=== PATIENT | male | born 1960 | race Caucasian/White ===

== ENCOUNTER 2023-01-29 10:30 | Outpatient (OUT) | payer MEDICARE, MEDICAID, SELFPAY ==
--- NOTE | 2023-01-29 10:48 | US_ITS ---
The [address] [address] Patient Name: ERIC CRAIG MRN: [id number] date: 1960 Sex: M Assigned Patient Location: US Current Patient Location: US Accession/Order Number: [id number] Exam Date: 01/29/2023 10:55 Report Date: 01/29/2023 11:50 At the request of: JEREMY MAGALLANES Procedure: US right upper quadrant EXAM: US right upper quadrant HISTORY: Right Upper Quadrant Pain R10.11 COMPARISON: None. TECHNIQUE: Real-time Limited abdomen ultrasound. Findings: Evaluation of the pancreas is limited due to overlying bowel gas. The visualized portions are heterogeneous. The hepatic parenchyma is coarsened and echogenic. No focal intrahepatic mass. The main portal vein is patent and demonstrates hepatopedal flow. The gallbladder is partially distended. No gallstones. No gallbladder wall thickening or pericholecystic fluid. 0.3 x 0.2 x 0.2 cm nonshadowing echogenic focus involving the anterior wall of the fundus. No biliary ductal dilatation. The common bile duct measures 0.6 cm. The right kidney measures 11.5 cm. Good corticomedullary differentiation. No renal stones or collecting system dilatation. IMPRESSION: 1. Coarsened and echogenic hepatic parenchymal echotexture as can be seen with diffuse hepatocellular disease such as fatty infiltration. 2. Probable gallbladder polyp. Electronically authenticated by: SLICK MEYERS Date: 01/29/2023 11:50
[2023-01-29 10:53] LABS: Basophils Percent Auto 0.2 % (0.2-2.0); Eosinophils Percent Auto 0.1 % (0.9-7.0); Hematocrit 48.8 % (42.0-54.0); Hemoglobin 16.8 g/dL (14.0-18.0); Immature Granulocytes Abs Auto 0.07 10^3/uL (0.00-0.03); Immature Granulocytes Pct Auto 0.4 % (0.0-0.5); Lymphocytes Absolute Auto 1.8 10^3/uL (1.2-3.8); Mean Corpuscular HGB Conc 34.4 g/dL (29.9-35.2); Mean Corpuscular Hemoglobin 29.6 pg (25.9-34.0); Mean Corpuscular Volume 85.9 fL (80.0-94.0); Monocytes Percent Auto 5.3 % (1.7-12.0); Platelet Count 309 10^3/uL (150-450); Red Blood Count 5.68 10^6/uL (4.70-6.10); Red Cell Distribution Width 12.9 % (11.0-15.0); White Blood Count 17.8 10^3/uL (4.0-11.0)
[2023-01-29 10:53] LABS: Bilirubin Urine NEGATIVE (NEGATIVE); Blood Urine TRACE-I (NEGATIVE); Clarity Urine CLEAR (CLEAR); Color Urine LT. YELLOW (YELLOW); Glucose Urine UA >=1000 mg/dL (NEGATIVE); Ketones Urine NEGATIVE (NEGATIVE); Leukocyte Esterase Urine NEGATIVE (NEGATIVE); Nitrite Urine NEGATIVE (NEGATIVE); Protein Urine NEGATIVE (NEG/TRACE); Specific Gravity Urine 1.025 (1.005-1.025); Urobilinogen Urine 0.2 EU/dL (0.2-1.0); pH Urine 5.5 (5.0-9.0)
[2023-01-29 11:21] LABS: Alanine Aminotransferase 46 U/L (16-63); Albumin Globulin Ratio 1.1; Alkaline Phosphatase 119 U/L (46-116); Anion Gap 12.7; Aspartate Amino Transferase 13 U/L (15-37); BUN Creatinine Ratio 23.3; Bilirubin Total 0.3 mg/dL (0.2-1.0); Calcium 9.4 mg/dL (8.5-10.1); Carbon Dioxide 27.7 mmol/L (21.0-32.0); Chloride 101 mmol/L (98-107); Estimated GFR (African America >60 (>=60); Estimated GFR (Non-African Ame >60 (>=60); Globulin 3.7 g/dL; Glucose 232 mg/dL (74-106); Potassium 4.4 mmol/L (3.5-5.1); Sodium 137 mmol/L (136-145); Total Protein 7.7 g/dL (6.4-8.2)
== END 2023-01-29 10:31 ==
PROVIDERS: PCP Family Medicine; Visit Provider Family Medicine
DX: R10.11 Right upper quadrant pain (principal)
CPT/HCPCS: 36415; 76705; 80053; 81003; 83690; 85025

== ENCOUNTER 2023-03-04 07:23 | Outpatient (OUT) | payer MEDICARE, MEDICAID, SELFPAY ==
[2023-03-04 08:30] LABS: Basophils Absolute Auto 0.1 10^3/uL (0.0-0.1); Eosinophils Absolute Auto 0.4 10^3/uL (0.0-0.7); Eosinophils Percent Auto 5.7 % (0.9-7.0); Hematocrit 49.2 % (42.0-54.0); Hemoglobin 16.9 g/dL (14.0-18.0); Immature Granulocytes Abs Auto 0.02 10^3/uL (0.00-0.03); Immature Granulocytes Pct Auto 0.3 % (0.0-0.5); Lymphocytes Absolute Auto 2.4 10^3/uL (1.2-3.8); Lymphocytes Percent Auto 30.6 % (20.5-60.0); Mean Corpuscular HGB Conc 34.3 g/dL (29.9-35.2); Mean Corpuscular Hemoglobin 30.1 pg (25.9-34.0); Mean Corpuscular Volume 87.7 fL (80.0-94.0); Mean Platelet Volume 9.1 fL (9.5-13.5); Monocytes Absolute Auto 0.8 10^3/uL (0.3-0.8); Monocytes Percent Auto 10.8 % (1.7-12.0); Neutrophils Percent Auto 51.6 % (43.0-75.0); Platelet Count 322 10^3/uL (150-450); Red Blood Count 5.61 10^6/uL (4.70-6.10); White Blood Count 7.8 10^3/uL (4.0-11.0)
== END 2023-03-04 07:24 | disposition home or self-care (01) ==
LOC: LAB 07:25
PROVIDERS: PCP Family Medicine; Visit Provider Family Medicine
DX: D72.828 Other elevated white blood cell count (principal)
CPT/HCPCS: 36415; 85025

== ENCOUNTER 2023-04-25 19:48 | Emergency (ER) | payer MEDICARE, MEDICAID, SELFPAY ==
[2023-04-25 20:04] VITALS: BP 177/83; PULSE 95; RESP 16; TEMP 38.4; O2SAT 95
--- NOTE | 2023-04-25 20:10 | XR_ITS ---
The [address] [address] Patient Name: ERIC CRAIG MRN: [id number] date: 1960 Sex: M Assigned Patient Location: ER Current Patient Location: ED.MAIN Accession/Order Number: [id number] Exam Date: 04/25/2023 20:51 Report Date: 04/25/2023 21:16 At the request of: KARLEE WOODARD Procedure: XR shoulder RT min 2V EXAM: XR shoulder RT min 2V HISTORY: Injury COMPARISON: None. TECHNIQUE: 3 views of the right shoulder are performed. FINDINGS: There is no acute fracture or dislocation. There is joint space narrowing at the glenohumeral and acromioclavicular joints. The visualized right lung is clear. XR/XR shoulder RT min 2V IMPRESSION: Degenerative changes. No acute bony abnormality. Electronically authenticated by: JACINTO GARCIA Date: 04/25/2023 21:16
--- NOTE | 2023-04-25 20:43 | ED.GENADUL1 ---
HPI - General Adult General Stated complaint: Upper Extremity Pain Time Seen by Provider: 04/25/23 20:00 Source: patient and family Mode of arrival: walk-in Limitations: no limitations History of Present Illness HPI narrative: patient with chronic right shoulder pain - for which he saw Dr Jesus in [place] and was told he had a rotator cuff injury - now presents with pain in the right shoulder that worsened 2 weeks ago after he used the right arm to start a pull start lawnmower and suddenly experienced moderate to severe pain as he aggressively and forcefully pulled. No relief with Tylenol #3. He cannot take aspirin products due to GI bleeding and cannot take ibuprofen or naproxen due to allergy which caused rash. He is scheduled to see Dr Owen in 6 days but the pain is steady, moderate to severe. Wrose with any attempts at right shoulder ROM. Localized to the anterior right shoulder. Non-radiating. No associated symptoms although he does has a bad left shoulder too . Related Data Previous Rx's Medication Instructions Recorded hydrocodone 5 mg-acetaminophen 325 1 tab PO Q6H PRN pain #14 tabs 04/25/23 mg tablet Allergies Allergy/AdvReac Type Severity Reaction Status Date / Time ibuprofen [From Motrin] AdvReac Mild Verified 04/25/23 20:10 [facility] Social History Smoking status: Current every day smoker Exam Narrative Exam Narrative: Nurses notes and vital signs reviewed and patient is not hypoxic. afebrile General: Uncomfortable. Skin: Warm, dry, no pallor noted. No rash. Head: Normocephalic, atraumatic. Cardiovascular: normal peripheral perfusion. Respiratory: No accessory muscle use or respiratory distress. Chest Wall: no tenderness Back: No midline thoracic or lumbar vertebral tenderness. No right scapular or trapezius tenderness Musculoskeletal: focal tenderness to the anterior right shoulder with increased pain with both active and passive ROM in all modalities. Right shoulder joint is not swollen, warm, erythematous. No right clavicular tenderness and little to no tenderness in the superior or lateral aspects of the right shoulder. Distal right UE with normal ROM, no distal soft tissue or bony tenderness, no upper extremity edema/swelling Neurological: A&O x4. No cranial nerve dysfunction observed. No truncal ataxia. Moves all extremities. Sensation intact. Psychiatric: Cooperative and interactive. Normal mood and affect. Constitutional Vital Signs, click to edit/add: Last Vital Signs Temp 101.2 F H 04/25/23 20:04 Pulse 95 H 04/25/23 20:04 Resp 16 04/25/23 20:04 BP 177/83 H 04/25/23 20:04 Pulse Ox 95 04/25/23 20:04 O2 Del Method Room Air 04/25/23 20:04 Course Vital Signs Vital signs: Vital Signs Temperature 101.2 F H 04/25/23 20:04 Pulse Rate 95 H 04/25/23 20:04 Respiratory Rate 16 04/25/23 20:04 Blood Pressure 177/83 H 04/25/23 20:04 Pulse Oximetry 95 04/25/23 20:04 Oxygen Delivery Method Room Air 04/25/23 20:04 Temperature 101.2 F H 04/25/23 20:04 Pulse Rate 95 H 04/25/23 20:04 Respiratory Rate 16 04/25/23 20:04 Blood Pressure 177/83 H 04/25/23 20:04 Pulse Oximetry 95 04/25/23 20:04 Oxygen Delivery Method Room Air 04/25/23 20:04 Medical Decision Making MDM Narrative Medical decision making narrative: patient given IM Dilaudid and sent for x-rays of the right shoulder. No fracture or dislocation noted. ED nurse applied a sling tot he patient's right UE and he was neurovascularly intact distally afterward. He has a fever - denies any cough, cold symptoms. No cough, abdominal pain, GI or complaints. The right shoulder joint has no erythema, warmth or swelling and the mechanism of using the right arm to start a pull mower is consistent with right rotator cuff injury. I do not think he has a septic joint. He refuses Covid swab or swab for any other pathogen. We discussed the use of tylenol tonight for the fever until he gets the [place] filled. He was prescribed [place] to take at home for the pain and I encouraged him to see Dr Jesus for follow up. I also encouraged him to come back to the ER if his pain worsens rather than improves and if the fever persists. Imaging Data xr shoulder: My impression: no fracture or dislocation. Radiologist's impression: Patient Name: ERIC CRAIG MRN: [id number] date: 1960 Sex: M Assigned Patient Location: ER Current Patient Location: ED.MAIN Accession/Order Number: [id number] Exam Date: 04/25/2023 20:51 Report Date: 04/25/2023 21:16 At the request of: KARLEE WOODARD Procedure: XR shoulder RT min 2V EXAM: XR shoulder RT min 2V HISTORY: Injury COMPARISON: None. TECHNIQUE: 3 views of the right shoulder are performed. FINDINGS: There is no acute fracture or dislocation. There is joint space narrowing at the glenohumeral and acromioclavicular joints. The visualized right lung is clear. IMPRESSION: Degenerative changes. No acute bony abnormality. Electronically authenticated by: JACINTO GARCIA Date: 04/25/2023 21:16 Discharge Plan Discharge Clinical Impression: Rotator cuff arthropathy of right shoulder, Acute pain of right shoulder, Fever Patient Disposition: Home, Self-Care Time of Disposition Decision: 21:10 Prescriptions / Home Meds: New hydrocodone-acetaminophen 5-325 mg tablet 1 tab PO Q6H PRN (Reason: pain) Qty: 14 0RF Instructions: Rotator Cuff Injury (ED), Shoulder Pain (ED), Fever in Adults (ED) Stand Alone Forms: Portal Instructions Referrals: Dakota Govea MD [Physician] - 1 week
[2023-04-25] MEDS: HYDROMORPHONE HCL 1 MG/ML CARTRIDGE IM (21:09)
[2023-04-25 21:16] VITALS: PULSE 88; RESP 16; TEMP 37.6; O2SAT 95
== END 2023-04-25 21:35 | disposition home or self-care (01) ==
PROVIDERS: Emergency Provider Emergency Medicine; PCP Family Medicine
DX: M12.811 Other specific arthropathies, not elsewhere classified, right shoulder (principal); M25.511 Pain in right shoulder; R50.9 Fever, unspecified; F17.210 Nicotine dependence, cigarettes, uncomplicated
CPT/HCPCS: 73030; 96372; 99284; J1170

== ENCOUNTER 2023-07-02 11:08 | Outpatient (OUT) | payer MEDICARE, MEDICAID, SELFPAY ==
--- NOTE | 2023-07-02 11:18 | ECG_ITS ---
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
[2023-07-02 11:49] LABS: Basophils Absolute Auto 0.1 10^3/uL (0.0-0.1); Basophils Percent Auto 0.8 % (0.2-2.0); Eosinophils Absolute Auto 0.2 10^3/uL (0.0-0.7); Eosinophils Percent Auto 2.7 % (0.9-7.0); Hematocrit 49.2 % (42.0-54.0); Hemoglobin 16.6 g/dL (14.0-18.0); Immature Granulocytes Abs Auto 0.02 10^3/uL (0.00-0.03); Immature Granulocytes Pct Auto 0.3 % (0.0-0.5); Lymphocytes Absolute Auto 2.8 10^3/uL (1.2-3.8); Lymphocytes Percent Auto 37.7 % (20.5-60.0); Mean Corpuscular HGB Conc 33.7 g/dL (29.9-35.2); Mean Corpuscular Hemoglobin 29.6 pg (25.9-34.0); Mean Corpuscular Volume 87.9 fL (80.0-94.0); Mean Platelet Volume 8.7 fL (9.5-13.5); Monocytes Absolute Auto 0.7 10^3/uL (0.3-0.8); Monocytes Percent Auto 9.7 % (1.7-12.0); Neutrophils Absolute Auto 3.7 10^3/uL (1.4-6.5); Neutrophils Percent Auto 48.8 % (43.0-75.0); Platelet Count 308 10^3/uL (150-450); Red Cell Distribution Width 12.7 % (11.0-15.0); White Blood Count 7.5 10^3/uL (4.0-11.0)
[2023-07-02 12:10] LABS: Estimated Average Glucose 263 mg/dL; Glycohemoglobin A1C 10.8 % (4.5-6.2)
[2023-07-02 12:11] LABS: Alanine Aminotransferase 42 U/L (16-63); Albumin Globulin Ratio 1.1; Albumin Level 3.8 g/dL (3.4-5.0); Alkaline Phosphatase 113 U/L (46-116); Anion Gap 7.3; Aspartate Amino Transferase 14 U/L (15-37); BUN Creatinine Ratio 15.4; Bilirubin Total 0.5 mg/dL (0.2-1.0); Calcium 9.1 mg/dL (8.5-10.1); Chloride 100 mmol/L (98-107); Chol HDL Ratio 4.1; Cholesterol 218 mg/dL (<=200); Estimated GFR (African America >60 (>=60); Estimated GFR (Non-African Ame >60 (>=60); Globulin 3.4 g/dL; Glucose 185 mg/dL (74-106); HDL Cholesterol 53 mg/dL (40-60); Magnesium 2.2 mg/dL (1.8-2.4); Potassium 4.3 mmol/L (3.5-5.1); Sodium 134 mmol/L (136-145); Total Protein 7.2 g/dL (6.4-8.2); Triglycerides 204 mg/dL (<=150); VLDL CHOLESTEROL 40.8 mg/dL
[2023-07-02 12:40] LABS: Erythrocyte Sedimentation Rate 22 mm/hr (<=20)
== END 2023-07-02 11:09 | disposition home or self-care (01) ==
LOC: LAB 11:10
PROVIDERS: PCP Family Medicine; Visit Provider Family Medicine
DX: E11.65 Type 2 diabetes mellitus with hyperglycemia (principal); R25.2 Cramp and spasm; R07.9 Chest pain, unspecified
CPT/HCPCS: 36415; 80053; 80061; 83036; 83735; 85025; 85652; 93005

== ENCOUNTER 2023-08-23 21:48 | Emergency (ER) | payer MEDICARE, MEDICAID, SELFPAY ==
[2023-08-23] VITALS (17 sets, daily range): BP systolic 132–185; BP diastolic 75–98; PULSE 74–84; RESP 10–24; TEMP 37.7; O2SAT 93–98; BMI 31.4
--- OUTSIDE RECORDS SUMMARY | 2023-08-23 21:56 | XMS_ITS | CCD ---
Author Name Unknown Address [address] [place] [address] Organization [facility] Care Team Providers Care Hematologist Oncologist Name Role Phone Kesha Trujillo Unavailable Harriet Mo Unavailable Hannah Magallanes Unavailable SONA, DR HANNAH Jovel Admitting Unavailable MAGALLANES, DR HANNAH Jovel Attending Unavailable MAGALLANES, DR HANNAH Jovel Primary Care Unavailable MAGALLANES, DR HANNAH Jovel Consulting Unavailable TAVERASRUBI Consulting Unavailable OLEXA, KESHA Admitting Unavailable OLEXA, KESHA Attending Unavailable MAGALLANES, DR HANNAH Jovel Primary Care Unavailable TAUNTON, DR BARBIE Goldberg Consulting Unavailable OLEXA, KESHA Consulting Unavailable OLEXA, KESHA Admitting Unavailable OLEXA, KESHA Attending Unavailable MAGALLANES, DR HANNAH Jovel Primary Care Unavailable MAGALLANES, DR HANNAH Jovel Referring Unavailable ZIEBER, DR YEISON Drummond Consulting Unavailable OLEXA, KESHA Consulting Unavailable BALL, DR VILLALOBOS Admitting Unavailable BALL, DR VILLALOBOS Attending Unavailable MAGALLANES, DR HANNAH Jovel Primary Care Unavailable BALL, DR VILLALOBOS Consulting Unavailable ZIEBER, DR YEISON Drummond Consulting Unavailable MAGALLANES, DR HANANH Jovel Admitting Unavailable MAGALLANES, DR HANNAH Jovel Attending Unavailable MAGALLANES, DR HANNAH Jovel Primary Care Unavailable OLEXA, KESHA Admitting Unavailable OLEXA, KESHA Attending Unavailable MAGALLANES, DR HANNAH Jovel Primary Care Unavailable MAGALLANES, DR HANNAH Jovel Primary Care Unavailable HAY ., DR DESIR Admitting Unavailable VANCE ., DR DESIR Attending Unavailable HAY ., DR DESIR Consulting Unavailable SONA, DR HANNAH Jovel Primary Care Unavailable BREE, DR CARLOS Drummond Admitting Unavailable BREE, DR CARLOS Drummond Attending Unavailable BREE, DR CARLOS Drummond Consulting Unavailable MILLIE, JOHN Consulting Unavailable HANNAH MAGALLANES Primary Care Physician [phone] Edin, Barbie Tellez Referring Unavailable Pocos, Barbie Tellez Attending Unavailable Pocos, Barbie Tellez Admitting Unavailable POCOS, BARBIE Tellez Attending Unavailable Allergies Allergy Classification Reported Allergen(s) Allergy Type Date of Onset Reaction(s) Facility (20 sources) Ibuprofen Drug Allergy hives [facility] Other (20 sources) olodaterol / tiotropium Drug Allergy shortness of breath [facility] Other (20 sources) CT Scan dye Propensity to adverse reactions [facility] Other (2 sources) Ibuprofen Drug Allergy 08-19-18 80 [facility] Repository (2 sources) Iodine (And Iodine Containting Drugs) Drug allergy (disorder) 09-07-19 16 [facility] Repository (1 source) NSAIDs Drug allergy (disorder) [facility] Repository (20 sources) fentaNYL Drug Allergy Unknown [facility] Other (3 sources) Ibuprofen Drug Allergy 01-15-20 15 Unknown [facility] Other (20 sources) Ofloxacin Drug Allergy Unknown [facility] Other (3 sources) zafirlukast Drug Allergy 01-15-20 15 Unknown [facility] Other (20 sources) Zafirlukast *ANTIASTHMATIC AND BRONCHODILATOR AGEN Propensity to adverse reactions Unknown [facility] Other (20 sources) Ibuprofen & Diet Manage Prod *ANALGESICS - ANTI-IN Propensity to adverse reactions Unknown [facility] Other (3 sources) Allergies Reconciled Propensity to adverse reactions Unknown [facility] Other (20 sources) Iodinated contrast media (substance) Drug allergy Unknown [facility] Other (3 sources) patient allergy list reviewed by nurse or physicia Propensity to adverse reactions 10-05-19 16 Comment:Done [facility] Other Medications Current Medications Medication Drug Class(es) Dates Sig (Normalized) Sig (Original) Acetaminophen / Codeine (20 sources) Opioid Agonist Start: 04-24-2023 take 1 tablet by mouth every six hours as needed Acetaminophen-Cod eine #3 300-30 MG 1 tablet as needed Orally every 6 hrs for 30 days Apr, Active Start: 04-24-2023 take 1 tablet by desirae th every six hours Acetaminophen-Codeine #3 300-30 MG 1 tablet as needed Orally every 6 hrs for 30 days Apr, Active Start: 03-25-2023 take 1 tablet by desirae th every six hours Acetaminophen-Codeine #3 300-30 MG 1 tablet as needed Orally every 6 hrs for 30 days Mar, Active Start: 02-22-2023 take 1 tablet by desirae th every six hours Acetaminophen-Codeine #3 300-30 MG 1 tablet as needed Orally every 6 hrs for 30 days Feb, Active Start: 02-20-2023 take 1 tablet by desirae th every six hours Acetaminophen-Codeine #3 300-30 MG 1 tablet as needed Orally every 6 hrs for 30 days Feb, Active Start: 01-17-2023 take 1 tablet by desirae th every six hours Acetaminophen-Codeine #3 300-30 MG 1 tablet as needed Orally every 6 hrs for 30 days Jan, Active Start: 12-24-2022 take 1 tablet by desirae th every six hours Acetaminophen-Codeine #3 300-30 MG 1 tablet as needed Orally every 6 hrs for 30 days December, Active Start: 11-27-2022 take 1 tablet by desirae th every six hours Acetaminophen-Codeine #3 300-30 MG 1 tablet as needed Orally every 6 hrs for 30 days Nov, Active Start: 10-31-2022 Acetaminophen- Codeine #4 300-60 MG 2 Orally bid prn for 30 days Oct, Active Start: 10-03-2022 Acetaminophen- Codeine #4 300-60 MG 2 Orally bid prn for 30 days Sep, Active take 1 tablet by desirae th every six hours Acetaminophen-Codeine #4 300-60 MG 1 tablet as needed Orally every 6 hrs Active acetaminophen 325 mg / HYDROcodone bitartrate 10 mg oral tablet (18 sources) Opioid Agonist Start: 08-13-2023 take 1 tablet by mouth every six hours HYDROcodone-Acetaminophen 10-325 MG 1 tablet as needed Orally every 6 hrs for 7 days Jul, Active Start: 07-23-2023 take 1 tablet by desirae th every six hours HYDROcodone-Acetaminophen 10-325 MG 1 tablet as needed Orally every 6 hrs for 30 days Jul, Active Start: 07-23-2023 take 1 tablet by desirae th every six hours HYDROcodone-Acetaminophen 10-325 MG 1 tablet as needed Orally every 6 hrs for 30 days Jul, Active Start: 07-23-2023 take 1 tablet by desirae th every six hours HYDROcodone-Acetaminophen 10-325 MG 1 tablet as needed Orally every 6 hrs for 30 days Jul, Active Start: 06-20-2023 take 1 tablet by desirae th every six hours HYDROcodone-Acetaminophen 10-325 MG 1 tablet as needed Orally every 6 hrs for 30 days Jun, Active Start: 06-18-2023 take 1 tablet by desirae th every six hours HYDROcodone-Acetaminophen 10-325 MG 1 tablet as needed Orally every 6 hrs for 7 days May, Active Start: 06-10-2023 take 1 tablet by desirae th every six hours HYDROcodone-Acetaminophen 10-325 MG 1 tablet as needed Orally every 6 hrs for 7 days May, Active Start: 06-03-2023 take 1 tablet by desirae th every six hours HYDROcodone-Acetaminophen 10-325 MG 1 tablet as needed Orally every 6 hrs for 7 days May, Active Start: 05-28-2023 take 1 tablet by desirae th every six hours HYDROcodone-Acetaminophen 10-325 MG 1 tablet as needed Orally every 6 hrs for 7 days May, Active Start: 2023 take 1 tablet by desirae th every six hours HYDROcodone-Acetaminophen 10-325 MG 1 tablet as needed Orally every 6 hrs for 7 days May, Active [id number] actuat albuterol 0.09 mg/actuat metered dose inhaler (10 sources) beta2-Adrenergic Agonist Start: 06-25-2023 take 2 puff(s) by inhalation every four hours as needed Albuterol Sulfate HFA 108 (90 Base) MCG/ACT 2 puff Inhalation every 4 hrs prn Jun, Active Start: 06-25-2023 take 2 puff(s) by in halation every four hours as needed Albuterol Sulfate HFA 108 (90 Base) MCG/ACT 2 puff Inhalation every 4 hrs prn Jun, Active Start: 06-25-2023 take 2 puff(s) by in halation every four hours as needed Albuterol Sulfate HFA 108 (90 Base) MCG/ACT 2 puff Inhalation every 4 hrs prn Jun, Active amoxicillin 875 mg / clavulanate 125 mg oral tablet (6 sources) Penicillin-class Antibacterial Start: 10-31-2022 take 1 tablet by mouth every twelve hours Amoxicillin-Pot Clavulanate 875-125 MG 1 tablet Orally every 12 hrs for 10 day(s) Oct, Active atorvastatin 20 mg oral tablet (9 sources) HMG-CoA Reductase Inhibitor take 1 tablet by mouth every twenty-four hours Atorvastatin Calcium 20 MG 1 tablet Orally Once a day for 30 days Active azithromycin 250 mg oral tablet (20 sources) Macrolide Antimicrobial Start: 05-28-2023 Azithromycin 250 MG as directed Orally 2 tabs po today, then 1 tab daily x 4 more days for 5 May, Active Start: 04-30-2023 Azithromycin 2 50 MG as directed Orally 2 tabs po today, then 1 tab daily x 4 more days for 5 Apr, Active Start: 05-26-2021 Azithromycin 2 50 MG as directed Orally 2 tabs po today, then 1 tab daily x 4 more days for 5 Nov, Active DULoxetine 60 mg delayed release oral capsule (8 sources) Serotonin and Norepinephrine Reuptake Inhibitor Start: 02-20-2023 take 1 capsule by mouth every twenty-four hours Cymbalta 60 MG 1 capsule Orally Once a day for 30 days Feb, Active glipiZIDE 5 mg / metFORMIN hydrochloride 500 mg oral tablet (9 sources) Biguanide, Sulfonylurea take 2 tablets by mouth twice daily glipiZIDE-met FORMIN HCl 5-500 MG 2 tab Orally bid Active take 1 tablet by mouth twice cynthia ly glipiZIDE-metFORMIN HCl 5-500 MG 1 tablet with a meal Orally bid for 30 days Active methylPREDNISolone 4 mg oral tablet (12 sources) Corticosteroid Start: 05-28-2023 methylPREDNISo lone 4 MG as directed Orally for 6 days May, Active Start: 05-26-2021 Medrol (Boris) 4 MG as directed Orally for daily dose take half with breakfast half with dinner for 6 days May, Not-Taking predniSONE 10 mg oral tablet (14 sources) Start: 04-30-2023 predniSONE 10 MG 4 tabs po daily x 2 days, 3 tabs daily x 2 days, 2 tabs daily x 2 days, 1 tab daily x 2 days Orally Once a day for 8 12 Apr, 2023 Active Start: 11-23-2022 take 2 tablets by mo [facility] every twenty-four hours predniSONE 20 MG 2 tablets Orally Once a day for 5 days Nov, Active predniSONE 20 MG TAKE 3 TABLETS BY MOUTH DAILY X 3 DAYS, 2 TABLETS DAILY X 3 DAYS, 1 TABLET DAILY X 3 DAYS for 9 Active Completed/Discontinued Medications Medication Drug Class(es) Dates Sig (Normalized) Sig (Original) dextromethorphan hydrobromide 30 mg / pyrilamine maleate 30 mg oral tablet (5 sources) Uncompetitive Y-ivfdiu-R-aspartate Receptor Antagonist, Sigma-1 Agonist Start: 05-26-2021 take 1 tablet by mouth every eight hours [place] DMT 30-30 MG 1 tablet Orally every 8 hours for 7 days May, Not-Taking triamcinolone acetonide 40 mg/ml injectable suspension (20 sources) Corticosteroid Start: 12-12-2021 Kenalog-40 Nov, 40 mg Start: 12-12-2021 Kenalog -40 mg Nov, 40 mg Problems Active Problems Problem Classification Problem Date Documented Da te Episodic/Chronic Abdominal pain (20 sources) Right upper quadrant pain; Translations: [Right upper quadrant pain] Onset: 9 Episodic Acute bronchitis (9 sources) Acute bronchitis; Translations: [Acute bronchitis due to other specified organisms] Onset: 8 Episodic Anxiety disorders (3 sources) Anxiety disorder; Translations: [Other specified anxiety disorders] Onset: 9 Chronic Asthma (20 sources) Mild intermittent asthma; Translations: [Mild intermittent asthma, uncomplicated] Onset: 5 Chronic Biliary tract disease (20 sources) Chronic cholecystitis due to gallbladder calculus with obstruction; Translations: [Calculus of gallbladder with chronic cholecystitis with obstruction] Onset: 6 Episodic Chronic obstructive pulmonary disease and bronchiectasis (20 sources) Chronic obstructive lung disease; Translations: [Chronic obstructive pulmonary disease, unspecified] Onset: 9 Chronic Chronic obstructive pulmonary disease and bronchiectasis (12 sources) Bronchitis, not specified as acute or chronic; Translations: [Bronchitis] Onset: 1 Resolved: 1 Episodic Diabetes mellitus with complications (20 sources) Hyperglycemia due to type 2 diabetes mellitus; Translations: [Type 2 diabetes mellitus with hyperglycemia] Onset: 9 Chronic Diabetes mellitus without complication (4 sources) Type 2 diabetes mellitus without complications; Translations: [Type 2 diabetes mellitus without complication] Onset: 7 Chronic Diseases of white blood cells (20 sources) Leukocytosis; Translations: [Other elevated white blood cell count] Chronic Disorders of teeth and jaw (3 sources) Jaw pain; Translations: [Jaw pain] Episodic Esophageal disorders (20 sources) Gastroesophageal reflux disease without esophagitis; Translations: [Gastro-esophageal reflux disease without esophagitis] Chronic Gastrointestinal hemorrhage (20 sources) Rectal hemorrhage; Translations: [Hemorrhage of anus and rectum] Onset: 6 Episodic Genitourinary symptoms and ill-defined conditions (3 sources) Blood in urine; Translations: [Hematuria, unspecified] Episodic Malaise and fatigue (3 sources) Fatigue; Translations: [Other fatigue] Episodic Nonspecific chest pain (8 sources) Chest pain, unspecified; Translations: [Chest pain] Onset: 6 Episodic Osteoarthritis (20 sources) Osteoarthritis of joint of left shoulder region; Translations: [Primary osteoarthritis, left shoulder] Onset: 2 Resolved: 2 Chronic Other connective tissue disease (20 sources) Supraspinatus tear; Translations: [Unspecified rotator cuff tear or rupture of left shoulder, not specified as traumatic] Episodic Other connective tissue disease (20 sources) Full thickness rotator cuff tear; Translations: [Complete rotator cuff tear or rupture of left shoulder, not specified as traumatic] Episodic Other connective tissue disease (3 sources) Neuralgia; Translations: [Neuralgia and neuritis, unspecified] Episodic Other connective tissue disease (1 source) Cramp and spasm Episodic Other connective tissue disease (1 source) Unspecified disorder of synovium and tendon, right shoulder Episodic Other diseases of bladder and urethra (3 sources) Disorder of bladder; Translations: [Other specified disorders of bladder] Chronic Other gastrointestinal disorders (1 source) Other fecal abnormalities Episodic Other gastrointestinal disorders (3 sources) Abnormal feces; Translations: [Other fecal abnormalities] Episodic Other gastrointestinal disorders (20 sources) Dysphagia; Translations: [Dysphagia, unspecified] Episodic Other liver diseases (20 sources) High enzyme level in serum; Translations: [Abnormal levels of other serum enzymes] Episodic Other lower respiratory disease (20 sources) Dyspnea; Translations: [Shortness of breath] Episodic Other nervous system disorders (4 sources) Other chronic pain; Translations: [OTHER CHRONIC PAIN] Onset: 2 Chronic Other nervous system disorders (20 sources) Chronic pain; Translations: [Other chronic pain] Chronic Other non-traumatic joint disorders (20 sources) Derangement of left shoulder joint; Translations: [Other specific joint derangements of left shoulder, not elsewhere classified] Chronic Other non-traumatic joint disorders (4 sources) Other specific joint derangements of left shoulder, not elsewhere classified; Translations: [OTH SPEC JOINT DERANG LT SHLDR NEC] Onset: 2 Chronic Other non-traumatic joint disorders (8 sources) Pain in left shoulder; Translations: [PAIN IN LEFT SHOULDER] Onset: 2 Resolved: 2 Episodic Other non-traumatic joint disorders (9 sources) Pain in right shoulder Episodic Other nutritional; endocrine; and metabolic disorders (20 sources) Body mass index 40+ - severely obese; Translations: [Body mass index (BMI) 45.0-49.9, adult] Chronic Other nutritional; endocrine; and metabolic disorders (3 sources) Obese class I; Translations: [Body mass index (BMI) 32.0-32.9, adult] Chronic Other nutritional; endocrine; and metabolic disorders (3 sources) Obesity; Translations: [Obesity, unspecified] Onset: 8 Chronic Other upper respiratory disease (20 sources) Chronic rhinitis; Translations: [Chronic rhinitis] Chronic Other upper respiratory disease (3 sources) Seasonal allergic rhinitis; Translations: [Other seasonal allergic rhinitis] Chronic Otitis media and related conditions (3 sources) Otitis media; Translations: [Otitis media, unspecified, unspecified ear] Episodic Residual codes; unclassified (20 sources) H/O: asbestos exposure; Translations: [Contact with and (suspected) exposure to asbestos] Onset: 5 Episodic Spondylosis; intervertebral disc disorders; other back problems (20 sources) Degeneration of lumbar intervertebral disc; Translations: [Other intervertebral disc degeneration, lumbar region] Onset: 6 Chronic Sprains and strains (2 sources) Superior glenoid labrum lesion of right shoulder, subsequent encounter Episodic Substance-related disorders (20 sources) Smoker; Translations: [Nicotine dependence, unspecified, uncomplicated] Onset: 2 Resolved: 2 Chronic Past or Other Problems Problem Classification Problem Date Documented Da te Episodic/Chronic Blindness and vision defects (4 sources) Other visual disturbances; Translations: [OTHER VISUAL DISTURBANCES] Onset: 12-28-2021 Episodic Calculus of urinary tract (1 source) Personal history of urinary calculi; Translations: [PERSONAL HISTORY OF URINARY CALCULI] Onset: 06-11-2022 Episodic Deficiency and other anemia (3 sources) Iron deficiency anemia; Translations: [Iron deficiency anemia, unspecified] Onset: 09-17-2016 Episodic Diabetes mellitus without complication (3 sources) Hyperglycemia; Translations: [Hyperglycemia, unspecified] Onset: 01-08-2017 Episodic Lymphadenitis (3 sources) Acute lymphadenitis; Translations: [Acute lymphadenitis, unspecified] Onset: 08-29-2017 Episodic Nonmalignant breast conditions (3 sources) Pain of breast; Translations: [Mastodynia] Onset: 10-05-2015 Episodic Other aftercare (1 source) 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; Translations: [OTH SUPERINTENDENT [employer]ARD [employer]ILL CURRENT DRUG THERAPY] Onset: 12-29-2021 Episodic Other connective tissue disease (1 source) Unspecified rotator cuff tear or rupture of left shoulder, not specified as traumatic Onset: 02-06-2022 Resolved: 02-06-2022 Episodic Other connective tissue disease (1 source) Complete rotator cuff tear or rupture of left shoulder, not specified as traumatic Onset: 12-12-2021 Resolved: 12-12-2021 Episodic Other connective tissue disease (1 source) Unspecified disorder of synovium and tendon, left shoulder Onset: 12-12-2021 Resolved: 12-12-2021 Episodic Other ear and sense organ disorders (3 sources) Impacted cerumen; Translations: [Impacted cerumen] Onset: 03-13-2018 Episodic Pneumonia (except that caused by tuberculosis or sexually transmitted disease) (3 sources) Pneumonia; Translations: [Pneumonia, unspecified organism] Onset: 07-28-2015 Episodic Spondylosis; intervertebral disc disorders; other back problems (4 sources) Radiculopathy, lumbar region; Translations: [Dorsalgia, unspecified] Onset: 06-11-2022 Episodic Syncope (3 sources) Syncope and collapse; Translations: [Syncope and collapse] Onset: 09-21-2016 Episodic Results Test Name Value Interpretation Reference Range Facility [facility] 07-02-2023 Magnesium [Mass/Vol] 2.7575313 mg/dL Normal 1.8-2.4 mg/dL [facility] Other Magnesium see note [facility] Other MRI Shoulder w/o Contrast Ilya holt 05-31-2023 MRI Shoulder w/o Contrast Right Exam Date/Time: 05/30/2023 14:25 EDT Reason for Exam: [id number] Report IMPRESSION: Full-thickness rotator cuff tearing involving entire infraspinatus, and portion of supraspinatus as discussed. EXAMINATION: MRI Shoulder w/o Contrast Right HISTORY: Right shoulder pain. Injury starting a leaf blower. TECHNIQUE: Routine non-contrast MRI of the shoulder , right side COMPARISON: None RESULT: Overall limitations from motion. Best possible images submitted. Repeat sequences performed. Within these limits: Rotator Cuff Tendons: Full-thickness rotator cuff tearing involving entire infraspinatus, and the more posterior/junctional fibers of supraspinatus, with medial retraction of torn fibers to near the acromion, with underlying tendinosis. The more anterior fibers of supraspinatus appear grossly intact within limits of motion. Mild tendinosis involving subscapularis, without distinct tear. Teres minor appears intact. Areas of reactive cystic change at the insertions. Long Head Biceps Tendon: Appears intact with appropriate location. Muscle: Diffuse edema signal involving infraspinatus. Small amount of edema involving supraspinatus. No distinct associated volume loss. Labrum: Areas of fraying and/or tearing. Bones and Marrow: No evidence of fracture or bone marrow replacing process. Glenohumeral Joint: Osteophytes without distinct measurable full-thickness chondral defect within limits of motion. Small joint effusion. Acromioclavicular Joint: Moderate to severe degenerative changes with subchondral cystic change, undersurface osteophytes. Other: Fluid extending into the subacromial subdeltoid bursa. Report Ordering Provider: Barbie Jesus FINAL REPORT Dictated: 05/31/2023 11:50 am Ian Singh MD Signed (Electronic Signature): 05/31/2023 11:50 am Signed by: Ian Singh MD Transcribed by: TAMARA Technologist: STELLA Technical Comments None Normal [facility] Consent for Treatmenton 05-19 Consent for Treatment [id number] 0TIFF Normal [facility] RAD - MRI Screening Formon 1 RAD - MRI Screening Form [id number] TIFF Normal [facility] Physician Orderon 05-09-2023 Physician Order [id number]. 00CD:127 Normal [facility] XR CHEST 2 Von 11-24-2022 XR CHEST 2 V EXAM: CHEST 2 VIEWS HISTORY: Bronchitis TECHNIQUE: PA and lateral views chest. COMPARISON: 11/21/2019 FINDINGS: The lungs are clear. There is no focal lung consolidation, pleural effusion or pneumothorax. Pulmonary vasculature is within normal limits. The cardiomediastinal silhouette is normal. IMPRESSION: 1. Lungs clear without consolidation or effusion. Recommend followup imaging if symptoms worsen or persist. Electronically authenticated by: RUBI TAVERAS Date: 2022-11-24 17:17 Normal [facility] CT LUNG CANCER SCREENINGon 09-20-2021 CT LUNG CANCER SCREENING EXAMINATION: CT LUNG CANCER SCREENING HISTORY: Tobacco dependence caused by cigarettes COMPARISON: CT chest 05/19/2020 TECHNIQUE: Axial, Coronal, and Sagittal images were created without the administration of IV contrast material. Dose reduction techniques were achieved by using automated exposure control and/or adjustment of mA and/or kV according to patient size and/or use of iterative reconstruction technique. FINDINGS: LUNGS: No visible pulmonary disease. PLEURA: No mass, effusion, or pneumothorax. VASCULATURE: No abnormality. ROMÁN: No mass or pathologic adenopathy. MEDIASTINUM: No mass or pathologic adenopathy. CARDIAC: No enlargement, pericardial thickening, or significant calcification. AORTA: No aneurysm or dissection. CHEST WALL: No mass or axillary adenopathy BONES: No bone lesion or fracture. LIMITED ABDOMEN: No suspicious findings. Limited images of the upper abdomen. OTHER: Negative. IMPRESSION: 1. Lung-RADS Category 1 Negative. No nodules and definitely benign nodules. Continue annual screening with LDCT in 12 months. Electronically authenticated by: YEISON NAVAS Date: 2022-07-20 07:18 Normal [facility] CBC AUTO DIFFon 06-07-2022 BASO # 0.1 103/ul Normal 0.0-0.1 [facility] Comment on above: Performed By: #### C BC #### [facility] [address] [address] [address] Eran Chacon Basophils/100 WBC (Bld) 0.6 % Normal 0.2-2.0 [facility] Comment on above: Performed By: #### C BC #### [facility] [address] [address] [address] Eran Chacon EO # 0.3 103/ul Normal 0.0-0.7 [facility] Comment on above: Performed By: #### C BC #### [facility] [address] [address] [address] Eran Chacon Eosinophils/100 WBC (Bld) 3.3 % Normal 0.9-7.0 [facility] Comment on above: Performed By: #### C BC #### [facility] [address] [address] [address] Eran Chacon Erythrocyte distribution width (RBC) [Ratio] 12.9 % Normal 11.0-15.0 [facility] Comment on above: Performed By: #### C BC #### [facility] Laboratory [address] [address] [address] Eran Chacon Hematocrit (Bld) [Volume fraction] 47.7 % Normal 42.0-54.0 [facility] Comment on above: Performed By: #### C BC #### [facility] [address] [address] [address] Eran Chacon Hemoglobin (Bld) [Mass/Vol] 15.9 g/dL Normal 14.0-18.0 [facility] Comment on above: Performed By: #### C BC #### [facility] [address] [place] [address] Dr. Eran Chacon IG # 0.02 10e3/ul Normal 0.00-0.03 [facility] Comment on above: Performed By: #### C BC #### [facility] [address] [place] [address] Dr. Eran Chacon IG % 0.2 % Normal 0.0-0.5 [facility] Comment on above: Performed By: #### C BC #### [facility] [address] [place] [address] Dr. Eran Chacon LYMPH # 3.4 103/ul Normal 1.2-3.8 [facility] Comment on above: Performed By: #### C BC #### [facility] [address] [place] [address] Dr. Eran Chacon Lymphocytes/100 WBC (Bld) 34.5 % Normal 20.5-60.0 [facility] Comment on above: Performed By: #### C BC #### [facility] [address] [place] [address] Dr. Eran Chacon MANUAL DIFF REQ NO Normal [facility] Comment on above: Performed By: #### C BC #### [facility] [address] [place] [address] Dr. Eran Chacon MCH (RBC) [Entitic mass] 29.6 pg Normal 25.9-34.0 [facility] Comment on above: Performed By: #### C BC #### [facility] [address] [place] [address] Dr. Eran Chacon MCHC (RBC) [Mass/Vol] 33.3 g/dL Normal 29.9-35.2 [facility] Comment on above: Performed By: #### C BC #### [facility] [address] [place] [address] Dr. Eran Chacon MCV (RBC) [Entitic vol] 88.8 fL Normal 80.0-94.0 [facility] Comment on above: Performed By: #### C BC #### [facility] [address] [place], [place] [id number] Dr. Eran Chacon MONO # 0.9 103/ul Critically high 0.3-0.8 [facility] Comment on above: Performed By: #### C BC #### [facility] [address] [place] [address] Dr. Eran Chacon Monocytes/100 WBC (Bld) 9.3 % Normal 1.7-12.0 [facility] Comment on above: Performed By: #### C BC #### [facility] [address] [place] [address] Dr. Eran Chacon NEUT # 5.2 103/ul Normal 1.4-6.5 [facility] Comment on above: Performed By: #### C BC #### [facility] [address] [place] [address] Dr. Eran Chacon Neutrophils/100 WBC (Bld) 52.1 % Normal 43.0-75.0 [facility] Comment on above: Performed By: #### C BC #### [facility] [address] [place] [address] Dr. Eran Chacon Platelet mean volume (Bld) [Entitic vol] 8.8 fL Critically low 9.5-13.5 [facility] Comment on above: Performed By: #### C BC #### [facility] [address] [place] [address] Dr. Eran Chacon PLT 287 103/ul Normal 150-450 [facility] Comment on above: Performed By: #### C BC #### [facility] [address] [place] [address] Dr. Eran Chacon RBC 5.37 106/ul Normal 4.70-6.10 [facility] Comment on above: Performed By: #### C BC #### [facility] [address] [place] [address] Dr. Eran Chacon WBC 9.9 103/ul Normal 4.0-11.0 [facility] Comment on above: Performed By: #### C BC #### [facility] [address] [place] [address] Dr. Eran Chacon ER URINE PROFILEon 2 Bilirubin Ql (U) Negative Normal NEGATIVE [facility] Comment on above: Performed By: #### Med SHER UMICRO #### [facility] [address] [place] [address] Dr. Eran Chacon Clarity (U) CLEAR Normal CLEAR [facility] Comment on above: Performed By: #### Med SHER UMICRO #### [facility] [address] [address] [address] Eran Chacon Color (U) YELLOW Normal YELLOW [facility] Comment on above: Performed By: #### Med SHER UMICRO #### [facility] [address] [place] [address] Dr. Eran GATES A micrscopic examination will be performed if indicated. Normal [facility] Comment on above: Performed By: #### Med SHER UMICRO #### [facility] [address] [place] [address] Dr. Eran Chacon Glucose Ql (U) 500 mg/dl Abnormal NEGATIVE [facility] Comment on above: Performed By: #### Med SHER UMICRO #### [facility] [address] [place] [address] Dr. Eran Chacon Hemoglobin Ql (U) TRACE-INTACT Abnormal NEGATIVE [facility] Comment on above: Performed By: #### Med SHER UMICRO #### [facility] [address] [place] [address] Dr. Eran Chacon Ketones Ql (U) Negative Normal NEGATIVE [facility] Comment on above: Performed By: #### Med SHER UMICRO #### [facility] [address] [place] [address] Dr. Eran Chacon LEUKOCYTES Negative Normal NEGATIVE [facility] Comment on above: Performed By: #### Med SHER UMICRO #### [facility] [address] [place] [address] Dr. Eran Chacon Nitrite Ql (U) Negative Normal NEGATIVE [facility] Comment on above: Performed By: #### Med SHER UMICRO #### [facility] [address] [address] [address] Eran Chacon pH (U) 6.0 [pH] Normal 5-9 [facility] Comment on above: Performed By: #### HANNA BATES #### [facility] [address] [place] [address] Dr. Eran Chacon SPEC GRAVITY 1.025 Normal 1.005-<=1.025 [facility] Comment on above: Performed By: #### HANNA BATES #### [facility] [address] [place] [address] Dr. Eran Chacon UA PROTEIN Negative Normal NEGATIVE/ TRACE [facility] Comment on above: Performed By: #### HANNA BATES #### [facility] [address] [place] [address] Dr. Eran Chacon UR MICRO IND INDICATED Normal [facility] Comment on above: Performed By: #### HANNA BATES #### [facility] [address] [place] [address] Dr. Eran Chacon Urobilinogen Qn (U) 0.2 {Aureliano'U}/dL Normal 0.2 - 1.0 [facility] Comment on above: Performed By: #### HANNA BATES #### [facility] [address] [place] [address] Dr. Eran Chacon PROF 14(COMP METB)on 022 Albumin [Mass/Vol] 4.0 g/dL Normal 3.4-5.0 [facility] Comment on above: Performed By: #### C MP #### [facility] [address] [place] [address] Dr. Eran Chacon Albumin/Globulin [Mass ratio] 1.2 {ratio} Normal [facility] Comment on above: Performed By: #### C MP #### [facility] [address] [place] [address] Dr. Eran Chacon ALP [Catalytic activity/Vol] 104 U/L Normal 46-116 [facility] Comment on above: Performed By: #### C MP #### [facility] [address] [address] [address] Eran Chacon ALT [Catalytic activity/Vol] 28 U/L Normal 16-63 [facility] Comment on above: Performed By: #### C MP #### [facility] [address] [place] [address] Dr. Eran Chacon Anion gap [Moles/Vol] 7.2 mmol/L Normal [facility] Comment on above: Performed By: #### C MP #### [facility] [address] [address] [address] Eran Chacon AST [Catalytic activity/Vol] 14 U/L Critically low 15-37 [facility] Comment on above: Performed By: #### C MP #### [facility] [address] [place] [address] Dr. Eran Chacon Bilirubin [Mass/Vol] 0.4 mg/dL Normal 0.2-1.0 [facility] Comment on above: Performed By: #### C MP #### [facility] [address] [place] [address] Dr. Eran Chacon Calcium [Mass/Vol] 9.0 mg/dL Normal 8.5-10.1 [facility] Comment on above: Performed By: #### C MP #### [facility] [address] [place] [address] Dr. Eran Chacon Chloride [Moles/Vol] 103 mmol/L Normal 98-107 [facility] Comment on above: Performed By: #### C MP #### [facility] [address] [address] [address] Eran Chacon CO2 [Moles/Vol] 30.0 mmol/L Normal 21.0-32.0 [facility] Comment on above: Performed By: #### C MP #### [facility] [address] [place] [address] Dr. Eran Chacon Creatinine [Mass/Vol] 0.85 mg/dL Normal 0.70-1.30 [facility] Comment on above: Performed By: #### C MP #### [facility] [address] [place] [address] Dr. Eran Chacon EGFR-AF IRISH >60 Normal >=60 [facility] Comment on above: Performed By: #### C MP #### [facility] [address] [address] [address] Eran Chacon EGFR-NON AF IRISH >60 Normal >=60 [facility] Comment on above: Performed By: #### C MP #### [facility] [address] [address] [address] Eran Chacon Globulin (S) [Mass/Vol] 3.3 g/dL Normal [facility] Comment on above: Performed By: #### C MP #### [facility] [address] [address] [address] Eran Chacon Glucose [Mass/Vol] 165 mg/dL Critically high 74-106 [facility] Comment on above: Performed By: #### C MP #### [facility] [address] [place] [address] Dr. Eran Chacon Potassium [Moles/Vol] 4.2 mmol/L Normal 3.5-5.1 [facility] Comment on above: Performed By: #### C MP #### [facility] [address] [place] [address] Dr. Eran Chacon Protein [Mass/Vol] 7.3 g/dL Normal 6.4-8.2 [facility] Comment on above: Performed By: #### C MP #### [facility] [address] [place] [address] Dr. Eran Chacon Sodium [Moles/Vol] 136 mmol/L Normal 136-145 [facility] Comment on above: Performed By: #### C MP #### [facility] [address] [address] [address] Eran Chacon Urea nitrogen [Mass/Vol] 10.0 mg/dL Normal 7.0-18.0 [facility] Comment on above: Performed By: #### C MP #### [facility] [address] [place] [address] Dr. Eran Chacon Urea nitrogen/Creatini ne [Mass ratio] 11.8 mg/mg Normal [facility] Comment on above: Performed By: #### C MP #### [facility] [address] [place] [address] Dr. Eran Chacon URINE MICROSCOPIC ONLYon BACTERIA NONE SEEN Normal NONE SEEN [facility] Comment on above: Performed By: #### E RUR, UMICRO #### [facility] [address] [place] [address] Dr. Eran Chacon Bacteria identified Cx Nom (U) NOT INDICATED Normal [facility] Comment on above: Performed By: #### E RUR, UMICRO #### [facility] [address] [place] [address] Dr. Eran Chacon CAST NONE SEEN Normal NONE SEEN [facility] Comment on above: Performed By: #### E RUR, UMICRO #### [facility] [address] [place] [address] Dr. Eran Chacon Crystals LM Nom (Urine sed) NONE SEEN Normal NONE SEEN [facility] Comment on above: Performed By: #### E RUHoda, UMICRO #### [facility] [address] [place] [address] Dr. Eran Chacon Epithelial cells LM Ql (Urine sed) RARE Normal NONE SEEN /RARE [facility] Comment on above: Performed By: #### E NIKKY UMICRO #### [facility] [address] [place] [address] Dr. Eran Chacon MUCOUS NONE SEEN Normal NONE SEEN [facility] Comment on above: Performed By: #### Med SHER UMICRO #### [facility] [address] [place] [address] Dr. Eran Chacon RBC 0-2 Normal 0-2 [facility] Comment on above: Performed By: #### Med SHER UMICRO #### [facility] [address] [place] [address] Dr. Eran Chacon WBC 2-5 Abnormal NONE SEEN [facility] Comment on above: Performed By: #### Med SHER UMICRO #### [facility] [address] [place] [address] Dr. Eran Chacon MRI SHOULDER LT WO CONon MRI SHOULDER LT WO CON EXAMINATION: MRI SHOULDER LT WO CON HISTORY: Derangement of left shoulder joint ; chronic left shoulder pain COMPARISON: No relevant comparison available. TECHNIQUE: A variety of imaging planes and parameters were utilized for visualization of suspected pathology. Imaging was performed without contrast. FINDINGS: ROTATOR CUFF REGION CUFF TENDONS: Thickening and increased T2 signal of the supraspinatus tendon. No appreciable disruption or retraction. CUFF MUSCLES: Normal appearing muscles. DELTOID: Normal. No significant atrophy or tear. LONG BICEPS TENDON: Normal. No abnormal signal, attrition, or tear. LABRUM/BICEPS ANCHOR SUPERIOR: Normal. No visible labral tear or biceps anchor pathology. ANTERIOR/INFERIOR: Normal. No visible tear or attrition. POSTERIOR: Normal. No posterior labrum abnormality. CAPSULE Normal. No visible capsular laxity or thickening. AC JOINT REGION AC JOINT: Marked osteoarthropathy with moderate to severe narrowing of the underlying coracoacromial arch. AC LIGAMENTS: Normal acromioclavicular ligament. CC LIGAMENTS: Normal coracoclavicular ligaments. ACROMION: Normal horizontal (Type I) configuration. SUBACROMIAL BURSA: Small effusion. HYALINE CARTILAGE: Normal. No visible cartilage narrowing or focal defect. OTHER BONES: 1.3 cm subchondral cysts within the posterior lateral aspect the humeral head. OTHER OBSERVATIONS: Negative. No other significant findings or glenohumeral effusion. IMPRESSION: 1. Suspect partial tear of the supraspinatus tendon. Given the fluid within the subacromial bursa, there may be a focal full-thickness tear. 2. Marked degenerative changes of acromioclavicular joint impinging upon the superior rotator cuff. 3. Prominent 1.3 cm subchondral cyst within the posterior lateral aspect of the humeral head deep to the rotator cuff attachment. Electronically authenticated by: YEISON NAVAS Date: 2022-02-02 17:09 Normal [facility] XR shoulder LT min 2V*on XR shoulder LT min 2V* [facility] [place] [address] [place] [id number] XRay Report Signed Patient: Eric Carig MR#: [id number] 232 : 1960 Acct:[id number] Age/Sex: 61 / M ADM Date: 01/25/22 Loc: [facility] Room: Type: [facility] Attending Dr: Kesha Trujillo MD Ordering Provider: Kesha Trujillo MD Date of Service: 01/25/22 XR/XR shoulder LT min 2V*: Internal derangement of left shoulder Copies to: Kesha Trujillo MD LEFT SHOULDER - 4 views CLINICAL HISTORY: Chronic left shoulder pain. History of fall 2 days ago. COMPARISON: 12/12/2021 AP, Y, axillary and Grashey views were obtained. There is osteopenia. There is no acute fracture or dislocation. There is mild hypertrophic degenerative change at the acromioclavicular joint and minor at the inferior glenohumeral joint. There is also sclerosis at the greater tuberosity. There are no significant soft tissue abnormalities. XR/XR shoulder LT min 2V* IMPRESSION: OSTEOPENIA AND MILD DEGENERATIVE CHANGES. NO ACUTE BONY INJURY. Impression dictated by: Otilia Nunez M.D.01/25/2022 11:41 AM Dictation Location: [address] [address] Transcribed By: [facility] 01/25/22 1141 Dictated By: Otilia Nunez MD 01/25/22 1139 Signed By: 01/25/22 1141 [facility] Vital Signs Date Time Vital Sign Value Performing Clinician Facility 08-13-2023 10:30-0500 Body height 175.26 cm Hannah Magallanes Other [facility] Other 08-13-2023 10:30-0500 Body mass index (BMI) [Ratio] 33.9 kg/m2 Hannah Magallanes Other [facility] Other 08-13-2023 10:30-0500 Body weight 104.15 kg Hannah Magallanes Other [facility] Other 08-13-2023 10:30-0500 Diastolic blood pressure 78 mm[Hg] Hannah Magallanes Other [facility] Other 08-13-2023 10:30-0500 Systolic blood pressure 124 mm[Hg] Hannah Magallanes Other [facility] Other 06-25-2023 08:45-0500 Body height 175.26 cm Hannah Magallanes Other [facility] Other 06-25-2023 08:45-0500 Body mass index (BMI) [Ratio] 33.37 kg/m2 Hannah Magallanes Other [facility] Other 06-25-2023 08:45-0500 Body temperature 96.5 [degF] Hannah Magallanes Other [facility] Other 06-25-2023 08:45-0500 Body weight 102.51 kg Hannah Magallanes Other [facility] Other 06-25-2023 08:45-0500 Diastolic blood pressure 85 mm[Hg] Hannah Magallanes Other [facility] Other 06-25-2023 08:45-0500 Systolic blood pressure 149 mm[Hg] Hannah Magallanes Other [facility] Other 05-28-2023 10:45-0400 Body height 175.26 cm Hannah Magallanes Other [facility] Other 05-28-2023 10:45-0400 Body mass index (BMI) [Ratio] 33.52 kg/m2 Hannah Magallanes Other [facility] Other 05-28-2023 10:45-0400 Body weight 102.97 kg Hannah Magallanes Other [facility] Other 05-28-2023 10:45-0400 Diastolic blood pressure 82 mm[Hg] Hannah Magallanes Other [facility] Other 05-28-2023 10:45-0400 Systolic blood pressure 147 mm[Hg] Hannah Magallanes Other [facility] Other 2023 08:45-0400 Body height 175.26 cm Hannah Magallanes Other [facility] Other 2023 08:45-0400 Body mass index (BMI) [Ratio] 33.52 kg/m2 Hannah Magallanes Other [facility] Other 2023 08:45-0400 Body weight 102.97 kg Hannah Magallanes Other [facility] Other 2023 08:45-0400 Diastolic blood pressure 85 mm[Hg] Hannah Magallanes Other [facility] Other 2023 08:45-0400 Systolic blood pressure 156 mm[Hg] Hannah Magallanes Other [facility] Other 04-30-2023 09:45-0400 Body height 175.26 cm Hannah Magallanes Other [facility] Other 04-30-2023 09:45-0400 Body mass index (BMI) [Ratio] 34.32 kg/m2 Hannah Magallanes Other [facility] Other 04-30-2023 09:45-0400 Body temperature 96.2 [degF] Hannah Magallanes Other [facility] Other 04-30-2023 09:45-0400 Body weight 105.42 kg Hannah Magallanes Other [facility] Other 04-30-2023 09:45-0400 Diastolic blood pressure 78 mm[Hg] Hannah Magallanes Other [facility] Other 04-30-2023 09:45-0400 Respiratory rate 16 /min Hannah Magallanes Other [facility] Other 04-30-2023 09:45-0400 Systolic blood pressure 146 mm[Hg] Hannah Magallanes Other [facility] Other 02-20-2023 09:15-0400 Body height 175.26 cm Hannah Magallanes Other [facility] Other 02-20-2023 09:15-0400 Body mass index (BMI) [Ratio] 33.46 kg/m2 Hannah Magallanes Other [facility] Other 02-20-2023 09:15-0400 Body weight 102.79 kg Hannah Magallanes Other [facility] Other 02-20-2023 09:15-0400 Diastolic blood pressure 77 mm[Hg] Hannah Magallanes Other [facility] Other 02-20-2023 09:15-0400 Systolic blood pressure 131 mm[Hg] Hannah Magallanes Other [facility] Other 01-17-2023 08:45-0400 Body height 175.26 cm Hannah Magallanes Other [facility] Other 01-17-2023 08:45-0400 Body mass index (BMI) [Ratio] 33.37 kg/m2 Hannah Magallanes Other [facility] Other 01-17-2023 08:45-0400 Body weight 102.51 kg Hannah Magallanes Other [facility] Other 01-17-2023 08:45-0400 Diastolic blood pressure 79 mm[Hg] Hannah Magallanes Other [facility] Other 01-17-2023 08:45-0400 Systolic blood pressure 128 mm[Hg] Hannah Magallanes Other [facility] Other 11-23-2022 09:30-0400 Body height 175.26 cm Hannah Magallanes Other [facility] Other 11-23-2022 09:30-0400 Body mass index (BMI) [Ratio] 33.96 kg/m2 Hannah Magallanes Other [facility] Other 11-23-2022 09:30-0400 Body weight 104.33 kg Hannah Magallanes Other [facility] Other 11-23-2022 09:30-0400 Diastolic blood pressure 72 mm[Hg] Hannah Magallanes Other [facility] Other 11-23-2022 09:30-0400 Systolic blood pressure 122 mm[Hg] Hannah Magallanes Other [facility] Other 09-04-2022 11:30-0500 Body height 175.26 cm Hannah Magallanes Other [facility] Other 09-04-2022 11:30-0500 Body mass index (BMI) [Ratio] 33.52 kg/m2 Hannah Magallanes Other [facility] Other 09-04-2022 11:30-0500 Body weight 102.97 kg Hannah Magallanes Other [facility] Other 09-04-2022 11:30-0500 Diastolic blood pressure 80 mm[Hg] Hannah Magallanes Other [facility] Other 09-04-2022 11:30-0500 SaO2% (BldA) [Mass fraction] 95 % Hannah Magallanes Other [facility] Other 09-04-2022 11:30-0500 Systolic blood pressure 122 mm[Hg] Hannah Magallanes Other [facility] Other 02-06-2022 12:45-0400 Body height 175.26 cm Kesha Olexa Other [facility] Other 02-06-2022 12:45-0400 Body mass index (BMI) [Ratio] 31.01 kg/m2 Kesha Olexa Other [facility] Other 02-06-2022 12:45-0400 Body weight 95.26 kg Kesah Olexa Other [facility] Other 05-26-2021 13:15-0400 Body height 175.26 cm Harriet Ginty Other [facility] Other 05-26-2021 13:15-0400 Body mass index (BMI) [Ratio] 31.01 kg/m2 Harriet Ginty Other [facility] Other 05-26-2021 13:15-0400 Body temperature 98.3 [degF] Harriet Ginty Other [facility] Other 05-26-2021 13:15-0400 Body weight 95.26 kg Harriet Ginty Other [facility] Other 05-26-2021 13:15-0400 SaO2% (BldA) [Mass fraction] 96 % Harriet Ginty Other [facility] Other Encounters Encounter Date Encounter Type Care Provider Facility Start: 08-20-2023 End: 08-20-2023 ambulatory Hannah Magallanes Other [facility] Other Start: 08-20-2023 Telephone encounter Hannah Magallanes [facility] Start: 08-13-2023 End: 08-13-2023 ambulatory Hannah Magallanes Other [facility] Other Start: 08-13-2023 Office outpatient vi sit 25 minutes Hannah Magallanes [facility] Start: 08-13-2023 Telephone encounter Hannah Magallanes [facility] Start: 08-06-2023 End: 08-06-2023 ambulatory Hannah Magallanes Other [facility] Other Start: 08-06-2023 Telephone encounter Hannah Magallanes [facility] Start: 07-29-2023 End: 07-29-2023 ambulatory BARBIE Tellez POCOS Not Available Start: 07-22-2023 End: 07-22-2023 ambulatory Hannah Magallanes Other [facility] Other Start: 07-22-2023 Telephone encounter Hannah Magallanes [facility] Start: 07-19-2023 End: 07-19-2023 ambulatory Hannah Magallanes Other [facility] Other Start: 07-19-2023 Telephone encounter Hannah Magallanes [facility] Start: 07-18-2023 End: 07-18-2023 ambulatory Hannah Magallanes Other [facility] Other Start: 07-18-2023 Telephone encounter Hannah Magallanes [facility] Start: 07-02-2023 End: 07-02-2023 ambulatory Hannah Magallanes Other [facility] Other Start: 07-02-2023 Office outpatient vi sit 15 minutes Hannah Sona [facility] Start: 07-02-2023 Telephone encounter Hannah Magallanes [facility] Start: 06-25-2023 End: 06-25-2023 ambulatory Hannah Sona Other [facility] Other Start: 06-25-2023 Office outpatient vi sit 15 minutes Hannah Sona [facility] [facility] Start: 06-21-2023 End: 06-21-2023 ambulatory Hannah Sona Other [facility] [employer] Other Start: 06-21-2023 Encounter by [employer] hoda owen Hannahyeyo Magallanes [facility] Start: 06-20-2023 End: 06-20-2023 ambulatory Hannah Sona Other [facility] Other Start: 06-20-2023 Telephone encounter Hannah Sona [facility] Start: 06-17-2023 End: 06-17-2023 ambulatory Hannah Sona Other [facility] [employer] Other Start: 06-17-2023 Telephone encounter Hannah Sona [facility] Start: 06-10-2023 End: 06-10-2023 ambulatory Hannah Sona Other [facility] [employer] Other Start: 06-10-2023 Telephone encounter Hannah Sona [facility] Start: 06-03-2023 End: 06-03-2023 ambulatory Hannah Sona Other [facility] Other Start: 06-03-2023 Telephone encounter Hannah Sona [facility] Start: 05-30-2023 End: 05-31-2023 ambulatory Barbie Jesus [place] Start: 05-30-2023 End: 05-30-2023 Patient encounter procedure Barbie Jesus [facility] Start: 05-28-2023 End: 05-28-2023 ambulatory Hannah Magallanes Other [facility] [employer] Other Start: 05-28-2023 Office outpatient vi sit 15 minutes Hannah Magallanes [facility] Start: 2023 End: 2023 ambulatory Hannah Magallanes Other [facility] [employer] Other Start: 2023 Office outpatient vi sit 15 minutes Hannah Magallanes [facility] Start: 05-16-2023 End: 05-16-2023 ambulatory Hannah Magallanes Other [facility] [employer] Other Start: 05-16-2023 Telephone encounter Hannah Magallanes [facility] Start: 04-30-2023 End: 04-30-2023 ambulatory Hannah Magallanes Other [facility] [employer] Other Start: 04-30-2023 Office outpatient vi sit 15 minutes Hannah Magallanes [facility] Start: 04-26-2023 End: 04-26-2023 ambulatory Hannah Magallanes Other [facility] [employer] Other Start: 04-26-2023 Telephone encounter Hannah Magallanes [facility] Start: 04-23-2023 End: 04-23-2023 ambulatory Hannah Magallanes Other [facility] [employer] Other Start: 04-23-2023 Telephone encounter Hannah Magallanes [facility] Start: 03-25-2023 End: 03-25-2023 ambulatory Hannah Magallanes Other [facility] [employer] Other Start: 03-25-2023 Telephone encounter Hannah Magallanes [facility] Start: 03-06-2023 End: 03-06-2023 ambulatory Hannah Magallanes Other [facility] Other Start: 03-06-2023 Telephone encounter Hannah Magallanes [facility] Start: 02-20-2023 End: 02-20-2023 ambulatory Hannah Magallanes Other [facility] [employer] Other Start: 02-20-2023 Office outpatient vi sit 25 minutes Hannah Magallanes [facility] Start: 02-05-2023 End: 02-05-2023 ambulatory Hannah Sona Other [facility] Other Start: 02-05-2023 Telephone encounter Hannah Magallanes [facility] Start: 01-21-2023 End: 01-21-2023 ambulatory Hannah Magallanes Other [facility] Other Start: 01-21-2023 Telephone encounter Hannah Magallanes [employer] [facility] Start: 01-17-2023 End: 01-17-2023 ambulatory Hannah Magallanes Other [facility] Other Start: 01-17-2023 Office outpatient vi sit 15 minutes Hannah Magallanes [facility] Start: 12-24-2022 End: 12-24-2022 ambulatory Hannah Sona Other [facility] Other Start: 12-24-2022 Telephone encounter Hannah Sona [facility] Start: 12-03-2022 End: 12-03-2022 ambulatory Hannah Sona Other [facility] Other Start: 12-03-2022 Telephone encounter Hannah Magallanes [facility] Start: 11-27-2022 End: 11-27-2022 ambulatory Hannah Magallanes Other [facility] Other Start: 11-27-2022 Telephone encounter Hannah Magallanes [facility] Start: 11-26-2022 End: 11-26-2022 ambulatory Hannah Magallanes Other [facility] Other Start: 11-26-2022 Telephone encounter Hannah Magallanes [facility] Start: 11-24-2022 End: 11-25-[address] HANNAH MAGALLANES Facility:[facility] Start: 11-23-2022 End: 11-23-2022 ambulatory Hannah Magallanes Other [facility] Other Start: 11-23-2022 Office outpatient vi sit 15 minutes Hannah Magallanes [facility] Start: 11-05-2022 End: 11-05-2022 ambulatory Hannah Magallanes Other [facility] [employer] Other Start: 11-05-2022 Telephone encounter Hannah Magallanes [facility] Start: 10-03-2022 End: 10-03-2022 ambulatory Hannah Magallanes Other [facility] Other Start: 10-03-2022 Telephone encounter Hannah Magallanes [facility] Start: 09-04-2022 End: 09-04-2022 ambulatory Hannah Magallanes Other [facility] Other Start: 09-04-2022 Office outpatient vi sit 25 minutes Hannah Magallanes [facility] Start: 07-26-[address] HANNAH MAGALLANES Facil ity:[facility] Start: 07-19-2022 End: 07-20-[address] WILFREDO ENGLE Facility:[facility] Start: 06-07-2022 End: 06-07-[address] HANNAH MAGALLANES Facility:[facility] Start: 03-15-2022 ambulatory KESHA TRUJILLO Facility:[facility] Start: 02-06-2022 End: 02-06-2022 ambulatory Kesha Trujillo Other [facility] [employer] Other Start: 02-06-2022 Office outpatient vi sit 25 minutes Kesha Trujillo [facility] Start: 02-02-2022 End: 02-03-2022 ambulatory KESHA TRUJILLO Facility:[facility] Start: 12-28-2021 End: 12-28-[address] HANNAH MAGALLANES Facility:[facility] Start: 12-12-2021 End: 12-13-2021 ambulatory KESHA TRUJILLO [facility] Other Start: 12-12-2021 Office outpatient ne w 30 minutes Kesha Trujillo [facility] Start: 05-26-2021 Office outpatient vi sit 15 minutes Harriet Mo [facility] Procedures Date Procedure Procedure Detail Performing Clinician Start: 12-18-2018 Laboratory test resu lt abnormal Hannah Magallanes Other Start: 05-12-2018 Removal of suture Milagro Magallanes Other Start: 01-08-2017 Screening for malign ant neoplasm of prostate Hannah Magallanes Other Screening for malign ant neoplasm of colon Hannah Magallanes Other Screening for malign ant neoplasm of prostate Hannah Magallanes Other Immunizations Immunization Date Immunization Notes Care Provider Fa cility 05-17-2017 influenza virus vaccine, split virus (incl. purified surface antigen) Hannah Magallanes Other [facility] [employer] Other 06-28-2016 tetanus and diphther ia toxoids, adsorbed, preservative free, for adult use (5 Lf of tetanus toxoid and 2 Lf of diphtheria toxoid) Hannah Magallanes Other [facility] [employer] Other 05-25-2015 tetanus and diphther ia toxoids, adsorbed, preservative free, for adult use (5 Lf of tetanus toxoid and 2 Lf of diphtheria toxoid) Hannah Magallanes Other [facility] [employer] Other Payers Date Payer Category Payer Unknown [id number] 2.16.84 [id number] 1960 Unknown [id number] 2.16.84 [id number] 1960 Unknown [id number] 2.16.84 [id number] 1960 Unknown [id number] 2.16.84 [id number] 1960 Unknown [id number] 2.16.84 [id number] 1960 Unknown [id number] 2.16.84 [id number] 1960 Unknown [id number] 2.16.84 [id number] 1960 Unknown [id number] 2.16.84 [id number] 1960 Unknown [id number] 2.16.8 [id number] 1960 Unknown [id number] 1959 Medicaid [id number] 2. [id number] 1959 Medicare [id number] 2.1 [id number] Social History Date Type Detail Facility Sex Assigned At [facility] Tobacco smoking status No Smoking Status Entered [facility] Medical Equipment Procedure Code Equipment Code Equipment Original Text Equi pment Identifier Dates Accu-Chek FastClix Lancet - Clinical Notes 05-26-2021 to 08-13-2023 Note Date & Type Note Facility 08-13-2023 Evaluation note Encounter Date Diagnosis Assessment Notes Jul, Type 2 diabetes mellitus with hyperglycemia , without long-term current use of insulin (ICD-10 - E11.65) [facility] Other [id number] Evaluation note* Encounter Date Diagnosis Assessment Notes Treatment Notes Treatment Clinical Notes Jul, Rotator cuff dysfunction, right (ICD-10 - M67.911) Discussed that Dr. Jesus will manage his pain meds 2 weeks postoperatively. Pt is allergic to NSAIDS. EKG from June is attached. Eric is cleared for surgery next week. Jul, Type 2 diabetes mellitus with hyperglycemia, without long-term current use of insulin (ICD-10 - E11.65) Improved overall. Continue present med and dose. Jul, Disc degeneration, lumbar (ICD-10 - M51.36) Previously controlled on T3s. Neurology was treating him with regular injections as well. Plan is to return to T3s after shoulder pain has improved post-operatively. [facility] Other 12-04-2023 Evaluation note* Encounter Date Diagnosis Assessment Notes Treatment Notes Treatment Clinical Notes Jul, Type 2 diabetes mellitus with hyperglycemia, without long-term current use of insulin (ICD-10 - E11.65) [facility] Other 12-01-2023 Evaluation note* Encounter Date Diagnosis Assessment Notes Treatment Notes Treatment Clinical Notes Jul, Type 2 diabetes mellitus with hyperglycemia, without long-term current use of insulin (ICD-10 - E11.65) [facility] Other 11-30-2023 Evaluation note* Encounter Date Diagnosis Assessment Notes Treatment Notes Treatment Clinical Notes Jun, Labral tear of shoulder, right, subsequent encounter (ICD-10 - S43.431D) [facility] Other 11-14-2023 Evaluation note* Encounter Date Diagnosis Assessment Notes Treatment Notes Treatment Clinical Notes Jun, Muscle cramps (ICD-10 - R25.2) Agrees to labs and further w/u to r/o cardiac or inflammatory causes. Jun, Type 2 diabetes mellitus with hyperglycemia, without long-term current use of insulin (ICD-10 - E11.65) Healthy diet and exercise encouraged. Weight loss helps to reduce blood sugars and A1C. Wear supportive shoes, avoid open toed shoes. Check feet daily. Jun, Left-sided chest pain (ICD-10 - R07.9) r/o cardiac cause [facility] Other 11-07-2023 Evaluation note* Encounter Date Diagnosis Assessment Notes Treatment Notes Treatment Clinical Notes Jun, COPD with exacerbation (ICD-10 - J44.1) Patient has cough with wheezing. Agrees to antibiotics and steroids finish prescribed amount. Jun, Labral tear of shoulder, right, subsequent encounter (ICD-10 - S43.431D) Scheduled for surgery with [facility] in August. Will refill medication as requested. Reviewed [place]AR[place] report. Patient understands this is a controlled substance. Every effort will be made after surgery to decrease dose and possibly discontinue medication. [facility] Other 11-02-2023 Evaluation note* Encounter Date Diagnosis Assessment Notes Treatment Notes Treatment Clinical Notes Jun, Acute pain of right shoulder (ICD-10 - M25.511) [facility] Other 10-30-2023 Evaluation note* Encounter Date Diagnosis Assessment Notes Treatment Notes Treatment Clinical Notes May, Acute pain of right shoulder (ICD-10 - M25.511) [facility] Other 10-23-2023 Evaluation note* Encounter Date Diagnosis Assessment Notes Treatment Notes Treatment Clinical Notes May, Acute pain of right shoulder (ICD-10 - M25.511) [facility] Other 10-16-2023 Evaluation note* Encounter Date Diagnosis Assessment Notes Treatment Notes Treatment Clinical Notes May, Acute pain of right shoulder (ICD-10 - M25.511) [facility] Other 10-10-2023 Evaluation note* Encounter Date Diagnosis Assessment Notes Treatment Notes Treatment Clinical Notes May, Acute pain of right shoulder (ICD-10 - M25.511) MRI and surgery planning pending. Pt understands this is a controlled substance and to call in 1 week w update on treatment plan. May, Bronchitis (ICD-10 - J40) Finish antibiotic, rest, hydrate Steroids for wheezing. [facility] Other 10-04-2023 Evaluation note* Encounter Date Diagnosis Assessment Notes Treatment Notes Treatment Clinical Notes May, Acute pain of right shoulder (ICD-10 - M25.511) Reviewed OARRS and discussed short term plan of increase in pain medication. He is due for a refill of the T3s presently. Stop them, replace w norco. Pt understands weekly prescription and will need to d/c after anticipated surgery. [facility] Other 09-12-2023 Evaluation note* Encounter Date Diagnosis Assessment Notes Treatment Notes Treatment Clinical Notes Apr, Moderate persistent asthmatic bronchitis with acute exacerbation (ICD-10 - J45.41) Bronchitis suspected due to wheezes, chest tightness, cough and/or impaired air movement. Medication prescribed. Avoid extreme heat and cold as this may exacerbate inflammation of airways. If wheezing, chest tightness and/or SOB occurs, go to ER. If fevers persist or worsening symptoms occur, contact PCP immediately. Apr, Other chronic pain (ICD-10 - G89.29) Apr, Pain in right shoulder (ICD-10 - M25.511) Pt states I can share notes w Dr. Jesus from our office and the ER visit on 04/26 [facility] Other 07-05-2023 Evaluation note* Encounter Date Diagnosis Assessment Notes Treatment Notes Treatment Clinical Notes Feb, Epigastric abdominal pain (ICD-10 - R10.13) Referral Dr. Martinez Feb, Other elevated white blood cell (WBC) count (ICD-10 - D72.828) Recheck WBC/CBC in March or Feb, Disc degeneration, lumbar (ICD-10 - M51.36) Pt agrees to start cymbalta. He sees neurology for injections. They did not have any rx recommendations at his last appt which was recently. Notes R LE numbness related to back pain. Reviewed OARRS report. States he will continue his T3s, but hopefully have better effects from the cymbalta and will need less prn pain med. [facility] Other 06-01-2023 Evaluation note* Encounter Date Diagnosis Assessment Notes Treatment Notes Treatment Clinical Notes Jan, RUQ pain (ICD-10 - R10.11) Discussed differential. continues to decline c-scope. start w labs and GBUS. Jan, Other chronic pain (ICD-10 - G89.29) Jan, Pain in right shoulder (ICD-10 - M25.511) Pt requests referral to Dr. Jesus - he hopes for intrarticular injections. Jan, Pain in left shoulder (ICD-10 - M25.512) as above. [facility] Other 04-17-2023 Evaluation note* Encounter Date Diagnosis Assessment Notes Treatment Notes Treatment Clinical Notes Nov, Bronchitis (ICD-10 - J40) [facility] Other 04-11-2023 Evaluation note* Encounter Date Diagnosis Assessment Notes Treatment Notes Treatment Clinical Notes Nov, Disc degeneration, lumbar (ICD-10 - M51.36) Nov, Lumbar radicular pain (ICD-10 - M54.16) [facility] Other 04-07-2023 Evaluation note* Encounter Date Diagnosis Assessment Notes Treatment Notes Treatment Clinical Notes Nov, Bronchitis (ICD-10 - J40) Bronchitis: Care Instructions material was printed Pt is acutely sick with acute complicated bronchitis Recommend: Antibiotics: Azithromycin 50 mg po daily for 5 days Cough: Benzonatate Bronchodilator: Albuterol with prednisone taper expectorent: Mucinex Nov, Smoker unmotivated to quit (ICD-10 - F17.200) Nov, Current smoker (ICD-10 - F17.200) Pt is strongly advised to quit smoking. Pt verbalizes understanding and agreement. [facility] Other 02-15-2023 Evaluation note* Encounter Date Diagnosis Assessment Notes Treatment Notes Treatment Clinical Notes Sep, Lumbar radicular pain (ICD-10 - M54.16) [facility] Other 01-17-2023 Evaluation note* Encounter Date Diagnosis Assessment Notes Treatment Notes Treatment Clinical Notes Aug, Bronchitis (ICD-10 - J40) Bronchitis: Care Instructions material was printed Pt is acutely sick with acute complicated bronchitis Recommend: Antibiotics with prednisone taper expectorent: Mucinex Aug, Lumbar radicular pain (ICD-10 - M54.16) Pain/controlled substance contract discussed with patient today. Patient is appropriate for chronic prescribing of controlled substances for management of [ ]. Made patient aware that drug testing is possible at any time. It is necessary for patient to be free of substance abuse. Patient verbalizes understanding of no tolerance policy in regards to sharing medication, abusing medication, hoarding medication, legality involving impaired driving of a motor vehicle, and strict follow-up policy. Patient also verbalizes understanding that OARRS report will be run every time a controlled substances prescribed. Patient signed both contracts and these can be found in the patient document portion of the EMR. Aug, Positive colorectal cancer screening using Cologuard test (ICD-10 - R19.5) Lengthy discussion that there is no alternative to colonoscopy. Assured of the safety of the test itself. Patient chose to see Dr. Martinez. He will continue considering this and I instructed him to call their office when he is ready for the test to be completed I also gave him a copy of the Cologuard results that go through all the percentage chances because he had a lot of questions about the likelihood of cancer that is outlined on the test result page. [facility] Other 10-20-2022 NoteIndication: Calculus in kidney. Comparison: 11/29/2020 exam. Procedure: Axial images were made from the diaphragms through the symphysis pubis. No oral or IV contrast was given. Dose reduction techniques were achieved by using automated exposure control and/or adjustment of mA and/or kV according to patient size and/or use of iterative reconstruction technique. Findings: Liver/Biliary System: No liver masses. No intra or extrahepatic biliary dilatation. No gallstones or cholecystitis. Pancreas/Spleen: No pancreatic lesions are seen. No evidence of pancreatitis. Pancreatic duct is not dilated. No splenomegaly. Kidneys/Adrenals: No renal or ureteral stones are seen. No hydronephrosis or hydroureter. Stable 1 cm right renal cyst. No adrenal nodules. Aorta/Vessels: No evidence of aortic aneurysm. Evaluation of vessels is limited due to lack of IV contrast. Bowel/Fluid/Nodes: No bowel dilatation. No bowel wall thickening. Colonic diverticulosis with no evidence of diverticulitis. Normal appendix. No ascites or fluid collections. No adenopathy. Lung bases: Clear. Other findings: No aggressive osseous lesions are seen. Pelvis: No pelvic masses or adenopathy. No free fluid seen in the pelvis. No bladder stones. Stable couple of bladder diverticula. Prostate and seminal vesicles grossly unremarkable. Other Findings: No aggressive osseous lesions are seen. Impression: 1. No evidence of acute abdominal or pelvic process. 2. No renal, ureteral or bladder stones. No hydronephrosis or hydroureter bilaterally. 3. Colonic diverticulosis with no evidence of diverticulitis. Stable couple of bladder diverticula. Stable 1 cm right renal cyst. Electronically authenticated by: JOHN PINTO Date: 2022-06-07 20:07[facility]06-21-2022 Evaluation note* Encounter Date Diagnosis Assessment Notes Treatment Notes Treatment Clinical Notes Jan, Primary osteoarthritis of left shoulder (ICD-10 - M19.012) Jan, Acute pain of left shoulder (ICD-10 - M25.512) Jan, Tear of left supraspinatus tendon (ICD-10 - M75.102) MRI reviewed with patient as rotator cuff tear. We will plan on arthroscopic rotator cuff repair. The patient has stated that they do not want to live in this condition any longer and would like to proceed with surgery. I feel that this is a reasonable option at this point and we may be able to improve function and decrease pain. We have discussed the process and procedure in detail including not eating or drinking 8 hrs prior to surgery, the need for general anesthesia and associated respiratory, cardiac, and patient position complications (such as nerve traction and compression). The benefit of regional block anesthesia and complications of arm numbness and neck pain. We discussed that pain and stifffness can be expected after surgery for months. The complications of infection, hardware pullout, cuff repair failure, snf pain and stiffness are well known problems that can require repeat surgeries. Patient is fully aware that this shoulder may never be the same. We discussed that our team will do everything we can to help achieve the best outcome. Jan, Current smoker (ICD-10 - F17.200) Stressed to patient the importance of smoking cessation to decrease potential surgical complications including failure of repair, infection and wound healing delays. [facility] Other 04-26-2022 NotePROCEDURE: XR SHOULDER LT 2V or > COMPARISON: None. HISTORY: Pain of left shoulder joint FINDINGS: BONES:No acute fracture or dislocation. 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 No visible soft tissue swelling. EFFUSION:None visible. OTHER: Negative. IMPRESSION: Mild osteoarthritis Electronically authenticated by: BARBIE MEMBRENO Date: 2021-12-12 [facility]:25[facility] Encounter Date Diagnosis Assessment Notes Treatment Notes Treatment Clinical Notes Nov, Primary osteoarthritis of left shoulder (ICD-10 - M19.012) Discussed with patient he also has some arthritis. We discussed the importance of maintaining shoulder motion and demonstrated motion exercise in flexion, internal and external rotation. We discussed the use of non-steroidal anti-inflammatory medication. Discussed limiting strenuous use of the shoulder which will aggravate symptoms. Discussed that occasional intra-articular cortisone injection may be helpful. Discussed surgical treatment options including arthroscopy and arthroplasty replacement options. Nov, Complete tear of left rotator cuff, unspecified whether traumatic (ICD-10 - M75.122) This appears to be pain secondary to rotator cuff tear. We discussed and demonstrated gentle motion exercise and rotator cuff strengthening exercise. Discussed the use of non-steroidal anti-inflammatory medication. At this point the patient will try to live with the condition, understanding a rotator cuff tear can worsen and enlarge with time A 1/1cc marcaine / kenalog cortisone injection was performed into the subacromial space under sterile technique. Patient tolerated the injection well with no adverse reaction. Nov, Tendinopathy of left shoulder (ICD-10 - M67.912) Nov, Acute pain of left shoulder (ICD-10 - M25.512) [facility] Other 10-08-2021 Evaluation note* Encounter Date Diagnosis Assessment Notes Treatment Notes Treatment Clinical Notes May, Bronchitis (ICD-10 - J40) Discussed dx with patient in detail.Advised patient to take medications as prescribed, finish entire course, reviewed side effects of steroid, take with food and plenty of water. Supportive care as directed, push fluids and rest, may use tylenol as needed for fever/discomfort, cool mist humidifier. May use capron as needed for cough. Advised patient that [place] contains antihistamine and cough suppressant and to be cautious using other OTC cold medications. Patient to follow up with PCP if symptoms do not improve. Immediate eval if SOB, difficulty breathing, chest pain, dizziness, or other concerning symptoms. 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 Surgical History carpal tunnel release 2017 Surgical History tonsillectomy Hospitalization History 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 Hospitalization History pneumonia [facility] Other Hospital Discharge instructions No data available for this section [facility] No data available for this section [facility] Summary Purpose Family History No Family History Records FoundNo Family History Records Found No data available for this section No Family History Records FoundNo Family History Records Found Advance Directives No Advanced Directives Records FoundNo Advanced Directives Records FoundNo Advanced Directives Records FoundNo Advanced Directives Records Found Reason for Referral Reason *FU 02/27 Epigastr ic pain, gall bladder polyp. Agrees to treatment, except colonoscopy. Last OV and today, labs and US scanned into chart. thanks Diagnosis 1 Epigastric abdominal pain (R10.13) Referral Organization [facility] Referring Provider First Name Hannah Referring Provider Last Name Sona Referring Provider Specialty [facility] Referred Organization [facility] Referred Provider Sai Martinez Referred Address ,[place], [place],[address] Referred Provider Specialty Surgery Referral Priority Routine General Notes Es Camilo 11:38:02 AM >received today, attachments made, notes locked, referral faxed Reason 01/28/23 Access Or tho - B shoulder pain L>R - hopes for injections. Diagnosis 1 Pain in right should er (M25.511) Referral Organization [facility] Referring Provider First Name Hannah Referring Provider Last Name Sona Referring Provider Specialty [facility] Referred Organization [facility] Referred Provider Barbie Jesus Referred Address ,[place], [place],[address] Referred Provider Specialty Orthopaedic Surgery Referral Priority Routine Referral Appointment Date 2023-01-28 General Notes Es Camilo 03:00:30 PM >received today, notes note locked, will fax when done Es Camilo 01/21/2023 10:35:11 AM >sent TE to have notes locked Es Camilo 01/22/2023 09:35:27 AM >notes locked, and faxed Es Camilo 01/29/2023 10:49:42 AM >faxed first attempt letter Es Camilo 02/05/2023 10:30:41 AM >faxed second attempt letter Es Camilo 02/12/2023 11:00:18 AM >faxed third attempt letter Es Camilo 02/13/2023 12:11:31 PM >received fax with appt date, faxed first letter for notes Es Camilo 02/15/2023 04:23:26 PM >notes received, and sent for review. closing out referral Reason [facility] - B shoulder pain L>R - hopes for injections. Diagnosis 1 Pain in right should er (M25.511) Referral Organization [facility] Referring Provider First Name Hannah Referring Provider Last Name Magallanes Referring Provider Specialty [facility] Referred Organization [facility] Referred Provider Barbie Jesus Referred Address ,[place], [place],[address] Referred Provider Specialty Orthopaedic Surgery Referral Priority Routine General Notes Es Camilo 03:00:30 PM >received today, notes note locked, will fax when done Es Camilo 01/21/2023 10:35:11 AM >sent TE to have notes locked Additional Source Comments REASON FOR VISIT (unrecogniz ed section and content) MRI Results Left Shoulder#14 BLACK DODGE TRUCK COUGH, SOB, HX OF COPDLeft Shoulder PainLab Results Discussionprescription refillprescriptionPossible BronchitiscxrrefillREFILLREFILLTirednessNo InformationmessageTirednessmedication discussion - test resultslabsrefillrefillMedication ChangeSinuses-Coldrefillrefillbilateral shoulder painLeft EarrefillRefillRefillRe-Send to Med ShoppeNew Refill Requesthead coldlabschest muscle painrefillNo InformationNo Informationrefillsurgery - pain management planpreop clearencemedication (unrecognized sect ion and content) No Status Records FoundNo Status Records FoundNo Status Records FoundNo Status Records Found INFORMATION SOURCE (unrecogn ized section and content) DATE CREATED AUTHOR 02/10/2022 [facility] DATE CREATED AUTHOR AUTHOR'S ORGANIZ ATION 12/04/2022 [facility] DATE CREATED AUTHOR AUTHOR'S ORGANIZ ATION 06/01/2023 [facility] DATE CREATED AUTHOR AUTHOR'S ORGANIZ ATION 07/30/2023 [facility] Patient Care team informmatilde n (unrecognized section and content) Personnel Name: HANNAH MAGALLANES MD Address: Address: [address] [place] [address] FOR RECORDS PERTAINING TO PATIENTS WHO ARE OR HAVE BEEN ENROLLED IN A CHEMICAL DEPENDENCY/SUBSTANCEABUSE PROGRAM, SOME INFORMATION MAY BE OMITTED. This clinical summary was aggregated from multiple sources. Caution should be exercised in using it in the provision of clinical care. This summary normalizes information from multiple sources, and as a consequence, information in this document may materially change the coding, format and clinical context of patient data. In addition, data may be omitted in some cases. CLINICAL DECISIONS SHOULD BE BASED ON THE PRIMARY CLINICAL RECORDS. [facility] [employer] provides no warranty or guarantee of the accuracy or completeness of information in this document.
--- NOTE | 2023-08-23 22:07 | ECG_ITS ---
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
--- NOTE | 2023-08-23 22:07 | ED.EXTPRO1 ---
HPI - Extremity Problem General Chief complaint: Extremity Problem, Nontraumatic Stated complaint: shoulder surgery yesterday [facility], severe pain, feve Time Seen by Provider: 08/23/23 22:03 Source: patient Mode of arrival: walk-in Limitations: no limitations History of Present Illness HPI Narrative: 63-year-old male presents for pain in the right shoulder. Yesterday morning he had right rotator cuff surgery. He had a nerve block but wore off about 3:00 AM and now his pain is severe despite taking Percocet. No injury. No numbness or weakness in his fingers. The pain is continuous. Related Data Home Medications Medication Instructions Recorded Confirmed atorvastatin 20 mg tablet mg 08/23/23 glipizide 5 mg-metformin 500 mg tab 08/23/23 tablet oxycodone-acetaminophen 5 mg-325 tab 08/23/23 mg tablet Previous Rx's Medication Instructions Recorded hydrocodone 5 mg-acetaminophen 325 1 tab PO Q6H PRN pain #14 tabs 04/25/23 mg tablet Allergies Allergy/AdvReac Type Severity Reaction Status Date / Time ibuprofen [From Motrin] AdvReac Mild Verified 08/23/23 21:57 IV dye Allergy Uncoded 08/23/23 21:57 Review of Systems ROS Narrative A ten point review of systems is negative except as noted above. PFSH PFSH Social History Smoking status: Current every day smoker Exam Narrative Exam Narrative: Nurses note and vital signs reviewed and patient is not hypoxic. General: The patient appears well and in no apparent distress. Patient is resting comfortably on cart. Skin: Warm, diaphoretic, no pallor noted. There is no rash noted. Head: Normocephalic, atraumatic Eye: Normal conjunctiva, no drainage Ears, Nose, Mouth, and Throat: oral mucosa is moist. Nares patent. Cardiovascular: Regular Rate and Rhythm Respiratory: Patient is in no distress, no accessory muscle use, lungs are clear to auscultation, no wheezing, rales or rhonchi Back: non-tender GI: nontender Musculoskeletal: right arm is in post surgical swelling. Capillary refill is brisk in his fingerrs which have good range of motion Neurological: A&O, normal speech Psychiatric: Cooperative Constitutional Vital Signs, click to edit/add: Last Vital Signs Temp 99.8 F 08/23/23 21:52 Pulse 72 08/24/23 02:30 Resp 13 08/24/23 02:30 BP 145/87 H 08/24/23 02:30 Pulse Ox 93 L 08/24/23 02:20 Course Vital Signs Vital signs: Vital Signs Temperature 99.8 F 08/23/23 21:52 Pulse Rate 82 08/23/23 21:52 Respiratory Rate 18 08/23/23 21:52 Blood Pressure 182/98 H 08/23/23 21:52 Pulse Oximetry 97 08/23/23 21:52 Temperature 99.8 F 08/23/23 21:52 Pulse Rate 72 08/24/23 02:30 Respiratory Rate 13 08/24/23 02:30 Blood Pressure 145/87 H 08/24/23 02:30 Pulse Oximetry 93 L 08/24/23 02:20 MDM - Extremity (Nontraumatic) MDM Narrative Medical decision making narrative: The patient has been given several doses of IV pain medication. I have spoken to Dr. Kuhn, hospitalist at [facility]. He is willing to accept the patient but they do not have any beds available and the patient will be held here until morning when a bed is likely to be available. Differential Diagnosis Differential diagnosis: Likely other (postoperative pain) Discharge Plan Discharge Chief Complaint: Extremity Problem, Nontraumatic Clinical Impression: Postoperative pain, acute, shoulder Patient Disposition: [facility] Time of Disposition Decision: 02:36 Discharge location: [facility] Condition: Good Mode of Transportation: EMS
[2023-08-23] MEDS: MORPHINE SULFATE 4 MG/ML VIAL IV (22:17)
[2023-08-23] MEDS: HYDROMORPHONE HCL 1 MG/ML CARTRIDGE IV (22:55)
[2023-08-24] VITALS (53 sets, daily range): BP systolic 127–161; BP diastolic 70–90; PULSE 63–91; RESP 10–26; TEMP 36.6; O2SAT 91–97
[2023-08-24] MEDS: HYDROMORPHONE HCL 1 MG/ML CARTRIDGE IV ×2 (00:34→02:14)
[2023-08-24] MEDS: HYDROMORPHONE HCL 0.5 MG/0.5 ML SYRINGE IV ×3 (04:11→08:36)
[2023-08-24] MEDS: HYDROMORPHONE HCL 1 MG/ML CARTRIDGE 2 MG IV (10:32)
[2023-08-24] MEDS: GABAPENTIN 300 MG CAPSULE PO (10:32)
== END 2023-08-24 10:59 | disposition home or self-care (01) ==
PROVIDERS: Emergency Provider Emergency Medicine Emergency Medical Services; PCP Family Medicine
DX: G89.18 Other acute postprocedural pain (principal); M25.511 Pain in right shoulder; Z79.899 Other long term (current) drug therapy; F17.210 Nicotine dependence, cigarettes, uncomplicated
CPT/HCPCS: 93005; 96374; 96375; 96376; 99284; J1170; J2270

== ENCOUNTER 2023-08-30 22:23 | Emergency (ER) | payer MEDICARE, MEDICAID, SELFPAY ==
--- OUTSIDE RECORDS SUMMARY | 2023-08-30 22:32 | XMS_ITS | CCD ---
Author Name Unknown Address [address] [place] [address] Organization [facility] Care Team Providers Care Hoop Maker Helper Machine Name Role Phone Kesha Trujillo Unavailable Harriet Mo Unavailable Hannah Magallanes Unavailable SONA, DR HANNAH Jovel Admitting Unavailable MAGALLANES, DR HANNAH Jovel Attending Unavailable MAGALLANES, DR HANNAH Jovel Primary Care Unavailable MAGALLANES, DR HANNAH Jovel Consulting Unavailable TAVERASRUBI Consulting Unavailable OLEXA, KESHA Admitting Unavailable OLEXA, KESHA Attending Unavailable MAGALLANES, DR HANNAH Jovel Primary Care Unavailable OMER, DR BARBIE Goldberg Consulting Unavailable OLEXA, KESHA [...] DR YEISON Drummond Consulting Unavailable MAGALLANES, DR HANNAH Jovel Admitting Unavailable MAGALLANES, DR [...] Consulting Unavailable HANNAH MAGALLANES Primary Care Physician [phone] Edin, Barbie Tellez Referring Unavailable Pocos, Barbie Tellez Attending Unavailable Pocos, Barbie Tellez Admitting Unavailable POCOS, BARBIE Tellez Attending Unavailable Allergies Allergy Classification Reported Allergen(s) Allergy Type Date of Onset Reaction(s) Facility (20 sources) Ibuprofen Drug Allergy hives [employer] [facility] [employer] Other (20 sources) olodaterol / tiotropium Drug Allergy shortness of breath [facility] [employer] Other (20 sources) CT Scan dye Propensity to adverse reactions [facility] [employer] Other (2 sources) Ibuprofen Drug Allergy 08-19-18 80 [facility] Repository (2 sources) Iodine (And Iodine Containting Drugs) Drug allergy (disorder) 09-07-19 16 [facility] Repository (1 source) NSAIDs Drug allergy (disorder) [facility] Repository (20 sources) fentaNYL Drug Allergy Unknown [facility] [employer] Other (3 sources) Ibuprofen Drug Allergy 01-15-20 15 Unknown [employer] Other (20 sources) Ofloxacin Drug Allergy Unknown [employer] Other (3 sources) zafirlukast Drug Allergy 01-15-20 15 Unknown [employer] Other (20 sources) Zafirlukast *ANTIASTHMATIC AND BRONCHODILATOR AGEN Propensity to adverse reactions Unknown [employer] Other (20 sources) Ibuprofen & Diet Manage Prod *ANALGESICS - ANTI-IN Propensity to adverse reactions Unknown [employer] Other (3 sources) Allergies Reconciled Propensity to adverse reactions Unknown [employer] Other (20 sources) Iodinated contrast media (substance) Drug allergy Unknown [employer] Other (3 sources) patient allergy list reviewed by nurse or physicia Propensity to adverse reactions 10-05-19 16 Comment:Done [employer] Other Medications Current Medications Medication Drug Class(es) [...] 6 hrs for 7 days May, Active [id number] actuat albuterol 0.09 mg/actuat metered dose [...] Start: 11-23-2022 take 2 tablets by mo [facility] every twenty-four hours predniSONE 20 MG 2 [...] 30 mg oral tablet (5 sources) Uncompetitive F-bszxel-M-aspartate Receptor Antagonist, Sigma-1 Agonist Start: 05-26-2021 take 1 tablet by mouth every eight hours [place] DMT 30-30 MG 1 tablet Orally every [...] 10-05-2015 [employer] Other aftercare (1 source) Other exterminator helper (current) drug therapy; Translations: [OTH JAIL CURRENT DRUG THERAPY] Onset: 12-29-2021 [employer] Other [...] Reference Range Facility Yajaira 07-02-2023 Magnesium [Mass/Vol] 2.3763049 mg/dL Normal 1.8-2.4 mg/dL [employer] Other Magnesium see note [employer] Other MRI Shoulder w/o Contrast Ilya holt 05-31-2023 MRI Shoulder w/o Contrast Right Exam Date/Time: 05/30/2023 14:25 EDT Reason for Exam: S46.890G Report IMPRESSION: Full-thickness rotator cuff tearing involving [...] TAMARA Technologist: STELLA Technical Comments None Normal [facility] Consent for Treatmenton 05-19 Consent for Treatment [id number] 0TIFF Normal [facility] RAD - MRI Screening Formon 1 RAD - MRI Screening Form [id number] TIFF Normal [facility] Physician Orderon 05-09-2023 Physician Order [id number]. 00CD:127 Normal [facility] XR CHEST 2 Von 11-24-2022 XR [...] by: RUBI TAVERAS Date: 2022-11-24 17:17 Normal [facility] CT LUNG CANCER SCREENINGon 09-20-2021 CT LUNG [...] YEISON NAVAS Date: 2022-07-20 07:18 Normal [facility] CBC AUTO DIFFon 06-07-2022 BASO # 0.1 103/ul Normal 0.0-0.1 [facility] Comment on above: Performed By: #### C BC #### [facility] [address] [address] [address] Eran Chacon Basophils/100 WBC (Bld) 0.6 % Normal 0.2-2.0 [facility] Comment on above: Performed By: #### C BC #### [facility] [address] [address] [address] Eran Chacon EO # 0.3 103/ul Normal 0.0-0.7 [facility] Comment on above: Performed By: #### C BC #### [facility] [address] [address] [address] Eran Chacon Eosinophils/100 WBC (Bld) 3.3 % Normal 0.9-7.0 [facility] Comment on above: Performed By: #### C BC #### [facility] [address] [address] [address] Eran Chacon Erythrocyte distribution width (RBC) [Ratio] 12.9 % Normal 11.0-15.0 [facility] Comment on above: Performed By: #### C BC #### [facility] [address] [address] [address] Eran Chacon Hematocrit (Bld) [Volume fraction] 47.7 % Normal 42.0-54.0 [facility] Comment on above: Performed By: #### C BC #### [facility] [address] [address] [address] Eran Chacon Hemoglobin (Bld) [Mass/Vol] 15.9 g/dL Normal 14.0-18.0 [facility] Comment on above: Performed By: #### C BC #### [facility] [address] [place] [address] Dr. Eran Chacon IG # 0.02 10e3/ul Normal 0.00-0.03 [facility] Comment on above: Performed By: #### C BC #### [facility] [address] [place] [address] Dr. Eran Chacon IG % 0.2 % Normal 0.0-0.5 [facility] Comment on above: Performed By: #### C BC #### [facility] [address] [place] [address] Dr. Eran Chacon LYMPH # 3.4 103/ul Normal 1.2-3.8 [facility] Comment on above: Performed By: #### C BC #### [facility] [address] [place] [address] Dr. Eran Chacon Lymphocytes/100 WBC (Bld) 34.5 % Normal 20.5-60.0 [facility] Comment on above: Performed By: #### C BC #### [facility] [address] [place] [address] Dr. Eran Chacon MANUAL DIFF REQ NO Normal [facility] Comment on above: Performed By: #### C BC #### [facility] [address] [place] [address] Dr. Eran Chacon MCH (RBC) [Entitic mass] 29.6 pg Normal 25.9-34.0 [facility] Comment on above: Performed By: #### C BC #### [facility] [address] [place] [address] Dr. Eran Chacon MCHC (RBC) [Mass/Vol] 33.3 g/dL Normal 29.9-35.2 [facility] Comment on above: Performed By: #### C BC #### [facility] [address] [place] [address] Dr. Eran Chacon MCV (RBC) [Entitic vol] 88.8 fL Normal 80.0-94.0 [facility] Comment on above: Performed By: #### C BC #### [facility] [address] [place], [place] [address] Dr. Eran Chacon MONO # 0.9 103/ul Critically high 0.3-0.8 [facility] Comment on above: Performed By: #### C BC #### [facility] [address] [place] [address] Dr. Eran Chacon Monocytes/100 WBC (Bld) 9.3 % Normal 1.7-12.0 [facility] Comment on above: Performed By: #### C BC #### [facility] [address] [place] [address] Dr. Eran Chacon NEUT # 5.2 103/ul Normal 1.4-6.5 [facility] Comment on above: Performed By: #### C BC #### [facility] [address] [place] [address] Dr. Eran Chacon Neutrophils/100 WBC (Bld) 52.1 % Normal 43.0-75.0 [facility] Comment on above: Performed By: #### C BC #### [facility] [address] [place] [address] Dr. Eran Chacon Platelet mean volume (Bld) [Entitic vol] 8.8 fL Critically low 9.5-13.5 [facility] Comment on above: Performed By: #### C BC #### [facility] [address] [place] [address] Dr. Eran Chacon PLT 287 103/ul Normal 150-450 [facility] Comment on above: Performed By: #### C BC #### [facility] [address] [place] [address] Dr. Eran Chacon RBC 5.37 106/ul Normal 4.70-6.10 [facility] Comment on above: Performed By: #### C BC #### [facility] [address] [place] [address] Dr. Eran Chacon WBC 9.9 103/ul Normal 4.0-11.0 [facility] Comment on above: Performed By: #### C BC #### [facility] [address] [place] [address] Dr. Eran Chacon ER URINE PROFILEon 2 Bilirubin Ql (U) Negative Normal NEGATIVE [facility] Comment on above: Performed By: #### Med SHER UMICRO #### [facility] [address] [place] [address] Dr. Eran Chacon Clarity (U) CLEAR Normal CLEAR [facility] Comment on above: Performed By: #### Med SHER UMICRO #### [facility] [address] [address] [address] Eran Chacon Color (U) YELLOW Normal YELLOW [facility] Comment on above: Performed By: #### Med SHER UMICRO #### [facility] [address] [place] [address] Dr. Eran GATES A micrscopic examination will be performed if indicated. Normal [facility] Comment on above: Performed By: #### Med SHER UMICRO #### [facility] [address] [place] [address] Dr. Erna Chacon Glucose Ql (U) 500 mg/dl Abnormal NEGATIVE [facility] Comment on above: Performed By: #### Med SHER UMICRO #### [facility] [address] [place] [address] Dr. Eran Chacon Hemoglobin Ql (U) TRACE-INTACT Abnormal NEGATIVE [facility] Comment on above: Performed By: #### Med SHER UMICRO #### [facility] [address] [place] [address] Dr. Eran Chacon Ketones Ql (U) Negative Normal NEGATIVE [facility] Comment on above: Performed By: #### Med SHER UMICRO #### [facility] [address] [place] [address] Dr. Eran Chacon LEUKOCYTES Negative Normal NEGATIVE [facility] Comment on above: Performed By: #### Med SHER UMICRO #### [facility] [address] [place] [address] Dr. Eran Chacon Nitrite Ql (U) Negative Normal NEGATIVE [facility] Comment on above: Performed By: #### Med SHER UMICRO #### [facility] [address] [address] [address] Eran Chacon pH (U) 6.0 [pH] Normal 5-9 [facility] Comment on above: Performed By: #### HANNA BATES #### [facility] [address] [place] [address] Dr. Eran Chacon SPEC GRAVITY 1.025 Normal 1.005-<=1.025 [facility] Comment on above: Performed By: #### HANNA BATES #### [facility] [address] [place] [address] Dr. Eran Chacon UA PROTEIN Negative Normal NEGATIVE/ TRACE [facility] Comment on above: Performed By: #### HANNA BATES #### [facility] [address] [place] [address] Dr. Eran Chacon UR MICRO IND INDICATED Normal [facility] Comment on above: Performed By: #### HANNA BATES #### [facility] [address] [place] [address] Dr. Eran Chacon Urobilinogen Qn (U) 0.2 {Aureliano'U}/dL Normal 0.2 - 1.0 [facility] Comment on above: Performed By: #### HANNA BATES #### [facility] [address] [place] [address] Dr. Eran Chacon PROF 14(COMP METB)on 022 Albumin [Mass/Vol] 4.0 g/dL Normal 3.4-5.0 [facility] Comment on above: Performed By: #### C MP #### [facility] [address] [place] [address] Dr. Eran Chacon Albumin/Globulin [Mass ratio] 1.2 {ratio} Normal [facility] Comment on above: Performed By: #### C MP #### [facility] [address] [place] [address] Dr. Eran Chacon ALP [Catalytic activity/Vol] 104 U/L Normal 46-116 [facility] Comment on above: Performed By: #### C MP #### [facility] [address] [address] [address] Eran Chacon ALT [Catalytic activity/Vol] 28 U/L Normal 16-63 [facility] Comment on above: Performed By: #### C MP #### [facility] [address] [place] [address] Dr. Eran Chacon Anion gap [Moles/Vol] 7.2 mmol/L Normal [facility] Comment on above: Performed By: #### C MP #### [facility] [address] [address] [address] Eran Chacon AST [Catalytic activity/Vol] 14 U/L Critically low 15-37 [facility] Comment on above: Performed By: #### C MP #### [facility] [address] [place] [address] Dr. Eran Chacon Bilirubin [Mass/Vol] 0.4 mg/dL Normal 0.2-1.0 [facility] Comment on above: Performed By: #### C MP #### [facility] [address] [place] [address] Dr. Eran Chacon Calcium [Mass/Vol] 9.0 mg/dL Normal 8.5-10.1 [facility] Comment on above: Performed By: #### C MP #### [facility] [address] [place] [address] Dr. Eran Chacon Chloride [Moles/Vol] 103 mmol/L Normal 98-107 [facility] Comment on above: Performed By: #### C MP #### [facility] [address] [address] [address] Eran Chacon CO2 [Moles/Vol] 30.0 mmol/L Normal 21.0-32.0 [facility] Comment on above: Performed By: #### C MP #### [facility] [address] [place] [address] Dr. Eran Chacon Creatinine [Mass/Vol] 0.85 mg/dL Normal 0.70-1.30 [facility] Comment on above: Performed By: #### C MP #### [facility] [address] [place] [address] Dr. Eran Chacon EGFR-AF ITALIAN >60 Normal >=60 [facility] Comment on above: Performed By: #### C MP #### [facility] [address] [address] [address] Eran Chacon EGFR-NON AF ITALIAN >60 Normal >=60 [facility] Comment on above: Performed By: #### C MP #### [facility] [address] [address] [address] Eran Chacon Globulin (S) [Mass/Vol] 3.3 g/dL Normal [facility] Comment on above: Performed By: #### C MP #### [facility] [address] [address] [address] Eran Chacon Glucose [Mass/Vol] 165 mg/dL Critically high 74-106 [facility] Comment on above: Performed By: #### C MP #### [facility] [address] [place] [address] Dr. Eran Chacon Potassium [Moles/Vol] 4.2 mmol/L Normal 3.5-5.1 [facility] Comment on above: Performed By: #### C MP #### [facility] [address] [place] [address] Dr. Eran Chacon Protein [Mass/Vol] 7.3 g/dL Normal 6.4-8.2 [facility] Comment on above: Performed By: #### C MP #### [facility] [address] [place] [address] Dr. Eran Chacon Sodium [Moles/Vol] 136 mmol/L Normal 136-145 [facility] Comment on above: Performed By: #### C MP #### [facility] [address] [address] [address] Eran Chacon Urea nitrogen [Mass/Vol] 10.0 mg/dL Normal 7.0-18.0 [facility] Comment on above: Performed By: #### C MP #### [facility] [address] [place] [address] Dr. Eran Chacon Urea nitrogen/Creatini ne [Mass ratio] 11.8 mg/mg Normal [facility] Comment on above: Performed By: #### C MP #### [facility] [address] [place] [address] Dr. Eran Chacon URINE MICROSCOPIC ONLYon BACTERIA NONE SEEN Normal NONE SEEN [facility] Comment on above: Performed By: #### E RUR, UMICRO #### [facility] [address] [place] [address] Dr. Eran Chacon Bacteria identified Cx Nom (U) NOT INDICATED Normal [facility] Comment on above: Performed By: #### E RUR, UMICRO #### [facility] [address] [place] [address] Dr. Eran Chacon CAST NONE SEEN Normal NONE SEEN [facility] Comment on above: Performed By: #### E RUR, UMICRO #### [facility] [address] [place] [address] Dr. Eran Chacon Crystals LM Nom (Urine sed) NONE SEEN Normal NONE SEEN [facility] Comment on above: Performed By: #### E RUHoda, UMICRO #### [facility] [address] [place] [address] Dr. Eran Chacon Epithelial cells LM Ql (Urine sed) RARE Normal NONE SEEN /RARE [facility] Comment on above: Performed By: #### E NIKKY UMICRO #### [facility] [address] [place] [address] Dr. Eran Chacon MUCOUS NONE SEEN Normal NONE SEEN [facility] Comment on above: Performed By: #### Med SHER UMICRO #### [facility] [address] [place] [address] Dr. Eran Chacon RBC 0-2 Normal 0-2 [facility] Comment on above: Performed By: #### Med SHER UMICRO #### [facility] [address] [place] [address] Dr. Eran Chacon WBC 2-5 Abnormal NONE SEEN [facility] Comment on above: Performed By: #### Med SHER UMICRO #### [facility] [address] [place] [address] Dr. Eran Chacon MRI SHOULDER LT WO [...] YEISON NAVAS Date: 2022-02-02 17:09 Normal [facility] XR shoulder LT min 2V*on XR shoulder LT min 2V* [facility] [place] [address] [place] [id number] XRay Report Signed Patient: Eric Craig MR#: [id number] : 1960 Acct:[id number] Age/Sex: 61 / M ADM Date: 01/25/22 Loc: [facility] Room: Type: [facility] Attending Dr: Kesha Trujillo MD Ordering [...] Otilia Nunez M.D.01/25/2022 11:41 AM Dictation Location: [address] [address] Transcribed By: [facility] 01/25/22 1141 Dictated By: Otilia Nunez MD 01/25/22 1139 Signed By: 01/25/22 1141 [facility] Vital Signs Date Time Vital Sign Value Performing Clinician Facility 08-13-2023 10:30-0500 Body height 175.26 cm Hannah Magallanes Other [employer] Other 08-13-2023 10:30-0500 Body mass index (BMI) [Ratio] 33.9 kg/m2 Hannah Magallanes Other [employer] Other 08-13-2023 10:30-0500 Body weight 104.15 kg Hannah Magallanes Other [employer] Other 08-13-2023 10:30-0500 Diastolic blood pressure 78 mm[Hg] Hannah Magallanes Other [employer] Other 08-13-2023 10:30-0500 Systolic blood pressure 124 mm[Hg] Hannah Magallanes Other [employer] Other 06-25-2023 08:45-0500 Body height 175.26 cm Hannah Magallanes Other [employer] Other 06-25-2023 08:45-0500 Body mass index (BMI) [Ratio] 33.37 kg/m2 Hannah Magallanes Other [employer] Other 06-25-2023 08:45-0500 Body temperature 96.5 [degF] Hannah Magallanes Other [employer] Other 06-25-2023 08:45-0500 Body weight 102.51 kg Hannah Magallanes Other [employer] Other 06-25-2023 08:45-0500 Diastolic blood pressure 85 mm[Hg] Hannah Magallanes Other [employer] Other 06-25-2023 08:45-0500 Systolic blood pressure 149 mm[Hg] Hannah Magallanes Other [employer] Other 05-28-2023 10:45-0400 Body height 175.26 cm Hannah Magallanes Other [employer] Other 05-28-2023 10:45-0400 Body mass index (BMI) [Ratio] 33.52 kg/m2 Hannah Magallanes Other [employer] Other 05-28-2023 10:45-0400 Body weight 102.97 kg Hannah Magallanes Other [employer] Other 05-28-2023 10:45-0400 Diastolic blood pressure 82 mm[Hg] Hannah Magallanes Other [employer] Other 05-28-2023 10:45-0400 Systolic blood pressure 147 mm[Hg] Hannah Magallanes Other [employer] Other 2023 08:45-0400 Body height 175.26 cm Hannah Magallanes Other [employer] Other 2023 08:45-0400 Body mass index (BMI) [Ratio] 33.52 kg/m2 Hannah Magallanes Other [employer] Other 2023 08:45-0400 Body weight 102.97 kg Hannah Magallanes Other [employer] Other 2023 08:45-0400 Diastolic blood pressure 85 mm[Hg] Hannah Magallanes Other [employer] Other 2023 08:45-0400 Systolic blood pressure 156 mm[Hg] Hannah Magallanes Other [employer] Other 04-30-2023 09:45-0400 Body height 175.26 cm Hannah Magallanes Other [employer] Other 04-30-2023 09:45-0400 Body mass index (BMI) [Ratio] 34.32 kg/m2 Hannah Magallanes Other [employer] Other 04-30-2023 09:45-0400 Body temperature 96.2 [degF] Hannah Magallanes Other [employer] Other 04-30-2023 09:45-0400 Body weight 105.42 kg Hannah Magallanes Other [employer] Other 04-30-2023 09:45-0400 Diastolic blood pressure 78 mm[Hg] Hannah Magallanes Other [employer] Other 04-30-2023 09:45-0400 Respiratory rate 16 /min Hannah Magallanes Other [employer] Other 04-30-2023 09:45-0400 Systolic blood pressure 146 mm[Hg] Hannah Magallanes Other [employer] Other 02-20-2023 09:15-0400 Body height 175.26 cm Hannah Magallanes Other [employer] Other 02-20-2023 09:15-0400 Body mass index (BMI) [Ratio] 33.46 kg/m2 Hannah Magallanes Other [employer] Other 02-20-2023 09:15-0400 Body weight 102.79 kg Hannah Magallanes Other [employer] Other 02-20-2023 09:15-0400 Diastolic blood pressure 77 mm[Hg] Hannah Magallanes Other [employer] Other 02-20-2023 09:15-0400 Systolic blood pressure 131 mm[Hg] Hannah Magallanes Other [employer] Other 01-17-2023 08:45-0400 Body height 175.26 cm Hannah Magallanes Other [employer] Other 01-17-2023 08:45-0400 Body mass index (BMI) [Ratio] 33.37 kg/m2 Hannah Magallanes Other [employer] Other 01-17-2023 08:45-0400 Body weight 102.51 kg Hannah Magallanes Other [employer] Other 01-17-2023 08:45-0400 Diastolic blood pressure 79 mm[Hg] Hannah Magallanes Other [employer] Other 01-17-2023 08:45-0400 Systolic blood pressure 128 mm[Hg] Hannah Magallanes Other [employer] Other 11-23-2022 09:30-0400 Body height 175.26 cm Hannah Magallanes Other [employer] Other 11-23-2022 09:30-0400 Body mass index (BMI) [Ratio] 33.96 kg/m2 Hannah Magallanes Other [employer] Other 11-23-2022 09:30-0400 Body weight 104.33 kg Hannah Magallanes Other [employer] Other 11-23-2022 09:30-0400 Diastolic blood pressure 72 mm[Hg] Hannah Magallanes Other [employer] Other 11-23-2022 09:30-0400 Systolic blood pressure 122 mm[Hg] Hannah Magallanes Other [employer] Other 09-04-2022 11:30-0500 Body height 175.26 cm Hannah Magallanes Other [employer] Other 09-04-2022 11:30-0500 Body mass index (BMI) [Ratio] 33.52 kg/m2 Hannah Magallanes Other [employer] Other 09-04-2022 11:30-0500 Body weight 102.97 kg Hannah Magallanes Other [employer] Other 09-04-2022 11:30-0500 Diastolic blood pressure 80 mm[Hg] Hannah Magallanes Other [employer] Other 09-04-2022 11:30-0500 SaO2% (BldA) [Mass fraction] 95 % Hannah Magallanes Other [employer] Other 09-04-2022 11:30-0500 Systolic blood pressure 122 mm[Hg] Hannah Magallanes Other [employer] Other 02-06-2022 12:45-0400 Body height 175.26 cm Kesha Olexa Other [employer] Other 02-06-2022 12:45-0400 Body mass index (BMI) [Ratio] 31.01 kg/m2 Kesha Olexa Other [employer] Other 02-06-2022 12:45-0400 Body weight 95.26 kg Kesha Olexa Other [employer] Other 05-26-2021 13:15-0400 Body height 175.26 cm Harriet Ginty Other [employer] Other 05-26-2021 13:15-0400 Body mass index (BMI) [Ratio] 31.01 kg/m2 Harriet Ginty Other [employer] Other 05-26-2021 13:15-0400 Body temperature 98.3 [degF] Harriet Ginty Other [employer] Other 05-26-2021 13:15-0400 Body weight 95.26 kg Harriet Ginty Other [employer] Other 05-26-2021 13:15-0400 SaO2% (BldA) [Mass fraction] 96 % Harriet Ginty Other [employer] Other Encounters Encounter Date Encounter Type Care Provider Facility Start: 08-20-2023 End: 08-20-2023 ambulatory Hannah Magallanes Other [employer] Other Start: 08-20-2023 Telephone encounter Hannah Magallanes [facility] Start: 08-13-2023 End: 08-13-2023 ambulatory Hannah Magallanes Other [employer] Other Start: 08-13-2023 Office outpatient vi sit 25 minutes Hannah Magallanes [facility] Start: 08-13-2023 Telephone encounter Hannah Magallanes [facility] Start: 08-06-2023 End: 08-06-2023 ambulatory Hannah Magallanes Other [employer] Other Start: 08-06-2023 Telephone encounter Hannah Magallanes [facility] Start: 07-29-2023 End: 07-29-2023 ambulatory BARBIE Tellez POCOS Not Available Start: 07-22-2023 End: 07-22-2023 ambulatory Hannah Magallanes Other [employer] Other Start: 07-22-2023 Telephone encounter Hannah Magallanes [facility] Start: 07-19-2023 End: 07-19-2023 ambulatory Hannah Magallanes Other [employer] Other Start: 07-19-2023 Telephone encounter Hannah Magallanes [facility] Start: 07-18-2023 End: 07-18-2023 ambulatory Hannah Magallanes Other [employer] Other Start: 07-18-2023 Telephone encounter Hannah Magallanes [facility] Start: 07-02-2023 End: 07-02-2023 ambulatory Hannah Magallanes Other [employer] Other Start: 07-02-2023 Office outpatient vi sit 15 minutes Hannah Sona [facility] Start: 07-02-2023 Telephone encounter Hannah Magallanes [facility] Start: 06-25-2023 End: 06-25-2023 ambulatory Hannah Sona Other [employer] Other Start: 06-25-2023 Office outpatient vi sit 15 minutes Hannah Sona [facility] Start: 06-21-2023 End: 06-21-2023 ambulatory Hannah Sona Other [employer] Other Start: 06-21-2023 Encounter by [employer] hoda owen Hannahyeyo Magallanes [facility] Start: 06-20-2023 End: 06-20-2023 ambulatory Hannah Sona Other [employer] Other Start: 06-20-2023 Telephone encounter Hannah Sona [facility] Start: 06-17-2023 End: 06-17-2023 ambulatory Hannah Sona Other [employer] Other Start: 06-17-2023 Telephone encounter Hannah Sona [facility] Start: 06-10-2023 End: 06-10-2023 ambulatory Hannah Sona Other [employer] Other Start: 06-10-2023 Telephone encounter Hannah Sona [facility] Start: 06-03-2023 End: 06-03-2023 ambulatory Hannah Sona Other [employer] Other Start: 06-03-2023 Telephone encounter Hannah Sona [facility] Start: 05-30-2023 End: 05-31-2023 ambulatory Barbie Jesus [facility] Start: 05-30-2023 End: 05-30-2023 Patient encounter procedure Barbie Jesus [facility] Start: 05-28-2023 End: 05-28-2023 ambulatory Hannah Magallanes Other [employer] Other Start: 05-28-2023 Office outpatient vi sit 15 minutes Hannah Magallanes [facility] Start: 2023 End: 2023 ambulatory Hannah Magallanes Other [employer] Other Start: 2023 Office outpatient vi sit 15 minutes Hannah Magallanes [facility] Start: 05-16-2023 End: 05-16-2023 ambulatory Hannah Magallanes Other [employer] Other Start: 05-16-2023 Telephone encounter Hannah Magallanes [facility] Start: 04-30-2023 End: 04-30-2023 ambulatory Hannah Magallanes Other [employer] Other Start: 04-30-2023 Office outpatient vi sit 15 minutes Hannah Magallanes [facility] Start: 04-26-2023 End: 04-26-2023 ambulatory Hannah Magallanes Other [employer] Other Start: 04-26-2023 Telephone encounter Hannah Magallanes [facility] Start: 04-23-2023 End: 04-23-2023 ambulatory Hannah Magallanes Other [employer] Other Start: 04-23-2023 Telephone encounter Hannah Magallanes [facility] Start: 03-25-2023 End: 03-25-2023 ambulatory Hannah Magallanes Other [employer] Other Start: 03-25-2023 Telephone encounter Hannah Magallanes [facility] Start: 03-06-2023 End: 03-06-2023 ambulatory Hannah Magallanes Other [employer] Other Start: 03-06-2023 Telephone encounter Hannah Magallanes [facility] Start: 02-20-2023 End: 02-20-2023 ambulatory Hannah Magallanes Other [employer] Other Start: 02-20-2023 Office outpatient vi sit 25 minutes Hannah Magallanes [facility] Start: 02-05-2023 End: 02-05-2023 ambulatory Hannah Sona Other [employer] Other Start: 02-05-2023 Telephone encounter Hannah Magallanes [facility] Start: 01-21-2023 End: 01-21-2023 ambulatory Hannah Magallanes Other [employer] Other Start: 01-21-2023 Telephone encounter Hannah Magallanes [employer] Start: 01-17-2023 End: 01-17-2023 ambulatory Hannah Magallanes Other [employer] Other Start: 01-17-2023 Office outpatient vi sit 15 minutes Hannah Magallanes [facility] Start: 12-24-2022 End: 12-24-2022 ambulatory Hannah Sona Other [employer] Other Start: 12-24-2022 Telephone encounter Hannah Sona [facility] Start: 12-03-2022 End: 12-03-2022 ambulatory Hannah Sona Other [employer] Other Start: 12-03-2022 Telephone encounter Hannah Magallanes [facility] Start: 11-27-2022 End: 11-27-2022 ambulatory Hannah Magallanes Other [employer] Other Start: 11-27-2022 Telephone encounter Hannah Magallanes [facility] Start: 11-26-2022 End: 11-26-2022 ambulatory Hannah Magallanes Other [employer] Other Start: 11-26-2022 Telephone encounter Hannah Magallanes [facility] Start: 11-24-2022 End: 11-25-[address] HANNAH MAGALLANES Facility:[facility] Start: 11-23-2022 End: 11-23-2022 ambulatory Hannah Magallanes Other [employer] Other Start: 11-23-2022 Office outpatient vi sit 15 minutes Hannah Magallanes [facility] Start: 11-05-2022 End: 11-05-2022 ambulatory Hannah Magallanes Other [employer] Other Start: 11-05-2022 Telephone encounter Hannah Magallanes [facility] Start: 10-03-2022 End: 10-03-2022 ambulatory Hannah Magallanes Other [employer] Other Start: 10-03-2022 Telephone encounter Hannah Magallanes [facility] Start: 09-04-2022 End: 09-04-2022 ambulatory Hannah Magallanes Other [employer] Other Start: 09-04-2022 Office outpatient vi sit 25 minutes Hannah Magallanes [facility] Start: 07-26-[address] HANNAH MAGALLANES Facil ity:[facility] Start: 07-19-2022 End: 07-20-[address] WILFREDO ENGLE Facility:[facility] Start: 06-07-2022 End: 06-07-[address] HANNAH MAGALLANES Facility:[facility] Start: 03-15-2022 ambulatory KESHA TRUJILLO Facility:[facility] Start: 02-06-2022 End: 02-06-2022 ambulatory Kesha Trujillo Other [employer] Other Start: 02-06-2022 Office outpatient vi sit 25 minutes Kesha Trujillo [facility] Start: 02-02-2022 End: 02-03-2022 ambulatory KESHA TRUJILLO Facility:[facility] Start: 12-28-2021 End: 12-28-[address] HANNAH MAGALLANES Facility:[facility] Start: 12-12-2021 End: 12-13-2021 ambulatory KESHA TRUJILLO [email or web address] Other Start: 12-12-2021 Office outpatient ne w 30 minutes Kseha Trujillo [facility] Start: 05-26-2021 Office outpatient vi sit 15 [...] (incl. purified surface antigen) Hannah Magallanes Other [employer] Other 06-28-2016 tetanus and diphther ia toxoids, adsorbed, preservative free, for adult use (5 Lf of tetanus toxoid and 2 Lf of diphtheria toxoid) Hannah Magallanes Other [employer] Other 05-25-2015 tetanus and diphther ia toxoids, adsorbed, preservative free, for adult use (5 Lf of tetanus toxoid and 2 Lf of diphtheria toxoid) Hannah Magallanes Other [employer] Other Payers Date Payer Category Payer Unknown [id number] 2.16.84 [id number] 1960 Unknown [id number] 2.16.84 [id number] 1960 Unknown [id number] 2.16.84 [id number] 1960 Unknown [id number] 2.16.84 [id number] 1960 Unknown [id number] 2.16.84 [id number] 1960 Unknown [id number] 2.16.84 [id number] 1960 Unknown [id number] 2.16.84 [id number] 1960 Unknown [id number] 2.16.84 [id number] 1960 Unknown [id number] 2.16.8 [id number] 1960 Unknown [id number] 1959 Medicaid [id number] 2. [id number] 1959 Medicare [id number] 2.1 [id number] Social History Date Type Detail Facility Sex Assigned At [facility] Tobacco smoking status No Smoking Status Entered [facility] Medical Equipment Procedure Code Equipment Code Equipment Original Text Equi pment Identifier Dates Accu-Chek [employer] Lancet - Clinical Notes 05-26-2021 to 08-13-2023 Note Date & Type Note Facility 08-13-2023 Evaluation note Encounter Date Diagnosis Assessment Notes Jul, Type 2 diabetes mellitus with hyperglycemia , without long-term current use of insulin (ICD-10 - E11.65) [employer] Other [id number] Evaluation note* Encounter Date Diagnosis Assessment Notes [...] T3s after shoulder pain has improved post-operatively. [employer] Other 12-04-2023 Evaluation note* Encounter Date Diagnosis Assessment Notes Treatment Notes Treatment Clinical Notes Jul, Type 2 diabetes mellitus with hyperglycemia, without long-term current use of insulin (ICD-10 - E11.65) [employer] Other 12-01-2023 Evaluation note* Encounter Date Diagnosis Assessment Notes Treatment Notes Treatment Clinical Notes Jul, Type 2 diabetes mellitus with hyperglycemia, without long-term current use of insulin (ICD-10 - E11.65) [employer] Other 11-30-2023 Evaluation note* Encounter Date Diagnosis Assessment Notes Treatment Notes Treatment Clinical Notes Jun, Labral tear of shoulder, right, subsequent encounter (ICD-10 - S43.431D) [employer] Other 11-14-2023 Evaluation note* Encounter Date Diagnosis [...] pain (ICD-10 - R07.9) r/o cardiac cause [employer] Other 11-07-2023 Evaluation note* Encounter Date Diagnosis [...] to decrease dose and possibly discontinue medication. [employer] Other 11-02-2023 Evaluation note* Encounter Date Diagnosis Assessment Notes Treatment Notes Treatment Clinical Notes Jun, Acute pain of right shoulder (ICD-10 - M25.511) [employer] Other 10-30-2023 Evaluation note* Encounter Date Diagnosis Assessment Notes Treatment Notes Treatment Clinical Notes May, Acute pain of right shoulder (ICD-10 - M25.511) [employer] Other 10-23-2023 Evaluation note* Encounter Date Diagnosis Assessment Notes Treatment Notes Treatment Clinical Notes May, Acute pain of right shoulder (ICD-10 - M25.511) [employer] Other 10-16-2023 Evaluation note* Encounter Date Diagnosis Assessment Notes Treatment Notes Treatment Clinical Notes May, Acute pain of right shoulder (ICD-10 - M25.511) [employer] Other 10-10-2023 Evaluation note* Encounter Date Diagnosis Assessment Notes Treatment Notes Treatment Clinical Notes May, Acute pain of right shoulder (ICD-10 - M25.511) MRI and surgery planning pending. Pt understands this is a controlled substance and to call in 1 week w update on treatment plan. May, Bronchitis (ICD-10 - J40) Finish antibiotic, rest, hydrate Steroids for wheezing. [employer] Other 10-04-2023 Evaluation note* Encounter Date Diagnosis Assessment Notes Treatment Notes Treatment Clinical Notes May, Acute pain of right shoulder (ICD-10 - M25.511) Reviewed [place] and discussed short term plan of increase in pain medication. He is due for a refill of the T3s presently. Stop them, replace w norco. Pt understands weekly prescription and will need to d/c after anticipated surgery. [employer] Other 09-12-2023 Evaluation note* Encounter Date Diagnosis [...] office and the ER visit on 04/26 [employer] Other 07-05-2023 Evaluation note* Encounter Date Diagnosis [...] and will need less prn pain med. [employer] Other 06-01-2023 Evaluation note* Encounter Date Diagnosis [...] left shoulder (ICD-10 - M25.512) as above. [employer] Other 04-17-2023 Evaluation note* Encounter Date Diagnosis Assessment Notes Treatment Notes Treatment Clinical Notes Nov, Bronchitis (ICD-10 - J40) [employer] Other 04-11-2023 Evaluation note* Encounter Date Diagnosis Assessment Notes Treatment Notes Treatment Clinical Notes Nov, Disc degeneration, lumbar (ICD-10 - M51.36) Nov, Lumbar radicular pain (ICD-10 - M54.16) [employer] Other 04-07-2023 Evaluation note* Encounter Date Diagnosis [...] quit smoking. Pt verbalizes understanding and agreement. [employer] Other 02-15-2023 Evaluation note* Encounter Date Diagnosis Assessment Notes Treatment Notes Treatment Clinical Notes Sep, Lumbar radicular pain (ICD-10 - M54.16) [employer] Other 01-17-2023 Evaluation note* Encounter Date Diagnosis [...] is outlined on the test result page. [employer] Other 10-20-2022 NoteIndication: Calculus in kidney. 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 [employer] Other 04-26-2022 NotePROCEDURE: XR SHOULDER LT 2V or > COMPARISON: None. HISTORY: Pain of left shoulder joint FINDINGS: BONES:No acute fracture or dislocation. 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 No visible soft tissue swelling. EFFUSION:None visible. OTHER: Negative. IMPRESSION: Mild osteoarthritis Electronically authenticated by: BARBIE MEMBRENO Date: [facility]-12 [facility] Encounter Date Diagnosis Assessment Notes [...] pain of left shoulder (ICD-10 - M25.512) [employer] Other 10-08-2021 Evaluation note* Encounter Date Diagnosis [...] as needed for cough. Advised patient that [place] contains antihistamine and cough suppressant and to be cautious using other OTC cold medications. Patient to follow up with PCP if symptoms do not improve. Immediate eval if SOB, difficulty breathing, chest pain, dizziness, or other concerning symptoms. 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 Surgical History carpal tunnel release 2017 Surgical History tonsillectomy Hospitalization History 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 Hospitalization History pneumonia [employer] Other Hospital Discharge instructions No data available for this section [facility] No data available for this section [facility] Summary Purpose Family History No Family [...] 1 Epigastric abdominal pain (R10.13) Referral Organization [facility] Referring Provider First Name Hannah Referring Provider Last Name Sona Referring Provider Specialty [facility] Referred Organization [facility] Referred Provider Sai Martinez Referred Address ,[place], [place],[address] Referred Provider Specialty Surgery Referral Priority Routine General Notes Es Camilo 11:38:02 AM >received today, attachments made, notes locked, referral faxed Reason 01/28/23 Access Or tho - B shoulder pain L>R - hopes for injections. Diagnosis 1 Pain in right should er (M25.511) Referral Organization [facility] Referring Provider First Name Hannah Referring Provider Last Name Sona Referring Provider Specialty [facility] Referred Organization [facility] Referred Provider Barbie Jesus Referred Address ,[place], [place],[address] Referred Provider Specialty Orthopaedic Surgery Referral Priority [...] in right should er (M25.511) Referral Organization [facility] Referring Provider First Name Hannah Referring Provider Last Name Magallanes Referring Provider Specialty Family [facility] Referred Organization [facility] Referred Provider Barbie Jesus Referred Address ,[place], [place],[address] Referred Provider Specialty Orthopaedic Surgery Referral Priority [...] section and content) DATE CREATED AUTHOR 02/10/2022 [facility] DATE CREATED AUTHOR AUTHOR'S ORGANIZ ATION 12/04/2022 [facility] DATE CREATED AUTHOR AUTHOR'S ORGANIZ ATION 06/01/2023 [facility] DATE CREATED AUTHOR AUTHOR'S ORGANIZ ATION 07/30/2023 [facility] Patient Care team informmatilde n (unrecognized section and content) Personnel Name: HANNAH MAGALLANES MD Address: Address: [address] [place] [address] FOR RECORDS PERTAINING TO PATIENTS WHO ARE [...] BE BASED ON THE PRIMARY CLINICAL RECORDS. [facility] [employer] provides no warranty or guarantee of the accuracy or completeness of information in this document.
[2023-08-30 22:39] VITALS: BP 163/95; PULSE 86; RESP 16; TEMP 36.8; O2SAT 94; BMI 31.6
--- NOTE | 2023-08-30 23:18 | ED_ITS ---
HPI - Extremity Injury (Upper) General Chief Complaint: Extremity Injury, Upper Stated Complaint: Post Surgical Complications Time Seen by Provider: 08/30/23 23:11 Source: patient Mode of arrival: walk-in Limitations: no limitations History of Present Illness HPI narrative: surgery right shoulder one week ago. States he was prescribed vicodin for the pain. States Vicodin is not working and he was prescribed Percocet for pain. States pharmacy would not feel Percoet prescription because his had picked up the Vicodin prescription. States the Vicodin is not controlling his pain. No fever. No drainage from the shoulder incision. Pain is not worsening but is not getting better. 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 Related Data Home Medications Medication Instructions Recorded Confirmed glipizide 5 mg-metformin 500 mg 1 tab PO DAILY 08/23/23 08/30/23 tablet oxycodone-acetaminophen 5 mg-325 tab 08/23/23 mg tablet Previous Rx's Medication Instructions Recorded hydrocodone 5 mg-acetaminophen 325 1 tab PO Q6H PRN pain #14 tabs 04/25/23 mg tablet Allergies Allergy/AdvReac Type Severity Reaction Status Date / Time ibuprofen [From Motrin] AdvReac Mild Verified 08/30/23 22:39 IV dye Allergy Uncoded 08/30/23 22:39 Review of Systems ROS Status of ROS 10 or more systems reviewed and unremark able except as noted in h istory and below PFSH PFSH Social History Smoking status: Current every day smoker Exam Constitutional Vital Signs, click to edit/add: Last Vital Signs Temp 98.2 F 08/30/23 22:39 Pulse 86 08/30/23 22:39 Resp 16 08/30/23 22:39 BP 139/80 08/31/23 00:45 Pulse Ox 92 L 08/31/23 00:50 Common normals: no apparent distress (mild distress with movement of the right shoulder. Describes sharp pain), average body habitus and oriented x3 Eye Common normals: EOMs intact bilaterally and conjunctivae normal Respiratory Common normals: normal respiratory effort, no retractions and no use of accessory muscles GI Common normals: Normal to inspection, nondistended, normoactive bowel sounds present and soft to palpation Extremity Other: incision right shoulder is clean. has resolving. ecchymosis right chest wall at right apex. limited ROM right shoulder Neuro Common normals: oriented x3, CN's II-XII intact bilaterally and moves all extremities Psych Appearance: grossly normal Course Vital Signs Vital signs: Vital Signs Temperature 98.2 F 08/30/23 22:39 Pulse Rate 86 08/30/23 22:39 Respiratory Rate 16 08/30/23 22:39 Blood Pressure 163/95 H 08/30/23 22:39 Pulse Oximetry 94 L 08/30/23 22:39 Temperature 98.2 F 08/30/23 22:39 Pulse Rate 86 08/30/23 22:39 Respiratory Rate 16 08/30/23 22:39 Blood Pressure 139/80 08/31/23 00:45 Pulse Oximetry 92 L 08/31/23 00:50 MDM - Extremity Injury (Upper) MDM Narrative Medical decision making narrative: patient presents with post op right shoulder pain. inspection of the shoulder without evidence of infection. Pain treated in the department and decreased to 5-6/10. Patient discharged home with a prescription for neurontin and provided 4 percocet pills to take tonight Discharge Plan Discharge Chief Complaint: Extremity Injury, Upper Clinical Impression: Postoperative pain, acute, shoulder Patient Disposition: Home, Self-Care Prescriptions / Home Meds: No Action hydrocodone-acetaminophen 5-325 mg tablet 1 tab PO Q6H PRN (Reason: pain) Qty: 14 0RF oxycodone-acetaminophen 5-325 mg tablet glipizide-metformin 5-500 mg tablet 1 tab PO DAILY Instructions: Pain Management After Surgery (DC) Stand Alone Forms: Portal Instructions Referrals: Hannah Gallo MD [Primary Care Provider] - 1 week
[2023-08-30 23:38] VITALS: BP 128/83; O2SAT 96
[2023-08-30] MEDS: METHYLPREDNISOLONE SOD SUCC PF 125 MG/2 ML VIAL IVP (23:38)
[2023-08-30] MEDS: HYDROMORPHONE HCL 1 MG/ML CARTRIDGE 0.5 MG IVP (23:38)
[2023-08-30 23:40] VITALS: O2SAT 95
[2023-08-30 23:50] VITALS: O2SAT 95
[2023-08-30] MEDS: GABAPENTIN 400 MG CAPSULE 800 MG PO (23:55)
[2023-08-31] VITALS (9 sets, daily range): BP systolic 139–151; BP diastolic 80–86; PULSE 81; O2SAT 91–94
[2023-08-31] MEDS: OXYCODONE HCL/ACETAMINOPHEN 5MG/325MG 4 TAB PO (01:14)
== END 2023-08-31 01:21 | disposition home or self-care (01) ==
PROVIDERS: Emergency Provider Internal Medicine; PCP Family Medicine
DX: G89.18 Other acute postprocedural pain (principal); M25.511 Pain in right shoulder; F17.210 Nicotine dependence, cigarettes, uncomplicated
CPT/HCPCS: 96374; 96375; 99284; J1170; J2930

== ENCOUNTER 2023-09-08 19:16 | Inpatient (IN) | payer MEDICARE, MEDICAID, SELFPAY ==
[2023-09-08] VITALS (21 sets, daily range): BP systolic 127–178; BP diastolic 70–105; PULSE 94–109; RESP 17–31; TEMP 37.7–38.6; O2SAT 90–95; BMI 31.6; BMI 32.3
--- NOTE | 2023-09-08 19:21 | ECG_ITS ---
[facility] Test Date: 2023-09-08 Pat Name: ERIC CRAIG Department: Room: Gender: Male [employer]: : [id number] Requested By: JEREMY MAGALLANES Order Number: [id number] Reading MD: WILFREDO ENGLE Measurements Intervals [place] Rate: 104 P: 73 MD: 176 QRS: 83 QRSD: 102 T: 90 QT: 328 QTc: 388 Interpretive Statements 1120 Sinus tachycardia [address] depression, can't exclude inferolateral ischemia 9140 abnormal rhythm ECG Electronically Signed On 09-10-2023 6:47:58 EST by WILFREDO ENGLE
--- OUTSIDE RECORDS SUMMARY | 2023-09-08 19:24 | XMS_ITS | CCD ---
Author Name Unknown Address [address] [place] [address] Organization [facility] Care Team Providers Care Warehouse Receiving Supervisor Name Role Phone Kesha Trujillo Unavailable Harriet Mo Unavailable Hannah Magallanes Unavailable SONA, DR HANNAH Jovel Admitting Unavailable MAGALLANES, DR HANNAH Jovel Attending Unavailable MAGALLANES, DR HANNAH Jovel Primary Care Unavailable MAGALLANES, DR HANNAH Jovel Consulting Unavailable TAVERAS, RUBI Consulting Unavailable OLEXA, KESHA Admitting Unavailable OLEXA, KESHA Attending Unavailable MAGALLANES, DR HANNAH Jovel Primary Care Unavailable CLARKS [place]OVE, DR BARBIE Goldberg Consulting Unavailable OLEXA, KESHA Consulting Unavailable OLEXA, KESHA Admitting Unavailable OLEXA, KESHA Attending Unavailable MAGALLANES, DR HANNAH Jovel Primary Care Unavailable MAGALLANES, DR HANNAH Jovel Referring Unavailable ZIEBLORI, DR YEISON Drummond Consulting Unavailable OLEXA, KESHA [...] Consulting Unavailable HANNAH MAGALLANES Primary Care Physician [phone] Edin, Barbie Tellez Referring Unavailable Pocos, Barbie Tellez Attending Unavailable Pocos, Barbie Tellez Admitting Unavailable POCOS, BARBIE Tellez Attending Unavailable POCOS, BARBIE Tellez Referring Unavailable POCOS, BARBIE Tellez Attending Unavailable Allergies Allergy Classification Reported Allergen(s) Allergy Type Date of Onset Reaction(s) Facility (20 sources) [facility] ([facility] sources) olodaterol / tiotropium Drug Allergy shortness of breath [facility] [employer] Other (20 sources) CT Scan dye Propensity to adverse reactions [facility] [employer] Other (2 sources) Ibuprofen Drug Allergy 08-19-18 80 [facility] Repository (2 sources) Iodine (And Iodine Containting Drugs) Drug allergy (disorder) 09-07-19 16 [facility] Repository (1 source) NSAIDs Drug allergy (disorder) [facility] Repository (20 sources) fentaNYL Drug Allergy Unknown [facility] [employer] Other (3 sources) Ibuprofen Drug Allergy 01-15-20 15 Unknown [facility] Other (20 sources) Ofloxacin Drug Allergy Unknown [facility] Other (3 sources) zafirlukast Drug Allergy 01-15-20 15 Unknown [facility] Other (20 sources) Zafirlukast *ANTIASTHMATIC AND BRONCHODILATOR AGEN Propensity to adverse reactions Unknown [facility] Other (20 sources) Ibuprofen & Diet Manage Prod *ANALGESICS - ANTI-IN Propensity to adverse reactions Unknown [facility] Other (3 sources) Allergies Reconciled Propensity to adverse reactions Unknown [facility] Other (20 sources) Iodinated contrast media (substance) Drug allergy Unknown [facility] Other (3 sources) patient allergy list reviewed by nurse or physicia Propensity to adverse reactions 10-05-19 16 Comment:Done [employer] [facility] Other Medications Current Medications Medication Drug Class(es) Dates Sig (Normalized) Sig (Original) acetaminophen 300 mg / codeine phosphate 30 mg oral tablet (20 sources) Opioid Agonist Start: 09-06-2023 take 1 tablet by mouth every six hours Acetaminophen-Cod eine 300-30 MG 1 tablet as needed Orally every 6 hrs for 30 days Aug, Active Start: 04-24-2023 take 1 tablet by desirae th every six hours as needed Acetaminophen-Codeine #3 300-30 MG 1 tablet as [...] / HYDROcodone bitartrate 10 mg oral tablet (19 sources) Opioid Agonist Start: 08-13-2023 take 1 tablet by mouth every six hours Start: 07-23-2023 take 1 tablet by desirae [...] 6 hrs for 7 days May, Active [id number] actuat albuterol 0.09 mg/actuat metered dose inhaler (11 sources) beta2-Adrenergic Agonist Start: 06-25-2023 take 2 puff(s) by inhalation every four hours as needed Start: 06-25-2023 take 2 puff(s) by in [...] Oct, Active atorvastatin 20 mg oral tablet (10 sources) HMG-CoA Reductase Inhibitor take 1 tablet by mouth every twenty-four hours azithromycin 250 mg oral tablet (20 sources) [...] / metFORMIN hydrochloride 500 mg oral tablet (10 sources) Biguanide, Sulfonylurea take 2 tablets by mouth twice daily take 1 tablet by mouth twice cynthia [...] Active Start: 11-23-2022 take 2 tablets by [facility] every twenty-four hours predniSONE 20 MG 2 [...] 30 mg oral tablet (5 sources) Uncompetitive C-zpobnc-C-aspartate Receptor Antagonist, Sigma-1 Agonist Start: 05-26-2021 take 1 tablet by mouth every eight hours [place] DMT 30-30 MG 1 tablet Orally every [...] disc degeneration, lumbar region] Onset: 6 Chronic Spondylosis; intervertebral disc disorders; other back problems (5 sources) Radiculopathy, lumbar region; Translations: [Dorsalgia, unspecified] Onset: 2 Episodic Sprains and strains (2 sources) Superior glenoid [...] 10-05-2015 Episodic Other aftercare (1 source) Other residential (current) drug therapy; Translations: [OTH CRITICAL CARE CNS CURRENT DRUG THERAPY] Onset: 12-29-2021 Episodic Other [...] Translations: [Pneumonia, unspecified organism] Onset: 07-28-2015 Episodic Syncope (3 sources) Syncope and collapse; Translations: [Syncope and collapse] Onset: 09-21-2016 Episodic Results Test Name Value Interpretation Reference Range Facility [facility] 07-02-2023 Magnesium [Mass/Vol] 2.0619267 mg/dL Normal 1.8-2.4 mg/dL [facility] Other Magnesium see note [facility] Other MRI Shoulder w/o Contrast Ilya holt 05-31-2023 MRI Shoulder w/o Contrast Right Exam Date/Time: 05/30/2023 14:25 EDT Reason for Exam: [id number] Report IMPRESSION: Full-thickness rotator cuff tearing involving [...] Jesus FINAL REPORT Dictated: 05/31/2023 11:50 am Francisco Ian JACOB Signed (Electronic Signature): 05/31/2023 11:50 am Signed by: Ian Singh MD Transcribed by: TAMARA Technologist: STELLA Technical Comments None Normal [facility] Consent for Treatmenton 05-19 Consent for Treatment [id number] 0TIFF Normal [facility] RAD - MRI Screening Formon 1 RAD - MRI Screening Form [id number]#[id number] TIFF Normal [facility] Physician Orderon 05-09-2023 Physician Order [id number]. 00CD:127 Normal [facility] XR CHEST 2 Von 11-24-2022 XR [...] TAVERAS Date: 2022-11-24 17:17 Normal [facility] CT LUNG CANCER SCREENINGon 1 09-20-2021 CT LUNG CANCER SCREENING EXAMINATION: CT [...] YEISON NAVAS Date: 2022-07-20 07:18 Normal [facility] CBC AUTO DIFFon 06-07-2022 BASO # 0.1 103/ul Normal 0.0-0.1 [facility] Comment on above: Performed By: #### C BC #### [facility] [address] [address] [address] Eran Chacon Basophils/100 WBC (Bld) 0.6 % Normal 0.2-2.0 [facility] Comment on above: Performed By: #### C BC #### [facility] [address] [place] [address] Dr. Eran Chacon EO # 0.3 103/ul Normal 0.0-0.7 [facility] Comment on above: Performed By: #### C BC #### [facility] [address] [address] [address] Eran Chacon Eosinophils/100 WBC (Bld) 3.3 % Normal 0.9-7.0 [facility] Comment on above: Performed By: #### C BC #### [facility] [address] [place] [address] Dr. Eran Chacon Erythrocyte distribution width (RBC) [Ratio] 12.9 % Normal 11.0-15.0 [facility] Comment on above: Performed By: #### C BC #### [facility] [address] [place] [address] Dr. Eran Chacon Hematocrit (Bld) [Volume fraction] 47.7 % Normal 42.0-54.0 [facility] Comment on above: Performed By: #### C BC #### [facility] [address] [place] [address] Dr. Eran Chacon Hemoglobin (Bld) [Mass/Vol] 15.9 g/dL Normal 14.0-18.0 [facility] Comment on above: Performed By: #### C BC #### [facility] [address] [place] [address] Dr. Eran Chacon IG # 0.02 10e3/ul Normal 0.00-0.03 [facility] Comment on above: Performed By: #### C BC #### [facility] [address] [place] [address] Dr. Eran Chacon IG % 0.2 % Normal 0.0-0.5 [facility] Comment on above: Performed By: #### C BC #### [facility] [address] [place] [address] Dr. Eran Chacon LYMPH # 3.4 103/ul Normal 1.2-3.8 [facility] Comment on above: Performed By: #### C BC #### [facility] [address] [place] [address] Dr. Eran Chacon Lymphocytes/100 WBC (Bld) 34.5 % Normal 20.5-60.0 [facility] Comment on above: Performed By: #### C BC #### [facility] [address] [place] [address] Dr. Eran Chacon MANUAL DIFF REQ NO Normal [facility] Comment on above: Performed By: #### C BC #### [facility] [address] [place] [address] Dr. Eran Chacon MCH (RBC) [Entitic mass] 29.6 pg Normal 25.9-34.0 [facility] Comment on above: Performed By: #### C BC #### [facility] [address] [place] [address] Dr. Eran Chacon MCHC (RBC) [Mass/Vol] 33.3 g/dL Normal 29.9-35.2 [facility] Comment on above: Performed By: #### C BC #### [facility] [address] [place] [address] Dr. Eran Chacon MCV (RBC) [Entitic vol] 88.8 fL Normal 80.0-94.0 [facility] Comment on above: Performed By: #### C BC #### [facility] [address] [place] [address] Dr. Eran Chacon MONO # 0.9 103/ul Critically high 0.3-0.8 [facility] Comment on above: Performed By: #### C BC #### [facility] [address] [place] [address] Dr. Eran Chacon Monocytes/100 WBC (Bld) 9.3 % Normal 1.7-12.0 [facility] Comment on above: Performed By: #### C BC #### [facility] [address] [address] [address] Eran Chacon NEUT # 5.2 103/ul Normal 1.4-6.5 [facility] Comment on above: Performed By: #### C BC #### [facility] [address] [place] [address] Dr. Eran Chacon Neutrophils/100 WBC (Bld) 52.1 % Normal 43.0-75.0 [facility] Comment on above: Performed By: #### C BC #### [facility] [address] [place] [address] Dr. Eran Chacon Platelet mean volume (Bld) [Entitic vol] 8.8 fL Critically low 9.5-13.5 [facility] Comment on above: Performed By: #### C BC #### [facility] [address] [place] [address] Dr. Eran Chacon PLT 287 103/ul Normal 150-450 [facility] Comment on above: Performed By: #### C BC #### [facility] [address] [place] [address] Dr. Eran Chacon RBC 5.37 106/ul Normal 4.70-6.10 [facility] Comment on above: Performed By: #### C BC #### [facility] [address] [place] [address] Dr. Eran Chacon WBC 9.9 103/ul Normal 4.0-11.0 [facility] Comment on above: Performed By: #### C BC #### [facility] [address] [place] [address] Dr. Eran Chacon ER URINE PROFILEon 2 Bilirubin Ql (U) Negative Normal NEGATIVE [facility] Comment on above: Performed By: #### Med SHER UMICRO #### [facility] [address] [place] [address] Dr. Eran Chacon Clarity (U) CLEAR Normal CLEAR [facility] Comment on above: Performed By: #### Med SHER UMICRO #### [facility] [address] [place] [address] Dr. Eran Chacon Color (U) YELLOW Normal YELLOW [facility] Comment on above: Performed By: #### Med SHER UMICRO #### [facility] [address] [place] [address] Dr. Eran GATES A micrscopic examination will be performed if indicated. Normal [facility] Comment on above: Performed By: #### Med SHER UMICRO #### [facility] [address] [place] [address] Dr. Eran Chacon Glucose Ql (U) 500 mg/dl Abnormal NEGATIVE [facility] Comment on above: Performed By: #### Med SHER UMICRO #### [facility] [address] [place] [address] Dr. Eran Chacon Hemoglobin Ql (U) TRACE-INTACT Abnormal NEGATIVE [facility] Comment on above: Performed By: #### Med SHER UMICRO #### [facility] [address] [place] [address] Dr. Eran Chacon Ketones Ql (U) Negative Normal NEGATIVE [facility] Comment on above: Performed By: #### Med SHER UMICRO #### [facility] [address] [place] [address] Dr. Eran Chacon LEUKOCYTES Negative Normal NEGATIVE [facility] Comment on above: Performed By: #### Med SHER UMICRO #### [facility] [address] [place] [address] Dr. Eran Chacon Nitrite Ql (U) Negative Normal NEGATIVE [facility] Comment on above: Performed By: #### Med SHER UMICRO #### [facility] [address] [place] [address] Dr. Eran Chacon pH (U) 6.0 [pH] Normal 5-9 [facility] Comment on above: Performed By: #### BISHNU BATESRO #### [facility] [address] [place] [address] Dr. Eran Chacon SPEC GRAVITY 1.025 Normal 1.005-<=1.025 [facility] Comment on above: Performed By: #### ERMELINDA BATESICRO #### [facility] [address] [place] [address] Dr. Eran Chacon UA PROTEIN Negative Normal NEGATIVE/ TRACE [facility] Comment on above: Performed By: #### ERMELINDA BATESICRO #### [facility] [address] [place] [address] Dr. Eran Chacon UR MICRO IND INDICATED Normal [facility] Comment on above: Performed By: #### BISHNU BATESRO #### [facility] [address] [place] [address] Dr. Eran Chacon Urobilinogen Qn (U) 0.2 {Aureliano'U}/dL Normal 0.2 - 1.0 [facility] Comment on above: Performed By: #### Med SHER UMICRO #### [facility] [address] [place] [address] Dr. Eran Chacon PROF 14(COMP METB)on 022 Albumin [Mass/Vol] 4.0 g/dL Normal 3.4-5.0 [facility] Comment on above: Performed By: #### C MP #### [facility] [address] [place] [address] Dr. Eran Chacon Albumin/Globulin [Mass ratio] 1.2 {ratio} Normal [facility] Comment on above: Performed By: #### C MP #### [facility] [address] [place] [address] Dr. Eran Chacon ALP [Catalytic activity/Vol] 104 U/L Normal 46-116 [facility] Comment on above: Performed By: #### C MP #### [facility] [address] [place] [address] Dr. Eran Chacon ALT [Catalytic activity/Vol] 28 U/L Normal 16-63 [facility] Comment on above: Performed By: #### C MP #### [facility] [address] [place] [address] Dr. Eran Chacon Anion gap [Moles/Vol] 7.2 mmol/L Normal [facility] Comment on above: Performed By: #### C MP #### [facility] [address] [address] [address] Eran Chacon AST [Catalytic activity/Vol] 14 U/L Critically low 15-37 [facility] Comment on above: Performed By: #### C MP #### [facility] [address] [address] [address] Eran Chacon Bilirubin [Mass/Vol] 0.4 mg/dL Normal 0.2-1.0 [facility] Comment on above: Performed By: #### C MP #### [facility] [address] [place] [address] Dr. Eran Chacon Calcium [Mass/Vol] 9.0 mg/dL Normal 8.5-10.1 [facility] Comment on above: Performed By: #### C MP #### [facility] [address] [place] [address] Dr. Eran Chacon Chloride [Moles/Vol] 103 mmol/L Normal 98-107 [facility] Comment on above: Performed By: #### C MP #### [facility] [address] [place] [address] Dr. Eran Chacon CO2 [Moles/Vol] 30.0 mmol/L Normal 21.0-32.0 [facility] Comment on above: Performed By: #### C MP #### [facility] [address] [place] [address] Dr. Eran Chacon Creatinine [Mass/Vol] 0.85 mg/dL Normal 0.70-1.30 [facility] Comment on above: Performed By: #### C MP #### [facility] [address] [place] [address] Dr. Eran Chacon EGFR-AF CENTRAL AFRICAN >60 Normal >=60 [facility] Comment on above: Performed By: #### C MP #### [facility] [address] [address] [address] Eran Chacon EGFR-NON AF CENTRAL AFRICAN >60 Normal >=60 [facility] Comment on above: Performed By: #### C MP #### [facility] [address] [address] [address] Eran Chacon Globulin (S) [Mass/Vol] 3.3 g/dL Normal [facility] Comment on above: Performed By: #### C MP #### [facility] [address] [address] [address] Eran Chacon Glucose [Mass/Vol] 165 mg/dL Critically high 74-106 [facility] Comment on above: Performed By: #### C MP #### [facility] [address] [address] [address] Eran Chacon Potassium [Moles/Vol] 4.2 mmol/L Normal 3.5-5.1 [facility] Comment on above: Performed By: #### C MP #### [facility] [address] [address] [address] Eran Chacon Protein [Mass/Vol] 7.3 g/dL Normal 6.4-8.2 [facility] Comment on above: Performed By: #### C MP #### [facility] [address] [address] [address] Eran Chacon Sodium [Moles/Vol] 136 mmol/L Normal 136-145 [facility] Comment on above: Performed By: #### C MP #### [facility] [address] [address] [address] Eran Chacon Urea nitrogen [Mass/Vol] 10.0 mg/dL Normal 7.0-18.0 [facility] Comment on above: Performed By: #### C MP #### [facility] [address] [address] [address] Eran Chacon Urea nitrogen/Creatini ne [Mass ratio] 11.8 mg/mg Normal [facility] Comment on above: Performed By: #### C MP #### [facility] [address] [place] [address] Dr. Eran Chacon URINE MICROSCOPIC ONLYon BACTERIA NONE SEEN Normal NONE SEEN [facility] Comment on above: Performed By: #### Med SHER UMICRO #### [facility] [address] [place] [address] Dr. Eran Chacon Bacteria identified Cx Nom (U) NOT INDICATED Normal [facility] Comment on above: Performed By: #### Med SHER UMICRO #### [facility] [address] [place] [address] Dr. Eran Chacon CAST NONE SEEN Normal NONE SEEN [facility] Comment on above: Performed By: #### Med SHER UMICRO #### [facility] [address] [place] [address] Dr. Eran Chacon Crystals LM Nom (Urine sed) NONE SEEN Normal NONE SEEN [facility] Comment on above: Performed By: #### Med SHER UMICRO #### [facility] [address] [place] [address] Dr. Eran Chacon Epithelial cells LM Ql (Urine sed) RARE Normal NONE SEEN /RARE [facility] Comment on above: Performed By: #### Med SHER UMICRO #### [facility] [address] [place] [address] Dr. Eran Chacon MUCOUS NONE SEEN Normal NONE SEEN [facility] Comment on above: Performed By: #### Med SHER UMICRO #### [facility] [address] [place] [address] Dr. Eran Chacon RBC 0-2 Normal 0-2 [facility] Comment on above: Performed By: #### Med SHER UMICRO #### [facility] [address] [place] [address] Dr. Eran Chacon WBC 2-5 Abnormal NONE SEEN [facility] Comment on above: Performed By: #### Med SHER UMICRO #### [facility] [address] [place] [address] Dr. Eran Chacon MRI SHOULDER LT WO [...] YEISON NAVAS Date: 2022-02-02 17:09 Normal [facility] XR shoulder LT min 2V*on XR shoulder LT min 2V* [facility] [employer] [address] [place] [address] XRay Report Signed Patient: Eric Craig MR#: [id number] : [id number] Acct:[id number] Age/Sex: 61 / M ADM Date: 01/25/22 Loc: [facility] Room: Type: [facility] CLI Attending Dr: Kesha Trujillo MD Ordering Provider: [...] Otilia Nunez M.D.01/25/2022 11:41 AM Dictation Location: [place] [address] Transcribed By: [facility] 01/25/22 1141 Dictated By: Otilia Nunez MD 01/25/22 1139 Signed By: 01/25/22 1141 [facility] Vital Signs Date Time Vital Sign Value Performing Clinician Facility 08-13-2023 10:30-0500 Body height 175.26 cm Hannah Magallanes Other [facility] Other 08-13-2023 10:30-0500 Body mass index (BMI) [Ratio] 33.9 kg/m2 Hannah Magallanes Other [facility] [facility] [employer] Other 08-13-2023 10:30-0500 Body weight 104.15 kg Hannah Magallanes Other [facility] [facility] Other 08-13-2023 10:30-0500 Diastolic blood pressure 78 mm[Hg] Hannah Magallanes Other [facility] [facility] Other 08-13-2023 10:30-0500 Systolic blood pressure 124 mm[Hg] Hannah Magallanes Other [facility] [facility] Other 06-25-2023 08:45-0500 Body height 175.26 cm Hannah Magallanes Other [facility] [facility] Other 06-25-2023 08:45-0500 Body mass index (BMI) [Ratio] 33.37 kg/m2 Hannah Magallanes Other [facility] [facility] Other 06-25-2023 08:45-0500 Body temperature 96.5 [degF] Hannah Magallanes Other [facility] [facility] Other 06-25-2023 08:45-0500 Body weight 102.51 kg Hannah Magallanes Other [employer] Other 06-25-2023 08:45-0500 Diastolic blood pressure 85 mm[Hg] Hannah Magallanes Other [employer] Other 06-25-2023 08:45-0500 Systolic blood pressure 149 mm[Hg] Hannah Magallanes Other [employer] Other 05-28-2023 10:45-0400 Body height 175.26 cm Hannah Magallanes Other [employer] Other 05-28-2023 10:45-0400 Body mass index (BMI) [Ratio] 33.52 kg/m2 Hannah Magallanes Other [employer] Other 05-28-2023 10:45-0400 Body weight 102.97 kg Hannah Magallanes Other [employer] Other 05-28-2023 10:45-0400 Diastolic blood pressure 82 mm[Hg] Hannah Magallanes Other [employer] Other 10-10-2023 10:45-0400 Systolic blood pressure 147 mm[Hg] Hannah Magallanes Other [employer] Other 2023 08:45-0400 Body height 175.26 cm Hannah Magallanes Other [employer] Other 2023 08:45-0400 Body mass index (BMI) [Ratio] 33.52 kg/m2 Hannah Magallanes Other [employer] Other 2023 08:45-0400 Body weight 102.97 kg Hannah Magallanes Other [employer] Other 2023 08:45-0400 Diastolic blood pressure 85 mm[Hg] Hannah Magallanes Other [employer] Other 2023 08:45-0400 Systolic blood pressure 156 mm[Hg] Hannah Magallanes Other [employer] Other 04-30-2023 09:45-0400 Body height 175.26 cm Hannah Magallanes Other [employer] Other 04-30-2023 09:45-0400 Body mass index (BMI) [Ratio] 34.32 kg/m2 Hannah Magallanes Other [employer] Other 04-30-2023 09:45-0400 Body temperature 96.2 [degF] Hannah Magallanes Other [employer] Other 04-30-2023 09:45-0400 Body weight 105.42 kg Hannah Magallanes Other [employer] Other 04-30-2023 09:45-0400 Diastolic blood pressure 78 mm[Hg] Hannah Magallanes Other [employer] Other 04-30-2023 09:45-0400 Respiratory rate 16 /min Hannah Magallanes Other [employer] Other 04-30-2023 09:45-0400 Systolic blood pressure 146 mm[Hg] Hannah Magallanes Other [employer] Other 02-20-2023 09:15-0400 Body height 175.26 cm Hannah Magallanes Other [employer] Other 02-20-2023 09:15-0400 Body mass index (BMI) [Ratio] 33.46 kg/m2 Hannah Magallanes Other [employer] Other 02-20-2023 09:15-0400 Body weight 102.79 kg Hannah Magallanes Other [employer] Other 02-20-2023 09:15-0400 Diastolic blood pressure 77 mm[Hg] Hannah Magallanes Other [employer] Other 02-20-2023 09:15-0400 Systolic blood pressure 131 mm[Hg] Hannah Magallanes Other [employer] Other 01-17-2023 08:45-0400 Body height 175.26 cm Hannah Magallanes Other [employer] Other 01-17-2023 08:45-0400 Body mass index (BMI) [Ratio] 33.37 kg/m2 Hannah Magallanes Other [employer] Other 01-17-2023 08:45-0400 Body weight 102.51 kg Hannah Magallanes Other [employer] Other 01-17-2023 08:45-0400 Diastolic blood pressure 79 mm[Hg] Hannah Magallanes Other [employer] Other 01-17-2023 08:45-0400 Systolic blood pressure 128 mm[Hg] Hannah Magallanes Other [employer] Other 11-23-2022 09:30-0400 Body height 175.26 cm Hannah Magallanes Other [employer] Other 11-23-2022 09:30-0400 Body mass index (BMI) [Ratio] 33.96 kg/m2 Hannah Magallanes Other [employer] Other 11-23-2022 09:30-0400 Body weight 104.33 kg Hannah Magallanes Other [employer] Other 11-23-2022 09:30-0400 Diastolic blood pressure 72 mm[Hg] Hannah Magallanes Other [employer] Other 11-23-2022 09:30-0400 Systolic blood pressure 122 mm[Hg] Hannah Magallanes Other [employer] Other 09-04-2022 11:30-0500 Body height 175.26 cm Hannah Magallanes Other [employer] Other 09-04-2022 11:30-0500 Body mass index (BMI) [Ratio] 33.52 kg/m2 Hannah Magallanes Other [employer] Other 09-04-2022 11:30-0500 Body weight 102.97 kg Hannah Magallanes Other [employer] Other 09-04-2022 11:30-0500 Diastolic blood pressure 80 mm[Hg] Hannah Magallanes Other [employer] Other 09-04-2022 11:30-0500 SaO2% (BldA) [Mass fraction] 95 % Hannah Sona Other [employer] Other 09-04-2022 11:30-0500 Systolic blood pressure 122 mm[Hg] Hannah Sona Other [employer] Other 02-06-2022 12:45-0400 Body height 175.26 cm Kesha Olexa Other [employer] Other 02-06-2022 12:45-0400 Body mass index (BMI) [Ratio] 31.01 kg/m2 Kesha Olexa Other [employer] Other 02-06-2022 12:45-0400 Body weight 95.26 kg Kesha Olexa Other [employer] Other 05-26-2021 13:15-0400 Body height 175.26 cm Harriet Ginty Other [employer] Other 05-26-2021 13:15-0400 Body mass index (BMI) [Ratio] 31.01 kg/m2 Harriet Ginty Other [employer] Other 05-26-2021 13:15-0400 Body temperature 98.3 [degF] Harriet Ginty Other [employer] Other 05-26-2021 13:15-0400 Body weight 95.26 kg Harriet Ginty Other [employer] Other 05-26-2021 13:15-0400 SaO2% (BldA) [Mass fraction] 96 % Harriet Ginty Other [employer] Other Encounters Encounter Date Encounter Type Care Provider Facility Start: 09-06-2023 End: 09-06-2023 ambulatory Hannah Magallanes Other [employer] Other Start: 09-06-2023 Telephone encounter Hannah Magallanes [facility] Start: 09-02-2023 End: 09-02-2023 ambulatory JIN POCOS Not Available Start: 08-20-2023 End: 08-20-2023 ambulatory Hannah Magallanes Other [employer] Other Start: 08-20-2023 Telephone encounter Hannah Magallanes [facility] Start: 08-13-2023 End: 08-13-2023 ambulatory Hannah Magallanes Other [employer] Other Start: 08-13-2023 Office outpatient vi sit 25 minutes Hannah Magallanes [facility] Start: 08-13-2023 Telephone encounter Hannah Magallanes [facility] Start: 08-06-2023 End: 08-06-2023 ambulatory Hannah Magallanes Other [employer] Other Start: 08-06-2023 Telephone encounter Hannah Magallanes [facility] Start: 07-29-2023 End: 07-29-2023 ambulatory JIN POCOS Not Available Start: 07-22-2023 End: 07-22-2023 ambulatory Hannah Magallanes Other [employer] Other Start: 07-22-2023 Telephone encounter Hannah Magallanes [facility] Start: 07-19-2023 End: 07-19-2023 ambulatory Hannah Magallanes Other [employer] Other Start: 07-19-2023 Telephone encounter Hannah Magallanes [facility] Start: 07-18-2023 End: 07-18-2023 ambulatory Hannah Magallanes Other [employer] Other Start: 07-18-2023 Telephone encounter Hannah Magallanes [facility] Start: 07-02-2023 End: 07-02-2023 ambulatory Hannah Magallanes Other [employer] Other Start: 07-02-2023 Office outpatient vi sit 15 minutes Hannah Magallanes [facility] Start: 07-02-2023 Telephone encounter Hannah Magallanes [facility] Start: 06-25-2023 End: 06-25-2023 ambulatory Hannah Magallanes Other [employer] Other Start: 06-25-2023 Office outpatient vi sit 15 minutes Hannah Magallanes [facility] Start: 06-21-2023 End: 06-21-2023 ambulatory Hannah Magallanes Other [employer] Other Start: 06-21-2023 Encounter by edmond r brayden Hannah Magallanes [facility] Start: 06-20-2023 End: 06-20-2023 ambulatory Hannah Magallanes Other [employer] Other Start: 06-20-2023 Telephone encounter Hannah Magallanes [facility] Start: 06-17-2023 End: 06-17-2023 ambulatory Hannah Magallanes Other [employer] Other Start: 06-17-2023 Telephone encounter Hannah Magallanes [facility] Start: 06-10-2023 End: 06-10-2023 ambulatory Hannah Magallanes Other [employer] Other Start: 06-10-2023 Telephone encounter Hannah Magallanes [facility] Start: 06-03-2023 End: 06-03-2023 ambulatory Hannah Magallanes Other [employer] Other Start: 06-03-2023 Telephone encounter Hannah Magallanes [facility] Start: 05-30-2023 End: 05-31-2023 ambulatory Barbie Tellez Pocos Facility[place] Start: 05-30-2023 End: 05-30-2023 Patient encounter procedure Barbie Jesus [facility] Start: 05-28-2023 End: 05-28-2023 ambulatory Hannah Magallanes Other [employer] Other Start: 05-28-2023 Office outpatient vi sit 15 minutes Hannah Magallanes [facility] Start: 2023 End: 2023 ambulatory Hannah Magallanes Other [employer] Other Start: 2023 Office outpatient vi sit 15 minutes Hannah Magallanes [facility] Start: 05-16-2023 End: 05-16-2023 ambulatory Hannah Magallanes Other [employer] Other Start: 05-16-2023 Telephone encounter Hannah Magallaens [facility] Start: 04-30-2023 End: 04-30-2023 ambulatory Hannah Magallanes Other [employer] Other Start: 04-30-2023 Office outpatient vi sit 15 minutes Hannah Magallanes [facility] Start: 04-26-2023 End: 04-26-2023 ambulatory Hannah Magallanes Other [employer] Other Start: 04-26-2023 Telephone encounter Hannah Magallanes [facility] Start: 04-23-2023 End: 04-23-2023 ambulatory Hannah Magallanes Other [employer] Other Start: 04-23-2023 Telephone encounter Hannah Sona [facility] Start: 03-25-2023 End: 03-25-2023 ambulatory Hannah Magallanes Other [employer] Other Start: 03-25-2023 Telephone encounter Hannah Magallanes [facility] Start: 03-06-2023 End: 03-06-2023 ambulatory Hannah Magallanes Other [employer] Other Start: 03-06-2023 Telephone encounter Hannah Magallanes [facility] Start: 02-20-2023 End: 02-20-2023 ambulatory Hannah Magallanes Other [employer] Other Start: 02-20-2023 Office outpatient vi sit 25 minutes Hannah Magallanes [facility] Start: 02-05-2023 End: 02-05-2023 ambulatory Hannah Magallanes Other [employer] Other Start: 02-05-2023 Telephone encounter Hannah Magallanes [facility] Start: 01-21-2023 End: 01-21-2023 ambulatory Hannah Magallanes Other [employer] Other Start: 01-21-2023 Telephone encounter Hannah Magallanes [employer] [facility] Start: 01-17-2023 End: 01-17-2023 ambulatory Hannah Magallanes Other [employer] Other Start: 01-17-2023 Office outpatient vi sit 15 minutes Hannah Magallanes [facility] Start: 12-24-2022 End: 12-24-2022 ambulatory Hannah Magallanes Other [employer] Other Start: 12-24-2022 Telephone encounter Hannah Magallanes [facility] Start: 12-03-2022 End: 12-03-2022 ambulatory Hannah Magallanes Other [employer] Other Start: 12-03-2022 Telephone encounter Hannah Magallanes [facility] Start: 11-27-2022 End: 11-27-2022 ambulatory Hannah Magallanes Other [employer] Other Start: 11-27-2022 Telephone encounter Hannah Magallanes [facility] Start: 11-26-2022 End: 11-26-2022 ambulatory Hannah Magallanes Other [employer] Other Start: 11-26-2022 Telephone encounter Hannah Magallanes [facility] Start: 11-24-2022 End: 11-25-[address] HANNAH MAGALLANES Facility:[facility] Start: 11-23-2022 End: 11-23-2022 ambulatory Hannah Magallanes Other [employer] Other Start: 11-23-2022 Office outpatient vi sit 15 minutes Hannah Magallanes [facility] Start: 11-05-2022 End: 11-05-2022 ambulatory Hannah Magallanes Other [employer] Other Start: 11-05-2022 Telephone encounter Hannah Magallanes [facility] Start: 10-03-2022 End: 10-03-2022 ambulatory Hannah Magallanes Other [employer] Other Start: 10-03-2022 Telephone encounter Hannah Magallanes [facility] Start: 09-04-2022 End: 09-04-2022 ambulatory Hannah Magallanes Other [employer] Other Start: 09-04-2022 Office outpatient vi sit 25 minutes Hannah Magallanes [facility] Start: 07-26-[address] HANNAH MAGALLANES Facil ity:[facility] Start: 07-19-2022 End: 07-20-[address] WILFREDO ENGLE Facility:[facility] Start: 06-07-2022 End: 06-07-[address] HANNAH MAGALLANES Facility:[facility] Start: 03-15-2022 ambulatory KESHA TRUJILLO Facility:[facility] Start: 02-06-2022 End: 02-06-2022 ambulatory Kesha Trujillo Other [employer] Other Start: 02-06-2022 Office outpatient vi sit 25 minutes Kesha Olemartin [facility] Start: 02-02-2022 End: 02-03-2022 ambulatory KESHA OLEXA Facility:[facility] Start: 12-28-2021 End: 12-28-[address] HANNAH MAGALLANES Facility:[facility] Start: 12-12-2021 End: 12-13-2021 ambulatory KESHA TRUJILLO [employer] Other Start: 12-12-2021 Office outpatient ne w 30 minutes Kesha Trujillo [facility] [place] Start: 05-26-2021 Office outpatient vi sit 15 minutes Harriet Ginty [facility] Procedures Date Procedure [...] Immunization Date Immunization Notes Care Provider Fa cili 05-17-2017 influenza virus vaccine, split virus (incl. purified surface antigen) Hannah Magallanes Other [employer] Other 06-28-2016 tetanus and diphther ia toxoids, adsorbed, preservative free, for adult use (5 Lf of tetanus toxoid and 2 Lf of diphtheria toxoid) Hannah Magallanes Other [employer] Other 05-25-2015 tetanus and diphther ia toxoids, adsorbed, preservative free, for adult use (5 Lf of tetanus toxoid and 2 Lf of diphtheria toxoid) Hannah Magallanes Other [employer] Other Payers Date Payer Category Payer Unknown [id number] 2.16.84 [id number] 1960 Unknown [id number] 2.16.84 [id number] 1960 Unknown [id number] 2.16.84 [id number] 1960 Unknown [id number] 2.16.84 [id number] 1960 Unknown [id number] 2.16.84 [id number] 1960 Unknown [id number] 2.16.84 [id number] 1960 Unknown [id number] 2.16.84 [id number] 1960 Unknown [id number] 2.16.84 [id number] 1960 Unknown [id number] 2.16.8 [id number] 1960 Unknown [id number] 2.16.84 [id number] 1960 Unknown [id number] 2.16.84 [id number] 1960 Unknown [id number] 2.16.840 .[id number] 1959 Medicaid [id number] 2. [id number] 1959 Medicare [id number] 2.1 [id number] Social History Date Type Detail Facility Sex Assigned At [facility] Tobacco smoking status No Smoking Status Entered [facility] Medical Equipment Procedure Code Equipment Code Equipment Original Text Equi pment Identifier Dates Accu-Chek [employer] Lancet - Clinical Notes 05-26-2021 to 09-06-2023 Note Date & Type Note Facility 09-06-2023 Evaluation note Encounter Date Diagnosis Assessment Notes Aug, Lumbar radicular pain (ICD-10 - M54.16) [employer] Other 12-26-2023 Evaluation note* Encounter Date Diagnosis Assessment Notes Treatment Notes Treatment Clinical Notes Jul, Type 2 diabetes mellitus with hyperglycemia, without long-term current use of insulin (ICD-10 - E11.65) [employer] Other 12-26-2023 Evaluation note* Encounter Date Diagnosis Assessment Notes [...] T3s after shoulder pain has improved post-operatively. [employer] Other 12-04-2023 Evaluation note* Encounter Date Diagnosis Assessment Notes Treatment Notes Treatment Clinical Notes Jul, Type 2 diabetes mellitus with hyperglycemia, without long-term current use of insulin (ICD-10 - E11.65) [employer] Other 12-01-2023 Evaluation note* Encounter Date Diagnosis Assessment Notes Treatment Notes Treatment Clinical Notes Jul, Type 2 diabetes mellitus with hyperglycemia, without long-term current use of insulin (ICD-10 - E11.65) [employer] Other 11-30-2023 Evaluation note* Encounter Date Diagnosis Assessment Notes Treatment Notes Treatment Clinical Notes Jun, Labral tear of shoulder, right, subsequent encounter (ICD-10 - S43.431D) [employer] Other 11-14-2023 Evaluation note* Encounter Date Diagnosis [...] pain (ICD-10 - R07.9) r/o cardiac cause [employer] Other 11-07-2023 Evaluation note* Encounter Date Diagnosis [...] to decrease dose and possibly discontinue medication. [employer] Other 11-02-2023 Evaluation note* Encounter Date Diagnosis Assessment Notes Treatment Notes Treatment Clinical Notes Jun, Acute pain of right shoulder (ICD-10 - M25.511) [employer] Other 10-30-2023 Evaluation note* Encounter Date Diagnosis Assessment Notes Treatment Notes Treatment Clinical Notes May, Acute pain of right shoulder (ICD-10 - M25.511) [employer] Other 10-23-2023 Evaluation note* Encounter Date Diagnosis Assessment Notes Treatment Notes Treatment Clinical Notes May, Acute pain of right shoulder (ICD-10 - M25.511) [employer] Other 10-16-2023 Evaluation note* Encounter Date Diagnosis Assessment Notes Treatment Notes Treatment Clinical Notes May, Acute pain of right shoulder (ICD-10 - M25.511) [employer] Other 10-10-2023 Evaluation note* Encounter Date Diagnosis Assessment Notes Treatment Notes Treatment Clinical Notes May, Acute pain of right shoulder (ICD-10 - M25.511) MRI and surgery planning pending. Pt understands this is a controlled substance and to call in 1 week w update on treatment plan. May, Bronchitis (ICD-10 - J40) Finish antibiotic, rest, hydrate Steroids for wheezing. [employer] Other 10-04-2023 Evaluation note* Encounter Date Diagnosis Assessment Notes Treatment Notes Treatment Clinical Notes May, Acute pain of right shoulder (ICD-10 - M25.511) Reviewed [facility] and discussed short term plan of increase in pain medication. He is due for a refill of the T3s presently. Stop them, replace w norco. Pt understands weekly prescription and will need to d/c after anticipated surgery. [employer] Other 09-12-2023 Evaluation note* Encounter Date Diagnosis [...] office and the ER visit on 04/26 [employer] Other 07-05-2023 Evaluation note* Encounter Date Diagnosis [...] and will need less prn pain med. [employer] Other 06-01-2023 Evaluation note* Encounter Date Diagnosis Assessment Notes Treatment Notes Treatment Clinical Notes Jan, RUQ pain (ICD-10 - R10.11) Discussed differential. continues to decline c-scope. start w labs and GBUS. Jan, Other chronic pain (ICD-10 - G89.29) Jan, Pain in right shoulder (ICD-10 - M25.511) Pt requests referral to Dr. Edin parsons for intrarticular injections. Jan, Pain in left shoulder (ICD-10 - M25.512) as above. [employer] Other 04-17-2023 Evaluation note* Encounter Date Diagnosis Assessment Notes Treatment Notes Treatment Clinical Notes Nov, Bronchitis (ICD-10 - J40) [employer] Other 04-11-2023 Evaluation note* Encounter Date Diagnosis Assessment Notes Treatment Notes Treatment Clinical Notes Nov, Disc degeneration, lumbar (ICD-10 - M51.36) Nov, Lumbar radicular pain (ICD-10 - M54.16) [employer] Other 04-07-2023 Evaluation note* Encounter Date Diagnosis [...] quit smoking. Pt verbalizes understanding and agreement. [employer] Other 02-15-2023 Evaluation note* Encounter Date Diagnosis Assessment Notes Treatment Notes Treatment Clinical Notes Sep, Lumbar radicular pain (ICD-10 - M54.16) [employer] Other 01-17-2023 Evaluation note* Encounter Date Diagnosis [...] is outlined on the test result page. [employer] Other 10-20-2022 NoteIndication: Calculus in kidney. Comparison: [...] by: JOHN PINTO Date: 2022-06-07 20:07[facility]06-21-2022 Evaluation note* Encounter Date Diagnosis Assessment [...] of infection, hardware pullout, cuff repair failure, residential pain and stiffness are well known problems [...] of repair, infection and wound healing delays. [employer] Other 04-26-2022 NotePROCEDURE: XR SHOULDER LT 2V or > COMPARISON: None. HISTORY: Pain of left shoulder joint FINDINGS: BONES:No acute fracture or dislocation. 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 No visible soft tissue swelling. EFFUSION:None visible. OTHER: Negative. IMPRESSION: Mild osteoarthritis Electronically authenticated by: BARBIE MEMBRENO Date: 2021-12-12 15:[address] [place], [place] [id number] Evaluation note* Encounter Date Diagnosis Assessment Notes [...] pain of left shoulder (ICD-10 - M25.512) [employer] Other 10-08-2021 Evaluation note* Encounter Date Diagnosis [...] as needed for cough. Advised patient that [place] contains antihistamine and cough suppressant and to be cautious using other OTC cold medications. Patient to follow up with PCP if symptoms do not improve. Immediate eval if SOB, difficulty breathing, chest pain, dizziness, or other concerning symptoms. 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 Surgical History carpal tunnel release 2016 Surgical History tonsillectomy Hospitalization History 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 Hospitalization History pneumonia [facility] [employer] Other Hospital Discharge instructions No data available for this section [facility] No data available for this section [facility] Summary Purpose Family History No Family [...] 1 Epigastric abdominal pain (R10.13) Referral Organization [facility] [employer] Referring Provider First Name Hannah Referring Provider Last Name Sona Referring Provider Specialty Family [facility] cine Referred Organization [facility] Referred Provider Sai Martinez Referred Address ,[place], [place],[address] Referred Provider Specialty Surgery Referral Priority Routine General Notes Es Camilo 11:38:02 AM >received today, attachments made, notes locked, referral faxed Reason 01/28/23 Access Or tho - B shoulder pain L>R - hopes for injections. Diagnosis 1 Pain in right should er (M25.511) Referral Organization [facility] [employer] Referring Provider First Name Hannah Referring Provider Last Name Sona Referring Provider Specialty [facility] Referred Organization [facility] Referred Provider Barbie Jesus Referred Address ,[place], [place],[address] Referred Provider Specialty Orthopaedic Surgery Referral Priority [...] in right should er (M25.511) [facility] Referring Provider First Name Hannah Referring Provider Last Name Sona Referring Provider Specialty [facility] Referred Organization [facility] Referred Provider Barbie Jesus Referred Address ,[place], [place],[address] Referred Provider Specialty Orthopaedic Surgery Referral Priority [...] painrefillNo InformationNo Informationrefillsurgery - pain management planpreop clearencemedicationrefill (unrecognized sect ion and content) No Status Records FoundNo Status Records FoundNo Status Records FoundNo Status Records Found INFORMATION SOURCE (unrecogn ized section and content) DATE CREATED AUTHOR 02/10/2022 [facility] DATE CREATED AUTHOR AUTHOR'S ORGANIZ ATION 12/04/2022 [facility] DATE CREATED AUTHOR AUTHOR'S ORGANIZ ATION 06/01/2023 Sargent Gagan [facility] DATE CREATED AUTHOR AUTHOR'S ORGANIZ ATION 09/02/2023 [facility] EPIC Patient Care team informatio n (unrecognized section and content) Personnel Name: HANNAH MAGALLANES MD Address: Address: [address] [place] [address] FOR RECORDS PERTAINING TO PATIENTS WHO ARE [...] BE BASED ON THE PRIMARY CLINICAL RECORDS. [facility]. provides no warranty or guarantee of the accuracy or completeness of information in this document.
--- NOTE | 2023-09-08 19:27 | XR_ITS ---
The [address] [address] Patient Name: ERIC CRAIG MRN: [id number] date: 1960 Sex: M Assigned Patient Location: ER Current Patient Location: ED.MAIN Accession/Order Number: [id number] Exam Date: 09/08/2023 19:42 Report Date: 09/08/2023 20:25 At the request of: UMAIR COOPER Procedure: XR chest 1V EXAM: XR chest 1V HISTORY: short of breath COMPARISON: None. TECHNIQUE: Single view of the chest FINDINGS: [Size normal. No focal consolidation, pleural effusion, pulmonary congestion or pneumothorax. XR/XR chest 1V IMPRESSION: No acute findings. Electronically authenticated by: GRACIA STEEL Date: 09/08/2023 20:25
[2023-09-08 19:34] LABS: Basophils Percent Auto 0.4 % (0.2-2.0); Hematocrit 44.5 % (42.0-54.0); Hemoglobin 14.7 g/dL (14.0-18.0); Immature Granulocytes Abs Auto 0.03 10^3/uL (0.00-0.03); Immature Granulocytes Pct Auto 0.3 % (0.0-0.5); Lymphocytes Absolute Auto 0.9 10^3/uL (1.2-3.8); Lymphocytes Percent Auto 8.9 % (20.5-60.0); Mean Corpuscular Hemoglobin 29.3 pg (25.9-34.0); Mean Corpuscular Volume 88.6 fL (80.0-94.0); Mean Platelet Volume 8.7 fL (9.5-13.5); Monocytes Absolute Auto 1.5 10^3/uL (0.3-0.8); Monocytes Percent Auto 15.1 % (1.7-12.0); Neutrophils Absolute Auto 7.2 10^3/uL (1.4-6.5); Neutrophils Percent Auto 75.3 % (43.0-75.0); Platelet Count 306 10^3/uL (150-450); Red Blood Count 5.02 10^6/uL (4.70-6.10); Red Cell Distribution Width 13.2 % (11.0-15.0); White Blood Count 9.6 10^3/uL (4.0-11.0)
--- NOTE | 2023-09-08 19:34 | ED.SOB1 ---
HPI - SOB/Dyspnea General Chief Complaint: Shortness of Breath/Dyspnea Stated Complaint: Shortness of Breath Time Seen by Provider: 09/08/23 19:21 Source: patient Mode of arrival: ambulance Limitations: no limitations History of Present Illness HPI Narrative: patient daily smoker. States he has not smoked in 3 days. Presents with fever and shortness of breath. State he had chest pain earlier today. He is nauseated. cough is dry. No abdominal pain or diarrhea. Related Data Home Medications Medication Instructions Recorded Confirmed glipizide 5 mg-metformin 500 mg 1 tab PO DAILY 08/23/23 09/08/23 tablet atorvastatin 20 mg tablet 20 mg PO DAILY 09/08/23 09/08/23 docusate sodium 100 mg capsule 100 mg PO BID 09/08/23 09/08/23 lancets (Accu-Chek Fastclix Lancet 09/08/23 09/08/23 Drum) tizanidine 4 mg tablet 2 mg PO DAILY 09/08/23 09/08/23 Allergies Allergy/AdvReac Type Severity Reaction Status Date / Time ibuprofen [From Motrin] AdvReac Mild Verified 09/08/23 19:17 IV dye Allergy Uncoded 09/08/23 19:17 Review of Systems ROS Status of ROS 10 or more systems reviewed and unremarkable except as noted in history and below [facility] PFS Social History Smoking status: Current every day smoker Exam Constitutional Vital Signs, click to edit/add: Last Vital Signs Temp 99.8 F 09/08/23 20:42 Pulse 104 H 09/08/23 21:00 Resp 27 H 09/08/23 21:00 BP 155/82 H 09/08/23 21:00 Pulse Ox 93 L 09/08/23 21:00 O2 Del Method Nasal Cannula 09/08/23 19:59 O2 Flow Rate 2 09/08/23 19:59 Common normals: no apparent distress, average body habitus, oriented x3, no limitations, healthy appearing, alert and well nourished [facility] Common normals: normocephalic and head/scalp atraumatic Eye Common normals: PERRL, EOMs intact bilaterally and conjunctivae normal Chest Common normals: inspection of chest normal and palpation of chest normal Respiratory Common normals: normal respiratory effort Effort & inspection: symmetric chest movement, labored (mild) and audible wheezes Cardio Common normals: S1 normal heart sound and S2 normal heart sound Rate: tachycardic GI Common normals: Normal to inspection, nondistended, normoactive bowel sounds present, soft to palpation and non-tender Extremity Common normals: normal to inspection and full ROM Neuro Common normals: oriented x3, CN's II-XII intact bilaterally, moves all extremities and no focal motor deficits Psych Appearance: grossly normal Course Vital Signs Vital signs: Vital Signs Temperature 100.4 F 09/08/23 19:17 Pulse Rate 109 H 09/08/23 19:17 Respiratory Rate 22 09/08/23 19:17 Blood Pressure 164/84 H 09/08/23 19:17 Pulse Oximetry 92 L 09/08/23 19:17 Oxygen Delivery Method Room Air 09/08/23 19:17 Temperature 99.8 F 09/08/23 20:42 Pulse Rate 104 H 09/08/23 21:00 Respiratory Rate 27 H 09/08/23 21:00 Blood Pressure 155/82 H 09/08/23 21:00 Pulse Oximetry 93 L 09/08/23 21:00 Oxygen Delivery Method Nasal Cannula 09/08/23 19:59 Oxygen Delivery Flow Rate 2 09/08/23 19:59 MDM - SOB/Dyspnea MDM Narrative Medical decision making narrative: history of COPD. presents with low grade fever and dyspnea. Exam with diffuse mild exp wheeze. Patient received Duoneb enroute via Squad. RA pulse ox 91% on arrival and patient in mild distress. Patient treated with solumedrol and another duoneb. cxray clear. Cardiac enzymes neg. WBC normal. RBS 180s. swab postive for influenza. Patient re examined and still has diffuse mild wheeze. Discussed with the hospitalist and will plan obs admission Lab Data Labs: Lab Results 09/08/23 09/08/23 Range/Units 19:18 19:19 WBC 9.6 (4.0-11.0) 10^3/uL RBC 5.02 (4.70-6.10) 10^6/uL Hgb 14.7 (14.0-18.0) g/dL Hct 44.5 (42.0-54.0) % MCV 88.6 (80.0-94.0) fL MCH 29.3 (25.9-34.0) pg MCHC 33.0 (29.9-35.2) g/dL RDW 13.2 (11.0-15.0) % Plt Count 306 (150-450) 10^3/uL MPV 8.7 L (9.5-13.5) fL Neut % (Auto) 75.3 H (43.0-75.0) % Lymph % (Auto) 8.9 L (20.5-60.0) % [place] % (Auto) 15.1 H (1.7-12.0) % Eos % (Auto) 0.0 L (0.9-7.0) % Baso % (Auto) 0.4 (0.2-2.0) % Neut # (Auto) 7.2 H (1.4-6.5) 10^3/uL Lymph # (Auto) 0.9 L (1.2-3.8) 10^3/uL [place] # (Auto) 1.5 H (0.3-0.8) 10^3/uL Eos # (Auto) 0.0 (0.0-0.7) 10^3/uL Baso # (Auto) 0.0 (0.0-0.1) 10^3/uL Abs Immat Gran (auto) 0.03 (0.00-0.03) 10^3/uL Imm/Tot Granulo (auto) 0.3 (0.0-0.5) % Sodium 136 (136-145) mmol/L Potassium 3.7 (3.5-5.1) mmol/L Chloride 98 (98-107) mmol/L Carbon Dioxide 29.3 (21.0-32.0) mmol/L Anion Gap 12.4 BUN 13.0 (7.0-18.0) mg/dL Creatinine 1.04 (0.70-1.30) mg/dL Est GFR ( Amer) >60 (>=60) Est GFR (Non-Af Amer) >60 (>=60) BUN/Creatinine Ratio 12.5 Glucose 181 H (74-106) mg/dL Calcium 8.8 (8.5-10.1) mg/dL Troponin I High Sens 6.8 (4.0-76.1) pg/mL Adenovirus (PCR) Not detected (NOT DETECTE) C. pneumoniae DNA (PCR) Not detected (NOT DETECTE) Coronavirus Type OC43 Not detected (NOT DETECTE) Coronavirus Type HKU1 Not detected (NOT DETECTE) Coronavirus Type 229E Not detected (NOT DETECTE) Coronavirus Type NL63 Not detected (NOT DETECTE) Human Metapneumovir PCR Not detected (NOT DETECTE) Influenza A (H3) PCR Detected M. pneumoniae (PCR) Not detected (NOT DETECTE) Parainfluenza PCR Not detected (NOT DETECTE) Parainfluenza 2 (PCR) Not detected (NOT DETECTE) Parainfluenza 3 (PCR) Not detected (NOT DETECTE) Parainfluenza 4 (PCR) Not detected (NOT DETECTE) RSV (RT-PCR) Not detected (NOT DETECTE) Entero/Rhino (PCR) Not detected (NOT DETECTE) SARS-CoV-2 (PCR) Not detected (NOT DETECTE) Bordetella pertussis (PCR) Not detected (NOT DETECTE) B parapertussis DNA PCR Not detected (NOT DETECTE) Influenza Type B (PCR) Not detected (NOT DETECTE) Imaging Data Chest x-ray: Radiologist's impression: ITS Impressions Chest X-Ray 09/08/23 19:27 IMPRESSION: No acute findings. Electronically authenticated by: RGACIA STEEL Date: 09/08/2023 20:25 Discharge Plan Discharge Chief Complaint: Shortness of Breath/Dyspnea Clinical Impression: Acute bronchospasm, Acute exacerbation of chronic obstructive pulmonary disease (COPD), Influenza Prescriptions / Home Meds: No Action atorvastatin 20 mg tablet 20 mg PO DAILY docusate sodium 100 mg capsule 100 mg PO BID tizanidine 4 mg tablet 2 mg PO DAILY (DME) lancets [Accu-Chek Fastclix Lancet Drum] Misc MISCELLANEOUS glipizide-metformin 5-500 mg tablet 1 tab PO DAILY Referrals: Hannah Gallo MD [Primary Care Provider] - 1 week
[2023-09-08] MEDS: METHYLPREDNISOLONE SOD SUCC PF 125 MG/2 ML VIAL IVP (19:35)
[2023-09-08 19:49] LABS: Adenovirus NOT DETECTED (NOT DETECTE); Bordetella parapertussis NOT DETECTED (NOT DETECTE); Coronavirus 229E NOT DETECTED (NOT DETECTE); Coronavirus HKU1 NOT DETECTED (NOT DETECTE); Coronavirus NL63 NOT DETECTED (NOT DETECTE); Coronavirus OC43 NOT DETECTED (NOT DETECTE); Human Metapneumovirus NOT DETECTED (NOT DETECTE); Human Rhinovirus/Enterovirus NOT DETECTED (NOT DETECTE); Influenza B NOT DETECTED (NOT DETECTE); Mycoplasma pneumoniae NOT DETECTED (NOT DETECTE); Parainfluenza Virus 1 NOT DETECTED (NOT DETECTE); Parainfluenza Virus 2 NOT DETECTED (NOT DETECTE); Parainfluenza Virus 3 NOT DETECTED (NOT DETECTE); Parainfluenza Virus 4 NOT DETECTED (NOT DETECTE); Respiratory Syncytial Virus NOT DETECTED (NOT DETECTE); SARS-CoV-2 NOT DETECTED (NOT DETECTE)
[2023-09-08 19:49] LABS: Anion Gap 12.4; BUN Creatinine Ratio 12.5; Calcium 8.8 mg/dL (8.5-10.1); Carbon Dioxide 29.3 mmol/L (21.0-32.0); Chloride 98 mmol/L (98-107); Estimated GFR (African America >60 (>=60); Estimated GFR (Non-African Ame >60 (>=60); Glucose 181 mg/dL (74-106); Potassium 3.7 mmol/L (3.5-5.1); Sodium 136 mmol/L (136-145); Troponin I High Sensitivity 6.8 pg/mL (4.0-76.1)
[2023-09-08] MEDS: ONDANSETRON PF 4 MG/2 ML VIAL IV (19:51)
[2023-09-08] MEDS: IPRATROPIUM/ALBUTEROL SULFATE 3 ML AMPUL.NEB IH ×2 (19:59→23:17)
[2023-09-08 20:43] LABS: Influenza A\\H3 DETECTED
--- OUTSIDE RECORDS SUMMARY | 2023-09-08 22:01 | XMS_ITS | CCD ---
Author Name Unknown Address [address] [place] [address] Organization [facility] Care Team Providers Care Respiratory Care Faculty Name Role Phone Kesha Trujillo Unavailable Harriet Mo Unavailable Hannah Magallanes Unavailable SONA, DR HANNAH Jovel Admitting Unavailable MAGALLANES, DR HANNAH Jovel Attending Unavailable MAGALLANES, DR HANNAH Jovel Primary Care Unavailable MAGALLANES, DR HANNAH Jovel Consulting Unavailable TAVERAS, RUBI Consulting Unavailable OLEXA, KESHA Admitting Unavailable OLEXA, KESHA Attending Unavailable MAGALLANES, DR HANNAH Jovel Primary Care Unavailable [place], DR BARBIE Goldberg Consulting Unavailable OLEXA, KESHA Consulting Unavailable OLEXA, KESHA Admitting Unavailable OLEXA, KESHA Attending Unavailable MAGALLANES, DR HANNAH Jvoel Primary Care Unavailable MAGALLANES, DR HANNAH Jovel [...] Consulting Unavailable HANNAH MAGALLANES Primary Care Physician [phone] [place], Barbie Tellez Referring Unavailable Pocos, Barbie Tellez Attending Unavailable Pocos, Barbie Tellez Admitting Unavailable POCOS, BARBIE Tellez Attending Unavailable POCOS, BARBIE Tellez Referring Unavailable POCOS, BARBIE Tellez Attending Unavailable Allergies Allergy Classification Reported Allergen(s) Allergy Type Date of Onset Reaction(s) Facility (20 sources) [facility] olodaterol / tiotropium Drug Allergy shortness of breath [facility] Other (20 sources) CT Scan dye Propensity to adverse reactions [facility] Other (2 sources) Ibuprofen Drug Allergy 08-19-18 80 [facility] Repository (2 sources) Iodine (And Iodine Containting Drugs) Drug allergy (disorder) 09-07-19 16 [facility] Repository (1 source) NSAIDs Drug allergy (disorder) [facility] Repository (20 sources) fentaNYL Drug Allergy Unknown [facility] Other (3 sources) Ibuprofen Drug Allergy 01-15-20 15 Unknown [facility] Other (20 sources) Ofloxacin Drug Allergy Unknown [facility] Other (3 sources) zafirlukast Drug Allergy 01-15-20 15 Unknown [facility] Other (20 sources) Zafirlukast *ANTIASTHMATIC AND BRONCHODILATOR AGEN Propensity to adverse reactions Unknown [facility] Other (20 sources) Ibuprofen & Diet Manage Prod *ANALGESICS - ANTI-IN Propensity to adverse reactions Unknown [facility] Other (3 sources) Allergies Reconciled Propensity to adverse reactions Unknown [facility] Other (20 sources) Iodinated contrast media (substance) Drug allergy Unknown [facility] Other (3 sources) patient allergy list reviewed by nurse or physicia Propensity to adverse reactions 10-05-19 16 Comment:Done [facility] Other Medications Current Medications Medication Drug Class(es) [...] 6 hrs for 7 days May, Active [id number] actuat albuterol 0.09 mg/actuat metered dose [...] Active Start: 11-23-2022 take 2 tablets by [facility] every twenty-four hours predniSONE 20 MG 2 [...] 30 mg oral tablet (5 sources) Uncompetitive Z-dhtgvc-Q-aspartate Receptor Antagonist, Sigma-1 Agonist Start: 05-26-2021 take 1 tablet by mouth every eight hours [place] DMT 30-30 MG 1 tablet Orally every [...] 10-05-2015 [facility] Other aftercare (1 source) Other fpc (current) drug therapy; Translations: [OTH HEALTHCARE SCIENCE SPECIALIST CURRENT DRUG THERAPY] Onset: 12-29-2021 [facility] Other [...] Reference Range Facility [facility] 07-02-2023 Magnesium [Mass/Vol] 2.2750984 mg/dL Normal 1.8-2.4 mg/dL [facility] Other Magnesium see note [facility] Other MRI Shoulder w/o Contrast Ilya holt 05-31-2023 MRI Shoulder w/o Contrast Right Exam Date/Time: 05/30/2023 14:25 EDT Reason for Exam: S46.653I Report IMPRESSION: Full-thickness rotator cuff tearing involving [...] TAMARA Technologist: STELLA Technical Comments None Normal [facility] Consent for Treatmenton 05-19 Consent for Treatment [id number]#1.[address] [facility] RAD - MRI Screening Formon 1 RAD - MRI Screening Form [id number]#1.[address] [facility] Physician Orderon 05-09-2023 Physician Order [id number]#1. 00CD:[address] [facility] XR CHEST 2 Von 11-24-2022 XR [...] by: RUBI TAVERAS Date: 2022-11-24 17:[address] [facility] CT LUNG CANCER SCREENINGon 1 09-20-2021 [...] YEISON NAVAS Date: 2022-07-20 07:18 Normal [facility] CBC AUTO DIFFon 06-07-2022 BASO # 0.1 103/ul Normal 0.0-0.[address] [facility] Comment on above: Performed By: #### C BC #### [facility] [address] [address] [address] Eran Chacon Basophils/100 WBC (Bld) 0.6 % Normal 0.2-2.[address] [facility] Comment on above: Performed By: #### C BC #### [facility] [address] [place] [address] Dr. Eran Chacon EO # 0.3 103/ul Normal 0.0-0.[address] [facility] Comment on above: Performed By: #### C BC #### [facility] [address] [address] [address] Eran Chacon Eosinophils/100 WBC (Bld) 3.3 % Normal 0.9-7.[address] [facility] Comment on above: Performed By: #### C BC #### [facility] [address] [place] [address] Dr. Eran Chacon Erythrocyte distribution width (RBC) [Ratio] 12.9 % Normal 11.0-15.[address] [facility] Comment on above: Performed By: #### C BC #### [facility] [address] [place] [address] Dr. Eran Chacon Hematocrit (Bld) [Volume fraction] 47.7 % Normal 42.0-54.[address] [facility] Comment on above: Performed By: #### C BC #### [facility] [address] [place] [address] Dr. Eran Chacon Hemoglobin (Bld) [Mass/Vol] 15.9 g/dL Normal 14.0-18.[address] [facility] Comment on above: Performed By: #### C BC #### [facility] [address] [place] [address] Dr. Eran Chacon IG # 0.02 10e3/ul Normal 0.00-0.[address] [facility] Comment on above: Performed By: #### C BC #### [facility] [address] [place] [address] Dr. Eran Chacon IG % 0.2 % Normal 0.0-0.[address] [facility] Comment on above: Performed By: #### C BC #### [facility] [address] [place] [address] Dr. Eran Chacon LYMPH # 3.4 103/ul Normal 1.2-3.[address] [facility] Comment on above: Performed By: #### C BC #### [facility] [address] [place] [address] Dr. Eran Chacon Lymphocytes/100 WBC (Bld) 34.5 % Normal 20.5-60.[address] [facility] Comment on above: Performed By: #### C BC #### [facility] [address] [place] [address] Dr. Eran Chacon MANUAL DIFF REQ NO Normal [facility] Comment on above: Performed By: #### C BC #### [facility] [address] [place] [address] Dr. Eran Chacon MCH (RBC) [Entitic mass] 29.6 pg Normal 25.9-34.[address] [facility] Comment on above: Performed By: #### C BC #### [facility] [address] [place] [address] Dr. Eran Chacon MCHC (RBC) [Mass/Vol] 33.3 g/dL Normal 29.9-35.[address] [facility] Comment on above: Performed By: #### C BC #### [facility] [address] [place] [address] Dr. Eran Chacon MCV (RBC) [Entitic vol] 88.8 fL Normal 80.0-94.[address] [facility] Comment on above: Performed By: #### C BC #### [facility] [address] [place] [address] Dr. Eran Chacon MONO # 0.9 103/ul Critically high 0.3-0.8 [facility] Comment on above: Performed By: #### C BC #### [facility] [address] [place] [address] Dr. Eran Chacon Monocytes/100 WBC (Bld) 9.3 % Normal 1.7-12.[address] [facility] Comment on above: Performed By: #### C BC #### [facility] [address] [address] [address] Eran Chacon NEUT # 5.2 103/ul Normal 1.4-6.[address] [facility] Comment on above: Performed By: #### C BC #### [facility] [address] [place] [address] Dr. Eran Chacon Neutrophils/100 WBC (Bld) 52.1 % Normal 43.0-75.[address] [facility] Comment on above: Performed By: #### C BC #### [facility] [address] [place] [address] Dr. Eran Chacon Platelet mean volume (Bld) [Entitic vol] 8.8 fL Critically low 9.5-13.[address] [facility] Comment on above: Performed By: #### C BC #### [facility] [address] [place] [address] Dr. Eran Chacon PLT 287 103/ul Normal 150-450 [facility] Comment on above: Performed By: #### C BC #### [facility] [address] [place] [address] Dr. Eran Chacon RBC 5.37 106/ul Normal 4.70-6.10 [facility] Comment on above: Performed By: #### C BC #### [facility] [address] [place] [address] Dr. Eran Chacon WBC 9.9 103/ul Normal 4.0-11.0 [facility] Comment on above: Performed By: #### C BC #### [facility] [address] [place] [address] Dr. Eran Chacon ER URINE PROFILEon 2 Bilirubin Ql (U) Negative Normal NEGATIVE [facility] Comment on above: Performed By: #### Med SHER UMICRO #### [facility] [address] [place] [address] Dr. Eran Chacon Clarity (U) CLEAR Normal CLEAR [facility] Comment on above: Performed By: #### Med SHER UMICRO #### [facility] [address] [place] [address] Dr. Eran Chacon Color (U) YELLOW Normal YELLOW [facility] Comment on above: Performed By: #### Med SHER UMICRO #### [facility] [address] [place] [address] Dr. Eran GATES A micrscopic examination will be performed if indicated. Normal [facility] Comment on above: Performed By: #### Med SHER UMICRO #### [facility] [address] [place] [address] Dr. Eran Chacon Glucose Ql (U) 500 mg/dl Abnormal NEGATIVE [facility] Comment on above: Performed By: #### Med SHER UMICRO #### [facility] [address] [place] [address] Dr. Eran Chacon Hemoglobin Ql (U) TRACE-INTACT Abnormal NEGATIVE [facility] [place] [facility] Comment on above: Performed By: #### Med SHER UMICRO #### [facility] [address] [place] [address] Dr. Eran Chacon Ketones Ql (U) Negative Normal NEGATIVE [facility] Comment on above: Performed By: #### Med SHER UMICRO #### [facility] [address] [place] [address] Dr. Eran Chacon LEUKOCYTES Negative Normal NEGATIVE [facility] Comment on above: Performed By: #### Med SHER UMICRO #### [facility] [address] [place] [address] Dr. Eran Chacon Nitrite Ql (U) Negative Normal NEGATIVE [facility] Comment on above: Performed By: #### Med SHER UMICRO #### [facility] [address] [place] [address] Dr. Eran Chacon pH (U) 6.0 [pH] Normal 5-9 [facility] Comment on above: Performed By: #### BISHNU BATESRO #### [facility] [address] [place] [address] Dr. Eran Chacon SPEC GRAVITY 1.025 Normal 1.005-<=1.025 [facility] Comment on above: Performed By: #### ERMELINDA BATESICRO #### [facility] [address] [place] [address] Dr. Eran Chacon UA PROTEIN Negative Normal NEGATIVE/ TRACE [facility] Comment on above: Performed By: #### ERMELINDA BATESICRO #### [facility] [address] [place] [address] Dr. Eran Chacon UR MICRO IND INDICATED Normal [facility] Comment on above: Performed By: #### BISHNU BATESRO #### [facility] [address] [place] [address] Dr. Eran Chacon Urobilinogen Qn (U) 0.2 {Aureliano'U}/dL Normal 0.2 - 1.[address] [facility] Comment on above: Performed By: #### Med SHER UMICRO #### [facility] [address] [place] [address] Dr. Eran Chacon PROF 14(COMP METB)on 022 Albumin [Mass/Vol] 4.0 g/dL Normal 3.4-5.[address] [facility] Comment on above: Performed By: #### C MP #### [facility] [address] [place] [address] Dr. Eran Chacon Albumin/Globulin [Mass ratio] 1.2 {ratio} Normal [facility] Comment on above: Performed By: #### C MP #### [facility] [address] [place] [address] Dr. Eran Chacon ALP [Catalytic activity/Vol] 104 U/L Normal 46-116 [facility] Comment on above: Performed By: #### C MP #### [facility] [address] [place] [address] Dr. Eran Chacon ALT [Catalytic activity/Vol] 28 U/L Normal 16-63 [facility] Comment on above: Performed By: #### C MP #### [facility] [address] [place] [address] Dr. Eran Chacon Anion gap [Moles/Vol] 7.2 mmol/L Normal [facility] Comment on above: Performed By: #### C MP #### [facility] [address] [address] [address] Eran Chacon AST [Catalytic activity/Vol] 14 U/L Critically low 15-[address] [facility] Comment on above: Performed By: #### C MP #### [facility] [address] [address] [address] Eran Chacon Bilirubin [Mass/Vol] 0.4 mg/dL Normal 0.2-1.[address] [facility] Comment on above: Performed By: #### C MP #### [facility] [address] [place] [address] Dr. Eran Chacon Calcium [Mass/Vol] 9.0 mg/dL Normal 8.5-10.[address] [facility] Comment on above: Performed By: #### C MP #### [facility] [address] [place] [address] Dr. Eran Chacon Chloride [Moles/Vol] 103 mmol/L Normal 98-107 [facility] Comment on above: Performed By: #### C MP #### [facility] [address] [place] [address] Dr. Eran Chacon CO2 [Moles/Vol] 30.0 mmol/L Normal 21.0-32.0 [facility] Comment on above: Performed By: #### C MP #### [facility] [address] [place] [address] Dr. Eran Chacon Creatinine [Mass/Vol] 0.85 mg/dL Normal 0.70-1.30 [facility] Comment on above: Performed By: #### C MP #### [facility] [address] [place] [address] Dr. Eran Chacon EGFR-AF BELARUSIAN >60 Normal >=60 [facility] Comment on above: Performed By: #### C MP #### [facility] [address] [address] [address] Eran Chacon EGFR-NON AF BELARUSIAN >60 Normal >=60 [facility] Comment on above: Performed By: #### C MP #### [facility] [address] [address] [address] Eran Chacon Globulin (S) [Mass/Vol] 3.3 g/dL Normal [facility] Comment on above: Performed By: #### C MP #### [facility] [address] [address] [address] Eran Chacon Glucose [Mass/Vol] 165 mg/dL Critically high 74-[address] [facility] Comment on above: Performed By: #### C MP #### [facility] [address] [address] [address] Eran Chacon Potassium [Moles/Vol] 4.2 mmol/L Normal 3.5-5.1 [facility] Comment on above: Performed By: #### C MP #### [facility] [address] [address] [address] Eran Chacon Protein [Mass/Vol] 7.3 g/dL Normal 6.4-8.2 [facility] Comment on above: Performed By: #### C MP #### [facility] [address] [address] [address] Eran Chacon Sodium [Moles/Vol] 136 mmol/L Normal 136-145 [facility] Comment on above: Performed By: #### C MP #### [facility] [address] [address] [address] Eran Chacon Urea nitrogen [Mass/Vol] 10.0 mg/dL Normal 7.0-18.0 [facility] Comment on above: Performed By: #### C MP #### [facility] [address] [address] [address] Eran Chacon Urea nitrogen/Creatini ne [Mass ratio] 11.8 mg/mg Normal [facility] Comment on above: Performed By: #### C MP #### [facility] [address] [place] [address] Dr. Eran Chacon URINE MICROSCOPIC ONLYon BACTERIA NONE SEEN Normal NONE SEEN [facility] Comment on above: Performed By: #### Med SHER UMICRO #### [facility] [address] [place] [address] Dr. Eran Chacon Bacteria identified Cx Nom (U) NOT INDICATED Normal [facility] Comment on above: Performed By: #### Med SHER UMICRO #### [facility] [address] [place] [address] Dr. Eran Chacon CAST NONE SEEN Normal NONE SEEN [facility] Comment on above: Performed By: #### Med SHER UMICRO #### [facility] [address] [place] [address] Dr. Eran Chacon Crystals LM Nom (Urine sed) NONE SEEN Normal NONE SEEN [facility] Comment on above: Performed By: #### Med SHER UMICRO #### [facility] [address] [place] [address] Dr. Eran Chacon Epithelial cells LM Ql (Urine sed) RARE Normal NONE SEEN /RARE [facility] Comment on above: Performed By: #### Med SHER UMICRO #### [facility] [address] [place] [address] Dr. Eran Chacon MUCOUS NONE SEEN Normal NONE SEEN [facility] Comment on above: Performed By: #### Med SHER UMICRO #### [facility] [address] [place] [address] Dr. Eran Chacon RBC 0-2 Normal 0-2 [facility] Comment on above: Performed By: #### Med SHER UMICRO #### [facility] [address] [place] [address] Dr. Eran Chacon WBC 2-5 Abnormal NONE SEEN [facility] Comment on above: Performed By: #### Med SHER UMICRO #### [facility] [address] [place] [address] Dr. Eran Chacon MRI SHOULDER LT WO [...] YEISON NAVAS Date: 2022-02-02 17:09 Normal [facility] XR shoulder LT min 2V*on XR shoulder LT min 2V* [facility] [place] [address] [place] [address] XRay Report Signed Patient: Eric Craig MR#: [id number] : 1960 Acct:[id number] Age/Sex: 61 / M ADM Date: 01/25/22 Loc: [facility] Room: Type: [facility] CLI Attending Dr: Kesha Trujillo MD [...] Otilia Nunez M.D.01/25/2022 11:41 AM Dictation Location: [address] [place] [address] Transcribed By: [facility] 01/25/22 1141 Dictated By: Otilia Nunez MD 01/25/22 1139 Signed By: 01/25/22 1141 [facility] Vital Signs Date Time Vital Sign Value Performing Clinician Facility 08-13-2023 10:30-0500 Body height 175.26 cm Hannah Magallanes Other [facility] Other 08-13-2023 10:30-0500 Body mass index (BMI) [Ratio] 33.9 kg/m2 Hannah Magallanes Other [facility] Other 08-13-2023 10:30-0500 Body weight 104.15 kg Hannah Magallanes Other [facility] Other 08-13-2023 10:30-0500 Diastolic blood pressure 78 mm[Hg] Hannah Magallanes Other [facility] Other 08-13-2023 10:30-0500 Systolic blood pressure 124 mm[Hg] Hannah Magallanes Other [facility] Other 06-25-2023 08:45-0500 Body height 175.26 cm Hannah Magallanes Other [facility] Other 06-25-2023 08:45-0500 Body mass index (BMI) [Ratio] 33.37 kg/m2 Hannah Magallanes Other [facility] Other 06-25-2023 08:45-0500 Body temperature 96.5 [degF] Hannah Magallanes Other [facility] Other 06-25-2023 08:45-0500 Body weight 102.51 kg Hannah Magallanes Other [facility] Other 06-25-2023 08:45-0500 Diastolic blood pressure 85 mm[Hg] Hannah Magallanes Other [facility] Other 06-25-2023 08:45-0500 Systolic blood pressure 149 mm[Hg] Hannah Magallanes Other [facility] Other 05-28-2023 10:45-0400 Body height 175.26 cm Hannah Magallanes Other [facility] Other 05-28-2023 10:45-0400 Body mass index (BMI) [Ratio] 33.52 kg/m2 Hannah Magallanes Other [facility] Other 05-28-2023 10:45-0400 Body weight 102.97 kg Hannah Magallanes Other [facility] Other 05-28-2023 10:45-0400 Diastolic blood pressure 82 mm[Hg] Hannah Magallanes Other [facility] Other 10-10-2023 10:45-0400 Systolic blood pressure 147 mm[Hg] Hannah Magallanes Other [facility] Other 2023 08:45-0400 Body height 175.26 cm Hannah Magallanes Other [facility] Other 2023 08:45-0400 Body mass index (BMI) [Ratio] 33.52 kg/m2 Hannah Magallanes Other [facility] Other 2023 08:45-0400 Body weight 102.97 kg Hannah Magallanes Other [facility] Other 2023 08:45-0400 Diastolic blood pressure 85 mm[Hg] Hannah Magallanes Other [facility] Other 2023 08:45-0400 Systolic blood pressure 156 mm[Hg] Hannah Magallanes Other [facility] Other 04-30-2023 09:45-0400 Body height 175.26 cm Hannah Magallanes Other [facility] Other 04-30-2023 09:45-0400 Body mass index (BMI) [Ratio] 34.32 kg/m2 Hannah Magallanes Other [facility] Other 04-30-2023 09:45-0400 Body temperature 96.2 [degF] Hannah Magallanes Other [facility] Other 04-30-2023 09:45-0400 Body weight 105.42 kg Hannah Magallanes Other [facility] Other 04-30-2023 09:45-0400 Diastolic blood pressure 78 mm[Hg] Hannah Magallanes Other [facility] Other 04-30-2023 09:45-0400 Respiratory rate 16 /min Hannah Magallanes Other [facility] Other 04-30-2023 09:45-0400 Systolic blood pressure 146 mm[Hg] Hannah Magallanes Other [facility] Other 02-20-2023 09:15-0400 Body height 175.26 cm Hannah Magallanes Other [facility] Other 02-20-2023 09:15-0400 Body mass index (BMI) [Ratio] 33.46 kg/m2 Hannah Magallanes Other [facility] Other 02-20-2023 09:15-0400 Body weight 102.79 kg Hannah Magallanes Other [facility] Other 02-20-2023 09:15-0400 Diastolic blood pressure 77 mm[Hg] Hannah Magallanes Other [facility] Other 02-20-2023 09:15-0400 Systolic blood pressure 131 mm[Hg] Hannah Magallanes Other [facility] Other 01-17-2023 08:45-0400 Body height 175.26 cm Hannah Magallanes Other [facility] Other 01-17-2023 08:45-0400 Body mass index (BMI) [Ratio] 33.37 kg/m2 Hannah Magallanes Other [facility] Other 01-17-2023 08:45-0400 Body weight 102.51 kg Hannah Magallanes Other [facility] Other 01-17-2023 08:45-0400 Diastolic blood pressure 79 mm[Hg] Hannah Maagllanes Other [facility] Other 01-17-2023 08:45-0400 Systolic blood pressure 128 mm[Hg] Hannah Magallanes Other [facility] Other 11-23-2022 09:30-0400 Body height 175.26 cm Hannah Magallanes Other [facility] Other 11-23-2022 09:30-0400 Body mass index (BMI) [Ratio] 33.96 kg/m2 Hannah Magallanes Other [facility] Other 11-23-2022 09:30-0400 Body weight 104.33 kg Hannah Magallanes Other [facility] Other 11-23-2022 09:30-0400 Diastolic blood pressure 72 mm[Hg] Hannah Magallanes Other [facility] Other 11-23-2022 09:30-0400 Systolic blood pressure 122 mm[Hg] Hannah Magallanes Other [facility] Other 09-04-2022 11:30-0500 Body height 175.26 cm Hannah Magallanes Other [facility] Other 09-04-2022 11:30-0500 Body mass index (BMI) [Ratio] 33.52 kg/m2 Hannah Magallanes Other [facility] Other 09-04-2022 11:30-0500 Body weight 102.97 kg Hannah Magallanes Other [facility] Other 09-04-2022 11:30-0500 Diastolic blood pressure 80 mm[Hg] Hannah Magallanes Other [facility] Other 09-04-2022 11:30-0500 SaO2% (BldA) [Mass fraction] 95 % Hannah Sona Other [facility] Other 09-04-2022 11:30-0500 Systolic blood pressure 122 mm[Hg] Hannah Sona Other [facility] Other 02-06-2022 12:45-0400 Body height 175.26 cm Kesha Olexa Other [facility] Other 02-06-2022 12:45-0400 Body mass index (BMI) [Ratio] 31.01 kg/m2 Kesha Olexa Other [facility] Other 02-06-2022 12:45-0400 Body weight 95.26 kg Kesha Olexa Other [facility] Other 05-26-2021 13:15-0400 Body height 175.26 cm Harriet Ginty Other [facility] Other 05-26-2021 13:15-0400 Body mass index (BMI) [Ratio] 31.01 kg/m2 Harriet Ginty Other [facility] Other 05-26-2021 13:15-0400 Body temperature 98.3 [degF] Harriet Ginty Other [facility] Other 05-26-2021 13:15-0400 Body weight 95.26 kg Harriet Ginty Other [facility] Other 05-26-2021 13:15-0400 SaO2% (BldA) [Mass fraction] 96 % Harriet Ginty Other [facility] Other Encounters Encounter Date Encounter Type Care Provider Facility Start: 09-06-2023 End: 09-06-2023 ambulatory Hannah Magallanes Other [facility] Other Start: 09-06-2023 Telephone encounter Hannah Magallanes [facility] Start: 09-02-2023 End: 09-02-2023 ambulatory JIN POCOS Not Available Start: 08-20-2023 End: 08-20-2023 ambulatory Hannah Magallanes Other [facility] Other Start: 08-20-2023 Telephone encounter Hannah Magallanes [facility] Start: 08-13-2023 End: 08-13-2023 ambulatory Hannah Magallanes Other [facility] Other Start: 08-13-2023 Office outpatient vi sit 25 minutes Hannah Magallanes [facility] Start: 08-13-2023 Telephone encounter Hannah Magallanes [facility] Start: 08-06-2023 End: 08-06-2023 ambulatory Hannah Magallanes Other [facility] Other Start: 08-06-2023 Telephone encounter Hannah Magallanes [facility] Start: 07-29-2023 End: 07-29-2023 ambulatory JIN POCOS Not Available Start: 07-22-2023 End: 07-22-2023 ambulatory Hannah Magallanes Other [facility] Other Start: 07-22-2023 Telephone encounter Hannah Magallanes [facility] Start: 07-19-2023 End: 07-19-2023 ambulatory Hannah Magallanes Other [facility] Other Start: 07-19-2023 Telephone encounter Hannah Magallanes [facility] Start: 07-18-2023 End: 07-18-2023 ambulatory Hannah Magallanes Other [facility] Other Start: 07-18-2023 Telephone encounter Hannah Magallanes [facility] Start: 07-02-2023 End: 07-02-2023 ambulatory Hannah Magallanes Other [facility] Other Start: 07-02-2023 Office outpatient vi sit 15 minutes Hannah Magallanes [facility] Start: 07-02-2023 Telephone encounter Hannah Magallanes [facility] Start: 06-25-2023 End: 06-25-2023 ambulatory Hannah Magallanes Other [facility] Other Start: 06-25-2023 Office outpatient vi sit 15 minutes Hannah Magallanes [facility] Start: 06-21-2023 End: 06-21-2023 ambulatory Hannah Magallanes Other [facility] Other Start: 06-21-2023 Encounter by edmond r brayden Hannah Magallanes [facility] Start: 06-20-2023 End: 06-20-2023 ambulatory Hannah Magallanes Other [facility] Other Start: 06-20-2023 Telephone encounter Hannah Magallanes [facility] Start: 06-17-2023 End: 06-17-2023 ambulatory Hannah Magallanes Other [facility] Other Start: 06-17-2023 Telephone encounter Hannah Magallanes [facility] Start: 06-10-2023 End: 06-10-2023 ambulatory Hannah Magallanes Other [facility] Other Start: 06-10-2023 Telephone encounter Hannah Magallanes [facility] Start: 06-03-2023 End: 06-03-2023 ambulatory Hannah Magallanes Other [facility] Other Start: 06-03-2023 Telephone encounter Hannah Magallanes [facility] Start: 05-30-2023 End: 05-31-2023 ambulatory Barbie Tellez [facility] Facility:[facility] Start: 05-30-2023 End: 05-30-2023 Patient encounter procedure Barbie Jesus [facility] Start: 05-28-2023 End: 05-28-2023 ambulatory Hannah Magallanes Other [facility] Other Start: 05-28-2023 Office outpatient vi sit 15 minutes Hannah Magallanes [facility] Start: 2023 End: 2023 ambulatory Hannah Magallanes Other [facility] Other Start: 2023 Office outpatient vi sit 15 minutes Hannah Magallanes [facility] Start: 05-16-2023 End: 05-16-2023 ambulatory Hannah Magallanes Other [facility] Other Start: 05-16-2023 Telephone encounter Hannah Magallanes [facility] Start: 04-30-2023 End: 04-30-2023 ambulatory Hannah Magallanes Other [facility] Other Start: 04-30-2023 Office outpatient vi sit 15 minutes Hannah Magallanes [facility] Start: 04-26-2023 End: 04-26-2023 ambulatory Hannah Magallanes Other [facility] Other Start: 04-26-2023 Telephone encounter Hannah Magallanes [facility] Start: 04-23-2023 End: 04-23-2023 ambulatory Hannah Magallanes Other [facility] Other Start: 04-23-2023 Telephone encounter Hannah Sona [facility] Start: 03-25-2023 End: 03-25-2023 ambulatory Hannah Magallanes Other [facility] Other Start: 03-25-2023 Telephone encounter Hannah Magallanes [facility] Start: 03-06-2023 End: 03-06-2023 ambulatory Hannah Magallanes Other [facility] Other Start: 03-06-2023 Telephone encounter Hannah Magallanes [facility] Start: 02-20-2023 End: 02-20-2023 ambulatory Hannah Magallanes Other [facility] Other Start: 02-20-2023 Office outpatient vi sit 25 minutes Hannah Magallanes [facility] Start: 02-05-2023 End: 02-05-2023 ambulatory Hannah Magallanes Other [facility] Other Start: 02-05-2023 Telephone encounter Hannah Magallanes [facility] Start: 01-21-2023 End: 01-21-2023 ambulatory Hannah Magallanes Other [facility] Other Start: 01-21-2023 Telephone encounter Hannah Magallanes [employer] Start: 01-17-2023 End: 01-17-2023 ambulatory Hannah Magallanes Other [facility] Other Start: 01-17-2023 Office outpatient vi sit 15 minutes Hannah Magallanes [facility] Start: 12-24-2022 End: 12-24-2022 ambulatory Hannah Magallanes Other [facility] Other Start: 12-24-2022 Telephone encounter Hannah Magallanes [facility] Start: 12-03-2022 End: 12-03-2022 ambulatory Hannah Magallanes Other [facility] Other Start: 12-03-2022 Telephone encounter Hannah Magallanes [facility] Start: 11-27-2022 End: 11-27-2022 ambulatory Hannah Magallanes Other [facility] Other Start: 11-27-2022 Telephone encounter Hannah Magallanes [facility] Start: 11-26-2022 End: 11-26-2022 ambulatory Hannah Magallanes Other [facility] Other Start: 11-26-2022 Telephone encounter Hannah Magallanes [facility] Start: 11-24-2022 End: 11-25-[address] HANNAH MAGALLANES Facility:[facility] Start: 11-23-2022 End: 11-23-2022 ambulatory Hannah Magallanes Other [facility] Other Start: 11-23-2022 Office outpatient vi sit 15 minutes Hannah Magallanes [facility] Start: 11-05-2022 End: 11-05-2022 ambulatory Hannah Magallanes Other [facility] Other Start: 11-05-2022 Telephone encounter Hannah Magallanes [facility] Start: 10-03-2022 End: 10-03-2022 ambulatory Hannah Magallanes Other [facility] Other Start: 10-03-2022 Telephone encounter Hannah Magallanes [facility] Start: 09-04-2022 End: 09-04-2022 ambulatory Hannah Magallanes Other [facility] Other Start: 09-04-2022 Office outpatient vi sit 25 minutes Hannah Magallanes [facility] Start: 07-26-[address] HANNAH MAGALLANES Facil ity:[facility] Start: 07-19-2022 End: 07-20-[address] WILFREDO ENGLE Facility:[facility] Start: 06-07-2022 End: 06-07-[address] HANNAH MAGALLANES Facility:[facility] Start: 03-15-2022 ambulatory KESHA TRUJILLO Facility:[facility] Start: 02-06-2022 End: 02-06-2022 ambulatory Kesha Trujillo Other [facility] Other Start: 02-06-2022 Office outpatient vi sit 25 minutes Kesha Olemartin [facility] Start: 02-02-2022 End: 02-03-2022 ambulatory KESHA OLEXA Facility:[facility] Start: 12-28-2021 End: 12-28-[address] HANNAH MAGALLANES Facility:[facility] Start: 12-12-2021 End: 12-13-2021 ambulatory KESHA TRUJILLO [employer] Other Start: 12-12-2021 Office outpatient ne w 30 minutes Kesha Trujillo [facility] Start: 05-26-2021 Office outpatient vi sit 15 [...] (incl. purified surface antigen) Hannah Magallanes Other [facility] Other 06-28-2016 tetanus and diphther ia toxoids, adsorbed, preservative free, for adult use (5 Lf of tetanus toxoid and 2 Lf of diphtheria toxoid) Hannah Magallanes Other [facility] Other 05-25-2015 tetanus and diphther ia toxoids, adsorbed, preservative free, for adult use (5 Lf of tetanus toxoid and 2 Lf of diphtheria toxoid) Hannah Magallanes Other [facility] Other Payers Date Payer Category Payer Unknown [id number] 2.16.84 [id number] 1960 Unknown [id number] 2.16.84 [id number] 1960 Unknown [id number] 2.16.84 [id number] 1960 Unknown [id number] 2.16.84 [id number] 1960 Unknown [id number] 2.16.84 [id number] 1960 Unknown [id number] 2.16.84 [id number] 1960 Unknown [id number] 2.16.84 [id number] 1960 Unknown [id number] 2.16.84 [id number] 1960 Unknown [id number] 2.16.8 [id number] 1960 Unknown [id number] 2.16.84 [id number] 1960 Unknown [id number] 2.16.84 [id number] 1960 Unknown [id number] 2.16.840 .[id number] 1959 Medicaid [id number] 2. [id number] 1959 Medicare [id number] 2.1 [id number] Social History Date Type Detail Facility Sex Assigned At [facility] Tobacco smoking status No Smoking Status Entered [facility] Medical Equipment Procedure Code Equipment Code Equipment Original Text Equi pment Identifier Dates Accu-Chek FastClix Lancet - Clinical Notes 05-26-2021 to 09-06-2023 Note Date & Type Note Facility 09-06-2023 Evaluation note Encounter Date Diagnosis Assessment Notes Aug, Lumbar radicular pain (ICD-10 - M54.16) [facility] Other 12-26-2023 Evaluation note* Encounter Date Diagnosis Assessment Notes Treatment Notes Treatment Clinical Notes Jul, Type 2 diabetes mellitus with hyperglycemia, without long-term current use of insulin (ICD-10 - E11.65) [facility] Other 12-26-2023 Evaluation note* Encounter Date Diagnosis [...] T3s after shoulder pain has improved post-operatively. [facility] Other 12-04-2023 Evaluation note* Encounter Date Diagnosis Assessment Notes Treatment Notes Treatment Clinical Notes Jul, Type 2 diabetes mellitus with hyperglycemia, without long-term current use of insulin (ICD-10 - E11.65) [facility] Other 12-01-2023 Evaluation note* Encounter Date Diagnosis Assessment Notes Treatment Notes Treatment Clinical Notes Jul, Type 2 diabetes mellitus with hyperglycemia, without long-term current use of insulin (ICD-10 - E11.65) [facility] Other 11-30-2023 Evaluation note* Encounter Date Diagnosis Assessment Notes Treatment Notes Treatment Clinical Notes Jun, Labral tear of shoulder, right, subsequent encounter (ICD-10 - S43.431D) [facility] Other 11-14-2023 Evaluation note* Encounter Date Diagnosis [...] pain (ICD-10 - R07.9) r/o cardiac cause [facility] Other 11-07-2023 Evaluation note* Encounter Date Diagnosis [...] to decrease dose and possibly discontinue medication. [facility] Other 11-02-2023 Evaluation note* Encounter Date Diagnosis Assessment Notes Treatment Notes Treatment Clinical Notes Jun, Acute pain of right shoulder (ICD-10 - M25.511) [facility] Other 10-30-2023 Evaluation note* Encounter Date Diagnosis Assessment Notes Treatment Notes Treatment Clinical Notes May, Acute pain of right shoulder (ICD-10 - M25.511) [facility] Other 10-23-2023 Evaluation note* Encounter Date Diagnosis Assessment Notes Treatment Notes Treatment Clinical Notes May, Acute pain of right shoulder (ICD-10 - M25.511) [facility] Other 10-16-2023 Evaluation note* Encounter Date Diagnosis Assessment Notes Treatment Notes Treatment Clinical Notes May, Acute pain of right shoulder (ICD-10 - M25.511) [facility] Other 10-10-2023 Evaluation note* Encounter Date Diagnosis Assessment Notes Treatment Notes Treatment Clinical Notes May, Acute pain of right shoulder (ICD-10 - M25.511) MRI and surgery planning pending. Pt understands this is a controlled substance and to call in 1 week w update on treatment plan. May, Bronchitis (ICD-10 - J40) Finish antibiotic, rest, hydrate Steroids for wheezing. [facility] Other 10-04-2023 Evaluation note* Encounter Date Diagnosis Assessment Notes Treatment Notes Treatment Clinical Notes May, Acute pain of right shoulder (ICD-10 - M25.511) Reviewed [place]AR[place] and discussed short term plan of increase in pain medication. He is due for a refill of the T3s presently. Stop them, replace w norco. Pt understands weekly prescription and will need to d/c after anticipated surgery. [facility] Other 09-12-2023 Evaluation note* Encounter Date Diagnosis [...] office and the ER visit on 04/26 [facility] Other 07-05-2023 Evaluation note* Encounter Date Diagnosis [...] and will need less prn pain med. [facility] Other 06-01-2023 Evaluation note* Encounter Date Diagnosis [...] left shoulder (ICD-10 - M25.512) as above. [facility] Other 04-17-2023 Evaluation note* Encounter Date Diagnosis Assessment Notes Treatment Notes Treatment Clinical Notes Nov, Bronchitis (ICD-10 - J40) [facility] Other 04-11-2023 Evaluation note* Encounter Date Diagnosis Assessment Notes Treatment Notes Treatment Clinical Notes Nov, Disc degeneration, lumbar (ICD-10 - M51.36) Nov, Lumbar radicular pain (ICD-10 - M54.16) [facility] Other 04-07-2023 Evaluation note* Encounter Date Diagnosis [...] quit smoking. Pt verbalizes understanding and agreement. [facility] Other 02-15-2023 Evaluation note* Encounter Date Diagnosis Assessment Notes Treatment Notes Treatment Clinical Notes Sep, Lumbar radicular pain (ICD-10 - M54.16) [facility] Other 01-17-2023 Evaluation note* Encounter Date Diagnosis [...] is outlined on the test result page. [facility] Other 10-20-2022 NoteIndication: Calculus in kidney. Comparison: [...] Electronically authenticated by: JOHN PINTO Date: 2022-06-07 20:07[facility]06-21-2022 Evaluation note* Encounter Date Diagnosis Assessment [...] of infection, hardware pullout, cuff repair failure, fpc pain and stiffness are well known problems [...] of repair, infection and wound healing delays. [facility] Other 04-26-2022 NotePROCEDURE: XR SHOULDER LT 2V or > COMPARISON: None. HISTORY: Pain of left shoulder joint FINDINGS: BONES:No acute fracture or dislocation. 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 No visible soft tissue swelling. EFFUSION:None visible. OTHER: Negative. IMPRESSION: Mild osteoarthritis Electronically authenticated by: BARBIE MEMBRENO Date: 2021-12-12 15:[address] [place], [place] [id number] Evaluation note* Encounter Date Diagnosis Assessment Notes [...] pain of left shoulder (ICD-10 - M25.512) [facility] Other 10-08-2021 Evaluation note* Encounter Date Diagnosis [...] as needed for cough. Advised patient that [place] contains antihistamine and cough suppressant and to be cautious using other OTC cold medications. Patient to follow up with PCP if symptoms do not improve. Immediate eval if SOB, difficulty breathing, chest pain, dizziness, or other concerning symptoms. 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 Surgical History carpal tunnel release 2016 Surgical History tonsillectomy Hospitalization History 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 Hospitalization History [facility] Other Hospital Discharge instructions No data available for this section [facility] No data available for this section [facility] Summary Purpose Family History No Family [...] 1 Epigastric abdominal pain (R10.13) Referral Organization [facility] [employer] [facility] Referring Provider First Name Hannah Referring Provider Last Name Sona Referring Provider Specialty Family [facility] cine Referred Organization [facility] Referred Provider Sai Martinez Referred Address ,[place], [place],[address] Referred Provider Specialty Surgery Referral Priority Routine General Notes Es Camilo 11:38:02 AM >received today, attachments made, notes locked, referral faxed Reason 01/28/23 Access Or tho - B shoulder pain L>R - hopes for injections. Diagnosis 1 Pain in right should er (M25.511) Referral Organization [facility] [employer] [facility] Referring Provider First Name Hannah Referring Provider Last Name Sona Referring Provider Specialty [facility] Referred Organization [facility] Referred Provider Barbie Jesus Referred Address ,[place], [place],[address] Referred Provider Specialty Orthopaedic Surgery Referral Priority [...] in right should er (M25.511) Referral Organization [facility]mar Referring Provider First Name Hannah Referring Provider Last Name Sona Referring Provider Specialty [facility] Referred Organization [facility] Referred Provider Barbie Jesus Referred Address ,[place], [place],[address] Referred Provider Specialty Orthopaedic Surgery Referral Priority [...] section and content) DATE CREATED AUTHOR 02/10/2022 [facility] DATE CREATED AUTHOR AUTHOR'S ORGANIZ ATION 12/04/2022 [facility] DATE CREATED AUTHOR AUTHOR'S ORGANIZ ATION 06/01/2023 [facility] DATE CREATED AUTHOR AUTHOR'S ORGANIZ ATION 09/02/2023 [facility] EPIC Patient Care team informatio n (unrecognized section and content) Personnel Name: HANNAH MAGALLANES MD Address: Address: [address] [place] [address] FOR RECORDS PERTAINING TO PATIENTS WHO ARE [...] BE BASED ON THE PRIMARY CLINICAL RECORDS. [facility] [employer] [facility]. provides no warranty or guarantee of the accuracy or completeness of information in this document.
[2023-09-08 22:34] LABS: Glucometer 231 mg/dL (74-106)
[2023-09-08] MEDS: AZITHROMYCIN 500 MG in 0.9 % SODIUM CHLORIDE 250 ML 250 MG IV (22:46)
[2023-09-08] MEDS: ACETAMINOPHEN 325 MG TABLET 650 MG PO (22:47)
[2023-09-08] MEDS: OSELTAMIVIR PHOSPHATE 75 MG CAPSULE PO (22:47)
[2023-09-08] MEDS: INSULIN ASPART 300 UNIT/3 ML PEN SUBQ (22:48)
[2023-09-08] MEDS: 0.9 % SODIUM CHLORIDE 1,000 ML 75 ML IV (22:48)
[2023-09-09] VITALS (24 sets, daily range): BP systolic 136–145; BP diastolic 65–79; PULSE 84–112; RESP 18–20; TEMP 36.4–37.1; O2SAT 91–95
[2023-09-09] MEDS: IPRATROPIUM/ALBUTEROL SULFATE 3 ML AMPUL.NEB IH ×5 (03:57→18:58)
[2023-09-09 04:35] LABS: Hematocrit 42.5 % (42.0-54.0); Mean Corpuscular HGB Conc 32.9 g/dL (29.9-35.2); Mean Corpuscular Volume 88.2 fL (80.0-94.0); Mean Platelet Volume 8.8 fL (9.5-13.5); Platelet Count 284 10^3/uL (150-450); Red Blood Count 4.82 10^6/uL (4.70-6.10); Red Cell Distribution Width 13.1 % (11.0-15.0); White Blood Count 7.6 10^3/uL (4.0-11.0)
[2023-09-09 04:54] LABS: Alanine Aminotransferase 35 U/L (16-63); Albumin Globulin Ratio 0.9; Albumin Level 3.1 g/dL (3.4-5.0); Alkaline Phosphatase 85 U/L (46-116); Anion Gap 13.4; Aspartate Amino Transferase 20 U/L (15-37); BUN Creatinine Ratio 13.3; Bilirubin Total 0.2 mg/dL (0.2-1.0); Calcium 8.5 mg/dL (8.5-10.1); Chloride 101 mmol/L (98-107); Estimated GFR (African America >60 (>=60); Estimated GFR (Non-African Ame >60 (>=60); Globulin 3.5 g/dL; Glucose 264 mg/dL (74-106); Potassium 4.4 mmol/L (3.5-5.1); Sodium 136 mmol/L (136-145); Total Protein 6.6 g/dL (6.4-8.2)
[2023-09-09 05:14] LABS: Lymphocytes Absolute Manual 0.15 10^3/uL (1.20-3.80); Segmented Neut Absolute Manual 6.84 10^3/uL (1.4-6.5)
[2023-09-09 05:15] LABS: Band Neutrophils Absolute 0.2 10^3/uL (0.0-0.3); Eosinophils Absolute Manual 0.07 10^3/uL (0.00-0.70); Monocytes Absolute Manual 0.38 10^3/uL (0.30-0.80)
[2023-09-09] MEDS: METHYLPREDNISOLONE SOD SUCC PF 125 MG/2 ML VIAL 60 MG IVP ×3 (05:38→21:04)
[2023-09-09] MEDS: INSULIN ASPART 300 UNIT/3 ML PEN SUBQ ×4 (07:22→21:06)
[2023-09-09] MEDS: TIZANIDINE HCL 4 MG TABLET 2 MG PO (08:25)
[2023-09-09] MEDS: ATORVASTATIN CALCIUM 20 MG TABLET PO ×2 (08:25→21:04)
[2023-09-09] MEDS: OSELTAMIVIR PHOSPHATE 75 MG CAPSULE PO ×2 (08:25→21:05)
[2023-09-09] MEDS: GLIPIZIDE 5 MG TABLET PO (09:55)
--- NOTE | 2023-09-09 10:02 | CM.NOTE ---
Rounds made with Dr. Otoole, pt continues with cough and wheezing. Will attempt to wean oxygen today, no discharge.
--- NOTE | 2023-09-09 10:32 | P.HP_ITS ---
H&P: HPI History of Present Illness Chief complaint: Shortness of Breath Narrative: 63 y/o male to ER with SOB. C/o SOB and cough for several days. Severe fatigue and no energy. Low grade temp at home. AGUILAR and body aches. Cough and SOB worsened and to ER. Temp 100.4 in ER. SpO2 91% on room air and placed on oxygen for comfort. WBC and chest x-ray normal. Positive for influenza A. Severe wheezing and decreased BS on exam and admitted. Started tamiflu for influenza. Started solu-medrol and DuoNeb for COPD. Slightly better this am but continued fatigue and SOB. Review of Systems ROS Constitutional Reports: fever, chills and fatigue Cardiovascular Denies: chest pain, palpitations or edema Respiratory Reports: shortness of breath, cough and wheezing Gastrointestinal Denies: abdominal pain, nausea, vomiting or diarrhea Genitourinary Denies: painful urination [facility] Medical History (Updated 09/09/23 @ 08:54 by Neville Vick MD) Lumbar degenerative disc disease ?M51.36 - Other intervertebral disc degeneration, lumbar region (ICD-10) Influenza ?J11.1 - Influenza due to unidentified influenza virus with other respiratory manifestations (ICD-10) Acute bronchospasm ?J98.01 - Acute bronchospasm (ICD-10) Postoperative pain, acute, shoulder ?G89.18 - Other acute postprocedural pain (ICD-10) ?M25.519 - Pain in unspecified shoulder (ICD-10) Fever ?R50.9 - Fever, unspecified (ICD-10) Acute pain of right shoulder ?M25.511 - Pain in right shoulder (ICD-10) Rotator cuff arthropathy of right shoulder ?M12.811 - Other specific arthropathies, not elsewhere classified, right shoulder (ICD-10) Diabetes ?E11.9 - Type 2 diabetes mellitus without complications (ICD-10) COPD (chronic obstructive pulmonary disease) ?J44.9 - Chronic obstructive pulmonary disease, unspecified (ICD-10) Surgical History (Updated 09/09/23 @ 00:25 by Debra Weston) S/P right rotator cuff repair ?Z98.890 - Other specified postprocedural states (ICD-10) Social History (Updated 09/09/23 @ 00:26 by Debra Weston) Within the past year, how often did you have a drink containing alcohol: never Score interpretation: A score less than 4 is consistent with normal alcohol consumption. 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 Little interest or pleasure in doing things: not at all Feeling down, depressed, or hopeless: not at all Feel stressed/tense/nervous/anxious/difficulty sleeping: not at all Do you think of yourself as: straight/heterosexual Gender Identity: male Meds Home Medications and Allergies Home Medications Medication Instructions Recorded Confirmed Type glipizide 5 mg-metformin 500 mg 1 tab PO DAILY 08/23/23 09/08/23 History tablet atorvastatin 20 mg tablet 20 mg PO DAILY 09/08/23 09/08/23 History lancets (Accu-Chek Fastclix Lancet 09/08/23 09/08/23 History Drum) Allergies Allergy/AdvReac Type Severity Reaction Status Date / Time ibuprofen [From Motrin] AdvReac Mild Verified 09/08/23 19:17 IV dye Allergy Uncoded 09/08/23 19:17 Exam Constitutional Vital Signs, click to edit/add: Last Vital Signs Temp 97.5 F L 09/09/23 05:43 Pulse 98 H 09/09/23 09:51 Resp 20 09/09/23 05:43 BP 145/79 H 09/09/23 05:43 Pulse Ox 94 L 09/09/23 09:35 O2 Del Method Room Air 09/09/23 09:35 O2 Flow Rate 2 09/09/23 07:05 Documenting provider has reviewed patient's vital signs: yes Common normals: no apparent distress, oriented x3 and alert HENMT Common normals: normocephalic Eye Common normals: PERRL and EOMs intact bilaterally Respiratory Auscultation: wheezes and diminished lung sounds Cardio Common normals: regular rate, regular rhythm, no gallops, no murmurs and no rub GI Common normals: Normal to inspection, nondistended, normoactive bowel sounds present and non-tender Extremity Common normals: no pedal edema Results Labs Labs: Short CBC 09/08/23 09/09/23 Range/Units 19:18 04:01 WBC 9.6 7.6 (4.0-11.0) 10^3/uL Hgb 14.7 14.0 (14.0-18.0) g/dL Hct 44.5 42.5 (42.0-54.0) % Plt Count 306 284 (150-450) 10^3/uL BMP 09/08/23 09/09/23 19:18 04:01 Sodium 136 136 Potassium 3.7 4.4 Chloride 98 101 Carbon Dioxide 29.3 26.0 BUN 13.0 12.0 Creatinine 1.04 0.90 Glucose 181 H 264 H Calcium 8.8 8.5 Liver Function 09/09/23 Range/Units 04:01 Total Bilirubin 0.2 (0.2-1.0) mg/dL AST 20 (15-37) U/L ALT 35 (16-63) U/L Alkaline Phosphatase 85 (46-116) U/L Albumin 3.1 L (3.4-5.0) g/dL Pulse Oximetry Attestation: I have reviewed the pertinent pulse oximetry results. Imaging Chest x-ray: Attestation: I have reviewed the pertinent imaging results. Assessment and Plan Assessment and Plan (1) Influenza A: (2) Acute exacerbation of chronic obstructive pulmonary disease (COPD): (3) Type 2 diabetes mellitus with hyperglycemia: (4) Tobacco user: Plan Decreased BS and wheezing and continue steroids and breathing treatments. Add levaquin for possible bacterial infection. Continue tamiflu for influenza. Normal SpO2 on room air and monitor. Add PEP and increase ambulation. Resume home medication. Plan at least a 2 midnight stay for inpatient medically necessary services.
[2023-09-09] MEDS: LEVOFLOXACIN IN DEXTROSE 5 % 750 MG/150 ML IV.SOLN 100 MG IV (10:50)
[2023-09-09 11:20] LABS: Glucometer 278 mg/dL (74-106)
[2023-09-09] MEDS: ACETAMINOPHEN 300 MG/ 30 MG CODEINE TABLET 1 TAB PO (11:40)
--- NOTE | 2023-09-09 13:50 | CM.NOTE ---
Important Message From [employer] discussed with pt, pt verbalizes understanding and signs paper. Original given to pt and copy placed on pt's chart.
[2023-09-09 16:17] LABS: Glucometer 224 mg/dL (74-106)
[2023-09-09] MEDS: ACETAMINOPHEN 300 MG/ 30 MG CODEINE TABLET 2 TAB PO (18:49)
[2023-09-09 21:02] LABS: Glucometer 209 mg/dL (74-106)
[2023-09-09] MEDS: DOCUSATE SODIUM 100 MG CAPSULE PO (21:04)
[2023-09-10] VITALS (10 sets, daily range): BP systolic 132; BP diastolic 85; PULSE 74–87; RESP 18; TEMP 36.5; O2SAT 87–94
[2023-09-10] MEDS: METHYLPREDNISOLONE SOD SUCC PF 125 MG/2 ML VIAL 60 MG IVP (04:25)
[2023-09-10] MEDS: IPRATROPIUM/ALBUTEROL SULFATE 3 ML AMPUL.NEB IH ×2 (05:21→10:51)
--- NOTE | 2023-09-10 05:21 | RESP.RT ---
placed pt on 2L nasal cannula
[2023-09-10 05:29] LABS: Basophils Percent Auto 0.1 % (0.2-2.0); Hematocrit 42.6 % (42.0-54.0); Hemoglobin 14.2 g/dL (14.0-18.0); Immature Granulocytes Abs Auto 0.05 10^3/uL (0.00-0.03); Immature Granulocytes Pct Auto 0.4 % (0.0-0.5); Lymphocytes Absolute Auto 0.9 10^3/uL (1.2-3.8); Lymphocytes Percent Auto 7.6 % (20.5-60.0); Mean Corpuscular HGB Conc 33.3 g/dL (29.9-35.2); Mean Corpuscular Hemoglobin 29.2 pg (25.9-34.0); Mean Corpuscular Volume 87.7 fL (80.0-94.0); Mean Platelet Volume 9.1 fL (9.5-13.5); Monocytes Absolute Auto 0.9 10^3/uL (0.3-0.8); Monocytes Percent Auto 7.3 % (1.7-12.0); Neutrophils Percent Auto 84.6 % (43.0-75.0); Platelet Count 325 10^3/uL (150-450); Red Blood Count 4.86 10^6/uL (4.70-6.10); Red Cell Distribution Width 13.2 % (11.0-15.0); White Blood Count 11.8 10^3/uL (4.0-11.0)
[2023-09-10 05:56] LABS: Alanine Aminotransferase 34 U/L (16-63); Albumin Globulin Ratio 0.9; Albumin Level 3.1 g/dL (3.4-5.0); Alkaline Phosphatase 81 U/L (46-116); Anion Gap 11.1; Aspartate Amino Transferase 20 U/L (15-37); BUN Creatinine Ratio 18.3; Bilirubin Total 0.3 mg/dL (0.2-1.0); Calcium 8.8 mg/dL (8.5-10.1); Chloride 100 mmol/L (98-107); Estimated GFR (African America >60 (>=60); Estimated GFR (Non-African Ame >60 (>=60); Globulin 3.6 g/dL; Glucose 220 mg/dL (74-106); Potassium 4.1 mmol/L (3.5-5.1); Sodium 134 mmol/L (136-145); Total Protein 6.7 g/dL (6.4-8.2)
[2023-09-10] MEDS: ONDANSETRON 4 MG RAPDIS TABLET PO (07:42)
[2023-09-10] MEDS: LEVOFLOXACIN IN DEXTROSE 5 % 750 MG/150 ML IV.SOLN 100 MG IV (08:16)
[2023-09-10] MEDS: GLIPIZIDE 5 MG TABLET PO (08:48)
[2023-09-10] MEDS: OSELTAMIVIR PHOSPHATE 75 MG CAPSULE PO (08:48)
[2023-09-10] MEDS: METFORMIN HCL 500 MG TABLET PO (08:48)
[2023-09-10] MEDS: TIZANIDINE HCL 4 MG TABLET 2 MG PO (08:48)
[2023-09-10] MEDS: ACETAMINOPHEN 300 MG/ 30 MG CODEINE TABLET 2 TAB PO (08:49)
[2023-09-10 10:57] LABS: Glucometer 233 mg/dL (74-106)
--- NOTE | 2023-09-10 11:25 | CM.NOTE ---
Rounds made with amarilys Martínez to discharge to home this afternoon. Spoke with RN about weaning off oxygen.
--- NOTE | 2023-09-10 11:35 | PM.DS1 ---
DS: Providers Provider Date of admission: 09/09/23 10:28 Primary care physician: Hannah Gallo MD DS: Diagnosis Discharge Diagnosis (1) Influenza A: (2) Acute exacerbation of chronic obstructive pulmonary disease (COPD): (3) Type 2 diabetes mellitus with hyperglycemia: (4) Tobacco user: DS: Summary Hospital Course Hospital Course: Reason for admission: See H&P for details. 63 y/o male to ER with SOB. C/o SOB and cough for several days. Severe fatigue and no energy. Low grade temp at home. AGUILAR and body aches. Cough and SOB worsened and to ER. Temp 100.4 in ER. SpO2 91% on room air and placed on oxygen for comfort. WBC and chest x-ray normal. Positive for influenza A. Severe wheezing and decreased BS on exam and admitted. Hospital course: Started tamiflu for influenza. Started solu-medrol and DuoNeb for COPD. Added levaquin for possible bacterial infection. Resumed home medication. Slow to improve. Maintained normal SpO2 on room air during the day but desaturated during sleep and resumed oxygen. SOB and fatigue improved. Afebrile. Maintained normal SpO2 on room air. Discharged home in stable condition. Will take tamiflu for 4 days and levaquin x 7 days. Take prednisone tapered over 12 days. Resume home medication as directed. Follow up with PCP in 1-2 weeks. Time Spent with Patient Time attestation: Total time spent providing and/or coordinating discharge services: Exam Constitutional Vital Signs, click to edit/add: Last Vital Signs Temp 97.7 F 09/10/23 05:22 Pulse 74 09/10/23 10:52 Resp 18 09/10/23 05:36 BP 132/85 09/10/23 05:22 Pulse Ox 94 L 09/10/23 10:52 O2 Del Method Room Air 09/10/23 10:52 O2 Flow Rate 2 09/10/23 05:36 Documenting provider has reviewed patient's vital signs: yes Common normals: no apparent distress, oriented x3 and alert HENMT Common normals: normocephalic Eye Common normals: PERRL and EOMs intact bilaterally Respiratory Common normals: normal respiratory effort and clear to auscultation bilaterally Cardio Common normals: regular rate, regular rhythm, no gallops, no murmurs and no rub GI Common normals: Normal to inspection, nondistended, normoactive bowel sounds present and non-tender Extremity Common normals: no pedal edema DS: Data Data Completed and Pending Labs on day of discharge: Labs from last 24 hours 09/10/23 09/10/23 09/09/23 10:56 04:38 21:00 WBC 11.8 H RBC 4.86 Hgb 14.2 Hct 42.6 MCV 87.7 MCH 29.2 MCHC 33.3 RDW 13.2 Plt Count 325 MPV 9.1 L Neut % (Auto) 84.6 H Lymph % (Auto) 7.6 L [place] % (Auto) 7.3 Eos % (Auto) 0.0 L Baso % (Auto) 0.1 L Neut # (Auto) 10.0 H Lymph # (Auto) 0.9 L [place] # (Auto) 0.9 H Eos # (Auto) 0.0 Baso # (Auto) 0.0 Abs Immat Gran (auto) 0.05 H Imm/Tot Granulo (auto) 0.4 Sodium 134 L Potassium 4.1 Chloride 100 Carbon Dioxide 27.0 Anion Gap 11.1 BUN 15.0 Creatinine 0.82 Est GFR ( Amer) >60 Est GFR (Non-Af Amer) >60 BUN/Creatinine Ratio 18.3 Glucose 220 H Calcium 8.8 Total Bilirubin 0.3 AST 20 ALT 34 Alkaline Phosphatase 81 Total Protein 6.7 Albumin 3.1 L Globulin 3.6 Albumin/Globulin Ratio 0.9 POC Glucose 233 H 209 H 09/09/23 16:16 WBC RBC Hgb Hct MCV MCH MCHC RDW Plt Count MPV Neut % (Auto) Lymph % (Auto) [place] % (Auto) Eos % (Auto) Baso % (Auto) Neut # (Auto) Lymph # (Auto) [place] # (Auto) Eos # (Auto) Baso # (Auto) Abs Immat Gran (auto) Imm/Tot Granulo (auto) Sodium Potassium Chloride Carbon Dioxide Anion Gap BUN Creatinine Est GFR ( Amer) Est GFR (Non-Af Amer) BUN/Creatinine Ratio Glucose Calcium Total Bilirubin AST ALT Alkaline Phosphatase Total Protein Albumin Globulin Albumin/Globulin Ratio POC Glucose 224 H Discharge Plan Discharge Disposition: Home, Self-Care Discharge Medications: New oseltamivir 75 mg Capsule 75 mg PO BID 4 Days Qty: 8 0RF Protocol: Tamiflu (1-12 yrs) Condition: Weight < 15kg Dose/Route: 30 mg Instruction: PO Condition: Weight 15-23 kg Dose/Route: 45 mg Instruction: PO Condition: Weight 24-40 kg Dose/Route: 60 mg Instruction: PO Condition: Weight > 41 kg Dose/Route: 75 mg Instruction: PO prednisone 10 mg tablets,dose pack 10 mg PO DAILY Qty: 39 0RF Rx Instructions: 6 PO daily x 3 days, then 4 PO daily x 3 days, then 2 PO daily x 3 days, then 1 PO daily x 3 days levofloxacin 750 mg tablet 750 mg PO DAILY 7 Days Qty: 7 0RF Continued atorvastatin 20 mg tablet 20 mg PO DAILY (DME) lancets [Accu-Chek Fastclix Lancet Drum] Misc MISCELLANEOUS glipizide-metformin 5-500 mg tablet 1 tab PO DAILY Activity: resume usual activities as tolerated Diet: advance to your usual diet Patient Instructions: Influenza (DC) Forms: Portal Instructions Follow Up Appointments: @ 1:30pm with Dr. Gallo [phone]
--- NOTE | 2023-09-11 10:01 | CM.DCFOLLOWU ---
Person spoke with:patient How are you feeling? well How is your pain? no pain Did you understand your discharge instructions? yes Do you have any questions about your discharge instructions? no Were you given any prescriptions at discharge? yes Were you able to get your prescriptions filled? 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 yes Do you have any questions about your follow up appointment and do you plan to keep your follow up appointment? no questions, follow up on 09/13 with PCP Is there anything else that you would like to discuss? no Questions/Comments/Concerns/Other: N/A
== END 2023-09-10 13:21 | disposition home or self-care (01) | DRG 194 ==
LOC: ER 21:21 → MS 22:00
PROVIDERS: Nurse Practitioner Acute Care; Admitting Provider Family Medicine; Emergency Provider Internal Medicine; PCP Family Medicine; Visit Provider Family Medicine
DX: J10.1 Influenza due to other identified influenza virus with other respiratory manifestations (principal); J44.1 Chronic obstructive pulmonary disease with (acute) exacerbation; E11.65 Type 2 diabetes mellitus with hyperglycemia; F17.210 Nicotine dependence, cigarettes, uncomplicated; M51.36 Other intervertebral disc degeneration, lumbar region; Z79.84 Long term (current) use of oral hypoglycemic drugs; Z79.899 Other long term (current) drug therapy; J98.01 Acute bronchospasm
CPT/HCPCS: 0202U; 36415; 71045; 80048; 80053; 82948; 84484; 85007; 85025; 85027; 87040; 93005; 94640; 94667; 94668; 94761; 96361; 96365; 96366; 96367; 96375; 96376; 99285; 99406; G0378; J0456; J2405; J2930; Q0162

== ENCOUNTER 2023-12-05 09:44 | Outpatient (OUT) | payer MEDICARE, MEDICAID, SELFPAY ==
[2023-12-05 10:07] LABS: Basophils Absolute Auto 0.1 10^3/uL (0.0-0.1); Basophils Percent Auto 0.9 % (0.2-2.0); Eosinophils Absolute Auto 0.2 10^3/uL (0.0-0.7); Eosinophils Percent Auto 2.7 % (0.9-7.0); Hematocrit 48.9 % (42.0-54.0); Immature Granulocytes Abs Auto 0.03 10^3/uL (0.00-0.03); Immature Granulocytes Pct Auto 0.4 % (0.0-0.5); Lymphocytes Absolute Auto 2.4 10^3/uL (1.2-3.8); Lymphocytes Percent Auto 31.2 % (20.5-60.0); Mean Corpuscular HGB Conc 32.7 g/dL (29.9-35.2); Mean Corpuscular Hemoglobin 28.5 pg (25.9-34.0); Mean Platelet Volume 8.6 fL (9.5-13.5); Monocytes Absolute Auto 0.7 10^3/uL (0.3-0.8); Monocytes Percent Auto 9.5 % (1.7-12.0); Neutrophils Absolute Auto 4.2 10^3/uL (1.4-6.5); Neutrophils Percent Auto 55.3 % (43.0-75.0); Platelet Count 330 10^3/uL (150-450); Red Blood Count 5.62 10^6/uL (4.70-6.10); Red Cell Distribution Width 13.1 % (11.0-15.0); White Blood Count 7.7 10^3/uL (4.0-11.0)
[2023-12-05 11:06] LABS: Erythrocyte Sedimentation Rate 17 mm/hr (<=20)
[2023-12-05 11:33] LABS: Anion Gap 13.8; BUN Creatinine Ratio 12.9; Calcium 9.7 mg/dL (8.5-10.1); Carbon Dioxide 27.6 mmol/L (21.0-32.0); Chloride 102 mmol/L (98-107); Estimated GFR (African America >60 (>=60); Estimated GFR (Non-African Ame >60 (>=60); Glucose 156 mg/dL (74-106); Potassium 4.4 mmol/L (3.5-5.1); Sodium 139 mmol/L (136-145)
[2023-12-05 11:56] LABS: Estimated Average Glucose 171 mg/dL; Glycohemoglobin A1C 7.6 % (4.5-6.2)
== END 2023-12-05 09:45 | disposition home or self-care (01) ==
LOC: LAB 09:45
PROVIDERS: PCP Family Medicine; Visit Provider Family Medicine
DX: M25.50 Pain in unspecified joint (principal); E11.9 Type 2 diabetes mellitus without complications; M54.50 Low back pain, unspecified
CPT/HCPCS: 36415; 80048; 83036; 85025; 85652

== ENCOUNTER 2023-12-26 07:26 | Outpatient (OUT) | payer MEDICARE, MEDICAID, SELFPAY ==
--- OUTSIDE RECORDS SUMMARY | 2023-12-26 07:29 | XMS_ITS | CCD ---
Author Organization [facility] Care Team Providers Care Deli Worker Name Role Phone Ronnie Kesha Unavailable Chepe Harriet Unavailable Hannah Magallanes Unavailable SONA, DR HANNAH Jovel Admitting Unavailable MAGALLANES, DR HANNAH Jovel Attending Unavailable MAGALLANES, DR HANNAH Jovel Primary Care Unavailable MAGALLANES, DR HANNAH Jovel Consulting Unavailable TAVERAS, WINANDIE Consulting Unavailable OLEXA, KESHA Admitting Unavailable OLEXA, KESHA Attending Unavailable MAGALLANES, DR HANNAH Jovel Primary Care Unavailable TEMI, DR BARBIE Goldberg Consulting Unavailable OLEXA, KESHA [...] Unavailable VANCE ., DR DESIR Attending Unavailable VANCE ., DR DESIR Consulting Unavailable SONA, DR HANNAH Jovel Primary Care Unavailable BREE, DR CARLOS Drummond Admitting Unavailable BREE, DR CARLOS Drummond Attending Unavailable BREE, DR CARLOS Drummond Consulting Unavailable MILLIE, JOHN Consulting Unavailable HANNAH MAGALLANES Primary Care Physician Edin, Barbie Tellez Referring Unavailable Pocdoron, Barbie Tellez Attending Unavailable Pocdoron, Barbie Tellez Admitting Unavailable Hannah Magallanes MD Primary Care Provider [phone] POCBARBIE SAL Attending Unavailable POCDORON, HI Referring Unavailable BARBIE TAPIA Attending Unavailable BARBIE TAPIA Attending Unavailable Allergies Allergy Classification Reported Allergen(s) Allergy Type Date of Onset Reaction(s) Facility (20 sources) Ibuprofen Drug Allergy [facility] [employer] Other (20 sources) olodaterol / tiotropium Drug Allergy shortness of breath [facility] [employer] Other (20 sources) CT Scan dye Propensity to adverse reactions [facility] [employer] Other (4 sources) Ibuprofen Drug Allergy 08-19-[address] [facility] Repository (2 sources) Iodine (And Iodine Containting Drugs) Drug allergy (disorder) 09-07-19 16 [facility] Repository (1 source) NSAIDs Drug allergy (disorder) [facility] Rep[facility] (20 sources) fentaNYL Drug Allergy 12-05-19 24 Unknown, [facility] (4 sources) Ibuprofen Drug Allergy 01-15-20 15 [facility] (20 sources) Ofloxacin Drug Allergy 12-05-19 24 Unknown, [facility] (3 sources) zafirlukast Drug Allergy 01-15-[address] [facility] [employer] Other (20 sources) Zafirlukast *ANTIASTHMATIC AND BRONCHODILATOR AGEN Propensity to adverse reactions Unknown [facility] [employer] Other (20 sources) Ibuprofen & Diet Manage Prod *ANALGESICS - ANTI-IN Propensity to adverse reactions Unknown [facility] [employer] Other (3 sources) Allergies Reconciled Propensity to adverse reactions Unknown [facility] [employer] Other (20 sources) Iodinated contrast media (substance) Drug allergy 06-03-[address] [facility] [employer] Other (3 sources) patient allergy list reviewed by nurse or physicia Propensity to adverse reactions 10-05-19 16 Comment:Done [facility] [employer] Other (2 sources) olodaterol Drug Allergy 12-05-19 24 shortness of breath [facility] (2 sources) tiotropium Drug Allergy 12-05-19 24 shortness of breath [facility] (2 sources) Iodinated Contrast Media Allergy to substance 12-05-19 [facility] (2 sources) Ibuprofen & Diet Manage Prod * Allergy to substance 12-04-19 [facility] (2 sources) Zafirlukast *ANTIASTHMATIC AND Allergy to substance 12-04-19 [facility] Medications Current Medications Medication Drug Class(es) Dates Sig (Normalized) Sig (Original) acetaminophen 300 mg / codeine phosphate 30 mg oral tablet (20 sources) Opioid Agonist Start: 12-05-2023 End: 12-06-2023 take 1 tablet by mouth every eight hours Acetaminophen-Cod eine Active 1 TAB PO Every 8 hours 90 December 06, 2023 1:56pm Start: 10-08-2023 End: 12-05-2023 take 1 tablet by mouth every six hours as needed Acetaminophen-Codeine Discontinued 1 TAB PO Every 6 hours 120 October 09, 2023 9:50am November 04, 2023 4:38pm [employer] tablet as needed Orally every 6 hrs; Note: Source Status: Taking; Qty: 120 Tablet; Provider: Sona Jovel Start: 09-10-2023 take 1 tablet by desirae th every six hours Acetaminophen-Codeine 300-30 MG 1 tablet as needed Orally every 6 hrs for 30 days Aug, Active Start: 09-06-2023 take 1 tablet by desirae th every six hours Acetaminophen-Codeine 300-30 MG 1 tablet as needed Orally [...] as needed Orally every 6 hrs Active [id number] actuat albuterol 0.09 mg/actuat metered dose inhaler (17 sources) beta2-Adrenergic Agonist Start: 06-25-2023 take 2 puff(s) by inhalation every four hours albuterol HFA 90 mcg/act inhaler Inhale 2 puffs every 4 (four) hours if needed 0 06/25/2023 Active Start: 06-25-2023 take 2 puff(s) by in halation every four hours as needed Albuterol Sulfate HFA 108 (90 Base) MCG/ACT 2 puff Inhalation every 4 hrs prn Aug, Active Start: 06-25-2023 take 2 puff(s) by [...] 12 hrs for 10 day(s) Oct, Active azithromycin 250 mg oral tablet (20 sources) Macrolide Antimicrobial Start: 09-19-2023 Azithromycin 250 MG as directed Orally 2 tabs po today, then 1 tab daily x 4 more days for 5 Sep, Active Start: 05-28-2023 Azithromycin 2 50 MG as directed Orally [...] a day for 30 days Feb, Active gabapentin 800 mg oral tablet (1 source) Anti-epileptic Agent Start: 08-31-2023 gabapentin (Neurontin) 800 MG tablet glipiZIDE 5 mg / metFORMIN hydrochloride 500 mg oral tablet (16 sources) Biguanide, Sulfonylurea Start: 12-04-2023 take 2 tablets by mouth twice daily Glipizide-Metfo rmin Active TAB PO December 04, 2023 12:00am [employer] tab Orally bid; Note: Source Status: Start; Refills: 1; Qty: 360 Tablet; Provider: Sona Young ( ) Start: 07-19-2023 take 2 tablets by mo [facility] in the morning glipiZIDE-metFORMIN (Metaglip) 5-500 MG tablet Take 2 tablets by mouth in the morning and 2 tablets before bedtime. 0 07/19/2023 Active take 2 tablets by mo [facility] twice daily glipiZIDE-metFORMIN HCl 5-500 MG 2 tab Orally bid for 90 days Active take 1 tablet by desirae twice daily glipiZIDE-metFORMIN HCl 5-500 MG 1 tablet with a meal Orally bid for 30 days Active predniSONE 10 mg oral tablet (14 sources) Start: 04-30-2023 predniSONE 10 MG 4 tabs po daily x 2 days, 3 tabs daily x 2 days, 2 tabs daily x 2 days, 1 tab daily x 2 days Orally Once a day for 8 Apr, Active Start: 11-23-[address] [facility] every twenty-four hours predniSONE 20 MG 2 tablets Orally Once a day for 5 days Nov, Active predniSONE 20 MG TAKE 3 TABLETS BY MOUTH DAILY X 3 DAYS, 2 TABLETS DAILY X 3 DAYS, 1 TABLET DAILY X 3 DAYS for 9 Active tiZANidine 4 mg oral tablet (1 source) Central alpha-2 Adrenergic Agonist Start: 04-23-2023 take 1 tablet by mouth at bedtime as needed tiZANidine (Zanaflex) 4 MG tablet TAKE 1/2-1 TABLET BY MOUTH AT BEDTIME NEEDED FOR SPAMS 0 04/23/2023 Active Completed/Discontinued Medications Medication Drug Class(es) Dates Sig (Normalized) Sig (Original) acetaminophen 325 mg / HYDROcodone bitartrate 10 mg oral tablet (20 sources) Opioid Agonist Start: 12-04-2023 End: 12-05-2023 take 1 tablet by mouth every six hours as needed Start: 08-13-2023 take 1 tablet by desirae every six hours Start: 07-23-2023 take 1 tablet by desirae every six hours HYDROcodone-Acetaminophen 10-325 MG 1 tablet as needed Orally every 6 hrs for 30 days Jul, Active Start: 07-23-2023 take 1 tablet by desirae every six hours HYDROcodone-Acetaminophen 10-325 MG 1 tablet as needed Orally every 6 hrs for 30 days Jul, Active Start: 07-23-2023 take 1 tablet by desirae every six hours HYDROcodone-Acetaminophen 10-325 MG 1 [...] for 7 days May, Active Start: 2023 HYDROcodone-ac etaminophen ([place]) 10-325 MG tablet Start: 2023 take 1 tablet by desirae th every six hours HYDROcodone-Acetaminophen 10-325 MG 1 tablet as needed Orally every 6 hrs for 7 days May, Active atorvastatin 20 mg oral tablet (18 sources) HMG-CoA Reductase Inhibitor Start: 10-23-2023 End: 12-17-2023 take 1 tablet by mouth once daily Atorvastatin Discontinued 0 .ROUTE .COMPLEX 90 October 23, 2023 3:27pm December 17, 2023 9:20am TAKE 1 TABLET BY MOUTH EVERY DAY FOR 30 DAYS Start: 10-23-2023 End: 10-23-2023 take 20 mg by mouth once daily Atorvastatin Discontinu ed 20 MG PO Daily October 23, 2023 1:00am October 23, 2023 3:27pm Start: 07-26-2023 atorvastatin ( Lipitor) 20 MG tablet dextromethorphan hydrobromide 30 mg / pyrilamine maleate 30 mg oral tablet (5 sources) Uncompetitive O-fedajk-E-aspartate Receptor Antagonist, Sigma-1 Agonist Start: 05-26-2021 take 1 tablet by mouth every eight hours [place] DMT 30-30 MG 1 tablet Orally every 8 hours for 7 days May, Not-Taking Methylprednisolone (14 sources) Corticosteroid Start: 12-06-2023 End: 12-17-2023 Methylprednisolone Discontinued 0 PO per package directions December 06, 2023 12:00am December 17, 2023 9:20am PO PER PKG DIR for 6 days Start: 09-19-2023 methylPREDNISo lone 4 MG as directed Orally for 6 days Sep, Active Start: 05-28-2023 methylPREDNISo lone 4 MG as directed Orally for 6 days May, Active Start: 05-26-2021 Medrol (Boris) 4 MG as directed Orally for daily dose take half with breakfast half with dinner for 6 days May, Not-Taking triamcinolone acetonide 40 mg/ml injectable suspension (20 sources) Corticosteroid Start: 12-12-2021 Kenalog-40 Nov, 40 mg Start: 12-12-2021 Kenalog -40 mg Nov, 40 mg Problems Active Problems Problem Classification Problem Date Documented Da te Episodic/Chronic Acute bronchitis (9 sources) Acute bronchitis; Translations: [Acute bronchitis due to other specified organisms] Onset: 8 Episodic Anxiety disorders (3 sources) Anxiety disorder; Translations: [Other specified anxiety disorders] Onset: 9 Chronic Asthma (20 sources) Mild intermittent asthma; Translations: [Mild intermittent asthma, uncomplicated] Onset: 5 Chronic Chronic obstructive pulmonary disease and bronchiectasis (20 [...] Onset: 9 Chronic Diabetes mellitus without complication (8 sources) Type 2 diabetes mellitus without complications; Translations: [Type 2 diabetes mellitus without complication] Onset: 7 12-05-2023 Chronic Diseases of white blood cells (20 [...] derangements of left shoulder, not elsewhere classified] Onset: 3 03-25-2023 Chronic Other non-traumatic joint disorders (4 sources) Other specific joint derangements of left shoulder, not elsewhere classified; Translations: [OTH SPEC JOINT DERANG LT SHLDR NEC] Onset: 2 Chronic Other non-traumatic joint disorders (1 source) Rotator cuff arthropathy of left shoulder; Translations: [Other specific arthropathies, not elsewhere classified, left shoulder] Onset: 3 01-28-2023 Chronic Other non-traumatic joint disorders (8 sources) Pain in left shoulder; Translations: [PAIN IN LEFT SHOULDER] Onset: 2 Resolved: 2 Episodic Other non-traumatic joint disorders (9 sources) Pain in right shoulder Episodic Other non-traumatic joint disorders (2 sources) Joint pain; Translations: [Pain in unspecified joint] 12-05-2023 Episodic Other non-traumatic joint disorders (2 sources) Pain in unspecified joint; Translations: [Pain in joint, site unspecified] 12-05-2023 Episodic Other non-traumatic joint disorders (1 source) Hip pain; Translations: [Pain in right hip] 12-17-2023 Episodic Other non-traumatic joint disorders (1 source) Pain in right hip; Translations: [Pain in joint, pelvic region and thigh] 12-17-2023 Episodic Other nutritional; endocrine; and metabolic disorders [...] Spondylosis; intervertebral disc disorders; other back problems (10 sources) Radiculopathy, lumbar region; Translations: [Dorsalgia, unspecified] [...] pain; Translations: [Right upper quadrant pain] Onset: 12-18-2018 Episodic Biliary tract disease (20 sources) Chronic cholecystitis due to gallbladder calculus with obstruction; Translations: [Calculus of gallbladder with chronic cholecystitis with obstruction] Onset: 06-18-2016 03-27-2023 Episodic Blindness and vision defects (4 sources) Other [...] 10-05-2015 Episodic Other aftercare (1 source) Other monkey trainer (current) drug therapy; Translations: [OTH CUSTODIAL CURRENT DRUG THERAPY] Onset: 12-29-2021 Episodic Other [...] shoulder Onset: 12-12-2021 Resolved: 12-12-2021 Episodic Other connective tissue disease (1 source) Rotator cuff impingement syndrome; Translations: [Impingement syndrome of right shoulder] Onset: 01-28-2023 01-28-2023 Episodic Other connective tissue disease (1 source) Partial thickness rotator cuff tear; Translations: [Incomplete rotator cuff tear or rupture of left shoulder, not specified as traumatic] Onset: 03-25-2023 03-25-2023 Episodic Other ear and sense organ disorders (3 sources) Impacted cerumen; Translations: [Impacted cerumen] Onset: 03-13-2018 Episodic Other gastrointestinal disorders (1 source) Stool DNA-based colorectal cancer screening positive; Translations: [Other fecal abnormalities] Onset: 03-27-2023 03-27-2023 Episodic Other gastrointestinal disorders (1 source) Esophageal dysphagia; Translations: [Other dysphagia] Onset: 03-27-2023 03-27-2023 Episodic Pneumonia (except that caused by tuberculosis or sexually transmitted disease) (3 sources) Pneumonia; Translations: [Pneumonia, unspecified organism] Onset: 07-28-2015 Episodic Syncope (3 sources) Syncope and collapse; Translations: [Syncope and collapse] Onset: 09-21-2016 Episodic Results Test Name Value Interpretation Reference Range Facility Basophils Auto (Bld) [#/Vol] on 12-05-2023 Basophils (Bld) [#/Vol] 0.1 10 3/uL 0.0-0.1 [facility] Basophils/100 WBC Auto (Bld) on 12-05-2023 Basophils/100 WBC (Bld) 0.9 % 0.2-2.0 [facility] Eosinophils/100 WBC Auto (Bl d)on 12-05-2023 Eosinophils/100 WBC (Bld) 2.7 % 0.9-7.0 [facility] Erythrocyte distribution wid th Auto (RBC) [Ratio]on 12-05-2023 Erythrocyte distribution width (RBC) [Ratio] 13.1 % 11.0-15.0 [facility] Estimated glomerular filtrat ion rate (GFR) non- Americanon 12-05-2023 GFR/1.73 sq M.predicted among non-blacks MDRD (S/P/Bld) [Vol rate/Area] mL/min/{1.73_m2} >=60 [facility] Glucose mean value [Mass/vol ume] in Blood Estimated from glycated hemoglobinon 12-05-2023 Average glucose Estimated from glycated hemoglobin (Bld) [Mass/Vol] 171 mg/dL [facility] Hematocrit Auto (Bld) [Volum e fraction]on 12-05-2023 Hematocrit (Bld) [Volume fraction] 48.9 % 42.0-54.0 [facility] Hemoglobin [Mass/volume] in Bloodon 12-05-2023 Hemoglobin (Bld) [Mass/Vol] 16.0 g/dL 14.0-18.0 [facility] Laboratory - Chemistry and C hemistry - challengeon 12-05-2023 Calcium [Mass/Vol] 9.7 mg/dL 8.5-10.1 [facility] Chloride [Moles/Vol] 102 mmol/L 98-107 [facility] CO2 [Moles/Vol] 27.6 mmol/L 21.0-32.0 [facility] Creatinine [Mass/Vol] 1.01 mg/dL 0.70-1.30 [facility] GFR/1.73 sq M.predicted MDRD (S/P/Bld) [Vol rate/Area] mL/min/{1.73_m2} >=60 [facility] Glucose [Mass/Vol] 156 mg/dL 74-106 [facility] Potassium [Moles/Vol] 4.4 mmol/L 3.5-5.1 [facility] Sodium [Moles/Vol] 139 mmol/L 136-145 [facility] Urea nitrogen [Mass/Vol] 13.0 mg/dL 7.0-18.0 [facility] Urea nitrogen/Creatinine [Mass ratio] 12.9 mg/mg [facility] Laboratory - Hematology and Cell countson 12-05-2023 ESR (Bld) [Velocity] 17 mm/h <=20 [facility] HbA1c (Bld) [Mass fraction] 7.6 % 4.5-6.2 [facility] Comment on above: ADA RECOMMENDED LIMI T 4.0 - 6.0ADA THERAPEUTIC TARGET < 7.0ACTION SUGGESTED> 7.0 Immature granulocytes/100 WBC (Bld) 0.4 % 0.0-0.5 [facility] Leukocytes [#/volume] correc jean claude for nucleated erythrocytes in Blood by Automated counon 12-05-2023 WBC corrected for nucl RBC Auto (Bld) [#/Vol] 7.7 10 3/uL 4.0-11.0 [facility] Lymphocytes Auto (Bld) [#/Vo l]on 12-05-2023 Lymphocytes (Bld) [#/Vol] 2.4 10 3/uL 1.2-3.8 [facility] Lymphocytes/100 WBC Auto (Bl d)on 12-05-2023 Lymphocytes/100 WBC (Bld) 31.2 % 20.5-60.0 [facility] MCH Auto (RBC) [Entitic mass ]on 12-05-2023 MCH (RBC) [Entitic mass] 28.5 pg 25.9-34.0 [facility] MCHC Auto (RBC) [Mass/Vol]on 12-05-2023 MCHC (RBC) [Mass/Vol] 32.7 g/dL 29.9-35.2 [facility] MCV Auto (RBC) [Entitic vol] on 12-05-2023 MCV (RBC) [Entitic vol] 87.0 fL 80.0-94.0 [facility] Monocytes Auto (Bld) [#/Vol] on 12-05-2023 Monocytes (Bld) [#/Vol] 0.7 10 3/uL 0.3-0.8 [facility] Monocytes/100 WBC Auto (Bld) on 12-05-2023 Monocytes/100 WBC (Bld) 9.5 % 1.7-12.0 [facility] Neutrophils Auto (Bld) [#/Vo l]on 12-05-2023 Neutrophils (Bld) [#/Vol] 4.2 10 3/uL 1.4-6.5 [facility] Neutrophils/100 WBC Auto (Bl d)on 12-05-2023 Neutrophils/100 WBC (Bld) 55.3 % 43.0-75.0 [facility] No Panel Informationon 12-04 Eosinophils # (Auto) 0.2 10 3/uL 0.0-0.7 [facility] Immature Granulocyte # (Auto) 0.03 10 3/uL 0.00-0.03 [facility] Platelet mean volume Auto (B ld) [Entitic vol]on 12-05-2023 Platelet mean volume (Bld) [Entitic vol] 8.6 fL 9.5-13.5 [facility] Platelets Auto (Bld) [#/Vol] on 12-05-2023 Platelets (Bld) [#/Vol] 330 10 3/uL 150-450 [facility] RBC Auto (Bld) [#/Vol]on RBC (Bld) [#/Vol] 5.62 10 6/uL 4.70-6.10 [facility] Serum or plasma anion gap de terminationon 12-05-2023 Anion gap [Moles/Vol] 13.8 mmol/L [facility] Magnesiumon 07-02-2023 Magnesium [Mass/Vol] 2.8523789 mg/dL Normal 1.8-2.4 mg/dL [employer] Other Magnesium see note [employer] Other MRI Shoulder w/o Contrast [facility] 05-31-2023 MRI Shoulder w/o Contrast Right Exam Date/Time: 05/30/2023 14:25 EDT Reason for Exam: [id number] Report IMPRESSION: Full-thickness rotator cuff tearing involving [...] subacromial subdeltoid bursa. Report Ordering Provider: Barbie Tapia FINAL REPORT Dictated: 05/31/2023 11:50 am Ian Singh MD Signed (Electronic Signature): 05/31/2023 11:50 am Signed by: Ian Singh MD Transcribed by: TAMARA Technologist: STELLA Technical Comments None [facility] Consent for Treatmenton 05-19 Consent for Treatment [id number] .00TIFF [facility] RAD - MRI Screening Formon 1 RAD - MRI Screening Form [id number]. 00TIFF [facility] Physician Orderon 05-09-2023 Physician Order [id number]# 1.00CD:127 [facility] XR CHEST 2 Von 11-24-2022 XR [...] by: RUBI TAVERAS Date: 2022-11-24 17:17 Normal [facility] CT LUNG CANCER SCREENINGon 1 09-20-2021 [...] mass, effusion, or pneumothorax. VASCULATURE: No abnormality. RMOÁN: No mass or pathologic adenopathy. MEDIASTINUM: No [...] YEISON NAVAS Date: 2022-07-20 07:18 Normal [facility] CBC AUTO DIFFon 06-07-2022 BASO # 0.1 103/ul Normal 0.0-0.1 [facility] Comment on above: Performed By: #### C BC #### [facility] [address] [place] [address] Dr. Eran Chacon Basophils/100 WBC (Bld) 0.6 % Normal 0.2-2.0 [facility] Comment on above: Performed By: #### C BC #### [facility] [address] [address] [address] Eran Chacon EO # 0.3 103/ul Normal 0.0-0.7 [facility] Comment on above: Performed By: #### C BC #### [facility] [address] [place] [address] Dr. Eran Chacon Eosinophils/100 WBC (Bld) 3.3 % Normal 0.9-7.0 [facility] Comment on above: Performed By: #### C BC #### [facility] [address] [place] [address] Dr. Eran Chacon Erythrocyte distribution width (RBC) [Ratio] 12.9 % Normal 11.0-15.0 [facility] Comment on above: Performed By: #### C BC #### [facility] [address] [place] [address] Dr. Eran Chacon Hematocrit (Bld) [Volume fraction] 47.7 % Normal 42.0-54.0 [facility] Comment on above: Performed By: #### C BC #### [facility] [address] [place] [address] Dr. Eran Chacon Hemoglobin (Bld) [Mass/Vol] 15.9 g/dL Normal 14.0-18.0 [facility] Comment on above: Performed By: #### C BC #### [facility] [address] [place] [address] Dr. Eran Chacon IG # 0.02 10e3/ul Normal 0.00-0.03 [facility] Comment on above: Performed By: #### C BC #### [facility] [address] [place] [address] Dr. Eran Chacon IG % 0.2 % Normal 0.0-0.5 [facility] Comment on above: Performed By: #### C BC #### [facility] [address] [place] [address] Dr. Eran Chacon LYMPH # 3.4 103/ul Normal 1.2-3.8 [facility] Comment on above: Performed By: #### C BC #### [facility] [address] [place] [address] Dr. Eran Chacon Lymphocytes/100 WBC (Bld) 34.5 % Normal 20.5-60.0 [facility] Comment on above: Performed By: #### C BC #### [facility] [address] [place] [address] Dr. Eran Chacon MANUAL DIFF REQ NO Normal [facility] Comment on above: Performed By: #### C BC #### [facility] [address] [address] [address] Eran Chacon MCH (RBC) [Entitic mass] 29.6 pg Normal 25.9-34.0 [facility] Comment on above: Performed By: #### C BC #### [facility] [address] [address] [address] Eran Chacon MCHC (RBC) [Mass/Vol] 33.3 g/dL Normal 29.9-35.2 [facility] Comment on above: Performed By: #### C BC #### [facility] [address] [address] [address] Eran Chacon MCV (RBC) [Entitic vol] 88.8 fL Normal 80.0-94.0 [facility] Comment on above: Performed By: #### C BC #### [facility] [address] [place] [address] Dr. Eran Chacon MONO # 0.9 103/ul Critically high 0.3-0.8 [facility] Comment on above: Performed By: #### C BC #### [facility] [address] [address] [address] Eran Chacon Monocytes/100 WBC (Bld) 9.3 % Normal 1.7-12.0 [facility] Comment on above: Performed By: #### C BC #### [facility] [address] [place] [address] Dr. Eran Chacon NEUT # 5.2 103/ul Normal 1.4-6.5 [facility] Comment on above: Performed By: #### C BC #### [facility] [address] [place] [address] Dr. Eran Chacon Neutrophils/100 WBC (Bld) 52.1 % Normal 43.0-75.0 [facility] Comment on above: Performed By: #### C BC #### [facility] [address] [place] [address] Dr. Eran Chacon Platelet mean volume (Bld) [Entitic vol] 8.8 fL Critically low 9.5-13.5 [facility] Comment on above: Performed By: #### C BC #### [facility] [address] [place] [address] Dr. Eran Chacon PLT 287 103/ul Normal 150-450 [facility] Comment on above: Performed By: #### C BC #### [facility] [address] [place] [address] Dr. Eran Chacon RBC 5.37 106/ul Normal 4.70-6.10 [facility] Comment on above: Performed By: #### C BC #### [facility] [address] [place] [address] Dr. Eran Chacon WBC 9.9 103/ul Normal 4.0-11.0 [facility] Comment on above: Performed By: #### C BC #### [facility] [address] [place] [address] Dr. Eran Chacon ER URINE PROFILEon 2 Bilirubin Ql (U) Negative Normal NEGATIVE [facility] Comment on above: Performed By: #### BISHNU BATESRO #### [facility] [address] [place] [address] Dr. Eran Chacon Clarity (U) CLEAR Normal CLEAR [facility] Comment on above: Performed By: #### BISHNU BATESRO #### [facility] [address] [place] [address] Dr. Eran Chacon Color (U) YELLOW Normal YELLOW [facility] Comment on above: Performed By: #### BISHNU BATESRO #### [facility] [address] [place] [address] Dr. Eran GATES A micrscopic examination will be performed if indicated. Normal [facility] Comment on above: Performed By: #### BISHNU BATESRO #### [facility] [address] [place] [address] Dr. Eran Chacon Glucose Ql (U) 500 mg/dl Abnormal NEGATIVE [facility] Comment on above: Performed By: #### BISHNU BATESRO #### [facility] [address] [place] [address] Dr. Eran Chacon Hemoglobin Ql (U) TRACE-INTACT Abnormal NEGATIVE [facility] Comment on above: Performed By: #### Med SHER UMICRO #### [facility] [address] [place] [address] Dr. Eran Chacon Ketones Ql (U) Negative Normal NEGATIVE [facility] Comment on above: Performed By: #### Med SHER UMICRO #### [facility] [address] [place] [address] Dr. Eran Chacon LEUKOCYTES Negative Normal NEGATIVE [facility] Comment on above: Performed By: #### Med SHER UMICRO #### [facility] [address] [place] [address] Dr. Eran Chacon Nitrite Ql (U) Negative Normal NEGATIVE [facility] Comment on above: Performed By: #### Med SHER UMICRO #### [facility] [address] [place] [address] Dr. Eran Chacon pH (U) 6.0 [pH] Normal 5-9 [facility] Comment on above: Performed By: #### Med SHER UMICRO #### [facility] [address] [place] [address] Dr. Eran Chacon SPEC GRAVITY 1.025 Normal 1.005-<=1.025 [facility] Comment on above: Performed By: #### Med SHER UMICRO #### [facility] [address] [place] [address] Dr. Eran Chacon UA PROTEIN Negative Normal NEGATIVE/ TRACE [facility] Comment on above: Performed By: #### Med SHER UMICRO #### [facility] [address] [place] [address] Dr. Eran Chacon UR MICRO IND INDICATED Normal [facility] Comment on above: Performed By: #### Med SHER UMICRO #### [facility] [address] [place] [address] Dr. Eran Chacon Urobilinogen Qn (U) 0.2 {Aureliano'U}/dL Normal 0.2 - 1. 0 [facility] Comment on above: Performed By: #### E HANNA SHER #### [facility] [address] [place] [address] Dr. Eran Chacon PROF 14(COMP METB)on 06-07- 022 Albumin [Mass/Vol] 4.0 g/dL Normal 3.4-5.0 [facility] Comment on above: Performed By: #### C MP #### [facility] [address] [place] [address] Dr. Eran Chacon Albumin/Globulin [Mass ratio] 1.2 {ratio} Normal [facility] Comment on above: Performed By: #### C MP #### [facility] [address] [place] [address] Dr. Eran Chacon ALP [Catalytic activity/Vol] 104 U/L Normal 46-116 [facility] Comment on above: Performed By: #### C MP #### [facility] [address] [place] [address] Dr. Eran Chacon ALT [Catalytic activity/Vol] 28 U/L Normal 16-63 [facility] Comment on above: Performed By: #### C MP #### [facility] [address] [place] [address] Dr. Eran Chacon Anion gap [Moles/Vol] 7.2 mmol/L Normal [facility] Comment on above: Performed By: #### C MP #### [facility] [address] [place] [address] Dr. Eran Chacon AST [Catalytic activity/Vol] 14 U/L Critically low 15-37 [facility] Comment on above: Performed By: #### C MP #### [facility] [address] [place] [address] Dr. Eran Chacon Bilirubin [Mass/Vol] 0.4 mg/dL Normal 0.2-1.0 [facility] Comment on above: Performed By: #### C MP #### [facility] [address] [place] [address] Dr. Eran Chacon Calcium [Mass/Vol] 9.0 mg/dL Normal 8.5-10.1 [facility] Comment on above: Performed By: #### C MP #### [facility] [address] [address] [address] Eran Chacon Chloride [Moles/Vol] 103 mmol/L Normal 98-107 [facility] Comment on above: Performed By: #### C MP #### [facility] [address] [address] [address] Eran Chacon CO2 [Moles/Vol] 30.0 mmol/L Normal 21.0-32.0 [facility] Comment on above: Performed By: #### C MP #### [facility] [address] [address] [address] Eran Chacon Creatinine [Mass/Vol] 0.85 mg/dL Normal 0.70-1.30 [facility] Comment on above: Performed By: #### C MP #### [facility] [address] [place] [address] Dr. Eran Chacon EGFR-AF WALLISIAN >60 Normal >=60 [facility] Comment on above: Performed By: #### C MP #### [facility] [address] [place] [address] Dr. Eran Chacon EGFR-NON AF WALLISIAN >60 Normal >=60 [facility] Comment on above: Performed By: #### C MP #### [facility] [address] [address] [address] Eran Chacon Globulin (S) [Mass/Vol] 3.3 g/dL Normal [facility] Comment on above: Performed By: #### C MP #### [facility] [address] [address] [address] Eran Chacon Glucose [Mass/Vol] 165 mg/dL Critically high 74-106 [facility] Comment on above: Performed By: #### C MP #### [facility] [address] [address] [address] Eran Chacon Potassium [Moles/Vol] 4.2 mmol/L Normal 3.5-5.1 [facility] Comment on above: Performed By: #### C MP #### [facility] [address] [place] [address] Dr. Eran Chacon Protein [Mass/Vol] 7.3 g/dL Normal 6.4-8.2 [facility] Comment on above: Performed By: #### C MP #### [facility] [address] [place] [address] Dr. Eran Chacon Sodium [Moles/Vol] 136 mmol/L Normal 136-145 [facility] Comment on above: Performed By: #### C MP #### [facility] [address] [place] [address] Dr. Eran Chacon Urea nitrogen [Mass/Vol] 10.0 mg/dL Normal 7.0-18.0 [facility] Comment on above: Performed By: #### C MP #### [facility] [address] [place] [address] Dr. Eran Chacon Urea nitrogen/Creatinine [Mass ratio] 11.8 mg/mg Normal [facility] Comment on above: Performed By: #### C MP #### [facility] [address] [place] [address] Dr. Eran Chacon URINE MICROSCOPIC ONLYon BACTERIA NONE SEEN Normal NONE SEEN [facility] Comment on above: Performed By: #### BISHNU BATESRO #### [facility] [address] [place] [address] Dr. Eran Chacon Bacteria identified Cx Nom (U) NOT INDICATED Normal [facility] Comment on above: Performed By: #### Med SHER UMICRO #### [facility] [address] [place] [address] Dr. Eran Chacon CAST NONE SEEN Normal NONE SEEN [facility] Comment on above: Performed By: #### Med SHER UMICRO #### [facility] [address] [place] [address] Dr. Eran Chacon Crystals LM Nom (Urine sed) NONE SEEN Normal NONE SEEN [facility] Comment on above: Performed By: #### Med SHER UMICRO #### [facility] [address] [place] [address] Dr. Eran Chacon Epithelial cells LM Ql (Urine sed) RARE Normal NONE SEEN /RARE [facility] Comment on above: Performed By: #### E RUR, UMICRO #### [facility] [address] [address] [address] Eran Chacon MUCOUS NONE SEEN Normal NONE SEEN [facility] Comment on above: Performed By: #### E RUR, UMICRO #### [facility] [address] [address] [address] Eran Chacon RBC 0-2 Normal 0-2 [facility] Comment on above: Performed By: #### E RUR, UMICRO #### [facility] [address] [address] [address] Eran Chacon WBC 2-5 Abnormal NONE SEEN [facility] Comment on above: Performed By: #### E RUR, UMICRO #### [facility] [address] [address] [address] Eran Chacon MRI SHOULDER LT WO [...] by: YEISON NAVAS Date: 2022-02-02 17:09 Normal [facility] XR shoulder LT min 2V*on XR shoulder LT min 2V* [facility] [place] [address] [place] [address] XRay Report Signed Patient: Nicholas Ziegler MR#: [id number] : 1960 Acct:[id number] Age/Sex: 61 / M ADM Date: 01/25/22 [place] [facility] [place]: Type: [facility] Attending Dr: Kesha Trujillo MD Ordering Provider: [...] Otilia Nunez M.D.01/25/2022 11:41 AM Dictation Location: [place] [address] Transcribed By: [facility] 01/25/22 1141 Dictated By: Otilia Nunez MD 01/25/22 1139 Signed By: 01/25/22 1141 Normal [facility] Vital Signs Date Time Vital Sign Value Performing Clinician Facility 12-17-2023 08:54-0400 Body height 175.26 cm [facility] 12-17-2023 08:54-0400 Body mass index (BMI) [Ratio] 35.2 kg/m2 [facility] 12-17-2023 08:54-0400 Body weight 108.4 kg [facility] 12-17-2023 08:54-0400 Diastolic blood pressure 76 mm[Hg] [facility] 12-17-2023 08:54-0400 Heart rate 76 /min [facility] 12-17-2023 08:54-0400 Systolic blood pressure 154 mm[Hg] [facility] 12-05-2023 08:52-0400 Body height 175.26 cm [facility] 12-05-2023 08:52-0400 Body mass index (BMI) [Ratio] 35 kg/m2 [facility] 12-05-2023 08:52-0400 Body weight 107.67 kg [facility] 12-05-2023 08:52-0400 Diastolic blood pressure 78 mm[Hg] [facility] 12-05-2023 08:52-0400 Heart rate 69 /min [facility] 12-05-2023 08:52-0400 Systolic blood pressure 147 mm[Hg] [facility] 09-13-2023 13:30-0500 Body height 175.26 cm Hannah Magallanes Other [facility] 09-13-2023 13:30-0500 Body mass index (BMI) [Ratio] 33.22 kg/m2 Hannah Magallanes Other [facility] Other 09-13-2023 13:30-0500 Body temperature 98.4 [degF] Hannah Magallanes Other [facility] Other 09-13-2023 13:30-0500 Body weight 102.06 kg Hannah Magallanes Other [facility] Other 09-13-2023 13:30-0500 Body weight 102.05 kg [facility] 09-13-2023 13:30-0500 Diastolic blood pressure 80 mm[Hg] Hannah Magallanes Other [facility] 09-13-2023 13:30-0500 SaO2% (BldA) [Mass fraction] 93 % Hannah Magallanes Other [facility] [employer] Other 09-13-2023 13:30-0500 Systolic blood pressure 118 mm[Hg] Hannah Magallanes Other [facility] 08-13-2023 10:30-0500 Body height 175.26 cm Hannah Magallanes Other [employer] [facility] Other 08-13-2023 10:30-0500 Body mass index (BMI) [Ratio] 33.9 kg/m2 Hannah Magallanes Other [facility] Other 08-13-2023 10:30-0500 Body weight 104.15 kg Hannah Magallanes Other [employer] [facility] Other 08-13-2023 10:30-0500 Diastolic blood pressure 78 mm[Hg] Hannah Magallanes Other [employer] [facility] Other 08-13-2023 10:30-0500 Systolic blood pressure 124 mm[Hg] Hannah Magallanes Other [employer] Other 06-25-2023 08:45-0500 Body height 175.26 cm Hannah Magallanes Other [employer] [facility] Other 06-25-2023 08:45-0500 Body mass index (BMI) [Ratio] 33.37 kg/m2 Hannah Magallanes Other [employer] [facility] Other 06-25-2023 08:45-0500 Body temperature 96.5 [degF] Hannah Magallanes Other [employer] [facility] [facility] Other 06-25-2023 08:45-0500 Body weight 102.51 kg Hannah Magallanes Other [employer] [facility] Other 06-25-2023 08:45-0500 Diastolic blood pressure 85 mm[Hg] Hannah Magallanes Other [employer] [facility] Other 06-25-2023 08:45-0500 Systolic blood pressure 149 mm[Hg] Hannah Magallanes Other [employer] [facility] Other 05-28-2023 10:45-0400 Body height 175.26 cm Hannah Magallanes Other [employer] [facility] Other 05-28-2023 10:45-0400 Body mass index (BMI) [Ratio] 33.52 kg/m2 Hannah Magallanes Other [facility] Other 05-28-2023 10:45-0400 Body weight 102.97 kg Hannah Magallanes Other [employer] [facility] Other 05-28-2023 10:45-0400 Diastolic blood pressure 82 mm[Hg] Hannah Magallanes Other [employer] Other 05-28-2023 10:45-0400 Systolic blood pressure 147 mm[Hg] Hannah Magallanes Other [employer] [facility] Other 2023 08:45-0400 Body height 175.26 cm Hannah Magallanes Other [employer] [facility] Other 2023 08:45-0400 Body mass index (BMI) [Ratio] 33.52 kg/m2 Hannah Magallanes Other [employer] Other 2023 08:45-0400 Body weight 102.97 kg Hannah Magallanes Other [employer] Other 2023 08:45-0400 Diastolic blood pressure 85 mm[Hg] Hannah Magallanes Other [employer] Other 2023 08:45-0400 Systolic blood pressure 156 mm[Hg] Hannah Magallanes Other [employer] [facility] Other 04-30-2023 09:45-0400 Body height 175.26 cm Hannah Magallanes Other [employer] [facility] Other 04-30-2023 09:45-0400 Body mass index (BMI) [Ratio] 34.32 kg/m2 Hannah Magallanes Other [employer] [facility] [facility] Other 04-30-2023 09:45-0400 Body temperature 96.2 [degF] Hannah Magallanes Other [employer] Other 04-30-2023 09:45-0400 Body weight 105.42 kg Hannah Magallanes Other [employer] Other 04-30-2023 09:45-0400 Diastolic blood pressure 78 mm[Hg] Hannah Magallanes Other [employer] Other 04-30-2023 09:45-0400 Respiratory rate 16 /min Hannah Magallanes Other [employer] [facility] Other 04-30-2023 09:45-0400 Systolic blood pressure 146 mm[Hg] Hannah Magallanes Other [employer] Other 02-20-2023 09:15-0400 Body height 175.26 cm Hannah Magallanes Other [employer] [facility] Other 02-20-2023 09:15-0400 Body mass index (BMI) [Ratio] 33.46 kg/m2 Hannah Magallanes Other [employer] [facility] Other 02-20-2023 09:15-0400 Body weight 102.79 kg Hannah Magallanes Other [employer] [facility] Other 02-20-2023 09:15-0400 Diastolic blood pressure 77 mm[Hg] Hannah Magallanes Other [employer] [facility] Other 02-20-2023 09:15-0400 Systolic blood pressure 131 mm[Hg] Hannah Magallanes Other [employer] [facility] Other 01-17-2023 08:45-0400 Body height 175.26 cm Hannah Magallanes Other [employer] [facility] Other 01-17-2023 08:45-0400 Body mass index (BMI) [Ratio] 33.37 kg/m2 Hannah Magallanes Other [employer] [facility] Other 01-17-2023 08:45-0400 Body weight 102.51 kg Hannah Magallanes Other [employer] [facility] Other 01-17-2023 08:45-0400 Diastolic blood pressure 79 mm[Hg] Hannah Magallanes Other [employer] Other 01-17-2023 08:45-0400 Systolic blood pressure 128 mm[Hg] Hannah Magallanes Other [employer] [facility] Other 11-23-2022 09:30-0400 Body height 175.26 cm Hannah Magallanes Other [employer] Other 11-23-2022 09:30-0400 Body mass index (BMI) [Ratio] 33.96 kg/m2 Hannah Magallanes Other [employer] Other 11-23-2022 09:30-0400 Body weight 104.33 kg Hannah Magallanes Other [employer] Other 11-23-2022 09:30-0400 Diastolic blood pressure 72 mm[Hg] Hannah Magallanes Other [employer] [facility] Other 11-23-2022 09:30-0400 Systolic blood pressure 122 mm[Hg] Hannah Magallanes Other [employer] [facility] [facility] Other 09-04-2022 11:30-0500 Body height 175.26 cm Hannah Magallanes Other [employer] [facility] Other 09-04-2022 11:30-0500 Body mass index (BMI) [Ratio] 33.52 kg/m2 Hannah Magallanes Other [employer] [facility] Other 09-04-2022 11:30-0500 Body weight 102.97 kg Hannah Magallanes Other [employer] [facility] Other 09-04-2022 11:30-0500 Diastolic blood pressure 80 mm[Hg] Hannah Magallanes Other [facility] Other 09-04-2022 11:30-0500 SaO2% (BldA) [Mass fraction] 95 % Hannah Magallanes Other [employer] [facility] Other 09-04-2022 11:30-0500 Systolic blood pressure 122 mm[Hg] Hannah Magallanes Other [facility] Other 02-06-2022 12:45-0400 Body height 175.26 cm Kesha Olexa Other [employer] [facility] Other 02-06-2022 12:45-0400 Body mass index (BMI) [Ratio] 31.01 kg/m2 Kesha Olexa Other [employer] [facility] [facility] Other 02-06-2022 12:45-0400 Body weight 95.26 kg Kesha Olexa Other [facility] Other 05-26-2021 13:15-0400 Body height 175.26 cm Harriet Ginty Other [employer] [facility] Other 05-26-2021 13:15-0400 Body mass index (BMI) [Ratio] 31.01 kg/m2 Harriet Ginty Other [facility] Other 05-26-2021 13:15-0400 Body temperature 98.3 [degF] Harriet Ginty Other [facility] Other 05-26-2021 13:15-0400 Body weight 95.26 kg Harriet Ginty Other [facility] Other 05-26-2021 13:15-0400 SaO2% (BldA) [Mass fraction] 96 % Harriet Ginty Other [employer] [facility] [facility] Other Encounters Encounter Date Encounter Type Care Provider Facility Start: 12-17-2023 End: 12-17-2023 ambulatory [facility] Work Phone: Start: 12-17-2023 End: 12-17-2023 Patient encounter procedure [facility] Work Phone: Start: 12-05-2023 End: 12-05-2023 ambulatory [facility] Work Phone: Start: 12-05-2023 End: 12-05-2023 Patient encounter procedure [facility] Work Phone: Start: 10-23-2023 Non-patient / Non-visit [facility] Work Phone: Start: 10-08-2023 Non-patient / Non-visit [facility] Work Phone: Start: 10-07-2023 End: 10-07-2023 ambulatory BARBIE Tellez [facility] Not Available Start: 09-18-2023 End: 09-18-2023 ambulatory Hannah Magallanes Other [facility] Other Start: 09-18-2023 Telephone encounter Hannah Sona [facility] Start: 09-13-2023 End: 09-13-2023 ambulatory Hannah Sona Other [facility] Other Start: 09-13-2023 Office outpatient vi sit 15 minutes Hannah Magallanes [facility] Start: 09-13-2023 End: 09-13-2023 Patient encounter procedure [facility]- Start: 09-11-2023 Telephone encounter Argentina coleman PT Work Phone: [facility] Comment on above: re: PT Eval (He call ed noting he had just gotten out of the hospital and is feeling weak and needs to cx PT Eval on 09/13. I recommended rs but he said based on how he feels, he'll call back on 09/13 to verify status and rs if possible.); fu (Tried to contact to check status and there was no answer; requested a call back reinier.); fu x2 (Tried to contact but had to lm; requested call back to rs & check status.); Call Back (He called back noting still not feeling good enough to start PT. He does have fu w/ [facility] 10/07; hopefully he'll be able to start-up prior.); FU x3 (Tried to contact to check status and if we'd be able to rs Eval but had to lm. Requested call back reinier.) Start: 09-10-2023 End: 09-10-2023 ambulatory Hannah Magallanes Other [facility] Other Start: 09-10-2023 Telephone encounter Hannah Magallanes [facility] Start: 09-06-2023 End: 09-06-2023 ambulatory Hannah Magallanes Other [facility] Other Start: 09-06-2023 Telephone encounter Hannah Magallanes [facility] Start: 09-02-2023 End: 09-02-2023 ambulatory HI [facility] Not Available Start: 08-20-2023 End: 08-20-2023 ambulatory Hannah Magallanes Other [facility] Other Start: 08-20-2023 Telephone encounter Hannah Magallanes [facility] Start: 08-13-2023 End: 08-13-2023 ambulatory Hannah Magallanes Other [facility] Other Start: 08-13-2023 Office outpatient vi sit 25 minutes Hannah Magallanes [facility] Start: 08-13-2023 Telephone encounter Hannah Magallanes [facility] Start: 08-06-2023 End: 08-06-2023 ambulatory Hannah Magallanes Other [facility] Other Start: 08-06-2023 Telephone encounter Hannah Magallanes [facility] Start: 07-29-2023 End: 07-29-2023 ambulatory HI [facility] Not Available Start: 07-22-2023 End: 07-22-2023 ambulatory Hannah Magallanes Other [facility] Other Start: 07-22-2023 Telephone encounter Hannah Magallanes [facility] Start: 07-19-2023 End: 07-19-2023 ambulatory Hannah Magallanes Other [facility] Other Start: 07-19-2023 Telephone encounter Hannah Magallanes [facility] Start: 07-18-2023 End: 07-18-2023 ambulatory Hannah Magallanes Other [facility] Other Start: 07-18-2023 Telephone encounter Hannah Magallanes [facility] Start: 07-02-2023 End: 07-02-2023 ambulatory Hannah Magallanes Other [facility] Other Start: 07-02-2023 Office outpatient vi sit 15 minutes Hannah Magallanes [facility] Start: 07-02-2023 Telephone encounter Hannah Magallanes [facility] Start: 06-25-2023 End: 06-25-2023 ambulatory Hannah Magallanes Other [facility] Other Start: 06-25-2023 Office outpatient vi sit 15 minutes Hannah Magallanes [facility] Start: 06-21-2023 End: 06-21-2023 ambulatory Hannah Magallanes Other [facility] Other Start: 06-21-2023 Encounter by compute r link Hannah Magallanes [facility] Start: 06-20-2023 End: 06-20-2023 ambulatory Hannah Magallanes Other [facility] Other Start: 06-20-2023 Telephone encounter Hannah Magallanes [facility] Start: 06-17-2023 End: 06-17-2023 ambulatory Hannah Magallanes Other [facility] Other Start: 06-17-2023 Telephone encounter Hannah Magallanes [facility] Start: 06-10-2023 End: 06-10-2023 ambulatory Hannah Magallanes Other [employer] Other Start: 06-10-2023 Telephone encounter Hannah Magallanes [facility] Start: 06-03-2023 End: 06-03-2023 ambulatory Hannah Sona Other [employer] Other Start: 06-03-2023 Telephone encounter Hannah Sona [facility] Start: 05-30-2023 End: 05-31-2023 ambulatory Hi Pocos Facility:[facility] Start: 05-30-2023 End: 05-30-2023 Patient encounter procedure Barbie Tellez Pocos [facility] Start: 05-28-2023 End: 05-28-2023 ambulatory Hannah Magallanes Other [employer] Other Start: 05-28-2023 Office outpatient vi sit 15 minutes Hannah Magallanes [facility] Start: 2023 End: 2023 ambulatory Hannah Sona Other [employer] Other Start: 2023 Office outpatient vi sit 15 minutes Hannah Sona [facility] Start: 05-16-2023 End: 05-16-2023 ambulatory Hannah Soan Other [employer] Other Start: 05-16-2023 Telephone encounter Hannah Sona [facility] Start: 04-30-2023 End: 04-30-2023 ambulatory Hannah Sona Other [employer] Other Start: 04-30-2023 Office outpatient vi sit 15 minutes Hannah Sona [facility] Start: 04-26-2023 End: 04-26-2023 ambulatory Hannah Sona Other [employer] Other Start: 04-26-2023 Telephone encounter Hannah Sona [facility] Start: 04-23-2023 End: 04-23-2023 ambulatory Hannah Sona Other [employer] Other Start: 04-23-2023 Telephone encounter Hannah Sona [facility] Start: 03-25-2023 End: 03-25-2023 ambulatory Hannah Sona Other [employer] Other Start: 03-25-2023 Telephone encounter Hannah Sona [facility] Start: 03-06-2023 End: 03-06-2023 ambulatory Hannah Magallanes Other [employer] Other Start: 03-06-2023 Telephone encounter Hannah Sona [facility] Start: 02-20-2023 End: 02-20-2023 ambulatory Hannah Magallanes Other [employer] Other Start: 02-20-2023 Office outpatient vi sit 25 minutes Hannah Sona [facility] Start: 02-05-2023 End: 02-05-2023 ambulatory Hannah Sona Other [employer] Other Start: 02-05-2023 Telephone encounter Hannah Sona [facility] Start: 01-21-2023 End: 01-21-2023 ambulatory Hannah Magallanes Other [employer] Other Start: 01-21-2023 Telephone encounter Hannah Sona [facility] Start: 01-17-2023 End: 01-17-2023 ambulatory Hannah Magallanes Other [employer] Other Start: 01-17-2023 Office outpatient vi sit 15 minutes Hannah Sona [facility] Start: 12-24-2022 End: 12-24-2022 ambulatory Hannah Magallanes Other [employer] Other Start: 12-24-2022 Telephone encounter Hannah Sona [facility] Start: 12-03-2022 End: 12-03-2022 ambulatory Hannah Sona Other [employer] Other Start: 12-03-2022 Telephone encounter Hannah Sona [facility] Start: 11-27-2022 End: 11-27-2022 ambulatory Hannah Magallanes Other [employer] Other Start: 11-27-2022 Telephone encounter Hannah Magallanes [facility] Start: 11-26-2022 End: 11-26-2022 ambulatory Hannah Magallanes Other [employer] Other Start: 11-26-2022 Telephone encounter Hannah Magallanes [facility] Start: 11-24-2022 End: 11-25-[address] HANNAH MAGALLANES Facility:[facility] Start: 11-23-2022 End: 11-23-2022 ambulatory Hannah Magallanes Other [employer] Other Start: 11-23-2022 Office outpatient vi sit 15 minutes Hannah Magallanes [facility] Start: 11-05-2022 End: 11-05-2022 ambulatory Hannah Magallanes Other [employer] Other Start: 11-05-2022 Telephone encounter Hannah Magallanes [facility] Start: 10-03-2022 End: 10-03-2022 ambulatory Hannah Magallanes Other [employer] Other Start: 10-03-2022 Telephone encounter Hannah Magallanes [facility] Start: 09-04-2022 End: 09-04-2022 ambulatory Hannah Magallanes Other [employer] Other Start: 09-04-2022 Office outpatient vi sit 25 minutes Hannah Magallanes [facility] Start: 07-26-[address] HANNAH MAGALLANES Facil ity:[facility] Start: 07-19-2022 End: 07-20-[address] WILFREDO ENGLE Facility:[facility] Start: 06-07-2022 End: 06-07-[address] HANNAH MAGALLANES Facility:[facility] Start: 03-15-2022 ambulatory KESHA TRUJILLO Facility:[facility] Start: 02-06-2022 End: 02-06-2022 ambulatory Kesha Trujillo Other [employer] Other Start: 02-06-2022 Office outpatient vi sit 25 minutes Kesha Trujillo [facility] Start: 02-02-2022 End: 02-03-2022 ambulatory KESHA TRUJILLO Facility:[facility] Start: 12-28-2021 End: 12-28-[address] HANNAH MAGALLANES Facility:[facility] Start: 12-12-2021 End: 12-13-[address] [facility] Other Start: 12-12-2021 Office outpatient ne w 30 minutes Kesha Trujillo [facility] Start: 05-26-2021 Office outpatient vi sit 15 [...] ant neoplasm of prostate Hannah Magallanes Other Plan of Treatment Date Care Activity Detail Author Start: 10-07-2023 End: 10-07-2023 Patient encounter procedure 10/07/2023 8:00 AM EST Office Visit [facility] [address] [place] [address] Barbie Tapia DO [address] [place] [address] [facility] XR Pelvis and Hip - bilateral Views [facility] Immunizations Immunization Date Immunization Notes Care Provider Fa cility 06-02-2018 Influenza, injectabl e, Madin Kyleigh Canine Kidney, preservative free, quadrivalent Argentina Clinton PT Work Phone: [facility] 05-17-2017 influenza virus vaccine, split virus (incl. purified surface antigen) Hannah Magallanes Other [employer] Other 05-17-2017 influenza virus vaccine, unspecified formulation [facility] 05-16-2017 influenza, injectabl e, quadrivalent, preservative free Argentina Clinton PT Work Phone: [facility] 06-28-2016 influenza, injectabl e, quadrivalent, preservative free Argentinacurtis Clinton PT Work Phone: [facility] 06-28-2016 tetanus and diphther ia toxoids, adsorbed, preservative free, for adult use (5 Lf of tetanus toxoid and 2 Lf of diphtheria toxoid) Hannah Magallanes Other [facility] 05-25-2015 influenza, seasonal, injectable, preservative free Argentina Clinton PT Work Phone: [facility] 05-25-2015 tetanus and diphther ia toxoids, adsorbed, preservative free, for adult use (5 Lf of tetanus toxoid and 2 Lf of diphtheria toxoid) Hannah Magallanes Other [facility] 06-15-1999 pneumococcal conjuga te vaccine, 7 valent Argentina Clinton PT Work Phone: [facility] Payers Date Payer Category Payer Medicaid MEDICAID [facility] [id number] 2021-Present [phone] [address] [place] [address] Medicaid [id number] 2013 Medicare MEDICARE MEDICAR E PART B [id number] 2013-Present [address] [address] [place] [address] Medicare [id number] 1960 Unknown [id number] 1960 Unknown [id number] [id number] 1960 Unknown [id number] [id number] 1960 Unknown [id number] [id number] 1960 Unknown [id number] [id number] 1960 Unknown [id number] [id number] 1960 Unknown [id number] [id number] 1960 Unknown [id number] [id number] 1960 Unknown [id number] [id number] 1960 Unknown [id number] 2.16.840.1.874136.3.579.2.1259 1960 Unknown [id number] 2.16.840.1.876069.3.579.2.1259 1960 Unknown [id number] [id number] 1960 Unknown [id number] [id number] 1959 Medicaid [id number] [id number] 1959 Medicare [id number] Self-pay Self Pay [id number] Social History Date Type Detail Facility Start: 09-02-2023 Sex Assigned At [facility] Tobacco smoking status No Smokin g Status Entered [facility] Start: 03-27-2023 Tobacco smoking status MIIS Smokes tobacco daily [facility] Work Phone: History of tobacco use [facility]igarette [facility] Start: 03-27-2023 End: 09-02-2023 Cigarettes smoked current (pack per day) - Reported 0.5 [facility] Start: 03-27-2023 Tobacco use and exposure Smokeless tobacco non-user [facility] Start: 09-02-2023 Alcohol intake Lifetime non-drinker (finding) [facility] Start: 03-27-2023 Alcohol Comment Caffine- Soda [facility] Start: 1960 Sex Assigned At Male [facility] Start: 08-21-2023 Gender identity Identifies as male gender (finding) [facility] Start: 08-21-2023 Sexual orientation Heterosexual (finding) [facility] Start: 02-06-2017 Tobacco smoking status NHIS Ex-smoker (finding) [facility] Medical Equipment Procedure Code Equipment Code Equipment Original Text Equi pment Identifier Dates Accu-Chek [employer]ix Lancet - Clinical Notes 05-26-2021 to 10-02-2023 Telephone Encounter - Maris Tavera - 10/02/2023 1:35 PM [facility] 1:35 PM EST Note Date & Type Note Facility 10-02-2023 Telephone encounter Note Form atting of this note might be different from the original. No attempts to hear back; closing referral. [facility] 10-02-2023 Miscellaneous Notes Formattin g of this note might be different from the original. No attempts to hear back; closing referral. documented in this encounter [facility] 09-13-2023 Evaluation note Encounter Date Diagnosis Assessment Notes Aug, Chronic obstructive pulmonary disease, unspecified (ICD-10 - J44.9) Finish antibiotics and prednisone as prescribed. Denies pulmonary referral at this time. Hasn't smoked since 09/08 and declines chantix or patches. Aug, Current smoker (ICD-10 - F17.200) [employer] Other 01-23-2024 Evaluation note* Encounter Date Diagnosis Assessment Notes Treatment Notes Treatment Clinical Notes Aug, Lumbar radicular pain (ICD-10 - M54.16) [employer] [facility] Other 01-19-2024 Evaluation note* Encounter Date Diagnosis Assessment Notes Treatment Notes Treatment Clinical Notes Aug, Lumbar radicular pain (ICD-10 - M54.16) [employer] Other 12-26-2023 Evaluation note* Encounter Date Diagnosis Assessment Notes Treatment Notes Treatment Clinical Notes Jul, Type 2 diabetes mellitus with hyperglycemia, without long-term current use of insulin (ICD-10 - E11.65) [employer] [facility] Other 12-26-2023 Evaluation note* Encounter Date Diagnosis Assessment Notes Treatment Notes Treatment Clinical Notes Jul, Rotator cuff dysfunction, right (ICD-10 - M67.911) Discussed that Dr. Tapia will manage his pain meds 2 weeks postoperatively. Pt is allergic to NSAIDS. EKG from June is attached. Nicholas is cleared for surgery next week. Jul, Type 2 diabetes mellitus with hyperglycemia, without long-term current use of insulin (ICD-10 - E11.65) Improved overall. Continue present med and dose. Jul, Disc degeneration, lumbar (ICD-10 - M51.36) Previously controlled on T3s. Neurology was treating him with regular injections as well. Plan is to return to T3s after shoulder pain has improved post-operatively. [employer] [facility] Other 12-04-2023 Evaluation note* Encounter Date Diagnosis Assessment Notes Treatment Notes Treatment Clinical Notes Jul, Type 2 diabetes mellitus with hyperglycemia, without long-term current use of insulin (ICD-10 - E11.65) [employer] Other 12-01-2023 Evaluation note* Encounter Date Diagnosis Assessment Notes Treatment Notes Treatment Clinical Notes Jul, Type 2 diabetes mellitus with hyperglycemia, without long-term current use of insulin (ICD-10 - E11.65) [employer] Other 11-30-2023 Evaluation note* Encounter Date Diagnosis Assessment Notes Treatment Notes Treatment Clinical Notes Jun, Labral tear of shoulder, right, subsequent encounter (ICD-10 - S43.431D) [employer] [facility] Other 11-14-2023 Evaluation note* Encounter Date Diagnosis [...] pain (ICD-10 - R07.9) r/o cardiac cause [employer] Other 11-07-2023 Evaluation note* Encounter Date Diagnosis [...] to decrease dose and possibly discontinue medication. [employer] [facility] Other 11-02-2023 Evaluation note* Encounter Date Diagnosis Assessment Notes Treatment Notes Treatment Clinical Notes Jun, Acute pain of right shoulder (ICD-10 - M25.511) [employer] Other 10-30-2023 Evaluation note* Encounter Date Diagnosis Assessment Notes Treatment Notes Treatment Clinical Notes May, Acute pain of right shoulder (ICD-10 - M25.511) [employer] Other 10-23-2023 Evaluation note* Encounter Date Diagnosis Assessment Notes Treatment Notes Treatment Clinical Notes May, Acute pain of right shoulder (ICD-10 - M25.511) [employer] Other 10-16-2023 Evaluation note* Encounter Date Diagnosis Assessment Notes Treatment Notes Treatment Clinical Notes May, Acute pain of right shoulder (ICD-10 - M25.511) [employer] [facility] Other 10-10-2023 Evaluation note* Encounter Date Diagnosis Assessment Notes Treatment Notes Treatment Clinical Notes May, Acute pain of right shoulder (ICD-10 - M25.511) MRI and surgery planning pending. Pt understands this is a controlled substance and to call in 1 week w update on treatment plan. May, Bronchitis (ICD-10 - J40) Finish antibiotic, rest, hydrate Steroids for wheezing. [employer] [facility] Other 10-04-2023 Evaluation note* Encounter Date Diagnosis Assessment Notes Treatment Notes Treatment Clinical Notes May, Acute pain of right shoulder (ICD-10 - M25.511) Reviewed [place] and discussed short term plan of increase in pain medication. He is due for a refill of the T3s presently. Stop them, replace w norco. Pt understands weekly prescription and will need to d/c after anticipated surgery. [employer] Other 09-12-2023 Evaluation note* Encounter Date Diagnosis [...] states I can share notes w Dr. Tapia from our office and the ER visit on 04/26 [employer] Other 07-05-2023 Evaluation note* Encounter Date Diagnosis Assessment Notes Treatment Notes Treatment Clinical Notes Feb, Epigastric abdominal pain (ICD-10 - R10.13) Referral Dr. aMrtinez Feb, Other elevated white blood cell (WBC) [...] and will need less prn pain med. [employer] [facility] Other 06-01-2023 Evaluation note* Encounter Date Diagnosis Assessment Notes Treatment Notes Treatment Clinical Notes Jan, RUQ pain (ICD-10 - R10.11) Discussed differential. continues to decline c-scope. start w labs and GBUS. Jan, Other chronic pain (ICD-10 - G89.29) Jan, Pain in right shoulder (ICD-10 - M25.511) Pt requests referral to Dr. Tapia - milly hopes for intrarticular injections. Jan, Pain in left shoulder (ICD-10 - M25.512) as above. [employer] Other 04-17-2023 Evaluation note* Encounter Date Diagnosis Assessment Notes Treatment Notes Treatment Clinical Notes Nov, Bronchitis (ICD-10 - J40) [employer] Other 04-11-2023 Evaluation note* Encounter Date Diagnosis Assessment Notes Treatment Notes Treatment Clinical Notes Nov, Disc degeneration, lumbar (ICD-10 - M51.36) Nov, Lumbar radicular pain (ICD-10 - M54.16) [employer] [facility] Other 04-07-2023 Evaluation note* Encounter Date Diagnosis [...] quit smoking. Pt verbalizes understanding and agreement. [employer] Other 02-15-2023 Evaluation note* Encounter Date Diagnosis Assessment Notes Treatment Notes Treatment Clinical Notes Sep, Lumbar radicular pain (ICD-10 - M54.16) [employer] Other 01-17-2023 Evaluation note* Encounter Date Diagnosis [...] is outlined on the test result page. [employer] Other 10-20-2022 NoteIndication: Calculus in kidney. Comparison: [...] Electronically authenticated by: JOHN PINTO Date: 2022-06-07 20:07[facility]06-21-2022 Evaluation note* Encounter Date Diagnosis Assessment Notes [...] of infection, hardware pullout, cuff repair failure, halfway pain and stiffness are well known problems [...] of repair, infection and wound healing delays. [employer] Other 04-26-2022 NotePROCEDURE: XR SHOULDER LT 2V or > COMPARISON: None. HISTORY: Pain of left shoulder joint FINDINGS: BONES:No acute fracture or dislocation. 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 No visible soft tissue swelling. EFFUSION:None visible. OTHER: Negative. IMPRESSION: Mild osteoarthritis Electronically authenticated by: BARBIE MEMBRENO Date: 2021-12-12 15:[address] [place], [place] [id number] Evaluation note* Encounter Date Diagnosis Assessment Notes [...] pain of left shoulder (ICD-10 - M25.512) [facility] [employer] Other 10-08-2021 Evaluation note* Encounter Date Diagnosis [...] as needed for cough. Advised patient that [place] contains antihistamine and cough suppressant and to be cautious using other OTC cold medications. Patient to follow up with PCP if symptoms do not improve. Immediate eval if SOB, difficulty breathing, chest pain, dizziness, or other concerning symptoms. Patient verbalizes understanding and is agreeable to treatment plan [facility] [employer] Other Evaluation + Plan note No data available for this section [facility] noteNo [facility] [employer] Other Evaluation note* Diagnosis Onset Date Resolution Status Arthralgia acute Lumbar pain acute Type II diabetes mellitus ac cole [facility] Work Phone: Evaluation note* Diagnosis Onset Date Resolution Status Arthralgia acute Lumbar pain acute Type II diabetes mellitus ac cole Bilateral hip pain acute [facility] Work Phone: History general Narrative - Reported* Type Description Date Medical History Asthma Medical History skin cancer-lip Surgical History Left lung biopsy 1977 Surgical History L4 and L5 disc fusion 1984 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 [employer] Other Hospital Discharge instructions No data available for this section [facility] No data available for this section [facility] Summary Purpose Family History Relationship Condition Age at Onset Recorded Date/T alayna father Unknown Malignant neoplasm Unknown Not Specified Unknown Advance Directives Advance Directive Response Recorded Date/ Time Advance Directives No January 25 9:53am Reason for Referral Reason *FU 02/27 Epigastr ic pain, gall bladder polyp. Agrees to treatment, except colonoscopy. Last OV and today, labs and US scanned into chart. thanks Diagnosis 1 Epigastric abdominal pain (R10.13) Referral Organization [facility] Referring Provider First Name Hannah Referring Provider Last Name Sona Referring Provider Specialty [facility] [employer] [facility] Referred Organization [facility] Referred Provider Sai Martinez Referred Address ,[place], [place],[address] Referred Provider Specialty Surgery Referral Priority Routine General Notes Es Camilo 11:38:02 AM >received today, attachments made, notes locked, referral faxed Reason 01/28/23 Access Or tho - B shoulder pain L>R - hopes for injections. Diagnosis 1 Pain in right should er (M25.511) Referral Organization [facility] Referring Provider First Name Hannah Referring Provider Last Name Sona Referring Provider [facility] [employer] Referred Organization [facility] Referred Provider Barbie Tapia Referred Address ,[place], [place],[address] Referred Provider Specialty Orthopaedic Surgery Referral Priority [...] in right should er (M25.511) Referral Organization [facility] Referring Provider First Name Hannah Referring Provider Last Name Sona Referring Provider Specialty [facility] Referred Organization [facility] Referred Provider Barbie Tapia Referred Address ,[place], [place],[address] Referred Provider Specialty Orthopaedic Surgery Referral Priority Routine General Notes Es Camilo 03:00:30 PM >received today, notes note locked, will fax when done Es Camilo 01/21/2023 10:35:11 AM >sent TE to have notes locked Chief Complaint and Reason for Visit Chief Complaint Tbh Amb Documentation Amb Documentation JOINTS HURTING Reason for Visit Arthralgia Lumbar pain Type II diabetes mellitus Chief Complaint Amb Documentation Amb Documentation JOINTS HURTING go over labs Reason for Visit Arthralgia Lumbar pain Type II diabetes mellitus Bilateral hip pain Additional Source Comments REASON FOR VISIT (unrecogniz ed section and content) Reason Onset Date Comments re: PT Eval 09/11/2023 He called noting he had just gotten out of the hospital and is feeling weak and needs to cx PT Eval on 09/13. I recommended rs but he said based on how he feels, he'll call back on 09/13 to verify status and rs if possible. fu 09/16/2023 Tried to contact to check status and there was no answer; requested a call back reinier. fu x2 09/18/2023 Tried to contact but had to lm; requested call back to rs & check status. Call Back 09/19/2023 He called back n oting still not feeling good enough to start PT. He does have fu w/ [facility] 10/07; hopefully he'll be able to start-up prior. FU x3 09/26/2023 Tried to contact to check status and if we'd be able to rs Eval but had to lm. Requested call back reinier. (unrecognized sect ion and content) No Status Records FoundNo Status Records FoundNo Status Records FoundNo Status Records Found INFORMATION SOURCE (unrecogn ized section and content) DATE CREATED AUTHOR 02/10/2022 [facility] DATE CREATED AUTHOR AUTHOR'S ORGANIZ ATION 12/04/2022 [facility] DATE CREATED AUTHOR AUTHOR'S ORGANIZ ATION 06/01/2023 [facility] DATE CREATED AUTHOR AUTHOR'S ORGANIZ ATION 10/07/2023 [facility] EPIC Patient Care team informatio n (unrecognized section and content) Team Status: Active Member Role Status Dates Hannah Magallanes MD Primary Care Provider Active Team Status: Active Member Role Status Dates Hannah Magallanes MD Primary Care Provider Active Start: October 08, 2023 STEPHANY Davies Attending Provider Active Start : October 08, 2023 Team Status: Active Member Role Status Gloria Magallanes MD Primary Care Provider Active Start: October 23, 2023 STEPHANY Davies Attending Provider Active Start : October 23, 2023 Team Status: Inactive Member Role Status Gloria Magallanes MD Primary Care Provide r, Attending Provider Active Start: December 05, 2023 End: December 05, 2023 Team Status: Inactive Member Role Status Gloria Magallanes MD Primary Care Provide r, Attending Provider Active Start: December 17, 2023 End: December 17, 2023 Deli Worker Relationship Specialty Start Date End Date Hannah Magallanes MD [address] [place] [address] PCP - General Family Medicine 01/23/23 Team Status: Active Member Role Status Gloria Magallanes MD Primary Care Provider Active Team Status: Inactive Member Role Status Gloria Magallanes MD Attending Provider Active St art: September 13, 2023 End: September 13, 2023 Team Status: Active Member Role Status Gloria Magallanes MD Primary Care Provider Active Start: October 08, 2023 STEPHANY Davies Attending Provider Active Start : October 08, 2023 Team Status: Active Member Role Status Gloria Magallanes MD Primary Care Provider Active Start: October 23, 2023 STEPHANY Davies Attending Provider Active Start : October 23, 2023 Team Status: Inactive Member Role Status Gloria Magallanes MD Primary Care Provide r, Attending Provider Active Start: December 05, 2023 End: December 05, 2023 Team Status: Inactive Member Role Status Gloria Magallanes MD Primary Care Provide r, Attending Provider Active Start: December 17, 2023 End: December 17, 2023 Goals (unrecognized section and content) Goals may be documented in a n alternate section FOR RECORDS PERTAINING TO PATIENTS WHO ARE [...] BE BASED ON THE PRIMARY CLINICAL RECORDS. [facility] provides no warranty or guarantee of the accuracy or completeness of information in this document.
--- NOTE | 2023-12-26 08:09 | PM.CN ---
Consult Note: HPI Data of Consult Patient: new to practice Consult date: 12/26/23 Requesting Physician: Janneth Villalta NP Primary Care Provider: Hannah Gallo MD Consult Narrative Reason for consult: establish Narrative: Nicholas Ziegler a pleasant 63 year old male with an extensive history of chronic low back pain post lumbar surgery in 1984, patient reports disc removal and possible fusion. Patient also has a significant history of bilateral hip and groin pain. Patient rating low back and bilateral hip pain 8/10 stabbing pressure stinging, increasing to 10/10 with twisting pushing pulling standing too long transitioning walking activity stairs, pain improved slightly when lying in recliner. Patient has failed to benefit from tylenol, allergy to NSAIDs, failed oxycodone-acetaminophen 5-325mgs, hydrocodone-acetaminophen 10mgs, tylenol #3 1-2 tabs TID, gabapentin unknown dosage. Patient recently on prednisone for sinus issues without improvement in pain. Patient has failed to benefit from PT and HEP greater than 6 weeks, increases his pain. No recent imaging. Previously a patient at [facility] receiving epidurals q2 months for 7 years per patient, last MAGAN 07/11 with benefit. cc:: CC: Janneth Villalta NP Review of Systems ROS Status of ROS 10 or more systems reviewed and unremarkable except as noted in history and below Musculoskeletal Reports: back pain and joint pain [facility] Medical History (Updated 12/26/23 @ 08:16 by Janneth Villalta NP) Tobacco user ?Z72.0 - Tobacco use (ICD-10) Type 2 diabetes mellitus with hyperglycemia ?E11.65 - Type 2 diabetes mellitus with hyperglycemia (ICD-10) Acute exacerbation of chronic obstructive pulmonary disease (COPD) ?J44.1 - Chronic obstructive pulmonary disease with (acute) exacerbation (ICD-10) Lumbar degenerative disc disease ?M51.36 - Other intervertebral disc degeneration, lumbar region (ICD-10) Influenza ?J11.1 - Influenza due to unidentified influenza virus with other respiratory manifestations (ICD-10) Acute bronchospasm ?J98.01 - Acute bronchospasm (ICD-10) Postoperative pain, acute, shoulder ?G89.18 - Other acute postprocedural pain (ICD-10) ?M25.519 - Pain in unspecified shoulder (ICD-10) Fever ?R50.9 - Fever, unspecified (ICD-10) Acute pain of right shoulder ?M25.511 - Pain in right shoulder (ICD-10) Rotator cuff arthropathy of right shoulder ?M12.811 - Other specific arthropathies, not elsewhere classified, right shoulder (ICD-10) Diabetes ?E11.9 - Type 2 diabetes mellitus without complications (ICD-10) COPD (chronic obstructive pulmonary disease) ?J44.9 - Chronic obstructive pulmonary disease, unspecified (ICD-10) Surgical History S/P right rotator cuff repair ?Z98.890 - Other specified postprocedural states (ICD-10) Social History Within the past year, how often did you have a drink containing alcohol: never Score interpretation: A score less than 4 is consistent with normal alcohol consumption. 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 Little interest or pleasure in doing things: not at all Feeling down, depressed, or hopeless: not at all Feel stressed/tense/nervous/anxious/difficulty sleeping: not at all Do you think of yourself as: straight/heterosexual Gender Identity: male Meds Home Medications and Allergies Home Medications ?Medication ?Instructions ?Recorded ?Confirmed ?Type glipizide 5 mg-metformin 500 mg 1 tab PO DAILY 08/23/23 09/08/23 History tablet atorvastatin 20 mg tablet 20 mg PO DAILY 09/08/23 09/08/23 History lancets (Accu-Chek Fastclix Lancet 09/08/23 09/08/23 History Drum) levofloxacin 750 mg tablet 750 mg PO DAILY 7 days #7 tabs 09/10/23 Rx oseltamivir 75 mg capsule 75 mg PO BID 4 days #8 caps 09/10/23 Rx prednisone 10 mg tablets in a dose 10 mg PO DAILY #39 ea 09/10/23 Rx pack Allergies Allergy/AdvReac Type Severity Reaction Status Date / Time ibuprofen [From Motrin] AdvReac Mild Verified 09/08/23 19:17 IV dye Allergy Uncoded 09/08/23 19:17 Exam Constitutional Documenting provider has reviewed patient's vital signs: yes Common normals: no apparent distress, oriented x3, healthy appearing, alert and well nourished General appearance: cooperative HENMT Common normals: normocephalic, hearing grossly normal bilaterally and moist oral mucous membranes Head and scalp: normocephalic Eye Common normals: PERRL Pupil: PERRL Neck & C-Spine Common normals: full ROM General: normal visual inspection Chest Common normals: inspection of chest normal Respiratory Common normals: normal respiratory effort, no retractions and no use of accessory muscles Back & Pelvis Lumbar spine/lower back: ROM limited, pain with ROM, lumbar spinal tenderness and straight leg raise negative bilaterally Sacroiliac joints: SI joint(s) abnormal Other: bilateral positive hailee(patricks), gaenslens, thigh thrust, compression test right greater than left Extremity Common normals: normal to inspection and full ROM Right lower extremity: hip joint Left lower extremity: hip joint Other: significant increase in hip/groin pain with internal and external rotation of bilateral hips, right greater than left Neuro Common normals: oriented x3, CN's II-XII intact bilaterally, moves all extremities, no focal motor deficits, no sensory deficits noted and deep tendon reflexes 2+ bilaterally Sensorium/orientation: alert Motor exam: strength 5/5 throughout and no movement abnormalities noted Psych Common normals: mental status grossly normal, thought process normal, cooperative, affect normal, speech normal and activity/motor behavior normal Speech: normal speech Thought process: normal thought process Results Additional Findings Additional findings: If on a controlled substance or opioids, I have checked an [place] report on this patient and there are no aberrancies noted in the prescribing history.??If on a controlled substance or opioid a drug screen was completed and reviewed within the last year, and if there has not been a drug screen completed we ordered one today to monitor higher risk, state monitored pain medication use. As part of providing excellent, safe, comprehensive care, the following was completed at our patient's visit: 1. A medication reconciliation and review to ensure accurate knowledge of current/active medications, including asking our patients to inform us about any brar-ugi-mhoxcud medications or herbal remedies/nutritional supplements/alternative remedies. 2. A review to specifically ensure our patients have had annual screening for screening for depression, screening for tobacco use, and screening for unhealthy alcohol use. For concerning screenings had a discussion with the patient, provided patient education, and recommended follow-up with primary care provider when appropriate. If patient noted with a risk of falling, they received education on strength, gait, and balance training to prevent future risk of falling. Assessment and Plan Assessment and Plan (1) Failed back syndrome: (2) Lumbar stenosis with neurogenic claudication: (3) Bilateral hip pain: (4) Sacroiliitis: (5) Chronic prescription opiate use: Assessment and Plan: unfortunately has failed numerous conservative medications, at this time still not finding significant benefit from current medication. consider butrans in the future (6) Chronic pain syndrome: Plan lumbar xray with flexion and extension lumbar MRI without contrast to evaluate lumbar stenosis, post surgical changes, source of persistent severe chronic low back pain to evaluate for interventional therapies vs surgical referral update bilateral hip xray, likely moderate to severe OA based on physical exam continue HEP as tolerated f/u after completion of imaging
== END 2023-12-26 07:27 | disposition home or self-care (01) ==
LOC: PM 07:27
PROVIDERS: PCP Family Medicine; Visit Provider Nurse Practitioner
DX: M47.816 Spondylosis without myelopathy or radiculopathy, lumbar region (principal); M25.551 Pain in right hip; M25.552 Pain in left hip; M46.1 Sacroiliitis, not elsewhere classified; Z79.891 Long term (current) use of opiate analgesic; G89.4 Chronic pain syndrome
CPT/HCPCS: G0463

== ENCOUNTER 2024-01-01 07:18 | Outpatient (OUT) | payer MEDICARE, MEDICAID, SELFPAY ==
--- NOTE | 2024-01-01 | XR_ITS ---
[address] [address] Patient Name: ERIC CRAIG MRN: [id number] date: 1960 Sex: M Assigned Patient Location: MRI Current Patient Location: MRI Accession/Order Number: [id number] Exam Date: 01/01/2024 08:35 Report Date: 01/01/2024 08:56 At the request of: INNA SUMNER Procedure: XR hip ZEV EXAMINATION: XR hip ZEV HISTORY: Sacroiliitis, Failed Back Syndrome, Bilateral Hip Pain COMPARISON: No relevant comparison available. FINDINGS: RIGHT FINDINGS: BONES: No acute fracture or dislocation. Mild degenerative changes with marginal osteophyte relation of the acetabulum. SOFT TISSUES: Negative. No visible soft tissue swelling. OTHER: Negative. LEFT FINDINGS: BONES: No acute fracture or dislocation. Mild degenerative changes with marginal osteophyte relation of the acetabulum. SOFT TISSUES: Negative. No visible soft tissue swelling. OTHER: Negative. XR/XR hip ZEV IMPRESSION: RIGHT CONCLUSION: Mild osteoarthritis LEFT CONCLUSION: Mild osteoarthritis Electronically authenticated by: BARBIE MEMBRENO Date: 01/01/2024 08:56
--- NOTE | 2024-01-01 | XR_ITS ---
[facility] [place] [id number] Patient Name: ERIC CRAIG MRN: [id number] date: 1960 Sex: M Assigned Patient Location: MRI Current Patient Location: MRI Accession/Order Number: [id number] Exam Date: 01/01/2024 08:35 Report Date: 01/01/2024 08:57 At the request of: INNA SUMNER Procedure: XR lumbar spine 6V w bending EXAMINATION: XR lumbar spine 6V w bending HISTORY: Sacroiliitis, Failed Back Syndrome, Bilateral Hip Pain COMPARISON: No relevant comparison available. FINDINGS: BONES: Neutral projection is normal alignment with no acute fracture or spondylolisthesis. Minimal degenerative spondylosis. Moderate to severe facet osteoarthropathy most significant L4-L5 DISC SPACES: Multilevel disc space narrowing most significant L4-5 PARASPINOUS: Negative. No paraspinous abnormality is seen. OTHER: No transient spondylolisthesis with flexion or extension XR/XR lumbar spine 6V w bending IMPRESSION: Mild to moderate degenerative changes No dynamic instability Electronically authenticated by: BARBIE MEMBRENO Date: 01/01/2024 08:57
--- OUTSIDE RECORDS SUMMARY | 2024-01-01 07:20 | XMS_ITS | CCD ---
Author Organization [facility] Care Team Providers Care Cook Mayonnaise Name Role Phone Ronnie Kesha Unavailable Chepe [...] Consulting Unavailable HANNAH MAGALLANES Primary Care Physician [phone] Edin, Barbie Tellez Referring Unavailable Pocdoron, Barbie Tellez Attending Unavailable Pocdoron, Barbie Tellez Admitting Unavailable Hannah Magallanes MD Primary Care Provider POCBARBIE SAL Attending Unavailable POCDORON, HI Referring Unavailable BARBIE TAPIA Attending Unavailable BARBIE TAPIA Attending Unavailable Allergies Allergy Classification Reported Allergen(s) Allergy Type Date of Onset Reaction(s) Facility (20 sources) Ibuprofen Drug Allergy [facility] Other (20 sources) olodaterol / tiotropium Drug Allergy shortness of breath [facility] Other (20 sources) CT Scan dye Propensity to adverse reactions [facility] Other (4 sources) Ibuprofen Drug Allergy 08-19-18 80 [facility] Repository (2 sources) Iodine (And Iodine Containting Drugs) Drug allergy (disorder) 09-07-19 16 [facility] Repository (1 source) NSAIDs Drug allergy (disorder) [facility] Repository (20 sources) fentaNYL Drug Allergy 12-05-19 24 Unknown, [facility] (4 sources) Ibuprofen Drug Allergy 01-15-20 15 [facility] ([facility] sources) Ofloxacin Drug Allergy 12-05-19 24 Unknown, [facility] (3 sources) zafirlukast Drug Allergy 01-15-20 15 Unknown [facility] Other (20 sources) Zafirlukast *ANTIASTHMATIC AND BRONCHODILATOR AGEN Propensity to adverse reactions Unknown [facility] Other (20 sources) Ibuprofen & Diet Manage Prod *ANALGESICS - ANTI-IN Propensity to adverse reactions Unknown [facility] Other (3 sources) Allergies Reconciled Propensity to adverse reactions Unknown [facility] Other (20 sources) Iodinated contrast media (substance) Drug allergy 06-03-20 19 Rash [facility] Other (3 sources) patient allergy list reviewed by nurse or physicia Propensity to adverse reactions 10-05-19 16 Comment:Done [facility] Other (2 sources) olodaterol Drug Allergy 12-05-19 24 shortness of breath [place] (2 sources) tiotropium Drug Allergy 12-05-19 24 shortness of breath [place] (2 sources) Iodinated Contrast Media Allergy to substance 12-05-19 [facility] (2 sources) Ibuprofen & Diet Manage Prod * Allergy to substance 12-04-19 [facility] (2 sources) Zafirlukast *ANTIASTHMATIC AND Allergy to substance 12-04-19 [facility] Medications Current Medications Medication Drug Class(es) Dates [...] as needed Orally every 6 hrs Active [id number] 200 actuat albuterol 0.09 mg/actuat metered dose [...] Start: 07-19-2023 take 2 tablets by mo [facility] in the morning glipiZIDE-metFORMIN (Metaglip) 5-500 MG tablet Take 2 tablets by mouth in the morning and 2 tablets before bedtime. 0 07/19/2023 Active take 2 tablets by mo [facility] twice daily glipiZIDE-metFORMIN HCl 5-500 MG 2 [...] Active Start: 11-23-2022 take 2 tablets by [facility] every twenty-four hours predniSONE 20 [...] days May, Active Start: 2023 HYDROcodone-ac etaminophen ([place]) 10-325 MG tablet Start: 2023 take 1 [...] 30 mg oral tablet (5 sources) Uncompetitive W-ypaiei-Y-aspartate Receptor Antagonist, Sigma-1 Agonist Start: 05-26-2021 take 1 tablet by mouth every eight hours [place] DMT 30-30 MG 1 tablet Orally every [...] 10-05-2015 Episodic Other aftercare (1 source) Other [facility] (current) drug therapy; Translations: [OTH MANAGER GAME CURRENT DRUG THERAPY] Onset: 12-29-2021 Episodic Other [...] Basophils (Bld) [#/Vol] 0.1 10 3/uL 0.0-0.1 [place] Basophils/100 WBC Auto (Bld) on 12-05-2023 Basophils/100 WBC (Bld) 0.9 % 0.2-2.0 [place] Eosinophils/100 WBC Auto (Bl d)on 12-05-2023 Eosinophils/100 WBC (Bld) 2.7 % 0.9-7.0 [place] Erythrocyte distribution wid th Auto (RBC) [Ratio]on 12-05-2023 Erythrocyte distribution width (RBC) [Ratio] 13.1 % 11.0-15.0 [place] Estimated glomerular filtrat ion rate (GFR) non- Americanon 12-05-2023 GFR/1.73 sq M.predicted among non-blacks MDRD (S/P/Bld) [Vol rate/Area] mL/min/{1.73_m2} >=60 [place] Glucose mean value [Mass/vol ume] in Blood Estimated from glycated hemoglobinon 12-05-2023 Average glucose Estimated from glycated hemoglobin (Bld) [Mass/Vol] 171 mg/dL [place] Hematocrit Auto (Bld) [Volum e fraction]on 12-05-2023 Hematocrit (Bld) [Volume fraction] 48.9 % 42.0-54.0 [place] Hemoglobin [Mass/volume] in Bloodon 12-05-2023 Hemoglobin (Bld) [Mass/Vol] 16.0 g/dL 14.0-18.0 [place] Laboratory - Chemistry and C hemistry - challengeon 12-05-2023 Calcium [Mass/Vol] 9.7 mg/dL 8.5-10.1 [facility] Chloride [Moles/Vol] 102 mmol/L 98-107 [place] CO2 [Moles/Vol] 27.6 mmol/L 21.0-32.0 [facility] Creatinine [Mass/Vol] 1.01 mg/dL 0.70-1.30 [place] GFR/1.73 sq M.predicted MDRD (S/P/Bld) [Vol rate/Area] mL/min/{1.73_m2} >=60 [place] Glucose [Mass/Vol] 156 mg/dL 74-106 [facility] Potassium [Moles/Vol] 4.4 mmol/L 3.5-5.1 [place] Sodium [Moles/Vol] 139 mmol/L 136-145 [facility] Urea nitrogen [Mass/Vol] 13.0 mg/dL 7.0-18.0 [place] Urea nitrogen/Creatinine [Mass ratio] 12.9 mg/mg [place] [facility] - Hematology and Cell countson 12-05-2023 ESR (Bld) [Velocity] 17 mm/h <=20 [place] HbA1c (Bld) [Mass fraction] 7.6 % 4.5-6.2 [place] Comment on above: ADA RECOMMENDED LIMI T 4.0 - 6.0ADA THERAPEUTIC TARGET < 7.0ACTION SUGGESTED> 7.0 Immature granulocytes/100 WBC (Bld) 0.4 % 0.0-0.5 [place] Leukocytes [#/volume] correc jean claude for nucleated erythrocytes in Blood by Automated counon 12-05-2023 WBC corrected for nucl RBC Auto (Bld) [#/Vol] 7.7 10 3/uL 4.0-11.0 [place] Lymphocytes Auto (Bld) [#/Vo l]on 12-05-2023 Lymphocytes (Bld) [#/Vol] 2.4 10 3/uL 1.2-3.8 [place] Lymphocytes/100 WBC Auto (Bl d)on 12-05-2023 Lymphocytes/100 WBC (Bld) 31.2 % 20.5-60.0 [place] MCH Auto (RBC) [Entitic mass ]on 12-05-2023 MCH (RBC) [Entitic mass] 28.5 pg 25.9-34.0 [place] MCHC Auto (RBC) [Mass/Vol]on 12-05-2023 MCHC (RBC) [Mass/Vol] 32.7 g/dL 29.9-35.2 [place] MCV Auto (RBC) [Entitic vol] on 12-05-2023 MCV (RBC) [Entitic vol] 87.0 fL 80.0-94.0 [place] Monocytes Auto (Bld) [#/Vol] on 12-05-2023 Monocytes (Bld) [#/Vol] 0.7 10 3/uL 0.3-0.8 [place] Monocytes/100 WBC Auto (Bld) on 12-05-2023 Monocytes/100 WBC (Bld) 9.5 % 1.7-12.0 [place] Neutrophils Auto (Bld) [#/Vo l]on 12-05-2023 Neutrophils (Bld) [#/Vol] 4.2 10 3/uL 1.4-6.5 [place] Neutrophils/100 WBC Auto (Bl d)on 12-05-2023 Neutrophils/100 WBC (Bld) 55.3 % 43.0-75.0 [place] No Panel Informationon 12-04 Eosinophils # (Auto) 0.2 10 3/uL 0.0-0.7 [place] Immature Granulocyte # (Auto) 0.03 10 3/uL 0.00-0.03 [place] Platelet mean volume Auto (B ld) [Entitic vol]on 12-05-2023 Platelet mean volume (Bld) [Entitic vol] 8.6 fL 9.5-13.5 [place] Platelets Auto (Bld) [#/Vol] on 12-05-2023 Platelets (Bld) [#/Vol] 330 10 3/uL 150-450 [place] RBC Auto (Bld) [#/Vol]on RBC (Bld) [#/Vol] 5.62 10 6/uL 4.70-6.10 [facility] Serum or plasma anion gap de terminationon 12-05-2023 Anion gap [Moles/Vol] 13.8 mmol/L [place] Magnesiumon 07-02-2023 Magnesium [Mass/Vol] 2.8249097 mg/dL Normal 1.8-2.4 mg/dL [facility] Other Magnesium see note [facility] Other MRI Shoulder w/o Contrast [facility] 05-31-2023 MRI Shoulder w/o Contrast Right Exam [...] TAMARA Technologist: STELLA Technical Comments None Normal [facility] Consent for Treatmenton 05-19 Consent for Treatment [id number] .00TIFF Normal [facility] RAD - MRI Screening Formon 1 RAD - MRI Screening Form [id number]#1. 00TIFF Normal [facility] Physician Orderon 05-09-2023 Physician Order [id number]# 1.00CD:127 Normal [facility] XR CHEST 2 Von 11-24-2022 XR [...] RUBI TAVERAS Date: 2022-11-24 17:17 Normal [facility] CT LUNG CANCER SCREENINGon 1 09-20-2021 [...] YEISON NAVAS Date: 2022-07-20 07:18 Normal [facility] CBC AUTO DIFFon 06-07-2022 BASO # 0.1 103/ul Normal 0.0-0.1 Comment on above: Performed By: #### C BC #### [facility] [address] [place] [address] Dr. Eran Chacon Basophils/100 WBC (Bld) 0.6 % Normal 0.2-2.0 Comment on above: Performed By: #### C BC #### [facility] [address] [address] [address] Eran Chacon EO # 0.3 103/ul Normal 0.0-0.7 Comment on above: Performed By: #### C BC #### [facility] [address] [place] [address] Dr. Eran Chacon Eosinophils/100 WBC (Bld) 3.3 % Normal 0.9-7.0 Comment on above: Performed By: #### C BC #### [facility] [address] [place] [address] Dr. Eran Chacon Erythrocyte distribution width (RBC) [Ratio] 12.9 % Normal 11.0-15.0 Comment on above: Performed By: #### C BC #### [facility] [address] [place] [address] Dr. Eran Chacon Hematocrit (Bld) [Volume fraction] 47.7 % Normal 42.0-54.0 Comment on above: Performed By: #### C BC #### [facility] [address] [place] [address] Dr. Eran Chacon Hemoglobin (Bld) [Mass/Vol] 15.9 g/dL Normal 14.0-18.0 Comment on above: Performed By: #### C BC #### [facility] [address] [place] [address] Dr. Eran Chacon IG # 0.02 10e3/ul Normal 0.00-0.03 Comment on above: Performed By: #### C BC #### [facility] [address] [place] [address] Dr. Eran Chacon IG % 0.2 % Normal 0.0-0.5 Comment on above: Performed By: #### C BC #### [facility] [address] [place] [address] Dr. Eran Chacon LYMPH # 3.4 103/ul Normal 1.2-3.8 Comment on above: Performed By: #### C BC #### [facility] [address] [place] [address] Dr. Eran Chacon Lymphocytes/100 WBC (Bld) 34.5 % Normal 20.5-60.0 Comment on above: Performed By: #### C BC #### [facility] [address] [place] [address] Dr. Eran Chacon MANUAL DIFF REQ NO Normal [facility] Comment on above: Performed By: #### C BC #### [facility] [address] [address] [address] Eran Chacon MCH (RBC) [Entitic mass] 29.6 pg Normal 25.9-34.0 Comment on above: Performed By: #### C BC #### [facility] [address] [address] [address] Eran Chacon MCHC (RBC) [Mass/Vol] 33.3 g/dL Normal 29.9-35.2 Comment on above: Performed By: #### C BC #### [facility] [address] [address] [address] Eran Chacon MCV (RBC) [Entitic vol] 88.8 fL Normal 80.0-94.0 Comment on above: Performed By: #### C BC #### [facility] [address] [place] [address] Dr. Eran Chacon MONO # 0.9 103/ul Critically high 0.3-0.8 [facility] Comment on above: Performed By: #### C BC #### [facility] [address] [address] [address] Eran Chacon Monocytes/100 WBC (Bld) 9.3 % Normal 1.7-12.0 Comment on above: Performed By: #### C BC #### [facility] [address] [place] [address] Dr. Eran Chacon NEUT # 5.2 103/ul Normal 1.4-6.5 [facility] Comment on above: Performed By: #### C BC #### [facility] [address] [place] [address] Dr. Eran Chacon Neutrophils/100 WBC (Bld) 52.1 % Normal 43.0-75.0 [facility] Comment on above: Performed By: #### C BC #### [facility] [address] [place] [address] Dr. Eran Chacon Platelet mean volume (Bld) [Entitic vol] 8.8 fL Critically low 9.5-13.5 [facility] Comment on above: Performed By: #### C BC #### [facility] [address] [place] [address] Dr. Eran Chacon PLT 287 103/ul Normal 150-450 Comment on above: Performed By: #### C BC #### [facility] [address] [place] [address] Dr. Eran Chacon RBC 5.37 106/ul Normal 4.70-6.10 [facility] Comment on above: Performed By: #### C BC #### [facility] [address] [place] [address] Dr. Eran Chacon WBC 9.9 103/ul Normal 4.0-11.0 Comment on above: Performed By: #### C BC #### [facility] [address] [place] [address] Dr. Eran Chacon ER URINE PROFILEon 2 Bilirubin Ql (U) Negative Normal NEGATIVE [facility] Comment on above: Performed By: #### BISHNU BATESRO #### [facility] [address] [place] [address] Dr. Eran Chacon Clarity (U) CLEAR Normal CLEAR Comment on above: Performed By: #### BISHNU BATESRO #### [facility] [address] [place] [address] Dr. Eran Chacon Color (U) YELLOW Normal YELLOW [facility] Comment on above: Performed By: #### BISHNU BATESRO #### [facility] [address] [place] [address] Dr. Eran GATES A micrscopic examination will be performed if indicated. Normal [facility] Comment on above: Performed By: #### BISHNU BATESRO #### [facility] [address] [place] [address] Dr. Eran Chacon Glucose Ql (U) 500 mg/dl Abnormal NEGATIVE [facility] Comment on above: Performed By: #### BISHNU BATESRO #### [facility] [address] [place] [address] Dr. Eran Chacon Hemoglobin Ql (U) TRACE-INTACT Abnormal NEGATIVE [facility] Comment on above: Performed By: #### Med SHER UMICRO #### [facility] [address] [place] [address] Dr. Eran Chacon Ketones Ql (U) Negative Normal NEGATIVE [facility] Comment on above: Performed By: #### Med SHER UMICRO #### [facility] [address] [place] [address] Dr. Eran Chacon LEUKOCYTES Negative Normal NEGATIVE Comment on above: Performed By: #### Med SHER UMICRO #### [facility] [address] [place] [address] Dr. Eran Chacon Nitrite Ql (U) Negative Normal NEGATIVE [facility] Comment on above: Performed By: #### Med SHER UMICRO #### [facility] [address] [place] [address] Dr. Eran Chacon pH (U) 6.0 [pH] Normal 5-9 Comment on above: Performed By: #### Med SHER UMICRO #### [facility] [address] [place] [address] Dr. Eran Chacon SPEC GRAVITY 1.025 Normal 1.005-<=1.025 [facility] Comment on above: Performed By: #### Med SHER UMICRO #### [facility] [address] [place] [address] Dr. Eran Chacon UA PROTEIN Negative Normal NEGATIVE/ TRACE [facility] Comment on above: Performed By: #### Med SHER UMICRO #### [facility] [address] [place] [address] Dr. Eran Chacon UR MICRO IND INDICATED Normal Comment on above: Performed By: #### Med SHER UMICRO #### [facility] [address] [place] [address] Dr. Eran Chacon Urobilinogen Qn (U) 0.2 {Aureliano'U}/dL Normal 0.2 - 1. 0 Comment on above: Performed By: #### E HANNA SHER #### [facility] [address] [place] [address] Dr. Eran Chacon PROF 14(COMP METB)on 06-07- 022 Albumin [Mass/Vol] 4.0 g/dL Normal 3.4-5.0 [facility] Comment on above: Performed By: #### C MP #### [facility] [address] [place] [address] Dr. Eran Chacon Albumin/Globulin [Mass ratio] 1.2 {ratio} Normal Comment on above: Performed By: #### C MP #### [facility] [address] [place] [address] Dr. Eran Chacon ALP [Catalytic activity/Vol] 104 U/L Normal 46-116 Comment on above: Performed By: #### C MP #### [facility] [address] [place] [address] Dr. Eran Chacon ALT [Catalytic activity/Vol] 28 U/L Normal 16-63 Comment on above: Performed By: #### C MP #### [facility] [address] [place] [address] Dr. Eran Chacon Anion gap [Moles/Vol] 7.2 mmol/L Normal Comment on above: Performed By: #### C MP #### [facility] [address] [place] [address] Dr. Eran Chacon AST [Catalytic activity/Vol] 14 U/L Critically low 15-37 [facility] Comment on above: Performed By: #### C MP #### [facility] [address] [place] [address] Dr. Eran Chacon Bilirubin [Mass/Vol] 0.4 mg/dL Normal 0.2-1.0 Comment on above: Performed By: #### C MP #### [facility] [address] [place] [address] Dr. Eran Chacon Calcium [Mass/Vol] 9.0 mg/dL Normal 8.5-10.1 [facility] Comment on above: Performed By: #### C MP #### [facility] [address] [address] [address] Eran Chacon Chloride [Moles/Vol] 103 mmol/L Normal 98-107 Comment on above: Performed By: #### C MP #### [facility] [address] [address] [address] Eran Chacon CO2 [Moles/Vol] 30.0 mmol/L Normal 21.0-32.[address] [facility] Comment on above: Performed By: #### C MP #### [facility] [address] [address] [address] Eran Chacon Creatinine [Mass/Vol] 0.85 mg/dL Normal 0.70-1.30 Comment on above: Performed By: #### C MP #### [facility] [address] [place] [address] Dr. Eran Chacon EGFR-AF FIJIAN >60 Normal >=[address] [facility] Comment on above: Performed By: #### C MP #### [facility] [address] [place] [address] Dr. Eran Chacon EGFR-NON AF FIJIAN >60 Normal >=60 Comment on above: Performed By: #### C MP #### [facility] [address] [address] [address] Eran Chacon Globulin (S) [Mass/Vol] 3.3 g/dL Normal Comment on above: Performed By: #### C MP #### [facility] [address] [address] [address] Eran Chacon Glucose [Mass/Vol] 165 mg/dL Critically high 74-106 T [facility] Comment on above: Performed By: #### C MP #### [facility] [address] [address] [address] Eran Chacon Potassium [Moles/Vol] 4.2 mmol/L Normal 3.5-5.1 Comment on above: Performed By: #### C MP #### [facility] [address] [place] [address] Dr. Eran Chacon Protein [Mass/Vol] 7.3 g/dL Normal 6.4-8.2 [facility] Comment on above: Performed By: #### C MP #### [facility] [address] [place] [address] Dr. Eran Chacon Sodium [Moles/Vol] 136 mmol/L Normal 136-145 [facility] Comment on above: Performed By: #### C MP #### [facility] [address] [place] [address] Dr. Eran Chacon Urea nitrogen [Mass/Vol] 10.0 mg/dL Normal 7.0-18.0 [facility] Comment on above: Performed By: #### C MP #### [facility] [address] [place] [address] Dr. Eran Chacon Urea nitrogen/Creatinine [Mass ratio] 11.8 mg/mg Normal Comment on above: Performed By: #### C MP #### [facility] [address] [place] [address] Dr. Eran Chacon URINE MICROSCOPIC ONLYon BACTERIA NONE SEEN Normal NONE SEEN Comment on above: Performed By: #### BISHNU BATESRO #### [facility] [address] [place] [address] Dr. Eran Chacon Bacteria identified Cx Nom (U) NOT INDICATED Normal [facility] Comment on above: Performed By: #### Med SHER UMICRO #### [facility] [address] [place] [address] Dr. Eran Chacon CAST NONE SEEN Normal NONE SEEN [facility] Comment on above: Performed By: #### Med SHER UMICRO #### [facility] [address] [place] [address] Dr. Eran Chacon Crystals LM Nom (Urine sed) NONE SEEN Normal NONE SEEN Comment on above: Performed By: #### Med SHER UMICRO #### [facility] [address] [place] [address] Dr. Eran Chacon Epithelial cells LM Ql (Urine sed) RARE Normal NONE SEEN /RARE [facility] Comment on above: Performed By: #### E RUR, UMICRO #### [facility] [address] [address] [address] Eran Chacon MUCOUS NONE SEEN Normal NONE SEEN [facility] Comment on above: Performed By: #### E RUR, UMICRO #### [facility] [address] [address] [address] Eran Chacon RBC 0-2 Normal 0-2 [facility] Comment on above: Performed By: #### E RUR, UMICRO #### [facility] [address] [address] [address] Eran Chacon WBC 2-5 Abnormal NONE SEEN [facility] Comment on above: Performed By: #### E RUR, UMICRO #### [facility] [address] [address] [address] Eran Chacon MRI SHOULDER LT WO [...] by: YEISON NAVAS Date: 2022-02-02 17:09 Normal XR shoulder LT min 2V*on XR shoulder LT min 2V* [facility] [place] [address] [place] [address] XRay Report Signed Patient: Nicholas Ziegler MR#: [id number] : [id number] Acct:[id number] Age/Sex: 61 / M ADM Date: 01/25/22 [place] [facility] Type: [facility] Attending Dr: Kesha Trujillo MD Ordering Provider: [...] Otilia Nunez M.D.01/25/2022 11:41 AM Dictation Location: [place] [address] Transcribed By: [facility] 01/25/22 1141 Dictated By: Otilia Nunez MD 01/25/22 1139 Signed By: 01/25/22 1141 Normal [place] Vital Signs Date Time Vital Sign Value Performing Clinician Facility 12-17-2023 08:54-0400 Body height 175.26 cm [facility] 12-17-2023 08:54-0400 Body mass index (BMI) [Ratio] 35.2 kg/m2 [place] 12-17-2023 08:54-0400 Body weight 108.4 kg [facility] 12-17-2023 08:54-0400 Diastolic blood pressure 76 mm[Hg] [place] 12-17-2023 08:54-0400 Heart rate 76 /min [facility] 12-17-2023 08:54-0400 Systolic blood pressure 154 mm[Hg] [place] 12-05-2023 08:52-0400 Body height 175.26 cm [facility] 12-05-2023 08:52-0400 Body mass index (BMI) [Ratio] 35 kg/m2 [place] 12-05-2023 08:52-0400 Body weight 107.67 kg [facility] 12-05-2023 08:52-0400 Diastolic blood pressure 78 mm[Hg] [place] 12-05-2023 08:52-0400 Heart rate 69 /min [facility] 12-05-2023 08:52-0400 Systolic blood pressure 147 mm[Hg] [place] 09-13-2023 13:30-0500 Body height 175.26 cm Hannah Magallanes Other [place] 09-13-2023 13:30-0500 Body mass index (BMI) [Ratio] 33.22 kg/m2 Hannah Magallanes Other [facility] Other 09-13-2023 13:30-0500 Body temperature 98.4 [degF] Hannah Magallanes Other [facility] Other 09-13-2023 13:30-0500 Body weight 102.06 kg Hannah Magallanes Other [facility] Other 09-13-2023 13:30-0500 Body weight 102.05 kg [facility] 09-13-2023 13:30-0500 Diastolic blood pressure 80 mm[Hg] Hannah Magallanes Other [place] 09-13-2023 13:30-0500 SaO2% (BldA) [Mass fraction] 93 % Hannah Magallanes Other [facility] Other 09-13-2023 13:30-0500 Systolic blood pressure 118 mm[Hg] Hannah Magallanes Other [place] 08-13-2023 10:30-0500 Body height 175.26 cm Hannah Magallanes Other [facility] Other 08-13-2023 10:30-0500 Body mass index (BMI) [Ratio] 33.9 kg/m2 Hannah Magallanes Other [facility] Other 08-13-2023 10:30-0500 Body weight 104.15 kg Hannah Magallanes Other [facility] Other 08-13-2023 10:30-0500 Diastolic blood pressure 78 mm[Hg] Hannah Magallanes Other [facility] Other 08-13-2023 10:30-0500 Systolic blood pressure 124 mm[Hg] Hannah Magallanes Other [facility] Other 06-25-2023 08:45-0500 Body height 175.26 cm Hannah Magallanes Other [facility] Other 06-25-2023 08:45-0500 Body mass index (BMI) [Ratio] 33.37 kg/m2 Hannah Magallanes Other [facility] Other 06-25-2023 08:45-0500 Body temperature 96.5 [degF] Hannah Magallanes Other [facility] Other 06-25-2023 08:45-0500 Body weight 102.51 kg Hannah Magallanes Other [facility] Other 06-25-2023 08:45-0500 Diastolic blood pressure 85 mm[Hg] Hannah Magallanes Other [facility] Other 06-25-2023 08:45-0500 Systolic blood pressure 149 mm[Hg] Hannah Magallanes Other [facility] Other 05-28-2023 10:45-0400 Body height 175.26 cm Hannah Magallanes Other [facility] Other 05-28-2023 10:45-0400 Body mass index (BMI) [Ratio] 33.52 kg/m2 Hannah Magallanes Other [facility] Other 05-28-2023 10:45-0400 Body weight 102.97 kg Hannah Magallanes Other [facility] Other 05-28-2023 10:45-0400 Diastolic blood pressure 82 mm[Hg] Hannah Magallanes Other [facility] Other 05-28-2023 10:45-0400 Systolic blood pressure 147 mm[Hg] Hannah Magallanes Other [facility] Other 2023 08:45-0400 Body height 175.26 cm Hannah Magallanes Other [facility] Other 2023 08:45-0400 Body mass index (BMI) [Ratio] 33.52 kg/m2 Hannah Magallanes Other [facility] Other 2023 08:45-0400 Body weight 102.97 kg Hannah Magallanes Other [facility] Other 2023 08:45-0400 Diastolic blood pressure 85 mm[Hg] Hannah Magallanes Other [facility] Other 2023 08:45-0400 Systolic blood pressure 156 mm[Hg] Hannah Magallanes Other [facility] Other 04-30-2023 09:45-0400 Body height 175.26 cm Hannah Magallanes Other [facility] Other 04-30-2023 09:45-0400 Body mass index (BMI) [Ratio] 34.32 kg/m2 Hannah Magallanes Other [facility] Other 04-30-2023 09:45-0400 Body temperature 96.2 [degF] Hannah Magallanes Other [facility] Other 04-30-2023 09:45-0400 Body weight 105.42 kg Hannah Magallanes Other [facility] Other 04-30-2023 09:45-0400 Diastolic blood pressure 78 mm[Hg] Hannah Magallanes Other [facility] Other 04-30-2023 09:45-0400 Respiratory rate 16 /min Hannah Magallanes Other [facility] Other 04-30-2023 09:45-0400 Systolic blood pressure 146 mm[Hg] Hannah Magallanes Other [facility] Other 02-20-2023 09:15-0400 Body height 175.26 cm Hannah Magallanes Other [facility] Other 02-20-2023 09:15-0400 Body mass index (BMI) [Ratio] 33.46 kg/m2 Hannah Magallanes Other [facility] Other 02-20-2023 09:15-0400 Body weight 102.79 kg Hannah Magallanes Other [facility] Other 02-20-2023 09:15-0400 Diastolic blood pressure 77 mm[Hg] Hannah Magallanes Other [facility] Other 02-20-2023 09:15-0400 Systolic blood pressure 131 mm[Hg] Hannah Magallanes Other [facility] Other 01-17-2023 08:45-0400 Body height 175.26 cm Hannah Magallanes Other [facility] Other 01-17-2023 08:45-0400 Body mass index (BMI) [Ratio] 33.37 kg/m2 Hannah Magallanes Other [facility] Other 01-17-2023 08:45-0400 Body weight 102.51 kg Hannah Magallanes Other [facility] Other 01-17-2023 08:45-0400 Diastolic blood pressure 79 mm[Hg] Hannah Magallanes Other [facility] Other 01-17-2023 08:45-0400 Systolic blood pressure 128 mm[Hg] Hannah Magallanes Other [facility] Other 11-23-2022 09:30-0400 Body height 175.26 cm Hannah Magallanes Other [facility] Other 11-23-2022 09:30-0400 Body mass index (BMI) [Ratio] 33.96 kg/m2 Hannah Magallanes Other [facility] Other 11-23-2022 09:30-0400 Body weight 104.33 kg Hannah Magallanes Other [facility] Other 11-23-2022 09:30-0400 Diastolic blood pressure 72 mm[Hg] Hannah Magallanes Other [facility] Other 11-23-2022 09:30-0400 Systolic blood pressure 122 mm[Hg] Hannah Magallanes Other [facility] Other 09-04-2022 11:30-0500 Body height 175.26 cm Hannah Magallanes Other [facility] Other 09-04-2022 11:30-0500 Body mass index (BMI) [Ratio] 33.52 kg/m2 Hannah Magallanes Other [facility] Other 09-04-2022 11:30-0500 Body weight 102.97 kg Hannah Magallanes Other [facility] Other 09-04-2022 11:30-0500 Diastolic blood pressure 80 mm[Hg] Hannah Magallanes Other [facility] Other 09-04-2022 11:30-0500 SaO2% (BldA) [Mass fraction] 95 % Hannah Magallanes Other [facility] Other 09-04-2022 11:30-0500 Systolic blood pressure 122 mm[Hg] Hannah Magallanes Other [facility] Other 02-06-2022 12:45-0400 Body height 175.26 cm Kesha Olexa Other [facility] Other 02-06-2022 12:45-0400 Body mass index (BMI) [Ratio] 31.01 kg/m2 Kesha Olexa Other [facility] Other 02-06-2022 12:45-0400 Body weight 95.26 kg Kesha Olexa Other [facility] Other 05-26-2021 13:15-0400 Body height 175.26 cm Harriet Ginty Other [facility] Other 05-26-2021 13:15-0400 Body mass index (BMI) [Ratio] 31.01 kg/m2 Harriet Ginty Other [facility] Other 05-26-2021 13:15-0400 Body temperature 98.3 [degF] Harriet Ginty Other [facility] Other 05-26-2021 13:15-0400 Body weight 95.26 kg Harriet Ginty Other [facility] Other 05-26-2021 13:15-0400 SaO2% (BldA) [Mass fraction] 96 % Harriet Ginty Other [facility] Other Encounters Encounter Date Encounter Type Care Provider Facility Start: 12-17-2023 End: 12-17-2023 ambulatory [facility] Work Phone: Start: 12-17-2023 End: 12-17-2023 Patient encounter procedure [facility] Work Phone: Start: 12-05-2023 End: 12-05-2023 ambulatory [facility] Work Phone: Start: 12-05-2023 End: 12-05-2023 Patient encounter procedure [facility] Work Phone: Start: 10-23-2023 Non-patient / Non-visit [facility] Work Phone: Start: 10-08-2023 Non-patient / Non-visit [facility] Work Phone: Start: 10-07-2023 End: 10-07-2023 ambulatory BARBIE Tellez POCOS Not Available Start: 09-18-2023 End: 09-18-2023 ambulatory Hannah Magallanes Other [facility] Other Start: 09-18-2023 Telephone encounter Hannah Sona [facility] Start: 09-13-2023 End: 09-13-2023 ambulatory Hannah Sona Other [facility] Other Start: 09-13-2023 Office outpatient vi sit 15 minutes Hannah Magallanes [facility] Start: 09-13-2023 End: 09-13-2023 Patient encounter procedure [facility] Start: 09-11-2023 Telephone encounter Argentina coleman [...] 09-10-2023 End: 09-10-2023 ambulatory Hannah Magallanes Other [facility] Other Start: 09-10-2023 Telephone encounter Hannah Magallanes [facility] Start: 09-06-2023 End: 09-06-2023 ambulatory Hannah Magallanes Other [facility] Other Start: 09-06-2023 Telephone encounter Hannah Magallanes [facility] Start: 09-02-2023 End: 09-02-2023 ambulatory HI POCOS Not Available Start: 08-20-2023 End: 08-20-2023 ambulatory Hannah Magallanes Other [facility] Other Start: 08-20-2023 Telephone encounter Hannah Magallanes [facility] Start: 08-13-2023 End: 08-13-2023 ambulatory Hannah Magallanes Other [facility] Other Start: 08-13-2023 Office outpatient vi sit 25 minutes Hannah Magallanes [facility] Start: 08-13-2023 Telephone encounter Hannah Magallanes [facility] Start: 08-06-2023 End: 08-06-2023 ambulatory Hannah Magallanes Other [facility] Other Start: 08-06-2023 Telephone encounter Hannah Magallanes [facility] Start: 07-29-2023 End: 07-29-2023 ambulatory HI POCOS Not Available Start: 07-22-2023 End: 07-22-2023 ambulatory Hannah Magallanes Other [facility] Other Start: 07-22-2023 Telephone encounter Hannah Magallanes [facility] Start: 07-19-2023 End: 07-19-2023 ambulatory Hannah Magallanes Other [facility] Other Start: 07-19-2023 Telephone encounter Hannah Magallanes [facility] Start: 07-18-2023 End: 07-18-2023 ambulatory Hannah Magallanes Other [facility] Other Start: 07-18-2023 Telephone encounter Hannah Magallanes [facility] Start: 07-02-2023 End: 07-02-2023 ambulatory Hannah Magallanes Other [facility] Other Start: 07-02-2023 Office outpatient vi sit 15 minutes Hannah Magallanes [facility] Start: 07-02-2023 Telephone encounter Hannah Magallanes [facility] Start: 06-25-2023 End: 06-25-2023 ambulatory Hannah Magallanes Other [facility] Other Start: 06-25-2023 Office outpatient vi sit 15 minutes Hannah Magallanes [facility] Start: 06-21-2023 End: 06-21-2023 ambulatory Hannah Magallanes Other [facility] Other Start: 06-21-2023 Encounter by compute r link Hannah Magallanes [facility] Start: 06-20-2023 End: 06-20-2023 ambulatory Hannah Magallanes Other [facility] Other Start: 06-20-2023 Telephone encounter Hannah Magallanes [facility] Start: 06-17-2023 End: 06-17-2023 ambulatory Hannah Magallanes Other [facility] Other Start: 06-17-2023 Telephone encounter Hannah Magallanes [facility] Start: 06-10-2023 End: 06-10-2023 ambulatory Hannah Magallanes Other [facility] Other Start: 06-10-2023 Telephone encounter Hannah Magallanes [facility] Start: 06-03-2023 End: 06-03-2023 ambulatory Hannah Sona Other [facility] Other Start: 06-03-2023 Telephone encounter Hannah Sona [facility] Start: 05-30-2023 End: 05-31-2023 ambulatory Hi Pocos [facility] Start: 05-30-2023 End: 05-30-2023 Patient encounter procedure Barbie Tellez Pocos [facility] Start: 05-28-2023 End: 05-28-2023 ambulatory Hannah Magallanes Other [facility] Other Start: 05-28-2023 Office outpatient vi sit 15 minutes Hannah Magallanes [facility] Start: 2023 End: 2023 ambulatory Hannah Sona Other [facility] Other Start: 2023 Office outpatient vi sit 15 minutes Hannah Sona [facility] Start: 05-16-2023 End: 05-16-2023 ambulatory Hannah Sona Other [facility] Other Start: 05-16-2023 Telephone encounter Hannah Sona [facility] Start: 04-30-2023 End: 04-30-2023 ambulatory Hannah Sona Other [facility] Other Start: 04-30-2023 Office outpatient vi sit 15 minutes Hannah Sona [facility] Start: 04-26-2023 End: 04-26-2023 ambulatory Hannah Sona Other [facility] Other Start: 04-26-2023 Telephone encounter Hannah Sona [facility] Start: 04-23-2023 End: 04-23-2023 ambulatory Hannah Sona Other [facility] Other Start: 04-23-2023 Telephone encounter Hannah Sona [facility] Start: 03-25-2023 End: 03-25-2023 ambulatory Hannah Sona Other [facility] Other Start: 03-25-2023 Telephone encounter Hannah Sona [facility] Start: 03-06-2023 End: 03-06-2023 ambulatory Hannah Magallanes Other [facility] Other Start: 03-06-2023 Telephone encounter Hannah Sona [facility] Start: 02-20-2023 End: 02-20-2023 ambulatory Hannah Magallanes Other [facility] Other Start: 02-20-2023 Office outpatient vi sit 25 minutes Hannah Sona [facility] Start: 02-05-2023 End: 02-05-2023 ambulatory Hannah Sona Other [facility] Other Start: 02-05-2023 Telephone encounter Hannah Sona [facility] Start: 01-21-2023 End: 01-21-2023 ambulatory Hannah Magallanes Other [facility] Other Start: 01-21-2023 Telephone encounter Hannah Sona [facility] [employer] Start: 01-17-2023 End: 01-17-2023 ambulatory Hannah Magallanes Other [facility] Other Start: 01-17-2023 Office outpatient vi sit 15 minutes Hannah Sona [facility] Start: 12-24-2022 End: 12-24-2022 ambulatory Hannah Magallanes Other [facility] Other Start: 12-24-2022 Telephone encounter Hannah Sona [facility] Start: 12-03-2022 End: 12-03-2022 ambulatory Hannah Sona Other [facility] Other Start: 12-03-2022 Telephone encounter Hannah Sona [facility] Start: 11-27-2022 End: 11-27-2022 ambulatory Hannah Magallanes Other [facility] Other Start: 11-27-2022 Telephone encounter Hannah Magallanes [facility] Start: 11-26-2022 End: 11-26-2022 ambulatory Hannah Magallanes Other [facility] Other Start: 11-26-2022 Telephone encounter Hannah Magallanes [facility] Start: 11-24-2022 End: 11-25-[address] HANNAH MAGALLANES Facility:[facility] Start: 11-23-2022 End: 11-23-2022 ambulatory Hannah Magallanes Other [facility] Other Start: 11-23-2022 Office outpatient vi sit 15 minutes Hannah Magallanes [facility] Start: 11-05-2022 End: 11-05-2022 ambulatory Hannah Magallanes Other [facility] Other Start: 11-05-2022 Telephone encounter Hannah Magallanes [facility] Start: 10-03-2022 End: 10-03-2022 ambulatory Hannah Magallanes Other [facility] Other Start: 10-03-2022 Telephone encounter Hannah Magallanes [facility] Start: 09-04-2022 End: 09-04-2022 ambulatory Hannah Magallanes Other [facility] Other Start: 09-04-2022 Office outpatient vi sit 25 minutes Hannah Magallanes [facility] Start: 07-26-[address] HANNAH MAGALLANES Facil ity:[facility] Start: 07-19-2022 End: 07-20-[address] WILFREDO ENGLE Facility:[facility] Start: 06-07-2022 End: 06-07-[address] HANNAH MAGALLANES Facility:[facility] Start: 03-15-2022 ambulatory KESHA TRUJILLO Facility:[facility] Start: 02-06-2022 End: 02-06-2022 ambulatory Kesha Trujillo Other [facility] Other Start: 02-06-2022 Office outpatient vi sit 25 minutes Kesha Trujillo [facility] Start: 02-02-2022 End: 02-03-2022 ambulatory KESHA TRUJILLO Facility:[facility] Start: 12-28-2021 End: 12-28-[address] HANNAH MAGALLANES Facility:[facility] Start: 12-12-2021 End: 12-13-2021 ambulatory KESHA TRUJILLO [facility] Other Start: 12-12-2021 Office outpatient ne w 30 minutes Kesha Trujillo [facility] [place] Start: 05-26-2021 Office outpatient vi sit 15 [...] [facility] [address] [address] Barbie Tapia DO [address] [place] [address] [facility] XR Pelvis and Hip - bilateral Views [facility] Immunizations Immunization Date Immunization Notes Care Provider Fa cility 06-02-2018 Influenza, injectabl e, Madin Kyleigh Canine Kidney, preservative free, quadrivalent Argentina Clinton PT Work Phone: [facility] 05-17-2017 influenza virus vaccine, split virus (incl. purified surface antigen) Hannah Magallanes Other [facility] Other 05-17-2017 influenza virus vaccine, unspecified formulation [place] 05-16-2017 influenza, injectabl e, quadrivalent, preservative free Argentina Clinton PT Work Phone: [facility] 06-28-2016 influenza, injectabl e, quadrivalent, preservative free Argentinacurtis Clinton PT Work Phone: [facility] 06-28-2016 tetanus and diphther ia toxoids, adsorbed, preservative free, for adult use (5 Lf of tetanus toxoid and 2 Lf of diphtheria toxoid) Hannah Magallanes Other [place] 05-25-2015 influenza, seasonal, injectable, preservative free Argentina Clinton PT Work Phone: [facility] 05-25-2015 tetanus and diphther ia toxoids, adsorbed, preservative free, for adult use (5 Lf of tetanus toxoid and 2 Lf of diphtheria toxoid) Hannah Magallanes Other [place] 06-15-1999 pneumococcal conjuga te vaccine, 7 valent Argentina Clinton PT Work Phone: [facility] Payers Date Payer Category Payer Medicaid MEDICAID [facility] [id number] 2021-Present [phone] [address] [place] [address] Medicaid [id number] 2013 Medicare MEDICARE MEDICAR E PART B [id number] 2013-Present [address] [address] [place] [address] Medicare [id number] 1960 Unknown [id number] 1960 Unknown [id number] 1960 Unknown [id number] 1960 Unknown [id number] [id number] 1960 Unknown [id number] [id number] 1960 Unknown [id number] [id number] 1960 Unknown [id number] [id number] 1960 Unknown [id number] [id number] 1960 Unknown [id number] [id number] 1960 Unknown [id number] [id number] 1960 Unknown [id number] [id number] 1960 Unknown [id number] [id number] 1960 Unknown [id number] 1959 Medicaid [id number] 1959 Medicare [id number] Self-pay Self Pay [id number] Social History Date Type Detail Facility Start: 09-02-2023 Sex Assigned At [facility] Tobacco smoking status No Smokin g Status Entered [facility] Start: 03-27-2023 Tobacco smoking status WIIS Smokes tobacco daily [facility] Work Phone: History of tobacco use [facility]igarette [facility] Start: 03-27-2023 End: 09-02-2023 Cigarettes smoked current (pack per day) - Reported 0.5 [facility] Start: 03-27-2023 Tobacco use and exposure Smokeless tobacco non-user [facility] Start: 09-02-2023 Alcohol intake Lifetime non-drinker (finding) [facility] Start: 03-27-2023 Alcohol Comment Caffine- Soda [facility] Start: 1960 Sex Assigned At Male [facility] Start: 08-21-2023 Gender identity Identifies as male gender (finding) [facility] Start: 08-21-2023 Sexual orientation Heterosexual (finding) [facility] Start: 02-06-2017 Tobacco smoking status NHIS Ex-smoker (finding) [facility] Procedure Code Equipment Code Equipment Original Text Equi pment Identifier Dates Accu-Chek FastClix Lancet - Clinical Notes 05-26-2021 to 10-02-2023 Telephone Encounter - Maris Tavera - 10/02/2023 1:35 PM [facility] 1[facility]35 PM EST Note Date & Type Note Facility 10-02-2023 Telephone encounter Note Form atting of this note might be different from the original. No attempts to hear back; closing referral. [facility] 10-02-2023 Miscellaneous Notes Formattin g of this note might be different from the original. No attempts to hear back; closing referral. documented in this encounter [facility] 09-13-2023 Evaluation note Encounter Date Diagnosis Assessment Notes Aug, Chronic obstructive pulmonary disease, unspecified (ICD-10 - J44.9) Finish antibiotics and prednisone as prescribed. Denies pulmonary referral at this time. Hasn't smoked since 09/08 and declines chantix or patches. Aug, Current smoker (ICD-10 - F17.200) [facility] Other 01-23-2024 Evaluation note* Encounter Date Diagnosis Assessment Notes Treatment Notes Treatment Clinical Notes Aug, Lumbar radicular pain (ICD-10 - M54.16) [facility] Other 01-19-2024 Evaluation note* Encounter Date Diagnosis Assessment Notes Treatment Notes Treatment Clinical Notes Aug, Lumbar radicular pain (ICD-10 - M54.16) [facility] Other 12-26-2023 Evaluation note* Encounter Date Diagnosis Assessment Notes Treatment Notes Treatment Clinical Notes Jul, Type 2 diabetes mellitus with hyperglycemia, without long-term current use of insulin (ICD-10 - E11.65) [facility] Other 12-26-2023 Evaluation note* Encounter Date Diagnosis [...] T3s after shoulder pain has improved post-operatively. [facility] Other 12-04-2023 Evaluation note* Encounter Date Diagnosis Assessment Notes Treatment Notes Treatment Clinical Notes Jul, Type 2 diabetes mellitus with hyperglycemia, without long-term current use of insulin (ICD-10 - E11.65) [facility] Other 12-01-2023 Evaluation note* Encounter Date Diagnosis Assessment Notes Treatment Notes Treatment Clinical Notes Jul, Type 2 diabetes mellitus with hyperglycemia, without long-term current use of insulin (ICD-10 - E11.65) [facility] Other 11-30-2023 Evaluation note* Encounter Date Diagnosis Assessment Notes Treatment Notes Treatment Clinical Notes Jun, Labral tear of shoulder, right, subsequent encounter (ICD-10 - S43.431D) [facility] Other 11-14-2023 Evaluation note* Encounter Date Diagnosis [...] pain (ICD-10 - R07.9) r/o cardiac cause [facility] Other 11-07-2023 Evaluation note* Encounter Date Diagnosis [...] to decrease dose and possibly discontinue medication. [facility] Other 11-02-2023 Evaluation note* Encounter Date Diagnosis Assessment Notes Treatment Notes Treatment Clinical Notes Jun, Acute pain of right shoulder (ICD-10 - M25.511) [facility] Other 10-30-2023 Evaluation note* Encounter Date Diagnosis Assessment Notes Treatment Notes Treatment Clinical Notes May, Acute pain of right shoulder (ICD-10 - M25.511) [facility] Other 10-23-2023 Evaluation note* Encounter Date Diagnosis Assessment Notes Treatment Notes Treatment Clinical Notes May, Acute pain of right shoulder (ICD-10 - M25.511) [facility] Other 10-16-2023 Evaluation note* Encounter Date Diagnosis Assessment Notes Treatment Notes Treatment Clinical Notes May, Acute pain of right shoulder (ICD-10 - M25.511) [facility] Other 10-10-2023 Evaluation note* Encounter Date Diagnosis Assessment Notes Treatment Notes Treatment Clinical Notes May, Acute pain of right shoulder (ICD-10 - M25.511) MRI and surgery planning pending. Pt understands this is a controlled substance and to call in 1 week w update on treatment plan. May, Bronchitis (ICD-10 - J40) Finish antibiotic, rest, hydrate Steroids for wheezing. [facility] Other 10-04-2023 Evaluation note* Encounter Date Diagnosis Assessment Notes Treatment Notes Treatment Clinical Notes May, Acute pain of right shoulder (ICD-10 - M25.511) Reviewed [place] and discussed short term plan of increase in pain medication. He is due for a refill of the T3s presently. Stop them, replace w norco. Pt understands weekly prescription and will need to d/c after anticipated surgery. [facility] Other 09-12-2023 Evaluation note* Encounter Date Diagnosis [...] office and the ER visit on 04/26 [facility] Other 07-05-2023 Evaluation note* Encounter Date Diagnosis [...] and will need less prn pain med. [facility] Other 06-01-2023 Evaluation note* Encounter Date Diagnosis [...] left shoulder (ICD-10 - M25.512) as above. [facility] Other 04-17-2023 Evaluation note* Encounter Date Diagnosis Assessment Notes Treatment Notes Treatment Clinical Notes Nov, Bronchitis (ICD-10 - J40) [facility] Other 04-11-2023 Evaluation note* Encounter Date Diagnosis Assessment Notes Treatment Notes Treatment Clinical Notes Nov, Disc degeneration, lumbar (ICD-10 - M51.36) Nov, Lumbar radicular pain (ICD-10 - M54.16) [facility] Other 04-07-2023 Evaluation note* Encounter Date Diagnosis [...] quit smoking. Pt verbalizes understanding and agreement. [facility] Other 02-15-2023 Evaluation note* Encounter Date Diagnosis Assessment Notes Treatment Notes Treatment Clinical Notes Sep, Lumbar radicular pain (ICD-10 - M54.16) [facility] Other 01-17-2023 Evaluation note* Encounter Date Diagnosis [...] is outlined on the test result page. [facility] Other 10-20-2022 NoteIndication: Calculus in kidney. Comparison: [...] Electronically authenticated by: JOHN PINTO Date: 2022-06-07 20:0706-21-2022 Evaluation note* Encounter Date Diagnosis Assessment Notes [...] of infection, hardware pullout, cuff repair failure, chcf pain and stiffness are well known problems [...] of repair, infection and wound healing delays. [facility] Other 04-26-2022 NotePROCEDURE: XR SHOULDER LT 2V or > COMPARISON: None. HISTORY: Pain of left shoulder joint FINDINGS: BONES:No acute fracture or dislocation. 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 No visible soft tissue swelling. EFFUSION:None visible. OTHER: Negative. IMPRESSION: Mild osteoarthritis Electronically authenticated by: BARBIE MEMBRENO Date: 2021-12-12 15:[address] [place], [place] 0404304-26-2022 Evaluation note* Encounter Date Diagnosis Assessment Notes [...] pain of left shoulder (ICD-10 - M25.512) [facility] Other 10-08-2021 Evaluation note* Encounter Date Diagnosis [...] as needed for cough. Advised patient that [place] contains antihistamine and cough suppressant and to be cautious using other OTC cold medications. Patient to follow up with PCP if symptoms do not improve. Immediate eval if SOB, difficulty breathing, chest pain, dizziness, or other concerning symptoms. Patient verbalizes understanding and is agreeable to treatment plan [facility] Other Evaluation + Plan note No data available for this section [facility] Other Evaluation note* Diagnosis Onset Date Resolution Status Arthralgia acute Lumbar pain acute Type II diabetes mellitus ac morongo [facility] Work Phone: Evaluation note* Diagnosis Onset Date Resolution Status Arthralgia acute Lumbar pain acute Type II diabetes mellitus ac morongo Bilateral hip pain acute [facility] Work Phone: History general Narrative - Reported* Type Description Date Medical History Asthma Medical History skin cancer-lip Surgical History Left lung biopsy 1977 Surgical History L4 and L5 disc fusion 1984 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 Surgical History carpal tunnel release 2016 Surgical History tonsillectomy Hospitalization History 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 Hospitalization History pneumonia [facility] Other Hospital Discharge instructions No data available for this section [facility] No data available for this section [facility] Summary Purpose Family History Relationship Condition Age [...] 1 Epigastric abdominal pain (R10.13) Referral Organization [facility] Referring Provider First Name Hannah Referring Provider Last Name Sona Referring Provider Specialty [facility] Referred Organization [facility] Referred Provider Sai Martinez Referred Address ,[place], [place],[address] Referred Provider Specialty Surgery Referral Priority Routine General Notes Es Camilo 11:38:02 AM >received today, attachments made, notes locked, referral faxed Reason 01/28/23 Access Or tho - B shoulder pain L>R - hopes for injections. Diagnosis 1 Pain in right should er (M25.511) Referral Organization [facility] Referring Provider First Name Hannah Referring Provider Last Name Sona Referring Provider [facility] Referred Organization [facility] Referred Provider Barbie Tapia Referred Address ,[place], [place],[address] Referred Provider Specialty Orthopaedic Surgery Referral Priority [...] in right should er (M25.511) Referral Organization [facility] Referring Provider First Name Hannah Referring Provider Last Name Sona Referring Provider Specialty [facility] Referred Organization [facility] Referred Provider Barbie Tapia Referred Address ,[place], [place],[address] Referred Provider Specialty Orthopaedic Surgery Referral Priority [...] section and content) DATE CREATED AUTHOR 02/10/2022 [facility] DATE CREATED AUTHOR AUTHOR'S ORGANIZ ATION 12/04/2022 [facility] DATE CREATED AUTHOR AUTHOR'S ORGANIZ ATION 06/01/2023 [facility] DATE CREATED AUTHOR AUTHOR'S ORGANIZ ATION 10/07/2023 [facility] EPIC Patient Care team informatio [...] December 17, 2023 End: December 17, 2023 [employer] Relationship Specialty Start Date End Date Hannah Magallanes MD [address] [place] [address] PCP - General Family Medicine 01/23/23 Team [...] BE BASED ON THE PRIMARY CLINICAL RECORDS. [facility]. provides no warranty or guarantee of the accuracy or completeness of information in this document.
--- NOTE | 2024-01-01 07:25 | MR_ITS ---
[place] [id number] Patient Name: ERIC CRAIG MRN: [id number] date: 1960 Sex: M Assigned Patient Location: MRI Current Patient Location: MRI Accession/Order Number: [id number] Exam Date: 01/01/2024 07:49 Report Date: 01/01/2024 08:54 At the request of: INNA SUMNER Procedure: MR lumbar spine wo con EXAMINATION: MR lumbar spine wo con HISTORY: Sacroiliitis, Failed Back Syndrome, Bilateral Hip Pain COMPARISON: No relevant comparison available. TECHNIQUE: A variety of imaging planes and parameters were utilized for visualization of suspected pathology. FINDINGS: For the purposes of numbering, sagittal T2 image # 9 extends from the T11 vertebral body superiorly to the S2-S3 level inferiorly. PARASPINAL AREA: Normal with no visible mass. BONES: Normal alignment with no acute fracture or spondylolisthesis. No bone edema. CORD/CAUDA EQUINA: Normal caliber, contour, and signal intensity. DISC LEVELS: 12-L1: No significant disc/facet abnormality, spinal stenosis, or foraminal stenosis. L1-L2: No significant disc/facet abnormality, spinal stenosis, or foraminal stenosis. L2-L3: No significant disc/facet abnormality, spinal stenosis, or foraminal stenosis. L3-L4: No significant disc/facet abnormality, spinal stenosis, or foraminal stenosis. L4-L5: Moderate disc space narrowing and disc desiccation with endplate sclerosis. Mild diffuse disc/osteophyte complex. Left L4 hemilaminotomy. Moderate bilateral facet osteoarthropathy. No central canal stenosis. Mild bilateral foraminal stenosis. L5-S1: Disc space narrowing. No disc bulge or herniation. No central or foraminal stenosis MR/MR lumbar spine wo con IMPRESSION: Degenerative changes at L4-L5 resulting in mild bilateral foraminal stenosis Electronically authenticated by: BARBIE MEMBRENO Date: 01/01/2024 08:54
== END 2024-01-01 07:19 | disposition home or self-care (01) ==
LOC: MRI 07:18
PROVIDERS: PCP Family Medicine; Visit Provider Nurse Practitioner
DX: M46.1 Sacroiliitis, not elsewhere classified (principal); M25.551 Pain in right hip; M25.552 Pain in left hip; M48.062 Spinal stenosis, lumbar region with neurogenic claudication; M51.36 Other intervertebral disc degeneration, lumbar region; M16.0 Bilateral primary osteoarthritis of hip
CPT/HCPCS: 72114; 72148; 73522

== ENCOUNTER 2024-01-02 07:47 | Outpatient (OUT) | payer MEDICARE, MEDICAID, SELFPAY ==
--- NOTE | 2024-01-02 07:51 | P.CN_ITS ---
Consult Note: HPI Data of Consult Patient: known to practice within the last 3 years Consult date: 12/26/23 Requesting Physician: Janneth Villalta NP Primary Care Provider: Hannah Gallo MD Consult Narrative Reason for consult: establish Narrative: Nichoals Ziegler a pleasant 63 year old male with an extensive history of chronic low back pain post lumbar surgery in 1984, left l4 hemilaminectomy according to MRI. Patient also has a significant history of bilateral hip and groin pain. Patient rating low back and bilateral hip pain 8/10 stabbing pressure stinging, increasing to 10/10 with twisting pushing pulling standing too long transitioning walking activity stairs, pain improved slightly when lying in recliner. Patient has failed to benefit from tylenol, allergy to NSAIDs, failed oxycodone-acetaminophen 5-325mgs, hydrocodone-acetaminophen 10mgs, tylenol #3 1- 2 tabs TID, gabapentin unknown dosage. Patient recently on prednisone for sinus issues without improvement in pain. Patient has failed to benefit from PT and HEP greater than 6 weeks, increases his pain. Previously a patient at [facility] receiving epidurals q2 months for 7 years per patient, last MAGAN 07/11 with benefit. Recently completed updated xrays and MRI of lumbar spine, results below. cc:: CC: Janneth Villalta NP Review of Systems ROS Status of ROS 10 or more systems reviewed and unremark able except as noted in history and below Musculoskeletal Reports: back pain, extremity pain and joint pain [facility] Medical History (Updated 01/02/24 @ 08:26 by Janneth Villalta NP) Tobacco user ?Z72.0 - Tobacco use (ICD-10) Type 2 diabetes mellitus with hyperglycemia ?E11.65 - Type 2 diabetes mellitus with hyperglycemia (ICD-10) Acute exacerbation of chronic obstructive pulmonary disease (COPD) ?J44.1 - Chronic obstructive pulmonary disease with (acute) exacerbation (ICD-10) Lumbar degenerative disc disease ?M51.36 - Other intervertebral disc degeneration, lumbar region (ICD-10) Influenza ?J11.1 - Influenza due to unidentified influenza virus with other respiratory manifestations (ICD-10) Acute bronchospasm ?J98.01 - Acute bronchospasm (ICD-10) Postoperative pain, acute, shoulder ?G89.18 - Other acute postprocedural pain (ICD-10) ?M25.519 - Pain in unspecified shoulder (ICD-10) Fever ?R50.9 - Fever, unspecified (ICD-10) Acute pain of right shoulder ?M25.511 - Pain in right shoulder (ICD-10) Rotator cuff arthropathy of right shoulder ?M12.811 - Other specific arthropathies, not elsewhere classified, right shoulder (ICD-10) Diabetes ?E11.9 - Type 2 diabetes mellitus without complications (ICD-10) COPD (chronic obstructive pulmonary disease) ?J44.9 - Chronic obstructive pulmonary disease, unspecified (ICD-10) Surgical History S/P right rotator cuff repair ?Z98.890 - Other specified postprocedural states (ICD-10) Social History Within the past year, how often did you have a drink containing alcohol: never Score interpretation: A score less than 4 is consistent with normal alcohol consumption. 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 Little interest or pleasure in doing things: not at all Feeling down, depressed, or hopeless: not at all Feel stressed/tense/nervous/anxious/difficulty sleeping: not at all Do you think of yourself as: straight/heterosexual Gender Identity: male Meds Home Medications and Allergies Home Medications ?Medication ?Instructions ?Recorded ?Confirmed ?Type glipizide 5 mg-metformin 500 mg 1 tab PO DAILY 08/23/23 09/08/23 History tablet atorvastatin 20 mg tablet 20 mg PO DAILY 09/08/23 09/08/23 History lancets (Accu-Chek Fastclix Lancet 09/08/23 09/08/23 History Drum) acetaminophen 300 mg-codeine 30 mg tab 12/26/23 History tablet Allergies Allergy/AdvReac Type Severity Reaction Status Date / Time fentanyl Allergy Intermediate Hives Verified 12/26/23 16:20 ofloxacin Allergy Intermediate HIVES Verified 12/26/23 16:20 olodaterol Allergy Intermediate SHORTNESS Verified 12/26/23 16:20 [From Stiolto Respimat] OF BREATH tiotropium Allergy Intermediate SHORTNESS Verified 12/26/23 16:20 [From Stiolto Respimat] OF BREATH zafirlukast Allergy Intermediate Hives Verified 12/26/23 16:20 ibuprofen [From Motrin] AdvReac Mild Verified 09/08/23 19:17 IV dye Allergy Uncoded 09/08/23 19:17 Exam Constitutional Documenting provider has reviewed patient's vital signs: yes Common normals: no apparent distress, oriented x3, healthy appearing, alert and well nourished General appearance: cooperative HENMT Common normals: normocephalic, hearing grossly normal bilaterally and moist oral mucous membranes Head and scalp: normocephalic Eye Common normals: PERRL Pupil: PERRL Neck & C-Spine Common normals: full ROM General: normal visual inspection Chest Common normals: inspection of chest normal Respiratory Common normals: normal respiratory effort, no retractions and no use of accessory muscles Back & Pelvis Lumbar spine/lower back: ROM limited, pain with ROM, lumbar spinal tenderness and straight leg raise negative bilaterally Sacroiliac joints: SI joint(s) abnormal Other: bilateral positive hailee(patricks), gaenslens, thigh thrust, compression test right greater than left decreased sensation bilateral L4-5 pattern, strength 4/5 in BLE Extremity Common normals: normal to inspection and full ROM Right lower extremity: hip joint Left lower extremity: hip joint Other: significant increase in hip/groin pain with internal and external rotation of bilateral hips, right greater than left Neuro Common normals: oriented x3, CN's II-XII intact bilaterally, moves all extr emities, no focal motor deficits, no sensory deficits noted and deep tendon reflexes 2+ bilaterally Sensorium/orientation: alert Gait (neuro): antalgic Motor exam: no movement abnormalities noted and strength abnormal Psych Common normals: mental status grossly normal, thought process normal, cooperative, affect normal, speech normal and activity/motor behavior normal Speech: normal speech Thought process: normal thought process Results Imaging Lumbar MRI: Attestation: I have reviewed the pertinent imaging results. Radiologist's impression: 12-L1: No significant disc/facet abnormality, spinal stenosis, or foraminal stenosis. L1-L2: No significant disc/facet abnormality, spinal stenosis, or foraminal stenosis. L2-L3: No significant disc/facet abnormality, spinal stenosis, or foraminal stenosis. L3-L4: No significant disc/facet abnormality, spinal stenosis, or foraminal stenosis. L4-L5: Moderate disc space narrowing and disc desiccation with endplate sclerosis. Mild diffuse disc/osteophyte complex. Left L4 hemilaminotomy. Moderate bilateral facet osteoarthropathy. No central canal stenosis. Mild bilateral foraminal stenosis. L5-S1: Disc space narrowing. No disc bulge or herniation. No central or foraminal stenosis bilateral hip xray: Attestation: I have reviewed the pertinent imaging results. Radiologist's impression: Mild OA bilateral hips Lumbar Xray: Attestation: I have reviewed the pertinent imaging results. Radiologist's impression: BONES: Neutral projection is normal alignment with no acute fracture or spondylolisthesis. Minimal degenerative spondylosis. Moderate to severe facet osteoarthropathy most significant L4-L5 DISC SPACES: Multilevel disc space narrowing most significant L4-5 PARASPINOUS: Negative. No paraspinous abnormality is seen. OTHER: No transient spondylolisthesis with flexion or extension Additional Findings Additional findings: If on a controlled substance or opioids, I have checked an [place] report on this patient and there are no aberrancies noted in the prescribing history.??If on a controlled substance or opioid a drug screen was completed and reviewed within the last year, and if there has not been a drug screen completed we ordered one today to monitor higher risk, state monitored pain medication use. As part of providing excellent, safe, comprehensive care, the following was completed at our patient's visit: 1. A medication reconciliation and review to ensure accurate knowledge of current/active medications, including asking our patients to inform us about any [id number] medications or herbal remedies/nutritional supplements/alternative remedies. 2. A review to specifically ensure our patients have had annual screening for screening for depression, screening for tobacco use, and screening for unhealthy alcohol use. For concerning screenings had a discussion with the patient, provided patient education, and recommended follow-up with primary care provider when appropriate. If patient noted with a risk of falling, they received education on strength, gait, and balance training to prevent future risk of falling. Assessment and Plan Assessment and Plan (1) Lumbar stenosis with neurogenic claudication: (2) Sacroiliitis: (3) Bilateral primary osteoarthritis of hip: (4) Failed back syndrome: (5) Bilateral hip pain: (6) Chronic prescription opiate use: Assessment and Plan: functional goals: care for self, care for brother, complete housework and take care of the yard, improve pain I feel these medications are improving the patient's quality of life and allow them to tolerate activities of daily living as well as participate in recreational activity.? The patient does not report intolerable side effects. The patient is NOT opioid naive and non-pharmacologic and non-opioid treatment has failed to significantly relieve the patient's pain and improve functionality. The patient has a diagnosis that is related to a somatic or visceral pain etiology. ? ?? I reviewed with the patient the potential risks and side effects with the use of? opioid medications including but not limited to respiratory depression,? sedation, and even . I verified the patient has access to naloxone should? these effects occur. I advised the patient to avoid the use of any other? sedation substances including alcohol, THC, and benzodiazepines while? taking opioid medications due to the risk of compounding side effects and? detrimental outcomes. 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 drug screen, and opioid start talking forms. The patient was advised to let? their family know they had Naloxone in case they would need to administer? the medication.? ?? A drug screen was completed within the last year, and no aberrancies were noted regarding their use of controlled substances. The patient understands they are subject to the terms and conditions of the pain contract that they have signed. ? ?? I have checked an [place]AR[place] report on this patient today and there are no aberrancies noted in the prescribing history.? (7) Chronic pain syndrome: Plan xrays of bilateral hips, lumbar spine, and lumbar MRI reviewed with patient bilateral L4-5 TFESI under fluoroscopy, risks vs benefits reviewed, for failed back syndrome/lumbar stenosis with neurogenic claudication, failed to benefit from greater than 6 weeks of PT/HEP, based on physical exam, patient complaints of pain, and MRI findings bilateral SIJ injection under fluoroscopy, risks vs benefits reviewed, based on physical exam and pain pattern with worsening of pain and functional ability since decreasing and stopping tylenol #3 with PCP, patient found most benefit from 2 tylenol #3 TID PRN. Risks vs benefits discussed. side effects reviewed. Will prescribed tylenol #3 1-2 tabs TID PRN 30 day supply, plan to wean after injection therapy narcan discussed and prescribed continues to have upper axial low back pain and bilateral hip pain, will assess at f/u chronic right shoulder pain now post shoulder surgery f/u 2 weeks after injections
--- OUTSIDE RECORDS SUMMARY | 2024-01-02 08:08 | XMS_ITS | CCD ---
Author Organization [facility] Care Team Providers Care Glass Glazier Name Role Phone Ronnie Kesha Unavailable Chepe [...] Unavailable MAGALLANES, DR HANNAH Jovel Admitting Unavailable MAGALALNES, DR HANNAH Jovel Attending Unavailable MAGALLANES, DR [...] Unavailable Hannah Magallanes MD Primary Care Provider [phone] POCBARBIE SAL Attending Unavailable POCDORON, [place] Referring Unavailable BARBIE TAPIA Attending Unavailable BARBIE TAPIA Attending Unavailable Allergies Allergy Classification Reported Allergen(s) Allergy Type Date of Onset Reaction(s) Facility (20 sources) Ibuprofen Drug Allergy [facility] Other (20 sources) olodaterol / tiotropium Drug Allergy shortness of breath [facility] Other (20 sources) CT Scan dye Propensity to adverse reactions [facility] Other (4 sources) Ibuprofen Drug Allergy 08-19-18 80 [facility] (2 sources) Iodine (And Iodine Containting Drugs) Drug allergy (disorder) 09-07-19 16 [facility] (1 source) NSAIDs Drug allergy (disorder) [facility] (20 sources) fentaNYL Drug Allergy 12-05-19 24 Unknown, [facility] (4 sources) Ibuprofen Drug Allergy 01-15-20 15 [facility] (20 sources) Ofloxacin Drug Allergy 12-05-19 24 Unknown, [facility] (3 sources) zafirlukast Drug Allergy 01-15-20 15 Unknown [facility] Other (20 sources) Zafirlukast *ANTIASTHMATIC AND BRONCHODILATOR AGEN Propensity to adverse reactions Unknown [facility] Other (20 sources) Ibuprofen & Diet Manage Prod *ANALGESICS - ANTI-IN Propensity to adverse reactions Unknown [facility] Other (3 sources) Allergies Reconciled Propensity to adverse reactions Unknown [facility] Other (20 sources) Iodinated contrast media (substance) Drug allergy 06-03-20 19 Rash [facility] Other (3 sources) patient allergy list reviewed by nurse or physicia Propensity to adverse reactions 10-05-19 16 Comment:Done [facility] Other (2 sources) olodaterol Drug Allergy 12-05-19 24 shortness of breath [facility] (2 sources) tiotropium Drug Allergy 12-05-19 24 shortness of breath [facility] (2 sources) Iodinated Contrast Media Allergy to substance 12-05-19 [facility] (2 sources) Ibuprofen & Diet Manage Prod * Allergy to substance 12-04-19 [facility] (2 sources) Zafirlukast *ANTIASTHMATIC AND Allergy to substance 12-04-19 [facility] Medications Current Medications Medication Drug Class(es) Dates [...] as needed Orally every 6 hrs Active [id number] actuat albuterol 0.09 mg/actuat metered dose [...] Start: 07-19-2023 take 2 tablets by mo [facility] in the morning glipiZIDE-metFORMIN (Metaglip) 5-500 MG tablet Take 2 tablets by mouth in the morning and 2 tablets before bedtime. 0 07/19/2023 Active take 2 tablets by mo [facility] twice daily glipiZIDE-metFORMIN HCl [...] Active Start: 11-23-2022 take 2 tablets by [facility] every twenty-four hours predniSONE [...] days May, Active Start: 2023 HYDROcodone-ac etaminophen ([place]) 10-325 MG tablet Start: 2023 take 1 [...] 30 mg oral tablet (5 sources) Uncompetitive G-vcrdfr-I-aspartate Receptor Antagonist, Sigma-1 Agonist Start: 05-26-2021 take 1 tablet by mouth every eight hours Norlina DMT 30-30 MG 1 tablet Orally every [...] 10-05-2015 Episodic Other aftercare (1 source) Other [facility] (current) drug therapy; Translations: [OTH SHRUB GROWER CURRENT DRUG THERAPY] Onset: 12-29-2021 Episodic Other [...] Basophils (Bld) [#/Vol] 0.1 10 3/uL 0.0-0.1 [facility] Basophils/100 WBC Auto (Bld) on 12-05-2023 Basophils/100 WBC (Bld) 0.9 % 0.2-2.0 [facility] Eosinophils/100 WBC Auto (Bl d)on 12-05-2023 Eosinophils/100 WBC (Bld) 2.7 % 0.9-7.0 [facility] Erythrocyte distribution wid th Auto (RBC) [Ratio]on 12-05-2023 Erythrocyte distribution width (RBC) [Ratio] 13.1 % 11.0-15.0 [facility] Estimated glomerular filtrat ion rate (GFR) non- Americanon 12-05-2023 GFR/1.73 sq M.predicted among non-blacks MDRD (S/P/Bld) [Vol rate/Area] mL/min/{1.73_m2} >=60 [facility] Glucose mean value [Mass/vol ume] in Blood Estimated from glycated hemoglobinon 12-05-2023 Average glucose Estimated from glycated hemoglobin (Bld) [Mass/Vol] 171 mg/dL [facility] Hematocrit Auto (Bld) [Volum e fraction]on 12-05-2023 Hematocrit (Bld) [Volume fraction] 48.9 % 42.0-54.0 [facility] Hemoglobin [Mass/volume] in Bloodon 12-05-2023 Hemoglobin (Bld) [Mass/Vol] 16.0 g/dL 14.0-18.0 [facility] Laboratory - Chemistry and C hemistry - challengeon 12-05-2023 Calcium [Mass/Vol] 9.7 mg/dL 8.5-10.1 [facility] Chloride [Moles/Vol] 102 mmol/L 98-107 [facility] CO2 [Moles/Vol] 27.6 mmol/L 21.0-32.0 [facility] Creatinine [Mass/Vol] 1.01 mg/dL 0.70-1.30 [facility] GFR/1.73 sq M.predicted MDRD (S/P/Bld) [Vol rate/Area] mL/min/{1.73_m2} >=60 [facility] Glucose [Mass/Vol] 156 mg/dL 74-106 [facility] Potassium [Moles/Vol] 4.4 mmol/L 3.5-5.1 [facility] Sodium [Moles/Vol] 139 mmol/L 136-145 [facility] Urea nitrogen [Mass/Vol] 13.0 mg/dL 7.0-18.0 [facility] Urea nitrogen/Creatinine [Mass ratio] 12.9 mg/mg [facility] Laboratory - Hematology and Cell countson 12-05-2023 ESR (Bld) [Velocity] 17 mm/h <=20 [facility] HbA1c (Bld) [Mass fraction] 7.6 % 4.5-6.2 [facility] Comment on above: ADA RECOMMENDED LIMI T 4.0 - 6.0ADA THERAPEUTIC TARGET < 7.0ACTION SUGGESTED> 7.0 Immature granulocytes/100 WBC (Bld) 0.4 % 0.0-0.5 [facility] Leukocytes [#/volume] correc jean claude for nucleated erythrocytes in Blood by Automated counon 12-05-2023 WBC corrected for nucl RBC Auto (Bld) [#/Vol] 7.7 10 3/uL 4.0-11.0 [facility] Lymphocytes Auto (Bld) [#/Vo l]on 12-05-2023 Lymphocytes (Bld) [#/Vol] 2.4 10 3/uL 1.2-3.8 [facility] Lymphocytes/100 WBC Auto (Bl d)on 12-05-2023 Lymphocytes/100 WBC (Bld) 31.2 % 20.5-60.0 [facility] MCH Auto (RBC) [Entitic mass ]on 12-05-2023 MCH (RBC) [Entitic mass] 28.5 pg 25.9-34.0 [facility] MCHC Auto (RBC) [Mass/Vol]on 12-05-2023 MCHC (RBC) [Mass/Vol] 32.7 g/dL 29.9-35.2 [facility] MCV Auto (RBC) [Entitic vol] on 12-05-2023 MCV (RBC) [Entitic vol] 87.0 fL 80.0-94.0 [facility] Monocytes Auto (Bld) [#/Vol] on 12-05-2023 Monocytes (Bld) [#/Vol] 0.7 10 3/uL 0.3-0.8 [facility] Monocytes/100 WBC Auto (Bld) on 12-05-2023 Monocytes/100 WBC (Bld) 9.5 % 1.7-12.0 [facility] Neutrophils Auto (Bld) [#/Vo l]on 12-05-2023 Neutrophils (Bld) [#/Vol] 4.2 10 3/uL 1.4-6.5 [facility] Neutrophils/100 WBC Auto (Bl d)on 12-05-2023 Neutrophils/100 WBC (Bld) 55.3 % 43.0-75.0 [facility] No Panel Informationon 12-04 Eosinophils # (Auto) 0.2 10 3/uL 0.0-0.7 [facility] Immature Granulocyte # (Auto) 0.03 10 3/uL 0.00-0.03 [facility] Platelet mean volume Auto (B ld) [Entitic vol]on 12-05-2023 Platelet mean volume (Bld) [Entitic vol] 8.6 fL 9.5-13.5 [facility] Platelets Auto (Bld) [#/Vol] on 12-05-2023 Platelets (Bld) [#/Vol] 330 10 3/uL 150-450 [facility] RBC Auto (Bld) [#/Vol]on RBC (Bld) [#/Vol] 5.62 10 6/uL 4.70-6.10 [facility] Serum or plasma anion gap de terminationon 12-05-2023 Anion gap [Moles/Vol] 13.8 mmol/L [facility] Magnesiumon 07-02-2023 Magnesium [Mass/Vol] 2.3062390 mg/dL Normal 1.8-2.4 mg/dL [employer] [facility] Other Magnesium see note [employer] [facility] Other MRI Shoulder w/o Contrast [facility] 05-31-2023 MRI Shoulder w/o Contrast Right [...] TAMARA Technologist: STELLA Technical Comments None Normal [facility] Consent for Treatmenton 05-19 Consent for Treatment [id number] .00TIFF Normal [facility] RAD - MRI Screening Formon 1 RAD - MRI Screening Form [id number]. 00TIFF Normal [facility] Physician Orderon 05-09-2023 Physician Order [id number]# 1.00CD:127 Normal [facility] XR CHEST 2 Von 11-24-2022 XR [...] RUBI TAVERAS Date: 2022-11-24 17:17 Normal [facility] CT LUNG CANCER SCREENINGon 1 09-20-2021 CT [...] YEISON NAVAS Date: 2022-07-20 07:18 Normal [facility] CBC AUTO DIFFon 06-07-2022 BASO # 0.1 103/ul Normal 0.0-0.1 [facility] Comment on above: Performed By: #### C BC #### [facility] [address] [place] [address] Dr. Eran Chacon Basophils/100 WBC (Bld) 0.6 % Normal 0.2-2.0 [facility] Comment on above: Performed By: #### C BC #### [facility] [address] [address] [address] Eran Chacon EO # 0.3 103/ul Normal 0.0-0.7 [facility] Comment on above: Performed By: #### C BC #### [facility] [address] [place] [address] Dr. Eran Chacon Eosinophils/100 WBC (Bld) 3.3 % Normal 0.9-7.0 [facility] Comment on above: Performed By: #### C BC #### [facility] [address] [place] [address] Dr. Eran Chacon Erythrocyte distribution width (RBC) [Ratio] 12.9 % Normal 11.0-15.0 [facility] Comment on above: Performed By: #### C BC #### [facility] [address] [place] [address] Dr. Eran Chacon Hematocrit (Bld) [Volume fraction] 47.7 % Normal 42.0-54.0 [facility] Comment on above: Performed By: #### C BC #### [facility] [address] [place] [address] Dr. Eran Chacon Hemoglobin (Bld) [Mass/Vol] 15.9 g/dL Normal 14.0-18.0 [facility] Comment on above: Performed By: #### C BC #### [facility] [address] [place] [address] Dr. Eran Chacon IG # 0.02 10e3/ul Normal 0.00-0.03 [facility] Comment on above: Performed By: #### C BC #### [facility] [address] [place] [address] Dr. Eran Chacon IG % 0.2 % Normal 0.0-0.5 [facility] Comment on above: Performed By: #### C BC #### [facility] [address] [place] [address] Dr. Eran Chacon LYMPH # 3.4 103/ul Normal 1.2-3.8 [facility] Comment on above: Performed By: #### C BC #### [facility] [address] [place] [address] Dr. Eran Chacon Lymphocytes/100 WBC (Bld) 34.5 % Normal 20.5-60.0 [facility] Comment on above: Performed By: #### C BC #### [facility] [address] [place] [address] Dr. Eran Chacon MANUAL DIFF REQ NO Normal [facility] Comment on above: Performed By: #### C BC #### [facility] [address] [address] [address] Eran Chacon MCH (RBC) [Entitic mass] 29.6 pg Normal 25.9-34.0 [facility] Comment on above: Performed By: #### C BC #### [facility] [address] [address] [address] Eran Chacon MCHC (RBC) [Mass/Vol] 33.3 g/dL Normal 29.9-35.2 [facility] Comment on above: Performed By: #### C BC #### [facility] [address] [address] [address] Eran Chacon MCV (RBC) [Entitic vol] 88.8 fL Normal 80.0-94.0 [facility] Comment on above: Performed By: #### C BC #### [facility] [address] [place] [address] Dr. Eran Chacon MONO # 0.9 103/ul Critically high 0.3-0.8 [facility] Comment on above: Performed By: #### C BC #### [facility] [address] [address] [address] Eran Chacon Monocytes/100 WBC (Bld) 9.3 % Normal 1.7-12.0 [facility] Comment on above: Performed By: #### C BC #### [facility] [address] [place] [address] Dr. Eran Chacon NEUT # 5.2 103/ul Normal 1.4-6.5 [facility] Comment on above: Performed By: #### C BC #### [facility] [address] [place] [address] Dr. Eran Chacon Neutrophils/100 WBC (Bld) 52.1 % Normal 43.0-75.0 [facility] Comment on above: Performed By: #### C BC #### [facility] [address] [place] [address] Dr. Eran Chacon Platelet mean volume (Bld) [Entitic vol] 8.8 fL Critically low 9.5-13.5 [facility] Comment on above: Performed By: #### C BC #### [facility] [address] [place] [address] Dr. Eran Chacon PLT 287 103/ul Normal 150-450 [facility] Comment on above: Performed By: #### C BC #### [facility] [address] [place] [address] Dr. Eran Chacon RBC 5.37 106/ul Normal 4.70-6.10 [facility] Comment on above: Performed By: #### C BC #### [facility] [address] [place] [address] Dr. Eran Chacon WBC 9.9 103/ul Normal 4.0-11.0 [facility] Comment on above: Performed By: #### C BC #### [facility] [address] [place] [address] Dr. Eran Chacon ER URINE PROFILEon 2 Bilirubin Ql (U) Negative Normal NEGATIVE [facility] Comment on above: Performed By: #### BISHNU BATESRO #### [facility] [address] [place] [address] Dr. Eran Chacon Clarity (U) CLEAR Normal CLEAR [facility] Comment on above: Performed By: #### BISHNU BATESRO #### [facility] [address] [place] [address] Dr. Eran Chacon Color (U) YELLOW Normal YELLOW [facility] Comment on above: Performed By: #### BISHNU BATESRO #### [facility] [address] [place] [address] Dr. Eran GATES A micrscopic examination will be performed if indicated. Normal [facility] Comment on above: Performed By: #### BISHNU BATESRO #### [facility] [address] [place] [address] Dr. Eran Chacon Glucose Ql (U) 500 mg/dl Abnormal NEGATIVE [facility] Comment on above: Performed By: #### BISHNU BATESRO #### [facility] [address] [place] [address] Dr. Eran Chacon Hemoglobin Ql (U) TRACE-INTACT Abnormal NEGATIVE [facility] Comment on above: Performed By: #### Med SHER UMICRO #### [facility] [address] [place] [address] Dr. Eran Chacon Ketones Ql (U) Negative Normal NEGATIVE [facility] Comment on above: Performed By: #### Med SHER UMICRO #### [facility] [address] [place] [address] Dr. Eran Chacon LEUKOCYTES Negative Normal NEGATIVE [facility] Comment on above: Performed By: #### Med SHER UMICRO #### [facility] [address] [place] [address] Dr. Eran Chacon Nitrite Ql (U) Negative Normal NEGATIVE [facility] Comment on above: Performed By: #### Med SHER UMICRO #### [facility] [address] [place] [address] Dr. Eran Chacon pH (U) 6.0 [pH] Normal 5-9 [facility] Comment on above: Performed By: #### Med SHER UMICRO #### [facility] [address] [place] [address] Dr. Eran Chaocn SPEC GRAVITY 1.025 Normal 1.005-<=1.025 [facility] Comment on above: Performed By: #### Med SHER UMICRO #### [facility] [address] [place] [address] Dr. Eran Chcaon UA PROTEIN Negative Normal NEGATIVE/ TRACE [facility] Comment on above: Performed By: #### Med SHER UMICRO #### [facility] [address] [place] [address] Dr. Eran Chacon UR MICRO IND INDICATED Normal [facility] Comment on above: Performed By: #### Med SHER UMICRO #### [facility] [address] [place] [address] Dr. Eran Chacon Urobilinogen Qn (U) 0.2 {Aureliano'U}/dL Normal 0.2 - 1. 0 [facility] Comment on above: Performed By: #### E HANNA SHER #### [facility] [address] [place] [address] Dr. Eran Chacon PROF 14(COMP METB)on 06-07- 022 Albumin [Mass/Vol] 4.0 g/dL Normal 3.4-5.0 [facility] Comment on above: Performed By: #### C MP #### [facility] [address] [place] [address] Dr. Eran Chacon Albumin/Globulin [Mass ratio] 1.2 {ratio} Normal [facility] Comment on above: Performed By: #### C MP #### [facility] [address] [place] [address] Dr. Eran Chacon ALP [Catalytic activity/Vol] 104 U/L Normal 46-116 [facility] Comment on above: Performed By: #### C MP #### [facility] [address] [place] [address] Dr. Eran Chacon ALT [Catalytic activity/Vol] 28 U/L Normal 16-63 [facility] Comment on above: Performed By: #### C MP #### [facility] [address] [place] [address] Dr. Eran Chacon Anion gap [Moles/Vol] 7.2 mmol/L Normal [facility] Comment on above: Performed By: #### C MP #### [facility] [address] [place] [address] Dr. Eran Chacon AST [Catalytic activity/Vol] 14 U/L Critically low 15-37 [facility] Comment on above: Performed By: #### C MP #### [facility] [address] [place] [address] Dr. Eran Chacon Bilirubin [Mass/Vol] 0.4 mg/dL Normal 0.2-1.0 [facility] Comment on above: Performed By: #### C MP #### [facility] [address] [place] [address] Dr. Eran Chacon Calcium [Mass/Vol] 9.0 mg/dL Normal 8.5-10.1 [facility] Comment on above: Performed By: #### C MP #### [facility] [address] [address] [address] Eran Chacon Chloride [Moles/Vol] 103 mmol/L Normal 98-107 [facility] Comment on above: Performed By: #### C MP #### [facility] [address] [address] [address] Eran Chacon CO2 [Moles/Vol] 30.0 mmol/L Normal 21.0-32.0 [facility] Comment on above: Performed By: #### C MP #### [facility] [address] [address] [address] Eran Chacon Creatinine [Mass/Vol] 0.85 mg/dL Normal 0.70-1.30 [facility] Comment on above: Performed By: #### C MP #### [facility] [address] [place] [address] Dr. Eran Chacon EGFR-AF PUERTO RICAN >60 Normal >=60 [facility] Comment on above: Performed By: #### C MP #### [facility] [address] [place] [address] Dr. Eran Chacon EGFR-NON AF PUERTO RICAN >60 Normal >=60 [facility] Comment on above: Performed By: #### C MP #### [facility] [address] [address] [address] Eran Chacon Globulin (S) [Mass/Vol] 3.3 g/dL Normal [facility] Comment on above: Performed By: #### C MP #### [facility] [address] [address] [address] Eran Chacon Glucose [Mass/Vol] 165 mg/dL Critically high 74-106 [facility] Comment on above: Performed By: #### C MP #### [facility] [address] [address] [address] Eran Chacon Potassium [Moles/Vol] 4.2 mmol/L Normal 3.5-5.1 [facility] Comment on above: Performed By: #### C MP #### [facility] [address] [place] [address] Dr. Eran Chacon Protein [Mass/Vol] 7.3 g/dL Normal 6.4-8.2 [facility] Comment on above: Performed By: #### C MP #### [facility] [address] [place] [address] Dr. Eran Chacon Sodium [Moles/Vol] 136 mmol/L Normal 136-145 [facility] Comment on above: Performed By: #### C MP #### [facility] [address] [place] [address] Dr. Eran Chacon Urea nitrogen [Mass/Vol] 10.0 mg/dL Normal 7.0-18.0 [facility] Comment on above: Performed By: #### C MP #### [facility] [address] [place] [address] Dr. Eran Chacon Urea nitrogen/Creatinine [Mass ratio] 11.8 mg/mg Normal [facility] Comment on above: Performed By: #### C MP #### [facility] [address] [place] [address] Dr. Eran Chacon URINE MICROSCOPIC ONLYon BACTERIA NONE SEEN Normal NONE SEEN [facility] Comment on above: Performed By: #### BISHNU BATESRO #### [facility] [address] [place] [address] Dr. Eran Chacon Bacteria identified Cx Nom (U) NOT INDICATED Normal [facility] Comment on above: Performed By: #### Med SHER UMICRO #### [facility] [address] [place] [address] Dr. Eran Chacon CAST NONE SEEN Normal NONE SEEN [facility] Comment on above: Performed By: #### Med SHER UMICRO #### [facility] [address] [place] [address] Dr. Eran Chacon Crystals LM Nom (Urine sed) NONE SEEN Normal NONE SEEN [facility] Comment on above: Performed By: #### Med SHER UMICRO #### [facility] [address] [place] [address] Dr. Eran Chacon Epithelial cells LM Ql (Urine sed) RARE Normal NONE SEEN /RARE [facility] Comment on above: Performed By: #### E RUR, UMICRO #### [facility] [address] [address] [address] Eran Chacon MUCOUS NONE SEEN Normal NONE SEEN [facility] Comment on above: Performed By: #### E RUR, UMICRO #### [facility] [address] [address] [address] Eran Chacon RBC 0-2 Normal 0-2 [facility] Comment on above: Performed By: #### E RUR, UMICRO #### [facility] [address] [address] [address] Eran Chacon WBC 2-5 Abnormal NONE SEEN [facility] Comment on above: Performed By: #### E RUR, UMICRO #### [facility] [address] [address] [address] Eran Chacon MRI SHOULDER LT WO [...] by: YEISON NAVAS Date: 2022-02-02 17:09 Normal [facility] XR shoulder LT min 2V*on XR shoulder LT min 2V* [facility] [place] [address] [place] [address] XRay Report Signed Patient: Nicholas Ziegler MR#: [id number] : 1960 Acct:[id number] Age/Sex: 61 / M ADM Date: 01/25/22 Loc: [facility] Room: Type: [facility] Attending Dr: Kesha Trujillo MD Ordering Provider: [...] Otilia Nunez M.D.01/25/2022 11:41 AM Dictation Location: [place] [address] Transcribed By: [facility] 01/25/22 1141 Dictated By: Otilia Nunez MD 01/25/22 1139 Signed By: 01/25/22 1141 Normal [facility] Vital Signs Date Time Vital Sign Value Performing Clinician Facility 12-17-2023 08:54-0400 Body height 175.26 cm [facility] 12-17-2023 08:54-0400 Body mass index (BMI) [Ratio] 35.2 kg/m2 [facility] 12-17-2023 08:54-0400 Body weight 108.4 kg [facility] 12-17-2023 08:54-0400 Diastolic blood pressure 76 mm[Hg] [facility] 12-17-2023 08:54-0400 Heart rate 76 /min [facility] 12-17-2023 08:54-0400 Systolic blood pressure 154 mm[Hg] [facility] 12-05-2023 08:52-0400 Body height 175.26 cm [facility] 12-05-2023 08:52-0400 Body mass index (BMI) [Ratio] 35 kg/m2 [facility] 12-05-2023 08:52-0400 Body weight 107.67 kg [facility] 12-05-2023 08:52-0400 Diastolic blood pressure 78 mm[Hg] [facility] 12-05-2023 08:52-0400 Heart rate 69 /min [facility] 12-05-2023 08:52-0400 Systolic blood pressure 147 mm[Hg] [facility] 09-13-2023 13:30-0500 Body height 175.26 cm Hannah Magallanes Other [facility] 09-13-2023 13:30-0500 Body mass index (BMI) [Ratio] 33.22 kg/m2 Hannah Magallanes Other [facility] Other 09-13-2023 13:30-0500 Body temperature 98.4 [degF] Hannah Magallanes Other [facility] Other 09-13-2023 13:30-0500 Body weight 102.06 kg Hannah Magallanes Other [facility] Other 09-13-2023 13:30-0500 Body weight 102.05 kg [facility] 09-13-2023 13:30-0500 Diastolic blood pressure 80 mm[Hg] Hannah Magallanes Other [facility] 09-13-2023 13:30-0500 SaO2% (BldA) [Mass fraction] 93 % Hannah Magallanes Other [facility] [employer] Other 09-13-2023 13:30-0500 Systolic blood pressure 118 mm[Hg] Hannah Magallanes Other [facility] 08-13-2023 10:30-0500 Body height 175.26 cm Hannah Magallanes Other [facility] Other 08-13-2023 10:30-0500 Body mass index (BMI) [Ratio] 33.9 kg/m2 Hannah Magallanes Other [facility] Other 08-13-2023 10:30-0500 Body weight 104.15 kg Hannah Magallanes Other [facility] Other 08-13-2023 10:30-0500 Diastolic blood pressure 78 mm[Hg] Hannah Magallanes Other [facility] Other 08-13-2023 10:30-0500 Systolic blood pressure 124 mm[Hg] Hannah Magallanes Other [facility] Other 06-25-2023 08:45-0500 Body height 175.26 cm Hannah Magallanes Other [facility] Other 06-25-2023 08:45-0500 Body mass index (BMI) [Ratio] 33.37 kg/m2 Hannah Magallanes Other [facility] Other 06-25-2023 08:45-0500 Body temperature 96.5 [degF] Hannah Magallanes Other [facility] Other 06-25-2023 08:45-0500 Body weight 102.51 kg Hannah Magallanes Other [facility] Other 06-25-2023 08:45-0500 Diastolic blood pressure 85 mm[Hg] Hannah Magallanes Other [facility] Other 06-25-2023 08:45-0500 Systolic blood pressure 149 mm[Hg] Hannah Magallanes Other [facility] Other 05-28-2023 10:45-0400 Body height 175.26 cm Hannah Magallanes Other [facility] Other 05-28-2023 10:45-0400 Body mass index (BMI) [Ratio] 33.52 kg/m2 Hannah Magallanes Other [facility] Other 05-28-2023 10:45-0400 Body weight 102.97 kg Hannah Magallanes Other [facility] Other 05-28-2023 10:45-0400 Diastolic blood pressure 82 mm[Hg] Hannah Magallanes Other [facility] Other 05-28-2023 10:45-0400 Systolic blood pressure 147 mm[Hg] Hannah Magallanes Other [facility] Other 2023 08:45-0400 Body height 175.26 cm Hannah Magallanes Other [facility] Other 2023 08:45-0400 Body mass index (BMI) [Ratio] 33.52 kg/m2 Hannah Magallanes Other [facility] Other 2023 08:45-0400 Body weight 102.97 kg Hannah Magallanes Other [facility] Other 2023 08:45-0400 Diastolic blood pressure 85 mm[Hg] Hannah Magallanes Other [facility] Other 2023 08:45-0400 Systolic blood pressure 156 mm[Hg] Hannah Magallanes Other [facility] Other 04-30-2023 09:45-0400 Body height 175.26 cm Hannah Magallanes Other [facility] Other 04-30-2023 09:45-0400 Body mass index (BMI) [Ratio] 34.32 kg/m2 Hannah Magallanes Other [facility] Other 04-30-2023 09:45-0400 Body temperature 96.2 [degF] Hannah Magallanes Other [facility] Other 04-30-2023 09:45-0400 Body weight 105.42 kg Hannah Magallanes Other [facility] Other 04-30-2023 09:45-0400 Diastolic blood pressure 78 mm[Hg] Hannah Magallanes Other [facility] Other 04-30-2023 09:45-0400 Respiratory rate 16 /min Hannah Magallanes Other [facility] Other 04-30-2023 09:45-0400 Systolic blood pressure 146 mm[Hg] Hannah Magallanes Other [facility] Other 02-20-2023 09:15-0400 Body height 175.26 cm Hannah Magallanes Other [facility] Other 02-20-2023 09:15-0400 Body mass index (BMI) [Ratio] 33.46 kg/m2 Hannah Magallanes Other [facility] Other 02-20-2023 09:15-0400 Body weight 102.79 kg Hannah Magallanes Other [facility] Other 02-20-2023 09:15-0400 Diastolic blood pressure 77 mm[Hg] Hannah Magallanes Other [facility] Other 02-20-2023 09:15-0400 Systolic blood pressure 131 mm[Hg] Hannah Magallanes Other [facility] Other 01-17-2023 08:45-0400 Body height 175.26 cm Hannah Magallanes Other [facility] Other 01-17-2023 08:45-0400 Body mass index (BMI) [Ratio] 33.37 kg/m2 Hannah Magallanes Other [facility] Other 01-17-2023 08:45-0400 Body weight 102.51 kg Hannah Magallanes Other [facility] Other 01-17-2023 08:45-0400 Diastolic blood pressure 79 mm[Hg] Hannah Magallanes Other [facility] Other 01-17-2023 08:45-0400 Systolic blood pressure 128 mm[Hg] Hannah Magallanes Other [facility] Other 11-23-2022 09:30-0400 Body height 175.26 cm Hannah Magallanes Other [facility] Other 11-23-2022 09:30-0400 Body mass index (BMI) [Ratio] 33.96 kg/m2 Hannah Magallanes Other [facility] Other 11-23-2022 09:30-0400 Body weight 104.33 kg Hannah Magallanes Other [facility] Other 11-23-2022 09:30-0400 Diastolic blood pressure 72 mm[Hg] Hannah Magallanes Other [facility] Other 11-23-2022 09:30-0400 Systolic blood pressure 122 mm[Hg] Hannah Magallanes Other [facility] Other 09-04-2022 11:30-0500 Body height 175.26 cm Hannah Magallanes Other [facility] Other 09-04-2022 11:30-0500 Body mass index (BMI) [Ratio] 33.52 kg/m2 Hannah Magallanes Other [facility] Other 09-04-2022 11:30-0500 Body weight 102.97 kg Hannah Magallanes Other [facility] Other 09-04-2022 11:30-0500 Diastolic blood pressure 80 mm[Hg] Hannah Magallanes Other [facility] Other 09-04-2022 11:30-0500 SaO2% (BldA) [Mass fraction] 95 % Hannah Magallanes Other [facility] Other 09-04-2022 11:30-0500 Systolic blood pressure 122 mm[Hg] Hannah Magallanes Other [facility] Other 02-06-2022 12:45-0400 Body height 175.26 cm Kesha Olexa Other [facility] Other 02-06-2022 12:45-0400 Body mass index (BMI) [Ratio] 31.01 kg/m2 Kesha Olexa Other [facility] Other 02-06-2022 12:45-0400 Body weight 95.26 kg Kesha Olexa Other [facility] Other 05-26-2021 13:15-0400 Body height 175.26 cm Harriet Ginty Other [facility] Other 05-26-2021 13:15-0400 Body mass index (BMI) [Ratio] 31.01 kg/m2 Harriet Ginty Other [facility] Other 05-26-2021 13:15-0400 Body temperature 98.3 [degF] Harriet Ginty Other [facility] Other 05-26-2021 13:15-0400 Body weight 95.26 kg Harriet Ginty Other [facility] Other 05-26-2021 13:15-0400 SaO2% (BldA) [Mass fraction] 96 % Harriet Ginty Other [facility] Other Encounters Encounter Date Encounter Type Care Provider Facility Start: 12-17-2023 End: 12-17-2023 ambulatory [facility] Work Phone: Start: 12-17-2023 End: 12-17-2023 Patient encounter procedure [facility] Work Phone: Start: 12-05-2023 End: 12-05-2023 ambulatory [facility] Work Phone: Start: 12-05-2023 End: 12-05-2023 Patient encounter procedure [facility] Work Phone: Start: 10-23-2023 Non-patient / Non-visit [facility] Work Phone: Start: 10-08-2023 Non-patient / Non-visit [facility] Work Phone: Start: 10-07-2023 End: 10-07-2023 ambulatory BARBIE Tellez POCOS Not Available Start: 09-18-2023 End: 09-18-2023 ambulatory Hannah Magallanes Other [facility] Other Start: 09-18-2023 Telephone encounter Hannah Sona [facility] Start: 09-13-2023 End: 09-13-2023 ambulatory Hannah Sona Other [facility] Other Start: 09-13-2023 Office outpatient vi sit 15 minutes Hannah Magallanes [facility] Start: 09-13-2023 End: 09-13-2023 Patient encounter procedure [facility]- Start: 09-11-2023 Telephone encounter Argentina coleman PT [...] 09-10-2023 End: 09-10-2023 ambulatory Hannah Magallanes Other [facility] Other Start: 09-10-2023 Telephone encounter Hannah Magallanes [facility] Start: 09-06-2023 End: 09-06-2023 ambulatory Hannah Magallanes Other [facility] Other Start: 09-06-2023 Telephone encounter Hannah Magallanes [facility] Start: 09-02-2023 End: 09-02-2023 ambulatory HI POCOS Not Available Start: 08-20-2023 End: 08-20-2023 ambulatory Hannah Magallanes Other [facility] Other Start: 08-20-2023 Telephone encounter Hannah Magallanes [facility] Start: 08-13-2023 End: 08-13-2023 ambulatory Hannah Magallanes Other [facility] Other Start: 08-13-2023 Office outpatient vi sit 25 minutes Hannah Magallanes [facility] Start: 08-13-2023 Telephone encounter Hannah Magallanes [facility] Start: 08-06-2023 End: 08-06-2023 ambulatory Hannah Magallanes Other [facility] Other Start: 08-06-2023 Telephone encounter Hannah Magallanes [facility] Start: 07-29-2023 End: 07-29-2023 ambulatory HI POCOS Not Available Start: 07-22-2023 End: 07-22-2023 ambulatory Hannah Magallanes Other [facility] Other Start: 07-22-2023 Telephone encounter Hannah Magallanes [facility] Start: 07-19-2023 End: 07-19-2023 ambulatory Hannah Magallanes Other [facility] Other Start: 07-19-2023 Telephone encounter Hannah Magallanes [facility] Start: 07-18-2023 End: 07-18-2023 ambulatory Hannah Magallanes Other [facility] Other Start: 07-18-2023 Telephone encounter Hannah Magallanes [facility] Start: 07-02-2023 End: 07-02-2023 ambulatory Hannah Magallanes Other [facility] Other Start: 07-02-2023 Office outpatient vi sit 15 minutes Hannah Magallanes [facility] Start: 07-02-2023 Telephone encounter Hannah Magallanes [facility] Start: 06-25-2023 End: 06-25-2023 ambulatory Hannah Magallanes Other [facility] Other Start: 06-25-2023 Office outpatient vi sit 15 minutes Hannah Magallanes [facility] Start: 06-21-2023 End: 06-21-2023 ambulatory Hannah Magallanes Other [facility] Other Start: 06-21-2023 Encounter by compute r link Hannah Magallanes [facility] Start: 06-20-2023 End: 06-20-2023 ambulatory Hannah Magallanes Other [facility] Other Start: 06-20-2023 Telephone encounter Hannah Magallanes [facility] Start: 06-17-2023 End: 06-17-2023 ambulatory Hannah Magallanes Other [facility] Other Start: 06-17-2023 Telephone encounter Hannah Magallanes [facility] Start: 06-10-2023 End: 06-10-2023 ambulatory Hannah Magallanes Other [facility] Other Start: 06-10-2023 Telephone encounter Hannah Magallanes [facility] Start: 06-03-2023 End: 06-03-2023 ambulatory Hannah Sona Other [facility] Other Start: 06-03-2023 Telephone encounter Hannah Sona [facility] Start: 05-30-2023 End: 05-31-2023 ambulatory Hi Pocos Facility:[facility] Start: 05-30-2023 End: 05-30-2023 Patient encounter procedure Barbie Tellez Poc[facility] Start: 05-28-2023 End: 05-28-2023 ambulatory Hannah Magallanes Other [facility] Other Start: 05-28-2023 Office outpatient vi sit 15 minutes Hannah Magallanes [facility] Start: 2023 End: 2023 ambulatory Hannah Sona Other [facility] Other Start: 2023 Office outpatient vi sit 15 minutes Hannah Sona [facility] Start: 05-16-2023 End: 05-16-2023 ambulatory Hannah Sona Other [facility] Other Start: 05-16-2023 Telephone encounter Hannah Sona [facility] Start: 04-30-2023 End: 04-30-2023 ambulatory Hannah Sona Other [facility] Other Start: 04-30-2023 Office outpatient vi sit 15 minutes Hannah Sona [facility] Start: 04-26-2023 End: 04-26-2023 ambulatory Hannah Sona Other [facility] Other Start: 04-26-2023 Telephone encounter Hannah Sona [facility] Start: 04-23-2023 End: 04-23-2023 ambulatory Hannah Sona Other [facility] Other Start: 04-23-2023 Telephone encounter Hannah Sona [facility] Start: 03-25-2023 End: 03-25-2023 ambulatory Hannah Sona Other [facility] Other Start: 03-25-2023 Telephone encounter Hannah Sona [facility] Start: 03-06-2023 End: 03-06-2023 ambulatory Hannah Magallanes Other [facility] Other Start: 03-06-2023 Telephone encounter Hannah Sona [facility] Start: 02-20-2023 End: 02-20-2023 ambulatory Hannah Magallanes Other [facility] Other Start: 02-20-2023 Office outpatient vi sit 25 minutes Hannah Sona [facility] Start: 02-05-2023 End: 02-05-2023 ambulatory Hannah Sona Other [facility] Other Start: 02-05-2023 Telephone encounter Hannah Sona [facility] Start: 01-21-2023 End: 01-21-2023 ambulatory Hannah Magallanes Other [facility] Other Start: 01-21-2023 Telephone encounter Hannah Sona [employer] Start: 01-17-2023 End: 01-17-2023 ambulatory Hannah Magallanes Other [facility] Other Start: 01-17-2023 Office outpatient vi sit 15 minutes Hannah Sona [facility] Start: 12-24-2022 End: 12-24-2022 ambulatory Hannah Magallanes Other [facility] Other Start: 12-24-2022 Telephone encounter Hannah Sona [facility] Start: 12-03-2022 End: 12-03-2022 ambulatory Hannah Sona Other [facility] Other Start: 12-03-2022 Telephone encounter Hannah Sona [facility] Start: 11-27-2022 End: 11-27-2022 ambulatory Hannah Magallanes Other [facility] Other Start: 11-27-2022 Telephone encounter Hannah Magallanes [facility] Start: 11-26-2022 End: 11-26-2022 ambulatory Hannah Magallanes Other [facility] Other Start: 11-26-2022 Telephone encounter Hannah Magallanes [facility] Start: 11-24-2022 End: 11-25-[address] HANNAH MAGALLANES Facility:[facility] Start: 11-23-2022 End: 11-23-2022 ambulatory Hannah Magallanes Other [facility] Other Start: 11-23-2022 Office outpatient vi sit 15 minutes Hannah Magallanes [facility] Start: 11-05-2022 End: 11-05-2022 ambulatory Hannah Magallanes Other [facility] Other Start: 11-05-2022 Telephone encounter Hannah Magallanes [facility] Start: 10-03-2022 End: 10-03-2022 ambulatory aHnnah Magallanes Other [facility] Other Start: 10-03-2022 Telephone encounter Hannah Magallanes [facility] Start: 09-04-2022 End: 09-04-2022 ambulatory Hannah Magallanes Other [facility] Other Start: 09-04-2022 Office outpatient vi sit 25 minutes Hannah Magallanes [facility] Start: 07-26-[address] HANNAH MAGALLANES Facil ity:[facility] Start: 07-19-2022 End: 07-20-[address] WILFREDO ENGLE Facility:[facility] Start: 06-07-2022 End: 06-07-[address] HANNAH MAGALLANES Facility:[facility] Start: 03-15-2022 ambulatory KESHA TRUJILLO Facility:[facility] Start: 02-06-2022 End: 02-06-2022 ambulatory Kesha Trujillo Other [facility] Other Start: 02-06-2022 Office outpatient vi sit 25 minutes Kesha Trujillo [facility] Start: 02-02-2022 End: 02-03-2022 ambulatory KESHA TRUJILLO Facility:[facility] Start: 12-28-2021 End: 12-28-[address] HANNAH MAGALLANES Facility:[facility] Start: 12-12-2021 End: 12-13-2021 ambulatory KESHA TRUJILLO [facility] Other Start: 12-12-2021 Office outpatient ne w 30 minutes Kesha Trujillo [facility] [place] Start: 05-26-2021 Office outpatient vi sit 15 [...] [facility] [address] [address] Barbie Tapia DO [address] [place] [address] [facility] XR Pelvis and Hip - bilateral Views [facility] Immunizations Immunization Date Immunization Notes Care Provider Fa cility 06-02-2018 Influenza, injectabl e, Madin Kyleigh Canine Kidney, preservative free, quadrivalent Argentina Clinton PT Work Phone: [facility] 05-17-2017 influenza virus vaccine, split virus (incl. purified surface antigen) Hannah Magallanes Other [facility] [employer] Other 05-17-2017 influenza virus vaccine, unspecified formulation [facility] 05-16-2017 influenza, injectabl e, quadrivalent, preservative free Argentina Clinton PT Work Phone: [facility] 06-28-2016 influenza, injectabl e, quadrivalent, preservative free Argentinacurtis Clinton PT Work Phone: [facility] 06-28-2016 tetanus and diphther ia toxoids, adsorbed, preservative free, for adult use (5 Lf of tetanus toxoid and 2 Lf of diphtheria toxoid) Hannah Magallanes Other [facility] 05-25-2015 influenza, seasonal, injectable, preservative free Argentina Clinton PT Work Phone: [facility] 05-25-2015 tetanus and diphther ia toxoids, adsorbed, preservative free, for adult use (5 Lf of tetanus toxoid and 2 Lf of diphtheria toxoid) Hannah Magallanes Other [facility] 06-15-1999 pneumococcal conjuga te vaccine, 7 valent Argentina Clinton PT Work Phone: [facility] Payers Date Payer Category Payer Medicaid MEDICAID [facility] [id number] 2021-Present [phone] [address] [place] [address] Medicaid [id number] 2013 Medicare MEDICARE MEDICAR E PART B [id number] 2013-Present [address] [address] [place] [address] Medicare [id number] 1960 Unknown [id number] 1960 Unknown [id number] [id number] 1960 Unknown [id number] [id number] 1960 Unknown [id number] 2.16.840.1.238973.3.579.2.593 1960 Unknown [id number] 2.16.840.1.129458.3.579.2.593 1960 Unknown [id number] 2.16.840.1.691842.3.579.2.593 1960 Unknown [id number] 2.16.840.1.314909.3.579.2.593 1960 Unknown [id number] 2.16.840.1.252059.3.579.2.593 1960 Unknown [id number] 2.16.840.1.039496.3.579.2.727 1960 Unknown [id number] 2.16.840.1.258040.3.579.2.1259 1960 Unknown [id number] 2.16.840.1.468550.3.579.2.1259 1960 Unknown [id number] 2.16.840.1.827227.3.579.2.1259 1960 Unknown [id number] 2.16.840.1.544578.3.579.2.1259 1959 Medicaid [id number] [id number] 1959 Medicare [id number] Self-pay Self Pay [id number] Social History Date Type Detail Facility Start: 09-02-2023 Sex Assigned At [facility] Tobacco smoking status No Smokin g Status Entered [facility] Start: 03-27-2023 Tobacco smoking status ILIS Smokes tobacco daily [facility] Work Phone: History of tobacco use [facility] Start: 03-27-2023 End: 09-02-2023 Cigarettes smoked current (pack per day) - Reported 0.5 [facility] Start: 03-27-2023 Tobacco use and exposure Smokeless tobacco non-user [facility] Start: 09-02-2023 Alcohol intake Lifetime non-drinker (finding) [facility] Start: 03-27-2023 Alcohol Comment Caffine- Soda [facility] Start: 1960 Sex Assigned At Male [facility] Start: 08-21-2023 Gender identity Identifies as male gender (finding) [facility] Start: 08-21-2023 Sexual orientation Heterosexual (finding) [facility] Start: 02-06-2017 Tobacco smoking status NHIS Ex-smoker (finding) [facility] Medical Equipment Procedure Code Equipment Code Equipment Original Text Equi pment Identifier Dates Accu-Chek [employer]ix Lancet - Clinical Notes 05-26-2021 to 10-02-2023 Telephone Encounter - Maris Tavera - 10/02/2023 1:35 PM [facility] 1[facility]35 PM EST Note Date & Type Note Facility 10-02-2023 Telephone encounter Note Form atting of this note might be different from the original. No attempts to hear back; closing referral. [facility] 10-02-2023 Miscellaneous Notes Formattin g of this note might be different from the original. No attempts to hear back; closing referral. documented in this encounter [facility] 09-13-2023 Evaluation note Encounter Date Diagnosis Assessment Notes Aug, Chronic obstructive pulmonary disease, unspecified (ICD-10 - J44.9) Finish antibiotics and prednisone as prescribed. Denies pulmonary referral at this time. Hasn't smoked since 09/08 and declines chantix or patches. Aug, Current smoker (ICD-10 - F17.200) [facility] Other 01-23-2024 Evaluation note* Encounter Date Diagnosis Assessment Notes Treatment Notes Treatment Clinical Notes Aug, Lumbar radicular pain (ICD-10 - M54.16) [facility] Other 01-19-2024 Evaluation note* Encounter Date Diagnosis Assessment Notes Treatment Notes Treatment Clinical Notes Aug, Lumbar radicular pain (ICD-10 - M54.16) [facility] Other 12-26-2023 Evaluation note* Encounter Date Diagnosis Assessment Notes Treatment Notes Treatment Clinical Notes Jul, Type 2 diabetes mellitus with hyperglycemia, without long-term current use of insulin (ICD-10 - E11.65) [facility] Other 12-26-2023 Evaluation note* Encounter Date Diagnosis [...] T3s after shoulder pain has improved post-operatively. [facility] Other 12-04-2023 Evaluation note* Encounter Date Diagnosis Assessment Notes Treatment Notes Treatment Clinical Notes Jul, Type 2 diabetes mellitus with hyperglycemia, without long-term current use of insulin (ICD-10 - E11.65) [facility] Other 12-01-2023 Evaluation note* Encounter Date Diagnosis Assessment Notes Treatment Notes Treatment Clinical Notes Jul, Type 2 diabetes mellitus with hyperglycemia, without long-term current use of insulin (ICD-10 - E11.65) [facility] Other 11-30-2023 Evaluation note* Encounter Date Diagnosis Assessment Notes Treatment Notes Treatment Clinical Notes Jun, Labral tear of shoulder, right, subsequent encounter (ICD-10 - S43.431D) [facility] Other 11-14-2023 Evaluation note* Encounter Date Diagnosis [...] pain (ICD-10 - R07.9) r/o cardiac cause [facility] Other 11-07-2023 Evaluation note* Encounter Date Diagnosis [...] to decrease dose and possibly discontinue medication. [facility] Other 11-02-2023 Evaluation note* Encounter Date Diagnosis Assessment Notes Treatment Notes Treatment Clinical Notes Jun, Acute pain of right shoulder (ICD-10 - M25.511) [facility] Other 10-30-2023 Evaluation note* Encounter Date Diagnosis Assessment Notes Treatment Notes Treatment Clinical Notes May, Acute pain of right shoulder (ICD-10 - M25.511) [facility] Other 10-23-2023 Evaluation note* Encounter Date Diagnosis Assessment Notes Treatment Notes Treatment Clinical Notes May, Acute pain of right shoulder (ICD-10 - M25.511) [facility] Other 10-16-2023 Evaluation note* Encounter Date Diagnosis Assessment Notes Treatment Notes Treatment Clinical Notes May, Acute pain of right shoulder (ICD-10 - M25.511) [facility] Other 10-10-2023 Evaluation note* Encounter Date Diagnosis Assessment Notes Treatment Notes Treatment Clinical Notes May, Acute pain of right shoulder (ICD-10 - M25.511) MRI and surgery planning pending. Pt understands this is a controlled substance and to call in 1 week w update on treatment plan. May, Bronchitis (ICD-10 - J40) Finish antibiotic, rest, hydrate Steroids for wheezing. [facility] Other 10-04-2023 Evaluation note* Encounter Date Diagnosis Assessment Notes Treatment Notes Treatment Clinical Notes May, Acute pain of right shoulder (ICD-10 - M25.511) Reviewed [facility] and discussed short term plan of increase in pain medication. He is due for a refill of the T3s presently. Stop them, replace w norco. Pt understands weekly prescription and will need to d/c after anticipated surgery. [facility] Other 09-12-2023 Evaluation note* Encounter Date Diagnosis [...] office and the ER visit on 04/26 [facility] Other 07-05-2023 Evaluation note* Encounter Date Diagnosis [...] and will need less prn pain med. [facility] Other 06-01-2023 Evaluation note* Encounter Date Diagnosis [...] left shoulder (ICD-10 - M25.512) as above. [facility] Other 04-17-2023 Evaluation note* Encounter Date Diagnosis Assessment Notes Treatment Notes Treatment Clinical Notes Nov, Bronchitis (ICD-10 - J40) [facility] Other 04-11-2023 Evaluation note* Encounter Date Diagnosis Assessment Notes Treatment Notes Treatment Clinical Notes Nov, Disc degeneration, lumbar (ICD-10 - M51.36) Nov, Lumbar radicular pain (ICD-10 - M54.16) [facility] Other 04-07-2023 Evaluation note* Encounter Date Diagnosis [...] quit smoking. Pt verbalizes understanding and agreement. [facility] Other 02-15-2023 Evaluation note* Encounter Date Diagnosis Assessment Notes Treatment Notes Treatment Clinical Notes Sep, Lumbar radicular pain (ICD-10 - M54.16) [facility] Other 01-17-2023 Evaluation note* Encounter Date Diagnosis [...] is outlined on the test result page. [facility] Other 10-20-2022 NoteIndication: Calculus in kidney. Comparison: [...] Electronically authenticated by: JOHN PINTO Date: 2022-06-07 20:07[facility]06-21-2022 Evaluation note* Encounter Date Diagnosis Assessment Notes [...] of infection, hardware pullout, cuff repair failure, penitentiary pain and stiffness are well known problems [...] of repair, infection and wound healing delays. [facility] Other 04-26-2022 NotePROCEDURE: XR SHOULDER LT 2V or > COMPARISON: None. HISTORY: Pain of left shoulder joint FINDINGS: BONES:No acute fracture or dislocation. 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 No visible soft tissue swelling. EFFUSION:None visible. OTHER: Negative. IMPRESSION: Mild osteoarthritis Electronically authenticated by: BARBIE MEMBRENO Date: 2021-12-12 15:[address] [place], [place] [id number] Evaluation note* Encounter Date Diagnosis Assessment Notes [...] pain of left shoulder (ICD-10 - M25.512) [facility] Other 10-08-2021 Evaluation note* Encounter Date Diagnosis [...] as needed for cough. Advised patient that Norlina contains antihistamine and cough suppressant and to be cautious using other OTC cold medications. Patient to follow up with PCP if symptoms do not improve. Immediate eval if SOB, difficulty breathing, chest pain, dizziness, or other concerning symptoms. Patient verbalizes understanding and is agreeable to treatment plan [facility] Other Evaluation + Plan note No data available for this section [facility] noteNo InformationN[facility] Other Evaluation note* Diagnosis Onset Date Resolution Status Arthralgia acute Lumbar pain acute Type II diabetes mellitus ac comanche [facility] Work Phone: Evaluation note* Diagnosis Onset Date Resolution Status Arthralgia acute Lumbar pain acute Type II diabetes mellitus ac [place] Bilateral hip pain acute [facility] Work Phone: History general Narrative - Reported* Type Description Date Medical History Asthma Medical History skin cancer-lip Surgical History Left lung biopsy 1977 Surgical History L4 and L5 disc fusion 1984 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 Surgical History carpal tunnel release 2016 Surgical History tonsillectomy Hospitalization History 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 Hospitalization History pneumonia [facility] Other Hospital Discharge instructions No data available for this section [facility] No data available for this section [facility] Summary Purpose Family History Relationship Condition Age [...] 1 Epigastric abdominal pain (R10.13) Referral Organization [facility] Referring Provider First Name Hannah Referring Provider Last Name Sona Referring Provider Specialty [facility] [employer] Referred Organization [facility] Referred Provider Sai Martinez Referred Address ,[place], [place],[address] Referred Provider Specialty Surgery Referral Priority Routine General Notes Es Camilo 11:38:02 AM >received today, attachments made, notes locked, referral faxed Reason 01/28/23 Access Or tho - B shoulder pain L>R - hopes for injections. Diagnosis 1 Pain in right should er (M25.511) Referral Organization [facility] Referring Provider First Name Hannah Referring Provider Last Name Sona Referring Provider [facility] [employer] Referred Organization [facility] Referred Provider Barbie Tapia Referred Address ,[place], [place],[address] Referred Provider Specialty Orthopaedic Surgery Referral Priority [...] in right should er (M25.511) Referral Organization [facility] Referring Provider First Name Hannah Referring Provider Last Name Sona Referring Provider Specialty [facility] Referred Organization [facility] Referred Provider Barbie Tapia Referred Address ,[place], [place],[address] Referred Provider Specialty Orthopaedic Surgery Referral Priority [...] section and content) DATE CREATED AUTHOR 02/10/2022 [facility] DATE CREATED AUTHOR AUTHOR'S ORGANIZ ATION 12/04/2022 [facility] DATE CREATED AUTHOR AUTHOR'S ORGANIZ ATION 06/01/2023 [facility] DATE CREATED AUTHOR AUTHOR'S ORGANIZ ATION 10/07/2023 [facility] Patient Care team [...] Team Status: Inactive Member Role Status Gloria aMgallanes MD Primary Care Provide r, Attending Provider Active Start: December 05, 2023 End: December 05, 2023 Team Status: Inactive Member Role Status Gloria Magallanes MD Primary Care Provide r, Attending Provider Active Start: December 17, 2023 End: December 17, 2023 Glass Glazier Relationship Specialty Start Date End Date Hannah Magallanes MD [address] [place] [address] PCP - General Family Medicine 01/23/23 Team [...] BE BASED ON THE PRIMARY CLINICAL RECORDS. [facility]. provides no warranty or guarantee of the accuracy or completeness of information in this document.
== END 2024-01-02 07:48 | disposition home or self-care (01) ==
PROVIDERS: PCP Family Medicine; Visit Provider Nurse Practitioner
DX: M48.062 Spinal stenosis, lumbar region with neurogenic claudication (principal); M46.1 Sacroiliitis, not elsewhere classified; M16.0 Bilateral primary osteoarthritis of hip; M96.1 Postlaminectomy syndrome, not elsewhere classified; M25.551 Pain in right hip; M25.552 Pain in left hip; Z79.891 Long term (current) use of opiate analgesic; G89.4 Chronic pain syndrome
CPT/HCPCS: G0463

== ENCOUNTER 2024-01-20 08:23 | Day surgery (SDC) | payer MEDICARE, MEDICAID, SELFPAY ==
[2024-01-20 08:59] VITALS: BP 133/88; PULSE 76; TEMP 36.1; O2SAT 96
[2024-01-20 08:59] LABS: Glucometer 183 mg/dL (74-106)
[2024-01-20] MEDS: 0.9 % SODIUM CHLORIDE 10 ML SYRINGE - SALINE FLUSH INJ (09:30)
[2024-01-20] MEDS: BUPIVACAINE HCL 0.25% PF 25 MG/10 ML VIAL INJ (09:30)
[2024-01-20] MEDS: TRIAMCINOLONE ACETONIDE 40 MG/ML VIAL INJ (09:31)
[2024-01-20] MEDS: IOHEXOL 240 MG/ML - 10 ML VIAL INJ (09:31)
[2024-01-20] MEDS: LIDOCAINE HCL 2% PF 100 MG/5 ML VIAL INJ (09:32)
--- NOTE | 2024-01-20 09:33 | W.PM.PROCNOT ---
Date of procedure: 01/20/24 Pre-op diagnosis: Lumbar stenosis with neurogenic claudication Post-op diagnosis: same as pre-op Procedure: Procedure: Bilateral L4-5 transforaminal epidural steroid injection Medications: Bupivacaine 0.25% 2cc, lidocaine 2% 1cc, kenalog 80mg The patient was seen and examined in the preoperative holding area.? Informed consent was obtained and placed on the chart.? Patient was brought to the medical procedure unit and placed in the prone position where a timeout was completed verifying the correct patient, procedure site, position, and planned special equipment using sterile aseptic technique.? Under direct fluoroscopic visualization a 25-gauge Quincke tipped spinal needle was advanced at level left L4-5 to the designated neural foramen.? There was no evidence of vascular or adverse uptake. The above-mentioned injectate was then placed in a 1.5 mL aliquot preceded by negative aspiration.? The needle was removed. The same procedure, at the same level, was completed on the opposite side. ? Patient was taken to the postprocedural recovery area and monitored for an appropriate length of time before found suitable for discharge in the accompaniment of a responsible adult. Anesthesia: Local Surgeon: Zacarias iPke Pathology: none sent Condition: stable Disposition: no change
[2024-01-20 09:34] VITALS: BP 130/60; BP 132/56; PULSE 69; PULSE 72; O2SAT 100
== END 2024-01-20 09:37 | disposition home or self-care (01) ==
LOC: SURGOUT 08:24
PROVIDERS: PCP Family Medicine; Visit Provider Anesthesiology
DX: M48.062 Spinal stenosis, lumbar region with neurogenic claudication (principal); Z79.84 Long term (current) use of oral hypoglycemic drugs
CPT/HCPCS: 36415; 64483; 82948; Q9966

== ENCOUNTER 2024-02-03 07:42 | Day surgery (SDC) | payer MEDICARE, MEDICAID, SELFPAY ==
--- OUTSIDE RECORDS SUMMARY | 2024-02-03 07:52 | XMS_ITS | CCD ---
Author Organization 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 Name Role Phone Kesha Trujillo Unavailable Chepe Harriet Unavailable Hannah Magallanes Unavailable SONA, DR HANNAH Jovel Admitting Unavailable MAGALLANES, DR HANNAH Jovel Attending Unavailable MAGALLANES, DR HANNAH Jovel Primary Care Unavailable MAGALLANES, DR HANNAH Jovel Consulting Unavailable TAVERAS, RUBI Consulting Unavailable OLEXA, KESHA Admitting Unavailable OLEXA, KESHA Attending Unavailable MAGALLANES, DR HANNAH Jovel Primary Care Unavailable ELMER, DR BARBIE Goldberg Consulting Unavailable OLEXA, KESHA [...] MAGALLANES, DR HANNAH Jovel Primary Care Unavailable VANCE ., DR DESIR Admitting Unavailable VANCE ., DR DESIR Attending Unavailable HAY ., DR DESIR Consulting Unavailable MAGALLANES, DR HANNAH Jovel Primary Care Unavailable BREE, DR CARLOS Drummond Admitting Unavailable BREE, DR CARLOS Drummond Attending Unavailable BREE, DR CARLOS Drummond Consulting Unavailable MILLIE, YOVANNYSATimothy Consulting Unavailable HANNAH MAGALLANES Primary Care Physician Barbie Jesus Referring Unavailable Pocdoron, Barbie Tellez Attending Unavailable Pocdoron, Barbie Tellez Admitting Unavailable Hannah Magallanes MD Primary Care Provider [phone] POCDORON, BARBIE Tellez Attending Unavailable POCOSBARBIE Referring Unavailable POCOS, BARBIE Tellez Attending Unavailable POCOS, BARBIE Tellez Attending Unavailable Shahzad JACOB, Zacarias Miranda Attending Unavailable Allergies Allergy Classification Reported Allergen(s) Allergy Type Date of Onset Reaction(s) Facility (20 sources) Ibuprofen Drug Allergy [facility] [employer] Other (20 sources) olodaterol / tiotropium Drug Allergy shortness of breath [facility] [employer] Other (20 sources) CT Scan dye Propensity to adverse reactions [facility] [employer] Other (4 sources) Ibuprofen Drug Allergy 08-19-18 80 [facility] Repository (2 sources) Iodine (And Iodine Containting Drugs) Drug allergy (disorder) 09-07-19 16 [facility] Repository (1 source) NSAIDs Drug allergy (disorder) [facility] Repository (20 sources) fentaNYL Drug Allergy 12-05-19 24 Unknown, [facility] (4 sources) Ibuprofen Drug Allergy 01-15-20 15 [facility] (20 sources) Ofloxacin Drug Allergy 12-05-19 24 Unknown, [facility] (3 sources) zafirlukast Drug Allergy 01-15-20 15 Unknown [facility] [employer] Other (20 sources) Zafirlukast *ANTIASTHMATIC AND BRONCHODILATOR AGEN Propensity to adverse reactions Unknown [facility] [employer] Other (20 sources) Ibuprofen & Diet Manage Prod *ANALGESICS - ANTI-IN Propensity to adverse reactions Unknown [facility] [employer] Other (3 sources) Allergies Reconciled Propensity to adverse reactions Unknown [facility] [employer] Other (20 sources) Iodinated contrast media (substance) Drug allergy 06-03-20 19 Rash [facility] [employer] Other (3 sources) patient allergy list reviewed by nurse or physicia Propensity to adverse reactions 10-05-19 16 Comment:Done [place] [employer] Other (2 sources) olodaterol Drug Allergy 12-05-19 24 shortness of breath [facility] (2 sources) tiotropium Drug Allergy 12-05-19 24 shortness of breath [facility] (2 sources) Iodinated Contrast Media Allergy to substance 12-05-19 [facility] (2 sources) Ibuprofen & Diet Manage Prod * Allergy to substance 12-04-19 [facility] (2 sources) Zafirlukast *ANTIASTHMATIC AND Allergy to substance 12-04-19 [facility] Medications Current Medications Medication Drug Class(es) [...] as needed Orally every 6 hrs Active [id number] 200 actuat albuterol 0.09 mg/actuat metered dose [...] Start: 07-19-2023 take 2 tablets by mo [facility] in the morning glipiZIDE-metFORMIN (Metaglip) 5-500 MG tablet Take 2 tablets by mouth in the morning and 2 tablets before bedtime. 0 07/19/2023 Active take 2 tablets by mo [facility] twice daily glipiZIDE-metFORMIN HCl 5-500 MG [...] Active Start: 11-23-2022 take 2 tablets by [facility] every twenty-four hours predniSONE 20 MG 2 [...] days May, Active Start: 2023 HYDROcodone-ac etaminophen ([place]) 10-325 MG tablet Start: 2023 take 1 [...] 30 mg oral tablet (5 sources) Uncompetitive J-oyiell-L-aspartate Receptor Antagonist, Sigma-1 Agonist Start: 05-26-2021 take 1 tablet by mouth every eight hours [place] DMT 30-30 MG 1 tablet Orally every [...] 10-05-2015 Episodic Other aftercare (1 source) Other shelter (current) drug therapy; Translations: [OTH HALFWAY CURRENT DRUG THERAPY] Onset: 12-29-2021 Episodic Other [...] Basophils (Bld) [#/Vol] 0.1 10 3/uL 0.0-0.1 [facility] Basophils/100 WBC Auto (Bld) on 12-05-2023 Basophils/100 WBC (Bld) 0.9 % 0.2-2.0 [facility] Eosinophils/100 WBC Auto (Bl d)on 12-05-2023 Eosinophils/100 WBC (Bld) 2.7 % 0.9-7.0 [facility] Erythrocyte distribution wid th Auto (RBC) [Ratio]on 12-05-2023 Erythrocyte distribution width (RBC) [Ratio] 13.1 % 11.0-15.0 [facility] Estimated glomerular filtrat ion rate (GFR) non- Americanon 12-05-2023 GFR/1.73 sq M.predicted among non-blacks MDRD (S/P/Bld) [Vol rate/Area] mL/min/{1.73_m2} >=60 [facility] Glucose mean value [Mass/vol ume] in Blood Estimated from glycated hemoglobinon 12-05-2023 Average glucose Estimated from glycated hemoglobin (Bld) [Mass/Vol] 171 mg/dL [facility] Hematocrit Auto (Bld) [Volum e fraction]on 12-05-2023 Hematocrit (Bld) [Volume fraction] 48.9 % 42.0-54.0 [facility] Hemoglobin [Mass/volume] in Bloodon 12-05-2023 Hemoglobin (Bld) [Mass/Vol] 16.0 g/dL 14.0-18.0 [facility] Laboratory - Chemistry and C hemistry - challengeon 12-05-2023 Calcium [Mass/Vol] 9.7 mg/dL 8.5-10.[address] [facility] Chloride [Moles/Vol] 102 mmol/L 98-107 [facility] CO2 [Moles/Vol] 27.6 mmol/L 21.0-32.0 [facility] Creatinine [Mass/Vol] 1.01 mg/dL 0.70-1.30 [facility] GFR/1.73 sq M.predicted MDRD (S/P/Bld) [Vol rate/Area] mL/min/{1.73_m2} >=60 [facility] Glucose [Mass/Vol] 156 mg/dL 74-[address] [facility] Potassium [Moles/Vol] 4.4 mmol/L 3.5-5.1 [facility] Sodium [Moles/Vol] 139 mmol/L 136-[address] [facility] Urea nitrogen [Mass/Vol] 13.0 mg/dL 7.0-18.0 [facility] Urea nitrogen/Creatinine [Mass ratio] 12.9 mg/mg [facility] Laboratory - Hematology and Cell countson 12-05-2023 ESR (Bld) [Velocity] 17 mm/h <=20 [facility] HbA1c (Bld) [Mass fraction] 7.6 % 4.5-6.2 [facility] Comment on above: ADA RECOMMENDED LIMI T 4.0 - 6.0ADA THERAPEUTIC TARGET < 7.0ACTION SUGGESTED> 7.0 Immature granulocytes/100 WBC (Bld) 0.4 % 0.0-0.5 [facility] Leukocytes [#/volume] correc jeanc laude for nucleated erythrocytes in Blood by Automated counon 12-05-2023 WBC corrected for nucl RBC Auto (Bld) [#/Vol] 7.7 10 3/uL 4.0-11.0 [facility] Lymphocytes Auto (Bld) [#/Vo l]on 12-05-2023 Lymphocytes (Bld) [#/Vol] 2.4 10 3/uL 1.2-3.8 [facility] Lymphocytes/100 WBC Auto (Bl d)on 12-05-2023 Lymphocytes/100 WBC (Bld) 31.2 % 20.5-60.0 [facility] MCH Auto (RBC) [Entitic mass ]on 12-05-2023 MCH (RBC) [Entitic mass] 28.5 pg 25.9-34.0 [facility] MCHC Auto (RBC) [Mass/Vol]on 12-05-2023 MCHC (RBC) [Mass/Vol] 32.7 g/dL 29.9-35.2 [facility] MCV Auto (RBC) [Entitic vol] on 12-05-2023 MCV (RBC) [Entitic vol] 87.0 fL 80.0-94.0 [facility] Monocytes Auto (Bld) [#/Vol] on 12-05-2023 Monocytes (Bld) [#/Vol] 0.7 10 3/uL 0.3-0.8 [facility] Monocytes/100 WBC Auto (Bld) on 12-05-2023 Monocytes/100 WBC (Bld) 9.5 % 1.7-12.0 [facility] Neutrophils Auto (Bld) [#/Vo l]on 12-05-2023 Neutrophils (Bld) [#/Vol] 4.2 10 3/uL 1.4-6.5 [facility] Neutrophils/100 WBC Auto (Bl d)on 12-05-2023 Neutrophils/100 WBC (Bld) 55.3 % 43.0-75.0 [facility] No Panel Informationon 12-04 Eosinophils # (Auto) 0.2 10 3/uL 0.0-0.7 [facility] Immature Granulocyte # (Auto) 0.03 10 3/uL 0.00-0.03 [facility] Platelet mean volume Auto (B ld) [Entitic vol]on 12-05-2023 Platelet mean volume (Bld) [Entitic vol] 8.6 fL 9.5-13.5 [facility] Platelets Auto (Bld) [#/Vol] on 12-05-2023 Platelets (Bld) [#/Vol] 330 10 3/uL 150-450 [facility] RBC Auto (Bld) [#/Vol]on RBC (Bld) [#/Vol] 5.62 10 6/uL 4.70-6.10 [facility] Serum or plasma anion gap de terminationon 12-05-2023 Anion gap [Moles/Vol] 13.8 mmol/L [facility] Magnesiumon 07-02-2023 Magnesium [Mass/Vol] 2.8175576 mg/dL Normal 1.8-2.4 mg/dL [facility] Other Magnesium see note [facility] Other MRI Shoulder w/o Contrast [facility] 05-31-2023 MRI Shoulder w/o Contrast Right [...] TAMARA Technologist: STELLA Technical Comments None Normal [facility] Consent for Treatmenton 05-19 Consent for Treatment [id number] .00TIFF Normal [facility] RAD - MRI Screening Formon 1 RAD - MRI Screening Form [id number]. 00TIFF Normal [facility] Physician Orderon 05-09-2023 Physician Order [id number]# 1.00CD:127 Normal [facility] XR CHEST 2 Von 11-24-2022 XR [...] RUBI TAVERAS Date: 2022-11-24 17:17 Normal [facility] CT LUNG CANCER SCREENINGon 1 09-20-2021 [...] YEISON NAVAS Date: 2022-07-20 07:18 Normal [facility] CBC AUTO DIFFon 06-07-2022 BASO # 0.1 103/ul Normal 0.0-0.[address] [facility] Comment on above: Performed By: #### C BC #### [facility] [address] [place] [address] Dr. Eran Chacon Basophils/100 WBC (Bld) 0.6 % Normal 0.2-2.[address] [facility] Comment on above: Performed By: #### C BC #### [facility] [address] [address] [address] Eran Chacon EO # 0.3 103/ul Normal 0.0-0.[address] [facility] Comment on above: Performed By: #### C BC #### [facility] [address] [place] [address] Dr. Eran Chacon Eosinophils/100 WBC (Bld) 3.3 % Normal 0.9-7.[address] [facility] Comment on above: Performed By: #### C BC #### [facility] [address] [place] [address] Dr. Eran Chacon Erythrocyte distribution width (RBC) [Ratio] 12.9 % Normal 11.0-15.[address] [facility] Comment on above: Performed By: #### C BC #### [facility] [address] [place] [address] Dr. Eran Chacon Hematocrit (Bld) [Volume fraction] 47.7 % Normal 42.0-54.[address] [facility] Comment on above: Performed By: #### C BC #### [facility] [address] [place] [address] Dr. Eran Chacon Hemoglobin (Bld) [Mass/Vol] 15.9 g/dL Normal 14.0-18.[address] [facility] Comment on above: Performed By: #### C BC #### [facility] [address] [place] [address] Dr. Eran Chacon IG # 0.02 10e3/ul Normal 0.00-0.[address] [facility] Comment on above: Performed By: #### C BC #### [facility] [address] [place] [address] Dr. Eran Chacon IG % 0.2 % Normal 0.0-0.[address] [facility] Comment on above: Performed By: #### C BC #### [facility] [address] [place] [address] Dr. Eran Chacon LYMPH # 3.4 103/ul Normal 1.2-3.[address] [facility] Comment on above: Performed By: #### C BC #### [facility] [address] [place] [address] Dr. Eran Chacon Lymphocytes/100 WBC (Bld) 34.5 % Normal 20.5-60.[address] [facility] Comment on above: Performed By: #### C BC #### [facility] [address] [place] [address] Dr. Eran Chacon MANUAL DIFF REQ NO Normal [facility] Comment on above: Performed By: #### C BC #### [facility] [address] [address] [address] Eran Chacon MCH (RBC) [Entitic mass] 29.6 pg Normal 25.9-34.[address] [facility] Comment on above: Performed By: #### C BC #### [facility] [address] [address] [address] Eran Chacon MCHC (RBC) [Mass/Vol] 33.3 g/dL Normal 29.9-35.[address] [facility] Comment on above: Performed By: #### C BC #### [facility] [address] [address] [address] Eran Chacon MCV (RBC) [Entitic vol] 88.8 fL Normal 80.0-94.[address] [facility] Comment on above: Performed By: #### C BC #### [facility] [address] [place] [address] Dr. Eran Chacon MONO # 0.9 103/ul Critically high 0.3-0.8 [facility] Comment on above: Performed By: #### C BC #### [facility] [address] [address] [address] Eran Chacon Monocytes/100 WBC (Bld) 9.3 % Normal 1.7-12.[address] [facility] Comment on above: Performed By: #### C BC #### [facility] [address] [place] [address] Dr. Eran Chacon NEUT # 5.2 103/ul Normal 1.4-6.5 [facility] Comment on above: Performed By: #### C BC #### [facility] [address] [place] [address] Dr. Eran Chacon Neutrophils/100 WBC (Bld) 52.1 % Normal 43.0-75.0 [facility] Comment on above: Performed By: #### C BC #### [facility] [address] [place] [address] Dr. Eran Chacon Platelet mean volume (Bld) [Entitic vol] 8.8 fL Critically low 9.5-13.5 [facility] Comment on above: Performed By: #### C BC #### [facility] [address] [place] [address] Dr. Eran Chacon PLT 287 103/ul Normal 150-[address] [facility] Comment on above: Performed By: #### C BC #### [facility] [address] [place] [address] Dr. Eran Chacon RBC 5.37 106/ul Normal 4.70-6.10 [facility] Comment on above: Performed By: #### C BC #### [facility] [address] [place] [address] Dr. Eran Chacon WBC 9.9 103/ul Normal 4.0-11.[address] [facility] Comment on above: Performed By: #### C BC #### [facility] [address] [place] [address] Dr. Eran Chacon ER URINE PROFILEon 2 Bilirubin Ql (U) Negative Normal NEGATIVE [facility] Comment on above: Performed By: #### BISHNU BATESRO #### [facility] [address] [place] [address] Dr. Eran Chacon Clarity (U) CLEAR Normal CLEAR [facility] Comment on above: Performed By: #### BISHNU BATESRO #### [facility] [address] [place] [address] Dr. Eran Chacon Color (U) YELLOW Normal YELLOW [facility] Comment on above: Performed By: #### BISHNU BATESRO #### [facility] [address] [place] [address] Dr. Eran GATES A micrscopic examination will be performed if indicated. Normal [facility] Comment on above: Performed By: #### BISHNU BATESRO #### [facility] [address] [place] [address] Dr. Eran Chacon Glucose Ql (U) 500 mg/dl Abnormal NEGATIVE [facility] Comment on above: Performed By: #### BISHNU BATESRO #### [facility] [address] [place] [address] Dr. Eran Chacon Hemoglobin Ql (U) TRACE-INTACT Abnormal NEGATIVE [facility] Comment on above: Performed By: #### Med SHER UMICRO #### [facility] [address] [place] [address] Dr. Eran Chacon Ketones Ql (U) Negative Normal NEGATIVE [facility] Comment on above: Performed By: #### Med SHER UMICRO #### [facility] [address] [place] [address] Dr. Eran Chacon LEUKOCYTES Negative Normal NEGATIVE [facility] Comment on above: Performed By: #### Med SHER UMICRO #### [facility] [address] [place] [address] Dr. Eran Chacon Nitrite Ql (U) Negative Normal NEGATIVE [facility] Comment on above: Performed By: #### Med HSER UMICRO #### [facility] [address] [place] [address] Dr. Eran Chacon pH (U) 6.0 [pH] Normal 5-[address] [facility] Comment on above: Performed By: #### Med SHER UMICRO #### [facility] [address] [place] [address] Dr. Eran Chacon SPEC GRAVITY 1.025 Normal 1.005-<=1.025 [facility] Comment on above: Performed By: #### Med SHER UMICRO #### [facility] [address] [place] [address] Dr. Eran Chacon UA PROTEIN Negative Normal NEGATIVE/ TRACE [facility] Comment on above: Performed By: #### Med SHER UMICRO #### [facility] [address] [place] [address] Dr. Eran Chacon UR MICRO IND INDICATED Normal [facility] Comment on above: Performed By: #### Med SHER UMICRO #### [facility] [address] [place] [address] Dr. Eran Chacon Urobilinogen Qn (U) 0.2 {Aureliano'U}/dL Normal 0.2 - 1. [address] [facility] Comment on above: Performed By: #### E HANNA SHER #### [facility] [address] [place] [address] Dr. Eran Chacon PROF 14(COMP METB)on 06-07- 022 Albumin [Mass/Vol] 4.0 g/dL Normal 3.4-5.0 [facility] Comment on above: Performed By: #### C MP #### [facility] [address] [place] [address] Dr. Eran Chacon Albumin/Globulin [Mass ratio] 1.2 {ratio} Normal [facility] Comment on above: Performed By: #### C MP #### [facility] [address] [place] [address] Dr. Eran Chacon ALP [Catalytic activity/Vol] 104 U/L Normal 46-[address] [facility] Comment on above: Performed By: #### C MP #### [facility] [address] [place] [address] Dr. Eran Chacon ALT [Catalytic activity/Vol] 28 U/L Normal 16-[address] [facility] Comment on above: Performed By: #### C MP #### [facility] [address] [place] [address] Dr. Eran Chacon Anion gap [Moles/Vol] 7.2 mmol/L Normal [facility] Comment on above: Performed By: #### C MP #### [facility] [address] [place] [address] Dr. Eran Chacon AST [Catalytic activity/Vol] 14 U/L Critically low 15-37 [facility] Comment on above: Performed By: #### C MP #### [facility] [address] [place] [address] Dr. Eran Chacon Bilirubin [Mass/Vol] 0.4 mg/dL Normal 0.2-1.[address] [facility] Comment on above: Performed By: #### C MP #### [facility] [address] [place] [address] Dr. Eran Chacon Calcium [Mass/Vol] 9.0 mg/dL Normal 8.5-10.1 [facility] Comment on above: Performed By: #### C MP #### [facility] [address] [address] [address] Eran Chacon Chloride [Moles/Vol] 103 mmol/L Normal 98-[address] [facility] Comment on above: Performed By: #### C MP #### [facility] [address] [address] [address] Eran Chacon CO2 [Moles/Vol] 30.0 mmol/L Normal 21.0-32.0 [facility] Comment on above: Performed By: #### C MP #### [facility] [address] [address] [address] Eran Chacon Creatinine [Mass/Vol] 0.85 mg/dL Normal 0.70-1.[address] [facility] Comment on above: Performed By: #### C MP #### [facility] [address] [place] [address] Dr. Eran Chacon EGFR-AF LIBYAN >60 Normal >=60 [facility] Comment on above: Performed By: #### C MP #### [facility] [address] [place] [address] Dr. Eran Chacon EGFR-NON AF LIBYAN >60 Normal >=[address] [facility] Comment on above: Performed By: #### C MP #### [facility] [address] [address] [address] Eran Chacon Globulin (S) [Mass/Vol] 3.3 g/dL Normal [facility] Comment on above: Performed By: #### C MP #### [facility] [address] [address] [address] Eran Chacon Glucose [Mass/Vol] 165 mg/dL Critically high 74-106 [facility] Comment on above: Performed By: #### C MP #### [facility] [address] [address] [address] Eran Chacon Potassium [Moles/Vol] 4.2 mmol/L Normal 3.5-5.[address] [facility] Comment on above: Performed By: #### C MP #### [facility] [address] [place] [address] Dr. Eran Chacon Protein [Mass/Vol] 7.3 g/dL Normal 6.4-8.2 [facility] Comment on above: Performed By: #### C MP #### [facility] [address] [place] [address] Dr. Eran Chacon Sodium [Moles/Vol] 136 mmol/L Normal 136-145 [facility] Comment on above: Performed By: #### C MP #### [facility] [address] [place] [address] Dr. Eran Chacon Urea nitrogen [Mass/Vol] 10.0 mg/dL Normal 7.0-18.0 [facility] Comment on above: Performed By: #### C MP #### [facility] [address] [place] [address] Dr. Eran Chacon Urea nitrogen/Creatinine [Mass ratio] 11.8 mg/mg Normal [facility] Comment on above: Performed By: #### C MP #### [facility] [address] [place] [address] Dr. Eran Chacon URINE MICROSCOPIC ONLYon BACTERIA NONE SEEN Normal NONE SEEN [facility] Comment on above: Performed By: #### BISHNU BATESRO #### [facility] [facility] [address] [place] [address] Dr. Eran Chacon Bacteria identified Cx Nom (U) NOT INDICATED Normal [facility] Comment on above: Performed By: #### Med SHER UMICRO #### [facility] [address] [place] [address] Dr. Eran Chacon CAST NONE SEEN Normal NONE SEEN [facility] Comment on above: Performed By: #### Med SHER UMICRO #### [facility] [address] [place] [address] Dr. Eran Chacon Crystals LM Nom (Urine sed) NONE SEEN Normal NONE SEEN [facility] Comment on above: Performed By: #### Med SHER UMICRO #### [facility] [address] [place] [address] Dr. Eran Chacon Epithelial cells LM Ql (Urine sed) RARE Normal NONE SEEN /RARE [facility] Comment on above: Performed By: #### E RUR, UMICRO #### [facility] [address] [address] [address] Eran Chacon MUCOUS NONE SEEN Normal NONE SEEN [facility] Comment on above: Performed By: #### E RUR, UMICRO #### [facility] [address] [address] [address] Eran Chacon RBC 0-2 Normal 0-2 [facility] Comment on above: Performed By: #### E RUR, UMICRO #### [facility] [address] [address] [address] Eran Chacon WBC 2-5 Abnormal NONE SEEN [facility] Comment on above: Performed By: #### E RUR, UMICRO #### [facility] [address] [address] [address] Eran Chacon MRI SHOULDER LT WO [...] by: YEISON NAVAS Date: 2022-02-02 17:[address] [facility] XR shoulder LT min 2V*on XR shoulder LT min 2V* [facility] [address] [place] [address] XRay Report Signed Patient: Nicholas Ziegler MR#: [id number] : 1960 Acct:[id number] Age/Sex: 61 / M ADM Date: 01/25/22 Loc: [facility] Room: Type: [facility] Attending Dr: Kesha Trujillo MD Ordering Provider: [...] Otilia Nunez M.D.01/25/2022 11:41 AM Dictation Location: [place] [address] Transcribed By: [facility] 01/25/22 1141 Dictated By: Otilia Nunez MD 01/25/22 1139 Signed By: 01/25/22 1141 Normal [facility] Vital Signs Date Time Vital Sign Value Performing Clinician Facility 12-17-2023 08:54-0400 Body height 175.26 cm [facility] 12-17-2023 08:54-0400 Body mass index (BMI) [Ratio] 35.2 kg/m2 [facility] 12-17-2023 08:54-0400 Body weight 108.4 kg [facility] 12-17-2023 08:54-0400 Diastolic blood pressure 76 mm[Hg] [facility] 12-17-2023 08:54-0400 Heart rate 76 /min [facility] 12-17-2023 08:54-0400 Systolic blood pressure 154 mm[Hg] [facility] 12-05-2023 08:52-0400 Body height 175.26 cm [facility] 12-05-2023 08:52-0400 Body mass index (BMI) [Ratio] 35 kg/m2 [facility] 12-05-2023 08:52-0400 Body weight 107.67 kg [facility] 12-05-2023 08:52-0400 Diastolic blood pressure 78 mm[Hg] [facility] 12-05-2023 08:52-0400 Heart rate 69 /min [facility] 12-05-2023 08:52-0400 Systolic blood pressure 147 mm[Hg] [facility] 09-13-2023 13:30-0500 Body height 175.26 cm Hannah Magallanes Other [facility] 09-13-2023 13:30-0500 Body mass index (BMI) [Ratio] 33.22 kg/m2 Hannah Magallanes Other [facility] Other 09-13-2023 13:30-0500 Body temperature 98.4 [degF] Hannah Magallanes Other [facility] Other 09-13-2023 13:30-0500 Body weight 102.06 kg Hannah Magallanes Other [facility] Other 09-13-2023 13:30-0500 Body weight 102.05 kg [facility] 09-13-2023 13:30-0500 Diastolic blood pressure 80 mm[Hg] Hannah Magallanes Other [facility] 09-13-2023 13:30-0500 SaO2% (BldA) [Mass fraction] 93 % Hannah Magallanes Other [facility] Other 09-13-2023 13:30-0500 Systolic blood pressure 118 mm[Hg] Hannah Magallanes Other [facility] 08-13-2023 10:30-0500 Body height 175.26 cm Hannah Magallanes Other [facility] Other 08-13-2023 10:30-0500 Body mass index (BMI) [Ratio] 33.9 kg/m2 Hannah Magallanes Other [facility] Other 08-13-2023 10:30-0500 Body weight 104.15 kg Hannah Magallanes Other [facility] Other 08-13-2023 10:30-0500 Diastolic blood pressure 78 mm[Hg] Hannah Magallanes Other [facility] Other 08-13-2023 10:30-0500 Systolic blood pressure 124 mm[Hg] Hannah Magallanes Other [facility] Other 06-25-2023 08:45-0500 Body height 175.26 cm Hannah Magallanes Other [facility] Other 06-25-2023 08:45-0500 Body mass index (BMI) [Ratio] 33.37 kg/m2 Hannah Magallanes Other [facility] Other 06-25-2023 08:45-0500 Body temperature 96.5 [degF] Hannah Magallanes Other [facility] Other 06-25-2023 08:45-0500 Body weight 102.51 kg Hannah Magallanes Other [facility] Other 06-25-2023 08:45-0500 Diastolic blood pressure 85 mm[Hg] Hannah Magallanes Other [facility] Other 06-25-2023 08:45-0500 Systolic blood pressure 149 mm[Hg] Hannah Magallanes Other [facility] Other 05-28-2023 10:45-0400 Body height 175.26 cm Hannah Magallanes Other [facility] Other 05-28-2023 10:45-0400 Body mass index (BMI) [Ratio] 33.52 kg/m2 Hannah Magallanes Other [facility] Other 05-28-2023 10:45-0400 Body weight 102.97 kg Hannah Magallanes Other [facility] Other 05-28-2023 10:45-0400 Diastolic blood pressure 82 mm[Hg] Hannah Magallanes Other [facility] Other 05-28-2023 10:45-0400 Systolic blood pressure 147 mm[Hg] Hannah Magallanes Other [facility] Other 2023 08:45-0400 Body height 175.26 cm Hannah Magallanes Other [facility] Other 2023 08:45-0400 Body mass index (BMI) [Ratio] 33.52 kg/m2 Hannah Magallanes Other [facility] Other 2023 08:45-0400 Body weight 102.97 kg Hannah Magallanes Other [facility] Other 2023 08:45-0400 Diastolic blood pressure 85 mm[Hg] Hannah Magallanes Other [facility] Other 2023 08:45-0400 Systolic blood pressure 156 mm[Hg] Hannah Magalalnes Other [facility] Other 04-30-2023 09:45-0400 Body height 175.26 cm Hannah Magallanes Other [facility] Other 04-30-2023 09:45-0400 Body mass index (BMI) [Ratio] 34.32 kg/m2 Hannah Magallanes Other [facility] Other 04-30-2023 09:45-0400 Body temperature 96.2 [degF] Hannah Magallanes Other [facility] Other 04-30-2023 09:45-0400 Body weight 105.42 kg Hannah Magallanes Other [facility] Other 04-30-2023 09:45-0400 Diastolic blood pressure 78 mm[Hg] Hannah Magallanes Other [facility] Other 04-30-2023 09:45-0400 Respiratory rate 16 /min Hannah Magallanes Other [facility] Other 04-30-2023 09:45-0400 Systolic blood pressure 146 mm[Hg] Hannah Magallanes Other [facility] Other 02-20-2023 09:15-0400 Body height 175.26 cm Hannah Magallanes Other [facility] Other 02-20-2023 09:15-0400 Body mass index (BMI) [Ratio] 33.46 kg/m2 Hannah Magallanes Other [facility] Other 02-20-2023 09:15-0400 Body weight 102.79 kg Hannah Magallanes Other [facility] Other 02-20-2023 09:15-0400 Diastolic blood pressure 77 mm[Hg] Hannah Magallanes Other [facility] Other 02-20-2023 09:15-0400 Systolic blood pressure 131 mm[Hg] Hannah Magallanes Other [facility] Other 01-17-2023 08:45-0400 Body height 175.26 cm Hananh Magallanes Other [facility] Other 01-17-2023 08:45-0400 Body mass index (BMI) [Ratio] 33.37 kg/m2 Hannah Magallanes Other [facility] Other 01-17-2023 08:45-0400 Body weight 102.51 kg Hannah Magallanes Other [facility] Other 01-17-2023 08:45-0400 Diastolic blood pressure 79 mm[Hg] Hannah Magallanes Other [facility] Other 01-17-2023 08:45-0400 Systolic blood pressure 128 mm[Hg] Hannah Magallanes Other [facility] Other 11-23-2022 09:30-0400 Body height 175.26 cm Hannah Magallanes Other [facility] Other 11-23-2022 09:30-0400 Body mass index (BMI) [Ratio] 33.96 kg/m2 Hannah Magallanes Other [facility] Other 11-23-2022 09:30-0400 Body weight 104.33 kg Hannah Magallanes Other [facility] Other 11-23-2022 09:30-0400 Diastolic blood pressure 72 mm[Hg] Hannah Magallanes Other [facility] Other 11-23-2022 09:30-0400 Systolic blood pressure 122 mm[Hg] Hannah Magallanes Other [facility] Other 09-04-2022 11:30-0500 Body height 175.26 cm Hannah Magallanes Other [facility] Other 09-04-2022 11:30-0500 Body mass index (BMI) [Ratio] 33.52 kg/m2 Hannah Magallanes Other [facility] Other 09-04-2022 11:30-0500 Body weight 102.97 kg Hannah Magallanes Other [facility] Other 09-04-2022 11:30-0500 Diastolic blood pressure 80 mm[Hg] Hannah Magallanes Other [facility] Other 09-04-2022 11:30-0500 SaO2% (BldA) [Mass fraction] 95 % Hannah Magallanes Other [facility] Other 09-04-2022 11:30-0500 Systolic blood pressure 122 mm[Hg] Hannah Magallanes Other [facility] Other 02-06-2022 12:45-0400 Body height 175.26 cm Kesha Olexa Other [facility] Other 02-06-2022 12:45-0400 Body mass index (BMI) [Ratio] 31.01 kg/m2 Kesha Olexa Other [facility] Other 02-06-2022 12:45-0400 Body weight 95.26 kg Kesha Olexa Other [facility] Other 05-26-2021 13:15-0400 Body height 175.26 cm Harriet Ginty Other [facility] Other 05-26-2021 13:15-0400 Body mass index (BMI) [Ratio] 31.01 kg/m2 Harriet Ginty Other [facility] Other 05-26-2021 13:15-0400 Body temperature 98.3 [degF] Harriet Ginty Other [facility] Other 05-26-2021 13:15-0400 Body weight 95.26 kg Harriet Ginty Other [facility] Other 05-26-2021 13:15-0400 SaO2% (BldA) [Mass fraction] 96 % Harriet Ginty Other [facility] Other Encounters Encounter Date Encounter Type Care Provider Facility Start: 01-20-2024 End: 01-20-2024 ambulatory Zacarias Pike MD Facility:[facility] Start: 12-17-2023 End: 12-17-2023 ambulatory [facility] Work Phone: Start: 12-17-2023 End: 12-17-2023 Patient encounter procedure [facility] Work Phone: Start: 12-05-2023 End: 12-05-2023 ambulatory [facility] Work Phone: Start: 12-05-2023 End: 12-05-2023 Patient encounter procedure [facility] Work Phone: Start: 10-23-2023 Non-patient / Non-visit [facility] Work Phone: Start: 10-08-2023 Non-patient / Non-visit [facility] Work Phone: Start: 10-07-2023 End: 10-07-2023 ambulatory BARBIE CHILDERSOS Not Available Start: 09-18-2023 End: 09-18-2023 ambulatory Hannah Magallanes Other [facility] Other Start: 09-18-2023 Telephone encounter Hannah Sona [facility] Start: 09-13-2023 End: 09-13-2023 ambulatory Hannah Magallanes Other [facility] Other Start: 09-13-2023 Office outpatient vi sit 15 minutes Hannah Magallanes [facility] Start: 09-13-2023 End: 09-13-2023 Patient encounter procedure [facility]- Start: 09-11-2023 Telephone encounter Argentina coleman PT [...] 09-10-2023 End: 09-10-2023 ambulatory Hannah Magallanes Other [facility] Other Start: 09-10-2023 Telephone encounter Hannah Magallanes [facility] Start: 09-06-2023 End: 09-06-2023 ambulatory Hannah Magallanes Other [facility] Other Start: 09-06-2023 Telephone encounter Hannah Magallanes [facility] Start: 09-02-2023 End: 09-02-2023 ambulatory HI POCOS Not Available Start: 08-20-2023 End: 08-20-2023 ambulatory Hannah Sona Other [facility] Other Start: 08-20-2023 Telephone encounter Hannah Magallanes [facility] Start: 08-13-2023 End: 08-13-2023 ambulatory Hannah Magallanes Other [facility] Other Start: 08-13-2023 Office outpatient vi sit 25 minutes Hannah Magallanes [facility] Start: 08-13-2023 Telephone encounter Hannah Magallanes [facility] Start: 08-06-2023 End: 08-06-2023 ambulatory Hannah Magallanes Other [facility] Other Start: 08-06-2023 Telephone encounter Hannah Magallanes [facility] Start: 07-29-2023 End: 07-29-2023 ambulatory HI POCOS Not Available Start: 07-22-2023 End: 07-22-2023 ambulatory Hannah Magallanes Other [facility] Other Start: 07-22-2023 Telephone encounter Hannah Magallanes [facility] Start: 07-19-2023 End: 07-19-2023 ambulatory Hannah Magallanes Other [facility] Other Start: 07-19-2023 Telephone encounter Hannah Magallanes [facility] Start: 07-18-2023 End: 07-18-2023 ambulatory Hannah Magallanes Other [facility] Other Start: 07-18-2023 Telephone encounter Hannah Magallanes [facility] Start: 07-02-2023 End: 07-02-2023 ambulatory Hannah Magallanes Other [facility] Other Start: 07-02-2023 Office outpatient vi sit 15 minutes Hannah Magallanes [facility] Start: 07-02-2023 Telephone encounter Hannah Magallanes [facility] Start: 06-25-2023 End: 06-25-2023 ambulatory Hannah Magallanes Other [facility] Other Start: 06-25-2023 Office outpatient vi sit 15 minutes Hannah Magallanes [facility] Start: 06-21-2023 End: 06-21-2023 ambulatory Hannah Magallanes Other [facility] Other Start: 06-21-2023 Encounter by compute r link Hannah Magallanes [facility] Start: 06-20-2023 End: 06-20-2023 ambulatory Hannah Magallanes Other [facility] Other Start: 06-20-2023 Telephone encounter Hannah Magallanes [facility] Start: 06-17-2023 End: 06-17-2023 ambulatory Hannah Magallanes Other [facility] Other Start: 06-17-2023 Telephone encounter Hannah Magallanes [facility] Start: 06-10-2023 End: 06-10-2023 ambulatory Hannah Magallanes Other [facility] Other Start: 06-10-2023 Telephone encounter Hannah Magallanes [facility] Start: 06-03-2023 End: 06-03-2023 ambulatory Hannah Sona Other [facility] Other Start: 06-03-2023 Telephone encounter Hannah Magallanes [facility] Start: 05-30-2023 End: 05-31-2023 ambulatory Hi Pocos Facility:[facility] Start: 05-30-2023 End: 05-30-2023 Patient encounter procedure Hi Pocos [facility] Start: 05-28-2023 End: 05-28-2023 ambulatory Hannah Magallanes Other [facility] Other Start: 05-28-2023 Office outpatient vi sit 15 minutes Hannah Sona [facility] Start: 2023 End: 2023 ambulatory Hannah Sona Other [facility] Other Start: 2023 Office outpatient vi sit 15 minutes Hannah Sona [facility] Start: 05-16-2023 End: 05-16-2023 ambulatory Hannah Sona Other [facility] Other Start: 05-16-2023 Telephone encounter Hannah Magallanes [facility] Start: 04-30-2023 End: 04-30-2023 ambulatory Hannah Sona Other [facility] Other Start: 04-30-2023 Office outpatient vi sit 15 minutes Hannah Sona [facility] Start: 04-26-2023 End: 04-26-2023 ambulatory Hannah Sona Other [facility] Other Start: 04-26-2023 Telephone encounter Hannah Magallanes [facility] Start: 04-23-2023 End: 04-23-2023 ambulatory Hannah Magallanes Other [facility] Other Start: 04-23-2023 Telephone encounter Hannah Magallanes [facility] Start: 03-25-2023 End: 03-25-2023 ambulatory Hannah Sona Other [facility] Other Start: 03-25-2023 Telephone encounter Hannah Magallanes [facility] Start: 03-06-2023 End: 03-06-2023 ambulatory Hannah Sona Other [facility] Other Start: 03-06-2023 Telephone encounter Hannah Magallanes [facility] Start: 02-20-2023 End: 02-20-2023 ambulatory Hannah Sona Other [facility] Other Start: 02-20-2023 Office outpatient vi sit 25 minutes Hannah Sona [facility] Start: 02-05-2023 End: 02-05-2023 ambulatory Hannah Sona Other [facility] Other Start: 02-05-2023 Telephone encounter Hannah Magallanes [facility] Start: 01-21-2023 End: 01-21-2023 ambulatory Hannah Sona Other [facility] Other Start: 01-21-2023 Telephone encounter Hannah Sona [facility] [employer] Start: 01-17-2023 End: 01-17-2023 ambulatory Hannah Sona Other [facility] Other Start: 01-17-2023 Office outpatient vi sit 15 minutes Hannah Sona [facility] Start: 12-24-2022 End: 12-24-2022 ambulatory Hannah Sona Other [facility] Other Start: 12-24-2022 Telephone encounter Hannah Magallanes [facility] Start: 12-03-2022 End: 12-03-2022 ambulatory Hannah Sona Other [facility] Other Start: 12-03-2022 Telephone encounter Hannah Magallanes [facility] Start: 11-27-2022 End: 11-27-2022 ambulatory Hannah Magallanes Other [facility] Other Start: 11-27-2022 Telephone encounter Hannah Sona [facility] Start: 11-26-2022 End: 11-26-2022 ambulatory Hannah Magallanes Other [facility] Other Start: 11-26-2022 Telephone encounter Hannah Sona [facility] Start: 11-24-2022 End: 11-25-[address] HANNAH MAGALLANES Facility:[facility] Start: 11-23-2022 End: 11-23-2022 ambulatory Hannah Magallanes Other [facility] Other Start: 11-23-2022 Office outpatient vi sit 15 minutes Hannah Magallanes [facility] Start: 11-05-2022 End: 11-05-2022 ambulatory Hannah Magallanes Other [facility] Other Start: 11-05-2022 Telephone encounter Hannah Sona [facility] Start: 10-03-2022 End: 10-03-2022 ambulatory Hannah Sona Other [facility] Other Start: 10-03-2022 Telephone encounter Hannah Magallanes [facility] Start: 09-04-2022 End: 09-04-2022 ambulatory Hannah Magallanes Other [facility] Other Start: 09-04-2022 Office outpatient vi sit 25 minutes Hannah Magallanes [facility] Start: 07-26-[address] HANNAH MAGALLANES [facility] ity:[facility] Start: 07-19-2022 End: 07-20-[address] WILFREDO ENGLE Facility:[facility] Start: 06-07-2022 End: 06-07-[address] HANNAH MAGALLANES Facility:[facility] Start: 03-15-2022 ambulatory KESHA TRUJILLO Facility:[facility] Start: 02-06-2022 End: 02-06-2022 ambulatory Kesha Sharmamartin Other [facility] Other Start: 02-06-2022 Office outpatient vi sit 25 minutes Kesha Trujillo [facility] Start: 02-02-2022 End: 02-03-2022 ambulatory KESHA TRUJILLO Facility:[facility] Start: 12-28-2021 End: 12-28-[address] HANNAH MAGALLANES Facility:[facility] Start: 12-12-2021 End: 12-13-2021 ambulatory KESHA TRUJILLO [facility] Other Start: 12-12-2021 Office outpatient ne w 30 minutes Kesha Trujillo [facility] Start: 05-26-2021 Office outpatient vi [...] [facility] [address] [place] [address] PocBarbie cortes DO [address] [place] [address] [facility] XR Pelvis and Hip - bilateral Views [facility] Immunizations Immunization Date Immunization Notes Care Provider Fa cili 06-02-2018 Influenza, injectabl e, Madin Kyleigh Canine Kidney, preservative free, quadrivalent Argentina Clinton PT Work Phone: [facility] 05-17-2017 influenza virus vaccine, split virus (incl. purified surface antigen) Hannah Magallanes Other [facility] Other 05-17-2017 influenza virus vaccine, unspecified formulation [facility] 05-16-2017 influenza, injectabl e, quadrivalent, preservative free Argentina Clinton PT Work Phone: [facility] 06-28-2016 influenza, injectabl e, quadrivalent, preservative free Argentina Clinton PT Work Phone: [facility] 06-28-2016 tetanus and diphther ia toxoids, adsorbed, preservative free, for adult use (5 Lf of tetanus toxoid and 2 Lf of diphtheria toxoid) Hannah Magallanes Other [facility] 05-25-2015 influenza, seasonal, injectable, preservative free Argentina Clinton PT Work Phone: [facility] 05-25-2015 tetanus and diphther ia toxoids, adsorbed, preservative free, for adult use (5 Lf of tetanus toxoid and 2 Lf of diphtheria toxoid) Hannah Magallanes Other [facility] 06-15-1999 pneumococcal conjuga te vaccine, 7 valent Argentina Clinton PT Work Phone: [facility] Payers Date Payer Category Payer Medicaid [id number] 2013 Medicare [id number] 1960 Unknown [id number] 2.16.84 [id number] 1960 Unknown [id number] 2.16.84 0.1.829180.3.579.2.593 1960 Unknown [id number] 2.16.84 0.1.742482.3.579.2.593 1960 Unknown [id number] 2.16.84 0.1.789737.3.579.2.593 1960 Unknown [id number] 2.16.84 0.1.428951.3.579.2.593 1960 Unknown [id number] 2.16.84 0.1.478933.3.579.2.593 1960 Unknown [id number] 2.16.84 0.1.057593.3.579.2.593 1960 Unknown [id number] 2.16.84 0.1.973922.3.579.2.593 1960 Unknown [id number] 2.16.8 40.1.322396.3.579.2.727 1960 Unknown [id number] 2.16.84 0.1.273141.3.579.2.1259 1960 Unknown [id number] 2.16.84 0.1.053164.3.579.2.1259 1960 Unknown [id number] 2.16.84 0.1.539333.3.579.2.1259 1960 Unknown [id number] 2.16.840 .1.806450.3.579.2.1259 1960 Unknown [id number] 2.16. [id number] 1959 Medicaid [id number] 2. [id number] 1959 Medicare [id number] 2.1 [id number] Self-pay Self Pay [id number] Social History Date Type Detail Facility Start: 09-02-2023 Sex Assigned At [facility] Tobacco smoking status No Smokin g Status Entered [facility] Start: 03-27-2023 Tobacco smoking status NCIS Smokes tobacco daily [facility] Work Phone: History of tobacco use Cigarette Smoker [facility] Start: 03-27-2023 End: 09-02-2023 Cigarettes smoked current (pack per day) - Reported 0.5 [facility] Start: 03-27-2023 Tobacco use and exposure Smokeless tobacco non-user [facility] Start: 09-02-2023 Alcohol intake Lifetime non-drinker (finding) [facility] Start: 03-27-2023 Alcohol Comment Caffine- Soda [facility] Start: 1960 Sex Assigned At Male [facility] Start: 08-21-2023 Gender identity Identifies as male gender (finding) [facility] Start: 08-21-2023 Sexual orientation Heterosexual (finding) [facility] Start: 02-06-2017 Tobacco smoking status NHIS Ex-smoker (finding) [facility] Medical Equipment Procedure Code Equipment Code Equipment Original Text Equi pment Identifier Dates Accu-Chek Fast[employer]ix Lancet - Clinical Notes 05-26-2021 to 10-02-2023 Telephone Encounter - Maris Tavera - 10/02/2023 1:35 PM ESTTelephone Encounter - Maris Tavera - 10/02/2023 1:35 PM EST Note Date & Type Note Facility 10-02-2023 Telephone encounter Note Form atting of this note might be different from the original. No attempts to hear back; closing referral. [facility] 10-02-2023 Miscellaneous Notes Formattin g of this note might be different from the original. No attempts to hear back; closing referral. documented in this encounter [facility] 09-13-2023 Evaluation note Encounter Date Diagnosis Assessment Notes Aug, Chronic obstructive pulmonary disease, unspecified (ICD-10 - J44.9) Finish antibiotics and prednisone as prescribed. Denies pulmonary referral at this time. Hasn't smoked since 09/08 and declines chantix or patches. Aug, Current smoker (ICD-10 - F17.200) [facility] Other 01-23-2024 Evaluation note* Encounter Date Diagnosis Assessment Notes Treatment Notes Treatment Clinical Notes Aug, Lumbar radicular pain (ICD-10 - M54.16) [facility] Other 01-19-2024 Evaluation note* Encounter Date Diagnosis Assessment Notes Treatment Notes Treatment Clinical Notes Aug, Lumbar radicular pain (ICD-10 - M54.16) [facility] Other 12-26-2023 Evaluation note* Encounter Date Diagnosis Assessment Notes Treatment Notes Treatment Clinical Notes Jul, Type 2 diabetes mellitus with hyperglycemia, without long-term current use of insulin (ICD-10 - E11.65) [facility] Other 12-26-2023 Evaluation note* Encounter Date Diagnosis [...] T3s after shoulder pain has improved post-operatively. [facility] Other 12-04-2023 Evaluation note* Encounter Date Diagnosis Assessment Notes Treatment Notes Treatment Clinical Notes Jul, Type 2 diabetes mellitus with hyperglycemia, without long-term current use of insulin (ICD-10 - E11.65) [facility] Other 12-01-2023 Evaluation note* Encounter Date Diagnosis Assessment Notes Treatment Notes Treatment Clinical Notes Jul, Type 2 diabetes mellitus with hyperglycemia, without long-term current use of insulin (ICD-10 - E11.65) [facility] Other 11-30-2023 Evaluation note* Encounter Date Diagnosis Assessment Notes Treatment Notes Treatment Clinical Notes Jun, Labral tear of shoulder, right, subsequent encounter (ICD-10 - S43.431D) [facility] Other 11-14-2023 Evaluation note* Encounter Date Diagnosis [...] pain (ICD-10 - R07.9) r/o cardiac cause [facility] Other 11-07-2023 Evaluation note* Encounter Date Diagnosis [...] to decrease dose and possibly discontinue medication. [facility] Other 11-02-2023 Evaluation note* Encounter Date Diagnosis Assessment Notes Treatment Notes Treatment Clinical Notes Jun, Acute pain of right shoulder (ICD-10 - M25.511) [facility] Other 10-30-2023 Evaluation note* Encounter Date Diagnosis Assessment Notes Treatment Notes Treatment Clinical Notes May, Acute pain of right shoulder (ICD-10 - M25.511) [facility] Other 10-23-2023 Evaluation note* Encounter Date Diagnosis Assessment Notes Treatment Notes Treatment Clinical Notes May, Acute pain of right shoulder (ICD-10 - M25.511) [facility] Other 10-16-2023 Evaluation note* Encounter Date Diagnosis Assessment Notes Treatment Notes Treatment Clinical Notes May, Acute pain of right shoulder (ICD-10 - M25.511) [facility] Other 10-10-2023 Evaluation note* Encounter Date Diagnosis Assessment Notes Treatment Notes Treatment Clinical Notes May, Acute pain of right shoulder (ICD-10 - M25.511) MRI and surgery planning pending. Pt understands this is a controlled substance and to call in 1 week w update on treatment plan. May, Bronchitis (ICD-10 - J40) Finish antibiotic, rest, hydrate Steroids for wheezing. [facility] Other 10-04-2023 Evaluation note* Encounter Date Diagnosis Assessment Notes Treatment Notes Treatment Clinical Notes May, Acute pain of right shoulder (ICD-10 - M25.511) Reviewed [place] and discussed short term plan of increase in pain medication. He is due for a refill of the T3s presently. Stop them, replace w norco. Pt understands weekly prescription and will need to d/c after anticipated surgery. [facility] Other 09-12-2023 Evaluation note* Encounter Date Diagnosis [...] office and the ER visit on 04/26 [facility] Other 07-05-2023 Evaluation note* Encounter Date Diagnosis [...] and will need less prn pain med. [facility] Other 06-01-2023 Evaluation note* Encounter Date Diagnosis Assessment Notes Treatment Notes Treatment Clinical Notes Jan, RUQ pain (ICD-10 - R10.11) Discussed differential. continues to decline c-scope. start w labs and GBUS. Jan, Other chronic pain (ICD-10 - G89.29) Jan, Pain in right shoulder (ICD-10 - M25.511) Pt requests referral to Dr. Jesus - [facility] for intrarticular injections. Jan, Pain in left shoulder (ICD-10 - M25.512) as above. [facility] Other 04-17-2023 Evaluation note* Encounter Date Diagnosis Assessment Notes Treatment Notes Treatment Clinical Notes Nov, Bronchitis (ICD-10 - J40) [facility] Other 04-11-2023 Evaluation note* Encounter Date Diagnosis Assessment Notes Treatment Notes Treatment Clinical Notes Nov, Disc degeneration, lumbar (ICD-10 - M51.36) Nov, Lumbar radicular pain (ICD-10 - M54.16) [facility] Other 04-07-2023 Evaluation note* Encounter Date Diagnosis [...] quit smoking. Pt verbalizes understanding and agreement. [facility] Other 02-15-2023 Evaluation note* Encounter Date Diagnosis Assessment Notes Treatment Notes Treatment Clinical Notes Sep, Lumbar radicular pain (ICD-10 - M54.16) [facility] Other 01-17-2023 Evaluation note* Encounter Date Diagnosis [...] is outlined on the test result page. [facility] Other 10-20-2022 NoteIndication: Calculus in kidney. Comparison: [...] Electronically authenticated by: JOHN PINTO Date: 2022-06-07 20:07[facility]06-21-2022 Evaluation note* Encounter Date Diagnosis [...] of infection, hardware pullout, cuff repair failure, shelter pain and stiffness are well known problems [...] of repair, infection and wound healing delays. [facility] Other 04-26-2022 NotePROCEDURE: XR SHOULDER LT 2V or > COMPARISON: None. HISTORY: Pain of left shoulder joint FINDINGS: BONES:No acute fracture or dislocation. 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 No visible soft tissue swelling. EFFUSION:None visible. OTHER: Negative. IMPRESSION: Mild osteoarthritis Electronically authenticated by: BARBIE MEMBRENO Date: 2021-12-12 15:[address] [place], [place] [address]852004-26-2022 Evaluation note* Encounter Date Diagnosis Assessment Notes [...] pain of left shoulder (ICD-10 - M25.512) [facility] Other 10-08-2021 Evaluation note* Encounter Date Diagnosis [...] as needed for cough. Advised patient that [place] contains antihistamine and cough suppressant and to be cautious using other OTC cold medications. Patient to follow up with PCP if symptoms do not improve. Immediate eval if SOB, difficulty breathing, chest pain, dizziness, or other concerning symptoms. Patient verbalizes understanding and is agreeable to treatment plan [facility] [employer] Other Evaluation + Plan note No data available for this section [facility] noteNo InformationNortGeising[facility] Other Evaluation note* Diagnosis Onset Date Resolution Status Arthralgia acute Lumbar pain acute Type II diabetes mellitus ac [place] [facility] Work Phone: Evaluation note* Diagnosis Onset Date Resolution Status Arthralgia acute Lumbar pain acute Type II diabetes mellitus ac [place] Bilateral hip pain acute [facility] Work Phone: History general Narrative - Reported* Type Description Date Medical History Asthma Medical History skin cancer-lip Surgical History Left lung biopsy 1977 Surgical History L4 and L5 disc fusion 1984 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 Surgical History carpal tunnel release 2016 Surgical History tonsillectomy Hospitalization History 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 Hospitalization History pneumonia [facility] Other Hospital Discharge instructions No data available for this section [facility] No data available for this section [facility] Summary Purpose Family History No Family History Records Found Relationship Condition Age at Onset Recorded Date/T alayna father Unknown Malignant neoplasm Unknown Not Specified Unknown Advance Directives No Advanced Directives Records Found Advance Directive Response Recorded Date/ Time Advance Directives No January 25 9:53am Reason for Referral Reason *FU 02/27 Epigastr ic pain, gall bladder polyp. Agrees to treatment, except colonoscopy. Last OV and today, labs and US scanned into chart. thanks Diagnosis 1 Epigastric abdominal pain (R10.13) Referral Organization [facility] Recognia omar Referring Provider First Name Hannah Referring Provider Last Name Sona Referring Provider Specialty [facility] Referred Organization [facility] Referred Provider Sai Martinez Referred Address ,[place], [place],[address] Referred Provider Specialty Surgery Referral Priority Routine General Notes Es Camilo 11:38:02 AM >received today, attachments made, notes locked, referral faxed Reason 01/28/23 Access Or tho - B shoulder pain L>R - hopes for injections. Diagnosis 1 Pain in right should er (M25.511) Referral Organization [facility]ogn[facility] omar Referring Provider First Name Hannah Referring Provider Last Name Sona Referring Provider [facility] Referred Organization [facility] Referred Provider Barbie Jesus Referred Address ,[place], [place],[address] Referred Provider Specialty Orthopaedic Surgery Referral Priority [...] in right should er (M25.511) Referral Organization [facility] Recogn[facility] omar Referring Provider First Name Hannah Referring Provider Last Name Sona Referring Provider Specialty [facility] Referred Organization [facility] Referred Provider Barbie Jesus Referred Address ,[place], [place],[address] Referred Provider Specialty Orthopaedic Surgery Referral Priority [...] section and content) DATE CREATED AUTHOR 02/10/2022 [facility] DATE CREATED AUTHOR AUTHOR'S ORGANIZ ATION 12/04/2022 [facility] DATE CREATED AUTHOR AUTHOR'S ORGANIZ ATION 06/01/2023 [facility] DATE CREATED AUTHOR AUTHOR'S ORGANIZ ATION 10/07/2023 [facility] EPIC DATE CREATED AUTHOR AUTHOR'S ALEIDA PALMA 01/28/2024 [facility] Patient Care team informatio n (unrecognized section and content) Team Status: Active Member Role Status Dates Hannah Magallanes MD Primary Care Provider Active Team Status: Active Member Role Status Dates Hannah Magallanes MD Primary Care Provider Active Start: October 08, 2023 STEPHANY Davies Attending Provider Active Start : October 08, 2023 Team Status: Active Member Role Status Dates Hannah Magallanes MD Primary Care Provider Active Start: October 23, 2023 STEPHANY Davies Attending Provider Active Start : October 23, 2023 Team Status: Inactive Member Role Status Dates Hannah Magallanes MD Primary Care Provide r, Attending Provider Active Start: December 05, 2023 End: December 05, 2023 Team Status: Inactive Member Role Status Dates Hannah Magallanes MD Primary Care Provide r, Attending Provider Active Start: December 17, 2023 End: December 17, 2023 [employer] Relationship Specialty Start Date End Date Hannah Magallanes MD [address] [place] [address] PCP - General Family Medicine 01/23/23 Team Status: Inactive Member Role Status Dates Hannah Magallanes MD Attending Provider Active St art: September 13, 2023 End: September 13, 2023 Goals (unrecognized section and content) Goals [...] BE BASED ON THE PRIMARY CLINICAL RECORDS. [employer] provides no warranty or guarantee of the accuracy or completeness of information in this document.
[2024-02-03 08:32] VITALS: BP 129/79; PULSE 57; TEMP 37.3; O2SAT 95
[2024-02-03 08:33] LABS: Glucometer 172 mg/dL (74-106)
[2024-02-03] MEDS: BUPIVACAINE HCL 0.25% PF 25 MG/10 ML VIAL 5 ML INJ (09:14)
[2024-02-03] MEDS: LIDOCAINE HCL 2% 400 MG/20 ML MDV 15 ML INJ (09:15)
[2024-02-03] MEDS: TRIAMCINOLONE ACETONIDE 40 MG/ML VIAL INJ (09:15)
[2024-02-03] MEDS: IOHEXOL 240 MG/ML - 10 ML VIAL INJ (09:15)
--- NOTE | 2024-02-03 09:16 | W.PM.PROCNOT ---
Date of procedure: 02/03/24 Pre-op diagnosis: Pain due to bilateral sacroiliitis Post-op diagnosis: same as pre-op Procedure: Procedure: Bilateral sacroiliac joint injection Medications: Bupivacaine 0.25% 3cc, kenalog 40mg x2 After informed consent was obtained, the patient was brought to the medical procedure unit and placed in the prone position, when a timeout was completed verifying correct patient, procedure, site, positioning, implant, and/or special equipment.? The skin overlying the area was prepped and draped in standard sterile fashion using alcohol.? A 25-gauge needle was inserted towards the left sacroiliac joint under direct fluoroscopic imaging.? Needle tip was advanced until the joint was encountered.? We instilled a total of 2 mL of solution.? The same procedure was then completed on the right side.? Postoperatively needles were removed.? The patient tolerated the procedure well without complication.? The patient reported reduction in pain symptoms postoperatively. Anesthesia: Local Surgeon: Zacarias Pike Pathology: none sent Condition: stable Disposition: no change
[2024-02-03 09:17] VITALS: BP 146/82; BP 148/75; PULSE 60; O2SAT 97
== END 2024-02-03 09:20 | disposition home or self-care (01) ==
PROVIDERS: PCP Family Medicine; Visit Provider Anesthesiology
DX: M46.1 Sacroiliitis, not elsewhere classified (principal); Z79.84 Long term (current) use of oral hypoglycemic drugs
CPT/HCPCS: 27096; 36415; 82948; J0665; J3301; Q9966

== ENCOUNTER 2024-02-13 07:41 | Outpatient (OUT) | payer MEDICARE, MEDICAID, SELFPAY ==
--- OUTSIDE RECORDS SUMMARY | 2024-02-13 07:45 | XMS_ITS | CCD ---
Author Organization [facility]ini[facility] Care Team Providers Care Range Operator Name Role Phone Kesha Trujillo Unavailable Chepe Harriet Unavailable Hannah Magallanes Unavailable SONA, DR HANNAH Jovel Admitting Unavailable MAGALLANES, DR HANNAH Jovel Attending Unavailable MAGALLANES, DR HANNAH Jovel Primary Care Unavailable MAGALLANES, DR HANNAH Jovel Consulting Unavailable TAVERAS, RUBI Consulting Unavailable OLEXA, KESHA Admitting Unavailable OLEXA, KESHA Attending Unavailable MAGALLANES, DR HANNAH Jovel Primary Care Unavailable WILLET, DR BARBIE Goldberg Consulting Unavailable OLEXA, KESHA [...] BREE, DR CARLOS Drummond Consulting Unavailable MILLIE, HOSSAM Consulting Unavailable HANNAH MAGALLANES Primary Care Physician [phone] Edin, Barbie Tellez Referring Unavailable Pocos, Barbie Tellez Attending Unavailable Pocdoron, Barbie Tellez Admitting Unavailable Hannah Magallanes MD Primary Care Provider [phone] POCDORON, BARBIE Tellez Attending Unavailable POCOSBARBIE Referring Unavailable POCOS, BARBIE Tellez Attending Unavailable POCOS, BARBIE Tellez Attending Unavailable Gieshaitis , Zacarias Miranda Attending Unavailable Gieshaitis , Zacarias Miranda Attending Unavailable Allergies Allergy Classification Reported Allergen(s) Allergy Type Date of Onset Reaction(s) Facility (20 sources) Ibuprofen Drug Allergy [facility] [employer] Other (20 sources) olodaterol / tiotropium Drug Allergy shortness of breath [facility] [employer] Other (20 sources) CT Scan dye Propensity to adverse reactions [facility] [employer] Other (4 sources) Ibuprofen Drug Allergy 08-19-18 80 [facility] (2 sources) Iodine (And Iodine Containting Drugs) Drug allergy (disorder) 09-07-19 16 [facility] (1 source) NSAIDs Drug allergy (disorder) [facility] (20 sources) fentaNYL Drug Allergy 12-05-19 24 Unknown, [facility] (4 sources) Ibuprofen Drug Allergy 01-15-20 15 [facility] (20 sources) Ofloxacin Drug Allergy 12-05-19 24 Unknown, [facility] (3 sources) zafirlukast Drug Allergy 01-15-20 15 Unknown [facility] [employer] Other (20 sources) Zafirlukast *ANTIASTHMATIC AND BRONCHODILATOR AGEN Propensity to adverse reactions Unknown [facility] [employer] Other (20 sources) Ibuprofen & Diet Manage Prod *ANALGESICS - ANTI-IN Propensity to adverse reactions Unknown [facility] [employer] Other (3 sources) Allergies Reconciled Propensity to adverse reactions Unknown [facility] Other (20 sources) Iodinated contrast media (substance) Drug allergy 06-03-20 19 Rash [facility] Other (3 sources) patient allergy list reviewed by nurse or physicia Propensity to adverse reactions 10-05-19 16 Comment:Done [facility] Other (2 sources) olodaterol Drug Allergy 12-05-19 24 shortness of breath [facility] (2 sources) tiotropium Drug Allergy 12-05-19 shortness of breath [facility] (2 sources) Iodinated Contrast Media Allergy to substance 12-05-19 [facility] (2 sources) Ibuprofen & Diet Manage Prod * Allergy to substance 12-04-19 [facility] (2 sources) Zafirlukast *ANTIASTHMATIC AND Allergy to substance 12-04-19 [facility] Medications Current Medications Medication Drug Class(es) [...] as needed Orally every 6 hrs Active [id number] 200 actuat albuterol 0.09 mg/actuat metered dose [...] ) Start: 07-19-2023 take 2 tablets by [facility] in the morning glipiZIDE-metFORMIN (Metaglip) 5-500 MG tablet Take 2 tablets by mouth in the morning and 2 tablets before bedtime. 0 07/19/2023 Active take 2 tablets by mo [facility] twice daily glipiZIDE-metFORMIN HCl 5-500 MG 2 tab Orally bid for 90 days Active take 1 tablet by desirae th twice daily glipiZIDE-metFORMIN HCl 5-500 MG 1 [...] Start: 11-23-2022 take 2 tablets by mo [facility] every twenty-four hours predniSONE 20 [...] days May, Active Start: 2023 HYDROcodone-ac etaminophen ([place]) 10-325 MG tablet Start: 2023 take 1 [...] 30 mg oral tablet (5 sources) Uncompetitive K-fmsraq-U-aspartate Receptor Antagonist, Sigma-1 Agonist Start: 05-26-2021 take 1 tablet by mouth every eight hours Oxford DMT 30-30 MG 1 tablet Orally every [...] 10-05-2015 Episodic Other aftercare (1 source) 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; Translations: [OTH 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 ANALYST CURRENT DRUG THERAPY] Onset: 12-29-2021 Episodic Other [...] Basophils (Bld) [#/Vol] 0.1 10 3/uL 0.0-0.1 [facility] Basophils/100 WBC Auto (Bld) on 12-05-2023 Basophils/100 WBC (Bld) 0.9 % 0.2-2.0 [facility] Eosinophils/100 WBC Auto (Bl d)on 12-05-2023 Eosinophils/100 WBC (Bld) 2.7 % 0.9-7.0 [facility] Erythrocyte distribution wid th Auto (RBC) [Ratio]on 12-05-2023 Erythrocyte distribution width (RBC) [Ratio] 13.1 % 11.0-15.0 [facility] Estimated glomerular filtrat ion rate (GFR) non- Americanon 12-05-2023 GFR/1.73 sq M.predicted among non-blacks MDRD (S/P/Bld) [Vol rate/Area] mL/min/{1.73_m2} >=60 [facility] Glucose mean value [Mass/vol ume] in Blood Estimated from glycated hemoglobinon 12-05-2023 Average glucose Estimated from glycated hemoglobin (Bld) [Mass/Vol] 171 mg/dL [facility] Hematocrit Auto (Bld) [Volum e fraction]on 12-05-2023 Hematocrit (Bld) [Volume fraction] 48.9 % 42.0-54.0 [facility] Hemoglobin [Mass/volume] in Bloodon 12-05-2023 Hemoglobin (Bld) [Mass/Vol] 16.0 g/dL 14.0-18.0 [facility] Laboratory - Chemistry and C hemistry - challengeon 12-05-2023 Calcium [Mass/Vol] 9.7 mg/dL 8.5-10.1 [facility] Chloride [Moles/Vol] 102 mmol/L 98-107 [facility] CO2 [Moles/Vol] 27.6 mmol/L 21.0-32.0 [facility] Creatinine [Mass/Vol] 1.01 mg/dL 0.70-1.30 [facility] GFR/1.73 sq M.predicted MDRD (S/P/Bld) [Vol rate/Area] mL/min/{1.73_m2} >=60 [facility] Glucose [Mass/Vol] 156 mg/dL 74-106 [facility] Potassium [Moles/Vol] 4.4 mmol/L 3.5-5.1 [facility] Sodium [Moles/Vol] 139 mmol/L 136-145 [facility] Urea nitrogen [Mass/Vol] 13.0 mg/dL 7.0-18.0 [facility] Urea nitrogen/Creatinine [Mass ratio] 12.9 mg/mg [facility] Laboratory - Hematology and Cell countson 12-05-2023 ESR (Bld) [Velocity] 17 mm/h <=20 [facility] HbA1c (Bld) [Mass fraction] 7.6 % 4.5-6.2 [facility] Comment on above: ADA RECOMMENDED LIMI T 4.0 - 6.0ADA THERAPEUTIC TARGET < 7.0ACTION SUGGESTED> 7.0 Immature granulocytes/100 WBC (Bld) 0.4 % 0.0-0.5 [facility] Leukocytes [#/volume] correc jean claude for nucleated erythrocytes in Blood by Automated counon 12-05-2023 WBC corrected for nucl RBC Auto (Bld) [#/Vol] 7.7 10 3/uL 4.0-11.0 [facility] Lymphocytes Auto (Bld) [#/Vo l]on 12-05-2023 Lymphocytes (Bld) [#/Vol] 2.4 10 3/uL 1.2-3.8 [facility] Lymphocytes/100 WBC Auto (Bl d)on 12-05-2023 Lymphocytes/100 WBC (Bld) 31.2 % 20.5-60.0 [facility] MCH Auto (RBC) [Entitic mass ]on 12-05-2023 MCH (RBC) [Entitic mass] 28.5 pg 25.9-34.0 [facility] MCHC Auto (RBC) [Mass/Vol]on 12-05-2023 MCHC (RBC) [Mass/Vol] 32.7 g/dL 29.9-35.2 [facility] MCV Auto (RBC) [Entitic vol] on 12-05-2023 MCV (RBC) [Entitic vol] 87.0 fL 80.0-94.0 [facility] Monocytes Auto (Bld) [#/Vol] on 12-05-2023 Monocytes (Bld) [#/Vol] 0.7 10 3/uL 0.3-0.8 [facility] Monocytes/100 WBC Auto (Bld) on 12-05-2023 Monocytes/100 WBC (Bld) 9.5 % 1.7-12.0 [facility] Neutrophils Auto (Bld) [#/Vo l]on 12-05-2023 Neutrophils (Bld) [#/Vol] 4.2 10 3/uL 1.4-6.5 [facility] Neutrophils/100 WBC Auto (Bl d)on 12-05-2023 Neutrophils/100 WBC (Bld) 55.3 % 43.0-75.0 [facility] No Panel Informationon 12-04 Eosinophils # (Auto) 0.2 10 3/uL 0.0-0.7 [facility] Immature Granulocyte # (Auto) 0.03 10 3/uL 0.00-0.03 [facility] Platelet mean volume Auto (B ld) [Entitic vol]on 12-05-2023 Platelet mean volume (Bld) [Entitic vol] 8.6 fL 9.5-13.5 [facility] Platelets Auto (Bld) [#/Vol] on 12-05-2023 Platelets (Bld) [#/Vol] 330 10 3/uL 150-450 [facility] RBC Auto (Bld) [#/Vol]on RBC (Bld) [#/Vol] 5.62 10 6/uL 4.70-6.10 [facility] Serum or plasma anion gap de terminationon 12-05-2023 Anion gap [Moles/Vol] 13.8 mmol/L [facility] Magnesiumon 07-02-2023 Magnesium [Mass/Vol] 2.2869542 mg/dL Normal 1.8-2.4 mg/dL [facility] Other Magnesium see note [facility] Other MRI Shoulder w/o Contrast Ilya [facility] 05-31-2023 MRI Shoulder w/o Contrast Right Exam Date/Time: 05/30/2023 14:25 EDT Reason for Exam: [id number] Report IMPRESSION: Full-thickness rotator cuff tearing involving [...] TAMARA Technologist: STELLA Technical Comments None Normal [facility] Consent for Treatmenton 05-19 Consent for Treatment [id number]#1 .00TIFF Normal [facility] RAD - MRI Screening Formon 1 RAD - MRI Screening Form [id number]#1. 00TIFF Normal [facility] Physician Orderon 05-09-2023 Physician Order [id number]# 1.00CD:127 Normal [facility] XR CHEST 2 Von 11-24-2022 [...] RUBI TAVERAS Date: 2022-11-24 17:17 [address] [facility] [address] LUNG CANCER SCREENINGon 1 09-20-2021 [...] YEISON NAVAS Date: 2022-07-20 07:18 Normal [facility] CBC AUTO DIFFon 06-07-2022 BASO # 0.1 103/ul Normal 0.0-0.1 [facility] Comment on above: Performed By: #### C BC #### [facility] [address] [place] [address] Dr. Eran Chacon Basophils/100 WBC (Bld) 0.6 % Normal 0.2-2.0 [facility] Comment on above: Performed By: #### C BC #### [facility] [address] [place] [address] Dr. Eran Chacon EO # 0.3 103/ul Normal 0.0-0.7 [facility] Comment on above: Performed By: #### C BC #### [facility] [address] [place] [address] Dr. Eran Chacon Eosinophils/100 WBC (Bld) 3.3 % Normal 0.9-7.0 [facility] Comment on above: Performed By: #### C BC #### [facility] [address] [place] [address] Dr. Eran Chacon Erythrocyte distribution width (RBC) [Ratio] 12.9 % Normal 11.0-15.0 [facility] Comment on above: Performed By: #### C BC #### [facility] [address] [place] [address] Dr. Eran Chacon Hematocrit (Bld) [Volume fraction] 47.7 % Normal 42.0-54.0 [facility] Comment on above: Performed By: #### C BC #### [facility] [address] [place] [address] Dr. Eran Chacon Hemoglobin (Bld) [Mass/Vol] 15.9 g/dL Normal 14.0-18.0 [facility] Comment on above: Performed By: #### C BC #### [facility] [address] [place] [address] Dr. Eran Chacon IG # 0.02 10e3/ul Normal 0.00-0.03 [facility] Comment on above: Performed By: #### C BC #### [facility] [address] [place] [address] Dr. Eran Chacon IG % 0.2 % Normal 0.0-0.5 [facility] Comment on above: Performed By: #### C BC #### [facility] [address] [place] [address] Dr. Eran Chacon LYMPH # 3.4 103/ul Normal 1.2-3.8 [facility] Comment on above: Performed By: #### C BC #### [facility] [address] [place] [address] Dr. Eran Chacon Lymphocytes/100 WBC (Bld) 34.5 % Normal 20.5-60.0 [facility] Comment on above: Performed By: #### C BC #### [facility] [address] [place] [address] Dr. Eran Chacon MANUAL DIFF REQ NO Normal [facility] Comment on above: Performed By: #### C BC #### [facility] [address] [place] [address] Dr. Eran Chacon MCH (RBC) [Entitic mass] 29.6 pg Normal 25.9-34.0 [facility] Comment on above: Performed By: #### C BC #### [facility] [address] [place] [address] Dr. Eran Chacon MCHC (RBC) [Mass/Vol] 33.3 g/dL Normal 29.9-35.2 [facility] Comment on above: Performed By: #### C BC #### [facility] [address] [place] [address] Dr. Eran Chacon MCV (RBC) [Entitic vol] 88.8 fL Normal 80.0-94.0 [facility] Comment on above: Performed By: #### C BC #### [facility] [address] [place] [address] Dr. Eran Chacon MONO # 0.9 103/ul Critically high 0.3-0.8 [facility] Comment on above: Performed By: #### C BC #### [facility] [address] [place] [address] Dr. Eran Chacon Monocytes/100 WBC (Bld) 9.3 % Normal 1.7-12.0 [facility] Comment on above: Performed By: #### C BC #### [facility] [address] [place] [address] Dr. Eran Chacon NEUT # 5.2 103/ul Normal 1.4-6.5 [facility] Comment on above: Performed By: #### C BC #### [facility] [address] [place] [address] Dr. Eran Chacon Neutrophils/100 WBC (Bld) 52.1 % Normal 43.0-75.0 [facility] Comment on above: Performed By: #### C BC #### [facility] [address] [place] [address] Dr. Eran Chacon Platelet mean volume (Bld) [Entitic vol] 8.8 fL Critically low 9.5-13.5 [facility] Comment on above: Performed By: #### C BC #### [facility] [address] [place] [address] Dr. Eran Chacon PLT 287 103/ul Normal 150-450 [facility] Comment on above: Performed By: #### C BC #### [facility] [address] [place] [address] Dr. Eran Chacon RBC 5.37 106/ul Normal 4.70-6.10 [facility] Comment on above: Performed By: #### C BC #### [facility] [address] [place] [address] Dr. Eran Chacon WBC 9.9 103/ul Normal 4.0-11.0 [facility] Comment on above: Performed By: #### C BC #### [facility] [address] [place] [address] Dr. Eran Chacon ER URINE PROFILEon 2 Bilirubin Ql (U) Negative Normal NEGATIVE [facility] Comment on above: Performed By: #### Med SHER UMICRO #### [facility] [address] [place] [address] Dr. Eran Chacon Clarity (U) CLEAR Normal CLEAR [facility] Comment on above: Performed By: #### Med SHER UMICRO #### [facility] [address] [place] [address] Dr. Eran Chacon Color (U) YELLOW Normal YELLOW [facility] Comment on above: Performed By: #### Med SHER UMICRO #### [facility] [address] [place] [address] Dr. Eran Chacon ERUAHD A micrscopic examination will be performed if indicated. Normal [facility] Comment on above: Performed By: #### ERMELINDA BATESICRO #### [facility] [address] [place] [address] Dr. Eran Chacon Glucose Ql (U) 500 mg/dl Abnormal NEGATIVE [facility] Comment on above: Performed By: #### BISHNU BATESRO #### [facility] [address] [place] [address] Dr. Eran Chacon Hemoglobin Ql (U) TRACE-INTACT Abnormal NEGATIVE [facility] Comment on above: Performed By: #### HANNA BATES #### [facility] [address] [place] [address] Dr. Eran Chacon Ketones Ql (U) Negative Normal NEGATIVE [facility] Comment on above: Performed By: #### BISHNU BATESRO #### [facility] [address] [place] [address] Dr. Eran Chacon LEUKOCYTES Negative Normal NEGATIVE [facility] Comment on above: Performed By: #### HANNA BATES #### [facility] [address] [place] [address] Dr. Eran Chacon Nitrite Ql (U) Negative Normal NEGATIVE [facility] Comment on above: Performed By: #### BISHNU BATESRO #### [facility] [address] [place] [address] Dr. Eran Chacon pH (U) 6.0 [pH] Normal 5-9 [facility] Comment on above: Performed By: #### HANNA BATES #### [facility] [address] [place] [address] Dr. Eran Chacon SPEC GRAVITY 1.025 Normal 1.005-<=1.025 [facility] Comment on above: Performed By: #### BISHNU BATESRO #### [facility] [address] [place] [address] Dr. Eran Chacon UA PROTEIN Negative Normal NEGATIVE/ TRACE [facility] Comment on above: Performed By: #### BISHNU BATESRO #### [facility] [address] [place] [address] Dr. Eran Chacon UR MICRO IND INDICATED Normal [facility] Comment on above: Performed By: #### HANNA BATES #### [facility] [address] [place] [address] Dr. Eran Chacon Urobilinogen Qn (U) 0.2 {Aureliano'U}/dL Normal 0.2 - 1. 0 [facility] Comment on above: Performed By: #### E HANNA SHER #### [facility] [address] [place] [address] Dr. Eran Chacon PROF 14(COMP METB)on 022 Albumin [Mass/Vol] 4.0 g/dL Normal 3.4-5.0 [facility] Comment on above: Performed By: #### C MP #### [facility] [address] [place] [address] Dr. Eran Chacon Albumin/Globulin [Mass ratio] 1.2 {ratio} Normal [facility] Comment on above: Performed By: #### C MP #### [facility] [address] [place] [address] Dr. Eran Chacon ALP [Catalytic activity/Vol] 104 U/L Normal 46-116 [facility] Comment on above: Performed By: #### C MP #### [facility] [address] [place] [address] Dr. Eran Chacon ALT [Catalytic activity/Vol] 28 U/L Normal 16-63 [facility] Comment on above: Performed By: #### C MP #### [facility] [address] [place] [address] Dr. Eran Chacon Anion gap [Moles/Vol] 7.2 mmol/L Normal [facility] Comment on above: Performed By: #### C MP #### [facility] [address] [place] [address] Dr. Eran Chacon AST [Catalytic activity/Vol] 14 U/L Critically low 15-37 [facility] Comment on above: Performed By: #### C MP #### [facility] [address] [place] [address] Dr. Erna Chacon Bilirubin [Mass/Vol] 0.4 mg/dL Normal 0.2-1.0 [facility] Comment on above: Performed By: #### C MP #### [facility] [address] [place] [address] Dr. Eran Chacon Calcium [Mass/Vol] 9.0 mg/dL Normal 8.5-10.1 [facility] Comment on above: Performed By: #### C MP #### [facility] [address] [place] [address] Dr. Eran Chacon Chloride [Moles/Vol] 103 mmol/L Normal 98-107 [facility] Comment on above: Performed By: #### C MP #### [facility] [address] [place] [address] Dr. Eran Chacon CO2 [Moles/Vol] 30.0 mmol/L Normal 21.0-32.0 [facility] Comment on above: Performed By: #### C MP #### [facility] [address] [place] [address] Dr. Eran Chacon Creatinine [Mass/Vol] 0.85 mg/dL Normal 0.70-1.30 [facility] Comment on above: Performed By: #### C MP #### [facility] [address] [place] [address] Dr. Eran Chacon EGFR-AF SALVADOREAN >60 Normal >=60 [facility] Comment on above: Performed By: #### C MP #### [facility] [address] [place] [address] Dr. Eran Chacon EGFR-NON AF SALVADOREAN >60 Normal >=60 [facility] Comment on above: Performed By: #### C MP #### [facility] [address] [place] [address] Dr. Eran Chacon Globulin (S) [Mass/Vol] 3.3 g/dL Normal [facility] Comment on above: Performed By: #### C MP #### [facility] [address] [place] [address] Dr. Eran Chacon Glucose [Mass/Vol] 165 mg/dL Critically high 74-106 [facility] Comment on above: Performed By: #### C MP #### [facility] [address] [place] [address] Dr. Eran Chacon Potassium [Moles/Vol] 4.2 mmol/L Normal 3.5-5.1 [facility] Comment on above: Performed By: #### C MP #### [facility] [address] [address] [address] Eran Chacon Protein [Mass/Vol] 7.3 g/dL Normal 6.4-8.2 [facility] Comment on above: Performed By: #### C MP #### [facility] [address] [address] [address] Eran Chacon Sodium [Moles/Vol] 136 mmol/L Normal 136-145 [facility] Comment on above: Performed By: #### C MP #### [facility] [address] [place] [address] Dr. Eran Chacon Urea nitrogen [Mass/Vol] 10.0 mg/dL Normal 7.0-18.0 [facility] Comment on above: Performed By: #### C MP #### [facility] [address] [place] [address] Dr. Eran Chacon Urea nitrogen/Creatinine [Mass ratio] 11.8 mg/mg Normal [facility] Comment on above: Performed By: #### C MP #### [facility] [address] [place] [address] Dr. Eran Chacon URINE MICROSCOPIC ONLYon BACTERIA NONE SEEN Normal NONE SEEN [facility] Comment on above: Performed By: #### Med SHER UMICRO #### [facility] [address] [place] [address] Dr. Eran Chacon Bacteria identified Cx Nom (U) NOT INDICATED Normal [facility] Comment on above: Performed By: #### Med SHER UMICRO #### [facility] [address] [place] [address] Dr. Eran Chacon CAST NONE SEEN Normal NONE SEEN [facility] Comment on above: Performed By: #### Med SHER UMICRO #### [facility] [address] [place] [address] Dr. Eran Chacon Crystals LM Nom (Urine sed) NONE SEEN Normal NONE SEEN [facility] Comment on above: Performed By: #### Med SHER UMICRO #### [facility] [address] [place] [address] Dr. Eran Chacon Epithelial cells LM Ql (Urine sed) RARE Normal NONE SEEN /RARE [facility] Comment on above: Performed By: #### BISHNU BATESRO #### [facility] [address] [place] [address] Dr. Eran Chacon MUCOUS NONE SEEN Normal NONE SEEN [facility] Comment on above: Performed By: #### Med SHER UMKATHERINRO #### [facility] [address] [place] [address] Dr. Eran Chacon RBC 0-2 Normal 0-2 [facility] Comment on above: Performed By: #### BISHNU BATESRO #### [facility] [address] [place] [address] Dr. Eran Chacon WBC 2-5 Abnormal NONE SEEN [facility] Comment on above: Performed By: #### BISHNU BATESRO #### [facility] [address] [place] [address] Dr. Eran Chacon MRI SHOULDER LT WO [...] YEISON NAVAS Date: 2022-02-02 17:09 Normal [facility] XR shoulder LT min 2V*on XR shoulder LT min 2V* [facility] [place] [address] [place] [address] XRay Report Signed Patient: Nicholas Ziegler MR#: [id number] : 1960 Acct:[id number] Age/Sex: 61 / M ADM Date: 01/25/22 [place] [facility] [place]: Type: [facility] Attending Dr: Kesha Trujillo MD Ordering Provider: [...] Otilia Nunez M.D.01/25/2022 11:41 AM Dictation Location: [place] [address] Transcribed By: NATALIE 01/25/22 1141 Dictated By: Otilia Nunez MD 01/25/22 1139 Signed By: 01/25/22 1141 Normal [facility] Vital Signs Date Time Vital Sign Value Performing Clinician Facility 12-17-2023 08:54-0400 Body height 175.26 cm [facility] 12-17-2023 08:54-0400 Body mass index (BMI) [Ratio] 35.2 kg/m2 [facility] 12-17-2023 08:54-0400 Body weight 108.4 kg [facility] 12-17-2023 08:54-0400 Diastolic blood pressure 76 mm[Hg] [facility] 12-17-2023 08:54-0400 Heart rate 76 /min [facility] 12-17-2023 08:54-0400 Systolic blood pressure 154 mm[Hg] [facility] 12-05-2023 08:52-0400 Body height 175.26 cm [facility] 12-05-2023 08:52-0400 Body mass index (BMI) [Ratio] 35 kg/m2 [facility] 12-05-2023 08:52-0400 Body weight 107.67 kg [facility] 12-05-2023 08:52-0400 Diastolic blood pressure 78 mm[Hg] [facility] 12-05-2023 08:52-0400 Heart rate 69 /min [facility] 12-05-2023 08:52-0400 Systolic blood pressure 147 mm[Hg] [facility] 09-13-2023 13:30-0500 Body height 175.26 cm Hannah Magallanes Other [facility] 09-13-2023 13:30-0500 Body mass index (BMI) [Ratio] 33.22 kg/m2 Hannah Magallanes Other [facility] Other 09-13-2023 13:30-0500 Body temperature 98.4 [degF] Hannah Magallanes Other [facility] Other 09-13-2023 13:30-0500 Body weight 102.06 kg Hannah Magallanes Other [facility] [employer] Other 09-13-2023 13:30-0500 Body weight 102.05 kg [facility] 09-13-2023 13:30-0500 Diastolic blood pressure 80 mm[Hg] Hannah Magallanes Other [facility] 09-13-2023 13:30-0500 SaO2% (BldA) [Mass fraction] 93 % Hannah Magallanes Other [facility] [employer] Other 09-13-2023 13:30-0500 Systolic blood pressure 118 mm[Hg] Hannah Magallanes Other [facility] 08-13-2023 10:30-0500 Body height 175.26 cm Hannah Magallanes Other [facility] Other 08-13-2023 10:30-0500 Body mass index (BMI) [Ratio] 33.9 kg/m2 Hannah Magallanes Other [facility] Other 08-13-2023 10:30-0500 Body weight 104.15 kg Hannah Magallanes Other [facility] Other 08-13-2023 10:30-0500 Diastolic blood pressure 78 mm[Hg] Hannah Magallanes Other [facility] Other 08-13-2023 10:30-0500 Systolic blood pressure 124 mm[Hg] Hannah Magallanes Other [facility] Other 06-25-2023 08:45-0500 Body height 175.26 cm Hannah Magallanes Other [facility] Other 06-25-2023 08:45-0500 Body mass index (BMI) [Ratio] 33.37 kg/m2 Hannah Magallanes Other [facility] Other 06-25-2023 08:45-0500 Body temperature 96.5 [degF] Hannah Magallanes Other [facility] Other 06-25-2023 08:45-0500 Body weight 102.51 kg Hannah Magallanes Other [facility] Other 06-25-2023 08:45-0500 Diastolic blood pressure 85 mm[Hg] Hannah Magallanes Other [facility] Other 06-25-2023 08:45-0500 Systolic blood pressure 149 mm[Hg] Hannah Magallanes Other [facility] Other 05-28-2023 10:45-0400 Body height 175.26 cm Hannah Magallanes Other [facility] Other 05-28-2023 10:45-0400 Body mass index (BMI) [Ratio] 33.52 kg/m2 Hannah Magallanes Other [facility] Other 05-28-2023 10:45-0400 Body weight 102.97 kg Hannah Magallanes Other [facility] Other 05-28-2023 10:45-0400 Diastolic blood pressure 82 mm[Hg] Hannah Magallanes Other [facility] Other 05-28-2023 10:45-0400 Systolic blood pressure 147 mm[Hg] Hannah Magallanes Other [facility] Other 2023 08:45-0400 Body height 175.26 cm Hannah Magallanes Other [facility] Other 2023 08:45-0400 Body mass index (BMI) [Ratio] 33.52 kg/m2 Hannah Magallanes Other [facility] Other 2023 08:45-0400 Body weight 102.97 kg Hannah Magallanes Other [facility] Other 2023 08:45-0400 Diastolic blood pressure 85 mm[Hg] Hannah Magallanes Other [facility] Other 2023 08:45-0400 Systolic blood pressure 156 mm[Hg] Hannha Magallanes Other [facility] Other 04-30-2023 09:45-0400 Body height 175.26 cm Hannah Magallanes Other [facility] Other 04-30-2023 09:45-0400 Body mass index (BMI) [Ratio] 34.32 kg/m2 Hannah Magallanes Other [facility] Other 04-30-2023 09:45-0400 Body temperature 96.2 [degF] Hannah Magallanes Other [facility] Other 04-30-2023 09:45-0400 Body weight 105.42 kg Hannah Magallanes Other [facility] Other 04-30-2023 09:45-0400 Diastolic blood pressure 78 mm[Hg] Hannah Magallanes Other [facility] Other 04-30-2023 09:45-0400 Respiratory rate 16 /min Hannah Magallanes Other [facility] Other 04-30-2023 09:45-0400 Systolic blood pressure 146 mm[Hg] Hannah Magallanes Other [facility] Other 02-20-2023 09:15-0400 Body height 175.26 cm Hannah Magallanes Other [facility] Other 02-20-2023 09:15-0400 Body mass index (BMI) [Ratio] 33.46 kg/m2 Hannah Magallanes Other [facility] Other 02-20-2023 09:15-0400 Body weight 102.79 kg Hannah Magallanes Other [facility] Other 02-20-2023 09:15-0400 Diastolic blood pressure 77 mm[Hg] Hannah Magallanes Other [facility] Other 02-20-2023 09:15-0400 Systolic blood pressure 131 mm[Hg] Hannah Magallanes Other [facility] Other 01-17-2023 08:45-0400 Body height 175.26 cm Hannah Magallanes Other [facility] Other 01-17-2023 08:45-0400 Body mass index (BMI) [Ratio] 33.37 kg/m2 Hannah Magallanes Other [facility] Other 01-17-2023 08:45-0400 Body weight 102.51 kg Hannah Magallanes Other [facility] Other 01-17-2023 08:45-0400 Diastolic blood pressure 79 mm[Hg] Hannah Magallanes Other [facility] Other 01-17-2023 08:45-0400 Systolic blood pressure 128 mm[Hg] Hannah Magallanes Other [facility] Other 11-23-2022 09:30-0400 Body height 175.26 cm Hannah Magallanes Other [facility] Other 11-23-2022 09:30-0400 Body mass index (BMI) [Ratio] 33.96 kg/m2 Hannah Magallanes Other [facility] Other 11-23-2022 09:30-0400 Body weight 104.33 kg Hannah Magallanes Other [facility] Other 11-23-2022 09:30-0400 Diastolic blood pressure 72 mm[Hg] Hannah Magallanes Other [facility] Other 11-23-2022 09:30-0400 Systolic blood pressure 122 mm[Hg] Hannah Magallanes Other [facility] Other 09-04-2022 11:30-0500 Body height 175.26 cm Hannah Magallanes Other [facility] Other 09-04-2022 11:30-0500 Body mass index (BMI) [Ratio] 33.52 kg/m2 Hannah Magallanes Other [facility] Other 09-04-2022 11:30-0500 Body weight 102.97 kg Hannah Magallanes Other [facility] Other 09-04-2022 11:30-0500 Diastolic blood pressure 80 mm[Hg] Hannah Magallanes Other [facility] Other 09-04-2022 11:30-0500 SaO2% (BldA) [Mass fraction] 95 % Hannah Magallanes Other [facility] Other 09-04-2022 11:30-0500 Systolic blood pressure 122 mm[Hg] Hannah Magallanes Other [facility] Other 02-06-2022 12:45-0400 Body height 175.26 cm Kesha Olexa Other [facility] Other 02-06-2022 12:45-0400 Body mass index (BMI) [Ratio] 31.01 kg/m2 Kesha Olexa Other [facility] Other 02-06-2022 12:45-0400 Body weight 95.26 kg Kesha Olexa Other [facility] Other 05-26-2021 13:15-0400 Body height 175.26 cm Harriet Ginty Other [facility] Other 05-26-2021 13:15-0400 Body mass index (BMI) [Ratio] 31.01 kg/m2 Harriet Ginty Other [facility] Other 05-26-2021 13:15-0400 Body temperature 98.3 [degF] Harriet Ginty Other [facility] Other 05-26-2021 13:15-0400 Body weight 95.26 kg Harriet Ginty Other [facility] Other 05-26-2021 13:15-0400 SaO2% (BldA) [Mass fraction] 96 % Harriet Ginty Other [facility] Other Encounters Encounter Date Encounter Type Care Provider Facility Start: 02-03-2024 End: 02-03-2024 ambulatory Zacarias Pike MD Facility: [facility] Start: 01-20-2024 End: 01-20-2024 ambulatory Zacarias Pike MD Facility:[facility] Start: 12-17-2023 End: 12-17-2023 ambulatory [facility] Work Phone: Start: 12-17-2023 End: 12-17-2023 Patient encounter procedure [facility] Work Phone: Start: 12-05-2023 End: 12-05-2023 ambulatory [facility] Work Phone: Start: 12-05-2023 End: 12-05-2023 Patient encounter procedure [facility] Work Phone: Start: 10-23-2023 Non-patient / Non-visit [facility] Work Phone: Start: 10-08-2023 Non-patient / Non-visit [facility] Work Phone: Start: 10-07-2023 End: 10-07-2023 ambulatory BARBIE TAPIA Not Available Start: 09-18-2023 End: 09-18-2023 ambulatory Hannah Magallanes Other [facility] Other Start: 09-18-2023 Telephone encounter Hannah Magallanes [facility] Start: 09-13-2023 End: 09-13-2023 ambulatory Hannah Magallanes Other [facility] Other Start: 09-13-2023 Office outpatient vi sit 15 minutes Hannah Magallanes [facility] Start: 09-13-2023 End: 09-13-2023 Patient encounter procedure [facility]- Start: 09-11-2023 Telephone encounter Argentina coleman PT Work Phone: [facility] Comment on above: re: PT Balta (He call ed noting he had just [...] 09-10-2023 End: 09-10-2023 ambulatory Hannah Magallanes Other [facility] Other Start: 09-10-2023 Telephone encounter Hannah Magallanes [facility] Start: 09-06-2023 End: 09-06-2023 ambulatory Hannah Magallanes Other [facility] Other Start: 09-06-2023 Telephone encounter Hannah Magallanes [facility] Start: 09-02-2023 End: 09-02-2023 ambulatory HI POCOS Not Available Start: 08-20-2023 End: 08-20-2023 ambulatory Hannah Sona Other [facility] Other Start: 08-20-2023 Telephone encounter Hannah Sona [facility] Start: 08-13-2023 End: 08-13-2023 ambulatory Hannha Sona Other [facility] Other Start: 08-13-2023 Office outpatient vi sit 25 minutes Hannah Magallanes [facility] Start: 08-13-2023 Telephone encounter Hannah Sona [facility] Start: 08-06-2023 End: 08-06-2023 ambulatory Hannah Magallanes Other [facility] Other Start: 08-06-2023 Telephone encounter Hannah Sona [facility] Start: 07-29-2023 End: 07-29-2023 ambulatory HI POCOS Not Available Start: 07-22-2023 End: 07-22-2023 ambulatory Hannah Magallanes Other [facility] Other Start: 07-22-2023 Telephone encounter Hannah Sona [facility] Start: 07-19-2023 End: 07-19-2023 ambulatory Hannah Sona Other [facility] Other Start: 07-19-2023 Telephone encounter Hannah Sona [facility] Start: 07-18-2023 End: 07-18-2023 ambulatory Hannah Sona Other [facility] Other Start: 07-18-2023 Telephone encounter Hannah Sona [facility] Start: 07-02-2023 End: 07-02-2023 ambulatory Hannah Sona Other [facility] Other Start: 07-02-2023 Office outpatient vi sit 15 minutes Hannah Sona [facility] Start: 07-02-2023 Telephone encounter Hannah Magallanes [facility] Start: 06-25-2023 End: 06-25-2023 ambulatory Hannah Sona Other [facility] Other Start: 06-25-2023 Office outpatient vi sit 15 minutes Hannah Sona [facility] Start: 06-21-2023 End: 06-21-2023 ambulatory Hannah Sona Other [facility] Other Start: 06-21-2023 Encounter by edmond owen Hannah Sona [facility] Start: 06-20-2023 End: 06-20-2023 ambulatory Hannah Sona Other [facility] Other Start: 06-20-2023 Telephone encounter Hannah Magallanes [facility] Start: 06-17-2023 End: 06-17-2023 ambulatory Hannah Sona Other [facility] Other Start: 06-17-2023 Telephone encounter Hannah Magallanes [facility] Start: 06-10-2023 End: 06-10-2023 ambulatory Hannah Magallanes Other [facility] Other Start: 06-10-2023 Telephone encounter Hannah Magallanes [facility] Start: 06-03-2023 End: 06-03-2023 ambulatory Hannah Magallanes Other [facility] Other Start: 06-03-2023 Telephone encounter Hannah Magallanes [facility] Start: 05-30-2023 End: 05-31-2023 ambulatory Hi Pocos Facility:[facility] Start: 05-30-2023 End: 05-30-2023 Patient encounter procedure Hi Pocos [facility] Start: 05-28-2023 End: 05-28-2023 ambulatory Hannah Magallanes Other [facility] Other Start: 05-28-2023 Office outpatient vi sit 15 minutes Hannah Magallanes [facility] Start: 2023 End: 2023 ambulatory Hannah Magallanes Other [facility] Other Start: 2023 Office outpatient vi sit 15 minutes Hannah Magallanes [facility] Start: 05-16-2023 End: 05-16-2023 ambulatory Hannah Magallanes Other [facility] Other Start: 05-16-2023 Telephone encounter Hannah Magallanes [facility] Start: 04-30-2023 End: 04-30-2023 ambulatory Hannah Magallanes Other [facility] Other Start: 04-30-2023 Office outpatient vi sit 15 minutes Hannah Magallanes [facility] Start: 04-26-2023 End: 04-26-2023 ambulatory Hannah Magallanes Other [facility] Other Start: 04-26-2023 Telephone encounter Hannah Sona [facility] Start: 04-23-2023 End: 04-23-2023 ambulatory Hannah Sona Other [facility] Other Start: 04-23-2023 Telephone encounter Hannah Magallanes [facility] Start: 03-25-2023 End: 03-25-2023 ambulatory Hannah Magallanes Other [facility] Other Start: 03-25-2023 Telephone encounter Hannah Magallanes [facility] Start: 03-06-2023 End: 03-06-2023 ambulatory Hannah Sona Other [facility] Other Start: 03-06-2023 Telephone encounter Hannah Magallanes [facility] Start: 02-20-2023 End: 02-20-2023 ambulatory Hannah Sona Other [facility] Other Start: 02-20-2023 Office outpatient vi sit 25 minutes Hannah Sona [facility] Start: 02-05-2023 End: 02-05-2023 ambulatory Hannah Sona Other [facility] Other Start: 02-05-2023 Telephone encounter Hannah Magallanes [facility] Start: 01-21-2023 End: 01-21-2023 ambulatory Hannah Magallanes Other [facility] Other Start: 01-21-2023 Telephone encounter Hannah Sona [facility] Start: 01-17-2023 End: 01-17-2023 ambulatory Hannah Magallanes Other [facility] Other Start: 01-17-2023 Office outpatient vi sit 15 minutes Hannah Sona [facility] Start: 12-24-2022 End: 12-24-2022 ambulatory Hannah Magallanes Other [facility] Other Start: 12-24-2022 Telephone encounter Hannah Magallanes [facility] Start: 12-03-2022 End: 12-03-2022 ambulatory Hannah Magallanes Other [facility] Other Start: 12-03-2022 Telephone encounter Hannah Magallanes [facility] Start: 11-27-2022 End: 11-27-2022 ambulatory Hannah Magallanes Other [facility] Other Start: 11-27-2022 Telephone encounter Hannah Magallanes [facility] Start: 11-26-2022 End: 11-26-2022 ambulatory Hannah Magallanes Other [facility] Other Start: 11-26-2022 Telephone encounter Hannah Magallanes [facility] Start: 11-24-2022 End: 11-25-[address] HANNAH MAGALLANES Facility:[facility] Start: 11-23-2022 End: 11-23-2022 ambulatory Hannah Magallanes Other [facility] Other Start: 11-23-2022 Office outpatient vi sit 15 minutes Hannah Magallanes [facility] Start: 11-05-2022 End: 11-05-2022 ambulatory Hannah Magallanes Other [facility] Other Start: 11-05-2022 Telephone encounter Hannah Magallanes [facility] Start: 10-03-2022 End: 10-03-2022 ambulatory Hannah Magallanes Other [facility] Other Start: 10-03-2022 Telephone encounter Hannah Magallanes [facility] Start: 09-04-2022 End: 09-04-2022 ambulatory Hannah Magallanes Other [facility] Other Start: 09-04-2022 Office outpatient vi sit 25 minutes Hannah Magallanes [facility] Start: 07-26-[address] HANNAH MAGALLANES Facil ity:[facility] Start: 07-19-2022 End: 07-20-[address] WILFREDO ENGLE Facility:[facility] Start: 06-07-2022 End: 06-07-[address] HANNAH MAGALLANES Facility:[facility] Start: 03-15-2022 ambulatory KESHA TRUJILLO Facility:[facility] Start: 02-06-2022 End: 02-06-2022 ambulatory Kesha Sharmamartin Other [facility] [employer] Other Start: 02-06-2022 Office outpatient vi sit 25 minutes Kesha Ronnie [facility] Start: 02-02-2022 End: 02-03-2022 ambulatory KESHA RONNIE Facility:[facility] Start: 12-28-2021 End: 12-28-[address] HANNAH MAGALLANES Facility:[facility] Start: 12-12-2021 End: 12-13-2021 ambulatory KESHA RONNIE [facility] [employer] Other Start: 12-12-2021 Office outpatient ne w 30 minutes Kesha Trujillo [facility] [place] Start: 05-26-2021 Office outpatient vi sit 15 [...] [facility] [address] [place] [address] Barbie Tapia DO [address] [place] [address] [facility] Pelvis and Hip - bilateral Views [facility] Immunizations Immunization Date Immunization Notes Care Provider Fa cility 06-02-2018 Influenza, injectabl e, Madin [place] Canine Kidney, preservative free, quadrivalent Argentina Clinton PT Work Phone: [facility] 05-17-2017 influenza virus vaccine, split virus (incl. purified surface antigen) Hannah Magallanes Other [facility] Other 05-17-2017 influenza virus vaccine, unspecified formulation [facility] 05-16-2017 influenza, injectabl e, quadrivalent, preservative free Argentina Clinton PT Work Phone: [facility] 06-28-2016 influenza, injectabl e, quadrivalent, preservative free Argentina Clinton PT Work Phone: [facility] 06-28-2016 tetanus and diphther ia toxoids, adsorbed, preservative free, for adult use (5 Lf of tetanus toxoid and 2 Lf of diphtheria toxoid) Hannah Magallanes Other [facility] 05-25-2015 influenza, seasonal, injectable, preservative free Argentina Clinton PT Work Phone: [facility] 05-25-2015 tetanus and diphther ia toxoids, adsorbed, preservative free, for adult use (5 Lf of tetanus toxoid and 2 Lf of diphtheria toxoid) Hannah Magallanes Other [facility] 06-15-1999 pneumococcal conjuga te vaccine, 7 valent Argentina Clinton PT Work Phone: [facility] Payers Date Payer Category Payer Medicaid [id number] 2013 Medicare [id number] 1960 Unknown [id number] 2.16.84 [id number] 1960 Unknown [id number] 2.16.84 0.1.496697.3.579.2.593 1960 Unknown [id number] 2.16.84 0.1.965647.3.579.2.593 1960 Unknown [id number] 2.16.84 0.1.636878.3.579.2.593 1960 Unknown [id number] 2.16.84 0.1.379724.3.579.2.593 1960 Unknown [id number] 2.16.84 0.1.280180.3.579.2.593 1960 Unknown [id number] 2.16.84 0.1.484301.3.579.2.593 1960 Unknown [id number] 2.16.84 0.1.999093.3.579.2.593 1960 Unknown [id number] 2.16.8 40.1.679394.3.579.2.727 1960 Unknown [id number] 2.16.84 0.1.605733.3.579.2.1259 1960 Unknown [id number] 2.16.84 0.1.538566.3.579.2.1259 1960 Unknown [id number] 2.16.84 0.1.616397.3.579.2.1259 1960 Unknown [id number] 2.16.840 .1.858458.3.579.2.1259 1960 Unknown [id number] 2.16. [id number] 1960 Unknown [id number] 2.16. [id number] 1959 Medicaid [id number] 2. [id number] 1959 Medicare [id number] 2.1 [id number] Self-pay Self Pay [id number] Social History Date Type Detail Facility Start: 09-02-2023 Sex Assigned At [facility] Tobacco smoking status No Smokin g Status Entered [facility] Start: 03-27-2023 Tobacco smoking status NHIS Smokes tobacco daily [facility] Work Phone: History of tobacco use Cigarette Smoker N [facility] Start: 03-27-2023 End: 09-02-2023 Cigarettes smoked current (pack per day) - Reported 0.5 [facility] Start: 03-27-2023 Tobacco use and exposure Smokeless tobacco non-user [facility] Start: 09-02-2023 Alcohol intake Lifetime non-drinker (finding) [facility] Start: 03-27-2023 Alcohol Comment Caffine- Soda [facility] Start: 1960 Sex Assigned At Male [facility] Start: 08-21-2023 Gender identity Identifies as male gender (finding) [facility] Start: 08-21-2023 Sexual orientation Heterosexual (finding) [facility] Start: 02-06-2017 Tobacco smoking status NHIS Ex-smoker (finding) [facility] Medical Equipment Procedure Code Equipment Code Equipment Original Text Equi pment Identifier Dates Accu-Chek FastClix Lancet - Clinical Notes 05-26-2021 to 10-02-2023 Telephone Encounter - Maris Tavera - 10/02/2023 1:35 PM ESTTelephone Encounter - [place] Liang - 10/02/2023 1:35 PM EST Note Date & Type Note Facility 10-02-2023 Telephone encounter Note Form atting of this note might be different from the original. No attempts to hear back; closing referral. [facility] 10-02-2023 Miscellaneous Notes Formattin g of this note might be different from the original. No attempts to hear back; closing referral. documented in this encounter [facility] 09-13-2023 Evaluation note Encounter Date Diagnosis Assessment Notes Aug, Chronic obstructive pulmonary disease, unspecified (ICD-10 - J44.9) Finish antibiotics and prednisone as prescribed. Denies pulmonary referral at this time. Hasn't smoked since 09/08 and declines chantix or patches. Aug, Current smoker (ICD-10 - F17.200) [facility] Other 01-23-2024 Evaluation note* Encounter Date Diagnosis Assessment Notes Treatment Notes Treatment Clinical Notes Aug, Lumbar radicular pain (ICD-10 - M54.16) [facility] Other 01-19-2024 Evaluation note* Encounter Date Diagnosis Assessment Notes Treatment Notes Treatment Clinical Notes Aug, Lumbar radicular pain (ICD-10 - M54.16) [facility] Other 12-26-2023 Evaluation note* Encounter Date Diagnosis Assessment Notes Treatment Notes Treatment Clinical Notes Jul, Type 2 diabetes mellitus with hyperglycemia, without long-term current use of insulin (ICD-10 - E11.65) [facility] Other 12-26-2023 Evaluation note* Encounter Date Diagnosis [...] T3s after shoulder pain has improved post-operatively. [facility] Other 12-04-2023 Evaluation note* Encounter Date Diagnosis Assessment Notes Treatment Notes Treatment Clinical Notes Jul, Type 2 diabetes mellitus with hyperglycemia, without long-term current use of insulin (ICD-10 - E11.65) [facility] Other 12-01-2023 Evaluation note* Encounter Date Diagnosis Assessment Notes Treatment Notes Treatment Clinical Notes Jul, Type 2 diabetes mellitus with hyperglycemia, without long-term current use of insulin (ICD-10 - E11.65) [facility] Other 11-30-2023 Evaluation note* Encounter Date Diagnosis Assessment Notes Treatment Notes Treatment Clinical Notes Jun, Labral tear of shoulder, right, subsequent encounter (ICD-10 - S43.431D) [facility] Other 11-14-2023 Evaluation note* Encounter Date Diagnosis [...] pain (ICD-10 - R07.9) r/o cardiac cause [facility] Other 11-07-2023 Evaluation note* Encounter Date Diagnosis [...] to decrease dose and possibly discontinue medication. [facility] Other 11-02-2023 Evaluation note* Encounter Date Diagnosis Assessment Notes Treatment Notes Treatment Clinical Notes Jun, Acute pain of right shoulder (ICD-10 - M25.511) [facility] Other 10-30-2023 Evaluation note* Encounter Date Diagnosis Assessment Notes Treatment Notes Treatment Clinical Notes May, Acute pain of right shoulder (ICD-10 - M25.511) [facility] Other 10-23-2023 Evaluation note* Encounter Date Diagnosis Assessment Notes Treatment Notes Treatment Clinical Notes May, Acute pain of right shoulder (ICD-10 - M25.511) [facility] Other 10-16-2023 Evaluation note* Encounter Date Diagnosis Assessment Notes Treatment Notes Treatment Clinical Notes May, Acute pain of right shoulder (ICD-10 - M25.511) [facility] Other 10-10-2023 Evaluation note* Encounter Date Diagnosis Assessment Notes Treatment Notes Treatment Clinical Notes May, Acute pain of right shoulder (ICD-10 - M25.511) MRI and surgery planning pending. Pt understands this is a controlled substance and to call in 1 week w update on treatment plan. May, Bronchitis (ICD-10 - J40) Finish antibiotic, rest, hydrate Steroids for wheezing. [facility] Other 10-04-2023 Evaluation note* Encounter Date Diagnosis Assessment Notes Treatment Notes Treatment Clinical Notes May, Acute pain of right shoulder (ICD-10 - M25.511) Reviewed [place] and discussed short term plan of increase in pain medication. He is due for a refill of the T3s presently. Stop them, replace w norco. Pt understands weekly prescription and will need to d/c after anticipated surgery. [facility] Other 09-12-2023 Evaluation note* Encounter Date Diagnosis [...] office and the ER visit on 04/26 [facility] Other 07-05-2023 Evaluation note* Encounter Date Diagnosis Assessment Notes Treatment Notes Treatment Clinical Notes Feb, Epigastric abdominal pain (ICD-10 - R10.13) Referral Dr. Maritnez Feb, Other elevated white blood cell (WBC) [...] and will need less prn pain med. [facility] Other 06-01-2023 Evaluation note* Encounter Date Diagnosis [...] left shoulder (ICD-10 - M25.512) as above. [facility] Other 04-17-2023 Evaluation note* Encounter Date Diagnosis Assessment Notes Treatment Notes Treatment Clinical Notes Nov, Bronchitis (ICD-10 - J40) [facility] Other 04-11-2023 Evaluation note* Encounter Date Diagnosis Assessment Notes Treatment Notes Treatment Clinical Notes Nov, Disc degeneration, lumbar (ICD-10 - M51.36) Nov, Lumbar radicular pain (ICD-10 - M54.16) [employer] Other 04-07-2023 Evaluation note* Encounter Date Diagnosis [...] quit smoking. Pt verbalizes understanding and agreement. [facility] Other 02-15-2023 Evaluation note* Encounter Date Diagnosis Assessment Notes Treatment Notes Treatment Clinical Notes Sep, Lumbar radicular pain (ICD-10 - M54.16) [facility] Other 01-17-2023 Evaluation note* Encounter Date Diagnosis [...] is outlined on the test result page. [employer] Other 10-20-2022 NoteIndication: Calculus in kidney. 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 [employer] Other 04-26-2022 NotePROCEDURE: XR SHOULDER LT 2V or > COMPARISON: None. HISTORY: Pain of left shoulder joint FINDINGS: BONES:No acute fracture or dislocation. 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 No visible soft tissue swelling. EFFUSION:None visible. OTHER: Negative. IMPRESSION: Mild osteoarthritis Electronically authenticated by: BARBIE MEMBRENO Date: 2021-12-12 15:25[facility] Encounter Date Diagnosis Assessment [...] worsen and enlarge with time A 1/1cc riaz / felicitas cortisone injection was performed into the subacromial space under sterile technique. Patient tolerated the injection well with no adverse reaction. Nov, Tendinopathy of left shoulder (ICD-10 - M67.912) Nov, Acute pain of left shoulder (ICD-10 - M25.512) [facility] [employer] Other 10-08-2021 Evaluation note* Encounter Date Diagnosis [...] as needed for cough. Advised patient that [place] contains antihistamine and cough suppressant and to be cautious using other OTC cold medications. Patient to follow up with PCP if symptoms do not improve. Immediate eval if SOB, difficulty breathing, chest pain, dizziness, or other concerning symptoms. Patient verbalizes understanding and is agreeable to treatment plan [facility] [employer] Other Evaluation + Plan note No data available for this section [facility] noteNo InformationNortHelen [facility]. 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 Surgical History carpal tunnel release 2016 Surgical History tonsillectomy Hospitalization History 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 Hospitalization History pneumonia [facility] [employer] Other Hospital Discharge instructions No data available for this section [facility] No data available for this section [facility] Summary Purpose Family History No Family [...] 1 Epigastric abdominal pain (R10.13) Referral Organization [facility] [employer] Referring Provider First Name Hannah Referring Provider Last Name Sona Referring Provider Specialty [facility] [employer] Referred Organization [facility] Referred Provider Sai Martinez Referred Address ,[place], [place],[address] Referred Provider Specialty Surgery Referral Priority Routine General Notes Es Camilo 11:38:02 AM >received today, attachments made, notes locked, referral faxed Reason 01/28/23 Access Or tho - B shoulder pain L>R - hopes for injections. Diagnosis 1 Pain in right should er (M25.511) Referral Organization [facility] omar Referring Provider First Name Hannah Referring Provider Last Name Sona Referring Provider Specialty [facility] [employer] Referred Organization [facility] Referred Provider Barbie Tapia Referred Address ,[place], [place],[address] Referred Provider Specialty Orthopaedic Surgery Referral Priority [...] in right should er (M25.511) Referral Organization [facility] Referring Provider First Name Hannah Referring Provider Last Name Sona Referring Provider Specialty [facility] [employer] Referred Organization [facility] Referred Provider Barbie Tapia Referred Address ,[place], [place],[address] Referred Provider Specialty Orthopaedic Surgery Referral Priority Routine General Notes Razafaithjaved Es 03:00:30 PM >received today, notes note locked, will fax when done Razafaithjaved Es 01/21/2023 10:35:11 AM >sent TE to have [...] content) DATE CREATED AUTHOR 02/10/2022 [facility] DATE CREATED AUTHOR AUTHOR'S ORGANIZ ATION 12/04/2022 [facility] DATE CREATED AUTHOR AUTHOR'S ORGANIZ ATION 06/01/2023 [facility] DATE CREATED AUTHOR AUTHOR'S ORGANIZ ATION 10/07/2023 [facility] DATE CREATED AUTHOR AUTHOR'S ORGANIZ ATION 02/09/2024 [facility] Patient Care team informatio n (unrecognized [...] December 17, 2023 End: 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 [facility] [employer] [facility]. provides no warranty or guarantee of the accuracy or completeness of information in this document.
--- NOTE | 2024-02-13 07:55 | PM.CN ---
Consult Note: HPI Data of Consult Patient: known to practice within the last 3 years Consult date: 12/26/23 Requesting Physician: Janneth Villalta NP Primary Care Provider: Hannah Gallo MD Consult Narrative Reason for consult: f/u Narrative: Nicholas Ziegler a pleasant 63 year old male with an extensive history of chronic low back pain post lumbar surgery in 1984, left l4 hemilaminectomy according to MRI. Patient also has a significant history of bilateral hip and groin pain. Patient rating low back and bilateral hip pain 5/10 sharp ache, increasing to 10/10 with twisting pushing pulling standing too long transitioning walking activity stairs, pain improved slightly when lying in recliner. Patient has failed to benefit from tylenol, allergy to NSAIDs, failed oxycodone-acetaminophen 5-325mgs, hydrocodone-acetaminophen 10mgs, tylenol #3 1-2 tabs TID, gabapentin unknown dosage. . Patient has failed to benefit from PT and HEP greater than 6 weeks, increases his pain. Previously a patient at [facility] receiving epidurals q2 months for 7 years per patient, last MAGAN 07/11 with benefit. Recently completed updated xrays and MRI of lumbar spine, results below. Patient most recently underwent bilateral L4-5 TFESI and bilateral SIJ with >80% improvement in neurogenic claudication symptoms, no improvement from bilateral SIJ injection per pt. Continues to have moderate to severe axial low back pain. cc:: CC: Janneth Villalta NP Review of Systems ROS Status of ROS 10 or more systems reviewed and unremarkable except as noted in history and below Musculoskeletal Reports: back pain and joint pain PFSH PFSH Medical History (Updated 02/13/24 @ 08:04 by Janneth Villalta NP) Tobacco user ?Z72.0 - Tobacco use (ICD-10) Type 2 diabetes mellitus with hyperglycemia ?E11.65 - Type 2 diabetes mellitus with hyperglycemia (ICD-10) Acute exacerbation of chronic obstructive pulmonary disease (COPD) ?J44.1 - Chronic obstructive pulmonary disease with (acute) exacerbation (ICD-10) Lumbar degenerative disc disease ?M51.36 - Other intervertebral disc degeneration, lumbar region (ICD-10) Influenza ?J11.1 - Influenza due to unidentified influenza virus with other respiratory manifestations (ICD-10) Acute bronchospasm ?J98.01 - Acute bronchospasm (ICD-10) Postoperative pain, acute, shoulder ?G89.18 - Other acute postprocedural pain (ICD-10) ?M25.519 - Pain in unspecified shoulder (ICD-10) Fever ?R50.9 - Fever, unspecified (ICD-10) Acute pain of right shoulder ?M25.511 - Pain in right shoulder (ICD-10) Rotator cuff arthropathy of right shoulder ?M12.811 - Other specific arthropathies, not elsewhere classified, right shoulder (ICD-10) Diabetes ?E11.9 - Type 2 diabetes mellitus without complications (ICD-10) COPD (chronic obstructive pulmonary disease) ?J44.9 - Chronic obstructive pulmonary disease, unspecified (ICD-10) Surgical History S/P right rotator cuff repair ?Z98.890 - Other specified postprocedural states (ICD-10) Social History Within the past year, how often did you have a drink containing alcohol: never Score interpretation: A score less than 4 is consistent with normal alcohol consumption. 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 Little interest or pleasure in doing things: not at all Feeling down, depressed, or hopeless: not at all Feel stressed/tense/nervous/anxious/difficulty sleeping: not at all Do you think of yourself as: straight/heterosexual Gender Identity: male Meds Home Medications and Allergies Home Medications ?Medication ?Instructions ?Recorded ?Confirmed ?Type glipizide 5 mg-metformin 500 mg 1 tab PO DAILY 08/23/23 02/03/24 History tablet lancets (Accu-Chek Fastclix Lancet 09/08/23 09/08/23 History Drum) acetaminophen 300 mg-codeine 30 mg 2 tab PO TID PRN pain #180 tabs 01/02/24 02/03/24 Rx tablet naloxone 4 mg/actuation nasal 4 mg intranasal Q3M PRN opioid 01/02/24 02/03/24 Rx spray (Narcan) overdose #2 ea Allergies Allergy/AdvReac Type Severity Reaction Status Date / Time fentanyl Allergy Intermediate Hives Verified 01/20/24 09:05 ofloxacin Allergy Intermediate HIVES Verified 01/20/24 09:05 olodaterol Allergy Intermediate SHORTNESS Verified 01/20/24 09:05 [From Stiolto Respimat] OF BREATH tiotropium Allergy Intermediate SHORTNESS Verified 01/20/24 09:05 [From Stiolto Respimat] OF BREATH zafirlukast Allergy Intermediate Hives Verified 01/20/24 09:05 ibuprofen [From Motrin] AdvReac Mild Verified 01/20/24 09:05 IV dye Allergy Uncoded 01/20/24 09:05 Exam Constitutional Documenting provider has reviewed patient's vital signs: yes Common normals: no apparent distress, oriented x3, healthy appearing, alert and well nourished General appearance: cooperative HENMT Common normals: normocephalic, hearing grossly normal bilaterally and moist oral mucous membranes Head and scalp: normocephalic Eye Common normals: PERRL Pupil: PERRL Neck & C-Spine Common normals: full ROM General: normal visual inspection Chest Common normals: inspection of chest normal Respiratory Common normals: normal respiratory effort, no retractions and no use of accessory muscles Back & Pelvis Lumbar spine/lower back: ROM limited, pain with ROM, lumbar spinal tenderness and straight leg raise negative bilaterally Sacroiliac joints: SI joint(s) abnormal Other: right positive hailee(patricks), gaenslens, thigh thrust, compression test sensation in bilateral LE intact, strength 5/5 improved from prior positive facet loading Extremity Common normals: normal to inspection and full ROM Right lower extremity: hip joint Left lower extremity: hip joint Other: significant increase in hip/groin pain with internal and external rotation of bilateral hips, right greater than left Neuro Common normals: oriented x3, CN's II-XII intact bilaterally, moves all extremities, no focal motor deficits, no sensory deficits noted and deep tendon reflexes 2+ bilaterally Sensorium/orientation: alert Gait (neuro): antalgic Motor exam: strength 5/5 throughout and no movement abnormalities noted Psych Common normals: mental status grossly normal, thought process normal, cooperative, affect normal, speech normal and activity/motor behavior normal Speech: normal speech Thought process: normal thought process Results Imaging Lumbar MRI: Attestation: I have reviewed the pertinent imaging results. Radiologist's impression: 12-L1: No significant disc/facet abnormality, spinal stenosis, or foraminal stenosis. L1-L2: No significant disc/facet abnormality, spinal stenosis, or foraminal stenosis. L2-L3: No significant disc/facet abnormality, spinal stenosis, or foraminal stenosis. L3-L4: No significant disc/facet abnormality, spinal stenosis, or foraminal stenosis. L4-L5: Moderate disc space narrowing and disc desiccation with endplate sclerosis. Mild diffuse disc/osteophyte complex. Left L4 hemilaminotomy. Moderate bilateral facet osteoarthropathy. No central canal stenosis. Mild bilateral foraminal stenosis. L5-S1: Disc space narrowing. No disc bulge or herniation. No central or foraminal stenosis bilateral hip xray: Attestation: I have reviewed the pertinent imaging results. Radiologist's impression: Mild OA bilateral hips Lumbar Xray: Attestation: I have reviewed the pertinent imaging results. Radiologist's impression: BONES: Neutral projection is normal alignment with no acute fracture or spondylolisthesis. Minimal degenerative spondylosis. Moderate to severe facet osteoarthropathy most significant L4-L5 DISC SPACES: Multilevel disc space narrowing most significant L4-5 PARASPINOUS: Negative. No paraspinous abnormality is seen. OTHER: No transient spondylolisthesis with flexion or extension Additional Findings Additional findings: If on a controlled substance or opioids, I have checked an [place]AR[place] report on this patient and there are no aberrancies noted in the prescribing history.??If on a controlled substance or opioid a drug screen was completed and reviewed within the last year, and if there has not been a drug screen completed we ordered one today to monitor higher risk, state monitored pain medication use. As part of providing excellent, safe, comprehensive care, the following was completed at our patient's visit: 1. A medication reconciliation and review to ensure accurate knowledge of current/active medications, including asking our patients to inform us about any [id number] medications or herbal remedies/nutritional supplements/alternative remedies. 2. A review to specifically ensure our patients have had annual screening for screening for depression, screening for tobacco use, and screening for unhealthy alcohol use. For concerning screenings had a discussion with the patient, provided patient education, and recommended follow-up with primary care provider when appropriate. If patient noted with a risk of falling, they received education on strength, gait, and balance training to prevent future risk of falling. Assessment and Plan Assessment and Plan (1) Lumbar spondylosis: (2) Lumbar stenosis with neurogenic claudication: (3) Sacroiliitis: (4) Bilateral primary osteoarthritis of hip: (5) Failed back syndrome: (6) Bilateral hip pain: (7) Chronic prescription opiate use: Assessment and Plan: functional goals: care for self, care for brother, complete housework and take care of the yard, improve pain I feel these medications are improving the patient's quality of life and allow them to tolerate activities of daily living as well as participate in recreational activity.? The patient does not report intolerable side effects. The patient is NOT opioid naive and non-pharmacologic and non-opioid treatment has failed to significantly relieve the patient's pain and improve functionality. The patient has a diagnosis that is related to a somatic or visceral pain etiology. ? ?? I reviewed with the patient the potential risks and side effects with the use of? opioid medications including but not limited to respiratory depression,? sedation, and even . I verified the patient has access to naloxone should? these effects occur. I advised the patient to avoid the use of any other? sedation substances including alcohol, THC, and benzodiazepines while? taking opioid medications due to the risk of compounding side effects and? detrimental outcomes. I reviewed the DENTAL TECHNICIAN METAL, pain treatment agreement, urine? drug screen, and opioid start talking forms. The patient was advised to let? their family know they had Naloxone in case they would need to administer? the medication.? ?? A drug screen was completed within the last year, and no aberrancies were noted regarding their use of controlled substances. The patient understands they are subject to the terms and conditions of the pain contract that they have signed. ? ?? I have checked an OARRS report on this patient today and there are no aberrancies noted in the prescribing history.? (8) Chronic pain syndrome: Plan bilateral L4-5 L5-S1 facet medial branch block x2 working towards thermal RFA, to be completed under fluoroscopy, risks vs benefits reviewed continue tylenol #3 1-2 tabs TID PRN 30 day supply, plan to wean after injection therapy narcan discussed and prescribed last visit encouraged to utilize tizanidine from PCP more often for myofascial pain f/u after each injection
== END 2024-02-13 07:42 | disposition home or self-care (01) ==
LOC: PM 07:42
PROVIDERS: PCP Family Medicine; Visit Provider Nurse Practitioner
DX: M47.816 Spondylosis without myelopathy or radiculopathy, lumbar region (principal); M48.062 Spinal stenosis, lumbar region with neurogenic claudication; M46.1 Sacroiliitis, not elsewhere classified; M16.0 Bilateral primary osteoarthritis of hip; M96.1 Postlaminectomy syndrome, not elsewhere classified; M25.552 Pain in left hip; M25.551 Pain in right hip; Z79.899 Other long term (current) drug therapy
CPT/HCPCS: G0463

== ENCOUNTER 2024-02-24 08:25 | Day surgery (SDC) | payer MEDICARE, MEDICAID, SELFPAY ==
[2024-02-24 08:36] VITALS: BP 137/77; PULSE 65; TEMP 36.2; O2SAT 96
--- OUTSIDE RECORDS SUMMARY | 2024-02-24 08:37 | XMS_ITS ---
Patient Summarization (C-CDA 2.1 CCD) Created on: February 24, 2024 Nicholas Ziegler : 1960 Sex: Male Author Organization Sample organization Care Team Providers Care Film Reader Name Role Phone Kesha Trujillo Unavailable Harriet Mo Unavailable Hannah Magallanes Unavailable SONA, DR HANNAH Jovel Admitting Unavailable MAGALLANES, DR HANNAH Jovel Attending Unavailable MAGALLANES, DR HANNAH Jovel Primary Care Unavailable MAGALLANES, DR HANNAH Jovel Consulting Unavailable TAVERASRUBI Consulting Unavailable OLEXA, KESHA Admitting Unavailable OLEXA, KESHA Attending Unavailable MAGALLANES, DR HANNAH Jovel Primary Care Unavailable J[place], DR BARBIE Goldberg Consulting Unavailable OLEXA, KESHA Consulting Unavailable OLEXA, KESHA Admitting Unavailable OLEXA, KESHA Attending Unavailable MAGALLANES, DR HANNAH Jovel Primary Care Unavailable MAGALLANES, DR HANNAH Jovel Referring Unavailable ZIEBLORI, DR YEISON Drummond Consulting Unavailable OLEXA, KESHA Consulting Unavailable BALL, DR VILLALOBOS Admitting Unavailable BALL, DR VILLALOBOS Attending Unavailable MAGALLANES, DR HANNAH Jovel Primary Care Unavailable BALL, DR IVLLALOBOS Consulting Unavailable ZIEBER, DR YEISON Drummond Consulting [...] BREE, DR CARLOS Drummond Consulting Unavailable MILLIE, HOSSATimothy Consulting Unavailable HANNAH MAGALLANES Primary Care Physician [phone] Barbie Jesus Referring Unavailable Pocdoron, Barbie Tellez Attending Unavailable PocBarbie cortes Admitting Unavailable Hannah Magallanes MD Primary Care Provider POCDORON, BARBIE Tellez Attending Unavailable POCDORON, BARBIE Tellez Referring Unavailable POCDORON, BARBIE Tellez Attending Unavailable POCOS, BARBIE Tellez Attending Unavailable Shahzad JACOB, Zacarias Miranda Attending Unavailable Shahzad JACOB, Zacarias Miranda Attending Unavailable Allergies Allergy Classification Reported Allergen(s) Allergy Type Date of Onset Reaction(s) Facility (20 sources) Ibuprofen Drug Allergy [facility] [employer] Other (20 sources) olodaterol / tiotropium Drug Allergy shortness of breath [facility] [employer] Other (20 sources) CT Scan dye Propensity to adverse reactions [facility] [employer] Other (4 sources) Ibuprofen Drug Allergy 08-19-18 80 [facility] Repository (2 sources) Iodine (And Iodine Containting Drugs) Drug allergy (disorder) 09-07-19 16 [facility] Repository (1 source) NSAIDs Drug allergy (disorder) [facility] Repository (20 sources) fentaNYL Drug Allergy 12-05-19 24 Unknown, [facility] (4 sources) Ibuprofen Drug Allergy 01-15-20 15 [facility] (20 sources) Ofloxacin Drug Allergy 12-05-19 24 Unknown, [facility] (3 sources) zafirlukast Drug Allergy 01-15-20 15 Unknown [facility] [employer] Other (20 sources) Zafirlukast *ANTIASTHMATIC AND BRONCHODILATOR AGEN Propensity to adverse reactions Unknown [facility] [employer] Other (20 sources) Ibuprofen & Diet Manage Prod *ANALGESICS - ANTI-IN Propensity to adverse reactions Unknown [facility] [employer] Other (3 sources) Allergies Reconciled Propensity to adverse reactions Unknown [facility] Other (20 sources) Iodinated contrast media (substance) Drug allergy 06-03-20 19 Rash [facility] [employer] Other (3 sources) patient allergy list reviewed by nurse or physicia Propensity to adverse reactions 10-05-19 16 Comment:Done [facility] Other (2 sources) olodaterol Drug Allergy 12-05-19 24 shortness of breath [facility] (2 sources) tiotropium Drug Allergy 12-05-19 24 shortness of breath [facility] (2 sources) Iodinated Contrast Media Allergy to substance 12-05-19 [facility] (2 sources) Ibuprofen & Diet Manage Prod * Allergy to substance 12-04-19 [facility] (2 sources) Zafirlukast *ANTIASTHMATIC AND Allergy to substance 12-04-19 [facility] Encounters Encounter Date Encounter Type Care Provider Facility Start: 02-03-2024 End: 02-03-2024 ambulatory Zacarias Pike MD Facility:[facility] Start: 01-20-2024 End: 01-20-2024 ambulatory Zacarias Pike MD Facility:[facility] Start: 12-17-2023 End: 12-17-2023 ambulatory [facility] Work Phone: Start: 12-17-2023 End: 12-17-2023 Patient encounter procedure [facility] Physician [facility] Work Phone: Start: 12-05-2023 End: 12-05-2023 ambulatory [facility] Work Phone: Start: 12-05-2023 End: 12-05-2023 Patient encounter procedure [facility] Work Phone: Start: 10-23-2023 Non-patient / Non-visit [facility] Work Phone: Start: 10-08-2023 Non-patient / Non-visit [facility] Physician [facility] Work Phone: Start: 10-07-2023 End: 10-07-2023 ambulatory BARBIE CHILDERSOS Not Available Start: 09-18-2023 End: 09-18-2023 ambulatory Hannah Magallanes Other [facility] Other Start: 09-18-2023 Telephone encounter Hannah Magallanes [facility] Start: 09-13-2023 End: 09-13-2023 ambulatory Hannah Magallanes Other [facility] Other Start: 09-13-2023 Office outpatient vi sit 15 minutes Hannah Magallanes [facility] Start: 09-13-2023 End: 09-13-2023 Patient encounter procedure [facility]- Start: 09-11-2023 Telephone encounter Argentina coleman PT [...] 09-10-2023 End: 09-10-2023 ambulatory Hannah Magallanes Other [facility] Other Start: 09-10-2023 Telephone encounter Hannah Magallanes [facility] Start: 09-06-2023 End: 09-06-2023 ambulatory Hannah Magallanes Other [facility] Other Start: 09-06-2023 Telephone encounter Hannah Magallanes [facility] Start: 09-02-2023 End: 09-02-2023 ambulatory BARBIE Tellez POCOS Not Available Start: 08-20-2023 End: 08-20-2023 ambulatory Hannah Magallanes Other [facility] Other Start: 08-20-2023 Telephone encounter Hannah Magallanes [facility] Start: 08-13-2023 End: 08-13-2023 ambulatory Hannah Magallanes Other [facility] Other Start: 08-13-2023 Office outpatient vi sit 25 minutes Hannah Magallanes [facility] Start: 08-13-2023 Telephone encounter Hannah Magallanes [facility] Start: 08-06-2023 End: 08-06-2023 ambulatory Hannah Sona Other [facility] Other Start: 08-06-2023 Telephone encounter Hannah Magallanes [facility] Start: 07-29-2023 End: 07-29-2023 ambulatory BARBIE Tellez POCOS Not Available Start: 07-22-2023 End: 07-22-2023 ambulatory Hannah Sona Other [facility] Other Start: 07-22-2023 Telephone encounter Hannah Sona [facility] Start: 07-19-2023 End: 07-19-2023 ambulatory Hannah Sona Other [facility] Other Start: 07-19-2023 Telephone encounter Hannah Magallanes [facility] Start: 07-18-2023 End: 07-18-2023 ambulatory Hannah Sona Other [facility] Other Start: 07-18-2023 Telephone encounter Hannah Magallanes [facility] Start: 07-02-2023 End: 07-02-2023 ambulatory Hannah Sona Other [facility] Other Start: 07-02-2023 Office outpatient vi sit 15 minutes Hannah Magallanes [facility] Start: 07-02-2023 Telephone encounter Hannah Magallanes [facility] Start: 06-25-2023 End: 06-25-2023 ambulatory Hannah Magallanes Other [facility] Other Start: 06-25-2023 Office outpatient vi sit 15 minutes Hannah Magallanes [facility] Start: 06-21-2023 End: 06-21-2023 ambulatory Hannah Magallanes Other [facility] Other Start: 06-21-2023 Encounter by edmond owen Hannah Sona [facility] Start: 06-20-2023 End: 06-20-2023 ambulatory Hannah Magallanes Other [facility] Other Start: 06-20-2023 Telephone encounter Hannah Magallanes [facility] Start: 06-17-2023 End: 06-17-2023 ambulatory Hannah Magallanes Other [facility] Other Start: 06-17-2023 Telephone encounter Hannah Magallanes [facility] Start: 06-10-2023 End: 06-10-2023 ambulatory Hannah Magallanes Other [facility] Other Start: 06-10-2023 Telephone encounter Hannah Sona [facility] Start: 06-03-2023 End: 06-03-2023 ambulatory Hannah Magallanes Other [facility] Other Start: 06-03-2023 Telephone encounter Hannah Magallanes [facility] Start: 05-30-2023 End: 05-31-2023 ambulatory Hi Pocos Facility[place] Start: 05-30-2023 End: 05-30-2023 Patient encounter procedure Barbie Jesus [facility] Start: 05-28-2023 End: 05-28-2023 ambulatory Hannah Magallanes Other [facility] Other Start: 05-28-2023 Office outpatient vi sit 15 minutes Hannah Sona [facility] Start: 2023 End: 2023 ambulatory Hannah Mgaallanes Other [facility] Other Start: 2023 Office outpatient vi sit 15 minutes Hannah Sona [facility] Start: 05-16-2023 End: 05-16-2023 ambulatory Hannah Magallanes Other [facility] Other Start: 05-16-2023 Telephone encounter Hannah Magallanes [facility] Start: 04-30-2023 End: 04-30-2023 ambulatory Hannah Magallanes Other [facility] Other Start: 04-30-2023 Office outpatient vi sit 15 minutes Hannah Magallanes [facility] Start: 04-26-2023 End: 04-26-2023 ambulatory Hannah Sona Other [facility] Other Start: 04-26-2023 Telephone encounter Hannah Magallanes [facility] Start: 04-23-2023 End: 04-23-2023 ambulatory Hannah Sona Other [facility] Other Start: 04-23-2023 Telephone encounter Hannah Magallanes [facility] Start: 03-25-2023 End: 03-25-2023 ambulatory Hannah Magallanes Other [facility] Other Start: 03-25-2023 Telephone encounter Hannah Magallanes [facility] Start: 03-06-2023 End: 03-06-2023 ambulatory Hannah Magallanes Other [facility] Other Start: 03-06-2023 Telephone encounter Hannah Magallanes [facility] Start: 02-20-2023 End: 02-20-2023 ambulatory Hannah Magallanes Other [facility] Other Start: 02-20-2023 Office outpatient vi sit 25 minutes Hannah Magallanes [facility] Start: 02-05-2023 End: 02-05-2023 ambulatory Hannah Magallanes Other [facility] Other Start: 02-05-2023 Telephone encounter Hannah Magallanes [facility] Start: 01-21-2023 End: 01-21-2023 ambulatory Hannah Magallanes Other [facility] Other Start: 01-21-2023 Telephone encounter Hannah Magallanes [employer] Start: 01-17-2023 End: 01-17-2023 ambulatory Hannah Magallanes Other [facility] Other Start: 01-17-2023 Office outpatient vi sit 15 minutes Hannah Magallanes [facility] Start: 12-24-2022 End: 12-24-2022 ambulatory Hannah Magallanes Other [facility] Other Start: 12-24-2022 Telephone encounter Hannah Magallanes [facility] Start: 12-03-2022 End: 12-03-2022 ambulatory Hannah Magallanes Other [facility] Other Start: 12-03-2022 Telephone encounter Hannah Magallanes [facility] Start: 11-27-2022 End: 11-27-2022 ambulatory Hannah Magallanes Other [facility] Other Start: 11-27-2022 Telephone encounter Hannah Magallnaes [facility] Start: 11-26-2022 End: 11-26-2022 ambulatory Hannah Magallanes Other [facility] Other Start: 11-26-2022 Telephone encounter Hannah Magallanes [facility] Start: 11-24-2022 End: 11-25-[address] HANNAH MAGALLANES Facility:[facility] Start: 11-23-2022 End: 11-23-2022 ambulatory Hannah Magallanes Other [facility] Other Start: 11-23-2022 Office outpatient vi sit 15 minutes Hannah Magallanes [facility] Start: 11-05-2022 End: 11-05-2022 ambulatory Hannah Magallanes Other [facility] Other Start: 11-05-2022 Telephone encounter Hannah Magallanes [facility] Start: 10-03-2022 End: 10-03-2022 ambulatory Hannah Magallanes Other [facility] Other Start: 10-03-2022 Telephone encounter Hannah Magallanes [facility] Start: 09-04-2022 End: 09-04-2022 ambulatory Hannah Magallanes Other [facility] Other Start: 09-04-2022 Office outpatient vi sit 25 minutes Hannah Magallanes [facility] Start: 07-26-[address] HANNAH MAGALLANES Facil ity:[facility] Start: 07-19-2022 End: 07-20-[address] WILFREDO ENGLE Facility:[facility] Start: 06-07-2022 End: 06-07-[address] HANNAH MAGALLANES Facility:[facility] Start: 03-15-2022 ambulatory KESHA TRUJILLO Facility:[facility] Start: 02-06-2022 End: 02-06-2022 ambulatory Kesha Trujillo Other [facility] Other Start: 02-06-2022 Office outpatient vi sit 25 minutes Kesha Trujillo [facility] Start: 02-02-2022 End: 02-03-2022 ambulatory KESHA TRUJILLO Facility:[facility] Start: 12-28-2021 End: 12-28-[address] HANNAH MAGALLANES Facility:[facility] Start: 12-12-2021 End: 12-13-2021 ambulatory KESHA TRUJILLO [facility] Other Start: 12-12-2021 Office outpatient ne w 30 minutes Kesha Olexa [facility] Start: 05-26-2021 Office outpatient vi sit 15 minutes Harriet Mo [facility] Medical Equipment Procedure Code Equipment Code Equipment Original Text Equi pment Identifier Dates Accu-Chek FastClix Lancet - Immunizations Immunization Date Immunization Notes Care Provider Fa [facility] 06-02-2018 Influenza, injectabl e, Madin Middleton Canine Kidney, preservative free, quadrivalent Argentina Clinton PT Work Phone: [facility] 05-17-2017 influenza virus vaccine, split virus (incl. purified surface antigen) Hannah Magallanes Other [facility] Other 05-17-2017 influenza virus vaccine, unspecified formulation [facility] 05-16-2017 influenza, injectabl e, quadrivalent, preservative free Argentinacurtis Clinton PT Work Phone: [facility] 06-28-2016 influenza, injectabl e, quadrivalent, preservative free Argentina Clinton PT Work Phone: [facility] 06-28-2016 tetanus and diphther ia toxoids, adsorbed, preservative free, for adult use (5 Lf of tetanus toxoid and 2 Lf of diphtheria toxoid) Hannah Magallanes Other [facility] 05-25-2015 influenza, seasonal, injectable, preservative free Argentina Clinton PT Work Phone: [facility] 05-25-2015 tetanus and diphther ia toxoids, adsorbed, preservative free, for adult use (5 Lf of tetanus toxoid and 2 Lf of diphtheria toxoid) Hannah Magallanes Other [facility] 06-15-1999 pneumococcal conjuga te vaccine, 7 valent Argentina Clinton PT Work Phone: [facility] Medications Current Medications Medication Drug [...] as needed Orally every 6 hrs Active [id number] 200 actuat albuterol 0.09 mg/actuat metered dose [...] tab daily x 4 more days for Nov, Active DULoxetine 60 mg delayed release [...] Start: 07-19-2023 take 2 tablets by mo ut in the morning glipiZIDE-metFORMIN (Metaglip) 5-500 MG tablet Take 2 tablets by mouth in the morning and 2 tablets before bedtime. 0 07/19/2023 Active take 2 tablets by mo uth twice daily glipiZIDE-metFORMIN HCl 5-500 MG 2 [...] Start: 11-23-2022 take 2 tablets by mo uth every twenty-four hours predniSONE 20 MG 2 [...] Start: 08-13-2023 take 1 tablet by desirae th every six hours Start: 07-23-2023 take 1 [...] days May, Active Start: 2023 HYDROcodone-ac etaminophen (Barnhart) 10-325 MG tablet Start: 2023 take 1 [...] 30 mg oral tablet (5 sources) Uncompetitive V-ehnbft-F-aspartate Receptor Antagonist, Sigma-1 Agonist Start: 05-26-2021 take 1 tablet by mouth every eight hours [place] DMT 30-30 MG 1 tablet Orally every [...] 12-12-2021 Kenalog -40 mg Nov, 40 mg Payers Date Payer Category Payer Medicaid [id number] 2013 Medicare [id number] 1960 Unknown [id number] 2.16.84 0.1.607557.3.579.2.593 1960 Unknown [id number] 2.16.84 0.1.090464.3.579.2.593 1960 Unknown [id number] 2.16.84 0.1.708784.3.579.2.593 1960 Unknown [id number] 2.16.84 0.1.148792.3.579.2.593 1960 Unknown [id number] 2.16.84 0.1.984305.3.579.2.593 1960 Unknown [id number] 2.16.84 0.1.626630.3.579.2.593 1960 Unknown [id number] 2.16.84 0.1.039132.3.579.2.593 1960 Unknown [id number] 2.16.84 0.1.091541.3.579.2.593 1960 Unknown [id number] 2.16.8 40.1.487769.3.579.2.727 1960 Unknown [id number] 2.16.84 0.1.840358.3.579.2.1259 1960 Unknown [id number] 2.16.84 0.1.817565.3.579.2.1259 1960 Unknown [id number] 2.16.84 0.1.312811.3.579.2.1259 1960 Unknown [id number] 2.16.840 .1.853425.3.579.2.1259 1960 Unknown [id number] 2.16. 840.1.663294.3.579.2.196 1960 Unknown [id number] 2.16. 840.1.719807.3.579.2.196 1959 Medicaid [id number] 2. 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; Translations: [OTH [facility] CURRENT DRUG THERAPY] Onset: 12-29-2021 Episodic Other [...] Translations: [Syncope and collapse] Onset: 09-21-2016 Episodic Procedures Date Procedure Procedure Detail Performing Clinician Start: 12-18-2018 Laboratory test resu lt abnormal Hannahyeyo Magallanes Other Start: 05-12-2018 Removal of suture Milagro maikel Sona Other Start: 01-08-2017 Screening for malign ant neoplasm of prostate Hannah Magallanes Other Screening for malign ant neoplasm of colon Hannah Magallanes Other Screening for malign ant neoplasm of prostate Hannah Magallanes Other Results Test Name Value Interpretation Reference Range Facility Basophils Auto (Bld) [#/Vol] on 12-05-2023 Basophils (Bld) [#/Vol] 0.1 10 3/uL 0.0-0.1 [facility] Basophils/100 WBC Auto (Bld) on 12-05-2023 Basophils/100 [...] challengeon 12-05-2023 Calcium [Mass/Vol] 9.7 mg/dL 8.5-10.1 [facility] Chloride [Moles/Vol] 102 mmol/L 98-107 [facility] CO2 [Moles/Vol] 27.6 mmol/L 21.0-32.0 [facility] Creatinine [Mass/Vol] 1.01 mg/dL 0.70-1.30 [facility] GFR/1.73 sq M.predicted MDRD (S/P/Bld) [Vol rate/Area] mL/min/{1.73_m2} >=60 [facility] Glucose [Mass/Vol] 156 mg/dL 74-106 [facility] Potassium [Moles/Vol] 4.4 mmol/L 3.5-5.1 [facility] Sodium [Moles/Vol] 139 mmol/L 136-145 [facility] Urea nitrogen [Mass/Vol] 13.0 mg/dL 7.0-18.0 [...] RBC (Bld) [#/Vol] 5.62 10 6/uL 4.70-6.10 [facility] Serum or plasma anion gap de terminationon 12-05-2023 Anion gap [Moles/Vol] 13.8 mmol/L [facility] Magnesiumon 07-02-2023 Magnesium [Mass/Vol] 2.2532119 mg/dL Normal 1.8-2.4 mg/dL [facility] Other Magnesium see note [facility] Other MRI Shoulder w/o Contrast Ri jonathon 05-31-2023 MRI Shoulder w/o Contrast Right Exam Date/Time: 05/30/2023 14:25 EDT Reason for Exam: [id number] Report IMPRESSION: Full-thickness rotator cuff tearing involving [...] TAMARA Technologist: STELLA Technical Comments None Normal [facility] Consent for Treatmenton 05-19 Consent for Treatment [id number] .00TIFF Normal [facility] RAD - MRI Screening Formon 1 RAD - MRI Screening Form [id number]. 00TIFF Normal [facility] Physician Orderon 05-09-2023 Physician Order [id number]# 1.00CD:127 Normal [facility] XR CHEST 2 Von 11-24-2022 XR CHEST [...] by: RUBI TAVERAS Date: 2022-11-24 17:[address] [facility] [address] LUNG CANCER SCREENINGon 1 09-20-2021 CT [...] by: YEISON NAVAS Date: 2022-07-20 07:18 Normal [facility] CBC AUTO DIFFon 06-07-2022 BASO # 0.1 103/ul Normal 0.0-0.1 [facility] Comment on above: Performed By: #### C BC #### [facility] [address] [address] [address] Eran Chacon Basophils/100 WBC (Bld) 0.6 % Normal 0.2-2.0 [facility] Comment on above: Performed By: #### C BC #### [facility] [address] [place] [address] Dr. Eran Chacon EO # 0.3 103/ul Normal 0.0-0.7 [facility] Comment on above: Performed By: #### C BC #### [facility] [address] [place] [address] Dr. Eran Chacon Eosinophils/100 WBC (Bld) 3.3 % Normal 0.9-7.0 [facility] Comment on above: Performed By: #### C BC #### [facility] [address] [place] [address] Dr. Eran Chacon Erythrocyte distribution width (RBC) [Ratio] 12.9 % Normal 11.0-15.0 [facility] Comment on above: Performed By: #### C BC #### [facility] [address] [place] [address] Dr. Eran Chacon Hematocrit (Bld) [Volume fraction] 47.7 % Normal 42.0-54.0 [facility] Comment on above: Performed By: #### C BC #### [facility] [address] [place] [address] Dr. Eran Chacon Hemoglobin (Bld) [Mass/Vol] 15.9 g/dL Normal 14.0-18.0 [facility] Comment on above: Performed By: #### C BC #### [facility] [address] [place] [address] Dr. Eran Chacon IG # 0.02 10e3/ul Normal 0.00-0.03 [facility] Comment on above: Performed By: #### C BC #### [facility] [address] [place] [address] Dr. Eran Chacon IG % 0.2 % Normal 0.0-0.5 [facility] Comment on above: Performed By: #### C BC #### [facility] [address] [place] [address] Dr. Eran Chacon LYMPH # 3.4 103/ul Normal 1.2-3.8 [facility] Comment on above: Performed By: #### C BC #### [facility] [address] [place] [address] Dr. Eran Chacon Lymphocytes/100 WBC (Bld) 34.5 % Normal 20.5-60.0 [facility] Comment on above: Performed By: #### C BC #### [facility] [address] [place] [address] Dr. Eran Chacon MANUAL DIFF REQ NO Normal [facility] Comment on above: Performed By: #### C BC #### [facility] [address] [place] [address] Dr. Eran Chacon MCH (RBC) [Entitic mass] 29.6 pg Normal 25.9-34.0 [facility] Comment on above: Performed By: #### C BC #### [facility] [address] [place] [address] Dr. Eran Chacon MCHC (RBC) [Mass/Vol] 33.3 g/dL Normal 29.9-35.2 [facility] Comment on above: Performed By: #### C BC #### [facility] Laboratory [address] [place] [address] Dr. Eran Chacon MCV (RBC) [Entitic vol] 88.8 fL Normal 80.0-94.0 [facility] Comment on above: Performed By: #### C BC #### [facility] [address] [place] [address] Dr. Eran hCacon MONO # 0.9 103/ul Critically high 0.3-0.8 [facility] Comment on above: Performed By: #### C BC #### [facility] [address] [place] [address] Dr. Eran Chacon Monocytes/100 WBC (Bld) 9.3 % Normal 1.7-12.0 [facility] Comment on above: Performed By: #### C BC #### [facility] [address] [place] [address] Dr. Eran Chacon NEUT # 5.2 103/ul Normal 1.4-6.5 [facility] Comment on above: Performed By: #### C BC #### [facility] [address] [place] [address] Dr. Eran Chacon Neutrophils/100 WBC (Bld) 52.1 % Normal 43.0-75.0 [facility] Comment on above: Performed By: #### C BC #### [facility] [address] [place] [address] Dr. Eran Chacon Platelet mean volume (Bld) [Entitic vol] 8.8 fL Critically low 9.5-13.5 [facility] Comment on above: Performed By: #### C BC #### [facility] [address] [place] [address] Dr. Eran Chacon PLT 287 103/ul Normal 150-450 [facility] Comment on above: Performed By: #### C BC #### [facility] [address] [place] [address] Dr. Eran Chacon RBC 5.37 106/ul Normal 4.70-6.10 [facility] Comment on above: Performed By: #### C BC #### [facility] [address] [place] [address] Dr. Eran Chacon WBC 9.9 103/ul Normal 4.0-11.0 [facility] Comment on above: Performed By: #### C BC #### [facility] [address] [place] [address] Dr. Eran Chacon ER URINE PROFILEon 2 Bilirubin Ql (U) Negative Normal NEGATIVE [facility] Comment on above: Performed By: #### ERMELINDA BATESICRO #### [facility] [address] [place] [address] Dr. Eran Chacon Clarity (U) CLEAR Normal CLEAR [facility] Comment on above: Performed By: #### Med SHER UMICRO #### [facility] [address] [place] [address] Dr. Eran Chacon Color (U) YELLOW Normal YELLOW [facility] Comment on above: Performed By: #### BISHNU BATESRO #### [facility] [address] [place] [address] Dr. Eran GATES A micrscopic examination will be performed if indicated. Normal [facility] Comment on above: Performed By: #### Med SHER UMICRO #### [facility] [address] [place] [address] Dr. Eran Chacon Glucose Ql (U) 500 mg/dl Abnormal NEGATIVE [facility] Comment on above: Performed By: #### Med SHER UMICRO #### [facility] [address] [address] [address] Eran Chacon Hemoglobin Ql (U) TRACE-INTACT Abnormal NEGATIVE [facility] Comment on above: Performed By: #### Med SHER UMICRO #### [facility] [address] [place] [address] Dr. Eran Chacon Ketones Ql (U) Negative Normal NEGATIVE [facility] Comment on above: Performed By: #### Med SHER UMICRO #### [facility] [address] [place] [address] Dr. Eran Chacon LEUKOCYTES Negative Normal NEGATIVE [facility] Comment on above: Performed By: #### Med SHER UMICRO #### [facility] [address] [place] [address] Dr. Eran Chacon Nitrite Ql (U) Negative Normal NEGATIVE [facility] Comment on above: Performed By: #### Med SHER UMICRO #### [facility] [address] [place] [address] Dr. Eran Chacon pH (U) 6.0 [pH] Normal 5-9 [facility] Comment on above: Performed By: #### Med SHER UMICRO #### [facility] [address] [place] [address] Dr. Eran Chacon SPEC GRAVITY 1.025 Normal 1.005-<=1.025 [facility] Comment on above: Performed By: #### Med SHER UMICRO #### [facility] [address] [place] [address] Dr. Eran Chacon UA PROTEIN Negative Normal NEGATIVE/ TRACE [facility] Comment on above: Performed By: #### HANNA BATES #### [facility] [address] [place] [address] Dr. Eran Chacon UR MICRO IND INDICATED Normal [facility] Comment on above: Performed By: #### BISHNU BATESRO #### [facility] [address] [place] [address] Dr. Eran Chacon Urobilinogen Qn (U) 0.2 {Aureliano'U}/dL Normal 0.2 - 1. 0 [facility] Comment on above: Performed By: #### HANNA BATES #### [facility] [address] [place] [address] Dr. Eran Chacon PROF 14(COMP METB)on 022 Albumin [Mass/Vol] 4.0 g/dL Normal 3.4-5.0 [facility] Comment on above: Performed By: #### C MP #### [facility] [address] [place] [address] Dr. Eran Chacon Albumin/Globulin [Mass ratio] 1.2 {ratio} Normal [facility] Comment on above: Performed By: #### C MP #### [facility] [address] [place] [address] Dr. Eran Chacon ALP [Catalytic activity/Vol] 104 U/L Normal 46-116 [facility] Comment on above: Performed By: #### C MP #### [facility] [address] [place] [address] Dr. Eran Chacon ALT [Catalytic activity/Vol] 28 U/L Normal 16-63 [facility] Comment on above: Performed By: #### C MP #### [facility] [address] [place] [address] Dr. Eran Chacon Anion gap [Moles/Vol] 7.2 mmol/L Normal [facility] Comment on above: Performed By: #### C MP #### [facility] [address] [place] [address] Dr. Eran Chacon AST [Catalytic activity/Vol] 14 U/L Critically low 15-37 [facility] Comment on above: Performed By: #### C MP #### [facility] [address] [address] [address] Eran Chacon Bilirubin [Mass/Vol] 0.4 mg/dL Normal 0.2-1.0 [facility] Comment on above: Performed By: #### C MP #### [facility] [address] [address] [address] Eran Chacon Calcium [Mass/Vol] 9.0 mg/dL Normal 8.5-10.1 [facility] Comment on above: Performed By: #### C MP #### [facility] [address] [address] [address] Eran Chacon Chloride [Moles/Vol] 103 mmol/L Normal 98-107 [facility] Comment on above: Performed By: #### C MP #### [facility] [address] [place] [address] Dr. Eran Chacon CO2 [Moles/Vol] 30.0 mmol/L Normal 21.0-32.0 [facility] Comment on above: Performed By: #### C MP #### [facility] [address] [place] [address] Dr. Eran Chacon Creatinine [Mass/Vol] 0.85 mg/dL Normal 0.70-1.30 [facility] Comment on above: Performed By: #### C MP #### [facility] [address] [place] [address] Dr. Eran Chacon EGFR-AF INDIAN >60 Normal >=60 [facility] Comment on above: Performed By: #### C MP #### [facility] [address] [place] [address] Dr. Eran Chacon EGFR-NON AF INDIAN >60 Normal >=60 [facility] Comment on above: Performed By: #### C MP #### [facility] [address] [place] [address] Dr. Eran Chacon Globulin (S) [Mass/Vol] 3.3 g/dL Normal [facility] Comment on above: Performed By: #### C MP #### [facility] [address] [place] [address] Dr. Eran Chacon Glucose [Mass/Vol] 165 mg/dL Critically high 74-106 [facility] Comment on above: Performed By: #### C MP #### [facility] [address] [address] [address] Eran Chacon Potassium [Moles/Vol] 4.2 mmol/L Normal 3.5-5.1 [facility] Comment on above: Performed By: #### C MP #### [facility] [address] [address] [address] Eran Chacon Protein [Mass/Vol] 7.3 g/dL Normal 6.4-8.2 [facility] Comment on above: Performed By: #### C MP #### [facility] [address] [place] [address] Dr. Eran Chacon Sodium [Moles/Vol] 136 mmol/L Normal 136-145 [facility] Comment on above: Performed By: #### C MP #### [facility] [address] [place] [address] Dr. Eran Chacon Urea nitrogen [Mass/Vol] 10.0 mg/dL Normal 7.0-18.0 [facility] Comment on above: Performed By: #### C MP #### [facility] [address] [place] [address] Dr. Eran Chacon Urea nitrogen/Creatinine [Mass ratio] 11.8 mg/mg Normal [facility] Comment on above: Performed By: #### C MP #### [facility] [address] [place] [address] Dr. Eran Chacon URINE MICROSCOPIC ONLYon BACTERIA NONE SEEN Normal NONE SEEN [facility] Comment on above: Performed By: #### HANNA BATES #### [facility] [address] [place] [address] Dr. Eran Chacon Bacteria identified Cx Nom (U) NOT INDICATED Normal [facility] Comment on above: Performed By: #### BISHNU BATESRO #### [facility] [address] [place] [address] Dr. Eran Chacon CAST NONE SEEN Normal NONE SEEN [facility] Comment on above: Performed By: #### E RUR, UMICRO #### [facility] [address] [address] [address] Eran Chacon Crystals LM Nom (Urine sed) NONE SEEN Normal NONE SEEN [facility] Comment on above: Performed By: #### E RUR, UMICRO #### [facility] [address] [place] [address] Dr. Eran Chacon Epithelial cells LM Ql (Urine sed) RARE Normal NONE SEEN /RARE [facility] Comment on above: Performed By: #### E RUR, UMICRO #### [facility] [address] [place] [address] Dr. Eran Chacon MUCOUS NONE SEEN Normal NONE SEEN [facility] Comment on above: Performed By: #### E RUR, UMICRO #### [facility] [address] [place] [address] Dr. Eran Chacon RBC 0-2 Normal 0-2 [facility] Comment on above: Performed By: #### E RUR, UMICRO #### [facility] [address] [place] [address] Dr. Eran Chacon WBC 2-5 Abnormal NONE SEEN [facility] Comment on above: Performed By: #### E RUR, UMICRO #### [facility] [address] [place] [address] Dr. Eran Chacon MRI SHOULDER LT WO [...] by: YEISON NAVAS Date: 2022-02-02 17:09 Normal [facility] XR shoulder LT min 2V*on XR shoulder LT min 2V* [facility] [place] [address] [place] [address] XRay Report Signed Patient: Nicholas Ziegler MR#: [id number] : 1960 Acct:[id number] Age/Sex: 61 / M ADM Date: 01/25/22 Loc: [facility] Room: Type: [facility] Attending Dr: Kesha Trujillo MD Ordering [...] Otilia Nunez M.D.01/25/2022 11:41 AM Dictation Location: [place] [address] Transcribed By: [facility] 01/25/22 1141 Dictated By: Otilia Nunez MD 01/25/22 1139 Signed By: 01/25/22 1141 Normal [facility] Social History Date Type Detail Facility Start: 09-02-2023 Sex Assigned At [facility] Start: 09-02-2023 Alcohol intake Lifetime non-drinker (finding) [facility] Start: 08-21-2023 Gender identity Identifies as male gender (finding) [facility] Start: 08-21-2023 Sexual orientation Heterosexual (finding) [facility] Start: 03-27-2023 Tobacco smoking status COIS Smokes tobacco daily [facility] Work Phone: Start: 03-27-2023 End: 09-02-2023 Cigarettes smoked current (pack per day) - Reported 0.5 [facility] Start: 03-27-2023 Tobacco use and exposure Smokeless tobacco non-user [facility] Start: 03-27-2023 Alcohol Comment Caffine- Soda [facility] Start: 02-06-2017 Tobacco smoking status NHIS Ex-smoker (finding) [facility] Start: 1960 Sex Assigned At Male [facility] Tobacco smoking status No Smokin g Status Entered [facility] History of tobacco use Cigarette Smoker [facility] Vital Signs Date Time Vital Sign Value Performing Clinician Facility 12-17-2023 08:54-0400 Body height 175.26 cm [facility] 12-17-2023 08:54-0400 Body mass index (BMI) [Ratio] 35.2 kg/m2 [facility] 12-17-2023 08:54-0400 Body weight 108.4 kg [facility] 12-17-2023 08:54-0400 Diastolic blood pressure 76 mm[Hg] [facility] 12-17-2023 08:54-0400 Heart rate 76 /min [facility] 12-17-2023 08:54-0400 Systolic blood pressure 154 mm[Hg] [facility] 12-05-2023 08:52-0400 Body height 175.26 cm [facility] 12-05-2023 08:52-0400 Body mass index (BMI) [Ratio] 35 kg/m2 [facility] 12-05-2023 08:52-0400 Body weight 107.67 kg [facility] 12-05-2023 08:52-0400 Diastolic blood pressure 78 mm[Hg] [facility] 12-05-2023 08:52-0400 Heart rate 69 /min [facility] 12-05-2023 08:52-0400 Systolic blood pressure 147 mm[Hg] [facility] 09-13-2023 13:30-0500 Body height 175.26 cm Hannah Magallanes Other [facility] 09-13-2023 13:30-0500 Body mass index (BMI) [Ratio] 33.22 kg/m2 Hannah Magallanes Other [facility] [employer] Other 09-13-2023 13:30-0500 Body temperature 98.4 [degF] Hannah Magallanes Other [facility] [employer] Other 09-13-2023 13:30-0500 Body weight 102.06 kg Hannah Magallanes Other [facility] [employer] Other 09-13-2023 13:30-0500 Body weight 102.05 kg [facility] 09-13-2023 13:30-0500 Diastolic blood pressure 80 mm[Hg] Hannah Magallanes Other [facility] 09-13-2023 13:30-0500 SaO2% (BldA) [Mass fraction] 93 % Hannah Magallanes Other [employer] [facility] [employer] Other 09-13-2023 13:30-0500 Systolic blood pressure 118 mm[Hg] Hannah Magallanes Other [facility] 08-13-2023 10:30-0500 Body height 175.26 cm Hannah Magallanes Other [facility] Other 08-13-2023 10:30-0500 Body mass index (BMI) [Ratio] 33.9 kg/m2 Hannah Magallanes Other [facility] Other 08-13-2023 10:30-0500 Body weight 104.15 kg Hannah Magallanes Other [facility] Other 08-13-2023 10:30-0500 Diastolic blood pressure 78 mm[Hg] Hannah Magallanes Other [facility] Other 08-13-2023 10:30-0500 Systolic blood pressure 124 mm[Hg] Hannah Magallanes Other [facility] Other 06-25-2023 08:45-0500 Body height 175.26 cm Hannah Magallanes Other [facility] Other 06-25-2023 08:45-0500 Body mass index (BMI) [Ratio] 33.37 kg/m2 Hannah Magallanes Other [facility] Other 06-25-2023 08:45-0500 Body temperature 96.5 [degF] Hannah Magallanes Other [facility] Other 06-25-2023 08:45-0500 Body weight 102.51 kg Hannah Magallanes Other [facility] Other 06-25-2023 08:45-0500 Diastolic blood pressure 85 mm[Hg] Hannah Magallanes Other [facility] Other 06-25-2023 08:45-0500 Systolic blood pressure 149 mm[Hg] Hannah Magallanes Other [facility] Other 05-28-2023 10:45-0400 Body height 175.26 cm Hannah Magallanes Other [facility] Other 05-28-2023 10:45-0400 Body mass index (BMI) [Ratio] 33.52 kg/m2 Hannah Magallanes Other [facility] Other 05-28-2023 10:45-0400 Body weight 102.97 kg Hannah Magallanes Other [facility] Other 05-28-2023 10:45-0400 Diastolic blood pressure 82 mm[Hg] Hannah Magallanes Other [facility] Other 05-28-2023 10:45-0400 Systolic blood pressure 147 mm[Hg] Hannah Magallanes Other [facility] Other 2023 08:45-0400 Body height 175.26 cm Hannah Magallanes Other [facility] Other 2023 08:45-0400 Body mass index (BMI) [Ratio] 33.52 kg/m2 Hannah Magallanes Other [facility] Other 2023 08:45-0400 Body weight 102.97 kg Hannah Magallanes Other [facility] Other 2023 08:45-0400 Diastolic blood pressure 85 mm[Hg] Hannah Magallanes Other [facility] Other 2023 08:45-0400 Systolic blood pressure 156 mm[Hg] Hannah Magallanes Other [facility] Other 04-30-2023 09:45-0400 Body height 175.26 cm Hannah Magallanes Other [facility] Other 04-30-2023 09:45-0400 Body mass index (BMI) [Ratio] 34.32 kg/m2 Hannah Magallanes Other [facility] Other 04-30-2023 09:45-0400 Body temperature 96.2 [degF] Hannah Magallanes Other [facility] Other 04-30-2023 09:45-0400 Body weight 105.42 kg Hannah Magallanes Other [facility] Other 04-30-2023 09:45-0400 Diastolic blood pressure 78 mm[Hg] Hannah Magallanes Other [facility] Other 04-30-2023 09:45-0400 Respiratory rate 16 /min Hannah Magallanes Other [facility] Other 04-30-2023 09:45-0400 Systolic blood pressure 146 mm[Hg] Hannah Magallanes Other [facility] Other 02-20-2023 09:15-0400 Body height 175.26 cm Hannah Magallanes Other [facility] Other 02-20-2023 09:15-0400 Body mass index (BMI) [Ratio] 33.46 kg/m2 Hannah Magallanes Other [facility] Other 02-20-2023 09:15-0400 Body weight 102.79 kg Hannah Magallanes Other [facility] Other 02-20-2023 09:15-0400 Diastolic blood pressure 77 mm[Hg] Hannah Magallanes Other [facility] Other 02-20-2023 09:15-0400 Systolic blood pressure 131 mm[Hg] Hannah Magallanes Other [facility] Other 01-17-2023 08:45-0400 Body height 175.26 cm Hannah Magallanes Other [facility] Other 01-17-2023 08:45-0400 Body mass index (BMI) [Ratio] 33.37 kg/m2 Hannah Magallanes Other [facility] Other 01-17-2023 08:45-0400 Body weight 102.51 kg Hannah Magallanes Other [facility] Other 01-17-2023 08:45-0400 Diastolic blood pressure 79 mm[Hg] Hannah Magallanes Other [facility] Other 01-17-2023 08:45-0400 Systolic blood pressure 128 mm[Hg] Hannah Magallanes Other [facility] Other 11-23-2022 09:30-0400 Body height 175.26 cm Hannah Magallanes Other [facility] Other 11-23-2022 09:30-0400 Body mass index (BMI) [Ratio] 33.96 kg/m2 Hannah Magallanes Other [facility] Other 11-23-2022 09:30-0400 Body weight 104.33 kg Hannah Magallanes Other [facility] Other 11-23-2022 09:30-0400 Diastolic blood pressure 72 mm[Hg] Hannah Magallanes Other [facility] Other 11-23-2022 09:30-0400 Systolic blood pressure 122 mm[Hg] Hannah Magallanes Other [facility] Other 09-04-2022 11:30-0500 Body height 175.26 cm Hannah Magallanes Other [facility] Other 09-04-2022 11:30-0500 Body mass index (BMI) [Ratio] 33.52 kg/m2 Hannah Magallanes Other [facility] Other 09-04-2022 11:30-0500 Body weight 102.97 kg Hannah Magallanes Other [facility] Other 09-04-2022 11:30-0500 Diastolic blood pressure 80 mm[Hg] Hannah Magallanes Other [facility] Other 09-04-2022 11:30-0500 SaO2% (BldA) [Mass fraction] 95 % Hannah Magallanes Other [facility] Other 09-04-2022 11:30-0500 Systolic blood pressure 122 mm[Hg] Hannah Magallanes Other [facility] Other 02-06-2022 12:45-0400 Body height 175.26 cm Kesha Olexa Other [facility] Other 02-06-2022 12:45-0400 Body mass index (BMI) [Ratio] 31.01 kg/m2 Kesha Olexa Other [facility] Other 02-06-2022 12:45-0400 Body weight 95.26 kg Kesha Olexa Other [facility] Other 05-26-2021 13:15-0400 Body height 175.26 cm Harriet Mo Other [facility] Other 05-26-2021 13:15-0400 Body mass index (BMI) [Ratio] 31.01 kg/m2 Harriet Mo Other [facility] Other 05-26-2021 13:15-0400 Body temperature 98.3 [degF] Harriet Mo Other [facility] Other 05-26-2021 13:15-0400 Body weight 95.26 kg Harriet Mo Other [facility] Other 05-26-2021 13:15-0400 SaO2% (BldA) [Mass fraction] 96 % Harriet Mo Other [facility] Other Clinical Notes 05-26-2021 to 10-02-2023 Telephone Encounter - Maris Tavera - 10/02/2023 1:35 PM ESTTelephone Encounter - Maris Tavera - 10/02/2023 1:35 PM EST Note Date & Type Note Facility 10-02-2023 Telephone encounter Note Form atting of this note might be different from the original. No attempts to hear back; closing referral. [facility] 10-02-2023 Miscellaneous Notes Formattin g of this note might be different from the original. No attempts to hear back; closing referral. documented in this encounter [facility] 09-13-2023 Evaluation note Encounter Date Diagnosis Assessment Notes Aug, Chronic obstructive pulmonary disease, unspecified (ICD-10 - J44.9) Finish antibiotics and prednisone as prescribed. Denies pulmonary referral at this time. Hasn't smoked since 09/08 and declines chantix or patches. Aug, Current smoker (ICD-10 - F17.200) [facility] Other 01-23-2024 Evaluation note* Encounter Date Diagnosis Assessment Notes Treatment Notes Treatment Clinical Notes Aug, Lumbar radicular pain (ICD-10 - M54.16) [facility] Other 01-19-2024 Evaluation note* Encounter Date Diagnosis Assessment Notes Treatment Notes Treatment Clinical Notes Aug, Lumbar radicular pain (ICD-10 - M54.16) [facility] Other 12-26-2023 Evaluation note* Encounter Date Diagnosis Assessment Notes Treatment Notes Treatment Clinical Notes Jul, Type 2 diabetes mellitus with hyperglycemia, without long-term current use of insulin (ICD-10 - E11.65) [facility] Other 12-26-2023 Evaluation note* Encounter Date Diagnosis [...] T3s after shoulder pain has improved post-operatively. [facility] Other 12-04-2023 Evaluation note* Encounter Date Diagnosis Assessment Notes Treatment Notes Treatment Clinical Notes Jul, Type 2 diabetes mellitus with hyperglycemia, without long-term current use of insulin (ICD-10 - E11.65) [facility] Other 12-01-2023 Evaluation note* Encounter Date Diagnosis Assessment Notes Treatment Notes Treatment Clinical Notes Jul, Type 2 diabetes mellitus with hyperglycemia, without long-term current use of insulin (ICD-10 - E11.65) [facility] Other 11-30-2023 Evaluation note* Encounter Date Diagnosis Assessment Notes Treatment Notes Treatment Clinical Notes Jun, Labral tear of shoulder, right, subsequent encounter (ICD-10 - S43.431D) [facility] Other 11-14-2023 Evaluation note* Encounter Date Diagnosis [...] pain (ICD-10 - R07.9) r/o cardiac cause [facility] Other 11-07-2023 Evaluation note* Encounter Date Diagnosis [...] to decrease dose and possibly discontinue medication. [facility] Other 11-02-2023 Evaluation note* Encounter Date Diagnosis Assessment Notes Treatment Notes Treatment Clinical Notes Jun, Acute pain of right shoulder (ICD-10 - M25.511) [facility] Other 10-30-2023 Evaluation note* Encounter Date Diagnosis Assessment Notes Treatment Notes Treatment Clinical Notes May, Acute pain of right shoulder (ICD-10 - M25.511) [facility] Other 10-23-2023 Evaluation note* Encounter Date Diagnosis Assessment Notes Treatment Notes Treatment Clinical Notes May, Acute pain of right shoulder (ICD-10 - M25.511) [facility] Other 10-16-2023 Evaluation note* Encounter Date Diagnosis Assessment Notes Treatment Notes Treatment Clinical Notes May, Acute pain of right shoulder (ICD-10 - M25.511) [facility] Other 10-10-2023 Evaluation note* Encounter Date Diagnosis Assessment Notes Treatment Notes Treatment Clinical Notes May, Acute pain of right shoulder (ICD-10 - M25.511) MRI and surgery planning pending. Pt understands this is a controlled substance and to call in 1 week w update on treatment plan. May, Bronchitis (ICD-10 - J40) Finish antibiotic, rest, hydrate Steroids for wheezing. [facility] Other 10-04-2023 Evaluation note* Encounter Date Diagnosis Assessment Notes Treatment Notes Treatment Clinical Notes May, Acute pain of right shoulder (ICD-10 - M25.511) Reviewed [place] and discussed short term plan of increase in pain medication. He is due for a refill of the T3s presently. Stop them, replace w norco. Pt understands weekly prescription and will need to d/c after anticipated surgery. [facility] Other 09-12-2023 Evaluation note* Encounter Date Diagnosis [...] office and the ER visit on 04/26 [facility] Other 07-05-2023 Evaluation note* Encounter Date Diagnosis [...] and will need less prn pain med. [facility] Other 06-01-2023 Evaluation note* Encounter Date Diagnosis [...] left shoulder (ICD-10 - M25.512) as above. [facility] Other 04-17-2023 Evaluation note* Encounter Date Diagnosis Assessment Notes Treatment Notes Treatment Clinical Notes Nov, Bronchitis (ICD-10 - J40) [facility] Other 04-11-2023 Evaluation note* Encounter Date Diagnosis Assessment Notes Treatment Notes Treatment Clinical Notes Nov, Disc degeneration, lumbar (ICD-10 - M51.36) Nov, Lumbar radicular pain (ICD-10 - M54.16) [facility] Other 04-07-2023 Evaluation note* Encounter Date Diagnosis [...] quit smoking. Pt verbalizes understanding and agreement. [facility] Other 02-15-2023 Evaluation note* Encounter Date Diagnosis Assessment Notes Treatment Notes Treatment Clinical Notes Sep, Lumbar radicular pain (ICD-10 - M54.16) [facility] Other 01-17-2023 Evaluation note* Encounter Date Diagnosis [...] is outlined on the test result page. [facility] Other 10-20-2022 NoteIndication: Calculus in kidney. 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 [facility] Other 04-26-2022 NotePROCEDURE: XR SHOULDER LT 2V or > COMPARISON: None. HISTORY: Pain of left shoulder joint FINDINGS: BONES:No acute fracture or dislocation. 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 No visible soft tissue swelling. EFFUSION:None visible. OTHER: Negative. IMPRESSION: Mild osteoarthritis Electronically authenticated by: BARBIE MEMBRENO Date: 2021-12-12 15:[facility] Encounter Date Diagnosis Assessment [...] pain of left shoulder (ICD-10 - M25.512) [facility] [employer] Other 10-08-2021 Evaluation note* Encounter Date Diagnosis [...] as needed for cough. Advised patient that [place] contains antihistamine and cough suppressant and to be cautious using other OTC cold medications. Patient to follow up with PCP if symptoms do not improve. Immediate eval if SOB, difficulty breathing, chest pain, dizziness, or other concerning symptoms. Patient verbalizes understanding and is agreeable to treatment plan [facility] [employer] Other Evaluation + Plan note No data available for this section [facility] noteNo InformationNortLanc[facility] [employer] Other Evaluation note* Diagnosis Onset Date Resolution Status Arthralgia acute Lumbar pain acute Type II diabetes mellitus ac [facility] Work Phone: Evaluation note* Diagnosis Onset Date Resolution Status Arthralgia acute Lumbar pain acute Type II diabetes mellitus ac [place] Bilateral hip pain acute [facility] Work Phone: History general Narrative - Reported* Type Description Date Medical History Asthma Medical History skin cancer-lip Surgical History Left lung biopsy 1977 Surgical History L4 and L5 disc fusion 1984 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 Surgical History carpal tunnel release 2016 Surgical History tonsillectomy Hospitalization History 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 Hospitalization History pneumonia [facility] [employer] Other Hospital Discharge instructions No data available for this section [facility] No data available for this section [facility] Summary Purpose Family History No Family History [...] 1 Epigastric abdominal pain (R10.13) Referral Organization [facility] [employer] [facility] Referring Provider First Name Hannah Referring Provider Last Name Sona Referring Provider Specialty [facility] [employer] Referred Organization [facility] Referred Provider Sai Martinez Referred Address ,[place], [place],[address] Referred Provider Specialty Surgery Referral Priority Routine General Notes Es Camilo 11:38:02 AM >received today, attachments made, notes locked, referral faxed Reason 01/28/23 [facility] - B shoulder pain L>R - hopes for injections. Diagnosis 1 Pain in right should er (M25.511) Referral Organization [facility] [employer] [facility] Referring Provider First Name Hannah Referring Provider Last Name Sona Referring Provider Specialty [facility] [employer] Referred Organization [facility] Referred Provider Barbie Jesus Referred Address ,[place], [place],[address] Referred Provider Specialty Orthopaedic Surgery Referral Priority [...] appt date, faxed first letter for notes Abel Camiloya 02/15/2023 04:23:26 PM >notes received, and sent for review. closing out referral Reason [facility] - B shoulder pain L>R - hopes for injections. Diagnosis 1 Pain in right should er (M25.511) Referral Organization [facility] Referring Provider First Name Hannah Referring Provider Last Name Sona Referring Provider Specialty [facility] Referred Organization [facility] Referred Provider Barbie Jesus Referred Address ,[place], [place],[address] Referred Provider Specialty Orthopaedic Surgery Referral Priority Routine General Notes Es Camilo 03:00:30 PM >received today, notes note locked, will fax when done Leslee Es 01/21/2023 10:35:11 AM >sent TE to [...] section and content) DATE CREATED AUTHOR 02/10/2022 [facility] DATE CREATED AUTHOR AUTHOR'S ORGANIZ ATION 12/04/2022 [facility] DATE CREATED AUTHOR AUTHOR'S ORGANIZ ATION 06/01/2023 [facility] DATE CREATED AUTHOR AUTHOR'S ORGANIZ ATION 10/07/2023 [facility] DATE CREATED AUTHOR AUTHOR'S ORGANIZ ATION 02/09/2024 [facility] Patient Care team informatio n (unrecognized [...] December 17, 2023 End: December 17, 2023 Film Reader Relationship Specialty Start Date End Date Hannah Magallanes MD [address] [place] [address] PCP - General Family Medicine 01/23/23 Team [...] BE BASED ON THE PRIMARY CLINICAL RECORDS. [facility] provides no warranty or guarantee of the accuracy or completeness of information in this document.
[2024-02-24 08:40] LABS: Glucometer 227 mg/dL (74-106)
[2024-02-24 09:07] VITALS: BP 142/90; BP 142/92; PULSE 71; PULSE 75; O2SAT 95; O2SAT 97
[2024-02-24] MEDS: LIDOCAINE HCL 2% 400 MG/20 ML MDV 15 ML INJ (09:08)
[2024-02-24] MEDS: BUPIVACAINE HCL 0.25% PF 25 MG/10 ML VIAL INJ (09:08)
--- NOTE | 2024-02-24 09:10 | W.PM.PROCNOT ---
Date of procedure: 02/24/24 Pre-op diagnosis: Pain due to lumbar spondylosis without myelopathy Post-op diagnosis: same as pre-op Procedure: Procedure: Bilateral L4-5, L5-S1 medial branch block Medications: Bupivacaine 0.25% 6cc The patient was seen and examined in the preoperative holding area.? An informed consent was obtained and placed on the chart.? The patient was brought to the medical procedure unit and placed in the prone position.? A timeout was completed verifying correct patient, procedure site, positioning, plan, and special equipment.? Using aseptic technique, the needle was placed at left L4. Under direct fluoroscopic visualization a Quincke-tipped spinal needle was advanced to the junction of the superior articulating process with the transverse process at the designated medial branch segment.? Preceded by negative aspiration, the above-mentioned injectate was placed in 1 mL aliquots.? The procedure was repeated at left L5, S1.? The needle was removed and insertion site was covered. The same procedure, at the same levels, was completed on the right side. The patient was taken to the postprocedural recovery area and monitored for an appropriate length of time before found suitable for discharge in the company of a responsible adult. Anesthesia: Local Surgeon: Zacarias Pike Pathology: none sent Condition: stable Disposition: no change
== END 2024-02-24 09:13 | disposition home or self-care (01) ==
LOC: SURGOUT 08:26
PROVIDERS: PCP Family Medicine; Visit Provider Anesthesiology
DX: M47.816 Spondylosis without myelopathy or radiculopathy, lumbar region (principal); Z79.84 Long term (current) use of oral hypoglycemic drugs
CPT/HCPCS: 36415; 64493; 64494; 82948; J0665

== ENCOUNTER 2024-02-24 19:48 | Emergency (ER) | payer MEDICARE, MEDICAID, SELFPAY ==
--- OUTSIDE RECORDS SUMMARY | 2024-02-24 20:02 | XMS_ITS | CCD ---
Author Organization [facility] Care Team Providers Care Inspector Rubber Stamp Die Name Role Phone Kesha Trujillo Unavailable Chepe Harriet Unavailable Hannah Magallanes Unavailable SONA, DR HANNAH Jovel Admitting Unavailable MAGALLANES, DR HANNAH Jovel Attending Unavailable MAGALLANES, DR HANNAH Jovel Primary Care Unavailable MAGALLANES, DR HANNAH Jovel Consulting Unavailable TAVERAS, RUBI Consulting Unavailable OLEXA, KESHA Admitting Unavailable OLEXA, KESHA Attending Unavailable MAGALLANES, DR HANNAH Jovel Primary Care Unavailable VAN BUREN, DR BARBIE Goldberg Consulting Unavailable OLEXA, KESHA [...] Care Physician Edin, Barbie Tellez Referring Unavailable Pocos, Barbie Tellez Attending Unavailable Pocdoron, Barbie Tellez Admitting Unavailable Hannah Magallanes MD Primary Care Provider POCDORON, BARBIE Tellez Attending Unavailable POCOSBARBIE Referring Unavailable POCOS, BARBIE Tellez Attending Unavailable POCOS, BARBIE Tellez Attending Unavailable Gieshaitis , Zacarias Miranda Attending Unavailable Gieshaitis , Zacarias Miranda Attending Unavailable Allergies Allergy Classification Reported Allergen(s) Allergy Type Date of Onset Reaction(s) Facility (20 sources) Ibuprofen Drug Allergy [facility] [place] Other (20 sources) olodaterol / tiotropium Drug Allergy shortness of breath [facility] [place] Other (20 sources) CT Scan dye Propensity to adverse reactions [facility] [place] Other (4 sources) Ibuprofen Drug Allergy 08-19-18 80 [facility] Repository (2 sources) Iodine (And Iodine Containting Drugs) Drug allergy (disorder) 09-07-19 16 [facility] Repository (1 source) NSAIDs Drug allergy (disorder) [facility] Repository (20 sources) fentaNYL Drug Allergy 12-05-19 24 Unknown, [facility] (4 sources) Ibuprofen Drug Allergy 01-15-20 15 [facility] (20 sources) Ofloxacin Drug Allergy 12-05-19 24 Unknown, [facility] (3 sources) zafirlukast Drug Allergy 01-15-[address] [facility] [place] Other (20 sources) Zafirlukast *ANTIASTHMATIC AND BRONCHODILATOR AGEN Propensity to adverse reactions Unknown [facility] [place] Other (20 sources) Ibuprofen & Diet Manage Prod *ANALGESICS - ANTI-IN Propensity to adverse reactions Unknown [facility] [facility] [place] Other (3 sources) Allergies Reconciled Propensity to adverse reactions Unknown [employer] Other (20 sources) Iodinated contrast media (substance) Drug allergy 06-03-20 19 Rash [employer] Other (3 sources) patient allergy list reviewed by nurse or physicia Propensity to adverse reactions 10-05-19 16 Comment:Done [employer] Other (2 sources) olodaterol Drug Allergy 12-05-19 24 shortness of breath [facility] (2 sources) tiotropium Drug Allergy 12-05-19 shortness of breath [facility] (2 sources) Iodinated Contrast Media Allergy to substance 12-05-19 [facility] (2 sources) Ibuprofen & Diet Manage Prod * Allergy to substance 12-04-19 [facility] (2 sources) Zafirlukast *ANTIASTHMATIC AND Allergy to substance 12-04-19 [facility] Medications Current Medications Medication Drug Class(es) [...] as needed Orally every 6 hrs Active [id number] 200 actuat albuterol 0.09 mg/actuat metered dose [...] ) Start: 07-19-2023 take [address] [facility] in the morning glipiZIDE-metFORMIN (Metaglip) 5-500 MG tablet Take 2 tablets by mouth in the morning and 2 tablets before bedtime. 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; Translations: [OTH BRAKE ADJUSTER CURRENT DRUG THERAPY] Onset: 12-29-2021 Episodic Other [...] Basophils (Bld) [#/Vol] 0.1 10 3/uL 0.0-0.1 [facility] Basophils/100 WBC Auto (Bld) on 12-05-2023 Basophils/100 WBC (Bld) 0.9 % 0.2-2.0 [facility] Eosinophils/100 WBC Auto (Bl d)on 12-05-2023 Eosinophils/100 WBC (Bld) 2.7 % 0.9-7.0 [facility] Erythrocyte distribution wid th Auto (RBC) [Ratio]on 12-05-2023 Erythrocyte distribution width (RBC) [Ratio] 13.1 % 11.0-15.0 [facility] Estimated glomerular filtrat ion rate (GFR) non- Americanon 12-05-2023 GFR/1.73 sq M.predicted among non-blacks MDRD (S/P/Bld) [Vol rate/Area] mL/min/{1.73_m2} >=60 [facility] Glucose mean value [Mass/vol ume] in Blood Estimated from glycated hemoglobinon 12-05-2023 Average glucose Estimated from glycated hemoglobin (Bld) [Mass/Vol] 171 mg/dL [facility] Hematocrit Auto (Bld) [Volum e fraction]on 12-05-2023 Hematocrit (Bld) [Volume fraction] 48.9 % 42.0-54.0 [facility] Hemoglobin [Mass/volume] in Bloodon 12-05-2023 Hemoglobin (Bld) [Mass/Vol] 16.0 g/dL 14.0-18.0 [facility] Laboratory - Chemistry and C hemistry - challengeon 12-05-2023 Calcium [Mass/Vol] 9.7 mg/dL 8.5-10.1 [facility] Chloride [Moles/Vol] 102 mmol/L 98-107 [facility] CO2 [Moles/Vol] 27.6 mmol/L 21.0-32.0 [facility] Creatinine [Mass/Vol] 1.01 mg/dL 0.70-1.30 [facility] GFR/1.73 sq M.predicted MDRD (S/P/Bld) [Vol rate/Area] mL/min/{1.73_m2} >=60 [facility] Glucose [Mass/Vol] 156 mg/dL 74-106 [facility] Potassium [Moles/Vol] 4.4 mmol/L 3.5-5.1 [facility] Sodium [Moles/Vol] 139 mmol/L 136-145 [facility] Urea nitrogen [Mass/Vol] 13.0 mg/dL 7.0-18.0 [facility] Urea nitrogen/Creatinine [Mass ratio] 12.9 mg/mg [facility] Laboratory - Hematology and Cell countson 12-05-2023 ESR (Bld) [Velocity] 17 mm/h <=20 [facility] HbA1c (Bld) [Mass fraction] 7.6 % 4.5-6.2 [facility] Comment on above: ADA RECOMMENDED LIMI T 4.0 - 6.0ADA THERAPEUTIC TARGET < 7.0ACTION SUGGESTED> 7.0 Immature granulocytes/100 WBC (Bld) 0.4 % 0.0-0.5 [facility] Leukocytes [#/volume] correc jean claude for nucleated erythrocytes in Blood by Automated counon 12-05-2023 WBC corrected for nucl RBC Auto (Bld) [#/Vol] 7.7 10 3/uL 4.0-11.0 [facility] Lymphocytes Auto (Bld) [#/Vo l]on 12-05-2023 Lymphocytes (Bld) [#/Vol] 2.4 10 3/uL 1.2-3.8 [facility] Lymphocytes/100 WBC Auto (Bl d)on 12-05-2023 Lymphocytes/100 WBC (Bld) 31.2 % 20.5-60.0 [facility] MCH Auto (RBC) [Entitic mass ]on 12-05-2023 MCH (RBC) [Entitic mass] 28.5 pg 25.9-34.0 [facility] MCHC Auto (RBC) [Mass/Vol]on 12-05-2023 MCHC (RBC) [Mass/Vol] 32.7 g/dL 29.9-35.2 [facility] MCV Auto (RBC) [Entitic vol] on 12-05-2023 MCV (RBC) [Entitic vol] 87.0 fL 80.0-94.0 [facility] Monocytes Auto (Bld) [#/Vol] on 12-05-2023 Monocytes (Bld) [#/Vol] 0.7 10 3/uL 0.3-0.8 [facility] Monocytes/100 WBC Auto (Bld) on 12-05-2023 Monocytes/100 WBC (Bld) 9.5 % 1.7-12.0 [facility] Neutrophils Auto (Bld) [#/Vo l]on 12-05-2023 Neutrophils (Bld) [#/Vol] 4.2 10 3/uL 1.4-6.5 [facility] Neutrophils/100 WBC Auto (Bl d)on 12-05-2023 Neutrophils/100 WBC (Bld) 55.3 % 43.0-75.0 [facility] No Panel Informationon 12-04 Eosinophils # (Auto) 0.2 10 3/uL 0.0-0.7 [facility] Immature Granulocyte # (Auto) 0.03 10 3/uL 0.00-0.03 [facility] Platelet mean volume Auto (B ld) [Entitic vol]on 12-05-2023 Platelet mean volume (Bld) [Entitic vol] 8.6 fL 9.5-13.5 [facility] Platelets Auto (Bld) [#/Vol] on 12-05-2023 Platelets (Bld) [#/Vol] 330 10 3/uL 150-450 [facility] RBC Auto (Bld) [#/Vol]on RBC (Bld) [#/Vol] 5.62 10 6/uL 4.70-6.10 [facility] Serum or plasma anion gap de terminationon 12-05-2023 Anion gap [Moles/Vol] 13.8 mmol/L [facility] Magnesiumon 07-02-2023 Magnesium [Mass/Vol] 2.4615731 mg/dL Normal 1.8-2.4 mg/dL [employer] Other Magnesium see note [employer] Other MRI Shoulder w/o Contrast [facility] 05-31-2023 MRI Shoulder w/o Contrast Right Exam Date/Time: 05/30/2023 14:25 EDT Reason for Exam: [id number] Report IMPRESSION: Full-thickness rotator cuff tearing involving [...] TAMARA Technologist: STELLA Technical Comments None Normal [facility] Consent for Treatmenton 05-19 Consent for Treatment [id number] .00TIFF Normal [facility] RAD - MRI Screening Formon 1 RAD - MRI Screening Form [id number]. 00TIFF Normal [facility] Physician Orderon 05-09-2023 Physician Order [id number]# 1.00CD:127 Normal [facility] XR CHEST 2 Von 11-24-2022 XR [...] RUBI TAVERAS Date: 2022-11-24 17:17 Normal [facility] CT LUNG CANCER SCREENINGon 1 09-20-2021 [...] YEISON NAVAS Date: 2022-07-20 07:18 Normal [facility] CBC AUTO DIFFon 06-07-2022 BASO # 0.1 103/ul Normal 0.0-0.1 [facility] Comment on above: Performed By: #### C BC #### [facility] [address] [place] [address] Dr. Eran Chacon Basophils/100 WBC (Bld) 0.6 % Normal 0.2-2.0 [facility] Comment on above: Performed By: #### C BC #### [facility] [address] [place] [address] Dr. Eran Chacon EO # 0.3 103/ul Normal 0.0-0.7 [facility] Comment on above: Performed By: #### C BC #### [facility] [address] [place] [address] Dr. Eran Chacon Eosinophils/100 WBC (Bld) 3.3 % Normal 0.9-7.0 [facility] Comment on above: Performed By: #### C BC #### [facility] [address] [place] [address] Dr. Eran Chacon Erythrocyte distribution width (RBC) [Ratio] 12.9 % Normal 11.0-15.0 [facility] Comment on above: Performed By: #### C BC #### [facility] [address] [place] [address] Dr. Eran Chacon Hematocrit (Bld) [Volume fraction] 47.7 % Normal 42.0-54.0 [facility] Comment on above: Performed By: #### C BC #### [facility] [address] [place] [address] Dr. Eran Chacon Hemoglobin (Bld) [Mass/Vol] 15.9 g/dL Normal 14.0-18.0 [facility] Comment on above: Performed By: #### C BC #### [facility] [address] [place] [address] Dr. Eran Chacon IG # 0.02 10e3/ul Normal 0.00-0.03 [facility] Comment on above: Performed By: #### C BC #### [facility] [address] [place] [address] Dr. Eran Chacon IG % 0.2 % Normal 0.0-0.5 [facility] Comment on above: Performed By: #### C BC #### [facility] [address] [place] [address] Dr. Eran Chacon LYMPH # 3.4 103/ul Normal 1.2-3.8 [facility] Comment on above: Performed By: #### C BC #### [facility] [address] [place] [address] Dr. Eran Chacon Lymphocytes/100 WBC (Bld) 34.5 % Normal 20.5-60.0 [facility] Comment on above: Performed By: #### C BC #### [facility] [address] [place] [address] Dr. Eran Chacon MANUAL DIFF REQ NO Normal [facility] Comment on above: Performed By: #### C BC #### [facility] [address] [place] [address] Dr. Eran Chacon MCH (RBC) [Entitic mass] 29.6 pg Normal 25.9-34.0 [facility] Comment on above: Performed By: #### C BC #### [facility] [address] [place] [address] Dr. Eran Chacon MCHC (RBC) [Mass/Vol] 33.3 g/dL Normal 29.9-35.2 [facility] Comment on above: Performed By: #### C BC #### [facility] [address] [place] [address] Dr. Eran Chacon MCV (RBC) [Entitic vol] 88.8 fL Normal 80.0-94.0 [facility] Comment on above: Performed By: #### C BC #### [facility] [address] [place] [address] Dr. Eran Chacon MONO # 0.9 103/ul Critically high 0.3-0.8 [facility] Comment on above: Performed By: #### C BC #### [facility] [address] [place] [address] Dr. Eran Chacon Monocytes/100 WBC (Bld) 9.3 % Normal 1.7-12.0 [facility] Comment on above: Performed By: #### C BC #### [facility] [address] [place] [address] Dr. Eran Chacon NEUT # 5.2 103/ul Normal 1.4-6.5 [facility] Comment on above: Performed By: #### C BC #### [facility] [address] [place] [address] Dr. Eran Chacon Neutrophils/100 WBC (Bld) 52.1 % Normal 43.0-75.0 [facility] Comment on above: Performed By: #### C BC #### [facility] [address] [place] [address] Dr. Eran Chacon Platelet mean volume (Bld) [Entitic vol] 8.8 fL Critically low 9.5-13.5 [facility] Comment on above: Performed By: #### C BC #### [facility] [address] [place] [address] Dr. Eran Chacon PLT 287 103/ul Normal 150-450 [facility] Comment on above: Performed By: #### C BC #### [facility] [address] [place] [address] Dr. Eran Chacon RBC 5.37 106/ul Normal 4.70-6.10 [facility] Comment on above: Performed By: #### C BC #### [facility] [address] [place] [address] Dr. Eran Chacon WBC 9.9 103/ul Normal 4.0-11.0 [facility] Comment on above: Performed By: #### C BC #### [facility] [address] [place] [address] Dr. Eran Chacon ER URINE PROFILEon 2 Bilirubin Ql (U) Negative Normal NEGATIVE [facility] Comment on above: Performed By: #### Med SHER UMICRO #### [facility] [address] [place] [address] Dr. Eran Chacon Clarity (U) CLEAR Normal CLEAR [facility] Comment on above: Performed By: #### Med SHER UMICRO #### [facility] [address] [place] [address] Dr. Eran Chacon Color (U) YELLOW Normal YELLOW [facility] Comment on above: Performed By: #### Med SHER UMICRO #### [facility] [address] [place] [address] Dr. Eran Chacon ERUAHD A micrscopic examination will be performed if indicated. Normal [facility] Comment on above: Performed By: #### ERMELINDA BATESICRO #### [facility] [address] [place] [address] Dr. Eran Chacon Glucose Ql (U) 500 mg/dl Abnormal NEGATIVE The [facility] Comment on above: Performed By: #### BISHNU BATESRO #### [facility] [address] [place] [address] Dr. Eran Chacon Hemoglobin Ql (U) TRACE-INTACT Abnormal NEGATIVE [facility] Comment on above: Performed By: #### HANNA BATES #### [facility] [address] [place] [address] Dr. Eran Chacon Ketones Ql (U) Negative Normal NEGATIVE [facility] Comment on above: Performed By: #### BISHNU BATESRO #### [facility] [address] [place] [address] Dr. Eran Chacon LEUKOCYTES Negative Normal NEGATIVE [facility] Comment on above: Performed By: #### HANNA BATES #### [facility] [address] [place] [address] Dr. Eran Chacon Nitrite Ql (U) Negative Normal NEGATIVE [facility] Comment on above: Performed By: #### BISHNU BATESRO #### [facility] [address] [place] [address] Dr. Eran Chacon pH (U) 6.0 [pH] Normal 5-9 [facility] Comment on above: Performed By: #### HANNA BATES #### [facility] [address] [place] [address] Dr. Eran Chacon SPEC GRAVITY 1.025 Normal 1.005-<=1.025 [facility] Comment on above: Performed By: #### BISHNU BATESRO #### [facility] [address] [place] [address] Dr. Eran Chacon UA PROTEIN Negative Normal NEGATIVE/ TRACE [facility] Comment on above: Performed By: #### BISHNU BATESRO #### [facility] [address] [place] [address] Dr. Eran Chacon UR MICRO IND INDICATED Normal [facility] Comment on above: Performed By: #### HANNA BATES #### [facility] [address] [place] [address] Dr. Eran Chacon Urobilinogen Qn (U) 0.2 {Aureliano'U}/dL Normal 0.2 - 1. 0 [facility] Comment on above: Performed By: #### E HANNA SHER #### [facility] [address] [place] [address] Dr. Eran Chacon PROF 14(COMP METB)on 022 Albumin [Mass/Vol] 4.0 g/dL Normal 3.4-5.0 [facility] Comment on above: Performed By: #### C MP #### [facility] [address] [place] [address] Dr. Eran Chacon Albumin/Globulin [Mass ratio] 1.2 {ratio} Normal [facility] Comment on above: Performed By: #### C MP #### [facility] [address] [place] [address] Dr. Eran Chaocn ALP [Catalytic activity/Vol] 104 U/L Normal 46-116 [facility] Comment on above: Performed By: #### C MP #### [facility] [address] [place] [address] Dr. Eran Chacon ALT [Catalytic activity/Vol] 28 U/L Normal 16-63 [facility] Comment on above: Performed By: #### C MP #### [facility] [address] [place] [address] Dr. Eran Chacon Anion gap [Moles/Vol] 7.2 mmol/L Normal [facility] Comment on above: Performed By: #### C MP #### [facility] [address] [place] [address] Dr. Eran Chacon AST [Catalytic activity/Vol] 14 U/L Critically low 15-37 [facility] Comment on above: Performed By: #### C MP #### [facility] [address] [place] [address] Dr. Eran Chacon Bilirubin [Mass/Vol] 0.4 mg/dL Normal 0.2-1.0 [facility] Comment on above: Performed By: #### C MP #### [facility] [address] [place] [address] Dr. Eran Chacon Calcium [Mass/Vol] 9.0 mg/dL Normal 8.5-10.1 [facility] Comment on above: Performed By: #### C MP #### [facility] [address] [place] [address] Dr. Eran Chacon Chloride [Moles/Vol] 103 mmol/L Normal 98-107 [facility] Comment on above: Performed By: #### C MP #### [facility] [address] [place] [address] Dr. Eran Chacon CO2 [Moles/Vol] 30.0 mmol/L Normal 21.0-32.0 [facility] Comment on above: Performed By: #### C MP #### [facility] [address] [place] [address] Dr. Eran Chacon Creatinine [Mass/Vol] 0.85 mg/dL Normal 0.70-1.30 [facility] Comment on above: Performed By: #### C MP #### [facility] [address] [place] [address] Dr. Eran Chacon EGFR-AF [place]LANDER >60 Normal >=60 [facility] Comment on above: Performed By: #### C MP #### [facility] [address] [place] [address] Dr. Eran Chacon EGFR-NON AF [place]ER >60 Normal >=60 [facility] Comment on above: Performed By: #### C MP #### [facility] [address] [place] [address] Dr. Eran Chacon Globulin (S) [Mass/Vol] 3.3 g/dL Normal [facility] Comment on above: Performed By: #### C MP #### [facility] [address] [place] [address] Dr. Eran Chacon Glucose [Mass/Vol] 165 mg/dL Critically high 74-106 [facility] Comment on above: Performed By: #### C MP #### [facility] [address] [place] [address] Dr. Eran Chacon Potassium [Moles/Vol] 4.2 mmol/L Normal 3.5-5.1 [facility] Comment on above: Performed By: #### C MP #### [facility] [address] [address] [address] Eran Chacon Protein [Mass/Vol] 7.3 g/dL Normal 6.4-8.2 [facility] Comment on above: Performed By: #### C MP #### [facility] [address] [address] [address] Eran Chacon Sodium [Moles/Vol] 136 mmol/L Normal 136-145 [facility] Comment on above: Performed By: #### C MP #### [facility] [address] [place] [address] Dr. Eran Chacon Urea nitrogen [Mass/Vol] 10.0 mg/dL Normal 7.0-18.0 [facility] Comment on above: Performed By: #### C MP #### [facility] [address] [place] [address] Dr. Eran Chacon Urea nitrogen/Creatinine [Mass ratio] 11.8 mg/mg Normal [facility] Comment on above: Performed By: #### C MP #### [facility] [address] [place] [address] Dr. Eran Chacon URINE MICROSCOPIC ONLYon BACTERIA NONE SEEN Normal NONE SEEN [facility] Comment on above: Performed By: #### Med SHER UMICRO #### [facility] [address] [place] [address] Dr. Eran Chacon Bacteria identified Cx Nom (U) NOT INDICATED Normal [facility] Comment on above: Performed By: #### Med SHER UMICRO #### [facility] [address] [place] [address] Dr. Eran Chacon CAST NONE SEEN Normal NONE SEEN [facility] Comment on above: Performed By: #### Med SHER UMICRO #### [facility] [address] [place] [address] Dr. Eran Chacon Crystals LM Nom (Urine sed) NONE SEEN Normal NONE SEEN [facility] Comment on above: Performed By: #### Med SHER UMICRO #### [facility] [address] [place] [address] Dr. Eran Chacon Epithelial cells LM Ql (Urine sed) RARE Normal NONE SEEN /RARE [facility] Comment on above: Performed By: #### BISHNU BATESRO #### [facility] [address] [place] [address] Dr. Eran Chacon MUCOUS NONE SEEN Normal NONE SEEN [facility] Comment on above: Performed By: #### Med SHER UMKATHERINRO #### [facility] [address] [place] [address] Dr. Eran Chacon RBC 0-2 Normal 0-2 [facility] Comment on above: Performed By: #### BISHNU BATESRO #### [facility] [address] [place] [address] Dr. Eran Chacon WBC 2-5 Abnormal NONE SEEN [facility] Comment on above: Performed By: #### BISHNU BATESRO #### [facility] [address] [place] [address] Dr. Eran Chacon MRI SHOULDER LT WO [...] YEISON NAVAS Date: 2022-02-02 17:09 Normal [facility] XR shoulder LT min 2V*on XR shoulder LT min 2V* [facility] Main [place] [address] [place] [address] XRay Report Signed Patient: Nicholas Ziegler MR#: [id number] : 1960 Acct:[id number] Age/Sex: 61 / M ADM Date: 01/25/22 Loc: [facility] Room: Type: [facility] Attending Dr: Kesha Trujillo MD Ordering Provider: [...] Otilia Nunez M.D.01/25/2022 11:41 AM Dictation Location: [place] [address] Transcribed By: NATALIE 01/25/22 1141 Dictated By: Otilia Nunez MD 01/25/22 1139 Signed By: 01/25/22 1141 Normal [facility] Vital Signs Date Time Vital Sign Value Performing Clinician Facility 12-17-2023 08:54-0400 Body height 175.26 cm [facility] 12-17-2023 08:54-0400 Body mass index (BMI) [Ratio] 35.2 kg/m2 [facility] 12-17-2023 08:54-0400 Body weight 108.4 kg [facility] 12-17-2023 08:54-0400 Diastolic blood pressure 76 mm[Hg] [facility] 12-17-2023 08:54-0400 Heart rate 76 /min [facility] 12-17-2023 08:54-0400 Systolic blood pressure 154 mm[Hg] [facility] 12-05-2023 08:52-0400 Body height 175.26 cm [facility] 12-05-2023 08:52-0400 Body mass index (BMI) [Ratio] 35 kg/m2 [facility] 12-05-2023 08:52-0400 Body weight 107.67 kg [facility] 12-05-2023 08:52-0400 Diastolic blood pressure 78 mm[Hg] [facility] 12-05-2023 08:52-0400 Heart rate 69 /min [facility] 12-05-2023 08:52-0400 Systolic blood pressure 147 mm[Hg] [facility] 09-13-2023 13:30-0500 Body height 175.26 cm Hannah Magallanes Other [facility] 09-13-2023 13:30-0500 Body mass index (BMI) [Ratio] 33.22 kg/m2 Hannah Magallanes Other [facility] Other 09-13-2023 13:30-0500 Body temperature 98.4 [degF] Hannah Magallanes Other [facility] Other 09-13-2023 13:30-0500 Body weight 102.06 kg Hannah Magallanes Other [facility] Other 09-13-2023 13:30-0500 Body weight 102.05 kg [facility] 09-13-2023 13:30-0500 Diastolic blood pressure 80 mm[Hg] Hannah Magallanes Other [facility] 09-13-2023 13:30-0500 SaO2% (BldA) [Mass fraction] 93 % Hannah Magallanes Other [facility] Other 09-13-2023 13:30-0500 Systolic blood pressure 118 mm[Hg] Hannah Magallanes Other [facility] 08-13-2023 10:30-0500 Body height 175.26 cm Hannah Magallanes Other [facility] Other 08-13-2023 10:30-0500 Body mass index (BMI) [Ratio] 33.9 kg/m2 Hannah Magallanes Other [facility] Other 08-13-2023 10:30-0500 Body weight 104.15 kg Hannah Magallanes Other [facility] Other 08-13-2023 10:30-0500 Diastolic blood pressure 78 mm[Hg] Hannah Magallanes Other [facility] Other 08-13-2023 10:30-0500 Systolic blood pressure 124 mm[Hg] Hannah Magallanes Other [facility] Other 06-25-2023 08:45-0500 Body height 175.26 cm Hannah Magallanes Other [facility] Other 06-25-2023 08:45-0500 Body mass index (BMI) [Ratio] 33.37 kg/m2 Hannah Magallanes Other [facility] Other 06-25-2023 08:45-0500 Body temperature 96.5 [degF] Hannah Magallanes Other [facility] Other 06-25-2023 08:45-0500 Body weight 102.51 kg Hannah Magallanes Other [facility] Other 06-25-2023 08:45-0500 Diastolic blood pressure 85 mm[Hg] Hannah Magallanes Other [facility] Other 06-25-2023 08:45-0500 Systolic blood pressure 149 mm[Hg] Hannah Magallanes Other [facility] Other 05-28-2023 10:45-0400 Body height 175.26 cm Hannah Magallanes Other [facility] Other 05-28-2023 10:45-0400 Body mass index (BMI) [Ratio] 33.52 kg/m2 Hannah Magallanes Other [facility] Other 05-28-2023 10:45-0400 Body weight 102.97 kg Hannah Magallanes Other [facility] Other 05-28-2023 10:45-0400 Diastolic blood pressure 82 mm[Hg] Hannah Magallanes Other [facility] Other 05-28-2023 10:45-0400 Systolic blood pressure 147 mm[Hg] Hannah Magallanes Other [facility] Other 2023 08:45-0400 Body height 175.26 cm Hannah Magallanes Other [facility] [employer] Other 2023 08:45-0400 Body mass index (BMI) [Ratio] 33.52 kg/m2 Hannah Magallanes Other [facility] Other 2023 08:45-0400 Body weight 102.97 kg Hannah Magallanes Other [facility] Other 2023 08:45-0400 Diastolic blood pressure 85 mm[Hg] Hannah Magallanes Other [facility] Other 2023 08:45-0400 Systolic blood pressure 156 mm[Hg] Hannah Magallanes Other [facility] Other 04-30-2023 09:45-0400 Body height 175.26 cm Hannah Magallanes Other [facility] Other 04-30-2023 09:45-0400 Body mass index (BMI) [Ratio] 34.32 kg/m2 Hannah Magallanes Other [facility] Other 04-30-2023 09:45-0400 Body temperature 96.2 [degF] Hannah Magallanes Other [facility] Other 04-30-2023 09:45-0400 Body weight 105.42 kg Hannah Magallanes Other [facility] Other 04-30-2023 09:45-0400 Diastolic blood pressure 78 mm[Hg] Hannah Magallanes Other [facility] Other 04-30-2023 09:45-0400 Respiratory rate 16 /min Hannah Magallanes Other [facility] Other 04-30-2023 09:45-0400 Systolic blood pressure 146 mm[Hg] Hannah Magallanes Other [facility] Other 02-20-2023 09:15-0400 Body height 175.26 cm Hannah Magallanes Other [facility] Other 02-20-2023 09:15-0400 Body mass index (BMI) [Ratio] 33.46 kg/m2 Hannah Magallanes Other [facility] Other 02-20-2023 09:15-0400 Body weight 102.79 kg Hannah Magallanes Other [facility] Other 02-20-2023 09:15-0400 Diastolic blood pressure 77 mm[Hg] Hannah Magallanes Other [facility] Other 02-20-2023 09:15-0400 Systolic blood pressure 131 mm[Hg] Hannah Magallanes Other [facility] Other 01-17-2023 08:45-0400 Body height 175.26 cm Hannah Magallanes Other [facility] Other 01-17-2023 08:45-0400 Body mass index (BMI) [Ratio] 33.37 kg/m2 Hannah Magallanes Other [facility] Other 01-17-2023 08:45-0400 Body weight 102.51 kg Hannah Magallanes Other [facility] Other 01-17-2023 08:45-0400 Diastolic blood pressure 79 mm[Hg] Hannah Magallanes Other [facility] Other 01-17-2023 08:45-0400 Systolic blood pressure 128 mm[Hg] Hannah Magallanes Other [facility] Other 11-23-2022 09:30-0400 Body height 175.26 cm Hannah Magallanes Other [facility] Other 11-23-2022 09:30-0400 Body mass index (BMI) [Ratio] 33.96 kg/m2 Hannah Magallanes Other [facility] Other 11-23-2022 09:30-0400 Body weight 104.33 kg Hannah Magallanes Other [facility] Other 11-23-2022 09:30-0400 Diastolic blood pressure 72 mm[Hg] Hannah Magallanes Other [facility] Other 11-23-2022 09:30-0400 Systolic blood pressure 122 mm[Hg] Hannah Magallanes Other [facility] Other 09-04-2022 11:30-0500 Body height 175.26 cm Hannah Magallanes Other [facility] Other 09-04-2022 11:30-0500 Body mass index (BMI) [Ratio] 33.52 kg/m2 Hannah Magallanes Other [facility] Other 09-04-2022 11:30-0500 Body weight 102.97 kg Hannah Magallanes Other [facility] Other 09-04-2022 11:30-0500 Diastolic blood pressure 80 mm[Hg] Hannah Magallanes Other [facility] Other 09-04-2022 11:30-0500 SaO2% (BldA) [Mass fraction] 95 % Hannah Magallanes Other [facility] Other 09-04-2022 11:30-0500 Systolic blood pressure 122 mm[Hg] Hannah Magallanes Other [facility] Other 02-06-2022 12:45-0400 Body height 175.26 cm Kesha Olexa Other [facility] Other 02-06-2022 12:45-0400 Body mass index (BMI) [Ratio] 31.01 kg/m2 Kesha Olexa Other [facility] Other 02-06-2022 12:45-0400 Body weight 95.26 kg Kesha Olexa Other [facility] Other 05-26-2021 13:15-0400 Body height 175.26 cm Harriet Ginty Other [facility] Other 05-26-2021 13:15-0400 Body mass index (BMI) [Ratio] 31.01 kg/m2 Harriet Ginty Other [facility] Other 05-26-2021 13:15-0400 Body temperature 98.3 [degF] Harriet Ginty Other [facility] Other 05-26-2021 13:15-0400 Body weight 95.26 kg Harriet Ginty Other [facility] Other 05-26-2021 13:15-0400 SaO2% (BldA) [Mass fraction] 96 % Harriet Ginty Other [facility] Other Encounters Encounter Date Encounter Type Care Provider Facility Start: 02-03-2024 End: 02-03-2024 ambulatory Zacarias Pike MD Facility: [facility] Start: 01-20-2024 End: 01-20-2024 ambulatory Zacarias Pike MD Facility:[facility] Start: 12-17-2023 End: 12-17-2023 ambulatory [facility] Work Phone: Start: 12-17-2023 End: 12-17-2023 Patient encounter procedure [facility] Work Phone: Start: 12-05-2023 End: 12-05-2023 ambulatory [facility] Work Phone: Start: 12-05-2023 End: 12-05-2023 Patient encounter procedure [facility] Work Phone: Start: 10-23-2023 Non-patient / Non-visit [facility] Work Phone: Start: 10-08-2023 Non-patient / Non-visit [facility] Work Phone: Start: 10-07-2023 End: 10-07-2023 ambulatory BARBIE TAPIA Not Available Start: 09-18-2023 End: 09-18-2023 ambulatory Hannah Magallanes Other [facility] Other Start: 09-18-2023 Telephone encounter Hannah Magallanes [facility] Start: 09-13-2023 End: 09-13-2023 ambulatory Hannah Magallanes Other [employer] Other Start: 09-13-2023 Office outpatient vi sit 15 minutes Hannah Magallanes [facility] Start: 09-13-2023 End: 09-13-2023 Patient encounter procedure [facility]- Start: 09-11-2023 Telephone encounter [place] [...] 09-10-2023 End: 09-10-2023 ambulatory Hannah Magallanes Other [facility] Other Start: 09-10-2023 Telephone encounter Hannah Magallanes [facility] Start: 09-06-2023 End: 09-06-2023 ambulatory Hannah Magallanes Other [facility] Other Start: 09-06-2023 Telephone encounter Hannah Magallanes [facility] Start: 09-02-2023 End: 09-02-2023 ambulatory HI POCOS Not Available Start: 08-20-2023 End: 08-20-2023 ambulatory Hannah Sona Other [facility] Other Start: 08-20-2023 Telephone encounter Hannah Sona [facility] Start: 08-13-2023 End: 08-13-2023 ambulatory Hannah Sona Other [facility] Other Start: 08-13-2023 Office outpatient vi sit 25 minutes Hannah Magallanes [facility] Start: 08-13-2023 Telephone encounter Hannah Sona [facility] Start: 08-06-2023 End: 08-06-2023 ambulatory Hannah Magallanes Other [facility] Other Start: 08-06-2023 Telephone encounter Hannah Sona [facility] Start: 07-29-2023 End: 07-29-2023 ambulatory HI POCOS Not Available Start: 07-22-2023 End: 07-22-2023 ambulatory Hannah Magallanes Other [facility] Other Start: 07-22-2023 Telephone encounter Hannah Sona [facility] Start: 07-19-2023 End: 07-19-2023 ambulatory Hannah Sona Other [facility] Other Start: 07-19-2023 Telephone encounter Hannah Sona [facility] Start: 07-18-2023 End: 07-18-2023 ambulatory Hannah Sona Other [facility] Other Start: 07-18-2023 Telephone encounter Hannah Sona [facility] Start: 07-02-2023 End: 07-02-2023 ambulatory Hannah Sona Other [facility] Other Start: 07-02-2023 Office outpatient vi sit 15 minutes Hannah Sona [facility] Start: 07-02-2023 Telephone encounter Hannah Magallanes [facility] Start: 06-25-2023 End: 06-25-2023 ambulatory aHnnah Sona Other [facility] Other Start: 06-25-2023 Office outpatient vi sit 15 minutes Hannah Sona [facility] Start: 06-21-2023 End: 06-21-2023 ambulatory Hannah Sona Other [facility] Other Start: 06-21-2023 Encounter by edmond owen Hannah Sona [facility] Start: 06-20-2023 End: 06-20-2023 ambulatory Hannah Sona Other [facility] Other Start: 06-20-2023 Telephone encounter Hannah Magallanes [facility] Start: 06-17-2023 End: 06-17-2023 ambulatory Hnanah Sona Other [employer] [facility] Other Start: 06-17-2023 Telephone encounter Hannah Magallanes [facility] Start: 06-10-2023 End: 06-10-2023 ambulatory Hannah Magallanes Other [facility] Other Start: 06-10-2023 Telephone encounter Hannah Magallanes [facility] Start: 06-03-2023 End: 06-03-2023 ambulatory Hannah Magallanes Other [facility] Other Start: 06-03-2023 Telephone encounter Hannah Magallanes [facility] Start: 05-30-2023 End: 05-31-2023 ambulatory Hi Pocos Facility:[facility] Start: 05-30-2023 End: 05-30-2023 Patient encounter procedure Hi Pocos [facility] Start: 05-28-2023 End: 05-28-2023 ambulatory Hannah Magallanes Other [employer] Other Start: 05-28-2023 Office outpatient vi sit 15 minutes Hannah Magallanes [facility] Start: 2023 End: 2023 ambulatory Hannah Magallanes Other [facility] [employer] Other Start: 2023 Office outpatient vi sit 15 minutes Hannah Magallanes [facility] Start: 05-16-2023 End: 05-16-2023 ambulatory Hannah Magallanes Other [facility] Other Start: 05-16-2023 Telephone encounter Hannah Magallanes [facility] Start: 04-30-2023 End: 04-30-2023 ambulatory Hannah Magallanes Other [facility] Other Start: 04-30-2023 Office outpatient vi sit 15 minutes Hannah Magallanes [facility] Start: 04-26-2023 End: 04-26-2023 ambulatory Hannah Magallanes Other [facility] Other Start: 04-26-2023 Telephone encounter Hannah Sona [facility] Start: 04-23-2023 End: 04-23-2023 ambulatory Hannah Sona Other [facility] Other Start: 04-23-2023 Telephone encounter Hannah Magallanes [facility] Start: 03-25-2023 End: 03-25-2023 ambulatory Hannah Magallanes Other [facility] Other Start: 03-25-2023 Telephone encounter Hannah Magallanes [facility] Start: 03-06-2023 End: 03-06-2023 ambulatory Hannah Sona Other [facility] Other Start: 03-06-2023 Telephone encounter Hannah Magallanes [facility] Start: 02-20-2023 End: 02-20-2023 ambulatory Hannah Sona Other [facility] Other Start: 02-20-2023 Office outpatient vi sit 25 minutes Hannah Sona [facility] Start: 02-05-2023 End: 02-05-2023 ambulatory Hannah Sona Other [facility] Other Start: 02-05-2023 Telephone encounter Hannah Magallanes [facility] Start: 01-21-2023 End: 01-21-2023 ambulatory Hannah Magallanes Other [facility] Other Start: 01-21-2023 Telephone encounter Hannah Sona [facility] [employer] Start: 01-17-2023 End: 01-17-2023 ambulatory Hannah Magallanes Other [facility] Other Start: 01-17-2023 Office outpatient vi sit 15 minutes Hannah Sona [facility] Start: 12-24-2022 End: 12-24-2022 ambulatory Hannah Magallaens Other [facility] Other Start: 12-24-2022 Telephone encounter Hannah Magallanes [facility] Start: 12-03-2022 End: 12-03-2022 ambulatory Hannah Magallanes Other [facility] Other Start: 12-03-2022 Telephone encounter Hannah Magallanes [facility] Start: 11-27-2022 End: 11-27-2022 ambulatory Hannah Magallanes Other [facility] Other Start: 11-27-2022 Telephone encounter Hannah Magallanes [facility] Start: 11-26-2022 End: 11-26-2022 ambulatory Hannah Magallanes Other [facility] Other Start: 11-26-2022 Telephone encounter Hannah Magallanes [facility] Start: 11-24-2022 End: 11-25-[address] HANNAH MAGALLANES Facility:[facility] Start: 11-23-2022 End: 11-23-2022 ambulatory Hannah Magallanes Other [facility] Other Start: 11-23-2022 Office outpatient vi sit 15 minutes Hannah Magallanes [facility] Start: 11-05-2022 End: 11-05-2022 ambulatory Hannah Magallanes Other [facility] Other Start: 11-05-2022 Telephone encounter Hannah Magallanes [facility] Start: 10-03-2022 End: 10-03-2022 ambulatory Hannah Magallanes Other [facility] Other Start: 10-03-2022 Telephone encounter Hannha Magallanes [facility] Start: 09-04-2022 End: 09-04-2022 ambulatory Hannah Magallanes Other [facility] Other Start: 09-04-2022 Office outpatient vi sit 25 minutes Hannah Magallanes [facility] Start: 07-26-[address] HANNAH MAGALLANES Facil ity:[facility] Start: 07-19-2022 End: 07-20-[address] WILFREDO ENGLE Facility:[facility] Start: 06-07-2022 End: 06-07-[address] HANNAH MAGALLANES Facility:[facility] Start: 03-15-2022 ambulatory KESHA TRUJILLO Facility:[facility] Start: 02-06-2022 End: 02-06-2022 ambulatory Kesha Sharmamartin Other [facility] Other Start: 02-06-2022 Office outpatient vi sit 25 minutes Kesha Ronnie [facility] Start: 02-02-2022 End: 02-03-2022 ambulatory KESHA RONNIE Facility:[facility] Start: 12-28-2021 End: 12-28-[address] HANNAH MAGALLANES Facility:[facility] Start: 12-12-2021 End: 12-13-2021 ambulatory KESHA RONNIE [facility] Other Start: 12-12-2021 Office outpatient ne w 30 minutes Kesha Trujillo [facility] Start: 05-26-2021 Office outpatient vi [...] [facility] [address] [address] Barbie Tapia DO [address] [place] [address] [facility] XR Pelvis and Hip - bilateral Views [facility] Immunizations Immunization Date Immunization Notes Care Provider Fa cility 06-02-2018 Influenza, injectabl e, Madin Kyleigh Canine Kidney, preservative free, quadrivalent Argentina Clinton PT Work Phone: [facility] 05-17-2017 influenza virus vaccine, split virus (incl. purified surface antigen) Hannah Magallanes Other [employer] Other 05-17-2017 influenza virus vaccine, unspecified formulation [facility] 05-16-2017 influenza, injectabl e, quadrivalent, preservative free Argentina Clinton PT Work Phone: [facility] 06-28-2016 influenza, injectabl e, quadrivalent, preservative free Argentina Clinton PT Work Phone: [facility] 06-28-2016 tetanus and diphther ia toxoids, adsorbed, preservative free, for adult use (5 Lf of tetanus toxoid and 2 Lf of diphtheria toxoid) Hannah Magallanes Other [facility] 05-25-2015 influenza, seasonal, injectable, preservative free Argentina Clinton PT Work Phone: [facility] 05-25-2015 tetanus and diphther ia toxoids, adsorbed, preservative free, for adult use (5 Lf of tetanus toxoid and 2 Lf of diphtheria toxoid) Hannah Magallanes Other [facility] 06-15-1999 pneumococcal conjuga te vaccine, 7 valent Argentina Clinton PT Work Phone: [facility] Healthcare Payers Date Payer Category Payer Medicaid [id number] 2013 Medicare [id number] 1960 Unknown [id number] 2.16.84 0.1.896281.3.579.2.593 1960 Unknown [id number] 2.16.84 0.1.899410.3.579.2.593 1960 Unknown [id number] 2.16.84 0.1.742869.3.579.2.593 1960 Unknown [id number] 2.16.84 0.1.406946.3.579.2.593 1960 Unknown [id number] 2.16.84 0.1.906879.3.579.2.593 1960 Unknown [id number] 2.16.84 0.1.807951.3.579.2.593 1960 Unknown [id number] 2.16.84 0.1.771595.3.579.2.593 1960 Unknown [id number] 2.16.84 0.1.087375.3.579.2.593 1960 Unknown [id number] 2.16.8 40.1.023023.3.579.2.727 1960 Unknown [id number] 2.16.84 0.1.949472.3.579.2.1259 1960 Unknown [id number] 2.16.84 0.1.396509.3.579.2.1259 1960 Unknown [id number] 2.16.84 0.1.243062.3.579.2.1259 1960 Unknown [id number] 2.16.840 .1.286529.3.579.2.1259 1960 Unknown [id number] 2.16. 840.1.516772.3.579.2.196 1960 Unknown [id number] 2.16. 840.1.718709.3.579.2.196 1959 Medicaid [id number] 2. [id number] 1959 Medicare [id number] 2.1 [id number] Self-pay Self Pay [id number] Social History Date Type Detail Facility Start: 09-02-2023 Sex Assigned At [facility] Tobacco smoking status No Smokin g Status Entered [facility] Start: 03-27-2023 Tobacco smoking status NHIS Smokes tobacco daily [facility] Work Phone: History of tobacco use Cigarette Smoker N [facility] Start: 03-27-2023 End: 09-02-2023 Cigarettes smoked [...] Healthcare Start: 08-21-2023 Sexual orientation Heterosexual (finding) [facility] Start: 02-06-2017 Tobacco smoking status NHIS Ex-smoker (finding) [facility] Medical Equipment Procedure Code Equipment Code Equipment Original Text Equi pment Identifier Dates Accu-Chek Fast[employer]ix Lancet - Clinical Notes 05-26-2021 to 10-02-2023 Telephone Encounter - Maris Tavera - 10/02/2023 1:35 PM ESTTelephone Encounter - [place] Liang - 10/02/2023 1:35 PM EST Note Date & Type Note Facility 10-02-2023 Telephone encounter Note Form atting of this note might be different from the original. No attempts to hear back; closing referral. [facility] 10-02-2023 Miscellaneous Notes Formattin g of this note might be different from the original. No attempts to hear back; closing referral. documented in this encounter [facility] 09-13-2023 Evaluation note Encounter Date Diagnosis Assessment Notes Aug, Chronic obstructive pulmonary disease, unspecified (ICD-10 - J44.9) Finish antibiotics and prednisone as prescribed. Denies pulmonary referral at this time. Hasn't smoked since 09/08 and declines chantix or patches. Aug, Current smoker (ICD-10 - F17.200) [facility] Other 01-23-2024 Evaluation note* Encounter Date Diagnosis Assessment Notes Treatment Notes Treatment Clinical Notes Aug, Lumbar radicular pain (ICD-10 - M54.16) [facility] Other 01-19-2024 Evaluation note* Encounter Date Diagnosis Assessment Notes Treatment Notes Treatment Clinical Notes Aug, Lumbar radicular pain (ICD-10 - M54.16) [facility] Other 12-26-2023 Evaluation note* Encounter Date Diagnosis Assessment Notes Treatment Notes Treatment Clinical Notes Jul, Type 2 diabetes mellitus with hyperglycemia, without long-term current use of insulin (ICD-10 - E11.65) [facility] Other 12-26-2023 Evaluation note* Encounter Date Diagnosis [...] T3s after shoulder pain has improved post-operatively. [facility] Other 12-04-2023 Evaluation note* Encounter Date Diagnosis Assessment Notes Treatment Notes Treatment Clinical Notes Jul, Type 2 diabetes mellitus with hyperglycemia, without long-term current use of insulin (ICD-10 - E11.65) [facility] Other 12-01-2023 Evaluation note* Encounter Date Diagnosis Assessment Notes Treatment Notes Treatment Clinical Notes Jul, Type 2 diabetes mellitus with hyperglycemia, without long-term current use of insulin (ICD-10 - E11.65) [facility] Other 11-30-2023 Evaluation note* Encounter Date Diagnosis Assessment Notes Treatment Notes Treatment Clinical Notes Jun, Labral tear of shoulder, right, subsequent encounter (ICD-10 - S43.431D) [facility] Other 11-14-2023 Evaluation note* Encounter Date Diagnosis [...] pain (ICD-10 - R07.9) r/o cardiac cause [facility] Other 11-07-2023 Evaluation note* Encounter Date Diagnosis [...] to decrease dose and possibly discontinue medication. [facility] Other 11-02-2023 Evaluation note* Encounter Date Diagnosis Assessment Notes Treatment Notes Treatment Clinical Notes Jun, Acute pain of right shoulder (ICD-10 - M25.511) [facility] Other 10-30-2023 Evaluation note* Encounter Date Diagnosis Assessment Notes Treatment Notes Treatment Clinical Notes May, Acute pain of right shoulder (ICD-10 - M25.511) [facility] Other 10-23-2023 Evaluation note* Encounter Date Diagnosis Assessment Notes Treatment Notes Treatment Clinical Notes May, Acute pain of right shoulder (ICD-10 - M25.511) [facility] Other 10-16-2023 Evaluation note* Encounter Date Diagnosis Assessment Notes Treatment Notes Treatment Clinical Notes May, Acute pain of right shoulder (ICD-10 - M25.511) [employer] Other 10-10-2023 Evaluation note* Encounter Date Diagnosis Assessment Notes Treatment Notes Treatment Clinical Notes May, Acute pain of right shoulder (ICD-10 - M25.511) MRI and surgery planning pending. Pt understands this is a controlled substance and to call in 1 week w update on treatment plan. May, Bronchitis (ICD-10 - J40) Finish antibiotic, rest, hydrate Steroids for wheezing. [employer] Other 10-04-2023 Evaluation note* Encounter Date Diagnosis Assessment Notes Treatment Notes Treatment Clinical Notes May, Acute pain of right shoulder (ICD-10 - M25.511) Reviewed OARRS and discussed short term plan of increase in pain medication. He is due for a refill of the T3s presently. Stop them, replace w norco. Pt understands weekly prescription and will need to d/c after anticipated surgery. [employer] Other 09-12-2023 Evaluation note* Encounter Date Diagnosis [...] office and the ER visit on 04/26 [employer] Other 07-05-2023 Evaluation note* Encounter Date Diagnosis [...] and will need less prn pain med. [employer] Other 06-01-2023 Evaluation note* Encounter Date Diagnosis [...] left shoulder (ICD-10 - M25.512) as above. [employer] Other 04-17-2023 Evaluation note* Encounter Date Diagnosis Assessment Notes Treatment Notes Treatment Clinical Notes Nov, Bronchitis (ICD-10 - J40) [employer] Other 04-11-2023 Evaluation note* Encounter Date Diagnosis Assessment Notes Treatment Notes Treatment Clinical Notes Nov, Disc degeneration, lumbar (ICD-10 - M51.36) Nov, Lumbar radicular pain (ICD-10 - M54.16) [employer] Other 04-07-2023 Evaluation note* Encounter Date Diagnosis [...] quit smoking. Pt verbalizes understanding and agreement. [employer] Other 02-15-2023 Evaluation note* Encounter Date Diagnosis Assessment Notes Treatment Notes Treatment Clinical Notes Sep, Lumbar radicular pain (ICD-10 - M54.16) [employer] Other 01-17-2023 Evaluation note* Encounter Date Diagnosis [...] is outlined on the test result page. [employer] Other 10-20-2022 NoteIndication: Calculus in kidney. Comparison: [...] Electronically authenticated by: JOHN PINTO Date: 2022-06-07 20:07[facility]06-21-2022 Evaluation note* Encounter Date Diagnosis Assessment [...] of repair, infection and wound healing delays. [employer] Other 04-26-2022 NotePROCEDURE: XR SHOULDER LT 2V or > COMPARISON: None. HISTORY: Pain of left shoulder joint FINDINGS: BONES:No acute fracture or dislocation. 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 No visible soft tissue swelling. EFFUSION:None visible. OTHER: Negative. IMPRESSION: Mild osteoarthritis Electronically authenticated by: BARBIE MEMBRENO Date: 2021-12-12 [facility] Encounter Date Diagnosis Assessment Notes [...] pain of left shoulder (ICD-10 - M25.512) [facility] Other 10-08-2021 Evaluation note* Encounter Date Diagnosis [...] as needed for cough. Advised patient that [place] contains antihistamine and cough suppressant and to be cautious using other OTC cold medications. Patient to follow up with PCP if symptoms do not improve. Immediate eval if SOB, difficulty breathing, chest pain, dizziness, or other concerning symptoms. Patient verbalizes understanding and is agreeable to treatment plan [facility] Other Evaluation + Plan note No data available for this section [facility] Other Evaluation note* Diagnosis Onset Date Resolution Status Arthralgia acute Lumbar pain acute Type II diabetes mellitus ac [facility] Work Phone: Evaluation note* Diagnosis Onset Date Resolution Status Arthralgia acute Lumbar pain acute Type II diabetes mellitus ac [place] Bilateral hip pain acute [facility] Work Phone: History general Narrative - Reported* Type Description Date Medical History Asthma Medical History skin cancer-lip Surgical History Left lung biopsy 1977 Surgical History L4 and L5 disc fusion 1984 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 Other Hospital Discharge instructions No data available for this section [facility] No data available for [...] pain (R10.13) Referral Organization [facility] omar Referring Provider First Name Hannah Referring Provider Last Name Sona Referring Provider Specialty [facility] [employer] Referred Organization [facility] Referred Provider Sai Martinez Referred Address ,[place], [place],[address] Referred Provider Specialty Surgery Referral Priority Routine General Notes Es Camilo 11:38:02 AM >received today, attachments made, notes locked, referral faxed Reason 01/28/23 Access Or tho - B shoulder pain L>R - hopes for injections. Diagnosis 1 Pain in right should er (M25.511) Referral Organization [facility] omar Referring Provider First Name Hannah Referring Provider Last Name Sona Referring Provider Specialty [facility] [employer] Referred Organization [facility] Referred Provider Barbie Tapia Referred Address ,[place], [place],[address] Referred Provider Specialty Orthopaedic Surgery Referral Priority [...] in right should er (M25.511) Referral Organization [facility] Referring Provider First Name Hannah Referring Provider Last Name Sona Referring Provider Specialty [facility]ine Referred Organization [facility] Referred Provider Barbie Tapia Referred Address ,[place], [place],[address] Referred Provider Specialty Orthopaedic Surgery Referral Priority [...] AUTHOR 02/10/2022 [facility] DATE CREATED AUTHOR AUTHOR'S ORGANIZ ATION 12/04/2022 [facility] DATE CREATED AUTHOR AUTHOR'S ORGANIZ ATION 06/01/2023 [facility] DATE CREATED AUTHOR AUTHOR'S ORGANIZ ATION 10/07/2023 [facility] DATE CREATED AUTHOR AUTHOR'S ORGANIZ ATION 02/09/2024 [facility] Patient Care team informatio n (unrecognized [...] December 17, 2023 End: December 17, 2023 [employer] Relationship Specialty Start Date End Date Hannah Magallanes MD [address] [place] [address] PCP - General Family Medicine 01/23/23 Team [...] BE BASED ON THE PRIMARY CLINICAL RECORDS. [facility] [employer] [facility] provides no warranty or guarantee of the accuracy or completeness of information in this document.
[2024-02-24 20:05] VITALS: BP 164/100; PULSE 72; TEMP 36.9; O2SAT 96; BMI 31.4
== END 2024-02-24 21:12 | disposition left against medical advice (07) ==
LOC: ER 20:01
PROVIDERS: Emergency Provider Internal Medicine; PCP Family Medicine
DX: Z53.21 Procedure and treatment not carried out due to patient leaving prior to being seen by health care provider (principal)

== ENCOUNTER 2024-02-26 09:03 | Outpatient (OUT) | payer MEDICARE, MEDICAID, SELFPAY ==
--- NOTE | 2024-02-26 09:29 | P.CN_ITS ---
Consult Note: HPI Data of Consult Patient: known to practice within the last 3 years Consult date: 12/26/23 Requesting Physician: Janneth Villalta NP Primary Care Provider: Hannah Gallo MD Consult Narrative Reason for consult: f/u Narrative: Nicholas Ziegler a pleasant 63 year old male with an extensive history of chronic low back pain post lumbar surgery in 1984, left l4 hemilaminectomy according to MRI. Patient also has a significant history of bilateral hip and groin pain. Patient rating low back and bilateral hip pain 5/10 sharp ache, increasing to 10/10 with twisting pushing pulling standing too long transitioning walking activity stairs, pain improved slightly when lying in recliner. Patient has failed to benefit from tylenol, allergy to NSAIDs, failed oxycodone- acetaminophen 5-325mgs, hydrocodone-acetaminophen 10mgs, tylenol #3 1-2 tabs TID, gabapentin unknown dosage. . Patient has failed to benefit from PT and HEP greater than 6 weeks, increases his pain. Previously a patient at [facility] receiving epidurals q2 months for 7 years per patient, last MAGAN 07/11 with benefit. Most recently underwent bilateral L4-5 L5-S1 facet medial branch block with significant functional improvement and pain relief immediately following and hours after. Pt reports left jaw pain and swollen glands in neck since injection, pt went to the ER but left due to a wait time of 2+ hours. denies SOB, nausea, headaches, fevers, chills, chest pain, indigestion. Is arranging for f/u appointment with PCP. cc:: CC: Janneth Villalta NP Review of Systems ROS Status of ROS 10 or more systems reviewed and unremark able except as noted in history and below Musculoskeletal Reports: back pain PFSH PFS Medical History (Updated 02/13/24 @ 08:04 by Janneth Villalta NP) Tobacco user ?Z72.0 - Tobacco use (ICD-10) Type 2 diabetes mellitus with hyperglycemia ?E11.65 - Type 2 diabetes mellitus with hyperglycemia (ICD-10) Acute exacerbation of chronic obstructive pulmonary disease (COPD) ?J44.1 - Chronic obstructive pulmonary disease with (acute) exacerbation (ICD-10) Lumbar degenerative disc disease ?M51.36 - Other intervertebral disc degeneration, lumbar region (ICD-10) Influenza ?J11.1 - Influenza due to unidentified influenza virus with other respiratory manifestations (ICD-10) Acute bronchospasm ?J98.01 - Acute bronchospasm (ICD-10) Postoperative pain, acute, shoulder ?G89.18 - Other acute postprocedural pain (ICD-10) ?M25.519 - Pain in unspecified shoulder (ICD-10) Fever ?R50.9 - Fever, unspecified (ICD-10) Acute pain of right shoulder ?M25.511 - Pain in right shoulder (ICD-10) Rotator cuff arthropathy of right shoulder ?M12.811 - Other specific arthropathies, not elsewhere classified, right shoulder (ICD-10) Diabetes ?E11.9 - Type 2 diabetes mellitus without complications (ICD-10) COPD (chronic obstructive pulmonary disease) ?J44.9 - Chronic obstructive pulmonary disease, unspecified (ICD-10) Surgical History S/P right rotator cuff repair ?Z98.890 - Other specified postprocedural states (ICD-10) Social History Within the past year, how often did you have a drink containing alcohol: never Score interpretation: A score less than 4 is consistent with normal alcohol consumption. 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 Little interest or pleasure in doing things: not at all Feeling down, depressed, or hopeless: not at all Feel stressed/tense/nervous/anxious/difficulty sleeping: not at all Do you think of yourself as: straight/heterosexual Gender Identity: male Meds Home Medications and Allergies Home Medications ?Medication ?Instructions ?Recorded ?Confirmed ?Type glipizide 5 mg-metformin 500 mg 1 tab PO DAILY 08/23/23 02/24/24 History tablet lancets (Accu-Chek Fastclix Lancet 09/08/23 09/08/23 History Drum) acetaminophen 300 mg-codeine 30 mg 2 tab PO TID PRN pain #180 tabs 01/02/24 02/24/24 Rx tablet naloxone 4 mg/actuation nasal 4 mg intranasal Q3M PRN opioid 01/02/24 02/24/24 Rx spray (Narcan) overdose #2 ea tizanidine 4 mg capsule 4 mg PO BID PRN muscle spasticity 02/24/24 02/24/24 History Allergies Allergy/AdvReac Type Severity Reaction Status Date / Time fentanyl Allergy Intermediate Hives Verified 02/24/24 08:43 ofloxacin Allergy Intermediate HIVES Verified 02/24/24 08:43 olodaterol Allergy Intermediate SHORTNESS Verified 02/24/24 08:43 [From Stiolto Respimat] OF BREATH tiotropium Allergy Intermediate SHORTNESS Verified 02/24/24 08:43 [From Stiolto Respimat] OF BREATH zafirlukast Allergy Intermediate Hives Verified 02/24/24 08:43 ibuprofen [From Motrin] AdvReac Mild Hives Verified 02/24/24 08:43 Exam Constitutional Documenting provider has reviewed patient's vital signs: yes Common normals: no apparent distress, oriented x3, healthy appearing, alert and well nourished General appearance: cooperative HENCT Common normals: normocephalic, hearing grossly normal bilaterally and moist oral mucous membranes Head and scalp: normocephalic Eye Common normals: PERRL Pupil: PERRL Neck & C-Spine Common normals: full ROM General: normal visual inspection Chest Common normals: inspection of chest normal Respiratory Common normals: normal respiratory effort, no retractions and no use of accessory muscles Back & Pelvis Lumbar spine/lower back: ROM limited, pain with ROM, lumbar spinal tenderness and straight leg raise negative bilaterally Sacroiliac joints: SI joint(s) abnormal Other: right positive hailee(patricks), gaenslens, thigh thrust, compression test sensation in bilateral LE intact, strength 5/5 improved from prior positive facet loading Extremity Common normals: normal to inspection and full ROM Right lower extremity: hip joint Left lower extremity: hip joint Other: significant increase in hip/groin pain with internal and external rotation of bilateral hips, right greater than left Neuro Common normals: oriented x3, CN's II-XII intact bilaterally, moves all extremities, no focal motor deficits, no sensory deficits noted and deep tendon reflexes 2+ bilaterally Sensorium/orientation: alert Gait (neuro): antalgic Motor exam: strength 5/5 throughout and no movement abnormalities noted Psych Common normals: mental status grossly normal, thought process normal, cooperative, affect normal, speech normal and activity/motor behavior normal Speech: normal speech Thought process: normal thought process Results Additional Findings Additional findings: If on a controlled substance or opioids, I have checked an OARRS report on this patient and there are no aberrancies noted in the prescribing history.??If on a controlled substance or opioid a drug screen was completed and reviewed within the last year, and if there has not been a drug screen completed we ordered one today to monitor higher risk, state monitored pain medication use. As part of providing excellent, safe, comprehensive care, the following was completed at our patient's visit: 1. A medication reconciliation and review to ensure accurate knowledge of current/active medications, including asking our patients to inform us about any adqn-wsp-xbiognu medications or herbal remedies/nutritional supple ments/alternative remedies. 2. A review to specifically ensure our patients have had annual screening for screening for depression, screening for tobacco use, and screening for unhealthy alcohol use. For concerning screenings had a discussion with the patient, provided patient education, and recommended follow-up with primary care provider when appropriate. If patient noted with a risk of falling, they received education on strength, gait, and balance training to prevent future risk of falling. Assessment and Plan Assessment and Plan (1) Lumbar spondylosis: (2) Lumbar stenosis with neurogenic claudication: (3) Sacroiliitis: (4) Bilateral primary osteoarthritis of hip: (5) Failed back syndrome: (6) Bilateral hip pain: (7) Chronic prescription opiate use: Assessment and Plan: functional goals: care for self, care for brother, complete housework and take care of the yard, improve pain I feel these medications are improving the patient's quality of life and allow them to tolerate activities of daily living as well as participate in recreational activity.? The patient does not report intolerable side effects. The patient is NOT opioid naive and non-pharmacologic and non-opioid treatment has failed to significantly relieve the patient's pain and improve functionality. The patient has a diagnosis that is related to a somatic or visceral pain etiology. ? ?? I reviewed with the patient the potential risks and side effects with the use of? opioid medications including but not limited to respiratory depression,? sedation, and even . I verified the patient has access to naloxone should? these effects occur. I advised the patient to avoid the use of any other? sedation substances including alcohol, THC, and benzodiazepines while? taking opioid medications due to the risk of compounding side effects and? detrimental outcomes. 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 drug screen, and opioid start talking forms. The patient was advised to let? their family know they had Naloxone in case they would need to administer? the medication.? ?? A drug screen was completed within the last year, and no aberrancies were noted regarding their use of controlled substances. The patient understands they are subject to the terms and conditions of the pain contract that they have signed. ? ?? I have checked an OARRS report on this patient today and there are no aberrancies noted in the prescribing history.? (8) Chronic pain syndrome: Plan bilateral L4-5 L5-S1 facet medial branch block x2 working towards thermal RFA, to be completed under fluoroscopy, risks vs benefits reviewed continue tylenol #3 1-2 tabs TID PRN 30 day supply, plan to wean after injection therapy narcan discussed and prescribed last visit encouraged to utilize tizanidine from PCP more often for myofascial pain f/u with PCP regarding jaw pain f/u after each injection
== END 2024-02-26 09:04 ==
LOC: PM 09:03
PROVIDERS: PCP Family Medicine; Visit Provider Nurse Practitioner
DX: M47.816 Spondylosis without myelopathy or radiculopathy, lumbar region (principal); M48.062 Spinal stenosis, lumbar region with neurogenic claudication; M46.1 Sacroiliitis, not elsewhere classified; M16.0 Bilateral primary osteoarthritis of hip; M96.1 Postlaminectomy syndrome, not elsewhere classified; M25.551 Pain in right hip; M25.552 Pain in left hip; Z79.891 Long term (current) use of opiate analgesic
CPT/HCPCS: G0463

== ENCOUNTER 2024-02-27 21:12 | Emergency (ER) | payer MEDICARE, MEDICAID, SELFPAY ==
[2024-02-27 21:18] VITALS: BP 178/96; PULSE 68; TEMP 37.2; O2SAT 97; BMI 31.4
--- NOTE | 2024-02-27 21:33 | PC.NURSE ---
PT STATES WEARS DENTURES AND HAS BEEN HAVING PAIN TO LEFT LOWER GUMS. PT STATES PAIN RADIATES DOWN LEFT SIDE OF NECK AND FEEL A SWOLLEN GLAND WITH PAIN INCREASING WITH SWALLOWING
--- NOTE | 2024-02-27 22:17 | CT_ITS ---
[address] [address] Patient Name: ERIC CRAIG MRN: [id number] date: 1960 Sex: M Assigned Patient Location: ER Current Patient Location: Accession/Order Number: [id number] Exam Date: 02/27/2024 23:30 Report Date: 02/28/2024 00:17 At the request of: UMAIR COOPER Procedure: CT soft tissue neck w con EXAMINATION: CT Soft Tissue Neck with IV Contrast TECHNIQUE: Axial CT imaging of the neck was performed following the intravenous injection of contrast material according to the standard protocol. Sagittal and coronal 2-D reformats were made from source images. CONTRAST: The amount and type of contrast are recorded int he medical record. QPP DOCUMENTATION: At least one of the following dose reduction techniques was utilized: Iterative reconstruction, and/or Automatic Exposure Control, and/or mA/kV adjustment based on body size. INDICATION: . left submandibular pain COMPARISON: None FINDINGS: Pharynx/Larynx: The nasopharynx, oropharynx, hypopharynx, and larynx are symmetric and without evidence of mass. The visualized trachea and visualized esophagus are unremarkable. No retropharyngeal fluid collections. Normal appearance of the epiglottis. Oral Cavity: The patient is edentulous. No tongue or floor the mouth lesions are identified. Lymph Nodes: No pathologically enlarged cervical lymph nodes. Vascular: The vascular structures of the neck are unremarkable. Thyroid: The thyroid gland is unremarkable. Parotid and Submandibular Glands: The submandibular glands are unremarkable. The left parotid gland is largely fatty replaced. Osseous Structures: Unremarkable. Orbits and Paranasal Sinuses: The visualized orbits and paranasal sinuses are unremarkable. Intracranial: The visualized intracranial structures are unremarkable. Lung Apices: The visualized lung apices are clear. CT/CT soft tissue neck w con IMPRESSION: 1. No suspicious masses, fluid collections, or adenopathy. 2. Fatty replacement of the left parotid gland. Electronically authenticated by: SLICK BROWN Date: 02/28/2024 00:17
--- NOTE | 2024-02-27 22:18 | ED_ITS ---
HPI - Dental/Oral General Chief complaint: Dental/Oral Stated complaint: JAW PAIN Time Seen by Provider: 02/27/24 21:22 Source: patient Mode of arrival: walk-in Limitations: no limitations History of Present Illness HPI Narrative: presents complaining of pain left angle of the mandible for about 5 days. States pain radiating into his ear and also down his neck. No sore throat or dental pain( he wears dentures). no facial swelling or fever. No problem swallowing Related Data Home Medications ?Medication ?Instructions ?Recorded ?Confirmed glipizide 5 mg-metformin 500 mg 1 tab PO DAILY 08/23/23 02/24/24 tablet lancets (Accu-Chek Fastclix Lancet 09/08/23 09/08/23 Drum) tizanidine 4 mg capsule 4 mg PO BID PRN muscle spasticity 02/24/24 02/24/24 Previous Rx's ?Medication ?Instructions ?Recorded acetaminophen 300 mg-codeine 30 mg 2 tab PO TID PRN pain #180 tabs 01/02/24 tablet naloxone 4 mg/actuation nasal 4 mg intranasal Q3M PRN opioid 01/02/24 spray (Narcan) overdose #2 ea Allergies Allergy/AdvReac Type Severity Reaction Status Date / Time fentanyl Allergy Intermediate Hives Verified 02/24/24 08:43 ofloxacin Allergy Intermediate HIVES Verified 02/24/24 08:43 olodaterol Allergy Intermediate SHORTNESS Verified 02/24/24 08:43 [From Stiolto Respimat] OF BREATH tiotropium Allergy Intermediate SHORTNESS Verified 02/24/24 08:43 [From Stiolto Respimat] OF BREATH zafirlukast Allergy Intermediate Hives Verified 02/24/24 08:43 ibuprofen [From Motrin] AdvReac Mild Hives Verified 02/24/24 08:43 Review of Systems ROS Status of ROS 10 or more systems reviewed and unremark able except as noted in history and below [facility] Medical History (Updated 02/28/24 @ 02:19 by Arnoldo Somers MD) Tobacco user ?Z72.0 - Tobacco use (ICD-10) Type 2 diabetes mellitus with hyperglycemia ?E11.65 - Type 2 diabetes mellitus with hyperglycemia (ICD-10) Acute exacerbation of chronic obstructive pulmonary disease (COPD) ?J44.1 - Chronic obstructive pulmonary disease with (acute) exacerbation (ICD-10) Lumbar degenerative disc disease ?M51.36 - Other intervertebral disc degeneration, lumbar region (ICD-10) Influenza ?J11.1 - Influenza due to unidentified influenza virus with other respiratory manifestations (ICD-10) Acute bronchospasm ?J98.01 - Acute bronchospasm (ICD-10) Postoperative pain, acute, shoulder ?G89.18 - Other acute postprocedural pain (ICD-10) ?M25.519 - Pain in unspecified shoulder (ICD-10) Fever ?R50.9 - Fever, unspecified (ICD-10) Acute pain of right shoulder ?M25.511 - Pain in right shoulder (ICD-10) Rotator cuff arthropathy of right shoulder ?M12.811 - Other specific arthropathies, not elsewhere classified, right shoulder (ICD-10) Diabetes ?E11.9 - Type 2 diabetes mellitus without complications (ICD-10) COPD (chronic obstructive pulmonary disease) ?J44.9 - Chronic obstructive pulmonary disease, unspecified (ICD-10) Surgical History S/P right rotator cuff repair ?Z98.890 - Other specified postprocedural states (ICD-10) Social History Within the past year, how often did you have a drink containing alcohol: never Score interpretation: A score less than 4 is consistent with normal alcohol consumption. 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 Little interest or pleasure in doing things: not at all Feeling down, depressed, or hopeless: not at all Feel stressed/tense/nervous/anxious/difficulty sleeping: not at all Do you think of yourself as: straight/heterosexual Gender Identity: male Exam Constitutional Vital Signs, click to edit/add: Last Vital Signs Temp 99.0 F 02/27/24 21:18 Pulse 68 02/27/24 21:18 Resp 16 02/27/24 21:18 BP 178/96 H 02/27/24 21:18 Pulse Ox 97 02/27/24 21:18 O2 Del Method Room Air 02/27/24 21:18 Common normals: no apparent distress, average body habitus, oriented x3, no limitations, healthy appearing, alert and well nourished HENMT Common normals: normocephalic and head/scalp atraumatic Other: left TM view partially obstructed by wax but limited view of TM appears normal oral pharynx normal. No obvious gingival swelling Eye Common normals: EOMs intact bilaterally and conjunctivae normal Neck & C-Spine Other: no definite enlarged nodes left anterior chain or posterior chain Respiratory Common normals: normal respiratory effort, no retractions, no use of accessory muscles and clear to auscultation bilaterally Cardio Common normals: regular rate, regular rhythm, S1 normal heart sound and S2 normal heart sound Extremity Common normals: normal to inspection and full ROM Neuro Common normals: oriented x3, CN's II-XII intact bilaterally, moves all extremities and no focal motor deficits Psych Appearance: grossly normal Course Vital Signs Vital signs: Vital Signs Temperature 99.0 F 02/27/24 21:18 Pulse Rate 68 02/27/24 21:18 Respiratory Rate 16 02/27/24 21:18 Blood Pressure 178/96 H 02/27/24 21:18 Pulse Oximetry 97 02/27/24 21:18 Oxygen Delivery Method Room Air 02/27/24 21:18 Temperature 99.0 F 02/27/24 21:18 Pulse Rate 68 02/27/24 21:18 Respiratory Rate 16 02/27/24 21:18 Blood Pressure 178/96 H 02/27/24 21:18 Pulse Oximetry 97 02/27/24 21:18 Oxygen Delivery Method Room Air 02/27/24 21:18 MDM - Dental/Oral MDM Narrative Medical decision making narrative: patient presents complaining of fullness sensation left neck and pain of his mandible that he felt was radiating into his ear and down his neck. oral cavity clear. CT soft tissue neck without any acute findings. Patient treated symptomatically with solumedrol and magnesium and is now feeling better. The fullness sensation has also decreased. Discharged to follow up with his doctor. Provided a prescription of prednisone and aug and advised to monitor his BS Lab Data Labs: Lab Results 02/27/24 Range/Units 22:30 WBC 9.3 (4.0-11.0) 10^3/uL RBC 5.32 (4.70-6.10) 10^6/uL Hgb 15.5 (14.0-18.0) g/dL Hct 47.1 (42.0-54.0) % MCV 88.5 (80.0-94.0) fL MCH 29.1 (25.9-34.0) pg MCHC 32.9 (29.9-35.2) g/dL RDW 13.5 (11.0-15.0) % Plt Count 288 (150-450) 10^3/uL MPV 8.8 L (9.5-13.5) fL Neut % (Auto) 59.2 (43.0-75.0) % Lymph % (Auto) 25.5 (20.5-60.0) % [place] % (Auto) 12.0 (1.7-12.0) % Eos % (Auto) 2.5 (0.9-7.0) % Baso % (Auto) 0.5 (0.2-2.0) % Neut # (Auto) 5.5 (1.4-6.5) 10^3/uL Lymph # (Auto) 2.4 (1.2-3.8) 10^3/uL [place] # (Auto) 1.1 H (0.3-0.8) 10^3/uL Eos # (Auto) 0.2 (0.0-0.7) 10^3/uL Baso # (Auto) 0.1 (0.0-0.1) 10^3/uL Abs Immat Gran (auto) 0.03 (0.00-0.03) 10^3/uL Imm/Tot Granulo (auto) 0.3 (0.0-0.5) % Sodium 130 L (136-145) mmol/L Potassium 4.4 (3.5-5.1) mmol/L Chloride 98 (98-107) mmol/L Carbon Dioxide 28.1 (21.0-32.0) mmol/L Anion Gap 8.3 BUN 21.0 H (7.0-18.0) mg/dL Creatinine 0.86 (0.70-1.30) mg/dL Est GFR ( Amer) >60 (>=60) Est GFR (Non-Af Amer) >60 (>=60) BUN/Creatinine Ratio 24.4 Glucose 237 H (74-106) mg/dL Lactate 1.3 (0.4-2.0) mmol/L Calcium 8.9 (8.5-10.1) mg/dL Imaging Data Chest x-ray: Radiologist's impression: ITS Impressions Soft Tissue Neck CT 02/27/24 22:17 IMPRESSION: 1. No suspicious masses, fluid collections, or adenopathy. 2. Fatty replacement of the left parotid gland. Electronically authenticated by: SLICK BROWN Date: 02/28/2024 00:17 Discharge Plan Discharge Stand Alone Forms: Portal Instructions Chief Complaint: Dental/Oral Clinical Impression: Jaw pain, non-TMJ Patient Disposition: Home, Self-Care Prescriptions / Home Meds: No Action (DME) lancets [Accu-Chek Fastclix Lancet Drum] Misc MISCELLANEOUS acetaminophen-codeine 300-30 mg tablet 2 tab PO TID PRN (Reason: pain) Qty: 180 0RF naloxone [Narcan] 4 mg/actuation spray,non-aerosol 4 mg intranasal Q3M PRN (Reason: opioid overdose) Qty: 2 0RF Rx Instructions: spray 1 dose into ONE nostril; alternate nostrils w each dose until help arrives glipizide-metformin 5-500 mg tablet 1 tab PO DAILY tizanidine 4 mg capsule 4 mg PO BID PRN (Reason: muscle spasticity) Print Language: Tongan Instructions: Atypical Facial Pain (ED) Additional Instructions: follow up with your doctor early next week Referrals: Hannah Gallo MD [Primary Care Provider] - 1 week
[2024-02-27 22:54] LABS: Basophils Absolute Auto 0.1 10^3/uL (0.0-0.1); Basophils Percent Auto 0.5 % (0.2-2.0); Eosinophils Absolute Auto 0.2 10^3/uL (0.0-0.7); Eosinophils Percent Auto 2.5 % (0.9-7.0); Hematocrit 47.1 % (42.0-54.0); Hemoglobin 15.5 g/dL (14.0-18.0); Immature Granulocytes Abs Auto 0.03 10^3/uL (0.00-0.03); Immature Granulocytes Pct Auto 0.3 % (0.0-0.5); Lymphocytes Absolute Auto 2.4 10^3/uL (1.2-3.8); Lymphocytes Percent Auto 25.5 % (20.5-60.0); Mean Corpuscular HGB Conc 32.9 g/dL (29.9-35.2); Mean Corpuscular Hemoglobin 29.1 pg (25.9-34.0); Mean Corpuscular Volume 88.5 fL (80.0-94.0); Mean Platelet Volume 8.8 fL (9.5-13.5); Monocytes Absolute Auto 1.1 10^3/uL (0.3-0.8); Neutrophils Absolute Auto 5.5 10^3/uL (1.4-6.5); Neutrophils Percent Auto 59.2 % (43.0-75.0); Platelet Count 288 10^3/uL (150-450); Red Blood Count 5.32 10^6/uL (4.70-6.10); Red Cell Distribution Width 13.5 % (11.0-15.0); White Blood Count 9.3 10^3/uL (4.0-11.0)
[2024-02-27 23:06] LABS: Anion Gap 8.3; BUN Creatinine Ratio 24.4; Calcium 8.9 mg/dL (8.5-10.1); Carbon Dioxide 28.1 mmol/L (21.0-32.0); Chloride 98 mmol/L (98-107); Estimated GFR (African America >60 (>=60); Estimated GFR (Non-African Ame >60 (>=60); Glucose 237 mg/dL (74-106); Potassium 4.4 mmol/L (3.5-5.1); Sodium 130 mmol/L (136-145)
[2024-02-27 23:15] LABS: Lactate/Lactic Acid 1.3 mmol/L (0.4-2.0)
[2024-02-27] MEDS: DIAZEPAM 10 MG/2 ML SYRINGE 5 MG IV (23:23)
[2024-02-28] MEDS: METHYLPREDNISOLONE SOD SUCC PF 125 MG/2 ML VIAL IVP (00:59)
[2024-02-28] MEDS: MAGNESIUM SULFATE IN WATER 2 GM/50 ML PREMIX IV (00:59)
[2024-02-28] MEDS: AMOXICILLIN/POTASSIUM CLAV 1 TAB TABLET PO (02:24)
== END 2024-02-28 02:30 | disposition home or self-care (01) ==
PROVIDERS: Emergency Provider Internal Medicine; PCP Family Medicine
DX: R68.84 Jaw pain (principal); F17.200 Nicotine dependence, unspecified, uncomplicated
CPT/HCPCS: 36415; 70491; 80048; 83605; 85025; 96365; 96375; 99284; J2919; J3360; J3475; Q9967

== ENCOUNTER 2024-03-16 08:50 | Day surgery (SDC) | payer MEDICARE, MEDICAID, SELFPAY ==
--- OUTSIDE RECORDS SUMMARY | 2024-03-16 08:54 | XMS_ITS | CCD ---
Author Organization [facility] Care Team Providers Care Jewel Waxer Name Role Phone Ronnie Kesha Unavailable Chepe Harriet Unavailable Hannah Magallanes Unavailable SONA, DR HANNAH Jovel Admitting Unavailable MAGALLANES, DR HANNAH Jovel Attending Unavailable MAGALLANES, DR HANNAH Jovel Primary Care Unavailable MAGALLANES, DR HANNAH Jovel Consulting Unavailable TAVERASRUBI Consulting Unavailable OLEXA, KESHA Admitting Unavailable OLEXA, KESHA Attending Unavailable MAGALLANES, DR HANNAH Jovel Primary Care Unavailable WEST, DR BARBIE Goldberg Consulting Unavailable OLEXA, KESHA [...] Care Physician Edin, Barbie Tellez Referring Unavailable Pocsophia, Barbie Tellez Attending Unavailable Pocsophia, Barbie Tellez Admitting Unavailable Hannah Magallanes MD Primary Care Provider POCOS, BARBIE Tellez Attending Unavailable POCOS, BARBIE Tellez Referring Unavailable POCOS, JIN Attending Unavailable BARBIE TAPIA Attending Unavailable Gieshaitis , Zacarias Miranda Attending Unavailable Gieshaitis , Zacarias Miranda Attending Unavailable Gifrantz JACOB, Zacarias Miranda Attending Unavailable Allergies Allergy Classification Reported Allergen(s) Allergy Type Date of Onset Reaction(s) Facility (20 sources) Ibuprofen Drug Allergy [facility] Other (20 sources) olodaterol / tiotropium Drug Allergy shortness of breath [place] [facility] Other (20 sources) CT Scan dye Propensity to adverse reactions [facility] Other (5 sources) Ibuprofen Drug Allergy 08-19-18 80 [facility] Repository (2 sources) Iodine (And Iodine Containting Drugs) Drug allergy (disorder) 09-07-19 16 [facility] Repository (1 source) NSAIDs Drug allergy (disorder) [facility] Repository (20 sources) fentaNYL Drug Allergy 12-05-19 24 Unknown, [facility] (4 sources) Ibuprofen Drug Allergy 01-15-20 15 [facility] (20 sources) Ofloxacin Drug Allergy 12-05-19 24 Unknown, [facility] (3 sources) zafirlukast Drug Allergy 01-15-20 15 Unknown [facility] [employer] Other (20 sources) Zafirlukast *ANTIASTHMATIC AND BRONCHODILATOR AGEN Propensity to adverse reactions Unknown [facility] Other (20 sources) Ibuprofen & Diet Manage Prod *ANALGESICS - ANTI-IN Propensity to adverse reactions Unknown [facility] Other (3 sources) Allergies Reconciled Propensity to adverse reactions Unknown [facility] Other (20 sources) Iodinated contrast media (substance) Drug allergy 06-03-20 19 Rash [facility] Other (3 sources) patient allergy list reviewed by nurse or physicia Propensity to adverse reactions 10-05-19 16 Comment:Done [facility] Other (3 sources) olodaterol Drug Allergy 12-05-19 shortness of breath [facility] (3 sources) tiotropium Drug Allergy 12-05-19 shortness of breath [facility] (3 sources) Iodinated Contrast Media Allergy to substance 12-05-19 [facility] (3 sources) Ibuprofen & Diet Manage Prod * Allergy to substance 12-04-19 [facility] (3 sources) Zafirlukast *ANTIASTHMATIC AND Allergy to substance 12-04-19 [facility] Medications Current Medications Medication Drug Class(es) Dates [...] as needed Orally every 6 hrs Active [id number] 200 actuat albuterol 0.09 mg/actuat metered dose [...] 12 hrs for 10 day(s) Oct, Active DULoxetine 60 mg delayed release oral capsule (10 sources) Serotonin and Norepinephrine Reuptake Inhibitor Start: 02-19-2024 take 1 capsule by mouth once daily Duloxetine Active 0 .ROUTE .COMPLEX 90 February 19, 2024 8:39am TAKE 1 CAPSULE BY MOUTH EVERY DAY FOR 90 DAYS Start: 02-19-2024 End: 02-19-2024 take 60 mg by mouth once daily Duloxetine Discontinued 60 MG PO Daily February 19, 2024 12:00am February 19, 2024 8:39am Start: 02-20-2023 take 1 capsule by mo ut every twenty-four hours Cymbalta 60 MG 1 capsule Orally Once a day for 30 days Feb, Active gabapentin 800 mg oral tablet (1 source) Anti-epileptic Agent Start: 08-31-2023 gabapentin (Neurontin) 800 MG tablet glipiZIDE 5 mg / metFORMIN hydrochloride 500 mg oral tablet (17 sources) Biguanide, Sulfonylurea Start: 12-04-2023 take 2 tablets by mouth twice daily Glipizide-Metform in Active TAB PO December 04, 2023 12:00am [employer] tab Orally bid; Note: Source Status: Start; Refills: 1; Qty: 360 Tablet; Provider: Sona Young ( ) Start: 07-19-2023 take 2 tablets by mo uth in the morning glipiZIDE-metFORMIN (Metaglip) 5-500 MG [...] meal Orally bid for 30 days Active Nicotine (Nicoderm Cq) 14 mg/24 hr patch 24 hour (1 source) Start: 03-03-2024 apply 1 dose transdermal route once daily, then apply 1 dose transdermal route every twenty-four hours Nicotine (Nicoderm Cq) 14 mg/24 hr patch 24 hour Active 1 PATCH TRANSDERML Daily March 03, 2024 12:00am predniSONE 10 mg oral tablet (14 sources) Start: 04-30-2023 predniSONE 10 MG 4 tabs po daily x 2 days, 3 tabs daily x 2 days, 2 tabs daily x 2 days, 1 tab daily x 2 days Orally Once a day for 8 Apr, Active Start: 11-23-2022 take 2 tablets by mo [facility] every twenty-four hours predniSONE [...] days May, Active Start: 2023 HYDROcodone-ac etaminophen ([place]) 10-325 MG tablet Start: 2023 take 1 tablet by desirae th every six hours HYDROcodone-Acetaminophen 10-325 MG 1 tablet as needed Orally every 6 hrs for 7 days May, Active atorvastatin 20 mg oral tablet (20 sources) HMG-CoA Reductase Inhibitor Start: 10-23-2023 End: [...] 07-26-2023 atorvastatin ( Lipitor) 20 MG tablet Azithromycin (20 sources) Macrolide Antimicrobial Start: 12-20-2023 End: 03-03-2024 Azithromycin Discontinued 0 PO .COMPLEX December 20, 2023 12:00am March 03, 2024 12:09pm For 250 mg dose pack: take 500 mg today (day 1), then 250 mg for 4 days (days 2-5) PO Start: 09-19-2023 Azithromycin 2 50 MG as directed Orally [...] 4 more days for 5 Nov, Active dextromethorphan hydrobromide 30 mg / pyrilamine maleate 30 mg oral tablet (5 sources) Uncompetitive C-hgskfx-L-aspartate Receptor Antagonist, Sigma-1 Agonist Start: 05-26-2021 take 1 tablet by mouth every eight hours [place] DMT 30-30 MG 1 tablet Orally every 8 hours for 7 days May, Not-Taking Methylprednisolone (15 sources) Corticosteroid Start: 12-06-2023 End: 12-17-2023 Methylprednisolone [...] Onset: 9 Chronic Diabetes mellitus without complication (10 sources) Type 2 diabetes mellitus without complications; [...] right shoulder Episodic Other non-traumatic joint disorders (3 sources) Joint pain; Translations: [Pain in unspecified joint] 12-05-2023 Episodic Other non-traumatic joint disorders (3 sources) Pain in unspecified joint; Translations: [Pain in joint, site unspecified] 12-05-2023 Episodic Other non-traumatic joint disorders (2 sources) Hip pain; Translations: [Pain in right hip] 12-17-2023 Episodic Other non-traumatic joint disorders (2 sources) Pain in right hip; Translations: [Pain in [...] Spondylosis; intervertebral disc disorders; other back problems (13 sources) Radiculopathy, lumbar region; Translations: [Dorsalgia, unspecified] [...] Other [facility] (current) drug therapy; Translations: [OTH WARP BLEACHING VAT TENDER CURRENT DRUG THERAPY] Onset: 12-29-2021 Episodic Other [...] Range Facility Basophils Auto (Bld) [#/Vol] on 02-27-2024 Basophils (Bld) [#/Vol] 0.1 10 3/uL 0.0-0.1 [facility] Basophils/100 WBC Auto (Bld) on 02-27-2024 Basophils/100 WBC (Bld) 0.5 % 0.2-2.0 [facility] Eosinophils/100 WBC Auto (Bl d)on 02-27-2024 Eosinophils/100 WBC (Bld) 2.5 % 0.9-7.0 [facility] Erythrocyte distribution wid th Auto (RBC) [Ratio]on 02-27-2024 Erythrocyte distribution width (RBC) [Ratio] 13.5 % 11.0-15.0 [facility] Estimated glomerular filtrat ion rate (GFR) non- Americanon 02-27-2024 GFR/1.73 sq M.predicted among non-blacks MDRD (S/P/Bld) [Vol rate/Area] mL/min/{1.73_m2} >=60 [facility] Hematocrit Auto (Bld) [Volum e fraction]on 02-27-2024 Hematocrit (Bld) [Volume fraction] 47.1 % 42.0-54.0 [facility] Hemoglobin [Mass/volume] in Bloodon 02-27-2024 Hemoglobin (Bld) [Mass/Vol] 15.5 g/dL 14.0-18.0 [facility] Laboratory - Chemistry and C hemistry - challengeon 02-27-2024 Calcium [Mass/Vol] 8.9 mg/dL 8.5-10.1 [facility] Chloride [Moles/Vol] 98 mmol/L 98-107 [facility] CO2 [Moles/Vol] 28.1 mmol/L 21.0-32.0 [facility] Creatinine [Mass/Vol] 0.86 mg/dL 0.70-1.30 [facility] GFR/1.73 sq M.predicted MDRD (S/P/Bld) [Vol rate/Area] mL/min/{1.73_m2} >=60 [facility] Glucose [Mass/Vol] 237 mg/dL High 74-106 [facility] Lactate [Moles/Vol] 1.3 mmol/L 0.4-2.0 [facility] Potassium [Moles/Vol] 4.4 mmol/L 3.5-5.1 [facility] Sodium [Moles/Vol] 130 mmol/L Low 136-145 [facility] Urea nitrogen [Mass/Vol] 21.0 mg/dL High 7.0-18.0 [facility] Urea nitrogen/Creatinine [Mass ratio] 24.4 mg/mg [facility] Laboratory - Hematology and Cell countson 02-27-2024 Immature granulocytes/100 WBC (Bld) 0.3 % 0.0-0.5 [facility] Leukocytes [#/volume] correc jean claude for nucleated erythrocytes in Blood by Automated counon 02-27-2024 WBC corrected for nucl RBC Auto (Bld) [#/Vol] 9.3 10 3/uL 4.0-11.0 [facility] Lymphocytes Auto (Bld) [#/Vo l]on 02-27-2024 Lymphocytes (Bld) [#/Vol] 2.4 10 3/uL 1.2-3.8 [facility] Lymphocytes/100 WBC Auto (Bl d)on 02-27-2024 Lymphocytes/100 WBC (Bld) 25.5 % 20.5-60.0 [facility] MCH Auto (RBC) [Entitic mass ]on 02-27-2024 MCH (RBC) [Entitic mass] 29.1 pg 25.9-34.0 [facility] MCHC Auto (RBC) [Mass/Vol]on 02-27-2024 MCHC (RBC) [Mass/Vol] 32.9 g/dL 29.9-35.2 [facility] MCV Auto (RBC) [Entitic vol] on 02-27-2024 MCV (RBC) [Entitic vol] 88.5 fL 80.0-94.0 [facility] Monocytes Auto (Bld) [#/Vol] on 02-27-2024 Monocytes (Bld) [#/Vol] 1.1 10 3/uL High 0.3-0.8 [facility] Monocytes/100 WBC Auto (Bld) on 02-27-2024 Monocytes/100 WBC (Bld) 12.0 % 1.7-12.0 [facility] Neutrophils Auto (Bld) [#/Vo l]on 02-27-2024 Neutrophils (Bld) [#/Vol] 5.5 10 3/uL 1.4-6.5 [facility] Neutrophils/100 WBC Auto (Bl d)on 02-27-2024 Neutrophils/100 WBC (Bld) 59.2 % 43.0-75.0 [facility] No Panel Informationon 02-26 Eosinophils # (Auto) 0.2 10 3/uL 0.0-0.7 [facility] Immature Granulocyte # (Auto) 0.03 10 3/uL 0.00-0.03 [facility] Platelet mean volume Auto (B ld) [Entitic vol]on 02-27-2024 Platelet mean volume (Bld) [Entitic vol] 8.8 fL Low 9.5-13.5 [facility] Platelets Auto (Bld) [#/Vol] on 02-27-2024 Platelets (Bld) [#/Vol] 288 10 3/uL 150-450 [facility] RBC Auto (Bld) [#/Vol]on RBC (Bld) [#/Vol] 5.32 10 6/uL 4.70-6.10 [facility] Serum or plasma anion gap de terminationon 02-27-2024 Anion gap [Moles/Vol] 8.3 mmol/L [facility] Basophils Auto (Bld) [#/Vol] on 12-05-2023 Basophils (Bld) [#/Vol] 0.1 10 3/uL 0.0-0.1 [facility] Basophils/100 WBC Auto (Bld) on 12-05-2023 Basophils/100 WBC (Bld) 0.9 % 0.2-2.0 [facility] Eosinophils/100 WBC Auto (Bl d)on 12-05-2023 Eosinophils/100 WBC (Bld) 2.7 % 0.9-7.0 [facility] Erythrocyte distribution wid th Auto (RBC) [Ratio]on 12-05-2023 Erythrocyte distribution width (RBC) [Ratio] 13.1 % 11.0-15.0 [facility] Estimated glomerular filtrat ion rate (GFR) non- Americanon 12-05-2023 GFR/1.73 sq M.predicted among non-blacks MDRD (S/P/Bld) [Vol rate/Area] mL/min/{1.73_m2} >=60 [facility] Glucose mean value [Mass/vol ume] in Blood Estimated from glycated hemoglobinon 12-05-2023 Average glucose Estimated from glycated hemoglobin (Bld) [Mass/Vol] 171 mg/dL [facility] Hematocrit Auto (Bld) [Volum e fraction]on 12-05-2023 Hematocrit (Bld) [Volume fraction] 48.9 % 42.0-54.0 [facility] Hemoglobin [Mass/volume] in Bloodon 12-05-2023 Hemoglobin (Bld) [Mass/Vol] 16.0 g/dL 14.0-18.0 [facility] Laboratory - Chemistry and C hemistry - challengeon 12-05-2023 Calcium [Mass/Vol] 9.7 mg/dL 8.5-10.1 [facility] Chloride [Moles/Vol] 102 mmol/L 98-107 [facility] CO2 [Moles/Vol] 27.6 mmol/L 21.0-32.0 [facility] Creatinine [Mass/Vol] 1.01 mg/dL 0.70-1.30 [facility] GFR/1.73 sq M.predicted MDRD (S/P/Bld) [Vol rate/Area] mL/min/{1.73_m2} >=60 [facility] Glucose [Mass/Vol] 156 mg/dL High 74-106 [facility] Potassium [Moles/Vol] 4.4 mmol/L 3.5-5.1 [facility] Sodium [Moles/Vol] 139 mmol/L 136-145 [facility] Urea nitrogen [Mass/Vol] 13.0 mg/dL 7.0-18.0 [facility] Urea nitrogen/Creatinine [Mass ratio] 12.9 mg/mg [facility] Laboratory - Hematology and Cell countson 12-05-2023 ESR (Bld) [Velocity] 17 mm/h <=20 [facility] HbA1c (Bld) [Mass fraction] 7.6 % High 4.5-6.2 [facility] Comment on above: ADA RECOMMENDED LIMI T 4.0 - 6.0ADA THERAPEUTIC TARGET < 7.0ACTION SUGGESTED> 7.0 Immature granulocytes/100 WBC (Bld) 0.4 % 0.0-0.5 [facility] Leukocytes [#/volume] correc jean claude for nucleated erythrocytes in Blood by Automated counon 12-05-2023 WBC corrected for nucl RBC Auto (Bld) [#/Vol] 7.7 10 3/uL 4.0-11.0 [facility] Lymphocytes Auto (Bld) [#/Vo l]on 12-05-2023 Lymphocytes (Bld) [#/Vol] 2.4 10 3/uL 1.2-3.8 [facility] Lymphocytes/100 WBC Auto (Bl d)on 12-05-2023 Lymphocytes/100 WBC (Bld) 31.2 % 20.5-60.0 [facility] MCH Auto (RBC) [Entitic mass ]on 12-05-2023 MCH (RBC) [Entitic mass] 28.5 pg 25.9-34.0 [facility] MCHC Auto (RBC) [Mass/Vol]on 12-05-2023 MCHC (RBC) [Mass/Vol] 32.7 g/dL 29.9-35.2 [facility] MCV Auto (RBC) [Entitic vol] on 12-05-2023 MCV (RBC) [Entitic vol] 87.0 fL 80.0-94.0 [facility] Monocytes Auto (Bld) [#/Vol] on 12-05-2023 Monocytes (Bld) [#/Vol] 0.7 10 3/uL 0.3-0.8 [facility] Monocytes/100 WBC Auto (Bld) on 12-05-2023 Monocytes/100 WBC (Bld) 9.5 % 1.7-12.0 [facility] Neutrophils Auto (Bld) [#/Vo l]on 12-05-2023 Neutrophils (Bld) [#/Vol] 4.2 10 3/uL 1.4-6.5 [facility] Neutrophils/100 WBC Auto (Bl d)on 12-05-2023 Neutrophils/100 WBC (Bld) 55.3 % 43.0-75.0 [facility] No Panel Informationon 12-04 Eosinophils # (Auto) 0.2 10 3/uL 0.0-0.7 [facility] Immature Granulocyte # (Auto) 0.03 10 3/uL 0.00-0.03 [facility] Platelet mean volume Auto (B ld) [Entitic vol]on 12-05-2023 Platelet mean volume (Bld) [Entitic vol] 8.6 fL Low 9.5-13.5 [facility] Platelets Auto (Bld) [#/Vol] on 12-05-2023 Platelets (Bld) [#/Vol] 330 10 3/uL 150-450 [facility] RBC Auto (Bld) [#/Vol]on RBC (Bld) [#/Vol] 5.62 10 6/uL 4.70-6.10 [facility] Serum or plasma anion gap de terminationon 12-05-2023 Anion gap [Moles/Vol] 13.8 mmol/L [facility] Magnesiumon 07-02-2023 Magnesium [Mass/Vol] 2.0300697 mg/dL Normal 1.8-2.4 mg/dL [facility] Other Magnesium see note [facility] Other MRI Shoulder w/o Contrast Ri jonathon 05-31-2023 MRI Shoulder w/o Contrast Right Exam Date/Time: 05/30/2023 14:25 EDT Reason for Exam: [id number] Report IMPRESSION: Full-thickness rotator cuff tearing involving [...] TAMARA Technologist: STELLA Technical Comments None Normal [facility] Consent for Treatmenton 05-19 Consent for Treatment [id number] .[id number] Normal [facility] RAD - MRI Screening Formon 1 RAD - MRI Screening Form [id number]. 00TIFF Normal [facility] Physician Orderon 05-09-2023 Physician Order [id number] 1.00CD:127 Normal [facility] XR CHEST 2 Von 11-24-2022 XR [...] by: RUBI TAVERAS Date: 2022-11-24 17:17 Normal [facility] CT LUNG CANCER SCREENINGon 1 [...] by: YEISON NAVAS Date: 2022-07-20 07:18 Normal [facility] CBC AUTO DIFFon 06-07-2022 BASO # 0.1 103/ul Normal 0.0-0.1 [facility] Comment on above: Performed By: #### C BC #### [facility] [address] [address] [address] Eran Chacon Basophils/100 WBC (Bld) 0.6 % Normal 0.2-2.0 [facility] Comment on above: Performed By: #### C BC #### [facility] [address] [place] [address] Dr. Eran Chacon EO # 0.3 103/ul Normal 0.0-0.7 [facility] Comment on above: Performed By: #### C BC #### [facility] [address] [place] [address] Dr. Eran Chacon Eosinophils/100 WBC (Bld) 3.3 % Normal 0.9-7.0 [facility] Comment on above: Performed By: #### C BC #### [facility] [address] [place] [address] Dr. Eran Chacon Erythrocyte distribution width (RBC) [Ratio] 12.9 % Normal 11.0-15.0 [facility] Comment on above: Performed By: #### C BC #### [facility] [address] [place] [address] Dr. Eran Chacon Hematocrit (Bld) [Volume fraction] 47.7 % Normal 42.0-54.0 [facility] Comment on above: Performed By: #### C BC #### [facility] [address] [place] [address] Dr. Eran Chacon Hemoglobin (Bld) [Mass/Vol] 15.9 g/dL Normal 14.0-18.0 [facility] Comment on above: Performed By: #### C BC #### [facility] [address] [place] [address] Dr. Eran Chacon IG # 0.02 10e3/ul Normal 0.00-0.03 [facility] Comment on above: Performed By: #### C BC #### [facility] [address] [place] [address] Dr. Eran Chacon IG % 0.2 % Normal 0.0-0.5 [facility] Comment on above: Performed By: #### C BC #### [facility] [address] [place] [address] Dr. Eran Chacon LYMPH # 3.4 103/ul Normal 1.2-3.8 [facility] Comment on above: Performed By: #### C BC #### [facility] [address] [place] [address] Dr. Eran Chacon Lymphocytes/100 WBC (Bld) 34.5 % Normal 20.5-60.0 [facility] Comment on above: Performed By: #### C BC #### [facility] [address] [place] [address] Dr. Eran Chacon MANUAL DIFF REQ NO Normal [facility] Comment on above: Performed By: #### C BC #### [facility] [address] [place] [address] Dr. Eran Chacon MCH (RBC) [Entitic mass] 29.6 pg Normal 25.9-34.0 [facility] Comment on above: Performed By: #### C BC #### [facility] [address] [place] [address] Dr. Eran Chacon MCHC (RBC) [Mass/Vol] 33.3 g/dL Normal 29.9-35.2 [facility] Comment on above: Performed By: #### C BC #### [facility] [address] [place] [address] Dr. Eran Chacon MCV (RBC) [Entitic vol] 88.8 fL Normal 80.0-94.0 [facility] Comment on above: Performed By: #### C BC #### [facility] [address] [place] [address] Dr. Eran Chacon MONO # 0.9 103/ul Critically high 0.3-0.8 [facility] Comment on above: Performed By: #### C BC #### [facility] [address] [place] [address] Dr. Eran Chacon Monocytes/100 WBC (Bld) 9.3 % Normal 1.7-12.0 [facility] Comment on above: Performed By: #### C BC #### [facility] [address] [place] [address] Dr. Eran Chacon NEUT # 5.2 103/ul Normal 1.4-6.5 [facility] Comment on above: Performed By: #### C BC #### [facility] [address] [place] [address] Dr. Eran Chacon Neutrophils/100 WBC (Bld) 52.1 % Normal 43.0-75.0 [facility] Comment on above: Performed By: #### C BC #### [facility] [address] [place] [address] Dr. Eran Chacon Platelet mean volume (Bld) [Entitic vol] 8.8 fL Critically low 9.5-13.5 [facility] Comment on above: Performed By: #### C BC #### [facility] [address] [place] [address] Dr. Eran Chacon PLT 287 103/ul Normal 150-450 [facility] Comment on above: Performed By: #### C BC #### [facility] [address] [place] [address] Dr. Eran Chacon RBC 5.37 106/ul Normal 4.70-6.10 [facility] Comment on above: Performed By: #### C BC #### [facility] [address] [place] [address] Dr. Eran Chacon WBC 9.9 103/ul Normal 4.0-11.0 [facility] Comment on above: Performed By: #### C BC #### [facility] [address] [place] [address] Dr. Eran Chacon ER URINE PROFILEon 2 Bilirubin Ql (U) Negative Normal NEGATIVE [facility] Comment on above: Performed By: #### BISHNU BATESRO #### [facility] [address] [place] [address] Dr. Eran Chacon Clarity (U) CLEAR Normal CLEAR [facility] Comment on above: Performed By: #### BISHNU BATESRO #### [facility] [address] [place] [address] Dr. Eran Chacon Color (U) YELLOW Normal YELLOW [facility] Comment on above: Performed By: #### BISHNU BATESRO #### [facility] [address] [place] [address] Dr. Eran GATES A micrscopic examination will be performed if indicated. Normal [facility] Comment on above: Performed By: #### HANNA BATES #### [facility] [address] [place] [address] Dr. Eran Chacon Glucose Ql (U) 500 mg/dl Abnormal NEGATIVE [facility] Comment on above: Performed By: #### BISHNU BATESRO #### [facility] [address] [address] [address] Eran Chacon Hemoglobin Ql (U) TRACE-INTACT Abnormal NEGATIVE [facility] Comment on above: Performed By: #### BISHNU BATESRO #### [facility] [address] [place] [address] Dr. Eran Chacon Ketones Ql (U) Negative Normal NEGATIVE [facility] Comment on above: Performed By: #### BISHNU BATESRO #### [facility] [address] [place] [address] Dr. Eran Chacon LEUKOCYTES Negative Normal NEGATIVE [facility] Comment on above: Performed By: #### BISHNU BATESRO #### [facility] [address] [place] [address] Dr. Eran Chacon Nitrite Ql (U) Negative Normal NEGATIVE [facility] Comment on above: Performed By: #### BISHNU BATESRO #### [facility] [address] [place] [address] Dr. Eran Chacon pH (U) 6.0 [pH] Normal 5-9 [facility] Comment on above: Performed By: #### BISHNU BATESRO #### [facility] [address] [place] [address] Dr. Eran Chacon SPEC GRAVITY 1.025 Normal 1.005-<=1.025 [facility] Comment on above: Performed By: #### BISHNU BATESRO #### [facility] [address] [place] [address] Dr. Eran Chacon UA PROTEIN Negative Normal NEGATIVE/ TRACE [facility] Comment on above: Performed By: #### HANNA BATES #### [facility] [address] [place] [address] Dr. Eran Chacon UR MICRO IND INDICATED Normal [facility] Comment on above: Performed By: #### E BISHNU SHERRO #### [facility] [address] [place] [address] Dr. Eran Chacon Urobilinogen Qn (U) 0.2 {Aureliano'U}/dL Normal 0.2 - 1. 0 [facility] Comment on above: Performed By: #### BISHNU BATESRO #### [facility] [address] [place] [address] Dr. Eran Chacon PROF 14(COMP METB)on 022 Albumin [Mass/Vol] 4.0 g/dL Normal 3.4-5.0 [facility] Comment on above: Performed By: #### C MP #### [facility] [address] [place] [address] Dr. Eran Chacon Albumin/Globulin [Mass ratio] 1.2 {ratio} Normal [facility] Comment on above: Performed By: #### C MP #### [facility] [address] [place] [address] Dr. Eran Chacon ALP [Catalytic activity/Vol] 104 U/L Normal 46-116 [facility] Comment on above: Performed By: #### C MP #### [facility] [address] [place] [address] Dr. Eran Chacon ALT [Catalytic activity/Vol] 28 U/L Normal 16-63 [facility] Comment on above: Performed By: #### C MP #### [facility] [address] [place] [address] Dr. Eran Chacon Anion gap [Moles/Vol] 7.2 mmol/L Normal [facility] Comment on above: Performed By: #### C MP #### [facility] [address] [place] [address] Dr. Eran Chacon AST [Catalytic activity/Vol] 14 U/L Critically low 15-37 [facility] Comment on above: Performed By: #### C MP #### [facility] [address] [address] [address] Eran Chacon Bilirubin [Mass/Vol] 0.4 mg/dL Normal 0.2-1.0 [facility] Comment on above: Performed By: #### C MP #### [facility] [address] [address] [address] Eran Chacon Calcium [Mass/Vol] 9.0 mg/dL Normal 8.5-10.1 [facility] Comment on above: Performed By: #### C MP #### [facility] [address] [address] [address] Eran Chacon Chloride [Moles/Vol] 103 mmol/L Normal 98-107 [facility] Comment on above: Performed By: #### C MP #### [facility] [address] [address] [address] Eran Chacon CO2 [Moles/Vol] 30.0 mmol/L Normal 21.0-32.0 [facility] Comment on above: Performed By: #### C MP #### [facility] [address] [address] [address] Eran Chacon Creatinine [Mass/Vol] 0.85 mg/dL Normal 0.70-1.30 [facility] Comment on above: Performed By: #### C MP #### [facility] [address] [address] [address] Eran Chacon EGFR-AF GUINEAN >60 Normal >=60 [facility] Comment on above: Performed By: #### C MP #### [facility] [address] [address] [address] Eran Chacon EGFR-NON AF GUINEAN >60 Normal >=60 [facility] Comment on above: Performed By: #### C MP #### [facility] [address] [place] [address] Dr. Eran Chacon Globulin (S) [Mass/Vol] 3.3 g/dL Normal [facility] Comment on above: Performed By: #### C MP #### [facility] [address] [address] [address] Eran Chacon Glucose [Mass/Vol] 165 mg/dL Critically high 74-106 [facility] Comment on above: Performed By: #### C MP #### [facility] [address] [address] [address] Eran Chacon Potassium [Moles/Vol] 4.2 mmol/L Normal 3.5-5.1 [facility] Comment on above: Performed By: #### C MP #### [facility] [address] [place] [address] Dr. Eran Chacon Protein [Mass/Vol] 7.3 g/dL Normal 6.4-8.2 [facility] Comment on above: Performed By: #### C MP #### [facility] [address] [place] [address] Dr. Eran Chacon Sodium [Moles/Vol] 136 mmol/L Normal 136-145 [facility] Comment on above: Performed By: #### C MP #### [facility] [address] [place] [address] Dr. Eran Chacon Urea nitrogen [Mass/Vol] 10.0 mg/dL Normal 7.0-18.0 [facility] Comment on above: Performed By: #### C MP #### [facility] [address] [place] [address] Dr. Eran Chacon Urea nitrogen/Creatinine [Mass ratio] 11.8 mg/mg Normal [facility] Comment on above: Performed By: #### C MP #### [facility] [address] [place] [address] Dr. Eran Chacon URINE MICROSCOPIC ONLYon BACTERIA NONE SEEN Normal NONE SEEN [facility] Comment on above: Performed By: #### HANNA BATES #### [facility] [address] [place] [address] Dr. Eran Chacon Bacteria identified Cx Nom (U) NOT INDICATED Normal [facility] Comment on above: Performed By: #### HANNA BATES #### [facility] [address] [place] [address] Dr. Eran Chacon CAST NONE SEEN Normal NONE SEEN [facility] Comment on above: Performed By: #### E RUR, UMICRO #### [facility] [address] [place] [address] Dr. Eran Chacon Crystals LM Nom (Urine sed) NONE SEEN Normal NONE SEEN [facility] Comment on above: Performed By: #### E RUR, UMICRO #### [facility] [address] [place] [address] Dr. Eran Chacon Epithelial cells LM Ql (Urine sed) RARE Normal NONE SEEN /RARE [facility] Comment on above: Performed By: #### E RUR, UMICRO #### [facility] [address] [place] [address] Dr. Eran Chacon MUCOUS NONE SEEN Normal NONE SEEN [facility] Comment on above: Performed By: #### E RUR, UMICRO #### [facility] [address] [place] [address] Dr. Eran Chacon RBC 0-2 Normal 0-2 [facility] Comment on above: Performed By: #### E IGNACIOR, UMICRO #### [facility] [address] [place] [address] Dr. Eran Chacon WBC 2-5 Abnormal NONE SEEN [facility] Comment on above: Performed By: #### E RUR, UMICRO #### [facility] [address] [place] [address] Dr. Eran Chacon MRI SHOULDER LT WO [...] by: YEISON NAVAS Date: 2022-02-02 17:09 Normal [facility] XR shoulder LT min 2V*on XR shoulder LT min 2V* [facility] [place] [address] [place] [address] XRay Report Signed Patient: Nicholas Ziegler MR#: [id number] : 1960 Acct:[id number] Age/Sex: 61 / M ADM Date: 01/25/22 Loc: [facility] Room: Type: [facility] Attending Dr: Kesha Trujillo MD Ordering [...] Otilia Nunez M.D.01/25/2022 11:41 AM Dictation Location: [place] [address] Transcribed By: [facility] 01/25/22 1141 Dictated By: Otilia Nunez MD 01/25/22 1139 Signed By: 01/25/22 1141 Normal [facility] Vital Signs Date Time Vital Sign Value Performing Clinician Facility 03-03-2024 11:54-0400 Body height 175.[address] [facility] 03-03-2024 11:54-0400 Body mass index (BMI) [Ratio] 34.7 kg/m2 [facility] 03-03-2024 11:54-0400 Body weight 106.[address] [facility] 03-03-2024 11:54-0400 Diastolic blood pressure 81 mm[Hg] [facility] 03-03-2024 11:54-0400 Heart rate 69 /min [facility] 03-03-2024 11:54-0400 Systolic blood pressure 129 mm[Hg] [facility] 12-17-2023 08:54-0400 Body height 175.[address] [facility] 12-17-2023 08:54-0400 Body mass index (BMI) [Ratio] 35.2 kg/m2 [facility] 12-17-2023 08:54-0400 Body weight 108.[address] [facility] 12-17-2023 08:54-0400 Diastolic blood pressure 76 mm[Hg] [facility] 12-17-2023 08:54-0400 Heart rate 76 /min [facility] 12-17-2023 08:54-0400 Systolic blood pressure 154 mm[Hg] [facility] 12-05-2023 08:52-0400 Body height 175.[address] [facility] 12-05-2023 08:52-0400 Body mass index (BMI) [Ratio] 35 kg/m2 [facility] 12-05-2023 08:52-0400 Body weight 107.[address] [facility] 12-05-2023 08:52-0400 Diastolic blood pressure 78 mm[Hg] [facility] 12-05-2023 08:52-0400 Heart rate 69 /min [facility] 12-05-2023 08:52-0400 Systolic blood pressure 147 mm[Hg] [facility] 09-13-2023 13:30-0500 Body height 175.26 cm Hannah Magallanes Other [facility] 09-13-2023 13:30-0500 Body mass index (BMI) [Ratio] 33.22 kg/m2 Hannah Magallanes Other [facility] [employer] Other 09-13-2023 13:30-0500 Body temperature 98.4 [degF] Hannah Magallanes Other [employer] Other 09-13-2023 13:30-0500 Body weight 102.06 kg Hannah Magallanes Other [employer] Other 09-13-2023 13:30-0500 Body weight 102.[address] [facility] 09-13-2023 13:30-0500 Diastolic blood pressure 80 mm[Hg] Hannah Magallanes Other [facility] 09-13-2023 13:30-0500 SaO2% (BldA) [Mass fraction] 93 % Hannah Magallanes Other [employer] Other 09-13-2023 13:30-0500 Systolic blood pressure 118 mm[Hg] Hannah Magallanes Other [facility] 08-13-2023 10:30-0500 Body height 175.26 cm Hannah Magallanes Other [employer] Other 08-13-2023 10:30-0500 Body mass index (BMI) [Ratio] 33.9 kg/m2 Hannah Magallanes Other [facility] Other 08-13-2023 10:30-0500 Body weight 104.15 kg Hannah Magallanes Other [facility] Other 08-13-2023 10:30-0500 Diastolic blood pressure 78 mm[Hg] Hannah Magallanes Other [employer] Other 08-13-2023 10:30-0500 Systolic blood pressure 124 mm[Hg] Hannah Magallanes Other [facility] Other 06-25-2023 08:45-0500 Body height 175.26 cm Hannah Magallanes Other [employer] Other 06-25-2023 08:45-0500 Body mass index (BMI) [Ratio] 33.37 kg/m2 Hannah Magallanes Other [employer] Other 06-25-2023 08:45-0500 Body temperature 96.5 [degF] Hannah Magallanes Other [employer] Other 06-25-2023 08:45-0500 Body weight 102.51 kg Hannah Magallanes Other [employer] Other 06-25-2023 08:45-0500 Diastolic blood pressure 85 mm[Hg] Hannah Magallanes Other [employer] Other 06-25-2023 08:45-0500 Systolic blood pressure 149 mm[Hg] Hannah Magallanes Other [employer] Other 05-28-2023 10:45-0400 Body height 175.26 cm Hannah Magallanes Other [employer] Other 05-28-2023 10:45-0400 Body mass index (BMI) [Ratio] 33.52 kg/m2 Hannah Magallanes Other [employer] Other 05-28-2023 10:45-0400 Body weight 102.97 kg Hannah Magallanes Other [employer] Other 05-28-2023 10:45-0400 Diastolic blood pressure 82 mm[Hg] Hananh Magallanes Other [employer] Other 05-28-2023 10:45-0400 Systolic blood pressure 147 mm[Hg] Hannah Magallanes Other [employer] Other 2023 08:45-0400 Body height 175.26 cm Hannah Magallanes Other [employer] Other 2023 08:45-0400 Body mass index (BMI) [Ratio] 33.52 kg/m2 Hannah Magallanes Other [employer] Other 2023 08:45-0400 Body weight 102.97 kg Hannah Magallanes Other [employer] Other 2023 08:45-0400 Diastolic blood pressure 85 mm[Hg] Hannah Magallanes Other [employer] Other 2023 08:45-0400 Systolic blood pressure 156 mm[Hg] Hannah Magallanes Other [employer] Other 04-30-2023 09:45-0400 Body height 175.26 cm Hannah Magallanes Other [employer] Other 04-30-2023 09:45-0400 Body mass index (BMI) [Ratio] 34.32 kg/m2 Hannah Magallanes Other [facility] Other 04-30-2023 09:45-0400 Body temperature 96.2 [degF] Hannah Magallanes Other [facility] Other 04-30-2023 09:45-0400 Body weight 105.42 kg Hannah Magallanes Other [facility] Other 04-30-2023 09:45-0400 Diastolic blood pressure 78 mm[Hg] Hannah Magallanes Other [facility] Other 04-30-2023 09:45-0400 Respiratory rate 16 /min Hannah Magallanes Other [facility] Other 04-30-2023 09:45-0400 Systolic blood pressure 146 mm[Hg] Hannah Magallanes Other [facility] Other 02-20-2023 09:15-0400 Body height 175.26 cm Hannah Magallanes Other [facility] Other 02-20-2023 09:15-0400 Body mass index (BMI) [Ratio] 33.46 kg/m2 Hannah Magallanes Other [facility] Other 02-20-2023 09:15-0400 Body weight 102.79 kg Hannah Magallanes Other [facility] Other 02-20-2023 09:15-0400 Diastolic blood pressure 77 mm[Hg] Hannah Magallanes Other [facility] Other 02-20-2023 09:15-0400 Systolic blood pressure 131 mm[Hg] Hannah Magallanes Other [facility] Other 01-17-2023 08:45-0400 Body height 175.26 cm Hannah Magallanes Other [facility] Other 01-17-2023 08:45-0400 Body mass index (BMI) [Ratio] 33.37 kg/m2 Hannah Magallanes Other [facility] Other 01-17-2023 08:45-0400 Body weight 102.51 kg Hannah Magallanes Other [facility] Other 01-17-2023 08:45-0400 Diastolic blood pressure 79 mm[Hg] Hannah Magallanes Other [facility] Other 01-17-2023 08:45-0400 Systolic blood pressure 128 mm[Hg] Hannah Magallanes Other [facility] Other 11-23-2022 09:30-0400 Body height 175.26 cm Hannah Magallanes Other [facility] Other 11-23-2022 09:30-0400 Body mass index (BMI) [Ratio] 33.96 kg/m2 Hannah Magallanes Other [facility] Other 11-23-2022 09:30-0400 Body weight 104.33 kg Hannah Magallanes Other [facility] Other 11-23-2022 09:30-0400 Diastolic blood pressure 72 mm[Hg] Hannah Magallanes Other [facility] Other 11-23-2022 09:30-0400 Systolic blood pressure 122 mm[Hg] Hannah Magallanes Other [facility] Other 09-04-2022 11:30-0500 Body height 175.26 cm Hannah Magallanes Other [facility] Other 09-04-2022 11:30-0500 Body mass index (BMI) [Ratio] 33.52 kg/m2 Hannah Magallanes Other [facility] Other 09-04-2022 11:30-0500 Body weight 102.97 kg Hannah Magallanes Other [facility] Other 09-04-2022 11:30-0500 Diastolic blood pressure 80 mm[Hg] Hannah Magallanes Other [facility] Other 09-04-2022 11:30-0500 SaO2% (BldA) [Mass fraction] 95 % Hannah Magallanes Other [facility] Other 09-04-2022 11:30-0500 Systolic blood pressure 122 mm[Hg] Hannah Magallanes Other [facility] Other 02-06-2022 12:45-0400 Body height 175.26 cm Kesha Olexa Other [facility] Other 02-06-2022 12:45-0400 Body mass index (BMI) [Ratio] 31.01 kg/m2 Kesha Olexa Other [facility] Other 02-06-2022 12:45-0400 Body weight 95.26 kg Kesha Olexa Other [facility] Other 05-26-2021 13:15-0400 Body height 175.26 cm Harriet Ginty Other [facility] Other 05-26-2021 13:15-0400 Body mass index (BMI) [Ratio] 31.01 kg/m2 Harriet Ginty Other [facility] Other 05-26-2021 13:15-0400 Body temperature 98.3 [degF] Harriet Chepe Other [facility] Other 05-26-2021 13:15-0400 Body weight 95.26 kg Harriet Elizabethnty Other [facility] Other 05-26-2021 13:15-0400 SaO2% (BldA) [Mass fraction] 96 % Harriet Elizabethnty Other [facility] Other Encounters Encounter Date Encounter Type Care Provider Facility Start: 03-03-2024 End: 03-03-2024 ambulatory [facility] Work Phone: Start: 03-03-2024 End: 03-03-2024 Patient encounter procedure [facility] Work Phone: Start: 02-27-2024 Non-patient / Non-visit [facility] [employer] Work Phone: Start: 02-24-2024 End: 02-24-2024 ambulatory Zacarias Pike MD Facility: [facility] Start: 02-03-2024 End: 02-03-2024 ambulatory Zacarias Pike MD Facility:[facility] Start: 01-20-2024 End: 01-20-2024 ambulatory Zacarias Pike MD Facility:[facility] Start: 12-17-2023 End: 12-17-2023 ambulatory [facility] Work Phone: Start: 12-17-2023 End: 12-17-2023 Patient encounter procedure [facility] Physician [facility] Work Phone: Start: 12-05-2023 End: 12-05-2023 ambulatory [facility] Work Phone: Start: 12-05-2023 End: 12-05-2023 Patient encounter procedure [facility] Physician [facility] Work Phone: Start: 10-23-2023 Non-patient / Non-visit [facility] Physician [facility] Work Phone: Start: 10-08-2023 Non-patient / Non-visit [facility] Physician [facility] Work Phone: Start: 10-07-2023 End: 10-07-2023 ambulatory JIN POCOS Not Available Start: 09-18-2023 End: 09-18-2023 ambulatory Hannah Magallanes Other [facility] Other Start: 09-18-2023 Telephone encounter Hannah Magallanes [facility] Start: 09-13-2023 End: 09-13-2023 ambulatory Hannah Magallanes Other [facility] Other Start: 09-13-2023 Office outpatient vi sit 15 minutes Hannah Sona [facility] Start: 09-13-2023 End: 09-13-2023 Patient encounter procedure [facility] Physician [facility] Start: 09-11-2023 Telephone encounter Argentina coleman [...] reinier.) Start: 09-10-2023 End: 09-10-2023 ambulatory Hannah Sona Other [facility] Other Start: 09-10-2023 Telephone encounter Hannah Magallanes [facility] Start: 09-06-2023 End: 09-06-2023 ambulatory Hannah Sona Other [facility] Other Start: 09-06-2023 Telephone encounter Hannah Magallanes [facility] Start: 09-02-2023 End: 09-02-2023 ambulatory JIN POCOS Not Available Start: 08-20-2023 End: 08-20-2023 ambulatory Hannah Sona Other [facility] Other Start: 08-20-2023 Telephone encounter Hannah Magallanes [facility] Start: 08-13-2023 End: 08-13-2023 ambulatory Hannah Sona Other [facility] Other Start: 08-13-2023 Office outpatient vi sit 25 minutes Hannah Sona [facility] Start: 08-13-2023 Telephone encounter Hannah Magallanes [facility] Start: 08-06-2023 End: 08-06-2023 ambulatory Hannah Magallanes Other [facility] Other Start: 08-06-2023 Telephone encounter Hannah Magallanes [facility] Start: 07-29-2023 End: 07-29-2023 ambulatory JIN POCOS Not Available Start: 07-22-2023 End: 07-22-2023 ambulatory Hannah Magallanes Other [facility] Other Start: 07-22-2023 Telephone encounter Hannah Magallanes [facility] Start: 07-19-2023 End: 07-19-2023 ambulatory Hannah Magallanes Other [facility] Other Start: 07-19-2023 Telephone encounter Hannah Magallanes [facility] Start: 07-18-2023 End: 07-18-2023 ambulatory Hannah Magallanes Other [facility] Other Start: 07-18-2023 Telephone encounter Hannah Magallanes [facility] Start: 07-02-2023 End: 07-02-2023 ambulatory Hannah Magallanes Other [facility] Other Start: 07-02-2023 Office outpatient vi sit 15 minutes Hannah Magallanes [facility] Start: 07-02-2023 Telephone encounter Hannah Magallanes [facility] Start: 06-25-2023 End: 06-25-2023 ambulatory Hannah Magallanes Other [facility] Other Start: 06-25-2023 Office outpatient vi sit 15 minutes Hannah Magallanes [facility] Start: 06-21-2023 End: 06-21-2023 ambulatory Hannah Magallanes Other [facility] Other Start: 06-21-2023 Encounter by compute r link Hannah Magallanes [facility] Start: 06-20-2023 End: 06-20-2023 ambulatory Hannah Magallanes Other [facility] Other Start: 06-20-2023 Telephone encounter Hannah Magallanes [facility] Start: 06-17-2023 End: 06-17-2023 ambulatory Hannah Magallanes Other [facility] Other Start: 06-17-2023 Telephone encounter Hannah Magallanes [facility] Start: 06-10-2023 End: 06-10-2023 ambulatory Hannah Magallanes Other [facility] Other Start: 06-10-2023 Telephone encounter Hannah Magallanes [facility] Start: 06-03-2023 End: 06-03-2023 ambulatory Hannah Sona Other [facility] Other Start: 06-03-2023 Telephone encounter Hannah Magallanes [facility] Start: 05-30-2023 End: 05-31-2023 ambulatory Barbie Tellez [place] [facility] Start: 05-30-2023 End: 05-30-2023 Patient encounter procedure Barbie Tellez Pocos [facility] Start: 05-28-2023 End: 05-28-2023 ambulatory Hannah Magallanes Other [facility] Other Start: 05-28-2023 Office outpatient vi sit 15 minutes Hannah Magallanes [facility] Start: 2023 End: 2023 ambulatory Hannah Magallanes Other [facility] Other Start: 2023 Office outpatient vi sit 15 minutes Hannah Magallanes [facility] Start: 05-16-2023 End: 05-16-2023 ambulatory Hannah Magallanes Other [facility] Other Start: 05-16-2023 Telephone encounter Hannah Sona [facility] Start: 04-30-2023 End: 04-30-2023 ambulatory Hannah Magallanes Other [facility] Other Start: 04-30-2023 Office outpatient vi sit 15 minutes Hannah Magallanes [facility] Start: 04-26-2023 End: 04-26-2023 ambulatory Hannah Magallanes Other [facility] Other Start: 04-26-2023 Telephone encounter Hannah Magallanes [facility] Start: 04-23-2023 End: 04-23-2023 ambulatory Hannah Magallanes Other [facility] Other Start: 04-23-2023 Telephone encounter Hannah Sona [facility] Start: 03-25-2023 End: 03-25-2023 ambulatory Hannah Magallanes Other [facility] Other Start: 03-25-2023 Telephone encounter Hannah Sona [facility] Start: 03-06-2023 End: 03-06-2023 ambulatory Hannah Sona Other [facility] Other Start: 03-06-2023 Telephone encounter Hannah Sona [facility] Start: 02-20-2023 End: 02-20-2023 ambulatory Hannah Sona Other [facility] Other Start: 02-20-2023 Office outpatient vi sit 25 minutes Hannah Magallanes [facility] Start: 02-05-2023 End: 02-05-2023 ambulatory Hannah Sona Other [facility] Other Start: 02-05-2023 Telephone encounter Hannah Sona [facility] Start: 01-21-2023 End: 01-21-2023 ambulatory Hannah Sona Other [facility] Other Start: 01-21-2023 Telephone encounter Hannah Sona [employer] Start: 01-17-2023 End: 01-17-2023 ambulatory Hannah Sona Other [facility] Other Start: 01-17-2023 Office outpatient vi sit 15 minutes Hannah Magallanes [facility] Start: 12-24-2022 End: 12-24-2022 ambulatory Hannah Sona Other [facility] Other Start: 12-24-2022 Telephone encounter Hannah Sona [facility] Start: 12-03-2022 End: 12-03-2022 ambulatory Hannah Magallanes Other [facility] Other Start: 12-03-2022 Telephone encounter Hannah Sona [facility] Start: 11-27-2022 End: 11-27-2022 ambulatory Hannah Magallanes Other [facility] Other Start: 11-27-2022 Telephone encounter Hannah Magallanes [facility] Start: 11-26-2022 End: 11-26-2022 ambulatory Hannah Magallanes Other [facility] Other Start: 11-26-2022 Telephone encounter Hannah Magallanes [facility] Start: 11-24-2022 End: 11-25-[address] HANNAH MAGALLANES Facility:[facility] Start: 11-23-2022 End: 11-23-2022 ambulatory Hannah Magallanes Other [facility] Other Start: 11-23-2022 Office outpatient vi sit 15 minutes Hannah Magallanes [facility] Start: 11-05-2022 End: 11-05-2022 ambulatory Hannah Magallanes Other [facility] Other Start: 11-05-2022 Telephone encounter Hannah Magallanes [facility] Start: 10-03-2022 End: 10-03-2022 ambulatory Hannah Magallanes Other [facility] Other Start: 10-03-2022 Telephone encounter Hannah Magallanes [facility] Start: 09-04-2022 End: 09-04-2022 ambulatory Hannah Magallanes Other [facility] Other Start: 09-04-2022 Office outpatient vi sit 25 minutes Hannah Magallanes [facility] Start: 07-26-[address] HANNAH MAGALLANES Facil ity:[facility] Start: 07-19-2022 End: 07-20-[address] WILFREDO ENGLE Facility:[facility] Start: 06-07-2022 End: 06-07-[address] HANANH MAGALLANES Facility:[facility] Start: 03-15-2022 ambulatory KESHA TRUJILLO Facility:[facility] 1 Start: 02-06-2022 End: 02-06-2022 ambulatory Kesha Trujillo Other [facility] Other Start: 02-06-2022 Office outpatient vi sit 25 minutes Kesha Trujillo [facility] Start: 02-02-2022 End: 02-03-2022 ambulatory KESHA TRUJILLO Facility:[facility] Start: 12-28-2021 End: 12-28-[address] HANNAH MAGALLANES Facility:[facility] Start: 12-12-2021 End: 12-13-2021 ambulatory KESHA TRUJILLO [facility] Other Start: 12-12-2021 Office outpatient ne w 30 minutes Kesha Trujillo [facility] Start: 05-26-2021 Office outpatient vi sit 15 minutes Harriet Gintcristiano [facility] Procedures Date Procedure [...] [facility] [address] [place] [address] Barbie Tapia DO [address] [address] [facility] XR Pelvis and Hip - bilateral [facility] Immunizations Immunization Date Immunization Notes Care Provider Fa merlene 06-02-2018 Influenza, injectabl e, Madin Man Canine Kidney, preservative free, quadrivalent Argentina Clinton PT Work Phone: [facility] 05-17-2017 influenza virus vaccine, split virus (incl. purified surface antigen) Hannah Magallanes Other [facility] Other 05-17-2017 influenza virus vaccine, unspecified formulation [facility] 05-16-2017 influenza, injectabl e, quadrivalent, preservative free Argentina Clinton PT Work Phone: [facility] 06-28-2016 influenza, injectabl e, quadrivalent, preservative free Argentinacurtis Clinton PT Work Phone: [facility] 06-28-2016 tetanus and diphther ia toxoids, adsorbed, preservative free, for adult use (5 Lf of tetanus toxoid and 2 Lf of diphtheria toxoid) Hannah Magallanes Other [facility] 05-25-2015 influenza, seasonal, injectable, preservative free Argentina Clinton PT Work Phone: [facility] 05-25-2015 tetanus and diphther ia toxoids, adsorbed, preservative free, for adult use (5 Lf of tetanus toxoid and 2 Lf of diphtheria toxoid) Hannah Magallanes Other [facility] 06-15-1999 pneumococcal conjuga te vaccine, 7 valent Argentina Clinton PT Work Phone: [facility] Payers Date Payer Category Payer Medicaid [id number] 2013 Medicare [id number] 1960 Unknown [id number] 2.16.84 0.1.861988.3.579.2.593 1960 Unknown [id number] 2.16.84 0.1.304731.3.579.2.593 1960 Unknown [id number] 2.16.84 0.1.285972.3.579.2.593 1960 Unknown [id number] 2.16.84 0.1.176439.3.579.2.593 1960 Unknown [id number] 2.16.84 0.1.938575.3.579.2.593 1960 Unknown [id number] 2.16.84 0.1.116829.3.579.2.593 1960 Unknown [id number] 2.16.84 0.1.084346.3.579.2.593 1960 Unknown [id number] 2.16.84 0.1.297938.3.579.2.593 1960 Unknown [id number] 2.16.8 40.1.943259.3.579.2.727 1960 Unknown [id number] 2.16.84 0.1.469614.3.579.2.1259 1960 Unknown [id number] 2.16.84 0.1.093925.3.579.2.1259 1960 Unknown [id number] 2.16.84 0.1.370421.3.579.2.1259 1960 Unknown [id number] 2.16.840 .1.491082.3.579.2.1259 1960 Unknown [id number] 2.16. 840.1.947903.3.579.2.196 1960 Unknown [id number] 2.16. 840.1.824599.3.579.2.196 1960 Unknown [id number] 2.16. 840.1.049837.3.579.2.196 1959 Medicaid [id number] 2. [id number] 1959 Medicare [id number] 2.1 [id number] Self-pay Self Pay [id number] Social History Date Type Detail Facility Start: 09-02-2023 Sex Assigned At [facility] Tobacco smoking status No Smokin g Status Entered [facility] Start: 03-27-2023 Tobacco smoking status MDIS Smokes tobacco daily [facility] Work Phone: History of tobacco use [facility]igarette Smoker [facility] Start: 03-27-2023 End: 09-02-2023 Cigarettes smoked current (pack per day) - Reported 0.5 [facility] Start: 03-27-2023 Tobacco use and exposure Smokeless tobacco non-user [facility] Start: 09-02-2023 Alcohol intake Lifetime non-drinker (finding) [facility] Start: 03-27-2023 Alcohol Comment Caffine- Soda [facility] Start: 1960 Sex Assigned At Male [facility] Start: 08-21-2023 Gender identity Identifies as male gender (finding) [facility] Start: 08-21-2023 Sexual orientation Heterosexual (finding) [facility] Start: 02-06-2017 Tobacco smoking status NHIS Ex-smoker (finding) [facility] Medical Equipment Procedure Code Equipment Code Equipment Original Text Equi pment Identifier Dates Accu-Chek FastClix Lancet - Clinical Notes 05-26-2021 to 10-02-2023 Telephone Encounter - Maris Tavera - 10/02/2023 1:35 PM ESTTelephone Encounter - Fabiola Hospitalker - 10/02/2023 1:35 PM EST Note Date & Type Note Facility 10-02-2023 Telephone encounter Note Form atting of this note might be different from the original. No attempts to hear back; closing referral. [facility] 10-02-2023 Miscellaneous Notes Formattin g of this note might be different from the original. No attempts to hear back; closing referral. documented in this encounter [facility] 09-13-2023 Evaluation note Encounter Date Diagnosis Assessment Notes Aug, Chronic obstructive pulmonary disease, unspecified (ICD-10 - J44.9) Finish antibiotics and prednisone as prescribed. Denies pulmonary referral at this time. Hasn't smoked since 09/08 and declines chantix or patches. Aug, Current smoker (ICD-10 - F17.200) [facility] Other 01-23-2024 Evaluation note* Encounter Date Diagnosis Assessment Notes Treatment Notes Treatment Clinical Notes Aug, Lumbar radicular pain (ICD-10 - M54.16) [facility] Other 01-19-2024 Evaluation note* Encounter Date Diagnosis Assessment Notes Treatment Notes Treatment Clinical Notes Aug, Lumbar radicular pain (ICD-10 - M54.16) [facility] Other 12-26-2023 Evaluation note* Encounter Date Diagnosis Assessment Notes Treatment Notes Treatment Clinical Notes Jul, Type 2 diabetes mellitus with hyperglycemia, without long-term current use of insulin (ICD-10 - E11.65) [facility] Other 12-26-2023 Evaluation note* Encounter Date Diagnosis [...] T3s after shoulder pain has improved post-operatively. [facility] Other 12-04-2023 Evaluation note* Encounter Date Diagnosis Assessment Notes Treatment Notes Treatment Clinical Notes Jul, Type 2 diabetes mellitus with hyperglycemia, without long-term current use of insulin (ICD-10 - E11.65) [facility] Other 12-01-2023 Evaluation note* Encounter Date Diagnosis Assessment Notes Treatment Notes Treatment Clinical Notes Jul, Type 2 diabetes mellitus with hyperglycemia, without long-term current use of insulin (ICD-10 - E11.65) [facility] Other 11-30-2023 Evaluation note* Encounter Date Diagnosis Assessment Notes Treatment Notes Treatment Clinical Notes Jun, Labral tear of shoulder, right, subsequent encounter (ICD-10 - S43.431D) [facility] Other 11-14-2023 Evaluation note* Encounter Date Diagnosis [...] pain (ICD-10 - R07.9) r/o cardiac cause [facility] Other 11-07-2023 Evaluation note* Encounter Date Diagnosis [...] to decrease dose and possibly discontinue medication. [facility] Other 11-02-2023 Evaluation note* Encounter Date Diagnosis Assessment Notes Treatment Notes Treatment Clinical Notes Jun, Acute pain of right shoulder (ICD-10 - M25.511) [facility] Other 10-30-2023 Evaluation note* Encounter Date Diagnosis Assessment Notes Treatment Notes Treatment Clinical Notes May, Acute pain of right shoulder (ICD-10 - M25.511) [facility] Other 10-23-2023 Evaluation note* Encounter Date Diagnosis Assessment Notes Treatment Notes Treatment Clinical Notes May, Acute pain of right shoulder (ICD-10 - M25.511) [facility] Other 10-16-2023 Evaluation note* Encounter Date Diagnosis Assessment Notes Treatment Notes Treatment Clinical Notes May, Acute pain of right shoulder (ICD-10 - M25.511) [facility] Other 10-10-2023 Evaluation note* Encounter Date Diagnosis Assessment Notes Treatment Notes Treatment Clinical Notes May, Acute pain of right shoulder (ICD-10 - M25.511) MRI and surgery planning pending. Pt understands this is a controlled substance and to call in 1 week w update on treatment plan. May, Bronchitis (ICD-10 - J40) Finish antibiotic, rest, hydrate Steroids for wheezing. [facility] Other 10-04-2023 Evaluation note* Encounter Date Diagnosis Assessment Notes Treatment Notes Treatment Clinical Notes May, Acute pain of right shoulder (ICD-10 - M25.511) Reviewed OAR[place] and discussed short term plan of increase in pain medication. He is due for a refill of the T3s presently. Stop them, replace w norco. Pt understands weekly prescription and will need to d/c after anticipated surgery. [facility] Other 09-12-2023 Evaluation note* Encounter Date Diagnosis [...] office and the ER visit on 04/26 [facility] Other 07-05-2023 Evaluation note* Encounter Date Diagnosis [...] and will need less prn pain med. [facility] Other 06-01-2023 Evaluation note* Encounter Date Diagnosis [...] left shoulder (ICD-10 - M25.512) as above. [facility] Other 04-17-2023 Evaluation note* Encounter Date Diagnosis Assessment Notes Treatment Notes Treatment Clinical Notes Nov, Bronchitis (ICD-10 - J40) [facility] Other 04-11-2023 Evaluation note* Encounter Date Diagnosis Assessment Notes Treatment Notes Treatment Clinical Notes Nov, Disc degeneration, lumbar (ICD-10 - M51.36) Nov, Lumbar radicular pain (ICD-10 - M54.16) [facility] Other 04-07-2023 Evaluation note* Encounter Date Diagnosis [...] quit smoking. Pt verbalizes understanding and agreement. [facility] Other 02-15-2023 Evaluation note* Encounter Date Diagnosis Assessment Notes Treatment Notes Treatment Clinical Notes Sep, Lumbar radicular pain (ICD-10 - M54.16) [facility] Other 01-17-2023 Evaluation note* Encounter Date Diagnosis [...] is outlined on the test result page. [facility] Other 10-20-2022 NoteIndication: Calculus in kidney. Comparison: [...] Electronically authenticated by: JOHN PINTO Date: 2022-06-07 20:07[facility]06-21-2022 Evaluation note* Encounter Date Diagnosis [...] of repair, infection and wound healing delays. [facility] Other 04-26-2022 NotePROCEDURE: XR SHOULDER LT 2V or > COMPARISON: None. HISTORY: Pain of left shoulder joint FINDINGS: BONES:No acute fracture or dislocation. 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 No visible soft tissue swelling. EFFUSION:None visible. OTHER: Negative. IMPRESSION: Mild osteoarthritis Electronically authenticated by: BARBIE MEMBRENO Date: 2021-12-12 15:[address] [place], [place] [id number] Evaluation note* Encounter Date Diagnosis Assessment Notes [...] pain of left shoulder (ICD-10 - M25.512) [facility] [employer] Other 10-08-2021 Evaluation note* Encounter Date Diagnosis [...] as needed for cough. Advised patient that [place] contains antihistamine and cough suppressant and to be cautious using other OTC cold medications. Patient to follow up with PCP if symptoms do not improve. Immediate eval if SOB, difficulty breathing, chest pain, dizziness, or other concerning symptoms. Patient verbalizes understanding and is agreeable to treatment plan [facility] [employer] Other Evaluation + Plan note No data available for this section [facility] noteNo InformationNortWell[facility] [employer] Other Evaluation note* Diagnosis Onset Date Resolution Status Arthralgia acute Lumbar pain acute Type II diabetes mellitus ac [facility] Work Phone: Evaluation note* Diagnosis Onset Date Resolution Status Arthralgia acute Lumbar pain acute Type II diabetes mellitus ac [place] Bilateral hip pain [facility] Work Phone: Evaluation note* Diagnosis Onset Date Resolution Status Arthralgia acute Lumbar pain acute Type II diabetes mellitus ac [place] Bilateral hip pain acute Lumbar pain acute [facility] Work Phone: History general Narrative - Reported* Type Description Date Medical History Asthma Medical History skin cancer-lip Surgical History Left lung biopsy 1977 Surgical History L4 and L5 disc fusion 1984 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 Surgical History carpal tunnel release 2016 Surgical History tonsillectomy Hospitalization History 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 Hospitalization History pneumonia [facility] [employer] Other Hospital Discharge instructions No data available for this section [facility] No data available for this section [facility] Summary Purpose Family History No Family History Records Found Relationship Condition Age at Onset Recorded Date/T alayna father Unknown Malignant neoplasm Unknown Not Specified Unknown Relationship Condition Age at Onset Recorded Date/T alayna father Unknown Malignant neoplasm Unknown mother Unknown Advance Directives No Advanced Directives Records Found Advance Directive Response Recorded Date/ Time Advance Directives No January 25 9:53am Reason for Referral Reason *FU 02/27 Epigastr ic pain, gall bladder polyp. Agrees to treatment, except colonoscopy. Last OV and today, labs and US scanned into chart. thanks Diagnosis 1 Epigastric abdominal pain (R10.13) Referral Organization [facility] Referring Provider First Name Hannah Referring Provider Last Name Sona Referring Provider Specialty [facility] Referred Organization [facility] Referred Provider Sai Martinez Referred Address ,[place], [place],[address] Referred Provider Specialty Surgery Referral Priority Routine General Notes Es Camilo 11:38:02 AM >received today, attachments made, notes locked, referral faxed Reason 01/28/23 Access Or tho - B shoulder pain L>R - hopes for injections. Diagnosis 1 Pain in right should er (M25.511) Referral Organization [facility] Referring Provider First Name Hannah Referring Provider Last Name Sona Referring Provider Specialty [facility] Referred Organization [facility] Referred Provider Barbie Tapia Referred Address ,[place], [place],[address] Referred Provider Specialty Orthopaedic Surgery Referral Priority [...] in right should er (M25.511) Referral Organization [facility] Referring Provider First Name Hannah Referring Provider Last Name Sona Referring Provider Specialty [facility] cine Referred Organization [facility] Referred Provider Barbie Tapai Referred Address ,[place], [place],[address] Referred Provider Specialty Orthopaedic Surgery Referral Priority [...] Type II diabetes mellitus Bilateral hip pain Chief Complaint JOINTS HURTING go over labs Jaw pain Reason for Visit Arthralgia Lumbar pain Type II diabetes mellitus Bilateral hip pain Lumbar pain Additional Source Comments REASON FOR VISIT [...] section and content) DATE CREATED AUTHOR 02/10/2022 [facility] DATE CREATED AUTHOR AUTHOR'S ORGANIZ ATION 12/04/2022 [facility] DATE CREATED AUTHOR AUTHOR'S ORGANIZ ATION 06/01/[address] [facility] DATE CREATED AUTHOR AUTHOR'S ORGANIZ ATION 10/07/2023 [facility] DATE CREATED AUTHOR AUTHOR'S ORGANIZ ATION 03/07/2024 [facility] Patient Care team informatio n (unrecognized section and content) Team Status: Active Member Role Status Dates Hannah Magallanes MD Primary Care Provider Active Team Status: Inactive Member Role Status Dates Hannah Magallanes MD Primary Care Provide r, Attending Provider Active Start: December 05, 2023 End: December 05, 2023 Team Status: Inactive Member Role Status Dates Hannah Magallanes MD Primary Care Provide r, Attending Provider Active Start: December 17, 2023 End: December 17, 2023 Team Status: Active Member Role Status Dates Hannah Magallanes MD Primary Care Provider Active Start: February 27, 2024 Arnoldo Somers MD Attending Provider Active St art: February 27, 2024 Team Status: Inactive Member Role Status Dates Hannah Magallanes MD Primary Care Provide r, Attending Provider Active Start: March 03, 2024 End: March 03, 2024 Team Status: Active Member Role Status Dates Hannah Magallanes MD Primary Care Provider Active Start: October 08, 2023 STEPHANY Davies Attending Provider Active Start : October 08, 2023 Team Status: Active Member Role Status Dates Hannah Magallanes MD Primary Care Provider Active Start: October 23, 2023 STEPHANY Davies Attending Provider Active Start : October 23, 2023 Jewel Waxer Relationship Specialty Start Date End Date Hannah Magallanes MD [address] [place] [address] PCP - General Family Medicine 01/23/23 Team [...] BE BASED ON THE PRIMARY CLINICAL RECORDS. [facility]. provides no warranty or guarantee of the accuracy or completeness of information in this document.
[2024-03-16 09:29] VITALS: BP 129/78; PULSE 79; TEMP 36.2; O2SAT 96
[2024-03-16 09:44] LABS: Glucometer 219 mg/dL (74-106)
[2024-03-16 10:28] VITALS: BP 135/81; PULSE 70; O2SAT 97
[2024-03-16] MEDS: LIDOCAINE HCL 2% 400 MG/20 ML MDV INJ (10:30)
[2024-03-16] MEDS: BUPIVACAINE HCL 0.25% PF 25 MG/10 ML VIAL 6 ML INJ (10:30)
[2024-03-16 10:31] VITALS: BP 140/90; PULSE 69; O2SAT 96
--- NOTE | 2024-03-16 10:33 | W.PM.PROCNOT ---
Date of procedure: 03/16/24 Pre-op diagnosis: Pain due to lumbar spondylosis without myelopathy Post-op diagnosis: same as pre-op Procedure: Procedure: Bilateral L4-5, l5-S1 medial branch block Medications: Bupivacaine 0.25% 6cc The patient was seen and examined in the preoperative holding area.? An informed consent was obtained and placed on the chart.? The patient was brought to the medical procedure unit and placed in the prone position.? A timeout was completed verifying correct patient, procedure site, positioning, plan, and special equipment.? Using aseptic technique, the needle was placed at left L4. Under direct fluoroscopic visualization a Quincke-tipped spinal needle was advanced to the junction of the superior articulating process with the transverse process at the designated medial branch segment.? Preceded by negative aspiration, the above-mentioned injectate was placed in 1 mL aliquots.? The procedure was repeated at left L5, S1.? The needle was removed and insertion site was covered. The same procedure, at the same levels, was completed on the right side. The patient was taken to the postprocedural recovery area and monitored for an appropriate length of time before found suitable for discharge in the company of a responsible adult. Anesthesia: Local Surgeon: Zacarias Pike Pathology: none sent Condition: stable Disposition: no change
== END 2024-03-16 10:38 | disposition home or self-care (01) ==
PROVIDERS: PCP Family Medicine; Visit Provider Anesthesiology
DX: M47.816 Spondylosis without myelopathy or radiculopathy, lumbar region (principal); Z79.84 Long term (current) use of oral hypoglycemic drugs
CPT/HCPCS: 36415; 64493; 64494; 82948; J0665

== ENCOUNTER 2024-03-21 07:54 | Outpatient (OUT) | payer MEDICARE, SELFPAY ==
--- NOTE | 2024-03-21 07:55 | CT_ITS ---
[address] [address] Patient Name: ERIC CRAIG MRN: [id number] date: 1960 Sex: M Assigned Patient Location: CT Current Patient Location: Accession/Order Number: [id number] Exam Date: 03/21/2024 08:06 Report Date: 03/23/2024 13:59 At the request of: JEREMY MAGALLANES Procedure: CT chest wo con EXAMINATION: CT chest wo con HISTORY: Chronic obstructive pulmonary disease , epigastric pain, abnormality of esophagus; feels like food is getting stuck in epigastric region COMPARISON: CT abdomen pelvis 06/07/2022 TECHNIQUE: Axial, Coronal, and Sagittal images were created without the administration of IV contrast material. Dose reduction techniques were achieved by using automated exposure control and/or adjustment of mA and/or kV according to patient size and/or use of iterative reconstruction technique. FINDINGS: LUNGS: No visible pulmonary disease. PLEURA: No mass, effusion, or pneumothorax. VASCULATURE: No abnormality. ROMÁN: No mass or pathologic adenopathy. MEDIASTINUM: No mass or pathologic adenopathy. CARDIAC: No enlargement, pericardial thickening, or pericardial effusion. Coronary Artery calcifications: AORTA: No aneurysm or dissection. CHEST WALL: No mass or axillary adenopathy BONES: No bone lesion or fracture. LIMITED ABDOMEN: Air-filled esophagus which may be secondary to gastroesophageal reflux. No appreciable wall thickening to suggest inflammatory changes. Heterogeneous irregular density of the liver; new since prior studies.. Limited images of the upper abdomen. OTHER: Negative. CT/CT chest wo con IMPRESSION: 1. Possible gastroesophageal reflux. Otherwise no acute or specific findings to account for patient's symptoms. 2. Heterogeneous density of the liver which is new since prior studies. Nonspecific but may represent mixed fatty infiltration. If there is clinical concern or abnormal lab values consider CT abdomen with IV contrast utilizing the multiphase liver protocol. Electronically authenticated by: YEISON NAVAS Date: 03/23/2024 13:59
--- OUTSIDE RECORDS SUMMARY | 2024-03-21 07:56 | XMS_ITS | CCD ---
Author Organization [facility] Care Team Providers Care Study Lead Name Role Phone Ronnie Kesha Unavailable Chepe [...] Consulting Unavailable MILLIE, HOSSATimothy Consulting Unavailable HANNAH MAGALALNES Primary Care Physician Edin, Barbie Tellez Referring [...] Reaction(s) Facility (20 sources) Ibuprofen Drug Allergy [facility] Other (20 sources) olodaterol / tiotropium Drug Allergy shortness of breath Keymar Bonanza Other (20 sources) CT Scan dye Propensity to adverse reactions [facility] Other (6 sources) Ibuprofen Drug Allergy 08-19-18 80 [facility] Repository (2 sources) Iodine (And Iodine Containting Drugs) Drug allergy (disorder) 09-07-19 16 [facility] Repository (1 source) NSAIDs Drug allergy (disorder) [facility] (20 sources) fentaNYL Drug Allergy 12-05-19 24 Unknown, [facility] (4 sources) Ibuprofen Drug Allergy 01-15-20 15 [facility] (20 sources) Ofloxacin Drug Allergy 12-05-19 24 Unknown, [facility] (3 sources) zafirlukast Drug Allergy 01-15-20 15 Unknown [facility] Other (20 sources) Zafirlukast *ANTIASTHMATIC AND BRONCHODILATOR AGEN Propensity to adverse reactions Unknown [facility] Other (20 sources) Ibuprofen & Diet Manage Prod *ANALGESICS - ANTI-IN Propensity to adverse reactions Unknown [facility] Other (3 sources) Allergies Reconciled Propensity to adverse reactions Unknown [facility] Other (20 sources) Iodinated contrast media (substance) Drug allergy 06-03-20 19 Rash [facility] Other (3 sources) patient allergy list reviewed by nurse or physicia Propensity to adverse reactions 10-05-19 16 Comment:Done [facility] Other (4 sources) olodaterol Drug Allergy 12-05-19 24 shortness of breath [facility] (4 sources) tiotropium Drug Allergy 12-05-19 shortness of breath [facility] (4 sources) Iodinated Contrast Media Allergy to substance 12-05-19 [facility] (4 sources) Ibuprofen & Diet Manage Prod * Allergy to substance 12-04-19 [facility] (4 sources) Zafirlukast *ANTIASTHMATIC AND Allergy to substance 12-04-19 [facility] Medications Current Medications Medication Drug Class(es) [...] as needed Orally every 6 hrs Active [id number] 200 actuat albuterol 0.09 mg/actuat metered dose [...] 12 hrs for 10 day(s) Oct, Active gabapentin 800 mg oral tablet (1 source) Anti-epileptic Agent Start: 08-31-2023 gabapentin (Neurontin) 800 MG tablet glipiZIDE 5 mg / metFORMIN hydrochloride 500 mg oral tablet (18 sources) Biguanide, Sulfonylurea Start: 12-04-2023 take 2 tablets by mouth twice daily Glipizide-Metformin Active TAB PO December 04, 2023 12:00am [employer] tab Orally bid; Note: Source Status: Start; Refills: 1; Qty: 360 Tablet; Provider: Sona Young ( ) Start: 07-19-2023 take 2 tablets by mo [facility] in the morning glipiZIDE-metFORMIN (Metaglip) 5-500 MG tablet Take 2 tablets by mouth in the morning and 2 tablets before bedtime. 0 07/19/2023 Active take 2 tablets by mo [facility] twice daily glipiZIDE-metFORMIN HCl 5-500 MG 2 tab Orally bid for 90 days Active [facility] glipiZIDE-metFORMIN HCl 5-500 MG 1 [...] days May, Active Start: 2023 HYDROcodone-ac etaminophen ([place]) 10-325 MG tablet Start: 2023 take 1 [...] 30 mg oral tablet (5 sources) Uncompetitive R-tannjf-A-aspartate Receptor Antagonist, Sigma-1 Agonist Start: 05-26-2021 take 1 tablet by mouth every eight hours [place] DMT 30-30 MG 1 tablet Orally every 8 hours for 7 days May, Not-Taking DULoxetine 60 mg delayed release oral capsule (12 sources) Serotonin and Norepinephrine Reuptake Inhibitor Start: 02-19-2024 End: 03-18-2024 take 1 capsule by mouth once daily Duloxetine Discontinued 0 .ROUTE .COMPLEX February 19, 2024 8:39am March 18, 2024 9:00am TAKE 1 CAPSULE BY MOUTH EVERY DAY FOR 90 DAYS Start: 02-19-2024 End: 02-19-2024 take 60 mg by mouth once daily Duloxetine Discontinued 60 MG PO Daily February 19, 2024 12:00am February 19, 2024 8:39am Start: 02-20-2023 take 1 capsule by mo uth every twenty-four hours Cymbalta 60 MG 1 capsule Orally Once a day for 30 days Feb, Active Methylprednisolone (16 sources) Corticosteroid Start: 12-06-2023 End: 12-17-2023 Methylprednisolone Discontin ued 0 PO per package directions December 06, [...] with dinner for 6 days May, Not-Taking Nicotine (Nicoderm Cq) 14 mg/24 hr patch 24 hour (2 sources) Start: 03-03-2024 End: 03-18-2024 apply 1 dose transdermal route once daily, then apply 1 dose transdermal route every twenty-four hours Nicotine (Nicoderm Cq) 14 mg/24 hr patch 24 hour Discontinued 1 PATCH TRANSDERML Daily March 03, 2024 12:00am March 18, 2024 9:00am Start: 03-03-2024 apply 1 dose transde rmal route once daily, then apply 1 dose transdermal route every twenty-four hours Nicotine (Nicoderm Cq) 14 mg/24 hr patch 24 hour Active 1 PATCH TRANSDERML Daily March 03, 2024 12:00am triamcinolone acetonide 40 mg/ml injectable suspension (20 [...] Onset: 9 Chronic Diabetes mellitus without complication (11 sources) Type 2 diabetes mellitus without complications; Translations: [Type 2 diabetes mellitus without complication] Onset: 7 12-05-2023 Chronic Diseases of mouth; excluding dental (2 sources) Abscess of submandibular region; Translations: [Cellulitis and abscess of mouth] 03-04-2024 Episodic Diseases of white blood cells (20 sources) Leukocytosis; Translations: [Other elevated white blood cell count] Chronic Disorders of teeth and jaw (3 sources) Jaw pain; Translations: [Jaw pain] Episodic Esophageal disorders (20 sources) Gastroesophageal reflux disease without esophagitis; Translations: [Gastro-esophageal reflux disease without esophagitis] Chronic Esophageal disorders (2 sources) Disorder of esophagus; Translations: [Disease of esophagus, unspecified] 03-18-2024 Episodic Gastrointestinal hemorrhage (20 sources) Rectal hemorrhage; Translations: [...] right shoulder Episodic Other non-traumatic joint disorders (4 sources) Joint pain; Translations: [Pain in unspecified joint] 12-05-2023 Episodic Other non-traumatic joint disorders (3 sources) Pain in unspecified joint; Translations: [Pain in joint, site unspecified] 12-05-2023 Episodic Other non-traumatic joint disorders (3 sources) Hip pain; Translations: [Pain in right [...] Translations: [Obesity, unspecified] Onset: 8 Chronic Other skin disorders (1 source) Mass of submandibular region; Translations: [Localized swelling, mass and lump, head] 03-18-2024 Episodic Other skin disorders (1 source) Localized swelling, mass and lump, head; Translations: [Swelling, mass, or lump in head and neck] 03-18-2024 Episodic Other upper respiratory disease (20 sources) Chronic [...] Spondylosis; intervertebral disc disorders; other back problems (14 sources) Radiculopathy, lumbar region; Translations: [Dorsalgia, unspecified] [...] control representative (current) drug therapy; Translations: [OTH INTERMEDIATE CURRENT DRUG THERAPY] Onset: 12-29-2021 Episodic Other [...] (Bld) [#/Vol] 0.1 10 3/uL 0.0-0.1 [facility] Basophils/100 WBC Auto (Bld) on 02-27-2024 Basophils/100 WBC (Bld) 0.5 % 0.2-2.0 [facility] Eosinophils/100 WBC Auto (Bl d)on 02-27-2024 Eosinophils/100 WBC (Bld) 2.5 % 0.9-7.0 [facility] Erythrocyte distribution wid th Auto (RBC) [Ratio]on 02-27-2024 Erythrocyte distribution width (RBC) [Ratio] 13.5 % 11.0-15.0 [facility] Estimated glomerular filtrat ion rate (GFR) non- Americanon 02-27-2024 GFR/1.73 sq M.predicted among non-blacks MDRD (S/P/Bld) [Vol rate/Area] mL/min/{1.73_m2} >=60 [facility] Hematocrit Auto (Bld) [Volum e fraction]on 02-27-2024 Hematocrit (Bld) [Volume fraction] 47.1 % 42.0-54.0 [facility] Hemoglobin [Mass/volume] in Bloodon 02-27-2024 Hemoglobin (Bld) [Mass/Vol] 15.5 g/dL 14.0-18.0 [facility] Laboratory - Chemistry and C hemistry - challengeon 02-27-2024 Calcium [Mass/Vol] 8.9 mg/dL 8.5-10.1 [facility] Chloride [Moles/Vol] 98 mmol/L 98-107 [facility] CO2 [Moles/Vol] 28.1 mmol/L 21.0-32.0 [facility] Creatinine [Mass/Vol] 0.86 mg/dL 0.70-1.30 [facility] GFR/1.73 sq M.predicted MDRD (S/P/Bld) [Vol rate/Area] mL/min/{1.73_m2} >=60 [facility] Glucose [Mass/Vol] 237 mg/dL High 74-106 [facility] Lactate [Moles/Vol] 1.3 mmol/L 0.4-2.0 [facility] Potassium [Moles/Vol] 4.4 mmol/L 3.5-5.1 [facility] Sodium [Moles/Vol] 130 mmol/L Low 136-145 [facility] Urea nitrogen [Mass/Vol] 21.0 mg/dL High 7.0-18.0 [facility] Urea nitrogen/Creatinine [Mass ratio] 24.4 mg/mg [facility] Laboratory - Hematology and Cell countson 02-27-2024 Immature granulocytes/100 WBC (Bld) 0.3 % 0.0-0.5 [facility] Leukocytes [#/volume] correc jean claude for nucleated erythrocytes in Blood by Automated counon 02-27-2024 WBC corrected for nucl RBC Auto (Bld) [#/Vol] 9.3 10 3/uL 4.0-11.0 [facility] Lymphocytes Auto (Bld) [#/Vo l]on 02-27-2024 Lymphocytes (Bld) [#/Vol] 2.4 10 3/uL 1.2-3.8 [facility] Lymphocytes/100 WBC Auto (Bl d)on 02-27-2024 Lymphocytes/100 WBC (Bld) 25.5 % 20.5-60.0 [facility] MCH Auto (RBC) [Entitic mass ]on 02-27-2024 MCH (RBC) [Entitic mass] 29.1 pg 25.9-34.0 [facility] MCHC Auto (RBC) [Mass/Vol]on 02-27-2024 MCHC (RBC) [Mass/Vol] 32.9 g/dL 29.9-35.2 [facility] MCV Auto (RBC) [Entitic vol] on 02-27-2024 MCV (RBC) [Entitic vol] 88.5 fL 80.0-94.0 [facility] Monocytes Auto (Bld) [#/Vol] on 02-27-2024 Monocytes (Bld) [#/Vol] 1.1 10 3/uL High 0.3-0.8 [facility] Monocytes/100 WBC Auto (Bld) on 02-27-2024 Monocytes/100 WBC (Bld) 12.0 % 1.7-12.0 [facility] Neutrophils Auto (Bld) [#/Vo l]on 02-27-2024 Neutrophils (Bld) [#/Vol] 5.5 10 3/uL 1.4-6.5 [facility] Neutrophils/100 WBC Auto (Bl d)on 02-27-2024 Neutrophils/100 WBC (Bld) 59.2 % 43.0-75.0 [facility] No Panel Informationon 02-26 Eosinophils # (Auto) 0.2 10 3/uL 0.0-0.7 [facility] Immature Granulocyte # (Auto) 0.03 10 3/uL 0.00-0.03 [facility] Platelet mean volume Auto (B ld) [Entitic vol]on 02-27-2024 Platelet mean volume (Bld) [Entitic vol] 8.8 fL Low 9.5-13.5 [facility] Platelets Auto (Bld) [#/Vol] on 02-27-2024 Platelets (Bld) [#/Vol] 288 10 3/uL 150-450 [facility] RBC Auto (Bld) [#/Vol]on RBC (Bld) [#/Vol] 5.32 10 6/uL 4.70-6.10 [facility] Serum or plasma anion gap de terminationon 02-27-2024 Anion gap [Moles/Vol] 8.3 mmol/L [facility] Basophils Auto (Bld) [#/Vol] on 12-05-2023 Basophils (Bld) [#/Vol] 0.1 10 3/uL 0.0-0.1 [facility] Basophils/100 WBC Auto (Bld) on 12-05-2023 Basophils/100 WBC (Bld) 0.9 % 0.2-2.0 [facility] Eosinophils/100 WBC Auto (Bl d)on 12-05-2023 Eosinophils/100 WBC (Bld) 2.7 % 0.9-7.0 [facility] Erythrocyte distribution wid th Auto (RBC) [Ratio]on 12-05-2023 Erythrocyte distribution width (RBC) [Ratio] 13.1 % 11.0-15.0 [facility] Estimated glomerular filtrat ion rate (GFR) non- Americanon 12-05-2023 GFR/1.73 sq M.predicted among non-blacks MDRD (S/P/Bld) [Vol rate/Area] mL/min/{1.73_m2} >=60 [facility] Glucose mean value [Mass/vol ume] in Blood Estimated from glycated hemoglobinon 12-05-2023 Average glucose Estimated from glycated hemoglobin (Bld) [Mass/Vol] 171 mg/dL [facility] Hematocrit Auto (Bld) [Volum e fraction]on 12-05-2023 Hematocrit (Bld) [Volume fraction] 48.9 % 42.0-54.0 [facility] Hemoglobin [Mass/volume] in Bloodon 12-05-2023 Hemoglobin (Bld) [Mass/Vol] 16.0 g/dL 14.0-18.0 [facility] Laboratory - Chemistry and C hemistry - challengeon 12-05-2023 Calcium [Mass/Vol] 9.7 mg/dL 8.5-10.1 [facility] Chloride [Moles/Vol] 102 mmol/L 98-107 [facility] CO2 [Moles/Vol] 27.6 mmol/L 21.0-32.0 [facility] Creatinine [Mass/Vol] 1.01 mg/dL 0.70-1.30 [facility] GFR/1.73 sq M.predicted MDRD (S/P/Bld) [Vol rate/Area] mL/min/{1.73_m2} >=60 [facility] Glucose [Mass/Vol] 156 mg/dL High 74-106 [facility] Potassium [Moles/Vol] 4.4 mmol/L 3.5-5.1 [facility] Sodium [Moles/Vol] 139 mmol/L 136-145 [facility] Urea nitrogen [Mass/Vol] 13.0 mg/dL 7.0-18.0 [facility] Urea nitrogen/Creatinine [Mass ratio] 12.9 mg/mg [facility] Laboratory - Hematology and Cell countson 12-05-2023 ESR (Bld) [Velocity] 17 mm/h <=20 [facility] HbA1c (Bld) [Mass fraction] 7.6 % High 4.5-6.2 [facility] Comment on above: ADA RECOMMENDED LIMI T 4.0 - 6.0ADA THERAPEUTIC TARGET < 7.0ACTION SUGGESTED> 7.0 Immature granulocytes/100 WBC (Bld) 0.4 % 0.0-0.5 [facility] Leukocytes [#/volume] correc jean claude for nucleated erythrocytes in Blood by Automated counon 12-05-2023 WBC corrected for nucl RBC Auto (Bld) [#/Vol] 7.7 10 3/uL 4.0-11.0 [facility] Lymphocytes Auto (Bld) [#/Vo l]on 12-05-2023 Lymphocytes (Bld) [#/Vol] 2.4 10 3/uL 1.2-3.8 [facility] Lymphocytes/100 WBC Auto (Bl d)on 12-05-2023 Lymphocytes/100 WBC (Bld) 31.2 % 20.5-60.0 [facility] MCH Auto (RBC) [Entitic mass ]on 12-05-2023 MCH (RBC) [Entitic mass] 28.5 pg 25.9-34.0 [facility] MCHC Auto (RBC) [Mass/Vol]on 12-05-2023 MCHC (RBC) [Mass/Vol] 32.7 g/dL 29.9-35.2 [facility] MCV Auto (RBC) [Entitic vol] on 12-05-2023 MCV (RBC) [Entitic vol] 87.0 fL 80.0-94.0 [facility] Monocytes Auto (Bld) [#/Vol] on 12-05-2023 Monocytes (Bld) [#/Vol] 0.7 10 3/uL 0.3-0.8 [facility] Monocytes/100 WBC Auto (Bld) on 12-05-2023 Monocytes/100 WBC (Bld) 9.5 % 1.7-12.0 [facility] Neutrophils Auto (Bld) [#/Vo l]on 12-05-2023 Neutrophils (Bld) [#/Vol] 4.2 10 3/uL 1.4-6.5 [facility] Neutrophils/100 WBC Auto (Bl d)on 12-05-2023 Neutrophils/100 WBC (Bld) 55.3 % 43.0-75.0 [facility] No Panel Informationon 12-04 Eosinophils # (Auto) 0.2 10 3/uL 0.0-0.7 [facility] Immature Granulocyte # (Auto) 0.03 10 3/uL 0.00-0.03 [facility] Platelet mean volume Auto (B ld) [Entitic vol]on 12-05-2023 Platelet mean volume (Bld) [Entitic vol] 8.6 fL Low 9.5-13.5 [facility] Platelets Auto (Bld) [#/Vol] on 12-05-2023 Platelets (Bld) [#/Vol] 330 10 3/uL 150-450 [facility] RBC Auto (Bld) [#/Vol]on RBC (Bld) [#/Vol] 5.62 10 6/uL 4.70-6.10 [facility] Serum or plasma anion gap de terminationon 12-05-2023 Anion gap [Moles/Vol] 13.8 mmol/L [facility] Magnesiumon 07-02-2023 Magnesium [Mass/Vol] 2.3022821 mg/dL Normal 1.8-2.4 mg/dL [facility] Other Magnesium see note [facility] Other [facility] w/o Contrast Right Exam [...] TAMARA Technologist: STELLA Technical Comments None Normal [facility] Consent for Treatmenton 05-19 Consent for Treatment [id number] .[id number] Normal [facility] RAD - MRI Screening Formon 1 RAD - MRI Screening Form [id number]. 00TIFF Normal [facility] Physician Orderon 05-09-2023 Physician Order [id number]# 1.00CD:127 Normal [facility] XR CHEST 2 Von 11-24-2022 XR [...] by: RUBI TAVERAS Date: 2022-11-24 17:[address] [facility] CT LUNG CANCER SCREENINGon 1 [...] YEISON NAVAS Date: 2022-07-20 07:18 Normal [facility] CBC AUTO DIFFon 06-07-2022 BASO # 0.1 103/ul Normal 0.0-0.[address] [facility] Comment on above: Performed By: #### C BC #### [facility] [address] [address] [address] Eran Chacon Basophils/100 WBC (Bld) 0.6 % Normal 0.2-2.[address] [facility] Comment on above: Performed By: #### C BC #### [facility] [address] [address] [address] Eran Chacon EO # 0.3 103/ul Normal 0.0-0.7 [facility] Comment on above: Performed By: #### C BC #### [facility] [address] [address] [address] Eran Chacon Eosinophils/100 WBC (Bld) 3.3 % Normal 0.9-7.0 [facility] Comment on above: Performed By: #### C BC #### [facility] [address] [address] [address] Eran Chacon Erythrocyte distribution width (RBC) [Ratio] 12.9 % Normal 11.0-15.[address] [facility] Comment on above: Performed By: #### C BC #### [facility] [address] [address] [address] Eran Chacon Hematocrit (Bld) [Volume fraction] 47.7 % Normal 42.0-54.[address] [facility] Comment on above: Performed By: #### C BC #### [facility] [address] [place] [address] Dr. Eran Chacon Hemoglobin (Bld) [Mass/Vol] 15.9 g/dL Normal 14.0-18.[address] [facility] Comment on above: Performed By: #### C BC #### [facility] [address] [place] [address] Dr. rEan Chacon IG # 0.02 10e3/ul Normal 0.00-0.[address] [facility] Comment on above: Performed By: #### C BC #### [facility] [address] [place] [address] Dr. Eran Chacon IG % 0.2 % Normal 0.0-0.[address] [facility] Comment on above: Performed By: #### C BC #### [facility] [address] [place] [address] Dr. Eran Chacon LYMPH # 3.4 103/ul Normal 1.2-3.8 [facility] Comment on above: Performed By: #### C BC #### [facility] [address] [place] [address] Dr. Eran Chacon Lymphocytes/100 WBC (Bld) 34.5 % Normal 20.5-60.[address] [facility] Comment on above: Performed By: #### C BC #### [facility] [address] [place] [address] Dr. Eran Chacon MANUAL DIFF REQ NO Normal [facility] Comment on above: Performed By: #### C BC #### [facility] [address] [place] [address] Dr. Eran Chacon MCH (RBC) [Entitic mass] 29.6 pg Normal 25.9-34.0 [facility] Comment on above: Performed By: #### C BC #### [facility] [address] [place] [address] Dr. Eran Chacon MCHC (RBC) [Mass/Vol] 33.3 g/dL Normal 29.9-35.2 [facility] Comment on above: Performed By: #### C BC #### [facility] [address] [address] [address] Eran Chacon MCV (RBC) [Entitic vol] 88.8 fL Normal 80.0-94.[address] [facility] Comment on above: Performed By: #### C BC #### [facility] [address] [address] [address] Eran Chacon MONO # 0.9 103/ul Critically high 0.3-0.[address] [facility] Comment on above: Performed By: #### C BC #### [facility] [address] [address] [address] Eran Chacon Monocytes/100 WBC (Bld) 9.3 % Normal 1.7-12.[address] [facility] Comment on above: Performed By: #### C BC #### [facility] [address] [address] [address] Eran Chacon NEUT # 5.2 103/ul Normal 1.4-6.[address] [facility] Comment on above: Performed By: #### C BC #### [facility] [address] [place] [address] Dr. Eran Chacon Neutrophils/100 WBC (Bld) 52.1 % Normal 43.0-75.[address] [facility] Comment on above: Performed By: #### C BC #### [facility] [address] [place] [address] Dr. Eran Chacon Platelet mean volume (Bld) [Entitic vol] 8.8 fL Critically low 9.5-13.[address] [facility] Comment on above: Performed By: #### C BC #### [facility] [address] [place] [address] Dr. Eran Chacon PLT 287 103/ul Normal 150-450 [facility] Comment on above: Performed By: #### C BC #### [facility] [address] [address] [address] Eran Chacon RBC 5.37 106/ul Normal 4.70-6.10 [facility] Comment on above: Performed By: #### C BC #### [facility] [address] [address] [address] Eran Chacon WBC 9.9 103/ul Normal 4.0-11.[address] [facility] Comment on above: Performed By: #### C BC #### [facility] [address] [place] [address] Dr. Eran SANDOVAL URINE PROFILEon 2 Bilirubin Ql (U) Negative Normal NEGATIVE [facility] Comment on above: Performed By: #### John SHER UMICRO #### [facility] [address] [place] [address] Dr. Eran Chacon Clarity (U) CLEAR Normal CLEAR [facility] Comment on above: Performed By: #### John SHER UMICRO #### [facility] [address] [place] [address] Dr. Eran Chacon Color (U) YELLOW Normal YELLOW [facility] Comment on above: Performed By: #### John SHER UMICRO #### [facility] [address] [place] [address] Dr. Eran GATES A micrscopic examination will be performed if indicated. Normal [facility] Comment on above: Performed By: #### John SHER UMICRO #### [facility] [address] [place] [address] Dr. Eran Chacon Glucose Ql (U) 500 mg/dl Abnormal NEGATIVE [facility] Comment on above: Performed By: #### John SHER UMICRO #### [facility] [address] [place] [address] Dr. rEan Chacon Hemoglobin Ql (U) TRACE-INTACT Abnormal NEGATIVE [facility] Comment on above: Performed By: #### John SHER UMICRO #### [facility] [address] [place] [address] Dr. Eran Chacon Ketones Ql (U) Negative Normal NEGATIVE [facility] Comment on above: Performed By: #### John SHER UMICRO #### [facility] [address] [place] [address] Dr. Eran Chacon LEUKOCYTES Negative Normal NEGATIVE [facility] Comment on above: Performed By: #### E RUR, UMICRO #### [facility] [address] [place] [address] Dr. Eran Chacon Nitrite Ql (U) Negative Normal NEGATIVE [facility] Comment on above: Performed By: #### John SHER, UMICRO #### [facility] [address] [place] [address] Dr. Eran Chacon pH (U) 6.0 [pH] Normal 5-[address] [facility] Comment on above: Performed By: #### John SHER, UMICRO #### [facility] [address] [place] [address] Dr. Eran Chacon SPEC GRAVITY 1.025 Normal 1.005-<=1.025 [facility] Comment on above: Performed By: #### John SHER, UMICRO #### [facility] [address] [place] [address] Dr. Eran Chacon UA PROTEIN Negative Normal NEGATIVE/ TRACE [facility] Comment on above: Performed By: #### John SHER UMICRO #### [facility] [address] [place] [address] Dr. Eran Chacon UR MICRO IND INDICATED Normal [facility] Comment on above: Performed By: #### John SHER UMICRO #### [facility] [address] [place] [address] Dr. Eran Chacon Urobilinogen Qn (U) 0.2 {Aureliano'U}/dL Normal 0.2 - 1. [address] [facility] Comment on above: Performed By: #### John SHER, UMICRO #### [facility] Laboratory [address] [place] [address] Dr. Eran Chacon PROF 14(COMP METB)on 022 Albumin [Mass/Vol] 4.0 g/dL Normal 3.4-5.0 [facility] Comment on above: Performed By: #### C MP #### [facility] [address] [place] [address] Dr. Eran Chacon Albumin/Globulin [Mass ratio] 1.2 {ratio} Normal [facility] Comment on above: Performed By: #### C MP #### [facility] [address] [address] [address] Eran Chacon ALP [Catalytic activity/Vol] 104 U/L Normal 46-[address] [facility] Comment on above: Performed By: #### C MP #### [facility] [address] [address] [address] Eran Chacon ALT [Catalytic activity/Vol] 28 U/L Normal 16-63 [facility] Comment on above: Performed By: #### C MP #### [facility] [address] [address] [address] Eran Chacon Anion gap [Moles/Vol] 7.2 mmol/L Normal [facility] Comment on above: Performed By: #### C MP #### [facility] [address] [address] [address] Erna Chacon AST [Catalytic activity/Vol] 14 U/L Critically low 15-[address] [facility] Comment on above: Performed By: #### C MP #### [facility] [address] [address] [address] Eran Chacon Bilirubin [Mass/Vol] 0.4 mg/dL Normal 0.2-1.[address] [facility] Comment on above: Performed By: #### C MP #### [facility] [address] [address] [address] Eran Chacon Calcium [Mass/Vol] 9.0 mg/dL Normal 8.5-10.1 [facility] Comment on above: Performed By: #### C MP #### [facility] [address] [address] [address] Eran Chacon Chloride [Moles/Vol] 103 mmol/L Normal 98-[address] [facility] Comment on above: Performed By: #### C MP #### [facility] [address] [address] [address] Eran Chacon CO2 [Moles/Vol] 30.0 mmol/L Normal 21.0-32.0 [facility] Comment on above: Performed By: #### C MP #### [facility] [address] [address] [address] Eran Chacon Creatinine [Mass/Vol] 0.85 mg/dL Normal 0.70-1.[address] [facility] Comment on above: Performed By: #### C MP #### [facility] [address] [address] [address] Eran Chacon EGFR-AF PAKISTANI >60 Normal >=60 [facility] Comment on above: Performed By: #### C MP #### [facility] [address] [address] [address] Eran Chacon EGFR-NON AF PAKISTANI >60 Normal >=[address] [facility] Comment on above: Performed By: #### C MP #### [facility] [address] [place] [address] Dr. Eran Chacon Globulin (S) [Mass/Vol] 3.3 g/dL Normal [facility] Comment on above: Performed By: #### C MP #### [facility] [address] [address] [address] Eran Chacon Glucose [Mass/Vol] 165 mg/dL Critically high 74-106 [facility] Comment on above: Performed By: #### C MP #### [facility] [address] [place] [address] Dr. Eran Chacon Potassium [Moles/Vol] 4.2 mmol/L Normal 3.5-5.[address] [facility] Comment on above: Performed By: #### C MP #### [facility] [address] [place] [address] Dr. Eran Chacon Protein [Mass/Vol] 7.3 g/dL Normal 6.4-8.[address] [facility] Comment on above: Performed By: #### C MP #### [facility] [address] [place] [address] Dr. Eran Chacon Sodium [Moles/Vol] 136 mmol/L Normal 136-145 [facility] Comment on above: Performed By: #### C MP #### [facility] [address] [place] [address] Dr. Eran Chacon Urea nitrogen [Mass/Vol] 10.0 mg/dL Normal 7.0-18.[address] [facility] Comment on above: Performed By: #### C MP #### [facility] [address] [place] [address] Dr. Eran Chacon Urea nitrogen/Creatinine [Mass ratio] 11.8 mg/mg Normal [facility] Comment on above: Performed By: #### C MP #### [facility] [address] [place] [address] Dr. Eran Chacon URINE MICROSCOPIC ONLYon BACTERIA NONE SEEN Normal NONE SEEN [facility] Comment on above: Performed By: #### John SHER UMICRO #### [facility] [address] [place] [address] Dr. Eran Chacon Bacteria identified Cx Nom (U) NOT INDICATED Normal [facility] Comment on above: Performed By: #### John SHER UMICRO #### [facility] [address] [place] [address] Dr. Eran Chacon CAST NONE SEEN Normal NONE SEEN [facility] Comment on above: Performed By: #### E RUHoda UMICRO #### [facility] [address] [place] [address] Dr. Eran Chacon Crystals LM Nom (Urine sed) NONE SEEN Normal NONE SEEN [facility] Comment on above: Performed By: #### John SHER UMICRO #### [facility] [address] [place] [address] Dr. Eran Chacon Epithelial cells LM Ql (Urine sed) RARE Normal NONE SEEN /RARE [facility] Comment on above: Performed By: #### E RUR, UMICRO #### [facility] [address] [place] [address] Dr. Eran Chacon MUCOUS NONE SEEN Normal NONE SEEN [facility] Comment on above: Performed By: #### E RUR, UMICRO #### [facility] [address] [place] [address] Dr. Eran Chacon RBC 0-2 Normal 0-2 [facility] Comment on above: Performed By: #### John RUR, UMICRO #### [facility] [address] [address] [address] Eran Chacon WBC 2-5 Abnormal NONE SEEN [facility] Comment on above: Performed By: #### HANNA BATES #### [facility] [address] [place], [place] [address] Dr. Eran Chacon MRI SHOULDER LT WO [...] YEISON NAVAS Date: 2022-02-02 17:09 Normal [facility] XR shoulder LT min 2V*on XR shoulder LT min 2V* [facility] [place] [address] XRay Report Signed Patient: Nicholas Ziegler MR#: [id number] : [id number] Acct:[id number] Age/Sex: 61 / M ADM Date: 01/25/22 [place] [facility]: Type: [facility] Attending Dr: Kesha Trujillo MD Ordering [...] Otilia Nunez M.D.01/25/2022 11:41 AM Dictation Location: [place] [address] Transcribed By: [facility] 01/25/22 1141 Dictated By: Otilia Nunez MD 01/25/22 1139 Signed By: 01/25/22 1141 Normal [facility] Vital Signs Date Time Vital Sign Value Performing Clinician Facility 03-18-2024 08:46-0400 Body height 175.26 cm [facility] 03-18-2024 08:46-0400 Body mass index (BMI) [Ratio] 34.4 kg/m2 [facility] 03-18-2024 08:46-0400 Body weight 105.68 kg [facility] 03-18-2024 08:46-0400 Diastolic blood pressure 80 mm[Hg] [facility] 03-18-2024 08:46-0400 Heart rate 72 /min [facility] 03-18-2024 08:46-0400 Systolic blood pressure 130 mm[Hg] [facility] 03-03-2024 11:54-0400 Body height 175.26 cm [facility] 03-03-2024 11:54-0400 Body mass index (BMI) [Ratio] 34.7 kg/m2 [facility] 03-03-2024 11:54-0400 Body weight 106.59 kg [facility] 03-03-2024 11:54-0400 Diastolic blood pressure 81 mm[Hg] [facility] 03-03-2024 11:54-0400 Heart rate 69 /min [facility] 03-03-2024 11:54-0400 Systolic blood pressure 129 mm[Hg] [facility] 12-17-2023 08:54-0400 Body height 175.26 cm [facility] 12-17-2023 08:54-0400 Body mass index (BMI) [Ratio] 35.2 kg/m2 [facility] 12-17-2023 08:54-0400 Body weight 108.4 kg [facility] 12-17-2023 08:54-0400 Diastolic blood pressure 76 mm[Hg] [facility] 12-17-2023 08:54-0400 Heart rate 76 /min [facility] 12-17-2023 08:54-0400 Systolic blood pressure 154 mm[Hg] [facility] 12-05-2023 08:52-0400 Body height 175.26 cm [facility] 12-05-2023 08:52-0400 Body mass index (BMI) [Ratio] 35 kg/m2 [facility] 12-05-2023 08:52-0400 Body weight 107.67 kg [facility] 12-05-2023 08:52-0400 Diastolic blood pressure 78 mm[Hg] [facility] 12-05-2023 08:52-0400 Heart rate 69 /min [facility] 12-05-2023 08:52-0400 Systolic blood pressure 147 mm[Hg] [facility] 09-13-2023 13:30-0500 Body height 175.26 cm Hannah Magallanes Other [facility] 09-13-2023 13:30-0500 Body mass index (BMI) [Ratio] 33.22 kg/m2 Hannah Magallanes Other [facility] Other 09-13-2023 13:30-0500 Body temperature 98.4 [degF] Hannah Magallanes Other [facility] Other 09-13-2023 13:30-0500 Body weight 102.06 kg Hannah Magallanes Other [facility] Other 09-13-2023 13:30-0500 Body weight 102.05 kg [facility] 09-13-2023 13:30-0500 Diastolic blood pressure 80 mm[Hg] Hannah Magallanes Other [facility] 09-13-2023 13:30-0500 SaO2% (BldA) [Mass fraction] 93 % Hannah Magallanes Other [facility] Other 09-13-2023 13:30-0500 Systolic blood pressure 118 mm[Hg] Hannah Magallanes Other [facility] 08-13-2023 10:30-0500 Body height 175.26 cm Hannah Magallanes Other [facility] Other 08-13-2023 10:30-0500 Body mass index (BMI) [Ratio] 33.9 kg/m2 Hannah Magallanes Other [facility] Other 08-13-2023 10:30-0500 Body weight 104.15 kg Hannah Magallanes Other [facility] Other 08-13-2023 10:30-0500 Diastolic blood pressure 78 mm[Hg] Hannah Magallanes Other [facility] Other 08-13-2023 10:30-0500 Systolic blood pressure 124 mm[Hg] Hannah Magallanes Other [facility] Other 06-25-2023 08:45-0500 Body height 175.26 cm Hannah Magallanes Other [facility] Other 06-25-2023 08:45-0500 Body mass index (BMI) [Ratio] 33.37 kg/m2 Hannah Magallanes Other [facility] Other 06-25-2023 08:45-0500 Body temperature 96.5 [degF] Hannah Magallanes Other [facility] Other 06-25-2023 08:45-0500 Body weight 102.51 kg Hannah Magallanes Other [facility] Other 06-25-2023 08:45-0500 Diastolic blood pressure 85 mm[Hg] Hannah Magallanes Other [facility] Other 06-25-2023 08:45-0500 Systolic blood pressure 149 mm[Hg] Hannah Magallanes Other [facility] Other 05-28-2023 10:45-0400 Body height 175.26 cm Hannah Magallanes Other [facility] Other 05-28-2023 10:45-0400 Body mass index (BMI) [Ratio] 33.52 kg/m2 Hannah Magallanes Other [facility] Other 05-28-2023 10:45-0400 Body weight 102.97 kg Hannah Magallanes Other [facility] Other 05-28-2023 10:45-0400 Diastolic blood pressure 82 mm[Hg] Hannah Magallanes Other [facility] Other 05-28-2023 10:45-0400 Systolic blood pressure 147 mm[Hg] Hannah Magallanes Other [facility] Other 2023 08:45-0400 Body height 175.26 cm Hannah Magallanes Other [facility] Other 2023 08:45-0400 Body mass index (BMI) [Ratio] 33.52 kg/m2 Hannah Magallanes Other [facility] Other 2023 08:45-0400 Body weight 102.97 kg Hannah Magallanes Other [facility] Other 2023 08:45-0400 Diastolic blood pressure 85 mm[Hg] Hannah Magallanes Other [facility] Other 2023 08:45-0400 Systolic blood pressure 156 mm[Hg] Hannah Magallanes Other [facility] Other 04-30-2023 09:45-0400 Body height 175.26 cm Hannah Magallanes Other [facility] Other 04-30-2023 09:45-0400 Body mass index (BMI) [Ratio] 34.32 kg/m2 Hannah Magallanes Other [facility] Other 04-30-2023 09:45-0400 Body temperature 96.2 [degF] Hannah Magallanes Other [facility] Other 04-30-2023 09:45-0400 Body weight 105.42 kg Hannah Magallanes Other [facility] Other 04-30-2023 09:45-0400 Diastolic blood pressure 78 mm[Hg] Hannah Magallanes Other [facility] Other 04-30-2023 09:45-0400 Respiratory rate 16 /min Hannah Magallanes Other [facility] Other 04-30-2023 09:45-0400 Systolic blood pressure 146 mm[Hg] Hannah Magallanes Other [facility] Other 02-20-2023 09:15-0400 Body height 175.26 cm Hannah Magallanes Other [facility] Other 02-20-2023 09:15-0400 Body mass index (BMI) [Ratio] 33.46 kg/m2 Hannah Magallanes Other [facility] Other 02-20-2023 09:15-0400 Body weight 102.79 kg Hannah Magallanes Other [facility] Other 02-20-2023 09:15-0400 Diastolic blood pressure 77 mm[Hg] Hannah Magallanes Other [facility] Other 02-20-2023 09:15-0400 Systolic blood pressure 131 mm[Hg] Hannah Magallanes Other [facility] Other 01-17-2023 08:45-0400 Body height 175.26 cm Hannah Magallanes Other [facility] Other 01-17-2023 08:45-0400 Body mass index (BMI) [Ratio] 33.37 kg/m2 Hannah Magallanes Other [facility] Other 01-17-2023 08:45-0400 Body weight 102.51 kg Hannah Magallanes Other [facility] Other 01-17-2023 08:45-0400 Diastolic blood pressure 79 mm[Hg] Hannah Magallanes Other [facility] Other 01-17-2023 08:45-0400 Systolic blood pressure 128 mm[Hg] Hannah Magallanes Other [facility] Other 11-23-2022 09:30-0400 Body height 175.26 cm Hannah Magallanes Other [facility] Other 11-23-2022 09:30-0400 Body mass index (BMI) [Ratio] 33.96 kg/m2 Hannah Magallanes Other [facility] Other 11-23-2022 09:30-0400 Body weight 104.33 kg Hannah Magallanes Other [facility] Other 11-23-2022 09:30-0400 Diastolic blood pressure 72 mm[Hg] Hannah Magallanes Other [facility] Other 11-23-2022 09:30-0400 Systolic blood pressure 122 mm[Hg] Hannah Magallanes Other [facility] Other 09-04-2022 11:30-0500 Body height 175.26 cm Hannah Magallanes Other [facility] Other 09-04-2022 11:30-0500 Body mass index (BMI) [Ratio] 33.52 kg/m2 Hannah Magallanes Other [facility] Other 09-04-2022 11:30-0500 Body weight 102.97 kg Hannah Magallanes Other [facility] Other 09-04-2022 11:30-0500 Diastolic blood pressure 80 mm[Hg] Hannah Magallanes Other [facility] Other 09-04-2022 11:30-0500 SaO2% (BldA) [Mass fraction] 95 % Hannah Magallanes Other [facility] Other 09-04-2022 11:30-0500 Systolic blood pressure 122 mm[Hg] Hannah Magallanes Other [facility] Other 02-06-2022 12:45-0400 Body height 175.26 cm Kesha Olexa Other [facility] Other 02-06-2022 12:45-0400 Body mass index (BMI) [Ratio] 31.01 kg/m2 Kesha Olexa Other [facility] Other 02-06-2022 12:45-0400 Body weight 95.26 kg Kesha Olexa Other [facility] Other 05-26-2021 13:15-0400 Body height 175.26 cm Harriet Ginty Other [facility] Other 05-26-2021 13:15-0400 Body mass index (BMI) [Ratio] 31.01 kg/m2 Harriet Ginty Other [facility] Other 05-26-2021 13:15-0400 Body temperature 98.3 [degF] Harriet Ginty Other [facility] Other 05-26-2021 13:15-0400 Body weight 95.26 kg Harriet Ginty Other [facility] Other 05-26-2021 13:150400 SaO2% (BldA) [Mass fraction] 96 % Harriet Mo Other [facility] Other Encounters Encounter Date Encounter Type Care Provider Facility Start: 03-18-2024 End: 03-18-2024 ambulatory [facility] Work Phone: Start: 03-18-2024 End: 03-18-2024 Patient encounter procedure [facility] Work Phone: Start: 03-03-2024 End: 03-03-2024 ambulatory [facility] Work Phone: Start: 03-03-2024 End: 03-03-2024 Patient encounter procedure [facility] Work Phone: Start: 02-27-2024 Non-patient / Non-visit [facility] [employer] Work Phone: Start: 02-24-2024 End: 02-24-2024 ambulatory Zac[facility]ike MD [facility]: [facility] Start: 02-03-2024 End: 02-03-2024 ambulatory Zacarias Pike MD Facility: [facility] Start: 01-20-2024 End: 01-20-2024 ambulatory Zacarias Pike MD Facility: [facility] Start: 12-17-2023 End: 12-17-2023 ambulatory [facility] Work Phone: Start: 12-17-2023 End: 12-17-2023 Patient encounter procedure [facility] Work Phone: Start: 12-05-2023 End: 12-05-2023 ambulatory [facility] Work Phone: Start: 12-05-2023 End: 12-05-2023 Patient encounter procedure [facility] Work Phone: Start: 10-23-2023 Non-patient / Non-visit [facility] Work Phone: Start: 10-08-2023 Non-patient / Non-visit [facility] Work Phone: Start: 10-07-2023 End: 10-07-2023 ambulatory BARBIE Tellez POCOS Not Available Start: 09-18-2023 End: 09-18-2023 ambulatory Hannah Sona Other [facility] Other Start: 09-18-2023 Telephone encounter Hannah Sona [facility] Start: 09-13-2023 End: 09-13-2023 ambulatory Hannah Magallanes Other [facility] Other Start: 09-13-2023 Office outpatient vi sit 15 minutes Hannah Magallanes [facility] Start: 09-13-2023 End: 09-13-2023 Patient encounter procedure [facility] Start: 09-11-2023 Telephone encounter Argentina coleman [...] 09-10-2023 End: 09-10-2023 ambulatory Hannah Magallanes Other [facility] Other Start: 09-10-2023 Telephone encounter Hannah Magallanes [facility] Start: 09-06-2023 End: 09-06-2023 ambulatory Hannah Magallanes Other [facility] Other Start: 09-06-2023 Telephone encounter Hannah Magallanes [facility] Start: 09-02-2023 End: 09-02-2023 ambulatory JIN POCOS Not Available Start: 08-20-2023 End: 08-20-2023 ambulatory Hannah Magallanes Other [facility] Other Start: 08-20-2023 Telephone encounter Hannah Magallanes [facility] Start: 08-13-2023 End: 08-13-2023 ambulatory Hannah Magallanes Other [facility] Other Start: 08-13-2023 Office outpatient vi sit 25 minutes Hannah Magallanes [facility] Start: 08-13-2023 Telephone encounter Hannah Magallanes [facility] Start: 08-06-2023 End: 08-06-2023 ambulatory Hannah Magallanes Other [facility] Other Start: 08-06-2023 Telephone encounter Hannah Magallanes [facility] Start: 07-29-2023 End: 07-29-2023 ambulatory JIN POCOS Not Available Start: 07-22-2023 End: 07-22-2023 ambulatory Hannah Magallanes Other [facility] Other Start: 07-22-2023 Telephone encounter Hannah Magallanes [facility] Start: 07-19-2023 End: 07-19-2023 ambulatory Hannah Magallanes Other [facility] Other Start: 07-19-2023 Telephone encounter Hannah Magallanes [facility] Start: 07-18-2023 End: 07-18-2023 ambulatory Hannah Magallanes Other [facility] Other Start: 07-18-2023 Telephone encounter Hannah Magallanes [facility] Start: 07-02-2023 End: 07-02-2023 ambulatory Hannah Magallanes Other [facility] Other Start: 07-02-2023 Office outpatient vi sit 15 minutes Hannah Magallanes [facility] Start: 07-02-2023 Telephone encounter Hannah Magallanes [facility] Start: 06-25-2023 End: 06-25-2023 ambulatory Hannah Magallanes Other [facility] Other Start: 06-25-2023 Office outpatient vi sit 15 minutes Hannah Magallanes [facility] Start: 06-21-2023 End: 06-21-2023 ambulatory Hannah Magallanes Other [facility] Other Start: 06-21-2023 Encounter by edmond owen Hannah Magallanes [facility] Start: 06-20-2023 End: 06-20-2023 ambulatory Hannah Magallanes Other [facility] Other Start: 06-20-2023 Telephone encounter Hannah Magallanes [facility] Start: 06-17-2023 End: 06-17-2023 ambulatory Hannah Magallanes Other [facility] Other Start: 06-17-2023 Telephone encounter Hannah Magallanes [facility] Start: 06-10-2023 End: 06-10-2023 ambulatory Hannah Magallanes Other [facility] Other Start: 06-10-2023 Telephone encounter Hannah Magallanes [facility] Start: 06-03-2023 End: 06-03-2023 ambulatory Hannah Magallanes Other [facility] Other Start: 06-03-2023 Telephone encounter Hannah Magallanes [facility] Start: 05-30-2023 End: 05-31-2023 ambulatory Barbie Tellez Pocos Facility:[facility] Start: 05-30-2023 End: 05-30-2023 Patient encounter procedure Barbie Tellez [facility] Start: 05-28-2023 End: 05-28-2023 ambulatory Hannah Magallanes Other [facility] Other Start: 05-28-2023 Office outpatient vi sit 15 minutes Hannah Magallanes [facility] Start: 2023 End: 2023 ambulatory Hannah Magallanes Other [facility] Other Start: 2023 Office outpatient vi sit 15 minutes Hannah Magallanes [facility] Start: 05-16-2023 End: 05-16-2023 ambulatory Hannah Magallanes Other [facility] Other Start: 05-16-2023 Telephone encounter Hannah Magallanes [facility] Start: 04-30-2023 End: 04-30-2023 ambulatory Hannah Sona Other [facility] Other Start: 04-30-2023 Office outpatient vi sit 15 minutes Hannah Magallanes [facility] Start: 04-26-2023 End: 04-26-2023 ambulatory Hannah Sona Other [facility] Other Start: 04-26-2023 Telephone encounter Hannah Magallanes [facility] Start: 04-23-2023 End: 04-23-2023 ambulatory Hannah Magallanes Other [facility] Other Start: 04-23-2023 Telephone encounter Hannah Sona [facility] Start: 03-25-2023 End: 03-25-2023 ambulatory Hannah Magallanes Other [facility] Other Start: 03-25-2023 Telephone encounter Hannah Magallanes [facility] Start: 03-06-2023 End: 03-06-2023 ambulatory Hannah Sona Other [facility] Other Start: 03-06-2023 Telephone encounter Hannah Sona [facility] Start: 02-20-2023 End: 02-20-2023 ambulatory Hannah Sona Other [facility] Other Start: 02-20-2023 Office outpatient vi sit 25 minutes Hannah Magallanes [facility] Start: 02-05-2023 End: 02-05-2023 ambulatory Hannah Sona Other [facility] Other Start: 02-05-2023 Telephone encounter Hannah Sona [facility] Start: 01-21-2023 End: 01-21-2023 ambulatory Hannah Sona Other [facility] Other Start: 01-21-2023 Telephone encounter Hannahyeyo Magallanes [facility] Start: 01-17-2023 End: 01-17-2023 ambulatory Hannah Sona Other [facility] Other Start: 01-17-2023 Office outpatient vi sit 15 minutes Hannah Sona [facility] Start: 12-24-2022 End: 12-24-2022 ambulatory Hannah Sona Other [facility] Other Start: 12-24-2022 Telephone encounter Hannah Sona [facility] Start: 12-03-2022 End: 12-03-2022 ambulatory Hannah Sona Other [facility] Other Start: 12-03-2022 Telephone encounter Hannah Sona [facility] Start: 11-27-2022 End: 11-27-2022 ambulatory Hannah Sona Other [facility] Other Start: 11-27-2022 Telephone encounter Hannah Sona [facility] Start: 11-26-2022 End: 11-26-2022 ambulatory Hannah Magallanes Other [facility] Other Start: 11-26-2022 Telephone encounter Hannah Magallanes [facility] Start: 11-24-2022 End: 11-25-[address] HANNAH MAGALLANES Facility:[facility] Start: 11-23-2022 End: 11-23-2022 ambulatory Hannah Magallanes Other [facility] Other Start: 11-23-2022 Office outpatient vi sit 15 minutes Hannah Magallanes [facility] Start: 11-05-2022 End: 11-05-2022 ambulatory Hannah Magallanes Other [facility] Other Start: 11-05-2022 Telephone encounter Hannah Magallanes [facility] Start: 10-03-2022 End: 10-03-2022 ambulatory Hannah Magallanes Other [facility] Other Start: 10-03-2022 Telephone encounter Hannah Magallanes [facility] Start: 09-04-2022 End: 09-04-2022 ambulatory Hannah Magallanes Other [facility] Other Start: 09-04-2022 Office outpatient vi sit 25 minutes Hannah Magallanes [facility] Start: 07-26-[address] HANNAH MAGALLANES Facil ity:H1 Start: 07-19-2022 End: 07-20-[address] WILFREDO ENGLE Facility:H1 Start: 06-07-2022 End: 06-07-[address] HANNAH MAGALLANES Facility:H1 Start: 03-15-2022 ambulatory KESHA TRUJILLO Facility:H 1 Start: 02-06-2022 End: 02-06-2022 ambulatory Kesha Trujillo Other [facility] Other Start: 02-06-2022 Office outpatient vi sit 25 minutes Kesha Ronnie [facility] Start: 02-02-2022 End: 02-03-2022 ambulatory KESHA OLEXA Facility:H1 Start: 12-28-2021 End: 12-28-[address] HANNAH MAGALLANES Facility:H1 Start: 12-12-2021 End: 12-13-2021 ambulatory KESHA RONNIE Keymar Bonanza Other Start: 12-12-2021 Office outpatient ne w 30 minutes Kesha Trujillo [facility] Start: 05-26-2021 Office outpatient vi sit 15 minutes Harriet Mo [facility] Procedures Date Procedure Procedure Detail Performing Clinician Start: 12-18-2018 Laboratory test resu lt abnormal Hananh Magallanes Other Start: 05-12-2018 Removal of suture Milagro Magallanes Other Start: 01-08-2017 Screening for malign ant neoplasm of prostate Hannah Magallanes Other Screening for malign ant neoplasm of colon Hannah Magallanes Other Screening for malign ant neoplasm of prostate Hannah Magallanes Other Plan of Treatment Date Care Activity Detail Author Start: 03-18-2024 Patient referral [facility] Work Phone: Start: 10-07-2023 End: 10-07-2023 Patient encounter procedure 10/07/2023 8:00 AM EST Office Visit [facility] [address] [place] [address] Barbie Tapia DO [address] [place] [address] [facility] [address] Chest WO contrast [facility] Patient referral [facility] Work Phone: XR Pelvis and Hip - bilateral Views [facility] Immunizations Immunization Date Immunization Notes Care Provider Fa merlenety 06-02-2018 Influenza, injectabl e, [place] Canine Kidney, preservative free, quadrivalent Argentina Oz PT Work Phone: [facility] 05-17-2017 influenza virus vaccine, split virus (incl. purified surface antigen) Hannah Magallanes Other [facility] Other 05-17-2017 influenza virus vaccine, unspecified formulation [facility] 05-16-2017 influenza, injectabl e, quadrivalent, preservative free Argentina Clinton PT Work Phone: [facility] 06-28-2016 influenza, injectabl e, quadrivalent, preservative free Argentina Clinton PT Work Phone: [facility] 06-28-2016 tetanus and diphther ia toxoids, adsorbed, preservative free, for adult use (5 Lf of tetanus toxoid and 2 Lf of diphtheria toxoid) Hannah Magallanes Other [facility] 05-25-2015 influenza, seasonal, injectable, preservative free Argentina Clinton PT Work Phone: [facility] 05-25-2015 tetanus and diphther ia toxoids, adsorbed, preservative free, for adult use (5 Lf of tetanus toxoid and 2 Lf of diphtheria toxoid) Hannah Magallanes Other [facility] 06-15-1999 pneumococcal conjuga te vaccine, 7 valent Argentina Clinton PT Work Phone: [facility] Payers Date Payer Category Payer Medicaid [id number] 2013 Medicare [id number] 1960 Unknown [id number] 2.16.84 0.1.035260.3.579.2.593 1960 Unknown [id number] 2.16.84 0.1.772646.3.579.2.593 1960 Unknown [id number] 2.16.84 0.1.549392.3.579.2.593 1960 Unknown [id number] 2.16.84 0.1.739893.3.579.2.593 1960 Unknown [id number] 2.16.84 0.1.076022.3.579.2.593 1960 Unknown [id number] 2.16.84 0.1.015857.3.579.2.593 1960 Unknown [id number] 2.16.84 0.1.163051.3.579.2.593 1960 Unknown [id number] 2.16.84 0.1.071750.3.579.2.593 1960 Unknown [id number] 2.16.8 40.1.707425.3.579.2.727 1960 Unknown [id number] 2.16.84 0.1.718907.3.579.2.1259 1960 Unknown [id number] 2.16.84 0.1.325544.3.579.2.1259 1960 Unknown [id number] 2.16.84 0.1.763844.3.579.2.1259 1960 Unknown [id number] 2.16.840 .1.997111.3.579.2.1259 1960 Unknown [id number] 2.16. 840.1.435513.3.579.2.196 1960 Unknown [id number] 2.16. 840.1.715116.3.579.2.196 1960 Unknown [id number] 2.16. 840.1.051978.3.579.2.196 1959 Medicaid [id number] 2. 16.840.1.539354.19 1959 Medicare [id number] 2.1 [id number] Self-pay Self Pay [id number] Social History Date Type Detail Facility Start: 09-02-2023 Sex Assigned At [facility] Tobacco smoking status No Smokin g Status Entered [facility] Start: 03-27-2023 Tobacco smoking status NHIS Smokes tobacco daily [facility] Work Phone: History of tobacco use [facility]igarette [facility] Start: 03-27-2023 End: 09-02-2023 Cigarettes smoked current (pack per day) - Reported 0.5 [facility] Start: 03-27-2023 Tobacco use and exposure Smokeless tobacco non-user [facility] Start: 09-02-2023 Alcohol intake Lifetime non-drinker (finding) [facility] Start: 03-27-2023 Alcohol Comment Caffine- Soda [facility] Start: 1960 Sex Assigned At Male [facility] Start: 08-21-2023 Gender identity Identifies as male gender (finding) [facility] Start: 08-21-2023 Sexual orientation Heterosexual (finding) [facility] Start: 02-06-2017 Tobacco smoking status NMIS Ex-smoker (finding) [facility] Medical Equipment Procedure Code Equipment Code Equipment Original Text Equi pment Identifier Dates Accu-Chek FastClix Lancet - Clinical Notes 05-26-2021 to 10-02-2023 Telephone Encounter - [facility] - 10/02/2023 1:35 PM ESTTelephone Encounter - [facility] - 10/02/2023 1:35 PM EST Note Date & Type Note Facility 10-02-2023 Telephone encounter Note Form atting of this note might be different from the original. No attempts to hear back; closing referral. [facility] 10-02-2023 Miscellaneous Notes Formattin g of this note might be different from the original. No attempts to hear back; closing referral. documented in this encounter [facility] 09-13-2023 Evaluation note Encounter Date Diagnosis Assessment Notes Aug, Chronic obstructive pulmonary disease, unspecified (ICD-10 - J44.9) Finish antibiotics and prednisone as prescribed. Denies pulmonary referral at this time. Hasn't smoked since 09/08 and declines chantix or patches. Aug, Current smoker (ICD-10 - F17.200) [facility] Other 01-23-2024 Evaluation note* Encounter Date Diagnosis Assessment Notes Treatment Notes Treatment Clinical Notes Aug, Lumbar radicular pain (ICD-10 - M54.16) [facility] Other 01-19-2024 Evaluation note* Encounter Date Diagnosis Assessment Notes Treatment Notes Treatment Clinical Notes Aug, Lumbar radicular pain (ICD-10 - M54.16) [facility] Other 12-26-2023 Evaluation note* Encounter Date Diagnosis Assessment Notes Treatment Notes Treatment Clinical Notes Jul, Type 2 diabetes mellitus with hyperglycemia, without long-term current use of insulin (ICD-10 - E11.65) [facility] Other 12-26-2023 Evaluation note* Encounter Date Diagnosis [...] T3s after shoulder pain has improved post-operatively. [facility] Other 12-04-2023 Evaluation note* Encounter Date Diagnosis Assessment Notes Treatment Notes Treatment Clinical Notes Jul, Type 2 diabetes mellitus with hyperglycemia, without long-term current use of insulin (ICD-10 - E11.65) [facility] Other 12-01-2023 Evaluation note* Encounter Date Diagnosis Assessment Notes Treatment Notes Treatment Clinical Notes Jul, Type 2 diabetes mellitus with hyperglycemia, without long-term current use of insulin (ICD-10 - E11.65) [facility] Other 11-30-2023 Evaluation note* Encounter Date Diagnosis Assessment Notes Treatment Notes Treatment Clinical Notes Jun, Labral tear of shoulder, right, subsequent encounter (ICD-10 - S43.431D) [facility] Other 11-14-2023 Evaluation note* Encounter Date Diagnosis [...] pain (ICD-10 - R07.9) r/o cardiac cause [facility] Other 11-07-2023 Evaluation note* Encounter Date Diagnosis [...] to decrease dose and possibly discontinue medication. [facility] Other 11-02-2023 Evaluation note* Encounter Date Diagnosis Assessment Notes Treatment Notes Treatment Clinical Notes Jun, Acute pain of right shoulder (ICD-10 - M25.511) [facility] Other 10-30-2023 Evaluation note* Encounter Date Diagnosis Assessment Notes Treatment Notes Treatment Clinical Notes May, Acute pain of right shoulder (ICD-10 - M25.511) [facility] Other 10-23-2023 Evaluation note* Encounter Date Diagnosis Assessment Notes Treatment Notes Treatment Clinical Notes May, Acute pain of right shoulder (ICD-10 - M25.511) [facility] Other 10-16-2023 Evaluation note* Encounter Date Diagnosis Assessment Notes Treatment Notes Treatment Clinical Notes May, Acute pain of right shoulder (ICD-10 - M25.511) [facility] Other 10-10-2023 Evaluation note* Encounter Date Diagnosis Assessment Notes Treatment Notes Treatment Clinical Notes May, Acute pain of right shoulder (ICD-10 - M25.511) MRI and surgery planning pending. Pt understands this is a controlled substance and to call in 1 week w update on treatment plan. May, Bronchitis (ICD-10 - J40) Finish antibiotic, rest, hydrate Steroids for wheezing. [facility] Other 10-04-2023 Evaluation note* Encounter Date Diagnosis Assessment Notes Treatment Notes Treatment Clinical Notes May, Acute pain of right shoulder (ICD-10 - M25.511) Reviewed [place] and discussed short term plan of increase in pain medication. He is due for a refill of the T3s presently. Stop them, replace w norco. Pt understands weekly prescription and will need to d/c after anticipated surgery. [facility] Other 09-12-2023 Evaluation note* Encounter Date Diagnosis [...] office and the ER visit on 04/26 [facility] Other 07-05-2023 Evaluation note* Encounter Date Diagnosis [...] and will need less prn pain med. [facility] Other 06-01-2023 Evaluation note* Encounter Date Diagnosis [...] left shoulder (ICD-10 - M25.512) as above. [facility] Other 04-17-2023 Evaluation note* Encounter Date Diagnosis Assessment Notes Treatment Notes Treatment Clinical Notes Nov, Bronchitis (ICD-10 - J40) [facility] Other 04-11-2023 Evaluation note* Encounter Date Diagnosis Assessment Notes Treatment Notes Treatment Clinical Notes Nov, Disc degeneration, lumbar (ICD-10 - M51.36) Nov, Lumbar radicular pain (ICD-10 - M54.16) [facility] Other 04-07-2023 Evaluation note* Encounter Date Diagnosis [...] quit smoking. Pt verbalizes understanding and agreement. [facility] Other 02-15-2023 Evaluation note* Encounter Date Diagnosis Assessment Notes Treatment Notes Treatment Clinical Notes Sep, Lumbar radicular pain (ICD-10 - M54.16) [facility] Other 01-17-2023 Evaluation note* Encounter Date Diagnosis [...] is outlined on the test result page. [facility] Other 10-20-2022 NoteIndication: Calculus in kidney. Comparison: [...] JOHN PINTO Date: 2022-06-07 20:07[facility]06-21[facility]20[facility] Evaluation note* Encounter Date Diagnosis [...] of infection, hardware pullout, cuff repair failure, skilled nursing pain and stiffness are well known problems [...] of repair, infection and wound healing delays. [facility] Other 04-26-2022 NotePROCEDURE: XR SHOULDER LT 2V or > COMPARISON: None. HISTORY: Pain of left shoulder joint FINDINGS: BONES:No acute fracture or dislocation. 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 No visible soft tissue swelling. EFFUSION:None visible. OTHER: Negative. IMPRESSION: Mild osteoarthritis Electronically authenticated by: BARBIE MEMBRENO Date: 2021-12-12 15:[address] [place], [place] [id number] Evaluation note* Encounter Date Diagnosis Assessment Notes [...] the injection well with no adverse reaction. 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 Advised patient that [place] contains antihistamine and cough suppressant and to be cautious using other OTC cold medications. Patient to follow up with PCP if symptoms do not improve. Immediate eval if SOB, difficulty breathing, chest pain, dizziness, or other concerning symptoms. Patient verbalizes understanding and is agreeable to treatment plan Keymar Bonanza Other Evaluation + Plan note No data available for this section [facility] noteNo InformationNortSCI-[facility] Other Evaluation note* Diagnosis Onset Date Resolution Status Arthralgia acute Lumbar pain acute Type II diabetes mellitus ac [facility] Work Phone: Evaluation note* Diagnosis Onset Date Resolution Status Arthralgia acute Lumbar pain acute Type II diabetes mellitus ac [place] Bilateral hip pain acute [facility] Work Phone: Evaluation note* Diagnosis Onset Date Resolution Status Arthralgia acute Lumbar pain acute Type II diabetes mellitus ac [place] Bilateral hip pain acute Lumbar pain acute [facility] Work Phone: Evaluation note* Diagnosis Onset Date Resolution Status Submandibular abscess acute Chronic obstructive pulmonary disease, unspecified acute Esophageal abnormality acute Mass of left submandibular region acute [facility] Work Phone: History general Narrative - Reported* Type Description Date Medical History Asthma Medical History skin cancer-lip Surgical History Left lung biopsy 1977 Surgical History L4 and L5 disc fusion 1984 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 Surgical History carpal tunnel release 2017 Surgical History tonsillectomy Hospitalization History 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 Hospitalization History pneumonia [employer] [facility] Other Hospital Discharge instructions No data available for this section [facility] Dis[facility] instructionsAmbulatory Orders* Referral to ENT Time Frame: 03/18/24, Location: None [facility] Work Phone: Progress note No data available for this section [facility] Summary Purpose Family History Relationship Condition Age at Onset Recorded Date/T alayna father Unknown Malignant neoplasm Unknown Not Specified Unknown Relationship Condition Age at Onset Recorded Date/T alayna father Unknown Malignant neoplasm Unknown mother Unknown Advance Directives Advance Directive Response Recorded Date/ Time Advance Directives No January 25 9:53am Reason for Referral Reason *FU 02/27 Epigastr ic pain, gall bladder polyp. Agrees to treatment, except colonoscopy. Last OV and today, labs and US scanned into chart. thanks Diagnosis 1 Epigastric abdominal pain (R10.13) Referral Organization [facility] [employer] Referring Provider First Name Hannah Referring Provider Last Name Sona Referring Provider Specialty [facility] [employer] Referred Organization [facility] Referred Provider Sai Martinez Referred Address ,[place], [place],[address] Referred Provider Specialty Surgery Referral Priority Routine General Notes Es Camilo 11:38:02 AM >received today, attachments made, notes locked, referral faxed Reason 01/28/23 Access Or tho - B shoulder pain L>R - hopes for injections. Diagnosis 1 Pain in right should er (M25.511) Referral Organization [facility] [employer] Referring Provider First Name Hannah Referring Provider Last Name Sona Referring Provider Specialty [facility] [employer] Referred Organization [facility] Referred Provider Barbie Tapia Referred Address ,[place], [place],[address] Referred Provider Specialty Orthopaedic Surgery Referral Priority [...] in right should er (M25.511) Referral Organization [facility] Lisha nelson Referring Provider First Name Hannah Referring Provider Last Name Sona Referring Provider Specialty [facility] Referred Organization [facility] Referred Provider Barbie Tapia Referred Address ,[place], [place],[address] Referred Provider Specialty Orthopaedic Surgery Referral Priority [...] diabetes mellitus Bilateral hip pain Lumbar pain Chief Complaint Jaw pain lip issues Reason for Visit Submandibular absces s Chronic obstructive pulmonary disease, unspecified Esophageal abnormality Mass of left submandibular region Additional Source Comments REASON FOR VISIT (unrecogniz [...] section and content) DATE CREATED AUTHOR 02/10/2022 [facility] DATE CREATED AUTHOR AUTHOR'S ORGANIZ ATION 12/04/2022 [facility] DATE CREATED AUTHOR AUTHOR'S ORGANIZ ATION 06/01/2023 [facility] DATE CREATED AUTHOR AUTHOR'S ORGANIZ ATION 10/07/2023 [facility] DATE CREATED AUTHOR AUTHOR'S ORGANIZ ATION 03/07/2024 [facility] Patient Care team informatio n (unrecognized [...] 2024 End: March 03, 2024 Team Status: Inactive Member Role Status Dates Hannah Magallanes MD Primary Care Provide r, Attending Provider Active Start: March 18, 2024 End: March 18, 2024 Team Status: Active Member Role Status [...] Provider Active Start : October 23, 2023 Study Lead Relationship Specialty Start Date End Date Hannah Magallanes MD [address] [place] [id number] PCP - General Family Medicine 01/23/23 Team Status: Inactive Member Role Status Dates Hannah Magallanes MD Attending Provider Active St art: September 13, 2023 End: September 13, 2023 Team Status: Inactive Member Role Status Dates Hannah Magallanes MD Primary Care Provide r, Attending Provider Active Start: March 18, 2024 End: March 18, 2024 Goals (unrecognized section and content) Goals may [...] BE BASED ON THE PRIMARY CLINICAL RECORDS. [employer] [facility]. provides no warranty or guarantee of the accuracy or completeness of information in this document.
== END 2024-03-21 07:55 | disposition home or self-care (01) ==
LOC: CT 07:54
PROVIDERS: PCP Family Medicine; Visit Provider Family Medicine
DX: J44.9 Chronic obstructive pulmonary disease, unspecified (principal); K22.9 Disease of esophagus, unspecified
CPT/HCPCS: 71250

== ENCOUNTER 2024-04-01 07:58 | Outpatient (OUT) | payer MEDICARE, SELFPAY ==
--- OUTSIDE RECORDS SUMMARY | 2024-04-01 08:08 | XMS_ITS | CCD ---
Author Organization [facility] Care Team Providers Care Veterinary Medicine Scientist Name Role Phone Ronnie Kesha Unavailable Chepe [...] Consulting Unavailable HANNAH MAGALLANES Primary Care Physician [phone] Edin, Barbie Tellez Referring Unavailable Pocsophia, Barbie Tellez Attending Unavailable Pocsophia, Barbie Tellez Admitting Unavailable Hananh Magallanes MD Primary Care Provider POCOS, BARBIE Tellez Attending Unavailable POCOS, BARBIE Tellez Referring Unavailable POCOS, HI Attending Unavailable BARBIE TAPIA Attending Unavailable Giedraitis , Zacarias Miranda Attending Unavailable Giedraitis , Zacarias Miranda Attending Unavailable Giedraitis , Zacarias Miranda Attending Unavailable Giedraitis , Zacarias Miranda Attending Unavailable Allergies Allergy Classification Reported Allergen(s) Allergy Type Date of Onset Reaction(s) Facility (20 sources) Ibuprofen Drug Allergy [facility] Any.DO Other (20 sources) olodaterol / tiotropium Drug Allergy shortness of breath Any.DO Other (20 sources) CT Scan dye Propensity to adverse reactions [facility] Any.DO Other (6 sources) Ibuprofen Drug Allergy 08-19-18 80 [facility] Repository (2 sources) Iodine (And Iodine Containting Drugs) Drug allergy (disorder) 09-07-19 16 [facility] Repository (1 source) NSAIDs Drug allergy (disorder) [facility] Repository (20 sources) fentaNYL Drug Allergy 12-05-19 24 Unknown, [facility] (4 sources) Ibuprofen Drug Allergy 01-15-20 15 [facility] (20 sources) Ofloxacin Drug Allergy 12-05-19 24 Unknown, [facility] (3 sources) zafirlukast Drug Allergy 01-15-20 15 Unknown Any.DO Other (20 sources) Zafirlukast *ANTIASTHMATIC AND BRONCHODILATOR AGEN Propensity to adverse reactions Unknown Any.DO Other (20 sources) Ibuprofen & Diet Manage Prod *ANALGESICS - ANTI-IN Propensity to adverse reactions Unknown Any.DO Other (3 sources) Allergies Reconciled Propensity to adverse reactions Unknown Any.DO Other (20 sources) Iodinated contrast media (substance) Drug allergy 06-03-20 19 Rash Any.DO Other (3 sources) patient allergy list reviewed by nurse or physicia Propensity to adverse reactions 10-05-19 16 Comment:Done Any.DO Other (4 sources) olodaterol Drug Allergy 12-05-19 24 shortness of breath [facility] (4 sources) tiotropium Drug Allergy 12-05-19 24 shortness of breath [facility] (4 sources) Iodinated Contrast Media Allergy to substance 12-05-19 [facility] (4 sources) Ibuprofen & Diet Manage Prod * Allergy to substance 12-04-19 [facility] (4 sources) Zafirlukast *ANTIASTHMATIC AND Allergy to substance 12-04-19 [facility] Medications Current Medications Medication Drug Class(es) Dates [...] Start: 11-27-2022 take 1 tablet by desirae every six hours Acetaminophen-Codeine #3 300-30 MG 1 tablet as needed Orally every 6 hrs for 30 days Nov, Active Start: 10-31-2022 Acetaminophen- Codeine #4 300-60 MG 2 Orally bid prn for 30 days Oct, Active Start: 10-03-2022 Acetaminophen- Codeine #4 300-60 MG 2 Orally bid prn for 30 days Sep, Active take 1 tablet by desirae every six hours Acetaminophen-Codeine #4 300-60 MG 1 tablet as needed Orally every 6 hrs Active [id number] actuat albuterol 0.09 mg/actuat metered dose [...] Start: 07-19-2023 take 2 tablets by mo [facility] in the morning glipiZIDE-metFORMIN (Metaglip) 5-500 MG tablet Take 2 tablets by mouth in the morning and 2 tablets before bedtime. 0 07/19/2023 Active take 2 tablets by mo [facility] twice daily glipiZIDE-metFORMIN HCl 5-500 MG 2 tab Orally bid for 90 days [facility] glipiZIDE-metFORMIN HCl 5-500 MG 1 [...] Start: 11-23-2022 take 2 tablets by mo [facility] every twenty-four hours predniSONE 20 [...] days May, Active Start: 2023 HYDROcodone-ac etaminophen (Manteo) 10-325 MG tablet Start: 2023 take 1 [...] 30 mg oral tablet (5 sources) Uncompetitive E-zaibhm-A-aspartate Receptor Antagonist, Sigma-1 Agonist Start: 05-26-2021 take 1 tablet by mouth every eight hours [place] DMT 30-30 MG 1 tablet Orally every [...] 10-05-2015 Episodic Other aftercare (1 source) Other half-way (current) drug therapy; Translations: [OTH FIBER OPTIC SPLICER CURRENT DRUG THERAPY] Onset: 12-29-2021 Episodic Other [...] Basophils (Bld) [#/Vol] 0.1 10 3/uL 0.0-0.1 [facility] Basophils/100 WBC Auto (Bld) on 02-27-2024 Basophils/100 WBC (Bld) 0.5 % 0.2-2.0 [facility] Eosinophils/100 WBC Auto (Bl d)on 02-27-2024 Eosinophils/100 WBC (Bld) 2.5 % 0.9-7.0 [facility] Erythrocyte distribution wid th Auto (RBC) [Ratio]on 02-27-2024 Erythrocyte distribution width (RBC) [Ratio] 13.5 % 11.0-15.0 [facility] Estimated glomerular filtrat ion rate (GFR) non- Americanon 02-27-2024 GFR/1.73 sq M.predicted among non-blacks MDRD (S/P/Bld) [Vol rate/Area] mL/min/{1.73_m2} >=60 [facility] Hematocrit Auto (Bld) [Volum e fraction]on 02-27-2024 Hematocrit (Bld) [Volume fraction] 47.1 % 42.0-54.0 [facility] Hemoglobin [Mass/volume] in Bloodon 02-27-2024 Hemoglobin (Bld) [Mass/Vol] 15.5 g/dL 14.0-18.0 [facility] Laboratory - Chemistry and C hemistry - challengeon 02-27-2024 Calcium [Mass/Vol] 8.9 mg/dL 8.5-10.1 [facility] Chloride [Moles/Vol] 98 mmol/L 98-107 [facility] CO2 [Moles/Vol] 28.1 mmol/L 21.0-32.0 [facility] Creatinine [Mass/Vol] 0.86 mg/dL 0.70-1.30 [facility] GFR/1.73 sq M.predicted MDRD (S/P/Bld) [Vol rate/Area] mL/min/{1.73_m2} >=60 [facility] Glucose [Mass/Vol] 237 mg/dL High 74-106 [facility] Lactate [Moles/Vol] 1.3 mmol/L 0.4-2.0 [facility] Potassium [Moles/Vol] 4.4 mmol/L 3.5-5.1 [facility] Sodium [Moles/Vol] 130 mmol/L Low 136-145 [facility] Urea nitrogen [Mass/Vol] 21.0 mg/dL High 7.0-18.0 [facility] Urea nitrogen/Creatinine [Mass ratio] 24.4 mg/mg [facility] - Hematology and Cell countson 02-27-2024 Immature granulocytes/100 WBC (Bld) 0.3 % 0.0-0.5 [facility] Leukocytes [#/volume] correc jean claude for nucleated erythrocytes in Blood by Automated counon 02-27-2024 WBC corrected for nucl RBC Auto (Bld) [#/Vol] 9.3 10 3/uL 4.0-11.0 [facility] Lymphocytes Auto (Bld) [#/Vo l]on 02-27-2024 Lymphocytes (Bld) [#/Vol] 2.4 10 3/uL 1.2-3.8 [facility] Lymphocytes/100 WBC Auto (Bl d)on 02-27-2024 Lymphocytes/100 WBC (Bld) 25.5 % 20.5-60.0 [facility] MCH Auto (RBC) [Entitic mass ]on 02-27-2024 MCH (RBC) [Entitic mass] 29.1 pg 25.9-34.0 [facility] MCHC Auto (RBC) [Mass/Vol]on 02-27-2024 MCHC (RBC) [Mass/Vol] 32.9 g/dL 29.9-35.2 [facility] MCV Auto (RBC) [Entitic vol] on 02-27-2024 MCV (RBC) [Entitic vol] 88.5 fL 80.0-94.0 [facility] Monocytes Auto (Bld) [#/Vol] on 02-27-2024 Monocytes (Bld) [#/Vol] 1.1 10 3/uL High 0.3-0.8 [facility] Monocytes/100 WBC Auto (Bld) on 02-27-2024 Monocytes/100 WBC (Bld) 12.0 % 1.7-12.0 [facility] Neutrophils Auto (Bld) [#/Vo l]on 02-27-2024 Neutrophils (Bld) [#/Vol] 5.5 10 3/uL 1.4-6.5 [facility] Neutrophils/100 WBC Auto (Bl d)on 02-27-2024 Neutrophils/100 WBC (Bld) 59.2 % 43.0-75.0 [facility] No Panel Informationon 02-26 Eosinophils # (Auto) 0.2 10 3/uL 0.0-0.7 [facility] Immature Granulocyte # (Auto) 0.03 10 3/uL 0.00-0.03 [facility] Platelet mean volume Auto (B ld) [Entitic vol]on 02-27-2024 Platelet mean volume (Bld) [Entitic vol] 8.8 fL Low 9.5-13.5 [facility] Platelets Auto (Bld) [#/Vol] on 02-27-2024 Platelets (Bld) [#/Vol] 288 10 3/uL 150-450 [facility] RBC Auto (Bld) [#/Vol]on RBC (Bld) [#/Vol] 5.32 10 6/uL 4.70-6.10 [facility] Serum or plasma anion gap de terminationon 02-27-2024 Anion gap [Moles/Vol] 8.3 mmol/L [facility] Basophils Auto (Bld) [#/Vol] on 12-05-2023 Basophils (Bld) [#/Vol] 0.1 10 3/uL 0.0-0.1 [facility] Basophils/100 WBC Auto (Bld) on 12-05-2023 Basophils/100 WBC (Bld) 0.9 % 0.2-2.0 [facility] Eosinophils/100 WBC Auto (Bl d)on 12-05-2023 Eosinophils/100 WBC (Bld) 2.7 % 0.9-7.0 [facility] Erythrocyte distribution wid th Auto (RBC) [Ratio]on 12-05-2023 Erythrocyte distribution width (RBC) [Ratio] 13.1 % 11.0-15.0 [facility] Estimated glomerular filtrat ion rate (GFR) non- Americanon 12-05-2023 GFR/1.73 sq M.predicted among non-blacks MDRD (S/P/Bld) [Vol rate/Area] mL/min/{1.73_m2} >=60 [facility] Glucose mean value [Mass/vol ume] in Blood Estimated from glycated hemoglobinon 12-05-2023 Average glucose Estimated from glycated hemoglobin (Bld) [Mass/Vol] 171 mg/dL [facility] Hematocrit Auto (Bld) [Volum e fraction]on 12-05-2023 Hematocrit (Bld) [Volume fraction] 48.9 % 42.0-54.0 [facility] Hemoglobin [Mass/volume] in Bloodon 12-05-2023 Hemoglobin (Bld) [Mass/Vol] 16.0 g/dL 14.0-18.0 [facility] - Chemistry and C hemistry - challengeon 12-05-2023 Calcium [Mass/Vol] 9.7 mg/dL 8.5-10.1 [facility] Chloride [Moles/Vol] 102 mmol/L 98-107 [facility] CO2 [Moles/Vol] 27.6 mmol/L 21.0-32.0 [facility] Creatinine [Mass/Vol] 1.01 mg/dL 0.70-1.30 [facility] GFR/1.73 sq M.predicted MDRD (S/P/Bld) [Vol rate/Area] mL/min/{1.73_m2} >=60 [facility] Glucose [Mass/Vol] 156 mg/dL High 74-106 [facility] Potassium [Moles/Vol] 4.4 mmol/L 3.5-5.1 [facility] Sodium [Moles/Vol] 139 mmol/L 136-145 [facility] Urea nitrogen [Mass/Vol] 13.0 mg/dL 7.0-18.0 [facility] Urea nitrogen/Creatinine [Mass ratio] 12.9 mg/mg [facility] - Hematology and Cell countson 12-05-2023 ESR (Bld) [Velocity] 17 mm/h <=20 [facility] HbA1c (Bld) [Mass fraction] 7.6 % High 4.5-6.2 [facility] Comment on above: ADA RECOMMENDED LIMI T 4.0 - 6.0ADA THERAPEUTIC TARGET < 7.0ACTION SUGGESTED> 7.0 Immature granulocytes/100 WBC (Bld) 0.4 % 0.0-0.5 [facility] Leukocytes [#/volume] correc jean claude for nucleated erythrocytes in Blood by Automated counon 12-05-2023 WBC corrected for nucl RBC Auto (Bld) [#/Vol] 7.7 10 3/uL 4.0-11.0 [facility] Lymphocytes Auto (Bld) [#/Vo l]on 12-05-2023 Lymphocytes (Bld) [#/Vol] 2.4 10 3/uL 1.2-3.8 [facility] Lymphocytes/100 WBC Auto (Bl d)on 12-05-2023 Lymphocytes/100 WBC (Bld) 31.2 % 20.5-60.0 [facility] MCH Auto (RBC) [Entitic mass ]on 12-05-2023 MCH (RBC) [Entitic mass] 28.5 pg 25.9-34.0 [facility] MCHC Auto (RBC) [Mass/Vol]on 12-05-2023 MCHC (RBC) [Mass/Vol] 32.7 g/dL 29.9-35.2 [facility] MCV Auto (RBC) [Entitic vol] on 12-05-2023 MCV (RBC) [Entitic vol] 87.0 fL 80.0-94.0 [facility] Monocytes Auto (Bld) [#/Vol] on 12-05-2023 Monocytes (Bld) [#/Vol] 0.7 10 3/uL 0.3-0.8 [facility] Monocytes/100 WBC Auto (Bld) on 12-05-2023 Monocytes/100 WBC (Bld) 9.5 % 1.7-12.0 [facility] Neutrophils Auto (Bld) [#/Vo l]on 12-05-2023 Neutrophils (Bld) [#/Vol] 4.2 10 3/uL 1.4-6.5 [facility] Neutrophils/100 WBC Auto (Bl d)on 12-05-2023 Neutrophils/100 WBC (Bld) 55.3 % 43.0-75.0 [facility] No Panel Informationon 12-04 Eosinophils # (Auto) 0.2 10 3/uL 0.0-0.7 [facility] Immature Granulocyte # (Auto) 0.03 10 3/uL 0.00-0.03 [facility] Platelet mean volume Auto (B ld) [Entitic vol]on 04-18-2024 Platelet mean volume (Bld) [Entitic vol] 8.6 fL Low 9.5-13.5 [facility] Platelets Auto (Bld) [#/Vol] on 12-05-2023 Platelets (Bld) [#/Vol] 330 10 3/uL 150-450 [facility] RBC Auto (Bld) [#/Vol]on RBC (Bld) [#/Vol] 5.62 10 6/uL 4.70-6.10 [facility] Serum or plasma anion gap de terminationon 12-05-2023 Anion gap [Moles/Vol] 13.8 mmol/L [facility] Magnesiumon 07-02-2023 Magnesium [Mass/Vol] 2.7246407 mg/dL Normal 1.8-2.4 mg/dL Any.DO Other Magnesium see note Any.DO Other MRI Shoulder w/o Contrast [facility] 05-31-2023 MRI Shoulder w/o Contrast Right [...] STELLA Technical Comments None Normal [facility] Consent for Treatmenton 05-19 Consent for Treatment [id number] .00TIFF Normal [facility] RAD - MRI Screening Formon 1 RAD - MRI Screening Form [id number]. 00TIFF Normal [facility] Physician Orderon 05-09-2023 Physician Order [id number]# 1.00CD:[address] [facility] XR CHEST 2 Von 11-24-2022 XR [...] RUBI TAVERAS Date: 2022-11-24 17:17 [address] [facility] CT LUNG CANCER SCREENINGon 1 [...] YEISON NAVAS Date: 2022-07-20 07:18 Normal [facility] CBC AUTO DIFFon 06-07-2022 BASO # 0.1 103/ul Normal 0.0-0.1 [facility] Comment on above: Performed By: #### C BC #### [facility] [address] [place] [address] Dr. Eran Chacon Basophils/100 WBC (Bld) 0.6 % Normal 0.2-2.0 [facility] Comment on above: Performed By: #### C BC #### [facility] [address] [place] [address] Dr. Eran Chacon EO # 0.3 103/ul Normal 0.0-0.7 [facility] Comment on above: Performed By: #### C BC #### [facility] [address] [place] [address] Dr. Eran Chacon Eosinophils/100 WBC (Bld) 3.3 % Normal 0.9-7.0 [facility] Comment on above: Performed By: #### C BC #### [facility] [address] [place] [address] Dr. Eran Chacon Erythrocyte distribution width (RBC) [Ratio] 12.9 % Normal 11.0-15.0 [facility] Comment on above: Performed By: #### C BC #### [facility] [address] [place] [address] Dr. Eran Chacon Hematocrit (Bld) [Volume fraction] 47.7 % Normal 42.0-54.0 [facility] Comment on above: Performed By: #### C BC #### [facility] [address] [place] [address] Dr. Eran Chacon Hemoglobin (Bld) [Mass/Vol] 15.9 g/dL Normal 14.0-18.0 [facility] Comment on above: Performed By: #### C BC #### [facility] [address] [place] [address] Dr. Eran Chacon IG # 0.02 10e3/ul Normal 0.00-0.03 [facility] Comment on above: Performed By: #### C BC #### [facility] [address] [place] [address] Dr. Eran Chacon IG % 0.2 % Normal 0.0-0.5 [facility] Comment on above: Performed By: #### C BC #### [facility] [address] [place] [address] Dr. Eran Chacon LYMPH # 3.4 103/ul Normal 1.2-3.8 [facility] Comment on above: Performed By: #### C BC #### [facility] [address] [place] [address] Dr. Eran Chacon Lymphocytes/100 WBC (Bld) 34.5 % Normal 20.5-60.0 [facility] Comment on above: Performed By: #### C BC #### [facility] [address] [place] [address] Dr. Eran Chacon MANUAL DIFF REQ NO Normal [facility] Comment on above: Performed By: #### C BC #### [facility] [address] [place] [address] Dr. Eran Chacon MCH (RBC) [Entitic mass] 29.6 pg Normal 25.9-34.0 [facility] Comment on above: Performed By: #### C BC #### [facility] [address] [place] [address] Dr. Eran Chacon MCHC (RBC) [Mass/Vol] 33.3 g/dL Normal 29.9-35.2 [facility] Comment on above: Performed By: #### C BC #### [facility] [address] [address] [address] Eran Chacon MCV (RBC) [Entitic vol] 88.8 fL Normal 80.0-94.0 [facility] Comment on above: Performed By: #### C BC #### [facility] [address] [address] [address] Eran Chacon MONO # 0.9 103/ul Critically high 0.3-0.8 [facility] Comment on above: Performed By: #### C BC #### [facility] [address] [address] [address] Eran Chacon Monocytes/100 WBC (Bld) 9.3 % Normal 1.7-12.0 [facility] Comment on above: Performed By: #### C BC #### [facility] [address] [address] [address] Eran Chacon NEUT # 5.2 103/ul Normal 1.4-6.5 [facility] Comment on above: Performed By: #### C BC #### [facility] [address] [address] [address] Eran Chacon Neutrophils/100 WBC (Bld) 52.1 % Normal 43.0-75.0 [facility] Comment on above: Performed By: #### C BC #### [facility] [address] [address] [address] Eran Chacon Platelet mean volume (Bld) [Entitic vol] 8.8 fL Critically low 9.5-13.5 [facility] Comment on above: Performed By: #### C BC #### [facility] [address] [address] [address] Eran Chacon PLT 287 103/ul Normal 150-450 [facility] Comment on above: Performed By: #### C BC #### [facility] [address] [address] [address] Eran Chacon RBC 5.37 106/ul Normal 4.70-6.10 [facility] Comment on above: Performed By: #### C BC #### [facility] [address] [place] [address] Dr. Eran Chacon WBC 9.9 103/ul Normal 4.0-11.0 [facility] Comment on above: Performed By: #### C BC #### [facility] [address] [place] [address] Dr. Eran Chacon ER URINE PROFILEon 2 Bilirubin Ql (U) Negative Normal NEGATIVE [facility] Comment on above: Performed By: #### BISHNU BATESRO #### [facility] [address] [place] [address] Dr. Eran Chacon Clarity (U) CLEAR Normal CLEAR [facility] Comment on above: Performed By: #### BISHNU BATESRO #### [facility] [address] [place] [address] Dr. Eran Chacon Color (U) YELLOW Normal YELLOW [facility] Comment on above: Performed By: #### BISHNU BATESRO #### [facility] [address] [place] [address] Dr. Eran GATES A micrscopic examination will be performed if indicated. Normal [facility] Comment on above: Performed By: #### BISHNU BATESRO #### [facility] [address] [place] [address] Dr. Eran Chacon Glucose Ql (U) 500 mg/dl Abnormal NEGATIVE [facility] Comment on above: Performed By: #### BISHNU BATESRO #### [facility] [address] [place] [address] Dr. Eran Chacon Hemoglobin Ql (U) TRACE-INTACT Abnormal NEGATIVE [facility] Comment on above: Performed By: #### BISHNU BATESRO #### [facility] [address] [place] [address] Dr. Eran Chacon Ketones Ql (U) Negative Normal NEGATIVE [facility] Comment on above: Performed By: #### BISHNU BATESRO #### [facility] [address] [place] [address] Dr. Eran Chacon LEUKOCYTES Negative Normal NEGATIVE [facility] Comment on above: Performed By: #### John SHER, UMICRO #### [facility] [address] [place] [address] Dr. Eran Chacon Nitrite Ql (U) Negative Normal NEGATIVE [facility] Comment on above: Performed By: #### John SHER, UMICRO #### [facility] [address] [place] [address] Dr. Eran Chacon pH (U) 6.0 [pH] Normal 5-9 [facility] Comment on above: Performed By: #### John SHER UMICRO #### [facility] [address] [place] [address] Dr. Eran Chacon SPEC GRAVITY 1.025 Normal 1.005-<=1.025 [facility] Comment on above: Performed By: #### John SHER, UMICRO #### [facility] [address] [place] [address] Dr. Eran Chacon UA PROTEIN Negative Normal NEGATIVE/ TRACE [facility] Comment on above: Performed By: #### John SHER UMICRO #### [facility] [address] [place] [address] Dr. Eran Chacon UR MICRO IND INDICATED Normal [facility] Comment on above: Performed By: #### John SHER, UMICRO #### [facility] [address] [place] [address] Dr. Eran Chacon Urobilinogen Qn (U) 0.2 {Aureliano'U}/dL Normal 0.2 - 1. 0 [facility] Comment on above: Performed By: #### John SHER UMICRO #### [facility] [address] [place] [address] Dr. Eran Chacon PROF 14(COMP METB)on 022 Albumin [Mass/Vol] 4.0 g/dL Normal 3.4-5.0 [facility] Comment on above: Performed By: #### C MP #### [facility] [address] [place] [address] Dr. Eran Chacon Albumin/Globulin [Mass ratio] 1.2 {ratio} Normal [facility] Comment on above: Performed By: #### C MP #### [facility] [address] [address] [address] Eran Chacon ALP [Catalytic activity/Vol] 104 U/L Normal 46-116 [facility] Comment on above: Performed By: #### C MP #### [facility] [address] [address] [address] Eran Chacon ALT [Catalytic activity/Vol] 28 U/L Normal 16-63 [facility] Comment on above: Performed By: #### C MP #### [facility] [address] [address] [address] Eran Chacon Anion gap [Moles/Vol] 7.2 mmol/L Normal [facility] Comment on above: Performed By: #### C MP #### [facility] [address] [address] [address] Eran Chacon AST [Catalytic activity/Vol] 14 U/L Critically low 15-37 [facility] Comment on above: Performed By: #### C MP #### [facility] [address] [address] [address] Eran Chacon Bilirubin [Mass/Vol] 0.4 mg/dL Normal 0.2-1.0 [facility] Comment on above: Performed By: #### C MP #### [facility] [address] [address] [address] Eran Chacon Calcium [Mass/Vol] 9.0 mg/dL Normal 8.5-10.1 [facility] Comment on above: Performed By: #### C MP #### [facility] [address] [address] [address] Eran Chacon Chloride [Moles/Vol] 103 mmol/L Normal 98-107 [facility] Comment on above: Performed By: #### C MP #### [facility] [address] [address] [address] Eran Chacon CO2 [Moles/Vol] 30.0 mmol/L Normal 21.0-32.0 [facility] Comment on above: Performed By: #### C MP #### [facility] [address] [address] [address] Eran Chacon Creatinine [Mass/Vol] 0.85 mg/dL Normal 0.70-1.30 [facility] Comment on above: Performed By: #### C MP #### [facility] [address] [address] [address] Eran Chacon EGFR-AF ERITREAN >60 Normal >=60 [facility] Comment on above: Performed By: #### C MP #### [facility] [address] [address] [address] Eran Chacon EGFR-NON AF ERITREAN >60 Normal >=60 [facility] Comment on above: Performed By: #### C MP #### [facility] [address] [place] [address] Dr. Eran Chacon Globulin (S) [Mass/Vol] 3.3 g/dL Normal [facility] Comment on above: Performed By: #### C MP #### [facility] [address] [place] [address] Dr. Eran Chacon Glucose [Mass/Vol] 165 mg/dL Critically high 74-106 [facility] Comment on above: Performed By: #### C MP #### [facility] [address] [place] [address] Dr. Eran Chacon Potassium [Moles/Vol] 4.2 mmol/L Normal 3.5-5.1 [facility] Comment on above: Performed By: #### C MP #### [facility] [address] [place] [address] Dr. Eran Chacon Protein [Mass/Vol] 7.3 g/dL Normal 6.4-8.2 [facility] Comment on above: Performed By: #### C MP #### [facility] [address] [place] [address] Dr. Eran Chacon Sodium [Moles/Vol] 136 mmol/L Normal 136-145 [facility] Comment on above: Performed By: #### C MP #### [facility] [address] [place] [address] Dr. Eran Chacon Urea nitrogen [Mass/Vol] 10.0 mg/dL Normal 7.0-18.0 [facility] Comment on above: Performed By: #### C MP #### [facility] [address] [place] [address] Dr. Eran Chacon Urea nitrogen/Creatinine [Mass ratio] 11.8 mg/mg Normal [facility] Comment on above: Performed By: #### C MP #### [facility] [address] [place] [address] Dr. Eran Chacon URINE MICROSCOPIC ONLYon BACTERIA NONE SEEN Normal NONE SEEN [facility] Comment on above: Performed By: #### John SHER UMICRO #### [facility] [address] [place] [address] Dr. Eran Chacon Bacteria identified Cx Nom (U) NOT INDICATED Normal [facility] Comment on above: Performed By: #### John SHER UMICRO #### [facility] [address] [place] [address] Dr. Eran Chacon CAST NONE SEEN Normal NONE SEEN [facility] Comment on above: Performed By: #### John SHER UMICRO #### [facility] [address] [place] [address] Dr. Eran Chacon Crystals LM Nom (Urine sed) NONE SEEN Normal NONE SEEN [facility] Comment on above: Performed By: #### John SHER UMICRO #### [facility] [address] [place] [address] Dr. Eran Chacon Epithelial cells LM Ql (Urine sed) RARE Normal NONE SEEN /RARE [facility] Comment on above: Performed By: #### John SHER UMICRO #### [facility] [address] [place] [address] Dr. Eran Chacon MUCOUS NONE SEEN Normal NONE SEEN [facility] Comment on above: Performed By: #### John SHER UMICRO #### [facility] [address] [place] [address] Dr. Eran Chacon RBC 0-2 Normal 0-2 [facility] Comment on above: Performed By: #### E HANNA SHER #### [facility] [address] [place], [place] [address] Dr. Eran Chacon WBC 2-5 Abnormal NONE SEEN [facility] Comment on above: Performed By: #### E HANNA SHER #### [facility] [address] [place], [place] [address] Dr. Eran Chacon MRI SHOULDER LT WO [...] YEISON NAVAS Date: 2022-02-02 17:09 Normal [facility] XR shoulder LT min 2V*on XR shoulder LT min 2V* [facility] [place] [address] [place] [address] XRay Report Signed Patient: Nicholas Ziegler MR#: [id number] : 1960 Acct:[id number] Age/Sex: 61 / M ADM Date: 01/25/22 Loc: [facility] Room: Type: [facility] Attending Dr: Kesha Trujillo MD Ordering Provider: [...] Otilia Nunez M.D.01/25/2022 11:41 AM Dictation Location: [place] [address] Transcribed By: [facility] 01/25/22 1141 Dictated By: Otilia Nunez MD 01/25/22 1139 Signed By: 01/25/22 1141 Normal [facility] Vital Signs Date Time Vital Sign Value Performing Clinician Facility 03-18-2024 08:46-0400 Body height 175.26 cm [facility] 03-18-2024 08:46-0400 Body mass index (BMI) [Ratio] 34.4 kg/m2 [facility] 03-18-2024 08:46-0400 Body weight 105.68 kg [facility] 03-18-2024 08:46-0400 Diastolic blood pressure 80 mm[Hg] [facility] 03-18-2024 08:46-0400 Heart rate 72 /min [facility] 03-18-2024 08:46-0400 Systolic blood pressure 130 mm[Hg] [facility] 03-03-2024 11:54-0400 Body height 175.26 cm [facility] 03-03-2024 11:54-0400 Body mass index (BMI) [Ratio] 34.7 kg/m2 [facility] 03-03-2024 11:54-0400 Body weight 106.59 kg [facility] 03-03-2024 11:54-0400 Diastolic blood pressure 81 mm[Hg] [facility] 03-03-2024 11:54-0400 Heart rate 69 /min [facility] 03-03-2024 11:54-0400 Systolic blood pressure 129 mm[Hg] [facility] 12-17-2023 08:54-0400 Body height 175.26 cm [facility] 12-17-2023 08:54-0400 Body mass index (BMI) [Ratio] 35.2 kg/m2 [facility] 12-17-2023 08:54-0400 Body weight 108.4 kg [facility] 12-17-2023 08:54-0400 Diastolic blood pressure 76 mm[Hg] [facility] 12-17-2023 08:54-0400 Heart rate 76 /min [facility] 12-17-2023 08:54-0400 Systolic blood pressure 154 mm[Hg] [facility] 12-05-2023 08:52-0400 Body height 175.26 cm [facility] 12-05-2023 08:52-0400 Body mass index (BMI) [Ratio] 35 kg/m2 [facility] 12-05-2023 08:52-0400 Body weight 107.67 kg [facility] 12-05-2023 08:52-0400 Diastolic blood pressure 78 mm[Hg] [facility] 12-05-2023 08:52-0400 Heart rate 69 /min [facility] 12-05-2023 08:52-0400 Systolic blood pressure 147 mm[Hg] [facility] 09-13-2023 13:30-0500 Body height 175.26 cm Hannah Magallanes Other [facility] 09-13-2023 13:30-0500 Body mass index (BMI) [Ratio] 33.22 kg/m2 Hannah Magallanes Other [facility] Other 09-13-2023 13:30-0500 Body temperature 98.4 [degF] Hannah Magallanes Other [facility] [employer] Other 09-13-2023 13:30-0500 Body weight 102.06 kg Hannah Magallanes Other [facility] [employer] Other 09-13-2023 13:30-0500 Body weight 102.05 kg [facility] 09-13-2023 13:30-0500 Diastolic blood pressure 80 mm[Hg] Hannah Magallanes Other [facility] 09-13-2023 13:30-0500 SaO2% (BldA) [Mass fraction] 93 % Hannah Magallanes Other [facility] [employer] Other 09-13-2023 13:30-0500 Systolic blood pressure 118 mm[Hg] Hannah Magallanes Other [facility] 08-13-2023 10:30-0500 Body height 175.26 cm Hannah Magallanes Other [facility] Other 08-13-2023 10:30-0500 Body mass index (BMI) [Ratio] 33.9 kg/m2 Hannah Magallanes Other [facility] Other 08-13-2023 10:30-0500 Body weight 104.15 kg Hannah Magallanes Other [facility] Other 08-13-2023 10:30-0500 Diastolic blood pressure 78 mm[Hg] Hannah Magallanes Other [facility] Other 08-13-2023 10:30-0500 Systolic blood pressure 124 mm[Hg] Hannah Magallanes Other [facility] Other 06-25-2023 08:45-0500 Body height 175.26 cm Hannah Magallanes Other [facility] Other 06-25-2023 08:45-0500 Body mass index (BMI) [Ratio] 33.37 kg/m2 Hannah Magallanes Other [facility] Other 06-25-2023 08:45-0500 Body temperature 96.5 [degF] Hannah Magallanes Other [facility] Other 06-25-2023 08:45-0500 Body weight 102.51 kg Hannah Magallanes Other [facility] Other 06-25-2023 08:45-0500 Diastolic blood pressure 85 mm[Hg] Hannah Magallanes Other [facility] Other 06-25-2023 08:45-0500 Systolic blood pressure 149 mm[Hg] Hannah Magallanes Other [facility] Other 05-28-2023 10:45-0400 Body height 175.26 cm Hannah Magallanes Other [facility] Other 05-28-2023 10:45-0400 Body mass index (BMI) [Ratio] 33.52 kg/m2 Hannah Magallanes Other [facility] Other 05-28-2023 10:45-0400 Body weight 102.97 kg Hannah Magallanes Other [facility] Other 05-28-2023 10:45-0400 Diastolic blood pressure 82 mm[Hg] Hannah Magallanes Other [facility] Other 05-28-2023 10:45-0400 Systolic blood pressure 147 mm[Hg] Hannah Magallanes Other [facility] Other 2023 08:45-0400 Body height 175.26 cm Hannah Magallanes Other [facility] Other 2023 08:45-0400 Body mass index (BMI) [Ratio] 33.52 kg/m2 Hannah Magallanes Other [facility] Other 2023 08:45-0400 Body weight 102.97 kg Hannah Magallanes Other [facility] Other 2023 08:45-0400 Diastolic blood pressure 85 mm[Hg] Hannah Magallanes Other [facility] Other 2023 08:45-0400 Systolic blood pressure 156 mm[Hg] Hannah Magallanes Other [facility] Other 04-30-2023 09:45-0400 Body height 175.26 cm Hannah Magallanes Other [facility] Other 04-30-2023 09:45-0400 Body mass index (BMI) [Ratio] 34.32 kg/m2 Hannah Magallanes Other [facility] Other 04-30-2023 09:45-0400 Body temperature 96.2 [degF] Hannah Magallanes Other [facility] Other 04-30-2023 09:45-0400 Body weight 105.42 kg Hannah Magallanes Other [facility] Other 04-30-2023 09:45-0400 Diastolic blood pressure 78 mm[Hg] Hannah Magallanes Other [facility] Other 04-30-2023 09:45-0400 Respiratory rate 16 /min Hannah Magallanes Other [facility] Other 04-30-2023 09:45-0400 Systolic blood pressure 146 mm[Hg] Hannah Magallanes Other [facility] Other 02-20-2023 09:15-0400 Body height 175.26 cm Hannah Magallanes Other [facility] Other 02-20-2023 09:15-0400 Body mass index (BMI) [Ratio] 33.46 kg/m2 Hannah Magallanes Other [facility] Other 02-20-2023 09:15-0400 Body weight 102.79 kg Hannah Magallanes Other [facility] Other 02-20-2023 09:15-0400 Diastolic blood pressure 77 mm[Hg] Hannah Magallanes Other [facility] Other 02-20-2023 09:15-0400 Systolic blood pressure 131 mm[Hg] Hannah Magallanes Other [facility] Other 01-17-2023 08:45-0400 Body height 175.26 cm Hannah Magallanes Other [facility] Other 01-17-2023 08:45-0400 Body mass index (BMI) [Ratio] 33.37 kg/m2 Hannah Magallanes Other [facility] Other 01-17-2023 08:45-0400 Body weight 102.51 kg Hannah Magallanes Other [facility] Other 01-17-2023 08:45-0400 Diastolic blood pressure 79 mm[Hg] Hannah Magallanes Other [facility] Other 01-17-2023 08:45-0400 Systolic blood pressure 128 mm[Hg] Hannah Magallanes Other [facility] Other 11-23-2022 09:30-0400 Body height 175.26 cm Hannah Magallanes Other [facility] Other 11-23-2022 09:30-0400 Body mass index (BMI) [Ratio] 33.96 kg/m2 Hannah Magallanes Other [facility] Other 11-23-2022 09:30-0400 Body weight 104.33 kg Hannah Magallanes Other [facility] Other 11-23-2022 09:30-0400 Diastolic blood pressure 72 mm[Hg] Hannah Magallanes Other [facility] Other 11-23-2022 09:30-0400 Systolic blood pressure 122 mm[Hg] Hannah Magallanes Other [facility] Other 09-04-2022 11:30-0500 Body height 175.26 cm Hannah Maglalanes Other [facility] Other 09-04-2022 11:30-0500 Body mass index (BMI) [Ratio] 33.52 kg/m2 Hannah Magallanes Other [facility] Other 09-04-2022 11:30-0500 Body weight 102.97 kg Hannah Magallanes Other [facility] Other 09-04-2022 11:30-0500 Diastolic blood pressure 80 mm[Hg] Hannah Magallanes Other [facility] Other 09-04-2022 11:30-0500 SaO2% (BldA) [Mass fraction] 95 % Hannah Magallanes Other [facility] Other 09-04-2022 11:30-0500 Systolic blood pressure 122 mm[Hg] Hannah Magallanes Other [facility] Other 02-06-2022 12:45-0400 Body height 175.26 cm Kesha Olexa Other [facility] Other 02-06-2022 12:45-0400 Body mass index (BMI) [Ratio] 31.01 kg/m2 Kesha Olexa Other [facility] Other 02-06-2022 12:45-0400 Body weight 95.26 kg Kesha Olexa Other [facility] Other 05-26-2021 13:15-0400 Body height 175.26 cm Harriet Ginty Other [facility] Other 05-26-2021 13:15-0400 Body mass index (BMI) [Ratio] 31.01 kg/m2 Harriet Ginty Other [facility] Other 05-26-2021 13:15-0400 Body temperature 98.3 [degF] Harriet Ginty Other [facility] Other 05-26-2021 13:15-0400 Body weight 95.26 kg Harriet Ginty Other [facility] Other 05-26-2021 13:58-3398 SaO2% (BldA) [Mass fraction] 96 % Harriet Mo Other [facility] Other Encounters Encounter Date Encounter Type Care Provider Facility Start: 03-18-2024 End: 03-18-2024 ambulatory [facility] Work Phone: Start: 03-18-2024 End: 03-18-2024 Patient encounter procedure [facility] Work Phone: Start: 03-16-2024 End: 03-16-2024 ambulatory Zacarias Pike MD Facility: [place] Start: 03-03-2024 End: 03-03-2024 ambulatory [facility] Work Phone: Start: 03-03-2024 End: 03-03-2024 Patient encounter procedure [facility] Work Phone: Start: 02-27-2024 Non-patient / Non-visit [facility] Work Phone: Start: 02-24-2024 End: 02-24-2024 ambulatory Zacarias Pike MD Facility:[facility] [place] Start: 02-03-2024 End: 02-03-2024 ambulatory Zacarias Pike MD Facility:[facility] [place] Start: 01-20-2024 End: 01-20-2024 ambulatory Zacarias Pike MD Facility:[facility] [place] Start: 12-17-2023 End: 12-17-2023 ambulatory [facility] Work Phone: Start: 12-17-2023 End: 12-17-2023 Patient encounter procedure [facility] Work Phone: Start: 12-05-2023 End: 12-05-2023 ambulatory [facility] Work Phone: Start: 12-05-2023 End: 12-05-2023 Patient encounter procedure [facility] Work Phone: Start: 10-23-2023 Non-patient / Non-visit [facility] Work Phone: Start: 10-08-2023 Non-patient / Non-visit [facility] Work Phone: Start: 10-07-2023 End: 10-07-2023 ambulatory BARBIE Tellez [facility] Not Available Start: 09-18-2023 End: 09-18-2023 ambulatory Hannah Sona Other [facility] Other Start: 09-18-2023 Telephone encounter Hannah Sona [facility] Start: 09-13-2023 End: 09-13-2023 ambulatory Hannah Sona Other [facility] Other Start: 09-13-2023 Office outpatient vi sit 15 minutes Hannah Sona [facility] Start: 09-13-2023 End: 09-13-2023 Patient encounter procedure [facility] Start: 09-11-2023 Telephone encounter Argentina coleman [...] 09-10-2023 End: 09-10-2023 ambulatory Hannah Magallanes Other [facility] Other Start: 09-10-2023 Telephone encounter Hannah Magallanes [facility] Start: 09-06-2023 End: 09-06-2023 ambulatory Hannah Magallanes Other [facility] Other Start: 09-06-2023 Telephone encounter Hannah Magallanes [facility] Start: 09-02-2023 End: 09-02-2023 ambulatory HI POCOS Not Available Start: 08-20-2023 End: 08-20-2023 ambulatory Hannah Magallanes Other [facility] Other Start: 08-20-2023 Telephone encounter Hannah Magallanes [facility] Start: 08-13-2023 End: 08-13-2023 ambulatory Hannah Magallanes Other [facility] Other Start: 08-13-2023 Office outpatient vi sit 25 minutes Hannah Magallanes [facility] Start: 08-13-2023 Telephone encounter Hannah Magallanes [facility] Start: 08-06-2023 End: 08-06-2023 ambulatory Hannah Magallanes Other [facility] Other Start: 08-06-2023 Telephone encounter Hannah Magallanes [facility] Start: 07-29-2023 End: 07-29-2023 ambulatory HI POCOS Not Available Start: 07-22-2023 End: 07-22-2023 ambulatory Hannah Magallanes Other [facility] Other Start: 07-22-2023 Telephone encounter Hannah Magallanes [facility] Start: 07-19-2023 End: 07-19-2023 ambulatory Hannah Magallanes Other [facility] Other Start: 07-19-2023 Telephone encounter Hannah Magallanes [facility] Start: 07-18-2023 End: 07-18-2023 ambulatory Hannah Magallanes Other [facility] Other Start: 07-18-2023 Telephone encounter Hannah Magallanes [facility] Start: 07-02-2023 End: 07-02-2023 ambulatory Hannah Magallanes Other [facility] Other Start: 07-02-2023 Office outpatient vi sit 15 minutes Hannah Magallanes [facility] Start: 07-02-2023 Telephone encounter Hannah Magallanes [facility] Start: 06-25-2023 End: 06-25-2023 ambulatory Hannah Magallanes Other [facility] Other Start: 06-25-2023 Office outpatient vi sit 15 minutes Hannah Magallanes [facility] Start: 06-21-2023 End: 06-21-2023 ambulatory Hannah Magallanes Other [facility] Other Start: 06-21-2023 Encounter by compute r link Hannah Magallanes [facility] Start: 06-20-2023 End: 06-20-2023 ambulatory Hannah Magallanes Other [facility] Other Start: 06-20-2023 Telephone encounter Hannah Magallanes [facility] Start: 06-17-2023 End: 06-17-2023 ambulatory Hannah Magallanes Other [facility] Other Start: 06-17-2023 Telephone encounter Hannah Magallanes [facility] Start: 06-10-2023 End: 06-10-2023 ambulatory Hannah Magallanes Other [facility] Other Start: 06-10-2023 Telephone encounter Hannah Magallanes [facility] Start: 06-03-2023 End: 06-03-2023 ambulatory Hannah Magallanes Other [facility] Other Start: 06-03-2023 Telephone encounter Hannah Sona [facility] Start: 05-30-2023 End: 05-31-2023 ambulatory Hi Pocos Facility[facility] Start: 05-30-2023 End: 05-30-2023 Patient encounter procedure Barbie Tellez [facility] Start: 05-28-2023 End: 05-28-2023 ambulatory Hannah Magallanes Other [facility] Other Start: 05-28-2023 Office outpatient vi sit 15 minutes Hannah Magallanes [facility] Start: 2023 End: 2023 ambulatory Hannah Magallanes Other [facility] Other Start: 2023 Office outpatient vi sit 15 minutes Hannah Magallanes [facility] Start: 05-16-2023 End: 05-16-2023 ambulatory Hannah Sona Other [facility] Other Start: 05-16-2023 Telephone encounter Hannah Sona [facility] Start: 04-30-2023 End: 04-30-2023 ambulatory Hannah Sona Other [facility] Other Start: 04-30-2023 Office outpatient vi sit 15 minutes Hannah Magallanes [facility] Start: 04-26-2023 End: 04-26-2023 ambulatory Hannah Magallanes Other [facility] Other Start: 04-26-2023 Telephone encounter Hannah Sona [facility] Start: 04-23-2023 End: 04-23-2023 ambulatory Hannah Magallanes Other [facility] Other Start: 04-23-2023 Telephone encounter Hannah Sona [facility] Start: 03-25-2023 End: 03-25-2023 ambulatory Hannah Magallanes Other [facility] Other Start: 03-25-2023 Telephone encounter Hannah Magallanes [facility] Start: 03-06-2023 End: 03-06-2023 ambulatory Hannah Magallanes Other [facility] Other Start: 03-06-2023 Telephone encounter Hannah Magallanes [facility] Start: 02-20-2023 End: 02-20-2023 ambulatory Hannah Magallanes Other [facility] Other Start: 02-20-2023 Office outpatient vi sit 25 minutes Hannah Sona [facility] Start: 02-05-2023 End: 02-05-2023 ambulatory Hannah Magallanes Other [facility] Other Start: 02-05-2023 Telephone encounter Hannah Magallanes [facility] Start: 01-21-2023 End: 01-21-2023 ambulatory Hannah Magallanes Other [facility] Other Start: 01-21-2023 Telephone encounter Hannah Magallanes [facility] [employer] [facility] Start: 01-17-2023 End: 01-17-2023 ambulatory Hannah Magallanes Other [facility] Other Start: 01-17-2023 Office outpatient vi sit 15 minutes Hannah Sona [facility] Start: 12-24-2022 End: 12-24-2022 ambulatory Hannah Magallanes Other [facility] Other Start: 12-24-2022 Telephone encounter Hannah Magallanes [facility] Start: 12-03-2022 End: 12-03-2022 ambulatory Hannah Magallanes Other [facility] Other Start: 12-03-2022 Telephone encounter Hannah Sona [facility] Start: 11-27-2022 End: 11-27-2022 ambulatory Hannah Magallanes Other [facility] Other Start: 11-27-2022 Telephone encounter Hannah Magallanes [facility] Start: 11-26-2022 End: 11-26-2022 ambulatory Hannah Magallanes Other [facility] Other Start: 11-26-2022 Telephone encounter Hannah Magallanes [facility] Start: 11-24-2022 End: 11-25-[address] HANNAH MAGALLANES Facility:[facility] Start: 11-23-2022 End: 11-23-2022 ambulatory Hannah Magallanes Other [facility] Other Start: 11-23-2022 Office outpatient vi sit 15 minutes Hannah Magallanes [facility] Start: 11-05-2022 End: 11-05-2022 ambulatory Hannah Magallanes Other [facility] Other Start: 11-05-2022 Telephone encounter Hannah Magallanes [facility] Start: 10-03-2022 End: 10-03-2022 ambulatory Hannah aMgallanes Other [facility] Other Start: 10-03-2022 Telephone encounter Hannah Magallanes [facility] Start: 09-04-2022 End: 09-04-2022 ambulatory Hannah Magallanes Other [facility] Other Start: 09-04-2022 Office outpatient vi sit 25 minutes Hannah Magallanes [facility] Start: 07-26-[address] HANNAH MAGALLANES Facil ity:[facility] Start: 07-19-2022 End: 07-20-[address] WILFREDO ENGLE Facility:[facility] Start: 06-07-2022 End: 06-07-[address] HANNAH MAGALLANES Facility:[facility] Start: 03-15-2022 ambulatory KESHA TRUJILLO Facility:[facility] Start: 02-06-2022 End: 02-06-2022 ambulatory Kesha Trujillo Other [facility] Other Start: 02-06-2022 Office outpatient vi sit 25 minutes Kesha Olemartin [facility] Start: 02-02-2022 End: 02-03-2022 ambulatory KESHA TRUJILLO Facility:[facility] Start: 12-28-2021 End: 12-28-[address] HANNAH MAGALLANES Facility:[facility] Start: 12-12-2021 End: 12-13-2021 ambulatory KESHA TRUJILLO [facility] [employer] Other Start: 12-12-2021 Office outpatient ne w 30 minutes Kesha Trujillo [facility] [place] Start: 05-26-2021 Office outpatient vi sit 15 [...] Activity Detail Author Start: 03-18-2024 Patient referral [facility] Work Phone: Start: 10-07-2023 End: 10-07-2023 Patient encounter procedure 10/07/2023 8:00 AM EST Office Visit [facility] [address] [place] [address] PocBarbie cortes DO [address] [place] [address] [address] Chest WO contrast [facility] Patient referral [facility] Work Phone: XR Pelvis and Hip - bilateral Views [facility] Immunizations Immunization Date Immunization Notes Care Provider Fa jw 06-02-2018 Influenza, injectabl e, Madin Klyeigh Canine Kidney, preservative free, quadrivalent Argentina Clinton PT Work Phone: [facility] 05-17-2017 influenza virus vaccine, split virus (incl. purified surface antigen) Hannah Magallanes Other [facility] [employer] Other 05-17-2017 influenza virus vaccine, unspecified formulation [facility] 05-16-2017 influenza, injectabl e, quadrivalent, preservative free Argentina Clinton PT Work Phone: [facility] 06-28-2016 influenza, injectabl e, quadrivalent, preservative free Argentina Clinton PT Work Phone: [facility] 06-28-2016 tetanus and diphther ia toxoids, adsorbed, preservative free, for adult use (5 Lf of tetanus toxoid and 2 Lf of diphtheria toxoid) Hannah Magallanes Other [facility] 05-25-2015 influenza, seasonal, injectable, preservative free Argentina Clinton PT Work Phone: [facility] 05-25-2015 tetanus and diphther ia toxoids, adsorbed, preservative free, for adult use (5 Lf of tetanus toxoid and 2 Lf of diphtheria toxoid) Hannah Magallanes Other [facility] 06-15-1999 pneumococcal conjuga te vaccine, 7 valent Argentina Clinton PT Work Phone: [facility] Healthcare Payers Date Payer Category Payer Medicaid [id number] 2013 Medicare [id number] 1960 Unknown [id number] 2.16.84 0.1.822510.3.579.2.593 1960 Unknown [id number] 2.16.84 0.1.137032.3.579.2.593 1960 Unknown [id number] 2.16.84 0.1.962370.3.579.2.593 1960 Unknown [id number] 2.16.84 0.1.985986.3.579.2.593 1960 Unknown [id number] 2.16.84 0.1.787027.3.579.2.593 1960 Unknown [id number] 2.16.84 0.1.311017.3.579.2.593 1960 Unknown [id number] 2.16.84 0.1.204393.3.579.2.593 1960 Unknown [id number] 2.16.84 0.1.677816.3.579.2.593 1960 Unknown [id number] 2.16.8 40.1.496673.3.579.2.727 1960 Unknown [id number] 2.16.84 0.1.425836.3.579.2.1259 1960 Unknown [id number] 2.16.84 0.1.534670.3.579.2.1259 1960 Unknown [id number] 2.16.84 0.1.646302.3.579.2.1259 1960 Unknown [id number] 2.16.840 .1.182476.3.579.2.1259 1960 Unknown [id number] 2.16. 840.1.099035.3.579.2.196 1960 Unknown [id number] 2.16. 840.1.911028.3.579.2.196 1960 Unknown [id number] 2.16. 840.1.289630.3.579.2.196 1960 Unknown [id number] 2.16. 840.1.424563.3.579.2.196 1959 Medicaid [id number] 2. [id number] 1959 Medicare [id number] 2.1 [id number] Self-pay Self Pay [id number] Social History Date Type Detail Facility Start: 09-02-2023 Sex Assigned At [facility] Tobacco smoking status No Smokin g Status Entered [facility] Start: 03-27-2023 Tobacco smoking status NHIS Smokes tobacco daily [facility] Work Phone: History of tobacco use Cigarette Smoker [facility] Start: 03-27-2023 End: 09-02-2023 Cigarettes smoked current (pack per day) - Reported 0.5 [facility] Start: 03-27-2023 Tobacco use and exposure Smokeless tobacco non-user [facility] Start: 09-02-2023 Alcohol intake Lifetime non-drinker (finding) [facility] Start: 03-27-2023 Alcohol Comment Caffine- Soda [facility] Start: 1960 Sex Assigned At Male [facility] Start: 08-21-2023 Gender identity Identifies as male gender (finding) [facility] Start: 08-21-2023 Sexual orientation Heterosexual (finding) [facility] Start: 02-06-2017 Tobacco smoking status NHIS Ex-smoker (finding) [facility] Medical Equipment Procedure Code Equipment Code [...] No attempts to hear back; closing referral. [facility] 10-02-2023 Miscellaneous Notes Formattin g of this note might be different from the original. No attempts to hear back; closing referral. documented in this encounter [facility] 09-13-2023 Evaluation note Encounter Date Diagnosis Assessment Notes Aug, Chronic obstructive pulmonary disease, unspecified (ICD-10 - J44.9) Finish antibiotics and prednisone as prescribed. Denies pulmonary referral at this time. Hasn't smoked since 09/08 and declines chantix or patches. Aug, Current smoker (ICD-10 - F17.200) Any.DO Other 01-23-2024 Evaluation note* Encounter Date Diagnosis Assessment Notes Treatment Notes Treatment Clinical Notes Aug, Lumbar radicular pain (ICD-10 - M54.16) Any.DO Other 01-19-2024 Evaluation note* Encounter Date Diagnosis Assessment Notes Treatment Notes Treatment Clinical Notes Aug, Lumbar radicular pain (ICD-10 - M54.16) Any.DO Other 12-26-2023 Evaluation note* Encounter Date Diagnosis Assessment Notes Treatment Notes Treatment Clinical Notes Jul, Type 2 diabetes mellitus with hyperglycemia, without long-term current use of insulin (ICD-10 - E11.65) Any.DO Other 12-26-2023 Evaluation note* Encounter Date Diagnosis [...] T3s after shoulder pain has improved post-operatively. Any.DO Other 12-04-2023 Evaluation note* Encounter Date Diagnosis Assessment Notes Treatment Notes Treatment Clinical Notes Jul, Type 2 diabetes mellitus with hyperglycemia, without long-term current use of insulin (ICD-10 - E11.65) Any.DO Other 12-01-2023 Evaluation note* Encounter Date Diagnosis Assessment Notes Treatment Notes Treatment Clinical Notes Jul, Type 2 diabetes mellitus with hyperglycemia, without long-term current use of insulin (ICD-10 - E11.65) Any.DO Other 11-30-2023 Evaluation note* Encounter Date Diagnosis Assessment Notes Treatment Notes Treatment Clinical Notes Jun, Labral tear of shoulder, right, subsequent encounter (ICD-10 - S43.431D) Any.DO Other 11-14-2023 Evaluation note* Encounter Date Diagnosis [...] pain (ICD-10 - R07.9) r/o cardiac cause Any.DO Other 11-07-2023 Evaluation note* Encounter Date Diagnosis [...] to decrease dose and possibly discontinue medication. Any.DO Other 11-02-2023 Evaluation note* Encounter Date Diagnosis Assessment Notes Treatment Notes Treatment Clinical Notes Jun, Acute pain of right shoulder (ICD-10 - M25.511) Any.DO Other 10-30-2023 Evaluation note* Encounter Date Diagnosis Assessment Notes Treatment Notes Treatment Clinical Notes May, Acute pain of right shoulder (ICD-10 - M25.511) Any.DO Other 10-23-2023 Evaluation note* Encounter Date Diagnosis Assessment Notes Treatment Notes Treatment Clinical Notes May, Acute pain of right shoulder (ICD-10 - M25.511) Any.DO Other 10-16-2023 Evaluation note* Encounter Date Diagnosis Assessment Notes Treatment Notes Treatment Clinical Notes May, Acute pain of right shoulder (ICD-10 - M25.511) Any.DO Other 10-10-2023 Evaluation note* Encounter Date Diagnosis Assessment Notes Treatment Notes Treatment Clinical Notes May, Acute pain of right shoulder (ICD-10 - M25.511) MRI and surgery planning pending. Pt understands this is a controlled substance and to call in 1 week w update on treatment plan. May, Bronchitis (ICD-10 - J40) Finish antibiotic, rest, hydrate Steroids for wheezing. Any.DO Other 10-04-2023 Evaluation note* Encounter Date Diagnosis Assessment Notes Treatment Notes Treatment Clinical Notes May, Acute pain of right shoulder (ICD-10 - M25.511) Reviewed OARRS and discussed short term plan of increase in pain medication. He is due for a refill of the T3s presently. Stop them, replace w norco. Pt understands weekly prescription and will need to d/c after anticipated surgery. Any.DO Other 09-12-2023 Evaluation note* Encounter Date Diagnosis [...] office and the ER visit on 04/26 Any.DO Other 07-05-2023 Evaluation note* Encounter Date Diagnosis [...] and will need less prn pain med. Any.DO Other 06-01-2023 Evaluation note* Encounter Date Diagnosis [...] left shoulder (ICD-10 - M25.512) as above. Any.DO Other 04-17-2023 Evaluation note* Encounter Date Diagnosis Assessment Notes Treatment Notes Treatment Clinical Notes Nov, Bronchitis (ICD-10 - J40) Any.DO Other 04-11-2023 Evaluation note* Encounter Date Diagnosis Assessment Notes Treatment Notes Treatment Clinical Notes Nov, Disc degeneration, lumbar (ICD-10 - M51.36) Nov, Lumbar radicular pain (ICD-10 - M54.16) Any.DO Other 04-07-2023 Evaluation note* Encounter Date Diagnosis [...] quit smoking. Pt verbalizes understanding and agreement. Any.DO Other 02-15-2023 Evaluation note* Encounter Date Diagnosis Assessment Notes Treatment Notes Treatment Clinical Notes Sep, Lumbar radicular pain (ICD-10 - M54.16) Any.DO Other 01-17-2023 Evaluation note* Encounter Date Diagnosis [...] is outlined on the test result page. Any.DO Other 10-20-2022 NoteIndication: Calculus in kidney. Comparison: [...] authenticated by: JOHN PINTO Date: 2022-06-07 20:07[facility]06-21-[facility] Evaluation note* Encounter Date Diagnosis [...] of infection, hardware pullout, cuff repair failure, half-way pain and stiffness are well known problems [...] of repair, infection and wound healing delays. Any.DO Other 04-26-2022 NotePROCEDURE: XR SHOULDER LT 2V or > COMPARISON: None. HISTORY: Pain of left shoulder joint FINDINGS: BONES:No acute fracture or dislocation. 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 No visible soft tissue swelling. EFFUSION:None visible. OTHER: Negative. IMPRESSION: Mild osteoarthritis Electronically authenticated by: BARBIE MEMBRENO Date: [facility]-12-12 [facility] Encounter Date Diagnosis Assessment [...] pain of left shoulder (ICD-10 - M25.512) Any.DO Other 10-08-2021 Evaluation note* Encounter Date Diagnosis [...] as needed for cough. Advised patient that [place] contains antihistamine and cough suppressant and to be cautious using other OTC cold medications. Patient to follow up with PCP if symptoms do not improve. Immediate eval if SOB, difficulty breathing, chest pain, dizziness, or other concerning symptoms. Patient verbalizes understanding and is agreeable to treatment plan Any.DO Other Evaluation + Plan note No data available for this section [facility] noteNo InformationNortWellSpan [facility] [employer] Other Evaluation note* Diagnosis Onset Date Resolution Status Arthralgia acute Lumbar pain acute Type II diabetes mellitus ac [facility] Work Phone: Evaluation note* Diagnosis Onset Date Resolution Status Arthralgia acute Lumbar pain acute Type II diabetes mellitus ac [place] Bilateral hip pain [facility] Work Phone: Evaluation note* Diagnosis Onset Date Resolution Status Arthralgia acute Lumbar pain acute Type II diabetes mellitus ac [place] Bilateral hip pain acute Lumbar pain [facility] Work Phone: Evaluation note* Diagnosis Onset Date Resolution Status Submandibular abscess acute Chronic obstructive pulmonary disease, unspecified acute Esophageal abnormality acute Mass of left submandibular region acute [facility] Work Phone: History general Narrative - Reported* Type Description Date Medical History Asthma Medical History skin cancer-lip Surgical History Left lung biopsy 1977 Surgical History L4 and L5 disc fusion 1984 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 Surgical History carpal tunnel release 2016 Surgical History tonsillectomy Hospitalization History 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 Hospitalization History pneumonia Any.DO Other Hospital Discharge instructions No data available for this section [facility] instructionsAmbulatory Orders* Referral to ENT Time Frame: 03/18/24, Location: None Selected [facility] Work Phone: Progress note No data available for this section [facility] Summary Purpose Family History No [...] 1 Epigastric abdominal pain (R10.13) Referral Organization [facility] [employer] Referring Provider First Name Hannah Referring Provider Last Name Sona Referring Provider Specialty [employer] Referred Organization [facility] Referred Provider Sai Martinez Referred Address ,[place], [place],[address] Referred Provider Specialty Surgery Referral Priority Routine General Notes Es Camilo 11:38:02 AM >received today, attachments made, notes locked, referral faxed Reason 01/28/23 Access Or tho - B shoulder pain L>R - hopes for injections. Diagnosis 1 Pain in right should er (M25.511) Referral Organization [facility] [employer] Referring Provider First Name Hannah Referring Provider Last Name Sona Referring Provider Specialty [employer] Referred Organization [facility] Referred Provider Barbie Tapia Referred Address ,[place], [place],[address] Referred Provider Specialty Orthopaedic Surgery Referral Priority Routine Referral Appointment Date 2023-01-28 General Notes RazafaithAbel burtya 03:00:30 PM >received today, notes note locked, will fax when done Es Camilo 01/21/2023 10:35:11 AM >sent TE to have notes locked RazafaithjavedEs 01/22/2023 09:35:27 AM >notes locked, and faxed Es Camilo 01/29/2023 10:49:42 AM >faxed first attempt letter Razaalex Es 02/05/2023 10:30:41 AM >faxed second attempt letter Es Camilo 02/12/2023 11:00:18 AM >faxed third attempt letter Es Camilo 02/13/2023 12:11:31 PM >received fax with appt date, faxed first letter for notes Leslee Es 02/15/2023 04:23:26 PM >notes received, and sent for review. closing out referral Reason [facility] - B shoulder pain L>R - hopes for injections. Diagnosis 1 Pain in right should er (M25.511) Referral Organization [facility] Referring Provider First Name Hannah Referring Provider Last Name Sona Referring Provider Specialty [facility] Referred Organization [facility] Referred Provider Barbie Tapia Referred Address ,[place], [place],[address] Referred Provider Specialty Orthopaedic Surgery Referral Priority [...] section and content) DATE CREATED AUTHOR 02/10/2022 [facility] DATE CREATED AUTHOR AUTHOR'S ORGANIZ ATION 12/04/2022 [facility] DATE CREATED AUTHOR AUTHOR'S ORGANIZ ATION 06/01/2023 [facility] DATE CREATED AUTHOR AUTHOR'S ORGANIZ ATION 10/07/2023 [facility] DATE CREATED AUTHOR AUTHOR'S ORGANIZ ATION 03/31/2024 [facility] Patient Care team informatio n (unrecognized [...] 2024 End: March 18, 2024 Team Status: Inactive Member Role Status [...] Provider Active Start : October 23, 2023 Veterinary Medicine Scientist Relationship Specialty Start Date End Date Hannah Magallanes MD [address] [place] [id number] PCP - General Family Medicine 01/23/23 Team [...] BE BASED ON THE PRIMARY CLINICAL RECORDS. [employer] provides no warranty or guarantee of the accuracy or completeness of information in this document.
--- NOTE | 2024-04-01 08:26 | P.CN_ITS ---
Consult Note: HPI Data of Consult Patient: known to practice within the last 3 years Consult date: 12/26/23 Requesting Physician: Janneth Villalta NP Primary Care Provider: Hannah Gallo MD Consult Narrative Reason for consult: f/u Narrative: Nicholas Ziegler a pleasant 63 year old male with an extensive history of chronic low back pain post lumbar surgery in 1984, left l4 hemilaminectomy according to MRI. Patient also has a significant history of bilateral hip and groin pain. Patient rating low back and bilateral hip pain 5/10 sharp ache, increasing to 10/10 with twisting pushing pulling standing too long transitioning walking activity stairs, pain improved slightly when lying in recliner. Patient has failed to benefit from tylenol, allergy to NSAIDs, failed oxycodone- acetaminophen 5-325mgs, hydrocodone-acetaminophen 10mgs, tylenol #3 1-2 tabs TID, gabapentin unknown dosage. . Patient has failed to benefit from PT and HEP greater than 6 weeks, increases his pain. Previously a patient at [facility] receiving epidurals q2 months for 7 years per patient, last MAGAN 07/11 with benefit. Most recently underwent bilateral L4-5 L5-S1 facet medial branch block #1 and #2 with significant functional improvement and pain relief immediately following and hours after. Currently tolerating tylenol #3 TID PRN and tizanidine 4-8mg PRN well without side effects. cc:: CC: Janneth Villalta NP Review of Systems ROS Status of ROS 10 or more systems reviewed and unremark able except as noted in history and below Musculoskeletal Reports: back pain PFSH PFS Medical History (Updated 02/28/24 @ 02:19 by Arnoldo Somers MD) Tobacco user ?Z72.0 - Tobacco use (ICD-10) Type 2 diabetes mellitus with hyperglycemia ?E11.65 - Type 2 diabetes mellitus with hyperglycemia (ICD-10) Acute exacerbation of chronic obstructive pulmonary disease (COPD) ?J44.1 - Chronic obstructive pulmonary disease with (acute) exacerbation (ICD-10) Lumbar degenerative disc disease ?M51.36 - Other intervertebral disc degeneration, lumbar region (ICD-10) Influenza ?J11.1 - Influenza due to unidentified influenza virus with other respiratory manifestations (ICD-10) Acute bronchospasm ?J98.01 - Acute bronchospasm (ICD-10) Postoperative pain, acute, shoulder ?G89.18 - Other acute postprocedural pain (ICD-10) ?M25.519 - Pain in unspecified shoulder (ICD-10) Fever ?R50.9 - Fever, unspecified (ICD-10) Acute pain of right shoulder ?M25.511 - Pain in right shoulder (ICD-10) Rotator cuff arthropathy of right shoulder ?M12.811 - Other specific arthropathies, not elsewhere classified, right shoulder (ICD-10) Diabetes ?E11.9 - Type 2 diabetes mellitus without complications (ICD-10) COPD (chronic obstructive pulmonary disease) ?J44.9 - Chronic obstructive pulmonary disease, unspecified (ICD-10) Surgical History S/P right rotator cuff repair ?Z98.890 - Other specified postprocedural states (ICD-10) Social History Within the past year, how often did you have a drink containing alcohol: never Score interpretation: A score less than 4 is consistent with normal alcohol consumption. 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 (MD, SARABJIT, DVM, DDS) Are you now , , , , never or living with a partner: In a typical week, how many times do you talk on the telephone with family, friends, or neighbors: 3 or more times per week How often do you get together with friends or relatives: 3 or more times per week How often do you attend hoahaoism or roman catholic services: never Do you belong to any clubs or organizations such as hoahaoism groups unions, fraternal or athletic groups, or school groups: no Total score: 2 Score interpretation: A score of greater than or equal to 2 indicates the lowest level of social isolation. Little interest or pleasure in doing things: not at all Feeling down, depressed, or hopeless: not at all Feel stressed/tense/nervous/anxious/difficulty sleeping: not at all Do you think of yourself as: straight/heterosexual Gender Identity: male Meds Home Medications and Allergies Home Medications ?Medication ?Instructions ?Recorded ?Confirmed ?Type glipizide 5 mg-metformin 500 mg 1 tab PO DAILY 08/23/23 03/16/24 History tablet lancets (Accu-Chek Fastclix Lancet 09/08/23 09/08/23 History Drum) acetaminophen 300 mg-codeine 30 mg 2 tab PO TID PRN pain #180 tabs 01/02/24 03/16/24 Rx tablet naloxone 4 mg/actuation nasal 4 mg intranasal Q3M PRN opioid 01/02/24 03/16/24 Rx spray (Narcan) overdose #2 ea tizanidine 4 mg capsule 4 mg PO BID PRN muscle spasticity 02/24/24 03/16/24 History acetaminophen 300 mg-codeine 30 mg 2 tab PO TID PRN pain #180 tabs 03/06/24 03/16/24 Rx tablet Allergies Allergy/AdvReac Type Severity Reaction Status Date / Time fentanyl Allergy Intermediate Hives Verified 02/24/24 08:43 ofloxacin Allergy Intermediate HIVES Verified 02/24/24 08:43 olodaterol Allergy Intermediate SHORTNESS Verified 02/24/24 08:43 [From Stiolto Respimat] OF BREATH tiotropium Allergy Intermediate SHORTNESS Verified 02/24/24 08:43 [From Stiolto Respimat] OF BREATH zafirlukast Allergy Intermediate Hives Verified 02/24/24 08:43 ibuprofen [From Motrin] AdvReac Mild Hives Verified 02/24/24 08:43 Exam Constitutional Documenting provider has reviewed patient's vital signs: yes Common normals: no apparent distress, oriented x3, healthy appearing, alert and well nourished General appearance: cooperative HENNC Common normals: normocephalic, hearing grossly normal bilaterally and moist oral mucous membranes Head and scalp: normocephalic Eye Common normals: PERRL Pupil: PERRL Neck & C-Spine Common normals: full ROM General: normal visual inspection Chest Common normals: inspection of chest normal Respiratory Common normals: normal respiratory effort, no retractions and no use of accessory muscles Back & Pelvis Lumbar spine/lower back: ROM limited, pain with ROM, lumbar spinal tenderness and straight leg raise negative bilaterally Sacroiliac joints: SI joint(s) abnormal Other: right positive hailee(patricks), gaenslens, thigh thrust, compression test sensation in bilateral LE intact, strength 5/5 BLE positive facet loading Extremity Common normals: normal to inspection and full ROM Right lower extremity: hip joint Left lower extremity: hip joint Other: significant increase in hip/groin pain with internal and external rotation of bilateral hips, right greater than left Neuro Common normals: oriented x3, CN's II-XII intact bilaterally, moves all extremities, no focal motor deficits, no sensory deficits noted and deep tendon reflexes 2+ bilaterally Sensorium/orientation: alert Gait (neuro): antalgic Motor exam: strength 5/5 throughout and no movement abnormalities noted Psych Common normals: mental status grossly normal, thought process normal, cooperative, affect normal, speech normal and activity/motor behavior normal Speech: normal speech Thought process: normal thought process Results Additional Findings Additional findings: If on a controlled substance or opioids, I have checked an OARRS report on this patient and there are no aberrancies noted in the prescribing history.??If on a controlled substance or opioid a drug screen was completed and reviewed within the last year, and if there has not been a drug screen completed we ordered one today to monitor higher risk, state monitored pain medication use. As part of providing excellent, safe, comprehensive care, the following was completed at our patient's visit: 1. A medication reconciliation and review to ensure accurate knowledge of current/active medications, including asking our patients to inform us about any [id number] medications or herbal remedies/nutritional supplements/alternative remedies. 2. A review to specifically ensure our patients have had annual screening for screening for depression, screening for tobacco use, and screening for unhealthy alcohol use. For concerning screenings had a discussion with the patient, provided patient education, and recommended follow-up with primary care provider when appropriate. If patient noted with a risk of falling, they received education on strength, gait, and balance training to prevent future risk of falling. Assessment and Plan Assessment and Plan (1) Lumbar spondylosis: (2) Lumbar stenosis with neurogenic claudication: (3) Sacroiliitis: (4) Bilateral primary osteoarthritis of hip: (5) Failed back syndrome: (6) Bilateral hip pain: (7) Chronic prescription opiate use: Assessment and Plan: functional goals: care for self, care for brother, complete housework and take care of the yard, improve pain I feel these medications are improving the patient's quality of life and allow them to tolerate activities of daily living as well as participate in recreational activity.? The patient does not report intolerable side effects. The patient is NOT opioid naive and non-pharmacologic and non-opioid treatment has failed to significantly relieve the patient's pain and improve functionality. The patient has a diagnosis that is related to a somatic or visceral pain etiology. ? ?? I reviewed with the patient the potential risks and side effects with the use of? opioid medications including but not limited to respiratory depression,? sedation, and even . I verified the patient has access to naloxone should? these effects occur. I advised the patient to avoid the use of any other? sedation substances including alcohol, THC, and benzodiazepines while? taking opioid medications due to the risk of compounding side effects and? detrimental outcomes. I reviewed the [facility], pain treatment agreement, urine? drug screen, and opioid start talking forms. The patient was advised to let? their family know they had Naloxone in case they would need to administer? the medication.? ?? A drug screen was completed within the last year, and no aberrancies were noted regarding their use of controlled substances. The patient understands they are subject to the terms and conditions of the pain contract that they have signed. ? ?? I have checked an OARRS report on this patient today and there are no aberrancies noted in the prescribing history.? (8) Chronic pain syndrome: Plan bilateral L4-5 L5-S1 facet medial branch thermal RFA, to be completed under fluoroscopy, risks vs benefits reviewed continue tylenol #3 1-2 tabs TID PRN 30 day supply, plan to wean after injection therapy narcan discussed and prescribed last visit f/u 1 month after RFA
== END 2024-04-01 07:59 | disposition home or self-care (01) ==
PROVIDERS: PCP Family Medicine; Visit Provider Nurse Practitioner
DX: M47.816 Spondylosis without myelopathy or radiculopathy, lumbar region (principal); M48.062 Spinal stenosis, lumbar region with neurogenic claudication; M46.1 Sacroiliitis, not elsewhere classified; M16.0 Bilateral primary osteoarthritis of hip; M96.1 Postlaminectomy syndrome, not elsewhere classified; M25.551 Pain in right hip; M25.552 Pain in left hip; Z79.891 Long term (current) use of opiate analgesic; G89.4 Chronic pain syndrome
CPT/HCPCS: G0463

== ENCOUNTER 2024-04-06 10:12 | Day surgery (SDC) | payer MEDICARE, SELFPAY ==
[2024-04-06 10:47] VITALS: BP 165/102; PULSE 69; TEMP 36.6; O2SAT 97
[2024-04-06 10:53] LABS: Glucometer 233 mg/dL (74-106)
[2024-04-06] MEDS: LIDOCAINE HCL 2% 400 MG/20 ML MDV 16 ML INJ (11:32)
[2024-04-06] MEDS: BUPIVACAINE HCL 0.25% PF 25 MG/10 ML VIAL 4 ML INJ (11:32)
[2024-04-06] MEDS: TRIAMCINOLONE ACETONIDE 40 MG/ML VIAL 80 MG INJ (11:33)
[2024-04-06 11:34] VITALS: BP 142/87; BP 149/90; PULSE 66; PULSE 69; O2SAT 97; O2SAT 99
--- NOTE | 2024-04-06 11:43 | P.ON_ITS ---
Date of procedure: 04/06/24 Pre-op diagnosis: Pain due to lumbar spondylosis without myelopathy Post-op diagnosis: same as pre-op Procedure: Procedure: Bilateral L4-5, l5-S1 radiofrequency ablation Medications: Bupivacaine 0.25% 6cc, lidocaine 2% 6cc, kenalog 80mg The patient was seen and examined in the preoperative holding area.? The site was marked.? Written informed consent was obtained and placed on the chart.? The patient was brought to the medical procedure unit and placed in the prone position.? A timeout was completed verifying correct patient, procedure, positioning, and special requirements.? The skin overlying the target points, the designated medial branch, were prepped and draped in the usual sterile fashion.? The target point was achieved with a 20-gauge 15 cm with a 10 mm curved active tip radiofrequency cannula under direct fluoroscopic visualization.? The needle was inserted at level L4 on the right side. Needle tip position was confirmed with lateral fluoroscopic position.? Motor stimulation was carried out at 2 Hz up to 5 volts with the absence of extremity activity.? This was repeated at level L5, S1 on right side.?? Sensory stimulation was carried out.? Concordant pain was realized at the above- mentioned sites.? Then radiofrequency lesioning was carried out times 90 seconds at 80 degrees times 2 lesions at each level.? The radiofrequency probe was removed prior to cannula removal.? The above-mentioned injectate was placed in 1 mL increments.? The needle was removed. The same procedure, with the same steps, was then completed on the left side at the same levels. Insertion sites were covered.? The patient was taken to the postoperative recovery area and monitored for an appropriate length of time before being found suitable for discharge in the company of a responsible adult. Anesthesia: Local Surgeon: Zacarias Pike Pathology: none sent Condition: stable Disposition: no change
== END 2024-04-06 11:47 | disposition home or self-care (01) ==
PROVIDERS: PCP Family Medicine; Visit Provider Anesthesiology
DX: M47.816 Spondylosis without myelopathy or radiculopathy, lumbar region (principal); Z79.84 Long term (current) use of oral hypoglycemic drugs
CPT/HCPCS: 36415; 64635; 64636; 82948; J0665; J3301

== ENCOUNTER 2024-04-08 08:22 | Outpatient (OUT) | payer MEDICARE, MEDICAID, SELFPAY ==
--- NOTE | 2024-04-08 08:27 | FL_ITS ---
The [address] [address] Patient Name: ERIC CRAIG MRN: [id number] date: 1960 Sex: M Assigned Patient Location: [place] Current Patient Location: [place] Accession/Order Number: [id number] Exam Date: 04/08/2024 08:45 Report Date: 04/08/2024 10:57 At the request of: MALATHI SANCHEZ Procedure: FL barium swallow EXAMINATION: FL barium swallow, FL cineradiography HISTORY: Pharyngoesophageal Dysphagia COMPARISON: No relevant comparison available. TECHNIQUE: A swallowing evaluation was performed with fluoroscopy in the usual manner. Standard level fluoroscopic mode of operation utilized. FINDINGS: ORAL PHASE: Normal deglutition. PHARYNGEAL PHASE: Normal swallowing. ASPIRATION: None. STRUCTURE: Marked narrowing versus incomplete opening of the gastroesophageal valve, 4 mm in maximum diameter during the study. Swallowed oral contrast accumulates within the esophagus with intermittent slight opening of the gastroesophageal valve allowing passage. Tertiary waves develop within the distal esophagus. Patient swallowed a 12 mm diameter barium tablet which would not pass through the gastroesophageal valve. Tablet eventually dissolved and passed into the stomach. OTHER: Negative. FL/FL barium swallow IMPRESSION: 1. Marked narrowing/incomplete opening of gastroesophageal valve. No mucosal irregularity to suggest a mass, but direct visualization is recommended. 2. Development of tertiary waves within the esophagus after fluid has accumulated and sat in the distal esophagus. Electronically authenticated by: YEISON NAVAS Date: 04/08/2024 10:57
--- NOTE | 2024-04-08 08:27 | FL_ITS ---
The [address] [address] Patient Name: ERIC CRAIG MRN: [id number] date: 1960 Sex: M Assigned Patient Location: [place] Current Patient Location: [place] Accession/Order Number: [id number] Exam Date: 04/08/2024 08:45 Report Date: 04/08/2024 10:57 At the request of: MALATHI SANCHEZ Procedure: FL cineradiography EXAMINATION: FL barium swallow, FL cineradiography HISTORY: Pharyngoesophageal Dysphagia COMPARISON: No relevant comparison available. TECHNIQUE: A swallowing evaluation was performed with fluoroscopy in the usual manner. Standard level fluoroscopic mode of operation utilized. FINDINGS: ORAL PHASE: Normal deglutition. PHARYNGEAL PHASE: Normal swallowing. ASPIRATION: None. STRUCTURE: Marked narrowing versus incomplete opening of the gastroesophageal valve, 4 mm in maximum diameter during the study. Swallowed oral contrast accumulates within the esophagus with intermittent slight opening of the gastroesophageal valve allowing passage. Tertiary waves develop within the distal esophagus. Patient swallowed a 12 mm diameter barium tablet which would not pass through the gastroesophageal valve. Tablet eventually dissolved and passed into the stomach. OTHER: Negative. FL/FL cineradiography IMPRESSION: 1. Marked narrowing/incomplete opening of gastroesophageal valve. No mucosal irregularity to suggest a mass, but direct visualization is recommended. 2. Development of tertiary waves within the esophagus after fluid has accumulated and sat in the distal esophagus. Electronically authenticated by: YEISON NAVAS Date: 04/08/2024 10:57
--- OUTSIDE RECORDS SUMMARY | 2024-04-08 08:34 | XMS_ITS | CCD ---
Author Organization [facility] Care Team Providers Care Support Group Manager Name Role Phone Ronnie Kesha Unavailable Chepe [...] OLEXA, KESHA Attending Unavailable MAGALLANES, DR HANNAH oJvel Primary Care Unavailable MAGALLANES, DR HANNAH Jovel [...] Unavailable Hannah Magallanes MD Primary Care Provider [phone] POCOS, BARBIE Tellez Attending Unavailable POCOS, BARBIE Tellez Referring Unavailable POCOS, HI Attending Unavailable BARBIE TAPIA Attending Unavailable Giedraitis , Zacarias Miranda Attending Unavailable Giedraitis , Zacarias Miranda Attending Unavailable Giedraitis , Zacarias Miranda Attending Unavailable Giedraitis , Zacarias Miranda Attending Unavailable Allergies Allergy Classification Reported Allergen(s) Allergy Type Date of Onset Reaction(s) Facility (20 sources) Ibuprofen Drug Allergy [facility] Other (20 sources) olodaterol / tiotropium Drug Allergy shortness of breath [facility] Other (20 sources) CT Scan dye Propensity to adverse reactions [facility] Other (6 sources) Ibuprofen Drug Allergy 08-19-18 80 [facility] Repository (2 sources) Iodine (And Iodine Containting Drugs) Drug allergy (disorder) 09-07-19 16 [facility] Repository (1 source) NSAIDs Drug allergy (disorder) [facility] Repository (20 sources) fentaNYL Drug Allergy 12-05-19 24 Unknown, [facility] (4 sources) Ibuprofen Drug Allergy 01-15-20 15 [facility] (20 sources) Ofloxacin Drug Allergy 12-05-19 24 Unknown, [facility] (3 sources) zafirlukast Drug Allergy 01-15-20 15 Unknown [facility] Other (20 sources) Zafirlukast *ANTIASTHMATIC AND BRONCHODILATOR AGEN Propensity to adverse reactions Unknown [facility] Other (20 sources) Ibuprofen & Diet Manage Prod *ANALGESICS - ANTI-IN Propensity to adverse reactions Unknown [facility] Other (3 sources) Allergies Reconciled Propensity to adverse reactions Unknown [facility] Other (20 sources) Iodinated contrast media (substance) Drug allergy 06-03-20 19 Rash [facility] Other (3 sources) patient allergy list reviewed by nurse or physicia Propensity to adverse reactions 10-05-19 16 Comment:Done [facility] Other (4 sources) olodaterol Drug Allergy 12-05-19 24 shortness of breath [facility] (4 sources) tiotropium Drug Allergy 12-05-19 24 shortness of breath [facility] (4 sources) Iodinated Contrast Media Allergy to substance 12-05-19 [facility] (4 sources) Ibuprofen & Diet Manage Prod * Allergy to substance 12-04-19 [facility] (4 sources) Zafirlukast *ANTIASTHMATIC AND Allergy to substance 12-04-19 [facility] Medications Current Medications Medication Drug Class(es) [...] as needed Orally every 6 hrs Active [id number] 200 actuat albuterol 0.09 mg/actuat metered dose [...] Start: 07-19-2023 take 2 tablets by mo [facility] in the morning glipiZIDE-metFORMIN (Metaglip) 5-500 MG tablet Take 2 tablets by mouth in the morning and 2 tablets before bedtime. 0 07/19/2023 Active take 2 tablets by mo [facility] twice daily glipiZIDE-metFORMIN HCl 5-500 MG 2 tab Orally bid for 90 days Active [facility] glipiZIDE-metFORMIN HCl 5-500 MG [...] Start: 11-23-2022 take 2 tablets by mo [facility] every twenty-four hours predniSONE 20 MG [...] days May, Active Start: 2023 HYDROcodone-ac etaminophen ([place]) 10-325 MG tablet Start: 2023 take 1 [...] 30 mg oral tablet (5 sources) Uncompetitive U-vuvcyo-M-aspartate Receptor Antagonist, Sigma-1 Agonist Start: 05-26-2021 take 1 tablet by mouth every eight hours [place] DMT 30-30 MG 1 tablet Orally every [...] 10-05-2015 Episodic Other aftercare (1 source) Other custodial (current) drug therapy; Translations: [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] Onset: 12-29-2021 Episodic Other [...] Basophils (Bld) [#/Vol] 0.1 10 3/uL 0.0-0.1 [facility] Basophils/100 WBC Auto (Bld) on 02-27-2024 Basophils/100 WBC (Bld) 0.5 % 0.2-2.0 [facility] Eosinophils/100 WBC Auto (Bl d)on 02-27-2024 Eosinophils/100 WBC (Bld) 2.5 % 0.9-7.0 [facility] Erythrocyte distribution wid th Auto (RBC) [Ratio]on 02-27-2024 Erythrocyte distribution width (RBC) [Ratio] 13.5 % 11.0-15.0 [facility] Estimated glomerular filtrat ion rate (GFR) non- Americanon 02-27-2024 GFR/1.73 sq M.predicted among non-blacks MDRD (S/P/Bld) [Vol rate/Area] mL/min/{1.73_m2} >=60 [facility] Hematocrit Auto (Bld) [Volum e fraction]on 02-27-2024 Hematocrit (Bld) [Volume fraction] 47.1 % 42.0-54.0 [facility] Hemoglobin [Mass/volume] in Bloodon 02-27-2024 Hemoglobin (Bld) [Mass/Vol] 15.5 g/dL 14.0-18.0 [facility] Laboratory - Chemistry and C hemistry - challengeon 02-27-2024 Calcium [Mass/Vol] 8.9 mg/dL 8.5-10.1 [facility] Chloride [Moles/Vol] 98 mmol/L 98-107 [facility] CO2 [Moles/Vol] 28.1 mmol/L 21.0-32.0 [facility] Creatinine [Mass/Vol] 0.86 mg/dL 0.70-1.30 [facility] GFR/1.73 sq M.predicted MDRD (S/P/Bld) [Vol rate/Area] mL/min/{1.73_m2} >=60 [facility] Glucose [Mass/Vol] 237 mg/dL High 74-106 [facility] Lactate [Moles/Vol] 1.3 mmol/L 0.4-2.0 [facility] Potassium [Moles/Vol] 4.4 mmol/L 3.5-5.1 [facility] Sodium [Moles/Vol] 130 mmol/L Low 136-145 [facility] Urea nitrogen [Mass/Vol] 21.0 mg/dL High 7.0-18.0 [facility] Urea nitrogen/Creatinine [Mass ratio] 24.4 mg/mg [facility] Laboratory - Hematology and Cell countson 02-27-2024 Immature granulocytes/100 WBC (Bld) 0.3 % 0.0-0.5 [facility] Leukocytes [#/volume] correc jean claude for nucleated erythrocytes in Blood by Automated counon 02-27-2024 WBC corrected for nucl RBC Auto (Bld) [#/Vol] 9.3 10 3/uL 4.0-11.0 [facility] Lymphocytes Auto (Bld) [#/Vo l]on 02-27-2024 Lymphocytes (Bld) [#/Vol] 2.4 10 3/uL 1.2-3.8 [facility] Lymphocytes/100 WBC Auto (Bl d)on 02-27-2024 Lymphocytes/100 WBC (Bld) 25.5 % 20.5-60.0 [facility] MCH Auto (RBC) [Entitic mass ]on 02-27-2024 MCH (RBC) [Entitic mass] 29.1 pg 25.9-34.0 [facility] MCHC Auto (RBC) [Mass/Vol]on 02-27-2024 MCHC (RBC) [Mass/Vol] 32.9 g/dL 29.9-35.2 [facility] MCV Auto (RBC) [Entitic vol] on 02-27-2024 MCV (RBC) [Entitic vol] 88.5 fL 80.0-94.0 [facility] Monocytes Auto (Bld) [#/Vol] on 02-27-2024 Monocytes (Bld) [#/Vol] 1.1 10 3/uL High 0.3-0.8 [facility] Monocytes/100 WBC Auto (Bld) on 02-27-2024 Monocytes/100 WBC (Bld) 12.0 % 1.7-12.0 [facility] Neutrophils Auto (Bld) [#/Vo l]on 02-27-2024 Neutrophils (Bld) [#/Vol] 5.5 10 3/uL 1.4-6.5 [facility] Neutrophils/100 WBC Auto (Bl d)on 02-27-2024 Neutrophils/100 WBC (Bld) 59.2 % 43.0-75.0 [facility] No Panel Informationon 02-26 Eosinophils # (Auto) 0.2 10 3/uL 0.0-0.7 [facility] Immature Granulocyte # (Auto) 0.03 10 3/uL 0.00-0.03 [facility] Platelet mean volume Auto (B ld) [Entitic vol]on 02-27-2024 Platelet mean volume (Bld) [Entitic vol] 8.8 fL Low 9.5-13.5 [facility] Platelets Auto (Bld) [#/Vol] on 02-27-2024 Platelets (Bld) [#/Vol] 288 10 3/uL 150-450 [facility] RBC Auto (Bld) [#/Vol]on RBC (Bld) [#/Vol] 5.32 10 6/uL 4.70-6.10 [facility] Serum or plasma anion gap de terminationon 02-27-2024 Anion gap [Moles/Vol] 8.3 mmol/L [facility] Basophils Auto (Bld) [#/Vol] on 12-05-2023 Basophils (Bld) [#/Vol] 0.1 10 3/uL 0.0-0.1 [facility] Basophils/100 WBC Auto (Bld) on 12-05-2023 Basophils/100 WBC (Bld) 0.9 % 0.2-2.0 [facility] Eosinophils/100 WBC Auto (Bl d)on 12-05-2023 Eosinophils/100 WBC (Bld) 2.7 % 0.9-7.0 [facility] Erythrocyte distribution wid th Auto (RBC) [Ratio]on 12-05-2023 Erythrocyte distribution width (RBC) [Ratio] 13.1 % 11.0-15.0 [facility] Estimated glomerular filtrat ion rate (GFR) non- Americanon 12-05-2023 GFR/1.73 sq M.predicted among non-blacks MDRD (S/P/Bld) [Vol rate/Area] mL/min/{1.73_m2} >=60 [facility] Glucose mean value [Mass/vol ume] in Blood Estimated from glycated hemoglobinon 12-05-2023 Average glucose Estimated from glycated hemoglobin (Bld) [Mass/Vol] 171 mg/dL [facility] Hematocrit Auto (Bld) [Volum e fraction]on 12-05-2023 Hematocrit (Bld) [Volume fraction] 48.9 % 42.0-54.0 [facility] Hemoglobin [Mass/volume] in Bloodon 12-05-2023 Hemoglobin (Bld) [Mass/Vol] 16.0 g/dL 14.0-18.0 [facility] Laboratory - Chemistry and C hemistry - challengeon 12-05-2023 Calcium [Mass/Vol] 9.7 mg/dL 8.5-10.1 [facility] Chloride [Moles/Vol] 102 mmol/L 98-107 [facility] CO2 [Moles/Vol] 27.6 mmol/L 21.0-32.0 [facility] Creatinine [Mass/Vol] 1.01 mg/dL 0.70-1.30 [facility] GFR/1.73 sq M.predicted MDRD (S/P/Bld) [Vol rate/Area] mL/min/{1.73_m2} >=60 [facility] Glucose [Mass/Vol] 156 mg/dL High 74-106 [facility] Potassium [Moles/Vol] 4.4 mmol/L 3.5-5.1 [facility] Sodium [Moles/Vol] 139 mmol/L 136-145 [facility] Urea nitrogen [Mass/Vol] 13.0 mg/dL 7.0-18.0 [facility] Urea nitrogen/Creatinine [Mass ratio] 12.9 mg/mg [facility] Laboratory - Hematology and Cell countson 12-05-2023 ESR (Bld) [Velocity] 17 mm/h <=20 [facility] HbA1c (Bld) [Mass fraction] 7.6 % High 4.5-6.2 [facility] Comment on above: ADA RECOMMENDED LIMI T 4.0 - 6.0ADA THERAPEUTIC TARGET < 7.0ACTION SUGGESTED> 7.0 Immature granulocytes/100 WBC (Bld) 0.4 % 0.0-0.5 [facility] Leukocytes [#/volume] correc jean claude for nucleated erythrocytes in Blood by Automated counon 12-05-2023 WBC corrected for nucl RBC Auto (Bld) [#/Vol] 7.7 10 3/uL 4.0-11.0 [facility] Lymphocytes Auto (Bld) [#/Vo l]on 12-05-2023 Lymphocytes (Bld) [#/Vol] 2.4 10 3/uL 1.2-3.8 [facility] Lymphocytes/100 WBC Auto (Bl d)on 12-05-2023 Lymphocytes/100 WBC (Bld) 31.2 % 20.5-60.0 [facility] MCH Auto (RBC) [Entitic mass ]on 12-05-2023 MCH (RBC) [Entitic mass] 28.5 pg 25.9-34.0 [facility] MCHC Auto (RBC) [Mass/Vol]on 12-05-2023 MCHC (RBC) [Mass/Vol] 32.7 g/dL 29.9-35.2 [facility] MCV Auto (RBC) [Entitic vol] on 12-05-2023 MCV (RBC) [Entitic vol] 87.0 fL 80.0-94.0 [facility] Monocytes Auto (Bld) [#/Vol] on 12-05-2023 Monocytes (Bld) [#/Vol] 0.7 10 3/uL 0.3-0.8 [facility] Monocytes/100 WBC Auto (Bld) on 12-05-2023 Monocytes/100 WBC (Bld) 9.5 % 1.7-12.0 [facility] Neutrophils Auto (Bld) [#/Vo l]on 12-05-2023 Neutrophils (Bld) [#/Vol] 4.2 10 3/uL 1.4-6.5 [facility] Neutrophils/100 WBC Auto (Bl d)on 12-05-2023 Neutrophils/100 WBC (Bld) 55.3 % 43.0-75.0 [facility] No Panel Informationon 12-04 Eosinophils # (Auto) 0.2 10 3/uL 0.0-0.7 [facility] Immature Granulocyte # (Auto) 0.03 10 3/uL 0.00-0.03 [facility] Platelet mean volume Auto (B ld) [Entitic vol]on 04-18-2024 Platelet mean volume (Bld) [Entitic vol] 8.6 fL Low 9.5-13.5 [facility] Platelets Auto (Bld) [#/Vol] on 12-05-2023 Platelets (Bld) [#/Vol] 330 10 3/uL 150-450 [facility] RBC Auto (Bld) [#/Vol]on RBC (Bld) [#/Vol] 5.62 10 6/uL 4.70-6.10 [facility] Serum or plasma anion gap de terminationon 12-05-2023 Anion gap [Moles/Vol] 13.8 mmol/L [facility] Magnesiumon 07-02-2023 Magnesium [Mass/Vol] 2.2518865 mg/dL Normal 1.8-2.4 mg/dL [facility] Other Magnesium see note [facility] Other MRI Shoulder w/o Contrast [facility] 05-31-2023 MRI Shoulder w/o Contrast Right [...] TAMARA Technologist: STELLA Technical Comments None Normal [facility] Consent for Treatmenton 05-19 Consent for Treatment [id number]#1 .00TIFF Normal [facility] RAD - MRI Screening Formon 1 RAD - MRI Screening Form [id number]#1. 00TIFF Normal [facility] Physician Orderon 05-09-2023 Physician Order [id number]# 1.00CD:127 Normal [facility] XR CHEST 2 Von 11-24-2022 XR [...] by: RUBI TAVERAS Date: 2022-11-24 17:17 Normal [facility] CT LUNG CANCER SCREENINGon 1 [...] YEISON NAVAS Date: 2022-07-20 07:18 Normal [facility] CBC AUTO DIFFon 06-07-2022 BASO # 0.1 103/ul Normal 0.0-0.1 [facility] Comment on above: Performed By: #### C BC #### [facility] [address] [place] [address] Dr. Eran Chacon Basophils/100 WBC (Bld) 0.6 % Normal 0.2-2.0 [facility] Comment on above: Performed By: #### C BC #### [facility] [address] [place] [address] Dr. Eran Chacon EO # 0.3 103/ul Normal 0.0-0.7 [facility] Comment on above: Performed By: #### C BC #### [facility] [address] [place] [address] Dr. Eran Chacon Eosinophils/100 WBC (Bld) 3.3 % Normal 0.9-7.0 [facility] Comment on above: Performed By: #### C BC #### [facility] [address] [place] [address] Dr. Eran Chacon Erythrocyte distribution width (RBC) [Ratio] 12.9 % Normal 11.0-15.0 [facility] Comment on above: Performed By: #### C BC #### [facility] [address] [place] [address] Dr. Eran Chacon Hematocrit (Bld) [Volume fraction] 47.7 % Normal 42.0-54.0 [facility] Comment on above: Performed By: #### C BC #### [facility] [address] [place] [address] Dr. Eran Chacon Hemoglobin (Bld) [Mass/Vol] 15.9 g/dL Normal 14.0-18.0 [facility] Comment on above: Performed By: #### C BC #### [facility] [address] [place] [address] Dr. Eran Chacon IG # 0.02 10e3/ul Normal 0.00-0.03 [facility] Comment on above: Performed By: #### C BC #### [facility] [address] [place] [address] Dr. Eran Chacon IG % 0.2 % Normal 0.0-0.5 [facility] Comment on above: Performed By: #### C BC #### [facility] [address] [place] [address] Dr. Eran Chacon LYMPH # 3.4 103/ul Normal 1.2-3.8 [facility] Comment on above: Performed By: #### C BC #### [facility] [address] [place] [address] Dr. Eran Chacon Lymphocytes/100 WBC (Bld) 34.5 % Normal 20.5-60.0 [facility] Comment on above: Performed By: #### C BC #### [facility] [address] [place] [address] Dr. Eran Chacon MANUAL DIFF REQ NO Normal [facility] Comment on above: Performed By: #### C BC #### [facility] [address] [place] [address] Dr. Eran Chacon MCH (RBC) [Entitic mass] 29.6 pg Normal 25.9-34.0 [facility] Comment on above: Performed By: #### C BC #### [facility] [address] [place] [address] Dr. Eran Chacon MCHC (RBC) [Mass/Vol] 33.3 g/dL Normal 29.9-35.2 [facility] Comment on above: Performed By: #### C BC #### [facility] [address] [address] [address] Eran Chacon MCV (RBC) [Entitic vol] 88.8 fL Normal 80.0-94.0 [facility] Comment on above: Performed By: #### C BC #### [facility] [address] [address] [address] Eran Chacon MONO # 0.9 103/ul Critically high 0.3-0.8 [facility] Comment on above: Performed By: #### C BC #### [facility] [address] [address] [address] Eran Chacon Monocytes/100 WBC (Bld) 9.3 % Normal 1.7-12.0 [facility] Comment on above: Performed By: #### C BC #### [facility] [address] [address] [address] Eran Chacon NEUT # 5.2 103/ul Normal 1.4-6.5 [facility] Comment on above: Performed By: #### C BC #### [facility] [address] [address] [address] Eran Chacon Neutrophils/100 WBC (Bld) 52.1 % Normal 43.0-75.0 [facility] Comment on above: Performed By: #### C BC #### [facility] [address] [address] [address] Eran Chacon Platelet mean volume (Bld) [Entitic vol] 8.8 fL Critically low 9.5-13.5 [facility] Comment on above: Performed By: #### C BC #### [facility] [address] [address] [address] Eran Chacon PLT 287 103/ul Normal 150-450 [facility] Comment on above: Performed By: #### C BC #### [facility] [address] [address] [address] Eran Chacon RBC 5.37 106/ul Normal 4.70-6.10 [facility] Comment on above: Performed By: #### C BC #### [facility] [address] [place] [address] Dr. Eran Chacon WBC 9.9 103/ul Normal 4.0-11.0 [facility] Comment on above: Performed By: #### C BC #### [facility] [address] [place] [address] Dr. Eran Chacon ER URINE PROFILEon 2 Bilirubin Ql (U) Negative Normal NEGATIVE [facility] Comment on above: Performed By: #### BISHNU BATESRO #### [facility] [address] [place] [address] Dr. Eran Chacon Clarity (U) CLEAR Normal CLEAR [facility] Comment on above: Performed By: #### BISHNU BATESRO #### [facility] [address] [place] [address] Dr. Eran Chacon Color (U) YELLOW Normal YELLOW [facility] Comment on above: Performed By: #### BISHNU BATESRO #### [facility] [address] [place] [address] Dr. Eran GATES A micrscopic examination will be performed if indicated. Normal [facility] Comment on above: Performed By: #### BISHNU BATESRO #### [facility] [address] [place] [address] Dr. Eran Chacon Glucose Ql (U) 500 mg/dl Abnormal NEGATIVE [facility] Comment on above: Performed By: #### BISHNU BATESRO #### [facility] [address] [place] [address] Dr. Eran Chacon Hemoglobin Ql (U) TRACE-INTACT Abnormal NEGATIVE [facility] Comment on above: Performed By: #### BISHNU BATESRO #### [facility] [address] [place] [address] Dr. Eran Chacon Ketones Ql (U) Negative Normal NEGATIVE [facility] Comment on above: Performed By: #### BISHNU BATESRO #### [facility] [address] [place] [address] Dr. Eran Chacon LEUKOCYTES Negative Normal NEGATIVE [facility] Comment on above: Performed By: #### John SHER, UMICRO #### [facility] [address] [place] [address] Dr. Eran Chacon Nitrite Ql (U) Negative Normal NEGATIVE [facility] Comment on above: Performed By: #### John SHER, UMICRO #### [facility] [address] [place] [address] Dr. Eran Chacon pH (U) 6.0 [pH] Normal 5-9 [facility] Comment on above: Performed By: #### John SHER UMICRO #### [facility] [address] [place] [address] Dr. Eran Chacon SPEC GRAVITY 1.025 Normal 1.005-<=1.025 [facility] Comment on above: Performed By: #### John SHER, UMICRO #### [facility] [address] [place] [address] Dr. Eran Chacon UA PROTEIN Negative Normal NEGATIVE/ TRACE [facility] Comment on above: Performed By: #### John SHER UMICRO #### [facility] [address] [place] [address] Dr. Eran Chacon UR MICRO IND INDICATED Normal [facility] Comment on above: Performed By: #### John SHER, UMICRO #### [facility] [address] [place] [address] Dr. Eran Chacon Urobilinogen Qn (U) 0.2 {Aureliano'U}/dL Normal 0.2 - 1. 0 [facility] Comment on above: Performed By: #### John SHER UMICRO #### [facility] [address] [place] [address] Dr. Eran Chacon PROF 14(COMP METB)on 022 Albumin [Mass/Vol] 4.0 g/dL Normal 3.4-5.0 [facility] Comment on above: Performed By: #### C MP #### [facility] [address] [place] [address] Dr. Eran Chacon Albumin/Globulin [Mass ratio] 1.2 {ratio} Normal [facility] Comment on above: Performed By: #### C MP #### [facility] [address] [address] [address] Eran Chacon ALP [Catalytic activity/Vol] 104 U/L Normal 46-116 [facility] Comment on above: Performed By: #### C MP #### [facility] [address] [address] [address] Eran Chacon ALT [Catalytic activity/Vol] 28 U/L Normal 16-63 [facility] Comment on above: Performed By: #### C MP #### [facility] [address] [address] [address] Eran Chacon Anion gap [Moles/Vol] 7.2 mmol/L Normal [facility] Comment on above: Performed By: #### C MP #### [facility] [address] [address] [address] Eran Chacon AST [Catalytic activity/Vol] 14 U/L Critically low 15-37 [facility] Comment on above: Performed By: #### C MP #### [facility] [address] [address] [address] Eran Chacon Bilirubin [Mass/Vol] 0.4 mg/dL Normal 0.2-1.0 [facility] Comment on above: Performed By: #### C MP #### [facility] [address] [address] [address] Eran Chaocn Calcium [Mass/Vol] 9.0 mg/dL Normal 8.5-10.1 [facility] Comment on above: Performed By: #### C MP #### [facility] [address] [address] [address] Eran Chacon Chloride [Moles/Vol] 103 mmol/L Normal 98-107 [facility] [facility] Comment on above: Performed By: #### C MP #### [facility] [address] [address] [address] Eran Chacon CO2 [Moles/Vol] 30.0 mmol/L Normal 21.0-32.0 [facility] Comment on above: Performed By: #### C MP #### [facility] [address] [address] [address] Eran Chacon Creatinine [Mass/Vol] 0.85 mg/dL Normal 0.70-1.30 [facility] Comment on above: Performed By: #### C MP #### [facility] [address] [address] [address] Eran Chacon EGFR-AF BRAZILIAN >60 Normal >=60 [facility] Comment on above: Performed By: #### C MP #### [facility] [address] [address] [address] Eran Chacon EGFR-NON AF BRAZILIAN >60 Normal >=60 [facility] Comment on above: Performed By: #### C MP #### [facility] [address] [place] [address] Dr. Eran Chacon Globulin (S) [Mass/Vol] 3.3 g/dL Normal [facility] Comment on above: Performed By: #### C MP #### [facility] [address] [place] [address] Dr. Eran Chacon Glucose [Mass/Vol] 165 mg/dL Critically high 74-106 T [facility] Comment on above: Performed By: #### C MP #### [facility] [address] [place] [address] Dr. Eran Chacon Potassium [Moles/Vol] 4.2 mmol/L Normal 3.5-5.1 [facility] Comment on above: Performed By: #### C MP #### [facility] [address] [place] [address] Dr. Eran Chacon Protein [Mass/Vol] 7.3 g/dL Normal 6.4-8.2 [facility] Comment on above: Performed By: #### C MP #### [facility] [address] [place] [address] Dr. Eran Chacon Sodium [Moles/Vol] 136 mmol/L Normal 136-145 [facility] Comment on above: Performed By: #### C MP #### [facility] [address] [place] [address] Dr. Eran Chacon Urea nitrogen [Mass/Vol] 10.0 mg/dL Normal 7.0-18.0 [facility] Comment on above: Performed By: #### C MP #### [facility] [address] [place] [address] Dr. Eran Chacon Urea nitrogen/Creatinine [Mass ratio] 11.8 mg/mg Normal [facility] Comment on above: Performed By: #### C MP #### [facility] [address] [place] [address] Dr. Eran Chacon URINE MICROSCOPIC ONLYon BACTERIA NONE SEEN Normal NONE SEEN [facility] Comment on above: Performed By: #### John SHER UMICRO #### [facility] [address] [place] [address] Dr. Eran Chacon Bacteria identified Cx Nom (U) NOT INDICATED Normal [facility] Comment on above: Performed By: #### John SHER UMICRO #### [facility] [address] [place] [address] Dr. Earn Chacon CAST NONE SEEN Normal NONE SEEN [facility] Comment on above: Performed By: #### oJhn SHER UMICRO #### [facility] [address] [place] [address] Dr. Eran Chacon Crystals LM Nom (Urine sed) NONE SEEN Normal NONE SEEN [facility] Comment on above: Performed By: #### John SHER UMICRO #### [facility] [address] [place] [address] Dr. Eran Chacon Epithelial cells LM Ql (Urine sed) RARE Normal NONE SEEN /RARE [facility] Comment on above: Performed By: #### John SHER UMICRO #### [facility] [address] [place] [address] Dr. Eran Chacon MUCOUS NONE SEEN Normal NONE SEEN [facility] Comment on above: Performed By: #### John SHER UMICRO #### [facility] [address] [place] [address] Dr. Eran Chacon RBC 0-2 Normal 0-2 [facility] Comment on above: Performed By: #### E HANNA SHER #### [facility] [address] [place], [place] [address] Dr. Eran Chacon WBC 2-5 Abnormal NONE SEEN [facility] Comment on above: Performed By: #### E HANNA SHER #### [facility] [address] [place], [place] [address] Dr. Eran Chacon MRI SHOULDER LT WO [...] min 2V*on XR shoulder LT min 2V* [facility] [place] [address] [place] [address] XRay Report Signed Patient: Nicholas Ziegler MR#: [id number] : [id number] Acct:[id number] Age/Sex: 61 / M ADM Date: 01/25/22 Loc: [facility] Room: Type: [facility] Attending Dr: Kesha Trujillo MD Ordering Provider: [...] ACUTE BONY INJURY. Impression dictated by: Otilia uNnez M.D.01/25/2022 11:41 AM Dictation Location: [address] [address] Transcribed By: [facility] 01/25/22 1141 Dictated By: Otilia Nunez MD 01/25/22 1139 Signed By: 01/25/22 1141 Normal [facility] Vital Signs Date Time Vital Sign Value Performing Clinician Facility 03-18-2024 08:46-0400 Body height 175.26 cm [facility] 03-18-2024 08:46-0400 Body mass index (BMI) [Ratio] 34.4 kg/m2 [facility] 03-18-2024 08:46-0400 Body weight 105.68 kg [facility] 03-18-2024 08:46-0400 Diastolic blood pressure 80 mm[Hg] [facility] 03-18-2024 08:46-0400 Heart rate 72 /min [facility] 03-18-2024 08:46-0400 Systolic blood pressure 130 mm[Hg] [facility] 03-03-2024 11:54-0400 Body height 175.26 cm [facility] 03-03-2024 11:54-0400 Body mass index (BMI) [Ratio] 34.7 kg/m2 [facility] 03-03-2024 11:54-0400 Body weight 106.59 kg [facility] 03-03-2024 11:54-0400 Diastolic blood pressure 81 mm[Hg] [facility] 03-03-2024 11:54-0400 Heart rate 69 /min [facility] 03-03-2024 11:54-0400 Systolic blood pressure 129 mm[Hg] [facility] 12-17-2023 08:54-0400 Body height 175.26 cm [facility] 12-17-2023 08:54-0400 Body mass index (BMI) [Ratio] 35.2 kg/m2 [facility] 12-17-2023 08:54-0400 Body weight 108.4 kg [facility] 12-17-2023 08:54-0400 Diastolic blood pressure 76 mm[Hg] [facility] 12-17-2023 08:54-0400 Heart rate 76 /min [facility] 12-17-2023 08:54-0400 Systolic blood pressure 154 mm[Hg] [facility] 12-05-2023 08:52-0400 Body height 175.26 cm [facility] 12-05-2023 08:52-0400 Body mass index (BMI) [Ratio] 35 kg/m2 [facility] 12-05-2023 08:52-0400 Body weight 107.67 kg [facility] 12-05-2023 08:52-0400 Diastolic blood pressure 78 mm[Hg] [facility] 12-05-2023 08:52-0400 Heart rate 69 /min [facility] 12-05-2023 08:52-0400 Systolic blood pressure 147 mm[Hg] [facility] 09-13-2023 13:30-0500 Body height 175.26 cm Hannah Magallanes Other [facility] 09-13-2023 13:30-0500 Body mass index (BMI) [Ratio] 33.22 kg/m2 Hannah Magallanes Other [facility] Other 09-13-2023 13:30-0500 Body temperature 98.4 [degF] Hannah Magallanes Other [facility] [employer] Other 09-13-2023 13:30-0500 Body weight 102.06 kg Hannah Magallanes Other [facility] [employer] Other 09-13-2023 13:30-0500 Body weight 102.05 kg [facility] 09-13-2023 13:30-0500 Diastolic blood pressure 80 mm[Hg] Hannah Magallanes Other [facility] 09-13-2023 13:30-0500 SaO2% (BldA) [Mass fraction] 93 % Hannah Magallanes Other [facility] [employer] Other 09-13-2023 13:30-0500 Systolic blood pressure 118 mm[Hg] Hannah Magallanes Other [facility] 08-13-2023 10:30-0500 Body height 175.26 cm Hannah Magallanes Other [facility] Other 08-13-2023 10:30-0500 Body mass index (BMI) [Ratio] 33.9 kg/m2 Hannah Magallanes Other [facility] Other 08-13-2023 10:30-0500 Body weight 104.15 kg Hannah Magallanes Other [facility] Other 08-13-2023 10:30-0500 Diastolic blood pressure 78 mm[Hg] Hannah Magallanes Other [facility] Other 08-13-2023 10:30-0500 Systolic blood pressure 124 mm[Hg] Hannah Magallanes Other [facility] Other 06-25-2023 08:45-0500 Body height 175.26 cm Hannah Magallanes Other [facility] Other 06-25-2023 08:45-0500 Body mass index (BMI) [Ratio] 33.37 kg/m2 Hannah Magallanes Other [facility] Other 06-25-2023 08:45-0500 Body temperature 96.5 [degF] Hannah Magallanes Other [facility] Other 06-25-2023 08:45-0500 Body weight 102.51 kg Hannah Magallanes Other [facility] Other 06-25-2023 08:45-0500 Diastolic blood pressure 85 mm[Hg] Hannah Magallanes Other [facility] Other 06-25-2023 08:45-0500 Systolic blood pressure 149 mm[Hg] Hannah Magallanes Other [facility] Other 05-28-2023 10:45-0400 Body height 175.26 cm Hannah Magallanes Other [facility] Other 05-28-2023 10:45-0400 Body mass index (BMI) [Ratio] 33.52 kg/m2 Hannah Magallanes Other [facility] Other 05-28-2023 10:45-0400 Body weight 102.97 kg Hannah Magallanes Other [facility] Other 05-28-2023 10:45-0400 Diastolic blood pressure 82 mm[Hg] Hannah Magallanes Other [facility] Other 05-28-2023 10:45-0400 Systolic blood pressure 147 mm[Hg] Hannah Magallanes Other [facility] Other 2023 08:45-0400 Body height 175.26 cm Hannah Magallanes Other [facility] Other 2023 08:45-0400 Body mass index (BMI) [Ratio] 33.52 kg/m2 Hannah Magallanes Other [facility] Other 2023 08:45-0400 Body weight 102.97 kg Hannah Magallanes Other [facility] Other 2023 08:45-0400 Diastolic blood pressure 85 mm[Hg] Hannah Magallanes Other [facility] Other 2023 08:45-0400 Systolic blood pressure 156 mm[Hg] Hannah Magallanes Other [facility] Other 04-30-2023 09:45-0400 Body height 175.26 cm Hannah Magallanes Other [facility] Other 04-30-2023 09:45-0400 Body mass index (BMI) [Ratio] 34.32 kg/m2 Hannah Magallanes Other [facility] Other 04-30-2023 09:45-0400 Body temperature 96.2 [degF] Hannah Magallanes Other [facility] Other 04-30-2023 09:45-0400 Body weight 105.42 kg Hannah Magallanes Other [facility] Other 04-30-2023 09:45-0400 Diastolic blood pressure 78 mm[Hg] Hannah Magallanes Other [facility] Other 04-30-2023 09:45-0400 Respiratory rate 16 /min Hannah Magallanes Other [facility] Other 04-30-2023 09:45-0400 Systolic blood pressure 146 mm[Hg] Hannah Magallanes Other [facility] Other 02-20-2023 09:15-0400 Body height 175.26 cm Hannah Magallanes Other [facility] Other 02-20-2023 09:15-0400 Body mass index (BMI) [Ratio] 33.46 kg/m2 Hannah Magallanes Other [facility] Other 02-20-2023 09:15-0400 Body weight 102.79 kg Hannah Magallanes Other [facility] Other 02-20-2023 09:15-0400 Diastolic blood pressure 77 mm[Hg] Hannah Magallanes Other [facility] Other 02-20-2023 09:15-0400 Systolic blood pressure 131 mm[Hg] Hannah Magallanes Other [facility] Other 01-17-2023 08:45-0400 Body height 175.26 cm Hannah Magallanes Other [facility] Other 01-17-2023 08:45-0400 Body mass index (BMI) [Ratio] 33.37 kg/m2 Hannah Magallanes Other [facility] Other 01-17-2023 08:45-0400 Body weight 102.51 kg Hannah Magallanes Other [facility] Other 01-17-2023 08:45-0400 Diastolic blood pressure 79 mm[Hg] Hannah Magallanes Other [facility] Other 01-17-2023 08:45-0400 Systolic blood pressure 128 mm[Hg] Hannah Magallanes Other [facility] Other 11-23-2022 09:30-0400 Body height 175.26 cm Hannah Magallanes Other [facility] Other 11-23-2022 09:30-0400 Body mass index (BMI) [Ratio] 33.96 kg/m2 Hannah Magallanes Other [facility] Other 11-23-2022 09:30-0400 Body weight 104.33 kg Hannah Magallanes Other [facility] Other 11-23-2022 09:30-0400 Diastolic blood pressure 72 mm[Hg] Hannah Magallanes Other [facility] Other 11-23-2022 09:30-0400 Systolic blood pressure 122 mm[Hg] Hannah Magallanes Other [facility] Other 09-04-2022 11:30-0500 Body height 175.26 cm Hannah Magallanes Other [facility] Other 09-04-2022 11:30-0500 Body mass index (BMI) [Ratio] 33.52 kg/m2 Hannah Magallanes Other [facility] Other 09-04-2022 11:30-0500 Body weight 102.97 kg Hannah Magallanes Other [facility] Other 09-04-2022 11:30-0500 Diastolic blood pressure 80 mm[Hg] Hannah Magallanes Other [facility] Other 09-04-2022 11:30-0500 SaO2% (BldA) [Mass fraction] 95 % Hannah Magallanes Other [facility] Other 09-04-2022 11:30-0500 Systolic blood pressure 122 mm[Hg] Hannah Magallanes Other [facility] Other 02-06-2022 12:45-0400 Body height 175.26 cm Kesha Olexa Other [facility] Other 02-06-2022 12:45-0400 Body mass index (BMI) [Ratio] 31.01 kg/m2 Kesha Olexa Other [facility] Other 02-06-2022 12:45-0400 Body weight 95.26 kg Kesha Olexa Other [facility] Other 05-26-2021 13:15-0400 Body height 175.26 cm Harriet Ginty Other [facility] Other 05-26-2021 13:15-0400 Body mass index (BMI) [Ratio] 31.01 kg/m2 Harriet Ginty Other [facility] Other 05-26-2021 13:15-0400 Body temperature 98.3 [degF] Harriet Ginty Other [facility] Other 05-26-2021 13:15-0400 Body weight 95.26 kg Harriet Ginty Other [facility] Other 05-26-2021 13:46-4388 SaO2% (BldA) [Mass fraction] 96 % Harriet Mo Other [facility] Other Encounters Encounter Date Encounter Type Care Provider Facility Start: 03-18-2024 End: 03-18-2024 ambulatory [facility] Work Phone: Start: 03-18-2024 End: 03-18-2024 Patient encounter procedure [facility] Work Phone: Start: 03-16-2024 End: 03-16-2024 ambulatory Zacarias Pike MD Facility: [facility] Start: 03-03-2024 End: 03-03-2024 ambulatory [facility] Work Phone: Start: 03-03-2024 End: 03-03-2024 Patient encounter procedure [facility] Work Phone: Start: 02-27-2024 Non-patient / Non-visit [facility] [employer] Work Phone: Start: 02-24-2024 End: 02-24-2024 ambulatory Zacarias Pike MD Facility:[facility] Start: 02-03-2024 End: 02-03-2024 ambulatory Zacarias Pike MD Facility:[facility] Start: 01-20-2024 End: 01-20-2024 ambulatory Zacarias Pike MD Facility:[facility] [place] Start: 12-17-2023 End: 12-17-2023 ambulatory [facility] Work Phone: Start: 12-17-2023 End: 12-17-[address] [facility] Work Phone: Start: 12-05-2023 End: 12-05-2023 ambulatory [facility] Work Phone: Start: 12-05-2023 End: 12-05-[address] [facility] Physician [facility] Work Phone: Start: 10-23-2023 Non-patient / Non-visit [facility] Physician [facility] Work Phone: Start: 10-08-2023 Non-patient / Non-visit [facility] Physician [facility] Work Phone: Start: 10-07-2023 End: 10-07-2023 ambulatory BARBIE Tellez [facility] Not Available Start: 09-18-2023 End: 09-18-2023 ambulatory Hannah Sona Other [facility] Other Start: 09-18-2023 Telephone encounter Hannah Sona [facility] Start: 09-13-2023 End: 09-13-2023 ambulatory Hannah Sona Other [facility] Other Start: 09-13-2023 Office outpatient vi sit 15 minutes Hannah Sona [facility] Start: 09-13-2023 End: 09-13-[address] [facility] Physician [facility]- Start: 09-11-2023 Telephone encounter [place] [...] 09-10-2023 End: 09-10-2023 ambulatory Hannah Magallanes Other [facility] Other Start: 09-10-2023 Telephone encounter Hannah Magallanes [facility] Start: 09-06-2023 End: 09-06-2023 ambulatory Hannah Magallanes Other [facility] Other Start: 09-06-2023 Telephone encounter Hannah Magallanes [facility] Start: 09-02-2023 End: 09-02-2023 ambulatory HI POCOS Not Available Start: 08-20-2023 End: 08-20-2023 ambulatory Hannah Magallanes Other [facility] Other Start: 08-20-2023 Telephone encounter Hannah Magallanes [facility] Start: 08-13-2023 End: 08-13-2023 ambulatory Hannah Magallanes Other [facility] Other Start: 08-13-2023 Office outpatient vi sit 25 minutes Hannah Maagllanes [facility] Start: 08-13-2023 Telephone encounter Hannah Magallanes [facility] Start: 08-06-2023 End: 08-06-2023 ambulatory Hannah Magallanes Other [facility] Other Start: 08-06-2023 Telephone encounter Hannah Magallanes [facility] Start: 07-29-2023 End: 07-29-2023 ambulatory HI POCOS Not Available Start: 07-22-2023 End: 07-22-2023 ambulatory Hannah Magallanes Other [facility] Other Start: 07-22-2023 Telephone encounter Hannah Magallanes [facility] Start: 07-19-2023 End: 07-19-2023 ambulatory Hannah Magallanes Other [facility] Other Start: 07-19-2023 Telephone encounter Hannah Magallanes [facility] Start: 07-18-2023 End: 07-18-2023 ambulatory Hannah Magallanes Other [facility] Other Start: 07-18-2023 Telephone encounter Hannah Magallanes [facility] Start: 07-02-2023 End: 07-02-2023 ambulatory Hannah Magallanes Other [facility] Other Start: 07-02-2023 Office outpatient vi sit 15 minutes Hannah Magallanes [facility] Start: 07-02-2023 Telephone encounter Hannah Magallanes [facility] Start: 06-25-2023 End: 06-25-2023 ambulatory Hannah Magallanes Other [facility] Other Start: 06-25-2023 Office outpatient vi sit 15 minutes Hannah Magallanes [facility] Start: 06-21-2023 End: 06-21-2023 ambulatory Hannah Magallanes Other [facility] Other Start: 06-21-2023 Encounter by compute r link Hannah Magallanes [facility] Start: 06-20-2023 End: 06-20-2023 ambulatory Hannah Magallanes Other [facility] Other Start: 06-20-2023 Telephone encounter Hannah Magallanes [facility] Start: 06-17-2023 End: 06-17-2023 ambulatory Hannah Magallanes Other [facility] Other Start: 06-17-2023 Telephone encounter Hannah Magallanes [facility] Start: 06-10-2023 End: 06-10-2023 ambulatory Hannah Magallanes Other [facility] Other Start: 06-10-2023 Telephone encounter Hannah Magallanes [facility] Start: 06-03-2023 End: 06-03-2023 ambulatory Hannah Magallanes Other [facility] Other Start: 06-03-2023 Telephone encounter Hannah Sona [facility] Start: 05-30-2023 End: 05-31-2023 ambulatory Hi Pocos Facility:[facility] Start: 05-30-2023 End: 05-30-2023 Patient encounter procedure Barbie Tellez [facility] Start: 05-28-2023 End: 05-28-2023 ambulatory Hannah Magallanes Other [facility] Other Start: 05-28-2023 Office outpatient vi sit 15 minutes Hannah Magallanes [facility] Start: 2023 End: 2023 ambulatory Hannah Magallanes Other [facility] Other Start: 2023 Office outpatient vi sit 15 minutes Hannah Magallanes [facility] Start: 05-16-2023 End: 05-16-2023 ambulatory Hannah Sona Other [facility] Other Start: 05-16-2023 Telephone encounter Hannah Sona [facility] Start: 04-30-2023 End: 04-30-2023 ambulatory Hannah Sona Other [facility] Other Start: 04-30-2023 Office outpatient vi sit 15 minutes Hannah Magallanes [facility] Start: 04-26-2023 End: 04-26-2023 ambulatory Hannah Magallanes Other [facility] Other Start: 04-26-2023 Telephone encounter Hannah Sona [facility] Start: 04-23-2023 End: 04-23-2023 ambulatory Hannah Magallanes Other [facility] Other Start: 04-23-2023 Telephone encounter Hannah Sona [facility] Start: 03-25-2023 End: 03-25-2023 ambulatory Hannah Magallanes Other [facility] Other Start: 03-25-2023 Telephone encounter Hannah Magallanes [facility] Start: 03-06-2023 End: 03-06-2023 ambulatory Hannah Magallanes Other [facility] Other Start: 03-06-2023 Telephone encounter Hannah Magallanes [facility] Start: 02-20-2023 End: 02-20-2023 ambulatory Hannah Magallanes Other [facility] Other Start: 02-20-2023 Office outpatient vi sit 25 minutes Hannah Sona [facility] Start: 02-05-2023 End: 02-05-2023 ambulatory Hannah Magallanes Other [facility] Other Start: 02-05-2023 Telephone encounter Hannah Magallanes [facility] Start: 01-21-2023 End: 01-21-2023 ambulatory Hannah Magallanes Other [facility] Other Start: 01-21-2023 Telephone encounter Hannah Magallanes [facility] Start: 01-17-2023 End: 01-17-2023 ambulatory Hannah Magallanes Other [facility] Other Start: 01-17-2023 Office outpatient vi sit 15 minutes Hannah Sona [facility] Start: 12-24-2022 End: 12-24-2022 ambulatory Hannah Magallanes Other [facility] Other Start: 12-24-2022 Telephone encounter Hannah Magallanes [facility] Start: 12-03-2022 End: 12-03-2022 ambulatory Hannah Magallanes Other [facility] Other Start: 12-03-2022 Telephone encounter Hannah Sona [facility] Start: 11-27-2022 End: 11-27-2022 ambulatory Hannah Magallanes Other [facility] Other Start: 11-27-2022 Telephone encounter Hannah Magallanes [facility] Start: 11-26-2022 End: 11-26-2022 ambulatory Hannah Magallanes Other [facility] Other Start: 11-26-2022 Telephone encounter Hannah Magallanes [facility] Start: 11-24-2022 End: 11-25-[address] HANNAH MAGALLANES Facility:[facility] Start: 11-23-2022 End: 11-23-2022 ambulatory Hannah Magallanes Other [facility] Other Start: 11-23-2022 Office outpatient vi sit 15 minutes Hannah Magallanes [facility] Start: 11-05-2022 End: 11-05-2022 ambulatory Hannah Magallanes Other [facility] Other Start: 11-05-2022 Telephone encounter Hannah Magallanes [facility] Start: 10-03-2022 End: 10-03-2022 ambulatory Hannah Magallanes Other [facility] Other Start: 10-03-2022 Telephone encounter Hannah Magallanes [facility] Start: 09-04-2022 End: 09-04-2022 ambulatory Hannah Magallanes Other [facility] Other Start: 09-04-2022 Office outpatient vi sit 25 minutes Hannah Magallanes [facility] Start: 07-26-[address] HANNAH MAGALLANES Facil ity:[facility] Start: 07-19-2022 End: 07-20-[address] WILFREDO ENGLE Facility:[facility] Start: 06-07-2022 End: 06-07-[address] HANNAH MAGALLANES Facility:[facility] Start: 03-15-2022 ambulatory KESHA TRUJILLO Facility:[facility] Start: 02-06-2022 End: 02-06-2022 ambulatory Kesha Trujillo Other [facility] Other Start: 02-06-2022 Office outpatient vi sit 25 minutes Kesha Olemartin [facility] Start: 02-02-2022 End: 02-03-2022 ambulatory KESHA TRUJILLO Facility:[facility] Start: 12-28-2021 End: 12-28-[address] HANNAH MAGALLANES Facility:[facility] Start: 12-12-2021 End: 12-13-2021 ambulatory KESHA TRUJILLO [facility] [employer] Other Start: 12-12-2021 Office outpatient ne w 30 minutes Kesha Trujillo [facility] Start: 05-26-2021 Office outpatient vi sit 15 [...] Activity Detail Author Start: 03-18-2024 Patient referral [facility] Work Phone: Start: 10-07-2023 End: 10-07-2023 Patient encounter procedure 10/07/2023 8:00 AM EST Office Visit [facility] [address] [place] [address] PocBarbie cortes DO [address] [place] [address] [facility] [address] Chest WO contrast [facility] Patient referral [facility] Work Phone: XR Pelvis and Hip - bilateral Views [facility] Immunizations Immunization Date Immunization Notes Care Provider Fa jw 06-02-2018 Influenza, injectabl e, Madin Kyleigh Canine Kidney, preservative free, quadrivalent Argentina Clinton PT Work Phone: [facility] 05-17-2017 influenza virus vaccine, split virus (incl. purified surface antigen) Hannah Magallanes Other [facility] [employer] Other 05-17-2017 influenza virus vaccine, unspecified formulation [place] [facility] 05-16-2017 influenza, injectabl e, quadrivalent, preservative free Argentina Clinton PT Work Phone: [facility] 06-28-2016 influenza, injectabl e, quadrivalent, preservative free Argentina Clinton PT Work Phone: [facility] 06-28-2016 tetanus and diphther ia toxoids, adsorbed, preservative free, for adult use (5 Lf of tetanus toxoid and 2 Lf of diphtheria toxoid) Hannah Magallanes Other [facility] 05-25-2015 influenza, seasonal, injectable, preservative free Argentina Clinton PT Work Phone: [facility] 05-25-2015 tetanus and diphther ia toxoids, adsorbed, preservative free, for adult use (5 Lf of tetanus toxoid and 2 Lf of diphtheria toxoid) Hannah Magallanes Other [facility] 06-15-1999 pneumococcal conjuga te vaccine, 7 valent Argentina Clinton PT Work Phone: [facility] Healthcare Payers Date Payer Category Payer Medicaid [id number] 2013 Medicare [id number] 1960 Unknown [id number] 2.16.84 0.1.130355.3.579.2.593 1960 Unknown [id number] 2.16.84 0.1.867830.3.579.2.593 1960 Unknown [id number] 2.16.84 0.1.156405.3.579.2.593 1960 Unknown [id number] 2.16.84 0.1.367903.3.579.2.593 1960 Unknown [id number] 2.16.84 0.1.794923.3.579.2.593 1960 Unknown [id number] 2.16.84 0.1.836545.3.579.2.593 1960 Unknown [id number] 2.16.84 0.1.006128.3.579.2.593 1960 Unknown [id number] 2.16.84 0.1.223820.3.579.2.593 1960 Unknown [id number] 2.16.8 40.1.556076.3.579.2.727 1960 Unknown [id number] 2.16.84 0.1.173504.3.579.2.1259 1960 Unknown [id number] 2.16.84 0.1.207691.3.579.2.1259 1960 Unknown [id number] 2.16.84 0.1.091562.3.579.2.1259 1960 Unknown [id number] 2.16.840 .1.016278.3.579.2.1259 1960 Unknown [id number] 2.16. 840.1.599664.3.579.2.196 1960 Unknown [id number] 2.16. 840.1.032237.3.579.2.196 1960 Unknown [id number] 2.16. 840.1.759632.3.579.2.196 1960 Unknown [id number] 2.16. 840.1.947205.3.579.2.196 1959 Medicaid [id number] 2. 16.840.1.651731.19 1959 Medicare [id number] 2.1 [id number] Self-pay Self Pay [id number] Social History Date Type Detail Facility Start: 09-02-2023 Sex Assigned At [facility] Tobacco smoking status No Smokin g Status Entered [facility] Start: 03-27-2023 Tobacco smoking status NHIS Smokes tobacco daily [facility] Work Phone: History of tobacco use Cigarette Smoker [facility] Start: 03-27-2023 End: 09-02-2023 Cigarettes smoked current (pack per day) - Reported 0.5 [facility] Start: 03-27-2023 Tobacco use and exposure Smokeless tobacco non-user [facility] Start: 09-02-2023 Alcohol intake Lifetime non-drinker (finding) [facility] Start: 03-27-2023 Alcohol Comment Caffine- Soda [facility] Start: 1960 Sex Assigned At Male [facility] Start: 08-21-2023 Gender identity Identifies as male gender (finding) [facility] Start: 08-21-2023 Sexual orientation Heterosexual (finding) [facility] Start: 02-06-2017 Tobacco smoking status NHIS Ex-smoker (finding) [facility] Medical Equipment Procedure Code Equipment Code [...] No attempts to hear back; closing referral. [facility] 10-02-2023 Miscellaneous Notes Formattin g of this note might be different from the original. No attempts to hear back; closing referral. documented in this encounter [facility] 09-13-2023 Evaluation note Encounter Date Diagnosis Assessment Notes Aug, Chronic obstructive pulmonary disease, unspecified (ICD-10 - J44.9) Finish antibiotics and prednisone as prescribed. Denies pulmonary referral at this time. Hasn't smoked since 09/08 and declines chantix or patches. Aug, Current smoker (ICD-10 - F17.200) [facility] Other 01-23-2024 Evaluation note* Encounter Date Diagnosis Assessment Notes Treatment Notes Treatment Clinical Notes Aug, Lumbar radicular pain (ICD-10 - M54.16) [facility] Other 01-19-2024 Evaluation note* Encounter Date Diagnosis Assessment Notes Treatment Notes Treatment Clinical Notes Aug, Lumbar radicular pain (ICD-10 - M54.16) [facility] Other 12-26-2023 Evaluation note* Encounter Date Diagnosis Assessment Notes Treatment Notes Treatment Clinical Notes Jul, Type 2 diabetes mellitus with hyperglycemia, without long-term current use of insulin (ICD-10 - E11.65) [facility] Other 12-26-2023 Evaluation note* Encounter Date Diagnosis [...] T3s after shoulder pain has improved post-operatively. [facility] Other 12-04-2023 Evaluation note* Encounter Date Diagnosis Assessment Notes Treatment Notes Treatment Clinical Notes Jul, Type 2 diabetes mellitus with hyperglycemia, without long-term current use of insulin (ICD-10 - E11.65) [facility] Other 12-01-2023 Evaluation note* Encounter Date Diagnosis Assessment Notes Treatment Notes Treatment Clinical Notes Jul, Type 2 diabetes mellitus with hyperglycemia, without long-term current use of insulin (ICD-10 - E11.65) [facility] Other 11-30-2023 Evaluation note* Encounter Date Diagnosis Assessment Notes Treatment Notes Treatment Clinical Notes Jun, Labral tear of shoulder, right, subsequent encounter (ICD-10 - S43.431D) [facility] Other 11-14-2023 Evaluation note* Encounter Date Diagnosis [...] pain (ICD-10 - R07.9) r/o cardiac cause [facility] Other 11-07-2023 Evaluation note* Encounter Date Diagnosis [...] to decrease dose and possibly discontinue medication. [facility] Other 11-02-2023 Evaluation note* Encounter Date Diagnosis Assessment Notes Treatment Notes Treatment Clinical Notes Jun, Acute pain of right shoulder (ICD-10 - M25.511) [facility] Other 10-30-2023 Evaluation note* Encounter Date Diagnosis Assessment Notes Treatment Notes Treatment Clinical Notes May, Acute pain of right shoulder (ICD-10 - M25.511) [facility] Other 10-23-2023 Evaluation note* Encounter Date Diagnosis Assessment Notes Treatment Notes Treatment Clinical Notes May, Acute pain of right shoulder (ICD-10 - M25.511) [facility] Other 10-16-2023 Evaluation note* Encounter Date Diagnosis Assessment Notes Treatment Notes Treatment Clinical Notes May, Acute pain of right shoulder (ICD-10 - M25.511) [facility] Other 10-10-2023 Evaluation note* Encounter Date Diagnosis Assessment Notes Treatment Notes Treatment Clinical Notes May, Acute pain of right shoulder (ICD-10 - M25.511) MRI and surgery planning pending. Pt understands this is a controlled substance and to call in 1 week w update on treatment plan. May, Bronchitis (ICD-10 - J40) Finish antibiotic, rest, hydrate Steroids for wheezing. [facility] Other 10-04-2023 Evaluation note* Encounter Date Diagnosis Assessment Notes Treatment Notes Treatment Clinical Notes May, Acute pain of right shoulder (ICD-10 - M25.511) Reviewed [place] and discussed short term plan of increase in pain medication. He is due for a refill of the T3s presently. Stop them, replace w norco. Pt understands weekly prescription and will need to d/c after anticipated surgery. [facility] Other 09-12-2023 Evaluation note* Encounter Date Diagnosis [...] office and the ER visit on 04/26 [facility] Other 07-05-2023 Evaluation note* Encounter Date Diagnosis [...] and will need less prn pain med. [facility] Other 06-01-2023 Evaluation note* Encounter Date Diagnosis [...] left shoulder (ICD-10 - M25.512) as above. [facility] Other 04-17-2023 Evaluation note* Encounter Date Diagnosis Assessment Notes Treatment Notes Treatment Clinical Notes Nov, Bronchitis (ICD-10 - J40) [facility] Other 04-11-2023 Evaluation note* Encounter Date Diagnosis Assessment Notes Treatment Notes Treatment Clinical Notes Nov, Disc degeneration, lumbar (ICD-10 - M51.36) Nov, Lumbar radicular pain (ICD-10 - M54.16) [facility] Other 04-07-2023 Evaluation note* Encounter Date Diagnosis [...] quit smoking. Pt verbalizes understanding and agreement. [facility] Other 02-15-2023 Evaluation note* Encounter Date Diagnosis Assessment Notes Treatment Notes Treatment Clinical Notes Sep, Lumbar radicular pain (ICD-10 - M54.16) [facility] Other 01-17-2023 Evaluation note* Encounter Date Diagnosis [...] is outlined on the test result page. [facility] Other 10-20-2022 NoteIndication: Calculus in kidney. Comparison: [...] of infection, hardware pullout, cuff repair failure, custodial pain and stiffness are well known problems [...] of repair, infection and wound healing delays. [facility] Other 04-26-2022 NotePROCEDURE: XR SHOULDER LT 2V or > COMPARISON: None. HISTORY: Pain of left shoulder joint FINDINGS: BONES:No acute fracture or dislocation. 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 No visible soft tissue swelling. EFFUSION:None visible. OTHER: Negative. IMPRESSION: Mild osteoarthritis Electronically authenticated by: BARBIE MEMBRENO Date: [facility]12-12 [facility] Encounter Date Diagnosis Assessment Notes [...] pain of left shoulder (ICD-10 - M25.512) [facility] Other 10-08-2021 Evaluation note* Encounter Date Diagnosis [...] as needed for cough. Advised patient that [place] contains antihistamine and cough suppressant and to be cautious using other OTC cold medications. Patient to follow up with PCP if symptoms do not improve. Immediate eval if SOB, difficulty breathing, chest pain, dizziness, or other concerning symptoms. Patient verbalizes understanding and is agreeable to treatment plan [facility] Other Evaluation + Plan note No data available for this section [facility] [employer] Other Evaluation note* Diagnosis Onset Date Resolution Status Arthralgia acute Lumbar pain acute Type II diabetes mellitus ac [facility] [place] Work Phone: Evaluation note* Diagnosis Onset Date Resolution Status Arthralgia acute Lumbar pain acute Type II diabetes mellitus ac kitty [facility]wk Bilateral hip pain [facility] Work Phone: Evaluation note* Diagnosis Onset Date Resolution Status Arthralgia acute Lumbar pain acute Type II diabetes mellitus ac kitty hawk Bilateral hip pain acute Lumbar pain [facility] Work Phone: Evaluation note* Diagnosis Onset Date Resolution Status Submandibular abscess acute Chronic obstructive pulmonary disease, unspecified acute Esophageal abnormality acute Mass of left submandibular region acute [facility] Work Phone: History general Narrative - Reported* Type Description Date Medical History Asthma Medical History skin cancer-lip Surgical History Left lung biopsy 1977 Surgical History L4 and L5 disc fusion 1984 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 Surgical History carpal tunnel release 2016 Surgical History tonsillectomy Hospitalization History 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 Hospitalization History pneumonia [facility] Other Hospital Discharge instructions No data available for this section [facility]* Referral to ENT Time Frame: 03/18/24, Location: None Selected [facility] Work Phone: Progress note No data available for this section [facility] Summary Purpose Family History No Family History [...] Epigastric abdominal pain (R10.13) Referral Organization [facility] [employer] Referring Provider First Name Hannah Referring Provider Last Name Sona Referring Provider Specialty [facility] [employer] Referred Organization [facility] Referred Provider Sai Martinez Referred Address ,[place], [place],[address] Referred Provider Specialty Surgery Referral Priority Routine General Notes Es Camilo 11:38:02 AM >received today, attachments made, notes locked, referral faxed Reason 01/28/23 Access Or tho - B shoulder pain L>R - hopes for injections. Diagnosis 1 Pain in right should er (M25.511) Referral Organization [facility] [employer] Referring Provider First Name Hannah Referring Provider Last Name Sona Referring Provider Specialty [facility] [employer] Referred Organization [facility] Referred Provider Barbie Tapia Referred Address ,[place], [place],[address] Referred Provider Specialty Orthopaedic Surgery Referral Priority Routine Referral Appointment Date 2023-01-28 General Notes RazafaithAbel burtya 03:00:30 PM >received today, notes note locked, will fax when done Es Camilo 01/21/2023 10:35:11 AM >sent TE to have notes locked RazafaithjavedsE 01/22/2023 09:35:27 AM >notes locked, and faxed [...] in right should er (M25.511) Referral Organization [facility] omar Referring Provider First Name Hannah Referring Provider Last Name Sona Referring Provider Specialty [facility] Referred Organization [facility] Referred Provider Barbie aTpia Referred Address ,[place], [place],[address] Referred Provider Specialty Orthopaedic Surgery Referral Priority [...] section and content) DATE CREATED AUTHOR 02/10/2022 [facility] DATE CREATED AUTHOR AUTHOR'S ORGANIZ ATION 12/04/2022 [facility] DATE CREATED AUTHOR AUTHOR'S ORGANIZ ATION 06/01/2023 [facility] DATE CREATED AUTHOR AUTHOR'S ORGANIZ ATION 10/07/2023 [facility] DATE CREATED AUTHOR AUTHOR'S ORGANIZ ATION 03/31/2024 [facility] Patient Care team informatio n (unrecognized section [...] Team Status: Inactive Member Role Status Dates aHnnah Magallanes MD Primary Care Provide r, Attending [...] Provider Active Start : October 23, 2023 Support Group Manager Relationship Specialty Start Date End Date Hannah Magallanes MD [address] [place] [id number] PCP - General Family Medicine 01/23/23 Team [...] BE BASED ON THE PRIMARY CLINICAL RECORDS. [employer] provides no warranty or guarantee of the accuracy or completeness of information in this document.
== END 2024-04-08 08:23 | disposition home or self-care (01) ==
PROVIDERS: PCP Family Medicine; Visit Provider Otolaryngology
DX: R13.14 Dysphagia, pharyngoesophageal phase (principal)
CPT/HCPCS: 74220; 76120

== ENCOUNTER 2024-05-07 08:21 | Outpatient (OUT) | payer MEDICARE, SELFPAY ==
--- OUTSIDE RECORDS SUMMARY | 2024-05-07 08:27 | XMS_ITS | CCD ---
Author Organization [facility] Care Team Providers Care Stationary Engineer Apprentice Name Role Phone Ronnie Kesha Unavailable Chepe Harriet Unavailable Hannah Magallanes Unavailable SONA, DR HANNAH Jovel Admitting Unavailable MAGALLANES, DR HANNAH Jovel Attending Unavailable MAGALLANES, DR HANNAH Jovel Primary Care Unavailable MAGALLANES, DR HANNAH Jovel Consulting Unavailable TAVERAS, RUBI Consulting Unavailable OLEXA, KESHA Admitting Unavailable OLEXA, KESHA Attending Unavailable MAGALLANES, DR HANNAH Jovel Primary Care Unavailable CHERRYVALE, DR BARBIE Goldberg Consulting Unavailable OLEXA, KESHA [...] Unavailable HAY ., DR DESIR Admitting Unavailable HAY ., DR DESIR Attending Unavailable HAY ., [...] Care Provider POCDORON, BARBIE Tellez Attending Unavailable POCOS, BARBIE Tellez Referring Unavailable POCOS, BARBIE Tellez Attending Unavailable TIMMIS, MALATHI H Attending Unavailable HANNAH MAGALLANES Referring Unavailable BARBIE TAPIA Attending Unavailable Giedraitis , Zacarias Miranda Attending Unavailable Giedraitis , Zacarias Miranda Attending Unavailable Giedraitis , Zacarias Miranda Attending Unavailable Giedraitis , Zacarias Miranda Attending Unavailable Giedraitis MD, Zacarias Miranda Attending Unavailable Allergies Allergy Classification Reported Allergen(s) Allergy Type Date of Onset Reaction(s) Facility (20 sources) Ibuprofen Drug Allergy [facility] Divided Other (20 sources) olodaterol / tiotropium Drug Allergy shortness of breath [facility] Divided Other (20 sources) CT Scan dye Propensity to adverse reactions [facility] Divided Other (6 sources) Ibuprofen Drug Allergy 08-19-18 80 [facility] Repository (2 sources) Iodine (And Iodine Containting Drugs) Drug allergy (disorder) 09-07-19 16 [facility] Repository (1 source) NSAIDs Drug allergy (disorder) [facility] Repository (20 sources) fentaNYL Drug Allergy 12-05-19 24 Unknown, [facility] (4 sources) Ibuprofen Drug Allergy 01-15-20 15 [facility] (20 sources) Ofloxacin Drug Allergy 12-05-19 24 Unknown, [facility] (3 sources) zafirlukast Drug Allergy 01-15-[address] [facility] Divided Other (20 sources) Zafirlukast *ANTIASTHMATIC AND BRONCHODILATOR AGEN Propensity to adverse reactions Unknown [facility] Other (20 sources) Ibuprofen & Diet Manage Prod *ANALGESICS - ANTI-IN Propensity to adverse reactions Unknown [facility] Other (3 sources) Allergies Reconciled Propensity to adverse reactions Unknown [facility] Other (20 sources) Iodinated contrast media (substance) Drug allergy 06-03-20 19 Rash [facility] Other (3 sources) patient allergy list reviewed by nurse or physicia Propensity to adverse reactions 10-05-19 16 Comment:Done [facility] Other (4 sources) olodaterol Drug Allergy 12-05-19 24 shortness of breath [facility] (4 sources) tiotropium Drug Allergy 12-05-19 24 shortness of breath [facility] (4 sources) Iodinated Contrast Media Allergy to substance 12-05-19 [facility] (4 sources) Ibuprofen & Diet Manage Prod * Allergy to substance 12-04-19 24 [facility] (4 sources) Zafirlukast *ANTIASTHMATIC AND Allergy to substance 12-04-19 [facility] Medications Current Medications Medication Drug Class(es) [...] as needed Orally every 6 hrs Active [id number] 200 actuat albuterol 0.09 mg/actuat metered dose [...] Start: 11-23-2022 take 2 tablets by mo [facility] every twenty-four hours predniSONE 20 MG [...] days May, Active Start: 2023 HYDROcodone-ac etaminophen ([place]) 10-325 MG tablet Start: 2023 take 1 [...] 30 mg oral tablet (5 sources) Uncompetitive E-trxwhj-M-aspartate Receptor Antagonist, Sigma-1 Agonist Start: 05-26-2021 take 1 tablet by mouth every eight hours [place] DMT 30-30 MG 1 tablet Orally every [...] 8:39am Start: 02-20-2023 take 1 capsule by [facility] every twenty-four hours Cymbalta 60 MG 1 [...] Other residential (current) drug therapy; Translations: [OTH ELECTROLYSIS INVESTIGATOR CURRENT DRUG THERAPY] Onset: 12-29-2021 Episodic Other [...] Basophils (Bld) [#/Vol] 0.1 10 3/uL 0.0-0.1 [facility] Basophils/100 WBC Auto (Bld) on 02-27-2024 Basophils/100 WBC (Bld) 0.5 % 0.2-2.0 [facility] Eosinophils/100 WBC Auto (Bl d)on 02-27-2024 Eosinophils/100 WBC (Bld) 2.5 % 0.9-7.0 [facility] Erythrocyte distribution wid th Auto (RBC) [Ratio]on 02-27-2024 Erythrocyte distribution width (RBC) [Ratio] 13.5 % 11.0-15.0 [facility] Estimated glomerular filtrat ion rate (GFR) non- Americanon 02-27-2024 GFR/1.73 sq M.predicted among non-blacks MDRD (S/P/Bld) [Vol rate/Area] mL/min/{1.73_m2} >=60 [facility] Hematocrit Auto (Bld) [Volum e fraction]on 02-27-2024 Hematocrit (Bld) [Volume fraction] 47.1 % 42.0-54.0 [facility] Hemoglobin [Mass/volume] in Bloodon 02-27-2024 Hemoglobin (Bld) [Mass/Vol] 15.5 g/dL 14.0-18.0 [facility] Laboratory - Chemistry and C hemistry - challengeon 02-27-2024 Calcium [Mass/Vol] 8.9 mg/dL 8.5-10.1 [facility] Chloride [Moles/Vol] 98 mmol/L 98-107 [facility] CO2 [Moles/Vol] 28.1 mmol/L 21.0-32.0 [facility] Creatinine [Mass/Vol] 0.86 mg/dL 0.70-1.30 [facility] GFR/1.73 sq M.predicted MDRD (S/P/Bld) [Vol rate/Area] mL/min/{1.73_m2} >=60 [facility] Glucose [Mass/Vol] 237 mg/dL High 74-106 [facility] Lactate [Moles/Vol] 1.3 mmol/L 0.4-2.0 [facility] Potassium [Moles/Vol] 4.4 mmol/L 3.5-5.1 [facility] Sodium [Moles/Vol] 130 mmol/L Low 136-145 [facility] Urea nitrogen [Mass/Vol] 21.0 mg/dL High 7.0-18.0 [facility] Urea nitrogen/Creatinine [Mass ratio] 24.4 mg/mg [facility] Laboratory - Hematology and Cell countson 02-27-2024 Immature granulocytes/100 WBC (Bld) 0.3 % 0.0-0.5 [facility] Leukocytes [#/volume] correc jean claude for nucleated erythrocytes in Blood by Automated counon 02-27-2024 WBC corrected for nucl RBC Auto (Bld) [#/Vol] 9.3 10 3/uL 4.0-11.0 [facility] Lymphocytes Auto (Bld) [#/Vo l]on 02-27-2024 Lymphocytes (Bld) [#/Vol] 2.4 10 3/uL 1.2-3.8 [facility] Lymphocytes/100 WBC Auto (Bl d)on 02-27-2024 Lymphocytes/100 WBC (Bld) 25.5 % 20.5-60.0 [facility] MCH Auto (RBC) [Entitic mass ]on 02-27-2024 MCH (RBC) [Entitic mass] 29.1 pg 25.9-34.0 [facility] MCHC Auto (RBC) [Mass/Vol]on 02-27-2024 MCHC (RBC) [Mass/Vol] 32.9 g/dL 29.9-35.2 [facility] MCV Auto (RBC) [Entitic vol] on 02-27-2024 MCV (RBC) [Entitic vol] 88.5 fL 80.0-94.0 [facility] Monocytes Auto (Bld) [#/Vol] on 02-27-2024 Monocytes (Bld) [#/Vol] 1.1 10 3/uL High 0.3-0.8 [facility] Monocytes/100 WBC Auto (Bld) on 02-27-2024 Monocytes/100 WBC (Bld) 12.0 % 1.7-12.0 [facility] Neutrophils Auto (Bld) [#/Vo l]on 02-27-2024 Neutrophils (Bld) [#/Vol] 5.5 10 3/uL 1.4-6.5 [facility] Neutrophils/100 WBC Auto (Bl d)on 02-27-2024 Neutrophils/100 WBC (Bld) 59.2 % 43.0-75.0 [facility] No Panel Informationon 02-26 Eosinophils # (Auto) 0.2 10 3/uL 0.0-0.7 [facility] Immature Granulocyte # (Auto) 0.03 10 3/uL 0.00-0.03 [facility] Platelet mean volume Auto (B ld) [Entitic vol]on 02-27-2024 Platelet mean volume (Bld) [Entitic vol] 8.8 fL Low 9.5-13.5 [facility] Platelets Auto (Bld) [#/Vol] on 02-27-2024 Platelets (Bld) [#/Vol] 288 10 3/uL 150-450 [facility] RBC Auto (Bld) [#/Vol]on RBC (Bld) [#/Vol] 5.32 10 6/uL 4.70-6.10 [facility] Serum or plasma anion gap de terminationon 02-27-2024 Anion gap [Moles/Vol] 8.3 mmol/L [facility] Basophils Auto (Bld) [#/Vol] on 12-05-2023 Basophils (Bld) [#/Vol] 0.1 10 3/uL 0.0-0.1 [facility] Basophils/100 WBC Auto (Bld) on 12-05-2023 Basophils/100 WBC (Bld) 0.9 % 0.2-2.0 [facility] Eosinophils/100 WBC Auto (Bl d)on 12-05-2023 Eosinophils/100 WBC (Bld) 2.7 % 0.9-7.0 [facility] Erythrocyte distribution wid th Auto (RBC) [Ratio]on 12-05-2023 Erythrocyte distribution width (RBC) [Ratio] 13.1 % 11.0-15.0 [facility] Estimated glomerular filtrat ion rate (GFR) non- Americanon 12-05-2023 GFR/1.73 sq M.predicted among non-blacks MDRD (S/P/Bld) [Vol rate/Area] mL/min/{1.73_m2} >=60 [facility] Glucose mean value [Mass/vol ume] in Blood Estimated from glycated hemoglobinon 12-05-2023 Average glucose Estimated from glycated hemoglobin (Bld) [Mass/Vol] 171 mg/dL [facility] Hematocrit Auto (Bld) [Volum e fraction]on 12-05-2023 Hematocrit (Bld) [Volume fraction] 48.9 % 42.0-54.0 [facility] Hemoglobin [Mass/volume] in Bloodon 12-05-2023 Hemoglobin (Bld) [Mass/Vol] 16.0 g/dL 14.0-18.0 [facility] Laboratory - Chemistry and C hemistry - challengeon 12-05-2023 Calcium [Mass/Vol] 9.7 mg/dL 8.5-10.1 [facility] Chloride [Moles/Vol] 102 mmol/L 98-107 [facility] CO2 [Moles/Vol] 27.6 mmol/L 21.0-32.0 [facility] Creatinine [Mass/Vol] 1.01 mg/dL 0.70-1.30 [facility] GFR/1.73 sq M.predicted MDRD (S/P/Bld) [Vol rate/Area] mL/min/{1.73_m2} >=60 [facility] Glucose [Mass/Vol] 156 mg/dL High 74-106 [facility] Potassium [Moles/Vol] 4.4 mmol/L 3.5-5.1 [facility] Sodium [Moles/Vol] 139 mmol/L 136-145 [facility] Urea nitrogen [Mass/Vol] 13.0 mg/dL 7.0-18.0 [facility] Urea nitrogen/Creatinine [Mass ratio] 12.9 mg/mg [facility] Laboratory - Hematology and Cell countson 12-05-2023 ESR (Bld) [Velocity] 17 mm/h <=20 [facility] HbA1c (Bld) [Mass fraction] 7.6 % High 4.5-6.2 [facility] Comment on above: ADA RECOMMENDED LIMI T 4.0 - 6.0ADA THERAPEUTIC TARGET < 7.0ACTION SUGGESTED> 7.0 Immature granulocytes/100 WBC (Bld) 0.4 % 0.0-0.5 [facility] Leukocytes [#/volume] correc jean claude for nucleated erythrocytes in Blood by Automated counon 12-05-2023 WBC corrected for nucl RBC Auto (Bld) [#/Vol] 7.7 10 3/uL 4.0-11.0 [facility] Lymphocytes Auto (Bld) [#/Vo l]on 12-05-2023 Lymphocytes (Bld) [#/Vol] 2.4 10 3/uL 1.2-3.8 [facility] Lymphocytes/100 WBC Auto (Bl d)on 12-05-2023 Lymphocytes/100 WBC (Bld) 31.2 % 20.5-60.0 [facility] MCH Auto (RBC) [Entitic mass ]on 12-05-2023 MCH (RBC) [Entitic mass] 28.5 pg 25.9-34.0 [facility] MCHC Auto (RBC) [Mass/Vol]on 12-05-2023 MCHC (RBC) [Mass/Vol] 32.7 g/dL 29.9-35.2 [facility] MCV Auto (RBC) [Entitic vol] on 12-05-2023 MCV (RBC) [Entitic vol] 87.0 fL 80.0-94.0 [facility] Monocytes Auto (Bld) [#/Vol] on 12-05-2023 Monocytes (Bld) [#/Vol] 0.7 10 3/uL 0.3-0.8 [facility] Monocytes/100 WBC Auto (Bld) on 12-05-2023 Monocytes/100 WBC (Bld) 9.5 % 1.7-12.0 [facility] Neutrophils Auto (Bld) [#/Vo l]on 12-05-2023 Neutrophils (Bld) [#/Vol] 4.2 10 3/uL 1.4-6.5 [facility] Neutrophils/100 WBC Auto (Bl d)on 12-05-2023 Neutrophils/100 WBC (Bld) 55.3 % 43.0-75.0 [facility] No Panel Informationon 12-04 Eosinophils # (Auto) 0.2 10 3/uL 0.0-0.7 [facility] Immature Granulocyte # (Auto) 0.03 10 3/uL 0.00-0.03 [facility] Platelet mean volume Auto (B ld) [Entitic vol]on 12-05-2023 Platelet mean volume (Bld) [Entitic vol] 8.6 fL Low 9.5-13.5 [facility] Platelets Auto (Bld) [#/Vol] on 12-05-2023 Platelets (Bld) [#/Vol] 330 10 3/uL 150-450 [facility] RBC Auto (Bld) [#/Vol]on RBC (Bld) [#/Vol] 5.62 10 6/uL 4.70-6.10 [facility] Serum or plasma anion gap de terminationon 12-05-2023 Anion gap [Moles/Vol] 13.8 mmol/L [facility] Magnesiumon 07-02-2023 Magnesium [Mass/Vol] 2.1641654 mg/dL Normal 1.8-2.4 mg/dL [facility] Other Magnesium see note [facility] Other MRI Shoulder w/o Contrast [facility] 05-31-2023 MRI Shoulder w/o Contrast Right Exam Date/Time: 05/30/2023 14:25 EDT Reason for Exam: [id number] Report IMPRESSION: Full-thickness rotator cuff tearing involving [...] Signed by: Ian Singh MD Transcribed by: TAMAAR Technologist: STELLA Technical Comments None Normal [facility] Consent for Treatmenton 05-19 Consent for Treatment [id number] .00TIFF Normal [facility] RAD - MRI Screening Formon RAD - MRI Screening Form [id number]#1. 00TIFF Normal [facility] Physician Orderon 05-09-2023 Physician Order [id number]# 1.00CD:127 Normal [facility] XR CHEST 2 Von 11-24-2022 XR [...] by: RUBI TAVERAS Date: 2022-11-24 17:17 Normal [facility] CT LUNG CANCER SCREENINGon 1 [...] 06-07-2022 BASO # 0.1 103/ul Normal 0.0-0.1 [facility] Comment on above: Performed By: #### C BC #### [facility] [address] [place] [address] Dr. Eran Chacon Basophils/100 WBC (Bld) 0.6 % Normal 0.2-2.0 [facility] Comment on above: Performed By: #### C BC #### [facility] [address] [place] [address] Dr. Eran Chacon EO # 0.3 103/ul Normal 0.0-0.7 [facility] Comment on above: Performed By: #### C BC #### [facility] [address] [place] [address] Dr. Eran Chacon Eosinophils/100 WBC (Bld) 3.3 % Normal 0.9-7.0 [facility] Comment on above: Performed By: #### C BC #### [facility] [address] [place] [address] Dr. Eran Chacon Erythrocyte distribution width (RBC) [Ratio] 12.9 % Normal 11.0-15.0 [facility] Comment on above: Performed By: #### C BC #### [facility] [address] [place] [address] Dr. Eran Chacon Hematocrit (Bld) [Volume fraction] 47.7 % Normal 42.0-54.0 [facility] Comment on above: Performed By: #### C BC #### [facility] [address] [place] [address] Dr. Eran Chacon Hemoglobin (Bld) [Mass/Vol] 15.9 g/dL Normal 14.0-18.0 [facility] Comment on above: Performed By: #### C BC #### [facility] [address] [place] [address] Dr. Eran Chacon IG # 0.02 10e3/ul Normal 0.00-0.03 [facility] Comment on above: Performed By: #### C BC #### [facility] [address] [place] [address] Dr. Eran Chacon IG % 0.2 % Normal 0.0-0.5 [facility] Comment on above: Performed By: #### C BC #### [facility] [address] [place] [address] Dr. Eran Chacon LYMPH # 3.4 103/ul Normal 1.2-3.8 [facility] Comment on above: Performed By: #### C BC #### [facility] [address] [place] [address] Dr. Eran Chacon Lymphocytes/100 WBC (Bld) 34.5 % Normal 20.5-60.0 [facility] Comment on above: Performed By: #### C BC #### [facility] [address] [place] [address] Dr. Eran Chacon MANUAL DIFF REQ NO Normal [facility] Comment on above: Performed By: #### C BC #### [facility] [address] [place] [address] Dr. Eran Chacon MCH (RBC) [Entitic mass] 29.6 pg Normal 25.9-34.0 [facility] Comment on above: Performed By: #### C BC #### [facility] [address] [place] [address] Dr. Eran Chacon MCHC (RBC) [Mass/Vol] 33.3 g/dL Normal 29.9-35.2 [facility] Comment on above: Performed By: #### C BC #### [facility] [address] [place] [address] Dr. Eran Chacon MCV (RBC) [Entitic vol] 88.8 fL Normal 80.0-94.0 [facility] Comment on above: Performed By: #### C BC #### [facility] [address] [address] [address] Eran Chacon MONO # 0.9 103/ul Critically high 0.3-0.8 [facility] Comment on above: Performed By: #### C BC #### [facility] [address] [place] [address] Dr. Eran Chacon Monocytes/100 WBC (Bld) 9.3 % Normal 1.7-12.0 [facility] Comment on above: Performed By: #### C BC #### [facility] [address] [place] [address] Dr. Eran Chacon NEUT # 5.2 103/ul Normal 1.4-6.5 [facility] Comment on above: Performed By: #### C BC #### [facility] [address] [place] [address] Dr. Eran Chacon Neutrophils/100 WBC (Bld) 52.1 % Normal 43.0-75.0 [facility] Comment on above: Performed By: #### C BC #### [facility] [address] [place] [address] Dr. Eran Chacon Platelet mean volume (Bld) [Entitic vol] 8.8 fL Critically low 9.5-13.5 [facility] Comment on above: Performed By: #### C BC #### [facility] [address] [place] [address] Dr. Eran Chacon PLT 287 103/ul Normal 150-450 [facility] Comment on above: Performed By: #### C BC #### [facility] [address] [place] [address] Dr. Eran Chacon RBC 5.37 106/ul Normal 4.70-6.10 [facility] Comment on above: Performed By: #### C BC #### [facility] [address] [place] [address] Dr. Eran Chacon WBC 9.9 103/ul Normal 4.0-11.0 [facility] Comment on above: Performed By: #### C BC #### [facility] [address] [place] [address] Dr. Eran Chacon ER URINE PROFILEon 2 Bilirubin Ql (U) Negative Normal NEGATIVE [facility] Comment on above: Performed By: #### Med PIERRER, UMICRO #### [facility] [address] [place] [address] Dr. Eran Chacon Clarity (U) CLEAR Normal CLEAR [facility] Comment on above: Performed By: #### Med SHER, UMICRO #### [facility] [address] [place] [address] Dr. Eran Chacon Color (U) YELLOW Normal YELLOW [facility] Comment on above: Performed By: #### Med SHER UMICRO #### [facility] [address] [place] [address] Dr. Eran Chacon ERUSOLANGE A micrscopic examination will be performed if indicated. Normal [facility] Comment on above: Performed By: #### Med SHER UMICRO #### [facility] [address] [place] [address] Dr. Eran Chacon Glucose Ql (U) 500 mg/dl Abnormal NEGATIVE [facility] Comment on above: Performed By: #### Med SHER, UMICRO #### [facility] [address] [place] [address] Dr. Eran Chacon Hemoglobin Ql (U) TRACE-INTACT Abnormal NEGATIVE [facility] Comment on above: Performed By: #### Med SHER UMICRO #### [facility] [address] [place] [address] Dr. Eran Chacon Ketones Ql (U) Negative Normal NEGATIVE [facility] Comment on above: Performed By: #### Med SHER UMICRO #### [facility] [address] [place] [address] Dr. Eran Chacon LEUKOCYTES Negative Normal NEGATIVE [facility] Comment on above: Performed By: #### HANNA BATES #### [facility] [address] [place] [address] Dr. Eran Chacon Nitrite Ql (U) Negative Normal NEGATIVE [facility] Comment on above: Performed By: #### HANNA BATES #### [facility] [address] [place] [address] Dr. Eran Chacon pH (U) 6.0 [pH] Normal 5-9 [facility] Comment on above: Performed By: #### HANNA BATES #### [facility] [address] [place] [address] Dr. Eran Chacon SPEC GRAVITY 1.025 Normal 1.005-<=1.025 [facility] Comment on above: Performed By: #### HANNA BATES #### [facility] [address] [place] [address] Dr. Eran Chacon UA PROTEIN Negative Normal NEGATIVE/ TRACE [facility] Comment on above: Performed By: #### HANNA BATES #### [facility] [address] [place] [address] Dr. Eran Chacon UR MICRO IND INDICATED Normal [facility] Comment on above: Performed By: #### HANNA BATES #### [facility] [address] [place] [address] Dr. Eran Chacon Urobilinogen Qn (U) 0.2 {Aureliano'U}/dL Normal 0.2 - 1. 0 [facility] Comment on above: Performed By: #### HANNA BATES #### [facility] [address] [place] [address] Dr. Eran Chacon PROF 14(COMP METB)on 022 Albumin [Mass/Vol] 4.0 g/dL Normal 3.4-5.0 [facility] Comment on above: Performed By: #### C MP #### [facility] [address] [place] [address] Dr. Eran Chacon Albumin/Globulin [Mass ratio] 1.2 {ratio} Normal [facility] Comment on above: Performed By: #### C MP #### [facility] [address] [place] [address] Dr. Eran Chacon ALP [Catalytic activity/Vol] 104 U/L Normal 46-116 [facility] Comment on above: Performed By: #### C MP #### [facility] [address] [place] [address] Dr. Eran Chacon ALT [Catalytic activity/Vol] 28 U/L Normal 16-63 [facility] Comment on above: Performed By: #### C MP #### [facility] [address] [place] [address] Dr. Eran Chacon Anion gap [Moles/Vol] 7.2 mmol/L Normal [facility] Comment on above: Performed By: #### C MP #### [facility] [address] [place] [address] Dr. Eran Chacon AST [Catalytic activity/Vol] 14 U/L Critically low 15-37 [facility] Comment on above: Performed By: #### C MP #### [facility] [address] [place] [address] Dr. Eran Chacon Bilirubin [Mass/Vol] 0.4 mg/dL Normal 0.2-1.0 [facility] Comment on above: Performed By: #### C MP #### [facility] [address] [place] [address] Dr. Eran Chacon Calcium [Mass/Vol] 9.0 mg/dL Normal 8.5-10.1 [facility] Comment on above: Performed By: #### C MP #### [facility] [address] [place] [address] Dr. Eran Chacon Chloride [Moles/Vol] 103 mmol/L Normal 98-107 [facility] [facility] Comment on above: Performed By: #### C MP #### [facility] [address] [place] [address] Dr. Eran Chacon CO2 [Moles/Vol] 30.0 mmol/L Normal 21.0-32.0 [facility] Comment on above: Performed By: #### C MP #### [facility] [address] [address] [address] Eran Chacon Creatinine [Mass/Vol] 0.85 mg/dL Normal 0.70-1.30 [facility] Comment on above: Performed By: #### C MP #### [facility] [address] [address] [address] Eran Chacon EGFR-AF SUDANESE >60 Normal >=60 [facility] Comment on above: Performed By: #### C MP #### [facility] [address] [address] [address] Eran Chacon EGFR-NON AF SUDANESE >60 Normal >=60 [facility] Comment on above: Performed By: #### C MP #### [facility] [address] [place] [address] Dr. Eran Chacon Globulin (S) [Mass/Vol] 3.3 g/dL Normal [facility] Comment on above: Performed By: #### C MP #### [facility] [address] [place] [address] Dr. Eran Chacon Glucose [Mass/Vol] 165 mg/dL Critically high 74-106 [facility] Comment on above: Performed By: #### C MP #### [facility] [address] [place] [address] Dr. Eran Chacon Potassium [Moles/Vol] 4.2 mmol/L Normal 3.5-5.1 [facility] Comment on above: Performed By: #### C MP #### [facility] [address] [place] [address] Dr. Eran Chacon Protein [Mass/Vol] 7.3 g/dL Normal 6.4-8.2 [facility] Comment on above: Performed By: #### C MP #### [facility] [address] [place] [address] Dr. Eran Chacon Sodium [Moles/Vol] 136 mmol/L Normal 136-145 [facility] Comment on above: Performed By: #### C MP #### [facility] [address] [place] [address] Dr. Eran Chacon Urea nitrogen [Mass/Vol] 10.0 mg/dL Normal 7.0-18.0 [facility] Comment on above: Performed By: #### C MP #### [facility] [address] [place] [address] Dr. Eran Chacon Urea nitrogen/Creatinine [Mass ratio] 11.8 mg/mg Normal [facility] Comment on above: Performed By: #### C MP #### [facility] [address] [place] [address] Dr. Eran Chacon URINE MICROSCOPIC ONLYon BACTERIA NONE SEEN Normal NONE SEEN [facility] Comment on above: Performed By: #### Med SHER UMICRO #### [facility] [address] [place] [address] Dr. Eran Chacon Bacteria identified Cx Nom (U) NOT INDICATED Normal [facility] Comment on above: Performed By: #### Med SHER UMICRO #### [facility] [address] [place] [address] Dr. Eran Chacon CAST NONE SEEN Normal NONE SEEN [facility] Comment on above: Performed By: #### Med SHER UMICRO #### [facility] [address] [place] [address] Dr. Eran Chacon Crystals LM Nom (Urine sed) NONE SEEN Normal NONE SEEN [facility] Comment on above: Performed By: #### Med SHER UMICRO #### [facility] [address] [place] [address] Dr. Eran Chacon Epithelial cells LM Ql (Urine sed) RARE Normal NONE SEEN /RARE [facility] Comment on above: Performed By: #### Med SHER UMICRO #### [facility] [address] [place] [address] Dr. Eran Chacon MUCOUS NONE SEEN Normal NONE SEEN [facility] Comment on above: Performed By: #### Med SHER UMICRO #### [facility] [address] [place] [address] Dr. Eran Chacon RBC 0-2 Normal 0-2 [facility] Comment on above: Performed By: #### HANNA BATES #### [facility] [address] [address] [address] Eran Chacon WBC 2-5 Abnormal NONE SEEN [facility] Comment on above: Performed By: #### HANNA BATES #### [facility] [address] [address] [address] Eran Chacon MRI SHOULDER LT WO [...] YEISON NAVAS Date: 2022-02-02 17:09 Normal [facility] XR shoulder LT min 2V*on XR shoulder LT min 2V* [facility] Main [address] [address] XRay Report Signed Patient: Nicholas Ziegler MR#: [id number] : 1960 Acct:[id number] Age/Sex: 61 / M ADM Date: 01/25/22 Loc: [facility] [place] Room: Type: [facility] Attending Dr: Kesha Trujillo MD Ordering Provider: [...] Otilia Nunez M.D.01/25/2022 11:41 AM Dictation Location: [place] [address] Transcribed By: [facility] 01/25/22 1141 Dictated By: Otilia Nunez MD 01/25/22 1139 Signed By: 01/25/22 1141 Normal [facility] Vital Signs Date Time Vital Sign Value Performing Clinician Facility 03-18-2024 08:46-0400 Body height 175.26 cm [facility] 03-18-2024 08:46-0400 Body mass index (BMI) [Ratio] 34.4 kg/m2 [facility] 03-18-2024 08:46-0400 Body weight 105.68 kg [facility] 03-18-2024 08:46-0400 Diastolic blood pressure 80 mm[Hg] [facility] 03-18-2024 08:46-0400 Heart rate 72 /min [facility] 03-18-2024 08:46-0400 Systolic blood pressure 130 mm[Hg] [facility] 03-03-2024 11:54-0400 Body height 175.26 cm [facility] 03-03-2024 11:54-0400 Body mass index (BMI) [Ratio] 34.7 kg/m2 [facility] 03-03-2024 11:54-0400 Body weight 106.59 kg [facility] 03-03-2024 11:54-0400 Diastolic blood pressure 81 mm[Hg] [facility] 03-03-2024 11:54-0400 Heart rate 69 /min [facility] 03-03-2024 11:54-0400 Systolic blood pressure 129 mm[Hg] [facility] 12-17-2023 08:54-0400 Body height 175.26 cm [facility] 12-17-2023 08:54-0400 Body mass index (BMI) [Ratio] 35.2 kg/m2 [facility] 12-17-2023 08:54-0400 Body weight 108.4 kg [facility] 12-17-2023 08:54-0400 Diastolic blood pressure 76 mm[Hg] [facility] 12-17-2023 08:54-0400 Heart rate 76 /min [facility] 12-17-2023 08:54-0400 Systolic blood pressure 154 mm[Hg] [facility] 12-05-2023 08:52-0400 Body height 175.26 cm [facility] 12-05-2023 08:52-0400 Body mass index (BMI) [Ratio] 35 kg/m2 [facility] 12-05-2023 08:52-0400 Body weight 107.67 kg [facility] 12-05-2023 08:52-0400 Diastolic blood pressure 78 mm[Hg] [facility] 12-05-2023 08:52-0400 Heart rate 69 /min [facility] 12-05-2023 08:52-0400 Systolic blood pressure 147 mm[Hg] [facility] 09-13-2023 13:30-0500 Body height 175.26 cm Hannah Magallanes Other [facility] 09-13-2023 13:30-0500 Body mass index (BMI) [Ratio] 33.22 kg/m2 Hannah Magallanes Other [facility] Other 09-13-2023 13:30-0500 Body temperature 98.4 [degF] Hannah Magallanes Other [facility] Other 09-13-2023 13:30-0500 Body weight 102.06 kg Hannah Magallanes Other [facility] Other 09-13-2023 13:30-0500 Body weight 102.05 kg [facility] 09-13-2023 13:30-0500 Diastolic blood pressure 80 mm[Hg] Hannah Magallanes Other [facility] 09-13-2023 13:30-0500 SaO2% (BldA) [Mass fraction] 93 % Hannah Magallanes Other [facility] Other 09-13-2023 13:30-0500 Systolic blood pressure 118 mm[Hg] Hannah Magallanes Other [facility] 08-13-2023 10:30-0500 Body height 175.26 cm Hannah Magallanes Other [facility] Other 08-13-2023 10:30-0500 Body mass index (BMI) [Ratio] 33.9 kg/m2 Hannah Magallanes Other [facility] Other 08-13-2023 10:30-0500 Body weight 104.15 kg Hannah Magallanes Other [facility] Other 08-13-2023 10:30-0500 Diastolic blood pressure 78 mm[Hg] Hannah Magallanes Other [facility] Other 08-13-2023 10:30-0500 Systolic blood pressure 124 mm[Hg] Hannah Magallanes Other [facility] Other 06-25-2023 08:45-0500 Body height 175.26 cm Hannah Magallanes Other [facility] Other 06-25-2023 08:45-0500 Body mass index (BMI) [Ratio] 33.37 kg/m2 Hannah Magallanes Other [facility] Other 06-25-2023 08:45-0500 Body temperature 96.5 [degF] Hannah Magallanes Other [facility] Other 06-25-2023 08:45-0500 Body weight 102.51 kg Hannah Magallanes Other [facility] Other 06-25-2023 08:45-0500 Diastolic blood pressure 85 mm[Hg] Hannah Magallanes Other [facility] Other 06-25-2023 08:45-0500 Systolic blood pressure 149 mm[Hg] Hannah Magallanes Other [facility] Other 05-28-2023 10:45-0400 Body height 175.26 cm Hannah Magallanes Other [facility] Other 05-28-2023 10:45-0400 Body mass index (BMI) [Ratio] 33.52 kg/m2 Hannah Magallanes Other [facility] Other 05-28-2023 10:45-0400 Body weight 102.97 kg Hannah Magallanes Other [facility] Other 05-28-2023 10:45-0400 Diastolic blood pressure 82 mm[Hg] Hannah Magallanes Other [facility] Other 05-28-2023 10:45-0400 Systolic blood pressure 147 mm[Hg] Hannah Magallanes Other [facility] Other 2023 08:45-0400 Body height 175.26 cm Hannah Magallanes Other [facility] Other 2023 08:45-0400 Body mass index (BMI) [Ratio] 33.52 kg/m2 Hannah Magallanes Other [facility] Other 2023 08:45-0400 Body weight 102.97 kg Hannah Magallanes Other [facility] Other 2023 08:45-0400 Diastolic blood pressure 85 mm[Hg] Hannah Magallanes Other [facility] Other 2023 08:45-0400 Systolic blood pressure 156 mm[Hg] Hannah Magallanes Other [facility] Other 04-30-2023 09:45-0400 Body height 175.26 cm Hannah Magallanes Other [facility] Other 04-30-2023 09:45-0400 Body mass index (BMI) [Ratio] 34.32 kg/m2 Hannah Magallanes Other [facility] Other 04-30-2023 09:45-0400 Body temperature 96.2 [degF] Hannah Magallanes Other [facility] Other 04-30-2023 09:45-0400 Body weight 105.42 kg Hannah Magallanes Other [facility] Other 04-30-2023 09:45-0400 Diastolic blood pressure 78 mm[Hg] Hannah Magallanes Other [facility] Other 04-30-2023 09:45-0400 Respiratory rate 16 /min Hannah Magallanes Other [facility] Other 04-30-2023 09:45-0400 Systolic blood pressure 146 mm[Hg] Hannah Magallanes Other [facility] Other 02-20-2023 09:15-0400 Body height 175.26 cm Hannah Magallanes Other [facility] Other 02-20-2023 09:15-0400 Body mass index (BMI) [Ratio] 33.46 kg/m2 Hannah Magallanes Other [facility] Other 02-20-2023 09:15-0400 Body weight 102.79 kg Hannah Magallanes Other [facility] Other 02-20-2023 09:15-0400 Diastolic blood pressure 77 mm[Hg] Hannah Magallanes Other [facility] Other 02-20-2023 09:15-0400 Systolic blood pressure 131 mm[Hg] Hannah Magallanes Other [facility] Other 01-17-2023 08:45-0400 Body height 175.26 cm Hannah Magallanes Other [facility] Other 01-17-2023 08:45-0400 Body mass index (BMI) [Ratio] 33.37 kg/m2 Hannah Magallanes Other [facility] Other 01-17-2023 08:45-0400 Body weight 102.51 kg Hannah Magallanes Other [facility] Other 01-17-2023 08:45-0400 Diastolic blood pressure 79 mm[Hg] Hannah Magallanes Other [facility] Other 01-17-2023 08:45-0400 Systolic blood pressure 128 mm[Hg] Hannah Magallanes Other [facility] Other 11-23-2022 09:30-0400 Body height 175.26 cm Hannah Magallanes Other [facility] Other 11-23-2022 09:30-0400 Body mass index (BMI) [Ratio] 33.96 kg/m2 Hannah Magallanes Other [facility] Other 11-23-2022 09:30-0400 Body weight 104.33 kg Hannah Magallanes Other [facility] Other 11-23-2022 09:30-0400 Diastolic blood pressure 72 mm[Hg] Hannah Magallanes Other [facility] Other 11-23-2022 09:30-0400 Systolic blood pressure 122 mm[Hg] Hannah Magallanes Other [facility] Other 09-04-2022 11:30-0500 Body height 175.26 cm Hannah Magallanes Other [facility] Other 09-04-2022 11:30-0500 Body mass index (BMI) [Ratio] 33.52 kg/m2 Hannah Magallanes Other [facility] Other 09-04-2022 11:30-0500 Body weight 102.97 kg Hannah Magallanes Other [facility] Other 09-04-2022 11:30-0500 Diastolic blood pressure 80 mm[Hg] Hannah Magallanes Other [facility] Other 09-04-2022 11:30-0500 SaO2% (BldA) [Mass fraction] 95 % Hannah Magallanes Other [facility] Other 09-04-2022 11:30-0500 Systolic blood pressure 122 mm[Hg] Hannah Magallanes Other [facility] Other 02-06-2022 12:45-0400 Body height 175.26 cm Kesha Olexa Other [facility] Other 02-06-2022 12:45-0400 Body mass index (BMI) [Ratio] 31.01 kg/m2 Kesha Olexa Other [facility] Other 02-06-2022 12:45-0400 Body weight 95.26 kg Kesha Olexa Other [facility] Other 05-26-2021 13:15-0400 Body height 175.26 cm Harriet Ginty Other [facility] Other 05-26-2021 13:15-0400 Body mass index (BMI) [Ratio] 31.01 kg/m2 Harriet Ginty Other [facility] Other 05-26-2021 13:15-0400 Body temperature 98.3 [degF] Harriet Ginty Other [facility] Other 05-26-2021 13:15-0400 Body weight 95.26 kg Harriet Johnsonneelam Other [facility] Other 05-26-2021 13:15040 SaO2% (BldA) [Mass fraction] 96 % Harriet Johnsonkizzycristiano Other [facility] Other Encounters Encounter Date Encounter Type Care Provider Facility Start: 04-07-2024 End: 04-07-2024 ambulatory MALATHI SANCHEZ Not Available Start: 04-06-2024 End: 04-06-2024 ambulatory Zacarias Pike MD Facility:[facility] Start: 03-18-2024 End: 03-18-2024 ambulatory [facility] Work Phone: Start: 03-18-2024 End: 03-18-2024 [facility] encounter procedure [facility] Work Phone: Start: 03-16-2024 End: 03-16-2024 ambulatory Zacarias Pike MD Facility:[facility] Start: 03-03-2024 End: 03-03-2024 ambulatory [facility] Work Phone: Start: 03-03-2024 End: 03-03-2024 Patient encounter procedure [facility] Work Phone: Start: 02-27-2024 Non-patient / Non-visit [facility] Work Phone: Start: 02-24-2024 End: 02-24-2024 ambulatory Zacarias Pike MD Facility:[facility] Start: 02-03-2024 End: 02-03-2024 ambulatory Zacarias Pike MD [facility] Start: 01-20-2024 End: 01-20-2024 ambulatory Zacarias Pike MD Facility:[facility] Start: 12-17-2023 End: 12-17-2023 ambulatory [facility] Work Phone: Start: 12-17-2023 End: 12-17-2023 Patient encounter procedure [facility] Work Phone: Start: 12-05-2023 End: 12-05-2023 ambulatory [facility] Work Phone: Start: 12-05-2023 End: 12-05-2023 Patient encounter procedure [facility] Work Phone: Start: 10-23-2023 Non-patient / Non-visit [facility] Work Phone: Start: 10-08-2023 Non-patient / Non-visit [facility] Work Phone: Start: 10-07-2023 End: 10-07-2023 ambulatory BARBIE TAPIA Not Available Start: 09-18-2023 End: 09-18-2023 ambulatory Hannah Magallanes Other [facility] Other Start: 09-18-2023 Telephone encounter Hannah Magallanes [facility] Start: 09-13-2023 End: 09-13-2023 ambulatory Hannah Magallanes Other [facility] Other Start: 09-13-2023 Office outpatient vi sit 15 minutes Hannah Magallanes [facility] Start: 09-13-2023 End: 09-13-2023 [facility] Start: 09-11-2023 Telephone encounter Argentina coleman [...] 09-10-2023 End: 09-10-2023 ambulatory Hannah Sona Other [facility] Other Start: 09-10-2023 Telephone encounter Hannah Sona [facility] Start: 09-06-2023 End: 09-06-2023 ambulatory Hannah Magallanes Other [facility] Other Start: 09-06-2023 Telephone encounter Hannah Sona [facility] Start: 09-02-2023 End: 09-02-2023 ambulatory HI POCOS Not Available Start: 08-20-2023 End: 08-20-2023 ambulatory Hannah Sona Other [facility] Other Start: 08-20-2023 Telephone encounter Hannah Sona [facility] Start: 08-13-2023 End: 08-13-2023 ambulatory Hannah Sona Other [facility] Other Start: 08-13-2023 Office outpatient vi sit 25 minutes Hannah Sona [facility] Start: 08-13-2023 Telephone encounter Hannah Magallanes [facility] Start: 08-06-2023 End: 08-06-2023 ambulatory Hannah Sona Other [facility] Other Start: 08-06-2023 Telephone encounter Hannah Sona [facility] Start: 07-29-2023 End: 07-29-2023 ambulatory HI POCOS Not Available Start: 07-22-2023 End: 07-22-2023 ambulatory Hannah Magallanes Other [facility] Other Start: 07-22-2023 Telephone encounter Hannah Sona [facility] Start: 07-19-2023 End: 07-19-2023 ambulatory Hannah Sona Other [facility] Other Start: 07-19-2023 Telephone encounter Hannah Sona [facility] Start: 07-18-2023 End: 07-18-2023 ambulatory Hannah Sona Other [facility] Other Start: 07-18-2023 Telephone encounter Hannah Sona [facility] Start: 07-02-2023 End: 07-02-2023 ambulatory Hannah Sona Other [facility] Other Start: 07-02-2023 Office outpatient vi sit 15 minutes Hannah Sona [facility] Start: 07-02-2023 Telephone encounter Hannah Magallanes [facility] Start: 06-25-2023 End: 06-25-2023 ambulatory Hannah Sona Other [facility] Other Start: 06-25-2023 Office outpatient vi sit 15 minutes Hannah Sona [facility] Start: 06-21-2023 End: 06-21-2023 ambulatory Hannah Sona Other [facility] Other Start: 06-21-2023 Encounter by compute r link Hannah Soan [facility] Start: 06-20-2023 End: 06-20-2023 ambulatory Hannah Sona Other [facility] Other Start: 06-20-2023 Telephone encounter Hannah Magallanes [facility] Start: 06-17-2023 End: 06-17-2023 ambulatory Hannah Sona Other [facility] Other Start: 06-17-2023 Telephone encounter Hannah Magallanes [facility] Start: 06-10-2023 End: 06-10-2023 ambulatory Hannah Sona Other [facility] Other Start: 06-10-2023 Telephone encounter Hannah Magallanes [facility] Start: 06-03-2023 End: 06-03-2023 ambulatory Hannah Magallanes Other [facility] Other Start: 06-03-2023 Telephone encounter Hannah Magallanes [facility] Start: 05-30-2023 End: 05-31-2023 ambulatory Hi Pocos [place] Start: 05-30-2023 End: 05-30-2023 Patient encounter procedure Hi Pocdor[facility] Start: 05-28-2023 End: 05-28-2023 ambulatory Hannah Sona Other [facility] Other Start: 05-28-2023 Office outpatient vi sit 15 minutes Hannah Magallanes [facility] Start: 2023 End: 2023 ambulatory Hannah Magallanes Other [facility] Other Start: 2023 Office outpatient vi sit 15 minutes Hannah Magallanes [facility] Start: 05-16-2023 End: 05-16-2023 ambulatory Hannah Sona Other [facility] Other Start: 05-16-2023 Telephone encounter Hannah Magallanes [facility] Start: 04-30-2023 End: 04-30-2023 ambulatory Hannah Magallanes Other [facility] Other Start: 04-30-2023 Office outpatient vi sit 15 minutes Hannah Magallanes [facility] Start: 04-26-2023 End: 04-26-2023 ambulatory Hannah Magallanes Other [facility] Other Start: 04-26-2023 Telephone encounter Hannah Magallanes [facility] Start: 04-23-2023 End: 04-23-2023 ambulatory Hannah Sona Other [facility] Other Start: 04-23-2023 Telephone encounter Hannah Magallanes [facility] Start: 03-25-2023 End: 03-25-2023 ambulatory Hannah Magallanes Other [facility] Other Start: 03-25-2023 Telephone encounter Hannah Magallanes [facility] Start: 03-06-2023 End: 03-06-2023 ambulatory Hannah Magallanes Other [facility] Other Start: 03-06-2023 Telephone encounter Hannah Magallanes [facility] Start: 02-20-2023 End: 02-20-2023 ambulatory Hannah Sona Other [facility] Other Start: 02-20-2023 Office outpatient vi sit 25 minutes Hannah Magallanes [facility] Start: 02-05-2023 End: 02-05-2023 ambulatory Hannah Sona Other [facility] Other Start: 02-05-2023 Telephone encounter Hannah Magallanes [facility] Start: 01-21-2023 End: 01-21-2023 ambulatory Hannah Sona Other [facility] Other Start: 01-21-2023 Telephone encounter Hannah Sona [facility] Start: 01-17-2023 End: 01-17-2023 ambulatory Hannah Magallanes Other [facility] Other Start: 01-17-2023 Office outpatient vi sit 15 minutes Hannah Magallanes [facility] Start: 12-24-2022 End: 12-24-2022 ambulatory Hannah Sona Other [facility] Other Start: 12-24-2022 Telephone encounter Hannah Magallanes [facility] Start: 12-03-2022 End: 12-03-2022 ambulatory Hannah Magallanes Other [facility] Other Start: 12-03-2022 Telephone encounter Hannah Sona [facility] Start: 11-27-2022 End: 11-27-2022 ambulatory Hannah Magallanes Other [facility] Other Start: 11-27-2022 Telephone encounter Hannah Magallanes [facility] Start: 11-26-2022 End: 11-26-2022 ambulatory Hannah Magallanes Other [facility] Other Start: 11-26-2022 Telephone encounter Hannah Magallanes [facility] Start: 11-24-2022 End: 11-25-[address] HANNAH MAGALLANES Facility:[facility] Start: 11-23-2022 End: 11-23-2022 ambulatory Hannah Magallanes Other [facility] Other Start: 11-23-2022 Office outpatient vi sit 15 minutes Hannah Magallanes [facility] Start: 11-05-2022 End: 11-05-2022 ambulatory Hannah Sona Other [facility] Other Start: 11-05-2022 Telephone encounter Hannah Magallanes [facility] Start: 10-03-2022 End: 10-03-2022 ambulatory Hannah Magallanes Other [facility] Other Start: 10-03-2022 Telephone encounter Hannah Magallanes [facility] Start: 09-04-2022 End: 09-04-2022 ambulatory Hannah Magallanes Other [facility] Other Start: 09-04-2022 Office outpatient vi sit 25 minutes Hannah Magallanes [facility] Start: 07-26-[address] HANNAH MAGALLANES Facil ity:H1 Start: 07-19-2022 End: 07-20-[address] WILFREDO ENGLE Facility:H1 Start: 06-07-2022 End: 06-07-[address] HANNAH MAGALLANES Facility:H1 Start: 03-15-2022 ambulatory KESHA TRUJILLO Facility:H 1 Start: 02-06-2022 End: 02-06-2022 ambulatory Kesha Trujillo Other [place] [employer] Other Start: 02-06-2022 Office outpatient vi sit 25 minutes Kesha Trujillo [facility] Start: 02-02-2022 End: 02-03-2022 ambulatory KEHSA TRUJILLO Facility:H1 Start: 12-28-2021 End: 12-28-[address] HANNAH MAGALLANES Facility:H1 Start: 12-12-2021 End: 12-13-2021 ambulatory KESHA TRUJILLO [facility] Other Start: 12-12-2021 Office outpatient ne w [...] Activity Detail Author Start: 03-18-2024 Patient referral [facility] Work Phone: Start: 10-07-2023 End: 10-07-2023 Patient encounter procedure 10/07/2023 8:00 AM EST Office Visit [facility] [address] [facility] [place] [address] Barbie Tapia DO [address] [place] [address] [facility] NB ORTHO CT Chest WO contrast [facility] Patient referral [facility] Work Phone: XR Pelvis and Hip - bilateral Views [facility] Immunizations Immunization Date Immunization Notes Care Provider Leon escalera 06-02-2018 Influenza, injectabl e, Madin Kyleigh Canine Kidney, preservative free, quadrivalent Argentina Clinton PT Work Phone: [facility] 05-17-2017 influenza virus vaccine, split virus (incl. purified surface antigen) Hannah Magallanes Other [employer] Other 05-17-2017 influenza virus vaccine, unspecified formulation [facility] 05-16-2017 influenza, injectabl e, quadrivalent, preservative free Argentina Clinton PT Work Phone: [facility] 06-28-2016 influenza, injectabl e, quadrivalent, preservative free Argentina Clinton PT Work Phone: [facility] 06-28-2016 tetanus and diphther ia toxoids, adsorbed, preservative free, for adult use (5 Lf of tetanus toxoid and 2 Lf of diphtheria toxoid) Hannah Magallanes Other [facility] 05-25-2015 influenza, seasonal, injectable, preservative free Argentina Clinton PT Work Phone: [facility] 05-25-2015 tetanus and diphther ia toxoids, adsorbed, preservative free, for adult use (5 Lf of tetanus toxoid and 2 Lf of diphtheria toxoid) Hannah Magallanes Other [facility] 06-15-1999 pneumococcal conjuga te vaccine, 7 valent Argentina Clinton PT Work Phone: [facility] Payers Date Payer Category Payer Medicaid [id number] 2013 Medicare [id number] 1960 Unknown [id number] 2.16.84 0.1.281664.3.579.2.593 1960 Unknown [id number] 2.16.84 0.1.741726.3.579.2.593 1960 Unknown [id number] 2.16.84 0.1.267409.3.579.2.593 1960 Unknown [id number] 2.16.84 0.1.821450.3.579.2.593 1960 Unknown [id number] 2.16.84 0.1.923542.3.579.2.593 1960 Unknown [id number] 2.16.84 0.1.748875.3.579.2.593 1960 Unknown [id number] 2.16.84 0.1.715493.3.579.2.593 1960 Unknown [id number] 2.16.84 0.1.088570.3.579.2.593 1960 Unknown [id number] 2.16.8 40.1.110622.3.579.2.727 1960 Unknown [id number] 2.16.84 0.1.465936.3.579.2.1259 1960 Unknown [id number] 2.16.84 0.1.351376.3.579.2.1259 1960 Unknown [id number] 2.16.84 0.1.794366.3.579.2.1259 1960 Unknown [id number] 2.16.84 0.1.237815.3.579.2.1259 1960 Unknown [id number] 2.16.840 .1.186679.3.579.2.1259 1960 Unknown [id number] 2.16. 840.1.761181.3.579.2.196 1960 Unknown [id number] 2.16. 840.1.080532.3.579.2.196 1960 Unknown [id number] 2.16. 840.1.589264.3.579.2.196 1960 Unknown [id number] 2.16. 840.1.269658.3.579.2.196 1960 Unknown [id number] 2.16. 840.1.816341.3.579.2.196 1959 Medicaid [id number] 2. 16.840.1.847285.19 1959 Medicare [id number] 2.1 6.840.1.713532.19 Self-pay Self Pay [id number] Social History Date Type Detail Facility Start: 09-02-2023 Sex Assigned At [facility] Tobacco smoking status No Smokin g Status Entered [facility] Start: 03-27-2023 Tobacco smoking status RIIS Smokes tobacco daily [facility] Work Phone: History of tobacco use Cigarette Smoker [facility] Start: 03-27-2023 End: 09-02-2023 Cigarettes smoked current (pack per day) - Reported 0.5 [facility] Start: 03-27-2023 Tobacco use and exposure Smokeless tobacco non-user [facility] Start: 09-02-2023 Alcohol intake Lifetime non-drinker (finding) [facility] Start: 03-27-2023 Alcohol Comment Caffine- Soda [facility] Start: 1960 Sex Assigned At Male [facility] Start: 08-21-2023 Gender identity Identifies as male gender (finding) [facility] Start: 08-21-2023 Sexual orientation Heterosexual (finding) [facility] Start: 02-06-2017 Tobacco smoking status RIIS Ex-smoker (finding) [facility] Medical Equipment Procedure Code Equipment [...] No attempts to hear back; closing referral. [facility] 10-02-2023 Miscellaneous Notes Formattin g of this note might be different from the original. No attempts to hear back; closing referral. documented in this encounter [facility] 09-13-2023 Evaluation note Encounter Date Diagnosis Assessment Notes Aug, Chronic obstructive pulmonary disease, unspecified (ICD-10 - J44.9) Finish antibiotics and prednisone as prescribed. Denies pulmonary referral at this time. Hasn't smoked since 09/08 and declines chantix or patches. Aug, Current smoker (ICD-10 - F17.200) [employer] Other 01-23-2024 Evaluation note* Encounter Date Diagnosis Assessment Notes Treatment Notes Treatment Clinical Notes Aug, Lumbar radicular pain (ICD-10 - M54.16) [employer] Other 01-19-2024 Evaluation note* Encounter Date Diagnosis Assessment Notes Treatment Notes Treatment Clinical Notes Aug, Lumbar radicular pain (ICD-10 - M54.16) [employer] Other 12-26-2023 Evaluation note* Encounter Date Diagnosis Assessment Notes Treatment Notes Treatment Clinical Notes Jul, Type 2 diabetes mellitus with hyperglycemia, without long-term current use of insulin (ICD-10 - E11.65) [employer] Other 12-26-2023 Evaluation note* Encounter Date Diagnosis [...] Improved overall. Continue present med and dose. 26 Jul, 2023 Disc degeneration, lumbar (ICD-10 - M51.36) Previously controlled on T3s. Neurology was treating him with regular injections as well. Plan is to return to T3s after shoulder pain has improved post-operatively. [employer] Other 12-04-2023 Evaluation note* Encounter Date Diagnosis Assessment Notes Treatment Notes Treatment Clinical Notes Jul, Type 2 diabetes mellitus with hyperglycemia, without long-term current use of insulin (ICD-10 - E11.65) [employer] Other 12-01-2023 Evaluation note* Encounter Date Diagnosis Assessment Notes Treatment Notes Treatment Clinical Notes Jul, Type 2 diabetes mellitus with hyperglycemia, without long-term current use of insulin (ICD-10 - E11.65) [employer] Other 11-30-2023 Evaluation note* Encounter Date Diagnosis Assessment Notes Treatment Notes Treatment Clinical Notes Jun, Labral tear of shoulder, right, subsequent encounter (ICD-10 - S43.431D) [employer] Other 11-14-2023 Evaluation note* Encounter Date Diagnosis [...] pain (ICD-10 - R07.9) r/o cardiac cause [employer] Other 11-07-2023 Evaluation note* Encounter Date Diagnosis [...] to decrease dose and possibly discontinue medication. [employer] Other 11-02-2023 Evaluation note* Encounter Date Diagnosis Assessment Notes Treatment Notes Treatment Clinical Notes Jun, Acute pain of right shoulder (ICD-10 - M25.511) [employer] Other 10-30-2023 Evaluation note* Encounter Date Diagnosis Assessment Notes Treatment Notes Treatment Clinical Notes May, Acute pain of right shoulder (ICD-10 - M25.511) [employer] Other 10-23-2023 Evaluation note* Encounter Date Diagnosis Assessment Notes Treatment Notes Treatment Clinical Notes May, Acute pain of right shoulder (ICD-10 - M25.511) [employer] Other 10-16-2023 Evaluation note* Encounter Date Diagnosis Assessment Notes Treatment Notes Treatment Clinical Notes May, Acute pain of right shoulder (ICD-10 - M25.511) [employer] Other 10-10-2023 Evaluation note* Encounter Date Diagnosis Assessment Notes Treatment Notes Treatment Clinical Notes May, Acute pain of right shoulder (ICD-10 - M25.511) MRI and surgery planning pending. Pt understands this is a controlled substance and to call in 1 week w update on treatment plan. May, Bronchitis (ICD-10 - J40) Finish antibiotic, rest, hydrate Steroids for wheezing. [employer] Other 10-04-2023 Evaluation note* Encounter Date Diagnosis Assessment Notes Treatment Notes Treatment Clinical Notes May, Acute pain of right shoulder (ICD-10 - M25.511) Reviewed [place] and discussed short term plan of increase in pain medication. He is due for a refill of the T3s presently. Stop them, replace w norco. Pt understands weekly prescription and will need to d/c after anticipated surgery. [employer] Other 09-12-2023 Evaluation note* Encounter Date Diagnosis [...] office and the ER visit on 04/26 [employer] Other 07-05-2023 Evaluation note* Encounter Date Diagnosis [...] and will need less prn pain med. [employer] Other 06-01-2023 Evaluation note* Encounter Date Diagnosis Assessment Notes Treatment Notes Treatment Clinical Notes Jan, RUQ pain (ICD-10 - R10.11) Discussed differential. continues to decline c-scope. start w labs and GBUS. Jan, Other chronic pain (ICD-10 - G89.29) Jan, Pain in right shoulder (ICD-10 - M25.511) Pt requests referral to Dr. Tapia - he hopes for intrarticular injections. Jan, Pain in left shoulder (ICD-10 - M25.512) as above. [employer] Other 04-17-2023 Evaluation note* Encounter Date Diagnosis Assessment Notes Treatment Notes Treatment Clinical Notes Nov, Bronchitis (ICD-10 - J40) [employer] Other 04-11-2023 Evaluation note* Encounter Date Diagnosis Assessment Notes Treatment Notes Treatment Clinical Notes Nov, Disc degeneration, lumbar (ICD-10 - M51.36) Nov, Lumbar radicular pain (ICD-10 - M54.16) [employer] Other 04-07-2023 Evaluation note* Encounter Date Diagnosis [...] quit smoking. Pt verbalizes understanding and agreement. [employer] Other 02-15-2023 Evaluation note* Encounter Date Diagnosis Assessment Notes Treatment Notes Treatment Clinical Notes Sep, Lumbar radicular pain (ICD-10 - M54.16) [employer] Other 01-17-2023 Evaluation note* Encounter Date Diagnosis [...] is outlined on the test result page. [employer] Other 10-20-2022 NoteIndication: Calculus in kidney. Comparison: [...] Electronically authenticated by: JOHN PINTO Date: 2022-06-07 20:07[facility]06-21-2022 Evaluation note* Encounter Date Diagnosis Assessment [...] of repair, infection and wound healing delays. [employer] Other 04-26-2022 NotePROCEDURE: XR SHOULDER LT 2V or > COMPARISON: None. HISTORY: Pain of left shoulder joint FINDINGS: BONES:No acute fracture or dislocation. 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 No visible soft tissue swelling. EFFUSION:None visible. OTHER: Negative. IMPRESSION: Mild osteoarthritis Electronically authenticated by: BARBIE MEMBRENO Date: 2021-12-12 15:25[id number]* Encounter Date Diagnosis Assessment Notes [...] pain of left shoulder (ICD-10 - M25.512) [employer] Other 10-08-2021 Evaluation note* Encounter Date Diagnosis [...] as needed for cough. Advised patient that [place] contains antihistamine and cough suppressant and to be cautious using other OTC cold medications. Patient to follow up with PCP if symptoms do not improve. Immediate eval if SOB, difficulty breathing, chest pain, dizziness, or other concerning symptoms. Patient verbalizes understanding and is agreeable to treatment plan [employer] Other Evaluation + Plan note No data available for this section [facility] note[facility] InformationNort [employer] Other Evaluation note* Diagnosis Onset Date Resolution Status Arthralgia acute Lumbar pain acute Type II diabetes mellitus ac cole [facility] Work Phone: Evaluation note* Diagnosis Onset Date Resolution Status Arthralgia acute Lumbar pain acute Type II diabetes mellitus ac cole Bilateral hip pain acute [facility] Work Phone: Evaluation note* Diagnosis Onset Date Resolution Status Arthralgia acute Lumbar pain acute Type II diabetes mellitus ac cole Bilateral hip pain acute Lumbar pain acute [facility] Work Phone: Evaluation note* Diagnosis Onset Date Resolution Status Submandibular abscess acute Chronic obstructive pulmonary disease, unspecified acute Esophageal abnormality acute Mass of left submandibular region acute [facility] Work Phone: History general Narrative - Reported* Type Description Date Medical History Asthma Medical History skin cancer-lip Surgical History Left lung biopsy 1977 Surgical History L4 and L5 disc fusion 1984 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 Other Hospital Discharge instructions No data available for this section [facility] instructions[facility] Orders* Referral to ENT Time Frame: 03/18/24, Location: None [facility] Work Phone: Progress note No data available for this section [facility] Summary Purpose Family History No [...] 1 Epigastric abdominal pain (R10.13) Referral Organization [facility] Referring Provider First Name Hannah Referring Provider Last Name Sona Referring Provider Specialty Family [facility] Referred Organization [facility] Referred Provider Sai Martinez Referred Address ,[place], [place],[address] Referred Provider Specialty Surgery Referral Priority Routine General Notes Es Camilo 11:38:02 AM >received today, attachments made, notes locked, referral faxed Reason 01/28/23 Access Or tho - B shoulder pain L>R - hopes for injections. Diagnosis 1 Pain in right should er (M25.511) Referral Organization [facility] [facility] Referring Provider First Name Hannah Referring Provider Last Name Sona Referring Provider Specialty [facility] [employer] Referred Organization [facility] Referred Provider Barbie Tapia Referred Address ,[place], [place],[address] Referred Provider Specialty Orthopaedic Surgery Referral Priority [...] in right should er (M25.511) Referral Organization [facility] [employer] [facility] Referring Provider First Name Hannah Referring Provider Last Name Sona Referring Provider Specialty [facility] [employer] Referred Organization [facility] Referred Provider Barbie Tapia Referred Address ,[place], [place],[address] Referred Provider Specialty Orthopaedic Surgery Referral Priority [...] AUTHOR AUTHOR'S ORGANIZ ATION [facility]/04/2022 [facility] DATE CREATED AUTHOR AUTHOR'S ORGANIZ ATION 06/01/2023 [facility] DATE CREATED AUTHOR AUTHOR'S ORGANIZ ATION 04/08/2024 [facility] DATE CREATED AUTHOR AUTHOR'S ORGANIZ ATION 04/17/2024 [facility] Patient Care team informatio n (unrecognized [...] Provider Active Start : 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 [facility]. provides no warranty or guarantee of the accuracy or completeness of information in this document.
--- NOTE | 2024-05-07 08:46 | P.CN_ITS ---
Consult Note: HPI Data of Consult Patient: known to practice within the last 3 years Consult date: 12/26/23 Requesting Physician: Janneth Villalta NP Primary Care Provider: Hannah Gallo MD Consult Narrative Reason for consult: f/u Narrative: Nicholas Ziegler a pleasant 63 year old male with an extensive history of chronic low back pain post lumbar surgery in 1984, left l4 hemilaminectomy according to MRI. Patient also has a significant history of bilateral hip and groin pain. Patient rating low back pain sharp ache pressure shooting, increasing to 10/10 with twisting pushing pulling standing too long transitioning walking activity stairs, pain improved slightly when lying in recliner. Patient has failed to benefit from tylenol, allergy to NSAIDs, failed oxycodone-acetaminophen 5- 325mgs, hydrocodone-acetaminophen 10mgs, gabapentin unknown dosage. . Patient has failed to benefit from PT and HEP greater than 6 weeks, increases his pain. Previously a patient at [facility] receiving epidurals q2 months for 7 years per patient, last MAGAN 07/11 with benefit. Most recently underwent bilateral L4/5 L5/S1 facet RFA with no improvement at this time, 4 weeks post-procedure. Currently tolerating tylenol #3 TID PRN without side effects, has not been utilizing tizanidine. cc:: CC: Janneth Villalta NP Review of Systems 2 ROS0 Status of ROS 10 or more systems reviewed and unremark able except as noted in history and below Musculoskeletal Reports: back pain and extremity pain PFSH PFSH Medical History Tobacco user ?Z72.0 - Tobacco use (ICD-10) Type 2 diabetes mellitus with hyperglycemia ?E11.65 - Type 2 diabetes mellitus with hyperglycemia (ICD-10) Acute exacerbation of chronic obstructive pulmonary disease (COPD) ?J44.1 - Chronic obstructive pulmonary disease with (acute) exacerbation (ICD-10) Lumbar degenerative disc disease ?M51.36 - Other intervertebral disc degeneration, lumbar region (ICD-10) Influenza ?J11.1 - Influenza due to unidentified influenza virus with other respiratory manifestations (ICD-10) Acute bronchospasm ?J98.01 - Acute bronchospasm (ICD-10) Postoperative pain, acute, shoulder ?G89.18 - Other acute postprocedural pain (ICD-10) ?M25.519 - Pain in unspecified shoulder (ICD-10) Fever ?R50.9 - Fever, unspecified (ICD-10) Acute pain of right shoulder ?M25.511 - Pain in right shoulder (ICD-10) Rotator cuff arthropathy of right shoulder ?M12.811 - Other specific arthropathies, not elsewhere classified, right shoulder (ICD-10) Diabetes ?E11.9 - Type 2 diabetes mellitus without complications (ICD-10) COPD (chronic obstructive pulmonary disease) ?J44.9 - Chronic obstructive pulmonary disease, unspecified (ICD-10) Surgical History S/P right rotator cuff repair ?Z98.890 - Other specified postprocedural states (ICD-10) Social History Within the past year, how often did you have a drink containing alcohol: never Score interpretation: A score less than 4 is consistent with normal alcohol consumption. 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 Little interest or pleasure in doing things: not at all Feeling down, depressed, or hopeless: not at all Feel stressed/tense/nervous/anxious/difficulty sleeping: not at all Do you think of yourself as: straight/heterosexual Gender Identity: male Meds Home Medications and Allergies Home Medications ?Medication ?Instructions ?Recorded ?Confirmed ?Type glipizide 5 mg-metformin 500 mg 1 tab PO DAILY 08/23/23 04/06/24 History tablet lancets (Accu-Chek Fastclix Lancet 09/08/23 09/08/23 History Drum) acetaminophen 300 mg-codeine 30 mg 2 tab PO TID PRN pain #180 tabs 01/02/24 04/06/24 Rx tablet naloxone 4 mg/actuation nasal 4 mg intranasal Q3M PRN opioid 01/02/24 04/06/24 Rx spray (Narcan) overdose #2 ea tizanidine 4 mg capsule 4 mg PO BID PRN muscle spasticity 02/24/24 04/06/24 History acetaminophen 300 mg-codeine 30 mg 2 tab PO TID PRN pain #180 tabs 03/06/24 03/16/24 Rx tablet acetaminophen 300 mg-codeine 30 mg See Rx Instructions .Route 04/01/24 Rx tablet .COMPLEX PRN pain #180 tabs acetaminophen 300 mg-codeine 30 mg See Rx Instructions .Route 05/07/24 Rx tablet .COMPLEX PRN pain #180 tabs Allergies Allergy/AdvReac Type Severity Reaction Status Date / Time fentanyl Allergy Intermediate Hives Verified 04/06/24 10:49 ofloxacin Allergy Intermediate HIVES Verified 04/06/24 10:49 olodaterol Allergy Intermediate SHORTNESS Verified 04/06/24 10:49 [From Stiolto Respimat] OF BREATH tiotropium Allergy Intermediate SHORTNESS Verified 04/06/24 10:49 [From Stiolto Respimat] OF BREATH zafirlukast Allergy Intermediate Hives Verified 04/06/24 10:49 ibuprofen [From Motrin] AdvReac Mild Hives Verified 04/06/24 10:49 Exam Constitutional Documenting provider has reviewed patient's vital signs: yes Common normals: no apparent distress, oriented x3, healthy appearing, alert and well nourished General appearance: cooperative [facility] Common normals: normocephalic, hearing grossly normal bilaterally and moist oral mucous membranes Head and scalp: normocephalic Eye Common normals: PERRL Pupil: PERRL Neck & C-Spine Common normals: full ROM General: normal visual inspection Chest Common normals: inspection of chest normal Respiratory Common normals: normal respiratory effort, no retractions and no use of accessory muscles Back & Pelvis Lumbar spine/lower back: ROM limited, pain with ROM, lumbar spinal tenderness, paraspinal muscle tenderness, paraspinal muscle spasm, straight leg raise positive right and straight leg raise positive left Sacroiliac joints: SI joint(s) abnormal Other: altered/decreased sensation to bilateral L4,5 right positive hailee(patricks), gaenslens, thigh thrust, compression test positive facet loading strength 5/5 in BLE tirgger points and myofascial spasming noted below Back image (male): 2 1. significant myofascial pain and spasming, trigger points noted 2. Extremity Common normals: normal to inspection and full ROM Right lower extremity: hip joint Left lower extremity: hip joint Other: significant increase in hip/groin pain with internal and external rotation of bilateral hips, right greater than left Neuro Common normals: oriented x3, CN's II-XII intact bilaterally, moves all extremities, no focal motor deficits, no sensory deficits noted and deep tendon reflexes 2+ bilaterally Sensorium/orientation: alert Gait (neuro): antalgic Motor exam: strength 5/5 throughout and no movement abnormalities noted Psych Common normals: mental status grossly normal, thought process normal, cooperative, affect normal, speech normal and activity/motor behavior normal Speech: normal speech Thought process: normal thought process Assessment and Plan Assessment and Plan (1) Lumbar stenosis with neurogenic claudication: (2) Myalgia, other site: Assessment and Plan: OPERATION:?Trigger Point Injection to right paralumbar spine ANESTHESIA:?Local COMPLICATIONS:?None. DESCRIPTION OF PROCEDURE:?The procedure risks, hazards and alternatives were discussed with the patient and a proper consent was obtained. The area over the myofascial spasm was prepped with alcohol utilizing sterile technique. After isolating it between two palpating fingertips a 25-gauge 1.5 needle was placed in the center of the myofascial spasms and a negative aspiration was performed. Then 1 cc of sensorcaine 09.25%, lidocaine 2%, and kenalog 40 mg/mlmg was injected into each trigger point x5. The patient tolerated the procedure well without any apparent difficulties or complications. They were feeling relief by the time the block had set. pain prior to injection 10/10, 5/10 upon dismissal. (3) Failed back syndrome: (4) Sacroiliitis: (5) Chronic prescription opiate use: Assessment and Plan: I feel these medications are improving the patient's quality of life and allow them to tolerate activities of daily living as well as participate in recreational activity.? The patient does not report intolerable side effects. The patient is NOT opioid naive and non-pharmacologic and non-opioid treatment has failed to significantly relieve the patient's pain and improve functionality. The patient has a diagnosis that is related to a somatic or visceral pain etiology. ? ?? I reviewed with the patient the potential risks and side effects with the use of? opioid medications including but not limited to respiratory depression,? sedation, and even . I verified the patient has access to naloxone should? these effects occur. I advised the patient to avoid the use of any other? sedation substances including alcohol, THC, and benzodiazepines while? taking opioid medications due to the risk of compounding side effects and? detrimental outcomes. I reviewed the ROOMS DIRECTOR, pain treatment agreement, urine? drug screen, and opioid start talking forms. The patient was advised to let? their family know they had Naloxone in case they would need to administer? the medication.? ?? A drug screen was completed within the last year, and no aberrancies were noted regarding their use of controlled substances. The patient understands they are subject to the terms and conditions of the pain contract that they have signed. ? ?? I have checked an [place] report on this patient today and there are no aberrancies noted in the prescribing history.? (6) Lumbar spondylosis: Plan repeat bilateral L4-5 TFESI under fluoroscopy for lumbar stenosis with NC, previous bilateral L4-5 TFESI provided >50% improvement greater than 3 months. risks vs benefits reviewed TPI performed as noted above, 50% improvement immediately following stop tizanidine, start baclofen 10mg TID PRN pain/spasms. risks vs benefits reviewed continue tylenol #3 TID PRN moderate to severe pain, risks vs benefits reviewed f/u 2 weeks after TFESI
== END 2024-05-07 08:22 | disposition home or self-care (01) ==
PROVIDERS: PCP Family Medicine; Visit Provider Nurse Practitioner
DX: M48.062 Spinal stenosis, lumbar region with neurogenic claudication (principal); M79.18 Myalgia, other site; M96.1 Postlaminectomy syndrome, not elsewhere classified; M46.1 Sacroiliitis, not elsewhere classified; Z79.891 Long term (current) use of opiate analgesic; M47.816 Spondylosis without myelopathy or radiculopathy, lumbar region
CPT/HCPCS: 20552; J0665; J3301

== ENCOUNTER 2024-05-18 06:47 | Day surgery (SDC) | payer MEDICARE, SELFPAY ==
--- OUTSIDE RECORDS SUMMARY | 2024-05-18 06:51 | XMS_ITS | CCD ---
Author Organization [facility] Care Team Providers Care Carroting Machine Offbearer Name Role Phone Ronnie Kesha Unavailable Chepe Harriet Unavailable Hannah Magallanes Unavailable SONA, DR HANNAH Jovel Admitting Unavailable MAGALLANES, DR HANNAH Jovel Attending Unavailable MAGALLANES, DR HANNAH Jovel Primary Care Unavailable MAGALLANES, DR HANNAH Jovel Consulting Unavailable TAVERAS, RUBI Consulting Unavailable OLEXA, KESHA Admitting Unavailable OLEXA, KESHA Attending Unavailable MAGALLANES, DR HANNAH Jovel Primary Care Unavailable [place], DR BARBIE Goldberg Consulting Unavailable OLEXA, KESHA [...] CARLOS Drummond Attending Unavailable BREE, DR CARLOS Drumomnd Consulting Unavailable MILLIE, HOSSAM Consulting Unavailable HANNAH MAGALLANES Primary Care Physician [phone] Edin, Barbie Tellez Referring Unavailable Pocdoron, Barbie [...] Reaction(s) Facility (20 sources) Ibuprofen Drug Allergy [facility] [employer] [facility] Other (20 sources) olodaterol / tiotropium Drug Allergy shortness of breath [facility] Other (20 sources) CT Scan dye Propensity to adverse reactions [facility] Other (6 sources) Ibuprofen Drug Allergy 08-19-18 80 [facility] (2 sources) Iodine (And Iodine Containting Drugs) Drug allergy (disorder) 09-07-19 16 [facility] Repository (1 source) NSAIDs Drug allergy (disorder) [facility] (20 sources) fentaNYL Drug Allergy 12-05-19 24 Unknown, [facility] (4 sources) Ibuprofen Drug Allergy 01-15-20 15 [facility] (20 sources) Ofloxacin Drug Allergy 12-05-19 24 Unknown, [facility] (3 sources) zafirlukast Drug Allergy 01-15-20 15 Unknown [facility] Other (20 sources) Zafirlukast *ANTIASTHMATIC AND BRONCHODILATOR AGEN Propensity to adverse reactions Unknown [facility] Other (20 sources) Ibuprofen & Diet Manage Prod *ANALGESICS - ANTI-IN Propensity to adverse reactions Unknown [facility] Other (3 sources) Allergies Reconciled Propensity to adverse reactions Unknown [facility] Other (20 sources) Iodinated contrast media (substance) Drug allergy 06-03-20 19 Rash [facility] Other (3 sources) patient allergy list reviewed by nurse or physicia Propensity to adverse reactions 10-05-19 16 Comment:Done [facility] Other (4 sources) olodaterol Drug Allergy 12-05-19 24 shortness of breath [facility] (4 sources) tiotropium Drug Allergy 12-05-19 24 shortness of breath [facility] (4 sources) Iodinated Contrast Media Allergy to substance 12-05-19 [facility] (4 sources) Ibuprofen & Diet Manage Prod * Allergy to substance 12-04-19 24 [facility] (4 sources) Zafirlukast *ANTIASTHMATIC AND Allergy to substance 12-04-19 [facility] Medications Current Medications Medication Drug Class(es) Dates [...] Active Start: 09-06-2023 take 1 tablet by dseirae th every six hours Acetaminophen-Codeine 300-30 MG [...] as needed Orally every 6 hrs Active [id number] actuat albuterol 0.09 mg/actuat metered dose [...] days May, Active Start: 2023 HYDROcodone-ac etaminophen ([place]) 10-325 MG tablet Start: 2023 take 1 [...] 30 mg oral tablet (5 sources) Uncompetitive U-tbcmfu-H-aspartate Receptor Antagonist, Sigma-1 Agonist Start: 05-26-2021 take 1 tablet by mouth every eight hours [place] DMT 30-30 MG 1 tablet Orally every [...] 8:39am Start: 02-20-2023 take 1 capsule by [facility] every twenty-four hours Cymbalta 60 MG 1 [...] 10-05-2015 Episodic Other aftercare (1 source) Other correction (current) drug therapy; Translations: [OTH SCRAP MATERIALS BUYER CURRENT DRUG THERAPY] Onset: 12-29-2021 Episodic Other [...] Basophils (Bld) [#/Vol] 0.1 10 3/uL 0.0-0.1 [facility] Basophils/100 WBC Auto (Bld) on 02-27-2024 Basophils/100 WBC (Bld) 0.5 % 0.2-2.0 [facility] Eosinophils/100 WBC Auto (Bl d)on 02-27-2024 Eosinophils/100 WBC (Bld) 2.5 % 0.9-7.0 [facility] Erythrocyte distribution wid th Auto (RBC) [Ratio]on 02-27-2024 Erythrocyte distribution width (RBC) [Ratio] 13.5 % 11.0-15.0 [facility] Estimated glomerular filtrat ion rate (GFR) non- Americanon 02-27-2024 GFR/1.73 sq M.predicted among non-blacks MDRD (S/P/Bld) [Vol rate/Area] mL/min/{1.73_m2} >=60 [facility] Hematocrit Auto (Bld) [Volum e fraction]on 02-27-2024 Hematocrit (Bld) [Volume fraction] 47.1 % 42.0-54.0 [facility] Hemoglobin [Mass/volume] in Bloodon 02-27-2024 Hemoglobin (Bld) [Mass/Vol] 15.5 g/dL 14.0-18.0 [facility] Laboratory - Chemistry and C hemistry - challengeon 02-27-2024 Calcium [Mass/Vol] 8.9 mg/dL 8.5-10.1 [facility] Chloride [Moles/Vol] 98 mmol/L 98-107 [facility] CO2 [Moles/Vol] 28.1 mmol/L 21.0-32.0 [facility] Creatinine [Mass/Vol] 0.86 mg/dL 0.70-1.30 [facility] GFR/1.73 sq M.predicted MDRD (S/P/Bld) [Vol rate/Area] mL/min/{1.73_m2} >=60 [facility] Glucose [Mass/Vol] 237 mg/dL High 74-106 [facility] Lactate [Moles/Vol] 1.3 mmol/L 0.4-2.0 [facility] Potassium [Moles/Vol] 4.4 mmol/L 3.5-5.1 [facility] Sodium [Moles/Vol] 130 mmol/L Low 136-145 [facility] Urea nitrogen [Mass/Vol] 21.0 mg/dL High 7.0-18.0 [facility] Urea nitrogen/Creatinine [Mass ratio] 24.4 mg/mg [facility] Laboratory - Hematology and Cell countson 02-27-2024 Immature granulocytes/100 WBC (Bld) 0.3 % 0.0-0.5 [facility] Leukocytes [#/volume] correc jean claude for nucleated erythrocytes in Blood by Automated counon 02-27-2024 WBC corrected for nucl RBC Auto (Bld) [#/Vol] 9.3 10 3/uL 4.0-11.0 [facility] Lymphocytes Auto (Bld) [#/Vo l]on 02-27-2024 Lymphocytes (Bld) [#/Vol] 2.4 10 3/uL 1.2-3.8 [facility] Lymphocytes/100 WBC Auto (Bl d)on 02-27-2024 Lymphocytes/100 WBC (Bld) 25.5 % 20.5-60.0 [facility] MCH Auto (RBC) [Entitic mass ]on 02-27-2024 MCH (RBC) [Entitic mass] 29.1 pg 25.9-34.0 [facility] MCHC Auto (RBC) [Mass/Vol]on 02-27-2024 MCHC (RBC) [Mass/Vol] 32.9 g/dL 29.9-35.2 [facility] MCV Auto (RBC) [Entitic vol] on 02-27-2024 MCV (RBC) [Entitic vol] 88.5 fL 80.0-94.0 [facility] Monocytes Auto (Bld) [#/Vol] on 02-27-2024 Monocytes (Bld) [#/Vol] 1.1 10 3/uL High 0.3-0.8 [facility] Monocytes/100 WBC Auto (Bld) on 02-27-2024 Monocytes/100 WBC (Bld) 12.0 % 1.7-12.0 [facility] Neutrophils Auto (Bld) [#/Vo l]on 02-27-2024 Neutrophils (Bld) [#/Vol] 5.5 10 3/uL 1.4-6.5 [facility] Neutrophils/100 WBC Auto (Bl d)on 02-27-2024 Neutrophils/100 WBC (Bld) 59.2 % 43.0-75.0 [facility] No Panel Informationon 02-26 Eosinophils # (Auto) 0.2 10 3/uL 0.0-0.7 [facility] Immature Granulocyte # (Auto) 0.03 10 3/uL 0.00-0.03 [facility] Platelet mean volume Auto (B ld) [Entitic vol]on 02-27-2024 Platelet mean volume (Bld) [Entitic vol] 8.8 fL Low 9.5-13.5 [facility] Platelets Auto (Bld) [#/Vol] on 02-27-2024 Platelets (Bld) [#/Vol] 288 10 3/uL 150-450 [facility] RBC Auto (Bld) [#/Vol]on RBC (Bld) [#/Vol] 5.32 10 6/uL 4.70-6.10 [facility] Serum or plasma anion gap de terminationon 02-27-2024 Anion gap [Moles/Vol] 8.3 mmol/L [facility] Basophils Auto (Bld) [#/Vol] on 12-05-2023 Basophils (Bld) [#/Vol] 0.1 10 3/uL 0.0-0.1 [facility] Basophils/100 WBC Auto (Bld) on 12-05-2023 Basophils/100 WBC (Bld) 0.9 % 0.2-2.0 [facility] Eosinophils/100 WBC Auto (Bl d)on 12-05-2023 Eosinophils/100 WBC (Bld) 2.7 % 0.9-7.0 [facility] Erythrocyte distribution wid th Auto (RBC) [Ratio]on 12-05-2023 Erythrocyte distribution width (RBC) [Ratio] 13.1 % 11.0-15.0 [facility] Estimated glomerular filtrat ion rate (GFR) non- Americanon 12-05-2023 GFR/1.73 sq M.predicted among non-blacks MDRD (S/P/Bld) [Vol rate/Area] mL/min/{1.73_m2} >=60 [facility] Glucose mean value [Mass/vol ume] in Blood Estimated from glycated hemoglobinon 12-05-2023 Average glucose Estimated from glycated hemoglobin (Bld) [Mass/Vol] 171 mg/dL [facility] Hematocrit Auto (Bld) [Volum e fraction]on 12-05-2023 Hematocrit (Bld) [Volume fraction] 48.9 % 42.0-54.0 [facility] Hemoglobin [Mass/volume] in Bloodon 12-05-2023 Hemoglobin (Bld) [Mass/Vol] 16.0 g/dL 14.0-18.0 [facility] Laboratory - Chemistry and C hemistry - challengeon 12-05-2023 Calcium [Mass/Vol] 9.7 mg/dL 8.5-10.1 [facility] Chloride [Moles/Vol] 102 mmol/L 98-107 [facility] CO2 [Moles/Vol] 27.6 mmol/L 21.0-32.0 [facility] Creatinine [Mass/Vol] 1.01 mg/dL 0.70-1.30 [facility] GFR/1.73 sq M.predicted MDRD (S/P/Bld) [Vol rate/Area] mL/min/{1.73_m2} >=60 [facility] Glucose [Mass/Vol] 156 mg/dL High 74-106 [facility] Potassium [Moles/Vol] 4.4 mmol/L 3.5-5.1 [facility] Sodium [Moles/Vol] 139 mmol/L 136-145 [facility] Urea nitrogen [Mass/Vol] 13.0 mg/dL 7.0-18.0 [facility] Urea nitrogen/Creatinine [Mass ratio] 12.9 mg/mg [facility] Laboratory - Hematology and Cell countson 12-05-2023 ESR (Bld) [Velocity] 17 mm/h <=20 [facility] HbA1c (Bld) [Mass fraction] 7.6 % High 4.5-6.2 [facility] Comment on above: ADA RECOMMENDED LIMI T 4.0 - 6.0ADA THERAPEUTIC TARGET < 7.0ACTION SUGGESTED> 7.0 Immature granulocytes/100 WBC (Bld) 0.4 % 0.0-0.5 [facility] Leukocytes [#/volume] correc jean claude for nucleated erythrocytes in Blood by Automated counon 12-05-2023 WBC corrected for nucl RBC Auto (Bld) [#/Vol] 7.7 10 3/uL 4.0-11.0 [facility] Lymphocytes Auto (Bld) [#/Vo l]on 12-05-2023 Lymphocytes (Bld) [#/Vol] 2.4 10 3/uL 1.2-3.8 [facility] Lymphocytes/100 WBC Auto (Bl d)on 12-05-2023 Lymphocytes/100 WBC (Bld) 31.2 % 20.5-60.0 [facility] MCH Auto (RBC) [Entitic mass ]on 12-05-2023 MCH (RBC) [Entitic mass] 28.5 pg 25.9-34.0 [facility] MCHC Auto (RBC) [Mass/Vol]on 12-05-2023 MCHC (RBC) [Mass/Vol] 32.7 g/dL 29.9-35.2 [facility] MCV Auto (RBC) [Entitic vol] on 12-05-2023 MCV (RBC) [Entitic vol] 87.0 fL 80.0-94.0 [facility] Monocytes Auto (Bld) [#/Vol] on 12-05-2023 Monocytes (Bld) [#/Vol] 0.7 10 3/uL 0.3-0.8 [facility] Monocytes/100 WBC Auto (Bld) on 12-05-2023 Monocytes/100 WBC (Bld) 9.5 % 1.7-12.0 [facility] Neutrophils Auto (Bld) [#/Vo l]on 12-05-2023 Neutrophils (Bld) [#/Vol] 4.2 10 3/uL 1.4-6.5 [facility] Neutrophils/100 WBC Auto (Bl d)on 12-05-2023 Neutrophils/100 WBC (Bld) 55.3 % 43.0-75.0 [facility] No Panel Informationon 12-04 Eosinophils # (Auto) 0.2 10 3/uL 0.0-0.7 [facility] Immature Granulocyte # (Auto) 0.03 10 3/uL 0.00-0.03 [facility] Platelet mean volume Auto (B ld) [Entitic vol]on 12-05-2023 Platelet mean volume (Bld) [Entitic vol] 8.6 fL Low 9.5-13.5 [facility] Platelets Auto (Bld) [#/Vol] on 12-05-2023 Platelets (Bld) [#/Vol] 330 10 3/uL 150-450 [facility] RBC Auto (Bld) [#/Vol]on RBC (Bld) [#/Vol] 5.62 10 6/uL 4.70-6.10 [facility] Serum or plasma anion gap de terminationon 12-05-2023 Anion gap [Moles/Vol] 13.8 mmol/L [facility] Magnesiumon 07-02-2023 Magnesium [Mass/Vol] 2.4928820 mg/dL Normal 1.8-2.4 mg/dL [facility] [facility] Other Magnesium see note [facility] [facility] Other MRI Shoulder w/o Contrast [facility] 05-31-2023 MRI Shoulder w/o Contrast Right Exam Date/Time: 05/30/2023 14:25 EDT Reason for Exam: [id number] Report IMPRESSION: Full-thickness rotator cuff tearing involving [...] TAMARA Technologist: STELLA Technical Comments None Normal [facility] Consent for Treatmenton 05-19 Consent for Treatment [id number] .[id number] Normal [facility] RAD - MRI Screening Formon RAD - MRI Screening Form [id number]#1. 00TIFF Normal [facility] Physician Orderon 05-09-2023 Physician Order [id number]# 1.00CD:127 Normal [facility] XR CHEST 2 Von 11-24-2022 [...] by: RUBI TAVERAS Date: 2022-11-24 17:17 Normal [facility] CT LUNG CANCER SCREENINGon 1 09-20-2021 [...] YEISON NAVAS Date: 2022-07-20 07:18 Normal [facility] CBC AUTO DIFFon 06-07-2022 BASO # 0.1 103/ul Normal 0.0-0.1 [facility] Comment on above: Performed By: #### C BC #### [facility] [address] [place] [address] Dr. Eran Chacon Basophils/100 WBC (Bld) 0.6 % Normal 0.2-2.0 [facility] Comment on above: Performed By: #### C BC #### [facility] [address] [place] [address] Dr. Eran Chacon EO # 0.3 103/ul Normal 0.0-0.7 [facility] Comment on above: Performed By: #### C BC #### [facility] [address] [place] [address] Dr. Eran Chacon Eosinophils/100 WBC (Bld) 3.3 % Normal 0.9-7.0 [facility] Comment on above: Performed By: #### C BC #### [facility] [address] [place] [address] Dr. Eran Chacon Erythrocyte distribution width (RBC) [Ratio] 12.9 % Normal 11.0-15.0 [facility] Comment on above: Performed By: #### C BC #### [facility] [address] [place] [address] Dr. Eran Chacon Hematocrit (Bld) [Volume fraction] 47.7 % Normal 42.0-54.0 [facility] Comment on above: Performed By: #### C BC #### [facility] [address] [place] [address] Dr. Eran Chacon Hemoglobin (Bld) [Mass/Vol] 15.9 g/dL Normal 14.0-18.0 [facility] Comment on above: Performed By: #### C BC #### [facility] [address] [place] [address] Dr. Eran Chacon IG # 0.02 10e3/ul Normal 0.00-0.03 [facility] Comment on above: Performed By: #### C BC #### [facility] [address] [place] [address] Dr. Eran Chacon IG % 0.2 % Normal 0.0-0.5 [facility] Comment on above: Performed By: #### C BC #### [facility] [address] [place] [address] Dr. Eran Chacon LYMPH # 3.4 103/ul Normal 1.2-3.8 [facility] Comment on above: Performed By: #### C BC #### [facility] [address] [place] [address] Dr. Eran Chacon Lymphocytes/100 WBC (Bld) 34.5 % Normal 20.5-60.0 [facility] Comment on above: Performed By: #### C BC #### [facility] [address] [place] [address] Dr. Eran Chacon MANUAL DIFF REQ NO Normal [facility] Comment on above: Performed By: #### C BC #### [facility] [address] [place] [address] Dr. Eran Chacon MCH (RBC) [Entitic mass] 29.6 pg Normal 25.9-34.0 [facility] Comment on above: Performed By: #### C BC #### [facility] [address] [place] [address] Dr. Eran Chacon MCHC (RBC) [Mass/Vol] 33.3 g/dL Normal 29.9-35.2 [facility] Comment on above: Performed By: #### C BC #### [facility] [address] [place] [address] Dr. Eran Chacon MCV (RBC) [Entitic vol] 88.8 fL Normal 80.0-94.0 [facility] Comment on above: Performed By: #### C BC #### [facility] [address] [address] [address] Eran Chacon MONO # 0.9 103/ul Critically high 0.3-0.8 [facility] Comment on above: Performed By: #### C BC #### [facility] [address] [place] [address] Dr. Eran Chacon Monocytes/100 WBC (Bld) 9.3 % Normal 1.7-12.0 [facility] Comment on above: Performed By: #### C BC #### [facility] [address] [place] [address] Dr. Eran Chacon NEUT # 5.2 103/ul Normal 1.4-6.5 [facility] Comment on above: Performed By: #### C BC #### [facility] [address] [place] [address] Dr. Eran Chacon Neutrophils/100 WBC (Bld) 52.1 % Normal 43.0-75.0 [facility] Comment on above: Performed By: #### C BC #### [facility] [address] [place] [address] Dr. Eran Chacon Platelet mean volume (Bld) [Entitic vol] 8.8 fL Critically low 9.5-13.5 [facility] Comment on above: Performed By: #### C BC #### [facility] [address] [place] [address] Dr. Eran Chacon PLT 287 103/ul Normal 150-450 [facility] Comment on above: Performed By: #### C BC #### [facility] [address] [place] [address] Dr. Eran Chacon RBC 5.37 106/ul Normal 4.70-6.10 [facility] Comment on above: Performed By: #### C BC #### [facility] [address] [place] [address] Dr. Eran Chacon WBC 9.9 103/ul Normal 4.0-11.0 [facility] Comment on above: Performed By: #### C BC #### [facility] [address] [place] [address] Dr. Eran Chacon ER URINE PROFILEon 2 Bilirubin Ql (U) Negative Normal NEGATIVE [facility] Comment on above: Performed By: #### Med PIERRER, UMICRO #### [facility] [address] [place] [address] Dr. Eran Chacon Clarity (U) CLEAR Normal CLEAR [facility] Comment on above: Performed By: #### Med SHER, UMICRO #### [facility] [address] [place] [address] Dr. Eran Chacon Color (U) YELLOW Normal YELLOW [facility] Comment on above: Performed By: #### Med SHER UMICRO #### [facility] [address] [place] [address] Dr. Eran Chacon ERUSOLANGE A micrscopic examination will be performed if indicated. Normal [facility] Comment on above: Performed By: #### Med SHER UMICRO #### [facility] [address] [place] [address] Dr. Eran Chacon Glucose Ql (U) 500 mg/dl Abnormal NEGATIVE [facility] Comment on above: Performed By: #### Med SHER, UMICRO #### [facility] [address] [place] [address] Dr. Eran Chacon Hemoglobin Ql (U) TRACE-INTACT Abnormal NEGATIVE [facility] Comment on above: Performed By: #### Med SHER UMICRO #### [facility] [address] [place] [address] Dr. Eran Chacon Ketones Ql (U) Negative Normal NEGATIVE [facility] Comment on above: Performed By: #### Med SHER UMICRO #### [facility] [address] [place] [address] Dr. Eran Chacon LEUKOCYTES Negative Normal NEGATIVE [facility] Comment on above: Performed By: #### HANNA BATES #### [facility] [address] [place] [address] Dr. Eran Chacon Nitrite Ql (U) Negative Normal NEGATIVE [facility] Comment on above: Performed By: #### HANNA BATES #### [facility] [address] [place] [address] Dr. Eran Chacon pH (U) 6.0 [pH] Normal 5-9 [facility] Comment on above: Performed By: #### HANNA BATES #### [facility] [address] [place] [address] Dr. Eran Chacon SPEC GRAVITY 1.025 Normal 1.005-<=1.025 [facility] Comment on above: Performed By: #### HANNA BATES #### [facility] [address] [place] [address] Dr. Eran Chacon UA PROTEIN Negative Normal NEGATIVE/ TRACE [facility] Comment on above: Performed By: #### HANNA BATES #### [facility] [address] [place] [address] Dr. Eran Chacon UR MICRO IND INDICATED Normal [facility] Comment on above: Performed By: #### HANNA BATES #### [facility] [address] [place] [address] Dr. Eran Chacon Urobilinogen Qn (U) 0.2 {Aureliano'U}/dL Normal 0.2 - 1. 0 [facility] Comment on above: Performed By: #### HANNA BATES #### [facility] [address] [place] [address] Dr. Eran Chacon PROF 14(COMP METB)on 022 Albumin [Mass/Vol] 4.0 g/dL Normal 3.4-5.0 [facility] Comment on above: Performed By: #### C MP #### [facility] [address] [place] [address] Dr. Eran Chacon Albumin/Globulin [Mass ratio] 1.2 {ratio} Normal [facility] Comment on above: Performed By: #### C MP #### [facility] [address] [place] [address] Dr. Eran Chacon ALP [Catalytic activity/Vol] 104 U/L Normal 46-116 [facility] Comment on above: Performed By: #### C MP #### [facility] [address] [place] [address] Dr. Eran Chacon ALT [Catalytic activity/Vol] 28 U/L Normal 16-63 [facility] Comment on above: Performed By: #### C MP #### [facility] [address] [place] [address] Dr. Eran Chacon Anion gap [Moles/Vol] 7.2 mmol/L Normal [facility] Comment on above: Performed By: #### C MP #### [facility] [address] [place] [address] Dr. Eran Chacon AST [Catalytic activity/Vol] 14 U/L Critically low 15-37 [facility] Comment on above: Performed By: #### C MP #### [facility] [address] [place] [address] Dr. Eran Chacon Bilirubin [Mass/Vol] 0.4 mg/dL Normal 0.2-1.0 [facility] Comment on above: Performed By: #### C MP #### [facility] [address] [place] [address] Dr. Eran Chacon Calcium [Mass/Vol] 9.0 mg/dL Normal 8.5-10.1 [facility] Comment on above: Performed By: #### C MP #### [facility] [address] [place] [address] Dr. Eran Chacon Chloride [Moles/Vol] 103 mmol/L Normal 98-107 [facility] Comment on above: Performed By: #### C MP #### [facility] [address] [place] [address] Dr. Eran Chacon CO2 [Moles/Vol] 30.0 mmol/L Normal 21.0-32.0 [facility] Comment on above: Performed By: #### C MP #### [facility] [address] [address] [address] Eran Chacon Creatinine [Mass/Vol] 0.85 mg/dL Normal 0.70-1.30 [facility] Comment on above: Performed By: #### C MP #### [facility] [address] [address] [address] Eran Chacon EGFR-AF AFGHAN >60 Normal >=60 [facility] Comment on above: Performed By: #### C MP #### [facility] [address] [address] [address] Eran Chacon EGFR-NON AF AFGHAN >60 Normal >=60 [facility] Comment on above: Performed By: #### C MP #### [facility] [address] [place] [address] Dr. Eran Chacon Globulin (S) [Mass/Vol] 3.3 g/dL Normal [facility] Comment on above: Performed By: #### C MP #### [facility] [address] [place] [address] Dr. Eran Chacon Glucose [Mass/Vol] 165 mg/dL Critically high 74-[address] [facility] Comment on above: Performed By: #### C MP #### [facility] [address] [place] [address] Dr. Eran Chacon Potassium [Moles/Vol] 4.2 mmol/L Normal 3.5-5.1 [facility] Comment on above: Performed By: #### C MP #### [facility] [address] [place] [address] Dr. Eran Chacon Protein [Mass/Vol] 7.3 g/dL Normal 6.4-8.2 [facility] Comment on above: Performed By: #### C MP #### [facility] [address] [place] [address] Dr. Eran Chacon Sodium [Moles/Vol] 136 mmol/L Normal 136-145 [facility] Comment on above: Performed By: #### C MP #### [facility] [address] [place] [address] Dr. Eran Chacon Urea nitrogen [Mass/Vol] 10.0 mg/dL Normal 7.0-18.0 [facility] Comment on above: Performed By: #### C MP #### [facility] [address] [place] [address] Dr. Eran Chacon Urea nitrogen/Creatinine [Mass ratio] 11.8 mg/mg Normal [facility] Comment on above: Performed By: #### C MP #### [facility] [address] [place] [address] Dr. Eran Chacon URINE MICROSCOPIC ONLYon BACTERIA NONE SEEN Normal NONE SEEN [facility] Comment on above: Performed By: #### Med SHER UMICRO #### [facility] [address] [place] [address] Dr. Eran Chacon Bacteria identified Cx Nom (U) NOT INDICATED Normal [facility] Comment on above: Performed By: #### Med SHER UMICRO #### [facility] [address] [place] [address] Dr. Eran Chacon CAST NONE SEEN Normal NONE SEEN [facility] Comment on above: Performed By: #### Med SHER UMICRO #### [facility] [address] [place] [address] Dr. Eran Chacon Crystals LM Nom (Urine sed) NONE SEEN Normal NONE SEEN [facility] Comment on above: Performed By: #### Med SHER UMICRO #### [facility] [address] [place] [address] Dr. Eran Chacon Epithelial cells LM Ql (Urine sed) RARE Normal NONE SEEN /RARE [facility] Comment on above: Performed By: #### Med SHER UMICRO #### [facility] [address] [place] [address] Dr. Eran Chacon MUCOUS NONE SEEN Normal NONE SEEN [facility] Comment on above: Performed By: #### Med SHER UMICRO #### [facility] [address] [place] [address] Dr. Eran Chacon RBC 0-2 Normal 0-2 [facility] Comment on above: Performed By: #### HANNA BATES #### [facility] [address] [address] [address] Eran Chacon WBC 2-5 Abnormal NONE SEEN [facility] Comment on above: Performed By: #### HANNA BATES #### [facility] [address] [address] [address] Eran Chacon MRI SHOULDER LT WO [...] YEISON NAVAS Date: 2022-02-02 17:09 Normal [facility] XR shoulder LT min 2V*on XR shoulder LT min 2V* [facility] Main [address] [address] XRay Report Signed Patient: Nicholas Ziegler MR#: [id number] : 1960 Acct:[id number] Age/Sex: 61 / M ADM Date: 01/25/22 Loc: [facility] [place] Room: Type: [facility] Attending Dr: [...] Otilia Nunez M.D.01/25/2022 11:41 AM Dictation Location: [place] [address] Transcribed By: [facility] 01/25/22 1141 Dictated By: Otilia Nunez MD 01/25/22 1139 Signed By: 01/25/22 1141 Normal [facility] Vital Signs Date Time Vital Sign Value Performing Clinician Facility 03-18-2024 08:46-0400 Body height 175.26 cm [facility] 03-18-2024 08:46-0400 Body mass index (BMI) [Ratio] 34.4 kg/m2 [facility] 03-18-2024 08:46-0400 Body weight 105.68 kg [facility] 03-18-2024 08:46-0400 Diastolic blood pressure 80 mm[Hg] [facility] 03-18-2024 08:46-0400 Heart rate 72 /min [facility] 03-18-2024 08:46-0400 Systolic blood pressure 130 mm[Hg] [facility] 03-03-2024 11:54-0400 Body height 175.26 cm [facility] 03-03-2024 11:54-0400 Body mass index (BMI) [Ratio] 34.7 kg/m2 [facility] 03-03-2024 11:54-0400 Body weight 106.59 kg [facility] 03-03-2024 11:54-0400 Diastolic blood pressure 81 mm[Hg] [facility] 03-03-2024 11:54-0400 Heart rate 69 /min [facility] 03-03-2024 11:54-0400 Systolic blood pressure 129 mm[Hg] [facility] 12-17-2023 08:54-0400 Body height 175.26 cm [facility] 12-17-2023 08:54-0400 Body mass index (BMI) [Ratio] 35.2 kg/m2 [facility] 12-17-2023 08:54-0400 Body weight 108.4 kg [facility] 12-17-2023 08:54-0400 Diastolic blood pressure 76 mm[Hg] [facility] 12-17-2023 08:54-0400 Heart rate 76 /min [facility] 12-17-2023 08:54-0400 Systolic blood pressure 154 mm[Hg] [facility] 12-05-2023 08:52-0400 Body height 175.26 cm [facility] 12-05-2023 08:52-0400 Body mass index (BMI) [Ratio] 35 kg/m2 [facility] 12-05-2023 08:52-0400 Body weight 107.67 kg [facility] 12-05-2023 08:52-0400 Diastolic blood pressure 78 mm[Hg] [facility] 12-05-2023 08:52-0400 Heart rate 69 /min [facility] 12-05-2023 08:52-0400 Systolic blood pressure 147 mm[Hg] [facility] 09-13-2023 13:30-0500 Body height 175.26 cm Hannah Magallanes Other [facility] 09-13-2023 13:30-0500 Body mass index (BMI) [Ratio] 33.22 kg/m2 Hannah Magallanes Other [facility] Other 09-13-2023 13:30-0500 Body temperature 98.4 [degF] Hannah Magallanes Other [facility] Other 09-13-2023 13:30-0500 Body weight 102.06 kg Hannah Magallaens Other [facility] Other 09-13-2023 13:30-0500 Body weight 102.05 kg [facility] 09-13-2023 13:30-0500 Diastolic blood pressure 80 mm[Hg] Hannah Magallanes Other [facility] 09-13-2023 13:30-0500 SaO2% (BldA) [Mass fraction] 93 % Hannah Magallanes Other [facility] Other 09-13-2023 13:30-0500 Systolic blood pressure 118 mm[Hg] Hannah Magallanes Other [facility] 08-13-2023 10:30-0500 Body height 175.26 cm Hannah Magallanes Other [facility] Other 08-13-2023 10:30-0500 Body mass index (BMI) [Ratio] 33.9 kg/m2 Hannah Magallanes Other [facility] Other 08-13-2023 10:30-0500 Body weight 104.15 kg Hannah Magallanes Other [facility] Other 08-13-2023 10:30-0500 Diastolic blood pressure 78 mm[Hg] Hannah Magallanes Other [facility] Other 08-13-2023 10:30-0500 Systolic blood pressure 124 mm[Hg] Hannah Magallanes Other [facility] Other 06-25-2023 08:45-0500 Body height 175.26 cm Hannah Magallanes Other [facility] Other 06-25-2023 08:45-0500 Body mass index (BMI) [Ratio] 33.37 kg/m2 Hannah Magallanes Other [facility] Other 06-25-2023 08:45-0500 Body temperature 96.5 [degF] Hannah Magallanes Other [facility] Other 06-25-2023 08:45-0500 Body weight 102.51 kg Hannah Magallanes Other [facility] Other 06-25-2023 08:45-0500 Diastolic blood pressure 85 mm[Hg] Hannah Magallanes Other [facility] Other 06-25-2023 08:45-0500 Systolic blood pressure 149 mm[Hg] Hannah Magallanes Other [facility] Other 05-28-2023 10:45-0400 Body height 175.26 cm Hannah Magallanes Other [facility] Other 05-28-2023 10:45-0400 Body mass index (BMI) [Ratio] 33.52 kg/m2 Hannah Magallanes Other [facility] Other 05-28-2023 10:45-0400 Body weight 102.97 kg Hannah Magallanes Other [facility] Other 05-28-2023 10:45-0400 Diastolic blood pressure 82 mm[Hg] Hannah Magallanes Other [facility] Other 05-28-2023 10:45-0400 Systolic blood pressure 147 mm[Hg] Hannah Magallanes Other [facility] Other 2023 08:45-0400 Body height 175.26 cm Hannah Magallanes Other [facility] Other 2023 08:45-0400 Body mass index (BMI) [Ratio] 33.52 kg/m2 Hannah Magallanes Other [facility] Other 2023 08:45-0400 Body weight 102.97 kg Hannah Magallanes Other [facility] Other 2023 08:45-0400 Diastolic blood pressure 85 mm[Hg] Hannah Magallanes Other [facility] Other 2023 08:45-0400 Systolic blood pressure 156 mm[Hg] Hannah Magallanes Other [facility] Other 04-30-2023 09:45-0400 Body height 175.26 cm Hannah Magallanes Other [facility] Other 04-30-2023 09:45-0400 Body mass index (BMI) [Ratio] 34.32 kg/m2 Hannah Magallanes Other [facility] Other 04-30-2023 09:45-0400 Body temperature 96.2 [degF] Hannah Magallanes Other [facility] Other 04-30-2023 09:45-0400 Body weight 105.42 kg Hannah Magallanes Other [facility] Other 04-30-2023 09:45-0400 Diastolic blood pressure 78 mm[Hg] Hannah Magallanes Other [facility] Other 04-30-2023 09:45-0400 Respiratory rate 16 /min Hannha Magallanes Other [facility] Other 04-30-2023 09:45-0400 Systolic blood pressure 146 mm[Hg] Hannah Magallanes Other [facility] Other 02-20-2023 09:15-0400 Body height 175.26 cm Hannah Magallanes Other [facility] Other 02-20-2023 09:15-0400 Body mass index (BMI) [Ratio] 33.46 kg/m2 Hannah Magallanes Other [facility] Other 02-20-2023 09:15-0400 Body weight 102.79 kg Hannah Magallanes Other [facility] Other 02-20-2023 09:15-0400 Diastolic blood pressure 77 mm[Hg] Hannah Magallanes Other [facility] Other 02-20-2023 09:15-0400 Systolic blood pressure 131 mm[Hg] Hannah Magallanes Other [facility] Other 01-17-2023 08:45-0400 Body height 175.26 cm Hannah Magallanes Other [facility] Other 01-17-2023 08:45-0400 Body mass index (BMI) [Ratio] 33.37 kg/m2 Hannah Magallanes Other [facility] Other 01-17-2023 08:45-0400 Body weight 102.51 kg Hannah Magallanes Other [facility] Other 01-17-2023 08:45-0400 Diastolic blood pressure 79 mm[Hg] Hannah Magallanes Other [facility] Other 01-17-2023 08:45-0400 Systolic blood pressure 128 mm[Hg] Hannah Magallanes Other [facility] Other 11-23-2022 09:30-0400 Body height 175.26 cm Hannah Magallanes Other [facility] Other 11-23-2022 09:30-0400 Body mass index (BMI) [Ratio] 33.96 kg/m2 Hannah Magallanes Other [facility] Other 11-23-2022 09:30-0400 Body weight 104.33 kg Hannah Magallanes Other [facility] Other 11-23-2022 09:30-0400 Diastolic blood pressure 72 mm[Hg] Hannah Magallanes Other [facility] Other 11-23-2022 09:30-0400 Systolic blood pressure 122 mm[Hg] Hannah Magallanes Other [facility] Other 09-04-2022 11:30-0500 Body height 175.26 cm Hannah Magallanes Other [facility] Other 09-04-2022 11:30-0500 Body mass index (BMI) [Ratio] 33.52 kg/m2 Hannah Magallanes Other [facility] Other 09-04-2022 11:30-0500 Body weight 102.97 kg Hannah Magallanes Other [facility] Other 09-04-2022 11:30-0500 Diastolic blood pressure 80 mm[Hg] aHnnah Magallanes Other [facility] Other 09-04-2022 11:30-0500 SaO2% (BldA) [Mass fraction] 95 % Hannah Magallanes Other [facility] Other 09-04-2022 11:30-0500 Systolic blood pressure 122 mm[Hg] Hannah Magallanes Other [facility] Other 02-06-2022 12:45-0400 Body height 175.26 cm Kesha Olexa Other [facility] Other 02-06-2022 12:45-0400 Body mass index (BMI) [Ratio] 31.01 kg/m2 Kesha Olexa Other [facility] Other 02-06-2022 12:45-0400 Body weight 95.26 kg Kesha Olexa Other [facility] Other 05-26-2021 13:15-0400 Body height 175.26 cm Harriet Ginty Other [facility] Other 05-26-2021 13:15-0400 Body mass index (BMI) [Ratio] 31.01 kg/m2 Harriet Ginty Other [facility] Other 05-26-2021 13:15-0400 Body temperature 98.3 [degF] Harriet Ginty Other [facility] Other 05-26-2021 13:15-0400 Body weight 95.26 kg Harriet Johnsonneelam Other [facility] Other 05-26-2021 13:15040 SaO2% (BldA) [Mass fraction] 96 % Harriet Johnsonkizzycristiano Other [facility] Other Encounters Encounter Date Encounter Type Care Provider Facility Start: 04-07-2024 End: 04-07-2024 ambulatory MALATHI SANCHEZ Not Available Start: 04-06-2024 End: 04-06-2024 ambulatory Zacarias Pike MD Facility:[facility] Start: 03-18-2024 End: 03-18-2024 ambulatory [facility] Work Phone: Start: 03-18-2024 End: 03-18-2024 Patient encounter procedure [facility] Work Phone: Start: 03-16-2024 End: 03-16-2024 ambulatory Zacarias Pike MD Facility:[facility] Start: 03-03-2024 End: 03-03-2024 ambulatory [facility] Work Phone: Start: 03-03-2024 End: 03-03-2024 Patient encounter procedure [facility] Work Phone: Start: 02-27-2024 Non-patient / Non-visit [employer] [employer] [facility] Work Phone: Start: 02-24-2024 End: 02-24-2024 ambulatory Zacarias Pike MD Facility:[facility] Start: 02-03-2024 End: 02-03-2024 ambulatory Zacarias Pike MD Facility:[facility] Start: 01-20-2024 End: 01-20-2024 ambulatory Zacarias Pike MD Facility:[facility] Start: 12-17-2023 End: 12-17-2023 ambulatory [facility] Work Phone: Start: 12-17-2023 End: 12-17-2023 Patient encounter procedure [facility] Work Phone: Start: 12-05-2023 End: 12-05-2023 ambulatory [facility] Work Phone: Start: 12-05-2023 End: 12-05-2023 Patient encounter procedure [facility] Work Phone: Start: 10-23-2023 Non-patient / Non-visit [facility] Work Phone: Start: 10-08-2023 Non-patient / Non-visit [facility] Work Phone: Start: 10-07-2023 End: 10-07-2023 ambulatory BARBIE TAPIA Not Available Start: 09-18-2023 End: 09-18-2023 ambulatory Hannah Magallanes Other [facility] Other Start: 09-18-2023 Telephone encounter Hannah Magallanes [facility] Start: 09-13-2023 End: 09-13-2023 ambulatory Hannah Magallanes Other [facility] Other Start: 09-13-2023 Office outpatient vi sit 15 minutes Hannah Magallanes [facility] Start: 09-13-2023 End: 09-13-2023 Patient encounter procedure [facility]- Start: 09-11-2023 Telephone encounter [place] [...] 09-10-2023 End: 09-10-2023 ambulatory Hannah Sona Other [facility] Other Start: 09-10-2023 Telephone encounter Hannah Sona [facility] Start: 09-06-2023 End: 09-06-2023 ambulatory Hannah Magallanes Other [facility] Other Start: 09-06-2023 Telephone encounter Hannah Sona [facility] Start: 09-02-2023 End: 09-02-2023 ambulatory HI POCOS Not Available Start: 08-20-2023 End: 08-20-2023 ambulatory Hannah Sona Other [facility] Other Start: 08-20-2023 Telephone encounter Hannah Sona [facility] Start: 08-13-2023 End: 08-13-2023 ambulatory Hannah Sona Other [facility] Other Start: 08-13-2023 Office outpatient vi sit 25 minutes Hannah Sona [facility] Start: 08-13-2023 Telephone encounter Hannah Magallanes [facility] Start: 08-06-2023 End: 08-06-2023 ambulatory Hannah Sona Other [facility] Other Start: 08-06-2023 Telephone encounter Hannah Sona [facility] Start: 07-29-2023 End: 07-29-2023 ambulatory HI POCOS Not Available Start: 07-22-2023 End: 07-22-2023 ambulatory Hannah Magallanes Other [facility] Other Start: 07-22-2023 Telephone encounter Hannah Sona [facility] Start: 07-19-2023 End: 07-19-2023 ambulatory Hannah Sona Other [facility] Other Start: 07-19-2023 Telephone encounter Hannah Sona [facility] Start: 07-18-2023 End: 07-18-2023 ambulatory Hannah Sona Other [facility] Other Start: 07-18-2023 Telephone encounter Hannah Sona [facility] Start: 07-02-2023 End: 07-02-2023 ambulatory Hannah Sona Other [facility] Other Start: 07-02-2023 Office outpatient vi sit 15 minutes Hannah Sona [facility] Start: 07-02-2023 Telephone encounter Hannah Magallanes [facility] Start: 06-25-2023 End: 06-25-2023 ambulatory Hannah Sona Other [facility] Other Start: 06-25-2023 Office outpatient vi sit 15 minutes Hannah Sona [facility] Start: 06-21-2023 End: 06-21-2023 ambulatory Hannah Sona Other [facility] Other Start: 06-21-2023 Encounter by compute r link Hannah Sona [facility] Start: 06-20-2023 End: 06-20-2023 ambulatory Hannah Sona Other [facility] Other Start: 06-20-2023 Telephone encounter Hannah Magallanes [facility] Start: 06-17-2023 End: 06-17-2023 ambulatory Hannah Sona Other [facility] Other Start: 06-17-2023 Telephone encounter Hannah Magallanes [facility] Start: 06-10-2023 End: 06-10-2023 ambulatory Hannah Sona Other [facility] Other Start: 06-10-2023 Telephone encounter Hannah Magallanes [facility] Start: 06-03-2023 End: 06-03-2023 ambulatory Hannah Magallanes Other [facility] Other Start: 06-03-2023 Telephone encounter Hannah Magallanes [facility] Start: 05-30-2023 End: 05-31-2023 ambulatory Ih Pocos [place] Start: 05-30-2023 End: 05-30-2023 Patient encounter procedure Hi Pocdoron [facility] Start: 05-28-2023 End: 05-28-2023 ambulatory Hannah Sona Other [facility] Other Start: 05-28-2023 Office outpatient vi sit 15 minutes Hannah Magallanes [facility] Start: 2023 End: 2023 ambulatory Hannah Magallanes Other [facility] Other Start: 2023 Office outpatient vi sit 15 minutes Hannah Magallanes [facility] Start: 05-16-2023 End: 05-16-2023 ambulatory Hannah Sona Other [facility] Other Start: 05-16-2023 Telephone encounter Hannah Magallanes [facility] Start: 04-30-2023 End: 04-30-2023 ambulatory Hannah Magallanes Other [facility] Other Start: 04-30-2023 Office outpatient vi sit 15 minutes Hannah Magallanes [facility] Start: 04-26-2023 End: 04-26-2023 ambulatory Hannah Magallanes Other [facility] Other Start: 04-26-2023 Telephone encounter Hannah Magallanes [facility] Start: 04-23-2023 End: 04-23-2023 ambulatory Hannah Sona Other [facility] Other Start: 04-23-2023 Telephone encounter Hannah Magallanes [facility] Start: 03-25-2023 End: 03-25-2023 ambulatory Hannah Magallanes Other [facility] Other Start: 03-25-2023 Telephone encounter Hannah Magallanes [facility] Start: 03-06-2023 End: 03-06-2023 ambulatory Hannah Magallanes Other [facility] Other Start: 03-06-2023 Telephone encounter Hannah Magallanes [facility] Start: 02-20-2023 End: 02-20-2023 ambulatory Hannah Sona Other [facility] Other Start: 02-20-2023 Office outpatient vi sit 25 minutes Hannah Magallanes [facility] Start: 02-05-2023 End: 02-05-2023 ambulatory Hannah Sona Other [facility] Other Start: 02-05-2023 Telephone encounter Hannah Magallanes [facility] Start: 01-21-2023 End: 01-21-2023 ambulatory Hannah Sona Other [facility] Other Start: 01-21-2023 Telephone encounter Hannah Sona [facility] Start: 01-17-2023 End: 01-17-2023 ambulatory Hannah Magallanes Other [facility] Other Start: 01-17-2023 Office outpatient vi sit 15 minutes Hannah Magallanes [facility] Start: 12-24-2022 End: 12-24-2022 ambulatory Hannah Sona Other [facility] Other Start: 12-24-2022 Telephone encounter Hannah Magallanes [facility] Start: 12-03-2022 End: 12-03-2022 ambulatory Hannah Magallanes Other [facility] Other Start: 12-03-2022 Telephone encounter Hannah Sona [facility] Start: 11-27-2022 End: 11-27-2022 ambulatory Hannah Magallanes Other [facility] Other Start: 11-27-2022 Telephone encounter Hannah Magallanes [facility] Start: 11-26-2022 End: 11-26-2022 ambulatory Hannah Magallanes Other [facility] Other Start: 11-26-2022 Telephone encounter Hannah Magallanes [facility] Start: 11-24-2022 End: 11-25-[address] HANNAH MAGALLANES Facility:[facility] Start: 11-23-2022 End: 11-23-2022 ambulatory Hannah Magallanes Other [facility] Other Start: 11-23-2022 Office outpatient vi sit 15 minutes Hannah Magallanes [facility] Start: 11-05-2022 End: 11-05-2022 ambulatory Hannah Sona Other [facility] Other Start: 11-05-2022 Telephone encounter Hannah Magallanes [facility] Start: 10-03-2022 End: 10-03-2022 ambulatory Hannah Magallanes Other [facility] Other Start: 10-03-2022 Telephone encounter Hannah Magallanes [facility] Start: 09-04-2022 End: 09-04-2022 ambulatory Hannah Magallanes Other [facility] Other Start: 09-04-2022 Office outpatient vi sit 25 minutes Hannah Magallanes [facility] Start: 07-26-[address] HANNAH MAGALLANES Facil ity:[facility] Start: 07-19-2022 End: 07-20-[address] WILFREDO ENGLE Facility:[facility] Start: 06-07-2022 End: 06-07-[address] HANNAH MAGALLANES Facility:[facility] Start: 03-15-2022 ambulatory KESHA TRUJILLO Facility:[facility] Start: 02-06-2022 End: 02-06-2022 ambulatory Kesha Trujillo Other [facility] Other Start: 02-06-2022 Office outpatient vi sit 25 minutes Kesha Trujillo [facility] Start: 02-02-2022 End: 02-03-2022 ambulatory KESHA TRUJILLO Facility:[facility] Start: 12-28-2021 End: 12-28-[address] HANNAH MAGALLANES Facility:[facility] Start: 12-12-2021 End: 12-13-2021 ambulatory KESHA TRUJILLO [facility] Other Start: 12-12-2021 Office outpatient ne w [...] Activity Detail Author Start: 03-18-2024 Patient referral [facility] Work Phone: Start: 10-07-2023 End: 10-07-2023 Patient encounter procedure 10/07/2023 8:00 AM EST Office Visit [facility] [address] [place] [address] Barbie Tapia DO [address] [place] [address] [facility]TH[facility] CT Chest WO contrast [facility] Patient referral [facility] Work Phone: XR Pelvis and Hip - bilateral Views [facility] Immunizations Immunization Date Immunization Notes Care Provider Leon escalera 06-02-2018 Influenza, injectabl e, Madin Kyleigh Canine Kidney, preservative free, quadrivalent Argentina Clinton PT Work Phone: [facility] 05-17-2017 influenza virus vaccine, split virus (incl. purified surface antigen) Hannah Magallanes Other [facility] Other 05-17-2017 influenza virus vaccine, unspecified formulation [facility] 05-16-2017 influenza, injectabl e, quadrivalent, preservative free Argentina Clinton PT Work Phone: [facility] 06-28-2016 influenza, injectabl e, quadrivalent, preservative free Argentina Clinton PT Work Phone: [facility] 06-28-2016 tetanus and diphther ia toxoids, adsorbed, preservative free, for adult use (5 Lf of tetanus toxoid and 2 Lf of diphtheria toxoid) Hannah Magallanes Other [facility] 05-25-2015 influenza, seasonal, injectable, preservative free Argentina Clinton PT Work Phone: [facility] 05-25-2015 tetanus and diphther ia toxoids, adsorbed, preservative free, for adult use (5 Lf of tetanus toxoid and 2 Lf of diphtheria toxoid) Hannah Magallanes Other [facility] 06-15-1999 pneumococcal conjuga te vaccine, 7 valent Argentina Clinton PT Work Phone: [facility] Payers Date Payer Category Payer Medicaid [id number] 2013 Medicare [id number] 1960 Unknown [id number] 2.16.84 0.1.789268.3.579.2.593 1960 Unknown [id number] 2.16.84 0.1.920319.3.579.2.593 1960 Unknown [id number] 2.16.84 0.1.931692.3.579.2.593 1960 Unknown [id number] 2.16.84 0.1.278191.3.579.2.593 1960 Unknown [id number] 2.16.84 0.1.756474.3.579.2.593 1960 Unknown [id number] 2.16.84 0.1.949955.3.579.2.593 1960 Unknown [id number] 2.16.84 0.1.087057.3.579.2.593 1960 Unknown [id number] 2.16.84 0.1.739300.3.579.2.593 1960 Unknown [id number] 2.16.8 40.1.142989.3.579.2.727 1960 Unknown [id number] 2.16.84 0.1.367120.3.579.2.1259 1960 Unknown [id number] 2.16.84 0.1.468840.3.579.2.1259 1960 Unknown [id number] 2.16.84 0.1.424180.3.579.2.1259 1960 Unknown [id number] 2.16.84 0.1.718146.3.579.2.1259 1960 Unknown [id number] 2.16.840 .1.797205.3.579.2.1259 1960 Unknown [id number] 2.16. 840.1.155000.3.579.2.196 1960 Unknown [id number] 2.16. 840.1.774177.3.579.2.196 1960 Unknown [id number] 2.16. 840.1.415065.3.579.2.196 1960 Unknown [id number] 2.16. 840.1.315954.3.579.2.196 1960 Unknown [id number] 2.16. 840.1.741898.3.579.2.196 1959 Medicaid [id number] 2. 16.840.1.106244.19 1959 Medicare [id number] 2.1 [id number] Self-pay Self Pay [id number] Social History Date Type Detail Facility Start: 09-02-2023 Sex Assigned At [facility] Tobacco smoking status No Smokin g Status Entered [facility] Start: 03-27-2023 Tobacco smoking status HIIS Smokes tobacco daily [facility] Work Phone: History of tobacco [...] [facility] Start: 02-06-2017 Tobacco smoking status HIIS [facility] ([facility] [facility] Procedure Code Equipment Code Equipment [...] attempts to hear back; closing referral. [facility] 10-02-2023 Miscellaneous Notes Formattin g of this note might be different from the original. No attempts to hear back; closing referral. documented in this encounter [facility] 09-13-2023 Evaluation note Encounter Date Diagnosis Assessment Notes Aug, Chronic obstructive pulmonary disease, unspecified (ICD-10 - J44.9) Finish antibiotics and prednisone as prescribed. Denies pulmonary referral at this time. Hasn't smoked since 09/08 and declines chantix or patches. Aug, Current smoker (ICD-10 - F17.200) [facility] Other 01-23-2024 Evaluation note* Encounter Date Diagnosis Assessment Notes Treatment Notes Treatment Clinical Notes Aug, Lumbar radicular pain (ICD-10 - M54.16) [facility] Other 01-19-2024 Evaluation note* Encounter Date Diagnosis Assessment Notes Treatment Notes Treatment Clinical Notes Aug, Lumbar radicular pain (ICD-10 - M54.16) [facility] 12-26-2023 Evaluation note* Encounter Date Diagnosis Assessment Notes Treatment Notes Treatment Clinical Notes Jul, Type 2 diabetes mellitus with hyperglycemia, without long-term current use of insulin (ICD-10 - E11.65) [facility] Other 12-26-2023 Evaluation note* Encounter Date Diagnosis [...] T3s after shoulder pain has improved post-operatively. [facility] Other 12-04-2023 Evaluation note* Encounter Date Diagnosis Assessment Notes Treatment Notes Treatment Clinical Notes Jul, Type 2 diabetes mellitus with hyperglycemia, without long-term current use of insulin (ICD-10 - E11.65) [facility] Other 12-01-2023 Evaluation note* Encounter Date Diagnosis Assessment Notes Treatment Notes Treatment Clinical Notes Jul, Type 2 diabetes mellitus with hyperglycemia, without long-term current use of insulin (ICD-10 - E11.65) [facility] 11-30-2023 Evaluation note* Encounter Date Diagnosis Assessment Notes Treatment Notes Treatment Clinical Notes Jun, Labral tear of shoulder, right, subsequent encounter (ICD-10 - S43.431D) [facility] Other 11-14-2023 Evaluation note* Encounter Date Diagnosis [...] pain (ICD-10 - R07.9) r/o cardiac cause [facility] 11-07-2023 Evaluation note* Encounter Date Diagnosis [...] to decrease dose and possibly discontinue medication. [facility] Other 11-02-2023 Evaluation note* Encounter Date Diagnosis Assessment Notes Treatment Notes Treatment Clinical Notes Jun, Acute pain of right shoulder (ICD-10 - M25.511) [facility] Other 10-30-2023 Evaluation note* Encounter Date Diagnosis Assessment Notes Treatment Notes Treatment Clinical Notes May, Acute pain of right shoulder (ICD-10 - M25.511) [facility] 10-23-2023 Evaluation note* Encounter Date Diagnosis Assessment Notes Treatment Notes Treatment Clinical Notes May, Acute pain of right shoulder (ICD-10 - M25.511) [facility] 10-16-2023 Evaluation note* Encounter Date Diagnosis Assessment Notes Treatment Notes Treatment Clinical Notes May, Acute pain of right shoulder (ICD-10 - M25.511) [facility] Other 10-10-2023 Evaluation note* Encounter Date Diagnosis Assessment Notes Treatment Notes Treatment Clinical Notes May, Acute pain of right shoulder (ICD-10 - M25.511) MRI and surgery planning pending. Pt understands this is a controlled substance and to call in 1 week w update on treatment plan. May, Bronchitis (ICD-10 - J40) Finish antibiotic, rest, hydrate Steroids for wheezing. [facility] Other 10-04-2023 Evaluation note* Encounter Date Diagnosis Assessment Notes Treatment Notes Treatment Clinical Notes May, Acute pain of right shoulder (ICD-10 - M25.511) Reviewed [place] and discussed short term plan of increase in pain medication. He is due for a refill of the T3s presently. Stop them, replace w norco. Pt understands weekly prescription and will need to d/c after anticipated surgery. [facility] Other 09-12-2023 Evaluation note* Encounter Date Diagnosis [...] office and the ER visit on 04/26 [facility] 07-05-2023 Evaluation note* Encounter Date Diagnosis [...] and will need less prn pain med. [facility] Other 06-01-2023 Evaluation note* Encounter Date Diagnosis [...] left shoulder (ICD-10 - M25.512) as above. [facility] Other 04-17-2023 Evaluation note* Encounter Date Diagnosis Assessment Notes Treatment Notes Treatment Clinical Notes Nov, Bronchitis (ICD-10 - J40) [facility] Other 04-11-2023 Evaluation note* Encounter Date Diagnosis Assessment Notes Treatment Notes Treatment Clinical Notes Nov, Disc degeneration, lumbar (ICD-10 - M51.36) Nov, Lumbar radicular pain (ICD-10 - M54.16) [facility] Other 04-07-2023 Evaluation note* Encounter Date Diagnosis [...] quit smoking. Pt verbalizes understanding and agreement. [facility] Other 02-15-2023 Evaluation note* Encounter Date Diagnosis Assessment Notes Treatment Notes Treatment Clinical Notes Sep, Lumbar radicular pain (ICD-10 - M54.16) [facility] Other 01-17-2023 Evaluation note* Encounter Date Diagnosis [...] is outlined on the test result page. [facility] Other 10-20-2022 NoteIndication: Calculus in kidney. Comparison: [...] Electronically authenticated by: JOHN PINTO Date: 2022-06-07 20:07[facility]06[facility]21-[facility] Evaluation note* Encounter Date Diagnosis Assessment [...] of infection, hardware pullout, cuff repair failure, correction pain and stiffness are well known problems [...] of repair, infection and wound healing delays. [facility] Other 04-26-2022 NotePROCEDURE: XR SHOULDER LT 2V or > COMPARISON: None. HISTORY: Pain of left shoulder joint FINDINGS: BONES:No acute fracture or dislocation. 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 No visible soft tissue swelling. EFFUSION:None visible. OTHER: Negative. IMPRESSION: Mild osteoarthritis Electronically authenticated by: BARBIE MEMBRENO Date: 2021-12-12 15:25[id number] note* Encounter Date Diagnosis Assessment Notes [...] pain of left shoulder (ICD-10 - M25.512) [facility] Other 10-08-2021 Evaluation note* Encounter Date Diagnosis [...] as needed for cough. Advised patient that [place] contains antihistamine and cough suppressant and to be cautious using other OTC cold medications. Patient to follow up with PCP if symptoms do not improve. Immediate eval if SOB, difficulty breathing, chest pain, dizziness, or other concerning symptoms. Patient verbalizes understanding and is agreeable to treatment plan [facility] [facility] Other Evaluation + Plan note No data available for this section [facility] noteNo InformationNort [facility] Other Evaluation note* Diagnosis Onset Date Resolution Status Arthralgia acute Lumbar pain acute Type II diabetes mellitus ac cole [facility] Work Phone: Evaluation note* Diagnosis Onset Date Resolution Status Arthralgia acute Lumbar pain acute Type II diabetes mellitus ac cole Bilateral hip pain acute [facility] Work Phone: Evaluation note* Diagnosis Onset Date Resolution Status Arthralgia acute Lumbar pain acute Type II diabetes mellitus ac cole Bilateral hip pain acute Lumbar pain acute [facility] Work Phone: Evaluation note* Diagnosis Onset Date Resolution Status Submandibular abscess acute Chronic obstructive pulmonary disease, unspecified acute Esophageal abnormality acute Mass of left submandibular region acute [facility] Work Phone: History general Narrative - Reported* Type Description Date Medical History Asthma Medical History skin cancer-lip Surgical History Left lung biopsy 1977 Surgical History L4 and L5 disc fusion 1984 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 Surgical History carpal tunnel release 2016 Surgical History tonsillectomy Hospitalization History 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 Hospitalization History pneumonia [facility] [employer] Other Hospital Discharge instructions No data available for this section [facility] instructionsAmbulatory Orders* Referral to ENT Time Frame: 03/18/24, Location: None [facility] Work Phone: Progress note No data available for this section [facility] Summary Purpose Family History No Family History [...] abdominal pain (R10.13) Referral Organization [facility] omar Referring Provider First Name Hnanah Referring Provider Last Name Sona Referring Provider Specialty [facility] Referred Organization [facility] Referred Provider Sai Martinez Referred Address ,[place], [place],[address] Referred Provider Specialty Surgery Referral Priority Routine General Notes Es Camilo 11:38:02 AM >received today, attachments made, notes locked, referral faxed Reason 01/28/23 Access [facility] tho - B shoulder pain L>R - hopes for injections. Diagnosis 1 Pain in right should er (M25.511) Referral Organization [facility] omar Referring Provider First Name Hannah Referring Provider Last Name Sona Referring Provider Specialty [facility] Referred Organization [facility] Referred Provider Barbie Tapia Referred Address ,[place], [place],[address] Referred Provider Specialty Orthopaedic Surgery Referral Priority Routine Referral Appointment Date 2023-01-28 General Notes sE Camilo 03:00:30 PM >received today, notes note [...] in right should er (M25.511) Referral Organization [facility] [employer]mar Referring Provider First Name Hannah Referring Provider Last Name Sona Referring Provider Specialty [facility] [place] Referred Organization [facility] Referred Provider Barbie Tapia Referred Address ,[place], [place],[address] Referred Provider Specialty Orthopaedic Surgery Referral Priority [...] section and content) DATE CREATED AUTHOR 02/10/2022 [facility] DATE CREATED AUTHOR AUTHOR'S ORGANIZ ATION [facility]2022 [facility] DATE CREATED AUTHOR AUTHOR'S ORGANIZ ATION 06/01/2023 [facility] DATE CREATED AUTHOR AUTHOR'S ORGANIZ ATION 04/08/2024 [facility] DATE CREATED AUTHOR AUTHOR'S ORGANIZ ATION 04/17/2024 [facility] Patient Care team informatio n [...] Provider Active Start : October 23, 2023 [employer] Relationship Specialty Start Date End Date Hannah Magallanes MD [address] [place] [id number] PCP - General Family Medicine 01/23/23 Team [...] BE BASED ON THE PRIMARY CLINICAL RECORDS. [facility] [facility]. provides no warranty or guarantee of the accuracy or completeness of information in this document.
[2024-05-18 06:58] VITALS: BP 137/83; PULSE 78; TEMP 36.6; O2SAT 98
[2024-05-18 07:15] LABS: Glucometer 191 mg/dL (74-106)
[2024-05-18 07:42] VITALS: BP 142/75; PULSE 83; O2SAT 96
[2024-05-18 07:44] VITALS: BP 130/78; PULSE 78; O2SAT 96
--- NOTE | 2024-05-18 07:46 | W.PM.PROCNOT ---
Date of procedure: 05/18/24 Pre-op diagnosis: Pain due to lumbar stenosis with neurogenic claudication Post-op diagnosis: same as pre-op Procedure: Procedure: Bilateral L4-5 transforaminal epidural steroid injection Medications: Bupivacaine 0.25% 2cc, lidocaine 2% 1cc, kenalog 80mg The patient was seen and examined in the preoperative holding area.? Informed consent was obtained and placed on the chart.? Patient was brought to the medical procedure unit and placed in the prone position where a timeout was completed verifying the correct patient, procedure site, position, and planned special equipment using sterile aseptic technique.? Under direct fluoroscopic visualization a 25-gauge Quincke tipped spinal needle was advanced at level left L4-5 to the designated neural foramen.? The above-mentioned injectate was then placed in a 1.5 mL aliquot preceded by negative aspiration.? The needle was removed. The same procedure, at the same level, was completed on the opposite side. ? Patient was taken to the postprocedural recovery area and monitored for an appropriate length of time before found suitable for discharge in the accompaniment of a responsible adult. Anesthesia: Local Surgeon: Zacarias Pike Pathology: none sent Condition: stable Disposition: no change
[2024-05-18] MEDS: 0.9 % SODIUM CHLORIDE 10 ML SYRINGE - SALINE FLUSH INJ (07:47)
[2024-05-18] MEDS: BUPIVACAINE HCL 0.25% PF 25 MG/10 ML VIAL INJ (07:48)
[2024-05-18] MEDS: TRIAMCINOLONE ACETONIDE 40 MG/ML VIAL 80 MG INJ (07:48)
[2024-05-18] MEDS: LIDOCAINE HCL 2% 400 MG/20 ML MDV 3 ML INJ (07:48)
== END 2024-05-18 07:54 | disposition home or self-care (01) ==
LOC: SURGOUT 06:48
PROVIDERS: PCP Family Medicine; Visit Provider Anesthesiology
DX: M48.062 Spinal stenosis, lumbar region with neurogenic claudication (principal)
CPT/HCPCS: 36415; 64483; 82948; J0665; J3301

== ENCOUNTER 2024-05-27 07:36 | Outpatient (OUT) | payer MEDICARE, SELFPAY ==
--- OUTSIDE RECORDS SUMMARY | 2024-05-27 07:39 | XMS_ITS | CCD ---
Author Organization [facility] CliniSyky Care Team Providers Care Can Capper Name Role Phone Kesha Trujillo Unavailable Chepe Harriet Unavailable Hannah Magallanes Unavailable SONA, DR HANNAH Jovel Admitting Unavailable MAGALLANES, DR HANNAH Jovel Attending Unavailable MAGALLANES, DR HANNAH Jovel Primary Care Unavailable MAGALLANES, DR HANNAH Jovel Consulting Unavailable TAVERAS, RUBI Consulting Unavailable OLEXA, KESHA Admitting Unavailable OLEXA, KESHA Attending Unavailable MAGALLANES, DR HANNAH Jovel Primary Care Unavailable SMYRNA, DR BARBIE Goldberg Consulting Unavailable OLEXA, KESHA [...] Care Provider POCDORON, BARBIE Tellez Attending Unavailable POCBARBIE SAL Referring Unavailable POCBARBIE SAL Attending Unavailable MALATHI SANCHEZ Attending Unavailable HANNAH MAGALLANES Referring Unavailable BARBIE TAPIA Attending Unavailable Giedraitis , Zacarias Miranda Attending Unavailable Giedraitis MD, Zacarias Miranda Attending Unavailable Giedraitis MD, Andgloria Miranda Attending Unavailable Giedraitis MD, Andrius Miranda Attending Unavailable Giedraitis MD, Andrius Ruth Attending Unavailable Giedraitis MD, Andrius Ruth Attending Unavailable Allergies Allergy Classification Reported Allergen(s) Allergy Type Date of Onset Reaction(s) Facility (20 sources) Ibuprofen Drug Allergy [facility] [employer] [facility] [employer] [place] Other (20 sources) olodaterol / tiotropium Drug Allergy shortness of breath [facility] [employer] [facility] [place] Other (20 sources) CT Scan dye Propensity to adverse reactions [facility] [employer] Other (6 sources) Ibuprofen Drug Allergy 08-19-18 80 [facility] Repository (2 sources) Iodine (And Iodine Containting Drugs) Drug allergy (disorder) 09-07-19 16 [facility] Repository (1 source) NSAIDs Drug allergy (disorder) [facility] Repository (20 sources) fentaNYL Drug Allergy 12-05-19 24 Unknown, [facility] (4 sources) Ibuprofen Drug Allergy 01-15-20 15 [facility] (20 sources) Ofloxacin Drug Allergy 12-05-19 24 Unknown, [facility] (3 sources) zafirlukast Drug Allergy 01-15-20 15 Unknown [employer] [facility] [employer] [place] Other (20 sources) Zafirlukast *ANTIASTHMATIC AND BRONCHODILATOR AGEN Propensity to adverse reactions Unknown [employer] Other (20 sources) Ibuprofen & Diet Manage Prod *ANALGESICS - ANTI-IN Propensity to adverse reactions Unknown [employer] Other (3 sources) Allergies Reconciled Propensity to adverse reactions Unknown [employer] Other (20 sources) Iodinated contrast media (substance) Drug allergy 06-03-20 19 Rash [employer] Other (3 sources) patient allergy list reviewed by nurse or physicia Propensity to adverse reactions 10-05-19 16 Comment:Done [employer] Other (4 sources) olodaterol Drug Allergy 12-05-19 24 shortness of breath [facility] (4 sources) tiotropium Drug Allergy 12-05-19 24 shortness of breath [facility] (4 sources) Iodinated Contrast Media Allergy to substance 12-05-[address] [facility] (4 sources) Ibuprofen & Diet Manage Prod * Allergy to substance 12-04-[address] [facility] (4 sources) Zafirlukast *ANTIASTHMATIC AND Allergy to substance 12-04-[address] [facility] Medications Current Medications Medication Drug Class(es) [...] as needed Orally every 6 hrs Active [id number] 200 actuat albuterol 0.09 mg/actuat metered dose [...] Start: 11-23-2022 take 2 tablets by mo [facility] every twenty-four hours predniSONE [...] days May, Active Start: 2023 HYDROcodone-ac etaminophen (Winter) 10-325 MG tablet Start: 2023 take 1 [...] 30 mg oral tablet (5 sources) Uncompetitive R-tdrkxd-C-aspartate Receptor Antagonist, Sigma-1 Agonist Start: 05-26-2021 take 1 tablet by mouth every eight hours [place] DMT 30-30 MG 1 tablet Orally every [...] 8:39am Start: 02-20-2023 take 1 capsule by [facility] every twenty-four hours Cymbalta 60 MG [...] 10-05-2015 Episodic Other aftercare (1 source) 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 05-14-2024 [facility] Telephone ([id number]) ERIC CRAIG ([id number]) 1960 M Date Time Provider Department 05/14/24 AMEYA MERAZ [id number] During your visit today, we recorded the following information about you: Conrad Keily 05/14/2024 1:11 PM Signed Referral was sent from [facility] for new consult with Dr Meraz Please see below and advise Kayla Morley 05/15/2024 11:54 AM Addendum Consult from Dr. Hannah Magallanes (Internal Medicine) [facility] Referral received from PCP for esophageal abnormality -c/o dysphagia stating food/liquids gets stuck 04/07/2024 ENT consult Assessment/Plan: Esophageal dysphagia Pt's sx are very concerning for an obstructing adenocarcinoma of the esophagus, in addition to apparent metastatic colon CA. I will check an esophagram and recommend an expedited referral to GI or general surgery. Call to patient to procure further information for surgical consult. Upon speaking with patient, he has not had any imaging or endoscopy for workup. 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 Explained to patient that further workup for diagnosis is needed by endoscopy and colonoscopy followed by imaging to determine what surgical consult he may need. This office notified Dr. Magallanes's office (spoke to Es) to facilitate EGD/colonoscopy locally. 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] Problem List As Of Date: 05/14/2024 (None) Encounter Status:Closed by KAYLA MORLEY on 05/21/24 Normal [facility] Basophils Auto (Bld) [#/Vol] on 02-27-2024 Basophils (Bld) [#/Vol] 0.1 10 3/uL 0.0-0.1 [facility] Basophils/100 WBC Auto (Bld) on 02-27-2024 Basophils/100 WBC (Bld) 0.5 % 0.2-2.0 [facility] Eosinophils/100 WBC Auto (Bl d)on 02-27-2024 Eosinophils/100 WBC (Bld) 2.5 % 0.9-7.0 [facility] Erythrocyte distribution wid th Auto (RBC) [Ratio]on 02-27-2024 Erythrocyte distribution width (RBC) [Ratio] 13.5 % 11.0-15.0 [facility] Estimated glomerular filtrat ion rate (GFR) non- Americanon 02-27-2024 GFR/1.73 sq M.predicted among non-blacks MDRD (S/P/Bld) [Vol rate/Area] mL/min/{1.73_m2} >=60 [facility] Hematocrit Auto (Bld) [Volum e fraction]on 02-27-2024 Hematocrit (Bld) [Volume fraction] 47.1 % 42.0-54.0 [facility] Hemoglobin [Mass/volume] in Bloodon 02-27-2024 Hemoglobin (Bld) [Mass/Vol] 15.5 g/dL 14.0-18.0 [facility] Laboratory - Chemistry and C hemistry - challengeon 02-27-2024 Calcium [Mass/Vol] 8.9 mg/dL 8.5-10.1 [facility] Chloride [Moles/Vol] 98 mmol/L 98-107 [facility] CO2 [Moles/Vol] 28.1 mmol/L 21.0-32.0 [facility] Creatinine [Mass/Vol] 0.86 mg/dL 0.70-1.30 [facility] GFR/1.73 sq M.predicted MDRD (S/P/Bld) [Vol rate/Area] mL/min/{1.73_m2} >=60 [facility] Glucose [Mass/Vol] 237 mg/dL High 74-106 [facility] Lactate [Moles/Vol] 1.3 mmol/L 0.4-2.0 [facility] Potassium [Moles/Vol] 4.4 mmol/L 3.5-5.1 [facility] Sodium [Moles/Vol] 130 mmol/L Low 136-145 [facility] Urea nitrogen [Mass/Vol] 21.0 mg/dL High 7.0-18.0 [facility] Urea nitrogen/Creatinine [Mass ratio] 24.4 mg/mg [facility] Laboratory - Hematology and Cell countson 02-27-2024 Immature granulocytes/100 WBC (Bld) 0.3 % 0.0-0.5 [facility] Leukocytes [#/volume] correc jean claude for nucleated erythrocytes in Blood by Automated counon 02-27-2024 WBC corrected for nucl RBC Auto (Bld) [#/Vol] 9.3 10 3/uL 4.0-11.0 [facility] Lymphocytes Auto (Bld) [#/Vo l]on 02-27-2024 Lymphocytes (Bld) [#/Vol] 2.4 10 3/uL 1.2-3.8 [facility] Lymphocytes/100 WBC Auto (Bl d)on 02-27-2024 Lymphocytes/100 WBC (Bld) 25.5 % 20.5-60.0 [facility] MCH Auto (RBC) [Entitic mass ]on 02-27-2024 MCH (RBC) [Entitic mass] 29.1 pg 25.9-34.0 [facility] MCHC Auto (RBC) [Mass/Vol]on 02-27-2024 MCHC (RBC) [Mass/Vol] 32.9 g/dL 29.9-35.2 [facility] MCV Auto (RBC) [Entitic vol] on 02-27-2024 MCV (RBC) [Entitic vol] 88.5 fL 80.0-94.0 [facility] Monocytes Auto (Bld) [#/Vol] on 02-27-2024 Monocytes (Bld) [#/Vol] 1.1 10 3/uL High 0.3-0.8 [facility] Monocytes/100 WBC Auto (Bld) on 02-27-2024 Monocytes/100 WBC (Bld) 12.0 % 1.7-12.0 [facility] Neutrophils Auto (Bld) [#/Vo l]on 02-27-2024 Neutrophils (Bld) [#/Vol] 5.5 10 3/uL 1.4-6.5 [facility] Neutrophils/100 WBC Auto (Bl d)on 02-27-2024 Neutrophils/100 WBC (Bld) 59.2 % 43.0-75.0 [facility] No Panel Informationon 02-26 Eosinophils # (Auto) 0.2 10 3/uL 0.0-0.7 [facility] Immature Granulocyte # (Auto) 0.03 10 3/uL 0.00-0.03 [facility] Platelet mean volume Auto (B ld) [Entitic vol]on 02-27-2024 Platelet mean volume (Bld) [Entitic vol] 8.8 fL Low 9.5-13.5 [facility] Platelets Auto (Bld) [#/Vol] on 02-27-2024 Platelets (Bld) [#/Vol] 288 10 3/uL 150-450 [facility] RBC Auto (Bld) [#/Vol]on RBC (Bld) [#/Vol] 5.32 10 6/uL 4.70-6.10 [facility] Serum or plasma anion gap de terminationon 02-27-2024 Anion gap [Moles/Vol] 8.3 mmol/L [facility] Basophils Auto (Bld) [#/Vol] on 12-05-2023 Basophils (Bld) [#/Vol] 0.1 10 3/uL 0.0-0.1 [facility] Basophils/100 WBC Auto (Bld) on 12-05-2023 Basophils/100 WBC (Bld) 0.9 % 0.2-2.0 [facility] Eosinophils/100 WBC Auto (Bl d)on 12-05-2023 Eosinophils/100 WBC (Bld) 2.7 % 0.9-7.0 [facility] Erythrocyte distribution wid th Auto (RBC) [Ratio]on 12-05-2023 Erythrocyte distribution width (RBC) [Ratio] 13.1 % 11.0-15.0 [facility] Estimated glomerular filtrat ion rate (GFR) non- Americanon 12-05-2023 GFR/1.73 sq M.predicted among non-blacks MDRD (S/P/Bld) [Vol rate/Area] mL/min/{1.73_m2} >=60 [facility] Glucose mean value [Mass/vol ume] in Blood Estimated from glycated hemoglobinon 12-05-2023 Average glucose Estimated from glycated hemoglobin (Bld) [Mass/Vol] 171 mg/dL [facility] Hematocrit Auto (Bld) [Volum e fraction]on 12-05-2023 Hematocrit (Bld) [Volume fraction] 48.9 % 42.0-54.0 [facility] Hemoglobin [Mass/volume] in Bloodon 12-05-2023 Hemoglobin (Bld) [Mass/Vol] 16.0 g/dL 14.0-18.0 [facility] Laboratory - Chemistry and C hemistry - challengeon 12-05-2023 Calcium [Mass/Vol] 9.7 mg/dL 8.5-10.1 [facility] Chloride [Moles/Vol] 102 mmol/L 98-107 [facility] CO2 [Moles/Vol] 27.6 mmol/L 21.0-32.0 [facility] Creatinine [Mass/Vol] 1.01 mg/dL 0.70-1.30 [facility] GFR/1.73 sq M.predicted MDRD (S/P/Bld) [Vol rate/Area] mL/min/{1.73_m2} >=60 [facility] Glucose [Mass/Vol] 156 mg/dL High 74-106 [facility] Potassium [Moles/Vol] 4.4 mmol/L 3.5-5.1 [facility] Sodium [Moles/Vol] 139 mmol/L 136-145 [facility] Urea nitrogen [Mass/Vol] 13.0 mg/dL 7.0-18.0 [facility] Urea nitrogen/Creatinine [Mass ratio] 12.9 mg/mg [facility] Laboratory - Hematology and Cell countson 12-05-2023 ESR (Bld) [Velocity] 17 mm/h <=20 [facility] HbA1c (Bld) [Mass fraction] 7.6 % High 4.5-6.2 [facility] Comment on above: ADA RECOMMENDED LIMI T 4.0 - 6.0ADA THERAPEUTIC TARGET < 7.0ACTION SUGGESTED> 7.0 Immature granulocytes/100 WBC (Bld) 0.4 % 0.0-0.5 [facility] Leukocytes [#/volume] correc jean claude for nucleated erythrocytes in Blood by Automated counon 12-05-2023 WBC corrected for nucl RBC Auto (Bld) [#/Vol] 7.7 10 3/uL 4.0-11.0 [facility] Lymphocytes Auto (Bld) [#/Vo l]on 12-05-2023 Lymphocytes (Bld) [#/Vol] 2.4 10 3/uL 1.2-3.8 [facility] Lymphocytes/100 WBC Auto (Bl d)on 12-05-2023 Lymphocytes/100 WBC (Bld) 31.2 % 20.5-60.0 [facility] MCH Auto (RBC) [Entitic mass ]on 12-05-2023 MCH (RBC) [Entitic mass] 28.5 pg 25.9-34.0 [facility] MCHC Auto (RBC) [Mass/Vol]on 12-05-2023 MCHC (RBC) [Mass/Vol] 32.7 g/dL 29.9-35.2 [facility] MCV Auto (RBC) [Entitic vol] on 12-05-2023 MCV (RBC) [Entitic vol] 87.0 fL 80.0-94.0 [facility] Monocytes Auto (Bld) [#/Vol] on 12-05-2023 Monocytes (Bld) [#/Vol] 0.7 10 3/uL 0.3-0.8 [facility] Monocytes/100 WBC Auto (Bld) on 12-05-2023 Monocytes/100 WBC (Bld) 9.5 % 1.7-12.0 [facility] Neutrophils Auto (Bld) [#/Vo l]on 12-05-2023 Neutrophils (Bld) [#/Vol] 4.2 10 3/uL 1.4-6.5 [facility] Neutrophils/100 WBC Auto (Bl d)on 12-05-2023 Neutrophils/100 WBC (Bld) 55.3 % 43.0-75.0 [facility] No Panel Informationon 12-04 Eosinophils # (Auto) 0.2 10 3/uL 0.0-0.7 [facility] Immature Granulocyte # (Auto) 0.03 10 3/uL 0.00-0.03 [facility] Platelet mean volume Auto (B ld) [Entitic vol]on 12-05-2023 Platelet mean volume (Bld) [Entitic vol] 8.6 fL Low 9.5-13.5 [facility] Platelets Auto (Bld) [#/Vol] on 12-05-2023 Platelets (Bld) [#/Vol] 330 10 3/uL 150-450 [facility] RBC Auto (Bld) [#/Vol]on RBC (Bld) [#/Vol] 5.62 10 6/uL 4.70-6.10 [facility] Serum or plasma anion gap de terminationon 12-05-2023 Anion gap [Moles/Vol] 13.8 mmol/L [facility] Magnesiumon 07-02-2023 Magnesium [Mass/Vol] 2.5075520 mg/dL Normal 1.8-2.4 mg/dL [employer] Other Magnesium see note [employer] Other MRI Shoulder w/o Contrast [facility] 05-31-2023 MRI Shoulder w/o Contrast Right Exam Date/Time: 05/30/2023 14:25 EDT Reason for Exam: [id number] Report IMPRESSION: Full-thickness rotator cuff tearing involving [...] STELLA Technical Comments None Normal [facility] Consent for Treatmenton 05-19 Consent for Treatment [id number] .00TIFF Normal [facility] RAD - MRI Screening Formon 1 RAD - MRI Screening Form [id number]. 00TIFF Normal [facility] Physician Orderon 05-09-2023 Physician Order [id number]# 1.00CD:127 Normal [facility] XR CHEST 2 Von 11-24-2022 XR [...] by: RUBI TAVERAS Date: 2022-11-24 17:[address] [facility] [address] LUNG CANCER SCREENINGon 1 09-20-2021 [...] YEISON NAVAS Date: 2022-07-20 07:18 Normal [facility] CBC AUTO DIFFon 06-07-2022 BASO # 0.1 103/ul Normal 0.0-0.1 [facility] Comment on above: Performed By: #### C BC #### [facility] [address] [place] [address] Dr. Eran Chacon Basophils/100 WBC (Bld) 0.6 % Normal 0.2-2.0 [facility] Comment on above: Performed By: #### C BC #### [facility] [address] [place] [address] Dr. Eran Chacon EO # 0.3 103/ul Normal 0.0-0.7 [facility] Comment on above: Performed By: #### C BC #### [facility] [address] [place] [address] Dr. Eran Chacon Eosinophils/100 WBC (Bld) 3.3 % Normal 0.9-7.0 [facility] Comment on above: Performed By: #### C BC #### [facility] [address] [place] [address] Dr. Eran Chacon Erythrocyte distribution width (RBC) [Ratio] 12.9 % Normal 11.0-15.0 [facility] Comment on above: Performed By: #### C BC #### [facility] [address] [place] [address] Dr. Eran Chacon Hematocrit (Bld) [Volume fraction] 47.7 % Normal 42.0-54.0 [facility] Comment on above: Performed By: #### C BC #### [facility] [address] [place] [address] Dr. Eran Chacon Hemoglobin (Bld) [Mass/Vol] 15.9 g/dL Normal 14.0-18.0 [facility] Comment on above: Performed By: #### C BC #### [facility] [address] [place] [address] Dr. Eran Chacon IG # 0.02 10e3/ul Normal 0.00-0.03 [facility] Comment on above: Performed By: #### C BC #### [facility] [address] [place] [address] Dr. Eran Chacon IG % 0.2 % Normal 0.0-0.5 [facility] Comment on above: Performed By: #### C BC #### [facility] [address] [place] [address] Dr. Eran Chacon LYMPH # 3.4 103/ul Normal 1.2-3.8 [facility] Comment on above: Performed By: #### C BC #### [facility] [address] [place] [address] Dr. Eran Chacon Lymphocytes/100 WBC (Bld) 34.5 % Normal 20.5-60.0 [facility] Comment on above: Performed By: #### C BC #### [facility] [address] [place] [address] Dr. Eran Chacon MANUAL DIFF REQ NO Normal [facility] Comment on above: Performed By: #### C BC #### [facility] [address] [place] [address] Dr. Eran Chacon MCH (RBC) [Entitic mass] 29.6 pg Normal 25.9-34.0 [facility] Comment on above: Performed By: #### C BC #### [facility] [address] [place] [address] Dr. Eran Chacon MCHC (RBC) [Mass/Vol] 33.3 g/dL Normal 29.9-35.2 [facility] Comment on above: Performed By: #### C BC #### [facility] [address] [place] [address] Dr. Eran Chacon MCV (RBC) [Entitic vol] 88.8 fL Normal 80.0-94.0 [facility] Comment on above: Performed By: #### C BC #### [facility] [address] [place] [address] Dr. Eran Chacon MONO # 0.9 103/ul Critically high 0.3-0.8 [facility] Comment on above: Performed By: #### C BC #### [facility] [address] [place] [address] Dr. Eran Chacon Monocytes/100 WBC (Bld) 9.3 % Normal 1.7-12.0 [facility] Comment on above: Performed By: #### C BC #### [facility] [address] [place] [address] Dr. Eran Chacon NEUT # 5.2 103/ul Normal 1.4-6.5 [facility] Comment on above: Performed By: #### C BC #### [facility] [address] [place] [address] Dr. Eran Chacon Neutrophils/100 WBC (Bld) 52.1 % Normal 43.0-75.0 [facility] Comment on above: Performed By: #### C BC #### [facility] [address] [place] [address] Dr. Eran Chacon Platelet mean volume (Bld) [Entitic vol] 8.8 fL Critically low 9.5-13.5 [facility] Comment on above: Performed By: #### C BC #### [facility] [address] [place] [address] Dr. Eran Chacon PLT 287 103/ul Normal 150-450 [facility] Comment on above: Performed By: #### C BC #### [facility] [address] [place] [address] Dr. Eran Chacon RBC 5.37 106/ul Normal 4.70-6.10 [facility] Comment on above: Performed By: #### C BC #### [facility] [address] [place] [address] Dr. Eran Chacon WBC 9.9 103/ul Normal 4.0-11.0 [facility] Comment on above: Performed By: #### C BC #### [facility] [address] [place] [address] Dr. Eran Chacon ER URINE PROFILEon 2 Bilirubin Ql (U) Negative Normal NEGATIVE [facility] Comment on above: Performed By: #### Med SHER UMICRO #### [facility] [address] [place] [address] Dr. Eran Chacon Clarity (U) CLEAR Normal CLEAR [facility] Comment on above: Performed By: #### Med SHER UMICRO #### [facility] [address] [place] [address] Dr. Eran Chacon Color (U) YELLOW Normal YELLOW [facility] Comment on above: Performed By: #### Med SHER UMICRO #### [facility] [address] [place] [address] Dr. Eran Chacon ERUAHChong A micrscopic examination will be performed if indicated. Normal [facility] Comment on above: Performed By: #### Med SHER UMICRO #### [facility] [address] [place] [address] Dr. Eran Chacon Glucose Ql (U) 500 mg/dl Abnormal NEGATIVE [facility] Comment on above: Performed By: #### Med SHER UMICRO #### [facility] [address] [place] [address] Dr. Eran Chacon Hemoglobin Ql (U) TRACE-INTACT Abnormal NEGATIVE [facility] Comment on above: Performed By: #### Med SHER UMICRO #### [facility] [address] [place] [address] Dr. Eran Chacon Ketones Ql (U) Negative Normal NEGATIVE [facility] Comment on above: Performed By: #### Med SHER UMICRO #### [facility] [address] [place] [address] Dr. Eran Chacon LEUKOCYTES Negative Normal NEGATIVE [facility] Comment on above: Performed By: #### HANNA BATES #### [facility] [address] [place] [address] Dr. Eran Chacon Nitrite Ql (U) Negative Normal NEGATIVE [facility] Comment on above: Performed By: #### HANNA BATES #### [facility] [address] [place] [address] Dr. Eran Chacon pH (U) 6.0 [pH] Normal 5-9 [facility] Comment on above: Performed By: #### HANNA BATES #### [facility] [address] [place] [address] Dr. Eran Chacon SPEC GRAVITY 1.025 Normal 1.005-<=1.025 [facility] Comment on above: Performed By: #### HANNA BATES #### [facility] [address] [place] [address] Dr. Eran Chacon UA PROTEIN Negative Normal NEGATIVE/ TRACE [facility] Comment on above: Performed By: #### HANNA BATES #### [facility] [address] [place] [address] Dr. Eran Chacon UR MICRO IND INDICATED Normal [facility] Comment on above: Performed By: #### HANNA BATES #### [facility] [address] [place] [address] Dr. Eran Chacon Urobilinogen Qn (U) 0.2 {Aureliano'U}/dL Normal 0.2 - 1. 0 [facility] Comment on above: Performed By: #### HANNA BATES #### [facility] [address] [place] [address] Dr. Eran Chacon PROF 14(COMP METB)on 022 Albumin [Mass/Vol] 4.0 g/dL Normal 3.4-5.0 [facility] Comment on above: Performed By: #### C MP #### [facility] [address] [place] [address] Dr. Eran Chacon Albumin/Globulin [Mass ratio] 1.2 {ratio} Normal [facility] Comment on above: Performed By: #### C MP #### [facility] [address] [place] [address] Dr. Eran Chacon ALP [Catalytic activity/Vol] 104 U/L Normal 46-116 [facility] Comment on above: Performed By: #### C MP #### [facility] [address] [place] [address] Dr. Eran Chacon ALT [Catalytic activity/Vol] 28 U/L Normal 16-63 [facility] Comment on above: Performed By: #### C MP #### [facility] [address] [place] [address] Dr. Eran Chacon Anion gap [Moles/Vol] 7.2 mmol/L Normal [facility] Comment on above: Performed By: #### C MP #### [facility] [address] [place] [address] Dr. Eran Chacon AST [Catalytic activity/Vol] 14 U/L Critically low 15-37 [facility] Comment on above: Performed By: #### C MP #### [facility] [address] [place] [address] Dr. Eran Chacon Bilirubin [Mass/Vol] 0.4 mg/dL Normal 0.2-1.0 [facility] Comment on above: Performed By: #### C MP #### [facility] [address] [place] [address] Dr. Eran Chacon Calcium [Mass/Vol] 9.0 mg/dL Normal 8.5-10.1 [facility] Comment on above: Performed By: #### C MP #### [facility] [address] [place] [address] Dr. Eran Chacon Chloride [Moles/Vol] 103 mmol/L Normal 98-107 [facility] Comment on above: Performed By: #### C MP #### [facility] [address] [place] [address] Dr. Eran Chacon CO2 [Moles/Vol] 30.0 mmol/L Normal 21.0-32.0 [facility] Comment on above: Performed By: #### C MP #### [facility] [address] [place] [address] Dr. Eran Chacon Creatinine [Mass/Vol] 0.85 mg/dL Normal 0.70-1.30 [facility] Comment on above: Performed By: #### C MP #### [facility] [address] [address] [address] Eran Chacon EGFR-AF SINGAPOREAN >60 Normal >=60 [facility] Comment on above: Performed By: #### C MP #### [facility] [address] [place] [address] Dr. Eran Chacon EGFR-NON AF SINGAPOREAN >60 Normal >=60 [facility] Comment on above: Performed By: #### C MP #### [facility] [address] [place] [address] Dr. Eran Chacon Globulin (S) [Mass/Vol] 3.3 g/dL Normal [facility] Comment on above: Performed By: #### C MP #### [facility] [address] [place] [address] Dr. Eran Chacon Glucose [Mass/Vol] 165 mg/dL Critically high 74-106 [facility] Comment on above: Performed By: #### C MP #### [facility] [address] [place] [address] Dr. Eran Chacon Potassium [Moles/Vol] 4.2 mmol/L Normal 3.5-5.1 [facility] Comment on above: Performed By: #### C MP #### [facility] [address] [place] [address] Dr. Eran Chacon Protein [Mass/Vol] 7.3 g/dL Normal 6.4-8.2 [facility] Comment on above: Performed By: #### C MP #### [facility] [address] [place] [address] Dr. Eran Chacon Sodium [Moles/Vol] 136 mmol/L Normal 136-145 [facility] Comment on above: Performed By: #### C MP #### [facility] [address] [place] [address] Dr. Eran Chacon Urea nitrogen [Mass/Vol] 10.0 mg/dL Normal 7.0-18.0 [facility] Comment on above: Performed By: #### C MP #### [facility] [address] [place] [address] Dr. Eran Chacon Urea nitrogen/Creatinine [Mass ratio] 11.8 mg/mg Normal [facility] Comment on above: Performed By: #### C MP #### [facility] [address] [place] [address] Dr. Eran Chacon URINE MICROSCOPIC ONLYon BACTERIA NONE SEEN Normal NONE SEEN [facility] Comment on above: Performed By: #### Med SHER, UMICRO #### [facility] [address] [place] [address] Dr. Eran Chacon Bacteria identified Cx Nom (U) NOT INDICATED Normal [facility] Comment on above: Performed By: #### Med SHER, UMICRO #### [facility] [address] [place] [address] Dr. Eran Chacon CAST NONE SEEN Normal NONE SEEN [facility] Comment on above: Performed By: #### E NIKKY, UMICRO #### [facility] [address] [place] [address] Dr. Eran Chacon Crystals LM Nom (Urine sed) NONE SEEN Normal NONE SEEN [facility] Comment on above: Performed By: #### Med RUR, UMICRO #### [facility] [address] [place] [address] Dr. Eran Chacon Epithelial cells LM Ql (Urine sed) RARE Normal NONE SEEN /RARE [facility] Comment on above: Performed By: #### Med SHER, UMICRO #### [facility] [address] [place] [address] Dr. Eran Chacon MUCOUS NONE SEEN Normal NONE SEEN [facility] Comment on above: Performed By: #### Med SHER UMICRO #### [facility] [address] [place] [address] Dr. Eran Chacon RBC 0-2 Normal 0-2 [facility] Comment on above: Performed By: #### E HANNA SHER #### [facility] [address] [address] [address] Eran Chacon WBC 2-5 Abnormal NONE SEEN [facility] Comment on above: Performed By: #### HANNA BATES #### [facility] [address] [address] [address] Eran Chacon MRI SHOULDER LT WO [...] by: YEISON NAVAS Date: 2022-02-02 17:09 Normal [facility] XR shoulder LT min 2V*on XR shoulder LT min 2V* [facility] [place] [address] [place] [id number] XRay Report Signed Patient: Eric Craig MR#: [id number] : 1960 Acct:[id number] Age/Sex: 61 / M ADM Date: 01/25/22 [place] [facility] [place]: Type[place] [facility] Attending Dr: Kesha Trujillo MD Ordering Provider: [...] Otilia Nunez M.D.01/25/2022 11:41 AM Dictation Location: [place] [address] Transcribed By: NATALIE 01/25/22 1141 Dictated By: Otilia Nunez MD 01/25/22 1139 Signed By: 01/25/22 1141 Normal [facility] Vital Signs Date Time Vital Sign Value Performing Clinician Facility 03-18-2024 08:46-0400 Body height 175.[address] [facility] 03-18-2024 08:46-0400 Body mass index (BMI) [Ratio] 34.4 kg/m2 [facility] 03-18-2024 08:46-0400 Body weight 105.[address] [facility] 03-18-2024 08:46-0400 Diastolic blood pressure 80 mm[Hg] [facility] 03-18-2024 08:46-0400 Heart rate 72 /min [facility] 03-18-2024 08:46-0400 Systolic blood pressure 130 mm[Hg] [facility] 03-03-2024 11:54-0400 Body height 175.[address] [facility] 03-03-2024 11:54-0400 Body mass index (BMI) [Ratio] 34.7 kg/m2 [facility] 03-03-2024 11:54-0400 Body weight 106.[address] [facility] 03-03-2024 11:54-0400 Diastolic blood pressure 81 mm[Hg] [facility] 03-03-2024 11:54-0400 Heart rate 69 /min [facility] 03-03-2024 11:54-0400 Systolic blood pressure 129 mm[Hg] [facility] 12-17-2023 08:54-0400 Body height 175.[address] [facility] 12-17-2023 08:54-0400 Body mass index (BMI) [Ratio] 35.2 kg/m2 [facility] 12-17-2023 08:54-0400 Body weight 108.[address] [facility] 12-17-2023 08:54-0400 Diastolic blood pressure 76 mm[Hg] [facility] 12-17-2023 08:54-0400 Heart rate 76 /min [facility] 12-17-2023 08:54-0400 Systolic blood pressure 154 mm[Hg] [facility] 12-05-2023 08:52-0400 Body height 175.[address] [facility] 12-05-2023 08:52-0400 Body mass index (BMI) [Ratio] 35 kg/m2 [facility] 12-05-2023 08:52-0400 Body weight 107.[address] [facility] 12-05-2023 08:52-0400 Diastolic blood pressure 78 mm[Hg] [facility] 12-05-2023 08:52-0400 Heart rate 69 /min [facility] 12-05-2023 08:52-0400 Systolic blood pressure 147 mm[Hg] [facility] 09-13-2023 13:30-0500 Body height 175.26 cm Hannah Magallanes Other [facility] 09-13-2023 13:30-0500 Body mass index (BMI) [Ratio] 33.22 kg/m2 Hannah Magallanes Other [facility] [employer] [facility] [place] Other 09-13-2023 13:30-0500 Body temperature 98.4 [degF] Hannah Magallanes Other [facility] [employer] [facility] [place] Other 09-13-2023 13:30-0500 Body weight 102.06 kg Hannah Magallanes Other [facility] [employer] [facility] [place] Other 09-13-2023 13:30-0500 Body weight 102.[address] [facility] 09-13-2023 13:30-0500 Diastolic blood pressure 80 mm[Hg] Hannah Magallanes Other [facility] 09-13-2023 13:30-0500 SaO2% (BldA) [Mass fraction] 93 % Hannah Magallanes Other [facility] [employer] [facility] [place] Other 09-13-2023 13:30-0500 Systolic blood pressure 118 mm[Hg] Hannah Magallanes Other [facility] 08-13-2023 10:30-0500 Body height 175.26 cm Hannah Magallanes Other [employer] [facility] [employer] [place] Other 08-13-2023 10:30-0500 Body mass index (BMI) [Ratio] 33.9 kg/m2 Hannah Magallanes Other [employer] Other 08-13-2023 10:30-0500 Body weight 104.15 kg Hannah Magallanes Other [employer] Other 08-13-2023 10:30-0500 Diastolic blood pressure 78 mm[Hg] Hannah Magallanes Other [employer] Other 08-13-2023 10:30-0500 Systolic blood pressure 124 mm[Hg] Hannah Magallanes Other [employer] Other 06-25-2023 08:45-0500 Body height 175.26 cm Hannah Magallanes Other [employer] Other 06-25-2023 08:45-0500 Body mass index (BMI) [Ratio] 33.37 kg/m2 Hannah Magallanes Other [employer] Other 06-25-2023 08:45-0500 Body temperature 96.5 [degF] Hannah Magallanes Other [facility] Other 06-25-2023 08:45-0500 Body weight 102.51 kg Hannah Magallanes Other [facility] Other 06-25-2023 08:45-0500 Diastolic blood pressure 85 mm[Hg] Hannah Magallanes Other [facility] Other 06-25-2023 08:45-0500 Systolic blood pressure 149 mm[Hg] Hannah Magallanes Other [employer] Other 05-28-2023 10:45-0400 Body height 175.26 cm Hannah Magallanes Other [facility] Other 05-28-2023 10:45-0400 Body mass index (BMI) [Ratio] 33.52 kg/m2 Hannah Magallanes Other [employer] Other 05-28-2023 10:45-0400 Body weight 102.97 kg Hannah Magallanes Other [facility] Other 05-28-2023 10:45-0400 Diastolic blood pressure 82 mm[Hg] Hannah Magallanes Other [employer] Other 05-28-2023 10:45-0400 Systolic blood pressure 147 mm[Hg] Hannah Magallanes Other [employer] Other 2023 08:45-0400 Body height 175.26 cm Hannah Magallanes Other [employer] Other 2023 08:45-0400 Body mass index (BMI) [Ratio] 33.52 kg/m2 Hannah Magallanes Other [facility] Other 2023 08:45-0400 Body weight 102.97 kg Hannah Magallanes Other [employer] Other 2023 08:45-0400 Diastolic blood pressure 85 mm[Hg] Hannah Magallanes Other [employer] Other 2023 08:45-0400 Systolic blood pressure 156 mm[Hg] Hannah Magallanes Other [employer] Other 04-30-2023 09:45-0400 Body height 175.26 cm Hannah Magallanes Other [employer] Other 04-30-2023 09:45-0400 Body mass index (BMI) [Ratio] 34.32 kg/m2 Hannah Magallanes Other [employer] Other 04-30-2023 09:45-0400 Body temperature 96.2 [degF] Hannah Magallanes Other [facility] Other 04-30-2023 09:45-0400 Body weight 105.42 kg Hannah Magallanes Other [employer] Other 04-30-2023 09:45-0400 Diastolic blood pressure 78 mm[Hg] Hannah Magallanes Other [facility] Other 04-30-2023 09:45-0400 Respiratory rate 16 /min Hannah Magallanes Other [employer] Other 04-30-2023 09:45-0400 Systolic blood pressure 146 mm[Hg] Hannah Magallanes Other [facility] Other 02-20-2023 09:15-0400 Body height 175.26 cm Hannah Magallanes Other [facility] Other 02-20-2023 09:15-0400 Body mass index (BMI) [Ratio] 33.46 kg/m2 Hannah Magallanes Other [facility] Other 02-20-2023 09:15-0400 Body weight 102.79 kg Hannah Magallanes Other [employer] Other 02-20-2023 09:15-0400 Diastolic blood pressure 77 mm[Hg] Hannah Magallanes Other [facility] Other 02-20-2023 09:15-0400 Systolic blood pressure 131 mm[Hg] Hannah Magallanes Other [facility] Other 01-17-2023 08:45-0400 Body height 175.26 cm Hannah Magallanes Other [facility] Other 01-17-2023 08:45-0400 Body mass index (BMI) [Ratio] 33.37 kg/m2 Hannah Magallanes Other [facility] Other 01-17-2023 08:45-0400 Body weight 102.51 kg Hannah Magallanes Other [facility] Other 01-17-2023 08:45-0400 Diastolic blood pressure 79 mm[Hg] Hannah Magallanes Other [facility] Other 01-17-2023 08:45-0400 Systolic blood pressure 128 mm[Hg] Hannah Magallanes Other [facility] Other 11-23-2022 09:30-0400 Body height 175.26 cm Hannah Magallanes Other [facility] Other 11-23-2022 09:30-0400 Body mass index (BMI) [Ratio] 33.96 kg/m2 Hannah Magallanes Other [employer] Other 11-23-2022 09:30-0400 Body weight 104.33 kg Hannah Magallanes Other [facility] Other 11-23-2022 09:30-0400 Diastolic blood pressure 72 mm[Hg] Hannah Magallanes Other [facility] Other 11-23-2022 09:30-0400 Systolic blood pressure 122 mm[Hg] Hannah Magallanes Other [facility] Other 09-04-2022 11:30-0500 Body height 175.26 cm Hannah aMgallanes Other [facility] Other 09-04-2022 11:30-0500 Body mass index (BMI) [Ratio] 33.52 kg/m2 Hannah Magallanes Other [facility] Other 09-04-2022 11:30-0500 Body weight 102.97 kg Hannah Magallanes Other [facility] Other 09-04-2022 11:30-0500 Diastolic blood pressure 80 mm[Hg] Hannah Magallanes Other [facility] Other 09-04-2022 11:30-0500 SaO2% (BldA) [Mass fraction] 95 % Hannah Magallanes Other [facility] Other 09-04-2022 11:30-0500 Systolic blood pressure 122 mm[Hg] Hannah Magallanes Other [facility] Other 02-06-2022 12:45-0400 Body height 175.26 cm Kesha Olexa Other [facility] Other 02-06-2022 12:45-0400 Body mass index (BMI) [Ratio] 31.01 kg/m2 Kesha Olexa Other [facility] Other 02-06-2022 12:45-0400 Body weight 95.26 kg Kesha Olexa Other [facility] Other 05-26-2021 13:15-0400 Body height 175.26 cm Harriet Ginty Other [facility] Other 05-26-2021 13:15-0400 Body mass index (BMI) [Ratio] 31.01 kg/m2 Harriet Ginty Other [facility] Other 05-26-2021 13:15-0400 Body temperature 98.3 [degF] Harriet Ginty Other [facility] Other 05-26-2021 13:15-0400 Body weight 95.26 kg Hariret Mo Other [facility] Other 05-26-2021 13:15040 SaO2% (BldA) [Mass fraction] 96 % Harriet Chepe Other [facility] Other Encounters Encounter Date Encounter Type Care Provider Facility Start: 05-18-2024 End: 05-18-2024 ambulatory Zacarias Pike MD [facility]: [facility] Start: 04-07-2024 End: 04-07-2024 ambulatory MALATHI SANCHEZ Not Available Start: 04-06-2024 End: 04-06-2024 ambulatory Zacarias Pike MD [facility]: [facility] Start: 03-18-2024 End: 03-18-2024 ambulatory [facility] Work Phone: Start: 03-18-2024 End: 03-18-2024 Patient encounter procedure [facility] Physician [facility] Work Phone: Start: 03-16-2024 End: 03-16-2024 ambulatory Zacarias Pike MD [facility]: [facility] Start: 03-03-2024 End: 03-03-2024 ambulatory [facility] Work Phone: Start: 03-03-2024 End: 03-03-2024 Patient encounter procedure [facility] Physician [facility] Work Phone: Start: 02-27-2024 Non-patient / Non-visit [facility] Work Phone: Start: 02-24-2024 End: 02-24-2024 ambulatory Zacarias Pike MD [facility]: [facility] Start: 02-03-2024 End: 02-03-2024 ambulatory Zacarias Pike MD [facility]: [facility] Start: 01-20-2024 End: 01-20-2024 ambulatory Zacarias Pike MD [facility]: [facility] Start: 12-17-2023 End: 12-17-2023 ambulatory [facility] Work Phone: Start: 12-17-2023 End: 12-17-2023 Patient encounter procedure [facility] Physician [facility] Work Phone: Start: 12-05-2023 End: 12-05-2023 ambulatory [facility] Work Phone: Start: 12-05-2023 End: 12-05-2023 Patient encounter procedure [facility] Work Phone: Start: 10-23-2023 Non-patient / Non-visit [facility] Work Phone: Start: 10-08-2023 Non-patient / Non-visit [facility] Start: 10-07-2023 End: 10-07-2023 ambulatory BARBIE CHILDERSOS Not Available Start: 09-18-2023 End: 09-18-2023 ambulatory Hannah Magallanes Other [facility] Other Start: 09-18-2023 Telephone encounter aHnnah Magallanes [facility] Start: 09-13-2023 End: 09-13-2023 ambulatory Hannah Magallanes Other [facility] Other Start: 09-13-2023 Office outpatient vi sit 15 minutes Hannah Magallanes [facility] Start: 09-13-2023 End: 09-13-2023 Patient encounter procedure [facility] Start: 09-11-2023 Telephone encounter [place] coleman [...] 09-10-2023 End: 09-10-2023 ambulatory Hannah Magallanes Other [facility] Other Start: 09-10-2023 Telephone encounter Hannah Magallanes [facility] Start: 09-06-2023 End: 09-06-2023 ambulatory Hannah Magallanes Other [facility] Other Start: 09-06-2023 Telephone encounter Hannah Magallanes [facility] Start: 09-02-2023 End: 09-02-2023 ambulatory HI POCOS Not Available Start: 08-20-2023 End: 08-20-2023 ambulatory Hannah Magallanes Other [facility] Other Start: 08-20-2023 Telephone encounter Hannah Magallanes [facility] Start: 08-13-2023 End: 08-13-2023 ambulatory Hannah Magallanes Other [facility] Other Start: 08-13-2023 Office outpatient vi sit 25 minutes Hannah Magallanes [facility] Start: 08-13-2023 Telephone encounter Hannah Magallanes [facility] Start: 08-06-2023 End: 08-06-2023 ambulatory Hannah Magallanes Other [facility] Other Start: 08-06-2023 Telephone encounter Hannah Magallanes [facility] Start: 07-29-2023 End: 07-29-2023 ambulatory HI POCOS Not Available Start: 07-22-2023 End: 07-22-2023 ambulatory Hannah Magallanes Other [facility] Other Start: 07-22-2023 Telephone encounter Hannah Magallanes [facility] Start: 07-19-2023 End: 07-19-2023 ambulatory Hannah Magallanes Other [facility] Other Start: 07-19-2023 Telephone encounter Hannah Magallanes [facility] Start: 07-18-2023 End: 07-18-2023 ambulatory Hannah Magallanes Other [facility] Other Start: 07-18-2023 Telephone encounter Hannah Magallanes [facility] Start: 07-02-2023 End: 07-02-2023 ambulatory Hannah Sona Other [facility] Other Start: 07-02-2023 Office outpatient vi sit 15 minutes Hannah Magallanes [facility] Start: 07-02-2023 Telephone encounter Hannah Magallanes [facility] Start: 06-25-2023 End: 06-25-2023 ambulatory Hannah Magallanes Other [facility] Other Start: 06-25-2023 Office outpatient vi sit 15 minutes Hannah Magallanes [facility] Start: 06-21-2023 End: 06-21-2023 ambulatory Hannah Magallanes Other [facility] Other Start: 06-21-2023 Encounter by compute r link Hannah Sona [facility] Start: 06-20-2023 End: 06-20-2023 ambulatory Hannah Sona Other [facility] Other Start: 06-20-2023 Telephone encounter Hannah Magallanes [facility] Start: 06-17-2023 End: 06-17-2023 ambulatory Hannah Sona Other [facility] Other Start: 06-17-2023 Telephone encounter Hannah Magallanes [facility] Start: 06-10-2023 End: 06-10-2023 ambulatory Hannah Magallanes Other [facility] Other Start: 06-10-2023 Telephone encounter Hannah Magallanes [facility] Start: 06-03-2023 End: 06-03-2023 ambulatory Hannah Sona Other [facility] Other Start: 06-03-2023 Telephone encounter Hannah Magallanes [facility] Start: 05-30-2023 End: 05-31-2023 ambulatory Hi Pocos [facility] Start: 05-30-2023 End: 05-30-2023 Patient encounter procedure Hi Pocos [facility] Start: 05-28-2023 End: 05-28-2023 ambulatory Hannah Sona Other [facility] Other Start: 05-28-2023 Office outpatient vi sit 15 minutes Hannah Magallanes [facility] Start: 2023 End: 2023 ambulatory Hannah Magallanes Other [facility] Other Start: 2023 Office outpatient vi sit 15 minutes Hannah Magallanes [facility] Start: 05-16-2023 End: 05-16-2023 ambulatory Hannah Magallanes Other [facility] Other Start: 05-16-2023 Telephone encounter Hannah Magallanes [facility] Start: 04-30-2023 End: 04-30-2023 ambulatory Hannah Magallanes Other [facility] Other Start: 04-30-2023 Office outpatient vi sit 15 minutes Hannah Magallanes [facility] Start: 04-26-2023 End: 04-26-2023 ambulatory Hannahyeyo Magallanes Other [facility] Other Start: 04-26-2023 Telephone encounter Hannah Sona [facility] Start: 04-23-2023 End: 04-23-2023 ambulatory Hannah Sona Other [facility] Other Start: 04-23-2023 Telephone encounter Hannah Sona [facility] Start: 03-25-2023 End: 03-25-2023 ambulatory Hannah Sona Other [facility] Other Start: 03-25-2023 Telephone encounter Hannah Sona [facility] Start: 03-06-2023 End: 03-06-2023 ambulatory Hannah Magallanes Other [facility] Other Start: 03-06-2023 Telephone encounter Hannah Sona [facility] Start: 02-20-2023 End: 02-20-2023 ambulatory Hannah Sona Other [facility] Other Start: 02-20-2023 Office outpatient vi sit 25 minutes Hannah Magallanes [facility] Start: 02-05-2023 End: 02-05-2023 ambulatory Hannah Sona Other [facility] Other Start: 02-05-2023 Telephone encounter Hannah Sona [facility] Start: 01-21-2023 End: 01-21-2023 ambulatory Hannah Sona Other [facility] Other Start: 01-21-2023 Telephone encounter Hannah Magallanes [employer] Start: 01-17-2023 End: 01-17-2023 ambulatory Hannah Magallanes Other [facility] Other Start: 01-17-2023 Office outpatient vi sit 15 minutes Hannah Magallanes [facility] Start: 12-24-2022 End: 12-24-2022 ambulatory Hannah Magallanes Other [facility] Other Start: 12-24-2022 Telephone encounter Hannah Magallanes [facility] Start: 12-03-2022 End: 12-03-2022 ambulatory Hannah Magallanes Other [facility] Other Start: 12-03-2022 Telephone encounter Hannah Magallanes [facility] Start: 11-27-2022 End: 11-27-2022 ambulatory Hannah Magallanes Other [facility] Other Start: 11-27-2022 Telephone encounter Hannah Magallanes [facility] Start: 11-26-2022 End: 11-26-2022 ambulatory Hannah Magallanes Other [facility] Other Start: 11-26-2022 Telephone encounter Hannah Magallanes [facility] Start: 11-24-2022 End: 11-25-[address] HANNAH MAGALLANES Facility: Start: 11-23-2022 End: 11-23-2022 ambulatory Hannah Magallanes Other [facility] Other Start: 11-23-2022 Office outpatient vi sit 15 minutes Hannah Magallanes [facility] Start: 11-05-2022 End: 11-05-2022 ambulatory Hannah Magallanes Other [facility] Other Start: 11-05-2022 Telephone encounter Hannah Magallanes [facility] Start: 10-03-2022 End: 10-03-2022 ambulatory Hannah Magallanes Other [facility] Other Start: 10-03-2022 Telephone encounter Hannah Magallanes [facility] Start: 09-04-2022 End: 09-04-2022 ambulatory Hannah Magallanes Other [facility] Other Start: 09-04-2022 Office outpatient vi sit 25 minutes Hannah Magallanes [facility] Start: 07-26-[address] HANNAH MAGALLANES Facil ity:H1 Start: 07-19-2022 End: 07-20-[address] WILFREDO ENGLE Facility:H1 Start: 06-07-2022 End: 06-07-[address] HANNAH MAGALLANES Facility:H1 Start: 03-15-2022 ambulatory KESHA TRUJILLO Facility:H 1 Start: 02-06-2022 End: 02-06-2022 ambulatory Kesha Olexa Other [facility] Start: 02-06-2022 Office outpatient vi sit 25 minutes Kesha Olexa [facility] Start: 02-02-2022 End: 02-03-2022 ambulatory KESHA TRUJILLO Facility:H1 Start: 12-28-2021 End: 12-28-[address] HANNAH MAGALLANES Facility:H1 Start: 12-12-2021 End: 12-13-2021 ambulatory KESHA GREGG [facility] Other Start: 12-12-2021 Office outpatient ne w 30 minutes Kesha Olexa [facility] Start: 05-26-2021 Office outpatient vi [...] Activity Detail Author Start: 03-18-2024 Patient referral [facility] Work Phone: Start: 10-07-2023 End: 10-07-2023 Patient encounter procedure 10/07/2023 8:00 AM EST Office Visit [facility] [address] [facility] [place] [address] Barbie Tapia DO [address] [place] [address] [address] Chest WO contrast [facility] Patient referral [facility] Work Phone: XR Pelvis and Hip - bilateral Views [facility] Immunizations Immunization Date Immunization Notes Care Provider Fa jw 06-02-2018 Influenza, injectabl e, Madin Kyleigh Canine Kidney, preservative free, quadrivalent Argentina Clinton PT Work Phone: [facility] 05-17-2017 influenza virus vaccine, split virus (incl. purified surface antigen) Hannah Magallanes Other [facility] Other 05-17-2017 influenza virus vaccine, unspecified formulation [facility] 05-16-2017 influenza, injectabl e, quadrivalent, preservative free Argentina Clinton PT Work Phone: [facility] 06-28-2016 influenza, injectabl e, quadrivalent, preservative free Argentina Clinton PT Work Phone: [facility] 06-28-2016 tetanus and diphther ia toxoids, adsorbed, preservative free, for adult use (5 Lf of tetanus toxoid and 2 Lf of diphtheria toxoid) Hannah Magallanes Other [facility] 05-25-2015 influenza, seasonal, injectable, preservative free Argentina Clinton PT Work Phone: [facility] 05-25-2015 tetanus and diphther ia toxoids, adsorbed, preservative free, for adult use (5 Lf of tetanus toxoid and 2 Lf of diphtheria toxoid) Hannah Magallanes Other [facility] 06-15-1999 pneumococcal conjuga te vaccine, 7 valent Argentina Clinton PT Work Phone: [facility] Payers Date Payer Category Payer Medicaid [id number] 2013 Medicare [id number] 1960 Unknown [id number] 2.16.84 0.1.810269.3.579.2.593 1960 Unknown [id number] 2.16.84 0.1.974957.3.579.2.593 1960 Unknown [id number] 2.16.84 0.1.551293.3.579.2.593 1960 Unknown [id number] 2.16.84 0.1.129342.3.579.2.593 1960 Unknown [id number] 2.16.84 0.1.867338.3.579.2.593 1960 Unknown [id number] 2.16.84 0.1.120584.3.579.2.593 1960 Unknown [id number] 2.16.84 0.1.255520.3.579.2.593 1960 Unknown [id number] 2.16.84 0.1.402012.3.579.2.593 1960 Unknown [id number] 2.16.8 40.1.481537.3.579.2.727 1960 Unknown [id number] 2.16.84 0.1.826635.3.579.2.1259 1960 Unknown [id number] 2.16.84 0.1.427536.3.579.2.1259 1960 Unknown [id number] 2.16.84 0.1.010256.3.579.2.1259 1960 Unknown [id number] 2.16.84 0.1.864144.3.579.2.1259 1960 Unknown [id number] 2.16.840 .1.685391.3.579.2.1259 1960 Unknown [id number] 2.16. 840.1.230316.3.579.2.196 1960 Unknown [id number] 2.16. 840.1.725574.3.579.2.196 1960 Unknown [id number] 2.16. 840.1.128408.3.579.2.196 1960 Unknown [id number] 2.16. 840.1.909548.3.579.2.196 1960 Unknown [id number] 2.16. 840.1.841707.3.579.2.196 1960 Unknown [id number] 2.16. 840.1.879871.3.579.2.196 1959 Medicaid [id number] 2. 16.840.1.367334.19 1959 Medicare [id number] 2.1 6.840.1.850099.19 Self-pay Self Pay [id number] Social History Date Type Detail Facility Start: 09-02-2023 Sex Assigned At [facility] Tobacco smoking status No Smokin g Status Entered [facility] Start: 03-27-2023 Tobacco smoking status DCIS Smokes tobacco daily [facility] Work Phone: History of [...] [facility] Start: 02-06-2017 Tobacco smoking status DCIS Ex-smoker (finding) [facility] Medical Equipment Procedure Code Equipment [...] No attempts to hear back; closing referral. [facility] 10-02-2023 Miscellaneous Notes Formattin g of this note might be different from the original. No attempts to hear back; closing referral. documented in this encounter [facility] 09-13-2023 Evaluation note Encounter Date Diagnosis Assessment Notes Aug, Chronic obstructive pulmonary disease, unspecified (ICD-10 - J44.9) Finish antibiotics and prednisone as prescribed. Denies pulmonary referral at this time. Hasn't smoked since 09/08 and declines chantix or patches. Aug, Current smoker (ICD-10 - F17.200) [facility] 01-23-2024 Evaluation note* Encounter Date Diagnosis Assessment Notes Treatment Notes Treatment Clinical Notes Aug, Lumbar radicular pain (ICD-10 - M54.16) [facility] 01-19-2024 Evaluation note* Encounter Date Diagnosis Assessment Notes Treatment Notes Treatment Clinical Notes Aug, Lumbar radicular pain (ICD-10 - M54.16) [facility] 12-26-2023 Evaluation note* Encounter Date Diagnosis Assessment Notes Treatment Notes Treatment Clinical Notes Jul, Type 2 diabetes mellitus with hyperglycemia, without long-term current use of insulin (ICD-10 - E11.65) [facility] Other 12-26-2023 Evaluation note* Encounter Date Diagnosis [...] T3s after shoulder pain has improved post-operatively. [facility] Other 12-04-2023 Evaluation note* Encounter Date Diagnosis Assessment Notes Treatment Notes Treatment Clinical Notes Jul, Type 2 diabetes mellitus with hyperglycemia, without long-term current use of insulin (ICD-10 - E11.65) [facility] Other 12-01-2023 Evaluation note* Encounter Date Diagnosis Assessment Notes Treatment Notes Treatment Clinical Notes Jul, Type 2 diabetes mellitus with hyperglycemia, without long-term current use of insulin (ICD-10 - E11.65) [facility] Other 11-30-2023 Evaluation note* Encounter Date Diagnosis Assessment Notes Treatment Notes Treatment Clinical Notes Jun, Labral tear of shoulder, right, subsequent encounter (ICD-10 - S43.431D) [facility] Other 11-14-2023 Evaluation note* Encounter Date Diagnosis [...] pain (ICD-10 - R07.9) r/o cardiac cause [facility] Other 11-07-2023 Evaluation note* Encounter Date Diagnosis [...] to decrease dose and possibly discontinue medication. [facility] Other 11-02-2023 Evaluation note* Encounter Date Diagnosis Assessment Notes Treatment Notes Treatment Clinical Notes Jun, Acute pain of right shoulder (ICD-10 - M25.511) [facility] Other 10-30-2023 Evaluation note* Encounter Date Diagnosis Assessment Notes Treatment Notes Treatment Clinical Notes May, Acute pain of right shoulder (ICD-10 - M25.511) [facility] Other 10-23-2023 Evaluation note* Encounter Date Diagnosis Assessment Notes Treatment Notes Treatment Clinical Notes May, Acute pain of right shoulder (ICD-10 - M25.511) [facility] Other 10-16-2023 Evaluation note* Encounter Date Diagnosis Assessment Notes Treatment Notes Treatment Clinical Notes May, Acute pain of right shoulder (ICD-10 - M25.511) [facility] Other 10-10-2023 Evaluation note* Encounter Date Diagnosis Assessment Notes Treatment Notes Treatment Clinical Notes May, Acute pain of right shoulder (ICD-10 - M25.511) MRI and surgery planning pending. Pt understands this is a controlled substance and to call in 1 week w update on treatment plan. May, Bronchitis (ICD-10 - J40) Finish antibiotic, rest, hydrate Steroids for wheezing. [facility] Other 10-04-2023 Evaluation note* Encounter Date Diagnosis Assessment Notes Treatment Notes Treatment Clinical Notes May, Acute pain of right shoulder (ICD-10 - M25.511) Reviewed [place] and discussed short term plan of increase in pain medication. He is due for a refill of the T3s presently. Stop them, replace w norco. Pt understands weekly prescription and will need to d/c after anticipated surgery. [facility] Other 09-12-2023 Evaluation note* Encounter Date Diagnosis [...] office and the ER visit on 04/26 [facility] Other 07-05-2023 Evaluation note* Encounter Date Diagnosis [...] and will need less prn pain med. [facility] Other 06-01-2023 Evaluation note* Encounter Date Diagnosis Assessment Notes Treatment Notes Treatment Clinical Notes Jan, RUQ pain (ICD-10 - R10.11) Discussed differential. continues to decline c-scope. start w labs and GBUS. Jan, Other chronic pain (ICD-10 - G89.29) Jan, Pain in right shoulder (ICD-10 - M25.511) Pt requests referral to Dr. Edin atkins hopes for intrarticular injections. Jan, Pain in left shoulder (ICD-10 - M25.512) as above. [facility] Other 04-17-2023 Evaluation note* Encounter Date Diagnosis Assessment Notes Treatment Notes Treatment Clinical Notes Nov, Bronchitis (ICD-10 - J40) [facility] Other 04-11-2023 Evaluation note* Encounter Date Diagnosis Assessment Notes Treatment Notes Treatment Clinical Notes Nov, Disc degeneration, lumbar (ICD-10 - M51.36) Nov, Lumbar radicular pain (ICD-10 - M54.16) [facility] Other 04-07-2023 Evaluation note* Encounter Date Diagnosis [...] quit smoking. Pt verbalizes understanding and agreement. [facility] Other 02-15-2023 Evaluation note* Encounter Date Diagnosis Assessment Notes Treatment Notes Treatment Clinical Notes Sep, Lumbar radicular pain (ICD-10 - M54.16) [facility] Other 01-17-2023 Evaluation note* Encounter Date Diagnosis [...] is outlined on the test result page. [facility] Other 10-20-2022 NoteIndication: Calculus in kidney. 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 [facility] Other 04-26-2022 NotePROCEDURE: XR SHOULDER LT 2V or > COMPARISON: None. HISTORY: Pain of left shoulder joint FINDINGS: BONES:No acute fracture or dislocation. 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 No visible soft tissue swelling. EFFUSION:None visible. OTHER: Negative. IMPRESSION: Mild osteoarthritis Electronically authenticated by: BARBIE MEMBRENO Date: 2021-12-12 15:25[id number]* Encounter Date Diagnosis Assessment Notes [...] pain of left shoulder (ICD-10 - M25.512) [facility] Other 10-08-2021 Evaluation note* Encounter Date Diagnosis [...] as needed for cough. Advised patient that [place] contains antihistamine and cough suppressant and to be cautious using other OTC cold medications. Patient to follow up with PCP if symptoms do not improve. Immediate eval if SOB, difficulty breathing, chest pain, dizziness, or other concerning symptoms. Patient verbalizes understanding and is agreeable to treatment plan [facility] [employer] [facility] [place] Other Evaluation + Plan note No data available for this section [facility] noteNo InformationNort[facility] [employer] [facility] [place] Other Evaluation note* Diagnosis Onset Date Resolution Status Arthralgia acute Lumbar pain acute Type II diabetes mellitus ac cole [facility] Work Phone: Evaluation note* Diagnosis Onset Date Resolution Status Arthralgia acute Lumbar pain acute Type II diabetes mellitus ac cole Bilateral hip pain acute [facility] Work Phone: Evaluation note* Diagnosis Onset Date Resolution Status Arthralgia acute Lumbar pain acute Type II diabetes mellitus ac cole Bilateral hip pain acute Lumbar pain acute [facility] Work Phone: Evaluation note* Diagnosis Onset Date Resolution Status Submandibular abscess acute Chronic obstructive pulmonary disease, unspecified acute Esophageal abnormality acute Mass of left submandibular region acute [facility] Work Phone: History general Narrative - Reported* Type Description Date Medical History Asthma Medical History skin cancer-lip Surgical History Left lung biopsy 1977 Surgical History L4 and L5 disc fusion 1984 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 Surgical History carpal tunnel release 2016 Surgical History tonsillectomy Hospitalization History 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 Hospitalization History pneumonia [facility] [employer] [facility] [place] Other Hospital Discharge instructions No data available for this section [facility] instructions[facility] Orders* Referral to ENT Time Frame: 03/18/24, Location: None Selected [facility] Work Phone: Progress note No data available for this section [facility] Summary Purpose Family History No Family [...] 1 Epigastric abdominal pain (R10.13) Referral Organization [facility] Referring Provider First Name Hannah Referring Provider Last Name Sona Referring Provider Specialty [facility] [employer] Referred Organization [facility] Referred Provider Sai Martinez Referred Address ,[place], [place],[address] Referred Provider Specialty Surgery Referral Priority Routine General Notes Es Camilo 11:38:02 AM >received today, attachments made, notes locked, referral faxed Reason 01/28/23 Access Or tho - B shoulder pain L>R - hopes for injections. Diagnosis 1 Pain in right should er (M25.511) Referral Organization [facility] Referring Provider First Name Hannah Referring Provider Last Name Sona Referring Provider [facility] [employer] Referred Organization [facility] Referred Provider Barbie Tapia Referred Address ,[place], [place],[address] Referred Provider Specialty Orthopaedic Surgery Referral Priority Routine Referral Appointment Date 2023-01-28 General Notes Es Camilo 03:00:30 PM >received today, notes note locked, will fax when done sE Camilo 01/21/2023 10:35:11 AM >sent TE to [...] in right should er (M25.511) Referral Organization [facility] Referring Provider First Name Hannah Referring Provider Last Name Sona Referring Provider Specialty [facility] Referred Organization [facility] Referred Provider Barbie Tapia Referred Address ,[place], [place],[address] Referred Provider Specialty Orthopaedic Surgery Referral Priority Routine General Notes Leslee Es 03:00:30 PM >received today, notes note [...] section and content) DATE CREATED AUTHOR 02/10/[address] [facility] DATE CREATED AUTHOR AUTHOR'S ORGANIZ ATION 12/04/2022 [facility] DATE CREATED AUTHOR AUTHOR'S ORGANIZ ATION 06/01/2023 [facility] DATE CREATED AUTHOR AUTHOR'S ORGANIZ ATION 04/08/2024 [facility] DATE CREATED AUTHOR AUTHOR'S ORGANIZ ATION 2024 [facility] DATE CREATED AUTHOR AUTHOR'S ORGANIZ ATION 05/23/2024 [facility] Patient Care team informatio n (unrecognized [...] Provider Active Start : October 23, 2023 Can Capper Relationship Specialty Start Date End Date Hannah Magallanes MD [address] [facility] [place] [address] PCP - General Family Medicine 01/23/23 Team [...] BE BASED ON THE PRIMARY CLINICAL RECORDS. [facility] [employer] [facility] provides no warranty or guarantee of the accuracy or completeness of information in this document.
--- NOTE | 2024-05-27 08:01 | P.CN_ITS ---
Consult Note: HPI Data of Consult Patient: known to practice within the last 3 years Consult date: 12/26/23 Requesting Physician: Janneth Villalta NP Primary Care Provider: Hannah Gallo MD Consult Narrative Reason for consult: f/u Narrative: Nicholas Ziegler a pleasant 63 year old male with an extensive history of chronic low back pain post lumbar surgery in 1984, left l4 hemilaminectomy according to MRI. Patient also has a significant history of bilateral hip and groin pain. Patient rating low back pain sharp ache pressure shooting, increasing to 10/10 with twisting pushing pulling standing too long transitioning walking activity stairs, pain improved slightly when lying in recliner. Patient has failed to benefit from tylenol, allergy to NSAIDs, failed oxycodone-acetaminophen 5- 325mgs, hydrocodone-acetaminophen 10mgs, gabapentin unknown dosage. . Patient has failed to benefit from PT and HEP greater than 6 weeks, increases his pain. Previously a patient at [facility] receiving epidurals q2 months for 7 years per patient, last MAGAN 07/11 with benefit. Currently tolerating tylenol #3 TID PRN without side effects, has not been utilizing tizanidine or baclofen as it was not called in last visit. Recent bilateral L4-5 TFESI providing mild relief. cc:: CC: Janneth Villalta NP Review of Systems 2 ROS0 Status of ROS 10 or more systems reviewed and unremark able except as noted in history and below Musculoskeletal Reports: back pain [facility] Medical History Tobacco user ?Z72.0 - Tobacco use (ICD-10) Type 2 diabetes mellitus with hyperglycemia ?E11.65 - Type 2 diabetes mellitus with hyperglycemia (ICD-10) Acute exacerbation of chronic obstructive pulmonary disease (COPD) ?J44.1 - Chronic obstructive pulmonary disease with (acute) exacerbation (ICD-10) Lumbar degenerative disc disease ?M51.36 - Other intervertebral disc degeneration, lumbar region (ICD-10) Influenza ?J11.1 - Influenza due to unidentified influenza virus with other respiratory manifestations (ICD-10) Acute bronchospasm ?J98.01 - Acute bronchospasm (ICD-10) Postoperative pain, acute, shoulder ?G89.18 - Other acute postprocedural pain (ICD-10) ?M25.519 - Pain in unspecified shoulder (ICD-10) Fever ?R50.9 - Fever, unspecified (ICD-10) Acute pain of right shoulder ?M25.511 - Pain in right shoulder (ICD-10) Rotator cuff arthropathy of right shoulder ?M12.811 - Other specific arthropathies, not elsewhere classified, right shoulder (ICD-10) Diabetes ?E11.9 - Type 2 diabetes mellitus without complications (ICD-10) COPD (chronic obstructive pulmonary disease) ?J44.9 - Chronic obstructive pulmonary disease, unspecified (ICD-10) Surgical History H/O lumbosacral spine surgery ?Z98.890 - Other specified postprocedural states (ICD-10) S/P right rotator cuff repair ?Z98.890 - Other specified postprocedural states (ICD-10) Social History Within the past year, how often did you have a drink containing alcohol: never Score interpretation: A score less than 4 is consistent with normal alcohol consumption. 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 Little interest or pleasure in doing things: not at all Feeling down, depressed, or hopeless: not at all Feel stressed/tense/nervous/anxious/difficulty sleeping: not at all Do you think of yourself as: straight/heterosexual Gender Identity: male Meds Home Medications and Allergies Home Medications ?Medication ?Instructions ?Recorded ?Confirmed ?Type glipizide 5 mg-metformin 500 mg 1 tab PO DAILY 08/23/23 05/18/24 History tablet lancets (Accu-Chek Fastclix Lancet 09/08/23 09/08/23 History Drum) naloxone 4 mg/actuation nasal 4 mg intranasal Q3M PRN opioid 01/02/24 04/06/24 Rx spray (Narcan) overdose #2 ea acetaminophen 300 mg-codeine 30 mg See Rx Instructions .Route 05/07/24 05/18/24 Rx tablet .COMPLEX PRN pain #180 tabs baclofen 10 mg tablet 10 mg PO TID PRN muscle spasm 05/08/24 05/18/24 History Allergies Allergy/AdvReac Type Severity Reaction Status Date / Time fentanyl Allergy Intermediate Hives Verified 05/18/24 07:19 ofloxacin Allergy Intermediate HIVES Verified 05/18/24 07:19 olodaterol Allergy Intermediate SHORTNESS Verified 05/18/24 07:19 [From Stiolto Respimat] OF BREATH tiotropium Allergy Intermediate SHORTNESS Verified 05/18/24 07:19 [From Stiolto Respimat] OF BREATH zafirlukast Allergy Intermediate Hives Verified 05/18/24 07:19 ibuprofen [From Motrin] AdvReac Mild Hives Verified 05/18/24 07:19 Exam Constitutional Documenting provider has reviewed patient's vital signs: yes Common normals: no apparent distress, oriented x3, healthy appearing, alert and well nourished General appearance: cooperative [facility] [place] Common normals: normocephalic, hearing grossly normal bilaterally and moist oral mucous membranes Head and scalp: normocephalic Eye Common normals: PERRL Pupil: PERRL Neck & C-Spine Common normals: full ROM General: normal visual inspection Chest Common normals: inspection of chest normal Respiratory Common normals: normal respiratory effort, no retractions and no use of accessory muscles Back & Pelvis Lumbar spine/lower back: ROM limited, pain with ROM, lumbar spinal tenderness, paraspinal muscle tenderness, paraspinal muscle spasm, straight leg raise positive right and straight leg raise positive left Sacroiliac joints: SI joint(s) abnormal Other: sensation inact to bilateral L4,5 right positive hailee(patricks), gaenslens, thigh thrust, compression test positive facet loading strength 5/5 in BLE tirgger points and myofascial spasming noted below Back image (male): 2 1. 2. Extremity Common normals: normal to inspection and full ROM Right lower extremity: hip joint Left lower extremity: hip joint Other: significant increase in hip/groin pain with internal and external rotation of bilateral hips, right greater than left Neuro Common normals: oriented x3, CN's II-XII intact bilaterally, moves all extremities, no focal motor deficits, no sensory deficits noted and deep tendon reflexes 2+ bilaterally Sensorium/orientation: alert Gait (neuro): antalgic Motor exam: strength 5/5 throughout and no movement abnormalities noted Psych Common normals: mental status grossly normal, thought process normal, cooperative, affect normal, speech normal and activity/motor behavior normal Speech: normal speech Thought process: normal thought process Results Additional Findings Additional findings: If on a controlled substance or opioids, I have checked an [place] report on this patient and there are no aberrancies noted in the prescribing history.??If on a controlled substance or opioid a drug screen was completed and reviewed within the last year, and if there has not been a drug screen completed we ordered one today to monitor higher risk, state monitored pain medication use. As part of providing excellent, safe, comprehensive care, the following was completed at our patient's visit: 1. A medication reconciliation and review to ensure accurate knowledge of current/active medications, including asking our patients to inform us about any [id number] medications or herbal remedies/nutritional supplements/alternative remedies. 2. A review to specifically ensure our patients have had annual screening for screening for depression, screening for tobacco use, and screening for unhealthy alcohol use. For concerning screenings had a discussion with the patient, provided patient education, and recommended follow-up with primary care provider when appropriate. If patient noted with a risk of falling, they received education on strength, gait, and balance training to prevent future risk of falling. Assessment and Plan Assessment and Plan (1) Lumbar stenosis with neurogenic claudication: (2) Myalgia, other site: (3) Failed back syndrome: (4) Sacroiliitis: (5) Chronic prescription opiate use: Assessment and Plan: continues to report functional improvement, denies side effects improvement in ability to stand/walk tolerate ADLs risks vs benefits reviewed naloxone prescribed (6) Lumbar spondylosis: Plan stop tizanidine, start baclofen 10mg TID PRN pain/spasms. risks vs benefits reviewed continue tylenol #3 TID 1-2 tabs PRN moderate to severe pain, risks vs benefits reviewed. declining medication change at this time heat/ice encouraged f/u with oncology, likely dx of esophageal cancer nurse visit in 2 weeks to assess response to medications
== END 2024-05-27 07:37 | disposition home or self-care (01) ==
PROVIDERS: PCP Family Medicine; Visit Provider Nurse Practitioner
DX: M48.062 Spinal stenosis, lumbar region with neurogenic claudication (principal); M79.10 Myalgia, unspecified site; M96.1 Postlaminectomy syndrome, not elsewhere classified; M46.1 Sacroiliitis, not elsewhere classified; Z79.891 Long term (current) use of opiate analgesic; M47.816 Spondylosis without myelopathy or radiculopathy, lumbar region
CPT/HCPCS: G0463

== ENCOUNTER 2024-06-01 12:32 | Outpatient (OUT) | payer MEDICARE, SELFPAY ==
--- OUTSIDE RECORDS SUMMARY | 2024-06-01 12:48 | XMS_ITS | CCD ---
Author Organization [facility] CliniSywy Care Team Providers Care Geophysical Observer Name Role Phone Ronnie Kesha Unavailable Chepe Harriet Unavailable Jeremy Magallanes Unavailable SONA, DR JEREMY Jovel Admitting Unavailable MAGALLANES, DR JEREMY Jovel Attending Unavailable MAGALLANES, DR JEREMY Jovel Primary Care Unavailable MAGALLANES, DR JEREMY Jovel Consulting Unavailable TAVERASRUBI Consulting Unavailable OLEXA, KESHA Admitting Unavailable OLEXA, KESHA Attending Unavailable AMGALLANES, DR JEREMY Jovel Primary Care Unavailable HARPSWELL, DR BARBIE Goldberg Consulting Unavailable OLEXA, KESHA Consulting Unavailable OLEXA, KESHA Admitting Unavailable OLEXA, KESHA Attending Unavailable MAGALLANES, DR JEREMY Jovel Primary Care Unavailable MAGALLANES, DR JEREMY Jovel Referring Unavailable ZIEBER, DR YEISON Drummond Consulting Unavailable OLEXA, KESHA Consulting Unavailable BALL, DR VILLALOBOS Admitting Unavailable BALL, DR VILLALOBOS Attending Unavailable MAGALLANES, DR JEREMY Jovel Primary Care Unavailable BALL, DR VILLALOBOS Consulting Unavailable ZIEBER, DR YEISON Drummond Consulting Unavailable MAGALLANES, DR JEREMY Jovel Admitting Unavailable MAGALLANES, DR JEREMY Jovel Attending Unavailable MAGALLANES, DR JEREMY Jovel Primary Care Unavailable OLEXA, KESHA Admitting Unavailable OLEXA, KESHA Attending Unavailable MAGALLANES, DR JEREMY Jovel Primary Care Unavailable MAGALLANES, DR JEREMY Jovel Primary Care Unavailable HAY ., DR DESIR Admitting Unavailable HAY ., DR DESIR Attending Unavailable HAY ., DR DESIR Consulting Unavailable MAGALLANES, DR JEREMY Jovel Primary Care Unavailable BREE, DR CARLOS Drummond Admitting Unavailable BREE, DR CARLOS Drmumond Attending Unavailable BREE, DR CARLOS Drummond Consulting Unavailable MILLIE, HOSSATimothy Consulting Unavailable JEREMY MAGALLANES Primary Care Physician Barbie Tapia Referring Unavailable Pocdoron, Barbie Ko Attending Unavailable Pocdoron, Barbie Ko Admitting Unavailable Jeremy Magallanes MD Primary Care Provider [phone] POCDORON, BARBIE Ko Attending Unavailable POCOS, BARBIE Ko Referring Unavailable POCOSBARBIE Attending Unavailable MALATHI SANCHEZ Attending Unavailable JEREMY MAGALLANES Referring Unavailable BARBIE TAPIA Attending Unavailable Giedraitis , Andgloria Miranda Attending Unavailable Giedraitis , Andrius Ruth Attending Unavailable Giedraitis , Andrius Vytautchela Attending Unavailable Giedraitis , Andrius Yusufyttin Attending Unavailable Giedraitis , Andrius Vyttin Attending Unavailable Giedrakaterine JACOB, Teressarius Ruth Attending Unavailable Jeremy Magallanes MD Unavailable PRIYANKA VAZ Attending Unavailable JEREMY MAGALLANES Referring Unavailable JEREMY MAGALLANES Primary Care Unavailable Jeremy Magallanes MD Primary Care Provider [phone] Allergies Allergy Classification Reported Allergen(s) Allergy Type Date of Onset Reaction(s) Facility (20 sources) Ibuprofen Drug Allergy [facility] Other (20 sources) olodaterol / tiotropium Drug Allergy shortness of breath [facility] Other (20 sources) CT Scan dye Propensity to adverse reactions [facility] Other (7 sources) Ibuprofen; Translations: [IBUPROFEN] Drug Allergy 08-19-18 80 [facility] Repository (2 sources) Iodine (And Iodine Containting Drugs) Drug allergy (disorder) 09-07-19 16 [facility] Repository (1 source) NSAIDs Drug allergy (disorder) [facility] Repository (20 sources) fentaNYL Drug Allergy 12-05-19 24 Unknown, [facility] (5 sources) Ibuprofen Drug Allergy 01-15-20 15 Rash, [facility] (20 sources) Ofloxacin Drug Allergy 12-05-19 24 Unknown, [facility] (3 sources) zafirlukast Drug Allergy 01-15-[address] [facility] Other (20 sources) Zafirlukast *ANTIASTHMATIC AND BRONCHODILATOR AGEN Propensity to adverse reactions Unknown [facility] Other (20 sources) Ibuprofen & Diet Manage Prod *ANALGESICS - ANTI-IN Propensity to adverse reactions Unknown [employer] [facility] Other (3 sources) Allergies Reconciled Propensity to adverse reactions Unknown [employer] [facility] Other (20 sources) Iodinated contrast media (substance) Drug allergy 06-03-20 Rash, Hives [facility] Other (3 sources) patient allergy list reviewed by nurse or physicia Propensity to adverse reactions 10-05-19 Comment:Done [facility] Other (4 sources) olodaterol Drug Allergy 12-05-19 shortness of breath [facility] (4 sources) tiotropium Drug Allergy 12-05-19 shortness of breath [facility] (5 sources) Iodinated Contrast Media; Translations: [IODINATED CONTRAST MEDIA] Allergy to substance 06-03-20 [facility] (4 sources) Ibuprofen & Diet Manage Prod * Allergy to substance 12-04-19 [facility] (4 sources) Zafirlukast *ANTIASTHMATIC AND Allergy to substance 12-04-19 [facility] Medications Current Medications Medication Drug Class(es) [...] Active Start: 02-20-2023 take 1 tablet by dseirae th every six hours Acetaminophen-Codeine #3 300-30 [...] prn for 30 days Sep, Active take 2 tablets by mo [facility] every four hours as needed acetaminophen-codeine (TYLENOL #3) 300-30 mg per tablet Take 2 tablets by mouth every 4 (four) hours as needed. Active acetaminophen-co deine (TYLENOL with CODEINE #4) 300-60 mg per tablet Take 1-2 tablets by mouth in the morning and 1-2 tablets before bedtime. Active take 1 tablet by desirae th every six hours Acetaminophen-Codeine #4 300-60 MG 1 tablet as needed Orally every 6 hrs Active [id number] actuat albuterol 0.09 mg/actuat metered dose inhaler (18 sources) beta2-Adrenergic Agonist Start: 06-25-2023 take 2 [...] Inhalation every 4 hrs prn Jun, Active albuterol (PROVE NTIL HFA;VENTOLIN HFA) 90 mcg/actuation inhaler Inhale 2 puffs every 6 (six) hours as needed for wheezing. Pt states he only uses this twice a year, has not used in the last 3months Active amoxicillin 875 mg / clavulanate 125 [...] / metFORMIN hydrochloride 500 mg oral tablet (19 sources) Biguanide, Sulfonylurea Start: 07-19-2023 take 2 tablets by mouth twice daily Glipizide-Metformin Active TAB PO December 04, 2023 12:00am [employer] tab Orally bid; Note: Source Status: Start; Refills: 1; Qty: 360 Tablet; Provider: Sona Young ( ) Start: 07-19-2023 take 2 tablets by [facility] in the morning glipiZIDE-metFORMIN (Metaglip) 5-500 MG tablet Take 2 tablets by mouth in the morning and 2 tablets before bedtime. 0 07/19/2023 Active take 1 tablet by desirae twice daily glipiZIDE-metFORMIN HCl 5-500 MG 1 tablet with a meal Orally bid for 30 days Active omeprazole 40 mg delayed release oral capsule (1 source) Proton Pump Inhibitor Start: 05-27-2024 take 1 capsule by mouth in the morning omeprazole (PriLOSEC) 40 mg capsule Indications: Gastroesophageal reflux disease, unspecified whether esophagitis present Take 1 capsule (40 mg total) by mouth in the morning. 60 capsule 05/27/2024 Active ondansetron 4 mg disintegrating oral tablet (1 source) Serotonin-3 Receptor Antagonist Start: 04-27-2024 ondansetron ODT (ZOFRAN ODT) 4 mg disintegrating tablet Dissolve 1 tablet (4 mg total) on tongue once. 04/27/2024 Active predniSONE 10 mg oral tablet (14 sources) Start: 04-30-2023 predniSONE 10 MG 4 tabs po daily x 2 days, 3 tabs daily x 2 days, 2 tabs daily x 2 days, 1 tab daily x 2 days Orally Once a day for 8 Apr, Active Start: 11-23-2022 take 2 tablets by [facility] every twenty-four hours predniSONE 20 MG 2 [...] days May, Active Start: 2023 HYDROcodone-ac etaminophen ([place]) 10-325 MG tablet Start: 2023 take 1 [...] 30 mg oral tablet (5 sources) Uncompetitive R-naupqx-T-aspartate Receptor Antagonist, Sigma-1 Agonist Start: 05-26-2021 take 1 tablet by mouth every eight hours Ferguson DMT 30-30 MG 1 tablet Orally every 8 hours for 7 days May, Not-Taking DULoxetine 60 mg delayed release oral capsule (12 sources) Serotonin and Norepinephrine Reuptake Inhibitor Start: 02-19-2024 End: 03-18-2024 take 1 capsule by mouth once daily Duloxetine Discontinued 0 .ROUTE .COMPLEX 90 February 19, 2024 8:39am March 18, 2024 9:00am TAKE 1 CAPSULE BY MOUTH EVERY DAY FOR 90 DAYS Start: 02-19-2024 End: 02-19-2024 take 60 mg by mouth once daily Duloxetine Discontinued 60 MG PO Daily February 19, 2024 12:00am February 19, 2024 8:39am Start: 02-20-2023 take 1 capsule by mo [facility] every twenty-four hours Cymbalta 60 MG [...] esophagitis; Translations: [Gastro-esophageal reflux disease without esophagitis] Onset: 4 05-27-2024 Chronic Esophageal disorders (2 sources) Disorder of esophagus; Translations: [Disease of esophagus, unspecified] 03-18-2024 Episodic Gastrointestinal hemorrhage (20 sources) Rectal hemorrhage; Translations: [Hemorrhage of anus and rectum] Onset: 6 05-27-2024 Episodic Genitourinary symptoms and ill-defined conditions (3 sources) Blood in urine; Translations: [Hematuria, unspecified] Episodic Malaise and fatigue (3 sources) Fatigue; Translations: [Other fatigue] Episodic Nausea and vomiting (2 sources) Nausea; Translations: [Vomiting] Onset: 4 Episodic Nonspecific chest pain (8 sources) Chest [...] disorders (20 sources) Dysphagia; Translations: [Dysphagia, unspecified] 05-27-2024 Episodic Other gastrointestinal disorders (1 source) Dysphagia, unspecified; Translations: [Dysphagia, unspecified] Onset: 4 Episodic Other liver diseases (20 sources) High [...] Translations: [Obesity, unspecified] Onset: 8 Chronic Other screening for suspected conditions (not mental disorders or infectious disease) (1 source) Barium swallow abnormal; Translations: [Abnormal findings on diagnostic imaging of other parts of digestive tract] 05-27-2024 Episodic Other skin disorders (1 source) Mass of [...] unspecified, uncomplicated] Onset: 2 Resolved: 2 Chronic Unclassified (1 source) postive cologuard Onset: 4 Unclassified (1 source) Emotional state finding Onset: 4 Past or Other Problems Problem Classification Problem Date Documented Da te Episodic/Chronic Biliary tract disease (20 sources) Chronic cholecystitis [...] 10-05-2015 Episodic Other aftercare (1 source) Other fdc (current) drug therapy; Translations: [OTH FDC CURRENT DRUG THERAPY] Onset: 12-29-2021 Episodic Other [...] Test Name Value Interpretation Reference Range Facility Nilda 05-14-2024 ANGELA Telephone ([id number]) NICHOLAS CRAIG ([id number]) 1960 M Date Time Provider Department 05/14/24 MERAZ, HALLEKobi [id number] During your visit today, we recorded the following information about you: Keily Martines 05/14/2024 1:11 PM Signed Referral was sent from [facility] for new consult with Dr Meraz Please see below and advise Vivian Morley 05/15/2024 11:54 AM Addendum Consult from Dr. 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 Basophils Auto (Bld) [#/Vol] on 02-27-2024 Basophils (Bld) [#/Vol] 0.1 10 3/uL 0.0-0.1 [facility] Basophils/100 WBC Auto (Bld) on 02-27-2024 Basophils/100 WBC (Bld) 0.5 % 0.2-2.0 [facility] Eosinophils/100 WBC Auto (Bl d)on 02-27-2024 Eosinophils/100 WBC (Bld) 2.5 % 0.9-7.0 [facility] Erythrocyte distribution wid th Auto (RBC) [Ratio]on 02-27-2024 Erythrocyte distribution width (RBC) [Ratio] 13.5 % 11.0-15.0 [facility] Estimated glomerular filtrat ion rate (GFR) non- Americanon 02-27-2024 GFR/1.73 sq M.predicted among non-blacks MDRD (S/P/Bld) [Vol rate/Area] mL/min/{1.73_m2} >=60 [facility] Hematocrit Auto (Bld) [Volum e fraction]on 02-27-2024 Hematocrit (Bld) [Volume fraction] 47.1 % 42.0-54.0 [facility] Hemoglobin [Mass/volume] in Bloodon 02-27-2024 Hemoglobin (Bld) [Mass/Vol] 15.5 g/dL 14.0-18.0 [facility] Laboratory - Chemistry and C hemistry - challengeon 02-27-2024 Calcium [Mass/Vol] 8.9 mg/dL 8.5-10.1 [facility] Chloride [Moles/Vol] 98 mmol/L 98-107 [facility] CO2 [Moles/Vol] 28.1 mmol/L 21.0-32.0 [facility] Creatinine [Mass/Vol] 0.86 mg/dL 0.70-1.30 [facility] GFR/1.73 sq M.predicted MDRD (S/P/Bld) [Vol rate/Area] mL/min/{1.73_m2} >=60 [facility] Glucose [Mass/Vol] 237 mg/dL High 74-106 [facility] Lactate [Moles/Vol] 1.3 mmol/L 0.4-2.0 [facility] Potassium [Moles/Vol] 4.4 mmol/L 3.5-5.1 [facility] Sodium [Moles/Vol] 130 mmol/L Low 136-145 [facility] Urea nitrogen [Mass/Vol] 21.0 mg/dL High 7.0-18.0 [facility] Urea nitrogen/Creatinine [Mass ratio] 24.4 mg/mg [facility] Laboratory - Hematology and Cell countson 02-27-2024 Immature granulocytes/100 WBC (Bld) 0.3 % 0.0-0.5 [facility] Leukocytes [#/volume] correc jean claude for nucleated erythrocytes in Blood by Automated counon 02-27-2024 WBC corrected for nucl RBC Auto (Bld) [#/Vol] 9.3 10 3/uL 4.0-11.0 [facility] Lymphocytes Auto (Bld) [#/Vo l]on 02-27-2024 Lymphocytes (Bld) [#/Vol] 2.4 10 3/uL 1.2-3.8 [facility] Lymphocytes/100 WBC Auto (Bl d)on 02-27-2024 Lymphocytes/100 WBC (Bld) 25.5 % 20.5-60.0 [facility] MCH Auto (RBC) [Entitic mass ]on 02-27-2024 MCH (RBC) [Entitic mass] 29.1 pg 25.9-34.0 [facility] MCHC Auto (RBC) [Mass/Vol]on 02-27-2024 MCHC (RBC) [Mass/Vol] 32.9 g/dL 29.9-35.2 [facility] MCV Auto (RBC) [Entitic vol] on 02-27-2024 MCV (RBC) [Entitic vol] 88.5 fL 80.0-94.0 [facility] Monocytes Auto (Bld) [#/Vol] on 02-27-2024 Monocytes (Bld) [#/Vol] 1.1 10 3/uL High 0.3-0.8 [facility] Monocytes/100 WBC Auto (Bld) on 02-27-2024 Monocytes/100 WBC (Bld) 12.0 % 1.7-12.0 [facility] Neutrophils Auto (Bld) [#/Vo l]on 02-27-2024 Neutrophils (Bld) [#/Vol] 5.5 10 3/uL 1.4-6.5 [facility] Neutrophils/100 WBC Auto (Bl d)on 02-27-2024 Neutrophils/100 WBC (Bld) 59.2 % 43.0-75.0 [facility] No Panel Informationon 02-26 Eosinophils # (Auto) 0.2 10 3/uL 0.0-0.7 [facility] Immature Granulocyte # (Auto) 0.03 10 3/uL 0.00-0.03 [facility] Platelet mean volume Auto (B ld) [Entitic vol]on 02-27-2024 Platelet mean volume (Bld) [Entitic vol] 8.8 fL Low 9.5-13.5 [facility] Platelets Auto (Bld) [#/Vol] on 02-27-2024 Platelets (Bld) [#/Vol] 288 10 3/uL 150-450 [facility] RBC Auto (Bld) [#/Vol]on RBC (Bld) [#/Vol] 5.32 10 6/uL 4.70-6.10 [facility] Serum or plasma anion gap de terminationon 02-27-2024 Anion gap [Moles/Vol] 8.3 mmol/L [facility] Basophils Auto (Bld) [#/Vol] on 12-05-2023 Basophils (Bld) [#/Vol] 0.1 10 3/uL 0.0-0.1 [facility] Basophils/100 WBC Auto (Bld) on 12-05-2023 Basophils/100 WBC (Bld) 0.9 % 0.2-2.0 [facility] Eosinophils/100 WBC Auto (Bl d)on 12-05-2023 Eosinophils/100 WBC (Bld) 2.7 % 0.9-7.0 [facility] Erythrocyte distribution wid th Auto (RBC) [Ratio]on 12-05-2023 Erythrocyte distribution width (RBC) [Ratio] 13.1 % 11.0-15.0 [facility] Estimated glomerular filtrat ion rate (GFR) non- Americanon 12-05-2023 GFR/1.73 sq M.predicted among non-blacks MDRD (S/P/Bld) [Vol rate/Area] mL/min/{1.73_m2} >=60 [facility] Glucose mean value [Mass/vol ume] in Blood Estimated from glycated hemoglobinon 12-05-2023 Average glucose Estimated from glycated hemoglobin (Bld) [Mass/Vol] 171 mg/dL [facility] Hematocrit Auto (Bld) [Volum e fraction]on 12-05-2023 Hematocrit (Bld) [Volume fraction] 48.9 % 42.0-54.0 [facility] Hemoglobin [Mass/volume] in Bloodon 12-05-2023 Hemoglobin (Bld) [Mass/Vol] 16.0 g/dL 14.0-18.0 [facility] Laboratory - Chemistry and C hemistry - challengeon 12-05-2023 Calcium [Mass/Vol] 9.7 mg/dL 8.5-10.1 [facility] Chloride [Moles/Vol] 102 mmol/L 98-107 [facility] CO2 [Moles/Vol] 27.6 mmol/L 21.0-32.0 [facility] Creatinine [Mass/Vol] 1.01 mg/dL 0.70-1.30 [facility] GFR/1.73 sq M.predicted MDRD (S/P/Bld) [Vol rate/Area] mL/min/{1.73_m2} >=60 [facility] Glucose [Mass/Vol] 156 mg/dL High 74-106 [facility] Potassium [Moles/Vol] 4.4 mmol/L 3.5-5.1 [facility] Sodium [Moles/Vol] 139 mmol/L 136-145 [facility] Urea nitrogen [Mass/Vol] 13.0 mg/dL 7.0-18.0 [facility] Urea nitrogen/Creatinine [Mass ratio] 12.9 mg/mg [facility] Laboratory - Hematology and Cell countson 12-05-2023 ESR (Bld) [Velocity] 17 mm/h <=20 [facility] HbA1c (Bld) [Mass fraction] 7.6 % High 4.5-6.2 [facility] Comment on above: ADA RECOMMENDED LIMI T 4.0 - 6.0ADA THERAPEUTIC TARGET < 7.0ACTION SUGGESTED> 7.0 Immature granulocytes/100 WBC (Bld) 0.4 % 0.0-0.5 [facility] Leukocytes [#/volume] correc jean claude for nucleated erythrocytes in Blood by Automated counon 12-05-2023 WBC corrected for nucl RBC Auto (Bld) [#/Vol] 7.7 10 3/uL 4.0-11.0 [facility] Lymphocytes Auto (Bld) [#/Vo l]on 12-05-2023 Lymphocytes (Bld) [#/Vol] 2.4 10 3/uL 1.2-3.8 [facility] Lymphocytes/100 WBC Auto (Bl d)on 12-05-2023 Lymphocytes/100 WBC (Bld) 31.2 % 20.5-60.0 [facility] MCH Auto (RBC) [Entitic mass ]on 12-05-2023 MCH (RBC) [Entitic mass] 28.5 pg 25.9-34.0 [facility] MCHC Auto (RBC) [Mass/Vol]on 12-05-2023 MCHC (RBC) [Mass/Vol] 32.7 g/dL 29.9-35.2 [facility] MCV Auto (RBC) [Entitic vol] on 12-05-2023 MCV (RBC) [Entitic vol] 87.0 fL 80.0-94.0 [facility] Monocytes Auto (Bld) [#/Vol] on 12-05-2023 Monocytes (Bld) [#/Vol] 0.7 10 3/uL 0.3-0.8 [facility] Monocytes/100 WBC Auto (Bld) on 12-05-2023 Monocytes/100 WBC (Bld) 9.5 % 1.7-12.0 [facility] Neutrophils Auto (Bld) [#/Vo l]on 12-05-2023 Neutrophils (Bld) [#/Vol] 4.2 10 3/uL 1.4-6.5 [facility] Neutrophils/100 WBC Auto (Bl d)on 12-05-2023 Neutrophils/100 WBC (Bld) 55.3 % 43.0-75.0 [facility] No Panel Informationon 12-04 Eosinophils # (Auto) 0.2 10 3/uL 0.0-0.7 [facility] Immature Granulocyte # (Auto) 0.03 10 3/uL 0.00-0.03 [facility] Platelet mean volume Auto (B ld) [Entitic vol]on 12-05-2023 Platelet mean volume (Bld) [Entitic vol] 8.6 fL Low 9.5-13.5 [facility] Platelets Auto (Bld) [#/Vol] on 12-05-2023 Platelets (Bld) [#/Vol] 330 10 3/uL 150-450 [facility] RBC Auto (Bld) [#/Vol]on RBC (Bld) [#/Vol] 5.62 10 6/uL 4.70-6.10 [facility] Serum or plasma anion gap de terminationon 12-05-2023 Anion gap [Moles/Vol] 13.8 mmol/L [facility] Magnesiumon 07-02-2023 Magnesium [Mass/Vol] 2.8294331 mg/dL Normal 1.8-2.4 mg/dL [facility] Other Magnesium see note [facility] Other MRI Shoulder w/o Contrast [facility] 05-31-2023 MRI Shoulder w/o Contrast Right Exam Date/Time: 05/30/2023 14:25 EDT Reason for Exam: [id number] Report IMPRESSION: Full-thickness rotator cuff tearing involving [...] TAMARA Technologist: STELLA Technical Comments None Normal [facility] Consent for Treatmenton 05-19 Consent for Treatment [id number] .[id number] Normal [facility] RAD - MRI Screening Formon 1 RAD - MRI Screening Form [id number]. 00TIFF Normal [facility] Physician Orderon 05-09-2023 Physician Order [id number] 1.00CD:127 Normal [facility] XR CHEST 2 Von 11-24-2022 XR CHEST [...] by: RUBI TAVERAS Date: 2022-11-24 17:17 Normal [facility] CT LUNG CANCER SCREENINGon 1 09-20-2021 [...] 2022-07-20 07:18 Normal [facility] CBC AUTO DIFFon 06-07-2022 BASO # 0.1 103/ul Normal 0.0-0.1 [facility] Comment on above: Performed By: #### C BC #### [facility] [address] [place] [address] Dr. Eran Chacon Basophils/100 WBC (Bld) 0.6 % Normal 0.2-2.0 [facility] Comment on above: Performed By: #### C BC #### [facility] [address] [place] [address] Dr. Eran Chacon EO # 0.3 103/ul Normal 0.0-0.7 [facility] Comment on above: Performed By: #### C BC #### [facility] [address] [place] [address] Dr. Eran Chacon Eosinophils/100 WBC (Bld) 3.3 % Normal 0.9-7.0 [facility] Comment on above: Performed By: #### C BC #### [facility] [address] [place] [address] Dr. Eran Chacon Erythrocyte distribution width (RBC) [Ratio] 12.9 % Normal 11.0-15.0 [facility] Comment on above: Performed By: #### C BC #### [facility] [address] [place] [address] Dr. Eran Chacon Hematocrit (Bld) [Volume fraction] 47.7 % Normal 42.0-54.0 [facility] Comment on above: Performed By: #### C BC #### [facility] [address] [place] [address] Dr. Eran Chacon Hemoglobin (Bld) [Mass/Vol] 15.9 g/dL Normal 14.0-18.0 [facility] Comment on above: Performed By: #### C BC #### [facility] [address] [place] [address] Dr. Eran Chacon IG # 0.02 10e3/ul Normal 0.00-0.03 [facility] Comment on above: Performed By: #### C BC #### [facility] [address] [place] [address] Dr. Eran Chacon IG % 0.2 % Normal 0.0-0.5 [facility] Comment on above: Performed By: #### C BC #### [facility] [address] [place] [address] Dr. Eran Chacon LYMPH # 3.4 103/ul Normal 1.2-3.8 [facility] Comment on above: Performed By: #### C BC #### [facility] [address] [place] [address] Dr. Eran Chacon Lymphocytes/100 WBC (Bld) 34.5 % Normal 20.5-60.0 [facility] Comment on above: Performed By: #### C BC #### [facility] [address] [place] [address] Dr. Eran Chacon MANUAL DIFF REQ NO Normal [facility] Comment on above: Performed By: #### C BC #### [facility] [address] [place] [address] Dr. Eran Chacon MCH (RBC) [Entitic mass] 29.6 pg Normal 25.9-34.0 [facility] Comment on above: Performed By: #### C BC #### [facility] [address] [place] [address] Dr. Eran Chacon MCHC (RBC) [Mass/Vol] 33.3 g/dL Normal 29.9-35.2 [facility] Comment on above: Performed By: #### C BC #### [facility] [address] [address] [address] Eran Chacon MCV (RBC) [Entitic vol] 88.8 fL Normal 80.0-94.0 [facility] Comment on above: Performed By: #### C BC #### [facility] [address] [place] [address] Dr[address] Eran Chacon MONO # 0.9 103/ul Critically high 0.3-0.8 [facility] Comment on above: Performed By: #### C BC #### [facility] [address] [place] [address] [address] Eran Chacon Monocytes/100 WBC (Bld) 9.3 % Normal 1.7-12.0 [facility] Comment on above: Performed By: #### C BC #### [facility] [address] [address] [address] Eran Chacon NEUT # 5.2 103/ul Normal 1.4-6.5 [facility] Comment on above: Performed By: #### C BC #### [facility] [address] [place] [address] Dr. Eran Chacon Neutrophils/100 WBC (Bld) 52.1 % Normal 43.0-75.0 [facility] Comment on above: Performed By: #### C BC #### [facility] [address] [address] [address] Eran Chacon Platelet mean volume (Bld) [Entitic vol] 8.8 fL Critically low 9.5-13.5 [facility] Comment on above: Performed By: #### C BC #### [facility] [address] [place] [address] Dr. Eran Chacon PLT 287 103/ul Normal 150-450 [facility] Comment on above: Performed By: #### C BC #### [facility] [address] [address] [address] Eran Chacon RBC 5.37 106/ul Normal 4.70-6.10 [facility] Comment on above: Performed By: #### C BC #### [facility] [address] [place] [address] Dr. Eran Chacon WBC 9.9 103/ul Normal 4.0-11.0 [facility] Comment on above: Performed By: #### C BC #### [facility] [address] [place] [address] Dr. Eran Chacon ER URINE PROFILEon 2 Bilirubin Ql (U) Negative Normal NEGATIVE [facility] Comment on above: Performed By: #### Med PIERRER, UMICRO #### [facility] [address] [place] [address] Dr. Earn Chacon Clarity (U) CLEAR Normal CLEAR [facility] Comment on above: Performed By: #### Med SHER, UMICRO #### [facility] [address] [place] [address] Dr. Eran Chacon Color (U) YELLOW Normal YELLOW [facility] Comment on above: Performed By: #### Med SHER UMICRO #### [facility] [address] [place] [address] Dr. Eran GATES A micrscopic examination will be performed if indicated. Normal [facility] Comment on above: Performed By: #### Med SHER UMICRO #### [facility] [address] [place] [address] Dr. Eran Chacon Glucose Ql (U) 500 mg/dl Abnormal NEGATIVE [facility] Comment on above: Performed By: #### Med SHER, UMICRO #### [facility] [address] [place] [address] Dr. Eran Chacon Hemoglobin Ql (U) TRACE-INTACT Abnormal NEGATIVE [facility] Comment on above: Performed By: #### Med SHER, UMICRO #### [facility] [address] [place] [address] Dr. Eran Chacon Ketones Ql (U) Negative Normal NEGATIVE [facility] Comment on above: Performed By: #### E RUR, UMICRO #### [facility] [address] [place] [address] Dr. Eran Chacon LEUKOCYTES Negative Normal NEGATIVE [facility] Comment on above: Performed By: #### HANNA BATES #### [facility] [address] [place] [address] Dr. Eran Chacon Nitrite Ql (U) Negative Normal NEGATIVE [facility] Comment on above: Performed By: #### HANNA BATES #### [facility] [address] [place] [address] Dr. Eran Chacon pH (U) 6.0 [pH] Normal 5-9 [facility] Comment on above: Performed By: #### HANNA BATES #### [facility] [address] [place] [address] Dr. Eran Chacon SPEC GRAVITY 1.025 Normal 1.005-<=1.025 [facility] Comment on above: Performed By: #### HANNA BATES #### [facility] [address] [place] [address] Dr. Eran Chacon UA PROTEIN Negative Normal NEGATIVE/ TRACE [facility] Comment on above: Performed By: #### HANNA BATES #### [facility] [address] [place] [address] Dr. Eran Chacon UR MICRO IND INDICATED Normal [facility] Comment on above: Performed By: #### HANNA BATES #### [facility] [address] [place] [address] Dr. Eran Chacon Urobilinogen Qn (U) 0.2 {Aureliano'U}/dL Normal 0.2 - 1. 0 [facility] Comment on above: Performed By: #### HANNA BATES #### [facility] [address] [place] [address] Dr. Eran Chacon PROF 14(COMP METB)on 022 Albumin [Mass/Vol] 4.0 g/dL Normal 3.4-5.0 [facility] Comment on above: Performed By: #### C MP #### [facility] [address] [place] [address] Dr. Eran Chacon Albumin/Globulin [Mass ratio] 1.2 {ratio} Normal [facility] Comment on above: Performed By: #### C MP #### [facility] [address] [place] [address] Dr. Eran Chacon ALP [Catalytic activity/Vol] 104 U/L Normal 46-116 [facility] Comment on above: Performed By: #### C MP #### [facility] [address] [place] [address] Dr. Eran Chacon ALT [Catalytic activity/Vol] 28 U/L Normal 16-63 [facility] Comment on above: Performed By: #### C MP #### [facility] [address] [place] [address] Dr. Eran Chacon Anion gap [Moles/Vol] 7.2 mmol/L Normal [facility] Comment on above: Performed By: #### C MP #### [facility] [address] [place] [address] Dr. Eran Chacon AST [Catalytic activity/Vol] 14 U/L Critically low 15-37 [facility] Comment on above: Performed By: #### C MP #### [facility] [address] [place] [address] Dr. Eran Chacon Bilirubin [Mass/Vol] 0.4 mg/dL Normal 0.2-1.0 [facility] Comment on above: Performed By: #### C MP #### [facility] [address] [place] [address] Dr. Eran Chacon Calcium [Mass/Vol] 9.0 mg/dL Normal 8.5-10.1 [facility] Comment on above: Performed By: #### C MP #### [facility] [address] [place] [address] Dr. Eran Chacon Chloride [Moles/Vol] 103 mmol/L Normal 98-107 [facility] Comment on above: Performed By: #### C MP #### [facility] [address] [place] [address] Dr. Eran Chacon CO2 [Moles/Vol] 30.0 mmol/L Normal 21.0-32.0 [facility] Comment on above: Performed By: #### C MP #### [facility] [address] [place] [address] Dr. Eran Chacon Creatinine [Mass/Vol] 0.85 mg/dL Normal 0.70-1.30 [facility] Comment on above: Performed By: #### C MP #### [facility] [address] [address] [address] Eran Chacon EGFR-AF CENTRAL AFRICAN >60 Normal >=60 [facility] Comment on above: Performed By: #### C MP #### [facility] [address] [place] [address] Dr. Eran Chacon EGFR-NON AF CENTRAL AFRICAN >60 Normal >=60 [facility] Comment on above: Performed By: #### C MP #### [facility] [address] [place] [address] Dr. Eran Chacon Globulin (S) [Mass/Vol] 3.3 g/dL Normal [facility] Comment on above: Performed By: #### C MP #### [facility] [address] [place] [address] Dr. Eran Chacon Glucose [Mass/Vol] 165 mg/dL Critically high 74-106 [facility] Comment on above: Performed By: #### C MP #### [facility] [address] [place] [address] Dr. Eran Chacon Potassium [Moles/Vol] 4.2 mmol/L Normal 3.5-5.1 [facility] Comment on above: Performed By: #### C MP #### [facility] [address] [place] [address] Dr. Eran Chacon Protein [Mass/Vol] 7.3 g/dL Normal 6.4-8.2 [facility] Comment on above: Performed By: #### C MP #### [facility] [address] [place] [address] Dr. Eran Chacon Sodium [Moles/Vol] 136 mmol/L Normal 136-145 [facility] Comment on above: Performed By: #### C MP #### [facility] [address] [place] [address] Dr. Eran Chacon Urea nitrogen [Mass/Vol] 10.0 mg/dL Normal 7.0-18.0 [facility] Comment on above: Performed By: #### C MP #### [facility] [address] [place] [address] Dr. Eran Chacon Urea nitrogen/Creatinine [Mass ratio] 11.8 mg/mg Normal [facility] Comment on above: Performed By: #### C MP #### [facility] [address] [place] [address] Dr. Eran Chacon URINE MICROSCOPIC ONLYon BACTERIA NONE SEEN Normal NONE SEEN [facility] Comment on above: Performed By: #### Med SHER UMICRO #### [facility] [address] [place] [address] Dr. Eran Chacon Bacteria identified Cx Nom (U) NOT INDICATED Normal [facility] Comment on above: Performed By: #### Med SHER UMICRO #### [facility] [address] [place] [address] Dr. Eran Chacon CAST NONE SEEN Normal NONE SEEN [facility] Comment on above: Performed By: #### Med SHER UMICRO #### [facility] [address] [place] [address] Dr. Eran Chacon Crystals LM Nom (Urine sed) NONE SEEN Normal NONE SEEN [facility] Comment on above: Performed By: #### Med SHER UMICRO #### [facility] [address] [place] [address] Dr. Eran Chacon Epithelial cells LM Ql (Urine sed) RARE Normal NONE SEEN /RARE [facility] Comment on above: Performed By: #### Med SHER UMICRO #### [facility] [address] [place] [address] Dr. Eran Chacon MUCOUS NONE SEEN Normal NONE SEEN [facility] Comment on above: Performed By: #### Med SHER UMICRO #### [facility] [address] [place] [address] Dr. Eran Chacon RBC 0-2 Normal 0-2 [facility] Comment on above: Performed By: #### Med HANNA SHER #### [facility] [address] [address] [address] Eran Chacon WBC 2-5 Abnormal NONE SEEN [facility] Comment on above: Performed By: #### HANNA BATES #### [facility] [address] [address] [address] Eran Chacon MRI SHOULDER LT WO [...] YEISON NAVAS Date: 2022-02-02 17:09 Normal [facility] XR shoulder LT min 2V*on XR shoulder LT min 2V* [facility] [place] [address] [place] [id number] XRay Report Signed Patient: Nicholas Craig MR#: [id number] : 1960 Acct:[id number] Age/Sex: 61 / M ADM Date: 01/25/22 Loc: [facility] [place] Room: Type: [facility] Attending Dr: Kesha Trujillo MD Ordering [...] M.D.01/25/2022 11:41 AM Dictation Location: [place] [address] Transcribed By: [facility] 01/25/22 1141 Dictated By: Otilia Nunez MD 01/25/22 1139 Signed By: 01/25/22 1141 Normal [facility] Vital Signs Date Time Vital Sign Value Performing Clinician Facility 05-27-2024 14:56-0400 Body height 175.3 cm Priyanka DESHPANDE Work Phone: [facility] [employer] 05-27-2024 14:56-0400 Body mass index (BMI) [Ratio] 33.97 kg/m2 Priyanka DESHPANDE Work Phone: [facility] 05-27-2024 14:56-0400 Body weight 104.33 kg Priyanka Vaz GRAIN MERCHANDISING MANAGER-FREELANCE PROGRAMMER/APP DEVELOPER Work Phone: [facility] 03-18-2024 08:46-0400 Body height 175.26 cm [facility] 03-18-2024 08:46-0400 Body mass index (BMI) [Ratio] 34.4 kg/m2 [facility] 03-18-2024 08:46-0400 Body weight 105.68 kg [facility] 03-18-2024 08:46-0400 Diastolic blood pressure 80 mm[Hg] [facility] 03-18-2024 08:46-0400 Heart rate 72 /min [facility] 03-18-2024 08:46-0400 Systolic blood pressure 130 mm[Hg] [facility] 03-03-2024 11:54-0400 Body height 175.26 cm [facility] 03-03-2024 11:54-0400 Body mass index (BMI) [Ratio] 34.7 kg/m2 [facility] 03-03-2024 11:54-0400 Body weight 106.59 kg [facility] 03-03-2024 11:54-0400 Diastolic blood pressure 81 mm[Hg] [facility] 03-03-2024 11:54-0400 Heart rate 69 /min [facility] 03-03-2024 11:54-0400 Systolic blood pressure 129 mm[Hg] [facility] 12-17-2023 08:54-0400 Body height 175.26 cm [facility] 12-17-2023 08:54-0400 Body mass index (BMI) [Ratio] 35.2 kg/m2 [facility] 12-17-2023 08:54-0400 Body weight 108.4 kg [facility] 12-17-2023 08:54-0400 Diastolic blood pressure 76 mm[Hg] [facility] 12-17-2023 08:54-0400 Heart rate 76 /min [facility] 12-17-2023 08:54-0400 Systolic blood pressure 154 mm[Hg] [facility] 12-05-2023 08:52-0400 Body height 175.26 cm [facility] 12-05-2023 08:52-0400 Body mass index (BMI) [Ratio] 35 kg/m2 [facility] 12-05-2023 08:52-0400 Body weight 107.67 kg [facility] 12-05-2023 08:52-0400 Diastolic blood pressure 78 mm[Hg] [facility] 12-05-2023 08:52-0400 Heart rate 69 /min [facility] 12-05-2023 08:52-0400 Systolic blood pressure 147 mm[Hg] [facility] 09-13-2023 13:30-0500 Body height 175.26 cm Jeremy Magallanes Other [facility] 09-13-2023 13:30-0500 Body mass index (BMI) [Ratio] 33.22 kg/m2 Jeremy Magallanes Other [employer] [facility] [employer] Other 09-13-2023 13:30-0500 Body temperature 98.4 [degF] Jeremy Magallanes Other [employer] [facility] [employer] Other 09-13-2023 13:30-0500 Body weight 102.06 kg Jeremy Magallanes Other [employer] [facility] [employer] Other 09-13-2023 13:30-0500 Body weight 102.05 kg [facility] 09-13-2023 13:30-0500 Diastolic blood pressure 80 mm[Hg] Jeremy Magallanes Other [facility] 09-13-2023 13:30-0500 SaO2% (BldA) [Mass fraction] 93 % Jeremy Magallanes Other [facility] [employer] Other 09-13-2023 13:30-0500 Systolic blood pressure 118 mm[Hg] Jeremy Magallanes Other [facility] 08-13-2023 10:30-0500 Body height 175.26 cm Jeremy Magallanes Other [employer] Other 08-13-2023 10:30-0500 Body mass index (BMI) [Ratio] 33.9 kg/m2 Jeremy Magallanes Other [employer] Other 08-13-2023 10:30-0500 Body weight 104.15 kg Jeremy Magallanes Other [employer] Other 08-13-2023 10:30-0500 Diastolic blood pressure 78 mm[Hg] Jeremy Magallanes Other [employer] Other 08-13-2023 10:30-0500 Systolic blood pressure 124 mm[Hg] Jeremy Magallanes Other [employer] Other 06-25-2023 08:45-0500 Body height 175.26 cm Jeremy Magallanes Other [employer] Other 06-25-2023 08:45-0500 Body mass index (BMI) [Ratio] 33.37 kg/m2 Jeremy Magallanes Other [employer] Other 06-25-2023 08:45-0500 Body temperature 96.5 [degF] Jeremy Magallanes Other [employer] Other 06-25-2023 08:45-0500 Body weight 102.51 kg Jeremy Magallanes Other [employer] Other 06-25-2023 08:45-0500 Diastolic blood pressure 85 mm[Hg] Jeremy Magallanes Other [employer] Other 06-25-2023 08:45-0500 Systolic blood pressure 149 mm[Hg] Jeremy Magallanes Other [employer] Other 05-28-2023 10:45-0400 Body height 175.26 cm Jeremy Magallanes Other [employer] Other 05-28-2023 10:45-0400 Body mass index (BMI) [Ratio] 33.52 kg/m2 Jeremy Magallanes Other [employer] Other 05-28-2023 10:45-0400 Body weight 102.97 kg Jeremy Magallanes Other [employer] Other 05-28-2023 10:45-0400 Diastolic blood pressure 82 mm[Hg] Jeremy Magallanes Other [employer] Other 05-28-2023 10:45-0400 Systolic blood pressure 147 mm[Hg] Jeremy Magallanes Other [employer] Other 2023 08:45-0400 Body height 175.26 cm Jeremy Magallanes Other [employer] Other 2023 08:45-0400 Body mass index (BMI) [Ratio] 33.52 kg/m2 Jeremy Magallanes Other [employer] Other 2023 08:45-0400 Body weight 102.97 kg Jeremy Magallanes Other [employer] Other 2023 08:45-0400 Diastolic blood pressure 85 mm[Hg] Jeremy Magallanes Other [employer] Other 2023 08:45-0400 Systolic blood pressure 156 mm[Hg] Jeremy Magallanes Other [employer] Other 04-30-2023 09:45-0400 Body height 175.26 cm Jeremy Magallanes Other [employer] Other 04-30-2023 09:45-0400 Body mass index (BMI) [Ratio] 34.32 kg/m2 Jeremy Magallanes Other [employer] Other 04-30-2023 09:45-0400 Body temperature 96.2 [degF] Jeremy Magallanes Other [employer] Other 04-30-2023 09:45-0400 Body weight 105.42 kg Jeremy Magallanes Other [employer] Other 04-30-2023 09:45-0400 Diastolic blood pressure 78 mm[Hg] Jeremy Magallanes Other [employer] Other 04-30-2023 09:45-0400 Respiratory rate 16 /min Jeremy Magallanes Other [employer] Other 04-30-2023 09:45-0400 Systolic blood pressure 146 mm[Hg] Jeremy Magallanes Other [employer] Other 02-20-2023 09:15-0400 Body height 175.26 cm Jeremy Magallanes Other [employer] Other 02-20-2023 09:15-0400 Body mass index (BMI) [Ratio] 33.46 kg/m2 Jeremy Magallanes Other [employer] Other 02-20-2023 09:15-0400 Body weight 102.79 kg Jeremy Magallanes Other [employer] Other 02-20-2023 09:15-0400 Diastolic blood pressure 77 mm[Hg] Jeremy Magallanes Other [employer] Other 02-20-2023 09:15-0400 Systolic blood pressure 131 mm[Hg] Jeremy Magallanes Other [employer] Other 01-17-2023 08:45-0400 Body height 175.26 cm Jeremy Magallanes Other [employer] Other 01-17-2023 08:45-0400 Body mass index (BMI) [Ratio] 33.37 kg/m2 Jeremy Magallanes Other [employer] Other 01-17-2023 08:45-0400 Body weight 102.51 kg Jeremy Magallanes Other [employer] Other 01-17-2023 08:45-0400 Diastolic blood pressure 79 mm[Hg] Jeremy Magallanes Other [employer] Other 01-17-2023 08:45-0400 Systolic blood pressure 128 mm[Hg] Jeremy Magallanes Other [employer] Other 11-23-2022 09:30-0400 Body height 175.26 cm Jeremy Magallanes Other [employer] Other 11-23-2022 09:30-0400 Body mass index (BMI) [Ratio] 33.96 kg/m2 Jeremy Magallanes Other [employer] Other 11-23-2022 09:30-0400 Body weight 104.33 kg Jeremy Magallanes Other [employer] Other 11-23-2022 09:30-0400 Diastolic blood pressure 72 mm[Hg] Jeremy Magallanes Other [employer] Other 11-23-2022 09:30-0400 Systolic blood pressure 122 mm[Hg] Jeremy Magallanes Other [employer] Other 09-04-2022 11:30-0500 Body height 175.26 cm Jeremy Magallanes Other [employer] Other 09-04-2022 11:30-0500 Body mass index (BMI) [Ratio] 33.52 kg/m2 Jeremy Magallanes Other [employer] Other 09-04-2022 11:30-0500 Body weight 102.97 kg Jeremy Magallanes Other [employer] Other 09-04-2022 11:30-0500 Diastolic blood pressure 80 mm[Hg] Jeremy Magallanes Other [employer] Other 09-04-2022 11:30-0500 SaO2% (BldA) [Mass fraction] 95 % Jeremy Magallanes Other [employer] Other 09-04-2022 11:30-0500 Systolic blood pressure 122 mm[Hg] Jeremy Magallanes Other [employer] Other 02-06-2022 12:45-0400 Body height 175.26 cm Kesha Olexa Other [employer] Other 02-06-2022 12:45-0400 Body mass index (BMI) [Ratio] 31.01 kg/m2 Kesha Olexa Other [employer] Other 02-06-2022 12:45-0400 Body weight 95.26 kg Kesha Olexa Other [employer] Other 05-26-2021 13:15-0400 Body height 175.26 cm Harriet Ginty Other [employer] Other 05-26-2021 13:15-0400 Body mass index (BMI) [Ratio] 31.01 kg/m2 Harriet Ginty Other [employer] Other 05-26-2021 13:15-0400 Body temperature 98.3 [degF] Harriet Ginty Other [employer] Other 05-26-2021 13:15-0400 Body weight 95.26 kg Harriet Ginty Other [employer] Other 05-26-2021 13:15-0400 SaO2% (BldA) [Mass fraction] 96 % Harriet Elizabethnty Other [employer] Other Encounters Encounter Date Encounter Type Care Provider Facility Start: 05-27-2024 End: 05-27-2024 Office outpatient new 30 minutes [facility] MAKAYLA-FREELANCE PROGRAMMER/APP DEVELOPER Work Phone: [facility] Comment on above: Dysphagia, unspecifi ed type (Primary Dx); Black stools; Gastroesophageal reflux disease, unspecified whether esophagitis present; Abnormal esophagram Start: 05-27-2024 End: 05-27-2024 ambulatory [facility] Start: 05-18-2024 End: 05-18-2024 ambulatory Zacarias Pike MD Facility: [place] Start: 05-14-2024 End: 05-21-2024 Telephone encounter Eleanor Meraz MD Work Phone: General Surgery Comment on above: New Patient; Care Co ordinator - Other Start: 04-07-2024 End: 04-07-2024 ambulatory MALATHI RAMIRESMIS Not Available Start: 04-06-2024 End: 04-06-2024 ambulatory Zacarias Pike MD Facility: [place] Start: 03-18-2024 End: 03-18-2024 ambulatory [facility] Work Phone: Start: 03-18-2024 End: 03-18-2024 Patient encounter procedure [facility] Work Phone: Start: 03-16-2024 End: 03-16-2024 ambulatory Andrius Antoinetteautas Ricardoitis Facility: [facility] Start: 03-03-2024 End: 03-03-2024 ambulatory [facility] Work Phone: Start: 03-03-2024 End: 03-03-2024 Patient encounter procedure [facility] Work Phone: Start: 02-27-2024 Non-patient / Non-visit [facility] Work Phone: Start: 02-24-2024 End: 02-24-2024 ambulatory Andrius Vytautas Gieshaitis Facility: [facility] Start: 02-03-2024 End: 02-03-2024 ambulatory Andrius Vytautas Ricardoitis Facility: [facility] Start: 01-20-2024 End: 01-20-2024 ambulatory Andrius Vytautas Giedraitis [facility] Start: 12-17-2023 End: 12-17-2023 ambulatory [facility] Work Phone: Start: 12-17-2023 End: 12-17-2023 Patient encounter procedure [facility] Work Phone: Start: 12-05-2023 End: 12-05-2023 ambulatory [facility] Work Phone: Start: 12-05-2023 End: 12-05-2023 Patient encounter procedure [facility] Work Phone: Start: 10-23-2023 Non-patient / Non-visit [facility] Work Phone: Start: 10-08-2023 Non-patient / Non-visit [facility] Work Phone: Start: 10-07-2023 End: 10-07-2023 ambulatory BARBIE Ko POCOS Not Available Start: 09-18-2023 End: 09-18-2023 ambulatory Jeremy Magallanes Other [employer] Other Start: 09-18-2023 Telephone encounter Jeremy Magallanes [facility] Start: 09-13-2023 End: 09-13-2023 ambulatory Jeremy Magallanes Other [employer] Other Start: 09-13-2023 Office outpatient vi sit 15 minutes Jeremy Magallanes [facility] Start: 09-13-2023 End: 09-13-2023 Patient encounter procedure [facility]- Start: 09-11-2023 Telephone encounter Argentina coleman [...] back reinier.) Start: 09-10-2023 End: 09-10-2023 ambulatory Jeremy Magallanes Other [facility] Other Start: 09-10-2023 Telephone encounter Jeremy Magallanes [facility] Start: 09-06-2023 End: 09-06-2023 ambulatory Jeremy Magallanes Other [facility] Other Start: 09-06-2023 Telephone encounter Jeremy Magallanes [facility] Start: 09-02-2023 End: 09-02-2023 ambulatory HI POCOS Not Available Start: 08-20-2023 End: 08-20-2023 ambulatory Jeremy Magallanes Other [facility] Other Start: 08-20-2023 Telephone encounter Jeremy Magallanes [facility] Start: 08-13-2023 End: 08-13-2023 ambulatory Jeremy Magallanes Other [facility] Other Start: 08-13-2023 Office outpatient vi sit 25 minutes Jeremy Magallanes [facility] Start: 08-13-2023 Telephone encounter Jeremy Magallanes [facility] Start: 08-06-2023 End: 08-06-2023 ambulatory Jeremy Magallanes Other [facility] Other Start: 08-06-2023 Telephone encounter Jeremy Magallanes [facility] Start: 07-29-2023 End: 07-29-2023 ambulatory HI POCOS Not Available Start: 07-22-2023 End: 07-22-2023 ambulatory Jeremy Magallanes Other [facility] Other Start: 07-22-2023 Telephone encounter Jeremy Magallanes [facility] Start: 07-19-2023 End: 07-19-2023 ambulatory Jeremy Magallanes Other [facility] Other Start: 07-19-2023 Telephone encounter Jeremy Magallanes [facility] Start: 07-18-2023 End: 07-18-2023 ambulatory Jeremy Magallanes Other [facility] Other Start: 07-18-2023 Telephone encounter Jeremy Magallanes [facility] Start: 07-02-2023 End: 07-02-2023 ambulatory Jeremy Magallanes Other [facility] Other Start: 07-02-2023 Office outpatient vi sit 15 minutes Jeremy Magallanes [facility] Start: 07-02-2023 Telephone encounter Jeremy Magallanes [facility] Start: 06-25-2023 End: 06-25-2023 ambulatory Jeremy Magallanes Other [facility] Other Start: 06-25-2023 Office outpatient vi sit 15 minutes Jeremy Magallanes [facility] Start: 06-21-2023 End: 06-21-2023 ambulatory Jeremy Magallanes Other [facility] Other Start: 06-21-2023 Encounter by edmond owen Jeremy Magallanes [facility] Start: 06-20-2023 End: 06-20-2023 ambulatory Jeremy Magallanes Other [facility] Other Start: 06-20-2023 Telephone encounter Jeremy Magallanes [facility] Start: 06-17-2023 End: 06-17-2023 ambulatory Jeremy Magallanes Other [facility] Other Start: 06-17-2023 Telephone encounter Jeremy Magallanes [facility] Start: 06-10-2023 End: 06-10-2023 ambulatory Jeremy Magallanes Other [facility] Other Start: 06-10-2023 Telephone encounter Jeremy Magallanes [facility] Start: 06-03-2023 End: 06-03-2023 ambulatory Jeremy Magallanes Other [facility] Other Start: 06-03-2023 Telephone encounter Jeremy Magallanes [facility] Start: 05-30-2023 End: 05-31-2023 ambulatory [place]os Facility[place] Start: 05-30-2023 End: 05-30-2023 Patient encounter procedure Hi Pocos [facility] Start: 05-28-2023 End: 05-28-2023 ambulatory Jeremy Magallanes Other [facility] Other Start: 05-28-2023 Office outpatient vi sit 15 minutes Jeremy Magallanes [facility] Start: 2023 End: 2023 ambulatory Jeremy Magallanes Other [facility] Other Start: 2023 Office outpatient vi sit 15 minutes Jeremy Magallanes [facility] Start: 05-16-2023 End: 05-16-2023 ambulatory Jeremy Magallanes Other [facility] Other Start: 05-16-2023 Telephone encounter Jeremy Sona [facility] Start: 04-30-2023 End: 04-30-2023 ambulatory Jeremy Magallanes Other [facility] Other Start: 04-30-2023 Office outpatient vi sit 15 minutes Jeremy Sona [facility] Start: 04-26-2023 End: 04-26-2023 ambulatory Jeremy Sona Other [facility] Other Start: 04-26-2023 Telephone encounter Jeremy Sona [facility] Start: 04-23-2023 End: 04-23-2023 ambulatory Jeremy Magallanes Other [facility] Other Start: 04-23-2023 Telephone encounter Jeremy Sona [facility] Start: 03-25-2023 End: 03-25-2023 ambulatory Jeremy Magallanes Other [facility] Other Start: 03-25-2023 Telephone encounter Jeremy Sona [facility] Start: 03-06-2023 End: 03-06-2023 ambulatory Jeremy Magallanes Other [facility] Other Start: 03-06-2023 Telephone encounter Jeremy Sona [facility] Start: 02-20-2023 End: 02-20-2023 ambulatory Jeremy Sona Other [facility] Other Start: 02-20-2023 Office outpatient vi sit 25 minutes Jeremy Sona [facility] Start: 02-05-2023 End: 02-05-2023 ambulatory Jeremy Sona Other [facility] Other Start: 02-05-2023 Telephone encounter Jeremy Sona [facility] Start: 01-21-2023 End: 01-21-2023 ambulatory Jeremy Sona Other [facility] Other Start: 01-21-2023 Telephone encounter Jeremyyeyo Magallanes [facility] [employer] Start: 01-17-2023 End: 01-17-2023 ambulatory Jeremy Sona Other [facility] Other Start: 01-17-2023 Office outpatient vi sit 15 minutes Jeremy Sona [facility] Start: 12-24-2022 End: 12-24-2022 ambulatory Jeremy Sona Other [facility] Other Start: 12-24-2022 Telephone encounter Jeremy Sona [facility] Start: 12-03-2022 End: 12-03-2022 ambulatory Jeremy Sona Other [facility] Other Start: 12-03-2022 Telephone encounter Jeremy Sona [facility] Start: 11-27-2022 End: 11-27-2022 ambulatory Jeremy Sona Other [facility] Other Start: 11-27-2022 Telephone encounter Jeremy Sona [facility] Start: 11-26-2022 End: 11-26-2022 ambulatory Jeermy Magallanes Other [facility] Other Start: 11-26-2022 Telephone encounter Jeremy Magallanes [facility] Start: 11-24-2022 End: 11-25-[address] JEREMY MAGALLANES Facility:[facility] Start: 11-23-2022 End: 11-23-2022 ambulatory Jeremy Magallanes Other [facility] Other Start: 11-23-2022 Office outpatient vi sit 15 minutes Jeremy Magallanes [facility] Start: 11-05-2022 End: 11-05-2022 ambulatory Jeremy Magallanes Other [facility] Other Start: 11-05-2022 Telephone encounter Jeremy Magallanes [facility] Start: 10-03-2022 End: 10-03-2022 ambulatory Jeremy Magallanes Other [facility] Other Start: 10-03-2022 Telephone encounter Jeremy Magallanes [facility] Start: 09-04-2022 End: 09-04-2022 ambulatory Jeremy Magallanes Other [facility] Other Start: 09-04-2022 Office outpatient vi sit 25 minutes Jeremy Magallanes [facility] Start: 07-26-[address] JEREMY MAGALLANES Facil ity:[facility] Start: 07-19-2022 End: 07-20-[address] WILFREDO ENGLE Facility:[facility] Start: 06-07-2022 End: 06-07-[address] JEREMY MAGALLANES Facility:[facility] Start: 03-15-2022 ambulatory KESHA TRUJILLO Facility:[facility] Start: 02-06-2022 End: 02-06-2022 ambulatory Kesha Trujillo Other [facility] Other Start: 02-06-2022 Office outpatient vi sit 25 minutes Kesha Trujillo [facility] Start: 02-02-2022 End: 02-03-2022 ambulatory KESHA TRUJILLO Facility:[facility] Start: 12-28-2021 End: 12-28-[address] JEREMY MAGALLANES Facility:[facility] Start: 12-12-2021 End: 12-13-[address] [facility] Other Start: 12-12-2021 Office outpatient ne w 30 minutes Kesha Trujillo [facility] Start: 05-26-2021 Office outpatient vi sit 15 minutes Harriet Elizabethkizzycristiano [facility] Procedures Date Procedure Procedure Detail Performing Clinician Start: 12-18-2018 Laboratory test resu lt abnormal Jeremy Sona Other Start: 05-12-2018 Removal of suture Milagro a Sona Other Start: 01-08-2017 Screening for malign ant neoplasm of prostate Jeremy Sona Other Screening for malign ant neoplasm of colon Jeremy Sona Other Screening for malign ant neoplasm of prostate Jeremy Sona Other Plan of Treatment Date Care Activity Detail Author Start: 06-28-2026 DTaP,Tdap and Td Vaccines (3 - Td or Tdap) DTaP,Tdap and Td Vaccines (3 - Td or Tdap) [facility] Start: 05-27-2025 Adult BMI Screening Adult BMI Screening [facility] Start: 05-27-2025 Tobacco Screening Tobacco Screening [facility] Start: 04-19-2024 Influenza vaccination Influenza Vaccine [facility] Start: 03-18-2024 Patient referral [facility] Work Phone: Start: 10-07-2023 End: 10-07-2023 Patient encounter procedure 10/07/2023 8:00 AM EST Office Visit [facility] [address] [facility] [place] [id number] Barbie Tapia DO [address] [place] [address] [facility] Start: 2010 Administration of varicella zoster vaccine Zoster (Shingles) Vaccine (1 of 2) [facility] Start: 1978 Adult BMI Follow Up Plan Adult BMI Follow Up Plan [facility] Start: 1972 Depression Screening Depression Screening [facility] Start: 1960 Tobacco Counseling Tobacco Counseling [facility] CT Chest WO contrast [facility] End: 05-27-2025 Esophagogastroduodenoscopy EGD GI Routine Dysphagia, unspecified type Black stools 1 Occurrences starting 05/27/2024 until 05/27/2025 [facility] Work Phone: Comment on above: 1 Occurrences starting 05/27/2024 until 05/27/2025 Patient referral [facility] Work Phone: XR Pelvis and Hip - bilateral Views [facility] Immunizations Immunization Date Immunization Notes Care Provider Leon escalrea 06-02-2018 Influenza, injectabl e, Madin Kyleigh Canine Kidney, preservative free, quadrivalent Argentina Clinton PT Work Phone: [facility] 06-02-2018 influenza virus vaccine, unspecified formulation Priyanka Kamari GRAIN MERCHANDISING MANAGER-FREELANCE PROGRAMMER/APP DEVELOPER Work Phone: [facility] 05-17-2017 influenza virus vaccine, split virus (incl. purified surface antigen) Jeremy Magallanes Other [facility] Other 05-17-2017 influenza virus vaccine, unspecified formulation [facility] 05-16-2017 influenza, injectabl e, quadrivalent, preservative free Argentina Clinton PT Work Phone: [facility] 06-28-2016 influenza, injectabl e, quadrivalent, preservative free Argentina Clinton PT Work Phone: [facility] 06-28-2016 tetanus and diphther ia toxoids, adsorbed, preservative free, for adult use (5 Lf of tetanus toxoid and 2 Lf of diphtheria toxoid) Jeremy Magallanes Other [facility] 05-25-2015 influenza, seasonal, injectable, preservative free Argentina Clinton PT Work Phone: [facility] 05-25-2015 tetanus and diphther ia toxoids, adsorbed, preservative free, for adult use (5 Lf of tetanus toxoid and 2 Lf of diphtheria toxoid) Jeremy Magallanes Other [facility] 06-15-1999 pneumococcal conjuga te vaccine, 7 valent Argentina Clinton PT Work Phone: [facility] Payers Date Payer Category Payer Medicaid [id number] 2013 Medicare [id number] 1960 Unknown [id number] 2.16.84 0.1.500800.3.579.2.593 1960 Unknown [id number] 2.16.84 0.1.677965.3.579.2.593 1960 Unknown [id number] 2.16.84 0.1.682800.3.579.2.593 1960 Unknown [id number] 2.16.84 0.1.669431.3.579.2.593 1960 Unknown [id number] 2.16.84 0.1.340545.3.579.2.593 1960 Unknown [id number] 2.16.84 0.1.497532.3.579.2.593 1960 Unknown [id number] 2.16.84 0.1.313548.3.579.2.593 1960 Unknown [id number] 2.16.84 0.1.963406.3.579.2.593 1960 Unknown [id number] 2.16.8 40.1.841440.3.579.2.727 1960 Unknown [id number] 2.16.84 0.1.355005.3.579.2.1259 1960 Unknown [id number] 2.16.84 0.1.351554.3.579.2.1259 1960 Unknown [id number] 2.16.84 0.1.597119.3.579.2.1259 1960 Unknown [id number] 2.16.84 0.1.449661.3.579.2.1259 1960 Unknown [id number] 2.16.840 .1.148470.3.579.2.1259 1960 Unknown [id number] 2.16. 840.1.268664.3.579.2.196 1960 Unknown [id number] 2.16. 840.1.325511.3.579.2.196 1960 Unknown [id number] 2.16. 840.1.543786.3.579.2.196 1960 Unknown [id number] 2.16. 840.1.649675.3.579.2.196 1960 Unknown [id number] 2.16. 840.1.030593.3.579.2.196 1960 Unknown [id number] 2.16. 840.1.041356.3.579.2.196 1960 Unknown [id number] 2.16.8 40.1.453738.3.579.2.1286 1959 Medicaid [id number] 2. 16.840.1.151047.19 1959 Medicare [id number] 2.1 [id number] Self-pay Self Pay [id number] Social History Date Type Detail Facility Start: 09-29-2020 End: 09-02-2023 Sex Assigned At [facility] Tobacco smoking status No Smokin g Status Entered [facility] Start: 06-03-2019 End: 03-27-2023 Tobacco smoking status NCIS Smokes tobacco daily [facility] Work Phone: History of tobacco use Cigarette Smoker [facility] Start: 09-29-2020 End: 03-27-2023 Cigarettes smoked current (pack per day) - Reported 0.5 [facility] Start: 06-03-2019 End: 03-27-2023 Tobacco use and exposure Smokeless tobacco non-user [facility] Start: 09-02-2023 End: 05-27-2024 Alcohol intake Lifetime non-drinker (finding) [facility] Start: 03-27-2023 Alcohol Comment Caffine- Soda [facility] Start: 1960 Sex Assigned At Male [facility] Start: 08-21-2023 Gender identity Identifies as male gender (finding) [facility] Start: 08-21-2023 Sexual orientation Heterosexual (finding) [facility] Start: 02-06-2017 Tobacco smoking status NCIS Ex-smoker (finding) [facility] Tobacco smoking stat [facility] Tobacco smoking consumption unknown [facility] Start: 1960 Sex assigned at Not on file [facility] Frequency of [facility] Equipment Procedure Code Equipment Code Equipment Original Text Equi pment Identifier Dates Accu-Chek FastClix Lancet - Clinical Notes 05-26-2021 to 05-27-2024 Priyanka Vaz APRN-FREELANCE PROGRAMMER/APP DEVELOPER - 05/27/2024 2:30 PM EDTTelephone Encounter - Vivian Morley - 05/15/2024 11:35 AM EDTTelephone Encounter - Vivian Morley - 05/15/2024 11:35 AM EDT Note Date & Type Note Facility 05-27-2024 History of Presen t illness Narrative Images from the original note were not included. Chief Complaint: Dysphagia History of Present Illness Nicholas Craig is a 64 y.o. male who presents to the office for dysphagia. Symptoms have been ongoing for the past 6-12 months but are progressively getting worse. He has trouble daily swallowing liquids and solids. He feels like foods sit in his sternum. He will then bring up phlegm. Associated symptoms include nausea, vomiting, heartburn and epigastric pain. He also has black stools. Sister Annalisa in room today states patient eats a poor diet. He recently saw ENT for which he had an abnormal fluoroscopy esophagus, results below. He had a gallbladder ultrasound last year that showed gallbladder polyp. He saw Dr. Martinez in [place] for this. He also reports a positive Cologuard last year. He has not followed up on this with colonoscopy and he does not wish to. Review of Systems Constitutional: Negative for fever and unexpected weight change. HENT: Positive for trouble swallowing. Respiratory: Negative for shortness of breath. Cardiovascular: Negative for chest pain. Gastrointestinal: Positive for nausea, vomiting, abdominal pain and black tarry stool. Negative for diarrhea, constipation and blood in stool. GERD Genitourinary: Negative for dysuria and difficulty urinating. Musculoskeletal: Negative for gait problem. Skin: Negative for rash and wound. Neurological: Negative for dizziness, weakness and light-headedness. Hematological: Does not bruise/bleed easily. Psychiatric/Behavioral: Negative for confusion. Past Medical History: Diagnosis Date Cancer ([facility]) Chronic back pain COPD (chronic obstructive pulmonary disease) ([facility]) Dental disease full dentures Diabetes mellitus ([facility]) Shortness of breath Skin cancer MELANOMA & HAS HAD HX OF BASIL & SQUAMOUS Past Surgical History: Procedure Laterality Date BACK SURGERY CARPAL TUNNEL RELEASE left COLONOSCOPY OVER 20 YRS AGO EPIDURAL BLOCK INJECTION last one 03/2019 SHOULDER SURGERY Right 2022 ROTATOR CUFF, [place] Allergies Allergen Reactions Ibuprofen Hives and Rash hives Iodinated Contrast Media Hives and Rash hives Current Outpatient Medications: acetaminophen-codeine (TYLENOL #3) 300-30 mg per tablet, Take 2 tablets by mouth every 4 (four) hours as needed., Disp: , Rfl: acetaminophen-codeine (TYLENOL with CODEINE #4) 300-60 mg per tablet, Take 1-2 tablets by mouth in the morning and 1-2 tablets before bedtime., Disp: , Rfl: albuterol (PROVENTIL HFA;VENTOLIN HFA) 90 mcg/actuation inhaler, Inhale 2 puffs every 6 (six) hours as needed for wheezing. Pt states he only uses this twice a year, has not used in the last 3months, Disp: , Rfl: glipiZIDE-metFORMIN (METAGLIP) 5-500 mg per tablet, Take 1 tablet by mouth 2 (two) times daily at 0800 and 1200., Disp: , Rfl: ondansetron ODT (ZOFRAN ODT) 4 mg disintegrating tablet, Dissolve 1 tablet (4 mg total) on tongue once., Disp: , Rfl: omeprazole (PriLOSEC) 40 mg capsule, Take 1 capsule (40 mg total) by mouth in the morning., Disp: 60 capsule, Rfl: 0 Social History Socioeconomic History Marital status: Spouse name: Not on file Number of children: Not on file Years of education: Not on file Highest education level: Not on file Occupational History Not on file Tobacco Use Smoking status: Every Day Smokeless tobacco: Never Vaping Use Vaping status: Never Used Substance and Sexual Activity Alcohol use: Never Drug use: Never Sexual activity: Defer Other Topics Concern Not on file Social History Narrative Not on file Social Determinants of Health Financial Resource Strain: Not on file Food Insecurity: Not on file Transportation Needs: Not on file Physical Activity: Not on file Stress: Not on file Social Connections: Not on file Interpersonal Safety: Not on file Housing Instability: Not on file Family History Problem Relation Age of Onset Cancer Mother Lung cancer Mother Cancer Father Liver cancer Father Cancer Maternal Aunt Colon cancer Maternal Grandmother Cancer Maternal Grandmother Objective Physical Exam Constitutional: General: He is not in acute distress. Appearance: Normal appearance. He is not ill-appearing. HENT: Head: Normocephalic and atraumatic. Mouth/Throat: Mouth: Mucous membranes are moist. Eyes: Pupils: Pupils are equal, round, and reactive to light. Cardiovascular: Rate and Rhythm: Normal rate. Pulmonary: Effort: Pulmonary effort is normal. No respiratory distress. Abdominal: General: There is no distension. Palpations: Abdomen is soft. Tenderness: There is abdominal tenderness in the right upper quadrant and epigastric area. There is no guarding. Musculoskeletal: General: Normal range of motion. Skin: General: Skin is warm and dry. Neurological: Mental Status: He is alert and oriented to person, place, and time. Mental status is at baseline. Vital Signs: Height 175.3 cm (5' 9 ), weight 104.3 kg (230 lb). Respiratory Source: No data recorded Admission Weight: Weight: 104.3 kg (230 lb) Labs No results found for: WBC , HGB , HCT , MCV , PLT No results found for: GLU , CALCIUM , NA , K , CO2 , CL , BUN , CREATININE No results found for: AMYLASE No results found for: LIPASE No results found for: ALT , AST , GGT , ALKPHOS , LABBILI Imaging Fluoroscopy esophagus 04/08/2024: FINDINGS: ORAL PHASE: Normal deglutition. PHARYNGEAL PHASE: Normal swallowing. ASPIRATION: None. STRUCTURE: Marked narrowing versus incomplete opening of the gastroesophageal valve, 4 mm in maximum diameter during the study. Swallowed oral contrast accumulates within the esophagus with intermittent slight opening of the gastroesophageal valve allowing passage. Tertiary waves develop within the distal esophagus. Patient swallowed a 12 mm diameter barium tablet which would not pass through the gastroesophageal valve. Tablet eventually dissolved and passed into the stomach. OTHER: Negative. FL/FL barium swallow IMPRESSION: 1. Marked narrowing/incomplete opening of gastroesophageal valve. No mucosal irregularity to suggest a mass, but direct visualization is recommended. 2. Development of tertiary waves within the esophagus after fluid has accumulated and sat in the distal esophagus. Assessment Dysphagia Black stools Abnormal esophagram Plan Start PPI. Schedule EGD. Patient declines colonoscopy, he understands there is no way to rule out colon cancer without it. Evaluation included: Preparing to see the patient (e.g., review of tests) Obtaining and/or reviewing separately obtained history Performing a medically appropriate examination and/or evaluation Counseling and educating the patient/family/caregiver Referring and communicating with other health manager intensive care unit Dysphagia, unspecified type [R13.10] CHARLEE BIGGS [facility] General Surgery [place] This note was created with the assistance of a speech recognition program. While intending to generate a timely document that accurately reflects the content of the visit, no guarantee can be provided that every grammatical or spelling mistake has been or will be identified or corrected. Thank you for your understanding. CHARLEE Biggs 05/27/24 155 documented in this encounter [facility] 05-15-2024 Telephone encounter Note Images from the original note were not included. Consult from Dr. Jeremy Magallanes (Internal Medicine) [facility] Referral received from PCP for [...] completed: 04/08/2024 Barium Swallow 03/21/2024 CT Chest [facility] 05-15-2024 Miscellaneous Notes Images from the original note were not included. Consult from Dr. Jeremy Magallanes (Internal Medicine) [facility] Referral received from PCP for [...] completed: 04/08/2024 Barium Swallow 03/21/2024 CT Chest Images from the original note were not included. Referral was sent from [facility] for new consult with Dr Meraz Please see below and advise documented in this encounter [facility] 05-14-2024 Telephone encounter Note Images from the original note were not included. Referral was sent from [facility] for new consult with Dr Meraz Please see below and advise [facility] 10-02-2023 Telephone encounter Note No attempts to hear back; closing referral. [facility] 10-02-2023 Miscellaneous Notes No attempts to hear back; closing referral. documented in this encounter [facility] 09-13-2023 Evaluation note Encounter Date Diagnosis Assessment Notes Aug, Chronic obstructive pulmonary disease, unspecified (ICD-10 - J44.9) Finish antibiotics and prednisone as prescribed. Denies pulmonary referral at this time. Hasn't smoked since 09/08 and declines chantix or patches. Aug, Current smoker (ICD-10 - F17.200) [facility] 01-23-2024 Evaluation note* Encounter Date Diagnosis Assessment Notes Treatment Notes Treatment Clinical Notes Aug, Lumbar radicular pain (ICD-10 - M54.16) [facility] 01-19-2024 Evaluation note* Encounter Date Diagnosis Assessment Notes Treatment Notes Treatment Clinical Notes Aug, Lumbar radicular pain (ICD-10 - M54.16) [facility] 12-26-2023 Evaluation note* Encounter Date Diagnosis Assessment Notes Treatment Notes Treatment Clinical Notes Jul, Type 2 diabetes mellitus with hyperglycemia, without long-term current use of insulin (ICD-10 - E11.65) [facility] Other 12-26-2023 Evaluation note* Encounter Date Diagnosis [...] T3s after shoulder pain has improved post-operatively. [facility] Other 12-04-2023 Evaluation note* Encounter Date Diagnosis Assessment Notes Treatment Notes Treatment Clinical Notes Jul, Type 2 diabetes mellitus with hyperglycemia, without long-term current use of insulin (ICD-10 - E11.65) [facility] Other 12-01-2023 Evaluation note* Encounter Date Diagnosis Assessment Notes Treatment Notes Treatment Clinical Notes Jul, Type 2 diabetes mellitus with hyperglycemia, without long-term current use of insulin (ICD-10 - E11.65) [facility] Other 11-30-2023 Evaluation note* Encounter Date Diagnosis Assessment Notes Treatment Notes Treatment Clinical Notes Jun, Labral tear of shoulder, right, subsequent encounter (ICD-10 - S43.431D) [facility] Other 11-14-2023 Evaluation note* Encounter Date Diagnosis [...] pain (ICD-10 - R07.9) r/o cardiac cause [facility] Other 11-07-2023 Evaluation note* Encounter Date Diagnosis [...] to decrease dose and possibly discontinue medication. [facility] Other 11-02-2023 Evaluation note* Encounter Date Diagnosis Assessment Notes Treatment Notes Treatment Clinical Notes Jun, Acute pain of right shoulder (ICD-10 - M25.511) [facility] Other 10-30-2023 Evaluation note* Encounter Date Diagnosis Assessment Notes Treatment Notes Treatment Clinical Notes May, Acute pain of right shoulder (ICD-10 - M25.511) [facility] Other 10-23-2023 Evaluation note* Encounter Date Diagnosis Assessment Notes Treatment Notes Treatment Clinical Notes May, Acute pain of right shoulder (ICD-10 - M25.511) [facility] Other 10-16-2023 Evaluation note* Encounter Date Diagnosis Assessment Notes Treatment Notes Treatment Clinical Notes May, Acute pain of right shoulder (ICD-10 - M25.511) [facility] Other 10-10-2023 Evaluation note* Encounter Date Diagnosis Assessment Notes Treatment Notes Treatment Clinical Notes May, Acute pain of right shoulder (ICD-10 - M25.511) MRI and surgery planning pending. Pt understands this is a controlled substance and to call in 1 week w update on treatment plan. May, Bronchitis (ICD-10 - J40) Finish antibiotic, rest, hydrate Steroids for wheezing. [facility] Other 10-04-2023 Evaluation note* Encounter Date Diagnosis Assessment Notes Treatment Notes Treatment Clinical Notes May, Acute pain of right shoulder (ICD-10 - M25.511) Reviewed [place] and discussed short term plan of increase in pain medication. He is due for a refill of the T3s presently. Stop them, replace w norco. Pt understands weekly prescription and will need to d/c after anticipated surgery. [facility] Other 09-12-2023 Evaluation note* Encounter Date Diagnosis [...] office and the ER visit on 04/26 [facility] Other 07-05-2023 Evaluation note* Encounter Date Diagnosis [...] and will need less prn pain med. [facility] Other 06-01-2023 Evaluation note* Encounter Date Diagnosis [...] left shoulder (ICD-10 - M25.512) as above. [facility] Other 04-17-2023 Evaluation note* Encounter Date Diagnosis Assessment Notes Treatment Notes Treatment Clinical Notes Nov, Bronchitis (ICD-10 - J40) [facility] Other 04-11-2023 Evaluation note* Encounter Date Diagnosis Assessment Notes Treatment Notes Treatment Clinical Notes Nov, Disc degeneration, lumbar (ICD-10 - M51.36) Nov, Lumbar radicular pain (ICD-10 - M54.16) [facility] Other 04-07-2023 Evaluation note* Encounter Date Diagnosis [...] quit smoking. Pt verbalizes understanding and agreement. [facility] Other 02-15-2023 Evaluation note* Encounter Date Diagnosis Assessment Notes Treatment Notes Treatment Clinical Notes Sep, Lumbar radicular pain (ICD-10 - M54.16) [facility] Other 01-17-2023 Evaluation note* Encounter Date Diagnosis [...] is outlined on the test result page. [facility] Other 10-20-2022 NoteIndication: Calculus in kidney. Comparison: [...] Electronically authenticated by: JOHN PINTO Date: 2022-06-07 20:07[facility]06-21-[facility] Evaluation note* Encounter Date Diagnosis Assessment [...] of infection, hardware pullout, cuff repair failure, fdc pain and stiffness are well known problems [...] of repair, infection and wound healing delays. [facility] Other 04-26-2022 NotePROCEDURE: XR SHOULDER LT 2V or > COMPARISON: None. HISTORY: Pain of left shoulder joint FINDINGS: BONES:No acute fracture or dislocation. 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 No visible soft tissue swelling. EFFUSION:None visible. OTHER: Negative. IMPRESSION: Mild osteoarthritis Electronically authenticated by: BARBIE MEMBRENO Date: 2021-12-12 15:[address] [place], [place] [address]4-26-2022 Evaluation note* Encounter Date Diagnosis Assessment Notes [...] pain of left shoulder (ICD-10 - M25.512) [facility] Other 10-08-2021 Evaluation note* Encounter Date Diagnosis [...] as needed for cough. Advised patient that Ferguson contains antihistamine and cough suppressant and to be cautious using other OTC cold medications. Patient to follow up with PCP if symptoms do not improve. Immediate eval if SOB, difficulty breathing, chest pain, dizziness, or other concerning symptoms. Patient verbalizes understanding and is agreeable to treatment plan [facility] Other Evaluation + Plan note No data available for this section [facility] noteNo InformationNortWellSpan [facility] [employer] Other Evaluation note* Diagnosis Onset Date Resolution Status Arthralgia acute Lumbar pain acute Type II diabetes mellitus ac rincon [facility] Work Phone: Evaluation note* Diagnosis Onset Date Resolution Status Arthralgia acute Lumbar pain acute Type II diabetes mellitus ac rincon Bilateral hip pain acute [facility] Work Phone: Evaluation note* Diagnosis Onset Date Resolution Status Arthralgia acute Lumbar pain acute Type II diabetes mellitus ac rincon Bilateral hip pain acute Lumbar pain acute [facility] Work Phone: Evaluation note* Diagnosis Onset Date Resolution Status Submandibular abscess acute Chronic obstructive pulmonary disease, unspecified acute Esophageal abnormality acute Mass of left submandibular region acute [facility] Work Phone: Evaluation note* Diagnosis Dysphagia, unspecified type- Primary Black stools Nonspecific abnormal finding in stool contents Gastroesophageal reflux disease, unspecified whether esophagitis present Abnormal esophagram documented in this encounter [facility] [employer] SystemHistory general Narrative - Reported* Type Description Date Medical History Asthma Medical History skin cancer-lip Surgical History Left lung biopsy 1977 Surgical History L4 and L5 disc fusion 1984 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 [employer] Other Hospital Discharge instructions No data available for this section [facility] instructionsAmbulatory Orders* Referral to ENT Time Frame: 03/18/24, Location: None Selected [facility] Work Phone: InstructionsNot on filedocumented in this encounter [facility] [employer] SystemProgress note No data available for this section [facility] Summary Purpose Family History Relationship Condition [...] 1 Epigastric abdominal pain (R10.13) Referral Organization [facility] [employer] Referring Provider First Name Jeremy Referring Provider Last Name Sona Referring Provider Specialty [facility] [employer] Referred Organization [facility] Referred Provider Sai Martinez Referred Address ,[place], [place],[address] Referred Provider Specialty Surgery Referral Priority Routine General Notes Es Camilo 11:38:02 AM >received today, attachments made, notes locked, referral faxed Reason 01/28/23 Access Or tho - B shoulder pain L>R - hopes for injections. Diagnosis 1 Pain in right should er (M25.511) Referral Organization [facility] [employer] Referring Provider First Name Jeremy Referring Provider Last Name Sona Referring Provider [facility] [employer] Referred Organization [facility] Referred Provider Barbie Tapia Referred Address ,[place], [place],[address] Referred Provider Specialty Orthopaedic Surgery Referral Priority [...] in right should er (M25.511) Referral Organization [facility] [employer] Referring Provider First Name Jeremy Referring Provider Last Name Sona Referring Provider Specialty Family [facility] Referred Organization [facility] Referred Provider Barbie Tapia Referred Address ,[place], [place],[address] Referred Provider Specialty Orthopaedic Surgery Referral Priority [...] had to lm. Requested call back reinier. 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 Difficulty Swallowing Nausea Vomiting Abdominal Pain RUQ PAIN (unrecognized sect ion and content) No Status Records FoundNo Status Records FoundNo Status Records FoundNo Status Records FoundNo Status Records FoundNo Status Records FoundNo Status Records Found INFORMATION SOURCE (unrecogn ized section and content) DATE CREATED AUTHOR 02/10/2022 [facility] DATE CREATED AUTHOR AUTHOR'S ORGANIZ ATION 12/04/2022 [facility] DATE CREATED AUTHOR AUTHOR'S ORGANIZ ATION 06/01/2023 [facility] DATE CREATED AUTHOR AUTHOR'S ORGANIZ ATION 04/08/2024 [facility] dical [facility] DATE CREATED AUTHOR AUTHOR'S ORGANIZ ATION 2024 [facility] DATE CREATED AUTHOR AUTHOR'S ORGANIZ ATION 05/23/2024 [facility] DATE CREATED AUTHOR AUTHOR'S ORGANIZ ATION 05/29/2024 [facility] Patient Care team informatio n (unrecognized section and content) Team Status: Active Member Role Status Dates Jeremy Magallanes MD Primary Care Provider Active Team Status: Active Member Role Status Dates Jeremy Magallanes MD Primary Care Provider Active Start: February 27, 2024 Arnoldo Somers MD Attending Provider Active St art: February 27, 2024 Team Status: Inactive Member Role Status Dates Jeremy Magallanes MD Primary Care Provide r, Attending Provider Active Start: March 03, 2024 End: March 03, 2024 Team Status: Inactive Member Role Status Dates Jeremy Magallanes MD Primary Care Provide r, Attending Provider Active Start: March 18, 2024 End: March 18, 2024 Team Status: Inactive Member Role Status Dates Jeremy Magallanes MD Primary Care Provide r, Attending Provider Active Start: December 05, 2023 End: December 05, 2023 Team Status: Inactive Member Role Status Dates Jeremy Magallanes MD Primary Care Provide r, Attending Provider Active Start: December 17, 2023 End: December 17, 2023 Team Status: Active Member Role Status Dates Jeremy Magallanes MD Primary Care Provider Active Start: October 08, 2023 STEPHANY Davies Attending Provider Active Start : October 08, 2023 Team Status: Active Member Role Status Dates Jeremy Magallanes MD Primary Care Provider Active Start: October 23, 2023 STEPHANY Davies Attending Provider Active Start : October 23, 2023 Geophysical Observer Relationship Specialty Start Date End Date Jeremy Magallanes MD [address] [place] [address] PCP - General Family Medicine 01/23/23 Team Status: Inactive Member Role Status Dates Jeremy Magallanes MD Attending Provider Active St art: September 13, 2023 End: September 13, 2023 Geophysical Observer Relationship Specialty Start Date End Date Jeremy Magallanes MD [address] [place] [address] Referring Family Medicine 05/12/24 Geophysical Observer Relationship Specialty Start Date End Date Jeremy Magallanes MD [address] [place] [address] PCP - General Family Medicine 06/03/19 Goals (unrecognized section and content) Goals may be documented in a n alternate section Source Comments (unrecognize d section and content) In the event this informatio n is protected by the Federal Confidentiality of Alcohol and Drug Abuse Patient Records regulations: The Federal rules restrict any use of the information to criminally investigate or prosecute any alcohol or drug abuse patient.[facility] FOR RECORDS PERTAINING TO PATIENTS WHO ARE [...] BE BASED ON THE PRIMARY CLINICAL RECORDS. [facility]. provides no warranty or guarantee of the accuracy or completeness of information in this document.
== END 2024-06-01 12:33 | disposition home or self-care (01) ==
LOC: PST 12:32
PROVIDERS: PCP Family Medicine; Visit Provider Surgery
DX: Z01.818 Encounter for other preprocedural examination (principal); R19.5 Other fecal abnormalities; R13.10 Dysphagia, unspecified

== ENCOUNTER 2024-06-03 09:02 | Day surgery (SDC) | payer MEDICARE, SELFPAY ==
[2024-06-03 09:10] VITALS: BP 149/90; PULSE 66; TEMP 36.5; O2SAT 98; BMI 31.0
--- OUTSIDE RECORDS SUMMARY | 2024-06-03 09:15 | XMS_ITS | CCD ---
Author Organization [facility]iniSy[facility] Care Team Providers Care Director Of Vital Statistics Name Role Phone Ronnie Kesha Unavailable Chepe Harriet Unavailable Jeremy Magallanes Unavailable SONA, DR JEREMY Jovel Admitting Unavailable MAGALLANES, DR JEREMY Jovel Attending Unavailable MAGALLANES, DR JEREMY Jovel Primary Care Unavailable MAGALLANES, DR JEREMY Jovel Consulting Unavailable TAVERASRUBI Consulting Unavailable OLEXA, KESHA Admitting Unavailable OLEXA, KESHA Attending Unavailable MAGALLANES, DR JEREMY Jovel Primary Care Unavailable [place], DR BARBIE Goldberg Consulting Unavailable OLEXA, KESHA [...] KESHA Admitting Unavailable OLEXA, KESHA Attending Unavailable MGAALLANES, DR JEREMY Jovel Primary Care Unavailable MAGALLANES, [...] Consulting Unavailable JEREMY MAGALLANES Primary Care Physician [phone] Barbie Tapia Referring Unavailable Pocdoron, Barbie Ko Attending Unavailable Pocdoron, Barbie Ko Admitting Unavailable Jeremy Magallanes MD Primary Care Provider POCDORON, BARBIE Ko Attending Unavailable POCOS, BARBIE [...] Ruth Attending Unavailable Jeremy Magallanes MD Unavailable [phone] PRIYANKA VAZ Attending Unavailable JEREMY MAGALLANES Referring Unavailable JEREMY MAGALLANES Primary Care Unavailable Jeremy Magallanes MD Primary Care Provider Allergies Allergy Classification Reported Allergen(s) Allergy Type Date of Onset Reaction(s) Facility (20 sources) Ibuprofen Drug Allergy [facility] [place] Other (20 sources) olodaterol / tiotropium Drug Allergy shortness of breath [facility] [place] Other (20 sources) CT Scan dye Propensity to adverse reactions [facility] Other (7 sources) Ibuprofen; Translations: [IBUPROFEN] Drug Allergy 08-19-18 80 [facility] Repository (2 sources) Iodine (And Iodine Containting Drugs) Drug allergy (disorder) 09-07-19 16 [facility] Repository (1 source) NSAIDs Drug allergy (disorder) [facility] (20 sources) fentaNYL Drug Allergy 12-05-19 24 Unknown, [facility] (5 sources) Ibuprofen Drug Allergy 01-15-20 15 Rash, [facility] (20 sources) Ofloxacin Drug Allergy 12-05-19 24 Unknown, [facility] (3 sources) zafirlukast Drug Allergy 01-15-20 15 Unknown [facility] [place] Other (20 sources) Zafirlukast *ANTIASTHMATIC AND BRONCHODILATOR AGEN Propensity to adverse reactions Unknown [facility] Other (20 sources) Ibuprofen & Diet Manage Prod *ANALGESICS - ANTI-IN Propensity to adverse reactions Unknown [facility] Other (3 sources) Allergies Reconciled Propensity to adverse reactions Unknown [facility] Other (20 sources) Iodinated contrast media (substance) Drug allergy 06-03-20 Rash, Hives [facility] [place] Other (3 sources) patient allergy list reviewed by nurse or physicia Propensity to adverse reactions 10-05-19 Comment:Done [facility] Other (4 sources) olodaterol Drug Allergy 12-05-19 shortness of breath [facility] (4 sources) tiotropium Drug Allergy 12-05-19 shortness of breath [facility] (5 sources) Iodinated Contrast Media; Translations: [IODINATED CONTRAST MEDIA] Allergy to substance 06-03-20 [facility] (4 sources) Ibuprofen & Diet Manage Prod * Allergy to substance 12-04-19 [facility] (4 sources) Zafirlukast *ANTIASTHMATIC AND Allergy to substance 12-04-19 [facility] Medications Current Medications Medication Drug Class(es) Dates [...] Sep, Active take 2 tablets by mo [facility] every four hours as needed acetaminophen-codeine (TYLENOL [...] as needed Orally every 6 hrs Active [id number] actuat albuterol 0.09 mg/actuat metered dose [...] ) Start: 07-19-2023 take 2 tablets by [facility] in the morning glipiZIDE-metFORMIN (Metaglip) 5-500 MG [...] Active Start: 11-23-2022 take 2 tablets by [facility] every twenty-four hours predniSONE 20 MG 2 [...] days May, Active Start: 2023 HYDROcodone-ac etaminophen (Jewett) 10-325 MG tablet Start: 2023 take 1 [...] 30 mg oral tablet (5 sources) Uncompetitive P-hdjsfs-Y-aspartate Receptor Antagonist, Sigma-1 Agonist Start: 05-26-2021 take 1 tablet by mouth every eight hours Lotus DMT 30-30 MG 1 tablet Orally every [...] Start: 02-20-2023 take 1 capsule by mo [facility] every twenty-four hours Cymbalta 60 MG 1 [...] Other [facility] (current) drug therapy; Translations: [OTH LONG-TERM CURRENT DRUG THERAPY] Onset: 12-29-2021 Episodic Other [...] Reference Range Facility [facility] 05-14-2024 ANGELA Telephone ([id number]) NICHOLAS CRAIG ([id number]) 1960 M Date Time Provider Department 05/14/24 MERAZ, HALLEKobi [id number] During your visit today, we recorded the following information about you: Keily Martines 05/14/2024 1:11 PM Signed Referral was sent from [facility] for new consult with Dr Meraz Please see below and advise Vivian Morley 05/15/2024 11:54 AM Addendum Consult from Dr. 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 Basophils Auto (Bld) [#/Vol] on 02-27-2024 Basophils (Bld) [#/Vol] 0.1 10 3/uL 0.0-0.1 [facility] Basophils/100 WBC Auto (Bld) on 02-27-2024 Basophils/100 WBC (Bld) 0.5 % 0.2-2.0 [facility] Eosinophils/100 WBC Auto (Bl d)on 02-27-2024 Eosinophils/100 WBC (Bld) 2.5 % 0.9-7.0 [facility] Erythrocyte distribution wid th Auto (RBC) [Ratio]on 02-27-2024 Erythrocyte distribution width (RBC) [Ratio] 13.5 % 11.0-15.0 [facility] Estimated glomerular filtrat ion rate (GFR) non- Americanon 02-27-2024 GFR/1.73 sq M.predicted among non-blacks MDRD (S/P/Bld) [Vol rate/Area] mL/min/{1.73_m2} >=60 [facility] Hematocrit Auto (Bld) [Volum e fraction]on 02-27-2024 Hematocrit (Bld) [Volume fraction] 47.1 % 42.0-54.0 [facility] Hemoglobin [Mass/volume] in Bloodon 02-27-2024 Hemoglobin (Bld) [Mass/Vol] 15.5 g/dL 14.0-18.0 [facility] Laboratory - Chemistry and C hemistry - challengeon 02-27-2024 Calcium [Mass/Vol] 8.9 mg/dL 8.5-10.1 [facility] Chloride [Moles/Vol] 98 mmol/L 98-107 [facility] CO2 [Moles/Vol] 28.1 mmol/L 21.0-32.0 [facility] Creatinine [Mass/Vol] 0.86 mg/dL 0.70-1.30 [facility] GFR/1.73 sq M.predicted MDRD (S/P/Bld) [Vol rate/Area] mL/min/{1.73_m2} >=60 [facility] Glucose [Mass/Vol] 237 mg/dL High 74-106 [facility] Lactate [Moles/Vol] 1.3 mmol/L 0.4-2.0 [facility] Potassium [Moles/Vol] 4.4 mmol/L 3.5-5.1 [facility] Sodium [Moles/Vol] 130 mmol/L Low 136-145 [facility] Urea nitrogen [Mass/Vol] 21.0 mg/dL High 7.0-18.0 [facility] Urea nitrogen/Creatinine [Mass ratio] 24.4 mg/mg [facility] Laboratory - Hematology and Cell countson 02-27-2024 Immature granulocytes/100 WBC (Bld) 0.3 % 0.0-0.5 [facility] Leukocytes [#/volume] correc jean claude for nucleated erythrocytes in Blood by Automated counon 02-27-2024 WBC corrected for nucl RBC Auto (Bld) [#/Vol] 9.3 10 3/uL 4.0-11.0 [facility] Lymphocytes Auto (Bld) [#/Vo l]on 02-27-2024 Lymphocytes (Bld) [#/Vol] 2.4 10 3/uL 1.2-3.8 [facility] Lymphocytes/100 WBC Auto (Bl d)on 02-27-2024 Lymphocytes/100 WBC (Bld) 25.5 % 20.5-60.0 [facility] MCH Auto (RBC) [Entitic mass ]on 02-27-2024 MCH (RBC) [Entitic mass] 29.1 pg 25.9-34.0 [facility] MCHC Auto (RBC) [Mass/Vol]on 02-27-2024 MCHC (RBC) [Mass/Vol] 32.9 g/dL 29.9-35.2 [facility] MCV Auto (RBC) [Entitic vol] on 02-27-2024 MCV (RBC) [Entitic vol] 88.5 fL 80.0-94.0 [facility] Monocytes Auto (Bld) [#/Vol] on 02-27-2024 Monocytes (Bld) [#/Vol] 1.1 10 3/uL High 0.3-0.8 [facility] Monocytes/100 WBC Auto (Bld) on 02-27-2024 Monocytes/100 WBC (Bld) 12.0 % 1.7-12.0 [facility] Neutrophils Auto (Bld) [#/Vo l]on 02-27-2024 Neutrophils (Bld) [#/Vol] 5.5 10 3/uL 1.4-6.5 [facility] Neutrophils/100 WBC Auto (Bl d)on 02-27-2024 Neutrophils/100 WBC (Bld) 59.2 % 43.0-75.0 [facility] No Panel Informationon 02-26 Eosinophils # (Auto) 0.2 10 3/uL 0.0-0.7 [facility] Immature Granulocyte # (Auto) 0.03 10 3/uL 0.00-0.03 [facility] Platelet mean volume Auto (B ld) [Entitic vol]on 02-27-2024 Platelet mean volume (Bld) [Entitic vol] 8.8 fL Low 9.5-13.5 [facility] Platelets Auto (Bld) [#/Vol] on 02-27-2024 Platelets (Bld) [#/Vol] 288 10 3/uL 150-450 [facility] RBC Auto (Bld) [#/Vol]on RBC (Bld) [#/Vol] 5.32 10 6/uL 4.70-6.10 [facility] Serum or plasma anion gap de terminationon 02-27-2024 Anion gap [Moles/Vol] 8.3 mmol/L [facility] Basophils Auto (Bld) [#/Vol] on 12-05-2023 Basophils (Bld) [#/Vol] 0.1 10 3/uL 0.0-0.1 [facility] Basophils/100 WBC Auto (Bld) on 12-05-2023 Basophils/100 WBC (Bld) 0.9 % 0.2-2.0 [facility] Eosinophils/100 WBC Auto (Bl d)on 12-05-2023 Eosinophils/100 WBC (Bld) 2.7 % 0.9-7.0 [facility] Erythrocyte distribution wid th Auto (RBC) [Ratio]on 12-05-2023 Erythrocyte distribution width (RBC) [Ratio] 13.1 % 11.0-15.0 [facility] Estimated glomerular filtrat ion rate (GFR) non- Americanon 12-05-2023 GFR/1.73 sq M.predicted among non-blacks MDRD (S/P/Bld) [Vol rate/Area] mL/min/{1.73_m2} >=60 [facility] Glucose mean value [Mass/vol ume] in Blood Estimated from glycated hemoglobinon 12-05-2023 Average glucose Estimated from glycated hemoglobin (Bld) [Mass/Vol] 171 mg/dL [facility] Hematocrit Auto (Bld) [Volum e fraction]on 12-05-2023 Hematocrit (Bld) [Volume fraction] 48.9 % 42.0-54.0 [facility] Hemoglobin [Mass/volume] in Bloodon 12-05-2023 Hemoglobin (Bld) [Mass/Vol] 16.0 g/dL 14.0-18.0 [facility] Laboratory - Chemistry and C hemistry - challengeon 12-05-2023 Calcium [Mass/Vol] 9.7 mg/dL 8.5-10.1 [facility] Chloride [Moles/Vol] 102 mmol/L 98-107 [facility] CO2 [Moles/Vol] 27.6 mmol/L 21.0-32.0 [facility] Creatinine [Mass/Vol] 1.01 mg/dL 0.70-1.30 [facility] GFR/1.73 sq M.predicted MDRD (S/P/Bld) [Vol rate/Area] mL/min/{1.73_m2} >=60 [facility] Glucose [Mass/Vol] 156 mg/dL High 74-106 [facility] Potassium [Moles/Vol] 4.4 mmol/L 3.5-5.1 [facility] Sodium [Moles/Vol] 139 mmol/L 136-145 [facility] Urea nitrogen [Mass/Vol] 13.0 mg/dL 7.0-18.0 [facility] Urea nitrogen/Creatinine [Mass ratio] 12.9 mg/mg [facility] Laboratory - Hematology and Cell countson 12-05-2023 ESR (Bld) [Velocity] 17 mm/h <=20 [facility] HbA1c (Bld) [Mass fraction] 7.6 % High 4.5-6.2 [facility] Comment on above: ADA RECOMMENDED LIMI T 4.0 - 6.0ADA THERAPEUTIC TARGET < 7.0ACTION SUGGESTED> 7.0 Immature granulocytes/100 WBC (Bld) 0.4 % 0.0-0.5 [facility] Leukocytes [#/volume] correc jean claude for nucleated erythrocytes in Blood by Automated counon 12-05-2023 WBC corrected for nucl RBC Auto (Bld) [#/Vol] 7.7 10 3/uL 4.0-11.0 [facility] Lymphocytes Auto (Bld) [#/Vo l]on 12-05-2023 Lymphocytes (Bld) [#/Vol] 2.4 10 3/uL 1.2-3.8 [facility] Lymphocytes/100 WBC Auto (Bl d)on 12-05-2023 Lymphocytes/100 WBC (Bld) 31.2 % 20.5-60.0 [facility] MCH Auto (RBC) [Entitic mass ]on 12-05-2023 MCH (RBC) [Entitic mass] 28.5 pg 25.9-34.0 [facility] MCHC Auto (RBC) [Mass/Vol]on 12-05-2023 MCHC (RBC) [Mass/Vol] 32.7 g/dL 29.9-35.2 [facility] MCV Auto (RBC) [Entitic vol] on 12-05-2023 MCV (RBC) [Entitic vol] 87.0 fL 80.0-94.0 [facility] Monocytes Auto (Bld) [#/Vol] on 12-05-2023 Monocytes (Bld) [#/Vol] 0.7 10 3/uL 0.3-0.8 [facility] Monocytes/100 WBC Auto (Bld) on 12-05-2023 Monocytes/100 WBC (Bld) 9.5 % 1.7-12.0 [facility] Neutrophils Auto (Bld) [#/Vo l]on 12-05-2023 Neutrophils (Bld) [#/Vol] 4.2 10 3/uL 1.4-6.5 [facility] Neutrophils/100 WBC Auto (Bl d)on 12-05-2023 Neutrophils/100 WBC (Bld) 55.3 % 43.0-75.0 [facility] No Panel Informationon 12-04 Eosinophils # (Auto) 0.2 10 3/uL 0.0-0.7 [facility] Immature Granulocyte # (Auto) 0.03 10 3/uL 0.00-0.03 [facility] Platelet mean volume Auto (B ld) [Entitic vol]on 12-05-2023 Platelet mean volume (Bld) [Entitic vol] 8.6 fL Low 9.5-13.5 [facility] Platelets Auto (Bld) [#/Vol] on 12-05-2023 Platelets (Bld) [#/Vol] 330 10 3/uL 150-450 [facility] RBC Auto (Bld) [#/Vol]on RBC (Bld) [#/Vol] 5.62 10 6/uL 4.70-6.10 [facility] Serum or plasma anion gap de terminationon 12-05-2023 Anion gap [Moles/Vol] 13.8 mmol/L [facility] Magnesiumon 07-02-2023 Magnesium [Mass/Vol] 2.4251786 mg/dL Normal 1.8-2.4 mg/dL [facility] Other Magnesium see note [facility] Other MRI Shoulder w/o Contrast [facility] 05-31-2023 MRI Shoulder w/o Contrast Right Exam Date/Time: 05/30/2023 14:25 EDT Reason for Exam: [id number] Report IMPRESSION: Full-thickness rotator cuff tearing involving [...] TAMARA Technologist: STELLA Technical Comments None Normal [facility] Consent for Treatmenton 05-19 Consent for Treatment [id number] .00TIFF Normal [facility] RAD - MRI Screening Formon 1 RAD - MRI Screening Form [id number]#1. 00TIFF Normal [facility] Physician Orderon 05-09-2023 Physician Order [id number]# 1.00CD:127 Normal [facility] XR CHEST 2 Von 11-24-2022 XR [...] by: RUBI TAVERAS Date: 2022-11-24 17:17 Normal [facility] CT LUNG CANCER SCREENINGon 1 09-20-2021 [...] YEISON NAVAS Date: 2022-07-20 07:18 Normal [facility] CBC AUTO DIFFon 06-07-2022 BASO # 0.1 103/ul Normal 0.0-0.1 [facility] Comment on above: Performed By: #### C BC #### [facility] [address] [place] [address] Dr. Eran Chacon Basophils/100 WBC (Bld) 0.6 % Normal 0.2-2.0 [facility] Comment on above: Performed By: #### C BC #### [facility] [address] [place] [address] Dr. Eran Chacon EO # 0.3 103/ul Normal 0.0-0.7 [facility] Comment on above: Performed By: #### C BC #### [facility] [address] [place] [address] Dr. Eran Chacon Eosinophils/100 WBC (Bld) 3.3 % Normal 0.9-7.0 [facility] Comment on above: Performed By: #### C BC #### [facility] [address] [place] [address] Dr. Eran Chacon Erythrocyte distribution width (RBC) [Ratio] 12.9 % Normal 11.0-15.0 [facility] Comment on above: Performed By: #### C BC #### [facility] [address] [place] [address] Dr. Eran Chacon Hematocrit (Bld) [Volume fraction] 47.7 % Normal 42.0-54.0 [facility] Comment on above: Performed By: #### C BC #### [facility] [address] [place] [address] Dr. Eran Chacon Hemoglobin (Bld) [Mass/Vol] 15.9 g/dL Normal 14.0-18.0 [facility] Comment on above: Performed By: #### C BC #### [facility] [address] [place] [address] Dr. Eran Chacon IG # 0.02 10e3/ul Normal 0.00-0.03 [facility] Comment on above: Performed By: #### C BC #### [facility] [address] [place] [address] Dr. Eran Chacon IG % 0.2 % Normal 0.0-0.5 [facility] Comment on above: Performed By: #### C BC #### [facility] [address] [place] [address] Dr. rEan Chacon LYMPH # 3.4 103/ul Normal 1.2-3.8 [facility] Comment on above: Performed By: #### C BC #### [facility] [address] [place] [address] Dr. Eran Chacon Lymphocytes/100 WBC (Bld) 34.5 % Normal 20.5-60.0 [facility] Comment on above: Performed By: #### C BC #### [facility] [address] [place] [address] Dr. Eran Chacon MANUAL DIFF REQ NO Normal [facility] Comment on above: Performed By: #### C BC #### [facility] [address] [place] [address] Dr. Eran Chacon MCH (RBC) [Entitic mass] 29.6 pg Normal 25.9-34.0 [facility] Comment on above: Performed By: #### C BC #### [facility] [address] [place] [address] Dr. Eran Chacon MCHC (RBC) [Mass/Vol] 33.3 g/dL Normal 29.9-35.2 [facility] Comment on above: Performed By: #### C BC #### [facility] [address] [address] [address] Eran Chacon MCV (RBC) [Entitic vol] 88.8 fL Normal 80.0-94.0 [facility] Comment on above: Performed By: #### C BC #### [facility] [address] [address] [address] Eran Chacon MONO # 0.9 103/ul Critically high 0.3-0.8 [facility] Comment on above: Performed By: #### C BC #### [facility] [address] [address] [address] Eran Chacon Monocytes/100 WBC (Bld) 9.3 % Normal 1.7-12.0 [facility] Comment on above: Performed By: #### C BC #### [facility] [address] [address] [address] Eran Chacon NEUT # 5.2 103/ul Normal 1.4-6.5 [facility] Comment on above: Performed By: #### C BC #### [facility] [address] [place] [address] Dr. Eran Chacon Neutrophils/100 WBC (Bld) 52.1 % Normal 43.0-75.0 [facility] Comment on above: Performed By: #### C BC #### [facility] [address] [address] [address] Eran Chacon Platelet mean volume (Bld) [Entitic vol] 8.8 fL Critically low 9.5-13.5 [facility] Comment on above: Performed By: #### C BC #### [facility] [address] [place] [address] Dr. Eran Chacon PLT 287 103/ul Normal 150-450 [facility] Comment on above: Performed By: #### C BC #### [facility] [address] [address] [address] Eran Chacon RBC 5.37 106/ul Normal 4.70-6.10 [facility] Comment on above: Performed By: #### C BC #### [facility] [address] [place] [address] Dr. Eran Chacon WBC 9.9 103/ul Normal 4.0-11.0 [facility] Comment on above: Performed By: #### C BC #### [facility] [address] [place] [address] Dr. Eran Chacon ER URINE PROFILEon 2 Bilirubin Ql (U) Negative Normal NEGATIVE [facility] Comment on above: Performed By: #### Med PIERRER, UMICRO #### [facility] [address] [place] [address] Dr. Eran Chacon Clarity (U) CLEAR Normal CLEAR [facility] Comment on above: Performed By: #### Med SHER, UMICRO #### [facility] [address] [place] [address] Dr. Eran Chacon Color (U) YELLOW Normal YELLOW [facility] Comment on above: Performed By: #### Med SHER UMICRO #### [facility] [address] [place] [address] Dr. Eran GATES A micrscopic examination will be performed if indicated. Normal [facility] Comment on above: Performed By: #### Med SHER UMICRO #### [facility] [address] [place] [address] Dr. Eran Chacon Glucose Ql (U) 500 mg/dl Abnormal NEGATIVE [facility] Comment on above: Performed By: #### Med SHER, UMICRO #### [facility] [address] [place] [address] Dr. Eran Chacon Hemoglobin Ql (U) TRACE-INTACT Abnormal NEGATIVE [facility] Comment on above: Performed By: #### Med SHER, UMICRO #### [facility] [address] [place] [address] Dr. Eran Chacon Ketones Ql (U) Negative Normal NEGATIVE [facility] Comment on above: Performed By: #### E RUR, UMICRO #### [facility] [address] [place] [address] Dr. Eran Chacon LEUKOCYTES Negative Normal NEGATIVE [facility] Comment on above: Performed By: #### HANNA BATES #### [facility] [address] [place] [address] Dr. Eran Chacon Nitrite Ql (U) Negative Normal NEGATIVE [facility] Comment on above: Performed By: #### HANNA BATES #### [facility] [address] [place] [address] Dr. Eran Chacon pH (U) 6.0 [pH] Normal 5-9 [facility] Comment on above: Performed By: #### HANNA BATES #### [facility] [address] [place] [address] Dr. Eran Chacon SPEC GRAVITY 1.025 Normal 1.005-<=1.025 [facility] Comment on above: Performed By: #### HANNA BATES #### [facility] [address] [place] [address] Dr. Eran Chacon UA PROTEIN Negative Normal NEGATIVE/ TRACE [facility] Comment on above: Performed By: #### HANNA BATES #### [facility] [address] [place] [address] Dr. Eran Chacon UR MICRO IND INDICATED Normal [facility] Comment on above: Performed By: #### HANNA BATES #### [facility] [address] [place] [address] Dr. Eran Chacon Urobilinogen Qn (U) 0.2 {Aureliano'U}/dL Normal 0.2 - 1. 0 [facility] Comment on above: Performed By: #### HANNA BATES #### [facility] [address] [place] [address] Dr. Eran Chacon PROF 14(COMP METB)on 022 Albumin [Mass/Vol] 4.0 g/dL Normal 3.4-5.0 [facility] Comment on above: Performed By: #### C MP #### [facility] [address] [place] [address] Dr. Eran Chacon Albumin/Globulin [Mass ratio] 1.2 {ratio} Normal [facility] Comment on above: Performed By: #### C MP #### [facility] [address] [place] [address] Dr. Eran Chacon ALP [Catalytic activity/Vol] 104 U/L Normal 46-116 [facility] Comment on above: Performed By: #### C MP #### [facility] [address] [place] [address] Dr. Eran Chacon ALT [Catalytic activity/Vol] 28 U/L Normal 16-63 [facility] Comment on above: Performed By: #### C MP #### [facility] [address] [place] [address] Dr. Eran Chacon Anion gap [Moles/Vol] 7.2 mmol/L Normal [facility] Comment on above: Performed By: #### C MP #### [facility] [address] [place] [address] Dr. Eran Chacon AST [Catalytic activity/Vol] 14 U/L Critically low 15-37 [facility] Comment on above: Performed By: #### C MP #### [facility] [address] [place] [address] Dr. Eran Chacon Bilirubin [Mass/Vol] 0.4 mg/dL Normal 0.2-1.0 [facility] Comment on above: Performed By: #### C MP #### [facility] [address] [place] [address] Dr. Eran Chacon Calcium [Mass/Vol] 9.0 mg/dL Normal 8.5-10.1 [facility] Comment on above: Performed By: #### C MP #### [facility] [address] [place] [address] Dr. Eran Chacon Chloride [Moles/Vol] 103 mmol/L Normal 98-107 [facility] Comment on above: Performed By: #### C MP #### [facility] [address] [place] [address] Dr. Eran Chacon CO2 [Moles/Vol] 30.0 mmol/L Normal 21.0-32.0 [facility] Comment on above: Performed By: #### C MP #### [facility] [address] [place] [address] Dr. Eran Chacon Creatinine [Mass/Vol] 0.85 mg/dL Normal 0.70-1.30 [facility] Comment on above: Performed By: #### C MP #### [facility] [address] [address] [address] Eran Chacon EGFR-AF TUNISIAN >60 Normal >=60 [facility] Comment on above: Performed By: #### C MP #### [facility] [address] [place] [address] Dr. Eran Chacon EGFR-NON AF TUNISIAN >60 Normal >=60 [facility] Comment on above: Performed By: #### C MP #### [facility] [address] [place] [address] Dr. Eran Chacon Globulin (S) [Mass/Vol] 3.3 g/dL Normal [facility] Comment on above: Performed By: #### C MP #### [facility] [address] [place] [address] Dr. Eran Chacon Glucose [Mass/Vol] 165 mg/dL Critically high 74-106 [facility] Comment on above: Performed By: #### C MP #### [facility] [address] [place] [address] Dr. Eran Chacon Potassium [Moles/Vol] 4.2 mmol/L Normal 3.5-5.1 [facility] Comment on above: Performed By: #### C MP #### [facility] [address] [place] [address] Dr. Eran Chacon Protein [Mass/Vol] 7.3 g/dL Normal 6.4-8.2 [facility] Comment on above: Performed By: #### C MP #### [facility] [address] [place] [address] Dr. Eran Chacon Sodium [Moles/Vol] 136 mmol/L Normal 136-145 [facility] Comment on above: Performed By: #### C MP #### [facility] [address] [place] [address] Dr. Eran Chacon Urea nitrogen [Mass/Vol] 10.0 mg/dL Normal 7.0-18.0 [facility] Comment on above: Performed By: #### C MP #### [facility] [address] [place] [address] Dr. Eran Chacon Urea nitrogen/Creatinine [Mass ratio] 11.8 mg/mg Normal [facility] Comment on above: Performed By: #### C MP #### [facility] [address] [place] [address] Dr. Eran Chacon URINE MICROSCOPIC ONLYon BACTERIA NONE SEEN Normal NONE SEEN [facility] Comment on above: Performed By: #### Med SHER UMICRO #### [facility] [address] [place] [address] Dr. Eran Chacon Bacteria identified Cx Nom (U) NOT INDICATED Normal [facility] Comment on above: Performed By: #### Med SHER UMICRO #### [facility] [address] [place] [address] Dr. Eran Chacon CAST NONE SEEN Normal NONE SEEN [facility] Comment on above: Performed By: #### Med SEHR UMICRO #### [facility] [address] [place] [address] Dr. Eran Chacon Crystals LM Nom (Urine sed) NONE SEEN Normal NONE SEEN [facility] Comment on above: Performed By: #### Med SHER UMICRO #### [facility] [address] [place] [address] Dr. Eran Chacon Epithelial cells LM Ql (Urine sed) RARE Normal NONE SEEN /RARE [facility] Comment on above: Performed By: #### Med SHER UMICRO #### [facility] [address] [place] [address] Dr. Eran Chacon MUCOUS NONE SEEN Normal NONE SEEN [facility] Comment on above: Performed By: #### Med SHER UMICRO #### [facility] [address] [place] [address] Dr. Eran Chacon RBC 0-2 Normal 0-2 [facility] Comment on above: Performed By: #### Med HANNA SHER #### [facility] [address] [address] [address] Eran Chacon WBC 2-5 Abnormal NONE SEEN [facility] Comment on above: Performed By: #### HANNA BATES #### [facility] [address] [address] [address] Eran Chacon MRI SHOULDER LT WO [...] YEISON NAVAS Date: 2022-02-02 17:09 Normal [facility] XR shoulder LT min 2V*on XR shoulder LT min 2V* [facility] [place] [address] [place] [id number] XRay Report Signed Patient: Nicholas Craig MR#: [id number] : [id number] Acct:[id number] Age/Sex: 61 / M ADM Date: 01/25/22 Loc: [facility] Room: Type: [facility] Attending Dr: Kesha Trujillo MD Ordering [...] Otilia Nunez M.D.01/25/2022 11:41 AM Dictation Location: [place] [address] Transcribed By: [facility] 01/25/22 1141 Dictated By: Otilia Nunez MD 01/25/22 1139 Signed By: 01/25/22 1141 Normal [facility] Vital Signs Date Time Vital Sign Value Performing Clinician Facility 05-27-2024 14:56-0400 Body height 175.3 cm Priyanka DESHPANDE Work Phone: [facility] 05-27-2024 14:56-0400 Body mass index (BMI) [Ratio] 33.97 kg/m2 Priyanka DESHPANDE Work Phone: [facility] 05-27-2024 14:56-0400 Body weight 104.33 kg Priyanka Vaz DOOR MANAGER-RADIOLOGIC TECH Work Phone: [facility] 03-18-2024 08:46-0400 Body height 175.26 cm [facility] 03-18-2024 08:46-0400 Body mass index (BMI) [Ratio] 34.4 kg/m2 [facility] 03-18-2024 08:46-0400 Body weight 105.68 kg [facility] 03-18-2024 08:46-0400 Diastolic blood pressure 80 mm[Hg] [facility] 03-18-2024 08:46-0400 Heart rate 72 /min [facility] 03-18-2024 08:46-0400 Systolic blood pressure 130 mm[Hg] [facility] 03-03-2024 11:54-0400 Body height 175.26 cm [facility] 03-03-2024 11:54-0400 Body mass index (BMI) [Ratio] 34.7 kg/m2 [facility] 03-03-2024 11:54-0400 Body weight 106.59 kg [facility] 03-03-2024 11:54-0400 Diastolic blood pressure 81 mm[Hg] [facility] 03-03-2024 11:54-0400 Heart rate 69 /min [facility] 03-03-2024 11:54-0400 Systolic blood pressure 129 mm[Hg] [facility] 12-17-2023 08:54-0400 Body height 175.26 cm [facility] 12-17-2023 08:54-0400 Body mass index (BMI) [Ratio] 35.2 kg/m2 [facility] 12-17-2023 08:54-0400 Body weight 108.4 kg [facility] 12-17-2023 08:54-0400 Diastolic blood pressure 76 mm[Hg] [facility] 12-17-2023 08:54-0400 Heart rate 76 /min [facility] 12-17-2023 08:54-0400 Systolic blood pressure 154 mm[Hg] [facility] 12-05-2023 08:52-0400 Body height 175.26 cm [facility] 12-05-2023 08:52-0400 Body mass index (BMI) [Ratio] 35 kg/m2 [facility] 12-05-2023 08:52-0400 Body weight 107.67 kg [facility] 12-05-2023 08:52-0400 Diastolic blood pressure 78 mm[Hg] [facility] 12-05-2023 08:52-0400 Heart rate 69 /min [facility] 12-05-2023 08:52-0400 Systolic blood pressure 147 mm[Hg] [facility] 09-13-2023 13:30-0500 Body height 175.26 cm Jeremy Magallanes Other [facility] 09-13-2023 13:30-0500 Body mass index (BMI) [Ratio] 33.22 kg/m2 Jeremy Magallanes Other [facility] Other 09-13-2023 13:30-0500 Body temperature 98.4 [degF] Jeremy Magallanes Other [facility] Other 09-13-2023 13:30-0500 Body weight 102.06 kg Jeremy Magallanes Other [facility] Other 09-13-2023 13:30-0500 Body weight 102.05 kg [facility] 09-13-2023 13:30-0500 Diastolic blood pressure 80 mm[Hg] Jeremy Magallanes Other [facility] 09-13-2023 13:30-0500 SaO2% (BldA) [Mass fraction] 93 % Jeremy Magallanes Other [facility] Other 09-13-2023 13:30-0500 Systolic blood pressure 118 mm[Hg] Jeremy Magallanes Other [facility] 08-13-2023 10:30-0500 Body height 175.26 cm Jeremy Magallanes Other [facility] Other 08-13-2023 10:30-0500 Body mass index (BMI) [Ratio] 33.9 kg/m2 Jeremy Magallanes Other [facility] Other 08-13-2023 10:30-0500 Body weight 104.15 kg Jeremy Magallanes Other [facility] Other 08-13-2023 10:30-0500 Diastolic blood pressure 78 mm[Hg] Jeremy Magallanes Other [facility] Other 08-13-2023 10:30-0500 Systolic blood pressure 124 mm[Hg] Jeremy Magallanes Other [facility] Other 06-25-2023 08:45-0500 Body height 175.26 cm Jeremy Magallanes Other [facility] Other 06-25-2023 08:45-0500 Body mass index (BMI) [Ratio] 33.37 kg/m2 Jeremy Magallanes Other [facility] Other 06-25-2023 08:45-0500 Body temperature 96.5 [degF] Jeremy Magallanes Other [facility] Other 06-25-2023 08:45-0500 Body weight 102.51 kg Jeremy Magallanes Other [facility] Other 06-25-2023 08:45-0500 Diastolic blood pressure 85 mm[Hg] Jeremy Magallanes Other [facility] Other 06-25-2023 08:45-0500 Systolic blood pressure 149 mm[Hg] Jeremy Magallanes Other [facility] Other 05-28-2023 10:45-0400 Body height 175.26 cm Jeremy Magallanes Other [facility] Other 05-28-2023 10:45-0400 Body mass index (BMI) [Ratio] 33.52 kg/m2 Jeremy Magallanes Other [facility] Other 05-28-2023 10:45-0400 Body weight 102.97 kg Jeremy Magallanes Other [facility] Other 05-28-2023 10:45-0400 Diastolic blood pressure 82 mm[Hg] Jeremy Magallanes Other [facility] Other 05-28-2023 10:45-0400 Systolic blood pressure 147 mm[Hg] Jeremy Magallanes Other [facility] Other 2023 08:45-0400 Body height 175.26 cm Jeremy Magallanes Other [facility] Other 2023 08:45-0400 Body mass index (BMI) [Ratio] 33.52 kg/m2 Jeremy Magallanes Other [facility] Other 2023 08:45-0400 Body weight 102.97 kg Jeremy Magallanes Other [facility] Other 2023 08:45-0400 Diastolic blood pressure 85 mm[Hg] Jeremy Magallanes Other [facility] Other 2023 08:45-0400 Systolic blood pressure 156 mm[Hg] Jeremy Magallanes Other [facility] Other 04-30-2023 09:45-0400 Body height 175.26 cm Jeremy Magallanes Other [facility] Other 04-30-2023 09:45-0400 Body mass index (BMI) [Ratio] 34.32 kg/m2 Jeremy Magallanes Other [facility] Other 04-30-2023 09:45-0400 Body temperature 96.2 [degF] Jeremy Magallanes Other [facility] Other 04-30-2023 09:45-0400 Body weight 105.42 kg Jeremy Magallanes Other [facility] Other 04-30-2023 09:45-0400 Diastolic blood pressure 78 mm[Hg] Jeremy Magallanes Other [facility] Other 04-30-2023 09:45-0400 Respiratory rate 16 /min Jeremy Magallanes Other [facility] Other 04-30-2023 09:45-0400 Systolic blood pressure 146 mm[Hg] Jeremy Magallanes Other [facility] Other 02-20-2023 09:15-0400 Body height 175.26 cm Jeremy Magallanes Other [facility] Other 02-20-2023 09:15-0400 Body mass index (BMI) [Ratio] 33.46 kg/m2 Jeremy Magallanes Other [facility] Other 02-20-2023 09:15-0400 Body weight 102.79 kg Jeremy Magallanes Other [facility] Other 02-20-2023 09:15-0400 Diastolic blood pressure 77 mm[Hg] Jeremy Magallanes Other [facility] Other 02-20-2023 09:15-0400 Systolic blood pressure 131 mm[Hg] Jeremy Magallanes Other [facility] Other 01-17-2023 08:45-0400 Body height 175.26 cm Jeremy Magallanes Other [facility] Other 01-17-2023 08:45-0400 Body mass index (BMI) [Ratio] 33.37 kg/m2 Jeremy Magallanes Other [facility] Other 01-17-2023 08:45-0400 Body weight 102.51 kg Jeremy Magallanes Other [facility] Other 01-17-2023 08:45-0400 Diastolic blood pressure 79 mm[Hg] Jeremy Magallanes Other [facility] Other 01-17-2023 08:45-0400 Systolic blood pressure 128 mm[Hg] Jeremy Magallanes Other [facility] Other 11-23-2022 09:30-0400 Body height 175.26 cm Jeremy Magallanes Other [facility] Other 11-23-2022 09:30-0400 Body mass index (BMI) [Ratio] 33.96 kg/m2 Jeremy Magallanes Other [facility] Other 11-23-2022 09:30-0400 Body weight 104.33 kg Jeremy Magallanes Other [facility] Other 11-23-2022 09:30-0400 Diastolic blood pressure 72 mm[Hg] Jeremy Magallanes Other [facility] Other 11-23-2022 09:30-0400 Systolic blood pressure 122 mm[Hg] Jeremy Magallanes Other [facility] Other 09-04-2022 11:30-0500 Body height 175.26 cm Jeremy Magallanes Other [facility] Other 09-04-2022 11:30-0500 Body mass index (BMI) [Ratio] 33.52 kg/m2 Jeremy Magallanes Other [facility] Other 09-04-2022 11:30-0500 Body weight 102.97 kg Jeremy Magallanes Other [facility] Other 09-04-2022 11:30-0500 Diastolic blood pressure 80 mm[Hg] Jeremy Magallanes Other [facility] Other 09-04-2022 11:30-0500 SaO2% (BldA) [Mass fraction] 95 % Jeremy Magallanes Other [facility] Other 09-04-2022 11:30-0500 Systolic blood pressure 122 mm[Hg] Jeremy Magallanes Other [facility] Other 02-06-2022 12:45-0400 Body height 175.26 cm Kesha Olexa Other [facility] Other 02-06-2022 12:45-0400 Body mass index (BMI) [Ratio] 31.01 kg/m2 Kesha Olexa Other [facility] Other 02-06-2022 12:45-0400 Body weight 95.26 kg Kesha Olexa Other [facility] Other 05-26-2021 13:15-0400 Body height 175.26 cm Harriet Ginty Other [facility] Other 05-26-2021 13:15-0400 Body mass index (BMI) [Ratio] 31.01 kg/m2 Harriet Ginty Other [facility] Other 05-26-2021 13:15-0400 Body temperature 98.3 [degF] Harriet Ginty Other [facility] Other 05-26-2021 13:15-0400 Body weight 95.26 kg Harriet Ginty Other [facility] Other 05-26-2021 13:15-0400 SaO2% (BldA) [Mass fraction] 96 % Harriet Elizabethnty Other [facility] Other Encounters Encounter Date Encounter Type Care Provider Facility Start: 05-27-2024 End: 05-27-2024 Office outpatient new 30 minutes [facility] MAKAYLA-RADIOLOGIC TECH Work Phone: [facility] Comment on above: Dysphagia, unspecifi ed type (Primary Dx); Black stools; Gastroesophageal reflux disease, unspecified whether esophagitis present; Abnormal esophagram Start: 05-27-2024 End: 05-27-2024 ambulatory [facility] Start: 05-18-2024 End: 05-18-2024 ambulatory Zacarias Pike MD Facility: [place] Start: 05-14-2024 End: 05-21-2024 Telephone encounter Eleanor Meraz MD Work Phone: General Surgery Comment on above: New Patient; Care Co ordinator - Other Start: 04-07-2024 End: 04-07-2024 ambulatory MALATHI RAMIRESMIS Not Available Start: 04-06-2024 End: 04-06-2024 ambulatory Zacarias Pike MD Facility: [place] Start: 03-18-2024 End: 03-18-2024 ambulatory [facility] Work Phone: Start: 03-18-2024 End: 03-18-2024 Patient encounter procedure [facility] Physician [facility] Work Phone: Start: 03-16-2024 End: 03-16-2024 ambulatory Andrius Antoinetteautas Ricardoitis Facility: [place] Start: 03-03-2024 End: 03-03-2024 ambulatory [facility] Work Phone: Start: 03-03-2024 End: 03-03-2024 Patient encounter procedure [facility] Work Phone: Start: 02-27-2024 Non-patient / Non-visit [facility] Physician [facility] Work Phone: Start: 02-24-2024 End: 02-24-2024 ambulatory Andrius Vytautas Gieshaitis Facility: [facility] Start: 02-03-2024 End: 02-03-2024 ambulatory Andrius Vytautas Ricardoitis Facility: [place] Start: 01-20-2024 End: 01-20-2024 ambulatory [facility] Start: 12-17-2023 End: 12-17-2023 ambulatory [facility] Work Phone: Start: 12-17-2023 End: 12-17-2023 Patient encounter procedure [facility] Physician [facility] Work Phone: Start: 12-05-2023 End: 12-05-2023 ambulatory [facility] Work Phone: Start: 12-05-2023 End: 12-05-2023 Patient encounter procedure [facility] Physician [facility] Work Phone: Start: 10-23-2023 Non-patient / Non-visit [facility] Physician [facility] Work Phone: Start: 10-08-2023 Non-patient / Non-visit [facility] Physician [facility] Work Phone: Start: 10-07-2023 End: 10-07-2023 ambulatory BARBIE Ko POCOS Not Available Start: 09-18-2023 End: 09-18-2023 ambulatory Jeremy Magallanes Other [facility] Other Start: 09-18-2023 Telephone encounter Jeremy Magallanes [facility] Start: 09-13-2023 End: 09-13-2023 ambulatory Jeremy Magallanes Other [facility] Other Start: 09-13-2023 Office outpatient vi sit 15 minutes Jeremy Magallanes [facility] Start: 09-13-2023 End: 09-13-2023 Patient encounter procedure [facility] Physician [facility]- Start: 09-11-2023 Telephone encounter [place] [...] 09-10-2023 End: 09-10-2023 ambulatory Jeremy Magallanes Other [facility] Other Start: 09-10-2023 Telephone encounter Jeremy Magallanes [facility] Start: 09-06-2023 End: 09-06-2023 ambulatory Jeremy Magallanes Other [facility] Other Start: 09-06-2023 Telephone encounter Jeremy Magallanes [facility] Start: 09-02-2023 End: 09-02-2023 ambulatory HI POCOS Not Available Start: 08-20-2023 End: 08-20-2023 ambulatory Jeremy Magallanes Other [facility] Other Start: 08-20-2023 Telephone encounter Jeremy Magallanes [facility] Start: 08-13-2023 End: 08-13-2023 ambulatory Jeremy Magallanes Other [facility] Other Start: 08-13-2023 Office outpatient vi sit 25 minutes Jeremy Magallanes [facility] Start: 08-13-2023 Telephone encounter Jeremy Magallanes [facility] Start: 08-06-2023 End: 08-06-2023 ambulatory Jeremy Magallanes Other [facility] Other Start: 08-06-2023 Telephone encounter Jeremy Magallanes [facility] Start: 07-29-2023 End: 07-29-2023 ambulatory HI POCOS Not Available Start: 07-22-2023 End: 07-22-2023 ambulatory Jeremy Magallanes Other [facility] Other Start: 07-22-2023 Telephone encounter Jeremy Magallanes [facility] Start: 07-19-2023 End: 07-19-2023 ambulatory Jeremy Magallanes Other [facility] Other Start: 07-19-2023 Telephone encounter Jeremy Magallanes [facility] Start: 07-18-2023 End: 07-18-2023 ambulatory Jeremy Magallanes Other [facility] Other Start: 07-18-2023 Telephone encounter Jeremy Magallanes [facility] Start: 07-02-2023 End: 07-02-2023 ambulatory Jeremy Magallanes Other [facility] Other Start: 07-02-2023 Office outpatient vi sit 15 minutes Jeremy Magallanes [facility] Start: 07-02-2023 Telephone encounter Jeremy Magallanes [facility] Start: 06-25-2023 End: 06-25-2023 ambulatory Jeremy Magallanes Other [facility] Other Start: 06-25-2023 Office outpatient vi sit 15 minutes Jeremy Magallanes [facility] Start: 06-21-2023 End: 06-21-2023 ambulatory Jeremy Magallanes Other [facility] Other Start: 06-21-2023 Encounter by edmond owen Jeremy Magallanes [facility] Start: 06-20-2023 End: 06-20-2023 ambulatory Jeremy Magallanes Other [facility] Other Start: 06-20-2023 Telephone encounter Jeremy Magallanes [facility] Start: 06-17-2023 End: 06-17-2023 ambulatory Jeremy Magallanes Other [facility] Other Start: 06-17-2023 Telephone encounter Jeremy Magallanes [facility] Start: 06-10-2023 End: 06-10-2023 ambulatory Jeremy Magallanes Other [facility] Other Start: 06-10-2023 Telephone encounter Jeremy Magallanes [facility] Start: 06-03-2023 End: 06-03-2023 ambulatory Jeremy Magallanes Other [facility] Other Start: 06-03-2023 Telephone encounter Jeremy Magallanes [facility] Start: 05-30-2023 End: 05-31-2023 ambulatory Hi Pocos Facility:[facility] [place] [facility] Start: 05-30-2023 End: 05-30-2023 Patient encounter procedure Hi Pocos [facility] Start: 05-28-2023 End: 05-28-2023 ambulatory Jeremy Magallanes Other [facility] Other Start: 05-28-2023 Office outpatient vi sit 15 minutes Jeremy Magallanes [facility] Start: 2023 End: 2023 ambulatory Jeremy Magallanes Other [facility] Other Start: 2023 Office outpatient vi sit 15 minutes Jeremy Magallanes [facility] Start: 05-16-2023 End: 05-16-2023 ambulatory Jeremy Magallanes Other [facility] Other Start: 05-16-2023 Telephone encounter Jeremy Sona [facility] Start: 04-30-2023 End: 04-30-2023 ambulatory Jeremy Magallanes Other [facility] Other Start: 04-30-2023 Office outpatient vi sit 15 minutes Jeremy Sona [facility] Start: 04-26-2023 End: 04-26-2023 ambulatory Jeremy Sona Other [facility] Other Start: 04-26-2023 Telephone encounter Jeremy Sona [facility] Start: 04-23-2023 End: 04-23-2023 ambulatory Jeremy Magallanes Other [facility] Other Start: 04-23-2023 Telephone encounter Jeremy Sona [facility] Start: 03-25-2023 End: 03-25-2023 ambulatory Jeremy Magallanes Other [facility] Other Start: 03-25-2023 Telephone encounter Jeremy Sona [facility] Start: 03-06-2023 End: 03-06-2023 ambulatory Jeremy Magallanes Other [facility] Other Start: 03-06-2023 Telephone encounter Jeremy Sona [facility] Start: 02-20-2023 End: 02-20-2023 ambulatory Jeremy Sona Other [facility] Other Start: 02-20-2023 Office outpatient vi sit 25 minutes Jeremy Sona [facility] Start: 02-05-2023 End: 02-05-2023 ambulatory Jeremy Sona Other [facility] Other Start: 02-05-2023 Telephone encounter Jeremy Sona [facility] Start: 01-21-2023 End: 01-21-2023 ambulatory Jeremy Sona Other [facility] Other Start: 01-21-2023 Telephone encounter Jeremyyeyo Magallanes [facility] [employer] Start: 01-17-2023 End: 01-17-2023 ambulatory Jeremy Sona Other [facility] Other Start: 01-17-2023 Office outpatient vi sit 15 minutes Jeremy Sona [facility] Start: 12-24-2022 End: 12-24-2022 ambulatory Jeremy Sona Other [facility] Other Start: 12-24-2022 Telephone encounter Jeremy Sona [facility] Start: 12-03-2022 End: 12-03-2022 ambulatory Jeremy Sona Other [facility] Other Start: 12-03-2022 Telephone encounter Jeremy Sona [facility] Start: 11-27-2022 End: 11-27-2022 ambulatory Jeremy Sona Other [facility] Other Start: 11-27-2022 Telephone encounter Jeremy Sona [facility] Start: 11-26-2022 End: 11-26-2022 ambulatory Jeremy Magallanes Other [facility] Other Start: 11-26-2022 Telephone encounter Jeremy Magallanes [facility] Start: 11-24-2022 End: 11-25-[address] JEREMY MAGALLANES Facility:[facility] Start: 11-23-2022 End: 11-23-2022 ambulatory Jeremy Magallanes Other [facility] Other Start: 11-23-2022 Office outpatient vi sit 15 minutes Jeremy Magallanes [facility] Start: 11-05-2022 End: 11-05-2022 ambulatory Jeremy Magallanes Other [facility] Other Start: 11-05-2022 Telephone encounter Jeremy Magallanes [facility] Start: 10-03-2022 End: 10-03-2022 ambulatory Jeremy Magallanes Other [facility] Other Start: 10-03-2022 Telephone encounter Jeremy Magallanes [facility] Start: 09-04-2022 End: 09-04-2022 ambulatory Jeremy Magallanes Other [facility] Other Start: 09-04-2022 Office outpatient vi sit 25 minutes Jeremy Magallanes [facility] Start: 07-26-[address] JEREMY MAGALLANES Facil ity:[facility] Start: 07-19-2022 End: 07-20-[address] WILFREDO ENGLE Facility:H1 Start: 06-07-2022 End: 06-07-[address] JEREMY MAGALLANES Facility:[facility]1 Start: 03-15-2022 ambulatory KESHA TRUJILLO Facility:H 1 Start: 02-06-2022 End: 02-06-2022 ambulatory Kesha Trujillo Other [facility] Other Start: 02-06-2022 Office outpatient vi sit 25 minutes Kesha Trujillo [facility] Start: 02-02-2022 End: 02-03-2022 ambulatory KESHA TRUJILLO Facility:[facility]1 Start: 12-28-2021 End: 12-28-[address] JEREMY MAGALLANES Facility:[facility]1 Start: 12-12-2021 End: 12-13-2021 ambulatory KESHA TRUJILLO [facility] Other Start: 12-12-2021 Office outpatient ne w 30 minutes Kesha Trujillo [facility] [place] Start: 05-26-2021 Office outpatient vi sit 15 [...] Td Vaccines (3 - Td or Tdap) [facility] Start: 05-27-2025 Adult BMI Screening Adult BMI Screening [facility] Start: 05-27-2025 Tobacco Screening Tobacco Screening [facility] Start: 04-19-2024 Influenza vaccination Influenza Vaccine [facility] Start: 03-18-2024 Patient referral [facility] Work Phone: Start: 10-07-2023 End: 10-07-2023 Patient encounter procedure 10/07/2023 8:00 AM EST Office Visit [facility] [address] [facility] [place] [id number] Barbie Tapia DO [address] [place] [address] [facility] Start: 2010 Administration of varicella zoster vaccine Zoster (Shingles) Vaccine (1 of 2) [facility] Start: 1978 Adult BMI Follow Up Plan Adult BMI Follow Up Plan [facility] Start: 1972 Depression Screening Depression Screening [facility] Start: 1960 Tobacco Counseling Tobacco Counseling [facility] CT Chest WO contrast [facility] End: 05-27-2025 Esophagogastroduodenoscopy EGD GI Routine Dysphagia, unspecified type Black stools 1 Occurrences starting 05/27/2024 until 05/27/2025 [facility] Work Phone: Comment on above: 1 Occurrences starting 05/27/2024 until 05/27/2025 Patient referral [facility] Work Phone: XR Pelvis and Hip - bilateral Views [facility] Immunizations Immunization Date Immunization Notes Care Provider Leon escalera 06-02-2018 Influenza, injectabl e, Madin Kyleigh Canine Kidney, preservative free, quadrivalent Argentina Clinton PT Work Phone: [facility] 06-02-2018 influenza virus vaccine, unspecified formulation Priyanka Kamari DOOR MANAGER-RADIOLOGIC TECH Work Phone: [facility] 05-17-2017 influenza virus vaccine, split virus (incl. purified surface antigen) Jeremy Magallanes Other [facility] Other 05-17-2017 influenza virus vaccine, unspecified formulation [facility] 05-16-2017 influenza, injectabl e, quadrivalent, preservative free Argentina Clinton PT Work Phone: [facility] 06-28-2016 influenza, injectabl e, quadrivalent, preservative free Argentina Clinton PT Work Phone: [facility] 06-28-2016 tetanus and diphther ia toxoids, adsorbed, preservative free, for adult use (5 Lf of tetanus toxoid and 2 Lf of diphtheria toxoid) Jeremy Magallanes Other [facility] 05-25-2015 influenza, seasonal, injectable, preservative free Argentina Clinton PT Work Phone: [facility] 05-25-2015 tetanus and diphther ia toxoids, adsorbed, preservative free, for adult use (5 Lf of tetanus toxoid and 2 Lf of diphtheria toxoid) Jeremy Magallanes Other [facility] 06-15-1999 pneumococcal conjuga te vaccine, 7 valent Argentina Clinton PT Work Phone: [facility] Payers Date Payer Category Payer Medicaid [id number] 2013 Medicare [id number] 1960 Unknown [id number] 2.16.84 0.1.268228.3.579.2.593 1960 Unknown [id number] 2.16.84 0.1.596755.3.579.2.593 1960 Unknown [id number] 2.16.84 0.1.021900.3.579.2.593 1960 Unknown [id number] 2.16.84 0.1.789429.3.579.2.593 1960 Unknown [id number] 2.16.84 0.1.575675.3.579.2.593 1960 Unknown [id number] 2.16.84 0.1.837050.3.579.2.593 1960 Unknown [id number] 2.16.84 0.1.847816.3.579.2.593 1960 Unknown [id number] 2.16.84 0.1.278657.3.579.2.593 1960 Unknown [id number] 2.16.8 40.1.781960.3.579.2.727 1960 Unknown [id number] 2.16.84 0.1.563745.3.579.2.1259 1960 Unknown [id number] 2.16.84 0.1.344080.3.579.2.1259 1960 Unknown [id number] 2.16.84 0.1.164108.3.579.2.1259 1960 Unknown [id number] 2.16.84 0.1.693861.3.579.2.1259 1960 Unknown [id number] 2.16.840 .1.348259.3.579.2.1259 1960 Unknown [id number] 2.16. 840.1.088720.3.579.2.196 1960 Unknown [id number] 2.16. 840.1.742874.3.579.2.196 1960 Unknown [id number] 2.16. 840.1.579317.3.579.2.196 1960 Unknown [id number] 2.16. 840.1.633379.3.579.2.196 1960 Unknown [id number] 2.16. 840.1.455590.3.579.2.196 1960 Unknown [id number] 2.16. 840.1.287646.3.579.2.196 1960 Unknown [id number] 2.16.8 40.1.446216.3.579.2.1286 1959 Medicaid [id number] 2. 16.840.1.182295.19 1959 Medicare [id number] 2.1 [id number] Self-pay Self Pay [id number] Social History Date Type Detail Facility Start: 09-29-2020 End: 09-02-2023 Sex Assigned At [facility] Tobacco smoking status No Smokin g Status Entered [facility] Start: 06-03-2019 End: 03-27-2023 Tobacco smoking status VTIS Smokes tobacco daily [facility] Work Phone: History of tobacco use Cigarette Smoker [facility] Start: 09-29-2020 End: 03-27-2023 Cigarettes smoked current (pack per day) - Reported 0.5 [facility] Start: 06-03-2019 End: 03-27-2023 Tobacco use and exposure Smokeless tobacco non-user [facility] Start: 09-02-2023 End: 05-27-2024 Alcohol intake Lifetime non-drinker (finding) [facility] Start: 03-27-2023 Alcohol Comment Caffine- Soda [facility] Start: 1960 Sex Assigned At Male [facility] Start: 08-21-2023 Gender identity Identifies as male gender (finding) [facility] Start: 08-21-2023 Sexual orientation Heterosexual (finding) [facility] Start: 02-06-2017 Tobacco smoking status VTIS Ex-smoker (finding) [facility] Tobacco smoking stat [facility] Tobacco smoking consumption unknown [facility] Start: 1960 Sex assigned at Not on file [facility] Frequency of Alcohol Consumption [facility] Medical Equipment Procedure Code Equipment Code Equipment Original Text Equi pment Identifier Dates Accu-Chek FastClix Lancet - Clinical Notes 05-26-2021 to 05-27-2024 Priyanka Vaz APRN-RADIOLOGIC TECH - 05/27/2024 2:30 PM EDTTelephone Encounter - [...] gallbladder polyp. He saw Dr. Martinez in [place] for this. He also reports a positive [...] confusion. Past Medical History: Diagnosis Date Cancer ([facility]) Chronic back pain COPD (chronic obstructive pulmonary disease) ([facility]) Dental disease full dentures Diabetes mellitus ([facility]) Shortness of breath Skin cancer MELANOMA & [...] patient/family/caregiver Referring and communicating with other health adult caregiver Dysphagia, unspecified type [R13.10] CHARLEE BIGGS [facility] [place] This note was created with the assistance of a speech recognition program. While intending to generate a timely document that accurately reflects the content of the visit, no guarantee can be provided that every grammatical or spelling mistake has been or will be identified or corrected. Thank you for your understanding. CHARLEE Biggs 05/27/24 1553 documented in this encounter [facility] 05-15-2024 Telephone encounter Note Images from the original note were not included. Consult from Dr. Jeremy Magallanes (Internal Medicine) [facility] Referral received from PCP for [...] 04/08/2024 Barium Swallow 03/21/2024 CT Chest [facility] 05-15-2024 Miscellaneous Notes Images from the original note were not included. Consult from Dr. Jeremy Magallanes (Internal Medicine) [facility] Referral received from PCP for [...] were not included. Referral was sent from [facility] for new consult with Dr Meraz Please see below and advise documented in this encounter [facility] 05-14-2024 Telephone encounter Note Images from the original note were not included. Referral was sent from [facility] for new consult with Dr Meraz Please see below and advise [facility] 10-02-2023 Telephone encounter Note No attempts to hear back; closing referral. [facility] 10-02-2023 Miscellaneous Notes No attempts to hear back; closing referral. documented in this encounter [facility] 09-13-2023 Evaluation note Encounter Date Diagnosis Assessment Notes Aug, Chronic obstructive pulmonary disease, unspecified (ICD-10 - J44.9) Finish antibiotics and prednisone as prescribed. Denies pulmonary referral at this time. Hasn't smoked since 09/08 and declines chantix or patches. Aug, Current smoker (ICD-10 - F17.200) [facility] Other 01-23-2024 Evaluation note* Encounter Date Diagnosis Assessment Notes Treatment Notes Treatment Clinical Notes Aug, Lumbar radicular pain (ICD-10 - M54.16) [facility] Other 01-19-2024 Evaluation note* Encounter Date Diagnosis Assessment Notes Treatment Notes Treatment Clinical Notes Aug, Lumbar radicular pain (ICD-10 - M54.16) [facility] Other 12-26-2023 Evaluation note* Encounter Date Diagnosis Assessment Notes Treatment Notes Treatment Clinical Notes Jul, Type 2 diabetes mellitus with hyperglycemia, without long-term current use of insulin (ICD-10 - E11.65) [facility] Other 12-26-2023 Evaluation note* Encounter Date Diagnosis [...] T3s after shoulder pain has improved post-operatively. [facility] Other 12-04-2023 Evaluation note* Encounter Date Diagnosis Assessment Notes Treatment Notes Treatment Clinical Notes Jul, Type 2 diabetes mellitus with hyperglycemia, without long-term current use of insulin (ICD-10 - E11.65) [facility] Other 12-01-2023 Evaluation note* Encounter Date Diagnosis Assessment Notes Treatment Notes Treatment Clinical Notes Jul, Type 2 diabetes mellitus with hyperglycemia, without long-term current use of insulin (ICD-10 - E11.65) [facility] Other 11-30-2023 Evaluation note* Encounter Date Diagnosis Assessment Notes Treatment Notes Treatment Clinical Notes Jun, Labral tear of shoulder, right, subsequent encounter (ICD-10 - S43.431D) [facility] Other 11-14-2023 Evaluation note* Encounter Date Diagnosis [...] pain (ICD-10 - R07.9) r/o cardiac cause [facility] Other 11-07-2023 Evaluation note* Encounter Date Diagnosis [...] to decrease dose and possibly discontinue medication. [facility] Other 11-02-2023 Evaluation note* Encounter Date Diagnosis Assessment Notes Treatment Notes Treatment Clinical Notes Jun, Acute pain of right shoulder (ICD-10 - M25.511) [facility] Other 10-30-2023 Evaluation note* Encounter Date Diagnosis Assessment Notes Treatment Notes Treatment Clinical Notes May, Acute pain of right shoulder (ICD-10 - M25.511) [facility] Other 10-23-2023 Evaluation note* Encounter Date Diagnosis Assessment Notes Treatment Notes Treatment Clinical Notes May, Acute pain of right shoulder (ICD-10 - M25.511) [facility] Other 10-16-2023 Evaluation note* Encounter Date Diagnosis Assessment Notes Treatment Notes Treatment Clinical Notes May, Acute pain of right shoulder (ICD-10 - M25.511) [facility] Other 10-10-2023 Evaluation note* Encounter Date Diagnosis Assessment Notes Treatment Notes Treatment Clinical Notes May, Acute pain of right shoulder (ICD-10 - M25.511) MRI and surgery planning pending. Pt understands this is a controlled substance and to call in 1 week w update on treatment plan. May, Bronchitis (ICD-10 - J40) Finish antibiotic, rest, hydrate Steroids for wheezing. [facility] Other 10-04-2023 Evaluation note* Encounter Date Diagnosis Assessment Notes Treatment Notes Treatment Clinical Notes May, Acute pain of right shoulder (ICD-10 - M25.511) Reviewed OARRS and discussed short term plan of increase in pain medication. He is due for a refill of the T3s presently. Stop them, replace w norco. Pt understands weekly prescription and will need to d/c after anticipated surgery. [facility] Other 09-12-2023 Evaluation note* Encounter Date Diagnosis [...] office and the ER visit on 04/26 [facility] Other 07-05-2023 Evaluation note* Encounter Date Diagnosis [...] and will need less prn pain med. [facility] Other 06-01-2023 Evaluation note* Encounter Date Diagnosis [...] left shoulder (ICD-10 - M25.512) as above. [facility] Other 04-17-2023 Evaluation note* Encounter Date Diagnosis Assessment Notes Treatment Notes Treatment Clinical Notes Nov, Bronchitis (ICD-10 - J40) [facility] Other 04-11-2023 Evaluation note* Encounter Date Diagnosis Assessment Notes Treatment Notes Treatment Clinical Notes Nov, Disc degeneration, lumbar (ICD-10 - M51.36) Nov, Lumbar radicular pain (ICD-10 - M54.16) [facility] Other 04-07-2023 Evaluation note* Encounter Date Diagnosis [...] quit smoking. Pt verbalizes understanding and agreement. [facility] Other 02-15-2023 Evaluation note* Encounter Date Diagnosis Assessment Notes Treatment Notes Treatment Clinical Notes Sep, Lumbar radicular pain (ICD-10 - M54.16) [facility] Other 01-17-2023 Evaluation note* Encounter Date Diagnosis [...] is outlined on the test result page. [facility] Other 10-20-2022 NoteIndication: Calculus in kidney. Comparison: [...] Electronically authenticated by: JOHN PINTO Date: 2022-06-07 20:07[facility]06-21-2022 Evaluation note* Encounter Date Diagnosis Assessment [...] of repair, infection and wound healing delays. [facility] Other 04-26-2022 NotePROCEDURE: XR SHOULDER LT 2V or > COMPARISON: None. HISTORY: Pain of left shoulder joint FINDINGS: BONES:No acute fracture or dislocation. 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 No visible soft tissue swelling. EFFUSION:None visible. OTHER: Negative. IMPRESSION: Mild osteoarthritis Electronically authenticated by: BARBIE MEMBRENO Date: 2021-12-12 15:[address] [place], [place] 9176204-26-2022 Evaluation note* Encounter Date Diagnosis Assessment Notes [...] pain of left shoulder (ICD-10 - M25.512) [facility] Other 10-08-2021 Evaluation note* Encounter Date Diagnosis [...] as needed for cough. Advised patient that Lotus contains antihistamine and cough suppressant and to be cautious using other OTC cold medications. Patient to follow up with PCP if symptoms do not improve. Immediate eval if SOB, difficulty breathing, chest pain, dizziness, or other concerning symptoms. Patient verbalizes understanding and is agreeable to treatment plan [facility] Other Evaluation + Plan note No data available for this section [facility] noteNo InformationNort[facility] Other Evaluation note* Diagnosis Onset Date Resolution Status Arthralgia acute Lumbar pain acute Type II diabetes mellitus [place] [facility] Work Phone: Evaluation note* Diagnosis Onset Date Resolution Status Arthralgia acute Lumbar pain acute Type II diabetes mellitus [place] Bilateral hip pain acute [facility] Work Phone: Evaluation note* Diagnosis Onset Date Resolution Status Arthralgia acute Lumbar pain acute Type II diabetes mellitus [place] Bilateral hip pain acute Lumbar pain acute [facility] Work Phone: Evaluation note* Diagnosis Onset Date Resolution Status Submandibular abscess acute Chronic obstructive pulmonary disease, unspecified acute Esophageal abnormality acute Mass of left submandibular region acute [facility] Work Phone: Evaluation note* Diagnosis Dysphagia, unspecified type- Primary Black stools Nonspecific abnormal finding in stool contents Gastroesophageal reflux disease, unspecified whether esophagitis present Abnormal esophagram documented in this encounter [facility] general Narrative - Reported* Type Description Date Medical History Asthma Medical History skin cancer-lip Surgical History Left lung biopsy 1977 Surgical History L4 and L5 disc fusion 1984 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 Surgical History carpal tunnel release 2016 Surgical History tonsillectomy Hospitalization History 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 Hospitalization History pneumonia [facility] Other Hospital Discharge instructions No data available for this section [facility] instructionsAmbulatory Orders* Referral to ENT Time Frame: 03/18/24, Location: None Selected [facility] Work Phone: InstructionsNot on filedocumented in this encounter [facility] SystemProgress note No data available for this section [facility] Summary Purpose Family History Relationship Condition Age [...] 1 Epigastric abdominal pain (R10.13) Referral Organization [facility] Referring Provider First Name Jeremy Referring Provider Last Name Sona Referring Provider Specialty [facility] [employer] Referred Organization [facility] Referred Provider Sai Martinez Referred Address ,[place], [place],[address] Referred Provider Specialty Surgery Referral Priority Routine General Notes Es Camilo 11:38:02 AM >received today, attachments made, notes locked, referral faxed Reason 01/28/23 Access Or tho - B shoulder pain L>R - hopes for injections. Diagnosis 1 Pain in right should er (M25.511) Referral Organization [facility] Referring Provider First Name Jeremy Referring Provider Last Name Sona Referring Provider [facility] [employer] Referred Organization [facility] Referred Provider Barbie Tapia Referred Address ,[place], [place],[address] Referred Provider Specialty Orthopaedic Surgery Referral Priority [...] in right should er (M25.511) Referral Organization [facility] Referring Provider First Name Jeremy Referring Provider Last Name Sona Referring Provider Specialty Family [facility] Referred Organization [facility] Referred Provider Barbie Tapia Referred Address ,[place], [place],[address] Referred Provider Specialty Orthopaedic Surgery Referral Priority [...] call back reinier. Reason Comments New Patient Shrimp Trawler - Other Reason Comments postive cologuard LAST COLONOSCOPY WAS OVER 20 YEARS AGO. Difficulty Swallowing Nausea Vomiting Abdominal Pain RUQ PAIN (unrecognized sect ion and content) No Status Records FoundNo Status Records FoundNo Status Records FoundNo Status Records FoundNo Status Records FoundNo Status Records FoundNo Status Records Found INFORMATION SOURCE (unrecogn ized section and content) DATE CREATED AUTHOR 02/10/2022 [facility] DATE CREATED AUTHOR AUTHOR'S ORGANIZ ATION 12/04/2022 [facility] DATE CREATED AUTHOR AUTHOR'S ORGANIZ ATION 06/01/2023 [employer] [facility] DATE CREATED AUTHOR AUTHOR'S ORGANIZ ATION 04/08/2024 [facility] DATE CREATED AUTHOR AUTHOR'S ORGANIZ ATION 2024 [facility] DATE CREATED AUTHOR AUTHOR'S ORGANIZ ATION 05/23/[address] [facility] DATE CREATED AUTHOR AUTHOR'S ORGANIZ ATION [...] Provider Active Start : October 23, 2023 Director Of Vital Statistics Relationship Specialty Start Date End Date Jeremy Magallanes MD [address] [place] [address] PCP - General Family Medicine 01/23/23 Team Status: Inactive Member Role Status Dates Jeremy Magallanes MD Attending Provider Active St art: September 13, 2023 End: September 13, 2023 Director Of Vital Statistics Relationship Specialty Start Date End Date Jeremy Magallanes MD [address] [facility] [place] [address] Referring Family Medicine 05/12/24 Director Of Vital Statistics Relationship Specialty Start Date End Date Jeremy Magallanes MD [address] [facility] [place] [address] PCP - General Family Medicine 06/03/19 Goals [...] prosecute any alcohol or drug abuse patient.[facility] FOR RECORDS PERTAINING TO PATIENTS WHO ARE [...] BE BASED ON THE PRIMARY CLINICAL RECORDS. [employer] [facility]. provides no warranty or guarantee of the accuracy or completeness of information in this document.
[2024-06-03 09:28] LABS: Glucometer 153 mg/dL (74-106)
[2024-06-03] MEDS: 0.9 % SODIUM CHLORIDE 500 ML 50 ML IV (09:34)
--- NOTE | 2024-06-03 10:36 | PM.GSPRC ---
Date of procedure: 06/03/24 Indications for Procedure: Abnormal esophagram/dysphagia Pre-op diagnosis: Abnormal esophagram/dysphagia Post-op diagnosis: other (Small hiatal hernia; esophagitis rule out Prakash's esophagus at 35 cm) Procedure: EGD with biopsy antrum and distal esophagus rule out Prakash's; small hiatal hernia Findings: Small hiatal hernia/esophagitis Anesthesia: [facility] Surgeon: Bill Henry Procedure Summary: Patient was taken to the endoscopy suite placed in the left lateral common position and given sedation by the community service technician. The Olympus EGD scope was advanced under direct visualization into the posterior pharynx esophagus into the stomach and through the pylorus into the first second third and fourth portions of the duodenum which were completely normal. There were no ulcers polyps or tumors seen. The scope was withdrawn to the stomach retroflexed on itself look at the GE junction which was normal. Random biopsies of antrum were taken and hemostasis maintained. The scope was then withdrawn to the distal esophagus where he has a small hiatal hernia and mild esophagitis for which biopsies were taken to rule out Prakash's esophagus. Hemostasis was maintained. The rest of the esophagus was completely normal. I would recommend patient continue taking his omeprazole 40 mg but increase it to twice daily to see if this helps with his symptomatology. We will call with results of biopsies and further recommendations. If he indeed has Prakash's esophagus would recommend surveillance endoscopy in 3 to 5 years. Estimated blood loss (mL): 0 Complications: No Condition: stable Disposition: PACU
[2024-06-03 10:42] VITALS: BP 143/93; PULSE 70; TEMP 36.3; O2SAT 98
[2024-06-03 10:57] VITALS: BP 128/83; PULSE 78; O2SAT 97
[2024-06-03 11:12] VITALS: BP 133/87; PULSE 80; O2SAT 97
[2024-06-03 11:27] VITALS: BP 105/82; PULSE 62; O2SAT 97
[2024-06-03 11:45] VITALS: BP 110/84; PULSE 70
--- NOTE | 2024-06-03 11:53 | PC.NURSE ---
Patient had abdominal pain during recovery. Patient was walked around and provided with a warm pack, which he states was helpful. Sister came to bedside at the end of the recovery and states this pain is nothing new for patient that he has been having these stabbing pains at home. Patient states he is ready to go home. Reminded patient to take his Omeprazole when he arrives home.
[2024-06-04 13:03] LABS: H Pylori Tissue, Urease Negative
== END 2024-06-03 11:45 | disposition home or self-care (01) ==
PROVIDERS: PCP Family Medicine; Visit Provider Surgery
PROC: (CPT 43239; principal; 2024-06-03 10:00)
DX: R13.10 Dysphagia, unspecified (principal); K92.1 Melena; K44.9 Diaphragmatic hernia without obstruction or gangrene; R11.2 Nausea with vomiting, unspecified; R10.13 Epigastric pain; K21.00 Gastro-esophageal reflux disease with esophagitis, without bleeding; R93.3 Abnormal findings on diagnostic imaging of other parts of digestive tract; F17.210 Nicotine dependence, cigarettes, uncomplicated; J44.9 Chronic obstructive pulmonary disease, unspecified; E11.9 Type 2 diabetes mellitus without complications; Z79.84 Long term (current) use of oral hypoglycemic drugs
CPT/HCPCS: 43239; 36415; 82948; 87077; 99999; J2250; J2704

== ENCOUNTER 2024-06-17 07:43 | Outpatient (OUT) | payer MEDICARE, SELFPAY ==
--- OUTSIDE RECORDS SUMMARY | 2024-06-17 07:50 | XMS_ITS | CCD ---
Author Organization [facility] CliniSywy Care Team Providers Care Strategies Analyst Name Role Phone Ronnie Kesha Unavailable Chepe Harriet Unavailable Jeremy Magallanes Unavailable SONA, DR JEREMY Jovel Admitting Unavailable MAGALLANES, DR JEREMY Jovel Attending Unavailable MAGALLANES, DR JEREMY Jovel Primary Care Unavailable MAGALLANES, DR JEREMY Jovel Consulting Unavailable TAVERASRUBI Consulting Unavailable OLEXA, KESHA Admitting Unavailable OLEXA, KESHA Attending Unavailable MAGALLANES, DR JEREMY Jovel Primary Care Unavailable STANWOOD, DR BARBIE Goldberg Consulting Unavailable OLEXA, KESHA [...] Physician Barbie Tapia Referring Unavailable Pocdoron, Barbie Tellez Attending Unavailable Pocdoron, Barbie Tellez Admitting Unavailable Jeremy Magallanes MD Primary Care Provider POCDORON, BARBIE Tellez Attending Unavailable POCOS, BARBIE Tellez Referring Unavailable POCOSBARBIE Attending Unavailable MALATHI SANCHEZ Attending Unavailable JEREMY MAGALLANES Referring Unavailable BARBIE TAPIA Attending Unavailable Giedraitis , Andgloria Miranda Attending Unavailable Giedraitis , Andrius Ruth Attending Unavailable Giedraitis , Andrius Vytautchela Attending Unavailable Giedraitis , Andrius Yusufyttin Attending Unavailable Giedraitis , Andrius Yusufyttin Attending Unavailable Giedraitis , Teressarius Ruth Attending Unavailable Jeremy Magallanes MD Unavailable [phone] PRIYANKA VAZ Attending Unavailable JEREMY MAGALLANES Referring Unavailable JEREMY MAGALLANES Primary Care Unavailable Jeremy Magallanes MD Primary Care Provider MD Jeremy Magallanes Primary Care Provider DO Bill Henry Attending Provider [phone] Jeremy Magallanes Primary Care Unavailable Bill Henry Attending Unavailable Bill Henry Admitting Unavailable Allergies Allergy Classification Reported Allergen(s) Allergy Type Date of Onset Reaction(s) Facility (20 sources) Ibuprofen Drug Allergy [facility] Other (20 sources) olodaterol / tiotropium Drug Allergy shortness of breath [facility] Other (20 sources) CT Scan dye Propensity to adverse reactions [facility] Other (8 sources) Ibuprofen; Translations: [IBUPROFEN] Drug Allergy 08-19-18 80 [facility] Repository (2 sources) Iodine (And Iodine Containting Drugs) Drug allergy (disorder) 09-07-19 16 [facility] Repository (1 source) NSAIDs Drug allergy (disorder) [facility] (20 sources) fentaNYL Drug Allergy 12-05-19 24 Unknown, [facility] (8 sources) Ibuprofen Drug Allergy 01-15-20 15 Rash, [facility] (20 sources) Ofloxacin Drug Allergy 12-05-19 24 Unknown, [facility] (3 sources) zafirlukast Drug Allergy 01-15-20 15 Unknown [facility] Other (20 sources) Zafirlukast *ANTIASTHMATIC AND BRONCHODILATOR AGEN Propensity to adverse reactions Unknown [facility] Other (20 sources) Ibuprofen & Diet Manage Prod *ANALGESICS - ANTI-IN Propensity to adverse reactions Unknown [facility] Other (3 sources) Allergies Reconciled Propensity to adverse reactions Unknown [facility] Other (20 sources) Iodinated contrast media (substance) Drug allergy 06-03-20 19 Rash, Hives [facility] Other (3 sources) patient allergy list reviewed by nurse or physicia Propensity to adverse reactions 10-05-19 Comment:Done [facility] Other (5 sources) olodaterol Drug Allergy 12-05-[address] [facility] (5 sources) tiotropium Drug Allergy 12-05-[address] [facility] (6 sources) Iodinated Contrast Media; Translations: [IODINATED CONTRAST MEDIA] Allergy to substance 06-03-20 [facility] (5 sources) Ibuprofen & Diet Manage Prod * Allergy to substance 12-04-19 [facility] (5 sources) Zafirlukast *ANTIASTHMATIC AND Allergy to substance 12-04-19 [facility] Medications Current Medications Medication Drug [...] Sep, Active take 2 tablets by mo uth every four hours as needed acetaminophen-codeine (TYLENOL #3) 300-30 mg per tablet Take 2 tablets by mouth every 4 (four) hours as needed. Active acetaminophen-co deine (TYLENOL with CODEINE #4) 300-60 mg per tablet Take 1-2 tablets by mouth in the morning and 1-2 tablets before bedtime. Active take 1 tablet by desirae every six hours Acetaminophen-Codeine #4 300-60 MG 1 tablet as needed Orally every 6 hrs Active [id number] actuat albuterol 0.09 mg/actuat metered dose inhaler (20 sources) beta2-Adrenergic Agonist Start: 05-01-2024 End: 05-01-2024 take 1 puff(s) by inhalation every four hours Albuterol Sulfate Active 2 PUFF INHALATION Every 4 hours 8.5 May 01, 2024 8:24am Start: 06-25-2023 take 2 puff(s) by in halation every four hours albuterol HFA 90 mcg/act [...] / metFORMIN hydrochloride 500 mg oral tablet (20 sources) Biguanide, Sulfonylurea Start: 07-19-2023 take 1 tablet by mouth twice daily glipiZIDE-metFORMIN (METAGLIP) 5-500 mg per tablet Take 1 tablet by mouth 2 (two) times daily at 0800 and 1200. 07/19/2023 Active Start: 07-19-2023 take [address] [facility] in the morning glipiZIDE-metFORMIN (Metaglip) 5-500 MG tablet Take 2 tablets by mouth in the morning and 2 tablets before bedtime. 0 07/19/2023 Active take 1 tablet by desirae th twice daily glipiZIDE-metFORMIN HCl 5-500 MG 1 tablet with a meal Orally bid for 30 days Active omeprazole 40 mg delayed release oral capsule (4 sources) Proton Pump Inhibitor Start: 05-27-2024 take 1 capsule by mouth in the morning omeprazole (PriLOSEC) 40 mg capsule Indications: Gastroesophageal reflux disease, unspecified whether esophagitis present Take 1 capsule (40 mg total) by mouth in the morning. 60 capsule 05/27/2024 Active ondansetron 4 mg disintegrating oral tablet (5 sources) Serotonin-3 Receptor Antagonist Start: 04-27-2024 ondansetron ODT (ZOFRAN ODT) 4 mg disintegrating tablet Dissolve 1 tablet (4 mg total) on tongue once. 04/27/2024 Active Start: 04-27-2024 take 4 mg by mouth e very eight hours Ondansetron Active 4 MG PO Q8H April 27, 2024 12:00am predniSONE 10 mg oral tablet [...] days May, Active Start: 2023 HYDROcodone-ac etaminophen ([place]) 10-325 MG tablet Start: 2023 take 1 [...] 30 mg oral tablet (5 sources) Uncompetitive T-wmlczr-W-aspartate Receptor Antagonist, Sigma-1 Agonist Start: 05-26-2021 take 1 tablet by mouth every eight hours [place] DMT 30-30 MG 1 tablet Orally every 8 hours for 7 days May, Not-Taking DULoxetine 60 mg delayed release oral capsule (14 sources) Serotonin and Norepinephrine Reuptake Inhibitor Start: [...] 8:39am Start: 02-20-2023 take 1 capsule by [facility] every twenty-four hours Cymbalta 60 MG 1 capsule Orally Once a day for 30 days Feb, Active Methylprednisolone (17 sources) Corticosteroid Start: 12-06-2023 End: 12-17-2023 Methylprednisolone [...] Cq) 14 mg/24 hr patch 24 hour (3 sources) Start: 03-03-2024 End: 03-18-2024 apply 1 [...] Onset: 9 Chronic Diabetes mellitus without complication (12 sources) Type 2 diabetes mellitus without complications; Translations: [Type 2 diabetes mellitus without complication] Onset: 7 12-05-2023 Chronic Diseases of mouth; excluding dental (3 sources) Abscess of submandibular region; Translations: [Cellulitis and abscess of mouth] 03-04-2024 Episodic Diseases of white blood cells (20 sources) Leukocytosis; Translations: [Other elevated white blood cell count] Chronic Disorders of teeth and jaw (3 sources) Jaw pain; Translations: [Jaw pain] Episodic Esophageal disorders (20 sources) Gastroesophageal reflux disease without esophagitis; Translations: [Gastro-esophageal reflux disease without esophagitis] Onset: 4 05-27-2024 Chronic Esophageal disorders (4 sources) Disorder of esophagus; Translations: [Disease of [...] levels of other serum enzymes] Episodic Other liver diseases (1 source) Liver mass; Translations: [Hepatomegaly, not elsewhere classified] 03-26-2024 Episodic Other lower respiratory disease (20 sources) [...] right shoulder Episodic Other non-traumatic joint disorders (5 sources) Joint pain; Translations: [Pain in unspecified joint] 12-05-2023 Episodic Other non-traumatic joint disorders (3 sources) Pain in unspecified joint; Translations: [Pain in joint, site unspecified] 12-05-2023 Episodic Other non-traumatic joint disorders (4 sources) Hip pain; Translations: [Pain in right [...] digestive tract] 05-27-2024 Episodic Other skin disorders (2 sources) Mass of submandibular region; Translations: [Localized swelling, mass and lump, head] 03-18-2024 Episodic Other skin disorders (2 sources) Localized swelling, mass and lump, head; Translations: [...] Spondylosis; intervertebral disc disorders; other back problems (15 sources) Radiculopathy, lumbar region; Translations: [Dorsalgia, unspecified] [...] Other penitentiary (current) drug therapy; Translations: [OTH DETENTION CURRENT DRUG THERAPY] Onset: 12-29-2021 Episodic Other [...] Test Name Value Interpretation Reference Range Facility [email or web address] No Panel InformationOrdered By: Rosalia Shea on 06-03-2024 [facility] Pathology Request for Lab Co rpon 06-03-2024 Pathology Request for Lab Raymond Normal [facility] Comment on above: Order Comment: PATHO LOGY GI SPECIMEN Result Comment: See report. Scanned copy available in EMR. PERFORMED BY: [place] [address] PATHOLOGIST LEAD SYSTEMS ANALYST JON PONCE M.D. Performed By: #### P ATH TO [facility] #### [address] CNPMai 05-14-2024 [facility][id number] NICHOLAS CRAIG ([id number]) 1960 M Date Time Provider Department 05/14/24 AMEYA MERAZ [id number] During your visit today, we recorded the following information about you: Keily Martines 05/14/2024 1:11 PM Signed Referral was sent from [facility] for new consult with Dr Meraz Please see below and advise Vivian Morley 05/15/2024 11:54 AM Addendum Consult from Dr. Jeremy Magallanes (Internal Medicine) [facility] Referral received from PCP for [...] Reviewed Reason for Visit: New Patient [172] Top Former - Other [3602] Problem List As Of Date: 05/14/2024 (None) Encounter Status:Closed by VIVIAN MORLEY on 05/21/[address] [facility] Basophils Auto (Bld) [#/Vol] on 02-27-2024 Basophils (Bld) [#/Vol] 0.1 10 3/uL 0.0-0.1 [facility] Basophils/100 WBC Auto (Bld) on 02-27-2024 Basophils/100 WBC (Bld) 0.5 % 0.2-2.0 [facility] Eosinophils/100 WBC Auto (Bl d)on 02-27-2024 Eosinophils/100 WBC (Bld) 2.5 % 0.9-7.0 [facility] Erythrocyte distribution wid th Auto (RBC) [Ratio]on 02-27-2024 Erythrocyte distribution width (RBC) [Ratio] 13.5 % 11.0-15.0 [facility] Estimated glomerular filtrat ion rate (GFR) non- Americanon 02-27-2024 GFR/1.73 sq M.predicted among non-blacks MDRD (S/P/Bld) [Vol rate/Area] mL/min/{1.73_m2} >=60 [facility] Hematocrit Auto (Bld) [Volum e fraction]on 02-27-2024 Hematocrit (Bld) [Volume fraction] 47.1 % 42.0-54.0 [facility] Hemoglobin [Mass/volume] in Bloodon 02-27-2024 Hemoglobin (Bld) [Mass/Vol] 15.5 g/dL 14.0-18.0 [facility] Laboratory - Chemistry and C hemistry - challengeon 02-27-2024 Calcium [Mass/Vol] 8.9 mg/dL 8.5-10.1 [facility] Chloride [Moles/Vol] 98 mmol/L 98-107 [facility] CO2 [Moles/Vol] 28.1 mmol/L 21.0-32.0 [facility] Creatinine [Mass/Vol] 0.86 mg/dL 0.70-1.30 [facility] GFR/1.73 sq M.predicted MDRD (S/P/Bld) [Vol rate/Area] mL/min/{1.73_m2} >=60 [facility] Glucose [Mass/Vol] 237 mg/dL High 74-106 [facility] Lactate [Moles/Vol] 1.3 mmol/L 0.4-2.0 [facility] Potassium [Moles/Vol] 4.4 mmol/L 3.5-5.1 [facility] Sodium [Moles/Vol] 130 mmol/L Low 136-145 [facility] Urea nitrogen [Mass/Vol] 21.0 mg/dL High 7.0-18.0 [facility] Urea nitrogen/Creatinine [Mass ratio] 24.4 mg/mg [facility] Laboratory - Hematology and Cell countson 02-27-2024 Immature granulocytes/100 WBC (Bld) 0.3 % 0.0-0.5 [facility] Leukocytes [#/volume] correc jean claude for nucleated erythrocytes in Blood by Automated counon 02-27-2024 WBC corrected for nucl RBC Auto (Bld) [#/Vol] 9.3 10 3/uL 4.0-11.0 [facility] Lymphocytes Auto (Bld) [#/Vo l]on 02-27-2024 Lymphocytes (Bld) [#/Vol] 2.4 10 3/uL 1.2-3.8 [facility] Lymphocytes/100 WBC Auto (Bl d)on 02-27-2024 Lymphocytes/100 WBC (Bld) 25.5 % 20.5-60.0 [facility] MCH Auto (RBC) [Entitic mass ]on 02-27-2024 MCH (RBC) [Entitic mass] 29.1 pg 25.9-34.0 [facility] MCHC Auto (RBC) [Mass/Vol]on 02-27-2024 MCHC (RBC) [Mass/Vol] 32.9 g/dL 29.9-35.2 [facility] MCV Auto (RBC) [Entitic vol] on 02-27-2024 MCV (RBC) [Entitic vol] 88.5 fL 80.0-94.0 [facility] Monocytes Auto (Bld) [#/Vol] on 02-27-2024 Monocytes (Bld) [#/Vol] 1.1 10 3/uL High 0.3-0.8 [facility] Monocytes/100 WBC Auto (Bld) on 02-27-2024 Monocytes/100 WBC (Bld) 12.0 % 1.7-12.0 [facility] Neutrophils Auto (Bld) [#/Vo l]on 02-27-2024 Neutrophils (Bld) [#/Vol] 5.5 10 3/uL 1.4-6.5 [facility] Neutrophils/100 WBC Auto (Bl d)on 02-27-2024 Neutrophils/100 WBC (Bld) 59.2 % 43.0-75.0 [facility] No Panel Informationon 02-26 Eosinophils # (Auto) 0.2 10 3/uL 0.0-0.7 [facility] Immature Granulocyte # (Auto) 0.03 10 3/uL 0.00-0.03 [facility] Platelet mean volume Auto (B ld) [Entitic vol]on 02-27-2024 Platelet mean volume (Bld) [Entitic vol] 8.8 fL Low 9.5-13.5 [facility] Platelets Auto (Bld) [#/Vol] on 02-27-2024 Platelets (Bld) [#/Vol] 288 10 3/uL 150-450 [facility] RBC Auto (Bld) [#/Vol]on RBC (Bld) [#/Vol] 5.32 10 6/uL 4.70-6.10 [facility] Serum or plasma anion gap de terminationon 02-27-2024 Anion gap [Moles/Vol] 8.3 mmol/L [facility] Basophils Auto (Bld) [#/Vol] on 12-05-2023 Basophils (Bld) [#/Vol] 0.1 10 3/uL 0.0-0.1 [facility] Basophils/100 WBC Auto (Bld) on 12-05-2023 Basophils/100 WBC (Bld) 0.9 % 0.2-2.0 [facility] Eosinophils/100 WBC Auto (Bl d)on 12-05-2023 Eosinophils/100 WBC (Bld) 2.7 % 0.9-7.0 [facility] Erythrocyte distribution wid th Auto (RBC) [Ratio]on 12-05-2023 Erythrocyte distribution width (RBC) [Ratio] 13.1 % 11.0-15.0 [facility] Estimated glomerular filtrat ion rate (GFR) non- Americanon 12-05-2023 GFR/1.73 sq M.predicted among non-blacks MDRD (S/P/Bld) [Vol rate/Area] mL/min/{1.73_m2} >=60 [facility] Glucose mean value [Mass/vol ume] in Blood Estimated from glycated hemoglobinon 12-05-2023 Average glucose Estimated from glycated hemoglobin (Bld) [Mass/Vol] 171 mg/dL [facility] Hematocrit Auto (Bld) [Volum e fraction]on 12-05-2023 Hematocrit (Bld) [Volume fraction] 48.9 % 42.0-54.0 [facility] Hemoglobin [Mass/volume] in Bloodon 12-05-2023 Hemoglobin (Bld) [Mass/Vol] 16.0 g/dL 14.0-18.0 [facility] Laboratory - Chemistry and C hemistry - challengeon 12-05-2023 Calcium [Mass/Vol] 9.7 mg/dL 8.5-10.1 [facility] Chloride [Moles/Vol] 102 mmol/L 98-107 [facility] CO2 [Moles/Vol] 27.6 mmol/L 21.0-32.0 [facility] Creatinine [Mass/Vol] 1.01 mg/dL 0.70-1.30 [facility] GFR/1.73 sq M.predicted MDRD (S/P/Bld) [Vol rate/Area] mL/min/{1.73_m2} >=60 [facility] Glucose [Mass/Vol] 156 mg/dL High 74-106 [facility] Potassium [Moles/Vol] 4.4 mmol/L 3.5-5.1 [facility] Sodium [Moles/Vol] 139 mmol/L 136-145 [facility] Urea nitrogen [Mass/Vol] 13.0 mg/dL 7.0-18.0 [facility] Urea nitrogen/Creatinine [Mass ratio] 12.9 mg/mg [facility] Laboratory - Hematology and Cell countson 12-05-2023 ESR (Bld) [Velocity] 17 mm/h <=20 [facility] HbA1c (Bld) [Mass fraction] 7.6 % High 4.5-6.2 [facility] Comment on above: ADA RECOMMENDED LIMI T 4.0 - 6.0ADA THERAPEUTIC TARGET < 7.0ACTION SUGGESTED> 7.0 Immature granulocytes/100 WBC (Bld) 0.4 % 0.0-0.5 [facility] Leukocytes [#/volume] correc jean claude for nucleated erythrocytes in Blood by Automated counon 12-05-2023 WBC corrected for nucl RBC Auto (Bld) [#/Vol] 7.7 10 3/uL 4.0-11.0 [facility] Lymphocytes Auto (Bld) [#/Vo l]on 12-05-2023 Lymphocytes (Bld) [#/Vol] 2.4 10 3/uL 1.2-3.8 [facility] Lymphocytes/100 WBC Auto (Bl d)on 12-05-2023 Lymphocytes/100 WBC (Bld) 31.2 % 20.5-60.0 [facility] MCH Auto (RBC) [Entitic mass ]on 12-05-2023 MCH (RBC) [Entitic mass] 28.5 pg 25.9-34.0 [facility] MCHC Auto (RBC) [Mass/Vol]on 12-05-2023 MCHC (RBC) [Mass/Vol] 32.7 g/dL 29.9-35.2 [facility] MCV Auto (RBC) [Entitic vol] on 12-05-2023 MCV (RBC) [Entitic vol] 87.0 fL 80.0-94.0 [facility] Monocytes Auto (Bld) [#/Vol] on 12-05-2023 Monocytes (Bld) [#/Vol] 0.7 10 3/uL 0.3-0.8 [facility] Monocytes/100 WBC Auto (Bld) on 12-05-2023 Monocytes/100 WBC (Bld) 9.5 % 1.7-12.0 [facility] Neutrophils Auto (Bld) [#/Vo l]on 12-05-2023 Neutrophils (Bld) [#/Vol] 4.2 10 3/uL 1.4-6.5 [facility] Neutrophils/100 WBC Auto (Bl d)on 12-05-2023 Neutrophils/100 WBC (Bld) 55.3 % 43.0-75.0 [facility] No Panel Informationon 12-04 Eosinophils # (Auto) 0.2 10 3/uL 0.0-0.7 [facility] Immature Granulocyte # (Auto) 0.03 10 3/uL 0.00-0.03 [facility] Platelet mean volume Auto (B ld) [Entitic vol]on 12-05-2023 Platelet mean volume (Bld) [Entitic vol] 8.6 fL Low 9.5-13.5 [facility] Platelets Auto (Bld) [#/Vol] on 12-05-2023 Platelets (Bld) [#/Vol] 330 10 3/uL 150-450 [facility] RBC Auto (Bld) [#/Vol]on RBC (Bld) [#/Vol] 5.62 10 6/uL 4.70-6.10 [facility] Serum or plasma anion gap de terminationon 12-05-2023 Anion gap [Moles/Vol] 13.8 mmol/L [facility] Magnesiumon 07-02-2023 Magnesium [Mass/Vol] 2.3295316 mg/dL Normal 1.8- 2.4 mg/dL [facility] Other Magnesium see note [facility] Other MRI Shoulder w/o Contrast Ilya holt [...] Signed by: Ian Singh MD Transcribed by: DP Technologist: STELLA Technical Comments None Normal [facility] Consent for Treatmenton 05-19 Consent for Treatment [id number] #1.00TIFF Normal [facility] RAD - MRI Screening Formon 1 RAD - MRI Screening Form [id number]# 1.00TIFF Normal [facility] Physician Orderon 05-09-2023 Physician Order [id number] 4#1.00CD:127 Normal [facility] XR CHEST 2 Von 11-24-2022 [...] TAVERAS Date: 2022-11-24 17:17 Normal [facility] CT LUNG CANCER SCREENINGon 1 09-20-2021 [...] Date: 2022-07-20 07:18 Normal [facility] CBC AUTO DIFFon 06-07-2022 BASO # 0.1 103/ul Normal 0.0-0.1 [facility] Comment on above: Performed By: #### C BC #### [facility] [address] [place] [address] Dr. Eran Chacon Basophils/100 WBC (Bld) 0.6 % Normal 0.2-2.0 [facility] Comment on above: Performed By: #### C BC #### [facility] [address] [place] [address] Dr. Eran Chacon EO # 0.3 103/ul Normal 0.0-0.7 [facility] Comment on above: Performed By: #### C BC #### [facility] [address] [place] [address] Dr. Eran Chacon Eosinophils/100 WBC (Bld) 3.3 % Normal 0.9-7.0 [facility] Comment on above: Performed By: #### C BC #### [facility] [address] [place] [address] Dr. Eran Chacon Erythrocyte distribution width (RBC) [Ratio] 12.9 % Normal 11.0-15.0 [facility] Comment on above: Performed By: #### C BC #### [facility] [address] [place] [address] Dr. Eran Chacon Hematocrit (Bld) [Volume fraction] 47.7 % Normal 42.0-54.0 [facility] Comment on above: Performed By: #### C BC #### [facility] [address] [place] [address] Dr. Eran Chacon Hemoglobin (Bld) [Mass/Vol] 15.9 g/dL Normal 14.0-18.0 [facility] Comment on above: Performed By: #### C BC #### [facility] [address] [place] [address] Dr. Eran Chacon IG # 0.02 10e3/ul Normal 0.00-0.03 [facility] Comment on above: Performed By: #### C BC #### [facility] [address] [place] [address] Dr. Eran Chacon IG % 0.2 % Normal 0.0-0.5 [facility] Comment on above: Performed By: #### C BC #### [facility] [address] [place] [address] Dr. Eran Chacon LYMPH # 3.4 103/ul Normal 1.2-3.8 [facility] Comment on above: Performed By: #### C BC #### [facility] [address] [place] [address] Dr. Eran Chacon Lymphocytes/100 WBC (Bld) 34.5 % Normal 20.5-60.0 [facility] Comment on above: Performed By: #### C BC #### [facility] [address] [place] [address] Dr. Eran Chacon MANUAL DIFF REQ NO Normal [facility] Comment on above: Performed By: #### C BC #### [facility] [address] [place] [address] Dr. Eran Chacon MCH (RBC) [Entitic mass] 29.6 pg Normal 25.9-34.0 [facility] Comment on above: Performed By: #### C BC #### [facility] [address] [place] [address] Dr. Eran Chacon MCHC (RBC) [Mass/Vol] 33.3 g/dL Normal 29.9-35.2 [facility] Comment on above: Performed By: #### C BC #### [facility] [address] [place] [address] Dr. Eran Chacon MCV (RBC) [Entitic vol] 88.8 fL Normal 80.0-94.0 [facility] Comment on above: Performed By: #### C BC #### [facility] [address] [place] [address] Dr. Eran Chacon MONO # 0.9 103/ul Critically high 0.3-0.8 [facility] Comment on above: Performed By: #### C BC #### [facility] [address] [place] [address] Dr. Eran Chacon Monocytes/100 WBC (Bld) 9.3 % Normal 1.7-12.0 [facility] Comment on above: Performed By: #### C BC #### [facility] [address] [place] [address] Dr. Eran Chacon NEUT # 5.2 103/ul Normal 1.4-6.5 [facility] Comment on above: Performed By: #### C BC #### [facility] [address] [place] [address] Dr. Eran Chacon Neutrophils/100 WBC (Bld) 52.1 % Normal 43.0-75.0 [facility] Comment on above: Performed By: #### C BC #### [facility] [address] [place] [address] Dr. Eran Chacon Platelet mean volume (Bld) [Entitic vol] 8.8 fL Critically low 9.5-13.5 [facility] Comment on above: Performed By: #### C BC #### [facility] [address] [place] [address] Dr. Eran Chacon PLT 287 103/ul Normal 150-450 [facility] Comment on above: Performed By: #### C BC #### [facility] [address] [place] [address] Dr. Eran Chacon RBC 5.37 106/ul Normal 4.70-6.10 [facility] [facility] Comment on above: Performed By: #### C BC #### [facility] [address] [place] [address] Dr. Eran Chacon WBC 9.9 103/ul Normal 4.0-11.0 [facility] Comment on above: Performed By: #### C BC #### [facility] [address] [place] [address] Dr. Eran Chacon ER URINE PROFILEon 2 Bilirubin Ql (U) Negative Normal NEGATIVE [facility] Comment on above: Performed By: #### E HANNA SHER #### [facility] [address] [place] [address] Dr. Eran Chacon Clarity (U) CLEAR Normal CLEAR [facility] Comment on above: Performed By: #### Med SHER UMICRO #### [facility] [address] [place] [address] Dr. Eran Chacon Color (U) YELLOW Normal YELLOW [facility] Comment on above: Performed By: #### Med SHER UMICRO #### [facility] [address] [place] [address] Dr. Eran Chacon ERUAHChong A micrscopic examination will be performed if indicated. Normal [facility] Comment on above: Performed By: #### Med SHER UMICRO #### [facility] [address] [place] [address] Dr. Eran Chacon Glucose Ql (U) 500 mg/dl Abnormal NEGATIVE [facility] Comment on above: Performed By: #### Med SHER UMICRO #### [facility] [address] [place] [address] Dr. Eran Chacon Hemoglobin Ql (U) TRACE-INTACT Abnormal NEGATIVE [facility] Comment on above: Performed By: #### Med SHER UMICRO #### [facility] [address] [place] [address] Dr. Eran Chacon Ketones Ql (U) Negative Normal NEGATIVE [facility] Comment on above: Performed By: #### Med SHER UMICRO #### [facility] [address] [place] [address] Dr. Eran Chacon LEUKOCYTES Negative Normal NEGATIVE [facility] Comment on above: Performed By: #### Med SHER UMICRO #### [facility] [address] [place] [address] Dr. Eran Chacon Nitrite Ql (U) Negative Normal NEGATIVE [facility] Comment on above: Performed By: #### Med SHER UMICRO #### [facility] [address] [place] [address] Dr. Eran Chacon pH (U) 6.0 [pH] Normal 5-9 [facility] Comment on above: Performed By: #### HANNA BATES #### [facility] [address] [place] [address] Dr. Eran Chacon SPEC GRAVITY 1.025 Normal 1.005-<=1.02 5 [facility] Comment on above: Performed By: #### BISHNU BATESRO #### [facility] [address] [place] [address] Dr. Eran Chacon UA PROTEIN Negative Normal NEGATIVE/ TRACE [facility] Comment on above: Performed By: #### HANNA BATES #### [facility] [address] [place] [address] Dr. Eran Chacon UR MICRO IND INDICATED Normal [facility] Comment on above: Performed By: #### HANNA BATES #### [facility] [address] [place] [address] Dr. Eran Chacon Urobilinogen Qn (U) 0.2 {Aureliano'U}/dL Normal 0.2 - 1. 0 [facility] Comment on above: Performed By: #### BISHNU BATESRO #### [facility] [address] [place] [address] Dr. Eran Chacon PROF 14(COMP METB)on 022 Albumin [Mass/Vol] 4.0 g/dL Normal 3.4-5.0 [facility] Comment on above: Performed By: #### C MP #### [facility] [address] [place] [address] Dr. Eran Chacon Albumin/Globulin [Mass ratio] 1.2 {ratio} Normal [facility] Comment on above: Performed By: #### C MP #### [facility] [address] [place] [address] Dr. Eran Chacon ALP [Catalytic activity/Vol] 104 U/L Normal 46-116 [facility] Comment on above: Performed By: #### C MP #### [facility] [address] [place] [address] Dr. Eran Chacon ALT [Catalytic activity/Vol] 28 U/L Normal 16-63 [facility] Comment on above: Performed By: #### C MP #### [facility] [address] [address] [address] Eran Chacon Anion gap [Moles/Vol] 7.2 mmol/L Normal [facility] Comment on above: Performed By: #### C MP #### [facility] [address] [address] [address] Eran Chacon AST [Catalytic activity/Vol] 14 U/L Critically low 15-37 [facility] Comment on above: Performed By: #### C MP #### [facility] [address] [address] [address] Eran Chacon Bilirubin [Mass/Vol] 0.4 mg/dL Normal 0.2-1.0 [facility] Comment on above: Performed By: #### C MP #### [facility] [address] [address] [address] Eran Cahcon Calcium [Mass/Vol] 9.0 mg/dL Normal 8.5-10.1 [facility] Comment on above: Performed By: #### C MP #### [facility] [address] [address] [address] Eran Chacon Chloride [Moles/Vol] 103 mmol/L Normal 98-107 [facility] Comment on above: Performed By: #### C MP #### [facility] [address] [address] [address] Eran Chacon CO2 [Moles/Vol] 30.0 mmol/L Normal 21.0-32.0 [facility] Comment on above: Performed By: #### C MP #### [facility] [address] [place] [address] Dr. Eran Chacon Creatinine [Mass/Vol] 0.85 mg/dL Normal 0.70-1.30 [facility] Comment on above: Performed By: #### C MP #### [facility] [address] [place] [address] Dr. Eran Chacon EGFR-AF ANGOLAN >60 Normal >=60 [facility] Comment on above: Performed By: #### C MP #### [facility] [address] [address] [address] Eran Chacon EGFR-NON AF ANGOLAN >60 Normal >=60 [facility] Comment on above: Performed By: #### C MP #### [facility] [address] [place] [address] Dr. Eran Chacon Globulin (S) [Mass/Vol] 3.3 g/dL Normal [facility] Comment on above: Performed By: #### C MP #### [facility] [address] [address] [address] Eran Chacon Glucose [Mass/Vol] 165 mg/dL Critically high 74-106 [facility] Comment on above: Performed By: #### C MP #### [facility] [address] [place] [address] Dr. Eran Chacon Potassium [Moles/Vol] 4.2 mmol/L Normal 3.5-5.1 [facility] Comment on above: Performed By: #### C MP #### [facility] [address] [place] [address] Dr. Eran Chacon Protein [Mass/Vol] 7.3 g/dL Normal 6.4-8.2 [facility] Comment on above: Performed By: #### C MP #### [facility] [address] [place] [address] Dr. Eran Chacon Sodium [Moles/Vol] 136 mmol/L Normal 136-145 [facility] Comment on above: Performed By: #### C MP #### [facility] [address] [place] [address] Dr. Eran Chacon Urea nitrogen [Mass/Vol] 10.0 mg/dL Normal 7.0-18.0 [facility] Comment on above: Performed By: #### C MP #### [facility] [address] [place] [address] Dr. Eran Chacon Urea nitrogen/Creatinine [Mass ratio] 11.8 mg/mg Normal [facility] Comment on above: Performed By: #### C MP #### [facility] [address] [place] [address] Dr. Eran Chacon URINE MICROSCOPIC ONLYon BACTERIA NONE SEEN Normal NONE SEEN The [facility] Comment on above: Performed By: #### E IGNACIOR, UMICRO #### [facility] [address] [place] [address] Dr. Eran Chacon Bacteria identified Cx Nom (U) NOT INDICATED Normal [facility] Comment on above: Performed By: #### E RUR, UMICRO #### [facility] [address] [place] [address] Dr. Eran Chacon CAST NONE SEEN Normal NONE SEEN [facility] Comment on above: Performed By: #### E RUR, UMICRO #### [facility] [address] [place] [address] Dr. Eran Chacon Crystals LM Nom (Urine sed) NONE SEEN Normal NONE SEEN The [facility] Comment on above: Performed By: #### E RUR, UMICRO #### [facility] [address] [place] [address] Dr. Eran Chacon Epithelial cells LM Ql (Urine sed) RARE Normal NONE SEEN /RARE [facility] Comment on above: Performed By: #### E NIKKY, UMICRO #### [facility] [address] [place] [address] Dr. Eran Chacon MUCOUS NONE SEEN Normal NONE SEEN [facility] Comment on above: Performed By: #### Med SHER, UMICRO #### [facility] [address] [place] [address] Dr. Eran Chacon RBC 0-2 Normal 0-2 [facility] Comment on above: Performed By: #### Med SHER UMICRO #### [facility] [address] [place] [address] Dr. Eran Chacon WBC 2-5 Abnormal NONE SEEN The [facility] Comment on above: Performed By: #### Med SHER UMICRO #### [facility] [address] [place] [address] Dr. Eran Chacon MRI SHOULDER LT WO [...] NAVAS Date: 2022-02-02 17:09 Normal [facility] Vital Signs Date Time Vital Sign Value Performing Clinician Facility 05-27-2024 14:56-0400 Body height 175.3 cm Priyanka العليtoby [employer] Work Phone: [facility] 05-27-2024 14:56-0400 Body mass index (BMI) [Ratio] 33.97 kg/m2 Priyankajm Vaz APRNAmor[employer] Life SciencesPATIENT TRANSPORTER Work Phone: [facility] 05-27-2024 14:56-0400 Body weight 104.33 kg Priyanka Kamari BENAVIDES-PATIENT TRANSPORTER Work Phone: [facility] [employer] [facility] 03-18-2024 08:46-0400 Body height 175.26 cm [facility] 03-18-2024 08:46-0400 Body mass index (BMI) [Ratio] 34.4 kg/m2 [facility] 03-18-2024 08:46-0400 Body weight 105.68 kg [facility] 03-18-2024 08:46-0400 Diastolic blood pressure 80 mm[Hg] [facility] 03-18-2024 08:46-0400 Heart rate 72 /min [facility] 03-18-2024 08:46-0400 Systolic blood pressure 130 mm[Hg] [facility] 03-03-2024 11:54-0400 Body height 175.26 cm [facility] 03-03-2024 11:54-0400 Body mass index (BMI) [Ratio] 34.7 kg/m2 [facility] 03-03-2024 11:54-0400 Body weight 106.59 kg [facility] 03-03-2024 11:54-0400 Diastolic blood pressure 81 mm[Hg] [facility] 03-03-2024 11:54-0400 Heart rate 69 /min [facility] 03-03-2024 11:54-0400 Systolic blood pressure 129 mm[Hg] [facility] 12-17-2023 08:54-0400 Body height 175.26 cm [facility] 12-17-2023 08:54-0400 Body mass index (BMI) [Ratio] 35.2 kg/m2 [facility] 12-17-2023 08:54-0400 Body weight 108.4 kg [facility] 12-17-2023 08:54-0400 Diastolic blood pressure 76 mm[Hg] [facility] 12-17-2023 08:54-0400 Heart rate 76 /min [facility] 12-17-2023 08:54-0400 Systolic blood pressure 154 mm[Hg] [facility] 12-05-2023 08:52-0400 Body height 175.26 cm [facility] 12-05-2023 08:52-0400 Body mass index (BMI) [Ratio] 35 kg/m2 [facility] 12-05-2023 08:52-0400 Body weight 107.67 kg [facility] 12-05-2023 08:52-0400 Diastolic blood pressure 78 mm[Hg] [facility] 12-05-2023 08:52-0400 Heart rate 69 /min [facility] 12-05-2023 08:52-0400 Systolic blood pressure 147 mm[Hg] [facility] 09-13-2023 13:30-0500 Body height 175.26 cm Jeremy Magallanes Other [facility] 09-13-2023 13:30-0500 Body mass index (BMI) [Ratio] 33.22 kg/m2 Jeremy Magallanes Other [facility] Other 09-13-2023 13:30-0500 Body temperature 98.4 [degF] Jeremy Magallanes Other [facility] Other 09-13-2023 13:30-0500 Body weight 102.06 kg Jeremy Magallanes Other [facility] Other 09-13-2023 13:30-0500 Body weight 102.05 kg [facility] 09-13-2023 13:30-0500 Diastolic blood pressure 80 mm[Hg] Jeremy Magallanes Other [facility] 09-13-2023 13:30-0500 SaO2% (BldA) [Mass fraction] 93 % Jeremy Magallanes Other [facility] Other 09-13-2023 13:30-0500 Systolic blood pressure 118 mm[Hg] Jeremy Magallanes Other [facility] 08-13-2023 10:30-0500 Body height 175.26 cm Jeremy Magallanes Other [facility] Other 08-13-2023 10:30-0500 Body mass index (BMI) [Ratio] 33.9 kg/m2 Jeremy Magallanes Other [facility] Other 08-13-2023 10:30-0500 Body weight 104.15 kg Jeremy Magallanes Other [facility] Other 08-13-2023 10:30-0500 Diastolic blood pressure 78 mm[Hg] Jeremy Magallanes Other [facility] Other 08-13-2023 10:30-0500 Systolic blood pressure 124 mm[Hg] Jeremy Magallanes Other [facility] Other 06-25-2023 08:45-0500 Body height 175.26 cm Jeremy Magallanes Other [facility] Other 06-25-2023 08:45-0500 Body mass index (BMI) [Ratio] 33.37 kg/m2 Jeremy Magallanes Other [facility] Other 06-25-2023 08:45-0500 Body temperature 96.5 [degF] Jeremy Magallanes Other [facility] Other 06-25-2023 08:45-0500 Body weight 102.51 kg Jeremy Magallanes Other [facility] Other 06-25-2023 08:45-0500 Diastolic blood pressure 85 mm[Hg] Jeremy Magallanes Other [facility] Other 06-25-2023 08:45-0500 Systolic blood pressure 149 mm[Hg] Jeremy Magallanes Other [facility] Other 05-28-2023 10:45-0400 Body height 175.26 cm Jeremy Magallanes Other [facility] Other 05-28-2023 10:45-0400 Body mass index (BMI) [Ratio] 33.52 kg/m2 Jeremy Magallanes Other [facility] Other 05-28-2023 10:45-0400 Body weight 102.97 kg Jeremy Magallanes Other [facility] Other 05-28-2023 10:45-0400 Diastolic blood pressure 82 mm[Hg] Jeremy Magallanes Other [facility] Other 05-28-2023 10:45-0400 Systolic blood pressure 147 mm[Hg] Jeremy Magallanes Other [facility] Other 2023 08:45-0400 Body height 175.26 cm Jeremy Magallanes Other [facility] Other 2023 08:45-0400 Body mass index (BMI) [Ratio] 33.52 kg/m2 Jeremy Magallanes Other [facility] Other 2023 08:45-0400 Body weight 102.97 kg Jeremy Magallanes Other [facility] Other 2023 08:45-0400 Diastolic blood pressure 85 mm[Hg] Jeremy Magallanes Other [facility] Other 2023 08:45-0400 Systolic blood pressure 156 mm[Hg] Jeremy Magallanes Other [facility] Other 04-30-2023 09:45-0400 Body height 175.26 cm Jeremy Magallanes Other [facility] Other 04-30-2023 09:45-0400 Body mass index (BMI) [Ratio] 34.32 kg/m2 Jeremy Magallanes Other [facility] Other 04-30-2023 09:45-0400 Body temperature 96.2 [degF] Jeremy Magallanes Other [facility] Other 04-30-2023 09:45-0400 Body weight 105.42 kg Jeremy Magallanes Other [facility] Other 04-30-2023 09:45-0400 Diastolic blood pressure 78 mm[Hg] Jeremy Magallanes Other [facility] Other 04-30-2023 09:45-0400 Respiratory rate 16 /min Jeremy Magallanes Other [facility] Other 04-30-2023 09:45-0400 Systolic blood pressure 146 mm[Hg] Jeremy Magallanes Other [facility] Other 02-20-2023 09:15-0400 Body height 175.26 cm Jeremy Magallanes Other [facility] Other 02-20-2023 09:15-0400 Body mass index (BMI) [Ratio] 33.46 kg/m2 Jeremy Magallanes Other [facility] Other 02-20-2023 09:15-0400 Body weight 102.79 kg Jeremy Magallanes Other [facility] Other 02-20-2023 09:15-0400 Diastolic blood pressure 77 mm[Hg] Jeremy Magallanes Other [facility] Other 02-20-2023 09:15-0400 Systolic blood pressure 131 mm[Hg] Jeremy Magallanes Other [facility] Other 01-17-2023 08:45-0400 Body height 175.26 cm Jeremy Magallanes Other [facility] Other 01-17-2023 08:45-0400 Body mass index (BMI) [Ratio] 33.37 kg/m2 Jeremy Magallanes Other [facility] Other 01-17-2023 08:45-0400 Body weight 102.51 kg Jeremy Magallanes Other [facility] Other 01-17-2023 08:45-0400 Diastolic blood pressure 79 mm[Hg] Jeremy Magallanes Other [facility] Other 01-17-2023 08:45-0400 Systolic blood pressure 128 mm[Hg] Jeremy Magallanes Other [facility] Other 11-23-2022 09:30-0400 Body height 175.26 cm Jeremy Magallanes Other [facility] Other 11-23-2022 09:30-0400 Body mass index (BMI) [Ratio] 33.96 kg/m2 Jeremy Magallanes Other [facility] Other 11-23-2022 09:30-0400 Body weight 104.33 kg Jeremy Magallanes Other [facility] Other 11-23-2022 09:30-0400 Diastolic blood pressure 72 mm[Hg] Jeremy Magallanes Other [facility] Other 11-23-2022 09:30-0400 Systolic blood pressure 122 mm[Hg] Jeremy Magallanes Other [facility] Other 09-04-2022 11:30-0500 Body height 175.26 cm Jeremy Magallanes Other [facility] Other 09-04-2022 11:30-0500 Body mass index (BMI) [Ratio] 33.52 kg/m2 Jeremy Magallanes Other [facility] Other 09-04-2022 11:30-0500 Body weight 102.97 kg Jeremy Magallanes Other [facility] Other 09-04-2022 11:30-0500 Diastolic blood pressure 80 mm[Hg] Jeremy Magallanes Other [facility] Other 09-04-2022 11:30-0500 SaO2% (BldA) [Mass fraction] 95 % Jeremy Magallanes Other [facility] Other 09-04-2022 11:30-0500 Systolic blood pressure 122 mm[Hg] Jeremy Magallanes Other [facility] Other 02-06-2022 12:45-0400 Body height 175.26 cm Kesha Olexa Other [facility] Other 02-06-2022 12:45-0400 Body mass index (BMI) [Ratio] 31.01 kg/m2 Kesha Olexa Other [facility] Other 02-06-2022 12:45-0400 Body weight 95.26 kg Kesha Olexa Other [facility] Other 05-26-2021 13:15-0400 Body height 175.26 cm Harriet Mo Other [facility] Other 05-26-2021 13:15-0400 Body mass index (BMI) [Ratio] 31.01 kg/m2 Harriet Johnsonntcristiano Other [facility] Other 05-26-2021 13:15-0400 Body temperature 98.3 [degF] Harriet Mo Other [facility] Other 05-26-2021 13:15-0400 Body weight 95.26 kg Harriet Johnsonntcristiano Other [facility] Other 05-26-2021 13:15-0400 SaO2% (BldA) [Mass fraction] 96 % Harriet Mo Other [facility] Other Encounters Encounter Date Encounter Type Care Provider Facility Start: 06-12-2024 End: 06-12-2024 [facility] Only [facility] Start: 06-10-2024 End: 06-10-2024 Orders Only Rosalia Shea [facility] Comment on above: Dysphagia, unspecifi ed type; Black stools Start: 06-03-2024 End: 06-03-2024 ambulatory MD Jeremy Magallanes Work Phone: [facility] Work Phone: Start: 06-03-2024 End: 06-03-2024 Departed Referred MD Jeremy Magallanes Work Phone: [facility] Start: 05-27-2024 End: 05-27-2024 Office outpatient new 30 minutes Priyanka Vaz GARAGE WORKER-PATIENT TRANSPORTER Work Phone: [facility] Comment on above: Dysphagia, unspecifi ed type (Primary Dx); Black stools; Gastroesophageal reflux disease, unspecified whether esophagitis present; Abnormal esophagram Start: 05-27-2024 End: 05-27-[address] [facility] Start: 05-18-2024 End: 05-18-2024 ambulatory Zacarias Pike MD Facility:[facility] Start: 05-14-2024 End: 05-21-2024 Telephone encounter Ameya Meraz MD Work Phone: General Surgery Comment on above: New Patient; Care Co ordinator - Other Start: 04-07-2024 End: 04-07-2024 ambulatory MALATHI SANCHEZ Not Available Start: 04-06-2024 End: 04-06-2024 ambulatory Zacarias Pike MD Facility:[facility] Start: 03-18-2024 End: 03-18-2024 ambulatory [facility] Work Phone: Start: 03-18-2024 End: 03-18-2024 Patient encounter procedure [facility] Work Phone: Start: 03-16-2024 End: 03-16-2024 ambulatory Zacarias Pike MD Facility:[facility] Start: 03-03-2024 End: 03-03-2024 ambulatory [facility] Work Phone: Start: 03-03-2024 End: 03-03-2024 Patient encounter procedure [facility] Phys[facility] Work Phone: Start: 02-27-2024 Non-patient / Non-visit [facility] Physician [facility] Work Phone: Start: 02-24-2024 End: 02-24-2024 ambulatory Zacarias Pike MD Facility:[facility] Start: 02-03-2024 End: 02-03-2024 ambulatory Zacarias Pike MD Facility:[facility] Start: 01-20-2024 End: 01-20-2024 ambulatory Zacarias Pike MD Facility:[facility] Start: 12-17-2023 End: 12-17-2023 ambulatory [facility] Work Phone: Start: 12-17-2023 End: 12-17-2023 Patient encounter procedure [facility] Physician [facility] Work Phone: Start: 12-05-2023 End: 12-05-2023 ambulatory [facility] Work Phone: Start: 12-05-2023 End: 12-05-2023 Patient encounter procedure [facility] Work Phone: Start: 10-23-2023 Non-patient / Non-visit [facility] Physician [facility] Work Phone: Start: 10-08-2023 Non-patient / Non-visit [facility] Physician [facility] Work Phone: Start: 10-07-2023 End: 10-07-2023 ambulatory BARBIE Tellez POCOS Not Available Start: 09-18-2023 End: 09-18-2023 ambulatory Jeremy Magallanes Other [facility] Other Start: 09-18-2023 Telephone encounter Jeremy Sona [facility] Start: 09-13-2023 End: 09-13-2023 ambulatory Jeremy Sona Other [facility] Other Start: 09-13-2023 Office outpatient vi sit 15 minutes Jeremy Magallanes [facility] Start: 09-13-2023 End: 09-13-2023 Patient encounter procedure [facility] Physician [facility]- Start: 09-11-2023 Telephone [...] 09-10-2023 End: 09-10-2023 ambulatory Jeremy Magallanes Other [facility] Other Start: 09-10-2023 Telephone encounter Jeremy Sona [facility] Start: 09-06-2023 End: 09-06-2023 ambulatory Jeremy Magallanes Other [facility] Other Start: 09-06-2023 Telephone encounter Jeermy Sona [facility] Start: 09-02-2023 End: 09-02-2023 ambulatory JIN POCOS Not Available Start: 08-20-2023 End: 08-20-2023 ambulatory Jeremy Sona Other [facility] Other Start: 08-20-2023 Telephone encounter Jeremy Sona [facility] Start: 08-13-2023 End: 08-13-2023 ambulatory Jeremy Sona Other [facility] Other Start: 08-13-2023 Office outpatient vi sit 25 minutes Jeremy Magallanes [facility] Start: 08-13-2023 Telephone encounter Jeremy Sona [facility] Start: 08-06-2023 End: 08-06-2023 ambulatory Jeremy Sona Other [facility] Other Start: 08-06-2023 Telephone encounter Jeremy Sona [facility] Start: 07-29-2023 End: 07-29-2023 ambulatory JIN POCOS Not Available Start: 07-22-2023 End: 07-22-2023 ambulatory Jeremy Magallanes Other [facility] Other Start: 07-22-2023 Telephone encounter Jeremy Magallanes [facility] Start: 07-19-2023 End: 07-19-2023 ambulatory Jeremy Magallanes Other [facility] Other Start: 07-19-2023 Telephone encounter Jeremy Magallanes [facility] Start: 07-18-2023 End: 07-18-2023 ambulatory Jeremy Magallanes Other [facility] Other Start: 07-18-2023 Telephone encounter Jeremy Magallanes [facility] Start: 07-02-2023 End: 07-02-2023 ambulatory Jeremy Magallanes Other [facility] Other Start: 07-02-2023 Office outpatient vi sit 15 minutes Jeremy Magallanes [facility] Start: 07-02-2023 Telephone encounter Jeremy Magallanes [facility] Start: 06-25-2023 End: 06-25-2023 ambulatory Jeremy Magallanes Other [facility] Other Start: 06-25-2023 Office outpatient vi sit 15 minutes Jeremy Magallanes [facility] Start: 06-21-2023 End: 06-21-2023 ambulatory Jeremy Magallanes Other [facility] Other Start: 06-21-2023 Encounter by compute r link Jeremy Magallanes [facility] Start: 06-20-2023 End: 06-20-2023 ambulatory Jeremy Magallanes Other [facility] Other Start: 06-20-2023 Telephone encounter Jeremy Magallanes [facility] Start: 06-17-2023 End: 06-17-2023 ambulatory Jeremy Magallanes Other [facility] Other Start: 06-17-2023 Telephone encounter [facility] [facility] Start: 06-10-2023 End: 06-10-2023 ambulatory Jeremy Sona Other [facility] Other Start: 06-10-2023 Telephone encounter Jeremy Sona [facility] Start: 06-03-2023 End: 06-03-2023 ambulatory Jeremy Magallanes Other [facility] Other Start: 06-03-2023 Telephone encounter Jeremy Sona [facility] Start: 05-30-2023 End: 05-31-2023 ambulatory Barbie Tellez [place]: 05-30-2023 End: 05-30-2023 Patient encounter procedure Barbie Tellez [place] [facility] Start: 05-28-2023 End: 05-28-2023 ambulatory Jeremy Magallanes Other [facility] Other Start: 05-28-2023 Office outpatient vi sit 15 minutes Jeremy Magallanes [facility] Start: 2023 End: 2023 ambulatory Jeremy Magallanes Other [facility] Other Start: 2023 Office outpatient vi sit 15 minutes Jeremy Magallanes [facility] Start: 05-16-2023 End: 05-16-2023 ambulatory Jeremy Magallanes Other [facility] Other Start: 05-16-2023 Telephone encounter Jeremy Sona [facility] Start: 04-30-2023 End: 04-30-2023 ambulatory Jeremy Magallanes Other [facility] Other Start: 04-30-2023 Office outpatient vi sit 15 minutes Jeremy Magallanes [facility] Start: 04-26-2023 End: 04-26-2023 ambulatory Jeremy Magallanes Other [facility] Other Start: 04-26-2023 Telephone encounter Jeremy Sona [facility] Start: 04-23-2023 End: 04-23-2023 ambulatory Jeremy Magallanes Other [facility] Other Start: 04-23-2023 Telephone encounter Jeremy Sona [facility] Start: 03-25-2023 End: 03-25-2023 ambulatory Jeremy Sona Other [facility] Other Start: 03-25-2023 Telephone encounter Jeremy Sona [facility] Start: 03-06-2023 End: 03-06-2023 ambulatory Jeremy Sona Other [facility] Other Start: 03-06-2023 Telephone encounter Jeremy Sona [facility] Start: 02-20-2023 End: 02-20-2023 ambulatory Jeremy Sona Other [facility] Other Start: 02-20-2023 Office outpatient vi sit 25 minutes Jeremy Magallanes [facility] Start: 02-05-2023 End: 02-05-2023 ambulatory Jeremy Sona Other [facility] Other Start: 02-05-2023 Telephone encounter Jeremy Sona [facility] Start: 01-21-2023 End: 01-21-2023 ambulatory Jeremy Sona Other [facility] Other Start: 01-21-2023 Telephone encounter Jeremy Sona [facility] [employer] [facility] Start: 01-17-2023 End: 01-17-2023 ambulatory Jeremy Sona Other [facility] Other Start: 01-17-2023 Office outpatient vi sit 15 minutes Jeremy Sona [facility] Start: 12-24-2022 End: 12-24-2022 ambulatory Jeremy Sona Other [facility] Other Start: 12-24-2022 Telephone encounter Jeremy Sona [facility] Start: 12-03-2022 End: 12-03-2022 ambulatory Jeremy Magallanes Other [facility] Other Start: 12-03-2022 Telephone encounter Jeremy Magallanes [facility] Start: 11-27-2022 End: 11-27-2022 ambulatory Jeremy Magallanes Other [facility] Other Start: 11-27-2022 Telephone encounter Jeremy Magallanes [facility] Start: 11-26-2022 End: 11-26-2022 ambulatory Jeremy Magallanes Other [facility] Other Start: 11-26-2022 Telephone encounter Jeremy Magallanes [facility] Start: 11-24-2022 End: 11-25-[address] JEREMY MAGALLANES Facility:[facility] Start: 11-23-2022 End: 11-23-2022 ambulatory Jeremy Magallanes Other [facility] Other Start: 11-23-2022 Office outpatient vi sit 15 minutes Jeremy Magallanes [facility] Start: 11-05-2022 End: 11-05-2022 ambulatory Jeremy Magallanes Other [facility] Other Start: 11-05-2022 Telephone encounter Jeremy Sona [facility] Start: 10-03-2022 End: 10-03-2022 ambulatory Jeremy Magallanes Other [facility] Other Start: 10-03-2022 Telephone encounter Jeremy Magallanes [facility] Start: 09-04-2022 End: 09-04-2022 ambulatory Jeremy Magallanes Other [facility] Other Start: 09-04-2022 Office outpatient vi sit 25 minutes Jeremy Magallanes [facility] Start: 07-26-[address] JEREMY MAGALLANES Facil ity:[facility] Start: 07-19-2022 End: 07-20-[address] WILFREDO ENGLE Facility:[facility] Start: 06-07-2022 End: 06-07-[address] JEREMY MAGALLANES Facility:[facility] Start: 03-15-2022 ambulatory KESHA TRUJILLO Facility:[facility] Start: 02-06-2022 End: 02-06-2022 ambulatory Kesha Trujillo Other [facility] Other Start: 02-06-2022 Office outpatient vi sit 25 minutes Kesha Trujillo [facility] Start: 02-02-2022 End: 02-03-2022 ambulatory KESHA TOLLIVERMARTIN Facility:[facility] Start: 12-28-2021 End: 12-28-[address] JEREMY MAGALLANES Facility:[facility] Start: 12-12-2021 End: 12-13-2021 ambulatory KESHA TRUJILLO [facility] Other Start: 12-12-2021 Office outpatient ne w 30 minutes Kesha Zacharymartin [facility] Start: 05-26-2021 Office outpatient vi sit 15 minutes Harriet Ginty [facility] Procedures Date Procedure Procedure Detail Performing Clinician Start: 06-03-2024 Esophagogastroduodenoscopy Priyanka vázquez GARAGE WORKER-PATIENT TRANSPORTER Work Phone: Start: 06-03-2024 Level i surg pathology gross examination only Not In System Ref Prov Start: 06-03-2024 MULTIPLE LABS Not In System Ref Prov Start: 12-18-2018 Laboratory test result abnormal Jeremy olmstead Other Start: 05-12-2018 Removal of suture Jeremy Magallanes Other Start: 01-08-2017 Screening for malignant neoplasm of prostate Jeremy Magallanes Other Screening for malign ant neoplasm of colon Jeremy Magallanes Other Screening for malign ant neoplasm of prostate Jeremy Magallanes Other Plan of Treatment Date Care Activity Detail Author Start: 06-28-2026 DTaP,Tdap and Td Vaccines (3 - Td or Tdap) DTaP,Tdap and Td Vaccines (3 - Td or Tdap) [facility] Start: 05-27-2025 Adult BMI Screening Adult BMI Screening [facility] Start: 05-27-2025 Tobacco Screening Tobacco Screening [facility] Start: 04-19-2024 Influenza vaccination Influenza Vaccine [facility] Start: 03-18-2024 Patient referral [facility] Work Phone: Start: 10-07-2023 End: 10-07-2023 Patient encounter procedure 10/07/2023 8:00 AM EST Office Visit [facility] [address] [place] [address] Barbie Tapia DO [address] [place] [address] [facility] Start: 2010 Administration of varicella zoster vaccine Zoster (Shingles) Vaccine (1 of 2) [facility] Start: 1978 Adult BMI Follow Up Plan Adult BMI Follow Up Plan [facility] Start: 1972 Depression Screening Depression Screening [facility] Start: 1960 Tobacco Counseling Tobacco Counseling [facility] CT Chest WO contrast [facility] End: 05-27-2025 Esophagogastroduodenoscopy EGD GI Routine Dysphagia, unspecified type Black stools 1 Occurrences starting 05/27/2024 until 05/27/2025 [facility] Work Phone: Comment on above: 1 Occurrences starting 05/27/2024 until 05/27/2025 Patient referral [facility] Work Phone: XR Pelvis and Hip - bilateral Views [facility] Immunizations Immunization Date Immunization Notes Care Provider Fa jw 06-02-2018 Influenza, injectabl e, Madin Kyleigh Canine Kidney, preservative free, quadrivalent Argentina Clinton PT Work Phone: [facility] 06-02-2018 influenza virus vaccine, unspecified formulation Priyanka Vaz GARAGE WORKER-PATIENT TRANSPORTER Work Phone: [facility] 05-17-2017 influenza virus vaccine, split virus (incl. purified surface antigen) Jeremy Magallanes Other [facility] Other 05-17-2017 influenza virus vaccine, unspecified formulation [facility] 05-16-2017 influenza, injectabl e, quadrivalent, [...] Lf of diphtheria toxoid) Jeremy Magallanes Other [facility] 05-25-2015 influenza, seasonal, injectable, preservative free Argentina Clinton PT Work Phone: [facility] 05-25-2015 tetanus and diphther ia toxoids, adsorbed, preservative free, for adult use (5 Lf of tetanus toxoid and 2 Lf of diphtheria toxoid) Jeremy Magallanes Other [facility] 06-15-1999 pneumococcal conjuga te vaccine, 7 valent Argentina Clinton PT Work Phone: [facility] Payers Date Payer Category Payer Medicaid [id number] 2013 Medicare [id number] 1960 Unknown [id number] 2.16.84 0.1.370205.3.579.2.593 1960 Unknown [id number] 2.16.84 0.1.975546.3.579.2.593 1960 Unknown [id number] 2.16.84 0.1.643591.3.579.2.593 1960 Unknown [id number] 2.16.84 0.1.544005.3.579.2.593 1960 Unknown [id number] 2.16.84 0.1.064914.3.579.2.593 1960 Unknown [id number] 2.16.84 0.1.850157.3.579.2.593 1960 Unknown [id number] 2.16.84 0.1.175871.3.579.2.593 1960 Unknown [id number] 2.16.84 0.1.510287.3.579.2.593 1960 Unknown [id number] 2.16.8 40.1.245664.3.579.2.727 1960 Unknown [id number] 2.16.84 0.1.105501.3.579.2.1259 1960 Unknown [id number] 2.16.84 0.1.167649.3.579.2.1259 1960 Unknown [id number] 2.16.84 0.1.346411.3.579.2.1259 1960 Unknown [id number] 2.16.84 0.1.308030.3.579.2.1259 1960 Unknown [id number] 2.16.840 .1.959592.3.579.2.1259 1960 Unknown [id number] 2.16. 840.1.534519.3.579.2.196 1960 Unknown [id number] 2.16. 840.1.931936.3.579.2.196 1960 Unknown [id number] 2.16. 840.1.476058.3.579.2.196 1960 Unknown [id number] 2.16. 840.1.412391.3.579.2.196 1960 Unknown [id number] 2.16. 840.1.771237.3.579.2.196 1960 Unknown [id number] 2.16. 840.1.078009.3.579.2.196 1960 Unknown [id number] 2.16.8 40.1.600585.3.579.2.1286 1959 Medicaid [id number] 2. 16.840.1.589320.19 1959 Medicare [id number] 2.1 [id number] Self-pay Self Pay [id number] Social History Date Type Detail Facility Start: 09-29-2020 End: 09-02-2023 Sex Assigned At [facility] Tobacco smoking status No Smokin g Status Entered [facility] Start: 06-03-2019 End: 03-27-2023 Tobacco smoking status MIIS Smokes tobacco daily [facility] Work Phone: History of tobacco use Cigarette Smoker [facility] Start: 09-29-2020 End: 03-27-2023 Cigarettes smoked current (pack per day) - Reported 0.5 [facility] Start: 06-03-2019 End: 03-27-2023 Tobacco use and exposure Smokeless tobacco non-user [facility] Start: 09-02-2023 End: 05-27-2024 Alcohol intake Lifetime non-drinker (finding) [facility] Start: 03-27-2023 Alcohol Comment Caffine- Soda [facility] Start: 1960 Sex Assigned At Male [facility] Start: 08-21-2023 Gender identity Identifies as male gender (finding) [facility] Start: 08-21-2023 Sexual orientation Heterosexual (finding) [facility] Start: 02-06-2017 Tobacco smoking status MIIS Ex-smoker (finding) [facility] Tobacco smoking stat [facility] Tobacco smoking consumption unknown [facility] Start: 1960 Sex assigned at Not on file [facility] Frequency of Alcohol Consumption Never [facility] Start: 06-01-2019 Sex Male (finding) [facility] Medical Equipment Procedure Code Equipment Code Equipment Original Text Equi pment Identifier Dates Accu-Chek FastClix Lancet - Clinical Notes 05-26-2021 to 06-12-2024 Telephone Encounter - Evelyn Mendoza, [facility] - 06/12/2024 12:00 PM EDTTelephone Encounter - Evelyn Mendoza [facility] - 06/12/2024 12:00 PM EDTTelephone Encounter - Evelyn Mendoza [facility] - 06/12/2024 12:00 PM EDT Note Date & Type Note Facility 06-12-2024 Miscellaneous Notes ----- Message from Dr. Bill Henry, sent at 06/12/2024 11:54 AM EDT ----- Regarding: path results Please let pt. Know that he has Prakash's esophagus and needs surveillance scope in 5 years unless something changes. He should continue taking his omeprazole 40 mg daily and if has breakthrough symptoms increase to morning and at bedtime. He should also lose weight.Please make sure he gets handout on Prakash's understanding that it increases his risk of esophageal cancer. Thanks, Dr. Kc Spoke with patient regarding pathology results. Patient verbally understood with no further questions. 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 Address verified with patient. documented in this encounter [facility] 06-12-2024 Telephone encounter Note ----- Message from Dr. Bill Henry, sent at 06/12/2024 11:54 AM EDT ----- Regarding: path results Please let pt. Know that he has Prakash's esophagus and needs surveillance scope in 5 years unless something changes. He should continue taking his omeprazole 40 mg daily and if has breakthrough symptoms increase to morning and at bedtime. He should also lose weight.Please make sure he gets handout on Prakash's understanding that it increases his risk of esophageal cancer. [facility], [facility] Telephone encounter Note Spoke with patient regarding pathology results. Patient verbally understood with no further questions. 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 Address verified with patient. [facility] 05-27-2024 History of Presen t illness Narrative Images from the original note were not included. Chief Complaint: Dysphagia History of Present Illness Nicholas Criag is a 64 y.o. male who presents [...] gallbladder polyp. He saw Dr. Martinez in [place] for this. He also reports a positive [...] confusion. Past Medical History: Diagnosis Date Cancer ([facility]) Chronic back pain COPD (chronic obstructive pulmonary disease) ([facility]) Dental disease full dentures Diabetes mellitus ([facility]) Shortness of breath Skin cancer MELANOMA & [...] patient/family/caregiver Referring and communicating with other health toddler caregiver Dysphagia, unspecified type [R13.10] PRIYANKA VAZ, GARAGE WORKER-PATIENT TRANSPORTER [facility] [place] This note was created with the assistance of a speech recognition program. While intending to generate a timely document that accurately reflects the content of the visit, no guarantee can be provided that every grammatical or spelling mistake has been or will be identified or corrected. Thank you for your understanding. CHARLEE Patel 05/27/24 1555 documented in this encounter [facility] 05-15-2024 Telephone encounter Note Images from the original note were not included. Consult from Dr. Jeremy Magallanes (Internal Medicine) [facility] Referral received from PCP for [...] completed: 04/08/2024 Barium Swallow 03/21/2024 CT Chest [facility] 05-15-2024 Miscellaneous Notes Images from the original note were not included. Consult from Dr. Jeremy Magallanes (Internal Medicine) [facility] Referral received from PCP for [...] were not included. Referral was sent from [facility] for new consult with Dr Meraz Please see below and advise documented in this encounter [facility] 05-14-2024 Telephone encounter Note Images from the original note were not included. Referral was sent from [facility] for new consult with Dr Meraz Please see below and advise [facility] 10-02-2023 Telephone encounter Note No attempts to hear back; closing referral. [facility] 10-02-2023 Miscellaneous Notes No attempts to hear [...] patches. Aug, Current smoker (ICD-10 - F17.200) [facility] Other 01-23-2024 Evaluation note* Encounter Date Diagnosis Assessment Notes Treatment Notes Treatment Clinical Notes Aug, Lumbar radicular pain (ICD-10 - M54.16) [facility] Other 01-19-2024 Evaluation note* Encounter Date Diagnosis Assessment Notes Treatment Notes Treatment Clinical Notes Aug, Lumbar radicular pain (ICD-10 - M54.16) [facility] Other 12-26-2023 Evaluation note* Encounter Date Diagnosis Assessment Notes Treatment Notes Treatment Clinical Notes Jul, Type 2 diabetes mellitus with hyperglycemia, without long-term current use of insulin (ICD-10 - E11.65) [facility] Other 12-26-2023 Evaluation note* Encounter Date Diagnosis [...] T3s after shoulder pain has improved post-operatively. [facility] Other 12-04-2023 Evaluation note* Encounter Date Diagnosis Assessment Notes Treatment Notes Treatment Clinical Notes Jul, Type 2 diabetes mellitus with hyperglycemia, without long-term current use of insulin (ICD-10 - E11.65) [facility] Other 12-01-2023 Evaluation note* Encounter Date Diagnosis Assessment Notes Treatment Notes Treatment Clinical Notes Jul, Type 2 diabetes mellitus with hyperglycemia, without long-term current use of insulin (ICD-10 - E11.65) [facility] Other 11-30-2023 Evaluation note* Encounter Date Diagnosis Assessment Notes Treatment Notes Treatment Clinical Notes Jun, Labral tear of shoulder, right, subsequent encounter (ICD-10 - S43.431D) [facility] Other 11-14-2023 Evaluation note* Encounter Date Diagnosis [...] pain (ICD-10 - R07.9) r/o cardiac cause [facility] Other 11-07-2023 Evaluation note* Encounter Date Diagnosis [...] to decrease dose and possibly discontinue medication. [facility] Other 11-02-2023 Evaluation note* Encounter Date Diagnosis Assessment Notes Treatment Notes Treatment Clinical Notes Jun, Acute pain of right shoulder (ICD-10 - M25.511) [facility] Other 10-30-2023 Evaluation note* Encounter Date Diagnosis Assessment Notes Treatment Notes Treatment Clinical Notes May, Acute pain of right shoulder (ICD-10 - M25.511) [facility] Other 10-23-2023 Evaluation note* Encounter Date Diagnosis Assessment Notes Treatment Notes Treatment Clinical Notes May, Acute pain of right shoulder (ICD-10 - M25.511) [facility] Other 10-16-2023 Evaluation note* Encounter Date Diagnosis Assessment Notes Treatment Notes Treatment Clinical Notes May, Acute pain of right shoulder (ICD-10 - M25.511) [facility] Other 10-10-2023 Evaluation note* Encounter Date Diagnosis Assessment Notes Treatment Notes Treatment Clinical Notes May, Acute pain of right shoulder (ICD-10 - M25.511) MRI and surgery planning pending. Pt understands this is a controlled substance and to call in 1 week w update on treatment plan. May, Bronchitis (ICD-10 - J40) Finish antibiotic, rest, hydrate Steroids for wheezing. [facility] Other 10-04-2023 Evaluation note* Encounter Date Diagnosis Assessment Notes Treatment Notes Treatment Clinical Notes May, Acute pain of right shoulder (ICD-10 - M25.511) Reviewed [place] and discussed short term plan of increase in pain medication. He is due for a refill of the T3s presently. Stop them, replace w norco. Pt understands weekly prescription and will need to d/c after anticipated surgery. [facility] Other 09-12-2023 Evaluation note* Encounter Date Diagnosis [...] office and the ER visit on 04/26 [facility] Other 07-05-2023 Evaluation note* Encounter Date Diagnosis [...] and will need less prn pain med. [facility] Other 06-01-2023 Evaluation note* Encounter Date Diagnosis [...] left shoulder (ICD-10 - M25.512) as above. [facility] Other 04-17-2023 Evaluation note* Encounter Date Diagnosis Assessment Notes Treatment Notes Treatment Clinical Notes Nov, Bronchitis (ICD-10 - J40) [facility] Other 04-11-2023 Evaluation note* Encounter Date Diagnosis Assessment Notes Treatment Notes Treatment Clinical Notes Nov, Disc degeneration, lumbar (ICD-10 - M51.36) Nov, Lumbar radicular pain (ICD-10 - M54.16) [facility] Other 04-07-2023 Evaluation note* Encounter Date Diagnosis [...] quit smoking. Pt verbalizes understanding and agreement. [facility] Other 02-15-2023 Evaluation note* Encounter Date Diagnosis Assessment Notes Treatment Notes Treatment Clinical Notes Sep, Lumbar radicular pain (ICD-10 - M54.16) [facility] Other 01-17-2023 Evaluation note* Encounter Date Diagnosis [...] is outlined on the test result page. [facility] Other 10-20-2022 NoteIndication: Calculus in kidney. Comparison: [...] by: JOHN PINTO Date: 2022-06-07 20:07[facility]06-21[facility] Evaluation note* Encounter Date Diagnosis Assessment [...] of repair, infection and wound healing delays. [facility] Other 04-26-2022 NotePROCEDURE: XR SHOULDER LT 2V or > COMPARISON: None. HISTORY: Pain of left shoulder joint FINDINGS: BONES:No acute fracture or dislocation. 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 No visible soft tissue swelling. EFFUSION:None visible. OTHER: Negative. IMPRESSION: Mild osteoarthritis Electronically authenticated by: BARBIE MEMBRENO Date: 2021-12-12 15:[address] [place], [place] 0607404-26-2022 Evaluation note* Encounter Date Diagnosis Assessment Notes [...] pain of left shoulder (ICD-10 - M25.512) [facility] Other 10-08-2021 Evaluation note* Encounter Date Diagnosis [...] as needed for cough. Advised patient that [place] contains antihistamine and cough suppressant and to be cautious using other OTC cold medications. Patient to follow up with PCP if symptoms do not improve. Immediate eval if SOB, difficulty breathing, chest pain, dizziness, or other concerning symptoms. Patient verbalizes understanding and is agreeable to treatment plan [facility] Other Evaluation + Plan note No data available for this section [facility] noteNo InformationNortR[facility] Other Evaluation note* Diagnosis Onset Date Resolution Status Arthralgia acute Lumbar pain acute Type II diabetes mellitus ac [facility] Work Phone: Evaluation note* Diagnosis Onset Date Resolution Status Arthralgia acute Lumbar pain acute Type II diabetes mellitus ac [place] Bilateral hip pain [facility] Work Phone: Evaluation note* Diagnosis Onset Date Resolution Status Arthralgia acute Lumbar pain acute Type II diabetes mellitus ac [place] Bilateral hip pain acute Lumbar pain [facility] Work Phone: Evaluation note* Diagnosis Onset Date Resolution Status Submandibular abscess acute Chronic obstructive pulmonary disease, unspecified acute Esophageal abnormality acute Mass of left submandibular region [facility] Work Phone: Evaluation note* Diagnosis Dysphagia, unspecified type- Primary Black stools Nonspecific abnormal finding in stool contents Gastroesophageal reflux disease, unspecified whether esophagitis present Abnormal esophagram [facility] Diagnosis Onset Date Resolution Status Chronic obstructive pulmonary disease, unspecified acute Esophageal abnormality acute Mass of left submandibular region [facility] Work Phone: Evaluation note* Diagnosis Dysphagia, unspecified type Black stools Nonspecific abnormal finding in stool contents [facility] - Reported* Type Description Date Medical History Asthma Medical History skin cancer-lip Surgical History Left lung biopsy 1977 Surgical History L4 and L5 disc fusion 1984 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 Surgical History carpal tunnel release 2016 Surgical History tonsillectomy Hospitalization History 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 Hospitalization History pneumonia [facility] Other Hospital Discharge instructions No data available for this section [facility] instructionsAmbulatory Orders* Referral to ENT Time Frame: 03/18/24, Location: None [facility] Work Phone: InstructionsNot on filedocumented in this encounter [facility]ructions[facility] on filedocumented in this encounter [facility] SystemInstructionsNot on filedocumented in this encounter [facility] SystemProgress note No data available for this section [facility] Summary Purpose Family History No [...] 1 Epigastric abdominal pain (R10.13) Referral Organization [facility] omar Referring Provider First Name Jeremy Referring Provider Last Name Sona Referring Provider Specialty Family Medi cine Referred Organization [facility] Referred Provider Sai Martinez Referred Address ,[place], [place],[address] Referred Provider Specialty Surgery Referral Priority Routine General Notes Es Camilo 11:38:02 AM >received today, attachments made, notes locked, referral faxed Reason 01/28/23 Access Or tho - B shoulder pain L>R - hopes for injections. Diagnosis 1 Pain in right should er (M25.511) Referral Organization [facility] omar Referring Provider First Name Jeremy Referring Provider Last Name Sona Referring Provider Specialty [facility] rimidi Referred Organization [facility] Referred Provider Barbie Tapia Referred Address ,[place], [place],[address] Referred Provider Specialty Orthopaedic Surgery Referral Priority [...] in right should er (M25.511) Referral Organization [facility] omar Referring Provider First Name Jeremy Referring Provider Last Name Sona Referring Provider Specialty [facility] rimidi Referred Organization [facility] Referred Provider Barbie Tapia Referred Address ,[place], [place],[address] Referred Provider Specialty Orthopaedic Surgery Referral Priority [...] Esophageal abnormality Mass of left submandibular region Chief Complaint lip issues Unknown Reason for Visit Chronic obstructive pulmonary disease, unspecified Esophageal abnormality [...] call back reinier. Reason Comments New Patient Top Former - Other Reason Comments postive cologuard LAST COLONOSCOPY WAS OVER 20 YEARS AGO. Difficulty Swallowing Nausea Vomiting Abdominal Pain RUQ PAIN (unrecognized sect ion and content) No Status Records FoundNo Status Records FoundNo Status Records FoundNo Status Records FoundNo Status Records FoundNo Status Records FoundNo Status Records Found INFORMATION SOURCE (unrecogn ized section and content) DATE CREATED AUTHOR 12/04/2022 [facility] DATE CREATED AUTHOR AUTHOR'S ORGANIZ ATION 06/01/2023 [facility] DATE CREATED AUTHOR AUTHOR'S ORGANIZ ATION 04/08/2024 [facility] DATE CREATED AUTHOR AUTHOR'S ORGANIZ ATION [address] [facility] DATE CREATED AUTHOR AUTHOR'S ORGANIZ ATION 05/23/[address] [facility] DATE CREATED AUTHOR AUTHOR'S ORGANIZ ATION 05/29/2024 [facility] DATE CREATED AUTHOR AUTHOR'S ORGANIZ ATION 06/12/2024 [facility] Patient Care team informatio n (unrecognized section and content) Team Status: Active Member Role Status Dates Jeremy Magallanes MD Primary Care Provider Active Team Status: Inactive Member Role Status Dates Jeremy Magallanes MD Primary Care Provide r, Attending Provider Active Start: March 18, 2024 End: March 18, 2024 Team Status: Inactive Member Role Status Dates Jeremy Magallanes MD Primary Care Provider Active Start: June 03, 2024 End: June 03, 2024 Bill Henry DO Attending Provider Active Start: June 03, 2024 End: June 03, 2024 Team Status: Active Member Role [...] Provider Active Start : October 23, 2023 Strategies Analyst Relationship Specialty Start Date End Date Jeremy Magallanes MD [address] [place] [id number] PCP - General Family Medicine 01/23/23 Team Status: Inactive Member Role Status Dates Jeremy Magallanes MD Attending Provider Active St art: September 13, 2023 End: September 13, 2023 Strategies Analyst Relationship Specialty Start Date End Date Jeremy Magallanes MD [address] [place] [address] Referring Family Medicine 05/12/24 Strategies Analyst Relationship Specialty Start Date End Date Jeremy Magallanes MD [address] [place] [address] PCP - General Family Medicine 06/03/19 Strategies Analyst Relationship Specialty [place] [address] [place] [id number] PCP - General Family Medicine 06/03/19 Strategies Analyst Relationship Specialty [place] [address] [place] [id number] PCP - General Family Medicine 06/03/19 Strategies Analyst Relationship Specialty [place] [address] [place] [id number] PCP - General Family Medicine 06/03/19 Goals [...] or prosecute any alcohol or drug abuse patient.[facility] FOR RECORDS PERTAINING TO PATIENTS WHO ARE [...] BASED ON THE PRIMARY CLINICAL RECORDS. [facility] [employer] [facility]. provides no warranty or guarantee of the accuracy or completeness of information in this document.
--- NOTE | 2024-06-17 08:17 | P.CN_ITS ---
Consult Note: HPI Data of Consult Patient: known to practice within the last 3 years Consult date: 12/26/23 Requesting Physician: Janneth Villalta NP Primary Care Provider: Hannah Gallo MD Consult Narrative Reason for consult: f/u Narrative: Nicholas Ziegler a pleasant 63 year old male with an extensive history of chronic low back pain post lumbar surgery in 1984, left l4 hemilaminectomy according to MRI. Patient also has a significant history of bilateral hip and groin pain. Patient rating low back pain sharp ache pressure shooting, increasing to 10/10 with twisting pushing pulling standing too long transitioning walking activity stairs, pain improved slightly when lying in recliner. Patient has failed to benefit from tylenol, allergy to NSAIDs, failed oxycodone-acetaminophen 5- 325mgs, hydrocodone-acetaminophen 10mgs, gabapentin unknown dosage. . Patient has failed to benefit from PT and HEP greater than 6 weeks, increases his pain. Previously a patient at [facility] receiving epidurals q2 months for 7 years per patient, last MAGAN 07/11 with benefit. Currently tolerating tylenol #3 TID PRN without side effects, has been utilizing 10mg baclofen HS could not tolerate daytime dosing. Recent bilateral L4-5 TFESI providing mild relief. Presents for TPI cc:: CC: Janneth Villalta NP Review of Systems 2 ROS0 Status of ROS 10 or more systems reviewed and unremark able except as noted in history and below Musculoskeletal Reports: back pain and extremity pain PFSH PFSH Medical History Melanoma ?C43.9 - Malignant melanoma of skin, unspecified (ICD-10) Tobacco user ?Z72.0 - Tobacco use (ICD-10) Type 2 diabetes mellitus with hyperglycemia ?E11.65 - Type 2 diabetes mellitus with hyperglycemia (ICD-10) Acute exacerbation of chronic obstructive pulmonary disease (COPD) ?J44.1 - Chronic obstructive pulmonary disease with (acute) exacerbation (ICD-10) Lumbar degenerative disc disease ?M51.36 - Other intervertebral disc degeneration, lumbar region (ICD-10) Influenza ?J11.1 - Influenza due to unidentified influenza virus with other respiratory manifestations (ICD-10) Acute bronchospasm ?J98.01 - Acute bronchospasm (ICD-10) Postoperative pain, acute, shoulder ?G89.18 - Other acute postprocedural pain (ICD-10) ?M25.519 - Pain in unspecified shoulder (ICD-10) Fever ?R50.9 - Fever, unspecified (ICD-10) Acute pain of right shoulder ?M25.511 - Pain in right shoulder (ICD-10) Rotator cuff arthropathy of right shoulder ?M12.811 - Other specific arthropathies, not elsewhere classified, right shoulder (ICD-10) Diabetes ?E11.9 - Type 2 diabetes mellitus without complications (ICD-10) COPD (chronic obstructive pulmonary disease) ?J44.9 - Chronic obstructive pulmonary disease, unspecified (ICD-10) Surgical History H/O colonoscopy ?Z98.890 - Other specified postprocedural states (ICD-10) History of carpal tunnel release ?Z98.890 - Other specified postprocedural states (ICD-10) H/O lumbosacral spine surgery ?Z98.890 - Other specified postprocedural states (ICD-10) S/P right rotator cuff repair ?Z98.890 - Other specified postprocedural states (ICD-10) Family History Other Family history of COPD (chronic obstructive pulmonary disease) Family history of cancer Family history of hypertension Social History Within the past year, how often did you have a drink containing alcohol: never Score interpretation: A score less than 4 is consistent with normal alcohol consumption. Smoking status: Current every day smoker Non-prescribed substance use: denies use Previous occupational history: retired Highest level of school completed/degree received: GED or equivalent Are you now , , , , never or living with a partner: In a typical week, how many times do you talk on the telephone with family, friends, or neighbors: 3 or more times per week How often do you get together with friends or relatives: 3 or more times per week How often do you attend caodaism or hinduism services: never Do you belong to any clubs or organizations such as caodaism groups unions, fraternal or athletic groups, or school groups: no Total score: 2 Score interpretation: A score of greater than or equal to 2 indicates the lowest level of social isolation. Little interest or pleasure in doing things: not at all Feeling down, depressed, or hopeless: not at all Feel stressed/tense/nervous/anxious/difficulty sleeping: not at all Do you think of yourself as: straight/heterosexual Gender Identity: male Meds Home Medications and Allergies Home Medications ?Medication ?Instructions ?Recorded ?Confirmed ?Type glipizide 5 mg-metformin 500 mg 1 tab PO BID 08/23/23 06/03/24 History tablet lancets (Accu-Chek Fastclix Lancet 09/08/23 09/08/23 History Drum) acetaminophen 300 mg-codeine 30 mg See Rx Instructions .Route 05/07/24 06/03/24 Rx tablet .COMPLEX PRN pain #180 tabs baclofen 10 mg tablet 10 mg PO TID PRN muscle spasm 05/08/24 06/03/24 History acetaminophen 300 mg-codeine 30 mg See Rx Instructions .Route 05/27/24 06/03/24 Rx tablet .COMPLEX PRN pain #180 tabs albuterol sulfate 90 mcg/actuation 2 puff inhalation Q6H PRN 06/01/24 06/03/24 History aerosol inhaler shortness of breath or wheezing omeprazole 40 mg capsule,delayed 40 mg PO BID 06/01/24 06/03/24 History release ondansetron 4 mg disintegrating 4 mg PO DAILY 06/01/24 06/01/24 History tablet Allergies Allergy/AdvReac Type Severity Reaction Status Date / Time fentanyl Allergy Intermediate Hives Verified 06/03/24 09:19 ofloxacin Allergy Intermediate HIVES Verified 05/18/24 07:19 olodaterol (From Stiolto Allergy Intermediate SHORTNESS Verified 05/18/24 07:19 Respimat) OF BREATH tiotropium (From Stiolto Allergy Intermediate SHORTNESS Verified 05/18/24 07:19 Respimat) OF BREATH zafirlukast Allergy Intermediate Hives Verified 05/18/24 07:19 ibuprofen (From Motrin) AdvReac Mild Hives Verified 05/18/24 07:19 Exam Constitutional Documenting provider has reviewed patient's vital signs: yes Common normals: no apparent distress, oriented x3, healthy appearing, alert and well nourished General appearance: cooperative HENMT Common normals: normocephalic, hearing grossly normal bilaterally and moist oral mucous membranes Head and scalp: normocephalic Eye Common normals: PERRL Pupil: PERRL Neck & C-Spine Common normals: full ROM General: normal visual inspection Chest Common normals: inspection of chest normal Respiratory Common normals: normal respiratory effort, no retractions and no use of accessory muscles Back & Pelvis Lumbar spine/lower back: ROM limited, pain with ROM, lumbar spinal tenderness, paraspinal muscle tenderness, paraspinal muscle spasm, straight leg raise positive right and straight leg raise positive left Sacroiliac joints: SI joint(s) abnormal Other: sensation inact to bilateral L4,5 right positive hailee(patricks), gaenslens, thigh thrust, compression test positive facet loading strength 5/5 in BLE tirgger points and myofascial spasming noted below Back image (male): 2 1. 2. Extremity Common normals: normal to inspection and full ROM Right lower extremity: hip joint Left lower extremity: hip joint Other: significant increase in hip/groin pain with internal and external rotation of bilateral hips, right greater than left Neuro Common normals: oriented x3, CN's II-XII intact bilaterally, moves all extremities, no focal motor deficits, no sensory deficits noted and deep tendon reflexes 2+ bilaterally Sensorium/orientation: alert Gait (neuro): antalgic Motor exam: strength 5/5 throughout and no movement abnormalities noted Psych Common normals: mental status grossly normal, thought process normal, cooperative, affect normal, speech normal and activity/motor behavior normal Speech: normal speech Thought process: normal thought process Assessment and Plan Assessment and Plan (1) Myalgia, other site: Assessment and Plan: OPERATION:?bilateral paralumbar Trigger Point Injection. ANESTHESIA:?Local COMPLICATIONS:?None. DESCRIPTION OF PROCEDURE:?The procedure risks, hazards and alternatives were discussed with the patient and a proper consent was obtained. The area over the myofascial spasm was prepped with alcohol utilizing sterile technique. After isolating it between two palpating fingertips a 25-gauge 1.5 needle was placed in the center of the myofascial spasms and a negative aspiration was performed. Then 1 cc of lidocaine 2%, bupivacaine 0.25% and triamcinolone 2mg was injected into each trigger point. The patient tolerated the procedure well without any apparent difficulties or complications. They were feeling relief by the time the block had set. (2) Failed back syndrome: Assessment and Plan: SCS handout provided Plan TPI performed as noted change baclofen 5-10mg TID PRN encouraged heat/ice continue medications f/u 1 month
== END 2024-06-17 07:44 | disposition home or self-care (01) ==
LOC: PM 07:47
PROVIDERS: PCP Family Medicine; Visit Provider Nurse Practitioner
DX: M79.18 Myalgia, other site (principal); M96.1 Postlaminectomy syndrome, not elsewhere classified
CPT/HCPCS: 20552

== ENCOUNTER 2024-07-17 22:43 | Emergency (ER) | payer MEDICARE, SELFPAY ==
--- OUTSIDE RECORDS SUMMARY | 2024-07-17 22:48 | XMS_ITS | CCD ---
Author Organization [facility] Care Team Providers Care Hide Grader Name Role Phone Ronnie Kesha Unavailable Chepe Harriet Unavailable Jeremy Magallanes Unavailable SONA, DR JEREMY Jovel Admitting Unavailable MAGALLANES, DR JEREMY Jovel Attending Unavailable MAGALLANES, DR JEREMY Jovel Primary Care Unavailable MAGALLANES, DR JEREMY Jovel Consulting Unavailable TAVERASRUBI Consulting Unavailable OLEXA, KESHA Admitting Unavailable OLEXA, KESHA Attending Unavailable MAGALLANES, DR JEREMY Jovel Primary Care Unavailable WEST, DR BARBIE [...] JEREMY Jovel Primary Care Unavailable MAGALLANES, DR JERMEY Jovel Primary Care Unavailable HAY ., DR DESIR Admitting Unavailable VANEC ., DR DESIR Attending Unavailable HAY ., DR DESIR Consulting Unavailable MAGALLANES, DR JEREMY Jovel Primary Care Unavailable BREE, DR CARLOS Drummond Admitting Unavailable BREE, DR CARLOS Drummond Attending Unavailable BREE, DR CARLOS Drummond Consulting Unavailable MILLIE, HOSSATimothy Consulting Unavailable JEREMY MAGALLANES Primary Care Physician Edin, Barbie Tellez Referring Unavailable Pocsophia, Barbie Tellez Attending Unavailable Pocsophia, Barbie Tellez Admitting Unavailable Jeremy Magallanes MD Primary Care Provider [phone] POCOS, BARBIE Tellez Attending Unavailable POCOS, BARBIE Tellez Referring Unavailable POCOS, HI Attending Unavailable MALATHI SANCHEZ Attending Unavailable JEREMY MAGALLANES Referring Unavailable BARBIE TAPIA Attending Unavailable Giedraitis , Zacarias Miranda Attending Unavailable Giedraitis , Andgloria Miranda Attending Unavailable Giedraitis , Andrius Miranda Attending Unavailable Giedraitis , Andrius Miranda Attending Unavailable Giedraitis , Andrius Miranda Attending Unavailable Giedraitis , Zacarias Miranda Attending Unavailable Jeremy Magallanes MD Unavailable [phone] PRIYANKA VAZ Attending Unavailable JEREMY MAGALLANES Referring Unavailable JEREMY MAGALLANES Primary Care Unavailable Jeremy Magallanes MD Primary Care Provider [phone] MD Jeremy Magallanes Primary Care Provider [phone] DO Bill Henry Attending Provider Jeremy Magallanes Primary Care Unavailable Bill Henry Attending Unavailable Bill Henry Admitting Unavailable Allergies Allergy Classification Reported Allergen(s) Allergy Type Date of Onset Reaction(s) Facility (20 sources) Ibuprofen Drug Allergy [facility] Other (20 sources) olodaterol / tiotropium Drug Allergy shortness of breath [facility] Other (20 sources) CT Scan dye Propensity to adverse reactions [facility] [employer] [facility] Other (9 sources) Ibuprofen; Translations: [IBUPROFEN] Drug Allergy 08-19-18 80 [facility] Repository (2 sources) Iodine (And Iodine Containting Drugs) Drug allergy (disorder) 09-07-19 16 [facility] Repository (1 source) NSAIDs Drug allergy (disorder) [facility] Repository (20 sources) fentaNYL Drug Allergy 12-05-19 24 Unknown, [facility] (8 sources) Ibuprofen Drug Allergy 01-15-20 15 Rash, [facility] (20 sources) Ofloxacin Drug Allergy 12-05-19 24 Unknown, [facility] (3 sources) zafirlukast Drug Allergy 05-29-20 15 Unknown [facility] Other (20 sources) Zafirlukast *ANTIASTHMATIC AND BRONCHODILATOR AGEN Propensity to adverse reactions Unknown [facility] Other (20 sources) Ibuprofen & Diet Manage Prod *ANALGESICS - ANTI-IN Propensity to adverse reactions Unknown [facility] Other (3 sources) Allergies Reconciled Propensity to adverse reactions Unknown [facility] Other (20 sources) Iodinated contrast media (substance) Drug allergy 06-03-20 19 Rash, Hives [employer] [facility] Other (3 sources) patient allergy list reviewed by nurse or physicia Propensity to adverse reactions 10-05-19 16 Comment:Done [facility] Other (6 sources) olodaterol Drug Allergy 12-05-19 24 shortness of breath [facility] (6 sources) tiotropium Drug Allergy 12-05-19 24 shortness of breath [facility] (7 sources) Iodinated Contrast Media; Translations: [IODINATED CONTRAST MEDIA] Allergy to substance 06-03-20 19 [facility] (6 sources) Ibuprofen & Diet Manage Prod * Allergy to substance 12-04-19 [facility] (6 sources) Zafirlukast *ANTIASTHMATIC AND Allergy to substance 12-04-19 [facility] Medications Current Medications Medication Drug Class(es) [...] Sep, Active take 2 tablets by mo wah every four hours as needed acetaminophen-codeine (TYLENOL [...] as needed Orally every 6 hrs Active [id number] actuat albuterol 0.09 mg/actuat metered dose [...] 12 hrs for 10 day(s) Oct, Active Azithromycin (20 sources) Macrolide Antimicrobial Start: 06-17-2024 Azithromycin Active 0 PO .COMPLEX June 17, 2024 12:00am For 250 mg dose pack: take 500 mg today (day 1), then 250 mg for 4 days (days 2-5) PO Start: 12-20-2023 End: 03-03-2024 Azithromycin Discontinued 0 [...] 4 more days for 5 Nov, Active gabapentin 800 mg oral tablet (1 source) Anti-epileptic Agent Start: 08-31-2023 gabapentin (Neurontin) 800 MG tablet glipiZIDE 5 mg / metFORMIN hydrochloride 500 mg oral tablet (20 sources) Biguanide, Sulfonylurea Start: 07-19-2023 take 2 tablets by mouth twice daily Glipizide-Metform in Active TAB PO December 04, 2023 12:00am [employer] tab Orally bid; Note: Source Status: Start; Refills: 1; Qty: 360 Tablet; Provider: Sona Young ( ) Start: 07-19-2023 take 2 tablets by mo [facility] in the morning glipiZIDE-metFORMIN (Metaglip) 5-500 MG tablet Take 2 tablets by mouth in the morning and 2 tablets before bedtime. 0 07/19/2023 [facility] glipiZIDE-metFORMIN HCl 5-500 MG 1 [...] Active ondansetron 4 mg disintegrating oral tablet (6 sources) Serotonin-3 Receptor Antagonist Start: 04-27-2024 ondansetron ODT (ZOFRAN ODT) 4 mg disintegrating tablet Dissolve 1 tablet (4 mg total) on tongue once. 04/27/2024 Active Start: 04-27-2024 take 4 mg by mouth e very eight hours Ondansetron Active 4 MG PO Q8H April 27, 2024 12:00am predniSONE 20 mg oral tablet (15 sources) Start: 06-17-2024 take 20 mg by mouth twice daily Prednisone Active 20 MG PO Twice daily June 17, 2024 12:00am Start: 04-30-2023 predniSONE 10 MG 4 tabs po daily x 2 days, 3 tabs daily x 2 days, 2 tabs daily x 2 days, 1 tab daily x 2 days Orally Once a day for 8 Apr, Active Start: 11-23-2022 take 2 tablets by [facility] every twenty-four hours predniSONE 20 MG 2 [...] days May, Active Start: 2023 HYDROcodone-ac etaminophen ([place]) 10-325 MG tablet Start: 2023 take 1 [...] 30 mg oral tablet (5 sources) Uncompetitive T-rcdlhl-P-aspartate Receptor Antagonist, Sigma-1 Agonist Start: 05-26-2021 take 1 tablet by mouth every eight hours [place] DMT 30-30 MG 1 tablet Orally every 8 hours for 7 days May, Not-Taking DULoxetine 60 mg delayed release oral capsule (16 sources) Serotonin and Norepinephrine Reuptake Inhibitor Start: [...] 8:39am Start: 02-20-2023 take 1 capsule by [facility] every twenty-four hours Cymbalta 60 MG 1 capsule Orally Once a day for 30 days Feb, Active Methylprednisolone (18 sources) Corticosteroid Start: 12-06-2023 End: 12-17-2023 Methylprednisolone [...] Cq) 14 mg/24 hr patch 24 hour (4 sources) Start: 03-03-2024 End: 03-18-2024 apply 1 [...] Problem Date Documented Da te Episodic/Chronic Abdominal hernia (2 sources) Hiatal hernia; Translations: [Diaphragmatic hernia without obstruction or gangrene] 06-17-2024 Episodic Abdominal pain (20 sources) Right upper quadrant [...] Onset: 9 Chronic Diabetes mellitus without complication (13 sources) Type 2 diabetes mellitus without complications; Translations: [Type 2 diabetes mellitus without complication] Onset: 7 12-05-2023 Chronic Diseases of mouth; excluding dental (4 sources) Abscess of submandibular region; Translations: [Cellulitis and abscess of mouth] 03-04-2024 Episodic Diseases of white blood cells (20 sources) Leukocytosis; Translations: [Other elevated white blood cell count] Chronic Disorders of teeth and jaw (3 sources) Jaw pain; Translations: [Jaw pain] Episodic Esophageal disorders (20 sources) Gastroesophageal reflux disease without esophagitis; Translations: [Gastro-esophageal reflux disease without esophagitis] Onset: 4 05-27-2024 Chronic Esophageal disorders (5 sources) Disorder of esophagus; Translations: [Disease of [...] other serum enzymes] Episodic Other liver diseases (2 sources) Liver mass; Translations: [Hepatomegaly, not elsewhere classified] [...] right shoulder Episodic Other non-traumatic joint disorders (6 sources) Joint pain; Translations: [Pain in unspecified joint] 12-05-2023 Episodic Other non-traumatic joint disorders (3 sources) Pain in unspecified joint; Translations: [Pain in joint, site unspecified] 12-05-2023 Episodic Other non-traumatic joint disorders (5 sources) Hip pain; Translations: [Pain in right [...] digestive tract] 05-27-2024 Episodic Other skin disorders (3 sources) Mass of submandibular region; Translations: [Localized [...] Spondylosis; intervertebral disc disorders; other back problems (16 sources) Radiculopathy, lumbar region; Translations: [Dorsalgia, unspecified] [...] Other fdc (current) drug therapy; Translations: [OTH WOUND CARE SPECIALIST CURRENT DRUG THERAPY] Onset: 12-29-2021 Episodic [...] Test Name Value Interpretation Reference Range Facility [facility] [place] 06-03-2024 [facility] No Panel InformationOrdered By: Rosalia Shea on 06-03-2024 [facility] No Panel InformationOrdered By: Bill Henry on 06-03-2024 Miscellaneous Pathology Test See comment [facility] Comment on above: See report. Scanned copy available in EMR. No Panel Informationon 06-03 Helicobacter pylori Urease Test Negative [facility] Pathology Request for Lab Co rpon 06-03-2024 Pathology Request for Lab Raymond Normal [facility] Comment on above: Order Comment: PATHO LOGY GI SPECIMEN Result Comment: See report. Scanned copy available in EMR. PERFORMED BY: [place] [address] PATHOLOGIST LIQUOR RECTIFIER JON PONCE M.D. Performed By: #### P ATH TO [facility] #### [address] [place] [facility]-14-20[id number] NICHOLAS CRAIG ([id number]) 1960 M Date Time Provider Department 05/14/24 MERAZ, AMEYA [id number] During your visit today, we recorded the following information about you: Keily Martines 05/14/2024 1:11 PM Signed Referral was sent from [facility] for new consult with Dr Meraz Please see below and advise Vivian Morley 05/15/2024 11:54 AM Addendum Consult from Dr. Jeremy Magallanes (Internal Medicine) [facility] Referral received from PCP for [...] Reviewed Reason for Visit: New Patient [172] Automatic Mounter - Other [3602] Problem List As Of Date: 05/14/2024 (None) Encounter Status:Closed by VIVIAN MORLEY on 05/21/24 [facility] Basophils Auto (Bld) [#/Vol] on 02-27-2024 Basophils (Bld) [#/Vol] 0.1 10 3/uL 0.0-0.1 [facility] Basophils/100 WBC Auto (Bld) on 02-27-2024 Basophils/100 WBC (Bld) 0.5 % 0.2-2.0 [facility] Eosinophils/100 WBC Auto (Bl d)on 02-27-2024 Eosinophils/100 WBC (Bld) 2.5 % 0.9-7.0 [facility] Erythrocyte distribution wid th Auto (RBC) [Ratio]on 02-27-2024 Erythrocyte distribution width (RBC) [Ratio] 13.5 % 11.0-15.0 [facility] Estimated glomerular filtrat ion rate (GFR) non- Americanon 02-27-2024 GFR/1.73 sq M.predicted among non-blacks MDRD (S/P/Bld) [Vol rate/Area] mL/min/{1.73_m2} >=60 [facility] Hematocrit Auto (Bld) [Volum e fraction]on 02-27-2024 Hematocrit (Bld) [Volume fraction] 47.1 % 42.0-54.0 [facility] Hemoglobin [Mass/volume] in Bloodon 02-27-2024 Hemoglobin (Bld) [Mass/Vol] 15.5 g/dL 14.0-18.0 [facility] Laboratory - Chemistry and C hemistry - challengeon 02-27-2024 Calcium [Mass/Vol] 8.9 mg/dL 8.5-10.1 [facility] Chloride [Moles/Vol] 98 mmol/L 98-107 [facility] CO2 [Moles/Vol] 28.1 mmol/L 21.0-32.0 [facility] Creatinine [Mass/Vol] 0.86 mg/dL 0.70-1.30 [facility] GFR/1.73 sq M.predicted MDRD (S/P/Bld) [Vol rate/Area] mL/min/{1.73_m2} >=60 [facility] Glucose [Mass/Vol] 237 mg/dL High 74-106 [facility] Lactate [Moles/Vol] 1.3 mmol/L 0.4-2.0 [facility] Potassium [Moles/Vol] 4.4 mmol/L 3.5-5.1 [facility] Sodium [Moles/Vol] 130 mmol/L Low 136-145 [facility] Urea nitrogen [Mass/Vol] 21.0 mg/dL High 7.0-18.0 [facility] Urea nitrogen/Creatinine [Mass ratio] 24.4 mg/mg [facility] Laboratory - Hematology and Cell countson 02-27-2024 Immature granulocytes/100 WBC (Bld) 0.3 % 0.0-0.5 [facility] Leukocytes [#/volume] correc jean claude for nucleated erythrocytes in Blood by Automated counon 02-27-2024 WBC corrected for nucl RBC Auto (Bld) [#/Vol] 9.3 10 3/uL 4.0-11.0 [facility] Lymphocytes Auto (Bld) [#/Vo l]on 02-27-2024 Lymphocytes (Bld) [#/Vol] 2.4 10 3/uL 1.2-3.8 [facility] Lymphocytes/100 WBC Auto (Bl d)on 02-27-2024 Lymphocytes/100 WBC (Bld) 25.5 % 20.5-60.0 [facility] MCH Auto (RBC) [Entitic mass ]on 02-27-2024 MCH (RBC) [Entitic mass] 29.1 pg 25.9-34.0 [facility] MCHC Auto (RBC) [Mass/Vol]on 02-27-2024 MCHC (RBC) [Mass/Vol] 32.9 g/dL 29.9-35.2 [facility] MCV Auto (RBC) [Entitic vol] on 02-27-2024 MCV (RBC) [Entitic vol] 88.5 fL 80.0-94.0 [facility] Monocytes Auto (Bld) [#/Vol] on 02-27-2024 Monocytes (Bld) [#/Vol] 1.1 10 3/uL High 0.3-0.8 [facility] Monocytes/100 WBC Auto (Bld) on 02-27-2024 Monocytes/100 WBC (Bld) 12.0 % 1.7-12.0 [facility] Neutrophils Auto (Bld) [#/Vo l]on 02-27-2024 Neutrophils (Bld) [#/Vol] 5.5 10 3/uL 1.4-6.5 [facility] Neutrophils/100 WBC Auto (Bl d)on 02-27-2024 Neutrophils/100 WBC (Bld) 59.2 % 43.0-75.0 [facility] No Panel Informationon 02-26 Eosinophils # (Auto) 0.2 10 3/uL 0.0-0.7 [facility] Immature Granulocyte # (Auto) 0.03 10 3/uL 0.00-0.03 [facility] Platelet mean volume Auto (B ld) [Entitic vol]on 02-27-2024 Platelet mean volume (Bld) [Entitic vol] 8.8 fL Low 9.5-13.5 [facility] Platelets Auto (Bld) [#/Vol] on 02-27-2024 Platelets (Bld) [#/Vol] 288 10 3/uL 150-450 [facility] RBC Auto (Bld) [#/Vol]on RBC (Bld) [#/Vol] 5.32 10 6/uL 4.70-6.10 [facility] Serum or plasma anion gap de terminationon 02-27-2024 Anion gap [Moles/Vol] 8.3 mmol/L [facility] Basophils Auto (Bld) [#/Vol] on 12-05-2023 Basophils (Bld) [#/Vol] 0.1 10 3/uL 0.0-0.1 [facility] Basophils/100 WBC Auto (Bld) on 12-05-2023 Basophils/100 WBC (Bld) 0.9 % 0.2-2.0 [facility] Eosinophils/100 WBC Auto (Bl d)on 12-05-2023 Eosinophils/100 WBC (Bld) 2.7 % 0.9-7.0 [facility] Erythrocyte distribution wid th Auto (RBC) [Ratio]on 12-05-2023 Erythrocyte distribution width (RBC) [Ratio] 13.1 % 11.0-15.0 [facility] Estimated glomerular filtrat ion rate (GFR) non- Americanon 12-05-2023 GFR/1.73 sq M.predicted among non-blacks MDRD (S/P/Bld) [Vol rate/Area] mL/min/{1.73_m2} >=60 [facility] Glucose mean value [Mass/vol ume] in Blood Estimated from glycated hemoglobinon 12-05-2023 Average glucose Estimated from glycated hemoglobin (Bld) [Mass/Vol] 171 mg/dL [facility] Hematocrit Auto (Bld) [Volum e fraction]on 12-05-2023 Hematocrit (Bld) [Volume fraction] 48.9 % 42.0-54.0 [facility] Hemoglobin [Mass/volume] in Bloodon 12-05-2023 Hemoglobin (Bld) [Mass/Vol] 16.0 g/dL 14.0-18.0 [facility] Laboratory - Chemistry and C hemistry - challengeon 12-05-2023 Calcium [Mass/Vol] 9.7 mg/dL 8.5-10.1 [facility] Chloride [Moles/Vol] 102 mmol/L 98-107 [facility] CO2 [Moles/Vol] 27.6 mmol/L 21.0-32.0 [facility] Creatinine [Mass/Vol] 1.01 mg/dL 0.70-1.30 [facility] GFR/1.73 sq M.predicted MDRD (S/P/Bld) [Vol rate/Area] mL/min/{1.73_m2} >=60 [facility] Glucose [Mass/Vol] 156 mg/dL High 74-106 [facility] Potassium [Moles/Vol] 4.4 mmol/L 3.5-5.1 [facility] Sodium [Moles/Vol] 139 mmol/L 136-145 [facility] Urea nitrogen [Mass/Vol] 13.0 mg/dL 7.0-18.0 [facility] Urea nitrogen/Creatinine [Mass ratio] 12.9 mg/mg [facility] Laboratory - Hematology and Cell countson 12-05-2023 ESR (Bld) [Velocity] 17 mm/h <=20 [facility] HbA1c (Bld) [Mass fraction] 7.6 % High 4.5-6.2 [facility] Comment on above: ADA RECOMMENDED LIMI T 4.0 - 6.0ADA THERAPEUTIC TARGET < 7.0ACTION SUGGESTED> 7.0 Immature granulocytes/100 WBC (Bld) 0.4 % 0.0-0.5 [facility] Leukocytes [#/volume] correc jean claude for nucleated erythrocytes in Blood by Automated counon 12-05-2023 WBC corrected for nucl RBC Auto (Bld) [#/Vol] 7.7 10 3/uL 4.0-11.0 [facility] Lymphocytes Auto (Bld) [#/Vo l]on 12-05-2023 Lymphocytes (Bld) [#/Vol] 2.4 10 3/uL 1.2-3.8 [facility] Lymphocytes/100 WBC Auto (Bl d)on 12-05-2023 Lymphocytes/100 WBC (Bld) 31.2 % 20.5-60.0 [facility] MCH Auto (RBC) [Entitic mass ]on 12-05-2023 MCH (RBC) [Entitic mass] 28.5 pg 25.9-34.0 [facility] MCHC Auto (RBC) [Mass/Vol]on 12-05-2023 MCHC (RBC) [Mass/Vol] 32.7 g/dL 29.9-35.2 [facility] MCV Auto (RBC) [Entitic vol] on 12-05-2023 MCV (RBC) [Entitic vol] 87.0 fL 80.0-94.0 [facility] Monocytes Auto (Bld) [#/Vol] on 12-05-2023 Monocytes (Bld) [#/Vol] 0.7 10 3/uL 0.3-0.8 [facility] Monocytes/100 WBC Auto (Bld) on 12-05-2023 Monocytes/100 WBC (Bld) 9.5 % 1.7-12.0 [facility] Neutrophils Auto (Bld) [#/Vo l]on 12-05-2023 Neutrophils (Bld) [#/Vol] 4.2 10 3/uL 1.4-6.5 [facility] Neutrophils/100 WBC Auto (Bl d)on 12-05-2023 Neutrophils/100 WBC (Bld) 55.3 % 43.0-75.0 [facility] No Panel Informationon 12-04 Eosinophils # (Auto) 0.2 10 3/uL 0.0-0.7 [facility] Immature Granulocyte # (Auto) 0.03 10 3/uL 0.00-0.03 [facility] Platelet mean volume Auto (B ld) [Entitic vol]on 12-05-2023 Platelet mean volume (Bld) [Entitic vol] 8.6 fL Low 9.5-13.5 [facility] Platelets Auto (Bld) [#/Vol] on 12-05-2023 Platelets (Bld) [#/Vol] 330 10 3/uL 150-450 [facility] RBC Auto (Bld) [#/Vol]on RBC (Bld) [#/Vol] 5.62 10 6/uL 4.70-6.10 [facility] Serum or plasma anion gap de terminationon 12-05-2023 Anion gap [Moles/Vol] 13.8 mmol/L [facility] Magnesiumon 07-02-2023 Magnesium [Mass/Vol] 2.4284010 mg/dL Normal 1.8- 2.4 mg/dL [facility] Other Magnesium see note [employer] [facility] Other MRI Shoulder w/o Contrast [facility] 05-31-2023 MRI Shoulder w/o Contrast [...] Treatmenton 05-19 Consent for Treatment [id number] #1.00TIFF Normal [facility] RAD - MRI Screening Formon 1 RAD - MRI Screening Form [id number]# 1.00TIFF Normal [facility] Physician Orderon 05-09-2023 Physician Order [id number] 4#1.00CD:127 Normal [facility] XR CHEST 2 [facility] LUNG CANCER SCREENINGon 1 09-20-2021 CT [...] YEISON NAVAS Date: 2022-07-20 07:18 Normal [facility] CBC AUTO DIFFon 06-07-2022 BASO # 0.1 103/ul Normal 0.0-0.1 [facility] Comment on above: Performed By: #### C BC #### [facility] [address] [place] [address] Dr. Eran Chacon Basophils/100 WBC (Bld) 0.6 % Normal 0.2-2.0 [facility] Comment on above: Performed By: #### C BC #### [facility] [address] [place] [address] Dr. Eran Chacon EO # 0.3 103/ul Normal 0.0-0.7 [facility] Comment on above: Performed By: #### C BC #### [facility] [address] [address] [address] Eran Chacon Eosinophils/100 WBC (Bld) 3.3 % Normal 0.9-7.0 [facility] Comment on above: Performed By: #### C BC #### [facility] [address] [place] [address] Dr. Eran Chacon Erythrocyte distribution width (RBC) [Ratio] 12.9 % Normal 11.0-15.0 [facility] Comment on above: Performed By: #### C BC #### [facility] [address] [place] [address] Dr. Eran Chacon Hematocrit (Bld) [Volume fraction] 47.7 % Normal 42.0-54.0 [facility] Comment on above: Performed By: #### C BC #### [facility] [address] [place] [address] Dr. Eran Chacon Hemoglobin (Bld) [Mass/Vol] 15.9 g/dL Normal 14.0-18.0 [facility] Comment on above: Performed By: #### C BC #### [facility] [address] [place] [address] Dr. Eran Chacon IG # 0.02 10e3/ul Normal 0.00-0.03 [facility] Comment on above: Performed By: #### C BC #### [facility] [address] [place] [address] Dr. Eran Chacon IG % 0.2 % Normal 0.0-0.5 [facility] Comment on above: Performed By: #### C BC #### [facility] [address] [place] [address] Dr. Eran Chacon LYMPH # 3.4 103/ul Normal 1.2-3.8 [facility] Comment on above: Performed By: #### C BC #### [facility] [address] [place] [address] Dr. Eran Chacon Lymphocytes/100 WBC (Bld) 34.5 % Normal 20.5-60.0 [facility] Comment on above: Performed By: #### C BC #### [facility] [address] [place] [address] Dr. Eran Chacon MANUAL DIFF REQ NO Normal [facility] Comment on above: Performed By: #### C BC #### [facility] [address] [place] [address] Dr. Eran Chacon MCH (RBC) [Entitic mass] 29.6 pg Normal 25.9-34.0 [facility] Comment on above: Performed By: #### C BC #### [facility] [address] [address] [address] Eran Chacon MCHC (RBC) [Mass/Vol] 33.3 g/dL Normal 29.9-35.2 [facility] Comment on above: Performed By: #### C BC #### [facility] [address] [address] [address] Eran Chacon MCV (RBC) [Entitic vol] 88.8 fL Normal 80.0-94.0 [facility] Comment on above: Performed By: #### C BC #### [facility] [address] [address] [address] Eran Chacon MONO # 0.9 103/ul Critically high 0.3-0.8 [facility] Comment on above: Performed By: #### C BC #### [facility] [address] [place] [address] Dr. Eran Chacon Monocytes/100 WBC (Bld) 9.3 % Normal 1.7-12.0 [facility] Comment on above: Performed By: #### C BC #### [facility] [address] [address] [address] Eran Chacon NEUT # 5.2 103/ul Normal 1.4-6.5 [facility] Comment on above: Performed By: #### C BC #### [facility] [address] [place] [address] Dr. Eran Chacon Neutrophils/100 WBC (Bld) 52.1 % Normal 43.0-75.0 [facility] [facility] Comment on above: Performed By: #### C BC #### [facility] [address] [address] [address] Eran Chacon Platelet mean volume (Bld) [Entitic vol] 8.8 fL Critically low 9.5-13.5 [facility] Comment on above: Performed By: #### C BC #### [facility] [address] [place] [address] Dr. Eran Chacon PLT 287 103/ul Normal 150-450 [facility] Comment on above: Performed By: #### C BC #### [facility] [address] [place] [address] Dr. Eran Chacon RBC 5.37 106/ul Normal 4.70-6.10 [facility] Comment on above: Performed By: #### C BC #### [facility] [address] [place] [address] Dr. Eran Chacon WBC 9.9 103/ul Normal 4.0-11.0 [facility] Comment on above: Performed By: #### C BC #### [facility] [address] [place] [address] Dr. Eran Chacon ER URINE PROFILEon 2 Bilirubin Ql (U) Negative Normal NEGATIVE [facility] Comment on above: Performed By: #### BISHNU BATESRO #### [facility] [address] [place] [address] Dr. Eran Chacon Clarity (U) CLEAR Normal CLEAR [facility] Comment on above: Performed By: #### BISHNU BATESRO #### [facility] [address] [place] [address] Dr. Eran Chacon Color (U) YELLOW Normal YELLOW [facility] Comment on above: Performed By: #### BISHNU BATESRO #### [facility] [address] [place] [address] Dr. Eran GATES A micrscopic examination will be performed if indicated. Normal [facility] Comment on above: Performed By: #### BISHNU BATESRO #### [facility] [address] [place] [address] Dr. Eran Chacon Glucose Ql (U) 500 mg/dl Abnormal NEGATIVE [facility] Comment on above: Performed By: #### BISHNU BATESRO #### [facility] [address] [place] [address] Dr. Eran Chacon Hemoglobin Ql (U) TRACE-INTACT Abnormal NEGATIVE [facility] Comment on above: Performed By: #### BISHNU BATESRO #### [facility] [address] [place] [address] Dr. Eran Chacon Ketones Ql (U) Negative Normal NEGATIVE [facility] Comment on above: Performed By: #### Med SHER UMICRO #### [facility] [address] [place] [address] Dr. Eran Chacon LEUKOCYTES Negative Normal NEGATIVE [facility] Comment on above: Performed By: #### Med SHER, UMICRO #### [facility] [address] [place] [address] Dr. Eran Chacon Nitrite Ql (U) Negative Normal NEGATIVE [facility] Comment on above: Performed By: #### Med SHER UMICRO #### [facility] [address] [place] [address] Dr. Eran Chacon pH (U) 6.0 [pH] Normal 5-9 [facility] Comment on above: Performed By: #### Med SHER UMICRO #### [facility] [address] [place] [address] Dr. Eran Chacon SPEC GRAVITY 1.025 Normal 1.005-<=1.02 5 [facility] Comment on above: Performed By: #### Med SHER UMICRO #### [facility] [address] [place] [address] Dr. Eran Chacon UA PROTEIN Negative Normal NEGATIVE/ TRACE [facility] Comment on above: Performed By: #### Med SHER UMICRO #### [facility] [address] [place] [address] Dr. Eran Chcaon UR MICRO IND INDICATED Normal [facility] Comment on above: Performed By: #### Med SHER UMICRO #### [facility] [address] [place] [address] Dr. Eran Chacon Urobilinogen Qn (U) 0.2 {Aureliano'U}/dL Normal 0.2 - 1. 0 [facility] Comment on above: Performed By: #### Med SHER, UMICRO #### [facility] [address] [place] [address] Dr. Eran Chacon PROF 14(COMP METB)on 022 Albumin [Mass/Vol] 4.0 g/dL Normal 3.4-5.0 [facility] Comment on above: Performed By: #### C MP #### [facility] [address] [place] [address] Dr. Eran Chacon Albumin/Globulin [Mass ratio] 1.2 {ratio} Normal [facility] Comment on above: Performed By: #### C MP #### [facility] [address] [place] [address] Dr. Eran Chacon ALP [Catalytic activity/Vol] 104 U/L Normal 46-116 [facility] Comment on above: Performed By: #### C MP #### [facility] [address] [place] [address] Dr. Eran Chacon ALT [Catalytic activity/Vol] 28 U/L Normal 16-63 [facility] Comment on above: Performed By: #### C MP #### [facility] [address] [place] [address] Dr. Eran Chacon Anion gap [Moles/Vol] 7.2 mmol/L Normal [facility] Comment on above: Performed By: #### C MP #### [facility] [address] [place] [address] Dr. Eran Chacon AST [Catalytic activity/Vol] 14 U/L Critically low 15-37 [facility] Comment on above: Performed By: #### C MP #### [facility] [address] [place] [address] Dr. Eran Chacon Bilirubin [Mass/Vol] 0.4 mg/dL Normal 0.2-1.0 [facility] Comment on above: Performed By: #### C MP #### [facility] [address] [place] [address] Dr. Eran Chacon Calcium [Mass/Vol] 9.0 mg/dL Normal 8.5-10.[address] [facility] Comment on above: Performed By: #### C MP #### [facility] [address] [place] [address] Dr. Eran Chacon Chloride [Moles/Vol] 103 mmol/L Normal 98-107 [facility] Comment on above: Performed By: #### C MP #### [facility] [address] [address] [address] Eran Chacon CO2 [Moles/Vol] 30.0 mmol/L Normal 21.0-32.0 [facility] Comment on above: Performed By: #### C MP #### [facility] [address] [address] [address] Eran Chacon Creatinine [Mass/Vol] 0.85 mg/dL Normal 0.70-1.30 [facility] Comment on above: Performed By: #### C MP #### [facility] [address] [address] [address] Eran Chacon EGFR-AF DOMINICAN >60 Normal >=60 [facility] Comment on above: Performed By: #### C MP #### [facility] [address] [address] [address] Eran Chacon EGFR-NON AF DOMINICAN >60 Normal >=60 [facility] Comment on above: Performed By: #### C MP #### [facility] [address] [address] [address] Eran Chacon Globulin (S) [Mass/Vol] 3.3 g/dL Normal [facility] Comment on above: Performed By: #### C MP #### [facility] [address] [place] [address] Dr. rEan Chacon Glucose [Mass/Vol] 165 mg/dL Critically high 74-106 [facility] Comment on above: Performed By: #### C MP #### [facility] [address] [place] [address] Dr. Erna Chacon Potassium [Moles/Vol] 4.2 mmol/L Normal 3.5-5.1 [facility] Comment on above: Performed By: #### C MP #### [facility] [address] [address] [address] Eran Chacon Protein [Mass/Vol] 7.3 g/dL Normal 6.4-8.[address] [facility] Comment on above: Performed By: #### C MP #### [facility] [address] [address] [address] Eran Chacon Sodium [Moles/Vol] 136 mmol/L Normal 136-145 [facility] Comment on above: Performed By: #### C MP #### [facility] [address] [place] [address] Dr. Eran Chacon Urea nitrogen [Mass/Vol] 10.0 mg/dL Normal 7.0-18.0 [facility] Comment on above: Performed By: #### C MP #### [facility] [address] [place] [address] Dr. Eran Chacon Urea nitrogen/Creatinine [Mass ratio] 11.8 mg/mg Normal [facility] Comment on above: Performed By: #### C MP #### [facility] [address] [place] [address] Dr. Eran Chacon URINE MICROSCOPIC ONLYon BACTERIA NONE SEEN Normal NONE SEEN [facility] Comment on above: Performed By: #### Med SHER UMICRO #### [facility] [address] [place] [address] Dr. Eran Chacon Bacteria identified Cx Nom (U) NOT INDICATED Normal [facility] Comment on above: Performed By: #### Med SHER UMICRO #### [facility] [address] [place] [address] Dr. Eran Chacon CAST NONE SEEN Normal NONE SEEN [facility] Comment on above: Performed By: #### Med SHER UMICRO #### [facility] [address] [place] [address] Dr. Eran Chacon Crystals LM Nom (Urine sed) NONE SEEN Normal NONE SEEN [facility] Comment on above: Performed By: #### Med SHER UMICRO #### [facility] [address] [place] [address] Dr. Eran Chacon Epithelial cells LM Ql (Urine sed) RARE Normal NONE SEEN /RARE [facility] Comment on above: Performed By: #### Med SHER UMICRO #### [facility] [address] [place] [address] Dr. Eran Chacon MUCOUS NONE SEEN Normal NONE SEEN [facility] Comment on above: Performed By: #### E BISHNU SHERRO #### [facility] [address] [address] [address] Eran Chacon RBC 0-2 Normal 0-2 [facility] Comment on above: Performed By: #### E BISHNU SHERRO #### [facility] [address] [address] [address] Eran Chacon WBC 2-5 Abnormal NONE SEEN [facility] Comment on above: Performed By: #### E BISHNU SHERRO #### [facility] [address] [address] [address] Eran Chacon MRI SHOULDER LT WO [...] by: YEISON NAVAS Date: 2022-02-02 17:09 Normal [facility] Vital Signs Date Time Vital Sign Value Performing Clinician Facility 06-17-2024 09:13-0400 Body height 175.26 cm MD Jeremy Magallanes Work Phone: [facility] 06-17-2024 09:13-0400 Body mass index (BMI) [Ratio] 33.5 kg/m2 MD Jeremy Magallanes Work Phone: [facility] 06-17-2024 09:13-0400 Body temperature 98.1 [degF] MD Jeremy Magallanes Work Phone: [facility] 06-17-2024 09:13-0400 Body weight 102.96 kg MD Jeremy Magallanes Work Phone: [facility] 06-17-2024 09:13-0400 Diastolic blood pressure 83 mm[Hg] MD Jeremy Magallanes Work Phone: [facility] 06-17-2024 09:13-0400 Heart rate 79 /min MD Jeremy Magallanes Work Phone: [facility] 06-17-2024 09:13-0400 Systolic blood pressure 149 mm[Hg] MD Jeremy Magallanes Work Phone: [facility] 05-27-2024 14:56-0400 Body height 175.3 cm Priyanka Vaz CAP MACHINE OPERATOR-W[employer]IN INSTALLER HELPER [facility] 05-27-2024 14:56-0400 Body mass index (BMI) [Ratio] 33.97 kg/m2 Priyanka Vaz CAP MACHINE OPERATOR-WATER MAIN INSTALLER HELPER Work Phone: [facility] 05-27-2024 14:56-0400 Body weight 104.33 kg Priyanka Vaz CAP MACHINE OPERATOR-WATER [employer]IN INSTALLER HELPER Work Phone: [facility] 03-18-2024 08:46-0400 Body height 175.26 cm [facility] 03-18-2024 08:46-0400 Body mass index (BMI) [Ratio] 34.4 kg/m2 [facility] 03-18-2024 08:46-0400 Body weight 105.68 kg [facility] 03-18-2024 08:46-0400 Diastolic blood pressure 80 mm[Hg] [facility] 03-18-2024 08:46-0400 Heart rate 72 /min [facility] 03-18-2024 08:46-0400 Systolic blood pressure 130 mm[Hg] [facility] 03-03-2024 11:54-0400 Body height 175.26 cm [facility] 03-03-2024 11:54-0400 Body mass index (BMI) [Ratio] 34.7 kg/m2 [facility] 03-03-2024 11:54-0400 Body weight 106.59 kg [facility] 03-03-2024 11:54-0400 Diastolic blood pressure 81 mm[Hg] [facility] 03-03-2024 11:54-0400 Heart rate 69 /min [facility] 03-03-2024 11:54-0400 Systolic blood pressure 129 mm[Hg] [facility] 12-17-2023 08:54-0400 Body height 175.26 cm [facility] 12-17-2023 08:54-0400 Body mass index (BMI) [Ratio] 35.2 kg/m2 [facility] 12-17-2023 08:54-0400 Body weight 108.4 kg [facility] 12-17-2023 08:54-0400 Diastolic blood pressure 76 mm[Hg] [facility] 12-17-2023 08:54-0400 Heart rate 76 /min [facility] 12-17-2023 08:54-0400 Systolic blood pressure 154 mm[Hg] [facility] 12-05-2023 08:52-0400 Body height 175.26 cm [facility] 12-05-2023 08:52-0400 Body mass index (BMI) [Ratio] 35 kg/m2 [facility] 12-05-2023 08:52-0400 Body weight 107.67 kg [facility] 12-05-2023 08:52-0400 Diastolic blood pressure 78 mm[Hg] [facility] 12-05-2023 08:52-0400 Heart rate 69 /min [facility] 12-05-2023 08:52-0400 Systolic blood pressure 147 mm[Hg] [facility] 09-13-2023 13:30-0500 Body height 175.26 cm Jeremy Magallanes Other [facility] 09-13-2023 13:30-0500 Body mass index (BMI) [Ratio] 33.22 kg/m2 Jeremy Magallanes Other [employer] [facility] Other 09-13-2023 13:30-0500 Body temperature 98.4 [degF] Jeremy Magallanes Other [facility] Other 09-13-2023 13:30-0500 Body weight 102.06 kg Jeremy Magallanes Other [employer] Other 09-13-2023 13:30-0500 Body weight 102.05 kg [facility] 09-13-2023 13:30-0500 Diastolic blood pressure 80 mm[Hg] Jeremy Magallanes Other [facility] 09-13-2023 13:30-0500 SaO2% (BldA) [Mass fraction] 93 % Jeremy Magallanes Other [employer] Other 09-13-2023 13:30-0500 Systolic blood pressure 118 mm[Hg] Jeremy Magallanes Other [facility] 08-13-2023 10:30-0500 Body height 175.26 cm Jeremy Magallanes Other [employer] Other 08-13-2023 10:30-0500 Body mass index (BMI) [Ratio] 33.9 kg/m2 Jeremy Magallanes Other [employer] Other 08-13-2023 10:30-0500 Body weight 104.15 kg Jeremy Magallanes Other [employer] Other 08-13-2023 10:30-0500 Diastolic blood pressure 78 mm[Hg] Jeremy Magallanes Other [employer] Other 08-13-2023 10:30-0500 Systolic blood pressure 124 mm[Hg] Jeremy Magallanes Other [employer] Other 06-25-2023 08:45-0500 Body height 175.26 cm Jeremy Magallanes Other [employer] Other 06-25-2023 08:45-0500 Body mass index (BMI) [Ratio] 33.37 kg/m2 Jeremy Magallanes Other [employer] Other 06-25-2023 08:45-0500 Body temperature 96.5 [degF] Jeremy Magallanes Other [employer] Other 06-25-2023 08:45-0500 Body weight 102.51 kg Jeremy Magallanes Other [employer] Other 06-25-2023 08:45-0500 Diastolic blood pressure 85 mm[Hg] Jeremy Magallanes Other [employer] Other 06-25-2023 08:45-0500 Systolic blood pressure 149 mm[Hg] Jeremy Magallanes Other [employer] Other 05-28-2023 10:45-0400 Body height 175.26 cm Jeremy Magallanes Other [employer] Other 05-28-2023 10:45-0400 Body mass index (BMI) [Ratio] 33.52 kg/m2 Jeremy Magallanes Other [employer] Other 05-28-2023 10:45-0400 Body weight 102.97 kg Jeremy Magallanes Other [employer] Other 05-28-2023 10:45-0400 Diastolic blood pressure 82 mm[Hg] Jeremy Magallanes Other [employer] Other 05-28-2023 10:45-0400 Systolic blood pressure 147 mm[Hg] Jeremy Magallanes Other [employer] Other 2023 08:45-0400 Body height 175.26 cm Jeremy Magallanes Other [employer] Other 2023 08:45-0400 Body mass index (BMI) [Ratio] 33.52 kg/m2 Jeremy Magallanes Other [employer] Other 2023 08:45-0400 Body weight 102.97 kg Jeremy Magallanes Other [employer] Other 2023 08:45-0400 Diastolic blood pressure 85 mm[Hg] Jeremy Magallanes Other [employer] Other 2023 08:45-0400 Systolic blood pressure 156 mm[Hg] Jeremy Magallanes Other [employer] Other 04-30-2023 09:45-0400 Body height 175.26 cm Jeremy Magallanes Other [employer] Other 04-30-2023 09:45-0400 Body mass index (BMI) [Ratio] 34.32 kg/m2 Jeremy Magallanes Other [employer] Other 04-30-2023 09:45-0400 Body temperature 96.2 [degF] Jeremy Magallanes Other [employer] Other 04-30-2023 09:45-0400 Body weight 105.42 kg Jeremy Magallanes Other [employer] Other 04-30-2023 09:45-0400 Diastolic blood pressure 78 mm[Hg] Jeremy Magallanes Other [employer] Other 04-30-2023 09:45-0400 Respiratory rate 16 /min Jeremy Magallanes Other [employer] Other 04-30-2023 09:45-0400 Systolic blood pressure 146 mm[Hg] Jeremy Magallanes Other [employer] Other 02-20-2023 09:15-0400 Body height 175.26 cm Jeremy Magallanes Other [employer] Other 02-20-2023 09:15-0400 Body mass index (BMI) [Ratio] 33.46 kg/m2 Jeremy Maglalanes Other [employer] Other 02-20-2023 09:15-0400 Body weight 102.79 kg Jeremy Magallanes Other [employer] Other 02-20-2023 09:15-0400 Diastolic blood pressure 77 mm[Hg] Jeremy Magallanes Other [employer] Other 02-20-2023 09:15-0400 Systolic blood pressure 131 mm[Hg] Jeremy Magallanes Other [employer] Other 01-17-2023 08:45-0400 Body height 175.26 cm Jeremy Magallanes Other [employer] Other 01-17-2023 08:45-0400 Body mass index (BMI) [Ratio] 33.37 kg/m2 Jeremy Magallanes Other [employer] Other 01-17-2023 08:45-0400 Body weight 102.51 kg Jeremy Magallanes Other [employer] Other 01-17-2023 08:45-0400 Diastolic blood pressure 79 mm[Hg] Jeremy Magallanes Other [employer] Other 01-17-2023 08:45-0400 Systolic blood pressure 128 mm[Hg] Jeremy Magallanes Other [employer] Other 11-23-2022 09:30-0400 Body height 175.26 cm Jeremy Magallanes Other [employer] Other 11-23-2022 09:30-0400 Body mass index (BMI) [Ratio] 33.96 kg/m2 Jeremy Magallanes Other [employer] Other 11-23-2022 09:30-0400 Body weight 104.33 kg Jeremy Magallanes Other [employer] Other 11-23-2022 09:30-0400 Diastolic blood pressure 72 mm[Hg] Jeremy Magallanes Other [employer] Other 11-23-2022 09:30-0400 Systolic blood pressure 122 mm[Hg] Jeremy Magallanes Other [employer] Other 09-04-2022 11:30-0500 Body height 175.26 cm Jeremy Magallanes Other [employer] Other 09-04-2022 11:30-0500 Body mass index (BMI) [Ratio] 33.52 kg/m2 Jeremy Magallanes Other [employer] Other 09-04-2022 11:30-0500 Body weight 102.97 kg Jeremy Magallanes Other [employer] Other 09-04-2022 11:30-0500 Diastolic blood pressure 80 mm[Hg] Jeremy Magallanes Other [employer] Other 09-04-2022 11:30-0500 SaO2% (BldA) [Mass fraction] 95 % Jeremy Magallanes Other [employer] Other 09-04-2022 11:30-0500 Systolic blood pressure 122 mm[Hg] Jeremy Magallaens Other [employer] Other 02-06-2022 12:45-0400 Body height 175.26 cm Kesha Olexa Other [employer] Other 02-06-2022 12:45-0400 Body mass index (BMI) [Ratio] 31.01 kg/m2 Kesha Olexa Other [employer] Other 02-06-2022 12:45-0400 Body weight 95.26 kg Kesha Olexa Other [employer] Other 05-26-2021 13:15-0400 Body height 175.26 cm Harriet Ginty Other [employer] Other 05-26-2021 13:15-0400 Body mass index (BMI) [Ratio] 31.01 kg/m2 Harriet Ginty Other [employer] [facility] Other 05-26-2021 13:15-0400 Body temperature 98.3 [degF] Harriet Elizabethnty Other [employer] Other 05-26-2021 13:15-0400 Body weight 95.26 kg Harriet Ginty Other [employer] Other 05-26-2021 13:15-0400 SaO2% (BldA) [Mass fraction] 96 % Harriet Elizabethnty Other [employer] Other Encounters Encounter Date Encounter Type Care Provider Facility Start: 06-17-2024 End: 06-17-2024 ambulatory MD Jeremy Magallanes Work Phone: [facility] Work Phone: Start: 06-17-2024 End: 06-17-2024 Patient encounter procedure MD Jeremy Magallanes Work Phone: [facility] Work Phone: Start: 06-12-2024 End: 06-12-2024 Orders Only Not In System Ref Prov [facility] Start: 06-10-2024 End: 06-10-2024 Orders Only Rosalia Shea [facility] Comment on above: Dysphagia, unspecifi ed type; Black stools Start: 06-03-2024 End: 06-03-2024 ambulatory MD Jeremy Magallanes Work Phone: [facility] Work Phone: Start: 06-03-2024 End: 06-03-2024 Departed Referred MD Jeremy Magallanes Work Phone: [facility] Start: 06-03-2024 Non-patient / Non-visit MD Angelina Magallanes Work Phone: [facility] Work Phone: Start: 05-27-2024 End: 05-27-2024 Office outpatient new 30 minutes Priyanka Rosalinda Kamari CAP MACHINE OPERATOR-WATER MAIN INSTALLER HELPER Work Phone: [facility] Comment on above: Dysphagia, unspecifi ed type (Primary Dx); Black stools; Gastroesophageal reflux disease, unspecified whether esophagitis present; Abnormal esophagram Start: 05-27-2024 End: 05-27-2024 ambulatory PRIYANKA VAZ [facility] Start: 05-18-2024 End: 05-18-2024 ambulatory Zacarias Pike MD Facility: [facility] Start: 05-14-2024 End: 05-21-2024 Telephone encounter Ameya Meraz MD Work Phone: General Surgery Comment on above: New Patient; Care Co ordinator - Other Start: 04-07-2024 End: 04-07-2024 ambulatory MALATHI SANCHEZ Not Available Start: 04-06-2024 End: 04-06-2024 ambulatory Zacarias Pike MD Facility: [facility] Start: 03-18-2024 End: 03-18-2024 ambulatory [facility] Work Phone: Start: 03-18-2024 End: 03-18-2024 Patient encounter procedure [facility] Work Phone: Start: 03-16-2024 End: 03-16-2024 ambulatory Zacarias Pike MD Facility: [facility] Start: 03-03-2024 End: 03-03-2024 ambulatory [facility] Work Phone: Start: 03-03-2024 End: 03-03-2024 Patient encounter procedure [facility] Work Phone: Start: 02-27-2024 Non-patient / Non-visit [facility] Work Phone: Start: 02-24-2024 End: 02-24-2024 ambulatory Zacarias Pike MD Facility:[facility] Start: 02-03-2024 End: 02-03-2024 ambulatory Zacarias Pike MD Facility:[facility] Start: 01-20-2024 End: 01-20-2024 ambulatory Zacarias Pike MD Facility:[facility] Start: 12-17-2023 End: 12-17-2023 ambulatory [facility] Work Phone: Start: 12-17-2023 End: 12-17-2023 Patient encounter procedure [facility] Work Phone: Start: 12-05-2023 End: 12-05-2023 ambulatory [facility] Work Phone: Start: 12-05-2023 End: 12-05-2023 Patient encounter procedure [facility] Work Phone: Start: 10-23-2023 Non-patient / Non-visit [facility] Work Phone: Start: 10-08-2023 Non-patient / Non-visit [facility] Work Phone: Start: 10-07-2023 End: 10-07-2023 ambulatory [facility] Not Available Start: 09-18-2023 End: 09-18-2023 ambulatory Jeremy Magallanes Other [employer] Other Start: 09-18-2023 Telephone encounter Jeremy Magallanes [facility] Start: 09-13-2023 End: 09-13-2023 ambulatory Jeremy Magallanes Other [employer] Other Start: 09-13-2023 Office outpatient vi sit 15 minutes Jeremy Magallanes [facility] Start: 09-13-2023 End: 09-13-2023 Patient encounter procedure [facility] Physician [facility]- Start: 09-11-2023 Telephone encounter Argentina coleman [...] 09-10-2023 End: 09-10-2023 ambulatory Jeremy Magallanes Other [facility] Other Start: 09-10-2023 Telephone encounter Jeremy Magallanes [facility] Start: 09-06-2023 End: 09-06-2023 ambulatory Jeremy Magallanes Other [facility] Other Start: 09-06-2023 Telephone encounter Jeremy Magallanes [facility] Start: 09-02-2023 End: 09-02-2023 ambulatory BARBIE Tellez POCOS Not Available Start: 08-20-2023 End: 08-20-2023 ambulatory Jeremy Magallanes Other [facility] Other Start: 08-20-2023 Telephone encounter Jeremy Magallanes [facility] Start: 08-13-2023 End: 08-13-2023 ambulatory Jeremy Magallanes Other [facility] Other Start: 08-13-2023 Office outpatient vi sit 25 minutes Jeremy Magallanes [facility] Start: 08-13-2023 Telephone encounter Jeremy Magallanes [facility] Start: 08-06-2023 End: 08-06-2023 ambulatory Jeremy Sona Other [facility] Other Start: 08-06-2023 Telephone encounter Jeremy Magallanes [facility] Start: 07-29-2023 End: 07-29-2023 ambulatory BARBIE TAPIA Not Available Start: 07-22-2023 End: 07-22-2023 ambulatory Jeremy Sona Other [facility] Other Start: 07-22-2023 Telephone encounter Jeremy Magallanes [facility] Start: 07-19-2023 End: 07-19-2023 ambulatory Jeremy Sona Other [facility] Other Start: 07-19-2023 Telephone encounter Jeremy Sona [facility] Start: 07-18-2023 End: 07-18-2023 ambulatory Jeermy Sona Other [facility] Other Start: 07-18-2023 Telephone encounter Jeremy Magallanes [facility] Start: 07-02-2023 End: 07-02-2023 ambulatory Jeremy Sona Other [facility] Other Start: 07-02-2023 Office outpatient vi sit 15 minutes Jeremy Sona [facility] Start: 07-02-2023 Telephone encounter Jeremy Magallanes [facility] Start: 06-25-2023 End: 06-25-2023 ambulatory Jeremy Magallanes Other [facility] Other Start: 06-25-2023 Office outpatient vi sit 15 minutes Jeremy Sona [facility] Start: 06-21-2023 End: 06-21-2023 ambulatory Jeremy Magallanes Other [facility] Other Start: 06-21-2023 Encounter by edmond owen Jeremy Sona [facility] Start: 06-20-2023 End: 06-20-2023 ambulatory Jeremy Sona Other [facility] Other Start: 06-20-2023 Telephone encounter Jeremy Magallanes [facility] Start: 06-17-2023 End: 06-17-2023 ambulatory Jeremy Magallanes Other [facility] Other Start: 06-17-2023 Telephone encounter Jeremy Sona [facility] Start: 06-10-2023 End: 06-10-2023 ambulatory Jeremy Magallanes Other [facility] Other Start: 06-10-2023 Telephone encounter Jeremy Sona [facility] Start: 06-03-2023 End: 06-03-2023 ambulatory Jeremy Magallanes Other [facility] Other Start: 06-03-2023 Telephone encounter Jeremy Sona [facility] Start: 05-30-2023 End: 05-31-2023 ambulatory Hi Pocos Facility:[facility] Start: 05-30-2023 End: 05-30-2023 Patient encounter procedure Barbie Tellez Pocos [facility] Start: 05-28-2023 End: 05-28-2023 ambulatory Jeremy Magallanes Other [facility] Other Start: 05-28-2023 Office outpatient vi sit 15 minutes Jeremy Sona [facility] Start: 2023 End: 2023 ambulatory Jeremy Magallanes Other [facility] Other Start: 2023 Office outpatient vi sit 15 minutes Jeremy Magallanes [facility] Start: 05-16-2023 End: 05-16-2023 ambulatory Jeremy Magallanes Other [facility] Other Start: 05-16-2023 Telephone encounter Jeremy Magallanes [facility] Start: 04-30-2023 End: 04-30-2023 ambulatory Jeremy Sona Other [facility] Other Start: 04-30-2023 Office outpatient vi sit 15 minutes Jeremyyeyo Magallanes [facility] Start: 04-26-2023 End: 04-26-2023 ambulatory Jeremy Magallanes Other [facility] Other Start: 04-26-2023 Telephone encounter Jeremy Sona [facility] Start: 04-23-2023 End: 04-23-2023 ambulatory Jeremy Sona Other [facility] Other Start: 04-23-2023 Telephone encounter Jeremy Sona [facility] Start: 03-25-2023 End: 03-25-2023 ambulatory Jeremy Sona Other [facility] Other Start: 03-25-2023 Telephone encounter Jeremy Sona [facility] Start: 03-06-2023 End: 03-06-2023 ambulatory Jeermy Sona Other [facility] Other Start: 03-06-2023 Telephone encounter Jeremy Sona [facility] Start: 02-20-2023 End: 02-20-2023 ambulatory Jeremy Sona Other [facility] Other Start: 02-20-2023 Office outpatient vi sit 25 minutes Jeremy Sona [facility] Start: 02-05-2023 End: 02-05-2023 ambulatory Jeremy Magallanes Other [facility] Other Start: 02-05-2023 Telephone encounter Jeremy Sona [facility] Start: 01-21-2023 End: 01-21-2023 ambulatory Jeremy Sona Other [facility] Other Start: 01-21-2023 Telephone encounter Jeremy Magallanes [facility] Start: 01-17-2023 End: 01-17-2023 ambulatory Jeremy Magallanes Other [facility] Other Start: 01-17-2023 Office outpatient vi sit 15 minutes Jeremy Magallanes [facility] Start: 12-24-2022 End: 12-24-2022 ambulatory Jeremy Magallanes Other [facility] Other Start: 12-24-2022 Telephone encounter Jeremy Magallanes [facility] Start: 12-03-2022 End: 12-03-2022 ambulatory Jeremy Magallanes Other [facility] Other Start: 12-03-2022 Telephone encounter Jeremy Magallanes [facility] Start: 11-27-2022 End: 11-27-2022 ambulatory Jeremy Magallanes Other [facility] Other Start: 11-27-2022 Telephone encounter Jeremy Magallanes [facility] Start: 11-26-2022 End: 11-26-2022 ambulatory Jeremy Magallanes Other [facility] Other Start: 11-26-2022 Telephone encounter Jeremy Magallanes [facility] Start: 11-24-2022 End: 11-25-[address] JEREMY MAGALLANES Facility: Start: 11-23-2022 End: 11-23-2022 ambulatory Jeremy Magallanes Other [facility] Other Start: 11-23-2022 Office outpatient vi sit 15 minutes Jeremy Magallanes [facility] Start: 11-05-2022 End: 11-05-2022 ambulatory Jeremy Magallanes Other [facility] Other Start: 11-05-2022 Telephone encounter Jeremy Magallanes [facility] Start: 10-03-2022 End: 10-03-2022 ambulatory Jeremy Magallnaes Other [facility] Other Start: 10-03-2022 Telephone encounter Jeremy Magallanes [facility] Start: 09-04-2022 End: 09-04-2022 ambulatory Jeremy Magallanes Other [facility] Other Start: 09-04-2022 Office outpatient vi sit 25 minutes Jeremy Magallanes [facility] Start: 07-26-[address] JEREMY MAGALLANES Facil ity:[facility] Start: 07-19-2022 End: 07-20-[address] WILFREDO ENGLE Facility:[facility] Start: 06-07-2022 End: 06-07-[address] JEREMY MAGALLANES Facility:[facility] Start: 03-15-2022 ambulatory KESHA ESCOBEDO Facility:[facility] Start: 02-06-2022 End: 02-06-2022 ambulatory Kesha Olemartin Other [facility] Other Start: 02-06-2022 Office outpatient vi sit 25 minutes Kesha Olexa [facility] Start: 02-02-2022 End: 02-03-2022 ambulatory KESHA OLEMARTIN Facility:[facility] Start: 12-28-2021 End: 12-28-[address] JEREMY MAGALLANES Facility:[facility] Start: 12-12-2021 End: 12-13-2021 ambulatory KESHA OLEXA [facility] Other Start: 12-12-2021 Office outpatient ne w 30 minutes Kesha Olexa [facility] [place] [facility] [place] Start: 05-26-2021 Office outpatient vi sit 15 minutes Harriet Ginty [facility] Procedures Date Procedure Procedure Detail Performing Clinician Start: 06-03-2024 Esophagogastroduodenoscopy Priyanka vázquez CAP MACHINE OPERATOR-WATER MAIN INSTALLER HELPER Work Phone: Start: 06-03-2024 Level i surg pathology gross examination only Not In System Ref Prov Start: 06-03-2024 MULTIPLE LABS Not In System Ref Prov Start: 12-18-2018 Laboratory test result abnormal Jeremy olmstead Other Start: 05-12-2018 Removal of suture Jeremy Magallanes Other Start: 01-08-2017 Screening for malignant neoplasm of prostate Jeremy Magallanes Other Screening for malign ant neoplasm of colon Jeremy Magallanse Other Screening for malign ant neoplasm of prostate Jeremy Magallanes Other Plan of Treatment Date Care Activity Detail Author Start: 06-28-2026 DTaP,Tdap and Td Vaccines (3 - Td or Tdap) DTaP,Tdap and Td Vaccines (3 - Td or Tdap) [facility] Start: 05-27-2025 Adult BMI Screening Adult BMI Screening [facility] Start: 05-27-2025 Tobacco Screening Tobacco Screening [facility] Start: 04-19-2024 Influenza vaccination Influenza Vaccine [facility] Start: 03-18-[address] [facility] Work Phone: Start: 10-07-2023 End: 10-07-2023 Patient encounter procedure 10/07/2023 8:00 AM EST Office Visit [facility] [address] [place] [address] Barbie Tapia DO [address] [place] [address] [facility] Start: 2010 Administration of varicella zoster vaccine Zoster (Shingles) Vaccine (1 of 2) [facility] Start: 1978 Adult BMI Follow Up Plan Adult BMI Follow Up Plan [facility] Start: 1972 Depression Screening Depression Screening [facility] Start: 1960 Tobacco Counseling Tobacco Counseling [facility] CT Chest WO contrast [facility] End: 05-27-2025 Esophagogastroduodenoscopy EGD GI Routine Dysphagia, unspecified type Black stools 1 Occurrences starting 05/27/2024 until 05/27/2025 [facility] Work Phone: Comment on above: 1 Occurrences starting 05/27/2024 until 05/27/[address] 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 purified surface antigen) Jeremy Magallanes Other [facility] Other 05-17-2017 influenza virus vaccine, unspecified formulation [facility] 05-16-2017 influenza, injectabl e, quadrivalent, preservative free Argentina Clinton PT Work Phone: [facility] 06-28-2016 influenza, injectabl e, quadrivalent, preservative free Argentina Clinton PT Work Phone: [facility] 06-28-2016 tetanus and diphther ia toxoids, adsorbed, preservative free, for adult use (5 Lf of tetanus toxoid and 2 Lf of diphtheria toxoid) Jeremy Magallanes Other [facility] 05-25-2015 influenza, seasonal, injectable, preservative free Argentina Clinton PT Work Phone: [facility] 05-25-2015 tetanus and diphther ia toxoids, adsorbed, preservative free, for adult use (5 Lf of tetanus toxoid and 2 Lf of diphtheria toxoid) Jeremy Magallanes Other [facility] 06-15-1999 pneumococcal conjuga te vaccine, 7 valent Argentina Clinton PT Work Phone: [facility] Payers Date Payer Category Payer Medicaid [id number] 2013 Medicare [id number] 1960 Unknown [id number] 2.16.84 0.1.777067.3.579.2.593 1960 Unknown [id number] 2.16.84 0.1.866885.3.579.2.593 1960 Unknown [id number] 2.16.84 0.1.310877.3.579.2.593 1960 Unknown [id number] 2.16.84 0.1.937375.3.579.2.593 1960 Unknown [id number] 2.16.84 0.1.241689.3.579.2.593 1960 Unknown [id number] 2.16.84 0.1.521760.3.579.2.593 1960 Unknown [id number] 2.16.84 0.1.424267.3.579.2.593 1960 Unknown [id number] 2.16.84 0.1.895236.3.579.2.593 1960 Unknown [id number] 2.16.8 40.1.642146.3.579.2.727 1960 Unknown [id number] 2.16.84 0.1.133324.3.579.2.1259 1960 Unknown [id number] 2.16.84 0.1.598561.3.579.2.1259 1960 Unknown [id number] 2.16.84 0.1.514488.3.579.2.1259 1960 Unknown [id number] 2.16.84 0.1.707906.3.579.2.1259 1960 Unknown [id number] 2.16.840 .1.688019.3.579.2.1259 1960 Unknown [id number] 2.16. 840.1.009598.3.579.2.196 1960 Unknown [id number] 2.16. 840.1.996979.3.579.2.196 1960 Unknown [id number] 2.16. 840.1.355201.3.579.2.196 1960 Unknown [id number] 2.16. 840.1.400058.3.579.2.196 1960 Unknown [id number] 2.16. 840.1.679219.3.579.2.196 1960 Unknown [id number] 2.16. 840.1.717200.3.579.2.196 1960 Unknown [id number] 2.16.8 40.1.686439.3.579.2.1286 1959 Medicaid [id number] 2. 16.840.1.171975.19 1959 Medicare [id number] 2.1 [id number] Self-pay Self Pay [id number] Social History Date Type Detail Facility Start: 09-29-2020 End: 09-02-2023 Sex Assigned At [facility] Tobacco smoking status No Smokin g Status Entered [facility] Start: 06-03-2019 End: 03-27-2023 Tobacco smoking status [facility] Smokes tobacco daily [facility] Work Phone: History of tobacco use [facility]igarette [facility]oker [facility] Start: 09-29-2020 End: 03-27-2023 Cigarettes smoked current (pack per day) - Reported 0.5 [facility] Start: 06-03-2019 End: 03-27-2023 Tobacco use and exposure Smokeless tobacco non-user [facility] Start: 09-02-2023 End: 05-27-2024 Alcohol intake Lifetime non-drinker (finding) [facility] Start: 03-27-2023 Alcohol Comment Caffine- Soda [facility] Start: 1960 Sex Assigned At Male [facility] Start: 08-21-2023 Gender identity Identifies as male gender (finding) [facility] Start: 08-21-2023 Sexual orientation Heterosexual (finding) [facility] Start: 02-06-2017 Tobacco smoking status [facility] Ex-smoker (finding) [facility] consumption unknown [facility] Start: 1960 Sex assigned at Not on file [facility] Frequency of Alcohol Consumption Never [facility] Start: 06-01-2019 Sex Male (finding) [facility] Medical Equipment Procedure Code Equipment Code Equipment Original Text Equi pment Identifier Dates Accu-Chek FastClix Lancet - Clinical Notes 05-26-2021 to 06-12-2024 Telephone Encounter - Evelyn Mendoza CMA - 06/12/2024 12:00 PM EDTTelephone Encounter - Evelyn Mendoza, ALLI - 06/12/2024 12:00 PM EDTTelephone Encounter - Evelyn Mendoza, ALLI - 06/12/2024 12:00 PM EDT Note Date [...] verified with patient. documented in this encounter [facility] 06-12-2024 Telephone encounter Note ----- [...] risk of esophageal cancer. Thanks, Dr. [facility] 06-12-2024 Telephone encounter Note Spoke with patient regarding pathology results. Patient verbally understood with no further questions. 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 Address verified with patient. T [facility] 05-27-2024 History of Presen t illness [...] gallbladder polyp. He saw Dr. Martinez in [place] for this. He also reports a positive [...] confusion. 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 While intending to generate a timely document that accurately reflects the content of the visit, no guarantee can be provided that every grammatical or spelling mistake has been or will be identified or corrected. Thank you for your understanding. CHARLEE Biggs 05/27/24 1555 documented in this encounter [facility] 05-15-2024 Telephone encounter Note Images from the original note were not included. Consult from Dr. Jeremy Magallanes (Internal Medicine) [facility] Referral received from PCP for [...] completed: 04/08/2024 Barium Swallow 03/21/2024 CT Chest [facility] 05-15-2024 Miscellaneous Notes Images from the original note were not included. Consult from Dr. Jeremy Magallanes (Internal Medicine) [facility] Referral received from PCP for [...] not included. Referral was sent from [facility] for new consult with Dr Meraz Please see below and advise documented in this encounter [facility] 05-14-2024 Telephone encounter Note Images from the original note were not included. Referral was sent from [facility] for new consult with Dr Meraz Please see below and advise [facility] 10-02-2023 Telephone encounter Note No attempts to hear back; closing referral. [facility] 10-02-2023 Miscellaneous Notes No attempts to hear back; closing referral. documented in this encounter [facility] 09-13-2023 Evaluation note Encounter Date Diagnosis Assessment Notes Aug, Chronic obstructive pulmonary disease, unspecified (ICD-10 - J44.9) Finish antibiotics and prednisone as prescribed. Denies pulmonary referral at this time. Hasn't smoked since 09/08 and declines chantix or patches. Aug, Current smoker (ICD-10 - F17.200) [facility] Other 01-23-2024 Evaluation note* Encounter Date Diagnosis Assessment Notes Treatment Notes Treatment Clinical Notes Aug, Lumbar radicular pain (ICD-10 - M54.16) [facility] Other 01-19-2024 Evaluation note* Encounter Date Diagnosis Assessment Notes Treatment Notes Treatment Clinical Notes Aug, Lumbar radicular pain (ICD-10 - M54.16) [facility] Other 12-26-2023 Evaluation note* Encounter Date Diagnosis Assessment Notes Treatment Notes Treatment Clinical Notes Jul, Type 2 diabetes mellitus with hyperglycemia, without long-term current use of insulin (ICD-10 - E11.65) [facility] Other 12-26-2023 Evaluation note* Encounter Date Diagnosis [...] T3s after shoulder pain has improved post-operatively. [facility] Other 12-04-2023 Evaluation note* Encounter Date Diagnosis Assessment Notes Treatment Notes Treatment Clinical Notes Jul, Type 2 diabetes mellitus with hyperglycemia, without long-term current use of insulin (ICD-10 - E11.65) [facility] Other 12-01-2023 Evaluation note* Encounter Date Diagnosis Assessment Notes Treatment Notes Treatment Clinical Notes Jul, Type 2 diabetes mellitus with hyperglycemia, without long-term current use of insulin (ICD-10 - E11.65) [facility] Other 11-30-2023 Evaluation note* Encounter Date Diagnosis Assessment Notes Treatment Notes Treatment Clinical Notes Jun, Labral tear of shoulder, right, subsequent encounter (ICD-10 - S43.431D) [facility] Other 11-14-2023 Evaluation note* Encounter Date Diagnosis [...] pain (ICD-10 - R07.9) r/o cardiac cause [facility] Other 11-07-2023 Evaluation note* Encounter Date Diagnosis [...] to decrease dose and possibly discontinue medication. [facility] Other 11-02-2023 Evaluation note* Encounter Date Diagnosis Assessment Notes Treatment Notes Treatment Clinical Notes Jun, Acute pain of right shoulder (ICD-10 - M25.511) [facility] Other 10-30-2023 Evaluation note* Encounter Date Diagnosis Assessment Notes Treatment Notes Treatment Clinical Notes May, Acute pain of right shoulder (ICD-10 - M25.511) [facility] Other 10-23-2023 Evaluation note* Encounter Date Diagnosis Assessment Notes Treatment Notes Treatment Clinical Notes May, Acute pain of right shoulder (ICD-10 - M25.511) [facility] Other 10-16-2023 Evaluation note* Encounter Date Diagnosis Assessment Notes Treatment Notes Treatment Clinical Notes May, Acute pain of right shoulder (ICD-10 - M25.511) [facility] Other 10-10-2023 Evaluation note* Encounter Date Diagnosis Assessment Notes Treatment Notes Treatment Clinical Notes May, Acute pain of right shoulder (ICD-10 - M25.511) MRI and surgery planning pending. Pt understands this is a controlled substance and to call in 1 week w update on treatment plan. May, Bronchitis (ICD-10 - J40) Finish antibiotic, rest, hydrate Steroids for wheezing. [facility] Other 10-04-2023 Evaluation note* Encounter Date Diagnosis Assessment Notes Treatment Notes Treatment Clinical Notes May, Acute pain of right shoulder (ICD-10 - M25.511) Reviewed [place] and discussed short term plan of increase in pain medication. He is due for a refill of the T3s presently. Stop them, replace w norco. Pt understands weekly prescription and will need to d/c after anticipated surgery. [facility] Other 09-12-2023 Evaluation note* Encounter Date Diagnosis [...] office and the ER visit on 04/26 [facility] Other 07-05-2023 Evaluation note* Encounter Date Diagnosis [...] and will need less prn pain med. [facility] Other 06-01-2023 Evaluation note* Encounter Date Diagnosis [...] left shoulder (ICD-10 - M25.512) as above. [facility] Other 04-17-2023 Evaluation note* Encounter Date Diagnosis Assessment Notes Treatment Notes Treatment Clinical Notes Nov, Bronchitis (ICD-10 - J40) [facility] Other 04-11-2023 Evaluation note* Encounter Date Diagnosis Assessment Notes Treatment Notes Treatment Clinical Notes Nov, Disc degeneration, lumbar (ICD-10 - M51.36) Nov, Lumbar radicular pain (ICD-10 - M54.16) [facility] Other 04-07-2023 Evaluation note* Encounter Date Diagnosis [...] quit smoking. Pt verbalizes understanding and agreement. [facility] Other 02-15-2023 Evaluation note* Encounter Date Diagnosis Assessment Notes Treatment Notes Treatment Clinical Notes Sep, Lumbar radicular pain (ICD-10 - M54.16) [facility] Other 01-17-2023 Evaluation note* Encounter Date Diagnosis [...] is outlined on the test result page. [facility] Other 10-20-2022 NoteIndication: Calculus in kidney. 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 [facility] Other 04-26-2022 NotePROCEDURE: XR SHOULDER LT 2V or > COMPARISON: None. HISTORY: Pain of left shoulder joint FINDINGS: BONES:No acute fracture or dislocation. 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 No visible soft tissue swelling. EFFUSION:None visible. OTHER: Negative. IMPRESSION: Mild osteoarthritis Electronically authenticated by: BARBIE MEMBRENO Date: 2021-12-12 15:25[id number]* Encounter Date Diagnosis Assessment Notes [...] pain of left shoulder (ICD-10 - M25.512) [facility] [employer] Other 10-08-2021 Evaluation note* Encounter Date Diagnosis [...] as needed for cough. Advised patient that [place] contains antihistamine and cough suppressant and to be cautious using other OTC cold medications. Patient to follow up with PCP if symptoms do not improve. Immediate eval if SOB, difficulty breathing, chest pain, dizziness, or other concerning symptoms. Patient verbalizes understanding and is agreeable to treatment plan [facility] Other Evaluation + Plan note No data available for this section [facility] InformationNortAlleg[facility] Other Evaluation note* Diagnosis Onset Date Resolution Status Arthralgia acute Lumbar pain acute Type II diabetes mellitus ac [facility] Work Phone: Evaluation note* Diagnosis Onset Date Resolution Status Arthralgia acute Lumbar pain acute Type II diabetes mellitus ac [facility] Bilateral hip pain acute [facility] Work Phone: Evaluation note* Diagnosis Onset Date Resolution Status Arthralgia acute Lumbar pain acute Type II diabetes mellitus ac [facility] Bilateral hip pain acute Lumbar pain acute [facility] Work Phone: Evaluation note* Diagnosis Onset Date Resolution Status Submandibular abscess acute Chronic obstructive pulmonary disease, unspecified acute Esophageal abnormality acute Mass of left submandibular region [facility] Work Phone: Evaluation note* Diagnosis Dysphagia, unspecified type- Primary Black stools Nonspecific abnormal finding in stool contents Gastroesophageal reflux disease, unspecified whether esophagitis present Abnormal esophagram [facility] Diagnosis Onset Date Resolution Status Chronic obstructive pulmonary disease, unspecified acute Esophageal abnormality acute Mass of left submandibular region [facility] Work Phone: Evaluation note* Diagnosis Dysphagia, unspecified type Black stools Nonspecific abnormal finding in stool contents [facility] Diagnosis Onset Date Resolution Status 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 Hiatal hernia [facility] Work Phone: History general Narrative - Reported* Type Description Date Medical History Asthma Medical History skin cancer-lip Surgical History Left lung biopsy 1977 Surgical History L4 and L5 disc fusion 1984 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 Surgical History carpal tunnel release 2016 Surgical History tonsillectomy Hospitalization History 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 Hospitalization History pneumonia [facility] Other Hospital Discharge instructions No data available for this section [facility]* Referral to ENT Time Frame: 03/18/24, Location: None [facility] Work Phone: InstructionsNot on filedocumented in this encounter [facility] filed[facility] filed[facility] No data available for this section [facility] Summary Purpose Family History Relationship Condition [...] 1 Epigastric abdominal pain (R10.13) Referral Organization [facility]mar Referring Provider First Name Jeremy Referring Provider Last Name Sona Referring Provider Specialty [facility] Referred Organization [facility] Referred Provider Sai Martinez Referred Address ,[place], [place],[address] Referred Provider Specialty Surgery Referral Priority Routine General Notes Es Camilo 11:38:02 AM >received today, attachments made, notes locked, referral faxed Reason 01/28/23 Access Or tho - B shoulder pain L>R - hopes for injections. Diagnosis 1 Pain in right should er (M25.511) Referral Organization [facility] Referring Provider First Name Jeremy Referring Provider Last Name Sona Referring Provider [facility] Referred Organization [facility] Referred Provider Barbie Tapia Referred Address ,[place], [place],[address] Referred Provider Specialty Orthopaedic Surgery Referral Priority [...] in right should er (M25.511) Referral Organization [facility] Referring Provider First Name Jeremy Referring Provider Last Name Sona Referring Provider Specialty Family [facility] Referred Organization [facility] Referred Provider Barbie Tapia Referred Address ,[place], [place],[address] Referred Provider Specialty Orthopaedic Surgery Referral Priority [...] Mass of left submandibular region Chief Complaint Unknown cough, congestion Reason for Visit 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 Reason Comments New Patient Automatic Mounter - Other Reason Comments postive cologuard LAST COLONOSCOPY WAS OVER 20 YEARS AGO. Difficulty Swallowing Nausea Vomiting Abdominal Pain RUQ PAIN (unrecognized sect ion and content) No Status Records FoundNo Status Records FoundNo Status Records FoundNo Status Records FoundNo Status Records FoundNo Status Records FoundNo Status Records Found INFORMATION SOURCE (unrecogn ized section and content) DATE CREATED AUTHOR 12/04/2022 [facility] DATE CREATED AUTHOR AUTHOR'S ORGANIZ ATION 06/01/2023 [facility] DATE CREATED AUTHOR AUTHOR'S ORGANIZ ATION 04/08/2024 [facility] EPIC DATE CREATED AUTHOR AUTHOR'S ORGANIZ ATION 2024 [facility] DATE CREATED AUTHOR AUTHOR'S ORGANIZ ATION 05/23/2024 [facility] DATE CREATED AUTHOR AUTHOR'S ORGANIZ ATION 05/29/2024 [facility] DATE CREATED AUTHOR AUTHOR'S ORGANIZ ATION 06/12/2024 [facility] Patient Care team informatio n (unrecognized section and content) Team Status: Active Member Role Status Dates Jeremy Magallanes MD Primary Care Provider Active Team Status: Active Member Role Status Dates Jeremy Magallanes MD Primary Care Provider Active Start: June 03, 2024 Bill Henry DO Attending Provider Active Start: June 03, 2024 Team Status: Inactive Member Role Status Dates Jeremy Magallanes MD Primary Care Provider Active Start: June 03, 2024 End: June 03, 2024 Bill Henry DO Attending Provider Active Start: June 03, 2024 End: June 03, 2024 Team Status: Inactive Member Role Status Dates Jeremy Magallanes MD Primary Care Provide r, Attending Provider Active Start: June 17, 2024 End: June 17, 2024 Team Status: Active Member Role Status [...] Provider Active Start : October 23, 2023 Hide Grader Relationship Specialty Start Date End Date Jeremy Magallanes MD [address] [place] [phone] PCP - General Family Medicine 01/23/23 Team Status: Inactive Member Role Status Dates Jeremy Magallanes MD Attending Provider Active St art: September 13, 2023 End: September 13, 2023 Hide Grader Relationship Specialty [place] [address] [place] [phone] Referring Family Medicine 05/12/24 Hide Grader Relationship Specialty Start Date End Date Jeremy Magallanes MD [address] [place] [phone] PCP - General Family Medicine 06/03/19 Hide Grader Relationship Specialty Start Date End Date Jeremy Magallanes MD [address] [place] [id number] PCP - General Family Medicine 06/03/19 Hide Grader Relationship Specialty Start Date End Date Jeremy Magallanes MD [address] [place] [address] PCP - General Family Medicine 06/03/19 Hide Grader Relationship Specialty Start Date End Date Jeremy Magallanes MD [address] [place] [address] PCP - General Family Medicine 06/03/19 Team Status: Active Member Role Status Dates Jeremy Magallanes MD Primary Care Provider Active Start: June 03, 2024 Bill Henry DO Attending Provider Active Start: June 03, 2024 Team Status: Inactive Member Role Status Dates Jeremy Magallanes MD Primary Care Provide r, Attending Provider Active Start: June 17, 2024 End: June 17, 2024 Goals (unrecognized section and content) Goals may be documented in a n alternate section Source Comments (unrecognize d section and content) In the event this informatio n is protected by the Federal Confidentiality of Alcohol and Drug Abuse Patient Records regulations: The Federal rules restrict any use of the information to criminally investigate or prosecute any alcohol or drug abuse patient.[facility] FOR RECORDS PERTAINING TO PATIENTS WHO [...] BE BASED ON THE PRIMARY CLINICAL RECORDS. [facility]. provides no warranty or guarantee of the accuracy or completeness of information in this document.
[2024-07-17 22:52] VITALS: BP 173/96; PULSE 60; TEMP 36.6; O2SAT 96; BMI 30.7
--- NOTE | 2024-07-17 23:55 | ED.GENADUL1 ---
HPI HPI - General Adult General Chief complaint: Upper Respiratory Infection Stated complaint: DIFF BREATHING Time Seen by Provider: 07/17/24 23:00 Source: patient Mode of arrival: walk-in Limitations: no limitations History of Present Illness HPI narrative: Pt developed left upper cervical lymphadenopathy without sore throat. he has chest cold and cough that produces some sputum. No fever. he is a daily smoker. He previously had the same about 2 months ago and ti resolved with prednisone and antibiotics. No dental or jaw pain. He wears dentures. Related Data Home Medications ?Medication ?Instructions ?Recorded ?Confirmed glipizide 5 mg-metformin 500 mg 1 tab PO BID 08/23/23 07/17/24 tablet lancets (Accu-Chek Fastclix Lancet 09/08/23 09/08/23 Drum) albuterol sulfate 90 mcg/actuation 2 puff inhalation Q6H PRN 06/01/24 07/17/24 aerosol inhaler shortness of breath or wheezing Previous Rx's ?Medication ?Instructions ?Recorded acetaminophen 300 mg-codeine 30 mg See Rx Instructions .Route 05/07/24 tablet .COMPLEX PRN pain #180 tabs doxycycline hyclate 100 mg capsule 100 mg PO BID 7 days #14 caps 07/18/24 prednisone 20 mg tablet 40 mg (2 x 20 mg) PO DAILY 5 days 07/18/24 #10 tabs Allergies Allergy/AdvReac Type Severity Reaction Status Date / Time fentanyl Allergy Intermediate Hives Verified 06/03/24 09:19 ofloxacin Allergy Intermediate HIVES Verified 05/18/24 07:19 olodaterol (From Stiolto Allergy Intermediate SHORTNESS Verified 05/18/24 07:19 Respimat) OF BREATH tiotropium (From Stiolto Allergy Intermediate SHORTNESS Verified 05/18/24 07:19 Respimat) OF BREATH zafirlukast Allergy Intermediate Hives Verified 05/18/24 07:19 Iodinated Contrast Media Allergy Unknown Unknown Verified 07/17/24 22:59 ibuprofen (From Motrin) AdvReac Mild Hives Verified 07/17/24 22:59 Opioid HPI Opioid Management Most Recent Opioid Data: Last Pain Scale 4 06/03/24 11:45 06/03/24 PFSH PFSH Medical History Melanoma ?C43.9 - Malignant melanoma of skin, unspecified (ICD-10) Tobacco user ?Z72.0 - Tobacco use (ICD-10) Type 2 diabetes mellitus with hyperglycemia ?E11.65 - Type 2 diabetes mellitus with hyperglycemia (ICD-10) Acute exacerbation of chronic obstructive pulmonary disease (COPD) ?J44.1 - Chronic obstructive pulmonary disease with (acute) exacerbation (ICD-10) Lumbar degenerative disc disease ?M51.36 - Other intervertebral disc degeneration, lumbar region (ICD-10) Influenza ?J11.1 - Influenza due to unidentified influenza virus with other respiratory manifestations (ICD-10) Acute bronchospasm ?J98.01 - Acute bronchospasm (ICD-10) Postoperative pain, acute, shoulder ?G89.18 - Other acute postprocedural pain (ICD-10) ?M25.519 - Pain in unspecified shoulder (ICD-10) Fever ?R50.9 - Fever, unspecified (ICD-10) Acute pain of right shoulder ?M25.511 - Pain in right shoulder (ICD-10) Rotator cuff arthropathy of right shoulder ?M12.811 - Other specific arthropathies, not elsewhere classified, right shoulder (ICD-10) Diabetes ?E11.9 - Type 2 diabetes mellitus without complications (ICD-10) COPD (chronic obstructive pulmonary disease) ?J44.9 - Chronic obstructive pulmonary disease, unspecified (ICD-10) Surgical History H/O colonoscopy ?Z98.890 - Other specified postprocedural states (ICD-10) History of carpal tunnel release ?Z98.890 - Other specified postprocedural states (ICD-10) H/O lumbosacral spine surgery ?Z98.890 - Other specified postprocedural states (ICD-10) S/P right rotator cuff repair ?Z98.890 - Other specified postprocedural states (ICD-10) Family History Other Family history of COPD (chronic obstructive pulmonary disease) Family history of cancer Family history of hypertension Social History Within the past year, how often did you have a drink containing alcohol: never Score interpretation: A score less than 4 is consistent with normal alcohol consumption. Smoking status: Current every day smoker Non-prescribed substance use: denies use Previous occupational history: retired Highest level of school completed/degree received: GED or equivalent Are you now , , , , never or living with a partner: In a typical week, how many times do you talk on the telephone with family, friends, or neighbors: 3 or more times per week How often do you get together with friends or relatives: 3 or more times per week How often do you attend advent or evangelical services: never Do you belong to any clubs or organizations such as advent groups unions, fraternal or athletic groups, or school groups: no Total score: 2 Score interpretation: A score of greater than or equal to 2 indicates the lowest level of social isolation. Little interest or pleasure in doing things: not at all Feeling down, depressed, or hopeless: not at all Feel stressed/tense/nervous/anxious/difficulty sleeping: not at all Do you think of yourself as: straight/heterosexual Gender Identity: male Exam Narrative Exam Narrative: Nurses notes and vital signs reviewed and patient is not hypoxic. afebrile General: Well-appearing and in no apparent distress. Skin: Warm, dry, no pallor noted. No rash. Head: Normocephalic, atraumatic. Neck: Supple, no meningismus. Tender left submandibular lymphadenopathy. No skin rash noted. Eye: Pupils are equal, round and EOMI. No scleral icterus. Ears, Nose, Mouth, and Throat: TM are clear, no posterior oropharynx erythema or nasal mucosal hypertrophy, uvula is mid-line, no mass noted underneath the tongue. No tenderness along the left and right lower gumline. Oral mucosa is moist Cardiovascular: Regular Rate and Rhythm without murmur, gallop or rub. Respiratory: No accessory muscle use or respiratory distress. Lungs with diffuse end expiratory wheezes. Musculoskeletal: normal ROM, no calf or popliteal tenderness, no lower extremity edema/swelling Neurological: A&O x4. No cranial nerve dysfunction observed. No truncal ataxia. Moves all extremities. Sensation intact. Psychiatric: Cooperative and interactive. Normal mood and affect. Constitutional Vital Signs, click to edit/add: Last Vital Signs Temp 97.9 F 07/17/24 22:52 Pulse 60 07/17/24 22:52 Resp 95 H 07/17/24 22:52 BP 173/96 H 07/17/24 22:52 Pulse Ox 96 07/17/24 22:52 O2 Del Method Room Air 07/17/24 22:52 Course Vital Signs Vital signs: Vital Signs Temperature 97.9 F 07/17/24 22:52 Pulse Rate 60 07/17/24 22:52 Respiratory Rate 95 H 07/17/24 22:52 Blood Pressure 173/96 H 07/17/24 22:52 Pulse Oximetry 96 07/17/24 22:52 Oxygen Delivery Method Room Air 07/17/24 22:52 Temperature 97.9 F 07/17/24 22:52 Pulse Rate 60 07/17/24 22:52 Respiratory Rate 95 H 07/17/24 22:52 Blood Pressure 173/96 H 07/17/24 22:52 Pulse Oximetry 96 07/17/24 22:52 Oxygen Delivery Method Room Air 07/17/24 22:52 Medical Decision Making MDM Narrative Medical decision making narrative: Patient has symptoms of URI with associated reactive airway as well as some tender lymphadenopathy in the left submandibular region. Patient given oral doxycycline and oral prednisone in the emergency department and discharged home prescriptions for the same. He will see his PCP for follow up. Discharge Plan Discharge Chief Complaint: Upper Respiratory Infection Clinical Impression: Upper respiratory infection, Lymphadenopathy Patient Disposition: Home, Self-Care Time of Disposition Decision: 00:00 Prescriptions / Home Meds: New prednisone 20 mg tablet 40 mg PO DAILY 5 Days Qty: 10 0RF doxycycline hyclate 100 mg capsule 100 mg PO BID 7 Days Qty: 14 0RF No Action (DME) lancets [Accu-Chek Fastclix Lancet Drum] Misc MISCELLANEOUS glipizide-metformin 5-500 mg tablet 1 tab PO BID acetaminophen-codeine 300-30 mg tablet See Rx Instructions .ROUTE .COMPLEX PRN (Reason: pain) Qty: 180 0RF Rx Instructions: 1-2 tabs 3 times daily as needed for pain albuterol sulfate 90 mcg/actuation HFA aerosol inhaler 2 puff INHALATION Q6H PRN (Reason: shortness of breath or wheezing) Print Language: Sierra Leonean Instructions: Lymphadenopathy (ED), Upper Respiratory Infection (ED) Referrals: Hannah Gallo MD [Primary Care Provider] - 1 week
[2024-07-18] MEDS: PREDNISONE 20 MG TABLET 40 MG PO (00:04)
[2024-07-18] MEDS: DOXYCYCLINE MONOHYDRATE 100 MG CAPSULE PO (00:04)
== END 2024-07-18 00:10 | disposition home or self-care (01) ==
PROVIDERS: Emergency Provider Emergency Medicine; PCP Family Medicine
DX: J06.9 Acute upper respiratory infection, unspecified (principal); R59.0 Localized enlarged lymph nodes; F17.200 Nicotine dependence, unspecified, uncomplicated
CPT/HCPCS: 99283; J7512

== ENCOUNTER 2024-07-22 08:23 | Outpatient (OUT) | payer MEDICARE, SELFPAY ==
--- NOTE | 2024-07-22 08:38 | P.CN_ITS ---
Consult Note: HPI Data of Consult Patient: known to practice within the last 3 years Consult date: 12/26/23 Requesting Physician: Janneth Villalta NP Primary Care Provider: Hannah Gallo MD Consult Narrative Reason for consult: f/u Narrative: Nicholas Ziegler a pleasant 63 year old male with an extensive history of chronic low back pain post lumbar surgery in 1984, left l4 hemilaminectomy according to MRI. Patient also has a significant history of bilateral hip and groin pain. Patient rating low back pain sharp ache pressure shooting, increasing to 10/10 with twisting pushing pulling standing too long transitioning walking activity stairs, pain improved slightly when lying in recliner. Patient has failed to benefit from tylenol, allergy to NSAIDs, failed oxycodone-acetaminophen 5- 325mgs, hydrocodone-acetaminophen 10mgs, gabapentin unknown dosage. Patient has failed to benefit from PT and HEP greater than 6 weeks, increases his pain. Previously a patient at [facility] receiving epidurals q2 months for 7 years per patient, last MAGAN 07/11 with benefit. Currently tolerating tylenol #3 TID PRN without side effects, has been utilizing 10mg baclofen HS, has not tried 5mg during the day. previous bilateral L4-5 L5-S1 RFA >50% improvement ongoing, bilateral TFESI >50% improvement ongoing, pt did find his recent TPI helpful. cc:: CC: Janneth Villalta NP Review of Systems ROS Status of ROS 10 or more systems reviewed and unremark able except as noted in history and below Musculoskeletal Reports: back pain PFSH PFSH Medical History Melanoma ?C43.9 - Malignant melanoma of skin, unspecified (ICD-10) Tobacco user ?Z72.0 - Tobacco use (ICD-10) Type 2 diabetes mellitus with hyperglycemia ?E11.65 - Type 2 diabetes mellitus with hyperglycemia (ICD-10) Acute exacerbation of chronic obstructive pulmonary disease (COPD) ?J44.1 - Chronic obstructive pulmonary disease with (acute) exacerbation (ICD-10) Lumbar degenerative disc disease ?M51.36 - Other intervertebral disc degeneration, lumbar region (ICD-10) Influenza ?J11.1 - Influenza due to unidentified influenza virus with other respiratory manifestations (ICD-10) Acute bronchospasm ?J98.01 - Acute bronchospasm (ICD-10) Postoperative pain, acute, shoulder ?G89.18 - Other acute postprocedural pain (ICD-10) ?M25.519 - Pain in unspecified shoulder (ICD-10) Fever ?R50.9 - Fever, unspecified (ICD-10) Acute pain of right shoulder ?M25.511 - Pain in right shoulder (ICD-10) Rotator cuff arthropathy of right shoulder ?M12.811 - Other specific arthropathies, not elsewhere classified, right shoulder (ICD-10) Diabetes ?E11.9 - Type 2 diabetes mellitus without complications (ICD-10) COPD (chronic obstructive pulmonary disease) ?J44.9 - Chronic obstructive pulmonary disease, unspecified (ICD-10) Surgical History H/O colonoscopy ?Z98.890 - Other specified postprocedural states (ICD-10) History of carpal tunnel release ?Z98.890 - Other specified postprocedural states (ICD-10) H/O lumbosacral spine surgery ?Z98.890 - Other specified postprocedural states (ICD-10) S/P right rotator cuff repair ?Z98.890 - Other specified postprocedural states (ICD-10) Family History Other Family history of COPD (chronic obstructive pulmonary disease) Family history of cancer Family history of hypertension Social History Within the past year, how often did you have a drink containing alcohol: never Score interpretation: A score less than 4 is consistent with normal alcohol consumption. Smoking status: Current every day smoker Non-prescribed substance use: denies use Previous occupational history: retired Highest level of school completed/degree received: GED or equivalent Are you now , , , , never or living with a partner: In a typical week, how many times do you talk on the telephone with family, friends, or neighbors: 3 or more times per week How often do you get together with friends or relatives: 3 or more times per week How often do you attend religion or church services: never Do you belong to any clubs or organizations such as religion groups unions, fraearthmine or athletic groups, or school groups: no Total score: 2 Score interpretation: A score of greater than or equal to 2 indicates the lowest level of social isolation. Little interest or pleasure in doing things: not at all Feeling down, depressed, or hopeless: not at all Feel stressed/tense/nervous/anxious/difficulty sleeping: not at all Do you think of yourself as: straight/heterosexual Gender Identity: male Meds Home Medications and Allergies Home Medications ?Medication ?Instructions ?Recorded ?Confirmed ?Type glipizide 5 mg-metformin 500 mg 1 tab PO BID 08/23/23 07/17/24 History tablet lancets (Accu-Chek Fastclix Lancet 09/08/23 09/08/23 History Drum) acetaminophen 300 mg-codeine 30 mg See Rx Instructions .Route 05/07/24 07/17/24 Rx tablet .COMPLEX PRN pain #180 tabs albuterol sulfate 90 mcg/actuation 2 puff inhalation Q6H PRN 06/01/24 07/17/24 History aerosol inhaler shortness of breath or wheezing doxycycline hyclate 100 mg capsule 100 mg PO BID 7 days #14 caps 07/18/24 Rx prednisone 20 mg tablet 40 mg (2 x 20 mg) PO DAILY 5 days 07/18/24 Rx #10 tabs Allergies Allergy/AdvReac Type Severity Reaction Status Date / Time fentanyl Allergy Intermediate Hives Verified 06/03/24 09:19 ofloxacin Allergy Intermediate HIVES Verified 05/18/24 07:19 olodaterol (From Stiolto Allergy Intermediate SHORTNESS Verified 05/18/24 07:19 Respimat) OF BREATH tiotropium (From Stiolto Allergy Intermediate SHORTNESS Verified 05/18/24 07:19 Respimat) OF BREATH zafirlukast Allergy Intermediate Hives Verified 05/18/24 07:19 Iodinated Contrast Media Allergy Unknown Unknown Verified 07/17/24 22:59 ibuprofen (From Motrin) AdvReac Mild Hives Verified 07/17/24 22:59 Exam Constitutional Documenting provider has reviewed patient's vital signs: yes Common normals: no apparent distress, oriented x3, healthy appearing, alert and well nourished General appearance: cooperative HENMT Common normals: normocephalic, hearing grossly normal bilaterally and moist oral mucous membranes Head and scalp: normocephalic Eye Common normals: PERRL Pupil: PERRL Neck & C-Spine Common normals: full ROM General: normal visual inspection Chest Common normals: inspection of chest normal Respiratory Common normals: normal respiratory effort, no retractions and no use of accessory muscles Back & Pelvis Lumbar spine/lower back: ROM limited, pain with ROM, paraspinal muscle tenderness and paraspinal muscle spasm; no lumbar spinal tenderness Sacroiliac joints: SI joints normal Other: facet loading positive L1-3, negative L4-5 muscle spasming noted to right paralumbar spine strength 5/5 in [facility] Common normals: oriented x3, CN's II-XII intact bilaterally, moves all extremities, no focal motor deficits, no sensory deficits noted and deep tendon reflexes 2+ bilaterally Sensorium/orientation: alert Motor exam: strength 5/5 throughout and no movement abnormalities noted Psych Common normals: mental status grossly normal, thought process normal, cooperative, affect normal, speech normal and activity/motor behavior normal Speech: normal speech Thought process: normal thought process Results Additional Findings Additional findings: If on a controlled substance or opioids, I have checked an [place] report on this patient and there are no aberrancies noted in the prescribing history.??If on a controlled substance or opioid a drug screen was completed and reviewed within the last year, and if there has not been a drug screen completed we ordered one today to monitor higher risk, state monitored pain medication use. As part of providing excellent, safe, comprehensive care, the following was completed at our patient's visit: 1. A medication reconciliation and review to ensure accurate knowledge of current/active medications, including asking our patients to inform us about any [id number] medications or herbal remedies/nutritional supplements/alternative remedies. 2. A review to specifically ensure our patients have had annual screening for screening for depression, screening for tobacco use, and screening for unhealthy alcohol use. For concerning screenings had a discussion with the patient, provided patient education, and recommended follow-up with primary care provider when appropriate. If patient noted with a risk of falling, they received education on strength, gait, and balance training to prevent future risk of falling. Assessment and Plan Assessment and Plan (1) Lumbar spondylosis: (2) Lumbar stenosis with neurogenic claudication: (3) Failed back syndrome: (4) Sacroiliitis: (5) Chronic prescription opiate use: Plan pain well controlled at this time continue current medications continue HEP as tolerated f/u 3 months, sooner if needed
--- OUTSIDE RECORDS SUMMARY | 2024-07-22 08:42 | XMS_ITS | CCD ---
Author Organization [facility] Care Team Providers Care Entry Level Programmer Name Role Phone Ronnie Kesha Unavailable Chepe Harriet Unavailable Jeermy Magallanes Unavailable SONA, DR JEREMY Jovel Admitting [...] Consulting Unavailable JEREMY MAGALLANES Primary Care Physician [phone] Edin, Barbie Tellez Referring Unavailable Pocsophia, Barbie Tellez Attending Unavailable Pocsophia, Barbie Tellez Admitting Unavailable Jeremy Magallanes MD Primary Care Provider POCOS, BARBIE [...] Miranda Attending Unavailable Jeremy Magallanes MD Unavailable PRIYANKA VAZ Attending Unavailable JEREMY MAGALLANES Referring Unavailable JEREMY MAGALLANES Primary Care Unavailable Jeremy Magallanes MD Primary Care Provider MD Jeremy Magallanes Primary Care Provider DO Bill Henry Attending Provider Jeremy Magallanes Primary Care Unavailable Bill Henry Attending Unavailable Bill Henry Admitting Unavailable Allergies Allergy Classification Reported Allergen(s) Allergy Type Date of Onset Reaction(s) Facility (20 sources) Ibuprofen Drug Allergy [facility] Other (20 sources) olodaterol / tiotropium Drug Allergy shortness of breath [facility] Other (20 sources) CT Scan dye Propensity to adverse reactions [facility] Other (9 sources) Ibuprofen; Translations: [IBUPROFEN] Drug Allergy 08-19-18 80 [facility] Repository (2 sources) Iodine (And Iodine Containting Drugs) Drug allergy (disorder) 09-07-19 16 [facility] Repository (1 source) NSAIDs Drug allergy (disorder) [facility] Repository (20 sources) fentaNYL Drug Allergy 12-05-19 24 Unknown, [facility] (8 sources) Ibuprofen Drug Allergy 01-15-20 15 Rash, [facility] (20 sources) Ofloxacin Drug Allergy 12-05-19 24 Unknown, [facility] (3 sources) zafirlukast Drug Allergy 05-29-20 15 Unknown [facility] Other (20 sources) Zafirlukast *ANTIASTHMATIC AND BRONCHODILATOR AGEN Propensity to adverse reactions Unknown [facility] Other (20 sources) Ibuprofen & Diet Manage Prod *ANALGESICS - ANTI-IN Propensity to adverse reactions Unknown [facility] Other (3 sources) Allergies Reconciled Propensity to adverse reactions Unknown [facility] Other (20 sources) Iodinated contrast media (substance) Drug allergy 06-03-20 19 Rash, Hives [facility] Other (3 sources) patient allergy list reviewed by nurse or physicia Propensity to adverse reactions 10-05-19 16 Comment:Done [employer] [employer] Other (6 sources) olodaterol Drug Allergy 12-05-19 24 shortness of breath [facility] (6 sources) tiotropium Drug Allergy 12-05-19 24 shortness of breath [facility] (7 sources) Iodinated Contrast Media; Translations: [IODINATED CONTRAST MEDIA] Allergy to substance 06-03-20 19 [facility] (6 sources) Ibuprofen & Diet Manage Prod * Allergy to substance 12-04-19 [facility] (6 sources) Zafirlukast *ANTIASTHMATIC AND Allergy to substance 12-04-19 [facility] Medications Current Medications Medication Drug Class(es) [...] Sep, Active take 2 tablets by mo [facility] every four hours as needed acetaminophen-codeine (TYLENOL [...] as needed Orally every 6 hrs Active [id number] 200 actuat albuterol 0.09 mg/actuat metered dose [...] Start: 07-19-2023 take 2 tablets by mo [facility] in the morning glipiZIDE-metFORMIN (Metaglip) 5-500 MG tablet Take 2 tablets by mouth in the morning and 2 tablets before bedtime. 0 07/19/2023 Active take [facility] daily glipiZIDE-metFORMIN HCl 5-500 MG 1 [...] Start: 11-23-2022 [facility] 2 [facility]-four hours predniSONE 20 MG [...] days May, Active Start: 2023 HYDROcodone-ac etaminophen ([place]) 10-325 MG tablet Start: 2023 take 1 [...] 30 mg oral tablet (5 sources) Uncompetitive Z-qscklb-X-aspartate Receptor Antagonist, Sigma-1 Agonist Start: 05-26-2021 take 1 tablet by mouth every eight hours [place] DMT 30-30 MG 1 tablet Orally every [...] 8:39am Start: 02-20-2023 take 1 capsule by [facility] twenty-four hours Cymbalta 60 MG [...] 10-05-2015 [facility] Other aftercare (1 source) Other title manager (current) drug therapy; Translations: [OTH HALFWAY CURRENT [...] Test Name Value Interpretation Reference Range Facility [facility] 06-03-2024 [facility] No Panel InformationOrdered By: Rosalia Shea on 06-03-2024 [facility] No Panel InformationOrdered By: Bill Henry on 06-03-2024 Miscellaneous Pathology Test See comment [facility] Comment on above: See report. Scanned copy available in EMR. No Panel Informationon 06-03 Helicobacter pylori Urease Test Negative [facility] Pathology Request for Lab Co rpon 06-03-2024 Pathology Request for Lab Raymond Normal [facility] Comment on above: Order Comment: PATHO LOGY GI SPECIMEN Result Comment: See report. Scanned copy available in EMR. PERFORMED BY: [place] [address] PATHOLOGIST CLARIFICATION OPERATOR JON PONCE M.D. Performed By: #### P ATH TO [facility] #### [address] [place] 05-14-2024 [id number] NICHOLAS CRAIG ([id number]) 1960 M Date Time Provider Department 05/14/24 MERAZ, AMEYA [id number] During your visit today, we recorded the following information about you: Keily Martines 05/14/2024 1:11 PM Signed Referral was sent from [facility] for new consult with Dr Meraz Please see below and advise Vivian Morley 05/15/2024 11:54 AM Addendum Consult from Dr. 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] Problem List As Of Date: 05/14/2024 (None) Encounter Status:Closed by VIVIAN MORLEY on 05/21/24 [facility] Basophils Auto (Bld) [#/Vol] on 02-27-2024 Basophils (Bld) [#/Vol] 0.1 10 3/uL 0.0-0.1 [facility] Basophils/100 WBC Auto (Bld) on 02-27-2024 Basophils/100 WBC (Bld) 0.5 % 0.2-2.0 [facility] Eosinophils/100 WBC Auto (Bl d)on 02-27-2024 Eosinophils/100 WBC (Bld) 2.5 % 0.9-7.0 [facility] Erythrocyte distribution wid th Auto (RBC) [Ratio]on 02-27-2024 Erythrocyte distribution width (RBC) [Ratio] 13.5 % 11.0-15.0 [facility] Estimated glomerular filtrat ion rate (GFR) non- Americanon 02-27-2024 GFR/1.73 sq M.predicted among non-blacks MDRD (S/P/Bld) [Vol rate/Area] mL/min/{1.73_m2} >=60 [facility] Hematocrit Auto (Bld) [Volum e fraction]on 02-27-2024 Hematocrit (Bld) [Volume fraction] 47.1 % 42.0-54.0 [facility] Hemoglobin [Mass/volume] in Bloodon 02-27-2024 Hemoglobin (Bld) [Mass/Vol] 15.5 g/dL 14.0-18.0 [facility] Laboratory - Chemistry and C hemistry - challengeon 02-27-2024 Calcium [Mass/Vol] 8.9 mg/dL 8.5-10.1 [facility] Chloride [Moles/Vol] 98 mmol/L 98-107 [facility] CO2 [Moles/Vol] 28.1 mmol/L 21.0-32.0 [facility] Creatinine [Mass/Vol] 0.86 mg/dL 0.70-1.30 [facility] GFR/1.73 sq M.predicted MDRD (S/P/Bld) [Vol rate/Area] mL/min/{1.73_m2} >=60 [facility] Glucose [Mass/Vol] 237 mg/dL High 74-106 [facility] Lactate [Moles/Vol] 1.3 mmol/L 0.4-2.0 [facility] Potassium [Moles/Vol] 4.4 mmol/L 3.5-5.1 [facility] Sodium [Moles/Vol] 130 mmol/L Low 136-145 [facility] Urea nitrogen [Mass/Vol] 21.0 mg/dL High 7.0-18.0 [facility] Urea nitrogen/Creatinine [Mass ratio] 24.4 mg/mg [facility] Laboratory - Hematology and Cell countson 02-27-2024 Immature granulocytes/100 WBC (Bld) 0.3 % 0.0-0.5 [facility] Leukocytes [#/volume] correc jean claude for nucleated erythrocytes in Blood by Automated counon 02-27-2024 WBC corrected for nucl RBC Auto (Bld) [#/Vol] 9.3 10 3/uL 4.0-11.0 [facility] Lymphocytes Auto (Bld) [#/Vo l]on 02-27-2024 Lymphocytes (Bld) [#/Vol] 2.4 10 3/uL 1.2-3.8 [facility] Lymphocytes/100 WBC Auto (Bl d)on 02-27-2024 Lymphocytes/100 WBC (Bld) 25.5 % 20.5-60.0 [facility] MCH Auto (RBC) [Entitic mass ]on 02-27-2024 MCH (RBC) [Entitic mass] 29.1 pg 25.9-34.0 [facility] MCHC Auto (RBC) [Mass/Vol]on 02-27-2024 MCHC (RBC) [Mass/Vol] 32.9 g/dL 29.9-35.2 [facility] MCV Auto (RBC) [Entitic vol] on 02-27-2024 MCV (RBC) [Entitic vol] 88.5 fL 80.0-94.0 [facility] Monocytes Auto (Bld) [#/Vol] on 02-27-2024 Monocytes (Bld) [#/Vol] 1.1 10 3/uL High 0.3-0.8 [facility] Monocytes/100 WBC Auto (Bld) on 02-27-2024 Monocytes/100 WBC (Bld) 12.0 % 1.7-12.0 [facility] Neutrophils Auto (Bld) [#/Vo l]on 02-27-2024 Neutrophils (Bld) [#/Vol] 5.5 10 3/uL 1.4-6.5 [facility] Neutrophils/100 WBC Auto (Bl d)on 02-27-2024 Neutrophils/100 WBC (Bld) 59.2 % 43.0-75.0 [facility] No Panel Informationon 02-26 Eosinophils # (Auto) 0.2 10 3/uL 0.0-0.7 [facility] Immature Granulocyte # (Auto) 0.03 10 3/uL 0.00-0.03 [facility] Platelet mean volume Auto (B ld) [Entitic vol]on 02-27-2024 Platelet mean volume (Bld) [Entitic vol] 8.8 fL Low 9.5-13.5 [facility] Platelets Auto (Bld) [#/Vol] on 02-27-2024 Platelets (Bld) [#/Vol] 288 10 3/uL 150-450 [facility] RBC Auto (Bld) [#/Vol]on RBC (Bld) [#/Vol] 5.32 10 6/uL 4.70-6.10 [facility] Serum or plasma anion gap de terminationon 02-27-2024 Anion gap [Moles/Vol] 8.3 mmol/L [facility] Basophils Auto (Bld) [#/Vol] on 12-05-2023 Basophils (Bld) [#/Vol] 0.1 10 3/uL 0.0-0.1 [facility] Basophils/100 WBC Auto (Bld) on 12-05-2023 Basophils/100 WBC (Bld) 0.9 % 0.2-2.0 [facility] Eosinophils/100 WBC Auto (Bl d)on 12-05-2023 Eosinophils/100 WBC (Bld) 2.7 % 0.9-7.0 [facility] Erythrocyte distribution wid th Auto (RBC) [Ratio]on 12-05-2023 Erythrocyte distribution width (RBC) [Ratio] 13.1 % 11.0-15.0 [facility] Estimated glomerular filtrat ion rate (GFR) non- Americanon 12-05-2023 GFR/1.73 sq M.predicted among non-blacks MDRD (S/P/Bld) [Vol rate/Area] mL/min/{1.73_m2} >=60 [facility] Glucose mean value [Mass/vol ume] in Blood Estimated from glycated hemoglobinon 12-05-2023 Average glucose Estimated from glycated hemoglobin (Bld) [Mass/Vol] 171 mg/dL [facility] Hematocrit Auto (Bld) [Volum e fraction]on 12-05-2023 Hematocrit (Bld) [Volume fraction] 48.9 % 42.0-54.0 [facility] Hemoglobin [Mass/volume] in Bloodon 12-05-2023 Hemoglobin (Bld) [Mass/Vol] 16.0 g/dL 14.0-18.0 [facility] Laboratory - Chemistry and C hemistry - challengeon 12-05-2023 Calcium [Mass/Vol] 9.7 mg/dL 8.5-10.1 [facility] Chloride [Moles/Vol] 102 mmol/L 98-107 [facility] CO2 [Moles/Vol] 27.6 mmol/L 21.0-32.0 [facility] Creatinine [Mass/Vol] 1.01 mg/dL 0.70-1.30 [facility] GFR/1.73 sq M.predicted MDRD (S/P/Bld) [Vol rate/Area] mL/min/{1.73_m2} >=60 [facility] Glucose [Mass/Vol] 156 mg/dL High 74-106 [facility] Potassium [Moles/Vol] 4.4 mmol/L 3.5-5.1 [facility] Sodium [Moles/Vol] 139 mmol/L 136-145 [facility] Urea nitrogen [Mass/Vol] 13.0 mg/dL 7.0-18.0 [facility] Urea nitrogen/Creatinine [Mass ratio] 12.9 mg/mg [facility] Laboratory - Hematology and Cell countson 12-05-2023 ESR (Bld) [Velocity] 17 mm/h <=20 [facility] HbA1c (Bld) [Mass fraction] 7.6 % High 4.5-6.2 [facility] Comment on above: ADA RECOMMENDED LIMI T 4.0 - 6.0ADA THERAPEUTIC TARGET < 7.0ACTION SUGGESTED> 7.0 Immature granulocytes/100 WBC (Bld) 0.4 % 0.0-0.5 [facility] Leukocytes [#/volume] correc jean claude for nucleated erythrocytes in Blood by Automated counon 12-05-2023 WBC corrected for nucl RBC Auto (Bld) [#/Vol] 7.7 10 3/uL 4.0-11.0 [facility] Lymphocytes Auto (Bld) [#/Vo l]on 12-05-2023 Lymphocytes (Bld) [#/Vol] 2.4 10 3/uL 1.2-3.8 [facility] Lymphocytes/100 WBC Auto (Bl d)on 12-05-2023 Lymphocytes/100 WBC (Bld) 31.2 % 20.5-60.0 [facility] MCH Auto (RBC) [Entitic mass ]on 12-05-2023 MCH (RBC) [Entitic mass] 28.5 pg 25.9-34.0 [facility] MCHC Auto (RBC) [Mass/Vol]on 12-05-2023 MCHC (RBC) [Mass/Vol] 32.7 g/dL 29.9-35.2 [facility] MCV Auto (RBC) [Entitic vol] on 12-05-2023 MCV (RBC) [Entitic vol] 87.0 fL 80.0-94.0 [facility] Monocytes Auto (Bld) [#/Vol] on 12-05-2023 Monocytes (Bld) [#/Vol] 0.7 10 3/uL 0.3-0.8 [facility] Monocytes/100 WBC Auto (Bld) on 12-05-2023 Monocytes/100 WBC (Bld) 9.5 % 1.7-12.0 [facility] Neutrophils Auto (Bld) [#/Vo l]on 12-05-2023 Neutrophils (Bld) [#/Vol] 4.2 10 3/uL 1.4-6.5 [facility] Neutrophils/100 WBC Auto (Bl d)on 12-05-2023 Neutrophils/100 WBC (Bld) 55.3 % 43.0-75.0 [facility] No Panel Informationon 12-04 Eosinophils # (Auto) 0.2 10 3/uL 0.0-0.7 [facility] Immature Granulocyte # (Auto) 0.03 10 3/uL 0.00-0.03 [facility] Platelet mean volume Auto (B ld) [Entitic vol]on 12-05-2023 Platelet mean volume (Bld) [Entitic vol] 8.6 fL Low 9.5-13.5 [facility] Platelets Auto (Bld) [#/Vol] on 12-05-2023 Platelets (Bld) [#/Vol] 330 10 3/uL 150-450 [facility] RBC Auto (Bld) [#/Vol]on RBC (Bld) [#/Vol] 5.62 10 6/uL 4.70-6.10 [facility] Serum or plasma anion gap de terminationon 12-05-2023 Anion gap [Moles/Vol] 13.8 mmol/L [facility] 07-02-2023 Magnesium [Mass/Vol] 2.1552695 mg/dL Normal 1.8- 2.4 mg/dL [employer] Other Magnesium see note [facility] Other MRI Shoulder w/o Contrast [facility] 05-31-2023 MRI Shoulder w/o Contrast Right Exam [...] TAMARA Technologist: STELLA Technical Comments None Normal [facility] Consent for Treatmenton 05-19 Consent for Treatment [id number] #1.00TIFF Normal [facility] RAD - MRI Screening Formon 1 RAD - MRI Screening Form [id number]# 1.00TIFF Normal [facility] Physician Orderon 05-09-2023 Physician Order [id number] 4#1.00CD:127 Normal [facility] XR CHEST 2 Von 11-24-2022 XR CHEST [...] by: RUBI TAVERAS Date: 2022-11-24 17:17 Normal [facility] CT LUNG CANCER SCREENINGon 1 [...] YEISON NAVAS Date: 2022-07-20 07:18 Normal [facility] CBC AUTO DIFFon 06-07-2022 BASO # 0.1 103/ul Normal 0.0-0.1 [facility] Comment on above: Performed By: #### C BC #### [facility] [address] [place] [address] Dr. Eran Chacon Basophils/100 WBC (Bld) 0.6 % Normal 0.2-2.0 [facility] Comment on above: Performed By: #### C BC #### [facility] [address] [place] [address] Dr. Eran Chacon EO # 0.3 103/ul Normal 0.0-0.7 [facility] Comment on above: Performed By: #### C BC #### [facility] [address] [address] [address] Eran Chacon Eosinophils/100 WBC (Bld) 3.3 % Normal 0.9-7.0 [facility] Comment on above: Performed By: #### C BC #### [facility] [address] [place] [address] Dr. Eran Chacon Erythrocyte distribution width (RBC) [Ratio] 12.9 % Normal 11.0-15.0 [facility] Comment on above: Performed By: #### C BC #### [facility] [address] [place] [address] Dr. Eran Chacon Hematocrit (Bld) [Volume fraction] 47.7 % Normal 42.0-54.0 [facility] Comment on above: Performed By: #### C BC #### [facility] [address] [place] [address] Dr. Eran Chacon Hemoglobin (Bld) [Mass/Vol] 15.9 g/dL Normal 14.0-18.0 [facility] Comment on above: Performed By: #### C BC #### [facility] [address] [place] [address] Dr. Eran Chacon IG # 0.02 10e3/ul Normal 0.00-0.03 [facility] Comment on above: Performed By: #### C BC #### [facility] [address] [place] [address] Dr. Eran Chacon IG % 0.2 % Normal 0.0-0.5 [facility] Comment on above: Performed By: #### C BC #### [facility] [address] [place] [address] Dr. Eran Chacon LYMPH # 3.4 103/ul Normal 1.2-3.8 [facility] Comment on above: Performed By: #### C BC #### [facility] [address] [place] [address] Dr. Eran Chacon Lymphocytes/100 WBC (Bld) 34.5 % Normal 20.5-60.0 [facility] Comment on above: Performed By: #### C BC #### [facility] [address] [place] [address] Dr. Eran Chacon MANUAL DIFF REQ NO Normal [facility] Comment on above: Performed By: #### C BC #### [facility] [address] [place] [address] Dr. Eran Chacon MCH (RBC) [Entitic mass] 29.6 pg Normal 25.9-34.0 [facility] Comment on above: Performed By: #### C BC #### [facility] [address] [address] [address] Eran Chacon MCHC (RBC) [Mass/Vol] 33.3 g/dL Normal 29.9-35.2 [facility] Comment on above: Performed By: #### C BC #### [facility] [address] [address] [address] Eran Chacon MCV (RBC) [Entitic vol] 88.8 fL Normal 80.0-94.0 [facility] Comment on above: Performed By: #### C BC #### [facility] [address] [address] [address] Eran Chacon MONO # 0.9 103/ul Critically high 0.3-0.8 [facility] Comment on above: Performed By: #### C BC #### [facility] [address] [place] [address] Dr. Eran Chacon Monocytes/100 WBC (Bld) 9.3 % Normal 1.7-12.0 [facility] Comment on above: Performed By: #### C BC #### [facility] [address] [address] [address] Eran Chaocn NEUT # 5.2 103/ul Normal 1.4-6.5 [facility] Comment on above: Performed By: #### C BC #### [facility] [address] [place] [address] Dr. Eran Chacon Neutrophils/100 WBC (Bld) 52.1 % Normal 43.0-75.0 [facility] Comment on above: Performed By: #### C BC #### [facility] [address] [address] [address] Eran Chacon Platelet mean volume (Bld) [Entitic vol] 8.8 fL Critically low 9.5-13.5 [facility] Comment on above: Performed By: #### C BC #### [facility] [address] [place] [address] Dr. Eran Chacon PLT 287 103/ul Normal 150-450 [facility] Comment on above: Performed By: #### C BC #### [facility] [address] [place] [address] Dr. Eran Chacon RBC 5.37 106/ul Normal 4.70-6.10 [facility] Comment on above: Performed By: #### C BC #### [facility] [address] [place] [address] Dr. Eran Chacon WBC 9.9 103/ul Normal 4.0-11.0 [facility] Comment on above: Performed By: #### C BC #### [facility] [address] [place] [address] Dr. Eran Chacon ER URINE PROFILEon 2 Bilirubin Ql (U) Negative Normal NEGATIVE [facility] Comment on above: Performed By: #### BISHNU BATESRO #### [facility] [address] [place] [address] Dr. Eran Chacon Clarity (U) CLEAR Normal CLEAR [facility] Comment on above: Performed By: #### BISHNU BATESRO #### [facility] [address] [place] [address] Dr. Eran Chacon Color (U) YELLOW Normal YELLOW [facility] Comment on above: Performed By: #### BISHNU BATESRO #### [facility] [address] [place] [address] Dr. Eran GATES A micrscopic examination will be performed if indicated. Normal [facility] Comment on above: Performed By: #### BISHNU BATESRO #### [facility] [address] [place] [address] Dr. Eran Chacon Glucose Ql (U) 500 mg/dl Abnormal NEGATIVE [facility] Comment on above: Performed By: #### BISHNU BATESRO #### [facility] [address] [place] [address] Dr. Eran Cahcon Hemoglobin Ql (U) TRACE-INTACT Abnormal NEGATIVE [facility] Comment on above: Performed By: #### BISHNU BATESRO #### [facility] [address] [place] [address] Dr. Eran Chacon Ketones Ql (U) Negative Normal NEGATIVE [facility] Comment on above: Performed By: #### Med SHER UMICRO #### [facility] [address] [place] [address] Dr. Eran Chacon LEUKOCYTES Negative Normal NEGATIVE [facility] Comment on above: Performed By: #### Med SHER, UMICRO #### [facility] [address] [place] [address] Dr. Eran Chacon Nitrite Ql (U) Negative Normal NEGATIVE [facility] Comment on above: Performed By: #### Med SHER UMICRO #### [facility] [address] [place] [address] Dr. Eran Chacon pH (U) 6.0 [pH] Normal 5-9 [facility] Comment on above: Performed By: #### Med SHER UMICRO #### [facility] [address] [place] [address] Dr. Eran Chacon SPEC GRAVITY 1.025 Normal 1.005-<=1.02 5 [facility] Comment on above: Performed By: #### Med SHER UMICRO #### [facility] [address] [place] [address] Dr. Eran Chacon UA PROTEIN Negative Normal NEGATIVE/ TRACE [facility] Comment on above: Performed By: #### Med SHER UMICRO #### [facility] [address] [place] [address] Dr. Eran Chacon UR MICRO IND INDICATED Normal [facility] Comment on above: Performed By: #### Med SHER UMICRO #### [facility] [address] [place] [address] Dr. Eran Chacon Urobilinogen Qn (U) 0.2 {Aureliano'U}/dL Normal 0.2 - 1. 0 [facility] Comment on above: Performed By: #### Med SHER, UMICRO #### [facility] [address] [place] [address] Dr. Eran Chacon PROF 14(COMP METB)on 022 Albumin [Mass/Vol] 4.0 g/dL Normal 3.4-5.0 [facility] Comment on above: Performed By: #### C MP #### [facility] [address] [place] [address] Dr. Eran Chacon Albumin/Globulin [Mass ratio] 1.2 {ratio} Normal [facility] Comment on above: Performed By: #### C MP #### [facility] [address] [place] [address] Dr. Eran Chacon ALP [Catalytic activity/Vol] 104 U/L Normal 46-116 [facility] Comment on above: Performed By: #### C MP #### [facility] [address] [place] [address] Dr. Eran Chacon ALT [Catalytic activity/Vol] 28 U/L Normal 16-63 [facility] Comment on above: Performed By: #### C MP #### [facility] [address] [place] [address] Dr. Eran Chacon Anion gap [Moles/Vol] 7.2 mmol/L Normal [facility] Comment on above: Performed By: #### C MP #### [facility] [address] [place] [address] Dr. Eran Chacon AST [Catalytic activity/Vol] 14 U/L Critically low 15-37 [facility] Comment on above: Performed By: #### C MP #### [facility] [address] [place] [address] Dr. Eran Chacon Bilirubin [Mass/Vol] 0.4 mg/dL Normal 0.2-1.0 [facility] Comment on above: Performed By: #### C MP #### [facility] [address] [place] [address] Dr. Eran Chacon Calcium [Mass/Vol] 9.0 mg/dL Normal 8.5-10.1 [facility] Comment on above: Performed By: #### C MP #### [facility] [address] [place] [address] Dr. Eran Chacon Chloride [Moles/Vol] 103 mmol/L Normal 98-107 [facility] Comment on above: Performed By: #### C MP #### [facility] [address] [address] [address] Eran Chacon CO2 [Moles/Vol] 30.0 mmol/L Normal 21.0-32.0 [facility] Comment on above: Performed By: #### C MP #### [facility] [address] [address] [address] Eran Chacon Creatinine [Mass/Vol] 0.85 mg/dL Normal 0.70-1.30 [facility] Comment on above: Performed By: #### C MP #### [facility] [address] [address] [address] Eran Chacon EGFR-AF PALESTINIAN >60 Normal >=60 [facility] Comment on above: Performed By: #### C MP #### [facility] [address] [address] [address] Eran Chacon EGFR-NON AF PALESTINIAN >60 Normal >=60 [facility] Comment on above: Performed By: #### C MP #### [facility] [address] [address] [address] Eran Chacon Globulin (S) [Mass/Vol] 3.3 g/dL Normal [facility] Comment on above: Performed By: #### C MP #### [facility] [address] [place] [address] Dr. Eran Chacon Glucose [Mass/Vol] 165 mg/dL Critically high 74-106 [facility] Comment on above: Performed By: #### C MP #### [facility] [address] [place] [address] Dr. Eran Chacon Potassium [Moles/Vol] 4.2 mmol/L Normal 3.5-5.1 [facility] Comment on above: Performed By: #### C MP #### [facility] [address] [address] [address] Eran Chacon Protein [Mass/Vol] 7.3 g/dL Normal 6.4-8.2 [facility] Comment on above: Performed By: #### C MP #### [facility] [address] [address] [address] Eran Chacon Sodium [Moles/Vol] 136 mmol/L Normal 136-145 [facility] Comment on above: Performed By: #### C MP #### [facility] [address] [place] [address] Dr. Eran Chacon Urea nitrogen [Mass/Vol] 10.0 mg/dL Normal 7.0-18.0 [facility] Comment on above: Performed By: #### C MP #### [facility] [address] [place] [address] Dr. Eran Chacon Urea nitrogen/Creatinine [Mass ratio] 11.8 mg/mg Normal [facility] Comment on above: Performed By: #### C MP #### [facility] [address] [place] [address] Dr. Eran Chacon URINE MICROSCOPIC ONLYon BACTERIA NONE SEEN Normal NONE SEEN [facility] Comment on above: Performed By: #### Med SHER UMICRO #### [facility] [address] [place] [address] Dr. Eran Chacon Bacteria identified Cx Nom (U) NOT INDICATED Normal [facility] Comment on above: Performed By: #### Med SHER UMICRO #### [facility] [address] [place] [address] Dr. Eran Chacon CAST NONE SEEN Normal NONE SEEN [facility] Comment on above: Performed By: #### Med SHER UMICRO #### [facility] [address] [place] [address] Dr. Eran Chacon Crystals LM Nom (Urine sed) NONE SEEN Normal NONE SEEN [facility] Comment on above: Performed By: #### Med SHER UMICRO #### [facility] [address] [place] [address] Dr. Eran Chacon Epithelial cells LM Ql (Urine sed) RARE Normal NONE SEEN /RARE [facility] Comment on above: Performed By: #### Med SHER UMICRO #### [facility] [address] [place] [address] Dr. Eran Chacon MUCOUS NONE SEEN Normal NONE SEEN [facility] Comment on above: Performed By: #### E BISHNU SHERRO #### [facility] [address] [address] [address] Eran Chacon RBC 0-2 Normal 0-2 [facility] Comment on above: Performed By: #### E BISHNU SHERRO #### [facility] [address] [address] [address] Eran Chacon WBC 2-5 Abnormal NONE SEEN [facility] Comment on above: Performed By: #### E BISHNU SHERRO #### [facility] [address] [address] [address] Eran Chacon MRI SHOULDER LT WO [...] by: YEISON NAVAS Date: 2022-02-02 17:09 Normal [facility] Vital Signs Date Time Vital Sign Value Performing Clinician Facility 06-17-2024 09:13-0400 Body height 175.26 cm MD Jeremy Magallanes Work Phone: [facility] 06-17-2024 09:13-0400 Body mass index (BMI) [Ratio] 33.5 kg/m2 MD Jeremy Magallanes Work Phone: [facility] 06-17-2024 09:13-0400 Body temperature 98.1 [degF] MD Jeremy Magallanes Work Phone: [facility] 06-17-2024 09:13-0400 Body weight 102.96 kg MD Jeremy Magallanes Work Phone: [facility] 06-17-2024 09:13-0400 Diastolic blood pressure 83 mm[Hg] MD Jeremy Magallanes Work Phone: [facility] 06-17-2024 09:13-0400 Heart rate 79 /min MD Jeremy Magallanes Work Phone: [facility] 06-17-2024 09:13-0400 Systolic blood pressure 149 mm[Hg] MD Jeremy Magallanes Work Phone: [facility] 05-27-2024 14:56-0400 Body height 175.3 cm Priyanka Vaz [employer] [facility] 05-27-2024 14:56-0400 Body mass index (BMI) [Ratio] 33.97 kg/m2 Priyanka Vaz [employer] Work Phone: [facility] 05-27-2024 14:56-0400 Body weight 104.33 kg Priyanka Vaz [employer] Work Phone: [facility] 03-18-2024 08:46-0400 Body height 175.26 cm [facility] 03-18-2024 08:46-0400 Body mass index (BMI) [Ratio] 34.4 kg/m2 [facility] 03-18-2024 08:46-0400 Body weight 105.68 kg [facility] 03-18-2024 08:46-0400 Diastolic blood pressure 80 mm[Hg] [facility] 03-18-2024 08:46-0400 Heart rate 72 /min [facility] 03-18-2024 08:46-0400 Systolic blood pressure 130 mm[Hg] [facility] 03-03-2024 11:54-0400 Body height 175.26 cm [facility] 03-03-2024 11:54-0400 Body mass index (BMI) [Ratio] 34.7 kg/m2 [facility] 03-03-2024 11:54-0400 Body weight 106.59 kg [facility] 03-03-2024 11:54-0400 Diastolic blood pressure 81 mm[Hg] [facility] 03-03-2024 11:54-0400 Heart rate 69 /min [facility] 03-03-2024 11:54-0400 Systolic blood pressure 129 mm[Hg] [facility] 12-17-2023 08:54-0400 Body height 175.26 cm [facility] 12-17-2023 08:54-0400 Body mass index (BMI) [Ratio] 35.2 kg/m2 [facility] 12-17-2023 08:54-0400 Body weight 108.4 kg [facility] 12-17-2023 08:54-0400 Diastolic blood pressure 76 mm[Hg] [facility] 12-17-2023 08:54-0400 Heart rate 76 /min [facility] 12-17-2023 08:54-0400 Systolic blood pressure 154 mm[Hg] [facility] 12-05-2023 08:52-0400 Body height 175.26 cm [facility] 12-05-2023 08:52-0400 Body mass index (BMI) [Ratio] 35 kg/m2 [facility] 12-05-2023 08:52-0400 Body weight 107.67 kg [facility] 12-05-2023 08:52-0400 Diastolic blood pressure 78 mm[Hg] [facility] 12-05-2023 08:52-0400 Heart rate 69 /min [facility] 12-05-2023 08:52-0400 Systolic blood pressure 147 mm[Hg] [facility] 09-13-2023 13:30-0500 Body height 175.26 cm Jeremy Magallanes Other [facility] 09-13-2023 13:30-0500 Body mass index (BMI) [Ratio] 33.22 kg/m2 Jeremy Magallanes Other [facility] Other 09-13-2023 13:30-0500 Body temperature 98.4 [degF] Jeremy Magallanes Other [facility] Other 09-13-2023 13:30-0500 Body weight 102.06 kg Jeremy Magallanes Other [facility] [employer] Other 09-13-2023 13:30-0500 Body weight 102.05 kg [facility] 09-13-2023 13:30-0500 Diastolic blood pressure 80 mm[Hg] Jeremy Magallanes Other [facility] 09-13-2023 13:30-0500 SaO2% (BldA) [Mass fraction] 93 % Jeremy Magallanes Other [facility] [employer] Other 09-13-2023 13:30-0500 Systolic blood pressure 118 mm[Hg] Jeremy Magallanes Other [facility] 08-13-2023 10:30-0500 Body height 175.26 cm Jeremy Magallanes Other [facility] Other 08-13-2023 10:30-0500 Body mass index (BMI) [Ratio] 33.9 kg/m2 Jeremy Magallanes Other [facility] Other 08-13-2023 10:30-0500 Body weight 104.15 kg Jeremy Magallanes Other [facility] Other 08-13-2023 10:30-0500 Diastolic blood pressure 78 mm[Hg] Jeremy Magallanes Other [facility] Other 08-13-2023 10:30-0500 Systolic blood pressure 124 mm[Hg] Jeremy Magallanes Other [facility] Other 06-25-2023 08:45-0500 Body height 175.26 cm Jeremy Magallanes Other [facility] Other 06-25-2023 08:45-0500 Body mass index (BMI) [Ratio] 33.37 kg/m2 Jeremy Magallanes Other [facility] [employer] Other 06-25-2023 08:45-0500 Body temperature 96.5 [degF] Jeremy Magallanes Other [facility] Other 06-25-2023 08:45-0500 Body weight 102.51 kg Jeremy Magallanes Other [facility] [employer] Other 06-25-2023 08:45-0500 Diastolic blood pressure 85 mm[Hg] Jeremy Magallanes Other [facility] [employer] Other 06-25-2023 08:45-0500 Systolic blood pressure 149 mm[Hg] Jeremy Magallanes Other [facility] [employer] Other 05-28-2023 10:45-0400 Body height 175.26 cm Jeremy Magallanes Other [facility] Other 05-28-2023 10:45-0400 Body mass index (BMI) [Ratio] 33.52 kg/m2 Jeremy Magallanes Other [facility] Other 05-28-2023 10:45-0400 Body weight 102.97 kg Jeremy Magallanes Other [facility] Other 05-28-2023 10:45-0400 Diastolic blood pressure 82 mm[Hg] Jeremy Magallanes Other [facility] [employer] Other 05-28-2023 10:45-0400 Systolic blood pressure 147 mm[Hg] Jeremy Magallanes Other [facility] Other 2023 08:45-0400 Body height 175.26 cm Jeremy Magallanes Other [facility] [employer] Other 2023 08:45-0400 Body mass index (BMI) [Ratio] 33.52 kg/m2 Jeremy Magallanes Other [facility] Other 2023 08:45-0400 Body weight 102.97 kg Jeremy Magallanes Other [facility] Other 2023 08:45-0400 Diastolic blood pressure 85 mm[Hg] Jeremy Magallanes Other [facility] Other 2023 08:45-0400 Systolic blood pressure 156 mm[Hg] Jeremy Magallanes Other [facility] Other 04-30-2023 09:45-0400 Body height 175.26 cm Jeremy Magallanes Other [facility] Other 04-30-2023 09:45-0400 Body mass index (BMI) [Ratio] 34.32 kg/m2 Jeremy Magallanes Other [facility] Other 04-30-2023 09:45-0400 Body temperature 96.2 [degF] Jeremy Magallanes Other [facility] Other 04-30-2023 09:45-0400 Body weight 105.42 kg Jeremy Magallanes Other [facility] Other 04-30-2023 09:45-0400 Diastolic blood pressure 78 mm[Hg] Jeremy Magallanes Other [facility] Other 04-30-2023 09:45-0400 Respiratory rate 16 /min Jeremy Magallanes Other [facility] Other 04-30-2023 09:45-0400 Systolic blood pressure 146 mm[Hg] Jeremy Magallanes Other [facility] Other 02-20-2023 09:15-0400 Body height 175.26 cm Jeremy Magallanes Other [facility] Other 02-20-2023 09:15-0400 Body mass index (BMI) [Ratio] 33.46 kg/m2 Jeremy Magallanes Other [facility] Other 02-20-2023 09:15-0400 Body weight 102.79 kg Jeremy Magallanes Other [facility] Other 02-20-2023 09:15-0400 Diastolic blood pressure 77 mm[Hg] Jeremy Magallanes Other [facility] Other 02-20-2023 09:15-0400 Systolic blood pressure 131 mm[Hg] Jeremy Magallanes Other [facility] Other 01-17-2023 08:45-0400 Body height 175.26 cm Jeremy Magallanes Other [facility] Other 01-17-2023 08:45-0400 Body mass index (BMI) [Ratio] 33.37 kg/m2 Jeremy Magallanes Other [facility] Other 01-17-2023 08:45-0400 Body weight 102.51 kg Jeremy Magallanes Other [facility] Other 01-17-2023 08:45-0400 Diastolic blood pressure 79 mm[Hg] Jeremy Magallanes Other [facility] Other 01-17-2023 08:45-0400 Systolic blood pressure 128 mm[Hg] Jeremy Magallanes Other [facility] Other 11-23-2022 09:30-0400 Body height 175.26 cm Jeremy Magallanes Other [facility] Other 11-23-2022 09:30-0400 Body mass index (BMI) [Ratio] 33.96 kg/m2 Jeremy Magallanes Other [facility] Other 11-23-2022 09:30-0400 Body weight 104.33 kg Jeremy Magallanes Other [facility] Other 11-23-2022 09:30-0400 Diastolic blood pressure 72 mm[Hg] Jeremy Magallanes Other [facility] Other 11-23-2022 09:30-0400 Systolic blood pressure 122 mm[Hg] Jeremy Magallanes Other [facility] Other 09-04-2022 11:30-0500 Body height 175.26 cm Jeremy Magallanes Other [facility] Other 09-04-2022 11:30-0500 Body mass index (BMI) [Ratio] 33.52 kg/m2 Jeremy Magallanes Other [facility] Other 09-04-2022 11:30-0500 Body weight 102.97 kg Jeremy Magallanes Other [facility] Other 09-04-2022 11:30-0500 Diastolic blood pressure 80 mm[Hg] Jeremy Magallanes Other [facility] Other 09-04-2022 11:30-0500 SaO2% (BldA) [Mass fraction] 95 % Jeremy Magallanes Other [facility] Other 09-04-2022 11:30-0500 Systolic blood pressure 122 mm[Hg] Jeremy Magallanes Other [facility] Other 02-06-2022 12:45-0400 Body height 175.26 cm Kesha Olexa Other [facility] Other 02-06-2022 12:45-0400 Body mass index (BMI) [Ratio] 31.01 kg/m2 Kesha Olexa Other [facility] Other 02-06-2022 12:45-0400 Body weight 95.26 kg Kesha Olexa Other [facility] Other 05-26-2021 13:15-0400 Body height 175.26 cm Harriet Ginty Other [facility] Other 05-26-2021 13:15-0400 Body mass index (BMI) [Ratio] 31.01 kg/m2 Harriet Ginty Other [facility] Other 05-26-2021 13:15-0400 Body temperature 98.3 [degF] Harriet Elizabethnty Other [facility] Other 05-26-2021 13:15-0400 Body weight 95.26 kg Harriet Ginty Other [facility] Other 05-26-2021 13:15-0400 SaO2% (BldA) [Mass fraction] 96 % Harriet Elizabethnty Other [facility] Other Encounters Encounter Date Encounter Type Care Provider Facility Start: 06-17-2024 End: 06-17-2024 ambulatory MD Jeremy Magallanes Work Phone: [facility] Work Phone: Start: 06-17-2024 End: 06-17-2024 Patient encounter procedure MD Jeremy Magallanes Work Phone: [facility] Work Phone: Start: 06-12-2024 End: 06-12-2024 Orders Only Not In System Ref Prov [facility] Start: 06-10-2024 End: 06-10-2024 Orders Only Rosalia Shea [facility] Comment on above: Dysphagia, unspecifi ed type; Black stools Start: 06-03-2024 End: 06-03-2024 ambulatory MD Jeremy Magallanes Work Phone: [facility] Work Phone: Start: 06-03-2024 End: 06-03-2024 Departed Referred MD Jeremy Magallanes Work Phone: [facility] Start: 06-03-2024 Non-patient / Non-visit MD Angelina Magallanes Work Phone: [facility] Work Phone: Start: 05-27-2024 End: 05-27-2024 Office outpatient new 30 minutes Priyanka Rosalinda Kamari [employer] Work Phone: [facility] Comment on above: Dysphagia, unspecifi ed type (Primary Dx); Black stools; Gastroesophageal reflux disease, unspecified whether esophagitis present; Abnormal esophagram Start: 05-27-2024 End: 05-27-2024 ambulatory PRIYANKA VAZ [facility] Start: 05-18-2024 End: 05-18-2024 ambulatory Zacarias Pike MD Facility: [facility] Start: 05-14-2024 End: 05-21-2024 Telephone encounter Ameya Meraz MD Work Phone: General Surgery Comment on above: New Patient; Care Co ordinator - Other Start: 04-07-2024 End: 04-07-2024 ambulatory MALATHI SANCHEZ Not Available Start: 04-06-2024 End: 04-06-2024 ambulatory Zacarias Pike MD Facility: [facility] Start: 03-18-2024 End: 03-18-2024 ambulatory [facility] Work Phone: Start: 03-18-2024 End: 03-18-2024 Patient encounter procedure [facility] Work Phone: Start: 03-16-2024 End: 03-16-2024 ambulatory Zacarias Pike MD Facility: [facility] Start: 03-03-2024 End: 03-03-2024 ambulatory [facility] Work Phone: Start: 03-03-2024 End: 03-03-2024 Patient encounter procedure [facility] Work Phone: Start: 02-27-2024 Non-patient / Non-visit [facility] Work Phone: Start: 02-24-2024 End: 02-24-2024 ambulatory Zacarias Pike MD Facility:[facility] Start: 02-03-2024 End: 02-03-2024 ambulatory Zacarias Pike MD Facility:[facility] Start: 01-20-2024 End: 01-20-2024 ambulatory Zacarias Pike MD Facility:[facility] Start: 12-17-2023 End: 12-17-2023 ambulatory [facility] Work Phone: Start: 12-17-2023 End: 12-17-2023 Patient encounter procedure [facility] Work Phone: Start: 12-05-2023 End: 12-05-2023 ambulatory [facility] Work Phone: Start: 12-05-2023 End: 12-05-2023 Patient encounter procedure [facility] Work Phone: Start: 10-23-2023 Non-patient / Non-visit [facility] Work Phone: Start: 10-08-2023 Non-patient / Non-visit [facility] Work Phone: Start: 10-07-2023 End: 10-07-2023 ambulatory HI POCOS Not Available Start: 09-18-2023 End: 09-18-2023 ambulatory Jeremy Magallanes Other [facility] [employer] Other Start: 09-18-2023 Telephone encounter Jeremy Magallanes [facility] Start: 09-13-2023 End: 09-13-2023 ambulatory Jeremy Magallanes Other [facility] [employer] Other Start: 09-13-2023 Office outpatient vi sit 15 minutes Jeremy Magallanes [facility] Start: 09-13-2023 End: 09-13-2023 Patient encounter procedure [facility]- Start: 09-11-2023 Telephone encounter [place] [...] 09-10-2023 End: 09-10-2023 ambulatory Jeremy Magallanes Other [facility] [employer] Other Start: 09-10-2023 Telephone encounter Jeremy Magallanes [facility] Start: 09-06-2023 End: 09-06-2023 ambulatory Jeremy Magallanes Other [facility] [employer] Other Start: 09-06-2023 Telephone encounter Jeremy Magallanes [facility] Start: 09-02-2023 End: 09-02-2023 ambulatory BARBIE Telelz POCOS Not Available Start: 08-20-2023 End: 08-20-2023 ambulatory Jeremy Magallanes Other [facility] [employer] Other Start: 08-20-2023 Telephone encounter Jeremy Magallanes [facility] Start: 08-13-2023 End: 08-13-2023 ambulatory Jeremy Magallanes Other [facility] Other Start: 08-13-2023 Office outpatient vi sit 25 minutes Jeremy Magallanes [facility] Start: 08-13-2023 Telephone encounter Jeremy Magallanes [facility] Start: 08-06-2023 End: 08-06-2023 ambulatory Jeremy Sona Other [facility] [employer] Other Start: 08-06-2023 Telephone encounter Jeremy Magallanes [facility] Start: 07-29-2023 End: 07-29-2023 ambulatory BARBIE TAPIA Not Available Start: 07-22-2023 End: 07-22-2023 ambulatory Jeremy Sona Other [facility] [employer] Other Start: 07-22-2023 Telephone encounter Jeremy Magallanes [facility] Start: 07-19-2023 End: 07-19-2023 ambulatory Jeremy Sona Other [facility] Other Start: 07-19-2023 Telephone encounter Jeremy Sona [facility] Start: 07-18-2023 End: 07-18-2023 ambulatory Jeremy Sona Other [facility] Other Start: 07-18-2023 Telephone encounter Jeremy Magallanes [facility] Start: 07-02-2023 End: 07-02-2023 ambulatory Jeremy Sona Other [facility] [employer] Other Start: 07-02-2023 Office outpatient vi sit 15 minutes Jeremy Sona [facility] Start: 07-02-2023 Telephone encounter Jeremy Magallanes [facility] Start: 06-25-2023 End: 06-25-2023 ambulatory Jeremy Magallanes Other [facility] Other Start: 06-25-2023 Office outpatient vi sit 15 minutes Jeremy Sona [facility] Start: 06-21-2023 End: 06-21-2023 ambulatory Jeremy Magallanes Other [facility] [employer] Other Start: 06-21-2023 Encounter by edmond owen Jeremy Sona [facility] Start: 06-20-2023 End: 06-20-2023 ambulatory Jeremy Sona Other [facility] Other Start: 06-20-2023 Telephone encounter Jeremy Magallanes [facility] Start: 06-17-2023 End: 06-17-2023 ambulatory Jeremy Magallanes Other [facility] [employer] Other Start: 06-17-2023 Telephone encounter Jeremy Sona [facility] Start: 06-10-2023 End: 06-10-2023 ambulatory Jeremy Magallanes Other [facility] [employer] Other Start: 06-10-2023 Telephone encounter Jeremy Sona [facility] Start: 06-03-2023 End: 06-03-2023 ambulatory Jeremy Magallanes Other [facility] [employer] Other Start: 06-03-2023 Telephone encounter Jeremy Sona [facility] Start: 05-30-2023 End: 05-31-2023 ambulatory Hi Pocos Facility:[facility] Start: 05-30-2023 End: 05-30-2023 Patient encounter procedure Barbie Tellez Pocos [facility] Start: 05-28-2023 End: 05-28-2023 ambulatory Jeremy Magallanes Other [facility] [employer] Other Start: 05-28-2023 Office outpatient vi sit 15 minutes Jeremy Sona [facility] Start: 2023 End: 2023 ambulatory Jeremy Magallanes Other [facility] [employer] Other Start: 2023 Office outpatient vi sit 15 minutes Jeremy Magallanes [facility] Start: 05-16-2023 End: 05-16-2023 ambulatory Jeremy Magallanes Other [facility] Other Start: 05-16-2023 Telephone encounter Jeremy Magallanes [facility] Start: 04-30-2023 End: 04-30-2023 ambulatory Jeremy Sona Other [facility] Other Start: 04-30-2023 Office outpatient vi sit 15 minutes Jeremyyeyo Magallanes [facility] Start: 04-26-2023 End: 04-26-2023 ambulatory Jeremy Magallanes Other [facility] Other Start: 04-26-2023 Telephone encounter Jeremy Sona [facility] Start: 04-23-2023 End: 04-23-2023 ambulatory Jeremy Sona Other [facility] Other Start: 04-23-2023 Telephone encounter Jeremy Sona [facility] Start: 03-25-2023 End: 03-25-2023 ambulatory Jeremy Sona Other [facility] Other Start: 03-25-2023 Telephone encounter Jeremy Sona [facility] Start: 03-06-2023 End: 03-06-2023 ambulatory Jeremy Sona Other [facility] Other Start: 03-06-2023 Telephone encounter Jeremy Sona [facility] Start: 02-20-2023 End: 02-20-2023 ambulatory Jeremy Sona Other [facility] Other Start: 02-20-2023 Office outpatient vi sit 25 minutes Jeremy Sona [facility] Start: 02-05-2023 End: 02-05-2023 ambulatory Jeremy Magallanes Other [facility] [employer] Other Start: 02-05-2023 Telephone encounter Jeremy Sona [facility] Start: 01-21-2023 End: 01-21-2023 ambulatory Jeremy Sona Other [facility] Other Start: 01-21-2023 Telephone encounter Jeremy Magallanes [facility] Start: 01-17-2023 End: 01-17-2023 ambulatory Jeremy Magallanes Other [facility] Other Start: 01-17-2023 Office outpatient vi sit 15 minutes Jeremy Magallanes [facility] Start: 12-24-2022 End: 12-24-2022 ambulatory Jeremy Magallanes Other [facility] Other Start: 12-24-2022 Telephone encounter Jeremy Magallanes [facility] Start: 12-03-2022 End: 12-03-2022 ambulatory Jeremy Magallanes Other [facility] Other Start: 12-03-2022 Telephone encounter Jeremy Magallanes [facility] Start: 11-27-2022 End: 11-27-2022 ambulatory Jeremy Magallanes Other [facility] Other Start: 11-27-2022 Telephone encounter Jeremy Magallanes [facility] Start: 11-26-2022 End: 11-26-2022 ambulatory Jeremy Magallanes Other [facility] Other Start: 11-26-2022 Telephone encounter Jeremy Magallanes [facility] Start: 11-24-2022 End: 11-25-[address] JEREMY MAGALLANES Facility: Start: 11-23-2022 End: 11-23-2022 ambulatory Jeremy Magallanes Other [facility] Other Start: 11-23-2022 Office outpatient vi sit 15 minutes Jeremy Magallanes [facility] Start: 11-05-2022 End: 11-05-2022 ambulatory Jeremy Magallanes Other [facility] Other Start: 11-05-2022 Telephone encounter Jeremy Magallanes [facility] Start: 10-03-2022 End: 10-03-2022 ambulatory Jeremy Magallanes Other [facility] [employer] Other Start: 10-03-2022 Telephone encounter Jeremy Magallanes [facility] Start: 09-04-2022 End: 09-04-2022 ambulatory Jeremy Magallanes Other [facility] Other Start: 09-04-2022 Office outpatient vi sit 25 minutes Jeremy Magallanes [facility] Start: 07-26-[address] JEREMY MAGALLANES Facil ity:H1 Start: 07-19-2022 End: 07-20-[address] WILFREDO ENGLE Facility:H1 Start: 06-07-2022 End: 06-07-[address] JEREMY MAGALLANES Facility:H1 Start: 03-15-2022 ambulatory KESHA ESCOBEDO Facility:H 1 Start: 02-06-2022 End: 02-06-2022 ambulatory Kesha Olemartin Other [facility] Other Start: 02-06-2022 Office outpatient vi sit 25 minutes Kesha Olexa [facility] Start: 02-02-2022 End: 02-03-2022 ambulatory KESHA OLEMARTIN Facility:H1 Start: 12-28-2021 End: 12-28-[address] JEREMY MAGALLANES Facility:H1 Start: 12-12-2021 End: 12-13-2021 ambulatory KESAH OLEXA [facility] Other Start: 12-12-2021 Office outpatient ne w 30 minutes Kesha Olexa [facility] Start: 05-26-2021 Office outpatient vi sit 15 minutes Harriet Ginty [facility] Procedures Date Procedure Procedure Detail Performing Clinician Start: 06-03-2024 Esophagogastroduodenoscopy Priyanka vázquez [employer] Work Phone: Start: 06-03-2024 Level i surg [...] [facility] Start: 03-18-2024 Patient referral [facility] Work Phone: Start: 10-07-2023 End: 10-07-2023 Patient encounter procedure 10/07/2023 8:00 AM EST Office Visit [facility] [address] [place] [address] Barbie Tapia DO [address] [place] [address] [facility] Start: 2010 Administration of varicella zoster vaccine Zoster (Shingles) Vaccine (1 of 2) [facility] Start: 1978 Adult BMI Follow Up Plan Adult BMI Follow Up Plan [facility] Start: 1972 Depression Screening Depression Screening [facility] Start: 1960 Tobacco Counseling Tobacco Counseling [facility] CT Chest WO contrast [facility] End: 05-27-2025 Esophagogastroduodenoscopy EGD GI Routine Dysphagia, unspecified type Black stools 1 Occurrences starting 05/27/2024 until 05/27/2025 [facility] Work Phone: Comment on above: 1 Occurrences starting 05/27/2024 until 05/27/2025 Patient referral [facility] Work Phone: XR Pelvis and Hip - bilateral Views [facility] Immunizations Immunization Date Immunization Notes Care Provider Fa cility 06-02-2018 Influenza, injectabl e, Madin Kyleigh Canine Kidney, preservative free, quadrivalent Argentina Clinton PT Work Phone: [facility] 06-02-2018 influenza virus vaccine, unspecified formulation Priyanka Vaz [employer] Work Phone: [facility] 05-17-2017 influenza virus vaccine, split virus (incl. purified surface antigen) Jeremy Magallanes Other [employer] [employer] Other 05-17-2017 influenza virus vaccine, unspecified formulation [facility] 05-16-2017 influenza, injectabl e, quadrivalent, preservative free Argentina Clinton PT Work Phone: [facility] 06-28-2016 influenza, injectabl e, quadrivalent, preservative free Argentina Clinton PT Work Phone: [facility] 06-28-2016 tetanus and diphther ia toxoids, adsorbed, preservative free, for adult use (5 Lf of tetanus toxoid and 2 Lf of diphtheria toxoid) Jeremy Magallanes Other [facility] 05-25-2015 influenza, seasonal, injectable, preservative free Argentina Clinton PT Work Phone: [facility] 05-25-2015 tetanus and diphther ia toxoids, adsorbed, preservative free, for adult use (5 Lf of tetanus toxoid and 2 Lf of diphtheria toxoid) Jeremy Magallanes Other [facility] 06-15-1999 pneumococcal conjuga te vaccine, 7 valent Argentina Clinton PT Work Phone: [facility] Payers Date Payer Category Payer Medicaid [id number] 2013 Medicare [id number] 1960 Unknown [id number] 2.16.84 0.1.989365.3.579.2.593 1960 Unknown [id number] 2.16.84 0.1.782412.3.579.2.593 1960 Unknown [id number] 2.16.84 0.1.615164.3.579.2.593 1960 Unknown [id number] 2.16.84 0.1.793494.3.579.2.593 1960 Unknown [id number] 2.16.84 0.1.517815.3.579.2.593 1960 Unknown [id number] 2.16.84 0.1.246565.3.579.2.593 1960 Unknown [id number] 2.16.84 0.1.742106.3.579.2.593 1960 Unknown [id number] 2.16.84 0.1.571168.3.579.2.593 1960 Unknown [id number] 2.16.8 40.1.134237.3.579.2.727 1960 Unknown [id number] 2.16.84 0.1.884445.3.579.2.1259 1960 Unknown [id number] 2.16.84 0.1.431582.3.579.2.1259 1960 Unknown [id number] 2.16.84 0.1.791310.3.579.2.1259 1960 Unknown [id number] 2.16.84 0.1.813742.3.579.2.1259 1960 Unknown [id number] 2.16.840 .1.404725.3.579.2.1259 1960 Unknown [id number] 2.16. 840.1.960841.3.579.2.196 1960 Unknown [id number] 2.16. 840.1.593030.3.579.2.196 1960 Unknown [id number] 2.16. 840.1.495866.3.579.2.196 1960 Unknown [id number] 2.16. 840.1.622378.3.579.2.196 1960 Unknown [id number] 2.16. 840.1.226907.3.579.2.196 1960 Unknown [id number] 2.16. 840.1.115280.3.579.2.196 1960 Unknown [id number] 2.16.8 40.1.105185.3.579.2.1286 1959 Medicaid [id number] 2. 16.840.1.482327.19 1959 Medicare [id number] 2.1 6.840.1.520972.19 Self-pay Self Pay [id number] Social History Date Type Detail Facility Start: 09-29-2020 End: 09-02-2023 Sex Assigned At [facility] Tobacco smoking status No Smokin g Status Entered [facility] Start: 06-03-2019 End: 03-27-2023 Tobacco smoking status [facility] Smokes tobacco daily [facility] Work Phone: History of tobacco [...] [facility] Start: 02-06-2017 Tobacco smoking status NMIS Ex-smoker (finding) [facility] Start: 1960 Sex assigned at Not on file [facility] Frequency of Alcohol Consumption Never [facility] [email or web address] [facility] Start: 06-01-2019 Sex Male (finding) [facility] [...] risk of esophageal cancer. Thanks, Dr. Kc [facility] 06-12-2024 Telephone encounter Note Spoke with patient [...] gallbladder polyp. He saw Dr. Martinez in [place] for this. He also reports a positive [...] confusion. Past Medical History: Diagnosis Date Cancer ([facility] [place]) Chronic back pain COPD (chronic obstructive pulmonary disease) ([facility] [place]) Dental disease full dentures Diabetes mellitus ([facility] [place]) Shortness of breath Skin cancer [place] & [...] patient/family/caregiver Referring and communicating with other health care taker Dysphagia, unspecified type [R13.10] CHARLEE BIGGS [facility] General Surgery [place] This note was created with the assistance [...] Consult from Dr. Jeremy Magallanes (Internal Medicine) [facility] Referral received from [...] completed: 04/08/2024 Barium Swallow 03/21/2024 CT Chest [facility] 05-15-2024 Miscellaneous Notes Images from the original note were not included. Consult from Dr. Jeremy Magallanes (Internal Medicine) [facility] Referral received from [...] were not included. Referral was sent from [facility] for new consult with Dr Meraz Please see below and advise documented in this encounter [facility] 05-14-2024 Telephone encounter Note Images from the original note were not included. Referral was sent from [facility] for new consult with Dr Meraz Please see below and advise [facility] 10-02-2023 Telephone encounter Note No attempts to hear back; closing referral. [facility] 10-02-2023 Miscellaneous Notes No attempts to hear back; closing referral. documented in this encounter [facility] 09-13-2023 Evaluation note Encounter Date Diagnosis Assessment Notes Aug, Chronic obstructive pulmonary disease, unspecified (ICD-10 - J44.9) Finish antibiotics and prednisone as prescribed. Denies pulmonary referral at this time. Hasn't smoked since 09/08 and declines chantix or patches. Aug, Current smoker (ICD-10 - F17.200) [facility] Other 01-23-2024 Evaluation note* Encounter Date Diagnosis Assessment Notes Treatment Notes Treatment Clinical Notes Aug, Lumbar radicular pain (ICD-10 - M54.16) [facility] Other 01-19-2024 Evaluation note* Encounter Date Diagnosis Assessment Notes Treatment Notes Treatment Clinical Notes Aug, Lumbar radicular pain (ICD-10 - M54.16) [facility] Other 12-26-2023 Evaluation note* Encounter Date Diagnosis Assessment Notes Treatment Notes Treatment Clinical Notes Jul, Type 2 diabetes mellitus with hyperglycemia, without long-term current use of insulin (ICD-10 - E11.65) [facility] Other 12-26-2023 Evaluation note* Encounter Date Diagnosis [...] T3s after shoulder pain has improved post-operatively. [facility] Other 12-04-2023 Evaluation note* Encounter Date Diagnosis Assessment Notes Treatment Notes Treatment Clinical Notes Jul, Type 2 diabetes mellitus with hyperglycemia, without long-term current use of insulin (ICD-10 - E11.65) [facility] Other 12-01-2023 Evaluation note* Encounter Date Diagnosis Assessment Notes Treatment Notes Treatment Clinical Notes Jul, Type 2 diabetes mellitus with hyperglycemia, without long-term current use of insulin (ICD-10 - E11.65) [facility] Other 11-30-2023 Evaluation note* Encounter Date Diagnosis Assessment Notes Treatment Notes Treatment Clinical Notes Jun, Labral tear of shoulder, right, subsequent encounter (ICD-10 - S43.431D) [facility] Other 11-14-2023 Evaluation note* Encounter Date Diagnosis [...] pain (ICD-10 - R07.9) r/o cardiac cause [facility] Other 11-07-2023 Evaluation note* Encounter Date Diagnosis [...] to decrease dose and possibly discontinue medication. [facility] Other 11-02-2023 Evaluation note* Encounter Date Diagnosis Assessment Notes Treatment Notes Treatment Clinical Notes Jun, Acute pain of right shoulder (ICD-10 - M25.511) [facility] Other 10-30-2023 Evaluation note* Encounter Date Diagnosis Assessment Notes Treatment Notes Treatment Clinical Notes May, Acute pain of right shoulder (ICD-10 - M25.511) [facility] Other 10-23-2023 Evaluation note* Encounter Date Diagnosis Assessment Notes Treatment Notes Treatment Clinical Notes May, Acute pain of right shoulder (ICD-10 - M25.511) [facility] Other 10-16-2023 Evaluation note* Encounter Date Diagnosis Assessment Notes Treatment Notes Treatment Clinical Notes May, Acute pain of right shoulder (ICD-10 - M25.511) [facility] Other 10-10-2023 Evaluation note* Encounter Date Diagnosis Assessment Notes Treatment Notes Treatment Clinical Notes May, Acute pain of right shoulder (ICD-10 - M25.511) MRI and surgery planning pending. Pt understands this is a controlled substance and to call in 1 week w update on treatment plan. May, Bronchitis (ICD-10 - J40) Finish antibiotic, rest, hydrate Steroids for wheezing. [facility] Other 10-04-2023 Evaluation note* Encounter Date Diagnosis Assessment Notes Treatment Notes Treatment Clinical Notes May, Acute pain of right shoulder (ICD-10 - M25.511) Reviewed [place]AR[place] and discussed short term plan of increase in pain medication. He is due for a refill of the T3s presently. Stop them, replace w norco. Pt understands weekly prescription and will need to d/c after anticipated surgery. [facility] Other 09-12-2023 Evaluation note* Encounter Date Diagnosis [...] office and the ER visit on 04/26 [facility] Other 07-05-2023 Evaluation note* Encounter Date Diagnosis [...] and will need less prn pain med. [facility] Other 06-01-2023 Evaluation note* Encounter Date Diagnosis [...] left shoulder (ICD-10 - M25.512) as above. [facility] Other 04-17-2023 Evaluation note* Encounter Date Diagnosis Assessment Notes Treatment Notes Treatment Clinical Notes Nov, Bronchitis (ICD-10 - J40) [facility] Other 04-11-2023 Evaluation note* Encounter Date Diagnosis Assessment Notes Treatment Notes Treatment Clinical Notes Nov, Disc degeneration, lumbar (ICD-10 - M51.36) Nov, Lumbar radicular pain (ICD-10 - M54.16) [facility] Other 04-07-2023 Evaluation note* Encounter Date Diagnosis [...] quit smoking. Pt verbalizes understanding and agreement. [facility] Other 02-15-2023 Evaluation note* Encounter Date Diagnosis Assessment Notes Treatment Notes Treatment Clinical Notes Sep, Lumbar radicular pain (ICD-10 - M54.16) [facility] Other 01-17-2023 Evaluation note* Encounter Date Diagnosis [...] is outlined on the test result page. [facility] Other 10-20-2022 NoteIndication: Calculus in kidney. Comparison: [...] Electronically authenticated by: JOHN PINTO Date: 2022-06-07 20:07[facility]06-21-2022 Evaluation note* Encounter Date Diagnosis [...] of repair, infection and wound healing delays. [facility] Other 04-26-2022 NotePROCEDURE: XR SHOULDER LT 2V or > COMPARISON: None. HISTORY: Pain of left shoulder joint FINDINGS: BONES:No acute fracture or dislocation. 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 No visible soft tissue swelling. EFFUSION:None visible. OTHER: Negative. IMPRESSION: Mild osteoarthritis Electronically authenticated by: BARBIE MEMBRENO Date: 2021-12-12 15:25[id number]* Encounter Date Diagnosis Assessment Notes [...] pain of left shoulder (ICD-10 - M25.512) [facility] Other 10-08-2021 Evaluation note* Encounter Date Diagnosis [...] as needed for cough. Advised patient that [place] contains antihistamine and cough suppressant and to be cautious using other OTC cold medications. Patient to follow up with PCP if symptoms do not improve. Immediate eval if SOB, difficulty breathing, chest pain, dizziness, or other concerning symptoms. Patient verbalizes understanding and is agreeable to treatment plan [facility] Other Evaluation + Plan note No data available for this section [facility] noteNo InformationNortChan [facility] [place] Other Evaluation note* Diagnosis Onset Date Resolution Status Arthralgia acute Lumbar pain acute Type II diabetes mellitus ac [facility] Work Phone: Evaluation note* Diagnosis Onset Date Resolution Status Arthralgia acute Lumbar pain acute Type II diabetes mellitus ac racine Bilateral hip pain acute [facility] Work Phone: Evaluation note* Diagnosis Onset Date Resolution Status Arthralgia acute Lumbar pain acute Type II diabetes mellitus ac racine Bilateral hip pain acute Lumbar pain acute [facility] Work Phone: Evaluation note* Diagnosis Onset Date Resolution Status Submandibular abscess acute Chronic obstructive pulmonary disease, unspecified acute Esophageal abnormality acute Mass of left submandibular region [facility] Work Phone: Evaluation note* Diagnosis Dysphagia, unspecified type- Primary Black stools Nonspecific abnormal finding in stool contents Gastroesophageal reflux disease, unspecified whether esophagitis present Abnormal esophagram documented in this encounter [facility] Diagnosis Onset Date Resolution Status Chronic obstructive pulmonary disease, unspecified acute Esophageal abnormality acute Mass of left submandibular region [facility] Work Phone: Evaluation note* Diagnosis Dysphagia, unspecified type Black stools Nonspecific abnormal finding in stool contents documented [facility] this encounter [facility] Diagnosis Onset Date Resolution Status 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 Surgical History carpal tunnel release 2016 Surgical History tonsillectomy Hospitalization History 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 Hospitalization History pneumonia [facility] Other Hospital Discharge instructions No data available for this section [facility] instructionsAmbulatory Orders* Referral to ENT Time Frame: 03/18/24, Location: None [facility] Work Phone: InstructionsNot on filedocumented in this encounter [facility] System[facility]ructionsNot on filedocumented in this encounter [facility] SystemInstructionsNot on filedocumented in this encounter [facility] SystemProgress note No data available for this section [facility] Summary Purpose Family History Relationship Condition [...] 1 Epigastric abdominal pain (R10.13) Referral Organization [facility] omar Referring Provider First Name Jeremy Referring Provider Last Name Sona Referring Provider Specialty [facility] [employer] Referred Organization [facility] Referred Provider Sai Martinez Referred Address ,[place], [place],[address] Referred Provider Specialty Surgery Referral Priority Routine General Notes Es Camilo 11:38:02 AM >received today, attachments made, notes locked, referral faxed Reason 01/28/23 Access Or tho - B shoulder pain L>R - hopes for injections. Diagnosis 1 Pain in right should er (M25.511) Referral Organization [facility] Referring Provider First Name Jeremy Referring Provider Last Name Sona Referring Provider [facility] [employer] Referred Organization [facility] Referred Provider Barbie Tapia Referred Address ,[place], [place],[address] Referred Provider Specialty Orthopaedic Surgery Referral Priority [...] in right should er (M25.511) Referral Organization [facility] Referring Provider First Name Jeremy Referring Provider Last Name Sona Referring Provider Specialty [facility] Referred Organization [facility] Referred Provider Barbie Tapia Referred Address ,[place], [place] Referred Provider Specialty Orthopaedic Surgery Referral Priority [...] call back reinier. 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 Relationship Specialty [place] [address] [place] [phone] Referring Family Medicine 05/12/24 Entry Level Programmer Relationship Specialty Start Date End Date Jeremy Magallanes MD [address] [place] [address] [phone] PCP - General Family Medicine 06/03/19 Entry Level Programmer Relationship Specialty Start Date End Date Jeremy Magallanes MD [address] [place] [id number] PCP - General Family Medicine 06/03/19 Entry Level Programmer Relationship Specialty Start Date End Date Jeremy Magallanes MD [address] [place] [address] PCP - General Family Medicine 06/03/19 Entry Level Programmer Relationship Specialty Start Date End Date Jeremy Magallanes MD [address] [place] [address] PCP - General Family Medicine 06/03/19 Team [...] or prosecute any alcohol or drug abuse patient.[facility] FOR RECORDS PERTAINING TO PATIENTS WHO [...] BE BASED ON THE PRIMARY CLINICAL RECORDS. [facility] HospitalCamelot Information Systems [facility]. provides no warranty or guarantee of the accuracy or completeness of information in this document.
== END 2024-07-22 08:24 | disposition home or self-care (01) ==
LOC: PM 08:23
PROVIDERS: PCP Family Medicine; Visit Provider Nurse Practitioner
DX: M47.816 Spondylosis without myelopathy or radiculopathy, lumbar region (principal); M48.062 Spinal stenosis, lumbar region with neurogenic claudication; M96.1 Postlaminectomy syndrome, not elsewhere classified; M46.1 Sacroiliitis, not elsewhere classified; Z79.891 Long term (current) use of opiate analgesic
CPT/HCPCS: G0463

== ENCOUNTER 2024-08-17 13:54 | Outpatient (OUT) | payer MEDICARE, SELFPAY ==
--- NOTE | 2024-08-17 16:57 | PM.CN ---
Consult Note: HPI Data of Consult Patient: known to practice within the last 3 years Consult date: 08/17/24 Requesting Physician: Zacarias Pike MD Primary Care Provider: Hannah Gallo MD Consult Narrative Reason for consult: low back pain Narrative: 64yom who presents for assessment. continues to have low back pain. has had relief previously with trigger point injections. would like to repeat. has history of lumbar laminectomies. cc:: CC: Zacarias Pike MD Review of Systems ROS Status of ROS 10 or more systems reviewed and unremarkable except as noted in history and below [facility] Medical History Melanoma ?C43.9 - Malignant melanoma of skin, unspecified (ICD-10) Tobacco user ?Z72.0 - Tobacco use (ICD-10) Type 2 diabetes mellitus with hyperglycemia ?E11.65 - Type 2 diabetes mellitus with hyperglycemia (ICD-10) Acute exacerbation of chronic obstructive pulmonary disease (COPD) ?J44.1 - Chronic obstructive pulmonary disease with (acute) exacerbation (ICD-10) Lumbar degenerative disc disease ?M51.36 - Other intervertebral disc degeneration, lumbar region (ICD-10) Influenza ?J11.1 - Influenza due to unidentified influenza virus with other respiratory manifestations (ICD-10) Acute bronchospasm ?J98.01 - Acute bronchospasm (ICD-10) Postoperative pain, acute, shoulder ?G89.18 - Other acute postprocedural pain (ICD-10) ?M25.519 - Pain in unspecified shoulder (ICD-10) Fever ?R50.9 - Fever, unspecified (ICD-10) Acute pain of right shoulder ?M25.511 - Pain in right shoulder (ICD-10) Rotator cuff arthropathy of right shoulder ?M12.811 - Other specific arthropathies, not elsewhere classified, right shoulder (ICD-10) Diabetes ?E11.9 - Type 2 diabetes mellitus without complications (ICD-10) COPD (chronic obstructive pulmonary disease) ?J44.9 - Chronic obstructive pulmonary disease, unspecified (ICD-10) Surgical History H/O colonoscopy ?Z98.890 - Other specified postprocedural states (ICD-10) History of carpal tunnel release ?Z98.890 - Other specified postprocedural states (ICD-10) H/O lumbosacral spine surgery ?Z98.890 - Other specified postprocedural states (ICD-10) S/P right rotator cuff repair ?Z98.890 - Other specified postprocedural states (ICD-10) Family History Other Family history of COPD (chronic obstructive pulmonary disease) Family history of cancer Family history of hypertension Social History Within the past year, how often did you have a drink containing alcohol: never Score interpretation: A score less than 4 is consistent with normal alcohol consumption. Smoking status: Current every day smoker Non-prescribed substance use: denies use Previous occupational history: retired Highest level of school completed/degree received: GED or equivalent Are you now , , , , never or living with a partner: In a typical week, how many times do you talk on the telephone with family, friends, or neighbors: 3 or more times per week How often do you get together with friends or relatives: 3 or more times per week How often do you attend tenriism or buddhism services: never Do you belong to any clubs or organizations such as tenriism groups unions, fraternal or athletic groups, or school groups: no Total score: 2 Score interpretation: A score of greater than or equal to 2 indicates the lowest level of social isolation. Little interest or pleasure in doing things: not at all Feeling down, depressed, or hopeless: not at all Feel stressed/tense/nervous/anxious/difficulty sleeping: not at all Do you think of yourself as: straight/heterosexual Gender Identity: male Meds Home Medications and Allergies Home Medications ?Medication ?Instructions ?Recorded ?Confirmed ?Type glipizide 5 mg-metformin 500 mg 1 tab PO BID 08/23/23 07/17/24 History tablet lancets (Accu-Chek Fastclix Lancet 09/08/23 09/08/23 History Drum) acetaminophen 300 mg-codeine 30 mg See Rx Instructions .Route 05/07/24 07/17/24 Rx tablet .COMPLEX PRN pain #180 tabs albuterol sulfate 90 mcg/actuation 2 puff inhalation Q6H PRN 06/01/24 07/17/24 History aerosol inhaler shortness of breath or wheezing doxycycline hyclate 100 mg capsule 100 mg PO BID 7 days #14 caps 07/18/24 Rx prednisone 20 mg tablet 40 mg (2 x 20 mg) PO DAILY 5 days 07/18/24 Rx #10 tabs Allergies Allergy/AdvReac Type Severity Reaction Status Date / Time fentanyl Allergy Intermediate Hives Verified 06/03/24 09:19 ofloxacin Allergy Intermediate HIVES Verified 05/18/24 07:19 olodaterol (From Stiolto Allergy Intermediate SHORTNESS Verified 05/18/24 07:19 Respimat) OF BREATH tiotropium (From Stiolto Allergy Intermediate SHORTNESS Verified 05/18/24 07:19 Respimat) OF BREATH zafirlukast Allergy Intermediate Hives Verified 05/18/24 07:19 Iodinated Contrast Media Allergy Unknown Unknown Verified 07/17/24 22:59 ibuprofen (From Motrin) AdvReac Mild Hives Verified 07/17/24 22:59 Exam Narrative Exam Narrative: Psych-alert and oriented x 3. Attentive and appropriate, constitutionally normal, displays normal mood and affect per situation.? There are no obvious deficits in memory, reasoning, or intellect.? Skin-no obvious rashes, bruising, erythema noted to the patient's area of pain. Extremities- extremities are warm with minimal edema and palpable pulses. Lumbar- tenderness to palpation noted in the lumbar spine and paraspinal musculature.?Multiple trigger points expressed on palpation. Pain is elicited with extension, and lateral rotation of the lumbar spine. Range of motion is slightly diminished with these motions due to pain. Coordination remains intact.? Gait remains non-antalgic. Assessment and Plan Assessment and Plan (1) Lumbar stenosis with neurogenic claudication: (2) Myalgia, other site: Plan 64yom who presents for assessment. failed conservative measures, as noted. given previous relief and current symptoms, prudent to repeat paralumbar trigger point injections. he is in agreement. meds reviewed, no changes. provided with info about spinal cord stim, given his previous surgical history. follow up in 3 months. Procedure: Bilateral paralumbar trigger point injection Medications: Bupivacaine 0.25% 8cc, kenalog 80mg I explained the details of the procedure to the patient including the risks, benefits, and alternatives.? We had an informed discussion.? The patient verbalized understanding and signed the consent form.? All questions were answered appropriately.? A time-out was performed.? After obtaining a comfortable seated position, the skin overlying the paralumbar region was prepped with alcohol 3 times. The needle was inserted in a sterile manner through the skin towards the palpated trigger point areas. The contents of the syringe were gently injected without any resistance 1cc at a time into the appropriate trigger point.? The needle was removed and pressure was applied at the injection site to decrease the incidence of ecchymosis and hematoma formation.? A sterile bandage was applied. The patient tolerated the procedure well.
== END 2024-08-17 13:55 | disposition home or self-care (01) ==
LOC: PM 13:55
PROVIDERS: PCP Family Medicine; Visit Provider Anesthesiology
DX: M48.062 Spinal stenosis, lumbar region with neurogenic claudication (principal); M79.18 Myalgia, other site
CPT/HCPCS: 20553; J0665; J3301

== ENCOUNTER 2024-08-26 07:24 | Outpatient (OUT) | payer MEDICARE, SELFPAY ==
--- NOTE | 2024-08-26 07:38 | CT_ITS ---
[address] [address] Patient Name: ERIC CRAIG MRN: [id number] date: 1960 Sex: M Assigned Patient Location: LAB Current Patient Location: LAB Accession/Order Number: [id number] Exam Date: 08/26/2024 07:55 Report Date: 08/26/2024 13:12 At the request of: JEREMY MAGALLANES Procedure: CT soft tissue neck w con CT NECK WITH CONTRAST, 08/26/2024. HISTORY: Left submandibular area mass. COMPARISON: CT neck with contrast, 02/27/2024. TECHNIQUE: Postcontrast axial CT images obtained through the neck. Reconstructions obtained in the sagittal and coronal planes. Dose reduction techniques were achieved by using automated exposure control and/or adjustment of mA and/or kV according to patient size and/or use of iterative reconstruction technique. FINDINGS: Visualized posterior fossa contents are unremarkable. The paranasal sinuses are clear. Middle ear cavities and mastoid air cells are clear. Skull base intact. The machine filler shredder spaces are normal. The parotid gland on the right is normal. There is atrophy of the left parotid gland which is largely replaced with fat. This finding is stable. Both submandibular glands are normal in size and symmetric. No calcified sialolith. There is no inflammation in the submandibular space on the left. No enlarged lymph nodes or masses in this area. The tongue and floor of the mouth are normal. Nasopharynx, oropharynx, and retropharyngeal space normal. Epiglottis normal. Vocal cords are symmetric. Thyroid gland normal. Visualized portions of the trachea and esophagus are normal. No carotid artery stenosis. Internal jugular veins are patent. No lymphadenopathy. No masses. No suspicious osseous lesions. CT/CT soft tissue neck w con IMPRESSION: 1. Stable CT of the neck. 2. No neck mass. No lymphadenopathy. 3. Submandibular glands are normal in size and symmetric. No enlarged lymph nodes or masses in the left submandibular region. No inflammation. Electronically authenticated by: CHERYL WELDON Date: 08/26/2024 13:12
[2024-08-26 07:44] LABS: Estimated GFR (African America >60 (>=60 mL/min/1.73m^2); Estimated GFR (Non-African Ame >60 (>=60 mL/min/1.73m^2)
== END 2024-08-26 07:25 | disposition home or self-care (01) ==
LOC: LAB 07:24
PROVIDERS: PCP Family Medicine; Visit Provider Family Medicine
DX: R22.0 Localized swelling, mass and lump, head (principal)
CPT/HCPCS: 36415; 70491; 82565; Q9967

== ENCOUNTER 2024-10-11 19:22 | Emergency (ER) | payer MEDICARE, SELFPAY ==
[2024-10-11 19:27] VITALS: BP 164/89; PULSE 75; TEMP 36.7; O2SAT 98; BMI 30.7
--- OUTSIDE RECORDS SUMMARY | 2024-10-11 19:29 | XMS_ITS | CCD ---
Author Organization [facility] Care Team Providers Care Major Sales Associate Name Role Phone Ronnie Kesha Unavailable Chepe Harriet Unavailable Jeremy Magallanes Unavailable SONA, DR JEREMY Jovel Admitting Unavailable MAGALLANES, DR JEREMY Jovel Attending Unavailable MAGALLANES, DR JEREMY Jovel Primary Care Unavailable AMGALLANES, DR JEREMY Jovel Consulting Unavailable TAVERASRUBI Consulting Unavailable OLEXA, KESHA Admitting Unavailable OLEXA, KESHA Attending Unavailable MAGALLANES, DR JEREMY Jovel Primary Care Unavailable SANTA CRUZ, DR BARBIE Goldberg Consulting Unavailable OLEXA, KESHA [...] DR JEREMY Jovel Admitting Unavailable MAGALLANES, DR JREEMY Jovel Attending Unavailable MAGALLANES, DR JEREMY Jovel Primary Care Unavailable OLEXA, KESHA Admitting Unavailable OLEXA, KESHA Attending Unavailable MAGALLANES, DR JEREMY Jovel Primary Care Unavailable MAGALLANES, DR JEREMY Jovel Primary Care Unavailable HAY ., DR DESIR Admitting Unavailable VANCE ., DR DESIR Attending Unavailable HAY ., DR DESIR Consulting Unavailable SONA, DR JEREMY Jovel Primary Care Unavailable BREE, DR CARLOS Drummond Admitting Unavailable BREE, DR CARLOS Drummond Attending Unavailable BREE, DR CARLOS Drummond Consulting Unavailable MILLIE, JOHN Consulting Unavailable JEREMY MAGALLANES Primary Care Physician Edin, Barbie Tellez Referring Unavailable Pocdoorn, Barbie Tellez Attending Unavailable Pocdoron, Barbie Tellez Admitting Unavailable Jeremy Magallanes MD Primary Care Provider POCOS, BARBIE Tellez Attending Unavailable POCOS, BARBIE Tellez Referring Unavailable POCDORON, JIN Attending Unavailable MALATHI SANCHEZ Attending Unavailable JEREMY MAGALLANES Referring Unavailable BARBIE TAPIA Attending Unavailable Jeremy Magallanes MD Unavailable PRIYANKA VAZ Attending Unavailable JERMEY MAGALLANES Referring Unavailable JEREMY MAGALLANES Primary Care Unavailable MD Jeremy Magallanes Primary Care Provider DO Bill Henry Attending Provider [phone] Jeremy Magallanes Primary Care Unavailable Bill Henry Attending Unavailable Bill Henry Admitting Unavailable Giedraitis , Andrius Vytautas Attending Unavailable Giedraitis , Andrius Vytautas Attending Unavailable Giedraitis , Andrius Vytautas Attending Unavailable Giedraitis , Andrius Vytautas Attending Unavailable Giedraitis , Andrius Vytautas Attending Unavailable Giedraitis , Andrius Vytautas Attending Unavailable Giedraitis , Andrius Vytautas Attending Unavailable Jeremy Magallanes MD Primary Care Provider [phone] Allergies Allergy Classification Reported Allergen(s) Allergy Type Date of Onset Reaction(s) Facility (20 sources) Ibuprofen Drug Allergy [facility] [employer] Other (20 sources) olodaterol / tiotropium Drug Allergy shortness of breath [facility] [employer] Other (20 sources) CT Scan dye Propensity to adverse reactions [facility] [employer] Other (9 sources) Ibuprofen; Translations: [IBUPROFEN] Drug Allergy 08-19-18 80 [facility] (2 sources) Iodine (And Iodine Containting Drugs) Drug allergy (disorder) 09-07-19 16 [facility] (1 source) NSAIDs Drug allergy (disorder) [facility] (20 sources) fentaNYL Drug Allergy 12-05-19 24 Unknown, [facility] (12 sources) Ibuprofen Drug Allergy 01-15-20 15 Rash, [facility] (20 sources) Ofloxacin Drug Allergy 12-05-19 24 Unknown, [facility] (3 sources) zafirlukast Drug Allergy 01-15-20 15 Unknown [facility] Other (20 sources) Zafirlukast *ANTIASTHMATIC AND BRONCHODILATOR AGEN Propensity to adverse reactions Unknown [facility] Other (20 sources) Ibuprofen & Diet Manage Prod *ANALGESICS - ANTI-IN Propensity to adverse reactions Unknown [facility] Other (3 sources) Allergies Reconciled Propensity to adverse reactions Unknown [facility] Other (20 sources) Iodinated contrast media (substance) Drug allergy 06-03-20 19 Rash, Hives [facility] Other (3 sources) patient allergy list reviewed by nurse or physicia Propensity to adverse reactions 10-05-19 16 Comment:Done [facility] Other (10 sources) olodaterol Drug Allergy 12-05-19 shortness of breath [facility] (10 sources) tiotropium Drug Allergy 12-05-19 24 shortness of breath [facility] (7 sources) Iodinated Contrast Media; Translations: [IODINATED CONTRAST MEDIA] Allergy to substance 06-03-20 19 [facility] (6 sources) Ibuprofen & Diet Manage Prod * Allergy to substance 12-04-19 [facility] (6 sources) Zafirlukast *ANTIASTHMATIC AND Allergy to substance 12-04-19 [facility] (3 sources) DULoxetine Drug Allergy 04-07-20 GI intolerance [facility] Medications Current Medications Medication Drug Class(es) Dates Sig (Normalized) Sig (Original) acetaminophen 300 mg / codeine phosphate 30 mg oral tablet (20 sources) Opioid Agonist Start: 12-05-2023 End: 12-06-2023 take 1 tablet by mouth every eight hours Acetaminophen-Cod eine Active 1 TAB PO Every 8 hours 90 December 06, 2023 1:56pm Start: 10-03-2023 End: 12-05-2023 take 1 tablet by mouth [...] as needed Orally every 6 hrs Active [id number] 200 actuat albuterol 0.09 mg/actuat metered dose inhaler (20 sources) beta2-Adrenergic Agonist Start: 05-01-2024 End: 05-01-2024 take 1 puff(s) by inhalation every four hours Albuterol Sulfate Active 2 PUFF INHALATION Every 4 hours 8.5 May 01, 2024 8:24am Start: 06-25-2023 End: 04-07-2024 take 2 puff(s) by inhalation every four hours albuterol HFA 90 mcg/act inhaler Inhale 2 puffs every 4 (four) hours if needed 06/25/2023 04/07/2024 Discontinued (Therapy completed) Start: 06-25-2023 take 2 puff(s) by in [...] Start: 07-19-2023 take 2 tablets by mo [facility] in the morning glipiZIDE-metFORMIN (Metaglip) 5-500 MG tablet Take 2 tablets by mouth in the morning and 2 tablets before bedtime. 07/19/2023 Active take 1 tablet by [facility] twice daily glipiZIDE-metFORMIN HCl 5-500 MG 1 [...] Active Start: 11-23-2022 take 2 tablets by [facility] every twenty-four hours predniSONE 20 MG 2 tablets Orally Once a day for 5 days Nov, Active predniSONE 20 MG TAKE 3 TABLETS BY MOUTH DAILY X 3 DAYS, 2 TABLETS DAILY X 3 DAYS, 1 TABLET DAILY X 3 DAYS for 9 Active tiZANidine 4 mg oral tablet (5 sources) Central alpha-2 Adrenergic Agonist Start: 10-14-2023 take 1 tablet by mouth every six hours as needed tiZANidine (Zanaflex) 4 MG tablet Take 4 mg by mouth every 6 (six) hours if needed for muscle spasms 10/14/2023 Active Start: 04-23-2023 take 1 tablet by desirae th at bedtime as needed tiZANidine (Zanaflex) 4 [...] days May, Active Start: 2023 HYDROcodone-ac etaminophen ([place]) 10-325 MG tablet Start: 2023 take 1 tablet by desirae th every six hours HYDROcodone-Acetaminophen 10-325 MG 1 tablet as needed Orally every 6 hrs for 7 days May, Active atorvastatin 20 mg oral tablet (20 sources) HMG-CoA Reductase Inhibitor Start: 10-23-2023 End: 12-17-2023 take 1 tablet by mouth once daily Atorvastatin Discontinued 0 .ROUTE .COMPLEX October 23, 2023 3:27pm December 17, 2023 [...] 30 mg oral tablet (5 sources) Uncompetitive Z-semgkh-C-aspartate Receptor Antagonist, Sigma-1 Agonist Start: 05-26-2021 take 1 tablet by mouth every eight hours [place] DMT 30-30 MG 1 tablet Orally every 8 hours for 7 days May, Not-Taking DULoxetine 60 mg delayed release oral capsule (19 sources) Serotonin and Norepinephrine Reuptake Inhibitor Start: 02-19-2024 End: 03-18-2024 take 1 capsule by mouth once daily Duloxetine Discontinued 0 .ROUTE .COMPLEX February 19, 2024 8:39am March 18, 2024 9:00am TAKE 1 CAPSULE BY MOUTH EVERY DAY FOR 90 DAYS Start: 11-12-2023 End: 04-07-2024 take 60 mg by mouth once daily Duloxetine Discontinued 60 MG PO Daily February 19, 2024 12:00am February 19, 2024 8:39am Start: 02-20-2023 take 1 capsule by mo [facility] every twenty-four hours Cymbalta 60 MG [...] Onset: 9 Chronic Diabetes mellitus without complication (17 sources) Type 2 diabetes mellitus without complications; [...] [Gastro-esophageal reflux disease without esophagitis] Onset: 4 03-26-2024 Chronic Esophageal disorders (5 sources) Disorder of esophagus; Translations: [Disease of esophagus, unspecified] 03-18-2024 Episodic Genitourinary symptoms and ill-defined conditions (3 [...] [Other fecal abnormalities] Episodic Other gastrointestinal disorders (1 source) Dysphagia, unspecified; Translations: [Dysphagia, unspecified] Onset: 4 Episodic Other liver diseases (20 sources) High enzyme level in serum; Translations: [Abnormal levels of other serum enzymes] Episodic Other liver diseases (5 sources) Liver mass; Translations: [Hepatomegaly, not elsewhere classified] Onset: 4 03-26-2024 Episodic Other lower respiratory disease (20 [...] Onset: 2 Chronic Other non-traumatic joint disorders (5 sources) Rotator cuff arthropathy of left shoulder; Translations: [Other specific arthropathies, not elsewhere classified, left shoulder] Onset: 3 01-28-2023 Chronic Other non-traumatic joint disorders (8 sources) Pain in left shoulder; Translations: [PAIN IN LEFT SHOULDER] Onset: 2 Resolved: 2 Episodic Other non-traumatic joint disorders (9 sources) Pain in right shoulder Episodic Other non-traumatic joint disorders (10 sources) Joint pain; Translations: [Pain in unspecified joint] Onset: 4 12-05-2023 Episodic Other non-traumatic joint disorders (3 [...] unspecified] Onset: 8 Chronic Other skin disorders (7 sources) Mass of submandibular region; Translations: [Localized swelling, mass and lump, head] Onset: 4 03-18-2024 Episodic Other skin disorders (2 sources) [...] disc disorders; other back problems (20 sources) Radiculopathy, lumbar region; Translations: [Dorsalgia, unspecified] [...] Hyperglycemia; Translations: [Hyperglycemia, unspecified] Onset: 01-08-2017 Episodic Gastrointestinal hemorrhage (20 sources) Rectal hemorrhage; Translations: [Hemorrhage of anus and rectum] Onset: 06-18-2016 05-27-2024 Episodic Lymphadenitis (3 sources) Acute lymphadenitis; Translations: [Acute lymphadenitis, unspecified] Onset: 08-29-2017 Episodic Nonmalignant breast conditions (3 sources) Pain of breast; Translations: [Mastodynia] Onset: 10-05-2015 Episodic Other aftercare (1 source) Other termite treater (current) drug therapy; Translations: [OTH FDC CURRENT [...] Resolved: 12-12-2021 Episodic Other connective tissue disease (5 sources) Rotator cuff impingement syndrome; Translations: [Impingement syndrome of right shoulder] Onset: 01-28-2023 01-28-2023 Episodic Other connective tissue disease (5 sources) Partial thickness rotator cuff tear; Translations: [Incomplete rotator cuff tear or rupture of left shoulder, not specified as traumatic] Onset: 03-25-2023 03-25-2023 Episodic Other diseases of kidney and ureters (3 sources) Cyst of kidney; Translations: [Cyst of kidney, acquired] Onset: 04-07-2024 04-07-2024 Episodic Other ear and sense organ disorders (3 sources) Impacted cerumen; Translations: [Impacted cerumen] Onset: 03-13-2018 Episodic Other gastrointestinal disorders (20 sources) Dysphagia; Translations: [Dysphagia, unspecified] 05-27-2024 Episodic Other gastrointestinal disorders (5 sources) Stool DNA-based colorectal cancer screening positive; Translations: [Other fecal abnormalities] Onset: 03-27-2023 03-27-2023 Episodic Other gastrointestinal disorders (7 sources) Esophageal dysphagia; Translations: [Other dysphagia] Onset: 03-27-2023 03-27-2023 Episodic Other screening for suspected conditions (not mental disorders or infectious disease) (1 source) Barium swallow abnormal; Translations: [Abnormal findings on diagnostic imaging of other parts of digestive tract] 05-27-2024 Episodic Other skin disorders (5 sources) Mass of neck; Translations: [Localized swelling, mass and lump, neck] Onset: 04-07-2024 04-07-2024 Episodic Pneumonia (except that caused by tuberculosis or sexually transmitted disease) (3 sources) Pneumonia; Translations: [Pneumonia, unspecified organism] Onset: 07-28-2015 Episodic Syncope (3 sources) Syncope and collapse; Translations: [Syncope and collapse] Onset: 09-21-2016 Episodic Results Test Name Value Interpretation Reference Range Facility [facility] 06-03-2024 [facility] No Panel InformationOrdered By: Rosalia Shea on 06-03-2024 [facility] No Panel InformationOrdered By: Bill Henry on 06-03-2024 Miscellaneous Pathology Test See comment [facility] Comment on above: See report. Scanned copy available in EMR. No Panel Informationon 06-03 Helicobacter pylori Urease Test Negative [facility] Pathology Request for Lab Co rpon 06-03-2024 Pathology Request for Lab Raymond Normal [facility] Comment on above: Order Comment: PATHO LOGY GI SPECIMEN Result Comment: See report. Scanned copy available in EMR. PERFORMED BY: [place] [address] PATHOLOGIST FAMILY LIVING EDUCATOR JON PONCE M.D. Performed By: #### P ATH TO [facility] #### [address] 05-14-2024 CNPN Telephone ([id number]) NICHOLAS CRAIG ([id number]) 1960 M Date Time Provider Department 05/14/24 AMEYA MERAZ [id number] During your visit today, we recorded the following information about you: Keily Martines 05/14/2024 1:11 PM Signed Referral was sent from [facility] for new consult with Dr Meraz Please see below and advise Vivian Morley 05/15/2024 11:54 AM Addendum Consult from Dr. Jeremy Magallanes (Internal Medicine) [facility] Referral received from [...] Reviewed Reason for Visit: New Patient [172] Business Systems Advisor - Other [[id number]] Problem List As Of Date: 05/14/2024 (None) Encounter Status:Closed by VIVIAN MORLEY on 05/21/24 Normal [facility] Basophils Auto (Bld) [#/Vol] on 02-27-2024 Basophils (Bld) [#/Vol] 0.1 10 3/uL 0.0-0.1 [facility] Basophils/100 WBC Auto (Bld) on 02-27-2024 Basophils/100 WBC (Bld) 0.5 % 0.2-2.0 [facility] Eosinophils/100 WBC Auto (Bl d)on 02-27-2024 Eosinophils/100 WBC (Bld) 2.5 % 0.9-7.0 [facility] Erythrocyte distribution wid th Auto (RBC) [Ratio]on 02-27-2024 Erythrocyte distribution width (RBC) [Ratio] 13.5 % 11.0-15.0 [facility] Estimated glomerular filtrat ion rate (GFR) non- Americanon 02-27-2024 GFR/1.73 sq M.predicted among non-blacks MDRD (S/P/Bld) [Vol rate/Area] mL/min/{1.73_m2} >=60 [facility] Hematocrit Auto (Bld) [Volum e fraction]on 02-27-2024 Hematocrit (Bld) [Volume fraction] 47.1 % 42.0-54.0 [facility] Hemoglobin [Mass/volume] in Bloodon 02-27-2024 Hemoglobin (Bld) [Mass/Vol] 15.5 g/dL 14.0-18.0 [facility] Laboratory - Chemistry and C hemistry - challengeon 02-27-2024 Calcium [Mass/Vol] 8.9 mg/dL 8.5-10.1 [facility] Chloride [Moles/Vol] 98 mmol/L 98-107 [facility] CO2 [Moles/Vol] 28.1 mmol/L 21.0-32.0 [facility] Creatinine [Mass/Vol] 0.86 mg/dL 0.70-1.30 [facility] GFR/1.73 sq M.predicted MDRD (S/P/Bld) [Vol rate/Area] mL/min/{1.73_m2} >=60 [facility] Glucose [Mass/Vol] 237 mg/dL High 74-106 [facility] Lactate [Moles/Vol] 1.3 mmol/L 0.4-2.0 [facility] Potassium [Moles/Vol] 4.4 mmol/L 3.5-5.1 [facility] Sodium [Moles/Vol] 130 mmol/L Low 136-145 [facility] Urea nitrogen [Mass/Vol] 21.0 mg/dL High 7.0-18.0 [facility] Urea nitrogen/Creatinine [Mass ratio] 24.4 mg/mg [facility] Laboratory - Hematology and Cell countson 02-27-2024 Immature granulocytes/100 WBC (Bld) 0.3 % 0.0-0.5 [facility] Leukocytes [#/volume] correc jean claude for nucleated erythrocytes in Blood by Automated counon 02-27-2024 WBC corrected for nucl RBC Auto (Bld) [#/Vol] 9.3 10 3/uL 4.0-11.0 [facility] Lymphocytes Auto (Bld) [#/Vo l]on 02-27-2024 Lymphocytes (Bld) [#/Vol] 2.4 10 3/uL 1.2-3.8 [facility] Lymphocytes/100 WBC Auto (Bl d)on 02-27-2024 Lymphocytes/100 WBC (Bld) 25.5 % 20.5-60.0 [facility] MCH Auto (RBC) [Entitic mass ]on 02-27-2024 MCH (RBC) [Entitic mass] 29.1 pg 25.9-34.0 [facility] MCHC Auto (RBC) [Mass/Vol]on 02-27-2024 MCHC (RBC) [Mass/Vol] 32.9 g/dL 29.9-35.2 [facility] MCV Auto (RBC) [Entitic vol] on 02-27-2024 MCV (RBC) [Entitic vol] 88.5 fL 80.0-94.0 [facility] Monocytes Auto (Bld) [#/Vol] on 02-27-2024 Monocytes (Bld) [#/Vol] 1.1 10 3/uL High 0.3-0.8 [facility] Monocytes/100 WBC Auto (Bld) on 02-27-2024 Monocytes/100 WBC (Bld) 12.0 % 1.7-12.0 [facility] Neutrophils Auto (Bld) [#/Vo l]on 02-27-2024 Neutrophils (Bld) [#/Vol] 5.5 10 3/uL 1.4-6.5 [facility] Neutrophils/100 WBC Auto (Bl d)on 02-27-2024 Neutrophils/100 WBC (Bld) 59.2 % 43.0-75.0 [facility] No Panel Informationon 02-26 Eosinophils # (Auto) 0.2 10 3/uL 0.0-0.7 [facility] Immature Granulocyte # (Auto) 0.03 10 3/uL 0.00-0.03 [facility] Platelet mean volume Auto (B ld) [Entitic vol]on 02-27-2024 Platelet mean volume (Bld) [Entitic vol] 8.8 fL Low 9.5-13.5 [facility] Platelets Auto (Bld) [#/Vol] on 02-27-2024 Platelets (Bld) [#/Vol] 288 10 3/uL 150-450 [facility] RBC Auto (Bld) [#/Vol]on RBC (Bld) [#/Vol] 5.32 10 6/uL 4.70-6.10 [facility] Serum or plasma anion gap de terminationon 02-27-2024 Anion gap [Moles/Vol] 8.3 mmol/L [facility] Basophils Auto (Bld) [#/Vol] on 12-05-2023 Basophils (Bld) [#/Vol] 0.1 10 3/uL 0.0-0.1 [facility] Basophils/100 WBC Auto (Bld) on 12-05-2023 Basophils/100 WBC (Bld) 0.9 % 0.2-2.0 [facility] Eosinophils/100 WBC Auto (Bl d)on 12-05-2023 Eosinophils/100 WBC (Bld) 2.7 % 0.9-7.0 [facility] Erythrocyte distribution wid th Auto (RBC) [Ratio]on 12-05-2023 Erythrocyte distribution width (RBC) [Ratio] 13.1 % 11.0-15.0 [facility] Estimated glomerular filtrat ion rate (GFR) non- Americanon 12-05-2023 GFR/1.73 sq M.predicted among non-blacks MDRD (S/P/Bld) [Vol rate/Area] mL/min/{1.73_m2} >=60 [facility] Glucose mean value [Mass/vol ume] in Blood Estimated from glycated hemoglobinon 12-05-2023 Average glucose Estimated from glycated hemoglobin (Bld) [Mass/Vol] 171 mg/dL [facility] Hematocrit Auto (Bld) [Volum e fraction]on 12-05-2023 Hematocrit (Bld) [Volume fraction] 48.9 % 42.0-54.0 [facility] Hemoglobin [Mass/volume] in Bloodon 12-05-2023 Hemoglobin (Bld) [Mass/Vol] 16.0 g/dL 14.0-18.0 [facility] Laboratory - Chemistry and C hemistry - challengeon 12-05-2023 Calcium [Mass/Vol] 9.7 mg/dL 8.5-10.1 [facility] Chloride [Moles/Vol] 102 mmol/L 98-107 [facility] CO2 [Moles/Vol] 27.6 mmol/L 21.0-32.0 [facility] Creatinine [Mass/Vol] 1.01 mg/dL 0.70-1.30 [facility] GFR/1.73 sq M.predicted MDRD (S/P/Bld) [Vol rate/Area] mL/min/{1.73_m2} >=60 [facility] Glucose [Mass/Vol] 156 mg/dL High 74-106 [facility] Potassium [Moles/Vol] 4.4 mmol/L 3.5-5.1 [facility] Sodium [Moles/Vol] 139 mmol/L 136-145 [facility] Urea nitrogen [Mass/Vol] 13.0 mg/dL 7.0-18.0 [facility] Urea nitrogen/Creatinine [Mass ratio] 12.9 mg/mg [facility] Laboratory - Hematology and Cell countson 12-05-2023 ESR (Bld) [Velocity] 17 mm/h <=20 [facility] HbA1c (Bld) [Mass fraction] 7.6 % High 4.5-6.2 [facility] Comment on above: ADA RECOMMENDED LIMI T 4.0 - 6.0ADA THERAPEUTIC TARGET < 7.0ACTION SUGGESTED> 7.0 Immature granulocytes/100 WBC (Bld) 0.4 % 0.0-0.5 [facility] Leukocytes [#/volume] correc jean claude for nucleated erythrocytes in Blood by Automated counon 12-05-2023 WBC corrected for nucl RBC Auto (Bld) [#/Vol] 7.7 10 3/uL 4.0-11.0 [facility] Lymphocytes Auto (Bld) [#/Vo l]on 12-05-2023 Lymphocytes (Bld) [#/Vol] 2.4 10 3/uL 1.2-3.8 [facility] Lymphocytes/100 WBC Auto (Bl d)on 12-05-2023 Lymphocytes/100 WBC (Bld) 31.2 % 20.5-60.0 [facility] MCH Auto (RBC) [Entitic mass ]on 12-05-2023 MCH (RBC) [Entitic mass] 28.5 pg 25.9-34.0 [facility] MCHC Auto (RBC) [Mass/Vol]on 12-05-2023 MCHC (RBC) [Mass/Vol] 32.7 g/dL 29.9-35.2 [facility] MCV Auto (RBC) [Entitic vol] on 12-05-2023 MCV (RBC) [Entitic vol] 87.0 fL 80.0-94.0 [facility] Monocytes Auto (Bld) [#/Vol] on 12-05-2023 Monocytes (Bld) [#/Vol] 0.7 10 3/uL 0.3-0.8 [facility] Monocytes/100 WBC Auto (Bld) on 12-05-2023 Monocytes/100 WBC (Bld) 9.5 % 1.7-12.0 [facility] Neutrophils Auto (Bld) [#/Vo l]on 12-05-2023 Neutrophils (Bld) [#/Vol] 4.2 10 3/uL 1.4-6.5 [facility] Neutrophils/100 WBC Auto (Bl d)on 12-05-2023 Neutrophils/100 WBC (Bld) 55.3 % 43.0-75.0 [facility] No Panel Informationon 12-04 Eosinophils # (Auto) 0.2 10 3/uL 0.0-0.7 [facility] Immature Granulocyte # (Auto) 0.03 10 3/uL 0.00-0.03 [facility] Platelet mean volume Auto (B ld) [Entitic vol]on 12-05-2023 Platelet mean volume (Bld) [Entitic vol] 8.6 fL Low 9.5-13.5 [facility] Platelets Auto (Bld) [#/Vol] on 12-05-2023 Platelets (Bld) [#/Vol] 330 10 3/uL 150-450 [facility] RBC Auto (Bld) [#/Vol]on RBC (Bld) [#/Vol] 5.62 10 6/uL 4.70-6.10 [facility] Serum or plasma anion gap de terminationon 12-05-2023 Anion gap [Moles/Vol] 13.8 mmol/L [facility] Magnesiumon 07-02-2023 Magnesium [Mass/Vol] 2.2530787 mg/dL Normal 1.8- 2.4 mg/dL [facility] Other Magnesium see note [facility] Other MRI Shoulder w/o Contrast Ri [facility] 05-31-2023 MRI Shoulder w/o Contrast Right Exam Date/Time: 05/30/2023 14:25 EDT Reason for Exam: [id number] Report IMPRESSION: Full-thickness rotator cuff tearing involving [...] TAMARA Technologist: STELLA Technical Comments None Normal [facility] Consent for Treatmenton 05-19 Consent for Treatment [id number] #1.00TIFF Normal [facility] RAD - MRI Screening Formon 1 RAD - MRI Screening Form [id number]# 1.00TIFF Normal [facility] Physician Orderon 05-09-2023 Physician Order [id number] 4#1.00CD:127 Normal [facility] XR CHEST 2 Von 11-24-2022 XR [...] by: RUBI TAVERAS Date: 2022-11-24 17:17 [address] [facility] [address] LUNG CANCER SCREENINGon 1 09-20-2021 [...] by: YEISON NAVAS Date: 2022-07-20 07:18 Normal [facility] CBC AUTO DIFFon 06-07-2022 BASO # 0.1 103/ul Normal 0.0-0.1 [facility] Comment on above: Performed By: #### C BC #### [facility] [address] [place] [address] Dr. Eran Chacon Basophils/100 WBC (Bld) 0.6 % Normal 0.2-2.0 [facility] Comment on above: Performed By: #### C BC #### [facility] [address] [place] [address] Dr. Eran Chacon EO # 0.3 103/ul Normal 0.0-0.7 [facility] Comment on above: Performed By: #### C BC #### [facility] [address] [place] [address] Dr. Eran Chacon Eosinophils/100 WBC (Bld) 3.3 % Normal 0.9-7.0 [facility] Comment on above: Performed By: #### C BC #### [facility] [address] [place] [address] Dr. Eran Chacon Erythrocyte distribution width (RBC) [Ratio] 12.9 % Normal 11.0-15.0 [facility] Comment on above: Performed By: #### C BC #### [facility] [address] [place] [address] Dr. Eran Chacon Hematocrit (Bld) [Volume fraction] 47.7 % Normal 42.0-54.0 [facility] Comment on above: Performed By: #### C BC #### [facility] [address] [place] [address] Dr. Eran Chacon Hemoglobin (Bld) [Mass/Vol] 15.9 g/dL Normal 14.0-18.0 [facility] Comment on above: Performed By: #### C BC #### [facility] [address] [place] [address] Dr. Eran Chacon IG # 0.02 10e3/ul Normal 0.00-0.03 [facility] Comment on above: Performed By: #### C BC #### [facility] [address] [place] [address] Dr. Eran Chacon IG % 0.2 % Normal 0.0-0.5 [facility] Comment on above: Performed By: #### C BC #### [facility] [address] [place] [address] Dr. Eran Chacon LYMPH # 3.4 103/ul Normal 1.2-3.8 [facility] Comment on above: Performed By: #### C BC #### [facility] [address] [place] [address] Dr. Eran Chacon Lymphocytes/100 WBC (Bld) 34.5 % Normal 20.5-60.0 [facility] Comment on above: Performed By: #### C BC #### [facility] [address] [place] [address] Dr. Eran Chacon MANUAL DIFF REQ NO Normal [facility] Comment on above: Performed By: #### C BC #### [facility] [address] [place] [address] Dr. Eran Chacon MCH (RBC) [Entitic mass] 29.6 pg Normal 25.9-34.0 [facility] Comment on above: Performed By: #### C BC #### [facility] [address] [place] [address] Dr. Eran Chacon MCHC (RBC) [Mass/Vol] 33.3 g/dL Normal 29.9-35.2 [facility] Comment on above: Performed By: #### C BC #### [facility] [address] [place] [address] Dr. Eran Chacon MCV (RBC) [Entitic vol] 88.8 fL Normal 80.0-94.0 [facility] Comment on above: Performed By: #### C BC #### [facility] [address] [place] [address] Dr. Eran Chacon MONO # 0.9 103/ul Critically high 0.3-0.8 [facility] Comment on above: Performed By: #### C BC #### [facility] [address] [place] [address] Dr. Eran Chacon Monocytes/100 WBC (Bld) 9.3 % Normal 1.7-12.0 [facility] Comment on above: Performed By: #### C BC #### [facility] [address] [place] [address] Dr. Eran Chacon NEUT # 5.2 103/ul Normal 1.4-6.5 [facility] Comment on above: Performed By: #### C BC #### [facility] [address] [place] [address] Dr. Eran Chacon Neutrophils/100 WBC (Bld) 52.1 % Normal 43.0-75.0 [facility] Comment on above: Performed By: #### C BC #### [facility] [address] [place] [address] Dr. Eran Chacon Platelet mean volume (Bld) [Entitic vol] 8.8 fL Critically low 9.5-13.5 [facility] Comment on above: Performed By: #### C BC #### [facility] [address] [place] [address] Dr. Eran Chacon PLT 287 103/ul Normal 150-450 [facility] Comment on above: Performed By: #### C BC #### [facility] [address] [place] [address] Dr. Eran Chacon RBC 5.37 106/ul Normal 4.70-6.10 [facility] Comment on above: Performed By: #### C BC #### [facility] [address] [place] [address] Dr. Eran Chacon WBC 9.9 103/ul Normal 4.0-11.0 [facility] Comment on above: Performed By: #### C BC #### [facility] [address] [place] [address] Dr. Eran Chacon ER URINE PROFILEon 2 Bilirubin Ql (U) Negative Normal NEGATIVE [facility] Comment on above: Performed By: #### Med SHER UMICRO #### [facility] [address] [place] [address] Dr. Eran Chacon Clarity (U) CLEAR Normal CLEAR [facility] Comment on above: Performed By: #### Med SHER UMICRO #### [facility] [address] [place] [address] Dr. Eran Chacon Color (U) YELLOW Normal YELLOW [facility] Comment on above: Performed By: #### HANNA BATES #### [facility] [address] [place] [address] Dr. Eran Tellez micrscopic examination will be performed if indicated. Normal [facility] Comment on above: Performed By: #### BISHNU BATESRO #### [facility] [address] [address] [address] Eran Chacon Glucose Ql (U) 500 mg/dl Abnormal NEGATIVE [facility] Comment on above: Performed By: #### BISHNU BATESRO #### [facility] [address] [place] [address] Dr. Eran Chacon Hemoglobin Ql (U) TRACE-INTACT Abnormal NEGATIVE [facility] Comment on above: Performed By: #### BISHNU BATESRO #### [facility] [address] [place] [address] Dr. Eran Chacon Ketones Ql (U) Negative Normal NEGATIVE [facility] Comment on above: Performed By: #### BISHNU BATESRO #### [facility] [address] [place] [address] Dr. Eran Chacon LEUKOCYTES Negative Normal NEGATIVE [facility] Comment on above: Performed By: #### BISHNU BATESRO #### [facility] [address] [place] [address] Dr. Eran Chacon Nitrite Ql (U) Negative Normal NEGATIVE [facility] Comment on above: Performed By: #### BISHNU BATESRO #### [facility] [address] [place] [address] Dr. Eran Chacon pH (U) 6.0 [pH] Normal 5-9 [facility] Comment on above: Performed By: #### BISHNU BATESRO #### [facility] [address] [place] [address] Dr. Eran Chacon SPEC GRAVITY 1.025 Normal 1.005-<=1.02 5 [facility] Comment on above: Performed By: #### HANNA BATES #### [facility] [address] [place] [address] Dr. Eran Chacon UA PROTEIN Negative Normal NEGATIVE/ TRACE [facility] Comment on above: Performed By: #### HANNA BATES #### [facility] [address] [place] [address] Dr. Eran Chacon UR MICRO IND INDICATED Normal [facility] Comment on above: Performed By: #### HANNA BATES #### [facility] [address] [place] [address] Dr. Eran Chacon Urobilinogen Qn (U) 0.2 {Aureliano'U}/dL Normal 0.2 - 1. 0 [facility] Comment on above: Performed By: #### HANNA BATES #### [facility] [address] [place] [address] Dr. Eran Chacon PROF 14(COMP METB)on 022 Albumin [Mass/Vol] 4.0 g/dL Normal 3.4-5.0 [facility] Comment on above: Performed By: #### C MP #### [facility] [address] [place] [address] Dr. Eran Chacon Albumin/Globulin [Mass ratio] 1.2 {ratio} Normal [facility] Comment on above: Performed By: #### C MP #### [facility] [address] [place] [address] Dr. Eran Chacon ALP [Catalytic activity/Vol] 104 U/L Normal 46-116 [facility] Comment on above: Performed By: #### C MP #### [facility] [address] [place] [address] Dr. Eran Chacon ALT [Catalytic activity/Vol] 28 U/L Normal 16-63 [facility] Comment on above: Performed By: #### C MP #### [facility] [address] [place] [address] Dr. Eran Chacon Anion gap [Moles/Vol] 7.2 mmol/L Normal [facility] Comment on above: Performed By: #### C MP #### [facility] [address] [place] [address] Dr. Eran Chacon AST [Catalytic activity/Vol] 14 U/L Critically low 15-37 [facility] Comment on above: Performed By: #### C MP #### [facility] [address] [place] [address] Dr. Eran Chacon Bilirubin [Mass/Vol] 0.4 mg/dL Normal 0.2-1.0 [facility] Comment on above: Performed By: #### C MP #### [facility] [address] [place] [address] Dr. Eran Chacon Calcium [Mass/Vol] 9.0 mg/dL Normal 8.5-10.1 [facility] Comment on above: Performed By: #### C MP #### [facility] [address] [place] [address] Dr. Eran Chacon Chloride [Moles/Vol] 103 mmol/L Normal 98-107 [facility] Comment on above: Performed By: #### C MP #### [facility] [address] [place] [address] Dr. Eran Chacon CO2 [Moles/Vol] 30.0 mmol/L Normal 21.0-32.0 [facility] Comment on above: Performed By: #### C MP #### [facility] [address] [place] [address] Dr. Eran Chacon Creatinine [Mass/Vol] 0.85 mg/dL Normal 0.70-1.30 [facility] Comment on above: Performed By: #### C MP #### [facility] [address] [place] [address] Dr. Eran Chacon EGFR-AF COLOMBIAN >60 Normal >=60 [facility] Comment on above: Performed By: #### C MP #### [facility] [address] [place] [address] Dr. Eran Chacon EGFR-NON AF COLOMBIAN >60 Normal >=60 [facility] Comment on above: Performed By: #### C MP #### [facility] [address] [place] [address] Dr. Eran Chacon Globulin (S) [Mass/Vol] 3.3 g/dL Normal [facility] Comment on above: Performed By: #### C MP #### [facility] [address] [address] [address] Eran Chacon Glucose [Mass/Vol] 165 mg/dL Critically high 74-106 [facility] Comment on above: Performed By: #### C MP #### [facility] [address] [address] [address] Eran Chacon Potassium [Moles/Vol] 4.2 mmol/L Normal 3.5-5.1 [facility] Comment on above: Performed By: #### C MP #### [facility] [address] [address] [address] Eran Chacon Protein [Mass/Vol] 7.3 g/dL Normal 6.4-8.2 [facility] Comment on above: Performed By: #### C MP #### [facility] [address] [place] [address] Dr. Eran Chacon Sodium [Moles/Vol] 136 mmol/L Normal 136-145 [facility] Comment on above: Performed By: #### C MP #### [facility] [address] [place] [address] Dr. Eran Chacon Urea nitrogen [Mass/Vol] 10.0 mg/dL Normal 7.0-18.0 [facility] Comment on above: Performed By: #### C MP #### [facility] [address] [place] [address] Dr. Eran Chacon Urea nitrogen/Creatinine [Mass ratio] 11.8 mg/mg Normal [facility] Comment on above: Performed By: #### C MP #### [facility] [address] [address] [address] Eran Chacon URINE MICROSCOPIC ONLYon BACTERIA NONE SEEN Normal NONE SEEN [facility] Comment on above: Performed By: #### HANNA BATES #### [facility] [address] [address] [address] Eran Chacon Bacteria identified Cx Nom (U) NOT INDICATED Normal [facility] Comment on above: Performed By: #### HANNA BATES #### [facility] [address] [place] [address] Dr. Eran Chacon CAST NONE SEEN Normal NONE SEEN [facility] Comment on above: Performed By: #### Med SHER UMKATHERINRO #### [facility] [address] [place] [address] Dr. Eran Chacon Crystals LM Nom (Urine sed) NONE SEEN Normal NONE SEEN [facility] Comment on above: Performed By: #### Med SHER UMICRO #### [facility] [address] [place] [address] Dr. Eran Chacon Epithelial cells LM Ql (Urine sed) RARE Normal NONE SEEN /RARE [facility] Comment on above: Performed By: #### Med SHER UMKATHERINRO #### [facility] [address] [place] [address] Dr. Eran Chacon MUCOUS NONE SEEN Normal NONE SEEN [facility] Comment on above: Performed By: #### Med SHER UMKATHERINRO #### [facility] [address] [place] [address] Dr. Eran Chacon RBC 0-2 Normal 0-2 [facility] Comment on above: Performed By: #### Med SHER UMKATHERINRO #### [facility] [address] [place] [address] Dr. Eran Chacon WBC 2-5 Abnormal NONE SEEN [facility] Comment on above: Performed By: #### BISHNU BATESRO #### [facility] [address] [place] [address] Dr. Eran Chacon MRI SHOULDER LT WO [...] by: YEISON NAVAS Date: 2022-02-02 17:09 Normal [facility] Vital Signs Date Time Vital Sign Value Performing Clinician Facility 06-17-2024 09:13-0400 Body height 175.26 cm MD Jeremy Magallanes Work Phone: [facility] 06-17-2024 09:13-0400 Body mass index (BMI) [Ratio] 33.5 kg/m2 MD Jeremy Magallanes Work Phone: [facility] 06-17-2024 09:13-0400 Body temperature 98.1 [degF] MD Jeremy Magallanes Work Phone: [facility] 06-17-2024 09:13-0400 Body weight 102.96 kg MD Jeremy Magallanes Work Phone: [facility] 06-17-2024 09:13-0400 Diastolic blood pressure 83 mm[Hg] MD Jeremy Magallanes Work Phone: [facility] 06-17-2024 09:13-0400 Heart rate 79 /min MD Jeremy Magallanes Work Phone: [facility] 06-17-2024 09:13-0400 Systolic blood pressure 149 mm[Hg] MD Jeremy Magallanes Work Phone: [facility] 05-27-2024 14:56-0400 Body height 175.3 cm [employer] DEPARTMENT OF SOCIOLOGY CHAIR-ASSOCIATE DIRECTOR OF NURSING Work Phone: [facility] 05-27-2024 14:56-0400 Body mass index (BMI) [Ratio] 33.97 kg/m2 [employer] DEPARTMENT OF SOCIOLOGY CHAIR-ASSOCIATE DIRECTOR OF NURSING [facility] 05-27-2024 14:56-0400 Body weight 104.33 kg [employer] DEPARTMENT OF SOCIOLOGY CHAIR-ASSOCIATE DIRECTOR OF NURSING Work Phone: [facility] [employer] 04-07-2024 10:04-0400 Body height 180.3 cm Malathi Sanchez MD Work Phone: [facility] 04-07-2024 10:04-0400 Body mass index (BMI) [Ratio] 32.78 kg/m2 Malathi Sanchez MD Work Phone: [facility] 04-07-2024 10:04-0400 Body weight 106.59 kg Malathi Sanchez MD Work Phone: [facility] 04-07-2024 10:04-0400 Diastolic blood pressure 88 mm[Hg] Malathi Sanchez MD Work Phone: [facility] 04-07-2024 10:04-0400 Systolic blood pressure 184 mm[Hg] Malathi Sanchez MD Work Phone: [facility] 03-18-2024 08:46-0400 Body height 175.26 cm [facility] 03-18-2024 08:46-0400 Body mass index (BMI) [Ratio] 34.4 kg/m2 [facility] 03-18-2024 08:46-0400 Body weight 105.68 kg [facility] 03-18-2024 08:46-0400 Diastolic blood pressure 80 mm[Hg] [facility] 03-18-2024 08:46-0400 Heart rate 72 /min [facility] 03-18-2024 08:46-0400 Systolic blood pressure 130 mm[Hg] [facility] 03-03-2024 11:54-0400 Body height 175.26 cm [facility] 03-03-2024 11:54-0400 Body mass index (BMI) [Ratio] 34.7 kg/m2 [facility] 03-03-2024 11:54-0400 Body weight 106.59 kg [facility] 03-03-2024 11:54-0400 Diastolic blood pressure 81 mm[Hg] [facility] 03-03-2024 11:54-0400 Heart rate 69 /min [facility] 03-03-2024 11:54-0400 Systolic blood pressure 129 mm[Hg] [facility] 12-17-2023 08:54-0400 Body height 175.26 cm [facility] 12-17-2023 08:54-0400 Body mass index (BMI) [Ratio] 35.2 kg/m2 [facility] 12-17-2023 08:54-0400 Body weight 108.4 kg [facility] 12-17-2023 08:54-0400 Diastolic blood pressure 76 mm[Hg] [facility] 12-17-2023 08:54-0400 Heart rate 76 /min [facility] 12-17-2023 08:54-0400 Systolic blood pressure 154 mm[Hg] [facility] 12-05-2023 08:52-0400 Body height 175.26 cm [facility] 12-05-2023 08:52-0400 Body mass index (BMI) [Ratio] 35 kg/m2 [facility] 12-05-2023 08:52-0400 Body weight 107.67 kg [facility] 12-05-2023 08:52-0400 Diastolic blood pressure 78 mm[Hg] [facility] 12-05-2023 08:52-0400 Heart rate 69 /min [facility] 12-05-2023 08:52-0400 Systolic blood pressure 147 mm[Hg] [facility] 09-13-2023 13:30-0500 Body height 175.26 cm Jeremy Magallanes Other [facility] 09-13-2023 13:30-0500 Body mass index (BMI) [Ratio] 33.22 kg/m2 Jeremy Magallanes Other [facility] [employer] Other 09-13-2023 13:30-0500 Body temperature 98.4 [degF] Jeremy Magallanes Other [facility] [employer] Other 09-13-2023 13:30-0500 Body weight 102.06 kg Jeremy Magallanes Other [facility] [employer] Other 09-13-2023 13:30-0500 Body weight 102.05 kg [facility] 09-13-2023 13:30-0500 Diastolic blood pressure 80 mm[Hg] Jeremy Magallanes Other [facility] 09-13-2023 13:30-0500 SaO2% (BldA) [Mass fraction] 93 % Jeremy Magallanes Other [facility] [employer] Other 09-13-2023 13:30-0500 Systolic blood pressure 118 mm[Hg] Jeremy Magallanes Other [facility] 08-13-2023 10:30-0500 Body height 175.26 cm Jeremy Magallanes Other [employer] [facility] [employer] Other 08-13-2023 10:30-0500 Body mass index (BMI) [Ratio] 33.9 kg/m2 Jeremy Magallanes Other [employer] Other 08-13-2023 10:30-0500 Body weight 104.15 kg Jeremy Magallanes Other [employer] Other 08-13-2023 10:30-0500 Diastolic blood pressure 78 mm[Hg] Jeremy Magallanes Other [employer] Other 08-13-2023 10:30-0500 Systolic blood pressure 124 mm[Hg] Jeremy Magallanes Other [employer] Other 06-25-2023 08:45-0500 Body height 175.26 cm Jeremy Magallanes Other [employer] Other 06-25-2023 08:45-0500 Body mass index (BMI) [Ratio] 33.37 kg/m2 Jeremy Magallanes Other [employer] Other 06-25-2023 08:45-0500 Body temperature 96.5 [degF] Jeremy Magallanes Other [employer] Other 06-25-2023 08:45-0500 Body weight 102.51 kg Jeremy Magallanes Other [employer] Other 06-25-2023 08:45-0500 Diastolic blood pressure 85 mm[Hg] Jeremy Magallanes Other [employer] Other 06-25-2023 08:45-0500 Systolic blood pressure 149 mm[Hg] Jeremy Magallanes Other [employer] Other 05-28-2023 10:45-0400 Body height 175.26 cm Jeremy Magallanes Other [employer] Other 05-28-2023 10:45-0400 Body mass index (BMI) [Ratio] 33.52 kg/m2 Jeremy Magallanes Other [employer] Other 05-28-2023 10:45-0400 Body weight 102.97 kg Jeremy Magallanes Other [employer] Other 05-28-2023 10:45-0400 Diastolic blood pressure 82 mm[Hg] Jeremy Magallanes Other [employer] Other 05-28-2023 10:45-0400 Systolic blood pressure 147 mm[Hg] Jeremy Magallanes Other [employer] Other 2023 08:45-0400 Body height 175.26 cm Jeremy Magallanes Other [employer] Other 2023 08:45-0400 Body mass index (BMI) [Ratio] 33.52 kg/m2 Jeremy Magallanes Other [employer] Other 2023 08:45-0400 Body weight 102.97 kg Jeremy Magallanes Other [employer] Other 2023 08:45-0400 Diastolic blood pressure 85 mm[Hg] Jeremy Magallanes Other [employer] Other 2023 08:45-0400 Systolic blood pressure 156 mm[Hg] Jeremy Magallanes Other [employer] Other 04-30-2023 09:45-0400 Body height 175.26 cm Jeremy Magallanes Other [employer] Other 04-30-2023 09:45-0400 Body mass index (BMI) [Ratio] 34.32 kg/m2 Jeremy Magallanes Other [employer] Other 04-30-2023 09:45-0400 Body temperature 96.2 [degF] Jeremy Magallanes Other [employer] Other 04-30-2023 09:45-0400 Body weight 105.42 kg Jeremy Magallanes Other [employer] Other 04-30-2023 09:45-0400 Diastolic blood pressure 78 mm[Hg] Jeremy Magallanes Other [employer] Other 04-30-2023 09:45-0400 Respiratory rate 16 /min Jeremy Magallanes Other [employer] Other 04-30-2023 09:45-0400 Systolic blood pressure 146 mm[Hg] Jeremy Magallanes Other [employer] Other 02-20-2023 09:15-0400 Body height 175.26 cm Jeremy Magallanes Other [employer] Other 02-20-2023 09:15-0400 Body mass index (BMI) [Ratio] 33.46 kg/m2 Jeremy Magallanes Other [employer] Other 02-20-2023 09:15-0400 Body weight 102.79 kg Jeremy Magallanes Other [employer] Other 02-20-2023 09:15-0400 Diastolic blood pressure 77 mm[Hg] Jeremy Magallanes Other [employer] Other 02-20-2023 09:15-0400 Systolic blood pressure 131 mm[Hg] Jeremy Magallanes Other [employer] Other 01-17-2023 08:45-0400 Body height 175.26 cm Jeremy Magallanes Other [employer] Other 01-17-2023 08:45-0400 Body mass index (BMI) [Ratio] 33.37 kg/m2 Jeremy Magallanes Other [employer] Other 01-17-2023 08:45-0400 Body weight 102.51 kg Jeremy Magallanes Other [employer] Other 01-17-2023 08:45-0400 Diastolic blood pressure 79 mm[Hg] Jeremy Magallanes Other [employer] Other 01-17-2023 08:45-0400 Systolic blood pressure 128 mm[Hg] Jeremy Magallanes Other [employer] Other 11-23-2022 09:30-0400 Body height 175.26 cm Jeremy Magallanes Other [employer] Other 11-23-2022 09:30-0400 Body mass index (BMI) [Ratio] 33.96 kg/m2 Jeremy Magallanes Other [employer] Other 11-23-2022 09:30-0400 Body weight 104.33 kg Jeremy Magallanes Other [employer] Other 11-23-2022 09:30-0400 Diastolic blood pressure 72 mm[Hg] Jeremy Magallanes Other [employer] Other 11-23-2022 09:30-0400 Systolic blood pressure 122 mm[Hg] Jeremy Magallanes Other [employer] Other 09-04-2022 11:30-0500 Body height 175.26 cm Jeremy Magallanes Other [employer] Other 09-04-2022 11:30-0500 Body mass index (BMI) [Ratio] 33.52 kg/m2 Jeremy Magallanes Other [employer] Other 09-04-2022 11:30-0500 Body weight 102.97 kg Jeremy Magallanes Other [employer] Other 09-04-2022 11:30-0500 Diastolic blood pressure 80 mm[Hg] Jeremy Magallanes Other [employer] Other 09-04-2022 11:30-0500 SaO2% (BldA) [Mass fraction] 95 % Jeremy Magallanes Other [employer] Other 09-04-2022 11:30-0500 Systolic blood pressure 122 mm[Hg] Jeremy Magallanes Other [employer] Other 02-06-2022 12:45-0400 Body height 175.26 cm Kesha Olexa Other [employer] Other 02-06-2022 12:45-0400 Body mass index (BMI) [Ratio] 31.01 kg/m2 Kesha Olexa Other [employer] Other 02-06-2022 12:45-0400 Body weight 95.26 kg Kesha Olexa Other [employer] Other 05-26-2021 13:15-0400 Body height 175.26 cm Harriet Ginty Other [employer] Other 05-26-2021 13:15-0400 Body mass index (BMI) [Ratio] 31.01 kg/m2 Harriet Ginty Other [employer] Other 05-26-2021 13:15-0400 Body temperature 98.3 [degF] Harriet Ginty Other [employer] Other 05-26-2021 13:15-0400 Body weight 95.26 kg Harriet Mo Other [facility] [employer] [employer] Other 05-26-2021 13:15-0400 SaO2% (BldA) [Mass fraction] 96 % Harriet Mo Other [facility] [employer] Other Encounters Encounter Date Encounter Type Care Provider Facility Start: 08-17-2024 End: 08-17-2024 ambulatory Zacarias Pike MD Facility:[facility] Start: 06-17-2024 End: 06-17-2024 ambulatory MD Jeremy Magallanes Work Phone: [facility] Work Phone: Start: 06-17-2024 End: 06-17-2024 Patient encounter procedure MD Jeremy Magallanes Work Phone: [facility] Work Phone: Start: 06-12-2024 End: 06-12-2024 Orders Only Not In System Ref Prov [facility] Start: 06-10-2024 End: 06-10-2024 Orders Only Rosalia Shea [facility] Comment on above: Dysphagia, unspecifi ed type; Black stools Start: 06-03-2024 End: 06-03-2024 ambulatory MD Jeremy Magallanes Work Phone: [facility] Work Phone: Start: 06-03-2024 End: 06-03-2024 Departed Referred MD Jeremy Magallanes Work Phone: [facility] Start: 06-03-2024 Non-patient / Non-visit MD Angelina Magallanes Work Phone: [facility] Phys[facility] Work Phone: Start: 05-27-2024 End: 05-27-2024 Office outpatient new 30 minutes Priyanka Vaz DEPARTMENT OF SOCIOLOGY CHAIR-ASSOCIATE DIRECTOR OF NURSING Work Phone: [facility] Comment on above: Dysphagia, unspecifi ed type (Primary Dx); Black stools; Gastroesophageal reflux disease, unspecified whether esophagitis present; Abnormal esophagram Start: 05-27-2024 End: 05-27-2024 ambulatory PRIYANKA Rosalinda VAZ [facility] Start: 05-18-2024 End: 05-18-2024 ambulatory Zacarias Pike MD Facility: [facility] Start: 05-14-2024 End: 05-21-2024 Telephone encounter Ameya Meraz MD Work Phone: General Surgery Comment on above: New Patient; Care Co ordinator - Other Start: 05-04-2024 End: 05-04-2024 Telephone encounter Malathi Sanchez MD Work Phone: [facility] Start: 04-07-2024 End: 04-07-2024 Bamboo flowsheet Malathi Sanchez MD Work Phone: [facility] Start: 04-07-2024 End: 04-07-2024 Bamblazeo sophia Sanchez MD Work Phone: [facility] Start: 04-07-2024 End: 04-07-2024 Office outpatient new 45 minutes Malathi Sanchez MD Work Phone: [facility] Comment on above: Esophageal dysphagia (Primary Dx); Neck mass Start: 04-07-2024 End: 04-07-2024 ambulatory MALATHI SANCHEZ Not Available Start: 04-06-2024 End: 04-06-2024 ambulatory Zacarias Pike MD Facility: [facility] Start: 03-18-2024 End: 03-18-2024 ambulatory [facility] Work Phone: Start: 03-18-2024 End: 03-18-2024 Patient encounter procedure [facility] Work Phone: Start: 03-16-2024 End: 03-16-2024 ambulatory Zacarias Pike MD [facility] Start: 03-03-2024 End: 03-03-2024 ambulatory [facility] Work Phone: Start: 03-03-2024 End: 03-03-2024 Patient encounter procedure [facility] Physician [facility] Work Phone: Start: 02-27-2024 Non-patient / Non-visit [facility] Work Phone: Start: 02-24-2024 End: 02-24-2024 ambulatory Zacarias Pike MD Facility:[facility] Start: 02-03-2024 End: 02-03-2024 ambulatory Zacarias Pike MD Facility:[facility] Start: 01-20-2024 End: 01-20-2024 ambulatory Zacarias Pike MD Facility:[facility] Start: 12-17-2023 End: 12-17-2023 ambulatory [facility] Work Phone: Start: 12-17-2023 End: 12-17-2023 Patient encounter procedure [facility] Work Phone: Start: 12-05-2023 End: 12-05-2023 ambulatory [facility] Work Phone: Start: 12-05-2023 End: 12-05-2023 Patient encounter procedure [facility] Work Phone: Start: 10-23-2023 Non-patient / Non-visit [facility] Work Phone: Start: 10-08-2023 Non-patient / Non-visit [facility] Work Phone: Start: 10-07-2023 End: 10-07-2023 ambulatory BARBIE TAPIA Not Available Start: 09-18-2023 End: 09-18-2023 ambulatory Jeremy Magallanes Other [facility] Other Start: 09-18-2023 Telephone encounter Jeremy Magallanes [facility] Start: 09-13-2023 End: 09-13-2023 ambulatory Jeremy Magallanes Other [employer] Other Start: 09-13-2023 Office outpatient vi sit 15 minutes Jeremy Magallanes [facility] Start: 09-13-2023 End: 09-13-2023 Patient encounter procedure [facility]- Start: 09-11-2023 Telephone [...] 09-10-2023 End: 09-10-2023 ambulatory Jeremy Magallanes Other [employer] Other Start: 09-10-2023 Telephone encounter Jeremy Magallanes [facility] Start: 09-06-2023 End: 09-06-2023 ambulatory Jeremy Magallanes Other [employer] Other Start: 09-06-2023 Telephone encounter Jeremy Magallanes [facility] Start: 09-02-2023 End: 09-02-2023 ambulatory BARBIE Tellez [facility] Not Available Start: 08-20-2023 End: 08-20-2023 ambulatory Jeremy Magallanes Other [employer] Other Start: 08-20-2023 Telephone encounter Jeremy Magallanes [facility] Start: 08-13-2023 End: 08-13-2023 ambulatory Jeremy Magallanes Other [employer] Other Start: 08-13-2023 Office outpatient vi sit 25 minutes Jeremy Magallanes [facility] Start: 08-13-2023 Telephone encounter Jeremy Magallanes [facility] Start: 08-06-2023 End: 08-06-2023 ambulatory Jeremy Magallanes Other [employer] Other Start: 08-06-2023 Telephone encounter Jeremy Magallanes [facility] Start: 07-29-2023 End: 07-29-2023 ambulatory BARBIE Tellez [employer] Not Available Start: 07-22-2023 End: 07-22-2023 ambulatory Jeremy Magallanes Other [employer] Other Start: 07-22-2023 Telephone encounter Jeremy Magallanes [facility] Start: 07-19-2023 End: 07-19-2023 ambulatory Jeremy Magallanes Other [employer] Other Start: 07-19-2023 Telephone encounter Jeremy Magallanes [facility] Start: 07-18-2023 End: 07-18-2023 ambulatory Jeremy Magallanes Other [employer] Other Start: 07-18-2023 Telephone encounter Jeremy Magallanes [facility] Start: 07-02-2023 End: 07-02-2023 ambulatory Jeremy Magallanes Other [employer] Other Start: 07-02-2023 Office outpatient vi sit 15 minutes Jeremy Magallanes [facility] Start: 07-02-2023 Telephone encounter Jeremy Magallanes [facility] Start: 06-25-2023 End: 06-25-2023 ambulatory Jeremy Magallanes Other [employer] Other Start: 06-25-2023 Office outpatient vi sit 15 minutes Jeremy Sona [facility] Start: 06-21-2023 End: 06-21-2023 ambulatory Jeremy Magallanes Other [employer] Other Start: 06-21-2023 Encounter by compute r brayden Jeremy Sona [facility] Start: 06-20-2023 End: 06-20-2023 ambulatory Jeremy Magallanes Other [employer] Other Start: 06-20-2023 Telephone encounter Jeremy Sona [facility] Start: 06-17-2023 End: 06-17-2023 ambulatory Jeremy Sona Other [employer] Other Start: 06-17-2023 Telephone encounter Jeremy Sona [facility] Start: 06-10-2023 End: 06-10-2023 ambulatory Jeremy Magallanes Other [employer] Other Start: 06-10-2023 Telephone encounter Jeremy Sona [facility] Start: 06-03-2023 End: 06-03-2023 ambulatory Jeremy Magallanes Other [employer] Other Start: 06-03-2023 Telephone encounter Jeremy Sona [facility] Start: 05-30-2023 End: 05-31-2023 ambulatory Barbie Tapia Facility[facility] Start: 05-30-2023 End: 05-30-2023 Patient encounter procedure Barbie Tapia [facility] Start: 05-28-2023 End: 05-28-2023 ambulatory Jeremy Magallanes Other [employer] Other Start: 05-28-2023 Office outpatient vi sit 15 minutes Jeremy Magallanes [facility] Start: 2023 End: 2023 ambulatory Jeremy Magallanes Other [employer] Other Start: 2023 Office outpatient vi sit 15 minutes Jeremy Magallanes [facility] Start: 05-16-2023 End: 05-16-2023 ambulatory Jeremy Magallanes Other [employer] Other Start: 05-16-2023 Telephone encounter Jeremy Magallanes [facility] Start: 04-30-2023 End: 04-30-2023 ambulatory Jeremy Magallanes Other [employer] Other Start: 04-30-2023 Office outpatient vi sit 15 minutes Jeremy Magallanes [facility] Start: 04-26-2023 End: 04-26-2023 ambulatory Jeremy Magallanes Other [employer] Other Start: 04-26-2023 Telephone encounter Jeremy Magallanes [facility] Start: 04-23-2023 End: 04-23-2023 ambulatory Jeremy Magallanes Other [employer] Other Start: 04-23-2023 Telephone encounter Jeremy Magallanes [facility] Start: 03-25-2023 End: 03-25-2023 ambulatory Jeremy Magallanes Other [employer] Other Start: 03-25-2023 Telephone encounter Jeremy Magallanes [facility] Start: 03-06-2023 End: 03-06-2023 ambulatory Jeremy Magallanes Other [employer] Other Start: 03-06-2023 Telephone encounter Jeremy Magallanes [facility] Start: 02-20-2023 End: 02-20-2023 ambulatory Jeremy Magallanes Other [employer] Other Start: 02-20-2023 Office outpatient vi sit 25 minutes Jeremy Magallanes [facility] Start: 02-05-2023 End: 02-05-2023 ambulatory Jeremy Magallanes Other [employer] Other Start: 02-05-2023 Telephone encounter Jeremy Magallanes [facility] Start: 01-21-2023 End: 01-21-2023 ambulatory Jeremy Magallanes Other [employer] Other Start: 01-21-2023 Telephone encounter Jeremy Magallanes [employer] Start: 01-17-2023 End: 01-17-2023 ambulatory Jeremy Magallanes Other [employer] Other Start: 01-17-2023 Office outpatient vi sit 15 minutes Jeremy Magallanes [facility] Start: 12-24-2022 End: 12-24-2022 ambulatory Jeremy Magallanes Other [employer] Other Start: 12-24-2022 Telephone encounter Jeremy Magallanes [facility] Start: 12-03-2022 End: 12-03-2022 ambulatory Jeremy Magallanes Other [employer] Other Start: 12-03-2022 Telephone encounter Jeremy Magallanes [facility] Start: 11-27-2022 End: 11-27-2022 ambulatory Jeremy Magallanes Other [employer] Other Start: 11-27-2022 Telephone encounter Jeremy Magallanes [facility] Start: 11-26-2022 End: 11-26-2022 ambulatory Jeremy Magallanes Other [employer] Other Start: 11-26-2022 Telephone encounter Jeremy Magallanes [facility] Start: 11-24-2022 End: 11-25-[address] JEREMY MAGALLANES Facility:[facility] Start: 11-23-2022 End: 11-23-2022 ambulatory Jeremy Magallanes Other [employer] Other Start: 11-23-2022 Office outpatient vi sit 15 minutes Jeremy Magallanes [facility] Start: 11-05-2022 End: 11-05-2022 ambulatory Jeremy Magallanes Other [employer] Other Start: 11-05-2022 Telephone encounter Jeremy Magallanes [facility] Start: 10-03-2022 End: 10-03-2022 ambulatory Jeremy Magallanes Other [employer] Other Start: 10-03-2022 Telephone encounter Jeremy Magallanes [facility] Start: 09-04-2022 End: 09-04-2022 ambulatory Jeremy Magallanes Other [employer] Other Start: 09-04-2022 Office outpatient vi sit 25 minutes Jeremy Magallanes [facility] Start: 07-26-[address] JEREMY MAGALLANES Facil ity:[facility] Start: 07-19-2022 End: 07-20-[address] WILFREDO ENGLE Facility:[facility] Start: 06-07-2022 End: 06-07-[address] JEREMY MAGALLANES Facility:[facility] Start: 03-15-2022 ambulatory KESHA TRUJILLO Facility:[facility] Start: 02-06-2022 End: 02-06-2022 ambulatory Kesha Trujillo Other [employer] Other Start: 02-06-2022 Office outpatient vi sit 25 minutes Kesha Trujillo [facility] Start: 02-02-2022 End: 02-03-2022 ambulatory KESHA TRUJILLO Facility:[facility] Start: 12-28-2021 End: 12-28-[address] JEREMY MAGALLANES Facility:[facility] Start: 12-12-2021 End: 12-13-2021 ambulatory KESHA TRUJILLO [employer] Other Start: 12-12-2021 Office outpatient ne w 30 minutes Kesha Ronnie [facility] Start: 05-26-2021 Office outpatient vi sit 15 minutes Harriet Ginty [facility] Procedures Date Procedure Procedure Detail Performing Clinician Start: 06-03-2024 Esophagogastroduodenoscopy Priyanka vázquez DEPARTMENT OF SOCIOLOGY CHAIR-ASSOCIATE DIRECTOR OF NURSING Work Phone: Start: 06-03-2024 Level i surg [...] Td Vaccines (3 - Td or Tdap) [facility] Start: 05-27-2025 Adult BMI Screening Adult BMI Screening [facility] Start: 05-27-2025 Tobacco Screening Tobacco Screening [facility] Start: 04-19-2024 Influenza vaccination Influenza Vaccine [facility] Start: 04-07-2024 End: 04-07-2024 Patient encounter procedure 04/07/2024 10:30 AM EDT Office Visit [facility] [address] [facility] [address] [place] [id number] Malathi Sanchez MD [address] [facility] [address] [place] [address] Arrived [facility] Comment on above: Arrived Start: 03-18-2024 Patient referral [facility] Work Phone: Start: 10-07-2023 End: 10-07-2023 Patient encounter procedure 10/07/2023 8:00 AM EST Office Visit [facility] [address] [facility] [place] [address] Barbie Tapia DO [address] [place] [address] [facility] Start: 2010 Administration of varicella zoster vaccine Zoster (Shingles) Vaccine (1 of 2) [facility] Start: 1978 Adult BMI Follow Up Plan Adult BMI Follow Up Plan [facility] Start: 1972 Depression Screening Depression Screening [facility] Start: 1960 Tobacco Counseling Tobacco Counseling [facility] CT Chest WO contrast [facility] End: 05-27-2025 Esophagogastroduodenoscopy EGD GI Routine Dysphagia, unspecified type Black stools 1 Occurrences starting 05/27/2024 until 05/27/2025 [facility] Work Phone: Comment on above: 1 Occurrences starting 05/27/2024 until 05/27/2025 Patient referral [facility] Work Phone: XR Pelvis and Hip - bilateral Views [facility] Immunizations Immunization Date Immunization Notes Care Provider Fa [facility] 06-02-2018 Influenza, injectabl e, Madin Kyleigh Canine Kidney, preservative free, quadrivalent Argentina Clinton PT Work Phone: [facility] 06-02-2018 influenza virus vaccine, unspecified formulation Priyanka Kamari BENAVIDES-ASSOCIATE DIRECTOR OF NURSING Work Phone: [facility] 05-17-2017 influenza virus vaccine, split virus (incl. purified surface antigen) Jeremy Magallanes Other [employer] Other 05-17-2017 influenza virus vaccine, unspecified formulation [facility] 05-16-2017 influenza, injectabl e, quadrivalent, preservative free Argentina Clinton PT Work Phone: [facility] 06-28-2016 influenza, injectabl e, quadrivalent, preservative free Argentina Clinton PT Work Phone: [facility] 06-28-2016 tetanus and diphther ia toxoids, adsorbed, preservative free, for adult use (5 Lf of tetanus toxoid and 2 Lf of diphtheria toxoid) Jeremy Magallanes Other [facility] 05-25-2015 influenza, seasonal, injectable, preservative free Argentina Clinton PT Work Phone: [facility] 05-25-2015 tetanus and diphther ia toxoids, adsorbed, preservative free, for adult use (5 Lf of tetanus toxoid and 2 Lf of diphtheria toxoid) Jeremy Magallanes Other [facility] 06-15-1999 pneumococcal conjuga te vaccine, 7 valent Argentina Clinton PT Work Phone: [facility] Payers Date Payer Category Payer Medicaid [id number] 2013 Medicare [id number] 1960 Unknown [id number] 2.16.84 0.1.647850.3.579.2.593 1960 Unknown [id number] 2.16.84 0.1.690010.3.579.2.593 1960 Unknown [id number] 2.16.84 0.1.093649.3.579.2.593 1960 Unknown [id number] 2.16.84 0.1.208293.3.579.2.593 1960 Unknown [id number] 2.16.84 0.1.496396.3.579.2.593 1960 Unknown [id number] 2.16.84 0.1.731724.3.579.2.593 1960 Unknown [id number] 2.16.84 0.1.052840.3.579.2.593 1960 Unknown [id number] 2.16.84 0.1.012413.3.579.2.593 1960 Unknown [id number] 2.16.8 40.1.375817.3.579.2.727 1960 Unknown [id number] 2.16.84 0.1.337271.3.579.2.1259 1960 Unknown [id number] 2.16.84 0.1.951085.3.579.2.1259 1960 Unknown [id number] 2.16.84 0.1.074168.3.579.2.1259 1960 Unknown [id number] 2.16.84 0.1.641188.3.579.2.1259 1960 Unknown [id number] 2.16.840 .1.107964.3.579.2.1259 1960 Unknown [id number] 2.16.8 40.1.687307.3.579.2.1286 1960 Unknown [id number] 2.16. 840.1.312071.3.579.2.196 1960 Unknown [id number] 2.16. 840.1.401173.3.579.2.196 1960 Unknown [id number] 2.16. 840.1.096940.3.579.2.196 1960 Unknown [id number] 2.16. 840.1.380627.3.579.2.196 1960 Unknown [id number] 2.16. 840.1.319925.3.579.2.196 1960 Unknown [id number] 2.16. 840.1.752978.3.579.2.196 1960 Unknown [id number] 2.16. 840.1.075354.3.579.2.196 1959 Medicaid [id number] 2. [id number] 1959 Medicare [id number] 2.1 [id number] Self-pay Self Pay [id number] Social History Date Type Detail Facility Start: 09-29-2020 End: 09-02-2023 Sex Assigned At [facility] Tobacco smoking status No Smokin g Status Entered [facility] Start: 06-03-2019 End: 03-27-2023 Tobacco smoking status NHIS Smokes tobacco daily [facility] Work Phone: History of tobacco use Cigarette Smoker [facility] Start: 09-29-2020 End: 03-27-2023 Cigarettes smoked current (pack per day) - Reported 0.5 [facility] Start: 06-03-2019 End: 03-27-2023 Tobacco use and exposure Smokeless tobacco non-user [facility] Start: 09-02-2023 End: 05-27-2024 Alcohol intake Lifetime non-drinker (finding) [facility] Start: 03-27-2023 Alcohol Comment Caffine- Soda [facility] Start: 1960 Sex Assigned At Male [facility] Start: 08-21-2023 Gender identity Identifies as male gender (finding) [facility] Start: 08-21-2023 Sexual orientation Heterosexual (finding) [facility] Start: 02-06-2017 Tobacco smoking status NCIS Ex-smoker (finding) [facility] Tobacco smoking stat [facility] Tobacco smoking consumption unknown [facility] Start: 1960 Sex assigned at Not on file [facility] Frequency of Alcohol Consumption Never [facility] Start: 06-01-2019 Sex Male (finding) [facility] Medical Equipment Procedure Code Equipment Code Equipment Original Text Equi pment Identifier Dates Accu-Chek [employer] Lancet - Clinical Notes 05-26-2021 to 06-12-2024 Telephone Encounter - Evelyn Mendoza, [facility] - 06/12/2024 12:00 PM EDTTelephone Encounter - Evelyn Mendoza, [facility] - 06/12/2024 12:00 PM EDTTelephone Encounter - Evelyn Mendoza, [facility] - 06/12/2024 12:00 PM EDT Note Date & Type Note Facility 06-12-2024 Miscellaneous Notes ----- Message from Dr. Bill Henry DO sent at 06/12/2024 11:54 AM EDT ----- [...] verified with patient. [facility] Telephone encounter Note ----- Message from [...] risk of esophageal cancer. Thanks, Dr. Kc [facility] 06-12-2024 Telephone encounter Note Spoke with patient regarding pathology results. Patient verbally understood with no further questions. 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 [facility] History of Presen t illness [...] gallbladder polyp. He saw Dr. Martinez in [place] for this. He also reports a positive [...] confusion. Past Medical History: Diagnosis Date Cancer ([facility] Chronic back pain COPD (chronic obstructive pulmonary disease) ([facility] Dental disease full dentures Diabetes mellitus ([facility]) Shortness of breath Skin cancer MELANOMA & HAS HAD HX OF BASIL & SQUAMOUS Past Surgical History: Procedure Laterality Date BACK SURGERY CARPAL TUNNEL RELEASE left COLONOSCOPY OVER 20 YRS AGO EPIDURAL BLOCK INJECTION last one 03/2019 SHOULDER SURGERY Right [facility] Allergies Allergen Reactions Ibuprofen Hives and Rash [...] patient/family/caregiver Referring and communicating with other health med care manager Dysphagia, unspecified type [R13.10] CHARLEE BIGGS [facility] [place] This note was created with the assistance of a speech recognition program. While intending to generate a timely document that accurately reflects the content of the visit, no guarantee can be provided that every grammatical or spelling mistake has been or will be identified or corrected. Thank you for your understanding. CHARLEE Biggs 05/27/24 1555 documented in this encounter [facility] 05-15-2024 Telephone encounter Note Images from the original note were not included. Consult from Dr. Jeremy Magallanes (Internal Medicine) [facility] Referral received from [...] completed: 04/08/2024 Barium Swallow 03/21/2024 CT Chest [facility] 05-15-2024 Miscellaneous Notes Images from the original note were not included. Consult from Dr. Jeremy Magallanes (Internal Medicine) [facility] Referral received from [...] were not included. Referral was sent from [facility] for new consult with Dr Meraz Please see below and advise documented in this encounter [facility] 05-14-2024 Telephone encounter Note Images from the original note were not included. Referral was sent from [facility] for new consult with Dr Meraz Please see below and advise [facility] 05-04-2024 Telephone encounter Note Left message on sister's voice mail to contact Dr Magallanes's office for referral. [facility] 05-04-2024 Miscellaneous Notes Left message on sister's voice mail to contact Dr Magallanes's office for referral. That needs to be done by Dr Magallanes's office Pt's sister called in. She said her brother would like a referral sent to Dr Ameya Meraz at [facility]. He is a gastrologist. The fax number is [phone] . Pt's sister would like a call back at [phone]. documented in this encounter [facility] 05-04-2024 Telephone encounter Note That needs to be done by Dr Magallanes's office [facility] 05-04-2024 Telephone encounter Note Pt's sister called in. She said her brother would like a referral sent to Dr Ameya Meraz at [facility]. He is a gastrologist. The fax number is [phone] . Pt's sister would like a call back at [phone]. [facility] 04-07-2024 History of Presen t illness Narrative Subjective Patient ID: Alex Craig is a 63 y.o. male who presents for Neck Mass (CT @ [facility] 02/26>[facility]) Pt reports he is getting food stuck near the LES. No W/U yet, but recently found to have a liver mass and has a positive cologuard. Pt also reports he had swelling of the left side of the neck with discomfort that radiated to ear and down the neck. Tx with abx by the ED and mass resolved. CT neck obtained that shows no abnormality. Review of Systems All other systems reviewed and are negative. Family History Problem Relation Name Age of Onset Cancer Father Active Ambulatory Problems Diagnosis Date Noted Rotator cuff arthropathy of left shoulder 01/28/2023 Rotator cuff impingement syndrome of right shoulder 01/28/2023 Arthritis of left acromioclavicular joint 03/25/2023 Incomplete tear of left rotator cuff 03/25/2023 Internal derangement of left shoulder 03/25/2023 Positive colorectal cancer screening using Cologuard test 03/27/2023 Epigastric pain 03/27/2023 Gallbladder polyp 03/27/2023 Esophageal dysphagia 03/27/2023 Arthralgia 03/31/2024 Chronic obstructive pulmonary disease, unspecified (CMS/HCC) 03/31/2024 Lumbar pain 03/31/2024 Mass of left submandibular region 03/31/2024 Type II diabetes mellitus (CMS/HCC) 03/31/2024 Liver mass 04/07/2024 Kidney cysts 04/07/2024 Resolved Ambulatory Problems Diagnosis Date Noted No Resolved Ambulatory Problems Past Medical History: Diagnosis Date Arthritis COPD (chronic obstructive pulmonary disease) (CMS/HCC) Family history of cancer Hx of being hospitalized Hx of medical treatment Skin cancer Past Surgical History: Procedure Laterality Date ADENOIDECTOMY BACK SURGERY 1985 CARPAL TUNNEL RELEASE Left 09/12/2015 EXCISION skin cancer on lip HAND SURGERY 1999 LUNG BIOPSY Left SHOULDER ARTHROSCOPY Right 08/22/2023 DAP TONSILLECTOMY Allergies Allergen Reactions Cymbalta [Duloxetine Hcl] GI intolerance Fentanyl Other Reaction(s): Hives Ofloxacin Other Reaction(s): Hives Olodaterol Other Reaction(s): shortness of breath Tiotropium Other Reaction(s): shortness of breath Ibuprofen Rash hives Iodinated Contrast Media Rash hives Current Outpatient Medications on File Prior to Visit Medication Sig Dispense Refill acetaminophen-codeine (Tylenol w/ Codeine #3) 300-30 MG tablet Take 1 tablet by mouth every 6 (six) hours if needed glipiZIDE-metFORMIN (Metaglip) 5-500 MG tablet Take 2 tablets by mouth in the morning and 2 tablets before bedtime. tiZANidine (Zanaflex) 4 MG tablet Take 4 mg by mouth every 6 (six) hours if needed for muscle spasms [DISCONTINUED] albuterol HFA 90 mcg/act inhaler Inhale 2 puffs every 4 (four) hours if needed [DISCONTINUED] DULoxetine (Cymbalta) [address] capsule Take 60 mg by mouth Daily No current facility-administered medications on file prior to visit. Objective Last Recorded Vitals Vitals: 04/07/24 1004 BP: (!) 184/88 ENT Physical Exam Constitutional Appearance: patient appears well-developed and well-nourished, Head and Face Appearance: head appears normal and face appears atraumatic; Ear Ear comments: Josue ears normal Nose External Nose: nares patent bilaterally; external nose normal; Internal Nose: nasal mucosa normal; Oral Cavity/Oropharynx Lips: normal; Teeth: normal; Gums: gingiva normal; Tongue: normal; Oral mucosa: normal; Hard palate: normal; OC/OP comments: IDL - no mass or ulcer Neck Neck: neck normal; neck palpation normal; Thyroid: thyroid normal; Respiratory Inspection: breathing unlabored; normal breathing rate; Auscultation: breath sounds are clear; Cardiovascular Inspection: extremities are warm and well perfused; no peripheral edema present; Auscultation: regular rate and rhythm; Assessment/Plan Diagnoses and all orders for this visit: Esophageal dysphagia Pt's sx are very concerning for an obstructing adenocarcinoma of the esophagus, in addition to apparent metastatic colon CA. I will check an esophagram and recommend an expedited referral to GI or general surgery. Neck mass Mass resolved. F/U if recurs documented in this encounter [facility] 10-02-2023 Telephone encounter Note No attempts to hear back; closing referral. [facility] 10-02-2023 Miscellaneous Notes No attempts to hear back; closing referral. documented in this encounter [facility] 09-13-2023 Evaluation note Encounter Date Diagnosis Assessment Notes Aug, Chronic obstructive pulmonary disease, unspecified (ICD-10 - J44.9) Finish antibiotics and prednisone as prescribed. Denies pulmonary referral at this time. Hasn't smoked since 09/08 and declines chantix or patches. Aug, Current smoker (ICD-10 - F17.200) [facility] 01-23-2024 Evaluation note* Encounter Date Diagnosis Assessment Notes Treatment Notes Treatment Clinical Notes Aug, Lumbar radicular pain (ICD-10 - M54.16) [facility] Other 01-19-2024 Evaluation note* Encounter Date Diagnosis Assessment Notes Treatment Notes Treatment Clinical Notes Aug, Lumbar radicular pain (ICD-10 - M54.16) [facility] Other 12-26-2023 Evaluation note* Encounter Date Diagnosis Assessment Notes Treatment Notes Treatment Clinical Notes Jul, Type 2 diabetes mellitus with hyperglycemia, without long-term current use of insulin (ICD-10 - E11.65) [facility] Other 12-26-2023 Evaluation note* Encounter Date Diagnosis Assessment Notes Treatment Notes Treatment Clinical Notes Jul, Rotator cuff dysfunction, right (ICD-10 - M67.911) Discussed that Dr. Tapia will manage his pain meds 2 weeks postoperatively. Pt is allergic to NSAIDS. EKG from June is attached. Nicholsa is cleared for surgery next week. Jul, Type 2 diabetes mellitus with hyperglycemia, without long-term current use of insulin (ICD-10 - E11.65) Improved overall. Continue present med and dose. Jul, Disc degeneration, lumbar (ICD-10 - M51.36) Previously controlled on T3s. Neurology was treating him with regular injections as well. Plan is to return to T3s after shoulder pain has improved post-operatively. [facility] Other 12-04-2023 Evaluation note* Encounter Date Diagnosis Assessment Notes Treatment Notes Treatment Clinical Notes Jul, Type 2 diabetes mellitus with hyperglycemia, without long-term current use of insulin (ICD-10 - E11.65) [facility] Other 12-01-2023 Evaluation note* Encounter Date Diagnosis Assessment Notes Treatment Notes Treatment Clinical Notes Jul, Type 2 diabetes mellitus with hyperglycemia, without long-term current use of insulin (ICD-10 - E11.65) [facility] Other 11-30-2023 Evaluation note* Encounter Date Diagnosis Assessment Notes Treatment Notes Treatment Clinical Notes Jun, Labral tear of shoulder, right, subsequent encounter (ICD-10 - S43.431D) [facility] Other 11-14-2023 Evaluation note* Encounter Date Diagnosis [...] pain (ICD-10 - R07.9) r/o cardiac cause [facility] Other 11-07-2023 Evaluation note* Encounter Date Diagnosis [...] to decrease dose and possibly discontinue medication. [facility] Other 11-02-2023 Evaluation note* Encounter Date Diagnosis Assessment Notes Treatment Notes Treatment Clinical Notes Jun, Acute pain of right shoulder (ICD-10 - M25.511) [facility] Other 10-30-2023 Evaluation note* Encounter Date Diagnosis Assessment Notes Treatment Notes Treatment Clinical Notes May, Acute pain of right shoulder (ICD-10 - M25.511) [facility] Other 10-23-2023 Evaluation note* Encounter Date Diagnosis Assessment Notes Treatment Notes Treatment Clinical Notes May, Acute pain of right shoulder (ICD-10 - M25.511) [facility] Other 10-16-2023 Evaluation note* Encounter Date Diagnosis Assessment Notes Treatment Notes Treatment Clinical Notes May, Acute pain of right shoulder (ICD-10 - M25.511) [facility] Other 10-10-2023 Evaluation note* Encounter Date Diagnosis Assessment Notes Treatment Notes Treatment Clinical Notes May, Acute pain of right shoulder (ICD-10 - M25.511) MRI and surgery planning pending. Pt understands this is a controlled substance and to call in 1 week w update on treatment plan. May, Bronchitis (ICD-10 - J40) Finish antibiotic, rest, hydrate Steroids for wheezing. [facility] Other 10-04-2023 Evaluation note* Encounter Date Diagnosis Assessment Notes Treatment Notes Treatment Clinical Notes May, Acute pain of right shoulder (ICD-10 - M25.511) Reviewed [place] and discussed short term plan of increase in pain medication. He is due for a refill of the T3s presently. Stop them, replace w norco. Pt understands weekly prescription and will need to d/c after anticipated surgery. [facility] Other 09-12-2023 Evaluation note* Encounter Date Diagnosis [...] office and the ER visit on 04/26 [facility] Other 07-05-2023 Evaluation note* Encounter Date Diagnosis [...] and will need less prn pain med. [facility] Other 06-01-2023 Evaluation note* Encounter Date Diagnosis [...] left shoulder (ICD-10 - M25.512) as above. [facility] Other 04-17-2023 Evaluation note* Encounter Date Diagnosis Assessment Notes Treatment Notes Treatment Clinical Notes Nov, Bronchitis (ICD-10 - J40) [facility] Other 04-11-2023 Evaluation note* Encounter Date Diagnosis Assessment Notes Treatment Notes Treatment Clinical Notes Nov, Disc degeneration, lumbar (ICD-10 - M51.36) Nov, Lumbar radicular pain (ICD-10 - M54.16) [facility] Other 04-07-2023 Evaluation note* Encounter Date Diagnosis [...] quit smoking. Pt verbalizes understanding and agreement. [facility] Other 02-15-2023 Evaluation note* Encounter Date Diagnosis Assessment Notes Treatment Notes Treatment Clinical Notes Sep, Lumbar radicular pain (ICD-10 - M54.16) [facility] Other 01-17-2023 Evaluation note* Encounter Date Diagnosis [...] is outlined on the test result page. [facility] Other 10-20-2022 NoteIndication: Calculus in kidney. Comparison: [...] Electronically authenticated by: JOHN PINTO Date: 2022-06-07 20:07[facility]06-21-2022 Evaluation note* Encounter Date Diagnosis Assessment [...] of repair, infection and wound healing delays. [facility] Other 04-26-2022 NotePROCEDURE: XR SHOULDER LT 2V or > COMPARISON: None. HISTORY: Pain of left shoulder joint FINDINGS: BONES:No acute fracture or dislocation. 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 No visible soft tissue swelling. EFFUSION:None visible. OTHER: Negative. IMPRESSION: Mild osteoarthritis Electronically authenticated by: BARBIE MEMBRENO Date: 2021-12-12 15:25[id number]* Encounter Date Diagnosis Assessment Notes [...] pain of left shoulder (ICD-10 - M25.512) [facility] Other 10-08-2021 Evaluation note* Encounter Date Diagnosis [...] as needed for cough. Advised patient that [place] contains antihistamine and cough suppressant and to be cautious using other OTC cold medications. Patient to follow up with PCP if symptoms do not improve. Immediate eval if SOB, difficulty breathing, chest pain, dizziness, or other concerning symptoms. Patient verbalizes understanding and is agreeable to treatment plan [facility] [employer] Other Evaluation + Plan note No data available for this section [facility] noteNo InformationNortTitusville Area Hospital [employer] Other Evaluation note* Diagnosis Onset Date Resolution Status Arthralgia acute Lumbar pain acute Type II diabetes mellitus ac [facility] Work Phone: Evaluation note* Diagnosis Onset Date Resolution Status Arthralgia acute Lumbar pain acute Type II diabetes mellitus ac [place] Bilateral hip pain acute [facility] Work Phone: Evaluation note* Diagnosis Onset Date Resolution Status Arthralgia acute Lumbar pain acute Type II diabetes mellitus ac [place] Bilateral hip pain acute Lumbar pain acute [facility] Work Phone: Evaluation note* Diagnosis Onset Date Resolution Status Submandibular abscess acute Chronic obstructive pulmonary disease, unspecified acute Esophageal abnormality acute Mass of left submandibular region [facility] Work Phone: Evaluation note* Diagnosis Onset Date Resolution Status Chronic obstructive pulmonary disease, unspecified acute Esophageal abnormality acute Mass of left submandibular region [facility] Work Phone: Evaluation note* Diagnosis Onset Date Resolution Status 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 Hiatal hernia [facility] Work Phone: Evaluation note* Diagnosis Esophageal dysphagia- Primary Dysphagia, pharyngoesophageal phase Neck mass Swelling, mass, or lump in head and neck documented [facility] Diagnosis Dysphagia, unspecified type- Primary Black stools Nonspecific abnormal finding in stool contents Gastroesophageal reflux disease, unspecified whether esophagitis present Abnormal esophagram documented in this encounter [facility]* Diagnosis Dysphagia, unspecified type Black stools Nonspecific abnormal finding in stool contents 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 Surgical History carpal tunnel release 2016 Surgical History tonsillectomy Hospitalization History 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 Hospitalization History pneumonia [employer] [facility] [employer] Other Hospital Discharge instructions No data available for this section [facility] Discharge instructionsAmbulatory Orders* Referral to ENT Time Frame: 03/18/24, Location: None [facility] Work Phone: InstructionsNot on filedocumented in this encounter [facility] SystemInstructionsNot on filedocumented in this encounter [facility] SystemInstructionsNot on filedocumented in this encounter [facility] SystemProgress note No data available for this section [facility] Summary Purpose Family History Relationship Condition Age [...] 1 Epigastric abdominal pain (R10.13) Referral Organization [facility] [employer] Referring Provider First Name Jeremy Referring Provider Last Name Sona Referring Provider Specialty [facility] [employer] Referred Organization [facility] Referred Provider Sai Martinez Referred Address ,[place], [place],[address] Referred Provider Specialty Surgery Referral Priority Routine General Notes Es Camilo 11:38:02 AM >received today, attachments made, notes locked, referral faxed Reason 01/28/23 Access Or tho - B shoulder pain L>R - hopes for injections. Diagnosis 1 Pain in right should er (M25.511) Referral Organization [facility] [employer] Referring Provider First Name Jeremy Referring Provider Last Name Sona Referring Provider Specialty [facility] [employer] Referred Organization [facility] Referred Provider Barbie Tapia Referred Address ,[place], [place],[address] Referred Provider Specialty Orthopaedic Surgery Referral Priority Routine Referral Appointment Date 2023-01-28 General Notes Es Camilo 03:00:30 PM >received today, notes note locked, will fax when done Es Camilo 01/21/2023 10:35:11 AM >sent TE to have notes locked RazaEs johnson 01/22/2023 09:35:27 AM >notes locked, and faxed [facility] johnson 01/29/2023 10:49:42 AM >faxed first attempt letter Razaalex Es 02/05/2023 10:30:41 AM >faxed second attempt letter Es Camilo 02/12/2023 11:00:18 AM >faxed third attempt letter Es Camilo 02/13/2023 12:11:31 PM >received fax with appt date, faxed first letter for notes RazaEs johnson 02/15/2023 04:23:26 PM >notes received, and sent for review. closing out referral Reason [facility] - B shoulder pain L>R - hopes for injections. Diagnosis 1 Pain in right should er (M25.511) Referral Organization [facility] Referring Provider First Name Jeremy Referring Provider Last Name Sona Referring Provider Specialty [facility] Referred Organization [facility] Referred Provider Barbie Tapia Referred Address ,[place], [place],[address] Referred Provider Specialty Orthopaedic Surgery Referral Priority Routine General Notes RazaEs johnson 03:00:30 PM >received today, notes note locked, will fax when done RazafaithjavedEs 01/21/2023 10:35:11 AM >sent TE to have [...] call back reinier. 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 Difficulty Swallowing Nausea Vomiting Abdominal Pain RUQ PAIN (unrecognized sect ion and content) No Status Records FoundNo Status Records FoundNo Status Records FoundNo Status Records FoundNo Status Records FoundNo Status Records FoundNo Status Records Found INFORMATION SOURCE (unrecogn ized section and content) DATE CREATED AUTHOR 12/04/2022 [facility] DATE CREATED AUTHOR AUTHOR'S ORGANIZ ATION 06/01/2023 [facility] DATE CREATED AUTHOR AUTHOR'S ORGANIZ ATION 04/08/2024 [facility] dical Specialists [facility] DATE CREATED AUTHOR AUTHOR'S ORGANIZ ATION 05/23/2024 [facility] DATE CREATED AUTHOR AUTHOR'S ORGANIZ ATION 05/29/2024 [facility] DATE CREATED AUTHOR AUTHOR'S ORGANIZ ATION 06/12/2024 [facility] DATE CREATED AUTHOR AUTHOR'S ORGANIZ ATION 09/01/2024 [facility] Patient Care team informatio n (unrecognized section [...] 2024 End: June 17, 2024 Team Status: Inactive Member Role Status Dates Jeremy Magallanes MD Primary Care Provide r, Attending Provider Active Start: March 18, 2024 End: March 18, 2024 Team Status: Active Member Role Status Gloria Magallanes MD Primary Care Provider Active Start: February 27, 2024 Arnoldo Somers MD Attending Provider Active St art: February 27, 2024 Team Status: Inactive Member Role Status Gloria Magallanes MD Primary Care Provide r, Attending Provider Active Start: March 03, 2024 End: March 03, 2024 Team Status: Inactive Member Role Status Gloria [...] Provider Active Start : October 23, 2023 Major Sales Associate Relationship Specialty Start Date End Date Jeremy Magallanes MD [address] [facility] [place] [address] PCP - General Family Medicine 01/23/23 Team Status: Inactive Member Role Status Gloria Magallanes MD Attending Provider Active St art: September 13, 2023 End: September 13, 2023 Major Sales Associate Relationship Specialty Start Date End Date Jeremy Magallanes MD [address] [facility] [place] [phone] Referring Family Medicine 05/12/24 Major Sales Associate Relationship Specialty Start Date End Date Jeremy Magallanes MD [address] [place] [phone] PCP - General Family Medicine 01/23/23 Major Sales Associate Relationship Specialty Start Date End Date Jeremy Magallanes MD [address] [place] [phone] PCP - General Family Medicine 01/23/23 Major Sales Associate Relationship Specialty [place] [address] [place] [address], [place] [phone] PCP - General Family Medicine 01/23/23 Major Sales Associate Relationship Specialty [place] [address] [place] [phone] PCP - General Family Medicine 06/03/19 Major Sales Associate Relationship Specialty Start Date End Date Jeremy Magallanes MD [address] [place] [address] PCP - General Family Medicine 06/03/19 Major Sales Associate Relationship Specialty Start Date End Date Jeremy Magallanes MD [address] [place] [address] PCP - General Family Medicine 06/03/19 Major Sales Associate Relationship Specialty [place] [address] [place] [address] [place] [address] PCP - General Family Medicine 06/03/19 Goals [...] or prosecute any alcohol or drug abuse patient.[facility] FOR RECORDS PERTAINING TO PATIENTS WHO [...] BE BASED ON THE PRIMARY CLINICAL RECORDS. [facility] [employer] [facility]. provides no warranty or guarantee of the accuracy or completeness of information in this document.
--- NOTE | 2024-10-11 19:42 | ED.BACK1 ---
HPI HPI - Back Pain/Injury General Chief Complaint: Back Pain/Injury Stated Complaint: KIDNEY PAIN Time Seen by Provider: 10/11/24 19:25 Source: patient Mode of arrival: walk-in History of Present Illness HPI Narrative: This 64 male with a history of chronic back pain who has had back surgery in the past who also has kidney stones presents for evaluation of right flank pain and right upper quadrant abdominal pain. The symptoms started 4 to 5 days ago. He states he is having trouble lying on the bed due to the pain in his back. It wraps around into his right lower quadrant and into his right testicle. He denies any urinary symptoms. He states he has been getting flushed but has not had a documented fever. He also has right upper quadrant abdominal pain. He has not had any vomiting or diarrhea. He denies any other body aches. He is not having any weakness or numbness. The pain in his back radiates across into his lower abdomen and testicles but not into his buttocks or down his legs. He has not had any loss of bowel or bladder control. He denies any injury. He denies any chest pain or shortness of breath. He is in pain management and receives Tylenol with codeine every month. his last prescription was filled on 10/08/2024 Related Data Home Medications ?Medication ?Instructions ?Recorded ?Confirmed glipizide 5 mg-metformin 500 mg 1 tab PO BID 08/23/23 07/17/24 tablet lancets (Accu-Chek Fastclix Lancet 09/08/23 09/08/23 Drum) albuterol sulfate 90 mcg/actuation 2 puff inhalation Q6H PRN 06/01/24 07/17/24 aerosol inhaler shortness of breath or wheezing Previous Rx's ?Medication ?Instructions ?Recorded acetaminophen 300 mg-codeine 30 mg See Rx Instructions .Route 05/07/24 tablet .COMPLEX PRN pain #180 tabs doxycycline hyclate 100 mg capsule 100 mg PO BID 7 days #14 caps 07/18/24 prednisone 20 mg tablet 40 mg (2 x 20 mg) PO DAILY 5 days 07/18/24 #10 tabs acetaminophen 300 mg-codeine 30 mg See Rx Instructions .Route 09/09/24 tablet .COMPLEX PRN pain #180 tabs acetaminophen 300 mg-codeine 30 mg See Rx Instructions .Route 09/09/24 tablet .COMPLEX PRN pain #180 tabs Allergies Allergy/AdvReac Type Severity Reaction Status Date / Time fentanyl Allergy Intermediate Hives Verified 06/03/24 09:19 ofloxacin Allergy Intermediate HIVES Verified 05/18/24 07:19 olodaterol (From Stiolto Allergy Intermediate SHORTNESS Verified 05/18/24 07:19 Respimat) OF BREATH tiotropium (From Stiolto Allergy Intermediate SHORTNESS Verified 05/18/24 07:19 Respimat) OF BREATH zafirlukast Allergy Intermediate Hives Verified 05/18/24 07:19 Iodinated Contrast Media Allergy Unknown Unknown Verified 07/17/24 22:59 ibuprofen (From Motrin) AdvReac Mild Hives Verified 07/17/24 22:59 Opioid HPI Opioid Management Most Recent Opioid Data: Last Pain Scale 10 10/11/24 20:00 10/11/24 Review of Systems ROS Status of ROS 10 or more systems reviewed and unremarkable except as noted in history and below [facility] Medical History Melanoma ?C43.9 - Malignant melanoma of skin, unspecified (ICD-10) Tobacco user ?Z72.0 - Tobacco use (ICD-10) Type 2 diabetes mellitus with hyperglycemia ?E11.65 - Type 2 diabetes mellitus with hyperglycemia (ICD-10) Acute exacerbation of chronic obstructive pulmonary disease (COPD) ?J44.1 - Chronic obstructive pulmonary disease with (acute) exacerbation (ICD-10) Lumbar degenerative disc disease ?M51.36 - Other intervertebral disc degeneration, lumbar region (ICD-10) Influenza ?J11.1 - Influenza due to unidentified influenza virus with other respiratory manifestations (ICD-10) Acute bronchospasm ?J98.01 - Acute bronchospasm (ICD-10) Postoperative pain, acute, shoulder ?G89.18 - Other acute postprocedural pain (ICD-10) ?M25.519 - Pain in unspecified shoulder (ICD-10) Fever ?R50.9 - Fever, unspecified (ICD-10) Acute pain of right shoulder ?M25.511 - Pain in right shoulder (ICD-10) Rotator cuff arthropathy of right shoulder ?M12.811 - Other specific arthropathies, not elsewhere classified, right shoulder (ICD-10) Diabetes ?E11.9 - Type 2 diabetes mellitus without complications (ICD-10) COPD (chronic obstructive pulmonary disease) ?J44.9 - Chronic obstructive pulmonary disease, unspecified (ICD-10) Surgical History H/O colonoscopy ?Z98.890 - Other specified postprocedural states (ICD-10) History of carpal tunnel release ?Z98.890 - Other specified postprocedural states (ICD-10) H/O lumbosacral spine surgery ?Z98.890 - Other specified postprocedural states (ICD-10) S/P right rotator cuff repair ?Z98.890 - Other specified postprocedural states (ICD-10) Family History Other Family history of COPD (chronic obstructive pulmonary disease) Family history of cancer Family history of hypertension Social History Within the past year, how often did you have a drink containing alcohol: never Score interpretation: A score less than 4 is consistent with normal alcohol consumption. Smoking status: Current every day smoker Non-prescribed substance use: denies use Previous occupational history: retired Highest level of school completed/degree received: GED or equivalent Are you now , , , , never or living with a partner: In a typical week, how many times do you talk on the telephone with family, friends, or neighbors: 3 or more times per week How often do you get together with friends or relatives: 3 or more times per week How often do you attend confucianist or samaritan services: never Do you belong to any clubs or organizations such as confucianist groups unions, fraternal or athletic groups, or school groups: no Total score: 2 Score interpretation: A score of greater than or equal to 2 indicates the lowest level of social isolation. Little interest or pleasure in doing things: not at all Feeling down, depressed, or hopeless: not at all Feel stressed/tense/nervous/anxious/difficulty sleeping: not at all Do you think of yourself as: straight/heterosexual Gender Identity: male Exam Narrative Exam Narrative: Vital signs and Nursing Notes reviewed: Patient is afebrile with a normal pulse, blood pressure is elevated 164/89, he is not hypoxic with pulse ox of 98% on room air General: Awake, alert, oriented, nontoxic but somewhat uncomfortable appearing adult male, no respiratory distress HEENT: Normocephalic atraumatic, mucous membranes are moist and pink, eyes are clear, normal conjunctiva, vision is grossly intact Neck: Supple Chest: Lungs are clear to auscultation with good air entry, there is no wheezing rhonchi or rales appreciated no accessory muscle use, patient is speaking in complete sentences-no chest wall tenderness to palpation CVS: Regular rate and rhythm S1-S2, no murmurs rubs or gallops, pulses are brisk and equal bilaterally ABD: Soft, nondistended, tenderness to palpation in the right upper quadrant, the remainder of the abdominal exam is benign with no tenderness at McBurney's point, no pulsatile masses Extremities: Moving all extremities, no lower extremity tenderness or swelling noted, mild tenderness in the right mid to lower flank no bony midline vertebral tenderness or step-off Neuro: No focal deficits Skin: No rash, no petechia or purpura noted Constitutional Vital Signs, click to edit/add: Last Vital Signs Temp 98.0 F 10/11/24 19:27 Pulse 75 10/11/24 19:27 Resp 16 10/11/24 20:20 BP 140/84 10/11/24 20:20 Pulse Ox 98 10/11/24 19:27 O2 Del Method Room Air 10/11/24 19:27 Course Vital Signs Vital signs: Vital Signs Temperature 98.0 F 10/11/24 19:27 Pulse Rate 75 10/11/24 19:27 Respiratory Rate 18 10/11/24 19:27 Blood Pressure 164/89 H 10/11/24 19:27 Pulse Oximetry 98 10/11/24 19:27 Oxygen Delivery Method Room Air 10/11/24 19:27 Temperature 98.0 F 10/11/24 19:27 Pulse Rate 75 10/11/24 19:27 Respiratory Rate 16 10/11/24 20:20 Blood Pressure 140/84 10/11/24 20:20 Pulse Oximetry 98 10/11/24 19:27 Oxygen Delivery Method Room Air 10/11/24 19:27 MDM - Back Pain/Injury MDM Narrative Medical decision making narrative: This 64-year-old male with a history of kidney stones and chronic back pain who has had back surgery in the past presents for evaluation of 4 to 5 days of low back pain, right greater than left. He also has right upper quadrant abdominal pain. He denies any nausea or vomiting. He has not had any urinary symptoms. He was mildly tender in the right flank area and right upper quadrant. His blood pressure was elevated upon arrival. An IV was placed and he was medicated with IV fluids, 4 mg of morphine and Zofran. He had minimal relief of his pain from these medications was given IM Norflex. He has a normal white count and hemoglobin. Electrolytes are normal with the exception of an elevated glucose of 317. Urine is positive for glucose but negative for blood or signs of infection. CT scan of the abdomen pelvis shows constipation throughout the colon with mild left colon and sigmoid colon diverticulosis, enlarged prostate gland, possible right posterior bladder diverticulum, possible left bladder diverticulum, lobulated soft tissue in the posterior pelvis that could represent adenopathy or and/or components of the enlarged prostate cannot with degenerative disc disease in the lower lumbar spine levels, normal appendix was well-seen and there was no free fluid or air no abscess or hematoma. There was no notation of any kidney stones. The results of the CT scan were discussed with him and he was given a copy of the report. He states that he does see pain management here locally. He does not see a neurosurgeon. He did have 3 injections for his back pain in the past year and his insurance will not cover another 1 until April. Clinically I suspect that his symptoms are related to the degenerative disease in his lumbar region. He denies any recent injury. He has no neurologic symptoms associated with the back pain including weakness numbness, saddle anesthesia or bowel or bladder dysfunction. He will be given a Percocet and 2 Percocet to go. I explained to him that I cannot prescribe him narcotics since he is in pain management but will give him a prescription for Norflex to use for the next 10 days. Lab Data Attestation: I reviewed the patient's lab results. Labs: Lab Results 10/11/24 10/11/24 Range/Units 19:36 19:56 WBC 8.1 (4.0-11.0) 10^3/uL RBC 5.53 (4.70-6.10) 10^6/uL Hgb 16.6 (14.0-18.0) g/dL Hct 48.8 (42.0-54.0) % MCV 88.2 (80.0-94.0) fL MCH 30.0 (25.9-34.0) pg MCHC 34.0 (29.9-35.2) g/dL RDW 13.0 (11.0-15.0) % Plt Count 298 (150-450) 10^3/uL MPV 8.9 L (9.5-13.5) fL Neut % (Auto) 48.2 (43.0-75.0) % Lymph % (Auto) 39.0 (20.5-60.0) % [place] % (Auto) 9.6 (1.7-12.0) % Eos % (Auto) 2.5 (0.9-7.0) % Baso % (Auto) 0.5 (0.2-2.0) % Neut # (Auto) 3.9 (1.4-6.5) 10^3/uL Lymph # (Auto) 3.2 (1.2-3.8) 10^3/uL [place] # (Auto) 0.8 (0.3-0.8) 10^3/uL Eos # (Auto) 0.2 (0.0-0.7) 10^3/uL Baso # (Auto) 0.0 (0.0-0.1) 10^3/uL Abs Immat Gran (auto) 0.02 (0.00-0.03) 10^3/uL Imm/Tot Granulo (auto) 0.2 (0.0-0.5) % Sodium 136 (136-145) mmol/L Potassium 4.3 (3.5-5.1) mmol/L Chloride 102 (98-107) mmol/L Carbon Dioxide 28.4 (21.0-32.0) mmol/L Anion Gap 9.9 BUN 14.0 (7.0-18.0) mg/dL Creatinine 0.97 (0.70-1.30) mg/dL Est GFR ( Amer) >60 (>=60 mL/min/1.73m^2) Est GFR (Non-Af Amer) >60 (>=60 mL/min/1.73m^2) BUN/Creatinine Ratio 14.4 Glucose 317 H (74-106) mg/dL Calcium 9.1 (8.5-10.1) mg/dL Total Bilirubin 0.2 (0.2-1.0) mg/dL AST 13 L (15-37) U/L ALT 39 (16-63) U/L Alkaline Phosphatase 102 (46-116) U/L Total Protein 6.7 (6.4-8.2) g/dL Albumin 3.5 (3.4-5.0) g/dL Globulin 3.2 g/dL Albumin/Globulin Ratio 1.1 Urine Color Lt. yellow (YELLOW) Urine Clarity Clear (CLEAR) Urine pH 6.0 (5.0-9.0) Ur Specific [place] 1.015 (1.005-1.025) Urine Protein Negative (NEG/TRACE) mg/dL Urine Glucose (UA) >=1000 A (NEGATIVE) mg/dL Urine Ketones Negative (NEGATIVE) mg/dL Urine Occult Blood Negative (NEGATIVE) Urine Nitrite Negative (NEGATIVE) Urine Bilirubin Negative (NEGATIVE) Urine Urobilinogen 0.2 (0.2-1.0) EU/dL Ur Leukocyte Esterase Negative (NEGATIVE) Urine RBC 0-2 (0-2) #/HPF Urine WBC None seen (NONE SEEN) #/HPF Ur Squamous Epith Cells Few A (NONE/RARE) #/LPF Urine Crystals None seen (None Seen) #/HPF Urine Bacteria None seen (NONE SEEN) #/HPF Urine Casts None seen (NONE SEEN) #/LPF Urine Mucus None seen (NONE SEEN) Ur Culture Indicated? No Discharge Plan Discharge Chief Complaint: Back Pain/Injury Clinical Impression: Acute exacerbation of chronic low back pain, Degenerative joint disease (DJD) of lumbar spine, Hyperglycemia due to diabetes mellitus Patient Disposition: Home, Self-Care Time of Disposition Decision: 22:29 Condition: Good Prescriptions / Home Meds: No Action (DME) lancets [Accu-Chek Fastclix Lancet Drum] Misc MISCELLANEOUS prednisone 20 mg tablet 40 mg PO DAILY 5 Days Qty: 10 0RF doxycycline hyclate 100 mg capsule 100 mg PO BID 7 Days Qty: 14 0RF glipizide-metformin 5-500 mg tablet 1 tab PO BID acetaminophen-codeine 300-30 mg tablet See Rx Instructions .ROUTE .COMPLEX PRN (Reason: pain) Qty: 180 0RF Rx Instructions: 1-2 tabs 3 times daily as needed for pain albuterol sulfate 90 mcg/actuation HFA aerosol inhaler 2 puff INHALATION Q6H PRN (Reason: shortness of breath or wheezing) acetaminophen-codeine 300-30 mg tablet See Rx Instructions .ROUTE .COMPLEX PRN (Reason: pain) Qty: 180 0RF Rx Instructions: 1-2 TABS PO TID PRN #180 MUST LAST 30 DAYS acetaminophen-codeine 300-30 mg tablet See Rx Instructions .ROUTE .COMPLEX PRN (Reason: pain) Qty: 180 0RF Rx Instructions: 1-2 TABLETS PO TID PRN #180 MUST LAST 30 DAYS Print Language: [place] Referrals: Hannah Gallo MD [Primary Care Provider] - 1 week
[2024-10-11 19:48] LABS: Basophils Percent Auto 0.5 % (0.2-2.0); Eosinophils Absolute Auto 0.2 10^3/uL (0.0-0.7); Eosinophils Percent Auto 2.5 % (0.9-7.0); Hematocrit 48.8 % (42.0-54.0); Hemoglobin 16.6 g/dL (14.0-18.0); Immature Granulocytes Abs Auto 0.02 10^3/uL (0.00-0.03); Immature Granulocytes Pct Auto 0.2 % (0.0-0.5); Lymphocytes Absolute Auto 3.2 10^3/uL (1.2-3.8); Mean Corpuscular Volume 88.2 fL (80.0-94.0); Mean Platelet Volume 8.9 fL (9.5-13.5); Monocytes Absolute Auto 0.8 10^3/uL (0.3-0.8); Monocytes Percent Auto 9.6 % (1.7-12.0); Neutrophils Absolute Auto 3.9 10^3/uL (1.4-6.5); Neutrophils Percent Auto 48.2 % (43.0-75.0); Platelet Count 298 10^3/uL (150-450); Red Blood Count 5.53 10^6/uL (4.70-6.10); White Blood Count 8.1 10^3/uL (4.0-11.0)
[2024-10-11] MEDS: ONDANSETRON PF 4 MG/2 ML VIAL IV (19:50)
[2024-10-11] MEDS: MORPHINE SULFATE 4 MG/ML VIAL IV (19:50)
[2024-10-11] MEDS: 0.9 % SODIUM CHLORIDE 1,000 ML 1000 ML IV (19:54)
[2024-10-11 20:01] LABS: Bilirubin Urine NEGATIVE (NEGATIVE); Blood Urine NEGATIVE (NEGATIVE); Clarity Urine CLEAR (CLEAR); Color Urine LT. YELLOW (YELLOW); Glucose Urine UA >=1000 mg/dL (NEGATIVE); Ketones Urine NEGATIVE (NEGATIVE); Leukocyte Esterase Urine NEGATIVE (NEGATIVE); Nitrite Urine NEGATIVE (NEGATIVE); Protein Urine NEGATIVE (NEG/TRACE); Specific Gravity Urine 1.015 (1.005-1.025); Urobilinogen Urine 0.2 EU/dL (0.2-1.0)
[2024-10-11 20:03] LABS: Alanine Aminotransferase 39 U/L (16-63); Albumin Globulin Ratio 1.1; Albumin Level 3.5 g/dL (3.4-5.0); Alkaline Phosphatase 102 U/L (46-116); Anion Gap 9.9; Aspartate Amino Transferase 13 U/L (15-37); BUN Creatinine Ratio 14.4; Bilirubin Total 0.2 mg/dL (0.2-1.0); Calcium 9.1 mg/dL (8.5-10.1); Carbon Dioxide 28.4 mmol/L (21.0-32.0); Chloride 102 mmol/L (98-107); Estimated GFR (African America >60 (>=60 mL/min/1.73m^2); Estimated GFR (Non-African Ame >60 (>=60 mL/min/1.73m^2); Globulin 3.2 g/dL; Glucose 317 mg/dL (74-106); Potassium 4.3 mmol/L (3.5-5.1); Sodium 136 mmol/L (136-145); Total Protein 6.7 g/dL (6.4-8.2)
[2024-10-11 20:10] LABS: Bacteria Urine NONE SEEN #/HPF (NONE SEEN); Cast Seen? NONE SEEN #/LPF (NONE SEEN); Crystals Seen? None Seen #/HPF (None Seen); Mucus Urine NONE SEEN (NONE SEEN); RBC Urine 0-2 #/HPF (0-2); Squamous Epithelial Cell Urine FEW #/LPF (NONE/RARE); Urine Culture Indicated NO; WBC Urine NONE SEEN #/HPF (NONE SEEN)
[2024-10-11 20:20] VITALS: BP 140/84
[2024-10-11] MEDS: ORPHENADRINE 60 MG/ 2 ML VIAL IM (20:30)
--- NOTE | 2024-10-11 20:54 | PC.NURSE ---
Pt rates pain at a 6 and states this is tolerable.
[2024-10-11] MEDS: OXYCODONE HCL/ACETAMINOPHEN 5MG/325MG 1 TAB PO (23:06)
[2024-10-11] MEDS: OXYCODONE HCL/ACETAMINOPHEN 5MG/325MG 2 TAB PO (23:07)
== END 2024-10-11 23:14 | disposition home or self-care (01) ==
PROVIDERS: Emergency Provider Emergency Medicine; PCP Family Medicine
DX: M54.50 Low back pain, unspecified (principal); M51.369 Other intervertebral disc degeneration, lumbar region without mention of lumbar back pain or lower extremity pain; R10.31 Right lower quadrant pain; R10.11 Right upper quadrant pain; N50.811 Right testicular pain; N20.0 Calculus of kidney; E11.65 Type 2 diabetes mellitus with hyperglycemia; K59.00 Constipation, unspecified; K57.90 Diverticulosis of intestine, part unspecified, without perforation or abscess without bleeding; N40.0 Benign prostatic hyperplasia without lower urinary tract symptoms; N32.3 Diverticulum of bladder
CPT/HCPCS: 36415; 74176; 80053; 81001; 85025; 96372; 96374; 96375; 99285; J2270; J2360; J2405

== ENCOUNTER 2024-11-11 07:47 | Outpatient (OUT) | payer MEDICARE, SELFPAY ==
--- NOTE | 2024-11-11 08:05 | P.CN_ITS ---
Consult Note: HPI Data of Consult Patient: known to practice within the last 3 years Requesting Physician: Janneth Villalta NP Primary Care Provider: Hannah Gallo MD Consult Narrative Reason for consult: f/u Narrative: Nicholas Ziegler a pleasant 64 year old male presents for evaluation of chronic back pain, hx of previous laminectomy and multilevel spondylosis as well as stenosis at L4-5. pt has failed to benefit from >6 weeks of provider guided HEP, heat, ice, tylenol, and cannot take NSAIDs. new dx of barretts esophagus and hiatal hernia. cannot tolerate baclofen during the daytime, finds benefit at night and with tylenol PRN. denies falls or injury. pain today 7/10 aching stabbing increasing with standing walking, sitting in a hard chair, and sleep. painup to 10/10 with numbness tingling weakness of BLE. cc:: CC: Janneth Villalta NP Review of Systems ROS Status of ROS 10 or more systems reviewed and unremark able except as noted in history and below Musculoskeletal Reports: back pain and extremity pain PFSH PFSH Medical History Melanoma ?C43.9 - Malignant melanoma of skin, unspecified (ICD-10) Tobacco user ?Z72.0 - Tobacco use (ICD-10) Type 2 diabetes mellitus with hyperglycemia ?E11.65 - Type 2 diabetes mellitus with hyperglycemia (ICD-10) Acute exacerbation of chronic obstructive pulmonary disease (COPD) ?J44.1 - Chronic obstructive pulmonary disease with (acute) exacerbation (ICD -10) Lumbar degenerative disc disease ?M51.36 - Other intervertebral disc degeneration, lumbar region (ICD-10) Influenza ?J11.1 - Influenza due to unidentified influenza virus with other respiratory manifestations (ICD-10) Acute bronchospasm ?J98.01 - Acute bronchospasm (ICD-10) Postoperative pain, acute, shoulder ?G89.18 - Other acute postprocedural pain (ICD-10) ?M25.519 - Pain in unspecified shoulder (ICD-10) Fever ?R50.9 - Fever, unspecified (ICD-10) Acute pain of right shoulder ?M25.511 - Pain in right shoulder (ICD-10) Rotator cuff arthropathy of right shoulder ?M12.811 - Other specific arthropathies, not elsewhere classified, right shoulder (ICD-10) Diabetes ?E11.9 - Type 2 diabetes mellitus without complications (ICD-10) COPD (chronic obstructive pulmonary disease) ?J44.9 - Chronic obstructive pulmonary disease, unspecified (ICD-10) Surgical History H/O colonoscopy ?Z98.890 - Other specified postprocedural states (ICD-10) History of carpal tunnel release ?Z98.890 - Other specified postprocedural states (ICD-10) H/O lumbosacral spine surgery ?Z98.890 - Other specified postprocedural states (ICD-10) S/P right rotator cuff repair ?Z98.890 - Other specified postprocedural states (ICD-10) Family History Other Family history of COPD (chronic obstructive pulmonary disease) Family history of cancer Family history of hypertension Social History Within the past year, how often did you have a drink containing alcohol: never Score interpretation: A score less than 4 is consistent with normal alcohol consumption. Smoking status: Current every day smoker Non-prescribed substance use: denies use Previous occupational history: retired Highest level of school completed/degree received: GED or equivalent Are you now , , , , never or living with a partner: In a typical week, how many times do you talk on the telephone with family, friends, or neighbors: 3 or more times per week How often do you get together with friends or relatives: 3 or more times per week How often do you attend cheondoism or latter-day services: never Do you belong to any clubs or organizations such as cheondoism groups unions, fraternal or athletic groups, or school groups: no Total score: 2 Score interpretation: A score of greater than or equal to 2 indicates the lowest level of social isolation. Little interest or pleasure in doing things: not at all Feeling down, depressed, or hopeless: not at all Feel stressed/tense/nervous/anxious/difficulty sleeping: not at all Do you think of yourself as: straight/heterosexual Gender Identity: male Meds Home Medications and Allergies Home Medications ?Medication ?Instructions ?Recorded ?Confirmed ?Type glipizide 5 mg-metformin 500 mg 1 tab PO BID 08/23/23 07/17/24 History tablet lancets (Accu-Chek Fastclix Lancet 09/08/23 09/08/23 History Drum) acetaminophen 300 mg-codeine 30 mg See Rx Instructions .Route 05/07/24 07/17/24 Rx tablet .COMPLEX PRN pain #180 tabs albuterol sulfate 90 mcg/actuation 2 puff inhalation Q6H PRN 06/01/24 07/17/24 History aerosol inhaler shortness of breath or wheezing doxycycline hyclate 100 mg capsule 100 mg PO BID 7 days #14 caps 07/18/24 Rx prednisone 20 mg tablet 40 mg (2 x 20 mg) PO DAILY 5 days 07/18/24 Rx #10 tabs acetaminophen 300 mg-codeine 30 mg See Rx Instructions .Route 09/09/24 Rx tablet .COMPLEX PRN pain #180 tabs acetaminophen 300 mg-codeine 30 mg See Rx Instructions .Route 09/09/24 Rx tablet .COMPLEX PRN pain #180 tabs acetaminophen 300 mg-codeine 30 mg See Rx Instructions .Route 10/28/24 Rx tablet .COMPLEX PRN pain #180 tabs acetaminophen 300 mg-codeine 30 mg See Rx Instructions .Route 10/28/24 Rx tablet .COMPLEX PRN pain #180 tabs Allergies Allergy/AdvReac Type Severity Reaction Status Date / Time fentanyl Allergy Intermediate Hives Verified 06/03/24 09:19 ofloxacin Allergy Intermediate HIVES Verified 05/18/24 07:19 olodaterol (From Stiolto Allergy Intermediate SHORTNESS Verified 05/18/24 07:19 Respimat) OF BREATH tiotropium (From Stiolto Allergy Intermediate SHORTNESS Verified 05/18/24 07:19 Respimat) OF BREATH zafirlukast Allergy Intermediate Hives Verified 05/18/24 07:19 Iodinated Contrast Media Allergy Unknown Unknown Verified 07/17/24 22:59 ibuprofen (From Motrin) AdvReac Mild Hives Verified 07/17/24 22:59 Exam Constitutional Documenting provider has reviewed patient's vital signs: yes Common normals: no apparent distress, oriented x3, healthy appearing, alert and well nourished General appearance: cooperative HENVT Common normals: normocephalic, hearing grossly normal bilaterally and moist oral mucous membranes Head and scalp: normocephalic Eye Common normals: PERRL Pupil: PERRL Neck & C-Spine Common normals: full ROM General: normal visual inspection Chest Common normals: inspection of chest normal Respiratory Common normals: normal respiratory effort, no retractions and no use of accessory muscles Back & Pelvis Lumbar spine/lower back: ROM limited, pain with ROM, lumbar spinal tenderness, paraspinal muscle tenderness, paraspinal muscle spasm, straight leg raise positive right and straight leg raise positive left Other: decreased strength 4/5 in BLE decreased sensation to bilateral L4,5 dermatomal pattern Neuro Common normals: oriented x3, CN's II-XII intact bilaterally, moves all extremities, no focal motor deficits, no sensory deficits noted and deep tendon reflexes 2+ bilaterally Sensorium/orientation: alert Motor exam: no movement abnormalities noted Psych Common normals: mental status grossly normal, thought process normal, cooperative, affect normal, speech normal and activity/motor behavior normal Speech: normal speech Thought process: normal thought process Results Additional Findings Additional findings: If on a controlled substance or opioids, I have checked an [place]AR[place] report on this patient and there are no aberrancies noted in the prescribing history.??If on a controlled substance or opioid a drug screen was completed and reviewed within the last year, and if there has not been a drug screen completed we ordered one today to monitor higher risk, state monitored pain medication use. As part of providing excellent, safe, comprehensive care, the following was completed at our patient's visit: 1. A medication reconciliation and review to ensure accurate knowledge of current/active medications, including asking our patients to inform us about any [id number] medications or herbal remedies/nutritional supple ments/alternative remedies. 2. A review to specifically ensure our patients have had annual screening for screening for depression, screening for tobacco use, and screening for unhealthy alcohol use. For concerning screenings had a discussion with the patient, provided patient education, and recommended follow-up with primary care provider when appropriate. If patient noted with a risk of falling, they received education on strength, gait, and balance training to prevent future risk of falling. Portions of this note may have been carried over from the previous visit and updated as appropriate. Please note this office utilizes paper charting in addition to the electronic medical record. A list of current medications, vitals, and PMH is available there as the clinical staff outside of myself do not have access to [employer] charting during the clinic day operations. As part of providing quality comprehensive care the current medications, vitals, and PMH were reviewed in the paper chart. Assessment and Plan Assessment and Plan (1) Lumbar stenosis with neurogenic claudication: Assessment and Plan: The patient has had over 3 months of moderate to severe low back and bilateral leg pain with functional impairment and inadequate response to conservative care including NSAIDS (unless there are contraindication such as concurrent blood thinners), multiple oral or topical pain medications, and home exercise program/physical therapy.? Patient has completed >6 weeks of guided home exercise program and/or formal physical therapy program without relief of their symptoms.? The Oswestry Disability Index was completed, and the patient scored a 44%.? The patient noted the following:?? moderate to severe pain with ADLs, sitting, standing, walking, sleep, social life and travel (2) Failed back syndrome: (3) Sacroiliitis: (4) Chronic prescription opiate use: Assessment and Plan: I feel these medications are improving the patient's quality of life and allow them to tolerate activities of daily living as well as participate in recreational activity.? The patient does not report intolerable side effects. The patient is NOT opioid naive and non-pharmacologic and non-opioid treatment has failed to significantly relieve the patient's pain and improve functionality. The patient has a diagnosis that is related to a somatic or visceral pain etiology. ? ?? I reviewed with the patient the potential risks and side effects with the use of? opioid medications including but not limited to respiratory depression,? sedation, and even . Within the last 12 months I have verified the patient has access to naloxone should? these effects occur. The patient was advised to let? their family know they had Naloxone in case they would need to administer? the medication. I advised the patient to avoid the use of any other? sedation substances including alcohol, THC, and benzodiazepines while? taking opioid medications due to the risk of compounding side effects and? detrimental outcomes. within the last 12 months I have reviewed the [employer], pain treatment agreement and urine drug screen.? ?? A drug screen was completed within the last year, and no aberrancies were noted regarding their use of controlled substances. The patient understands they are subject to the terms and conditions of the pain contract that they have signed. ? ?? I have checked an OARRS report on this patient today and there are no aberrancies noted in the prescribing history.? (5) Lumbar spondylosis: (6) Tobacco abuse: Assessment and Plan: smoking cessation discussed and encouraged f/u with PCP for further conversation (7) Barretts esophagus: Assessment and Plan: encouraged smoking cessation, sleeping with head elevated, avoiding alcohol, advised to f/u with PCP regarding medications as he cannot tolerate omeprazole avoid NSAIDs Plan repeat bilateral L4-5 TFESI under fluoroscopy, per pt previous MAGAN provided >50% improvement greater than 3 months but has since worn off dc baclofen start flexeril 5-10mg TID PRN pain/spasms continue HEP as tolerated continue tylenol #3 TID PRN moderate to severe pain, risks vs benefits reviewed f/u 2 weeks after MAGAN
== END 2024-11-11 07:48 | disposition home or self-care (01) ==
LOC: PM 07:47
PROVIDERS: PCP Family Medicine; Visit Provider Nurse Practitioner
DX: M48.062 Spinal stenosis, lumbar region with neurogenic claudication (principal); M96.1 Postlaminectomy syndrome, not elsewhere classified; M46.1 Sacroiliitis, not elsewhere classified; Z79.891 Long term (current) use of opiate analgesic; M47.816 Spondylosis without myelopathy or radiculopathy, lumbar region; Z72.0 Tobacco use; K22.70 Barrett's esophagus without dysplasia
CPT/HCPCS: G0463

== ENCOUNTER 2024-11-23 06:45 | Day surgery (SDC) | payer MEDICARE, SELFPAY ==
--- OUTSIDE RECORDS SUMMARY | 2024-11-23 06:49 | XMS_ITS | CCD ---
Author Organization [facility] Care Team Providers Care Baker Bread Name Role Phone Kesha Trujillo Unavailable Chepe Harriet Unavailable Jeremy Magallanes Unavailable SONA, DR JEREMY Jovel Admitting Unavailable MAGALLANES, DR JEREMY Jovel Attending Unavailable MAGALLANES, DR JEREMY Jovel Primary Care Unavailable MAGALLANES, DR JEREMY Jovel Consulting Unavailable TAVERAS, RUBI Consulting Unavailable OLEXA, KESHA Admitting Unavailable OLEXA, KESHA Attending Unavailable MAGALLANES, DR JEREMY Jovel Primary Care Unavailable DELMAR, DR BARBIE Goldberg Consulting Unavailable OLEXA, KESHA [...] Consulting Unavailable JEREMY MAGALLANES Primary Care Physician [phone] Jeremy Magallanes MD Primary Care Provider [phone] POCOS, BARBIE Tellez Attending Unavailable POCOS, BARBIE Tellez Referring Unavailable POCOS, BARBIE Tellez Attending Unavailable MALATHI SANCHEZ Attending Unavailable JEREMY MAGALLANES Referring Unavailable POCOS, BARBIE Tellez Attending Unavailable Magallanes MD, Jeremy E Unavailable PRIYANKA VAZ Attending Unavailable JEREMY MAGALLANES Referring Unavailable JEREMY MAGALLANES Primary Care Unavailable MD Jeremy Magallanes Primary Care Provider DO Bill Henry Attending Provider Jeremy Magallanes Primary Care Unavailable Bill Henry Attending Unavailable Bill Henry Admitting Unavailable Giedraitis , Andrius Vytautchela Attending Unavailable Giedraitis , Andrius Vytautchela Attending Unavailable Giedraitis , Andrius Vytautchela Attending Unavailable Giedraitis , Andrius Vytautchela Attending Unavailable Giedraitis , Andrius Vytautchela Attending Unavailable Giedraitis , Andrius Vytautas Attending Unavailable Giedraitis , Andrius Ruth Attending Unavailable Jeremy Magallanes MD Primary Care Provider [phone] Ligia DIOP Attending Unavailable Ligia DIOP Admitting Unavailable CHIKISLigia OLIVA Attending Unavailable CHIKISLigia OLIVA Attending Unavailable Ligia DIOP Admitting Unavailable Allergies Allergy Classification Reported Allergen(s) Allergy Type Date of Onset Reaction(s) Facility (20 sources) Ibuprofen Drug Allergy [facility] [employer] Other (20 sources) olodaterol / tiotropium Drug Allergy shortness of breath [facility] [employer] Other (20 sources) CT Scan dye Propensity to adverse reactions [facility] [employer] Other (10 sources) Ibuprofen; Translations: [IBUPROFEN] Drug Allergy 08-19-18 80 [facility] Repository (2 sources) Iodine (And Iodine Containting Drugs) Drug allergy (disorder) 09-07-19 16 [facility] Repository (1 source) NSAIDs Drug allergy (disorder) [facility] (20 sources) fentaNYL Drug Allergy 12-05-19 24 Unknown, [facility] (12 sources) Ibuprofen Drug Allergy 01-15-20 15 Rash, [facility] (20 sources) Ofloxacin Drug Allergy 12-05-19 24 Unknown, [facility] (3 sources) zafirlukast Drug Allergy 01-15-20 15 Unknown [employer] Other (20 sources) Zafirlukast *ANTIASTHMATIC AND BRONCHODILATOR AGEN Propensity to adverse reactions Unknown [employer] Other (20 sources) Ibuprofen & Diet Manage Prod *ANALGESICS - ANTI-IN Propensity to adverse reactions Unknown [employer] Other (3 sources) Allergies Reconciled Propensity to adverse reactions Unknown [employer] Other (20 sources) Iodinated contrast media (substance) Drug allergy 06-03-20 19 Rash, [facility] [employer] Other (3 sources) patient allergy list reviewed by nurse or physicia Propensity to adverse reactions 10-05-19 16 Comment:Done [employer] Other (11 sources) olodaterol Drug Allergy 12-05-19 24 shortness of breath [facility] (11 sources) tiotropium Drug Allergy 12-05-19 24 shortness of breath [facility] (8 sources) Iodinated Contrast Media; Translations: [IODINATED CONTRAST MEDIA] Allergy to substance 06-03-20 [facility] (7 sources) Ibuprofen & Diet Manage Prod * Allergy to substance 12-04-19 [facility] Comment on above: Free Text Allergy: I buprofen & Diet Manage Prod *ANALGESICS - ANTI-IN (7 sources) Zafirlukast *ANTIASTHMATIC AND Allergy to substance 12-04-19 [facility] Comment on above: Free Text Allergy: Z afirlukast *ANTIASTHMATIC AND BRONCHODILATOR AGEN (3 sources) DULoxetine Drug Allergy 04-07-20 GI intolerance [facility] Medications Current Medications Medication Drug Class(es) Dates Sig (Normalized) Sig (Original) acetaminophen 300 mg / codeine phosphate 30 mg oral tablet (20 sources) Opioid Agonist Start: 12-05-2023 End: 12-06-2023 take 1 tablet by mouth every eight hours as needed for pain Acetaminophen-Cod eine 300-30 mg tablet Active 1 TAB PO Every 8 hours as needed for pain 90 December 06, 2023 12:56pm Start: 10-03-2023 End: 12-05-2023 take 1 tablet by mouth every six hours as needed for pain Acetaminophen-Codeine 300-30 mg tablet Discontinued 1 TAB PO Every 6 hours as needed for pain 120 October 09, 2023 8:50am November 04, 2023 3:38pm [employer] tablet as needed Orally every 6 [...] as needed Orally every 6 hrs Active [id number] 200 actuat albuterol 0.09 mg/actuat metered dose inhaler (20 sources) beta2-Adrenergic Agonist Start: 05-01-2024 End: 10-09-2024 take 1 puff(s) by inhalation every four hours as needed for wheezing Albuterol Sulfate 90 mcg/actuation HFA aerosol inhaler Active 2 PUFF INHALATION Every 4 hours as needed for shortness of breath or wheezing 8.5 October 09, 2024 3:35pm Start: 06-25-2023 End: 04-07-2024 take 2 puff(s) [...] 12 hrs for 10 day(s) Oct, Active cetirizine hydrochloride 10 mg oral capsule (1 source) Histamine-1 Receptor Antagonist Start: 10-15-2024 take 1 capsule by mouth twice daily as needed Cetirizine (Zyrtec) 10 mg capsule Active 10 MG PO Twice daily as needed October 15, 2024 12:00am gabapentin 800 mg oral tablet (1 source) Anti-epileptic Agent Start: 08-31-2023 gabapentin (Neurontin) 800 MG tablet glipiZIDE 5 mg / metFORMIN hydrochloride 500 mg oral tablet (20 sources) Biguanide, Sulfonylurea Start: 07-19-2023 take 2 tablets by mouth twice daily Glipizide-Metformin 5-500 mg tablet Active TAB PO December 03, 2023 11:00pm [employer] tab Orally bid; Note: Source Status: Start; Refills: 1; Qty: 360 Tablet; Provider: Sona Young ( ) Start: 07-19-2023 take 2 tablets by mo uth in the morning glipiZIDE-metFORMIN (Metaglip) 5-500 MG tablet Take 2 tablets by mouth in the morning and 2 tablets before bedtime. 07/19/2023 Active take 1 tablet by desirae th twice daily glipiZIDE-metFORMIN HCl 5-500 MG 1 tablet with a meal Orally bid for 30 days Active methylPREDNISolone 4 mg oral tablet (20 sources) Corticosteroid Start: 10-15-2024 take 1 tablet by mouth once Methylprednisolone (Medrol (Boris)) 4 mg tablets,dose pack Active 0 PO per package directions October 15, 2024 12:00am PO PER PKG DIR for 6 days Start: 12-06-2023 End: 12-17-2023 Methylprednisolone 4 mg tabl ets,dose pack Discontinued 0 PO per package directions December 05, 2023 11:00pm December 17, 2023 8:20am PO PER PKG DIR for 6 days Start: 12-06-2023 End: 12-17-2023 Methylprednisolone Discontin ued [...] with dinner for 6 days May, Not-Taking omeprazole 40 mg delayed release oral capsule (7 sources) Proton Pump Inhibitor Start: 07-23-2024 End: 09-18-2024 take 1 capsule by mouth once daily Omeprazole 40 mg capsule,delayed release(DR/EC) Active 40 MG PO Daily September 18, 2024 3:28pm Start: 07-23-2024 End: 07-23-2024 take 1 capsule by mouth twice daily Omeprazole 40 mg capsule,delayed release(DR/EC) Discontinued 40 MG PO Twice daily July 23, 2024 12:00am July 23, 2024 10:55am Start: 05-27-2024 take 1 capsule by [facility] in the morning omeprazole (PriLOSEC) 40 mg capsule Indications: Gastroesophageal reflux disease, unspecified whether esophagitis present Take 1 capsule (40 mg total) by mouth in the morning. 60 capsule 05/27/2024 Active ondansetron 4 mg disintegrating oral tablet (8 sources) Serotonin-3 Receptor Antagonist Start: 04-27-2024 ondansetron ODT (ZOFRAN ODT) 4 mg disintegrating tablet Dissolve 1 tablet (4 mg total) on tongue once. 04/27/2024 Active Start: 04-27-2024 End: 09-18-2024 take 1 tablet by mouth every eight hours Ondansetron 4 mg tablet,disintegrating Active 4 MG PO Q8H September 18, 2024 3:28pm tiZANidine 4 mg oral tablet (5 sources) [...] Active Start: 07-23-2023 take 1 tablet by desriae th every six hours HYDROcodone-Acetaminophen 10-325 MG [...] days May, Active Start: 2023 HYDROcodone-ac etaminophen (Floyd) 10-325 MG tablet Start: 2023 take 1 tablet by desirae th every six hours HYDROcodone-Acetaminophen 10-325 MG 1 tablet as needed Orally every 6 hrs for 7 days May, Active atorvastatin 20 mg oral tablet (20 sources) HMG-CoA Reductase Inhibitor Start: 10-23-2023 End: 12-17-2023 take 1 tablet by mouth once daily Atorvastatin 20 mg tablet Discontinued 0 .ROUTE .COMPLEX October 23, 2023 2:27pm December 17, 2023 8:20am TAKE 1 TABLET BY MOUTH EVERY DAY FOR 30 DAYS Start: 10-23-2023 End: 10-23-2023 take 1 tablet by mouth once daily Atorvastatin 20 mg tablet Discontinued 20 MG PO Daily October 23, 2023 12:00am October 23, 2023 2:27pm Start: 07-26-2023 atorvastatin ( Lipitor) 20 MG tablet azithromycin 250 mg oral tablet (20 sources) Macrolide Antimicrobial Start: 06-17-2024 End: 07-23-2024 Azithromycin 250 mg tablet Discontinued 0 PO .COMPLEX June 16, 2024 11:00pm July 23, 2024 10:29am For 250 mg dose pack: take 500 mg today (day 1), then 250 mg for 4 days (days 2-5) PO Start: 06-17-2024 Azithromycin A ctive 0 PO .COMPLEX June 17, 2024 12:00am For 250 mg dose pack: take 500 mg today (day 1), then 250 mg for 4 days (days 2-5) PO Start: 12-20-2023 End: 03-03-2024 Azithromycin 250 mg tablet D iscontinued 0 PO .COMPLEX December 19, 2023 11:00pm March 03, 2024 11:09am For 250 mg dose pack: take 500 [...] 30 mg oral tablet (5 sources) Uncompetitive U-jvpyyb-D-aspartate Receptor Antagonist, Sigma-1 Agonist Start: 05-26-2021 take 1 tablet by mouth every eight hours [place] DMT 30-30 MG 1 tablet Orally every 8 hours for 7 days May, Not-Taking DULoxetine 60 mg delayed release oral capsule (20 sources) Serotonin and Norepinephrine Reuptake Inhibitor Start: 02-19-2024 End: 03-18-2024 take 1 capsule by mouth once daily Duloxetine 60 mg capsule,delayed release(DR/EC) Discontinued 0 .ROUTE .COMPLEX February 19, 2024 7:39am March 18, 2024 8:00am TAKE 1 CAPSULE BY MOUTH EVERY DAY FOR 90 DAYS Start: 11-12-2023 End: 04-07-2024 take 1 capsule by mouth once daily Duloxetine 60 mg capsule,delayed release(DR/EC) Discontinued 60 MG PO Daily February 18, 2024 11:00pm February 19, 2024 7:39am Start: 02-20-2023 take 1 capsule by [facility] every twenty-four hours Cymbalta 60 MG 1 capsule Orally Once a day for 30 days Feb, Active Nicotine (Nicoderm Cq) 14 mg/24 hr patch 24 hour (5 sources) Start: 03-03-2024 End: 03-18-2024 apply 1 dose transdermal route once daily, then apply 1 dose transdermal route every twenty-four hours Nicotine (Nicoderm Cq) 14 mg/24 hr patch 24 hour Discontinued 1 PATCH TRANSDERML Daily March 02, 2024 11:00pm March 18, 2024 8:00am Start: 03-03-2024 End: 03-18-2024 apply 1 dose [...] TRANSDERML Daily March 03, 2024 12:00am predniSONE 20 mg oral tablet (17 sources) Start: 06-17-2024 End: 10-15-2024 take 1 tablet by mouth twice daily Prednisone 20 mg tablet Discontinued 20 MG PO Twice daily August 28, 2024 1:19pm October 15, 2024 9:03am Start: 04-30-2023 predniSONE 10 MG 4 tabs [...] DAILY X 3 DAYS for 9 Active triamcinolone acetonide 40 mg/ml injectable suspension (20 sources) Corticosteroid Start: 12-12-2021 Kenalog-40 Nov, 40 mg Start: 12-12-2021 Kenalog -40 mg Nov, 40 mg Problems Active Problems Problem Classification Problem Date Documented Da te Episodic/Chronic Abdominal hernia (3 sources) Hiatal hernia; Translations: [Diaphragmatic hernia without [...] Chronic Chronic obstructive pulmonary disease and bronchiectasis (13 sources) Bronchitis, not specified as acute or chronic; Translations: [Bronchitis] Onset: 1 Resolved: 1 Episodic Diabetes mellitus with complications (20 sources) Hyperglycemia due to type 2 diabetes mellitus; Translations: [Type 2 diabetes mellitus with hyperglycemia] Onset: 9 Chronic Diabetes mellitus without complication (18 sources) Type 2 diabetes mellitus without complications; Translations: [Type 2 diabetes mellitus without complication] Onset: 7 12-05-2023 Chronic Diseases of mouth; excluding dental (5 sources) Abscess of submandibular region; Translations: [Cellulitis and abscess of mouth] 03-04-2024 Episodic Diseases of white blood cells (20 sources) Leukocytosis; Translations: [Other elevated white blood cell count] Chronic Disorders of teeth and jaw (3 sources) Jaw pain; Translations: [Jaw pain] Episodic Esophageal disorders (20 sources) Gastroesophageal reflux disease without esophagitis; Translations: [Gastro-esophageal reflux disease without esophagitis] Onset: 4 03-26-2024 Chronic Esophageal disorders (6 sources) Disorder of esophagus; Translations: [Disease of esophagus, unspecified] 03-18-2024 Episodic Genitourinary symptoms and ill-defined conditions (3 sources) Blood in urine; Translations: [Hematuria, unspecified] Episodic Hyperplasia of prostate (2 sources) Large prostate ; Translations: [Benign prostatic hyperplasia without lower urinary tract symptoms] 10-15-2024 Chronic Lymphadenitis (6 sources) Acute lymphadenitis; Translations: [Acute lymphadenitis, unspecified] Onset: 8 07-24-2024 Episodic Malaise and fatigue (3 sources) Fatigue; [...] [Other specified disorders of bladder] Chronic Other diseases of bladder and urethra (1 source) Diverticulum of bladder; Translations: [Diverticulum of bladder] 10-15-2024 Chronic Other diseases of bladder and urethra (1 source) Diverticulum of bladder; Translations: [Diverticulum of bladder] 10-15-2024 Chronic Other gastrointestinal disorders (1 source) Other fecal abnormalities Episodic Other gastrointestinal disorders (3 sources) Abnormal feces; Translations: [Other fecal abnormalities] Episodic Other gastrointestinal disorders (1 source) Dysphagia, unspecified; Translations: [Dysphagia, unspecified] Onset: 4 Episodic Other liver diseases (20 sources) High enzyme level in serum; Translations: [Abnormal levels of other serum enzymes] Episodic Other liver diseases (6 sources) Liver mass; Translations: [Hepatomegaly, not elsewhere [...] right shoulder Episodic Other non-traumatic joint disorders (11 sources) Joint pain; Translations: [Pain in unspecified joint] Onset: 4 12-05-2023 Episodic Other non-traumatic joint disorders (3 sources) Pain in unspecified joint; Translations: [Pain in joint, site unspecified] 12-05-2023 Episodic Other non-traumatic joint disorders (6 sources) Hip pain; Translations: [Pain in right [...] unspecified] Onset: 8 Chronic Other skin disorders (8 sources) Mass of submandibular region; Translations: [Localized swelling, mass and lump, head] Onset: 4 03-18-2024 Episodic Other skin disorders (3 sources) Localized swelling, mass and lump, head; [...] anus and rectum] Onset: 06-18-2016 05-27-2024 Episodic Nonmalignant breast conditions (3 sources) Pain of breast; Translations: [Mastodynia] Onset: 10-05-2015 Episodic Other aftercare (1 source) Other fci (current) drug therapy; Translations: [OTH [facility] CURRENT DRUG THERAPY] Onset: 12-29-2021 Episodic Other [...] Test Name Value Interpretation Reference Range Facility CHEMISTRYOrdered By: Sonia Brandt on 11-04-2024 HbA1c (Bld) [Mass fraction] 9.5 % High <=5.9% [facility] ChemAutoSS [id number] 11-04-2024 HbA1c (Bld) [Mass fraction] 9.5 % High <=5.9 [facility] Comment on above: Performed By: #### [id number] #### [facility] [address] [place] [address] Basophils Auto (Bld) [#/Vol] on 10-11-2024 Basophils (Bld) [#/Vol] Automated basophil count 0.0-0.1 [facility] Basophils/100 WBC Auto (Bld) on 10-11-2024 Basophils/100 WBC (Bld) Automated basophil % 0.2-2.0 [facility] Eosinophils/100 WBC Auto (Bl d)on 10-11-2024 Eosinophils/100 WBC (Bld) Automated eosinophil % 0.9-7.0 [facility] Erythrocyte distribution wid th Auto (RBC) [Ratio]on 10-11-2024 Erythrocyte distribution width (RBC) [Ratio] Erythrocyte distribution width [Ratio] by Automated count 11.0-15.0 [facility] Estimated glomerular filtrat ion rate (GFR) non- Americanon 10-11-2024 GFR/1.73 sq M.predicted among non-blacks MDRD (S/P/Bld) [Vol rate/Area] Estimated glomerular filtration rate (GFR) non- >=60 mL/min/1.73m 2 [facility] Globulin Calc (S) [Mass/Vol] on 10-11-2024 Globulin (S) [Mass/Vol] Serum globulin measurement by calculation (mass/volume) [facility] Hematocrit Auto (Bld) [Volum e fraction]on 10-11-2024 Hematocrit (Bld) [Volume fraction] Hematocrit [Volume Fraction] of Blood by Automated count 42.0-54.0 [facility] Hemoglobin [Mass/volume] in Bloodon 10-11-2024 Hemoglobin (Bld) [Mass/Vol] Hemoglobin [Mass/volume] in Blood 14.0-18.0 [facility] Laboratory - Chemistry and C hemistry - challengeon 10-11-2024 Albumin [Mass/Vol] 3.5 g/dL 3.4-5.0 [facility] ALP [Catalytic activity/Vol] 102 U/L 46-116 [facility] ALT [Catalytic activity/Vol] 39 U/L 16-63 [facility] AST [Catalytic activity/Vol] 13 U/L Low 15-37 [facility] Bilirubin [Mass/Vol] 0.2 mg/dL 0.2-1.0 [facility] Calcium [Mass/Vol] 9.1 mg/dL 8.5-10.1 [facility] Chloride [Moles/Vol] 102 mmol/L 98-107 [facility] CO2 [Moles/Vol] 28.4 mmol/L 21.0-32.0 [facility] Creatinine [Mass/Vol] 0.97 mg/dL 0.70-1.[address] [facility] GFR/1.73 sq M.predicted MDRD (S/P/Bld) [Vol rate/Area] mL/min/{1.73_m2} >=60 mL/min/1.73m 2 [facility] Glucose [Mass/Vol] 317 mg/dL High 74-106 [facility] Potassium [Moles/Vol] 4.3 mmol/L 3.5-5.[address] [facility] Protein [Mass/Vol] 6.7 g/dL 6.4-8.2 [facility] Sodium [Moles/Vol] 136 mmol/L 136-145 [facility] Urea nitrogen [Mass/Vol] 14.0 mg/dL 7.0-18.0 [facility] Urea nitrogen/Creatinine [Mass ratio] 14.4 mg/mg [facility] Laboratory - Hematology and Cell countson 10-11-2024 Immature granulocytes/100 WBC (Bld) 0.2 % 0.0-0.5 [facility] Leukocytes [#/volume] correc jean claude for nucleated erythrocytes in Blood by Automated counon 10-11-2024 WBC corrected for nucl RBC Auto (Bld) [#/Vol] Leukocytes [#/volume] corrected for nucleated erythrocytes in Blood by Automated coun 4.0-11.0 [facility] Lymphocytes Auto (Bld) [#/Vo l]on 10-11-2024 Lymphocytes (Bld) [#/Vol] Lymphocytes [#/volume] in Blood by Automated count 1.2-3.8 [facility] Lymphocytes/100 WBC Auto (Bl d)on 10-11-2024 Lymphocytes/100 WBC (Bld) Lymphocytes/100 leukocytes in Blood by Automated count 20.5-60.0 [facility] MCH Auto (RBC) [Entitic mass ]on 10-11-2024 MCH (RBC) [Entitic mass] MCH [Entitic mass] by Automated count 25.9-34.0 [facility] MCHC Auto (RBC) [Mass/Vol]on 10-11-2024 MCHC (RBC) [Mass/Vol] MCHC [Mass/volume] by Automated count 29.9-35.2 [facility] MCV Auto (RBC) [Entitic vol] on 10-11-2024 MCV (RBC) [Entitic vol] MCV [Entitic volume] by Automated count 80.0-94.0 [facility] Monocytes Auto (Bld) [#/Vol] on 10-11-2024 Monocytes (Bld) [#/Vol] Automated blood monocyte count 0.3-0.8 [facility] Monocytes/100 WBC Auto (Bld) on 10-11-2024 Monocytes/100 WBC (Bld) Automated monocyte % 1.7-12.0 [facility] Neutrophils Auto (Bld) [#/Vo l]on 10-11-2024 Neutrophils (Bld) [#/Vol] Neutrophils [#/volume] in Blood by Automated count 1.4-6.5 [facility] Neutrophils/100 WBC Auto (Bl d)on 10-11-2024 Neutrophils/100 WBC (Bld) Automated neutrophil % 43.0-75.0 [facility] No Panel Informationon 10-11 Eosinophils # (Auto) 0.2 10 3/uL 0.0-0.[address] [facility] Immature Granulocyte # (Auto) 0.02 10 3/uL 0.00-0.03 [facility] Platelet mean volume Auto (B ld) [Entitic vol]on 10-11-2024 Platelet mean volume (Bld) [Entitic vol] Platelet mean volume [Entitic volume] in Blood by Automated count Low 9.5-13.5 [facility] Platelets Auto (Bld) [#/Vol] on 10-11-2024 Platelets (Bld) [#/Vol] Platelets [#/volume] in Blood by Automated count 150-450 [facility] RBC Auto (Bld) [#/Vol]on RBC (Bld) [#/Vol] Erythrocytes [#/volume] in Blood by Automated count 4.70-6.10 [facility] Serum or plasma albumin/glob ulin mass ratioon 10-11-2024 Albumin/Globulin [Mass ratio] Serum or plasma albumin/globulin mass ratio [facility] Serum or plasma anion gap de terminationon 10-11-2024 Anion gap [Moles/Vol] Serum or plasma anion gap determination [facility] Estimated glomerular filtrat ion rate (GFR) non- Americanon 08-26-2024 GFR/1.73 sq M.predicted among non-blacks MDRD (S/P/Bld) [Vol rate/Area] Estimated glomerular filtration rate (GFR) non- >=60 mL/min/1.73m 2 [facility] Laboratory - Chemistry and C hemistry - challengeon 08-26-2024 Creatinine [Mass/Vol] 1.02 mg/dL 0.70-1.[address] [facility] GFR/1.73 sq M.predicted MDRD (S/P/Bld) [Vol rate/Area] mL/min/{1.73_m2} >=60 mL/min/1.73m 2 [facility] EGDon 06-03-2024 [facility] No Panel InformationOrdered By: Rosalia Shea on 06-03-2024 [facility] No Panel InformationOrdered By: Bill Henry on 06-03-2024 Miscellaneous Pathology Test See comment [facility] Comment on above: See report. Scanned copy available in EMR. No Panel Informationon 06-03 Helicobacter pylori Urease Test Negative [facility] Pathology Request for Lab Co rpon 06-03-2024 Pathology Request for Lab Raymond Normal [facility] Comment on above: Order Comment: PATHO LOGY GI SPECIMEN Result Comment: See report. Scanned copy available in EMR. PERFORMED BY: [place] [address] PATHOLOGIST AGENT BASED MODELER JON PONCE M.D. Performed By: #### P ATH TO [facility] #### [address] [facility]-14-20[id number] NICHOLAS CRAIG ([id number]) 1960 M Date Time Provider Department 05/14/24 AMEYA MERAZ [id number] During your visit today, we recorded the following information about you: Keily Martines 05/14/2024 1:11 PM Signed Referral was sent from [facility] for new consult with Dr Meraz Please see below and advise Vivian Morley 05/15/2024 11:54 AM Addendum Consult from Dr. 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] Problem List As Of Date: 05/14/2024 (None) Encounter Status:Closed by VIVIAN MORLEY on 05/21/24 [facility] Basophils Auto (Bld) [#/Vol] on 02-27-2024 Basophils (Bld) [#/Vol] 0.1 10 3/uL 0.0-0.1 [facility] Basophils/100 WBC Auto (Bld) on 02-27-2024 Basophils/100 WBC (Bld) 0.5 % 0.2-2.0 [facility] Eosinophils/100 WBC Auto (Bl d)on 02-27-2024 Eosinophils/100 WBC (Bld) 2.5 % 0.9-7.0 [facility] [facility] Erythrocyte distribution wid th Auto (RBC) [Ratio]on 02-27-2024 Erythrocyte distribution width (RBC) [Ratio] 13.5 % 11.0-15.0 [facility] Estimated glomerular filtrat ion rate (GFR) non- Americanon 02-27-2024 GFR/1.73 sq M.predicted among non-blacks MDRD (S/P/Bld) [Vol rate/Area] mL/min/{1.73_m2} >=60 [facility] Hematocrit Auto (Bld) [Volum e fraction]on 02-27-2024 Hematocrit (Bld) [Volume fraction] 47.1 % 42.0-54.0 [facility] Hemoglobin [Mass/volume] in Bloodon 02-27-2024 Hemoglobin (Bld) [Mass/Vol] 15.5 g/dL 14.0-18.0 [facility] Laboratory - Chemistry and C hemistry - challengeon 02-27-2024 Calcium [Mass/Vol] 8.9 mg/dL 8.5-10.1 [facility] Chloride [Moles/Vol] 98 mmol/L 98-107 [facility] CO2 [Moles/Vol] 28.1 mmol/L 21.0-32.0 [facility] Creatinine [Mass/Vol] 0.86 mg/dL 0.70-1.[address] [facility] GFR/1.73 sq M.predicted MDRD (S/P/Bld) [Vol rate/Area] mL/min/{1.73_m2} >=60 [facility] Glucose [Mass/Vol] 237 mg/dL High 74-106 [facility] Lactate [Moles/Vol] 1.3 mmol/L 0.4-2.0 [facility] Potassium [Moles/Vol] 4.4 mmol/L 3.5-5.[address] [facility] Sodium [Moles/Vol] 130 mmol/L Low 136-145 [facility] Urea nitrogen [Mass/Vol] 21.0 mg/dL High 7.0-18.0 [facility] Urea nitrogen/Creatinine [Mass ratio] 24.4 mg/mg [facility] Laboratory - Hematology and Cell countson 02-27-2024 Immature granulocytes/100 WBC (Bld) 0.3 % 0.0-0.5 [facility] Leukocytes [#/volume] correc jean claude for nucleated erythrocytes in Blood by Automated counon 02-27-2024 WBC corrected for nucl RBC Auto (Bld) [#/Vol] 9.3 10 3/uL 4.0-11.0 [facility] Lymphocytes Auto (Bld) [#/Vo l]on 02-27-2024 Lymphocytes (Bld) [#/Vol] 2.4 10 3/uL 1.2-3.8 [facility] Lymphocytes/100 WBC Auto (Bl d)on 02-27-2024 Lymphocytes/100 WBC (Bld) 25.5 % 20.5-60.0 [facility] MCH Auto (RBC) [Entitic mass ]on 02-27-2024 MCH (RBC) [Entitic mass] 29.1 pg 25.9-34.0 [facility] MCHC Auto (RBC) [Mass/Vol]on 02-27-2024 MCHC (RBC) [Mass/Vol] 32.9 g/dL 29.9-35.[address] [facility] MCV Auto (RBC) [Entitic vol] on 02-27-2024 MCV (RBC) [Entitic vol] 88.5 fL 80.0-94.0 [facility] Monocytes Auto (Bld) [#/Vol] on 02-27-2024 Monocytes (Bld) [#/Vol] 1.1 10 3/uL High 0.3-0.8 [facility] Monocytes/100 WBC Auto (Bld) on 02-27-2024 Monocytes/100 WBC (Bld) 12.0 % 1.7-12.0 [facility] Neutrophils Auto (Bld) [#/Vo l]on 02-27-2024 Neutrophils (Bld) [#/Vol] 5.5 10 3/uL 1.4-6.5 [facility] Neutrophils/100 WBC Auto (Bl d)on 02-27-2024 Neutrophils/100 WBC (Bld) 59.2 % 43.0-75.0 [facility] No Panel Informationon 02-26 Eosinophils # (Auto) 0.2 10 3/uL 0.0-0.[address] [facility] Immature Granulocyte # (Auto) 0.03 10 3/uL 0.00-0.03 [facility] Platelet mean volume Auto (B ld) [Entitic vol]on 02-27-2024 Platelet mean volume (Bld) [Entitic vol] 8.8 fL Low 9.5-13.5 [facility] Platelets Auto (Bld) [#/Vol] on 02-27-2024 Platelets (Bld) [#/Vol] 288 10 3/uL 150-450 [facility] RBC Auto (Bld) [#/Vol]on RBC (Bld) [#/Vol] 5.32 10 6/uL 4.70-6.10 [facility] Serum or plasma anion gap de terminationon 02-27-2024 Anion gap [Moles/Vol] 8.3 mmol/L [facility] Basophils Auto (Bld) [#/Vol] on 12-05-2023 Basophils (Bld) [#/Vol] 0.1 10 3/uL 0.0-0.1 [facility] Basophils/100 WBC Auto (Bld) on 12-05-2023 Basophils/100 WBC (Bld) 0.9 % 0.2-2.0 [facility] Eosinophils/100 WBC Auto (Bl d)on 12-05-2023 Eosinophils/100 WBC (Bld) 2.7 % 0.9-7.0 [facility] Erythrocyte distribution wid th Auto (RBC) [Ratio]on 12-05-2023 Erythrocyte distribution width (RBC) [Ratio] 13.1 % 11.0-15.0 [facility] Estimated glomerular filtrat ion rate (GFR) non- Americanon 12-05-2023 GFR/1.73 sq M.predicted among non-blacks MDRD (S/P/Bld) [Vol rate/Area] mL/min/{1.73_m2} >=60 [facility] Glucose mean value [Mass/vol ume] in Blood Estimated from glycated hemoglobinon 12-05-2023 Average glucose Estimated from glycated hemoglobin (Bld) [Mass/Vol] 171 mg/dL [facility] Hematocrit Auto (Bld) [Volum e fraction]on 12-05-2023 Hematocrit (Bld) [Volume fraction] 48.9 % 42.0-54.0 [facility] Hemoglobin [Mass/volume] in Bloodon 12-05-2023 Hemoglobin (Bld) [Mass/Vol] 16.0 g/dL 14.0-18.0 [facility] Laboratory - Chemistry and C hemistry - challengeon 12-05-2023 Calcium [Mass/Vol] 9.7 mg/dL 8.5-10.1 [facility] Chloride [Moles/Vol] 102 mmol/L 98-107 [facility] CO2 [Moles/Vol] 27.6 mmol/L 21.0-32.0 [facility] Creatinine [Mass/Vol] 1.01 mg/dL 0.70-1.[address] [facility] GFR/1.73 sq M.predicted MDRD (S/P/Bld) [Vol rate/Area] mL/min/{1.73_m2} >=60 [facility] Glucose [Mass/Vol] 156 mg/dL High 74-106 [facility] Potassium [Moles/Vol] 4.4 mmol/L 3.5-5.[address] [facility] Sodium [Moles/Vol] 139 mmol/L 136-145 [facility] Urea nitrogen [Mass/Vol] 13.0 mg/dL 7.0-18.0 [facility] Urea nitrogen/Creatinine [Mass ratio] 12.9 mg/mg [facility] Laboratory - Hematology and Cell countson 12-05-2023 ESR (Bld) [Velocity] 17 mm/h <=20 [facility] HbA1c (Bld) [Mass fraction] 7.6 % High 4.5-6.2 [facility] Comment on above: ADA RECOMMENDED LIMI T 4.0 - 6.0ADA THERAPEUTIC TARGET < 7.0ACTION SUGGESTED> 7.0 Immature granulocytes/100 WBC (Bld) 0.4 % 0.0-0.5 [facility] Leukocytes [#/volume] correc jean claude for nucleated erythrocytes in Blood by Automated counon 12-05-2023 WBC corrected for nucl RBC Auto (Bld) [#/Vol] 7.7 10 3/uL 4.0-11.0 [facility] Lymphocytes Auto (Bld) [#/Vo l]on 12-05-2023 Lymphocytes (Bld) [#/Vol] 2.4 10 3/uL 1.2-3.8 [facility] Lymphocytes/100 WBC Auto (Bl d)on 12-05-2023 Lymphocytes/100 WBC (Bld) 31.2 % 20.5-60.0 [facility] MCH Auto (RBC) [Entitic mass ]on 12-05-2023 MCH (RBC) [Entitic mass] 28.5 pg 25.9-34.0 [facility] MCHC Auto (RBC) [Mass/Vol]on 12-05-2023 MCHC (RBC) [Mass/Vol] 32.7 g/dL 29.9-35.[address] [facility] MCV Auto (RBC) [Entitic vol] on 12-05-2023 MCV (RBC) [Entitic vol] 87.0 fL 80.0-94.0 [facility] Monocytes Auto (Bld) [#/Vol] on 12-05-2023 Monocytes (Bld) [#/Vol] 0.7 10 3/uL 0.3-0.8 [facility] Monocytes/100 WBC Auto (Bld) on 12-05-2023 Monocytes/100 WBC (Bld) 9.5 % 1.7-12.0 [facility] Neutrophils Auto (Bld) [#/Vo l]on 12-05-2023 Neutrophils (Bld) [#/Vol] 4.2 10 3/uL 1.4-6.5 [facility] Neutrophils/100 WBC Auto (Bl d)on 12-05-2023 Neutrophils/100 WBC (Bld) 55.3 % 43.0-75.0 [facility] No Panel Informationon 12-04 Eosinophils # (Auto) 0.2 10 3/uL 0.0-0.[address] [facility] Immature Granulocyte # (Auto) 0.03 10 3/uL 0.00-0.03 [facility] Platelet mean volume Auto (B ld) [Entitic vol]on 12-05-2023 Platelet mean volume (Bld) [Entitic vol] 8.6 fL Low 9.5-13.5 [facility] Platelets Auto (Bld) [#/Vol] on 12-05-2023 Platelets (Bld) [#/Vol] 330 10 3/uL 150-450 [facility] RBC Auto (Bld) [#/Vol]on RBC (Bld) [#/Vol] 5.62 10 6/uL 4.70-6.10 [facility] Serum or plasma anion gap de terminationon 12-05-2023 Anion gap [Moles/Vol] 13.8 mmol/L [facility] Magnesiumon 07-02-2023 Magnesium [Mass/Vol] 2.1529771 mg/dL Normal 1.8- 2.4 mg/dL [facility] Other Magnesium see note [facility] Other XR CHEST 2 Von 11-24-2022 XR CHEST [...] by: RUBI TAVERAS Date: 2022-11-24 17:17 Normal [facility] CT LUNG CANCER SCREENINGon 1 [...] in 12 months. Electronically authenticated by: YEISON YOSEF Date: 2022-07-20 07:18 Normal [facility] CBC AUTO DIFFon 06-07-2022 BASO # 0.1 103/ul Normal 0.0-0.1 [facility] Comment on above: Performed By: #### C BC #### [facility] [address] [address] [address] Eran Chacon Basophils/100 WBC (Bld) 0.6 % Normal 0.2-2.0 [facility] Comment on above: Performed By: #### C BC #### [facility] [address] [address] [address] Eran Chacon EO # 0.3 103/ul Normal 0.0-0.7 [facility] Comment on above: Performed By: #### C BC #### [facility] [address] [address] [address] Eran Chacon Eosinophils/100 WBC (Bld) 3.3 % Normal 0.9-7.0 [facility] Comment on above: Performed By: #### C BC #### [facility] [address] [address] [address] Eran Chacon Erythrocyte distribution width (RBC) [Ratio] 12.9 % Normal 11.0-15.0 [facility] Comment on above: Performed By: #### C BC #### [facility] [address] [address] [address] Eran Chacon Hematocrit (Bld) [Volume fraction] 47.7 % Normal 42.0-54.0 [facility] Comment on above: Performed By: #### C BC #### [facility] [address] [address] [address] Eran Chacon Hemoglobin (Bld) [Mass/Vol] 15.9 g/dL Normal 14.0-18.0 [facility] Comment on above: Performed By: #### C BC #### [facility] [address] [address] [address] Eran Chacon IG # 0.02 10e3/ul Normal 0.00-0.03 [facility] Comment on above: Performed By: #### C BC #### [facility] [address] [place] [address] Dr. Eran Chacon IG % 0.2 % Normal 0.0-0.5 [facility] Comment on above: Performed By: #### C BC #### [facility] [address] [place] [address] Dr. Eran Chacon LYMPH # 3.4 103/ul Normal 1.2-3.8 [facility] Comment on above: Performed By: #### C BC #### [facility] [address] [place] [address] Dr. Eran Chacon Lymphocytes/100 WBC (Bld) 34.5 % Normal 20.5-60.0 [facility] Comment on above: Performed By: #### C BC #### [facility] [address] [place] [address] Dr. Eran Chacon MANUAL DIFF REQ NO Normal [facility] Comment on above: Performed By: #### C BC #### [facility] [address] [place] [address] Dr. Eran Chacon MCH (RBC) [Entitic mass] 29.6 pg Normal 25.9-34.0 [facility] Comment on above: Performed By: #### C BC #### [facility] [address] [place] [address] Dr. Eran Chacon MCHC (RBC) [Mass/Vol] 33.3 g/dL Normal 29.9-35.2 [facility] Comment on above: Performed By: #### C BC #### [facility] [address] [place] [address] Dr. Eran Chacon MCV (RBC) [Entitic vol] 88.8 fL Normal 80.0-94.0 [facility] Comment on above: Performed By: #### C BC #### [facility] [address] [place] [address] Dr. Eran Chacon MONO # 0.9 103/ul Critically high 0.3-0.8 [facility] Comment on above: Performed By: #### C BC #### [facility] [address] [place] [address] Dr. Eran Chacon Monocytes/100 WBC (Bld) 9.3 % Normal 1.7-12.0 [facility] Comment on above: Performed By: #### C BC #### [facility] [address] [address] [address] Eran Chacon NEUT # 5.2 103/ul Normal 1.4-6.5 [facility] Comment on above: Performed By: #### C BC #### [facility] [address] [place] [address] Dr. Eran Chacon Neutrophils/100 WBC (Bld) 52.1 % Normal 43.0-75.0 [facility] Comment on above: Performed By: #### C BC #### [facility] [address] [place] [address] Dr. Eran Chacon Platelet mean volume (Bld) [Entitic vol] 8.8 fL Critically low 9.5-13.5 [facility] Comment on above: Performed By: #### C BC #### [facility] [address] [place] [address] Dr. Eran Chacon PLT 287 103/ul Normal 150-450 [facility] Comment on above: Performed By: #### C BC #### [facility] [address] [place] [address] Dr. Eran Chacon RBC 5.37 106/ul Normal 4.70-6.10 [facility] Comment on above: Performed By: #### C BC #### [facility] [address] [place] [address] Dr. Eran Chacon WBC 9.9 103/ul Normal 4.0-11.0 [facility] Comment on above: Performed By: #### C BC #### [facility] [address] [place] [address] Dr. Eran Chacon ER URINE PROFILEon 2 Bilirubin Ql (U) Negative Normal NEGATIVE [facility] Comment on above: Performed By: #### E HANNA SHER #### [facility] [address] [place] [address] Dr. Eran Chacon Clarity (U) CLEAR Normal CLEAR [facility] Comment on above: Performed By: #### Med SHER UMICRO #### [facility] [address] [place] [address] Dr. Eran Chacon Color (U) YELLOW Normal YELLOW [facility] Comment on above: Performed By: #### Med SHER UMICRO #### [facility] [address] [place] [address] Dr. Eran GATES A micrscopic examination will be performed if indicated. Normal [facility] Comment on above: Performed By: #### Med SHER UMICRO #### [facility] [address] [place] [address] Dr. Eran Chacon Glucose Ql (U) 500 mg/dl Abnormal NEGATIVE [facility] Comment on above: Performed By: #### Med SHER UMICRO #### [facility] [address] [place] [address] Dr. Eran Chacon Hemoglobin Ql (U) TRACE-INTACT Abnormal NEGATIVE [facility] Comment on above: Performed By: #### Med SHER UMICRO #### [facility] [address] [place] [address] Dr. Eran Chacon Ketones Ql (U) Negative Normal NEGATIVE [facility] Comment on above: Performed By: #### Med SHER UMICRO #### [facility] [address] [place] [address] Dr. Eran Chacon LEUKOCYTES Negative Normal NEGATIVE [facility] Comment on above: Performed By: #### Med SHER UMICRO #### [facility] [address] [place] [address] Dr. Eran Chacon Nitrite Ql (U) Negative Normal NEGATIVE [facility] Comment on above: Performed By: #### Med SHER UMICRO #### [facility] [address] [place] [address] Dr. Eran Chacon pH (U) 6.0 [pH] Normal 5-9 [facility] Comment on above: Performed By: #### BISHNU BATESRO #### [facility] [address] [place] [address] Dr. Eran Chacon SPEC GRAVITY 1.025 Normal 1.005-<=1.02 5 [facility] Comment on above: Performed By: #### BISHNU BATESRO #### [facility] [address] [place] [address] Dr. Eran Chacon UA PROTEIN Negative Normal NEGATIVE/ TRACE [facility] Comment on above: Performed By: #### ERMELINDA BATESICRO #### [facility] [address] [place] [address] Dr. Eran Chacon UR MICRO IND INDICATED Normal [facility] Comment on above: Performed By: #### BISHNU BATESRO #### [facility] [address] [place] [address] Dr. Eran Chacon Urobilinogen Qn (U) 0.2 {Aureliano'U}/dL Normal 0.2 - 1. 0 [facility] Comment on above: Performed By: #### BISHNU BATESRO #### [facility] [address] [place] [address] Dr. Eran Chacon PROF 14(COMP METB)on 022 Albumin [Mass/Vol] 4.0 g/dL Normal 3.4-5.0 [facility] Comment on above: Performed By: #### C MP #### [facility] [address] [place] [address] Dr. Eran Chacon Albumin/Globulin [Mass ratio] 1.2 {ratio} Normal [facility] Comment on above: Performed By: #### C MP #### [facility] [address] [place] [address] Dr. Eran Chacon ALP [Catalytic activity/Vol] 104 U/L Normal 46-116 [facility] Comment on above: Performed By: #### C MP #### [facility] [address] [place] [address] Dr. Eran Chacon ALT [Catalytic activity/Vol] 28 U/L Normal 16-63 [facility] Comment on above: Performed By: #### C MP #### [facility] [address] [address] [address] Eran Chacon Anion gap [Moles/Vol] 7.2 mmol/L Normal [facility] Comment on above: Performed By: #### C MP #### [facility] [address] [address] [address] Eran Chacon AST [Catalytic activity/Vol] 14 U/L Critically low 15-37 [facility] Comment on above: Performed By: #### C MP #### [facility] [address] [address] [address] Eran Chacon Bilirubin [Mass/Vol] 0.4 mg/dL Normal 0.2-1.0 [facility] Comment on above: Performed By: #### C MP #### [facility] [address] [address] [address] Eran Chacon Calcium [Mass/Vol] 9.0 mg/dL Normal 8.5-10.1 [facility] Comment on above: Performed By: #### C MP #### [facility] [address] [address] [address] Eran Chacon Chloride [Moles/Vol] 103 mmol/L Normal 98-107 [facility] Comment on above: Performed By: #### C MP #### [facility] [address] [address] [address] Eran Chacon CO2 [Moles/Vol] 30.0 mmol/L Normal 21.0-32.0 [facility] Comment on above: Performed By: #### C MP #### [facility] [address] [address] [address] Eran Chacon Creatinine [Mass/Vol] 0.85 mg/dL Normal 0.70-1.30 [facility] Comment on above: Performed By: #### C MP #### [facility] [address] [address] [address] Eran Chacon EGFR-AF CROATIAN >60 Normal >=60 [facility] Comment on above: Performed By: #### C MP #### [facility] [address] [place] [address] Dr. Eran Chacon EGFR-NON AF CROATIAN >60 Normal >=60 [facility] Comment on above: Performed By: #### C MP #### [facility] [address] [address] [address] Eran Chacon Globulin (S) [Mass/Vol] 3.3 g/dL Normal [facility] Comment on above: Performed By: #### C MP #### [facility] [address] [address] [address] Eran Chacon Glucose [Mass/Vol] 165 mg/dL Critically high 74-106 [facility] Comment on above: Performed By: #### C MP #### [facility] [address] [place] [address] Dr. Eran Chacon Potassium [Moles/Vol] 4.2 mmol/L Normal 3.5-5.1 [facility] Comment on above: Performed By: #### C MP #### [facility] [address] [place] [address] Dr. Eran Chacon Protein [Mass/Vol] 7.3 g/dL Normal 6.4-8.2 [facility] Comment on above: Performed By: #### C MP #### [facility] [address] [place] [address] Dr. Eran Chacon Sodium [Moles/Vol] 136 mmol/L Normal 136-145 [facility] Comment on above: Performed By: #### C MP #### [facility] [address] [place] [address] Dr. Eran Chacon Urea nitrogen [Mass/Vol] 10.0 mg/dL Normal 7.0-18.0 [facility] Comment on above: Performed By: #### C MP #### [facility] [address] [place] [address] Dr. Eran Chacon Urea nitrogen/Creatinine [Mass ratio] 11.8 mg/mg Normal [facility] Comment on above: Performed By: #### C MP #### [facility] [address] [place] [address] Dr. Eran Chacon URINE MICROSCOPIC ONLYon BACTERIA NONE SEEN Normal NONE SEEN [facility] Comment on above: Performed By: #### E NIKKY UMICRO #### [facility] [address] [place] [address] Dr. Eran Chacon Bacteria identified Cx Nom (U) NOT INDICATED Normal [facility] Comment on above: Performed By: #### E RUR, UMICRO #### [facility] [address] [place] [address] Dr. Eran Chacon CAST NONE SEEN Normal NONE SEEN [facility] Comment on above: Performed By: #### E RUR, UMICRO #### [facility] [address] [place] [address] Dr. Eran Chacon Crystals LM Nom (Urine sed) NONE SEEN Normal NONE SEEN [facility] Comment on above: Performed By: #### E RUR, UMICRO #### [facility] [address] [place] [address] Dr. Eran Chacon Epithelial cells LM Ql (Urine sed) RARE Normal NONE SEEN /RARE [facility] Comment on above: Performed By: #### Med SHER UMICRO #### [facility] [address] [place] [address] Dr. Eran Chacon MUCOUS NONE SEEN Normal NONE SEEN [facility] Comment on above: Performed By: #### Med SHER, UMICRO #### [facility] [address] [place] [address] Dr. Eran Chacon RBC 0-2 Normal 0-2 [facility] Comment on above: Performed By: #### Med SHER UMICRO #### [facility] [address] [place] [address] Dr. Eran Chacon WBC 2-5 Abnormal NONE SEEN [facility] Comment on above: Performed By: #### Med SHER, UMICRO #### [facility] [address] [place] [address] Dr. Eran Chacon MRI SHOULDER LT WO [...] by: YEISON NAVAS Date: 2022-02-02 17:09 Normal [facility] Vital Signs Date Time Vital Sign Value Performing Clinician Facility 10-15-2024 08:56-0500 Body height 175.26 cm [facility] 10-15-2024 08:56-0500 Body mass index (BMI) [Ratio] 34.5 kg/m2 [facility] 10-15-2024 08:56-0500 Body temperature 98 [degF] [facility] 10-15-2024 08:56-0500 Body weight 106.14 kg [facility] 10-15-2024 08:56-0500 Diastolic blood pressure 81 mm[Hg] [facility] 10-15-2024 08:56-0500 Heart rate 76 /min [facility] 10-15-2024 08:56-0500 Systolic blood pressure 136 mm[Hg] [facility] 07-23-2024 10:21-0500 Body height 175.26 cm [facility] 07-23-2024 10:21-0500 Body mass index (BMI) [Ratio] 34.2 kg/m2 [facility] 07-23-2024 10:21-0500 Body weight 105.23 kg [facility] 07-23-2024 10:21-0500 Diastolic blood pressure 75 mm[Hg] [facility] 07-23-2024 10:21-0500 Heart rate 73 /min [facility] 07-23-2024 10:21-0500 SaO2% (BldA) [Mass fraction] 97 % [facility] 07-23-2024 10:21-0500 Systolic blood pressure 133 mm[Hg] [facility] 06-17-2024 09:13-0400 Body height 175.26 cm MD Jeremy Magallanes Work Phone: [facility] 06-17-2024 09:13-0400 Body mass index (BMI) [Ratio] 33.5 kg/m2 MD Jeremy Magallanes Work Phone: [facility] 06-17-2024 09:13-0400 Body temperature 98.1 [degF] MD Jeremy Magallanes Work Phone: [facility] 06-17-2024 09:13-0400 Body weight 102.96 kg MD Jeremy Magallanes Work Phone: [facility] 06-17-2024 09:13-0400 Diastolic blood pressure 83 mm[Hg] MD Jeremy Magallanes Work Phone: [facility] 06-17-2024 09:13-0400 Heart rate 79 /min MD Jeremy Magallanes Work Phone: [facility] 06-17-2024 09:13-0400 Systolic blood pressure 149 mm[Hg] MD Jeremy Magallanes Work Phone: [facility] 05-27-2024 14:56-0400 Body height 175.3 cm Priyanka Vaz INSTRUMENTATION CONTROLS ENGINEER-SENIOR MANUFACTURING TEST ENGINEER Work Phone: [facility] 05-27-2024 14:56-0400 Body mass index (BMI) [Ratio] 33.97 kg/m2 Priyanka Vaz INSTRUMENTATION CONTROLS ENGINEER-SENIOR MANUFACTURING TEST ENGINEER Work Phone: [facility] 05-27-2024 14:56-0400 Body weight 104.33 kg Priyanka Vaz INSTRUMENTATION CONTROLS ENGINEER-SENIOR MANUFACTURING TEST ENGINEER Work Phone: [facility] 04-07-2024 10:04-0400 Body height 180.3 cm Malathi Sanchez MD Work Phone: [facility] 04-07-2024 10:04-0400 Body mass index (BMI) [Ratio] 32.78 kg/m2 Malathi Sanchez MD Work Phone: [facility] 04-07-2024 10:04-0400 Body weight 106.59 kg Malathi Sanchez MD Work Phone: [facility] 04-07-2024 10:04-0400 Diastolic blood pressure 88 mm[Hg] Malathi Sanchez MD Work Phone: [facility] 04-07-2024 10:04-0400 Systolic blood pressure 184 mm[Hg] Malathi Sanchez MD Work Phone: [facility] 03-18-2024 08:46-0400 Body height 175.26 cm [facility] 03-18-2024 08:46-0400 Body mass index (BMI) [Ratio] 34.4 kg/m2 [facility] 03-18-2024 08:46-0400 Body weight 105.68 kg [facility] 03-18-2024 08:46-0400 Diastolic blood pressure 80 mm[Hg] [facility] 03-18-2024 08:46-0400 Heart rate 72 /min [facility] 03-18-2024 08:46-0400 Systolic blood pressure 130 mm[Hg] [facility] 03-03-2024 11:54-0400 Body height 175.26 cm [facility] 03-03-2024 11:54-0400 Body mass index (BMI) [Ratio] 34.7 kg/m2 [facility] 03-03-2024 11:54-0400 Body weight 106.59 kg [facility] 03-03-2024 11:54-0400 Diastolic blood pressure 81 mm[Hg] [facility] 03-03-2024 11:54-0400 Heart rate 69 /min [facility] 03-03-2024 11:54-0400 Systolic blood pressure 129 mm[Hg] [facility] 12-17-2023 08:54-0400 Body height 175.26 cm [facility] 12-17-2023 08:54-0400 Body mass index (BMI) [Ratio] 35.2 kg/m2 [facility] 12-17-2023 08:54-0400 Body weight 108.4 kg [facility] 12-17-2023 08:54-0400 Diastolic blood pressure 76 mm[Hg] [facility] 12-17-2023 08:54-0400 Heart rate 76 /min [facility] 12-17-2023 08:54-0400 Systolic blood pressure 154 mm[Hg] [facility] 12-05-2023 08:52-0400 Body height 175.26 cm [facility] 12-05-2023 08:52-0400 Body mass index (BMI) [Ratio] 35 kg/m2 [facility] 12-05-2023 08:52-0400 Body weight 107.67 kg [facility] 12-05-2023 08:52-0400 Diastolic blood pressure 78 mm[Hg] [facility] 12-05-2023 08:52-0400 Heart rate 69 /min [facility] 12-05-2023 08:52-0400 Systolic blood pressure 147 mm[Hg] [facility] 09-13-2023 13:30-0500 Body height 175.26 cm Jeremy Magallanes Other [facility] 09-13-2023 13:30-0500 Body mass index (BMI) [Ratio] 33.22 kg/m2 Jeremy Magallanes Other [facility] [employer] Other 09-13-2023 13:30-0500 Body temperature 98.4 [degF] Jeremy Magallanes Other [facility] [employer] Other 09-13-2023 13:30-0500 Body weight 102.06 kg Jeremy Magallanes Other [facility] [employer] Other 09-13-2023 13:30-0500 Body weight 102.05 kg [facility] 09-13-2023 13:30-0500 Diastolic blood pressure 80 mm[Hg] Jeremy Magallanes Other [facility] 09-13-2023 13:30-0500 SaO2% (BldA) [Mass fraction] 93 % Jeremy Magallanes Other [facility] [employer] Other 09-13-2023 13:30-0500 Systolic blood pressure 118 mm[Hg] Jeremy Magallanes Other [facility] 08-13-2023 10:30-0500 Body height 175.26 cm Jeremy Magallanes Other [facility] [employer] Other 08-13-2023 10:30-0500 Body mass index (BMI) [Ratio] 33.9 kg/m2 Jeremy Magallanes Other [facility] [employer] Other 08-13-2023 10:30-0500 Body weight 104.15 kg Jeremy Magallanes Other [employer] Other 08-13-2023 10:30-0500 Diastolic blood pressure 78 mm[Hg] Jeremy Magallanes Other [employer] Other 08-13-2023 10:30-0500 Systolic blood pressure 124 mm[Hg] Jeremy Magallanes Other [employer] Other 06-25-2023 08:45-0500 Body height 175.26 cm Jeremy Magallanes Other [employer] Other 06-25-2023 08:45-0500 Body mass index (BMI) [Ratio] 33.37 kg/m2 Jeremy Magallanes Other [employer] Other 06-25-2023 08:45-0500 Body temperature 96.5 [degF] Jeremy Magallanes Other [employer] Other 06-25-2023 08:45-0500 Body weight 102.51 kg Jeremy Magallanes Other [employer] Other 06-25-2023 08:45-0500 Diastolic blood pressure 85 mm[Hg] Jeremy Magallanes Other [employer] Other 06-25-2023 08:45-0500 Systolic blood pressure 149 mm[Hg] Jeremy Magallanes Other [employer] Other 05-28-2023 10:45-0400 Body height 175.26 cm Jeremy Magallanes Other [employer] Other 05-28-2023 10:45-0400 Body mass index (BMI) [Ratio] 33.52 kg/m2 Jeremy Magallanes Other [employer] Other 05-28-2023 10:45-0400 Body weight 102.97 kg Jeremy Magallanes Other [employer] Other 05-28-2023 10:45-0400 Diastolic blood pressure 82 mm[Hg] Jeremy Magallanes Other [employer] Other 05-28-2023 10:45-0400 Systolic blood pressure 147 mm[Hg] Jeremy Magallanes Other [employer] Other 2023 08:45-0400 Body height 175.26 cm Jeremy Magallanes Other [employer] Other 2023 08:45-0400 Body mass index (BMI) [Ratio] 33.52 kg/m2 Jeremy Magallanes Other [employer] Other 2023 08:45-0400 Body weight 102.97 kg Jeremy Magallanes Other [employer] Other 2023 08:45-0400 Diastolic blood pressure 85 mm[Hg] Jeremy Magallanes Other [employer] Other 2023 08:45-0400 Systolic blood pressure 156 mm[Hg] Jeremy Magallanes Other [employer] Other 04-30-2023 09:45-0400 Body height 175.26 cm Jeremy Magallanes Other [employer] Other 04-30-2023 09:45-0400 Body mass index (BMI) [Ratio] 34.32 kg/m2 Jeremy Magallanes Other [employer] Other 04-30-2023 09:45-0400 Body temperature 96.2 [degF] Jeremy Magallanes Other [employer] Other 04-30-2023 09:45-0400 Body weight 105.42 kg Jeremy Magallanes Other [employer] Other 04-30-2023 09:45-0400 Diastolic blood pressure 78 mm[Hg] Jeremy Magallanes Other [employer] Other 04-30-2023 09:45-0400 Respiratory rate 16 /min Jeremy Magallanes Other [employer] Other 04-30-2023 09:45-0400 Systolic blood pressure 146 mm[Hg] Jeremy Magallanes Other [employer] Other 02-20-2023 09:15-0400 Body height 175.26 cm Jeremy Magallanes Other [employer] Other 02-20-2023 09:15-0400 Body mass index (BMI) [Ratio] 33.46 kg/m2 Jeremy Magallanes Other [employer] Other 02-20-2023 09:15-0400 Body weight 102.79 kg Jeremy Magallanes Other [employer] Other 02-20-2023 09:15-0400 Diastolic blood pressure 77 mm[Hg] Jeremy Magallanes Other [employer] Other 02-20-2023 09:15-0400 Systolic blood pressure 131 mm[Hg] Jeremy Magallanes Other [employer] Other 01-17-2023 08:45-0400 Body height 175.26 cm Jeremy Magallanes Other [employer] Other 01-17-2023 08:45-0400 Body mass index (BMI) [Ratio] 33.37 kg/m2 Jeremy Magallanes Other [employer] Other 01-17-2023 08:45-0400 Body weight 102.51 kg Jeremy Magallanes Other [employer] Other 01-17-2023 08:45-0400 Diastolic blood pressure 79 mm[Hg] Jeremy Magallanes Other [employer] Other 01-17-2023 08:45-0400 Systolic blood pressure 128 mm[Hg] Jeremy Magallanes Other [employer] Other 11-23-2022 09:30-0400 Body height 175.26 cm Jeremy Magallanes Other [employer] Other 11-23-2022 09:30-0400 Body mass index (BMI) [Ratio] 33.96 kg/m2 Jeremy Magallanes Other [employer] Other 11-23-2022 09:30-0400 Body weight 104.33 kg Jeremy Magallanes Other [employer] Other 11-23-2022 09:30-0400 Diastolic blood pressure 72 mm[Hg] Jeremy Maglalanes Other [employer] Other 11-23-2022 09:30-0400 Systolic blood pressure 122 mm[Hg] Jeremy Magallanes Other [employer] Other 09-04-2022 11:30-0500 Body height 175.26 cm Jeremy Magallanes Other [employer] Other 09-04-2022 11:30-0500 Body mass index (BMI) [Ratio] 33.52 kg/m2 Jeremy Magallanes Other [employer] Other 09-04-2022 11:30-0500 Body weight 102.97 kg Jeremy Magallanes Other [employer] Other 09-04-2022 11:30-0500 Diastolic blood pressure 80 mm[Hg] Jeremy Magallanes Other [employer] Other 09-04-2022 11:30-0500 SaO2% (BldA) [Mass fraction] 95 % Jeremy Magallanes Other [employer] Other 09-04-2022 11:30-0500 Systolic blood pressure 122 mm[Hg] Jeremy Magallanes Other [employer] Other 02-06-2022 12:45-0400 Body height 175.26 cm Kesha Olexa Other [employer] Other 02-06-2022 12:45-0400 Body mass index (BMI) [Ratio] 31.01 kg/m2 Kesha Olexa Other [employer] Other 02-06-2022 12:45-0400 Body weight 95.26 kg Kesha Olexa Other [employer] Other 05-26-2021 13:15-0400 Body height 175.26 cm Harriet Ginty Other [employer] Other 05-26-2021 13:15-0400 Body mass index (BMI) [Ratio] 31.01 kg/m2 Harriet Ginty Other [employer] Other 05-26-2021 13:15-0400 Body temperature 98.3 [degF] Harriet Ginty Other [employer] Other 05-26-2021 13:15-0400 Body weight 95.26 kg Harriet Ginty Other [employer] Other 05-26-2021 13:15-0400 SaO2% (BldA) [Mass fraction] 96 % Harriet Mo Other [place] [employer] Other Encounters Encounter Date Encounter Type Care Provider Facility Start: 11-04-2024 End: 11-05-2024 ambulatory Ligia DIOP Facility:[facility] Start: 11-04-2024 End: 11-05-2024 Patient encounter procedure Ligia DIOP [facility] Start: 11-04-2024 End: 11-05-2024 ambulatory Ligia DIOP Facility:[facility] Start: 10-15-2024 End: 10-15-2024 ambulatory [facility] Work Phone: Start: 10-15-2024 End: 10-15-2024 Patient encounter procedure [facility] Work Phone: Start: 10-12-2024 Non-patient / Non-visit [facility] Work Phone: Start: 10-11-2024 Non-patient / Non-visit [facility] Work Phone: Start: 08-26-2024 Non-patient / Non-visit [facility] Work Phone: Start: 08-17-2024 End: 08-17-2024 ambulatory Zacarias Pkie MD Facility: [facility] Start: 07-23-2024 End: 07-23-2024 Patient encounter procedure [facility] Work Phone: Start: 07-21-2024 Non-patient / Non-visit [facility] Work Phone: Start: 07-20-2024 Non-patient / Non-visit [facility] Work Phone: Start: 06-17-2024 End: 06-17-2024 ambulatory MD Jeremy Magallanes Work Phone: [facility] Work Phone: Start: 06-17-2024 End: 06-17-2024 Patient encounter procedure MD Jeremy Magallanes Work Phone: [facility] Work Phone: Start: 06-12-2024 End: 06-12-2024 Orders Only Not In System Ref Prov [facility] Start: 06-10-2024 End: 06-10-2024 Orders Only Rosalia Shea [facility] Comment on above: Dysphagia, unspecifi ed type; Black stools Start: 06-03-2024 End: 06-03-2024 ambulatory MD Jeremy Magallanes Work Phone: [facility] Work Phone: Start: 06-03-2024 End: 06-03-2024 Departed Referred MD Jeremy Magallanes Work Phone: [facility] Start: 06-03-2024 Non-patient / Non-visit MD Angelina Magallanes Work Phone: [facility] Work Phone: Start: 05-27-2024 End: 05-27-2024 Office outpatient new 30 minutes Priyanka Vaz INSTRUMENTATION CONTROLS ENGINEER-SENIOR MANUFACTURING TEST ENGINEER Work Phone: [facility] Comment on above: Dysphagia, unspecifi ed type (Primary Dx); Black stools; Gastroesophageal reflux disease, unspecified whether esophagitis present; Abnormal esophagram Start: 05-27-2024 End: 05-27-2024 ambulatory PRIYANKA VAZ [facility] Start: 05-18-2024 End: 05-18-2024 ambulatory Zacarias Pike MD Facility:[facility] Start: 05-14-2024 End: 05-21-2024 Telephone encounter Ameya [...] Facility:[facility] Start: 03-18-2024 End: 03-18-2024 ambulatory [facility] Work Phone: Start: 03-18-2024 End: 03-18-2024 Patient encounter procedure [facility] Work Phone: Start: 03-16-2024 End: 03-16-2024 ambulatory Zacarias Pike MD Facility:[facility] Start: 03-03-2024 End: 03-03-2024 ambulatory [facility] Work Phone: Start: 03-03-2024 End: 03-03-2024 Patient encounter procedure [facility] Work Phone: Start: 02-27-2024 Non-patient / Non-visit [facility] Work Phone: Start: 02-24-2024 End: 02-24-2024 ambulatory Zacarias Pike MD Facility:[facility] Start: 02-03-2024 End: 02-03-2024 ambulatory [facility] Start: 01-20-2024 End: 01-20-2024 ambulatory Zacarias Pike MD Facility:[facility] Start: 12-17-2023 End: 12-17-2023 ambulatory [facility] Work Phone: Start: 12-17-2023 End: 12-17-2023 Patient encounter procedure [facility] Work Phone: Start: 12-05-2023 End: 12-05-2023 ambulatory [facility] Work Phone: Start: 12-05-2023 End: 12-05-2023 Patient encounter procedure [facility] Work Phone: Start: 10-23-2023 Non-patient / Non-visit [facility] Work Phone: Start: 10-08-2023 Non-patient / Non-visit [facility] Work Phone: Start: 10-07-2023 End: 10-07-2023 ambulatory BARBIE Tellez [facility]OC[facility] Not Available Start: 09-18-2023 End: 09-18-2023 ambulatory Jeremy Magallanes Other [employer] Other Start: 09-18-2023 Telephone encounter Jeremy Magallanes [facility] Start: 09-13-2023 End: 09-13-2023 ambulatory Jeremy Magallanes Other [employer] Other Start: 09-13-2023 Office outpatient vi sit 15 minutes Jeremy Magallanes [facility] Start: 09-13-2023 End: 09-13-2023 Patient encounter procedure [facility] Start: 09-11-2023 Telephone encounter [place] [...] 09-10-2023 End: 09-10-2023 ambulatory Jeremy Magallanes Other [employer] Other Start: 09-10-2023 Telephone encounter Jeremy Magallanes [facility] Start: 09-06-2023 End: 09-06-2023 ambulatory Jeremy Magallanes Other [employer] Other Start: 09-06-2023 Telephone encounter Jeremy Magallanes [facility] Start: 09-02-2023 End: 09-02-2023 ambulatory JIN POCOS Not Available Start: 08-20-2023 End: 08-20-2023 ambulatory Jeremy Magallanes Other [employer] Other Start: 08-20-2023 Telephone encounter Jeremy Magallanes [facility] Start: 08-13-2023 End: 08-13-2023 ambulatory Jeremy Magallanes Other [employer] Other Start: 08-13-2023 Office outpatient vi sit 25 minutes Jeremy Magallanes [facility] Start: 08-13-2023 Telephone encounter Jeremy Magallanes [facility] Start: 08-06-2023 End: 08-06-2023 ambulatory Jeremy Magallanes Other [employer] Other Start: 08-06-2023 Telephone encounter Jeremy Magallanes [facility] Start: 07-29-2023 End: 07-29-2023 ambulatory BARBIE TAPIA Not Available Start: 07-22-2023 End: 07-22-2023 ambulatory Jeremy Magallanes Other [employer] Other Start: 07-22-2023 Telephone encounter Jeremy Magallanes [facility] Start: 07-19-2023 End: 07-19-2023 ambulatory Jeremy Magallanes Other [employer] Other Start: 07-19-2023 Telephone encounter Jeremy Magallanes [facility] Start: 07-18-2023 End: 07-18-2023 ambulatory Jeremy Magallanes Other [employer] Other Start: 07-18-2023 Telephone encounter Jeremy Magallanes [facility] Start: 07-02-2023 End: 07-02-2023 ambulatory Jeremy Magallanes Other [employer] Other Start: 07-02-2023 Office outpatient vi sit 15 minutes Jeremy Magallanes [facility] Start: 07-02-2023 Telephone encounter Jeremy Magallanes [facility] Start: 06-25-2023 End: 06-25-2023 ambulatory Jeremy Magallanes Other [employer] Other Start: 06-25-2023 Office outpatient vi sit 15 minutes Jeremy Magallanes [facility] Start: 06-21-2023 End: 06-21-2023 ambulatory Jeremy Magallanes Other [employer] Other Start: 06-21-2023 Encounter by edmond owen Jeremy Magallanes [facility] Start: 06-20-2023 End: 06-20-2023 ambulatory Jeremy Magallanes Other [employer] Other Start: 06-20-2023 Telephone encounter Jeremy Magallanes [facility] Start: 06-17-2023 End: 06-17-2023 ambulatory Jeremy Magallanes Other [employer] Other Start: 06-17-2023 Telephone encounter Jeremy Magallanes [facility] Start: 06-10-2023 End: 06-10-2023 ambulatory Jeremy Magallanes Other [employer] Other Start: 06-10-2023 Telephone encounter Jeremy Magallanes [facility] Start: 06-03-2023 End: 06-03-2023 ambulatory Jeremy Magallanes Other [employer] Other Start: 06-03-2023 Telephone encounter Jeremy Magallanes [facility] Start: 05-30-2023 End: 05-30-2023 Patient encounter procedure Barbie Tapia [facility] Start: 05-28-2023 End: 05-28-2023 ambulatory Jeremy Magallanes Other [employer] Other Start: 05-28-2023 Office outpatient vi sit 15 minutes Jeremy Magallanes [facility] Start: 2023 End: 2023 ambulatory Jermey Magallanes Other [employer] Other Start: 2023 Office outpatient vi sit 15 minutes Jeremy Magallanes [facility] Start: 05-16-2023 End: 05-16-2023 ambulatory Jeremy Magallanes Other [employer] Other Start: 05-16-2023 Telephone encounter Jeremy Magallanes [facility] Start: 04-30-2023 End: 04-30-2023 ambulatory Jeremy Magallanes Other [employer] Other Start: 04-30-2023 Office outpatient vi sit 15 minutes Jeremy Magallanes [facility] Start: 04-26-2023 End: 04-26-2023 ambulatory Jeremy Sona Other [employer] Other Start: 04-26-2023 Telephone encounter Jeremy Magallanes [facility] Start: 04-23-2023 End: 04-23-2023 ambulatory Jeremy Sona Other [employer] Other Start: 04-23-2023 Telephone encounter Jeremy Sona [facility] Start: 03-25-2023 End: 03-25-2023 ambulatory Jeremy Sona Other [employer] Other Start: 03-25-2023 Telephone encounter Jeremy Sona [facility] Start: 03-06-2023 End: 03-06-2023 ambulatory Jeremy Sona Other [employer] Other Start: 03-06-2023 Telephone encounter Jeremy Sona [facility] Start: 02-20-2023 End: 02-20-2023 ambulatory Jeremy Sona Other [employer] Other Start: 02-20-2023 Office outpatient vi sit 25 minutes Jeremy Sona [facility] Start: 02-05-2023 End: 02-05-2023 ambulatory Jeremy Sona Other [employer] Other Start: 02-05-2023 Telephone encounter Jeremy Sona [facility] Start: 01-21-2023 End: 01-21-2023 ambulatory Jeremy Sona Other [employer] Other Start: 01-21-2023 Telephone encounter Jeremy Sona [facility] Start: 01-17-2023 End: 01-17-2023 ambulatory Jeremy Sona Other [employer] Other Start: 01-17-2023 Office outpatient vi sit 15 minutes Jeremy Magallanes [facility] Start: 12-24-2022 End: 12-24-2022 ambulatory Jeremy Magallanes Other [employer] Other Start: 12-24-2022 Telephone encounter Jeremy Snoa [facility] Start: 12-03-2022 End: 12-03-2022 ambulatory Jeremy Magallanes Other [employer] Other Start: 12-03-2022 Telephone encounter Jeremy Sona [facility] Start: 11-27-2022 End: 11-27-2022 ambulatory Jeremy Magallanes Other [employer] Other Start: 11-27-2022 Telephone encounter Jeremy Sona [facility] Start: 11-26-2022 End: 11-26-2022 ambulatory Jeremy Magallanes Other [employer] Other Start: 11-26-2022 Telephone encounter Jeremy Magallanes [facility] Start: 11-24-2022 End: 11-25-[address] JEREMY MAGALLANES Facility: Start: 11-23-2022 End: 11-23-2022 ambulatory Jeremy Magallanes Other [employer] Other Start: 11-23-2022 Office outpatient vi sit 15 minutes Jeremy Magallanes [facility] Start: 11-05-2022 End: 11-05-2022 ambulatory Jeremy Magallanes Other [employer] Other Start: 11-05-2022 Telephone encounter Jeremy Sona [facility] Start: 10-03-2022 End: 10-03-2022 ambulatory Jeremy Magallanes Other [employer] Other Start: 10-03-2022 Telephone encounter Jeremy Sona [facility] Start: 09-04-2022 End: 09-04-2022 ambulatory Jeremy Magallanes Other [employer] Other Start: 09-04-2022 Office outpatient vi sit 25 minutes Jeremy Maglalanes [facility] Start: 07-26-[address] JEREMY MAGALLANES Facil ity:[facility] Start: 07-19-2022 End: 07-20-[address] WILFREDO ENGLE Facility:[facility] Start: 06-07-2022 End: 06-07-[address] JEREMY MAGALLANES Facility:[facility] Start: 03-15-2022 ambulatory KESHA TRUJILLO Facility:[facility] Start: 02-06-2022 End: 02-06-2022 ambulatory Kesha Olexa Other [employer] Other Start: 02-06-2022 Office outpatient vi sit 25 minutes Kesha Olexa [facility] Start: 02-02-2022 End: 02-03-2022 ambulatory KESHA OLEXA Facility:[facility] Start: 12-28-2021 End: 12-28-[address] JEREMY MAGALLANES Facility:[facility] Start: 12-12-2021 End: 12-13-2021 ambulatory KESHA OLEXA [employer] Other Start: 12-12-2021 Office outpatient ne w 30 minutes Kesha Olexa [facility] Start: 05-26-2021 Office outpatient vi sit 15 minutes Harriet Ginty [facility] Procedures Date Procedure Procedure Detail Performing Clinician Start: 06-03-2024 Esophagogastroduodenoscopy Priyanka vázquez INSTRUMENTATION CONTROLS ENGINEER-SENIOR MANUFACTURING TEST ENGINEER Work Phone: Start: 06-03-2024 Level i surg pathology gross examination only Not In System Ref Prov Start: 06-03-2024 MULTIPLE LABS Not In System Ref Prov Start: 12-18-2018 Laboratory test result abnormal Jeremy olmstead Other Start: 05-12-2018 Removal of suture Jeremy Magallanes Other Start: 01-08-2017 Screening for malignant neoplasm of prostate Jeermy Magallanes Other Screening for malign ant neoplasm of colon Jeremy Magallanes Other Screening for malign ant neoplasm of prostate Jeremy Magallanes Other Plan of Treatment Date Care Activity Detail Author Start: 06-28-2026 DTaP,Tdap and Td Vaccines (3 - Td or Tdap) DTaP,Tdap and Td Vaccines (3 - Td or Tdap) [facility] Start: 05-27-2025 Adult BMI Screening Adult BMI Screening [facility] Start: 05-27-2025 Tobacco Screening Tobacco Screening [facility] Start: 10-15-2024 Patient referral [facility] Work Phone: Start: 04-19-2024 Influenza vaccination Influenza Vaccine [facility] Start: 04-07-2024 End: 04-07-2024 Patient encounter procedure 04/07/2024 10:30 AM EDT Office Visit [facility] [address] [facility] [address] [place] [id number] Malathi Sanchez MD [address] [place] [address] Arrived [facility] Comment on above: Arrived Start: 03-18-2024 Patient referral [facility] Work Phone: Start: 10-07-2023 End: 10-07-2023 Patient encounter procedure 10/07/2023 8:00 AM EST Office Visit [facility] [address] [place] [address] Barbie Tapia DO [address] [place], [place] [id number] [facility] Start: 2010 Administration of varicella zoster vaccine Zoster (Shingles) Vaccine (1 of 2) [facility] Start: 1978 Adult BMI Follow Up Plan Adult BMI Follow Up Plan [facility] Start: 1972 Depression Screening Depression Screening [facility] Start: 1960 Tobacco Counseling Tobacco Counseling [facility] CT Chest WO contrast [facility] CT Neck W contrast IV [facility] End: 05-27-2025 Esophagogastroduodenoscopy EGD GI Routine Dysphagia, unspecified type Black stools 1 Occurrences starting 05/27/2024 until 05/27/2025 [facility] Work Phone: Comment on above: 1 Occurrences starting 05/27/2024 until 05/27/2025 Patient referral [facility] Work Phone: XR Pelvis and Hip - bilateral Views [facility] Immunizations Immunization Date Immunization Notes Care Provider Leon escalera 06-02-2018 Influenza, injectabl e, Madin Kyleigh Canine Kidney, preservative free, quadrivalent Argentina Clinton PT Work Phone: [facility] 06-02-2018 influenza virus vaccine, unspecified formulation Priyanka Vaz INSTRUMENTATION CONTROLS ENGINEER-SENIOR MANUFACTURING TEST ENGINEER Work Phone: [facility] [employer] [facility] 05-17-2017 influenza virus vaccine, split virus (incl. purified surface antigen) Jeremy Magallanes Other [employer] Other 05-17-2017 influenza virus vaccine, unspecified formulation [facility] 05-16-2017 influenza, injectabl e, quadrivalent, preservative free Argentina Clinton PT Work Phone: [facility] 06-28-2016 influenza, injectabl e, quadrivalent, preservative free Argentina Clinton PT Work Phone: [facility] 06-28-2016 tetanus and diphther ia toxoids, adsorbed, preservative free, for adult use (5 Lf of tetanus toxoid and 2 Lf of diphtheria toxoid) Jeremy Magallanes Other [facility] 05-25-2015 influenza, seasonal, injectable, preservative free Argentina Clinton PT Work Phone: [facility] 05-25-2015 tetanus and diphther ia toxoids, adsorbed, preservative free, for adult use (5 Lf of tetanus toxoid and 2 Lf of diphtheria toxoid) Jeremy Magallanes Other [facility] 06-15-1999 pneumococcal conjuga te vaccine, 7 valent Argentina Clinton PT Work Phone: [facility] Payers Date Payer Category Payer Medicaid [id number] 2013 Medicare [id number] 1960 Unknown [id number] 2.16.84 0.1.070452.3.579.2.593 1960 Unknown [id number] 2.16.84 0.1.003955.3.579.2.593 1960 Unknown [id number] 2.16.84 0.1.394201.3.579.2.593 1960 Unknown [id number] 2.16.84 0.1.734855.3.579.2.593 1960 Unknown [id number] 2.16.84 0.1.191001.3.579.2.593 1960 Unknown [id number] 2.16.84 0.1.271567.3.579.2.593 1960 Unknown [id number] 2.16.84 0.1.369241.3.579.2.593 1960 Unknown [id number] 2.16.84 0.1.676525.3.579.2.593 1960 Unknown [id number] 2.16.84 0.1.818469.3.579.2.1259 1960 Unknown [id number] 2.16.84 0.1.597607.3.579.2.1259 1960 Unknown [id number] 2.16.84 0.1.962200.3.579.2.1259 1960 Unknown [id number] 2.16.84 0.1.217214.3.579.2.1259 1960 Unknown [id number] 2.16.840 .1.310602.3.579.2.1259 1960 Unknown [id number] 2.16.8 40.1.612823.3.579.2.1286 1960 Unknown [id number] 2.16. 840.1.755321.3.579.2.196 1960 Unknown [id number] 2.16. 840.1.759552.3.579.2.196 1960 Unknown [id number] 2.16. 840.1.432905.3.579.2.196 1960 Unknown [id number] 2.16. 840.1.263707.3.579.2.196 1960 Unknown [id number] 2.16. 840.1.692088.3.579.2.196 1960 Unknown [id number] 2.16. 840.1.024774.3.579.2.196 1960 Unknown [id number] 2.16. 840.1.598332.3.579.2.196 1960 Unknown [id number] 2.16.8 40.1.376411.3.579.2.727 1960 Unknown [id number] 2.16.8 40.1.260342.3.579.2.727 1959 Medicaid [id number] 2. 16.840.1.246260.19 1959 Medicare [id number] 2.1 6.840.1.870949.19 Self-pay [id number] Social History Date Type Detail Facility Start: 09-29-2020 End: 09-02-2023 Sex Assigned At [facility] Tobacco smoking status [facility] Start: 06-03-2019 End: 03-27-2023 Tobacco smoking status MIIS Smokes tobacco daily [facility] Work Phone: History of tobacco [...] Healthcare Start: 1960 Sex Assigned At Male [facility] Start: 08-21-2023 Gender identity Identifies as male gender (finding) [facility] Start: 08-21-2023 Sexual orientation Heterosexual (finding) [facility] Start: 02-06-2017 End: 02-06-2017 Tobacco smoking status MIIS Ex-smoker (finding) [facility] Tobacco smoking stat [facility] Tobacco smoking consumption unknown [facility] Start: 1960 Sex assigned at Not on file [facility] Frequency of Alcohol Consumption Never [facility] Start: 03-30-2013 End: 06-01-2019 Sex [facility] (finding) [facility] Medical Equipment Procedure Code Equipment Code Equipment Original Text Equi pment Identifier Dates Accu-Chek FastClix Lancet - Clinical Notes 05-26-2021 to 11-04-2024 Note Date & Type Note Facility 11-04-2024 Note Progress Note-Nurse LVM to talk about A1C level, he will be getting a one year card but will have to talk with his PCP about getting that number down. [facility] 07-23-2024 Evaluation note Diagnosis Onset Date Resolution GERD (gastroesophageal reflux disease) acute July 23 10:18am Lymphadenopathy acute July 23, 2024 10:18am Mass of left submandibular region acute July 10:18am Bladder diverticulum acute Febr uary 2024 8:52am Enlarged prostate acute uar 2024 8:52am Lymphadenopathy acute October 15, 2024 8:52am [facility] Work Phone: [phone] 979-109710-25-2024 Miscellaneous Notes* Telephone Encounter - Evelyn Mendoza CMA - 06/12/2024 12:00 PM EDT ----- Message from Dr. Bill Henry DO [...] risk of esophageal cancer. Thanks, Dr. Kc * Telephone Encounter - Evelyn Mendoza CMA - 06/12/2024 12:00 PM EDT Spoke with patient regarding pathology results. Patient verbally understood with no further questions. 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 Address verified with patient. [facility] [id number] Telephone encounter Note* Telephone Encounter - Evelyn Mendoza CMA - 06/12/2024 12:00 PM EDT ----- Message from Dr. Bill Henry, sent [...] risk of esophageal cancer. Thanks, Dr. Kc [facility] [id number] Telephone encounter Note* Telephone Encounter - Evelyn Mendoza CMA - 06/12/2024 12:00 PM EDT Spoke with patient regarding pathology results. Patient verbally understood with no further questions. 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 Address verified with patient. [facility]10-09-2024 History of Present illness Narrative* Priyanka Rosalinda Vaz, INSTRUMENTATION CONTROLS ENGINEER-SENIOR MANUFACTURING TEST ENGINEER - 05/27/2024 2:30 PM EDT Images from the original note were not [...] gallbladder polyp. He saw Dr. Martinez in [place] for this. He also reports a positive Cologuard last year. He has not followed up on this with colonoscopy andhe does not wish to. Review of Systems Constitutional: Negative for fever and unexpected weight change. HENT: Positive for trouble swallowing. Respiratory: Negative for shortness of breath. Cardiovascular: Negative for chest pain. Gastrointestinal: Positive for nausea, vomiting, abdominal pain and black tarry stool. Negative fordiarrhea, constipation and blood in stool. GERD Genitourinary: Negative for dysuria and difficulty urinating. Musculoskeletal: Negative for gait problem. Skin: Negative for rash and wound. Neurological: Negative for dizziness, weakness and light-headedness. Hematological: Does not bruise/bleed easily. Psychiatric/Behavioral: Negative for confusion. Past Medical History: Diagnosis Date Cancer ([facility]) Chronic back pain COPD (chronic obstructive pulmonary disease) ([facility]) Dental disease full dentures Diabetes mellitus ([facility]) Shortness of breath Skin cancer MELANOMA & [...] inhaler, Inhale 2 puffs every 6 (six) hoursas needed for wheezing. Pt states he only uses this twice a year, has not used in the last 3months,Disp: , Rfl: glipiZIDE-metFORMIN (METAGLIP) 5-500 mg per [...] right upper quadrant and epigastric area. There isno guarding. Musculoskeletal: General: Normal range of motion. [...] Referring and communicating with other health care transition mgr Dysphagia, unspecified type [R13.10] PRIYANKA VAZ, INSTRUMENTATION CONTROLS ENGINEER-SENIOR MANUFACTURING TEST ENGINEER [facility] [place] This note was created with the assistance of a speech recognition program. While intending to generate a timely document that accurately reflects the content of the visit, no guarantee can be provided that every grammatical or spelling mistake has been or will be identified or corrected. Thank you for your understanding. CHARLEE Patel 05/27/24 1555 documented in this [facility] Telephone encounter Note* Telephone Encounter - Vivian Morley - 05/15/2024 11:35 AM EDT Images from the original note were not included. Consult from Dr. Jeremy Magallanes (Internal Medicine) [facility] Referral received from PCP for [...] completed: 04/08/2024 Barium Swallow 03/21/2024 CT Chest [facility]09-27-2024 Miscellaneous Notes* Telephone Encounter - Vivian Morley - 05/15/2024 11:35 AM EDT Images from the original note were not included. Consult from Dr. Jeremy Magallanes (Internal Medicine) [facility] Referral received from PCP for [...] completed: 04/08/2024 Barium Swallow 03/21/2024 CT Chest * Telephone Encounter - Keily Martines - 05/14/2024 1:07 PM EDT Images from the original note were not included. Referral was sent from [facility] for new consult with Dr Meraz Please see below and advise [facility] Telephone encounter Note * Telephone Encounter - Keily Martines - 05/14/2024 1:07 PM EDT Images from the original note were not included. Referral was sent from [facility] for new consult with Dr Meraz Please see below and advise [facility]09-16-2024 Telephone encounter Note* Telephone Encounter - Cynthia Sanchez - 05/04/2024 9:45 AM EDT Left message on sister's voice mail to contact Dr Magallanes's office for referral. [facility] [id number] Miscellaneous Notes* Telephone Encounter - Cynthia Sanchez - 05/04/2024 9:45 AM EDT Left message on sister's voice mail to contact Dr Magallanes's office for referral. * Telephone Encounter - Malathi Sanchez MD - 05/04/2024 9:27 AM EDT That needs to be done by Dr Magallanes's office * Telephone Encounter - Cynthia Sanchez - 05/04/2024 9:15 AM EDT Pt's sister called in. She said her brother would like a referral sent to Dr Ameya Meraz at [facility]. He is a gastrologist. The fax number is [phone] . Pt's sister would like a call back at [phone]. documented in this encounterEllis Fischel Cancer [id number] Telephone encounter Note* Telephone Encounter - Malathi Sanchez MD - 05/04/2024 9:27 AM EDT That needs to be done by Dr Magallanes's office [facility] [id number] Telephone encounter Note* Telephone Encounter - Cynthia Sanchez - 05/04/2024 9:15 AM EDT Pt's sister called in. She said her brother would like a referral sent to Dr Ameya Meraz at [facility]. He is a gastrologist. The fax number is [phone] . Pt's sister would like a call back at [phone]. [facility] [id number] History of Present illness Narrative* Malathi Sanchez MD - 04/07/2024 10:30 AM EDT Subjective Patient ID: Alex Craig is a 63 y.o. male who presents for Neck Mass (CT @ [facility] 02/26[facility]) Pt reports he is getting food [...] Take 1 tablet by mouth every 6 (six)hours if needed glipiZIDE-metFORMIN (Metaglip) 5-500 MG tablet Take 2 tablets by mouth in the morning and 2 tabletsbefore bedtime. tiZANidine (Zanaflex) 4 MG tablet Take [...] resolved. F/U if recurs documented in this encounterEllis Fischel Cancer [id number] Telephone encounter Note* Telephone Encounter - Maris Tavera - 10/02/2023 1:35 PM EST No attempts to hear back; closing referral. [facility] [id number] Miscellaneous Notes* Telephone Encounter - Maris Tavera - 10/02/2023 1:35 PM EST No attempts to hear back; closing referral. documented in this encounterEllis Fischel Cancer [id number] Evaluation note* Encounter Date Diagnosis Assessment Notes Treatment Notes Treatment Clinical Notes Aug, Chronic obstructive pulmonary disease, unspecified (ICD-10 - J44.9) Finish antibiotics and prednisone as prescribed. Denies pulmonary referral at this time. Hasn't smoked since 09/08 and declines chantix or patches. Aug, Current smoker (ICD-10 - F17.200) [employer] Other 01-23-2024 Evaluation note* Encounter Date Diagnosis Assessment Notes Treatment Notes Treatment Clinical Notes Aug, Lumbar radicular pain (ICD-10 - M54.16) [employer] Other 01-19-2024 Evaluation note* Encounter Date Diagnosis Assessment Notes Treatment Notes Treatment Clinical Notes Aug, Lumbar radicular pain (ICD-10 - M54.16) [employer] Other 12-26-2023 Evaluation note* Encounter Date Diagnosis Assessment Notes Treatment Notes Treatment Clinical Notes Jul, Type 2 diabetes mellitus with hyperglycemia, without long-term current use of insulin (ICD-10 - E11.65) [employer] Other 12-26-2023 Evaluation note* Encounter Date Diagnosis [...] T3s after shoulder pain has improved post-operatively. [employer] Other 12-04-2023 Evaluation note* Encounter Date Diagnosis Assessment Notes Treatment Notes Treatment Clinical Notes Jul, Type 2 diabetes mellitus with hyperglycemia, without long-term current use of insulin (ICD-10 - E11.65) [employer] Other 12-01-2023 Evaluation note* Encounter Date Diagnosis Assessment Notes Treatment Notes Treatment Clinical Notes Jul, Type 2 diabetes mellitus with hyperglycemia, without long-term current use of insulin (ICD-10 - E11.65) [employer] Other 11-30-2023 Evaluation note* Encounter Date Diagnosis Assessment Notes Treatment Notes Treatment Clinical Notes Jun, Labral tear of shoulder, right, subsequent encounter (ICD-10 - S43.431D) [employer] Other 11-14-2023 Evaluation note* Encounter Date Diagnosis [...] pain (ICD-10 - R07.9) r/o cardiac cause [employer] Other 11-07-2023 Evaluation note* Encounter Date Diagnosis [...] to decrease dose and possibly discontinue medication. [employer] Other 11-02-2023 Evaluation note* Encounter Date Diagnosis Assessment Notes Treatment Notes Treatment Clinical Notes Jun, Acute pain of right shoulder (ICD-10 - M25.511) [employer] Other 10-30-2023 Evaluation note* Encounter Date Diagnosis Assessment Notes Treatment Notes Treatment Clinical Notes May, Acute pain of right shoulder (ICD-10 - M25.511) [employer] Other 10-23-2023 Evaluation note* Encounter Date Diagnosis Assessment Notes Treatment Notes Treatment Clinical Notes May, Acute pain of right shoulder (ICD-10 - M25.511) [employer] Other 10-16-2023 Evaluation note* Encounter Date Diagnosis Assessment Notes Treatment Notes Treatment Clinical Notes May, Acute pain of right shoulder (ICD-10 - M25.511) [employer] Other 10-10-2023 Evaluation note* Encounter Date Diagnosis Assessment Notes Treatment Notes Treatment Clinical Notes May, Acute pain of right shoulder (ICD-10 - M25.511) MRI and surgery planning pending. Pt understands this is a controlled substance and to call in 1 week w update on treatment plan. May, Bronchitis (ICD-10 - J40) Finish antibiotic, rest, hydrate Steroids for wheezing. [employer] Other 10-04-2023 Evaluation note* Encounter Date Diagnosis Assessment Notes Treatment Notes Treatment Clinical Notes May, Acute pain of right shoulder (ICD-10 - M25.511) Reviewed OAR[place] and discussed short term plan of increase in pain medication. He is due for a refill of the T3s presently. Stop them, replace w norco. Pt understands weekly prescription and will need to d/c after anticipated surgery. [employer] Other 09-12-2023 Evaluation note* Encounter Date Diagnosis [...] office and the ER visit on 04/26 [employer] Other 07-05-2023 Evaluation note* Encounter Date Diagnosis [...] and will need less prn pain med. [employer] Other 06-01-2023 Evaluation note* Encounter Date Diagnosis [...] left shoulder (ICD-10 - M25.512) as above. [employer] Other 04-17-2023 Evaluation note* Encounter Date Diagnosis Assessment Notes Treatment Notes Treatment Clinical Notes Nov, Bronchitis (ICD-10 - J40) [employer] Other 04-11-2023 Evaluation note* Encounter Date Diagnosis Assessment Notes Treatment Notes Treatment Clinical Notes Nov, Disc degeneration, lumbar (ICD-10 - M51.36) Nov, Lumbar radicular pain (ICD-10 - M54.16) [employer] Other 04-07-2023 Evaluation note* Encounter Date Diagnosis [...] quit smoking. Pt verbalizes understanding and agreement. [employer] Other 02-15-2023 Evaluation note* Encounter Date Diagnosis Assessment Notes Treatment Notes Treatment Clinical Notes Sep, Lumbar radicular pain (ICD-10 - M54.16) [employer] Other 01-17-2023 Evaluation note* Encounter Date Diagnosis [...] is outlined on the test result page. [employer] Other 10-20-2022 NoteIndication: Calculus in kidney. Comparison: [...] Electronically authenticated by: JOHN PINTO Date: 2022-06-07 20:07[facility]06-21-2022 Evaluation note* Encounter Date Diagnosis [...] of infection, hardware pullout, cuff repair failure, fci pain and stiffness are well known problems [...] of repair, infection and wound healing delays. [employer] Other 04-26-2022 NotePROCEDURE: XR SHOULDER LT 2V or > COMPARISON: None. HISTORY: Pain of left shoulder joint FINDINGS: BONES:No acute fracture or dislocation. 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 No visible soft tissue swelling. EFFUSION:None visible. OTHER: Negative. IMPRESSION: Mild osteoarthritis Electronically authenticated by: BARBIE MEMBRENO Date: 2021-12-12 15:25[facility] [id number] Evaluation note* Encounter Date Diagnosis Assessment Notes [...] pain of left shoulder (ICD-10 - M25.512) [employer] Other 10-08-2021 Evaluation note* Encounter Date Diagnosis [...] as needed for cough. Advised patient that [place] contains antihistamine and cough suppressant and to be cautious using other OTC cold medications. Patient to follow up with PCP if symptoms do not improve. Immediate eval if SOB, difficulty breathing, chest pain, dizziness, or other concerning symptoms. Patient verbalizes understanding and is agreeable to treatment plan [employer] Other Evaluation + Plan note No data available for this section [facility] noteNo InformationNort [employer] Other Evaluation note* Diagnosis Onset Date Resolution Status Arthralgia acute Lumbar pain acute Type II diabetes mellitus ac [place] [facility] Work Phone: Evaluation note* Diagnosis Onset Date Resolution Status Arthralgia acute Lumbar pain acute Type II diabetes mellitus ac [place] Bilateral hip pain acute [facility] Work Phone: Evaluation note* Diagnosis Onset Date Resolution Status Arthralgia acute Lumbar pain acute Type II diabetes mellitus ac [place] Bilateral hip pain acute Lumbar pain acute [facility] Work Phone: Evaluation note* Diagnosis Onset Date Resolution Status Submandibular abscess acute Chronic obstructive pulmonary disease, unspecified acute Esophageal abnormality acute Mass of left submandibular region acute [facility] Work Phone: Evaluation note* Diagnosis Onset Date Resolution Status Chronic obstructive pulmonary disease, unspecified acute Esophageal abnormality acute Mass of left submandibular region acute [facility] Work Phone: Evaluation note* Diagnosis Onset Date Resolution Status 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 HealthcareEvaluation note* Diagnosis Dysphagia, unspecified type- Primary Black stools Nonspecific abnormal finding in stool contents Gastroesophageal reflux disease, unspecified whether esophagitis present Abnormal esophagram documented in this [facility] Diagnosis Dysphagia, unspecified type Black stools Nonspecific abnormal finding in stool contents documented [facility] this encounter [facility] general Narrative - Reported* Type Description Date Medical History Asthma Medical History skin cancer-lip Surgical History Left lung biopsy 1977 Surgical History L4 and L5 disc fusion 1985 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 instructionsAmbulatory Orders* Referral to ENT Time Frame: 03/18/24, Location: None Selected [facility] Work Phone: Hospital Discharge instructionsAmbulatory Orders* Referral to Urology Time Frame: 10/15/24, Location: None Selected [facility] Work Phone: InstructionsNot on filedocumented in this encounter [facility] SystemInstructionsNot on filedocumented in this encounter [facility] Health SystemInstructionsNot on filedocumented in this encounter [facility] SystemProgress note No data available for this section [facility] Summary Purpose Family History No Family History Records Found Relationship Condition Age at Onset Recorded Date/T alayna father Unknown Malignant neoplasm Unknown Not Specified Unknown Relationship Condition Age at Onset Recorded Date/T alayna father Unknown Malignant neoplasm Unknown mother Unknown Advance Directives No Advanced Directives Records Found Advance Directive Response Recorded Date/ Time Advance Directives No January 25 9:53am Advance Directive Response Recorded Date/ Time Advance Directives No January 25 8:53am Reason for Referral Reason *FU 02/27 Epigastr ic pain, gall bladder polyp. Agrees to treatment, except colonoscopy. Last OV and today, labs and US scanned into chart. thanks Diagnosis 1 Epigastric abdominal pain (R10.13) Referral Organization [facility] [employer] Referring Provider First Name Jeremy Referring Provider Last Name Snoa Referring Provider Specialty [facility] [employer] Referred Organization [facility] Referred Provider Sai Martinez Referred Address ,[place], [place],[address] Referred Provider Specialty Surgery Referral Priority Routine General Notes Es Camilo 11:38:02 AM >received today, attachments made, notes locked, referral faxed Reason 01/28/23 Access Or tho - B shoulder pain L>R - hopes for injections. Diagnosis 1 Pain in right should er (M25.511) Referral Organization [facility] [employer] Referring Provider First Name Jeremy Referring Provider Last Name Sona Referring Provider Specialty [facility] [employer] Referred Organization [facility] Referred Provider Barbie Tapia Referred Address ,[place], [place] Referred Provider Specialty Orthopaedic Surgery Referral Priority [...] in right should er (M25.511) Referral Organization [facility] Referring Provider First Name Jeremy Referring Provider Last Name Sona Referring Provider Specialty [facility] Referred Organization [facility] Referred Provider Barbie Tapia Referred Address ,[place], [place],[address] Referred Provider Specialty Orthopaedic Surgery Referral Priority Routine General Notes Es Camilo 03:00:30 PM >received today, notes note locked, will fax when done [facility]aza[facility] johnson 01/21/2023 10:35:11 AM >sent TE to have notes locked Chief Complaint and Reason for Visit Chief Complaint [facility] Amb Documentation Amb Documentation JOINTS HURTING Reason [...] esophagus de termined by biopsy Hiatal hernia Chief Complaint Admit Date Amb Documentation Ted 2nd, 2024 1 :08pm CC Adult Risk Stratification July 9:32am ER f/u diff breathing, URI July 23, 2024 10:18am Amb Documentation October 12, 2024 2:17pm [facility]: back pain/swollen glands September 202024 8:52am Reason for Visit Admit Date GERD (gastroesophageal reflux disease) D ec2023 10:18am Lymphadenopathy July 23, 2024 1 0:18am Mass of left submandibular region Decemb er 2023 10:18am Bladder diverticulum October 15, 2024 8:52am Enlarged prostate October 15, 2024 8:52am Lymphadenopathy October 15, 2024 8:52am Additional Source Comments REASON FOR VISIT (unrecogniz [...] call back reinier. 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 Difficulty Swallowing Nausea Vomiting Abdominal Pain RUQ PAIN (unrecognized sect ion and content) No Status Records FoundNo Status Records FoundNo Status Records FoundNo Status Records FoundNo Status Records FoundNo Status Records FoundNo Status Records FoundNo Status Records Found INFORMATION SOURCE (unrecogn ized section and content) DATE CREATED AUTHOR 12/04/2022 [facility] DATE CREATED AUTHOR AUTHOR'S ORGANIZ ATION 04/08/2024 [facility] DATE CREATED AUTHOR AUTHOR'S ORGANIZ ATION 05/23/2024 [facility] DATE CREATED AUTHOR AUTHOR'S ORGANIZ ATION 05/29/2024 [facility] DATE CREATED AUTHOR AUTHOR'S ORGANIZ ATION 06/12/2024 [facility] DATE CREATED AUTHOR AUTHOR'S ORGANIZ ATION 09/01/2024 [facility] DATE CREATED AUTHOR AUTHOR'S ORGANIZ ATION 11/06/2024 [facility] DATE CREATED AUTHOR AUTHOR'S ORGANIZ ATION 11/11/2024 [facility] Patient Care team informatio n (unrecognized section [...] Provider Active Start : October 23, 2023 Baker Bread Relationship Specialty Start Date End Date Jeremy Magallanes MD [address] [place] [phone] PCP - General Family Medicine 01/23/23 Team Status: Inactive Member Role Status Dates Jeremy Magallanes MD Attending Provider Active St art: September 13, 2023 End: September 13, 2023 Baker Bread Relationship Specialty Start Date End Date Jeremy Magallanes MD [address] [place] [phone] Referring Family Medicine 05/12/24 Baker Bread Relationship Specialty [place] [address] [place] [id number] PCP - General Family Medicine 01/23/23 Baker Bread Relationship Specialty Start Date End Date Jeremy Magallanes MD [address] [facility] [place] [phone] PCP - General Family Medicine 01/23/23 Baker Bread Relationship Specialty Start Date End Date Jeremy Magallanes MD [address] [facility] [phone] PCP - General Family Medicine 01/23/23 Baker Bread Relationship Specialty Start Date End Date Jeremy Magallanes MD [address] [place] [address] PCP - General Family Medicine 06/03/19 Baker Bread Relationship Specialty Start Date End Date Jeremy Magallanes MD [address] [place] [address] PCP - General Family Medicine 06/03/19 Baker Bread Relationship Specialty Start Date End Date Jeremy Magallanes MD [address] [place] [address] PCP - General Family Medicine 06/03/19 Baker Bread Relationship Specialty Start Date End Date Jeremy Magallanes MD [address] [place] [address] PCP - General Family Medicine 06/03/19 Team Status: Active Member Role Status Dates Jeremy Magallanes MD Primary Care Provider Active Start: July 20, 2024 Charlotte Alarcon CMA Attending Provider Active Start: July 20, 2024 Team Status: Active Member Role Status Dates Jeremy Magallanes MD Primary Care Provide r, Attending Provider Active Start: July 21, 2024 Team Status: Inactive Member Role Status Dates Jeremy Magallanes MD Primary Care Provide r, Attending Provider Active Start: July 23, 2024 End: July 23, 2024 Team Status: Active Member Role Status Dates Jeremy Magallanes MD Primary Care Provide r, Attending Provider Active Start: August 26, 2024 Team Status: Active Member Role Status Dates Jeremy Magallanes MD Primary Care Provider Active Start: October 11, 2024 Giselle Jang DO Attending Provider Active Start: October 11, 2024 Team Status: Active Member Role Status Dates Jeremy Magallanes MD Primary Care Provider Active Start: October 12, 2024 Charlotte Alarcon CMA Attending Provider Active Start: October 12, 2024 Team Status: Inactive Member Role Status Dates Jeremy Magallanes MD Primary Care Provide r, Attending Provider Active Start: October 15, 2024 End: October 15, 2024 Goals (unrecognized section and content) Goals may be documented in a n alternate section Source Comments (unrecognize d section and content) In the event this informatio n is protected by the Federal Confidentiality of Alcohol and Drug Abuse Patient Records regulations: The Federal rules restrict any use of the information to criminally investigate or prosecute any alcohol or drug abuse patient.[facility] FOR RECORDS PERTAINING TO PATIENTS WHO [...] BE BASED ON THE PRIMARY CLINICAL RECORDS. [facility]. provides no warranty or guarantee of the accuracy or completeness of information in this document.
[2024-11-23 07:04] VITALS: BP 146/95; PULSE 70; TEMP 36.9; O2SAT 97
[2024-11-23 07:08] LABS: Glucometer 147 mg/dL (74-106)
[2024-11-23 07:56] VITALS: BP 132/89; PULSE 70; O2SAT 97
[2024-11-23 07:57] VITALS: BP 135/86; PULSE 72; O2SAT 96
[2024-11-23] MEDS: 0.9 % SODIUM CHLORIDE 10 ML SYRINGE - SALINE FLUSH INJ (08:00)
[2024-11-23] MEDS: BUPIVACAINE HCL 0.25% PF 25 MG/10 ML VIAL INJ (08:00)
[2024-11-23] MEDS: LIDOCAINE HCL 2% 400 MG/20 ML MDV 3 ML INJ (08:00)
[2024-11-23] MEDS: IOHEXOL 240 MG/ML - 10 ML VIAL 24 MG INJ (08:00)
--- NOTE | 2024-11-23 08:00 | W.PM.PROCNOT ---
Date of procedure: 11/23/24 Pre-op diagnosis: Pain due to lumbar stenosis with neurogenic claudication Post-op diagnosis: same as pre-op Procedure: Procedure: Bilateral L4-5 transforaminal epidural steroid injection Medications: Bupivacaine 0.25% 2cc, lidocaine 2% 1cc, depomedrol 80mg The patient was seen and examined in the preoperative holding area.? Informed consent was obtained and placed on the chart.? Patient was brought to the medical procedure unit and placed in the prone position where a timeout was completed verifying the correct patient, procedure site, position, and planned special equipment using sterile aseptic technique.? Under direct fluoroscopic visualization a 25-gauge Quincke tipped spinal needle was advanced at level left L4-5 to the designated neural foramen where contrast dye was injected to show adequate spread.? There was no evidence of vascular or adverse uptake.? Epidural spread was appreciated.? The above-mentioned injectate was then placed in a 1.5 mL aliquot preceded by negative aspiration.? The needle was removed. The same procedure, at the same level, was completed on the opposite side. ? Patient was taken to the postprocedural recovery area and monitored for an appropriate length of time before found suitable for discharge in the accompaniment of a responsible adult. Anesthesia: Local Surgeon: Zacarias Pike Pathology: none sent Condition: stable Disposition: no change
[2024-11-23] MEDS: METHYLPREDNISOLONE ACETATE 80 MG/ML VIAL INJ (08:01)
== END 2024-11-23 08:05 | disposition home or self-care (01) ==
LOC: SURGOUT 06:45
PROVIDERS: PCP Family Medicine; Visit Provider Anesthesiology
DX: M48.062 Spinal stenosis, lumbar region with neurogenic claudication (principal); M54.50 Low back pain, unspecified; E11.8 Type 2 diabetes mellitus with unspecified complications; Z79.84 Long term (current) use of oral hypoglycemic drugs
CPT/HCPCS: 36415; 64483; 82948; J0665; J1010; Q9966

== ENCOUNTER 2024-12-09 07:38 | Outpatient (OUT) | payer MEDICARE, SELFPAY ==
--- NOTE | 2024-12-09 07:55 | PM.CN ---
Consult Note: HPI Data of Consult Patient: known to practice within the last 3 years Requesting Physician: Janneth Villalta NP Primary Care Provider: Hannah Gallo MD Consult Narrative Reason for consult: f/u Narrative: Nicholas Ziegler a pleasant 64 year old male presents for evaluation of chronic back pain, hx of previous laminectomy and multilevel spondylosis as well as stenosis at L4-5. pt has failed to benefit from >6 weeks of provider guided HEP, heat, ice, tylenol, and cannot take NSAIDs. new dx of barretts esophagus and hiatal hernia. finds benefit to tylenol #3 and flexeril without side effects. denies falls or injury. pain today 4/10 aching stabbing increasing with standing walking, sitting in a hard chair, and sleep. recently underwent bilateral L4/5 TFESI with 80% improvement in pain and functional ability ongoing. cc:: CC: Janneth Villalta NP Review of Systems ROS Status of ROS 10 or more systems reviewed and unremarkable except as noted in history and below Musculoskeletal Reports: back pain PFSH PFSH Medical History Melanoma ?C43.9 - Malignant melanoma of skin, unspecified (ICD-10) Tobacco user ?Z72.0 - Tobacco use (ICD-10) Type 2 diabetes mellitus with hyperglycemia ?E11.65 - Type 2 diabetes mellitus with hyperglycemia (ICD-10) Acute exacerbation of chronic obstructive pulmonary disease (COPD) ?J44.1 - Chronic obstructive pulmonary disease with (acute) exacerbation (ICD-10) Lumbar degenerative disc disease ?M51.36 - Other intervertebral disc degeneration, lumbar region (ICD-10) Influenza ?J11.1 - Influenza due to unidentified influenza virus with other respiratory manifestations (ICD-10) Acute bronchospasm ?J98.01 - Acute bronchospasm (ICD-10) Postoperative pain, acute, shoulder ?G89.18 - Other acute postprocedural pain (ICD-10) ?M25.519 - Pain in unspecified shoulder (ICD-10) Fever ?R50.9 - Fever, unspecified (ICD-10) Acute pain of right shoulder ?M25.511 - Pain in right shoulder (ICD-10) Rotator cuff arthropathy of right shoulder ?M12.811 - Other specific arthropathies, not elsewhere classified, right shoulder (ICD-10) Diabetes ?E11.9 - Type 2 diabetes mellitus without complications (ICD-10) COPD (chronic obstructive pulmonary disease) ?J44.9 - Chronic obstructive pulmonary disease, unspecified (ICD-10) Surgical History H/O colonoscopy ?Z98.890 - Other specified postprocedural states (ICD-10) History of carpal tunnel release ?Z98.890 - Other specified postprocedural states (ICD-10) H/O lumbosacral spine surgery ?Z98.890 - Other specified postprocedural states (ICD-10) S/P right rotator cuff repair ?Z98.890 - Other specified postprocedural states (ICD-10) Family History Other Family history of COPD (chronic obstructive pulmonary disease) Family history of cancer Family history of hypertension Social History Within the past year, how often did you have a drink containing alcohol: never Score interpretation: A score less than 4 is consistent with normal alcohol consumption. Smoking status: Current every day smoker Non-prescribed substance use: denies use Previous occupational history: retired Highest level of school completed/degree received: GED or equivalent Are you now , , , , never or living with a partner: In a typical week, how many times do you talk on the telephone with family, friends, or neighbors: 3 or more times per week How often do you get together with friends or relatives: 3 or more times per week How often do you attend latter day or catholic services: never Do you belong to any clubs or organizations such as latter day groups unions, fraternal or athletic groups, or school groups: no Total score: 2 Score interpretation: A score of greater than or equal to 2 indicates the lowest level of social isolation. Little interest or pleasure in doing things: not at all Feeling down, depressed, or hopeless: not at all Feel stressed/tense/nervous/anxious/difficulty sleeping: not at all Do you think of yourself as: straight/heterosexual Gender Identity: male Meds Home Medications and Allergies Home Medications ?Medication ?Instructions ?Recorded ?Confirmed ?Type glipizide 5 mg-metformin 500 mg 1 tab PO BID 08/23/23 11/23/24 History tablet lancets (Accu-Chek Fastclix Lancet 09/08/23 09/08/23 History Drum) albuterol sulfate 90 mcg/actuation 2 puff inhalation Q6H PRN 06/01/24 11/23/24 History aerosol inhaler shortness of breath or wheezing acetaminophen 300 mg-codeine 30 mg See Rx Instructions .Route 09/09/24 11/23/24 Rx tablet .COMPLEX PRN pain #180 tabs acetaminophen 300 mg-codeine 30 mg See Rx Instructions .Route 12/01/24 Rx tablet .COMPLEX PRN pain #180 tabs Allergies Allergy/AdvReac Type Severity Reaction Status Date / Time fentanyl Allergy Intermediate Hives Verified 11/23/24 07:07 ofloxacin Allergy Intermediate HIVES Verified 11/23/24 07:07 olodaterol (From Stiolto Allergy Intermediate SHORTNESS Verified 11/23/24 07:07 Respimat) OF BREATH tiotropium (From Stiolto Allergy Intermediate SHORTNESS Verified 11/23/24 07:07 Respimat) OF BREATH zafirlukast Allergy Intermediate Hives Verified 11/23/24 07:07 Iodinated Contrast Media Allergy Unknown Unknown Verified 11/23/24 07:07 ibuprofen (From Motrin) AdvReac Mild Hives Verified 11/23/24 07:07 Exam Constitutional Documenting provider has reviewed patient's vital signs: yes Common normals: no apparent distress, oriented x3, healthy appearing, alert and well nourished General appearance: cooperative HENMT Common normals: normocephalic, hearing grossly normal bilaterally and moist oral mucous membranes Head and scalp: normocephalic Eye Common normals: PERRL Pupil: PERRL Neck & C-Spine Common normals: full ROM General: normal visual inspection Chest Common normals: inspection of chest normal Respiratory Common normals: normal respiratory effort, no retractions and no use of accessory muscles Back & Pelvis Lumbar spine/lower back: ROM limited, pain with ROM and straight leg raise negative bilaterally Sacroiliac joints: SI joints normal Other: sensation intact BLE strength 5/5 in BLE positive axial facet loading Extremity Common normals: normal to inspection and full ROM Neuro Common normals: oriented x3 and gait normal Sensorium/orientation: alert Psych Common normals: mental status grossly normal, thought process normal, cooperative, affect normal, speech normal and activity/motor behavior normal Speech: normal speech Thought process: normal thought process Results Additional Findings Additional findings: If on a controlled substance or opioids, I have checked an [place]AR[place] report on this patient and there are no aberrancies noted in the prescribing history.??If on a controlled substance or opioid a drug screen was completed and reviewed within the last year, and if there has not been a drug screen completed we ordered one today to monitor higher risk, state monitored pain medication use. As part of providing excellent, safe, comprehensive care, the following was completed at our patient's visit: 1. A medication reconciliation and review to ensure accurate knowledge of current/active medications, including asking our patients to inform us about any [id number] medications or herbal remedies/nutritional supplements/alternative remedies. 2. A review to specifically ensure our patients have had annual screening for screening for depression, screening for tobacco use, and screening for unhealthy alcohol use. For concerning screenings had a discussion with the patient, provided patient education, and recommended follow-up with primary care provider when appropriate. If patient noted with a risk of falling, they received education on strength, gait, and balance training to prevent future risk of falling. Portions of this note may have been carried over from the previous visit and updated as appropriate. Please note this office utilizes paper charting in addition to the electronic medical record. A list of current medications, vitals, and PMH is available there as the clinical staff outside of myself do not have access to [employer] charting during the clinic day operations. As part of providing quality comprehensive care the current medications, vitals, and PMH were reviewed in the paper chart. Assessment and Plan Assessment and Plan (1) Lumbar stenosis with neurogenic claudication: Assessment and Plan: 11/23/24 bilateral L4/5 TFESI >50% improvement in NC symptoms (2) Failed back syndrome: (3) Chronic prescription opiate use: Assessment and Plan: I feel these medications are improving the patient's quality of life and allow them to tolerate activities of daily living as well as participate in recreational activity.? The patient does not report intolerable side effects. The patient is NOT opioid naive and non-pharmacologic and non-opioid treatment has failed to significantly relieve the patient's pain and improve functionality. The patient has a diagnosis that is related to a somatic or visceral pain etiology. ? ?? I reviewed with the patient the potential risks and side effects with the use of? opioid medications including but not limited to respiratory depression,? sedation, and even . Within the last 12 months I have verified the patient has access to naloxone should? these effects occur. The patient was advised to let? their family know they had Naloxone in case they would need to administer? the medication. I advised the patient to avoid the use of any other? sedation substances including alcohol, THC, and benzodiazepines while? taking opioid medications due to the risk of compounding side effects and? detrimental outcomes. 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 ?? A drug screen was completed within the last year, and no aberrancies were noted regarding their use of controlled substances. The patient understands they are subject to the terms and conditions of the pain contract that they have signed. ? ?? I have checked an OARRS report on this patient today and there are no aberrancies noted in the prescribing history.? (4) Lumbar spondylosis: Assessment and Plan: failed prior bilateral L4-5 L5-S1 facet RFA for axial low back pain (5) Myalgia, other site: Plan 64 year old male with chronic low back pain post lumbar laminectomy, finds benefit to lumbar ESIs and medication management. has failed to benefit from PT and provider guided HEP, heat, ice, tylenol, and cannot take NSAIDs. continue flexeril 10mg TID PRN pain/spasms, continue tylenol #3 1-2 tabs TID PRN moderate to severe pain. update UDS for medication monitoring. continue HEP as tolerated. declining scs trial at this time. f/u 3 months, sooner if needed
== END 2024-12-09 07:39 | disposition home or self-care (01) ==
PROVIDERS: PCP Family Medicine; Visit Provider Nurse Practitioner
DX: M48.062 Spinal stenosis, lumbar region with neurogenic claudication (principal); M96.1 Postlaminectomy syndrome, not elsewhere classified; Z79.891 Long term (current) use of opiate analgesic; M47.816 Spondylosis without myelopathy or radiculopathy, lumbar region; M79.18 Myalgia, other site
CPT/HCPCS: G0463

== ENCOUNTER 2024-12-22 09:01 | Outpatient (OUT) | payer MEDICARE, MEDICAID, SELFPAY ==
[2024-12-22 09:38] LABS: Basophils Percent Auto 0.6 % (0.2-2.0); Eosinophils Absolute Auto 0.1 10^3/uL (0.0-0.7); Hematocrit 47.8 % (42.0-54.0); Hemoglobin 16.6 g/dL (14.0-18.0); Immature Granulocytes Abs Auto 0.01 10^3/uL (0.00-0.03); Immature Granulocytes Pct Auto 0.2 % (0.0-0.5); Lymphocytes Absolute Auto 2.1 10^3/uL (1.2-3.8); Lymphocytes Percent Auto 31.7 % (20.5-60.0); Mean Corpuscular HGB Conc 34.7 g/dL (29.9-35.2); Mean Corpuscular Hemoglobin 30.4 pg (25.9-34.0); Mean Corpuscular Volume 87.5 fL (80.0-94.0); Mean Platelet Volume 8.8 fL (9.5-13.5); Monocytes Absolute Auto 0.7 10^3/uL (0.3-0.8); Monocytes Percent Auto 10.7 % (1.7-12.0); Neutrophils Absolute Auto 3.6 10^3/uL (1.4-6.5); Neutrophils Percent Auto 54.8 % (43.0-75.0); Platelet Count 294 10^3/uL (150-450); Red Blood Count 5.46 10^6/uL (4.70-6.10); Red Cell Distribution Width 13.4 % (11.0-15.0); White Blood Count 6.5 10^3/uL (4.0-11.0)
[2024-12-22 09:48] LABS: Creatinine Urine Random 79.28 mg/dL (20.00-300.00); Microalbum Creatinine Ratio Ur 25.2 mg/g (0.0-29.9)
[2024-12-22 09:52] LABS: Estimated Average Glucose 192 mg/dL; Glycohemoglobin A1C 8.3 % (4.5-6.2)
[2024-12-22 09:58] LABS: Alanine Aminotransferase 46 U/L (16-63); Albumin Globulin Ratio 1.1; Albumin Level 3.7 g/dL (3.4-5.0); Alkaline Phosphatase 103 U/L (46-116); Anion Gap 11.5; Aspartate Amino Transferase 18 U/L (15-37); BUN Creatinine Ratio 13.3; Bilirubin Total 0.2 mg/dL (0.2-1.0); Calcium 9.3 mg/dL (8.5-10.1); Carbon Dioxide 29.7 mmol/L (21.0-32.0); Chloride 102 mmol/L (98-107); Estimated GFR (African America >60 (>=60 mL/min/1.73m^2); Estimated GFR (Non-African Ame >60 (>=60 mL/min/1.73m^2); Globulin 3.4 g/dL; Glucose 74 mg/dL (74-106); Potassium 4.2 mmol/L (3.5-5.1); Sodium 139 mmol/L (136-145); TSH W/ REFLEX FT4 1.532 uIU/mL (0.358-3.740); Total Protein 7.1 g/dL (6.4-8.2)
[2024-12-22 10:38] LABS: Prostate Specific Antigen Scrn 0.89 ng/mL (<=4.00)
== END 2024-12-22 09:02 | disposition home or self-care (01) ==
LOC: LAB 09:03
PROVIDERS: PCP Family Medicine; Visit Provider Family Medicine
DX: E11.9 Type 2 diabetes mellitus without complications (principal); T14.8XXA Other injury of unspecified body region, initial encounter; N40.0 Benign prostatic hyperplasia without lower urinary tract symptoms; Z12.5 Encounter for screening for malignant neoplasm of prostate
CPT/HCPCS: 36415; 80053; 82043; 82570; 83036; 84443; 85025; G0103

== ENCOUNTER 2024-12-22 22:43 | Emergency (ER) | payer MEDICARE, SELFPAY ==
[2024-12-22 22:48] VITALS: BP 134/82; PULSE 122; TEMP 37.1; O2SAT 93; BMI 32.0
[2024-12-22] MEDS: ONDANSETRON PF 4 MG/2 ML VIAL IV (23:08)
[2024-12-22] MEDS: 0.9 % SODIUM CHLORIDE 1,000 ML 1000 ML IV (23:08)
--- NOTE | 2024-12-22 23:22 | ED_ITS ---
HPI - Nausea/Vomiting/Diarrhea General Chief complaint: Nausea/Vomiting/Diarrhea Stated complaint: NAUSEA, ABDOMINAL PAIN Time Seen by Provider: 12/22/24 23:03 Source: patient Mode of arrival: walk-in Limitations: no limitations History of Present Illness HPI Narrative: cigarette smoker. States he was seen by his PCP today for his lungs and prescribed prednisone and Cefdinir. Around 4pm became ill with recurrent vomiting and diarrhea. Nonbloody. Also complains of abdominal pain. no fever Related Data Home Medications ?Medication ?Instructions ?Recorded ?Confirmed glipizide 5 mg-metformin 500 mg 1 tab PO BID 08/23/23 12/22/24 tablet lancets (Accu-Chek Fastclix Lancet 09/08/23 09/08/23 Drum) albuterol sulfate 90 mcg/actuation 2 puff inhalation Q 6H PRN 06/01/24 11/23/24 aerosol inhaler shortness of breath or wheez ing cefdinir 300 mg capsule 300 mg PO DAILY 12/22/2402/10 Previous Rx's ?Medication ?Instructions ?Recorded acetaminophen 300 mg-codeine 30 mg See Rx Instructions .Route 09/09/24 tablet .COMPLEX PRN pain #180 tabs acetaminophen 300 mg-codeine 30 mg See Rx Instructions .Route 12/01/24 tablet .COMPLEX PRN pain #180 tabs Allergies Allergy/AdvReac Type Severity Reaction Status Date / Time fentanyl Allergy Intermediate Hives Verified 11/23/24 07:07 ofloxacin Allergy Intermediate HIVES Verified 11/23/24 07:07 olodaterol (From Stiolto Allergy Intermediate SHORTNESS Verified 11/23/24 07:07 Respimat) OF BREATH tiotropium (From Stiolto Allergy Intermediate SHORTNESS Verified 11/23/24 07:07 Respimat) OF BREATH zafirlukast Allergy Intermediate Hives Verified 11/23/24 07:07 Iodinated Contrast Media Allergy Unknown Unknown Verified 11/23/24 07:07 ibuprofen (From Motrin) AdvReac Mild Hives Verified 11/23/24 07:07 Review of Systems ROS Status of ROS 10 or more systems reviewed and unremark able except as noted in history and below [facility] PFS Medical History Melanoma ?C43.9 - Malignant melanoma of skin, unspecified (ICD-10) Tobacco user ?Z72.0 - Tobacco use (ICD-10) Type 2 diabetes mellitus with hyperglycemia ?E11.65 - Type 2 diabetes mellitus with hyperglycemia (ICD-10) Acute exacerbation of chronic obstructive pulmonary disease (COPD) ?J44.1 - Chronic obstructive pulmonary disease with (acute) exacerbation (ICD-10) Lumbar degenerative disc disease ?M51.36 - Other intervertebral disc degeneration, lumbar region (ICD-10) Influenza ?J11.1 - Influenza due to unidentified influenza virus with other respiratory manifestations (ICD-10) Acute bronchospasm ?J98.01 - Acute bronchospasm (ICD-10) Postoperative pain, acute, shoulder ?G89.18 - Other acute postprocedural pain (ICD-10) ?M25.519 - Pain in unspecified shoulder (ICD-10) Fever ?R50.9 - Fever, unspecified (ICD-10) Acute pain of right shoulder ?M25.511 - Pain in right shoulder (ICD-10) Rotator cuff arthropathy of right shoulder ?M12.811 - Other specific arthropathies, not elsewhere classified, right shoulder (ICD-10) Diabetes ?E11.9 - Type 2 diabetes mellitus without complications (ICD-10) COPD (chronic obstructive pulmonary disease) ?J44.9 - Chronic obstructive pulmonary disease, unspecified (ICD-10) Surgical History H/O colonoscopy ?Z98.890 - Other specified postprocedural states (ICD-10) History of carpal tunnel release ?Z98.890 - Other specified postprocedural states (ICD-10) H/O lumbosacral spine surgery ?Z98.890 - Other specified postprocedural states (ICD-10) S/P right rotator cuff repair ?Z98.890 - Other specified postprocedural states (ICD-10) Family History Other Family history of COPD (chronic obstructive pulmonary disease) Family history of cancer Family history of hypertension Social History Within the past year, how often did you have a drink containing alcohol: never Score interpretation: A score less than 4 is consistent with normal alcohol consumption. Smoking status: Current every day smoker Non-prescribed substance use: denies use Previous occupational history: retired Highest level of school completed/degree received: GED or equivalent Are you now , , , , never or living with a partner: In a typical week, how many times do you talk on the telephone with family, friends, or neighbors: 3 or more times per week How often do you get together with friends or relatives: 3 or more times per week How often do you attend orthodox or temple services: never Do you belong to any clubs or organizations such as orthodox groups unions, [employer] or athletic groups, or school groups: no Total score: 2 Score interpretation: A score of greater than or equal to 2 indicates the lowest level of social isolation. Little interest or pleasure in doing things: not at all Feeling down, depressed, or hopeless: not at all Feel stressed/tense/nervous/anxious/difficulty sleeping: not at all Do you think of yourself as: straight/heterosexual Gender Identity: male Exam Constitutional Vital Signs, click to edit/add: Last Vital Signs Temp 98.5 F 12/23/24 02:28 Pulse 99 H 12/23/24 02:28 Resp 20 12/23/24 02:28 BP 114/75 12/23/24 02:28 Pulse Ox 92 L 12/23/24 02:28 O2 Del Method Room Air 12/23/24 02:28 O2 Flow Rate 2 12/23/24 00:45 Common normals: no apparent distress, average body habitus, oriented x3, no limitations, healthy appearing, alert and well nourished [facility] Common normals: normocephalic and head/scalp atraumatic Eye Common normals: PERRL and EOMs intact bilaterally Respiratory Common normals: normal respiratory effort, no retractions, no use of accessory muscles and clear to auscultation bilaterally Cardio Common normals: regular rate, regular rhythm, S1 normal heart sound and S2 normal heart sound GI Other: mod epigastric tenderness. no guarding. abdomen is soft Extremity Common normals: normal to inspection and full ROM Neuro Common normals: oriented x3, CN's II-XII intact bilaterally, moves all extremities and no focal motor deficits Psych Appearance: grossly normal Course Vital Signs Vital signs: Vital Signs Temperature 98.8 F 12/22/24 22:48 Pulse Rate 122 H 12/22/24 22:48 Respiratory Rate 18 12/22/24 22:48 Blood Pressure 134/82 12/22/24 22:48 Pulse Oximetry 93 L 12/22/24 22:48 Oxygen Delivery Method Room Air 12/22/24 22:48 Temperature 98.5 F 12/23/24 02:28 Pulse Rate 99 H 12/23/24 02:28 Respiratory Rate 20 12/23/24 02:28 Blood Pressure 114/75 12/23/24 02:28 Pulse Oximetry 92 L 12/23/24 02:28 Oxygen Delivery Method Room Air 12/23/24 02:28 Oxygen Delivery Flow Rate 2 12/23/24 00:45 MDM - Nausea/Vomiting/Diarrhea MDM Narrative Medical decision making narrative: patient seen by his PCP and prescribed steroids and cefdinir for lung illness. Patient then developed recurrent vomiting and diarrhea and presented to ER. Found to have diffuse mild wheeze on exam. No complaint of dyspnea but of recurrent nausea.Patient is diabetic and RBS 278. latic acid elevated. Bicarb low normal. patient hydrated and treated with anti emetics. Patient feeling better but his lactic remained elevated on recheck. Patient offered admision but did not want to stay as he was feeling better. Given extra liter of fluid and then discharged with zofran. HR decreased from 120s down to 99. Lab Data Labs: Lab Results 12/22/24 12/23/24 Range/Units 22:55 01:55 WBC 14.4 H (4.0-11.0) 10^3/uL RBC 6.36 H (4.70-6.10) 10^6/uL Hgb 18.9 H (14.0-18.0) g/dL Hct 56.3 H (42.0-54.0) % MCV 88.5 (80.0-94.0) fL MCH 29.7 (25.9-34.0) pg MCHC 33.6 (29.9-35.2) g/dL RDW 13.5 (11.0-15.0) % Plt Count 319 (150-450) 10^3/uL MPV 9.4 L (9.5-13.5) fL Seg Neuts % (Manual) 92.0 H (43.0-75.0) Lymphocytes % (Manual) 1.0 L (20.5-60.0) % Monocytes % (Manual) 7.0 (1.7-12.0) % Eosinophils % (Manual) 0.0 L (0.9-7.0) % Basophils % (Manual) 0.0 L (0.2-2.0) % Neutrophils # (Manual) 13.24 H (1.4-6.5) 10^3/uL Lymphocytes # (Manual) 0.14 L (1.20-3.80) 10^3/uL Monocytes # (Manual) 1.00 H (0.30-0.80) 10^3/uL Eosinophils # (Manual) 0.00 (0.00-0.70) 10^3/uL Basophils # (Manual) 0.00 (0.00-0.10) 10^3/uL Sodium 133 L (136-145) mmol/L Potassium 4.6 (3.5-5.1) mmol/L Chloride 99 (98-107) mmol/L Carbon Dioxide 21.7 (21.0-32.0) mmol/L Anion Gap 16.9 BUN 15.0 (7.0-18.0) mg/dL Creatinine 1.24 (0.70-1.30) mg/dL Est GFR ( Amer) >60 (>=60 mL/min/1.73m^2) Est GFR (Non-Af Amer) 59 L (>=60 mL/min/1.73m^2) BUN/Creatinine Ratio 12.1 Glucose 278 H (74-106) mg/dL Lactate 2.3 H* 2.6 H* (0.4-2.0) mmol/L Calcium 9.7 (8.5-10.1) mg/dL Total Bilirubin 0.4 (0.2-1.0) mg/dL AST 17 (15-37) U/L ALT 46 (16-63) U/L Alkaline Phosphatase 121 H (46-116) U/L Troponin I High Sens <4.0 L (4.0-76.1) pg/mL Total Protein 7.9 (6.4-8.2) g/dL Albumin 4.3 (3.4-5.0) g/dL Globulin 3.6 g/dL Albumin/Globulin Ratio 1.2 Lipase 31.0 (16.0-77.0) U/L Discharge Plan Discharge Chief Complaint: Nausea/Vomiting/Diarrhea Clinical Impression: Gastroenteritis, Acute exacerbation of chronic obstructive pulmonary disease Patient Disposition: Home, Self-Care Condition: Good Mode of Transportation: Private Vehicle Prescriptions / Home Meds: No Action (DME) lancets [Accu-Chek Fastclix Lancet Drum] Misc MISCELLANEOUS acetaminophen-codeine 300-30 mg tablet See Rx Instructions .ROUTE .COMPLEX PRN (Reason: pain) Qty: 180 0RF Rx Instructions: 1-2 tabs PO TID,PRN glipizide-metformin 5-500 mg tablet 1 tab PO BID albuterol sulfate 90 mcg/actuation HFA aerosol inhaler 2 puff INHALATION Q6H PRN (Reason: shortness of breath or wheezing) acetaminophen-codeine 300-30 mg tablet See Rx Instructions .ROUTE .COMPLEX PRN (Reason: pain) Qty: 180 0RF Rx Instructions: 1-2 TABS PO TID PRN #180 MUST LAST 30 DAYS cefdinir 300 mg capsule 300 mg PO DAILY Print Language: Faroese Instructions: Gastroenteritis (ED), COPD (Chronic Obstructive Pulmonary Disease) (ED) Additional Instructions: follow up with your doctor for recheck in 2-3 days Referrals: Hannah Gallo MD [Primary Care Provider, Family Practice] - 1 week Discharge Date/Time: 12/23/24 03:42
[2024-12-22 23:43] LABS: Hematocrit 56.3 % (42.0-54.0); Hemoglobin 18.9 g/dL (14.0-18.0); Mean Corpuscular HGB Conc 33.6 g/dL (29.9-35.2); Mean Corpuscular Hemoglobin 29.7 pg (25.9-34.0); Mean Corpuscular Volume 88.5 fL (80.0-94.0); Mean Platelet Volume 9.4 fL (9.5-13.5); Platelet Count 319 10^3/uL (150-450); Red Blood Count 6.36 10^6/uL (4.70-6.10); Red Cell Distribution Width 13.5 % (11.0-15.0); White Blood Count 14.4 10^3/uL (4.0-11.0)
[2024-12-22] MEDS: METHYLPREDNISOLONE SOD SUCC PF 125 MG/2 ML VIAL IVP (23:59)
[2024-12-23 00:05] LABS: Alanine Aminotransferase 46 U/L (16-63); Albumin Globulin Ratio 1.2; Albumin Level 4.3 g/dL (3.4-5.0); Alkaline Phosphatase 121 U/L (46-116); Anion Gap 16.9; Aspartate Amino Transferase 17 U/L (15-37); BUN Creatinine Ratio 12.1; Bilirubin Total 0.4 mg/dL (0.2-1.0); Calcium 9.7 mg/dL (8.5-10.1); Carbon Dioxide 21.7 mmol/L (21.0-32.0); Chloride 99 mmol/L (98-107); Estimated GFR (African America >60 (>=60 mL/min/1.73m^2); Estimated GFR (Non-African Ame 59 (>=60 mL/min/1.73m^2); Globulin 3.6 g/dL; Glucose 278 mg/dL (74-106); Potassium 4.6 mmol/L (3.5-5.1); Sodium 133 mmol/L (136-145); Total Protein 7.9 g/dL (6.4-8.2); Troponin I High Sensitivity <4.0 pg/mL (4.0-76.1)
[2024-12-23 00:10] VITALS: PULSE 104; O2SAT 93
[2024-12-23 00:10] LABS: Lactate/Lactic Acid 2.3 mmol/L (0.4-2.0)
[2024-12-23] MEDS: ALBUTEROL SULFATE 2.5 MG/3 ML VIAL NEB IH (00:10)
[2024-12-23 00:16] LABS: Lymphocytes Absolute Manual 0.14 10^3/uL (1.20-3.80); Segmented Neut Absolute Manual 13.24 10^3/uL (1.4-6.5)
[2024-12-23] MEDS: 0.9 % SODIUM CHLORIDE 1,000 ML 999 ML IV ×2 (00:25→02:35)
--- NOTE | 2024-12-23 00:38 | PC.NURSE ---
Lungs coarse throughout
[2024-12-23 00:45] VITALS: O2SAT 88
--- NOTE | 2024-12-23 00:46 | PC.NURSE ---
Sat down to88 % when he is resting. Placed on 2 L n/c
[2024-12-23 02:21] LABS: Lactate/Lactic Acid 2.6 mmol/L (0.4-2.0)
[2024-12-23 02:28] VITALS: BP 114/75; PULSE 99; TEMP 36.9; O2SAT 92
== END 2024-12-23 03:42 | disposition home or self-care (01) ==
PROVIDERS: Emergency Provider Internal Medicine; PCP Family Medicine
DX: K52.9 Noninfective gastroenteritis and colitis, unspecified (principal); J44.1 Chronic obstructive pulmonary disease with (acute) exacerbation; E11.9 Type 2 diabetes mellitus without complications; T14.8XXA Other injury of unspecified body region, initial encounter; N40.0 Benign prostatic hyperplasia without lower urinary tract symptoms; Z12.5 Encounter for screening for malignant neoplasm of prostate; F17.210 Nicotine dependence, cigarettes, uncomplicated; Z79.84 Long term (current) use of oral hypoglycemic drugs; R06.2 Wheezing; K57.30 Diverticulosis of large intestine without perforation or abscess without bleeding
CPT/HCPCS: 36415; 71045; 74176; 80053; 82043; 82570; 83036; 83605; 83690; 84443; 84484; 85007; 85025; 85027; 94640; 96361; 96374; 96375; 99285; G0103; J2405; J2919

== ENCOUNTER 2025-02-24 07:44 | Outpatient (OUT) | payer MEDICARE, MEDICAID, SELFPAY ==
--- OUTSIDE RECORDS SUMMARY | 2024-11-23 | XMS_ITS ---
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 Name Role Phone Gieditis , Zacarias Miranda Attending Unavailable Giedraitis , Andrius Miranda Attending Unavailable Giedraitis , Andrius Ruth Attending Unavailable Giedraitis , Andrius Ruth Attending Unavailable Giedraitis , Andrius Miranda Attending Unavailable CELINE VAZ Attending Unavailable HANNAH MAGALLANES Referring Unavailable HANNAH MAGALLANES Primary Care Unavailable Hannah Magallanes Primary Care Unavailable Elaine, Bill Jovel Attending Unavailable GrilliBill lee Admitting Unavailable CHIKIS, Ligia Boggs Attending Unavailable CHIKIS, Ligia Boggs Attending Unavailable CHIKIS, Ligia T Admitting Unavailable CHIKIS, Ligia T Attending Unavailable CHIKIS, Ligia oBggs Admitting Unavailable TIMMISMALATHI H Attending Unavailable HANNAH MAGALLANES Referring Unavailable PROBLEMS DATE TYPE CONDITION / CODE ATTENDING STATUS [facility] 05/27/2024 Unknown Dysphagia, unspecified / R13.10(ICD-10) CELINE VAZ Active [facility] 05/27/2024 Unknown Melena / K92.1(ICD-10) CELINE VAZ Active [facility] 05/27/2024 Unknown Gastro-esophagea l reflux disease without esophagitis / K21.9(ICD-10) CELINE VAZ Active [facility] 05/27/2024 Unknown postive cologuar d / UNK(Unknown) CELINE VAZ Active [facility] 05/27/2024 Unknown Difficulty Swall owing / FREETEXT(AOF) CELINE VAZ A Active [facility] 05/27/2024 Unknown Nausea / FREETEXT(AOF) CELINE VAZ Active [facility] 05/27/2024 Unknown Vomiting / FREETEXT(AOF) CELINE VAZ Active [facility] 05/27/2024 Unknown Abdominal Pain / FREETEXT(AOF) CELINE VAZ Active [facility] PROCEDURES No Procedure Records Found RESULTS PROGRESS NOTE-NURSE Observed: 11/04/2024 4:14 PM Status: F Source: [facility] Progress Note-Nurse LVM to talk about A1C level, he will be getting a one year card but will have to talk with his PCP about getting that number down. HGBA1C Collected: 11/04/2024 12:34 PM Status: F Source: [facility] TYPE CODE TESTS RESULT OUT OF RANGE REFERENCE UNITS LAB 4548-4(LOINC) HEMOGLOBIN A1C/HEMOGLOBIN. TOTAL:MFR:PT:BL D:QN: 9.5 High <=5.9 % Performed By: #### [id number] #### [facility] [address] [place] [address] PATHOLOGY REQUEST FOR LAB GABE Collected: 06/03/2024 10:36 AM Status: F Source: [facility] Order Comment: PATHOLOGY GI SPECIMEN TYPE CODE TESTS RESULT OUT OF RANGE REFERENCE UNITS LAB [facility] Pathology Request for Lab Gabe Result Comment: See report. Scanned copy available in EMR. PERFORMED BY: [place] [address] PATHOLOGIST WARP PICKER JON PONCE M.D. Performed By: #### [facility] #### [facility] [address] [place] [address] [place] CNPN Observed: 05/14/2024 12:00 AM Status: COMPLETED Source[facility] Telephone ([id number]) ERIC CRAIG ([id number]) 1960 M Date Time Provider Department 05/14/24 AMEYA MERAZ [id number] During your visit today, we recorded the following information about you: Keily Martines 05/14/2024 1:11 PM Signed Referral was sent from [facility] for new consult with Dr Meraz Please see below and advise Kayla Morley 05/15/2024 11:54 AM Addendum Consult from Dr. Hannah Magallanes (Internal Medicine) [facility] Referral received from PCP [...] Reviewed Reason for Visit: New Patient [172] [employer] Consultant - Other [3602] Problem List As Of Date: 05/14/2024 (None) Encounter Status:Closed by KAYLA MORLEY on 05/21/24 ALLERGIES DATE TYPE / CODE NAME / CODE REACTION SEVERITY SOURCE 06/03/2019 DRUG INGREDI~NON-CBO RD/[id number](SN OMED CT) IBUPROFEN Hives~[facility]ash Low [facility] 06/03/2019 Drug Class~NON-CBORD /[id number](SNOM ED CT) IODINATED CONTRAST MEDIA Hives~Rash Low [facility] ENCOUNTERS ADMIT/DISCHARGE ACCOUNT NUMBER ADMITTING ENCOUNTER CLASS LOCATION SOURCE 11/23/2024/ 025 [id number] [facility] [facility] [place] [facility] 11/04/2024 [id number] Ligia DIOP Ambulatory FTBuilding :F T LAB [facility] 11/04/2024/ 025 [id number] Ligia DIOP Ambulatory FTMCBuilding:F T LAB [facility] 11/04/2024/ 025 [id number] Ambulatory [facility]ness[facility] ng:Occupationa l Health and Wellness [facility] 08/17/2024/ 024 [id number] Ambulatory PM [place] [facility] 06/03/2024/ 024 [id number] Bill [facility] 05/27/2024/ 024 [id number] Ambulatory Buildin[address] [place] [address] Ambulatory [facility] 05/18/2024/ 024 [id number] Ambulatory PM [place]PM [facility] 04/07/2024/ 024 [id number] Ambulatory Building:[facility] 04/06/2024/ 024 [id number] Ambulatory PM [place]PM [facility] 03/16/2024/ 024 [id number] Ambulatory PM [place]PM [facility] PAYERS ENCOUNTER GUARANTOR PAYER SUBSCRIBER SOURCE 11/23/2024 Eric Simmons: [id number] [facility] [place] [address] Primary Insurance:MedicareP jewell Number: Effective Date:1017-67-31Gyna Name:[place] [address]DF: Eric ForresterOB: [id number] [place] [address] [facility] 11/23/2024 Secondary Insurance:MedicaidP olicy Number: Effective Date:1597-60-46Mfro Name:[facility] [address] [address]UN: Eric Maldonado MaciejpieDOB: [id number] [place], [place] [facility] 11/04/2024 ERIC TIPPIEDOB: MARTIN AVETel: ~(539 (HP) Primary Insurance:MEDICAREP olicy Number: [id number] e Date:9506-87-01[address], [place] [address]HM: ERIC [facility] 11/04/2024 ERIC COONPIEDOB: MARTIN AVETel: ~(081 (HP) Primary Insurance:SELF PAYPolicy Number: Effective Date:1799-08-18 [facility]/17/[facility] Eric CoonpieDOB: [place] Primary Insurance:MedicareP olicy Number: Effective Date:8675-04-60Klts Name:[facility] [address], [place] [address]AS: Eric Maldonado TippieDOB: [id number] [place] [facility] 08/17/2024 Secondary Insurance:MedicaidP olicy Number: Effective Date:4014-21-40Plgy Name:[facility] [address] [address]MN: Eric Joel CoonpieDOB: [id number] [place] [address] [facility] 05/27/2024 ERIC COONPIEDOB: [place], [place] [address]Nyh: (HP) Primary Insurance:MEDICARE PART A & BPolicy Number: [id number] e Date:2013-03-19 ERIC Maldonado TIPPIEDOB: [id number] [place], [place] [address]Iel: (HP) [facility] 05/27/2024 Secondary Insurance:[facility]- ONLYPolicy Number: [id number] ve Date:2024-01-18 ERIC Maldonado TIPPIEDOB: [id number] [place], [place] [address]Ihy: (HP) [facility] 05/18/2024 Eric J TippieDOB: [place], [place] Primary Insurance:MedicareP olicy Number: Effective Date:3015-64-53Rgmq Name:MED [address], [place] [address]PY: Eric Maldonado TippieDOB: [id number] [place] [address] [facility] 05/18/2024 Secondary Insurance:MedicaidP olicy Number: Effective Date:0876-73-82Ibcr Name:[facility] [address] [address]OW: Eric Maldonado TippieDOB: [id number] [place] [facility] 04/07/2024 ERIC Maldonado TIPPIEDOB: [facility] [address]Ida: (HP) Primary Insurance:MEDICAREP olicy Number: [id number] e Date:1119-91-28Wesk Name:Medicare WALTER J TIPPIEDOB: [id number] [place] [address] [facility] 04/07/2024 Secondary Insurance:[place] Number: [id number] ve Date:2021-03-19 ERIC Joel TIPPIEDOB: [id number] [facility] [place] [address] [facility] 04/06/2024 Eric J TippieDOB: [place] [address] Primary Insurance:MedicareP olicy Number: Effective Date:3174-36-83Aezp Name:[facility] [address] [place] [address]ZJ: Eric Maldonado TippieDOB: [id number] [place] [id number] [facility] 04/06/2024 Secondary Insurance:MedicaidP olicy Number: Effective Date:1122-30-72Lbsl Name:[facility] [address] [address]TK: Eric Maldonado TippieDOB: [id number] [place] [id number] [facility] 03/16/2024 Eric Maldonado TippieDOB: [place] [id number] Primary Insurance:MedicareP olicy Number: Effective Date:9324-46-62Scab Name:[facility] [address] [address]FS: Eric Maldonado TippieDOB: [id number] [place] [id number] [facility] 03/16/2024 Secondary Insurance:MedicaidP olicy Number: Effective Date:4599-47-15Sgia Name:[facility] [address] [address]XI: Eric Maldonado TippieDOB: [id number] [place] [id number] [facility]
--- NOTE | 2025-02-24 07:46 | CT_ITS ---
The [address] [address] Patient Name: ERIC CRAIG MRN: [id number] date: 1960 Sex: M Assigned Patient Location: CT Current Patient Location: CT Accession/Order Number: [id number] Exam Date: 02/24/2025 08:41 Report Date: 02/24/2025 08:51 At the request of: JEREMY MAGALLANES MD Procedure: CT lung screening low-dose LOW-DOSE SCREENING CHEST CT WITHOUT CONTRAST COMPARISON: 03/21/2024 CLINICAL DATA: Former smoker for over 50 years. Cough and shortness of breath. Spiral axial unenhanced low-dose images were obtained through the chest. Images were reviewed using both narrow and wide window settings. This CT exam was performed using one or more following dose reduction techniques: Automated exposure control, adjustment of the mA and/or kV according to patient size, or use of iterative reconstruction technique. The heart is normal in size. No pericardial effusion is present. No aortic aneurysm is seen. There is minor plaque at the aortic arch. There are few small nonpathologic lymph nodes. Minor gynecomastia is seen. Air is present throughout the esophagus, similar to the prior. Dextroscoliotic curvature and degenerative changes are visualized at the spine. No consolidation, pleural effusion or pneumothorax is identified. There is no developing pulmonary nodularity. Limited cuts through the upper abdomen show no contributory findings. CT/CT lung screening low-dose IMPRESSION: NO ACUTE FINDINGS OR DEVELOPING PULMONARY NODULARITY. Lung RADS category 1 - negative Twelve-month low-dose CT follow-up suggested. Impression dictated by: Otilia Nunez M.D. 02/24/2025 8:51 AM Dictation Location: [place] [address] Electronically authenticated by: [id number] Y Date: 02/24/2025 08:51
== END 2025-02-24 07:45 | disposition home or self-care (01) ==
LOC: CT 07:44
PROVIDERS: PCP Family Medicine; Visit Provider Family Medicine
DX: R05.3 Chronic cough (principal); Z87.891 Personal history of nicotine dependence
CPT/HCPCS: 71271

== ENCOUNTER 2025-03-03 07:46 | Outpatient (OUT) | payer MEDICARE, SELFPAY ==
--- OUTSIDE RECORDS SUMMARY | 2025-03-03 08:03 | XMS_ITS | CCD ---
Author Organization [facility] Care Team Providers Care Foundry Hand Name Role Phone Ronnie Kesha Unavailable Chepe Harriet Unavailable Jeremy Magallanes Unavailable SONA, DR JEREMY Jovel Admitting Unavailable MAGALLANES, DR JEREMY Jovel Attending Unavailable MAGALLANES, DR JEREMY Jovel Primary Care Unavailable MAGALLANES, DR JEREMY Jovel Consulting Unavailable TAVERASRUBI Consulting Unavailable OLEXA, KESHA Admitting Unavailable OLEXA, KESHA Attending Unavailable MAGALLANES, DR JEREMY Jovel Primary Care Unavailable WIDENER, DR BARBIE Goldberg Consulting Unavailable OLEXA, KESHA [...] Unavailable BREE, DR CARLOS Drummond Attending Unavailable BERE, DR CARLOS Drummond Consulting Unavailable MILLIE, JOHN Consulting Unavailable JEREMY MAGALLANES Primary Care Physician Jeremy Magallanes MD Primary Care Provider WILLIE, BARBIE Tellez Attending Unavailable POCOS, BARBIE Tellez Referring Unavailable POCOS, BARBIE Tellez Attending Unavailable MALATHI SANCHEZ Attending Unavailable JEREMY MAGALLANES Referring Unavailable POCDORON, JIN Attending Unavailable Jeremy Magallanes MD Unavailable [phone] PRIYANKA VAZ Attending Unavailable JEREMY MAGALLANES Referring Unavailable JEREMY MAGALLANES Primary Care Unavailable MD Jeremy Magallanes Primary Care Provider DO Bill Henry Attending Provider Jeremy Magallanes Primary Care Unavailable Bill Henry Attending Unavailable Bill Henry Admitting Unavailable Jeremy Magallanes MD Primary Care Provider CHIKIS, Ligia T Attending Unavailable CHIKIS, Ligia T Admitting Unavailable CHIKIS, Ligia T Attending Unavailable CHIKIS, Ligia T Attending Unavailable CHIKIS, Ligia T Admitting Unavailable Giedraitis , Andrius Vytautchela Attending Unavailable Giedraitis , Andrius Vytautas Attending Unavailable Giedraitis , Andrius Vytautas Attending Unavailable Giedraitis , Andrius Vytautas Attending Unavailable Giedraitis , Andrius Vytautas Attending Unavailable Giedraitis , Andrius Vytautas Attending Unavailable Giedraitis , Andrius Vytautas Attending Unavailable Giedraitis , Andrius Vyttin Attending Unavailable Jeremy Magallanes MD Primary Care Provider Jeremy Magallanes MD Attending Provider Yonis JACOB, Arnoldo Boggs Attending Provider Allergies Allergy Classification Reported Allergen(s) Allergy Type Date of Onset Reaction(s) Facility (20 sources) Ibuprofen Drug Allergy [facility] [facility] [employer] Other (20 sources) olodaterol / tiotropium Drug Allergy shortness of breath [employer] [facility] [employer] Other (20 sources) CT Scan dye Propensity to adverse reactions [facility] Other (13 sources) Ibuprofen; Translations: [IBUPROFEN] Drug Allergy 08-19-[address] [facility] Repository (2 sources) Iodine (And Iodine Containting Drugs) Drug allergy (disorder) 09-07-[address] [facility] Repository (1 source) NSAIDs Drug allergy (disorder) [facility] Repository (20 sources) fentaNYL Drug Allergy 12-05-19 24 Unknown, [facility] (12 sources) Ibuprofen Drug Allergy 01-15-20 15 Rash, [facility] (20 sources) Ofloxacin Drug Allergy 12-05-19 24 Unknown, [facility] (3 sources) zafirlukast Drug Allergy 01-15-20 15 Unknown [facility] Other (20 sources) Zafirlukast *ANTIASTHMATIC AND BRONCHODILATOR AGEN Propensity to adverse reactions Unknown [facility] Other (20 sources) Ibuprofen & Diet Manage Prod *ANALGESICS - ANTI-IN Propensity to adverse reactions Unknown [facility] Other (3 sources) Allergies Reconciled Propensity to adverse reactions Unknown [facility] Other (20 sources) Iodinated contrast media (substance) Drug allergy 06-03-20 19 Rash, [facility] Other (3 sources) patient allergy list reviewed by nurse or physicia Propensity to adverse reactions 10-05-19 16 Comment:Done [facility] Other (14 sources) olodaterol Drug Allergy 12-05-19 24 shortness of breath [facility] (14 sources) tiotropium Drug Allergy 12-05-19 24 shortness of breath [facility] (11 sources) Iodinated Contrast Media; Translations: [IODINATED CONTRAST MEDIA] Allergy to substance 06-03-20 19 [facility] (10 sources) Ibuprofen & Diet Manage Prod * Allergy to substance 12-04-19 [facility] Comment on above: Free Text Allergy: I buprofen & Diet Manage Prod *ANALGESICS - ANTI-IN (10 sources) Zafirlukast *ANTIASTHMATIC AND Allergy to substance 12-04-19 [facility] Comment on above: Free Text Allergy: Z afirlukast *ANTIASTHMATIC AND BRONCHODILATOR AGEN (3 sources) DULoxetine Drug Allergy 04-07-20 24 GI intolerance [facility] (2 sources) cefdinir Drug Allergy 06-05-20 25 Vomiting [facility] Comment on above: nausea, vomiting Medications Current Medications Medication Drug Class(es) Dates Sig (Normalized) Sig (Original) acetaminophen 300 mg / codeine phosphate 30 mg oral tablet (20 sources) Opioid Agonist Start: 02-16-2025 take 1 tablet by mouth twice daily as needed Acetaminophen-Cod eine 300-30 mg tablet Active 1 TAB PO Twice daily as needed February 16, 2025 12:00am Complies with drug therapy Start: 12-05-2023 End: 02-16-2025 take 1 tablet by mouth every eight hours as needed for pain Acetaminophen-Codeine 300-30 mg tablet Discontinued 1 TAB PO Every 8 hours as needed for pain 90 December 06, 2023 1:56pm February 16, 2025 2:48pm Start: 10-03-2023 End: 12-05-2023 take 1 tablet by mouth every six hours as needed for pain Acetaminophen-Codeine 300-30 mg tablet Discontinued 1 TAB PO Every 6 hours as needed for pain 120 October 09, 2023 9:50am November 04, [...] Sep, Active take [address] [facility] every four hours as needed acetaminophen-codeine (TYLENOL [...] as needed Orally every 6 hrs Active [id number] 200 actuat albuterol 0.09 mg/actuat metered dose inhaler (20 sources) beta2-Adrenergic Agonist Start: 01-12-2025 take 2 puff(s) by inhalation every four hours as needed Albuterol Sulfate 90 mcg/actuation HFA aerosol inhaler Active 0 .ROUTE .COMPLEX 8.5 January 12, 2025 12:22pm INHALE 2 PUFFS EVERY 4 HOURS NEEDED FOR WHEEZE OR FOR SHORTNESS OF BREATH Complies with drug therapy Start: 05-01-2024 End: 01-12-2025 take 1 puff(s) by inhalation every four hours as needed for wheezing Albuterol Sulfate 90 mcg/actuation HFA aerosol inhaler Discontinued 2 PUFF INHALATION Every 4 hours as needed for shortness of breath or wheezing 8.5 October 09, 2024 4:35pm January 12, 2025 12:22pm Start: 06-25-2023 End: 04-07-2024 take 2 puff(s) [...] Active cetirizine hydrochloride 10 mg oral capsule (4 sources) Histamine-1 Receptor Antagonist Start: 10-15-2024 take 1 capsule by mouth twice daily as needed Cetirizine (Zyrtec) 10 mg capsule Active 10 MG PO Twice daily as needed October 15, 2024 1:00am Complies with drug therapy gabapentin 800 mg oral tablet (1 source) Anti-epileptic Agent Start: 08-31-2023 gabapentin (Neurontin) 800 MG tablet glipiZIDE 5 mg / metFORMIN hydrochloride 500 mg oral tablet (20 sources) Biguanide, Sulfonylurea Start: 10-22-2024 take 2 tablets by mouth twice daily Glipizide-Metformin 5-500 mg tablet Active 0 .ROUTE .COMPLEX 360 October 22, 2024 11:21am TAKE 2 TABLETS BY MOUTH TWICE DAILY Complies with drug therapy Start: 07-19-2023 End: 10-22-2024 take 2 tablets by mouth twice daily Glipizide-Metformin 5-500 mg tablet Discontinued TAB PO December 04, 2023 12:00am October 22, 2024 11:22am [employer] tab Orally bid; Note: Source Status: Start; Refills: 1; Qty: 360 Tablet; Provider: Sona Young ( ) Start: 07-19-2023 take [address] [facility] in the morning glipiZIDE-metFORMIN (Metaglip) 5-500 MG tablet Take 2 tablets by mouth in the morning and 2 tablets before bedtime. 07/19/2023 Active take 1 tablet by desirae twice daily glipiZIDE-metFORMIN HCl 5-500 MG 1 tablet with a meal Orally bid for 30 days Active predniSONE 10 mg oral tablet (20 sources) Start: 01-21-2025 End: 02-15-2025 take 4 tablets by mouth once daily, then take 3 tablets by mouth once daily, then take 2 tablets by mouth once daily, then take 1 tablet by mouth once daily Prednisone 10 mg tablet Active 10 MG PO As Directed February 15, 2025 12:11pm 4 daily x 2 days, 3 daily x 2 days, 2 daily x 2 days, 1 daily x 6 days Complies with drug therapy Start: 12-22-2024 End: 01-21-2025 take 1 tablet by mouth twice daily Prednisone 20 mg tablet Discontinued 20 MG PO Twice daily December 22, 2024 12:00am January 21, 2025 9:39am Start: 06-17-2024 End: 10-15-2024 take 1 tablet by mouth twice daily Prednisone 20 mg tablet Discontinued 20 MG PO Twice daily August 28, 2024 2:19pm October 15, 2024 10:03am Start: 04-30-2023 predniSONE 10 MG 4 tabs po daily x 2 days, 3 tabs daily x 2 days, 2 tabs daily x 2 days, 1 tab daily x 2 days Orally Once a day for 8 12 Apr, 2023 Active Start: 11-23-2022 take [address] [facility] every twenty-four hours predniSONE 20 [...] Start: 04-23-2023 take 1 tablet by desirae at bedtime as needed tiZANidine (Zanaflex) 4 [...] days May, Active Start: 2023 HYDROcodone-ac etaminophen ([place]) 10-325 MG tablet Start: 2023 take 1 tablet by desirae th every six hours HYDROcodone-Acetaminophen 10-325 MG 1 tablet as needed Orally every 6 hrs for 7 days May, Active atorvastatin 20 mg oral tablet (20 sources) HMG-CoA Reductase Inhibitor Start: 10-23-2023 End: 12-17-2023 take 1 tablet by mouth once daily Atorvastatin 20 mg tablet Discontinued 0 .ROUTE .COMPLEX 90 October 23, [...] oral tablet (20 sources) Macrolide Antimicrobial Start: 12-24-2024 End: 01-21-2025 Azithromycin 250 mg tablet Discontinued 0 PO .COMPLEX December 24, 2024 12:00am January 21, 2025 9:38am For 250 mg dose pack: take 500 mg today (day 1), then 250 mg for 4 days (days 2-5) PO Start: 06-17-2024 End: 07-23-2024 Azithromycin 250 mg tablet D iscontinued 0 PO .COMPLEX 6 June 17, 2024 12:00am July 23, 2024 11:29am For 250 mg dose pack: take 500 mg today (day 1), then 250 mg for 4 days (days 2-5) PO Start: 06-17-2024 Azithromycin A ctive 0 PO .COMPLEX 6 June 17, 2024 12:00am For 250 mg dose pack: take 500 mg today (day 1), then 250 mg for 4 days (days 2-5) PO Start: 12-20-2023 End: 03-03-2024 Azithromycin 250 mg tablet D iscontinued 0 PO .COMPLEX December 20, 2023 12:00am [...] 4 more days for 5 Nov, Active cefdinir 300 mg oral capsule (3 sources) Cephalosporin Antibacterial Start: 12-22-2024 End: 12-24-2024 take 1 capsule by mouth twice daily Cefdinir 300 mg capsule Discontinued 300 MG PO Twice daily December 22, 2024 12:00am December 24, 2024 8:18am dextromethorphan hydrobromide 30 mg / pyrilamine maleate 30 mg oral tablet (5 sources) Uncompetitive O-mokyml-P-aspartat e Receptor Antagonist, Sigma-1 Agonist Start: 05-26-2021 take 1 tablet by mouth every eight hours [place] DMT 30-30 MG 1 tablet Orally every 8 hours for 7 days May, Not-Taking DULoxetine 60 mg delayed release oral capsule (20 sources) Serotonin and Norepinephrine Reuptake Inhibitor Start: 02-19-2024 End: 03-18-2024 take 1 capsule by mouth once daily Duloxetine 60 mg capsule,delayed release(DR/EC) Discontinued 0 .ROUTE .COMPLEX 90 February 19, 2024 8:39am March 18, 2024 9:00am TAKE 1 CAPSULE BY MOUTH EVERY DAY FOR 90 DAYS Start: 11-12-2023 End: 04-07-2024 take 1 capsule by mouth once daily Duloxetine 60 mg capsule,delayed release(DR/EC) Discontinued 60 MG PO Daily February 19, 2024 12:00am February 19, 2024 8:39am Start: 02-20-2023 take 1 capsule by [facility] every twenty-four hours Cymbalta 60 MG 1 capsule Orally Once a day for 30 days Feb, Active levoFLOXacin 500 mg oral tablet (1 source) Quinolone Antimicrobial Start: 01-21-2025 End: 02-16-2025 take 1 tablet by mouth once daily Levofloxacin 500 mg tablet Discontinued 500 MG PO Daily January 21, 2025 12:00am February 16, 2025 3:03pm methylPREDNISolone 4 mg oral tablet (20 sources) Corticosteroid Start: 10-15-2024 End: 12-22-2024 take 1 tablet by mouth once Methylprednisolone (Medrol (Boris)) 4 mg tablets,dose pack Discontinued 0 PO per package directions October 15, 2024 1:00am December 22, 2024 8:24am PO PER PKG DIR for 6 days [...] with dinner for 6 days May, Not-Taking 24 hr nicotine 0.583 mg/hr transdermal system (1 source) Cholinergic Nicotinic Agonist Start: 03-03-2024 End: 03-18-2024 apply 1 dose transdermal route once daily, then apply 1 dose transdermal route every twenty-four hours Nicotine (Nicoderm Cq) 14 mg/24 hr patch 24 hour Discontinued 1 PATCH TRANSDERML Daily March 03, 2024 12:00am March 18, 2024 9:00am Nicotine (Nicoderm Cq) 14 mg/24 hr patch 24 hour (7 sources) Start: 03-03-2024 End: 03-18-2024 apply 1 [...] PATCH TRANSDERML Daily March 03, 2024 12:00am omeprazole 40 mg delayed release oral capsule (16 sources) Proton Pump Inhibitor Start: 07-23-2024 End: 01-21-2025 take 1 capsule by mouth once daily Omeprazole 40 mg capsule,delayed release(DR/EC) Discontinued 40 MG PO Daily September 18, 2024 4:28pm January 21, 2025 9:39am Start: 07-23-2024 End: 07-23-2024 take 1 capsule by mouth twice daily Omeprazole 40 mg capsule,delayed release(DR/EC) Discontinued 40 MG PO Twice daily July 23, 2024 1:00am July 23, 2024 11:55am Start: 05-27-2024 take 1 capsule by mo ut[facility] in the morning omeprazole (PriLOSEC) 40 mg capsule Indications: Gastroesophageal reflux disease, unspecified whether esophagitis present Take 1 capsule (40 mg total) by mouth in the morning. 60 capsule 05/27/2024 Active ondansetron 4 mg disintegrating oral tablet (17 sources) Serotonin-3 Receptor Antagonist Start: 04-27-2024 ondansetron ODT (ZOFRAN ODT) 4 mg disintegrating tablet Dissolve 1 tablet (4 mg total) on tongue once. 04/27/2024 Active Start: 04-27-2024 End: 01-21-2025 take 1 tablet by mouth every eight hours Ondansetron 4 mg tablet,disintegrating Discontinued 4 MG PO Q8H December 07, 2024 4:32pm January 21, 2025 9:39am triamcinolone acetonide 40 mg/ml injectable suspension (20 sources) Corticosteroid Start: 12-12-2021 Kenalog-40 Nov, 40 mg Start: 12-12-2021 Kenalog -40 mg Nov, 40 mg Problems Active Problems Problem Classification Problem Date Documented Da te Episodic/Chronic Abdominal hernia (6 sources) Hiatal hernia; Translations: [Diaphragmatic hernia without obstruction or gangrene] 06-17-2024 Episodic Abdominal pain (20 sources) Right upper quadrant pain; Translations: [Right upper quadrant pain] Onset: 9 Episodic Acute bronchitis (9 sources) Acute bronchitis; Translations: [Acute bronchitis due to other specified organisms] Onset: 8 Episodic Allergic reactions (4 sources) Urticaria; Translations: [Urticaria, unspecified] 10-15-2024 Episodic Anxiety disorders (3 sources) Anxiety disorder; Translations: [Other specified anxiety disorders] Onset: 9 Chronic Asthma (20 sources) Mild intermittent asthma; Translations: [Mild intermittent asthma, uncomplicated] Onset: 5 Chronic Chronic obstructive pulmonary disease and bronchiectasis (20 sources) Chronic obstructive lung disease; Translations: [Chronic obstructive pulmonary disease, unspecified] Onset: 9 Chronic Chronic obstructive pulmonary disease and bronchiectasis (19 sources) Bronchitis, not specified as acute or chronic; Translations: [Bronchitis] Onset: 1 Resolved: 1 Episodic Diabetes mellitus with complications (20 sources) Hyperglycemia due to type 2 diabetes mellitus; Translations: [Type 2 diabetes mellitus with hyperglycemia] Onset: 9 Chronic Diabetes mellitus without complication (20 sources) Type 2 diabetes mellitus without complications; Translations: [Type 2 diabetes mellitus without complication] Onset: 7 12-05-2023 Chronic Diseases of mouth; excluding dental (8 sources) Abscess of submandibular region; Translations: [Cellulitis and abscess of mouth] 03-04-2024 Episodic Diseases of white blood cells (20 sources) Leukocytosis; Translations: [Other elevated white blood cell count] Chronic Disorders of teeth and jaw (3 sources) Jaw pain; Translations: [Jaw pain] Episodic Esophageal disorders (20 sources) Gastroesophageal reflux disease without esophagitis; Translations: [Gastro-esophageal reflux disease without esophagitis] Onset: 4 03-26-2024 Chronic Esophageal disorders (9 sources) Disorder of esophagus; Translations: [Disease of esophagus, unspecified] 03-18-2024 Episodic Genitourinary symptoms and ill-defined conditions (3 sources) Blood in urine; Translations: [Hematuria, unspecified] Episodic Hyperplasia of prostate (9 sources) Large prostate ; Translations: [Benign prostatic hyperplasia without lower urinary tract symptoms] 10-15-2024 Chronic Lymphadenitis (10 sources) Acute lymphadenitis; Translations: [Acute lymphadenitis, unspecified] [...] Chronic Other diseases of bladder and urethra (4 sources) Diverticulum of bladder; Translations: [Diverticulum of bladder] 10-15-2024 Chronic Other diseases of bladder and urethra (2 sources) Diverticulum of bladder; Translations: [Diverticulum of bladder] 10-15-2024 Chronic Other gastrointestinal disorders (1 source) Other fecal abnormalities Episodic Other gastrointestinal disorders (3 sources) Abnormal feces; Translations: [Other fecal abnormalities] Episodic Other gastrointestinal disorders (1 source) Dysphagia, unspecified; Translations: [Dysphagia, unspecified] Onset: 4 Episodic Other injuries and conditions due to external causes (4 sources) Contusion; Translations: [Other injury of unspecified body region, initial encounter] 12-22-2024 Episodic Other injuries and conditions due to external causes (2 sources) Other injury of unspecified body region, initial encounter; Translations: [Contusion of unspecified site] 12-22-2024 Episodic Other liver diseases (20 sources) High enzyme level in serum; Translations: [Abnormal levels of other serum enzymes] Episodic Other liver diseases (9 sources) Liver mass; Translations: [Hepatomegaly, not elsewhere [...] right shoulder Episodic Other non-traumatic joint disorders (14 sources) Joint pain; Translations: [Pain in unspecified joint] Onset: 4 12-05-2023 Episodic Other non-traumatic joint disorders (3 sources) Pain in unspecified joint; Translations: [Pain in joint, site unspecified] 12-05-2023 Episodic Other non-traumatic joint disorders (9 sources) Hip pain; Translations: [Pain in right [...] conditions (not mental disorders or infectious disease) (7 sources) Barium swallow abnormal; Translations: [Abnormal findings on diagnostic imaging of other parts of digestive tract] 05-27-2024 Episodic Other skin disorders (11 sources) Mass of submandibular region; Translations: [Localized [...] 10-05-2015 Episodic Other aftercare (1 source) Other retirement (current) drug therapy; Translations: [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] Onset: 12-29-2021 Episodic Other [...] [Other dysphagia] Onset: 03-27-2023 03-27-2023 Episodic Other skin disorders (5 sources) Mass of neck; Translations: [Localized swelling, mass and lump, neck] Onset: 04-07-2024 04-07-2024 Episodic Pneumonia (except that caused by tuberculosis or sexually transmitted disease) (3 sources) Pneumonia; Translations: [Pneumonia, unspecified organism] Onset: 07-28-2015 Episodic Syncope (3 sources) Syncope and collapse; Translations: [Syncope and collapse] Onset: 09-21-2016 Episodic Results Test Name Value Interpretation Reference Range Facility Laboratory - Chemistry and C hemistry - challengeon 12-23-2024 Lactate [Moles/Vol] 2.6 mmol/L Critically high 0.4-2.0 [facility] Comment on above: RESULTS CALLED TO GAURI SRINIVASAN RN at 0220 Basophils Auto (Bld) [#/Vol] on 12-22-2024 Basophils (Bld) [#/Vol] Automated basophil count 0.0-0.1 [facility] Basophils (Bld) [#/Vol] 0.0 10 3/uL 0.0-0.1 [facility] Basophils/100 WBC Auto (Bld) on 12-22-2024 Basophils/100 WBC (Bld) Automated basophil % 0.2-2.0 [facility] Basophils/100 WBC (Bld) 0.6 % 0.2-2.0 [facility] Basophils/100 WBC Manual cnt (Bld)on 12-22-2024 Basophils/100 WBC (Bld) Basophils/100 leukocytes in Blood by Manual count Low 0.2-2.0 [facility] Basophils/100 WBC (Bld) 0.0 % Low 0.2-2.0 [facility] Eosinophils/100 WBC Auto (Bl d)on 12-22-2024 Eosinophils/100 WBC (Bld) Automated eosinophil % 0.9-7.0 [facility] Eosinophils/100 WBC (Bld) 2.0 % 0.9-7.0 [facility] Eosinophils/100 WBC Manual c nt (Bld)on 12-22-2024 Eosinophils/100 WBC (Bld) Eosinophils/100 leukocytes in Blood by Manual count Low 0.9-7.0 [facility] Eosinophils/100 WBC (Bld) 0.0 % Low 0.9-7.0 [facility] Erythrocyte distribution wid th Auto (RBC) [Ratio]on 12-22-2024 Erythrocyte distribution width (RBC) [Ratio] 13.5 % 11.0-15.0 [facility] Estimated glomerular filtrat ion rate (GFR) non- Americanon 12-22-2024 GFR/1.73 sq M.predicted among non-blacks MDRD (S/P/Bld) [Vol rate/Area] Estimated glomerular filtration rate (GFR) non- Low >=60 mL/min/1.73m 2 [facility] GFR/1.73 sq M.predicted among non-blacks MDRD (S/P/Bld) [Vol rate/Area] 59 mL/min/{1.73_m2} Low >=60 mL/min/1.73m 2 [facility] Globulin Calc (S) [Mass/Vol] on 12-22-2024 Globulin (S) [Mass/Vol] Serum globulin measurement by calculation (mass/volume) [facility] Globulin (S) [Mass/Vol] 3.6 g/dL [facility] Glucose mean value [Mass/vol ume] in Blood Estimated from glycated hemoglobinon 12-22-2024 Average glucose Estimated from glycated hemoglobin (Bld) [Mass/Vol] Glucose mean value [Mass/volume] in Blood Estimated from glycated hemoglobin [facility] Average glucose Estimated from glycated hemoglobin (Bld) [Mass/Vol] 192 mg/dL [facility] Hematocrit Auto (Bld) [Volum e fraction]on 12-22-2024 Hematocrit (Bld) [Volume fraction] 56.3 % High 42.0-54.0 [facility] Hemoglobin A1c percentageon 12-22-2024 HbA1c (Bld) [Mass fraction] Hemoglobin A1c percentage High 4.5-6.2 [facility] Comment on above: ADA RECOMMENDED LIMI T 4.0 - 6.0ADA THERAPEUTIC TARGET < 7.0ACTION SUGGESTED> 7.0 HbA1c (Bld) [Mass fraction] 8.3 % High 4.5-6.2 [facility] Comment on above: ADA RECOMMENDED LIMI T 4.0 - 6.0ADA THERAPEUTIC TARGET < 7.0ACTION SUGGESTED> 7.0 Hemoglobin [Mass/volume] in Bloodon 12-22-2024 Hemoglobin (Bld) [Mass/Vol] 18.9 g/dL High 14.0-18.0 [facility] Laboratory - Chemistry and C hemistry - challengeon 12-22-2024 Albumin [Mass/Vol] 4.3 g/dL 3.4-5.0 [facility] ALP [Catalytic activity/Vol] 121 U/L High 46-116 [facility] ALT [Catalytic activity/Vol] 46 U/L 16-63 [facility] AST [Catalytic activity/Vol] 17 U/L 15-37 [facility] Bilirubin [Mass/Vol] 0.4 mg/dL 0.2-1.0 [facility] Calcium [Mass/Vol] 9.7 mg/dL 8.5-10.1 [facility] Chloride [Moles/Vol] 99 mmol/L 98-107 [facility] CO2 [Moles/Vol] 21.7 mmol/L 21.0-32.0 [facility] Creatinine [Mass/Vol] 1.24 mg/dL 0.70-1.30 [facility] GFR/1.73 sq M.predicted MDRD (S/P/Bld) [Vol rate/Area] mL/min/{1.73_m2} >=60 mL/min/1.73m 2 [facility] Glucose [Mass/Vol] 278 mg/dL High 74-106 [facility] Lactate [Moles/Vol] 2.3 mmol/L Critically high 0.4-2.0 [facility] Comment on above: RESULTS CALLED TO DIONE CABALLERO RN at 0009 Lipase [Catalytic activity/Vol] 31.0 U/L 16.0-77.0 [facility] Potassium [Moles/Vol] 4.6 mmol/L 3.5-5.1 [facility] Protein [Mass/Vol] 7.9 g/dL 6.4-8.2 [facility] Sodium [Moles/Vol] 133 mmol/L Low 136-145 [facility] Urea nitrogen [Mass/Vol] 15.0 mg/dL 7.0-18.0 [facility] Urea nitrogen/Creatinine [Mass ratio] 12.1 mg/mg [facility] TSH Qn 1.532 m[IU]/L 0.358-3.740 [facility] Laboratory - Hematology and Cell countson 12-22-2024 Lymphocytes/100 WBC (Bld) 1.0 % Low 20.5-60.0 [facility] Monocytes/100 WBC (Bld) 7.0 % 1.7-12.0 [facility] Immature granulocytes/100 WBC (Bld) 0.2 % 0.0-0.5 [facility] Leukocytes [#/volume] correc jean claude for nucleated erythrocytes in Blood by Automated counon 12-22-2024 WBC corrected for nucl RBC Auto (Bld) [#/Vol] 14.4 10 3/uL High 4.0-11.0 [facility] Lymphocytes Auto (Bld) [#/Vo l]on 12-22-2024 Lymphocytes (Bld) [#/Vol] Lymphocytes [#/volume] in Blood by Automated count 1.2-3.8 [facility] Lymphocytes (Bld) [#/Vol] 2.1 10 3/uL 1.2-3.8 [facility] Lymphocytes/100 WBC Auto (Bl d)on 12-22-2024 Lymphocytes/100 WBC (Bld) Lymphocytes/100 leukocytes in Blood by Automated count 20.5-60.0 [facility] Lymphocytes/100 WBC (Bld) 31.7 % 20.5-60.0 [facility] MCH Auto (RBC) [Entitic mass ]on 12-22-2024 MCH (RBC) [Entitic mass] 29.7 pg 25.9-34.0 [facility] MCHC Auto (RBC) [Mass/Vol]on 12-22-2024 MCHC (RBC) [Mass/Vol] 33.6 g/dL 29.9-35.2 [facility] MCV Auto (RBC) [Entitic vol] on 12-22-2024 MCV (RBC) [Entitic vol] 88.5 fL 80.0-94.0 [facility] Microalbumin [Mass/volume] i n Urineon 12-22-2024 Albumin DL <= 20 mg/L (U) [Mass/Vol] Microalbumin [Mass/volume] in Urine <=30.0 [facility] Albumin DL <= 20 mg/L (U) [Mass/Vol] 2.0 mg/dL <=30.0 [facility] Monocytes Auto (Bld) [#/Vol] on 12-22-2024 Monocytes (Bld) [#/Vol] Automated blood monocyte count 0.3-0.8 [facility] Monocytes (Bld) [#/Vol] 0.7 10 3/uL 0.3-0.8 [facility] Monocytes/100 WBC Auto (Bld) on 12-22-2024 Monocytes/100 WBC (Bld) Automated monocyte % 1.7-12.0 [facility] Monocytes/100 WBC (Bld) 10.7 % 1.7-12.0 [facility] Neutrophils Auto (Bld) [#/Vo l]on 12-22-2024 Neutrophils (Bld) [#/Vol] Neutrophils [#/volume] in Blood by Automated count 1.4-6.5 [facility] Neutrophils (Bld) [#/Vol] 3.6 10 3/uL 1.4-6.5 [facility] Neutrophils/100 WBC Auto (Bl d)on 12-22-2024 Neutrophils/100 WBC (Bld) Automated neutrophil % 43.0-75.0 [facility] Neutrophils/100 WBC (Bld) 54.8 % 43.0-75.0 [facility] No Panel Informationon 12-22 Absolute Basophils (Manual) 0.00 10 3/uL 0.00-0.10 [facility] Eosinophils # (Manual) 0.00 10 3/uL 0.00-0.70 [facility] Lymphocytes # (Manual) 0.14 10 3/uL Low 1.20-3.80 [facility] Monocytes # (Manual) 1.00 10 3/uL High 0.30-0.80 [facility] Segmented Neutrophils # (Manual) 13.24 10 3/uL High 1.4-6.5 [facility] Troponin I High Sensitivity <4.0 pg/mL Low 4.0-76.1 [facility] Comment on above: CUT-OFF POINTS HAVE BEEN ESTABLISHED BASED ON THE FOURTHUNIVERSAL DEFINITION OF MYOCARDIAL INFARCTION. THE UPPERREFERENCE LIMIT (URL) OF TROPONIN, DEFINED THE 99THPERCENTILE OF cTnI DISTRIBUTION IN A REFERENCE POPULATION,HAS BEEN CONFIRMED THE DECISION THRESHOLD FOR MIDIAGNOSIS.99TH PERCENTILE = 76.2 PG/MLNOTE: HIGH-SENSITIVITY TROPONIN ASSAY IS NOT INTENDED TO BEUSED IN ISOLATION BUT SHOULD BE INTERPRETED IN CONJUNCTIONWITH OTHER DIAGNOSTIC AND CLINICAL INFORMATION. Eosinophils # (Auto) 0.1 10 3/uL 0.0-0.7 [facility] Immature Granulocyte # (Auto) 0.01 10 3/uL 0.00-0.03 [facility] Prostate Specific Antigen Screen 0.89 ng/mL <=4.00 [facility] Urine Random Creatinine 79.28 mg/dL 20.00-300.00 [facility] Platelet mean volume Auto (B ld) [Entitic vol]on 12-22-2024 Platelet mean volume (Bld) [Entitic vol] 9.4 fL Low 9.5-13.5 [facility] Platelets Auto (Bld) [#/Vol] on 12-22-2024 Platelets (Bld) [#/Vol] 319 10 3/uL 150-450 [facility] RBC Auto (Bld) [#/Vol]on RBC (Bld) [#/Vol] 6.36 10 6/uL High 4.70-6.10 [facility] Segmented neutrophils/100 WB C Manual cnt (Bld)on 12-22-2024 Segmented neutrophils/100 WBC (Bld) Manual blood segmented neutrophils/100 leukocytes High 43.0-75.0 [facility] Segmented neutrophils/100 WBC (Bld) 92.0 % High 43.0-75.0 [facility] Serum or plasma albumin/glob ulin mass ratioon 12-22-2024 Albumin/Globulin [Mass ratio] Serum or plasma albumin/globulin mass ratio [facility] Albumin/Globulin [Mass ratio] 1.2 {ratio} [facility] Serum or plasma anion gap de terminationon 12-22-2024 Anion gap [Moles/Vol] Serum or plasma anion gap determination [facility] Anion gap [Moles/Vol] 16.9 mmol/L [facility] Urine microalbumin/creatinin e mass ratioon 12-22-2024 Albumin/Creatinine DL <= 20 mg/L (U) [Mass ratio] Urine microalbumin/creatin ine mass ratio 0.0-29.9 [facility] Comment on above: NO MICROALBUMINURIA 0-29 MG/GCLINICAL MICROALBUMINURIA 30-300 MG/GMACROALBUMINURIA >300 MG/G Albumin/Creatinine DL <= 20 mg/L (U) [Mass ratio] 25.2 mg/g 0.0-29.9 [facility] Comment on above: NO MICROALBUMINURIA 0-29 MG/GCLINICAL MICROALBUMINURIA 30-300 MG/GMACROALBUMINURIA >300 MG/G CHEMISTRYOrdered By: Sonia Brandt on 11-04-2024 HbA1c (Bld) [Mass fraction] 9.5 % High <=5.9% [facility] ChemAutoSS [id number] 11-04-2024 HbA1c (Bld) [Mass fraction] 9.5 % High <=5.9 [facility] Comment on above: Performed By: #### [id number] #### [facility] [address] [place] [id number] Basophils Auto (Bld) [#/Vol] on 10-11-2024 Basophils (Bld) [#/Vol] Automated basophil count 0.0-0.1 [facility] Basophils/100 WBC Auto (Bld) on 10-11-2024 Basophils/100 WBC (Bld) Automated basophil % 0.2-2.0 [facility] Eosinophils/100 WBC Auto (Bl d)on 10-11-2024 Eosinophils/100 WBC (Bld) Automated eosinophil % 0.9-7.0 [facility] Erythrocyte distribution wid th Auto (RBC) [Ratio]on 10-11-2024 Erythrocyte distribution width (RBC) [Ratio] Erythrocyte distribution width [Ratio] by Automated count 11.0-15.0 [facility] Estimated glomerular filtrat ion rate (GFR) non- Americanon 10-11-2024 GFR/1.73 sq M.predicted among non-blacks MDRD (S/P/Bld) [Vol rate/Area] Estimated glomerular filtration rate (GFR) non- >=60 mL/min/1.73m 2 [facility] Globulin Calc (S) [Mass/Vol] on 10-11-2024 Globulin (S) [Mass/Vol] Serum globulin measurement by calculation (mass/volume) [facility] Hematocrit Auto (Bld) [Volum e fraction]on 10-11-2024 Hematocrit (Bld) [Volume fraction] Hematocrit [Volume Fraction] of Blood by Automated count 42.0-54.0 [facility] Hemoglobin [Mass/volume] in Bloodon 10-11-2024 Hemoglobin (Bld) [Mass/Vol] Hemoglobin [Mass/volume] in Blood 14.0-18.0 [facility] Laboratory - Chemistry and C hemistry - challengeon 10-11-2024 Albumin [Mass/Vol] 3.5 g/dL 3.4-5.0 [facility] ALP [Catalytic activity/Vol] 102 U/L 46-116 [facility] ALT [Catalytic activity/Vol] 39 U/L 16-63 [facility] AST [Catalytic activity/Vol] 13 U/L Low 15-37 [facility] Bilirubin [Mass/Vol] 0.2 mg/dL 0.2-1.0 [facility] Calcium [Mass/Vol] 9.1 mg/dL 8.5-10.1 [facility] Chloride [Moles/Vol] 102 mmol/L 98-107 [facility] CO2 [Moles/Vol] 28.4 mmol/L 21.0-32.0 [facility] Creatinine [Mass/Vol] 0.97 mg/dL 0.70-1.30 [facility] GFR/1.73 sq M.predicted MDRD (S/P/Bld) [Vol rate/Area] mL/min/{1.73_m2} >=60 mL/min/1.73m 2 [facility] Glucose [Mass/Vol] 317 mg/dL High 74-106 [facility] Potassium [Moles/Vol] 4.3 mmol/L 3.5-5.1 [facility] Protein [Mass/Vol] 6.7 g/dL 6.4-8.2 [facility] Sodium [Moles/Vol] 136 mmol/L 136-145 [facility] Urea nitrogen [Mass/Vol] 14.0 mg/dL 7.0-18.0 [facility] Urea nitrogen/Creatinine [Mass ratio] 14.4 mg/mg [facility] Laboratory - Hematology and Cell countson 10-11-2024 Immature granulocytes/100 WBC (Bld) 0.2 % 0.0-0.5 [facility] Leukocytes [#/volume] correc jean claude for nucleated erythrocytes in Blood by Automated counon 10-11-2024 WBC corrected for nucl RBC Auto (Bld) [#/Vol] Leukocytes [#/volume] corrected for nucleated erythrocytes in Blood by Automated coun 4.0-11.0 [facility] Lymphocytes Auto (Bld) [#/Vo l]on 10-11-2024 Lymphocytes (Bld) [#/Vol] Lymphocytes [#/volume] in Blood by Automated count 1.2-3.8 [facility] Lymphocytes/100 WBC Auto (Bl d)on 10-11-2024 Lymphocytes/100 WBC (Bld) Lymphocytes/100 leukocytes in Blood by Automated count 20.5-60.0 [facility] MCH Auto (RBC) [Entitic mass ]on 10-11-2024 MCH (RBC) [Entitic mass] MCH [Entitic mass] by Automated count 25.9-34.0 [facility] MCHC Auto (RBC) [Mass/Vol]on 10-11-2024 MCHC (RBC) [Mass/Vol] MCHC [Mass/volume] by Automated count 29.9-35.2 [facility] MCV Auto (RBC) [Entitic vol] on 10-11-2024 MCV (RBC) [Entitic vol] MCV [Entitic volume] by Automated count 80.0-94.0 [facility] Monocytes Auto (Bld) [#/Vol] on 10-11-2024 Monocytes (Bld) [#/Vol] Automated blood monocyte count 0.3-0.8 [facility] Monocytes/100 WBC Auto (Bld) on 10-11-2024 Monocytes/100 WBC (Bld) Automated monocyte % 1.7-12.0 [facility] Neutrophils Auto (Bld) [#/Vo l]on 10-11-2024 Neutrophils (Bld) [#/Vol] Neutrophils [#/volume] in Blood by Automated count 1.4-6.5 [facility] Neutrophils/100 WBC Auto (Bl d)on 10-11-2024 Neutrophils/100 WBC (Bld) Automated neutrophil % 43.0-75.0 [facility] No Panel Informationon 10-11 Eosinophils # (Auto) 0.2 10 3/uL 0.0-0.7 [facility] Immature Granulocyte # (Auto) 0.02 10 3/uL 0.00-0.03 [facility] Platelet mean volume Auto (B ld) [Entitic vol]on 10-11-2024 Platelet mean volume (Bld) [Entitic vol] Platelet mean volume [Entitic volume] in Blood by Automated count Low 9.5-13.5 [facility] Platelets Auto (Bld) [#/Vol] on 10-11-2024 Platelets (Bld) [#/Vol] Platelets [#/volume] in Blood by Automated count 150-450 [facility] RBC Auto (Bld) [#/Vol]on RBC (Bld) [#/Vol] Erythrocytes [#/volume] in Blood by Automated count 4.70-6.10 [facility] Serum or plasma albumin/glob ulin mass ratioon 10-11-2024 Albumin/Globulin [Mass ratio] Serum or plasma albumin/globulin mass ratio [facility] Serum or plasma anion gap de terminationon 10-11-2024 Anion gap [Moles/Vol] Serum or plasma anion gap determination [facility] Estimated glomerular filtrat ion rate (GFR) non- Americanon 08-26-2024 GFR/1.73 sq M.predicted among non-blacks MDRD (S/P/Bld) [Vol rate/Area] Estimated glomerular filtration rate (GFR) non- >=60 mL/min/1.73m 2 [facility] Laboratory - Chemistry and C hemistry - challengeon 08-26-2024 Creatinine [Mass/Vol] 1.02 mg/dL 0.70-1.30 [facility] GFR/1.73 sq M.predicted MDRD (S/P/Bld) [Vol rate/Area] mL/min/{1.73_m2} >=60 mL/min/1.73m 2 [facility] EGDon 06-03-2024 [facility] No Panel InformationOrdered By: Rosalia Shea on 06-03-2024 [facility] No Panel InformationOrdered By: Bill Henry on 06-03-2024 Miscellaneous Pathology Test See comment [facility] Comment on above: See report. Scanned copy available in EMR. No Panel Informationon 06-03 Helicobacter pylori Urease Test Negative [facility] Pathology Request for Lab Co rpon 06-03-2024 Pathology Request for Lab Raymond Normal [facility] Comment on above: Order Comment: PATHO LOGY GI SPECIMEN Result Comment: See report. Scanned copy available in EMR. PERFORMED BY: [place] [address] PATHOLOGIST DIESEL SERVICE APPRENTICE JON PONCE M.D. Performed By: #### P A[facility] TO [facility] #### [address] 05-14-2024 [id number] NICHOLAS CRAIG ([id number]) 1960 M Date Time Provider Department 05/14/24 AMEYA MERAZ [id number] During your visit today, we recorded the following information about you: Keily Martines 05/14/2024 1:11 PM Signed Referral was sent from [facility] for new consult with Dr Meraz Please see below and advise Vivian Morley 05/15/2024 11:54 AM Addendum Consult from Dr. 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] Problem List As Of Date: 05/14/2024 (None) Encounter Status:Closed by VIVIAN MORLEY on 05/21/24 Normal [facility] Basophils Auto (Bld) [#/Vol] on 02-27-2024 Basophils (Bld) [#/Vol] 0.1 10 3/uL 0.0-0.1 [facility] Basophils/100 WBC Auto (Bld) on 02-27-2024 Basophils/100 WBC (Bld) 0.5 % 0.2-2.0 [facility] Eosinophils/100 WBC Auto (Bl d)on 02-27-2024 Eosinophils/100 WBC (Bld) 2.5 % 0.9-7.0 [facility] Erythrocyte distribution wid th Auto (RBC) [Ratio]on 02-27-2024 Erythrocyte distribution width (RBC) [Ratio] 13.5 % 11.0-15.0 [facility] Estimated glomerular filtrat ion rate (GFR) non- Americanon 02-27-2024 GFR/1.73 sq M.predicted among non-blacks MDRD (S/P/Bld) [Vol rate/Area] mL/min/{1.73_m2} >=60 [facility] Hematocrit Auto (Bld) [Volum e fraction]on 02-27-2024 Hematocrit (Bld) [Volume fraction] 47.1 % 42.0-54.0 [facility] Hemoglobin [Mass/volume] in Bloodon 02-27-2024 Hemoglobin (Bld) [Mass/Vol] 15.5 g/dL 14.0-18.0 [facility] Laboratory - Chemistry and C hemistry - challengeon 02-27-2024 Calcium [Mass/Vol] 8.9 mg/dL 8.5-10.1 [facility] Chloride [Moles/Vol] 98 mmol/L 98-107 [facility] CO2 [Moles/Vol] 28.1 mmol/L 21.0-32.0 [facility] Creatinine [Mass/Vol] 0.86 mg/dL 0.70-1.30 [facility] GFR/1.73 sq M.predicted MDRD (S/P/Bld) [Vol rate/Area] mL/min/{1.73_m2} >=60 [facility] Glucose [Mass/Vol] 237 mg/dL High 74-106 [facility] Lactate [Moles/Vol] 1.3 mmol/L 0.4-2.0 [facility] Potassium [Moles/Vol] 4.4 mmol/L 3.5-5.1 [facility] Sodium [Moles/Vol] 130 mmol/L Low 136-145 [facility] Urea nitrogen [Mass/Vol] 21.0 mg/dL High 7.0-18.0 [facility] Urea nitrogen/Creatinine [Mass ratio] 24.4 mg/mg [facility] Laboratory - Hematology and Cell countson 02-27-2024 Immature granulocytes/100 WBC (Bld) 0.3 % 0.0-0.5 [facility] Leukocytes [#/volume] correc jean claude for nucleated erythrocytes in Blood by Automated counon 02-27-2024 WBC corrected for nucl RBC Auto (Bld) [#/Vol] 9.3 10 3/uL 4.0-11.0 [facility] Lymphocytes Auto (Bld) [#/Vo l]on 02-27-2024 Lymphocytes (Bld) [#/Vol] 2.4 10 3/uL 1.2-3.8 [facility] Lymphocytes/100 WBC Auto (Bl d)on 02-27-2024 Lymphocytes/100 WBC (Bld) 25.5 % 20.5-60.0 [facility] MCH Auto (RBC) [Entitic mass ]on 02-27-2024 MCH (RBC) [Entitic mass] 29.1 pg 25.9-34.0 [facility] MCHC Auto (RBC) [Mass/Vol]on 02-27-2024 MCHC (RBC) [Mass/Vol] 32.9 g/dL 29.9-35.2 [facility] MCV Auto (RBC) [Entitic vol] on 02-27-2024 MCV (RBC) [Entitic vol] 88.5 fL 80.0-94.0 [facility] Monocytes Auto (Bld) [#/Vol] on 02-27-2024 Monocytes (Bld) [#/Vol] 1.1 10 3/uL High 0.3-0.8 [facility] Monocytes/100 WBC Auto (Bld) on 02-27-2024 Monocytes/100 WBC (Bld) 12.0 % 1.7-12.0 [facility] Neutrophils Auto (Bld) [#/Vo l]on 02-27-2024 Neutrophils (Bld) [#/Vol] 5.5 10 3/uL 1.4-6.5 [facility] Neutrophils/100 WBC Auto (Bl d)on 02-27-2024 Neutrophils/100 WBC (Bld) 59.2 % 43.0-75.0 [facility] No Panel Informationon 02-26 Eosinophils # (Auto) 0.2 10 3/uL 0.0-0.7 [facility] Immature Granulocyte # (Auto) 0.03 10 3/uL 0.00-0.03 [facility] Platelet mean volume Auto (B ld) [Entitic vol]on 02-27-2024 Platelet mean volume (Bld) [Entitic vol] 8.8 fL Low 9.5-13.5 [facility] Platelets Auto (Bld) [#/Vol] on 02-27-2024 Platelets (Bld) [#/Vol] 288 10 3/uL 150-450 [facility] RBC Auto (Bld) [#/Vol]on RBC (Bld) [#/Vol] 5.32 10 6/uL 4.70-6.10 [facility] Serum or plasma anion gap de terminationon 02-27-2024 Anion gap [Moles/Vol] 8.3 mmol/L [facility] Basophils Auto (Bld) [#/Vol] on 12-05-2023 [...] challengeon 12-05-2023 Calcium [Mass/Vol] 9.7 mg/dL 8.5-10.1 [facility] Chloride [Moles/Vol] 102 mmol/L 98-107 [facility] CO2 [Moles/Vol] 27.6 mmol/L 21.0-32.0 [facility] Creatinine [Mass/Vol] 1.01 mg/dL 0.70-1.30 [facility] GFR/1.73 sq M.predicted MDRD (S/P/Bld) [Vol rate/Area] mL/min/{1.73_m2} >=60 [facility] Glucose [Mass/Vol] 156 mg/dL High 74-106 [facility] Potassium [Moles/Vol] 4.4 mmol/L 3.5-5.1 [facility] Sodium [Moles/Vol] 139 mmol/L 136-145 [facility] Urea nitrogen [Mass/Vol] 13.0 mg/dL 7.0-18.0 [facility] Urea nitrogen/Creatinine [Mass ratio] 12.9 mg/mg [facility] Laboratory - Hematology and Cell countson 12-05-2023 ESR (Bld) [Velocity] 17 mm/h <=20 [facility] HbA1c (Bld) [Mass fraction] 7.6 % High 4.5-6.2 [facility] Comment on above: [...] Lymphocytes (Bld) [#/Vol] 2.4 10 3/uL 1.2-3.8 [facility] Lymphocytes/100 WBC Auto (Bl d)on 12-05-2023 Lymphocytes/100 WBC (Bld) 31.2 % 20.5-60.0 [facility] MCH Auto (RBC) [Entitic mass ]on 12-05-2023 MCH (RBC) [Entitic mass] 28.5 pg 25.9-34.0 [facility] MCHC Auto (RBC) [Mass/Vol]on 12-05-2023 MCHC (RBC) [Mass/Vol] 32.7 g/dL 29.9-35.2 [facility] MCV Auto (RBC) [Entitic vol] on [...] Eosinophils # (Auto) 0.2 10 3/uL 0.0-0.7 [facility] Immature Granulocyte # (Auto) 0.03 10 3/uL 0.00-0.03 [facility] Platelet mean volume Auto (B ld) [Entitic vol]on 12-05-2023 Platelet mean volume (Bld) [Entitic vol] 8.6 fL Low 9.5-13.5 [facility] Platelets Auto (Bld) [#/Vol] on 12-05-2023 Platelets (Bld) [#/Vol] 330 10 3/uL 150-450 [facility] RBC Auto (Bld) [#/Vol]on RBC (Bld) [#/Vol] 5.62 10 6/uL 4.70-6.10 [facility] Serum or plasma anion gap de terminationon 12-05-2023 Anion gap [Moles/Vol] 13.8 mmol/L [facility] Magnesiumon 07-02-2023 Magnesium [Mass/Vol] 2.7532583 mg/dL Normal 1.8- 2.4 mg/dL [facility] Other Magnesium see note [facility] Other XR CHEST 2 Von 11-24-2022 XR [...] RUBI TAVERAS Date: 2022-11-24 17:17 Normal [facility] CT LUNG CANCER SCREENINGon 1 09-20-2021 [...] YEISON NAVAS Date: 2022-07-20 07:[address] [facility] CBC AUTO DIFFon 06-07-2022 BASO # 0.1 103/ul Normal 0.0-0.[address] [facility] Comment on above: Performed By: #### C BC #### [facility] [address] [place] [address] Dr. Eran Chacon Basophils/100 WBC (Bld) 0.6 % Normal 0.2-2.[address] [facility] Comment on above: Performed By: #### C BC #### [facility] [address] [place] [address] Dr. Eran Chacon EO # 0.3 103/ul Normal 0.0-0.[address] [facility] Comment on above: Performed By: #### C BC #### [facility] [address] [place] [address] Dr. Eran Chacon Eosinophils/100 WBC (Bld) 3.3 % Normal 0.9-7.0 [facility] Comment on above: Performed By: #### C BC #### [facility] [address] [place] [address] Dr. Eran Chacon Erythrocyte distribution width (RBC) [Ratio] 12.9 % Normal 11.0-15.[address] [facility] Comment on above: Performed By: #### C BC #### [facility] [address] [place] [address] Dr. Eran Chacon Hematocrit (Bld) [Volume fraction] 47.7 % Normal 42.0-54.[address] [facility] Comment on above: Performed By: #### C BC #### [facility] [address] [place] [address] Dr. Eran Chacon Hemoglobin (Bld) [Mass/Vol] 15.9 g/dL Normal 14.0-18.[address] [facility] Comment on above: Performed By: #### C BC #### [facility] [address] [place] [address] Dr. Eran Chacon IG # 0.02 10e3/ul Normal 0.00-0.[address] [facility] Comment on above: Performed By: #### C BC #### [facility] [address] [place] [address] Dr. Eran Chacon IG % 0.2 % Normal 0.0-0.[address] [facility] Comment on above: Performed By: #### C BC #### [facility] [address] [place] [address] Dr. Eran Chacon LYMPH # 3.4 103/ul Normal 1.2-3.[address] [facility] Comment on above: Performed By: #### C BC #### [facility] [address] [place] [address] Dr. Eran Chacon Lymphocytes/100 WBC (Bld) 34.5 % Normal 20.5-60.[address] [facility] Comment on above: Performed By: #### C BC #### [facility] [address] [place] [address] Dr. Eran Chacon MANUAL DIFF REQ NO Normal [facility] Comment on above: Performed By: #### C BC #### [facility] [address] [place] [address] Dr. Eran Chacon MCH (RBC) [Entitic mass] 29.6 pg Normal 25.9-34.[address] [facility] Comment on above: Performed By: #### C BC #### [facility] [address] [place] [address] Dr. Eran Chacon MCHC (RBC) [Mass/Vol] 33.3 g/dL Normal 29.9-35.[address] [facility] Comment on above: Performed By: #### C BC #### [facility] [address] [place] [address] Dr. Eran Chacon MCV (RBC) [Entitic vol] 88.8 fL Normal 80.0-94.[address] [facility] Comment on above: Performed By: #### C BC #### [facility] [address] [place] [address] Dr. Eran Chacon MONO # 0.9 103/ul Critically high 0.3-0.8 [facility] Comment on above: Performed By: #### C BC #### [facility] [address] [place] [address] Dr. Eran Chacon Monocytes/100 WBC (Bld) 9.3 % Normal 1.7-12.[address] [facility] Comment on above: Performed By: #### C BC #### [facility] [address] [place] [address] Dr. Eran Chacon NEUT # 5.2 103/ul Normal 1.4-6.5 [facility] Comment on above: Performed By: #### C BC #### [facility] [address] [place] [address] Dr. Eran Chacon Neutrophils/100 WBC (Bld) 52.1 % Normal 43.0-75.[address] [facility] Comment on above: Performed By: #### C BC #### [facility] [address] [place] [address] Dr. Eran Chacon Platelet mean volume (Bld) [Entitic vol] 8.8 fL Critically low 9.5-13.[address] [facility] Comment on above: Performed By: #### C BC #### [facility] [address] [place] [address] Dr. Eran Chacon PLT 287 103/ul Normal 150-[address] [facility] Comment on above: Performed By: #### C BC #### [facility] [address] [place] [address] Dr. Eran Chacon RBC 5.37 106/ul Normal 4.70-6.[address] [facility] Comment on above: Performed By: #### C BC #### [facility] [address] [place] [address] Dr. Eran Chacon WBC 9.9 103/ul Normal 4.0-11.[address] [facility] Comment on above: Performed By: #### C BC #### [facility] [address] [place] [address] Dr. Eran Chacon ER URINE PROFILEon 2 Bilirubin Ql (U) Negative Normal NEGATIVE [facility] Comment on above: Performed By: #### E RUR, UMICRO #### [facility] [address] [place] [address] Dr. Eran Chacon Clarity (U) CLEAR Normal CLEAR [facility] Comment on above: Performed By: #### Med SHER UMICRO #### [facility] [address] [id number] [address] Eran Chacon Color (U) YELLOW Normal YELLOW [facility] Comment on above: Performed By: #### Med SHER UMICRO #### [facility] [address] [place] [address] Dr. Eran GATES A micrscopic examination will be performed if indicated. Normal [facility] Comment on above: Performed By: #### Med SHER UMICRO #### [facility] [address] [place] [address] Dr. Eran Chacon Glucose Ql (U) 500 mg/dl Abnormal NEGATIVE [facility] Comment on above: Performed By: #### Med SHER UMICRO #### [facility] [address] [place] [address] Dr. Eran Chacon Hemoglobin Ql (U) TRACE-INTACT Abnormal NEGATIVE [facility] Comment on above: Performed By: #### Med SHER UMICRO #### [facility] [address] [place] [address] Dr. Eran Chacon Ketones Ql (U) Negative Normal NEGATIVE [facility] Comment on above: Performed By: #### Med SHER UMICRO #### [facility] [address] [place] [address] Dr. Eran Chacon LEUKOCYTES Negative Normal NEGATIVE [facility] Comment on above: Performed By: #### Med SHER UMICRO #### [facility] [address] [place] [address] Dr. Eran Chacon Nitrite Ql (U) Negative Normal NEGATIVE [facility] Comment on above: Performed By: #### Med SHER UMICRO #### [facility] [address] [place] [address] Dr. Eran Chacon pH (U) 6.0 [pH] Normal 5-9 [facility] Comment on above: Performed By: #### Med SHER UMICRO #### [facility] [address] [place] [address] Dr. Eran Chacon SPEC GRAVITY 1.025 Normal 1.005-<=1.02 5 [facility] Comment on above: Performed By: #### HANNA BATES #### [facility] [address] [place] [address] Dr. Eran Chacon UA PROTEIN Negative Normal NEGATIVE/ TRACE [facility] Comment on above: Performed By: #### HANNA BATES #### [facility] [address] [place] [address] Dr. Eran Chacon UR MICRO IND INDICATED Normal [facility] Comment on above: Performed By: #### AHNNA BATES #### [facility] [address] [place] [address] Dr. Eran Chacon Urobilinogen Qn (U) 0.2 {Aureliano'U}/dL Normal 0.2 - 1. 0 [facility] Comment on above: Performed By: #### HANNA BATES #### [facility] [address] [place] [address] Dr. Eran Chacon PROF 14(COMP METB)on 022 Albumin [Mass/Vol] 4.0 g/dL Normal 3.4-5.0 [facility] Comment on above: Performed By: #### C MP #### [facility] [address] [place] [address] Dr. Eran Chacon Albumin/Globulin [Mass ratio] 1.2 {ratio} Normal [facility] Comment on above: Performed By: #### C MP #### [facility] [address] [place] [address] Dr. Eran Chacon ALP [Catalytic activity/Vol] 104 U/L Normal 46-[address] [facility] Comment on above: Performed By: #### C MP #### [facility] [address] [place] [address] Dr. Eran Chacon ALT [Catalytic activity/Vol] 28 U/L Normal 16-63 [facility] Comment on above: Performed By: #### C MP #### [facility] [address] [place], [place] [id number] Dr. Eran Chacon Anion gap [Moles/Vol] 7.2 mmol/L Normal [facility] Comment on above: Performed By: #### C MP #### [facility] [address] [address] [address] Eran Chacon AST [Catalytic activity/Vol] 14 U/L Critically low 15-37 [facility] Comment on above: Performed By: #### C MP #### [facility] [address] [address] [address] Eran Chacon Bilirubin [Mass/Vol] 0.4 mg/dL Normal 0.2-1.0 [facility] Comment on above: Performed By: #### C MP #### [facility] [address] [address] [address] Eran Chacon Calcium [Mass/Vol] 9.0 mg/dL Normal 8.5-10.1 [facility] Comment on above: Performed By: #### C MP #### [facility] [address] [place] [address] Dr. Eran Chacon Chloride [Moles/Vol] 103 mmol/L Normal 98-107 [facility] Comment on above: Performed By: #### C MP #### [facility] [address] [address] [address] Eran Chacon CO2 [Moles/Vol] 30.0 mmol/L Normal 21.0-32.0 [facility] Comment on above: Performed By: #### C MP #### [facility] [address] [address] [address] Eran Chacon Creatinine [Mass/Vol] 0.85 mg/dL Normal 0.70-1.[address] [facility] Comment on above: Performed By: #### C MP #### [facility] [address] [place] [address] Dr. Eran Chacon EGFR-AF BANGLADESHI >60 Normal >=60 [facility] Comment on above: Performed By: #### C MP #### [facility] [address] [place] [address] Dr. Eran Chacon EGFR-NON AF BANGLADESHI >60 Normal >=60 [facility] Comment on above: Performed By: #### C MP #### [facility] [address] [address] [address] Eran Chacon Globulin (S) [Mass/Vol] 3.3 g/dL Normal [facility] Comment on above: Performed By: #### C MP #### [facility] [address] [address] [address] Eran Chacon Glucose [Mass/Vol] 165 mg/dL Critically high 74-106 [facility] Comment on above: Performed By: #### C MP #### [facility] [address] [address] [address] Eran Chacon Potassium [Moles/Vol] 4.2 mmol/L Normal 3.5-5.1 [facility] Comment on above: Performed By: #### C MP #### [facility] [address] [address] [address] Eran Chacon Protein [Mass/Vol] 7.3 g/dL Normal 6.4-8.2 [facility] Comment on above: Performed By: #### C MP #### [facility] [address] [address] [address] Eran Chacon Sodium [Moles/Vol] 136 mmol/L Normal 136-145 [facility] Comment on above: Performed By: #### C MP #### [facility] [address] [address] [address] Eran Chacon Urea nitrogen [Mass/Vol] 10.0 mg/dL Normal 7.0-18.0 [facility] Comment on above: Performed By: #### C MP #### [facility] [address] [address] [address] Eran Chacon Urea nitrogen/Creatinine [Mass ratio] 11.8 mg/mg Normal [facility] Comment on above: Performed By: #### C MP #### [facility] [address] [address] [address] Eran Chacon URINE MICROSCOPIC ONLYon BACTERIA NONE SEEN Normal NONE SEEN [facility] Comment on above: Performed By: #### Med SHER UMICRO #### [facility] [address] [place] [address] Dr. Eran Chacon Bacteria identified Cx Nom (U) NOT INDICATED Normal [facility] Comment on above: Performed By: #### E NIKKY, UMICRO #### [facility] [address] [place] [address] Dr. Eran Chacon CAST NONE SEEN Normal NONE SEEN [facility] Comment on above: Performed By: #### E NIKKY UMICRO #### [facility] [address] [place] [address] Dr. Eran Chacon Crystals LM Nom (Urine sed) NONE SEEN Normal NONE SEEN [facility] Comment on above: Performed By: #### Med SHER UMICRO #### [facility] [address] [place] [address] Dr. Eran Chacon Epithelial cells LM Ql (Urine sed) RARE Normal NONE SEEN /RARE [facility] Comment on above: Performed By: #### Med SHER UMICRO #### [facility] [address] [place] [address] Dr. Eran Chacon MUCOUS NONE SEEN Normal NONE SEEN [facility] Comment on above: Performed By: #### Med SHER UMICRO #### [facility] [address] [place] [address] Dr. Eran Chacon RBC 0-2 Normal 0-[address] [facility] Comment on above: Performed By: #### Med SHER UMICRO #### [facility] [address] [place] [address] Dr. Eran Chacon WBC 2-5 Abnormal NONE SEEN [facility] Comment on above: Performed By: #### Med SHER UMICRO #### [facility] [address] [place] [address] Dr. Earn Chacon MRI SHOULDER LT WO CONon MRI [...] by: YEISON NAVAS Date: 2022-02-02 17:09 Normal [facility] Vital Signs Date Time Vital Sign Value Performing Clinician Facility 02-16-2025 14:47-0400 Body height 175.26 cm Jeremy Magallanes MD Work Phone: [facility] 02-16-2025 14:47-0400 Body mass index (BMI) [Ratio] 34 kg/m2 Jeremy Magallanes MD Work Phone: [facility] 02-16-2025 14:47-0400 Body weight 104.32 kg Jeremy Magallanes MD Work Phone: [facility] 02-16-2025 14:47-0400 Diastolic blood pressure 74 mm[Hg] Jeremy Magallanes MD Work Phone: [facility] 02-16-2025 14:47-0400 Heart rate 81 /min Jeremy Magallanes MD Work Phone: [facility] 02-16-2025 14:47-0400 Respiratory rate 12 /min Jeremy Magallanes MD Work Phone: [facility] 02-16-2025 14:47-0400 SaO2% (BldA) [Mass fraction] 97 % Jeremy Magallanes MD Work Phone: [facility] 02-16-2025 14:47-0400 Systolic blood pressure 120 mm[Hg] Jeremy Magallanes MD Work Phone: [facility] 01-21-2025 09:27-0400 Body height 175.26 cm [facility] 01-21-2025 09:27-0400 Body mass index (BMI) [Ratio] 34.1 kg/m2 [facility] 01-21-2025 09:27-0400 Body temperature 98.5 [degF] [facility] 01-21-2025 09:27-0400 Body weight 104.77 kg [facility] 01-21-2025 09:27-0400 Diastolic blood pressure 82 mm[Hg] [facility] 01-21-2025 09:27-0400 Heart rate 72 /min [facility] 01-21-2025 09:27-0400 SaO2% (BldA) [Mass fraction] 97 % [facility] 01-21-2025 09:27-0400 Systolic blood pressure 144 mm[Hg] [facility] 12-22-2024 08:21-0400 Body height 175.26 cm [facility] 12-22-2024 08:21-0400 Body mass index (BMI) [Ratio] 33.6 kg/m2 [facility] 12-22-2024 08:21-0400 Body temperature 98.6 [degF] [facility] 12-22-2024 08:21-0400 Body weight 103.41 kg [facility] 12-22-2024 08:21-0400 Diastolic blood pressure 81 mm[Hg] [facility] 12-22-2024 08:21-0400 Heart rate 71 /min [facility] 12-22-2024 08:21-0400 SaO2% (BldA) [Mass fraction] 94 % [facility] 12-22-2024 08:21-0400 Systolic blood pressure 143 mm[Hg] [facility] 10-15-2024 08:56-0500 Body height 175.26 cm [facility] 10-15-2024 08:56-0500 Body mass index (BMI) [Ratio] 34.5 kg/m2 [facility] 10-15-2024 08:56-0500 Body temperature 98 [degF] [facility] 10-15-2024 08:56-0500 Body weight 106.14 kg [facility] 10-15-2024 08:56-0500 Diastolic blood pressure 81 mm[Hg] [facility] 10-15-2024 08:56-0500 Heart rate 76 /min [facility] 10-15-2024 08:56-0500 Systolic blood pressure 136 mm[Hg] [facility] 07-23-2024 10:21-0500 Body height 175.26 cm [facility] 07-23-2024 10:21-0500 Body mass index (BMI) [Ratio] 34.2 kg/m2 [facility] 07-23-2024 10:21-0500 Body weight 105.23 kg [facility] 07-23-2024 10:21-0500 Diastolic blood pressure 75 mm[Hg] [facility] 07-23-2024 10:21-0500 Heart rate 73 /min [facility] 07-23-2024 10:21-0500 SaO2% (BldA) [Mass fraction] 97 % [facility] 07-23-2024 10:21-0500 Systolic blood pressure 133 mm[Hg] [facility] 06-17-2024 09:13-0400 Body height 175.26 cm MD Jeremy Magallanes Work Phone: [facility] 06-17-2024 09:13-0400 Body mass index (BMI) [Ratio] 33.5 kg/m2 MD Jeremy Magallanes Work Phone: [facility] 06-17-2024 09:13-0400 Body temperature 98.1 [degF] MD Jeremy Magallanes Work Phone: [facility] 06-17-2024 09:13-0400 Body weight 102.96 kg MD Jeremy Magallanes Work Phone: [facility] 06-17-2024 09:13-0400 Diastolic blood pressure 83 mm[Hg] MD Jeremy Magallanes Work Phone: [facility] 06-17-2024 09:13-0400 Heart rate 79 /min MD Jeremy Magallanes Work Phone: [facility] 06-17-2024 09:13-0400 Systolic blood pressure 149 mm[Hg] MD Jeremy Magallanes Work Phone: [facility] 05-27-2024 14:56-0400 Body height 175.3 cm [employer] EDUCATIONAL PSYCHOLOGY TEACHER-ASSISTANT PROFESSOR NURSE EDUCATION Work Phone: [facility] 05-27-2024 14:56-0400 Body mass index (BMI) [Ratio] 33.97 kg/m2 [employer] EDUCATIONAL PSYCHOLOGY TEACHER-ASSISTANT PROFESSOR NURSE EDUCATION Work Phone: [facility] 05-27-2024 14:56-0400 Body weight 104.33 kg [employer] EDUCATIONAL PSYCHOLOGY TEACHER-ASSISTANT PROFESSOR NURSE EDUCATION Work Phone: [facility] 04-07-2024 10:04-0400 Body height 180.3 cm Malathi Sanchez MD Work Phone: [facility] 04-07-2024 10:04-0400 Body mass index (BMI) [Ratio] 32.78 kg/m2 Malathi Sanchez MD Work Phone: [facility] 04-07-2024 10:04-0400 Body weight 106.59 kg Malathi Sanchez MD Work Phone: [facility] 04-07-2024 10:04-0400 Diastolic blood pressure 88 mm[Hg] Malathi Sanchez MD Work Phone: [facility] 04-07-2024 10:04-0400 Systolic blood pressure 184 mm[Hg] Malathi Sanchez MD Work Phone: [facility] 03-18-2024 08:46-0400 Body height 175.26 cm [facility] 03-18-2024 08:46-0400 Body mass index (BMI) [Ratio] 34.4 kg/m2 [facility] 03-18-2024 08:46-0400 Body weight 105.68 kg [facility] 03-18-2024 08:46-0400 Diastolic blood pressure 80 mm[Hg] [facility] 03-18-2024 08:46-0400 Heart rate 72 /min [facility] 03-18-2024 08:46-0400 Systolic blood pressure 130 mm[Hg] [facility] 03-03-2024 11:54-0400 Body height 175.26 cm [facility] 03-03-2024 11:54-0400 Body mass index (BMI) [Ratio] 34.7 kg/m2 [facility] 03-03-2024 11:54-0400 Body weight 106.59 kg [facility] 03-03-2024 11:54-0400 Diastolic blood pressure 81 mm[Hg] [facility] 03-03-2024 11:54-0400 Heart rate 69 /min [facility] 03-03-2024 11:54-0400 Systolic blood pressure 129 mm[Hg] [facility] 12-17-2023 08:54-0400 Body height 175.26 cm [facility] 12-17-2023 08:54-0400 Body mass index (BMI) [Ratio] 35.2 kg/m2 [facility] 12-17-2023 08:54-0400 Body weight 108.4 kg [facility] 12-17-2023 08:54-0400 Diastolic blood pressure 76 mm[Hg] [facility] 12-17-2023 08:54-0400 Heart rate 76 /min [facility] 12-17-2023 08:54-0400 Systolic blood pressure 154 mm[Hg] [facility] 12-05-2023 08:52-0400 Body height 175.26 cm [facility] 12-05-2023 08:52-0400 Body mass index (BMI) [Ratio] 35 kg/m2 [facility] 12-05-2023 08:52-0400 Body weight 107.67 kg [facility] 12-05-2023 08:52-0400 Diastolic blood pressure 78 mm[Hg] [facility] 12-05-2023 08:52-0400 Heart rate 69 /min [facility] 12-05-2023 08:52-0400 Systolic blood pressure 147 mm[Hg] [facility] 09-13-2023 13:30-0500 Body height 175.26 cm Jeremy Magallanes Other [facility] 09-13-2023 13:30-0500 Body mass index (BMI) [Ratio] 33.22 kg/m2 Jeremy Magallanes Other [facility] [facility] [employer] Other 09-13-2023 13:30-0500 Body temperature 98.4 [degF] Jeremy Magallanes Other [facility] [facility] [employer] Other 09-13-2023 13:30-0500 Body weight 102.06 kg Jeremy Magallanes Other [facility] [employer] Other 09-13-2023 13:30-0500 Body weight 102.05 kg [facility] 09-13-2023 13:30-0500 Diastolic blood pressure 80 mm[Hg] Jeremy Magallanes Other [facility] 09-13-2023 13:30-0500 SaO2% (BldA) [Mass fraction] 93 % Jeremy Magallanes Other [facility] [employer] Other 09-13-2023 13:30-0500 Systolic blood pressure 118 mm[Hg] Jeremy Magallanes Other [facility] 08-13-2023 10:30-0500 Body height 175.26 cm Jeremy Magallanes Other [employer] Other 08-13-2023 10:30-0500 Body mass index (BMI) [Ratio] 33.9 kg/m2 Jeremy Magallanes Other [employer] Other 08-13-2023 10:30-0500 Body weight 104.15 kg Jeremy Magallanes Other [employer] Other 08-13-2023 10:30-0500 Diastolic blood pressure 78 mm[Hg] Jeremy Magallanes Other [employer] Other 08-13-2023 10:30-0500 Systolic blood pressure 124 mm[Hg] Jereym Magallanes Other [employer] Other 06-25-2023 08:45-0500 Body height 175.26 cm Jeremy Magallanes Other [employer] Other 06-25-2023 08:45-0500 Body mass index (BMI) [Ratio] 33.37 kg/m2 Jeremy Magallanes Other [employer] Other 06-25-2023 08:45-0500 Body temperature 96.5 [degF] Jeremy Magallanes Other [employer] Other 06-25-2023 08:45-0500 Body weight 102.51 kg Jeremy Magallanes Other [employer] Other 06-25-2023 08:45-0500 Diastolic blood pressure 85 mm[Hg] Jeremy Magallanes Other [employer] Other 06-25-2023 08:45-0500 Systolic blood pressure 149 mm[Hg] Jeremy Magallanes Other [employer] Other 05-28-2023 10:45-0400 Body height 175.26 cm Jeremy Magallanes Other [employer] Other 05-28-2023 10:45-0400 Body mass index (BMI) [Ratio] 33.52 kg/m2 Jeremy Magallanes Other [employer] Other 05-28-2023 10:45-0400 Body weight 102.97 kg Jeremy Magallanes Other [employer] Other 05-28-2023 10:45-0400 Diastolic blood pressure 82 mm[Hg] Jeremy Magallanes Other [employer] Other 05-28-2023 10:45-0400 Systolic blood pressure 147 mm[Hg] Jeremy Magallanes Other [employer] Other 2023 08:45-0400 Body height 175.26 cm Jeremy Magallanes Other [employer] Other 2023 08:45-0400 Body mass index (BMI) [Ratio] 33.52 kg/m2 Jeremy Magallanes Other [employer] Other 2023 08:45-0400 Body weight 102.97 kg Jeremy Magallanes Other [employer] Other 2023 08:45-0400 Diastolic blood pressure 85 mm[Hg] Jeremy Magallanes Other [employer] Other 2023 08:45-0400 Systolic blood pressure 156 mm[Hg] Jeremy Magallanes Other [employer] Other 04-30-2023 09:45-0400 Body height 175.26 cm Jeremy Magallanes Other [employer] Other 04-30-2023 09:45-0400 Body mass index (BMI) [Ratio] 34.32 kg/m2 Jeremy Magallanes Other [employer] Other 04-30-2023 09:45-0400 Body temperature 96.2 [degF] Jeremy Magallanes Other [employer] Other 04-30-2023 09:45-0400 Body weight 105.42 kg Jeremy Magallanes Other [employer] Other 04-30-2023 09:45-0400 Diastolic blood pressure 78 mm[Hg] Jeremy Magallanes Other [employer] Other 04-30-2023 09:45-0400 Respiratory rate 16 /min Jeremy Magallanes Other [employer] Other 04-30-2023 09:45-0400 Systolic blood pressure 146 mm[Hg] Jeremy Magallanes Other [employer] Other 02-20-2023 09:15-0400 Body height 175.26 cm Jeremy Magallanes Other [employer] Other 02-20-2023 09:15-0400 Body mass index (BMI) [Ratio] 33.46 kg/m2 Jeremy Magallanes Other [employer] Other 02-20-2023 09:15-0400 Body weight 102.79 kg Jeremy Magallanes Other [employer] Other 02-20-2023 09:15-0400 Diastolic blood pressure 77 mm[Hg] Jeremy Magallanes Other [employer] Other 02-20-2023 09:15-0400 Systolic blood pressure 131 mm[Hg] Jeremy Magallanes Other [employer] Other 01-17-2023 08:45-0400 Body height 175.26 cm Jeremy Magallanes Other [employer] Other 01-17-2023 08:45-0400 Body mass index (BMI) [Ratio] 33.37 kg/m2 Jeremy Magallanes Other [employer] Other 01-17-2023 08:45-0400 Body weight 102.51 kg Jeremy Magallanes Other [employer] Other 01-17-2023 08:45-0400 Diastolic blood pressure 79 mm[Hg] Jeremy Magallanes Other [employer] Other 01-17-2023 08:45-0400 Systolic blood pressure 128 mm[Hg] Jeremy Magallanes Other [employer] Other 11-23-2022 09:30-0400 Body height 175.26 cm Jeremy Magallanes Other [employer] Other 11-23-2022 09:30-0400 Body mass index (BMI) [Ratio] 33.96 kg/m2 Jeremy Magallanes Other [employer] Other 11-23-2022 09:30-0400 Body weight 104.33 kg Jeremy Magallanes Other [employer] Other 11-23-2022 09:30-0400 Diastolic blood pressure 72 mm[Hg] Jeremy Magallanes Other [employer] Other 11-23-2022 09:30-0400 Systolic blood pressure 122 mm[Hg] Jeremy Magallanes Other [employer] Other 09-04-2022 11:30-0500 Body height 175.26 cm Jeremy Magallanes Other [employer] Other 09-04-2022 11:30-0500 Body mass index (BMI) [Ratio] 33.52 kg/m2 Jeremy Magallanes Other [employer] Other 09-04-2022 11:30-0500 Body weight 102.97 kg Jeremy Magallanes Other [employer] Other 09-04-2022 11:30-0500 Diastolic blood pressure 80 mm[Hg] Jeremy Magallanes Other [employer] Other 09-04-2022 11:30-0500 SaO2% (BldA) [Mass fraction] 95 % Jeremy Magallanes Other [employer] Other 09-04-2022 11:30-0500 Systolic blood pressure 122 mm[Hg] Jeremy Magallanes Other [employer] Other 02-06-2022 12:45-0400 Body height 175.26 cm Kesha Olexa Other [employer] Other 02-06-2022 12:45-0400 Body mass index (BMI) [Ratio] 31.01 kg/m2 Kesha Olexa Other [employer] Other 02-06-2022 12:45-0400 Body weight 95.26 kg Kesha Olexa Other [employer] Other 05-26-2021 13:15-0400 Body height 175.26 cm Harriet Ginty Other [employer] Other 05-26-2021 13:15-0400 Body mass index (BMI) [Ratio] 31.01 kg/m2 Harriet Ginty Other [employer] Other 05-26-2021 13:15-0400 Body temperature 98.3 [degF] Harriet Ginty Other [employer] Other 05-26-2021 13:15-0400 Body weight 95.26 kg Harriet Ginty Other [employer] Other 05-26-2021 13:15-0400 SaO2% (BldA) [Mass fraction] 96 % Harriet Ginty Other [employer] Other Encounters Encounter Date Encounter Type Care Provider Facility Start: 02-16-2025 End: 02-16-2025 ambulatory Jeremy Magallanes MD Work Phone: [facility] Work Phone: Start: 02-16-2025 End: 02-16-2025 Patient encounter procedure Jeremy Magallanes MD -[facility] Work Phone: Start: 01-21-2025 End: 01-21-2025 ambulatory [facility] Work Phone: Start: 01-21-2025 End: 01-21-2025 Patient encounter procedure [facility] Work Phone: Start: 12-23-2024 Non-patient / Non-visit [facility] Work Phone: Start: 12-22-2024 End: 12-22-2024 ambulatory [facility] Work Phone: Start: 12-22-2024 End: 12-22-2024 Patient encounter procedure [facility] Work Phone: Start: 11-23-2024 End: 11-23-2024 ambulatory Zacarias Pike MD Facility:[facility] Start: 11-04-2024 End: 11-05-2024 ambulatory Ligia DIOP Facility:[facility] Start: 11-04-2024 End: 11-05-2024 Patient encounter procedure Ligia DIOP [facility] Start: 11-04-2024 End: 11-05-2024 ambulatory Ligia DIOP Facility:[facility] Start: 10-15-2024 End: 10-15-2024 ambulatory [facility] Work Phone: Start: 10-15-2024 End: 10-15-2024 Patient encounter procedure [facility] Work Phone: Start: 10-12-2024 Non-patient / Non-visit [facility] Work Phone: Start: 10-11-2024 Non-patient / Non-visit [facility] Work Phone: Start: 08-26-2024 Non-patient / Non-visit [facility] Work Phone: Start: 08-17-2024 End: 08-17-2024 ambulatory Zacarias Pike MD Facility:[facility] Start: 07-23-2024 End: 07-23-2024 Patient encounter procedure [facility] Work Phone: Start: 07-21-2024 Non-patient / Non-visit [facility] Work Phone: Start: 07-20-2024 Non-patient / Non-visit [facility] Work Phone: Start: 06-17-2024 End: 06-17-2024 ambulatory MD Jeremy Magallanes Work Phone: [facility] Work Phone: Start: 06-17-2024 End: 06-17-2024 Patient encounter procedure MD Jeremy Magallanes Work Phone: [facility] Work Phone: Start: 06-12-2024 End: 06-12-2024 Orders Only Not In System Ref Prov [facility] Start: 06-10-2024 End: 06-10-2024 Orders Only [facility] Comment on above: Dysphagia, unspecifi ed type; Black stools Start: 06-03-2024 End: 06-03-2024 ambulatory MD Jeremy Magallanes Work Phone: [facility] Work Phone: Start: 06-03-2024 End: 06-03-2024 Departed Referred MD Jeremy Magallanes Work Phone: [facility] Start: 06-03-2024 Non-patient / Non-visit MD Angelina Magallanes Work Phone: [facility] Work Phone: Start: 05-27-2024 End: 05-27-2024 Office outpatient new 30 minutes Priyanka Rosalinda Vaz EDUCATIONAL PSYCHOLOGY TEACHER-ASSISTANT PROFESSOR NURSE EDUCATION Work Phone: [facility] Physicians General Surgery Comment on above: Dysphagia, unspecifi ed type (Primary Dx); Black stools; Gastroesophageal reflux disease, unspecified whether esophagitis present; Abnormal esophagram Start: 05-27-2024 End: 05-27-2024 ambulatory PRIYANKA Rosalinda VAZ [facility] Start: 05-18-2024 End: 05-18-2024 ambulatory Zacarias Pike MD Facility:[facility] Start: 05-14-2024 End: 05-21-2024 Telephone encounter [...] Facility: [facility] Start: 03-18-2024 End: 03-18-2024 ambulatory [facility] Work Phone: Start: 03-18-2024 End: 03-18-2024 Patient encounter procedure [facility] Physician [facility] Work Phone: Start: 03-16-2024 End: 03-16-2024 ambulatory Zacarias Pike MD Facility: [facility] Start: 03-03-2024 End: 03-03-2024 ambulatory [facility] Work Phone: Start: 03-03-2024 End: 03-03-2024 Patient encounter procedure [facility] Physician [facility] Work Phone: Start: 02-27-2024 Non-patient / Non-visit [facility] Physician [facility] Work Phone: Start: 02-24-2024 End: 02-24-2024 ambulatory Zacarias Pike MD Facility:[facility] Start: 02-03-2024 End: 02-03-2024 ambulatory Zacarias Pike MD Facility:[facility] Start: 01-20-2024 End: 01-20-2024 ambulatory Zacarias Pike MD Facility:[facility] Start: 12-17-2023 End: 12-17-2023 ambulatory [facility] Work Phone: Start: 12-17-2023 End: 12-17-2023 Patient encounter procedure [facility] Physician [facility] Work Phone: Start: 12-05-2023 End: 12-05-2023 ambulatory [facility] Work Phone: Start: 12-05-2023 End: 12-05-2023 Patient encounter procedure [facility] Work Phone: Start: 10-23-2023 Non-patient / Non-visit [facility] Physician [facility] Work Phone: Start: 10-08-2023 Non-patient / Non-visit [facility] Phys[facility] Work Phone: Start: 10-07-2023 End: 10-07-2023 ambulatory BARBIE TAPIA Not Available Start: 09-18-2023 End: 09-18-2023 ambulatory Jeremy Magallanes Other [facility] Other Start: 09-18-2023 Telephone encounter Jeremy Magallanes [facility] Start: 09-13-2023 End: 09-13-2023 ambulatory Jeremy Magallanes Other [facility] Other Start: 09-13-2023 Office outpatient vi sit 15 minutes Jeremy Magallanes [facility] Start: 09-13-2023 End: 09-13-2023 Patient encounter procedure [facility] Physician [facility]- Start: 09-11-2023 Telephone encounter Argentina Joel coleman PT Work Phone: [facility] [...] 09-10-2023 End: 09-10-2023 ambulatory Jeremy Magallanes Other [facility] Other Start: 09-10-2023 Telephone encounter Jeremy Magallanes [facility] Start: 09-06-2023 End: 09-06-2023 ambulatory Jeremy Magallanes Other [facility] Other Start: 09-06-2023 Telephone encounter Jeremy Magallanes [facility] Start: 09-02-2023 End: 09-02-2023 ambulatory JIN POCOS Not Available Start: 08-20-2023 End: 08-20-2023 ambulatory Jeremy Magallanes Other [facility] Other Start: 08-20-2023 Telephone encounter Jeremy Magallanes [facility] Start: 08-13-2023 End: 08-13-2023 ambulatory Jeremy Magallanes Other [facility] Other Start: 08-13-2023 Office outpatient vi sit 25 minutes Jeremy Magallanes [facility] Start: 08-13-2023 Telephone encounter Jeremy Magallanes [facility] Start: 08-06-2023 End: 08-06-2023 ambulatory Jeremy Magallanes Other [facility] Other Start: 08-06-2023 Telephone encounter Jeremy Magallanes [facility] Start: 07-29-2023 End: 07-29-2023 ambulatory BARBIE Tellez WILLIE Not Available Start: 07-22-2023 End: 07-22-2023 ambulatory Jeremy Magallanes Other [facility] Other Start: 07-22-2023 Telephone encounter Jeremy Magallanes [facility] Start: 07-19-2023 End: 07-19-2023 ambulatory Jeremy Magallanes Other [facility] Other Start: 07-19-2023 Telephone encounter Jeermy Magallanes [facility] Start: 07-18-2023 End: 07-18-2023 ambulatory Jeremy Magallanes Other [facility] Other Start: 07-18-2023 Telephone encounter Jeremy Magallanes [facility] Start: 07-02-2023 End: 07-02-2023 ambulatory Jeremy Magallanes Other [facility] Other Start: 07-02-2023 Office outpatient vi sit 15 minutes Jeremy Magallanes [facility] Start: 07-02-2023 Telephone encounter Jeremy Magallanes [facility] Start: 06-25-2023 End: 06-25-2023 ambulatory Jeremy Magallanes Other [facility] Other Start: 06-25-2023 Office outpatient vi sit 15 minutes Jeremy Magallanes [facility] Start: 06-21-2023 End: 06-21-2023 ambulatory Jeremy Magallanes Other [facility] Other Start: 06-21-2023 Encounter by edmond owen Jeremy Magallanes [facility] Start: 06-20-2023 End: 06-20-2023 ambulatory Jermey Magallanes Other [facility] Other Start: 06-20-2023 Telephone encounter Jeremy Magallanes [facility] Start: 06-17-2023 End: 06-17-2023 ambulatory Jeremy Magallanes Other [facility] Other Start: 06-17-2023 Telephone encounter Jeremy Magallanes [facility] Start: 06-10-2023 End: 06-10-2023 ambulatory Jeremy Magallanes Other [facility] Other Start: 06-10-2023 Telephone encounter Jeremy Magallanes [facility] Start: 06-03-2023 End: 06-03-2023 ambulatory Jeremy Magallanes Other [facility] Other Start: 06-03-2023 Telephone encounter Jeremy Magallanes [facility] Start: 05-30-2023 End: 05-30-2023 Patient encounter procedure Barbie Tapia [facility] Start: 05-28-2023 End: 05-28-2023 ambulatory Jeremy Magallanes Other [facility] Other Start: 05-28-2023 Office outpatient vi sit 15 minutes Jeremy Magallanes [facility] Start: 2023 End: 2023 ambulatory Jeremy Magallanes Other [facility] Other Start: 2023 Office outpatient vi sit 15 minutes Jeremy Magallanes [facility] Start: 05-16-2023 End: 05-16-2023 ambulatory Jeremy Magallanes Other [facility] Other Start: 05-16-2023 Telephone encounter Jeremy Magallanes [facility] Start: 04-30-2023 End: 04-30-2023 ambulatory Jeremy Magallanes Other [facility] Other Start: 04-30-2023 Office outpatient vi sit 15 minutes Jeremy Magallanes [facility] Start: 04-26-2023 End: 04-26-2023 ambulatory Jeremy Magallanes Other [facility] Other Start: 04-26-2023 Telephone encounter Jeremy Magallanes [facility] Start: 04-23-2023 End: 04-23-2023 ambulatory Jeremy Magallanes Other [facility] Other Start: 04-23-2023 Telephone encounter Jeremy Magallanes [facility] Start: 03-25-2023 End: 03-25-2023 ambulatory Jeremy Magallanes Other [facility] Other Start: 03-25-2023 Telephone encounter Jeremy Magallanes [facility] Start: 03-06-2023 End: 03-06-2023 ambulatory Jeremy Magallanes Other [facility] Other Start: 03-06-2023 Telephone encounter Jeremy Magallanes [facility] Start: 02-20-2023 End: 02-20-2023 ambulatory Jeremy Magallanes Other [facility] Other Start: 02-20-2023 Office outpatient vi sit 25 minutes Jeremy Magallanes [facility] Start: 02-05-2023 End: 02-05-2023 ambulatory Jeremy Magallanes Other [facility] Other Start: 02-05-2023 Telephone encounter Jeremy Magallanes [facility] Start: 01-21-2023 End: 01-21-2023 ambulatory Jeremy Magallanes Other [facility] Other Start: 01-21-2023 Telephone encounter Jeremy Magallanes [facility] Facility Service Manager Start: 01-17-2023 End: 01-17-2023 ambulatory Jeremy Magallanes Other [facility] Other Start: 01-17-2023 Office outpatient vi sit 15 minutes Jeremy Magallanes [facility] Start: 12-24-2022 End: 12-24-2022 ambulatory Jeremy Magallanes Other [facility] Other Start: 12-24-2022 Telephone encounter Jeremy Magallanes [facility] Start: 12-03-2022 End: 12-03-2022 ambulatory Jeremy Magallanes Other [facility] Other Start: 12-03-2022 Telephone encounter Jeremy Magallanes [facility] Start: 11-27-2022 End: 11-27-2022 ambulatory Jeremy Magallanes Other [facility] Other Start: 11-27-2022 Telephone encounter Jeremy Magallanes [facility] Start: 11-26-2022 End: 11-26-2022 ambulatory Jeremy Magallanes Other [facility] Other Start: 11-26-2022 Telephone encounter Jeremy Magallanes [facility] Start: 11-24-2022 End: 11-25-[address] JEREMY MAGALLANES Facility: Start: 11-23-2022 End: 11-23-2022 ambulatory Jeremy Magallanes Other [facility] Other Start: 11-23-2022 Office outpatient vi sit 15 minutes Jeremy Magallanes [facility] Start: 11-05-2022 End: 11-05-2022 ambulatory Jeremy Magallanes Other [facility] Other Start: 11-05-2022 Telephone encounter Jeremy Magallanes [facility] Start: 10-03-2022 End: 10-03-2022 ambulatory Jeremy Magallanes Other [facility] Other Start: 10-03-2022 Telephone encounter Jeremy Magallanes [facility] Start: 09-04-2022 End: 09-04-2022 ambulatory Jeremy Magallanes Other [facility] Other Start: 09-04-2022 Office outpatient vi sit 25 minutes Jeremy Magallanes [facility] Start: 07-26-[address] JEREMY MAGALLANES Facil ity:[facility]1 Start: 07-19-2022 End: 07-20-[address] WILFREDO ENGLE Facility:[facility] Start: 06-07-2022 End: 06-07-[address] JEREMY MAGALLANES Facility:[facility] Start: 03-15-2022 ambulatory KESHA ESCOBEDO Facility:[facility] 1 Start: 02-06-2022 End: 02-06-2022 ambulatory Kesha Olexa Other [facility] Other Start: 02-06-2022 Office outpatient vi sit 25 minutes Kesha Zacharyxa [facility] Start: 02-02-2022 End: 02-03-2022 ambulatory KESHA OLEDANE Facility:[facility] Start: 12-28-2021 End: 12-28-[address] JEREMY MAGALLANES Facility:[facility] Start: 12-12-2021 End: 12-13-2021 ambulatory KESHA OLEXA [facility] Other Start: 12-12-2021 Office outpatient ne w 30 minutes Kesha Olexa [facility] Start: 05-26-2021 Office outpatient vi sit 15 minutes Harriet Ginty [facility] Procedures Date Procedure Procedure Detail Performing Clinician Start: 06-03-2024 Esophagogastroduodenoscopy Priyanka vázquez EDUCATIONAL PSYCHOLOGY TEACHER-ASSISTANT PROFESSOR NURSE EDUCATION Work Phone: Start: 06-03-2024 Level i surg [...] Td Vaccines (3 - Td or Tdap) [facility] Start: 05-27-2025 Adult BMI Screening Adult BMI Screening [facility] Start: 05-27-2025 Tobacco Screening Tobacco Screening [facility] Start: 10-15-2024 Patient referral [facility] Work Phone: Start: 04-19-2024 Influenza vaccination Influenza Vaccine [facility] Start: 04-07-2024 End: 04-07-2024 Patient encounter procedure 04/07/2024 10:30 AM EDT Office Visit [facility] [address] [facility] [address] [place] [id number] Malathi Sanchez MD [address] [place] [address] Arrived [facility] Comment on above: Arrived Start: 03-18-2024 Patient referral [facility] Work Phone: Start: 10-07-2023 End: 10-07-2023 Patient encounter procedure 10/07/2023 8:00 AM EST Office Visit [facility] [address] [place] [address] Barbie Tapia DO [address] [place] [address] [facility] Start: 2010 Administration of varicella zoster vaccine Zoster (Shingles) Vaccine (1 of 2) [facility] Start: 1978 Adult BMI Follow Up Plan Adult BMI Follow Up Plan [facility] Start: 1972 Depression Screening Depression Screening [facility] Start: 1960 Tobacco Counseling Tobacco Counseling [facility] Comprehensive metabo lic 2000 panel - Serum or Plasma [facility] CT Chest WO contrast Firelan ds [facility] CT Neck W contrast IV Fire[facility] End: 05-27-2025 Esophagogastroduodenoscopy EGD GI Routine Dysphagia, unspecified type Black stools 1 Occurrences starting 05/27/2024 until 05/27/2025 [facility] Work Phone: Comment on above: 1 Occurrences starting 05/27/2024 until 05/27/2025 Patient referral [facility] Work Phone: XR Pelvis and Hip - bilateral Views [facility] Immunizations Immunization Date Immunization Notes Care Provider Fa [facility] 06-02-2018 Influenza, injectabl e, Madin [place] Canine Kidney, preservative free, quadrivalent Argentina Clinton PT Work Phone: [facility] 06-02-2018 influenza virus vaccine, unspecified formulation Priyanka العليoll EDUCATIONAL PSYCHOLOGY TEACHER-ASSISTANT PROFESSOR NURSE EDUCATION Work Phone: [facility] [employer] 05-17-2017 influenza virus vaccine, split virus (incl. purified surface antigen) Jeremy Magallanes Other [facility] Other 05-17-2017 influenza virus vaccine, unspecified formulation [facility] 05-16-2017 influenza, injectabl e, quadrivalent, preservative free Argentina Clinton PT Work Phone: [facility] 06-28-2016 influenza, injectabl e, quadrivalent, preservative free Argentina Clinton PT Work Phone: [facility] 06-28-2016 tetanus and diphther ia toxoids, adsorbed, preservative free, for adult use (5 Lf of tetanus toxoid and 2 Lf of diphtheria toxoid) Jeremy Magallanes Other [facility] 05-25-2015 influenza, seasonal, injectable, preservative free Argentina Clinton PT Work Phone: [facility] 05-25-2015 tetanus and diphther ia toxoids, adsorbed, preservative free, for adult use (5 Lf of tetanus toxoid and 2 Lf of diphtheria toxoid) Jeremy Magallanes Other [facility] 06-15-1999 pneumococcal conjuga te vaccine, 7 valent Argentina Clinton PT Work Phone: [facility] Payers Date Payer Category Payer Medicaid [id number] 2013 Medicare [id number] 1960 Unknown [id number] 2.16.84 0.1.909980.3.579.2.593 1960 Unknown [id number] 2.16.84 0.1.871490.3.579.2.593 1960 Unknown [id number] 2.16.84 0.1.720714.3.579.2.593 1960 Unknown [id number] 2.16.84 0.1.830794.3.579.2.593 1960 Unknown [id number] 2.16.84 0.1.819412.3.579.2.593 1960 Unknown [id number] 2.16.84 0.1.573249.3.579.2.593 1960 Unknown [id number] 2.16.84 0.1.338436.3.579.2.593 1960 Unknown [id number] 2.16.84 0.1.658687.3.579.2.593 1960 Unknown [id number] 2.16.84 0.1.520550.3.579.2.1259 1960 Unknown [id number] 2.16.84 0.1.622533.3.579.2.1259 1960 Unknown [id number] 2.16.84 0.1.812166.3.579.2.1259 1960 Unknown [id number] 2.16.84 0.1.012189.3.579.2.1259 1960 Unknown [id number] 2.16.840 .1.290780.3.579.2.1259 1960 Unknown [id number] 2.16.8 40.1.939843.3.579.2.1286 1960 Unknown [id number] 2.16.8 40.1.291095.3.579.2.727 1960 Unknown [id number] 2.16.8 40.1.346541.3.579.2.727 1960 Unknown [id number] 2.16. 840.1.405570.3.579.2.196 1960 Unknown [id number] 2.16. 840.1.126724.3.579.2.196 1960 Unknown [id number] 2.16. 840.1.486384.3.579.2.196 1960 Unknown [id number] 2.16. 840.1.096305.3.579.2.196 1960 Unknown [id number] 2.16. 840.1.145159.3.579.2.196 1960 Unknown [id number] 2.16. 840.1.794995.3.579.2.196 1960 Unknown [id number] 2.16. 840.1.594843.3.579.2.196 1960 Unknown [id number] 2.16. 840.1.266654.3.579.2.196 1959 Medicaid [id number] 2. 16.840.1.694770.19 1959 Medicare [id number] 2.1 [id number] Self-pay [id number] Social History Date Type Detail Facility Start: 09-29-2020 End: 09-02-2023 Sex Assigned At [facility] Tobacco smoking status [facility] Start: 06-03-2019 End: 03-27-2023 Tobacco smoking status IDIS Smokes tobacco daily [facility] Work Phone: History of tobacco use Cigarette Smoker [facility] Start: 09-29-2020 End: 03-27-2023 Cigarettes smoked current (pack per day) - Reported 0.5 [facility] Start: 06-03-2019 End: 03-27-2023 Tobacco use and exposure Smokeless tobacco non-user [facility] Start: 09-02-2023 End: 05-27-2024 Alcohol intake Lifetime non-drinker (finding) [facility] Start: 03-27-2023 Alcohol Comment Caffine- Soda [facility] Start: 1960 Sex Assigned At Male [facility] Start: 08-21-2023 Gender identity Identifies as male gender (finding) [facility] Start: 08-21-2023 Sexual orientation Heterosexual (finding) [facility] Start: 02-06-2017 End: 02-16-2025 Tobacco smoking status [facility] Ex-smoker (finding) [facility] Tobacco smoking stat [facility] Tobacco smoking consumption unknown [facility] Start: 1960 Sex assigned at Not on file [facility] Frequency of Alcohol Consumption Never [facility] Start: 06-01-2019 End: 01-21-2025 Sex Male (finding) [facility] Medical Equipment Procedure Code Equipment Code Equipment Origin al Text Equipment Identifier Dates Accu-Chek FastCl ix Lancet - Blood Sugar Diagnostic (Accu-Chek Ya Plus Test Strp) strip Start: 11-06-2024 Lancets (Accu-Ch ek Fastclix Lancet Drum) [facility] Start: 10-28-2024 Blood Sugar Diagnostic (Accu-Chek Ya Plus Test Strp) strip Start: 11-04-2024 End: 11-05-2024 Blood Sugar Diagnostic (Accu-Chek Ya Plus Test Strp) strip Start: 11-05-2024 End: 11-05-2024 Blood Sugar Diagnostic (Accu-Chek Ya Plus Test Strp) strip Start: 11-05-2024 End: 11-06-2024 Lancets (Accu-Ch ek Fastclix Lancet Drum) [facility] Start: 10-26-2024 End: 10-27-2024 Lancets (Accu-Ch ek Fastclix Lancet Drum) misc Start: 10-27-2024 End: 10-28-2024 Blood Sugar Diagnostic (Accu-Chek Ya Plus Test Strp) strip Start: 11-06-2024 Lancets (Accu-Ch ek Fastclix Lancet Drum) misc Start: 10-28-2024 Blood Sugar Diagnostic (Accu-Chek Ya Plus Test Strp) strip Start: 11-04-2024 End: 11-05-2024 Blood Sugar Diagnostic (Accu-Chek Ya Plus Test Strp) strip Start: 11-05-2024 End: 11-05-2024 Blood Sugar Diagnostic (Accu-Chek Ya Plus Test Strp) strip Start: 11-05-2024 End: 11-06-2024 Lancets (Accu-Ch ek Fastclix Lancet Drum) misc Start: 10-26-2024 End: 10-27-2024 Lancets (Accu-Ch ek Fastclix Lancet Drum) misc Start: 10-27-2024 End: 10-28-2024 Blood Sugar Diagnostic (Accu-Chek Ya Plus Test Strp) strip Start: 11-06-2024 Lancets (Accu-Ch ek Fastclix Lancet Drum) misc Start: 10-28-2024 Blood Sugar Diagnostic (Accu-Chek Ya Plus Test Strp) strip Start: 11-04-2024 End: 11-05-2024 Blood Sugar Diagnostic (Accu-Chek Ya Plus Test Strp) strip Start: 11-05-2024 End: 11-05-2024 Blood Sugar Diagnostic (Accu-Chek Ya Plus Test Strp) strip Start: 11-05-2024 End: 11-06-2024 Lancets (Accu-Ch ek Fastclix Lancet Drum) misc Start: 10-26-2024 End: 10-27-2024 Lancets (Accu-Ch ek Fastclix Lancet Drum) misc Start: 10-27-2024 End: 10-28-2024 Clinical Notes 05-26-2021 to 12-22-2024 Note Date & Type Note Facility 12-22-2024 Evaluation note Diagnosis Onset Date Resolution Bronchitis acute December 22, 2024 8:19am Bruising acute December 22, 2024 8:19am Enlarged prostate acute December 8:19am Screening PSA (prostate specific antigen) acute December 22, 2024 8:19am Type II diabetes mellitus acute December 22, 2024 8: 19am [facility] Work Phone: 1(768) 859-624305-06-2025 Evaluation note* Diagnosis Onset Date Resolution Status Admit Date Bronchitis acute December 22, 2024 8:19am Bruising acute December 22, 2024 8:19am Enlarged prostate acute December 8:19am Screening PSA (prostate spec ific antigen) acute December 22, 2024 8: 19am Type II diabetes mellitus acute December 22, 2024 8:19am Bronchitis acute January 21, 2025 9:26am [facility] Work Phone: 1(580) 985-346603-19-2025 NoteProgress Note-Nurse LVM to talk about A1C level, he will be getting a one year card but will have to talk with his PCP about getting that number down.[facility] 10-15-2024 Evaluation note* Diagnosis Onset Date Resolution Status Admit Date Bladder diverticulum acute 2024 8:52am Enlarged prostate acute 2024 8:52am Lymphadenopathy acute October 15, 2024 8:52am Urticaria acute October 15, 2024 8:52am Bruising acute December 22, 2024 8:19am Enlarged prostate acute December 8:19am Screening PSA (prostate spec ific antigen) acute December 22, 2024 8: 19am Type II diabetes mellitus acute December 22, 2024 8:19am [facility] Work Phone: 1(925) 242-683712-05-2024 Evaluation note* Diagnosis Onset Date Resolution Status Admit Date GERD (gastroesophageal reflu x disease) acute July 23 10:18am Lymphadenopathy acute July 23, 2024 10:18am Mass of left submandibular region acute July 23 10:18am Bladder diverticulum acute 2024 8:52am Enlarged prostate acute 2024 8:52am Lymphadenopathy acute October 15, 2024 8:52am [facility] Work Phone: 1(279) 363-357110-25-2024 Miscellaneous Notes* Telephone Encounter - Evelyn Mendoza [...] Address verified with patient. documented [id number] Telephone encounter Note* Telephone Encounter - Evelyn [...] esophageal cancer. Thanks, Dr. Kc [facility]10-25-2024 Telephone encounter Note* Telephone Encounter - Evelyn Mendoza CMA - 06/12/2024 12:00 PM EDT Spoke with patient regarding pathology results. Patient verbally understood with no further questions. 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 Address verified with patient. [facility]10-09-2024 History of Present illness Narrative* Priyanka Vaz, EDUCATIONAL PSYCHOLOGY TEACHER-ASSISTANT PROFESSOR NURSE EDUCATION - 05/27/2024 2:30 PM EDT Images from [...] gallbladder polyp. He saw Dr. Martinez in [place] for this. He also reports a positive [...] confusion. Past Medical History: Diagnosis Date Cancer ([facility]) Chronic back pain COPD (chronic obstructive pulmonary disease) [place] Dental disease full dentures Diabetes mellitus ([facility]) Shortness of breath Skin cancer MELANOMA & [...] patient/family/caregiver Referring and communicating with other health housekeeper child care Dysphagia, unspecified type [R13.10] CHARLEE BIGGS [facility] Physicians General Surgery [place] This note was created with the assistance of a speech recognition program. While intending to generate a timely document that accurately reflects the content of the visit, no guarantee can be provided that every grammatical or spelling mistake has been or will be identified or corrected. Thank you for your understanding. CHARLEE Biggs 05/27/24 1555 documented [facility] Telephone encounter Note* Telephone Encounter - Vivian Morley - 05/15/2024 11:35 AM EDT Images from the original note were not included. Consult from Dr. Jeremy Magallanes (Internal Medicine) [facility] Referral received from PCP [...] completed: 04/08/2024 Barium Swallow 03/21/2024 CT Chest [facility]09-27-2024 Miscellaneous Notes* Telephone Encounter - Vivian Morley - 05/15/2024 11:35 AM EDT Images from the original note were not included. Consult from Dr. Jeremy Magallanes (Internal Medicine) [facility] Referral received from PCP [...] included. [facility] [facility] for new consult with Dr Meraz Please see below and advise [facility] Tele[facility] encounter Note * Telephone Encounter - Keily Martines - 05/14/2024 1:07 PM EDT Images from the original note were not included. Referral was sent from [facility] for new consult with Dr Meraz Please see below and advise [facility]09-16-2024 Telephone encounter Note* Telephone Encounter - Cynthia Sanchez - 05/04/2024 9:45 AM EDT Left message on sister's voice mail to contact Dr Magallanes's office for referral. [id number] Miscellaneous Notes* Telephone Encounter - Cynthia Sanchez [...] referral sent to Dr Ameya Meraz at [facility]. He is a gastrologist. The fax number is [phone] . Pt's sister would like a call back at [phone]. documented in this encounterCox [id number] Telephone encounter Note* Telephone Encounter - Malathi Sanchez MD - 05/04/2024 9:27 AM EDT That needs to be done by Dr Magallanes's office [id number] Telephone encounter Note* Telephone Encounter - Cynthia Sanchez - 05/04/2024 9:15 AM EDT Pt's sister called in. She said her brother would like a referral sent to Dr Ameya Meraz at [facility]. He is a gastrologist. The fax number is [phone] . Pt's sister would like a call back at [phone]. [facility] [id number] History of Present illness Narrative* Malathi Sanchez MD - 04/07/2024 10:30 AM EDT Subjective Patient ID: Alex Craig is a 63 y.o. male who presents for Neck Mass (CT @ [facility] 02/26>[facility]) Pt reports he is getting food [...] History: Procedure Laterality Date ADENOIDECTOMY BACK SURGERY 1984 CARPAL TUNNEL RELEASE Left 09/12/2015 EXCISION skin [...] resolved. F/U if recurs documented in this [facility]02-14-2024 Telephone encounter Note* Telephone Encounter - Maris Tavera - 10/02/2023 1:35 PM EST No attempts to hear back; closing referral. [facility] [id number] Miscellaneous Notes* Telephone Encounter - Maris Tavera - 10/02/2023 1:35 PM EST No attempts to hear back; closing referral. documented in this [facility]01-26-2024 Evaluation note* Encounter Date Diagnosis Assessment Notes Treatment Notes Treatment Clinical Notes Aug, Chronic obstructive pulmonary disease, unspecified (ICD-10 - J44.9) Finish antibiotics and prednisone as prescribed. Denies pulmonary referral at this time. Hasn't smoked since 09/08 and declines chantix or patches. Aug, Current smoker (ICD-10 - F17.200) [facility] 01-23-2024 Evaluation note* Encounter Date Diagnosis Assessment Notes Treatment Notes Treatment Clinical Notes Aug, Lumbar radicular pain (ICD-10 - M54.16) [facility] Other 01-19-2024 Evaluation note* Encounter Date Diagnosis Assessment Notes Treatment Notes Treatment Clinical Notes Aug, Lumbar radicular pain (ICD-10 - M54.16) [facility] Other 12-26-2023 Evaluation note* Encounter Date Diagnosis Assessment Notes Treatment Notes Treatment Clinical Notes Jul, Type 2 diabetes mellitus with hyperglycemia, without long-term current use of insulin (ICD-10 - E11.65) [facility] Other 12-26-2023 Evaluation note* Encounter Date Diagnosis [...] T3s after shoulder pain has improved post-operatively. [facility] Other 12-04-2023 Evaluation note* Encounter Date Diagnosis Assessment Notes Treatment Notes Treatment Clinical Notes Jul, Type 2 diabetes mellitus with hyperglycemia, without long-term current use of insulin (ICD-10 - E11.65) [facility] Other 12-01-2023 Evaluation note* Encounter Date Diagnosis Assessment Notes Treatment Notes Treatment Clinical Notes Jul, Type 2 diabetes mellitus with hyperglycemia, without long-term current use of insulin (ICD-10 - E11.65) [facility] Other 11-30-2023 Evaluation note* Encounter Date Diagnosis Assessment Notes Treatment Notes Treatment Clinical Notes Jun, Labral tear of shoulder, right, subsequent encounter (ICD-10 - S43.431D) [facility] Other 11-14-2023 Evaluation note* Encounter Date Diagnosis [...] pain (ICD-10 - R07.9) r/o cardiac cause [facility] Other 11-07-2023 Evaluation note* Encounter Date Diagnosis [...] to decrease dose and possibly discontinue medication. [facility] Other 11-02-2023 Evaluation note* Encounter Date Diagnosis Assessment Notes Treatment Notes Treatment Clinical Notes Jun, Acute pain of right shoulder (ICD-10 - M25.511) [facility] Other 10-30-2023 Evaluation note* Encounter Date Diagnosis Assessment Notes Treatment Notes Treatment Clinical Notes May, Acute pain of right shoulder (ICD-10 - M25.511) [facility] Other 10-23-2023 Evaluation note* Encounter Date Diagnosis Assessment Notes Treatment Notes Treatment Clinical Notes May, Acute pain of right shoulder (ICD-10 - M25.511) [facility] Other 10-16-2023 Evaluation note* Encounter Date Diagnosis Assessment Notes Treatment Notes Treatment Clinical Notes May, Acute pain of right shoulder (ICD-10 - M25.511) [facility] Other 10-10-2023 Evaluation note* Encounter Date Diagnosis Assessment Notes Treatment Notes Treatment Clinical Notes May, Acute pain of right shoulder (ICD-10 - M25.511) MRI and surgery planning pending. Pt understands this is a controlled substance and to call in 1 week w update on treatment plan. May, Bronchitis (ICD-10 - J40) Finish antibiotic, rest, hydrate Steroids for wheezing. [facility] Other 10-04-2023 Evaluation note* Encounter Date Diagnosis Assessment Notes Treatment Notes Treatment Clinical Notes May, Acute pain of right shoulder (ICD-10 - M25.511) Reviewed [place]AR[place] and discussed short term plan of increase in pain medication. He is due for a refill of the T3s presently. Stop them, replace w norco. Pt understands weekly prescription and will need to d/c after anticipated surgery. [facility] Other 09-12-2023 Evaluation note* Encounter Date Diagnosis [...] office and the ER visit on 04/26 [facility] Other 07-05-2023 Evaluation note* Encounter Date Diagnosis [...] and will need less prn pain med. [facility] Other 06-01-2023 Evaluation note* Encounter Date Diagnosis Assessment Notes Treatment Notes Treatment Clinical Notes Jan, RUQ pain (ICD-10 - R10.11) Discussed differential. continues to decline c-scope. start w labs and GBUS. Jan, Other chronic pain (ICD-10 - G89.29) Jan, Pain in right shoulder (ICD-10 - M25.511) Pt requests referral to Dr. Willie parsons for intrarticular injections. Jan, Pain in left shoulder (ICD-10 - M25.512) as above. [facility] Other 04-17-2023 Evaluation note* Encounter Date Diagnosis Assessment Notes Treatment Notes Treatment Clinical Notes Nov, Bronchitis (ICD-10 - J40) [facility] Other 04-11-2023 Evaluation note* Encounter Date Diagnosis Assessment Notes Treatment Notes Treatment Clinical Notes Nov, Disc degeneration, lumbar (ICD-10 - M51.36) Nov, Lumbar radicular pain (ICD-10 - M54.16) [facility] Other 04-07-2023 Evaluation note* Encounter Date Diagnosis [...] quit smoking. Pt verbalizes understanding and agreement. [facility] Other 02-15-2023 Evaluation note* Encounter Date Diagnosis Assessment Notes Treatment Notes Treatment Clinical Notes Sep, Lumbar radicular pain (ICD-10 - M54.16) [facility] Other 01-17-2023 Evaluation note* Encounter Date Diagnosis [...] is outlined on the test result page. [facility] Other 10-20-2022 NoteIndication: Calculus in kidney. Comparison: [...] authenticated by: JOHN PINTO Date: 2022-06-07 20:07[facility]06-21-2022 Evaluation note* Encounter Date Diagnosis Assessment [...] of infection, hardware pullout, cuff repair failure, joint terminal attack controller pain and stiffness are well known problems [...] of repair, infection and wound healing delays. [facility] Other 04-26-2022 NotePROCEDURE: XR SHOULDER LT 2V or > COMPARISON: None. HISTORY: Pain of left shoulder joint FINDINGS: BONES:No acute fracture or dislocation. 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 No visible soft tissue swelling. EFFUSION:None visible. OTHER: Negative. IMPRESSION: Mild osteoarthritis Electronically authenticated by: BARBIE MEMBRENO Date: 2021-12-12 15:25[facility] [id number] Evaluation note* Encounter Date Diagnosis Assessment Notes [...] pain of left shoulder (ICD-10 - M25.512) [facility] Other 10-08-2021 Evaluation note* Encounter Date Diagnosis [...] as needed for cough. Advised patient that [place] contains antihistamine and cough suppressant and to be cautious using other OTC cold medications. Patient to follow up with PCP if symptoms do not improve. Immediate eval if SOB, difficulty breathing, chest pain, dizziness, or other concerning symptoms. Patient verbalizes understanding and is agreeable to treatment plan [facility] [employer] Other Evaluation + Plan note No data available for this section [facility] SystemEvaluation noteNo InformationNortSCI-[facility] [employer] Other Evaluation note* Diagnosis Onset Date Resolution Status Arthralgia acute Lumbar pain acute Type II diabetes mellitus ac [facility] Work Phone: Evaluation note* Diagnosis Onset Date Resolution Status Arthralgia acute Lumbar pain acute Type II diabetes mellitus ac hoh Bilateral hip pain acute [facility] Work Phone: Evaluation note* Diagnosis Onset Date Resolution Status Arthralgia acute Lumbar pain acute Type II diabetes mellitus ac hoh Bilateral hip pain acute Lumbar pain [facility] Work Phone: Evaluation note* Diagnosis Onset Date Resolution Status Submandibular abscess acute Chronic obstructive pulmonary disease, unspecified acute Esophageal abnormality acute Mass of left submandibular region [facility] Work Phone: Evaluation note* Diagnosis Onset Date Resolution Status Chronic obstructive pulmonary disease, unspecified acute Esophageal abnormality acute Mass of left submandibular region [facility] Work Phone: Evaluation note* Diagnosis Onset Date Resolution Status 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 Hiatal hernia [facility] Work Phone: Evaluation note* Diagnosis Esophageal dysphagia- Primary Dysphagia, pharyngoesophageal phase Neck mass Swelling, mass, or lump in head and neck documented in this encounter [facility] HealthcareEvaluation note* Diagnosis Dysphagia, unspecified type- Primary Black stools Nonspecific abnormal finding in stool contents Gastroesophageal reflux disease, unspecified whether esophagitis present Abnormal esophagram documented in this encounter [facility] SystemEvaluation [facility]* Diagnosis Dysphagia, unspecified type Black stools Nonspecific abnormal finding in stool contents documented in this encounter [facility] SystemHistory general Narrative - Reported* Type Description Date Medical History Asthma Medical History skin cancer-lip Surgical History Left lung biopsy 1977 Surgical History L4 and L5 disc fusion 1984 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 Surgical History carpal tunnel release 2016 Surgical History tonsillectomy Hospitalization History 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 Hospitalization History pneumonia [facility] [employer] Other Hospital Discharge instructions No data available for this section [facility] SystemHospital Discharge instructionsAmbulatory Orders* Referral to ENT Time Frame: 03/18/24, Location: None [facility] Work Phone: Hospital Discharge instructionsAmbulatory Orders* Referral to Urology Time Frame: 10/15/24, Location: None [facility] Work Phone: InstructionsNot on filedocumented in this encounter [facility] SystemInstructionsNot on filedocumented in this encounter [facility] SystemInstructionsNot on filedocumented in this encounter [facility] SystemProgress note No data available for this section [facility] SystemReason for referral (narrative)No reason for referral information availableMarion Hospital Work Phone: Summary Purpose Family History Relationship Condition Age at Onset Recorded Date/T alayna father Unknown Malignant neoplasm Unknown Not Specified Unknown Relationship Condition Age at Onset Recorded Date/T alayna father Unknown Malignant neoplasm Unknown mother Unknown Advance Directives Advance Directive Response Recorded Date/ Time Advance Directives No January 25 2 9:53am Advance Directive Response Recorded Date/ Time Advance Directives No January 25 2 8:53am Reason for Referral Reason *FU 02/27 Epigastr ic pain, gall bladder polyp. Agrees to treatment, except colonoscopy. Last OV and today, labs and US scanned into chart. thanks Diagnosis 1 Epigastric abdominal pain (R10.13) Referral Organization [facility] Referring Provider First Name Jeremy Referring Provider Last Name Sona Referring Provider Specialty Family [facility] Referred Organization [facility] Referred Provider Sai Martinez Referred Address ,[place], [place],[address] Referred Provider Specialty Surgery Referral Priority Routine General Notes sE Camilo 11:38:02 AM >received today, attachments made, notes locked, referral faxed Reason 01/28/23 Access Or tho - B shoulder pain L>R - hopes for injections. Diagnosis 1 Pain in right should er (M25.511) Referral Organization [facility] Referring Provider First Name Jeremy Referring Provider Last Name Sona Referring Provider [facility] Referred Organization [facility] Referred Provider Barbie Tapia Referred Address ,[place], [place],[address] Referred Provider Specialty Orthopaedic Surgery Referral Priority [...] in right should er (M25.511) Referral Organization [facility] Referring Provider First Name Jeremy Referring Provider Last Name Sona Referring Provider [facility] Referred Organization [facility] Referred Provider Barbie Tapia Referred Address ,[place], [place],[address] Referred Provider Specialty Orthopaedic Surgery Referral Priority [...] hernia Chief Complaint Admit Date Amb Documentation July 20, 2024 1 :08pm CC Adult Risk Stratification [...] 2024 8:52am Lymphadenopathy October 15, 2024 8:52am Chief Complaint Admit Date Amb Documentation October 12, 2024 2:17pm TBH: back pain/swollen glands September 202024 8:52am URI December 22, 2024 8:19am Reason for Visit Admit Date Bladder diverticulum October 15, 2024 8:52am Enlarged prostate October 15, 2024 8:52am Lymphadenopathy October 15, 2024 8:52am Urticaria October 15, 2024 8:52am Bruising December 22, 2024 8:19am Enlarged prostate December 22, 2024 8:19am Screening PSA (prostate specific antigen ) December 22, 2024 8:19am Type II diabetes mellitus December 22, 2024 8:19am Chief Complaint Admit Date URI December 22, 2024 8:19am cough, chest congestion January 21, 2025 9 :26am Reason for Visit Admit Date Bronchitis December 22, 2024 8:19am Bruising December 22, 2024 8:19am Enlarged prostate December 22, 2024 8:19am Screening PSA (prostate specific antigen ) May 6th, 2025 8:19am Type II diabetes mellitus December 22, 2024 8:19am Chief Complaint Admit Date URI December 22, 2024 8:19am cough, chest congestion January 21, 2025 9 :26am wellness/cough February 16, 2025 2:44p m Reason for Visit Admit Date Bronchitis December 22, 2024 8:19am Bruising December 22, 2024 8:19am Enlarged prostate December 22, 2024 8:19am Screening PSA (prostate specific antigen ) December 22, 2024 8:19am Type II diabetes mellitus December 22, 2024 8:19am Bronchitis January 21, 2025 9:26a m Additional Source Comments REASON FOR VISIT (unrecogniz [...] call back reinier. 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 Reason Comments Neck Mass CT @ [facility] 02/26>[facility] Reason Comments postive cologuard LAST COLONOSCOPY [...] DATE CREATED AUTHOR AUTHOR'S ORGANIZ ATION 05/23/2024 [facility] DATE CREATED AUTHOR AUTHOR'S ORGANIZ ATION 05/29/2024 [facility] DATE CREATED AUTHOR AUTHOR'S ORGANIZ ATION 06/12/2024 [facility] DATE CREATED AUTHOR AUTHOR'S ORGANIZ ATION 11/06/2024 Sargent Gagan [facility] DATE CREATED AUTHOR AUTHOR'S ORGANIZ ATION 11/11/2024 Sargent Gagan [facility] DATE CREATED AUTHOR AUTHOR'S ORGANIZ ATION 11/29/2024 [facility] Patient Care team informatio n (unrecognized section and content) Team Status: Active Member Role Status Dates Jeremy Magallanes MD Primary Care Provider Active Team Status: Inactive Member Role Status Dates Jeremy Magallanes MD Primary Care Provide r, Attending Provider Active Start: December 22, 2024 End: December 22, 2024 Team Status: Active Member Role Status Dates Jeremy Magallanes MD Primary Care Provider Active Start: December 23, 2024 Arnoldo Somers MD Attending Provider Active St art: December 23, 2024 Team Status: Inactive Member Role Status Dates Jeremy Magallanes MD Primary Care Provide r, Attending Provider Active Start: January 21, 2025 End: January 21, 2025 Team Status: Active Member Role Status Dates [...] Team Status: Active Member Role Status Dates eJremy Magallanes MD Primary Care Provider Active Start: [...] Provider Active Start : October 23, 2023 [employer] Relationship Specialty Start Date End Date Jeremy Magallanes MD [address] [facility] [place] [phone] PCP - General Family Medicine 01/23/23 Team Status: Inactive Member Role Status Dates Jeremy Magallanes MD Attending Provider Active St art: September 13, 2023 End: September 13, 2023 Foundry Hand Relationship Specialty Start Date End Date Jeremy Magallanes MD [address] [facility] [phone] Referring Family Medicine 05/12/24 [employer] Relationship Specialty Start Date End Date Jeremy Magallanes MD [address] [facility] [place] [phone] PCP - General Family Medicine 01/23/23 [employer] Relationship Specialty Start Date End Date Jeremy Magallanes MD [address] [facility] [place] [phone] PCP - General Family Medicine 01/23/23 [employer]ry [employer] Relationship Specialty [place] [address] [place] [phone] PCP - General Family Medicine 01/23/23 [employer] Relationship Specialty Start Date End Date Jeremy Magallanes MD [address] [place] [phone] PCP - General Family Medicine 06/03/19 [employer] Relationship Specialty Start Date End Date Jeremy Magallanes MD [address] [place], [place] [phone] PCP - General Family Medicine 06/03/19 [employer] Relationship Specialty Start Date End Date Jeremy Magallanes MD [address] [place], [place] [phone] PCP - General Family Medicine 06/03/19 [employer] Relationship Specialty Start Date End Date Jeremy Magallanes MD [address] [place], [place] [phone] PCP - General Family Medicine 06/03/19 Team [...] October 15, 2024 End: October 15, 2024 Team Status: Inactive Member Role Status Dates Jeremy Magallanes MD Primary Care Provider Active Start: December 22, 2024 End: December 22, 2024 Jeremy Magallanes MD Attending Provider Active St art: December 22, 2024 End: December 22, 2024 Team Status: Inactive Member Role Status Dates Jeremy Magallanes MD Primary Care Provider Active Start: January 21, 2025 End: January 21, 2025 Jeremy Magallanes MD Attending Provider Active St art: January 21, 2025 End: January 21, 2025 Team Status: Inactive Member Role Status Dates Jeremy Magallanes MD Primary Care Provider Active Start: February 16, 2025 End: February 16, 2025 Jeremy Magallanes MD Attending Provider Active St art: February 16, 2025 End: February 16, 2025 Goals (unrecognized section and content) Goals may be documented in a n alternate section Source Comments (unrecognize d section and content) In the event this informatio n is protected by the Federal Confidentiality of Alcohol and Drug Abuse Patient Records regulations: The Federal rules restrict any use of the information to criminally investigate or prosecute any alcohol or drug abuse patient.[facility] FOR RECORDS PERTAINING TO PATIENTS [...] BE BASED ON THE PRIMARY CLINICAL RECORDS. [facility] [employer] [facility]. provides no warranty or guarantee of the accuracy or completeness of information in this document.
--- NOTE | 2025-03-03 08:26 | P.CN_ITS ---
Consult Note: HPI Data of Consult Patient: known to practice within the last 3 years Requesting Physician: Janneth Villalta NP Primary Care Provider: Hannah Gallo MD Consult Narrative Reason for consult: f/u Narrative: Nicholas Ziegler a pleasant 64 year old male presents for evaluation of chronic back pain, hx of previous laminectomy and multilevel spondylosis as well as stenosis at L4-5. pt has failed to benefit from >6 weeks of provider guided HEP, heat, ice, tylenol, and cannot take NSAIDs. recent dx of barretts esophagus and hiatal hernia. finds benefit to tylenol #3 and flexeril without side effects. denies falls or injury. pain today 4/10 aching stabbing increasing with standing walking, sitting in a hard chair, and sleep. pain increasing to 10/10 at times. no recent falls or injury. cc:: CC: Janneth Villalta NP Review of Systems ROS Status of ROS 10 or more systems reviewed and unremark able except as noted in history and below Musculoskeletal Reports: back pain PFSH PFSH Medical History Melanoma �C43.9 - Malignant melanoma of skin, unspecified (ICD-10) Tobacco user �Z72.0 - Tobacco use (ICD-10) Type 2 diabetes mellitus with hyperglycemia �E11.65 - Type 2 diabetes mellitus with hyperglycemia (ICD-10) Acute exacerbation of chronic obstructive pulmonary disease (COPD) �J44.1 - Chronic obstructive pulmonary disease with (acute) exacerbation (ICD-10) Lumbar degenerative disc disease �M51.36 - Other intervertebral disc degeneration, lumbar region (ICD-10) Influenza �J11.1 - Influenza due to unidentified influenza virus with other respiratory manifestations (ICD-10) Acute bronchospasm �J98.01 - Acute bronchospasm (ICD-10) Postoperative pain, acute, shoulder �G89.18 - Other acute postprocedural pain (ICD-10) �M25.519 - Pain in unspecified shoulder (ICD-10) Fever �R50.9 - Fever, unspecified (ICD-10) Acute pain of right shoulder �M25.511 - Pain in right shoulder (ICD-10) Rotator cuff arthropathy of right shoulder �M12.811 - Other specific arthropathies, not elsewhere classified, right shoulder (ICD-10) Diabetes �E11.9 - Type 2 diabetes mellitus without complications (ICD-10) COPD (chronic obstructive pulmonary disease) �J44.9 - Chronic obstructive pulmonary disease, unspecified (ICD-10) Surgical History H/O colonoscopy �Z98.890 - Other specified postprocedural states (ICD-10) History of carpal tunnel release �Z98.890 - Other specified postprocedural states (ICD-10) H/O lumbosacral spine surgery �Z98.890 - Other specified postprocedural states (ICD-10) S/P right rotator cuff repair �Z98.890 - Other specified postprocedural states (ICD-10) Family History Other Family history of COPD (chronic obstructive pulmonary disease) Family history of cancer Family history of hypertension Social History Within the past year, how often did you have a drink containing alcohol: never Score interpretation: A score less than 4 is consistent with normal alcohol consumption. Smoking status: Current every day smoker Non-prescribed substance use: denies use Previous occupational history: retired Highest level of school completed/degree received: GED or equivalent Are you now , , , , never or living with a partner: In a typical week, how many times do you talk on the telephone with family, friends, or neighbors: 3 or more times per week How often do you get together with friends or relatives: 3 or more times per w [place] How often do you attend restorationism or mandaen services: never Do you belong to any clubs or organizations such as restorationism groups unions, [employer] or athletic groups, or school groups: no Total score: 2 Score interpretation: A score of greater than or equal to 2 indicates the lowest level of social isolation. Little interest or pleasure in doing things: not at all Feeling down, depressed, or hopeless: not at all Feel stressed/tense/nervous/anxious/difficulty sleeping: not at all Do you think of yourself as: straight/heterosexual Gender Identity: male Meds Home Medications and Allergies Home Medications �Medication �Instructions �Recorded �Confirmed �Type glipizide 5 mg-metformin 500 mg 1 tab PO BID 08/23/23 12/22/24 History tablet lancets (Accu-Chek Fastclix Lancet 09/08/23 09/08/23 History Drum) albuterol sulfate 90 mcg/actuation 2 puff inhalation Q 6H PRN 06/01/24 11/23/24 History aerosol inhaler shortness of breath or wheez ing acetaminophen 300 mg-codeine 30 mg See Rx Instructions .Route 09/09/24 12/22/24 Rx tablet .COMPLEX PRN pain #180 tabs acetaminophen 300 mg-codeine 30 mg See Rx Instructions .Route 12/01/24 Rx tablet .COMPLEX PRN pain #180 tabs cefdinir 300 mg capsule 300 mg PO DAILY 12/22/2402/10 History Allergies Allergy/AdvReac Type Severity Reaction Status Date / Time fentanyl Allergy Intermediate Hives Verified 11/23/24 07:07 ofloxacin Allergy Intermediate HIVES Verified 11/23/24 07:07 olodaterol (From Stiolto Allergy Intermediate SHORTNESS Verified 11/23/24 07:07 Respimat) OF BREATH tiotropium (From Stiolto Allergy Intermediate SHORTNESS Verified 11/23/24 07:07 Respimat) OF BREATH zafirlukast Allergy Intermediate Hives Verified 11/23/24 07:07 Iodinated Contrast Media Allergy Unknown Unknown Verified 11/23/24 07:07 ibuprofen (From Motrin) AdvReac Mild Hives Verified 11/23/24 07:07 Exam Constitutional Documenting provider has reviewed patient's vital signs: yes Common normals: no apparent distress, oriented x3, healthy appearing, alert and well nourished General appearance: cooperative HENVA Common normals: normocephalic, hearing grossly normal bilaterally and moist oral mucous membranes Head and scalp: normocephalic Eye Common normals: PERRL Pupil: PERRL Neck & C-Spine Common normals: full ROM General: normal visual inspection Chest Common normals: inspection of chest normal Respiratory Common normals: normal respiratory effort, no retractions and no use of accessory muscles Back & Pelvis Thoracic spine/upper back: pain with ROM and thoracic spinal tenderness Lumbar spine/lower back: ROM limited, pain with ROM and straight leg raise negative bilaterally Sacroiliac joints: SI joints normal Other: sensation intact BLE strength 5/5 in BLE radiculopathy noted to right T10,11,12 positive axial facet loading Extremity Common normals: normal to inspection and full ROM Neuro Common normals: oriented x3 and gait normal Sensorium/orientation: alert Psych Common normals: mental status grossly normal, thought process normal, cooperative, affect normal, speech normal and activity/motor behavior normal Speech: normal speech Thought process: normal thought process Results Additional Findings Additional findings: If on a controlled substance or opioids, I have checked an [place] report on this patient and there are no aberrancies noted in the prescribing history.��If on a controlled substance or opioid a drug screen was completed and reviewed within the last year, and if there has not been a drug screen completed we ordered one today to monitor higher risk, state monitored pain medication use. As part of providing excellent, safe, comprehensive care, the following was completed at our patient's visit: 1. A medication reconciliation and review to ensure accurate knowledge of current/active medications, including asking our patients to inform us about any [id number] medications or herbal remedies/nutritional supplements/alternative remedies. 2. A review to specifically ensure our patients have had annual screening for screening for depression, screening for tobacco use, and screening for unhealthy alcohol use. For concerning screenings had a discussion with the patient, provided patient education, and recommended follow-up with primary care provider when appropriate. If patient noted with a risk of falling, they received education on strength, gait, and balance training to prevent future risk of f alling. Portions of this note may have been carried over from the previous visit and updated as appropriate. Please note this office utilizes paper charting in addition to the electronic medical record. A list of current medications, vitals, and PMH is available there as the clinical staff outside of myself do not have access to [employer] charting during the clinic day operations. As part of providing quality comprehensive care the current medications, vitals, and PMH were reviewed in the paper chart. Assessment and Plan Assessment and Plan (1) Thoracic radiculopathy: Assessment and Plan: The patient has had over 3 months of moderate to severe middle and low back pain with functional impairment and inadequate response to conservative care including NSAIDS (unless there are contraindication such as concurrent blood thinners), multiple oral or topical pain medications, and home exercise program/physical therapy.� Patient has completed >6 weeks of guided home exercise program and/or formal physical therapy program without relief of their symptoms.� The Oswestry Disability Index was completed, and the patient scored a 44%.� (2) Right flank pain, chronic: (3) Lumbar stenosis with neurogenic claudication: (4) Failed back syndrome: (5) Chronic prescription opiate use: (6) Sacroiliitis: Plan 64 year old male with chronic low back and right flank pain. previously has be nefitted from lumbar TFESIs. finds benefit to current medication regimen, notes significant improvement with tylenol #3 without side effects but does not drowsiness with flexeril 5mg prn. at this time will update thoracic MRI without contrast to evaluate thoracic radiculopathy and chronic right flank pain, may consider ESIs vs SCS trial. continue current medications. f/u to review imaging
== END 2025-03-03 07:47 | disposition home or self-care (01) ==
PROVIDERS: PCP Family Medicine; Visit Provider Nurse Practitioner
DX: M54.14 Radiculopathy, thoracic region (principal); R10.31 Right lower quadrant pain; M48.062 Spinal stenosis, lumbar region with neurogenic claudication; M96.1 Postlaminectomy syndrome, not elsewhere classified; Z79.891 Long term (current) use of opiate analgesic; M46.1 Sacroiliitis, not elsewhere classified
CPT/HCPCS: G0463

== ENCOUNTER 2025-03-08 06:44 | Outpatient (OUT) | payer MEDICARE, SELFPAY ==
--- NOTE | 2025-03-08 06:46 | MR_ITS ---
[facility] [place] [facility] [id number] Patient Name: ERIC CRAIG MRN: [id number] date: 1960 Sex: M Assigned Patient Location: MRI Current Patient Location: MRI Accession/Order Number: [id number] Exam Date: 03/08/2025 08:37 Report Date: 03/08/2025 08:42 At the request of: INNA SUMNER NP Procedure: MR thoracic spine wo con MRI thoracic spine performed without contrast INDICATION: Radiculopathy thoracic region COMPARISON: None FINDINGS: The thoracic vertebral body heights, alignment and bone marrow signal is unremarkable. The thoracic cord demonstrates normal signal and morphology. Mild hypertrophic changes and ligamentum flavum and facet degeneration notably T4-T5 and at T11-T12. This results in mild canal narrowing at T11-T12. Otherwise no significant disc disease, disc protrusion, central canal or neural foraminal narrowing identified elsewhere. Paraspinal soft tissues are unremarkable. MR/MR thoracic spine wo con IMPRESSION: Mild predominantly posterior elements degenerative changes notably at T11-T12. No high-grade canal or foraminal narrowing identified. Impression dictated by: Danish Wray M.D. 03/08/2025 8:42 AM Dictation Location: [place] [address] Electronically authenticated by: [id number] Y Date: 03/08/2025 08:42
--- OUTSIDE RECORDS SUMMARY | 2025-03-08 06:48 | XMS_ITS | CCD ---
Author Organization [facility] Care Team Providers Care Patient Safety Tech Name Role Phone Ronnie Kesha Unavailable Chepe Harriet Unavailable Jeremy Magallanes Unavailable SONA, DR JEREMY Jovel Admitting Unavailable MAGALLANES, DR JEREMY Jovel Attending Unavailable MAGALLANES, DR JEREMY Jovel Primary Care Unavailable MAGALLANES, DR JEREMY Jovel Consulting Unavailable TAVERASRUBI Consulting Unavailable OLEXA, KESHA Admitting Unavailable OLEXA, KESHA Attending Unavailable MAGALLANES, DR JEREMY Jovel Primary Care Unavailable [place], DR BARBIE Goldberg Consulting Unavailable OLEXA, KESHA [...] JIN Attending Unavailable Jeremy Magallanes MD Unavailable PRIYANKA [...] Reaction(s) Facility (20 sources) Ibuprofen Drug Allergy [facility] [place] Other (20 sources) olodaterol / tiotropium Drug Allergy shortness of breath [facility] [place] Other (20 sources) CT Scan dye Propensity to adverse reactions [employer] Other (13 sources) Ibuprofen; Translations: [IBUPROFEN] Drug Allergy 08-19-18 80 hives [facility] (2 sources) Iodine (And Iodine Containting Drugs) Drug allergy (disorder) 09-07-19 16 [facility] (1 source) NSAIDs Drug allergy (disorder) [facility] (20 sources) fentaNYL Drug Allergy 12-05-19 24 Unknown, [facility] (12 sources) Ibuprofen Drug Allergy 01-15-20 15 Rash, [facility] (20 sources) Ofloxacin Drug Allergy 12-05-19 24 Unknown, [facility] (3 sources) zafirlukast Drug Allergy 01-15-20 15 Unknown [employer] Other (20 sources) Zafirlukast *ANTIASTHMATIC AND BRONCHODILATOR AGEN Propensity to adverse reactions Unknown [employer] Other (20 sources) Ibuprofen & Diet Manage Prod *ANALGESICS - ANTI-IN Propensity to adverse reactions Unknown [employer] Other (3 sources) Allergies Reconciled Propensity to adverse reactions Unknown [employer] Other (20 sources) Iodinated contrast media (substance) Drug allergy 06-03-20 19 Rash, [facility] [employer] Other (3 sources) patient allergy list reviewed by nurse or physicia Propensity to adverse reactions 10-05-19 16 Comment:Done [employer] Other (14 sources) olodaterol Drug Allergy 12-05-19 24 shortness of breath [facility] (14 sources) tiotropium Drug Allergy 12-05-19 24 shortness of breath [facility] (11 sources) Iodinated Contrast Media; Translations: [IODINATED CONTRAST MEDIA] Allergy to substance 06-03-20 19 [facility] (10 sources) Ibuprofen & Diet Manage Prod * Allergy to substance 12-04-19 [facility] Comment on above: Free Text Allergy: I buprofen & Diet Manage Prod *ANALGESICS - ANTI-IN (10 sources) Zafirlukast *ANTIASTHMATIC AND Allergy to substance 12-04-19 [facility] Comment on above: Free Text Allergy: Z afirlukast *ANTIASTHMATIC AND BRONCHODILATOR AGEN (3 sources) DULoxetine Drug Allergy 04-07-20 24 GI intolerance [facility] (2 sources) cefdinir Drug Allergy 06-05-20 25 Vomiting [facility] Comment on above: nausea, vomiting Medications Current [...] Active Start: 04-24-2023 take 1 tablet by edsirae th every six hours as needed Acetaminophen-Codeine [...] Sep, Active take 2 tablets by mo [facility] every four hours as needed acetaminophen-codeine [...] as needed Orally every 6 hrs Active [id number] 200 actuat albuterol 0.09 mg/actuat metered dose [...] 07-19-2023 take 2 tablets by mo [facility] in the morning glipiZIDE-metFORMIN (Metaglip) [...] Start: 11-23-2022 take 2 tablets by mo [facility] every twenty-four hours predniSONE 20 MG [...] days May, Active Start: 2023 HYDROcodone-ac etaminophen ([place]) 10-325 MG tablet Start: 2023 take 1 [...] 30 mg oral tablet (5 sources) Uncompetitive A-qkbajh-B-aspartat e Receptor Antagonist, Sigma-1 Agonist Start: 05-26-2021 take 1 tablet by mouth every eight hours [place] DMT 30-30 MG 1 tablet Orally every [...] 8:39am Start: 02-20-2023 take 1 capsule by [facility] every twenty-four hours Cymbalta [...] 10-05-2015 Episodic Other aftercare (1 source) Other group home (current) drug therapy; Translations: [OTH CAN RECONDITIONER CURRENT DRUG THERAPY] Onset: 12-29-2021 Episodic Other [...] Lactate [Moles/Vol] 2.6 mmol/L Critically high 0.4-2.0 [facility] Comment on above: RESULTS CALLED TO GAURI SRINIVASAN RN at 0220 Basophils Auto (Bld) [#/Vol] on 12-22-2024 Basophils (Bld) [#/Vol] Automated basophil count 0.0-0.1 [facility] Basophils (Bld) [#/Vol] 0.0 10 3/uL 0.0-0.1 [facility] Basophils/100 WBC Auto (Bld) on 12-22-2024 Basophils/100 WBC (Bld) Automated basophil % 0.2-2.0 [facility] Basophils/100 WBC (Bld) 0.6 % 0.2-2.0 [facility] Basophils/100 WBC Manual cnt (Bld)on 12-22-2024 Basophils/100 WBC (Bld) Basophils/100 leukocytes in Blood by Manual count Low 0.2-2.0 [facility] Basophils/100 WBC (Bld) 0.0 % Low 0.2-2.0 [facility] Eosinophils/100 WBC Auto (Bl d)on 12-22-2024 Eosinophils/100 WBC (Bld) Automated eosinophil % 0.9-7.0 [facility] Eosinophils/100 WBC (Bld) 2.0 % 0.9-7.0 [facility] Eosinophils/100 WBC Manual c nt (Bld)on 12-22-2024 Eosinophils/100 WBC (Bld) Eosinophils/100 leukocytes in Blood by Manual count Low 0.9-7.0 [facility] Eosinophils/100 WBC (Bld) 0.0 % Low 0.9-7.0 [facility] Erythrocyte distribution wid th Auto (RBC) [Ratio]on 12-22-2024 Erythrocyte distribution width (RBC) [Ratio] 13.5 % 11.0-15.0 [facility] Estimated glomerular filtrat ion rate (GFR) non- Americanon 12-22-2024 GFR/1.73 sq M.predicted among non-blacks MDRD (S/P/Bld) [Vol rate/Area] Estimated glomerular filtration rate (GFR) non- Low >=60 mL/min/1.73m 2 [facility] GFR/1.73 sq M.predicted among non-blacks MDRD (S/P/Bld) [Vol rate/Area] 59 mL/min/{1.73_m2} Low >=60 mL/min/1.73m 2 [facility] Globulin Calc (S) [Mass/Vol] on 12-22-2024 Globulin (S) [Mass/Vol] Serum globulin measurement by calculation (mass/volume) [facility] Globulin (S) [Mass/Vol] 3.6 g/dL [facility] Glucose mean value [Mass/vol ume] in Blood Estimated from glycated hemoglobinon 12-22-2024 Average glucose Estimated from glycated hemoglobin (Bld) [Mass/Vol] Glucose mean value [Mass/volume] in Blood Estimated from glycated hemoglobin [facility] Average glucose Estimated from glycated hemoglobin (Bld) [Mass/Vol] 192 mg/dL [facility] Hematocrit Auto (Bld) [Volum e fraction]on 12-22-2024 Hematocrit (Bld) [Volume fraction] 56.3 % High 42.0-54.0 [facility] Hemoglobin A1c percentageon 12-22-2024 HbA1c (Bld) [Mass fraction] Hemoglobin A1c percentage High 4.5-6.2 [facility] Comment on above: ADA RECOMMENDED LIMI T 4.0 - 6.0ADA THERAPEUTIC TARGET < 7.0ACTION SUGGESTED> 7.0 HbA1c (Bld) [Mass fraction] 8.3 % High 4.5-6.2 [facility] Comment on above: ADA RECOMMENDED LIMI T 4.0 - 6.0ADA THERAPEUTIC TARGET < 7.0ACTION SUGGESTED> 7.0 Hemoglobin [Mass/volume] in Bloodon 12-22-2024 Hemoglobin (Bld) [Mass/Vol] 18.9 g/dL High 14.0-18.0 [facility] Laboratory - Chemistry and C hemistry - challengeon 12-22-2024 Albumin [Mass/Vol] 4.3 g/dL 3.4-5.0 [facility] ALP [Catalytic activity/Vol] 121 U/L High 46-116 [facility] ALT [Catalytic activity/Vol] 46 U/L 16-63 [facility] AST [Catalytic activity/Vol] 17 U/L 15-37 [facility] Bilirubin [Mass/Vol] 0.4 mg/dL 0.2-1.0 [facility] Calcium [Mass/Vol] 9.7 mg/dL 8.5-10.1 [facility] Chloride [Moles/Vol] 99 mmol/L 98-107 [facility] CO2 [Moles/Vol] 21.7 mmol/L 21.0-32.0 [facility] Creatinine [Mass/Vol] 1.24 mg/dL 0.70-1.30 [facility] GFR/1.73 sq M.predicted MDRD (S/P/Bld) [Vol rate/Area] mL/min/{1.73_m2} >=60 mL/min/1.73m 2 [facility] Glucose [Mass/Vol] 278 mg/dL High 74-106 [facility] Lactate [Moles/Vol] 2.3 mmol/L Critically high 0.4-2.0 [facility] Comment on above: RESULTS CALLED TO DIONE CABALLERO RN at 0009 Lipase [Catalytic activity/Vol] 31.0 U/L 16.0-77.0 [facility] Potassium [Moles/Vol] 4.6 mmol/L 3.5-5.1 [facility] Protein [Mass/Vol] 7.9 g/dL 6.4-8.2 [facility] Sodium [Moles/Vol] 133 mmol/L Low 136-145 [facility] Urea nitrogen [Mass/Vol] 15.0 mg/dL 7.0-18.0 [facility] Urea nitrogen/Creatinine [Mass ratio] 12.1 mg/mg [facility] TSH Qn 1.532 m[IU]/L 0.358-3.740 [facility] Laboratory - Hematology and Cell countson 12-22-2024 Lymphocytes/100 WBC (Bld) 1.0 % Low 20.5-60.0 [facility] Monocytes/100 WBC (Bld) 7.0 % 1.7-12.0 [facility] Immature granulocytes/100 WBC (Bld) 0.2 % 0.0-0.5 [facility] Leukocytes [#/volume] correc jean claude for nucleated erythrocytes in Blood by Automated counon 12-22-2024 WBC corrected for nucl RBC Auto (Bld) [#/Vol] 14.4 10 3/uL High 4.0-11.0 [facility] Lymphocytes Auto (Bld) [#/Vo l]on 12-22-2024 Lymphocytes (Bld) [#/Vol] Lymphocytes [#/volume] in Blood by Automated count 1.2-3.8 [facility] Lymphocytes (Bld) [#/Vol] 2.1 10 3/uL 1.2-3.8 [facility] Lymphocytes/100 WBC Auto (Bl d)on 12-22-2024 Lymphocytes/100 WBC (Bld) Lymphocytes/100 leukocytes in Blood by Automated count 20.5-60.0 [facility] Lymphocytes/100 WBC (Bld) 31.7 % 20.5-60.0 [facility] MCH Auto (RBC) [Entitic mass ]on 12-22-2024 MCH (RBC) [Entitic mass] 29.7 pg 25.9-34.0 [facility] MCHC Auto (RBC) [Mass/Vol]on 12-22-2024 MCHC (RBC) [Mass/Vol] 33.6 g/dL 29.9-35.2 [facility] MCV Auto (RBC) [Entitic vol] on 12-22-2024 MCV (RBC) [Entitic vol] 88.5 fL 80.0-94.0 [facility] Microalbumin [Mass/volume] i n Urineon 12-22-2024 Albumin DL <= 20 mg/L (U) [Mass/Vol] Microalbumin [Mass/volume] in Urine <=30.0 [facility] Albumin DL <= 20 mg/L (U) [Mass/Vol] 2.0 mg/dL <=30.0 [facility] Monocytes Auto (Bld) [#/Vol] on 12-22-2024 Monocytes (Bld) [#/Vol] Automated blood monocyte count 0.3-0.8 [facility] Monocytes (Bld) [#/Vol] 0.7 10 3/uL 0.3-0.8 [facility] Monocytes/100 WBC Auto (Bld) on 12-22-2024 Monocytes/100 WBC (Bld) Automated monocyte % 1.7-12.0 [facility] Monocytes/100 WBC (Bld) 10.7 % 1.7-12.0 [facility] Neutrophils Auto (Bld) [#/Vo l]on 12-22-2024 Neutrophils (Bld) [#/Vol] Neutrophils [#/volume] in Blood by Automated count 1.4-6.5 [facility] Neutrophils (Bld) [#/Vol] 3.6 10 3/uL 1.4-6.5 [facility] Neutrophils/100 WBC Auto (Bl d)on 12-22-2024 Neutrophils/100 WBC (Bld) Automated neutrophil % 43.0-75.0 [facility] Neutrophils/100 WBC (Bld) 54.8 % 43.0-75.0 [facility] No Panel Informationon 12-22 Absolute Basophils (Manual) 0.00 10 3/uL 0.00-0.10 [facility] Eosinophils # (Manual) 0.00 10 3/uL 0.00-0.70 [facility] Lymphocytes # (Manual) 0.14 10 3/uL Low 1.20-3.80 [facility] Monocytes # (Manual) 1.00 10 3/uL High 0.30-0.80 [facility] Segmented Neutrophils # (Manual) 13.24 10 3/uL High 1.4-6.5 [facility] Troponin I High Sensitivity <4.0 pg/mL Low 4.0-76.1 [facility] Comment on above: CUT-OFF POINTS HAVE BEEN [...] Eosinophils # (Auto) 0.1 10 3/uL 0.0-0.7 [facility] Immature Granulocyte # (Auto) 0.01 10 3/uL 0.00-0.03 [facility] Prostate Specific Antigen Screen 0.89 ng/mL <=4.00 [facility] Urine Random Creatinine 79.28 mg/dL 20.00-300.00 [facility] Platelet mean volume Auto (B ld) [Entitic vol]on 12-22-2024 Platelet mean volume (Bld) [Entitic vol] 9.4 fL Low 9.5-13.5 [facility] Platelets Auto (Bld) [#/Vol] on 12-22-2024 Platelets (Bld) [#/Vol] 319 10 3/uL 150-450 [facility] RBC Auto (Bld) [#/Vol]on RBC (Bld) [#/Vol] 6.36 10 6/uL High 4.70-6.10 [facility] Segmented neutrophils/100 WB C Manual cnt (Bld)on 12-22-2024 Segmented neutrophils/100 WBC (Bld) Manual blood segmented neutrophils/100 leukocytes High 43.0-75.0 [facility] Segmented neutrophils/100 WBC (Bld) 92.0 % High 43.0-75.0 [facility] Serum or plasma albumin/glob ulin mass ratioon 12-22-2024 Albumin/Globulin [Mass ratio] Serum or plasma albumin/globulin mass ratio [facility] Albumin/Globulin [Mass ratio] 1.2 {ratio} [facility] Serum or plasma anion gap de terminationon 12-22-2024 Anion gap [Moles/Vol] Serum or plasma anion gap determination [facility] Anion gap [Moles/Vol] 16.9 mmol/L [facility] Urine microalbumin/creatinin e mass ratioon 12-22-2024 Albumin/Creatinine DL <= 20 mg/L (U) [Mass ratio] Urine microalbumin/creatin ine mass ratio 0.0-29.9 [facility] Comment on above: NO MICROALBUMINURIA 0-29 MG/GCLINICAL MICROALBUMINURIA 30-300 MG/GMACROALBUMINURIA >300 MG/G Albumin/Creatinine DL <= 20 mg/L (U) [Mass ratio] 25.2 mg/g 0.0-29.9 [facility] Comment on above: NO MICROALBUMINURIA 0-29 MG/GCLINICAL MICROALBUMINURIA 30-300 MG/GMACROALBUMINURIA >300 MG/G CHEMISTRYOrdered By: Sonia Brandt on 11-04-2024 HbA1c (Bld) [Mass fraction] 9.5 % High <=5.9% [facility] ChemAutoSS [id number] 11-04-2024 HbA1c (Bld) [Mass fraction] 9.5 % High <=5.9 [facility] Comment on above: Performed By: #### [id number] #### [facility] [address] [place] [id number] Basophils Auto (Bld) [#/Vol] on 10-11-2024 Basophils (Bld) [#/Vol] Automated basophil count 0.0-0.1 [facility] Basophils/100 WBC Auto (Bld) on 10-11-2024 Basophils/100 WBC (Bld) Automated basophil % 0.2-2.0 [facility] Eosinophils/100 WBC Auto (Bl d)on 10-11-2024 Eosinophils/100 WBC (Bld) Automated eosinophil % 0.9-7.0 [facility] Erythrocyte distribution wid th Auto (RBC) [Ratio]on 10-11-2024 Erythrocyte distribution width (RBC) [Ratio] Erythrocyte distribution width [Ratio] by Automated count 11.0-15.0 [facility] Estimated glomerular filtrat ion rate (GFR) non- Americanon 10-11-2024 GFR/1.73 sq M.predicted among non-blacks MDRD (S/P/Bld) [Vol rate/Area] Estimated glomerular filtration rate (GFR) non- >=60 mL/min/1.73m 2 [facility] Globulin Calc (S) [Mass/Vol] on 10-11-2024 Globulin (S) [Mass/Vol] Serum globulin measurement by calculation (mass/volume) [facility] Hematocrit Auto (Bld) [Volum e fraction]on 10-11-2024 Hematocrit (Bld) [Volume fraction] Hematocrit [Volume Fraction] of Blood by Automated count 42.0-54.0 [facility] Hemoglobin [Mass/volume] in Bloodon 10-11-2024 Hemoglobin (Bld) [Mass/Vol] Hemoglobin [Mass/volume] in Blood 14.0-18.0 [facility] Laboratory - Chemistry and C hemistry - challengeon 10-11-2024 Albumin [Mass/Vol] 3.5 g/dL 3.4-5.0 [facility] ALP [Catalytic activity/Vol] 102 U/L 46-116 [facility] ALT [Catalytic activity/Vol] 39 U/L 16-63 [facility] AST [Catalytic activity/Vol] 13 U/L Low 15-37 [facility] Bilirubin [Mass/Vol] 0.2 mg/dL 0.2-1.0 [facility] Calcium [Mass/Vol] 9.1 mg/dL 8.5-10.1 [facility] Chloride [Moles/Vol] 102 mmol/L 98-107 [facility] CO2 [Moles/Vol] 28.4 mmol/L 21.0-32.0 [facility] Creatinine [Mass/Vol] 0.97 mg/dL 0.70-1.30 [facility] GFR/1.73 sq M.predicted MDRD (S/P/Bld) [Vol rate/Area] mL/min/{1.73_m2} >=60 mL/min/1.73m 2 [facility] Glucose [Mass/Vol] 317 mg/dL High 74-106 [facility] Potassium [Moles/Vol] 4.3 mmol/L 3.5-5.1 [facility] Protein [Mass/Vol] 6.7 g/dL 6.4-8.2 [facility] Sodium [Moles/Vol] 136 mmol/L 136-145 [facility] Urea nitrogen [Mass/Vol] 14.0 mg/dL 7.0-18.0 [facility] Urea nitrogen/Creatinine [Mass ratio] 14.4 mg/mg [facility] Laboratory - Hematology and Cell countson 10-11-2024 Immature granulocytes/100 WBC (Bld) 0.2 % 0.0-0.5 [facility] Leukocytes [#/volume] correc jean claude for nucleated erythrocytes in Blood by Automated counon 10-11-2024 WBC corrected for nucl RBC Auto (Bld) [#/Vol] Leukocytes [#/volume] corrected for nucleated erythrocytes in Blood by Automated coun 4.0-11.0 [facility] Lymphocytes Auto (Bld) [#/Vo l]on 10-11-2024 Lymphocytes (Bld) [#/Vol] Lymphocytes [#/volume] in Blood by Automated count 1.2-3.8 [facility] Lymphocytes/100 WBC Auto (Bl d)on 10-11-2024 Lymphocytes/100 WBC (Bld) Lymphocytes/100 leukocytes in Blood by Automated count 20.5-60.0 [facility] MCH Auto (RBC) [Entitic mass ]on 10-11-2024 MCH (RBC) [Entitic mass] MCH [Entitic mass] by Automated count 25.9-34.0 [facility] MCHC Auto (RBC) [Mass/Vol]on 10-11-2024 MCHC (RBC) [Mass/Vol] MCHC [Mass/volume] by Automated count 29.9-35.2 [facility] MCV Auto (RBC) [Entitic vol] on 10-11-2024 MCV (RBC) [Entitic vol] MCV [Entitic volume] by Automated count 80.0-94.0 [facility] Monocytes Auto (Bld) [#/Vol] on 10-11-2024 Monocytes (Bld) [#/Vol] Automated blood monocyte count 0.3-0.8 [facility] Monocytes/100 WBC Auto (Bld) on 10-11-2024 Monocytes/100 WBC (Bld) Automated monocyte % 1.7-12.0 [facility] Neutrophils Auto (Bld) [#/Vo l]on 10-11-2024 Neutrophils (Bld) [#/Vol] Neutrophils [#/volume] in Blood by Automated count 1.4-6.5 [facility] Neutrophils/100 WBC Auto (Bl d)on 10-11-2024 Neutrophils/100 WBC (Bld) Automated neutrophil % 43.0-75.0 [facility] No Panel Informationon 10-11 Eosinophils # (Auto) 0.2 10 3/uL 0.0-0.7 [facility] Immature Granulocyte # (Auto) 0.02 10 3/uL 0.00-0.03 [facility] Platelet mean volume Auto (B ld) [Entitic vol]on 10-11-2024 Platelet mean volume (Bld) [Entitic vol] Platelet mean volume [Entitic volume] in Blood by Automated count Low 9.5-13.5 [facility] Platelets Auto (Bld) [#/Vol] on 10-11-2024 Platelets (Bld) [#/Vol] Platelets [#/volume] in Blood by Automated count 150-450 [facility] RBC Auto (Bld) [#/Vol]on RBC (Bld) [#/Vol] Erythrocytes [#/volume] in Blood by Automated count 4.70-6.10 [facility] Serum or plasma albumin/glob ulin mass ratioon 10-11-2024 Albumin/Globulin [Mass ratio] Serum or plasma albumin/globulin mass ratio [facility] Serum or plasma anion gap de terminationon 10-11-2024 Anion gap [Moles/Vol] Serum or plasma anion gap determination [facility] Estimated glomerular filtrat ion rate (GFR) non- Americanon 08-26-2024 GFR/1.73 sq M.predicted among non-blacks MDRD (S/P/Bld) [Vol rate/Area] Estimated glomerular filtration rate (GFR) non- >=60 mL/min/1.73m 2 [facility] Laboratory - Chemistry and C hemistry - challengeon 08-26-2024 Creatinine [Mass/Vol] 1.02 mg/dL 0.70-1.30 [facility] GFR/1.73 sq M.predicted MDRD (S/P/Bld) [Vol rate/Area] mL/min/{1.73_m2} >=60 mL/min/1.73m 2 [facility] EGDon 06-03-2024 [facility] No Panel InformationOrdered By: Rosalia Shea on 06-03-2024 [facility] No Panel InformationOrdered By: Bill Henry on 06-03-2024 Miscellaneous Pathology Test See comment [facility] Comment on above: See report. Scanned copy available in EMR. No Panel Informationon 06-03 Helicobacter pylori Urease Test Negative [facility] Pathology Request for Lab Co rpon 06-03-2024 Pathology Request for Lab Raymond Normal [facility] Comment on above: Order Comment: PATHO LOGY GI SPECIMEN Result Comment: See report. Scanned copy available in EMR. PERFORMED BY: [place] [address] PATHOLOGIST RELIGIOUS RITUAL SLAUGHTERER JON PONCE M.D. Performed By: #### P ATH TO [facility] #### [address] 05-14-2024 [id number] NICHOLAS CRAIG ([id number]) 1960 M Date Time Provider Department 05/14/24 AMEYA MERAZ [id number] During your visit today, we recorded the following information about you: Keily Martines 05/14/2024 1:11 PM Signed Referral was sent from [facility] for new consult with Dr Meraz Please see below and advise Vivian Morley 05/15/2024 11:54 AM Addendum Consult from Dr. 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0-15.0 [facility] Estimated glomerular filtrat ion rate (GFR) non- Americanon 02-27-2024 GFR/1.73 sq M.predicted among non-blacks MDRD (S/P/Bld) [Vol rate/Area] mL/min/{1.73_m2} >=60 [facility] Hematocrit Auto (Bld) [Volum e fraction]on 02-27-2024 Hematocrit (Bld) [Volume fraction] 47.1 % 42.0-54.0 [facility] Hemoglobin [Mass/volume] in Bloodon 02-27-2024 Hemoglobin (Bld) [Mass/Vol] 15.5 g/dL 14.0-18.0 [facility] Laboratory - Chemistry and C hemistry - challengeon 02-27-2024 Calcium [Mass/Vol] 8.9 mg/dL 8.5-10.1 [facility] Chloride [Moles/Vol] 98 mmol/L 98-107 [facility] CO2 [Moles/Vol] 28.1 mmol/L 21.0-32.0 [facility] Creatinine [Mass/Vol] 0.86 mg/dL 0.70-1.30 [facility] GFR/1.73 sq M.predicted MDRD (S/P/Bld) [Vol rate/Area] mL/min/{1.73_m2} >=60 [facility] Glucose [Mass/Vol] 237 mg/dL High 74-106 [facility] Lactate [Moles/Vol] 1.3 mmol/L 0.4-2.0 [facility] Potassium [Moles/Vol] 4.4 mmol/L 3.5-5.1 [facility] Sodium [Moles/Vol] 130 mmol/L Low 136-145 [facility] [facility] [place] Urea nitrogen [Mass/Vol] 21.0 mg/dL High 7.0-18.0 [facility] Urea nitrogen/Creatinine [Mass ratio] 24.4 mg/mg [facility] Laboratory - Hematology and Cell countson 02-27-2024 Immature granulocytes/100 WBC (Bld) 0.3 % 0.0-0.5 [facility] Leukocytes [#/volume] correc jean claude for nucleated erythrocytes in Blood by Automated counon 02-27-2024 WBC corrected for nucl RBC Auto (Bld) [#/Vol] 9.3 10 3/uL 4.0-11.0 [facility] Lymphocytes Auto (Bld) [#/Vo l]on 02-27-2024 Lymphocytes (Bld) [#/Vol] 2.4 10 3/uL 1.2-3.8 [facility] Lymphocytes/100 WBC Auto (Bl d)on 02-27-2024 Lymphocytes/100 WBC (Bld) 25.5 % 20.5-60.0 [facility] MCH Auto (RBC) [Entitic mass ]on 02-27-2024 MCH (RBC) [Entitic mass] 29.1 pg 25.9-34.0 [facility] MCHC Auto (RBC) [Mass/Vol]on 02-27-2024 MCHC (RBC) [Mass/Vol] 32.9 g/dL 29.9-35.2 [facility] MCV Auto (RBC) [Entitic vol] on 02-27-2024 MCV (RBC) [Entitic vol] 88.5 fL 80.0-94.0 [facility] Monocytes Auto (Bld) [#/Vol] on 02-27-2024 Monocytes (Bld) [#/Vol] 1.1 10 3/uL High 0.3-0.8 [facility] Monocytes/100 WBC Auto (Bld) on 02-27-2024 Monocytes/100 WBC (Bld) 12.0 % 1.7-12.0 [facility] Neutrophils Auto (Bld) [#/Vo l]on 02-27-2024 Neutrophils (Bld) [#/Vol] 5.5 10 3/uL 1.4-6.5 [facility] Neutrophils/100 WBC Auto (Bl d)on 02-27-2024 Neutrophils/100 WBC (Bld) 59.2 % 43.0-75.0 [facility] No Panel Informationon 02-26 Eosinophils # (Auto) 0.2 10 3/uL 0.0-0.7 [facility] Immature Granulocyte # (Auto) 0.03 10 3/uL 0.00-0.03 [facility] Platelet mean volume Auto (B ld) [Entitic vol]on 02-27-2024 Platelet mean volume (Bld) [Entitic vol] 8.8 fL Low 9.5-13.5 [facility] Platelets Auto (Bld) [#/Vol] on 02-27-2024 Platelets (Bld) [#/Vol] 288 10 3/uL 150-450 [facility] RBC Auto (Bld) [#/Vol]on RBC (Bld) [#/Vol] 5.32 10 6/uL 4.70-6.10 [facility] Serum or plasma anion gap de terminationon 02-27-2024 Anion gap [Moles/Vol] 8.3 mmol/L [facility] Basophils Auto (Bld) [#/Vol] on 12-05-2023 Basophils (Bld) [#/Vol] 0.1 10 3/uL 0.0-0.1 [facility] Basophils/100 WBC Auto (Bld) on 12-05-2023 Basophils/100 WBC (Bld) 0.9 % 0.2-2.0 [facility] Eosinophils/100 WBC Auto (Bl d)on 12-05-2023 Eosinophils/100 WBC (Bld) 2.7 % 0.9-7.0 [facility] Erythrocyte distribution wid th Auto (RBC) [Ratio]on 12-05-2023 Erythrocyte distribution width (RBC) [Ratio] 13.1 % 11.0-15.0 [facility] Estimated glomerular filtrat ion rate (GFR) non- Americanon 12-05-2023 GFR/1.73 sq M.predicted among non-blacks MDRD (S/P/Bld) [Vol rate/Area] mL/min/{1.73_m2} >=60 [facility] Glucose mean value [Mass/vol ume] in Blood Estimated from glycated hemoglobinon 12-05-2023 Average glucose Estimated from glycated hemoglobin (Bld) [Mass/Vol] 171 mg/dL [facility] Hematocrit Auto (Bld) [Volum e fraction]on 12-05-2023 Hematocrit (Bld) [Volume fraction] 48.9 % 42.0-54.0 [facility] Hemoglobin [Mass/volume] in Bloodon 12-05-2023 Hemoglobin (Bld) [Mass/Vol] 16.0 g/dL 14.0-18.0 [facility] Laboratory - Chemistry and C hemistry - challengeon 12-05-2023 Calcium [Mass/Vol] 9.7 mg/dL 8.5-10.1 [facility] [place] Chloride [Moles/Vol] 102 mmol/L 98-107 [facility] CO2 [Moles/Vol] 27.6 mmol/L 21.0-32.0 [facility] Creatinine [Mass/Vol] 1.01 mg/dL 0.70-1.30 [facility] GFR/1.73 sq M.predicted MDRD (S/P/Bld) [Vol rate/Area] mL/min/{1.73_m2} >=60 [facility] Glucose [Mass/Vol] 156 mg/dL High 74-106 [facility] [place] Potassium [Moles/Vol] 4.4 mmol/L 3.5-5.1 [facility] Sodium [Moles/Vol] 139 mmol/L 136-145 [facility] [place] Urea nitrogen [Mass/Vol] 13.0 mg/dL 7.0-18.0 [facility] Urea nitrogen/Creatinine [Mass ratio] 12.9 mg/mg [facility] Laboratory - Hematology and Cell countson 12-05-2023 ESR (Bld) [Velocity] 17 mm/h <=20 [facility] HbA1c (Bld) [Mass fraction] 7.6 % High 4.5-6.2 [facility] Comment on above: ADA RECOMMENDED LIMI T 4.0 - 6.0ADA THERAPEUTIC TARGET < 7.0ACTION SUGGESTED> 7.0 Immature granulocytes/100 WBC (Bld) 0.4 % 0.0-0.5 [facility] Leukocytes [#/volume] correc jean claude for nucleated erythrocytes in Blood by Automated counon 12-05-2023 WBC corrected for nucl RBC Auto (Bld) [#/Vol] 7.7 10 3/uL 4.0-11.0 [facility] Lymphocytes Auto (Bld) [#/Vo l]on 12-05-2023 Lymphocytes (Bld) [#/Vol] 2.4 10 3/uL 1.2-3.8 [facility] Lymphocytes/100 WBC Auto (Bl d)on 12-05-2023 Lymphocytes/100 WBC (Bld) 31.2 % 20.5-60.0 [facility] MCH Auto (RBC) [Entitic mass ]on 12-05-2023 MCH (RBC) [Entitic mass] 28.5 pg 25.9-34.0 [facility] MCHC Auto (RBC) [Mass/Vol]on 12-05-2023 MCHC (RBC) [Mass/Vol] 32.7 g/dL 29.9-35.2 [facility] MCV Auto (RBC) [Entitic vol] on 12-05-2023 MCV (RBC) [Entitic vol] 87.0 fL 80.0-94.0 [facility] Monocytes Auto (Bld) [#/Vol] on 12-05-2023 Monocytes (Bld) [#/Vol] 0.7 10 3/uL 0.3-0.8 [facility] Monocytes/100 WBC Auto (Bld) on 12-05-2023 Monocytes/100 WBC (Bld) 9.5 % 1.7-12.0 [facility] Neutrophils Auto (Bld) [#/Vo l]on 12-05-2023 Neutrophils (Bld) [#/Vol] 4.2 10 3/uL 1.4-6.5 [facility] Neutrophils/100 WBC Auto (Bl d)on 12-05-2023 Neutrophils/100 WBC (Bld) 55.3 % 43.0-75.0 [facility] No Panel Informationon 12-04 Eosinophils # (Auto) 0.2 10 3/uL 0.0-0.7 [facility] Immature Granulocyte # (Auto) 0.03 10 3/uL 0.00-0.03 [facility] Platelet mean volume Auto (B ld) [Entitic vol]on 12-05-2023 Platelet mean volume (Bld) [Entitic vol] 8.6 fL Low 9.5-13.5 [facility] Platelets Auto (Bld) [#/Vol] on 12-05-2023 Platelets (Bld) [#/Vol] 330 10 3/uL 150-450 [facility] RBC Auto (Bld) [#/Vol]on RBC (Bld) [#/Vol] 5.62 10 6/uL 4.70-6.10 [facility] Serum or plasma anion gap de terminationon 12-05-2023 Anion gap [Moles/Vol] 13.8 mmol/L [facility] Magnesiumon 07-02-2023 Magnesium [Mass/Vol] 2.6270926 mg/dL Normal 1.8- 2.4 mg/dL [employer] Other Magnesium see note [employer] Other XR CHEST 2 Von 11-24-2022 XR [...] by: RUBI TAVERAS Date: 2022-11-24 17:17 Normal [facility] CT LUNG CANCER SCREENINGon 1 [...] YEISON NAVAS Date: 2022-07-20 07:18 Normal [facility] CBC AUTO DIFFon 06-07-2022 BASO # 0.1 103/ul Normal 0.0-0.1 [facility] Comment on above: Performed By: #### C BC #### [facility] [address] [place] [address] Dr. Eran Chacon Basophils/100 WBC (Bld) 0.6 % Normal 0.2-2.0 [facility] Comment on above: Performed By: #### C BC #### [facility] [address] [place] [address] Dr. Eran Chacon EO # 0.3 103/ul Normal 0.0-0.7 [facility] Comment on above: Performed By: #### C BC #### [facility] [address] [place] [address] Dr. Eran Chacon Eosinophils/100 WBC (Bld) 3.3 % Normal 0.9-7.0 [facility] Comment on above: Performed By: #### C BC #### [facility] [address] [place] [address] Dr. Eran Chacon Erythrocyte distribution width (RBC) [Ratio] 12.9 % Normal 11.0-15.0 [facility] Comment on above: Performed By: #### C BC #### [facility] [address] [place] [address] Dr. Eran Chacon Hematocrit (Bld) [Volume fraction] 47.7 % Normal 42.0-54.0 [facility] Comment on above: Performed By: #### C BC #### [facility] [address] [place] [address] Dr. Eran Chacon Hemoglobin (Bld) [Mass/Vol] 15.9 g/dL Normal 14.0-18.0 [facility] Comment on above: Performed By: #### C BC #### [facility] [address] [place] [address] Dr. Eran Chacon IG # 0.02 10e3/ul Normal 0.00-0.03 [facility] Comment on above: Performed By: #### C BC #### [facility] [address] [place] [address] Dr. Eran Chacon IG % 0.2 % Normal 0.0-0.5 [facility] Comment on above: Performed By: #### C BC #### [facility] [address] [place] [address] Dr. Eran Chacon LYMPH # 3.4 103/ul Normal 1.2-3.8 [facility] Comment on above: Performed By: #### C BC #### [facility] [address] [place] [address] Dr. Eran Chacon Lymphocytes/100 WBC (Bld) 34.5 % Normal 20.5-60.0 [facility] Comment on above: Performed By: #### C BC #### [facility] [address] [place] [address] Dr. Eran Chacon MANUAL DIFF REQ NO Normal [facility] Comment on above: Performed By: #### C BC #### [facility] [address] [place] [address] Dr. Eran Chacon MCH (RBC) [Entitic mass] 29.6 pg Normal 25.9-34.0 [facility] Comment on above: Performed By: #### C BC #### [facility] [address] [place] [address] Dr. Eran Chacon MCHC (RBC) [Mass/Vol] 33.3 g/dL Normal 29.9-35.2 [facility] Comment on above: Performed By: #### C BC #### [facility] [address] [place] [address] Dr. Eran Chacon MCV (RBC) [Entitic vol] 88.8 fL Normal 80.0-94.0 [facility] Comment on above: Performed By: #### C BC #### [facility] [address] [place] [address] Dr. Eran Chacon MONO # 0.9 103/ul Critically high 0.3-0.8 [facility] Comment on above: Performed By: #### C BC #### [facility] [address] [place] [address] Dr. Eran Chacon Monocytes/100 WBC (Bld) 9.3 % Normal 1.7-12.0 [facility] Comment on above: Performed By: #### C BC #### [facility] [address] [place] [address] Dr. Eran Chacon NEUT # 5.2 103/ul Normal 1.4-6.5 [facility] Comment on above: Performed By: #### C BC #### [facility] [address] [place] [address] Dr. Eran Chacon Neutrophils/100 WBC (Bld) 52.1 % Normal 43.0-75.0 [facility] Comment on above: Performed By: #### C BC #### [facility] [address] [place] [address] Dr. Eran Chacon Platelet mean volume (Bld) [Entitic vol] 8.8 fL Critically low 9.5-13.5 [facility] Comment on above: Performed By: #### C BC #### [facility] [address] [place] [address] Dr. Eran Chacon PLT 287 103/ul Normal 150-450 [facility] Comment on above: Performed By: #### C BC #### [facility] [address] [place] [address] Dr. Eran Chacon RBC 5.37 106/ul Normal 4.70-6.10 [facility] Comment on above: Performed By: #### C BC #### [facility] [address] [place] [address] Dr. Eran Chacon WBC 9.9 103/ul Normal 4.0-11.0 [facility] Comment on above: Performed By: #### C BC #### [facility] [address] [place] [address] Dr. Eran Chacon ER URINE PROFILEon 2 Bilirubin Ql (U) Negative Normal NEGATIVE [facility] Comment on above: Performed By: #### E RUR, UMICRO #### [facility] [address] [place] [address] Dr. Eran Chacon Clarity (U) CLEAR Normal CLEAR [facility] Comment on above: Performed By: #### Med SHER UMICRO #### [facility] [address] [address] [address] Eran Chacon Color (U) YELLOW Normal YELLOW [facility] Comment on above: Performed By: #### Med SHER UMICRO #### [facility] [address] [place] [address] Dr. Eran GATES A micrscopic examination will be performed if indicated. Normal [facility] Comment on above: Performed By: #### Med SHER UMICRO #### [facility] [address] [place] [address] Dr. Eran Chacon Glucose Ql (U) 500 mg/dl Abnormal NEGATIVE [facility] Comment on above: Performed By: #### Med SHER UMICRO #### [facility] [address] [place] [address] Dr. Eran Chacon Hemoglobin Ql (U) TRACE-INTACT Abnormal NEGATIVE [facility] Comment on above: Performed By: #### Med SHER UMICRO #### [facility] [address] [place] [address] Dr. Eran Chacon Ketones Ql (U) Negative Normal NEGATIVE [facility] Comment on above: Performed By: #### Med SHER UMICRO #### [facility] [address] [place] [address] Dr. Eran Chacon LEUKOCYTES Negative Normal NEGATIVE [facility] Comment on above: Performed By: #### Med SHER UMICRO #### [facility] [address] [place] [address] Dr. Eran Chacon Nitrite Ql (U) Negative Normal NEGATIVE [facility] Comment on above: Performed By: #### Med SHER UMICRO #### [facility] [address] [place] [address] Dr. Eran Chacon pH (U) 6.0 [pH] Normal 5-9 [facility] Comment on above: Performed By: #### Med SHER UMICRO #### [facility] [address] [place] [address] Dr. Eran Chacon SPEC GRAVITY 1.025 Normal 1.005-<=1.02 5 [facility] Comment on above: Performed By: #### HANNA BATES #### [facility] [address] [place] [address] Dr. Eran Chacon UA PROTEIN Negative Normal NEGATIVE/ TRACE [facility] Comment on above: Performed By: #### HANNA BATES #### [facility] [address] [place] [address] Dr. Eran Chacon UR MICRO IND INDICATED Normal [facility] Comment on above: Performed By: #### HANNA BATES #### [facility] [address] [place] [address] Dr. Eran Chacon Urobilinogen Qn (U) 0.2 {Aureliano'U}/dL Normal 0.2 - 1. 0 [facility] Comment on above: Performed By: #### HANNA BATES #### [facility] [address] [place] [address] Dr. Eran Chacon PROF 14(COMP METB)on 022 Albumin [Mass/Vol] 4.0 g/dL Normal 3.4-5.0 [facility] Comment on above: Performed By: #### C MP #### [facility] [address] [place] [address] Dr. Eran Chacon Albumin/Globulin [Mass ratio] 1.2 {ratio} Normal [facility] Comment on above: Performed By: #### C MP #### [facility] [address] [place] [address] Dr. Eran Chacon ALP [Catalytic activity/Vol] 104 U/L Normal 46-116 [facility] Comment on above: Performed By: #### C MP #### [facility] [address] [place] [address] Dr. Eran Chacon ALT [Catalytic activity/Vol] 28 U/L Normal 16-63 [facility] Comment on above: Performed By: #### C MP #### [facility] [address] [place], [place] [id number] Dr. Eran Chacon Anion gap [Moles/Vol] 7.2 mmol/L Normal [facility] Comment on above: Performed By: #### C MP #### [facility] [address] [address] [address] Eran Chacon AST [Catalytic activity/Vol] 14 U/L Critically low 15-37 [facility] Comment on above: Performed By: #### C MP #### [facility] [address] [address] [address] Eran Chacon Bilirubin [Mass/Vol] 0.4 mg/dL Normal 0.2-1.0 [facility] Comment on above: Performed By: #### C MP #### [facility] [address] [address] [address] Eran Chacon Calcium [Mass/Vol] 9.0 mg/dL Normal 8.5-10.1 [facility] Comment on above: Performed By: #### C MP #### [facility] [address] [place] [address] Dr. Eran Chacon Chloride [Moles/Vol] 103 mmol/L Normal 98-107 [facility] Comment on above: Performed By: #### C MP #### [facility] [address] [address] [address] Eran Chacon CO2 [Moles/Vol] 30.0 mmol/L Normal 21.0-32.0 [facility] Comment on above: Performed By: #### C MP #### [facility] [address] [address] [address] Eran Chacon Creatinine [Mass/Vol] 0.85 mg/dL Normal 0.70-1.30 [facility] Comment on above: Performed By: #### C MP #### [facility] [address] [place] [address] Dr. Eran Chacon EGFR-AF BELARUSIAN >60 Normal >=60 [facility] Comment on above: Performed By: #### C MP #### [facility] [address] [place] [address] Dr. Eran Chacon EGFR-NON AF BELARUSIAN >60 Normal >=60 [facility] Comment on above: Performed By: #### C MP #### [facility] [address] [address] [address] Eran Chacon Globulin (S) [Mass/Vol] 3.3 g/dL Normal [facility] Comment on above: Performed By: #### C MP #### [facility] [address] [address] [address] Eran Chacon Glucose [Mass/Vol] 165 mg/dL Critically high 74-106 [facility] Comment on above: Performed By: #### C MP #### [facility] [address] [address] [address] Eran Chcaon Potassium [Moles/Vol] 4.2 mmol/L Normal 3.5-5.1 [facility] Comment on above: Performed By: #### C MP #### [facility] [address] [address] [address] Eran Chacon Protein [Mass/Vol] 7.3 g/dL Normal 6.4-8.2 [facility] Comment on above: Performed By: #### C MP #### [facility] [address] [address] [address] Eran Chacon Sodium [Moles/Vol] 136 mmol/L Normal 136-145 [facility] Comment on above: Performed By: #### C MP #### [facility] [address] [address] [address] Eran Chacon Urea nitrogen [Mass/Vol] 10.0 mg/dL Normal 7.0-18.0 [facility] Comment on above: Performed By: #### C MP #### [facility] [address] [address] [address] Eran Chacon Urea nitrogen/Creatinine [Mass ratio] 11.8 mg/mg Normal [facility] Comment on above: Performed By: #### C MP #### [facility] [address] [address] [address] Eran Chacon URINE MICROSCOPIC ONLYon BACTERIA NONE SEEN Normal NONE SEEN [facility] Comment on above: Performed By: #### Med SHER UMICRO #### [facility] [address] [place] [address] Dr. Eran Chacon Bacteria identified Cx Nom (U) NOT INDICATED Normal [facility] Comment on above: Performed By: #### E NIKKY, UMICRO #### [facility] [address] [place] [address] Dr. Eran Chacon CAST NONE SEEN Normal NONE SEEN [facility] Comment on above: Performed By: #### E NIKKY UMICRO #### [facility] [address] [place] [address] Dr. Eran Chacon Crystals LM Nom (Urine sed) NONE SEEN Normal NONE SEEN [facility] Comment on above: Performed By: #### Med SHER UMICRO #### [facility] [address] [place] [address] Dr. Eran Chacon Epithelial cells LM Ql (Urine sed) RARE Normal NONE SEEN /RARE [facility] Comment on above: Performed By: #### Med SHER UMICRO #### [facility] [address] [place] [address] Dr. Eran Chacon MUCOUS NONE SEEN Normal NONE SEEN [facility] Comment on above: Performed By: #### Med SHER UMICRO #### [facility] [address] [place] [address] Dr. Eran Chacon RBC 0-2 Normal 0-2 [facility] Comment on above: Performed By: #### Med SHER UMICRO #### [facility] [address] [place] [address] Dr. Eran Chacon WBC 2-5 Abnormal NONE SEEN [facility] Comment on above: Performed By: #### Med SHER UMICRO #### [facility] [address] [place] [address] Dr. Eran Chacon MRI SHOULDER LT WO [...] by: YEISON NAVAS Date: 2022-02-02 17:09 Normal [facility] Vital Signs Date Time Vital Sign Value Performing Clinician Facility 02-16-2025 14:47-0400 Body height 175.26 cm Jeremy Magallanes MD Work Phone: [facility] 02-16-2025 14:47-0400 Body mass index (BMI) [Ratio] 34 kg/m2 Jeremy Magallanes MD Work Phone: [facility] 02-16-2025 14:47-0400 Body weight 104.32 kg Jeremy Magallanes MD Work Phone: [facility] 02-16-2025 14:47-0400 Diastolic blood pressure 74 mm[Hg] Jeremy Magallanes MD Work Phone: [facility] 02-16-2025 14:47-0400 Heart rate 81 /min Jeremy Magallanes MD Work Phone: [facility] 02-16-2025 14:47-0400 Respiratory rate 12 /min Jeremy Magallanes MD Work Phone: [facility] 02-16-2025 14:47-0400 SaO2% (BldA) [Mass fraction] 97 % Jeremy Magallanes MD Work Phone: [facility] 02-16-2025 14:47-0400 Systolic blood pressure 120 mm[Hg] Jeremy Magallanes MD Work Phone: [facility] 01-21-2025 09:27-0400 Body height 175.26 cm [facility] 01-21-2025 09:27-0400 Body mass index (BMI) [Ratio] 34.1 kg/m2 [facility] 01-21-2025 09:27-0400 Body temperature 98.5 [degF] [facility] 01-21-2025 09:27-0400 Body weight 104.77 kg [facility] 01-21-2025 09:27-0400 Diastolic blood pressure 82 mm[Hg] [facility] 01-21-2025 09:27-0400 Heart rate 72 /min [facility] 01-21-2025 09:27-0400 SaO2% (BldA) [Mass fraction] 97 % [facility] 01-21-2025 09:27-0400 Systolic blood pressure 144 mm[Hg] [facility] 12-22-2024 08:21-0400 Body height 175.26 cm [facility] 12-22-2024 08:21-0400 Body mass index (BMI) [Ratio] 33.6 kg/m2 [facility] 12-22-2024 08:21-0400 Body temperature 98.6 [degF] [facility] 12-22-2024 08:21-0400 Body weight 103.41 kg [facility] 12-22-2024 08:21-0400 Diastolic blood pressure 81 mm[Hg] [facility] 12-22-2024 08:21-0400 Heart rate 71 /min [facility] 12-22-2024 08:21-0400 SaO2% (BldA) [Mass fraction] 94 % [facility] 12-22-2024 08:21-0400 Systolic blood pressure 143 mm[Hg] [facility] 10-15-2024 08:56-0500 Body height 175.26 cm [facility] 10-15-2024 08:56-0500 Body mass index (BMI) [Ratio] 34.5 kg/m2 [facility] 10-15-2024 08:56-0500 Body temperature 98 [degF] [facility] 10-15-2024 08:56-0500 Body weight 106.14 kg [facility] 10-15-2024 08:56-0500 Diastolic blood pressure 81 mm[Hg] [facility] 10-15-2024 08:56-0500 Heart rate 76 /min [facility] 10-15-2024 08:56-0500 Systolic blood pressure 136 mm[Hg] [facility] 07-23-2024 10:21-0500 Body height 175.26 cm [facility] 07-23-2024 10:21-0500 Body mass index (BMI) [Ratio] 34.2 kg/m2 [facility] 07-23-2024 10:21-0500 Body weight 105.23 kg [facility] 07-23-2024 10:21-0500 Diastolic blood pressure 75 mm[Hg] [facility] 07-23-2024 10:21-0500 Heart rate 73 /min [facility] 07-23-2024 10:21-0500 SaO2% (BldA) [Mass fraction] 97 % [facility] 07-23-2024 10:21-0500 Systolic blood pressure 133 mm[Hg] [facility] 06-17-2024 09:13-0400 Body height 175.26 cm MD Jeremy Magallanes Work Phone: [facility] 06-17-2024 09:13-0400 Body mass index (BMI) [Ratio] 33.5 kg/m2 MD Jeremy Magallanes Work Phone: [facility] 06-17-2024 09:13-0400 Body temperature 98.1 [degF] MD Jeremy Magallanes Work Phone: [facility] 06-17-2024 09:13-0400 Body weight 102.96 kg MD Jeremy Magallanes Work Phone: [facility] 06-17-2024 09:13-0400 Diastolic blood pressure 83 mm[Hg] MD Jeremy Magallanes Work Phone: [facility] 06-17-2024 09:13-0400 Heart rate 79 /min MD Jeremy Magallanes Work Phone: [facility] 06-17-2024 09:13-0400 Systolic blood pressure 149 mm[Hg] MD Jeremy Magallanes Work Phone: [facility] 05-27-2024 14:56-0400 Body height 175.3 cm Lexyoll [employer] SUPERVISOR-ANIMAL RIDES MANAGER Work Phone: [facility] 05-27-2024 14:56-0400 Body mass index (BMI) [Ratio] 33.97 kg/m2 [email or web address] [employer] SUPERVISOR-ANIMAL RIDES MANAGER Work Phone: [facility] 05-27-2024 14:56-0400 Body weight 104.[address] [employer] SUPERVISOR-ANIMAL RIDES MANAGER Work Phone: [facility] 04-07-2024 10:04-0400 Body height 180.3 cm Malathi Sanchez MD Work Phone: [facility] 04-07-2024 10:04-0400 Body mass index (BMI) [Ratio] 32.78 kg/m2 Malathi Sanchez MD Work Phone: [facility] 04-07-2024 10:04-0400 Body weight 106.59 kg Malathi Sanchez MD Work Phone: [facility] 04-07-2024 10:04-0400 Diastolic blood pressure 88 mm[Hg] Malathi Sanchez MD Work Phone: [facility] 04-07-2024 10:04-0400 Systolic blood pressure 184 mm[Hg] Malathi Sanchez MD Work Phone: [facility] 03-18-2024 08:46-0400 Body height 175.26 cm [facility] 03-18-2024 08:46-0400 Body mass index (BMI) [Ratio] 34.4 kg/m2 [facility] 03-18-2024 08:46-0400 Body weight 105.68 kg [facility] 03-18-2024 08:46-0400 Diastolic blood pressure 80 mm[Hg] [facility] 03-18-2024 08:46-0400 Heart rate 72 /min [facility] 03-18-2024 08:46-0400 Systolic blood pressure 130 mm[Hg] [facility] 03-03-2024 11:54-0400 Body height 175.26 cm [facility] 03-03-2024 11:54-0400 Body mass index (BMI) [Ratio] 34.7 kg/m2 [facility] 03-03-2024 11:54-0400 Body weight 106.59 kg [facility] 03-03-2024 11:54-0400 Diastolic blood pressure 81 mm[Hg] [facility] 03-03-2024 11:54-0400 Heart rate 69 /min [facility] 03-03-2024 11:54-0400 Systolic blood pressure 129 mm[Hg] [facility] 12-17-2023 08:54-0400 Body height 175.26 cm [facility] 12-17-2023 08:54-0400 Body mass index (BMI) [Ratio] 35.2 kg/m2 [facility] 12-17-2023 08:54-0400 Body weight 108.4 kg [facility] 12-17-2023 08:54-0400 Diastolic blood pressure 76 mm[Hg] [facility] 12-17-2023 08:54-0400 Heart rate 76 /min [facility] 12-17-2023 08:54-0400 Systolic blood pressure 154 mm[Hg] [facility] 12-05-2023 08:52-0400 Body height 175.26 cm [facility] 12-05-2023 08:52-0400 Body mass index (BMI) [Ratio] 35 kg/m2 [facility] 12-05-2023 08:52-0400 Body weight 107.67 kg [facility] 12-05-2023 08:52-0400 Diastolic blood pressure 78 mm[Hg] [facility] 12-05-2023 08:52-0400 Heart rate 69 /min [facility] 12-05-2023 08:52-0400 Systolic blood pressure 147 mm[Hg] [facility] 09-13-2023 13:30-0500 Body height 175.26 cm Jeremy Magallanes Other [facility] 09-13-2023 13:30-0500 Body mass index (BMI) [Ratio] 33.22 kg/m2 Jeremy Magallanes Other [employer] [facility] [place] Other 09-13-2023 13:30-0500 Body temperature 98.4 [degF] Jeremy Magallanes Other [employer] [facility] Other 09-13-2023 13:30-0500 Body weight 102.06 kg Jeremy Magallanes Other [employer] [facility] Other 09-13-2023 13:30-0500 Body weight 102.05 kg [facility] 09-13-2023 13:30-0500 Diastolic blood pressure 80 mm[Hg] Jeremy Magallanes Other [facility] 09-13-2023 13:30-0500 SaO2% (BldA) [Mass fraction] 93 % Jeremy Magallanes Other [employer] [facility] Other 09-13-2023 13:30-0500 Systolic blood pressure 118 mm[Hg] Jeremy Magallanes Other [facility] 08-13-2023 10:30-0500 Body height 175.26 cm Jeremy Magallanes Other [employer] Other 08-13-2023 10:30-0500 Body mass index (BMI) [Ratio] 33.9 kg/m2 Jeremy Magallanes Other [employer] Other 08-13-2023 10:30-0500 Body weight 104.15 kg Jeremy Magallanes Other [employer] Other 08-13-2023 10:30-0500 Diastolic blood pressure 78 mm[Hg] Jeremy Magallanes Other [employer] Other 08-13-2023 10:30-0500 Systolic blood pressure 124 mm[Hg] Jeremy Magallanes Other [employer] Other 06-25-2023 08:45-0500 Body height 175.26 cm Jeremy Magallanes Other [employer] Other 06-25-2023 08:45-0500 Body mass index (BMI) [Ratio] 33.37 kg/m2 Jeremy Magallanes Other [employer] Other 06-25-2023 08:45-0500 Body temperature 96.5 [degF] Jeremy Magallanes Other [employer] Other 06-25-2023 08:45-0500 Body weight 102.51 kg Jeremy Magallanes Other [employer] Other 06-25-2023 08:45-0500 Diastolic blood pressure 85 mm[Hg] Jeremy Magallanes Other [employer] Other 06-25-2023 08:45-0500 Systolic blood pressure 149 mm[Hg] Jeremy Magallanes Other [employer] Other 05-28-2023 10:45-0400 Body height 175.26 cm Jeremy Magallanes Other [employer] Other 05-28-2023 10:45-0400 Body mass index (BMI) [Ratio] 33.52 kg/m2 Jeremy Magallanes Other [employer] Other 05-28-2023 10:45-0400 Body weight 102.97 kg Jeremy Magallanes Other [employer] Other 05-28-2023 10:45-0400 Diastolic blood pressure 82 mm[Hg] Jeremy Magallanes Other [employer] Other 05-28-2023 10:45-0400 Systolic blood pressure 147 mm[Hg] Jeremy Magallanes Other [employer] Other 2023 08:45-0400 Body height 175.26 cm Jeremy Magallanes Other [employer] Other 2023 08:45-0400 Body mass index (BMI) [Ratio] 33.52 kg/m2 Jeremy Magallanes Other [employer] Other 2023 08:45-0400 Body weight 102.97 kg Jeremy Magallanes Other [employer] Other 2023 08:45-0400 Diastolic blood pressure 85 mm[Hg] Jeremy Magallanes Other [employer] Other 2023 08:45-0400 Systolic blood pressure 156 mm[Hg] Jeremy Magallanes Other [employer] Other 04-30-2023 09:45-0400 Body height 175.26 cm Jeremy Magallanes Other [employer] Other 04-30-2023 09:45-0400 Body mass index (BMI) [Ratio] 34.32 kg/m2 Jeremy Magallanes Other [employer] Other 04-30-2023 09:45-0400 Body temperature 96.2 [degF] Jeremy Magallanes Other [employer] Other 04-30-2023 09:45-0400 Body weight 105.42 kg Jeremy Magallanes Other [employer] Other 04-30-2023 09:45-0400 Diastolic blood pressure 78 mm[Hg] Jeremy Magallanes Other [employer] Other 04-30-2023 09:45-0400 Respiratory rate 16 /min Jeremy Magallanes Other [employer] Other 04-30-2023 09:45-0400 Systolic blood pressure 146 mm[Hg] Jeremy Magallanes Other [employer] Other 02-20-2023 09:15-0400 Body height 175.26 cm Jeremy Magallanes Other [employer] Other 02-20-2023 09:15-0400 Body mass index (BMI) [Ratio] 33.46 kg/m2 Jeremy Magallanes Other [employer] Other 02-20-2023 09:15-0400 Body weight 102.79 kg Jeremy Magallanes Other [employer] Other 02-20-2023 09:15-0400 Diastolic blood pressure 77 mm[Hg] Jeremy Magallanes Other [employer] Other 02-20-2023 09:15-0400 Systolic blood pressure 131 mm[Hg] Jeremy Magallanes Other [employer] Other 01-17-2023 08:45-0400 Body height 175.26 cm Jeremy Magallanes Other [employer] Other 01-17-2023 08:45-0400 Body mass index (BMI) [Ratio] 33.37 kg/m2 Jeremy Magallanes Other [employer] Other 01-17-2023 08:45-0400 Body weight 102.51 kg Jeremy Magallanes Other [employer] Other 01-17-2023 08:45-0400 Diastolic blood pressure 79 mm[Hg] Jeremy Magallanes Other [employer] Other 01-17-2023 08:45-0400 Systolic blood pressure 128 mm[Hg] Jeremy Magallanes Other [employer] Other 11-23-2022 09:30-0400 Body height 175.26 cm Jeremy Magallanes Other [employer] Other 11-23-2022 09:30-0400 Body mass index (BMI) [Ratio] 33.96 kg/m2 Jeremy Magallanes Other [employer] Other 11-23-2022 09:30-0400 Body weight 104.33 kg Jeremy Magallanes Other [employer] Other 11-23-2022 09:30-0400 Diastolic blood pressure 72 mm[Hg] Jeremy Magallanes Other [employer] Other 11-23-2022 09:30-0400 Systolic blood pressure 122 mm[Hg] Jeremy Magallanes Other [employer] Other 09-04-2022 11:30-0500 Body height 175.26 cm Jeremy Magallanes Other [employer] Other 09-04-2022 11:30-0500 Body mass index (BMI) [Ratio] 33.52 kg/m2 Jeremy Magallanes Other [employer] Other 09-04-2022 11:30-0500 Body weight 102.97 kg Jeremy Magallanes Other [employer] Other 09-04-2022 11:30-0500 Diastolic blood pressure 80 mm[Hg] Jeremy Magallanes Other [employer] Other 09-04-2022 11:30-0500 SaO2% (BldA) [Mass fraction] 95 % Jeremy Magallanes Other [employer] Other 09-04-2022 11:30-0500 Systolic blood pressure 122 mm[Hg] Jeremy Magallanes Other [employer] Other 02-06-2022 12:45-0400 Body height 175.26 cm Kesha Olexa Other [employer] Other 02-06-2022 12:45-0400 Body mass index (BMI) [Ratio] 31.01 kg/m2 Kesha Olexa Other [employer] Other 02-06-2022 12:45-0400 Body weight 95.26 kg Kesha Olexa Other [employer] Other 05-26-2021 13:15-0400 Body height 175.26 cm Harriet Ginty Other [employer] Other 05-26-2021 13:15-0400 Body mass index (BMI) [Ratio] 31.01 kg/m2 Harriet Ginty Other [employer] Other 05-26-2021 13:15-0400 Body temperature 98.3 [degF] Harriet Ginty Other [employer] Other 05-26-2021 13:15-0400 Body weight 95.26 kg Harriet Ginty Other [employer] Other 05-26-2021 13:15-0400 SaO2% (BldA) [Mass fraction] 96 % Harriet Ginty Other [employer] Other Encounters Encounter Date Encounter Type Care Provider Facility Start: 02-16-2025 End: 02-16-2025 ambulatory Jeremy Magallanes MD Work Phone: [facility] Work Phone: Start: 02-16-2025 End: 02-16-2025 Patient encounter procedure Jeremy Magallanes MD -[facility] Work Phone: Start: 01-21-2025 End: 01-21-2025 ambulatory [facility] Work Phone: Start: 01-21-2025 End: 01-21-2025 Patient encounter procedure [facility] Work Phone: Start: 12-23-2024 Non-patient / Non-visit [facility] Work Phone: Start: 12-22-2024 End: 12-22-2024 ambulatory [facility] Work Phone: Start: 12-22-2024 End: 12-22-2024 Patient encounter procedure [facility] Work Phone: Start: 11-23-2024 End: 11-23-2024 ambulatory Zacarias Pike MD Facility:[facility] Start: 11-04-2024 End: 11-05-2024 ambulatory Ligia DIOP Facility[facility] Start: 11-04-2024 End: 11-05-2024 Patient encounter procedure Ligia DIOP [facility] Start: 11-04-2024 End: 11-05-2024 ambulatory Ligia DIOP Facility:[facility] Start: 10-15-2024 End: 10-15-2024 ambulatory [facility] Work Phone: Start: 10-15-2024 End: 10-15-2024 Patient encounter procedure [facility] Work Phone: Start: 10-12-2024 Non-patient / Non-visit [facility] Work Phone: Start: 10-11-2024 Non-patient / Non-visit [facility] Work Phone: Start: 08-26-2024 Non-patient / Non-visit [facility] Work Phone: Start: 08-17-2024 End: 08-17-2024 ambulatory Zacarias Pike MD Facility:[facility] Start: 07-23-2024 End: 07-23-2024 Patient encounter procedure [facility] Work Phone: Start: 07-21-2024 Non-patient / Non-visit [facility] Work Phone: Start: 07-20-2024 Non-patient / Non-visit [facility] Work Phone: Start: 06-17-2024 End: 06-17-2024 ambulatory MD Jeremy Magallanes Work Phone: [facility] Work Phone: Start: 06-17-2024 End: 06-17-2024 Patient encounter procedure MD Jeremy Magallanes Work Phone: [facility] Work Phone: Start: 06-12-2024 End: 06-12-2024 Orders Only Not In System Ref Prov [facility] Start: 06-10-2024 End: 06-10-2024 [facility] Comment on above: Dysphagia, unspecifi ed type; Black stools Start: 06-03-2024 End: 06-03-2024 ambulatory MD Jeremy Magallanes Work Phone: [facility] Work Phone: Start: 06-03-2024 End: 06-03-2024 Departed Referred MD Jeremy Magallanes Work Phone: [facility] Start: 06-03-2024 Non-patient / Non-visit MD Angelina Magallanes Work Phone: [facility] Work Phone: Start: 05-27-2024 End: 05-27-2024 Office outpatient new 30 minutes Priyanka Rosalinda Vaz [employer] SUPERVISOR-ANIMAL RIDES MANAGER Work Phone: [facility] Comment on above: Dysphagia, unspecifi ed type (Primary Dx); Black stools; Gastroesophageal reflux disease, unspecified whether esophagitis present; Abnormal esophagram Start: 05-27-2024 End: 05-27-2024 ambulatory PRIYANKA [facility]alinda [facility] Start: 05-18-2024 End: 05-18-2024 ambulatory Zacarias Pike MD Facility:[facility] Start: 05-14-2024 End: 05-21-2024 Telephone encounter Ameya [...] Facility: [facility] Start: 03-18-2024 End: 03-18-2024 ambulatory [facility] Work Phone: Start: 03-18-2024 End: 03-18-2024 Patient encounter procedure [facility] Work Phone: Start: 03-16-2024 End: 03-16-2024 ambulatory Zacarias Pike MD Facility: [facility] Start: 03-03-2024 End: 03-03-2024 ambulatory [facility] Work Phone: Start: 03-03-2024 End: 03-03-2024 Patient encounter procedure [facility] Work Phone: Start: 02-27-2024 Non-patient / Non-visit [facility] Work Phone: Start: 02-24-2024 End: 02-24-2024 ambulatory Zacarias Pike MD Facility:[facility] Start: 02-03-2024 End: 02-03-2024 ambulatory Zacarias Pike MD Facility:[facility] Start: 01-20-2024 End: 01-20-2024 ambulatory Zacarias Pike MD Facility:[facility] Start: 12-17-2023 End: 12-17-2023 ambulatory [facility] Work Phone: Start: 12-17-2023 End: 12-17-2023 Patient encounter procedure [facility] Work Phone: Start: 12-05-2023 End: 12-05-2023 ambulatory [facility] Work Phone: Start: 12-05-2023 End: 12-05-2023 Patient encounter procedure [facility] Work Phone: Start: 10-23-2023 Non-patient / Non-visit [facility] Work Phone: Start: 10-08-2023 Non-patient / Non-visit [facility] Work Phone: Start: 10-07-2023 End: 10-07-2023 ambulatory BARBIE TAPIA Not Available Start: 09-18-2023 End: 09-18-2023 ambulatory Jeremy Magallanes Other [employer] Other Start: 09-18-2023 Telephone encounter Jeremy Magallanes [facility] Start: 09-13-2023 End: 09-13-2023 ambulatory Jeremy Magallanes Other [employer] Other Start: 09-13-2023 Office outpatient vi sit 15 minutes Jeremy Magallanes [facility] Start: 09-13-2023 End: 09-13-2023 Patient encounter procedure [facility] Start: 09-11-2023 Telephone encounter [place] Joel [...] 09-10-2023 End: 09-10-2023 ambulatory Jeremy Magallanes Other [employer] Other Start: 09-10-2023 Telephone encounter Jeremy Magallanes [facility] Start: 09-06-2023 End: 09-06-2023 ambulatory Jeremy Magallanes Other [employer] Other Start: 09-06-2023 Telephone encounter Jeremy Magallanes [facility] Start: 09-02-2023 End: 09-02-2023 ambulatory JIN POCOS Not Available Start: 08-20-2023 End: 08-20-2023 ambulatory Jeremy Magallanes Other [employer] Other Start: 08-20-2023 Telephone encounter Jeremy Magallanes [facility] Start: 08-13-2023 End: 08-13-2023 ambulatory Jeremy Magallanes Other [employer] Other Start: 08-13-2023 Office outpatient vi sit 25 minutes Jeremy Magallanes [facility] Start: 08-13-2023 Telephone encounter Jeremy Magallanes [facility] Start: 08-06-2023 End: 08-06-2023 ambulatory Jeremy Magallanes Other [employer] Other Start: 08-06-2023 Telephone encounter Jeremy Magallanes [facility] Start: 07-29-2023 End: 07-29-2023 ambulatory BARBIE Tellez WILLIE Not Available Start: 07-22-2023 End: 07-22-2023 ambulatory Jeremy Magallanes Other [employer] Other Start: 07-22-2023 Telephone encounter Jeremy Magallanes [facility] Start: 07-19-2023 End: 07-19-2023 ambulatory Jeremy Magallanes Other [employer] Other Start: 07-19-2023 Telephone encounter Jeremy Magallanes [facility] Start: 07-18-2023 End: 07-18-2023 ambulatory Jeremy Magallanes Other [employer] Other Start: 07-18-2023 Telephone encounter Jeremy Magallanes [facility] Start: 07-02-2023 End: 07-02-2023 ambulatory Jeremy Magallanes Other [employer] Other Start: 07-02-2023 Office outpatient vi sit 15 minutes Jeremy Magallanes [facility] Start: 07-02-2023 Telephone encounter Jeremy Magallanes [facility] Start: 06-25-2023 End: 06-25-2023 ambulatory Jeremy Magallanes Other [employer] Other Start: 06-25-2023 Office outpatient vi sit 15 minutes Jeremy Magallanes [facility] Start: 06-21-2023 End: 06-21-2023 ambulatory Jeremy Magallanes Other [employer] Other Start: 06-21-2023 Encounter by edmond owen Jeremy Magallanes [facility] Start: 06-20-2023 End: 06-20-2023 ambulatory Jeremy Magallanes Other [employer] Other Start: 06-20-2023 Telephone encounter Jeremy Magallanes [facility] Start: 06-17-2023 End: 06-17-2023 ambulatory Jeremy Magallanes Other [employer] Other Start: 06-17-2023 Telephone encounter Jeremy Magallanes [facility] Start: 06-10-2023 End: 06-10-2023 ambulatory Jeremy Magallanes Other [employer] Other Start: 06-10-2023 Telephone encounter Jeremy Magallanes [facility] Start: 06-03-2023 End: 06-03-2023 ambulatory Jeremy Magallanes Other [employer] Other Start: 06-03-2023 Telephone encounter Jeremy Magallanes [facility] Start: 05-30-2023 End: 05-30-2023 Patient encounter procedure Barbie Tapia [facility] Start: 05-28-2023 End: 05-28-2023 ambulatory Jeremy Magallanes Other [employer] Other Start: 05-28-2023 Office outpatient vi sit 15 minutes Jeremy Magallanes [facility] Start: 2023 End: 2023 ambulatory Jeremy Magallanes Other [employer] Other Start: 2023 Office outpatient vi sit 15 minutes Jeremy Magallanes [facility] Start: 05-16-2023 End: 05-16-2023 ambulatory Jeremy Magallanes Other [employer] Other Start: 05-16-2023 Telephone encounter Jeremy Magallanes [facility] Start: 04-30-2023 End: 04-30-2023 ambulatory Jeremy Magallanes Other [employer] Other Start: 04-30-2023 Office outpatient vi sit 15 minutes Jeremy Magallanes [facility] Start: 04-26-2023 End: 04-26-2023 ambulatory Jeremy Magallanes Other [employer] Other Start: 04-26-2023 Telephone encounter Jeremy Magallanes [facility] Start: 04-23-2023 End: 04-23-2023 ambulatory Jeremy Magallanes Other [employer] Other Start: 04-23-2023 Telephone encounter Jeremy Magallanes [facility] Start: 03-25-2023 End: 03-25-2023 ambulatory Jeremy Magallanes Other [employer] Other Start: 03-25-2023 Telephone encounter Jeremy Magallanes [facility] Start: 03-06-2023 End: 03-06-2023 ambulatory Jeremy Magallanes Other [employer] Other Start: 03-06-2023 Telephone encounter Jeremy Magallanes [facility] Start: 02-20-2023 End: 02-20-2023 ambulatory Jeremy Magallanes Other [employer] Other Start: 02-20-2023 Office outpatient vi sit 25 minutes Jeremy Magallanes [facility] Start: 02-05-2023 End: 02-05-2023 ambulatory Jeremy Magallanes Other [employer] Other Start: 02-05-2023 Telephone encounter Jeremy Magallanes [facility] Start: 01-21-2023 End: 01-21-2023 ambulatory Jeremy Magallanes Other [employer] Other Start: 01-21-2023 Telephone encounter Jeremy Magallanes [facility] [employer] Start: 01-17-2023 End: 01-17-2023 ambulatory Jeremy Magallanes Other [employer] Other Start: 01-17-2023 Office outpatient vi sit 15 minutes Jeremy Magallanes [facility] Start: 12-24-2022 End: 12-24-2022 ambulatory Jeremy Magallanes Other [employer] Other Start: 12-24-2022 Telephone encounter Jeremy Magallanes [facility] Start: 12-03-2022 End: 12-03-2022 ambulatory Jeremy Magallanes Other [employer] Other Start: 12-03-2022 Telephone encounter Jeremy Magallanes [facility] Start: 11-27-2022 End: 11-27-2022 ambulatory Jeremy Magallanes Other [employer] Other Start: 11-27-2022 Telephone encounter Jeremy Magallanes [facility] Start: 11-26-2022 End: 11-26-2022 ambulatory Jeremy Magallanes Other [employer] Other Start: 11-26-2022 Telephone encounter Jeremy Magallanes [facility] Start: 11-24-2022 End: 11-25-[address] JEREMY MAGALLANES Facility: Start: 11-23-2022 End: 11-23-2022 ambulatory Jeremy Magallanes Other [employer] Other Start: 11-23-2022 Office outpatient vi sit 15 minutes Jeremy Magallanes [facility] Start: 11-05-2022 End: 11-05-2022 ambulatory Jeremy Magallanes Other [employer] Other Start: 11-05-2022 Telephone encounter Jeremy Magallanes [facility] Start: 10-03-2022 End: 10-03-2022 ambulatory Jeremy Magallanes Other [employer] Other Start: 10-03-2022 Telephone encounter Jeremy Magallanes [facility] Start: 09-04-2022 End: 09-04-2022 ambulatory Jeremy Magallanes Other [employer] Other Start: 09-04-2022 Office outpatient vi sit 25 minutes Jeremy Magallanes [facility] Start: 07-26-[address] JEREMY MAGALLANES Facil ity:[facility] Start: 07-19-2022 End: 07-20-[address] WILFREDO ENGLE Facility:[facility] Start: 06-07-2022 End: 06-07-[address] JEREMY MAGALLANES Facility:[facility] Start: 03-15-2022 ambulatory KESHA ESCOBEDO Facility:[facility] Start: 02-06-2022 End: 02-06-2022 ambulatory Kesha Olexa Other [employer] Other Start: 02-06-2022 Office outpatient vi sit 25 minutes Kesha Zacharyxa [facility] Start: 02-02-2022 End: 02-03-2022 ambulatory KESHA OLEDANE Facility:[facility] Start: 12-28-2021 End: 12-28-[address] JEREMY MAGALLANES Facility:[facility] Start: 12-12-2021 End: 12-13-2021 ambulatory KESHA OLEXA [employer] Other Start: 12-12-2021 Office outpatient ne w 30 minutes Kesha Olexa [facility] Start: 05-26-2021 Office outpatient vi sit 15 minutes Harriet Ginty [facility] Procedures Date Procedure Procedure Detail Performing Clinician Start: 06-03-2024 Esophagogastroduodenoscopy Priyanka vázquez [employer] SUPERVISOR-ANIMAL RIDES MANAGER Work Phone: Start: 06-03-2024 Level i surg [...] Td Vaccines (3 - Td or Tdap) [facility] Start: 05-27-2025 Adult BMI Screening Adult BMI Screening [facility] Start: 05-27-2025 Tobacco Screening Tobacco Screening [facility] Start: 10-15-2024 Patient referral [facility] Work Phone: Start: 04-19-2024 Influenza vaccination Influenza Vaccine [facility] Start: 04-07-2024 End: 04-07-2024 Patient encounter procedure 04/07/2024 10:30 AM EDT Office Visit [facility] [address] [facility] [address] [place] [id number] Malathi Sanchez MD [address] [place] [address] Arrived [facility] Comment on above: Arrived Start: 03-18-2024 Patient referral [facility] Work Phone: Start: 10-07-2023 End: 10-07-2023 Patient encounter procedure 10/07/2023 8:00 AM EST Office Visit [facility] [address] [place], [place] [address] Barbie Tapia DO [address] [place] [place] [address] [facility] Start: 2010 Administration of varicella zoster vaccine Zoster (Shingles) Vaccine (1 of 2) [facility] Start: 1978 Adult BMI Follow Up Plan Adult BMI Follow Up Plan [facility] Start: 1972 Depression Screening Depression Screening [facility] Start: 1960 Tobacco Counseling Tobacco Counseling [facility] Comprehensive metabo lic 2000 panel - Serum or Plasma [facility] CT Chest WO contrast [facility] CT Neck W contrast IV [facility] End: 05-27-2025 Esophagogastroduodenoscopy EGD GI Routine Dysphagia, unspecified type Black stools 1 Occurrences starting 05/27/2024 until 05/27/2025 [facility] Work Phone: Comment on above: 1 Occurrences starting 05/27/2024 until 05/27/2025 Patient referral [facility] Work Phone: XR Pelvis and Hip - bilateral Views [facility] Immunizations Immunization Date Immunization Notes Care Provider [facility] 06-02-2018 Influenza, injectabl e, Madin Osseo Canine Kidney, preservative free, quadrivalent Argentina Clinton PT Work Phone: [facility] 06-02-2018 influenza virus vaccine, unspecified formulation Priyanka العليoll WATERWORKS SUPERVISOR-ANIMAL RIDES MANAGER Work Phone: [facility] 05-17-2017 influenza virus vaccine, split virus (incl. purified surface antigen) Jeremy Magallanes Other [employer] Other 05-17-2017 influenza virus vaccine, unspecified formulation [facility] 05-16-2017 influenza, injectabl e, quadrivalent, preservative free Argentina Clinton PT Work Phone: [facility] 06-28-2016 influenza, injectabl e, quadrivalent, preservative free Argentina Clinton PT Work Phone: [facility] 06-28-2016 tetanus and diphther ia toxoids, adsorbed, preservative free, for adult use (5 Lf of tetanus toxoid and 2 Lf of diphtheria toxoid) Jeremy Magallanes Other [facility] 05-25-2015 influenza, seasonal, injectable, preservative free Argentina Clinton PT Work Phone: [facility] 05-25-2015 tetanus and diphther ia toxoids, adsorbed, preservative free, for adult use (5 Lf of tetanus toxoid and 2 Lf of diphtheria toxoid) Jeremy Magallanes Other [facility] 06-15-1999 pneumococcal conjuga te vaccine, 7 valent Argentina Clinton PT Work Phone: [facility] Payers Date Payer Category Payer Medicaid [id number] 2013 Medicare [id number] 1960 Unknown [id number] 2.16.84 0.1.901610.3.579.2.593 1960 Unknown [id number] 2.16.84 0.1.941625.3.579.2.593 1960 Unknown [id number] 2.16.84 0.1.190355.3.579.2.593 1960 Unknown [id number] 2.16.84 0.1.993631.3.579.2.593 1960 Unknown [id number] 2.16.84 0.1.330864.3.579.2.593 1960 Unknown [id number] 2.16.84 0.1.742736.3.579.2.593 1960 Unknown [id number] 2.16.84 0.1.212843.3.579.2.593 1960 Unknown [id number] 2.16.84 0.1.431820.3.579.2.593 1960 Unknown [id number] 2.16.84 0.1.766915.3.579.2.1259 1960 Unknown [id number] 2.16.84 0.1.910118.3.579.2.1259 1960 Unknown [id number] 2.16.84 0.1.394286.3.579.2.1259 1960 Unknown [id number] 2.16.84 0.1.859951.3.579.2.1259 1960 Unknown [id number] 2.16.840 .1.919615.3.579.2.1259 1960 Unknown [id number] 2.16.8 40.1.365793.3.579.2.1286 1960 Unknown [id number] 2.16.8 40.1.956292.3.579.2.727 1960 Unknown [id number] 2.16.8 40.1.795405.3.579.2.727 1960 Unknown [id number] 2.16. 840.1.746799.3.579.2.196 1960 Unknown [id number] 2.16. 840.1.320371.3.579.2.196 1960 Unknown [id number] 2.16. 840.1.476719.3.579.2.196 1960 Unknown [id number] 2.16. 840.1.534001.3.579.2.196 1960 Unknown [id number] 2.16. 840.1.140409.3.579.2.196 1960 Unknown [id number] 2.16. 840.1.788340.3.579.2.196 1960 Unknown [id number] 2.16. 840.1.317188.3.579.2.196 1960 Unknown [id number] 2.16. 840.1.794118.3.579.2.196 1959 Medicaid [id number] 2. 16.840.1.495354.19 1959 Medicare [id number] 2.1 6.840.1.798559.19 Self-pay [id number] Social History Date Type Detail Facility Start: 09-29-2020 End: 09-02-2023 Sex Assigned At [facility] Tobacco smoking status [facility] Start: 06-03-2019 End: 03-27-2023 Tobacco smoking status HIIS Smokes tobacco daily [facility] Work Phone: History of tobacco use Cigarette Smoker N [facility] Start: 09-29-2020 End: 03-27-2023 Cigarettes smoked current (pack per day) - Reported 0.5 [facility] Start: 06-03-2019 End: 03-27-2023 Tobacco use and exposure Smokeless tobacco non-user [facility] Start: 09-02-2023 End: 05-27-2024 Alcohol intake Lifetime non-drinker (finding) [facility] Start: 03-27-2023 Alcohol Comment Caffine- Soda [facility] Start: 1960 Sex Assigned At Male [facility] Start: 08-21-2023 Gender identity Identifies as male gender (finding) [facility] Start: 08-21-2023 Sexual orientation Heterosexual (finding) [facility] Start: 02-06-2017 End: 02-16-2025 Tobacco smoking status [facility] Ex-smoker (finding) [facility] Tobacco smoking stat [facility] Tobacco smoking consumption unknown [facility] Start: 1960 Sex assigned at Not on file [facility] Frequency of Alcohol Consumption Never [facility] Start: 06-01-2019 End: 01-21-2025 Sex Male (finding) [facility] Medical Equipment Procedure Code Equipment Code Equipment Origin al Text Equipment Identifier Dates Accu-Chek FastCl ix Lancet - Blood Sugar Diagnostic (Accu-Chek Ya Plus Test Strp) strip Start: 11-06-2024 Lancets (Accu-Ch ek Fastclix Lancet Drum) [facility] Start: 10-28-2024 Blood Sugar Diagnostic (Accu-Chek Ya Plus Test Strp) strip Start: 11-04-2024 End: 11-05-2024 Blood Sugar Diagnostic (Accu-Chek Ya Plus Test Strp) strip Start: 11-05-2024 End: 11-05-2024 Blood Sugar Diagnostic (Accu-Chek Ya Plus Test Strp) strip Start: 11-05-2024 End: 11-06-2024 Lancets (Accu-Ch ek Fastclix Lancet Drum) [facility] Start: 10-26-2024 End: 10-27-2024 Lancets (Accu-Ch ek [...] 11-05-2024 End: 11-05-2024 Blood Sugar Diagnostic (Accu-Chek Ay Plus Test Strp) strip Start: 11-05-2024 End: [...] mellitus acute December 22, 2024 8: 19am [facility] Work Phone: 1(375) 863-582305-06-2025 Evaluation note* Diagnosis Onset Date Resolution Status Admit Date Bronchitis acute December 22, 2024 8:19am Bruising acute December 22, 2024 8:19am Enlarged prostate acute December 8:19am Screening PSA (prostate spec ific antigen) acute December 22, 2024 8: 19am Type II diabetes mellitus acute December 22, 2024 8:19am Bronchitis acute January 21, 2025 9:26am [facility] Work Phone: 1(994) 946-261803-19-2025 NoteProgress Note-Nurse LVM to talk about A1C level, he will be getting a one year card but will have to talk with his PCP about getting that number down.[facility] 10-15-2024 Evaluation note* Diagnosis Onset Date [...] diabetes mellitus acute December 22, 2024 8:19am [facility] Work Phone: 1(608) 905-761012-05-2024 Evaluation note* Diagnosis Onset Date Resolution Status Admit Date GERD (gastroesophageal reflu x disease) acute July 23 10:18am Lymphadenopathy acute July 23, 2024 10:18am Mass of left submandibular region acute July 23 10:18am Bladder diverticulum acute 2024 8:52am Enlarged prostate acute 2024 8:52am Lymphadenopathy acute October 15, 2024 8:52am [facility] Work Phone: [phone] 141-907110-25-2024 Miscellaneous Notes* Telephone Encounter - Evelyn Mendoza [...] Address verified with patient. [facility] [id number] Telephone encounter Note* Telephone Encounter - Evelyn [...] risk of esophageal cancer. Thanks, Dr. Kc [facility]10-25-2024 Telephone encounter Note* Telephone Encounter - Evelyn Mendoza CMA - 06/12/2024 12:00 PM EDT Spoke with patient regarding pathology results. Patient verbally understood with no further questions. 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 Address verified with patient. [facility]10-09-2024 History of Present illness Narrative* Priyanka Vaz, WATERWORKS SUPERVISOR-ANIMAL RIDES MANAGER - 05/27/2024 2:30 PM EDT Images from [...] gallbladder polyp. He saw Dr. Martinez in [place] for this. He also reports a positive [...] confusion. Past Medical History: Diagnosis Date Cancer ([facility]) Chronic back pain COPD [place]chronic obstructive pulmonary disease[place] Dental disease full dentures Diabetes [place] Shortness of breath Skin cancer MELANOMA & [...] patient/family/caregiver Referring and communicating with other health gericare aide Dysphagia, unspecified type [R13.10] CHARLEE BIGGS [facility] General [facility] [place] This note was created with the assistance of a speech recognition program. While intending to generate a timely document that accurately reflects the content of the visit, no guarantee can be provided that every grammatical or spelling mistake has been or will be identified or corrected. Thank you for your understanding. CHARLEE Biggs 05/27/24 1555 documented in this [facility] Telephone encounter Note* Telephone Encounter - Vivian Morley - 05/15/2024 11:35 AM EDT Images from the original note were not included. Consult from Dr. Jeremy Magallanes (Internal Medicine) [facility] Referral received from [...] 04/08/2024 Barium Swallow 03/21/2024 CT Chest [facility]09-27-2024 Miscellaneous Notes* Telephone Encounter - Vivian Morley - 05/15/2024 11:35 AM EDT Images from the original note were not included. Consult from Dr. Jeremy Magallanes (Internal Medicine) [facility] Referral received from [...] were not included. Referral was sent from [facility] for new consult with Dr Meraz Please see below and advise [facility] Telephone encounter Note * Telephone Encounter - Keily Martines - 05/14/2024 1:07 PM EDT Images from the original note were not included. Referral was sent from [facility] for new consult with Dr Meraz Please see below and advise [facility]09-16-2024 Telephone encounter Note* Telephone Encounter - Cynthia Sanchez - 05/04/2024 9:45 AM EDT Left message on sister's voice mail to contact Dr Magallanes's office for referral. [id number] Miscellaneous Notes* Telephone Encounter - Cynthia Sanchez [...] referral sent to Dr Ameya Meraz at [facility]. He is a gastrologist. The fax number is [phone] . Pt's sister would like a call back at [phone]. documented in this encounterLake [facility] Health [id number] Telephone encounter Note* Telephone Encounter - Malathi Sanchez MD - 05/04/2024 9:27 AM EDT That needs to be done by Dr Magallanes's office [facility] [id number] Telephone encounter Note* Telephone Encounter - Cynthia Sanchez - 05/04/2024 9:15 AM EDT Pt's sister called in. She said her brother would like a referral sent to Dr Ameya Meraz at [facility]. He is a gastrologist. The fax number is [phone] . Pt's sister would like a call back at [phone]. [facility] [id number] History of Present illness Narrative* Malathi Sanchez MD - 04/07/2024 10:30 AM EDT Subjective Patient ID: Alex Craig is a 63 y.o. male who presents for Neck Mass (CT @ [facility] [employer] 02/26>[facility]) Pt reports he is getting food [...] resolved. F/U if recurs documented in this [facility]02-14-2024 Telephone encounter Note* Telephone Encounter - Maris Tavera - 10/02/2023 1:35 PM EST No attempts to hear back; closing referral. [facility] [id number] Miscellaneous Notes* Telephone Encounter - Maris Tavera - 10/02/2023 1:35 PM EST No attempts to hear back; closing referral. documented in this [facility]01-26-2024 Evaluation note* Encounter Date Diagnosis Assessment Notes Treatment Notes Treatment Clinical Notes Aug, Chronic obstructive pulmonary disease, unspecified (ICD-10 - J44.9) Finish antibiotics and prednisone as prescribed. Denies pulmonary referral at this time. Hasn't smoked since 09/08 and declines chantix or patches. Aug, Current smoker (ICD-10 - F17.200) [facility] Other 01-23-2024 Evaluation note* Encounter Date Diagnosis Assessment Notes Treatment Notes Treatment Clinical Notes Aug, Lumbar radicular pain (ICD-10 - M54.16) [facility] Other 01-19-2024 Evaluation note* Encounter Date Diagnosis Assessment Notes Treatment Notes Treatment Clinical Notes Aug, Lumbar radicular pain (ICD-10 - M54.16) [facility] Other 12-26-2023 Evaluation note* Encounter Date Diagnosis Assessment Notes Treatment Notes Treatment Clinical Notes Jul, Type 2 diabetes mellitus with hyperglycemia, without long-term current use of insulin (ICD-10 - E11.65) [facility] Other 12-26-2023 Evaluation note* Encounter Date Diagnosis [...] T3s after shoulder pain has improved post-operatively. [facility] Other 12-04-2023 Evaluation note* Encounter Date Diagnosis Assessment Notes Treatment Notes Treatment Clinical Notes Jul, Type 2 diabetes mellitus with hyperglycemia, without long-term current use of insulin (ICD-10 - E11.65) [facility] Other 12-01-2023 Evaluation note* Encounter Date Diagnosis Assessment Notes Treatment Notes Treatment Clinical Notes Jul, Type 2 diabetes mellitus with hyperglycemia, without long-term current use of insulin (ICD-10 - E11.65) [facility] Other 11-30-2023 Evaluation note* Encounter Date Diagnosis Assessment Notes Treatment Notes Treatment Clinical Notes Jun, Labral tear of shoulder, right, subsequent encounter (ICD-10 - S43.431D) [employer] Other 11-14-2023 Evaluation note* Encounter Date Diagnosis [...] pain (ICD-10 - R07.9) r/o cardiac cause [facility] Other 11-07-2023 Evaluation note* Encounter Date Diagnosis [...] to decrease dose and possibly discontinue medication. [facility] Other 11-02-2023 Evaluation note* Encounter Date Diagnosis Assessment Notes Treatment Notes Treatment Clinical Notes Jun, Acute pain of right shoulder (ICD-10 - M25.511) [facility] Other 10-30-2023 Evaluation note* Encounter Date Diagnosis Assessment Notes Treatment Notes Treatment Clinical Notes May, Acute pain of right shoulder (ICD-10 - M25.511) [facility] Other 10-23-2023 Evaluation note* Encounter Date Diagnosis Assessment Notes Treatment Notes Treatment Clinical Notes May, Acute pain of right shoulder (ICD-10 - M25.511) [facility] Other 10-16-2023 Evaluation note* Encounter Date Diagnosis Assessment Notes Treatment Notes Treatment Clinical Notes May, Acute pain of right shoulder (ICD-10 - M25.511) [facility] Other 10-10-2023 Evaluation note* Encounter Date Diagnosis Assessment Notes Treatment Notes Treatment Clinical Notes May, Acute pain of right shoulder (ICD-10 - M25.511) MRI and surgery planning pending. Pt understands this is a controlled substance and to call in 1 week w update on treatment plan. May, Bronchitis (ICD-10 - J40) Finish antibiotic, rest, hydrate Steroids for wheezing. [facility] Other 10-04-2023 Evaluation note* Encounter Date Diagnosis Assessment Notes Treatment Notes Treatment Clinical Notes May, Acute pain of right shoulder (ICD-10 - M25.511) Reviewed OARRS and discussed short term plan of increase in pain medication. He is due for a refill of the T3s presently. Stop them, replace w norco. Pt understands weekly prescription and will need to d/c after anticipated surgery. [facility] Other 09-12-2023 Evaluation note* Encounter Date Diagnosis [...] office and the ER visit on 04/26 [facility] Other 07-05-2023 Evaluation note* Encounter Date Diagnosis [...] and will need less prn pain med. [facility] Other 06-01-2023 Evaluation note* Encounter Date Diagnosis [...] left shoulder (ICD-10 - M25.512) as above. [facility] Other 04-17-2023 Evaluation note* Encounter Date Diagnosis Assessment Notes Treatment Notes Treatment Clinical Notes Nov, Bronchitis (ICD-10 - J40) [facility] Other 04-11-2023 Evaluation note* Encounter Date Diagnosis Assessment Notes Treatment Notes Treatment Clinical Notes Nov, Disc degeneration, lumbar (ICD-10 - M51.36) Nov, Lumbar radicular pain (ICD-10 - M54.16) [facility] Other 04-07-2023 Evaluation note* Encounter Date Diagnosis [...] quit smoking. Pt verbalizes understanding and agreement. [facility] Other 02-15-2023 Evaluation note* Encounter Date Diagnosis Assessment Notes Treatment Notes Treatment Clinical Notes Sep, Lumbar radicular pain (ICD-10 - M54.16) [facility] Other 01-17-2023 Evaluation note* Encounter Date Diagnosis [...] is outlined on the test result page. [facility] Other 10-20-2022 NoteIndication: Calculus in kidney. 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 [employer] Other 04-26-2022 NotePROCEDURE: XR SHOULDER LT 2V or > COMPARISON: None. HISTORY: Pain of left shoulder joint FINDINGS: BONES:No acute fracture or dislocation. 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 No visible soft tissue swelling. EFFUSION:None visible. OTHER: Negative. IMPRESSION: Mild osteoarthritis Electronically authenticated by: BARBIE MEMBRENO Date: 2021-12-12 15:25[id number] Evaluation note* Encounter Date Diagnosis Assessment Notes [...] pain of left shoulder (ICD-10 - M25.512) [employer] Other 10-08-2021 Evaluation note* Encounter Date Diagnosis [...] as needed for cough. Advised patient that [place] contains antihistamine and cough suppressant and to be cautious using other OTC cold medications. Patient to follow up with PCP if symptoms do not improve. Immediate eval if SOB, difficulty breathing, chest pain, dizziness, or other concerning symptoms. Patient verbalizes understanding and is agreeable to treatment plan [facility] Other Evaluation + Plan note No data available for this section [facility] HospitalEvaluation noteNo InformationNortJefferson Hospital [facility] Other Evaluation note* Diagnosis Onset Date Resolution Status Arthralgia acute Lumbar pain acute Type II diabetes mellitus ac [facility] Work Phone: Evaluation note* Diagnosis Onset Date Resolution Status Arthralgia acute Lumbar pain acute Type II diabetes mellitus ac [place] Bilateral hip pain acute [facility] Work Phone: Evaluation note* Diagnosis Onset Date Resolution Status Arthralgia acute Lumbar pain acute Type II diabetes mellitus ac [place] Bilateral hip pain acute Lumbar pain [facility] Work Phone: Evaluation note* Diagnosis Onset Date Resolution Status Submandibular abscess acute Chronic obstructive pulmonary disease, unspecified acute Esophageal abnormality acute Mass of left submandibular region [facility] Work Phone: Evaluation note* Diagnosis Onset Date Resolution Status Chronic obstructive pulmonary disease, unspecified acute Esophageal abnormality acute Mass of left submandibular region [facility] Work Phone: Evaluation note* Diagnosis Onset Date Resolution Status 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 Hiatal hernia [facility] Work Phone: Evaluation note* Diagnosis Esophageal dysphagia- Primary Dysphagia, pharyngoesophageal phase Neck mass Swelling, mass, or lump in head and neck documented in this encounter [facility] HealthcareEvaluation note* Diagnosis Dysphagia, unspecified type- Primary Black stools Nonspecific abnormal finding in stool contents Gastroesophageal reflux disease, unspecified whether esophagitis present Abnormal esophagram documented in this encounter [facility]* Diagnosis Dysphagia, unspecified type Black stools Nonspecific abnormal finding in stool contents documented in this encounter [facility] System[facility] general Narrative - Reported* Type Description Date Medical History Asthma Medical History skin cancer-lip Surgical History Left lung biopsy 1977 Surgical History L4 and L5 disc fusion 1984 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 Surgical History carpal tunnel release 2016 Surgical History tonsillectomy Hospitalization History 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 Hospitalization History pneumonia [facility] Other Hospital Discharge instructions No data available for this section [facility] HospitalHospital Discharge instructionsAmbulatory Orders* Referral to ENT Time Frame: 03/18/24, Location: None [facility] Work Phone: Hospital Discharge instructionsAmbulatory Orders* Referral to Urology Time Frame: 10/15/24, Location: None [facility] Work Phone: InstructionsNot on filedocumented in this encounter [facility] SystemInstructionsNot on filedocumented in this encounter [facility] SystemInstructionsNot on filedocumented in this encounter [facility] SystemProgress note No data available for this section [facility] HospitalReason for referral (narrative)No reason for referral information availableAv[facility] Work Phone: Summary Purpose Family History [...] 1 Epigastric abdominal pain (R10.13) Referral Organization [facility] Referring Provider First Name Jeremy Referring Provider Last Name Sona Referring Provider Specialty Family [facility] Referred Organization [facility] Referred Provider Sai Martinez Referred Address ,[place], [place],[address] Referred Provider Specialty Surgery Referral Priority Routine General Notes Es Camilo 11:38:02 AM >received today, attachments made, notes locked, referral faxed Reason 01/28/23 Access Or tho - B shoulder pain L>R - hopes for injections. Diagnosis 1 Pain in right should er (M25.511) Referral Organization [facility] Referring Provider First Name Jeremy Referring Provider Last Name Sona Referring Provider [facility] Referred Organization [facility] Referred Provider Barbie Tapia Referred Address ,[place], [place],[address] Referred Provider Specialty Orthopaedic Surgery Referral Priority [...] in right should er (M25.511) Referral Organization [facility] Referring Provider First Name Jeremy Referring Provider Last Name Sona Referring Provider [facility] Referred Organization [facility] Referred Provider Barbie Tapia Referred Address ,[place], [place],[address] Referred Provider Specialty Orthopaedic Surgery Referral Priority [...] call back reinier. 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 EPIC DATE CREATED AUTHOR AUTHOR'S ORGANIZ ATION 05/23/2024 [facility] DATE CREATED AUTHOR AUTHOR'S ORGANIZ ATION 05/29/2024 [facility] DATE CREATED AUTHOR AUTHOR'S ORGANIZ ATION 06/12/2024 [facility] ys[facility] DATE CREATED AUTHOR AUTHOR'S ORGANIZ ATION 11/06/2024 Sargent Gagan [facility] DATE CREATED AUTHOR AUTHOR'S ORGANIZ ATION 11/11/2024 Sargent Gagan [facility] DATE CREATED AUTHOR AUTHOR'S ORGANIZ ATION 11/29/2024 [facility] Patient Care team informatio n [...] Provider Active Start : October 23, 2023 Patient Safety Tech Relationship Specialty Start Date End Date Jeremy Magallanes MD [address] [facility] [place] [phone] PCP - General Family Medicine 01/23/23 Team Status: Inactive Member Role Status Dates Jeremy Magallanes MD Attending Provider Active St art: September 13, 2023 End: September 13, 2023 Patient Safety Tech Relationship Specialty Start Date End Date Jeremy Magallanes MD [address] [place] [facility] [place] [phone] Referring Family Medicine 05/12/24 Patient Safety Tech Relationship Specialty Start Date End Date Jeremy Magallanes MD [address] [facility] [place] [phone] PCP - General Family Medicine 01/23/23 Patient Safety Tech Relationship Specialty Start Date End Date Jeremy Magallanes MD [address] [facility] [place] [phone] PCP - General Family Medicine 01/23/23 Patient Safety Tech Relationship Specialty [place] [address] [place] [phone] PCP - General Family Medicine 01/23/23 Patient Safety Tech Relationship Specialty Start Date End Date Jeremy Magallanes MD [address] [place] [id number] PCP - General Family Medicine 06/03/19 Patient Safety Tech Relationship Specialty Start Date End Date Jeremy Magallanes MD [address] [place], [place] [phone] PCP - General Family Medicine 06/03/19 Patient Safety Tech Relationship Specialty Start Date End Date Jeremy Magallanes MD [address] [place], [place] [phone] PCP - General Family Medicine 06/03/19 Patient Safety Tech Relationship Specialty Start Date End Date Jeremy Magallanes MD [address] [place], [place] [phone] PCP - General Family Medicine 06/03/19 Team [...] BE BASED ON THE PRIMARY CLINICAL RECORDS. [facility] [employer] [facility]. provides no warranty or guarantee of the accuracy or completeness of information in this document.
== END 2025-03-08 06:45 | disposition home or self-care (01) ==
LOC: MRI 06:44
PROVIDERS: PCP Family Medicine; Visit Provider Nurse Practitioner
DX: M54.14 Radiculopathy, thoracic region (principal); M51.34 Other intervertebral disc degeneration, thoracic region
CPT/HCPCS: 72146

== ENCOUNTER 2025-03-24 07:27 | Outpatient (OUT) | payer MEDICARE, SELFPAY ==
--- OUTSIDE RECORDS SUMMARY | 2025-03-24 07:30 | XMS_ITS | Encounter Summary ---
Author Organization [facility] Address [address] [facility] [place] [address] Care Team Providers Care Health And Safety Consultant Name Role Phone Hannah Gallo MD Primary Care Provider [phone] Encounter Details Date Type Department Care Team (Late st Contact Info) Description 07/29/2023 Abstract [facility] [address] [facility] [address] [place] [phone] Andre Jesus, DO [address] [facility] [place] [address] Social History Tobacco Use Types Packs/Day Years Used Date Smoking Tobacco: Every Day Cigarettes Smokeless Tobacco: Never Alcohol Use Standard Drinks/Week Comments Never 0 (1 standard drink = 0.6 oz pur e alcohol) Caffine- Soda Sex and Gender Information Value Date Recorded Sex Assigned at Male 08/21/2023 9:53 AM EST Legal Sex Male 8:35 PM EDT Gender Identity Male 08/21/2023 9:53 AM EST Sexual Orientation Straight 08/21/2023 9: 53 AM EST documented as of this encounter Plan of Treatment Not on file documented as of this encounter Visit Diagnoses Not on filedocumented in this encounter Care Teams Health And Safety Consultant Relationship Specialty Start Date End Date Hannah Gallo MD PCP - General Family Medicine 01/23/23 documented as of this encounter
--- OUTSIDE RECORDS SUMMARY | 2025-03-24 07:30 | XMS_ITS | Encounter Summary ---
Author Organization [facility] Address [address] [place] [address] Care Team Providers Care Core Analyst Name Role Phone Hannah Gallo MD Primary Care Provider [phone] Encounter Details Date Type Department Care Team (Late st Contact Info) Description 05/30/2023 Clinisync Result Encounter [facility] External Department Unsolicited Andre Jesus, DO [address] [place], [place] [phone] Social History Tobacco Use Types Packs/Day Years [...] on file documented as of this encounter Procedures Procedure Name Priority Date/Time Associated Diagnosis Comments MRI SHOULDER W/O CONTRAST RIGHT 05/30/2023 1:41 PM EDT documented in this encounter Results * MRI SHOULDER W/O CONTRAST RIGHT (05/30/2023 1:41 PM EDT) Anatomical Region Laterality Modality Other 05/30/2023 1:41 PM EDT Narrative 05/31/2023 11:53 AM EDT Exam Date/Time: 05/30/2023 14:25 EDT Reason for [...] the subacromial subdeltoid bursa. Report Ordering Provider: Andre Jesus FINAL REPORT Dictated: 05/31/2023 11:50 am Ian Singh MD Signed (Electronic Signature): 05/31/2023 11:50 am Signed by: Ian Singh MD Transcribed by: TAMARA Technologist: STELLA Technical Comments None Procedure Note Radiology, Radiologist, - 05/31/2023 Exam Date/Time: 05/30/2023 14:25 EDT Reason for Exam: S46.911D Report IMPRESSION: Full-thickness rotator cuff tearing involving entire infraspinatus, andportion of supraspinatus as discussed. EXAMINATION: MRI Shoulder w/o Contrast Right HISTORY: Right shoulder pain. Injury starting a leaf blower. TECHNIQUE: Routine non-contrast MRI of the shoulder , right side COMPARISON: None RESULT: Overall limitations from motion. Best possible images submitted. Repeatsequences performed. Within these limits: Rotator Cuff Tendons: Full-thickness rotator cuff tearing involvingentire infraspinatus, and the more posterior/junctional fibers of supraspinatus,with medial retraction of torn fibers to near the acromion, with underlyingtendinosis. The more anterior fibers of supraspinatus appear grossly intact within limits ofmotion. Mild tendinosis involving subscapularis, without distinct tear. Teres minorappears intact. Areas of reactive cystic change at the insertions. Long Head Biceps Tendon: Appears intact with appropriate location. Muscle: Diffuse edema signal involving infraspinatus. Small amount ofedema involving supraspinatus. No distinct associated volume loss. Labrum: Areas of fraying and/or tearing. Bones and Marrow: No evidence of fracture or bone marrow replacingprocess. Glenohumeral Joint: Osteophytes without distinct measurable full- thicknesschondral defect within limits of motion. Small joint effusion. Acromioclavicular Joint: Moderate to severe degenerative changes withsubchondral cystic change, undersurface osteophytes. Other: Fluid extending into the subacromial subdeltoid bursa. Report Ordering Provider: Andre Jesus FINAL REPORT Dictated: 05/31/2023 11:50 am Ian Singh MD Signed (Electronic Signature): 05/31/2023 11:50 am Signed by: Ian Singh MD Transcribed by: TAMARA Technologist: STELLA Technical Comments None us Andre Jesus DO [facility] Final Result documented in this encounter Visit Diagnoses Not on filedocumented in this encounter Care Teams Core Analyst Relationship Specialty Start Date End Date Hannah Gallo MD PCP - General Family Medicine 01/23/23 documented as of this encounter
--- OUTSIDE RECORDS SUMMARY | 2025-03-24 07:30 | XMS_ITS | Encounter Summary ---
Author Organization [facility] Address [address] [place] [address] Care Team Providers Care Database Tester Name Role Phone Hannah Gallo MD Primary Care Provider [phone] Encounter Details Date Type Department Care Team (Late st Contact Info) Description 09/05/2023 Abstract [facility] [address] [facility] [phone] Andre Jesus DO [address] [place] [address] Social History Tobacco Use Types Packs/Day Years [...] on filedocumented in this encounter Care Teams Database Tester Relationship Specialty Start Date End Date Hannah Gallo MD PCP - General Family Medicine 01/23/23 documented as of this encounter
--- OUTSIDE RECORDS SUMMARY | 2025-03-24 07:30 | XMS_ITS | Encounter Summary ---
Author Organization [facility] Address [address] [place] [address] Care Team Providers Care Process Safety Engineer Name Role Phone Hannah Gallo MD Primary Care Provider [phone] Encounter Details Date Type Department Care Team (Late st Contact Info) Description 10/19/2024 Orders Only [facility] [address] [facility] [address] [place] [address] Hannah Gallo MD [address] [facility] [place] [address] Social History Tobacco Use Types Packs/Day Years [...] Procedure Name Priority Date/Time Associated Diagnosis Comments CT SCAN : S/T NECK W CONTRAST Routine 08/26/2024 9:46 AM EST documented in this encounter Results * CT SCAN : S/T NECK W CONTRAST (08/26/2024 9:46 AM EST) Anatomical Region Laterality Modality Radiographic Katheryn ging us Hannah Gallo MD IMG XR PROCEDURES Final Result documented in this encounter Visit Diagnoses Not on filedocumented in this encounter Care Teams Process Safety Engineer Relationship Specialty Start Date End Date Hannah Gallo MD PCP - General Family Medicine 01/23/23 documented as of this encounter
--- OUTSIDE RECORDS SUMMARY | 2025-03-24 07:30 | XMS_ITS | Clinical Summary ---
Author Organization [facility] Address [address] [place] [address] Care Team Providers Care Machine Riveter Name Role Phone Hannah Gallo MD Primary Care Provider [phone] Allergies Active Allergy Reactions Criticality Noted Date Comments Duloxetine Hcl GI intolerance 04/07/2024 Fentanyl 03/18/2024 Other Reaction(s): Hives Ibuprofen Rash Low 06/03/2019 hives Iodinated Contrast Media Rash Low 06/03/2019 hives Ofloxacin 03/18/2024 Other Reaction(s): Hives Olodaterol 03/18/2024 Other Reaction(s): shortness of breath Tiotropium 03/18/2024 Other Reaction(s): shortness of breath Medications glipiZIDE-metFO RMIN (Metaglip) 5-500 MG tablet Take 2 tablets by mouth in the morning and 2 tablets before bedtime. 07/19/2023 Active acetaminophen-c odeine (Tylenol w/ Codeine #3) 300-30 MG tablet Take 1 tablet by mouth every 6 (six) hours if needed 10/03/2023 Active tiZANidine (Zanaflex) 4 MG tablet Take 4 mg by mouth every 6 (six) hours if needed for muscle spasms 10/14/2023 Active Active Problems Problem Noted Date Diagnosed Date Liver mass 04/07/2024 Kidney cysts 04/07/2024 Neck mass 04/07/2024 Arthralgia 03/31/2024 Chronic obstructive pulmonary disease, unspecifi ed 03/31/2024 Lumbar pain 03/31/2024 Mass of left submandibular region 03/31/2024 Type II diabetes mellitus 03/31/2024 Positive colorectal cancer screening using Colog uard test 03/27/2023 Epigastric pain 03/27/2023 Gallbladder polyp 03/27/2023 Esophageal dysphagia 03/27/2023 Arthritis of left acromioclavicular joint 2022 Incomplete tear of left rotator cuff 03/25/2023 Internal derangement of left shoulder 03/25/2023 Rotator cuff arthropathy of left shoulder 2022 Rotator cuff impingement syndrome of right shoul shiela 01/28/2023 Immunizations Immunization Administration Dates Next Due Influenza, injectable, MDCK, preservative free, quadrivalent 06/02/2018 Influenza, injectable, quadrivalent, preservativ e free 05/16/2017,06/28/2016 Influenza, seasonal, injectable, preservative fr ee 05/25/2015 Pneumococcal Conjugate PCV 7 06/15/1999 Family History Medical History Relation Name Comments Cancer Father Relation Name Status Comments Brother 2 Father Maternal Grandfather Maternal Grandmother Mother Paternal Grandfather Paternal Grandmother Sister 2 sisters -- 1 sister Social History Tobacco Use Types Packs/Day Years Used Date Smoking Tobacco: Every Day Cigarettes Smokeless Tobacco: Never Tobacco Cessation:Ready to Q uit: Not Asked; Counseling Given: Not Answered Alcohol Use Standard Drinks/Week Comments Never 0 (1 standard drink = 0.6 oz pur e alcohol) Caffine- Soda Sex and Gender Information Value Date Recorded Sex Assigned at Male 08/21/2023 9:53 AM EST Legal Sex Male 8:35 PM EDT Gender Identity Male 08/21/2023 9:53 AM EST Sexual Orientation Straight 08/21/2023 9: 53 AM EST Last Filed Vital Signs Vital Sign Reading Time Taken Comments Blood Pressure 184/88 04/07/2024 10:04 AM EDT Pulse - - Temperature 36.2 C (97.2 F) 06/03/2023 8:17 AM EDT Respiratory Rate - - Oxygen Saturation - - Inhaled Oxygen Concentration - - Weight 107 kg (235 lb) 04/07/2024 10:04 AM EDT Height 180.3 cm (5' 11 ) 04/07/2024 10:04 AM EDT Body Mass Index 32.78 04/07/2024 10:04 AM EDT Plan of Treatment Not on file Insurance MEDICARE MEDICAID [place] Care Teams Machine Riveter Relationship Specialty Start Date End Date Hannah Gallo MD PCP - General Family Medicine 01/23/23
--- OUTSIDE RECORDS SUMMARY | 2025-03-24 07:30 | XMS_ITS | Encounter Summary ---
Author Organization [facility] Address [address] [place] [address] Care Team Providers Care Jewelry Finisher Name Role Phone Hannah Gallo MD Primary Care Provider [phone] Encounter Details Date Type Department Care Team (Late st Contact Info) Description 04/08/2024 Clinisync Result Encounter [facility] External Department Unsolicited Malathi Jimenez MD [address] [facility] [address] [place] [address] Social History Tobacco Use Types Packs/Day Years [...] Procedure Name Priority Date/Time Associated Diagnosis Comments XR CINERADIOGRAPHY 04/08/2024 10 :57 AM EDT documented in this encounter Results * XR CINERADIOGRAPHY (04/08/2024 10:57 AM EDT) Anatomical Region Laterality Modality Other 04/08/2024 10:5 7 AM EDT Narrative 04/08/2024 11:00 AM EDT The [address] [address] Fluoroscopy Report Signed Patient: NICHOLAS ZIEGLER MR#: [id number] : 1960 Acct:[id number] Age/Sex: 63 / M ADM Date: 04/08/24 Loc: [place] Attending Dr: Malathi Jimenez M.D. Ordering Physician: Malathi Jimenez M.D. Date of Service: 04/08/24 Procedure(s): FL cineradiography Accession Number(s): [id number] cc: Hannah Gallo M.D.; Malathi Jimenez M.D. [facility] [address] [address] Patient Name: NICHOLAS ZIEGLER MRN: [id number] date: 1960 Sex: M Assigned Patient Location: [place] Current Patient Location: [place] Accession/Order Number: [id number] Exam Date: 04/08/2024 08:45 Report Date: 04/08/2024 10:57 At the request of: MALATHI JIMENEZ Procedure: FL cineradiography EXAMINATION: FL barium swallow, FL cineradiography HISTORY: Pharyngoesophageal Dysphagia COMPARISON: No relevant comparison available. TECHNIQUE: A swallowing evaluation was performed with fluoroscopy in the usual manner. Standard level fluoroscopic mode of operation utilized. FINDINGS: ORAL PHASE: Normal deglutition. PHARYNGEAL PHASE: [...] passed into the stomach. OTHER: Negative. FL/FL cineradiography IMPRESSION: 1. Marked narrowing/incomplete opening of gastroesophageal valve. No mucosal irregularity to suggest a mass, but direct visualization is recommended. 2. Development of tertiary waves within the esophagus after fluid has accumulated and sat in the distal esophagus. Electronically authenticated by: DAKOTA LINN Date: 04/08/2024 10:57 Dictated By: Dakota Linn M.D. Signed By: 04/08/24 1100 DD/ 1057 TD/TT: Job Compositor: Procedure Note Radiology, Radiologist, MD - 04/08/2024 [place] [address] Fluoroscopy Report Signed Patient: NICHOLAS ZIEGLER JMR#: [id number] : 1960Acct:[id number] Age/Sex: 63 / MADM Date: 04/08/24 Loc: [place] Attending Dr: Malathi Jimenez M.D. Ordering Physician: Malathi Jimenez M.D. Date of Service: 04/08/24 Procedure(s): FL cineradiography Accession Number(s): [id number] cc: Hannah Gallo M.D.; Malathi Jimenez M.D. The [place] [address] Patient Name: NICHOLAS ZIEGLER MRN: [id number] date: 1960 Sex: M Assigned Patient Location: [place] Current Patient Location: [place] Accession/Order Number: [id number] Exam Date: 04/08/2024 08:45 Report Date: 04/08/2024 10:57 At the request of: MALATHI JIMENEZ Procedure: FL cineradiography EXAMINATION: FL barium swallow, FL cineradiography HISTORY: Pharyngoesophageal Dysphagia COMPARISON: No relevant comparison available. TECHNIQUE: A swallowing evaluation was performed with fluoroscopy in theusual manner. Standard level fluoroscopic mode of operation utilized. FINDINGS: ORAL PHASE: Normal deglutition. PHARYNGEAL PHASE: Normal swallowing. ASPIRATION: None. STRUCTURE: Marked narrowing versus incomplete opening of thegastroesophageal valve, 4 mm in maximum diameter during the study. Swallowed oral contrast accumulates within the esophagus with intermittent slight opening of the gastroesophageal valve allowing passage. Tertiary waves develop within the distal esophagus. Patient swallowed a 12 mm diameter barium tablet whichwould not pass through the gastroesophageal valve. Tablet eventually dissolvedand passed into the stomach. OTHER: Negative. FL/FL cineradiography IMPRESSION: 1. Marked narrowing/incomplete opening of gastroesophageal valve. Nomucosal irregularity to suggest a mass, but direct visualization is recommended. 2. Development of tertiary waves within the esophagus after fluid has accumulated and sat in the distal esophagus. Electronically authenticated by: DAKOTA LINN Date: 04/08/2024 10:57 Dictated By: Dakota Linn M.D. Signed By:04/08/24 1100 DD/ 1057 TD/TT: Job Compositor: us Malathi Jimenez MD [facility] Final Resul t documented in this encounter Visit Diagnoses Not on filedocumented in this encounter Care Teams Jewelry Finisher Relationship Specialty Start Date End Date Hannah Gallo MD PCP - General Family Medicine 01/23/23 documented as of this encounter
--- OUTSIDE RECORDS SUMMARY | 2025-03-24 07:30 | XMS_ITS | Clinical Summary ---
Author Organization [facility] Address [address] [place] [address] Care Team Providers Care Kennel Aide Name Role Phone Hannah Gallo MD Unavailable [phone] Social History Tobacco Use Types Packs/Day Years Used Date Smoking Tobacco: Never Assessed Sex and Gender Information Value Date Recorded Sex Assigned at Not on file Legal Sex Male 8:58 AM EST Gender Identity Not on file Sexual Orientation Not on file Plan of Treatment Not on file Insurance MEDICARE Care Teams Kennel Aide Relationship Specialty Start Date End Date Hannah Gallo MD [address] [place] [address] Referring Family Medicine 05/12/24
--- OUTSIDE RECORDS SUMMARY | 2025-03-24 07:30 | XMS_ITS | Clinical Summary ---
Author Organization [email or web address] [facility] tem Address [id number] [address] [place] [address] Care Team Providers Care Green Chain Off Bearer Name Role Phone Hannah Gallo MD Primary Care Provider [phone] Allergies Active Allergy Reactions Criticality Noted Date Comments Ibuprofen Hives,Rash Low 06/03/2019 hives Iodinated Contrast Media Hives,Rash Low 06/03/2019 hives Medications acetaminophen-codei ne (TYLENOL with CODEINE #4) 300-60 mg per tablet Take 1-2 tablets by mouth in the morning and 1-2 tablets before bedtime. Active albuterol (PROVENTIL HFA;VENTOLIN HFA) 90 mcg/actuation inhaler Inhale 2 puffs every 6 (six) hours as needed for wheezing. Pt states he only uses this twice a year, has not used in the last 3months Active acetaminophen-codei ne (TYLENOL #3) 300-30 mg per tablet Take 2 tablets by mouth every 4 (four) hours as needed. Active ondansetron ODT (ZOFRAN ODT) 4 mg disintegrating tablet Dissolve 1 tablet (4 mg total) on tongue once. 4 Active glipiZIDE-metFORMIN (METAGLIP) 5-500 mg per tablet Take 1 tablet by mouth 2 (two) times daily at 0800 and 1200. 3 Active omeprazole (PriLOSEC) 40 mg capsuleIndications: Gastroesophageal reflux disease, unspecified whether esophagitis present Take 1 capsule (40 mg total) by mouth in the morning. 60 capsule 4 Active Active Problems No known active problems Family History Medical History Relation Name Comments Cancer Father Liver cancer Father Cancer Maternal Aunt Cancer Maternal Grandmother Colon cancer Maternal Grandmother Cancer Mother Lung cancer Mother Relation Name Status Comments Father Maternal Aunt Maternal Grandmother Mother Social History Tobacco Use Types Packs/Day Years Used Date Smoking Tobacco: Every Day Smokeless Tobacco: Never Alcohol Use Standard Drinks/Week Comments Never 0 (1 standard drink = 0.6 oz pur e alcohol) AUDIT-C Answer Date Recorded Frequency of Alcohol Consumption Never 06/03/2019 Average Number of Drinks Not on file 019 Frequency of Binge Drinking Not on file 05/19 Childcare Answer Date Recorded Childcare Unknown 06/01/2019 Employment Answer Date Recorded Employment Unknown 06/01/2019 Purpose - Life Answer Date Recorded Purpose and direction in life Unknown Sex and Gender Information Value Date Recorded Sex Assigned at Not on file Legal Sex Male 10:38 AM EDT Gender Identity Not on file Sexual Orientation Not on file Last Filed Vital Signs Vital Sign Reading Time Taken Comments Blood Pressure - - Pulse - - Temperature - - Respiratory Rate - - Oxygen Saturation - - Inhaled Oxygen Concentration - - Weight 104.3 kg (230 lb) 05/27/2024 2:56 PM EDT Height 175.3 cm (5' 9 ) 05/27/2024 2:56 PM EDT Body Mass Index 33.97 05/27/2024 2:56 PM EDT Plan of Treatment Health Maintenance Due Date Last Done Comments Tobacco Counseling 1960 Depression Screening 1972 Adult BMI Follow Up Plan 1978 Zoster (Shingles) Vaccine (1 of 2) 2010 Influenza Vaccine 04/19/2025 06/02/2018, , 05/16/2017, Additional history exists Adult BMI Screening 05/27/2025 05/27/2024 Tobacco Screening 05/27/2025 05/27/2024 DTaP,Tdap and Td Vaccines (3 - Td or Tdap) 06/28/2026 06/28/2016, 05/25/2015 Medical Devices Not on file Insurance MEDICARE MEDICAID [place] Care Teams Green Chain Off Bearer Relationship Specialty Start Date End Date aHnnah Gallo MD [address] [place] [address] PCP - General Family Medicine 06/03/19
--- OUTSIDE RECORDS SUMMARY | 2025-03-24 07:30 | XMS_ITS | Encounter Summary ---
Author Organization [facility] Address [address] [place] [address] Care Team Providers Care Pneumatic Jacketer Name Role Phone Hannah Gallo MD Primary Care Provider [phone] Encounter Details Date Type Department Care Team (Late st Contact Info) Description 03/06/2023 Abstract [facility] [address] [place] [phone] Andre Jesus DO [address] [place] [address] Social History Tobacco Use Types Packs/Day Years Used Date Smoking Tobacco: Former Cigarettes Smokeless Tobacco: Never Tobacco Cessation:Counseling Given: Not Answered Alcohol Use Standard Drinks/Week Comments Never 0 (1 standard drink = 0.6 oz pur e alcohol) Sex and Gender Information Value Date Recorded Sex Assigned at Male 08/21/2023 9:53 AM EST Legal Sex Male 8:35 PM EDT Gender Identity Male 08/21/2023 9:53 AM EST Sexual Orientation Straight 08/21/2023 9: 53 AM EST documented as of this encounter Plan of Treatment Not on file documented as of this encounter Visit Diagnoses Not on filedocumented in this encounter Care Teams Pneumatic Jacketer Relationship Specialty Start Date End Date Hannah Gallo MD PCP - General Family Medicine 01/23/23 documented as of this encounter
--- OUTSIDE RECORDS SUMMARY | 2025-03-24 07:30 | XMS_ITS | Encounter Summary ---
Author Organization [facility] Address [address] [place] [address] Care Team Providers Care Novelty Worker Name Role Phone Hannah Gallo MD Primary Care Provider [phone] Reason for Visit * Reason Onset Date Comments Med Refill 08/26/2023 Encounter Details Date Type Department Care Team (Late st Contact Info) Description 08/26/2023 Refill [facility] [address] [facility] [place] [phone] Andre Jesus, [address] [place] [address] Nontraumatic complete tear of right rotator cuff Social History Tobacco Use Types Packs/Day Years [...] documented as of this encounter Visit Diagnoses Diagnosis Nontraumatic complete tear of right rotator cuff documented in this encounter Care Teams Novelty Worker Relationship Specialty Start Date End Date Hannah Gallo MD PCP - General Family Medicine 01/23/23 documented as of this encounter
--- NOTE | 2025-03-24 07:51 | PM.CN ---
Consult Note: HPI Data of Consult Patient: known to practice within the last 3 years Requesting Physician: Janneth Villalta NP Primary Care Provider: Hannah Gallo MD Consult Narrative Reason for consult: right flank and thoracic pain Narrative: Nicholas Ziegler a pleasant 64 year old male presents for evaluation of chronic right middle and low back pain, has had persistent lumbar and thoracic pain >12 months unresponsive to >6 weeks of PT/HEP, heat, ice, tylenol, and allergy to NSAIDs. Pain today 6/10 stabbing aching, increasing with standing, walking, pushing, pulling, pending, lifting. pain improved mildly with sleep, tylenol #3 and flexeril. denies medications side effects. recently underwent thoracic MRI with results below. cc:: CC: Janneth Villalta NP [facility] Medical History Melanoma ?C43.9 - Malignant melanoma of skin, unspecified (ICD-10) Tobacco user ?Z72.0 - Tobacco use (ICD-10) Type 2 diabetes mellitus with hyperglycemia ?E11.65 - Type 2 diabetes mellitus with hyperglycemia (ICD-10) Acute exacerbation of chronic obstructive pulmonary disease (COPD) ?J44.1 - Chronic obstructive pulmonary disease with (acute) exacerbation (ICD-10) Lumbar degenerative disc disease ?M51.36 - Other intervertebral disc degeneration, lumbar region (ICD-10) Influenza ?J11.1 - Influenza due to unidentified influenza virus with other respiratory manifestations (ICD-10) Acute bronchospasm ?J98.01 - Acute bronchospasm (ICD-10) Postoperative pain, acute, shoulder ?G89.18 - Other acute postprocedural pain (ICD-10) ?M25.519 - Pain in unspecified shoulder (ICD-10) Fever ?R50.9 - Fever, unspecified (ICD-10) Acute pain of right shoulder ?M25.511 - Pain in right shoulder (ICD-10) Rotator cuff arthropathy of right shoulder ?M12.811 - Other specific arthropathies, not elsewhere classified, right shoulder (ICD-10) Diabetes ?E11.9 - Type 2 diabetes mellitus without complications (ICD-10) COPD (chronic obstructive pulmonary disease) ?J44.9 - Chronic obstructive pulmonary disease, unspecified (ICD-10) Surgical History H/O colonoscopy ?Z98.890 - Other specified postprocedural states (ICD-10) History of carpal tunnel release ?Z98.890 - Other specified postprocedural states (ICD-10) H/O lumbosacral spine surgery ?Z98.890 - Other specified postprocedural states (ICD-10) S/P right rotator cuff repair ?Z98.890 - Other specified postprocedural states (ICD-10) Family History Other Family history of COPD (chronic obstructive pulmonary disease) Family history of cancer Family history of hypertension Social History Within the past year, how often did you have a drink containing alcohol: never Score interpretation: A score less than 4 is consistent with normal alcohol consumption. Smoking status: Current every day smoker Non-prescribed substance use: denies use Previous occupational history: retired Highest level of school completed/degree received: GED or equivalent Are you now , , , , never or living with a partner: In a typical week, how many times do you talk on the telephone with family, friends, or neighbors: 3 or more times per week How often do you get together with friends or relatives: 3 or more times per week How often do you attend spiritism or christianity services: never Do you belong to any clubs or organizations such as spiritism groups unions, fraternal or athletic groups, or school groups: no Total score: 2 Score interpretation: A score of greater than or equal to 2 indicates the lowest level of social isolation. Little interest or pleasure in doing things: not at all Feeling down, depressed, or hopeless: not at all Feel stressed/tense/nervous/anxious/difficulty sleeping: not at all Do you think of yourself as: straight/heterosexual Gender Identity: male Meds Home Medications and Allergies Home Medications ?Medication ?Instructions ?Recorded ?Confirmed ?Type glipizide 5 mg-metformin 500 mg 1 tab PO BID 08/23/23 12/22/24 History tablet lancets (Accu-Chek Fastclix Lancet 09/08/23 09/08/23 History Drum) albuterol sulfate 90 mcg/actuation 2 puff inhalation Q6H PRN 06/01/24 11/23/24 History aerosol inhaler shortness of breath or wheezing acetaminophen 300 mg-codeine 30 mg See Rx Instructions .Route 09/09/24 12/22/24 Rx tablet .COMPLEX PRN pain #180 tabs acetaminophen 300 mg-codeine 30 mg See Rx Instructions .Route 12/01/24 Rx tablet .COMPLEX PRN pain #180 tabs cefdinir 300 mg capsule 300 mg PO DAILY 12/22/24 12/22/24 History Allergies Allergy/AdvReac Type Severity Reaction Status Date / Time fentanyl Allergy Intermediate Hives Verified 11/23/24 07:07 ofloxacin Allergy Intermediate HIVES Verified 11/23/24 07:07 olodaterol (From Stiolto Allergy Intermediate SHORTNESS Verified 11/23/24 07:07 Respimat) OF BREATH tiotropium (From Stiolto Allergy Intermediate SHORTNESS Verified 11/23/24 07:07 Respimat) OF BREATH zafirlukast Allergy Intermediate Hives Verified 11/23/24 07:07 Iodinated Contrast Media Allergy Unknown Unknown Verified 11/23/24 07:07 ibuprofen (From Motrin) AdvReac Mild Hives Verified 11/23/24 07:07 Exam Constitutional Documenting provider has reviewed patient's vital signs: yes Common normals: no apparent distress, oriented x3, healthy appearing, alert and well nourished General appearance: cooperative HENMT Common normals: normocephalic, hearing grossly normal bilaterally and moist oral mucous membranes Head and scalp: normocephalic Eye Common normals: PERRL Pupil: PERRL Neck & C-Spine Common normals: full ROM General: normal visual inspection Chest Common normals: inspection of chest normal Respiratory Common normals: normal respiratory effort, no retractions and no use of accessory muscles Back & Pelvis Thoracic spine/upper back: pain with ROM and thoracic spinal tenderness Lumbar spine/lower back: ROM limited, pain with ROM and straight leg raise negative bilaterally Sacroiliac joints: SI joints normal Other: sensation intact BLE strength 5/5 in BLE radiculopathy noted to right T10,11,12 positive axial facet loading Extremity Common normals: normal to inspection and full ROM Neuro Common normals: oriented x3 Sensorium/orientation: alert Psych Common normals: mental status grossly normal, thought process normal, cooperative, affect normal, speech normal and activity/motor behavior normal Speech: normal speech Thought process: normal thought process Results Imaging thoracic mri: Attestation: I have reviewed the pertinent imaging results. Radiologist's impression: The thoracic vertebral body heights, alignment and bone marrow signal is unremarkable. The thoracic cord demonstrates normal signal and morphology. Mild hypertrophic changes and ligamentum flavum and facet degeneration notably T4-T5 and at T11-T12. This results in mild canal narrowing at T11-T12. Otherwise no significant disc disease, disc protrusion, central canal or neural foraminal narrowing identified elsewhere. Paraspinal soft tissues are unremarkable. Additional Findings Additional findings: If on a controlled substance or opioids, I have checked an [place] report on this patient and there are no aberrancies noted in the prescribing history.??If on a controlled substance or opioid a drug screen was completed and reviewed within the last year, and if there has not been a drug screen completed we ordered one today to monitor higher risk, state monitored pain medication use. As part of providing excellent, safe, comprehensive care, the following was completed at our patient's visit: 1. A medication reconciliation and review to ensure accurate knowledge of current/active medications, including asking our patients to inform us about any [id number] medications or herbal remedies/nutritional supplements/alternative remedies. 2. A review to specifically ensure our patients have had annual screening for screening for depression, screening for tobacco use, and screening for unhealthy alcohol use. For concerning screenings had a discussion with the patient, provided patient education, and recommended follow-up with primary care provider when appropriate. If patient noted with a risk of falling, they received education on strength, gait, and balance training to prevent future risk of falling. Portions of this note may have been carried over from the previous visit and updated as appropriate. Please note this office utilizes paper charting in addition to the electronic medical record. A list of current medications, vitals, and PMH is available there as the clinical staff outside of myself do not have access to [employer] charting during the clinic day operations. As part of providing quality comprehensive care the current medications, vitals, and PMH were reviewed in the paper chart. Assessment and Plan Assessment and Plan (1) Thoracic radiculopathy: Assessment and Plan: The patient has had over 3 months of moderate to severe right flank and thoracic pain with functional impairment and inadequate response to conservative care including NSAIDS (unless there are contraindication such as concurrent blood thinners), multiple oral or topical pain medications, and home exercise program/physical therapy.? Patient has completed >6 weeks of guided home exercise program and/or formal physical therapy program without relief of their symptoms.? I have reviewed the imaging of the thoracic and lumbar spine and no red flags were identified.? The Oswestry Disability Index was completed, and the patient scored a 40%.? The patient noted the following:?? moderate to severe pain impacting ADLs, sitting, standing, sleeping, social life, travel We discussed the risks and benefits of the procedure with the patient, and we are NOT planning on using sedation as outlined in the guidelines from Medicare unless there is a documented reason that sedation would be strongly recommended.?? ?The procedure will be completed with fluoroscopic guidance.? (2) Right flank pain, chronic: (3) Lumbar stenosis with neurogenic claudication: (4) Failed back syndrome: (5) Sacroiliitis: (6) Lumbar spondylosis: Plan MRI reviewed with pt, will proceed with right T10,11 T11,12 TFESI for thoracic radiculopathy under fluoroscopy continue current medications, risks vs benefits reviewed continue HEP as tolerated f/u 2 weeks after MAGAN
== END 2025-03-24 07:28 | disposition home or self-care (01) ==
LOC: PM 07:28
PROVIDERS: PCP Family Medicine; Visit Provider Nurse Practitioner
DX: M54.14 Radiculopathy, thoracic region (principal); R10.31 Right lower quadrant pain; M48.062 Spinal stenosis, lumbar region with neurogenic claudication; M96.1 Postlaminectomy syndrome, not elsewhere classified; M46.1 Sacroiliitis, not elsewhere classified; M47.816 Spondylosis without myelopathy or radiculopathy, lumbar region
CPT/HCPCS: G0463

== ENCOUNTER 2025-04-05 08:56 | Day surgery (SDC) | payer MEDICARE, SELFPAY ==
--- OUTSIDE RECORDS SUMMARY | 2025-04-05 09:02 | XMS_ITS | CCD ---
Author Organization [facility] Care Team Providers Care Civil Engineering Specialist Name Role Phone Ronnie Kesha Unavailable Chepe Harriet Unavailable Jeremy Magallanes Unavailable SONA, DR JEREMY Jovel Admitting Unavailable MAGALLANES, DR JEREMY Jovel Attending Unavailable MAGALLANES, DR JEREMY Jovel Primary Care Unavailable MAGALLANES, DR JEREMY Jovel Consulting Unavailable TAVERASRUBI Consulting Unavailable OLEXA, KESHA Admitting Unavailable OLEXA, KESHA Attending Unavailable MAGALLANES, DR JEREMY Jovel Primary Care Unavailable DANIELSVILLE, DR BARBIE Goldberg Consulting Unavailable OLEXA, KESHA [...] Consulting Unavailable JEREMY MAGALLANES Primary Care Physician [phone] Jeremy Magallanes MD Primary Care Provider WILLIE, [...] Primary Care Unavailable Bill Henry Attending Unavailable Blil Henry Admitting Unavailable Jeremy Magallanes MD Primary [...] Provider Yonis JACOB, Arnoldo Boggs Attending Provider [phone] Allergies Allergy Classification Reported Allergen(s) Allergy Type Date of Onset Reaction(s) Facility (20 sources) Ibuprofen Drug Allergy [facility] [employer] [facility] [employer] Other (20 sources) olodaterol / tiotropium Drug Allergy shortness of breath [employer] [facility] [employer] Other (20 sources) CT Scan dye Propensity to adverse reactions [employer] Other (13 sources) Ibuprofen; Translations: [IBUPROFEN] Drug Allergy 08-19-18 80 hives [facility] (2 sources) Iodine (And Iodine Containting Drugs) Drug allergy (disorder) 09-07-19 16 [facility] (1 source) NSAIDs Drug allergy (disorder) [facility] (20 sources) fentaNYL Drug Allergy 12-05-19 24 Unknown, [facility] (12 sources) Ibuprofen Drug Allergy 01-15-20 15 Rash, [facility] (20 sources) Ofloxacin Drug Allergy 12-05-19 24 Unknown, [facility] (3 sources) zafirlukast Drug Allergy 01-15-20 15 Unknown [employer] Other (20 sources) Zafirlukast *ANTIASTHMATIC AND BRONCHODILATOR AGEN Propensity to adverse reactions Unknown [employer] Other (20 sources) Ibuprofen & Diet Manage Prod *ANALGESICS - ANTI-IN Propensity to adverse reactions Unknown [employer] Other (3 sources) Allergies Reconciled Propensity to adverse reactions Unknown [employer] Other (20 sources) Iodinated contrast media (substance) Drug allergy 06-03-20 19 Rash, [facility] [employer] Other (3 sources) patient allergy list reviewed by nurse or physicia Propensity to adverse reactions 10-05-19 16 Comment:Done [employer] Other (14 sources) olodaterol Drug Allergy 12-05-19 24 shortness of breath [facility] (14 sources) tiotropium Drug Allergy 12-05-19 24 shortness of breath [facility] (11 sources) Iodinated Contrast Media; Translations: [IODINATED CONTRAST MEDIA] Allergy to substance 06-03-20 19 [facility] (10 sources) Ibuprofen & Diet Manage Prod * Allergy to substance 12-04-19 [facility] Comment on above: Free Text Allergy: I buprofen & Diet Manage Prod *ANALGESICS - ANTI-IN (10 sources) Zafirlukast *ANTIASTHMATIC AND Allergy to substance 12-04-19 [facility] Comment on above: Free Text Allergy: Z afirlukast *ANTIASTHMATIC AND BRONCHODILATOR AGEN (3 sources) DULoxetine Drug Allergy 04-07-20 24 GI intolerance [facility] (2 sources) cefdinir Drug Allergy 06-05-20 25 Vomiting [facility] Comment on above: nausea, vomiting Medications [...] Sep, Active take 2 tablets by mo [facility] every four hours as [...] as needed Orally every 6 hrs Active [id number] 200 actuat albuterol 0.09 mg/actuat metered dose [...] Start: 07-19-2023 take 2 tablets by mo [facility] in the morning glipiZIDE-metFORMIN (Metaglip) [...] Start: 11-23-2022 take 2 tablets by mo [facility] every twenty-four hours [...] days May, Active Start: 2023 HYDROcodone-ac etaminophen ([place]) 10-325 MG tablet Start: 2023 take 1 [...] 30 mg oral tablet (5 sources) Uncompetitive Q-fwjlbt-Z-aspartat e Receptor Antagonist, Sigma-1 Agonist Start: 05-26-2021 take 1 tablet by mouth every eight hours Alva DMT 30-30 MG 1 tablet Orally every [...] 8:39am Start: 02-20-2023 take 1 capsule by 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] Onset: 12-29-2021 Episodic Other [...] Lactate [Moles/Vol] 2.6 mmol/L Critically high 0.4-2.0 [facility] Comment on above: RESULTS CALLED TO GAURI SRINIVASAN RN at 0220 Basophils Auto (Bld) [#/Vol] on 12-22-2024 Basophils (Bld) [#/Vol] Automated basophil count 0.0-0.1 [facility] Basophils (Bld) [#/Vol] 0.0 10 3/uL 0.0-0.1 [facility] Basophils/100 WBC Auto (Bld) on 12-22-2024 Basophils/100 WBC (Bld) Automated basophil % 0.2-2.0 [facility] Basophils/100 WBC (Bld) 0.6 % 0.2-2.0 [facility] Basophils/100 WBC Manual cnt (Bld)on 12-22-2024 Basophils/100 WBC (Bld) Basophils/100 leukocytes in Blood by Manual count Low 0.2-2.0 [facility] Basophils/100 WBC (Bld) 0.0 % Low 0.2-2.0 [facility] Eosinophils/100 WBC Auto (Bl d)on 12-22-2024 Eosinophils/100 WBC (Bld) Automated eosinophil % 0.9-7.0 [facility] Eosinophils/100 WBC (Bld) 2.0 % 0.9-7.0 [facility] Eosinophils/100 WBC Manual c nt (Bld)on 12-22-2024 Eosinophils/100 WBC (Bld) Eosinophils/100 leukocytes in Blood by Manual count Low 0.9-7.0 [facility] Eosinophils/100 WBC (Bld) 0.0 % Low 0.9-7.0 [facility] Erythrocyte distribution wid th Auto (RBC) [Ratio]on 12-22-2024 Erythrocyte distribution width (RBC) [Ratio] 13.5 % 11.0-15.0 [facility] Estimated glomerular filtrat ion rate (GFR) non- Americanon 12-22-2024 GFR/1.73 sq M.predicted among non-blacks MDRD (S/P/Bld) [Vol rate/Area] Estimated glomerular filtration rate (GFR) non- Low >=60 mL/min/1.73m 2 [facility] GFR/1.73 sq M.predicted among non-blacks MDRD (S/P/Bld) [Vol rate/Area] 59 mL/min/{1.73_m2} Low >=60 mL/min/1.73m 2 [facility] Globulin Calc (S) [Mass/Vol] on 12-22-2024 Globulin (S) [Mass/Vol] Serum globulin measurement by calculation (mass/volume) [facility] Globulin (S) [Mass/Vol] 3.6 g/dL [facility] Glucose mean value [Mass/vol ume] in Blood Estimated from glycated hemoglobinon 12-22-2024 Average glucose Estimated from glycated hemoglobin (Bld) [Mass/Vol] Glucose mean value [Mass/volume] in Blood Estimated from glycated hemoglobin [facility] Average glucose Estimated from glycated hemoglobin (Bld) [Mass/Vol] 192 mg/dL [facility] Hematocrit Auto (Bld) [Volum e fraction]on 12-22-2024 Hematocrit (Bld) [Volume fraction] 56.3 % High 42.0-54.0 [facility] Hemoglobin A1c percentageon 12-22-2024 HbA1c (Bld) [Mass fraction] Hemoglobin A1c percentage High 4.5-6.2 [facility] Comment on above: ADA RECOMMENDED LIMI T 4.0 - 6.0ADA THERAPEUTIC TARGET < 7.0ACTION SUGGESTED> 7.0 HbA1c (Bld) [Mass fraction] 8.3 % High 4.5-6.2 [facility] Comment on above: ADA RECOMMENDED LIMI T 4.0 - 6.0ADA THERAPEUTIC TARGET < 7.0ACTION SUGGESTED> 7.0 Hemoglobin [Mass/volume] in Bloodon 12-22-2024 Hemoglobin (Bld) [Mass/Vol] 18.9 g/dL High 14.0-18.0 [facility] Laboratory - Chemistry and C hemistry - challengeon 12-22-2024 Albumin [Mass/Vol] 4.3 g/dL 3.4-5.0 [facility] ALP [Catalytic activity/Vol] 121 U/L High 46-116 [facility] ALT [Catalytic activity/Vol] 46 U/L 16-63 [facility] AST [Catalytic activity/Vol] 17 U/L 15-37 [facility] Bilirubin [Mass/Vol] 0.4 mg/dL 0.2-1.[address] [facility] Calcium [Mass/Vol] 9.7 mg/dL 8.5-10.1 [facility] Chloride [Moles/Vol] 99 mmol/L 98-[address] [facility] CO2 [Moles/Vol] 21.7 mmol/L 21.0-32.0 [facility] Creatinine [Mass/Vol] 1.24 mg/dL 0.70-1.30 [facility] GFR/1.73 sq M.predicted MDRD (S/P/Bld) [Vol rate/Area] mL/min/{1.73_m2} >=60 mL/min/1.73m 2 [facility] Glucose [Mass/Vol] 278 mg/dL High 74-106 [facility] Lactate [Moles/Vol] 2.3 mmol/L Critically high 0.4-2.0 [facility] Comment on above: RESULTS CALLED TO DIONE CABALLERO RN at 0009 Lipase [Catalytic activity/Vol] 31.0 U/L 16.0-77.0 [facility] Potassium [Moles/Vol] 4.6 mmol/L 3.5-5.1 [facility] Protein [Mass/Vol] 7.9 g/dL 6.4-8.2 [facility] Sodium [Moles/Vol] 133 mmol/L Low 136-145 [facility] Urea nitrogen [Mass/Vol] 15.0 mg/dL 7.0-18.0 [facility] Urea nitrogen/Creatinine [Mass ratio] 12.1 mg/mg [facility] TSH Qn 1.532 m[IU]/L 0.358-3.740 [facility] Laboratory - Hematology and Cell countson 12-22-2024 Lymphocytes/100 WBC (Bld) 1.0 % Low 20.5-60.0 [facility] Monocytes/100 WBC (Bld) 7.0 % 1.7-12.0 [facility] Immature granulocytes/100 WBC (Bld) 0.2 % 0.0-0.5 [facility] Leukocytes [#/volume] correc jean claude for nucleated erythrocytes in Blood by Automated counon 12-22-2024 WBC corrected for nucl RBC Auto (Bld) [#/Vol] 14.4 10 3/uL High 4.0-11.0 [facility] Lymphocytes Auto (Bld) [#/Vo l]on 12-22-2024 Lymphocytes (Bld) [#/Vol] Lymphocytes [#/volume] in Blood by Automated count 1.2-3.8 [facility] Lymphocytes (Bld) [#/Vol] 2.1 10 3/uL 1.2-3.8 [facility] Lymphocytes/100 WBC Auto (Bl d)on 12-22-2024 Lymphocytes/100 WBC (Bld) Lymphocytes/100 leukocytes in Blood by Automated count 20.5-60.0 [facility] Lymphocytes/100 WBC (Bld) 31.7 % 20.5-60.0 [facility] MCH Auto (RBC) [Entitic mass ]on 12-22-2024 MCH (RBC) [Entitic mass] 29.7 pg 25.9-34.0 [facility] MCHC Auto (RBC) [Mass/Vol]on 12-22-2024 MCHC (RBC) [Mass/Vol] 33.6 g/dL 29.9-35.2 [facility] MCV Auto (RBC) [Entitic vol] on 12-22-2024 MCV (RBC) [Entitic vol] 88.5 fL 80.0-94.0 [facility] Microalbumin [Mass/volume] i n Urineon 12-22-2024 Albumin DL <= 20 mg/L (U) [Mass/Vol] Microalbumin [Mass/volume] in Urine <=30.0 [facility] Albumin DL <= 20 mg/L (U) [Mass/Vol] 2.0 mg/dL <=30.0 [facility] Monocytes Auto (Bld) [#/Vol] on 12-22-2024 Monocytes (Bld) [#/Vol] Automated blood monocyte count 0.3-0.8 [facility] Monocytes (Bld) [#/Vol] 0.7 10 3/uL 0.3-0.8 [facility] Monocytes/100 WBC Auto (Bld) on 12-22-2024 Monocytes/100 WBC (Bld) Automated monocyte % 1.7-12.0 [facility] Monocytes/100 WBC (Bld) 10.7 % 1.7-12.0 [facility] Neutrophils Auto (Bld) [#/Vo l]on 12-22-2024 Neutrophils (Bld) [#/Vol] Neutrophils [#/volume] in Blood by Automated count 1.4-6.5 [facility] Neutrophils (Bld) [#/Vol] 3.6 10 3/uL 1.4-6.5 [facility] Neutrophils/100 WBC Auto (Bl d)on 12-22-2024 Neutrophils/100 WBC (Bld) Automated neutrophil % 43.0-75.0 [facility] Neutrophils/100 WBC (Bld) 54.8 % 43.0-75.0 [facility] No Panel Informationon 12-22 Absolute Basophils (Manual) 0.00 10 3/uL 0.00-0.10 [facility] Eosinophils # (Manual) 0.00 10 3/uL 0.00-0.70 [facility] Lymphocytes # (Manual) 0.14 10 3/uL Low 1.20-3.80 [facility] Monocytes # (Manual) 1.00 10 3/uL High 0.30-0.80 [facility] Segmented Neutrophils # (Manual) 13.24 10 3/uL High 1.4-6.5 [facility] Troponin I High Sensitivity <4.0 pg/mL Low 4.0-76.1 [facility] Comment on above: CUT-OFF POINTS HAVE [...] Eosinophils # (Auto) 0.1 10 3/uL 0.0-0.7 [facility] Immature Granulocyte # (Auto) 0.01 10 3/uL 0.00-0.03 [facility] Prostate Specific Antigen Screen 0.89 ng/mL <=4.00 [facility] Urine Random Creatinine 79.28 mg/dL 20.00-300.00 [facility] Platelet mean volume Auto (B ld) [Entitic vol]on 12-22-2024 Platelet mean volume (Bld) [Entitic vol] 9.4 fL Low 9.5-13.5 [facility] Platelets Auto (Bld) [#/Vol] on 12-22-2024 Platelets (Bld) [#/Vol] 319 10 3/uL 150-450 [facility] RBC Auto (Bld) [#/Vol]on RBC (Bld) [#/Vol] 6.36 10 6/uL High 4.70-6.10 [facility] Segmented neutrophils/100 WB C Manual cnt (Bld)on 12-22-2024 Segmented neutrophils/100 WBC (Bld) Manual blood segmented neutrophils/100 leukocytes High 43.0-75.0 [facility] Segmented neutrophils/100 WBC (Bld) 92.0 % High 43.0-75.0 [facility] Serum or plasma albumin/glob ulin mass ratioon 12-22-2024 Albumin/Globulin [Mass ratio] Serum or plasma albumin/globulin mass ratio [facility] Albumin/Globulin [Mass ratio] 1.2 {ratio} [facility] Serum or plasma anion gap de terminationon 12-22-2024 Anion gap [Moles/Vol] Serum or plasma anion gap determination [facility] Anion gap [Moles/Vol] 16.9 mmol/L [facility] Urine microalbumin/creatinin e mass ratioon 12-22-2024 Albumin/Creatinine DL <= 20 mg/L (U) [Mass ratio] Urine microalbumin/creatin ine mass ratio 0.0-29.9 [facility] Comment on above: NO MICROALBUMINURIA 0-29 MG/GCLINICAL MICROALBUMINURIA 30-300 MG/GMACROALBUMINURIA >300 MG/G Albumin/Creatinine DL <= 20 mg/L (U) [Mass ratio] 25.2 mg/g 0.0-29.9 [facility] Comment on above: NO MICROALBUMINURIA 0-29 MG/GCLINICAL MICROALBUMINURIA 30-300 MG/GMACROALBUMINURIA >300 MG/G CHEMISTRYOrdered By: Sonia Brandt on 11-04-2024 HbA1c (Bld) [Mass fraction] 9.5 % High <=5.9% [facility] [id number] 11-04-2024 HbA1c (Bld) [Mass fraction] 9.5 % High <=5.9 [facility] Comment on above: Performed By: #### [id number] #### [facility] [address] [place] [id number] Basophils Auto (Bld) [#/Vol] on 10-11-2024 Basophils (Bld) [#/Vol] Automated basophil count 0.0-0.1 [facility] Basophils/100 WBC Auto (Bld) on 10-11-2024 Basophils/100 WBC (Bld) Automated basophil % 0.2-2.0 [facility] Eosinophils/100 WBC Auto (Bl d)on 10-11-2024 Eosinophils/100 WBC (Bld) Automated eosinophil % 0.9-7.0 [facility] Erythrocyte distribution wid th Auto (RBC) [Ratio]on 10-11-2024 Erythrocyte distribution width (RBC) [Ratio] Erythrocyte distribution width [Ratio] by Automated count 11.0-15.0 [facility] Estimated glomerular filtrat ion rate (GFR) non- Americanon 10-11-2024 GFR/1.73 sq M.predicted among non-blacks MDRD (S/P/Bld) [Vol rate/Area] Estimated glomerular filtration rate (GFR) non- >=60 mL/min/1.73m 2 [facility] Globulin Calc (S) [Mass/Vol] on 10-11-2024 Globulin (S) [Mass/Vol] Serum globulin measurement by calculation (mass/volume) [facility] Hematocrit Auto (Bld) [Volum e fraction]on 10-11-2024 Hematocrit (Bld) [Volume fraction] Hematocrit [Volume Fraction] of Blood by Automated count 42.0-54.0 [facility] Hemoglobin [Mass/volume] in Bloodon 10-11-2024 Hemoglobin (Bld) [Mass/Vol] Hemoglobin [Mass/volume] in Blood 14.0-18.0 [facility] Laboratory - Chemistry and C hemistry - challengeon 10-11-2024 Albumin [Mass/Vol] 3.5 g/dL 3.4-5.0 [facility] ALP [Catalytic activity/Vol] 102 U/L 46-116 [facility] ALT [Catalytic activity/Vol] 39 U/L 16-63 [facility] AST [Catalytic activity/Vol] 13 U/L Low 15-37 [facility] Bilirubin [Mass/Vol] 0.2 mg/dL 0.2-1.[address] [facility] Calcium [Mass/Vol] 9.1 mg/dL 8.5-10.1 [facility] Chloride [Moles/Vol] 102 mmol/L 98-[address] [facility] CO2 [Moles/Vol] 28.4 mmol/L 21.0-32.0 [facility] Creatinine [Mass/Vol] 0.97 mg/dL 0.70-1.30 [facility] GFR/1.73 sq M.predicted MDRD (S/P/Bld) [Vol rate/Area] mL/min/{1.73_m2} >=60 mL/min/1.73m 2 [facility] Glucose [Mass/Vol] 317 mg/dL High 74-106 [facility] Potassium [Moles/Vol] 4.3 mmol/L 3.5-5.1 [facility] Protein [Mass/Vol] 6.7 g/dL 6.4-8.2 [facility] Sodium [Moles/Vol] 136 mmol/L 136-145 [facility] Urea nitrogen [Mass/Vol] 14.0 mg/dL 7.0-18.0 [facility] Urea nitrogen/Creatinine [Mass ratio] 14.4 mg/mg [facility] Laboratory - Hematology and Cell countson 10-11-2024 Immature granulocytes/100 WBC (Bld) 0.2 % 0.0-0.5 [facility] Leukocytes [#/volume] correc jean claude for nucleated erythrocytes in Blood by Automated counon 10-11-2024 WBC corrected for nucl RBC Auto (Bld) [#/Vol] Leukocytes [#/volume] corrected for nucleated erythrocytes in Blood by Automated coun 4.0-11.0 [facility] Lymphocytes Auto (Bld) [#/Vo l]on 10-11-2024 Lymphocytes (Bld) [#/Vol] Lymphocytes [#/volume] in Blood by Automated count 1.2-3.8 [facility] Lymphocytes/100 WBC Auto (Bl d)on 10-11-2024 Lymphocytes/100 WBC (Bld) Lymphocytes/100 leukocytes in Blood by Automated count 20.5-60.0 [facility] MCH Auto (RBC) [Entitic mass ]on 10-11-2024 MCH (RBC) [Entitic mass] MCH [Entitic mass] by Automated count 25.9-34.0 [facility] MCHC Auto (RBC) [Mass/Vol]on 10-11-2024 MCHC (RBC) [Mass/Vol] MCHC [Mass/volume] by Automated count 29.9-35.2 [facility] MCV Auto (RBC) [Entitic vol] on 10-11-2024 MCV (RBC) [Entitic vol] MCV [Entitic volume] by Automated count 80.0-94.0 [facility] Monocytes Auto (Bld) [#/Vol] on 10-11-2024 Monocytes (Bld) [#/Vol] Automated blood monocyte count 0.3-0.8 [facility] Monocytes/100 WBC Auto (Bld) on 10-11-2024 Monocytes/100 WBC (Bld) Automated monocyte % 1.7-12.0 [facility] Neutrophils Auto (Bld) [#/Vo l]on 10-11-2024 Neutrophils (Bld) [#/Vol] Neutrophils [#/volume] in Blood by Automated count 1.4-6.5 [facility] Neutrophils/100 WBC Auto (Bl d)on 10-11-2024 Neutrophils/100 WBC (Bld) Automated neutrophil % 43.0-75.0 [facility] No Panel Informationon 10-11 Eosinophils # (Auto) 0.2 10 3/uL 0.0-0.7 [facility] Immature Granulocyte # (Auto) 0.02 10 3/uL 0.00-0.03 [facility] Platelet mean volume Auto (B ld) [Entitic vol]on 10-11-2024 Platelet mean volume (Bld) [Entitic vol] Platelet mean volume [Entitic volume] in Blood by Automated count Low 9.5-13.5 [facility] Platelets Auto (Bld) [#/Vol] on 10-11-2024 Platelets (Bld) [#/Vol] Platelets [#/volume] in Blood by Automated count 150-450 [facility] RBC Auto (Bld) [#/Vol]on RBC (Bld) [#/Vol] Erythrocytes [#/volume] in Blood by Automated count 4.70-6.10 [facility] Serum or plasma albumin/glob ulin mass ratioon 10-11-2024 Albumin/Globulin [Mass ratio] Serum or plasma albumin/globulin mass ratio [facility] Serum or plasma anion gap de terminationon 10-11-2024 Anion gap [Moles/Vol] Serum or plasma anion gap determination [facility] Estimated glomerular filtrat ion rate (GFR) non- Americanon 08-26-2024 GFR/1.73 sq M.predicted among non-blacks MDRD (S/P/Bld) [Vol rate/Area] Estimated glomerular filtration rate (GFR) non- >=60 mL/min/1.73m 2 [facility] Laboratory - Chemistry and C hemistry - challengeon 08-26-2024 Creatinine [Mass/Vol] 1.02 mg/dL 0.70-1.30 [facility] GFR/1.73 sq M.predicted MDRD (S/P/Bld) [Vol rate/Area] mL/min/{1.73_m2} >=60 mL/min/1.73m 2 [facility] EGDon 06-03-2024 [facility] [place] [facility] No Panel InformationOrdered By: Rosalia Shea on 06-03-2024 [employer] [place] [facility] No Panel InformationOrdered By: Bill Henry on 06-03-2024 Miscellaneous Pathology Test See comment [facility] Comment on above: See report. Scanned copy available in EMR. No Panel Informationon 06-03 Helicobacter pylori Urease Test Negative [facility] Pathology Request for Lab Co rpon 06-03-2024 Pathology Request for Lab Raymond Normal [facility] Comment on above: Order Comment: PATHO LOGY GI SPECIMEN Result Comment: See report. Scanned copy available in EMR. PERFORMED BY: [place] [address] PATHOLOGIST PIPELINE SUPERINTENDENT DIVISION JON PONCE M.D. Performed By: #### P A[facility] TO [facility] #### [address] [id number] NICHOLAS CRAIG ([id number]) 1960 M Date Time Provider Department 05/14/24 AMEYA MERAZ [id number] During your visit today, we recorded the following information about you: Keily Martines 05/14/2024 1:11 PM Signed Referral was sent from [facility] for new consult with Dr Meraz Please see below and advise Vivian Morley 05/15/2024 11:54 AM Addendum Consult from Dr. 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] Problem List As Of Date: 05/14/2024 (None) Encounter Status:Closed by VIVIAN MORLEY on 05/21/24 Normal [facility] Basophils Auto (Bld) [#/Vol] on 02-27-2024 Basophils (Bld) [#/Vol] 0.1 10 3/uL 0.0-0.1 [facility] Basophils/100 WBC Auto (Bld) on 02-27-2024 Basophils/100 WBC (Bld) 0.5 % 0.2-2.0 [facility] Eosinophils/100 WBC Auto (Bl d)on 02-27-2024 Eosinophils/100 WBC (Bld) 2.5 % 0.9-7.0 [facility] Erythrocyte distribution wid th Auto (RBC) [Ratio]on 02-27-2024 Erythrocyte distribution width (RBC) [Ratio] 13.5 % 11.0-15.0 [facility] Estimated glomerular filtrat ion rate (GFR) non- Americanon 02-27-2024 GFR/1.73 sq M.predicted among non-blacks MDRD (S/P/Bld) [Vol rate/Area] mL/min/{1.73_m2} >=60 [facility] Hematocrit Auto (Bld) [Volum e fraction]on 02-27-2024 Hematocrit (Bld) [Volume fraction] 47.1 % 42.0-54.0 [facility] Hemoglobin [Mass/volume] in Bloodon 02-27-2024 Hemoglobin (Bld) [Mass/Vol] 15.5 g/dL 14.0-18.0 [facility] Laboratory - Chemistry and C hemistry - challengeon 02-27-2024 Calcium [Mass/Vol] 8.9 mg/dL 8.5-10.1 [facility] Chloride [Moles/Vol] 98 mmol/L 98-[address] [facility] CO2 [Moles/Vol] 28.1 mmol/L 21.0-32.0 [facility] Creatinine [Mass/Vol] 0.86 mg/dL 0.70-1.30 [facility] GFR/1.73 sq M.predicted MDRD (S/P/Bld) [Vol rate/Area] mL/min/{1.73_m2} >=60 [facility] Glucose [Mass/Vol] 237 mg/dL High 74-106 [facility] Lactate [Moles/Vol] 1.3 mmol/L 0.4-2.0 [facility] Potassium [Moles/Vol] 4.4 mmol/L 3.5-5.1 [facility] Sodium [Moles/Vol] 130 mmol/L Low 136-145 [facility] Urea nitrogen [Mass/Vol] 21.0 mg/dL High 7.0-18.0 [facility] Urea nitrogen/Creatinine [Mass ratio] 24.4 mg/mg [facility] Laboratory - Hematology and Cell countson 02-27-2024 Immature granulocytes/100 WBC (Bld) 0.3 % 0.0-0.5 [facility] Leukocytes [#/volume] correc jean claude for nucleated erythrocytes in Blood by Automated counon 02-27-2024 WBC corrected for nucl RBC Auto (Bld) [#/Vol] 9.3 10 3/uL 4.0-11.0 [facility] Lymphocytes Auto (Bld) [#/Vo l]on 02-27-2024 Lymphocytes (Bld) [#/Vol] 2.4 10 3/uL 1.2-3.8 [facility] Lymphocytes/100 WBC Auto (Bl d)on 02-27-2024 Lymphocytes/100 WBC (Bld) 25.5 % 20.5-60.0 [facility] MCH Auto (RBC) [Entitic mass ]on 02-27-2024 MCH (RBC) [Entitic mass] 29.1 pg 25.9-34.0 [facility] MCHC Auto (RBC) [Mass/Vol]on 02-27-2024 MCHC (RBC) [Mass/Vol] 32.9 g/dL 29.9-35.2 [facility] MCV Auto (RBC) [Entitic vol] on 02-27-2024 MCV (RBC) [Entitic vol] 88.5 fL 80.0-94.0 [facility] Monocytes Auto (Bld) [#/Vol] on 02-27-2024 Monocytes (Bld) [#/Vol] 1.1 10 3/uL High 0.3-0.8 [facility] Monocytes/100 WBC Auto (Bld) on 02-27-2024 Monocytes/100 WBC (Bld) 12.0 % 1.7-12.0 [facility] Neutrophils Auto (Bld) [#/Vo l]on 02-27-2024 Neutrophils (Bld) [#/Vol] 5.5 10 3/uL 1.4-6.5 [facility] Neutrophils/100 WBC Auto (Bl d)on 02-27-2024 Neutrophils/100 WBC (Bld) 59.2 % 43.0-75.0 [facility] No Panel Informationon 02-26 Eosinophils # (Auto) 0.2 10 3/uL 0.0-0.7 [facility] Immature Granulocyte # (Auto) 0.03 10 3/uL 0.00-0.03 [facility] Platelet mean volume Auto (B ld) [Entitic vol]on 02-27-2024 Platelet mean volume (Bld) [Entitic vol] 8.8 fL Low 9.5-13.5 [facility] Platelets Auto (Bld) [#/Vol] on 02-27-2024 Platelets (Bld) [#/Vol] 288 10 3/uL 150-450 [facility] RBC Auto (Bld) [#/Vol]on RBC (Bld) [#/Vol] 5.32 10 6/uL 4.70-6.10 [facility] Serum or plasma anion gap de terminationon 02-27-2024 Anion gap [Moles/Vol] 8.3 mmol/L [facility] Basophils Auto (Bld) [#/Vol] on 12-05-2023 Basophils (Bld) [#/Vol] 0.1 10 3/uL 0.0-0.1 [facility] Basophils/100 WBC Auto (Bld) on 12-05-2023 Basophils/100 WBC (Bld) 0.9 % 0.2-2.0 [facility] Eosinophils/100 WBC Auto (Bl d)on 12-05-2023 Eosinophils/100 WBC (Bld) 2.7 % 0.9-7.0 [facility] Erythrocyte distribution wid th Auto (RBC) [Ratio]on 12-05-2023 Erythrocyte distribution width (RBC) [Ratio] 13.1 % 11.0-15.0 [facility] Estimated glomerular filtrat ion rate (GFR) non- Americanon 12-05-2023 GFR/1.73 sq M.predicted among non-blacks MDRD (S/P/Bld) [Vol rate/Area] mL/min/{1.73_m2} >=60 [facility] Glucose mean value [Mass/vol ume] in Blood Estimated from glycated hemoglobinon 12-05-2023 Average glucose Estimated from glycated hemoglobin (Bld) [Mass/Vol] 171 mg/dL [facility] Hematocrit Auto (Bld) [Volum e fraction]on 12-05-2023 Hematocrit (Bld) [Volume fraction] 48.9 % 42.0-54.0 [facility] Hemoglobin [Mass/volume] in Bloodon 12-05-2023 Hemoglobin (Bld) [Mass/Vol] 16.0 g/dL 14.0-18.0 [facility] Laboratory - Chemistry and C hemistry - challengeon 12-05-2023 Calcium [Mass/Vol] 9.7 mg/dL 8.5-10.1 [facility] Chloride [Moles/Vol] 102 mmol/L 98-[address] [facility] CO2 [Moles/Vol] 27.6 mmol/L 21.0-32.0 [facility] Creatinine [Mass/Vol] 1.01 mg/dL 0.70-1.30 [facility] GFR/1.73 sq M.predicted MDRD (S/P/Bld) [Vol rate/Area] mL/min/{1.73_m2} >=60 [facility] Glucose [Mass/Vol] 156 mg/dL High 74-106 [facility] Potassium [Moles/Vol] 4.4 mmol/L 3.5-5.1 [facility] Sodium [Moles/Vol] 139 mmol/L 136-145 [facility] Urea nitrogen [Mass/Vol] 13.0 mg/dL 7.0-18.0 [facility] Urea nitrogen/Creatinine [Mass ratio] 12.9 mg/mg [facility] Laboratory - Hematology and Cell countson 12-05-2023 ESR (Bld) [Velocity] 17 mm/h <=[address] [facility] HbA1c (Bld) [Mass fraction] 7.6 % High 4.5-6.2 [facility] Comment on above: ADA RECOMMENDED LIMI T 4.0 - 6.0ADA THERAPEUTIC TARGET < 7.0ACTION SUGGESTED> 7.0 Immature granulocytes/100 WBC (Bld) 0.4 % 0.0-0.5 [facility] Leukocytes [#/volume] correc jean claude for nucleated erythrocytes in Blood by Automated counon 12-05-2023 WBC corrected for nucl RBC Auto (Bld) [#/Vol] 7.7 10 3/uL 4.0-11.0 [facility] Lymphocytes Auto (Bld) [#/Vo l]on 12-05-2023 Lymphocytes (Bld) [#/Vol] 2.4 10 3/uL 1.2-3.8 [facility] Lymphocytes/100 WBC Auto (Bl d)on 12-05-2023 Lymphocytes/100 WBC (Bld) 31.2 % 20.5-60.0 [facility] MCH Auto (RBC) [Entitic mass ]on 12-05-2023 MCH (RBC) [Entitic mass] 28.5 pg 25.9-34.0 [facility] MCHC Auto (RBC) [Mass/Vol]on 12-05-2023 MCHC (RBC) [Mass/Vol] 32.7 g/dL 29.9-35.2 [facility] MCV Auto (RBC) [Entitic vol] on 12-05-2023 MCV (RBC) [Entitic vol] 87.0 fL 80.0-94.0 [facility] Monocytes Auto (Bld) [#/Vol] on 12-05-2023 Monocytes (Bld) [#/Vol] 0.7 10 3/uL 0.3-0.8 [facility] Monocytes/100 WBC Auto (Bld) on 12-05-2023 Monocytes/100 WBC (Bld) 9.5 % 1.7-12.0 [facility] Neutrophils Auto (Bld) [#/Vo l]on 12-05-2023 Neutrophils (Bld) [#/Vol] 4.2 10 3/uL 1.4-6.5 [facility] Neutrophils/100 WBC Auto (Bl d)on 12-05-2023 Neutrophils/100 WBC (Bld) 55.3 % 43.0-75.0 [facility] No Panel Informationon 12-04 Eosinophils # (Auto) 0.2 10 3/uL 0.0-0.7 [facility] Immature Granulocyte # (Auto) 0.03 10 3/uL 0.00-0.03 [facility] Platelet mean volume Auto (B ld) [Entitic vol]on 12-05-2023 Platelet mean volume (Bld) [Entitic vol] 8.6 fL Low 9.5-13.5 [facility] Platelets Auto (Bld) [#/Vol] on 12-05-2023 Platelets (Bld) [#/Vol] 330 10 3/uL 150-450 [facility] RBC Auto (Bld) [#/Vol]on RBC (Bld) [#/Vol] 5.62 10 6/uL 4.70-6.10 [facility] Serum or plasma anion gap de terminationon 12-05-2023 Anion gap [Moles/Vol] 13.8 mmol/L [facility] Magnesiumon 07-02-2023 Magnesium [Mass/Vol] 2.7255654 mg/dL Normal 1.8- 2.4 mg/dL [employer] Other Magnesium see note [employer] Other XR CHEST 2 Von 11-24-2022 XR [...] TAVERAS Date: 2022-11-24 17:17 [address] [facility] [address] LUNG CANCER SCREENINGon 1 09-20-2021 [...] NAVAS Date: 2022-07-20 07:18 Normal [facility] CBC AUTO DIFFon 06-07-2022 BASO # 0.1 103/ul Normal 0.0-0.1 [facility] Comment on above: Performed By: #### C BC #### [facility] [address] [place] [address] Dr. Eran Chacon Basophils/100 WBC (Bld) 0.6 % Normal 0.2-2.0 [facility] Comment on above: Performed By: #### C BC #### [facility] [address] [place] [address] Dr. Eran Chacon EO # 0.3 103/ul Normal 0.0-0.7 [facility] Comment on above: Performed By: #### C BC #### [facility] [address] [place] [address] Dr. Eran Chacon Eosinophils/100 WBC (Bld) 3.3 % Normal 0.9-7.0 [facility] Comment on above: Performed By: #### C BC #### [facility] [address] [place] [address] Dr. Eran Chacon Erythrocyte distribution width (RBC) [Ratio] 12.9 % Normal 11.0-15.0 [facility] Comment on above: Performed By: #### C BC #### [facility] [address] [place] [address] Dr. Eran Chacon Hematocrit (Bld) [Volume fraction] 47.7 % Normal 42.0-54.0 [facility] Comment on above: Performed By: #### C BC #### [facility] [address] [place] [address] Dr. Eran Chacon Hemoglobin (Bld) [Mass/Vol] 15.9 g/dL Normal 14.0-18.0 [facility] Comment on above: Performed By: #### C BC #### [facility] [address] [place] [address] Dr. Eran Chacon IG # 0.02 10e3/ul Normal 0.00-0.03 [facility] Comment on above: Performed By: #### C BC #### [facility] [address] [place] [address] Dr. Eran Chacon IG % 0.2 % Normal 0.0-0.5 [facility] Comment on above: Performed By: #### C BC #### [facility] [address] [place] [address] Dr. Eran Chacon LYMPH # 3.4 103/ul Normal 1.2-3.8 [facility] Comment on above: Performed By: #### C BC #### [facility] [address] [place] [address] Dr. Eran Chacon Lymphocytes/100 WBC (Bld) 34.5 % Normal 20.5-60.0 [facility] Comment on above: Performed By: #### C BC #### [facility] [address] [place] [address] Dr. Eran Chacon MANUAL DIFF REQ NO Normal [facility] Comment on above: Performed By: #### C BC #### [facility] [address] [place] [address] Dr. Eran Chacon MCH (RBC) [Entitic mass] 29.6 pg Normal 25.9-34.0 [facility] Comment on above: Performed By: #### C BC #### [facility] [address] [place] [address] Dr. Eran Chacon MCHC (RBC) [Mass/Vol] 33.3 g/dL Normal 29.9-35.2 [facility] Comment on above: Performed By: #### C BC #### [facility] [address] [place] [address] Dr. Eran Chacon MCV (RBC) [Entitic vol] 88.8 fL Normal 80.0-94.0 [facility] Comment on above: Performed By: #### C BC #### [facility] [address] [place] [address] Dr. Eran Chacon MONO # 0.9 103/ul Critically high 0.3-0.8 [facility] Comment on above: Performed By: #### C BC #### [facility] [address] [place] [address] Dr. Eran Chacon Monocytes/100 WBC (Bld) 9.3 % Normal 1.7-12.0 [facility] Comment on above: Performed By: #### C BC #### [facility] [address] [place] [address] Dr. Eran Chacon NEUT # 5.2 103/ul Normal 1.4-6.5 [facility] Comment on above: Performed By: #### C BC #### [facility] [address] [place] [address] Dr. Eran Chacon Neutrophils/100 WBC (Bld) 52.1 % Normal 43.0-75.0 [facility] Comment on above: Performed By: #### C BC #### [facility] [address] [place] [address] Dr. Eran Chacon Platelet mean volume (Bld) [Entitic vol] 8.8 fL Critically low 9.5-13.5 [facility] Comment on above: Performed By: #### C BC #### [facility] [address] [place] [address] Dr. Eran Chacon PLT 287 103/ul Normal 150-450 [facility] Comment on above: Performed By: #### C BC #### [facility] [address] [place] [address] Dr. Eran Chacon RBC 5.37 106/ul Normal 4.70-6.10 [facility] Comment on above: Performed By: #### C BC #### [facility] [address] [place] [address] Dr. Eran Chacon WBC 9.9 103/ul Normal 4.0-11.0 [facility] Comment on above: Performed By: #### C BC #### [facility] [address] [place] [address] Dr. Eran Chacon ER URINE PROFILEon 2 Bilirubin Ql (U) Negative Normal NEGATIVE [facility] Comment on above: Performed By: #### E RUR, UMICRO #### [facility] [address] [place] [address] Dr. Eran Chacon Clarity (U) CLEAR Normal CLEAR [facility] Comment on above: Performed By: #### Med SHER UMICRO #### [facility] [address] [address] [address] Eran Chacon Color (U) YELLOW Normal YELLOW [facility] Comment on above: Performed By: #### Med SHER UMICRO #### [facility] [address] [place] [address] Dr. Eran GATES A micrscopic examination will be performed if indicated. Normal [facility] Comment on above: Performed By: #### Med SHER UMICRO #### [facility] [address] [place] [address] Dr. Eran Chacon Glucose Ql (U) 500 mg/dl Abnormal NEGATIVE [facility] Comment on above: Performed By: #### Med SHER UMICRO #### [facility] [address] [place] [address] Dr. Eran Chacon Hemoglobin Ql (U) TRACE-INTACT Abnormal NEGATIVE [facility] Comment on above: Performed By: #### Med SHER UMICRO #### [facility] [address] [place] [address] Dr. Eran Chacon Ketones Ql (U) Negative Normal NEGATIVE [facility] Comment on above: Performed By: #### eMd SHER UMICRO #### [facility] [address] [place] [address] Dr. Eran Chacon LEUKOCYTES Negative Normal NEGATIVE [facility] Comment on above: Performed By: #### Med SHER UMICRO #### [facility] [address] [place] [address] Dr. Eran Chacon Nitrite Ql (U) Negative Normal NEGATIVE [facility] Comment on above: Performed By: #### Med SHER UMICRO #### [facility] [address] [place] [address] Dr. Eran Chacon pH (U) 6.0 [pH] Normal 5-9 [facility] Comment on above: Performed By: #### Med SHER UMICRO #### [facility] [address] [place] [address] Dr. Eran Chacon SPEC GRAVITY 1.025 Normal 1.005-<=1.02 5 [facility] Comment on above: Performed By: #### HANNA BATES #### [facility] [address] [place] [address] Dr. Eran Chacon UA PROTEIN Negative Normal NEGATIVE/ TRACE [facility] Comment on above: Performed By: #### HANNA BATES #### [facility] [address] [place] [address] Dr. Eran Chacon UR MICRO IND INDICATED Normal [facility] Comment on above: Performed By: #### HANNA BATES #### [facility] [address] [place] [address] Dr. Eran Chacon Urobilinogen Qn (U) 0.2 {Aureliano'U}/dL Normal 0.2 - 1. 0 [facility] Comment on above: Performed By: #### HANNA BATES #### [facility] [address] [place] [address] Dr. Eran Chacon PROF 14(COMP METB)on 022 Albumin [Mass/Vol] 4.0 g/dL Normal 3.4-5.0 [facility] Comment on above: Performed By: #### C MP #### [facility] [address] [place] [address] Dr. Eran Chacon Albumin/Globulin [Mass ratio] 1.2 {ratio} Normal [facility] Comment on above: Performed By: #### C MP #### [facility] [address] [place] [address] Dr. Eran Chacon ALP [Catalytic activity/Vol] 104 U/L Normal 46-116 [facility] Comment on above: Performed By: #### C MP #### [facility] [address] [place] [address] Dr. Eran Chacon ALT [Catalytic activity/Vol] 28 U/L Normal 16-63 [facility] Comment on above: Performed By: #### C MP #### [facility] [address] [place], [place] [id number] Dr. Eran Chacon Anion gap [Moles/Vol] 7.2 mmol/L Normal [facility] Comment on above: Performed By: #### C MP #### [facility] [address] [address] [address] Eran Chacon AST [Catalytic activity/Vol] 14 U/L Critically low 15-37 [facility] Comment on above: Performed By: #### C MP #### [facility] [address] [address] [address] Eran Chacon Bilirubin [Mass/Vol] 0.4 mg/dL Normal 0.2-1.0 [facility] Comment on above: Performed By: #### C MP #### [facility] [address] [address] [address] Eran Chacon Calcium [Mass/Vol] 9.0 mg/dL Normal 8.5-10.1 [facility] Comment on above: Performed By: #### C MP #### [facility] [address] [place] [address] Dr. Eran Chacon Chloride [Moles/Vol] 103 mmol/L Normal 98-107 [facility] Comment on above: Performed By: #### C MP #### [facility] [address] [address] [address] Eran Chacon CO2 [Moles/Vol] 30.0 mmol/L Normal 21.0-32.[address] [facility] Comment on above: Performed By: #### C MP #### [facility] [address] [address] [address] Eran Chacon Creatinine [Mass/Vol] 0.85 mg/dL Normal 0.70-1.30 [facility] Comment on above: Performed By: #### C MP #### [facility] [address] [place] [address] Dr. rEan Chacon EGFR-AF INDONESIAN >60 Normal >=[address] [facility] Comment on above: Performed By: #### C MP #### [facility] [address] [place] [address] Dr. Eran Chacon EGFR-NON AF INDONESIAN >60 Normal >=60 [facility] Comment on above: Performed By: #### C MP #### [facility] [address] [address] [address] Eran Chacon Globulin (S) [Mass/Vol] 3.3 g/dL Normal [facility] Comment on above: Performed By: #### C MP #### [facility] [address] [address] [address] Eran Chacon Glucose [Mass/Vol] 165 mg/dL Critically high 74-106 [facility] Comment on above: Performed By: #### C MP #### [facility] [address] [address] [address] Eran Chacon Potassium [Moles/Vol] 4.2 mmol/L Normal 3.5-5.1 [facility] Comment on above: Performed By: #### C MP #### [facility] [address] [address] [address] Eran Chacon Protein [Mass/Vol] 7.3 g/dL Normal 6.4-8.2 [facility] Comment on above: Performed By: #### C MP #### [facility] [address] [address] [address] Eran Chacon Sodium [Moles/Vol] 136 mmol/L Normal 136-145 [facility] Comment on above: Performed By: #### C MP #### [facility] [address] [address] [address] Eran Chacon Urea nitrogen [Mass/Vol] 10.0 mg/dL Normal 7.0-18.0 [facility] Comment on above: Performed By: #### C MP #### [facility] [address] [address] [address] Eran Chacon Urea nitrogen/Creatinine [Mass ratio] 11.8 mg/mg Normal [facility] Comment on above: Performed By: #### C MP #### [facility] [address] [address] [address] Eran Chacon URINE MICROSCOPIC ONLYon BACTERIA NONE SEEN Normal NONE SEEN [facility] Comment on above: Performed By: #### Med SHER UMICRO #### [facility] [address] [place] [address] Dr. Eran Chacon Bacteria identified Cx Nom (U) NOT INDICATED Normal [facility] Comment on above: Performed By: #### E NIKKY, UMICRO #### [facility] [address] [place] [address] Dr. Eran Chacon CAST NONE SEEN Normal NONE SEEN [facility] Comment on above: Performed By: #### E NIKKY UMICRO #### [facility] [address] [place] [address] Dr. Eran Chacon Crystals LM Nom (Urine sed) NONE SEEN Normal NONE SEEN [facility] Comment on above: Performed By: #### Med SHER UMICRO #### [facility] [address] [place] [address] Dr. Eran Chacon Epithelial cells LM Ql (Urine sed) RARE Normal NONE SEEN /RARE [facility] Comment on above: Performed By: #### Med SHER UMICRO #### [facility] [address] [place] [address] Dr. Eran Chacon MUCOUS NONE SEEN Normal NONE SEEN [facility] Comment on above: Performed By: #### Med SHER UMICRO #### [facility] [address] [place] [address] Dr. Eran Chacon RBC 0-2 Normal 0-2 [facility] Comment on above: Performed By: #### Med SHER UMICRO #### [facility] [address] [place] [address] Dr. Eran Chacon WBC 2-5 Abnormal NONE SEEN [facility] Comment on above: Performed By: #### Med SHER UMICRO #### [facility] [address] [place] [address] Dr. Eran Chacon MRI SHOULDER LT WO [...] by: YEISON NAVAS Date: 2022-02-02 17:09 Normal [facility] Vital Signs Date Time Vital Sign Value Performing Clinician Facility 02-16-2025 14:47-0400 Body height 175.26 cm Jeremy Magallanes MD Work Phone: [facility] 02-16-2025 14:47-0400 Body mass index (BMI) [Ratio] 34 kg/m2 Jeremy Magallanes MD Work Phone: [facility] 02-16-2025 14:47-0400 Body weight 104.32 kg Jeremy Magallanes MD Work Phone: [facility] 02-16-2025 14:47-0400 Diastolic blood pressure 74 mm[Hg] Jeremy Magallanes MD Work Phone: [facility] 02-16-2025 14:47-0400 Heart rate 81 /min Jeremy Magallanes MD Work Phone: [facility] 02-16-2025 14:47-0400 Respiratory rate 12 /min Jeremy Magallanes MD Work Phone: [facility] 02-16-2025 14:47-0400 SaO2% (BldA) [Mass fraction] 97 % Jeremy Magallanes MD Work Phone: [facility] 02-16-2025 14:47-0400 Systolic blood pressure 120 mm[Hg] Jeremy Magallanes MD Work Phone: [facility] 01-21-2025 09:27-0400 Body height 175.26 cm [facility] 01-21-2025 09:27-0400 Body mass index (BMI) [Ratio] 34.1 kg/m2 [facility] 01-21-2025 09:27-0400 Body temperature 98.5 [degF] [facility] 01-21-2025 09:27-0400 Body weight 104.77 kg [facility] 01-21-2025 09:27-0400 Diastolic blood pressure 82 mm[Hg] [facility] 01-21-2025 09:27-0400 Heart rate 72 /min [facility] 01-21-2025 09:27-0400 SaO2% (BldA) [Mass fraction] 97 % [facility] 01-21-2025 09:27-0400 Systolic blood pressure 144 mm[Hg] [facility] 12-22-2024 08:21-0400 Body height 175.26 cm [facility] 12-22-2024 08:21-0400 Body mass index (BMI) [Ratio] 33.6 kg/m2 [facility] 12-22-2024 08:21-0400 Body temperature 98.6 [degF] [facility] 12-22-2024 08:21-0400 Body weight 103.41 kg [facility] 12-22-2024 08:21-0400 Diastolic blood pressure 81 mm[Hg] [facility] 12-22-2024 08:21-0400 Heart rate 71 /min [facility] 12-22-2024 08:21-0400 SaO2% (BldA) [Mass fraction] 94 % [facility] 12-22-2024 08:21-0400 Systolic blood pressure 143 mm[Hg] [facility] 10-15-2024 08:56-0500 Body height 175.26 cm [facility] 10-15-2024 08:56-0500 Body mass index (BMI) [Ratio] 34.5 kg/m2 [facility] 10-15-2024 08:56-0500 Body temperature 98 [degF] [facility] 10-15-2024 08:56-0500 Body weight 106.14 kg [facility] 10-15-2024 08:56-0500 Diastolic blood pressure 81 mm[Hg] [facility] 10-15-2024 08:56-0500 Heart rate 76 /min [facility] 10-15-2024 08:56-0500 Systolic blood pressure 136 mm[Hg] [facility] 07-23-2024 10:21-0500 Body height 175.26 cm [facility] 07-23-2024 10:21-0500 Body mass index (BMI) [Ratio] 34.2 kg/m2 [facility] 07-23-2024 10:21-0500 Body weight 105.23 kg [facility] 07-23-2024 10:21-0500 Diastolic blood pressure 75 mm[Hg] [facility] 07-23-2024 10:21-0500 Heart rate 73 /min [facility] 07-23-2024 10:21-0500 SaO2% (BldA) [Mass fraction] 97 % [facility] 07-23-2024 10:21-0500 Systolic blood pressure 133 mm[Hg] [facility] 06-17-2024 09:13-0400 Body height 175.26 cm MD Jeremy Magallanes Work Phone: [facility] 06-17-2024 09:13-0400 Body mass index (BMI) [Ratio] 33.5 kg/m2 MD Jeremy Magallanes Work Phone: [facility] 06-17-2024 09:13-0400 Body temperature 98.1 [degF] MD Jeremy Magallanes Work Phone: [facility] 06-17-2024 09:13-0400 Body weight 102.96 kg MD Jeremy Magallanes Work Phone: [facility] 06-17-2024 09:13-0400 Diastolic blood pressure 83 mm[Hg] MD Jeremy Magallanes Work Phone: [facility] 06-17-2024 09:13-0400 Heart rate 79 /min MD Jeremy Magallanes Work Phone: [facility] 06-17-2024 09:13-0400 Systolic blood pressure 149 mm[Hg] MD Jeremy Magallanes Work Phone: [facility] 05-27-2024 14:56-0400 Body height 175.3 cm [employer] Work Phone: [facility] 05-27-2024 14:56-0400 Body mass index (BMI) [Ratio] 33.97 kg/m2 [employer] Work Phone: [facility] [facility] 05-27-2024 14:56-0400 Body weight 104.33 kg [employer] Work Phone: [facility] 04-07-2024 10:04-0400 Body height 180.3 cm Malathi Sanchez MD Work Phone: [facility] 04-07-2024 10:04-0400 Body mass index (BMI) [Ratio] 32.78 kg/m2 Malathi Sanchez MD Work Phone: [facility] 04-07-2024 10:04-0400 Body weight 106.59 kg Malathi Sanchez MD Work Phone: [facility] 04-07-2024 10:04-0400 Diastolic blood pressure 88 mm[Hg] Malathi Sanchez MD Work Phone: [facility] 04-07-2024 10:04-0400 Systolic blood pressure 184 mm[Hg] Malathi Sanchez MD Work Phone: [facility] 03-18-2024 08:46-0400 Body height 175.26 cm [facility] 03-18-2024 08:46-0400 Body mass index (BMI) [Ratio] 34.4 kg/m2 [facility] 03-18-2024 08:46-0400 Body weight 105.68 kg [facility] 03-18-2024 08:46-0400 Diastolic blood pressure 80 mm[Hg] [facility] 03-18-2024 08:46-0400 Heart rate 72 /min [facility] 03-18-2024 08:46-0400 Systolic blood pressure 130 mm[Hg] [facility] 03-03-2024 11:54-0400 Body height 175.26 cm [facility] 03-03-2024 11:54-0400 Body mass index (BMI) [Ratio] 34.7 kg/m2 [facility] 03-03-2024 11:54-0400 Body weight 106.59 kg [facility] 03-03-2024 11:54-0400 Diastolic blood pressure 81 mm[Hg] [facility] 03-03-2024 11:54-0400 Heart rate 69 /min [facility] 03-03-2024 11:54-0400 Systolic blood pressure 129 mm[Hg] [facility] 12-17-2023 08:54-0400 Body height 175.26 cm [facility] 12-17-2023 08:54-0400 Body mass index (BMI) [Ratio] 35.2 kg/m2 [facility] 12-17-2023 08:54-0400 Body weight 108.4 kg [facility] 12-17-2023 08:54-0400 Diastolic blood pressure 76 mm[Hg] [facility] 12-17-2023 08:54-0400 Heart rate 76 /min [facility] 12-17-2023 08:54-0400 Systolic blood pressure 154 mm[Hg] [facility] 12-05-2023 08:52-0400 Body height 175.26 cm [facility] 12-05-2023 08:52-0400 Body mass index (BMI) [Ratio] 35 kg/m2 [facility] 12-05-2023 08:52-0400 Body weight 107.67 kg [facility] 12-05-2023 08:52-0400 Diastolic blood pressure 78 mm[Hg] [facility] 12-05-2023 08:52-0400 Heart rate 69 /min [facility] 12-05-2023 08:52-0400 Systolic blood pressure 147 mm[Hg] [facility] 09-13-2023 13:30-0500 Body height 175.26 cm Jeremy Magallanes Other [facility] 09-13-2023 13:30-0500 Body mass index (BMI) [Ratio] 33.22 kg/m2 Jeremy Magallanes Other [employer] [facility] [employer] Other 09-13-2023 13:30-0500 Body temperature 98.4 [degF] Jeremy Magallanes Other [employer] [facility] [employer] Other 09-13-2023 13:30-0500 Body weight 102.06 kg Jeremy Magallanes Other [employer] [facility] [employer] Other 09-13-2023 13:30-0500 Body weight 102.05 kg [facility] 09-13-2023 13:30-0500 Diastolic blood pressure 80 mm[Hg] Jeremy Magallanes Other [facility] 09-13-2023 13:30-0500 SaO2% (BldA) [Mass fraction] 93 % Jeremy Magallanes Other [employer] [facility] [employer] Other 09-13-2023 13:30-0500 Systolic blood pressure 118 mm[Hg] Jeremy Magallanes Other [facility] 08-13-2023 10:30-0500 Body height 175.26 cm Jeremy Magallanes Other [employer] Other 08-13-2023 10:30-0500 Body mass index (BMI) [Ratio] 33.9 kg/m2 Jeremy Magallanes Other [employer] Other 08-13-2023 10:30-0500 Body weight 104.15 kg Jeremy Magallanes Other [employer] Other 08-13-2023 10:30-0500 Diastolic blood pressure 78 mm[Hg] Jeremy Magallanes Other [employer] Other 08-13-2023 10:30-0500 Systolic blood pressure 124 mm[Hg] Jeremy Magallanes Other [employer] Other 06-25-2023 08:45-0500 Body height 175.26 cm Jeremy Magallanes Other [employer] Other 06-25-2023 08:45-0500 Body mass index (BMI) [Ratio] 33.37 kg/m2 Jeremy Magallanes Other [employer] Other 06-25-2023 08:45-0500 Body temperature 96.5 [degF] Jeremy Magallanes Other [employer] Other 06-25-2023 08:45-0500 Body weight 102.51 kg Jeremy Magallanes Other [employer] Other 06-25-2023 08:45-0500 Diastolic blood pressure 85 mm[Hg] Jeremy Magallanes Other [employer] Other 06-25-2023 08:45-0500 Systolic blood pressure 149 mm[Hg] Jeremy Magallanes Other [employer] Other 05-28-2023 10:45-0400 Body height 175.26 cm Jeremy Magallanes Other [employer] Other 05-28-2023 10:45-0400 Body mass index (BMI) [Ratio] 33.52 kg/m2 Jeremy Magallanes Other [employer] Other 05-28-2023 10:45-0400 Body weight 102.97 kg Jeremy Magallanes Other [employer] Other 05-28-2023 10:45-0400 Diastolic blood pressure 82 mm[Hg] Jeremy Magallanes Other [employer] Other 05-28-2023 10:45-0400 Systolic blood pressure 147 mm[Hg] Jeremy Magallanes Other [employer] Other 2023 08:45-0400 Body height 175.26 cm Jeremy Magallanes Other [employer] Other 2023 08:45-0400 Body mass index (BMI) [Ratio] 33.52 kg/m2 Jeremy Magallanes Other [employer] Other 2023 08:45-0400 Body weight 102.97 kg Jeremy Magallanes Other [employer] Other 2023 08:45-0400 Diastolic blood pressure 85 mm[Hg] Jeremy Magallanes Other [employer] Other 2023 08:45-0400 Systolic blood pressure 156 mm[Hg] Jeremy Magallanes Other [employer] Other 04-30-2023 09:45-0400 Body height 175.26 cm Jeremy Magallanes Other [employer] Other 04-30-2023 09:45-0400 Body mass index (BMI) [Ratio] 34.32 kg/m2 Jeremy Magallanes Other [employer] Other 04-30-2023 09:45-0400 Body temperature 96.2 [degF] Jeremy Magallanes Other [employer] Other 04-30-2023 09:45-0400 Body weight 105.42 kg Jeremy Magallanes Other [employer] Other 04-30-2023 09:45-0400 Diastolic blood pressure 78 mm[Hg] Jeremy Magallanes Other [employer] Other 04-30-2023 09:45-0400 Respiratory rate 16 /min Jeremy Magallanes Other [employer] Other 04-30-2023 09:45-0400 Systolic blood pressure 146 mm[Hg] Jeremy Magallanes Other [employer] Other 02-20-2023 09:15-0400 Body height 175.26 cm Jeremy Magallanes Other [employer] Other 02-20-2023 09:15-0400 Body mass index (BMI) [Ratio] 33.46 kg/m2 Jeremy Magallanes Other [employer] Other 02-20-2023 09:15-0400 Body weight 102.79 kg Jeremy Magallanes Other [employer] Other 02-20-2023 09:15-0400 Diastolic blood pressure 77 mm[Hg] Jeremy Magallanes Other [employer] Other 02-20-2023 09:15-0400 Systolic blood pressure 131 mm[Hg] Jeremy Magallanes Other [employer] Other 01-17-2023 08:45-0400 Body height 175.26 cm Jeremy Magallanes Other [employer] Other 01-17-2023 08:45-0400 Body mass index (BMI) [Ratio] 33.37 kg/m2 Jeremy Magallanes Other [employer] Other 01-17-2023 08:45-0400 Body weight 102.51 kg Jeremy Magallanes Other [employer] Other 01-17-2023 08:45-0400 Diastolic blood pressure 79 mm[Hg] Jeremy Magallanes Other [employer] Other 01-17-2023 08:45-0400 Systolic blood pressure 128 mm[Hg] Jeremy Magallanes Other [employer] Other 11-23-2022 09:30-0400 Body height 175.26 cm Jeremy Magallanes Other [employer] Other 11-23-2022 09:30-0400 Body mass index (BMI) [Ratio] 33.96 kg/m2 Jeremy Magallanes Other [employer] Other 11-23-2022 09:30-0400 Body weight 104.33 kg Jeremy Magallanes Other [employer] Other 11-23-2022 09:30-0400 Diastolic blood pressure 72 mm[Hg] Jeremy Magallanes Other [employer] Other 11-23-2022 09:30-0400 Systolic blood pressure 122 mm[Hg] Jeremy Magallanes Other [employer] Other 09-04-2022 11:30-0500 Body height 175.26 cm Jeremy Magallanes Other [employer] Other 09-04-2022 11:30-0500 Body mass index (BMI) [Ratio] 33.52 kg/m2 Jeremy Magallanes Other [employer] Other 09-04-2022 11:30-0500 Body weight 102.97 kg Jeremy Magallanes Other [employer] Other 09-04-2022 11:30-0500 Diastolic blood pressure 80 mm[Hg] Jeremy Magallanes Other [employer] Other 09-04-2022 11:30-0500 SaO2% (BldA) [Mass fraction] 95 % Jeremy Magallanes Other [employer] Other 09-04-2022 11:30-0500 Systolic blood pressure 122 mm[Hg] Jeremy Magallanes Other [employer] Other 02-06-2022 12:45-0400 Body height 175.26 cm Kesha Olexa Other [employer] Other 02-06-2022 12:45-0400 Body mass index (BMI) [Ratio] 31.01 kg/m2 Kesha Olexa Other [employer] Other 02-06-2022 12:45-0400 Body weight 95.26 kg Kesha Olexa Other [employer] Other 05-26-2021 13:15-0400 Body height 175.26 cm Harriet Ginty Other [employer] Other 05-26-2021 13:15-0400 Body mass index (BMI) [Ratio] 31.01 kg/m2 Harriet Ginty Other [employer] Other 05-26-2021 13:15-0400 Body temperature 98.3 [degF] Harriet Ginty Other [employer] Other 05-26-2021 13:15-0400 Body weight 95.26 kg Harriet Ginty Other [employer] Other 05-26-2021 13:15-0400 SaO2% (BldA) [Mass fraction] 96 % Harriet Ginty Other [employer] Other Encounters Encounter Date Encounter Type Care Provider Facility Start: 02-16-2025 End: 02-16-2025 ambulatory Jeremy Magallanes MD Work Phone: [facility] Work Phone: Start: 02-16-2025 End: 02-16-2025 Patient encounter procedure Jeremy Magallanes MD -[facility] Work Phone: Start: 01-21-2025 End: 01-21-2025 ambulatory [facility] Work Phone: Start: 01-21-2025 End: 01-21-2025 Patient encounter procedure [facility] Work Phone: Start: 12-23-2024 Non-patient / Non-visit [facility] Work Phone: Start: 12-22-2024 End: 12-22-2024 ambulatory [facility] Work Phone: Start: 12-22-2024 End: 12-22-2024 Patient encounter procedure [facility] Work Phone: Start: 11-23-2024 End: 11-23-2024 ambulatory Zacarias Pike MD Facility:[facility] [place] Start: 11-04-2024 End: 11-05-2024 ambulatory Ligia DIOP [facility] Start: 11-04-2024 End: 11-05-2024 Patient encounter procedure Ligia DIOP [facility] Start: 11-04-2024 End: 11-05-2024 ambulatory Ligia DIOP Facility:[facility] Start: 10-15-2024 End: 10-15-2024 ambulatory [facility] Work Phone: Start: 10-15-2024 End: 10-15-2024 Patient encounter procedure [facility] Work Phone: Start: 10-12-2024 Non-patient / Non-visit [facility] Work Phone: Start: 10-11-2024 Non-patient / Non-visit [facility] Work Phone: Start: 08-26-2024 Non-patient / Non-visit [facility] Work Phone: Start: 08-17-2024 End: 08-17-2024 ambulatory Zacarias Pike MD Facility:[facility] [place] Start: 07-23-2024 End: 07-23-2024 Patient encounter procedure [facility] Work Phone: Start: 07-21-2024 Non-patient / Non-visit [facility] Work Phone: Start: 07-20-2024 Non-patient / Non-visit [facility] Work Phone: Start: 06-17-2024 End: 06-17-2024 ambulatory MD Jeremy Magallanes Work Phone: [facility] Work Phone: Start: 06-17-2024 End: 06-17-2024 Patient encounter procedure MD Jeremy Magallanes Work Phone: [facility] Work Phone: Start: 06-12-2024 End: 06-12-2024 Orders Only Not In System Ref Prov [facility] Start: 06-10-2024 End: 06-10-2024 Orders Only [facility] Comment on above: Dysphagia, unspecifi ed type; Black stools Start: 06-03-2024 End: 06-03-2024 ambulatory MD Jeremy Magallanes Work Phone: [facility] Work Phone: Start: 06-03-2024 End: 06-03-2024 Departed Referred MD Jeremy Magallanes Work Phone: [facility] Start: 06-03-2024 Non-patient / Non-visit MD Angelina Magallanes Work Phone: [facility] Work Phone: Start: 05-27-2024 End: 05-27-2024 Office outpatient new 30 minutes Priyanka Rosalinda Vaz [employer] Work Phone: [facility] Comment on above: Dysphagia, unspecifi ed type (Primary Dx); Black stools; Gastroesophageal reflux disease, unspecified whether esophagitis present; Abnormal esophagram Start: 05-27-2024 End: 05-27-2024 ambulatory PRIYANKA Rosalinda VAZ [facility] Start: 05-18-2024 End: 05-18-2024 ambulatory Zacarias Pike MD Facility:[facility] Start: 05-14-2024 End: 05-21-2024 Telephone encounter [...] Facility: [facility] Start: 03-18-2024 End: 03-18-2024 ambulatory [facility] Work Phone: Start: 03-18-2024 End: 03-18-2024 Patient encounter procedure [facility] Work Phone: Start: 03-16-2024 End: 03-16-2024 ambulatory Zacarias Pike MD Facility: [facility] Start: 03-03-2024 End: 03-03-2024 ambulatory [facility] Work Phone: Start: 03-03-2024 End: 03-03-2024 Patient encounter procedure [facility] Work Phone: Start: 02-27-2024 Non-patient / Non-visit [facility] Work Phone: Start: 02-24-2024 End: 02-24-2024 ambulatory Zacarias Pike MD Facility:[facility] [place] Start: 02-03-2024 End: 02-03-2024 ambulatory Zacarias Pike MD Facility:[facility] [place] Start: 01-20-2024 End: 01-20-2024 ambulatory Zacarias Pike MD Facility:[facility] [place] Start: 12-17-2023 End: 12-17-2023 ambulatory [facility] Work Phone: Start: 12-17-2023 End: 12-17-2023 Patient encounter procedure [facility] Work Phone: Start: 12-05-2023 End: 12-05-2023 ambulatory [facility] Work Phone: Start: 12-05-2023 End: 12-05-2023 Patient encounter procedure [facility] Work Phone: Start: 10-23-2023 Non-patient / Non-visit [facility] Work Phone: Start: 10-08-2023 Non-patient / Non-visit [facility] Work Phone: Start: 10-07-2023 End: 10-07-2023 ambulatory BARBIE TAPIA Not Available Start: 09-18-2023 End: 09-18-2023 ambulatory Jeremy Magallanes Other [employer] Other Start: 09-18-2023 Telephone encounter Jeremy Magallanes [facility] Start: 09-13-2023 End: 09-13-2023 ambulatory Jeremy Magallanes Other [employer] Other Start: 09-13-2023 Office outpatient vi sit 15 minutes Jeremy Magallanes [facility] Start: 09-13-2023 End: 09-13-2023 Patient encounter procedure [facility] Start: 09-11-2023 Telephone encounter [place] Joel coleman [...] 09-10-2023 End: 09-10-2023 ambulatory Jeremy Magallanes Other [employer] Other Start: 09-10-2023 Telephone encounter Jeremy Magallanes [facility] Start: 09-06-2023 End: 09-06-2023 ambulatory Jeremy Magallanes Other [employer] Other Start: 09-06-2023 Telephone encounter Jeremy Magallanes [facility] Start: 09-02-2023 End: 09-02-2023 ambulatory JIN POCOS Not Available Start: 08-20-2023 End: 08-20-2023 ambulatory Jeremy Magallanes Other [employer] Other Start: 08-20-2023 Telephone encounter Jeremy Magallanes [facility] Start: 08-13-2023 End: 08-13-2023 ambulatory Jeremy Magallanes Other [employer] Other Start: 08-13-2023 Office outpatient vi sit 25 minutes Jeremy Magallanes [facility] Start: 08-13-2023 Telephone encounter Jeremy Magallanes [facility] Start: 08-06-2023 End: 08-06-2023 ambulatory Jeremy Magallanes Other [employer] Other Start: 08-06-2023 Telephone encounter Jeremy Magallanes [facility] Start: 07-29-2023 End: 07-29-2023 ambulatory BARBIE Tellez WILLIE Not Available Start: 07-22-2023 End: 07-22-2023 ambulatory Jeremy Magallanes Other [employer] Other Start: 07-22-2023 Telephone encounter Jeremy Magallanes [facility] Start: 07-19-2023 End: 07-19-2023 ambulatory Jeremy Magallanes Other [employer] Other Start: 07-19-2023 Telephone encounter Jeremy Magallanes [facility] Start: 07-18-2023 End: 07-18-2023 ambulatory Jeremy Magallanes Other [employer] Other Start: 07-18-2023 Telephone encounter Jeremy Magallanes [facility] Start: 07-02-2023 End: 07-02-2023 ambulatory Jeremy Magallanes Other [employer] Other Start: 07-02-2023 Office outpatient vi sit 15 minutes Jeremy Magallanes [facility] Start: 07-02-2023 Telephone encounter Jeremy Magallanes [facility] Start: 06-25-2023 End: 06-25-2023 ambulatory Jeremy Magallanes Other [employer] Other Start: 06-25-2023 Office outpatient vi sit 15 minutes Jeremy Magallanes [facility] Start: 06-21-2023 End: 06-21-2023 ambulatory Jeremy Magallanes Other [employer] Other Start: 06-21-2023 Encounter by edmond owen Jeremy Magallanes [facility] Start: 06-20-2023 End: 06-20-2023 ambulatory Jeremy Magallanes Other [employer] Other Start: 06-20-2023 Telephone encounter Jeremy Magallanes [facility] Start: 06-17-2023 End: 06-17-2023 ambulatory Jeremy Magallanes Other [employer] Other Start: 06-17-2023 Telephone encounter Jeremy Magallanes [facility] Start: 06-10-2023 End: 06-10-2023 ambulatory Jeremy Magallanes Other [employer] Other Start: 06-10-2023 Telephone encounter Jeremy Magallanes [facility] Start: 06-03-2023 End: 06-03-2023 ambulatory Jeremy Magallanes Other [employer] Other Start: 06-03-2023 Telephone encounter Jeremy Magallanes [facility] Start: 05-30-2023 End: 05-30-2023 Patient encounter procedure Barbie Tapia [facility] Start: 05-28-2023 End: 05-28-2023 ambulatory Jeremy Magallanes Other [employer] Other Start: 05-28-2023 Office outpatient vi sit 15 minutes Jeremy Magallanes [facility] Start: 2023 End: 2023 ambulatory Jeremy Magallanes Other [employer] Other Start: 2023 Office outpatient vi sit 15 minutes Jeremy Magallanes [facility] Start: 05-16-2023 End: 05-16-2023 ambulatory Jeremy Magallanes Other [employer] Other Start: 05-16-2023 Telephone encounter Jeremy Magallanes [facility] Start: 04-30-2023 End: 04-30-2023 ambulatory Jeremy Magallanes Other [employer] Other Start: 04-30-2023 Office outpatient vi sit 15 minutes Jeremy Magallanes [facility] Start: 04-26-2023 End: 04-26-2023 ambulatory Jeremy Magallanes Other [employer] Other Start: 04-26-2023 Telephone encounter Jeremy Magallanes [facility] Start: 04-23-2023 End: 04-23-2023 ambulatory Jeremy Magallanes Other [employer] Other Start: 04-23-2023 Telephone encounter Jeremy Magallanes [facility] Start: 03-25-2023 End: 03-25-2023 ambulatory Jeremy Magallanes Other [employer] Other Start: 03-25-2023 Telephone encounter Jeremy Magallanes [facility] Start: 03-06-2023 End: 03-06-2023 ambulatory Jeremy Magallanes Other [employer] Other Start: 03-06-2023 Telephone encounter Jeremy Magallanes [facility] Start: 02-20-2023 End: 02-20-2023 ambulatory Jeremy Magallanes Other [employer] Other Start: 02-20-2023 Office outpatient vi sit 25 minutes Jeremy Magallanes [facility] Start: 02-05-2023 End: 02-05-2023 ambulatory Jeremy Magallanes Other [employer] Other Start: 02-05-2023 Telephone encounter Jeremy Magallanes [facility] Start: 01-21-2023 End: 01-21-2023 ambulatory Jeremy Magallanes Other [employer] Other Start: 01-21-2023 Telephone encounter Jeremy Magallanes [employer] Start: 01-17-2023 End: 01-17-2023 ambulatory Jeremy Magallanes Other [employer] Other Start: 01-17-2023 Office outpatient vi sit 15 minutes Jeremy Magallanes [facility] Start: 12-24-2022 End: 12-24-2022 ambulatory Jeremy Magallanes Other [employer] Other Start: 12-24-2022 Telephone encounter Jeremy Magallanes [facility] Start: 12-03-2022 End: 12-03-2022 ambulatory Jeremy Magallanes Other [employer] Other Start: 12-03-2022 Telephone encounter Jeremy Magallanes [facility] Start: 11-27-2022 End: 11-27-2022 ambulatory Jeremy Magallanes Other [employer] Other Start: 11-27-2022 Telephone encounter Jeremy Magallanes [facility] Start: 11-26-2022 End: 11-26-2022 ambulatory Jeremy Magallanes Other [employer] Other Start: 11-26-2022 Telephone encounter Jeremy Magallanes [facility] Start: 11-24-2022 End: 11-25-[address] JEREMY MAGALLANES Facility: Start: 11-23-2022 End: 11-23-2022 ambulatory Jeremy Magallanes Other [employer] Other Start: 11-23-2022 Office outpatient vi sit 15 minutes Jeremy Magallanes [facility] Start: 11-05-2022 End: 11-05-2022 ambulatory Jeremy Magallanes Other [employer] Other Start: 11-05-2022 Telephone encounter Jeremy Magallanes [facility] Start: 10-03-2022 End: 10-03-2022 ambulatory Jeremy Magallanes Other [employer] Other Start: 10-03-2022 Telephone encounter Jeremy Magallanes [facility] Start: 09-04-2022 End: 09-04-2022 ambulatory Jeremy Magallanes Other [employer] Other Start: 09-04-2022 Office outpatient vi sit 25 minutes Jeremy Magallanes [facility] Start: 07-26-[address] JEREMY MAGALLANES Facil ity:[facility] Start: 07-19-2022 End: 07-20-[address] WILFREDO ENGLE Facility:[facility] Start: 06-07-2022 End: 06-07-[address] JEREMY MAGALLANES Facility:[facility] Start: 03-15-2022 ambulatory KESHA ESCOBEDO Facility:[facility] Start: 02-06-2022 End: 02-06-2022 ambulatory Kesha Olexa Other [employer] Other Start: 02-06-2022 Office outpatient vi sit 25 minutes Kesha Zachary[facility] Start: 02-02-2022 End: 02-03-2022 ambulatory KESHA OLEDANE Facility:[facility] Start: 12-28-2021 End: 12-28-[address] JEREMY MAGALLANES Facility:[facility] Start: 12-12-2021 End: 12-13-2021 ambulatory KESHA OLEXA [employer] Other Start: 12-12-2021 Office outpatient ne w 30 minutes Kesha Olexa [facility] [place] [facility] [place] Start: 05-26-2021 Office outpatient vi sit 15 minutes Harriet Ginty [facility] Procedures Date Procedure Procedure Detail Performing Clinician Start: 06-03-2024 Esophagogastroduodenoscopy Priyanka vázquez [employer] Work Phone: Start: 06-03-2024 Level i surg [...] Td Vaccines (3 - Td or Tdap) [facility] Start: 05-27-2025 Adult BMI Screening Adult BMI Screening [facility] Start: 05-27-2025 Tobacco Screening Tobacco Screening [facility] Start: 10-15-2024 Patient referral [facility] Work Phone: Start: 04-19-2024 Influenza vaccination Influenza Vaccine [facility] Start: 04-07-2024 End: 04-07-2024 Patient encounter procedure 04/07/2024 10:30 AM EDT Office Visit [facility] [address] [facility] [address] [place] [id number] Malathi Sanchez MD [address] [place] [address] Arrived [facility] Comment on above: Arrived Start: 03-18-2024 Patient referral [facility] Work Phone: Start: 10-07-2023 End: 10-07-2023 Patient encounter procedure 10/07/2023 8:00 AM EST Office Visit [facility] [address] [place] [address] Barbie Tapia DO [address] [place] [address] [facility] Start: 2010 Administration of varicella zoster vaccine Zoster (Shingles) Vaccine (1 of 2) [facility] Start: 1978 Adult BMI Follow Up Plan Adult BMI Follow Up Plan [facility] Start: 1972 Depression Screening Depression Screening [facility] Start: 1960 Tobacco Counseling Tobacco Counseling [facility] Comprehensive metabo lic 2000 panel - Serum or Plasma [facility] CT Chest WO contrast Firelan ds [facility] CT Neck W contrast IV Firela [facility] End: 05-27-2025 Esophagogastroduodenoscopy EGD GI Routine Dysphagia, unspecified type Black stools 1 Occurrences starting 05/27/2024 until 05/27/2025 [employer] Work Phone: Comment on above: 1 Occurrences starting 05/27/2024 until 05/27/2025 Patient referral [facility] Work Phone: XR Pelvis and Hip - bilateral Views [facility] Immunizations Immunization Date Immunization Notes Care Provider Fa [facility] 06-02-2018 Influenza, injectabl e, Madin Kyleigh Canine Kidney, preservative free, quadrivalent Argentina Clinton PT Work Phone: [facility] 06-02-2018 influenza virus vaccine, unspecified formulation Priyanka العليoll [employer] Work Phone: [facility] [employer] 05-17-2017 influenza virus vaccine, split virus (incl. purified surface antigen) Jeremy Magallanes Other [employer] Other 05-17-2017 influenza virus vaccine, unspecified formulation [facility] 05-16-2017 influenza, injectabl e, quadrivalent, preservative free Argentina Clinton PT Work Phone: [facility] 06-28-2016 influenza, injectabl e, quadrivalent, preservative free Argentina Clinton PT Work Phone: [facility] 06-28-2016 tetanus and diphther ia toxoids, adsorbed, preservative free, for adult use (5 Lf of tetanus toxoid and 2 Lf of diphtheria toxoid) Jeremy Magallanes Other [facility] 05-25-2015 influenza, seasonal, injectable, preservative free Argentina Clinton PT Work Phone: [facility] 05-25-2015 tetanus and diphther ia toxoids, adsorbed, preservative free, for adult use (5 Lf of tetanus toxoid and 2 Lf of diphtheria toxoid) Jeremy Magallanes Other [facility] 06-15-1999 pneumococcal conjuga te vaccine, 7 valent Argentina Clinton PT Work Phone: [facility] Payers Date Payer Category Payer Medicaid [id number] 2013 Medicare [id number] 1960 Unknown [id number] 2.16.84 0.1.716095.3.579.2.593 1960 Unknown [id number] 2.16.84 0.1.473311.3.579.2.593 1960 Unknown [id number] 2.16.84 0.1.200430.3.579.2.593 1960 Unknown [id number] 2.16.84 0.1.457215.3.579.2.593 1960 Unknown [id number] 2.16.84 0.1.011841.3.579.2.593 1960 Unknown [id number] 2.16.84 0.1.093638.3.579.2.593 1960 Unknown [id number] 2.16.84 0.1.285328.3.579.2.593 1960 Unknown [id number] 2.16.84 0.1.738975.3.579.2.593 1960 Unknown [id number] 2.16.84 0.1.214936.3.579.2.1259 1960 Unknown [id number] 2.16.84 0.1.187673.3.579.2.1259 1960 Unknown [id number] 2.16.84 0.1.429483.3.579.2.1259 1960 Unknown [id number] 2.16.84 0.1.646490.3.579.2.1259 1960 Unknown [id number] 2.16.840 .1.608651.3.579.2.1259 1960 Unknown [id number] 2.16.8 40.1.953786.3.579.2.1286 1960 Unknown [id number] 2.16.8 40.1.580155.3.579.2.727 1960 Unknown [id number] 2.16.8 40.1.988296.3.579.2.727 1960 Unknown [id number] 2.16. 840.1.257265.3.579.2.196 1960 Unknown [id number] 2.16. 840.1.053847.3.579.2.196 1960 Unknown [id number] 2.16. 840.1.387485.3.579.2.196 1960 Unknown [id number] 2.16. 840.1.849742.3.579.2.196 1960 Unknown [id number] 2.16. 840.1.488152.3.579.2.196 1960 Unknown [id number] 2.16. 840.1.398681.3.579.2.196 1960 Unknown [id number] 2.16. 840.1.742641.3.579.2.196 1960 Unknown [id number] 2.16. 840.1.646007.3.579.2.196 1959 Medicaid [id number] 2. 16.840.1.104959.19 1959 Medicare [id number] 2.1 6.840.1.120764.19 Self-pay [id number] Social History Date Type Detail Facility Start: 09-29-2020 End: 09-02-2023 Sex Assigned At [facility] Tobacco smoking status [facility] Start: 06-03-2019 End: 03-27-2023 Tobacco smoking status UTIS Smokes tobacco daily [facility] Work Phone: History of tobacco use Cigarette Smoker N [facility] Start: 09-29-2020 End: 03-27-2023 Cigarettes smoked current (pack per day) - Reported 0.5 [facility] Start: 06-03-2019 End: 03-27-2023 Tobacco use and exposure Smokeless tobacco non-user [facility] Start: 09-02-2023 End: 05-27-2024 Alcohol intake Lifetime non-drinker (finding) [facility] Start: 03-27-2023 Alcohol Comment Caffine- Soda [facility] Start: 1960 Sex Assigned At Male [facility] Start: 08-21-2023 Gender identity Identifies as male gender (finding) [facility] Start: 08-21-2023 Sexual orientation Heterosexual (finding) [facility] Start: 02-06-2017 End: 02-16-2025 Tobacco smoking status [facility] Ex-smoker (finding) [facility] Tobacco smoking stat [facility] Tobacco smoking consumption unknown [facility] Start: 1960 Sex assigned at Not on file [facility] Frequency of Alcohol Consumption Never [facility] Start: 06-01-2019 End: 01-21-2025 Sex Male (finding) [facility] Medical Equipment Procedure Code Equipment Code Equipment Origin al Text Equipment Identifier Dates Accu-Chek FastCl ix Lancet - Blood Sugar Diagnostic (Accu-Chek Ya Plus Test Strp) strip Start: 11-06-2024 Lancets (Accu-Ch ek Fastclix Lancet Drum) [facility] Start: 10-28-2024 Blood Sugar Diagnostic (Accu-Chek Ya Plus Test Strp) strip Start: 11-04-2024 End: 11-05-2024 Blood Sugar Diagnostic (Accu-Chek Ya Plus Test Strp) strip Start: 11-05-2024 End: 11-05-2024 Blood Sugar Diagnostic (Accu-Chek Ya Plus Test Strp) strip Start: 11-05-2024 End: 11-06-2024 Lancets (Accu-Ch ek Fastclix Lancet Drum) [facility] Start: 10-26-2024 End: 10-27-2024 Lancets (Accu-Ch ek [...] mellitus acute December 22, 2024 8: 19am [facility] Work Phone: 1(192) 858-810805-06-2025 Evaluation note* Diagnosis Onset Date Resolution Status Admit Date Bronchitis acute December 22, 2024 8:19am Bruising acute December 22, 2024 8:19am Enlarged prostate acute December 8:19am Screening PSA (prostate spec ific antigen) acute December 22, 2024 8: 19am Type II diabetes mellitus acute December 22, 2024 8:19am Bronchitis acute January 21, 2025 9:26am [facility] Work Phone: 1(312) 576-278403-19-2025 NoteProgress Note-Nurse LVM to talk about A1C level, he will be getting a one year card but will have to talk with his PCP about getting that number down.[facility] 10-15-2024 Evaluation note* Diagnosis Onset Date Resolution [...] diabetes mellitus acute December 22, 2024 8:19am [facility] Work Phone: 1(116) 140-219412-05-2024 Evaluation note* Diagnosis Onset Date Resolution Status Admit Date GERD (gastroesophageal reflu x disease) acute July 23 10:18am Lymphadenopathy acute July 23, 2024 10:18am Mass of left submandibular region acute July 23 10:18am Bladder diverticulum acute 2024 8:52am Enlarged prostate acute 2024 8:52am Lymphadenopathy acute October 15, 2024 8:52am [facility] Work Phone: 1(471) 701-827310-25-2024 Miscellaneous Notes* Telephone Encounter - Evelyn Mendoza [...] Address verified with patient. [facility] [id number] Telephone encounter Note* Telephone Encounter - Evelyn [...] risk of esophageal cancer. Thanks, Dr. Kc [facility]10-25-2024 Telephone encounter Note* Telephone Encounter - Evelyn Mendoza CMA - 06/12/2024 12:00 PM EDT Spoke with patient regarding pathology results. Patient verbally understood with no further questions. 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 Address verified with patient. [facility]10-09-2024 History of Present illness Narrative* Priyanka Vaz, [employer] - 05/27/2024 2:30 PM EDT Images from [...] gallbladder polyp. He saw Dr. Martinez in [place] for this. He also reports a positive [...] confusion. 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 General Surgery [place] This note was created with the assistance of a speech recognition program. While intending to generate a timely document that accurately reflects the content of the visit, no guarantee can be provided that every grammatical or spelling mistake has been or will be identified or corrected. Thank you for your understanding. CHARLEE Biggs 05/27/24 1555 documented in this encounter[facility] Telephone encounter Note* Telephone Encounter - Vivian Morley - 05/15/2024 11:35 AM EDT Images from the original note were not included. Consult from Dr. Jeermy Magallanes (Internal Medicine) [facility] Referral received from PCP for [...] completed: 04/08/2024 Barium Swallow 03/21/2024 CT Chest [facility]09-27-2024 Miscellaneous Notes* Telephone Encounter - Vivian Morley - 05/15/2024 11:35 AM EDT Images from the original note were not included. Consult from Dr. Jeremy Magallanes (Internal Medicine) [facility] Referral received from PCP for [...] not included. Referral was sent from [facility] for new consult with Dr Meraz Please see below and advise [facility] Telephone encounter Note * Telephone Encounter - Keily Martines - 05/14/2024 1:07 PM EDT Images from the original note were not included. Referral was sent from [facility] for new consult with Dr Meraz Please see below and advise [facility]09-16-2024 Telephone encounter Note* Telephone Encounter - Cynthia Sanchez - 05/04/2024 9:45 AM EDT Left message on sister's voice mail to contact Dr Magallanes's office for referral. [facility] [id number] Miscellaneous Notes* Telephone Encounter - Cynthia Sanchez [...] referral sent to Dr Ameya Meraz at [facility]. He is a gastrologist. The fax number is [phone] . Pt's sister would like a call back at [phone]. documented in this encounterCapital Region Medical [id number] Telephone encounter Note* Telephone Encounter - Malathi Sanchez MD - 05/04/2024 9:27 AM EDT That needs to be done by Dr Magallanes's office [facility] [id number] Telephone encounter Note* Telephone Encounter - Cynthia Sanchez - 05/04/2024 9:15 AM EDT Pt's sister called in. She said her brother would like a referral sent to Dr Ameya Meraz at [facility]. He is a gastrologist. The fax number is [phone] . Pt's sister would like a call back at [phone]. [facility] [id number] History of Present illness Narrative* Malathi Sanchez MD - 04/07/2024 10:30 AM EDT Subjective Patient ID: Alex Craig is a 63 y.o. male who presents for Neck Mass ([facility] @ [facility] 02/26>[facility]) Pt reports he is [...] resolved. F/U if recurs documented in this [facility]02-14-2024 Telephone encounter Note* Telephone Encounter - Maris Tavera - 10/02/2023 1:35 PM EST No attempts to hear back; closing referral. [facility] [id number] Miscellaneous Notes* Telephone Encounter - Maris Tavera - 10/02/2023 1:35 PM EST No attempts to hear back; closing referral. documented in this [facility]01-26-2024 Evaluation note* Encounter Date Diagnosis Assessment Notes Treatment Notes Treatment Clinical Notes Aug, Chronic obstructive pulmonary disease, unspecified (ICD-10 - J44.9) Finish antibiotics and prednisone as prescribed. Denies pulmonary referral at this time. Hasn't smoked since 09/08 and declines chantix or patches. Aug, Current smoker (ICD-10 - F17.200) [employer] Other 01-23-2024 Evaluation note* Encounter Date Diagnosis Assessment Notes Treatment Notes Treatment Clinical Notes Aug, Lumbar radicular pain (ICD-10 - M54.16) [employer] Other 01-19-2024 Evaluation note* Encounter Date Diagnosis Assessment Notes Treatment Notes Treatment Clinical Notes Aug, Lumbar radicular pain (ICD-10 - M54.16) [employer] Other 12-26-2023 Evaluation note* Encounter Date Diagnosis Assessment Notes Treatment Notes Treatment Clinical Notes Jul, Type 2 diabetes mellitus with hyperglycemia, without long-term current use of insulin (ICD-10 - E11.65) [employer] Other 12-26-2023 Evaluation note* Encounter Date Diagnosis [...] T3s after shoulder pain has improved post-operatively. [employer] Other 12-04-2023 Evaluation note* Encounter Date Diagnosis Assessment Notes Treatment Notes Treatment Clinical Notes Jul, Type 2 diabetes mellitus with hyperglycemia, without long-term current use of insulin (ICD-10 - E11.65) [employer] Other 12-01-2023 Evaluation note* Encounter Date Diagnosis Assessment Notes Treatment Notes Treatment Clinical Notes Jul, Type 2 diabetes mellitus with hyperglycemia, without long-term current use of insulin (ICD-10 - E11.65) [employer] Other 11-30-2023 Evaluation note* Encounter Date Diagnosis Assessment Notes Treatment Notes Treatment Clinical Notes Jun, Labral tear of shoulder, right, subsequent encounter (ICD-10 - S43.431D) [employer] Other 11-14-2023 Evaluation note* Encounter Date Diagnosis [...] pain (ICD-10 - R07.9) r/o cardiac cause [employer] Other 11-07-2023 Evaluation note* Encounter Date Diagnosis [...] to decrease dose and possibly discontinue medication. [employer] Other 11-02-2023 Evaluation note* Encounter Date Diagnosis Assessment Notes Treatment Notes Treatment Clinical Notes Jun, Acute pain of right shoulder (ICD-10 - M25.511) [employer] Other 10-30-2023 Evaluation note* Encounter Date Diagnosis Assessment Notes Treatment Notes Treatment Clinical Notes May, Acute pain of right shoulder (ICD-10 - M25.511) [employer] Other 10-23-2023 Evaluation note* Encounter Date Diagnosis Assessment Notes Treatment Notes Treatment Clinical Notes May, Acute pain of right shoulder (ICD-10 - M25.511) [employer] Other 10-16-2023 Evaluation note* Encounter Date Diagnosis Assessment Notes Treatment Notes Treatment Clinical Notes May, Acute pain of right shoulder (ICD-10 - M25.511) [employer] Other 10-10-2023 Evaluation note* Encounter Date Diagnosis Assessment Notes Treatment Notes Treatment Clinical Notes May, Acute pain of right shoulder (ICD-10 - M25.511) MRI and surgery planning pending. Pt understands this is a controlled substance and to call in 1 week w update on treatment plan. May, Bronchitis (ICD-10 - J40) Finish antibiotic, rest, hydrate Steroids for wheezing. [employer] Other 10-04-2023 Evaluation note* Encounter Date Diagnosis Assessment Notes Treatment Notes Treatment Clinical Notes May, Acute pain of right shoulder (ICD-10 - M25.511) Reviewed [place]AR[place] and discussed short term plan of increase in pain medication. He is due for a refill of the T3s presently. Stop them, replace w norco. Pt understands weekly prescription and will need to d/c after anticipated surgery. [employer] Other 09-12-2023 Evaluation note* Encounter Date Diagnosis [...] office and the ER visit on 04/26 [employer] Other 07-05-2023 Evaluation note* Encounter Date Diagnosis [...] and will need less prn pain med. [employer] Other 06-01-2023 Evaluation note* Encounter Date Diagnosis [...] left shoulder (ICD-10 - M25.512) as above. [employer] Other 04-17-2023 Evaluation note* Encounter Date Diagnosis Assessment Notes Treatment Notes Treatment Clinical Notes Nov, Bronchitis (ICD-10 - J40) [employer] Other 04-11-2023 Evaluation note* Encounter Date Diagnosis Assessment Notes Treatment Notes Treatment Clinical Notes Nov, Disc degeneration, lumbar (ICD-10 - M51.36) Nov, Lumbar radicular pain (ICD-10 - M54.16) [employer] Other 04-07-2023 Evaluation note* Encounter Date Diagnosis [...] quit smoking. Pt verbalizes understanding and agreement. [employer] Other 02-15-2023 Evaluation note* Encounter Date Diagnosis Assessment Notes Treatment Notes Treatment Clinical Notes Sep, Lumbar radicular pain (ICD-10 - M54.16) [employer] Other 01-17-2023 Evaluation note* Encounter Date Diagnosis [...] is outlined on the test result page. [employer] Other 10-20-2022 NoteIndication: Calculus in kidney. Comparison: [...] by: JOHN PINTO Date: 2022-06-07 20:07[facility]06-21-2022 Evaluation note* Encounter Date Diagnosis Assessment [...] of infection, hardware pullout, cuff repair failure, intermodal customer service pain and stiffness are well known problems [...] of repair, infection and wound healing delays. [employer] Other 04-26-2022 NotePROCEDURE: XR SHOULDER LT 2V or > COMPARISON: None. HISTORY: Pain of left shoulder joint FINDINGS: BONES:No acute fracture or dislocation. 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 No visible soft tissue swelling. EFFUSION:None visible. OTHER: Negative. IMPRESSION: Mild osteoarthritis Electronically authenticated by: BARBIE MEMBRENO Date: 2021-12-12 15:25[facility] [id number] Evaluation note* Encounter Date Diagnosis Assessment Notes [...] pain of left shoulder (ICD-10 - M25.512) [employer] Other 10-08-2021 Evaluation note* Encounter Date Diagnosis [...] as needed for cough. Advised patient that Alva contains antihistamine and cough suppressant and to be cautious using other OTC cold medications. Patient to follow up with PCP if symptoms do not improve. Immediate eval if SOB, difficulty breathing, chest pain, dizziness, or other concerning symptoms. Patient verbalizes understanding and is agreeable to treatment plan [facility] [employer] Other Evaluation + Plan note No data available for this section [facility] HospitalEvaluation noteNo InformationNortSt. Clair Hospital [employer] Other Evaluation note* Diagnosis Onset Date Resolution Status Arthralgia acute Lumbar pain acute Type II diabetes mellitus ac [facility] Work Phone: Evaluation note* Diagnosis Onset Date Resolution Status Arthralgia acute Lumbar pain acute Type II diabetes mellitus ac [place] Bilateral hip pain acute [facility] Work Phone: Evaluation note* Diagnosis Onset Date Resolution Status Arthralgia acute Lumbar pain acute Type II diabetes mellitus ac [place] Bilateral hip pain acute Lumbar pain [facility] Work Phone: Evaluation note* Diagnosis Onset Date Resolution Status Submandibular abscess acute Chronic obstructive pulmonary disease, unspecified acute Esophageal abnormality acute Mass of left submandibular region [facility] Work Phone: Evaluation note* Diagnosis Onset Date Resolution Status Chronic obstructive pulmonary disease, unspecified acute Esophageal abnormality acute Mass of left submandibular region [facility] Work Phone: Evaluation note* Diagnosis Onset Date Resolution Status 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 Hiatal hernia [facility] Work Phone: Evaluation note* Diagnosis Esophageal dysphagia- Primary Dysphagia, pharyngoesophageal phase Neck mass Swelling, mass, or lump in head and neck documented in this encounter [facility] HealthcareEvaluation note* Diagnosis Dysphagia, unspecified type- Primary Black stools Nonspecific abnormal finding in stool contents Gastroesophageal reflux disease, unspecified whether esophagitis present Abnormal esophagram documented in this encounter [facility] SystemEvaluation note* Diagnosis Dysphagia, unspecified type Black stools Nonspecific abnormal finding in stool contents documented in this encounter [facility] SystemHistory general Narrative - Reported* Type Description Date Medical History Asthma Medical History skin cancer-lip Surgical History Left lung biopsy 1977 Surgical History L4 and L5 disc fusion 1984 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 [employer] Other Hospital Discharge instructions No data available for this section [facility] HospitalHospital Discharge instructionsAmbulatory Orders* Referral to ENT Time Frame: 03/18/24, Location: None [facility] Work Phone: Hospital Discharge instructionsAmbulatory Orders* Referral to Urology Time Frame: 10/15/24, Location: None [facility] Work Phone: InstructionsNot on filedocumented in this encounter [facility] SystemInstructionsNot on filedocumented in this encounter [facility] SystemInstructionsNot on filedocumented in this encounter [facility] SystemProgress note No data available for this section [facility] HospitalReason for referral (narrative)No reason for referral information availableCherrington Hospital Work Phone: Summary Purpose Family History [...] [facility] omar Referring Provider First Name Jeremy Referring Provider Last Name Sona Referring Provider Specialty Family [facility] Referred Organization [facility] Referred Provider Sai Martinez Referred Address ,[place], [place],[address] Referred Provider Specialty Surgery Referral Priority Routine General Notes Es Camilo 11:38:02 AM >received today, attachments made, notes locked, referral faxed Reason 01/28/23 Access Or tho - B shoulder pain L>R - hopes for injections. Diagnosis 1 Pain in right should er (M25.511) Referral Organization [facility] Referring Provider First Name Jeremy Referring Provider Last Name Sona Referring Provider [facility] Referred Organization [facility] Referred Provider Barbie Tapia Referred Address ,[place], [place],[address] Referred Provider Specialty Orthopaedic Surgery Referral Priority [...] 02/12/2023 11:00:18 AM >faxed third attempt letter sE Camilo 02/13/2023 12:11:31 PM >received fax with appt date, faxed first letter for notes Es Camilo 02/15/2023 04:23:26 PM >notes received, and sent for review. closing out referral Reason Access Orth[facility] - B shoulder pain L>R - hopes for injections. Diagnosis 1 Pain in right should er (M25.511) Referral Organization [facility] Referring Provider First Name Jeremy Referring Provider Last Name Sona Referring Provider [facility] Referred Organization [facility] Referred Provider Barbie Tapia Referred Address ,[place], [place] Referred Provider Specialty Orthopaedic Surgery Referral Priority [...] call back reinier. 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 02/26>[facility] Reason Comments postive cologuard [...] and content) DATE CREATED AUTHOR 12/04/2022 [facility] DATE CREATED AUTHOR AUTHOR'S ORGANIZ ATION 04/08/2024 [facility] EPIC DATE CREATED AUTHOR AUTHOR'S ORGANIZ ATION 05/23/2024 [facility] DATE CREATED AUTHOR AUTHOR'S ORGANIZ ATION 05/29/2024 [facility] DATE CREATED AUTHOR AUTHOR'S ORGANIZ ATION 06/12/2024 [facility] DATE CREATED AUTHOR AUTHOR'S ORGANIZ ATION 11/06/2024 Sargent Gagan [facility] DATE CREATED AUTHOR AUTHOR'S ORGANIZ ATION 11/11/2024 Sargent Gagan [facility] DATE CREATED AUTHOR AUTHOR'S ORGANIZ ATION 11/29/2024 [facility] Patient Care team informatio [...] Provider Active Start : October 23, 2023 Civil Engineering Specialist Relationship Specialty Start Date End Date Jeremy Magallanes MD [address] [facility] [phone] PCP - General Family Medicine 01/23/23 Team Status: Inactive Member Role Status Dates Jeremy Magallanes MD Attending Provider Active St art: September 13, 2023 End: September 13, 2023 Civil Engineering Specialist Relationship Specialty Start Date End Date Jeremy Magalalnes MD [address] [facility] [phone] Referring Family Medicine 05/12/24 Civil Engineering Specialist Relationship Specialty Start Date End Date Jeremy Magallanes MD [address] [facility] [phone] PCP - General Family Medicine 01/23/23 Civil Engineering Specialist Relationship Specialty Start Date End Date Jeremy Magallanes MD [address] [facility] [phone] PCP - General Family Medicine 01/23/23 Civil Engineering Specialist Relationship Specialty [place] [address] [place] [phone] PCP - General Family Medicine 01/23/23 Civil Engineering Specialist Relationship Specialty Start Date End Date Jeremy Magallanes MD [address] [place] [address] PCP - General Family Medicine 06/03/19 Civil Engineering Specialist Relationship Specialty Start Date End Date Jeremy Magallanes MD [address] [place], [place] [phone] PCP - General Family Medicine 06/03/19 Civil Engineering Specialist Relationship Specialty Start Date End Date Jeremy Magallanes MD [address] [place], [place] [phone] PCP - General Family Medicine 06/03/19 Civil Engineering Specialist Relationship Specialty Start Date End Date Jeremy Magallanes MD [address] [place], [place] [phone] PCP - General Family Medicine 06/03/19 Team [...] or prosecute any alcohol or drug abuse patient.[facility] FOR RECORDS PERTAINING TO PATIENTS WHO [...] BE BASED ON THE PRIMARY CLINICAL RECORDS. [facility] [employer] [facility]. provides no warranty or guarantee of the accuracy or completeness of information in this document.
[2025-04-05 09:10] VITALS: BP 136/84; PULSE 102; TEMP 36.3; O2SAT 96
[2025-04-05] MEDS: LIDOCAINE HCL 2% 400 MG/20 ML MDV 5 ML INJ (10:12)
[2025-04-05] MEDS: DEXAMETHASONE SOD PHOS 10 MG/ML VIAL INJ (10:12)
[2025-04-05] MEDS: 0.9 % SODIUM CHLORIDE 10 ML SYRINGE - SALINE FLUSH INJ (10:12)
[2025-04-05] MEDS: BUPIVACAINE HCL 0.25% PF 25 MG/10 ML VIAL INJ (10:12)
[2025-04-05 10:16] VITALS: BP 123/99; BP 131/86; PULSE 96; PULSE 99; O2SAT 95; O2SAT 96
--- NOTE | 2025-04-05 10:17 | P.ON_ITS ---
Date of procedure: 04/05/25 Pre-op diagnosis: M54.14 Post-op diagnosis: same as pre-op Procedure: Procedure: Right T10-11, 11-12 transforaminal epidural steroid injection Medications: Bupivacaine 0.25% 1cc, lidocaine 2% 1cc, dexamethasone 10mg The patient was seen and examined in the preoperative holding area.? Informed consent was obtained and placed on the chart.? Patient was brought to the medical procedure unit and placed in the prone position where a timeout was completed verifying the correct patient, procedure site, position, and planned special equipment using sterile aseptic technique.? Under direct fluoroscopic visualization a 25-gauge Quincke tipped spinal needle was advanced to the designated neural foramen where contrast dye was injected to show adequate spread.? The needle was inserted at level right T10-11. There was no evidence of vascular or adverse uptake.? Epidural spread was appreciated.? The above- mentioned injectate was then placed in a 1.5 mL aliquot preceded by negative aspiration.? The needle was removed. The needle was inserted and the procedure repeated at level right T11-12.? The surgery site was covered.? Patient was taken to the postprocedural recovery area and monitored for an appropriate length of time before found suitable for discharge in the accompaniment of a responsible adult. Anesthesia: Local Surgeon: Zacarias Pike Pathology: none sent Condition: stable Disposition: no change
== END 2025-04-05 10:18 | disposition home or self-care (01) ==
LOC: SURGOUT 08:57
PROVIDERS: PCP Family Medicine; Visit Provider Anesthesiology
DX: M54.12 Radiculopathy, cervical region (principal); E11.8 Type 2 diabetes mellitus with unspecified complications
CPT/HCPCS: 36415; 64479; 64480; 82948; J0665; J1100

== ENCOUNTER 2025-04-14 07:39 | Outpatient (OUT) | payer MEDICARE, SELFPAY ==
--- OUTSIDE RECORDS SUMMARY | 2025-04-14 07:43 | XMS_ITS | Encounter Summary ---
Author Organization [facility] Address [address] [place] [address] Care Team Providers Care Senior Javascript Engineer Name Role Phone Hannah Gallo MD Primary Care Provider [phone] Reason for Visit * Reason Onset Date Comments Med Refill 08/26/2023 Encounter Details Date Type Department Care Team (Late st Contact Info) Description 08/26/2023 Refill [facility] [address] [facility] [place] [place] [phone] Andre Jesus, [address] [place] [address] Nontraumatic complete tear of right rotator cuff [...] cuff documented in this encounter Care Teams Senior Javascript Engineer Relationship Specialty Start Date End Date Hannah Gallo MD PCP - General Family Medicine 01/23/23 documented as of this encounter
--- OUTSIDE RECORDS SUMMARY | 2025-04-14 07:43 | XMS_ITS | Encounter Summary ---
Author Organization [facility] Address [address] [facility] [place] [address] Care Team Providers Care Pulpwood Dealer Name Role Phone Hannah Gallo MD Primary Care Provider [phone] Encounter Details Date Type Department Care Team (Late st Contact Info) Description 10/19/2024 Orders Only [facility] [address] [facility] [address] [place] [address] Hannah Gallo MD [address] [facility] [place] [address] Social History Tobacco Use Types [...] on filedocumented in this encounter Care Teams Pulpwood Dealer Relationship Specialty Start Date End Date Hannah Gallo MD PCP - General Family Medicine 01/23/23 documented as of this encounter
--- OUTSIDE RECORDS SUMMARY | 2025-04-14 07:43 | XMS_ITS | Encounter Summary ---
Author Organization [facility] Address [address] [facility] [place] [address] Care Team Providers Care School Library Media Specialist Name Role Phone Hannah Gallo MD Primary Care Provider [phone] Encounter Details Date Type Department Care Team (Late st Contact Info) Description 07/29/2023 Abstract [facility] [address] [facility] [address] [place] [phone] Andre Jesus, DO [address] [facility] [place] [address] Social History Tobacco Use Types Packs/Day Years [...] on filedocumented in this encounter Care Teams School Library Media Specialist Relationship Specialty Start Date End Date Hannah Gallo MD PCP - General Family Medicine 01/23/23 documented as of this encounter
--- OUTSIDE RECORDS SUMMARY | 2025-04-14 07:43 | XMS_ITS | Encounter Summary ---
Author Organization [facility] Address [address] [place] [address] Care Team Providers Care Nuclear Equipment Research Engineer Name Role Phone Hannah Gallo MD Primary Care Provider [phone] Encounter Details Date Type Department Care Team (Late st Contact Info) Description 05/30/2023 Clinisync Result Encounter [facility] External Department Unsolicited Andre Jesus, DO [address] [place], [place] [phone] Social History Tobacco Use Types Packs/Day Years [...] on filedocumented in this encounter Care Teams Nuclear Equipment Research Engineer Relationship Specialty Start Date End Date Hannah Gallo MD PCP - General Family Medicine 01/23/23 documented as of this encounter
--- OUTSIDE RECORDS SUMMARY | 2025-04-14 07:43 | XMS_ITS | Encounter Summary ---
Author Organization [facility] Address [address] [place] [address] Care Team Providers Care Dialysis Rn Name Role Phone Hannah Gallo MD Primary Care Provider [phone] Encounter Details Date Type Department Care Team (Late st Contact Info) Description 09/05/2023 Abstract [facility] [address] [facility] [place] [phone] Andre Jesus DO [address] [place] [address] Social History Tobacco Use Types Packs/Day Years [...] on filedocumented in this encounter Care Teams Dialysis Rn Relationship Specialty Start Date End Date Hannah Gallo MD PCP - General Family Medicine 01/23/23 documented as of this encounter
--- OUTSIDE RECORDS SUMMARY | 2025-04-14 07:43 | XMS_ITS | Encounter Summary ---
Author Organization [facility] Address [address] [place] [address] Care Team Providers Care Kennel Keeper Name Role Phone Hannah Gallo MD Primary Care Provider [phone] Encounter Details Date Type Department Care Team (Late st Contact Info) Description 04/08/2024 Clinisync Result Encounter [facility] External Department Unsolicited Malathi Jimenez MD [address] [facility] [address] [place] [address] Social History Tobacco Use Types Packs/Day Years [...] EDT Narrative 04/08/2024 11:00 AM EDT The [address] [address] Fluoroscopy Report Signed Patient: NICHOLAS ZIEGLER MR#: [id number] : 1960 Acct:[id number] Age/Sex: 63 / M ADM Date: 04/08/24 Loc: [place] Attending Dr: Malathi Jimenez M.D. Ordering Physician: Malathi Jimenez M.D. Date of Service: 04/08/24 Procedure(s): FL cineradiography Accession Number(s): [id number] cc: Hannah Gallo M.D.; Malathi Jimenez M.D. [facility] [address] [address] Patient Name: NICHOLAS ZIEGLER MRN: [id number] date: 1960 Sex: M Assigned Patient Location: [place] Current Patient Location: [place] Accession/Order Number: [id number] Exam Date: 04/08/2024 08:45 Report Date: 04/08/2024 10:57 At the request of: MALATHI JIEMNEZ Procedure: FL cineradiography EXAMINATION: FL barium swallow, [...] Signed By: 04/08/24 1100 DD/ 1057 TD/TT: Voice Writing Reporter: Procedure Note Radiology, Radiologist, MD - 04/08/2024 [place] [address] Fluoroscopy Report Signed Patient: NICHOLAS ZIEGLER JMR#: [id number] : 1960Acct:[id number] Age/Sex: 63 / MADM Date: 04/08/24 Loc: [place] Attending Dr: Malathi Jimenez M.D. Ordering Physician: Malathi Jimenez M.D. Date of Service: 04/08/24 Procedure(s): FL cineradiography Accession Number(s): [id number] cc: Hannah Gallo M.D.; Malathi Jimenez M.D. The [place] [address] Patient Name: NICHOLAS ZIEGLER MRN: [id number] date: 1960 Sex: M Assigned Patient Location: [place] Current Patient Location: [place] Accession/Order Number: [id number] Exam Date: 04/08/2024 08:45 Report Date: 04/08/2024 [...] the distal esophagus. Electronically authenticated by: DAKOTA LNIN Date: 04/08/2024 10:57 Dictated By: Dakota Linn M.D. Signed By:04/08/24 1100 DD/ 1057 TD/TT: Voice Writing Reporter: us Malathi Jimenez MD [facility] Final Resul t documented in this encounter Visit Diagnoses Not on filedocumented in this encounter Care Teams Kennel Keeper Relationship Specialty Start Date End Date Hannah Gallo MD PCP - General Family Medicine 01/23/23 documented as of this encounter
--- OUTSIDE RECORDS SUMMARY | 2025-04-14 07:43 | XMS_ITS | Encounter Summary ---
Author Organization [facility] Address [address] [place] [address] Care Team Providers Care Outbound Sales Specialist Name Role Phone Hannah Gallo MD Primary Care Provider [phone] Encounter Details Date Type Department Care Team (Late st Contact Info) Description 03/06/2023 Abstract [facility] [address] [place] [phone] Andre Jesus DO [address] [place] [address] Social History Tobacco Use Types Packs/Day Years [...] on filedocumented in this encounter Care Teams Outbound Sales Specialist Relationship Specialty Start Date End Date Hannah Gallo MD PCP - General Family Medicine 01/23/23 documented as of this encounter
--- OUTSIDE RECORDS SUMMARY | 2025-04-14 07:43 | XMS_ITS | Clinical Summary ---
Author Organization [facility] Address [address] [place] [address] Care Team Providers Care Appetizer Packer Name Role Phone Hannah Gallo MD Unavailable [phone] Social History Tobacco Use Types Packs/Day Years Used Date Smoking Tobacco: Never Assessed Sex and Gender Information Value Date Recorded Sex Assigned at Not on file Legal Sex Male 8:58 AM EST Gender Identity Not on file Sexual Orientation Not on file Plan of Treatment Not on [place] [address] MEDICARE Care Teams Appetizer Packer Relationship Specialty Start Date End Date Hannah Gallo MD [address] [place] [address] Referring Family Medicine 05/12/24
--- OUTSIDE RECORDS SUMMARY | 2025-04-14 07:43 | XMS_ITS | Clinical Summary ---
Author Organization [facility] Address [address] [place] [address] Care Team Providers Care Director Market Research Name Role Phone Unavailable Primary Care Provider Unavailabl e Source Comments The following information is NOT included in Care Everywhere downloads:Psychiatric notes, ECG results, Cardiac Rehab notes, Pulmonary Function notes, data from mediafeedias (includes but not limited toPregnancy data,audiograms, eye exams, pre-surgical evaluation notes, well-child exam data).[facility] Family History Medical History Relation Name Comments Neurologic Disease Other no Relation Name Status Comments Other Social History Tobacco Use Types Packs/Day Years Used Date Smoking Tobacco: Every Day Cigarettes Alcohol Use Standard Drinks/Week Comments No 0 (1 standard drink = 0.6 oz pur e alcohol) Substance Use Types Use/Week Comments No Sex and Gender Information Value Date Recorded Sex Assigned at Not on file Legal Sex Male 9:49 AM EST Gender Identity Not on file Sexual Orientation Not on file Last Filed Vital Signs Vital Sign Reading Time Taken Comments Blood Pressure 146/78 11/14/2010 10:45 AM EDT Pulse 70 11/14/2010 10:45 AM EDT Temperature 36.6 C (97.9 F) 11/14/2010 10:45 AM EDT Respiratory Rate - - Oxygen Saturation - - Inhaled Oxygen Concentration - - Weight 103.3 kg (227 lb 12.8 oz) 2010 10:45 AM EDT Height - - Body Mass Index - - Plan of Treatment Health Maintenance Due Date Last Done Comments Colonoscopy 1960 HIV Test 1975 Hepatitis C Antibody 1978 Tdap Booster 1978 Hepatitis A (HAV) Vaccine (optional start 19+ years) 1 Tetanus (Td or Tdap) Booster 1979 Cholesterol 1995 CRC Screening 2005 Cologuard (Stool DNA) 2005 FIT 2005 Pneumococcal Vaccine(s) (50+ yrs) (1 of 1 - PCV) 05/22 Shingles (RZV) Vaccine (1 of 2) 2010 Hepatitis B (HBV) Vaccine (optional start 60+ years) 1 COVID-19 Vaccine (1 - 2023-25 season) 2024 Influenza Vaccine (#1) 2025 RSV vaccine (adult) (1 - 1-dose 75+ series) 2035 Insurance [employer] - HMO/PPO/POS
--- OUTSIDE RECORDS SUMMARY | 2025-04-14 07:43 | XMS_ITS | Clinical Summary ---
Author Organization [facility] tem Address [id number] [address] [place] [address] Care Team Providers Care Gas Regulator Repairer Helper Name Role Phone Hannah Gallo MD Primary Care Provider [phone] Allergies Active Allergy Reactions Criticality Noted Date [...] file Insurance MEDICARE MEDICAID [place] Care Teams Gas Regulator Repairer Helper Relationship Specialty Start Date End Date Hannah Gallo MD [address] [place] [address] PCP - General Family Medicine 06/03/19
--- OUTSIDE RECORDS SUMMARY | 2025-04-14 07:43 | XMS_ITS | Clinical Summary ---
Author Organization [facility] Address [address] [place] [address] Care Team Providers Care Duct Layer Helper Name Role Phone Hannah Gallo MD Primary Care Provider [phone] Allergies Active Allergy Reactions Criticality Noted Date [...] file Insurance MEDICARE MEDICAID [place] Care Teams Duct Layer Helper Relationship Specialty Start Date End Date Hannah Gallo MD PCP - General Family Medicine 01/23/23
--- OUTSIDE RECORDS SUMMARY | 2025-04-14 07:45 | XMS_ITS | CCD ---
Author Organization [facility] Care Team Providers Care Industrial Maintenance Instructor Name Role Phone Ronnie Kesha Unavailable Chepe Harriet Unavailable Jeremy Magallanes Unavailable SONA, DR JEREMY Jovel Admitting Unavailable MAGALLANES, DR JEREMY Jovel Attending Unavailable MAGALLANES, DR JEREMY Jovel Primary Care Unavailable MAGALLANES, DR JEREMY Jovel Consulting Unavailable TAVERASRUBI Consulting Unavailable OLEXA, KESHA Admitting Unavailable OLEXA, KESHA Attending Unavailable MAGALLANES, DR JEREMY Jovel Primary Care Unavailable DENVER, DR BARBIE Goldberg Consulting Unavailable OLEXA, KESHA [...] Consulting Unavailable JEREMY MAGALLANES Primary Care Physician [phone] Jeremy Magallanes MD Primary Care Provider WILLIE, BARBIE Tellez Attending Unavailable POCOS, BARBIE Tellez Referring Unavailable POCOS, BARBIE Tellez Attending Unavailable MALATHI SANCHEZ Attending Unavailable JEREMY MAGALLANES Referring Unavailable POCDORON, JIN Attending Unavailable Jeremy Magallanes MD Unavailable PRIYANKA VAZ Attending Unavailable JEREMY MGAALLANES Referring Unavailable JEREMY MAGALLANES Primary Care Unavailable MD Jeremy Magallanes Primary Care Provider DO Bill Henry Attending Provider Jeremy Magallanes Primary Care Unavailable Bill Henry Attending Unavailable Bill Henry Admitting Unavailable Jeremy Magallanes MD Primary Care Provider CHIKIS, Ligia Boggs Attending Unavailable CHIKISLigia OLIVA T Admitting Unavailable CHIKISLigia T Attending Unavailable CHIKIS, Ligia T Attending Unavailable CHIKISLigia OLIVA T Admitting Unavailable Jeremy Magallanes MD Primary Care Provider Jeremy Magallanes MD Attending Provider Arnoldo Somers MD Attending Provider [phone] Giedalyson JACOB, Andrius Miranda Attending Unavailable Giedraitis , Andrius Vytautchela Attending Unavailable Giedraitis , Andrius Vytautas Attending Unavailable Giedraitis , Andrius Vytautchela Attending Unavailable Allergies Allergy Classification Reported Allergen(s) Allergy Type Date of Onset Reaction(s) Facility (20 sources) Ibuprofen Drug Allergy [facility] [employer] Other (20 sources) olodaterol / tiotropium Drug Allergy shortness of breath [facility] [employer] Other (20 sources) CT Scan dye Propensity to adverse reactions [facility] [employer] Other (13 sources) Ibuprofen; Translations: [IBUPROFEN] Drug Allergy 08-19-18 [address] [facility] Repository (2 sources) Iodine (And Iodine Containting Drugs) Drug allergy (disorder) 09-07-19 [address] [facility] Rep[facility] (1 source) NSAIDs Drug allergy (disorder) [facility] (20 sources) fentaNYL Drug Allergy 12-05-19 24 Unknown, [facility] (12 sources) Ibuprofen Drug Allergy 01-15-20 15 Rash, [facility] (20 sources) Ofloxacin Drug Allergy 12-05-19 24 Unknown, [facility] (3 sources) zafirlukast Drug Allergy 01-15-20 15 Unknown [employer] Other (20 sources) Zafirlukast *ANTIASTHMATIC AND BRONCHODILATOR AGEN Propensity to adverse reactions Unknown [facility] Other (20 sources) Ibuprofen & Diet Manage Prod *ANALGESICS - ANTI-IN Propensity to adverse reactions Unknown [employer] Other (3 sources) Allergies Reconciled Propensity to adverse reactions Unknown [employer] Other (20 sources) Iodinated contrast media (substance) Drug allergy 06-03-20 19 Rash, [facility] [employer] Other (3 sources) patient allergy list reviewed by nurse or physicia Propensity to adverse reactions 10-05-19 16 Comment:Done [employer] Other (14 sources) olodaterol Drug Allergy 12-05-19 24 shortness of breath [facility] (14 sources) tiotropium Drug Allergy 12-05-19 24 shortness of breath [facility] (11 sources) Iodinated Contrast Media; Translations: [IODINATED CONTRAST MEDIA] Allergy to substance 06-03-20 19 [facility] (10 sources) Ibuprofen & Diet Manage Prod * Allergy to substance 12-04-19 [facility] Comment on above: Free Text Allergy: I buprofen & Diet Manage Prod *ANALGESICS - ANTI-IN (10 sources) Zafirlukast *ANTIASTHMATIC AND Allergy to substance 12-04-19 [facility] Comment on above: Free Text Allergy: Z afirlukast *ANTIASTHMATIC AND BRONCHODILATOR AGEN (3 sources) DULoxetine Drug Allergy 04-07-20 GI intolerance [facility] (2 sources) cefdinir Drug Allergy 01-22-20 Vomiting [facility] Comment on above: nausea, vomiting Medications [...] Start: 12-24-2022 take 1 tablet by desirae every six [...] Sep, Active take 2 tablets by mo [facility] every four hours as needed [...] as needed Orally every 6 hrs Active [id number] actuat albuterol 0.09 mg/actuat metered dose [...] Start: 07-19-2023 take 2 tablets by mo [facility] in the morning glipiZIDE-metFORMIN (Metaglip) [...] Start: 11-23-2022 take 2 tablets by mo [facility] every twenty-four [...] days May, Active Start: 2023 HYDROcodone-ac etaminophen (Frisco) 10-325 MG tablet Start: 2023 take 1 [...] mg tablet D iscontinued 0 PO .COMPLEX June 17, 2024 12:00am July 23, 2024 [...] 30 mg oral tablet (5 sources) Uncompetitive [place] e Receptor Antagonist, Sigma-1 Agonist Start: 05-26-2021 take 1 tablet by mouth every eight hours Pelican DMT 30-30 MG 1 tablet Orally every [...] 8:39am Start: 02-20-20[address] [facility] every twenty-four hours Cymbalta 60 MG [...] 10-05-2015 Episodic Other aftercare (1 source) Other care home (current) drug therapy; Translations: [OTH GROUP HOME [...] Lactate [Moles/Vol] 2.6 mmol/L Critically high 0.4-2.0 [facility] Comment on above: RESULTS CALLED TO GAURI SRINIVASAN RN at 0220 Basophils Auto (Bld) [#/Vol] on 12-22-2024 Basophils (Bld) [#/Vol] Automated basophil count 0.0-0.1 [facility] Basophils (Bld) [#/Vol] 0.0 10 3/uL 0.0-0.1 [facility] Basophils/100 WBC Auto (Bld) on 12-22-2024 Basophils/100 WBC (Bld) Automated basophil % 0.2-2.0 [facility] Basophils/100 WBC (Bld) 0.6 % 0.2-2.0 [facility] Basophils/100 WBC Manual cnt (Bld)on 12-22-2024 Basophils/100 WBC (Bld) Basophils/100 leukocytes in Blood by Manual count Low 0.2-2.0 [facility] Basophils/100 WBC (Bld) 0.0 % Low 0.2-2.0 [facility] Eosinophils/100 WBC Auto (Bl d)on 12-22-2024 Eosinophils/100 WBC (Bld) Automated eosinophil % 0.9-7.0 [facility] Eosinophils/100 WBC (Bld) 2.0 % 0.9-7.0 [facility] Eosinophils/100 WBC Manual c nt (Bld)on 12-22-2024 Eosinophils/100 WBC (Bld) Eosinophils/100 leukocytes in Blood by Manual count Low 0.9-7.0 [facility] Eosinophils/100 WBC (Bld) 0.0 % Low 0.9-7.0 [facility] Erythrocyte distribution wid th Auto (RBC) [Ratio]on 12-22-2024 Erythrocyte distribution width (RBC) [Ratio] 13.5 % 11.0-15.0 [facility] Estimated glomerular filtrat ion rate (GFR) non- Americanon 12-22-2024 GFR/1.73 sq M.predicted among non-blacks MDRD (S/P/Bld) [Vol rate/Area] Estimated glomerular filtration rate (GFR) non- Low >=60 mL/min/1.73m 2 [facility] GFR/1.73 sq M.predicted among non-blacks MDRD (S/P/Bld) [Vol rate/Area] 59 mL/min/{1.73_m2} Low >=60 mL/min/1.73m 2 [facility] Globulin Calc (S) [Mass/Vol] on 12-22-2024 Globulin (S) [Mass/Vol] Serum globulin measurement by calculation (mass/volume) [facility] Globulin (S) [Mass/Vol] 3.6 g/dL [facility] Glucose mean value [Mass/vol ume] in Blood Estimated from glycated hemoglobinon 12-22-2024 Average glucose Estimated from glycated hemoglobin (Bld) [Mass/Vol] Glucose mean value [Mass/volume] in Blood Estimated from glycated hemoglobin [facility] Average glucose Estimated from glycated hemoglobin (Bld) [Mass/Vol] 192 mg/dL [facility] Hematocrit Auto (Bld) [Volum e fraction]on 12-22-2024 Hematocrit (Bld) [Volume fraction] 56.3 % High 42.0-54.0 [facility] Hemoglobin A1c percentageon 12-22-2024 HbA1c (Bld) [Mass fraction] Hemoglobin A1c percentage High 4.5-6.2 [facility] Comment on above: ADA RECOMMENDED LIMI T 4.0 - 6.0ADA THERAPEUTIC TARGET < 7.0ACTION SUGGESTED> 7.0 HbA1c (Bld) [Mass fraction] 8.3 % High 4.5-6.2 [facility] Comment on above: ADA RECOMMENDED LIMI T 4.0 - 6.0ADA THERAPEUTIC TARGET < 7.0ACTION SUGGESTED> 7.0 Hemoglobin [Mass/volume] in Bloodon 12-22-2024 Hemoglobin (Bld) [Mass/Vol] 18.9 g/dL High 14.0-18.0 [facility] Laboratory - Chemistry and C hemistry - challengeon 12-22-2024 Albumin [Mass/Vol] 4.3 g/dL 3.4-5.0 [facility] ALP [Catalytic activity/Vol] 121 U/L High 46-116 [facility] ALT [Catalytic activity/Vol] 46 U/L 16-63 [facility] AST [Catalytic activity/Vol] 17 U/L 15-37 [facility] Bilirubin [Mass/Vol] 0.4 mg/dL 0.2-1.0 [facility] Calcium [Mass/Vol] 9.7 mg/dL 8.5-10.1 [facility] Chloride [Moles/Vol] 99 mmol/L 98-107 [facility] CO2 [Moles/Vol] 21.7 mmol/L 21.0-32.0 [facility] Creatinine [Mass/Vol] 1.24 mg/dL 0.70-1.30 [facility] GFR/1.73 sq M.predicted MDRD (S/P/Bld) [Vol rate/Area] mL/min/{1.73_m2} >=60 mL/min/1.73m 2 [facility] Glucose [Mass/Vol] 278 mg/dL High 74-106 [facility] Lactate [Moles/Vol] 2.3 mmol/L Critically high 0.4-2.0 [facility] Comment on above: RESULTS CALLED TO DIONE CABALLERO RN at 0009 Lipase [Catalytic activity/Vol] 31.0 U/L 16.0-77.0 [facility] Potassium [Moles/Vol] 4.6 mmol/L 3.5-5.1 [facility] Protein [Mass/Vol] 7.9 g/dL 6.4-8.2 [facility] Sodium [Moles/Vol] 133 mmol/L Low 136-145 [facility] Urea nitrogen [Mass/Vol] 15.0 mg/dL 7.0-18.0 [facility] Urea nitrogen/Creatinine [Mass ratio] 12.1 mg/mg [facility] TSH Qn 1.532 m[IU]/L 0.358-3.740 [facility] Laboratory - Hematology and Cell countson 12-22-2024 Lymphocytes/100 WBC (Bld) 1.0 % Low 20.5-60.0 [facility] Monocytes/100 WBC (Bld) 7.0 % 1.7-12.0 [facility] Immature granulocytes/100 WBC (Bld) 0.2 % 0.0-0.5 [facility] Leukocytes [#/volume] correc jean claude for nucleated erythrocytes in Blood by Automated counon 12-22-2024 WBC corrected for nucl RBC Auto (Bld) [#/Vol] 14.4 10 3/uL High 4.0-11.0 [facility] Lymphocytes Auto (Bld) [#/Vo l]on 12-22-2024 Lymphocytes (Bld) [#/Vol] Lymphocytes [#/volume] in Blood by Automated count 1.2-3.8 [facility] Lymphocytes (Bld) [#/Vol] 2.1 10 3/uL 1.2-3.8 [facility] Lymphocytes/100 WBC Auto (Bl d)on 12-22-2024 Lymphocytes/100 WBC (Bld) Lymphocytes/100 leukocytes in Blood by Automated count 20.5-60.0 [facility] Lymphocytes/100 WBC (Bld) 31.7 % 20.5-60.0 [facility] MCH Auto (RBC) [Entitic mass ]on 12-22-2024 MCH (RBC) [Entitic mass] 29.7 pg 25.9-34.0 [facility] MCHC Auto (RBC) [Mass/Vol]on 12-22-2024 MCHC (RBC) [Mass/Vol] 33.6 g/dL 29.9-35.2 [facility] MCV Auto (RBC) [Entitic vol] on 12-22-2024 MCV (RBC) [Entitic vol] 88.5 fL 80.0-94.0 [facility] Microalbumin [Mass/volume] i n Urineon 12-22-2024 Albumin DL <= 20 mg/L (U) [Mass/Vol] Microalbumin [Mass/volume] in Urine <=30.0 [facility] Albumin DL <= 20 mg/L (U) [Mass/Vol] 2.0 mg/dL <=30.0 [facility] Monocytes Auto (Bld) [#/Vol] on 12-22-2024 Monocytes (Bld) [#/Vol] Automated blood monocyte count 0.3-0.8 [facility] Monocytes (Bld) [#/Vol] 0.7 10 3/uL 0.3-0.8 [facility] Monocytes/100 WBC Auto (Bld) on 12-22-2024 Monocytes/100 WBC (Bld) Automated monocyte % 1.7-12.0 [facility] Monocytes/100 WBC (Bld) 10.7 % 1.7-12.0 [facility] Neutrophils Auto (Bld) [#/Vo l]on 12-22-2024 Neutrophils (Bld) [#/Vol] Neutrophils [#/volume] in Blood by Automated count 1.4-6.5 [facility] Neutrophils (Bld) [#/Vol] 3.6 10 3/uL 1.4-6.5 [facility] Neutrophils/100 WBC Auto (Bl d)on 12-22-2024 Neutrophils/100 WBC (Bld) Automated neutrophil % 43.0-75.0 [facility] Neutrophils/100 WBC (Bld) 54.8 % 43.0-75.0 [facility] No Panel Informationon 12-22 Absolute Basophils (Manual) 0.00 10 3/uL 0.00-0.10 [facility] Eosinophils # (Manual) 0.00 10 3/uL 0.00-0.70 [facility] Lymphocytes # (Manual) 0.14 10 3/uL Low 1.20-3.80 [facility] Monocytes # (Manual) 1.00 10 3/uL High 0.30-0.80 [facility] Segmented Neutrophils # (Manual) 13.24 10 3/uL High 1.4-6.5 [facility] Troponin I High Sensitivity <4.0 pg/mL Low 4.0-76.1 [facility] Comment on above: CUT-OFF POINTS HAVE [...] Eosinophils # (Auto) 0.1 10 3/uL 0.0-0.7 [facility] Immature Granulocyte # (Auto) 0.01 10 3/uL 0.00-0.03 [facility] Prostate Specific Antigen Screen 0.89 ng/mL <=4.00 [facility] Urine Random Creatinine 79.28 mg/dL 20.00-300.00 [facility] Platelet mean volume Auto (B ld) [Entitic vol]on 12-22-2024 Platelet mean volume (Bld) [Entitic vol] 9.4 fL Low 9.5-13.5 [facility] Platelets Auto (Bld) [#/Vol] on 12-22-2024 Platelets (Bld) [#/Vol] 319 10 3/uL 150-450 [facility] RBC Auto (Bld) [#/Vol]on RBC (Bld) [#/Vol] 6.36 10 6/uL High 4.70-6.10 [facility] Segmented neutrophils/100 WB C Manual cnt (Bld)on 12-22-2024 Segmented neutrophils/100 WBC (Bld) Manual blood segmented neutrophils/100 leukocytes High 43.0-75.0 [facility] Segmented neutrophils/100 WBC (Bld) 92.0 % High 43.0-75.0 [facility] Serum or plasma albumin/glob ulin mass ratioon 12-22-2024 Albumin/Globulin [Mass ratio] Serum or plasma albumin/globulin mass ratio [facility] Albumin/Globulin [Mass ratio] 1.2 {ratio} [facility] Serum or plasma anion gap de terminationon 12-22-2024 Anion gap [Moles/Vol] Serum or plasma anion gap determination [facility] Anion gap [Moles/Vol] 16.9 mmol/L [facility] Urine microalbumin/creatinin e mass ratioon 12-22-2024 Albumin/Creatinine DL <= 20 mg/L (U) [Mass ratio] Urine microalbumin/creatin ine mass ratio 0.0-29.9 [facility] Comment on above: NO MICROALBUMINURIA 0-29 MG/GCLINICAL MICROALBUMINURIA 30-300 MG/GMACROALBUMINURIA >300 MG/G Albumin/Creatinine DL <= 20 mg/L (U) [Mass ratio] 25.2 mg/g 0.0-29.9 [facility] Comment on above: NO MICROALBUMINURIA 0-29 MG/GCLINICAL MICROALBUMINURIA 30-300 MG/GMACROALBUMINURIA >300 MG/G CHEMISTRYOrdered By: Sonia Brandt on 11-04-2024 HbA1c (Bld) [Mass fraction] 9.5 % High <=5.9% [facility] ChemAutoSS UliP2hst 11-04-2024 HbA1c (Bld) [Mass fraction] 9.5 % High <=5.9 [facility] Comment on above: Performed By: #### [id number] #### [facility] [address] [place] [address] Basophils Auto (Bld) [#/Vol] on 10-11-2024 Basophils (Bld) [#/Vol] Automated basophil count 0.0-0.1 [facility] Basophils/100 WBC Auto (Bld) on 10-11-2024 Basophils/100 WBC (Bld) Automated basophil % 0.2-2.0 [facility] Eosinophils/100 WBC Auto (Bl d)on 10-11-2024 Eosinophils/100 WBC (Bld) Automated eosinophil % 0.9-7.0 [facility] Erythrocyte distribution wid th Auto (RBC) [Ratio]on 10-11-2024 Erythrocyte distribution width (RBC) [Ratio] Erythrocyte distribution width [Ratio] by Automated count 11.0-15.0 [facility] Estimated glomerular filtrat ion rate (GFR) non- Americanon 10-11-2024 GFR/1.73 sq M.predicted among non-blacks MDRD (S/P/Bld) [Vol rate/Area] Estimated glomerular filtration rate (GFR) non- >=60 mL/min/1.73m 2 [facility] Globulin Calc (S) [Mass/Vol] on 10-11-2024 Globulin (S) [Mass/Vol] Serum globulin measurement by calculation (mass/volume) [facility] Hematocrit Auto (Bld) [Volum e fraction]on 10-11-2024 Hematocrit (Bld) [Volume fraction] Hematocrit [Volume Fraction] of Blood by Automated count 42.0-54.0 [facility] Hemoglobin [Mass/volume] in Bloodon 10-11-2024 Hemoglobin (Bld) [Mass/Vol] Hemoglobin [Mass/volume] in Blood 14.0-18.0 [facility] Laboratory - Chemistry and C hemistry - challengeon 10-11-2024 Albumin [Mass/Vol] 3.5 g/dL 3.4-5.0 [facility] ALP [Catalytic activity/Vol] 102 U/L 46-116 [facility] ALT [Catalytic activity/Vol] 39 U/L 16-63 [facility] AST [Catalytic activity/Vol] 13 U/L Low 15-37 [facility] Bilirubin [Mass/Vol] 0.2 mg/dL 0.2-1.0 [facility] Calcium [Mass/Vol] 9.1 mg/dL 8.5-10.1 [facility] Chloride [Moles/Vol] 102 mmol/L 98-107 [facility] CO2 [Moles/Vol] 28.4 mmol/L 21.0-32.0 [facility] Creatinine [Mass/Vol] 0.97 mg/dL 0.70-1.30 [facility] GFR/1.73 sq M.predicted MDRD (S/P/Bld) [Vol rate/Area] mL/min/{1.73_m2} >=60 mL/min/1.73m 2 [facility] Glucose [Mass/Vol] 317 mg/dL High 74-106 [facility] Potassium [Moles/Vol] 4.3 mmol/L 3.5-5.1 [facility] Protein [Mass/Vol] 6.7 g/dL 6.4-8.2 [facility] Sodium [Moles/Vol] 136 mmol/L 136-145 [facility] Urea nitrogen [Mass/Vol] 14.0 mg/dL 7.0-18.0 [facility] Urea nitrogen/Creatinine [Mass ratio] 14.4 mg/mg [facility] Laboratory - Hematology and Cell countson 10-11-2024 Immature granulocytes/100 WBC (Bld) 0.2 % 0.0-0.5 [facility] Leukocytes [#/volume] correc jean claude for nucleated erythrocytes in Blood by Automated counon 10-11-2024 WBC corrected for nucl RBC Auto (Bld) [#/Vol] Leukocytes [#/volume] corrected for nucleated erythrocytes in Blood by Automated coun 4.0-11.0 [facility] Lymphocytes Auto (Bld) [#/Vo l]on 10-11-2024 Lymphocytes (Bld) [#/Vol] Lymphocytes [#/volume] in Blood by Automated count 1.2-3.8 [facility] Lymphocytes/100 WBC Auto (Bl d)on 10-11-2024 Lymphocytes/100 WBC (Bld) Lymphocytes/100 leukocytes in Blood by Automated count 20.5-60.0 [facility] MCH Auto (RBC) [Entitic mass ]on 10-11-2024 MCH (RBC) [Entitic mass] MCH [Entitic mass] by Automated count 25.9-34.0 [facility] MCHC Auto (RBC) [Mass/Vol]on 10-11-2024 MCHC (RBC) [Mass/Vol] MCHC [Mass/volume] by Automated count 29.9-35.2 [facility] MCV Auto (RBC) [Entitic vol] on 10-11-2024 MCV (RBC) [Entitic vol] MCV [Entitic volume] by Automated count 80.0-94.0 [facility] Monocytes Auto (Bld) [#/Vol] on 10-11-2024 Monocytes (Bld) [#/Vol] Automated blood monocyte count 0.3-0.8 [facility] Monocytes/100 WBC Auto (Bld) on 10-11-2024 Monocytes/100 WBC (Bld) Automated monocyte % 1.7-12.0 [facility] Neutrophils Auto (Bld) [#/Vo l]on 10-11-2024 Neutrophils (Bld) [#/Vol] Neutrophils [#/volume] in Blood by Automated count 1.4-6.5 [facility] Neutrophils/100 WBC Auto (Bl d)on 10-11-2024 Neutrophils/100 WBC (Bld) Automated neutrophil % 43.0-75.0 [facility] No Panel Informationon 10-11 Eosinophils # (Auto) 0.2 10 3/uL 0.0-0.7 [facility] Immature Granulocyte # (Auto) 0.02 10 3/uL 0.00-0.03 [facility] Platelet mean volume Auto (B ld) [Entitic vol]on 10-11-2024 Platelet mean volume (Bld) [Entitic vol] Platelet mean volume [Entitic volume] in Blood by Automated count Low 9.5-13.5 [facility] Platelets Auto (Bld) [#/Vol] on 10-11-2024 Platelets (Bld) [#/Vol] Platelets [#/volume] in Blood by Automated count 150-450 [facility] RBC Auto (Bld) [#/Vol]on RBC (Bld) [#/Vol] Erythrocytes [#/volume] in Blood by Automated count 4.70-6.10 [facility] Serum or plasma albumin/glob ulin mass ratioon 10-11-2024 Albumin/Globulin [Mass ratio] Serum or plasma albumin/globulin mass ratio [facility] Serum or plasma anion gap de terminationon 10-11-2024 Anion gap [Moles/Vol] Serum or plasma anion gap determination [facility] Estimated glomerular filtrat ion rate (GFR) non- Americanon 08-26-2024 GFR/1.73 sq M.predicted among non-blacks MDRD (S/P/Bld) [Vol rate/Area] Estimated glomerular filtration rate (GFR) non- >=60 mL/min/1.73m 2 [facility] Laboratory - Chemistry and C hemistry - challengeon 08-26-2024 Creatinine [Mass/Vol] 1.02 mg/dL 0.70-1.30 [facility] GFR/1.73 sq M.predicted MDRD (S/P/Bld) [Vol rate/Area] mL/min/{1.73_m2} >=60 mL/min/1.73m 2 [facility] EGDon 06-03-2024 [facility] No Panel InformationOrdered By: Rosalia Shea on 06-03-2024 [facility] No Panel InformationOrdered By: Bill Henry on 06-03-2024 Miscellaneous Pathology Test See comment [facility] Comment on above: See report. Scanned copy available in EMR. No Panel Informationon 06-03 Helicobacter pylori Urease Test Negative [facility] Pathology Request for Lab Co rpon 06-03-2024 Pathology Request for Lab Raymond Normal [facility] Comment on above: Order Comment: PATHO LOGY GI SPECIMEN Result Comment: See report. Scanned copy available in EMR. PERFORMED BY: [place] [address] PATHOLOGIST TOASTER ELEMENT REPAIRER JON PONCE M.D. Performed By: #### P ATH TO [facility] #### [address] [facility]14-[id number] NICHOLAS CRAIG ([id number]) 1960 M Date Time Provider Department 05/14/24 AMEYA MERAZ [id number] During your visit today, we recorded the following information about you: Keily Martines 05/14/2024 1:11 PM Signed Referral was sent from [facility] for new consult with Dr Meraz Please see below and advise Vivian Morley 05/15/2024 11:54 AM Addendum Consult from Dr. Jeremy Magallanes (Internal Medicine) [facility] Referral received from PCP [...] Reviewed Reason for Visit: New Patient [172] Mammography Technologist - Other [[id number]] Problem List As Of Date: 05/14/2024 (None) Encounter Status:Closed by VIVIAN MORLEY on 05/21/24 Normal [facility] Basophils Auto (Bld) [#/Vol] on 02-27-2024 Basophils (Bld) [#/Vol] 0.1 10 3/uL 0.0-0.1 [facility] Basophils/100 WBC Auto (Bld) on 02-27-2024 Basophils/100 WBC (Bld) 0.5 % 0.2-2.0 [facility] Eosinophils/100 WBC Auto (Bl d)on 02-27-2024 Eosinophils/100 WBC (Bld) 2.5 % 0.9-7.0 [facility] Erythrocyte distribution wid th Auto (RBC) [Ratio]on 02-27-2024 Erythrocyte distribution width (RBC) [Ratio] 13.5 % 11.0-15.0 [facility] Estimated glomerular filtrat ion rate (GFR) non- Americanon 02-27-2024 GFR/1.73 sq M.predicted among non-blacks MDRD (S/P/Bld) [Vol rate/Area] mL/min/{1.73_m2} >=60 [facility] Hematocrit Auto (Bld) [Volum e fraction]on 02-27-2024 Hematocrit (Bld) [Volume fraction] 47.1 % 42.0-54.0 [facility] Hemoglobin [Mass/volume] in Bloodon 02-27-2024 Hemoglobin (Bld) [Mass/Vol] 15.5 g/dL 14.0-18.0 [facility] Laboratory - Chemistry and C hemistry - challengeon 02-27-2024 Calcium [Mass/Vol] 8.9 mg/dL 8.5-10.1 [facility] Chloride [Moles/Vol] 98 mmol/L 98-107 [facility] CO2 [Moles/Vol] 28.1 mmol/L 21.0-32.0 [facility] Creatinine [Mass/Vol] 0.86 mg/dL 0.70-1.30 [facility] GFR/1.73 sq M.predicted MDRD (S/P/Bld) [Vol rate/Area] mL/min/{1.73_m2} >=60 [facility] Glucose [Mass/Vol] 237 mg/dL High 74-106 [facility] Lactate [Moles/Vol] 1.3 mmol/L 0.4-2.0 [facility] Potassium [Moles/Vol] 4.4 mmol/L 3.5-5.1 [facility] Sodium [Moles/Vol] 130 mmol/L Low 136-145 [facility] Urea nitrogen [Mass/Vol] 21.0 mg/dL High 7.0-18.0 [facility] [facility] Urea nitrogen/Creatinine [Mass ratio] 24.4 mg/mg [facility] - Hematology and Cell countson 02-27-2024 Immature granulocytes/100 WBC (Bld) 0.3 % 0.0-0.5 [facility] Leukocytes [#/volume] correc jena claude for nucleated erythrocytes in Blood by Automated counon 02-27-2024 WBC corrected for nucl RBC Auto (Bld) [#/Vol] 9.3 10 3/uL 4.0-11.0 [facility] Lymphocytes Auto (Bld) [#/Vo l]on 02-27-2024 Lymphocytes (Bld) [#/Vol] 2.4 10 3/uL 1.2-3.8 [facility] Lymphocytes/100 WBC Auto (Bl d)on 02-27-2024 Lymphocytes/100 WBC (Bld) 25.5 % 20.5-60.0 [facility] MCH Auto (RBC) [Entitic mass ]on 02-27-2024 MCH (RBC) [Entitic mass] 29.1 pg 25.9-34.0 [facility] MCHC Auto (RBC) [Mass/Vol]on 02-27-2024 MCHC (RBC) [Mass/Vol] 32.9 g/dL 29.9-35.2 [facility] MCV Auto (RBC) [Entitic vol] on 02-27-2024 MCV (RBC) [Entitic vol] 88.5 fL 80.0-94.0 [facility] Monocytes Auto (Bld) [#/Vol] on 02-27-2024 Monocytes (Bld) [#/Vol] 1.1 10 3/uL High 0.3-0.8 [facility] Monocytes/100 WBC Auto (Bld) on 02-27-2024 Monocytes/100 WBC (Bld) 12.0 % 1.7-12.0 [facility] Neutrophils Auto (Bld) [#/Vo l]on 02-27-2024 Neutrophils (Bld) [#/Vol] 5.5 10 3/uL 1.4-6.5 [facility] Neutrophils/100 WBC Auto (Bl d)on 02-27-2024 Neutrophils/100 WBC (Bld) 59.2 % 43.0-75.0 [facility] No Panel Informationon 02-26 Eosinophils # (Auto) 0.2 10 3/uL 0.0-0.7 [facility] Immature Granulocyte # (Auto) 0.03 10 3/uL 0.00-0.03 [facility] Platelet mean volume Auto (B ld) [Entitic vol]on 02-27-2024 Platelet mean volume (Bld) [Entitic vol] 8.8 fL Low 9.5-13.5 [facility] Platelets Auto (Bld) [#/Vol] on 02-27-2024 Platelets (Bld) [#/Vol] 288 10 3/uL 150-450 [facility] RBC Auto (Bld) [#/Vol]on RBC (Bld) [#/Vol] 5.32 10 6/uL 4.70-6.10 [facility] Serum or plasma anion gap de terminationon 02-27-2024 Anion gap [Moles/Vol] 8.3 mmol/L [facility] Basophils Auto (Bld) [#/Vol] on 12-05-2023 Basophils (Bld) [#/Vol] 0.1 10 3/uL 0.0-0.1 [facility] Basophils/100 WBC Auto (Bld) on 12-05-2023 Basophils/100 WBC (Bld) 0.9 % 0.2-2.0 [facility] Eosinophils/100 WBC Auto (Bl d)on 12-05-2023 Eosinophils/100 WBC (Bld) 2.7 % 0.9-7.0 [facility] Erythrocyte distribution wid th Auto (RBC) [Ratio]on 12-05-2023 Erythrocyte distribution width (RBC) [Ratio] 13.1 % 11.0-15.0 [facility] Estimated glomerular filtrat ion rate (GFR) non- Americanon 12-05-2023 GFR/1.73 sq M.predicted among non-blacks MDRD (S/P/Bld) [Vol rate/Area] mL/min/{1.73_m2} >=60 [facility] Glucose mean value [Mass/vol ume] in Blood Estimated from glycated hemoglobinon 12-05-2023 Average glucose Estimated from glycated hemoglobin (Bld) [Mass/Vol] 171 mg/dL [facility] Hematocrit Auto (Bld) [Volum e fraction]on 12-05-2023 Hematocrit (Bld) [Volume fraction] 48.9 % 42.0-54.0 [facility] Hemoglobin [Mass/volume] in Bloodon 12-05-2023 Hemoglobin (Bld) [Mass/Vol] 16.0 g/dL 14.0-18.0 [facility] - Chemistry and C hemistry - challengeon 12-05-2023 Calcium [Mass/Vol] 9.7 mg/dL 8.5-10.1 [facility] Chloride [Moles/Vol] 102 mmol/L 98-107 [facility] CO2 [Moles/Vol] 27.6 mmol/L 21.0-32.0 [facility] Creatinine [Mass/Vol] 1.01 mg/dL 0.70-1.30 [facility] GFR/1.73 sq M.predicted MDRD (S/P/Bld) [Vol rate/Area] mL/min/{1.73_m2} >=60 [facility] Glucose [Mass/Vol] 156 mg/dL High 74-106 [facility] Potassium [Moles/Vol] 4.4 mmol/L 3.5-5.1 [facility] Sodium [Moles/Vol] 139 mmol/L 136-145 [facility] Urea nitrogen [Mass/Vol] 13.0 mg/dL 7.0-18.0 [facility] Urea nitrogen/Creatinine [Mass ratio] 12.9 mg/mg [facility] - Hematology and Cell countson 12-05-2023 ESR (Bld) [Velocity] 17 mm/h <=20 [facility] HbA1c (Bld) [Mass fraction] 7.6 % High 4.5-6.2 [facility] Comment on above: ADA RECOMMENDED LIMI T 4.0 - 6.0ADA THERAPEUTIC TARGET < 7.0ACTION SUGGESTED> 7.0 Immature granulocytes/100 WBC (Bld) 0.4 % 0.0-0.5 [facility] Leukocytes [#/volume] correc jean claude for nucleated erythrocytes in Blood by Automated counon 12-05-2023 WBC corrected for nucl RBC Auto (Bld) [#/Vol] 7.7 10 3/uL 4.0-11.0 [facility] Lymphocytes Auto (Bld) [#/Vo l]on 12-05-2023 Lymphocytes (Bld) [#/Vol] 2.4 10 3/uL 1.2-3.8 [facility] Lymphocytes/100 WBC Auto (Bl d)on 12-05-2023 Lymphocytes/100 WBC (Bld) 31.2 % 20.5-60.0 [facility] MCH Auto (RBC) [Entitic mass ]on 12-05-2023 MCH (RBC) [Entitic mass] 28.5 pg 25.9-34.0 [facility] MCHC Auto (RBC) [Mass/Vol]on 12-05-2023 MCHC (RBC) [Mass/Vol] 32.7 g/dL 29.9-35.2 [facility] MCV Auto (RBC) [Entitic vol] on 12-05-2023 MCV (RBC) [Entitic vol] 87.0 fL 80.0-94.0 [facility] Monocytes Auto (Bld) [#/Vol] on 12-05-2023 Monocytes (Bld) [#/Vol] 0.7 10 3/uL 0.3-0.8 [facility] Monocytes/100 WBC Auto (Bld) on 12-05-2023 Monocytes/100 WBC (Bld) 9.5 % 1.7-12.0 [facility] Neutrophils Auto (Bld) [#/Vo l]on 12-05-2023 Neutrophils (Bld) [#/Vol] 4.2 10 3/uL 1.4-6.5 [facility] Neutrophils/100 WBC Auto (Bl d)on 12-05-2023 Neutrophils/100 WBC (Bld) 55.3 % 43.0-75.0 [facility] No Panel Informationon 12-04 Eosinophils # (Auto) 0.2 10 3/uL 0.0-0.7 [facility] Immature Granulocyte # (Auto) 0.03 10 3/uL 0.00-0.03 [facility] Platelet mean volume Auto (B ld) [Entitic vol]on 12-05-2023 Platelet mean volume (Bld) [Entitic vol] 8.6 fL Low 9.5-13.5 [facility] Platelets Auto (Bld) [#/Vol] on 12-05-2023 Platelets (Bld) [#/Vol] 330 10 3/uL 150-450 [facility] RBC Auto (Bld) [#/Vol]on RBC (Bld) [#/Vol] 5.62 10 6/uL 4.70-6.10 [facility] Serum or plasma anion gap de terminationon 12-05-2023 Anion gap [Moles/Vol] 13.8 mmol/L [facility] Magnesiumon 07-02-2023 Magnesium [Mass/Vol] 2.5651046 mg/dL Normal 1.8- 2.4 mg/dL [facility] Magnesium see note [facility] Other XR CHEST 2 Von 11-24-2022 XR [...] by: RUBI TAVERAS Date: 2022-11-24 17:17 Normal [facility] CT LUNG CANCER SCREENINGon 1 [...] by: YEISON NAVAS Date: 2022-07-20 07:18 Normal [facility] CBC AUTO DIFFon 06-07-2022 BASO # 0.1 103/ul Normal 0.0-0.1 [facility] Comment on above: Performed By: #### C BC #### [facility] [address] [address] [address] Eran Chacon Basophils/100 WBC (Bld) 0.6 % Normal 0.2-2.[address] [facility] Comment on above: Performed By: #### C BC #### [facility] [address] [address] [address] Eran Chacon EO # 0.3 103/ul Normal 0.0-0.[address] [facility] Comment on above: Performed By: #### C BC #### [facility] [address] [place] [address] Dr. Eran Chacon Eosinophils/100 WBC (Bld) 3.3 % Normal 0.9-7.[address] [facility] Comment on above: Performed By: #### C BC #### [facility] [address] [place] [address] Dr. Eran Chacon Erythrocyte distribution width (RBC) [Ratio] 12.9 % Normal 11.0-15.0 [facility] Comment on above: Performed By: #### C BC #### [facility] [address] [place] [address] Dr. Eran Chacon Hematocrit (Bld) [Volume fraction] 47.7 % Normal 42.0-54.0 [facility] Comment on above: Performed By: #### C BC #### [facility] [address] [place] [address] Dr. Eran Chacon Hemoglobin (Bld) [Mass/Vol] 15.9 g/dL Normal 14.0-18.[address] [facility] Comment on above: Performed By: #### C BC #### [facility] [address] [place] [address] Dr. Eran Chacon IG # 0.02 10e3/ul Normal 0.00-0.[address] [facility] Comment on above: Performed By: #### C BC #### [facility] [address] [place] [address] Dr. Eran Chacon IG % 0.2 % Normal 0.0-0.[address] [facility] Comment on above: Performed By: #### C BC #### [facility] [address] [place] [address] Dr. Eran Chacon LYMPH # 3.4 103/ul Normal 1.2-3.[address] [facility] Comment on above: Performed By: #### C BC #### [facility] [address] [place] [address] Dr. Eran Chacon Lymphocytes/100 WBC (Bld) 34.5 % Normal 20.5-60.[address] [facility] Comment on above: Performed By: #### C BC #### [facility] [address] [place] [address] Dr. Eran Chacon MANUAL DIFF REQ NO Normal [facility] Comment on above: Performed By: #### C BC #### [facility] [address] [place] [address] Dr. Eran Chacon MCH (RBC) [Entitic mass] 29.6 pg Normal 25.9-34.0 [facility] Comment on above: Performed By: #### C BC #### [facility] [address] [place] [address] Dr. Eran Chacon MCHC (RBC) [Mass/Vol] 33.3 g/dL Normal 29.9-35.[address] [facility] Comment on above: Performed By: #### C BC #### [facility] [address] [place] [address] Dr. Eran Chacon MCV (RBC) [Entitic vol] 88.8 fL Normal 80.0-94.[address] [facility] Comment on above: Performed By: #### C BC #### [facility] [address] [place] [address] Dr. Eran Chacon MONO # 0.9 103/ul Critically high 0.3-0.8 [facility] Comment on above: Performed By: #### C BC #### [facility] [address] [place] [address] Dr. Eran Chacon Monocytes/100 WBC (Bld) 9.3 % Normal 1.7-12.[address] [facility] Comment on above: Performed By: #### C BC #### [facility] [address] [place] [address] Dr. Eran Chacon NEUT # 5.2 103/ul Normal 1.4-6.5 [facility] Comment on above: Performed By: #### C BC #### [facility] [address] [place] [address] Dr. Eran Chacon Neutrophils/100 WBC (Bld) 52.1 % Normal 43.0-75.0 [facility] Comment on above: Performed By: #### C BC #### [facility] [address] [place] [address] Dr. Eran Chacon Platelet mean volume (Bld) [Entitic vol] 8.8 fL Critically low 9.5-13.5 [facility] Comment on above: Performed By: #### C BC #### [facility] [address] [place] [address] Dr. Eran Chacon PLT 287 103/ul Normal 150-[address] [facility] Comment on above: Performed By: #### C BC #### [facility] [address] [place] [address] Dr. Eran Chacon RBC 5.37 106/ul Normal 4.70-6.[address] [facility] Comment on above: Performed By: #### C BC #### [facility] [address] [place] [address] Dr. Eran Chacon WBC 9.9 103/ul Normal 4.0-11.0 [facility] Comment on above: Performed By: #### C BC #### [facility] [address] [place] [address] Dr. Eran Chacon ER URINE PROFILEon 2 Bilirubin Ql (U) Negative Normal NEGATIVE [facility] Comment on above: Performed By: #### BISHNU BATESRO #### [facility] [address] [place] [address] Dr. Eran Chacon Clarity (U) CLEAR Normal CLEAR [facility] Comment on above: Performed By: #### Med SHER UMICRO #### [facility] [address] [place] [address] Dr. Eran Chacon Color (U) YELLOW Normal YELLOW [facility] Comment on above: Performed By: #### ERMELINDA BATESICRO #### [facility] [address] [address] [address] Eran GATES A micrscopic examination will be performed if indicated. Normal [facility] Comment on above: Performed By: #### ERMELINDA BATESICRO #### [facility] [address] [address] [address] Eran Chacon Glucose Ql (U) 500 mg/dl Abnormal NEGATIVE [facility] Comment on above: Performed By: #### Med SHER UMICRO #### [facility] [address] [address] [address] Eran Chacon Hemoglobin Ql (U) TRACE-INTACT Abnormal NEGATIVE [facility] Comment on above: Performed By: #### Med SHER UMICRO #### [facility] [address] [place] [address] Dr. Eran Chacon Ketones Ql (U) Negative Normal NEGATIVE [facility] Comment on above: Performed By: #### Med SHER UMICRO #### [facility] [address] [place] [address] Dr. Eran Chacon LEUKOCYTES Negative Normal NEGATIVE [facility] Comment on above: Performed By: #### eMd SHER UMICRO #### [facility] [address] [place] [address] Dr. Eran Chacon Nitrite Ql (U) Negative Normal NEGATIVE [facility] Comment on above: Performed By: #### ERMELINDA BATESICRO #### [facility] [address] [place] [address] Dr. Eran Chacon pH (U) 6.0 [pH] Normal 5-9 [facility] Comment on above: Performed By: #### BISHNU BATESRO #### [facility] [address] [place] [address] Dr. Eran Chacon SPEC GRAVITY 1.025 Normal 1.005-<=1.02 5 [facility] Comment on above: Performed By: #### ERMELINDA BATESICRO #### [facility] [address] [place] [address] Dr. Eran Chacon UA PROTEIN Negative Normal NEGATIVE/ TRACE [facility] Comment on above: Performed By: #### HANNA BATES #### [facility] [address] [place] [address] Dr. Eran Chacon UR MICRO IND INDICATED Normal [facility] Comment on above: Performed By: #### HANNA BATES #### [facility] [address] [place] [address] Dr. Eran Chacon Urobilinogen Qn (U) 0.2 {Aureliano'U}/dL Normal 0.2 - 1. 0 [facility] Comment on above: Performed By: #### HNANA BATES #### [facility] [address] [place] [address] Dr. Eran Chacon PROF 14(COMP METB)on 022 Albumin [Mass/Vol] 4.0 g/dL Normal 3.4-5.0 [facility] Comment on above: Performed By: #### C MP #### [facility] [address] [place] [address] Dr. Eran Chacon Albumin/Globulin [Mass ratio] 1.2 {ratio} Normal [facility] Comment on above: Performed By: #### C MP #### [facility] [address] [place] [address] Dr. Eran Chacon ALP [Catalytic activity/Vol] 104 U/L Normal 46-[address] [facility] Comment on above: Performed By: #### C MP #### [facility] [address] [place] [address] Dr. Eran Chacon ALT [Catalytic activity/Vol] 28 U/L Normal 16-63 [facility] Comment on above: Performed By: #### C MP #### [facility] [address] [place] [address] Dr. Eran Chacon Anion gap [Moles/Vol] 7.2 mmol/L Normal [facility] Comment on above: Performed By: #### C MP #### [facility] [address] [place] [address] Dr. Eran Chacon AST [Catalytic activity/Vol] 14 U/L Critically low 15-37 [facility] Comment on above: Performed By: #### C MP #### [facility] [address] [address] [address] Eran Chacon Bilirubin [Mass/Vol] 0.4 mg/dL Normal 0.2-1.0 [facility] Comment on above: Performed By: #### C MP #### [facility] [address] [address] [address] Eran Chacon Calcium [Mass/Vol] 9.0 mg/dL Normal 8.5-10.1 [facility] Comment on above: Performed By: #### C MP #### [facility] [address] [place] [address] Dr. Eran Chacon Chloride [Moles/Vol] 103 mmol/L Normal 98-107 [facility] Comment on above: Performed By: #### C MP #### [facility] [address] [place] [address] Dr. Eran Chacon CO2 [Moles/Vol] 30.0 mmol/L Normal 21.0-32.0 [facility] Comment on above: Performed By: #### C MP #### [facility] [address] [place] [address] Dr. Eran Chacon Creatinine [Mass/Vol] 0.85 mg/dL Normal 0.70-1.30 [facility] Comment on above: Performed By: #### C MP #### [facility] [address] [place] [address] Dr. Eran Chacon EGFR-AF ARMENIAN >60 Normal >=60 [facility] Comment on above: Performed By: #### C MP #### [facility] [address] [place] [address] Dr. Eran Chacon EGFR-NON AF ARMENIAN >60 Normal >=60 [facility] Comment on above: Performed By: #### C MP #### [facility] [address] [place] [address] Dr. Eran Chacon Globulin (S) [Mass/Vol] 3.3 g/dL Normal [facility] Comment on above: Performed By: #### C MP #### [facility] [address] [address] [address] Eran Chacon Glucose [Mass/Vol] 165 mg/dL Critically high 74-106 [facility] Comment on above: Performed By: #### C MP #### [facility] [address] [address] [address] Eran Chacon Potassium [Moles/Vol] 4.2 mmol/L Normal 3.5-5.1 [facility] Comment on above: Performed By: #### C MP #### [facility] [address] [address] [address] Eran Chacon Protein [Mass/Vol] 7.3 g/dL Normal 6.4-8.2 [facility] Comment on above: Performed By: #### C MP #### [facility] [address] [address] [address] Eran Chacon Sodium [Moles/Vol] 136 mmol/L Normal 136-145 [facility] Comment on above: Performed By: #### C MP #### [facility] [address] [address] [address] Eran Chacon Urea nitrogen [Mass/Vol] 10.0 mg/dL Normal 7.0-18.0 [facility] Comment on above: Performed By: #### C MP #### [facility] [address] [address] [address] Eran Chacon Urea nitrogen/Creatinine [Mass ratio] 11.8 mg/mg Normal [facility] Comment on above: Performed By: #### C MP #### [facility] [address] [address] [address] Eran Chacon URINE MICROSCOPIC ONLYon BACTERIA NONE SEEN Normal NONE SEEN [facility] Comment on above: Performed By: #### E HANNA SHER #### [facility] [address] [address] [address] Eran Chacon Bacteria identified Cx Nom (U) NOT INDICATED Normal [facility] Comment on above: Performed By: #### E RUR, UMICRO #### [facility] [address] [place] [address] Dr. Eran Chacon CAST NONE SEEN Normal NONE SEEN [facility] Comment on above: Performed By: #### Med SHER UMICRO #### [facility] [address] [place] [address] Dr. Eran Chacon Crystals LM Nom (Urine sed) NONE SEEN Normal NONE SEEN [facility] Comment on above: Performed By: #### Med SHER UMICRO #### [facility] [address] [place] [address] Dr. Eran Chacon Epithelial cells LM Ql (Urine sed) RARE Normal NONE SEEN /RARE [facility] Comment on above: Performed By: #### Med SHER UMICRO #### [facility] [address] [place] [address] Dr. Eran Chacon MUCOUS NONE SEEN Normal NONE SEEN [facility] Comment on above: Performed By: #### Med SHER UMICRO #### [facility] [address] [place] [address] Dr. Eran Chacon RBC 0-2 Normal 0-[address] [facility] Comment on above: Performed By: #### Med SHER UMICRO #### [facility] [address] [place] [address] Dr. Eran Chacon WBC 2-5 Abnormal NONE SEEN [facility] Comment on above: Performed By: #### Med SHER UMICRO #### [facility] [address] [place] [address] Dr. Eran Chacon MRI SHOULDER LT WO [...] by: YEISON NAVAS Date: 2022-02-02 17:09 Normal [facility] Vital Signs Date Time Vital Sign Value Performing Clinician Facility 02-16-2025 14:47-0400 Body height 175.26 cm Jeremy Magallanes MD Work Phone: [facility] 02-16-2025 14:47-0400 Body mass index (BMI) [Ratio] 34 kg/m2 Jeremy Magallanes MD Work Phone: [facility] 02-16-2025 14:47-0400 Body weight 104.32 kg Jeremy Magallanes MD Work Phone: [facility] 02-16-2025 14:47-0400 Diastolic blood pressure 74 mm[Hg] Jeremy Magallanes MD Work Phone: [facility] 02-16-2025 14:47-0400 Heart rate 81 /min Jeremy Magallanes MD Work Phone: [facility] 02-16-2025 14:47-0400 Respiratory rate 12 /min Jeremy Magallanes MD Work Phone: [facility] 02-16-2025 14:47-0400 SaO2% (BldA) [Mass fraction] 97 % Jeremy Magallanes MD Work Phone: [facility] 02-16-2025 14:47-0400 Systolic blood pressure 120 mm[Hg] Jeremy Magallanes MD Work Phone: [facility] 01-21-2025 09:27-0400 Body height 175.26 cm [facility] 01-21-2025 09:27-0400 Body mass index (BMI) [Ratio] 34.1 kg/m2 [facility] 01-21-2025 09:27-0400 Body temperature 98.5 [degF] [facility] 01-21-2025 09:27-0400 Body weight 104.77 kg [facility] 01-21-2025 09:27-0400 Diastolic blood pressure 82 mm[Hg] [facility] 01-21-2025 09:27-0400 Heart rate 72 /min [facility] 01-21-2025 09:27-0400 SaO2% (BldA) [Mass fraction] 97 % [facility] 01-21-2025 09:27-0400 Systolic blood pressure 144 mm[Hg] [facility] 12-22-2024 08:21-0400 Body height 175.26 cm [facility] 12-22-2024 08:21-0400 Body mass index (BMI) [Ratio] 33.6 kg/m2 [facility] 12-22-2024 08:21-0400 Body temperature 98.6 [degF] [facility] 12-22-2024 08:21-0400 Body weight 103.41 kg [facility] 12-22-2024 08:21-0400 Diastolic blood pressure 81 mm[Hg] [facility] 12-22-2024 08:21-0400 Heart rate 71 /min [facility] 12-22-2024 08:21-0400 SaO2% (BldA) [Mass fraction] 94 % [facility] 12-22-2024 08:21-0400 Systolic blood pressure 143 mm[Hg] [facility] 10-15-2024 08:56-0500 Body height 175.26 cm [facility] 10-15-2024 08:56-0500 Body mass index (BMI) [Ratio] 34.5 kg/m2 [facility] 10-15-2024 08:56-0500 Body temperature 98 [degF] [facility] 10-15-2024 08:56-0500 Body weight 106.14 kg [facility] 10-15-2024 08:56-0500 Diastolic blood pressure 81 mm[Hg] [facility] 10-15-2024 08:56-0500 Heart rate 76 /min [facility] 10-15-2024 08:56-0500 Systolic blood pressure 136 mm[Hg] [facility] 07-23-2024 10:21-0500 Body height 175.26 cm [facility] 07-23-2024 10:21-0500 Body mass index (BMI) [Ratio] 34.2 kg/m2 [facility] 07-23-2024 10:21-0500 Body weight 105.23 kg [facility] 07-23-2024 10:21-0500 Diastolic blood pressure 75 mm[Hg] [facility] 07-23-2024 10:21-0500 Heart rate 73 /min [facility] 07-23-2024 10:21-0500 SaO2% (BldA) [Mass fraction] 97 % [facility] 07-23-2024 10:21-0500 Systolic blood pressure 133 mm[Hg] [facility] 06-17-2024 09:13-0400 Body height 175.26 cm MD Jeremy Magallanes Work Phone: [facility] 06-17-2024 09:13-0400 Body mass index (BMI) [Ratio] 33.5 kg/m2 MD Jeremy Magallanes Work Phone: [facility] 06-17-2024 09:13-0400 Body temperature 98.1 [degF] MD Jeremy Magallanes Work Phone: [facility] 06-17-2024 09:13-0400 Body weight 102.96 kg MD Jeremy Magallanes Work Phone: [facility] 06-17-2024 09:13-0400 Diastolic blood pressure 83 mm[Hg] MD Jeremy Magallanes Work Phone: [facility] 06-17-2024 09:13-0400 Heart rate 79 /min MD Jeremy Magallanes Work Phone: [facility] 06-17-2024 09:13-0400 Systolic blood pressure 149 mm[Hg] MD Jeremy Magallanes Work Phone: [facility] 05-27-2024 14:56-0400 Body height 175.3 cm [employer] Work Phone: [facility] [employer] [facility] 05-27-2024 14:56-0400 Body mass index (BMI) [Ratio] 33.97 kg/m2 [employer] Work [facility]: [facility] [employer] 05-27-2024 14:56-0400 Body weight 104.33 kg [employer] Work Phone: [facility] [employer] [facility] 04-07-2024 10:04-0400 Body height 180.3 cm Malathi Sanchez MD Work Phone: [facility] 04-07-2024 10:04-0400 Body mass index (BMI) [Ratio] 32.78 kg/m2 Malathi Sanchez MD Work Phone: [facility] 04-07-2024 10:04-0400 Body weight 106.59 kg Malathi Sanchez MD Work Phone: [facility] 04-07-2024 10:04-0400 Diastolic blood pressure 88 mm[Hg] Malathi Sanchez MD Work Phone: [facility] 04-07-2024 10:04-0400 Systolic blood pressure 184 mm[Hg] Malathi Sanchez MD Work Phone: [facility] 03-18-2024 08:46-0400 Body height 175.26 cm [facility] 03-18-2024 08:46-0400 Body mass index (BMI) [Ratio] 34.4 kg/m2 [facility] 03-18-2024 08:46-0400 Body weight 105.68 kg [facility] 03-18-2024 08:46-0400 Diastolic blood pressure 80 mm[Hg] [facility] 03-18-2024 08:46-0400 Heart rate 72 /min [facility] 03-18-2024 08:46-0400 Systolic blood pressure 130 mm[Hg] [facility] 03-03-2024 11:54-0400 Body height 175.26 cm [facility] 03-03-2024 11:54-0400 Body mass index (BMI) [Ratio] 34.7 kg/m2 [facility] 03-03-2024 11:54-0400 Body weight 106.59 kg [facility] 03-03-2024 11:54-0400 Diastolic blood pressure 81 mm[Hg] [facility] 03-03-2024 11:54-0400 Heart rate 69 /min [facility] 03-03-2024 11:54-0400 Systolic blood pressure 129 mm[Hg] [facility] 12-17-2023 08:54-0400 Body height 175.26 cm [facility] 12-17-2023 08:54-0400 Body mass index (BMI) [Ratio] 35.2 kg/m2 [facility] 12-17-2023 08:54-0400 Body weight 108.4 kg [facility] 12-17-2023 08:54-0400 Diastolic blood pressure 76 mm[Hg] [facility] 12-17-2023 08:54-0400 Heart rate 76 /min [facility] 12-17-2023 08:54-0400 Systolic blood pressure 154 mm[Hg] [facility] 12-05-2023 08:52-0400 Body height 175.26 cm [facility] 12-05-2023 08:52-0400 Body mass index (BMI) [Ratio] 35 kg/m2 [facility] 12-05-2023 08:52-0400 Body weight 107.67 kg [facility] 12-05-2023 08:52-0400 Diastolic blood pressure 78 mm[Hg] [facility] 12-05-2023 08:52-0400 Heart rate 69 /min [facility] 12-05-2023 08:52-0400 Systolic blood pressure 147 mm[Hg] [facility] 09-13-2023 13:30-0500 Body height 175.26 cm Jeremy Magallanes Other [facility] 09-13-2023 13:30-0500 Body mass index (BMI) [Ratio] 33.22 kg/m2 Jeremy Magallanes Other [employer] [facility] [employer] Other 09-13-2023 13:30-0500 Body temperature 98.4 [degF] Jeremy Magallanes Other [employer] [facility] [employer] Other 09-13-2023 13:30-0500 Body weight 102.06 kg Jeremy Magallanes Other [employer] Other 09-13-2023 13:30-0500 Body weight 102.05 kg [facility] 09-13-2023 13:30-0500 Diastolic blood pressure 80 mm[Hg] Jeremy Magallanes Other [facility] 09-13-2023 13:30-0500 SaO2% (BldA) [Mass fraction] 93 % Jeremy Magallanes Other [employer] Other 09-13-2023 13:30-0500 Systolic blood pressure 118 mm[Hg] Jeremy Magallanes Other [facility] 08-13-2023 10:30-0500 Body height 175.26 cm Jeremy Magallanes Other [employer] Other 08-13-2023 10:30-0500 Body mass index (BMI) [Ratio] 33.9 kg/m2 Jeremy Magallanes Other [employer] Other 08-13-2023 10:30-0500 Body weight 104.15 kg Jeremy Magallanes Other [employer] Other 08-13-2023 10:30-0500 Diastolic blood pressure 78 mm[Hg] Jeremy Magallanes Other [employer] Other 08-13-2023 10:30-0500 Systolic blood pressure 124 mm[Hg] Jeremy Magallanes Other [employer] Other 06-25-2023 08:45-0500 Body height 175.26 cm Jeremy Magallanes Other [employer] Other 06-25-2023 08:45-0500 Body mass index (BMI) [Ratio] 33.37 kg/m2 Jeremy Magallanes Other [employer] Other 06-25-2023 08:45-0500 Body temperature 96.5 [degF] Jeremy Magallanes Other [employer] Other 06-25-2023 08:45-0500 Body weight 102.51 kg Jeremy Magallanes Other [employer] Other 06-25-2023 08:45-0500 Diastolic blood pressure 85 mm[Hg] Jeremy Magallanes Other [employer] Other 06-25-2023 08:45-0500 Systolic blood pressure 149 mm[Hg] Jeremy Magallanes Other [employer] Other 05-28-2023 10:45-0400 Body height 175.26 cm Jeremy Magallanes Other [employer] Other 05-28-2023 10:45-0400 Body mass index (BMI) [Ratio] 33.52 kg/m2 Jeremy Magallanes Other [employer] Other 05-28-2023 10:45-0400 Body weight 102.97 kg Jeremy Magallanes Other [employer] Other 05-28-2023 10:45-0400 Diastolic blood pressure 82 mm[Hg] Jeremy Magallanes Other [employer] Other 05-28-2023 10:45-0400 Systolic blood pressure 147 mm[Hg] Jeremy Magallanes Other [employer] Other 2023 08:45-0400 Body height 175.26 cm Jeremy Magallanes Other [employer] Other 2023 08:45-0400 Body mass index (BMI) [Ratio] 33.52 kg/m2 Jeremy Magallanes Other [employer] Other 2023 08:45-0400 Body weight 102.97 kg Jeremy Magallanes Other [employer] Other 2023 08:45-0400 Diastolic blood pressure 85 mm[Hg] Jeremy Magallanes Other [employer] Other 2023 08:45-0400 Systolic blood pressure 156 mm[Hg] Jeremy Magallanes Other [employer] Other 04-30-2023 09:45-0400 Body height 175.26 cm Jeremy Magallanes Other [employer] Other 04-30-2023 09:45-0400 Body mass index (BMI) [Ratio] 34.32 kg/m2 Jeremy Magallanes Other [employer] Other 04-30-2023 09:45-0400 Body temperature 96.2 [degF] Jeremy Magallanes Other [employer] Other 04-30-2023 09:45-0400 Body weight 105.42 kg Jeremy Magallanes Other [employer] Other 04-30-2023 09:45-0400 Diastolic blood pressure 78 mm[Hg] Jeremy Magallanes Other [employer] Other 04-30-2023 09:45-0400 Respiratory rate 16 /min Jeremy Magallanes Other [employer] Other 04-30-2023 09:45-0400 Systolic blood pressure 146 mm[Hg] Jeremy Magallanes Other [employer] Other 02-20-2023 09:15-0400 Body height 175.26 cm Jeremy Magallanes Other [employer] Other 02-20-2023 09:15-0400 Body mass index (BMI) [Ratio] 33.46 kg/m2 Jeremy Magallanes Other [employer] Other 02-20-2023 09:15-0400 Body weight 102.79 kg Jeremy Magallanes Other [employer] Other 02-20-2023 09:15-0400 Diastolic blood pressure 77 mm[Hg] Jeremy Magallanes Other [employer] Other 02-20-2023 09:15-0400 Systolic blood pressure 131 mm[Hg] Jeremy Magallanes Other [employer] Other 01-17-2023 08:45-0400 Body height 175.26 cm Jeremy Magallanes Other [employer] Other 01-17-2023 08:45-0400 Body mass index (BMI) [Ratio] 33.37 kg/m2 Jeremy Magallanes Other [employer] Other 01-17-2023 08:45-0400 Body weight 102.51 kg Jeremy Magallanes Other [employer] Other 01-17-2023 08:45-0400 Diastolic blood pressure 79 mm[Hg] Jeremy Magallanes Other [employer] Other 01-17-2023 08:45-0400 Systolic blood pressure 128 mm[Hg] Jeremy Magallanes Other [employer] Other 11-23-2022 09:30-0400 Body height 175.26 cm Jeremy Magallanes Other [employer] Other 11-23-2022 09:30-0400 Body mass index (BMI) [Ratio] 33.96 kg/m2 Jeremy Magallanes Other [employer] Other 11-23-2022 09:30-0400 Body weight 104.33 kg Jeremy Magallanes Other [employer] Other 11-23-2022 09:30-0400 Diastolic blood pressure 72 mm[Hg] Jeremy Magallanes Other [employer] Other 11-23-2022 09:30-0400 Systolic blood pressure 122 mm[Hg] Jeremy Magallanes Other [employer] Other 09-04-2022 11:30-0500 Body height 175.26 cm Jeremy Magallanes Other [employer] Other 09-04-2022 11:30-0500 Body mass index (BMI) [Ratio] 33.52 kg/m2 Jeremy Magallanes Other [employer] Other 09-04-2022 11:30-0500 Body weight 102.97 kg Jeremy Magallanes Other [employer] Other 09-04-2022 11:30-0500 Diastolic blood pressure 80 mm[Hg] Jeremy Magallanes Other [employer] Other 09-04-2022 11:30-0500 SaO2% (BldA) [Mass fraction] 95 % Jeremy Magallanes Other [employer] Other 09-04-2022 11:30-0500 Systolic blood pressure 122 mm[Hg] Jeremy Magallanes Other [employer] Other 02-06-2022 12:45-0400 Body height 175.26 cm Kesha Olexa Other [employer] Other 02-06-2022 12:45-0400 Body mass index (BMI) [Ratio] 31.01 kg/m2 Kesha Olexa Other [employer] Other 02-06-2022 12:45-0400 Body weight 95.26 kg Kesha Olexa Other [employer] Other 05-26-2021 13:15-0400 Body height 175.26 cm Harriet Mo Other [employer] Other 05-26-2021 13:15-0400 Body mass index (BMI) [Ratio] 31.01 kg/m2 Harriet Elizabethnty Other [employer] Other 05-26-2021 13:15-0400 Body temperature 98.3 [degF] Harriet Elizabethnty Other [employer] Other 05-26-2021 13:15-0400 Body weight 95.26 kg Harriet Ginty Other [employer] Other 05-26-2021 13:15-0400 SaO2% (BldA) [Mass fraction] 96 % Harriet Elizabethnty Other [employer] Other Encounters Encounter Date Encounter Type Care Provider Facility Start: 04-05-2025 End: 04-05-2025 ambulatory Zacarias Pike MD Facility:[facility] Start: 02-16-2025 End: 02-16-2025 ambulatory Jeremy Magallanes MD Work Phone: [facility] Work Phone: Start: 02-16-2025 End: 02-16-2025 Patient encounter procedure Jeremy Magallanes MD -[facility] Work Phone: Start: 01-21-2025 End: 01-21-2025 ambulatory [facility] Work Phone: Start: 01-21-2025 End: 01-21-2025 Patient encounter procedure [facility] Work Phone: Start: 12-23-2024 Non-patient / Non-visit [facility] Work Phone: Start: 12-22-2024 End: 12-22-2024 ambulatory [facility] Work Phone: Start: 12-22-2024 End: 12-22-2024 Patient encounter procedure [facility] Work Phone: Start: 11-23-2024 End: 11-23-2024 ambulatory Zacarias Pike MD Facility: [facility] Start: 11-04-2024 End: 11-05-2024 ambulatory Ligia DIOP Facility:[facility] Start: 11-04-2024 End: 11-05-2024 Patient encounter procedure Ligia DIOP [facility] Start: 11-04-2024 End: 11-05-2024 ambulatory Ligia DIOP Facility:[facility] Start: 10-15-2024 End: 10-15-2024 ambulatory [facility] Work Phone: Start: 10-15-2024 End: 10-15-2024 Patient encounter procedure [facility] Work Phone: Start: 10-12-2024 Non-patient / Non-visit [facility] Work Phone: Start: 10-11-2024 Non-patient / Non-visit [facility] Work Phone: Start: 08-26-2024 Non-patient / Non-visit [facility] Work Phone: Start: 08-17-2024 End: 08-17-2024 ambulatory Zacarias Pike MD Facility: [facility] Start: 07-23-2024 End: 07-23-2024 Patient encounter procedure [facility] Work Phone: Start: 07-21-2024 Non-patient / Non-visit [facility] Work Phone: Start: 07-20-2024 Non-patient / Non-visit [facility] Work Phone: Start: 06-17-2024 End: 06-17-2024 ambulatory MD Jeremy Magallanes Work Phone: [facility] Work Phone: Start: 06-17-2024 End: 06-17-2024 Patient encounter procedure MD Jeremy Magallanes Work Phone: [facility] Work Phone: Start: 06-12-2024 End: 06-12-2024 Orders Only Not In System Ref Prov [facility] Start: 06-10-2024 End: 06-10-2024 Orders Only Rosalia Shea [facility] Comment on above: Dysphagia, unspecifi ed type; Black stools Start: 06-03-2024 End: 06-03-2024 ambulatory MD Jeremy Magallanes Work Phone: [facility] Work Phone: Start: 06-03-2024 End: 06-03-2024 Departed Referred MD Jeremy Magallanes Work Phone: [facility] Start: 06-03-2024 Non-patient / Non-visit MD Angelina Magallanes Work Phone: [facility] Work Phone: Start: 05-27-2024 End: 05-27-2024 Office outpatient new 30 minutes Priyanka Vaz [employer] Work Phone: [facility] Comment on above: Dysphagia, unspecifi ed type (Primary Dx); Black stools; Gastroesophageal reflux disease, unspecified whether esophagitis present; Abnormal esophagram Start: 05-27-2024 End: 05-27-2024 ambulatory PRIYANKAETHAN VAZ [facility] Start: 05-18-2024 End: 05-18-2024 ambulatory Zacarias Pike MD Facility:[facility] Start: 05-14-2024 End: 05-21-2024 Telephone encounter Ameya [...] 04-07-2024 ambulatory MALATHI SANCHEZ Not Available Start: 03-18-2024 End: 03-18-2024 ambulatory [facility] Work Phone: Start: 03-18-2024 End: 03-18-2024 Patient encounter procedure [facility] Work Phone: Start: 03-03-2024 End: 03-03-2024 ambulatory [facility] Work Phone: Start: 03-03-2024 End: 03-03-2024 Patient encounter procedure [facility] Work Phone: Start: 02-27-2024 Non-patient / Non-visit [facility] Work Phone: Start: 12-17-2023 End: 12-17-2023 ambulatory [facility] Work Phone: Start: 12-17-2023 End: 12-17-2023 Patient encounter procedure [facility] Work Phone: Start: 12-05-2023 End: 12-05-2023 ambulatory [facility] Work Phone: Start: 12-05-2023 End: 12-05-2023 Patient encounter procedure [facility] Work Phone: Start: 10-23-2023 Non-patient / Non-visit [facility] Work Phone: Start: 10-08-2023 Non-patient / Non-visit [facility] Work Phone: Start: 10-07-2023 End: 10-07-2023 ambulatory BARBIE Tellez POCOS Not Available Start: 09-18-2023 End: 09-18-2023 ambulatory Jeremy Sona Other [employer] Other Start: 09-18-2023 Telephone encounter Jeremy Sona [facility] Start: 09-13-2023 End: 09-13-2023 ambulatory Jeremy Sona Other [employer] Other Start: 09-13-2023 Office outpatient vi sit 15 minutes Jeremy Sona [facility] Start: 09-13-2023 End: 09-13-2023 Patient encounter procedure [facility]- Start: 09-11-2023 Telephone encounter Argentina coleman PT Work Phone: [facility] Comment on above: re: PT Eval [...] 09-10-2023 End: 09-10-2023 ambulatory Jeremy Magallanes Other [employer] Other Start: 09-10-2023 Telephone encounter Jeremy Magallanes [facility] Start: 09-06-2023 End: 09-06-2023 ambulatory Jeremy Magallanes Other [employer] Other Start: 09-06-2023 Telephone encounter Jeremy Magallanes [facility] Start: 09-02-2023 End: 09-02-2023 ambulatory JIN POCOS Not Available Start: 08-20-2023 End: 08-20-2023 ambulatory Jeremy Magallanes Other [employer] Other Start: 08-20-2023 Telephone encounter Jeremy Magallanes [facility] Start: 08-13-2023 End: 08-13-2023 ambulatory Jeremy Magallanes Other [employer] Other Start: 08-13-2023 Office outpatient vi sit 25 minutes Jeremy Magallanes [facility] Start: 08-13-2023 Telephone encounter Jeremy Magallanes [facility] Start: 08-06-2023 End: 08-06-2023 ambulatory Jeremy Magallanes Other [employer] Other Start: 08-06-2023 Telephone encounter Jeremy Magallanes [facility] Start: 07-29-2023 End: 07-29-2023 ambulatory JIN POCOS Not Available Start: 07-22-2023 End: 07-22-2023 ambulatory Jeremy Magallanes Other [employer] Other Start: 07-22-2023 Telephone encounter Jeremy Magallanes [facility] Start: 07-19-2023 End: 07-19-2023 ambulatory Jeremy Magallanes Other [employer] Other Start: 07-19-2023 Telephone encounter Jeremy Magallanes [facility] Start: 07-18-2023 End: 07-18-2023 ambulatory Jeremy Magallanes Other [employer] Other Start: 07-18-2023 Telephone encounter Jeremy Magallanes [facility] Start: 07-02-2023 End: 07-02-2023 ambulatory Jeremy Magallanes Other [employer] Other Start: 07-02-2023 Office outpatient vi sit 15 minutes Jeremy Magallanes [facility] Start: 07-02-2023 Telephone encounter Jeremy Magallanes [facility] Start: 06-25-2023 End: 06-25-2023 ambulatory Jeremy Magallanes Other [employer] Other Start: 06-25-2023 Office outpatient vi sit 15 minutes Jeremy Magallanes [facility] Start: 06-21-2023 End: 06-21-2023 ambulatory Jeremy Magallanes Other [employer] Other Start: 06-21-2023 Encounter by compute r link Jeremy Magallanes [facility] Start: 06-20-2023 End: 06-20-2023 ambulatory Jeremy Magallanes Other [employer] Other Start: 06-20-2023 Telephone encounter Jeremy Magallanes [facility] Start: 06-17-2023 End: 06-17-2023 ambulatory Jeremy Sona Other [employer] Other Start: 06-17-2023 Telephone encounter Jeremy Magallanes [facility] Start: 06-10-2023 End: 06-10-2023 ambulatory Jeremy Magallanes Other [employer] Other Start: 06-10-2023 Telephone encounter Jeremy Magallanes [facility] Start: 06-03-2023 End: 06-03-2023 ambulatory Jeremy Magallanes Other [employer] Other Start: 06-03-2023 Telephone encounter Jeremy Magallanes [facility] Start: 05-30-2023 End: 05-30-2023 Patient encounter procedure Barbie Jesus [facility] Start: 05-28-2023 End: 05-28-2023 ambulatory Jeremy Magallanes Other [employer] Other Start: 05-28-2023 Office outpatient vi sit 15 minutes Jeremy Sona [facility] Start: 2023 End: 2023 ambulatory Jeremy Magallanes Other [employer] Other Start: 2023 Office outpatient vi sit 15 minutes Jeremy Sona [facility] Start: 05-16-2023 End: 05-16-2023 ambulatory Jeremy Sona Other [employer] Other Start: 05-16-2023 Telephone encounter Jeremy Magallanes [facility] Start: 04-30-2023 End: 04-30-2023 ambulatory Jeremy Sona Other [employer] Other Start: 04-30-2023 Office outpatient vi sit 15 minutes Jeremy Sona [facility] Start: 04-26-2023 End: 04-26-2023 ambulatory Jeremy Sona Other [employer] Other Start: 04-26-2023 Telephone encounter Jeremy Magallanes [facility] Start: 04-23-2023 End: 04-23-2023 ambulatory Jeremy Magallanes Other [employer] Other Start: 04-23-2023 Telephone encounter Jeremy Magallanes [facility] Start: 03-25-2023 End: 03-25-2023 ambulatory Jeremy Magallanes Other [employer] Other Start: 03-25-2023 Telephone encounter Jeremy Sona [facility] Start: 03-06-2023 End: 03-06-2023 ambulatory Jeremy Sona Other [employer] Other Start: 03-06-2023 Telephone encounter Jeremy Sona [facility] Start: 02-20-2023 End: 02-20-2023 ambulatory Jeremy Sona Other [employer] Other Start: 02-20-2023 Office outpatient vi sit 25 minutes Jeremy Sona [facility] Start: 02-05-2023 End: 02-05-2023 ambulatory Jeremy Sona Other [employer] Other Start: 02-05-2023 Telephone encounter Jeremy Sona [facility] Start: 01-21-2023 End: 01-21-2023 ambulatory Jeremy Sona Other [employer] Other Start: 01-21-2023 Telephone encounter Jeremy Sona [employer] Start: 01-17-2023 End: 01-17-2023 ambulatory Jeremy Sona Other [employer] Other Start: 01-17-2023 Office outpatient vi sit 15 minutes Jeremy Sona [facility] Start: 12-24-2022 End: 12-24-2022 ambulatory Jeremy Sona Other [employer] Other Start: 12-24-2022 Telephone encounter Jeremy Sona [facility] Start: 12-03-2022 End: 12-03-2022 ambulatory Jeremy Sona Other [employer] Other Start: 12-03-2022 Telephone encounter Jeremy Sona [facility] Start: 11-27-2022 End: 11-27-2022 ambulatory Jeremy Magallanes Other [employer] Other Start: 11-27-2022 Telephone encounter Jeremy Magallanes [facility] Start: 11-26-2022 End: 11-26-2022 ambulatory Jeremy Magallanes Other [employer] Other Start: 11-26-2022 Telephone encounter Jeremy Magallanes [facility] Start: 11-24-2022 End: 11-25-[address] JEREMY MAGALLANES Facility:[facility] Start: 11-23-2022 End: 11-23-2022 ambulatory Jeremy Magallanes Other [employer] Other Start: 11-23-2022 Office outpatient vi sit 15 minutes Jeremy Magallanes [facility] Start: 11-05-2022 End: 11-05-2022 ambulatory Jeremy Magallanes Other [employer] Other Start: 11-05-2022 Telephone encounter Jeremy Magallanes [facility] Start: 10-03-2022 End: 10-03-2022 ambulatory Jeremy Magallanes Other [employer] Other Start: 10-03-2022 Telephone encounter Jeremy Magallanes [facility] Start: 09-04-2022 End: 09-04-2022 ambulatory Jeremy Magallanes Other [employer] Other Start: 09-04-2022 Office outpatient vi sit 25 minutes Jeremy Magallanes [facility] Start: 07-26-[address] JEREMY MAGALLANES Facil ity:[facility] Start: 07-19-2022 End: 07-20-[address] WILFREDO ENGLE Facility:[facility] Start: 06-07-2022 End: 06-07-[address] JEREMY MAGALLANES Facility:[facility] Start: 03-15-2022 ambulatory KESHA TRUJILLO Facility:[facility] Start: 02-06-2022 End: 02-06-2022 ambulatory Kesha [place] Other [employer] Other Start: 02-06-2022 Office outpatient vi sit 25 minutes Kesha Trujillo [facility] Start: 02-02-2022 End: 02-03-2022 ambulatory KESHA TRUJILLO Facility:H1 Start: 12-28-2021 End: 12-28-[address] JEREMY MAGALLANES Facility:H1 Start: 12-12-2021 End: 12-13-2021 ambulatory KESHA TRUJILLO [employer] Other Start: 12-12-2021 Office outpatient ne w 30 minutes Kesha [place]illo [facility] Start: 05-26-2021 Office outpatient vi sit 15 minutes Harriet Ginty [facility] Procedures Date Procedure Procedure Detail Performing Clinician Start: 06-03-2024 Esophagogastroduodenoscopy Priyanka vázquez [employer] Work Phone: Start: 06-03-2024 Level i surg [...] Td Vaccines (3 - Td or Tdap) [facility] [employer] [facility] Start: 05-27-2025 Adult BMI Screening [facility] Start: 05-27-2025 Tobacco Screening Tobacco Screening [facility] [employer] [facility] Start: 10-15-2024 Patient referral [facility] Work Phone: Start: 04-19-2024 Influenza vaccination Influenza Vaccine [facility] Start: 04-07-2024 End: 04-07-2024 Patient encounter procedure 04/07/2024 10:30 AM EDT Office Visit [facility] [address] [place] [address] Malathi Sanchez MD [address] [facility] [address] [place] [address] Arrived [facility] Comment on above: Arrived Start: 03-18-2024 Patient referral [facility] Work Phone: Start: 10-07-2023 End: 10-07-2023 Patient encounter procedure 10/07/2023 8:00 AM EST Office Visit [facility] [address] [place] [address] Barbie Jesus DO [address] [place] [address] [facility] Start: 2010 Administration of varicella zoster vaccine Zoster (Shingles) Vaccine (1 of 2) [facility] Start: 1978 Adult BMI Follow Up Plan Adult BMI Follow Up Plan [facility] Start: 1972 Depression Screening Depression Screening [facility] Start: 1960 Tobacco Counseling Tobacco Counseling [facility] Comprehensive metabo lic 2000 panel - Serum or Plasma [facility] CT Chest [facility] Neck W [facility] End: 05-27-2025 Esophagogastroduodenoscopy EGD GI Routine Dysphagia, unspecified type Black stools 1 Occurrences starting 05/27/2024 until 05/27/2025 [facility] Work Phone: Comment on above: 1 Occurrences starting 05/27/2024 until 05/27/2025 Patient referral [facility] Work Phone: XR Pelvis and Hip - bilateral Views [facility] Immunizations Immunization Date Immunization Notes Care Provider Fa cility 06-02-2018 Influenza, injectabl e, Madin Kyleigh Canine Kidney, preservative free, quadrivalent Argentina Clinton PT Work Phone: [facility] 06-02-2018 influenza virus vaccine, unspecified formulation Priyanka Vaz [employer] Work Phone: [facility] 05-17-2017 influenza virus vaccine, split virus (incl. purified surface antigen) Jeremy Magallanes Other [employer] Other 05-17-2017 influenza virus vaccine, unspecified formulation [facility] 05-16-2017 influenza, injectabl e, quadrivalent, preservative free Argentina Clinton PT Work Phone: [facility] 06-28-2016 influenza, injectabl e, quadrivalent, preservative free Argentina Clinton PT Work Phone: [facility] 06-28-2016 tetanus and diphther ia toxoids, adsorbed, preservative free, for adult use (5 Lf of tetanus toxoid and 2 Lf of diphtheria toxoid) Jeremy Magallanes Other [facility] 05-25-2015 influenza, seasonal, injectable, preservative free Argentina Clinton PT Work Phone: [facility] 05-25-2015 tetanus and diphther ia toxoids, adsorbed, preservative free, for adult use (5 Lf of tetanus toxoid and 2 Lf of diphtheria toxoid) Jeremy Magallanes Other [facility] 06-15-1999 pneumococcal conjuga te vaccine, 7 valent Argentina Clinton PT Work Phone: [facility] Healthcare Payers Date Payer Category Payer Medicaid [id number] 2013 Medicare [id number] 1960 Unknown [id number] 2.16.84 0.1.339479.3.579.2.593 1960 Unknown [id number] 2.16.84 0.1.183442.3.579.2.593 1960 Unknown [id number] 2.16.84 0.1.549234.3.579.2.593 1960 Unknown [id number] 2.16.84 0.1.820741.3.579.2.593 1960 Unknown [id number] 2.16.84 0.1.397259.3.579.2.593 1960 Unknown [id number] 2.16.84 0.1.865763.3.579.2.593 1960 Unknown [id number] 2.16.84 0.1.418877.3.579.2.593 1960 Unknown [id number] 2.16.84 0.1.525758.3.579.2.593 1960 Unknown [id number] 2.16.84 0.1.053550.3.579.2.1259 1960 Unknown [id number] 2.16.84 0.1.069739.3.579.2.1259 1960 Unknown [id number] 2.16.84 0.1.199353.3.579.2.1259 1960 Unknown [id number] 2.16.84 0.1.186907.3.579.2.1259 1960 Unknown [id number] 2.16.840 .1.149420.3.579.2.1259 1960 Unknown [id number] 2.16.8 40.1.682241.3.579.2.1286 1960 Unknown [id number] 2.16.8 40.1.329680.3.579.2.727 1960 Unknown [id number] 2.16.8 40.1.039880.3.579.2.727 1960 Unknown [id number] 2.16. 840.1.634011.3.579.2.196 1960 Unknown [id number] 2.16. 840.1.354601.3.579.2.196 1960 Unknown [id number] 2.16. 840.1.072049.3.579.2.196 1960 Unknown [id number] 2.16. 840.1.641718.3.579.2.196 1959 Medicaid [id number] 2. 16.840.1.910963.19 1959 Medicare [id number] 2.1 [id number] Self-pay [id number] Social History Date Type Detail Facility Start: 09-29-2020 End: 09-02-2023 Sex Assigned At [facility] Tobacco smoking status [facility] Start: 06-03-2019 End: 03-27-2023 Tobacco smoking status [facility] Smokes tobacco daily [facility] Work Phone: History of tobacco use Cigarette Smoker N [facility] Start: 09-29-2020 End: 03-27-2023 Cigarettes smoked current (pack per day) - Reported 0.5 [facility] Start: 06-03-2019 End: 03-27-2023 Tobacco use and exposure Smokeless tobacco non-user [facility] Start: 09-02-2023 End: 05-27-2024 Alcohol intake Lifetime non-drinker (finding) [facility] Start: 03-27-2023 Alcohol Comment Caffine- Soda [facility] Start: 1960 Sex Assigned At Male [facility] Start: 08-21-2023 Gender identity Identifies as male gender (finding) [facility] Start: 08-21-2023 Sexual orientation Heterosexual (finding) [facility] Start: 02-06-2017 End: 02-16-2025 Tobacco smoking status RIIS Ex-smoker (finding) [facility] Tobacco smoking stat [facility] Tobacco smoking consumption unknown [facility] Start: 1960 Sex assigned at Not on file [facility] Frequency of Alcohol Consumption Never [facility] Start: 06-01-2019 End: 01-21-2025 Sex Male (finding) [facility] Medical Equipment Procedure Code Equipment [...] mellitus acute December 22, 2024 8: 19am [facility] Work Phone: 1(203) 379-544505-06-2025 Evaluation note* Diagnosis Onset Date Resolution Status Admit Date Bronchitis acute December 22, 2024 8:19am Bruising acute December 22, 2024 8:19am Enlarged prostate acute December 8:19am Screening PSA (prostate spec ific antigen) acute December 22, 2024 8: 19am Type II diabetes mellitus acute December 22, 2024 8:19am Bronchitis acute January 21, 2025 9:26am [facility] Work Phone: 1(372) 428-731403-19-2025 NoteProgress Note-Nurse LVM to talk about A1C level, he will be getting a one year card but will have to talk with his PCP about getting that number down.[facility] 10-15-2024 Evaluation note* Diagnosis Onset Date Resolution Status Admit Date Bladder diverticulum acute Febr uary 2024 8:52am Enlarged prostate acute Februar y 2024 8:52am Lymphadenopathy acute October 15, 2024 8:52am Urticaria acute October 15, 2024 8:52am Bruising acute December 22, 2024 8:19am Enlarged prostate acute December 8:19am Screening PSA (prostate spec ific antigen) acute December 22, 2024 8: 19am Type II diabetes mellitus acute December 22, 2024 8:19am [facility] Work Phone: 1(538) 816-581512-05-2024 Evaluation note* Diagnosis Onset Date Resolution Status Admit Date GERD (gastroesophageal reflu x disease) acute July 23 10:18am Lymphadenopathy acute July 23, 2024 10:18am Mass of left submandibular region acute July 23 10:18am Bladder diverticulum acute ua2024 8:52am Enlarged prostate acute 2024 8:52am Lymphadenopathy acute October 15, 2024 8:52am [facility] Work Phone: 1(376) 911-530210-25-2024 Miscellaneous Notes* Telephone Encounter - Evelyn Mendoza [...] it increases his risk of esophageal cancer. ThanksDr. Kc * Telephone Encounter - Evelyn Mendoza CMA - 06/12/2024 12:00 PM EDT Spoke with patient regarding pathology results. Patient verbally understood with no further questions. 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 Address verified with patient. documented in this encounterPrem[facility] Center[id number] Telephone encounter Note* Telephone Encounter - Evelyn [...] risk of esophageal cancer. Thanks, Dr. Kc [facility]10-25-2024 Telephone encounter Note* Telephone Encounter - Evelyn eMndoza CMA - 06/12/2024 12:00 PM EDT Spoke with patient regarding pathology results. Patient verbally understood with no further questions. 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 Address verified with patient. [facility]10-09-2024 History of Present illness Narrative* Priyanka Vaz, [employer] - 05/27/2024 2:30 PM EDT Images from [...] gallbladder polyp. He saw Dr. Martinez in [place] for this. He also reports a positive [...] confusion. Past Medical History: Diagnosis Date Cancer ([facility]) Chronic back pain COPD (chronic obstructive pulmonary disease) ([facility]) Dental disease full dentures Diabetes mellitus ([facility]) Shortness of breath Skin cancer MELANOMA & [...] patient/family/caregiver Referring and communicating with other health career and guidance counselor Dysphagia, unspecified type [R13.10] CHARLEE BIGGS [facility] [place] This note was created with the assistance of a speech recognition program. While intending to generate a timely document that accurately reflects the content of the visit, no guarantee can be provided that every grammatical or spelling mistake has been or will be identified or corrected. Thank you for your understanding. CHARLEE Biggs 05/27/24 1555 documented in this encounterPremier Health [facility] Valley Medical CenterPoliglota [id number] Telephone encounter Note* Telephone Encounter - Vivian Morley - 05/15/2024 11:35 AM EDT Images from the original note were not included. Consult from Dr. Jeremy Magallanes (Internal Medicine) [facility] Referral received from PCP [...] completed: 04/08/2024 Barium Swallow 03/21/2024 CT Chest [facility]09-27-2024 Miscellaneous Notes* Telephone Encounter - Vivian Morley - 05/15/2024 11:35 AM EDT Images from the original note were not included. Consult from Dr. Jeremy Magallanes (Internal Medicine) [facility] Referral received from PCP [...] were not included. Referral was sent from [facility] for new consult with Dr Meraz Please see below and advise [facility] Telephone encounter Note * Telephone Encounter - Keily Martines - 05/14/2024 1:07 PM EDT Images from the original note were not included. Referral was sent from [facility] for new consult with Dr Meraz Please see below and advise [facility]09-16-2024 Telephone encounter Note* Telephone Encounter - Cynthia Sanchez - 05/04/2024 9:45 AM EDT Left message on sister's voice mail to contact Dr Magallanes's office for referral. [facility] [id number] Miscellaneous Notes* Telephone Encounter - Cynthia Sanchez [...] referral sent to Dr Ameya Meraz at [facility]. He is a gastrologist. The fax number is [phone] . Pt's sister would like a call back at [phone]. documented in this encounterSaint Mary's Health [id number] Telephone encounter Note* Telephone Encounter - Malathi Sanchez MD - 05/04/2024 9:27 AM EDT That needs to be done by Dr Magallanes's office [facility] [id number] Telephone encounter Note* Telephone Encounter - Cynthia Sanchez - 05/04/2024 9:15 AM EDT Pt's sister called in. She said her brother would like a referral sent to Dr Ameya Meraz at [facility]. He is a gastrologist. The fax number is [phone] . Pt's sister would like a call back at [phone]. [facility] [id number] History of Present illness Narrative* Malathi Sanchez MD - 04/07/2024 10:30 AM EDT Subjective Patient ID: Alex Craig is a 63 y.o. male who presents for Neck Mass (CT @ [facility] 02/26>[facility]) Pt reports he is getting [...] resolved. F/U if recurs documented in this [facility]02-14-2024 Telephone encounter Note* Telephone Encounter - Maris Tavera - 10/02/2023 1:35 PM EST No attempts to hear back; closing referral. [facility] [id number] Miscellaneous Notes* Telephone Encounter - Maris Tavera - 10/02/2023 1:35 PM EST No attempts to hear back; closing referral. documented in this [facility]01-26-2024 Evaluation note* Encounter Date Diagnosis Assessment Notes Treatment Notes Treatment Clinical Notes Aug, Chronic obstructive pulmonary disease, unspecified (ICD-10 - J44.9) Finish antibiotics and prednisone as prescribed. Denies pulmonary referral at this time. Hasn't smoked since 09/08 and declines chantix or patches. Aug, Current smoker (ICD-10 - F17.200) [employer] Other 01-23-2024 Evaluation note* Encounter Date Diagnosis Assessment Notes Treatment Notes Treatment Clinical Notes Aug, Lumbar radicular pain (ICD-10 - M54.16) [employer] Other 01-19-2024 Evaluation note* Encounter Date Diagnosis Assessment Notes Treatment Notes Treatment Clinical Notes Aug, Lumbar radicular pain (ICD-10 - M54.16) [employer] Other 12-26-2023 Evaluation note* Encounter Date Diagnosis Assessment Notes Treatment Notes Treatment Clinical Notes Jul, Type 2 diabetes mellitus with hyperglycemia, without long-term current use of insulin (ICD-10 - E11.65) [employer] Other 12-26-2023 Evaluation note* Encounter Date Diagnosis [...] T3s after shoulder pain has improved post-operatively. [employer] Other 12-04-2023 Evaluation note* Encounter Date Diagnosis Assessment Notes Treatment Notes Treatment Clinical Notes Jul, Type 2 diabetes mellitus with hyperglycemia, without long-term current use of insulin (ICD-10 - E11.65) [employer] Other 12-01-2023 Evaluation note* Encounter Date Diagnosis Assessment Notes Treatment Notes Treatment Clinical Notes Jul, Type 2 diabetes mellitus with hyperglycemia, without long-term current use of insulin (ICD-10 - E11.65) [employer] Other 11-30-2023 Evaluation note* Encounter Date Diagnosis Assessment Notes Treatment Notes Treatment Clinical Notes Jun, Labral tear of shoulder, right, subsequent encounter (ICD-10 - S43.431D) [employer] Other 11-14-2023 Evaluation note* Encounter Date Diagnosis [...] pain (ICD-10 - R07.9) r/o cardiac cause [employer] Other 11-07-2023 Evaluation note* Encounter Date Diagnosis [...] to decrease dose and possibly discontinue medication. [employer] Other 11-02-2023 Evaluation note* Encounter Date Diagnosis Assessment Notes Treatment Notes Treatment Clinical Notes Jun, Acute pain of right shoulder (ICD-10 - M25.511) [employer] Other 10-30-2023 Evaluation note* Encounter Date Diagnosis Assessment Notes Treatment Notes Treatment Clinical Notes May, Acute pain of right shoulder (ICD-10 - M25.511) [employer] Other 10-23-2023 Evaluation note* Encounter Date Diagnosis Assessment Notes Treatment Notes Treatment Clinical Notes May, Acute pain of right shoulder (ICD-10 - M25.511) [employer] Other 10-16-2023 Evaluation note* Encounter Date Diagnosis Assessment Notes Treatment Notes Treatment Clinical Notes May, Acute pain of right shoulder (ICD-10 - M25.511) [employer] Other 10-10-2023 Evaluation note* Encounter Date Diagnosis Assessment Notes Treatment Notes Treatment Clinical Notes May, Acute pain of right shoulder (ICD-10 - M25.511) MRI and surgery planning pending. Pt understands this is a controlled substance and to call in 1 week w update on treatment plan. May, Bronchitis (ICD-10 - J40) Finish antibiotic, rest, hydrate Steroids for wheezing. [employer] Other 10-04-2023 Evaluation note* Encounter Date Diagnosis Assessment Notes Treatment Notes Treatment Clinical Notes May, Acute pain of right shoulder (ICD-10 - M25.511) Reviewed [place]AR[place] and discussed short term plan of increase in pain medication. He is due for a refill of the T3s presently. Stop them, replace w norco. Pt understands weekly prescription and will need to d/c after anticipated surgery. [employer] Other 09-12-2023 Evaluation note* Encounter Date Diagnosis [...] office and the ER visit on 04/26 [facility] Other 07-05-2023 Evaluation note* Encounter Date Diagnosis [...] and will need less prn pain med. [employer] Other 06-01-2023 Evaluation note* Encounter Date Diagnosis [...] left shoulder (ICD-10 - M25.512) as above. [employer] Other 04-17-2023 Evaluation note* Encounter Date Diagnosis Assessment Notes Treatment Notes Treatment Clinical Notes Nov, Bronchitis (ICD-10 - J40) [employer] Other 04-11-2023 Evaluation note* Encounter Date Diagnosis Assessment Notes Treatment Notes Treatment Clinical Notes Nov, Disc degeneration, lumbar (ICD-10 - M51.36) Nov, Lumbar radicular pain (ICD-10 - M54.16) [employer] Other 04-07-2023 Evaluation note* Encounter Date Diagnosis [...] quit smoking. Pt verbalizes understanding and agreement. [employer] Other 02-15-2023 Evaluation note* Encounter Date Diagnosis Assessment Notes Treatment Notes Treatment Clinical Notes Sep, Lumbar radicular pain (ICD-10 - M54.16) [employer] Other 01-17-2023 Evaluation note* Encounter Date Diagnosis [...] is outlined on the test result page. [employer] Other 10-20-2022 NoteIndication: Calculus in kidney. 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 [employer] Other 04-26-2022 NotePROCEDURE: XR SHOULDER LT 2V or > COMPARISON: None. HISTORY: Pain of left shoulder joint FINDINGS: BONES:No acute fracture or dislocation. 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 No visible soft tissue swelling. EFFUSION:None visible. OTHER: Negative. IMPRESSION: Mild osteoarthritis Electronically authenticated by: BARBIE MEMBRENO Date: 2021-12-12 15:[address] [place], [place] 2459204-26-2022 Evaluation note* Encounter Date Diagnosis Assessment Notes [...] pain of left shoulder (ICD-10 - M25.512) [facility] [employer] Other 10-08-2021 Evaluation note* Encounter Date Diagnosis [...] as needed for cough. Advised patient that Pelican contains antihistamine and cough suppressant and to be cautious using other OTC cold medications. Patient to follow up with PCP if symptoms do not improve. Immediate eval if SOB, difficulty breathing, chest pain, dizziness, or other concerning symptoms. Patient verbalizes understanding and is agreeable to treatment plan [facility] [employer] Other Evaluation + Plan note No data available for this section [facility] Hospital[facility] noteNo InformationNortWashington Health System [facility] [employer] Other Evaluation note* Diagnosis Onset Date Resolution Status Arthralgia acute Lumbar pain acute Type II diabetes mellitus ac [facility] Work Phone: Evaluation note* Diagnosis Onset Date Resolution Status Arthralgia acute Lumbar pain acute Type II diabetes mellitus ac [place] Bilateral hip pain acute [facility] abnormality acute Mass of left submandibular region [facility] Work Phone: Evaluation note* Diagnosis Onset Date Resolution Status Chronic obstructive pulmonary disease, unspecified acute Esophageal abnormality acute Mass of left submandibular region [facility] Work Phone: Evaluation note* Diagnosis Onset Date Resolution Status 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 Hiatal hernia acute [facility] Work Phone: Evaluation note* Diagnosis Esophageal dysphagia- Primary Dysphagia, pharyngoesophageal phase Neck mass Swelling, mass, or lump in head and neck documented in this encounter [facility] HealthcareEvaluation note* Diagnosis Dysphagia, unspecified type- Primary Black stools Nonspecific abnormal finding in stool contents Gastroesophageal reflux disease, unspecified whether esophagitis present Abnormal esophagram documented in this encounter [facility]* Diagnosis Dysphagia, unspecified type Black stools Nonspecific abnormal finding in stool contents documented in this encounter [facility] general Narrative - Reported* Type Description Date Medical History Asthma Medical History skin cancer-lip Surgical History Left lung biopsy 1977 Surgical History L4 and L5 disc fusion 1984 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 Surgical History carpal tunnel release 2016 Surgical History tonsillectomy Hospitalization History 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 Hospitalization History pneumonia [facility] Other Hospital Discharge instructions No data available for this section [facility] Discharge instructionsAmbulatory Orders* Referral to ENT Time Frame: 03/18/24, Location: None [facility] Work Phone: Hospital Discharge instructionsAmbulatory Orders* Referral to Urology Time Frame: 10/15/24, Location: None [facility] Work Phone: InstructionsNot on filedocumented in this encounter [facility] SystemInstructionsNot on filedocumented in this encounter [facility] SystemInstructionsNot on filedocumented in this encounter [facility] SystemProgress note No data available for this section [facility] HospitalReason for referral (narrative)No reason for referral information availableBarney [facility]'S [facility] Center Work Phone: Summary Purpose Family History No Family History [...] Epigastric abdominal pain (R10.13) Referral Organization [facility] [employer] Referring Provider First Name Jeremy Referring Provider Last Name Sona Referring Provider Specialty [facility] [employer] Referred Organization [facility] Referred Provider Sai Martinez Referred Address ,[place], [id number] Referred Provider Specialty Surgery Referral Priority Routine General Notes Es Camilo 11:38:02 AM >received today, attachments made, notes locked, referral faxed Reason 01/28/23 Access Or tho - B shoulder pain L>R - hopes for injections. Diagnosis 1 Pain in right should er (M25.511) Referral Organization [facility] [employer] [facility] omar Referring Provider First Name Jeremy Referring Provider Last Name Sona Referring Provider [facility] [employer] Referred Organization [facility] Referred Provider Barbie Jesus Referred Address ,[place], [place],[address] Referred Provider Specialty Orthopaedic Surgery Referral Priority [...] in right should er (M25.511) Referral Organization [facility] Mike nelson Referring Provider First Name Jeremy Referring Provider Last Name Sona Referring Provider Specialty [facility] Referred Organization [facility] Referred Provider Barbie Jesus Referred Address ,[place], [place],[address] Referred Provider Specialty Orthopaedic Surgery Referral Priority [...] Admit Date GERD (gastroesophageal reflux disease) D ecember 2023 10:18am Lymphadenopathy July 23, 2024 1 0:18am [...] call back reinier. 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 EPIC DATE CREATED AUTHOR AUTHOR'S ORGANIZ ATION 05/23/2024 [facility] DATE CREATED AUTHOR AUTHOR'S ORGANIZ ATION 05/29/2024 [facility] DATE CREATED AUTHOR AUTHOR'S ORGANIZ ATION 06/12/2024 [facility] DATE CREATED AUTHOR AUTHOR'S ORGANIZ ATION 11/06/2024 [facility] DATE CREATED AUTHOR AUTHOR'S ORGANIZ ATION 11/11/2024 [facility] DATE CREATED AUTHOR AUTHOR'S ORGANIZ ATION 04/11/2025 [facility] Patient Care team informatio n (unrecognized section and content) Team Status: Active Member Role Status Dates Jeremy Magallanes MD Primary Care Provider Active Team Status: Inactive Member Role Status Dates Jeremy Magallaens MD Primary Care Provide r, Attending Provider [...] Provider Active Start : October 23, 2023 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 [place] [address] [place] [id number] PCP - General Family Medicine 01/23/23 Team Status: Inactive Member Role Status Dates Jeremy Magallanes MD Attending Provider Active St art: September 13, 2023 End: September 13, 2023 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 Start Date End Date Jeremy Magallanes MD [address] [facility] [place] [phone] Referring Family Medicine 05/12/24 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 Start Date End Date Jeremy Magallanes MD [address] [place] [phone] PCP - General Family Medicine 01/23/23 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 Start Date End Date Jeremy Magallanes MD [address] [place] [phone] PCP - General Family Medicine 01/23/23 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 Start Date End Date Jeremy Magallanes MD [address] [place] [phone] PCP - General Family Medicine 01/23/23 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 Start Date End Date Jeremy Magallanes MD [address] [facility] [place] [address] PCP - General Family Medicine 06/03/19 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 Start Date End Date Jeremy Magallanes MD [address] [facility] [place] [address] PCP - General Family Medicine 06/03/19 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 Start Date End Date Jeremy Magallanes MD [address] [facility] [place] [address] PCP - General Family Medicine 06/03/19 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 Start Date End Date Jeremy Magallanes MD [address] [facility] [place] [address] PCP - General Family Medicine 06/03/19 Team [...] 2025 Team Status: Inactive Member Role Status Gloria [...] or prosecute any alcohol or drug abuse patient.[facility] FOR RECORDS PERTAINING TO PATIENTS [...] BE BASED ON THE PRIMARY CLINICAL RECORDS. [facility] provides no warranty or guarantee of the accuracy or completeness of information in this document.
--- NOTE | 2025-04-14 07:58 | P.CN_ITS ---
Consult Note: HPI Data of Consult Patient: known to practice within the last 3 years Requesting Physician: Janneth Villalta NP Primary Care Provider: Hannah Gallo MD Consult Narrative Reason for consult: right flank and thoracic pain Narrative: Nicholas Ziegler a pleasant 64 year old male presents for evaluation of chronic right middle and low back pain, has had persistent lumbar and thoracic pain >12 months unresponsive to >6 weeks of PT/HEP, heat, ice, tylenol, and allergy to NSAIDs. Pain today 5/10 stabbing aching, increasing with standing, walking, pushing, pulling, pending, lifting. pain improved mildly with sleep, tylenol #3 and flexeril. denies medications side effects. recently underwent thoracic MRI with results below as well as right T10,11 T11,12 TFESI with significant ongoing relief. Pt noting problem area has decreased in size but is still persistent along right ribcage and slightly higher than prior. cc:: CC: Janneth Villalta NP [facility] Medical History Melanoma ?C43.9 - Malignant melanoma of skin, unspecified (ICD-10) Tobacco user ?Z72.0 - Tobacco use (ICD-10) Type 2 diabetes mellitus with hyperglycemia ?E11.65 - Type 2 diabetes mellitus with hyperglycemia (ICD-10) Acute exacerbation of chronic obstructive pulmonary disease (COPD) ?J44.1 - Chronic obstructive pulmonary disease with (acute) exacerbation (ICD-10) Lumbar degenerative disc disease ?M51.36 - Other intervertebral disc degeneration, lumbar region (ICD-10) Influenza ?J11.1 - Influenza due to unidentified influenza virus with other respiratory manifestations (ICD-10) Acute bronchospasm ?J98.01 - Acute bronchospasm (ICD-10) Postoperative pain, acute, shoulder ?G89.18 - Other acute postprocedural pain (ICD-10) ?M25.519 - Pain in unspecified shoulder (ICD-10) Fever ?R50.9 - Fever, unspecified (ICD-10) Acute pain of right shoulder ?M25.511 - Pain in right shoulder (ICD-10) Rotator cuff arthropathy of right shoulder ?M12.811 - Other specific arthropathies, not elsewhere classified, right shoulder (ICD-10) Diabetes ?E11.9 - Type 2 diabetes mellitus without complications (ICD-10) COPD (chronic obstructive pulmonary disease) ?J44.9 - Chronic obstructive pulmonary disease, unspecified (ICD-10) Surgical History H/O colonoscopy ?Z98.890 - Other specified postprocedural states (ICD-10) History of carpal tunnel release ?Z98.890 - Other specified postprocedural states (ICD-10) H/O lumbosacral spine surgery ?Z98.890 - Other specified postprocedural states (ICD-10) S/P right rotator cuff repair ?Z98.890 - Other specified postprocedural states (ICD-10) Family History Other Family history of COPD (chronic obstructive pulmonary disease) Family history of cancer Family history of hypertension Social History Within the past year, how often did you have a drink containing alcohol: never Score interpretation: A score less than 4 is consistent with normal alcohol consumption. Smoking status: Current every day smoker Non-prescribed substance use: denies use Previous occupational history: retired Highest level of school completed/degree received: GED or equivalent Are you now , , , , never or living with a partner: In a typical week, how many times do you talk on the telephone with family, friends, or neighbors: 3 or more times per week How often do you get together with friends or relatives: 3 or more times per week How often do you attend tenriism or methodist services: never Do you belong to any clubs or organizations such as tenriism groups unions, fraternal or athletic groups, or school groups: no Total score: 2 Score interpretation: A score of greater than or equal to 2 indicates the lowest level of social isolation. Little interest or pleasure in doing things: not at all Feeling down, depressed, or hopeless: not at all Feel stressed/tense/nervous/anxious/difficulty sleeping: not at all Do you think of yourself as: straight/heterosexual Gender Identity: male Meds Home Medications and Allergies Home Medications ?Medication ?Instructions ?Recorded ?Confirmed ?Type glipizide 5 mg-metformin 500 mg 1 tab PO BID 08/23/23 04/05/25 History tablet lancets (Accu-Chek Fastclix Lancet 09/08/23 09/08/23 History Drum) albuterol sulfate 90 mcg/actuation 2 puff inhalation Q 6H PRN 06/01/24 04/05/25 History aerosol inhaler shortness of breath or wheez ing acetaminophen 300 mg-codeine 30 mg See Rx Instructions .Route 09/09/24 04/05/25 Rx tablet .COMPLEX PRN pain #180 tabs ondansetron 4 mg disintegrating mg 04/05/25 History tablet Allergies Allergy/AdvReac Type Severity Reaction Status Date / Time fentanyl Allergy Intermediate Hives Verified 04/05/25 09:13 ofloxacin Allergy Intermediate HIVES Verified 04/05/25 09:13 olodaterol (From Stiolto Allergy Intermediate SHORTNESS Verified 04/05/25 09:13 Respimat) OF BREATH tiotropium (From Stiolto Allergy Intermediate SHORTNESS Verified 04/05/25 09:13 Respimat) OF BREATH zafirlukast Allergy Intermediate Hives Verified 04/05/25 09:13 Iodinated Contrast Media Allergy Unknown Unknown Verified 04/05/25 09:13 ibuprofen (From Motrin) AdvReac Mild Hives Verified 04/05/25 09:13 Exam Constitutional Documenting provider has reviewed patient's vital signs: yes Common normals: no apparent distress, oriented x3, healthy appearing, alert and well nourished General appearance: cooperative HENDC Common normals: normocephalic, hearing grossly normal bilaterally and moist oral mucous membranes Head and scalp: normocephalic Eye Common normals: PERRL Pupil: PERRL Neck & C-Spine Common normals: full ROM General: normal visual inspection Chest Common normals: inspection of chest normal Respiratory Common normals: normal respiratory effort, no retractions and no use of accessory muscles Back & Pelvis Thoracic spine/upper back: pain with ROM and thoracic spinal tenderness Lumbar spine/lower back: ROM limited, pain with ROM and straight leg raise negative bilaterally Sacroiliac joints: SI joints normal Other: sensation intact BLE strength 5/5 in BLE intercostal neuralgia noted to right T9,10,11,12 Extremity Common normals: normal to inspection and full ROM Neuro Common normals: oriented x3 Sensorium/orientation: alert Psych Common normals: mental status grossly normal, thought process normal, cooperative, affect normal, speech normal and activity/motor behavior normal Speech: normal speech Thought process: normal thought process Results Imaging thoracic mri: Attestation: I have reviewed the pertinent imaging results. Radiologist's impression: The thoracic vertebral body heights, alignment and bone marrow signal is unremarkable. The thoracic cord demonstrates normal signal and morphology. Mild hypertrophic changes and ligamentum flavum and facet degeneration notably T4-T5 and at T11-T12. This results in mild canal narrowing at T11-T12. Otherwise no significant disc disease, disc protrusion, central canal or neural foraminal narrowing identified elsewhere. Paraspinal soft tissues are unremarkable. Additional Findings Additional findings: If on a controlled substance or opioids, I have checked an [place]AR[place] report on this patient and there are no aberrancies noted in the prescribing history.??If on a controlled substance or opioid a drug screen was completed and reviewed within the last year, and if there has not been a drug screen completed we ordered one today to monitor higher risk, state monitored pain medication use. As part of providing excellent, safe, comprehensive care, the following was completed at our patient's visit: 1. A medication reconciliation and review to ensure accurate knowledge of current/active medications, including asking our patients to inform us about any [id number] medications or herbal remedies/nutritional supplements/alternative remedies. 2. A review to specifically ensure our patients have had annual screening for screening for depression, screening for tobacco use, and screening for unhealthy alcohol use. For concerning screenings had a discussion with the patient, provided patient education, and recommended follow-up with primary care provider when appropriate. If patient noted with a risk of falling, they received education on strength, gait, and balance training to prevent future risk of f alling. Portions of this note may have been carried over from the previous visit and updated as appropriate. Please note this office utilizes paper charting in addition to the electronic medical record. A list of current medications, vitals, and PMH is available there as the clinical staff outside of myself do not have access to [employer] charting during the clinic day operations. As part of providing quality comprehensive care the current medications, vitals, and PMH were reviewed in the paper chart. Assessment and Plan Assessment and Plan (1) Intercostal neuralgia: Assessment and Plan: The patient has had over 3 months of moderate to severe right flank and thoracic pain with functional impairment and inadequate response to conservative care including NSAIDS (unless there are contraindication such as concurrent blood thinners), multiple oral or topical pain medications, and home exercise program/physical therapy.? Patient has completed >6 weeks of guided home exercise program and/or formal physical therapy program without relief of their symptoms.? I have reviewed the imaging of the thoracic and lumbar spine and no red flags were identified.? The Oswestry Disability Index was completed, and the patient scored a 38%.? The patient noted the following:?? moderate to severe pain impacting ADLs, sitting, standing, sleeping, social life, travel We discussed the risks and benefits of the procedure with the patient, and we are NOT planning on using sedation as outlined in the guidelines from Medicare unless there is a documented reason that sedation would be strongly recommended.?? ?The procedure will be completed with fluoroscopic guidance.? (2) Thoracic radiculopathy: (3) Right flank pain, chronic: (4) Lumbar stenosis with neurogenic claudication: (5) Failed back syndrome: (6) Sacroiliitis: (7) Lumbar spondylosis: (8) Chronic prescription opiate use: Assessment and Plan: I feel these medications are improving the patient's quality of life and allow them to tolerate activities of daily living as well as participate in recreational activity.? The patient does not report intolerable side effects. The patient is NOT opioid naive and non-pharmacologic and non-opioid treatment has failed to significantly relieve the patient's pain and improve functionality. The patient has a diagnosis that is related to a somatic or visceral pain etiology. ? ?? I reviewed with the patient the potential risks and side effects with the use of? opioid medications including but not limited to respiratory depression,? sedation, and even . Within the last 12 months I have verified the patient has access to naloxone should? these effects occur. The patient was advised to let? their family know they had Naloxone in case they would need to administer? the medication. I advised the patient to avoid the use of any other? sedation substances including alcohol, THC, and benzodiazepines while? taking opioid medications due to the risk of compounding side effects and? detrimental outcomes. within the last 12 months I have reviewed the SUPERVISOR OF OPERATIONS, pain treatment agreement and urine drug screen.? ?? A drug screen was completed within the last year, and no aberrancies were noted regarding their use of controlled substances. The patient understands they are subject to the terms and conditions of the pain contract that they have signed. ? ?? I have checked an OARRS report on this patient today and there are no aberrancies noted in the prescribing history.? Plan right T9,10 T10,11 intercostal nerve block x1 in consideration of RFA, higher target levels per pt request may consider right T10,11 T11,12 if fails to benefit continue current medications, risks vs benefits reviewed continue HEP as tolerated f/u after injection
== END 2025-04-14 07:40 | disposition home or self-care (01) ==
LOC: PM 07:40
PROVIDERS: PCP Family Medicine; Visit Provider Nurse Practitioner
DX: M54.14 Radiculopathy, thoracic region (principal); R10.31 Right lower quadrant pain; M48.062 Spinal stenosis, lumbar region with neurogenic claudication; M96.1 Postlaminectomy syndrome, not elsewhere classified; M46.1 Sacroiliitis, not elsewhere classified; M47.816 Spondylosis without myelopathy or radiculopathy, lumbar region; Z79.891 Long term (current) use of opiate analgesic
CPT/HCPCS: G0463

== ENCOUNTER 2025-04-26 12:46 | Day surgery (SDC) | payer MEDICARE, SELFPAY ==
[2025-04-26 06:45] VITALS: BP 127/76; PULSE 85; TEMP 36.6; O2SAT 95
--- OUTSIDE RECORDS SUMMARY | 2025-04-26 12:59 | XMS_ITS | CCD ---
Author Organization [facility] Care Team Providers Care Special Agent In Charge Name Role Phone Ronnie Kesha Unavailable Chepe Harriet Unavailable Jeremy Magallanes Unavailable SONA, DR JEREMY Jovel Admitting Unavailable MAGALLANES, DR JEREMY Jovel Attending Unavailable MAGALLANES, DR JEREMY Jovel Primary Care Unavailable MAGALLANES, DR JEREMY Jovel Consulting Unavailable TAVERASRUBI Consulting Unavailable OLEXA, KESHA Admitting Unavailable OLEXA, KESHA Attending Unavailable MAGALLANES, DR JEREMY Jovel Primary Care Unavailable [place], DR BARBIE Goldberg Consulting Unavailable OLEXA, KESHA [...] Physician Jeremy Magallanes MD Primary Care Provider [phone] WILLIE, BARBIE Tellez Attending Unavailable POCOS, BARBIE Tellez Referring Unavailable POCOS, BABRIE Tellez Attending Unavailable MALATHI SANCHEZ Attending Unavailable [...] Care Provider Jeremy Magallanes MD Attending Provider [phone] Arnoldo Somers MD Attending Provider Giedalyson JACOB, Andrius Miranda Attending Unavailable Giedraitis , Andrius Vytautchela Attending Unavailable Giedraitis , Andrius Vytautas Attending Unavailable Giedraitis , Andrius Vytautchela Attending Unavailable Allergies Allergy Classification Reported Allergen(s) Allergy Type Date of Onset Reaction(s) Facility (20 sources) Ibuprofen Drug Allergy [facility] [employer] Other (20 sources) olodaterol / tiotropium Drug Allergy shortness of breath [facility] [employer] Other (20 sources) CT Scan dye Propensity to adverse reactions [facility] [employer] Other (13 sources) Ibuprofen; Translations: [IBUPROFEN] Drug Allergy 08-19-18 80 hiv [facility] (2 sources) Iodine (And Iodine Containting Drugs) Drug allergy (disorder) 09-07-19 16 [facility] (1 source) NSAIDs Drug allergy (disorder) [facility] (20 sources) fentaNYL Drug Allergy 12-05-19 24 Unknown, [facility] (12 sources) Ibuprofen Drug Allergy 01-15-20 15 Rash, [facility] (20 sources) Ofloxacin Drug Allergy 12-05-19 24 Unknown, [facility] (3 sources) zafirlukast Drug Allergy 01-15-20 15 Unknown [employer] Other (20 sources) Zafirlukast *ANTIASTHMATIC AND BRONCHODILATOR AGEN Propensity to adverse reactions Unknown [employer] Other (20 sources) Ibuprofen & Diet Manage Prod *ANALGESICS - ANTI-IN Propensity to adverse reactions Unknown [employer] Other (3 sources) Allergies Reconciled Propensity to adverse reactions Unknown [employer] Other (20 sources) Iodinated contrast media (substance) Drug allergy 06-03-20 19 Rash, [facility] [employer] Other (3 sources) patient allergy list reviewed by nurse or physicia Propensity to adverse reactions 10-05-19 16 Comment:Done [employer] Other (14 sources) olodaterol Drug Allergy 12-05-19 24 shortness of breath [facility] (14 sources) tiotropium Drug Allergy 12-05-19 24 shortness of breath [facility] (11 sources) Iodinated Contrast Media; Translations: [IODINATED CONTRAST MEDIA] Allergy to substance 06-03-20 19 [facility] (10 sources) Ibuprofen & Diet Manage Prod * Allergy to substance 12-04-19 [facility] Comment on above: Free Text Allergy: I buprofen & Diet Manage Prod *ANALGESICS - ANTI-IN (10 sources) Zafirlukast *ANTIASTHMATIC AND Allergy to substance 12-04-19 [facility] Comment on above: Free Text Allergy: Z afirlukast *ANTIASTHMATIC AND BRONCHODILATOR AGEN (3 sources) DULoxetine Drug Allergy 04-07-20 GI intolerance [facility] (2 sources) cefdinir Drug Allergy 01-22-20 Vomiting [facility] Comment on above: nausea, vomiting Medications Current [...] Active take 2 tablets by mo [facility] every four hours as needed acetaminophen-codeine [...] as needed Orally every 6 hrs Active [id number] 200 actuat albuterol 0.09 mg/actuat metered dose [...] 07-19-2023 take 2 tablets by mo [facility] in the morning glipiZIDE-metFORMIN (Metaglip) 5-500 [...] 11-23-2022 take 2 tablets by mo [facility] every twenty-four hours predniSONE 20 MG [...] days May, Active Start: 2023 HYDROcodone-ac etaminophen ([place]) 10-325 MG tablet Start: 2023 take 1 [...] 30 mg oral tablet (5 sources) Uncompetitive N-brygzb-T-aspartat e Receptor Antagonist, Sigma-1 Agonist Start: 05-26-2021 take 1 tablet by mouth every eight hours Stendal DMT 30-30 MG 1 tablet Orally every [...] Start: 02-20-2023 take 1 capsule by [facility] every twenty-four hours Cymbalta 60 MG [...] 10-05-2015 Episodic Other aftercare (1 source) Other extermination supervisor (current) drug therapy; Translations: [OTH HALFWAY CURRENT [...] Lactate [Moles/Vol] 2.6 mmol/L Critically high 0.4-2.0 [facility] Comment on above: RESULTS CALLED TO GAURI SRINIVASAN RN at 0220 Basophils Auto (Bld) [#/Vol] on 12-22-2024 Basophils (Bld) [#/Vol] Automated basophil count 0.0-0.1 [facility] Basophils (Bld) [#/Vol] 0.0 10 3/uL 0.0-0.1 [facility] Basophils/100 WBC Auto (Bld) on 12-22-2024 Basophils/100 WBC (Bld) Automated basophil % 0.2-2.0 [facility] Basophils/100 WBC (Bld) 0.6 % 0.2-2.0 [facility] Basophils/100 WBC Manual cnt (Bld)on 12-22-2024 Basophils/100 WBC (Bld) Basophils/100 leukocytes in Blood by Manual count Low 0.2-2.0 [facility] Basophils/100 WBC (Bld) 0.0 % Low 0.2-2.0 [facility] Eosinophils/100 WBC Auto (Bl d)on 12-22-2024 Eosinophils/100 WBC (Bld) Automated eosinophil % 0.9-7.0 [facility] Eosinophils/100 WBC (Bld) 2.0 % 0.9-7.0 [facility] Eosinophils/100 WBC Manual c nt (Bld)on 12-22-2024 Eosinophils/100 WBC (Bld) Eosinophils/100 leukocytes in Blood by Manual count Low 0.9-7.0 [facility] Eosinophils/100 WBC (Bld) 0.0 % Low 0.9-7.0 [facility] Erythrocyte distribution wid th Auto (RBC) [Ratio]on 12-22-2024 Erythrocyte distribution width (RBC) [Ratio] 13.5 % 11.0-15.0 [facility] Estimated glomerular filtrat ion rate (GFR) non- Americanon 12-22-2024 GFR/1.73 sq M.predicted among non-blacks MDRD (S/P/Bld) [Vol rate/Area] Estimated glomerular filtration rate (GFR) non- Low >=60 mL/min/1.73m 2 [facility] GFR/1.73 sq M.predicted among non-blacks MDRD (S/P/Bld) [Vol rate/Area] 59 mL/min/{1.73_m2} Low >=60 mL/min/1.73m 2 [facility] Globulin Calc (S) [Mass/Vol] on 12-22-2024 Globulin (S) [Mass/Vol] Serum globulin measurement by calculation (mass/volume) [facility] Globulin (S) [Mass/Vol] 3.6 g/dL [facility] Glucose mean value [Mass/vol ume] in Blood Estimated from glycated hemoglobinon 12-22-2024 Average glucose Estimated from glycated hemoglobin (Bld) [Mass/Vol] Glucose mean value [Mass/volume] in Blood Estimated from glycated hemoglobin [facility] Average glucose Estimated from glycated hemoglobin (Bld) [Mass/Vol] 192 mg/dL [facility] Hematocrit Auto (Bld) [Volum e fraction]on 12-22-2024 Hematocrit (Bld) [Volume fraction] 56.3 % High 42.0-54.0 [facility] Hemoglobin A1c percentageon 12-22-2024 HbA1c (Bld) [Mass fraction] Hemoglobin A1c percentage High 4.5-6.2 [facility] Comment on above: ADA RECOMMENDED LIMI T 4.0 - 6.0ADA THERAPEUTIC TARGET < 7.0ACTION SUGGESTED> 7.0 HbA1c (Bld) [Mass fraction] 8.3 % High 4.5-6.2 [facility] Comment on above: ADA RECOMMENDED LIMI T 4.0 - 6.0ADA THERAPEUTIC TARGET < 7.0ACTION SUGGESTED> 7.0 Hemoglobin [Mass/volume] in Bloodon 12-22-2024 Hemoglobin (Bld) [Mass/Vol] 18.9 g/dL High 14.0-18.0 [facility] Laboratory - Chemistry and C hemistry - challengeon 12-22-2024 Albumin [Mass/Vol] 4.3 g/dL 3.4-5.0 [facility] ALP [Catalytic activity/Vol] 121 U/L High 46-116 [facility] ALT [Catalytic activity/Vol] 46 U/L 16-63 [facility] AST [Catalytic activity/Vol] 17 U/L 15-37 [facility] Bilirubin [Mass/Vol] 0.4 mg/dL 0.2-1.0 [facility] Calcium [Mass/Vol] 9.7 mg/dL 8.5-10.1 [facility] Chloride [Moles/Vol] 99 mmol/L 98-107 [facility] CO2 [Moles/Vol] 21.7 mmol/L 21.0-32.0 [facility] Creatinine [Mass/Vol] 1.24 mg/dL 0.70-1.30 [facility] GFR/1.73 sq M.predicted MDRD (S/P/Bld) [Vol rate/Area] mL/min/{1.73_m2} >=60 mL/min/1.73m 2 [facility] Glucose [Mass/Vol] 278 mg/dL High 74-106 [facility] Lactate [Moles/Vol] 2.3 mmol/L Critically high 0.4-2.0 [facility] Comment on above: RESULTS CALLED TO DIONE CABALLERO RN at 0009 Lipase [Catalytic activity/Vol] 31.0 U/L 16.0-77.0 [facility] Potassium [Moles/Vol] 4.6 mmol/L 3.5-5.1 [facility] Protein [Mass/Vol] 7.9 g/dL 6.4-8.2 [facility] Sodium [Moles/Vol] 133 mmol/L Low 136-145 [facility] Urea nitrogen [Mass/Vol] 15.0 mg/dL 7.0-18.0 [facility] Urea nitrogen/Creatinine [Mass ratio] 12.1 mg/mg [facility] TSH Qn 1.532 m[IU]/L 0.358-3.740 [facility] Laboratory - Hematology and Cell countson 12-22-2024 Lymphocytes/100 WBC (Bld) 1.0 % Low 20.5-60.0 [facility] Monocytes/100 WBC (Bld) 7.0 % 1.7-12.0 [facility] Immature granulocytes/100 WBC (Bld) 0.2 % 0.0-0.5 [facility] Leukocytes [#/volume] correc jean claude for nucleated erythrocytes in Blood by Automated counon 12-22-2024 WBC corrected for nucl RBC Auto (Bld) [#/Vol] 14.4 10 3/uL High 4.0-11.0 [facility] Lymphocytes Auto (Bld) [#/Vo l]on 12-22-2024 Lymphocytes (Bld) [#/Vol] Lymphocytes [#/volume] in Blood by Automated count 1.2-3.8 [facility] Lymphocytes (Bld) [#/Vol] 2.1 10 3/uL 1.2-3.8 [facility] Lymphocytes/100 WBC Auto (Bl d)on 12-22-2024 Lymphocytes/100 WBC (Bld) Lymphocytes/100 leukocytes in Blood by Automated count 20.5-60.0 [facility] Lymphocytes/100 WBC (Bld) 31.7 % 20.5-60.0 [facility] MCH Auto (RBC) [Entitic mass ]on 12-22-2024 MCH (RBC) [Entitic mass] 29.7 pg 25.9-34.0 [facility] MCHC Auto (RBC) [Mass/Vol]on 12-22-2024 MCHC (RBC) [Mass/Vol] 33.6 g/dL 29.9-35.2 [facility] MCV Auto (RBC) [Entitic vol] on 12-22-2024 MCV (RBC) [Entitic vol] 88.5 fL 80.0-94.0 [facility] Microalbumin [Mass/volume] i n Urineon 12-22-2024 Albumin DL <= 20 mg/L (U) [Mass/Vol] Microalbumin [Mass/volume] in Urine <=30.0 [facility] Albumin DL <= 20 mg/L (U) [Mass/Vol] 2.0 mg/dL <=30.0 [facility] Monocytes Auto (Bld) [#/Vol] on 12-22-2024 Monocytes (Bld) [#/Vol] Automated blood monocyte count 0.3-0.8 [facility] Monocytes (Bld) [#/Vol] 0.7 10 3/uL 0.3-0.8 [facility] Monocytes/100 WBC Auto (Bld) on 12-22-2024 Monocytes/100 WBC (Bld) Automated monocyte % 1.7-12.0 [facility] Monocytes/100 WBC (Bld) 10.7 % 1.7-12.0 [facility] Neutrophils Auto (Bld) [#/Vo l]on 12-22-2024 Neutrophils (Bld) [#/Vol] Neutrophils [#/volume] in Blood by Automated count 1.4-6.5 [facility] Neutrophils (Bld) [#/Vol] 3.6 10 3/uL 1.4-6.5 [facility] Neutrophils/100 WBC Auto (Bl d)on 12-22-2024 Neutrophils/100 WBC (Bld) Automated neutrophil % 43.0-75.0 [facility] Neutrophils/100 WBC (Bld) 54.8 % 43.0-75.0 [facility] No Panel Informationon 12-22 Absolute Basophils (Manual) 0.00 10 3/uL 0.00-0.10 [facility] Eosinophils # (Manual) 0.00 10 3/uL 0.00-0.70 [facility] Lymphocytes # (Manual) 0.14 10 3/uL Low 1.20-3.80 [facility] Monocytes # (Manual) 1.00 10 3/uL High 0.30-0.80 [facility] Segmented Neutrophils # (Manual) 13.24 10 3/uL High 1.4-6.5 [facility] Troponin I High Sensitivity <4.0 pg/mL Low 4.0-76.1 [facility] Comment on above: CUT-OFF POINTS HAVE BEEN [...] Eosinophils # (Auto) 0.1 10 3/uL 0.0-0.7 [facility] Immature Granulocyte # (Auto) 0.01 10 3/uL 0.00-0.03 [facility] Prostate Specific Antigen Screen 0.89 ng/mL <=4.00 [facility] Urine Random Creatinine 79.28 mg/dL 20.00-300.00 [facility] Platelet mean volume Auto (B ld) [Entitic vol]on 12-22-2024 Platelet mean volume (Bld) [Entitic vol] 9.4 fL Low 9.5-13.5 [facility] Platelets Auto (Bld) [#/Vol] on 12-22-2024 Platelets (Bld) [#/Vol] 319 10 3/uL 150-450 [facility] RBC Auto (Bld) [#/Vol]on RBC (Bld) [#/Vol] 6.36 10 6/uL High 4.70-6.10 [facility] Segmented neutrophils/100 WB C Manual cnt (Bld)on 12-22-2024 Segmented neutrophils/100 WBC (Bld) Manual blood segmented neutrophils/100 leukocytes High 43.0-75.0 [facility] Segmented neutrophils/100 WBC (Bld) 92.0 % High 43.0-75.0 [facility] Serum or plasma albumin/glob ulin mass ratioon 12-22-2024 Albumin/Globulin [Mass ratio] Serum or plasma albumin/globulin mass ratio [facility] Albumin/Globulin [Mass ratio] 1.2 {ratio} [facility] Serum or plasma anion gap de terminationon 12-22-2024 Anion gap [Moles/Vol] Serum or plasma anion gap determination [facility] Anion gap [Moles/Vol] 16.9 mmol/L [facility] Urine microalbumin/creatinin e mass ratioon 12-22-2024 Albumin/Creatinine DL <= 20 mg/L (U) [Mass ratio] Urine microalbumin/creatin ine mass ratio 0.0-29.9 [facility] Comment on above: NO MICROALBUMINURIA 0-29 MG/GCLINICAL MICROALBUMINURIA 30-300 MG/GMACROALBUMINURIA >300 MG/G Albumin/Creatinine DL <= 20 mg/L (U) [Mass ratio] 25.2 mg/g 0.0-29.9 [facility] Comment on above: NO MICROALBUMINURIA 0-29 MG/GCLINICAL MICROALBUMINURIA 30-300 MG/GMACROALBUMINURIA >300 MG/G CHEMISTRYOrdered By: Sonia Brandt on 11-04-2024 HbA1c (Bld) [Mass fraction] 9.5 % High <=5.9% [facility] Chem[employer]SS [id number] 11-04-2024 HbA1c (Bld) [Mass fraction] 9.5 % High <=5.9 [facility] Comment on above: Performed By: #### [id number] #### [facility] Laboratory [address] [place] [address] Basophils Auto (Bld) [#/Vol] on 10-11-2024 Basophils (Bld) [#/Vol] Automated basophil count 0.0-0.1 [facility] Basophils/100 WBC Auto (Bld) on 10-11-2024 Basophils/100 WBC (Bld) Automated basophil % 0.2-2.0 [facility] Eosinophils/100 WBC Auto (Bl d)on 10-11-2024 Eosinophils/100 WBC (Bld) Automated eosinophil % 0.9-7.0 [facility] Erythrocyte distribution wid th Auto (RBC) [Ratio]on 10-11-2024 Erythrocyte distribution width (RBC) [Ratio] Erythrocyte distribution width [Ratio] by Automated count 11.0-15.0 [facility] Estimated glomerular filtrat ion rate (GFR) non- Americanon 10-11-2024 GFR/1.73 sq M.predicted among non-blacks MDRD (S/P/Bld) [Vol rate/Area] Estimated glomerular filtration rate (GFR) non- >=60 mL/min/1.73m 2 [facility] Globulin Calc (S) [Mass/Vol] on 10-11-2024 Globulin (S) [Mass/Vol] Serum globulin measurement by calculation (mass/volume) [facility] Hematocrit Auto (Bld) [Volum e fraction]on 10-11-2024 Hematocrit (Bld) [Volume fraction] Hematocrit [Volume Fraction] of Blood by Automated count 42.0-54.0 [facility] Hemoglobin [Mass/volume] in Bloodon 10-11-2024 Hemoglobin (Bld) [Mass/Vol] Hemoglobin [Mass/volume] in Blood 14.0-18.0 [facility] Laboratory - Chemistry and C hemistry - challengeon 10-11-2024 Albumin [Mass/Vol] 3.5 g/dL 3.4-5.0 [facility] ALP [Catalytic activity/Vol] 102 U/L 46-116 [facility] ALT [Catalytic activity/Vol] 39 U/L 16-63 [facility] AST [Catalytic activity/Vol] 13 U/L Low 15-37 [facility] Bilirubin [Mass/Vol] 0.2 mg/dL 0.2-1.0 [facility] Calcium [Mass/Vol] 9.1 mg/dL 8.5-10.1 [facility] Chloride [Moles/Vol] 102 mmol/L 98-107 [facility] CO2 [Moles/Vol] 28.4 mmol/L 21.0-32.0 [facility] Creatinine [Mass/Vol] 0.97 mg/dL 0.70-1.30 [facility] GFR/1.73 sq M.predicted MDRD (S/P/Bld) [Vol rate/Area] mL/min/{1.73_m2} >=60 mL/min/1.73m 2 [facility] Glucose [Mass/Vol] 317 mg/dL High 74-106 [facility] Potassium [Moles/Vol] 4.3 mmol/L 3.5-5.1 [facility] Protein [Mass/Vol] 6.7 g/dL 6.4-8.2 [facility] Sodium [Moles/Vol] 136 mmol/L 136-145 [facility] Urea nitrogen [Mass/Vol] 14.0 mg/dL 7.0-18.0 [facility] Urea nitrogen/Creatinine [Mass ratio] 14.4 mg/mg [facility] Laboratory - Hematology and Cell countson 10-11-2024 Immature granulocytes/100 WBC (Bld) 0.2 % 0.0-0.5 [facility] Leukocytes [#/volume] correc jean claude for nucleated erythrocytes in Blood by Automated counon 10-11-2024 WBC corrected for nucl RBC Auto (Bld) [#/Vol] Leukocytes [#/volume] corrected for nucleated erythrocytes in Blood by Automated coun 4.0-11.0 [facility] Lymphocytes Auto (Bld) [#/Vo l]on 10-11-2024 Lymphocytes (Bld) [#/Vol] Lymphocytes [#/volume] in Blood by Automated count 1.2-3.8 [facility] Lymphocytes/100 WBC Auto (Bl d)on 10-11-2024 Lymphocytes/100 WBC (Bld) Lymphocytes/100 leukocytes in Blood by Automated count 20.5-60.0 [facility] MCH Auto (RBC) [Entitic mass ]on 10-11-2024 MCH (RBC) [Entitic mass] MCH [Entitic mass] by Automated count 25.9-34.0 [facility] MCHC Auto (RBC) [Mass/Vol]on 10-11-2024 MCHC (RBC) [Mass/Vol] MCHC [Mass/volume] by Automated count 29.9-35.2 [facility] MCV Auto (RBC) [Entitic vol] on 10-11-2024 MCV (RBC) [Entitic vol] MCV [Entitic volume] by Automated count 80.0-94.0 [facility] Monocytes Auto (Bld) [#/Vol] on 10-11-2024 Monocytes (Bld) [#/Vol] Automated blood monocyte count 0.3-0.8 [facility] Monocytes/100 WBC Auto (Bld) on 10-11-2024 Monocytes/100 WBC (Bld) Automated monocyte % 1.7-12.0 [facility] Neutrophils Auto (Bld) [#/Vo l]on 10-11-2024 Neutrophils (Bld) [#/Vol] Neutrophils [#/volume] in Blood by Automated count 1.4-6.5 [facility] Neutrophils/100 WBC Auto (Bl d)on 10-11-2024 Neutrophils/100 WBC (Bld) Automated neutrophil % 43.0-75.0 [facility] No Panel Informationon 10-11 Eosinophils # (Auto) 0.2 10 3/uL 0.0-0.7 [facility] Immature Granulocyte # (Auto) 0.02 10 3/uL 0.00-0.03 [facility] Platelet mean volume Auto (B ld) [Entitic vol]on 10-11-2024 Platelet mean volume (Bld) [Entitic vol] Platelet mean volume [Entitic volume] in Blood by Automated count Low 9.5-13.5 [facility] Platelets Auto (Bld) [#/Vol] on 10-11-2024 Platelets (Bld) [#/Vol] Platelets [#/volume] in Blood by Automated count 150-450 [facility] RBC Auto (Bld) [#/Vol]on RBC (Bld) [#/Vol] Erythrocytes [#/volume] in Blood by Automated count 4.70-6.10 [facility] Serum or plasma albumin/glob ulin mass ratioon 10-11-2024 Albumin/Globulin [Mass ratio] Serum or plasma albumin/globulin mass ratio [facility] Serum or plasma anion gap de terminationon 10-11-2024 Anion gap [Moles/Vol] Serum or plasma anion gap determination [facility] Estimated glomerular filtrat ion rate (GFR) non- Americanon 08-26-2024 GFR/1.73 sq M.predicted among non-blacks MDRD (S/P/Bld) [Vol rate/Area] Estimated glomerular filtration rate (GFR) non- >=60 mL/min/1.73m 2 [facility] Laboratory - Chemistry and C hemistry - challengeon 08-26-2024 Creatinine [Mass/Vol] 1.02 mg/dL 0.70-1.30 [facility] GFR/1.73 sq M.predicted MDRD (S/P/Bld) [Vol rate/Area] mL/min/{1.73_m2} >=60 mL/min/1.73m 2 [facility] EGDon 06-03-2024 [facility] No Panel InformationOrdered By: Rosalia Shea on 06-03-2024 [facility] No Panel InformationOrdered By: Bill Henry on 06-03-2024 Miscellaneous Pathology Test See comment [facility] Comment on above: See report. Scanned copy available in EMR. No Panel Informationon 06-03 Helicobacter pylori Urease Test Negative [facility] Pathology Request for Lab Co rpon 06-03-2024 Pathology Request for Lab Raymond Normal [facility] Comment on above: Order Comment: PATHO LOGY GI SPECIMEN Result Comment: See report. Scanned copy available in EMR. PERFORMED BY: [place] [address] PATHOLOGIST PACK ROOM OPERATOR JON PONCE M.D. Performed By: #### P ATH TO [facility] #### [address] [facility]14[id number] NICHOLAS CRAIG ([id number]) 1960 M Date Time Provider Department 05/14/24 AMEYA MERZA [id number] During your visit today, we recorded the following information about you: Keily Martines 05/14/2024 1:11 PM Signed Referral was sent from [facility] for new consult with Dr Meraz Please see below and advise Vivian Morley 05/15/2024 11:54 AM Addendum Consult from Dr. 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] Problem List As Of Date: 05/14/2024 (None) Encounter Status:Closed by VIVIAN MORLEY on 05/21/24 Normal [facility] Basophils Auto (Bld) [#/Vol] on 02-27-2024 Basophils (Bld) [#/Vol] 0.1 10 3/uL 0.0-0.1 [facility] Basophils/100 WBC Auto (Bld) on 02-27-2024 Basophils/100 WBC (Bld) 0.5 % 0.2-2.0 [facility] Eosinophils/100 WBC Auto (Bl d)on 02-27-2024 Eosinophils/100 WBC (Bld) 2.5 % 0.9-7.0 [facility] Erythrocyte distribution wid th Auto (RBC) [Ratio]on 02-27-2024 Erythrocyte distribution width (RBC) [Ratio] 13.5 % 11.0-15.0 [facility] Estimated glomerular filtrat ion rate (GFR) non- Americanon 02-27-2024 GFR/1.73 sq M.predicted among non-blacks MDRD (S/P/Bld) [Vol rate/Area] mL/min/{1.73_m2} >=60 [facility] Hematocrit Auto (Bld) [Volum e fraction]on 02-27-2024 Hematocrit (Bld) [Volume fraction] 47.1 % 42.0-54.0 [facility] Hemoglobin [Mass/volume] in Bloodon 02-27-2024 Hemoglobin (Bld) [Mass/Vol] 15.5 g/dL 14.0-18.0 [facility] Laboratory - Chemistry and C hemistry - challengeon 02-27-2024 Calcium [Mass/Vol] 8.9 mg/dL 8.5-10.1 [facility] Chloride [Moles/Vol] 98 mmol/L 98-107 [facility] CO2 [Moles/Vol] 28.1 mmol/L 21.0-32.0 [facility] Creatinine [Mass/Vol] 0.86 mg/dL 0.70-1.30 [facility] GFR/1.73 sq M.predicted MDRD (S/P/Bld) [Vol rate/Area] mL/min/{1.73_m2} >=60 [facility] Glucose [Mass/Vol] 237 mg/dL High 74-106 [facility] Lactate [Moles/Vol] 1.3 mmol/L 0.4-2.0 [facility] Potassium [Moles/Vol] 4.4 mmol/L 3.5-5.1 [facility] Sodium [Moles/Vol] 130 mmol/L Low 136-145 [facility] Urea nitrogen [Mass/Vol] 21.0 mg/dL High 7.0-18.0 [facility] Urea nitrogen/Creatinine [Mass ratio] 24.4 mg/mg [facility] Laboratory - Hematology and Cell countson 02-27-2024 Immature granulocytes/100 WBC (Bld) 0.3 % 0.0-0.5 [facility] Leukocytes [#/volume] correc jean claude for nucleated erythrocytes in Blood by Automated counon 02-27-2024 WBC corrected for nucl RBC Auto (Bld) [#/Vol] 9.3 10 3/uL 4.0-11.0 [facility] Lymphocytes Auto (Bld) [#/Vo l]on 02-27-2024 Lymphocytes (Bld) [#/Vol] 2.4 10 3/uL 1.2-3.8 [facility] Lymphocytes/100 WBC Auto (Bl d)on 02-27-2024 Lymphocytes/100 WBC (Bld) 25.5 % 20.5-60.0 [facility] MCH Auto (RBC) [Entitic mass ]on 02-27-2024 MCH (RBC) [Entitic mass] 29.1 pg 25.9-34.0 [facility] MCHC Auto (RBC) [Mass/Vol]on 02-27-2024 MCHC (RBC) [Mass/Vol] 32.9 g/dL 29.9-35.2 [facility] MCV Auto (RBC) [Entitic vol] on 02-27-2024 MCV (RBC) [Entitic vol] 88.5 fL 80.0-94.0 [facility] Monocytes Auto (Bld) [#/Vol] on 02-27-2024 Monocytes (Bld) [#/Vol] 1.1 10 3/uL High 0.3-0.8 [facility] Monocytes/100 WBC Auto (Bld) on 02-27-2024 Monocytes/100 WBC (Bld) 12.0 % 1.7-12.0 [facility] Neutrophils Auto (Bld) [#/Vo l]on 02-27-2024 Neutrophils (Bld) [#/Vol] 5.5 10 3/uL 1.4-6.5 [facility] Neutrophils/100 WBC Auto (Bl d)on 02-27-2024 Neutrophils/100 WBC (Bld) 59.2 % 43.0-75.0 [facility] No Panel Informationon 02-26 Eosinophils # (Auto) 0.2 10 3/uL 0.0-0.7 [facility] Immature Granulocyte # (Auto) 0.03 10 3/uL 0.00-0.03 [facility] Platelet mean volume Auto (B ld) [Entitic vol]on 02-27-2024 Platelet mean volume (Bld) [Entitic vol] 8.8 fL Low 9.5-13.5 [facility] Platelets Auto (Bld) [#/Vol] on 02-27-2024 Platelets (Bld) [#/Vol] 288 10 3/uL 150-450 [facility] RBC Auto (Bld) [#/Vol]on RBC (Bld) [#/Vol] 5.32 10 6/uL 4.70-6.10 [facility] Serum or plasma anion gap de terminationon 02-27-2024 Anion gap [Moles/Vol] 8.3 mmol/L [facility] Basophils Auto (Bld) [#/Vol] on 12-05-2023 Basophils (Bld) [#/Vol] 0.1 10 3/uL 0.0-0.1 [facility] Basophils/100 WBC Auto (Bld) on 12-05-2023 Basophils/100 WBC (Bld) 0.9 % 0.2-2.0 [facility] Eosinophils/100 WBC Auto (Bl d)on 12-05-2023 Eosinophils/100 WBC (Bld) 2.7 % 0.9-7.0 [facility] Erythrocyte distribution wid th Auto (RBC) [Ratio]on 12-05-2023 Erythrocyte distribution width (RBC) [Ratio] 13.1 % 11.0-15.0 [facility] Estimated glomerular filtrat ion rate (GFR) non- Americanon 12-05-2023 GFR/1.73 sq M.predicted among non-blacks MDRD (S/P/Bld) [Vol rate/Area] mL/min/{1.73_m2} >=60 [facility] Glucose mean value [Mass/vol ume] in Blood Estimated from glycated hemoglobinon 12-05-2023 Average glucose Estimated from glycated hemoglobin (Bld) [Mass/Vol] 171 mg/dL [facility] Hematocrit Auto (Bld) [Volum e fraction]on 12-05-2023 Hematocrit (Bld) [Volume fraction] 48.9 % 42.0-54.0 [facility] Hemoglobin [Mass/volume] in Bloodon 12-05-2023 Hemoglobin (Bld) [Mass/Vol] 16.0 g/dL 14.0-18.0 [facility] Laboratory - Chemistry and C hemistry - challengeon 12-05-2023 Calcium [Mass/Vol] 9.7 mg/dL 8.5-10.1 [facility] Chloride [Moles/Vol] 102 mmol/L 98-107 [facility] CO2 [Moles/Vol] 27.6 mmol/L 21.0-32.0 [facility] Creatinine [Mass/Vol] 1.01 mg/dL 0.70-1.30 [facility] GFR/1.73 sq M.predicted MDRD (S/P/Bld) [Vol rate/Area] mL/min/{1.73_m2} >=60 [facility] Glucose [Mass/Vol] 156 mg/dL High 74-106 [facility] Potassium [Moles/Vol] 4.4 mmol/L 3.5-5.1 [facility] Sodium [Moles/Vol] 139 mmol/L 136-145 [facility] Urea nitrogen [Mass/Vol] 13.0 mg/dL 7.0-18.0 [facility] Urea nitrogen/Creatinine [Mass ratio] 12.9 mg/mg [facility] Laboratory - Hematology and Cell countson 12-05-2023 ESR (Bld) [Velocity] 17 mm/h <=20 [facility] HbA1c (Bld) [Mass fraction] 7.6 % High 4.5-6.2 [facility] Comment on above: ADA RECOMMENDED LIMI T 4.0 - 6.0ADA THERAPEUTIC TARGET < 7.0ACTION SUGGESTED> 7.0 Immature granulocytes/100 WBC (Bld) 0.4 % 0.0-0.5 [facility] Leukocytes [#/volume] correc jean claude for nucleated erythrocytes in Blood by Automated counon 12-05-2023 WBC corrected for nucl RBC Auto (Bld) [#/Vol] 7.7 10 3/uL 4.0-11.0 [facility] Lymphocytes Auto (Bld) [#/Vo l]on 12-05-2023 Lymphocytes (Bld) [#/Vol] 2.4 10 3/uL 1.2-3.8 [facility] Lymphocytes/100 WBC Auto (Bl d)on 12-05-2023 Lymphocytes/100 WBC (Bld) 31.2 % 20.5-60.0 [facility] MCH Auto (RBC) [Entitic mass ]on 12-05-2023 MCH (RBC) [Entitic mass] 28.5 pg 25.9-34.0 [facility] MCHC Auto (RBC) [Mass/Vol]on 12-05-2023 MCHC (RBC) [Mass/Vol] 32.7 g/dL 29.9-35.2 [facility] MCV Auto (RBC) [Entitic vol] on 12-05-2023 MCV (RBC) [Entitic vol] 87.0 fL 80.0-94.0 [facility] Monocytes Auto (Bld) [#/Vol] on 12-05-2023 Monocytes (Bld) [#/Vol] 0.7 10 3/uL 0.3-0.8 [facility] Monocytes/100 WBC Auto (Bld) on 12-05-2023 Monocytes/100 WBC (Bld) 9.5 % 1.7-12.0 [facility] Neutrophils Auto (Bld) [#/Vo l]on 12-05-2023 Neutrophils (Bld) [#/Vol] 4.2 10 3/uL 1.4-6.5 [facility] Neutrophils/100 WBC Auto (Bl d)on 12-05-2023 Neutrophils/100 WBC (Bld) 55.3 % 43.0-75.0 [facility] No Panel Informationon 12-04 Eosinophils # (Auto) 0.2 10 3/uL 0.0-0.7 [facility] Immature Granulocyte # (Auto) 0.03 10 3/uL 0.00-0.03 [facility] Platelet mean volume Auto (B ld) [Entitic vol]on 12-05-2023 Platelet mean volume (Bld) [Entitic vol] 8.6 fL Low 9.5-13.5 [facility] Platelets Auto (Bld) [#/Vol] on 12-05-2023 Platelets (Bld) [#/Vol] 330 10 3/uL 150-450 [facility] RBC Auto (Bld) [#/Vol]on RBC (Bld) [#/Vol] 5.62 10 6/uL 4.70-6.10 [facility] Serum or plasma anion gap de terminationon 12-05-2023 Anion gap [Moles/Vol] 13.8 mmol/L [facility] Magnesiumon 07-02-2023 Magnesium [Mass/Vol] 2.0208482 mg/dL Normal 1.8- 2.4 mg/dL [employer] Other Magnesium see note [employer] Other XR CHEST 2 Von 11-24-2022 XR [...] by: RUBI TAVERAS Date: 2022-11-24 17:17 Normal [facility] CT LUNG CANCER SCREENINGon 1 [...] by: YEISON NAVAS Date: 2022-07-20 07:18 Normal [facility] CBC AUTO DIFFon 06-07-2022 BASO # 0.1 103/ul Normal 0.0-0.1 [facility] Comment on above: Performed By: #### C BC #### [facility] [address] [address] [address] Eran Chacon Basophils/100 WBC (Bld) 0.6 % Normal 0.2-2.0 [facility] Comment on above: Performed By: #### C BC #### [facility] [address] [address] [address] Eran Chacon EO # 0.3 103/ul Normal 0.0-0.7 [facility] Comment on above: Performed By: #### C BC #### [facility] [address] [place] [address] Dr. Eran Chacon Eosinophils/100 WBC (Bld) 3.3 % Normal 0.9-7.0 [facility] Comment on above: Performed By: #### C BC #### [facility] [address] [place] [address] Dr. Eran Chacon Erythrocyte distribution width (RBC) [Ratio] 12.9 % Normal 11.0-15.0 [facility] Comment on above: Performed By: #### C BC #### [facility] [address] [place] [address] Dr. Eran Chacon Hematocrit (Bld) [Volume fraction] 47.7 % Normal 42.0-54.0 [facility] Comment on above: Performed By: #### C BC #### [facility] [address] [place] [address] Dr. Eran Chacon Hemoglobin (Bld) [Mass/Vol] 15.9 g/dL Normal 14.0-18.0 [facility] Comment on above: Performed By: #### C BC #### [facility] [address] [place] [address] Dr. Eran Chacon IG # 0.02 10e3/ul Normal 0.00-0.03 [facility] Comment on above: Performed By: #### C BC #### [facility] [address] [place] [address] Dr. Eran Chacon IG % 0.2 % Normal 0.0-0.5 [facility] Comment on above: Performed By: #### C BC #### [facility] [address] [place] [address] Dr. Eran Chacon LYMPH # 3.4 103/ul Normal 1.2-3.8 [facility] Comment on above: Performed By: #### C BC #### [facility] [address] [place] [address] Dr. Eran Chacon Lymphocytes/100 WBC (Bld) 34.5 % Normal 20.5-60.0 [facility] Comment on above: Performed By: #### C BC #### [facility] [address] [place] [address] Dr. Eran Chacon MANUAL DIFF REQ NO Normal [facility] Comment on above: Performed By: #### C BC #### [facility] [address] [place] [address] Dr. Eran Chacon MCH (RBC) [Entitic mass] 29.6 pg Normal 25.9-34.0 [facility] Comment on above: Performed By: #### C BC #### [facility] [address] [place] [address] Dr. Eran Chacon MCHC (RBC) [Mass/Vol] 33.3 g/dL Normal 29.9-35.2 [facility] Comment on above: Performed By: #### C BC #### [facility] [address] [place] [address] Dr. Eran Chacon MCV (RBC) [Entitic vol] 88.8 fL Normal 80.0-94.0 [facility] Comment on above: Performed By: #### C BC #### [facility] [address] [place] [address] Dr. Eran Chacon MONO # 0.9 103/ul Critically high 0.3-0.8 [facility] Comment on above: Performed By: #### C BC #### [facility] [address] [place] [address] Dr. Eran Chacon Monocytes/100 WBC (Bld) 9.3 % Normal 1.7-12.0 [facility] Comment on above: Performed By: #### C BC #### [facility] [address] [place] [address] Dr. Eran Chacon NEUT # 5.2 103/ul Normal 1.4-6.5 [facility] Comment on above: Performed By: #### C BC #### [facility] [address] [place] [address] Dr. Eran Chacon Neutrophils/100 WBC (Bld) 52.1 % Normal 43.0-75.0 [facility] Comment on above: Performed By: #### C BC #### [facility] [address] [place] [address] Dr. Eran Chacon Platelet mean volume (Bld) [Entitic vol] 8.8 fL Critically low 9.5-13.5 [facility] Comment on above: Performed By: #### C BC #### [facility] [address] [place] [address] Dr. Eran Chacon PLT 287 103/ul Normal 150-450 [facility] Comment on above: Performed By: #### C BC #### [facility] [address] [place] [address] Dr. Eran Chacon RBC 5.37 106/ul Normal 4.70-6.10 [facility] Comment on above: Performed By: #### C BC #### [facility] [address] [place] [address] Dr. Eran Chacon WBC 9.9 103/ul Normal 4.0-11.0 [facility] Comment on above: Performed By: #### C BC #### [facility] [address] [place] [address] Dr. Eran Chacon ER URINE PROFILEon 2 Bilirubin Ql (U) Negative Normal NEGATIVE [facility] Comment on above: Performed By: #### BISHNU BATESRO #### [facility] [address] [place] [address] Dr. Eran Chacon Clarity (U) CLEAR Normal CLEAR [facility] Comment on above: Performed By: #### Med SHER UMICRO #### [facility] [address] [place] [address] Dr. Eran Chacon Color (U) YELLOW Normal YELLOW [facility] Comment on above: Performed By: #### ERMELINDA BATESICRO #### [facility] [address] [address] [address] Eran GATES A micrscopic examination will be performed if indicated. Normal [facility] Comment on above: Performed By: #### ERMELINDA BATESICRO #### [facility] [address] [address] [address] Eran Chacon Glucose Ql (U) 500 mg/dl Abnormal NEGATIVE [facility] Comment on above: Performed By: #### Med SHER UMICRO #### [facility] [address] [address] [address] Eran Chacon Hemoglobin Ql (U) TRACE-INTACT Abnormal NEGATIVE [facility] Comment on above: Performed By: #### Med SHER UMICRO #### [facility] [address] [place] [address] Dr. Eran Chacon Ketones Ql (U) Negative Normal NEGATIVE [facility] Comment on above: Performed By: #### Med SHER UMICRO #### [facility] [address] [place] [address] Dr. Eran Chacon LEUKOCYTES Negative Normal NEGATIVE [facility] Comment on above: Performed By: #### Med SHER UMICRO #### [facility] [address] [place] [address] Dr. Eran Chacon Nitrite Ql (U) Negative Normal NEGATIVE [facility] Comment on above: Performed By: #### ERMELINDA BATESICRO #### [facility] [address] [place] [address] Dr. Eran Chacon pH (U) 6.0 [pH] Normal 5-9 [facility] Comment on above: Performed By: #### BISHNU BATESRO #### [facility] [address] [place] [address] Dr. Eran Chacon SPEC GRAVITY 1.025 Normal 1.005-<=1.02 5 [facility] Comment on above: Performed By: #### ERMELINDA BATESICRO #### [facility] [address] [place] [address] Dr. Eran Chacon UA PROTEIN Negative Normal NEGATIVE/ TRACE [facility] Comment on above: Performed By: #### HANNA BATES #### [facility] [address] [place] [address] Dr. Eran Chacon UR MICRO IND INDICATED Normal [facility] Comment on above: Performed By: #### HANNA BATES #### [facility] [address] [place] [address] Dr. Eran Chacon Urobilinogen Qn (U) 0.2 {Aureliano'U}/dL Normal 0.2 - 1. 0 [facility] Comment on above: Performed By: #### HANNA BATES #### [facility] [address] [place] [address] Dr. Eran Chacon PROF 14(COMP METB)on 022 Albumin [Mass/Vol] 4.0 g/dL Normal 3.4-5.0 [facility] Comment on above: Performed By: #### C MP #### [facility] [address] [place] [address] Dr. Eran Chacon Albumin/Globulin [Mass ratio] 1.2 {ratio} Normal [facility] Comment on above: Performed By: #### C MP #### [facility] [address] [place] [address] Dr. Eran Chacon ALP [Catalytic activity/Vol] 104 U/L Normal 46-116 [facility] Comment on above: Performed By: #### C MP #### [facility] [address] [place] [address] Dr. Eran Chacon ALT [Catalytic activity/Vol] 28 U/L Normal 16-63 [facility] Comment on above: Performed By: #### C MP #### [facility] [address] [place] [address] Dr. Eran Chacon Anion gap [Moles/Vol] 7.2 mmol/L Normal [facility] Comment on above: Performed By: #### C MP #### [facility] [address] [place] [address] Dr. Eran Chacon AST [Catalytic activity/Vol] 14 U/L Critically low 15-37 [facility] Comment on above: Performed By: #### C MP #### [facility] [address] [address] [address] Eran Chacon Bilirubin [Mass/Vol] 0.4 mg/dL Normal 0.2-1.0 [facility] Comment on above: Performed By: #### C MP #### [facility] [address] [address] [address] Eran Chacon Calcium [Mass/Vol] 9.0 mg/dL Normal 8.5-10.1 [facility] Comment on above: Performed By: #### C MP #### [facility] [address] [place] [address] Dr. Eran Chacon Chloride [Moles/Vol] 103 mmol/L Normal 98-107 [facility] Comment on above: Performed By: #### C MP #### [facility] [address] [place] [address] Dr. Eran Chacon CO2 [Moles/Vol] 30.0 mmol/L Normal 21.0-32.0 [facility] Comment on above: Performed By: #### C MP #### [facility] [address] [place] [address] Dr. Eran Chacon Creatinine [Mass/Vol] 0.85 mg/dL Normal 0.70-1.30 [facility] Comment on above: Performed By: #### C MP #### [facility] [address] [place] [address] Dr. Eran Chacon EGFR-AF BOLIVIAN >60 Normal >=60 [facility] Comment on above: Performed By: #### C MP #### [facility] [address] [place] [address] Dr. Eran Chacon EGFR-NON AF BOLIVIAN >60 Normal >=60 [facility] Comment on above: Performed By: #### C MP #### [facility] [address] [place] [address] Dr. Eran Chacon Globulin (S) [Mass/Vol] 3.3 g/dL Normal [facility] Comment on above: Performed By: #### C MP #### [facility] [address] [address] [address] Eran Chacon Glucose [Mass/Vol] 165 mg/dL Critically high 74-106 [facility] Comment on above: Performed By: #### C MP #### [facility] [address] [address] [address] Eran Chacon Potassium [Moles/Vol] 4.2 mmol/L Normal 3.5-5.1 [facility] Comment on above: Performed By: #### C MP #### [facility] [address] [address] [address] Eran Chacon Protein [Mass/Vol] 7.3 g/dL Normal 6.4-8.2 [facility] Comment on above: Performed By: #### C MP #### [facility] [address] [address] [address] Eran Chacon Sodium [Moles/Vol] 136 mmol/L Normal 136-145 [facility] Comment on above: Performed By: #### C MP #### [facility] [address] [address] [address] Eran Chacon Urea nitrogen [Mass/Vol] 10.0 mg/dL Normal 7.0-18.0 [facility] Comment on above: Performed By: #### C MP #### [facility] [address] [address] [address] Eran Chacon Urea nitrogen/Creatinine [Mass ratio] 11.8 mg/mg Normal [facility] Comment on above: Performed By: #### C MP #### [facility] [address] [address] [address] Eran Chacon URINE MICROSCOPIC ONLYon BACTERIA NONE SEEN Normal NONE SEEN [facility] Comment on above: Performed By: #### E HANNA SHER #### [facility] [address] [address] [address] Eran Chacon Bacteria identified Cx Nom (U) NOT INDICATED Normal [facility] Comment on above: Performed By: #### E RUR, UMICRO #### [facility] [address] [place] [address] Dr. Eran Chacon CAST NONE SEEN Normal NONE SEEN [facility] Comment on above: Performed By: #### Med SHER UMICRO #### [facility] [address] [place] [address] Dr. Eran Chacon Crystals LM Nom (Urine sed) NONE SEEN Normal NONE SEEN [facility] Comment on above: Performed By: #### Med SHER UMICRO #### [facility] [address] [place] [address] Dr. Eran Chacon Epithelial cells LM Ql (Urine sed) RARE Normal NONE SEEN /RARE [facility] Comment on above: Performed By: #### Med SHER UMICRO #### [facility] [address] [place] [address] Dr. Eran Chacon MUCOUS NONE SEEN Normal NONE SEEN [facility] Comment on above: Performed By: #### Med SHER UMICRO #### [facility] [address] [place] [address] Dr. Eran Chacon RBC 0-2 Normal 0-2 [facility] Comment on above: Performed By: #### Med SHER UMICRO #### [facility] [address] [place] [address] Dr. Eran Chacon WBC 2-5 Abnormal NONE SEEN [facility] Comment on above: Performed By: #### Med SHER UMICRO #### [facility] [address] [place] [address] Dr. Eran Chacon MRI SHOULDER LT WO [...] by: YEISON NAVAS Date: 2022-02-02 17:09 Normal [facility] Vital Signs Date Time Vital Sign Value Performing Clinician Facility 02-16-2025 14:47-0400 Body height 175.26 cm Jeremy Magallanes MD Work Phone: [facility] 02-16-2025 14:47-0400 Body mass index (BMI) [Ratio] 34 kg/m2 Jeremy Magallanes MD Work Phone: [facility] 02-16-2025 14:47-0400 Body weight 104.32 kg Jeremy Magallanes MD Work Phone: [facility] 02-16-2025 14:47-0400 Diastolic blood pressure 74 mm[Hg] Jeremy Magallanes MD Work Phone: [facility] 02-16-2025 14:47-0400 Heart rate 81 /min Jeremy Magallanes MD Work Phone: [facility] 02-16-2025 14:47-0400 Respiratory rate 12 /min Jeremy Magallanes MD Work Phone: [facility] 02-16-2025 14:47-0400 SaO2% (BldA) [Mass fraction] 97 % Jeremy Magallanes MD Work Phone: [facility] 02-16-2025 14:47-0400 Systolic blood pressure 120 mm[Hg] Jeremy Magallanes MD Work Phone: [facility] 01-21-2025 09:27-0400 Body height 175.26 cm [facility] 01-21-2025 09:27-0400 Body mass index (BMI) [Ratio] 34.1 kg/m2 [facility] 01-21-2025 09:27-0400 Body temperature 98.5 [degF] [facility] 01-21-2025 09:27-0400 Body weight 104.77 kg [facility] 01-21-2025 09:27-0400 Diastolic blood pressure 82 mm[Hg] [facility] 01-21-2025 09:27-0400 Heart rate 72 /min [facility] 01-21-2025 09:27-0400 SaO2% (BldA) [Mass fraction] 97 % [facility] 01-21-2025 09:27-0400 Systolic blood pressure 144 mm[Hg] [facility] [facility] 12-22-2024 08:21-0400 Body height 175.26 cm [facility] 12-22-2024 08:21-0400 Body mass index (BMI) [Ratio] 33.6 kg/m2 [facility] 12-22-2024 08:21-0400 Body temperature 98.6 [degF] [facility] 12-22-2024 08:21-0400 Body weight 103.41 kg [facility] 12-22-2024 08:21-0400 Diastolic blood pressure 81 mm[Hg] [facility] 12-22-2024 08:21-0400 Heart rate 71 /min [facility] 12-22-2024 08:21-0400 SaO2% (BldA) [Mass fraction] 94 % [facility] 12-22-2024 08:21-0400 Systolic blood pressure 143 mm[Hg] [facility] 10-15-2024 08:56-0500 Body height 175.26 cm [facility] 10-15-2024 08:56-0500 Body mass index (BMI) [Ratio] 34.5 kg/m2 [facility] 10-15-2024 08:56-0500 Body temperature 98 [degF] [facility] 10-15-2024 08:56-0500 Body weight 106.14 kg [facility] 10-15-2024 08:56-0500 Diastolic blood pressure 81 mm[Hg] [facility] 10-15-2024 08:56-0500 Heart rate 76 /min [facility] 10-15-2024 08:56-0500 Systolic blood pressure 136 mm[Hg] [facility] 07-23-2024 10:21-0500 Body height 175.26 cm [facility] 07-23-2024 10:21-0500 Body mass index (BMI) [Ratio] 34.2 kg/m2 [facility] 07-23-2024 10:21-0500 Body weight 105.23 kg [facility] 07-23-2024 10:21-0500 Diastolic blood pressure 75 mm[Hg] [facility] 07-23-2024 10:21-0500 Heart rate 73 /min [facility] 07-23-2024 10:21-0500 SaO2% (BldA) [Mass fraction] 97 % [facility] 07-23-2024 10:21-0500 Systolic blood pressure 133 mm[Hg] [facility] 06-17-2024 09:13-0400 Body height 175.26 cm MD Jeremy Magallanes Work Phone: [facility] 06-17-2024 09:13-0400 Body mass index (BMI) [Ratio] 33.5 kg/m2 MD Jeremy Magallanes Work Phone: [facility] 06-17-2024 09:13-0400 Body temperature 98.1 [degF] MD Jeremy Magallanes Work Phone: [facility] 06-17-2024 09:13-0400 Body weight 102.96 kg MD Jeremy Magallanes Work Phone: [facility] 06-17-2024 09:13-0400 Diastolic blood pressure 83 mm[Hg] MD Jeremy Magallanes Work Phone: [facility] 06-17-2024 09:13-0400 Heart rate 79 /min MD Jeremy Magallanes Work Phone: [facility] 06-17-2024 09:13-0400 Systolic blood pressure 149 mm[Hg] MD Jeremy Magallanes Work Phone: [facility] 05-27-2024 14:56-0400 Body height 175.3 cm Arieso [employer] ATTEND[employer] Work Phone: [facility] [employer] [facility] 05-27-2024 14:56-0400 Body mass index (BMI) [Ratio] 33.97 kg/m2 Arieso [employer] COUNTER ATTEND[employer] GRINDER [facility] [employer] 05-27-2024 14:56-0400 Body weight 104.33 kg Arieso [employer] COUNTER ATTEND[employer]-B[employer] GR[employer]ER Work Phone: [facility] [employer] [facility] 04-07-2024 10:04-0400 Body height 180.3 cm Malathi Sanchez MD Work Phone: [facility] 04-07-2024 10:04-0400 Body mass index (BMI) [Ratio] 32.78 kg/m2 Malathi Sanchez MD Work Phone: [facility] 04-07-2024 10:04-0400 Body weight 106.59 kg Malathi Sanchez MD Work Phone: [facility] 04-07-2024 10:04-0400 Diastolic blood pressure 88 mm[Hg] Malathi Sanchez MD Work Phone: [facility] 04-07-2024 10:04-0400 Systolic blood pressure 184 mm[Hg] Malathi Sanchez MD Work Phone: [facility] 03-18-2024 08:46-0400 Body height 175.26 cm [facility] 03-18-2024 08:46-0400 Body mass index (BMI) [Ratio] 34.4 kg/m2 [facility] 03-18-2024 08:46-0400 Body weight 105.68 kg [facility] 03-18-2024 08:46-0400 Diastolic blood pressure 80 mm[Hg] [facility] 03-18-2024 08:46-0400 Heart rate 72 /min [facility] 03-18-2024 08:46-0400 Systolic blood pressure 130 mm[Hg] [facility] 03-03-2024 11:54-0400 Body height 175.26 cm [facility] 03-03-2024 11:54-0400 Body mass index (BMI) [Ratio] 34.7 kg/m2 [facility] 03-03-2024 11:54-0400 Body weight 106.59 kg [facility] 03-03-2024 11:54-0400 Diastolic blood pressure 81 mm[Hg] [facility] 03-03-2024 11:54-0400 Heart rate 69 /min [facility] 03-03-2024 11:54-0400 Systolic blood pressure 129 mm[Hg] [facility] 12-17-2023 08:54-0400 Body height 175.26 cm [facility] 12-17-2023 08:54-0400 Body mass index (BMI) [Ratio] 35.2 kg/m2 [facility] 12-17-2023 08:54-0400 Body weight 108.4 kg [facility] 12-17-2023 08:54-0400 Diastolic blood pressure 76 mm[Hg] [facility] 12-17-2023 08:54-0400 Heart rate 76 /min [facility] 12-17-2023 08:54-0400 Systolic blood pressure 154 mm[Hg] [facility] 12-05-2023 08:52-0400 Body height 175.26 cm [facility] 12-05-2023 08:52-0400 Body mass index (BMI) [Ratio] 35 kg/m2 [facility] 12-05-2023 08:52-0400 Body weight 107.67 kg [facility] 12-05-2023 08:52-0400 Diastolic blood pressure 78 mm[Hg] [facility] 12-05-2023 08:52-0400 Heart rate 69 /min [facility] 12-05-2023 08:52-0400 Systolic blood pressure 147 mm[Hg] [facility] 09-13-2023 13:30-0500 Body height 175.26 cm Jeremy Magallanes Other [facility] 09-13-2023 13:30-0500 Body mass index (BMI) [Ratio] 33.22 kg/m2 Jeremy Magallanes Other [employer] [facility] [employer] Other 09-13-2023 13:30-0500 Body temperature 98.4 [degF] Jeremy Magallanes Other [employer] [facility] [employer] Other 09-13-2023 13:30-0500 Body weight 102.06 kg Jeremy Magallanes Other [employer] Other 09-13-2023 13:30-0500 Body weight 102.05 kg [facility] 09-13-2023 13:30-0500 Diastolic blood pressure 80 mm[Hg] Jeremy Magallanes Other [facility] 09-13-2023 13:30-0500 SaO2% (BldA) [Mass fraction] 93 % Jeremy Magallanes Other [employer] Other 09-13-2023 13:30-0500 Systolic blood pressure 118 mm[Hg] Jeremy Magallanes Other [facility] 08-13-2023 10:30-0500 Body height 175.26 cm Jeremy Magallanes Other [employer] Other 08-13-2023 10:30-0500 Body mass index (BMI) [Ratio] 33.9 kg/m2 Jeremy Magallanes Other [employer] Other 08-13-2023 10:30-0500 Body weight 104.15 kg Jeremy Magallanes Other [employer] Other 08-13-2023 10:30-0500 Diastolic blood pressure 78 mm[Hg] Jeremy Magallanes Other [employer] Other 08-13-2023 10:30-0500 Systolic blood pressure 124 mm[Hg] Jeremy Magallanes Other [employer] Other 06-25-2023 08:45-0500 Body height 175.26 cm Jeremy Magallanes Other [employer] Other 06-25-2023 08:45-0500 Body mass index (BMI) [Ratio] 33.37 kg/m2 Jeremy Magallanes Other [employer] Other 06-25-2023 08:45-0500 Body temperature 96.5 [degF] Jeremy Magallanes Other [employer] Other 06-25-2023 08:45-0500 Body weight 102.51 kg Jeremy Magallanes Other [employer] Other 06-25-2023 08:45-0500 Diastolic blood pressure 85 mm[Hg] Jeremy Magallanes Other [employer] Other 06-25-2023 08:45-0500 Systolic blood pressure 149 mm[Hg] Jeremy Magallanes Other [employer] Other 05-28-2023 10:45-0400 Body height 175.26 cm Jeremy Magallanes Other [employer] Other 05-28-2023 10:45-0400 Body mass index (BMI) [Ratio] 33.52 kg/m2 Jeremy Magallanes Other [employer] Other 05-28-2023 10:45-0400 Body weight 102.97 kg Jeremy Magallanes Other [employer] Other 05-28-2023 10:45-0400 Diastolic blood pressure 82 mm[Hg] Jeremy Magallanes Other [employer] Other 05-28-2023 10:45-0400 Systolic blood pressure 147 mm[Hg] Jeremy Magallanes Other [employer] Other 2023 08:45-0400 Body height 175.26 cm Jeremy Magallanes Other [employer] Other 2023 08:45-0400 Body mass index (BMI) [Ratio] 33.52 kg/m2 Jeremy Magallanes Other [employer] Other 2023 08:45-0400 Body weight 102.97 kg Jeremy Magallanes Other [employer] Other 2023 08:45-0400 Diastolic blood pressure 85 mm[Hg] Jeremy Magallanes Other [employer] Other 2023 08:45-0400 Systolic blood pressure 156 mm[Hg] Jeremy Magallanes Other [employer] Other 04-30-2023 09:45-0400 Body height 175.26 cm Jeremy Magallanes Other [employer] Other 04-30-2023 09:45-0400 Body mass index (BMI) [Ratio] 34.32 kg/m2 Jeremy Magallanes Other [employer] Other 04-30-2023 09:45-0400 Body temperature 96.2 [degF] Jeremy Magallanes Other [employer] Other 04-30-2023 09:45-0400 Body weight 105.42 kg Jeremy Magallanes Other [employer] Other 04-30-2023 09:45-0400 Diastolic blood pressure 78 mm[Hg] Jeremy Magallanes Other [employer] Other 04-30-2023 09:45-0400 Respiratory rate 16 /min Jeremy Magallanes Other [employer] Other 04-30-2023 09:45-0400 Systolic blood pressure 146 mm[Hg] Jeremy Magallanes Other [employer] Other 02-20-2023 09:15-0400 Body height 175.26 cm Jeremy Magallanes Other [employer] Other 02-20-2023 09:15-0400 Body mass index (BMI) [Ratio] 33.46 kg/m2 Jeremy Magallanes Other [employer] Other 02-20-2023 09:15-0400 Body weight 102.79 kg Jeremy Magallanes Other [employer] Other 02-20-2023 09:15-0400 Diastolic blood pressure 77 mm[Hg] Jeremy Magallanes Other [employer] Other 02-20-2023 09:15-0400 Systolic blood pressure 131 mm[Hg] Jeremy Magallanes Other [employer] Other 01-17-2023 08:45-0400 Body height 175.26 cm Jeremy Magallanes Other [employer] Other 01-17-2023 08:45-0400 Body mass index (BMI) [Ratio] 33.37 kg/m2 Jeremy Magallanes Other [employer] Other 01-17-2023 08:45-0400 Body weight 102.51 kg Jeremy Magallanes Other [employer] Other 01-17-2023 08:45-0400 Diastolic blood pressure 79 mm[Hg] Jeremy Magallanes Other [employer] Other 01-17-2023 08:45-0400 Systolic blood pressure 128 mm[Hg] Jeremy Magallanes Other [employer] Other 11-23-2022 09:30-0400 Body height 175.26 cm Jeremy Magallanes Other [employer] Other 11-23-2022 09:30-0400 Body mass index (BMI) [Ratio] 33.96 kg/m2 Jeremy Magallanes Other [employer] Other 11-23-2022 09:30-0400 Body weight 104.33 kg Jeremy Magallanes Other [employer] Other 11-23-2022 09:30-0400 Diastolic blood pressure 72 mm[Hg] Jeremy Magallanes Other [employer] Other 11-23-2022 09:30-0400 Systolic blood pressure 122 mm[Hg] Jeremy Magallanes Other [employer] Other 09-04-2022 11:30-0500 Body height 175.26 cm Jeremy Magallanes Other [employer] Other 09-04-2022 11:30-0500 Body mass index (BMI) [Ratio] 33.52 kg/m2 Jeremy Magallanes Other [employer] Other 09-04-2022 11:30-0500 Body weight 102.97 kg Jeremy Magallanes Other [employer] Other 09-04-2022 11:30-0500 Diastolic blood pressure 80 mm[Hg] Jeremy Magallanes Other [employer] Other 09-04-2022 11:30-0500 SaO2% (BldA) [Mass fraction] 95 % Jeremy Magallanes Other [employer] Other 09-04-2022 11:30-0500 Systolic blood pressure 122 mm[Hg] Jeremy Magallanes Other [employer] Other 02-06-2022 12:45-0400 Body height 175.26 cm Kesha Olexa Other [employer] Other 02-06-2022 12:45-0400 Body mass index (BMI) [Ratio] 31.01 kg/m2 Kesha Olexa Other [employer] Other 02-06-2022 12:45-0400 Body weight 95.26 kg Kesha Olexa Other [employer] Other 05-26-2021 13:15-0400 Body height 175.26 cm Harriet Mo Other [employer] Other 05-26-2021 13:15-0400 Body mass index (BMI) [Ratio] 31.01 kg/m2 Harriet Elizabethnty Other [employer] Other 05-26-2021 13:15-0400 Body temperature 98.3 [degF] Harriet Elizabethnty Other [employer] Other 05-26-2021 13:15-0400 Body weight 95.26 kg Harriet Ginty Other [employer] Other 05-26-2021 13:15-0400 SaO2% (BldA) [Mass fraction] 96 % Harriet Elizabethnty Other [employer] Other Encounters Encounter Date Encounter Type Care Provider Facility Start: 04-05-2025 End: 04-05-2025 ambulatory Zacarias Pike MD Facility:[facility] Start: 02-16-2025 End: 02-16-2025 ambulatory Jeremy Magallanes MD Work Phone: [facility] Work Phone: Start: 02-16-2025 End: 02-16-2025 Patient encounter procedure Jeremy Magallanes MD -[facility] Work Phone: Start: 01-21-2025 End: 01-21-2025 ambulatory [facility] Work Phone: Start: 01-21-2025 End: 01-21-2025 Patient encounter procedure [facility] Work Phone: Start: 12-23-2024 Non-patient / Non-visit [facility] Work Phone: Start: 12-22-2024 End: 12-22-2024 ambulatory [facility] Work Phone: Start: 12-22-2024 End: 12-22-2024 Patient encounter procedure [facility] Work Phone: Start: 11-23-2024 End: 11-23-2024 ambulatory Zacarias Pike MD Facility: [facility] Start: 11-04-2024 End: 11-05-2024 ambulatory Ligia DIOP Facility:[facility] Start: 11-04-2024 End: 11-05-2024 Patient encounter procedure Ligia DIOP [facility] Start: 11-04-2024 End: 11-05-2024 ambulatory Ligia DIOP Facility:[facility] Start: 10-15-2024 End: 10-15-2024 ambulatory [facility] Work Phone: Start: 10-15-2024 End: 10-15-2024 Patient encounter procedure [facility] Work Phone: Start: 10-12-2024 Non-patient / Non-visit [facility] Work Phone: Start: 10-11-2024 Non-patient / Non-visit [facility] Work Phone: Start: 08-26-2024 Non-patient / Non-visit [facility] Work Phone: Start: 08-17-2024 End: 08-17-2024 ambulatory Zacarias Pike MD Facility: [facility] Start: 07-23-2024 End: 07-23-2024 Patient encounter procedure [facility] Work Phone: Start: 07-21-2024 Non-patient / Non-visit [facility] Work Phone: Start: 07-20-2024 Non-patient / Non-visit [facility] Work Phone: Start: 06-17-2024 End: 06-17-2024 ambulatory MD Jeremy Magallanes Work Phone: [facility] Work Phone: Start: 06-17-2024 End: 06-17-2024 Patient encounter procedure MD Jeremy Magallanes Work Phone: [facility] Work Phone: Start: 06-12-2024 End: 06-12-2024 Orders Only Not In System Ref Prov [facility] Start: 06-10-2024 End: 06-10-2024 Orders Only Rosalia Shea [facility] Comment on above: Dysphagia, unspecifi ed type; Black stools Start: 06-03-2024 End: 06-03-2024 ambulatory MD Jeremy Magallanes Work Phone: [facility] Work Phone: Start: 06-03-2024 End: 06-03-2024 Departed Referred MD Jeremy Magallanes Work Phone: [facility] Start: 06-03-2024 Non-patient / Non-visit MD Angelina Magallanes Work Phone: [facility] Work Phone: Start: 05-27-2024 End: 05-27-2024 Office outpatient new 30 minutes Priyanka Vaz [employer] ATTEND[employer] Work Phone: [facility] Comment on above: Dysphagia, unspecifi ed type (Primary Dx); Black stools; Gastroesophageal reflux disease, unspecified whether esophagitis present; Abnormal esophagram Start: 05-27-2024 End: 05-27-2024 ambulatory PRIYANKAETHAN VAZ [facility] Start: 05-18-2024 End: 05-18-2024 ambulatory Zacarias Pike MD Facility:[facility] Start: 05-14-2024 End: 05-21-2024 Telephone encounter [...] Not Available Start: 03-18-2024 End: 03-18-2024 ambulatory [facility] Work Phone: Start: 03-18-2024 End: 03-18-2024 Patient encounter procedure [facility] Work Phone: Start: 03-03-2024 End: 03-03-2024 ambulatory [facility] Work Phone: Start: 03-03-2024 End: 03-03-2024 Patient encounter procedure [facility] Work Phone: Start: 02-27-2024 Non-patient / Non-visit [facility] Work Phone: Start: 12-17-2023 End: 12-17-2023 ambulatory [facility] Work Phone: Start: 12-17-2023 End: 12-17-2023 Patient encounter procedure [facility] Work Phone: Start: 12-05-2023 End: 12-05-2023 ambulatory [facility] Work Phone: Start: 12-05-2023 End: 12-05-2023 Patient encounter procedure [facility] Work Phone: Start: 10-23-2023 Non-patient / Non-visit [facility] Work Phone: Start: 10-08-2023 Non-patient / Non-visit [facility] Work Phone: Start: 10-07-2023 End: 10-07-2023 ambulatory BARBIE Tellez POCOS Not Available Start: 09-18-2023 End: 09-18-2023 ambulatory Jeremy Sona Other [employer] Other Start: 09-18-2023 Telephone encounter Jeremy Sona [facility] Start: 09-13-2023 End: 09-13-2023 ambulatory Jeremy Sona Other [employer] Other Start: 09-13-2023 Office outpatient vi sit 15 minutes Jeremy Sona [facility] Start: 09-13-2023 End: 09-13-2023 Patient encounter procedure [facility]- Start: 09-11-2023 Telephone encounter [place] [...] 09-10-2023 End: 09-10-2023 ambulatory Jeremy Magallanes Other [employer] Other Start: 09-10-2023 Telephone encounter Jeremy Magallanes [facility] Start: 09-06-2023 End: 09-06-2023 ambulatory Jeremy Magallanes Other [employer] Other Start: 09-06-2023 Telephone encounter Jeremy Magallanes [facility] Start: 09-02-2023 End: 09-02-2023 ambulatory JIN POCOS Not Available Start: 08-20-2023 End: 08-20-2023 ambulatory Jeremy Magallanes Other [employer] Other Start: 08-20-2023 Telephone encounter Jeremy Magallanes [facility] Start: 08-13-2023 End: 08-13-2023 ambulatory Jeremy Magallanes Other [employer] Other Start: 08-13-2023 Office outpatient vi sit 25 minutes Jeremy Magallanes [facility] Start: 08-13-2023 Telephone encounter Jeremy Magallanes [facility] Start: 08-06-2023 End: 08-06-2023 ambulatory Jeremy Magallanes Other [employer] Other Start: 08-06-2023 Telephone encounter Jeremy Magallanes [facility] Start: 07-29-2023 End: 07-29-2023 ambulatory JIN POCOS Not Available Start: 07-22-2023 End: 07-22-2023 ambulatory Jeremy Magallanes Other [employer] Other Start: 07-22-2023 Telephone encounter Jeremy Magallanes [facility] Start: 07-19-2023 End: 07-19-2023 ambulatory Jeremy Magallanes Other [employer] Other Start: 07-19-2023 Telephone encounter Jeremy Magallanes [facility] Start: 07-18-2023 End: 07-18-2023 ambulatory Jeremy Magallanes Other [employer] Other Start: 07-18-2023 Telephone encounter Jeremy Magallanes [facility] Start: 07-02-2023 End: 07-02-2023 ambulatory Jeremy Magallanes Other [employer] Other Start: 07-02-2023 Office outpatient vi sit 15 minutes Jeremy Magallanes [facility] Start: 07-02-2023 Telephone encounter Jeremy Magallanes [facility] Start: 06-25-2023 End: 06-25-2023 ambulatory Jeremy Magallanes Other [employer] Other Start: 06-25-2023 Office outpatient vi sit 15 minutes Jeremy Magallanes [facility] Start: 06-21-2023 End: 06-21-2023 ambulatory Jeremy Magallanes Other [employer] Other Start: 06-21-2023 Encounter by compute r link Jeremy Magallanes [facility] Start: 06-20-2023 End: 06-20-2023 ambulatory Jeremy Magallanes Other [employer] Other Start: 06-20-2023 Telephone encounter Jeremy Magallanes [facility] Start: 06-17-2023 End: 06-17-2023 ambulatory Jeremy Sona Other [employer] Other Start: 06-17-2023 Telephone encounter Jeremy Magallanes [facility] Start: 06-10-2023 End: 06-10-2023 ambulatory Jeremy Magallanes Other [employer] Other Start: 06-10-2023 Telephone encounter Jeremy Magallanes [facility] Start: 06-03-2023 End: 06-03-2023 ambulatory Jeremy Magallanes Other [employer] Other Start: 06-03-2023 Telephone encounter Jeremy Magallanes [facility] Start: 05-30-2023 End: 05-30-2023 Patient encounter procedure [facility] Start: 05-28-2023 End: 05-28-2023 ambulatory Jeremy Magallanes Other [employer] Other Start: 05-28-2023 Office outpatient vi sit 15 minutes Jeremy Sona [facility] Start: 2023 End: 2023 ambulatory Jeremy Magallanes Other [employer] Other Start: 2023 Office outpatient vi sit 15 minutes Jeremy Sona [facility] Start: 05-16-2023 End: 05-16-2023 ambulatory Jeremy Sona Other [employer] Other Start: 05-16-2023 Telephone encounter Jeremy Magallanes [facility] Start: 04-30-2023 End: 04-30-2023 ambulatory Jeremy Sona Other [employer] Other Start: 04-30-2023 Office outpatient vi sit 15 minutes Jeremy Sona [facility] Start: 04-26-2023 End: 04-26-2023 ambulatory Jeremy Sona Other [employer] Other Start: 04-26-2023 Telephone encounter Jeremy Magallanes [facility] Start: 04-23-2023 End: 04-23-2023 ambulatory Jeremy Magallanes Other [employer] Other Start: 04-23-2023 Telephone encounter Jeremy Magallanes [facility] Start: 03-25-2023 End: 03-25-2023 ambulatory Jeremy Magallanes Other [employer] Other Start: 03-25-2023 Telephone encounter Jeremy Sona [facility] Start: 03-06-2023 End: 03-06-2023 ambulatory Jeremy Sona Other [employer] Other Start: 03-06-2023 Telephone encounter Jeremy Sona [facility] Start: 02-20-2023 End: 02-20-2023 ambulatory Jeremy Sona Other [employer] Other Start: 02-20-2023 Office outpatient vi sit 25 minutes Jeremy Sona [facility] Start: 02-05-2023 End: 02-05-2023 ambulatory Jeremy Sona Other [employer] Other Start: 02-05-2023 Telephone encounter Jeremy Sona [facility] Start: 01-21-2023 End: 01-21-2023 ambulatory Jeremy Sona Other [employer] Other Start: 01-21-2023 Telephone encounter Jeremy Sona [employer] Start: 01-17-2023 End: 01-17-2023 ambulatory Jeremy Sona Other [employer] Other Start: 01-17-2023 Office outpatient vi sit 15 minutes Jeremy Sona [facility] Start: 12-24-2022 End: 12-24-2022 ambulatory Jeremy Sona Other [employer] Other Start: 12-24-2022 Telephone encounter Jeremy Sona [facility] Start: 12-03-2022 End: 12-03-2022 ambulatory Jeremy Sona Other [employer] Other Start: 12-03-2022 Telephone encounter Jeremy Sona [facility] Start: 11-27-2022 End: 11-27-2022 ambulatory Jeremy Magallanes Other [employer] Other Start: 11-27-2022 Telephone encounter Jeremy Magallanes [facility] Start: 11-26-2022 End: 11-26-2022 ambulatory Jeremy Magallanes Other [employer] Other Start: 11-26-2022 Telephone encounter Jeremy Magallanes [facility] Start: 11-24-2022 End: 11-25-[address] JEREMY MAGALLANES Facility:H1 Start: 11-23-2022 End: 11-23-2022 ambulatory Jeremy Magallanes Other [employer] Other Start: 11-23-2022 Office outpatient vi sit 15 minutes Jeremy Magallanes [facility] Start: 11-05-2022 End: 11-05-2022 ambulatory Jeremy Magallanes Other [employer] Other Start: 11-05-2022 Telephone encounter Jeremy Magallanes [facility] Start: 10-03-2022 End: 10-03-2022 ambulatory Jeremy Magallanes Other [employer] Other Start: 10-03-2022 Telephone encounter Jeremy Magallanes [facility] Start: 09-04-2022 End: 09-04-2022 ambulatory Jeremy Magallanes Other [employer] Other Start: 09-04-2022 Office outpatient vi sit 25 minutes Jeremy Magallanes [facility] Start: 07-26-[address] JEREMY MAGALLANES Facil ity:H1 Start: 07-19-2022 End: 07-20-[address] WILFREDO ENGLE Facility:[facility]1 Start: 06-07-2022 End: 06-07-[address] JEREMY MAGALLANES Facility:[facility] Start: 03-15-2022 ambulatory KESHA TRUJILLO Facility:H 1 Start: 02-06-2022 End: 02-06-2022 ambulatory Kesha Trujillo Other [employer] Other Start: 02-06-2022 Office outpatient vi sit 25 minutes Kesha Trujillo [facility] Start: 02-02-2022 End: 02-03-2022 ambulatory KESHA TRUJILLO Facility:[facility]1 Start: 12-28-2021 End: 12-28-[address] JEREMY MAGALLANES Facility:[facility] Start: 12-12-2021 End: 12-13-2021 ambulatory KESHA TRUJILLO [employer] Other Start: 12-12-2021 Office outpatient ne w 30 minutes Kesha Trujillo [facility] Start: 05-26-2021 Office outpatient vi sit 15 minutes Harriet Ginty [facility] Procedures Date Procedure Procedure Detail Performing Clinician Start: 06-03-2024 Esophagogastroduodenoscopy Priyanka vázquez [employer] COUNTER ATTENDANT-BONE GRINDER Work Phone: Start: 06-03-2024 Level i surg [...] Td Vaccines (3 - Td or Tdap) [facility] Start: 05-27-2025 Adult BMI Screening [facility] Start: 05-27-2025 Tobacco Screening Tobacco Screening [facility] Start: 10-15-2024 Patient referral [facility] Work Phone: Start: 04-19-2024 Influenza vaccination Influenza Vaccine [facility] Start: 04-07-2024 End: 04-07-2024 Patient encounter procedure 04/07/2024 10:30 AM EDT Office Visit [facility] [address] [place] [address] Malathi Sanchez MD [address] [facility] [address] [place] [address] Arrived [facility] Comment on above: Arrived Start: 03-18-2024 Patient referral [facility] Work Phone: Start: 10-07-2023 End: 10-07-2023 Patient encounter procedure 10/07/2023 8:00 AM EST Office Visit [facility] [address] [place] [address] Barbie Jesus DO [address] [place] [address] [facility] Start: 2010 Administration of varicella zoster vaccine Zoster (Shingles) Vaccine (1 of 2) [facility] Start: 1978 Adult BMI Follow Up Plan Adult BMI Follow Up Plan [facility] Start: 1972 Depression Screening Depression Screening [facility] Start: 1960 Tobacco Counseling Tobacco Counseling [facility] Comprehensive metabo lic 2000 panel - Serum or Plasma [facility] CT Chest [facility] Neck W [facility] End: 05-27-2025 Esophagogastroduodenoscopy EGD GI Routine Dysphagia, unspecified type Black stools 1 Occurrences starting 05/27/2024 until 05/27/2025 [facility] Work Phone: Comment on above: 1 Occurrences starting 05/27/2024 until 05/27/2025 Patient referral [facility] Work Phone: XR Pelvis and Hip - bilateral Views [facility] Immunizations Immunization Date Immunization Notes Care Provider Fa cility 06-02-2018 Influenza, injectabl e, Madin Kyleigh Canine Kidney, preservative free, quadrivalent Argentina Clinton PT Work Phone: [facility] 06-02-2018 influenza virus vaccine, unspecified formulation Priyanka Vaz SANDWICH COUNTER ATTENDANT-BONE GRINDER Work Phone: [facility] [employer] 05-17-2017 influenza virus vaccine, split virus (incl. purified surface antigen) Jeremy Magallanes Other [employer] Other 05-17-2017 influenza virus vaccine, unspecified formulation [facility] 05-16-2017 influenza, injectabl e, quadrivalent, preservative free Argentina Clinton PT Work Phone: [facility] 06-28-2016 influenza, injectabl e, quadrivalent, preservative free Argentina Clinton PT Work Phone: [facility] 06-28-2016 tetanus and diphther ia toxoids, adsorbed, preservative free, for adult use (5 Lf of tetanus toxoid and 2 Lf of diphtheria toxoid) Jeremy Magallanes Other [facility] 05-25-2015 influenza, seasonal, injectable, preservative free Argentina Clinton PT Work Phone: [facility] 05-25-2015 tetanus and diphther ia toxoids, adsorbed, preservative free, for adult use (5 Lf of tetanus toxoid and 2 Lf of diphtheria toxoid) Jeremy Magallanes Other [facility] 06-15-1999 pneumococcal conjuga te vaccine, 7 valent Argentina Clinton PT Work Phone: [facility] Healthcare Payers Date Payer Category Payer Medicaid [id number] 2013 Medicare [id number] 1960 Unknown [id number] 2.16.84 0.1.440569.3.579.2.593 1960 Unknown [id number] 2.16.84 0.1.921836.3.579.2.593 1960 Unknown [id number] 2.16.84 0.1.443677.3.579.2.593 1960 Unknown [id number] 2.16.84 0.1.212363.3.579.2.593 1960 Unknown [id number] 2.16.84 0.1.412460.3.579.2.593 1960 Unknown [id number] 2.16.84 0.1.422347.3.579.2.593 1960 Unknown [id number] 2.16.84 0.1.188159.3.579.2.593 1960 Unknown [id number] 2.16.84 0.1.593065.3.579.2.593 1960 Unknown [id number] 2.16.84 0.1.396577.3.579.2.1259 1960 Unknown [id number] 2.16.84 0.1.380630.3.579.2.1259 1960 Unknown [id number] 2.16.84 0.1.590025.3.579.2.1259 1960 Unknown [id number] 2.16.84 0.1.807763.3.579.2.1259 1960 Unknown [id number] 2.16.840 .1.255807.3.579.2.1259 1960 Unknown [id number] 2.16.8 40.1.789544.3.579.2.1286 1960 Unknown [id number] 2.16.8 40.1.050138.3.579.2.727 1960 Unknown [id number] 2.16.8 40.1.097222.3.579.2.727 1960 Unknown [id number] 2.16. 840.1.793608.3.579.2.196 1960 Unknown [id number] 2.16. 840.1.592334.3.579.2.196 1960 Unknown [id number] 2.16. 840.1.238222.3.579.2.196 1960 Unknown [id number] 2.16. 840.1.451282.3.579.2.196 1959 Medicaid [id number] 2. 16.840.1.602931.19 1959 Medicare [id number] 2.1 [id number] Self-pay [id number] Social History Date Type Detail Facility Start: 09-29-2020 End: 09-02-2023 Sex Assigned At [facility] Tobacco smoking status [facility] Start: 06-03-2019 End: 03-27-2023 Tobacco smoking status [facility] Smokes tobacco daily [facility] Work Phone: History of tobacco use Cigarette Smoker N [facility] Start: 09-29-2020 End: 03-27-2023 Cigarettes smoked current (pack per day) - Reported 0.5 [facility] Start: 06-03-2019 End: 03-27-2023 Tobacco use and exposure Smokeless tobacco non-user [facility] Start: 09-02-2023 End: 05-27-2024 Alcohol intake Lifetime non-drinker (finding) [facility] Start: 03-27-2023 Alcohol Comment Caffine- Soda [facility] Start: 1960 Sex Assigned At Male [facility] Start: 08-21-2023 Gender identity Identifies as male gender (finding) [facility] Start: 08-21-2023 Sexual orientation Heterosexual (finding) [facility] Start: 02-06-2017 End: 02-16-2025 Tobacco smoking status MIIS Ex-smoker (finding) [facility] Tobacco smoking stat [facility] Tobacco smoking consumption unknown [facility] Start: 1960 Sex assigned at Not on file [facility] Frequency of Alcohol Consumption Never [facility] Start: 06-01-2019 End: 01-21-2025 Sex Male (finding) [facility] Medical Equipment Procedure Code Equipment Code [...] mellitus acute December 22, 2024 8: 19am [facility] Work Phone: 1(816) 682-452305-06-2025 Evaluation note* Diagnosis Onset Date Resolution Status Admit Date Bronchitis acute December 22, 2024 8:19am Bruising acute December 22, 2024 8:19am Enlarged prostate acute December 8:19am Screening PSA (prostate spec ific antigen) acute December 22, 2024 8: 19am Type II diabetes mellitus acute December 22, 2024 8:19am Bronchitis acute January 21, 2025 9:26am [facility] Work Phone: 1(661) 813-706203-19-2025 NoteProgress Note-Nurse LVM to talk about A1C level, he will be getting a one year card but will have to talk with his PCP about getting that number down.[facility] 10-15-2024 Evaluation note* Diagnosis Onset Date Resolution [...] diabetes mellitus acute December 22, 2024 8:19am [facility] Work Phone: 1(115) 653-919712-05-2024 Evaluation note* Diagnosis Onset Date Resolution Status Admit Date GERD (gastroesophageal reflu x disease) acute July 23 10:18am Lymphadenopathy acute July 23, 2024 10:18am Mass of left submandibular region acute July 23 10:18am Bladder diverticulum acute ua2024 8:52am Enlarged prostate acute 2024 8:52am Lymphadenopathy acute October 15, 2024 8:52am [facility] Work Phone: 1(185) 999-658610-25-2024 Miscellaneous Notes* Telephone Encounter - Evelyn Mendoza [...] Address verified with patient. documented in this encounterDelaware County HospitalSiva Therapeutics [facility] [id number] Telephone encounter Note* Telephone Encounter - Evelyn [...] risk of esophageal cancer. Thanks, Dr. Kc [facility]10-25-2024 Telephone encounter Note* Telephone Encounter - Evelyn Mendoza CMA - 06/12/2024 12:00 PM EDT Spoke with patient regarding pathology results. Patient verbally understood with no further questions. 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 Address verified with patient. [facility]10-09-2024 History of Present illness Narrative* Priyanka Vaz, SANDWICH COUNTER ATTENDANT-BONE GRINDER - 05/27/2024 2:30 PM EDT Images from [...] gallbladder polyp. He saw Dr. Martinez in [place] for this. He also reports a positive [...] confusion. Past Medical History: Diagnosis Date Cancer ([facility]) Chronic back pain COPD (chronic obstructive pulmonary disease) ([facility]) Dental disease full dentures Diabetes mellitus ([facility]) Shortness of breath Skin cancer MELANOMA & [...] patient/family/caregiver Referring and communicating with other health geriatric personal care aide Dysphagia, unspecified type [R13.10] CHARLEE BIGGS [facility] [place] This note was created with the assistance of a speech recognition program. While intending to generate a timely document that accurately reflects the content of the visit, no guarantee can be provided that every grammatical or spelling mistake has been or will be identified or corrected. Thank you for your understanding. CHARLEE Biggs 05/27/24 1555 documented in this encounterDelaware County HospitalSoundwave [id number] Telephone encounter Note* Telephone Encounter - Vivian Morley - 05/15/2024 11:35 AM EDT Images from the original note were not included. Consult from Dr. Jeremy Magallanes (Internal Medicine) [facility] Referral received from [...] completed: 04/08/2024 Barium Swallow 03/21/2024 CT Chest [facility]09-27-2024 Miscellaneous Notes* Telephone Encounter - Vivian Morley - 05/15/2024 11:35 AM EDT Images from the original note were not included. Consult from Dr. Jeremy Magallanes (Internal Medicine) [facility] Referral received from [...] included. Referral was sent from [facility] for new consult with Dr Meraz Please see below and advise [facility] in [facility] Telephone encounter Note * Telephone Encounter - Keily Martines - 05/14/2024 1:07 PM EDT Images from the original note were not included. Referral was sent from [facility] for new consult with Dr Meraz Please see below and advise [facility]09-16-2024 Telephone encounter Note* Telephone Encounter - Cynthia Sanchez - 05/04/2024 9:45 AM EDT Left message on sister's voice mail to contact Dr Magallanes's office for referral. [facility] HospitalQbyjsxkitn29-21-1904 Miscellaneous Notes* Telephone Encounter - Cynthia Sanchez [...] referral sent to Dr Ameya Meraz at [facility]. He is a gastrologist. The fax number is [phone] . Pt's sister would like a call back at [phone]. documented in this encounterBates County Memorial [id number] Telephone encounter Note* Telephone Encounter - Malathi Sanchez MD - 05/04/2024 9:27 AM EDT That needs to be done by Dr Magallanes's office [facility] [id number] Telephone encounter Note* Telephone Encounter - Cynthia Sanchez - 05/04/2024 9:15 AM EDT Pt's sister called in. She said her brother would like a referral sent to Dr Ameya Meraz at [facility]. He is a gastrologist. The fax number is [phone] . Pt's sister would like a call back at [phone]. [facility] [id number] History of Present illness Narrative* Malathi Sanchez MD - 04/07/2024 10:30 AM EDT Subjective Patient ID: Alex Craig is a 63 y.o. male who presents for Neck Mass (CT @ [facility] 02/26>[facility]) Pt reports he is getting [...] resolved. F/U if recurs documented in this [facility]02-14-2024 Telephone encounter Note* Telephone Encounter - Maris Tavera - 10/02/2023 1:35 PM EST No attempts to hear back; closing referral. [facility] [id number] Miscellaneous Notes* Telephone Encounter - Maris Tavera - 10/02/2023 1:35 PM EST No attempts to hear back; closing referral. documented in this [facility]01-26-2024 Evaluation note* Encounter Date Diagnosis Assessment Notes Treatment Notes Treatment Clinical Notes Aug, Chronic obstructive pulmonary disease, unspecified (ICD-10 - J44.9) Finish antibiotics and prednisone as prescribed. Denies pulmonary referral at this time. Hasn't smoked since 09/08 and declines chantix or patches. Aug, Current smoker (ICD-10 - F17.200) [employer] Other 01-23-2024 Evaluation note* Encounter Date Diagnosis Assessment Notes Treatment Notes Treatment Clinical Notes Aug, Lumbar radicular pain (ICD-10 - M54.16) [employer] Other 01-19-2024 Evaluation note* Encounter Date Diagnosis Assessment Notes Treatment Notes Treatment Clinical Notes Aug, Lumbar radicular pain (ICD-10 - M54.16) [employer] Other 12-26-2023 Evaluation note* Encounter Date Diagnosis Assessment Notes Treatment Notes Treatment Clinical Notes Jul, Type 2 diabetes mellitus with hyperglycemia, without long-term current use of insulin (ICD-10 - E11.65) [employer] Other 12-26-2023 Evaluation note* Encounter Date Diagnosis [...] T3s after shoulder pain has improved post-operatively. [employer] Other 12-04-2023 Evaluation note* Encounter Date Diagnosis Assessment Notes Treatment Notes Treatment Clinical Notes Jul, Type 2 diabetes mellitus with hyperglycemia, without long-term current use of insulin (ICD-10 - E11.65) [employer] Other 12-01-2023 Evaluation note* Encounter Date Diagnosis Assessment Notes Treatment Notes Treatment Clinical Notes Jul, Type 2 diabetes mellitus with hyperglycemia, without long-term current use of insulin (ICD-10 - E11.65) [employer] Other 11-30-2023 Evaluation note* Encounter Date Diagnosis Assessment Notes Treatment Notes Treatment Clinical Notes Jun, Labral tear of shoulder, right, subsequent encounter (ICD-10 - S43.431D) [employer] Other 11-14-2023 Evaluation note* Encounter Date Diagnosis [...] pain (ICD-10 - R07.9) r/o cardiac cause [employer] Other 11-07-2023 Evaluation note* Encounter Date Diagnosis [...] to decrease dose and possibly discontinue medication. [employer] Other 11-02-2023 Evaluation note* Encounter Date Diagnosis Assessment Notes Treatment Notes Treatment Clinical Notes Jun, Acute pain of right shoulder (ICD-10 - M25.511) [employer] Other 10-30-2023 Evaluation note* Encounter Date Diagnosis Assessment Notes Treatment Notes Treatment Clinical Notes May, Acute pain of right shoulder (ICD-10 - M25.511) [employer] Other 10-23-2023 Evaluation note* Encounter Date Diagnosis Assessment Notes Treatment Notes Treatment Clinical Notes May, Acute pain of right shoulder (ICD-10 - M25.511) [employer] Other 10-16-2023 Evaluation note* Encounter Date Diagnosis Assessment Notes Treatment Notes Treatment Clinical Notes May, Acute pain of right shoulder (ICD-10 - M25.511) [employer] Other 10-10-2023 Evaluation note* Encounter Date Diagnosis Assessment Notes Treatment Notes Treatment Clinical Notes May, Acute pain of right shoulder (ICD-10 - M25.511) MRI and surgery planning pending. Pt understands this is a controlled substance and to call in 1 week w update on treatment plan. May, Bronchitis (ICD-10 - J40) Finish antibiotic, rest, hydrate Steroids for wheezing. [employer] Other 10-04-2023 Evaluation note* Encounter Date Diagnosis Assessment Notes Treatment Notes Treatment Clinical Notes May, Acute pain of right shoulder (ICD-10 - M25.511) Reviewed OAR[place] and discussed short term plan of increase in pain medication. He is due for a refill of the T3s presently. Stop them, replace w norco. Pt understands weekly prescription and will need to d/c after anticipated surgery. [employer] Other 09-12-2023 Evaluation note* Encounter Date Diagnosis [...] office and the ER visit on 04/26 [employer] Other 07-05-2023 Evaluation note* Encounter Date Diagnosis [...] and will need less prn pain med. [employer] Other 06-01-2023 Evaluation note* Encounter Date Diagnosis [...] left shoulder (ICD-10 - M25.512) as above. [employer] Other 04-17-2023 Evaluation note* Encounter Date Diagnosis Assessment Notes Treatment Notes Treatment Clinical Notes Nov, Bronchitis (ICD-10 - J40) [employer] Other 04-11-2023 Evaluation note* Encounter Date Diagnosis Assessment Notes Treatment Notes Treatment Clinical Notes Nov, Disc degeneration, lumbar (ICD-10 - M51.36) Nov, Lumbar radicular pain (ICD-10 - M54.16) [employer] Other 04-07-2023 Evaluation note* Encounter Date Diagnosis [...] quit smoking. Pt verbalizes understanding and agreement. [employer] Other 02-15-2023 Evaluation note* Encounter Date Diagnosis Assessment Notes Treatment Notes Treatment Clinical Notes Sep, Lumbar radicular pain (ICD-10 - M54.16) [employer] Other 01-17-2023 Evaluation note* Encounter Date Diagnosis [...] is outlined on the test result page. [employer] Other 10-20-2022 NoteIndication: Calculus in kidney. Comparison: [...] Electronically authenticated by: JOHN PINTO Date: 2022-06-07 20:07[facility]06-21-20[facility] Evaluation note* Encounter Date Diagnosis Assessment [...] of repair, infection and wound healing delays. [employer] Other 04-26-2022 NotePROCEDURE: XR SHOULDER LT 2V or > COMPARISON: None. HISTORY: Pain of left shoulder joint FINDINGS: BONES:No acute fracture or dislocation. 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 No visible soft tissue swelling. EFFUSION:None visible. OTHER: Negative. IMPRESSION: Mild osteoarthritis Electronically authenticated by: BARBIE MEMBRENO Date: 2021-12-12 15:[address] [place], [place] [address]04-26-2022 Evaluation note* Encounter Date Diagnosis Assessment Notes [...] pain of left shoulder (ICD-10 - M25.512) [facility] [employer] Other 10-08-2021 Evaluation note* Encounter Date Diagnosis [...] as needed for cough. Advised patient that Stendal contains antihistamine and cough suppressant and to be cautious using other OTC cold medications. Patient to follow up with PCP if symptoms do not improve. Immediate eval if SOB, difficulty breathing, chest pain, dizziness, or other concerning symptoms. Patient verbalizes understanding and is agreeable to treatment plan [facility] [employer] Other Evaluation + Plan note No data available for this section [facility] noteNo InformationNortMeadows [facility] [employer] Other Evaluation note* Diagnosis Onset Date Resolution Status Arthralgia acute Lumbar pain acute Type II diabetes mellitus ac [facility] Work Phone: Evaluation note* Diagnosis Onset Date Resolution Status Arthralgia acute Lumbar pain acute Type II diabetes mellitus ac [place] Bilateral hip pain acute [facility] Work Phone: Evaluation note* Diagnosis Onset Date Resolution Status Arthralgia acute Lumbar pain acute Type II diabetes mellitus ac [place] Bilateral hip pain acute Lumbar pain acute [facility] Work Phone: Evaluation note* Diagnosis Onset Date Resolution Status Submandibular abscess acute Chronic obstructive pulmonary disease, unspecified acute Esophageal abnormality acute Mass of left submandibular region [facility] Work Phone: Evaluation note* Diagnosis Onset Date Resolution Status Chronic obstructive pulmonary disease, unspecified acute Esophageal abnormality acute Mass of left submandibular region [facility] Work Phone: Evaluation note* Diagnosis Onset Date Resolution Status 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 Hiatal hernia acute [facility] Work Phone: Evaluation note* Diagnosis Esophageal dysphagia- Primary Dysphagia, pharyngoesophageal phase Neck mass Swelling, mass, or lump in head and neck documented in this encounter [facility] HealthcareEvaluation note* Diagnosis Dysphagia, unspecified type- Primary Black stools Nonspecific abnormal finding in stool contents Gastroesophageal reflux disease, unspecified whether esophagitis present Abnormal esophagram documented in this encounter [facility]* Diagnosis Dysphagia, unspecified type Black stools Nonspecific abnormal finding in stool contents [facility] encounter [facility] - Reported* Type Description Date Medical History Asthma Medical History skin cancer-lip Surgical History Left lung biopsy 1977 Surgical History L4 and L5 disc fusion 1984 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 Surgical History carpal tunnel release 2016 Surgical History tonsillectomy Hospitalization History 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 Hospitalization History pneumonia [employer] Other Hospital Discharge instructions No data available for this section [facility]* Referral to ENT Time Frame: 03/18/24, Location: None [facility] Work Phone: Hospital Discharge instructionsAmbulatory Orders* Referral to Urology Time Frame: 10/15/24, Location: None [facility] Work Phone: InstructionsNot on filedocumented in this encounter [facility] SystemInstructionsNot on filedocumented in this encounter [facility] SystemInstructionsNot on filedocumented in this encounter [facility] SystemProgress note No data available for this section [facility]Reason [facility] (narrative)No reason for referral [facility] Work Phone: Summary Purpose Family History No [...] 1 Epigastric abdominal pain (R10.13) Referral Organization [facility] [employer] Referring Provider First Name Jeremy Referring Provider Last Name Sona Referring Provider Specialty [facility] [employer] Referred Organization [facility] Referred Provider Sai Martinez Referred Address ,[place], [place],[address] Referred Provider Specialty Surgery Referral Priority Routine General Notes Es Camilo 11:38:02 AM >received today, attachments made, notes locked, referral faxed Reason 01/28/23 Access Or tho - B shoulder pain L>R - hopes for injections. Diagnosis 1 Pain in right should er (M25.511) Referral Organization [facility] [employer] [facility] omar Referring Provider First Name Jeremy Referring Provider Last Name Sona Referring Provider [facility] [employer] Referred Organization [facility] Referred Provider aBrbie Jesus Referred Address ,[place], [place],[address] Referred Provider Specialty Orthopaedic Surgery Referral Priority [...] in right should er (M25.511) Referral Organization [facility] Referring Provider First Name Jeremy Referring Provider Last Name Sona Referring Provider Specialty [facility] Referred Organization [facility] Referred Provider Barbie Jesus Referred Address ,[place], [place] Referred Provider Specialty Orthopaedic Surgery Referral Priority [...] call back reinier. 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 Reason Comments Neck Mass CT @ [facility] 02/26>[facility] Reason Comments postive cologuard LAST [...] DATE CREATED AUTHOR AUTHOR'S ORGANIZ ATION 04/08/2024 [facility] EPIC DATE CREATED AUTHOR AUTHOR'S ORGANIZ ATION 05/23/2024 [facility] DATE CREATED AUTHOR AUTHOR'S ORGANIZ ATION 05/29/2024 [facility] DATE CREATED AUTHOR AUTHOR'S ORGANIZ ATION 06/12/2024 [facility] DATE CREATED AUTHOR AUTHOR'S ORGANIZ ATION 11/06/2024 Sargent Gagan [facility] DATE CREATED AUTHOR AUTHOR'S ORGANIZ ATION 11/11/2024 Hallam Gagan [facility] DATE CREATED AUTHOR AUTHOR'S ORGANIZ ATION 04/11/2025 [facility] Patient Care team informatio n (unrecognized [...] Provider Active Start : October 23, 2023 Special Agent In Charge Relationship Specialty [place] [address] [place] [phone] PCP - General Family Medicine 01/23/23 Team Status: Inactive Member Role Status Dates Jeremy Magallanes MD Attending Provider Active St art: September 13, 2023 End: September 13, 2023 Special Agent In Charge Relationship Specialty Start Date End Date Jeremy Magallanes MD [address] [place] [phone] Referring Family Medicine 05/12/24 Special Agent In Charge Relationship Specialty Start Date End Date Jeremy Magallanes MD [address] [place] [phone] PCP - General Family Medicine 01/23/23 Special Agent In Charge Relationship Specialty Start Date End Date Jeremy Magallanes MD [address] [place] [phone] PCP - General Family Medicine 01/23/23 Special Agent In Charge Relationship Specialty Start Date End Date Jeremy Magallanes MD [address] [place] [phone] PCP - General Family Medicine 01/23/23 Special Agent In Charge Relationship Specialty Start Date End Date Jeremy Magallanes MD [address] [place] [address] PCP - General Family Medicine 06/03/19 Special Agent In Charge Relationship Specialty Start Date End Date Jeremy Magallanes MD [address] [place] [address] PCP - General Family Medicine 06/03/19 Special Agent In Charge Relationship Specialty Start Date End Date Jeremy Magallanes MD [address] [place] [address] PCP - General Family Medicine 06/03/19 Special Agent In Charge Relationship Specialty Start Date End Date Jeremy Magallanes MD [address] [place] [address] PCP - General Family Medicine 06/03/19 Team [...] or prosecute any alcohol or drug abuse patient.[facility] FOR RECORDS PERTAINING TO PATIENTS WHO [...] BE BASED ON THE PRIMARY CLINICAL RECORDS. [facility]. provides no warranty or guarantee of the accuracy or completeness of information in this document.
[2025-04-26 14:13] VITALS: PULSE 77; O2SAT 99
[2025-04-26 14:14] VITALS: BP 129/73; BP 145/67; PULSE 75; O2SAT 96
[2025-04-26] MEDS: BUPIVACAINE HCL 0.25% PF 25 MG/10 ML VIAL 9 ML INJ (14:21)
[2025-04-26] MEDS: IOHEXOL 240 MG/ML - 10 ML VIAL 12 MG INJ (14:21)
[2025-04-26] MEDS: LIDOCAINE HCL 2% 400 MG/20 ML MDV INJ (14:21)
[2025-04-26] MEDS: METHYLPREDNISOLONE ACETATE 40 MG/ML VIAL IM (14:21)
--- NOTE | 2025-04-26 14:21 | W.PM.PROCNOT ---
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 A timeout was completed verifying the correct patient, procedure site, position, and special equipment.? The right T9 rib was contacted with the needle tip 1 cm lateral to the costotransverse junction and the needle tip was walked caudally.? Omnipaque dye was injected to show adequate spread.? The above-mentioned injectate was placed in 1 mL aliquots and the procedure was repeated at right T10, 11.? The patient tolerated the procedures well and was found suitable for discharge in the accompaniment of a responsible adult. Anesthesia: Local Surgeon: Zacarias Pike Pathology: none sent Condition: stable Disposition: no change
== END 2025-04-26 14:25 | disposition home or self-care (01) ==
LOC: SURGOUT 12:47
PROVIDERS: PCP Family Medicine; Visit Provider Anesthesiology
DX: G58.0 Intercostal neuropathy (principal); E11.8 Type 2 diabetes mellitus with unspecified complications; Z79.84 Long term (current) use of oral hypoglycemic drugs
CPT/HCPCS: 36415; 64420; 64421; 82948; J0665; J1010; Q9966

== ENCOUNTER 2025-05-05 08:19 | Outpatient (OUT) | payer MEDICARE, MEDICAID, SELFPAY ==
--- OUTSIDE RECORDS SUMMARY | 2025-05-05 08:25 | XMS_ITS | CCD ---
Author Organization [facility] Care Team Providers Care Community Development Manager Name Role Phone Ronnie Kesha Unavailable Chepe Harriet Unavailable Jeremy Magallanes Unavailable SONA, DR JEREMY Jovel Admitting Unavailable MAGALLANES, DR JEREMY Jovel Attending Unavailable MAGALLANES, DR JEREMY Jovel Primary Care Unavailable MAGALLANES, DR JEREMY Jovel Consulting Unavailable TAVERASRUBI Consulting Unavailable OLEXA, KESHA Admitting Unavailable OLEXA, KESHA Attending Unavailable MAGALLANES, DR JEREMY Jovel Primary Care Unavailable [place], DR BARBIE Goldberg Consulting Unavailable OLEXA, KESHA [...] Care Provider CHIKIS, Ligia Boggs Attending Unavailable CHIKIS, Ligia T Admitting Unavailable CHIKIS Ligia T Attending Unavailable CHIKIS, Ligia T Attending Unavailable CHIKISLigia OLIVA T Admitting Unavailable Jeremy Magallanes MD Primary Care Provider Jeremy Magallanes MD Attending Provider Arnoldo Somers MD Attending Provider Giedraitis , Andrius Vyttin Attending Unavailable Giedraitis , Andrius Vytautchela Attending Unavailable Giedraitis , Andrius Vytautas Attending Unavailable Giedraitis , Andrius Vytautas Attending Unavailable Giedraitis , Andrius Vytautchela Attending Unavailable Allergies Allergy Classification Reported Allergen(s) Allergy Type Date of Onset Reaction(s) Facility (20 sources) Ibuprofen Drug Allergy [facility] Other (20 sources) olodaterol / tiotropium Drug Allergy shortness of breath Located Within [facility] Other (20 sources) CT Scan dye Propensity to adverse reactions [facility] Other (13 sources) Ibuprofen; Translations: [IBUPROFEN] Drug Allergy 08-19-18 80 hives [facility] (2 sources) Iodine (And Iodine Containting Drugs) Drug allergy (disorder) 09-07-19 16 [facility] (1 source) NSAIDs Drug allergy (disorder) [facility] (20 sources) fentaNYL Drug Allergy 12-05-19 24 Unknown, [facility] (12 sources) Ibuprofen Drug Allergy 01-15-20 15 Rash, [facility] (20 sources) Ofloxacin Drug Allergy 12-05-19 24 Unknown, [facility] (3 sources) zafirlukast Drug Allergy 01-15-20 15 Unknown [facility] Other (20 sources) Zafirlukast *ANTIASTHMATIC AND BRONCHODILATOR AGEN Propensity to adverse reactions Unknown [facility] Other (20 sources) Ibuprofen & Diet Manage Prod *ANALGESICS - ANTI-IN Propensity to adverse reactions Unknown [facility] Other (3 sources) Allergies Reconciled Propensity to adverse reactions Unknown [facility] Other (20 sources) Iodinated contrast media (substance) Drug allergy 06-03-20 19 Rash, [facility] Other (3 sources) patient allergy list reviewed by nurse or physicia Propensity to adverse reactions 10-05-19 16 Comment:Done [facility] Other (14 sources) olodaterol Drug Allergy 12-05-19 24 shortness of breath [facility] (14 sources) tiotropium Drug Allergy 12-05-19 24 shortness of breath [facility] (11 sources) Iodinated Contrast Media; Translations: [IODINATED CONTRAST MEDIA] Allergy to substance 06-03-20 19 [facility] (10 sources) Ibuprofen & Diet Manage Prod * Allergy to substance 12-04-19 [facility] Comment on above: Free Text Allergy: I buprofen & Diet Manage Prod *ANALGESICS - ANTI-IN (10 sources) Zafirlukast *ANTIASTHMATIC AND Allergy to substance 12-04-19 [facility] Comment on above: Free Text Allergy: Z afirlukast *ANTIASTHMATIC AND BRONCHODILATOR AGEN (3 sources) DULoxetine Drug Allergy 04-07-20 GI intolerance [facility] (2 sources) cefdinir Drug Allergy 01-22-20 25 Vomiting [facility] Comment on above: nausea, vomiting Medications [...] hrs for 30 days Feb, Active Start: 07-05-2023 take 1 tablet by desirae th every [...] Sep, Active take 2 tablets by mo [facility] every four hours as needed acetaminophen-codeine (TYLENOL [...] as needed Orally every 6 hrs Active [id number] 200 actuat albuterol 0.09 mg/actuat metered dose [...] Start: 07-19-2023 take 2 tablets by mo [facility] in [...] Start: 11-23-2022 take 2 tablets by mo 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 therapy; Translations: [OTH SKILLED NURSING CURRENT DRUG THERAPY] Onset: 12-29-2021 Episodic Other [...] Lactate [Moles/Vol] 2.6 mmol/L Critically high 0.4-2.0 [facility] Comment on above: RESULTS CALLED TO GAURI SRINIVASAN RN at 0220 Basophils Auto (Bld) [#/Vol] on 12-22-2024 Basophils (Bld) [#/Vol] Automated basophil count 0.0-0.1 [facility] Basophils (Bld) [#/Vol] 0.0 10 3/uL 0.0-0.1 [facility] Basophils/100 WBC Auto (Bld) on 12-22-2024 Basophils/100 WBC (Bld) Automated basophil % 0.2-2.0 [facility] Basophils/100 WBC (Bld) 0.6 % 0.2-2.0 [facility] Basophils/100 WBC Manual cnt (Bld)on 12-22-2024 Basophils/100 WBC (Bld) Basophils/100 leukocytes in Blood by Manual count Low 0.2-2.0 [facility] Basophils/100 WBC (Bld) 0.0 % Low 0.2-2.0 [facility] Eosinophils/100 WBC Auto (Bl d)on 12-22-2024 Eosinophils/100 WBC (Bld) Automated eosinophil % 0.9-7.0 [facility] Eosinophils/100 WBC (Bld) 2.0 % 0.9-7.0 [facility] Eosinophils/100 WBC Manual c nt (Bld)on 12-22-2024 Eosinophils/100 WBC (Bld) Eosinophils/100 leukocytes in Blood by Manual count Low 0.9-7.0 [facility] Eosinophils/100 WBC (Bld) 0.0 % Low 0.9-7.0 [facility] Erythrocyte distribution wid th Auto (RBC) [Ratio]on 12-22-2024 Erythrocyte distribution width (RBC) [Ratio] 13.5 % 11.0-15.0 [facility] Estimated glomerular filtrat ion rate (GFR) non- Americanon 12-22-2024 GFR/1.73 sq M.predicted among non-blacks MDRD (S/P/Bld) [Vol rate/Area] Estimated glomerular filtration rate (GFR) non- Low >=60 mL/min/1.73m 2 [facility] GFR/1.73 sq M.predicted among non-blacks MDRD (S/P/Bld) [Vol rate/Area] 59 mL/min/{1.73_m2} Low >=60 mL/min/1.73m 2 [facility] Globulin Calc (S) [Mass/Vol] on 12-22-2024 Globulin (S) [Mass/Vol] Serum globulin measurement by calculation (mass/volume) [facility] Globulin (S) [Mass/Vol] 3.6 g/dL [facility] Glucose mean value [Mass/vol ume] in Blood Estimated from glycated hemoglobinon 12-22-2024 Average glucose Estimated from glycated hemoglobin (Bld) [Mass/Vol] Glucose mean value [Mass/volume] in Blood Estimated from glycated hemoglobin [facility] Average glucose Estimated from glycated hemoglobin (Bld) [Mass/Vol] 192 mg/dL [facility] Hematocrit Auto (Bld) [Volum e fraction]on 12-22-2024 Hematocrit (Bld) [Volume fraction] 56.3 % High 42.0-54.0 [facility] Hemoglobin A1c percentageon 12-22-2024 HbA1c (Bld) [Mass fraction] Hemoglobin A1c percentage High 4.5-6.2 [facility] Comment on above: ADA RECOMMENDED LIMI T 4.0 - 6.0ADA THERAPEUTIC TARGET < 7.0ACTION SUGGESTED> 7.0 HbA1c (Bld) [Mass fraction] 8.3 % High 4.5-6.2 [facility] Comment on above: ADA RECOMMENDED LIMI T 4.0 - 6.0ADA THERAPEUTIC TARGET < 7.0ACTION SUGGESTED> 7.0 Hemoglobin [Mass/volume] in Bloodon 12-22-2024 Hemoglobin (Bld) [Mass/Vol] 18.9 g/dL High 14.0-18.0 [facility] Laboratory - Chemistry and C hemistry - challengeon 12-22-2024 Albumin [Mass/Vol] 4.3 g/dL 3.4-5.0 [facility] ALP [Catalytic activity/Vol] 121 U/L High 46-116 [facility] ALT [Catalytic activity/Vol] 46 U/L 16-63 [facility] AST [Catalytic activity/Vol] 17 U/L 15-37 [facility] Bilirubin [Mass/Vol] 0.4 mg/dL 0.2-1.0 [facility] Calcium [Mass/Vol] 9.7 mg/dL 8.5-10.1 [facility] Chloride [Moles/Vol] 99 mmol/L 98-107 [facility] CO2 [Moles/Vol] 21.7 mmol/L 21.0-32.0 [facility] Creatinine [Mass/Vol] 1.24 mg/dL 0.70-1.30 [facility] GFR/1.73 sq M.predicted MDRD (S/P/Bld) [Vol rate/Area] mL/min/{1.73_m2} >=60 mL/min/1.73m 2 [facility] Glucose [Mass/Vol] 278 mg/dL High 74-106 [facility] Lactate [Moles/Vol] 2.3 mmol/L Critically high 0.4-2.0 [facility] Comment on above: RESULTS CALLED TO DIONE CABALLERO RN at 0009 Lipase [Catalytic activity/Vol] 31.0 U/L 16.0-77.0 [facility] Potassium [Moles/Vol] 4.6 mmol/L 3.5-5.1 [facility] Protein [Mass/Vol] 7.9 g/dL 6.4-8.2 [facility] Sodium [Moles/Vol] 133 mmol/L Low 136-145 [facility] Urea nitrogen [Mass/Vol] 15.0 mg/dL 7.0-18.0 [facility] Urea nitrogen/Creatinine [Mass ratio] 12.1 mg/mg [facility] TSH Qn 1.532 m[IU]/L 0.358-3.740 [facility] Laboratory - Hematology and Cell countson 12-22-2024 Lymphocytes/100 WBC (Bld) 1.0 % Low 20.5-60.0 [facility] Monocytes/100 WBC (Bld) 7.0 % 1.7-12.0 [facility] Immature granulocytes/100 WBC (Bld) 0.2 % 0.0-0.5 [facility] Leukocytes [#/volume] correc jean claude for nucleated erythrocytes in Blood by Automated counon 12-22-2024 WBC corrected for nucl RBC Auto (Bld) [#/Vol] 14.4 10 3/uL High 4.0-11.0 [facility] Lymphocytes Auto (Bld) [#/Vo l]on 12-22-2024 Lymphocytes (Bld) [#/Vol] Lymphocytes [#/volume] in Blood by Automated count 1.2-3.8 [facility] Lymphocytes (Bld) [#/Vol] 2.1 10 3/uL 1.2-3.8 [facility] Lymphocytes/100 WBC Auto (Bl d)on 12-22-2024 Lymphocytes/100 WBC (Bld) Lymphocytes/100 leukocytes in Blood by Automated count 20.5-60.0 [facility] Lymphocytes/100 WBC (Bld) 31.7 % 20.5-60.0 [facility] MCH Auto (RBC) [Entitic mass ]on 12-22-2024 MCH (RBC) [Entitic mass] 29.7 pg 25.9-34.0 [facility] MCHC Auto (RBC) [Mass/Vol]on 12-22-2024 MCHC (RBC) [Mass/Vol] 33.6 g/dL 29.9-35.2 [facility] MCV Auto (RBC) [Entitic vol] on 12-22-2024 MCV (RBC) [Entitic vol] 88.5 fL 80.0-94.0 [facility] Microalbumin [Mass/volume] i n Urineon 12-22-2024 Albumin DL <= 20 mg/L (U) [Mass/Vol] Microalbumin [Mass/volume] in Urine <=30.0 [facility] Albumin DL <= 20 mg/L (U) [Mass/Vol] 2.0 mg/dL <=30.0 [facility] Monocytes Auto (Bld) [#/Vol] on 12-22-2024 Monocytes (Bld) [#/Vol] Automated blood monocyte count 0.3-0.8 [facility] Monocytes (Bld) [#/Vol] 0.7 10 3/uL 0.3-0.8 [facility] Monocytes/100 WBC Auto (Bld) on 12-22-2024 Monocytes/100 WBC (Bld) Automated monocyte % 1.7-12.0 [facility] Monocytes/100 WBC (Bld) 10.7 % 1.7-12.0 [facility] Neutrophils Auto (Bld) [#/Vo l]on 12-22-2024 Neutrophils (Bld) [#/Vol] Neutrophils [#/volume] in Blood by Automated count 1.4-6.5 [facility] Neutrophils (Bld) [#/Vol] 3.6 10 3/uL 1.4-6.5 [facility] Neutrophils/100 WBC Auto (Bl d)on 12-22-2024 Neutrophils/100 WBC (Bld) Automated neutrophil % 43.0-75.0 [facility] Neutrophils/100 WBC (Bld) 54.8 % 43.0-75.0 [facility] No Panel Informationon 12-22 Absolute Basophils (Manual) 0.00 10 3/uL 0.00-0.10 [facility] Eosinophils # (Manual) 0.00 10 3/uL 0.00-0.70 [facility] Lymphocytes # (Manual) 0.14 10 3/uL Low 1.20-3.80 [facility] Monocytes # (Manual) 1.00 10 3/uL High 0.30-0.80 [facility] Segmented Neutrophils # (Manual) 13.24 10 3/uL High 1.4-6.5 [facility] Troponin I High Sensitivity <4.0 pg/mL Low 4.0-76.1 [facility] Comment on above: CUT-OFF POINTS HAVE [...] Eosinophils # (Auto) 0.1 10 3/uL 0.0-0.7 [facility] Immature Granulocyte # (Auto) 0.01 10 3/uL 0.00-0.03 [facility] Prostate Specific Antigen Screen 0.89 ng/mL <=4.00 [facility] Urine Random Creatinine 79.28 mg/dL 20.00-300.00 [facility] Platelet mean volume Auto (B ld) [Entitic vol]on 12-22-2024 Platelet mean volume (Bld) [Entitic vol] 9.4 fL Low 9.5-13.5 [facility] Platelets Auto (Bld) [#/Vol] on 12-22-2024 Platelets (Bld) [#/Vol] 319 10 3/uL 150-450 [facility] RBC Auto (Bld) [#/Vol]on RBC (Bld) [#/Vol] 6.36 10 6/uL High 4.70-6.10 [facility] Segmented neutrophils/100 WB C Manual cnt (Bld)on 12-22-2024 Segmented neutrophils/100 WBC (Bld) Manual blood segmented neutrophils/100 leukocytes High 43.0-75.0 [facility] Segmented neutrophils/100 WBC (Bld) 92.0 % High 43.0-75.0 [facility] Serum or plasma albumin/glob ulin mass ratioon 12-22-2024 Albumin/Globulin [Mass ratio] Serum or plasma albumin/globulin mass ratio [facility] Albumin/Globulin [Mass ratio] 1.2 {ratio} [facility] Serum or plasma anion gap de terminationon 12-22-2024 Anion gap [Moles/Vol] Serum or plasma anion gap determination [facility] Anion gap [Moles/Vol] 16.9 mmol/L [facility] microalbumin/creatinin e mass ratioon 12-22-2024 Albumin/Creatinine DL <= 20 mg/L (U) [Mass ratio] Urine microalbumin/creatin ine mass ratio 0.0-29.9 [facility] Comment on above: NO MICROALBUMINURIA 0-29 MG/GCLINICAL MICROALBUMINURIA 30-300 MG/GMACROALBUMINURIA >300 MG/G Albumin/Creatinine DL <= 20 mg/L (U) [Mass ratio] 25.2 mg/g 0.0-29.9 [facility] Comment on above: NO MICROALBUMINURIA 0-29 MG/GCLINICAL MICROALBUMINURIA 30-300 MG/GMACROALBUMINURIA >300 MG/G CHEMISTRYOrdered By: Sonia Brandt on 11-04-2024 HbA1c (Bld) [Mass fraction] 9.5 % High <=5.9% [facility] ChemAutoSS [id number] 11-04-2024 HbA1c (Bld) [Mass fraction] 9.5 % High <=5.9 [facility] Comment on above: Performed By: #### [id number] #### [facility] [address] [place] [address] Basophils Auto (Bld) [#/Vol] on 10-11-2024 Basophils (Bld) [#/Vol] Automated basophil count 0.0-0.1 [facility] Basophils/100 WBC Auto (Bld) on 10-11-2024 Basophils/100 WBC (Bld) Automated basophil % 0.2-2.0 [facility] Eosinophils/100 WBC Auto (Bl d)on 10-11-2024 Eosinophils/100 WBC (Bld) Automated eosinophil % 0.9-7.0 [facility] Erythrocyte distribution wid th Auto (RBC) [Ratio]on 10-11-2024 Erythrocyte distribution width (RBC) [Ratio] Erythrocyte distribution width [Ratio] by Automated count 11.0-15.0 [facility] Estimated glomerular filtrat ion rate (GFR) non- Americanon 10-11-2024 GFR/1.73 sq M.predicted among non-blacks MDRD (S/P/Bld) [Vol rate/Area] Estimated glomerular filtration rate (GFR) non- >=60 mL/min/1.73m 2 [facility] Globulin Calc (S) [Mass/Vol] on 10-11-2024 Globulin (S) [Mass/Vol] Serum globulin measurement by calculation (mass/volume) [facility] Hematocrit Auto (Bld) [Volum e fraction]on 10-11-2024 Hematocrit (Bld) [Volume fraction] Hematocrit [Volume Fraction] of Blood by Automated count 42.0-54.0 [facility] Hemoglobin [Mass/volume] in Bloodon 10-11-2024 Hemoglobin (Bld) [Mass/Vol] Hemoglobin [Mass/volume] in Blood 14.0-18.0 [facility] Laboratory - Chemistry and C hemistry - challengeon 10-11-2024 Albumin [Mass/Vol] 3.5 g/dL 3.4-5.0 [facility] ALP [Catalytic activity/Vol] 102 U/L 46-116 [facility] ALT [Catalytic activity/Vol] 39 U/L 16-63 [facility] AST [Catalytic activity/Vol] 13 U/L Low 15-37 [facility] Bilirubin [Mass/Vol] 0.2 mg/dL 0.2-1.0 [facility] Calcium [Mass/Vol] 9.1 mg/dL 8.5-10.1 [facility] Chloride [Moles/Vol] 102 mmol/L 98-107 [facility] CO2 [Moles/Vol] 28.4 mmol/L 21.0-32.0 [facility] Creatinine [Mass/Vol] 0.97 mg/dL 0.70-1.30 [facility] GFR/1.73 sq M.predicted MDRD (S/P/Bld) [Vol rate/Area] mL/min/{1.73_m2} >=60 mL/min/1.73m 2 [facility] Glucose [Mass/Vol] 317 mg/dL High 74-106 [facility] Potassium [Moles/Vol] 4.3 mmol/L 3.5-5.1 [facility] Protein [Mass/Vol] 6.7 g/dL 6.4-8.2 [facility] Sodium [Moles/Vol] 136 mmol/L 136-145 [facility] Urea nitrogen [Mass/Vol] 14.0 mg/dL 7.0-18.0 [facility] Urea nitrogen/Creatinine [Mass ratio] 14.4 mg/mg [facility] Laboratory - Hematology and Cell countson 10-11-2024 Immature granulocytes/100 WBC (Bld) 0.2 % 0.0-0.5 [facility] Leukocytes [#/volume] correc jean claude for nucleated erythrocytes in Blood by Automated counon 10-11-2024 WBC corrected for nucl RBC Auto (Bld) [#/Vol] Leukocytes [#/volume] corrected for nucleated erythrocytes in Blood by Automated coun 4.0-11.0 [facility] Lymphocytes Auto (Bld) [#/Vo l]on 10-11-2024 Lymphocytes (Bld) [#/Vol] Lymphocytes [#/volume] in Blood by Automated count 1.2-3.8 [facility] Lymphocytes/100 WBC Auto (Bl d)on 10-11-2024 Lymphocytes/100 WBC (Bld) Lymphocytes/100 leukocytes in Blood by Automated count 20.5-60.0 [facility] MCH Auto (RBC) [Entitic mass ]on 10-11-2024 MCH (RBC) [Entitic mass] MCH [Entitic mass] by Automated count 25.9-34.0 [facility] MCHC Auto (RBC) [Mass/Vol]on 10-11-2024 MCHC (RBC) [Mass/Vol] MCHC [Mass/volume] by Automated count 29.9-35.2 [facility] MCV Auto (RBC) [Entitic vol] on 10-11-2024 MCV (RBC) [Entitic vol] MCV [Entitic volume] by Automated count 80.0-94.0 [facility] Monocytes Auto (Bld) [#/Vol] on 10-11-2024 Monocytes (Bld) [#/Vol] Automated blood monocyte count 0.3-0.8 [facility] Monocytes/100 WBC Auto (Bld) on 10-11-2024 Monocytes/100 WBC (Bld) Automated monocyte % 1.7-12.0 [facility] Neutrophils Auto (Bld) [#/Vo l]on 10-11-2024 Neutrophils (Bld) [#/Vol] Neutrophils [#/volume] in Blood by Automated count 1.4-6.5 [facility] Neutrophils/100 WBC Auto (Bl d)on 10-11-2024 Neutrophils/100 WBC (Bld) Automated neutrophil % 43.0-75.0 [facility] No Panel Informationon 10-11 Eosinophils # (Auto) 0.2 10 3/uL 0.0-0.7 [facility] Immature Granulocyte # (Auto) 0.02 10 3/uL 0.00-0.03 [facility] Platelet mean volume Auto (B ld) [Entitic vol]on 10-11-2024 Platelet mean volume (Bld) [Entitic vol] Platelet mean volume [Entitic volume] in Blood by Automated count Low 9.5-13.5 [facility] Platelets Auto (Bld) [#/Vol] on 10-11-2024 Platelets (Bld) [#/Vol] Platelets [#/volume] in Blood by Automated count 150-450 [facility] RBC Auto (Bld) [#/Vol]on RBC (Bld) [#/Vol] Erythrocytes [#/volume] in Blood by Automated count 4.70-6.10 [facility] Serum or plasma albumin/glob ulin mass ratioon 10-11-2024 Albumin/Globulin [Mass ratio] Serum or plasma albumin/globulin mass ratio [facility] Serum or plasma anion gap de terminationon 10-11-2024 Anion gap [Moles/Vol] Serum or plasma anion gap determination [facility] Estimated glomerular filtrat ion rate (GFR) non- Americanon 08-26-2024 GFR/1.73 sq M.predicted among non-blacks MDRD (S/P/Bld) [Vol rate/Area] Estimated glomerular filtration rate (GFR) non- >=60 mL/min/1.73m 2 [facility] Laboratory - Chemistry and C hemistry - challengeon 08-26-2024 Creatinine [Mass/Vol] 1.02 mg/dL 0.70-1.30 [facility] GFR/1.73 sq M.predicted MDRD (S/P/Bld) [Vol rate/Area] mL/min/{1.73_m2} >=60 mL/min/1.73m 2 [facility] EGDon 06-03-2024 [facility] No Panel InformationOrdered By: Rosalia Shea on 06-03-2024 [facility] No Panel InformationOrdered By: Bill Henry on 06-03-2024 Miscellaneous Pathology Test See comment [facility] Comment on above: See report. Scanned copy available in EMR. No Panel Informationon 06-03 Helicobacter pylori Urease Test Negative [facility] Pathology Request for Lab Co rpon 06-03-2024 Pathology Request for Lab Raymond Normal [facility] Comment on above: Order Comment: PATHO LOGY GI SPECIMEN Result Comment: See report. Scanned copy available in EMR. PERFORMED BY: [place] [address] PATHOLOGIST MANAGER [employer] JON PONCE M.D. 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] Problem List As Of Date: 05/14/2024 (None) Encounter Status:Closed by VIVIAN MORLEY on 05/21/24 Normal [facility] Basophils Auto (Bld) [#/Vol] on 02-27-2024 Basophils (Bld) [#/Vol] 0.1 10 3/uL 0.0-0.1 [facility] Basophils/100 WBC Auto (Bld) on 02-27-2024 Basophils/100 WBC (Bld) 0.5 % 0.2-2.0 [facility] Eosinophils/100 WBC Auto (Bl d)on 02-27-2024 Eosinophils/100 WBC (Bld) 2.5 % 0.9-7.0 [facility] Erythrocyte distribution wid th Auto (RBC) [Ratio]on 02-27-2024 Erythrocyte distribution width (RBC) [Ratio] 13.5 % 11.0-15.0 [facility] Estimated glomerular filtrat ion rate (GFR) non- Americanon 02-27-2024 GFR/1.73 sq M.predicted among non-blacks MDRD (S/P/Bld) [Vol rate/Area] mL/min/{1.73_m2} >=60 [facility] Hematocrit Auto (Bld) [Volum e fraction]on 02-27-2024 Hematocrit (Bld) [Volume fraction] 47.1 % 42.0-54.0 [facility] Hemoglobin [Mass/volume] in Bloodon 02-27-2024 Hemoglobin (Bld) [Mass/Vol] 15.5 g/dL 14.0-18.0 [facility] Laboratory - Chemistry and C hemistry - challengeon 02-27-2024 Calcium [Mass/Vol] 8.9 mg/dL 8.5-10.1 [facility] Chloride [Moles/Vol] 98 mmol/L 98-107 [facility] CO2 [Moles/Vol] 28.1 mmol/L 21.0-32.0 [facility] Creatinine [Mass/Vol] 0.86 mg/dL 0.70-1.30 [facility] GFR/1.73 sq M.predicted MDRD (S/P/Bld) [Vol rate/Area] mL/min/{1.73_m2} >=60 [facility] Glucose [Mass/Vol] 237 mg/dL High 74-106 [facility] Lactate [Moles/Vol] 1.3 mmol/L 0.4-2.0 [facility] Potassium [Moles/Vol] 4.4 mmol/L 3.5-5.1 [facility] Sodium [Moles/Vol] 130 mmol/L Low 136-145 [facility] Urea nitrogen [Mass/Vol] 21.0 mg/dL High 7.0-18.0 [facility] Urea nitrogen/Creatinine [Mass ratio] 24.4 mg/mg [facility] Laboratory - Hematology and Cell countson 02-27-2024 Immature granulocytes/100 WBC (Bld) 0.3 % 0.0-0.5 [facility] Leukocytes [#/volume] correc jean claude for nucleated erythrocytes in Blood by Automated counon 02-27-2024 WBC corrected for nucl RBC Auto (Bld) [#/Vol] 9.3 10 3/uL 4.0-11.0 [facility] Lymphocytes Auto (Bld) [#/Vo l]on 02-27-2024 Lymphocytes (Bld) [#/Vol] 2.4 10 3/uL 1.2-3.8 [facility] Lymphocytes/100 WBC Auto (Bl d)on 02-27-2024 Lymphocytes/100 WBC (Bld) 25.5 % 20.5-60.0 [facility] MCH Auto (RBC) [Entitic mass ]on 02-27-2024 MCH (RBC) [Entitic mass] 29.1 pg 25.9-34.0 [facility] MCHC Auto (RBC) [Mass/Vol]on 02-27-2024 MCHC (RBC) [Mass/Vol] 32.9 g/dL 29.9-35.2 [facility] MCV Auto (RBC) [Entitic vol] on 02-27-2024 MCV (RBC) [Entitic vol] 88.5 fL 80.0-94.0 [facility] Monocytes Auto (Bld) [#/Vol] on 02-27-2024 Monocytes (Bld) [#/Vol] 1.1 10 3/uL High 0.3-0.8 [facility] Monocytes/100 WBC Auto (Bld) on 02-27-2024 Monocytes/100 WBC (Bld) 12.0 % 1.7-12.0 [facility] Neutrophils Auto (Bld) [#/Vo l]on 02-27-2024 Neutrophils (Bld) [#/Vol] 5.5 10 3/uL 1.4-6.5 [facility] Neutrophils/100 WBC Auto (Bl d)on 02-27-2024 Neutrophils/100 WBC (Bld) 59.2 % 43.0-75.0 [facility] No Panel Informationon 02-26 Eosinophils # (Auto) 0.2 10 3/uL 0.0-0.7 [facility] Immature Granulocyte # (Auto) 0.03 10 3/uL 0.00-0.03 [facility] Platelet mean volume Auto (B ld) [Entitic vol]on 02-27-2024 Platelet mean volume (Bld) [Entitic vol] 8.8 fL Low 9.5-13.5 [facility] Platelets Auto (Bld) [#/Vol] on 02-27-2024 Platelets (Bld) [#/Vol] 288 10 3/uL 150-450 [facility] RBC Auto (Bld) [#/Vol]on RBC (Bld) [#/Vol] 5.32 10 6/uL 4.70-6.10 [facility] Serum or plasma anion gap de terminationon 02-27-2024 Anion gap [Moles/Vol] 8.3 mmol/L [facility] Basophils Auto (Bld) [#/Vol] on 12-05-2023 Basophils (Bld) [#/Vol] 0.1 10 3/uL 0.0-0.1 [facility] Basophils/100 WBC Auto (Bld) on 12-05-2023 Basophils/100 WBC (Bld) 0.9 % 0.2-2.0 [facility] Eosinophils/100 WBC Auto (Bl d)on 12-05-2023 Eosinophils/100 WBC (Bld) 2.7 % 0.9-7.0 [facility] Erythrocyte distribution wid th Auto (RBC) [Ratio]on 12-05-2023 Erythrocyte distribution width (RBC) [Ratio] 13.1 % 11.0-15.0 [facility] Estimated glomerular filtrat ion rate (GFR) non- Americanon 12-05-2023 GFR/1.73 sq M.predicted among non-blacks MDRD (S/P/Bld) [Vol rate/Area] mL/min/{1.73_m2} >=60 [facility] Glucose mean value [Mass/vol ume] in Blood Estimated from glycated hemoglobinon 12-05-2023 Average glucose Estimated from glycated hemoglobin (Bld) [Mass/Vol] 171 mg/dL [facility] Hematocrit Auto (Bld) [Volum e fraction]on 12-05-2023 Hematocrit (Bld) [Volume fraction] 48.9 % 42.0-54.0 [facility] Hemoglobin [Mass/volume] in Bloodon 12-05-2023 Hemoglobin (Bld) [Mass/Vol] 16.0 g/dL 14.0-18.0 [facility] Laboratory - Chemistry and C hemistry - challengeon 12-05-2023 Calcium [Mass/Vol] 9.7 mg/dL 8.5-10.1 [facility] Chloride [Moles/Vol] 102 mmol/L 98-107 [facility] CO2 [Moles/Vol] 27.6 mmol/L 21.0-32.0 [facility] Creatinine [Mass/Vol] 1.01 mg/dL 0.70-1.30 [facility] GFR/1.73 sq M.predicted MDRD (S/P/Bld) [Vol rate/Area] mL/min/{1.73_m2} >=60 [facility] Glucose [Mass/Vol] 156 mg/dL High 74-106 [facility] Potassium [Moles/Vol] 4.4 mmol/L 3.5-5.1 [facility] Sodium [Moles/Vol] 139 mmol/L 136-145 [facility] Urea nitrogen [Mass/Vol] 13.0 mg/dL 7.0-18.0 [facility] Urea nitrogen/Creatinine [Mass ratio] 12.9 mg/mg [facility] Laboratory - Hematology and Cell countson 12-05-2023 ESR (Bld) [Velocity] 17 mm/h <=20 [facility] HbA1c (Bld) [Mass fraction] 7.6 % High 4.5-6.2 [facility] Comment on above: ADA RECOMMENDED LIMI T 4.0 - 6.0ADA THERAPEUTIC TARGET < 7.0ACTION SUGGESTED> 7.0 Immature granulocytes/100 WBC (Bld) 0.4 % 0.0-0.5 [facility] Leukocytes [#/volume] correc jean claude for nucleated erythrocytes in Blood by Automated counon 12-05-2023 WBC corrected for nucl RBC Auto (Bld) [#/Vol] 7.7 10 3/uL 4.0-11.0 [facility] Lymphocytes Auto (Bld) [#/Vo l]on 12-05-2023 Lymphocytes (Bld) [#/Vol] 2.4 10 3/uL 1.2-3.8 [facility] Lymphocytes/100 WBC Auto (Bl d)on 12-05-2023 Lymphocytes/100 WBC (Bld) 31.2 % 20.5-60.0 [facility] MCH Auto (RBC) [Entitic mass ]on 12-05-2023 MCH (RBC) [Entitic mass] 28.5 pg 25.9-34.0 [facility] MCHC Auto (RBC) [Mass/Vol]on 12-05-2023 MCHC (RBC) [Mass/Vol] 32.7 g/dL 29.9-35.2 [facility] MCV Auto (RBC) [Entitic vol] on 12-05-2023 MCV (RBC) [Entitic vol] 87.0 fL 80.0-94.0 [facility] Monocytes Auto (Bld) [#/Vol] on 12-05-2023 Monocytes (Bld) [#/Vol] 0.7 10 3/uL 0.3-0.8 [facility] Monocytes/100 WBC Auto (Bld) on 12-05-2023 Monocytes/100 WBC (Bld) 9.5 % 1.7-12.0 [facility] Neutrophils Auto (Bld) [#/Vo l]on 12-05-2023 Neutrophils (Bld) [#/Vol] 4.2 10 3/uL 1.4-6.5 [facility] Neutrophils/100 WBC Auto (Bl d)on 12-05-2023 Neutrophils/100 WBC (Bld) 55.3 % 43.0-75.0 [facility] No Panel Informationon 12-04 Eosinophils # (Auto) 0.2 10 3/uL 0.0-0.7 [facility] Immature Granulocyte # (Auto) 0.03 10 3/uL 0.00-0.03 [facility] Platelet mean volume Auto (B ld) [Entitic vol]on 12-05-2023 Platelet mean volume (Bld) [Entitic vol] 8.6 fL Low 9.5-13.5 [facility] Platelets Auto (Bld) [#/Vol] on 12-05-2023 Platelets (Bld) [#/Vol] 330 10 3/uL 150-450 [facility] RBC Auto (Bld) [#/Vol]on RBC (Bld) [#/Vol] 5.62 10 6/uL 4.70-6.10 [facility] Serum or plasma anion gap de terminationon 12-05-2023 Anion gap [Moles/Vol] 13.8 mmol/L [facility] Magnesiumon 07-02-2023 Magnesium [Mass/Vol] 2.9380295 mg/dL Normal 1.8- 2.4 mg/dL [facility] Other Magnesium see note [facility] Other XR CHEST 2 Von 11-24-2022 XR [facility] LUNG CANCER SCREENINGon 09-20-2021 CT [...] by: YEISON NAVAS Date: 2022-07-20 07:18 Normal [facility] CBC AUTO DIFFon 06-07-2022 BASO # 0.1 103/ul Normal 0.0-0.1 [facility] Comment on above: Performed By: #### C BC #### [facility] [address] [place] [address] Dr. Eran Chacon Basophils/100 WBC (Bld) 0.6 % Normal 0.2-2.0 [facility] Comment on above: Performed By: #### C BC #### [facility] [address] [place] [address] Dr. Eran Chacon EO # 0.3 103/ul Normal 0.0-0.7 [facility] Comment on above: Performed By: #### C BC #### [facility] [address] [place] [address] Dr. Eran Chacon Eosinophils/100 WBC (Bld) 3.3 % Normal 0.9-7.0 [facility] Comment on above: Performed By: #### C BC #### [facility] [address] [place] [address] Dr. Eran Chacon Erythrocyte distribution width (RBC) [Ratio] 12.9 % Normal 11.0-15.0 [facility] Comment on above: Performed By: #### C BC #### [facility] [address] [place] [address] Dr. Eran Chacon Hematocrit (Bld) [Volume fraction] 47.7 % Normal 42.0-54.0 [facility] Comment on above: Performed By: #### C BC #### [facility] [address] [place] [address] Dr. Eran Chacon Hemoglobin (Bld) [Mass/Vol] 15.9 g/dL Normal 14.0-18.0 [facility] Comment on above: Performed By: #### C BC #### [facility] [address] [place] [address] Dr. Eran Chacon IG # 0.02 10e3/ul Normal 0.00-0.03 [facility] Comment on above: Performed By: #### C BC #### [facility] [address] [place] [address] Dr. Eran Chacon IG % 0.2 % Normal 0.0-0.5 [facility] Comment on above: Performed By: #### C BC #### [facility] [address] [address] [address] Eran Chacon LYMPH # 3.4 103/ul Normal 1.2-3.8 [facility] Comment on above: Performed By: #### C BC #### [facility] [address] [address] [address] Eran Chacon Lymphocytes/100 WBC (Bld) 34.5 % Normal 20.5-60.0 [facility] Comment on above: Performed By: #### C BC #### [facility] [address] [address] [address] Eran Chacon MANUAL DIFF REQ NO Normal [facility] Comment on above: Performed By: #### C BC #### [facility] [address] [place] [address] Dr. Eran Chacon MCH (RBC) [Entitic mass] 29.6 pg Normal 25.9-34.0 [facility] Comment on above: Performed By: #### C BC #### [facility] [address] [place] [address] Dr. Eran Chacon MCHC (RBC) [Mass/Vol] 33.3 g/dL Normal 29.9-35.2 [facility] Comment on above: Performed By: #### C BC #### [facility] [address] [place] [address] Dr. Eran Chacon MCV (RBC) [Entitic vol] 88.8 fL Normal 80.0-94.0 [facility] Comment on above: Performed By: #### C BC #### [facility] [address] [place] [address] Dr. Eran Chacon MONO # 0.9 103/ul Critically high 0.3-0.8 [facility] Comment on above: Performed By: #### C BC #### [facility] [address] [place] [address] Dr. Eran Chacon Monocytes/100 WBC (Bld) 9.3 % Normal 1.7-12.0 [facility] Comment on above: Performed By: #### C BC #### [facility] [address] [place] [address] Dr. Eran Chacon NEUT # 5.2 103/ul Normal 1.4-6.5 [facility] Comment on above: Performed By: #### C BC #### [facility] [address] [place] [address] Dr. Eran Chacon Neutrophils/100 WBC (Bld) 52.1 % Normal 43.0-75.0 [facility] Comment on above: Performed By: #### C BC #### [facility] [address] [place] [address] Dr. Eran Chacon Platelet mean volume (Bld) [Entitic vol] 8.8 fL Critically low 9.5-13.5 [facility] Comment on above: Performed By: #### C BC #### [facility] [address] [place] [address] Dr. Eran Chacon PLT 287 103/ul Normal 150-450 [facility] Comment on above: Performed By: #### C BC #### [facility] [address] [place] [address] Dr. Eran Chacon RBC 5.37 106/ul Normal 4.70-6.10 [facility] Comment on above: Performed By: #### C BC #### [facility] [address] [place] [address] Dr. Eran Chacon WBC 9.9 103/ul Normal 4.0-11.0 [facility] Comment on above: Performed By: #### C BC #### [facility] [address] [place] [address] Dr. Eran Chacon ER URINE PROFILEon 2 Bilirubin Ql (U) Negative Normal NEGATIVE [facility] Comment on above: Performed By: #### BISHNU BATESRO #### [facility] [address] [place] [address] Dr. Eran Chacon Clarity (U) CLEAR Normal CLEAR [facility] Comment on above: Performed By: #### BISHNU BATESRO #### [facility] [address] [place] [address] Dr. Eran Chacon Color (U) YELLOW Normal YELLOW [facility] Comment on above: Performed By: #### Med SHER UMICRO #### [facility] [address] [place] [address] Dr. Eran GATES A micrscopic examination will be performed if indicated. Normal [facility] Comment on above: Performed By: #### Med SHER, UMICRO #### [facility] [address] [place] [address] Dr. Eran Chacon Glucose Ql (U) 500 mg/dl Abnormal NEGATIVE [facility] Comment on above: Performed By: #### Med SHER UMICRO #### [facility] [address] [place] [address] Dr. Eran Chacon Hemoglobin Ql (U) TRACE-INTACT Abnormal NEGATIVE [facility] Comment on above: Performed By: #### Med SHER UMICRO #### [facility] [address] [place] [address] Dr. Eran Chacon Ketones Ql (U) Negative Normal NEGATIVE [facility] Comment on above: Performed By: #### Med SHER UMICRO #### [facility] [address] [place] [address] Dr. Eran Chacon LEUKOCYTES Negative Normal NEGATIVE [facility] Comment on above: Performed By: #### Med SHER UMICRO #### [facility] [address] [place] [address] Dr. Eran Chacon Nitrite Ql (U) Negative Normal NEGATIVE [facility] Comment on above: Performed By: #### Med SHER, UMICRO #### [facility] [address] [place] [address] Dr. Eran Chacon pH (U) 6.0 [pH] Normal 5-9 [facility] Comment on above: Performed By: #### Med SHER, UMICRO #### [facility] [address] [place] [address] Dr. Eran Chacon SPEC GRAVITY 1.025 Normal 1.005-<=1.02 5 [facility] Comment on above: Performed By: #### BISHNU BATESRO #### [facility] [address] [place] [address] Dr. Eran Chacon UA PROTEIN Negative Normal NEGATIVE/ TRACE [facility] Comment on above: Performed By: #### BISHNU BATESRO #### [facility] [address] [place] [address] Dr. Eran Chacon UR MICRO IND INDICATED Normal [facility] Comment on above: Performed By: #### BISHNU BATESRO #### [facility] [address] [place] [address] Dr. Eran Chacon Urobilinogen Qn (U) 0.2 {Aureliano'U}/dL Normal 0.2 - 1. 0 [facility] Comment on above: Performed By: #### HANNA BATES #### [facility] [address] [place] [address] Dr. Eran Chacon PROF 14(COMP METB)on 022 Albumin [Mass/Vol] 4.0 g/dL Normal 3.4-5.0 [facility] Comment on above: Performed By: #### C MP #### [facility] [address] [place] [address] Dr. Eran Chacon Albumin/Globulin [Mass ratio] 1.2 {ratio} Normal [facility] Comment on above: Performed By: #### C MP #### [facility] [address] [place] [address] Dr. Eran Chacon ALP [Catalytic activity/Vol] 104 U/L Normal 46-116 [facility] Comment on above: Performed By: #### C MP #### [facility] [address] [place] [address] Dr. Eran Chacon ALT [Catalytic activity/Vol] 28 U/L Normal 16-63 [facility] Comment on above: Performed By: #### C MP #### [facility] [address] [place] [address] Dr. Eran Chacon Anion gap [Moles/Vol] 7.2 mmol/L Normal [facility] Comment on above: Performed By: #### C MP #### [facility] [address] [address] [address] Eran Chacon AST [Catalytic activity/Vol] 14 U/L Critically low 15-37 [facility] Comment on above: Performed By: #### C MP #### [facility] [address] [address] [address] Eran Chacon Bilirubin [Mass/Vol] 0.4 mg/dL Normal 0.2-1.0 [facility] Comment on above: Performed By: #### C MP #### [facility] [address] [address] [address] Eran Chacon Calcium [Mass/Vol] 9.0 mg/dL Normal 8.5-10.1 [facility] Comment on above: Performed By: #### C MP #### [facility] [address] [place] [address] Dr. Eran Chacon Chloride [Moles/Vol] 103 mmol/L Normal 98-107 [facility] Comment on above: Performed By: #### C MP #### [facility] [address] [address] [address] Eran Chacon CO2 [Moles/Vol] 30.0 mmol/L Normal 21.0-32.0 [facility] Comment on above: Performed By: #### C MP #### [facility] [address] [place] [address] Dr. Eran Chacon Creatinine [Mass/Vol] 0.85 mg/dL Normal 0.70-1.30 [facility] Comment on above: Performed By: #### C MP #### [facility] [address] [place] [address] Dr. Eran Chacon EGFR-AF PAKISTANI >60 Normal >=60 [facility] Comment on above: Performed By: #### C MP #### [facility] [address] [place] [address] Dr. Eran Chacon EGFR-NON AF PAKISTANI >60 Normal >=60 [facility] Comment on above: Performed By: #### C MP #### [facility] [address] [place] [address] Dr. Eran Chacon Globulin (S) [Mass/Vol] 3.3 g/dL Normal [facility] Comment on above: Performed By: #### C MP #### [facility] [address] [place] [address] Dr. Eran Chacon Glucose [Mass/Vol] 165 mg/dL Critically high 74-106 [facility] Comment on above: Performed By: #### C MP #### [facility] [address] [address] [address] Eran Chacon Potassium [Moles/Vol] 4.2 mmol/L Normal 3.5-5.1 [facility] Comment on above: Performed By: #### C MP #### [facility] [address] [place] [address] Dr. Eran Chacon Protein [Mass/Vol] 7.3 g/dL Normal 6.4-8.2 [facility] Comment on above: Performed By: #### C MP #### [facility] [address] [place] [address] Dr. Eran Chacon Sodium [Moles/Vol] 136 mmol/L Normal 136-145 [facility] Comment on above: Performed By: #### C MP #### [facility] [address] [place] [address] Dr. Eran Chacon Urea nitrogen [Mass/Vol] 10.0 mg/dL Normal 7.0-18.0 [facility] Comment on above: Performed By: #### C MP #### [facility] [address] [place] [address] Dr. Eran Chacon Urea nitrogen/Creatinine [Mass ratio] 11.8 mg/mg Normal [facility] Comment on above: Performed By: #### C MP #### [facility] [address] [place] [address] Dr. Eran Chacon URINE MICROSCOPIC ONLYon BACTERIA NONE SEEN Normal NONE SEEN [facility] Comment on above: Performed By: #### E HANNA SHER #### [facility] [address] [place] [address] Dr. Eran Chacon Bacteria identified Cx Nom (U) NOT INDICATED Normal [facility] Comment on above: Performed By: #### E RUR, UMICRO #### [facility] [address] [place] [address] Dr. Eran Chacon CAST NONE SEEN Normal NONE SEEN [facility] Comment on above: Performed By: #### E RUR, UMICRO #### [facility] [address] [place] [address] Dr. Eran Chacon Crystals LM Nom (Urine sed) NONE SEEN Normal NONE SEEN [facility] Comment on above: Performed By: #### E RUR, UMICRO #### [facility] [address] [place] [address] Dr. Eran Chacon Epithelial cells LM Ql (Urine sed) RARE Normal NONE SEEN /RARE [facility] Comment on above: Performed By: #### E IGNACIOR, UMICRO #### [facility] [address] [place] [address] Dr. Eran Chacon MUCOUS NONE SEEN Normal NONE SEEN [facility] Comment on above: Performed By: #### E NIKKY, UMICRO #### [facility] [address] [place] [address] Dr. Eran Chacon RBC 0-2 Normal 0-2 [facility] Comment on above: Performed By: #### E NIKKY, UMICRO #### [facility] [address] [place] [address] Dr. Eran Chacon WBC 2-5 Abnormal NONE SEEN [facility] Comment on above: Performed By: #### Med SHER, UMICRO #### [facility] [address] [place] [address] Dr. Eran Chacon MRI SHOULDER LT WO [...] by: YEISON NAVAS Date: 2022-02-02 17:09 Normal [facility] Vital Signs Date Time Vital Sign Value Performing Clinician Facility 02-16-2025 14:47-0400 Body height 175.26 cm Jeremy Magallanes MD Work Phone: [facility] 02-16-2025 14:47-0400 Body mass index (BMI) [Ratio] 34 kg/m2 Jeremy Magallanes MD Work Phone: [facility] 02-16-2025 14:47-0400 Body weight 104.32 kg Jeremy Magallanes MD Work Phone: [facility] 02-16-2025 14:47-0400 Diastolic blood pressure 74 mm[Hg] Jeremy Magallanes MD Work Phone: [facility] 02-16-2025 14:47-0400 Heart rate 81 /min Jeremy Magallanes MD Work Phone: [facility] 02-16-2025 14:47-0400 Respiratory rate 12 /min Jeremy Magallanes MD Work Phone: [facility] 02-16-2025 14:47-0400 SaO2% (BldA) [Mass fraction] 97 % Jeremy Magallanes MD Work Phone: [facility] 02-16-2025 14:47-0400 Systolic blood pressure 120 mm[Hg] Jeremy Magallanes MD Work Phone: [facility] 01-21-2025 09:27-0400 Body height 175.26 cm [facility] 01-21-2025 09:27-0400 Body mass index (BMI) [Ratio] 34.1 kg/m2 [facility] 01-21-2025 09:27-0400 Body temperature 98.5 [degF] [facility] 01-21-2025 09:27-0400 Body weight 104.77 kg [facility] 01-21-2025 09:27-0400 Diastolic blood pressure 82 mm[Hg] [facility] 01-21-2025 09:27-0400 Heart rate 72 /min [facility] 01-21-2025 09:27-0400 SaO2% (BldA) [Mass fraction] 97 % [facility] 01-21-2025 09:27-0400 Systolic blood pressure 144 mm[Hg] [facility] 12-22-2024 08:21-0400 Body height 175.26 cm [facility] 12-22-2024 08:21-0400 Body mass index (BMI) [Ratio] 33.6 kg/m2 [facility] 12-22-2024 08:21-0400 Body temperature 98.6 [degF] [facility] 12-22-2024 08:21-0400 Body weight 103.41 kg [facility] 12-22-2024 08:21-0400 Diastolic blood pressure 81 mm[Hg] [facility] 12-22-2024 08:21-0400 Heart rate 71 /min [facility] 12-22-2024 08:21-0400 SaO2% (BldA) [Mass fraction] 94 % [facility] 12-22-2024 08:21-0400 Systolic blood pressure 143 mm[Hg] [facility] 10-15-2024 08:56-0500 Body height 175.26 cm [facility] 10-15-2024 08:56-0500 Body mass index (BMI) [Ratio] 34.5 kg/m2 [facility] 10-15-2024 08:56-0500 Body temperature 98 [degF] [facility] 10-15-2024 08:56-0500 Body weight 106.14 kg [facility] 10-15-2024 08:56-0500 Diastolic blood pressure 81 mm[Hg] [facility] 10-15-2024 08:56-0500 Heart rate 76 /min [facility] [facility]2024 08:56-0500 Systolic blood pressure 136 mm[Hg] [facility] 07-23-2024 10:21-0500 Body height 175.26 cm [facility] 07-23-2024 10:21-0500 Body mass index (BMI) [Ratio] 34.2 kg/m2 [facility] 07-23-2024 10:21-0500 Body weight 105.23 kg [facility] 07-23-2024 10:21-0500 Diastolic blood pressure 75 mm[Hg] [facility] 07-23-2024 10:21-0500 Heart rate 73 /min [facility] 07-23-2024 10:21-0500 SaO2% (BldA) [Mass fraction] 97 % [facility] 07-23-2024 10:21-0500 Systolic blood pressure 133 mm[Hg] [facility] 06-17-2024 09:13-0400 Body height 175.26 cm MD Jeremy Magallanes Work Phone: [facility] 06-17-2024 09:13-0400 Body mass index (BMI) [Ratio] 33.5 kg/m2 MD Jeremy Magallanes Work Phone: [facility] 06-17-2024 09:13-0400 Body temperature 98.1 [degF] MD Jeremy Magallanes Work Phone: [facility] 06-17-2024 09:13-0400 Body weight 102.96 kg MD Jeremy Magallanes Work Phone: [facility] 06-17-2024 09:13-0400 Diastolic blood pressure 83 mm[Hg] MD Jeremy Magallanes Work Phone: [facility] 06-17-2024 09:13-0400 Heart rate 79 /min MD Jeremy Magallanes Work Phone: [facility] 06-17-2024 09:13-0400 Systolic blood pressure 149 mm[Hg] MD Jeremy Magallanes Work Phone: [facility] 05-27-2024 14:56-0400 Body height 175.3 cm [employer] SEMICONDUCTOR DEVELOPMENT TECHNICIAN-LINOTYPE MACHINIST Work Phone: [facility] 05-27-2024 14:56-0400 Body mass index (BMI) [Ratio] 33.97 kg/m2 [employer] SEMICONDUCTOR DEVELOPMENT TECHNICIAN-LINOTYPE MACHINIST Work Phone: [facility] 05-27-2024 14:56-0400 Body weight 104.33 kg [employer] SEMICONDUCTOR DEVELOPMENT TECHNICIAN-LINOTYPE MACHINIST Work Phone: [facility] [employer] [facility] 04-07-2024 10:04-0400 Body height 180.3 cm Malathi Sanchez MD Work Phone: [facility] 04-07-2024 10:04-0400 Body mass index (BMI) [Ratio] 32.78 kg/m2 Malathi Sanchez MD Work Phone: [facility] 04-07-2024 10:04-0400 Body weight 106.59 kg Malathi Sanchez MD Work Phone: [facility] 04-07-2024 10:04-0400 Diastolic blood pressure 88 mm[Hg] Malathi Sanchez MD Work Phone: [facility] 04-07-2024 10:04-0400 Systolic blood pressure 184 mm[Hg] Malathi Sanchez MD Work Phone: [facility] 03-18-2024 08:46-0400 Body height 175.26 cm [facility] 03-18-2024 08:46-0400 Body mass index (BMI) [Ratio] 34.4 kg/m2 [facility] 03-18-2024 08:46-0400 Body weight 105.68 kg [facility] 03-18-2024 08:46-0400 Diastolic blood pressure 80 mm[Hg] [facility] 03-18-2024 08:46-0400 Heart rate 72 /min [facility] 03-18-2024 08:46-0400 Systolic blood pressure 130 mm[Hg] [facility] 03-03-2024 11:54-0400 Body height 175.26 cm [facility] 03-03-2024 11:54-0400 Body mass index (BMI) [Ratio] 34.7 kg/m2 [facility] 03-03-2024 11:54-0400 Body weight 106.59 kg [facility] 03-03-2024 11:54-0400 Diastolic blood pressure 81 mm[Hg] [facility] 03-03-2024 11:54-0400 Heart rate 69 /min [facility] 03-03-2024 11:54-0400 Systolic blood pressure 129 mm[Hg] [facility] 12-17-2023 08:54-0400 Body height 175.26 cm [facility] 12-17-2023 08:54-0400 Body mass index (BMI) [Ratio] 35.2 kg/m2 [facility] 12-17-2023 08:54-0400 Body weight 108.4 kg [facility] 12-17-2023 08:54-0400 Diastolic blood pressure 76 mm[Hg] [facility] 12-17-2023 08:54-0400 Heart rate 76 /min [facility] 12-17-2023 08:54-0400 Systolic blood pressure 154 mm[Hg] [facility] 12-05-2023 08:52-0400 Body height 175.26 cm [facility] 12-05-2023 08:52-0400 Body mass index (BMI) [Ratio] 35 kg/m2 [facility] 12-05-2023 08:52-0400 Body weight 107.67 kg [facility] 12-05-2023 08:52-0400 Diastolic blood pressure 78 mm[Hg] [facility] 12-05-2023 08:52-0400 Heart rate 69 /min [facility] 12-05-2023 08:52-0400 Systolic blood pressure 147 mm[Hg] [facility] 09-13-2023 13:30-0500 Body height 175.26 cm Jeremy Magallanes Other [facility] 09-13-2023 13:30-0500 Body mass index (BMI) [Ratio] 33.22 kg/m2 Jeremy Magallanes Other [facility] Other 09-13-2023 13:30-0500 Body temperature 98.4 [degF] Jeremy Magallanes Other [facility] Other 09-13-2023 13:30-0500 Body weight 102.06 kg Jeremy Magallanes Other [facility] Other 09-13-2023 13:30-0500 Body weight 102.05 kg [facility] 09-13-2023 13:30-0500 Diastolic blood pressure 80 mm[Hg] Jeremy Magallanes Other [facility] 09-13-2023 13:30-0500 SaO2% (BldA) [Mass fraction] 93 % Jeremy Magallanes Other [facility] Other 09-13-2023 13:30-0500 Systolic blood pressure 118 mm[Hg] Jeremy Magallanes Other [facility] 08-13-2023 10:30-0500 Body height 175.26 cm Jeremy Magallanes Other [facility] Other 08-13-2023 10:30-0500 Body mass index (BMI) [Ratio] 33.9 kg/m2 Jermey Magallanes Other [facility] Other 08-13-2023 10:30-0500 Body weight 104.15 kg Jeremy Magallanes Other [facility] Other 08-13-2023 10:30-0500 Diastolic blood pressure 78 mm[Hg] Jeremy Magallanes Other [facility] Other 08-13-2023 10:30-0500 Systolic blood pressure 124 mm[Hg] Jeremy Magallanes Other [facility] Other 06-25-2023 08:45-0500 Body height 175.26 cm Jeremy Magallanes Other [facility] Other 06-25-2023 08:45-0500 Body mass index (BMI) [Ratio] 33.37 kg/m2 Jeremy Magallanes Other [facility] Other 06-25-2023 08:45-0500 Body temperature 96.5 [degF] Jeremy Magallanes Other [facility] Other 06-25-2023 08:45-0500 Body weight 102.51 kg Jeremy Magallanes Other [facility] Other 06-25-2023 08:45-0500 Diastolic blood pressure 85 mm[Hg] Jeremy Magallanes Other [facility] Other 06-25-2023 08:45-0500 Systolic blood pressure 149 mm[Hg] Jeremy Magallanes Other [facility] Other 05-28-2023 10:45-0400 Body height 175.26 cm Jeremy Magallanes Other [facility] Other 05-28-2023 10:45-0400 Body mass index (BMI) [Ratio] 33.52 kg/m2 Jeremy Magallanes Other [facility] Other 05-28-2023 10:45-0400 Body weight 102.97 kg Jeremy Magallanes Other [facility] Other 05-28-2023 10:45-0400 Diastolic blood pressure 82 mm[Hg] Jeremy Magallanes Other [facility] Other 05-28-2023 10:45-0400 Systolic blood pressure 147 mm[Hg] Jeremy Magallanes Other [facility] Other 2023 08:45-0400 Body height 175.26 cm Jeremy Magallanes Other [facility] Other 2023 08:45-0400 Body mass index (BMI) [Ratio] 33.52 kg/m2 Jeremy Magallanes Other [facility] Other 2023 08:45-0400 Body weight 102.97 kg Jeremy Magallanes Other [facility] Other 2023 08:45-0400 Diastolic blood pressure 85 mm[Hg] Jeremy Magallanes Other [facility] Other 2023 08:45-0400 Systolic blood pressure 156 mm[Hg] Jeremy Magallanes Other [facility] Other 04-30-2023 09:45-0400 Body height 175.26 cm Jeremy Magallanes Other [facility] Other 04-30-2023 09:45-0400 Body mass index (BMI) [Ratio] 34.32 kg/m2 Jeremy Magallanes Other [facility] Other 04-30-2023 09:45-0400 Body temperature 96.2 [degF] Jeremy Magallanes Other [facility] Other 04-30-2023 09:45-0400 Body weight 105.42 kg Jeremy Magallanes Other [facility] Other 04-30-2023 09:45-0400 Diastolic blood pressure 78 mm[Hg] Jeremy Magallanes Other [facility] Other 04-30-2023 09:45-0400 Respiratory rate 16 /min Jeremy Magallanes Other [facility] Other 04-30-2023 09:45-0400 Systolic blood pressure 146 mm[Hg] Jeremy Magallanes Other [facility] Other 02-20-2023 09:15-0400 Body height 175.26 cm Jeremy Magallanes Other [facility] Other 02-20-2023 09:15-0400 Body mass index (BMI) [Ratio] 33.46 kg/m2 Jeremy Magallanes Other [facility] Other 02-20-2023 09:15-0400 Body weight 102.79 kg Jeremy Magallanes Other [facility] Other 02-20-2023 09:15-0400 Diastolic blood pressure 77 mm[Hg] Jeremy Magallanes Other [facility] Other 02-20-2023 09:15-0400 Systolic blood pressure 131 mm[Hg] Jeremy Magallanes Other [facility] Other 01-17-2023 08:45-0400 Body height 175.26 cm Jeremy Magallanes Other [facility] Other 01-17-2023 08:45-0400 Body mass index (BMI) [Ratio] 33.37 kg/m2 Jeremy Magallanes Other [facility] Other 01-17-2023 08:45-0400 Body weight 102.51 kg Jeremy Magallanes Other [facility] Other 01-17-2023 08:45-0400 Diastolic blood pressure 79 mm[Hg] Jeremy Magallanes Other [facility] Other 01-17-2023 08:45-0400 Systolic blood pressure 128 mm[Hg] Jeremy Magallanes Other [facility] Other 11-23-2022 09:30-0400 Body height 175.26 cm Jeremy Magallanes Other [facility] Other 11-23-2022 09:30-0400 Body mass index (BMI) [Ratio] 33.96 kg/m2 Jeremy Magallanes Other [facility] Other 11-23-2022 09:30-0400 Body weight 104.33 kg Jeremy Magallanes Other [facility] Other 11-23-2022 09:30-0400 Diastolic blood pressure 72 mm[Hg] Jeremy Magallanes Other [facility] Other 11-23-2022 09:30-0400 Systolic blood pressure 122 mm[Hg] Jeremy Magallanes Other [facility] Other 09-04-2022 11:30-0500 Body height 175.26 cm Jeremy Magallanes Other [facility] Other 09-04-2022 11:30-0500 Body mass index (BMI) [Ratio] 33.52 kg/m2 Jeremy Magallanes Other [facility] Other 09-04-2022 11:30-0500 Body weight 102.97 kg Jeremy Magallanes Other [facility] Other 09-04-2022 11:30-0500 Diastolic blood pressure 80 mm[Hg] Jeremy Magallanes Other [facility] Other 09-04-2022 11:30-0500 SaO2% (BldA) [Mass fraction] 95 % Jeremy Magallanes Other [facility] Other 09-04-2022 11:30-0500 Systolic blood pressure 122 mm[Hg] Jeremy Magallanes Other [facility] Other 02-06-2022 12:45-0400 Body height 175.26 cm Kesha Olemartin Other [facility] Other 02-06-2022 12:45-0400 Body mass index (BMI) [Ratio] 31.01 kg/m2 Kesha Olexa Other [facility] Other 02-06-2022 12:45-0400 Body weight 95.26 kg Kesha Olexa Other [facility] Other 05-26-2021 13:15-0400 Body height 175.26 cm Harriet Mo Other [facility] Other 05-26-2021 13:15-0400 Body mass index (BMI) [Ratio] 31.01 kg/m2 Harriet Ginty Other [facility] Other 05-26-2021 13:15-0400 Body temperature 98.3 [degF] Harriet Ginty Other [facility] Other 05-26-2021 13:15-0400 Body weight 95.26 kg Harriet Ginty Other [facility] Other 05-26-2021 13:15-0400 SaO2% (BldA) [Mass fraction] 96 % Harriet Ginty Other [facility] Other Encounters Encounter Date Encounter Type Care Provider Facility Start: 04-26-2025 End: 04-26-2025 ambulatory Zacarias Pike MD Facility:[facility] Start: 04-05-2025 End: 04-05-2025 ambulatory Zacarias Pike MD Facility:[facility] Start: 02-16-2025 End: 02-16-2025 ambulatory Jeremy Magallanes MD Work Phone: [facility] Work Phone: Start: 02-16-2025 End: 02-16-2025 Patient encounter procedure Jeremy Magallanes MD -[facility] Work Phone: Start: 01-21-2025 End: 01-21-2025 ambulatory [facility] Work Phone: Start: 01-21-2025 End: 01-21-2025 Patient encounter procedure [facility] Work Phone: Start: 12-23-2024 Non-patient / Non-visit [facility] Work Phone: Start: 12-22-2024 End: 12-22-2024 ambulatory [facility] Work Phone: Start: 12-22-2024 End: 12-22-2024 Patient encounter procedure [facility] Work Phone: Start: 11-23-2024 End: 11-23-2024 ambulatory Zacarias Pike MD Facility:[facility] Start: 11-04-2024 End: 11-05-2024 ambulatory Ligia T CHIKIS Facility:[facility] Start: 11-04-2024 End: 11-05-2024 Patient encounter procedure Ligia Boggs CHIKIS [facility] Start: 11-04-2024 End: 11-05-2024 ambulatory Ligia Flakita CHIKIS Facility:[facility] Start: 10-15-2024 End: 10-15-2024 ambulatory [facility] Work Phone: Start: 10-15-2024 End: 10-15-2024 Patient encounter procedure [facility] Work Phone: Start: 10-12-2024 Non-patient / Non-visit [facility] Work Phone: Start: 10-11-2024 Non-patient / Non-visit [facility] Work Phone: Start: 08-26-2024 Non-patient / Non-visit [facility] Work Phone: Start: 08-17-2024 End: 08-17-2024 ambulatory Zacarias Pike MD Facility:[facility] Start: 07-23-2024 End: 07-23-2024 Patient encounter procedure [facility] Work Phone: Start: 07-21-2024 Non-patient / Non-visit [facility] Work Phone: Start: 07-20-2024 Non-patient / Non-visit [facility] Work Phone: Start: 06-17-2024 End: 06-17-2024 ambulatory MD Jeremy Magallanes Work Phone: [facility] Work Phone: Start: 06-17-2024 End: 06-17-2024 Patient encounter procedure MD Jeremy Magallanes Work Phone: [facility] Work Phone: Start: 06-12-2024 End: 06-12-2024 Orders Only Not In System Ref Prov [facility] Start: 06-10-2024 End: 06-10-2024 Orders Only Ros[facility] Shea [facility] Comment on above: Dysphagia, unspecifi ed type; Black stools Start: 06-03-2024 End: 06-03-2024 ambulatory MD Jeremy Magallanes Work Phone: [facility] Work Phone: Start: 06-03-2024 End: 06-03-2024 Departed Referred MD Jeremy Magallanes Work Phone: [facility] Start: 06-03-2024 Non-patient / Non-visit MD Angelina Magallanes Work Phone: [facility] Work Phone: Start: 05-27-2024 End: 05-27-2024 Office outpatient new 30 minutes Priyanka Vaz SEMICONDUCTOR DEVELOPMENT TECHNICIAN-LINOTYPE MACHINIST Work Phone: [facility] Comment on above: Dysphagia, unspecifi ed type (Primary Dx); Black stools; Gastroesophageal reflux disease, unspecified whether esophagitis present; Abnormal esophagram Start: 05-27-2024 End: 05-27-2024 ambulatory PRIYANKA VAZ [facility] Start: 05-18-2024 End: 05-18-2024 [...] Not Available Start: 03-18-2024 End: 03-18-2024 ambulatory [facility] Work Phone: Start: 03-18-2024 End: 03-18-2024 Patient encounter procedure [facility] Work Phone: Start: 03-03-2024 End: 03-03-2024 ambulatory [facility] Work Phone: Start: 03-03-2024 End: 03-03-2024 Patient encounter procedure [facility] Work Phone: Start: 02-27-2024 Non-patient / Non-visit [facility] Work Phone: Start: 12-17-2023 End: 12-17-2023 ambulatory [facility] Work Phone: Start: 12-17-2023 End: 12-17-2023 Patient encounter procedure [facility] Work Phone: Start: 12-05-2023 End: 12-05-2023 ambulatory [facility] Work Phone: Start: 12-05-2023 End: 12-05-2023 Patient encounter procedure [facility] Work Phone: Start: 10-23-2023 Non-patient / Non-visit [facility] Work Phone: Start: 10-08-2023 Non-patient / Non-visit [facility] Work Phone: Start: 10-07-2023 End: 10-07-2023 ambulatory BARBIE Tellez POCOS Not Available Start: 09-18-2023 End: 09-18-2023 ambulatory Jeremy Magallanes Other [facility] Other Start: 09-18-2023 Telephone encounter Jeremy Sona [facility] Start: 09-13-2023 End: 09-13-2023 ambulatory Jeremy Sona Other [facility] Other Start: 09-13-2023 Office outpatient vi sit 15 minutes Jeremy Sona [facility] Start: 09-13-2023 End: 09-13-2023 Patient encounter procedure [facility]- Start: 09-11-2023 Telephone encounter Argentina coleman PT Work Phone: [facility] Comment on above: re: PT Balta [...] 09-10-2023 End: 09-10-2023 ambulatory Jeremy Magallanes Other [facility] Other Start: 09-10-2023 Telephone encounter Jeremy Sona [facility] Start: 09-06-2023 End: 09-06-2023 ambulatory Jeremy Magallanes Other [facility] Other Start: 09-06-2023 Telephone encounter Jeremy Sona [facility] Start: 09-02-2023 End: 09-02-2023 ambulatory JIN POCOS Not Available Start: 08-20-2023 End: 08-20-2023 ambulatory Jeremy Magallanes Other [facility] Other Start: 08-20-2023 Telephone encounter Jeremy Sona [facility] Start: 08-13-2023 End: 08-13-2023 ambulatory Jeremy Sona Other [facility] Other Start: 08-13-2023 Office outpatient vi sit 25 minutes Jeremy Magallanes [facility] Start: 08-13-2023 Telephone encounter Jeremy Sona [facility] Start: 08-06-2023 End: 08-06-2023 ambulatory Jeremy Sona Other [facility] Other Start: 08-06-2023 Telephone encounter Jeremy Sona [facility] Start: 07-29-2023 End: 07-29-2023 ambulatory JIN POCOS Not Available Start: 07-22-2023 End: 07-22-2023 ambulatory Jeremy Magallanes Other [facility] Other Start: 07-22-2023 Telephone encounter Jeremy Magallanes [facility] Start: 07-19-2023 End: 07-19-2023 ambulatory Jeremy Magallanes Other [facility] Other Start: 07-19-2023 Telephone encounter Jeremy Magallanes [facility] Start: 07-18-2023 End: 07-18-2023 ambulatory Jeremy Magallanes Other [facility] Other Start: 07-18-2023 Telephone encounter Jeremy Magallanes [facility] Start: 07-02-2023 End: 07-02-2023 ambulatory Jeremy Magallanes Other [facility] Other Start: 07-02-2023 Office outpatient vi sit 15 minutes Jeremy Magallanes [facility] Start: 07-02-2023 Telephone encounter Jeremy Magallanes [facility] Start: 06-25-2023 End: 06-25-2023 ambulatory Jeremy Magalalnes Other [facility] Other Start: 06-25-2023 Office outpatient vi sit 15 minutes Jeremy Magallanes [facility] Start: 06-21-2023 End: 06-21-2023 ambulatory Jeremy Magallanes Other [facility] Other Start: 06-21-2023 Encounter by compute r link Jeremy Magallanes [facility] Start: 06-20-2023 End: 06-20-2023 ambulatory Jeremy Sona Other [facility] Other Start: 06-20-2023 Telephone encounter Jeremy Magallanes [facility] Start: 06-17-2023 End: 06-17-2023 ambulatory Jeremy Magallanes Other [facility] Other Start: 06-17-2023 Telephone encounter Jeremy Magallanes [facility] Start: 06-10-2023 End: 06-10-2023 ambulatory Jeremy Sona Other [facility] Other Start: 06-10-2023 Telephone encounter Jeremy Sona [facility] Start: 06-03-2023 End: 06-03-2023 ambulatory Jeremy Sona Other [facility] Other Start: 06-03-2023 Telephone encounter Jeremy Sona [facility] Start: 05-30-2023 End: 05-30-2023 Patient encounter procedure Barbie Tellez Siridoron [facility] Start: 05-28-2023 End: 05-28-2023 ambulatory Jeremy Sona Other [facility] Other Start: 05-28-2023 Office outpatient vi sit 15 minutes Jeremy Sona [facility] Start: 2023 End: 2023 ambulatory Jeremy Sona Other [facility] Other Start: 2023 Office outpatient vi sit 15 minutes Jeremy Sona [facility] Start: 05-16-2023 End: 05-16-2023 ambulatory Jeremy Sona Other [facility] Other Start: 05-16-2023 Telephone encounter Jeremy Sona [facility] Start: 04-30-2023 End: 04-30-2023 ambulatory Jeremy Sona Other [facility] Other Start: 04-30-2023 Office outpatient vi sit 15 minutes Jeremy oSna [facility] Start: 04-26-2023 End: 04-26-2023 ambulatory Jeremy Sona Other [facility] Other Start: 04-26-2023 Telephone encounter Jeremy Sona [facility] Start: 04-23-2023 End: 04-23-2023 ambulatory Jeremy Sona Other [facility] Other Start: 04-23-2023 Telephone encounter Jeremy Sona [facility] Start: 03-25-2023 End: 03-25-2023 ambulatory Jeremy Sona Other [facility] Other Start: 03-25-2023 Telephone encounter Jeremy Magallanes [facility] Start: 03-06-2023 End: 03-06-2023 ambulatory Jeremy Magallanes Other [facility] Other Start: 03-06-2023 Telephone encounter Jeremy Magallanes [facility] Start: 02-20-2023 End: 02-20-2023 ambulatory Jeremy Sona Other [facility] Other Start: 02-20-2023 Office outpatient vi sit 25 minutes Jeremy Sona [facility] Start: 02-05-2023 End: 02-05-2023 ambulatory Jeremy Sona Other [facility] Other Start: 02-05-2023 Telephone encounter Jeremy Magallanes [facility] Start: 01-21-2023 End: 01-21-2023 ambulatory Jeremy Sona Other [facility] Other Start: 01-21-2023 Telephone encounter Jeremy Sona [facility] [employer] Start: 01-17-2023 End: 01-17-2023 ambulatory Jeremy Magallanes Other [facility] Other Start: 01-17-2023 Office outpatient vi sit 15 minutes Jeremy Sona [facility] Start: 12-24-2022 End: 12-24-2022 ambulatory Jeremy Magallanes Other [facility] Other Start: 12-24-2022 Telephone encounter Jeremy Magallanes [facility] Start: 12-03-2022 End: 12-03-2022 ambulatory Jeremy Magallanes Other [facility] Other Start: 12-03-2022 Telephone encounter Jeremy Magallanes [facility] Start: 11-27-2022 End: 11-27-2022 ambulatory Jeremy Magallanes Other [facility] Other Start: 11-27-2022 Telephone encounter Jeremy Sona [facility] Start: 11-26-2022 End: 11-26-2022 ambulatory Jeremy Magallanes Other [facility] Other Start: 11-26-2022 Telephone encounter Jeremy Magallanes [facility] Start: 11-24-2022 End: 11-25-[address] JEREMY MAGALLANES Facility:[facility] Start: 11-23-2022 End: 11-23-2022 ambulatory Jeremy Magallanes Other [facility] Other Start: 11-23-2022 Office outpatient vi sit 15 minutes Jeremy Magallanes [facility] Start: 11-05-2022 End: 11-05-2022 ambulatory Jeremy Magallanes Other [facility] Other Start: 11-05-2022 Telephone encounter Jeremy Sona [facility] Start: 10-03-2022 End: 10-03-2022 ambulatory Jeremy Magallanes Other [facility] Other Start: 10-03-2022 Telephone encounter Jeremy Magallanes [facility] Start: 09-04-2022 End: 09-04-2022 ambulatory Jeremy Magallanes Other [facility] Other Start: 09-04-2022 Office outpatient vi sit 25 minutes Jeremy Magallanes [facility] Start: 07-26-[address] JEREMY MAGALLANES [facility] ity:[facility] Start: 07-19-2022 End: 07-20-[address] WILFREDO ENGLE Facility:[facility] Start: 06-07-2022 End: 06-07-[address] JEREMY MAGALLANES Facility:[facility] Start: 03-15-2022 ambulatory KESHA TRUJILLO Facility:[facility] Start: 02-06-2022 End: 02-06-2022 ambulatory Kesha Trujillo Other [facility] Other Start: 02-06-2022 Office outpatient vi sit 25 minutes Kesha Sharmaxa [facility] Start: 02-02-2022 End: 02-03-2022 ambulatory KESHA TRUJILLO Facility:H1 Start: 12-28-2021 End: 12-28-[address] JEREMY MAGALLANES Facility:[facility]1 Start: 12-12-2021 End: 12-13-2021 ambulatory KESHA UNRULYMARTIN Located Within [facility] Other Start: 12-12-2021 Office outpatient ne w 30 minutes Kesha Olexa [facility] Start: 05-26-2021 Office outpatient vi sit 15 minutes Harriet Ginty [facility] Procedures Date Procedure Procedure Detail Performing Clinician Start: 06-03-2024 Esophagogastroduodenoscopy Priyanka vázquez SEMICONDUCTOR DEVELOPMENT TECHNICIAN-LINOTYPE MACHINIST Work Phone: Start: 06-03-2024 Level i surg [...] Vaccines (3 - Td or Tdap) [facility] Start: 05-27-2025 Adult BMI Screening Adult BMI Screening [facility] Start: 05-27-2025 Tobacco Screening Tobacco Screening [facility] Start: 10-15-2024 Patient referral [facility] Work Phone: Start: 04-19-2024 Influenza vaccination Influenza Vaccine [facility] Start: 04-07-2024 End: 04-07-2024 Patient encounter procedure 04/07/2024 10:30 AM EDT Office Visit [facility] [address] [facility] [address] [place] [address] Malathi Sanchez MD [address] [facility] [address] [place] [address] Arrived [facility] Comment on above: Arrived Start: 03-18-2024 Patient referral [facility] Work Phone: Start: 10-07-2023 End: 10-07-2023 Patient encounter procedure 10/07/2023 8:00 AM EST Office Visit [facility] [address] [place] [address] Barbie Jesus DO [address] [place] [address] [facility] Start: 2010 Administration of varicella zoster vaccine Zoster (Shingles) Vaccine (1 of 2) [facility] Start: 1978 Adult BMI Follow Up Plan Adult BMI Follow Up Plan [facility] Start: 1972 Depression Screening Depression Screening [facility] Start: 1960 Tobacco Counseling Tobacco Counseling [facility] Comprehensive metabo lic 2000 panel - Serum or Plasma [facility] CT Chest [facility] Neck W contrast IV [facility] End: 05-27-2025 Esophagogastroduodenoscopy EGD GI Routine Dysphagia, unspecified type Black stools 1 Occurrences starting 05/27/2024 until 05/27/2025 [employer] Work Phone: Comment on above: 1 Occurrences starting 05/27/2024 until 05/27/2025 Patient referral [facility] Work Phone: XR Pelvis and Hip - bilateral Views [facility] Immunizations Immunization Date Immunization Notes Care Provider Fa cilicourtney 06-02-2018 Influenza, injectabl e, Madin Foster Canine Kidney, preservative free, quadrivalent Argentina Clinton PT Work Phone: [facility] 06-02-2018 influenza virus vaccine, unspecified formulation Priyanka Vaz SEMICONDUCTOR DEVELOPMENT TECHNICIAN-LINOTYPE MACHINIST Work Phone: [facility] 05-17-2017 influenza virus vaccine, split virus (incl. purified surface antigen) Jeremy Magallanes Other [facility] Other 05-17-2017 influenza virus vaccine, unspecified formulation [facility] 05-16-2017 influenza, injectabl e, quadrivalent, preservative free Argentina Clinton PT Work Phone: [facility] 06-28-2016 influenza, injectabl e, quadrivalent, preservative free Argentina Clinton PT Work Phone: [facility] 06-28-2016 tetanus and diphther ia toxoids, adsorbed, preservative free, for adult use (5 Lf of tetanus toxoid and 2 Lf of diphtheria toxoid) Jeremy Magallanes Other [facility] 05-25-2015 influenza, seasonal, injectable, preservative free Argentina Clinton PT Work Phone: [facility] 05-25-2015 tetanus and diphther ia toxoids, adsorbed, preservative free, for adult use (5 Lf of tetanus toxoid and 2 Lf of diphtheria toxoid) Jeremy Magallanes Other [facility] 06-15-1999 pneumococcal conjuga te vaccine, 7 valent Argentina Clinton PT Work Phone: [facility] Payers Date Payer Category Payer Medicaid [id number] 2013 Medicare [id number] 1960 Unknown [id number] 2.16.84 0.1.225444.3.579.2.593 1960 Unknown [id number] 2.16.84 0.1.382165.3.579.2.593 1960 Unknown [id number] 2.16.84 0.1.282754.3.579.2.593 1960 Unknown [id number] 2.16.84 0.1.855387.3.579.2.593 1960 Unknown [id number] 2.16.84 0.1.284354.3.579.2.593 1960 Unknown [id number] 2.16.84 0.1.163437.3.579.2.593 1960 Unknown [id number] 2.16.84 0.1.316600.3.579.2.593 1960 Unknown [id number] 2.16.84 0.1.676844.3.579.2.593 1960 Unknown [id number] 2.16.84 0.1.004284.3.579.2.1259 1960 Unknown [id number] 2.16.84 0.1.703302.3.579.2.1259 1960 Unknown [id number] 2.16.84 0.1.799141.3.579.2.1259 1960 Unknown [id number] 2.16.84 0.1.685602.3.579.2.1259 1960 Unknown [id number] 2.16.840 .1.346489.3.579.2.1259 1960 Unknown [id number] 2.16.8 40.1.455791.3.579.2.1286 1960 Unknown [id number] 2.16.8 40.1.687642.3.579.2.727 1960 Unknown [id number] 2.16.8 40.1.434250.3.579.2.727 1960 Unknown [id number] 2.16. 840.1.138156.3.579.2.196 1960 Unknown [id number] 2.16. 840.1.374672.3.579.2.196 1960 Unknown [id number] 2.16. 840.1.424402.3.579.2.196 1960 Unknown [id number] 2.16. 840.1.871853.3.579.2.196 1960 Unknown [id number] 2.16. 840.1.314810.3.579.2.196 1959 Medicaid [id number] 2. 16.840.1.277780.19 1959 Medicare [id number] 2.1 6.840.1.240452.19 Self-pay [id number] Social History Date Type Detail Facility Start: 09-29-2020 End: 09-02-2023 Sex Assigned At [facility] Tobacco smoking status [facility] Start: 06-03-2019 End: 03-27-2023 Tobacco smoking status [facility] Smokes tobacco daily [facility] Work Phone: History of tobacco [...] orientation Heterosexual (finding) [facility] Start: 02-06-2017 End: 02-16-2025 Tobacco smoking status SCIS Ex-smoker (finding) [facility] consumption unknown [facility] Start: 1960 Sex assigned at Not on file [facility] Frequency of Alcohol Consumption Never [facility] Start: 06-01-2019 End: 01-21-2025 Sex Male (finding) [facility] Medical Equipment Procedure Code Equipment Code [...] 11-04-2024 End: 11-05-2024 Blood Sugar Diagnostic (Accu-Chek Ay Plus Test Strp) strip Start: 11-05-2024 End: 11-05-2024 Blood Sugar Diagnostic (Accu-Chek Ya Plus Test Strp) strip Start: 11-05-2024 End: 11-06-2024 Lancets (Accu-Ch ek Fastclix Lancet Drum) [facility] Start: 10-26-2024 End: 10-27-2024 Lancets (Accu-Ch ek Fastclix Lancet Drum) [facility] Start: 10-27-2024 End: 10-28-2024 Clinical Notes 05-26-2021 to 12-22-2024 Note Date & Type Note Facility 12-22-2024 Evaluation note Diagnosis Onset Date Resolution Bronchitis acute December 22, 2024 8:19am Bruising acute December 22, 2024 8:19am Enlarged prostate acute December 8:19am Screening PSA (prostate specific antigen) acute December 22, 2024 8:19am Type II diabetes mellitus acute December 22, 2024 8: 19am [facility] Work Phone: 1(335) 341-736605-06-2025 Evaluation note* Diagnosis Onset Date Resolution Status Admit Date Bronchitis acute December 22, 2024 8:19am Bruising acute December 22, 2024 8:19am Enlarged prostate acute December 8:19am Screening PSA (prostate spec ific antigen) acute December 22, 2024 8: 19am Type II diabetes mellitus acute December 22, 2024 8:19am Bronchitis acute January 21, 2025 9:26am [facility] Work Phone: 1(507) 584-831003-19-2025 NoteProgress Note-Nurse LVM to talk about A1C level, he will be getting a one year card but will have to talk with his PCP about getting that number down.[facility] 10-15-2024 Evaluation note* Diagnosis Onset Date Resolution Status Admit Date Bladder diverticulum acute Febr 2024 8:52am Enlarged prostate acute 2024 8:52am Lymphadenopathy acute October 15, 2024 8:52am Urticaria acute October 15, 2024 8:52am Bruising acute December 22, 2024 8:19am Enlarged prostate acute December 8:19am Screening PSA (prostate spec ific antigen) acute December 22, 2024 8: 19am Type II diabetes mellitus acute December 22, 2024 8:19am [facility] Work Phone: 1(440) 796-400112-05-2024 Evaluation note* Diagnosis Onset Date Resolution Status Admit Date GERD (gastroesophageal reflu x disease) acute July 23 10:18am Lymphadenopathy acute July 23, 2024 10:18am Mass of left submandibular region acute July 23 10:18am Bladder diverticulum acute 2024 8:52am Enlarged prostate acute 2024 8:52am Lymphadenopathy acute October 15, 2024 8:52am [facility] Work Phone: 1(910) 788-621110-25-2024 Miscellaneous Notes* Telephone Encounter - Evelyn Mendoza [...] Address verified with patient. [facility] Telephone encounter Note* Telephone Encounter - [...] risk of esophageal cancer. Thanks, Dr. Kc [facility]10-25-2024 Telephone encounter Note* Telephone Encounter - Evelyn Mendoza CMA - 06/12/2024 12:00 PM EDT Spoke with patient regarding pathology results. Patient verbally understood with no further questions. 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 Address verified with patient. [facility]10-09-2024 History of Present illness Narrative* Priyanka Vaz, SEMICONDUCTOR DEVELOPMENT TECHNICIAN-LINOTYPE MACHINIST - 05/27/2024 2:30 PM EDT Images from [...] gallbladder polyp. He saw Dr. Martinez in [place] for this. He also reports a positive [...] confusion. 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 While intending to generate a timely document that accurately reflects the content of the visit, no guarantee can be provided that every grammatical or spelling mistake has been or will be identified or corrected. Thank you for your understanding. CHARLEE Biggs 05/27/24 1555 documented in this encounterGood Samaritan HospitalRoses & Rye [id number] Telephone encounter Note* Telephone Encounter - Vivian [...] completed: 04/08/2024 Barium Swallow 03/21/2024 CT Chest [facility]09-27-2024 Miscellaneous Notes* Telephone Encounter - [...] see below and advise documented in [facility] Telephone encounter Note * Telephone Encounter - Keily Martines - 05/14/2024 1:07 PM EDT Images from the original note were not included. Referral was sent from [facility] for new consult with Dr Meraz Please see below and advise [facility]09-16-2024 Telephone encounter Note* Telephone Encounter - Cynthia Sanchez - 05/04/2024 9:45 AM EDT Left message on sister's voice mail to contact Dr Magallanes's office for referral. [facility] [id number] Miscellaneous Notes* Telephone Encounter - Cynthia Sanchez [...] referral sent to Dr Ameya Meraz at [facility]. He is a gastrologist. The fax number is [phone] . Pt's sister would like a call back at [phone]. documented in this encounterLafayette Regional Health [id number] Telephone encounter Note* Telephone Encounter - Malathi Sanchez MD - 05/04/2024 9:27 AM EDT That needs to be done by Dr Magallanes's office [facility] [id number] Telephone encounter Note* Telephone Encounter - Cynthia Sanchez - 05/04/2024 9:15 AM EDT Pt's sister called in. She said her brother would like a referral sent to Dr Ameya Meraz at [facility]. He is a gastrologist. The fax number is [phone] . Pt's sister would like a call back at [phone]. [facility] [id number] History of Present illness Narrative* Malathi Sanchez MD - 04/07/2024 10:30 AM EDT Subjective Patient ID: Alex Carig is a 63 y.o. male who presents for Neck Mass (CT @ [facility] 02/26>[facility]) Pt reports he is getting [...] resolved. F/U if recurs documented in this [facility]02-14-2024 Telephone encounter Note* Telephone Encounter - Maris Tavera - 10/02/2023 1:35 PM EST No attempts to hear back; closing referral. [facility] [id number] Miscellaneous Notes* Telephone Encounter - Maris Tavera - 10/02/2023 1:35 PM EST No attempts to hear back; closing referral. documented in this [facility]01-26-2024 Evaluation note* Encounter Date Diagnosis Assessment Notes Treatment Notes Treatment Clinical Notes Aug, Chronic obstructive pulmonary disease, unspecified (ICD-10 - J44.9) Finish antibiotics and prednisone as prescribed. Denies pulmonary referral at this time. Hasn't smoked since 09/08 and declines chantix or patches. Aug, Current smoker (ICD-10 - F17.200) [facility] Other 01-23-2024 Evaluation note* Encounter Date Diagnosis Assessment Notes Treatment Notes Treatment Clinical Notes Aug, Lumbar radicular pain (ICD-10 - M54.16) [facility] Other 01-19-2024 Evaluation note* Encounter Date Diagnosis Assessment Notes Treatment Notes Treatment Clinical Notes Aug, Lumbar radicular pain (ICD-10 - M54.16) [facility] Other 12-26-2023 Evaluation note* Encounter Date Diagnosis Assessment Notes Treatment Notes Treatment Clinical Notes Jul, Type 2 diabetes mellitus with hyperglycemia, without long-term current use of insulin (ICD-10 - E11.65) [facility] Other 12-26-2023 Evaluation note* Encounter Date Diagnosis [...] T3s after shoulder pain has improved post-operatively. [facility] Other 12-04-2023 Evaluation note* Encounter Date Diagnosis Assessment Notes Treatment Notes Treatment Clinical Notes Jul, Type 2 diabetes mellitus with hyperglycemia, without long-term current use of insulin (ICD-10 - E11.65) [facility] Other 12-01-2023 Evaluation note* Encounter Date Diagnosis Assessment Notes Treatment Notes Treatment Clinical Notes Jul, Type 2 diabetes mellitus with hyperglycemia, without long-term current use of insulin (ICD-10 - E11.65) [facility] Other 11-30-2023 Evaluation note* Encounter Date Diagnosis Assessment Notes Treatment Notes Treatment Clinical Notes Jun, Labral tear of shoulder, right, subsequent encounter (ICD-10 - S43.431D) [facility] Other 11-14-2023 Evaluation note* Encounter Date Diagnosis [...] pain (ICD-10 - R07.9) r/o cardiac cause [facility] Other 11-07-2023 Evaluation note* Encounter Date Diagnosis [...] to decrease dose and possibly discontinue medication. [facility] Other 11-02-2023 Evaluation note* Encounter Date Diagnosis Assessment Notes Treatment Notes Treatment Clinical Notes Jun, Acute pain of right shoulder (ICD-10 - M25.511) [facility] 10-30-2023 Evaluation note* Encounter Date Diagnosis Assessment Notes Treatment Notes Treatment Clinical Notes May, Acute pain of right shoulder (ICD-10 - M25.511) [facility] Other 10-23-2023 Evaluation note* Encounter Date Diagnosis Assessment Notes Treatment Notes Treatment Clinical Notes May, Acute pain of right shoulder (ICD-10 - M25.511) [facility] Other 10-16-2023 Evaluation note* Encounter Date Diagnosis Assessment Notes Treatment Notes Treatment Clinical Notes May, Acute pain of right shoulder (ICD-10 - M25.511) [facility] Other 10-10-2023 Evaluation note* Encounter Date Diagnosis Assessment Notes Treatment Notes Treatment Clinical Notes May, Acute pain of right shoulder (ICD-10 - M25.511) MRI and surgery planning pending. Pt understands this is a controlled substance and to call in 1 week w update on treatment plan. May, Bronchitis (ICD-10 - J40) Finish antibiotic, rest, hydrate Steroids for wheezing. [facility] Other 10-04-2023 Evaluation note* Encounter Date Diagnosis Assessment Notes Treatment Notes Treatment Clinical Notes May, Acute pain of right shoulder (ICD-10 - M25.511) Reviewed [place] and discussed short term plan of increase in pain medication. He is due for a refill of the T3s presently. Stop them, replace w norco. Pt understands weekly prescription and will need to d/c after anticipated surgery. [facility] Other 09-12-2023 Evaluation note* Encounter Date Diagnosis [...] office and the ER visit on 04/26 [facility] Other 07-05-2023 Evaluation note* Encounter Date Diagnosis [...] and will need less prn pain med. [facility] Other 06-01-2023 Evaluation note* Encounter Date Diagnosis [...] left shoulder (ICD-10 - M25.512) as above. [facility] Other 04-17-2023 Evaluation note* Encounter Date Diagnosis Assessment Notes Treatment Notes Treatment Clinical Notes Nov, Bronchitis (ICD-10 - J40) [facility] Other 04-11-2023 Evaluation note* Encounter Date Diagnosis Assessment Notes Treatment Notes Treatment Clinical Notes Nov, Disc degeneration, lumbar (ICD-10 - M51.36) Nov, Lumbar radicular pain (ICD-10 - M54.16) [facility] Other 04-07-2023 Evaluation note* Encounter Date Diagnosis [...] quit smoking. Pt verbalizes understanding and agreement. [facility] Other 02-15-2023 Evaluation note* Encounter Date Diagnosis Assessment Notes Treatment Notes Treatment Clinical Notes Sep, Lumbar radicular pain (ICD-10 - M54.16) [facility] Other 01-17-2023 Evaluation note* Encounter Date Diagnosis [...] is outlined on the test result page. [facility] Other 10-20-2022 NoteIndication: Calculus in kidney. Comparison: [...] of infection, hardware pullout, cuff repair failure, care home pain and stiffness are well known problems [...] of repair, infection and wound healing delays. [facility] Other 04-26-2022 NotePROCEDURE: XR SHOULDER LT 2V or > COMPARISON: None. HISTORY: Pain of left shoulder joint FINDINGS: BONES:No acute fracture or dislocation. 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 No visible soft tissue swelling. EFFUSION:None visible. OTHER: Negative. IMPRESSION: Mild osteoarthritis Electronically authenticated by: BARBIE MEMBRENO Date: 2021-12-12 15:25[facility] Evaluation note* Encounter Date Diagnosis [...] pain of left shoulder (ICD-10 - M25.512) [facility] Other 10-08-2021 Evaluation note* Encounter Date Diagnosis [...] as needed for cough. Advised patient that Mozier contains antihistamine and cough suppressant and to be cautious using other OTC cold medications. Patient to follow up with PCP if symptoms do not improve. Immediate eval if SOB, difficulty breathing, chest pain, dizziness, or other concerning symptoms. Patient verbalizes understanding and is agreeable to treatment plan [facility] Other Evaluation + Plan note No data available for this section [facility] noteNo InformationNortSharon Regional Medical Center [facility] Other Evaluation note* Diagnosis Onset Date Resolution Status Arthralgia acute Lumbar pain acute Type II diabetes mellitus ac [facility] Work Phone: Evaluation note* Diagnosis Onset Date Resolution Status Arthralgia acute Lumbar pain acute Type II diabetes mellitus ac [place] Bilateral hip pain [facility] Work Phone: Evaluation note* Diagnosis Onset Date Resolution Status Arthralgia acute Lumbar pain acute Type II diabetes mellitus ac [place] Bilateral hip pain acute Lumbar pain [facility] Work Phone: Evaluation note* Diagnosis Onset Date Resolution Status Submandibular abscess acute Chronic obstructive pulmonary disease, unspecified acute Esophageal abnormality acute Mass of left submandibular region acute [facility] Work Phone: Evaluation note* Diagnosis Onset Date Resolution Status Chronic obstructive pulmonary disease, unspecified acute Esophageal abnormality acute Mass of left submandibular region acute 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 Hiatal hernia [facility] Work Phone: Evaluation note* Diagnosis Esophageal dysphagia- Primary Dysphagia, pharyngoesophageal phase Neck mass Swelling, mass, or lump in head and neck documented in this encounter [facility] HealthcareEvaluation note* Diagnosis Dysphagia, unspecified type- Primary Black stools Nonspecific abnormal finding in stool contents Gastroesophageal reflux disease, unspecified whether esophagitis present Abnormal esophagram documented in this encounter [facility]* Diagnosis Dysphagia, unspecified type Black stools Nonspecific abnormal finding in stool contents documented in this encounter [facility] SystemHistory general Narrative - Reported* Type Description Date Medical History Asthma Medical History skin cancer-lip Surgical History Left lung biopsy 1977 Surgical History L4 and L5 disc fusion 1984 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 Surgical History carpal tunnel release 2016 Surgical History tonsillectomy Hospitalization History 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 Hospitalization History pneumonia [facility] Other Hospital Discharge instructions No data available for this section [facility] Discharge instructionsAmbulatory Orders* Referral to ENT Time Frame: 03/18/24, Location: None [facility] Work Phone: Hospital Discharge instructionsAmbulatory Orders* Referral to Urology Time Frame: 10/15/24, Location: None [facility] Work Phone: InstructionsNot on filedocumented in this encounter [facility] SystemInstructionsNot on filedocumented in this encounter [facility] SystemInstructionsNot on filedocumented in this encounter [facility] SystemProgress note No data available for this section [facility] NorthReason for referral (narrative)No reason for referral information availableMiddletown Hospital Work Phone: Summary Purpose Family History [...] 1 Epigastric abdominal pain (R10.13) Referral Organization [facility] Basil nelson Referring Provider First Name Jeremy Referring Provider Last Name Sona Referring Provider Specialty [facility] [employer] Referred Organization [facility] Referred Provider Sai Martinez Referred Address ,[place], [place],[address] Referred Provider Specialty Surgery Referral Priority Routine General Notes Es Camilo 11:38:02 AM >received today, attachments made, notes locked, referral faxed Reason 01/28/23 Access Or tho - B shoulder pain L>R - hopes for injections. Diagnosis 1 Pain in right should er (M25.511) Referral Organization [facility] Basil nelson Referring Provider First Name Jeremy Referring Provider Last Name Sona Referring Provider Specialty [facility] [employer] Referred Organization [facility] Referred Provider Barbie Jesus Referred Address ,[place], [place],[address] Referred Provider Specialty Orthopaedic Surgery Referral Priority [...] in right should er (M25.511) Referral Organization [facility] Lisha nelson Referring Provider First Name Jeremy Referring Provider Last Name Sona Referring Provider Specialty [facility] Referred Organization [facility] Referred Provider Barbie Jesus Referred Address ,[place], [place],[address] Referred Provider Specialty Orthopaedic Surgery Referral Priority [...] content) Reason Onset Date Comments re: PT Balta 09/11/2023 He called noting he had just [...] call back reinier. 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 Difficulty Swallowing Nausea Vomiting Abdominal Pain RUQ PAIN (unrecognized sect ion and content) No Status Records FoundNo Status Records FoundNo Status Records FoundNo Status Records FoundNo Status Records FoundNo Status Records FoundNo Status Records FoundNo Status Records Found INFORMATION SOURCE (unrecogn ized section and content) DATE CREATED AUTHOR 12/04/2022 [facility] DATE CREATED AUTHOR AUTHOR'S ORGANIZ ATION 04/08/2024 [facility] EPIC DATE CREATED AUTHOR AUTHOR'S ORGANIZ ATION 05/23/2024 [facility] DATE CREATED AUTHOR AUTHOR'S ORGANIZ ATION 05/29/2024 [facility] DATE CREATED AUTHOR AUTHOR'S ORGANIZ ATION 06/12/2024 [facility] DATE CREATED AUTHOR AUTHOR'S ORGANIZ ATION 11/06/2024 [facility] DATE CREATED AUTHOR AUTHOR'S ORGANIZ ATION 11/11/2024 [facility] DATE CREATED AUTHOR AUTHOR'S ORGANIZ ATION 05/02/2025 [facility] Patient Care team informatio n (unrecognized [...] Provider Active Start : October 23, 2023 Community Development Manager Relationship Specialty Start Date End Date Jeremy Magallanes MD [address] [place] [phone] PCP - General Family Medicine 01/23/23 Team Status: Inactive Member Role Status Dates Jeremy Magallanes MD Attending Provider Active St art: September 13, 2023 End: September 13, 2023 Community Development Manager Relationship Specialty Start Date End Date Jeremy Magallanes MD [address] [facility] [place] [phone] Referring Family Medicine 05/12/24 Community Development Manager Relationship Specialty [place] [address] [place] [address], [place] [phone] PCP - General Family Medicine 01/23/23 Community Development Manager Relationship Specialty Start [place] [address] [place] [address], [place] [phone] PCP - General Family Medicine 01/23/23 Community Development Manager Relationship Specialty Start [place] [address] [place] [address], [place] [phone] PCP - General Family Medicine 01/23/23 Community Development Manager Relationship Specialty Start Date End Date Jeremy Magallanes MD [address] [place] [address] PCP - General Family Medicine 06/03/19 Community Development Manager Relationship Specialty Start Date End Date Jeremy Magallanes MD [address] [place] [address] PCP - General Family Medicine 06/03/19 Community Development Manager Relationship Specialty Start Date End Date Jeremy Magallanes MD [address] [place] [address] PCP - General Family Medicine 06/03/19 Community Development Manager Relationship Specialty Start Date End Date Jeremy Magallanes MD [address] [place] [phone] PCP - General Family Medicine 06/03/19 Team [...] 2025 Jeremy Magallanes MD Attending Provider Active art: February 16, 2025 End: February 16, [...] or prosecute any alcohol or drug abuse patient.[facility] FOR RECORDS PERTAINING TO PATIENTS [...] BE BASED ON THE PRIMARY CLINICAL RECORDS. [employer] [facility]. provides no warranty or guarantee of the accuracy or completeness of information in this document.
--- NOTE | 2025-05-05 08:35 | PM.CN ---
Consult Note: HPI Data of Consult Patient: known to practice within the last 3 years Consult date: 05/05/25 Requesting Physician: Janneth Villalta NP Primary Care Provider: Hannah Gallo MD Consult Narrative Reason for consult: right flank and thoracic pain Narrative: Nicholas Ziegler a pleasant 64 year old male presents for evaluation of chronic right middle and low back pain, has had persistent lumbar and thoracic pain >12 months unresponsive to >6 weeks of PT/HEP, heat, ice, tylenol, and allergy to NSAIDs. Pain today 5/10 stabbing aching, increasing with standing, walking, pushing, pulling, pending, lifting. pain improved mildly with sleep, tylenol #3 and flexeril. denies medications side effects. recently underwent thoracic MRI with results below. on 04/26/25 underwent right T9,10,11 intercostal nerve block with >80% improvement in pain while anesthetized, preop pain up to 9/10 post op pain 1/10. Pt interested in proceeding with RFA for intermediate relief. cc:: CC: Janneth Villalta NP [facility] Medical History Melanoma ?C43.9 - Malignant melanoma of skin, unspecified (ICD-10) Tobacco user ?Z72.0 - Tobacco use (ICD-10) Type 2 diabetes mellitus with hyperglycemia ?E11.65 - Type 2 diabetes mellitus with hyperglycemia (ICD-10) Acute exacerbation of chronic obstructive pulmonary disease (COPD) ?J44.1 - Chronic obstructive pulmonary disease with (acute) exacerbation (ICD-10) Lumbar degenerative disc disease ?M51.36 - Other intervertebral disc degeneration, lumbar region (ICD-10) Influenza ?J11.1 - Influenza due to unidentified influenza virus with other respiratory manifestations (ICD-10) Acute bronchospasm ?J98.01 - Acute bronchospasm (ICD-10) Postoperative pain, acute, shoulder ?G89.18 - Other acute postprocedural pain (ICD-10) ?M25.519 - Pain in unspecified shoulder (ICD-10) Fever ?R50.9 - Fever, unspecified (ICD-10) Acute pain of right shoulder ?M25.511 - Pain in right shoulder (ICD-10) Rotator cuff arthropathy of right shoulder ?M12.811 - Other specific arthropathies, not elsewhere classified, right shoulder (ICD-10) Diabetes ?E11.9 - Type 2 diabetes mellitus without complications (ICD-10) COPD (chronic obstructive pulmonary disease) ?J44.9 - Chronic obstructive pulmonary disease, unspecified (ICD-10) Surgical History H/O colonoscopy ?Z98.890 - Other specified postprocedural states (ICD-10) History of carpal tunnel release ?Z98.890 - Other specified postprocedural states (ICD-10) H/O lumbosacral spine surgery ?Z98.890 - Other specified postprocedural states (ICD-10) S/P right rotator cuff repair ?Z98.890 - Other specified postprocedural states (ICD-10) Family History Other Family history of COPD (chronic obstructive pulmonary disease) Family history of cancer Family history of hypertension Social History Within the past year, how often did you have a drink containing alcohol: never Score interpretation: A score less than 4 is consistent with normal alcohol consumption. Smoking status: Current every day smoker Non-prescribed substance use: denies use Previous occupational history: retired Highest level of school completed/degree received: GED or equivalent Are you now , , , , never or living with a partner: In a typical week, how many times do you talk on the telephone with family, friends, or neighbors: 3 or more times per week How often do you get together with friends or relatives: 3 or more times per week How often do you attend taoism or protestant services: never Do you belong to any clubs or organizations such as taoism groups unions, fraternal or athletic groups, or school groups: no Total score: 2 Score interpretation: A score of greater than or equal to 2 indicates the lowest level of social isolation. Little interest or pleasure in doing things: not at all Feeling down, depressed, or hopeless: not at all Feel stressed/tense/nervous/anxious/difficulty sleeping: not at all Do you think of yourself as: straight/heterosexual Gender Identity: male Meds Home Medications and Allergies Home Medications ?Medication ?Instructions ?Recorded ?Confirmed ?Type glipizide 5 mg-metformin 500 mg 1 tab PO BID 08/23/23 04/26/25 History tablet lancets (Accu-Chek Fastclix Lancet 09/08/23 09/08/23 History Drum) albuterol sulfate 90 mcg/actuation 2 puff inhalation Q6H PRN 06/01/24 04/26/25 History aerosol inhaler shortness of breath or wheezing acetaminophen 300 mg-codeine 30 mg See Rx Instructions .Route 09/09/24 04/26/25 Rx tablet .COMPLEX PRN pain #180 tabs ondansetron 4 mg disintegrating mg 04/05/25 History tablet acetaminophen 300 mg-codeine 30 mg See Rx Instructions .Route 04/14/25 04/26/25 Rx tablet .COMPLEX PRN pain #180 tabs Allergies Allergy/AdvReac Type Severity Reaction Status Date / Time fentanyl Allergy Intermediate Hives Verified 04/26/25 13:32 ofloxacin Allergy Intermediate HIVES Verified 04/26/25 13:32 olodaterol (From Stiolto Allergy Intermediate SHORTNESS Verified 04/26/25 13:32 Respimat) OF BREATH tiotropium (From Stiolto Allergy Intermediate SHORTNESS Verified 04/26/25 13:32 Respimat) OF BREATH zafirlukast Allergy Intermediate Hives Verified 04/26/25 13:32 Iodinated Contrast Media Allergy Unknown Unknown Verified 04/26/25 13:32 ibuprofen (From Motrin) AdvReac Mild Hives Verified 04/26/25 13:32 Exam Constitutional Documenting provider has reviewed patient's vital signs: yes Common normals: no apparent distress, oriented x3, healthy appearing, alert and well nourished General appearance: cooperative [facility] Common normals: normocephalic, hearing grossly normal bilaterally and moist oral mucous membranes Head and scalp: normocephalic Eye Common normals: PERRL Pupil: PERRL Neck & C-Spine Common normals: full ROM General: normal visual inspection Chest Common normals: inspection of chest normal Respiratory Common normals: normal respiratory effort, no retractions and no use of accessory muscles Back & Pelvis Thoracic spine/upper back: pain with ROM and thoracic spinal tenderness Lumbar spine/lower back: ROM limited, pain with ROM and straight leg raise negative bilaterally Sacroiliac joints: SI joints normal Other: sensation intact BLE strength 5/5 in BLE intercostal neuralgia noted to right T9,10,11 Extremity Common normals: normal to inspection and full ROM Neuro Common normals: oriented x3 Sensorium/orientation: alert Psych Common normals: mental status grossly normal, thought process normal, cooperative, affect normal, speech normal and activity/motor behavior normal Speech: normal speech Thought process: normal thought process Results Imaging thoracic mri: Attestation: I have reviewed the pertinent imaging results. Radiologist's impression: The thoracic vertebral body heights, alignment and bone marrow signal is unremarkable. The thoracic cord demonstrates normal signal and morphology. Mild hypertrophic changes and ligamentum flavum and facet degeneration notably T4-T5 and at T11-T12. This results in mild canal narrowing at T11-T12. Otherwise no significant disc disease, disc protrusion, central canal or neural foraminal narrowing identified elsewhere. Paraspinal soft tissues are unremarkable. Additional Findings Additional findings: If on a controlled substance or opioids, I have checked an OARRS report on this patient and there are no aberrancies noted in the prescribing history.??If on a controlled substance or opioid a drug screen was completed and reviewed within the last year, and if there has not been a drug screen completed we ordered one today to monitor higher risk, state monitored pain medication use. As part of providing excellent, safe, comprehensive care, the following was completed at our patient's visit: 1. A medication reconciliation and review to ensure accurate knowledge of current/active medications, including asking our patients to inform us about any ssjw-hpz-ikncpry medications or herbal remedies/nutritional supplements/alternative remedies. 2. A review to specifically ensure our patients have had annual screening for screening for depression, screening for tobacco use, and screening for unhealthy alcohol use. For concerning screenings had a discussion with the patient, provided patient education, and recommended follow-up with primary care provider when appropriate. If patient noted with a risk of falling, they received education on strength, gait, and balance training to prevent future risk of falling. Portions of this note may have been carried over from the previous visit and updated as appropriate. Please note this office utilizes paper charting in addition to the electronic medical record. A list of current medications, vitals, and PMH is available there as the clinical staff outside of myself do not have access to [employer] charting during the clinic day operations. As part of providing quality comprehensive care the current medications, vitals, and PMH were reviewed in the paper chart. Assessment and Plan Assessment and Plan (1) Intercostal neuralgia: Assessment and Plan: The patient has had over 3 months of moderate to severe right flank and thoracic pain with functional impairment and inadequate response to conservative care including NSAIDS (unless there are contraindication such as concurrent blood thinners), multiple oral or topical pain medications, and home exercise program/physical therapy.? Patient has completed >6 weeks of guided home exercise program and/or formal physical therapy program without relief of their symptoms.? I have reviewed the imaging of the thoracic and lumbar spine and no red flags were identified.? The Oswestry Disability Index was completed, and the patient scored a 38%.? The patient noted the following:?? moderate to severe pain impacting ADLs, sitting, standing, sleeping, social life, travel We discussed the risks and benefits of the procedure with the patient, and we are NOT planning on using sedation as outlined in the guidelines from Medicare unless there is a documented reason that sedation would be strongly recommended.?? ?The procedure will be completed with fluoroscopic guidance.? (2) Right flank pain, chronic: (3) Failed back syndrome: (4) Chronic prescription opiate use: Assessment and Plan: I feel these medications are improving the patient's quality of life and allow them to tolerate activities of daily living as well as participate in recreational activity.? The patient does not report intolerable side effects. The patient is NOT opioid naive and non-pharmacologic and non-opioid treatment has failed to significantly relieve the patient's pain and improve functionality. The patient has a diagnosis that is related to a somatic or visceral pain etiology. ? ?? I reviewed with the patient the potential risks and side effects with the use of? opioid medications including but not limited to respiratory depression,? sedation, and even . Within the last 12 months I have verified the patient has access to naloxone should? these effects occur. The patient was advised to let? their family know they had Naloxone in case they would need to administer? the medication. I advised the patient to avoid the use of any other? sedation substances including alcohol, THC, and benzodiazepines while? taking opioid medications due to the risk of compounding side effects and? detrimental outcomes. within the last 12 months I have reviewed the FARM FACILITY MANAGER, pain treatment agreement and urine drug screen.? ?? A drug screen was completed within the last year, and no aberrancies were noted regarding their use of controlled substances. The patient understands they are subject to the terms and conditions of the pain contract that they have signed. ? ?? I have checked an OARRS report on this patient today and there are no aberrancies noted in the prescribing history.? Plan right T9,10,11 intercostal RFA continue current medications, risks vs benefits reviewed continue HEP as tolerated f/u 1 month after RFA
== END 2025-05-05 08:20 | disposition home or self-care (01) ==
LOC: PM 08:20
PROVIDERS: PCP Family Medicine; Visit Provider Nurse Practitioner
DX: G58.8 Other specified mononeuropathies (principal); R10.9 Unspecified abdominal pain; G89.29 Other chronic pain; M96.1 Postlaminectomy syndrome, not elsewhere classified; Z79.891 Long term (current) use of opiate analgesic
CPT/HCPCS: G0463

== ENCOUNTER 2025-05-24 08:50 | Day surgery (SDC) | payer MEDICARE, MEDICAID, SELFPAY ==
[2025-05-24 08:11] VITALS: BP 134/80; PULSE 70; TEMP 37.2; O2SAT 96
[2025-05-24 08:47] VITALS: BP 129/74; BP 141/79; PULSE 74; PULSE 79; O2SAT 96
[2025-05-24] MEDS: LIDOCAINE HCL 2% 400 MG/20 ML MDV 10 ML INJ (08:50)
[2025-05-24] MEDS: BUPIVACAINE HCL 0.25% PF 25 MG/10 ML VIAL 2 ML INJ (08:55)
[2025-05-24] MEDS: DEXAMETHASONE SOD PHOS 10 MG/ML VIAL INJ (08:55)
--- NOTE | 2025-05-24 08:55 | P.ON_ITS ---
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 The site was marked.? Written informed consent was obtained and placed on the chart.? The patient was brought to the medical procedure unit and placed in the prone position.? A timeout was completed verifying correct patient, procedure, positioning, and special requirements.? The skin overlying the target points of the intercostal nerves was prepped and draped in the usual sterile fashion.? The target point was achieved with a 20-gauge 15 cm with a 10 mm curved active tip radiofrequency cannula under direct fluoroscopic visualization.? The needle was inserted at level T9 on the right side.? Motor stimulation was carried out at 2 Hz up to 5 volts with the absence of extremity activity.? This was repeated at level T10, 11 on right side.?? Sensory stimulation was carried out.? Concordant pain was realized at the above- mentioned sites.? Then radiofrequency lesioning was carried out times 120 seconds at 80 degrees at each level.? The radiofrequency probe was removed prior to cannula removal.? The above-mentioned injectate was placed in 1 mL increments.? The needle was removed.? Insertion sites were covered.? The patient was taken to the postoperative recovery area and monitored for an appropriate length of time before being found suitable for discharge in the company of a responsible adult. Anesthesia: Local Surgeon: Zacarias Pike Pathology: none sent Condition: stable Disposition: no change
--- OUTSIDE RECORDS SUMMARY | 2025-05-25 08:10 | XMS_ITS | Encounter Summary ---
Author Organization [facility] Address [address] [place] [address] Care Team Providers Care Biofuels Product Development Manager Name Role Phone Hannah Gallo MD Primary Care Provider [phone] Encounter Details Date Type Department Care Team (Late st Contact Info) Description 09/05/2023 Abstract [facility] [address] [place] [phone] Andre Jesus DO [address] [place] [address] Social History Tobacco Use Types Packs/Day Years [...] on filedocumented in this encounter Care Teams Biofuels Product Development Manager Relationship Specialty Start Date End Date Hannah Gallo MD PCP - General Family Medicine 01/23/23 documented as of this encounter
--- OUTSIDE RECORDS SUMMARY | 2025-05-25 08:10 | XMS_ITS | Encounter Summary ---
Author Organization [facility] Address [address] [place] [address] Care Team Providers Care Printer Slotter Helper Name Role Phone Hannah Gallo MD Primary Care Provider [phone] Encounter Details Date Type Department Care Team (Late st Contact Info) Description 10/19/2024 Orders Only [facility] [address] [facility] [address] [place] [address] Hannah Gallo MD [address] [facility] [place] [address] Social History Tobacco Use Types [...] on filedocumented in this encounter Care Teams Printer Slotter Helper Relationship Specialty Start Date End Date Hannah Gallo MD PCP - General Family Medicine 01/23/23 documented as of this encounter
--- OUTSIDE RECORDS SUMMARY | 2025-05-25 08:10 | XMS_ITS | Encounter Summary ---
Author Organization [facility] Address [address] [place] [address] Care Team Providers Care Phone Technician Name Role Phone Hannah Gallo MD Primary Care Provider [phone] Encounter Details Date Type Department Care Team (Late st Contact Info) Description 04/08/2024 Clinisync Result Encounter [facility] External Department Unsolicited Malathi Jimenez MD [address] [facility] [address] [place] [address] Social History Tobacco Use Types Packs/Day Years [...] EDT Narrative 04/08/2024 11:00 AM EDT The [address] [address] Fluoroscopy Report Signed Patient: NICHOLAS ZIEGLER MR#: [id number] : 1960 Acct:[id number] Age/Sex: 63 / M ADM Date: 04/08/24 Loc: [place] Attending Dr: Malathi Jimenez M.D. Ordering Physician: Malathi Jimenez M.D. Date of Service: 04/08/24 Procedure(s): [place] cineradiography Accession Number(s): [id number] cc: Hannah Gallo M.D.; Malathi Jimenez M.D. [facility] [address] [address] Patient Name: NICHOLAS ZIEGLER MRN: [id number] date: 1960 Sex: M Assigned Patient Location: [place] Current Patient Location: [place] Accession/Order Number: [id number] Exam Date: 04/08/2024 08:45 Report Date: 04/08/2024 [...] Signed By: 04/08/24 1100 DD/ 1057 TD/TT: Aeronautical Engineering Teacher: Procedure Note Radiology, Radiologist, MD - 04/08/2024 [place] [address] Fluoroscopy Report Signed Patient: NICHOLAS ZIEGLER JMR#: [id number] : 1960Acct:[id number] Age/Sex: 63 / MADM Date: 04/08/24 Loc: [place] Attending Dr: Malathi Jimenez M.D. Ordering Physician: Malathi Jimenez M.D. Date of Service: 04/08/24 Procedure(s): FL cineradiography Accession Number(s): [id number] cc: Hannah Gallo M.D.; Malathi Jimenez M.D. The [place] [address] Patient Name: NICHOLAS ZIEGLER MRN: [id number] date: 1960 Sex: M Assigned Patient Location: [place] Current Patient Location: [place] Accession/Order Number: [id number] Exam Date: 04/08/2024 08:45 Report Date: 04/08/2024 [...] M.D. Signed By:04/08/24 1100 DD/ 1057 TD/TT: Aeronautical Engineering Teacher: us Malathi Jimenez MD [facility] Final Resul t documented in this encounter Visit Diagnoses Not on filedocumented in this encounter Care Teams Phone Technician Relationship Specialty Start Date End Date Hannah Gallo MD PCP - General Family Medicine 01/23/23 documented as of this encounter
--- OUTSIDE RECORDS SUMMARY | 2025-05-25 08:10 | XMS_ITS | Clinical Summary ---
Author Organization [facility] Address [address] [place] [address] Care Team Providers Care Systems Analyst Developer Name Role Phone Hannah Gallo MD Primary Care Provider [phone] Allergies Active Allergy Reactions Criticality Noted Date [...] file Insurance MEDICARE MEDICAID [place] Care Teams Systems Analyst Developer Relationship Specialty Start Date End Date Hannah Gallo MD PCP - General Family Medicine 01/23/23
--- OUTSIDE RECORDS SUMMARY | 2025-05-25 08:10 | XMS_ITS | Clinical Summary ---
Author Organization [facility] Address [address] [place] [address] Care Team Providers Care Supply Chain Associate Name Role Phone Hannah Gallo MD Unavailable [phone] Social History Tobacco Use Types Packs/Day Years Used Date Smoking Tobacco: Never Assessed Sex and Gender Information Value Date Recorded Sex Assigned at Not on file Legal Sex Male 8:58 AM EST Gender Identity Not on file Sexual Orientation Not on file Plan of Treatment [place] [address] MEDICARE Care Teams Supply Chain Associate Relationship Specialty Start Date End Date Hannah Gallo MD [address] [place] [address] Referring Family Medicine 05/12/24
--- OUTSIDE RECORDS SUMMARY | 2025-05-25 08:10 | XMS_ITS | Clinical Summary ---
Author Organization [facility] Address [address] [place] [address] Care Team Providers Care Sql Manager Name Role Phone Unavailable Primary Care Provider Unavailabl e Source Comments The following information is NOT included in Care Everywhere downloads:Psychiatric notes, ECG results, Cardiac Rehab notes, Pulmonary Function notes, data from [employer] [facility] (includes but not limited toPregnancy data,audiograms, eye exams, pre-surgical evaluation notes, well-child exam data).[facility] Family History Medical History Relation Name Comments [...] Due Date Last Done Comments Colonoscopy 1960 Hepatitis C Antibody 1978 Tdap Booster 1978 Hepatitis A (HAV) Vaccine (optional start 19+ years) 1 Tetanus (Td or Tdap) Booster 1979 Cholesterol 1995 CRC Screening 2005 Cologuard (Stool DNA) 2005 FIT 2005 Pneumococcal Vaccine(s) (50+ yrs) (1 of 1 - PCV) 05/22 Shingles (RZV) Vaccine (1 of 2) 2010 Hepatitis B (HBV) Vaccine (optional start 60+ years) 1 COVID-19 Vaccine (1 - season) 2025 Influenza Vaccine (#1) 2025 Abdominal Aortic Aneurysm Imaging 2025 RSV vaccine (adult) (1 - 1-dose 75+ series) 2035 Insurance [employer] - HMO/PPO/POS
--- OUTSIDE RECORDS SUMMARY | 2025-05-25 08:10 | XMS_ITS | Encounter Summary ---
Author Organization [facility] Address [address] [place] [address] Care Team Providers Care Promotor Group Ticket Sales Name Role Phone Hannah Gallo MD Primary Care Provider [phone] Encounter Details Date Type Department Care Team (Late st Contact Info) Description 03/06/2023 Abstract [facility] [address] [place] [id number] Andre Jesus DO [address] [place] [address] Social History Tobacco Use Types Packs/Day Years [...] on filedocumented in this encounter Care Teams Promotor Group Ticket Sales Relationship Specialty Start Date End Date Hannah Gallo MD PCP - General Family Medicine 01/23/23 documented as of this encounter
--- OUTSIDE RECORDS SUMMARY | 2025-05-25 08:10 | XMS_ITS | Encounter Summary ---
Author Organization [facility] Address [address] [facility] [place] [address] Care Team Providers Care Wreath Machine Tender Name Role Phone Hannah Gallo MD Primary Care Provider [phone] Encounter Details Date Type Department Care Team (Late st Contact Info) Description 07/29/2023 Abstract [facility] [address] [facility] [address] [place] [id number] Andre Jesus, DO [address] [facility] [place] [address] Social History Tobacco Use Types Packs/Day Years [...] on filedocumented in this encounter Care Teams Wreath Machine Tender Relationship Specialty Start Date End Date Hannah Gallo MD PCP - General Family Medicine 01/23/23 documented as of this encounter
--- OUTSIDE RECORDS SUMMARY | 2025-05-25 08:11 | XMS_ITS | Clinical Summary ---
Author Organization [email or web address] tem Address [id number] [address] [place] [address] Care Team Providers Care Metal Machine Setter Name Role Phone Hannah Gallo MD Primary Care Provider [phone] Allergies Active Allergy Reactions Criticality Noted Date [...] file Insurance MEDICARE MEDICAID [place] Care Teams Metal Machine Setter Relationship Specialty Start Date End Date Hannah Gallo MD [address] [place] [address] PCP - General Family Medicine 06/03/19
--- OUTSIDE RECORDS SUMMARY | 2025-05-25 08:11 | XMS_ITS | Encounter Summary ---
Author Organization [facility] Address [address] [place] [address] Care Team Providers Care Lyric Writer Name Role Phone Hannah Gallo MD Primary Care Provider [phone] Encounter Details Date Type Department Care Team (Late st Contact Info) Description 05/30/2023 Clinisync Result Encounter [facility] External Department Unsolicited Andre Jesus, DO [address] [place], [place] [address] Social History Tobacco Use Types Packs/Day Years [...] on filedocumented in this encounter Care Teams Lyric Writer Relationship Specialty Start Date End Date Hannah Gallo MD PCP - General Family Medicine 01/23/23 documented as of this encounter
--- OUTSIDE RECORDS SUMMARY | 2025-05-25 08:11 | XMS_ITS | CCD ---
Author Organization [facility] Care Team Providers Care Rod Placer Name Role Phone Ronnie Kesha Unavailable Chepe Harriet Unavailable Jeremy Magallanes Unavailable SONA, DR JEREMY Jovel Admitting Unavailable MAGALLANES, DR JEREMY Jovel Attending Unavailable MAGALLANES, DR JEREMY Jovel Primary Care Unavailable MAGALLANES, DR JEREMY Jovel Consulting Unavailable TAVERASRUBI Consulting Unavailable OLEXA, KESHA Admitting Unavailable OLEXA, KESHA Attending Unavailable MAGALLANES, DR JEREMY Jovel Primary Care Unavailable [place], DR BARBIE Goldberg Consulting Unavailable OLEXA, KESHA Consulting Unavailable OLEXA, KESHA Admitting Unavailable OLEXA, KESHA Attending Unavailable MAGALLANES, DR JEREMY Jovel Primary Care Unavailable MAGALLANES, DR JEREMY Jovel Referring Unavailable ZIEBER, DR YEISON Drummond Consulting Unavailable OLEXA, EKSHA Consulting Unavailable BALL, DR VILLALOBOS Admitting Unavailable [...] Physician Jeremy Magallanes MD Primary Care Provider [phone] WILLIE, BARBIE Tellez Attending Unavailable POCOS, BARBIE Tellez Referring Unavailable POCOS, BARBIE Tellez Attending Unavailable MALATHI SANCHEZ Attending Unavailable JEREMY MAGALLANES Referring Unavailable POCDORON, JIN Attending Unavailable Jeremy Magallanes MD Unavailable [phone] PRIYANKA VAZ Attending Unavailable JEREMY MAGALLANES [...] Attending Provider Arnoldo Somers MD Attending Provider Giedalyson JACOB, Andrius Miranda Attending Unavailable Giedraitis , Andrius Vytautchela Attending Unavailable Giedraitis , Andrius Vytautas Attending Unavailable Giedraitis , Andrius Vytautchela Attending Unavailable Allergies Allergy Classification Reported Allergen(s) Allergy Type Date of Onset Reaction(s) Facility (20 sources) Ibuprofen Drug Allergy [facility] NPM Other (20 sources) olodaterol / tiotropium Drug Allergy shortness of breath [facility] NPM Other (20 sources) CT Scan dye Propensity to adverse reactions [facility] NPM Other (13 sources) Ibuprofen; Translations: [IBUPROFEN] Drug Allergy 08-19-18 80 hiv [facility] Repository (2 sources) Iodine (And Iodine Containting Drugs) Drug allergy (disorder) 09-07-19 16 [facility] (1 source) NSAIDs Drug allergy (disorder) [facility] (20 sources) fentaNYL Drug Allergy 12-05-19 24 Unknown, [facility] (12 sources) Ibuprofen Drug Allergy 01-15-20 15 Rash, [facility] (20 sources) Ofloxacin Drug Allergy 12-05-19 24 Unknown, [facility] (3 sources) zafirlukast Drug Allergy 01-15-20 15 Unknown [facility] Other (20 sources) Zafirlukast *ANTIASTHMATIC AND BRONCHODILATOR AGEN Propensity to adverse reactions Unknown [facility] Other (20 sources) Ibuprofen & Diet Manage Prod *ANALGESICS - ANTI-IN Propensity to adverse reactions Unknown [facility] Other (3 sources) Allergies Reconciled Propensity to adverse reactions Unknown [facility] Other (20 sources) Iodinated contrast media (substance) Drug allergy 06-03-20 19 Rash, [facility] Other (3 sources) patient allergy list reviewed by nurse or physicia Propensity to adverse reactions 10-05-19 16 Comment:Done [facility] Other (14 sources) olodaterol Drug Allergy 12-05-19 24 shortness of breath [facility] (14 sources) tiotropium Drug Allergy 12-05-19 24 shortness of breath [facility] (11 sources) Iodinated Contrast Media; Translations: [IODINATED CONTRAST MEDIA] Allergy to substance 06-03-20 19 [facility] (10 sources) Ibuprofen & Diet Manage Prod * Allergy to substance 12-04-19 [facility] Comment on above: Free Text Allergy: I buprofen & Diet Manage Prod *ANALGESICS - ANTI-IN (10 sources) Zafirlukast *ANTIASTHMATIC AND Allergy to substance 12-04-19 [facility] Comment on above: Free Text Allergy: Z afirlukast *ANTIASTHMATIC AND BRONCHODILATOR AGEN (3 sources) DULoxetine Drug Allergy 04-07-20 GI intolerance [facility] (2 sources) cefdinir Drug Allergy 01-22-20 Vomiting [facility] Comment on above: nausea, vomiting Medications [...] Sep, Active take 2 tablets by mo [facility] every four hours as needed [...] as needed Orally every 6 hrs Active [id number] 200 actuat albuterol 0.09 mg/actuat metered dose [...] Start: 11-23-2022 take 2 tablets by mo [facility] every twenty-four hours predniSONE [...] days May, Active Start: 2023 HYDROcodone-ac etaminophen ([place]) 10-325 MG tablet Start: 2023 take 1 [...] 30 mg oral tablet (5 sources) Uncompetitive G-zdstvu-J-aspartat e Receptor Antagonist, Sigma-1 Agonist Start: 05-26-2021 take 1 tablet by mouth every eight hours [place] DMT 30-30 MG 1 tablet Orally every [...] 8:39am Start: 02-20-2023 take 1 capsule by [facility] every twenty-four hours Cymbalta 60 [...] 10-05-2015 Episodic Other aftercare (1 source) Other alf (current) drug therapy; Translations: [OTH CORRECTION CURRENT DRUG THERAPY] Onset: 12-29-2021 Episodic Other [...] Lactate [Moles/Vol] 2.6 mmol/L Critically high 0.4-2.0 [facility] Comment on above: RESULTS CALLED TO GAURI SRINIVASAN RN at 0220 Basophils Auto (Bld) [#/Vol] on 12-22-2024 Basophils (Bld) [#/Vol] Automated basophil count 0.0-0.1 [facility] Basophils (Bld) [#/Vol] 0.0 10 3/uL 0.0-0.1 [facility] Basophils/100 WBC Auto (Bld) on 12-22-2024 Basophils/100 WBC (Bld) Automated basophil % 0.2-2.0 [facility] Basophils/100 WBC (Bld) 0.6 % 0.2-2.0 [facility] Basophils/100 WBC Manual cnt (Bld)on 12-22-2024 Basophils/100 WBC (Bld) Basophils/100 leukocytes in Blood by Manual count Low 0.2-2.0 [facility] Basophils/100 WBC (Bld) 0.0 % Low 0.2-2.0 [facility] Eosinophils/100 WBC Auto (Bl d)on 12-22-2024 Eosinophils/100 WBC (Bld) Automated eosinophil % 0.9-7.0 [facility] Eosinophils/100 WBC (Bld) 2.0 % 0.9-7.0 [facility] Eosinophils/100 WBC Manual c nt (Bld)on 12-22-2024 Eosinophils/100 WBC (Bld) Eosinophils/100 leukocytes in Blood by Manual count Low 0.9-7.0 [facility] Eosinophils/100 WBC (Bld) 0.0 % Low 0.9-7.0 [facility] Erythrocyte distribution wid th Auto (RBC) [Ratio]on 12-22-2024 Erythrocyte distribution width (RBC) [Ratio] 13.5 % 11.0-15.0 [facility] Estimated glomerular filtrat ion rate (GFR) non- Americanon 12-22-2024 GFR/1.73 sq M.predicted among non-blacks MDRD (S/P/Bld) [Vol rate/Area] Estimated glomerular filtration rate (GFR) non- Low >=60 mL/min/1.73m 2 [facility] GFR/1.73 sq M.predicted among non-blacks MDRD (S/P/Bld) [Vol rate/Area] 59 mL/min/{1.73_m2} Low >=60 mL/min/1.73m 2 [facility] Globulin Calc (S) [Mass/Vol] on 12-22-2024 Globulin (S) [Mass/Vol] Serum globulin measurement by calculation (mass/volume) [facility] Globulin (S) [Mass/Vol] 3.6 g/dL [facility] Glucose mean value [Mass/vol ume] in Blood Estimated from glycated hemoglobinon 12-22-2024 Average glucose Estimated from glycated hemoglobin (Bld) [Mass/Vol] Glucose mean value [Mass/volume] in Blood Estimated from glycated hemoglobin [facility] Average glucose Estimated from glycated hemoglobin (Bld) [Mass/Vol] 192 mg/dL [facility] Hematocrit Auto (Bld) [Volum e fraction]on 12-22-2024 Hematocrit (Bld) [Volume fraction] 56.3 % High 42.0-54.0 [facility] Hemoglobin A1c percentageon 12-22-2024 HbA1c (Bld) [Mass fraction] Hemoglobin A1c percentage High 4.5-6.2 [facility] Comment on above: ADA RECOMMENDED LIMI T 4.0 - 6.0ADA THERAPEUTIC TARGET < 7.0ACTION SUGGESTED> 7.0 HbA1c (Bld) [Mass fraction] 8.3 % High 4.5-6.2 [facility] Comment on above: ADA RECOMMENDED LIMI T 4.0 - 6.0ADA THERAPEUTIC TARGET < 7.0ACTION SUGGESTED> 7.0 Hemoglobin [Mass/volume] in Bloodon 12-22-2024 Hemoglobin (Bld) [Mass/Vol] 18.9 g/dL High 14.0-18.0 [facility] Laboratory - Chemistry and C hemistry - challengeon 12-22-2024 Albumin [Mass/Vol] 4.3 g/dL 3.4-5.[address] [facility] ALP [Catalytic activity/Vol] 121 U/L High 46-116 [facility] ALT [Catalytic activity/Vol] 46 U/L 16-63 [facility] AST [Catalytic activity/Vol] 17 U/L 15-37 [facility] Bilirubin [Mass/Vol] 0.4 mg/dL 0.2-1.0 [facility] Calcium [Mass/Vol] 9.7 mg/dL 8.5-10.[address] [facility] Chloride [Moles/Vol] 99 mmol/L 98-107 [facility] CO2 [Moles/Vol] 21.7 mmol/L 21.0-32.[address] [facility] Creatinine [Mass/Vol] 1.24 mg/dL 0.70-1.30 [facility] GFR/1.73 sq M.predicted MDRD (S/P/Bld) [Vol rate/Area] mL/min/{1.73_m2} >=60 mL/min/1.73m 2 [facility] Glucose [Mass/Vol] 278 mg/dL High 74-[address] [facility] Lactate [Moles/Vol] 2.3 mmol/L Critically high 0.4-2.0 [facility] Comment on above: RESULTS CALLED TO DIONE CABALLERO RN at 0009 Lipase [Catalytic activity/Vol] 31.0 U/L 16.0-77.0 [facility] Potassium [Moles/Vol] 4.6 mmol/L 3.5-5.1 [facility] Protein [Mass/Vol] 7.9 g/dL 6.4-8.[address] [facility] Sodium [Moles/Vol] 133 mmol/L Low 136-[address] [facility] Urea nitrogen [Mass/Vol] 15.0 mg/dL 7.0-18.0 [facility] Urea nitrogen/Creatinine [Mass ratio] 12.1 mg/mg [facility] TSH Qn 1.532 m[IU]/L 0.358-3.740 [facility] Laboratory - Hematology and Cell countson 12-22-2024 Lymphocytes/100 WBC (Bld) 1.0 % Low 20.5-60.0 [facility] Monocytes/100 WBC (Bld) 7.0 % 1.7-12.0 [facility] Immature granulocytes/100 WBC (Bld) 0.2 % 0.0-0.5 [facility] Leukocytes [#/volume] correc jean claude for nucleated erythrocytes in Blood by Automated counon 12-22-2024 WBC corrected for nucl RBC Auto (Bld) [#/Vol] 14.4 10 3/uL High 4.0-11.0 [facility] Lymphocytes Auto (Bld) [#/Vo l]on 12-22-2024 Lymphocytes (Bld) [#/Vol] Lymphocytes [#/volume] in Blood by Automated count 1.2-3.8 [facility] Lymphocytes (Bld) [#/Vol] 2.1 10 3/uL 1.2-3.8 [facility] Lymphocytes/100 WBC Auto (Bl d)on 12-22-2024 Lymphocytes/100 WBC (Bld) Lymphocytes/100 leukocytes in Blood by Automated count 20.5-60.0 [facility] Lymphocytes/100 WBC (Bld) 31.7 % 20.5-60.0 [facility] MCH Auto (RBC) [Entitic mass ]on 12-22-2024 MCH (RBC) [Entitic mass] 29.7 pg 25.9-34.0 [facility] MCHC Auto (RBC) [Mass/Vol]on 12-22-2024 MCHC (RBC) [Mass/Vol] 33.6 g/dL 29.9-35.2 [facility] MCV Auto (RBC) [Entitic vol] on 12-22-2024 MCV (RBC) [Entitic vol] 88.5 fL 80.0-94.0 [facility] Microalbumin [Mass/volume] i n Urineon 12-22-2024 Albumin DL <= 20 mg/L (U) [Mass/Vol] Microalbumin [Mass/volume] in Urine <=30.0 [facility] Albumin DL <= 20 mg/L (U) [Mass/Vol] 2.0 mg/dL <=30.0 [facility] Monocytes Auto (Bld) [#/Vol] on 12-22-2024 Monocytes (Bld) [#/Vol] Automated blood monocyte count 0.3-0.8 [facility] Monocytes (Bld) [#/Vol] 0.7 10 3/uL 0.3-0.8 [facility] Monocytes/100 WBC Auto (Bld) on 12-22-2024 Monocytes/100 WBC (Bld) Automated monocyte % 1.7-12.0 [facility] Monocytes/100 WBC (Bld) 10.7 % 1.7-12.0 [facility] Neutrophils Auto (Bld) [#/Vo l]on 12-22-2024 Neutrophils (Bld) [#/Vol] Neutrophils [#/volume] in Blood by Automated count 1.4-6.5 [facility] Neutrophils (Bld) [#/Vol] 3.6 10 3/uL 1.4-6.5 [facility] Neutrophils/100 WBC Auto (Bl d)on 12-22-2024 Neutrophils/100 WBC (Bld) Automated neutrophil % 43.0-75.0 [facility] Neutrophils/100 WBC (Bld) 54.8 % 43.0-75.0 [facility] No Panel Informationon 12-22 Absolute Basophils (Manual) 0.00 10 3/uL 0.00-0.10 [facility] Eosinophils # (Manual) 0.00 10 3/uL 0.00-0.70 [facility] Lymphocytes # (Manual) 0.14 10 3/uL Low 1.20-3.80 [facility] Monocytes # (Manual) 1.00 10 3/uL High 0.30-0.80 [facility] Segmented Neutrophils # (Manual) 13.24 10 3/uL High 1.4-6.5 [facility] Troponin I High Sensitivity <4.0 pg/mL Low 4.0-76.1 [facility] Comment on above: CUT-OFF POINTS HAVE [...] Eosinophils # (Auto) 0.1 10 3/uL 0.0-0.7 [facility] Immature Granulocyte # (Auto) 0.01 10 3/uL 0.00-0.03 [facility] Prostate Specific Antigen Screen 0.89 ng/mL <=4.00 [facility] Urine Random Creatinine 79.28 mg/dL 20.00-300.00 [facility] Platelet mean volume Auto (B ld) [Entitic vol]on 12-22-2024 Platelet mean volume (Bld) [Entitic vol] 9.4 fL Low 9.5-13.5 [facility] Platelets Auto (Bld) [#/Vol] on 12-22-2024 Platelets (Bld) [#/Vol] 319 10 3/uL 150-450 [facility] RBC Auto (Bld) [#/Vol]on RBC (Bld) [#/Vol] 6.36 10 6/uL High 4.70-6.10 [facility] Segmented neutrophils/100 WB C Manual cnt (Bld)on 12-22-2024 Segmented neutrophils/100 WBC (Bld) Manual blood segmented neutrophils/100 leukocytes High 43.0-75.0 [facility] Segmented neutrophils/100 WBC (Bld) 92.0 % High 43.0-75.0 [facility] Serum or plasma albumin/glob ulin mass ratioon 12-22-2024 Albumin/Globulin [Mass ratio] Serum or plasma albumin/globulin mass ratio [facility] Albumin/Globulin [Mass ratio] 1.2 {ratio} [facility] Serum or plasma anion gap de terminationon 12-22-2024 Anion gap [Moles/Vol] Serum or plasma anion gap determination [facility] Anion gap [Moles/Vol] 16.9 [facility]L [facility] microalbumin/creatinin e mass ratioon 12-22-2024 Albumin/Creatinine DL <= 20 mg/L (U) [Mass ratio] Urine microalbumin/creatin ine mass ratio 0.0-29.9 [facility] Comment on above: NO MICROALBUMINURIA 0-29 MG/GCLINICAL MICROALBUMINURIA 30-300 MG/GMACROALBUMINURIA >300 MG/G Albumin/Creatinine DL <= 20 mg/L (U) [Mass ratio] 25.2 mg/g 0.0-29.9 [facility] Comment on above: NO MICROALBUMINURIA 0-29 MG/GCLINICAL MICROALBUMINURIA 30-300 MG/GMACROALBUMINURIA >300 MG/G CHEMISTRYOrdered By: Sonia Brandt on 11-04-2024 HbA1c (Bld) [Mass fraction] 9.5 % High <=5.9% [facility] [id number] 11-04-2024 HbA1c (Bld) [Mass fraction] 9.5 % High <=5.9 [facility] Comment on above: Performed By: #### [id number] #### [facility] Laboratory [address] [place] [address] Basophils Auto (Bld) [#/Vol] on 10-11-2024 Basophils (Bld) [#/Vol] Automated basophil count 0.0-0.1 [facility] Basophils/100 WBC Auto (Bld) on 10-11-2024 Basophils/100 WBC (Bld) Automated basophil % 0.2-2.0 [facility] Eosinophils/100 WBC Auto (Bl d)on 10-11-2024 Eosinophils/100 WBC (Bld) Automated eosinophil % 0.9-7.0 [facility] Erythrocyte distribution wid th Auto (RBC) [Ratio]on 10-11-2024 Erythrocyte distribution width (RBC) [Ratio] Erythrocyte distribution width [Ratio] by Automated count 11.0-15.0 [facility] Estimated glomerular filtrat ion rate (GFR) non- Americanon 10-11-2024 GFR/1.73 sq M.predicted among non-blacks MDRD (S/P/Bld) [Vol rate/Area] Estimated glomerular filtration rate (GFR) non- >=60 mL/min/1.73m 2 [facility] Globulin Calc (S) [Mass/Vol] on 10-11-2024 Globulin (S) [Mass/Vol] Serum globulin measurement by calculation (mass/volume) [facility] Hematocrit Auto (Bld) [Volum e fraction]on 10-11-2024 Hematocrit (Bld) [Volume fraction] Hematocrit [Volume Fraction] of Blood by Automated count 42.0-54.0 [facility] Hemoglobin [Mass/volume] in Bloodon 10-11-2024 Hemoglobin (Bld) [Mass/Vol] Hemoglobin [Mass/volume] in Blood 14.0-18.0 [facility] Laboratory - Chemistry and C hemistry - challengeon 10-11-2024 Albumin [Mass/Vol] 3.5 g/dL 3.4-5.[address] [facility] ALP [Catalytic activity/Vol] 102 U/L 46-116 [facility] ALT [Catalytic activity/Vol] 39 U/L 16-63 [facility] AST [Catalytic activity/Vol] 13 U/L Low 15-37 [facility] Bilirubin [Mass/Vol] 0.2 mg/dL 0.2-1.0 [facility] Calcium [Mass/Vol] 9.1 mg/dL 8.5-10.[address] [facility] Chloride [Moles/Vol] 102 mmol/L 98-107 [facility] CO2 [Moles/Vol] 28.4 mmol/L 21.0-32.[address] [facility] Creatinine [Mass/Vol] 0.97 mg/dL 0.70-1.30 [facility] GFR/1.73 sq M.predicted MDRD (S/P/Bld) [Vol rate/Area] mL/min/{1.73_m2} >=60 mL/min/1.73m 2 [facility] Glucose [Mass/Vol] 317 mg/dL High 74-[address] [facility] Potassium [Moles/Vol] 4.3 mmol/L 3.5-5.1 [facility] Protein [Mass/Vol] 6.7 g/dL 6.4-8.[address] [facility] Sodium [Moles/Vol] 136 mmol/L 136-[address] [facility] Urea nitrogen [Mass/Vol] 14.0 mg/dL 7.0-18.0 [facility] Urea nitrogen/Creatinine [Mass ratio] 14.4 mg/mg [facility] Laboratory - Hematology and Cell countson 10-11-2024 Immature granulocytes/100 WBC (Bld) 0.2 % 0.0-0.5 [facility] Leukocytes [#/volume] correc jean claude for nucleated erythrocytes in Blood by Automated counon 10-11-2024 WBC corrected for nucl RBC Auto (Bld) [#/Vol] Leukocytes [#/volume] corrected for nucleated erythrocytes in Blood by Automated coun 4.0-11.0 [facility] Lymphocytes Auto (Bld) [#/Vo l]on 10-11-2024 Lymphocytes (Bld) [#/Vol] Lymphocytes [#/volume] in Blood by Automated count 1.2-3.8 [facility] Lymphocytes/100 WBC Auto (Bl d)on 10-11-2024 Lymphocytes/100 WBC (Bld) Lymphocytes/100 leukocytes in Blood by Automated count 20.5-60.0 [facility] MCH Auto (RBC) [Entitic mass ]on 10-11-2024 MCH (RBC) [Entitic mass] MCH [Entitic mass] by Automated count 25.9-34.0 [facility] MCHC Auto (RBC) [Mass/Vol]on 10-11-2024 MCHC (RBC) [Mass/Vol] MCHC [Mass/volume] by Automated count 29.9-35.2 [facility] MCV Auto (RBC) [Entitic vol] on 10-11-2024 MCV (RBC) [Entitic vol] MCV [Entitic volume] by Automated count 80.0-94.0 [facility] Monocytes Auto (Bld) [#/Vol] on 10-11-2024 Monocytes (Bld) [#/Vol] Automated blood monocyte count 0.3-0.8 [facility] Monocytes/100 WBC Auto (Bld) on 10-11-2024 Monocytes/100 WBC (Bld) Automated monocyte % 1.7-12.0 [facility] Neutrophils Auto (Bld) [#/Vo l]on 10-11-2024 Neutrophils (Bld) [#/Vol] Neutrophils [#/volume] in Blood by Automated count 1.4-6.5 [facility] Neutrophils/100 WBC Auto (Bl d)on 10-11-2024 Neutrophils/100 WBC (Bld) Automated neutrophil % 43.0-75.0 [facility] No Panel Informationon 10-11 Eosinophils # (Auto) 0.2 10 3/uL 0.0-0.7 [facility] Immature Granulocyte # (Auto) 0.02 10 3/uL 0.00-0.03 [facility] Platelet mean volume Auto (B ld) [Entitic vol]on 10-11-2024 Platelet mean volume (Bld) [Entitic vol] Platelet mean volume [Entitic volume] in Blood by Automated count Low 9.5-13.5 [facility] Platelets Auto (Bld) [#/Vol] on 10-11-2024 Platelets (Bld) [#/Vol] Platelets [#/volume] in Blood by Automated count 150-450 [facility] RBC Auto (Bld) [#/Vol]on RBC (Bld) [#/Vol] Erythrocytes [#/volume] in Blood by Automated count 4.70-6.10 [facility] Serum or plasma albumin/glob ulin mass ratioon 10-11-2024 Albumin/Globulin [Mass ratio] Serum or plasma albumin/globulin mass ratio [facility] Serum or plasma anion gap de terminationon 10-11-2024 Anion gap [Moles/Vol] Serum or plasma anion gap determination [facility] Estimated glomerular filtrat ion rate (GFR) non- Americanon 08-26-2024 GFR/1.73 sq M.predicted among non-blacks MDRD (S/P/Bld) [Vol rate/Area] Estimated glomerular filtration rate (GFR) non- >=60 mL/min/1.73m 2 [facility] Laboratory - Chemistry and C hemistry - challengeon 08-26-2024 Creatinine [Mass/Vol] 1.02 mg/dL 0.70-1.30 [facility] GFR/1.73 sq M.predicted MDRD (S/P/Bld) [Vol rate/Area] mL/min/{1.73_m2} >=60 mL/min/1.73m 2 [facility] EGDon 06-03-2024 [employer] [facility] No Panel InformationOrdered By: Rosalia Shea on 06-03-2024 [facility] No Panel InformationOrdered By: Bill Henry on 06-03-2024 Miscellaneous Pathology Test See comment [facility] Comment on above: See report. Scanned copy available in EMR. No Panel Informationon 06-03 Helicobacter pylori Urease Test Negative [facility] Pathology Request for Lab Co rpon 06-03-2024 Pathology Request for Lab Raymond Normal [facility] Comment on above: Order Comment: PATHO LOGY GI SPECIMEN Result Comment: See report. Scanned copy available in EMR. PERFORMED BY: [place] [address] PATHOLOGIST REPAIR SERVICE DISPATCHER JON PONCE M.D. Performed By: #### P ATH TO [facility] #### [address] [facility]-14-20[id number] NICHOLAS CRAIG ([id number]) 1960 M Date Time Provider Department 05/14/24 AMEYA MERAZ [id number] During your visit today, we recorded the following information about you: Keily Martines 05/14/2024 1:11 PM Signed Referral was sent from [facility] for new consult with Dr Meraz Please see below and advise Vivian Morley 05/15/2024 11:54 AM Addendum Consult from Dr. 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] Problem List As Of Date: 05/14/2024 (None) Encounter Status:Closed by VIVIAN MORLEY on 05/21/24 Normal [facility] Basophils Auto (Bld) [#/Vol] on 02-27-2024 Basophils (Bld) [#/Vol] 0.1 10 3/uL 0.0-0.1 [facility] Basophils/100 WBC Auto (Bld) on 02-27-2024 Basophils/100 WBC (Bld) 0.5 % 0.2-2.0 [facility] Eosinophils/100 WBC Auto (Bl d)on 02-27-2024 Eosinophils/100 WBC (Bld) 2.5 % 0.9-7.0 [facility] Erythrocyte distribution wid th Auto (RBC) [Ratio]on 02-27-2024 Erythrocyte distribution width (RBC) [Ratio] 13.5 % 11.0-15.0 [facility] Estimated glomerular filtrat ion rate (GFR) non- Americanon 02-27-2024 GFR/1.73 sq M.predicted among non-blacks MDRD (S/P/Bld) [Vol rate/Area] mL/min/{1.73_m2} >=60 [facility] Hematocrit Auto (Bld) [Volum e fraction]on 02-27-2024 Hematocrit (Bld) [Volume fraction] 47.1 % 42.0-54.0 [facility] Hemoglobin [Mass/volume] in Bloodon 02-27-2024 Hemoglobin (Bld) [Mass/Vol] 15.5 g/dL 14.0-18.0 [facility] Laboratory - Chemistry and C hemistry - challengeon 02-27-2024 Calcium [Mass/Vol] 8.9 mg/dL 8.5-10.[address] [facility] Chloride [Moles/Vol] 98 mmol/L 98-107 [facility] CO2 [Moles/Vol] 28.1 mmol/L 21.0-32.[address] [facility] Creatinine [Mass/Vol] 0.86 mg/dL 0.70-1.30 [facility] GFR/1.73 sq M.predicted MDRD (S/P/Bld) [Vol rate/Area] mL/min/{1.73_m2} >=60 [facility] Glucose [Mass/Vol] 237 mg/dL High 74-[address] [facility] Lactate [Moles/Vol] 1.3 mmol/L 0.4-2.0 [facility] Potassium [Moles/Vol] 4.4 mmol/L 3.5-5.1 [facility] Sodium [Moles/Vol] 130 mmol/L Low 136-[address] [facility] Urea nitrogen [Mass/Vol] 21.0 mg/dL High 7.0-18.0 [facility] Urea nitrogen/Creatinine [Mass ratio] 24.4 mg/mg [facility] Laboratory - Hematology and Cell countson 02-27-2024 Immature granulocytes/100 WBC (Bld) 0.3 % 0.0-0.5 [facility] Leukocytes [#/volume] correc jean claude for nucleated erythrocytes in Blood by Automated counon 02-27-2024 WBC corrected for nucl RBC Auto (Bld) [#/Vol] 9.3 10 3/uL 4.0-11.0 [facility] Lymphocytes Auto (Bld) [#/Vo l]on 02-27-2024 Lymphocytes (Bld) [#/Vol] 2.4 10 3/uL 1.2-3.8 [facility] Lymphocytes/100 WBC Auto (Bl d)on 02-27-2024 Lymphocytes/100 WBC (Bld) 25.5 % 20.5-60.0 [facility] MCH Auto (RBC) [Entitic mass ]on 02-27-2024 MCH (RBC) [Entitic mass] 29.1 pg 25.9-34.0 [facility] MCHC Auto (RBC) [Mass/Vol]on 02-27-2024 MCHC (RBC) [Mass/Vol] 32.9 g/dL 29.9-35.2 [facility] MCV Auto (RBC) [Entitic vol] on 02-27-2024 MCV (RBC) [Entitic vol] 88.5 fL 80.0-94.0 [facility] Monocytes Auto (Bld) [#/Vol] on 02-27-2024 Monocytes (Bld) [#/Vol] 1.1 10 3/uL High 0.3-0.8 [facility] Monocytes/100 WBC Auto (Bld) on 02-27-2024 Monocytes/100 WBC (Bld) 12.0 % 1.7-12.0 [facility] Neutrophils Auto (Bld) [#/Vo l]on 02-27-2024 Neutrophils (Bld) [#/Vol] 5.5 10 3/uL 1.4-6.5 [facility] Neutrophils/100 WBC Auto (Bl d)on 02-27-2024 Neutrophils/100 WBC (Bld) 59.2 % 43.0-75.0 [facility] No Panel Informationon 02-26 Eosinophils # (Auto) 0.2 10 3/uL 0.0-0.7 [facility] Immature Granulocyte # (Auto) 0.03 10 3/uL 0.00-0.03 [facility] Platelet mean volume Auto (B ld) [Entitic vol]on 02-27-2024 Platelet mean volume (Bld) [Entitic vol] 8.8 fL Low 9.5-13.5 [facility] Platelets Auto (Bld) [#/Vol] on 02-27-2024 Platelets (Bld) [#/Vol] 288 10 3/uL 150-450 [facility] RBC Auto (Bld) [#/Vol]on RBC (Bld) [#/Vol] 5.32 10 6/uL 4.70-6.10 [facility] Serum or plasma anion gap de terminationon 02-27-2024 Anion gap [Moles/Vol] 8.3 mmol/L [facility] Basophils Auto (Bld) [#/Vol] on 12-05-2023 Basophils (Bld) [#/Vol] 0.1 10 3/uL 0.0-0.1 [facility] Basophils/100 WBC Auto (Bld) on 12-05-2023 Basophils/100 WBC (Bld) 0.9 % 0.2-2.0 [facility] Eosinophils/100 WBC Auto (Bl d)on 12-05-2023 Eosinophils/100 WBC (Bld) 2.7 % 0.9-7.0 [facility] Erythrocyte distribution wid th Auto (RBC) [Ratio]on 12-05-2023 Erythrocyte distribution width (RBC) [Ratio] 13.1 % 11.0-15.0 [facility] Estimated glomerular filtrat ion rate (GFR) non- Americanon 12-05-2023 GFR/1.73 sq M.predicted among non-blacks MDRD (S/P/Bld) [Vol rate/Area] mL/min/{1.73_m2} >=60 [facility] Glucose mean value [Mass/vol ume] in Blood Estimated from glycated hemoglobinon 12-05-2023 Average glucose Estimated from glycated hemoglobin (Bld) [Mass/Vol] 171 mg/dL [facility] Hematocrit Auto (Bld) [Volum e fraction]on 12-05-2023 Hematocrit (Bld) [Volume fraction] 48.9 % 42.0-54.0 [facility] Hemoglobin [Mass/volume] in Bloodon 12-05-2023 Hemoglobin (Bld) [Mass/Vol] 16.0 g/dL 14.0-18.0 [facility] Laboratory - Chemistry and C hemistry - challengeon 12-05-2023 Calcium [Mass/Vol] 9.7 mg/dL 8.5-10.[address] [facility] Chloride [Moles/Vol] 102 mmol/L 98-107 [facility] CO2 [Moles/Vol] 27.6 mmol/L 21.0-32.[address] [facility] Creatinine [Mass/Vol] 1.01 mg/dL 0.70-1.30 [facility] GFR/1.73 sq M.predicted MDRD (S/P/Bld) [Vol rate/Area] mL/min/{1.73_m2} >=60 [facility] Glucose [Mass/Vol] 156 mg/dL High 74-[address] [facility] Potassium [Moles/Vol] 4.4 mmol/L 3.5-5.1 [facility] Sodium [Moles/Vol] 139 mmol/L 136-[address] [facility] Urea nitrogen [Mass/Vol] 13.0 mg/dL 7.0-18.0 [facility] Urea nitrogen/Creatinine [Mass ratio] 12.9 mg/mg [facility] Laboratory - Hematology and Cell countson 12-05-2023 ESR (Bld) [Velocity] 17 mm/h <=20 [facility] HbA1c (Bld) [Mass fraction] 7.6 % High 4.5-6.2 [facility] Comment on above: ADA RECOMMENDED LIMI T 4.0 - 6.0ADA THERAPEUTIC TARGET < 7.0ACTION SUGGESTED> 7.0 Immature granulocytes/100 WBC (Bld) 0.4 % 0.0-0.5 [facility] Leukocytes [#/volume] correc jean claude for nucleated erythrocytes in Blood by Automated counon 12-05-2023 WBC corrected for nucl RBC Auto (Bld) [#/Vol] 7.7 10 3/uL 4.0-11.0 [facility] Lymphocytes Auto (Bld) [#/Vo l]on 12-05-2023 Lymphocytes (Bld) [#/Vol] 2.4 10 3/uL 1.2-3.8 [facility] Lymphocytes/100 WBC Auto (Bl d)on 12-05-2023 Lymphocytes/100 WBC (Bld) 31.2 % 20.5-60.0 [facility] MCH Auto (RBC) [Entitic mass ]on 12-05-2023 MCH (RBC) [Entitic mass] 28.5 pg 25.9-34.0 [facility] MCHC Auto (RBC) [Mass/Vol]on 12-05-2023 MCHC (RBC) [Mass/Vol] 32.7 g/dL 29.9-35.2 [facility] MCV Auto (RBC) [Entitic vol] on 12-05-2023 MCV (RBC) [Entitic vol] 87.0 fL 80.0-94.0 [facility] Monocytes Auto (Bld) [#/Vol] on 12-05-2023 Monocytes (Bld) [#/Vol] 0.7 10 3/uL 0.3-0.8 [facility] Monocytes/100 WBC Auto (Bld) on 12-05-2023 Monocytes/100 WBC (Bld) 9.5 % 1.7-12.0 [facility] Neutrophils Auto (Bld) [#/Vo l]on 12-05-2023 Neutrophils (Bld) [#/Vol] 4.2 10 3/uL 1.4-6.5 [facility] Neutrophils/100 WBC Auto (Bl d)on 12-05-2023 Neutrophils/100 WBC (Bld) 55.3 % 43.0-75.0 [facility] No Panel Informationon 12-04 Eosinophils # (Auto) 0.2 10 3/uL 0.0-0.7 [facility] Immature Granulocyte # (Auto) 0.03 10 3/uL 0.00-0.03 [facility] Platelet mean volume Auto (B ld) [Entitic vol]on 12-05-2023 Platelet mean volume (Bld) [Entitic vol] 8.6 fL Low 9.5-13.5 [facility] Platelets Auto (Bld) [#/Vol] on 12-05-2023 Platelets (Bld) [#/Vol] 330 10 3/uL 150-450 [facility] RBC Auto (Bld) [#/Vol]on RBC (Bld) [#/Vol] 5.62 10 6/uL 4.70-6.10 [facility] Serum or plasma anion gap de terminationon 12-05-2023 Anion gap [Moles/Vol] 13.8 mmol/L [facility] Magnesiumon 07-02-2023 Magnesium [Mass/Vol] 2.2295103 mg/dL Normal 1.8- 2.4 mg/dL [facility] Other Magnesium see note [facility] Other XR CHEST 2 Von 11-24-2022 XR [...] TAVERAS Date: 2022-11-24 17:[address] [facility] [address] LUNG CANCER SCREENINGon 1 09-20-2021 [...] by: YEISON NAVAS Date: 2022-07-20 07:18 Normal [facility] CBC AUTO DIFFon 06-07-2022 BASO # 0.1 103/ul Normal 0.0-0.1 [facility] Comment on above: Performed By: #### C BC #### [facility] [address] [address] [address] Eran Chacon Basophils/100 WBC (Bld) 0.6 % Normal 0.2-2.0 [facility] Comment on above: Performed By: #### C BC #### [facility] [address] [address] [address] Eran Chacon EO # 0.3 103/ul Normal 0.0-0.7 [facility] Comment on above: Performed By: #### C BC #### [facility] [address] [place] [address] Dr. Eran Chacon Eosinophils/100 WBC (Bld) 3.3 % Normal 0.9-7.0 [facility] Comment on above: Performed By: #### C BC #### [facility] [address] [place] [address] Dr. Eran Chacon Erythrocyte distribution width (RBC) [Ratio] 12.9 % Normal 11.0-15.0 [facility] Comment on above: Performed By: #### C BC #### [facility] [address] [place] [address] Dr. Eran Chacon Hematocrit (Bld) [Volume fraction] 47.7 % Normal 42.0-54.0 [facility] Comment on above: Performed By: #### C BC #### [facility] [address] [place] [address] Dr. Eran Chacon Hemoglobin (Bld) [Mass/Vol] 15.9 g/dL Normal 14.0-18.0 [facility] Comment on above: Performed By: #### C BC #### [facility] [address] [place] [address] Dr. Eran Chacon IG # 0.02 10e3/ul Normal 0.00-0.03 [facility] Comment on above: Performed By: #### C BC #### [facility] [address] [place] [address] Dr. Eran Chacon IG % 0.2 % Normal 0.0-0.5 [facility] Comment on above: Performed By: #### C BC #### [facility] [address] [place] [address] Dr. Eran Chacon LYMPH # 3.4 103/ul Normal 1.2-3.8 [facility] Comment on above: Performed By: #### C BC #### [facility] [address] [place] [address] Dr. Eran Chacon Lymphocytes/100 WBC (Bld) 34.5 % Normal 20.5-60.0 [facility] Comment on above: Performed By: #### C BC #### [facility] [address] [place] [address] Dr. Eran Chacon MANUAL DIFF REQ NO Normal [facility] Comment on above: Performed By: #### C BC #### [facility] [address] [place] [address] Dr. Eran Chacon MCH (RBC) [Entitic mass] 29.6 pg Normal 25.9-34.0 [facility] Comment on above: Performed By: #### C BC #### [facility] [address] [place] [address] Dr. Eran Chacon MCHC (RBC) [Mass/Vol] 33.3 g/dL Normal 29.9-35.2 [facility] Comment on above: Performed By: #### C BC #### [facility] [address] [place] [address] Dr. Eran Chacon MCV (RBC) [Entitic vol] 88.8 fL Normal 80.0-94.0 [facility] Comment on above: Performed By: #### C BC #### [facility] [address] [place] [address] Dr. Eran Chacon MONO # 0.9 103/ul Critically high 0.3-0.[address] [facility] Comment on above: Performed By: #### C BC #### [facility] [address] [place] [address] Dr. Eran Chacon Monocytes/100 WBC (Bld) 9.3 % Normal 1.7-12.0 [facility] Comment on above: Performed By: #### C BC #### [facility] [address] [place] [address] Dr. Eran Chacon NEUT # 5.2 103/ul Normal 1.4-6.5 [facility] Comment on above: Performed By: #### C BC #### [facility] [address] [place] [address] Dr. Eran Chacon Neutrophils/100 WBC (Bld) 52.1 % Normal 43.0-75.0 [facility] Comment on above: Performed By: #### C BC #### [facility] [address] [place] [address] Dr. Eran Chacon Platelet mean volume (Bld) [Entitic vol] 8.8 fL Critically low 9.5-13.5 [facility] Comment on above: Performed By: #### C BC #### [facility] [address] [place] [address] Dr. Eran Chacon PLT 287 103/ul Normal 150-450 [facility] Comment on above: Performed By: #### C BC #### [facility] [address] [place] [address] Dr. Eran Chacon RBC 5.37 106/ul Normal 4.70-6.10 [facility] Comment on above: Performed By: #### C BC #### [facility] [address] [place] [address] Dr. Eran Chacon WBC 9.9 103/ul Normal 4.0-11.0 [facility] Comment on above: Performed By: #### C BC #### [facility] [address] [place] [address] Dr. Eran Chacon ER URINE PROFILEon 2 Bilirubin Ql (U) Negative Normal NEGATIVE [facility] Comment on above: Performed By: #### BISHNU BATESRO #### [facility] [address] [place] [address] Dr. Eran Chacon Clarity (U) CLEAR Normal CLEAR [facility] Comment on above: Performed By: #### Med SHER UMICRO #### [facility] [address] [place] [address] Dr. Eran Chacon Color (U) YELLOW Normal YELLOW [facility] Comment on above: Performed By: #### ERMELINDA BATESICRO #### [facility] [address] [address] [address] Eran GATES A micrscopic examination will be performed if indicated. Normal [facility] Comment on above: Performed By: #### ERMELINDA BATESICRO #### [facility] [address] [address] [address] Eran Chacon Glucose Ql (U) 500 mg/dl Abnormal NEGATIVE [facility] Comment on above: Performed By: #### Med SHER UMICRO #### [facility] [address] [address] [address] Eran Chacon Hemoglobin Ql (U) TRACE-INTACT Abnormal NEGATIVE [facility] Comment on above: Performed By: #### Med SHER UMICRO #### [facility] [address] [place] [address] Dr. Eran Chacon Ketones Ql (U) Negative Normal NEGATIVE [facility] Comment on above: Performed By: #### Med SHER UMICRO #### [facility] [address] [place] [address] Dr. Eran Chacon LEUKOCYTES Negative Normal NEGATIVE [facility] Comment on above: Performed By: #### Med SHER UMICRO #### [facility] [address] [place] [address] Dr. Eran Chacon Nitrite Ql (U) Negative Normal NEGATIVE [facility] Comment on above: Performed By: #### ERMELINDA BATESICRO #### [facility] [address] [place] [address] Dr. Eran Chacon pH (U) 6.0 [pH] Normal 5-9 [facility] Comment on above: Performed By: #### BISHNU BATESRO #### [facility] [address] [place] [address] Dr. Eran Chacon SPEC GRAVITY 1.025 Normal 1.005-<=1.02 5 [facility] Comment on above: Performed By: #### ERMELINDA BATESICRO #### [facility] [address] [place] [address] Dr. Eran Chacon UA PROTEIN Negative Normal NEGATIVE/ TRACE [facility] Comment on above: Performed By: #### HANNA BATES #### [facility] [address] [place] [address] Dr. Eran Chacon UR MICRO IND INDICATED Normal [facility] Comment on above: Performed By: #### HANNA BATES #### [facility] [address] [place] [address] Dr. Eran Chacon Urobilinogen Qn (U) 0.2 {Aureliano'U}/dL Normal 0.2 - 1. 0 [facility] Comment on above: Performed By: #### HANNA BATES #### [facility] [address] [place] [address] Dr. Eran Chacon PROF 14(COMP METB)on 022 Albumin [Mass/Vol] 4.0 g/dL Normal 3.4-5.0 [facility] Comment on above: Performed By: #### C MP #### [facility] [address] [place] [address] Dr. Eran Chacon Albumin/Globulin [Mass ratio] 1.2 {ratio} Normal [facility] Comment on above: Performed By: #### C MP #### [facility] [address] [place] [address] Dr. Eran Chacon ALP [Catalytic activity/Vol] 104 U/L Normal 46-116 [facility] Comment on above: Performed By: #### C MP #### [facility] [address] [place] [address] Dr. Eran Chacon ALT [Catalytic activity/Vol] 28 U/L Normal 16-63 [facility] Comment on above: Performed By: #### C MP #### [facility] [address] [place] [address] Dr. Eran Chacon Anion gap [Moles/Vol] 7.2 mmol/L Normal [facility] Comment on above: Performed By: #### C MP #### [facility] [address] [place] [address] Dr. Eran Chacon AST [Catalytic activity/Vol] 14 U/L Critically low 15-37 [facility] Comment on above: Performed By: #### C MP #### [facility] [address] [address] [address] Eran Chacon Bilirubin [Mass/Vol] 0.4 mg/dL Normal 0.2-1.0 [facility] Comment on above: Performed By: #### C MP #### [facility] [address] [address] [address] Eran Chacon Calcium [Mass/Vol] 9.0 mg/dL Normal 8.5-10.1 [facility] Comment on above: Performed By: #### C MP #### [facility] [address] [place] [address] Dr. Eran Chacon Chloride [Moles/Vol] 103 mmol/L Normal 98-107 [facility] Comment on above: Performed By: #### C MP #### [facility] [address] [place] [address] Dr. Eran Chacon CO2 [Moles/Vol] 30.0 mmol/L Normal 21.0-32.0 [facility] Comment on above: Performed By: #### C MP #### [facility] [address] [place] [address] Dr. Eran Chacon Creatinine [Mass/Vol] 0.85 mg/dL Normal 0.70-1.30 [facility] Comment on above: Performed By: #### C MP #### [facility] [address] [place] [address] Dr. Eran Chacon EGFR-AF JAPANESE >60 Normal >=60 [facility] Comment on above: Performed By: #### C MP #### [facility] [address] [place] [address] Dr. Eran Chacon EGFR-NON AF JAPANESE >60 Normal >=60 [facility] Comment on above: Performed By: #### C MP #### [facility] [address] [place] [address] Dr. Eran Chacon Globulin (S) [Mass/Vol] 3.3 g/dL Normal [facility] Comment on above: Performed By: #### C MP #### [facility] [address] [address] [address] Eran Chacon Glucose [Mass/Vol] 165 mg/dL Critically high 74-106 [facility] Comment on above: Performed By: #### C MP #### [facility] [address] [address] [address] Eran Chacon Potassium [Moles/Vol] 4.2 mmol/L Normal 3.5-5.1 [facility] Comment on above: Performed By: #### C MP #### [facility] [address] [address] [address] Eran Chacon Protein [Mass/Vol] 7.3 g/dL Normal 6.4-8.2 [facility] Comment on above: Performed By: #### C MP #### [facility] [address] [address] [address] Eran Chacon Sodium [Moles/Vol] 136 mmol/L Normal 136-145 [facility] Comment on above: Performed By: #### C MP #### [facility] [address] [address] [address] Eran Chacon Urea nitrogen [Mass/Vol] 10.0 mg/dL Normal 7.0-18.0 [facility] Comment on above: Performed By: #### C MP #### [facility] [address] [address] [address] Eran Chacon Urea nitrogen/Creatinine [Mass ratio] 11.8 mg/mg Normal [facility] Comment on above: Performed By: #### C MP #### [facility] [address] [address] [address] Eran Chacon URINE MICROSCOPIC ONLYon BACTERIA NONE SEEN Normal NONE SEEN [facility] Comment on above: Performed By: #### E HANNA SHER #### [facility] [address] [address] [address] Eran Chacon Bacteria identified Cx Nom (U) NOT INDICATED Normal [facility] Comment on above: Performed By: #### E RUR, UMICRO #### [facility] [address] [place] [address] Dr. Eran Chacon CAST NONE SEEN Normal NONE SEEN [facility] Comment on above: Performed By: #### Med SHER UMICRO #### [facility] [address] [place] [address] Dr. Eran Chacon Crystals LM Nom (Urine sed) NONE SEEN Normal NONE SEEN [facility] Comment on above: Performed By: #### Med SHER UMICRO #### [facility] [address] [place] [address] Dr. Eran Chacon Epithelial cells LM Ql (Urine sed) RARE Normal NONE SEEN /RARE [facility] Comment on above: Performed By: #### Med SHER UMICRO #### [facility] [address] [place] [address] Dr. Eran Chacon MUCOUS NONE SEEN Normal NONE SEEN [facility] Comment on above: Performed By: #### Med SHER UMICRO #### [facility] [address] [place] [address] Dr. Eran Chacon RBC 0-2 Normal 0-2 [facility] Comment on above: Performed By: #### Med SHER UMICRO #### [facility] [address] [place] [address] Dr. Eran Chacon WBC 2-5 Abnormal NONE SEEN [facility] Comment on above: Performed By: #### Med SHER UMICRO #### [facility] [address] [place] [address] Dr. Eran Chacon MRI SHOULDER LT WO [...] NAVAS Date: 2022-02-02 17:09 Normal [facility] Vital Signs Date Time Vital Sign Value Performing Clinician Facility 02-16-2025 14:47-0400 Body height 175.26 cm Jeremy Magallanes MD Work Phone: [facility] 02-16-2025 14:47-0400 Body mass index (BMI) [Ratio] 34 kg/m2 Jeremy Magallanes MD Work Phone: [facility] 02-16-2025 14:47-0400 Body weight 104.32 kg Jeremy Magallanes MD Work Phone: [facility] 02-16-2025 14:47-0400 Diastolic blood pressure 74 mm[Hg] Jeremy Magallanes MD Work Phone: [facility] 02-16-2025 14:47-0400 Heart rate 81 /min Jeremy Magallanes MD Work Phone: [facility] 02-16-2025 14:47-0400 Respiratory rate 12 /min Jeremy Magallanes MD Work Phone: [facility] 02-16-2025 14:47-0400 SaO2% (BldA) [Mass fraction] 97 % Jeremy Magallanes MD Work Phone: [facility] 02-16-2025 14:47-0400 Systolic blood pressure 120 mm[Hg] Jeremy Magallanes MD Work Phone: [facility] 01-21-2025 09:27-0400 Body height 175.26 cm [facility] 01-21-2025 09:27-0400 Body mass index (BMI) [Ratio] 34.1 kg/m2 [facility] 01-21-2025 09:27-0400 Body temperature 98.5 [degF] [facility] 01-21-2025 09:27-0400 Body weight 104.77 [facility] [place] 01-21-2025 09:27-0400 Diastolic blood pressure 82 mm[Hg] [facility] 01-21-2025 09:27-0400 Heart rate 72 /min [facility] [place] 01-21-2025 09:27-0400 SaO2% (BldA) [Mass fraction] 97 % [facility] 01-21-2025 09:27-0400 Systolic blood pressure 144 mm[Hg] [facility] 12-22-2024 08:21-0400 Body height 175.26 cm [facility] [place] 12-22-2024 08:21-0400 Body mass index (BMI) [Ratio] 33.6 kg/m2 [facility] 12-22-2024 08:21-0400 Body temperature 98.6 [degF] [facility] 12-22-2024 08:21-0400 Body weight 103.41 kg [facility] [place] 12-22-2024 08:21-0400 Diastolic blood pressure 81 mm[Hg] [facility] 12-22-2024 08:21-0400 Heart rate 71 /min [facility] [place] 12-22-2024 08:21-0400 SaO2% (BldA) [Mass fraction] 94 % [facility] 12-22-2024 08:21-0400 Systolic blood pressure 143 mm[Hg] [facility] 10-15-2024 08:56-0500 Body height 175.26 cm [facility] [place] 10-15-2024 08:56-0500 Body mass index (BMI) [Ratio] 34.5 kg/m2 [facility] 10-15-2024 08:56-0500 Body temperature 98 [degF] [facility] 10-15-2024 08:56-0500 Body weight 106.14 kg [facility] [place] 10-15-2024 08:56-0500 Diastolic blood pressure 81 mm[Hg] [facility] 10-15-2024 08:56-0500 Heart rate 76 /min [facility] [place] 10-15-2024 08:56-0500 Systolic blood pressure 136 mm[Hg] [facility] 07-23-2024 10:21-0500 Body height 175.26 cm [facility] [place] 07-23-2024 10:21-0500 Body mass index (BMI) [Ratio] 34.2 kg/m2 [facility] 07-23-2024 10:21-0500 Body weight 105.23 kg [facility] [place] 07-23-2024 10:21-0500 Diastolic blood pressure 75 mm[Hg] [facility] 07-23-2024 10:21-0500 Heart rate 73 /min [facility] [place] 07-23-2024 10:21-0500 SaO2% (BldA) [Mass fraction] 97 % [facility] 07-23-2024 10:21-0500 Systolic blood pressure 133 mm[Hg] [facility] 06-17-2024 09:13-0400 Body height 175.26 cm MD Jeremy Magallanes Work Phone: [facility] 06-17-2024 09:13-0400 Body mass index (BMI) [Ratio] 33.5 kg/m2 MD Jeremy Magallanes Work Phone: [facility] 06-17-2024 09:13-0400 Body temperature 98.1 [degF] MD Jeremy Magallanes Work Phone: [facility] 06-17-2024 09:13-0400 Body weight 102.96 kg MD Jeremy Magallanes Work Phone: [facility] 06-17-2024 09:13-0400 Diastolic blood pressure 83 mm[Hg] MD Jeremy Magallanes Work Phone: [facility] 06-17-2024 09:13-0400 Heart rate 79 /min MD Jeremy Magallanes Work Phone: [facility] 06-17-2024 09:13-0400 Systolic blood pressure 149 mm[Hg] MD Jeremy Magallanes Work Phone: [facility] 05-27-2024 14:56-0400 Body height 175.3 cm [employer] CUSTOMER SERVICE OPERATOR-ACTUARY MANAGER Work Phone: [facility] 05-27-2024 14:56-0400 Body mass index (BMI) [Ratio] 33.97 kg/m2 [employer] CUSTOMER SERVICE OPERATOR-ACTUARY MANAGER Work [facility]: [facility] 05-27-2024 14:56-0400 Body weight 104.33 kg [employer] CUSTOMER SERVICE OPERATOR-ACTUARY MANAGER Work Phone: [facility] 04-07-2024 10:04-0400 Body height 180.3 cm Malathi Sanchez MD Work Phone: [facility] 04-07-2024 10:04-0400 Body mass index (BMI) [Ratio] 32.78 kg/m2 Malathi Sanchez MD Work Phone: [facility] 04-07-2024 10:04-0400 Body weight 106.59 kg Malathi Sanchez MD Work Phone: [facility] 04-07-2024 10:04-0400 Diastolic blood pressure 88 mm[Hg] Malathi Sanchez MD Work Phone: [facility] 04-07-2024 10:04-0400 Systolic blood pressure 184 mm[Hg] Malathi Sanchez MD Work Phone: [facility] 03-18-2024 08:46-0400 Body height 175.26 cm [facility] [place] 03-18-2024 08:46-0400 Body mass index (BMI) [Ratio] 34.4 kg/m2 [facility] 03-18-2024 08:46-0400 Body weight 105.68 kg [facility] [place] 03-18-2024 08:46-0400 Diastolic blood pressure 80 mm[Hg] [facility] 03-18-2024 08:46-0400 Heart rate 72 /min [facility] [place] 03-18-2024 08:46-0400 Systolic blood pressure 130 mm[Hg] [facility] 03-03-2024 11:54-0400 Body height 175.26 cm [facility] [place] 03-03-2024 11:54-0400 Body mass index (BMI) [Ratio] 34.7 kg/m2 [facility] 03-03-2024 11:54-0400 Body weight 106.59 kg [facility] [place] 03-03-2024 11:54-0400 Diastolic blood pressure 81 mm[Hg] [facility] 03-03-2024 11:54-0400 Heart rate 69 /min [facility] [place] 03-03-2024 11:54-0400 Systolic blood pressure 129 mm[Hg] [facility] 12-17-2023 08:54-0400 Body height 175.26 cm [facility] [place] 12-17-2023 08:54-0400 Body mass index (BMI) [Ratio] 35.2 kg/m2 [facility] 12-17-2023 08:54-0400 Body weight 108.4 kg [facility] [place] 12-17-2023 08:54-0400 Diastolic blood pressure 76 mm[Hg] [facility] 12-17-2023 08:54-0400 Heart rate 76 /min [facility] [place] 12-17-2023 08:54-0400 Systolic blood pressure 154 mm[Hg] [facility] 12-05-2023 08:52-0400 Body height 175.26 cm [facility] [place] 12-05-2023 08:52-0400 Body mass index (BMI) [Ratio] 35 kg/m2 [facility] 12-05-2023 08:52-0400 Body weight 107.67 kg [facility] [place] 12-05-2023 08:52-0400 Diastolic blood pressure 78 mm[Hg] [facility] 12-05-2023 08:52-0400 Heart rate 69 /min [facility] [place] 12-05-2023 08:52-0400 Systolic blood pressure 147 mm[Hg] [facility] 09-13-2023 13:30-0500 Body height 175.26 cm Jeremy Magallanes Other [facility] 09-13-2023 13:30-0500 Body mass index (BMI) [Ratio] 33.22 kg/m2 Jeremy Magallanes Other [facility] Other 09-13-2023 13:30-0500 Body temperature 98.4 [degF] Jeremy Magallanes Other [facility] Other 09-13-2023 13:30-0500 Body weight 102.06 kg Jeremy Magallanes Other [facility] Other 09-13-2023 13:30-0500 Body weight 102.05 kg [facility] [place] 09-13-2023 13:30-0500 Diastolic blood pressure 80 mm[Hg] Jeremy Magallanes Other [facility] 09-13-2023 13:30-0500 SaO2% (BldA) [Mass fraction] 93 % Jeremy Magallanes Other [employer] Other 09-13-2023 13:30-0500 Systolic blood pressure 118 mm[Hg] Jeremy Magallanes Other [facility] 08-13-2023 10:30-0500 Body height 175.26 cm Jeremy Magallanes Other [facility] Other 08-13-2023 10:30-0500 Body mass index (BMI) [Ratio] 33.9 kg/m2 Jeremy Magallanes Other [facility] Other 08-13-2023 10:30-0500 Body weight 104.15 kg Jeremy Magallanes Other [facility] Other 08-13-2023 10:30-0500 Diastolic blood pressure 78 mm[Hg] Jeremy Magallanes Other [facility] Other 08-13-2023 10:30-0500 Systolic blood pressure 124 mm[Hg] Jeremy Magallanes Other [facility] Other 06-25-2023 08:45-0500 Body height 175.26 cm Jeremy Magallanes Other [facility] Other 06-25-2023 08:45-0500 Body mass index (BMI) [Ratio] 33.37 kg/m2 Jeremy Magallanes Other [facility] Other 06-25-2023 08:45-0500 Body temperature 96.5 [degF] Jeremy Magallanes Other [facility] Other 06-25-2023 08:45-0500 Body weight 102.51 kg Jeremy Magallanes Other [facility] Other 06-25-2023 08:45-0500 Diastolic blood pressure 85 mm[Hg] Jeremy Magallanes Other [facility] Other 06-25-2023 08:45-0500 Systolic blood pressure 149 mm[Hg] Jeremy Magallanes Other [facility] Other 05-28-2023 10:45-0400 Body height 175.26 cm Jeremy Magallanes Other [facility] Other 05-28-2023 10:45-0400 Body mass index (BMI) [Ratio] 33.52 kg/m2 Jereym Magallanes Other [facility] Other 05-28-2023 10:45-0400 Body weight 102.97 kg Jeremy Magallanes Other [facility] Other 05-28-2023 10:45-0400 Diastolic blood pressure 82 mm[Hg] Jeremy Magallanes Other [facility] Other 05-28-2023 10:45-0400 Systolic blood pressure 147 mm[Hg] Jeremy Magallanes Other [facility] Other 2023 08:45-0400 Body height 175.26 cm Jeremy Magallanes Other [facility] Other 2023 08:45-0400 Body mass index (BMI) [Ratio] 33.52 kg/m2 Jeremy Magallanes Other [facility] Other 2023 08:45-0400 Body weight 102.97 kg Jeremy Magallanes Other [facility] Other 2023 08:45-0400 Diastolic blood pressure 85 mm[Hg] Jeremy Magallanes Other [facility] Other 2023 08:45-0400 Systolic blood pressure 156 mm[Hg] Jeremy Magallanes Other [facility] Other 04-30-2023 09:45-0400 Body height 175.26 cm Jeremy Magallanes Other [facility] Other 04-30-2023 09:45-0400 Body mass index (BMI) [Ratio] 34.32 kg/m2 Jeremy Magallanes Other [facility] Other 04-30-2023 09:45-0400 Body temperature 96.2 [degF] Jeremy Magallanes Other [facility] Other 04-30-2023 09:45-0400 Body weight 105.42 kg Jeremy Magallanes Other [facility] Other 04-30-2023 09:45-0400 Diastolic blood pressure 78 mm[Hg] Jeremy Magallanes Other [facility] Other 04-30-2023 09:45-0400 Respiratory rate 16 /min Jeremy Magallanes Other [facility] Other 04-30-2023 09:45-0400 Systolic blood pressure 146 mm[Hg] Jeremy Magallanes Other [facility] Other 02-20-2023 09:15-0400 Body height 175.26 cm Jeremy Magallanes Other [facility] Other 02-20-2023 09:15-0400 Body mass index (BMI) [Ratio] 33.46 kg/m2 Jeremy Magallanes Other [facility] Other 02-20-2023 09:15-0400 Body weight 102.79 kg Jeremy Magallanes Other [facility] Other 02-20-2023 09:15-0400 Diastolic blood pressure 77 mm[Hg] Jeremy Magallanes Other [facility] Other 02-20-2023 09:15-0400 Systolic blood pressure 131 mm[Hg] Jeremy Magallanes Other [facility] Other 01-17-2023 08:45-0400 Body height 175.26 cm Jeremy Magallanes Other [facility] Other 01-17-2023 08:45-0400 Body mass index (BMI) [Ratio] 33.37 kg/m2 Jeremy Magallanes Other [facility] Other 01-17-2023 08:45-0400 Body weight 102.51 kg Jeremy Magallanes Other [facility] Other 01-17-2023 08:45-0400 Diastolic blood pressure 79 mm[Hg] Jeremy Magallanes Other [facility] Other 01-17-2023 08:45-0400 Systolic blood pressure 128 mm[Hg] Jeremy Magallanes Other [facility] Other 11-23-2022 09:30-0400 Body height 175.26 cm Jeremy Magallanes Other [facility] Other 11-23-2022 09:30-0400 Body mass index (BMI) [Ratio] 33.96 kg/m2 Jeremy Magallanes Other [facility] Other 11-23-2022 09:30-0400 Body weight 104.33 kg Jeremy Magallanes Other [facility] Other 11-23-2022 09:30-0400 Diastolic blood pressure 72 mm[Hg] Jeremy Magallanes Other [facility] Other 11-23-2022 09:30-0400 Systolic blood pressure 122 mm[Hg] Jeremy Magallanes Other [facility] Other 09-04-2022 11:30-0500 Body height 175.26 cm Jeremy Magallanes Other [facility] Other 09-04-2022 11:30-0500 Body mass index (BMI) [Ratio] 33.52 kg/m2 Jeremy Magallanes Other [facility] Other 09-04-2022 11:30-0500 Body weight 102.97 kg Jeremy Magallanes Other [facility] Other 09-04-2022 11:30-0500 Diastolic blood pressure 80 mm[Hg] Jeremy Magallanes Other [facility] Other 09-04-2022 11:30-0500 SaO2% (BldA) [Mass fraction] 95 % Jeremy Magallanes Other [facility] Other 09-04-2022 11:30-0500 Systolic blood pressure 122 mm[Hg] Jeremy Magallanes Other [facility] Other 02-06-2022 12:45-0400 Body height 175.26 cm Kesha Olexa Other [facility] Other 02-06-2022 12:45-0400 Body mass index (BMI) [Ratio] 31.01 kg/m2 Kesha Olexa Other [facility] Other 02-06-2022 12:45-0400 Body weight 95.26 kg Kesha Olexa Other [facility] Other 05-26-2021 13:15-0400 Body height 175.26 cm Harriet Mo Other [facility] Other 05-26-2021 13:15-0400 Body mass index (BMI) [Ratio] 31.01 kg/m2 Harriet Elizabethnty Other [facility] Other 05-26-2021 13:15-0400 Body temperature 98.3 [degF] Harriet Elizabethnty Other [facility] Other 05-26-2021 13:15-0400 Body weight 95.26 kg Harriet Ginty Other [facility] Other 05-26-2021 13:15-0400 SaO2% (BldA) [Mass fraction] 96 % Harriet Elizabethnty Other [facility] Other Encounters Encounter Date Encounter Type Care Provider Facility Start: 04-26-2025 End: 04-26-2025 ambulatory Zacarias Pike MD Facility:[facility] Start: 04-05-2025 End: 04-05-2025 ambulatory Zacarias Pike MD Facility:[facility] Start: 02-16-2025 End: 02-16-2025 ambulatory Jeremy Magallanes MD Work Phone: [facility] Work Phone: Start: 02-16-2025 End: 02-16-2025 Patient encounter procedure Jeremy Magallanes MD -[facility] Work Phone: Start: 01-21-2025 End: 01-21-2025 ambulatory [facility] Work Phone: Start: 01-21-2025 End: 01-21-2025 Patient encounter procedure [facility] Work Phone: Start: 12-23-2024 Non-patient / Non-visit [facility] [employer] Work Phone: Start: 12-22-2024 End: 12-22-2024 ambulatory [facility] Work Phone: Start: 12-22-2024 End: 12-22-2024 Patient encounter procedure [facility] Work Phone: Start: 11-23-2024 End: 11-23-2024 ambulatory Zacarias Pike MD Facility:[facility] Start: 11-04-2024 End: 11-05-2024 ambulatory Ligia Flakita CHIKIS Facility[place] Start: 11-04-2024 End: 11-05-2024 Patient encounter procedure Ligia Flakita CHIKIS [facility] Start: 11-04-2024 End: 11-05-2024 ambulatory Ligia T CHIKIS Facility:[facility] Start: 10-15-2024 End: 10-15-2024 ambulatory [facility] Work Phone: Start: 10-15-2024 End: 10-15-2024 Patient encounter procedure [facility] Work Phone: Start: 10-12-2024 Non-patient / Non-visit [facility] Work Phone: Start: 10-11-2024 Non-patient / Non-visit [facility] Work Phone: Start: 08-26-2024 Non-patient / Non-visit [facility] Work Phone: Start: 08-17-2024 End: 08-17-2024 ambulatory Zacarias Pike MD Facility:[facility] Start: 07-23-2024 End: 07-23-2024 Patient encounter procedure [facility] Work Phone: Start: 07-21-2024 Non-patient / Non-visit [facility] Work Phone: Start: 07-20-2024 Non-patient / Non-visit [facility] Work Phone: Start: 06-17-2024 End: 06-17-2024 ambulatory MD Jeremy Magallanes Work Phone: [facility] Work Phone: Start: 06-17-2024 End: 06-17-2024 Patient encounter procedure MD Jeremy Magallanes Work Phone: [facility] Work Phone: Start: 06-12-2024 End: 06-12-2024 Orders Only Not In System Ref Prov [facility] Start: 06-10-2024 End: 06-10-2024 Orders Only [facility] Comment on above: Dysphagia, unspecifi ed type; Black stools Start: 06-03-2024 End: 06-03-2024 ambulatory MD Jeremy Magallanes Work Phone: [facility] Work Phone: Start: 06-03-2024 End: 06-03-2024 Departed Referred MD Jeremy Magallanes Work Phone: [facility] Start: 06-03-2024 Non-patient / Non-visit MD Angelina Magallanes Work Phone: [facility] Work Phone: Start: 05-27-2024 End: 05-27-2024 Office outpatient new 30 minutes Priyanka Vaz CUSTOMER SERVICE OPERATOR-ACTUARY MANAGER Work Phone: [facility] Comment on above: Dysphagia, unspecifi ed type (Primary Dx); Black stools; Gastroesophageal reflux disease, unspecified whether esophagitis present; Abnormal esophagram Start: 05-27-2024 End: 05-27-2024 ambulatory PRIYANKAETHAN VAZ [facility] Start: 05-14-2024 End: 05-21-2024 Telephone encounter Ameya [...] Not Available Start: 03-18-2024 End: 03-18-2024 ambulatory [facility] Work Phone: Start: 03-18-2024 End: 03-18-2024 Patient encounter procedure [facility] Work Phone: Start: 03-03-2024 End: 03-03-2024 ambulatory [facility] Work Phone: Start: 03-03-2024 End: 03-03-2024 Patient encounter procedure [facility] Work Phone: Start: 02-27-2024 Non-patient / Non-visit [facility] Work Phone: Start: 12-17-2023 End: 12-17-2023 ambulatory [facility] Work Phone: Start: 12-17-2023 End: 12-17-2023 Patient encounter procedure [facility] Work Phone: Start: 12-05-2023 End: 12-05-2023 ambulatory [facility] Work Phone: Start: 12-05-2023 End: 12-05-2023 Patient encounter procedure [facility] Work Phone: Start: 10-23-2023 Non-patient / Non-visit [facility] Work Phone: Start: 10-08-2023 Non-patient / Non-visit [facility] Work Phone: Start: 10-07-2023 End: 10-07-2023 ambulatory BARBIE Tellez [facility] Not Available Start: 09-18-2023 End: 09-18-2023 ambulatory Jeremy Sona Other [facility] Other Start: 09-18-2023 Telephone encounter Jeremy Sona [facility] Start: 09-13-2023 End: 09-13-2023 ambulatory Jeremy Sona Other [facility] Other Start: 09-13-2023 Office outpatient vi sit 15 minutes Jeremy Sona [facility] Start: 09-13-2023 End: 09-13-2023 Patient encounter procedure [facility] Start: 09-11-2023 Telephone encounter Argentina coleman PT [...] 09-10-2023 End: 09-10-2023 ambulatory Jeremy Magallanes Other [facility] Other Start: 09-10-2023 Telephone encounter Jeremy Magallanes [facility] Start: 09-06-2023 End: 09-06-2023 ambulatory Jeremy Magallanes Other [facility] Other Start: 09-06-2023 Telephone encounter Jeremy Magallanes [facility] Start: 09-02-2023 End: 09-02-2023 ambulatory JIN POCOS Not Available Start: 08-20-2023 End: 08-20-2023 ambulatory Jeremy Magallanes Other [facility] Other Start: 08-20-2023 Telephone encounter Jeremy Magallanes [facility] Start: 08-13-2023 End: 08-13-2023 ambulatory Jereym Magallanes Other [facility] Other Start: 08-13-2023 Office outpatient vi sit 25 minutes Jeremy Magallanes [facility] Start: 08-13-2023 Telephone encounter Jeremy Magallanes [facility] Start: 08-06-2023 End: 08-06-2023 ambulatory Jeremy Magallanes Other [facility] Other Start: 08-06-2023 Telephone encounter Jeremy Magallanes [facility] Start: 07-29-2023 End: 07-29-2023 ambulatory JIN POCOS Not Available Start: 07-22-2023 End: 07-22-2023 ambulatory Jeremy Magallanes Other [facility] Other Start: 07-22-2023 Telephone encounter Jeremy Magallanes [facility] Start: 07-19-2023 End: 07-19-2023 ambulatory Jeremy Magallanes Other [facility] Other Start: 07-19-2023 Telephone encounter Jeremy Magallanes [facility] Start: 07-18-2023 End: 07-18-2023 ambulatory Jeremy Magallanes Other [facility] Other Start: 07-18-2023 Telephone encounter Jeremy Magallanes [facility] Start: 07-02-2023 End: 07-02-2023 ambulatory Jeremy Magallanes Other [facility] Other Start: 07-02-2023 Office outpatient vi sit 15 minutes Jeremy Magallanes [facility] Start: 07-02-2023 Telephone encounter Jeremy Magallanes [facility] Start: 06-25-2023 End: 06-25-2023 ambulatory Jeremy Magallanes Other [facility] Other Start: 06-25-2023 Office outpatient vi sit 15 minutes Jeremy Magallanes [facility] Start: 06-21-2023 End: 06-21-2023 ambulatory Jeremy Magallanes Other [facility] Other Start: 06-21-2023 Encounter by compute r link Jeremy Magallanes [facility] Start: 06-20-2023 End: 06-20-2023 ambulatory Jeremy Magallanes Other [facility] Other Start: 06-20-2023 Telephone encounter Jeremy Magallanes [facility] Start: 06-17-2023 End: 06-17-2023 ambulatory Jeremy Sona Other [facility] Other Start: 06-17-2023 Telephone encounter Jeremy Magallanes [facility] Start: 06-10-2023 End: 06-10-2023 ambulatory Jeremy Magallanes Other [facility] Other Start: 06-10-2023 Telephone encounter Jeremy Magallanes [facility] Start: 06-03-2023 End: 06-03-2023 ambulatory Jeremy Magallanes Other [facility] Other Start: 06-03-2023 Telephone encounter Jeremy Magallanes [facility] Start: 05-30-2023 End: 05-30-2023 Patient encounter procedure Barbie Jesus [facility] Start: 05-28-2023 End: 05-28-2023 ambulatory Jeremy Magallanes Other [facility] Other Start: 05-28-2023 Office outpatient vi sit 15 minutes Jeremy Sona [facility] Start: 2023 End: 2023 ambulatory Jeremy Magallanes Other [facility] Other Start: 2023 Office outpatient vi sit 15 minutes Jeremy Sona [facility] Start: 05-16-2023 End: 05-16-2023 ambulatory Jeremy Sona Other [facility] Other Start: 05-16-2023 Telephone encounter Jeremy Magallanes [facility] Start: 04-30-2023 End: 04-30-2023 ambulatory Jeremy Sona Other [facility] Other Start: 04-30-2023 Office outpatient vi sit 15 minutes Jeremy Sona [facility] Start: 04-26-2023 End: 04-26-2023 ambulatory Jeremy Sona Other [facility] Other Start: 04-26-2023 Telephone encounter Jeremy Magallanes [facility] Start: 04-23-2023 End: 04-23-2023 ambulatory Jeremy Magallanes Other [facility] Other Start: 04-23-2023 Telephone encounter Jeremy Magallanes [facility] Start: 03-25-2023 End: 03-25-2023 ambulatory Jeremy Magallanes Other [facility] Other Start: 03-25-2023 Telephone encounter Jeremy Sona [facility] Start: 03-06-2023 End: 03-06-2023 ambulatory Jeremy Sona Other [facility] Other Start: 03-06-2023 Telephone encounter Jeremy Sona [facility] Start: 02-20-2023 End: 02-20-2023 ambulatory Jeremy Sona Other [facility] Other Start: 02-20-2023 Office outpatient vi sit 25 minutes Jeremy Sona [facility] Start: 02-05-2023 End: 02-05-2023 ambulatory Jeremy Sona Other [facility] Other Start: 02-05-2023 Telephone encounter Jeremy Sona [facility] Start: 01-21-2023 End: 01-21-2023 ambulatory Jeremy Sona Other [facility] Other Start: 01-21-2023 Telephone encounter Jeremy Sona [facility] Start: 01-17-2023 End: 01-17-2023 ambulatory Jeremy Sona Other [facility] Other Start: 01-17-2023 Office outpatient vi sit 15 minutes Jeremy Sona [facility] Start: 12-24-2022 End: 12-24-2022 ambulatory Jeremy Sona Other [facility] Other Start: 12-24-2022 Telephone encounter [facility] [facility] Start: 12-03-2022 End: 12-03-2022 ambulatory Jeremy Sona Other [facility] Other Start: 12-03-2022 Telephone encounter Jeremy Sona [facility] Start: 11-27-2022 End: 11-27-2022 ambulatory Jeremy Magallanes Other [facility] Other Start: 11-27-2022 Telephone encounter Jeremy Magallanes [facility] Start: 11-26-2022 End: 11-26-2022 ambulatory Jeremy Magallanes Other [facility] Other Start: 11-26-2022 Telephone encounter Jeremy Magallanes [facility] Start: 11-24-2022 End: 11-25-[address] JEREMY MAGALLANES Facility:H1 Start: 11-23-2022 End: 11-23-2022 ambulatory Jeremy Magallanes Other [facility] Other Start: 11-23-2022 Office outpatient vi sit 15 minutes Jeremy Magallanes [facility] Start: 11-05-2022 End: 11-05-2022 ambulatory Jeremy Magallanes Other [facility] Other Start: 11-05-2022 Telephone encounter Jeremy Magallanes [facility] Start: 10-03-2022 End: 10-03-2022 ambulatory Jeremy Magallanes Other [facility] Other Start: 10-03-2022 Telephone encounter Jeremy Magallanes [facility] Start: 09-04-2022 End: 09-04-2022 ambulatory Jeremy Maglalanes Other [facility] Other Start: 09-04-2022 Office outpatient vi sit 25 minutes Jeremy Magallanes [facility] Start: 07-26-[address] JEREMY MAGALLANES Facil ity:H1 Start: 07-19-2022 End: 07-20-[address] WILFREDO ENGLE Facility:[facility]1 Start: 06-07-2022 End: 06-07-[address] JEREMY MAGALLANES Facility:[facility]1 Start: 03-15-2022 ambulatory KESHA TRUJILLO Facility:H 1 Start: 02-06-2022 End: 02-06-2022 ambulatory Kesha Trujillo Other [facility] Other Start: 02-06-2022 Office outpatient vi sit 25 minutes Kesha Trujillo [facility] Start: 02-02-2022 End: 02-03-2022 ambulatory KESHA TRUJILLO Facility:[facility]1 Start: 12-28-2021 End: 12-28-[address] JEREMY MAGALLANES Facility:[facility]1 Start: 12-12-2021 End: 12-13-2021 ambulatory KESHA TRUJILLO [facility] Other Start: 12-12-2021 Office outpatient ne w 30 minutes Kesha Trujillo [facility] Start: 05-26-2021 Office outpatient vi sit 15 minutes Harriet Ginty [facility] Procedures Date Procedure Procedure Detail Performing Clinician Start: 06-03-2024 Esophagogastroduodenoscopy Priyanka vázquez CUSTOMER SERVICE OPERATOR-ACTUARY MANAGER Work Phone: Start: 06-03-2024 Level i [...] Td Vaccines (3 - Td or Tdap) [facility] Start: 05-27-2025 Adult BMI Screening [facility] Start: 05-27-2025 Tobacco Screening Tobacco Screening [facility] Start: 10-15-2024 Patient referral [facility] Work Phone: Start: 04-19-2024 Influenza vaccination [facility]ine [facility] Start: 04-07-2024 End: 04-07-2024 Patient encounter procedure 04/07/2024 10:30 AM EDT Office Visit [facility] [address] [place] [address] Malathi Sanchez MD [address] [facility] [address] [place] [address] Arrived [facility] Comment on above: Arrived Start: 03-18-2024 Patient referral [facility] Work Phone: Start: 10-07-2023 End: 10-07-2023 Patient encounter procedure 10/07/2023 8:00 AM EST Office Visit [facility] [address] [place] [address] Barbie Jesus DO [address] [place] [address] [facility] Start: 2010 Administration of varicella zoster vaccine Zoster (Shingles) Vaccine (1 of 2) [facility] Start: 1978 Adult BMI Follow Up Plan Adult BMI Follow Up Plan [facility] Start: 1972 Depression Screening Depression Screening [facility] Start: 1960 Tobacco Counseling Tobacco Counseling [facility] Comprehensive metabo lic 2000 panel - Serum or Plasma [facility] CT [facility] Neck W [facility] End: 05-27-2025 Esophagogastroduodenoscopy EGD GI Routine Dysphagia, unspecified type Black stools 1 Occurrences starting 05/27/2024 until 05/27/2025 [facility] Work Phone: Comment on above: 1 Occurrences starting 05/27/2024 until 05/27/2025 Patient referral [facility] Work Phone: XR Pelvis and Hip - bilateral Views [facility] Immunizations Immunization Date Immunization Notes Care Provider Fa cility 06-02-2018 Influenza, injectabl e, Madin Kyleigh Canine Kidney, preservative free, quadrivalent Argentina Clinton PT Work Phone: [facility] 06-02-2018 influenza virus vaccine, unspecified formulation Priyanka Vaz CUSTOMER SERVICE OPERATOR-ACTUARY MANAGER Work [facility]: [facility] 05-17-2017 influenza virus vaccine, split virus (incl. purified surface antigen) Jeremy Magallanes Other [facility] Other 05-17-2017 influenza virus vaccine, unspecified formulation [facility] 05-16-2017 influenza, injectabl e, quadrivalent, preservative free Argentina Clinton PT Work Phone: [facility] 06-28-2016 influenza, injectabl e, quadrivalent, preservative free Argentina Clinton PT Work Phone: [facility] 06-28-2016 tetanus and diphther ia toxoids, adsorbed, preservative free, for adult use (5 Lf of tetanus toxoid and 2 Lf of diphtheria toxoid) Jeremy Magallanes Other [facility] 05-25-2015 influenza, seasonal, injectable, preservative free Argentina Clinton PT Work Phone: [facility] 05-25-2015 tetanus and diphther ia toxoids, adsorbed, preservative free, for adult use (5 Lf of tetanus toxoid and 2 Lf of diphtheria toxoid) Jeremy Magallanes Other [facility] 06-15-1999 pneumococcal conjuga te vaccine, 7 valent Argentina Clinton PT Work Phone: [facility] Healthcare Payers Date Payer Category Payer Medicaid [id number] 2013 Medicare [id number] 1960 Unknown [id number] 2.16.84 0.1.698135.3.579.2.593 1960 Unknown [id number] 2.16.84 0.1.365403.3.579.2.593 1960 Unknown [id number] 2.16.84 0.1.055178.3.579.2.593 1960 Unknown [id number] 2.16.84 0.1.041888.3.579.2.593 1960 Unknown [id number] 2.16.84 0.1.236017.3.579.2.593 1960 Unknown [id number] 2.16.84 0.1.996311.3.579.2.593 1960 Unknown [id number] 2.16.84 0.1.697686.3.579.2.593 1960 Unknown [id number] 2.16.84 0.1.146604.3.579.2.593 1960 Unknown [id number] 2.16.84 0.1.859301.3.579.2.1259 1960 Unknown [id number] 2.16.84 0.1.428238.3.579.2.1259 1960 Unknown [id number] 2.16.84 0.1.758771.3.579.2.1259 1960 Unknown [id number] 2.16.84 0.1.150451.3.579.2.1259 1960 Unknown [id number] 2.16.840 .1.404576.3.579.2.1259 1960 Unknown [id number] 2.16.8 40.1.384937.3.579.2.1286 1960 Unknown [id number] 2.16.8 40.1.231254.3.579.2.727 1960 Unknown [id number] 2.16.8 40.1.665071.3.579.2.727 1960 Unknown [id number] 2.16. 840.1.714660.3.579.2.196 1960 Unknown [id number] 2.16. 840.1.823781.3.579.2.196 1960 Unknown [id number] 2.16. 840.1.719634.3.579.2.196 1960 Unknown [id number] 2.16. 840.1.718470.3.579.2.196 1959 Medicaid [id number] 2. 16.840.1.541650.19 1959 Medicare [id number] 2.1 6.840.1.807134.19 Self-pay [id number] Social History Date Type Detail Facility Start: 09-29-2020 End: 09-02-2023 Sex Assigned At [facility] Tobacco smoking status [facility] Start: 06-03-2019 End: 03-27-2023 Tobacco smoking status [facility] Smokes tobacco daily [facility] Work Phone: History of tobacco use Cigarette Smoker N [facility] Start: 09-29-2020 End: 03-27-2023 Cigarettes smoked current (pack per day) - Reported 0.5 [facility] Start: 06-03-2019 End: 03-27-2023 Tobacco use and exposure Smokeless tobacco non-user [facility] Start: 09-02-2023 End: 05-27-2024 Alcohol intake Lifetime non-drinker (finding) [facility] Start: 03-27-2023 Alcohol Comment Caffine- Soda [facility] Start: 1960 Sex Assigned At Male [facility] Start: 08-21-2023 Gender identity Identifies as male gender (finding) [facility] Start: 08-21-2023 Sexual orientation Heterosexual (finding) [facility] Start: 02-06-2017 End: 02-16-2025 Tobacco smoking status [facility]IS Ex-smoker (finding) [facility] Start: 1960 Sex assigned at Not on file [facility] Frequency of Alcohol Consumption Never [facility] Start: 06-01-2019 End: 01-21-2025 Sex Male (finding) [facility] Medical Equipment Procedure Code Equipment [...] mellitus acute December 22, 2024 8: 19am [facility] Work Phone: 1(246) 624-419805-06-2025 Evaluation note* Diagnosis Onset Date Resolution Status Admit Date Bronchitis acute December 22, 2024 8:19am Bruising acute December 22, 2024 8:19am Enlarged prostate acute December 8:19am Screening PSA (prostate spec ific antigen) acute December 22, 2024 8: 19am Type II diabetes mellitus acute December 22, 2024 8:19am Bronchitis acute January 21, 2025 9:26am [facility] Work Phone: 1(764) 575-338303-19-2025 NoteProgress Note-Nurse LVM to talk about A1C level, he will be getting a one year card but will have to talk with his PCP about getting that number down.[facility] 10-15-2024 Evaluation note* Diagnosis Onset Date [...] diabetes mellitus acute December 22, 2024 8:19am [facility] Work Phone: 1(565) 202-976312-05-2024 Evaluation note* Diagnosis Onset Date Resolution Status Admit Date GERD (gastroesophageal reflu x disease) acute July 23 10:18am Lymphadenopathy acute July 23, 2024 10:18am Mass of left submandibular region acute July 23 10:18am Bladder diverticulum acute Febr uary 2024 8:52am Enlarged prostate acute 2024 8:52am Lymphadenopathy acute October 15, 2024 8:52am [facility] Work Phone: [phone]) 619-702610-25-2024 Miscellaneous Notes* Telephone Encounter - Evelyn Mendoza [...] Address verified with patient. documented in this encounterSamaritan [facility] Health CenterMezmeriz [id number] Telephone encounter Note* Telephone Encounter - Evelyn [...] risk of esophageal cancer. Thanks, Dr. Kc [facility] [id number] Telephone encounter Note* Telephone Encounter - Evelyn Mendoza CMA - 06/12/2024 12:00 PM EDT Spoke with patient regarding pathology results. Patient verbally understood with no further questions. 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 Address verified with patient. [facility] [id number] History of Present illness Narrative* Priyanka Vaz, CUSTOMER SERVICE OPERATOR-ACTUARY MANAGER - 05/27/2024 2:30 PM EDT Images [...] gallbladder polyp. He saw Dr. Martinez in [place] for this. He also reports a positive [...] patient/family/caregiver Referring and communicating with other health child care sitter Dysphagia, unspecified type [R13.10] CHARLEE BIGGS [facility] This note was created with the assistance of a speech recognition program. While intending to generate a timely document that accurately reflects the content of the visit, no guarantee can be provided that every grammatical or spelling mistake has been or will be identified or corrected. Thank you for your understanding. CHARLEE Biggs 05/27/24 1555 documented in this encounterSamaritan North Health CenterMezmeriz [id number] Telephone encounter Note* Telephone Encounter - Vivian Morley - 05/15/2024 11:35 AM EDT Images from the original note were not included. Consult from Dr. Jeremy Magallanes (Internal Medicine) [facility] Referral received from PCP [...] completed: 04/08/2024 Barium Swallow 03/21/2024 CT Chest [facility]09-27-2024 Miscellaneous Notes* Telephone Encounter - Vivian Morley - 05/15/2024 11:35 AM EDT Images from the original note were not included. Consult from Dr. Jeremy Magallanes (Internal Medicine) [facility] Referral received from PCP [...] were not included. Referral was sent from [facility] for new consult with Dr Meraz Please see below and advise [facility] Telephone encounter Note * Telephone Encounter - Keily Martines - 05/14/2024 1:07 PM EDT Images from the original note were not included. Referral was sent from [facility] for new consult with Dr Meraz Please see below and advise [facility]09-16-2024 Telephone encounter Note* Telephone Encounter - Cynthia Sanchez - 05/04/2024 9:45 AM EDT Left message on sister's voice mail to contact Dr Magallanes's office for referral. [facility] [id number] Miscellaneous Notes* Telephone Encounter - Cynthia Sanchez [...] referral sent to Dr Ameya Meraz at [facility]. He is a gastrologist. The fax number is [phone] . Pt's sister would like a call back at [phone]. documented in this encounterMineral Area Regional Medical [id number] Telephone encounter Note* Telephone Encounter - Malathi Sanchez MD - 05/04/2024 9:27 AM EDT That needs to be done by Dr Magallanes's office [facility] [id number] Telephone encounter Note* Telephone Encounter - Cynthia Sanchez - 05/04/2024 9:15 AM EDT Pt's sister called in. She said her brother would like a referral sent to Dr Ameya Meraz at [facility]. He is a gastrologist. The fax number is [phone] . Pt's sister would like a call back at [phone]. [facility] [id number] History of Present illness Narrative* Malathi Sanchez MD - 04/07/2024 10:30 AM EDT Subjective Patient ID: Alex Craig is a 63 y.o. male who presents for Neck Mass (CT @ [facility] 02/26>[facility]) Pt reports he is [...] resolved. F/U if recurs documented in this [facility]02-14-2024 Telephone encounter Note* Telephone Encounter - Maris Tavera - 10/02/2023 1:35 PM EST No attempts to hear back; closing referral. [facility] [id number] Miscellaneous Notes* Telephone Encounter - Maris Tavera - 10/02/2023 1:35 PM EST No attempts to hear back; closing referral. documented in this [facility]01-26-2024 Evaluation note* Encounter Date Diagnosis Assessment Notes Treatment Notes Treatment Clinical Notes Aug, Chronic obstructive pulmonary disease, unspecified (ICD-10 - J44.9) Finish antibiotics and prednisone as prescribed. Denies pulmonary referral at this time. Hasn't smoked since 09/08 and declines chantix or patches. Aug, Current smoker (ICD-10 - F17.200) [facility] Other 01-23-2024 Evaluation note* Encounter Date Diagnosis Assessment Notes Treatment Notes Treatment Clinical Notes Aug, Lumbar radicular pain (ICD-10 - M54.16) [facility] Other 01-19-2024 Evaluation note* Encounter Date Diagnosis Assessment Notes Treatment Notes Treatment Clinical Notes Aug, Lumbar radicular pain (ICD-10 - M54.16) [facility] Other 12-26-2023 Evaluation note* Encounter Date Diagnosis Assessment Notes Treatment Notes Treatment Clinical Notes Jul, Type 2 diabetes mellitus with hyperglycemia, without long-term current use of insulin (ICD-10 - E11.65) [facility] Other 12-26-2023 Evaluation note* Encounter Date Diagnosis [...] T3s after shoulder pain has improved post-operatively. [facility] Other 12-04-2023 Evaluation note* Encounter Date Diagnosis Assessment Notes Treatment Notes Treatment Clinical Notes Jul, Type 2 diabetes mellitus with hyperglycemia, without long-term current use of insulin (ICD-10 - E11.65) [facility] Other 12-01-2023 Evaluation note* Encounter Date Diagnosis Assessment Notes Treatment Notes Treatment Clinical Notes Jul, Type 2 diabetes mellitus with hyperglycemia, without long-term current use of insulin (ICD-10 - E11.65) [facility] Other 11-30-2023 Evaluation note* Encounter Date Diagnosis Assessment Notes Treatment Notes Treatment Clinical Notes Jun, Labral tear of shoulder, right, subsequent encounter (ICD-10 - S43.431D) [facility] Other 11-14-2023 Evaluation note* Encounter Date Diagnosis [...] pain (ICD-10 - R07.9) r/o cardiac cause [facility] Other 11-07-2023 Evaluation note* Encounter Date Diagnosis [...] to decrease dose and possibly discontinue medication. [facility] Other 11-02-2023 Evaluation note* Encounter Date Diagnosis Assessment Notes Treatment Notes Treatment Clinical Notes Jun, Acute pain of right shoulder (ICD-10 - M25.511) [facility] Other 10-30-2023 Evaluation note* Encounter Date Diagnosis Assessment Notes Treatment Notes Treatment Clinical Notes May, Acute pain of right shoulder (ICD-10 - M25.511) [facility] Other 10-23-2023 Evaluation note* Encounter Date Diagnosis Assessment Notes Treatment Notes Treatment Clinical Notes May, Acute pain of right shoulder (ICD-10 - M25.511) [facility] Other 10-16-2023 Evaluation note* Encounter Date Diagnosis Assessment Notes Treatment Notes Treatment Clinical Notes May, Acute pain of right shoulder (ICD-10 - M25.511) [facility] Other 10-10-2023 Evaluation note* Encounter Date Diagnosis Assessment Notes Treatment Notes Treatment Clinical Notes May, Acute pain of right shoulder (ICD-10 - M25.511) MRI and surgery planning pending. Pt understands this is a controlled substance and to call in 1 week w update on treatment plan. May, Bronchitis (ICD-10 - J40) Finish antibiotic, rest, hydrate Steroids for wheezing. [facility] Other 10-04-2023 Evaluation note* Encounter Date Diagnosis Assessment Notes Treatment Notes Treatment Clinical Notes May, Acute pain of right shoulder (ICD-10 - M25.511) Reviewed OARRS and discussed short term plan of increase in pain medication. He is due for a refill of the T3s presently. Stop them, replace w norco. Pt understands weekly prescription and will need to d/c after anticipated surgery. [facility] Other 09-12-2023 Evaluation note* Encounter Date Diagnosis [...] office and the ER visit on 04/26 [facility] Other 07-05-2023 Evaluation note* Encounter Date Diagnosis [...] and will need less prn pain med. [facility] Other 06-01-2023 Evaluation note* Encounter Date Diagnosis [...] left shoulder (ICD-10 - M25.512) as above. [facility] Other 04-17-2023 Evaluation note* Encounter Date Diagnosis Assessment Notes Treatment Notes Treatment Clinical Notes Nov, Bronchitis (ICD-10 - J40) [facility] Other 04-11-2023 Evaluation note* Encounter Date Diagnosis Assessment Notes Treatment Notes Treatment Clinical Notes Nov, Disc degeneration, lumbar (ICD-10 - M51.36) Nov, Lumbar radicular pain (ICD-10 - M54.16) [facility] Other 04-07-2023 Evaluation note* Encounter Date Diagnosis [...] quit smoking. Pt verbalizes understanding and agreement. [facility] Other 02-15-2023 Evaluation note* Encounter Date Diagnosis Assessment Notes Treatment Notes Treatment Clinical Notes Sep, Lumbar radicular pain (ICD-10 - M54.16) [facility] Other 01-17-2023 Evaluation note* Encounter Date Diagnosis [...] is outlined on the test result page. [facility] Other 10-20-2022 NoteIndication: Calculus in kidney. Comparison: [...] authenticated by: JOHN PINTO Date: 2022-06-07 20:07[facility]06-21-2022 Evaluation note* Encounter Date Diagnosis Assessment [...] of infection, hardware pullout, cuff repair failure, heat treat puller pain and stiffness are well known problems [...] of repair, infection and wound healing delays. [facility] Other 04-26-2022 NotePROCEDURE: XR SHOULDER LT 2V or > COMPARISON: None. HISTORY: Pain of left shoulder joint FINDINGS: BONES:No acute fracture or dislocation. 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 No visible soft tissue swelling. EFFUSION:None visible. OTHER: Negative. IMPRESSION: Mild osteoarthritis Electronically authenticated by: BARBIE MEMBRENO Date: 2021-12-12 15:[address] [place], [place] 5631004-26-2022 Evaluation note* Encounter Date Diagnosis Assessment Notes [...] pain of left shoulder (ICD-10 - M25.512) [facility] Other 10-08-2021 Evaluation note* Encounter Date Diagnosis [...] as needed for cough. Advised patient that [place] contains antihistamine and cough suppressant and to be cautious using other OTC cold medications. Patient to follow up with PCP if symptoms do not improve. Immediate eval if SOB, difficulty breathing, chest pain, dizziness, or other concerning symptoms. Patient verbalizes understanding and is agreeable to treatment plan [facility] Other Evaluation + Plan note No data available for this section [facility] noteNo InformationNortLifecare [facility] Other Evaluation note* Diagnosis Onset Date Resolution Status Arthralgia acute Lumbar pain acute Type II diabetes mellitus ac [facility] Work Phone: Evaluation note* Diagnosis Onset Date Resolution Status Arthralgia acute Lumbar pain acute Type II diabetes mellitus ac [place] Bilateral hip pain acute [facility] Work Phone: Evaluation note* Diagnosis Onset Date Resolution Status Arthralgia acute Lumbar pain acute Type II diabetes mellitus ac [place] Bilateral hip pain acute Lumbar pain acute [facility] Work Phone: Evaluation note* Diagnosis Onset Date Resolution Status Submandibular abscess acute Chronic obstructive pulmonary disease, unspecified acute Esophageal abnormality acute Mass of left submandibular region 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 Hiatal hernia acute [facility] Work Phone: Evaluation note* Diagnosis Esophageal dysphagia- Primary Dysphagia, pharyngoesophageal phase Neck mass Swelling, mass, or lump in head and neck documented in this encounter [facility]* Diagnosis Dysphagia, unspecified type- Primary Black stools Nonspecific abnormal finding in stool contents Gastroesophageal reflux disease, unspecified whether esophagitis present Abnormal esophagram documented in this encounter [facility]* Diagnosis Dysphagia, unspecified type Black stools Nonspecific abnormal finding in stool contents documented [facility] this encounter [facility] Narrative - Reported* Type Description Date Medical History Asthma Medical History skin cancer-lip Surgical History Left lung biopsy 1977 Surgical History L4 and L5 disc fusion 1984 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 Surgical History carpal tunnel release 2016 Surgical History tonsillectomy Hospitalization History 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 Hospitalization History pneumonia [facility] Other Hospital Discharge instructions No data available for this section [facility] instructionsAmb[facility] Orders* Referral to ENT Time Frame: 03/18/24, Location: None [facility] Work Phone: Hospital Discharge instructionsAmbulatory Orders* Referral to Urology Time Frame: 10/15/24, Location: None [facility] Work Phone: InstructionsNot on filedocumented in this encounter [facility] SystemInstructionsNot on filedocumented in this encounter [facility] [facility] SystemInstructionsNot on filedocumented in this encounter [facility] SystemProgress note No data available for this section [facility] HealthReason for referral (narrative)No reason for referral information availableKettering Health Greene Memorial Work Phone: Summary Purpose Family History No [...] 1 Epigastric abdominal pain (R10.13) Referral Organization [facility] [employer] omar Referring Provider First Name Jeremy Referring Provider Last Name Sona Referring Provider Specialty [facility] Ryan Referred Organization [facility] Referred Provider Sai Martinez Referred Address ,[place], [place],[address] Referred Provider Specialty Surgery Referral Priority Routine General Notes Es Camilo 11:38:02 AM >received today, attachments made, notes locked, referral faxed Reason 01/28/23 Access Or tho - B shoulder pain L>R - hopes for injections. Diagnosis 1 Pain in right should er (M25.511) Referral Organization [facility] [employer] [facility] omar Referring Provider First Name Jeremy Referring Provider Last Name Sona Referring Provider [facility] [employer] Referred Organization [facility] Referred Provider Barbie Jesus Referred Address ,[place], [place],[address] Referred Provider Specialty Orthopaedic Surgery Referral Priority [...] in right should er (M25.511) Referral Organization [facility] Lisha nelson Referring Provider First Name Jeremy Referring Provider Last Name Sona Referring Provider Specialty [facility] Referred Organization [facility] Referred Provider Barbie Jesus Referred Address ,[place], [place],[address] Referred Provider Specialty Orthopaedic Surgery Referral Priority [...] call back reinier. Reason Comments New Patient Glue Bone Crusher - Other Reason Comments Neck Mass [facility] @ [facility] 02/26>[facility] Reason Comments postive cologuard [...] DATE CREATED AUTHOR AUTHOR'S ORGANIZ ATION 04/08/2024 [facility] EPIC DATE CREATED AUTHOR AUTHOR'S ORGANIZ ATION 05/23/2024 [facility] DATE CREATED AUTHOR AUTHOR'S ORGANIZ ATION 05/29/2024 [facility] DATE CREATED AUTHOR AUTHOR'S ORGANIZ ATION 06/12/2024 [facility] DATE CREATED AUTHOR AUTHOR'S ORGANIZ ATION 11/06/2024 [place] [facility] DATE CREATED AUTHOR AUTHOR'S ORGANIZ ATION 11/11/2024 [place] [facility] DATE CREATED AUTHOR AUTHOR'S ORGANIZ ATION 05/24/2025 [facility] Patient Care team informatio n [...] Provider Active Start : October 23, 2023 Rod Placer Relationship Specialty [place] [address] [place] [phone] PCP - General Family Medicine 01/23/23 Team Status: Inactive Member Role Status Dates Jeremy Magallanes MD Attending Provider Active St art: September 13, 2023 End: September 13, 2023 Rod Placer Relationship Specialty Start Date End Date Jeremy Magallanes MD [address] [facility] [place] [phone] Referring Family Medicine 05/12/24 Rod Placer Relationship Specialty Start Date End Date Jeremy Magallanes MD [address] [place] [phone] PCP - General Family Medicine 01/23/23 Rod Placer Relationship Specialty Start Date End Date Jeremy Magallanes MD [address] [place] [phone] PCP - General Family Medicine 01/23/23 Rod Placer Relationship Specialty Start Date End Date Jeremy Magallanes MD [address] [place] [phone] PCP - General Family Medicine 01/23/23 Rod Placer Relationship Specialty Start Date End Date Jeremy Magallanes MD [address] [facility] [address] PCP - General Family Medicine 06/03/19 Rod Placer Relationship Specialty Start Date End Date Jeremy Magallanes MD [address] [facility] [address] PCP - General Family Medicine 06/03/19 Rod Placer Relationship Specialty Start Date End Date Jeremy Magallanes MD [address] [facility] [address] PCP - General Family Medicine 06/03/19 Rod Placer Relationship Specialty Start Date End Date Jeremy Magallanes MD [address] [facility] [address] PCP - General Family Medicine 06/03/19 Team [...] or prosecute any alcohol or drug abuse patient.[facility] FOR RECORDS PERTAINING TO PATIENTS WHO [...] ON THE PRIMARY CLINICAL RECORDS. [facility]. provides no warranty or guarantee of the accuracy or completeness of information in this document.
--- OUTSIDE RECORDS SUMMARY | 2025-05-25 08:11 | XMS_ITS | Encounter Summary ---
Author Organization [facility] Address [address] [place] [address] Care Team Providers Care Pacu Nurse Name Role Phone Hannah Gallo MD Primary Care Provider [phone] Reason for Visit * Reason Onset Date Comments Med Refill 08/26/2023 Encounter Details Date Type Department Care Team (Late st Contact Info) Description 08/26/2023 Refill [facility] [address] [facility] [place] [phone] Andre Jesus, [address] [place] [address] Nontraumatic complete tear of right rotator cuff [...] cuff documented in this encounter Care Teams Pacu Nurse Relationship Specialty Start Date End Date Hannah Gallo MD PCP - General Family Medicine 01/23/23 documented as of this encounter
== END 2025-05-24 08:59 | disposition home or self-care (01) ==
LOC: SURGOUT 05-25 08:07
PROVIDERS: PCP Family Medicine; Visit Provider Anesthesiology
DX: G58.0 Intercostal neuropathy (principal); E11.8 Type 2 diabetes mellitus with unspecified complications
CPT/HCPCS: 36415; 64640; 82948; J0665; J1100

== ENCOUNTER 2025-06-03 08:13 | Outpatient (OUT) | payer MEDICARE, MEDICAID, SELFPAY ==
--- OUTSIDE RECORDS SUMMARY | 2025-05-31 11:00 | XMS_ITS | Continuity of Care Document ---
Author Organization [facility] Address [address] [place] [address] Phone Care Team Providers Care Truck Caterer Name Role Phone Hannah Gallo MD Primary Care Provider Hannah Gallo MD Attending Provider [phone] Care Teams Patient Care Team Team Status: Active Member Role Status Dates Hannah Gallo MD Primary Care Provider Active Patient Care Team Team Status: Inactive Member Role Status Dates Hannah Gallo MD Primary Care Provider Active Start: May 31, 2025 End: May 31, 2025 Hannah Gallo MD Attending Provider Active St art: May 31, 2025 End: May 31, 2025 Chief Complaint and Reason for Visit Chief Complaint Admit Date Swollen Glands May 31, 2025 1 :27pm Reason for Visit Admit Date Chronic coughing May 31, 2025 1 :27pm Allergies, Adverse Reactions, Alerts Allergen Type Severity Reaction Last Updated Verified Status Comments fentanyl Allergy Unknown Hives May 31, 2025 1:51pm Yes Active ibuprofen Allergy Unknown hives May 31, 2025 1:51pm Yes Active Iodinated Contrast Media Allergy Unknown Hives May 31, 2025 1:51pm Yes Active olodaterol Allergy Unknown shortness of breath May 31, 2025 1:51pm Yes Active tiotropium Allergy Unknown shortness of breath May 31, 2025 1:51pm Yes Active cefdinir Adverse Reaction Moderate Vomiting May 31, 2025 1:51pm Yes Active nausea, vomiting Ibuprofen & Diet Manage Prod * Allergy Unknown Hives December 04, 2023 8:24am No Active Free Text Allergy: Ibuprofen & Diet Manage Prod *ANALGESICS - ANTI-IN Zafirlukast *ANTIASTHMATIC AND Allergy Unknown Hives December 04, 2023 8:24am No Active Free Text Allergy: Zafirlukast *ANTIASTHMATIC AND BRONCHODILATOR AGEN Social History Smoking Status Status Start Date End Date Date of Observa tion Ex-smoker (finding) February 3:27pm Observation Status Observation Response Date of Response Legal Sex Male (finding) Sex Assigned At Male May h, 1960 Family History Relationship Condition Age at Onset Recorded Date/T alayna father Unknown Malignant neoplasm Unknown mother Unknown Problems Active Problems Medical Problem Onset Date Status Esophageal abnormality Unknown Active Bladder diverticulum Unknown Active Medicare annual wellness visit, subsequent Unkno wn Active Submandibular abscess Unknown Active Screening PSA (prostate specific antigen) Unknow n Active Arthralgia Unknown Active Urticaria Unknown Active Bruising Unknown Active Enlarged prostate Unknown Active Type II diabetes mellitus Unknown Active Chronic coughing Unknown Active Lymphadenopathy Unknown Active Mass of left submandibular region Unknown Active Liver mass Unknown Active 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 Unknown Active Former smoker Unknown Active Lumbar pain Unknown Active Bilateral hip pain Unknown Active Chronic obstructive pulmonary disease, unspecifi ed Unknown Active GERD (gastroesophageal reflux disease) Unknown Active Bronchitis Unknown Active Hiatal hernia Unknown Active Medications Medication Status Dose Units Route Directions Qty Days St art Date Stop Date End Date Instructions Adherence Atorvastati n 20 mg tablet Discont inued 0 .ROUTE .COMPLEX 90 October 23, 2023 3:27pm December 17, 2023 9:20a m TAKE 1 TABLET BY MOUTH EVERY DAY FOR 30 DAYS Acetaminoph en-Codeine 300-30 mg tablet Discont inued 1 TAB PO Every 6 hours as needed for pain 120 November 04, 2023 4:38pm December 05, 2023 9:26a m FreeTextSi tablet as needed Orally every 6 hrs; Note: Source Status: Taking; Qty: 120 Tablet; Provider: Sabino Jovel Methylpredn isolone 4 mg tablets,dos e pack Discont inued 0 PO per package directions December 06, 2023 12:00a m December 17, 2023 9:20a m PO PER PKG DIR for 6 days Acetaminoph en-Codeine 300-30 mg tablet Discont inued 1 TAB PO Every 8 hours as needed for pain 90 December 06, 2023 1:56pm February 16, 2025 2:48p m Azithromyci n 250 mg tablet Discont inued 0 PO .COMPLEX December 20, 2023 12:00a m March 03, 2024 12:09 pm For 250 mg dose pack: take 500 mg today (day 1), then 250 mg for 4 days (days 2-5) PO Duloxetine 60 mg capsule,del ayed release(DR/ EC) Discont inued 0 .ROUTE .COMPLEX February 19, 2024 8:39am March 18, 2024 9:00a m TAKE 1 CAPSULE BY MOUTH EVERY DAY FOR 90 DAYS Ondansetron 4 mg tablet,disi ntegrating Discont inued 4 MG PO Q8H 2023 12:00a m Janua ry 2024 4:28p m Albuterol Sulfate 90 mcg/actuati on HFA aerosol inhaler Discont inued 2 PUFF INHALA TION Every 4 hours as needed 2023 12:00a m Septe mber 2023 8:25a m Albuterol Sulfate 90 mcg/actuati on HFA aerosol inhaler Discont inued 2 PUFF INHALA TION Every 4 hours as needed for shortness of breath or wheezing 8.5 2023 8:24am Febru julisa2024 4:35p m Prednisone 20 mg tablet Discont inued 20 MG PO Twice daily 2024 2:19pm 2024 10:03 am Omeprazole 40 mg capsule,del ayed release(DR/ EC) Discont inued 40 MG PO Daily 2024 4:28pm January 21, 2025 9:39a m Ondansetron 4 mg tablet,disi ntegrating Discont inued 4 MG PO Q8H 2024 4:28pm December 07, 2024 4:32p m Albuterol Sulfate 90 mcg/actuati on HFA aerosol inhaler Discont inued 2 PUFF INHALA TION Every 4 hours as needed for shortness of breath or wheezing 8.5 ua 2024 4:35pm January 12, 2025 12:22 pm Glipizide-M etformin 5-500 mg tablet Discont inued 0 .ROUTE .COMPLEX 360 October 22, 2024 11:21a m Septe mber 2024 10:31 am TAKE 2 TABLETS BY MOUTH TWICE DAILY Lancets (Accu-Chek Fastclix Lancet Drum) misc Discont inued 0 .Route October 26, 2024 12:00a m October 27, 2024 10:18 am As directed Lancets (Accu-Chek Fastclix Lancet Drum) misc Discont inued 0 .ROUTE .COMPLEX October 27, 2024 10:18a m October 28, 2024 2:14p m USE TO TEST DAILY Lancets (Accu-Chek Fastclix Lancet Drum) misc Active 0 .ROUTE .COMPLEX October 28, 2024 12:42p m USE TO TEST DAILY Blood Sugar Diagnostic (Accu-Chek Ya Plus Test Strp) strip Discont inued 0 .Route November 04, 2024 12:00a m November 05, 2024 8:33a m As directed Blood Sugar Diagnostic (Accu-Chek Ya Plus Test Strp) strip Discont inued 0 .Route November 05, 2024 8:33am November 05, 2024 3:39p m As directed Blood Sugar Diagnostic (Accu-Chek Ya Plus Test Strp) strip Discont inued 0 .Route November 05, 2024 3:39pm November 06, 2024 1:39p m As directed E11.9 Blood Sugar Diagnostic (Accu-Chek Ya Plus Test Strp) strip Active 0 .Route November 06, 2024 1:38pm To test 1 time daily. E11.9 Ondansetron 4 mg tablet,disi ntegrating Discont inued 4 MG PO Q8H December 07, 2024 4:32pm January 21, 2025 9:39a m Azithromyci n 250 mg tablet Discont inued 0 PO .COMPLEX 6 December 24, 2024 12:00a m January 21, 2025 9:38a m For 250 mg dose pack: take 500 mg today (day 1), then 250 mg for 4 days (days 2-5) PO Albuterol Sulfate 90 mcg/actuati on HFA aerosol inhaler Discont inued 0 .ROUTE .COMPLEX 8.5 January 12, 2025 12:22p m Octob er 2024 2:24p m INHALE 2 PUFFS EVERY 4 HOURS NEEDED FOR WHEEZE OR FOR SHORTNESS OF BREATH Prednisone 10 mg tablet Discont inued 10 MG PO As Directed February 03, 2025 9:31am February 15, 2025 12:11 pm 4 daily x 2 days, 3 daily x 2 days, 2 daily x 2 days, 1 daily x 6 days Prednisone 10 mg tablet Discont inued 10 MG PO As Directed February 15, 2025 12:11p m March 09, 2025 3:55p m 4 daily x 2 days, 3 daily x 2 days, 2 daily x 2 days, 1 daily x 6 days Prednisone 10 mg tablet Discont inued 10 MG PO As Directed March 09, 2025 3:54pm Augus t 2024 9:41a m 4 daily x 2 days, 3 daily x 2 days, 2 daily x 2 days, 1 daily x 6 days Rosuvastati n 20 mg tablet Active 20 MG PO Daily March 13, 2025 12:00a m Complies with drug therapy Prednisone 10 mg tablet Discont inued 10 MG PO As Directed March 26, 2025 9:41am Octob er 2024 8:16a m 4 daily x 2 days, 3 daily x 2 days, 2 daily x 2 days, 1 daily x 6 days Glipizide-M etformin 5-500 mg tablet Active 0 .ROUTE .COMPLEX 360 Sept2024 10:31a m TAKE 2 TABLETS BY MOUTH TWICE DAILY Complies with drug therapy Prednisone 10 mg tablet Active 10 MG PO As Directed Mayobe r 2024 8:16am 4 daily x 2 days, 3 daily x 2 days, 2 daily x 2 days, 1 daily x 6 days Complies with drug therapy Albuterol Sulfate 90 mcg/actuati on HFA aerosol inhaler Active 0 .ROUTE .COMPLEX 8.5 Mayobe r 2024 2:24pm INHALE 2 PUFFS EVERY 4 HOURS NEEDED FOR WHEEZE OR FOR SHORTNESS OF BREATH Complies with drug therapy Atorvastati n 20 mg tablet Discont inued 20 MG PO Daily October 23, 2023 1:00am October 23, 2023 3:27p m Glipizide-M etformin 5-500 mg tablet Discont inued TAB PO December 04, 2023 12:00a m October 22, 2024 11:22 am FreeTextSi tab Orally bid; Note: Source Status: Start; Refills: 1; Qty: 360 Tablet; Provider: Sabino Young ( ) Hydrocodone -Acetaminop hen 10-325 mg tablet Discont inued 1 TAB PO Every 6 hours December 04, 2023 12:00a m December 05, 2023 9:19a m FreeTextSi tablet as needed Orally every 6 hrs; Note: Source Status: Unknown; Refills: 0; Qty: 28 Tablet; Provider: Sabino Jovel Acetaminoph en-Codeine 300-30 mg tablet Discont inued 1 TAB PO Every 8 hours as needed for pain 90 December 05, 2023 9:21am December 06, 2023 1:57p m FreeTextSi tablet as needed Orally every 6 hrs; Note: Source Status: Taking; Qty: 120 Tablet; Provider: Sabino Jovel Duloxetine 60 mg capsule,del ayed release(DR/ EC) Discont inued 60 MG PO Daily February 19, 2024 12:00a m February 19, 2024 8:39a m Nicotine (Nicoderm Cq) 14 mg/24 hr patch 24 hour Discont inued 1 PATCH TRANSD ERML Daily March 03, 2024 12:00a m March 18, 2024 9:00a m Omeprazole 40 mg capsule,del ayed release(/ EC) Discont inued 40 MG PO Twice daily Dece er 2023 1:00am Dece 2023 11:55 am Omeprazole 40 mg capsule,del ayed release(DR/ EC) Discont inued 40 MG PO Daily mb er 2023 1:00am 2024 4:28p m Cetirizine (Zyrtec) 10 mg capsule Active 10 MG PO Twice daily as needed 2024 1:00am Complies with drug therapy Methylpredn isolone (Medrol (Boris)) 4 mg tablets,dos e pack Discont inued 0 PO per package directions 2024 1:00am December 22, 2024 8:24a m PO PER PKG DIR for 6 days Cefdinir 300 mg capsule Discont inued 300 MG PO Twice daily December 22, 2024 12:00a m December 24, 2024 8:18a m Prednisone 20 mg tablet Discont inued 20 MG PO Twice daily December 22, 2024 12:00a m January 21, 2025 9:39a m Levofloxaci n 500 mg tablet Discont inued 500 MG PO Daily January 21, 2025 12:00a m February 16, 2025 3:03p m Prednisone 10 mg tablet Discont inued 10 MG PO As Directed January 21, 2025 12:00a m February 03, 2025 9:31a m 4 daily x 2 days, 3 daily x 2 days, 2 daily x 2 days, 1 daily x 6 days Acetaminoph en-Codeine 300-30 mg tablet Discont inued 1 TAB PO Every 6 hours 2023 1:00am Febru julisa2023 9:51a m FreeTextSi tablet as needed Orally every 6 hrs; Note: Source Status: Taking; Qty: 120 Tablet; Provider: Sabino Howardaminoph en-Codeine 300-30 mg tablet Discont inued 1 TAB PO Every 6 hours as needed for pain 120 2023 9:50am November 04, 2023 4:38p m FreeTextSi tablet as needed Orally every 6 hrs; Note: Source Status: Taking; Qty: 120 Tablet; Provider: Sabino Hansenromyci n 250 mg tablet Discont inued 0 PO .COMPLEX 6 2023 12:00a m Decem melida 2023 11:29 am For 250 mg dose pack: take 500 mg today (day 1), then 250 mg for 4 days (days 2-5) PO Prednisone 20 mg tablet Discont inued 20 MG PO Twice daily 2023 12:00a m 2024 2:19p m Acetaminoph en-Codeine 300-30 mg tablet Active 1 TAB PO Twice daily as needed February 16, 2025 12:00a m Complies with drug therapy Azithromyci n 250 mg tablet Active 0 PO .COMPLEX 6 Octobe r 2024 2:12pm For 250 mg dose pack: take 500 mg today (day 1), then 250 mg for 4 days (days 2-5) PO Complies with drug therapy Immunizations Immunization Event Date Not Given Reason Dose Number Salesperson Household Appliances Lot Number Vaccine Information Statement (VIS) Detail Administration Location influenza, unspecified formulation May 17, 2017 Tetanus, Diphtheria adult, 5 Lf pres free abs May 25, 2015 Tetanus, Diphtheria adult, 5 Lf pres free abs June 28, 2016 Vital Signs Vital Reading Result Reference Range Collection Date/Time Height 69 [in_i] May 31 1:46pm Weight 104.32 kg May 31 1:46pm Body Temperature 98.7 [degF] 97.6-99.0 May 1:46pm Heart Rate 75 /min 60-100 May 31 025 1:51pm Oxygen saturation by Pulse oximetry 95 % 95-100 May 31, 2025 1 :51pm BP Systolic 145 mm[Hg] 100-140 May 31 025 1:51pm BP Diastolic 70 mm[Hg] 60-100 May 31 025 1:51pm BMI (Body Mass Index) 34.0 kg/m2 Octobe r 2024 1:46pm Advance Directives Advance Directive Response Recorded Date/ Time Advance Directives No January 25 9:53am Insurance Providers Guarantor Nicholas Ziegler Address [address] [place] [phone] Contact Info. Home Phone: Payer Policy Id Subscriber's Name Subscriber Id Effectiv e Date Expiration Date Medicaid [id number] Nicholas Ziegler [id number] Medicare [id number] Nicholas Ziegler [id number] Encounters Encounter Location(s) Arrival/Admit Date Discharge/Depart Date Provider(s) Departed Physician/Prov ider Office Visit -[facility] May 31, 2025 1:27pm May 31, 2025 2:59pm Hannah Gallo MD Recent Diagnosis Onset Date Admit Date Chronic coughing Unknown May 31 025 1:27pm Assessments Diagnosis Onset Date Resolution Status Admit Date Chronic coughing acute May 31, 2025 1:27pm Plan of Treatment Future Tests Future scheduled test information is unavailable Pending Tests Test Name Ordered Date Scheduled Date XR chest 2V* May 31, 2025 2:13pm Future Visits Future appointment information is unavailable Referrals to Other Providers Referral information is unavailable Future Procedures Future procedure information is unavailable Future Medications Future medication information is unavailable Patient Instructions Patient instructions are unavailable
--- OUTSIDE RECORDS SUMMARY | 2025-05-31 14:59 | XMS_ITS | Continuity of Care Document ---
Author Organization [facility] Address [address] [place] [phone] Phone Care Team Providers Care Elevator Service Technician Name Role Phone Hannah Gallo MD Primary Care Provider Hannah Gallo MD Attending Provider Care Teams Patient Care Team Team Status: [...] Event Date Not Given Reason Dose Number Wholesale Representative Lot Number Vaccine Information Statement (VIS) Detail [...] 9:53am Insurance Providers Guarantor Nicholas Ziegler Address [address] [place] [phone] Contact Info. Home Phone: Payer Policy Id Subscriber's Name Subscriber Id Effectiv e Date Expiration Date Medicaid [id number] Nicholas Ziegler [id number] Medicare [id number] Nicholas Ziegler [id number] Encounters Encounter Location(s) Arrival/Admit Date Discharge/Depart Date Provider(s) Departed Physician/Prov ider Office Visit -[facility] May 31, 2025 1:27pm May 31, [...]
--- OUTSIDE RECORDS SUMMARY | 2025-06-03 08:16 | XMS_ITS | Encounter Summary ---
Author Organization [facility] Address [address] [place] [address] Care Team Providers Care Study Hall Supervisor Name Role Phone Hannah Gallo MD Primary Care Provider [phone] Encounter Details Date Type Department Care Team (Late st Contact Info) Description 04/08/2024 Clinisync Result Encounter [facility] External Department Unsolicited Malathi Jimenez MD [address] [facility] [address] [place] [address] Social History Tobacco Use Types Packs/Day Years [...] EDT Narrative 04/08/2024 11:00 AM EDT The [address] [address] Fluoroscopy Report Signed Patient: NICHOLAS ZIEGLER MR#: [id number] : 1960 Acct:[id number] Age/Sex: 63 / M ADM Date: 04/08/24 Loc: [place] Attending Dr: Malathi Jimenez M.D. Ordering Physician: Malathi Jimenez M.D. Date of Service: 04/08/24 Procedure(s): [place] cineradiography Accession Number(s): [id number] cc: Hannah Gallo M.D.; Malathi Jimenez M.D. [facility] [address] [address] Patient Name: NICHOLAS ZIEGLER MRN: [id number] date: 1960 Sex: M Assigned Patient Location: [place] Current Patient Location: [place] Accession/Order Number: [id number] Exam Date: 04/08/2024 08:45 Report Date: 04/08/2024 [...] Signed By: 04/08/24 1100 DD/ 1057 TD/TT: Piano Assembler: Procedure Note Radiology, Radiologist, MD - 04/08/2024 [place] [address] Fluoroscopy Report Signed Patient: NICHOLAS ZIEGLER JMR#: [id number] : 1960Acct:[id number] Age/Sex: 63 / MADM Date: 04/08/24 Loc: [place] Attending Dr: Malathi Jimenez M.D. Ordering Physician: Malathi Jimenez M.D. Date of Service: 04/08/24 Procedure(s): FL cineradiography Accession Number(s): [id number] cc: Hannah Gallo M.D.; Malathi Jimenez M.D. The [place] [address] Patient Name: NICHOLAS ZIEGLER MRN: [id number] date: 1960 Sex: M Assigned Patient Location: [place] Current Patient Location: [place] Accession/Order Number: [id number] Exam Date: 04/08/2024 08:45 Report Date: 04/08/2024 [...] M.D. Signed By:04/08/24 1100 DD/ 1057 TD/TT: Piano Assembler: us Malathi Jimenez MD [facility] Final Resul t documented in this encounter Visit Diagnoses Not on filedocumented in this encounter Care Teams Study Hall Supervisor Relationship Specialty Start Date End Date Hannah Gallo MD PCP - General Family Medicine 01/23/23 documented as of this encounter
--- OUTSIDE RECORDS SUMMARY | 2025-06-03 08:16 | XMS_ITS | Encounter Summary ---
Author Organization [facility] Address [address] [facility] [place] [address] Care Team Providers Care Biology Intern Name Role Phone Hannah Gallo MD Primary Care Provider [phone] Encounter Details Date Type Department Care Team (Late st Contact Info) Description 10/19/2024 Orders Only [facility] [address] [facility] [address] [place] [address] Hannah Gallo MD [address] [facility] [place] [address] Social History Tobacco Use Types [...] on filedocumented in this encounter Care Teams Biology Intern Relationship Specialty Start Date End Date Hannah Gallo MD PCP - General Family Medicine 01/23/23 documented as of this encounter
--- OUTSIDE RECORDS SUMMARY | 2025-06-03 08:16 | XMS_ITS | Clinical Summary ---
Author Organization [facility] Address [address] [place] [address] Care Team Providers Care Sanitation Director Name Role Phone Hannah Gallo MD Primary Care Provider [phone] Allergies Active Allergy Reactions Criticality Noted Date [...] file Insurance MEDICARE MEDICAID [place] Care Teams Sanitation Director Relationship Specialty Start Date End Date Hannah Gallo MD PCP - General Family Medicine 01/23/23
--- OUTSIDE RECORDS SUMMARY | 2025-06-03 08:16 | XMS_ITS | Encounter Summary ---
Author Organization [facility] Address [address] [place] [address] Care Team Providers Care Court Specialist Name Role Phone Hannah Gallo MD Primary Care Provider [phone] Encounter Details Date Type Department Care Team (Late st Contact Info) Description 04/08/2024 Clinisync Result Encounter [facility] External Department Unsolicited Cailin Jimenez MD [address] [facility] [address] [place] [address] Social History Tobacco Use Types Packs/Day Years [...] Procedure Name Priority Date/Time Associated Diagnosis Comments FL MODIFIED BARIUM SWALLOW 04/08/2024 10:57 AM EDT documented in this encounter Results * FL MODIFIED BARIUM SWALLOW (04/08/2024 10:57 AM EDT) Anatomical Region Laterality Modality Radiographic Katheryn ging 04/08/2024 10:5 7 AM EDT Narrative 04/08/2024 11:00 AM EDT [address] [address] Fluoroscopy Report Signed Patient: NICHOLAS ZIEGLER MR#: [id number] : 1960 Acct:[id number] Age/Sex: 63 / M ADM Date: 04/08/24 Loc: [place] Attending Dr: Cailin Jimenez M.D. Ordering Physician: Cailin Jimenez M.D. Date of Service: 04/08/24 Procedure(s): FL barium swallow Accession Number(s): [id number] cc: Hannah Gallo M.D.; Cailin Jimenez M.D. [place] [address] Patient Name: NICHOLAS ZIEGLER MRN: [id number] date: 1960 Sex: M Assigned Patient Location: [place] Current Patient Location: [place] Accession/Order Number: [id number] Exam Date: 04/08/2024 08:45 Report Date: 04/08/2024 10:57 At the request of: CAILIN JIMENEZ Procedure: FL barium swallow EXAMINATION: FL barium swallow, FL cineradiography HISTORY: [...] Signed By: 04/08/24 1100 DD/ 1057 TD/TT: Composition Worker: Procedure Note Radiology, Radiologist, MD - 04/08/2024 [place] [address] Fluoroscopy Report Signed Patient: NICHOLAS ZIEGLER JMR#: [id number] : 1960Acct:[id number] Age/Sex: 63 / MADM Date: 04/08/24 Loc: [place] Attending Dr: Cailin Jimenez M.D. Ordering Physician: Cailin Jimenez M.D. Date of Service: 04/08/24 Procedure(s): FL barium swallow Accession Number(s): [id number] cc: Hannah Gallo M.D.; Cailin Jimenez M.D. [place] [address] Patient Name: NICHOLAS ZIEGLER MRN: [facility]:[id number] date: 1960 Sex: M Assigned Patient Location: [place] Current Patient Location: [place] Accession/Order Number: [id number] Exam Date: 04/08/2024 08:45 Report Date: 04/08/2024 10:57 At the request of: CAILIN JIMENEZ Procedure: FL barium swallow EXAMINATION: FL barium swallow, FL cineradiography HISTORY: [...] M.D. Signed By:04/08/24 1100 DD/ 1057 TD/TT: Composition Worker: us Cailin Jimenez MD IMG XR PROCEDURES Final Resul t documented in this encounter Visit Diagnoses Not on filedocumented in this encounter Care Teams Court Specialist Relationship Specialty Start Date End Date Hannah Gallo MD PCP - General Family Medicine 01/23/23 documented as of this encounter
--- OUTSIDE RECORDS SUMMARY | 2025-06-03 08:16 | XMS_ITS | Encounter Summary ---
Author Organization [facility] Address [address] [place] [address] Care Team Providers Care Pocket Secretary Assembler Name Role Phone Hannah Gallo MD Primary Care Provider [phone] Encounter Details Date Type Department Care Team (Late st Contact Info) Description 03/06/2023 Abstract [facility] [address] [place] [id number] Andre Jesus DO [address] [place] [address] Social History Tobacco Use Types Packs/Day Years [...] on filedocumented in this encounter Care Teams Pocket Secretary Assembler Relationship Specialty Start Date End Date Hannah Gallo MD PCP - General Family Medicine 01/23/23 documented as of this encounter
--- OUTSIDE RECORDS SUMMARY | 2025-06-03 08:16 | XMS_ITS | Clinical Summary ---
Author Organization [facility] Address [address] [place] [address] Care Team Providers Care Neuro Urologist Name Role Phone Hannah Gallo MD Unavailable [phone] Social History Tobacco Use Types Packs/Day Years Used Date Smoking Tobacco: Never Assessed Sex and Gender Information Value Date Recorded Sex Assigned at Not on file Legal Sex Male 8:58 AM EST Gender Identity Not on file Sexual Orientation Not on file Plan of Treatment [place] [address] MEDICARE Care Teams Neuro Urologist Relationship Specialty Start Date End Date Hannah Gallo MD [address] [place] [address] Referring Family Medicine 05/12/24
--- NOTE | 2025-06-03 08:17 | XR_ITS ---
The [place] [id number] Patient Name: ERIC CRAIG MRN: [id number] date: 1960 Sex: M Assigned Patient Location: [facility] Current Patient Location: [facility] Accession/Order Number: [id number] Exam Date: 06/03/2025 08:19 Report Date: 06/03/2025 08:56 At the request of: JEREMY MAGALLANES MD Procedure: XR chest 2V PA AND LATERAL CHEST: CLINICAL HISTORY: Chronic Cough COMPARISON: 12/22/[address] 02/24/2025 There is no focal parenchymal consolidation, effusion or pneumothorax. The cardiac, hilar and mediastinal silhouettes are within normal limits. There is no vascular congestion. The visualized bony thorax is intact. There is slight dextroscoliotic curvature and mild degenerative change at the spine. XR/XR chest 2V IMPRESSION: NO ACUTE CARDIOPULMONARY ABNORMALITY. Impression dictated by: Otilia Nunez M.D. 06/03/2025 8:56 AM Dictation Location: [place] [address] Electronically authenticated by: [id number] Y Date: 06/03/2025 08:56
--- OUTSIDE RECORDS SUMMARY | 2025-06-03 08:17 | XMS_ITS | Encounter Summary ---
Author Organization [facility] Address [address] [facility] [place] [address] Care Team Providers Care Plunket Nurse Name Role Phone Hannah Gallo MD Primary Care Provider [phone] Encounter Details Date Type Department Care Team (Late st Contact Info) Description 07/29/2023 Abstract [facility] [address] [facility] [address] [place] [phone] Andre Jesus, DO [address] [facility] [place] [address] Social History Tobacco Use Types Packs/Day Years [...] on filedocumented in this encounter Care Teams Plunket Nurse Relationship Specialty Start Date End Date Hannah Gallo MD PCP - General Family Medicine 01/23/23 documented as of this encounter
--- OUTSIDE RECORDS SUMMARY | 2025-06-03 08:17 | XMS_ITS | Encounter Summary ---
Author Organization [facility] Address [address] [place] [address] Care Team Providers Care News Correspondent Name Role Phone Hannah Gallo MD Primary Care Provider [phone] Reason for Visit * Reason Onset Date Comments Med Refill 08/26/2023 Encounter Details Date Type Department Care Team (Late st Contact Info) Description 08/26/2023 Refill [facility] [address] [place] [phone] Andre Jesus, [address] [place] [address] Nontraumatic complete tear of right rotator cuff [...] cuff documented in this encounter Care Teams News Correspondent Relationship Specialty Start Date End Date Hannah Gallo MD PCP - General Family Medicine 01/23/23 documented as of this encounter
--- OUTSIDE RECORDS SUMMARY | 2025-06-03 08:17 | XMS_ITS | Clinical Summary ---
Author Organization [facility] Address [address] [place] [address] Care Team Providers Care Field Service Coordinator Name Role Phone Unavailable Primary Care Provider Unavailabl e Source Comments The following information is NOT included in Care Everywhere downloads:Psychiatric notes, ECG results, Cardiac Rehab notes, Pulmonary Function notes, data from [facility] (includes but not limited toPregnancy data,audiograms, eye exams, pre-surgical evaluation notes, well-child exam data).[facility] Family History Medical History Relation Name [...]
--- OUTSIDE RECORDS SUMMARY | 2025-06-03 08:17 | XMS_ITS | Encounter Summary ---
Author Organization [facility] Address [address] [place] [address] Care Team Providers Care Workers Compensation Claims Examiner Name Role Phone Hannah Gallo MD Primary Care Provider [phone] Encounter Details Date Type Department Care Team (Late st Contact Info) Description 05/30/2023 Clinisync Result Encounter [facility] External Department Unsolicited Andre Jesus, DO [address] [place], [place] [id number] Social History Tobacco Use Types Packs/Day Years [...] on filedocumented in this encounter Care Teams Workers Compensation Claims Examiner Relationship Specialty Start Date End Date Hannah Gallo MD PCP - General Family Medicine 01/23/23 documented as of this encounter
--- OUTSIDE RECORDS SUMMARY | 2025-06-03 08:17 | XMS_ITS | Clinical Summary ---
Author Organization [facility] tem Address [id number] [address] [place] [address] Care Team Providers Care Warehouse Unloader Name Role Phone Hannah Gallo MD Primary Care Provider [phone] Allergies Active Allergy Reactions Criticality Noted Date [...] Comments Tobacco Counseling 1960 Depression Screening 1972 Zoster (Shingles) Vaccine (1 of 2) 2010 Influenza Vaccine 04/19/2025 06/02/2018, , 05/16/2017, Additional history exists Abdominal Aortic Aneurysm (A AA) Screen 2025 Fall Risk Screening 2025 Adult BMI Screening 05/27/2025 05/27/2024 Tobacco Screening 05/27/2025 05/27/2024 DTaP,Tdap and Td Vaccines (3 - Td or Tdap) 06/28/2026 06/28/2016, 05/25/2015 Medical Devices Not on file Insurance MEDICARE MEDICAID [place] Care Teams Warehouse Unloader Relationship Specialty Start Date End Date Hannah Gallo MD [facility] [place] [address] PCP - General Family Medicine 06/03/19
--- OUTSIDE RECORDS SUMMARY | 2025-06-03 08:17 | XMS_ITS | Encounter Summary ---
Author Organization [facility] Address [address] [place] [address] Care Team Providers Care Associate Quality Engineer Name Role Phone Hannah Gallo MD Primary Care Provider [phone] Encounter Details Date Type Department Care Team (Late st Contact Info) Description 09/05/2023 Abstract [facility] [address] [facility] [place] [phone] Andre Jesus DO [address] [place] [address] Social History Tobacco Use Types Packs/Day Years [...] on filedocumented in this encounter Care Teams Associate Quality Engineer Relationship Specialty Start Date End Date Hannah Gallo MD PCP - General Family Medicine 01/23/23 documented as of this encounter
--- OUTSIDE RECORDS SUMMARY | 2025-06-03 08:18 | XMS_ITS | CCD ---
Author Organization [facility] Care Team Providers Care [employer] Name Role Phone Ronnie Kesha Unavailable Chepe Harriet Unavailable Jeremy Magallanes Unavailable SONA, DR JEREMY Jovel Admitting Unavailable MAGALLANES, DR JEREMY Jovel Attending Unavailable MAGALLANES, DR JEREMY Jovel Primary Care Unavailable MAGALLANES, DR JEREMY Jovel Consulting Unavailable TAVERASRUBI Consulting Unavailable OLEXA, KESHA Admitting Unavailable OLEXA, KESHA Attending Unavailable MAGALLANES, DR JEREMY Jovel Primary Care Unavailable PAIGE, DR BARBIE Goldberg Consulting Unavailable OLEXA, KESHA [...] JIN Attending Unavailable Jeremy Magallanes MD Unavailable [phone] PRIYANKA VAZ Attending Unavailable JEREMY MAGALLANES Referring Unavailable JEREMY MAGALLANES Primary Care Unavailable MD Jeremy Magallanes Primary Care Provider DO Bill Henry Attending Provider Jeremy Magallanes Primary Care Unavailable Blil Henry Attending Unavailable Bill Henry Admitting Unavailable Jeremy Magallanes MD Primary Care Provider CHIKIS, Ligia Boggs Attending Unavailable CHIKISLigia OLIVA T Admitting Unavailable CHIKISLigia OLIVA T Attending Unavailable CHIKISLigia OLIVA T Attending Unavailable CHIKISLigia OLIVA Admitting Unavailable Jeremy Magallanes MD Primary Care Provider Jeremy Magallanes MD Attending Provider Arnoldo Somers MD Attending Provider Gifrantz JACOB, Andrius Ruth Attending Unavailable Giedrakaterine JACOB, Andrius Vytautchela Attending Unavailable Gifrantz JACOB, Andrius Vytautas Attending Unavailable Gifrantz JACOB, Andrius Vytautchela Attending Unavailable Shahzad JACOB, Andrius Vsharlene Attending Unavailable Jeremy Magallanes MD Primary Care Provider Jeremy Magallanes MD Attending Provider Allergies Allergy Classification Reported Allergen(s) Allergy Type Date of Onset Reaction(s) Facility (20 sources) Ibuprofen Drug Allergy [employer] Other (20 sources) olodaterol / tiotropium Drug Allergy shortness of breath [facility] [employer] Other (20 sources) CT Scan dye Propensity to adverse reactions [facility] Other (14 sources) Ibuprofen; Translations: [IBUPROFEN] Drug Allergy 08-19-18 80 hives [facility] (2 sources) Iodine (And Iodine Containting Drugs) Drug allergy (disorder) 09-07-19 16 [facility] (1 source) NSAIDs Drug allergy (disorder) [facility] (20 sources) fentaNYL Drug Allergy 12-05-19 24 Unknown, [facility] (12 sources) Ibuprofen Drug Allergy 01-15-20 15 Rash, [facility] (20 sources) Ofloxacin Drug Allergy 12-05-19 24 Unknown, [facility] (3 sources) zafirlukast Drug Allergy 01-15-20 15 [facility] [employer] Other (20 sources) Zafirlukast *ANTIASTHMATIC AND BRONCHODILATOR AGEN Propensity to adverse reactions [facility] [employer] Other (20 sources) Ibuprofen & Diet Manage Prod *ANALGESICS - ANTI-IN Propensity to adverse reactions Unknown [employer] Other (3 sources) Allergies Reconciled Propensity to adverse reactions [employer] Other (20 sources) Iodinated contrast media (substance) Drug allergy 06-03-20 19 Rash, [facility] [employer] Other (3 sources) patient allergy list reviewed by nurse or physicia Propensity to adverse reactions 10-05-19 16 Comment:[employer] Other (15 sources) olodaterol Drug Allergy 12-05-19 24 shortness of breath [facility] (15 sources) tiotropium Drug Allergy 12-05-19 24 shortness of breath [facility] (12 sources) Iodinated Contrast Media; Translations: [IODINATED CONTRAST MEDIA] Allergy to substance 06-03-20 19 [facility] (11 sources) Ibuprofen & Diet Manage Prod * Allergy to substance 12-04-19 [facility] Comment on above: Free Text Allergy: I buprofen & Diet Manage Prod *ANALGESICS - ANTI-IN (11 sources) Zafirlukast *ANTIASTHMATIC AND Allergy to substance 12-04-19 [facility] Comment on above: Free Text Allergy: Z afirlukast *ANTIASTHMATIC AND BRONCHODILATOR AGEN (3 sources) DULoxetine Drug Allergy 04-07-20 24 GI intolerance [facility] (3 sources) cefdinir Drug Allergy 01-22-20 25 Vomiting [facility] Comment on above: nausea, vomiting Medications [...] Active take 2 tablets by mo [facility] every four hours as needed [...] as needed Orally every 6 hrs Active [id number] actuat albuterol 0.09 mg/actuat metered dose inhaler (20 sources) beta2-Adrenergic Agonist Start: 01-12-2025 End: 05-27-2025 take 2 puff(s) by inhalation every four hours as needed Albuterol Sulfate 90 mcg/actuation HFA aerosol inhaler Active 0 .ROUTE .COMPLEX 8.5 May 27, 2025 2:24pm INHALE 2 PUFFS EVERY 4 HOURS [...] oral tablet (20 sources) Macrolide Antimicrobial Start: 05-31-2025 Azithromycin 250 mg tablet Active 0 PO .COMPLEX May 31, 2025 2:12pm For 250 mg dose pack: take 500 mg today (day 1), then 250 mg for 4 days (days 2-5) PO Complies with drug therapy Start: 12-24-2024 End: 01-21-2025 Azithromycin 250 mg tablet D iscontinued 0 PO .COMPLEX 6 December 24, 2024 12:00am January 21, 2025 [...] tablet D iscontinued 0 PO .COMPLEX 6 December 20, 2023 12:00am March 03, 2024 12:09pm For 250 mg dose pack: take 500 mg today (day 1), then 250 mg for 4 days (days 2-5) PO Start: 12-20-2023 End: 03-03-2024 Azithromycin Discontinued 0 PO .COMPLEX 6 December 20, 2023 12:00am March 03, 2024 [...] 4 more days for 5 Nov, Active cetirizine hydrochloride 10 mg oral capsule (5 sources) Histamine-1 Receptor Antagonist Start: 10-15-2024 take [...] tablet (20 sources) Biguanide, Sulfonylurea Start: 10-22-2024 End: 04-21-2025 take 2 tablets by mouth twice daily Glipizide-Metfor min 5-500 mg tablet Active 0 .ROUTE .COMPLEX 360 April 21, 2025 10:31am TAKE 2 TABLETS BY MOUTH TWICE DAILY Complies with drug therapy Start: 07-19-2023 End: 10-22-2024 take 2 tablets by mouth twice daily Glipizide-Metformin 5-500 mg tablet Discontinued TAB PO December 04, 2023 12:00am October 22, 2024 11:22am [employer] tab Orally bid; Note: Source Status: Start; Refills: 1; Qty: 360 Tablet; Provider: Sona Young ( ) Start: 07-19-2023 take 2 tablets by mo [facility] in the morning glipiZIDE-metFORMIN (Metaglip) 5-500 MG tablet Take 2 tablets by mouth in the morning and 2 tablets before bedtime. 07/19/2023 Active take 1 tablet by desirae twice daily glipiZIDE-metFORMIN HCl 5-500 MG 1 tablet with a meal Orally bid for 30 days Active predniSONE 10 mg oral tablet (20 sources) Start: 01-21-2025 End: 05-27-2025 take 4 tablets by mouth once daily, then take 3 tablets by mouth once daily, then take 2 tablets by mouth once daily, then take 1 tablet by mouth once daily Prednisone 10 mg tablet Active 10 MG PO As Directed May 27, 2025 8:16am 4 daily x 2 days, 3 [...] 11-23-2022 take 2 tablets by mo [facility] every twenty-four hours predniSONE 20 MG 2 tablets Orally Once a day for 5 days Nov, Active predniSONE 20 MG TAKE 3 TABLETS BY MOUTH DAILY X 3 DAYS, 2 TABLETS DAILY X 3 DAYS, 1 TABLET DAILY X 3 DAYS for 9 Active rosuvastatin calcium 20 mg oral tablet (1 source) HMG-CoA Reductase Inhibitor Start: 03-13-2025 take 1 tablet by mouth once daily Rosuvastatin 20 mg tablet Active 20 MG PO Daily March 13, 2025 12:00am Complies with drug therapy tiZANidine 4 mg oral tablet (5 sources) [...] days May, Active Start: 2023 HYDROcodone-ac etaminophen ([place]) 10-325 MG tablet Start: 2023 take 1 [...] 07-26-2023 atorvastatin ( Lipitor) 20 MG tablet cefdinir 300 mg oral capsule (4 sources) Cephalosporin Antibacterial Start: 12-22-2024 End: 12-24-2024 take 1 capsule by mouth twice daily Cefdinir 300 mg capsule Discontinued 300 MG PO Twice daily December 22, 2024 12:00am December 24, 2024 8:18am dextromethorphan hydrobromide 30 mg / pyrilamine maleate 30 mg oral tablet (5 sources) Uncompetitive S-etrfqs-M-aspartat e Receptor Antagonist, Sigma-1 Agonist Start: 05-26-2021 take 1 tablet by mouth every eight hours [place] DMT 30-30 MG 1 tablet Orally every [...] 8:39am Start: 02-20-2023 take 1 capsule by [facility] every twenty-four hours Cymbalta 60 MG 1 capsule Orally Once a day for 30 days Feb, Active levoFLOXacin 500 mg oral tablet (2 sources) Quinolone Antimicrobial Start: 01-21-2025 End: 02-16-2025 take [...] 24 hr nicotine 0.583 mg/hr transdermal system (2 sources) Cholinergic Nicotinic Agonist Start: 03-03-2024 End: 03-18-2024 [...] omeprazole 40 mg delayed release oral capsule (19 sources) Proton Pump Inhibitor Start: 07-23-2024 End: [...] Start: 05-27-2024 take 1 capsule by mo [facility] in the morning omeprazole (PriLOSEC) 40 mg capsule Indications: Gastroesophageal reflux disease, unspecified whether esophagitis present Take 1 capsule (40 mg total) by mouth in the morning. 60 capsule 05/27/2024 Active ondansetron 4 mg disintegrating oral tablet (20 sources) Serotonin-3 Receptor Antagonist Start: 04-27-2024 ondansetron [...] Date Documented Da te Episodic/Chronic Abdominal hernia (7 sources) Hiatal hernia; Translations: [Diaphragmatic hernia without obstruction or gangrene] 06-17-2024 Episodic Abdominal pain (20 sources) Right upper quadrant pain; Translations: [Right upper quadrant pain] Onset: 9 Episodic Acute bronchitis (9 sources) Acute bronchitis; Translations: [Acute bronchitis due to other specified organisms] Onset: 8 Episodic Allergic reactions (5 sources) Urticaria; Translations: [Urticaria, unspecified] 10-15-2024 Episodic [...] obstructive pulmonary disease and bronchiectasis (20 sources) Bronchitis, not specified as acute or [...] 12-05-2023 Chronic Diseases of mouth; excluding dental (9 sources) Abscess of submandibular region; Translations: [Cellulitis and abscess of mouth] 03-04-2024 Episodic Diseases of white blood cells (20 sources) Leukocytosis; Translations: [Other elevated white blood cell count] Chronic Disorders of teeth and jaw (3 sources) Jaw pain; Translations: [Jaw pain] Episodic Esophageal disorders (20 sources) Gastroesophageal reflux disease without esophagitis; Translations: [Gastro-esophageal reflux disease without esophagitis] Onset: 4 03-26-2024 Chronic Esophageal disorders (10 sources) Disorder of esophagus; Translations: [Disease of esophagus, unspecified] 03-18-2024 Episodic Genitourinary symptoms and ill-defined conditions (3 sources) Blood in urine; Translations: [Hematuria, unspecified] Episodic Hyperplasia of prostate (10 sources) Large prostate ; Translations: [Benign prostatic hyperplasia without lower urinary tract symptoms] 10-15-2024 Chronic Lymphadenitis (11 sources) Acute lymphadenitis; Translations: [Acute lymphadenitis, unspecified] [...] Chronic Other diseases of bladder and urethra (5 sources) Diverticulum of bladder; Translations: [Diverticulum of [...] injuries and conditions due to external causes (5 sources) Contusion; Translations: [Other injury of unspecified body region, initial encounter] 12-22-2024 Episodic Other injuries and conditions due to external causes (2 sources) Other injury of unspecified body region, initial encounter; Translations: [Contusion of unspecified site] 12-22-2024 Episodic Other liver diseases (20 sources) High enzyme level in serum; Translations: [Abnormal levels of other serum enzymes] Episodic Other liver diseases (10 sources) Liver mass; Translations: [Hepatomegaly, not elsewhere classified] Onset: 4 03-26-2024 Episodic Other lower respiratory disease (20 sources) Dyspnea; Translations: [Shortness of breath] Episodic Other lower respiratory disease (2 sources) Chronic cough; Translations: [Chronic cough] 02-16-2025 Episodic Other nervous system disorders (4 sources) [...] right shoulder Episodic Other non-traumatic joint disorders (15 sources) Joint pain; Translations: [Pain in unspecified joint] Onset: 4 12-05-2023 Episodic Other non-traumatic joint disorders (3 sources) Pain in unspecified joint; Translations: [Pain in joint, site unspecified] 12-05-2023 Episodic Other non-traumatic joint disorders (10 sources) Hip pain; Translations: [Pain in right [...] conditions (not mental disorders or infectious disease) (8 sources) Barium swallow abnormal; Translations: [Abnormal findings on diagnostic imaging of other parts of digestive tract] 05-27-2024 Episodic Other skin disorders (12 sources) Mass of submandibular region; Translations: [Localized [...] (suspected) exposure to asbestos] Onset: 5 Episodic Screening and history of mental health and substance abuse codes (1 source) Ex-smoker; Translations: [Personal history of nicotine dependence] 02-16-2025 Episodic Spondylosis; intervertebral disc disorders; other back [...] 10-05-2015 Episodic Other aftercare (1 source) 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; Translations: [OTH CORRECTION CURRENT [...] Lactate [Moles/Vol] 2.6 mmol/L Critically high 0.4-2.0 [facility] Comment on above: RESULTS CALLED TO GAURI SRINIVASAN RN at 0220 Basophils Auto (Bld) [#/Vol] on 12-22-2024 Basophils (Bld) [#/Vol] Automated basophil count 0.0-0.1 [facility] Basophils (Bld) [#/Vol] 0.0 10 3/uL 0.0-0.1 [facility] Basophils/100 WBC Auto (Bld) on 12-22-2024 Basophils/100 WBC (Bld) Automated basophil % 0.2-2.0 [facility] Basophils/100 WBC (Bld) 0.6 % 0.2-2.0 [facility] Basophils/100 WBC Manual cnt (Bld)on 12-22-2024 Basophils/100 WBC (Bld) Basophils/100 leukocytes in Blood by Manual count Low 0.2-2.0 [facility] Basophils/100 WBC (Bld) 0.0 % Low 0.2-2.0 [facility] Eosinophils/100 WBC Auto (Bl d)on 12-22-2024 Eosinophils/100 WBC (Bld) Automated eosinophil % 0.9-7.0 [facility] Eosinophils/100 WBC (Bld) 2.0 % 0.9-7.0 [facility] Eosinophils/100 WBC Manual c nt (Bld)on 12-22-2024 Eosinophils/100 WBC (Bld) Eosinophils/100 leukocytes in Blood by Manual count Low 0.9-7.0 [facility] Eosinophils/100 WBC (Bld) 0.0 % Low 0.9-7.0 [facility] Erythrocyte distribution wid th Auto (RBC) [Ratio]on 12-22-2024 Erythrocyte distribution width (RBC) [Ratio] 13.5 % 11.0-15.0 [facility] Estimated glomerular filtrat ion rate (GFR) non- Americanon 12-22-2024 GFR/1.73 sq M.predicted among non-blacks MDRD (S/P/Bld) [Vol rate/Area] Estimated glomerular filtration rate (GFR) non- Low >=60 mL/min/1.73m 2 [facility] GFR/1.73 sq M.predicted among non-blacks MDRD (S/P/Bld) [Vol rate/Area] 59 mL/min/{1.73_m2} Low >=60 mL/min/1.73m 2 [facility] Globulin Calc (S) [Mass/Vol] on 12-22-2024 Globulin (S) [Mass/Vol] Serum globulin measurement by calculation (mass/volume) [facility] Globulin (S) [Mass/Vol] 3.6 g/dL [facility] Glucose mean value [Mass/vol ume] in Blood Estimated from glycated hemoglobinon 12-22-2024 Average glucose Estimated from glycated hemoglobin (Bld) [Mass/Vol] Glucose mean value [Mass/volume] in Blood Estimated from glycated hemoglobin [facility] Average glucose Estimated from glycated hemoglobin (Bld) [Mass/Vol] 192 mg/dL [facility] Hematocrit Auto (Bld) [Volum e fraction]on 12-22-2024 Hematocrit (Bld) [Volume fraction] 56.3 % High 42.0-54.0 [facility] Hemoglobin A1c percentageon 12-22-2024 HbA1c (Bld) [Mass fraction] Hemoglobin A1c percentage High 4.5-6.2 [facility] Comment on above: ADA RECOMMENDED LIMI T 4.0 - 6.0ADA THERAPEUTIC TARGET < 7.0ACTION SUGGESTED> 7.0 HbA1c (Bld) [Mass fraction] 8.3 % High 4.5-6.2 [facility] Comment on above: ADA RECOMMENDED LIMI T 4.0 - 6.0ADA THERAPEUTIC TARGET < 7.0ACTION SUGGESTED> 7.0 Hemoglobin [Mass/volume] in Bloodon 12-22-2024 Hemoglobin (Bld) [Mass/Vol] 18.9 g/dL High 14.0-18.0 [facility] Laboratory - Chemistry and C hemistry - challengeon 12-22-2024 Albumin [Mass/Vol] 4.3 g/dL 3.4-5.0 [facility] ALP [Catalytic activity/Vol] 121 U/L High 46-116 [facility] ALT [Catalytic activity/Vol] 46 U/L 16-63 [facility] AST [Catalytic activity/Vol] 17 U/L 15-37 [facility] Bilirubin [Mass/Vol] 0.4 mg/dL 0.2-1.0 [facility] Calcium [Mass/Vol] 9.7 mg/dL 8.5-10.1 [facility] Chloride [Moles/Vol] 99 mmol/L 98-107 [facility] CO2 [Moles/Vol] 21.7 mmol/L 21.0-32.0 [facility] Creatinine [Mass/Vol] 1.24 mg/dL 0.70-1.30 [facility] GFR/1.73 sq M.predicted MDRD (S/P/Bld) [Vol rate/Area] mL/min/{1.73_m2} >=60 mL/min/1.73m 2 [facility] Glucose [Mass/Vol] 278 mg/dL High 74-106 [facility] Lactate [Moles/Vol] 2.3 mmol/L Critically high 0.4-2.0 [facility] Comment on above: RESULTS CALLED TO DIONE CABALLERO RN at 0009 Lipase [Catalytic activity/Vol] 31.0 U/L 16.0-77.0 [facility] Potassium [Moles/Vol] 4.6 mmol/L 3.5-5.1 [facility] Protein [Mass/Vol] 7.9 g/dL 6.4-8.2 [facility] Sodium [Moles/Vol] 133 mmol/L Low 136-145 [facility] Urea nitrogen [Mass/Vol] 15.0 mg/dL 7.0-18.0 [facility] Urea nitrogen/Creatinine [Mass ratio] 12.1 mg/mg [facility] TSH Qn 1.532 m[IU]/L 0.358-3.740 [facility] Laboratory - Hematology and Cell countson 12-22-2024 Lymphocytes/100 WBC (Bld) 1.0 % Low 20.5-60.0 [facility] Monocytes/100 WBC (Bld) 7.0 % 1.7-12.0 [facility] Immature granulocytes/100 WBC (Bld) 0.2 % 0.0-0.5 [facility] Leukocytes [#/volume] correc jean claude for nucleated erythrocytes in Blood by Automated counon 12-22-2024 WBC corrected for nucl RBC Auto (Bld) [#/Vol] 14.4 10 3/uL High 4.0-11.0 [facility] Lymphocytes Auto (Bld) [#/Vo l]on 12-22-2024 Lymphocytes (Bld) [#/Vol] Lymphocytes [#/volume] in Blood by Automated count 1.2-3.8 [facility] Lymphocytes (Bld) [#/Vol] 2.1 10 3/uL 1.2-3.8 [facility] Lymphocytes/100 WBC Auto (Bl d)on 12-22-2024 Lymphocytes/100 WBC (Bld) Lymphocytes/100 leukocytes in Blood by Automated count 20.5-60.0 [facility] Lymphocytes/100 WBC (Bld) 31.7 % 20.5-60.0 [facility] MCH Auto (RBC) [Entitic mass ]on 12-22-2024 MCH (RBC) [Entitic mass] 29.7 pg 25.9-34.0 [facility] MCHC Auto (RBC) [Mass/Vol]on 12-22-2024 MCHC (RBC) [Mass/Vol] 33.6 g/dL 29.9-35.2 [facility] MCV Auto (RBC) [Entitic vol] on 12-22-2024 MCV (RBC) [Entitic vol] 88.5 fL 80.0-94.0 [facility] Microalbumin [Mass/volume] i n Urineon 12-22-2024 Albumin DL <= 20 mg/L (U) [Mass/Vol] Microalbumin [Mass/volume] in Urine <=30.0 [facility] Albumin DL <= 20 mg/L (U) [Mass/Vol] 2.0 mg/dL <=30.0 [facility] Monocytes Auto (Bld) [#/Vol] on 12-22-2024 Monocytes (Bld) [#/Vol] Automated blood monocyte count 0.3-0.8 [facility] Monocytes (Bld) [#/Vol] 0.7 10 3/uL 0.3-0.8 [facility] Monocytes/100 WBC Auto (Bld) on 12-22-2024 Monocytes/100 WBC (Bld) Automated monocyte % 1.7-12.0 [facility] Monocytes/100 WBC (Bld) 10.7 % 1.7-12.0 [facility] Neutrophils Auto (Bld) [#/Vo l]on 12-22-2024 Neutrophils (Bld) [#/Vol] Neutrophils [#/volume] in Blood by Automated count 1.4-6.5 [facility] Neutrophils (Bld) [#/Vol] 3.6 10 3/uL 1.4-6.5 [facility] Neutrophils/100 WBC Auto (Bl d)on 12-22-2024 Neutrophils/100 WBC (Bld) Automated neutrophil % 43.0-75.0 [facility] Neutrophils/100 WBC (Bld) 54.8 % 43.0-75.0 [facility] No Panel Informationon 12-22 Absolute Basophils (Manual) 0.00 10 3/uL 0.00-0.10 [facility] Eosinophils # (Manual) 0.00 10 3/uL 0.00-0.70 [facility] Lymphocytes # (Manual) 0.14 10 3/uL Low 1.20-3.80 [facility] Monocytes # (Manual) 1.00 10 3/uL High 0.30-0.80 [facility] Segmented Neutrophils # (Manual) 13.24 10 3/uL High 1.4-6.5 [facility] Troponin I High Sensitivity <4.0 pg/mL Low 4.0-76.1 [facility] Comment on above: CUT-OFF POINTS HAVE [...] Eosinophils # (Auto) 0.1 10 3/uL 0.0-0.7 [facility] Immature Granulocyte # (Auto) 0.01 10 3/uL 0.00-0.03 [facility] Prostate Specific Antigen Screen 0.89 ng/mL <=4.00 [facility] Urine Random Creatinine 79.28 mg/dL 20.00-300.00 [facility] Platelet mean volume Auto (B ld) [Entitic vol]on 12-22-2024 Platelet mean volume (Bld) [Entitic vol] 9.4 fL Low 9.5-13.5 [facility] Platelets Auto (Bld) [#/Vol] on 12-22-2024 Platelets (Bld) [#/Vol] 319 10 3/uL 150-450 [facility] RBC Auto (Bld) [#/Vol]on RBC (Bld) [#/Vol] 6.36 10 6/uL High 4.70-6.10 [facility] Segmented neutrophils/100 WB C Manual cnt (Bld)on 12-22-2024 Segmented neutrophils/100 WBC (Bld) Manual blood segmented neutrophils/100 leukocytes High 43.0-75.0 [facility] Segmented neutrophils/100 WBC (Bld) 92.0 % High 43.0-75.0 [facility] Serum or plasma albumin/glob ulin mass ratioon 12-22-2024 Albumin/Globulin [Mass ratio] Serum or plasma albumin/globulin mass ratio [facility] Albumin/Globulin [Mass ratio] 1.2 {ratio} [facility] Serum or plasma anion gap de terminationon 12-22-2024 Anion gap [Moles/Vol] Serum or plasma anion gap determination [facility] Anion gap [Moles/Vol] 16.9 mmol/L Fi [facility] Urine microalbumin/creatinin e mass ratioon 12-22-2024 Albumin/Creatinine DL <= 20 mg/L (U) [Mass ratio] Urine microalbumin/creatin ine mass ratio 0.0-29.9 [facility] Comment on above: NO MICROALBUMINURIA 0-29 MG/GCLINICAL MICROALBUMINURIA 30-300 MG/GMACROALBUMINURIA >300 MG/G Albumin/Creatinine DL <= 20 mg/L (U) [Mass ratio] 25.2 mg/g 0.0-29.9 [facility] Comment on above: NO MICROALBUMINURIA 0-29 MG/GCLINICAL MICROALBUMINURIA 30-300 MG/GMACROALBUMINURIA >300 MG/G CHEMISTRYOrdered By: Sonia Brandt on 11-04-2024 HbA1c (Bld) [Mass fraction] 9.5 % High <=5.9% [facility] [employer] [id number] 11-04-2024 HbA1c (Bld) [Mass fraction] 9.5 % High <=5.9 [facility] Comment on above: Performed By: #### [id number] #### [facility] [address] [place] [address] Basophils Auto (Bld) [#/Vol] on 10-11-2024 Basophils (Bld) [#/Vol] Automated basophil count 0.0-0.1 [facility] Basophils/100 WBC Auto (Bld) on 10-11-2024 Basophils/100 WBC (Bld) Automated basophil % 0.2-2.0 [facility] Eosinophils/100 WBC Auto (Bl d)on 10-11-2024 Eosinophils/100 WBC (Bld) Automated eosinophil % 0.9-7.0 [facility] Erythrocyte distribution wid th Auto (RBC) [Ratio]on 10-11-2024 Erythrocyte distribution width (RBC) [Ratio] Erythrocyte distribution width [Ratio] by Automated count 11.0-15.0 [facility] Estimated glomerular filtrat ion rate (GFR) non- Americanon 10-11-2024 GFR/1.73 sq M.predicted among non-blacks MDRD (S/P/Bld) [Vol rate/Area] Estimated glomerular filtration rate (GFR) non- >=60 mL/min/1.73m 2 [facility] Globulin Calc (S) [Mass/Vol] on 10-11-2024 Globulin (S) [Mass/Vol] Serum globulin measurement by calculation (mass/volume) [facility] Hematocrit Auto (Bld) [Volum e fraction]on 10-11-2024 Hematocrit (Bld) [Volume fraction] Hematocrit [Volume Fraction] of Blood by Automated count 42.0-54.0 [facility] Hemoglobin [Mass/volume] in Bloodon 10-11-2024 Hemoglobin (Bld) [Mass/Vol] Hemoglobin [Mass/volume] in Blood 14.0-18.0 [facility] Laboratory - Chemistry and C hemistry - challengeon 10-11-2024 Albumin [Mass/Vol] 3.5 g/dL 3.4-5.0 [facility] ALP [Catalytic activity/Vol] 102 U/L 46-116 [facility] ALT [Catalytic activity/Vol] 39 U/L 16-63 [facility] AST [Catalytic activity/Vol] 13 U/L Low 15-37 [facility] Bilirubin [Mass/Vol] 0.2 mg/dL 0.2-1.0 [facility] Calcium [Mass/Vol] 9.1 mg/dL 8.5-10.1 [facility] Chloride [Moles/Vol] 102 mmol/L 98-107 [facility] CO2 [Moles/Vol] 28.4 mmol/L 21.0-32.0 [facility] Creatinine [Mass/Vol] 0.97 mg/dL 0.70-1.30 [facility] GFR/1.73 sq M.predicted MDRD (S/P/Bld) [Vol rate/Area] mL/min/{1.73_m2} >=60 mL/min/1.73m 2 [facility] Glucose [Mass/Vol] 317 mg/dL High 74-106 [facility] Potassium [Moles/Vol] 4.3 mmol/L 3.5-5.1 [facility] Protein [Mass/Vol] 6.7 g/dL 6.4-8.2 [facility] Sodium [Moles/Vol] 136 mmol/L 136-145 [facility] Urea nitrogen [Mass/Vol] 14.0 mg/dL 7.0-18.0 [facility] Urea nitrogen/Creatinine [Mass ratio] 14.4 mg/mg [facility] - Hematology and Cell countson 10-11-2024 Immature granulocytes/100 WBC (Bld) 0.2 % 0.0-0.5 [facility] Leukocytes [#/volume] correc jean claude for nucleated erythrocytes in Blood by Automated counon 10-11-2024 WBC corrected for nucl RBC Auto (Bld) [#/Vol] Leukocytes [#/volume] corrected for nucleated erythrocytes in Blood by Automated coun 4.0-11.0 [facility] Lymphocytes Auto (Bld) [#/Vo l]on 10-11-2024 Lymphocytes (Bld) [#/Vol] Lymphocytes [#/volume] in Blood by Automated count 1.2-3.8 [facility] Lymphocytes/100 WBC Auto (Bl d)on 10-11-2024 Lymphocytes/100 WBC (Bld) Lymphocytes/100 leukocytes in Blood by Automated count 20.5-60.0 [facility] MCH Auto (RBC) [Entitic mass ]on 10-11-2024 MCH (RBC) [Entitic mass] MCH [Entitic mass] by Automated count 25.9-34.0 [facility] MCHC Auto (RBC) [Mass/Vol]on 10-11-2024 MCHC (RBC) [Mass/Vol] MCHC [Mass/volume] by Automated count 29.9-35.2 [facility] MCV Auto (RBC) [Entitic vol] on 10-11-2024 MCV (RBC) [Entitic vol] MCV [Entitic volume] by Automated count 80.0-94.0 [facility] Monocytes Auto (Bld) [#/Vol] on 10-11-2024 Monocytes (Bld) [#/Vol] Automated blood monocyte count 0.3-0.8 [facility] Monocytes/100 WBC Auto (Bld) on 10-11-2024 Monocytes/100 WBC (Bld) Automated monocyte % 1.7-12.0 [facility] Neutrophils Auto (Bld) [#/Vo l]on 10-11-2024 Neutrophils (Bld) [#/Vol] Neutrophils [#/volume] in Blood by Automated count 1.4-6.5 [facility] Neutrophils/100 WBC Auto (Bl d)on 10-11-2024 Neutrophils/100 WBC (Bld) Automated neutrophil % 43.0-75.0 [facility] No Panel Informationon 10-11 Eosinophils # (Auto) 0.2 10 3/uL 0.0-0.7 [facility] Immature Granulocyte # (Auto) 0.02 10 3/uL 0.00-0.03 [facility] Platelet mean volume Auto (B ld) [Entitic vol]on 10-11-2024 Platelet mean volume (Bld) [Entitic vol] Platelet mean volume [Entitic volume] in Blood by Automated count Low 9.5-13.5 [facility] Platelets Auto (Bld) [#/Vol] on 10-11-2024 Platelets (Bld) [#/Vol] Platelets [#/volume] in Blood by Automated count 150-450 [facility] RBC Auto (Bld) [#/Vol]on RBC (Bld) [#/Vol] Erythrocytes [#/volume] in Blood by Automated count 4.70-6.10 [facility] Serum or plasma albumin/glob ulin mass ratioon 10-11-2024 Albumin/Globulin [Mass ratio] Serum or plasma albumin/globulin mass ratio [facility] Serum or plasma anion gap de terminationon 10-11-2024 Anion gap [Moles/Vol] Serum or plasma anion gap determination [facility] Estimated glomerular filtrat ion rate (GFR) non- Americanon 08-26-2024 GFR/1.73 sq M.predicted among non-blacks MDRD (S/P/Bld) [Vol rate/Area] Estimated glomerular filtration rate (GFR) non- >=60 mL/min/1.73m 2 [facility] - Chemistry and C hemistry - challengeon 08-26-2024 Creatinine [Mass/Vol] 1.02 mg/dL 0.70-1.30 [facility] GFR/1.73 sq M.predicted MDRD (S/P/Bld) [Vol rate/Area] mL/min/{1.73_m2} >=60 mL/min/1.73m 2 [facility] EGDon 06-03-2024 Thubrikar Aortic Valve [facility] No Panel InformationOrdered By: Rosalia Shea on 06-03-2024 [facility] No Panel InformationOrdered By: Bill Henry on 06-03-2024 Miscellaneous Pathology Test See comment [facility] Comment on above: See report. Scanned copy available in EMR. No Panel Informationon 06-03 Helicobacter pylori Urease Test Negative [facility] Pathology Request for Lab Co rpon 06-03-2024 Pathology Request for Lab Raymond Normal [facility] Comment on above: Order Comment: PATHO LOGY GI SPECIMEN Result Comment: See report. Scanned copy available in EMR. PERFORMED BY: [place] [address] PATHOLOGIST PALLET SORTER JON PONCE M.D. Performed By: #### P ATH TO [facility] #### [address] CNPMai 05-14-2024 CNPN Telephone ([id number]) NICHOLAS CRAIG ([id number]) 1960 Date Time Provider Department 05/14/24 AMEYA MERAZ [id number] During your visit today, we recorded the following information about you: Keily Martines 05/14/2024 1:11 PM Signed Referral was sent from [facility] for new consult with Dr Meraz Please see below and advise Vivian Morley 05/15/2024 11:54 AM Addendum Consult from Dr. 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] Problem List As Of Date: 05/14/2024 (None) Encounter Status:Closed by VIVIAN MORLEY on 05/21/24 Normal [facility] Basophils Auto (Bld) [#/Vol] on 02-27-2024 Basophils (Bld) [#/Vol] 0.1 10 3/uL 0.0-0.1 [facility] Basophils/100 WBC Auto (Bld) on 02-27-2024 Basophils/100 WBC (Bld) 0.5 % 0.2-2.0 [facility] Eosinophils/100 WBC Auto (Bl d)on 02-27-2024 Eosinophils/100 WBC (Bld) 2.5 % 0.9-7.0 [facility] Erythrocyte distribution wid th Auto (RBC) [Ratio]on 02-27-2024 Erythrocyte distribution width (RBC) [Ratio] 13.5 % 11.0-15.0 [facility] Estimated glomerular filtrat ion rate (GFR) non- Americanon 02-27-2024 GFR/1.73 sq M.predicted among non-blacks MDRD (S/P/Bld) [Vol rate/Area] mL/min/{1.73_m2} >=60 [facility] Hematocrit Auto (Bld) [Volum e fraction]on 02-27-2024 Hematocrit (Bld) [Volume fraction] 47.1 % 42.0-54.0 [facility] Hemoglobin [Mass/volume] in Bloodon 02-27-2024 Hemoglobin (Bld) [Mass/Vol] 15.5 g/dL 14.0-18.0 [facility] - Chemistry and C hemistry - challengeon 02-27-2024 Calcium [Mass/Vol] 8.9 mg/dL 8.5-10.1 [facility] Chloride [Moles/Vol] 98 mmol/L 98-107 [facility] CO2 [Moles/Vol] 28.1 mmol/L 21.0-32.0 [facility] Creatinine [Mass/Vol] 0.86 mg/dL 0.70-1.30 [facility] GFR/1.73 sq M.predicted MDRD (S/P/Bld) [Vol rate/Area] mL/min/{1.73_m2} >=60 [facility] Glucose [Mass/Vol] 237 mg/dL High 74-106 [facility] Lactate [Moles/Vol] 1.3 mmol/L 0.4-2.0 [facility] Potassium [Moles/Vol] 4.4 mmol/L 3.5-5.1 [facility] Sodium [Moles/Vol] 130 mmol/L Low 136-145 [facility] Urea nitrogen [Mass/Vol] 21.0 mg/dL High 7.0-18.0 [facility] Urea nitrogen/Creatinine [Mass ratio] 24.4 mg/mg [facility] - Hematology and Cell countson 02-27-2024 Immature granulocytes/100 WBC (Bld) 0.3 % 0.0-0.5 [facility] Leukocytes [#/volume] correc jean claude for nucleated erythrocytes in Blood by Automated counon 02-27-2024 WBC corrected for nucl RBC Auto (Bld) [#/Vol] 9.3 10 3/uL 4.0-11.0 [facility] Lymphocytes Auto (Bld) [#/Vo l]on 02-27-2024 Lymphocytes (Bld) [#/Vol] 2.4 10 3/uL 1.2-3.8 [facility] Lymphocytes/100 WBC Auto (Bl d)on 02-27-2024 Lymphocytes/100 WBC (Bld) 25.5 % 20.5-60.0 [facility] MCH Auto (RBC) [Entitic mass ]on 02-27-2024 MCH (RBC) [Entitic mass] 29.1 pg 25.9-34.0 [facility] MCHC Auto (RBC) [Mass/Vol]on 02-27-2024 MCHC (RBC) [Mass/Vol] 32.9 g/dL 29.9-35.2 [facility] MCV Auto (RBC) [Entitic vol] on 02-27-2024 MCV (RBC) [Entitic vol] 88.5 fL 80.0-94.0 [facility] Monocytes Auto (Bld) [#/Vol] on 02-27-2024 Monocytes (Bld) [#/Vol] 1.1 10 3/uL High 0.3-0.8 [facility] Monocytes/100 WBC Auto (Bld) on 02-27-2024 Monocytes/100 WBC (Bld) 12.0 % 1.7-12.0 [facility] Neutrophils Auto (Bld) [#/Vo l]on 02-27-2024 Neutrophils (Bld) [#/Vol] 5.5 10 3/uL 1.4-6.5 [facility] Neutrophils/100 WBC Auto (Bl d)on 02-27-2024 Neutrophils/100 WBC (Bld) 59.2 % 43.0-75.0 [facility] No Panel Informationon 02-26 Eosinophils # (Auto) 0.2 10 3/uL 0.0-0.7 [facility] Immature Granulocyte # (Auto) 0.03 10 3/uL 0.00-0.03 [facility] Platelet mean volume Auto (B ld) [Entitic vol]on 02-27-2024 Platelet mean volume (Bld) [Entitic vol] 8.8 fL Low 9.5-13.5 [facility] Platelets Auto (Bld) [#/Vol] on 02-27-2024 Platelets (Bld) [#/Vol] 288 10 3/uL 150-450 [facility] RBC Auto (Bld) [#/Vol]on RBC (Bld) [#/Vol] 5.32 10 6/uL 4.70-6.10 [facility] Serum or plasma anion gap de terminationon 02-27-2024 Anion gap [Moles/Vol] 8.3 mmol/L [facility] Basophils Auto (Bld) [#/Vol] on 12-05-2023 Basophils (Bld) [#/Vol] 0.1 10 3/uL 0.0-0.1 [facility] Basophils/100 WBC Auto (Bld) on 12-05-2023 Basophils/100 WBC (Bld) 0.9 % 0.2-2.0 [facility] Eosinophils/100 WBC Auto (Bl d)on 12-05-2023 Eosinophils/100 WBC (Bld) 2.7 % 0.9-7.0 [facility] Erythrocyte distribution wid th Auto (RBC) [Ratio]on 12-05-2023 Erythrocyte distribution width (RBC) [Ratio] 13.1 % 11.0-15.0 [facility] Estimated glomerular filtrat ion rate (GFR) non- Americanon 12-05-2023 GFR/1.73 sq M.predicted among non-blacks MDRD (S/P/Bld) [Vol rate/Area] mL/min/{1.73_m2} >=60 [facility] Glucose mean value [Mass/vol ume] in Blood Estimated from glycated hemoglobinon 12-05-2023 Average glucose Estimated from glycated hemoglobin (Bld) [Mass/Vol] 171 mg/dL [facility] Hematocrit Auto (Bld) [Volum e fraction]on 12-05-2023 Hematocrit (Bld) [Volume fraction] 48.9 % 42.0-54.0 [facility] Hemoglobin [Mass/volume] in Bloodon 12-05-2023 Hemoglobin (Bld) [Mass/Vol] 16.0 g/dL 14.0-18.0 [facility] - Chemistry and C hemistry - challengeon 12-05-2023 Calcium [Mass/Vol] 9.7 mg/dL 8.5-10.1 [facility] Chloride [Moles/Vol] 102 mmol/L 98-107 [facility] CO2 [Moles/Vol] 27.6 mmol/L 21.0-32.0 [facility] Creatinine [Mass/Vol] 1.01 mg/dL 0.70-1.30 [facility] GFR/1.73 sq M.predicted MDRD (S/P/Bld) [Vol rate/Area] mL/min/{1.73_m2} >=60 [facility] Glucose [Mass/Vol] 156 mg/dL High 74-106 [facility] Potassium [Moles/Vol] 4.4 mmol/L 3.5-5.1 [facility] Sodium [Moles/Vol] 139 mmol/L 136-145 [facility] Urea nitrogen [Mass/Vol] 13.0 mg/dL 7.0-18.0 [facility] Urea nitrogen/Creatinine [Mass ratio] 12.9 mg/mg [facility] - Hematology and Cell countson 12-05-2023 ESR (Bld) [Velocity] 17 mm/h <=20 [facility] HbA1c (Bld) [Mass fraction] 7.6 % High 4.5-6.2 [facility] Comment on above: ADA RECOMMENDED LIMI T 4.0 - 6.0ADA THERAPEUTIC TARGET < 7.0ACTION SUGGESTED> 7.0 Immature granulocytes/100 WBC (Bld) 0.4 % 0.0-0.5 [facility] Leukocytes [#/volume] correc jean claude for nucleated erythrocytes in Blood by Automated counon 12-05-2023 WBC corrected for nucl RBC Auto (Bld) [#/Vol] 7.7 10 3/uL 4.0-11.0 [facility] Lymphocytes Auto (Bld) [#/Vo l]on 12-05-2023 Lymphocytes (Bld) [#/Vol] 2.4 10 3/uL 1.2-3.8 [facility] Lymphocytes/100 WBC Auto (Bl d)on 12-05-2023 Lymphocytes/100 WBC (Bld) 31.2 % 20.5-60.0 [facility] MCH Auto (RBC) [Entitic mass ]on 12-05-2023 MCH (RBC) [Entitic mass] 28.5 pg 25.9-34.0 [facility] MCHC Auto (RBC) [Mass/Vol]on 12-05-2023 MCHC (RBC) [Mass/Vol] 32.7 g/dL 29.9-35.2 [facility] MCV Auto (RBC) [Entitic vol] on 12-05-2023 MCV (RBC) [Entitic vol] 87.0 fL 80.0-94.0 [facility] Monocytes Auto (Bld) [#/Vol] on 12-05-2023 Monocytes (Bld) [#/Vol] 0.7 10 3/uL 0.3-0.8 [facility] Monocytes/100 WBC Auto (Bld) on 12-05-2023 Monocytes/100 WBC (Bld) 9.5 % 1.7-12.0 [facility] Neutrophils Auto (Bld) [#/Vo l]on 12-05-2023 Neutrophils (Bld) [#/Vol] 4.2 10 3/uL 1.4-6.5 [facility] Neutrophils/100 WBC Auto (Bl d)on 12-05-2023 Neutrophils/100 WBC (Bld) 55.3 % 43.0-75.0 [facility] No Panel Informationon 12-04 Eosinophils # (Auto) 0.2 10 3/uL 0.0-0.7 [facility] Immature Granulocyte # (Auto) 0.03 10 3/uL 0.00-0.03 [facility] Platelet mean volume Auto (B ld) [Entitic vol]on 12-05-2023 Platelet mean volume (Bld) [Entitic vol] 8.6 fL Low 9.5-13.5 [facility] Platelets Auto (Bld) [#/Vol] on 12-05-2023 Platelets (Bld) [#/Vol] 330 10 3/uL 150-450 [facility] RBC Auto (Bld) [#/Vol]on RBC (Bld) [#/Vol] 5.62 10 6/uL 4.70-6.10 [facility] Serum or plasma anion gap de terminationon 12-05-2023 Anion gap [Moles/Vol] 13.8 mmol/L [facility] Magnesiumon 07-02-2023 Magnesium [Mass/Vol] 2.0304142 mg/dL Normal 1.8- 2.4 mg/dL [employer] Other Magnesium see note [employer] [facility] [employer]olutions24 Other XR CHEST 2 Von 11-24-2022 XR [...] by: RUBI TAVERAS Date: 2022-11-24 17:17 Normal [facility] CT LUNG CANCER SCREENINGon 1 [...] 06-07-2022 BASO # 0.1 103/ul Normal 0.0-0.1 [facility] Comment on above: Performed By: #### C BC #### [facility] [address] [place] [address] Dr. Eran Chacon Basophils/100 WBC (Bld) 0.6 % Normal 0.2-2.0 [facility] Comment on above: Performed By: #### C BC #### [facility] [address] [place] [address] Dr. Eran Chacon EO # 0.3 103/ul Normal 0.0-0.7 [facility] Comment on above: Performed By: #### C BC #### [facility] [address] [place] [address] Dr. Eran Chacon Eosinophils/100 WBC (Bld) 3.3 % Normal 0.9-7.0 [facility] Comment on above: Performed By: #### C BC #### [facility] [address] [place] [address] Dr. Eran Chacon Erythrocyte distribution width (RBC) [Ratio] 12.9 % Normal 11.0-15.0 [facility] Comment on above: Performed By: #### C BC #### [facility] [address] [place] [address] Dr. Eran Chacon Hematocrit (Bld) [Volume fraction] 47.7 % Normal 42.0-54.0 [facility] Comment on above: Performed By: #### C BC #### [facility] [address] [place] [address] Dr. Eran Chacon Hemoglobin (Bld) [Mass/Vol] 15.9 g/dL Normal 14.0-18.0 [facility] Comment on above: Performed By: #### C BC #### [facility] [address] [place] [address] Dr. Eran Chacon IG # 0.02 10e3/ul Normal 0.00-0.03 [facility] Comment on above: Performed By: #### C BC #### [facility] [address] [place] [address] Dr. Eran Chacon IG % 0.2 % Normal 0.0-0.5 [facility] Comment on above: Performed By: #### C BC #### [facility] [address] [place] [address] Dr. Eran Chacon LYMPH # 3.4 103/ul Normal 1.2-3.8 [facility] Comment on above: Performed By: #### C BC #### [facility] [address] [place] [address] Dr. Eran Chacon Lymphocytes/100 WBC (Bld) 34.5 % Normal 20.5-60.0 [facility] Comment on above: Performed By: #### C BC #### [facility] [address] [place] [address] Dr. Eran Chacon MANUAL DIFF REQ NO Normal [facility] Comment on above: Performed By: #### C BC #### [facility] [address] [place] [address] Dr. Eran Chacon MCH (RBC) [Entitic mass] 29.6 pg Normal 25.9-34.0 [facility] Comment on above: Performed By: #### C BC #### [facility] [address] [place] [address] Dr. Eran Chacon MCHC (RBC) [Mass/Vol] 33.3 g/dL Normal 29.9-35.2 [facility] Comment on above: Performed By: #### C BC #### [facility] [address] [place] [address] Dr. Eran Chacon MCV (RBC) [Entitic vol] 88.8 fL Normal 80.0-94.0 [facility] Comment on above: Performed By: #### C BC #### [facility] [address] [place] [address] Dr. Eran Chacon MONO # 0.9 103/ul Critically high 0.3-0.8 [facility] Comment on above: Performed By: #### C BC #### [facility] [address] [place] [address] Dr. Eran Chacon Monocytes/100 WBC (Bld) 9.3 % Normal 1.7-12.0 [facility] Comment on above: Performed By: #### C BC #### [facility] [address] [place] [address] Dr. Eran Chacon NEUT # 5.2 103/ul Normal 1.4-6.5 [facility] Comment on above: Performed By: #### C BC #### [facility] [address] [place] [address] Dr. Eran Chacon Neutrophils/100 WBC (Bld) 52.1 % Normal 43.0-75.0 [facility] Comment on above: Performed By: #### C BC #### [facility] [address] [place] [address] Dr. Eran Chacon Platelet mean volume (Bld) [Entitic vol] 8.8 fL Critically low 9.5-13.5 [facility] Comment on above: Performed By: #### C BC #### [facility] [address] [place] [address] Dr. Eran Chacon PLT 287 103/ul Normal 150-450 [facility] Comment on above: Performed By: #### C BC #### [facility] [address] [place] [address] Dr. Eran Chacon RBC 5.37 106/ul Normal 4.70-6.10 [facility] Comment on above: Performed By: #### C BC #### [facility] [address] [place] [address] Dr. Eran Chacon WBC 9.9 103/ul Normal 4.0-11.0 [facility] Comment on above: Performed By: #### C BC #### [facility] [address] [place] [address] Dr. Eran Chacon ER URINE PROFILEon 2 Bilirubin Ql (U) Negative Normal NEGATIVE [facility] Comment on above: Performed By: #### Med RUR UMICRO #### [facility] [address] [place] [address] Dr. Eran Chacon Clarity (U) CLEAR Normal CLEAR [facility] Comment on above: Performed By: #### Med RUR, UMICRO #### [facility] [address] [place] [address] Dr. Eran Chacon Color (U) YELLOW Normal YELLOW [facility] Comment on above: Performed By: #### Med SHER UMICRO #### [facility] [address] [place] [address] Dr. Eran GATES A micrscopic examination will be performed if indicated. Normal [facility] Comment on above: Performed By: #### Med SHER UMICRO #### [facility] [address] [place] [address] Dr. Eran Chacon Glucose Ql (U) 500 mg/dl Abnormal NEGATIVE [facility] Comment on above: Performed By: #### Med RUR, UMICRO #### [facility] [address] [place] [address] Dr. Eran Chacon Hemoglobin Ql (U) TRACE-INTACT Abnormal NEGATIVE [facility] Comment on above: Performed By: #### E RUR, UMICRO #### [facility] [address] [place] [address] Dr. Eran Chacon Ketones Ql (U) Negative Normal NEGATIVE [facility] Comment on above: Performed By: #### HANNA BATES #### [facility] [address] [place] [address] Dr. Eran Chacon LEUKOCYTES Negative Normal NEGATIVE [facility] Comment on above: Performed By: #### BISHNU BATESRO #### [facility] [address] [place] [address] Dr. Eran Chacon Nitrite Ql (U) Negative Normal NEGATIVE [facility] Comment on above: Performed By: #### HANNA BATES #### [facility] [address] [place] [address] Dr. Eran Chacon pH (U) 6.0 [pH] Normal 5-9 [facility] Comment on above: Performed By: #### HANNA BATES #### [facility] [address] [place] [address] Dr. Eran Chacon SPEC GRAVITY 1.025 Normal 1.005-<=1.02 5 [facility] Comment on above: Performed By: #### BISHNU BATESRO #### [facility] [address] [place] [address] Dr. Eran Chacon UA PROTEIN Negative Normal NEGATIVE/ TRACE [facility] Comment on above: Performed By: #### HANNA BATES #### [facility] [address] [place] [address] Dr. Eran Chacon UR MICRO IND INDICATED Normal [facility] Comment on above: Performed By: #### HANNA BATES #### [facility] [address] [place] [address] Dr. Eran Chacon Urobilinogen Qn (U) 0.2 {Aureliano'U}/dL Normal 0.2 - 1. 0 [facility] Comment on above: Performed By: #### BISHNU BATESRO #### [facility] [address] [place] [address] Dr. Eran Chacon PROF 14(COMP METB)on 06-07- 022 Albumin [Mass/Vol] 4.0 g/dL Normal 3.4-5.0 [facility] Comment on above: Performed By: #### C MP #### [facility] [address] [address] [address] Eran Chacon Albumin/Globulin [Mass ratio] 1.2 {ratio} Normal [facility] Comment on above: Performed By: #### C MP #### [facility] [address] [address] [address] Eran Chacon ALP [Catalytic activity/Vol] 104 U/L Normal 46-116 [facility] Comment on above: Performed By: #### C MP #### [facility] [address] [place] [address] Dr. Eran Chacon ALT [Catalytic activity/Vol] 28 U/L Normal 16-63 [facility] Comment on above: Performed By: #### C MP #### [facility] [address] [place] [address] Dr. Eran Chacon Anion gap [Moles/Vol] 7.2 mmol/L Normal [facility] Comment on above: Performed By: #### C MP #### [facility] [address] [place] [address] Dr. Eran Chacon AST [Catalytic activity/Vol] 14 U/L Critically low 15-37 [facility] Comment on above: Performed By: #### C MP #### [facility] [address] [place] [address] Dr. Eran Chacon Bilirubin [Mass/Vol] 0.4 mg/dL Normal 0.2-1.0 [facility] Comment on above: Performed By: #### C MP #### [facility] [address] [place] [address] Dr. Eran Chacon Calcium [Mass/Vol] 9.0 mg/dL Normal 8.5-10.1 [facility] Comment on above: Performed By: #### C MP #### [facility] [address] [place] [address] Dr. Eran Chacon Chloride [Moles/Vol] 103 mmol/L Normal 98-107 [facility] Comment on above: Performed By: #### C MP #### [facility] [address] [place] [address] Dr. Eran Chacon CO2 [Moles/Vol] 30.0 mmol/L Normal 21.0-32.0 [facility] Comment on above: Performed By: #### C MP #### [facility] [address] [address] [address] Eran Chacon Creatinine [Mass/Vol] 0.85 mg/dL Normal 0.70-1.30 [facility] Comment on above: Performed By: #### C MP #### [facility] [address] [address] [address] Eran Chacon EGFR-AF MONTENEGRIN >60 Normal >=60 [facility] Comment on above: Performed By: #### C MP #### [facility] [address] [place] [address] Dr. Eran Chacon EGFR-NON AF MONTENEGRIN >60 Normal >=60 [facility] Comment on above: Performed By: #### C MP #### [facility] [address] [place] [address] Dr. Eran Chacon Globulin (S) [Mass/Vol] 3.3 g/dL Normal [facility] Comment on above: Performed By: #### C MP #### [facility] [address] [place] [address] Dr. Eran Chacon Glucose [Mass/Vol] 165 mg/dL Critically high 74-106 [facility] Comment on above: Performed By: #### C MP #### [facility] [address] [place] [address] Dr. Eran Chacon Potassium [Moles/Vol] 4.2 mmol/L Normal 3.5-5.1 [facility] Comment on above: Performed By: #### C MP #### [facility] [address] [place] [id number] Dr. Eran Chacon Protein [Mass/Vol] 7.3 g/dL Normal 6.4-8.2 [facility] Comment on above: Performed By: #### C MP #### [facility] [address] [place] [address] Dr. Eran Chacon Sodium [Moles/Vol] 136 mmol/L Normal 136-145 [facility] Comment on above: Performed By: #### C MP #### [facility] [address] [address] [address] Eran Chacon Urea nitrogen [Mass/Vol] 10.0 mg/dL Normal 7.0-18.0 [facility] Comment on above: Performed By: #### C MP #### [facility] [address] [address] [address] Eran Chacon Urea nitrogen/Creatinine [Mass ratio] 11.8 mg/mg Normal [facility] Comment on above: Performed By: #### C MP #### [facility] [address] [address] [address] Eran Chacon URINE MICROSCOPIC ONLYon BACTERIA NONE SEEN Normal NONE SEEN [facility] Comment on above: Performed By: #### Med SHER, UMICRO #### [facility] [address] [place] [address] Dr. Eran Chacon Bacteria identified Cx Nom (U) NOT INDICATED Normal [facility] Comment on above: Performed By: #### Med PIERRER, UMICRO #### [facility] [address] [place] [address] Dr. Eran Chacon CAST NONE SEEN Normal NONE SEEN [facility] Comment on above: Performed By: #### E RUR, UMICRO #### [facility] [address] [place] [address] Dr. Eran Chacon Crystals LM Nom (Urine sed) NONE SEEN Normal NONE SEEN [facility] Comment on above: Performed By: #### E RUR, UMICRO #### [facility] [address] [place] [address] Dr. Eran Chacon Epithelial cells LM Ql (Urine sed) RARE Normal NONE SEEN /RARE [facility] Comment on above: Performed By: #### E RUR, UMICRO #### [facility] [address] [place] [address] Dr. Eran Chacon MUCOUS NONE SEEN Normal NONE SEEN [facility] Comment on above: Performed By: #### E RUR, UMICRO #### [facility] [address] [address] [address] Eran Chacon RBC 0-2 Normal 0-2 [facility] Comment on above: Performed By: #### HANNA BATES #### [facility] [address] [address] [address] Eran Chacon WBC 2-5 Abnormal NONE SEEN [facility] Comment on above: Performed By: #### HANNA BATES #### [facility] [id number] Eran Chacon MRI SHOULDER LT WO [...] by: YEISON NAVAS Date: 2022-02-02 17:09 Normal [facility] Vital Signs Date Time Vital Sign Value Performing Clinician Facility 05-31-2025 13:51-0400 Diastolic blood pressure 70 mm[Hg] Jeremy Magallanes MD Work Phone: [facility] 05-31-2025 13:51-0400 Heart rate 75 /min Jeremy Magallanes MD Work Phone: [facility] 05-31-2025 13:51-0400 SaO2% (BldA) [Mass fraction] 95 % Jeremy Magallanes MD Work Phone: [facility] 05-31-2025 13:51-0400 Systolic blood pressure 145 mm[Hg] Jeremy Magallanes MD Work Phone: [facility] 05-31-2025 13:46-0400 Body height 175.26 cm Jeremy Magallanes MD Work Phone: [facility] 05-31-2025 13:46-0400 Body mass index (BMI) [Ratio] 34 kg/m2 Jeremy Magallanes MD Work Phone: [facility] 05-31-2025 13:46-0400 Body temperature 98.7 [degF] Jeremy Magallanes MD Work Phone: [facility] 05-31-2025 13:46-0400 Body weight 104.32 kg Jeremy Magallanes MD Work Phone: [facility] 02-16-2025 14:47-0400 Body height 175.26 cm Jeremy Magallanes MD Work Phone: [facility] 02-16-2025 14:47-0400 Body mass index (BMI) [Ratio] 34 kg/m2 Jeremy Magallanes MD Work Phone: [facility] 02-16-2025 14:47-0400 Body weight 104.32 kg Jeremy Magallanes MD Work Phone: [facility] 02-16-2025 14:47-0400 Diastolic blood pressure 74 mm[Hg] Jeremy Magallanes MD Work Phone: [facility] 02-16-2025 14:47-0400 Heart rate 81 /min Jeremy Magallanes MD Work Phone: [facility] 02-16-2025 14:47-0400 Respiratory rate 12 /min Jeremy Magallanes MD Work Phone: [facility] 02-16-2025 14:47-0400 SaO2% (BldA) [Mass fraction] 97 % Jeremy Magallanes MD Work Phone: [facility] 02-16-2025 14:47-0400 Systolic blood pressure 120 mm[Hg] Jeremy Magallanes MD Work Phone: [facility] 01-21-2025 09:27-0400 Body height 175.26 cm [facility] 01-21-2025 09:27-0400 Body mass index (BMI) [Ratio] 34.1 kg/m2 [facility] 01-21-2025 09:27-0400 Body temperature 98.5 [degF] [facility] 01-21-2025 09:27-0400 Body weight 104.77 kg [facility] 01-21-2025 09:27-0400 Diastolic blood pressure 82 mm[Hg] [facility] 01-21-2025 09:27-0400 Heart rate 72 /min [facility] 01-21-2025 09:27-0400 SaO2% (BldA) [Mass fraction] 97 % [facility] 01-21-2025 09:27-0400 Systolic blood pressure 144 mm[Hg] [facility] 12-22-2024 08:21-0400 Body height 175.26 cm [facility] 12-22-2024 08:21-0400 Body mass index (BMI) [Ratio] 33.6 kg/m2 [facility] 12-22-2024 08:21-0400 Body temperature 98.6 [degF] [facility] 12-22-2024 08:21-0400 Body weight 103.41 kg [facility] 12-22-2024 08:21-0400 Diastolic blood pressure 81 mm[Hg] [facility] 12-22-2024 08:21-0400 Heart rate 71 /min [facility] 12-22-2024 08:21-0400 SaO2% (BldA) [Mass fraction] 94 % [facility] 12-22-2024 08:21-0400 Systolic blood pressure 143 mm[Hg] [facility] 10-15-2024 08:56-0500 Body height 175.26 cm [facility] 10-15-2024 08:56-0500 Body mass index (BMI) [Ratio] 34.5 kg/m2 [facility] 10-15-2024 08:56-0500 Body temperature 98 [degF] [facility] 10-15-2024 08:56-0500 Body weight 106.14 kg [facility] 10-15-2024 08:56-0500 Diastolic blood pressure 81 mm[Hg] [facility] 10-15-2024 08:56-0500 Heart rate 76 /min [facility] 10-15-2024 08:56-0500 Systolic blood pressure 136 mm[Hg] [facility] 07-23-2024 10:21-0500 Body height 175.26 cm [facility] 07-23-2024 10:21-0500 Body mass index (BMI) [Ratio] 34.2 kg/m2 [facility] 07-23-2024 10:21-0500 Body weight 105.23 kg [facility] 07-23-2024 10:21-0500 Diastolic blood pressure 75 mm[Hg] [facility] 07-23-2024 10:21-0500 Heart rate 73 /min [facility] 07-23-2024 10:21-0500 SaO2% (BldA) [Mass fraction] 97 % [facility] 07-23-2024 10:21-0500 Systolic blood pressure 133 mm[Hg] [facility] 06-17-2024 09:13-0400 Body height 175.26 cm MD Jeremy Magallanes Work Phone: [facility] 06-17-2024 09:13-0400 Body mass index (BMI) [Ratio] 33.5 kg/m2 MD Jeremy Magallanes Work Phone: [facility] 06-17-2024 09:13-0400 Body temperature 98.1 [degF] MD Jeremy Magallanes Work Phone: [facility] 06-17-2024 09:13-0400 Body weight 102.96 kg MD Jeremy Magallanes Work Phone: [facility] 06-17-2024 09:13-0400 Diastolic blood pressure 83 mm[Hg] MD Jeremy Magallanes Work Phone: [facility] 06-17-2024 09:13-0400 Heart rate 79 /min MD Jeremy Magallanes Work Phone: [facility] 06-17-2024 09:13-0400 Systolic blood pressure 149 mm[Hg] MD Jeremy Magallanes Work Phone: [facility] 05-27-2024 14:56-0400 Body height 175.3 cm Priyanka Vaz 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: [facility] 05-27-2024 14:56-0400 Body mass index (BMI) [Ratio] 33.97 kg/m2 PriyankaRiskalyze 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: [facility] 05-27-2024 14:56-0400 Body weight 104.33 kg PriyankaRiskalyze 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: [facility] 04-07-2024 10:04-0400 Body height 180.3 cm Malathi Sanchez MD Work Phone: [facility] 04-07-2024 10:04-0400 Body mass index (BMI) [Ratio] 32.78 kg/m2 Malathi Sanchez MD Work Phone: [facility] 04-07-2024 10:04-0400 Body weight 106.59 kg Malathi Sanchez MD Work Phone: [facility] 04-07-2024 10:04-0400 Diastolic blood pressure 88 mm[Hg] Malathi Sanchez MD Work Phone: [facility] 04-07-2024 10:04-0400 Systolic blood pressure 184 mm[Hg] Malathi Sanchez MD Work Phone: [facility] 03-18-2024 08:46-0400 Body height 175.26 cm [facility] 03-18-2024 08:46-0400 Body mass index (BMI) [Ratio] 34.4 kg/m2 [facility] 03-18-2024 08:46-0400 Body weight 105.68 kg [facility] 03-18-2024 08:46-0400 Diastolic blood pressure 80 mm[Hg] [facility] 03-18-2024 08:46-0400 Heart rate 72 /min [facility] 03-18-2024 08:46-0400 Systolic blood pressure 130 mm[Hg] [facility] 03-03-2024 11:54-0400 Body height 175.26 cm [facility] 03-03-2024 11:54-0400 Body mass index (BMI) [Ratio] 34.7 kg/m2 [facility] 03-03-2024 11:54-0400 Body weight 106.59 kg [facility] 03-03-2024 11:54-0400 Diastolic blood pressure 81 mm[Hg] [facility] 03-03-2024 11:54-0400 Heart rate 69 /min [facility] 03-03-2024 11:54-0400 Systolic blood pressure 129 mm[Hg] [facility] 12-17-2023 08:54-0400 Body height 175.26 cm [facility] 12-17-2023 08:54-0400 Body mass index (BMI) [Ratio] 35.2 kg/m2 [facility] 12-17-2023 08:54-0400 Body weight 108.4 kg [facility] 12-17-2023 08:54-0400 Diastolic blood pressure 76 mm[Hg] [facility] 12-17-2023 08:54-0400 Heart rate 76 /min [facility] 12-17-2023 08:54-0400 Systolic blood pressure 154 mm[Hg] [facility] 12-05-2023 08:52-0400 Body height 175.26 cm [facility] 12-05-2023 08:52-0400 Body mass index (BMI) [Ratio] 35 kg/m2 [facility] 12-05-2023 08:52-0400 Body weight 107.67 kg [facility] 12-05-2023 08:52-0400 Diastolic blood pressure 78 mm[Hg] [facility] 12-05-2023 08:52-0400 Heart rate 69 /min [facility] 12-05-2023 08:52-0400 Systolic blood pressure 147 mm[Hg] [facility] 09-13-2023 13:30-0500 Body height 175.26 cm Jeremy Magallanes Other [facility] 09-13-2023 13:30-0500 Body mass index (BMI) [Ratio] 33.22 kg/m2 Jeremy Magallanes Other [employer] [facility] [employer] Other 09-13-2023 13:30-0500 Body temperature 98.4 [degF] Jeremy Magallanes Other [employer] [employer] Other 09-13-2023 13:30-0500 Body weight 102.06 kg Jeremy Magallanes Other [employer] [employer] Other 09-13-2023 13:30-0500 Body weight 102.05 kg [facility] 09-13-2023 13:30-0500 Diastolic blood pressure 80 mm[Hg] Jeremy Magallanes Other [facility] 09-13-2023 13:30-0500 SaO2% (BldA) [Mass fraction] 93 % Jeremy Magallanes Other [employer] [facility] [employer] Other 09-13-2023 13:30-0500 Systolic blood pressure 118 mm[Hg] Jeremy Magallanes Other [facility] 08-13-2023 10:30-0500 Body height 175.26 cm Jeremy Magallanes Other [facility] [employer] Other 08-13-2023 10:30-0500 Body mass index (BMI) [Ratio] 33.9 kg/m2 Jeremy Magallanes Other [facility] [employer] Other 08-13-2023 10:30-0500 Body weight 104.15 kg Jeremy Magallanes Other [facility] [employer] Other 08-13-2023 10:30-0500 Diastolic blood pressure 78 mm[Hg] Jeremy Magallanes Other [employer] Other 08-13-2023 10:30-0500 Systolic blood pressure 124 mm[Hg] Jeremy Magallanes Other [employer] Other 06-25-2023 08:45-0500 Body height 175.26 cm Jeremy Magallanes Other [employer] Other 06-25-2023 08:45-0500 Body mass index (BMI) [Ratio] 33.37 kg/m2 Jeremy Magallanes Other [employer] Other 06-25-2023 08:45-0500 Body temperature 96.5 [degF] Jeremy Magallanes Other [employer] Other 06-25-2023 08:45-0500 Body weight 102.51 kg Jeremy Magallanes Other [employer] Other 06-25-2023 08:45-0500 Diastolic blood pressure 85 mm[Hg] Jeremy Magallanes Other [employer] Other 06-25-2023 08:45-0500 Systolic blood pressure 149 mm[Hg] Jeremy Magallanes Other [employer] Other 05-28-2023 10:45-0400 Body height 175.26 cm Jeremy Magallanes Other [employer] Other 05-28-2023 10:45-0400 Body mass index (BMI) [Ratio] 33.52 kg/m2 Jeremy Magallanes Other [employer] Other 05-28-2023 10:45-0400 Body weight 102.97 kg Jeremy Magallanes Other [employer] Other 05-28-2023 10:45-0400 Diastolic blood pressure 82 mm[Hg] Jeremy Magallanes Other [employer] Other 05-28-2023 10:45-0400 Systolic blood pressure 147 mm[Hg] Jeremy Magallanes Other [employer] Other 2023 08:45-0400 Body height 175.26 cm Jeremy Magallanes Other [employer] Other 2023 08:45-0400 Body mass index (BMI) [Ratio] 33.52 kg/m2 Jeremy Magallanes Other [employer] Other 2023 08:45-0400 Body weight 102.97 kg Jeremy Magallanes Other [employer] Other 2023 08:45-0400 Diastolic blood pressure 85 mm[Hg] Jeremy Magallanes Other [employer] Other 2023 08:45-0400 Systolic blood pressure 156 mm[Hg] Jeremy Magallanes Other [employer] Other 04-30-2023 09:45-0400 Body height 175.26 cm Jeremy Magallanes Other [employer] Other 04-30-2023 09:45-0400 Body mass index (BMI) [Ratio] 34.32 kg/m2 Jeremy Magallanes Other [employer] Other 04-30-2023 09:45-0400 Body temperature 96.2 [degF] Jeremy Magallanes Other [employer] Other 04-30-2023 09:45-0400 Body weight 105.42 kg Jeremy Magallanes Other [employer] Other 04-30-2023 09:45-0400 Diastolic blood pressure 78 mm[Hg] Jeremy Magallanes Other [employer] Other 04-30-2023 09:45-0400 Respiratory rate 16 /min Jeremy Magallanes Other [employer] Other 04-30-2023 09:45-0400 Systolic blood pressure 146 mm[Hg] Jeremy Magallanes Other [employer] Other 02-20-2023 09:15-0400 Body height 175.26 cm Jeremy Magallanes Other [employer] Other 02-20-2023 09:15-0400 Body mass index (BMI) [Ratio] 33.46 kg/m2 Jeremy Magallanes Other [employer] Other 02-20-2023 09:15-0400 Body weight 102.79 kg Jeremy Magallanes Other [employer] Other 02-20-2023 09:15-0400 Diastolic blood pressure 77 mm[Hg] Jeremy Magallanes Other [employer] Other 02-20-2023 09:15-0400 Systolic blood pressure 131 mm[Hg] Jeremy Magallanes Other [employer] Other 01-17-2023 08:45-0400 Body height 175.26 cm Jeremy Magallanes Other [employer] Other 01-17-2023 08:45-0400 Body mass index (BMI) [Ratio] 33.37 kg/m2 Jeremy Magallanes Other [employer] Other 01-17-2023 08:45-0400 Body weight 102.51 kg Jermey Magallanes Other [employer] Other 01-17-2023 08:45-0400 Diastolic blood pressure 79 mm[Hg] Jeremy Magallanes Other [employer] Other 01-17-2023 08:45-0400 Systolic blood pressure 128 mm[Hg] Jeremy Magallanes Other [employer] Other 11-23-2022 09:30-0400 Body height 175.26 cm Jeremy Magallanes Other [employer] Other 11-23-2022 09:30-0400 Body mass index (BMI) [Ratio] 33.96 kg/m2 Jeremy Magallanes Other [employer] Other 11-23-2022 09:30-0400 Body weight 104.33 kg Jeremy Magallanes Other [employer] Other 11-23-2022 09:30-0400 Diastolic blood pressure 72 mm[Hg] Jeremy Magallanes Other [employer] Other 11-23-2022 09:30-0400 Systolic blood pressure 122 mm[Hg] Jeremy Magallanes Other [employer] Other 09-04-2022 11:30-0500 Body height 175.26 cm Jeremy Magallanes Other [employer] Other 09-04-2022 11:30-0500 Body mass index (BMI) [Ratio] 33.52 kg/m2 Jeremy Magallanes Other [employer] Other 09-04-2022 11:30-0500 Body weight 102.97 kg Jeremy Magallanes Other [employer] Other 09-04-2022 11:30-0500 Diastolic blood pressure 80 mm[Hg] Jeremy Magallanes Other [employer] Other 09-04-2022 11:30-0500 SaO2% (BldA) [Mass fraction] 95 % Jeremy Magallanes Other [employer] Other 09-04-2022 11:30-0500 Systolic blood pressure 122 mm[Hg] Jeremy Magallanes Other [employer] Other 02-06-2022 12:45-0400 Body height 175.26 cm Kesha Olexa Other [employer] Other 02-06-2022 12:45-0400 Body mass index (BMI) [Ratio] 31.01 kg/m2 Kesha Olexa Other [employer] Other 02-06-2022 12:45-0400 Body weight 95.26 kg Kesha Olexa Other [employer] Other 05-26-2021 13:15-0400 Body height 175.26 cm Harriet Ginty Other [employer] Other 05-26-2021 13:15-0400 Body mass index (BMI) [Ratio] 31.01 kg/m2 Harriet Ginty Other [employer] Other 05-26-2021 13:15-0400 Body temperature 98.3 [degF] Harriet Ginty Other [employer] Other 05-26-2021 13:15-0400 Body weight 95.26 kg Harriet Ginty Other [employer] Other 05-26-2021 13:15-0400 SaO2% (BldA) [Mass fraction] 96 % Harriet Ginty Other [employer] Other Encounters Encounter Date Encounter Type Care Provider Facility Start: 05-31-2025 End: 05-31-2025 ambulatory Jeremy Magallanes MD Work Phone: [facility] Work Phone: Start: 05-31-2025 End: 05-31-2025 Patient encounter procedure Jeremy Magallanes MD -[facility] Work Phone: Start: 05-24-2025 End: 05-24-2025 ambulatory Zacarias Pike MD Facility: [facility] Start: 04-26-2025 End: 04-26-2025 ambulatory Zacarias Pike MD Facility:[facility] Start: 04-05-2025 End: 04-05-2025 ambulatory Zacarias Pike MD Facility: [facility] Start: 02-16-2025 Patient encounter procedure Jeremy Magallanes MD Work Phone: [facility] Start: 02-16-2025 End: 02-16-2025 ambulatory Jeremy Magallanes MD Work Phone: [facility] Work Phone: Start: 02-16-2025 End: 02-16-2025 Patient encounter procedure Jeremy Magallanes MD -[facility] Work Phone: Start: 01-21-2025 End: 01-21-2025 ambulatory [facility] Work Phone: Start: 01-21-2025 End: 01-21-2025 Patient encounter procedure [facility] Work Phone: Start: 12-23-2024 [facility] Work Phone: Start: 12-22-2024 End: 12-22-2024 ambulatory [facility] Work Phone: Start: 12-22-2024 End: 12-22-2024 [facility] Work Phone: Start: 11-23-2024 End: 11-23-2024 ambulatory Zacarias Pike MD Facility:[facility] Start: 11-04-2024 End: 11-05-2024 ambulatory Ligia T CHIKIS Facility:[facility] Start: 11-04-2024 End: 11-05-2024 Patient encounter procedure Ligia T CHIKIS [facility] Start: 11-04-2024 End: 11-05-2024 ambulatory Ligia T CHIKIS [facility] Start: 10-15-2024 End: 10-15-2024 ambulatory [facility] Work Phone: Start: 10-15-2024 End: 10-15-2024 [facility] Start: 10-12-2024 Non-patient / Non-visit [facility] Work Phone: Start: 10-11-2024 Non-patient / Non-visit [facility] Work Phone: Start: 08-26-2024 Non-patient / Non-visit [facility] Work Phone: Start: 08-17-2024 End: 08-17-2024 ambulatory Zacarias Pike MD Facility:[facility] Start: 07-23-2024 End: 07-23-2024 Patient encounter procedure [facility] Work Phone: Start: 07-21-2024 Non-patient / Non-visit [facility] Work Phone: Start: 07-20-2024 Non-patient / Non-visit [facility] Work Phone: Start: 06-17-2024 End: 06-17-2024 ambulatory MD Jeremy Magallanes Work Phone: [facility] Work Phone: Start: 06-17-2024 End: 06-17-2024 Patient encounter procedure MD Jeremy Magallanes Work Phone: [facility] Work Phone: Start: 06-12-2024 End: 06-12-2024 Orders Only Not In System Ref Prov [facility] Start: 06-10-2024 End: 06-10-2024 Orders Only Rosalia Shea A [facility] Comment on above: Dysphagia, unspecifi ed type; Black stools Start: 06-03-2024 End: 06-03-2024 ambulatory MD Jeremy Magallanes Work Phone: [facility] Work Phone: Start: 06-03-2024 End: 06-03-2024 Departed Referred MD Jeremy Magallanes Work Phone: [facility] Start: 06-03-2024 Non-patient / Non-visit MD Angelina Magallanes Work Phone: [facility] Work Phone: Start: 05-27-2024 End: 05-27-2024 Office outpatient new 30 minutes [facility] 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: [facility] Comment on above: Dysphagia, unspecifi ed type (Primary Dx); Black stools; Gastroesophageal reflux disease, unspecified whether esophagitis present; Abnormal esophagram Start: 05-27-2024 End: 05-27-2024 ambulatory [facility] Start: 05-14-2024 End: 05-21-2024 Telephone encounter Ameya Meraz MD Work Phone: General Surgery Comment on above: New Patient; Care Co ordinator - Other Start: 05-04-2024 End: 05-04-2024 Telephone encounter Malathi Sanchez MD Work Phone: [facility] Start: 04-07-2024 End: 04-07-2024 Bamboo flowsgage Sanchez MD Work Phone: [facility] Start: 04-07-2024 End: 04-07-2024 Bamblazeo flowsgage Sanchez MD Work Phone: [facility] Start: 04-07-2024 End: 04-07-2024 Office outpatient new 45 minutes Malathi Sanchez MD Work Phone: [facility] Comment on above: Esophageal dysphagia (Primary Dx); Neck mass Start: 04-07-2024 End: 04-07-2024 ambulatory MALATHI SANCHEZ Not Available Start: 03-18-2024 End: 03-18-2024 ambulatory [facility] Work Phone: Start: 03-18-2024 End: 03-18-2024 [facility] encounter [facility] Work Phone: Start: 03-03-2024 End: 03-03-2024 ambulatory [facility] Work Phone: Start: 03-03-2024 End: 03-03-2024 Patient encounter procedure [facility] Work Phone: Start: 02-27-2024 Non-patient / Non-visit [facility] Work Phone: Start: 12-17-2023 End: 12-17-2023 ambulatory [facility] Work Phone: Start: 12-17-2023 End: 12-17-2023 Patient encounter [facility] Work Phone: Start: 12-05-2023 End: 12-05-2023 ambulatory [facility] Work Phone: Start: 12-05-2023 End: 12-05-2023 Patient encounter procedure [facility] Work Phone: Start: 10-23-2023 Non-patient / Non-visit [facility] Work Phone: Start: 10-08-2023 Non-patient / Non-visit [facility] Work Phone: Start: 10-07-2023 End: 10-07-2023 ambulatory BARBIE Tellez POCOS Not Available Start: 09-18-2023 End: 09-18-2023 ambulatory Jeremy Magallanes Other [employer] Other Start: 09-18-2023 Telephone encounter Jeremy Magallanes [facility] Start: 09-13-2023 End: 09-13-2023 ambulatory Jeremy Magallanes Other [employer] Other Start: 09-13-2023 Office outpatient vi sit 15 minutes Jeremy Magallanes [facility] Start: 09-13-2023 End: 09-13-2023 Patient encounter [facility] Start: 09-11-2023 Telephone encounter [place] Joel coleman [...] 09-10-2023 End: 09-10-2023 ambulatory Jeremy Magallanes Other [employer] Other Start: 09-10-2023 Telephone encounter Jeremy Magallanes [facility] Start: 09-06-2023 End: 09-06-2023 ambulatory Jeremy Sona Other [employer] Other Start: 09-06-2023 Telephone encounter Jeremy Sona [facility] Start: 09-02-2023 End: 09-02-2023 ambulatory JIN POCOS Not Available Start: 08-20-2023 End: 08-20-2023 ambulatory Jeremy Magallanes Other [employer] Other Start: 08-20-2023 Telephone encounter Jeremy Magallanes [facility] Start: 08-13-2023 End: 08-13-2023 ambulatory Jeremy Magallanes Other [employer] Other Start: 08-13-2023 Office outpatient vi sit 25 minutes Jeremy Magallanes [facility] Start: 08-13-2023 Telephone encounter Jeremy Magallanes [facility] Start: 08-06-2023 End: 08-06-2023 ambulatory Jeremy Magallanes Other [employer] Other Start: 08-06-2023 Telephone encounter Jeremy Magallanes [facility] Start: 07-29-2023 End: 07-29-2023 ambulatory BARBIE Tellez LISETHDORON Not Available Start: 07-22-2023 End: 07-22-2023 ambulatory Jeremy Magallanes Other [employer] Other Start: 07-22-2023 Telephone encounter Jeremy Magallanes [facility] Start: 07-19-2023 End: 07-19-2023 ambulatory Jeremy Magallanes Other [employer] Other Start: 07-19-2023 Telephone encounter Jeremy Magallanes [facility] Start: 07-18-2023 End: 07-18-2023 ambulatory Jeremy Magallanes Other [employer] Other Start: 07-18-2023 Telephone encounter Jeremy Magallanes [facility] Start: 07-02-2023 End: 07-02-2023 ambulatory Jeremy Magallanes Other [employer] Other Start: 07-02-2023 Office outpatient vi sit 15 minutes Jeremy Magallanes [facility] Start: 07-02-2023 Telephone encounter Jeremy Magallanes [facility] Start: 06-25-2023 End: 06-25-2023 ambulatory Jeremy Magallanes Other [employer] Other Start: 06-25-2023 Office outpatient vi sit 15 minutes Jeremy Magallanes [facility] Start: 06-21-2023 End: 06-21-2023 ambulatory Jeremy Magallanes Other [employer] Other Start: 06-21-2023 Encounter by edmond owen Jeremy Magallanes [facility] Start: 06-20-2023 End: 06-20-2023 ambulatory Jeremy Magallanes Other [employer] Other Start: 06-20-2023 Telephone encounter Jeremy Magallanes [facility] Start: 06-17-2023 End: 06-17-2023 ambulatory Jeremy Magallanes Other [employer] Other Start: 06-17-2023 Telephone encounter Jeremy Magallanes [facility] Start: 06-10-2023 End: 06-10-2023 ambulatory Jeremy Magallanes Other [employer] Other Start: 06-10-2023 Telephone encounter Jeremy Magallanes [facility] Start: 06-03-2023 End: 06-03-2023 ambulatory Jeremy Sona Other [employer] Other Start: 06-03-2023 Telephone encounter Jeremy Magallanes [facility] Start: 05-30-2023 End: 05-30-2023 Patient encounter procedure Barbie Jesus [facility] Start: 05-28-2023 End: 05-28-2023 ambulatory Jeremy Magallanes Other [employer] Other Start: 05-28-2023 Office outpatient vi sit 15 minutes Jeremy Magallanes [facility] Start: 2023 End: 2023 ambulatory Jeremy Magallanes Other [employer] Other Start: 2023 Office outpatient vi sit 15 minutes Jeremy Magallanes [facility] Start: 05-16-2023 End: 05-16-2023 ambulatory Jeremy Magallanes Other [employer] Other Start: 05-16-2023 Telephone encounter Jeremy Magallanes [facility] Start: 04-30-2023 End: 04-30-2023 ambulatory Jeremy Sona Other [employer] Other Start: 04-30-2023 Office outpatient vi sit 15 minutes Jeremy Sona [facility] Start: 04-26-2023 End: 04-26-2023 ambulatory Jeremy Sona Other [employer] Other Start: 04-26-2023 Telephone encounter Jeremy Sona [facility] Start: 04-23-2023 End: 04-23-2023 ambulatory Jeremy Sona Other [employer] Other Start: 04-23-2023 Telephone encounter Jeremy Sona [facility] Start: 03-25-2023 End: 03-25-2023 ambulatory Jeremy Sona Other [employer] Other Start: 03-25-2023 Telephone encounter Jeremy Sona [facility] Start: 03-06-2023 End: 03-06-2023 ambulatory Jeremy Sona Other [employer] Other Start: 03-06-2023 Telephone encounter Jeremy Sona [facility] Start: 02-20-2023 End: 02-20-2023 ambulatory Jeremy Sona Other [employer] Other Start: 02-20-2023 Office outpatient vi sit 25 minutes Jeremy Sona [facility] Start: 02-05-2023 End: 02-05-2023 ambulatory Jeremy Sona Other [employer] Other Start: 02-05-2023 Telephone encounter Jeremy Sona [facility] Start: 01-21-2023 End: 01-21-2023 ambulatory Jeremy Sona Other [employer] Other Start: 01-21-2023 Telephone encounter Jeremy Magallanes [facility] Start: 01-17-2023 End: 01-17-2023 ambulatory Jeremy Magallanes [employer] Other Start: 01-17-2023 Office outpatient vi sit 15 minutes Jeremy Magallanes [facility] Start: 12-24-2022 End: 12-24-2022 ambulatory Jeremy Magallanes Other [employer] Other Start: 12-24-2022 Telephone encounter Jeremy Magallanes [facility] Start: 12-03-2022 End: 12-03-2022 ambulatory Jeremy Magallanes Other [employer] Other Start: 12-03-2022 Telephone encounter Jeremy Magallanes [facility] Start: 11-27-2022 End: 11-27-2022 ambulatory Jeremy Magallanes Other [employer] Other Start: 11-27-2022 Telephone encounter Jeremy Magallanes [facility] Start: 11-26-2022 End: 11-26-2022 ambulatory Jeremy Magallanes Other [employer] Other Start: 11-26-2022 Telephone encounter Jeremy Magallanes [facility] Start: 11-24-2022 End: 11-25-[address] JEREMY MAGALLANES Facility: Start: 11-23-2022 End: 11-23-2022 ambulatory Jeremy Magallanes Other [employer] Other Start: 11-23-2022 Office outpatient vi sit 15 minutes Jeremy Magallanes [facility] Start: 11-05-2022 End: 11-05-2022 ambulatory Jeremy Magallanes Other [employer] Other Start: 11-05-2022 Telephone encounter Jeremy Magallanes [facility] Start: 10-03-2022 End: 10-03-2022 ambulatory Jeremy Magallanes Other [employer] Other Start: 10-03-2022 Telephone encounter Jeremy Magallanes [facility] Start: 09-04-2022 End: 09-04-2022 ambulatory Jeremy Magallanes Other [employer] Other Start: 09-04-2022 Office outpatient vi sit 25 minutes Jeremy Magallanes [facility] Start: 07-26-[address] JEREMY MAGALLANES Facil ity:H1 Start: 07-19-2022 End: 07-20-[address] WILFREDO ENGLE Facility:[facility] Start: 06-07-2022 End: 06-07-[address] JEREMY MAGALLANES Facility:[facility]1 Start: 03-15-2022 ambulatory KESHA ESCOBEDO Facility:H 1 Start: 02-06-2022 End: 02-06-2022 ambulatory Kesha Olemartin Other [employer] Other Start: 02-06-2022 Office outpatient vi sit 25 minutes Kesha Ronnie [facility] Start: 02-02-2022 End: 02-03-2022 ambulatory KESHA ESCOBEDO Facility:[facility]1 Start: 12-28-2021 End: 12-28-[address] JEREMY MAGALALNES Facility:[facility]1 Start: 12-12-2021 End: 12-13-2021 ambulatory KESHA UNRULYXA [employer] 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: Start: 06-03-2024 Level i surg [...] Vaccines (3 - Td or Tdap) [facility] Start: 05-27-2025 Adult BMI Screening Adult BMI Screening [facility] Start: 05-27-2025 Tobacco Screening Tobacco Screening [facility] Start: 10-15-2024 Patient referral [facility] Work Phone: Start: 04-19-2024 Influenza vaccination Influenza Vaccine [facility] Start: 04-07-2024 End: 04-07-2024 Patient encounter procedure 04/07/2024 10:30 AM EDT Office Visit [facility] [address] [facility] [address] [place] [address] Malathi Sanchez MD [address] [facility] [address] [place] [address] Arrived [facility] Comment on above: Arrived Start: 03-18-2024 Patient referral [facility] Work Phone: Start: 10-07-2023 End: 10-07-2023 Patient encounter procedure 10/07/2023 8:00 AM EST Office Visit [facility] [address] [place] [id number] Barbie Jesus DO [address] [place] [address] [facility] Start: 2010 Administration of varicella zoster vaccine Zoster (Shingles) Vaccine (1 of 2) [facility] Start: 1978 Adult BMI Follow Up Plan Adult BMI Follow Up Plan [facility] Start: 1972 Depression Screening Depression Screening [facility] Start: 1960 Tobacco Counseling Tobacco Counseling [facility] Comprehensive metabo lic 1999 panel - Serum or Plasma [facility] CT [facility] End: 05-27-2025 Esophagogastroduodenoscopy EGD GI Routine Dysphagia, unspecified type Black stools 1 Occurrences starting 05/27/2024 until 05/27/2025 [facility] Work Phone: Comment on above: 1 Occurrences starting 05/27/2024 until 05/27/2025 Patient referral [facility] Work Phone: XR Chest 2 Views [facility] XR Pelvis and Hip - bilateral Views [facility] Immunizations Immunization Date Immunization Notes Care Provider [facility] 06-02-2018 Influenza, injectabl e, Madin Kyleigh Canine Kidney, preservative free, quadrivalent Argentina Clinton PT Work Phone: [facility] 06-02-2018 influenza virus vaccine, unspecified formulation Priyankalaure العليoll 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 purified surface antigen) Jeremy Magallanes Other [employer] Other 05-17-2017 influenza virus vaccine, unspecified formulation [facility] 05-16-2017 influenza, injectabl e, quadrivalent, preservative free Argentina Clinton PT Work Phone: [facility] 06-28-2016 influenza, injectabl e, quadrivalent, preservative free Argentina Clinton PT Work Phone: [facility] 06-28-2016 tetanus and diphther ia toxoids, adsorbed, preservative free, for adult use (5 Lf of tetanus toxoid and 2 Lf of diphtheria toxoid) Jeremy Magallanes Other [facility] 05-25-2015 influenza, seasonal, injectable, preservative free Argentina Clinton PT Work Phone: [facility] 05-25-2015 tetanus and diphther ia toxoids, adsorbed, preservative free, for adult use (5 Lf of tetanus toxoid and 2 Lf of diphtheria toxoid) Jeremy Magallanes Other [facility] 06-15-1999 pneumococcal conjuga te vaccine, 7 valent Argentina Oz PT Work Phone: [facility] Payers Date Payer Category Payer Medicaid [id number] 2013 Medicare [id number] 1960 Unknown [id number] 2.16.84 0.1.508859.3.579.2.593 1960 Unknown [id number] 2.16.84 0.1.036081.3.579.2.593 1960 Unknown [id number] 2.16.84 0.1.848415.3.579.2.593 1960 Unknown [id number] 2.16.84 0.1.335841.3.579.2.593 1960 Unknown [id number] 2.16.84 0.1.450179.3.579.2.593 1960 Unknown [id number] 2.16.84 0.1.810389.3.579.2.593 1960 Unknown [id number] 2.16.84 0.1.655754.3.579.2.593 1960 Unknown [id number] 2.16.84 0.1.968226.3.579.2.593 1960 Unknown [id number] 2.16.84 0.1.924485.3.579.2.1259 1960 Unknown [id number] 2.16.84 0.1.445166.3.579.2.1259 1960 Unknown [id number] 2.16.84 0.1.154087.3.579.2.1259 1960 Unknown [id number] 2.16.84 0.1.591024.3.579.2.1259 1960 Unknown [id number] 2.16.840 .1.464686.3.579.2.1259 1960 Unknown [id number] 2.16.8 40.1.480048.3.579.2.1286 1960 Unknown [id number] 2.16.8 40.1.568984.3.579.2.727 1960 Unknown [id number] 2.16.8 40.1.365283.3.579.2.727 1960 Unknown [id number] 2.16. 840.1.406659.3.579.2.196 1960 Unknown [id number] 2.16. 840.1.388942.3.579.2.196 1960 Unknown [id number] 2.16. 840.1.662404.3.579.2.196 1960 Unknown [id number] 2.16. 840.1.057447.3.579.2.196 1960 Unknown [id number] 2.16. 840.1.601438.3.579.2.196 1959 Medicaid [id number] 2. 16.840.1.338379.19 1959 Medicare [id number] 2.1 [id number] Self-pay [id number] Social History Date Type Detail Facility Start: 09-29-2020 End: 09-02-2023 Sex Assigned At [facility] Tobacco smoking status [facility] Start: 06-03-2019 End: 03-27-2023 Tobacco smoking status MIIS Smokes tobacco daily [facility] Work Phone: History of tobacco use Cigarette Smoker [facility] Start: 09-29-2020 End: 03-27-2023 Cigarettes smoked current (pack per day) - Reported 0.5 [facility] Start: 06-03-2019 End: 03-27-2023 Tobacco use and exposure Smokeless tobacco non-user [facility] Start: 09-02-2023 End: 05-27-2024 Alcohol intake Lifetime non-drinker (finding) [facility] Start: 03-27-2023 Alcohol Comment Caffine- Soda [facility] Start: 1960 Sex Assigned At Male [facility] Start: 08-21-2023 Gender identity Identifies as male gender (finding) [facility] Start: 08-21-2023 Sexual orientation Heterosexual (finding) [facility] Start: 02-06-2017 End: 02-16-2025 Tobacco smoking status [facility] Ex-smoker (finding) [facility] Tobacco smoking stat [facility] Tobacco smoking consumption unknown [facility] Start: 1960 Sex assigned at Not on file [facility] Frequency of Alcohol Consumption Never [facility] Start: 06-01-2019 End: 01-21-2025 Sex Male (finding) [facility] Medical Equipment Procedure Code Equipment Code Equipment Origin al Text Equipment Identifier Dates Accu-Chek FastCl ix Lancet - Blood Sugar Diagnostic (Accu-Chek Ya Plus Test Strp) strip Start: 11-06-2024 Lancets (Accu-Ch ek Fastclix Lancet Drum) [facility] Start: 10-28-2024 Blood Sugar Diagnostic (Accu-Chek Ya [...] mellitus acute December 22, 2024 8: 19am [facility] Work Phone: 1(708) 462-843105-06-2025 Evaluation note* Diagnosis Onset Date Resolution Status Admit Date Bronchitis acute December 22, 2024 8:19am Bruising acute December 22, 2024 8:19am Enlarged prostate acute December 8:19am Screening PSA (prostate spec ific antigen) acute December 22, 2024 8: 19am Type II diabetes mellitus acute December 22, 2024 8:19am Bronchitis acute January 21, 2025 9:26am [facility] Work Phone: 1(234) 648-749203-19-2025 NoteProgress Note-Nurse LVM to talk about A1C level, he will be getting a one year card but will have to talk with his PCP about getting that number down.[facility] 10-15-2024 Evaluation note* Diagnosis Onset [...] diabetes mellitus acute December 22, 2024 8:19am [facility] Work Phone: 1(773) 823-646212-05-2024 Evaluation note* Diagnosis Onset Date Resolution Status Admit Date GERD (gastroesophageal reflu x disease) acute July 23 10:18am Lymphadenopathy acute July 23, 2024 10:18am Mass of left submandibular region acute July 23 10:18am Bladder diverticulum acute ua2024 8:52am Enlarged prostate acute ua2024 8:52am Lymphadenopathy acute October 15, 2024 8:52am [facility] Work Phone: 1(238) 840-761810-25-2024 Miscellaneous Notes* Telephone Encounter - Evelyn Mendoza [...] Address verified with patient. [facility] Telephone encounter Note* Telephone Encounter - Evelyn [...] risk of esophageal cancer. Thanks, Dr. Kc [facility]10-25-2024 Telephone encounter Note* Telephone Encounter - Evelyn Mendoza CMA - 06/12/2024 12:00 PM EDT Spoke with patient regarding pathology results. Patient verbally understood with no further questions. 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 Address verified with patient. [facility]10-09-2024 History of Present illness Narrative* Priyanka Vaz APRN-VLADIMIR - 05/27/2024 2:30 PM EDT Images from [...] gallbladder polyp. He saw Dr. Martinez in [place] for this. He also reports a positive [...] confusion. 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 While intending to generate a timely document that accurately reflects the content of the visit, no guarantee can be provided that every grammatical or spelling mistake has been or will be identified or corrected. Thank you for your understanding. CHARLEE Biggs 05/27/24 1555 [facility] Telephone encounter Note* Telephone Encounter - Milli Vivian J - 05/15/2024 11:35 AM EDT Images from the original note were not included. Consult from Dr. Jeremy Magallanes (Internal Medicine) [facility] Referral received from PCP for [...] completed: 04/08/2024 Barium Swallow 03/21/2024 CT Chest [facility]09-27-2024 Miscellaneous Notes* Telephone Encounter - Vivian Morley - 05/15/2024 11:35 AM EDT Images from the original note were not included. Consult from Dr. Jeremy Magallanes (Internal Medicine) [facility] Referral received from PCP for [...] were not included. Referral was sent from [facility] for new consult with Dr Meraz Please see below and advise documented in [facility] Telephone encounter Note * Telephone Encounter - Keily Martines - 05/14/2024 1:07 PM EDT Images from the original note were not included. Referral was sent from [facility] for new consult with Dr Meraz Please see below and advise [facility]09-16-2024 Telephone encounter Note* Telephone Encounter - Cynthia Sanchez - 05/04/2024 9:45 AM EDT Left message on sister's voice mail to contact Dr Magallanes's office for referral. [facility] [id number] Miscellaneous Notes* Telephone Encounter - Cynthia Sanchez [...] referral sent to Dr Ameya Meraz at [facility]. He is a gastrologist. The fax number is [phone] . Pt's sister would like a call back at [phone]. documented in this encounterProgress West [id number] Telephone encounter Note* Telephone Encounter - Malathi Sanchez MD - 05/04/2024 9:27 AM EDT That needs to be done by Dr Magallanes's office [facility] [id number] Telephone encounter Note* Telephone Encounter - Cynthia Sanchez - 05/04/2024 9:15 AM EDT Pt's sister called in. She said her brother would like a referral sent to Dr Ameya Meraz at [facility]. He is a gastrologist. The fax number is [phone] . Pt's sister would like a call back at [phone]. [facility] [id number] History of Present illness Narrative* Malathi Sanchez MD - 04/07/2024 10:30 AM EDT Subjective Patient ID: Alex Craig is a 63 y.o. male who presents for Neck Mass (CT @ [facility] 02/26[facility]) Pt reports he is [...] Arthralgia 03/31/2024 Chronic obstructive pulmonary disease, unspecified ([facility]) 03/31/2024 Lumbar pain 03/31/2024 Mass of left submandibular region 03/31/2024 Type II diabetes mellitus ([facility]) 03/31/2024 Liver mass 04/07/2024 Kidney cysts 04/07/2024 Resolved Ambulatory Problems Diagnosis Date Noted No Resolved Ambulatory Problems Past Medical History: Diagnosis Date Arthritis COPD (chronic obstructive pulmonary disease) ([facility]) Family history of cancer Hx of being [...] resolved. F/U if recurs documented in this [facility]02-14-2024 Telephone encounter Note* Telephone Encounter - Maris Tavera - 10/02/2023 1:35 PM EST No attempts to hear back; closing referral. [facility] [id number] Miscellaneous Notes* Telephone Encounter - Maris Tavera - 10/02/2023 1:35 PM EST No attempts to hear back; closing referral. documented in this [facility]01-26-2024 Evaluation note* Encounter Date Diagnosis Assessment Notes Treatment Notes Treatment Clinical Notes Aug, Chronic obstructive pulmonary disease, unspecified (ICD-10 - J44.9) Finish antibiotics and prednisone as prescribed. Denies pulmonary referral at this time. Hasn't smoked since 09/08 and declines chantix or patches. Aug, Current smoker (ICD-10 - F17.200) [employer] Other 01-23-2024 Evaluation note* Encounter Date Diagnosis Assessment Notes Treatment Notes Treatment Clinical Notes Aug, Lumbar radicular pain (ICD-10 - M54.16) [employer] Other 01-19-2024 Evaluation note* Encounter Date Diagnosis Assessment Notes Treatment Notes Treatment Clinical Notes Aug, Lumbar radicular pain (ICD-10 - M54.16) [employer] Other 12-26-2023 Evaluation note* Encounter Date Diagnosis Assessment Notes Treatment Notes Treatment Clinical Notes Jul, Type 2 diabetes mellitus with hyperglycemia, without long-term current use of insulin (ICD-10 - E11.65) [employer] Other 12-26-2023 Evaluation note* Encounter Date [...] T3s after shoulder pain has improved post-operatively. [employer] Other 12-04-2023 Evaluation note* Encounter Date Diagnosis Assessment Notes Treatment Notes Treatment Clinical Notes Jul, Type 2 diabetes mellitus with hyperglycemia, without long-term current use of insulin (ICD-10 - E11.65) [employer] Other 12-01-2023 Evaluation note* Encounter Date Diagnosis Assessment Notes Treatment Notes Treatment Clinical Notes Jul, Type 2 diabetes mellitus with hyperglycemia, without long-term current use of insulin (ICD-10 - E11.65) [employer] Other 11-30-2023 Evaluation note* Encounter Date Diagnosis Assessment Notes Treatment Notes Treatment Clinical Notes Jun, Labral tear of shoulder, right, subsequent encounter (ICD-10 - S43.431D) [employer] Other 11-14-2023 Evaluation note* Encounter Date [...] pain (ICD-10 - R07.9) r/o cardiac cause [employer] Other 11-07-2023 Evaluation note* Encounter Date [...] to decrease dose and possibly discontinue medication. [employer] Other 11-02-2023 Evaluation note* Encounter Date Diagnosis Assessment Notes Treatment Notes Treatment Clinical Notes Jun, Acute pain of right shoulder (ICD-10 - M25.511) [employer] Other 10-30-2023 Evaluation note* Encounter Date Diagnosis Assessment Notes Treatment Notes Treatment Clinical Notes May, Acute pain of right shoulder (ICD-10 - M25.511) [employer] Other 10-23-2023 Evaluation note* Encounter Date Diagnosis Assessment Notes Treatment Notes Treatment Clinical Notes May, Acute pain of right shoulder (ICD-10 - M25.511) [employer] Other 10-16-2023 Evaluation note* Encounter Date Diagnosis Assessment Notes Treatment Notes Treatment Clinical Notes May, Acute pain of right shoulder (ICD-10 - M25.511) [employer] Other 10-10-2023 Evaluation note* Encounter Date Diagnosis Assessment Notes Treatment Notes Treatment Clinical Notes May, Acute pain of right shoulder (ICD-10 - M25.511) MRI and surgery planning pending. Pt understands this is a controlled substance and to call in 1 week w update on treatment plan. May, Bronchitis (ICD-10 - J40) Finish antibiotic, rest, hydrate Steroids for wheezing. [employer] Other 10-04-2023 Evaluation note* Encounter Date Diagnosis Assessment Notes Treatment Notes Treatment Clinical Notes May, Acute pain of right shoulder (ICD-10 - M25.511) Reviewed [place] and discussed short term plan of increase in pain medication. He is due for a refill of the T3s presently. Stop them, replace w norco. Pt understands weekly prescription and will need to d/c after anticipated surgery. [employer] Other 09-12-2023 Evaluation note* Encounter Date [...] office and the ER visit on 04/26 [employer] Other 07-05-2023 Evaluation note* Encounter Date [...] and will need less prn pain med. [employer] Other 06-01-2023 Evaluation note* Encounter Date [...] left shoulder (ICD-10 - M25.512) as above. [employer] Other 04-17-2023 Evaluation note* Encounter Date Diagnosis Assessment Notes Treatment Notes Treatment Clinical Notes Nov, Bronchitis (ICD-10 - J40) [employer] Other 04-11-2023 Evaluation note* Encounter Date Diagnosis Assessment Notes Treatment Notes Treatment Clinical Notes Nov, Disc degeneration, lumbar (ICD-10 - M51.36) Nov, Lumbar radicular pain (ICD-10 - M54.16) [employer] Other 04-07-2023 Evaluation note* Encounter Date [...] quit smoking. Pt verbalizes understanding and agreement. [employer] Other 02-15-2023 Evaluation note* Encounter Date Diagnosis Assessment Notes Treatment Notes Treatment Clinical Notes Sep, Lumbar radicular pain (ICD-10 - M54.16) [employer] Other 01-17-2023 Evaluation note* Encounter Date [...] is outlined on the test result page. [employer] Other 10-20-2022 NoteIndication: Calculus in kidney. 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 [employer] Other 04-26-2022 NotePROCEDURE: XR SHOULDER LT 2V or > COMPARISON: None. HISTORY: Pain of left shoulder joint FINDINGS: BONES:No acute fracture or dislocation. 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 No visible soft tissue swelling. EFFUSION:None visible. OTHER: Negative. IMPRESSION: Mild osteoarthritis Electronically authenticated by: BARBIE MEMBRENO Date: 2021-12-12 [facility] Encounter Date Diagnosis Assessment [...] pain of left shoulder (ICD-10 - M25.512) [facility] Other 10-08-2021 Evaluation note* Encounter Date Diagnosis [...] as needed for cough. Advised patient that [place] contains antihistamine and cough suppressant and to be cautious using other OTC cold medications. Patient to follow up with PCP if symptoms do not improve. Immediate eval if SOB, difficulty breathing, chest pain, dizziness, or other concerning symptoms. Patient verbalizes understanding and is agreeable to treatment plan [facility] Other Evaluation + Plan note No data available for this section [facility] CenterEvaluation noteNo InformationNortEncompass Health Rehabilitation [facility] Problems[facility] Other Evaluation note* Diagnosis Onset Date Resolution Status Arthralgia acute Lumbar pain acute Type II diabetes mellitus ac [facility] Work Phone: Evaluation note* Diagnosis Onset Date Resolution Status Arthralgia acute Lumbar pain acute Type II diabetes mellitus ac [place] Bilateral hip pain [facility] Work Phone: Evaluation note* Diagnosis Onset Date Resolution Status Arthralgia acute Lumbar pain acute Type II diabetes mellitus ac [place] Bilateral hip pain acute Lumbar pain [facility] Work Phone: Evaluation note* Diagnosis Onset Date Resolution Status Submandibular abscess acute Chronic obstructive pulmonary disease, unspecified acute Esophageal abnormality acute Mass of left submandibular region 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 Hiatal hernia acute [facility] Work Phone: Evaluation note* Diagnosis Esophageal dysphagia- Primary Dysphagia, pharyngoesophageal phase Neck mass Swelling, mass, or lump in head and neck documented in this encounter [facility]* Diagnosis Dysphagia, unspecified type- Primary Black stools Nonspecific abnormal finding in stool contents Gastroesophageal reflux disease, unspecified whether esophagitis present Abnormal esophagram documented [facility] encounter [facility] Diagnosis Dysphagia, unspecified type Black stools Nonspecific abnormal finding in stool contents [facility] Diagnosis Onset Date Resolution Status Admit Date Chronic coughing acute May 31, 2025 1:27pm [facility] Work Phone: History general Narrative - Reported* Type Description Date Medical History Asthma Medical History skin cancer-lip Surgical History Left lung biopsy 1977 Surgical History L4 and L5 disc fusion 1984 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 Surgical History carpal tunnel release 2016 Surgical History tonsillectomy Hospitalization History 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 Hospitalization History pneumonia [facility] Problems[facility]24 Other Hospital Discharge instructions No data available for this section [facility] Discharge instructionsAmbulatory Orders* Referral to ENT Time Frame: 03/18/24, Location: None [facility] Work Phone: Hospital Discharge instructionsAmbulatory Orders* Referral to Urology Time Frame: 10/15/24, Location: None [facility] Work Phone: InstructionsNot on filedocumented in this encounter [facility]InstructionsNot on filedocumented in this encounter [facility] SystemInstructionsNot on filedocumented in this encounter [facility] note No data available for this section [facility] CenterReason for referral (narrative)No reason for referral information availableSelect [facility] Work Phone: Summary Purpose Family History Relationship [...] 1 Epigastric abdominal pain (R10.13) Referral Organization [facility] [employer] [facility] omar Referring Provider First Name Jeremy Referring Provider Last Name Sona Referring Provider Specialty [facility] Referred Organization [facility] Referred Provider Sai Martinez Referred Address ,[place], [place],[address] Referred Provider Specialty Surgery Referral Priority Routine General Notes Es Camilo 11:38:02 AM >received today, attachments made, notes locked, referral faxed Reason 01/28/23 Access Or tho - B shoulder pain L>R - hopes for injections. Diagnosis 1 Pain in right should er (M25.511) Referral Organization [facility] [employer] [facility] omra Referring Provider First Name Jeremy Referring Provider Last Name Sona Referring Provider [facility] [employer] Referred Organization [facility] Referred Provider Barbie Jesus Referred Address ,[place], [place],[address] Referred Provider Specialty Orthopaedic Surgery Referral Priority [...] in right should er (M25.511) Referral Organization [facility] Lisha nelson Referring Provider First Name Jeremy Referring Provider Last Name Sona Referring Provider Specialty [facility] Referred Organization [facility] Referred Provider Barbie Jesus Referred Address ,[place], [place],[address] Referred Provider Specialty Orthopaedic Surgery Referral Priority [...] 8:19am Bronchitis January 21, 2025 9:26a m Chief Complaint Admit Date Swollen Glands May 31, 2025 1 :27pm Reason for Visit Admit Date Chronic coughing May 31, 2025 1 :27pm Additional Source Comments REASON FOR VISIT (unrecogniz [...] call back reinier. 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 dical Specialists [facility] DATE CREATED AUTHOR AUTHOR'S ORGANIZ ATION 05/23/2024 [facility] DATE CREATED AUTHOR AUTHOR'S ORGANIZ ATION 05/29/2024 [facility] DATE CREATED AUTHOR AUTHOR'S ORGANIZ ATION 06/12/2024 [facility] DATE CREATED AUTHOR AUTHOR'S ORGANIZ ATION 11/06/2024 [facility] DATE CREATED AUTHOR AUTHOR'S ORGANIZ ATION 11/11/[address] [facility] DATE CREATED AUTHOR AUTHOR'S ORGANIZ ATION 05/29/2025 [facility] Patient Care team informatio n (unrecognized [...] Provider Active Start : October 23, 2023 [employer] Relationship Specialty Start Date End Date Jeremy Magallanes MD [address] [place] [address] PCP - General Family Medicine 01/23/23 Team Status: Inactive Member Role Status Dates Jeremy Magallanes MD Attending Provider Active St art: September 13, 2023 End: September 13, 2023 [employer] Relationship Specialty Start Date End Date Jeermy Magallanes MD [address] [facility] [place] [phone] Referring Family Medicine 05/12/24 [employer] Relationship Specialty Start Date End Date Jeremy Magallanes MD [address] [facility] [address] PCP - General Family Medicine 01/23/23 [employer] Relationship Specialty Start Date End Date Jeremy Magallanes MD [address] [place] [phone] PCP - General Family Medicine 01/23/23 [employer] Relationship Specialty Start Date End Date Jeremy Magallanes MD [address] [place] [address] PCP - General Family Medicine 01/23/23 [employer] Relationship Specialty Start Date End Date Jeremy Magallanes MD [address] [facility] [place] [address] PCP - General Family Medicine 06/03/19 [employer] Relationship Specialty Start Date End Date Jeremy Magallanes MD [address] [facility] [place] [address] PCP - General Family Medicine 06/03/19 [employer] Relationship Specialty Start Date End Date Jeremy Magallanes MD [address] [facility] [place], [place] [phone] PCP - General Family Medicine 06/03/19 [employer] Relationship Specialty Start Date End Date Jeremy Magallanes MD [address] [place] [address] PCP - General Family Medicine 06/03/19 Team [...] February 16, 2025 End: February 16, 2025 Team Status: Inactive Member Role Status Dates Jeremy Magallanes MD Primary Care Provider Active Start: May 31, 2025 End: May 31, 2025 Jeremy Magallanes MD Attending Provider Active St art: May 31, 2025 End: May 31, 2025 Goals (unrecognized section and content) Goals may be documented in a n alternate section Source Comments (unrecognize d section and content) In the event this informatio n is protected by the Federal Confidentiality of Alcohol and Drug Abuse Patient Records regulations: The Federal rules restrict any use of the information to criminally investigate or prosecute any alcohol or drug abuse patient.[facility] FOR RECORDS PERTAINING TO PATIENTS [...] BE BASED ON THE PRIMARY CLINICAL RECORDS. [facility] [employer] [facility]. provides no warranty or guarantee of the accuracy or completeness of information in this document.
== END 2025-06-03 08:14 | disposition home or self-care (01) ==
LOC: RAD 08:14
PROVIDERS: PCP Family Medicine; Visit Provider Family Medicine
DX: R05.3 Chronic cough (principal)
CPT/HCPCS: 71046

== ENCOUNTER 2025-06-19 20:07 | Emergency (ER) | payer MEDICARE, MEDICAID, SELFPAY ==
--- OUTSIDE RECORDS SUMMARY | 2025-06-19 20:16 | XMS_ITS | Encounter Summary ---
Author Organization [facility] Address [address] [place] [address] Care Team Providers Care Belt Back Operator Name Role Phone Hannah Gallo MD Primary Care Provider [phone] Encounter Details DateTypeDepartmentCare Team (Latest Contact Info)Eowfjwbcjen50/21/2024Clinisync Result Encounter [facility] External Department Unsolicited Malathi Jimenez MD [address] [facility] [address] [place] [address] Social History Tobacco UseTypesPacks/DayYears UsedDateSmoking Tobacco: Every DayCigarettes Smokeless Tobacco: NeverAlcohol UseStandard Drinks/WeekCommentsNever0 (1 standard drink = 0.6 oz pure alcohol)Caffine- SodaSex and Gender Information ValueDate RecordedSex Assigned at MlatlEiuj07/03/2024 9:53 AM ESTLegal SexMale 12/17/2022 8:35 PM EDTGender YgwhrlmdPtad97/03/2024 9:53 AM ESTSexual FaxfjdtgrncKjchdeni67/03/2024 9:53 AM ESTdocumented as of this encounter Plan of Treatment Not on file documented as of this encounter Procedures Procedure NamePriorityDate/TimeAssociated DiagnosisCommentsXR CINERADIOGRAPHY 04/08/2024 10:57 AM EDT documented in this encounter Results * XR CINERADIOGRAPHY (04/08/2024 10:57 AM EDT)Anatomical RegionLaterality ModalityOtherSpecimen (Source)Anatomical Location / LateralityCollection Method / VolumeCollection TimeReceived Time04/08/2024 10:57 AM EDT Narrative 04/08/2024 11:00 AM EDT [facility] ?[address] ? [place] [address] ? Fluoroscopy Report ? Signed ? Patient: NICHOLAS ZIEGLER J ?MR#: [id number] ?? : 1960 ?Acct:[id number] ?? Age/Sex: 63 / M ?ADM Date: 04/08/24 ?? Loc: [place] ? Attending Dr: Malathi Jimenez M.D. ? Ordering Physician: Malathi Jimenez M.D. ?? Date of Service: 04/08/24 ?? Procedure(s): [place] cineradiography ?? Accession Number(s): [id number] ? cc: Hannah Gallo M.D.; Malathi Jimenez M.D. ? [facility] ? [address] ? [place] [address] ? Patient Name: ?? NICHOLAS ZIEGLER ? MRN: [facility]:[id number] ? date: 1960 ?Sex: M ?? Assigned Patient Location: [place] ?? Current Patient Location: [place] ?? Accession/Order Number: [id number] ?? Exam Date: 04/08/2024 ??08:45 ?Report Date: 04/08/2024 ??10:57 ? At the request of: ?? MALATHI ??BARBARA ? Procedure: ??[place] cineradiography ? EXAMINATION: FL barium swallow, [place] cineradiography ? HISTORY: Pharyngoesophageal Dysphagia ? COMPARISON: No relevant comparison available. ? TECHNIQUE: A swallowing evaluation was performed with fluoroscopy in the usual ? manner. Standard level fluoroscopic mode of operation utilized. ? FINDINGS: ?? ORAL PHASE: Normal deglutition. ?? PHARYNGEAL PHASE: Normal swallowing. ?? ASPIRATION: None. ?? STRUCTURE: Marked narrowing versus incomplete opening of the gastroesophageal ?? valve, 4 mm in maximum diameter during the study. Swallowed oral contrast ?? accumulates within the esophagus with intermittent slight opening of the ?? gastroesophageal valve allowing passage. Tertiary waves develop within the ?? distal esophagus. Patient swallowed a 12 mm diameter barium tablet which would ? not pass through the gastroesophageal valve. Tablet eventually dissolved and ?? passed into the stomach. ?? OTHER: Negative. ? FL/FL cineradiography ?? IMPRESSION: ? 1. Marked narrowing/incomplete opening of gastroesophageal valve. No mucosal ?? irregularity to suggest a mass, but direct visualization is recommended. ?? 2. Development of tertiary waves within the esophagus after fluid has ?? accumulated and sat in the distal esophagus. ? Electronically authenticated by: DAKOTA ??YOSEF ?? Date: 04/08/2024 ??10:57 ? Dictated By: ?Dakota Linn M.D. ? Signed By: ?04/08/24 1100 ? DD/ 1057 ? TD/TT: ? Rnfa: Procedure Note Radiology, Radiologist, MD - 04/08/2024 [place] [address] Fluoroscopy Report Signed Patient: NICHOLAS ZIEGLER JMR#: [id number] : 1960Acct:[id number] Age/Sex: 63 / MADM Date: 04/08/24 Loc: [place] Attending Dr: Malathi Jimenez M.D. Ordering Physician: Malathi Jimenez M.D. Date of Service: 04/08/24 Procedure(s): [place] cineradiography Accession Number(s): [id number] cc: Hannah Gallo M.D.; Malathi Jimenez M.D. The [place] [address] Patient Name: NICHOLAS ZIEGLER MRN: [id number] date: 1960 Sex: M Assigned Patient Location: [place] Current Patient Location: [place] Accession/Order Number: [id number] Exam Date: 04/08/2024 08:45 Report Date: 04/08/2024 10:57 At the request of: MALATHI JIMENEZ Procedure: [place] cineradiography EXAMINATION: [place] barium swallow, [place] cineradiography [...] M.D. Signed By:04/08/24 1100 DD/ 1057 TD/TT: Rnfa: Authorizing ProviderResult TypeResult StatusHilary H Barbara MDCLINISYNC IMAGING Final Result documented in this encounter Visit Diagnoses Not on filedocumented in this encounter Care Teams Team MemberRelationshipSpecialtyStart DateEnd Date Hannah Gallo MD PCP - GeneralFamily Medicine01/23/23documented as of this encounter
--- OUTSIDE RECORDS SUMMARY | 2025-06-19 20:16 | XMS_ITS | Encounter Summary ---
Author Organization [facility] Address [address] [place] [address] Care Team Providers Care Marine Electronics Technician Name Role Phone Hannah Gallo MD Primary Care Provider [phone] Encounter Details DateTypeDepartmentCare Team (Latest Contact Info)Kodgsilsynm99/21/2024Clinisync Result Encounter [facility] External Department Unsolicited Malathi Jimenez MD [address] [facility] [address] [place] [address] Social History Tobacco UseTypesPacks/DayYears UsedDateSmoking Tobacco: Every DayCigarettes Smokeless Tobacco: NeverAlcohol UseStandard Drinks/WeekCommentsNever0 (1 standard drink = 0.6 oz pure alcohol)Caffine- SodaSex and Gender Information ValueDate RecordedSex Assigned at CdddbRflp09/03/2024 9:53 AM ESTLegal SexMale 12/17/2022 8:35 PM EDTGender QcywbpmmZxwa33/03/2024 9:53 AM ESTSexual GnmedbbtjynJhmmqjvb05/03/2024 9:53 AM ESTdocumented as of this encounter Plan of Treatment Not on file documented as of this encounter Procedures Procedure NamePriorityDate/TimeAssociated DiagnosisCommentsFL MODIFIED BARIUM RJZSDWJ6304/08/2024 10:57 AM EDT documented in this encounter Results * [place] MODIFIED BARIUM SWALLOW (04/08/2024 10:57 AM EDT)Anatomical Region LateralityModalityRadiographic ImagingSpecimen (Source)Anatomical Location / LateralityCollection Method / VolumeCollection TimeReceived Time04/08/2024 10:57 AM EDT Narrative 04/08/2024 11:00 AM EDT [facility] ?[address] ? [place] [address] ? Fluoroscopy Report ? Signed ? Patient: NICHOLAS ZIEGLER ?MR#: [id number] ?? : 1960 ?Acct:[id number] ?? Age/Sex: 63 / M ?ADM Date: 04/08/24 ?? Loc: [place] ? Attending Dr: Malathi Jimenez M.D. ? Ordering Physician: Malathi Jimenez M.D. ?? Date of Service: 04/08/24 ?? Procedure(s): FL barium swallow ?? Accession Number(s): [id number] ? cc: Hannah Gallo M.D.; Malathi Jimenez M.D. ? [facility] ? [address] ? [place] [address] ? Patient Name: ?? NICHOLAS ZIEGLER ? MRN: [facility]:[id number] ? date: 1960 ?Sex: M ?? Assigned Patient Location: [place] ?? Current Patient Location: [place] ?? Accession/Order Number: [id number] ?? Exam Date: 04/08/2024 ??08:45 ?Report Date: 04/08/2024 ??10:57 ? At the request of: ?? MALATHI ??DANIEL ? Procedure: ??FL barium swallow ? EXAMINATION: FL barium swallow, FL cineradiography [...] the stomach. ?? OTHER: Negative. ? FL/FL barium swallow ?? IMPRESSION: ? 1. Marked narrowing/incomplete opening [...] 1100 ? DD/ 1057 ? TD/TT: ? Ap Processor: Procedure Note Radiology, Radiologist, - 04/08/2024 [place] [address] Fluoroscopy Report Signed Patient: NICHOLAS ZIEGLER JMR#: [id number] : 1960Acct:[id number] Age/Sex: 63 / MADM Date: 04/08/24 Loc: [place] Attending Dr: Malathi Jimenez M.D. Ordering Physician: Malathi Jimenez M.D. Date of Service: 04/08/24 Procedure(s): FL barium swallow Accession Number(s): [id number] cc: Hannah Gallo M.D.; Malathi Jimenez M.D. [facility] [place] [id number] Patient Name: NICHOLAS ZIEGLER MRN: [id number] date: 1960 Sex: M Assigned Patient Location: [place] Current Patient Location: [place] Accession/Order Number: [id number] Exam Date: 04/08/2024 08:45 Report Date: 04/08/2024 10:57 At the request of: MALATHI JIMENEZ Procedure: FL barium swallow EXAMINATION: FL [...] LINN Date: 04/08/2024 10:57 Dictated By: Dakota iLnn M.D. Signed By:04/08/24 1100 DD/ 1057 TD/TT: Ap Processor: Authorizing ProviderResult TypeResult StatusHilafelicia Jimenez MDIMG XR PROCEDURES Final Result documented in this encounter Visit Diagnoses Not on filedocumented in this encounter Care Teams Team MemberRelationshipSpecialtyStart DateEnd Date Hannah Gallo MD PCP - GeneralFamily Medicine01/23/23documented as of this encounter
--- OUTSIDE RECORDS SUMMARY | 2025-06-19 20:16 | XMS_ITS | Clinical Summary ---
Author Organization [facility] Address [address] [place] [address] Care Team Providers Care Air Brush Decorator Name Role Phone Hannah Gallo MD Primary Care Provider [phone] Allergies Active AllergyReactionsCriticalityNoted DateCommentsDuloxetine HclGI intolerance 04/07/20249461Phcapyne77/31/2024 Other Reaction(s): Hives GusetncjjNztjZoy48/16/2019 hives Iodinated Contrast TziyzDagzGjf55/16/2019 hives Gkgmspasf10/31/2024 Other Reaction(s): Hives Uhvwmbxqea76/31/2024 Other Reaction(s): shortness of breath Ykdamettfm49/31/2024 Other Reaction(s): shortness of breath Medications MedicationSigDispense QuantityRefillsLast FilledStart DateEnd DateStatus glipiZIDE-metFORMIN (Metaglip) 5-500 MG tablet Take 2 tablets by mouth in the morning and 2 tablets before bedtime.07/19/2023 Active acetaminophen-codeine (Tylenol w/ Codeine #3) 300-30 MG tablet Take 1 tablet by mouth every 6 (six) hours if xuazae9210/03/2023ctive tiZANidine (Zanaflex) 4 MG tablet Take 4 mg by mouth every 6 (six) hours if needed for muscle fzvvtp5410/14/2023 Active Active Problems ProblemNoted DateDiagnosed DateLiver mass04/07/2024Kidney cysts04/07/2024Neck mass04/07/20244066Cdbfmhiagj25/13/2024hronic obstructive pulmonary disease, psqfnvjykqn47/13/2024Lumbar pain03/31/2024Mass of left submandibular region 03/31/2024Type II diabetes jorrqacv58/13/2024ositive colorectal cancer screening using Cologuard test03/27/2023Epigastric pain03/27/2023allbladder polyp03/27/2023Esophageal eriypwfdw44/09/2023rthritis of left acromioclavicular joint03/25/2023Incomplete tear of left rotator cuff03/25/2023Internal derangement of left /07/2023Rotator cuff arthropathy of left shoulder 01/28/2023Rotator cuff impingement syndrome of right byjrewgl55/12/2023 Immunizations ImmunizationAdministration DatesNext DueInfluenza, injectable, MDCK, preservative free, /15/2018Influenza, injectable, quadrivalent, preservative free05/16/2017,06/28/2016Influenza, seasonal, injectable, preservative free05/25/2015Pneumococcal Conjugate PCV Family History Medical HistoryRelationNameCommentsCancerFatherRelationNameStatusCommentsBrother 2FatherDeceasedMaternal GrandfatherDeceasedMaternal GrandmotherDeceasedMother DeceasedPaternal GrandfatherDeceasedPaternal GrandmotherDeceasedSister2 sisters -- 1 sister Social History Tobacco UseTypesPacks/DayYears UsedDateSmoking Tobacco: Every DayCigarettes Smokeless Tobacco: Never Tobacco Cessation:Ready to Q uit: Not Asked; Counseling Given: Not Answered Alcohol UseStandard Drinks/WeekCommentsNever0 (1 standard drink = 0.6 oz pure alcohol)Caffine- SodaSex and Gender InformationValueDate RecordedSex Assigned at FlaygJimh59/03/2024 9:53 AM ESTLegal XfbXftk3212/17/2022 8:35 PM EDTGender ZljhjjavAomi74/03/2024 9:53 AM ESTSexual IqcmvuodrfrWheshmga02/03/2024 9:53 AM EST Last Filed Vital Signs Vital SignReadingTime TakenCommentsBlood Ouuwidup362/8808/ 10:04 AM EDT Pulse--Ficpsxsneis73.2 ??C (97.2 ??F)06/03/2023 8:17 AM EDTRespiratory Rate-- Oxygen Saturation--Inhaled Oxygen Concentration--Udvxxa332 kg (235 lb)04/07/2024 10:04 AM NKQSteghs816.3 cm (5' 11 )04/07/2024 10:04 AM EDTBody Mass Index32.78 04/07/2024 10:04 AM EDT Plan of Treatment Not on file Insurance Care Teams Team MemberRelationshipSpecialtyStart DateEnd Date Hannah Gallo MD PCP - GeneralFamily Medicine01/23/23
--- OUTSIDE RECORDS SUMMARY | 2025-06-19 20:16 | XMS_ITS | Clinical Summary ---
Author Organization [facility] Address [address] [place] [address] Care Team Providers Care Billing Spec Name Role Phone Hannah Gallo MD Unavailable [phone] Social History Tobacco UseTypesPacks/DayYears UsedDateSmoking Tobacco: Never AssessedSex and Gender InformationValueDate RecordedSex Assigned at BirthNot on fileLegal Sex Male07/20/2012 8:58 AM ESTGender IdentityNot on fileSexual OrientationNot on file Plan of Treatment Not on file Insurance Care Teams Team MemberRelationshipSpecialtyStart DateEnd Date Hannah Gallo MD [address] [place] [address] ReferringFamily Medicine05/12/24
--- OUTSIDE RECORDS SUMMARY | 2025-06-19 20:16 | XMS_ITS | Clinical Summary ---
Author Organization [facility] Address [address] [place] [address] Care Team Providers Care Hog Worker Name Role Phone Unavailable Primary Care Provider Unavailabl e Source Comments The following information is NOT included in Care Everywhere downloads:Psychiatric notes, ECG results, Cardiac Rehab notes, Pulmonary Function notes, data from [facility] (includes but not limited toPregnancy data,audiograms, eye exams, pre-surgical evaluation notes, well-child exam data).[facility] Family History Medical HistoryRelationNameCommentsNeurologic DiseaseOthernoRelationNameStatus CommentsOther Social History Tobacco UseTypesPacks/DayYears UsedDateSmoking Tobacco: Every DayCigarettes Alcohol UseStandard Drinks/WeekCommentsNo0 (1 standard drink = 0.6 oz pure alcohol)Substance UseTypesUse/WeekCommentsNoSex and Gender InformationValueDate RecordedSex Assigned at BirthNot on fileLegal ZxbVegt20/04/2012 9:49 AM EST Gender IdentityNot on fileSexual OrientationNot on file Last Filed Vital Signs Vital SignReadingTime TakenCommentsBlood Hnudbzuh527/7803 10:45 AM EDT Mpxyn644911/14/2010 10:45 AM SYZEitrdjkcqhf40.6 ??C (97.9 ??F)11/14/2010 10:45 AM EDTRespiratory Rate--Oxygen Saturation--Inhaled Oxygen Concentration--Weight 103.3 kg (227 lb 12.8 oz)11/14/2010 10:45 AM EDTHeight--Body Mass Index-- Plan of Treatment Health MaintenanceDue DateLast ZrztFzudvghpYfotbuppzsg1960Hepatitis C Pxoxnqzr62/04/1978Tdap Lmgqcdh9505/22/1978Hepatitis A (HAV) Vaccine (optional start 19+ years)1979Tetanus (Td or Tdap) Otsevhb4605/22/1979Cholesterol 1995CRC Hicfmyrpb19/04/2005Cologuard (Stool DNA)2005FIT2005 Pneumococcal Vaccine(s) (50+ yrs) (1 of 1 - PCV)2010Shingles (RZV) Vaccine (1 of 2)2010Hepatitis B (HBV) Vaccine (optional start 60+ years)2020 COVID-19 Vaccine (1 - 2024-26 season)2025Influenza Vaccine (#1)2025 Abdominal Aortic Aneurysm Thduivt9905/22/2025RSV vaccine (adult) (1 - 1-dose 75+ series)[address] [place] [address]
--- OUTSIDE RECORDS SUMMARY | 2025-06-19 20:16 | XMS_ITS | Clinical Summary ---
Author Organization [employer] [facility] Address [id number] [address] [place] [address] Care Team Providers Care Fund Manager Name Role Phone Hannah Gallo MD Primary Care Provider [phone] Allergies Active AllergyReactionsCriticalityNoted DateCommentsIbuprofenHives,RashLow 06/03/2019 hives Iodinated Contrast MediaHives,RojuNha8206/03/2019 hives Medications MedicationSigDispense QuantityRefillsLast FilledStart DateEnd DateStatus acetaminophen-codeine (TYLENOL with CODEINE #4) 300-60 mg per tablet Take 1-2 tablets by mouth in the morning and 1-2 tablets before bedtime.Active albuterol (PROVENTIL HFA;VENTOLIN HFA) 90 mcg/actuation inhaler Inhale 2 puffs every 6 (six) hours as needed for wheezing. Pt states he only uses this twice a year, has not used in the last 3monthsActive acetaminophen-codeine (TYLENOL #3) 300-30 mg per tablet Take 2 tablets by mouth every 4 (four) hours as needed.Active ondansetron ODT (ZOFRAN ODT) 4 mg disintegrating tablet Dissolve 1 tablet (4 mg total) on tongue once.04/27/2024ctive glipiZIDE-metFORMIN (METAGLIP) 5-500 mg per tablet Take 1 tablet by mouth 2 (two) times daily at 0800 and 1200.07/19/2023ctive omeprazole (PriLOSEC) 40 mg capsule Indications:Gastroesophageal reflux disease, unspecified whether esophagitis presentTake 1 capsule (40 mg total) by mouth in the morning. 60 capsule 05/27/2024ctive Active Problems No known active problems Family History Medical HistoryRelationNameCommentsCancerFatherLiver cancerFatherCancerMaternal AuntCancerMaternal GrandmotherColon cancerMaternal GrandmotherCancerMotherLung cancerMotherRelationNameStatusCommentsFatherDeceasedMaternal AuntDeceased Maternal GrandmotherDeceasedMotherDeceased Social History Tobacco UseTypesPacks/DayYears UsedDateSmoking Tobacco: Every DaySmokeless Tobacco: NeverAlcohol UseStandard Drinks/WeekCommentsNever0 (1 standard drink = 0.6 oz pure alcohol)AUDIT-CAnswerDate RecordedFrequency of Alcohol Consumption Never06/03/2019Average Number of DrinksNot on file06/03/2019Frequency of Binge DrinkingNot on file06/03/2019ChildcareAnswerDate RecordedChildcareUnknown 06/01/2019EmploymentAnswerDate EpgsgsgcZiqhnpytgyQlfynln14/14/2019Purpose - Life AnswerDate RecordedPurpose and direction in tmrzUpgbllo04/11/2021ex and Gender InformationValueDate RecordedSex Assigned at BirthNot on fileLegal SexMale 06/01/2019 10:38 AM EDTGender IdentityNot on fileSexual OrientationNot on file Last Filed Vital Signs Vital SignReadingTime TakenCommentsBlood Pressure--Pulse--Temperature-- Respiratory Rate--Oxygen Saturation--Inhaled Oxygen Concentration--Fdnqax290.3 kg (230 lb)05/27/2024 2:56 PM OTYFukshi882.3 cm (5' 9 )05/27/2024 2:56 PM EDT Body Mass Index33.9705/27/2024 2:56 PM EDT Plan of Treatment Health MaintenanceDue DateLast DoneCommentsDepression Oogffackt57/04/1972Zoster (Shingles) Vaccine (1 of 2)2010Influenza Hsdcieu91, 05/17/2017, 05/16/2017, Additional history existsFall Risk Oetkuukoa35/04/2025 Adult BMI Uulsmvpuf82Tobacco Veidprwcr33 DTaP,Tdap and Td Vaccines (3 - Td or Tdap)6108/28/2015, 05/25/2015 Medical Devices Not on file Insurance Care Teams Team MemberRelationshipSpecialtyStart DateEnd Date Hannah Gallo MD [address] [place] [address] PCP - GeneralFamily Amzwviyg17/16/19
[2025-06-19 20:17] VITALS: BP 152/92; PULSE 68; TEMP 36.7; O2SAT 99; BMI 31.4
--- OUTSIDE RECORDS SUMMARY | 2025-06-19 20:17 | XMS_ITS | CCD ---
Author Organization [facility] Care Team Providers Care Dewer Name Role Phone Ronnie Kesha Unavailable Chepe Harriet Unavailable Jeremy Magallanes Unavailable SONA, DR JEREMY Jovel Admitting Unavailable MAGALLANES, DR JEREMY Jovel Attending Unavailable MAGALLANES, DR JEREMY Jovel Primary Care Unavailable MAGALLANES, DR JEREMY Jovel Consulting Unavailable TAVERASRUBI Consulting Unavailable OLEXA, KESHA Admitting Unavailable OLEXA, KESHA Attending Unavailable MAGALLANES, DR JEREMY Jovel Primary Care Unavailable ROARING BRANCH, DR BARBIE Goldberg Consulting Unavailable OLEXA, KESHA [...] Consulting Unavailable JEREMY MAGALLANES Primary Care Physician [phone] Jeremy Magallanes MD Primary Care Provider WILLIE, BARBIE Tellez Attending Unavailable POCOS, BARBIE Tellez Referring Unavailable POCOS, BARBIE Tellez Attending Unavailable MALATHI SANCHEZ Attending Unavailable JEREMY MAGALLANES Referring Unavailable POCDORON, JIN Attending Unavailable Jeremy Magallanes MD Unavailable PRIYANKA BENITES Attending Unavailable JEREMY MAGALLANES Referring Unavailable JEREMY MAGALLANES Primary Care Unavailable MD Jeremy Magallanes Primary Care Provider DO Bill Henry Attending Provider Jeremy Magallanes Primary Care Unavailable Bill Henry Attending Unavailable Bill Henry Admitting Unavailable Jeremy Magallanes MD Primary Care Provider CHIKIS, Ligia Boggs Attending Unavailable CHIKIS, Ligia T Admitting Unavailable CHIKISLigia OLIVA T Attending Unavailable CHIKISLigia OLIVA T Attending Unavailable CHIKISLigia OLIVA T Admitting Unavailable Jeremy Magallanes MD Primary Care Provider Jeremy Magallanes MD Attending Provider Arnoldo Somers MD Attending Provider Gifrantz JACOB, Andrius Ruth Attending Unavailable Giedrakaterine JACOB, Andrius Vytautchela Attending Unavailable Gifrantz JACOB, Andrius Vytautas Attending Unavailable Gifrantz JACOB, Andrius Vytautchela Attending Unavailable Shahzad JACOB, Andrius Vsharlene Attending Unavailable Jeremy Magallanes MD Primary Care Provider Jermey Magallanes MD Attending Provider Jeremy Magallanes MD Primary Care Provider [phone] Allergies Allergy ClassificationReported Allergen(s)Allergy TypeDate of OnsetReaction(s) Facility (20 sources)IbuprofenDrug AllergyhiInnotrieve Other (20 sources)olodaterol / tiotropiumDrug Allergyshortness of breathSpokane [employer] Other (20 sources)CT Scan dyePropensity to adverse reactionshiAdsWizz [employer] Other (14 sources)Ibuprofen; Translations: [IBUPROFEN]Drug Wwvyuvc46-95-5433vlwcfIiu [facility] Repository (2 sources)Iodine (And Iodine Containting Drugs)Drug allergy (disorder) 12-79-4619Rlg [facility] Repository (1 source)NSAIDsDrug allergy (disorder)[facility] Repository (20 sources)fentaNYLDrug Baptnkp04-84-9527HtdefywMercy Health [facility] (14 sources)IbuprofenDrug Fojhfkx10-97-8461LxjfRusk [facility] Center (20 sources)OfloxacinDrug Iftnddi23-31-9895KoqwvjoMercy Health Willard Hospital (3 sources)zafirlukastDrug Hoxxqoj69-46-6878ZridnqyOezer [employer] Other (20 sources)Zafirlukast *ANTIASTHMATIC AND BRONCHODILATOR AGENPropensity to adverse reactionsMercy McCune-Brooks Hospital [employer] Other (20 sources)Ibuprofen & Diet Manage Prod *ANALGESICS - ANTI-INPropensity to adverse reactionsMercy McCune-Brooks Hospital [employer] Other (3 sources)Allergies ReconciledPropensity to adverse reactionsMercy McCune-Brooks Hospital [employer] Other (20 sources)Iodinated contrast media (substance)Drug ppuurhj50-85-1152Zvqv, [facility] [employer] Other (3 sources)patient allergy list reviewed by nurse or physiciaPropensity to adverse zjhgxmini88-76-1381Tbvsdnk:[facility] HospitalFormabilio [employer] Other (17 sources)olodaterolDrug Kvdwsny95-18-1789cjsfotdfoSt. John of God Hospital (17 sources)tiotropiumDrug Tnjlpct11-92-6021ljnooocquTrinity Health System West Campus (12 sources)Iodinated Contrast Media; Translations: [IODINATED CONTRAST MEDIA] Allergy to vnaosuaig74-65-0307PmlxfWlkaewwchMercy Health [facility] (11 sources)Ibuprofen & Diet Manage Prod *Allergy to -[phone] State Harding HospitalComment on above:Free Text Allergy: Ibuprofen & Diet Manage Prod *ANALGESICS - ANTI-IN (11 sources)Zafirlukast *ANTIASTHMATIC ANDAllergy to dkkootiuc35-80-7741LmdcdOhio State Harding HospitalComment on above:Free Text Allergy: Zafirlukast *ANTIASTHMATIC AND BRONCHODILATOR AGEN (5 sources)DULoxetineDrug Zgiymho75-89-2706MO [facility] (3 sources)cefdinirDrug Xkzapxg21-40-2631QlirudwsSkvhqvvcyAccess Hospital DaytonComment on above:nausea, vomiting Medications Current Medications MedicationDrug Class(es)DatesSig (Normalized)Sig (Original)acetaminophen 300 mg / codeine phosphate 30 mg oral tablet (20 sources)Opioid AgonistStart: 66-95-1865txiy 1 tablet by mouth twice daily as neededAcetaminophen-Codeine 300-30 mg tablet Active 1 TAB PO Twice daily as needed February 16, 2025 12:00amComplies with drug therapyStart: 12-05-2023 End: 55-41-2525qojw 1 tablet by mouth every eight hours as needed for pain Acetaminophen-Codeine 300-30 mg tablet Discontinued 1 TAB PO Every 8 hours as needed for pain 90 30April 2023 1:56pm February 16, 2025 2:48pmStart: 10-03-2023 End: 76-86-0067mlzq 1 tablet by mouth every six hours as neededacetaminophen- codeine (Tylenol w/ Codeine #3) 300-30 MG tablet Take 1 tablet by mouth every 6 (six)hours if needed 10/03/2023 ActiveStart: 59-71-0418kvus 1 tablet by mouth every six hoursAcetaminophen-Codeine 300-30 MG 1 tablet as needed Orally every 6 hrs for 30 days Aug, ActiveStart: 65-73-7657hxob 1 tablet by mouth every six hoursAcetaminophen-Codeine 300-30 MG 1 tablet as needed Orally every 6 hrs for 30 days Aug, ActiveStart: 58-93-3289cxth 1 tablet by mouth every six hours as neededAcetaminophen-Codeine #3 300-30 MG 1 tablet as needed Orally every 6 hrs for 30 days Apr, ActiveStart: 76-09-7378bxxg 1 tablet by mouth every six hoursAcetaminophen-Codeine #3 300-30 MG 1 tablet as needed Orally every 6 hrs for 30 days Apr, ActiveStart: 15-34-4287ycta 1 tablet by mouth every six hoursAcetaminophen-Codeine #3 300-30 MG 1 tablet as needed Orally every 6 hrs for 30 days Mar, ActiveStart: 27-47-4015wupy 1 tablet by mouth every six hoursAcetaminophen-Codeine #3 300-30 MG 1 tablet as needed Orally every 6 hrs for 30 days Feb, ActiveStart: 62-95-4835mqzt 1 tablet by mouth every six hoursAcetaminophen-Codeine #3 300-30 MG 1 tablet as needed Orally every 6 hrs for 30 days Feb, ActiveStart: 90-62-0607psbm 1 tablet by mouth every six hoursAcetaminophen-Codeine #3 300-30 MG 1 tablet as needed Orally every 6 hrs for 30 days Jan, ActiveStart: 58-98-7376krlu 1 tablet by mouth every six hoursAcetaminophen-Codeine #3 300-30 MG 1 tablet as needed Orally every 6 hrs for 30 days December, ActiveStart: 99-66-6207miwp 1 tablet by mouth every six hoursAcetaminophen-Codeine #3 300-30 MG 1 tablet as needed Orally every 6 hrs for 30 days Nov, ActiveStart: 10-31-2022 Acetaminophen-Codeine #4 300-60 MG 2 Orally bid prn for 30 days Oct, ActiveStart: 16-75-8954Nhmupiehoslru-Codeine #4 300-60 MG 2 Orally bid prn for 30 days Sep, Activetake 2 tablets by mouth every four hours as needed acetaminophen-codeine (TYLENOL #3) 300-30 mg per tablet Take 2 tablets by mouth every 4 (four) hours as needed. Activeacetaminophen-codeine (TYLENOL with CODEINE #4) 300-60 mg per tablet Take 1-2 tablets by mouth in the morning and 1- 2 tablets before bedtime. Activetake 1 tablet by mouth every six hours Acetaminophen-Codeine #4 300-60 MG 1 tablet as needed Orally every 6 hrs Active [id number] 200 actuat albuterol 0.09 mg/actuat metered dose inhaler (20 sources)beta2-Adrenergic AgonistStart: 01-12-2025 End: 52-83-6648eaxh 2 puff(s) by inhalation every four hours as neededAlbuterol Sulfate 90 mcg/actuation HFA aerosol inhaler Active 0 .ROUTE .COMPLEX 8.5 May 27, 2025 2:24pm INHALE 2 PUFFS EVERY 4 HOURS NEEDED FOR WHEEZE OR FOR SHORTNESS OF BREATH Complies withdrug therapyStart: 05-01-2024 End: 46-25-2543wfjb 1 puff(s) by inhalation every four hours as needed for wheezingAlbuterol Sulfate 90 mcg/actuation HFA aerosol inhaler Discontinued 2 PUFF INHALATION Every 4 hoursas needed for shortness of breath or wheezing 8.5 October 09, 2024 4:35pm January 12, 2025 12:22pmStart: 06-25-2023 End: 01-93-1403dfml 2 puff(s) by inhalation every four hoursalbuterol HFA 90 mcg/act inhaler Inhale 2 puffs every 4 (four) hours if needed 06/25/2023 04/07/2024 Discontinued (Therapy completed)Start: 95-45-2676pnbj 2 puff(s) by inhalation every four hours as neededAlbuterol Sulfate HFA 108 (90 Base) MCG/ACT 2 puff Inhalation every 4 hrs prn Aug, ActiveStart: 89-29-9152jfyv 2 puff(s) by inhalation every four hours as neededAlbuterol Sulfate HFA 108 (90 Base) MCG/ACT 2 puff Inhalation every 4 hrs prn Jun, ActiveStart: 59-54-3962optz 2 puff(s) by inhalation every four hours as neededAlbuterol Sulfate HFA 108 (90 Base) MCG/ACT 2 puff Inhalation every 4 hrs prn Jun, Activealbuterol (PROVENTIL HFA;VENTOLIN HFA) 90 mcg/actuation inhaler Inhale 2 puffs every 6 (six) hours as needed for wheezing. Pt states he only uses this twice a year, has not used in the last 3months Activeamoxicillin 875 mg / clavulanate 125 mg oral tablet (6 sources)Penicillin-class AntibacterialStart: 11-10-4091tfol 1 tablet by mouth every twelve hoursAmoxicillin-Pot Clavulanate 875-125 MG 1 tablet Orally every 12 hrs for 10 day(s) Oct, Activeazithromycin 250 mg oral tablet (20 sources)Macrolide AntimicrobialStart: 63-92-6300Ejjtswniwnzk 250 mg tablet Active 0 PO .COMPLEX 6 May 31, 2025 2:12pm For 250 mg dose pack: take 500 mg today (day 1), then 250 mg for 4 days (days 2-5) PO Complies with drug therapyStart: 12-24-2024 End: 07-35-6967Fukjymuqkoay 250 mg tablet Discontinued 0 PO .COMPLEX 6 December 24, 2024 12:00am January 21, 2025 9:38amFor 250 mg dose pack: take 500 mg today (day 1), then 250 mg for 4 days (days 2-5) POStart: 06-17-2024 End: 62-96-2010Hcqxvbwdmcmo 250 mg tablet Discontinued 0 PO .COMPLEX 6 June 17, 2024 12:00am July 23, 2024 11:29am For 250 mg dose pack: take 500 mg today (day 1), then 250 mg for 4 days (days 2-5) POStart: 13-71-1210Xvcqelfqmsaw Active 0 PO .COMPLEX 6 June 17, 2024 12:00am For 250 mg dose pack: take 500 mg today (day 1), then 250 mg for 4 days (days 2-5) POStart: 12-20-2023 End: 96-52-4183Eoiuajsmccoc 250 mg tablet Discontinued 0 PO .COMPLEX 6 December 20, 2023 12:00am March 03, 2024 12:09pm For 250 mg dose pack: take 500 mg today (day 1), then 250 mg for 4 days (days 2-5) POStart: 12-20-2023 End: 07-72-9258Yubgbyuiwvde Discontinued 0 PO .COMPLEX 6 December 20, 2023 12:00am March 03, 2024 12:09pm For 250 mg dose pack: take 500 mg today (day 1), then 250 mg for 4 days (days 2-5) POStart: 19-82-7885Zmzdrtyodnlw 250 MG as directed Orally 2 tabs po today, then 1 tab daily x 4 more days for Sep, Active Start: 31-40-0660Dxhivjqqagap 250 MG as directed Orally 2 tabs po today, then 1 tab daily x 4 more days for 5 May, ActiveStart: 96-59-0736Nyvawsuzmdce 250 MG as directed Orally 2 tabs po today, then 1 tab daily x 4 more days for 5 Apr, ActiveStart: 66-26-5938Lxemorjasuxx 250 MG as directed Orally 2 tabs po today, then 1 tab daily x 4 more days for 5 Nov, Active cetirizine hydrochloride 10 mg oral capsule (5 sources)Histamine-1 Receptor AntagonistStart: 76-27-5115rwht 1 capsule by mouth twice daily as neededCetirizine (Zyrtec) 10 mg capsule Active 10 MG PO Twice daily as needed October 15, 2024 1:00am Complies with drug therapy gabapentin 800 mg oral tablet (1 source)Anti-epileptic AgentStart: 46-28-1940avmovillli (Neurontin) 800 MG tabletglipiZIDE 5 mg / metFORMIN hydrochloride 500 mg oral tablet (20 sources)Biguanide, SulfonylureaStart: 10-22-2024 End: 16-58-5531ldgf 2 tablets by mouth twice dailyGlipizide-Metformin 5-500 mg tablet Active 0 .ROUTE .COMPLEX 360 April 21, 2025 10:31am TAKE 2TABLETS BY MOUTH TWICE DAILY Complies with drug therapyStart: 42-97-7361pukp 2 tablets by mouth in the morningglipiZIDE-metFORMIN (Metaglip) 5-500 MG tablet Take 2 tablets by mouth in the morning and 2 tabletsbefore bedtime. 07/19/2023 Active Start: 07-19-2023 End: 85-30-7330ffij 2 tablets by mouth twice dailyGlipizide-Metformin 5-500 mg tablet Discontinued TAB PO December 04, 2023 12:00am October 22, 2024 11:22am FreeTextSi tab Orally bid; Note: Source Status: Start; Refills: 1; Qty: 360 Tablet; Provider: Sona Young ( )take 1 tablet by mouth twice dailyglipiZIDE-metFORMIN HCl 5-500 MG 1 tablet with a meal Orally bid for 30 days ActivepredniSONE 10 mg oral tablet (20 sources)Start: 01-21-2025 End: 92-93-9497onzz 4 tablets by mouth once daily, then take 3 tablets by mouth once daily, then take 2 tablets bymouth once daily, then take 1 tablet by mouth once dailyPrednisone 10 mg tablet Active 10 MG PO As Directed May 27, 2025 8:16am 4 daily x 2 days, 3daily x 2 days, 2 daily x 2 days, 1 daily x 6 days Complies with drug therapyStart: 12-22-2024 End: 05-99-6051jtba 1 tablet by mouth twice dailyPrednisone 20 mg tablet Discontinued 20 MG PO Twice daily December 22, 2024 12:00am January 21, 2025 9:39am Start: 06-17-2024 End: 85-02-7580fbme 1 tablet by mouth twice dailyPrednisone 20 mg tablet Discontinued 20 MG PO Twice daily August 28, 2024 2:19pm October 15, 2024 10:03amStart: 03-29-5321ckbipsSMYE 10 MG 4 tabs po daily x 2 days, 3 tabs daily x 2 days, 2 tabs daily x 2 days, 1 tab daily x 2 days Orally Once a day for 8 Apr, ActiveStart: 60-33-9969oirs 2 tablets by mouth every twenty- four hourspredniSONE 20 MG 2 tablets Orally Once a day for 5 days Nov, ActivepredniSONE 20 MG TAKE 3 TABLETS BY MOUTH DAILY X 3 DAYS, 2 TABLETS DAILY X 3 DAYS, 1 TABLET DAILY X3 DAYS for 9 Activerosuvastatin calcium 20 mg oral tablet (1 source)HMG-CoA Reductase InhibitorStart: 24-28-5118hpwq 1 tablet by mouth once dailyRosuvastatin 20 mg tablet Active 20 MG PO Daily March 13, 2025 12:00am Complies with drug therapytiZANidine 4 mg oral tablet (7 sources)Central alpha-2 Adrenergic AgonistStart: 97-03-9853vncd 1 tablet by mouth every six hours as neededtiZANidine (Zanaflex) 4 MG tablet Take 4 mg by mouth every 6 (six) hours if needed for muscle spasms 10/14/2023 ActiveStart: 33-11-6281cdqb 1 tablet by mouth at bedtime as neededtiZANidine (Zanaflex) 4 MG tablet TAKE 1/2-1 TABLET BY MOUTH AT BEDTIME NEEDED FOR SPAMS 0 04/23/2023 Active Completed/Discontinued Medications MedicationDrug Class(es)DatesSig (Normalized)Sig (Original)acetaminophen 325 mg / HYDROcodone bitartrate 10 mg oral tablet (20 sources)Opioid AgonistStart: 12-04-2023 End: 47-19-6563vfhk 1 tablet by mouth every six hours as neededStart: 08-13-2023 take 1 tablet by mouth every six hoursStart: 70-81-2150qttm 1 tablet by mouth every six hoursHYDROcodone-Acetaminophen 10-325 MG 1 tablet as needed Orally every 6 hrs for 30 days Jul, ActiveStart: 87-37-4724uzqy 1 tablet by mouth every six hoursHYDROcodone-Acetaminophen 10-325 MG 1 tablet as needed Orally every 6 hrs for 30 days Jul, ActiveStart: 21-74-8450vszv 1 tablet by mouth every six hoursHYDROcodone-Acetaminophen 10-325 MG 1 tablet as needed Orally every 6 hrs for 30 days Jul, ActiveStart: 35-17-7575rjav 1 tablet by mouth every six hoursHYDROcodone-Acetaminophen 10-325 MG 1 tablet as needed Orally every 6 hrs for 30 days Jun, ActiveStart: 96-21-6801bbex 1 tablet by mouth every six hoursHYDROcodone-Acetaminophen 10-325 MG 1 tablet as needed Orally every 6 hrs for 7 days May, ActiveStart: 78-48-6439sgxx 1 tablet by mouth every six hoursHYDROcodone-Acetaminophen 10-325 MG 1 tablet as needed Orally every 6 hrs for 7 days May, ActiveStart: 29-61-1413hflf 1 tablet by mouth every six hoursHYDROcodone-Acetaminophen 10-325 MG 1 tablet as needed Orally every 6 hrs for 7 days May, ActiveStart: 45-10-7927rruc 1 tablet by mouth every six hoursHYDROcodone-Acetaminophen 10-325 MG 1 tablet as needed Orally every 6 hrs for 7 days May, ActiveStart: 29-63-2904JLBFGklaibl- acetaminophen ([place]) 10-325 MG tabletStart: 68-58-9830ytut 1 tablet by mouth every six hoursHYDROcodone-Acetaminophen 10-325 MG 1 tablet as needed Orally every 6 hrs for 7 days May, Activeatorvastatin 20 mg oral tablet (20 sources)HMG-CoA Reductase InhibitorStart: 10-23-2023 End: 23-18-6468luxf 1 tablet by mouth once dailyAtorvastatin 20 mg tablet Discontinued 0 .ROUTE .COMPLEX 90 October 23, 2023 3:27pm December 1649:20am TAKE 1 TABLET BY MOUTH EVERY DAY FOR 30 DAYSStart: 10-23-2023 End: 35-28-8658jfpi 1 tablet by mouth once dailyAtorvastatin 20 mg tablet Discontinued 20 MG PO Daily October 23, 2023 1:00am October 23, 2023 3:27pmStart: 57-27-7213jrtvlfzyrkrr (Lipitor) 20 MG tabletcefdinir 300 mg oral capsule (4 sources)Cephalosporin AntibacterialStart: 12-22-2024 End: 09-23-7307oyqe 1 capsule by mouth twice dailyCefdinir 300 mg capsule Discontinued 300 MG PO Twice daily December 22, 2024 12:00am December 24, 2024 8:18am dextromethorphan hydrobromide 30 mg / pyrilamine maleate 30 mg oral tablet (5 sources)Uncompetitive U-ycekem-Q-aspartate Receptor Antagonist, Sigma-1 AgonistStart: 98-67-9182fadx 1 tablet by mouth every eight hoursCapron DMT 30-30 MG 1 tablet Orally every 8 hours for 7 days May, Not-TakingDULoxetine 60 mg delayed release oral capsule (20 sources)Serotonin and Norepinephrine Reuptake InhibitorStart: 02-19-2024 End: 79-09-3365thit 1 capsule by mouth once dailyDuloxetine 60 mg capsule,delayed release(DR/EC) Discontinued 0 .ROUTE .COMPLEX February 19, 2024 8:39am March 18, 2024 9:00am TAKE 1 CAPSULE BY MOUTH EVERY DAY FOR 90 DAYS Start: 11-12-2023 End: 31-68-2278zroe 1 capsule by mouth once dailyDuloxetine 60 mg capsule,delayed release(DR/EC) Discontinued 60 MG PO Daily February 19, 2024 12:00am February 19, 2024 8:39amStart: 59-23-0423fxrk 1 capsule by mouth every twenty-four hoursCymbalta 60 MG 1 capsule Orally Once a day for 30 days Feb, ActivelevoFLOXacin 500 mg oral tablet (2 sources)Quinolone AntimicrobialStart: 01-21-2025 End: 95-81-7486ckil 1 tablet by mouth once dailyLevofloxacin 500 mg tablet Discontinued 500 MG PO Daily January 21, 2025 12:00am February 16, 2025 3:03pm methylPREDNISolone 4 mg oral tablet (20 sources)CorticosteroidStart: 10-15-2024 End: 79-61-8460ehwk 1 tablet by mouth onceMethylprednisolone (Medrol (Boris)) 4 mg tablets,dose pack Discontinued 0 PO per package directions October 15, 2024 1:00am December 22, 2024 8:24am PO PER PKG DIR for 6 daysStart: 12-06-2023 End: 28-16-6768Vrxehauvhdnfqtftjd 4 mg tablets,dose pack Discontinued 0 PO per package directions December 06, 2023 12:00am December 17, 2023 9:20am PO PER PKG DIR for 6 daysStart: 12-06-2023 End: 52-99-4508Zlgrwmrvyxhwdjsbty Discontinued 0 PO per package directions December 06, 2023 12:00am November 9:20am PO PER PKG DIR for 6 daysStart: 01-41-4554ckbkevLJXGBJYnabuh 4 MG as directed Orally for 6 days Sep, ActiveStart: 28-06-7271owwzgqOJQQIKChyaau 4 MG as directed Orally for 6 days May, ActiveStart: 63-85-3216Ggugoq (Boris) 4 MG as directed Orally for daily dose take half with breakfast half with dinner for 6days May, Not-Taking 24 hr nicotine 0.583 mg/hr transdermal system (2 sources)Cholinergic Nicotinic AgonistStart: 03-03-2024 End: 07-33-8452ismky 1 dose transdermal route once daily, then apply 1 dose transdermal route every twenty-four hoursNicotine (Nicoderm Cq) 14 mg/24 hr patch 24 hour Discontinued 1 PATCH TRANSDERML Daily March 03, 2024 12:00am March 18, 2024 9:00amNicotine (Nicoderm Cq) 14 mg/24 hr patch 24 hour (7 sources)Start: 03-03-2024 End: 89-36-8938nclpj 1 dose transdermal route once daily, then apply 1 dose transdermal route every twenty-four hoursNicotine (Nicoderm Cq) 14 mg/24 hr patch 24 hour Discontinued 1 PATCH TRANSDERML Daily March 02, 2024 11:00pm March 18, 2024 8:00amStart: 03-03-2024 End: 90-22-1611xlmcl 1 dose transdermal route once daily, then apply 1 dose transdermal route every twenty-four hoursNicotine (Nicoderm Cq) 14 mg/24 hr patch 24 hour Discontinued 1 PATCH TRANSDERML Daily March 03, 2024 12:00am March 18, 2024 9:00amStart: 92-07-4643nwocv 1 dose transdermal route once daily, then apply 1 dose transdermal route every twenty-four hoursNicotine (Nicoderm Cq) 14 mg/24 hr patch 24 hour Active 1 PATCH TRANSDERML Daily March 032:00amomeprazole 40 mg delayed release oral capsule (19 sources)Proton Pump InhibitorStart: 07-23-2024 End: 84-20-2693ygop 1 capsule by mouth once dailyOmeprazole 40 mg capsule,delayed release(DR/EC) Discontinued 40 MG PO Daily September 18, 2024 4:28pm January 21, 2025 9:39amStart: 07-23-2024 End: 72-72-7965jfcl 1 capsule by mouth twice dailyOmeprazole 40 mg capsule,delayed release(DR/EC) Discontinued 40 MG PO Twice daily July 23, 2024 1:00am July 23, 2024 11:55amStart: 62-51-5347xyep 1 capsule by mouth in the morningomeprazole (PriLOSEC) 40 mg capsule Indications: Gastroesophageal reflux disease, unspecified whether esophagitis present Take 1 capsule (40 mg total) by mouth in the morning. 60 capsule 05/27/2024 Activeondansetron 4 mg disintegrating oral tablet (20 sources)Serotonin-3 Receptor AntagonistStart: 58-98-6697xuaxptciqsg ODT (ZOFRAN ODT) 4 mg disintegrating tablet Dissolve 1 tablet (4 mg total) on tongue once. 04/27/2024 ActiveStart: 04-27-2024 End: 10-17-1809kzjy 1 tablet by mouth every eight hoursOndansetron 4 mg tablet,disintegrating Discontinued 4 MG PO Q8H December 07, 2024 4:32pm January 21, 2025 9:39amtriamcinolone acetonide 40 mg/ml injectable suspension (20 sources)CorticosteroidStart: 82-77-9482Pmwtpme-40 Nov, 40 mgStart: 46-81-1042Nmpcvlw -40 mg Nov, 40 mg Problems Active Problems Problem ClassificationProblemDateDocumented DateEpisodic/ChronicAbdominal hernia (7 sources)Hiatal hernia; Translations: [Diaphragmatic hernia without obstruction or gangrene]83-55-9987DzcmmylmQcubq bronchitis (9 sources)Acute bronchitis; Translations: [Acute bronchitis due to other specified organisms]Onset: 65-43-0409UqtqvwfcKocgqryn reactions (5 sources)Urticaria; Translations: [Urticaria, unspecified]62-18-5468Tinjdeza Anxiety disorders (3 sources)Anxiety disorder; Translations: [Other specified anxiety disorders] Onset: 51-50-2867EflwtysBbhryo (20 sources)Mild intermittent asthma; Translations: [Mild intermittent asthma, uncomplicated]Onset: 42-60-0163RsqttpgNkkztdj obstructive pulmonary disease and bronchiectasis (20 sources)Chronic obstructive lung disease; Translations: [Chronic obstructive pulmonary disease, unspecified]Onset: 17-37-6861TypuiznVtjmmew obstructive pulmonary disease and bronchiectasis (20 sources)Bronchitis, not specified as acute or chronic; Translations: [Bronchitis]Onset: 05-26-2021 Resolved: 46-04-2327JvftzznaJuednrwf mellitus with complications (20 sources)Hyperglycemia due to type 2 diabetes mellitus; Translations: [Type 2 diabetes mellitus with hyperglycemia]Onset: 59-94-1541AkpactcXswkmaiv mellitus without complication (20 sources)Type 2 diabetes mellitus without complications; Translations: [Type 2 diabetes mellitus without complication]Onset: hronic Diseases of mouth; excluding dental (9 sources)Abscess of submandibular region; Translations: [Cellulitis and abscess of mouth]12-45-9097CoaetmfmInoaraey of white blood cells (20 sources)Leukocytosis; Translations: [Other elevated white blood cell count] ChronicDisorders of teeth and jaw (3 sources)Jaw pain; Translations: [Jaw pain]EpisodicEsophageal disorders (20 sources)Gastroesophageal reflux disease without esophagitis; Translations: [Gastro-esophageal reflux disease without esophagitis]Onset: 05-27-2024 58-62-7697PktmzfkEmleswiqbm disorders (10 sources)Disorder of esophagus; Translations: [Disease of esophagus, unspecified]10-29-5266TyloazhiAatljgfdsdrlx symptoms and ill-defined conditions (3 sources)Blood in urine; Translations: [Hematuria, unspecified]Episodic Hyperplasia of prostate (10 sources)Large prostate ; Translations: [Benign prostatic hyperplasia without lower urinary tract symptoms]05-68-8378AnzaefdJapsxqiedhgba (11 sources)Acute lymphadenitis; Translations: [Acute lymphadenitis, unspecified]Onset: 617292-37-7399RdqxzpiuSyecojy and fatigue (3 sources)Fatigue; Translations: [Other fatigue]EpisodicNausea and vomiting (2 sources)Nausea; Translations: [Vomiting]Onset: 53-40-2667NwkadbzjEwccunqlxmn chest pain (8 sources)Chest pain, unspecified; Translations: [Chest pain]Onset: 10-05-2015 EpisodicOsteoarthritis (20 sources)Osteoarthritis of joint of left shoulder region; Translations: [Primary osteoarthritis, left shoulder]Onset: 12-12-2021 Resolved: 69-99-6701ZkfaeygJubmi connective tissue disease (20 sources)Supraspinatus tear; Translations: [Unspecified rotator cuff tear or rupture of left shoulder, not specified as traumatic]EpisodicOther connective tissue disease (20 sources)Full thickness rotator cuff tear; Translations: [Complete rotator cuff tear or rupture of left shoulder, not specified as traumatic]EpisodicOther connective tissue disease (3 sources)Neuralgia; Translations: [Neuralgia and neuritis, unspecified] EpisodicOther connective tissue disease (1 source)Cramp and spasmEpisodicOther connective tissue disease (1 source)Unspecified disorder of synovium and tendon, right shoulderEpisodic Other diseases of bladder and urethra (3 sources)Disorder of bladder; Translations: [Other specified disorders of bladder]ChronicOther diseases of bladder and urethra (5 sources)Diverticulum of bladder; Translations: [Diverticulum of bladder] 67-46-8417HwuvizpFbwvs diseases of bladder and urethra (2 sources)Diverticulum of bladder; Translations: [Diverticulum of bladder] 10-40-3217PmzwchnQrmsu gastrointestinal disorders (1 source)Other fecal abnormalitiesEpisodicOther gastrointestinal disorders (3 sources)Abnormal feces; Translations: [Other fecal abnormalities]Episodic Other gastrointestinal disorders (1 source)Dysphagia, unspecified; Translations: [Dysphagia, unspecified]Onset: 45-09-4217CfzdkgtjVdjbo injuries and conditions due to external causes (5 sources)Contusion; Translations: [Other injury of unspecified body region, initial encounter]80-90-5085LuelzrjbFhxja injuries and conditions due to external causes (2 sources)Other injury of unspecified body region, initial encounter; Translations: [Contusion of unspecifiedsite]94-05-3731KuwcvfxtTllsu liver diseases (20 sources)High enzyme level in serum; Translations: [Abnormal levels of other serum enzymes]EpisodicOther lower respiratory disease (20 sources)Dyspnea; Translations: [Shortness of breath]EpisodicOther lower respiratory disease (2 sources)Chronic cough; Translations: [Chronic cough]79-01-2081IqlsbfkxEggxe nervous system disorders (4 sources)Other chronic pain; Translations: [OTHER CHRONIC PAIN]Onset: 40-50-8659OvckvmfRtonk nervous system disorders (20 sources)Chronic pain; Translations: [Other chronic pain]ChronicOther non- traumatic joint disorders (20 sources)Derangement of left shoulder joint; Translations: [Other specific joint derangements of left shoulder, not elsewhere classified]Onset: 03-25-2023 09-08-0608TqyoihaItbfc non-traumatic joint disorders (4 sources)Other specific joint derangements of left shoulder, not elsewhere classified; Translations: [OTH SPEC JOINT DERANG LT SHLDR NEC]Onset: 02-02-2022 ChronicOther non-traumatic joint disorders (7 sources)Rotator cuff arthropathy of left shoulder; Translations: [Other specific arthropathies, not elsewhere classified, left shoulder]Onset: 990936-11-8529MbtoolxFyszu non-traumatic joint disorders (8 sources)Pain in left shoulder; Translations: [PAIN IN LEFT SHOULDER]Onset: 12-12-2021 Resolved: 66-91-9156YpwnzcxrDymcg non-traumatic joint disorders (9 sources)Pain in right shoulderEpisodicOther non-traumatic joint disorders (3 sources)Pain in unspecified joint; Translations: [Pain in joint, site unspecified]49-12-4132WosstnsqQftyw non-traumatic joint disorders (10 sources)Hip pain; Translations: [Pain in right hip]35-02-8815HohxfprtRyaoe non-traumatic joint disorders (2 sources)Pain in right hip; Translations: [Pain in joint, pelvic region and thigh]53-54-5107MfslrxakCdpfi nutritional; endocrine; and metabolic disorders (20 sources)Body mass index 40+ - severely obese; Translations: [Body mass index (BMI) 45.0-49.9, adult]ChronicOther nutritional; endocrine; and metabolic disorders (3 sources)Obese class I; Translations: [Body mass index (BMI) 32.0-32.9, adult] ChronicOther nutritional; endocrine; and metabolic disorders (3 sources)Obesity; Translations: [Obesity, unspecified]Onset: 19-18-4932Ixunlxz Other screening for suspected conditions (not mental disorders or infectious disease) (8 sources)Barium swallow abnormal; Translations: [Abnormal findings on diagnostic imaging of other parts of digestive tract]76-95-4063YwzgprehJijhi skin disorders (3 sources)Localized swelling, mass and lump, head; Translations: [Swelling, mass, or lump in head and neck]93-94-4059KfphksfdSrzru upper respiratory disease (20 sources)Chronic rhinitis; Translations: [Chronic rhinitis]ChronicOther upper respiratory disease (3 sources)Seasonal allergic rhinitis; Translations: [Other seasonal allergic rhinitis]ChronicOtitis media and related conditions (3 sources)Otitis media; Translations: [Otitis media, unspecified, unspecified ear]EpisodicResidual codes; unclassified (20 sources)H/O: asbestos exposure; Translations: [Contact with and (suspected) exposure to asbestos]Onset: 29-53-5518GbwfkbhfSalnwkyqm and history of mental health and substance abuse codes (1 source)Ex-smoker; Translations: [Personal history of nicotine dependence] 75-42-2805ZcpssvrvOztsrvyhznt; intervertebral disc disorders; other back problems (20 sources)Degeneration of lumbar intervertebral disc; Translations: [Other intervertebral disc degeneration, lumbar region]Onset: 57-15-2297PlzjfwxHkjzfic and strains (2 sources)Superior glenoid labrum lesion of right shoulder, subsequent encounterEpisodicSubstance-related disorders (20 sources)Smoker; Translations: [Nicotine dependence, unspecified, uncomplicated]Onset: 02-06-2022 Resolved: 41-30-4937YbrxbyvGfotaattgcly (1 source)postive cologuardOnset: 99-48-2044Pengcyyxsgjv (1 source)Emotional state findingOnset: 05-27-2024 Past or Other Problems Problem ClassificationProblemDateDocumented DateEpisodic/ChronicAbdominal pain (20 sources)Right upper quadrant pain; Translations: [Right upper quadrant pain] Onset: 52-07-3298ZfgsnqyzPgukaol tract disease (20 sources)Chronic cholecystitis due to gallbladder calculus with obstruction; Translations: [Calculus of gallbladder with chronic cholecystitis with obstruction]Onset: 918376-30-9568YjqrbmvjKquxidokd and vision defects (4 sources)Other visual disturbances; Translations: [OTHER VISUAL DISTURBANCES] Onset: 03-04-4058MphiirqbOpkbzdav of urinary tract (1 source)Personal history of urinary calculi; Translations: [PERSONAL HISTORY OF URINARY CALCULI]Onset: 40-07-5399AswmedesQmiztyqwvt and other anemia (3 sources)Iron deficiency anemia; Translations: [Iron deficiency anemia, unspecified]Onset: 04-32-2178SxudfybdGdpblnjq mellitus without complication (3 sources)Hyperglycemia; Translations: [Hyperglycemia, unspecified]Onset: 33-96-2795ZyrdlyyjBrxvdhvzxyodczut hemorrhage (20 sources)Rectal hemorrhage; Translations: [Hemorrhage of anus and rectum] Onset: 929603-66-5488ThuwlfulGqvdlbaiapzs breast conditions (3 sources)Pain of breast; Translations: [Mastodynia]Onset: 67-70-4699Rvcbzoof Other aftercare (1 source)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; Translations: [OTH PRISON CURRENT DRUG THERAPY]Onset: 47-25-8835QcacqxieRwohh connective tissue disease (1 source)Unspecified rotator cuff tear or rupture of left shoulder, not specified as traumaticOnset: 02-06-2022 Resolved: 28-06-0354QjyqcrlaQdnrp connective tissue disease (1 source)Complete rotator cuff tear or rupture of left shoulder, not specified as traumaticOnset: 12-12-2021 Resolved: 86-37-6075KifcnaslXoqmj connective tissue disease (1 source)Unspecified disorder of synovium and tendon, left shoulderOnset: 12-12-2021 Resolved: 14-34-7490WcitzwswTawfj connective tissue disease (7 sources)Rotator cuff impingement syndrome; Translations: [Impingement syndrome of right shoulder]Onset: 351098-64-1831GayukpwpUeogn connective tissue disease (7 sources)Partial thickness rotator cuff tear; Translations: [Incomplete rotator cuff tear or rupture of leftshoulder, not specified as traumatic]Onset: 569566-40-8534EcpuaugeJxxgk diseases of kidney and ureters (5 sources)Cyst of kidney; Translations: [Cyst of kidney, acquired]Onset: 333016-96-9053UdmykwtvKavca ear and sense organ disorders (3 sources)Impacted cerumen; Translations: [Impacted cerumen]Onset: 03-13-2018 EpisodicOther gastrointestinal disorders (20 sources)Dysphagia; Translations: [Dysphagia, unspecified]01-43-4628Bfmgedsc Other gastrointestinal disorders (7 sources)Stool DNA-based colorectal cancer screening positive; Translations: [Other fecal abnormalities]Onset: 687456-25-8368YkstqqazUnpuz gastrointestinal disorders (9 sources)Esophageal dysphagia; Translations: [Other dysphagia]Onset: 808542-32-6309OrrvmxcoXtdix liver diseases (12 sources)Liver mass; Translations: [Hepatomegaly, not elsewhere classified] Onset: 102465-11-0198GxorhfwvWiwnc non-traumatic joint disorders (17 sources)Joint pain; Translations: [Pain in unspecified joint]Onset: 847122-48-7342ItfygrsoTnwre skin disorders (14 sources)Mass of submandibular region; Translations: [Localized swelling, mass and lump, head]Onset: 854984-08-7944MhrrqncdJkiqy skin disorders (7 sources)Mass of neck; Translations: [Localized swelling, mass and lump, neck] Onset: 033268-90-5759RxcvrvvdNbkekejay (except that caused by tuberculosis or sexually transmitted disease) (3 sources)Pneumonia; Translations: [Pneumonia, unspecified organism]Onset: 81-45-8756FsmatqxtXhtlczfjjla; intervertebral disc disorders; other back problems (20 sources)Radiculopathy, lumbar region; Translations: [Dorsalgia, unspecified] Onset: 94-44-9276XyprurpbGubhwhl (3 sources)Syncope and collapse; Translations: [Syncope and collapse]Onset: 06-77-2479Rrsrncbm Results Test NameValueInterpretationReference RangeFacilityLaboratory - Chemistry and Chemistry - challengeon 02-78-2266Tdjrhef [Moles/Vol]2.6 mmol/LCritically high 0.4-2.0[facility] HospitalComment on above:RESULTS CALLED TO ROSEMARY SRINIVASAN RN at 0220Basophils Auto (Bld) [#/Vol]on 14-28-4374Tsuhutuug (Bld) [#/Vol]Automated basophil count0.0-0.1[facility] Basophils (Bld) [#/Vol]0.0 10 3/uL0.0-0.1[facility] Basophils/100 WBC Auto (Bld)on 92-46-7799Dmkgzusay/100 WBC (Bld)Automated basophil %0.2-2.0[facility] HospitalBasophils/100 WBC (Bld)0.6 % 0.2-2.0[facility] HospitalBasophils/100 WBC Manual cnt (Bld)on 12-44-9080Badruvawz/100 WBC (Bld)Basophils/100 leukocytes in Blood by Manual countLow0.2-2.0[facility] HospitalBasophils/100 WBC (Bld)0.0 %Low 0.2-2.0[facility] HospitalEosinophils/100 WBC Auto (Bld)on 77-42-3445Vfrkrmswrtd/100 WBC (Bld)Automated eosinophil %0.9-7.0[facility] HospitalEosinophils/100 WBC (Bld)2.0 %0.9-7.0[facility] HospitalEosinophils/100 WBC Manual cnt (Bld)on 11-78-5218Yurkdmhuxhj/100 WBC (Bld)Eosinophils/100 leukocytes in Blood by Manual countLow0.9-7.0[facility] HospitalEosinophils/100 WBC (Bld)0.0 %Low0.9-7.0[facility] HospitalErythrocyte distribution width Auto (RBC) [Ratio]on 19-15-0963Hhaaouirhpr distribution width (RBC) [Ratio]13.5 %11.0-15.0[facility] HospitalEstimated glomerular filtration rate (GFR) non- Americanon 28-02-0510IUT/1.73 sq M.predicted among non-blacks MDRD (S/P/Bld) [Vol rate/Area]Estimated glomerular filtration rate (GFR) non- Low>=60 mL/min/1.73m 2FK[facility] Medical CenterGFR/1.73 sq M.predicted among non-blacks MDRD (S/P/Bld) [Vol rate/Area]59 mL/min/{1.73_m2}Low>=60 mL/min/1.73m [address] [place], [place] [address]Globulin Calc (S) [Mass/Vol]on 70-91-1934Crtzltsf (S) [Mass/Vol]Serum globulin measurement by calculation (mass/volume)[facility] HospitalGlobulin (S) [Mass/Vol]3.6 g/dL [facility] HospitalGlucose mean value [Mass/volume] in Blood Estimated from glycated hemoglobinon 49-25-4063Pequrwb glucose Estimated from glycated hemoglobin (Bld) [Mass/Vol]Glucose mean value [Mass/volume] in Blood Estimated from glycated hemoglobinOhio State East HospitalAverage glucose Estimated from glycated hemoglobin (Bld) [Mass/Vol]192 mg/dLOhio State East HospitalHematocrit Auto (Bld) [Volume fraction]on 12-22-2024 Hematocrit (Bld) [Volume fraction]56.3 %High42.0-54.0[facility] HospitalHemoglobin A1c percentageon 85-41-8682QjG6a (Bld) [Mass fraction] Hemoglobin A1c percentageHigh4.5-6.2[facility] Medical CenterComment on above:ADA RECOMMENDED LIMIT 4.0 - 6.0ADA THERAPEUTIC TARGET < 7.0ACTION SUGGESTED> 7.0HbA1c (Bld) [Mass fraction]8.3 %High4.5-6.2[facility] CenterComment on above:ADA RECOMMENDED LIMIT 4.0 - 6.0ADA THERAPEUTIC TARGET < 7.0ACTION SUGGESTED> 7.0Hemoglobin [Mass/volume] in Bloodon 12-22-2024 Hemoglobin (Bld) [Mass/Vol]18.9 g/eXNuyb54.0-18.0[facility] HospitalLaboratory - Chemistry and Chemistry - challengeon 07-46-9648Hygtfhv [Mass/Vol]4.3 g/dL3.4-5.0[facility] HospitalALP [Catalytic activity/Vol]121 U/HMfxf44-899BkbjnvhjdOhio State East HospitalALT [Catalytic activity/Vol]46 U/X46-92NcuqydrfrOhio State East HospitalAST [Catalytic activity/Vol]17 U/M65-25JcitqseqqOhio State East HospitalBilirubin [Mass/Vol]0.4 mg/dL0.2-1.0[facility] HospitalCalcium [Mass/Vol]9.7 mg/dL 8.5-10.1[facility] CenterChloride [Moles/Vol]99 mmol/L98-107 [facility] HospitalCO2 [Moles/Vol]21.7 mmol/L21.0-32.0[facility] HospitalCreatinine [Mass/Vol]1.24 mg/dL0.70-1.30[facility] HospitalGFR/1.73 sq M.predicted MDRD (S/P/Bld) [Vol rate/Area] mL/min/{1.73_m2}>=60 mL/min/1.73m 2[facility] Medical CenterGlucose [Mass/Vol]278 mg/oOOztd34-319TdiylonrbOhio State East HospitalLactate [Moles/Vol]2.3 mmol/LCritically high0.4-2.0[facility] Comment on above:RESULTS CALLED TO KATRINA CABALLERO RN at 0009Lipase [Catalytic activity/Vol]31.0 U/L16.0-77.0[facility] HospitalPotassium [Moles/Vol]4.6 mmol/L3.5-5.1[facility] CenterProtein [Mass/Vol] 7.9 g/dL6.4-8.2FDoctors Hospitalodium [Moles/Vol]133 mmol/LLow 136-145[facility] HospitalUrea nitrogen [Mass/Vol]15.0 mg/dL 7.0-18.0[facility] HospitalUrea nitrogen/Creatinine [Mass ratio] 12.1 mg/mgOhio State East HospitalTSH Qn1.532 m[IU]/L0.358-3.740 [facility] HospitalLaboratory - Hematology and Cell countson 40-21-4680Qoiprmmhkoy/100 WBC (Bld)1.0 %Low20.5-60.0[facility] HospitalMonocytes/100 WBC (Bld)7.0 %1.7-12.0[facility] Immature granulocytes/100 WBC (Bld)0.2 %0.0-0.5[facility] Leukocytes [#/volume] corrected for nucleated erythrocytes in Blood by Automated counon 63-07-5570PQF corrected for nucl RBC Auto (Bld) [#/Vol]14.4 10 3/uLHigh 4.0-11.0[facility] HospitalLymphocytes Auto (Bld) [#/Vol]on 90-73-9249Dmwbmkcuvei (Bld) [#/Vol]Lymphocytes [#/volume] in Blood by Automated count1.2-3.8[facility] HospitalLymphocytes (Bld) [#/Vol]2.1 10 3/uL1.2-3.8[facility] HospitalLymphocytes/100 WBC Auto (Bld)on 76-59-9473Safnwrfkobt/100 WBC (Bld)Lymphocytes/100 leukocytes in Blood by Automated count20.5-60.0[facility] HospitalLymphocytes/100 WBC (Bld)31.7 %20.5-60.0[facility] HospitalMCH Auto (RBC) [Entitic mass]on 83-54-9410YIP (RBC) [Entitic mass]29.7 pg25.9-34.0[facility] HospitalMCHC Auto (RBC) [Mass/Vol]on 56-32-2294OGWQ (RBC) [Mass/Vol]33.6 g/dL29.9-35.2[facility] CenterMCV Auto (RBC) [Entitic vol]on 16-39-5956WDO (RBC) [Entitic vol]88.5 fL80.0-94.0[facility] HospitalMicroalbumin [Mass/volume] in Urineon 11-29-3384Wvasdyj DL <= 20 mg/L (U) [Mass/Vol]Microalbumin [Mass/volume] in Urine<=30.0[facility] HospitalAlbumin DL <= 20 mg/L (U) [Mass/Vol]2.0 mg/dL<=30.0[facility] HospitalMonocytes Auto (Bld) [#/Vol]on 20-57-0765Lkarhsoof (Bld) [#/Vol] Automated blood monocyte count0.3-0.8[facility] HospitalMonocytes (Bld) [#/Vol]0.7 10 3/uL0.3-0.8[facility] HospitalMonocytes/100 WBC Auto (Bld)on 83-95-8820Emlcjjprr/100 WBC (Bld)Automated monocyte %1.7-12.0 [facility] HospitalMonocytes/100 WBC (Bld)10.7 %1.7-12.0[facility] HospitalNeutrophils Auto (Bld) [#/Vol]on 34-91-2808Nztxtrpnvne (Bld) [#/Vol]Neutrophils [#/volume] in Blood by Automated count1.4-6.5[facility] Medical CenterNeutrophils (Bld) [#/Vol]3.6 10 3/uL1.4-6.5[facility] Medical CenterNeutrophils/100 WBC Auto (Bld)on 12-22-2024 Neutrophils/100 WBC (Bld)Automated neutrophil %43.0-75.0[facility] HospitalNeutrophils/100 WBC (Bld)54.8 %43.0-75.0[facility] HospitalNo Panel Informationon 25-24-0561Dxyrtvvk Basophils (Manual)0.00 10 3/uL 0.00-0.10[facility] HospitalEosinophils # (Manual)0.00 10 3/uL 0.00-0.70[facility] HospitalLymphocytes # (Manual)0.14 10 3/uLLow 1.20-3.80[facility] HospitalMonocytes # (Manual)1.00 10 3/uLHigh 0.30-0.80[facility] Centeregmented Neutrophils # (Manual)13.24 10 3/uLHigh1.4-6.5[facility] CenterTroponin I High Sensitivity <4.0 pg/mLLow4.0-76.1[facility] CenterComment on above:CUT-OFF POINTS HAVE BEEN ESTABLISHED BASED ON THE FOURTHUNIVERSAL DEFINITION OF MYOCARDIAL INFARCTION. THE UPPERREFERENCE LIMIT (URL) OF TROPONIN, DEFINED THE 99THPERCENTILE OF cTnI DISTRIBUTION IN A REFERENCE POPULATION,HAS BEEN CONFIRMED THE DECISION THRESHOLD FOR MIDIAGNOSIS.99TH PERCENTILE = 76.2 PG/MLNOTE: HIGH-SENSITIVITY TROPONIN ASSAY IS NOT INTENDED TO BEUSED IN ISOLATION BUT SHOULD BE INTERPRETED IN CONJUNCTIONWITH OTHER DIAGNOSTIC AND CLINICAL INFORMATION.Eosinophils # (Auto)0.1 10 3/uL0.0-0.7[facility] Medical CenterImmature Granulocyte # (Auto)0.01 10 3/uL0.00-0.03[facility] HospitalProstate Specific Antigen Screen0.89 ng/mL<=4.00[facility] HospitalUrine Random Zsvcgoivwt96.28 mg/dL20.00-300.00[facility] HospitalPlatelet mean volume Auto (Bld) [Entitic vol]on 85-07-5795Neluhqho mean volume (Bld) [Entitic vol]9.4 fLLow9.5-13.5FK[facility] Medical CenterPlatelets Auto (Bld) [#/Vol]on 37-25-9010Pzppuwrpo (Bld) [#/Vol]319 10 3/uA149-356CwwjsfyndOhio State East HospitalRBC Auto (Bld) [#/Vol] on 63-55-8280MUE (Bld) [#/Vol]6.36 10 6/uLHigh4.70-6.10[facility] Centeregmented neutrophils/100 WBC Manual cnt (Bld)on 12-22-2024 Segmented neutrophils/100 WBC (Bld)Manual blood segmented neutrophils/100 nkjebwpvduWbbl54.0-75.0[facility] Centeregmented neutrophils/100 WBC (Bld)92.0 %High43.0-75.0[facility] Serum or plasma albumin/globulin mass ratioon 32-57-7205Rlawcdn/Globulin [Mass ratio]Serum or plasma albumin/globulin mass ratioOhio State East HospitalAlbumin/Globulin [Mass ratio]1.2 {ratio}[facility] Serum or plasma anion gap determinationon 09-84-3924Ziorz gap [Moles/Vol]Serum or plasma anion gap determinationOhio State East HospitalAnion gap [Moles/Vol]16.9 mmol/LFKettering Health Behavioral Medical CenterUrine microalbumin/creatinine mass ratioon 83-73-6010Omqwwed/Creatinine DL <= 20 mg/L (U) [Mass ratio]Urine microalbumin/creatinine mass ratio0.0-29.9[facility] HospitalComment on above:NO MICROALBUMINURIA 0-29 MG/GCLINICAL MICROALBUMINURIA 30-300 MG/GMACROALBUMINURIA >300 MG/GAlbumin/Creatinine DL <= 20 mg/L (U) [Mass ratio]25.2 mg/g0.0-29.9[facility] Comment on above:NO MICROALBUMINURIA 0-29 MG/GCLINICAL MICROALBUMINURIA 30-300 MG/GMACROALBUMINURIA >300 MG/GCHEMISTRYOrdered By: Sonia Brandt on 86-25-4289TsX0k (Bld) [Mass fraction]9.5 %High<=5.9%[facility] NlyfDkneNIGfeE4vzj 82-75-3425HhS3f (Bld) [Mass fraction]9.5 %High<=5.9[facility] Comment on above:Performed By: #### [id number] #### [facility] [address], [place] [address]Bbonmqhfs Auto (Bld) [#/Vol]on 85-89-5968Tozhdvsmc (Bld) [#/Vol]Automated basophil count0.0-0.1[facility] Basophils/100 WBC Auto (Bld)on 00-20-1826Hbpdvqwfb/100 WBC (Bld)Automated basophil %0.2-2.0[facility] HospitalEosinophils/100 WBC Auto (Bld) on 46-31-0866Hncskyqaatk/100 WBC (Bld)Automated eosinophil %0.9-7.0[facility] HospitalErythrocyte distribution width Auto (RBC) [Ratio]on 94-81-6267Khtdtezfofj distribution width (RBC) [Ratio]Erythrocyte distribution width [Ratio] by Automated count11.0-15.0[facility] Estimated glomerular filtration rate (GFR) non- Americanon 10-11-2024 GFR/1.73 sq M.predicted among non-blacks MDRD (S/P/Bld) [Vol rate/Area]Estimated glomerular filtration rate (GFR) non->=60 mL/min/1.73m 2 [facility] HospitalGlobulin Calc (S) [Mass/Vol]on 10-11-2024 Globulin (S) [Mass/Vol]Serum globulin measurement by calculation (mass/volume) [facility] HospitalHematocrit Auto (Bld) [Volume fraction]on 75-25-2816Cxiedmigpb (Bld) [Volume fraction]Hematocrit [Volume Fraction] of Blood by Automated count42.0-54.0[facility] HospitalHemoglobin [Mass/volume] in Bloodon 96-30-2249Eeaxvwmyyn (Bld) [Mass/Vol]Hemoglobin [Mass/volume] in Blood14.0-18.0[facility] HospitalLaboratory - Chemistry and Chemistry - challengeon 88-30-0298Jwdipse [Mass/Vol]3.5 g/dL 3.4-5.0[facility] HospitalALP [Catalytic activity/Vol]102 U/L 46-116[facility] HospitalALT [Catalytic activity/Vol]39 U/L16-63 [facility] HospitalAST [Catalytic activity/Vol]13 U/OMvn84-31 [facility] HospitalBilirubin [Mass/Vol]0.2 mg/dL0.2-1.0[facility] HospitalCalcium [Mass/Vol]9.1 mg/dL8.5-10.1[facility] CenterChloride [Moles/Vol]102 mmol/L77-593CkdxhmabxOhio State East HospitalCO2 [Moles/Vol]28.4 mmol/L21.0-32.0[facility] Creatinine [Mass/Vol]0.97 mg/dL0.70-1.30[facility] GFR/1.73 sq M.predicted MDRD (S/P/Bld) [Vol rate/Area]mL/min/{1.73_m2}>=60 mL/min/1.73m 2FK[facility] Medical CenterGlucose [Mass/Vol]317 mg/dLHigh 74-106[facility] HospitalPotassium [Moles/Vol]4.3 mmol/L3.5-5.1 [facility] HospitalProtein [Mass/Vol]6.7 g/dL6.4-8.2FDoctors Hospitalodium [Moles/Vol]136 mmol/G628-783RikdckvacOhio State East HospitalUrea nitrogen [Mass/Vol]14.0 mg/dL7.0-18.0[facility] HospitalUrea nitrogen/Creatinine [Mass ratio]14.4 mg/mgOhio State East HospitalLaboratory - Hematology and Cell countson 00-75-4948Asaogvxx granulocytes/100 WBC (Bld)0.2 %0.0-0.5[facility] Leukocytes [#/volume] corrected for nucleated erythrocytes in Blood by Automated counon 44-00-1714ZUB corrected for nucl RBC Auto (Bld) [#/Vol]Leukocytes [#/volume] corrected for nucleated erythrocytes in Blood by Automated coun 4.0-11.0[facility] HospitalLymphocytes Auto (Bld) [#/Vol]on 16-23-6199Etdyeydihro (Bld) [#/Vol]Lymphocytes [#/volume] in Blood by Automated count1.2-3.8[facility] HospitalLymphocytes/100 WBC Auto (Bld)on 80-61-0054Ojcrpvzjotj/100 WBC (Bld)Lymphocytes/100 leukocytes in Blood by Automated count20.5-60.0[facility]H Auto (RBC) [Entitic mass]on 60-83-8274APJ (RBC) [Entitic mass]MCH [Entitic mass] by Automated count 25.9-34.0[facility] HospitalMCHC Auto (RBC) [Mass/Vol]on 80-75-5269ICIS (RBC) [Mass/Vol]MCHC [Mass/volume] by Automated count29.9-35.2 [facility] HospitalMCV Auto (RBC) [Entitic vol]on 41-77-6743DVV (RBC) [Entitic vol]MCV [Entitic volume] by Automated count80.0-94.0[facility] HospitalMonocytes Auto (Bld) [#/Vol]on 85-57-1890Ppptknype (Bld) [#/Vol]Automated blood monocyte count0.3-0.8[facility] Monocytes/100 WBC Auto (Bld)on 92-24-1206Fsvskogxa/100 WBC (Bld)Automated monocyte %1.7-12.0[facility] HospitalNeutrophils Auto (Bld) [#/Vol]on 30-84-9099Gmxrsornnwu (Bld) [#/Vol]Neutrophils [#/volume] in Blood by Automated count1.4-6.5[facility] Medical CenterNeutrophils/100 WBC Auto (Bld)on 14-96-3410Qoygapvsvvc/100 WBC (Bld)Automated neutrophil %43.0-75.0 [facility] HospitalNo Panel Informationon 09-99-4558Tpoqzqtbtxz # (Auto)0.2 10 3/uL0.0-0.7FKettering Health Behavioral Medical CenterImmature Granulocyte # (Auto)0.02 10 3/uL0.00-0.03[facility] HospitalPlatelet mean volume Auto (Bld) [Entitic vol]on 75-64-2171Hoegtvuo mean volume (Bld) [Entitic vol] Platelet mean volume [Entitic volume] in Blood by Automated countLow9.5-13.5 [facility] HospitalPlatelets Auto (Bld) [#/Vol]on 10-11-2024 Platelets (Bld) [#/Vol]Platelets [#/volume] in Blood by Automated feldg169-756 [facility] HospitalRBC Auto (Bld) [#/Vol]on 12-66-6381OLS (Bld) [#/Vol]Erythrocytes [#/volume] in Blood by Automated count4.70-6.10[facility] Medical Centererum or plasma albumin/globulin mass ratioon 10-11-2024 Albumin/Globulin [Mass ratio]Serum or plasma albumin/globulin mass ratio [facility] Centererum or plasma anion gap determinationon 21-25-4146Zknkp gap [Moles/Vol]Serum or plasma anion gap determinationOhio State East HospitalEstimated glomerular filtration rate (GFR) non- Americanon 78-63-7825GKH/1.73 sq M.predicted among non-blacks MDRD (S/P/Bld) [Vol rate/Area]Estimated glomerular filtration rate (GFR) non- >=60 mL/min/1.73m 2FKettering [facility] Behavioral Medical CenterLaboratory - Chemistry and Chemistry - challengeon 46-85-5958Dcrcuykycd [Mass/Vol]1.02 mg/dL0.70-1.30 [facility] HospitalGFR/1.73 sq M.predicted MDRD (S/P/Bld) [Vol rate/Area]mL/min/{1.73_m2}>=60 mL/min/1.73m 2FK[facility] EGDon 50-48-1573TnwNstwjlMercy Health Allen HospitalNo Panel InformationOrdered By: Rosalia Shea on 80-84-0925QsvRjmxsrMercy Health Allen HospitalNo Panel InformationOrdered By: Bill Henry on 39-98-2535Ilwdifdjxektj Pathology TestSee commentOhio State East HospitalComment on above:See report. Scanned copy available in EMR.No Panel Informationon 81-81-3030Bkzogtglqpfl pylori Urease TestNegative [facility] HospitalPathology Request for Lab Corpon 06-03-2024 Pathology Request for Lab CorpNormalThe [facility] Physician GroupComment on above:Order Comment: PATHOLOGY GI SPECIMENResult Comment: See report. Scanned copy available in EMR. PERFORMED BY: [address] [place] [id number] PATHOLOGIST [employer]ERAL HOME DIRECTOR JON PONCE M.D.Performed By: #### PATH TO [facility] #### [facility] [address] [id number] USACNPNon 73-31-2246GHRCKyabyjqqh ([id number]) NICHOLAS ZIEGLER ([id number]) 1960 M Date Time Provider Department 05/14/24 AMEYA TRAN [id number] During your visit today, we recorded the following information about you: Keily Martines 05/14/2024 1:11 PM Signed Referral was [facility] for new consult with Dr Tran Please see below and advise Vivian Siddiqui 05/15/2024 11:54 AM Addendum Consult from Dr. Jeremy Magallanes (Internal Medicine) [facility] Referral received from [...] Reviewed Reason for Visit: New Patient [172] [employer] - Other [3602] Problem List As Of Date: 05/14/2024 (None) Encounter Status:Closed by VIVIAN SIDDIQUI on 05/21/24[facility] Panel InformationOrdered By: Radiologist Radiology on 99-66-7282[facility] Work Phone: No Panel Informationon 87-90-0247Wgkxovpea Study observation (narrative)NOMS HealthcareRF videography Hypopharynx and Esophagus Views for swallowing function W speech and W barium contrast [place] 68-95[place], [place] [address] Fluoroscopy Report Signed Patient: NICHOLAS ZIEGLER MR#: [id number] : 1960 Acct:[id number] Age/Sex: 63 / M ADM Date: 04/08/24 Loc: [place] Attending Dr: Malathi Sanchez M.D. Ordering Physician: Malathi Sanchez M.D. Date of Service: 04/08/24 Procedure(s): FL barium swallow Accession Number(s): [id number] cc: Jeremy Magallanes M.D.; Malathi Sanchez M.D. [place] [id number] Patient Name: NICHOLAS ZIEGLER MRN: [id number] date: 1960 Sex: M [place]igned Patient [place]: [place] Location[place] Accession/Order Number: [id number] Exam Date: 04/08/2024 08:45 Report Date: 04/08/2024 10:57 At the request of: MALATHI SANCHEZ Procedure: FL barium swallow EXAMINATION: FL barium [...] in the distal esophagus. Electronically authenticated by: YEISON NAVAS Date: 04/08/2024 10:57 Dictated By: Yeison Navas M.D. Signed By: 04/08/24 1100 DD/ 1057 TD/TT: Tuck Pointer:TBHRadiology, Radiologist, - 04/08/2024 [place] [address] Fluoroscopy Report Signed Patient: NICHOLAS ZIEGLER MR#: [id number] : 1960 Acct:[id number] Age/Sex: 63 / M ADM Date: 04/08/24 Loc: [place] Attending Dr: Malathi Sanchez M.D. Ordering Physician: Malathi Sanchez M.D. Date of Service: 04/08/24 Procedure(s): FL barium swallow Accession Number(s): [id number] cc: Jeremy Magallanes M.D.; Malathi Sanchez M.D. [address] [place] [id number] Patient Name: NICHOLAS ZIEGLER MRN: [id number] date: 1960 Sex: M [place]igned [place] Accession/Order Number: [id number] Exam Date: 04/08/2024 08:45 Report Date: 04/08/2024 10:57 At the request of: MALATHI SANCHEZ Procedure: FL barium swallow EXAMINATION: FL barium [...] in the distal esophagus. Electronically authenticated by: YEISON NAVAS Date: 04/08/2024 10:57 Dictated By: Yeison Navas M.D. Signed By: 04/08/24 1100 DD/ 1057 TD/TT: Tuck Pointer: REMINGTON Soria CINERADIOGRAPHYon 47-13-2042[place] [address] Fluoroscopy Report Signed Patient: NICHOLAS ZIEGLER MR#: [id number] : 1960 Acct:[id number] Age/Sex: 63 / M ADM Date: 04/08/24 Loc: [place] Attending Dr: Malathi Sanchez M.D. Ordering Physician: Malathi Sanchez M.D. Date of Service: 04/08/24 Procedure(s): FL cineradiography Accession Number(s): [id number] cc: Jeremy Magallanes M.D.; Malathi Sanchez M.D. [address] [place] [address] Patient Name: NICHOLAS ZIEGLER MRN: [id number] date: 1960 Sex: M [place]igned Patient [place] Accession/Order Number: [id number] Exam Date: 04/08/2024 08:45 Report Date: 04/08/2024 10:57 At the request of: MALATHI SANCHEZ Procedure: FL cineradiography EXAMINATION: FL barium swallow, [...] in the distal esophagus. Electronically authenticated by: YEISON NAVAS Date: 04/08/2024 10:57 Dictated By: Yeison Navas M.D. Signed By: 04/08/24 1100 DD/ 1057 TD/TT: Tuck Pointer:SEYMOURHRadiology, Radiologist, - 04/08/2024 [place] [address] Fluoroscopy Report Signed Patient: NICHOLAS ZIEGLER MR#: [id number] : 1960 Acct:[id number] Age/Sex: 63 / M ADM Date: 04/08/24 Loc: [place] Attending Dr: Malathi Sanchez M.D. Ordering Physician: Malathi Sanchez M.D. Date of Service: 04/08/24 Procedure(s): FL cineradiography Accession Number(s): [id number] cc: Jeremy Magallanes M.D.; Malathi Sanchez M.D. [address] [place] [address] Patient Name: NICHOLAS ZIEGLER MRN: [id number] date: 1960 Sex: M [place]igned Patient [place] Accession/Order Number: [id number] Exam Date: 04/08/2024 08:45 Report Date: 04/08/2024 10:57 At the request of: MALATHI SANCHEZ Procedure: FL cineradiography EXAMINATION: FL barium swallow, [...] in the distal esophagus. Electronically authenticated by: YEISON NAVAS Date: 04/08/2024 10:57 Dictated By: Yeison Navas M.D. Signed By: 04/08/24 1100 DD/ 1057 TD/TT: Tuck Pointer: REMINGTON [facility] CenterBasophils Auto (Bld) [#/Vol]on 80-10-5314Agmrjyntx (Bld) [#/Vol] 0.1 10 3/uL0.0-0.1FKettering [facility] Behavioral Medical CenterBasophils/100 WBC Auto (Bld) on 58-60-7341Vzqdlpvqz/100 WBC (Bld)0.5 %0.2-2.0[facility] HospitalEosinophils/100 WBC Auto (Bld)on 12-01-5758Fbikjnuxqrf/100 WBC (Bld)2.5 % 0.9-7.0[facility] HospitalErythrocyte distribution width Auto (RBC) [Ratio]on 48-88-4170Dprpfhummvv distribution width (RBC) [Ratio]13.5 % 11.0-15.0[facility] HospitalEstimated glomerular filtration rate (GFR) non- Americanon 30-15-5848CPA/1.73 sq M.predicted among non-blacks MDRD (S/P/Bld) [Vol rate/Area]mL/min/{1.73_m2}>=60[facility] HospitalHematocrit Auto (Bld) [Volume fraction]on 42-15-4451Iriangjiqr (Bld) [Volume fraction]47.1 %42.0-54.0[facility] HospitalHemoglobin [Mass/volume] in Bloodon 39-56-2232Syxqznikjm (Bld) [Mass/Vol]15.5 g/dL14.0-18.0 [facility] HospitalLaboratory - Chemistry and Chemistry - challengeon 59-34-4880Qgbwekv [Mass/Vol]8.9 mg/dL8.5-10.1FKet[facility] Behavioral Medical CenterChloride [Moles/Vol]98 mmol/N77-720KxkxuqoxzOhio State East HospitalCO2 [Moles/Vol]28.1 mmol/L21.0-32.0[facility] Creatinine [Mass/Vol]0.86 mg/dL0.70-1.30[facility] GFR/1.73 sq M.predicted MDRD (S/P/Bld) [Vol rate/Area]mL/min/{1.73_m2}>=60 [facility] HospitalGlucose [Mass/Vol]237 mg/hUSagm20-948IuedgmjurOhio State East HospitalLactate [Moles/Vol]1.3 mmol/L0.4-2.0[facility] HospitalPotassium [Moles/Vol]4.4 mmol/L3.5-5.1FDoctors Hospitalodium [Moles/Vol]130 mmol/PEay263-504StyuvovszOhio State East Hospital Urea nitrogen [Mass/Vol]21.0 mg/dLHigh7.0-18.0[facility] Urea nitrogen/Creatinine [Mass ratio]24.4 mg/mgOhio State East Hospital Laboratory - Hematology and Cell countson 56-49-5556Ljmaxntr granulocytes/100 WBC (Bld)0.3 %0.0-0.5FKettering Health Behavioral Medical CenterLeukocytes [#/volume] corrected for nucleated erythrocytes in Blood by Automated counon 01-65-6348EWC corrected for nucl RBC Auto (Bld) [#/Vol]9.3 10 3/uL4.0-11.0[facility] HospitalLymphocytes Auto (Bld) [#/Vol]on 15-88-4393Nqsmqihixuu (Bld) [#/Vol]2.4 10 3/uL1.2-3.8[facility] HospitalLymphocytes/100 WBC Auto (Bld)on 24-69-2219Rqoiydhjvvq/100 WBC (Bld)25.5 %20.5-60.0[facility] SystemH Auto (RBC) [Entitic mass]on 47-21-7760MST (RBC) [Entitic mass]29.1 pg25.9-34.0[facility] HospitalMCHC Auto (RBC) [Mass/Vol]on 99-34-8871BUAE (RBC) [Mass/Vol]32.9 g/dL29.9-35.2FK[facility] Behavior[facility] Medical CenterMCV Auto (RBC) [Entitic vol]on 26-49-3333TXP (RBC) [Entitic vol] 88.5 fL80.0-94.0[facility] HospitalMonocytes Auto (Bld) [#/Vol]on 22-44-9172Oagahrvzd (Bld) [#/Vol]1.1 10 3/uLHigh0.3-0.8[facility] HospitalMonocytes/100 WBC Auto (Bld)on 34-93-8717Fhawisdyn/100 WBC (Bld) 12.0 %1.7-12.0[facility] HospitalNeutrophils Auto (Bld) [#/Vol]on 19-71-6568Lcjxckrgbyy (Bld) [#/Vol]5.5 10 3/uL1.4-6.5FKettering [facility] Behavioral Medical CenterNeutrophils/100 WBC Auto (Bld)on 78-66-4493Aslczoixdmf/100 WBC (Bld)59.2 % 43.0-75.0[facility] HospitalNo Panel Informationon 02-27-2024 Eosinophils # (Auto)0.2 10 3/uL0.0-0.7FK[facility] Behavior[facility] Medical CenterImmature Granulocyte # (Auto)0.03 10 3/uL0.00-0.03[facility] Platelet mean volume Auto (Bld) [Entitic vol]on 83-98-8965Lknksjqw mean volume (Bld) [Entitic vol]8.8 fLLow9.5-13.5FKettering [facility] Behavioral Medical CenterPlatelets Auto (Bld) [#/Vol]on 92-37-6085Yocaqazoc (Bld) [#/Vol]288 10 3/kZ768-351 [facility] HospitalRBC Auto (Bld) [#/Vol]on 21-18-0087CUS (Bld) [#/Vol]5.32 10 6/uL4.70-6.10[facility] Medical Centererum or plasma anion gap determinationon 82-09-9822Crqao gap [Moles/Vol]8.3 mmol/LFKettering Health Behavioral Medical CenterBasophils Auto (Bld) [#/Vol]on 83-63-7950Nvbkkaugz (Bld) [#/Vol]0.1 10 3/uL0.0-0.1FK[facility] Behavior[facility] Medical CenterBasophils/100 WBC Auto (Bld)on 80-78-1712Nuvvsrfag/100 WBC (Bld)0.9 %0.2-2.0[facility] HospitalEosinophils/100 WBC Auto (Bld)on 47-82-1191Nuxqwdjxtdo/100 WBC (Bld)2.7 % 0.9-7.0[facility] HospitalErythrocyte distribution width Auto (RBC) [Ratio]on 80-34-0972Lfktmeajfbv distribution width (RBC) [Ratio]13.1 % 11.0-15.0[facility] HospitalEstimated glomerular filtration rate (GFR) non- Americanon 13-95-6606UBB/1.73 sq M.predicted among non-blacks MDRD (S/P/Bld) [Vol rate/Area]mL/min/{1.73_m2}>=60[facility] HospitalGlucose mean value [Mass/volume] in Blood Estimated from glycated hemoglobinon 80-04-9025Bjgzgra glucose Estimated from glycated hemoglobin (Bld) [Mass/Vol]171 mg/dLOhio State East HospitalHematocrit Auto (Bld) [Volume fraction]on 37-85-7023Wekdlxdasg (Bld) [Volume fraction]48.9 %42.0-54.0 [facility] HospitalHemoglobin [Mass/volume] in Bloodon 12-05-2023 Hemoglobin (Bld) [Mass/Vol]16.0 g/dL14.0-18.0[facility] Laboratory - Chemistry and Chemistry - challengeon 83-83-5848Olaokld [Mass/Vol] 9.7 mg/dL8.5-10.1FK[facility] Behavior[facility] Medical CenterChloride [Moles/Vol]102 mmol/L 98-107[facility] HospitalCO2 [Moles/Vol]27.6 mmol/L21.0-32.0 [facility] HospitalCreatinine [Mass/Vol]1.01 mg/dL0.70-1.30 [facility] HospitalGFR/1.73 sq M.predicted MDRD (S/P/Bld) [Vol rate/Area]mL/min/{1.73_m2}>=60[facility] HospitalGlucose [Mass/Vol]156 mg/eGBypq25-564ZhfuxlgfoOhio State East HospitalPotassium [Moles/Vol]4.4 mmol/L3.5-5.1FDoctors Hospitalodium [Moles/Vol] 139 mmol/C143-280AlvhgqqyuOhio State East HospitalUrea nitrogen [Mass/Vol]13.0 mg/dL7.0-18.0[facility] HospitalUrea nitrogen/Creatinine [Mass ratio]12.9 mg/mgOhio State East HospitalLaboratory - Hematology and Cell countson 69-33-6220PWU (Bld) [Velocity]17 mm/h<=20[facility] HospitalHbA1c (Bld) [Mass fraction]7.6 %High4.5-6.2FK[facility] Behavioral Medical CenterComment on above:ADA RECOMMENDED LIMIT 4.0 - 6.0ADA THERAPEUTIC TARGET < 7.0ACTION SUGGESTED> 7.0Immature granulocytes/100 WBC (Bld)0.4 %0.0-0.5 [facility] HospitalLeukocytes [#/volume] corrected for nucleated erythrocytes in Blood by Automated counon 64-18-3173HWF corrected for nucl RBC Auto (Bld) [#/Vol]7.7 10 3/uL4.0-11.0[facility] Lymphocytes Auto (Bld) [#/Vol]on 77-35-4788Podcmyjjbsr (Bld) [#/Vol]2.4 10 3/uL 1.2-3.8[facility] HospitalLymphocytes/100 WBC Auto (Bld)on 77-97-3982Rgnzjpkpcht/100 WBC (Bld)31.2 %20.5-60.0[facility] SystemH Auto (RBC) [Entitic mass]on 99-38-9641JKV (RBC) [Entitic mass]28.5 pg 25.9-34.0[facility] HospitalMCHC Auto (RBC) [Mass/Vol]on 73-22-9608IKRQ (RBC) [Mass/Vol]32.7 g/dL29.9-35.2FK[facility] Medical CenterMCV Auto (RBC) [Entitic vol]on 69-07-9356CFE (RBC) [Entitic vol]87.0 fL 80.0-94.0[facility] HospitalMonocytes Auto (Bld) [#/Vol]on 00-63-7116Bthyjjhge (Bld) [#/Vol]0.7 10 3/uL0.3-0.8[facility] HospitalMonocytes/100 WBC Auto (Bld)on 59-28-3753Lpoizdkwm/100 WBC (Bld)9.5 % 1.7-12.0[facility] HospitalNeutrophils Auto (Bld) [#/Vol]on 97-34-4797Jkmxotzwqwe (Bld) [#/Vol]4.2 10 3/uL1.4-6.5FK[facility] Behavior[facility] Medical CenterNeutrophils/100 WBC Auto (Bld)on 37-91-0779Haqbxhjajct/100 WBC (Bld)55.3 % 43.0-75.0[facility] HospitalNo Panel Informationon 12-05-2023 Eosinophils # (Auto)0.2 10 3/uL0.0-0.7FK[facility] Behavior[facility] Medical CenterImmature Granulocyte # (Auto)0.03 10 3/uL0.00-0.03[facility] Platelet mean volume Auto (Bld) [Entitic vol]on 41-37-5936Hdwrvtrp mean volume (Bld) [Entitic vol]8.6 fLLow9.5-13.5FK[facility] Behavior[facility] Medical CenterPlatelets Auto (Bld) [#/Vol]on 24-82-6146Wxprpaafz (Bld) [#/Vol]330 10 3/nU992-400 [facility] HospitalRBC Auto (Bld) [#/Vol]on 26-31-2584LUR (Bld) [#/Vol]5.62 10 6/uL4.70-6.10[facility] Medical Centererum or plasma anion gap determinationon 10-13-9444Jkpeb gap [Moles/Vol]13.8 mmol/LFKettering Health Behavioral Medical CenterMagnesiumon 32-06-6547Cnoyftgng [Mass/Vol]2.4593740 mg/dL Normal1.8-2.4 mg/dLSpokane [employer] Other Magnesiumsee noteNouniversity of missouri health care [employer] Other XR CHEST 2 Von 54-61-6341FG CHEST 2 VEXAM: CHEST 2 VIEWS HISTORY: Bronchitis TECHNIQUE: PA and lateral views chest. COMPARISON: 11/21/2019 FINDINGS: The lungs are clear. There is no focal lung consolidation, pleural effusion or pneumothorax. Pulmonary vasculature is within normal limits. The cardiomediastinal silhouette is normal. IMPRESSION: 1. Lungs clear without consolidation or effusion. Recommend followup imaging if symptoms worsen or persist. Electronically authenticated by: RUBI TAVERAS Date: 2022-11-24 17:[address] [place] [address] LUNG CANCER SCREENINGon 46-70-0697NS LUNG CANCER SCREENING EXAMINATION: CT LUNG CANCER [...] Electronically authenticated by: YEISON NAVAS Date: 2022-07-20 07:18NormalThGuernsey Memorial Hospital AUTO DIFFon 50-67-5471NTRG #0.1 103/ulNormal0.0-0.1[facility] HospitalComment on above:Performed By: #### CBC #### [facility] [address] [place] [address] Dr. Eran ChaconBasophils/100 WBC (Bld)0.6 %Normal0.2-2.0[facility] Comment on above:Performed By: #### CBC #### [facility] [address] [place] [address] Dr. Eran Groves #0.3 103/ulNormal0.0-0.7ThKindred Hospital LimaComment on above: Performed By: #### CBC #### [facility] [address] [place] [address] Dr. Eran Hatfieldosinophils/100 WBC (Bld)3.3 %Normal0.9-7.0[facility] Comment on above:Performed By: #### CBC #### [facility] [address] [place] [address] Dr. Yilan ChangErythrocyte distribution width (RBC) [Ratio]12.9 %Urajvz30.0-15.0 The [facility] CompanyComment on above:Performed By: #### CBC #### [facility] [address] [place] [address] Dr. Eran ChaconHematocrit (Bld) [Volume fraction]47.7 %Qsnvnd43.0-54.0The [facility] CompanyComment on above:Performed By: #### CBC #### [facility] [address] [place] [address] Dr. Eran ChaconHemoglobin (Bld) [Mass/Vol]15.9 g/aKTiaogp15.0-18.0The [facility] CompanyComment on above:Performed By: #### CBC #### [facility] [address] [place] [address] Dr. Eran Sethi #0.02 10e3/ulNormal0.00-0.03The [facility] CompanyComment on above:Performed By: #### CBC #### [facility] [address] [place] [address] Dr. Eran Sethi %0.2 %Normal0.0-0.5The [facility] CompanyComment on above: Performed By: #### CBC #### [facility] [address] [place] [address] Dr. Eran Romero #3.4 103/ulNormal1.2-3.8The [facility] CompanyComment on above:Performed By: #### CBC #### [facility] [address] [place] [address] Dr. Eran Chandrahocytes/100 WBC (Bld)34.5 %Idymcd91.5-60.0The [facility] CompanyComment on above:Performed By: #### CBC #### [facility] [address] [place] [address] Dr. Eran SanchezUAL DIFF REQNONormalThe [facility] CompanyComment on above: Performed By: #### CBC #### [facility] [address] [place] [address] Dr. Eran GeorgeGladys (RBC) [Entitic mass]29.6 mwKezcqe18.9-34.0The [facility] CompanyComment on above:Performed By: #### CBC #### [facility] [address] [place] [address] Dr. Eran George (RBC) [Mass/Vol]33.3 g/qKCjdilo69.9-35.2The [facility] CompanyComment on above:Performed By: #### CBC #### [facility] [address] [place] [address] Dr. Eran George (RBC) [Entitic vol]88.8 wIYtyxis54.0-94.0The [facility] CompanyComment on above:Performed By: #### CBC #### [facility] [address] [place] [address] Dr. Eran Segura #0.9 103/ulCritically high0.3-0.8[facility] Comment on above:Performed By: #### CBC #### [facility] [address] [place] [address] Dr. Eran Avilaocytes/100 WBC (Bld)9.3 %Normal1.7-12.0[facility] Comment on above:Performed By: #### CBC #### [facility] [address] [place] [address] Dr. Eran AtkinsonUT #5.2 103/ulNormal1.4-6.5The [facility] CompanyComment on above:Performed By: #### CBC #### [facility] [address] [place] [address] Dr. Eran Atkinsonutrophils/100 WBC (Bld)52.1 %Zgrdvd89.0-75.0The [facility] CompanyComment on above:Performed By: #### CBC #### [facility] [address] [place] [address] Dr. Eran Agee mean volume (Bld) [Entitic vol]8.8 fLCritically low 9.5-13.5The [facility] CompanyComment on above:Performed By: #### CBC #### [facility] [address] [address] [address] Eran ChaconPLT287 103/ycWgzogd889-346Fij [facility] CompanyComment on above: Performed By: #### CBC #### [facility] [address] [place] [address] Dr. Eran ChaconRBC5.37 106/ulNormal4.70-6.10The [facility] CompanyComment on above:Performed By: #### CBC #### [facility] [address] [place] [address] Dr. Eran ChaconWBC9.9 103/ulNormal4.0-11.0The [facility] CompanyComment on above: Performed By: #### CBC #### [facility] [address] [place] [address] Dr. Eran Jones URINE PROFILEon 14-40-7672Pgdxdheks Ql (U)NegativeNormal NEGATIVEThe [facility] CompanyComment on above:Performed By: #### BISHNU TREVINORO #### [facility] [address] [place] [address] Dr. Eran ChaconClarity (U)CLEARNormalCLEARGreen Cross HospitalComment on above: Performed By: #### BISHNU TREVINORO #### [facility] [address] [place] [address] Dr. Eran Salazarlor (U)YELLOWNormalYELLOWThe [facility] CompanyComment on above: Performed By: #### HANNA TREVINO #### [facility] [address] [place] [address] Dr. Eran Turner micrscopic examination will be performed if indicated. NormalThe [facility] CompanyComment on above:Performed By: #### BISHNU TREVINORO #### [facility] [address] [place] [address] Dr. Eran ChaconGlucose Ql (U)500 mg/dlAbnormalNEGATIVEThe [facility] Comment on above:Performed By: #### BISHNU TREVINORO #### [facility] [address] [address] [address] Eran ChaconHemoglobin Ql (U)TRACE-INTACTAbnormalNEGATIVEThe [facility] CompanyComment on above:Performed By: #### BISHNU TREVINORO #### [facility] [address] [place] [address] Dr. Eran Abbottones Ql (U)NegativeNormalNEGATIVEThe [facility] CompanyComment on above:Performed By: #### BISHNU TREVINORO #### [facility] [address] [place] [address] Dr. Eran ChaconLEUKOCYTESNegativeNormalNEGATIVEThe [facility] CompanyComment on above:Performed By: #### BISHNU TREVINORO #### [facility] [address] [place] [address] Dr. Eran ChaconNitrite Ql (U)NegativeNormalNEGATIVEGreen Cross HospitalComment on above:Performed By: #### BISHNU TREVINORO #### [facility] [address] [place] [address] Dr. Eran ChaconpH (U)6.0 [pH]Normal5-9[facility] Cross HospitalComment on above: Performed By: #### BISHNU TREVINORO #### [facility] [address] [place] [address] Dr. Eran ChaconSPEC GRAVITY1.378Zfbfek8.005-<=1.025The [facility] CompanyComment on above:Performed By: #### BISHNU TREVINORO #### [facility] [address] [place] [address] Dr. Eran Schaeffer PROTEINNegativeNormalNEGATIVE/ TRACEThe [facility] on above:Performed By: #### BISHNU TREVINORO #### [facility] [address] [place] [address] Dr. Eran Kumar MICRO INDINDICATEDNoalThe [facility] CompanyComment on above: Performed By: #### BISHNU TREVINORO #### [facility] [address] [place] [address] Dr. Eran Hugginsbilinogen Qn (U)0.2 {Aureliano'U}/dLNormal0.2 - 1.0The [facility] CompanyComment on above:Performed By: #### HANNA TREVINO #### [facility] [address] [address] [address] Eran Cuellar 14(COMP METB)on 79-74-5489Zwpeuvg [Mass/Vol]4.0 g/dLNormal 3.4-5.0The [facility] CompanyComment on above:Performed By: #### CMP #### [facility] [address] [place] [address] Dr. Eran ChaconAlbumin/Globulin [Mass ratio]1.2 {ratio}NormalThe [facility] CompanyComment on above:Performed By: #### CMP #### [facility] [address] [place] [address] Dr. Eran AlfonsoP [Catalytic activity/Vol]104 U/KAiwejp85-659Ljq [facility] CompanyComment on above:Performed By: #### CMP #### [facility] [address] [place] [address] Dr. Eran Zayas [Catalytic activity/Vol]28 U/JGorzna27-88Bxv [facility] CompanyComment on above:Performed By: #### CMP #### [facility] [address] [place] [address] Dr. Eran Cm gap [Moles/Vol]7.2 mmol/LNormalThe [facility] CompanyComment on above:Performed By: #### CMP #### [facility] [address] [place] [address] Dr. Eran ChaconAST [Catalytic activity/Vol]14 U/LCritically slz78-81Sdz [facility] CompanyComment on above:Performed By: #### CMP #### [facility] [address] [place] [address] Dr. Eran ChaconBilirubin [Mass/Vol]0.4 mg/dLNormal0.2-1.0[facility] Comment on above:Performed By: #### CMP #### [facility] [address] [place], [place] [id number] Dr. Eran ChaconCalcium [Mass/Vol]9.0 mg/dLNormal8.5-10.1[facility] Comment on above:Performed By: #### CMP #### [facility] [address] [place] [address] Dr. Eran ChaconChloride [Moles/Vol]103 mmol/EIanqat85-335Zbb [facility] Comment on above:Performed By: #### CMP #### [facility] [address] [place] [address] Dr. Eran ChaconCO2 [Moles/Vol]30.0 mmol/NWelotq75.0-32.0[facility] Comment on above:Performed By: #### CMP #### [facility] [address] [place] [address] Dr. Eran ChaconCreatinine [Mass/Vol]0.85 mg/dLNormal0.70-1.30The [facility] CompanyComment on above:Performed By: #### CMP #### [facility] [address] [place] [address] Dr. Barillas ChangEGFR-AF GUINEAN>60Normal>=60The [facility] CompanyComment on above:Performed By: #### CMP #### [facility] [address] [place] [address] Dr. Eran HatfieldGFR-NON AF GUINEAN>60Normal>=60The [facility] CompanyComment on above:Performed By: #### CMP #### [facility] [address] [place] [address] Dr. Eran ChaconGlobulin (S) [Mass/Vol]3.3 g/dLNormalThe [facility] CompanyComment on above:Performed By: #### CMP #### [facility] [address] [place] [address] Dr. Eran ChaconGlucose [Mass/Vol]165 mg/dLCritically lmyn05-714Rlo [facility] CompanyComment on above:Performed By: #### CMP #### [facility] [address] [place] [address] Dr. Yilan ChangPotassium [Moles/Vol]4.2 mmol/LNormal3.5-5.1[facility] Comment on above:Performed By: #### CMP #### [facility] [address] [place] [address] Dr. Eran ChaconProtein [Mass/Vol]7.3 g/dLNormal6.4-8.2[facility] Comment on above:Performed By: #### CMP #### [facility] [address] [place] [address] Dr. Eran ChaconSodium [Moles/Vol]136 mmol/IYftbau672-686Mgr [facility] Comment on above:Performed By: #### CMP #### [facility] [address] [place] [address] Dr. Eran ChaconUrea nitrogen [Mass/Vol]10.0 mg/dLNormal7.0-18.0The [facility] CompanyComment on above:Performed By: #### CMP #### [facility] [address] [place] [address] Dr. Eran Munoz nitrogen/Creatinine [Mass ratio]11.8 mg/mgNoKing's Daughters Medical Center OhioComment on above:Performed By: #### CMP #### [facility] [address] [place] [address] Dr. Eran Johnston MICROSCOPIC ONLYon [id number] SEENNormalNONE SEENGreen Cross HospitalComment on above:Performed By: #### BISHNU TREVINORO #### [facility] [address] [place] [address] Dr. Eran Joiner identified Cx Nom (U)NOT INDICATEDNoKing's Daughters Medical Center OhioComment on above:Performed By: #### ERMELINDA TREVINOICRO #### [facility] [address] [place] [address] Dr. Eran Jason SEENNormalNONE SEENGreen Cross HospitalComment on above:Performed By: #### URIEL UMICRO #### [facility] [address] [place] [address] Dr. Yilan ChangCrystals LM Nom (Urine sed)NONE SEENNormalNONE SEENGreen Cross HospitalComment on above:Performed By: #### URIEL UMICRO #### [facility] [address] [place] [address] Dr. Barillas ChangEpithelial cells LM Ql (Urine sed)RARENormalNONE SEEN /RAREThe [facility] CompanyComment on above:Performed By: #### URIEL, UMICRO #### [facility] [address] [place] [address] Dr. Eran ChaconMUCOUSNONE SEENNormalNONE SEENThe [facility] CompanyComment on above:Performed By: #### URIEL UMICRO #### [facility] [address] [place] [address] Dr. Eran ChaconEgeupUUY7-5Vgotsr9-7Ond [facility] CompanyComment on above:Performed By: #### BISHNU TREVINORO #### [facility] [address] [place] [address] Dr. Eran ChaconWBC2-5AbnormalNONE SEENGreen Cross HospitalComment on above: Performed By: #### URIEL, UMICRO #### [facility] [address] [place] [address] Dr. Eran ChaconI SHOULDER LT WO CONon [id number] SHOULDER LT WO CON EXAMINATION: MRI SHOULDER [...] Electronically authenticated by: YEISON NAVAS Date: 2022-02-02 17:[address] [place] [address] Vital Signs Date TimeVital SignValuePerforming WbneqgnxoHrjslegg94-45-6634 13:51-0400 Diastolic blood fegurvua31 mm[Hg]Jeremy Magallanes MD Work Phone: [phone])[address]223 [address]10-13-2025 13:51-0400 Heart rate75 /minJeremy Magallanes MD Work Phone: [phone])59823 [address]10-13-2025 13:51-0400 SaO2% (BldA) [Mass fraction]95 %Jeremy Magallanes MD Work Phone: 1([phone])553-[address] [place], [place] [address]10-13-2025 13:51-0400 Systolic blood mm[Hg]Jeremy Magallanes MD Work Phone: [phone])[address]10-13-2025 13:46-0400 Body suagef247.26 cmJeremy Magallanes MD Work Phone: [phone]05[facility]10-13-2025 13:46-0400 Body mass index (BMI) [Ratio]34 kg/y7OyjomtJeremy Magallanes MD Work Phone: [phone])[address]10-13-2025 13:46-0400 Body gxqgzcywnig20.7 [degF]Jeremy Magallanes MD Work Phone: [phone])[address]10-13-2025 13:46-0400 Body qtybrc178.32 kgJeremy Magallanes MD Work Phone: [phone])[address]07-01-2025 14:47-0400 Body oxvube783.26 cmJeremy Magallanes MD Work Phone: [phone])[address]07-01-2025 14:47-0400 Body mass index (BMI) [Ratio]34 kg/x4DiqgwfJeremy Magallanes MD Work Phone: [phone])[address]07-01-2025 14:47-0400 Body jliwwt473.32 kgJeremy Magallanes MD Work Phone: 1(464)43323 [address]07-01-2025 14:47-0400 Diastolic blood blkvaykz01 mm[Hg]Jeremy Magallanes MD Work Phone: 1(162)[address]07-01-2025 14:47-0400 Heart rate81 /Jennifer Magallanes MD Work Phone: 1([phone])[address] [place], [place] 0153207-01-2025 14:47-0400 Respiratory rate12 /Jennifer Magallanes MD Work Phone: [phone])[address] [place], [place] 0153207-01-2025 14:47-0400 SaO2% (BldA) [Mass fraction]97 %Jeremy Magallanes MD Work Phone: [phone])[address]07-01-2025 14:47-0400 Systolic blood lbnypvln837 mm[Hg]Jeremy Magallanes MD Work Phone: 1(703)[address] [place], [place] 0153206-05-2025 09:27-0400 Body ooamxa109.26 cm[facility]06-05-2025 09:27-0400Body mass index (BMI) [Ratio]34.1 kg/v9FyvzcvwldOhio State East Hospital06-05-2025 09:27-0400Body ewwtcltzkme07.5 [degF][facility]06-05-2025 09:27-0400Body fnwkir600.77 kgOhio [facility] Hospital06-05-2025 09:27-0400Diastolic blood qjacdqqx59 mm[Hg][facility] 01-21-2025 09:27-0400Heart rate72 /minOhio [facility] Hospital 01-21-2025 09:27-2845FfG2% (BldA) [Mass fraction]97 %[facility]06-05-2025 09:27-0400Systolic blood qslwooso094 mm[Hg][facility]05-06-2025 08:21-0400Body wsizbr358.26 cmOhio [facility] Hospital05-06-2025 08:21-0400Body mass index (BMI) [Ratio]33.6 kg/m2 [facility]05-06-2025 08:21-0400Body erpflhpgjks70.6 [degF][facility]05-06-2025 08:21-0400Body .41 kg [facility]05-06-2025 08:21-0400Diastolic blood svnawxct49 mm[Hg][facility]05-06-2025 08:21-0400Heart rate71 /min [facility]05-06-2025 08:21-4721XnO5% (BldA) [Mass fraction]94 %[facility]05-06-2025 08:21-0400Systolic blood dogqhrxa189 mm[Hg][facility]02-27-2025 08:56-0500 Body nwuntz972.26 cmOhio [facility]02-27-2025 08:56-0500Body mass index (BMI) [Ratio]34.5 kg/b1PlcxqagwnOhio State East Hospital02-27-2025 08:56-0500Body ootgxrnhdzf03 [degF][facility]02-27-2025 08:56-0500Body tniaua666.14 kgOhio [facility]02-27-2025 08:56-0500Diastolic blood nmhidqew93 mm[Hg][facility] 10-15-2024 08:56-0500Heart rate76 /[facility] 10-15-2024 08:56-0500Systolic blood knelvjyx868 mm[Hg][facility]12-05-2024 10:050Body pircyl406.26 cmOhio [facility] Hospital12-05-2024 10:210500Body mass index (BMI) [Ratio]34.2 kg/k4QtkkxkppsOhio State East Hospital12-05-2024 10:050Body hsocrj186.23 kgOhio [facility] Hospital12-05-2024 10:0500Diastolic blood pkgbldoi40 mm[Hg] [facility]12-05-2024 10:0500Heart rate73 /minOhio State East Hospital12-05-2024 10:7640UfD6% (BldA) [Mass fraction]97 % [facility]12-05-2024 10:050Systolic blood mm[Hg][facility]10-30-2024 09:13-0400Body eynydf917.26 cm MD Jeremy Magallanes Work Phone: [phone])[address]10-30-2024 09:13-0400 Body mass index (BMI) [Ratio]33.5 kg/m2MD Jeremy Magallanes Work Phone: [phone])97223 [address]10-30-2024 09:13-0400 Body iclwspfbsin96.1 [degF]MD Jeremy Magallanes Work Phone: 1(236)[address]10-30-2024 09:13-0400 Body fgwrje257.96 kgMD Jeremy Magallanes Work Phone: 1([phone])[address]10-30-2024 09:13-0400 Diastolic blood qcadpwfx94 mm[Hg]MD Jeremy Magallanes Work Phone: [phone]10-30-2024 09:13-0400 Heart rate79 /minMD Jeremy Magallanes Work Phone: 1([phone] [place], [place] [address]10-30-2024 09:13-0400 Systolic blood xhivddyr586 mm[Hg]MD Jeremy Magallanes Work Phone: 1(344)568-[address] [place], [place] [address]10-09-2024 14:56-0400 Body evsiat121.3 cmPriyanka Benites FOREIGN SERVICE TEACHER-[employer] S[employer]ER Work Phone: [facility]10-09-2024 14:56-0400Body mass index (BMI) [Ratio]33.97 kg/e6UliiepuPriyanka Benites FOREIGN SERVICE TEACHER-[employer] S[employer]ER Work Phone: [facility]10-09-2024 14:56-0400Body mibivj987.33 kgJelaure Benites FOREIGN SERVICE TEACHER-[employer] S[employer]ER Work Phone: [facility]08-20-2024 10:04-0400Body .3 cmMalathi Sanchez MD Work Phone: [facility] DivisionLephkiwfvh89-23-1271 10:04-0400Body mass index (BMI) [Ratio]32.78 kg/n2JbzoaiMalathi Sanchez MD Work Phone: [facility] DivisionNmzeciscdm97-86-5262 10:04-0400Body skxjnu229.59 kgMalathi Sanchez MD Work Phone: [facility] DivisionByuaamncgn94-72-0624 10:04-0400Diastolic blood mm[Hg]Malathi Sanchez MD Work Phone: [facility] DivisionEfyyeolizd09-92-7564 10:04-0400Systolic blood hxaezqso417 mm[Hg]Malathi Sanchez MD Work Phone: [facility] DivisionYkboxahdrw92-04-7440 08:46-0400Body .26 cmOhio [facility]07-31-2024 08:46-0400Body mass index (BMI) [Ratio]34.4 kg/p1VygzcklebOhio State East Hospital07-31-2024 08:46-0400Body .68 kgOhio [facility]07-31-2024 08:46-0400Diastolic blood tgxoicrd34 mm[Hg][facility]07-31-2024 08:46-0400 Heart rate72 /minOhio State East Hospital07-31-2024 08:46-0400Systolic blood lnhplzte783 mm[Hg][facility]07-16-2024 11:54-0400 Body .26 cmOhio [facility] Hospital07-16-2024 11:54-0400Body mass index (BMI) [Ratio]34.7 kg/j0YeypsdqbbOhio State East Hospital07-16-2024 11:54-0400Body aadmma796.59 kgOhio [facility] Hospital07-16-2024 11:54-0400Diastolic blood kryfjxeh72 mm[Hg][facility] 03-03-2024 11:54-0400Heart rate69 /[facility] 03-03-2024 11:54-0400Systolic blood buotkwgt606 mm[Hg][facility]04-30-2024 08:54-0400Body avzpuv308.26 cmOhio [facility] Hospital04-30-2024 08:54-0400Body mass index (BMI) [Ratio]35.2 kg/s4EhavplqvpOhio State East Hospital04-30-2024 08:54-0400Body .4 [facility]04-30-2024 08:54-0400Diastolic blood nbuepkdf48 mm[Hg] [facility]04-30-2024 08:54-0400Heart rate76 /[facility]04-30-2024 08:54-0400Systolic blood tsmnvilo331 mm[Hg] [facility]04-18-2024 08:52-0400Body aydunr523.26 cm [facility]04-18-2024 08:52-0400Body mass index (BMI) [Ratio]35 kg/w6YqojbzvktOhio State East Hospital04-18-2024 08:52-0400Body weight 107.67 kgOhio [facility] Hospital04-18-2024 08:52-0400Diastolic blood mtiqnneo09 mm[Hg][facility]04-18-2024 08:52-0400Heart rate69 /[facility]04-18-2024 08:52-0400Systolic blood ntasxgbt483 mm[Hg][facility]01-26-2024 13:30-0500Body .26 cmJeremy Magallanes Other [facility]01-26-2024 13:30-0500 Body mass index (BMI) [Ratio]33.22 kg/v2SyenacJeremy Magallanes Other [facility] Other 01-26-2024 13:30-0500Body jqemodbexqx87.4 [degF]Jeremy Magallanes Other [facility] Other 01-26-2024 13:30-0500Body .06 kgJeremy Magallanes Other [facility] Other 01-26-2024 13:30-0500Body gjamuv702.05 kgOhio [facility]01-26-2024 13:30-0500Diastolic blood dhiqigbf18 mm[Hg] Jeremy Magallanes Other [facility]01-26-2024 13:30-0500 SaO2% (BldA) [Mass fraction]93 %Jeremy Magallanes Other [facility] Other 01-26-2024 13:30-0500Systolic blood jwgjrkyd082 mm[Hg] Jeremy Magallanes Other [facility]12-26-2023 10:30-0500 Body .26 cmJeremy Magallanes Other [facility] Other 12-26-2023 10:30-0500Body mass index (BMI) [Ratio]33.9 kg/n3UwsiwyJeremy Magallanes Other [facility] Other 12-26-2023 10:30-0500Body wsutlh621.15 kgJeremy Magallanes Other [facility] Other 12-26-2023 10:30-0500Diastolic blood mm[Hg] Jeremy Magallanes Other [facility] Other 12-26-2023 10:30-0500Systolic blood swjehwju129 mm[Hg] Jeremy Magallanes Other [facility] Other 11-07-2023 08:45-0500Body .26 cmJeremy Magallanes Other [facility] Other 11-07-2023 08:45-0500Body mass index (BMI) [Ratio] 33.37 kg/f5EbshoaJeremy Magallanes Other [facility] Other 11-07-2023 08:45-0500Body .5 [degF]Jeremy Magallanes Other [facility] Other 11-07-2023 08:45-0500Body tmompv743.51 kgJeremy Magallanes Other [facility] Other 11-07-2023 08:45-0500Diastolic blood prfkpotn43 mm[Hg] Jeremy Magallanes Other [facility] Other 11-07-2023 08:45-0500Systolic blood elkbqfli461 mm[Hg] Jeremy Magallanes Other [facility] Other 10-10-2023 10:45-0400Body retdvt621.26 cmJeremy Magallanes Other [facility] Other 10-10-2023 10:45-0400Body mass index (BMI) [Ratio] 33.52 kg/z7AguutyJeremy Magallanes Other [facility] Other 10-10-2023 10:45-0400Body .97 kgMilagromaikel Magallanes Other [facility] Other 10-10-2023 10:45-0400Diastolic blood mailmisc91 mm[Hg] Jeremy Magallanes Other [facility] Other 10-10-2023 10:45-0400Systolic blood mm[Hg] Jereym Magallanes Other [facility] Other 10-04-2023 08:45-0400Body frtrpa826.26 cmMilagromaikel Magallanes Other [facility] Other 10-04-2023 08:45-0400Body mass index (BMI) [Ratio] 33.52 kg/w6BgqwthJeremy Magallanes Other [facility] Other 10-04-2023 08:45-0400Body bmxzux475.97 kgMilagromaikel Magallanes Other [facility] Other 10-04-2023 08:45-0400Diastolic blood ntnunmdz69 mm[Hg] Jeremy Magallanes Other [facility] Other 10-04-2023 08:45-0400Systolic blood gtpzrfqy315 mm[Hg] Jeremy Magallanes Other [facility] Other 09-12-2023 09:45-0400Body urpokt216.26 cmJeremy Magallanes Other [facility] Other 09-12-2023 09:45-0400Body mass index (BMI) [Ratio] 34.32 kg/k3FwykdcJeremy Magallanes Other [facility] Other 09-12-2023 09:45-0400Body kamwewgyndx93.2 [degF]Jeremy Magallanes Other [facility] Other 09-12-2023 09:45-0400Body qhhpob964.42 kgJeremy Sona Other [facility] Other 09-12-2023 09:45-0400Diastolic blood gguavhep72 mm[Hg] Jeremy Magallanes Other [facility] Other 09-12-2023 09:45-0400Respiratory rate16 /minJeremy Magallanes Other [facility] Other 09-12-2023 09:45-0400Systolic blood zuksuazp606 mm[Hg] Jeremy Magallanes Other [facility] Other 07-05-2023 09:15-0400Body wheloa415.26 cmJeremy Magallanes Other [facility] Other 07-05-2023 09:15-0400Body mass index (BMI) [Ratio] 33.46 kg/r5QeaqxwJeremy Magallanes Other [facility] Other 07-05-2023 09:15-0400Body gtmgyt031.79 kgJeremy Magallanes Other [facility] Other 07-05-2023 09:15-0400Diastolic blood mm[Hg] Jeremy Magallanes Other [facility] Other 07-05-2023 09:15-0400Systolic blood mm[Hg] Jeremy Magallanes Other [facility] Other 06-01-2023 08:45-0400Body .26 cmJeremy Magallanes Other [facility] Other 06-01-2023 08:45-0400Body mass index (BMI) [Ratio] 33.37 kg/k2YohxsaJeremy Magallanes Other [facility] Other 06-01-2023 08:45-0400Body temuwe559.51 kgJeremy Magallanes Other [facility] Other 06-01-2023 08:45-0400Diastolic blood exhcisdj99 mm[Hg] Jeremy Magallanes Other [facility] Other 06-01-2023 08:45-0400Systolic blood wtivrugr564 mm[Hg] Jeremy Magallanes Other [facility] Other 04-07-2023 09:30-0400Body mhooig028.26 cmJeremy Magallanes Other [facility] Other 04-07-2023 09:30-0400Body mass index (BMI) [Ratio] 33.96 kg/w2LcxfcpJeremy Magallanes Other [facility] Other 04-07-2023 09:30-0400Body .33 kgJeremy Magallanes Other [facility] Other 04-07-2023 09:30-0400Diastolic blood qamavwtx79 mm[Hg] Jeremy Magallanes Other [facility] Other 04-07-2023 09:30-0400Systolic blood kfkctgpa799 mm[Hg] Jeremy Magallanes Other [facility] Other 01-17-2023 11:30-0500Body nktgva451.26 cmJeremy Sona Other [facility] Other 01-17-2023 11:30-0500Body mass index (BMI) [Ratio] 33.52 kg/e0Zvkeuz Sona Other [facility] Other 01-17-2023 11:30-0500Body eyatrv165.97 kgJeremy Sona Other [facility] Other 01-17-2023 11:30-0500Diastolic blood pipqobsw01 mm[Hg] Jeremy Magallanes Other [facility] Other 01-17-2023 11:30-8251JdM0% (BldA) [Mass fraction]95 % Jeremy Magallanes Other [facility] Other 01-17-2023 11:30-0500Systolic blood mhgwsbhu474 mm[Hg] Jeremy Magallanes Other [facility] Other 06-21-2022 12:45-0400Body ukhbch713.26 cmThomas Olexa Other [facility] Other 06-21-2022 12:45-0400Body mass index (BMI) [Ratio] 31.01 kg/p2Ldsrja Olexa Other [facility] Other 06-21-2022 12:45-0400Body pwtina59.26 kgThomas Olexa Other [facility] Other 10-08-2021 13:15-0400Body swupcm969.26 cmAmber Ginty Other [employer] Other 10-08-2021 13:15-0400Body mass index (BMI) [Ratio] 31.01 kg/v8Nxkae Ginty Other [email or web address] Other 10-08-2021 13:15-0400Body schsskibirm32.3 [degF]Harriet Ginty Other [email or web address] Other 10-08-2021 13:15-0400Body iaktrb63.26 kgAmber Ginty Other [email or web address] Other 10-08-2021 13:15-6730QwY8% (BldA) [Mass fraction]96 % Harriet Ginty Other [email or web address] Other Encounters Encounter DateEncounter TypeCare ProviderFacilityStart: 05-31-2025 End: 86-77-8753mlfnbvfwrxBqbuur E Braun MD Work Phone: [facility] Work Phone: Start: 05-31-2025 End: 27-15-0771Hgdjedt encounter procedureJeremy Magallanes MDA[facility] Work Phone: Start: 05-24-2025 End: 67-32-7276mubvroumdhDolqizw Vytautas Giedraitis MDFacility:[facility] Start: 04-26-2025 End: 18-83-6296wkcxlrwqimUzjinpf Vytautas Giedraitis MDFacility:[facility] Start: 04-05-2025 End: 55-06-8942jkfgrbkvidXfndrth Vytautas Giedraitis MDFacility:[facility] Start: 82-49-3134Iseerix encounter procedureJeremy Magallanes MD Work Phone: [address] [place], [place] [address]tart: 02-16-2025 End: 88-47-6005bpkyljlymvVumqcf E Braun MD Work Phone: [facility] Work Phone: Start: 02-16-2025 End: 42-66-2063Vsmjlzp encounter procedureJeremy Magallanes MD-[facility] Work Phone: Start: 01-21-2025 End: 99-03-5805srzlsiqyzgFtejpxrjrSelect [facility] Work Phone: Start: 01-21-2025 End: 93-11-3896Iwcaddd encounter procedureSelect [facility]ty [facility] Work Phone: Start: 54-51-6366Ixx-patient / Non-[facility] Work Phone: Start: 12-22-2024 End: 73-68-7589rucdxfrvivQzfuwsrtnSelect [facility] Work Phone: Start: 12-22-2024 End: 36-52-1550Cizvvgu encounter procedureAshe [facility] Work Phone: Start: 11-23-2024 End: 83-30-2996gugjfngyjbFlzodcpMaryuri Pike MDFacility:[facility] Start: 11-04-2024 End: 25-41-5334mukbxtktlnYwzv T AMESFacility:FTMCStart: 11-04-2024 End: 09-54-2867Jyqdjes encounter procedureLigia T CHIKIS [facility] Start: 11-04-2024 End: 66-12-0786fphtqkaiiaIqio T AMESFacility:[facility] Start: 10-15-2024 End: 19-39-4383iflwhhfqrqGmpnzucwfSelect [facility] Work Phone: Start: 10-15-2024 End: 05-94-6207Mtqlygh encounter procedureAs[facility] Work Phone: Start: 78-15-1959Rao-patient / Non-visitAs[facility] Work Phone: Start: 95-37-2512Msu-patient / Non-visitFirtopshams [facility]ician [facility] Work Phone: Start: 71-51-6879Pbw-patient / Non-visitFirtopshams [facility]ician [facility] Work Phone: Start: 08-17-2024 End: 53-98-4492gdlieqgjhnWsqqkhgMaryuri Pike MDFacility:SANDRA Ross Start: 07-23-2024 End: 64-22-1198Xavvpoy encounter procedureAs[facility] Work Phone: Start: 85-58-5709Gms-patient / Non-visitFirsentara [facility] Work Phone: Start: 73-21-5745Hyy-patient / Non-visitFirtopshams Physician [facility] Work Phone: Start: 06-17-2024 End: 96-17-1837rsmpugbmyyLC Marcia E Braun Work Phone: [facility] Work Phone: Start: 06-17-2024 End: 94-03-2463Mffwhtx encounter procedureMD Jeremy Magallanes Work Phone: [facility] Work Phone: Start: 06-12-2024 End: 31-59-8298Opvczz OnlyNot In System Ref ProvProMedica Physicians General SurgeryStart: 06-10-2024 End: 31-05-6874Zyxwlb OnlyRosalia Shea RMAProMedica Physicians General SurgeryComment on above:Dysphagia, unspecified type; Black stoolsStart: 06-03-2024 End: 08-69-1510vvqyqxjktsXO Marcia E Braun Work Phone: [facility] Work Phone: Start: 06-03-2024 End: 65-63-4621Ttljigul ReferredMD Jeremy Magallanes Work Phone: [facility]-LAB Path Spec Cody HospStart: 74-34-6569Rdi-patient / Non-visitMD Jeremy Magallanes Work Phone: [facility] GroupPe[facility] Work Phone: Start: 05-27-2024 End: 18-02-9843Ftzjvt outpatient new 30 [facility]August[facility] 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 SERVICE TEACHER-[facility] Work Phone: [facility] General SurgeryComment on above: Dysphagia, unspecified type (Primary Dx); Black stools; Gastroesophageal reflux disease, unspecified whether esophagitis present; Abnormal esophagramStart: 05-27-2024 End: 95-99-5317qzgukzothdLUYIQETFormerly [facility] Start: 05-14-2024 End: 11-04-5214Cxeeyjwyh encounterToms Marc JACOB Work Phone: General SurgeryComment on above:New Patient; [employer] - OtherStart: 05-04-2024 End: 77-56-7950Edlmsiqvm encounterMalathi Sanchez MD Work Phone: [facility] CI ENTStart: 04-08-2024 End: 80-49-2708Gttmecxxv Result EncounterHisintia Sanchez MD Work Phone: noms External Department UnsolicitedStart: 04-08-2024 End: 63-62-2163Ihujanlmn Result EncounterMalathi Sanchez MD Work Phone: noms External Department UnsolicitedStart: 04-07-2024 End: 72-53-5182Oqpmao flowsheetMalathi Sanchez MD Work Phone: [facility] CI ENTStart: 04-07-2024 End: 76-30-1269Hmpatd flowsheetMalathi Sanchez MD Work Phone: [facility] CI ENTStart: 04-07-2024 End: 08-01-7177Qeyskl outpatient new 45 minutesMalathi Sanchez MD Work Phone: noms CI ENTComment on above:Esophageal dysphagia (Primary Dx); Neck massStart: 04-07-2024 End: 41-00-5172djoidvmyxsUORGRZ H TIMMISNot AvailableStart: 03-18-2024 End: 90-29-5784ebmjgvytaiWweizihauSelect Medical Specialty Hospital [facility] Work Phone: Start: 03-18-2024 End: 62-07-6748Mxtkhrh encounter procedureAs[facility] Work Phone: Start: 03-03-2024 End: 90-83-9282fwktxxfobiWflmomcaiPremier Health Atrium Medical Center Work Phone: Start: 03-03-2024 End: 93-57-7051Syvmnqr encounter procedureAs[facility] Work Phone: Start: 01-09-9997Qwp-patient / Non-visitAs[facility] Work Phone: Start: 12-17-2023 End: 68-41-7170jfdqsccggcTplrvmzobPremier Health Atrium Medical Center Work Phone: Start: 12-17-2023 End: 35-55-1679Qutalcy encounter procedureAshe [facility] Physician GroupAden[facility] Work Phone: Start: 12-05-2023 End: 63-95-8315cymiwcpltlEwiimtzpxPremier Health Atrium [facility] Center Work Phone: Start: 12-05-2023 End: 41-84-6459Jboogaf encounter procedureAs[facility] Work Phone: Start: 81-64-0121Yrr-patient / Non-visitAs[facility] Work Phone: start: 74-77-1688Wxz-patient / Non-visitMendoza Physician [facility] Work Phone: Start: 10-07-2023 End: 97-66-1972pxvfxxfeplYCBEF A POCOSNot AvailableStart: 09-18-2023 End: 75-74-8193xqjyitdsefZascut Braun Other [employer] Other Start: 01-66-3916Wpbnukmpl encounterMarbenton SonaLouis Stokes [facility] VA Medical Centertart: 09-13-2023 End: 63-18-2498gnonkhlcgwGgfcsw Braun Other [employer] Other Start: 96-98-4713Rbgdnm outpatient visit 15 minutes [facility] Hospitaltart: 09-13-2023 End: 54-80-0699Jfyxnft encounter procedureAs[facility]-Start: 74-35-6493Nffmrytvg encounterArgentina Clinton PT Work Phone: NODX CI PTComment on above:re: PT Eval (He called noting he had just gotten out [...] to lm; requested call back to rs &check status.); Call Back (He called back noting still not feeling good enough to start PT. He doeshave fu w/ Pocos 10/07; hopefully he'll be able to start-up prior.); FU x3 (Tried to contact to check status and if we'd be able to rs Eval but had to lm. Requested call back reinier.)Start: 09-10-2023 End: 34-38-1392dbmaxvevsoOqvfiu Braun Other [employer] Other Start: 70-21-6217Depvevfcw encounterMarcia Jori [facility] ClinicStart: 09-06-2023 End: 64-51-2943akxnfoozobKpglkd Magallanes Other [employer] Other Start: 77-92-6857Lynwyjyen encounterMarcia Jori [facility] Medical ClinicStart: 09-02-2023 End: 85-51-4401yxbstffvguVVCNV A POCOSNot AvailableStart: 08-20-2023 End: 57-82-5746osgnywhuejPremqn Magallanes Other [employer] Other Start: 79-80-5896Gofjpuszp encounterMarcia Jori [facility] Medical ClinicStart: 08-13-2023 End: 28-04-3577xhejmcvyyxFjgtod Magallanes Other [employer] Other Start: 14-50-1995Szudcs outpatient visit 25 minutes Jeremy [facility] ClinicStart: 37-23-6791Fxrqigtzn encounterMarcia Jori [facility] ClinicStart: 08-06-2023 End: 24-39-3060uepkcehdscYwxxeu Magallanes Other [employer] Other Start: 65-46-2607Yiyhakzxh encounterMarcia LatanyaG [facility] ClinicStart: 07-29-2023 End: 49-70-5705vvnhgvbaurEUGUQ A POCOSNot AvailableStart: 07-22-2023 End: 27-58-6846szutawrrvhHgdwah Magallanes Other [employer] Other Start: 04-77-5842Lxuspsnpd encounterMarcia LatanyaG [facility] ClinicStart: 07-19-2023 End: 65-11-0468jybafohdujAjbsfj Magallanes Other [employer] Other Start: 11-61-3198Ubpycdwfd encounterMarcia Jori [facility] ClinicStart: 07-18-2023 End: 57-73-8773qgjzrywduhYmvrpx Magallanes Other [employer] Other Start: 06-00-4719Semkfjayt encounterMarcia Jori [facility] ClinicStart: 07-02-2023 End: 47-90-1016vnfxpidgilFjurvs Magallanes Other [employer] Other Start: 30-54-0422Cihbyz outpatient visit 15 minutes Jeremy [facility] ClinicStart: 96-64-3531Xzbqogbwc encounterMarcia Jori [facility] ClinicStart: 06-25-2023 End: 74-35-4858llzjyaevckTdxmtr Magallanes Other [facility] [employer] Other Start: 11-61-5347Zzmmwe outpatient visit 15 minutes Jeremy [facility] ClinicStart: 06-21-2023 End: 35-41-7481yaxxeomxpjToslsc Magallanes Other [facility] [employer] Other Start: 06-80-0502Joosakelm by computer linkJeremy [facility] ClinicStart: 06-20-2023 End: 62-92-7561wbwtsslbwnHiayig Magallanes Other [facility] [employer] Other Start: 29-17-0851Rhonpvjno encounterMarcia Jori [facility] ClinicStart: 06-17-2023 End: 27-73-6976foapnphgwvXvhinw Magallanes Other [employer] Other Start: 66-55-0773Rbovcbuqj encounterMarcia Jori [facility] ClinicStart: 06-10-2023 End: 87-11-4694ehifbpvodhTrxjbs Magallanes Other [employer] Other Start: 96-94-7431Efilrenpq encounterMarcia Jori [facility] ClinicStart: 06-03-2023 End: 69-03-7327xdyqesduprLvfsuc Magallanes Other [employer] Other Start: 10-11-9665Bgmyvwvbn encounterMarcia Jori [facility] ClinicStart: 05-30-2023 End: 18-24-9645Zhanxjh encounter procedureDavid A [facility]os [facility] Start: 05-28-2023 End: 53-70-6271suhzaptxtgMibobt Magallanes Other [employer] Other Start: 88-92-2570Apbbzd outpatient visit 15 minutes Jeremy [facility] ClinicStart: 2023 End: 01-03-4996mucvbszcraMxdfsd Magallanes Other [facility] [employer] Other Start: 86-77-7564Lktanx outpatient visit 15 minutes Jeremy [facility] ClinicStart: 05-16-2023 End: 16-57-8337zgidcfdkyjPalykr Magallanes Other [employer] Other Start: 01-29-0164Djakhtzmy encounterMarcia Jori [facility] ClinicStart: 04-30-2023 End: 02-18-5942pblcfxnsjjEbzlic Magallanes Other [employer] Other Start: 53-43-0977Yhvmtw outpatient visit 15 minutes Jeremy [facility] ClinicStart: 04-26-2023 End: 09-09-6576jneecbjccdGljiiu Magallanes Other [employer] Other Start: 43-31-5086Vnrenpbji encounterMarcia LatanyaG [facility] ClinicStart: 04-23-2023 End: 73-19-3563jdbxywjqymJrxpjj Magallanes Other [employer] Other Start: 30-52-5792Hkpomzhrz encounterMarcia LatanyaG [facility] ClinicStart: 03-25-2023 End: 43-61-1767gubggnxgynMmvwfi Magallanes Other [employer] Other Start: 21-77-1830Ltodruktw encounterMarcia SonaVerde [facility] Medical ClinicStart: 03-06-2023 End: 11-80-6971rrfethpwlzRqypqr Magallanes Other [employer] Other Start: 11-40-5163Vlpcxgcnc encounterMarcia LatanyaLee Health [facility]ocon[facility] Point Medical ClinicStart: 02-20-2023 End: 34-65-1406bhlxtwnsjoMqzsxa Magallanes Other [employer] Other Start: 45-06-2395Mayyoh outpatient visit 25 minutes Jeremy [facility]allanesMercy Health [facility] Hospital ClinicStart: 02-05-2023 End: 72-41-2343wsvlxesnmuWlgygi Magallanes Other [employer] Other Start: 18-11-1592Iukwighxf encounterMarcia LatanyaLee Health [facility]ocon[facility] Point Medical ClinicStart: 01-21-2023 End: 62-72-7741axcdsnwarwJxzlqh Magallanes Other [employer] Other Start: 79-29-2912Mcwyhehoc encounterMarcia LatanyaG Referral CoordinatorStart: 01-17-2023 End: 69-51-4339yyjlooqhxrLdtltl Magallanes Other [employer] Other Start: 60-11-1007Afguiz outpatient visit 15 minutes Jeremy [facility] ClinicStart: 12-24-2022 End: 73-87-8301wsewlipgaeFsvblj Magallanes Other [employer] Other Start: 07-23-7281Pcxjpbvym encounterMarcia Jori [facility] ClinicStart: 12-03-2022 End: 32-96-1676iwdcmvkdedEsrgzb Magallanes Other [employer] Other Start: 86-36-8231Xfdllwngl encounterMarcia SonaYamini [facility] ClinicStart: 11-27-2022 End: 40-80-7801vzosckchzaMkmjsp Magallanes Other [employer] Other Start: 44-38-2163Gpfmpsnns encounterMarcia Jori [facility] ClinicStart: 11-26-2022 End: 09-12-2636ihzuqhyfhoJgznhp Magallanes Other [employer] Other Start: 47-69-8577Albpzhtol encounterMarcia SonaBANNER [facility] ClinicStart: 11-24-2022 End: 33-86-5126vjfecziexbGV JEREMY MAGALLANESFacility:G5Tgfur: 11-23-2022 End: 54-78-1725dltbhfyuxbGnknzp Magallanes Other [employer] Other Start: 65-21-0372Oycpyo outpatient visit 15 minutes Jeremy [facility] ClinicStart: 11-05-2022 End: 66-86-2441qqhezfgipbPzsybl Magallanes Other [employer] Other Start: 65-34-8173Ctszrrzfc encounterMarcia SonaG [facility] ClinicStart: 10-03-2022 End: 55-47-0425oddiohmlcmIveerb Braun Other [employer] Other Start: 90-40-3089Fauimycyu encounterJeremy Hsieh [facility] ClinicStart: 09-04-2022 End: 89-92-5599mhtixchigjMicdvh Braun Other [facility] [employer] Other Start: 31-47-7594Phoiou outpatient visit 25 minutes Jeremy SonaDIMAS [facility] ClinicStart: 97-85-4131ktaomqvvdvXG JEREMY MAGALLANES Facility:H1Vqpjo: 07-19-2022 End: 95-50-2002rnlqvraqhrSV WILFREDO KADIEFacility:Z4Hkjsp: 06-07-2022 End: 19-72-4898zjunuwwzxiEF JEREMY MAGALLANESFacility:I5Txbod: 44-06-4662tewiycfqrq KESHA OLEXAFacility:P5Uiamr: 02-06-2022 End: 38-63-3473vrocoyhfmtEzaafc Olexa Other [employer] Other Start: 79-70-1586Ugcgof outpatient visit 25 minutes Kesha Medley [place] [facility]icsStart: 02-02-2022 End: 71-83-1431vmrdbsdvxbVSJNBN OLEXAFacility:R6Gxsni: 12-28-2021 End: 88-05-5458ohkkhvcjsfSH JEREMY MAGALLANESFacility:D6Sjmjl: 12-12-2021 End: 76-27-4943xziuwpjxauACISNL OLEXANort [employer] Other Start: 94-05-4453Scizov outpatient new 30 minutes Kesha [facility]al [facility] [place]vueStart: 12-84-6328Cbzrqn outpatient visit 15 minutesAmber GintyFPG [facility] Jerry Procedures DateProcedureProcedure DetailPerforming ClinicianStart: 06-03-2024 EsophagogastroduodenoscopyJelaure Benites FOREIGN SERVICE TEACHER-LENS SILVERER Work Phone: Start: 02-57-8508Aeckq i surg pathology gross examination onlyNot In System Ref ProvStart: 88-45-8189XEIBATEI LABSNot In System Ref ProvStart: 95-77-9404BY videography Hypopharynx and Esophagus Views for swallowing function W speech and W barium contrast POMalathi Sanchez MD Work Phone: Start: 65-42-2210DK CINERADIOGRAPHYMalathi Sanchez MD Work Phone: Start: 02-99-3944Rrhpftavxi test result abnormalMarcia Magallanes Other Start: 55-98-6062Pkfsakq of sutureMarcia Magallanes Other Start: 27-20-0633Mrsxwihoh for malignant neoplasm of prostateMarcia Magallanes Other Screening for malignant neoplasm of colonMarcia Magallanes Other Screening for malignant neoplasm of prostateMarcia Magallanes Other Plan of Treatment DateCare ActivityDetailAuthorStart: 93-29-7810EYnZ,Tdap and Td Vaccines (3 - Td or Tdap)DTaP,Tdap and Td Vaccines (3 - Td or Tdap)[facility] SystemStart: 52-94-4776Iqfow BMI ScreeningAdult BMI ScreeningProMercy Health West Hospitalca Health SystemStart: 41-27-9032Zgyzjyf ScreeningTobacco ScreeningProMercy Health West Hospitalca Health SystemStart: 54-48-6283Ggwwhdi referralOhio Valley Hospital Work Phone: Start: 88-80-9726Fztzqvxrc vaccinationInfluenza VaccineProLamar Regional Hospital Health SystemStart: 04-07-2024 End: 77-32-9454Iovymrl encounter ycikoanva85/20/2024 10:30 AM EDT Office Visit [facility] [address] [place] [address] Malathi Sanchez MD [address] [place], [place] [id number] ArrivedNOMS CI ENTComment on above:ArrivedStart: 34-55-7060Titkzmt referralOhio Valley Hospital Work Phone: Start: 10-07-2023 End: 27-60-7135Anvqati encounter slalbaxjl30/19/2024 8:00 AM EST Office Visit [facility] [address] [place] [address] Barbie Jesus DO [address] [place] [address] [facility] RA ORTHOStart: 13-81-5039Ydvcefwqrslknj of varicella zoster vaccineZoster (Shingles) Vaccine (1 of 2)[facility] SystemStart: 62-97-2029Kcbvy BMI Follow Up PlanAdult BMI Follow Up PlanProSelect [facility] SystemStart: 05-20-0802Bwxtjksaxk ScreeningDepression ScreeningProSelect [facility] SystemStart: 80-23-9718Zuscday CounselingTobacco CounselingProSelect [facility] SystemComprehensive metabolic 2000 panel - Serum or PlasmaOhio State East HospitalCT Chest WO contrastOhio State East HospitalCT Neck W contrast [facility] End: 42-07-4490KqifgwydihbanllxbwrbotgvbeMEV GI Routine Dysphagia, unspecified type Black stools 1 Occurrences starting 05/27/2024 until 05/27/2025[facility] Work Phone: Comment on above:1 Occurrences starting 05/27/2024 until 05/27/2025Patient referralOhio Valley Hospital Work Phone: XR Chest 2 [facility] - bilateral [facility] Immunizations Immunization DateImmunizationNotesCare LkxdfnpvCulugepp94-09-4573Lsbuxdgnw, injectable, Madin Mecca Canine Kidney, preservative free, quadrivalentPamela Oz PT Work Phone: [facility] DivisionKjkqetaefq17-28-2421dmlbzkade virus vaccine, unspecified formulationPriyanka Benites FOREIGN SERVICE TEACHER-LENS SILVERER Work Phone: [facility] HospitalNdfqne95-19-6556nrgvkecvl virus vaccine, split virus (incl. purified surface antigen)Jeremy Magallanes Other [place] [employer] Other 09-397069-21-3375wodelpvyk virus vaccine, unspecified formulationOhio State East Hospital09-28-2017influenza, injectable, quadrivalent, preservative freePamela Clinton PT Work Phone: [facility] DivisionKwneuuxwfo91-76-3956jsxmeqjld, injectable, quadrivalent, preservative freePamela Clinton PT Work Phone: [facility] DivisionAivmmqzfcf91-96-0799gqsefar and diphtheria toxoids, adsorbed, preservative free, for adult use (5 Lf of tetanus toxoid and 2 Lf of diphtheria toxoid)Jeremy Magallanes Other [facility]10-07-2015influenza, seasonal, injectable, preservative freePamela Clinton PT Work Phone: [facility] DivisionUdifxlopwc82-21-2734vrwbjpx and diphtheria toxoids, adsorbed, preservative free, for adult use (5 Lf of tetanus toxoid and 2 Lf of diphtheria toxoid)Jeremy Magallanes Other [facility]10-28-1999 pneumococcal conjugate vaccine, 7 valentPamela Oz PT Work Phone: [facility] Payers DatePayer CategoryPayerPolicy [id number] [id number] 2013Medicare [id number] 2.16840.1.381842.3.57[id number] 2.16.840.1.699882.3.57[id number] 2.16.840.1.386877.3.57[id number] 2.16.840.1.256389.3.57[id number] 2.16.840.1.988231.3.57[id number] 2.16.840.1.188923.3.57[id number] 2.16.840.1.109219.3.57[id number] 2.16.840.1.003945.3.57[id number] 2.16.840.1.672038.3.579.2.[id number] 2.16.840.1.756594.3.57[id number] 2.16.840.1.858020.3.57[id number] 2.16.840.1.535033.3.57[id number] 2.16.840.1.586001.3.57[id number] 2.16.840.1.787127.3.57[id number] 2.16.840.1.790185.3.57[id number] 2.16.840.1.332877.3.57[id number] 2.16.840.1.954264.3.57[id number] 2.16.840.1.467177.3.579.[id number] 2.16.840.1.113008.3.57[id number] 2.16.840.1.331125.3.57[id number] 2.16.840.1.324525.3.579.2.196 [id number] 2.16.840.1.055821.19 [id number] 2.16.840.1.670304.19Self-pay [id number] Social History DateTypeDetailFacilityStart: 09-02-2023 End: 99-51-1661Pls Assigned At [facility] HospitalTobacco smoking statusCommunity Regional Medical Centertart: 03-27-2023 End: 00-49-1253Hvulvzm smoking status NHISSmokes tobacco dailyNOWV Healthcare Work Phone: History of tobacco useCigarette SmokerNOMS Healthcare Start: 03-27-2023 End: 86-76-1607Ijkthtromi smoked current (pack per day) - Reported0.5NOMS HealthcareStart: 03-27-2023 End: 80-86-4948Uzuhkiv use and exposureSmokeless tobacco non-userNOMS Healthcare Start: 09-02-2023 End: 91-63-3436Xpvmrqg intakeLifetime non-drinker (finding)[facility] HealthcareStart: 50-86-8254Fmzcksr CommentCaffine- SodaNOMS HealthcareStart: 46-94-3147Cqc Assigned At [facility] HealthcareStart: 71-23-4964Gftnsl identityIdentifies as male gender (finding)[facility] HealthcareStart: 71-56-5994Oxtpzs orientation Heterosexual (finding)[facility] HealthcareStart: 02-06-2017 End: 67-90-4003Aziurzy smoking status NHISEx-smoker (finding)[facility] HospitalTobacco smoking status NHISTobacco smoking consumption unknown [facility] Medical Centertart: 20-63-7823Wke assigned at birthNot on fileMercy Health St. Rita's Medical Centertart: 62-07-3690Tzeckmxwd of Alcohol ConsumptionNeverNPAWHUSKA HOSPITAL [facility] Start: 06-01-2019 End: 84-56-3914EwvKmtp (finding)[facility]aritan HospitalIFTTTSleepy Eye Medical Center [employer] Medical Equipment Procedure CodeEquipment CodeEquipment Original TextEquipment IdentifierDates Accu-Chek FastClix Lancet -Blood Sugar Diagnostic (Accu-Chek Ya Plus Test Strp) stripStart: 06-57-3114Xcsjdkq (Accu-Chek Fastclix Lancet Drum) miscStart: 23-37-5048Tvkwl Sugar Diagnostic (Accu-Chek Ya Plus Test Strp) stripStart: 11-04-2024 End: 76-67-7748Djibn Sugar Diagnostic (Accu-Chek Ya Plus Test Strp) strip Start: 11-05-2024 End: 97-93-8117Hrqgo Sugar Diagnostic (Accu-Chek Ya Plus Test Strp) strip Start: 11-05-2024 End: 07-09-6189Sumsnbz (Accu-Chek Fast[employer]ix Lancet Drum) miscStart: 10-26-2024 End: 93-60-1382Svzwxiw (Accu-Chek [employer]ix Lancet Drum) miscStart: 10-27-2024 End: 97-96-7454Iymmp Sugar Diagnostic (Accu-Chek Ya Plus Test Strp) strip Start: 89-24-8990Qphczgy (Accu-Chek [employer]ix Lancet Drum) miscStart: 10-28-2024 Blood Sugar Diagnostic (Accu-Chek Ya Plus Test Strp) stripStart: 11-04-2024 End: 10-63-7947Xnixa Sugar Diagnostic (Accu-Chek Ya Plus Test Strp) strip Start: 11-05-2024 End: 63-77-1171Whasn Sugar Diagnostic (Accu-Chek Ya Plus Test Strp) strip Start: 11-05-2024 End: 41-07-3175Zzcdadj (Accu-Chek [employer] Lancet Drum) miscStart: 10-26-2024 End: 79-01-8453Yjdzmja (Accu-Chek [employer] Lancet Drum) miscStart: 10-27-2024 End: 82-88-5530Ahhnf Sugar Diagnostic (Accu-Chek Ya Plus Test Strp) strip Start: 93-01-5623Uatlqfm (Accu-Chek [employer] Lancet Drum) miscStart: 10-28-2024 Blood Sugar Diagnostic (Accu-Chek Ya Plus Test Strp) stripStart: 11-04-2024 End: 47-38-3721Yyrht Sugar Diagnostic (Accu-Chek Ya Plus Test Strp) strip Start: 11-05-2024 End: 94-46-5578Jmaah Sugar Diagnostic (Accu-Chek Ay Plus Test Strp) strip Start: 11-05-2024 End: 50-00-8450Zsuyhra (Accu-Chek [employer]ix Lancet Drum) miscStart: 10-26-2024 End: 15-79-1744Klazgvs (Accu-Chek [employer] Lancet Drum) miscStart: 10-27-2024 End: 41-89-3423Saomk Sugar Diagnostic (Accu-Chek Ya Plus Test Strp) strip Start: 51-83-4427Onnzzpu (Accu-Chek [employer]ix Lancet Drum) miscStart: 10-28-2024 Blood Sugar Diagnostic (Accu-Chek Ya Plus Test Strp) stripStart: 11-04-2024 End: 66-61-7873Fpcxz Sugar Diagnostic (Accu-Chek Ya Plus Test Strp) strip Start: 11-05-2024 End: 21-23-8989Qqggt Sugar Diagnostic (Accu-Chek Ya Plus Test Strp) strip Start: 11-05-2024 End: 00-23-3847Eodgiup (Accu-Chek [employer]ix Lancet Drum) miscStart: 10-26-2024 End: 24-13-1065Blmofdl (Accu-Chek [employer]ix Lancet Drum) miscStart: 10-27-2024 End: 10-28-2024 Clinical Notes 05-26-2021 to 12-22-2024 Note Date & HqvaWgyyFckbcdnu02-91-9273 Evaluation note* Diagnosis Onset Date Resolution Status Admit Date Bronchitis acuteMay 2024 8:19amBruisingacuteMay 2024 8:19amEnlarged prostateacute December 22, 2024 8:19amScreening PSA (prostate specific antigen)acuteMay 2024 8:19amType II diabetes mellitusacuteMay 2024 8:19am [facility] Work Phone: 1(790) 995-420905-06-2025 Evaluation note* Diagnosis Onset Date Resolution Status Admit Date Bronchitis acuteMay 2024 8:19amBruisingacuteMay 2024 8:19amEnlarged prostateacute December 22, 2024 8:19amScreening PSA (prostate specific antigen)acuteMay 2024 8:19amType II diabetes mellitusacuteMay 2024 8:19amBronchitisacuteJune 2024 9:26am [facility] Work Phone: 1(458) 161-674703-19-2025 NoteProgress Note-Nurse LVM to talk about A1C level, he will be getting a one year card but will have to talk with his PCP about getting that number down.[facility] 10-15-2024 Evaluation note* Diagnosis Onset Date Resolution Status Admit Date Bladder diverticulum acuteFebruary 2024 8:52amEnlarged prostateacuteFebruary 2024 8:52am LymphadenopathyacuteFebruary 2024 8:52amUrticariaacuteFebruary 2024 8:52amBruisingacuteMay 2024 8:19amEnlarged prostateacuteMay 2024 8:19amScreening PSA (prostate specific antigen)acuteMay 2024 8:19amType II diabetes mellitusacuteMay 2024 8:19am [facility] Work Phone: 1(938) 329-836412-05-2024 Evaluation note* Diagnosis Onset Date Resolution Status Admit Date GERD (gastroesophageal reflux disease) acuteDecember 2023 10:18amLymphadenopathyacuteDecember 2023 10:18am Mass of left submandibular regionacuteDecember 2023 10:18amBladder diverticulumacuteFebruary 2024 8:52amEnlarged prostateacuteFebruary 2024 8:52amLymphadenopathyacuteFebruary 2024 8:52am [facility] Work Phone: 1(734) 988-854510-25-2024 Miscellaneous Notes* Telephone Encounter - Evelyn Mendoza [...] Address verified with patient. documented in [facility] encounterL[facility]10-25-2024 Telephone encounter Note* Telephone Encounter - [...] risk of esophageal cancer. Thanks, Dr. Kc [employer]10-25-2024 Telephone encounter Note* Telephone Encounter - Evelyn Mendoza CMA - 06/12/2024 12:00 PM EDT Spoke with patient regarding pathology results. Patient verbally understood with no further questions. 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 Address verified with patient. [employer]10-09-2024 History of Present illness Narrative* Priyanka Benites, FOREIGN SERVICE TEACHER-LENS SILVERER - 05/27/2024 2:30 PM EDT Images from the original note were not included. Chief Complaint: Dysphagia History of Present Illness Nicholas Ziegler is a 64 y.o. male who presents [...] gallbladder polyp. He saw Dr. Martinez in [place] for this. He also reports a positive [...] confusion. Past Medical History: Diagnosis Date Cancer ([facility]) Chronic back pain COPD (chronic obstructive pulmonary disease) ([facility]) Dental disease full dentures Diabetes mellitus ([facility]) Shortness of breath Skin cancer MELANOMA & [...] patient/family/caregiver Referring and communicating with other health healthcare business analyst Dysphagia, unspecified type [R13.10] CHARLEE BIGGS [facility] [place] This note was created with the assistance of a speech recognition program. While intending to generate a timely document that accurately reflects the content of the visit, no guarantee can be provided that every grammatical or spelling mistake has been or will be identified or corrected. Thank you for your understanding. CHARLEE Biggs 05/27/24 1555 documented in this encounterLima City Hospital09-27-2024 Telephone encounter Note* Telephone Encounter - Vivian Siddiqui - 05/15/2024 11:35 AM EDT Images from the original note were not included. Consult from Dr. Jeremy Magallanes (Internal Medicine) [facility] Referral received from [...] completed: 04/08/2024 Barium Swallow 03/21/2024 CT Chest [facility]09-27-2024 Miscellaneous Notes* Telephone Encounter - Vivian Siddiqui - 05/15/2024 11:35 AM EDT Images from the original note were not included. Consult from Dr. Jeremy Magallanes (Internal Medicine) [facility] Referral received from [...] were not included. Referral was sent from [facility] for new consult with Dr Tran Please see below and advise [facility] Telephone encounter Note * Telephone Encounter - Keily Martines - 05/14/2024 1:07 PM EDT Images from the original note were not included. Referral was sent from [facility] for new consult with Dr Tran Please see below and advise [facility]09-16-[facility]24 Telephone encounter Note* Telephone Encounter - Cynthia Sanchez - 05/04/2024 9:45 AM EDT Left message on sister's voice mail to contact Dr Magallanes's office for referral. [id number] Miscellaneous Notes* Telephone Encounter - Cynthia Sanchez [...] like a referral sent to Dr Ameya Tran at [facility]. He is a gastrologist. The fax number is [phone] . Pt's sister would like a call back at [phone]. documented in this encounterHCA [facility] [id number] Telephone encounter Note* Telephone Encounter - Malathi Sanchez MD - 05/04/2024 9:27 AM EDT That needs to be done by Dr Magallanes's office [facility] [id number] Telephone encounter Note* Telephone Encounter - Cynthia Sanchez - 05/04/2024 9:15 AM EDT Pt's sister called in. She said her brother would like a referral sent to Dr Ameya Tran at [facility]. He is a gastrologist. The fax number is [phone] . Pt's sister would like a call back at [phone]. [facility] [id number] History of Present illness Narrative* Malathi Sanchez MD - 04/07/2024 10:30 AM EDT Subjective Patient ID: Alex Ziegler is a 63 y.o. male who presents for Neck Mass (CT @ [facility] 02/26[facility]) Pt reports he is getting [...] resolved. F/U if recurs documented in this [facility]02-14-2024 Telephone encounter Note* Telephone Encounter - Maris Tavera - 10/02/2023 1:35 PM EST No attempts to hear back; closing referral. [facility] [id number] Miscellaneous Notes* Telephone Encounter - Maris Tavera - 10/02/2023 1:35 PM EST No attempts to hear back; closing referral. documented in this [facility]01-26[facility]2024 Evaluation note* Encounter Date Diagnosis Assessment Notes Treatment Notes Treatment Clinical Notes Aug, Chronic obstructive pulmonary disease, unspecified (ICD-10 - J44.9) Finish antibiotics and prednisone as prescribed. Denies pulmonary referral at this time. Hasn't smoked since 09/08 and declines chantix or patches. Aug,urrent smoker (ICD-10 - F17.200) [facility] 01-23-2024 Evaluation note* Encounter Date Diagnosis Assessment Notes Treatment Notes Treatment Clinical Notes Aug, Lumbar radicular pain (ICD-10 - M54.16) [facility] Other 01-19-2024 Evaluation note* Encounter Date Diagnosis Assessment Notes Treatment Notes Treatment Clinical Notes Aug, Lumbar radicular pain (ICD-10 - M54.16) [facility] Other 12-26-2023 Evaluation note* Encounter Date Diagnosis Assessment Notes Treatment Notes Treatment Clinical Notes Jul, Type 2 diabetes britton itus with hyperglycemia, without long-term current use of insulin (ICD-10 - E11.65) [facility] Other 12-26-2023 Evaluation note* Encounter Date Diagnosis Assessment Notes Treatment Notes Treatment Clinical Notes Jul, Rotator cuff dysfunction, right (ICD-10 - M67.911) Discussed that Dr. Jesus will manage his pain meds 2 weeks postoperatively. Pt is allergic to NSAIDS. EKG from June is attached. Nicholas is cleared for surgery next week. Jul,Type 2 diabetes mellitus with hyperglycemia, without long-term current use of insulin (ICD-10 - E11.65)Improved overall. Continue present med and dose. Jul,isc degeneration, lumbar (ICD-10 - M51.36)Previously controlled on T3s. Neurology was treating him with regular injections as well. Plan is to return to T3s after shoulder pain has improved post-operatively. [facility] Other 12-04-2023 Evaluation note* Encounter Date Diagnosis Assessment Notes Treatment Notes Treatment Clinical Notes Jul, Type 2 diabetes britton itus with hyperglycemia, without long-term current use of insulin (ICD-10 - E11.65) [facility] Other 12-01-2023 Evaluation note* Encounter Date Diagnosis Assessment Notes Treatment Notes Treatment Clinical Notes Jul, Type 2 diabetes britton itus with hyperglycemia, without long-term current use of insulin (ICD-10 - E11.65) [facility] Other 11-30-2023 Evaluation note* Encounter Date Diagnosis Assessment Notes Treatment Notes Treatment Clinical Notes Jun, Labral tear of shoul shiela, right, subsequent encounter (ICD-10 - S43.431D) [facility] Other 11-14-2023 Evaluation note* Encounter Date Diagnosis Assessment Notes Treatment Notes Treatment Clinical Notes Jun, Muscle cramps (ICD-10 - R25.2) Agrees to labs and further w/u to r/o cardiac or inflammatory causes. Jun,Type 2 diabetes mellitus with hyperglycemia, without long-term current use of insulin (ICD-10 - E11.65)Healthy diet and exercise encouraged. Weight loss helps to reduce blood sugars and A1C. Wear supportive shoes, avoid open toed shoes. Check feet daily. Jun,Left-sided chest pain (ICD-10 - R07.9)r/o cardiac cause [facility] Other 11-07-2023 Evaluation note* Encounter Date Diagnosis Assessment Notes Treatment Notes Treatment Clinical Notes Jun, COPD with exacerbation (ICD-10 - J44.1) Patient has cough with wheezing. Agrees to antibiotics and steroids finish prescribed amount. Jun,Labral tear of shoulder, right, subsequent encounter (ICD-10 - S43.431D)Scheduled for surgery with [facility] in August. Will refill medication as requested. Reviewed [place]AR[place] report. Patient understands this is a controlled substance. Every effort will be made after surgery to decrease dose and possibly discontinue medication. [facility] Other 11-02-2023 Evaluation note* Encounter Date Diagnosis Assessment Notes Treatment Notes Treatment Clinical Notes Jun, Acute pain of right shoulder (IC D-10 - M25.511) [facility] Other 10-30-2023 Evaluation note* Encounter Date Diagnosis Assessment Notes Treatment Notes Treatment Clinical Notes May, Acute pain of right shoulder (IC D-10 - M25.511) [facility] Other 10-23-2023 Evaluation note* Encounter Date Diagnosis Assessment Notes Treatment Notes Treatment Clinical Notes May, Acute pain of right shoulder (IC D-10 - M25.511) [facility] Other 10-16-2023 Evaluation note* Encounter Date Diagnosis Assessment Notes Treatment Notes Treatment Clinical Notes May, Acute pain of right shoulder (IC D-10 - M25.511) [facility] Other 10-10-2023 Evaluation note* Encounter Date Diagnosis Assessment Notes Treatment Notes Treatment Clinical Notes May, Acute pain of right shoulder (IC D-10 - M25.511) MRI and surgery planning pending. Pt understands this is a controlled substance and to call in 1 week w update on treatment plan. May,ronchitis (ICD-10 - J40)Finish antibiotic, rest, hydrate Steroids for wheezing. [facility] Other 10-04-2023 Evaluation note* Encounter Date Diagnosis Assessment Notes Treatment Notes Treatment Clinical Notes May, Acute pain of right shoulder (IC D-10 - M25.511) Reviewed [place]AR[place] and discussed short term plan of increase in pain medication. He is due for a refillof the T3s presently. Stop them, replace w norco. Pt understands weekly prescription and will need to d/c after anticipated surgery. [facility] Other 09-12-2023 Evaluation note* Encounter Date Diagnosis [...] or worsening symptoms occur, contact PCP immediately. Apr,Other chronic pain (ICD-10 - G89.29) Apr,ain in right shoulder (ICD-10 - M25.511)Pt states I can share notes w Dr. Jesus from our office and the ER visit on 04/26 [facility] Other 07-05-2023 Evaluation note* Encounter Date Diagnosis Assessment Notes Treatment Notes Treatment Clinical Notes Feb, Epigastric abdominal pain (ICD-1 0 - R10.13) Referral Dr. Martinez Feb,Other elevated white blood cell (WBC) count (ICD-10 - D72.828) Recheck WBC/CBC in March or Apr 23Feb,isc degeneration, lumbar (ICD-10 - M51.36)Pt agrees to start cymbalta. He sees neurology for injections. They did not have any rx recommendations at his last appt which was recently. Notes R LE numbness related to back pain. Reviewed OARRS report. States he will continue his T3s, but hopefully have better effects from the cymbalta and willneed less prn pain med. [facility] Other 06-01-2023 Evaluation note* Encounter Date Diagnosis Assessment Notes Treatment Notes Treatment Clinical Notes Jan, RUQ pain (ICD-10 - R10.11) Discussed differential. continues to decline c-scope. start w labs and GBUS. Jan,Other chronic pain (ICD-10 - G89.29) Jan,ain in right shoulder (ICD-10 - M25.511)Pt requests referral to Dr. Jesus - [facility] for intrarticular injections. Jan,ain in left shoulder (ICD-10 - M25.512)as above. [facility] Other 04-17-2023 Evaluation note* Encounter Date Diagnosis Assessment Notes Treatment Notes Treatment Clinical Notes Nov, Bronchitis (ICD-10 - J40) [facility] Other 04-11-2023 Evaluation note* Encounter Date Diagnosis Assessment Notes Treatment Notes Treatment Clinical Notes Nov, Disc degeneration, lumbar (ICD-1 0 - M51.36) Nov,Lumbar radicular pain (ICD-10 - M54.16) [facility] Other 04-07-2023 Evaluation note* Encounter Date Diagnosis Assessment Notes Treatment Notes Treatment Clinical Notes Nov, Bronchitis (ICD-10 - J40) Bronchitis: Care Instructions material was printed Pt is acutely sick with acute complicated bronchitis Recommend: Antibiotics: Azithromycin 50 mg po daily for 5 days Cough: Benzonatate Bronchodilator: Albuterol with prednisone taper expectorent: Mucinex Nov,Smoker unmotivated to quit (ICD-10 - F17.200) Nov,urrent smoker (ICD-10 - F17.200)Pt is strongly advised to quit smoking. Pt verbalizes understanding and agreement. [facility] Other 02-15-2023 Evaluation note* Encounter Date Diagnosis Assessment Notes Treatment Notes Treatment Clinical Notes Sep, Lumbar radicular pain (ICD-10 - M54.16) [facility] Other 01-17-2023 Evaluation note* Encounter Date Diagnosis Assessment Notes Treatment Notes Treatment Clinical Notes Aug, Bronchitis (ICD-10 - J40) Bronchitis: Care Instructions material was printed Pt is acutely sick with acute complicated bronchitis Recommend: Antibiotics with prednisone taper expectorent: Mucinex Aug,Lumbar radicular pain (ICD-10 - M54.16)Pain/controlled substance contract discussed with patient today. Patient is appropriate for chronic prescribing of controlled substances for management of [ ]. Made patient aware that drug testing ispossible at any time. It is necessary for patient to be free of substance abuse. Patient verbalizesunderstanding of no tolerance policy in regards to sharing medication, abusing medication, hoardingmedication, legality involving impaired driving of a motor vehicle, and strict follow-up policy. Georgina watkins also verbalizes understanding that OARRS report will be run every time a controlled substancesprescribed. Patient signed both contracts and these can be found in the patient document portion ofthe EMR. Aug,ositive colorectal cancer screening using Cologuard test (ICD-10 - R19.5)Lengthy discussion that there is no alternative to colonoscopy. Assured of the safety of the test itself. Patient chose to see Dr. Martinez. He will continue considering this and I instructed him tocall their office when he is ready for the test to be completed I also gave him a copy of the Cologuard results that go through all the percentage chances because he had a lot of questions about the likelihood of cancer that is outlined on the test result page. [facility] Other 10-20-2022 NoteIndication: Calculus in kidney. Comparison: [...] Electronically authenticated by: JOHN PINTO Date: 2022-06-07 20:07[facility]06-21-2022 Evaluation note* Encounter Date Diagnosis Assessment Notes Treatment Notes Treatment Clinical Notes Jan, Primary osteoarthritis of left s houlder (ICD-10 - M19.012) Jan,cute pain of left shoulder (ICD-10 - M25.512) Jan,Tear of left supraspinatus tendon (ICD-10 - M75.102)MRI reviewed with patient as rotator cuff tear. [...] infection, hardware pullout, cuff repair failure, intermediate pain and stiffness are well known problems that can require repeat surgeries. Patient is fully aware that this shoulder may never be the same. We discussed that our team will do everything we can to help achieve the best outcome. Jan,urrent smoker (ICD-10 - F17.200)Stressed to patient the importance of smoking cessation to decrease potential surgical complications including failure of repair, infection and wound healing delays. [facility] Other 04-26-2022 NotePROCEDURE: XR SHOULDER LT 2V or > COMPARISON: None. HISTORY: Pain of left shoulder joint FINDINGS: BONES:No acute fracture or dislocation. 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 No visible soft tissue swelling. EFFUSION:None visible. OTHER: Negative. IMPRESSION: Mild osteoarthritis Electronically authenticated by: BARBIE MEMBRENO Date: 2021-12-12 15:25[facility]* Encounter Date Diagnosis Assessment Notes Treatment Notes Treatment Clinical Notes Nov, Primary osteoarthritis of left rosa deleon (ICD-10 - M19.012) Discussed with patient he also has some arthritis. We discussed the importance of maintaining shoulder motion and demonstrated motion exercise in flexion, internal and external rotation. We discussedthe use of non-steroidal anti- inflammatory medication. Discussed limiting strenuous use of the shoulder which will aggravate symptoms. Discussed that occasional intra-articular cortisone injection may be helpful. Discussed surgical treatment options including arthroscopy and arthroplasty replacement options. Nov,omplete tear of left rotator cuff, unspecified whether traumatic (ICD-10 - M75.122)This appears to be pain secondary to rotator cuff tear. We discussed and demonstrated gentle motionexercise and rotator cuff strengthening exercise. Discussed the use of non-steroidal anti-inflammatory medication. At this point the patient will try to live with the condition, understanding a rotator cuff tear can worsen and enlarge with time A 1/1cc marcaine / kenalog cortisone injection was performed into the subacromial space under sterile technique. Patient tolerated the injection well with no adverse reaction. Nov,Tendinopathy of left shoulder (ICD-10 - M67.912) Nov,cute pain of left shoulder (ICD-10 - M25.512) [place] [employer] Other 10-08-2021 Evaluation note* Encounter Date [...] as needed for cough. Advised patient that [place] contains antihistamine and cough suppressant and to be cautious using other OTC cold medications. Patient to follow upwith PCP if symptoms do not improve. Immediate eval if SOB, difficulty breathing, chest pain, dizziness, or other concerning symptoms. Patient verbalizes understanding and is agreeable to treatment plan [place] [employer] Other Evaluation + Plan note No data available for this section [facility] HospitalEvaluation noteNo InformationNortAllegheny [facility] Other Evaluation note* Diagnosis Onset Date Resolution Status Arthralgia acuteLumbar painacuteType II diabetes mellitusacute [facility] Work Phone: Evaluation note* Diagnosis Onset Date Resolution Status Arthralgia acuteLumbar painacuteType II diabetes mellitusacuteBilateral hip painacute [facility] Work Phone: Evaluation note* Diagnosis Onset Date Resolution Status Arthralgia acuteLumbar painacuteType II diabetes mellitusacuteBilateral hip painacuteLumbar painacute [facility] Work Phone: Evaluation note* Diagnosis Onset Date Resolution Status Submandibular abscess acuteChronic obstructive pulmonary disease, unspecifiedacuteEsophageal abnormalityacuteMass of left submandibular regionacute [facility] Work Phone: Evaluation note* Diagnosis Onset Date Resolution Status Chronic obstructive pulmonary disease, u nspecified acuteEsophageal abnormalityacuteMass of left submandibular regionacute 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Hiatal herniaacute [facility] Work Phone: Evaluation note* Diagnosis Esophageal dysphagia- Primary Dysphagia, pharyngoesophageal phase Neck mass Swelling, mass, or lump in head and neck documented in this encounter [facility]* Diagnosis Dysphagia, unspecified type- Primary Black stools Nonspecific abnormal finding in stool contents Gastroesophageal reflux disease, unspecified whether esophagitis present Abnormal esophagram documented in this encounter [facility]* Diagnosis Dysphagia, unspecified type Black stools Nonspecific abnormal finding in stool contents documented in this encounter [facility]Evaluation [facility]* Diagnosis Onset Date Resolution Status Admit Date Chronic coughing acuteOctober 2024 1:27pm [facility] Work Phone: History general Narrative - Reported* Type Description Date Medical History Asthma Medical Historyskin cancer-lipSurgical HistoryLeft lung [id number] HistoryL4 and L5 disc [id number] Historyright lip basal cell cancer [id number] Historycarpal tunnel [id number] History tonsillectomyHospitalization History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Hospitalization Historypneumonia [facility] Other Hospital Discharge instructions No data available for this section [facility]Lev[facility] HospitalHospital Discharge instructionsAmbulatory Orders* Referral to ENT Time Frame: 03/18/24, Location: None Selected [facility] Work Phone: Hospital Discharge instructionsAmbulatory Orders* Referral to Urology Time Frame: 10/15/24, Location: None [facility] Work Phone: InstructionsNot on filedocumented in this encounter [facility] SystemInstructionsNot on filedocumented in this encounter [facility] SystemInstructionsNot on filedocumented in this encounter [facility] SystemProgress note No data available for this section [facility] HospitalReason for referral (narrative)No reason for referral information availableOhio Valley Hospital Work Phone: Summary Purpose Family History Relationship Condition Age at Onset Recorded Date/T alayna father Unknown Malignant neoplasmUnknownNot SpecifiedDeceasedUnknown Relationship Condition Age at Onset Recorded Date/T alayna father Unknown Malignant neoplasmUnknownmotherDeceasedUnknown Advance Directives Advance Directive Response Recorded Date/ [...] abdominal pain (R10.13) Referral Organization [facility] omar Referring Provider First Name Jeremy Referring Provider Last Name Sona Referring Provider Specialty [facility] [place] Referred Organization [facility] Referred Provider Sai Martinez Referred Address ,[place], [place],[address] Referred Provider Specialty Surgery Referral Priority Routine General Notes Es Camilo 11:38:02 AM >received today, attachments made, notes locked, referral faxed Reason 01/28/23 [facility] - B shoulder pain L>R - hopes for injections. Diagnosis 1 Pain in right should er (M25.511) Referral Organization [facility] [employer] [facility] [place] [facility] omar Referring Provider First Name Jeremy Referring Provider Last Name Sona Referring Provider Specialty [facility] [employer] Referred Organization [facility] Referred Provider Barbie Jesus Referred Address ,[place], [place],[address] Referred Provider Specialty Orthopaedic Surgery Referral Priority [...] should er (M25.511) Referral Organization [facility] Lisha nelson Referring Provider First Name Jeremy Referring Provider Last Name Sona Referring Provider Specialty [facility] Referred Organization [facility] Referred Provider Barbie Jesus Referred Address ,[place], [place],[address] Referred Provider Specialty Orthopaedic Surgery Referral Priority Routine General Notes Es Camilo 03:00:30 PM >received today, notes note locked, will fax when done Es Camilo 01/21/2023 10:35:11 AM >sent TE to have notes locked Chief Complaint and Reason for Visit Chief Complaint Tbh Amb Documentation Amb Documentation JOINTS HURTINGReason for VisitArthralgia Lumbar pain Type II diabetes mellitus Chief Complaint Amb Documentation Amb Documentation JOINTS HURTING go over labsReason for VisitArthralgia Lumbar pain Type II diabetes mellitus Bilateral hip pain Chief Complaint JOINTS HURTING go over labs Jaw painReason for VisitArthralgia Lumbar pain Type II diabetes mellitus Bilateral hip pain Lumbar pain Chief Complaint Jaw pain lip issuesReason for VisitSubmandibular abscess Chronic obstructive pulmonary disease, unspecified Esophageal abnormality Mass of left submandibular region Chief Complaint lip issues UnknownReason for VisitChronic obstructive pulmonary disease, unspecified Esophageal abnormality Mass of left submandibular region Chief Complaint Unknown cough, congestionReason for VisitBarrett esophagus determined by biopsy Hiatal hernia Chief Complaint Admit [...] FOR VISIT (unrecogniz ed section and content) ReasonOnset DateCommentsre: PT Eval09/11/2023He called noting he had just gotten out of the hospital and is feeling weak and needs to cx PT Evalon 09/13. I recommended rs but he said based on how he feels, he'll call back on 09/13 to verify status and rs if possible.fu09/16/2023Tried to contact to check status and there was no answer; requested a call back reinier.fu x209/18/2023Tried to contact but had to lm; requested call back to rs & check status.Call Back 09/19/2023He called back noting still not feeling good enough to start PT. He does have fu w/ [facility] 10/07; hopefully he'll be able to start-up prior.FU x3 09/26/2023Tried to contact to check status and if we'd be able to rs Eval but had to lm. Requested call back reinier.ReasonCommentsNew PatientCare Coordinator - OtherReasonCommentsNeck MassCT @ [facility]SReasonCommentspostive cologuard LAST COLONOSCOPY WAS OVER 20 YEARS AGO.Difficulty SwallowingNauseaVomiting Abdominal PainRUQ PAIN (unrecognized sect ion and content) No Status Records FoundNo Status Records FoundNo Status Records FoundNo Status Records FoundNo Status Records FoundNo Status Records FoundNo Status Records FoundNo Status Records Found INFORMATION SOURCE (unrecogn ized section and content) DATE CREATED AUTHOR 12/04/2022 [facility] DATE CREATED AUTHOR AUTHOR'S ORGANIZ ATION 04/08/2024 [facility] DATE CREATED AUTHOR AUTHOR'S ORGANIZ ATION 05/23/2024 [facility] DATE CREATED AUTHOR AUTHOR'S ORGANIZ ATION 05/29/2024 [facility] DATE CREATED AUTHOR AUTHOR'S ORGANIZ ATION 06/12/2024 [facility] DATE CREATED AUTHOR AUTHOR'S ORGANIZ ATION 11/06/2024 [facility] DATE CREATED AUTHOR AUTHOR'S ORGANIZ ATION 11/11/2024 [facility] DATE CREATED AUTHOR AUTHOR'S ORGANIZ ATION 05/29/2025 [facility] Patient Care team informatio n (unrecognized section [...] Active Start: December 23, 2024 Arnoldo Somers MDAttending ProviderActiveStart: December 23, 2024 Team Status: Inactive Member Role Status Gloria Magallanes MD Primary Care Provide r, Attending Provider Active Start: January 21, 2025 End: January 21, 2025 Team Status: Active Member Role Status Gloria Magallanes MD Primary Care Provider Active Start: June 03, 2024 Bill Henry DOAttending ProviderActiveStart: June 03, 2024 Team Status: Inactive Member Role Status Gloria Magallanes MD Primary Care Provider Active Start: June 03, 2024 End: June 03, 2024Bill Henry DOAttending ProviderActiveStart: June 03, 2024 End: June 03, 2024 [...] Care Provider Active Start: February 27, 2024 João Schulzending ProviderActiveStart: February 27, 2024 Team Status: Inactive Member [...] Care Provider Active Start: October 08, 2023 Sai Davies ProviderActiveStart: October 08, 2023 Team Status: Active Member Role Status Dates Jeremy Magallanes MD Primary Care Provider Active Start: October 23, 2023 Sai Davies ProviderActiveStart: October 23, 2023 Team MemberRelationshipSpecialtyStart DateEnd Date Jeremy Magallanes MD [address] [place] [facility] [phone] PCP - Generalmily Medicine01/23/23 Team Status: Inactive Member Role Status Dates Jeremy Magallanes MD Attending Provider Active St art: September 13, 2023 End: September 13, 2023Team MemberRelationshipSpecialtyStart DateEnd Date Jeremy Magallanes MD [address] [facility] [place] [id number] Referringmily Medicine05/12/24Team MemberRelationshipSpecialtyStart DateEnd Date Jeremy Magallanes MD [address] [place] [facility] [phone] PCP - [facility]01/23/23Team MemberRelationshipSpecialtyStart DateEnd Date Jeremy Magallanes MD [address] [place] [facility] [phone] PCP - Generalmily Medicine01/23/23Team MemberRelationshipSpecialtyStart DateEnd Date Jeremy Magallanes MD [address] [place] [facility] [phone] [facility] - [facility]01/23/23Team MemberRelationshipSpecialtyStart DateEnd Date Jeremy Magallanes MD [address] [place] [address] PCP - [facility]06/03/19Team MemberRelationshipSpecialtyStart Date End Date Jeremy Magallanes MD [address] [place] [address] PCP - [facility]06/03/19Team MemberRelationshipSpecialtyStart Date End Date Jeremy Magallanes MD [address] [place] [address] PCP - [facility]06/03/19Team MemberRelationshipSpecialtyStart Date End Date Jeremy Magallanes MD [address] [place] [address] PCP - [facility]06/03/19 Team Status: Active Member Role Status Dates Jeremy Magallanes MD Primary Care Provider Active Start: July 20, 2024 Heide Haas ProviderActiveStart: July 20, 2024 Team Status: Active Member [...] Active Start: October 11, 2024 Giselle Jang DOAttending ProviderActiveStart: October 11, 2024 Team Status: Active Member Role Status Dates Jeremy Magallanes MD Primary Care Provider Active Start: October 12, 2024 Heide Haas ProviderActiveStart: October 12, 2024 Team Status: Inactive Member Role Status Dates Jeremy Magallanes MD Primary Care Provide r, Attending Provider Active Start: October 15, 2024 End: October 15, 2024 Team Status: Inactive Member Role Status Dates Jeremy Magallanes MD Primary Care Provider Active Start: December 22, 2024 End: December 22, 2024Magdy Orellana ProviderActiveStart: December 22, 2024 End: December 22, 2024 Team Status: Inactive Member Role Status Dates Jeremy Magallanes MD Primary Care Provider Active Start: January 21, 2025 End: January 21, 2025Magdy Orellana ProviderActiveStart: January 21, 2025 End: January 21, 2025 Team Status: Inactive Member Role Status Dates Jeremy Magallanes MD Primary Care Provider Active Start: February 16, 2025 End: February 16, 2025Magdy Orellana ProviderActiveStart: February 16, 2025 End: February 16, 2025 Team Status: Inactive Member Role Status Dates Jeremy Magallanes MD Primary Care Provider Active Start: May 31, 2025 End: May 31, 2025Magdy Orellana ProviderActiveStart: May 31, 2025 End: May 31, 2025Team MemberRelationshipSpecialtyStart DateEnd Date Jeremy Magallanes MD [facility]01/23/23 Goals (unrecognized section and content) Goals may be documented in a n alternate section Source Comments (unrecognize d section and content) In the event this informatio n is protected by the Federal Confidentiality of Alcohol and Drug Abuse Patient Records regulations: The Federal rules restrict any use of the information to criminally investigate or prosecute any alcohol or drug abuse patient.[facility] FOR RECORDS PERTAINING TO PATIENTS WHO ARE [...] BE BASED ON THE PRIMARY CLINICAL RECORDS. [facility]. provides no warranty or guarantee of the accuracy or completeness of information in this document.
--- NOTE | 2025-06-19 20:25 | ED.GENADUL1 ---
Documented by User: PEE Reed 06/19/25 22:00 HPI HPI - General Adult General Chief complaint: Urogenital-Male Stated complaint: THINKS HE HAS A KIDNEY STONE AGAIN Time Seen by Provider: 06/19/25 20:19 Source: patient Mode of arrival: walk-in History of Present Illness HPI narrative: Patient is a 65-year-old male with a PMH of COPD that presents to the emergency department with right flank pain that started yesterday. He denies any trauma. He states that he has had a kidney stone in the past and this feels similar. It did not require any surgery and he was able to pass it. He has been taking Tylenol 3 that he has for his back and it has not helped with the pain at all. He also reports a lot of nausea, no vomiting or diarrhea. No chest pain, shortness of breath, or abdominal pain. His last BM was yesterday. Related Data Home Medications ?Medication ?Instructions ?Recorded ?Confirmed glipizide 5 mg-metformin 500 mg 1 tab PO BID 08/23/23 05/24/25 tablet lancets (Accu-Chek Fastclix Lancet 09/08/23 09/08/23 Drum) albuterol sulfate 90 mcg/actuation 2 puff inhalation Q6H PRN 06/01/24 05/24/25 aerosol inhaler shortness of breath or wheezing ondansetron 4 mg disintegrating mg 04/05/25 tablet cyclobenzaprine 10 mg tablet 10 mg PO HS 05/25/25 05/25/25 omeprazole 40 mg capsule,delayed 40 mg PO DAILY 05/25/25 05/25/25 release Previous Rx's ?Medication ?Instructions ?Recorded acetaminophen 300 mg-codeine 30 mg See Rx Instructions .Route 09/09/24 tablet .COMPLEX PRN pain #180 tabs methocarbamol 750 mg tablet 750 mg PO Q8H #20 tabs 06/19/25 Allergies Allergy/AdvReac Type Severity Reaction Status Date / Time ibuprofen (From Motrin) AdvReac Mild Hives Verified 06/19/25 20:17 Opioid HPI Opioid Management Most Recent Opioid Data: Last Pain Scale 5 05/24/25, 08:11 Last ED Pain Assessment Today, 21:10 Review of Systems ROS Status of ROS 10 or more systems reviewed and unremarkable except as noted in history and below PFSH PFS Medical History Melanoma ?C43.9 - Malignant melanoma of skin, unspecified (ICD-10) Tobacco user ?Z72.0 - Tobacco use (ICD-10) Type 2 diabetes mellitus with hyperglycemia ?E11.65 - Type 2 diabetes mellitus with hyperglycemia (ICD-10) Acute exacerbation of chronic obstructive pulmonary disease (COPD) ?J44.1 - Chronic obstructive pulmonary disease with (acute) exacerbation (ICD-10) Lumbar degenerative disc disease ?M51.36 - Other intervertebral disc degeneration, lumbar region (ICD-10) Influenza ?J11.1 - Influenza due to unidentified influenza virus with other respiratory manifestations (ICD-10) Acute bronchospasm ?J98.01 - Acute bronchospasm (ICD-10) Postoperative pain, acute, shoulder ?G89.18 - Other acute postprocedural pain (ICD-10) ?M25.519 - Pain in unspecified shoulder (ICD-10) Fever ?R50.9 - Fever, unspecified (ICD-10) Acute pain of right shoulder ?M25.511 - Pain in right shoulder (ICD-10) Rotator cuff arthropathy of right shoulder ?M12.811 - Other specific arthropathies, not elsewhere classified, right shoulder (ICD-10) Diabetes ?E11.9 - Type 2 diabetes mellitus without complications (ICD-10) COPD (chronic obstructive pulmonary disease) ?J44.9 - Chronic obstructive pulmonary disease, unspecified (ICD-10) Surgical History H/O colonoscopy ?Z98.890 - Other specified postprocedural states (ICD-10) History of carpal tunnel release ?Z98.890 - Other specified postprocedural states (ICD-10) H/O lumbosacral spine surgery ?Z98.890 - Other specified postprocedural states (ICD-10) S/P right rotator cuff repair ?Z98.890 - Other specified postprocedural states (ICD-10) Family History Other Family history of COPD (chronic obstructive pulmonary disease) Family history of cancer Family history of hypertension Social History Within the past year, how often did you have a drink containing alcohol: never Score interpretation: A score less than 4 is consistent with normal alcohol consumption. Smoking status: Current every day smoker Non-prescribed substance use: denies use Previous occupational history: retired Highest level of school completed/degree received: GED or equivalent Are you now , , , , never or living with a partner: In a typical week, how many times do you talk on the telephone with family, friends, or neighbors: 3 or more times per week How often do you get together with friends or relatives: 3 or more times per week How often do you attend evangelical or advent services: never Do you belong to any clubs or organizations such as evangelical groups unions, fra[employer]ruly [employer]omplished or athletic groups, or school groups: no Total score: 2 Score interpretation: A score of greater than or equal to 2 indicates the lowest level of social isolation. Little interest or pleasure in doing things: not at all Feeling down, depressed, or hopeless: not at all Feel stressed/tense/nervous/anxious/difficulty sleeping: not at all Do you think of yourself as: straight/heterosexual Gender Identity: male Exam Narrative Exam Narrative: General: No distress, age-appropriate Skin: Warm, dry, no pallor. No rash. Head: Normocephalic, atraumatic. Neck: Supple, non-tender. Eye: Pupils are equal, round and EOMI. No scleral icterus. Ears, Nose, Mouth, and Throat: No nasal mucosal hypertrophy. Oral mucosa is moist, no posterior oropharynx erythema, uvula is mid-line Cardiovascular: Regular Rate and Rhythm without murmur, gallop or rub. Respiratory: No accessory muscle use or respiratory distress. Lungs are clear to auscultation, no wheezing, rales or rhonchi Chest Wall: no tenderness Back: No midline thoracic or lumbar vertebral tenderness. Musculoskeletal: Full ROM of all extremities, no calf or popliteal tenderness GI: Abdomen is soft, non-distended, non tender to palpation. No masses appreciated. No rebound, guarding, or rigidity noted. Right CVA tenderness. Neurological: A&O x4. No cranial nerve dysfunction observed. No truncal ataxia. Moves all extremities. Sensation intact. Psychiatric: Cooperative and interactive. Normal mood and affect. Constitutional Vital Signs, click to edit/add: Last Vital Signs Temp 98.1 F 06/19/25 20:17 Pulse 68 06/19/25 20:17 Resp 20 06/19/25 20:17 BP 152/92 H 06/19/25 20:17 Pulse Ox 99 06/19/25 20:17 O2 Del Method Room Air 06/19/25 20:17 Course Vital Signs Vital signs: Vital Signs Temperature 98.1 F 06/19/25 20:17 Pulse Rate 68 06/19/25 20:17 Respiratory Rate 20 06/19/25 20:17 Blood Pressure 152/92 H 06/19/25 20:17 Pulse Oximetry 99 06/19/25 20:17 Oxygen Delivery Method Room Air 06/19/25 20:17 Temperature 98.1 F 06/19/25 20:17 Pulse Rate 68 06/19/25 20:17 Respiratory Rate 20 06/19/25 20:17 Blood Pressure 152/92 H 06/19/25 20:17 Pulse Oximetry 99 06/19/25 20:17 Oxygen Delivery Method Room Air 06/19/25 20:17 Medical Decision Making MDM Narrative Medical decision making narrative: This is a 65-year-old male that presented to the ED with complaints of right flank pain that started yesterday, no trauma. He does have a history of kidney stones previously, no history of surgery for them. He has been taking Tylenol 3 that he has for his back, no relief of his pain. He denies any urinary symptoms but is having a lot of nausea, no vomiting or diarrhea. On arrival patient appears uncomfortable, sitting on the edge of the bed, sometimes standing secondary to pain. BP is hypertensive 152/92, pulse 68, temperature 98.1 ?F. IV placed. 1 L NS ordered. 30 mg IV Toradol and 0.5 mg Dilaudid ordered for pain. 4 mg IV Zofran ordered for nausea. CBC, CMP, UA, CT abdomen/pelvis without ordered. No leukocytosis, WBC 7.5, CMP largely WNL, no JOHANN, UA negative for infection. At this time, 2200, my shift is coming to an end and patient's care was signed out to Dr. Irizarry. Patient's disposition is pending CT results and pain/nausea control. Differential Diagnosis Differential Diagnosis: Nephrolithiasis, hydronephrosis, Pilonephritis, Lab Data Lab results reviewed: Yes I reviewed the patient's lab results Labs: Lab Results 06/19/25 06/19/25 Range/Units 20:30 21:05 WBC 7.5 (4.0-11.0) 10^3/uL RBC 5.38 (4.70-6.10) 10^6/uL Hgb 16.0 (14.0-18.0) g/dL Hct 47.6 (42.0-54.0) % MCV 88.5 (80.0-94.0) fL MCH 29.7 (25.9-34.0) pg MCHC 33.6 (29.9-35.2) g/dL RDW 13.2 (11.0-15.0) % Plt Count 286 (150-450) 10^3/uL MPV 8.6 L (9.5-13.5) fL Neut % (Auto) 44.0 (43.0-75.0) % Lymph % (Auto) 36.7 (20.5-60.0) % Stone % (Auto) 13.9 H (1.7-12.0) % Eos % (Auto) 4.2 (0.9-7.0) % Baso % (Auto) 0.9 (0.2-2.0) % Neut # (Auto) 3.3 (1.4-6.5) 10^3/uL Lymph # (Auto) 2.8 (1.2-3.8) 10^3/uL Stone # (Auto) 1.1 H (0.3-0.8) 10^3/uL Eos # (Auto) 0.3 (0.0-0.7) 10^3/uL Baso # (Auto) 0.1 (0.0-0.1) 10^3/uL Abs Immat Gran (auto) 0.02 (0.00-0.03) 10^3/uL Imm/Tot Granulo (auto) 0.3 (0.0-0.5) % Sodium 135 L (136-145) mmol/L Potassium 4.5 (3.5-5.1) mmol/L Chloride 104 (98-107) mmol/L Carbon Dioxide 26.5 (21.0-32.0) mmol/L Anion Gap 9.0 BUN 14.0 (7.0-18.0) mg/dL Creatinine 0.70 (0.70-1.30) mg/dL Est GFR ( Amer) >60 (>=60 mL/min/1.73m^2) Est GFR (Non-Af Amer) >60 (>=60 mL/min/1.73m^2) BUN/Creatinine Ratio 20.0 Glucose 165 H (74-106) mg/dL Calcium 8.8 (8.5-10.1) mg/dL Total Bilirubin 0.2 (0.2-1.0) mg/dL AST 19 (15-37) U/L ALT 35 (16-63) U/L Alkaline Phosphatase 100 (46-116) U/L Total Protein 6.7 (6.4-8.2) g/dL Albumin 3.5 (3.4-5.0) g/dL Globulin 3.2 g/dL Albumin/Globulin Ratio 1.1 Urine Color Lt. yellow (YELLOW) Urine Clarity Clear (CLEAR) Urine pH 7.0 (5.0-9.0) Ur Specific [place] 1.020 (1.005-1.025) Urine Protein Negative (NEG/TRACE) mg/dL Urine Glucose (UA) >=1000 A (NEGATIVE) mg/dL Urine Ketones Negative (NEGATIVE) mg/dL Urine Occult Blood Negative (NEGATIVE) Urine Nitrite Negative (NEGATIVE) Urine Bilirubin Negative (NEGATIVE) Urine Urobilinogen 0.2 (0.2-1.0) EU/dL Ur Leukocyte Esterase Negative (NEGATIVE) Urine RBC None seen (0-2) #/HPF Urine WBC 0-2 A (NONE SEEN) #/HPF Ur Squamous Epith Cells Rare (NONE/RARE) #/LPF Urine Crystals None seen (None Seen) #/HPF Urine Bacteria Trace A (NONE SEEN) #/HPF Urine Casts None seen (NONE SEEN) #/LPF Urine Mucus None seen (NONE SEEN) Ur Culture Indicated? No Discharge Plan Discharge Chief Complaint: Urogenital-Male Clinical Impression: Acute flank pain Patient Disposition: Home, Self-Care Time of Disposition Decision: 23:45 Condition: Good Mode of Transportation: Private Vehicle Prescriptions / Home Meds: New methocarbamol 750 mg tablet 750 mg PO Q8H Qty: 20 0RF No Action (DME) lancets [Accu-Chek Fastclix Lancet Drum] Misc MISCELLANEOUS glipizide-metformin 5-500 mg tablet 1 tab PO BID albuterol sulfate 90 mcg/actuation HFA aerosol inhaler 2 puff INHALATION Q6H PRN (Reason: shortness of breath or wheezing) acetaminophen-codeine 300-30 mg tablet See Rx Instructions .ROUTE .COMPLEX PRN (Reason: pain) Qty: 180 0RF Rx Instructions: 1-2 TABS PO TID PRN #180 MUST LAST 30 DAYS ondansetron 4 mg tablet,disintegrating omeprazole 40 mg capsule,delayed release(DR/EC) 40 mg PO DAILY cyclobenzaprine 10 mg tablet 10 mg PO HS Print Language: Persian Instructions: Flank Pain (ED) Additional Instructions: Do not take cyclobenzaprine while on methocarbamol. Referrals: Hannah Gallo MD [Primary Care Provider, Family Practice] - 1 week Documented by User: Vinicius Irizarry MD 06/19/25 23:47 HPI HPI - General Adult General Chief complaint: Urogenital-Male Stated complaint: THINKS HE HAS A KIDNEY STONE AGAIN Time Seen by Provider: 06/19/25 20:19 Related Data Home Medications ?Medication ?Instructions ?Recorded ?Confirmed glipizide 5 mg-metformin 500 mg 1 tab PO BID 08/23/23 05/24/25 tablet lancets (Accu-Chek Fastclix Lancet 09/08/23 09/08/23 Drum) albuterol sulfate 90 mcg/actuation 2 puff inhalation Q6H PRN 06/01/24 05/24/25 aerosol inhaler shortness of breath or wheezing ondansetron 4 mg disintegrating mg 04/05/25 tablet cyclobenzaprine 10 mg tablet 10 mg PO HS 05/25/25 05/25/25 omeprazole 40 mg capsule,delayed 40 mg PO DAILY 05/25/25 05/25/25 release Previous Rx's ?Medication ?Instructions ?Recorded acetaminophen 300 mg-codeine 30 mg See Rx Instructions .Route 09/09/24 tablet .COMPLEX PRN pain #180 tabs methocarbamol 750 mg tablet 750 mg PO Q8H #20 tabs 06/19/25 Allergies Allergy/AdvReac Type Severity Reaction Status Date / Time ibuprofen (From Motrin) AdvReac Mild Hives Verified 06/19/25 20:17 Opioid HPI Opioid Management Most Recent Opioid Data: Last Pain Scale 5 05/24/25, 08:11 Last ED Pain Assessment Today, 21:10 PFSH PFS Medical History Melanoma ?C43.9 - Malignant melanoma of skin, unspecified (ICD-10) Tobacco user ?Z72.0 - Tobacco use (ICD-10) Type 2 diabetes mellitus with hyperglycemia ?E11.65 - Type 2 diabetes mellitus with hyperglycemia (ICD-10) Acute exacerbation of chronic obstructive pulmonary disease (COPD) ?J44.1 - Chronic obstructive pulmonary disease with (acute) exacerbation (ICD-10) Lumbar degenerative disc disease ?M51.36 - Other intervertebral disc degeneration, lumbar region (ICD-10) Influenza ?J11.1 - Influenza due to unidentified influenza virus with other respiratory manifestations (ICD-10) Acute bronchospasm ?J98.01 - Acute bronchospasm (ICD-10) Postoperative pain, acute, shoulder ?G89.18 - Other acute postprocedural pain (ICD-10) ?M25.519 - Pain in unspecified shoulder (ICD-10) Fever ?R50.9 - Fever, unspecified (ICD-10) Acute pain of right shoulder ?M25.511 - Pain in right shoulder (ICD-10) Rotator cuff arthropathy of right shoulder ?M12.811 - Other specific arthropathies, not elsewhere classified, right shoulder (ICD-10) Diabetes ?E11.9 - Type 2 diabetes mellitus without complications (ICD-10) COPD (chronic obstructive pulmonary disease) ?J44.9 - Chronic obstructive pulmonary disease, unspecified (ICD-10) Surgical History H/O colonoscopy ?Z98.890 - Other specified postprocedural states (ICD-10) History of carpal tunnel release ?Z98.890 - Other specified postprocedural states (ICD-10) H/O lumbosacral spine surgery ?Z98.890 - Other specified postprocedural states (ICD-10) S/P right rotator cuff repair ?Z98.890 - Other specified postprocedural states (ICD-10) Family History Other Family history of COPD (chronic obstructive pulmonary disease) Family history of cancer Family history of hypertension Social History Within the past year, how often did you have a drink containing alcohol: never Score interpretation: A score less than 4 is consistent with normal alcohol consumption. Smoking status: Current every day smoker Non-prescribed substance use: denies use Previous occupational history: retired Highest level of school completed/degree received: GED or equivalent Are you now , , , , never or living with a partner: In a typical week, how many times do you talk on the telephone with family, friends, or neighbors: 3 or more times per week How often do you get together with friends or relatives: 3 or more times per week How often do you attend evangelical or advent services: never Do you belong to any clubs or organizations such as evangelical groups unions, fraternal or athletic groups, or school groups: no Total score: 2 Score interpretation: A score of greater than or equal to 2 indicates the lowest level of social isolation. Little interest or pleasure in doing things: not at all Feeling down, depressed, or hopeless: not at all Feel stressed/tense/nervous/anxious/difficulty sleeping: not at all Do you think of yourself as: straight/heterosexual Gender Identity: male Exam Constitutional Vital Signs, click to edit/add: Last Vital Signs Temp 98.1 F 06/19/25 20:17 Pulse 68 06/19/25 20:17 Resp 20 06/19/25 20:17 BP 152/92 H 06/19/25 20:17 Pulse Ox 99 06/19/25 20:17 O2 Del Method Room Air 06/19/25 20:17 Course Vital Signs Vital signs: Vital Signs Temperature 98.1 F 06/19/25 20:17 Pulse Rate 68 06/19/25 20:17 Respiratory Rate 20 06/19/25 20:17 Blood Pressure 152/92 H 06/19/25 20:17 Pulse Oximetry 99 06/19/25 20:17 Oxygen Delivery Method Room Air 06/19/25 20:17 Temperature 98.1 F 06/19/25 20:17 Pulse Rate 68 06/19/25 20:17 Respiratory Rate 20 06/19/25 20:17 Blood Pressure 152/92 H 06/19/25 20:17 Pulse Oximetry 99 06/19/25 20:17 Oxygen Delivery Method Room Air 06/19/25 20:17 Medical Decision Making MDM Narrative Medical decision making narrative: This is a 65-year-old male that presented to the ED with complaints of right flank pain that started yesterday, no trauma. He does have a history of kidney stones previously, no history of surgery for them. He has been taking Tylenol 3 that he has for his back, no relief of his pain. He denies any urinary symptoms but is having a lot of nausea, no vomiting or diarrhea. On arrival patient appears uncomfortable, sitting on the edge of the bed, sometimes standing secondary to pain. BP is hypertensive 152/92, pulse 68, temperature 98.1 ?F. IV placed. 1 L NS ordered. 30 mg IV Toradol and 0.5 mg Dilaudid ordered for pain. 4 mg IV Zofran ordered for nausea. CBC, CMP, UA, CT abdomen/pelvis without ordered. No leukocytosis, WBC 7.5, CMP largely WNL, no JOHANN, UA negative for infection. At this time, 2200, my shift is coming to an end and patient's care was signed out to Dr. Irizarry. Patient's disposition is pending CT results and pain/nausea control. JK 11:45pm CAT scan per radiologist shows no acute findings. He will be treated symptomatically with methocarbamol. At this point my clinical impression is that the patient has muscular pain. Treatment diagnosis and follow-up were discussed with the patient. Differential Diagnosis Differential Diagnosis: Nephrolithiasis, hydronephrosis, pyelonephritis Lab Data Lab results reviewed: Yes I reviewed the patient's lab results Labs: Lab Results 06/19/25 06/19/25 Range/Units 20:30 21:05 WBC 7.5 (4.0-11.0) 10^3/uL RBC 5.38 (4.70-6.10) 10^6/uL Hgb 16.0 (14.0-18.0) g/dL Hct 47.6 (42.0-54.0) % MCV 88.5 (80.0-94.0) fL MCH 29.7 (25.9-34.0) pg MCHC 33.6 (29.9-35.2) g/dL RDW 13.2 (11.0-15.0) % Plt Count 286 (150-450) 10^3/uL MPV 8.6 L (9.5-13.5) fL Neut % (Auto) 44.0 (43.0-75.0) % Lymph % (Auto) 36.7 (20.5-60.0) % Stone % (Auto) 13.9 H (1.7-12.0) % Eos % (Auto) 4.2 (0.9-7.0) % Baso % (Auto) 0.9 (0.2-2.0) % Neut # (Auto) 3.3 (1.4-6.5) 10^3/uL Lymph # (Auto) 2.8 (1.2-3.8) 10^3/uL Stone # (Auto) 1.1 H (0.3-0.8) 10^3/uL Eos # (Auto) 0.3 (0.0-0.7) 10^3/uL Baso # (Auto) 0.1 (0.0-0.1) 10^3/uL Abs Immat Gran (auto) 0.02 (0.00-0.03) 10^3/uL Imm/Tot Granulo (auto) 0.3 (0.0-0.5) % Sodium 135 L (136-145) mmol/L Potassium 4.5 (3.5-5.1) mmol/L Chloride 104 (98-107) mmol/L Carbon Dioxide 26.5 (21.0-32.0) mmol/L Anion Gap 9.0 BUN 14.0 (7.0-18.0) mg/dL Creatinine 0.70 (0.70-1.30) mg/dL Est GFR ( Amer) >60 (>=60 mL/min/1.73m^2) Est GFR (Non-Af Amer) >60 (>=60 mL/min/1.73m^2) BUN/Creatinine Ratio 20.0 Glucose 165 H (74-106) mg/dL Calcium 8.8 (8.5-10.1) mg/dL Total Bilirubin 0.2 (0.2-1.0) mg/dL AST 19 (15-37) U/L ALT 35 (16-63) U/L Alkaline Phosphatase 100 (46-116) U/L Total Protein 6.7 (6.4-8.2) g/dL Albumin 3.5 (3.4-5.0) g/dL Globulin 3.2 g/dL Albumin/Globulin Ratio 1.1 Urine Color Lt. yellow (YELLOW) Urine Clarity Clear (CLEAR) Urine pH 7.0 (5.0-9.0) Ur Specific [place] 1.020 (1.005-1.025) Urine Protein Negative (NEG/TRACE) mg/dL Urine Glucose (UA) >=1000 A (NEGATIVE) mg/dL Urine Ketones Negative (NEGATIVE) mg/dL Urine Occult Blood Negative (NEGATIVE) Urine Nitrite Negative (NEGATIVE) Urine Bilirubin Negative (NEGATIVE) Urine Urobilinogen 0.2 (0.2-1.0) EU/dL Ur Leukocyte Esterase Negative (NEGATIVE) Urine RBC None seen (0-2) #/HPF Urine WBC 0-2 A (NONE SEEN) #/HPF Ur Squamous Epith Cells Rare (NONE/RARE) #/LPF Urine Crystals None seen (None Seen) #/HPF Urine Bacteria Trace A (NONE SEEN) #/HPF Urine Casts None seen (NONE SEEN) #/LPF Urine Mucus None seen (NONE SEEN) Ur Culture Indicated? No Imaging Data CT scan - abdomen: Radiologist's impression: No renal, ureteral, or bladder stone Discharge Plan Discharge Chief Complaint: Urogenital-Male Clinical Impression: Acute flank pain Patient Disposition: Home, Self-Care Time of Disposition Decision: 23:45 Condition: Good Mode of Transportation: Private Vehicle Prescriptions / Home Meds: New methocarbamol 750 mg tablet 750 mg PO Q8H Qty: 20 0RF No Action (DME) lancets [Accu-Chek Fastclix Lancet Drum] Misc MISCELLANEOUS glipizide-metformin 5-500 mg tablet 1 tab PO BID albuterol sulfate 90 mcg/actuation HFA aerosol inhaler 2 puff INHALATION Q6H PRN (Reason: shortness of breath or wheezing) acetaminophen-codeine 300-30 mg tablet See Rx Instructions .ROUTE .COMPLEX PRN (Reason: pain) Qty: 180 0RF Rx Instructions: 1-2 TABS PO TID PRN #180 MUST LAST 30 DAYS ondansetron 4 mg tablet,disintegrating omeprazole 40 mg capsule,delayed release(DR/EC) 40 mg PO DAILY cyclobenzaprine 10 mg tablet 10 mg PO HS Print Language: Persian Instructions: Flank Pain (ED) Additional Instructions: Do not take cyclobenzaprine while on methocarbamol. Referrals: Hannah Gallo MD [Primary Care Provider, Family Practice] - 1 week
[2025-06-19 20:33] LABS: Hematocrit 47.6 % (42.0-54.0); Hemoglobin 16.0 g/dL (14.0-18.0); Immature Granulocytes Abs Auto 0.02 10^3/uL (0.00-0.03); Immature Granulocytes Pct Auto 0.3 % (0.0-0.5); Lymphocytes Absolute Auto 2.8 10^3/uL (1.2-3.8); Mean Corpuscular HGB Conc 33.6 g/dL (29.9-35.2); Mean Corpuscular Hemoglobin 29.7 pg (25.9-34.0); Mean Corpuscular Volume 88.5 fL (80.0-94.0); Platelet Count 286 10^3/uL (150-450); Red Blood Count 5.38 10^6/uL (4.70-6.10); White Blood Count 7.5 10^3/uL (4.0-11.0)
[2025-06-19] MEDS: 0.9 % SODIUM CHLORIDE 1,000 ML 999 ML IV (20:44)
[2025-06-19 20:46] LABS: Alanine Aminotransferase 35 U/L (16-63); Albumin Globulin Ratio 1.1; Albumin Level 3.5 g/dL (3.4-5.0); Alkaline Phosphatase 100 U/L (46-116); Anion Gap 9.0; Aspartate Amino Transferase 19 U/L (15-37); Blood Urea Nitrogen 14.0 mg/dL (7.0-18.0); Calcium 8.8 mg/dL (8.5-10.1); Carbon Dioxide 26.5 mmol/L (21.0-32.0); Chloride 104 mmol/L (98-107); Estimated GFR (African America >60 (>=60 mL/min/1.73m^2); Estimated GFR (Non-African Ame >60 (>=60 mL/min/1.73m^2); Globulin 3.2 g/dL; Glucose 165 mg/dL (74-106); Potassium 4.5 mmol/L (3.5-5.1); Sodium 135 mmol/L (136-145); Total Protein 6.7 g/dL (6.4-8.2)
[2025-06-19] MEDS: HYDROMORPHONE HCL 0.5 MG/0.5 ML SYRINGE IV (20:47)
[2025-06-19] MEDS: KETOROLAC TROMETHAMINE 30 MG/ML VIAL IVP (20:47)
[2025-06-19 21:20] LABS: Glucose Urine UA >=1000 mg/dL (NEGATIVE)
[2025-06-19 21:25] LABS: Cast Seen? NONE SEEN #/LPF (NONE SEEN); Crystals Seen? None Seen #/HPF (None Seen); Urine Culture Indicated NO
== END 2025-06-19 23:55 | disposition home or self-care (01) ==
PROVIDERS: Physician Assistant; Emergency Provider Emergency Medicine; PCP Family Medicine
DX: R10.9 Unspecified abdominal pain (principal); J44.9 Chronic obstructive pulmonary disease, unspecified; Z87.442 Personal history of urinary calculi; F17.200 Nicotine dependence, unspecified, uncomplicated; K57.30 Diverticulosis of large intestine without perforation or abscess without bleeding
CPT/HCPCS: 36415; 74176; 80053; 81001; 85025; 96374; 96375; 99285; J1171; J1885; J2405

== ENCOUNTER 2025-06-24 07:50 | Outpatient (OUT) | payer MEDICARE, MEDICAID, SELFPAY ==
--- OUTSIDE RECORDS SUMMARY | 2025-06-24 07:53 | XMS_ITS | Clinical Summary ---
Author Organization [facility] Address [address] [place] [address] Care Team Providers Care Route Delivery Clerk Name Role Phone Hannah Gallo MD Primary Care Provider [phone] Allergies Active AllergyReactionsCriticalityNoted DateCommentsDuloxetine HclGI intolerance 04/07/20249288Qylzoxym74/31/2024 Other Reaction(s): Hives LyadjilojXztrRpc09/16/2019 hives Iodinated Contrast EgvptHowhXlz99/16/2019 hives Gprfxjzvq03/31/2024 Other Reaction(s): Hives Adzfteqonv26/31/2024 Other Reaction(s): shortness of breath Dovkryupxd76/31/2024 Other Reaction(s): shortness of breath Medications MedicationSigDispense QuantityRefillsLast FilledStart DateEnd DateStatus glipiZIDE-metFORMIN (Metaglip) 5-500 MG tablet Take 2 tablets by mouth in the morning and 2 tablets before bedtime.07/19/2023 Active acetaminophen-codeine (Tylenol w/ Codeine #3) 300-30 MG tablet Take 1 tablet by mouth every 6 (six) hours if asgnlr8910/03/2023ctive tiZANidine (Zanaflex) 4 MG tablet Take 4 mg by mouth every 6 (six) hours if needed for muscle wgpntq8910/14/2023 Active Active Problems ProblemNoted DateDiagnosed DateLiver mass04/07/2024Kidney cysts04/07/2024Neck mass04/07/20247414Vcjbkrqlln35/13/2024hronic obstructive pulmonary disease, /13/2024Lumbar pain03/31/2024Mass of left submandibular region 03/31/2024Type II diabetes jvjelfyd31/13/2024ositive colorectal cancer screening using Cologuard test03/27/2023Epigastric pain03/27/2023allbladder polyp03/27/2023Esophageal fvqocjgjz90/09/2023rthritis of left acromioclavicular joint03/25/2023Incomplete tear of left rotator cuff03/25/2023Internal derangement of left zrnuknmo95/07/2023Rotator cuff arthropathy of left shoulder 01/28/2023Rotator cuff impingement syndrome of right rxytbzle59/12/2023 Immunizations ImmunizationAdministration DatesNext DueInfluenza, injectable, MDCK, preservative free, sfbfqnouznmh39/15/2018Influenza, injectable, quadrivalent, preservative free05/16/2017,06/28/2016Influenza, seasonal, injectable, preservative [...] SodaSex and Gender InformationValueDate RecordedSex Assigned at WckttYtpa11/03/2024 9:53 AM ESTLegal EexOkts0412/17/2022 8:35 PM EDTGender ZskhapoqZhsj06/03/2024 9:53 AM ESTSexual EjrbrgjjivnCsxqgyvk16/03/2024 9:53 AM EST Last Filed Vital Signs Vital SignReadingTime TakenCommentsBlood Dbwyjvgq633/8808/ 10:04 AM EDT Pulse--Zvgtfyewqfg77.2 ??C (97.2 ??F)06/03/2023 8:17 AM EDTRespiratory Rate-- Oxygen Saturation--Inhaled Oxygen Concentration--Alcxkz411 kg (235 lb)04/07/2024 10:04 AM DBUIulvpb102.3 cm (5' 11 )04/07/2024 10:04 AM EDTBody Mass Index32.78 04/07/2024 10:04 AM EDT Plan of Treatment Not on file Insurance Care Teams Team MemberRelationshipSpecialtyStart DateEnd Date Hannah Gallo MD PCP - GeneralFamily Medicine01/23/23
--- OUTSIDE RECORDS SUMMARY | 2025-06-24 07:53 | XMS_ITS | Clinical Summary ---
Author Organization [facility] Address [address] [place] [address] Care Team Providers Care Filenet Developer Name Role Phone Hannah Gallo MD Unavailable [phone] Social History Tobacco UseTypesPacks/DayYears UsedDateSmoking Tobacco: Never AssessedSex and Gender InformationValueDate RecordedSex Assigned at BirthNot on fileLegal Sex Male07/20/2012 8:58 AM ESTGender IdentityNot on fileSexual OrientationNot on file Plan of Treatment Not on file Insurance Care Teams Team MemberRelationshipSpecialtyStart DateEnd Date Hannah Gallo MD [address] [place] [address] ReferringFamily Medicine05/12/24
--- OUTSIDE RECORDS SUMMARY | 2025-06-24 07:53 | XMS_ITS | Encounter Summary ---
Author Organization [facility] Address [address] [place] [address] Care Team Providers Care Reconciliation Coordinator Name Role Phone Hannah Gallo MD Primary Care Provider [phone] Encounter Details DateTypeDepartmentCare Team (Latest Contact Info)Decyignhdni79/21/2024Clinisync Result Encounter [facility] External Department Unsolicited Malathi Jimenez MD [address] [facility] [address] [place] [address] Social History Tobacco UseTypesPacks/DayYears UsedDateSmoking Tobacco: Every DayCigarettes Smokeless Tobacco: NeverAlcohol UseStandard Drinks/WeekCommentsNever0 (1 standard drink = 0.6 oz pure alcohol)Caffine- SodaSex and Gender Information ValueDate RecordedSex Assigned at UirfeXaxv88/03/2024 9:53 AM ESTLegal SexMale 12/17/2022 8:35 PM EDTGender JszibuoaBktv76/03/2024 9:53 AM ESTSexual PbdufseqqkrAtclmzhw09/03/2024 9:53 AM ESTdocumented as of this encounter Plan of Treatment Not on file documented as of this encounter Procedures Procedure NamePriorityDate/TimeAssociated DiagnosisCommentsFL MODIFIED BARIUM BFIBVRD7904/08/2024 10:57 AM EDT documented in this encounter Results * [place] MODIFIED BARIUM SWALLOW (04/08/2024 10:57 AM EDT)Anatomical Region LateralityModalityRadiographic ImagingSpecimen (Source)Anatomical Location / LateralityCollection Method / VolumeCollection TimeReceived Time04/08/2024 10:57 AM EDT Narrative 04/08/2024 11:00 AM EDT [facility] ?[address] ? [place] [address] ? Fluoroscopy Report ? Signed ? Patient: NICHOLAS ZIEGLER ?MR#: [id number] ?? : 1960 ?Acct:[id number] ?? Age/Sex: 63 / M ?ADM Date: 04/08/24 ?? Loc: [place] ? Attending Dr: Malathi Jimenez M.D. ? Ordering Physician: Malathi Jimenez M.D. ?? Date of Service: 04/08/24 ?? Procedure(s): [place] barium swallow ?? Accession Number(s): [id number] ? cc: Hannah Gallo M.D.; Malathi Jimenez M.D. ? [facility] ? [address] ? [place] [address] ? Patient Name: ?? NICHOLAS ZIEGLER ? MRN: [facility]:[id number] ? date: 1960 ?Sex: M ?? Assigned Patient Location: [place] ?? Current Patient Location: [place] ?? Accession/Order Number: [id number] ?? Exam Date: 04/08/2024 ??08:45 ?Report Date: [...] 1100 ? DD/ 1057 ? TD/TT: ? Slot Machine Key Person: Procedure Note Radiology, Radiologist, - 04/08/2024 [place] [address] Fluoroscopy Report Signed Patient: NICHOLAS ZIEGLER JMR#: [id number] : 1960Acct:[id number] Age/Sex: 63 / MADM Date: 04/08/24 Loc: [place] Attending Dr: Malathi Jimenez M.D. Ordering Physician: Malathi Jimenez M.D. Date of Service: 04/08/24 Procedure(s): [place] barium swallow Accession Number(s): [id number] cc: Hannah Gallo M.D.; Malathi Jimenez M.D. The [place] [id number] Patient Name: NICHOLAS ZIEGLER MRN: [id number] date: 1960 Sex: M Assigned Patient Location: [place] Current Patient Location: [place] Accession/Order Number: [id number] Exam Date: 04/08/2024 08:45 Report Date: 04/08/2024 [...] M.D. Signed By:04/08/24 1100 DD/ 1057 TD/TT: Slot Machine Key Person: Authorizing ProviderResult TypeResult StatusHilafelicia Jimenez MDIMG XR PROCEDURES Final Result documented in this encounter Visit Diagnoses Not on filedocumented in this encounter Care Teams Team MemberRelationshipSpecialtyStart DateEnd Date Hannah Gallo MD PCP - GeneralFamily Medicine01/23/23documented as of this encounter
--- OUTSIDE RECORDS SUMMARY | 2025-06-24 07:53 | XMS_ITS | Clinical Summary ---
Author Organization [employer] Address [id number] [address] [place] [address] Care Team Providers Care Grinder Operator Automatic Name Role Phone Hannah Gallo MD Primary Care Provider [phone] Allergies Active AllergyReactionsCriticalityNoted DateCommentsIbuprofenHives,RashLow 06/03/2019 hives Iodinated Contrast MediaHives,BmivJts3306/03/2019 hives Medications MedicationSigDispense QuantityRefillsLast FilledStart DateEnd DateStatus [...] of Binge DrinkingNot on file06/03/2019ChildcareAnswerDate RecordedChildcareUnknown 06/01/2019EmploymentAnswerDate XedrwgbtVjqpqfsaycOgboleb49/14/2019Purpose - Life AnswerDate RecordedPurpose and direction in pzhvHzhpmad40/11/2021ex and Gender InformationValueDate RecordedSex Assigned at BirthNot on fileLegal SexMale 06/01/2019 10:38 AM EDTGender IdentityNot on fileSexual OrientationNot on file Last Filed Vital Signs Vital SignReadingTime TakenCommentsBlood Pressure--Pulse--Temperature-- Respiratory Rate--Oxygen Saturation--Inhaled Oxygen Concentration--Bobsof168.3 kg (230 lb)05/27/2024 2:56 PM BTJSwctwh453.3 cm (5' 9 )05/27/2024 2:56 PM EDT Body Mass Index33.9705/27/2024 2:56 PM EDT Plan of Treatment Health MaintenanceDue DateLast DoneCommentsDepression Wqfiewusk24/04/1972Zoster (Shingles) Vaccine (1 of 2)2010Influenza Qpcbvnn47, 05/17/2017, 05/16/2017, Additional history existsFall Risk Mtwcdacos47/04/2025 Adult BMI Zyrmqxlat65Tobacco Wznvhzfxo15 DTaP,Tdap and Td Vaccines (3 - Td or Tdap)6108/28/2015, 05/25/2015RSV ( or age 60+ yrs) (1 - 1-dose 75+ series)2035 [employer] Not on file Insurance Care Teams Team MemberRelationshipSpecialtyStart DateEnd Date Hannah Gallo MD [address] [place] [address] PCP - GeneralFamily Ceeapydz56/16/19
--- OUTSIDE RECORDS SUMMARY | 2025-06-24 07:53 | XMS_ITS | Clinical Summary ---
Author Organization [facility] Address [address] [place] [address] Care Team Providers Care Sales And Service Change Leader Name Role Phone Unavailable Primary Care Provider Unavailabl e Source Comments The following information is NOT included in Care Everywhere downloads:Psychiatric notes, ECG results, Cardiac Rehab notes, Pulmonary Function notes, data from [facility] (includes but not limited toPregnancy data,audiograms, eye exams, pre-surgical evaluation notes, well-child exam data).[facility] Family History Medical HistoryRelationNameCommentsNeurologic DiseaseOthernoRelationNameStatus CommentsOther Social History Tobacco UseTypesPacks/DayYears UsedDateSmoking Tobacco: Every DayCigarettes Alcohol UseStandard Drinks/WeekCommentsNo0 (1 standard drink = 0.6 oz pure alcohol)Substance UseTypesUse/WeekCommentsNoSex and Gender InformationValueDate RecordedSex Assigned at BirthNot on fileLegal BafIibi02/04/2012 9:49 AM EST Gender IdentityNot on fileSexual OrientationNot on file Last Filed Vital Signs Vital SignReadingTime TakenCommentsBlood Tyctfvam282/7803 10:45 AM EDT Ftiiq990511/14/2010 10:45 AM IHSEmorcdxodmg14.6 ??C (97.9 ??F)11/14/2010 10:45 AM EDTRespiratory Rate--Oxygen Saturation--Inhaled Oxygen Concentration--Weight 103.3 kg (227 lb 12.8 oz)11/14/2010 10:45 AM EDTHeight--Body Mass Index-- Plan of Treatment Health MaintenanceDue DateLast WtczWeeuxdzzAlwfavmqklz1960Hepatitis C Powybvri56/04/1978Tdap Gmorulj7305/22/1978Hepatitis A (HAV) Vaccine (optional start 19+ years)1979Tetanus (Td or Tdap) Jmwkkzn9005/22/1979Cholesterol 1995CRC Vtsyxbhpt38/04/2005Cologuard (Stool DNA)2005FIT2005 Pneumococcal Vaccine(s) (50+ yrs) (1 of 1 - PCV)2010Shingles (RZV) Vaccine (1 of 2)2010Hepatitis B (HBV) Vaccine (optional start 60+ years)2020 COVID-19 Vaccine (1 - 2024-26 season)2025Influenza Vaccine (#1)2025 Abdominal Aortic Aneurysm Dgfllgg4105/22/2025RSV vaccine (adult) (1 - 1-dose 75+ series)20[address] [place] [address]
--- OUTSIDE RECORDS SUMMARY | 2025-06-24 07:53 | XMS_ITS | Encounter Summary ---
Author Organization [facility] Address [address] [place] [address] Care Team Providers Care Drier Transfer Car Operator Name Role Phone Hannah Gallo MD Primary Care Provider [phone] Encounter Details DateTypeDepartmentCare Team (Latest Contact Info)Loxuuhsezkz88/21/2024Clinisync Result Encounter [facility] External Department Unsolicited Malathi Jimenez MD [address] [facility] [address] [place] [address] Social History Tobacco UseTypesPacks/DayYears UsedDateSmoking Tobacco: Every DayCigarettes Smokeless Tobacco: NeverAlcohol UseStandard Drinks/WeekCommentsNever0 (1 standard drink = 0.6 oz pure alcohol)Caffine- SodaSex and Gender Information ValueDate RecordedSex Assigned at TlmihFmma58/03/2024 9:53 AM ESTLegal SexMale 12/17/2022 8:35 PM EDTGender GizshzkaGlmj73/03/2024 9:53 AM ESTSexual SzmlcvyyduyEuakcbdo72/03/2024 9:53 AM ESTdocumented as of this encounter Plan of Treatment Not on file documented as of this encounter Procedures Procedure NamePriorityDate/TimeAssociated DiagnosisCommentsXR CINERADIOGRAPHY 04/08/2024 10:57 AM EDT documented in this encounter Results * XR CINERADIOGRAPHY (04/08/2024 10:57 AM EDT)Anatomical RegionLaterality ModalityOtherSpecimen (Source)Anatomical Location / LateralityCollection Method / VolumeCollection TimeReceived Time04/08/2024 10:57 AM EDT Narrative 04/08/2024 11:00 AM EDT [facility] ?[address] ? [place] [address] ? Fluoroscopy Report ? Signed ? Patient: NICHOLAS ZIEGLER J ?MR#: [id number] ?? : 1960 ?Acct:[id number] ?? Age/Sex: 63 / M ?ADM Date: 04/08/24 ?? Loc: [place] ? Attending Dr: Malathi Jimenez M.D. ? Ordering Physician: Malathi Jimenez M.D. ?? Date of Service: 04/08/24 ?? Procedure(s): [place] cineradiography ?? Accession Number(s): [id number] ? cc: Hannah Gallo M.D.; Malathi Jimenez M.D. ? [facility] ? [address] ? [place] [address] ? Patient Name: ?? NICHOLAS ZIEGLER ? MRN: [facility]:[id number] ? date: 1960 ?Sex: M ?? Assigned Patient Location: [place] ?? Current Patient Location: [place] ?? Accession/Order Number: [id number] ?? Exam Date: 04/08/2024 ??08:45 ?Report Date: [...] 1100 ? DD/ 1057 ? TD/TT: ? Supervisor Alteration Workroom: Procedure Note Radiology, Radiologist, MD - 04/08/2024 [place] [address] Fluoroscopy Report Signed Patient: NICHOLAS ZIEGLER JMR#: [id number] : 1960Acct:[id number] Age/Sex: 63 / MADM Date: 04/08/24 Loc: [place] Attending Dr: Malathi Jimenez M.D. Ordering Physician: Malathi Jimenez M.D. Date of Service: 04/08/24 Procedure(s): [place] cineradiography Accession Number(s): [id number] cc: Hannah Gallo M.D.; Malathi Jimenez M.D. The [place] [address] Patient Name: NICHOLAS ZIEGLER MRN: [id number] date: 1960 Sex: M Assigned Patient Location: [place] Current Patient Location: [place] Accession/Order Number: [id number] Exam Date: 04/08/2024 08:45 Report Date: 04/08/2024 10:57 At the request of: MALATHI JIMENEZ Procedure: [place] cineradiography EXAMINATION: [place] barium swallow, [place] cineradiography [...] M.D. Signed By:04/08/24 1100 DD/ 1057 TD/TT: Supervisor Alteration Workroom: Authorizing ProviderResult TypeResult StatusHilary H Barbara MDCLINISYNC IMAGING Final Result documented in this encounter Visit Diagnoses Not on filedocumented in this encounter Care Teams Team MemberRelationshipSpecialtyStart DateEnd Date Hannah Gallo MD PCP - GeneralFamily Medicine01/23/23documented as of this encounter
--- OUTSIDE RECORDS SUMMARY | 2025-06-24 07:55 | XMS_ITS | CCD ---
Author Organization [facility] Care Team Providers Care Senior Data Developer Name Role Phone Ronnie Kesha Unavailable Chepe Harriet Unavailable Jeremy Magallanes Unavailable SONA, DR JEREMY Jovel Admitting Unavailable MAGALLANES, DR JEREMY Jovel Attending Unavailable MAGALLANES, DR JEREMY Jovel Primary Care Unavailable MAGALLANES, DR JEREMY Jovel Consulting Unavailable TAVERASRUBI Consulting Unavailable OLEXA, KESHA Admitting Unavailable OLEXA, KESHA Attending Unavailable MAGALLANES, DR JEREMY Jovel Primary Care Unavailable OAKLAND, DR BARBIE Goldberg Consulting Unavailable OLEXA, KESHA [...] Consulting Unavailable JEREMY MAGALLANES Primary Care Physician [phone] Jeremy Magallanes MD Primary Care Provider [phone] WILLIE, BARBIE Tellez Attending Unavailable POCOS, BARBIE Tellez Referring Unavailable POCOS, BARBIE Tellez Attending Unavailable MALATHI SANCHEZ Attending Unavailable JEREMY MAGALLANES Referring Unavailable POCDORON, JIN Attending Unavailable Jeremy Magallanes MD Unavailable [phone] PRIYANKA BENITES Attending Unavailable JEREMY MAGALLANES Referring [...] Attending Provider Arnoldo Somers MD Attending Provider [phone] [place] JACOB, Andrius Ruth Attending Unavailable Giedrakaterine JACOB, Andrius Vytautchela Attending Unavailable Gifrantz JACOB, Andrius Vytautas Attending Unavailable [place]if[place]z JACOB, Andrius Vytautchela Attending Unavailable Shahzad JACOB, Andrius Vsharlene Attending Unavailable Jeremy Magallanes MD Primary Care Provider Jeremy Magallanes MD Attending Provider [phone] Jeremy Magallanes MD Primary Care Provider Allergies Allergy ClassificationReported Allergen(s)Allergy TypeDate of OnsetReaction(s) Facility (20 sources)IbuprofenDrug AllergyhiPosto7 Other (20 sources)olodaterol / tiotropiumDrug Allergyshortness of breathBenham Content360 Other (20 sources)CT Scan dyePropensity to adverse reactionshiNanoH2O Content360 Other (14 sources)Ibuprofen; Translations: [IBUPROFEN]Drug Jknuzrw66-14-3063hiejbOac [facility] Repository (2 sources)Iodine (And Iodine Containting Drugs)Drug allergy (disorder) 91-73-7083[facility] Repository (1 source)NSAIDsDrug allergy (disorder)[facility] Repository (20 sources)fentaNYLDrug Otapqjg82-62-7707StjzqcrTrinity Health System (14 sources)IbuprofenDrug Tyjsbnu58-92-3196SbfqGolden [facility] (20 sources)OfloxacinDrug Bbqewxz65-59-8320GyxrnsxTrinity Health System (3 sources)zafirlukastDrug Hvjpuax96-95-1199SwugtwyYbqrs Content360 Other (20 sources)Zafirlukast *ANTIASTHMATIC AND BRONCHODILATOR AGENPropensity to adverse reactionsSaint Joseph Health Center Content360 Other (20 sources)Ibuprofen & Diet Manage Prod *ANALGESICS - ANTI-INPropensity to adverse reactionsSaint Joseph Health Center Content360 Other (3 sources)Allergies ReconciledPropensity to adverse reactionsSaint Joseph Health Center Content360 Other (20 sources)Iodinated contrast media (substance)Drug ubncdfd86-34-6287Nsmm, [facility] Content360 Other (3 sources)patient allergy list reviewed by nurse or physiciaPropensity to adverse tfdzjkmyq84-26-9921Pxwaffa:[facility] HospitalFRAMED Content360 Other (17 sources)olodaterolDrug Cjkzpvp32-11-8808wegctqssbC[facility] (17 sources)tiotropiumDrug Zmxvwad79-03-4161qnnzigqioWayne Hospital (12 sources)Iodinated Contrast Media; Translations: [IODINATED CONTRAST MEDIA] Allergy to ysdrcljru18-20-3742GuqnfUyeycuwerMercy Health [facility]ermont Hospital (11 sources)Ibuprofen & Diet Manage Prod *Allergy to hxkyfyldi55-27-5734CcjzzMccullough-Hyde Memorial HospitalComment on above:Free Text Allergy: Ibuprofen & Diet Manage Prod *ANALGESICS - ANTI-IN (11 sources)Zafirlukast *ANTIASTHMATIC ANDAllergy to idnwfelbk35-59-8409NebqpMccullough-Hyde Memorial HospitalComment on above:Free Text Allergy: Zafirlukast *ANTIASTHMATIC AND BRONCHODILATOR AGEN (5 sources)DULoxetineDrug Cptweoq30-67-4150TV [facility] [place] (3 sources)cefdinirDrug Tkjqpzm63-06-6454LukmsecgXytyxcdycNewark HospitalComment on above:nausea, vomiting Medications Current Medications MedicationDrug Class(es)DatesSig (Normalized)Sig (Original)acetaminophen 300 mg / codeine phosphate 30 mg oral tablet (20 sources)Opioid AgonistStart: 35-15-9825unhk 1 tablet by mouth twice daily as neededAcetaminophen-Codeine 300-30 mg tablet Active 1 TAB PO Twice daily as needed February 16, 2025 12:00amComplies with drug therapyStart: 12-05-2023 End: 04-00-8754gudd 1 tablet by mouth every eight hours as needed for pain Acetaminophen-Codeine 300-30 mg tablet Discontinued 1 TAB PO Every 8 hours as needed for pain 90 30April 2023 1:56pm February 16, 2025 2:48pmStart: 10-03-2023 End: 18-93-0260prfz 1 tablet by mouth every six hours as neededacetaminophen- codeine (Tylenol w/ Codeine #3) 300-30 MG tablet Take 1 tablet by mouth every 6 (six)hours if needed 10/03/2023 ActiveStart: 20-82-7029ddlf 1 tablet by mouth every six hoursAcetaminophen-Codeine 300-30 MG 1 tablet as needed Orally every 6 hrs for 30 days Aug, ActiveStart: 24-58-9551mhrx 1 tablet by mouth every six hoursAcetaminophen-Codeine 300-30 MG 1 tablet as needed Orally every 6 hrs for 30 days Aug, ActiveStart: 52-77-7226vcsw 1 tablet by mouth every six hours as neededAcetaminophen-Codeine #3 300-30 MG 1 tablet as needed Orally every 6 hrs for 30 days Apr, ActiveStart: 07-81-5192azzj 1 tablet by mouth every six hoursAcetaminophen-Codeine #3 300-30 MG 1 tablet as needed Orally every 6 hrs for 30 days Apr, ActiveStart: 74-93-8660xupy 1 tablet by mouth every six hoursAcetaminophen-Codeine #3 300-30 MG 1 tablet as needed Orally every 6 hrs for 30 days Mar, ActiveStart: 22-89-2592cyeg 1 tablet by mouth every six hoursAcetaminophen-Codeine #3 300-30 MG 1 tablet as needed Orally every 6 hrs for 30 days Feb, ActiveStart: 70-10-7350pmfm 1 tablet by mouth every six hoursAcetaminophen-Codeine #3 300-30 MG 1 tablet as needed Orally every 6 hrs for 30 days Feb, ActiveStart: 30-60-7907gpna 1 tablet by mouth every six hoursAcetaminophen-Codeine #3 300-30 MG 1 tablet as needed Orally every 6 hrs for 30 days Jan, ActiveStart: 17-37-1228rngd 1 tablet by mouth every six hoursAcetaminophen-Codeine #3 300-30 MG 1 tablet as needed Orally every 6 hrs for 30 days December, ActiveStart: 20-74-5565khmz 1 tablet by mouth every six hoursAcetaminophen-Codeine #3 300-30 MG 1 tablet as needed Orally every 6 hrs for 30 days Nov, ActiveStart: 10-31-2022 Acetaminophen-Codeine #4 300-60 MG 2 Orally bid prn for 30 days Oct, ActiveStart: 60-34-5439Mypzshebjkqpc-Codeine #4 300-60 MG 2 Orally bid prn [...] as needed Orally every 6 hrs Active [id number] 200 actuat albuterol 0.09 mg/actuat metered dose inhaler (20 sources)beta2-Adrenergic AgonistStart: 01-12-2025 End: 16-92-1512awvd 2 puff(s) by inhalation every four hours as neededAlbuterol Sulfate 90 mcg/actuation HFA aerosol inhaler Active 0 .ROUTE .COMPLEX 8.5 May 27, 2025 2:24pm INHALE 2 PUFFS EVERY 4 HOURS NEEDED FOR WHEEZE OR FOR SHORTNESS OF BREATH Complies withdrug therapyStart: 05-01-2024 End: 29-31-1502ndzt 1 puff(s) by inhalation every four hours as needed for wheezingAlbuterol Sulfate 90 mcg/actuation HFA aerosol inhaler Discontinued 2 PUFF INHALATION Every 4 hoursas needed for shortness of breath or wheezing 8.5 October 09, 2024 4:35pm January 12, 2025 12:22pmStart: 06-25-2023 End: 16-40-5462ztpt 2 puff(s) by inhalation every four hoursalbuterol HFA 90 mcg/act inhaler Inhale 2 puffs every 4 (four) hours if needed 06/25/2023 04/07/2024 Discontinued (Therapy completed)Start: 77-50-6067zdpg 2 puff(s) by inhalation every four hours as neededAlbuterol Sulfate HFA 108 (90 Base) MCG/ACT 2 puff Inhalation every 4 hrs prn Aug, ActiveStart: 82-51-2409dmuk 2 puff(s) by inhalation every four hours as neededAlbuterol Sulfate HFA 108 (90 Base) MCG/ACT 2 puff Inhalation every 4 hrs prn Jun, ActiveStart: 93-53-1358ghcl 2 puff(s) by inhalation every four hours [...] 125 mg oral tablet (6 sources)Penicillin-class AntibacterialStart: 15-17-2944ukxd 1 tablet by mouth every twelve hoursAmoxicillin-Pot Clavulanate 875-125 MG 1 tablet Orally every 12 hrs for 10 day(s) Oct, Activeazithromycin 250 mg oral tablet (20 sources)Macrolide AntimicrobialStart: 30-53-2944Wzsvnbjukhzj 250 mg tablet Active 0 PO .COMPLEX 6 May 31, 2025 2:12pm For 250 mg dose pack: take 500 mg today (day 1), then 250 mg for 4 days (days 2-5) PO Complies with drug therapyStart: 12-24-2024 End: 58-42-1700Pintldtyahua 250 mg tablet Discontinued 0 PO .COMPLEX 6 December 24, 2024 12:00am January 21, 2025 9:38amFor 250 mg dose pack: take 500 mg today (day 1), then 250 mg for 4 days (days 2-5) POStart: 06-17-2024 End: 16-70-3200Mjuwbiajprnj 250 mg tablet Discontinued 0 PO .COMPLEX 6 June 17, 2024 12:00am July 23, 2024 11:29am For 250 mg dose pack: take 500 mg today (day 1), then 250 mg for 4 days (days 2-5) POStart: 40-31-1305Zmlztcfasgtd Active 0 PO .COMPLEX 6 June 17, 2024 12:00am For 250 mg dose pack: take 500 mg today (day 1), then 250 mg for 4 days (days 2-5) POStart: 12-20-2023 End: 67-35-6069Yhesbqgbjhqm 250 mg tablet Discontinued 0 PO .COMPLEX 6 December 20, 2023 12:00am March 03, 2024 12:09pm For 250 mg dose pack: take 500 mg today (day 1), then 250 mg for 4 days (days 2-5) POStart: 12-20-2023 End: 67-45-3935Iwehtjiyigoi Discontinued 0 PO .COMPLEX 6 December 20, 2023 12:00am March 03, 2024 12:09pm For 250 mg dose pack: take 500 mg today (day 1), then 250 mg for 4 days (days 2-5) POStart: 68-59-0996Zxspaekiclda 250 MG as directed Orally 2 tabs po today, then 1 tab daily x 4 more days for Sep, Active Start: 79-65-3013Wvlarfivtoyz 250 MG as directed Orally 2 tabs po today, then 1 tab daily x 4 more days for 5 May, ActiveStart: 58-64-5731Djkqrwzfithk 250 MG as directed Orally 2 tabs po today, then 1 tab daily x 4 more days for 5 Apr, ActiveStart: 52-90-0548Smpozfehjkev 250 MG as directed Orally 2 tabs po today, then 1 tab daily x 4 more days for 5 Nov, Active cetirizine hydrochloride 10 mg oral capsule (5 sources)Histamine-1 Receptor AntagonistStart: 14-73-1735cdgo 1 capsule by mouth twice daily as neededCetirizine (Zyrtec) 10 mg capsule Active 10 MG PO Twice daily as needed October 15, 2024 1:00am Complies with drug therapy gabapentin 800 mg oral tablet (1 source)Anti-epileptic AgentStart: 55-69-0602pvubhuyzhp (Neurontin) 800 MG tabletglipiZIDE 5 mg / metFORMIN hydrochloride 500 mg oral tablet (20 sources)Biguanide, SulfonylureaStart: 10-22-2024 End: 83-78-1575szub 2 tablets by mouth twice dailyGlipizide-Metformin 5-500 mg tablet Active 0 .ROUTE .COMPLEX 360 April 21, 2025 10:31am TAKE 2TABLETS BY MOUTH TWICE DAILY Complies with drug therapyStart: 22-88-9975wqpn 2 tablets by mouth in the morningglipiZIDE-metFORMIN (Metaglip) 5-500 MG tablet Take 2 tablets by mouth in the morning and 2 tabletsbefore bedtime. 07/19/2023 Active Start: 07-19-2023 End: 88-43-8896caqy 2 tablets by mouth twice dailyGlipizide-Metformin 5-500 [...] mg oral tablet (20 sources)Start: 01-21-2025 End: 01-69-7517albr 4 tablets by mouth once daily, then [...] days Complies with drug therapyStart: 12-22-2024 End: 18-57-7060kjeo 1 tablet by mouth twice dailyPrednisone 20 mg tablet Discontinued 20 MG PO Twice daily December 22, 2024 12:00am January 21, 2025 9:39am Start: 06-17-2024 End: 11-92-3817toxy 1 tablet by mouth twice dailyPrednisone 20 mg tablet Discontinued 20 MG PO Twice daily August 28, 2024 2:19pm October 15, 2024 10:03amStart: 99-27-0843ljojpvTFVD 10 MG 4 tabs po daily x 2 days, 3 tabs daily x 2 days, 2 tabs daily x 2 days, 1 tab daily x 2 days Orally Once a day for 8 Apr, ActiveStart: 49-22-9405quuf 2 tablets by mouth every twenty- four hourspredniSONE 20 MG 2 tablets Orally Once a day for 5 days Nov, ActivepredniSONE 20 MG TAKE 3 TABLETS BY MOUTH DAILY X 3 DAYS, 2 TABLETS DAILY X 3 DAYS, 1 TABLET DAILY X3 DAYS for 9 Activerosuvastatin calcium 20 mg oral tablet (1 source)HMG-CoA Reductase InhibitorStart: 73-97-7567npbz 1 tablet by mouth once dailyRosuvastatin 20 mg tablet Active 20 MG PO Daily March 13, 2025 12:00am Complies with drug therapytiZANidine 4 mg oral tablet (7 sources)Central alpha-2 Adrenergic AgonistStart: 44-31-7087qgsc 1 tablet by mouth every six hours as neededtiZANidine (Zanaflex) 4 MG tablet Take 4 mg by mouth every 6 (six) hours if needed for muscle spasms 10/14/2023 ActiveStart: 11-30-3037fung 1 tablet by mouth at bedtime as neededtiZANidine (Zanaflex) 4 MG tablet TAKE 1/2-1 TABLET BY MOUTH AT BEDTIME NEEDED FOR SPAMS 0 04/23/2023 Active Completed/Discontinued Medications MedicationDrug Class(es)DatesSig (Normalized)Sig (Original)acetaminophen 325 mg / HYDROcodone bitartrate 10 mg oral tablet (20 sources)Opioid AgonistStart: 12-04-2023 End: 09-38-6674nnye 1 tablet by mouth every six hours as neededStart: 08-13-2023 take 1 tablet by mouth every six hoursStart: 58-43-1588lhge 1 tablet by mouth every six hoursHYDROcodone-Acetaminophen 10-325 MG 1 tablet as needed Orally every 6 hrs for 30 days Jul, ActiveStart: 32-79-2181sbew 1 tablet by mouth every six hoursHYDROcodone-Acetaminophen 10-325 MG 1 tablet as needed Orally every 6 hrs for 30 days Jul, ActiveStart: 15-23-1273znsk 1 tablet by mouth every six hoursHYDROcodone-Acetaminophen 10-325 MG 1 tablet as needed Orally every 6 hrs for 30 days Jul, ActiveStart: 74-46-2338hhad 1 tablet by mouth every six hoursHYDROcodone-Acetaminophen 10-325 MG 1 tablet as needed Orally every 6 hrs for 30 days Jun, ActiveStart: 31-38-8223rmgc 1 tablet by mouth every six hoursHYDROcodone-Acetaminophen 10-325 MG 1 tablet as needed Orally every 6 hrs for 7 days May, ActiveStart: 78-63-7574kesa 1 tablet by mouth every six hoursHYDROcodone-Acetaminophen 10-325 MG 1 tablet as needed Orally every 6 hrs for 7 days May, ActiveStart: 40-55-1306zfzy 1 tablet by mouth every six hoursHYDROcodone-Acetaminophen 10-325 MG 1 tablet as needed Orally every 6 hrs for 7 days May, ActiveStart: 39-74-3900dolq 1 tablet by mouth every six hoursHYDROcodone-Acetaminophen 10-325 MG 1 tablet as needed Orally every 6 hrs for 7 days May, ActiveStart: 48-95-0637ADLHJrxdmkx- acetaminophen (Frederick) 10-325 MG tabletStart: 09-44-2047thnb 1 tablet by mouth every six hoursHYDROcodone-Acetaminophen 10-325 MG 1 tablet as needed Orally every 6 hrs for 7 days May, Activeatorvastatin 20 mg oral tablet (20 sources)HMG-CoA Reductase InhibitorStart: 10-23-2023 End: 21-86-7639tifs 1 tablet by mouth once dailyAtorvastatin 20 mg tablet Discontinued 0 .ROUTE .COMPLEX 90 October 23, 2023 3:27pm December 1649:20am TAKE 1 TABLET BY MOUTH EVERY DAY FOR 30 DAYSStart: 10-23-2023 End: 06-71-4130hmmg 1 tablet by mouth once dailyAtorvastatin 20 mg tablet Discontinued 20 MG PO Daily October 23, 2023 1:00am October 23, 2023 3:27pmStart: 92-61-2572qdeajavijoyl (Lipitor) 20 MG tabletcefdinir 300 mg oral capsule (4 sources)Cephalosporin AntibacterialStart: 12-22-2024 End: 32-85-2342qozk 1 capsule by mouth twice dailyCefdinir 300 mg capsule Discontinued 300 MG PO Twice daily December 22, 2024 12:00am December 24, 2024 8:18am dextromethorphan hydrobromide 30 mg / pyrilamine maleate 30 mg oral tablet (5 sources)Uncompetitive E-akjnxl-J-aspartate Receptor Antagonist, Sigma-1 AgonistStart: 45-75-7126hfzp 1 tablet by mouth every eight hoursCapron DMT 30-30 MG 1 tablet Orally every 8 hours for 7 days May, Not-TakingDULoxetine 60 mg delayed release oral capsule (20 sources)Serotonin and Norepinephrine Reuptake InhibitorStart: 02-19-2024 End: 13-32-6589jhaa 1 capsule by mouth once dailyDuloxetine 60 mg capsule,delayed release(DR/EC) Discontinued 0 .ROUTE .COMPLEX February 19, 2024 8:39am March 18, 2024 9:00am TAKE 1 CAPSULE BY MOUTH EVERY DAY FOR 90 DAYS Start: 11-12-2023 End: 72-61-3144ptfm 1 capsule by mouth once dailyDuloxetine 60 mg capsule,delayed release(DR/EC) Discontinued 60 MG PO Daily February 19, 2024 12:00am February 19, 2024 8:39amStart: 84-38-7737bizy 1 capsule by mouth every twenty-four hoursCymbalta 60 MG 1 capsule Orally Once a day for 30 days Feb, ActivelevoFLOXacin 500 mg oral tablet (2 sources)Quinolone AntimicrobialStart: 01-21-2025 End: 44-98-2631fbhm 1 tablet by mouth once dailyLevofloxacin 500 mg tablet Discontinued 500 MG PO Daily January 21, 2025 12:00am February 16, 2025 3:03pm methylPREDNISolone 4 mg oral tablet (20 sources)CorticosteroidStart: 10-15-2024 End: 95-06-2037ucgu 1 tablet by mouth onceMethylprednisolone (Medrol (Boris)) 4 mg tablets,dose pack Discontinued 0 PO per package directions October 15, 2024 1:00am December 22, 2024 8:24am PO PER PKG DIR for 6 daysStart: 12-06-2023 End: 90-47-5152Sgnbfmpsbvinpvyzfw 4 mg tablets,dose pack Discontinued 0 PO per package directions December 06, 2023 12:00am December 17, 2023 9:20am PO PER PKG DIR for 6 daysStart: 12-06-2023 End: 03-01-1441Qonvwivstejfqurzud Discontinued 0 PO per package directions December 06, 2023 12:00am November 9:20am PO PER PKG DIR for 6 daysStart: 91-37-9015yszedfEHCCWCGubjcu 4 MG as directed Orally for 6 days Sep, ActiveStart: 09-42-7054undzddOPSBJIGllwvt 4 MG as directed Orally for 6 days May, ActiveStart: 07-63-4669Dwzryi (Boris) 4 MG as directed Orally for daily dose take half with breakfast half with dinner for 6days May, Not-Taking 24 hr nicotine 0.583 mg/hr transdermal system (2 sources)Cholinergic Nicotinic AgonistStart: 03-03-2024 End: 32-21-7448lslfn 1 dose transdermal route once daily, then apply 1 dose transdermal route every twenty-four hoursNicotine (Nicoderm Cq) 14 mg/24 hr patch 24 hour Discontinued 1 PATCH TRANSDERML Daily March 03, 2024 12:00am March 18, 2024 9:00amNicotine (Nicoderm Cq) 14 mg/24 hr patch 24 hour (7 sources)Start: 03-03-2024 End: 38-39-4855wdbji 1 dose transdermal route once daily, then apply 1 dose transdermal route every twenty-four hoursNicotine (Nicoderm Cq) 14 mg/24 hr patch 24 hour Discontinued 1 PATCH TRANSDERML Daily March 02, 2024 11:00pm March 18, 2024 8:00amStart: 03-03-2024 End: 91-98-3629esqpy 1 dose transdermal route once daily, then apply 1 dose transdermal route every twenty-four hoursNicotine (Nicoderm Cq) 14 mg/24 hr patch 24 hour Discontinued 1 PATCH TRANSDERML Daily March 03, 2024 12:00am March 18, 2024 9:00amStart: 65-95-7864yadzn 1 dose transdermal route once daily, then apply 1 dose transdermal route every twenty-four hoursNicotine (Nicoderm Cq) 14 mg/24 hr patch 24 hour Active 1 PATCH TRANSDERML Daily March 032:00amomeprazole 40 mg delayed release oral capsule (19 sources)Proton Pump InhibitorStart: 07-23-2024 End: 77-93-1055lxgy 1 capsule by mouth once dailyOmeprazole 40 mg capsule,delayed release(DR/EC) Discontinued 40 MG PO Daily September 18, 2024 4:28pm January 21, 2025 9:39amStart: 07-23-2024 End: 62-77-4259rnaj 1 capsule by mouth twice dailyOmeprazole 40 mg capsule,delayed release(DR/EC) Discontinued 40 MG PO Twice daily July 23, 2024 1:00am July 23, 2024 11:55amStart: 28-60-5393cpec 1 capsule by mouth in the morningomeprazole (PriLOSEC) 40 mg capsule Indications: Gastroesophageal reflux disease, unspecified whether esophagitis present Take 1 capsule (40 mg total) by mouth in the morning. 60 capsule 05/27/2024 Activeondansetron 4 mg disintegrating oral tablet (20 sources)Serotonin-3 Receptor AntagonistStart: 40-09-4666opufixqgspk ODT (ZOFRAN ODT) 4 mg disintegrating tablet Dissolve 1 tablet (4 mg total) on tongue once. 04/27/2024 ActiveStart: 04-27-2024 End: 46-89-3427ucmj 1 tablet by mouth every eight hoursOndansetron 4 mg tablet,disintegrating Discontinued 4 MG PO Q8H December 07, 2024 4:32pm January 21, 2025 9:39amtriamcinolone acetonide 40 mg/ml injectable suspension (20 sources)CorticosteroidStart: 75-46-0741Ifboxpk-40 Nov, 40 mgStart: 94-32-8278Zjuxscf -40 mg Nov, 40 mg Problems Active Problems Problem ClassificationProblemDateDocumented DateEpisodic/ChronicAbdominal hernia (7 sources)Hiatal hernia; Translations: [Diaphragmatic hernia without obstruction or gangrene]69-24-9025WeccitvaTwtmr bronchitis (9 sources)Acute bronchitis; Translations: [Acute bronchitis due to other specified organisms]Onset: 21-46-4023XxtyxayqFigskpvl reactions (5 sources)Urticaria; Translations: [Urticaria, unspecified]21-86-8380Khlapqzd Anxiety disorders (3 sources)Anxiety disorder; Translations: [Other specified anxiety disorders] Onset: 80-83-3686JzcrktaWajrsh (20 sources)Mild intermittent asthma; Translations: [Mild intermittent asthma, uncomplicated]Onset: 28-60-7612GwnqahqKwvwsae obstructive pulmonary disease and bronchiectasis (20 sources)Chronic obstructive lung disease; Translations: [Chronic obstructive pulmonary disease, unspecified]Onset: 50-67-2790KapgnjgDqgbcxu obstructive pulmonary disease and bronchiectasis (20 sources)Bronchitis, not specified as acute or chronic; Translations: [Bronchitis]Onset: 05-26-2021 Resolved: 39-46-8501WcunuwrvLcuexuba mellitus with complications (20 sources)Hyperglycemia due to type 2 diabetes mellitus; Translations: [Type 2 diabetes mellitus with hyperglycemia]Onset: 24-26-5655XcdyhgwWsrwidon mellitus without complication (20 sources)Type 2 diabetes mellitus without complications; Translations: [Type 2 diabetes mellitus without complication]Onset: hronic Diseases of mouth; excluding dental (9 sources)Abscess of submandibular region; Translations: [Cellulitis and abscess of mouth]03-36-7289JujtyqjfSmhqhwoz of white blood cells (20 sources)Leukocytosis; Translations: [Other elevated white blood cell count] ChronicDisorders of teeth and jaw (3 sources)Jaw pain; Translations: [Jaw pain]EpisodicEsophageal disorders (20 sources)Gastroesophageal reflux disease without esophagitis; Translations: [Gastro-esophageal reflux disease without esophagitis]Onset: 05-27-2024 16-86-4685TninypdMpgwnkhcbt disorders (10 sources)Disorder of esophagus; Translations: [Disease of esophagus, unspecified]43-04-8652XguqxfroZlrjjozipcfng symptoms and ill-defined conditions (3 sources)Blood in urine; Translations: [Hematuria, unspecified]Episodic Hyperplasia of prostate (10 sources)Large prostate ; Translations: [Benign prostatic hyperplasia without lower urinary tract symptoms]87-78-3833RcsvuhqJvcvijapjdoug (11 sources)Acute lymphadenitis; Translations: [Acute lymphadenitis, unspecified]Onset: 412351-14-2504FynjvuflEzwkdcz and fatigue (3 sources)Fatigue; Translations: [Other fatigue]EpisodicNausea and vomiting (2 sources)Nausea; Translations: [Vomiting]Onset: 15-36-8033TksdvvytVyjbkxdcikd chest pain (8 sources)Chest pain, unspecified; Translations: [Chest pain]Onset: 10-05-2015 EpisodicOsteoarthritis (20 sources)Osteoarthritis of joint of left shoulder region; Translations: [Primary osteoarthritis, left shoulder]Onset: 12-12-2021 Resolved: 28-31-6031YkhuqcfQicxu connective tissue disease (20 sources)Supraspinatus tear; Translations: [...] sources)Diverticulum of bladder; Translations: [Diverticulum of bladder] 15-19-7386PljdehbDpqot diseases of bladder and urethra (2 sources)Diverticulum of bladder; Translations: [Diverticulum of bladder] 18-73-5661DrktlndUnomm gastrointestinal disorders (1 source)Other fecal abnormalitiesEpisodicOther gastrointestinal disorders (3 sources)Abnormal feces; Translations: [Other fecal abnormalities]Episodic Other gastrointestinal disorders (1 source)Dysphagia, unspecified; Translations: [Dysphagia, unspecified]Onset: 07-46-2412HozjvuddZqojj injuries and conditions due to external causes (5 sources)Contusion; Translations: [Other injury of unspecified body region, initial encounter]35-71-0200IeupmzrfImpqf injuries and conditions due to external causes (2 sources)Other injury of unspecified body region, initial encounter; Translations: [Contusion of unspecifiedsite]76-23-4886IjxaeotiGdjnx liver diseases (20 sources)High enzyme level in serum; Translations: [Abnormal levels of other serum enzymes]EpisodicOther lower respiratory disease (20 sources)Dyspnea; Translations: [Shortness of breath]EpisodicOther lower respiratory disease (2 sources)Chronic cough; Translations: [Chronic cough]07-78-8182WovjcvyyUfplt nervous system disorders (4 sources)Other chronic pain; Translations: [OTHER CHRONIC PAIN]Onset: 50-29-8850JiqtylpEngjr nervous system disorders (20 sources)Chronic pain; Translations: [Other chronic pain]ChronicOther non- traumatic joint disorders (20 sources)Derangement of left shoulder joint; Translations: [Other specific joint derangements of left shoulder, not elsewhere classified]Onset: 03-25-2023 03-80-2453GupoozfJfymh non-traumatic joint disorders (4 sources)Other specific joint derangements of left shoulder, not elsewhere classified; Translations: [OTH SPEC JOINT DERANG LT SHLDR NEC]Onset: 02-02-2022 ChronicOther non-traumatic joint disorders (7 sources)Rotator cuff arthropathy of left shoulder; Translations: [Other specific arthropathies, not elsewhere classified, left shoulder]Onset: 887035-27-0091JudmmuaWtkhi non-traumatic joint disorders (8 sources)Pain in left shoulder; Translations: [PAIN IN LEFT SHOULDER]Onset: 12-12-2021 Resolved: 61-07-2869TarvuvsbValsb non-traumatic joint disorders (9 sources)Pain in right shoulderEpisodicOther non-traumatic joint disorders (3 sources)Pain in unspecified joint; Translations: [Pain in joint, site unspecified]39-99-8166ZjzifjqrFoxlv non-traumatic joint disorders (10 sources)Hip pain; Translations: [Pain in right hip]70-15-6338KmxdfzliStkuh non-traumatic joint disorders (2 sources)Pain in right hip; Translations: [Pain in joint, pelvic region and thigh]93-47-7043CqtchjzuRwdvw nutritional; endocrine; and metabolic disorders (20 sources)Body mass index 40+ - severely obese; Translations: [Body mass index (BMI) 45.0-49.9, adult]ChronicOther nutritional; endocrine; and metabolic disorders (3 sources)Obese class I; Translations: [Body mass index (BMI) 32.0-32.9, adult] ChronicOther nutritional; endocrine; and metabolic disorders (3 sources)Obesity; Translations: [Obesity, unspecified]Onset: 76-75-5578Dckjbjm Other screening for suspected conditions (not mental disorders or infectious disease) (8 sources)Barium swallow abnormal; Translations: [Abnormal findings on diagnostic imaging of other parts of digestive tract]20-32-4461KbkpygpiXumkl skin disorders (3 sources)Localized swelling, mass and lump, head; Translations: [Swelling, mass, or lump in head and neck]19-33-6440MkvjxnrkXbsjl upper respiratory disease (20 sources)Chronic rhinitis; Translations: [Chronic rhinitis]ChronicOther upper respiratory disease (3 sources)Seasonal allergic rhinitis; Translations: [Other seasonal allergic rhinitis]ChronicOtitis media and related conditions (3 sources)Otitis media; Translations: [Otitis media, unspecified, unspecified ear]EpisodicResidual codes; unclassified (20 sources)H/O: asbestos exposure; Translations: [Contact with and (suspected) exposure to asbestos]Onset: 79-21-2425FbidupznEjqrcxyuf and history of mental health and substance abuse codes (1 source)Ex-smoker; Translations: [Personal history of nicotine dependence] 90-93-9851UnzdokpbLslvzftvlnu; intervertebral disc disorders; other back problems (20 sources)Degeneration of lumbar intervertebral disc; Translations: [Other intervertebral disc degeneration, lumbar region]Onset: 99-42-4344MtnjblbIrtwxjy and strains (2 sources)Superior glenoid labrum lesion of right shoulder, subsequent encounterEpisodicSubstance-related disorders (20 sources)Smoker; Translations: [Nicotine dependence, unspecified, uncomplicated]Onset: 02-06-2022 Resolved: 24-71-0785TwrqwzwYsljorbxpzhl (1 source)postive cologuardOnset: 78-26-3618Jslyttlwddho (1 source)Emotional state findingOnset: 05-27-2024 Past or Other Problems Problem ClassificationProblemDateDocumented DateEpisodic/ChronicAbdominal pain (20 sources)Right upper quadrant pain; Translations: [Right upper quadrant pain] Onset: 04-54-3966BccjbuezTpaudjf tract disease (20 sources)Chronic cholecystitis due to gallbladder calculus with obstruction; Translations: [Calculus of gallbladder with chronic cholecystitis with obstruction]Onset: 280824-93-3648XqnfmupuGvkszdfak and vision defects (4 sources)Other visual disturbances; Translations: [OTHER VISUAL DISTURBANCES] Onset: 29-57-7370DnbnvyyiTvyaqvtc of urinary tract (1 source)Personal history of urinary calculi; Translations: [PERSONAL HISTORY OF URINARY CALCULI]Onset: 30-65-7788XouzenopMskorwnqih and other anemia (3 sources)Iron deficiency anemia; Translations: [Iron deficiency anemia, unspecified]Onset: 88-43-1848WgskftuyXemornxa mellitus without complication (3 sources)Hyperglycemia; Translations: [Hyperglycemia, unspecified]Onset: 37-46-4126UjywhuwhYadpgzjudtycbeyf hemorrhage (20 sources)Rectal hemorrhage; Translations: [Hemorrhage of anus and rectum] Onset: 294363-80-6666FuopzxavHpbkdxthlcbd breast conditions (3 sources)Pain of breast; Translations: [Mastodynia]Onset: 31-25-8955Zbivamhg Other aftercare (1 source)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; Translations: [OTH RESIDENTIAL CURRENT DRUG THERAPY]Onset: 31-04-2880IrcdgdkwEzzjr connective tissue disease (1 source)Unspecified rotator cuff tear or rupture of left shoulder, not specified as traumaticOnset: 02-06-2022 Resolved: 98-37-6785ZzkhismrWegvi connective tissue disease (1 source)Complete rotator cuff tear or rupture of left shoulder, not specified as traumaticOnset: 12-12-2021 Resolved: 18-60-6539TxmqzeraPwvih connective tissue disease (1 source)Unspecified disorder of synovium and tendon, left shoulderOnset: 12-12-2021 Resolved: 99-12-5713TqlogupfKekxf connective tissue disease (7 sources)Rotator cuff impingement syndrome; Translations: [Impingement syndrome of right shoulder]Onset: 301552-79-2030AgzkajcfFvekr connective tissue disease (7 sources)Partial thickness rotator cuff tear; Translations: [Incomplete rotator cuff tear or rupture of leftshoulder, not specified as traumatic]Onset: 845514-49-6439NryydmnqCgemd diseases of kidney and ureters (5 sources)Cyst of kidney; Translations: [Cyst of kidney, acquired]Onset: 669914-58-5646YycsdougNcvqf ear and sense organ disorders (3 sources)Impacted cerumen; Translations: [Impacted cerumen]Onset: 03-13-2018 EpisodicOther gastrointestinal disorders (20 sources)Dysphagia; Translations: [Dysphagia, unspecified]88-52-1607Quvctqmg Other gastrointestinal disorders (7 sources)Stool DNA-based colorectal cancer screening positive; Translations: [Other fecal abnormalities]Onset: 946917-16-0832YqaqywicHcipk gastrointestinal disorders (9 sources)Esophageal dysphagia; Translations: [Other dysphagia]Onset: 910775-03-2879TaeeqrqpMmyjr liver diseases (12 sources)Liver mass; Translations: [Hepatomegaly, not elsewhere classified] Onset: 331734-48-1556BaqsgxjoIpmhe non-traumatic joint disorders (17 sources)Joint pain; Translations: [Pain in unspecified joint]Onset: 203020-91-5013CcxvaiggAqhir skin disorders (14 sources)Mass of submandibular region; Translations: [Localized swelling, mass and lump, head]Onset: 237253-16-7725DotynkukJjzok skin disorders (7 sources)Mass of neck; Translations: [Localized swelling, mass and lump, neck] Onset: 373783-64-1864AjrzzpmsQvgmnfnwh (except that caused by tuberculosis or sexually transmitted disease) (3 sources)Pneumonia; Translations: [Pneumonia, unspecified organism]Onset: 80-38-5460LmdpjzsjFppnzpjnsjx; intervertebral disc disorders; other back problems (20 sources)Radiculopathy, lumbar region; Translations: [Dorsalgia, unspecified] Onset: 38-58-1756YlhsgukqKhebsws (3 sources)Syncope and collapse; Translations: [Syncope and collapse]Onset: 48-85-5175Cqamoxsc Results Test NameValueInterpretationReference RangeFacilityLaboratory - Chemistry and Chemistry - challengeon 89-13-1509Knapeqh [Moles/Vol]2.6 mmol/LCritically high 0.4-2.0[facility] HospitalComment on above:RESULTS CALLED TO ROSEMARY SRINIVASAN RN at 0220Basophils Auto (Bld) [#/Vol]on 34-72-4480Oabocpsyb (Bld) [#/Vol]Automated basophil count0.0-0.1[facility] Basophils (Bld) [#/Vol]0.0 10 3/uL0.0-0.1F[facility] Basophils/100 WBC Auto (Bld)on 73-36-1767Zvkwjpgph/100 WBC (Bld)Automated basophil %0.2-2.0[facility] HospitalBasophils/100 WBC (Bld)0.6 % 0.2-2.0[facility] HospitalBasophils/100 WBC Manual cnt (Bld)on 51-84-4261Iibkagiyu/100 WBC (Bld)Basophils/100 leukocytes in Blood by Manual countLow0.2-2.0[facility] HospitalBasophils/100 WBC (Bld)0.0 %Low 0.2-2.0[facility] HospitalEosinophils/100 WBC Auto (Bld)on 01-09-5360Undhbgcmgfq/100 WBC (Bld)Automated eosinophil %0.9-7.0[facility] HospitalEosinophils/100 WBC (Bld)2.0 %0.9-7.0[facility] HospitalEosinophils/100 WBC Manual cnt (Bld)on 08-69-1474Kyafaljbpth/100 WBC (Bld)Eosinophils/100 leukocytes in Blood by Manual countLow0.9-7.0[facility] HospitalEosinophils/100 WBC (Bld)0.0 %Low0.9-7.0[facility] HospitalErythrocyte distribution width Auto (RBC) [Ratio]on 80-70-9098Fgohppzppcz distribution width (RBC) [Ratio]13.5 %11.0-15.0[facility] HospitalEstimated glomerular filtration rate (GFR) non- Americanon 61-53-6758QMJ/1.73 sq M.predicted among non-blacks MDRD (S/P/Bld) [Vol rate/Area]Estimated glomerular filtration rate (GFR) non- Low>=60 mL/min/1.73m 2FMedina HospitalGFR/1.73 sq M.predicted among non-blacks MDRD (S/P/Bld) [Vol rate/Area]59 mL/min/{1.73_m2}Low>=60 mL/min/1.73m [address] [place], [place] [address]Globulin Calc (S) [Mass/Vol]on 31-57-4154Vllgyovf (S) [Mass/Vol]Serum globulin measurement by calculation (mass/volume)[facility] HospitalGlobulin (S) [Mass/Vol]3.6 g/dL [facility] HospitalGlucose mean value [Mass/volume] in Blood Estimated from glycated hemoglobinon 87-16-6813Fkttzii glucose Estimated from glycated hemoglobin (Bld) [Mass/Vol]Glucose mean value [Mass/volume] in Blood Estimated from glycated hemoglobinNationwide Children'S HospitalAverage glucose Estimated from glycated hemoglobin (Bld) [Mass/Vol]192 mg/dLNationwide Children'S HospitalHematocrit Auto (Bld) [Volume fraction]on 12-22-2024 Hematocrit (Bld) [Volume fraction]56.3 %High42.0-54.0[facility] HospitalHemoglobin A1c percentageon 76-30-3724UoV8s (Bld) [Mass fraction] Hemoglobin A1c percentageHigh4.5-6.2FMedina HospitalComment on above:ADA RECOMMENDED LIMIT 4.0 - 6.0ADA THERAPEUTIC TARGET < 7.0ACTION SUGGESTED> 7.0HbA1c (Bld) [Mass fraction]8.3 %High4.5-6.2FMedina HospitalComment on above:ADA RECOMMENDED LIMIT 4.0 - 6.0ADA THERAPEUTIC TARGET < 7.0ACTION SUGGESTED> 7.0Hemoglobin [Mass/volume] in Bloodon 12-22-2024 Hemoglobin (Bld) [Mass/Vol]18.9 g/rOGqir53.0-18.0[facility] HospitalLaboratory - Chemistry and Chemistry - challengeon 46-17-7656Xlhpzvx [Mass/Vol]4.3 g/dL3.4-5.0[facility] HospitalALP [Catalytic activity/Vol]121 U/VIohz96-947BrvimmquoNationwide Children'S HospitalALT [Catalytic activity/Vol]46 U/P45-70FpfmksycgNationwide Children'S HospitalAST [Catalytic activity/Vol]17 U/O73-82OneqdsgluNationwide Children'S HospitalBilirubin [Mass/Vol]0.4 mg/dL0.2-1.0[facility] HospitalCalcium [Mass/Vol]9.7 mg/dL 8.5-10.1FMedina HospitalChloride [Moles/Vol]99 mmol/L98-107 [facility] HospitalCO2 [Moles/Vol]21.7 mmol/L21.0-32.0[facility] HospitalCreatinine [Mass/Vol]1.24 mg/dL0.70-1.30[facility] HospitalGFR/1.73 sq M.predicted MDRD (S/P/Bld) [Vol rate/Area] mL/min/{1.73_m2}>=60 mL/min/1.73m 2FMedina HospitalGlucose [Mass/Vol]278 mg/dFTvld57-559TypvutykdNationwide Children'S HospitalLactate [Moles/Vol]2.3 mmol/LCritically high0.4-2.0[facility] Comment on above:RESULTS CALLED TO KATRINA CABALLERO RN at 0009Lipase [Catalytic activity/Vol]31.0 U/L16.0-77.0[facility] HospitalPotassium [Moles/Vol]4.6 mmol/L3.5-5.1FMedina HospitalProtein [Mass/Vol] 7.9 g/dL6.4-8.2FUK Healthcareodium [Moles/Vol]133 mmol/LLow 136-145[facility] HospitalUrea nitrogen [Mass/Vol]15.0 mg/dL 7.0-18.0[facility] HospitalUrea nitrogen/Creatinine [Mass ratio] 12.1 mg/mgNationwide Children'S HospitalTSH Qn1.532 m[IU]/L0.358-3.740 [facility] HospitalLaboratory - Hematology and Cell countson 61-62-2461Ymunezpltqw/100 WBC (Bld)1.0 %Low20.5-60.0[facility] HospitalMonocytes/100 WBC (Bld)7.0 %1.7-12.0[facility] Immature granulocytes/100 WBC (Bld)0.2 %0.0-0.5F[facility] Leukocytes [#/volume] corrected for nucleated erythrocytes in Blood by Automated counon 92-52-1265SXR corrected for nucl RBC Auto (Bld) [#/Vol]14.4 10 3/uLHigh 4.0-11.0[facility] HospitalLymphocytes Auto (Bld) [#/Vol]on 23-70-5849Jtcfyupimni (Bld) [#/Vol]Lymphocytes [#/volume] in Blood by Automated count1.2-3.8[facility] HospitalLymphocytes (Bld) [#/Vol]2.1 10 3/uL1.2-3.8[facility] HospitalLymphocytes/100 WBC Auto (Bld)on 79-73-5615Nbxfvhqrgyi/100 WBC (Bld)Lymphocytes/100 leukocytes in Blood by Automated count20.5-60.0[facility] HospitalLymphocytes/100 WBC (Bld)31.7 %20.5-60.0[facility] HospitalMCH Auto (RBC) [Entitic mass]on 22-14-8172WMG (RBC) [Entitic mass]29.7 pg25.9-34.0[facility] HospitalMCHC Auto (RBC) [Mass/Vol]on 45-70-2765EXVO (RBC) [Mass/Vol]33.6 g/dL29.9-35.2FMedina HospitalMCV Auto (RBC) [Entitic vol]on 99-78-1506DMW (RBC) [Entitic vol]88.5 fL80.0-94.0[facility] HospitalMicroalbumin [Mass/volume] in Urineon 44-98-6664Fssxjpt DL <= 20 mg/L (U) [Mass/Vol]Microalbumin [Mass/volume] in Urine<=30.0[facility] HospitalAlbumin DL <= 20 mg/L (U) [Mass/Vol]2.0 mg/dL<=30.0[facility] HospitalMonocytes Auto (Bld) [#/Vol]on 49-87-9403Dwllclttd (Bld) [#/Vol] Automated blood monocyte count0.3-0.8[facility] HospitalMonocytes (Bld) [#/Vol]0.7 10 3/uL0.3-0.8[facility] HospitalMonocytes/100 WBC Auto (Bld)on 62-70-7167Rdtdjxygp/100 WBC (Bld)Automated monocyte %1.7-12.0 [facility] HospitalMonocytes/100 WBC (Bld)10.7 %1.7-12.0[facility] HospitalNeutrophils Auto (Bld) [#/Vol]on 29-82-4982Fsuwihxyhtx (Bld) [#/Vol]Neutrophils [#/volume] in Blood by Automated count1.4-6.5FMedina HospitalNeutrophils (Bld) [#/Vol]3.6 10 3/uL1.4-6.5FMedina HospitalNeutrophils/100 WBC Auto (Bld)on 12-22-2024 Neutrophils/100 WBC (Bld)Automated neutrophil %43.0-75.0[facility] HospitalNeutrophils/100 WBC (Bld)54.8 %43.0-75.0[facility] HospitalNo Panel Informationon 98-39-8416Rraaqlvn Basophils (Manual)0.00 10 3/uL 0.00-0.10[facility] HospitalEosinophils # (Manual)0.00 10 3/uL 0.00-0.70[facility] HospitalLymphocytes # (Manual)0.14 10 3/uLLow 1.20-3.80[facility] HospitalMonocytes # (Manual)1.00 10 3/uLHigh 0.30-0.80[facility] Centeregmented Neutrophils # (Manual)13.24 10 3/uLHigh1.4-6.5FMedina HospitalTroponin I High Sensitivity <4.0 pg/mLLow4.0-76.1FMedina HospitalComment on above:CUT-OFF POINTS HAVE BEEN ESTABLISHED BASED [...] DIAGNOSTIC AND CLINICAL INFORMATION.Eosinophils # (Auto)0.1 10 3/uL0.0-0.7FMedina HospitalImmature Granulocyte # (Auto)0.01 10 3/uL0.00-0.03[facility] HospitalProstate Specific Antigen Screen0.89 ng/mL<=4.00[facility] HospitalUrine Random Oaamoiopig83.28 mg/dL20.00-300.00[facility] HospitalPlatelet mean volume Auto (Bld) [Entitic vol]on 88-33-5639Rvbveuyj mean volume (Bld) [Entitic vol]9.4 fLLow9.5-13.5FMedina HospitalPlatelets Auto (Bld) [#/Vol]on 81-74-6797Tepqsuwbe (Bld) [#/Vol]319 10 3/bX394-220AjhzwfweyNationwide Children'S HospitalRBC Auto (Bld) [#/Vol] on 88-62-5099APZ (Bld) [#/Vol]6.36 10 6/uLHigh4.70-6.10[facility] Centeregmented neutrophils/100 WBC Manual cnt (Bld)on 12-22-2024 Segmented neutrophils/100 WBC (Bld)Manual blood segmented neutrophils/100 gjwvfmanmsKyrh51.0-75.0[facility] Centeregmented neutrophils/100 WBC (Bld)92.0 %High43.0-75.0[facility] Serum or plasma albumin/globulin mass ratioon 14-09-0555Wonwifz/Globulin [Mass ratio]Serum or plasma albumin/globulin mass ratioNationwide Children'S HospitalAlbumin/Globulin [Mass ratio]1.2 {ratio}[facility] Serum or plasma anion gap determinationon 34-17-1126Azuwm gap [Moles/Vol]Serum or plasma anion gap determinationNationwide Children'S HospitalAnion gap [Moles/Vol]16.9 mmol/LFMedina HospitalUrine microalbumin/creatinine mass ratioon 37-56-1207Mmxtzus/Creatinine DL <= 20 mg/L (U) [Mass ratio]Urine microalbumin/creatinine mass ratio0.0-29.9[facility] HospitalComment on above:NO MICROALBUMINURIA 0-29 MG/GCLINICAL MICROALBUMINURIA 30-300 MG/GMACROALBUMINURIA >300 MG/GAlbumin/Creatinine DL <= 20 mg/L (U) [Mass ratio]25.2 mg/g0.0-29.9[facility] Comment on above:NO MICROALBUMINURIA 0-29 MG/GCLINICAL MICROALBUMINURIA 30-300 MG/GMACROALBUMINURIA >300 MG/GCHEMISTRYOrdered By: Sonia Brandt on 38-27-5191QgJ5q (Bld) [Mass fraction]9.5 %High<=5.9%[facility] [place] UvluSczmJPHqzT5ovk 50-48-6818LdD0g (Bld) [Mass fraction]9.5 %High<=5.9[facility] Comment on above:Performed By: #### [id number] #### [facility] [address], [place] [address]Novvksckc Auto (Bld) [#/Vol]on 02-18-2491Mqqcjpbly (Bld) [#/Vol]Automated basophil count0.0-0.1[facility] Basophils/100 WBC Auto (Bld)on 36-13-1263Fytphcvgu/100 WBC (Bld)Automated basophil %0.2-2.0[facility] HospitalEosinophils/100 WBC Auto (Bld) on 83-74-6053Kfwegorpqen/100 WBC (Bld)Automated eosinophil %0.9-7.0[facility] HospitalErythrocyte distribution width Auto (RBC) [Ratio]on 37-55-8064Lyifhvivttb distribution width (RBC) [Ratio]Erythrocyte distribution width [Ratio] by Automated count11.0-15.0[facility] Estimated glomerular filtration rate (GFR) non- Americanon 10-11-2024 GFR/1.73 sq M.predicted among non-blacks MDRD (S/P/Bld) [Vol rate/Area]Estimated glomerular filtration rate (GFR) non->=60 mL/min/1.73m 2 [facility] HospitalGlobulin Calc (S) [Mass/Vol]on 10-11-2024 Globulin (S) [Mass/Vol]Serum globulin measurement by calculation (mass/volume) [facility] HospitalHematocrit Auto (Bld) [Volume fraction]on 30-92-8216Qfhirudyuo (Bld) [Volume fraction]Hematocrit [Volume Fraction] of Blood by Automated count42.0-54.0[facility] HospitalHemoglobin [Mass/volume] in Bloodon 59-99-6256Ngxhjfqtfr (Bld) [Mass/Vol]Hemoglobin [Mass/volume] in Blood14.0-18.0[facility] HospitalLaboratory - Chemistry and Chemistry - challengeon 81-05-4223Whrieou [Mass/Vol]3.5 g/dL 3.4-5.0[facility] HospitalALP [Catalytic activity/Vol]102 U/L 46-116[facility] HospitalALT [Catalytic activity/Vol]39 U/L16-63 [facility] HospitalAST [Catalytic activity/Vol]13 U/OHdh57-02 [facility] HospitalBilirubin [Mass/Vol]0.2 mg/dL0.2-1.0[facility] HospitalCalcium [Mass/Vol]9.1 mg/dL8.5-10.1FMedina HospitalChloride [Moles/Vol]102 mmol/L32-660TqgkbbmogNationwide Children'S HospitalCO2 [Moles/Vol]28.4 mmol/L21.0-32.0[facility] Creatinine [Mass/Vol]0.97 mg/dL0.70-1.30[facility] GFR/1.73 sq M.predicted MDRD (S/P/Bld) [Vol rate/Area]mL/min/{1.73_m2}>=60 mL/min/1.73m 2FMedina HospitalGlucose [Mass/Vol]317 mg/dLHigh 74-106[facility] HospitalPotassium [Moles/Vol]4.3 mmol/L3.5-5.1 [facility] HospitalProtein [Mass/Vol]6.7 g/dL6.4-8.2FUK Healthcareodium [Moles/Vol]136 mmol/V633-043NfxyqbmfrNationwide Children'S HospitalUrea nitrogen [Mass/Vol]14.0 mg/dL7.0-18.0[facility] HospitalUrea nitrogen/Creatinine [Mass ratio]14.4 mg/mgNationwide Children'S HospitalLaboratory - Hematology and Cell countson 42-12-1529Cgbzzhqu granulocytes/100 WBC (Bld)0.2 %0.0-0.5[facility] Leukocytes [#/volume] corrected for nucleated erythrocytes in Blood by Automated counon 48-22-2139ZUC corrected for nucl RBC Auto (Bld) [#/Vol]Leukocytes [#/volume] corrected for nucleated erythrocytes in Blood by Automated coun 4.0-11.0[facility] HospitalLymphocytes Auto (Bld) [#/Vol]on 16-96-3102Qdntovtgfej (Bld) [#/Vol]Lymphocytes [#/volume] in Blood by Automated count1.2-3.8[facility] HospitalLymphocytes/100 WBC Auto (Bld)on 00-93-6592Kwbsyaimont/100 WBC (Bld)Lymphocytes/100 leukocytes in Blood by Automated count20.5-60.0[facility]ullH Auto (RBC) [Entitic mass]on 26-84-7508GLR (RBC) [Entitic mass]MCH [Entitic mass] by Automated count 25.9-34.0[facility] HospitalMCHC Auto (RBC) [Mass/Vol]on 13-25-7992ANJA (RBC) [Mass/Vol]MCHC [Mass/volume] by Automated count29.9-35.2 [facility] HospitalMCV Auto (RBC) [Entitic vol]on 39-34-6334JRY (RBC) [Entitic vol]MCV [Entitic volume] by Automated count80.0-94.0[facility] HospitalMonocytes Auto (Bld) [#/Vol]on 62-59-6904Byzbemaqn (Bld) [#/Vol]Automated blood monocyte count0.3-0.8[facility] Monocytes/100 WBC Auto (Bld)on 00-99-2234Kciusjrcq/100 WBC (Bld)Automated monocyte %1.7-12.0[facility] HospitalNeutrophils Auto (Bld) [#/Vol]on 90-24-1975Ifrkzutbect (Bld) [#/Vol]Neutrophils [#/volume] in Blood by Automated count1.4-6.5FMedina HospitalNeutrophils/100 WBC Auto (Bld)on 55-70-6897Uyjlhukqtru/100 WBC (Bld)Automated neutrophil %43.0-75.0 [facility] HospitalNo Panel Informationon 15-37-2373Iuwancepyyk # (Auto)0.2 10 3/uL0.0-0.7FMedina HospitalImmature Granulocyte # (Auto)0.02 10 3/uL0.00-0.03[facility] HospitalPlatelet mean volume Auto (Bld) [Entitic vol]on 56-09-7692Euzvnemp mean volume (Bld) [Entitic vol] Platelet mean volume [Entitic volume] in Blood by Automated countLow9.5-13.5 [facility] HospitalPlatelets Auto (Bld) [#/Vol]on 10-11-2024 Platelets (Bld) [#/Vol]Platelets [#/volume] in Blood by Automated -932 [facility] HospitalRBC Auto (Bld) [#/Vol]on 52-54-0120OIP (Bld) [#/Vol]Erythrocytes [#/volume] in Blood by Automated count4.70-6.10[facility] Centererum or plasma albumin/globulin mass ratioon 10-11-2024 Albumin/Globulin [Mass ratio]Serum or plasma albumin/globulin mass ratio [facility] Centererum or plasma anion gap determinationon 09-56-7120Hvmyp gap [Moles/Vol]Serum or plasma anion gap determinationNationwide Children'S HospitalEstimated glomerular filtration rate (GFR) non- Americanon 99-05-3913HNH/1.73 sq M.predicted among non-blacks MDRD (S/P/Bld) [Vol rate/Area]Estimated glomerular filtration rate (GFR) non- >=60 mL/min/1.73m 2FMedina HospitalLaboratory - Chemistry and Chemistry - challengeon 04-31-2242Rrqaehylkz [Mass/Vol]1.02 mg/dL0.70-1.30 [facility] HospitalGFR/1.73 sq M.predicted MDRD (S/P/Bld) [Vol rate/Area]mL/min/{1.73_m2}>=60 mL/min/1.73m 2F[facility] EGDon 44-28-6795DakUdqtzeGrand Lake Joint Township District Memorial HospitalNo Panel InformationOrdered By: Rosalia Shea on 46-34-7656GavAiceknGrand Lake Joint Township District Memorial HospitalNo Panel InformationOrdered By: Bill Henry on 41-85-1498Jilbegsusweee Pathology TestSee commentNationwide Children'S HospitalComment on above:See report. Scanned copy available in EMR.No Panel Informationon 29-04-1948Oztcvtsohckf pylori Urease TestNegative [facility] HospitalPathology Request for Lab Corpon 06-03-2024 Pathology Request for Lab CorpNormalThe [facility] Physician GroupComment on above:Order Comment: PATHOLOGY GI SPECIMENResult Comment: See report. Scanned copy available in EMR. PERFORMED BY: [address] [place] [id number] PATHOLOGIST [employer] JON PONCE M.D.Performed By: #### PATH TO [facility] #### [facility] [address] [id number] USACNPNon [id number] ([id number]) NICHOLAS ZIEGLER ([id number]) 1960 M Date Time Provider Department 05/14/24 AMEYA TRAN [id number] During your visit today, we recorded the following information about you: Keily Martines 05/14/2024 1:11 PM Signed Referral was sent from [facility] for new consult with Dr Tran Please see below and advise Vivian Siddiqui 05/15/2024 11:54 AM Addendum Consult from Dr. Jeremy Magallanes (Internal Medicine) [facility] Referral received [...] Reviewed Reason for Visit: New Patient [172] Dynamicist - Other [3602] Problem List As Of Date: 05/14/2024 (None) Encounter Status:Closed by VIVIAN SIDDIQUI on 05/21/24[facility] Panel InformationOrdered By: Radiologist Radiology on 32-43-4912[facility] Work Phone: No Panel Informationon 36-08-9872Jusszkwfr Study observation (narrative)NOMS HealthcareRF videography Hypopharynx and Esophagus Views for swallowing function W speech and W barium contrast [place] 70-[place] [address] Fluoroscopy Report Signed Patient: NICHOLAS ZIEGLER MR#: [id number] : 1960 Acct:[id number] Age/Sex: 63 / M ADM Date: 04/08/24 Loc: [place] Attending Dr: Malathi Sanchez M.D. Ordering Physician: Malathi Sanchez M.D. Date of Service: 04/08/24 Procedure(s): FL barium swallow Accession Number(s): [id number] cc: Jeremy Magallanes M.D.; Malathi Sanchez M.D. [place] [id number] Patient Name: NICHOLAS ZIEGLER MRN: [id number] date: 1960 Sex: M [place]igned Patient [place]: [place] Location[place] Accession/Order Number: [id number] Exam Date: 04/08/2024 08:45 Report Date: 04/08/2024 [...] Signed By: 04/08/24 1100 DD/ 1057 TD/TT: Hog Counter:TBHRadiology, Radiologist, - 04/08/2024 [place] [address] Fluoroscopy Report Signed Patient: NICHOLAS ZIEGLER MR#: [id number] : 1960 Acct:[id number] Age/Sex: 63 / M ADM Date: 04/08/24 Loc: [place] Attending Dr: Malathi Sanchez M.D. Ordering Physician: Malathi Sanchez M.D. Date of Service: 04/08/24 Procedure(s): FL barium swallow Accession Number(s): [id number] cc: Jeremy Magallanes M.D.; Malathi Sanchez M.D. [address] [place] [id number] Patient Name: NICHOLAS ZIEGLER MRN: [id number] date: 1960 Sex: M Assigned Patient [place]: [place] Current [place] Location[place] Accession/Order Number: [id number] Exam Date: 04/08/2024 08:45 Report Date: 04/08/2024 [...] Signed By: 04/08/24 1100 DD/ 1057 TD/TT: Hog Counter: REMINGTON Soria CINERADIOGRAPHYon 67-05[place], [place] [address] Fluoroscopy Report Signed Patient: NICHOLAS ZIEGLER MR#: [id number] : 1960 Acct:[id number] Age/Sex: 63 / M ADM Date: 04/08/24 Loc: [place] Attending Dr: Malathi Sanchez M.D. Ordering Physician: Malathi Sanchez M.D. Date of Service: 04/08/24 Procedure(s): FL cineradiography Accession Number(s): [id number] cc: Jeremy Magallanes M.D.; Malathi Sanchez M.D. [address] [place] [address] Patient Name: NICHOLAS ZIEGLER MRN: [id number] date: 1960 Sex: M Assigned Patient [place]: [place] Accession/Order Number: [id number] Exam Date: 04/08/2024 08:45 Report Date: 04/08/2024 [...] Signed By: 04/08/24 1100 DD/ 1057 TD/TT: Hog Counter:SEYMOURHRadiology, Radiologist, - 04/08/2024 [place] [address] Fluoroscopy Report Signed Patient: NICHOLAS ZIEGLER MR#: [id number] : 1960 Acct:[id number] Age/Sex: 63 / M ADM Date: 04/08/24 Loc: [place] Attending Dr: Malathi Sanchez M.D. Ordering Physician: Malathi Sanchez M.D. Date of Service: 04/08/24 Procedure(s): FL cineradiography Accession Number(s): [id number] cc: Jeremy Magallanes M.D.; Malathi Sanchez M.D. [address] [place] [address] Patient Name: NICHOLAS ZIEGLER MRN: [id number] date: 1960 Sex: M Assigned Patient Location: [place] Current [place] Location[place] Accession/Order Number: [id number] Exam Date: 04/08/2024 08:45 Report Date: 04/08/2024 [...] Signed By: 04/08/24 1100 DD/ 1057 TD/TT: Hog Counter: REMINGTON [facility] SouthwoodsBasophils Auto (Bld) [#/Vol]on 16-91-2475Nnyqkdlkk (Bld) [#/Vol] 0.1 10 3/uL0.0-0.1FMedina HospitalBasophils/100 WBC Auto (Bld) on 79-61-5873Bdocirgdz/100 WBC (Bld)0.5 %0.2-2.0[facility] HospitalEosinophils/100 WBC Auto (Bld)on 99-46-0920Auaozerjovx/100 WBC (Bld)2.5 % 0.9-7.0[facility] HospitalErythrocyte distribution width Auto (RBC) [Ratio]on 73-96-7835Efqnyzhwjoy distribution width (RBC) [Ratio]13.5 % 11.0-15.0[facility] HospitalEstimated glomerular filtration rate (GFR) non- Americanon 71-40-1642UKJ/1.73 sq M.predicted among non-blacks MDRD (S/P/Bld) [Vol rate/Area]mL/min/{1.73_m2}>=60[facility] HospitalHematocrit Auto (Bld) [Volume fraction]on 32-75-8996Hgrqlxqwks (Bld) [Volume fraction]47.1 %42.0-54.0[facility] HospitalHemoglobin [Mass/volume] in Bloodon 44-97-6884Bckhbtgzyk (Bld) [Mass/Vol]15.5 g/dL14.0-18.0 [facility] HospitalLaboratory - Chemistry and Chemistry - challengeon 42-08-2988Rrzmejs [Mass/Vol]8.9 mg/dL8.5-10.1FMedina HospitalChloride [Moles/Vol]98 mmol/H05-066QpdvpibrkNationwide Children'S HospitalCO2 [Moles/Vol]28.1 mmol/L21.0-32.0[facility] Creatinine [Mass/Vol]0.86 mg/dL0.70-1.30[facility] GFR/1.73 sq M.predicted MDRD (S/P/Bld) [Vol rate/Area]mL/min/{1.73_m2}>=60 [facility] HospitalGlucose [Mass/Vol]237 mg/fMHnzc34-985OqirvdovjNationwide Children'S HospitalLactate [Moles/Vol]1.3 mmol/L0.4-2.0[facility] HospitalPotassium [Moles/Vol]4.4 mmol/L3.5-5.1FUK Healthcareodium [Moles/Vol]130 mmol/HAlf117-870YizqrmoigNationwide Children'S Hospital Urea nitrogen [Mass/Vol]21.0 mg/dLHigh7.0-18.0[facility] Urea nitrogen/Creatinine [Mass ratio]24.4 mg/mgNationwide Children'S Hospital Laboratory - Hematology and Cell countson 03-17-1690Vlirpmbn granulocytes/100 WBC (Bld)0.3 %0.0-0.5FMedina HospitalLeukocytes [#/volume] corrected for nucleated erythrocytes in Blood by Automated counon 51-18-9509HDN corrected for nucl RBC Auto (Bld) [#/Vol]9.3 10 3/uL4.0-11.0[facility] HospitalLymphocytes Auto (Bld) [#/Vol]on 47-32-0585Apnzyuzimid (Bld) [#/Vol]2.4 10 3/uL1.2-3.8[facility] HospitalLymphocytes/100 WBC Auto (Bld)on 30-67-5354Kgijgptxsod/100 WBC (Bld)25.5 %20.5-60.0[facility]ullH Auto (RBC) [Entitic mass]on 43-65-4614GOG (RBC) [Entitic mass]29.1 pg25.9-34.0[facility] HospitalMCHC Auto (RBC) [Mass/Vol]on 29-34-5245XDHI (RBC) [Mass/Vol]32.9 g/dL29.9-35.2FMedina HospitalMCV Auto (RBC) [Entitic vol]on 96-13-0380NBQ (RBC) [Entitic vol] 88.5 fL80.0-94.0[facility] HospitalMonocytes Auto (Bld) [#/Vol]on 73-73-3983Zoxbhiupc (Bld) [#/Vol]1.1 10 3/uLHigh0.3-0.8[facility] HospitalMonocytes/100 WBC Auto (Bld)on 81-75-6493Hhivrlluz/100 WBC (Bld) 12.0 %1.7-12.0[facility] HospitalNeutrophils Auto (Bld) [#/Vol]on 81-24-6311Ezsxrbnhjpa (Bld) [#/Vol]5.5 10 3/uL1.4-6.5FMedina HospitalNeutrophils/100 WBC Auto (Bld)on 95-49-3270Iyfuoyhmphe/100 WBC (Bld)59.2 % 43.0-75.0[facility] HospitalNo Panel Informationon 02-27-2024 Eosinophils # (Auto)0.2 10 3/uL0.0-0.7FMedina HospitalImmature Granulocyte # (Auto)0.03 10 3/uL0.00-0.03[facility] Platelet mean volume Auto (Bld) [Entitic vol]on 83-96-9729Rycpaywm mean volume (Bld) [Entitic vol]8.8 fLLow9.5-13.5FMedina HospitalPlatelets Auto (Bld) [#/Vol]on 55-85-2597Lhxljowbl (Bld) [#/Vol]288 10 3/aJ740-343 [facility] HospitalRBC Auto (Bld) [#/Vol]on 40-10-3245WUU (Bld) [#/Vol]5.32 10 6/uL4.70-6.10[facility] Health Centererum or plasma anion gap determinationon 99-77-0697Wzubl gap [Moles/Vol]8.3 mmol/LFMedina HospitalBasophils Auto (Bld) [#/Vol]on 91-03-7255Eurphxyzq (Bld) [#/Vol]0.1 10 3/uL0.0-0.1FMedina HospitalBasophils/100 WBC Auto (Bld)on 75-38-0652Idwwuwszs/100 WBC (Bld)0.9 %0.2-2.0[facility] HospitalEosinophils/100 WBC Auto (Bld)on 17-55-1825Vrziqitgtib/100 WBC (Bld)2.7 % 0.9-7.0[facility] HospitalErythrocyte distribution width Auto (RBC) [Ratio]on 19-27-6973Jkpvflijfsi distribution width (RBC) [Ratio]13.1 % 11.0-15.0[facility] HospitalEstimated glomerular filtration rate (GFR) non- Americanon 06-00-8323GHH/1.73 sq M.predicted among non-blacks MDRD (S/P/Bld) [Vol rate/Area]mL/min/{1.73_m2}>=60[facility] HospitalGlucose mean value [Mass/volume] in Blood Estimated from glycated hemoglobinon 86-43-9079Nbplzvx glucose Estimated from glycated hemoglobin (Bld) [Mass/Vol]171 mg/dLNationwide Children'S HospitalHematocrit Auto (Bld) [Volume fraction]on 85-07-1393Xiceefuatv (Bld) [Volume fraction]48.9 %42.0-54.0 [facility] HospitalHemoglobin [Mass/volume] in Bloodon 12-05-2023 Hemoglobin (Bld) [Mass/Vol]16.0 g/dL14.0-18.0[facility] Laboratory - Chemistry and Chemistry - challengeon 10-37-8783Suulyzn [Mass/Vol] 9.7 mg/dL8.5-10.1FMedina HospitalChloride [Moles/Vol]102 mmol/L 98-107[facility] HospitalCO2 [Moles/Vol]27.6 mmol/L21.0-32.0 [facility] HospitalCreatinine [Mass/Vol]1.01 mg/dL0.70-1.30 [facility] HospitalGFR/1.73 sq M.predicted MDRD (S/P/Bld) [Vol rate/Area]mL/min/{1.73_m2}>=60[facility] HospitalGlucose [Mass/Vol]156 mg/oVFfys44-136NtiuxkwifNationwide Children'S HospitalPotassium [Moles/Vol]4.4 mmol/L3.5-5.1FUK Healthcareodium [Moles/Vol] 139 mmol/X566-108LumzkfiigNationwide Children'S HospitalUrea nitrogen [Mass/Vol]13.0 mg/dL7.0-18.0[facility] HospitalUrea nitrogen/Creatinine [Mass ratio]12.9 mg/mgNationwide Children'S HospitalLaboratory - Hematology and Cell countson 70-45-1889NZL (Bld) [Velocity]17 mm/h<=20[facility] HospitalHbA1c (Bld) [Mass fraction]7.6 %High4.5-6.2FMedina HospitalComment on above:ADA RECOMMENDED LIMIT 4.0 - 6.0ADA THERAPEUTIC TARGET < 7.0ACTION SUGGESTED> 7.0Immature granulocytes/100 WBC (Bld)0.4 %0.0-0.5 [facility] HospitalLeukocytes [#/volume] corrected for nucleated erythrocytes in Blood by Automated counon 62-24-0055HUR corrected for nucl RBC Auto (Bld) [#/Vol]7.7 10 3/uL4.0-11.0[facility] Lymphocytes Auto (Bld) [#/Vol]on 97-22-6744Dxgkmaupabx (Bld) [#/Vol]2.4 10 3/uL 1.2-3.8[facility] HospitalLymphocytes/100 WBC Auto (Bld)on 31-56-2991Yiqkciapusc/100 WBC (Bld)31.2 %20.5-60.0[facility]ullH Auto (RBC) [Entitic mass]on 95-07-8155NGU (RBC) [Entitic mass]28.5 pg 25.9-34.0[facility] HospitalMCHC Auto (RBC) [Mass/Vol]on 92-62-0676VYJZ (RBC) [Mass/Vol]32.7 g/dL29.9-35.2FMedina HospitalMCV Auto (RBC) [Entitic vol]on 95-75-5777DHV (RBC) [Entitic vol]87.0 fL 80.0-94.0[facility] HospitalMonocytes Auto (Bld) [#/Vol]on 22-80-0427Eefkneshz (Bld) [#/Vol]0.7 10 3/uL0.3-0.8[facility] HospitalMonocytes/100 WBC Auto (Bld)on 95-42-0197Aywvofxch/100 WBC (Bld)9.5 % 1.7-12.0[facility] HospitalNeutrophils Auto (Bld) [#/Vol]on 47-90-8100Zqtpbnnuxue (Bld) [#/Vol]4.2 10 3/uL1.4-6.5FMedina HospitalNeutrophils/100 WBC Auto (Bld)on 18-42-9483Zvfaejzavkp/100 WBC (Bld)55.3 % 43.0-75.0[facility] HospitalNo Panel Informationon 12-05-2023 Eosinophils # (Auto)0.2 10 3/uL0.0-0.7FMedina HospitalImmature Granulocyte # (Auto)0.03 10 3/uL0.00-0.03[facility] Platelet mean volume Auto (Bld) [Entitic vol]on 15-36-8946Vfjyiaaf mean volume (Bld) [Entitic vol]8.6 fLLow9.5-13.5FMedina HospitalPlatelets Auto (Bld) [#/Vol]on 01-43-7588Travwrkwn (Bld) [#/Vol]330 10 3/jI660-039 [facility] HospitalRBC Auto (Bld) [#/Vol]on 48-01-0257FGN (Bld) [#/Vol]5.62 10 6/uL4.70-6.10[facility] Health Centererum or plasma anion gap determinationon 15-76-8346Turfa gap [Moles/Vol]13.8 mmol/LFMedina HospitalMagnesiumon 08-02-0812Ldronfnlf [Mass/Vol]2.9260724 mg/dL Normal1.8-2.4 mg/dLBenham Content360 Other Magnesiumsee noteNojohn j. pershing [facility] Content360 Other XR CHEST 2 Von 40-83-0792VD CHEST 2 VEXAM: CHEST 2 VIEWS HISTORY: [...] Electronically authenticated by: RUBI TAVERAS Date: 2022-11-24 17:[address] [place] [address] LUNG CANCER SCREENINGon 73-54-3547WS LUNG CANCER SCREENING EXAMINATION: CT LUNG CANCER [...] Electronically authenticated by: YEISON NAVAS Date: 2022-07-20 07:18NormalThMercy Health [facility] AUTO DIFFon 70-98-4932GNZP #0.1 103/ulNormal0.0-0.1German HospitalComment on above:Performed By: #### CBC #### [facility] [address] [place] [address] Dr. Eran ChaconBasophils/100 WBC (Bld)0.6 %Normal0.2-2.0[facility] Comment on above:Performed By: #### CBC #### [facility] [address] [place] [address] Dr. Eran Groves #0.3 103/ulNormal0.0-0.7ThACMC Healthcare System GlenbeighComment on above: Performed By: #### CBC #### [facility] [address] [place] [address] Dr. Eran Hatfieldosinophils/100 WBC (Bld)3.3 %Normal0.9-7.0[facility] Comment on above:Performed By: #### CBC #### [facility] [address] [place] [address] Dr. Yilan ChangErythrocyte distribution width (RBC) [Ratio]12.9 %Mkivqp41.0-15.0 The [facility] CenterComment on above:Performed By: #### CBC #### [facility] [address] [place] [address] Dr. Eran ChaconHematocrit (Bld) [Volume fraction]47.7 %Tvpoqc54.0-54.0The [facility] CenterComment on above:Performed By: #### CBC #### [facility] [address] [place] [address] Dr. Eran ChaconHemoglobin (Bld) [Mass/Vol]15.9 g/cUEnasvj76.0-18.0The [facility] CenterComment on above:Performed By: #### CBC #### [facility] [address] [place] [address] Dr. Eran Sethi #0.02 10e3/ulNormal0.00-0.03The [facility] Medical CenterComment on above:Performed By: #### CBC #### [facility] [address] [place] [address] Dr. Eran Sethi %0.2 %Normal0.0-0.5The [facility] Medical CenterComment on above: Performed By: #### CBC #### [facility] [address] [place] [address] Dr. Eran Romero #3.4 103/ulNormal1.2-3.8The [facility] Medical CenterComment on above:Performed By: #### CBC #### [facility] [address] [place] [address] Dr. Eran Chandrahocytes/100 WBC (Bld)34.5 %Clveqd14.5-60.0The [facility] CenterComment on above:Performed By: #### CBC #### [facility] [address] [place] [address] Dr. Eran SanchezUAL DIFF REQNONormalThe [facility] CenterComment on above: Performed By: #### CBC #### [facility] [address] [place] [address] Dr. Eran GeorgeGladys (RBC) [Entitic mass]29.6 agTefcec56.9-34.0The [facility] CenterComment on above:Performed By: #### CBC #### [facility] [address] [place] [address] Dr. Eran George (RBC) [Mass/Vol]33.3 g/pCCztvdm65.9-35.2The [facility] CenterComment on above:Performed By: #### CBC #### [facility] [address] [place] [address] Dr. Eran George (RBC) [Entitic vol]88.8 sDFqipts09.0-94.0The [facility] CenterComment on above:Performed By: #### CBC #### [facility] [address] [place] [address] Dr. Eran Segura #0.9 103/ulCritically high0.3-0.8The [facility] Comment on above:Performed By: #### CBC #### [facility] [address] [place] [address] Dr. Eran Avilaocytes/100 WBC (Bld)9.3 %Normal1.7-12.0The [facility] Comment on above:Performed By: #### CBC #### [facility] [address] [place] [address] Dr. Eran AtkinsonUT #5.2 103/ulNormal1.4-6.5The [facility] CenterComment on above:Performed By: #### CBC #### [facility] [address] [place] [address] Dr. Eran Atkinsonutrophils/100 WBC (Bld)52.1 %Oyrybo27.0-75.0The [facility] CenterComment on above:Performed By: #### CBC #### [facility] [address] [place] [address] Dr. Eran Agee mean volume (Bld) [Entitic vol]8.8 fLCritically low 9.5-13.5The [facility] CenterComment on above:Performed By: #### CBC #### [facility] [address] [place] [address] [address] Eran ChaconPLT287 103/voBtvwmn949-286Fsg [facility] CenterComment on above: Performed By: #### CBC #### [facility] [address] [place] [address] Dr. Eran ChaconRBC5.37 106/ulNormal4.70-6.10The [facility] CenterComment on above:Performed By: #### CBC #### [facility] [address] [place] [address] Dr. Eran ChaconWBC9.9 103/ulNormal4.0-11.0The [facility] CenterComment on above: Performed By: #### CBC #### [facility] [address] [place] [address] Dr. Eran Jones URINE PROFILEon 56-50-3898Joeygqfai Ql (U)NegativeNormal NEGATIVEThe [facility] CenterComment on above:Performed By: #### BISHNU TREVINORO #### [facility] [address] [place] [address] Dr. Eran ChaconClarity (U)CLEARNormalCLEARGerman HospitalComment on above: Performed By: #### BISHNU TREVINORO #### [facility] [address] [place] [address] Dr. Eran Salazarlor (U)YELLOWNormalYELLOWThe [facility] CenterComment on above: Performed By: #### HANNA TREVINO #### [facility] [address] [place] [address] Dr. Eran Turner micrscopic examination will be performed if indicated. NormalThe [facility] CenterComment on above:Performed By: #### BISHNU TREVINORO #### [facility] [address] [place] [address] Dr. Eran ChaconGlucose Ql (U)500 mg/dlAbnormalNEGATIVEThe [facility] Comment on above:Performed By: #### BISHNU TREVINORO #### [facility] [address] [place] [address] [address] Eran ChaconHemoglobin Ql (U)TRACE-INTACTAbnormalNEGATIVEThe [facility] CenterComment on above:Performed By: #### BISHNU TREVINORO #### [facility] [address] [place] [address] Dr. Eran Abbottones Ql (U)NegativeNormalNEGATIVEThe [facility] CenterComment on above:Performed By: #### BISHNU TREVINORO #### [facility] [address] [place] [address] Dr. Eran ChaconLEUKOCYTESNegativeNormalNEGATIVEThe [facility] CenterComment on above:Performed By: #### BISHNU TREVINORO #### [facility] [address] [place] [address] Dr. Earn ChaconNitrite Ql (U)NegativeNormalNEGATIVEGerman HospitalComment on above:Performed By: #### BISHNU TREVINORO #### [facility] [address] [place] [address] Dr. Eran ChaconpH (U)6.0 [pH]Normal5-9German HospitalComment on above: Performed By: #### BISHNU TREVINORO #### [facility] [address] [place] [address] Dr. Eran ChaconSPEC GRAVITY1.131Exzjmo7.005-<=1.025The [facility] CenterComment on above:Performed By: #### BISHNU TREVINORO #### [facility] [address] [place] [address] Dr. Eran Schaeffer PROTEINNegativeNormalNEGATIVE/ TRACEThe [facility] on above:Performed By: #### BISHNU TREVINORO #### [facility] [address] [place] [address] Dr. Eran Kumar MICRO INDINDICATEDNoalThe [facility] CenterComment on above: Performed By: #### BISHNU TREVINORO #### [facility] [address] [place] [address] Dr. Eran Hugginsbilinogen Qn (U)0.2 {Aureliano'U}/dLNormal0.2 - 1.0The [facility] CenterComment on above:Performed By: #### HANNA TREVINO #### [facility] [address] [place] [address] [address] Eran Cuellar 14(COMP METB)on 13-19-5821Evpargk [Mass/Vol]4.0 g/dLNormal 3.4-5.0The [facility] CenterComment on above:Performed By: #### CMP #### [facility] [address] [place] [address] Dr. Eran ChaconAlbumin/Globulin [Mass ratio]1.2 {ratio}NormalThe [facility] CenterComment on above:Performed By: #### CMP #### [facility] [address] [place] [address] Dr. Eran AlfonsoP [Catalytic activity/Vol]104 U/WVqnrps15-821Qpm [facility] CenterComment on above:Performed By: #### CMP #### [facility] [address] [place] [address] Dr. Eran Zayas [Catalytic activity/Vol]28 U/RBfdvvw07-29Mwn [facility] CenterComment on above:Performed By: #### CMP #### [facility] [address] [place] [address] Dr. Eran Cm gap [Moles/Vol]7.2 mmol/LNormalThe [facility] CenterComment on above:Performed By: #### CMP #### [facility] [address] [place] [address] Dr. Eran ChaconAST [Catalytic activity/Vol]14 U/LCritically blu21-46Tgz [facility] CenterComment on above:Performed By: #### CMP #### [facility] [address] [place] [address] Dr. Eran ChaconBilirubin [Mass/Vol]0.4 mg/dLNormal0.2-1.0The [facility] Comment on above:Performed By: #### CMP #### [facility] [address] [place], [place] [address] Dr. Eran ChaconCalcium [Mass/Vol]9.0 mg/dLNormal8.5-10.1The [facility] Comment on above:Performed By: #### CMP #### [facility] [address] [place] [address] Dr. Eran ChaconChloride [Moles/Vol]103 mmol/SEowcbg98-784Irw [facility] Comment on above:Performed By: #### CMP #### [facility] [address] [place] [address] Dr. Eran ChaconCO2 [Moles/Vol]30.0 mmol/WJknojj72.0-32.0The [facility] Comment on above:Performed By: #### CMP #### [facility] [address] [place] [address] Dr. Eran ChaconCreatinine [Mass/Vol]0.85 mg/dLNormal0.70-1.30The [facility] CenterComment on above:Performed By: #### CMP #### [facility] [address] [place] [address] Dr. Barillas ChangEGFR-AF NEPALESE>60Normal>=60The [facility] CenterComment on above:Performed By: #### CMP #### [facility] [address] [place] [address] Dr. Eran HatfieldGFR-NON AF NEPALESE>60Normal>=60The [facility] CenterComment on above:Performed By: #### CMP #### [facility] [address] [place] [address] Dr. Eran ChaconGlobulin (S) [Mass/Vol]3.3 g/dLNormalThe [facility] CenterComment on above:Performed By: #### CMP #### [facility] [address] [place] [address] Dr. Eran ChaconGlucose [Mass/Vol]165 mg/dLCritically pcmv62-716Rlt [facility] CenterComment on above:Performed By: #### CMP #### [facility] [address] [place] [address] Dr. Yilan ChangPotassium [Moles/Vol]4.2 mmol/LNormal3.5-5.1The [facility] Comment on above:Performed By: #### CMP #### [facility] [address] [place] [address] Dr. Eran ChaconProtein [Mass/Vol]7.3 g/dLNormal6.4-8.2The [facility] Comment on above:Performed By: #### CMP #### [facility] [address] [place] [address] Dr. Eran ChaconSodium [Moles/Vol]136 mmol/LWfqfqd484-159Tls [facility] Comment on above:Performed By: #### CMP #### [facility] [address] [place] [address] Dr. Eran ChaconUrea nitrogen [Mass/Vol]10.0 mg/dLNormal7.0-18.0The [facility] CenterComment on above:Performed By: #### CMP #### [facility] [address] [place] [address] Dr. Eran Munoz nitrogen/Creatinine [Mass ratio]11.8 mg/mgNoACMC Healthcare System GlenbeighComment on above:Performed By: #### CMP #### [facility] [address] [place] [address] Dr. Eran Johnston MICROSCOPIC ONLYon [id number] SEENNormalNONE SEENGerman HospitalComment on above:Performed By: #### BISHNU TREVINORO #### [facility] [address] [place] [address] Dr. Eran Joiner identified Cx Nom (U)NOT INDICATEDNoACMC Healthcare System GlenbeighComment on above:Performed By: #### ERMELINDA TREVINOICRO #### [facility] [address] [place] [address] Dr. Eran Jason SEENNormalNONE SEENGerman HospitalComment on above:Performed By: #### URIEL UMICRO #### [facility] [address] [place] [address] Dr. Yilan ChangCrystals LM Nom (Urine sed)NONE SEENNormalNONE SEENGerman HospitalComment on above:Performed By: #### URIEL UMICRO #### [facility] [address] [place] [address] Dr. Barillas ChangEpithelial cells LM Ql (Urine sed)RARENormalNONE SEEN /RAREThe Sycamore Medical CenterComment on above:Performed By: #### URIEL, UMICRO #### [facility] [address] [place] [address] Dr. Eran ChaconMUCOUSNONE SEENNormalNONE SEENThe Sycamore Medical CenterComment on above:Performed By: #### URIEL UMICRO #### [facility] [address] [place] [address] Dr. Eran ChaconHmpjoBWB4-6Beeybg7-3Prj [facility] CenterComment on above:Performed By: #### BISHNU TREVINORO #### [facility] [address] [place] [address] Dr. Eran ChaconWBC2-5AbnormalNONE SEENGerman HospitalComment on above: Performed By: #### URIEL, UMICRO #### [facility] [address] [place] [address] Dr. Eran ChaconI SHOULDER LT WO CONon 15-24-3413ELW SHOULDER LT WO CON EXAMINATION: MRI SHOULDER [...] Electronically authenticated by: YEISON NAVAS Date: 2022-02-02 17:[address] [place] [address] Vital Signs Date TimeVital SignValuePerforming ZnhtvsxjoJstdjexo64-45-2633 13:51-0400 Diastolic blood klovlguz04 mm[Hg]Jeremy Magallanes MD Work Phone: 1([phone])[address]10-13-2025 13:51-0400 Heart rate75 /minJeremy Magallanes MD Work Phone: 1(360)[address]10-13-2025 13:51-0400 SaO2% (BldA) [Mass fraction]95 %Jeremy Magallanes MD Work Phone: 1(704)857-[address] [place], [place] [address]334610-13-2025 13:51-0400 Systolic blood ozjrbqdm700 mm[Hg]Jeremy Magallanes MD Work Phone: [phone])[address]10-13-2025 13:46-0400 Body .26 cmJeremy Magallanes MD Work Phone: [phone]47[facility]10-13-2025 13:46-0400 Body mass index (BMI) [Ratio]34 kg/g9GtwibkJeremy Magallanes MD Work Phone: 1(887)[address]10-13-2025 13:46-0400 Body tulodufihxb33.7 [degF]Jeremy Magallanes MD Work Phone: 1(844)[address]10-13-2025 13:46-0400 Body xqidvl830.32 kgJeremy Magallanes MD Work Phone: 1(121)19761 [address]07-01-2025 14:47-0400 Body nadaru638.26 cmJeremy Magallanes MD Work Phone: 1(324)[address]07-01-2025 14:47-0400 Body mass index (BMI) [Ratio]34 kg/s4LdzddaJeremy Magallanes MD Work Phone: 1(125)[address]07-01-2025 14:47-0400 Body wowdnd291.32 kgJeremy Magallanes MD Work Phone: 1(918)[address]07-01-2025 14:47-0400 Diastolic blood coaxwiba12 mm[Hg]Jeremy Magallanes MD Work Phone: 1(030)[address]07-01-2025 14:47-0400 Heart rate81 /Jennifer Magallanes MD Work Phone: 1(036)[address] [place], [place] 0426507-01-2025 14:47-0400 Respiratory rate12 /Jennifer Magallanes MD Work Phone: 1(895)[address] [place], [place] 0426507-01-2025 14:47-0400 SaO2% (BldA) [Mass fraction]97 %Jeremy Magallanes MD Work Phone: 1(481)330[address]07-01-2025 14:47-0400 Systolic blood egatzxpr026 mm[Hg]Jeremy Magallanes MD Work Phone: 1(378)[address] [place], [place] 0426506-05-2025 09:27-0400 Body obinzn953.26 [facility]06-05-2025 09:27-0400Body mass index (BMI) [Ratio]34.1 kg/k4FiuwseqfmNationwide Children'S Hospital06-05-2025 09:27-0400Body rshymgzdkib18.5 [degF][facility]06-05-2025 09:27-0400Body oqipyd037.77 kgN[facility]06-05-2025 09:27-0400Diastolic blood aowsmmux22 mm[Hg][facility] 01-21-2025 09:27-0400Heart rate72 /minN[facility]wide [facility] 01-21-2025 09:27-3468AfQ4% (BldA) [Mass fraction]97 %[facility]06-05-2025 09:27-0400Systolic blood mm[Hg][facility]05-06-2025 08:21-0400Body wzrtoz055.26 cmN[facility]05-06-2025 08:21-0400Body mass index (BMI) [Ratio]33.6 kg/m2 [facility]05-06-2025 08:21-0400Body vjqnjljiljq21.6 [degF][facility]05-06-2025 08:21-0400Body lxpunh067.41 kg [facility]05-06-2025 08:21-0400Diastolic blood mhylwuwy14 mm[Hg][facility]05-06-2025 08:21-0400Heart rate71 /min [facility]05-06-2025 08:21-7785ZnC7% (BldA) [Mass fraction]94 %[facility]05-06-2025 08:21-0400Systolic blood usdledlv646 mm[Hg][facility]02-27-2025 08:56-0500 Body aswjrk415.26 cmN[facility]02-27-2025 08:56-0500Body mass index (BMI) [Ratio]34.5 kg/h5GyyqjinqzNationwide Children'S Hospital02-27-2025 08:56-0500Body jhgnvwuskbn14 [degF][facility]02-27-2025 08:56-0500Body ujqcxl882.14 kgN[facility]02-27-2025 08:56-0500Diastolic blood gfqzdugr63 mm[Hg][facility] 10-15-2024 08:56-0500Heart rate76 /[facility] 10-15-2024 08:56-0500Systolic blood zgjtgafu009 mm[Hg][facility]12-05-2024 10:050Body uszbwg984.26 cmN[facility]12-05-2024 10:210500Body mass index (BMI) [Ratio]34.2 kg/m7VklpprsseNationwide Children'S Hospital12-05-2024 10:050Body sszkij353.23 kgN[facility]12-05-2024 10:0500Diastolic blood qnbuesnz42 mm[Hg] [facility]12-05-2024 10:0500Heart rate73 /minN[facility]wide Children'S Hospital12-05-2024 10:7862GzB5% (BldA) [Mass fraction]97 % [facility]12-05-2024 10:050Systolic blood mzuozuyj044 mm[Hg][facility]10-30-2024 09:13-0400Body mzpics312.26 cm MD Jeremy Magallanes Work Phone: 1([phone])[address]10-30-2024 09:13-0400 Body mass index (BMI) [Ratio]33.5 kg/m2MD Jeremy Magallanes Work Phone: 1(257)[address]10-30-2024 09:13-0400 Body dizsxovacgr59.1 [degF]MD Jeremy Magallanes Work Phone: 1(348)[address]10-30-2024 09:13-0400 Body .96 kgMD Jeremy Magallanes Work Phone: 1(860)[address]10-30-2024 09:13-0400 Diastolic blood rilgnuhp60 mm[Hg]MD Jeremy Magallanes Work Phone: [phone]10-30-2024 09:13-0400 Heart rate79 /minMD Jeremy Magallanes Work Phone: 1(704)782-[address] [place], [place] [address]4610-30-2024 09:13-0400 Systolic blood mm[Hg]MD Jeremy Magallanes Work Phone: 1(662)068-[address] [place], [place] [address]4610-09-2024 14:56-0400 Body jcfhto871.3 cmPriyanka Benites CASINO SHIFT MANAGER-METALLURGY LABORATORY TECHNICIAN Work Phone: [facility]10-09-2024 14:56-0400Body mass index (BMI) [Ratio]33.97 kg/q6EutrtylPriyanka Benites CASINO SHIFT MANAGER-METALLURGY LABORATORY TECHNICIAN Work Phone: [facility]10-09-2024 14:56-0400Body gzbxur071.33 kgJelaure Benites CASINO SHIFT MANAGER-METALLURGY LABORATORY TECHNICIAN Work Phone: [facility]08-20-2024 10:04-0400Body sjacyq367.3 cmMalathi Sanchez MD Work Phone: [facility] HospitalYvqvbveral90-94-4726 10:04-0400Body mass index (BMI) [Ratio]32.78 kg/t2VovmiyMalathi Sanchez MD Work Phone: [facility] HospitalOrglppkpqy66-52-1552 10:04-0400Body rutvdc896.59 kgMalathi Sanchez MD Work Phone: [facility] HospitalMgivkjajxb62-53-7512 10:04-0400Diastolic blood uhkmetvc38 mm[Hg]Malathi Sanchez MD Work Phone: [facility] HospitalCyeqkkgiyy01-25-5064 10:04-0400Systolic blood rmomfxyg280 mm[Hg]Malathi Sanchez MD Work Phone: [facility] HospitalPmbwotzjcu84-80-2606 08:46-0400Body .26 cm[facility]07-31-2024 08:46-0400Body mass index (BMI) [Ratio]34.4 kg/q5OchdnfvkyNationwide Children'S Hospital07-31-2024 08:46-0400Body .68 kgN[facility]07-31-2024 08:46-0400Diastolic blood ngjjcegy60 mm[Hg][facility]07-31-2024 08:46-0400 Heart rate72 /minN[facility]wide Children[facility] Hospital07-31-2024 08:46-0400Systolic blood mdyjnqsn676 mm[Hg][facility]07-16-2024 11:54-0400 Body .26 cmN[facility]07-16-2024 11:54-0400Body mass index (BMI) [Ratio]34.7 kg/g2CfosssgimNationwide Children'S Hospital07-16-2024 11:54-0400Body .59 kg[facility]07-16-2024 11:54-0400Diastolic blood sezilfju18 mm[Hg][facility] 03-03-2024 11:54-0400Heart rate69 /[facility] 03-03-2024 11:54-0400Systolic blood ohbnohks089 mm[Hg][facility]04-30-2024 08:54-0400Body fbexso919.26 cmN[facility]04-30-2024 08:54-0400Body mass index (BMI) [Ratio]35.2 kg/i1YxlncytnqN[facility]wide Children'S Hospital04-30-2024 08:54-0400Body nojeba756.4 [facility]04-30-2024 08:54-0400Diastolic blood ctbcswve68 mm[Hg] [facility]04-30-2024 08:54-0400Heart rate76 /[facility]04-30-2024 08:54-0400Systolic blood mxjkvmay659 mm[Hg] [facility]04-18-2024 08:52-0400Body vahrww991.26 cm [facility]04-18-2024 08:52-0400Body mass index (BMI) [Ratio]35 kg/n8HpwulhsadNationwide Children'S Hospital04-18-2024 08:52-0400Body weight 107.67 kgN[facility]04-18-2024 08:52-0400Diastolic blood sdvrhxfi45 mm[Hg][facility]04-18-2024 08:52-0400Heart rate69 /[facility]04-18-2024 08:52-0400Systolic blood mm[Hg][facility]01-26-2024 13:30-0500Body .26 cmJeremy Magallanes Other [facility]01-26-2024 13:30-0500 Body mass index (BMI) [Ratio]33.22 kg/t4TcddfdJeremy Magallanes Other [employer] Other 01-26-2024 13:30-0500Body kjfllxcmizd81.4 [degF]Jeremy Magallanes Other [employer] Other 01-26-2024 13:30-0500Body zluvul192.06 kgJeremy Magallanes Other [employer] Other 01-26-2024 13:30-0500Body ozondx933.05 kgN[facility]01-26-2024 13:30-0500Diastolic blood vhulavdp08 mm[Hg] Jeremy Magallanes Other [facility]01-26-2024 13:30-0500 SaO2% (BldA) [Mass fraction]93 %Jeremy Magallanes Other [employer] Other 01-26-2024 13:30-0500Systolic blood ijsbsckt134 mm[Hg] Jeremy Magallanes Other [facility]12-26-2023 10:30-0500 Body vudgkn115.26 cmJeremy Magallanes Other [employer] Other 12-26-2023 10:30-0500Body mass index (BMI) [Ratio]33.9 kg/y8XokcheJeremy Magallanes Other [employer] Other 12-26-2023 10:30-0500Body lnljup957.15 kgJeremy Magallanes Other [employer] Other 12-26-2023 10:30-0500Diastolic blood mm[Hg] Jeremy Magallanes Other [employer] Other 12-26-2023 10:30-0500Systolic blood zzlbnhem415 mm[Hg] Jeremy Magallanes Other [employer] Other 11-07-2023 08:45-0500Body ultktc847.26 cmJeremy Magallanes Other [employer] Other 11-07-2023 08:45-0500Body mass index (BMI) [Ratio] 33.37 kg/y0RqtossJeremy Magallanes Other [employer] Other 11-07-2023 08:45-0500Body zeutzulcaij41.5 [degF]Jeremy Magallanes Other [employer] Other 11-07-2023 08:45-0500Body cgilph710.51 kgJeremy Magallanes Other [employer] Other 11-07-2023 08:45-0500Diastolic blood sqplbyur87 mm[Hg] Jeremy Magallanes Other [employer] Other 11-07-2023 08:45-0500Systolic blood mm[Hg] Jeremy Magallanes Other [employer] Other 10-10-2023 10:45-0400Body .26 cmJeremy Magallanes Other [employer] Other 10-10-2023 10:45-0400Body mass index (BMI) [Ratio] 33.52 kg/a3LtbevwJeremy Magallanes Other [employer] Other 10-10-2023 10:45-0400Body hbejsh060.97 kgMilagromaikel Magallanes Other [employer] Other 10-10-2023 10:45-0400Diastolic blood fgipvspe62 mm[Hg] Jeremy Magallanes Other [employer] Other 10-10-2023 10:45-0400Systolic blood svvadfne789 mm[Hg] Jeremy Magallanes Other [employer] Other 10-04-2023 08:45-0400Body ymgayy301.26 cmMilagromaikel Magallanes Other [employer] Other 10-04-2023 08:45-0400Body mass index (BMI) [Ratio] 33.52 kg/j3EnglsbJeremy Magallanes Other [employer] Other 10-04-2023 08:45-0400Body amtdro416.97 kgMilagromaikel Magallanes Other [employer] Other 10-04-2023 08:45-0400Diastolic blood yiybjnht98 mm[Hg] Jeremy Magallanes Other [employer] Other 10-04-2023 08:45-0400Systolic blood jodrypka207 mm[Hg] Jeremy Magallanes Other [employer] Other 09-12-2023 09:45-0400Body picvxc862.26 cmJeremy Magallanes Other [employer] Other 09-12-2023 09:45-0400Body mass index (BMI) [Ratio] 34.32 kg/e3FgrnhjJeremy Magallanes Other [employer] Other 09-12-2023 09:45-0400Body yjtzsezvbrg26.2 [degF]Jeremy Magallanes Other [employer] Other 09-12-2023 09:45-0400Body natawg884.42 kgJeremy Sona Other [employer] Other 09-12-2023 09:45-0400Diastolic blood bwsqsovh31 mm[Hg] Jeremy Magallanes Other [employer] Other 09-12-2023 09:45-0400Respiratory rate16 /minJeremy Magallanes Other [employer] Other 09-12-2023 09:45-0400Systolic blood fvlophso526 mm[Hg] Jeremy Magallanes Other [employer] Other 07-05-2023 09:15-0400Body .26 cmJeremy Magallanes Other [employer] Other 07-05-2023 09:15-0400Body mass index (BMI) [Ratio] 33.46 kg/n8IfdbhsJeremy Magallanes Other [employer] Other 07-05-2023 09:15-0400Body tyyumy036.79 kgJeremy Magallanes Other [employer] Other 07-05-2023 09:15-0400Diastolic blood azeaghwd82 mm[Hg] Jeremy Magallanes Other [employer] Other 07-05-2023 09:15-0400Systolic blood vcsmijcn154 mm[Hg] Jeremy Magallanes Other [employer] Other 06-01-2023 08:45-0400Body vcxika990.26 cmJeremy Magallanes Other [employer] Other 06-01-2023 08:45-0400Body mass index (BMI) [Ratio] 33.37 kg/g7UwjbwhJeremy Magallanes Other [employer] Other 06-01-2023 08:45-0400Body .51 kgJeremy Magallanes Other [employer] Other 06-01-2023 08:45-0400Diastolic blood rznkdrau07 mm[Hg] Jeremy Magallanes Other [employer] Other 06-01-2023 08:45-0400Systolic blood ovqiwfcu440 mm[Hg] Jeremy Magallanes Other [employer] Other 04-07-2023 09:30-0400Body aruqpg015.26 cmJeremy Magallanes Other [employer] Other 04-07-2023 09:30-0400Body mass index (BMI) [Ratio] 33.96 kg/e3OclsrdJeremy Magallanes Other [employer] Other 04-07-2023 09:30-0400Body mgqimy110.33 kgJeremy Magallanes Other [employer] Other 04-07-2023 09:30-0400Diastolic blood clyxuxgw87 mm[Hg] Jeremy Magallanes Other [employer] Other 04-07-2023 09:30-0400Systolic blood rfoihnda059 mm[Hg] Jereym Magallanes Other [employer] Other 01-17-2023 11:30-0500Body pytqgm451.26 cmJeremy Sona Other [employer] Other 01-17-2023 11:30-0500Body mass index (BMI) [Ratio] 33.52 kg/i9Akhngq Sona Other [employer] Other 01-17-2023 11:30-0500Body awyljc477.97 kgJeremy Sona Other [employer] Other 01-17-2023 11:30-0500Diastolic blood arfkujgy86 mm[Hg] Jeremy Magallanes Other [employer] Other 01-17-2023 11:30-3864UjY6% (BldA) [Mass fraction]95 % Jeremy Magallanes Other [employer] Other 01-17-2023 11:30-0500Systolic blood dnsknuyj031 mm[Hg] Jeremy Magallanes Other [employer] Other 06-21-2022 12:45-0400Body xgbcoh016.26 cmThomas Olexa Other [employer] Other 06-21-2022 12:45-0400Body mass index (BMI) [Ratio] 31.01 kg/v4Mvnkdu Olexa Other [employer] Other 06-21-2022 12:45-0400Body yifaut05.26 kgThomas Olexa Other [employer] Other 10-08-2021 13:15-0400Body mhzzva452.26 cmAmber Ginty Other [employer] Other 10-08-2021 13:15-0400Body mass index (BMI) [Ratio] 31.01 kg/m1Cgxes Ginty Other [employer] Other 10-08-2021 13:15-0400Body drezxsgxqky19.3 [degF]Harriet Ginty Other [employer] Other 10-08-2021 13:15-0400Body ovmnkp28.26 kgAmber Ginty Other [employer] Other 10-08-2021 13:15-7617GrL2% (BldA) [Mass fraction]96 % Harriet Ginty Other [employer] Other Encounters Encounter DateEncounter TypeCare ProviderFacilityStart: 05-31-2025 End: 56-87-3519apjhvmrgkkQksrvg E Braun MD Work Phone: [facility] Work Phone: Start: 05-31-2025 End: 99-44-9024Kxxhpui encounter procedureJeremy Magallanes [facility] Work Phone: Start: 05-24-2025 End: 33-12-3613tbltxndzisKxdpuor Vytautas Giedraitis MDFacility:[facility] [place] Start: 04-26-2025 End: 79-02-6190uaacjmdthoGpwplfg Vytautas Giedraitis MDFacility:[facility] Start: 04-05-2025 End: 94-65-9651xzqcyzubiyEgexdlg Vytautas Giedraitis MDFacility:[facility] Start: 00-94-5019Ljwtolm encounter procedureJeremy Magallanes MD Work Phone: [address] [place], [place] [address]tart: 02-16-2025 End: 34-75-3293xffywylddpNgctxf E Braun MD Work Phone: [facility] Work Phone: Start: 02-16-2025 End: 77-26-4709Utmhosa encounter procedureJeremy Magallanes MD-[facility] Work Phone: Start: 01-21-2025 End: 88-89-8586kogrlhwvxcAauxwbsdkMercy Health [facility] Hospital Work Phone: Start: 01-21-2025 End: 23-42-5483Dspggvc encounter procedureFormerly [facility] Work Phone: Start: 41-03-4242Nat-patient / [facility] Work Phone: Start: 12-22-2024 End: 71-25-0768pdpywzdrgfMfyjhifurMercy Health Urbana Hospital Work Phone: Start: 12-22-2024 End: 44-43-8360Xputwzq encounter procedureF[facility] Work Phone: Start: 11-23-2024 End: 60-57-2882gliquusazwSlloxmlMaryuri Pike MDFacility:[facility] [place] Start: 11-04-2024 End: 83-75-8829ckhxhzarunKxid T AMESFacility:FTMCStart: 11-04-2024 End: 64-71-4210Dprurjg encounter procedureLigia T CHIKIS [facility] Start: 11-04-2024 End: 98-99-8965huzlwsjnqaGsmi T AMESFacility:[facility] Start: 10-15-2024 End: 95-12-0019naqhqjajmwUatlyuvroMercy Health Urbana Hospital Work Phone: Start: 10-15-2024 End: 56-04-6935Hqristi encounter procedureF[facility] Work Phone: Start: 51-92-3830Xtl-patient / Non-visitF[facility] Work Phone: Start: 95-16-1181Jhg-patient / Non-visitFirpimas [facility] Work Phone: Start: 50-53-8694Wna-patient / Non-visitFirpimas [facility] Work Phone: Start: 08-17-2024 End: 77-04-3318ziqxzgblsxHncmodcMaryuri Pike MDFacility:SANDRA Ross Start: 07-23-2024 End: 20-75-1955Tqdwqok encounter procedureF[facility] Work Phone: Start: 09-29-6730Mwi-patient / Non-visitFirnorton [facility] Work Phone: Start: 85-28-9049Qqf-patient / Non-visitFirpimas [facility] Work Phone: Start: 06-17-2024 End: 18-25-2938oyyiqxvklcZY Marcia E Braun Work Phone: [facility] Work Phone: Start: 06-17-2024 End: 60-58-7975Bdogidi encounter procedureMD Jeremy Magallanes Work Phone: [facility] Work Phone: Start: 06-12-2024 End: 50-43-7975Bjiirf OnlyNot In System Ref ProvProMedica Physicians General SurgeryStart: 06-10-2024 End: 58-94-3798Udjohm OnlyRosalia Shea RMAProMedica Physicians General SurgeryComment on above:Dysphagia, unspecified type; Black stoolsStart: 06-03-2024 End: 55-58-0787pnkijxylhzIO Marcia E Braun Work Phone: [facility] Work Phone: Start: 06-03-2024 End: 22-62-9231Pmqwrqln ReferredMD Jeremy Magallanes Work Phone: [facility]-LAB Path Spec [facility] HospStart: 93-10-1812Btp-patient / Non-visitMD Jeremy Magallanes Work Phone: [facility] GroupDay[facility] Work Phone: Start: 05-27-2024 End: 86-17-5481Ukgvdj outpatient new 30 [facility]Mem[facility] CASINO SHIFT MANAGER-[facility] Work Phone: [facility] Physicians General SurgeryComment on above: Dysphagia, unspecified type (Primary Dx); Black stools; Gastroesophageal reflux disease, unspecified whether esophagitis present; Abnormal esophagramStart: 05-27-2024 End: 92-52-8279bmriqiicxuLEDFXKYMultiCare Health [facility] Start: 05-14-2024 End: 73-88-8913Pgxdjvjfd encounterToms Marc JACOB Work Phone: General SurgeryComment on above:New Patient; Dynamicist - OtherStart: 05-04-2024 End: 85-02-8475Zhwqdlhcn encounterMalathi Sanchez MD Work Phone: [facility] CI ENTStart: 04-08-2024 End: 07-39-4137Magxoariu Result EncounterHisintia Sanchez MD Work Phone: [facility] External Department UnsolicitedStart: 04-08-2024 End: 41-00-7284Lkenmkhyn Result EncounterMalathi Sanchez MD Work Phone: [facility] External Department UnsolicitedStart: 04-07-2024 End: 81-69-6043Qzxyyc flowsheetMalathi Sanchez MD Work Phone: [facility] CI ENTStart: 04-07-2024 End: 24-32-2471Wodqcq flowsheetMalathi Sanchez MD Work Phone: [facility] CI ENTStart: 04-07-2024 End: 05-94-8941Jsyqjb outpatient new 45 minutesMalathi Sanchez MD Work Phone: [facility] CI ENTComment on above:Esophageal dysphagia (Primary Dx); Neck massStart: 04-07-2024 End: 45-14-7626qakvbltnxfAERSJW H TIMMISNot AvailableStart: 03-18-2024 End: 83-91-2470sbczazogihZjzqogcxiMercy Health Urbana Hospital Work Phone: Start: 03-18-2024 End: 71-05-6428Sbckiyn encounter procedureF[facility]e [facility] Work Phone: Start: 03-03-2024 End: 75-01-9644awdkuatnttMwnrszrpoUC [facility] Work Phone: Start: 03-03-2024 End: 65-65-8470Mrbooxr encounter procedureF[facility]e [facility] Work Phone: Start: 23-38-8175Ots-patient / Non-visitF[facility] Work Phone: Start: 12-17-2023 End: 14-79-2211yyxmbbahqhTixgcpekkUC [facility] Work Phone: Start: 12-17-2023 End: 47-07-0988Qsszbab encounter procedureF[facility]e [facility] Physician GroupSt. [facility] Work Phone: Start: 12-05-2023 End: 16-23-3117uyljjgdwelQjcgxjxmpUC [facility] Work Phone: Start: 12-05-2023 End: 81-79-0788Qfouevb encounter procedureF[facility] Work Phone: Start: 16-74-4313Usl-patient / Non-visitF[facility] Work Phone: start: 38-69-5846Myz-patient / Non-visitMendoza Physician Group-[facility] Work Phone: Start: 10-07-2023 End: 10-43-2971mdbhjfzjvcQECNO A POCOSNot AvailableStart: 09-18-2023 End: 07-52-4893igitbuldjnYvgluc Braun Other [employer] Other Start: 33-32-5657Iplqzgezy encounterMarbenton SonaMedina Hospitaltart: 09-13-2023 End: 03-86-0553obildfqivcGelduq Braun Other [employer] Other Start: 75-06-2898Yvjwlb outpatient visit 15 minutes [facility] Hospitaltart: 09-13-2023 End: 37-34-5542Amktyja encounter procedureFrye [facility]ician [facility]-Start: 92-80-2046Eenjjinom encounterArgentina Clinton PT Work Phone: NOCI CI PTComment on above:re: PT Eval (He [...] lm. Requested call back reinier.)Start: 09-10-2023 End: 86-08-4037kpsoedktsfGgwdpw Braun Other [employer] Other Start: 79-89-0843Hnsnejjeo encounterMarcia Jori [facility] ClinicStart: 09-06-2023 End: 00-19-1188tbgdhcqshvTtkrwy Magallanes Other [employer] Other Start: 79-24-8978Fyeylvbbe encounterMarcia Jori [facility] Medical ClinicStart: 09-02-2023 End: 19-87-2118axvhhabptvXQODX A POCOSNot AvailableStart: 08-20-2023 End: 81-30-0626elpvxifxvfRiaqyu Magallanes Other [employer] Other Start: 30-13-0293Xpbybirfv encounterMarcia Jori [facility] ClinicStart: 08-13-2023 End: 72-00-2637grigfdjiisYguhit Magallanes Other [employer] Other Start: 29-33-9714Owgccl outpatient visit 25 minutes [facility] ClinicStart: 33-40-8166Prwcibhnx encounterMarcia Jori [facility] ClinicStart: 08-06-2023 End: 96-75-9827xqarelfezsXenftg Magallanes Other [employer] Other Start: 75-76-6250Glufklkyp encounterMarcia LatanyaG [facility] ClinicStart: 07-29-2023 End: 20-10-0482kxkzvrlnljMLUMR A POCOSNot AvailableStart: 07-22-2023 End: 80-97-8907gvydgxryctHfyqiz Magallanes Other [employer] Other Start: 69-51-0721Vfzmvqrse encounterMarcia LatanyaG [facility] ClinicStart: 07-19-2023 End: 59-86-3811mufecyonxfAfrzzm Magallanes Other [employer] Other Start: 89-57-5281Bxumzrmyi encounterMarcia Jori [facility] ClinicStart: 07-18-2023 End: 25-63-6538wuukgxednmVcmuub Magallanes Other noFR[employer] Other Start: 79-70-6261Kzdmngvlp encounterMarcia Jori [facility] ClinicStart: 07-02-2023 End: 57-50-1445wpgacpwsdpBmflps Magallanes Other noFR[employer]ED [employer] Other Start: 13-08-1339Fcpeak outpatient visit 15 minutes [facility] ClinicStart: 96-10-1342Oaqbdhikd encounterMarcia Jori [facility] ClinicStart: 06-25-2023 End: 99-56-7799zpazraukfdKctkvj Magallanes Other [facility] [employer] Other Start: 47-62-3609Qmiwbb outpatient visit 15 minutes [facility] ClinicStart: [facility] End: 35-93-5907difgpqikwuUdjdae Magallanes Other [facility] [employer] Other Start: 76-75-6490Boaapyopf by computer linkJeremy Gracia Medical ClinicStart: 06-20-2023 End: 48-33-7535shordsncptCptkdo Magallanes Other [facility] [employer] Other Start: 45-95-7987Igsiydrls encounterMarcia Jori [facility] ClinicStart: 06-17-2023 End: 50-50-2257gwxaqjakdrFebowl Magallanes Other noFRAMED [employer] Other Start: 76-40-5109Kqbtvgtwc encounterMarcia Jori [facility] ClinicStart: 06-10-2023 End: 48-74-6934cdcqgyqltfUwilyb Magallanes Other [employer] Other Start: 08-39-7079Yhjoqofni encounterMarcia Jori [facility] ClinicStart: 06-03-2023 End: 68-54-5700ehtrtmywhySomnxe Magallanes Other noFRAMED [employer] Other Start: 32-56-2111Vwgxkjiko encounterMarcia Jori [facility] ClinicStart: 05-30-2023 End: 07-43-6314Wemmpsz encounter procedureDavid A Pocos [facility] Start: 05-28-2023 End: 48-97-0913wpcqqnwjdkIhtazm Magallanes Other no[employer]AMED [employer] Other Start: 27-86-0725Dhxmlb outpatient visit 15 minutes [facility] ClinicStart: 2023 End: 77-37-4669khvhhozbbzErinzj Magallanes Other [facility] [employer] Other Start: 55-36-9093Awpinl outpatient visit 15 minutes [facility] ClinicStart: 05-16-2023 End: 04-44-9750xdfgtylnxnXdawiz Magallanes Other no[employer]AMED [employer] Other Start: 92-52-6604Ynfijxqdh encounterMarcia Jori [facility] ClinicStart: 04-30-2023 End: 07-94-7500mgcgqjzbieBgdrkd Magallanes Other no[employer]AMED [employer] Other Start: 56-46-5302Vnjquv outpatient visit 15 minutes [facility] ClinicStart: 04-26-2023 End: 62-41-7498jqiedbkpxdBgypfk Magallanes Other [employer] Other Start: 00-18-5147Jclrjsyrw encounterMarcia LatanyaG [facility]Start: 04-23-2023 End: 11-54-8648nanpvedspdYsrxed Magallanes Other [employer] Other Start: 95-00-1421Xqedmsmkz encounterMarcia LatanyaG [facility] ClinicStart: 03-25-2023 End: 46-95-1067tbfxczixmtBgfbpw Magallanes Other [employer] Other Start: 64-90-4555Krilfnjsi encounterMarcia SonaCo[facility] ClinicStart: 03-06-2023 End: 33-00-8602powepirrbhFhuden Magallanes Other [employer] Other Start: 93-72-6324Bghauejgh encounterMarcia LatanyaLake City [facility] Medical ClinicStart: 02-20-2023 End: 42-25-8792shnrfuosviEdrnjb Magallanes Other [employer] Other Start: 98-52-4335Axmibz outpatient visit 25 minutes Jeremy MagallanesBl[facility] ClinicStart: 02-05-2023 End: 53-82-2087ogmnxssrjsVvyncs Magallanes Other [employer] Other Start: 21-36-3676Jkoscfzuo encounterMarcia LatanyaLake City [facility] Center Medical ClinicStart: 01-21-2023 End: 43-85-4827jzdexrmcwnLxyevc Magallanes Other [employer] Other Start: 07-28-9902Ooowowpph encounterMarcia LatanyaG Referral CoordinatorStart: 01-17-2023 End: 00-15-8410wozknmfhyyNlesef Magallanes Other [employer] Other Start: 13-51-9170Atmksg outpatient visit 15 minutes [facility] ClinicStart: 12-24-2022 End: 97-33-7674tazsqjsmxeXuqhtx Magallanes Other [employer] Other Start: 83-99-0802Wxoxpbnwi encounterMarcia Jori [facility] ClinicStart: 12-03-2022 End: 85-69-1725utbnlahhywEokdti Magallanes Other [employer] Other Start: 42-64-0122Fsvddjdbt encounterMarcia SonaYamini [facility] ClinicStart: 11-27-2022 End: 58-39-2774nxspwbmqghRyhcle Magallanes Other [employer] Other Start: 94-27-4445Tbnrmstof encounterMarcia Jori [facility] ClinicStart: 11-26-2022 End: 60-43-3090hhtkhqswmnVyaber Magallanes Other [employer] Other Start: 30-60-2168Ieahjiuqb encounterMarcia SonaBANNER [facility] ClinicStart: 11-24-2022 End: 21-14-9901sjqgemjqqhYI JEREMY MAGALLANESFacility:Q9Jqdcm: 11-23-2022 End: 94-67-6920vyzvduqzhiUypubw Magallanes Other [employer] Other Start: 19-17-9029Ncmymx outpatient visit 15 minutes [facility] ClinicStart: 11-05-2022 End: 73-62-7593pytqyctyylRmwvib Magallanes Other [employer] Other Start: 98-78-4262Gsmvwhwuu encounterMarcia SonaG [facility]Start: 10-03-2022 End: 17-22-4862noojgnoykxEcmkkx Braun Other [employer] Other Start: 98-48-8459Ptnfnuhaj encounterJeremy Hsieh [facility] ClinicStart: 09-04-2022 End: 72-50-7602rnutndezjyAdnpjt Braun Other [facility] [employer] Other Start: 07-85-7197Sajnxy outpatient visit 25 minutes Jeremy SonaDIMAS [facility] ClinicStart: 15-16-9753kzmlsrmylbPY JEREMY MAGALLANES Facility:T5Lerag: 07-19-2022 End: 65-95-6817ftwumwxopxUK WILFREDO KADIEFacility:X9Tlvjx: 06-07-2022 End: 23-54-1435paowlofcgjBW JEREMY MAGALLANESFacility:M6Qnlce: 62-76-6892qvuoeslzgm KESHA OLEXAFacility:V4Sqpuk: 02-06-2022 End: 42-73-9779vysxjzgwjwDnimeg Olexa Other noFRAMED [employer] Other Start: 73-45-7922Jtrpia outpatient visit 25 minutes Kesha Medley [place] [facility]Start: 02-02-2022 End: 81-19-2513kxzopjmvtgWGXLMJ OLEXAFacility:T2Yztko: 12-28-2021 End: 49-87-6896bvqgkmnvicBY JEREMY MAGALLANESFacility:R4Wwhgf: 12-12-2021 End: 56-93-3688fyowernhnkZOHJPH OLEXANort [employer] Other Start: 06-59-3578Mxvipv outpatient new 30 minutes Kesha [facility]al [facility] [place]vueStart: 62-83-0431Xwiyxi outpatient visit 15 minutesAmber GintyFPG [facility] Jerry Procedures DateProcedureProcedure DetailPerforming ClinicianStart: 06-03-2024 EsophagogastroduodenoscopyJelaure Benites CASINO SHIFT MANAGER-METALLURGY 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 Work Phone: Start: 78-02-9412Hpocq i surg pathology gross examination onlyNot In System Ref ProvStart: 22-57-7091MDFFJEPI LABSNot In System Ref ProvStart: 14-35-6172EU videography Hypopharynx and Esophagus Views for swallowing function W speech and W barium contrast POMalathi Sanchez MD Work Phone: Start: 72-56-2764VI CINERADIOGRAPHYMalathi Sanchez MD Work Phone: Start: 41-51-7159Opmtycllui test result abnormalMarcia Magallanes Other Start: 93-99-5501Tseizbv of sutureMarcia Magallanes Other Start: 51-00-5108Zaxmsezgx for malignant neoplasm of prostateMarcia Magallanes Other Screening for malignant neoplasm of colonMarcia Magallanes Other Screening for malignant neoplasm of prostateMarcia Magallanes Other Plan of Treatment DateCare ActivityDetailAuthorStart: 19-99-6422OLkZ,Tdap and Td Vaccines (3 - Td or Tdap)DTaP,Tdap and Td Vaccines (3 - Td or Tdap)[facility] SystemStart: 75-81-3026Hplsx BMI ScreeningAdult BMI ScreeningProSelect Medical [facility] SystemStart: 81-16-6282Teggwhs ScreeningTobacco ScreeningProSelect Medical [facility] SystemStart: 77-51-0374Yzqxbyk referralWilson Health Work Phone: Start: 05-05-7017Nvnnzzmpl vaccinationInfluenza VaccineProSt. Vincent'S Hospital Health SystemStart: 04-07-2024 End: 16-85-6603Rensztj encounter raiufjnri31/20/2024 10:30 AM EDT Office Visit [facility] [address] [place] [address] Malathi Sanchez MD [address] [place], [place] [id number] ArrivedNOMS CI ENTComment on above:ArrivedStart: 38-40-5396Auqchhi referralWilson Health Work Phone: Start: 10-07-2023 End: 86-44-1987Nhyczwl encounter tdlucqpbh31/19/2024 8:00 AM EST Office Visit [facility] [address] [place] [address] Barbie Jesus DO [address] [place] [address] [facility] ORTHOStart: 30-45-4984Vzlbcjujetbhfm of varicella zoster vaccineZoster (Shingles) Vaccine (1 of 2)[facility] SystemStart: 77-37-5388Rdxyo BMI Follow Up PlanAdult BMI Follow Up PlanProSelect Medical [facility] SystemStart: 40-12-4941Iseqmjfnpi ScreeningDepression ScreeningProSelect Medical [facility] SystemStart: 61-40-3873Tocasfy CounselingTobacco CounselingProSelect Medical [facility] SystemComprehensive metabolic 2000 panel - Serum or PlasmaNationwide Children'S HospitalCT Chest WO contrastNationwide Children'S HospitalCT Neck W contrast [facility] End: 53-10-9065OqaigwhdqnidxvwsavclqdyisdBJB GI Routine Dysphagia, unspecified type Black stools 1 Occurrences starting 05/27/2024 until 05/27/2025[facility] Work Phone: Comment on above:1 Occurrences starting 05/27/2024 until 05/27/2025Patient referralWilson Health Work Phone: [facility] - [facility] Immunizations Immunization DateImmunizationNotesCare CmeapnlsTurmudfm82-62-7927Uehtnpdju, injectable, Madin Gould Canine Kidney, preservative free, quadrivalentPamela Oz PT Work Phone: [facility] HospitalAnxvkccidr96-78-9727mbqrdczzr virus vaccine, unspecified formulationPriyanka Benites CASINO SHIFT MANAGER-METALLURGY LABORATORY TECHNICIAN Work Phone: [facility] Medical CenterYyibhr04-35-5728nnqrryktq virus vaccine, split virus (incl. purified surface antigen)Jeremy Magallanes Other [place] [employer] Other 09-899840-80-9789obestmtfk virus vaccine, unspecified formulationNationwide Children'S Hospital09-28-2017influenza, injectable, quadrivalent, preservative freePamela Clinton PT Work Phone: [facility] HospitalJsgijqhxfa53-76-6095ewztvyoik, injectable, quadrivalent, preservative freePamela Clinton PT Work Phone: [facility] HospitalTxrrqthzkn87-13-5014kdnecln and diphtheria toxoids, adsorbed, preservative free, for adult use (5 Lf of tetanus toxoid and 2 Lf of diphtheria toxoid)Jeremy Magallanes Other [facility]10-07-2015influenza, seasonal, injectable, preservative freePamela Clinton PT Work Phone: [facility] HospitalXfmzqlkyoa03-12-4432ypexvqz and diphtheria toxoids, adsorbed, preservative free, for adult use (5 Lf of tetanus toxoid and 2 Lf of diphtheria toxoid)Jeremy Magallanes Other [facility]10-28-1999 pneumococcal conjugate vaccine, 7 valentPamela Oz PT Work Phone: [facility] Payers DatePayer CategoryPayerPolicy [id number] [id number] 2013Medicare [id number] 2.16840.1.820987.3.57[id number] 2.16.840.1.259246.3.57[id number] 2.16.840.1.382501.3.57[id number] 2.16.840.1.828151.3.57[id number] 2.16.840.1.822314.3.57[id number] 2.16.840.1.379330.3.57[id number] 2.16.840.1.526894.3.57[id number] 2.16.840.1.487465.3.57[id number] 2.16.840.1.376244.3.579.[id number] 2.16.840.1.579751.3.57[id number] 2.16.840.1.098795.3.57[id number] 2.16.840.1.073224.3.57[id number] 2.16.840.1.603417.3.57[id number] 2.16.840.1.443989.3.57[id number] 2.16.840.1.090586.3.57[id number] 2.16.840.1.112471.3.57[id number] 2.16.840.1.668101.3.57[id number] 2.16.840.1.033238.3.57[id number] 2.16.840.1.353974.3.57[id number] 2.16.840.1.906416.3.57[id number] 2.16.840.1.505815.3.579.2.196 [id number] 2.16.840.1.802345.19 [id number] 2.16.840.1.855402.19Self-pay [id number] Social History DateTypeDetailFacilityStart: 09-02-2023 End: 25-99-1765Qaf Assigned At [facility] Street HospitalTobacco smoking statusMemorial Health System Marietta Memorial Hospitaltart: 03-27-2023 End: 87-09-0141Cmtnbee smoking status NHISSmokes tobacco dailyNOMI Healthcare Work Phone: History of tobacco useCigarette SmokerN[facility]S Healthcare Start: 03-27-2023 End: 85-22-2118Wujoinbsot smoked current (pack per day) - Reported0.5N[facility]S HealthcareStart: 03-27-2023 End: 25-53-8902Ggvmjiq use and exposureSmokeless tobacco non-userNOMS Healthcare Start: 09-02-2023 End: 42-33-0434Khfghqz intakeLifetime non-drinker (finding)[facility] HealthcareStart: 60-04-1581Esjxjft CommentCaffine- SodaNOMS HealthcareStart: 33-42-5093Yoq Assigned At [facility] HealthcareStart: 93-37-7146Ixwlkb identityIdentifies as male gender (finding)[facility] HealthcareStart: 59-81-8565Wgpslw orientation Heterosexual (finding)[facility] HealthcareStart: 02-06-2017 End: 45-60-3849Ybxxvih smoking status NHISEx-smoker (finding)[facility] HospitalTobacco smoking status NHISTobacco smoking consumption unknown [facility] Centertart: 83-74-0465Cqz assigned at birthNot on fileBarney Children's Medical Centertart: 36-02-1012Akjrfygsg of Alcohol ConsumptionNeverNCARL [facility] Start: 06-01-2019 End: 76-45-8819OqpQesb (finding)[facility]'s HospitalEcorNaturaSìAppleton Municipal Hospital [place] [facility] Equipment Procedure CodeEquipment CodeEquipment Original TextEquipment IdentifierDates Accu-Chek FastClix Lancet -Blood Sugar Diagnostic (Accu-Chek Ya Plus Test Strp) stripStart: 34-49-5575Wbxnzrc (Accu-Chek Fastclix Lancet Drum) miscStart: 32-75-2270Gmpxw Sugar Diagnostic (Accu-Chek Ya Plus Test Strp) stripStart: 11-04-2024 End: 79-35-1982Ipuyl Sugar Diagnostic (Accu-Chek Ya Plus Test Strp) strip Start: 11-05-2024 End: 97-86-0249Lcbns Sugar Diagnostic (Accu-Chek Ya Plus Test Strp) strip Start: 11-05-2024 End: 24-96-0842Rvhigsx (Accu-Chek Fastclix Lancet Drum) miscStart: 10-26-2024 End: 84-88-8344Umhejfh (Accu-Chek Fastclix Lancet Drum) miscStart: 10-27-2024 End: 64-72-1618Entvi Sugar Diagnostic (Accu-Chek Ya Plus Test Strp) strip Start: 48-01-8118Zicwcdb (Accu-Chek Fastclix Lancet Drum) miscStart: 10-28-2024 Blood Sugar Diagnostic (Accu-Chek Ya Plus Test Strp) stripStart: 11-04-2024 End: 18-81-5379Gglfl Sugar Diagnostic (Accu-Chek Ya Plus Test Strp) strip Start: 11-05-2024 End: 83-85-5003Pruwz Sugar Diagnostic (Accu-Chek Ya Plus Test Strp) strip Start: 11-05-2024 End: 36-82-7990Kwpqfyd (Accu-Chek Fastclix Lancet Drum) miscStart: 10-26-2024 End: 44-41-4271Lpqwrnf (Accu-Chek Fastclix Lancet Drum) miscStart: 10-27-2024 End: 24-29-9116Gchfg Sugar Diagnostic (Accu-Chek Ya Plus Test Strp) strip Start: 47-47-0358Rhbcoqx (Accu-Chek Fastclix Lancet Drum) miscStart: 10-28-2024 Blood Sugar Diagnostic (Accu-Chek Ya Plus Test Strp) stripStart: 11-04-2024 End: 10-29-3099Ylizt Sugar Diagnostic (Accu-Chek Ya Plus Test Strp) strip Start: 11-05-2024 End: 38-00-1905Budyc Sugar Diagnostic (Accu-Chek Ya Plus Test Strp) strip Start: 11-05-2024 End: 72-93-8730Girxdbn (Accu-Chek Fastclix Lancet Drum) miscStart: 10-26-2024 End: 67-54-8515Khgakmr (Accu-Chek Fastclix Lancet Drum) miscStart: 10-27-2024 End: 11-06-8023Vmvvk Sugar Diagnostic (Accu-Chek Ya Plus Test Strp) strip Start: 94-72-8251Dyqudsi (Accu-Chek Fastclix Lancet Drum) miscStart: 10-28-2024 Blood Sugar Diagnostic (Accu-Chek Ya Plus Test Strp) stripStart: 11-04-2024 End: 40-17-5052Ugrmh Sugar Diagnostic (Accu-Chek Ya Plus Test Strp) strip Start: 11-05-2024 End: 55-94-0790Msbkl Sugar Diagnostic (Accu-Chek Ya Plus Test Strp) strip Start: 11-05-2024 End: 62-89-5151Knxwoho (Accu-Chek Fastclix Lancet Drum) miscStart: 10-26-2024 End: 09-63-0582Xvksxaq (Accu-Chek Fastclix Lancet Drum) miscStart: 10-27-2024 End: 10-28-2024 Clinical Notes 05-26-2021 to 12-22-2024 Note Date & WnnqGgekVmkftkto61-43-9236 Evaluation note* Diagnosis Onset Date Resolution Status Admit Date Bronchitis acuteMay 2024 8:19amBruisingacuteMay 2024 8:19amEnlarged prostateacute December 22, 2024 8:19amScreening PSA (prostate specific antigen)acuteMay 2024 8:19amType II diabetes mellitusacuteMay 2024 8:19am [facility] Work Phone: 1(803) 436-204705-06-2025 Evaluation note* Diagnosis Onset Date Resolution Status Admit Date Bronchitis acuteMay 2024 8:19amBruisingacuteMay 2024 8:19amEnlarged prostateacute December 22, 2024 8:19amScreening PSA (prostate specific antigen)acuteMay 2024 8:19amType II diabetes mellitusacuteMay 2024 8:19amBronchitisacuteJune 2024 9:26am [facility] Work Phone: 1(830) 649-417103-19-2025 NoteProgress Note-Nurse LVM to talk about A1C level, he will be getting a one year card but will have to talk with his PCP about getting that number down.[facility] 10-15-2024 Evaluation note* Diagnosis Onset Date Resolution Status Admit Date Bladder diverticulum acuteFebruary 2024 8:52amEnlarged prostateacuteFebruary 2024 8:52am LymphadenopathyacuteFebruary 2024 8:52amUrticariaacuteFebruary 2024 8:52amBruisingacuteMay 2024 8:19amEnlarged prostateacuteMay 2024 8:19amScreening PSA (prostate specific antigen)acuteMay 2024 8:19amType II diabetes mellitusacuteMay 2024 8:19am [facility] Work Phone: 1(290) 521-940512-05-2024 Evaluation note* Diagnosis Onset Date Resolution Status Admit Date GERD (gastroesophageal reflux disease) acuteDecember 2023 10:18amLymphadenopathyacuteDecember 2023 10:18am Mass of left submandibular regionacuteDecember 2023 10:18amBladder diverticulumacuteFebruary 2024 8:52amEnlarged prostateacuteFebruary 2024 8:52amLymphadenopathyacuteFebruary 2024 8:52am [facility] Work Phone: 1(679) 338-675610-25-2024 Miscellaneous Notes* Telephone Encounter - Evelyn Mendoza [...] Address verified with patient. [facility] in [facility] encounterA[facility] Tele[facility] encounter Note* Telephone Encounter - [...] risk of esophageal cancer. Thanks, Dr. Kc Quisic10-25-2024 Telephone encounter Note* Telephone Encounter - Evelyn Mendoza CMA - 06/12/2024 12:00 PM EDT Spoke with patient regarding pathology results. Patient verbally understood with no further questions. 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 Address verified with patient. Quisic10-09-2024 History of Present illness Narrative* Priyanka Benites, CASINO SHIFT MANAGER-METALLURGY LABORATORY TECHNICIAN - 05/27/2024 2:30 PM EDT Images from [...] gallbladder polyp. He saw Dr. Martinez in [place] for this. He also reports a positive [...] confusion. Past Medical History: Diagnosis Date Cancer ([facility]) Chronic back pain COPD (chronic obstructive pulmonary disease) ([facility]) Dental disease full dentures Diabetes mellitus ([facility]) Shortness of breath Skin [...] patient/family/caregiver Referring and communicating with other health rn wound care Dysphagia, unspecified type [R13.10] CHARLEE BIGGS [facility] [place] This note was created with the assistance of a speech recognition program. While intending to generate a timely document that accurately reflects the content of the visit, no guarantee can be provided that every grammatical or spelling mistake has been or will be identified or corrected. Thank you for your understanding. CHARLEE Biggs 05/27/24 1555 documented in this encounterAdena [facility]09-27-20[facility] Telephone encounter Note* Telephone Encounter - Vivian Siddiqui - 05/15/2024 11:35 AM EDT Images from the original note were not included. Consult from Dr. Jeremy Magallanes (Internal Medicine) [facility] Referral received [...] completed: 04/08/2024 Barium Swallow 03/21/2024 CT Chest [facility]09-27-2024 Miscellaneous Notes* Telephone Encounter - Vivian Siddiqui - 05/15/2024 11:35 AM EDT Images from the original note were not included. Consult from Dr. Jeremy Magallanes (Internal Medicine) [facility] Referral received [...] were not included. Referral was sent from [facility] for new consult with Dr Tran Please see below and advise [facility] Telephone encounter Note * Telephone Encounter - Keily Martines - 05/14/2024 1:07 PM EDT Images from the original note were not included. Referral was sent from [facility] for new consult with Dr Tran Please see below and advise [facility]09-16-2024 Telephone encounter Note* Telephone Encounter - Cynthia Sanchez - 05/04/2024 9:45 AM EDT Left message on sister's voice mail to contact Dr Magallanes's office for referral. [facility] HospitalEzqyftokwh69-56-1321 Miscellaneous Notes* Telephone Encounter - Cynthia Sanchez [...] referral sent to Dr Ameya Tran at [facility]. He is a gastrologist. The fax number is [phone] . Pt's sister would like a call back at [phone]. documented in this encounterSaint John's Saint Francis HospitalTdqjziymyn18-29-7411 Telephone encounter Note* Telephone Encounter - Malathi Sanchez MD - 05/04/2024 9:27 AM EDT That needs to be done by Dr Magallanes's office [facility] HospitalDpmjmydkoo70-35-8914 Telephone encounter Note* Telephone Encounter - Cynthia Sanchez - 05/04/2024 9:15 AM EDT Pt's sister called in. She said her brother would like a referral sent to Dr Ameya Trna at [facility]. He is a gastrologist. The fax number is [phone] . Pt's sister would like a call back at [phone]. [facility] HospitalGfpkemcetj72-99-4617 History of Present illness Narrative* Malathi Sanchez MD - 04/07/2024 10:30 AM EDT Subjective Patient ID: Alex Ziegler is a 63 y.o. male who presents for Neck Mass (CT @ [facility] 02/26>[facility]) Pt reports he is getting [...] resolved. F/U if recurs documented in this [facility]02-14-2024 Telephone encounter Note* Telephone Encounter - Maris Tavera - 10/02/2023 1:35 PM EST No attempts to hear back; closing referral. [facility] HospitalHtcgxoiveg75-25-0400 Miscellaneous Notes* Telephone Encounter - Maris Tavera - 10/02/2023 1:35 PM EST No attempts to hear back; closing referral. documented in this [facility]01-26-2024 Evaluation note* Encounter Date Diagnosis Assessment Notes Treatment Notes Treatment Clinical Notes Aug, Chronic obstructive pulmonary disease, unspecified (ICD-10 - J44.9) Finish antibiotics and prednisone as prescribed. Denies pulmonary referral at this time. Hasn't smoked since 09/08 and declines chantix or patches. Aug,urrent smoker (ICD-10 - F17.200) [employer] Other 01-23-2024 Evaluation note* Encounter Date Diagnosis Assessment Notes Treatment Notes Treatment Clinical Notes Aug, Lumbar radicular pain (ICD-10 - M54.16) [employer] Other 01-19-2024 Evaluation note* Encounter Date Diagnosis Assessment Notes Treatment Notes Treatment Clinical Notes Aug, Lumbar radicular pain (ICD-10 - M54.16) [employer] Other 12-26-2023 Evaluation note* Encounter Date Diagnosis Assessment Notes Treatment Notes Treatment Clinical Notes Jul, Type 2 diabetes britton itus with hyperglycemia, without long-term current use of insulin (ICD-10 - E11.65) [employer] Other 12-26-2023 Evaluation note* Encounter Date Diagnosis [...] T3s after shoulder pain has improved post-operatively. [employer] Other 12-04-2023 Evaluation note* Encounter Date Diagnosis Assessment Notes Treatment Notes Treatment Clinical Notes Jul, Type 2 diabetes britton itus with hyperglycemia, without long-term current use of insulin (ICD-10 - E11.65) [employer] Other 12-01-2023 Evaluation note* Encounter Date Diagnosis Assessment Notes Treatment Notes Treatment Clinical Notes Jul, Type 2 diabetes britton itus with hyperglycemia, without long-term current use of insulin (ICD-10 - E11.65) [employer] Other 11-30-2023 Evaluation note* Encounter Date Diagnosis Assessment Notes Treatment Notes Treatment Clinical Notes Jun, Labral tear of shoul shiela, right, subsequent encounter (ICD-10 - S43.431D) [employer] Other 11-14-2023 Evaluation note* Encounter Date Diagnosis [...] chest pain (ICD-10 - R07.9)r/o cardiac cause [employer] Other 11-07-2023 Evaluation note* Encounter Date Diagnosis [...] to decrease dose and possibly discontinue medication. [employer] Other 11-02-2023 Evaluation note* Encounter Date Diagnosis Assessment Notes Treatment Notes Treatment Clinical Notes Jun, Acute pain of right shoulder (IC D-10 - M25.511) [employer] Other 10-30-2023 Evaluation note* Encounter Date Diagnosis Assessment Notes Treatment Notes Treatment Clinical Notes May, Acute pain of right shoulder (IC D-10 - M25.511) [employer] Other 10-23-2023 Evaluation note* Encounter Date Diagnosis Assessment Notes Treatment Notes Treatment Clinical Notes May, Acute pain of right shoulder (IC D-10 - M25.511) [employer] Other 10-16-2023 Evaluation note* Encounter Date Diagnosis Assessment Notes Treatment Notes Treatment Clinical Notes May, Acute pain of right shoulder (IC D-10 - M25.511) [employer] Other 10-10-2023 Evaluation note* Encounter Date Diagnosis Assessment Notes Treatment Notes Treatment Clinical Notes May, Acute pain of right shoulder (IC D-10 - M25.511) MRI and surgery planning pending. Pt understands this is a controlled substance and to call in 1 week w update on treatment plan. May,ronchitis (ICD-10 - J40)Finish antibiotic, rest, hydrate Steroids for wheezing. [employer] Other 10-04-2023 Evaluation note* Encounter Date Diagnosis Assessment Notes Treatment Notes Treatment Clinical Notes May, Acute pain of right shoulder (IC D-10 - M25.511) Reviewed [place] and discussed short term plan of increase in pain medication. He is due for a refillof the T3s presently. Stop them, replace w norco. Pt understands weekly prescription and will need to d/c after anticipated surgery. [employer] Other 09-12-2023 Evaluation note* Encounter Date Diagnosis [...] office and the ER visit on 04/26 [employer] Other 07-05-2023 Evaluation note* Encounter Date Diagnosis [...] cymbalta and willneed less prn pain med. [employer] Other 06-01-2023 Evaluation note* Encounter Date Diagnosis Assessment Notes Treatment Notes Treatment Clinical Notes Jan, RUQ pain (ICD-10 - R10.11) Discussed differential. continues to decline c-scope. start w labs and GBUS. Jan,Other chronic pain (ICD-10 - G89.29) Jan,ain in right shoulder (ICD-10 - M25.511)Pt requests referral to Dr. Jesus - [facility] for intrarticular injections. Jan,ain in left shoulder (ICD-10 - M25.512)as above. [employer] Other 04-17-2023 Evaluation note* Encounter Date Diagnosis Assessment Notes Treatment Notes Treatment Clinical Notes Nov, Bronchitis (ICD-10 - J40) [employer] Other 04-11-2023 Evaluation note* Encounter Date Diagnosis Assessment Notes Treatment Notes Treatment Clinical Notes Nov, Disc degeneration, lumbar (ICD-1 0 - M51.36) Nov,Lumbar radicular pain (ICD-10 - M54.16) [employer] Other 04-07-2023 Evaluation note* Encounter Date Diagnosis [...] quit smoking. Pt verbalizes understanding and agreement. [employer] Other 02-15-2023 Evaluation note* Encounter Date Diagnosis Assessment Notes Treatment Notes Treatment Clinical Notes Sep, Lumbar radicular pain (ICD-10 - M54.16) [employer] Other 01-17-2023 Evaluation note* Encounter Date Diagnosis [...] is outlined on the test result page. [employer] Other 10-20-2022 NoteIndication: Calculus in kidney. Comparison: [...] Electronically authenticated by: JOHN PINTO Date: 2022-06-07 20:07[facility]* Encounter Date Diagnosis Assessment [...] of infection, hardware pullout, cuff repair failure, nursing home pain and stiffness are well known [...] of repair, infection and wound healing delays. [employer] Other 04-26-2022 NotePROCEDURE: XR SHOULDER LT 2V or > COMPARISON: None. HISTORY: Pain of left shoulder joint FINDINGS: BONES:No acute fracture or dislocation. 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 No visible soft tissue swelling. EFFUSION:None visible. OTHER: Negative. IMPRESSION: Mild osteoarthritis Electronically authenticated by: BARBIE MEMBRENO Date: 2021-12-12 15:25[facility]* Encounter Date Diagnosis Assessment Notes [...] pain of left shoulder (ICD-10 - M25.512) [employer] Other 10-08-2021 Evaluation note* Encounter Date Diagnosis [...] as needed for cough. Advised patient that [place] contains antihistamine and cough suppressant and to be cautious using other OTC cold medications. Patient to follow upwith PCP if symptoms do not improve. Immediate eval if SOB, difficulty breathing, chest pain, dizziness, or other concerning symptoms. Patient verbalizes understanding and is agreeable to treatment plan [employer] Other Evaluation + Plan note No data available for this section [facility]Evaluation noteNo InformationNortWernersville State [facility] [employer] Other Evaluation note* Diagnosis Onset Date Resolution Status Arthralgia acuteLumbar painacuteType II diabetes mellitusacute [facility] Work Phone: Evaluation note* Diagnosis Onset Date Resolution Status Arthralgia acuteLumbar painacuteType II diabetes mellitusacuteBilateral hip painacute [facility] Work Phone: Evaluation note* Diagnosis Onset Date Resolution Status Arthralgia acuteLumbar painacuteType II diabetes mellitusacuteBilateral hip painacuteLumbar painacute [facility] Work Phone: Evaluation note* Diagnosis Onset Date Resolution Status Submandibular abscess acuteChronic obstructive pulmonary disease, unspecifiedacuteEsophageal abnormalityacuteMass of left submandibular regionacute [facility] Work Phone: Evaluation note* Diagnosis Onset Date Resolution Status Chronic obstructive pulmonary disease, u nspecified acuteEsophageal abnormalityacuteMass of left submandibular regionacute [facility] Work Phone: Evaluation note* Diagnosis Onset Date Resolution Status 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Hiatal herniaacute [facility] Work Phone: Evaluation note* Diagnosis Esophageal dysphagia- Primary Dysphagia, pharyngoesophageal phase Neck mass Swelling, mass, or lump in head and neck documented in this encounter [facility]* Diagnosis Dysphagia, unspecified type- Primary Black stools Nonspecific abnormal finding in stool contents Gastroesophageal reflux disease, unspecified whether esophagitis present Abnormal esophagram documented [facility] Diagnosis Dysphagia, unspecified type Black stools Nonspecific abnormal finding in stool contents documented in this encounter [facility]* Diagnosis Onset Date Resolution Status Admit Date Chronic coughing acuteOctober 2024 1:27pm [facility] Work Phone: History general Narrative - Reported* Type Description Date Medical History Asthma Medical Historyskin cancer-lipSurgical HistoryLeft lung [id number] HistoryL4 and L5 disc [id number] Historyright lip basal cell cancer [id number] Historycarpal tunnel [id number] History tonsillectomyHospitalization History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Hospitalization Historypneumonia [employer] Other Hospital Discharge instructions No data available for this section [facility] Discharge instructionsAmbulatory Orders* Referral to ENT Time Frame: 03/18/24, Location: None Selected [facility] Work Phone: Hospital Discharge instructionsAmbulatory Orders* Referral to Urology Time Frame: 10/15/24, Location: None [facility] Work Phone: InstructionsNot on filedocumented in this encounter [facility] SystemInstructionsNot on filedocumented in this encounter [facility] SystemInstructionsNot on filedocumented in this encounter [facility] SystemProgress note No data available for this section [facility] HospitalReason for referral (narrative)No reason for referral information availableWilson Health Work Phone: Summary Purpose Family History Relationship [...] Epigastric abdominal pain (R10.13) Referral Organization [facility] omar Referring Provider First Name Jeremy Referring Provider Last Name Sona Referring Provider Specialty [facility] Celframe Referred Organization [facility] Referred Provider Sai Martinez Referred Address ,[place], [place],[address] Referred Provider Specialty Surgery Referral Priority Routine General Notes Es Camilo 11:38:02 AM >received today, attachments made, notes locked, referral faxed Reason 01/28/23 Access Or tho - B shoulder pain L>R - hopes for injections. Diagnosis 1 Pain in right should er (M25.511) Referral Organization [facility] [employer] [facility] omar Referring Provider First Name Jeremy Referring Provider Last Name Sona Referring Provider Specialty [facility] [employer] Referred Organization [facility] Referred Provider Barbie Jesus Referred Address ,[place], [place],[address] Referred Provider Specialty Orthopaedic Surgery Referral Priority [...] in right should er (M25.511) Referral Organization [facility] Lisha nelson Referring Provider First Name Jeremy Referring Provider Last Name Sona Referring Provider Specialty [facility] Referred Organization [facility] Referred Provider Barbie Jesus Referred Address ,[place], [place],[address] Referred Provider Specialty Orthopaedic Surgery Referral Priority [...] reinier.ReasonCommentsNew PatientCare Coordinator - OtherReasonCommentsNeck MassCT @ [facility] 02/26>NOMSReasonCommentspostive cologuard LAST COLONOSCOPY WAS OVER 20 YEARS AGO.Difficulty SwallowingNauseaVomiting Abdominal PainRUQ PAIN (unrecognized sect ion and content) No Status Records FoundNo Status Records FoundNo Status Records FoundNo Status Records FoundNo Status Records FoundNo Status Records FoundNo Status Records FoundNo Status Records Found INFORMATION SOURCE (unrecogn ized section and content) DATE CREATED AUTHOR 12/04/2022 [facility] DATE CREATED AUTHOR AUTHOR'S ORGANIZ ATION 04/08/2024 [facility] DATE CREATED AUTHOR AUTHOR'S ORGANIZ ATION 05/23/2024 [facility] DATE CREATED AUTHOR AUTHOR'S ORGANIZ ATION 05/29/2024 [facility] DATE CREATED AUTHOR AUTHOR'S ORGANIZ ATION 06/12/2024 [facility] DATE CREATED AUTHOR AUTHOR'S ORGANIZ ATION 11/06/2024 [facility] DATE CREATED AUTHOR AUTHOR'S ORGANIZ ATION 11/11/2024 [facility] DATE CREATED AUTHOR AUTHOR'S ORGANIZ ATION 05/29/2025 [...] 2023 Team Status: Active Member Role Status Glroia Magallanes MD Primary Care Provider Active Start: October 08, 2023 Sai Davies ProviderActiveStart: October 08, 2023 Team Status: Active Member Role Status Dates Jeremy Magallanes MD Primary Care Provider Active Start: October 23, 2023 Sai Davies ProviderActiveStart: October 23, 2023 Team MemberRelationshipSpecialtyStart DateEnd Date Jeremy Magallanes MD [address] [place] [facility] [place] [phone] PCP - Generalmily Medicine01/23/23 Team Status: Inactive Member Role Status Dates Jeremy Magallanes MD Attending Provider Active St art: September 13, 2023 End: September 13, 2023Team MemberRelationshipSpecialtyStart DateEnd Date Jeremy Magallanes MD [address] [facility] [place] [phone] Referringmily Medicine05/12/24Team MemberRelationshipSpecialtyStart DateEnd Date Jeremy Magallanes MD [address] [place] [facility] [place] [phone] [facility]/23Team MemberRelationshipSpecialtyStart DateEnd Date Jeremy Magallanes MD [address] [place] [facility] [place] [phone] PCP - Generalmily Medicine01/23/23Team MemberRelationshipSpecialtyStart DateEnd Date Jeremy Magallanes MD [address] [facility] [place] [phone] [facility] - [facility]01/23/23Team MemberRelationshipSpecialtyStart DateEnd Date Jeremy Magallanes MD [address] [place] [address] PCP - [facility]06/03/19Team MemberRelationshipSpecialtyStart Date End Date Jeremy Magallanes MD [address] [place] [address] PCP - [facility]06/03/19Team MemberRelationshipSpecialtyStart Date End Date Jeremy Magallanes MD [address] [place] [address] PCP - [facility]06/03/19Team MemberRelationshipSpecialtyStart Date End Date Jeremy Magallanes MD [address] [place] [address] PCP - [facility]06/03/19 Team Status: Active Member Role Status Dates [...] DateEnd Date Jeremy Magallanes MD [facility] - [facility]01/23/23 Goals (unrecognized section and content) Goals may be documented in a n alternate section Source Comments (unrecognize d section and content) In the event this informatio n is protected by the Federal Confidentiality of Alcohol and Drug Abuse Patient Records regulations: The Federal rules restrict any use of the information to criminally investigate or prosecute any alcohol or drug abuse patient.[facility] FOR RECORDS PERTAINING TO PATIENTS WHO [...] BE BASED ON THE PRIMARY CLINICAL RECORDS. [facility]. provides no warranty or guarantee of the accuracy or completeness of information in this document.
--- NOTE | 2025-06-24 08:24 | PM.CN ---
Consult Note: HPI Data of Consult Patient: known to practice within the last 3 years Consult date: 05/05/25 Requesting Physician: Janneth Villalta NP Primary Care Provider: Hannah Gallo MD Consult Narrative Reason for consult: right flank and thoracic pain Narrative: Nicholas Ziegler a pleasant 64 year old male presents for evaluation of chronic right middle and low back pain, has had persistent lumbar and thoracic pain >12 months unresponsive to >6 weeks of PT/HEP, heat, ice, tylenol, and allergy to NSAIDs. Pain today 8/10 deep ache, increasing with standing, walking, pushing, pulling, pending, lifting. pain improved mildly with sleep, tylenol #3 and flexeril. pt noting drowsiness with flexeril. recently underwent thoracic MRI with results below. on underwent right T9,10,11 intercostal nerve RFA with initially significant relief, however over the last week patient has had increased pain. he was evaluated in the ER and they ruled out complications and kidney stone. pt interested in a trigger point injection for significant myofascial pain. he has not found significant beneit to muscle relaxers, heat, ice, stretching, and his TENS unit. cc:: CC: Janneth Villalta NP Review of Systems ROS Musculoskeletal Reports: back pain PFSH [facility] Medical History Melanoma ?C43.9 - Malignant melanoma of skin, unspecified (ICD-10) Tobacco user ?Z72.0 - Tobacco use (ICD-10) Type 2 diabetes mellitus with hyperglycemia ?E11.65 - Type 2 diabetes mellitus with hyperglycemia (ICD-10) Acute exacerbation of chronic obstructive pulmonary disease (COPD) ?J44.1 - Chronic obstructive pulmonary disease with (acute) exacerbation (ICD-10) Lumbar degenerative disc disease ?M51.36 - Other intervertebral disc degeneration, lumbar region (ICD-10) Influenza ?J11.1 - Influenza due to unidentified influenza virus with other respiratory manifestations (ICD-10) Acute bronchospasm ?J98.01 - Acute bronchospasm (ICD-10) Postoperative pain, acute, shoulder ?G89.18 - Other acute postprocedural pain (ICD-10) ?M25.519 - Pain in unspecified shoulder (ICD-10) Fever ?R50.9 - Fever, unspecified (ICD-10) Acute pain of right shoulder ?M25.511 - Pain in right shoulder (ICD-10) Rotator cuff arthropathy of right shoulder ?M12.811 - Other specific arthropathies, not elsewhere classified, right shoulder (ICD-10) Diabetes ?E11.9 - Type 2 diabetes mellitus without complications (ICD-10) COPD (chronic obstructive pulmonary disease) ?J44.9 - Chronic obstructive pulmonary disease, unspecified (ICD-10) Surgical History H/O colonoscopy ?Z98.890 - Other specified postprocedural states (ICD-10) History of carpal tunnel release ?Z98.890 - Other specified postprocedural states (ICD-10) H/O lumbosacral spine surgery ?Z98.890 - Other specified postprocedural states (ICD-10) S/P right rotator cuff repair ?Z98.890 - Other specified postprocedural states (ICD-10) Family History Other Family history of COPD (chronic obstructive pulmonary disease) Family history of cancer Family history of hypertension Social History Within the past year, how often did you have a drink containing alcohol: never Score interpretation: A score less than 4 is consistent with normal alcohol consumption. Smoking status: Current every day smoker Non-prescribed substance use: denies use Previous occupational history: retired Highest level of school completed/degree received: GED or equivalent Are you now , , , , never or living with a partner: In a typical week, how many times do you talk on the telephone with family, friends, or neighbors: 3 or more times per week How often do you get together with friends or relatives: 3 or more times per week How often do you attend mormonism or confucianist services: never Do you belong to any clubs or organizations such as mormonism groups unions, fraternal or athletic groups, or school groups: no Total score: 2 Score interpretation: A score of greater than or equal to 2 indicates the lowest level of social isolation. Little interest or pleasure in doing things: not at all Feeling down, depressed, or hopeless: not at all Feel stressed/tense/nervous/anxious/difficulty sleeping: not at all Do you think of yourself as: straight/heterosexual Gender Identity: male Meds Home Medications and Allergies Home Medications ?Medication ?Instructions ?Recorded ?Confirmed ?Type glipizide 5 mg-metformin 500 mg 1 tab PO BID 08/23/23 05/24/25 History tablet lancets (Accu-Chek Fastclix Lancet 09/08/23 09/08/23 History Drum) albuterol sulfate 90 mcg/actuation 2 puff inhalation Q6H PRN 06/01/24 05/24/25 History aerosol inhaler shortness of breath or wheezing acetaminophen 300 mg-codeine 30 mg See Rx Instructions .Route 09/09/24 05/24/25 Rx tablet .COMPLEX PRN pain #180 tabs ondansetron 4 mg disintegrating mg 04/05/25 History tablet cyclobenzaprine 10 mg tablet 10 mg PO HS 05/25/25 05/25/25 History omeprazole 40 mg capsule,delayed 40 mg PO DAILY 05/25/25 05/25/25 History release methocarbamol 750 mg tablet 750 mg PO Q8H #20 tabs 06/19/25 Rx acetaminophen 300 mg-codeine 30 mg See Rx Instructions .Route 06/24/25 Rx tablet .COMPLEX PRN pain #180 tabs Allergies Allergy/AdvReac Type Severity Reaction Status Date / Time ibuprofen (From Motrin) AdvReac Mild Hives Verified 06/19/25 20:17 Exam Constitutional Documenting provider has reviewed patient's vital signs: yes Common normals: no apparent distress, oriented x3, healthy appearing, alert and well nourished General appearance: cooperative [facility] Common normals: normocephalic, hearing grossly normal bilaterally and moist oral mucous membranes Head and scalp: normocephalic Eye Common normals: PERRL Pupil: PERRL Neck & C-Spine Common normals: full ROM General: normal visual inspection Chest Common normals: inspection of chest normal Respiratory Common normals: normal respiratory effort, no retractions and no use of accessory muscles Back & Pelvis Thoracic spine/upper back: pain with ROM and thoracic spinal tenderness Lumbar spine/lower back: ROM limited, pain with ROM, paraspinal muscle tenderness, paraspinal muscle spasm Lumbar paraspinal muscle spasm: right and straight leg raise negative bilaterally Sacroiliac joints: SI joints normal Other: sensation intact BLE strength 5/5 in BLE significant myofascial spasming and trigger points noted to right paralumbar spine in latissimus dorsi Back image (male):  1. numerous trigger points noted Extremity Common normals: normal to inspection and full ROM Neuro Common normals: oriented x3 Sensorium/orientation: alert Psych Common normals: mental status grossly normal, thought process normal, cooperative, affect normal, speech normal and activity/motor behavior normal Speech: normal speech Thought process: normal thought process Results Imaging thoracic mri: Attestation: I have reviewed the pertinent imaging results. Radiologist's impression: The thoracic vertebral body heights, alignment and bone marrow signal is unremarkable. The thoracic cord demonstrates normal signal and morphology. Mild hypertrophic changes and ligamentum flavum and facet degeneration notably T4-T5 and at T11-T12. This results in mild canal narrowing at T11-T12. Otherwise no significant disc disease, disc protrusion, central canal or neural foraminal narrowing identified elsewhere. Paraspinal soft tissues are unremarkable. Additional Findings Additional findings: If on a controlled substance or opioids, I have checked an OARRS report on this patient and there are no aberrancies noted in the prescribing history.??If on a controlled substance or opioid a drug screen was completed and reviewed within the last year, and if there has not been a drug screen completed we ordered one today to monitor higher risk, state monitored pain medication use. As part of providing excellent, safe, comprehensive care, the following was completed at our patient's visit: 1. A medication reconciliation and review to ensure accurate knowledge of current/active medications, including asking our patients to inform us about any kocc-xgb-qsyekzb medications or herbal remedies/nutritional supplements/alternative remedies. 2. A review to specifically ensure our patients have had annual screening for screening for depression, screening for tobacco use, and screening for unhealthy alcohol use. For concerning screenings had a discussion with the patient, provided patient education, and recommended follow-up with primary care provider when appropriate. If patient noted with a risk of falling, they received education on strength, gait, and balance training to prevent future risk of falling. Portions of this note may have been carried over from the previous visit and updated as appropriate. Please note this office utilizes paper charting in addition to the electronic medical record. A list of current medications, vitals, and PMH is available there as the clinical staff outside of myself do not have access to [employer] charting during the clinic day operations. As part of providing quality comprehensive care the current medications, vitals, and PMH were reviewed in the paper chart. Assessment and Plan Assessment and Plan (1) Myalgia, other site: Assessment and Plan: OPERATION:?right latissimus dorsi trigger point injection for myalgia other site COMPLICATIONS:?None. 10ccs containing bupivacaine 0.25% and depo-medrol 40mg DESCRIPTION OF PROCEDURE:?The procedure risks, hazards and alternatives were discussed with the patient and a proper consent was obtained. The area over the myofascial spasm was prepped with alcohol utilizing sterile technique. After isolating it between two palpating fingertips a 25-gauge 1.5 needle was placed in the center of the myofascial spasms and a negative aspiration was performed. Then 1cc of bupivacaine 0.25% and depo-medrol was injected into each trigger point x6. The patient tolerated the procedure well without any apparent difficulties or complications. They were feeling relief by the time the block had set.. (2) Intercostal neuralgia: Assessment and Plan: The patient has had over 3 months of moderate to severe right flank and thoracic pain with functional impairment and inadequate response to conservative care including NSAIDS (unless there are contraindication such as concurrent blood thinners), multiple oral or topical pain medications, and home exercise program/physical therapy.? Patient has completed >6 weeks of guided home exercise program and/or formal physical therapy program without relief of their symptoms.? I have reviewed the imaging of the thoracic and lumbar spine and no red flags were identified.? The Oswestry Disability Index was completed, and the patient scored a 40%.? The patient noted the following:?? moderate to severe pain impacting ADLs, sitting, standing, sleeping, social life, travel (3) Right flank pain, chronic: (4) Failed back syndrome: (5) Chronic prescription opiate use: Assessment and Plan: I feel these medications are improving the patient's quality of life and allow them to tolerate activities of daily living as well as participate in recreational activity.? The patient does not report intolerable side effects. The patient is NOT opioid naive and non-pharmacologic and non-opioid treatment has failed to significantly relieve the patient's pain and improve functionality. The patient has a diagnosis that is related to a somatic or visceral pain etiology. ? ?? I reviewed with the patient the potential risks and side effects with the use of? opioid medications including but not limited to respiratory depression,? sedation, and even . Within the last 12 months I have verified the patient has access to naloxone should? these effects occur. The patient was advised to let? their family know they had Naloxone in case they would need to administer? the medication. I advised the patient to avoid the use of any other? sedation substances including alcohol, THC, and benzodiazepines while? taking opioid medications due to the risk of compounding side effects and? detrimental outcomes. within the last 12 months I have reviewed the CRACKING MACHINE OPERATOR, pain treatment agreement and urine drug screen.? ?? A drug screen was completed within the last year, and no aberrancies were noted regarding their use of controlled substances. The patient understands they are subject to the terms and conditions of the pain contract that they have signed. ? ?? I have checked an OARRS report on this patient today and there are no aberrancies noted in the prescribing history.? Plan right T9,10,11 intercostal RFA remains in healing phase right paralumbar tpi performed as noted above, pt noted at least 50% improvement in pain after procedure encouraged TENS, will order a zynex tens unit to be utilizes 15minutes PRN for pain/spasms to low back consider scs trial in the future stop flexeril, restart baclofen 5-10mg bid prn pain/spasms continue tylenol #3 1-2 tabs tid prn moderate to severe pain cannot take NSAIDs due to baretts esophagus continue HEP as tolerated f/u within 1 month to evaluate response to RFA and above therapies
== END 2025-06-24 07:51 | disposition home or self-care (01) ==
LOC: PM 07:50
PROVIDERS: PCP Family Medicine; Visit Provider Nurse Practitioner
DX: M79.18 Myalgia, other site (principal); R10.31 Right lower quadrant pain; M96.1 Postlaminectomy syndrome, not elsewhere classified; Z79.891 Long term (current) use of opiate analgesic
CPT/HCPCS: 20552; J0665; J1010

== ENCOUNTER 2025-07-28 07:50 | Outpatient (OUT) | payer MEDICARE, MEDICAID, SELFPAY ==
--- OUTSIDE RECORDS SUMMARY | 2025-07-28 07:54 | XMS_ITS | Clinical Summary ---
Author Organization [employer] Address [id number] [address] [place] [address] Care Team Providers Care Printed Circuit Boards Pinner Name Role Phone Hannah Gallo MD Primary Care Provider [phone] Allergies Active AllergyReactionsCriticalityNoted DateCommentsIbuprofenHives,RashLow 06/03/2019 hives Iodinated Contrast MediaHives,PqjoNwk1406/03/2019 hives Medications MedicationSigDispense QuantityRefillsLast FilledStart DateEnd DateStatus [...] of Binge DrinkingNot on file06/03/2019ChildcareAnswerDate RecordedChildcareUnknown 06/01/2019EmploymentAnswerDate JuewcykkCkgtlgrbxyVbxmeka35/14/2019Purpose - Life AnswerDate RecordedPurpose and direction in vildFrxipum07/11/2021ex and Gender InformationValueDate RecordedSex Assigned at BirthNot on fileLegal SexMale 06/01/2019 10:38 AM EDTGender IdentityNot on fileSexual OrientationNot on file Last Filed Vital Signs Vital SignReadingTime TakenCommentsBlood Pressure--Pulse--Temperature-- Respiratory Rate--Oxygen Saturation--Inhaled Oxygen Concentration--Thqccm907.3 kg (230 lb)05/27/2024 2:56 PM RIOSxvdpb308.3 cm (5' 9 )05/27/2024 2:56 PM EDT Body Mass Index33.9705/27/2024 2:56 PM EDT Plan of Treatment Health MaintenanceDue DateLast DoneCommentsDepression Qlhzyjtvg88/04/1972Zoster (Shingles) Vaccine (1 of 2)2010DTaP,Tdap and Td Vaccines (1 - Tdap) , 05/25/2015Influenza Czhepzv22, 05/17/2017, 05/16/2017, Additional history existsFall Risk Ckubfhage97/04/2025 Adult BMI Ohukfzyxa58Tobacco Snjfzwwcs51/4RSV ( or age 60+ yrs) (1 - 1-dose 75+ series)2035 [employer] Not on file Insurance Care Teams Team MemberRelationshipSpecialtyStart DateEnd Date Hannah Gallo MD [address] [place] [id number] PCP - GeneralFamily Pzrilxbp59/16/19
--- OUTSIDE RECORDS SUMMARY | 2025-07-28 07:54 | XMS_ITS | Clinical Summary ---
Author Organization [facility] Address [address] [place] [address] Care Team Providers Care Shoemaking Finisher Name Role Phone Hannah Gallo MD Primary Care Provider [phone] Allergies Active AllergyReactionsCriticalityNoted DateCommentsDuloxetine HclGI intolerance 04/07/20246879Crdgfufg16/31/2024 Other Reaction(s): Hives GlejsjzogTefmUod58/16/2019 hives Iodinated Contrast FqbtpGvjkUwt48/16/2019 hives Cazjfraat64/31/2024 Other Reaction(s): Hives Katebruojd16/31/2024 Other Reaction(s): shortness of breath Fbemhzirui26/31/2024 Other Reaction(s): shortness of breath Medications MedicationSigDispense QuantityRefillsLast FilledStart DateEnd DateStatus glipiZIDE-metFORMIN (Metaglip) 5-500 MG tablet Take 2 tablets by mouth in the morning and 2 tablets before bedtime.07/19/2023 Active acetaminophen-codeine (Tylenol w/ Codeine #3) 300-30 MG tablet Take 1 tablet by mouth every 6 (six) hours if mxwvsn9310/03/2023ctive tiZANidine (Zanaflex) 4 MG tablet Take 4 mg by mouth every 6 (six) hours if needed for muscle bxehsi9010/14/2023 Active Active Problems ProblemNoted DateDiagnosed DateLiver mass04/07/2024Kidney cysts04/07/2024Neck mass04/07/20248238Ujemniergh10/13/2024hronic obstructive pulmonary disease, yovazcnlizg91/13/2024Lumbar pain03/31/2024Mass of left submandibular region 03/31/2024Type II diabetes jvyvveis82/13/2024ositive colorectal cancer screening using Cologuard test03/27/2023Epigastric pain03/27/2023allbladder polyp03/27/2023Esophageal grrveuhbx07/09/2023rthritis of left acromioclavicular joint03/25/2023Incomplete tear of left rotator cuff03/25/2023Internal derangement of left foogxcvf86/07/2023Rotator cuff arthropathy of left shoulder 01/28/2023Rotator cuff impingement syndrome of right pcyealpf98/12/2023 Immunizations ImmunizationAdministration DatesNext DueInfluenza, injectable, MDCK, preservative free, pzysouxjjoba57/15/2018Influenza, injectable, quadrivalent, preservative free05/16/2017,06/28/2016Influenza, seasonal, injectable, preservative [...] SodaSex and Gender InformationValueDate RecordedSex Assigned at DkqqxSxgi26/03/2024 9:53 AM ESTLegal ZkwUkze1412/17/2022 8:35 PM EDTGender YtiugaxbRyvw69/03/2024 9:53 AM ESTSexual OuhwkglgjwgIaswpxsx11/03/2024 9:53 AM EST Last Filed Vital Signs Vital SignReadingTime TakenCommentsBlood Oqxtuyau910/8808/ 10:04 AM EDT Pulse--Dgtyathfdtl89.2 ??C (97.2 ??F)06/03/2023 8:17 AM EDTRespiratory Rate-- Oxygen Saturation--Inhaled Oxygen Concentration--Cohkmd787 kg (235 lb)04/07/2024 10:04 AM BZLPgnpll763.3 cm (5' 11 )04/07/2024 10:04 AM EDTBody Mass Index32.78 04/07/2024 10:04 AM EDT Plan of Treatment Not on file Insurance Care Teams Team MemberRelationshipSpecialtyStart DateEnd Date Hannah Gallo MD PCP - GeneralFamily Medicine01/23/23
--- OUTSIDE RECORDS SUMMARY | 2025-07-28 07:54 | XMS_ITS | Clinical Summary ---
Author Organization [facility] Address [address] [place] [address] Care Team Providers Care Rn Transport Name Role Phone Unavailable Primary Care Provider Unavailabl e Source Comments The following information is NOT included in Care Everywhere downloads:Psychiatric notes, ECG results, Cardiac Rehab notes, Pulmonary Function notes, data from [facility] (includes but not limited toPregnancy data,audiograms, eye exams, pre-surgical evaluation notes, well-child exam data).[facility] Family History Medical HistoryRelationNameCommentsNeurologic DiseaseOthernoRelationNameStatus CommentsOther Social History Tobacco UseTypesPacks/DayYears UsedDateSmoking Tobacco: Every DayCigarettes Alcohol UseStandard Drinks/WeekCommentsNo0 (1 standard drink = 0.6 oz pure alcohol)Substance UseTypesUse/WeekCommentsNoSex and Gender InformationValueDate RecordedSex Assigned at BirthNot on fileLegal ShtKkef39/04/2012 9:49 AM EST Gender IdentityNot on fileSexual OrientationNot on file Last Filed Vital Signs Vital SignReadingTime TakenCommentsBlood Tgehulvw279/7803 10:45 AM EDT Dzcau730811/14/2010 10:45 AM IVWOasmfldkbvc59.6 ??C (97.9 ??F)11/14/2010 10:45 AM EDTRespiratory Rate--Oxygen Saturation--Inhaled Oxygen Concentration--Weight 103.3 kg (227 lb 12.8 oz)11/14/2010 10:45 AM EDTHeight--Body Mass Index-- Plan of Treatment Health MaintenanceDue DateLast DvrtLrrzqqhnUxvtrggnkxg1960Hepatitis C Clvfejzn54/04/1978Tdap Ejpxmqo9905/22/1978Hepatitis A (HAV) Vaccine (optional start 19+ years)1979Tetanus (Td or Tdap) Zibjewl9305/22/1979Cholesterol 1995CRC Chcmaxaoz48/04/2005Cologuard (Stool DNA)2005FIT2005 Pneumococcal Vaccine(s) (50+ yrs) (1 of 1 - PCV)2010Shingles (RZV) Vaccine (1 of 2)2010Hepatitis B (HBV) Vaccine (optional start 60+ years)2020 COVID-19 Vaccine (1 - 2024-26 season)2025Influenza Vaccine (#1)2025 Abdominal Aortic Aneurysm Ktljwmm9905/22/2025RSV vaccine (adult) (1 - 1-dose 75+ series)[address] [place] [address]
--- OUTSIDE RECORDS SUMMARY | 2025-07-28 07:54 | XMS_ITS | Clinical Summary ---
Author Organization [facility] Address [address] [place] [address] Care Team Providers Care Black Oxide Operator Name Role Phone Hannah Gallo MD Unavailable [phone] Social History Tobacco UseTypesPacks/DayYears UsedDateSmoking Tobacco: Never AssessedSex and Gender InformationValueDate RecordedSex Assigned at BirthNot on fileLegal Sex Male07/20/2012 8:58 AM ESTGender IdentityNot on fileSexual OrientationNot on file Plan of Treatment Not on file Insurance Care Teams Team MemberRelationshipSpecialtyStart DateEnd Date Hannah Gallo MD [address] [place] [address] ReferringFamily Medicine05/12/24
--- OUTSIDE RECORDS SUMMARY | 2025-07-28 07:55 | XMS_ITS | CCD ---
Author Organization [facility] Care Team Providers Care Equipment Driver Name Role Phone Ronnie Kesha Unavailable Chepe Harriet Unavailable Jeremy Magallanes Unavailable SONA, DR JEREMY Jovel Admitting Unavailable MAGALLANES, DR JEREMY Jovel Attending Unavailable MAGALLANES, DR JEREMY Jovel Primary Care Unavailable MAGALLANES, DR JEREMY Jovel Consulting Unavailable TAVERASRUBI Consulting Unavailable OLEXA, KESHA Admitting Unavailable OLEXA, KESHA Attending Unavailable MAGALLANES, DR JEREMY Jovel Primary Care Unavailable SEAGRAVES, DR BARBIE Goldberg Consulting Unavailable OLEXA, KESHA [...] Physician Jeremy Magallanes MD Primary Care Provider [phone] WILLIE, BARBIE Tellez Attending Unavailable POCOS, BARBIE Tellez Referring Unavailable POCOS, BARBIE Tellez Attending Unavailable MALATHI SANCHEZ Attending Unavailable JEREMY MAGALLANES Referring Unavailable POCDORON, JIN Attending Unavailable Jeremy Magallanes MD Unavailable [phone] PRIYANKA BENITES Attending Unavailable JEREMY MAGALLANES [...] Care Provider Jeremy Magallanes MD Attending Provider Jeremy Magallanes MD Primary Care Provider Allergies Allergy ClassificationReported Allergen(s)Allergy TypeDate of OnsetReaction(s) Facility (20 sources)IbuprofenDrug AllergyhiTeeBeeDee Other (20 sources)olodaterol / tiotropiumDrug Allergyshortness of breathSeward [employer] Other (20 sources)CT Scan dyePropensity to adverse reactionshiPWRF [employer] Other (14 sources)Ibuprofen; Translations: [IBUPROFEN]Drug Anoncub95-54-5568wqmuhHla [facility] (2 sources)Iodine (And Iodine Containting Drugs)Drug allergy (disorder) 30-85-3364Apj [facility] Rep[facility] (1 source)NSAIDsDrug allergy (disorder)[facility] Rep[facility] (20 sources)fentaNYLDrug Ljayzyz93-15-3921UxrmgllAvita Health System [facility] (14 sources)IbuprofenDrug Lvzjjju75-47-6533UnemChristian Hospital (20 sources)OfloxacinDrug Yhcdzot92-29-5407EeutkowAvita Health System Bucyrus [facility] (3 sources)zafirlukastDrug Mbujhsv87-55-2644GkydsllXqnym [employer] Other (20 sources)Zafirlukast *ANTIASTHMATIC AND BRONCHODILATOR AGENPropensity to adverse reactionsThree Rivers Healthcare [employer] Other (20 sources)Ibuprofen & Diet Manage Prod *ANALGESICS - ANTI-INPropensity to adverse reactionsThree Rivers Healthcare [employer] Other (3 sources)Allergies ReconciledPropensity to adverse reactionsThree Rivers Healthcare [employer] Other (20 sources)Iodinated contrast media (substance)Drug ivdjnuw45-69-8988Juod, [facility] [employer] Other (3 sources)patient allergy list reviewed by nurse or physiciaPropensity to adverse ypigkzjjn56-76-0274Hsljeod:[facility] [employer] Other (17 sources)olodaterolDrug Ctrifop86-86-6745thivshmciMercy Health Tiffin Hospital (17 sources)tiotropiumDrug Ruqhdzo32-49-9022uzssjebhxTrumbull Regional Medical Center (12 sources)Iodinated Contrast Media; Translations: [IODINATED CONTRAST MEDIA] Allergy to ucsdorxvm20-82-4875CtynjQgbnbirniKindred Hospital [facility] (11 sources)Ibuprofen & Diet Manage Prod *Allergy to -01-2477MtqvqMount St. Mary HospitalComment on above:Free Text Allergy: Ibuprofen & Diet Manage Prod *ANALGESICS - ANTI-IN (11 sources)Zafirlukast *ANTIASTHMATIC ANDAllergy to zachhlgun84-93-8991TghouMount St. Mary HospitalComment on above:Free Text Allergy: Zafirlukast *ANTIASTHMATIC AND BRONCHODILATOR AGEN (5 sources)DULoxetineDrug Tbsgupn53-17-9865BV [facility] (3 sources)cefdinirDrug Zksdpjp30-75-5834HuigoxliUkrzzovamMetroHealth Main Campus Medical CenterComment on above:nausea, vomiting Medications Current Medications MedicationDrug Class(es)DatesSig (Normalized)Sig (Original)acetaminophen 300 mg / codeine phosphate 30 mg oral tablet (20 sources)Opioid AgonistStart: 23-89-8325koyh 1 tablet by mouth twice daily as neededAcetaminophen-Codeine 300-30 mg tablet Active 1 TAB PO Twice daily as needed February 16, 2025 12:00amComplies with drug therapyStart: 12-05-2023 End: 49-44-6684svuh 1 tablet by mouth every eight hours as needed for pain Acetaminophen-Codeine 300-30 mg tablet Discontinued 1 TAB PO Every 8 hours as needed for pain 90 30April 2023 1:56pm February 16, 2025 2:48pmStart: 10-03-2023 End: 13-58-5397xthq 1 tablet by mouth every six hours as neededacetaminophen- codeine (Tylenol w/ Codeine #3) 300-30 MG tablet Take 1 tablet by mouth every 6 (six)hours if needed 10/03/2023 ActiveStart: 50-39-6954dozi 1 tablet by mouth every six hoursAcetaminophen-Codeine 300-30 MG 1 tablet as needed Orally every 6 hrs for 30 days Aug, ActiveStart: 81-15-1735bwso 1 tablet by mouth every six hoursAcetaminophen-Codeine 300-30 MG 1 tablet as needed Orally every 6 hrs for 30 days Aug, ActiveStart: 67-29-0959dmne 1 tablet by mouth every six hours as neededAcetaminophen-Codeine #3 300-30 MG 1 tablet as needed Orally every 6 hrs for 30 days Apr, ActiveStart: 57-24-8179uwyc 1 tablet by mouth every six hoursAcetaminophen-Codeine #3 300-30 MG 1 tablet as needed Orally every 6 hrs for 30 days Apr, ActiveStart: 90-86-1021wypc 1 tablet by mouth every six hoursAcetaminophen-Codeine #3 300-30 MG 1 tablet as needed Orally every 6 hrs for 30 days Mar, ActiveStart: 19-44-2046vjnh 1 tablet by mouth every six hoursAcetaminophen-Codeine #3 300-30 MG 1 tablet as needed Orally every 6 hrs for 30 days Feb, ActiveStart: 46-15-4372fyer 1 tablet by mouth every six hoursAcetaminophen-Codeine #3 300-30 MG 1 tablet as needed Orally every 6 hrs for 30 days Feb, ActiveStart: 32-61-5009fypg 1 tablet by mouth every six hoursAcetaminophen-Codeine #3 300-30 MG 1 tablet as needed Orally every 6 hrs for 30 days Jan, ActiveStart: 99-41-0841cceo 1 tablet by mouth every six hoursAcetaminophen-Codeine #3 300-30 MG 1 tablet as needed Orally every 6 hrs for 30 days December, ActiveStart: 55-20-1955qafr 1 tablet by mouth every six hoursAcetaminophen-Codeine #3 300-30 MG 1 tablet as needed Orally every 6 hrs for 30 days Nov, ActiveStart: 10-31-2022 Acetaminophen-Codeine #4 300-60 MG 2 Orally bid prn for 30 days Oct, ActiveStart: 47-00-5880Osjvcundgogjg-Codeine #4 300-60 MG 2 Orally bid prn [...] as needed Orally every 6 hrs Active [id number] 200 actuat albuterol 0.09 mg/actuat metered dose inhaler (20 sources)beta2-Adrenergic AgonistStart: 01-12-2025 End: 28-80-7859mgbh 2 puff(s) by inhalation every four hours as neededAlbuterol Sulfate 90 mcg/actuation HFA aerosol inhaler Active 0 .ROUTE .COMPLEX 8.5 May 27, 2025 2:24pm INHALE 2 PUFFS EVERY 4 HOURS NEEDED FOR WHEEZE OR FOR SHORTNESS OF BREATH Complies withdrug therapyStart: 05-01-2024 End: 07-53-0997oonb 1 puff(s) by inhalation every four hours as needed for wheezingAlbuterol Sulfate 90 mcg/actuation HFA aerosol inhaler Discontinued 2 PUFF INHALATION Every 4 hoursas needed for shortness of breath or wheezing 8.5 October 09, 2024 4:35pm January 12, 2025 12:22pmStart: 06-25-2023 End: 57-58-5842gopp 2 puff(s) by inhalation every four hoursalbuterol HFA 90 mcg/act inhaler Inhale 2 puffs every 4 (four) hours if needed 06/25/2023 04/07/2024 Discontinued (Therapy completed)Start: 67-11-4823msbx 2 puff(s) by inhalation every four hours as neededAlbuterol Sulfate HFA 108 (90 Base) MCG/ACT 2 puff Inhalation every 4 hrs prn Aug, ActiveStart: 50-36-2103moer 2 puff(s) by inhalation every four hours as neededAlbuterol Sulfate HFA 108 (90 Base) MCG/ACT 2 puff Inhalation every 4 hrs prn Jun, ActiveStart: 09-57-5919rtxi 2 puff(s) by inhalation every four hours [...] 125 mg oral tablet (6 sources)Penicillin-class AntibacterialStart: 21-87-4686ucsg 1 tablet by mouth every twelve hoursAmoxicillin-Pot Clavulanate 875-125 MG 1 tablet Orally every 12 hrs for 10 day(s) Oct, Activeazithromycin 250 mg oral tablet (20 sources)Macrolide AntimicrobialStart: 54-67-5991Ezzxpskxfsja 250 mg tablet Active 0 PO .COMPLEX 6 May 31, 2025 2:12pm For 250 mg dose pack: take 500 mg today (day 1), then 250 mg for 4 days (days 2-5) PO Complies with drug therapyStart: 12-24-2024 End: 66-15-2035Hwohkjwcqaxb 250 mg tablet Discontinued 0 PO .COMPLEX 6 December 24, 2024 12:00am January 21, 2025 9:38amFor 250 mg dose pack: take 500 mg today (day 1), then 250 mg for 4 days (days 2-5) POStart: 06-17-2024 End: 28-74-7594Asezdzjyvbgm 250 mg tablet Discontinued 0 PO .COMPLEX 6 June 17, 2024 12:00am July 23, 2024 11:29am For 250 mg dose pack: take 500 mg today (day 1), then 250 mg for 4 days (days 2-5) POStart: 79-08-0994Zdupfbqqilct Active 0 PO .COMPLEX 6 June 17, 2024 12:00am For 250 mg dose pack: take 500 mg today (day 1), then 250 mg for 4 days (days 2-5) POStart: 12-20-2023 End: 68-21-6892Ugtswbrrgnia 250 mg tablet Discontinued 0 PO .COMPLEX 6 December 20, 2023 12:00am March 03, 2024 12:09pm For 250 mg dose pack: take 500 mg today (day 1), then 250 mg for 4 days (days 2-5) POStart: 12-20-2023 End: 82-39-1519Fbnjlkwmnxfe Discontinued 0 PO .COMPLEX 6 December 20, 2023 12:00am March 03, 2024 12:09pm For 250 mg dose pack: take 500 mg today (day 1), then 250 mg for 4 days (days 2-5) POStart: 73-46-7797Bntfhykhrhjw 250 MG as directed Orally 2 tabs po today, then 1 tab daily x 4 more days for Sep, Active Start: 70-71-8622Nafxwjjioxmp 250 MG as directed Orally 2 tabs po today, then 1 tab daily x 4 more days for 5 May, ActiveStart: 90-09-3836Qwxgkorvvogk 250 MG as directed Orally 2 tabs po today, then 1 tab daily x 4 more days for 5 Apr, ActiveStart: 48-73-4842Raxforqdmdwb 250 MG as directed Orally 2 tabs po today, then 1 tab daily x 4 more days for 5 Nov, Active cetirizine hydrochloride 10 mg oral capsule (5 sources)Histamine-1 Receptor AntagonistStart: 09-14-2999tanj 1 capsule by mouth twice daily as neededCetirizine (Zyrtec) 10 mg capsule Active 10 MG PO Twice daily as needed October 15, 2024 1:00am Complies with drug therapy gabapentin 800 mg oral tablet (1 source)Anti-epileptic AgentStart: 04-64-4801bixcxzaqny (Neurontin) 800 MG tabletglipiZIDE 5 mg / metFORMIN hydrochloride 500 mg oral tablet (20 sources)Biguanide, SulfonylureaStart: 10-22-2024 End: 41-39-2385jncb 2 tablets by mouth twice dailyGlipizide-Metformin 5-500 mg tablet Active 0 .ROUTE .COMPLEX 360 April 21, 2025 10:31am TAKE 2TABLETS BY MOUTH TWICE DAILY Complies with drug therapyStart: 22-69-4906kyha 2 tablets by mouth in the morningglipiZIDE-metFORMIN (Metaglip) 5-500 MG tablet Take 2 tablets by mouth in the morning and 2 tabletsbefore bedtime. 07/19/2023 Active Start: 07-19-2023 End: 47-16-2478yvhb 2 tablets by mouth twice dailyGlipizide-Metformin 5-500 [...] mg oral tablet (20 sources)Start: 01-21-2025 End: 93-16-5969xhhc 4 tablets by mouth once daily, then [...] days Complies with drug therapyStart: 12-22-2024 End: 89-75-5640eisr 1 tablet by mouth twice dailyPrednisone 20 mg tablet Discontinued 20 MG PO Twice daily December 22, 2024 12:00am January 21, 2025 9:39am Start: 06-17-2024 End: 60-97-2486lndk 1 tablet by mouth twice dailyPrednisone 20 mg tablet Discontinued 20 MG PO Twice daily August 28, 2024 2:19pm October 15, 2024 10:03amStart: 23-83-7524txynggNGCU 10 MG 4 tabs po daily x 2 days, 3 tabs daily x 2 days, 2 tabs daily x 2 days, 1 tab daily x 2 days Orally Once a day for 8 Apr, ActiveStart: 61-57-9888ashy 2 tablets by mouth every twenty- four hourspredniSONE 20 MG 2 tablets Orally Once a day for 5 days Nov, ActivepredniSONE 20 MG TAKE 3 TABLETS BY MOUTH DAILY X 3 DAYS, 2 TABLETS DAILY X 3 DAYS, 1 TABLET DAILY X3 DAYS for 9 Activerosuvastatin calcium 20 mg oral tablet (1 source)HMG-CoA Reductase InhibitorStart: 16-39-9222qnyu 1 tablet by mouth once dailyRosuvastatin 20 mg tablet Active 20 MG PO Daily March 13, 2025 12:00am Complies with drug therapytiZANidine 4 mg oral tablet (7 sources)Central alpha-2 Adrenergic AgonistStart: 98-93-1983uhzx 1 tablet by mouth every six hours as neededtiZANidine (Zanaflex) 4 MG tablet Take 4 mg by mouth every 6 (six) hours if needed for muscle spasms 10/14/2023 ActiveStart: 87-05-1048espm 1 tablet by mouth at bedtime as neededtiZANidine (Zanaflex) 4 MG tablet TAKE 1/2-1 TABLET BY MOUTH AT BEDTIME NEEDED FOR SPAMS 0 04/23/2023 Active Completed/Discontinued Medications MedicationDrug Class(es)DatesSig (Normalized)Sig (Original)acetaminophen 325 mg / HYDROcodone bitartrate 10 mg oral tablet (20 sources)Opioid AgonistStart: 12-04-2023 End: 26-57-3845erer 1 tablet by mouth every six hours as neededStart: 08-13-2023 take 1 tablet by mouth every six hoursStart: 58-53-6642ryjr 1 tablet by mouth every six hoursHYDROcodone-Acetaminophen 10-325 MG 1 tablet as needed Orally every 6 hrs for 30 days Jul, ActiveStart: 91-55-2562mmzi 1 tablet by mouth every six hoursHYDROcodone-Acetaminophen 10-325 MG 1 tablet as needed Orally every 6 hrs for 30 days Jul, ActiveStart: 01-53-4084bkcr 1 tablet by mouth every six hoursHYDROcodone-Acetaminophen 10-325 MG 1 tablet as needed Orally every 6 hrs for 30 days Jul, ActiveStart: 19-04-7234fbud 1 tablet by mouth every six hoursHYDROcodone-Acetaminophen 10-325 MG 1 tablet as needed Orally every 6 hrs for 30 days Jun, ActiveStart: 70-56-6626ktmf 1 tablet by mouth every six hoursHYDROcodone-Acetaminophen 10-325 MG 1 tablet as needed Orally every 6 hrs for 7 days May, ActiveStart: 99-33-5176kmyx 1 tablet by mouth every six hoursHYDROcodone-Acetaminophen 10-325 MG 1 tablet as needed Orally every 6 hrs for 7 days May, ActiveStart: 03-00-1663gtqa 1 tablet by mouth every six hoursHYDROcodone-Acetaminophen 10-325 MG 1 tablet as needed Orally every 6 hrs for 7 days May, ActiveStart: 97-73-8331fxog 1 tablet by mouth every six hoursHYDROcodone-Acetaminophen 10-325 MG 1 tablet as needed Orally every 6 hrs for 7 days May, ActiveStart: 37-92-9237XTOUQnyaytp- acetaminophen (Advance) 10-325 MG tabletStart: 06-42-2671cycw 1 tablet by mouth every six hoursHYDROcodone-Acetaminophen 10-325 MG 1 tablet as needed Orally every 6 hrs for 7 days May, Activeatorvastatin 20 mg oral tablet (20 sources)HMG-CoA Reductase InhibitorStart: 10-23-2023 End: 11-25-6066cfnz 1 tablet by mouth once dailyAtorvastatin 20 mg tablet Discontinued 0 .ROUTE .COMPLEX 90 October 23, 2023 3:27pm December 1649:20am TAKE 1 TABLET BY MOUTH EVERY DAY FOR 30 DAYSStart: 10-23-2023 End: 46-15-0202vtqj 1 tablet by mouth once dailyAtorvastatin 20 mg tablet Discontinued 20 MG PO Daily October 23, 2023 1:00am October 23, 2023 3:27pmStart: 16-64-1829ebofciylnbij (Lipitor) 20 MG tabletcefdinir 300 mg oral capsule (4 sources)Cephalosporin AntibacterialStart: 12-22-2024 End: 02-98-9023nuzg 1 capsule by mouth twice dailyCefdinir 300 mg capsule Discontinued 300 MG PO Twice daily December 22, 2024 12:00am December 24, 2024 8:18am dextromethorphan hydrobromide 30 mg / pyrilamine maleate 30 mg oral tablet (5 sources)Uncompetitive N-oriuez-B-aspartate Receptor Antagonist, Sigma-1 AgonistStart: 04-32-4251uhhy 1 tablet by mouth every eight hoursCapron DMT 30-30 MG 1 tablet Orally every 8 hours for 7 days May, Not-TakingDULoxetine 60 mg delayed release oral capsule (20 sources)Serotonin and Norepinephrine Reuptake InhibitorStart: 02-19-2024 End: 33-48-6146eqrp 1 capsule by mouth once dailyDuloxetine 60 mg capsule,delayed release(DR/EC) Discontinued 0 .ROUTE .COMPLEX February 19, 2024 8:39am March 18, 2024 9:00am TAKE 1 CAPSULE BY MOUTH EVERY DAY FOR 90 DAYS Start: 11-12-2023 End: 68-60-6031cgok 1 capsule by mouth once dailyDuloxetine 60 mg capsule,delayed release(DR/EC) Discontinued 60 MG PO Daily February 19, 2024 12:00am February 19, 2024 8:39amStart: 80-83-4614gnre 1 capsule by mouth every twenty-four hoursCymbalta 60 MG 1 capsule Orally Once a day for 30 days Feb, ActivelevoFLOXacin 500 mg oral tablet (2 sources)Quinolone AntimicrobialStart: 01-21-2025 End: 56-70-8050dkyy 1 tablet by mouth once dailyLevofloxacin 500 mg tablet Discontinued 500 MG PO Daily January 21, 2025 12:00am February 16, 2025 3:03pm methylPREDNISolone 4 mg oral tablet (20 sources)CorticosteroidStart: 10-15-2024 End: 88-46-0547lyps 1 tablet by mouth onceMethylprednisolone (Medrol (Boris)) 4 mg tablets,dose pack Discontinued 0 PO per package directions October 15, 2024 1:00am December 22, 2024 8:24am PO PER PKG DIR for 6 daysStart: 12-06-2023 End: 76-97-6469Znhawxdbsjrfuufhqk 4 mg tablets,dose pack Discontinued 0 PO per package directions December 06, 2023 12:00am December 17, 2023 9:20am PO PER PKG DIR for 6 daysStart: 12-06-2023 End: 98-91-3837Iofsvpncxrgnfrmugs Discontinued 0 PO per package directions December 06, 2023 12:00am November 9:20am PO PER PKG DIR for 6 daysStart: 14-63-2385azarouNUWELOLmgvfn 4 MG as directed Orally for 6 days Sep, ActiveStart: 42-32-6019chfkdnVTJAOMQjurey 4 MG as directed Orally for 6 days May, ActiveStart: 01-59-5742Mwphte (Boris) 4 MG as directed Orally for daily dose take half with breakfast half with dinner for 6days May, Not-Taking 24 hr nicotine 0.583 mg/hr transdermal system (2 sources)Cholinergic Nicotinic AgonistStart: 03-03-2024 End: 94-18-3790wesrp 1 dose transdermal route once daily, then apply 1 dose transdermal route every twenty-four hoursNicotine (Nicoderm Cq) 14 mg/24 hr patch 24 hour Discontinued 1 PATCH TRANSDERML Daily March 03, 2024 12:00am March 18, 2024 9:00amNicotine (Nicoderm Cq) 14 mg/24 hr patch 24 hour (7 sources)Start: 03-03-2024 End: 47-50-7330uefrn 1 dose transdermal route once daily, then apply 1 dose transdermal route every twenty-four hoursNicotine (Nicoderm Cq) 14 mg/24 hr patch 24 hour Discontinued 1 PATCH TRANSDERML Daily March 02, 2024 11:00pm March 18, 2024 8:00amStart: 03-03-2024 End: 36-86-3037cwfjl 1 dose transdermal route once daily, then apply 1 dose transdermal route every twenty-four hoursNicotine (Nicoderm Cq) 14 mg/24 hr patch 24 hour Discontinued 1 PATCH TRANSDERML Daily March 03, 2024 12:00am March 18, 2024 9:00amStart: 25-35-5195iocrs 1 dose transdermal route once daily, then apply 1 dose transdermal route every twenty-four hoursNicotine (Nicoderm Cq) 14 mg/24 hr patch 24 hour Active 1 PATCH TRANSDERML Daily March 032:00amomeprazole 40 mg delayed release oral capsule (19 sources)Proton Pump InhibitorStart: 07-23-2024 End: 55-70-2219wtlb 1 capsule by mouth once dailyOmeprazole 40 mg capsule,delayed release(DR/EC) Discontinued 40 MG PO Daily September 18, 2024 4:28pm January 21, 2025 9:39amStart: 07-23-2024 End: 84-00-2035kxgh 1 capsule by mouth twice dailyOmeprazole 40 mg capsule,delayed release(DR/EC) Discontinued 40 MG PO Twice daily July 23, 2024 1:00am July 23, 2024 11:55amStart: 84-50-2868zedw 1 capsule by mouth in the morningomeprazole (PriLOSEC) 40 mg capsule Indications: Gastroesophageal reflux disease, unspecified whether esophagitis present Take 1 capsule (40 mg total) by mouth in the morning. 60 capsule 05/27/2024 Activeondansetron 4 mg disintegrating oral tablet (20 sources)Serotonin-3 Receptor AntagonistStart: 95-41-1430eigevceperl ODT (ZOFRAN ODT) 4 mg disintegrating tablet Dissolve 1 tablet (4 mg total) on tongue once. 04/27/2024 ActiveStart: 04-27-2024 End: 82-67-5604iwcn 1 tablet by mouth every eight hoursOndansetron 4 mg tablet,disintegrating Discontinued 4 MG PO Q8H December 07, 2024 4:32pm January 21, 2025 9:39amtriamcinolone acetonide 40 mg/ml injectable suspension (20 sources)CorticosteroidStart: 79-02-2604Pnfpqdv-40 Nov, 40 mgStart: 78-32-7721Vnkgyme -40 mg Nov, 40 mg Problems Active Problems Problem ClassificationProblemDateDocumented DateEpisodic/ChronicAbdominal hernia (7 sources)Hiatal hernia; Translations: [Diaphragmatic hernia without obstruction or gangrene]96-63-3947HrajbeslKydnx bronchitis (9 sources)Acute bronchitis; Translations: [Acute bronchitis due to other specified organisms]Onset: 97-68-4606AbrritycWocwdebl reactions (5 sources)Urticaria; Translations: [Urticaria, unspecified]18-35-4990Ajikhbjo Anxiety disorders (3 sources)Anxiety disorder; Translations: [Other specified anxiety disorders] Onset: 11-29-6487AhztfhcFhuaxf (20 sources)Mild intermittent asthma; Translations: [Mild intermittent asthma, uncomplicated]Onset: 11-03-6147IaviwxwHblbtbq obstructive pulmonary disease and bronchiectasis (20 sources)Chronic obstructive lung disease; Translations: [Chronic obstructive pulmonary disease, unspecified]Onset: 46-35-1474FloxfwrKmdteci obstructive pulmonary disease and bronchiectasis (20 sources)Bronchitis, not specified as acute or chronic; Translations: [Bronchitis]Onset: 05-26-2021 Resolved: 68-76-9421EkjbxrptMbqbvbvv mellitus with complications (20 sources)Hyperglycemia due to type 2 diabetes mellitus; Translations: [Type 2 diabetes mellitus with hyperglycemia]Onset: 53-13-6419FjpjuwkHqkkuown mellitus without complication (20 sources)Type 2 diabetes mellitus without complications; Translations: [Type 2 diabetes mellitus without complication]Onset: hronic Diseases of mouth; excluding dental (9 sources)Abscess of submandibular region; Translations: [Cellulitis and abscess of mouth]29-38-7601PfmzzsmlGsrqjqwm of white blood cells (20 sources)Leukocytosis; Translations: [Other elevated white blood cell count] ChronicDisorders of teeth and jaw (3 sources)Jaw pain; Translations: [Jaw pain]EpisodicEsophageal disorders (20 sources)Gastroesophageal reflux disease without esophagitis; Translations: [Gastro-esophageal reflux disease without esophagitis]Onset: 05-27-2024 42-34-2727TosdhrcPxxozdrhru disorders (10 sources)Disorder of esophagus; Translations: [Disease of esophagus, unspecified]30-84-6334ZfvbcsidGalqzqkodlizl symptoms and ill-defined conditions (3 sources)Blood in urine; Translations: [Hematuria, unspecified]Episodic Hyperplasia of prostate (10 sources)Large prostate ; Translations: [Benign prostatic hyperplasia without lower urinary tract symptoms]22-64-1709DvstuzdKprkqmzqcjaun (11 sources)Acute lymphadenitis; Translations: [Acute lymphadenitis, unspecified]Onset: 986115-81-9546ReqqfuykPhdrytx and fatigue (3 sources)Fatigue; Translations: [Other fatigue]EpisodicNausea and vomiting (2 sources)Nausea; Translations: [Vomiting]Onset: 12-52-4541WmadffjiLuqeslqfgga chest pain (8 sources)Chest pain, unspecified; Translations: [Chest pain]Onset: 10-05-2015 EpisodicOsteoarthritis (20 sources)Osteoarthritis of joint of left shoulder region; Translations: [Primary osteoarthritis, left shoulder]Onset: 12-12-2021 Resolved: 49-17-9101VpzybhgVhjoy connective tissue disease (20 sources)Supraspinatus tear; Translations: [...] sources)Diverticulum of bladder; Translations: [Diverticulum of bladder] 47-83-2279TnojlblPmmec diseases of bladder and urethra (2 sources)Diverticulum of bladder; Translations: [Diverticulum of bladder] 42-84-7566YuuxlqbZwcft gastrointestinal disorders (1 source)Other fecal abnormalitiesEpisodicOther gastrointestinal disorders (3 sources)Abnormal feces; Translations: [Other fecal abnormalities]Episodic Other gastrointestinal disorders (1 source)Dysphagia, unspecified; Translations: [Dysphagia, unspecified]Onset: 10-85-2935TvgilsraLswse injuries and conditions due to external causes (5 sources)Contusion; Translations: [Other injury of unspecified body region, initial encounter]88-85-1618OemqqzsbFlmgx injuries and conditions due to external causes (2 sources)Other injury of unspecified body region, initial encounter; Translations: [Contusion of unspecifiedsite]48-84-9703ZmpbuofzIjlab liver diseases (20 sources)High enzyme level in serum; Translations: [Abnormal levels of other serum enzymes]EpisodicOther lower respiratory disease (20 sources)Dyspnea; Translations: [Shortness of breath]EpisodicOther lower respiratory disease (2 sources)Chronic cough; Translations: [Chronic cough]58-82-9057ThbrinwwIgldh nervous system disorders (4 sources)Other chronic pain; Translations: [OTHER CHRONIC PAIN]Onset: 50-84-3851VxymlyyDscwv nervous system disorders (20 sources)Chronic pain; Translations: [Other chronic pain]ChronicOther non- traumatic joint disorders (20 sources)Derangement of left shoulder joint; Translations: [Other specific joint derangements of left shoulder, not elsewhere classified]Onset: 03-25-2023 90-03-6265LxamggaRcwtq non-traumatic joint disorders (4 sources)Other specific joint derangements of left shoulder, not elsewhere classified; Translations: [OTH SPEC JOINT DERANG LT SHLDR NEC]Onset: 02-02-2022 ChronicOther non-traumatic joint disorders (7 sources)Rotator cuff arthropathy of left shoulder; Translations: [Other specific arthropathies, not elsewhere classified, left shoulder]Onset: [id number] non-traumatic joint disorders (8 sources)Pain in left shoulder; Translations: [PAIN IN LEFT SHOULDER]Onset: 12-12-2021 Resolved: 03-52-4111ZghgxqzfZoqqg non-traumatic joint disorders (9 sources)Pain in right shoulderEpisodicOther non-traumatic joint disorders (3 sources)Pain in unspecified joint; Translations: [Pain in joint, site unspecified]16-89-7882BzvzqbztAmhwb non-traumatic joint disorders (10 sources)Hip pain; Translations: [Pain in right hip]64-68-8622LwcwikfaGwcci non-traumatic joint disorders (2 sources)Pain in right hip; Translations: [Pain in joint, pelvic region and thigh]30-49-4059OvzvkguvLsyzv nutritional; endocrine; and metabolic disorders (20 sources)Body mass index 40+ - severely obese; Translations: [Body mass index (BMI) 45.0-49.9, adult]ChronicOther nutritional; endocrine; and metabolic disorders (3 sources)Obese class I; Translations: [Body mass index (BMI) 32.0-32.9, adult] ChronicOther nutritional; endocrine; and metabolic disorders (3 sources)Obesity; Translations: [Obesity, unspecified]Onset: 58-10-0774Fugjpdl Other screening for suspected conditions (not mental disorders or infectious disease) (8 sources)Barium swallow abnormal; Translations: [Abnormal findings on diagnostic imaging of other parts of digestive tract]92-58-4216YhhutbofPkjtb skin disorders (3 sources)Localized swelling, mass and lump, head; Translations: [Swelling, mass, or lump in head and neck]06-30-9560WhuoqopbDvskn upper respiratory disease (20 sources)Chronic rhinitis; Translations: [Chronic rhinitis]ChronicOther upper respiratory disease (3 sources)Seasonal allergic rhinitis; Translations: [Other seasonal allergic rhinitis]ChronicOtitis media and related conditions (3 sources)Otitis media; Translations: [Otitis media, unspecified, unspecified ear]EpisodicResidual codes; unclassified (20 sources)H/O: asbestos exposure; Translations: [Contact with and (suspected) exposure to asbestos]Onset: 63-03-6834DzdtsqakNuihxlgkw and history of mental health and substance abuse codes (1 source)Ex-smoker; Translations: [Personal history of nicotine dependence] 45-17-2034GviwoyqaUkiomvcwgxy; intervertebral disc disorders; other back problems (20 sources)Degeneration of lumbar intervertebral disc; Translations: [Other intervertebral disc degeneration, lumbar region]Onset: 62-19-7776WxoxrwzXrnvgsf and strains (2 sources)Superior glenoid labrum lesion of right shoulder, subsequent encounterEpisodicSubstance-related disorders (20 sources)Smoker; Translations: [Nicotine dependence, unspecified, uncomplicated]Onset: 02-06-2022 Resolved: 14-45-0200LcqmwydIbecbxyzljyx (1 source)postive cologuardOnset: 38-15-8287Dhumqsodkzjv (1 source)Emotional state findingOnset: 05-27-2024 Past or Other Problems Problem ClassificationProblemDateDocumented DateEpisodic/ChronicAbdominal pain (20 sources)Right upper quadrant pain; Translations: [Right upper quadrant pain] Onset: 07-44-8259GhygxaabSvhbgoz tract disease (20 sources)Chronic cholecystitis due to gallbladder calculus with obstruction; Translations: [Calculus of gallbladder with chronic cholecystitis with obstruction]Onset: 479378-69-6452QxpolywgLbislovvf and vision defects (4 sources)Other visual disturbances; Translations: [OTHER VISUAL DISTURBANCES] Onset: 49-00-7776HeozbfpmTcydtcsg of urinary tract (1 source)Personal history of urinary calculi; Translations: [PERSONAL HISTORY OF URINARY CALCULI]Onset: 19-23-6075NxliujdnZojnjkagig and other anemia (3 sources)Iron deficiency anemia; Translations: [Iron deficiency anemia, unspecified]Onset: 85-65-2225TpsanerdFfhpozzi mellitus without complication (3 sources)Hyperglycemia; Translations: [Hyperglycemia, unspecified]Onset: 02-12-7431GvmpxqftZaiejesbzuytldav hemorrhage (20 sources)Rectal hemorrhage; Translations: [Hemorrhage of anus and rectum] Onset: 452517-54-8346LtybzzhsPgtvcysgxflo breast conditions (3 sources)Pain of breast; Translations: [Mastodynia]Onset: 08-96-8583Wivqcxpr Other aftercare (1 source)Other fci (current) drug therapy; Translations: [OTH LEGAL AIDE CURRENT DRUG THERAPY]Onset: 59-79-3620NoufayumSktar connective tissue disease (1 source)Unspecified rotator cuff tear or rupture of left shoulder, not specified as traumaticOnset: 02-06-2022 Resolved: 91-58-1614CpgmmkrgFtxpw connective tissue disease (1 source)Complete rotator cuff tear or rupture of left shoulder, not specified as traumaticOnset: 12-12-2021 Resolved: 18-21-8288HfgwabmmXncuz connective tissue disease (1 source)Unspecified disorder of synovium and tendon, left shoulderOnset: 12-12-2021 Resolved: 81-73-7400HhuwhoqyDfpgf connective tissue disease (7 sources)Rotator cuff impingement syndrome; Translations: [Impingement syndrome of right shoulder]Onset: 663847-03-4881VwjtheuxAetmt connective tissue disease (7 sources)Partial thickness rotator cuff tear; Translations: [Incomplete rotator cuff tear or rupture of leftshoulder, not specified as traumatic]Onset: 917880-91-8418ZhpmtulwIhyvg diseases of kidney and ureters (5 sources)Cyst of kidney; Translations: [Cyst of kidney, acquired]Onset: 513037-22-6275TzmtudryPogxn ear and sense organ disorders (3 sources)Impacted cerumen; Translations: [Impacted cerumen]Onset: 03-13-2018 EpisodicOther gastrointestinal disorders (20 sources)Dysphagia; Translations: [Dysphagia, unspecified]13-24-2714Ioiohahj Other gastrointestinal disorders (7 sources)Stool DNA-based colorectal cancer screening positive; Translations: [Other fecal abnormalities]Onset: 759385-40-7900XcivorxkDxxxy gastrointestinal disorders (9 sources)Esophageal dysphagia; Translations: [Other dysphagia]Onset: 571850-86-1457TsxbsqotTxlto liver diseases (12 sources)Liver mass; Translations: [Hepatomegaly, not elsewhere classified] Onset: 409489-46-3760AzqzhlkxTkiax non-traumatic joint disorders (17 sources)Joint pain; Translations: [Pain in unspecified joint]Onset: 862948-43-5049HbdfktzyFmfwy skin disorders (14 sources)Mass of submandibular region; Translations: [Localized swelling, mass and lump, head]Onset: 441839-17-9064IbbuilyzZergj skin disorders (7 sources)Mass of neck; Translations: [Localized swelling, mass and lump, neck] Onset: 756181-86-2902YmxsacsiKqzanwaup (except that caused by tuberculosis or sexually transmitted disease) (3 sources)Pneumonia; Translations: [Pneumonia, unspecified organism]Onset: 71-26-6282OsmfwlhrRrkenambhqc; intervertebral disc disorders; other back problems (20 sources)Radiculopathy, lumbar region; Translations: [Dorsalgia, unspecified] Onset: 43-52-8720XrxqqoynMuxcdan (3 sources)Syncope and collapse; Translations: [Syncope and collapse]Onset: 72-89-2044Ouskyrbm Results Test NameValueInterpretationReference RangeFacilityLaboratory - Chemistry and Chemistry - challengeon 78-96-5891Pcklfro [Moles/Vol]2.6 mmol/LCritically high 0.4-2.0[facility] CenterComment on above:RESULTS CALLED TO ROSEMARY SRINIVASAN RN at 0220Basophils Auto (Bld) [#/Vol]on 67-57-0143Zskaabxpa (Bld) [#/Vol]Automated basophil count0.0-0.1FFairfield Medical Center Basophils (Bld) [#/Vol]0.0 10 3/uL0.0-0.1FFairfield Medical Center Basophils/100 WBC Auto (Bld)on 23-23-5487Tntplvkir/100 WBC (Bld)Automated basophil %0.2-2.0[facility] CenterBasophils/100 WBC (Bld)0.6 % 0.2-2.0[facility] CenterBasophils/100 WBC Manual cnt (Bld)on 30-64-2847Nitgunveu/100 WBC (Bld)Basophils/100 leukocytes in Blood by Manual countLow0.2-2.0[facility] CenterBasophils/100 WBC (Bld)0.0 %Low 0.2-2.0[facility] CenterEosinophils/100 WBC Auto (Bld)on 89-39-4917Tbhchrxunko/100 WBC (Bld)Automated eosinophil %0.9-7.0[facility] CenterEosinophils/100 WBC (Bld)2.0 %0.9-7.0[facility] CenterEosinophils/100 WBC Manual cnt (Bld)on 30-12-0218Lwduugtvprk/100 WBC (Bld)Eosinophils/100 leukocytes in Blood by Manual countLow0.9-7.0[facility] CenterEosinophils/100 WBC (Bld)0.0 %Low0.9-7.0[facility] CenterErythrocyte distribution width Auto (RBC) [Ratio]on 66-68-3718Xcozislpqkj distribution width (RBC) [Ratio]13.5 %11.0-15.0[facility] CenterEstimated glomerular filtration rate (GFR) non- Americanon 97-20-3990DCX/1.73 sq M.predicted among non-blacks MDRD (S/P/Bld) [Vol rate/Area]Estimated glomerular filtration rate (GFR) non- Low>=60 mL/min/1.73m 2FFairfield Medical CenterGFR/1.73 sq M.predicted among non-blacks MDRD (S/P/Bld) [Vol rate/Area]59 mL/min/{1.73_m2}Low>=60 mL/min/1.[address]m [address] [place], [place] [address]Globulin Calc (S) [Mass/Vol]on 15-86-0415Bbprmoaj (S) [Mass/Vol]Serum globulin measurement by calculation (mass/volume)[facility] CenterGlobulin (S) [Mass/Vol]3.6 g/dL [facility] CenterGlucose mean value [Mass/volume] in Blood Estimated from glycated hemoglobinon 70-91-8337Mtektue glucose Estimated from glycated hemoglobin (Bld) [Mass/Vol]Glucose mean value [Mass/volume] in Blood Estimated from glycated hemoglobinChillicothe Va Medical CenterAverage glucose Estimated from glycated hemoglobin (Bld) [Mass/Vol]192 mg/dLChillicothe Va Medical CenterHematocrit Auto (Bld) [Volume fraction]on 12-22-2024 Hematocrit (Bld) [Volume fraction]56.3 %High42.0-54.0[facility] CenterHemoglobin A1c percentageon 86-60-6405YmV9p (Bld) [Mass fraction] Hemoglobin A1c percentageHigh4.5-6.2FFairfield Medical CenterComment on above:ADA RECOMMENDED LIMIT 4.0 - 6.0ADA THERAPEUTIC TARGET < 7.0ACTION SUGGESTED> 7.0HbA1c (Bld) [Mass fraction]8.3 %High4.5-6.2FFairfield Medical CenterComment on above:ADA RECOMMENDED LIMIT 4.0 - 6.0ADA THERAPEUTIC TARGET < 7.0ACTION SUGGESTED> 7.0Hemoglobin [Mass/volume] in Bloodon 12-22-2024 Hemoglobin (Bld) [Mass/Vol]18.9 g/wSJvla12.0-18.0[facility] CenterLaboratory - Chemistry and Chemistry - challengeon 58-62-4358Qktltcp [Mass/Vol]4.3 g/dL3.4-5.0[facility] CenterALP [Catalytic activity/Vol]121 U/QWpyy71-196RlorekuzyChillicothe Va Medical CenterALT [Catalytic activity/Vol]46 U/L59-09VqtdeihlfChillicothe Va Medical CenterAST [Catalytic activity/Vol]17 U/S22-54TxvxryjxtChillicothe Va Medical CenterBilirubin [Mass/Vol]0.4 mg/dL0.2-1.0[facility] CenterCalcium [Mass/Vol]9.7 mg/dL 8.5-10.1FFairfield Medical CenterChloride [Moles/Vol]99 mmol/L98-107 [facility] CenterCO2 [Moles/Vol]21.7 mmol/L21.0-32.0[facility] CenterCreatinine [Mass/Vol]1.24 mg/dL0.70-1.30[facility] CenterGFR/1.73 sq M.predicted MDRD (S/P/Bld) [Vol rate/Area] mL/min/{1.73_m2}>=60 mL/min/1.73m 2FFairfield Medical CenterGlucose [Mass/Vol]278 mg/kBOdnd21-347IrjhdrqblChillicothe Va Medical CenterLactate [Moles/Vol]2.3 mmol/LCritically high0.4-2.0[facility] Comment on above:RESULTS CALLED TO KATRINA CABALLERO RN at 0009Lipase [Catalytic activity/Vol]31.0 U/L16.0-77.0[facility] CenterPotassium [Moles/Vol]4.6 mmol/L3.5-5.1FFairfield Medical CenterProtein [Mass/Vol] 7.9 g/dL6.4-8.2FTrinity Health Systemodium [Moles/Vol]133 mmol/LLow 136-145[facility] CenterUrea nitrogen [Mass/Vol]15.0 mg/dL 7.0-18.0[facility] CenterUrea nitrogen/Creatinine [Mass ratio] 12.1 mg/mgChillicothe Va Medical CenterTSH Qn1.532 m[IU]/L0.358-3.740 [facility] CenterLaboratory - Hematology and Cell countson 79-53-2603Edfufxizjqx/100 WBC (Bld)1.0 %Low20.5-60.0[facility] CenterMonocytes/100 WBC (Bld)7.0 %1.7-12.0[facility] Immature granulocytes/100 WBC (Bld)0.2 %0.0-0.5FFairfield Medical Center Leukocytes [#/volume] corrected for nucleated erythrocytes in Blood by Automated counon 67-43-9912PIQ corrected for nucl RBC Auto (Bld) [#/Vol]14.4 10 3/uLHigh 4.0-11.0[facility] CenterLymphocytes Auto (Bld) [#/Vol]on 41-72-7112Jywbcioxehn (Bld) [#/Vol]Lymphocytes [#/volume] in Blood by Automated count1.2-3.8[facility] CenterLymphocytes (Bld) [#/Vol]2.1 10 3/uL1.2-3.8[facility] CenterLymphocytes/100 WBC Auto (Bld)on 37-30-9413Mizzytxnfjl/100 WBC (Bld)Lymphocytes/100 leukocytes in Blood by Automated count20.5-60.0[facility] CenterLymphocytes/100 WBC (Bld)31.7 %20.5-60.0[facility] CenterMCH Auto (RBC) [Entitic mass]on 61-64-8727GYL (RBC) [Entitic mass]29.7 pg25.9-34.0[facility] CenterMCHC Auto (RBC) [Mass/Vol]on 94-88-9342DKBO (RBC) [Mass/Vol]33.6 g/dL29.9-35.2FFairfield Medical CenterMCV Auto (RBC) [Entitic vol]on 68-43-3382EGF (RBC) [Entitic vol]88.5 fL80.0-94.0[facility] CenterMicroalbumin [Mass/volume] in Urineon 35-67-2323Ejlbvrg DL <= 20 mg/L (U) [Mass/Vol]Microalbumin [Mass/volume] in Urine<=30.0[facility] CenterAlbumin DL <= 20 mg/L (U) [Mass/Vol]2.0 mg/dL<=30.0[facility] CenterMonocytes Auto (Bld) [#/Vol]on 77-38-6798Jiutjdpcw (Bld) [#/Vol] Automated blood monocyte count0.3-0.8[facility] CenterMonocytes (Bld) [#/Vol]0.7 10 3/uL0.3-0.8[facility] CenterMonocytes/100 WBC Auto (Bld)on 96-66-3749Cjorcdsvo/100 WBC (Bld)Automated monocyte %1.7-12.0 [facility] CenterMonocytes/100 WBC (Bld)10.7 %1.7-12.0[facility] CenterNeutrophils Auto (Bld) [#/Vol]on 52-79-8496Gknycljehfk (Bld) [#/Vol]Neutrophils [#/volume] in Blood by Automated count1.4-6.5FFairfield Medical CenterNeutrophils (Bld) [#/Vol]3.6 10 3/uL1.4-6.5FFairfield Medical CenterNeutrophils/100 WBC Auto (Bld)on 12-22-2024 Neutrophils/100 WBC (Bld)Automated neutrophil %43.0-75.0[facility] CenterNeutrophils/100 WBC (Bld)54.8 %43.0-75.0[facility] CenterNo Panel Informationon 03-33-8009Cntzskdb Basophils (Manual)0.00 10 3/uL 0.00-0.10[facility] CenterEosinophils # (Manual)0.00 10 3/uL 0.00-0.70[facility] CenterLymphocytes # (Manual)0.14 10 3/uLLow 1.20-3.80[facility] CenterMonocytes # (Manual)1.00 10 3/uLHigh 0.30-0.80Core[facility] Hospitalegmented Neutrophils # (Manual)13.24 10 3/uLHigh1.4-6.5FFairfield Medical CenterTroponin I High Sensitivity <4.0 pg/mLLow4.0-76.1FFairfield Medical CenterComment on above:CUT-OFF POINTS HAVE BEEN [...] DIAGNOSTIC AND CLINICAL INFORMATION.Eosinophils # (Auto)0.1 10 3/uL0.0-0.7FFairfield Medical CenterImmature Granulocyte # (Auto)0.01 10 3/uL0.00-0.03[facility] CenterProstate Specific Antigen Screen0.89 ng/mL<=4.00[facility] CenterUrine Random Niiofvhtke17.28 mg/dL20.00-300.00[facility] CenterPlatelet mean volume Auto (Bld) [Entitic vol]on 75-29-2529Crkcicqp mean volume (Bld) [Entitic vol]9.4 fLLow9.5-13.5FFairfield Medical CenterPlatelets Auto (Bld) [#/Vol]on 79-44-1531Pvovdhmvv (Bld) [#/Vol]319 10 3/eM151-598EgoxiuheyChillicothe Va Medical CenterRBC Auto (Bld) [#/Vol] on 58-83-4654AAF (Bld) [#/Vol]6.36 10 6/uLHigh4.70-6.10Corey Hospitalegmented neutrophils/100 WBC Manual cnt (Bld)on 12-22-2024 Segmented neutrophils/100 WBC (Bld)Manual blood segmented neutrophils/100 byhwgsjpsoRpsk89.0-75.0[facility] Hospitalegmented neutrophils/100 WBC (Bld)92.0 %High43.0-75.0[facility] Serum or plasma albumin/globulin mass ratioon 17-03-0701Zjlrixg/Globulin [Mass ratio]Serum or plasma albumin/globulin mass ratioChillicothe Va Medical CenterAlbumin/Globulin [Mass ratio]1.2 {ratio}[facility] Serum or plasma anion gap determinationon 50-53-4815Kxmjx gap [Moles/Vol]Serum or plasma anion gap determinationChillicothe Va Medical CenterAnion gap [Moles/Vol]16.9 mmol/LFFairfield Medical CenterUrine microalbumin/creatinine mass ratioon 72-78-2622Bhtxvzw/Creatinine DL <= 20 mg/L (U) [Mass ratio]Urine microalbumin/creatinine mass ratio0.0-29.9[facility] CenterComment on above:NO MICROALBUMINURIA 0-29 MG/GCLINICAL MICROALBUMINURIA 30-300 MG/GMACROALBUMINURIA >300 MG/GAlbumin/Creatinine DL <= 20 mg/L (U) [Mass ratio]25.2 mg/g0.0-29.9[facility] Comment on above:NO MICROALBUMINURIA 0-29 MG/GCLINICAL MICROALBUMINURIA 30-300 MG/GMACROALBUMINURIA >300 MG/GCHEMISTRYOrdered By: Sonia Brandt on 22-81-8029IbJ9n (Bld) [Mass fraction]9.5 %High<=5.9%[facility] RqfnLvauWXXfjE3wnv 65-56-6907GrM1d (Bld) [Mass fraction]9.5 %High<=5.9[facility] Comment on above:Performed By: #### [id number] #### [facility] [address], [place] [address]Dwivhitss Auto (Bld) [#/Vol]on 71-26-3818Rzqlyrebt (Bld) [#/Vol]Automated basophil count0.0-0.1FFairfield Medical Center Basophils/100 WBC Auto (Bld)on 32-05-4143Gaupruiuk/100 WBC (Bld)Automated basophil %0.2-2.0[facility] CenterEosinophils/100 WBC Auto (Bld) on 04-41-9966Ldkdrzhkqpj/100 WBC (Bld)Automated eosinophil %0.9-7.0[facility] CenterErythrocyte distribution width Auto (RBC) [Ratio]on 97-32-9640Vlqwwpqbpik distribution width (RBC) [Ratio]Erythrocyte distribution width [Ratio] by Automated count11.0-15.0[facility] Estimated glomerular filtration rate (GFR) non- Americanon 10-11-2024 GFR/1.73 sq M.predicted among non-blacks MDRD (S/P/Bld) [Vol rate/Area]Estimated glomerular filtration rate (GFR) non->=60 mL/min/1.73m 2 [facility] CenterGlobulin Calc (S) [Mass/Vol]on 10-11-2024 Globulin (S) [Mass/Vol]Serum globulin measurement by calculation (mass/volume) [facility] CenterHematocrit Auto (Bld) [Volume fraction]on 57-74-1955Noxyblqggg (Bld) [Volume fraction]Hematocrit [Volume Fraction] of Blood by Automated count42.0-54.0[facility] CenterHemoglobin [Mass/volume] in Bloodon 23-76-9505Mrxmpqzyfb (Bld) [Mass/Vol]Hemoglobin [Mass/volume] in Blood14.0-18.0[facility] CenterLaboratory - Chemistry and Chemistry - challengeon 96-99-0531Amlpvza [Mass/Vol]3.5 g/dL 3.4-5.0[facility] CenterALP [Catalytic activity/Vol]102 U/L 46-116[facility] CenterALT [Catalytic activity/Vol]39 U/L16-63 [facility] CenterAST [Catalytic activity/Vol]13 U/VOoc58-28 [facility] CenterBilirubin [Mass/Vol]0.2 mg/dL0.2-1.0[facility] CenterCalcium [Mass/Vol]9.1 mg/dL8.5-10.1FFairfield Medical CenterChloride [Moles/Vol]102 mmol/K32-477DmrkklldbChillicothe Va Medical CenterCO2 [Moles/Vol]28.4 mmol/L21.0-32.0[facility] Creatinine [Mass/Vol]0.97 mg/dL0.70-1.30[facility] GFR/1.73 sq M.predicted MDRD (S/P/Bld) [Vol rate/Area]mL/min/{1.73_m2}>=60 mL/min/1.73m 2FFairfield Medical CenterGlucose [Mass/Vol]317 mg/dLHigh 74-106[facility] CenterPotassium [Moles/Vol]4.3 mmol/L3.5-5.1 [facility] CenterProtein [Mass/Vol]6.7 g/dL6.4-8.2FTrinity Health Systemodium [Moles/Vol]136 mmol/Z450-852UaxnntyqwChillicothe Va Medical CenterUrea nitrogen [Mass/Vol]14.0 mg/dL7.0-18.0[facility] CenterUrea nitrogen/Creatinine [Mass ratio]14.4 mg/mgChillicothe Va Medical CenterLaboratory - Hematology and Cell countson 02-79-3162Lcnhxadt granulocytes/100 WBC (Bld)0.2 %0.0-0.5FFairfield Medical Center Leukocytes [#/volume] corrected for nucleated erythrocytes in Blood by Automated counon 44-27-8691LQP corrected for nucl RBC Auto (Bld) [#/Vol]Leukocytes [#/volume] corrected for nucleated erythrocytes in Blood by Automated coun 4.0-11.0[facility] CenterLymphocytes Auto (Bld) [#/Vol]on 99-64-8140Tozwhqhzprx (Bld) [#/Vol]Lymphocytes [#/volume] in Blood by Automated count1.2-3.8[facility] CenterLymphocytes/100 WBC Auto (Bld)on 28-88-3266Anfsyevxdal/100 WBC (Bld)Lymphocytes/100 leukocytes in Blood by Automated count20.5-60.0[facility] HospitalH Auto (RBC) [Entitic mass]on 47-43-8491RUI (RBC) [Entitic mass]MCH [Entitic mass] by Automated count 25.9-34.0[facility] CenterMCHC Auto (RBC) [Mass/Vol]on 61-61-6965BDRI (RBC) [Mass/Vol]MCHC [Mass/volume] by Automated count29.9-35.2 [facility] CenterMCV Auto (RBC) [Entitic vol]on 30-55-1383AGN (RBC) [Entitic vol]MCV [Entitic volume] by Automated count80.0-94.0[facility] CenterMonocytes Auto (Bld) [#/Vol]on 91-99-4966Yczegnhyv (Bld) [#/Vol]Automated blood monocyte count0.3-0.8[facility] Monocytes/100 WBC Auto (Bld)on 33-14-6830Bigwopjsd/100 WBC (Bld)Automated monocyte %1.7-12.0[facility] CenterNeutrophils Auto (Bld) [#/Vol]on 35-36-5014Lughqzelxgs (Bld) [#/Vol]Neutrophils [#/volume] in Blood by Automated count1.4-6.5FFairfield Medical CenterNeutrophils/100 WBC Auto (Bld)on 99-54-7554Ejezopwwnjq/100 WBC (Bld)Automated neutrophil %43.0-75.0 [facility] CenterNo Panel Informationon 84-91-8375Mxxzjhuoqsk # (Auto)0.2 10 3/uL0.0-0.7FFairfield Medical CenterImmature Granulocyte # (Auto)0.02 10 3/uL0.00-0.03[facility] CenterPlatelet mean volume Auto (Bld) [Entitic vol]on 27-27-7342Ftzivkdz mean volume (Bld) [Entitic vol] Platelet mean volume [Entitic volume] in Blood by Automated countLow9.5-13.5 [facility] CenterPlatelets Auto (Bld) [#/Vol]on 10-11-2024 Platelets (Bld) [#/Vol]Platelets [#/volume] in Blood by Automated bzoxy939-463 [facility] CenterRBC Auto (Bld) [#/Vol]on 93-37-9519SAQ (Bld) [#/Vol]Erythrocytes [#/volume] in Blood by Automated count4.70-6.10[facility] Hospitalerum or plasma albumin/globulin mass ratioon 10-11-2024 Albumin/Globulin [Mass ratio]Serum or plasma albumin/globulin mass ratio [facility] Hospitalerum or plasma anion gap determinationon 95-98-5684Psfjq gap [Moles/Vol]Serum or plasma anion gap determinationChillicothe Va Medical CenterEstimated glomerular filtration rate (GFR) non- Americanon 77-45-4351XAJ/1.73 sq M.predicted among non-blacks MDRD (S/P/Bld) [Vol rate/Area]Estimated glomerular filtration rate (GFR) non- >=60 mL/min/1.73m 2FFairfield Medical CenterLaboratory - Chemistry and Chemistry - challengeon 97-81-8341Fhlelltfkc [Mass/Vol]1.02 mg/dL0.70-1.30 [facility] CenterGFR/1.73 sq M.predicted MDRD (S/P/Bld) [Vol rate/Area]mL/min/{1.73_m2}>=60 mL/min/1.73m 2FFairfield Medical Center EGDon 23-07-8941YxcEibyqdOhioHealth Riverside Methodist HospitalNo Panel InformationOrdered By: Rosalia Shea on 07-93-2419EgdAwfmofOhioHealth Riverside Methodist HospitalNo Panel InformationOrdered By: Bill Henry on 32-63-0616Dbhuvaepmbwnz Pathology TestSee commentChillicothe Va Medical CenterComment on above:See report. Scanned copy available in EMR.No Panel Informationon 02-37-4012Whpaflgepgqk pylori Urease TestNegative [facility] CenterPathology Request for Lab Corpon 06-03-2024 Pathology Request for Lab CorpNormalThe [facility] Physician GroupComment on above:Order Comment: PATHOLOGY GI SPECIMENResult Comment: See report. Scanned copy available in EMR. PERFORMED BY: [address] [place] [id number] PATHOLOGIST MOLDED PARTS INSPECTOR JON PONCE M.D.Performed By: #### PATH TO [facility] #### [facility] [address] [id number] USACNPNon 21-07-5445QETNImkpmfgez ([id number]) NICHOLAS ZIEGLER ([id number]) 1960 M Date Time Provider Department 05/14/24 AMEYA TRAN [id number] During your visit today, we recorded the following information about you: Keily Martines 05/14/2024 1:11 PM Signed Referral was sent from [facility] for new consult with Dr Tran Please see below and advise Vivian Siddiqui 05/15/2024 11:54 AM Addendum Consult from Dr. Jeremy Magallanes (Internal Medicine) [facility] Referral received from PCP [...] Reviewed Reason for Visit: New Patient [172] Release Specialist - Other [3602] Problem List As Of Date: 05/14/2024 (None) Encounter Status:Closed by VIVIAN SIDDIQUI on 05/21/24[facility] Panel InformationOrdered By: Radiologist Radiology on [id number] Work Phone: No Panel Informationon [id number] Study observation (narrative)[facility] Hypopharynx and Esophagus Views for swallowing function W speech and W barium contrast [place]alle[place] [id number] [address] Fluoroscopy Report Signed Patient: NICHOLAS ZIEGLER MR#: [id number] : 1960 Acct:[id number] Age/Sex: 63 / M ADM Date: 04/08/24 Loc: [place] Attending Dr: Malathi Sanchez M.D. Ordering Physician: Malathi Sanchez M.D. Date of Service: 04/08/24 Procedure(s): FL barium swallow Accession Number(s): [id number] cc: Jeremy Magallanes M.D.; Malathi Sanchez M.D. [place] [id number] Patient Name: NICHOLAS ZIEGLER MRN: [id number] date: 1960 Sex: M Assigned Patient [place] Accession/Order Number: [id number] Exam Date: 04/08/2024 08:45 Report Date: 04/08/2024 [...] Signed By: 04/08/24 1100 DD/ 1057 TD/TT: Juice Mixer:TBHRadiology, Radiologist, - 04/08/2024 [place] [address] Fluoroscopy Report Signed Patient: NICHOLAS ZIEGLER MR#: [id number] : 1960 Acct:[id number] Age/Sex: 63 / M ADM Date: 04/08/24 Loc: [place] Attending Dr: Malathi Sanchez M.D. Ordering Physician: Malathi Sanchez M.D. Date of Service: 04/08/24 Procedure(s): FL barium swallow Accession Number(s): [id number] cc: Jeremy Magallanes M.D.; Malathi Sanchez M.D. [address] [place] [id number] Patient Name: NICHOLAS ZIEGLER MRN: [id number] date: 1960 Sex: M Assigned Patient [place]: [place] Accession/Order Number: [id number] Exam Date: 04/08/2024 08:45 Report Date: 04/08/2024 [...] Signed By: 04/08/24 1100 DD/ 1057 TD/TT: Juice Mixer: REMINGTON Soria CINERADIOGRAPHYon [id number], [place] [address] Fluoroscopy Report Signed Patient: NICHOLAS ZIEGLER MR#: [id number] : 1960 Acct:[id number] Age/Sex: 63 / M ADM Date: 04/08/24 Loc: [place] Attending Dr: Malathi Sanchez M.D. Ordering Physician: Malathi Sanchez M.D. Date of Service: 04/08/24 Procedure(s): FL cineradiography Accession Number(s): [id number] cc: Jeremy Magallanes M.D.; Malathi Sanchez M.D. [address] [place] [address] Patient Name: NICHOLAS ZIEGLER MRN: [id number] date: 1960 Sex: M Assigned Patient [place] Accession/Order Number: [id number] Exam Date: 04/08/2024 08:45 Report Date: 04/08/2024 [...] Signed By: 04/08/24 1100 DD/ 1057 TD/TT: Juice Mixer:SEYMOURHRadiology, Radiologist, - 04/08/2024 [place] [address] Fluoroscopy Report Signed Patient: NICHOLAS ZIEGLER MR#: [id number] : 1960 Acct:[id number] Age/Sex: 63 / M ADM Date: 04/08/24 Loc: [place] Attending Dr: Malathi Sanchez M.D. Ordering Physician: Malathi Sanchez M.D. Date of Service: 04/08/24 Procedure(s): FL cineradiography Accession Number(s): [id number] cc: Jeremy Magallanes M.D.; Malathi Sanchez M.D. [facility] [place] [address] Patient Name: NICHOLAS ZIEGLER MRN: [id number] date: 1960 Sex: M Assigned Patient [place] Accession/Order Number: [id number] Exam Date: 04/08/2024 08:45 Report Date: 04/08/2024 [...] Signed By: 04/08/24 1100 DD/ 1057 TD/TT: Juice Mixer: REMINGTON [facility] HospitalBasophils Auto (Bld) [#/Vol]on 57-41-5110Lisnvvyfj (Bld) [#/Vol] 0.1 10 3/uL0.0-0.1FFairfield Medical CenterBasophils/100 WBC Auto (Bld) on 80-26-5255Auyuzwpzm/100 WBC (Bld)0.5 %0.2-2.0[facility] CenterEosinophils/100 WBC Auto (Bld)on 33-17-0550Bfjrkbvrdqj/100 WBC (Bld)2.5 % 0.9-7.0[facility] CenterErythrocyte distribution width Auto (RBC) [Ratio]on 43-19-0251Dbntlrdygae distribution width (RBC) [Ratio]13.5 % 11.0-15.0[facility] CenterEstimated glomerular filtration rate (GFR) non- Americanon 19-91-2023UBH/1.73 sq M.predicted among non-blacks MDRD (S/P/Bld) [Vol rate/Area]mL/min/{1.73_m2}>=60[facility] CenterHematocrit Auto (Bld) [Volume fraction]on 98-24-6935Nxjcgfmgnd (Bld) [Volume fraction]47.1 %42.0-54.0[facility] CenterHemoglobin [Mass/volume] in Bloodon 92-22-0347Dizjpioghh (Bld) [Mass/Vol]15.5 g/dL14.0-18.0 [facility] CenterLaboratory - Chemistry and Chemistry - challengeon 12-75-3868Chgzwzl [Mass/Vol]8.9 mg/dL8.5-10.1FFairfield Medical CenterChloride [Moles/Vol]98 mmol/G31-165LfzyjjwygChillicothe Va Medical CenterCO2 [Moles/Vol]28.1 mmol/L21.0-32.0[facility] Creatinine [Mass/Vol]0.86 mg/dL0.70-1.30[facility] GFR/1.73 sq M.predicted MDRD (S/P/Bld) [Vol rate/Area]mL/min/{1.73_m2}>=60 [facility] CenterGlucose [Mass/Vol]237 mg/yBEftg02-178BbhmptibxChillicothe Va Medical CenterLactate [Moles/Vol]1.3 mmol/L0.4-2.0[facility] CenterPotassium [Moles/Vol]4.4 mmol/L3.5-5.1FTrinity Health Systemodium [Moles/Vol]130 mmol/SPuk318-492DsepbybuiChillicothe Va Medical Center Urea nitrogen [Mass/Vol]21.0 mg/dLHigh7.0-18.0[facility] Urea nitrogen/Creatinine [Mass ratio]24.4 mg/mgChillicothe Va Medical Center Laboratory - Hematology and Cell countson 36-66-4557Czuvrmoq granulocytes/100 WBC (Bld)0.3 %0.0-0.5FFairfield Medical CenterLeukocytes [#/volume] corrected for nucleated erythrocytes in Blood by Automated counon 46-97-1542QCB corrected for nucl RBC Auto (Bld) [#/Vol]9.3 10 3/uL4.0-11.0[facility] CenterLymphocytes Auto (Bld) [#/Vol]on 07-39-9844Jebfsdgtaeb (Bld) [#/Vol]2.4 10 3/uL1.2-3.8[facility] CenterLymphocytes/100 WBC Auto (Bld)on 21-33-0914Gpvnsmjmqrs/100 WBC (Bld)25.5 %20.5-60.0[facility] HospitalH Auto (RBC) [Entitic mass]on 25-10-4495SYD (RBC) [Entitic mass]29.1 pg25.9-34.0[facility] CenterMCHC Auto (RBC) [Mass/Vol]on 29-89-7264HPWZ (RBC) [Mass/Vol]32.9 g/dL29.9-35.2FFairfield Medical CenterMCV Auto (RBC) [Entitic vol]on 17-18-2807GIY (RBC) [Entitic vol] 88.5 fL80.0-94.0[facility] CenterMonocytes Auto (Bld) [#/Vol]on 92-60-8908Ighmtzqvo (Bld) [#/Vol]1.1 10 3/uLHigh0.3-0.8[facility] CenterMonocytes/100 WBC Auto (Bld)on 91-21-9765Ugsybfsba/100 WBC (Bld) 12.0 %1.7-12.0[facility] CenterNeutrophils Auto (Bld) [#/Vol]on 64-28-4982Rwpsvzjutwt (Bld) [#/Vol]5.5 10 3/uL1.4-6.5FFairfield Medical CenterNeutrophils/100 WBC Auto (Bld)on 99-52-1291Jjlbbuwbtij/100 WBC (Bld)59.2 % 43.0-75.0[facility] CenterNo Panel Informationon 02-27-2024 Eosinophils # (Auto)0.2 10 3/uL0.0-0.7FFairfield Medical CenterImmature Granulocyte # (Auto)0.03 10 3/uL0.00-0.03[facility] Platelet mean volume Auto (Bld) [Entitic vol]on 70-15-8552Eygcdper mean volume (Bld) [Entitic vol]8.8 fLLow9.5-13.5FFairfield Medical CenterPlatelets Auto (Bld) [#/Vol]on 48-94-5133Trqtjkejm (Bld) [#/Vol]288 10 3/aW836-783 [facility] CenterRBC Auto (Bld) [#/Vol]on 94-00-0079GZB (Bld) [#/Vol]5.32 10 6/uL4.70-6.10Corey Hospitalerum or plasma anion gap determinationon 66-96-3167Rahmi gap [Moles/Vol]8.3 mmol/LFFairfield Medical CenterBasophils Auto (Bld) [#/Vol]on 93-13-6725Nswvpbxew (Bld) [#/Vol]0.1 10 3/uL0.0-0.1FFairfield Medical CenterBasophils/100 WBC Auto (Bld)on 91-57-9050Qvouvhppa/100 WBC (Bld)0.9 %0.2-2.0[facility] CenterEosinophils/100 WBC Auto (Bld)on 91-69-8321Gpqlpkmtidw/100 WBC (Bld)2.7 % 0.9-7.0[facility] CenterErythrocyte distribution width Auto (RBC) [Ratio]on 68-56-8065Trdsaccuedb distribution width (RBC) [Ratio]13.1 % 11.0-15.0[facility] CenterEstimated glomerular filtration rate (GFR) non- Americanon 66-86-5996VQP/1.73 sq M.predicted among non-blacks MDRD (S/P/Bld) [Vol rate/Area]mL/min/{1.73_m2}>=60[facility] CenterGlucose mean value [Mass/volume] in Blood Estimated from glycated hemoglobinon 58-14-2000Znigtdv glucose Estimated from glycated hemoglobin (Bld) [Mass/Vol]171 mg/dLChillicothe Va Medical CenterHematocrit Auto (Bld) [Volume fraction]on 10-93-7488Loqddfkoxm (Bld) [Volume fraction]48.9 %42.0-54.0 [facility] CenterHemoglobin [Mass/volume] in Bloodon 12-05-2023 Hemoglobin (Bld) [Mass/Vol]16.0 g/dL14.0-18.0[facility] Laboratory - Chemistry and Chemistry - challengeon 26-50-5343Wprhtwk [Mass/Vol] 9.7 mg/dL8.5-10.1FFairfield Medical CenterChloride [Moles/Vol]102 mmol/L 98-107[facility] CenterCO2 [Moles/Vol]27.6 mmol/L21.0-32.0 [facility] CenterCreatinine [Mass/Vol]1.01 mg/dL0.70-1.30 [facility] CenterGFR/1.73 sq M.predicted MDRD (S/P/Bld) [Vol rate/Area]mL/min/{1.73_m2}>=60[facility] CenterGlucose [Mass/Vol]156 mg/eSHutz54-405IaofjiimmChillicothe Va Medical CenterPotassium [Moles/Vol]4.4 mmol/L3.5-5.1FTrinity Health Systemodium [Moles/Vol] 139 mmol/O939-300ZqmjoiaioChillicothe Va Medical CenterUrea nitrogen [Mass/Vol]13.0 mg/dL7.0-18.0[facility] CenterUrea nitrogen/Creatinine [Mass ratio]12.9 mg/mgChillicothe Va Medical CenterLaboratory - Hematology and Cell countson 84-45-4172SGD (Bld) [Velocity]17 mm/h<=20[facility] CenterHbA1c (Bld) [Mass fraction]7.6 %High4.5-6.2FFairfield Medical CenterComment on above:ADA RECOMMENDED LIMIT 4.0 - 6.0ADA THERAPEUTIC TARGET < 7.0ACTION SUGGESTED> 7.0Immature granulocytes/100 WBC (Bld)0.4 %0.0-0.5 [facility] CenterLeukocytes [#/volume] corrected for nucleated erythrocytes in Blood by Automated counon 14-00-8566RKE corrected for nucl RBC Auto (Bld) [#/Vol]7.7 10 3/uL4.0-11.0[facility] Lymphocytes Auto (Bld) [#/Vol]on 77-88-9003Diigaylqqln (Bld) [#/Vol]2.4 10 3/uL 1.2-3.8[facility] CenterLymphocytes/100 WBC Auto (Bld)on 57-52-3987Fplzwohslgo/100 WBC (Bld)31.2 %20.5-60.0[facility] Memorial HospitalH Auto (RBC) [Entitic mass]on 32-89-2120YSC (RBC) [Entitic mass]28.5 pg 25.9-34.0[facility] CenterMCHC Auto (RBC) [Mass/Vol]on 96-74-7034YOMQ (RBC) [Mass/Vol]32.7 g/dL29.9-35.2FFairfield Medical CenterMCV Auto (RBC) [Entitic vol]on 06-45-1914UHU (RBC) [Entitic vol]87.0 fL 80.0-94.0[facility] CenterMonocytes Auto (Bld) [#/Vol]on 85-42-9467Eiwunaxln (Bld) [#/Vol]0.7 10 3/uL0.3-0.8[facility] CenterMonocytes/100 WBC Auto (Bld)on 87-04-1773Dyqfpkugw/100 WBC (Bld)9.5 % 1.7-12.0[facility] CenterNeutrophils Auto (Bld) [#/Vol]on 86-96-3676Ymimswwmuyu (Bld) [#/Vol]4.2 10 3/uL1.4-6.5FFairfield Medical CenterNeutrophils/100 WBC Auto (Bld)on 83-40-9439Oqyxtrynxzx/100 WBC (Bld)55.3 % 43.0-75.0[facility] CenterNo Panel Informationon 12-05-2023 Eosinophils # (Auto)0.2 10 3/uL0.0-0.7FFairfield Medical CenterImmature Granulocyte # (Auto)0.03 10 3/uL0.00-0.03[facility] Platelet mean volume Auto (Bld) [Entitic vol]on 76-45-4400Kvouvhro mean volume (Bld) [Entitic vol]8.6 fLLow9.5-13.5FFairfield Medical CenterPlatelets Auto (Bld) [#/Vol]on 65-54-1449Jsdnuihnq (Bld) [#/Vol]330 10 3/yM597-468 [facility] CenterRBC Auto (Bld) [#/Vol]on 92-64-0942VJG (Bld) [#/Vol]5.62 10 6/uL4.70-6.10Corey Hospitalerum or plasma anion gap determinationon 10-89-4453Hwdby gap [Moles/Vol]13.8 mmol/LFFairfield Medical CenterMagnesiumon 18-00-0430Bhctjzooe [Mass/Vol]2.4313996 mg/dL Normal1.8-2.4 mg/dLSeward [employer] Other Magnesiumsee noteNosaint john's saint francis hospital [employer] Other XR CHEST 2 Von 29-12-8413WX CHEST 2 VEXAM: CHEST 2 VIEWS HISTORY: [...] Electronically authenticated by: RUBI TAVERAS Date: 2022-11-24 17:[address] [place] [address] LUNG CANCER SCREENINGon 14-91-6368XS LUNG CANCER SCREENING EXAMINATION: CT LUNG CANCER [...] Electronically authenticated by: YEISON NAVAS Date: 2022-07-20 07:18NormalThGeorgetown [facility] AUTO DIFFon 76-64-5438VJWR #0.1 103/ulNormal0.0-0.1[facility] HospitalComment on above:Performed By: #### CBC #### [facility] [address] [place] [address] Dr. Eran ChaconBasophils/100 WBC (Bld)0.6 %Normal0.2-2.0[facility] Comment on above:Performed By: #### CBC #### [facility] [address] [place] [address] Dr. Eran Groves #0.3 103/ulNormal0.0-0.7ThKettering HealthComment on above: Performed By: #### CBC #### [facility] [address] [place] [address] Dr. Eran Hatfieldosinophils/100 WBC (Bld)3.3 %Normal0.9-7.0[facility] Comment on above:Performed By: #### CBC #### [facility] [address] [place] [address] Dr. Yilan ChangErythrocyte distribution width (RBC) [Ratio]12.9 %Aigfub90.0-15.0 The [facility] HospitalComment on above:Performed By: #### CBC #### [facility] [address] [place] [address] Dr. Eran ChaconHematocrit (Bld) [Volume fraction]47.7 %Aocvin29.0-54.0The [facility]S HospitalComment on above:Performed By: #### CBC #### [facility] [address] [place] [address] Dr. Eran ChaconHemoglobin (Bld) [Mass/Vol]15.9 g/qRQlczvb11.0-18.0The [facility] HospitalComment on above:Performed By: #### CBC #### [facility] [address] [place] [address] Dr. Eran Sethi #0.02 10e3/ulNormal0.00-0.03The [facility] HospitalComment on above:Performed By: #### CBC #### [facility] [address] [place] [address] Dr. Eran Sethi %0.2 %Normal0.0-0.5The [facility]S HospitalComment on above: Performed By: #### CBC #### [facility] [address] [place] [address] Dr. Eran Romero #3.4 103/ulNormal1.2-3.8The [facility] HospitalComment on above:Performed By: #### CBC #### [facility] [address] [place] [address] Dr. Eran Chandrahocytes/100 WBC (Bld)34.5 %Tvxbcn60.5-60.0The [facility]S HospitalComment on above:Performed By: #### CBC #### [facility] [address] [place] [address] Dr. Eran SanchezUAL DIFF REQNONormalThe [facility] HospitalComment on above: Performed By: #### CBC #### [facility] [address] [place] [address] Dr. Eran GeorgeGladys (RBC) [Entitic mass]29.6 rcMpvffl65.9-34.0The [facility] HospitalComment on above:Performed By: #### CBC #### [facility] [address] [place] [address] Dr. Eran George (RBC) [Mass/Vol]33.3 g/rMBnwugq52.9-35.2The [facility] HospitalComment on above:Performed By: #### CBC #### [facility] [address] [place] [address] Dr. Eran George (RBC) [Entitic vol]88.8 uQTjbkna97.0-94.0The [facility] HospitalComment on above:Performed By: #### CBC #### [facility] [address] [place] [address] Dr. Eran Segura #0.9 103/ulCritically high0.3-0.8The [facility] Comment on above:Performed By: #### CBC #### [facility] [address] [place] [address] Dr. Eran Avilaocytes/100 WBC (Bld)9.3 %Normal1.7-12.0The [facility] Comment on above:Performed By: #### CBC #### [facility] [address] [place] [address] Dr. Eran AtkinsonUT #5.2 103/ulNormal1.4-6.5The [facility]S HospitalComment on above:Performed By: #### CBC #### [facility] [address] [place] [address] Dr. Eran Atkinsonutrophils/100 WBC (Bld)52.1 %Szjdzd50.0-75.0The [facility] HospitalComment on above:Performed By: #### CBC #### [facility] [address] [place] [address] Dr. Eran Agee mean volume (Bld) [Entitic vol]8.8 fLCritically low 9.5-13.5The [facility] HospitalComment on above:Performed By: #### CBC #### [facility] [address] [place] [address] [address] Eran ChaconPLT287 103/alKmgtvy096-723Zap [facility] HospitalComment on above: Performed By: #### CBC #### [facility] [address] [place] [address] Dr. Eran ChaconRBC5.37 106/ulNormal4.70-6.10The [facility] HospitalComment on above:Performed By: #### CBC #### [facility] [address] [place] [address] Dr. Eran ChaconWBC9.9 103/ulNormal4.0-11.0The [facility] HospitalComment on above: Performed By: #### CBC #### [facility] [address] [place] [address] Dr. Eran Jones URINE PROFILEon 74-94-9256Eeuazkfjo Ql (U)NegativeNormal NEGATIVEThe [facility] HospitalComment on above:Performed By: #### BISHNU TREVINORO #### [facility] [address] [place] [address] Dr. Eran ChaconClarity (U)CLEARNormalCLEARMercy Health Allen HospitalComment on above: Performed By: #### BISHNU TREVINORO #### [facility] [address] [place] [address] Dr. Eran Salazarlor (U)YELLOWNormalYELLOWThe [facility] HospitalComment on above: Performed By: #### HANNA TREVINO #### [facility] [address] [place] [address] Dr. Eran Turner micrscopic examination will be performed if indicated. NormalThe [facility]S HospitalComment on above:Performed By: #### BISHNU TREVINORO #### [facility] [address] [place] [address] Dr. Eran ChaconGlucose Ql (U)500 mg/dlAbnormalNEGATIVEThe [facility] Comment on above:Performed By: #### BISHNU TREVINORO #### [facility] [address] [place] [address] [address] Eran ChaconHemoglobin Ql (U)TRACE-INTACTAbnormalNEGATIVEThe [facility] HospitalComment on above:Performed By: #### BISHNU TREVINORO #### [facility] [address] [place] [address] Dr. Eran Abbottones Ql (U)NegativeNormalNEGATIVEThe [facility] HospitalComment on above:Performed By: #### BISHNU TREVINORO #### [facility] [address] [place] [address] Dr. Eran ChaconLEUKOCYTESNegativeNormalNEGATIVEThe [facility] HospitalComment on above:Performed By: #### BISHNU TREVINORO #### [facility] [address] [place] [address] Dr. Eran ChaconNitrite Ql (U)NegativeNormalNEGATIVEMercy Health Allen HospitalComment on above:Performed By: #### BISHNU TREVINORO #### [facility] [address] [place] [address] Dr. Eran ChaconpH (U)6.0 [pH]Normal5-9[facility] HospitalComment on above: Performed By: #### BISHNU TREVINORO #### [facility] [address] [place] [address] Dr. Eran ChaconSPEC GRAVITY1.097Yykboa0.005-<=1.025The [facility]S HospitalComment on above:Performed By: #### BISHNU TREVINORO #### [facility] [address] [place] [address] Dr. Eran Schaeffer PROTEINNegativeNormalNEGATIVE/ TRACEThe [facility] on above:Performed By: #### BISHNU TREVINORO #### [facility] [address] [place] [address] Dr. Eran Kumar MICRO INDINDICATEDNoalThe [facility]S HospitalComment on above: Performed By: #### BISHNU TREVINORO #### [facility] [address] [place] [address] Dr. Eran Hugginsbilinogen Qn (U)0.2 {Aureliano'U}/dLNormal0.2 - 1.0The [facility]S HospitalComment on above:Performed By: #### HANNA TREVINO #### [facility] [address] [address] [address] Eran Cuellar 14(COMP METB)on 00-54-1254Visotxq [Mass/Vol]4.0 g/dLNormal 3.4-5.0The [facility] HospitalComment on above:Performed By: #### CMP #### [facility] [address] [place] [address] Dr. Eran ChaconAlbumin/Globulin [Mass ratio]1.2 {ratio}NormalThe [facility]S HospitalComment on above:Performed By: #### CMP #### [facility] [address] [place] [address] Dr. Eran AlfonsoP [Catalytic activity/Vol]104 U/LIvtvdh97-988Fpt [facility] HospitalComment on above:Performed By: #### CMP #### [facility] [address] [place] [address] Dr. Eran Zayas [Catalytic activity/Vol]28 U/JIzykyo64-03Rki [facility] HospitalComment on above:Performed By: #### CMP #### [facility] [address] [place] [address] Dr. Eran Cm gap [Moles/Vol]7.2 mmol/LNormalThe [facility] HospitalComment on above:Performed By: #### CMP #### [facility] [address] [place] [address] Dr. Eran ChaconAST [Catalytic activity/Vol]14 U/LCritically fmv04-80Kbz [facility] HospitalComment on above:Performed By: #### CMP #### [facility] [address] [place] [address] Dr. Eran ChaconBilirubin [Mass/Vol]0.4 mg/dLNormal0.2-1.0The [facility] Comment on above:Performed By: #### CMP #### [facility] [address] [place], [place] [id number] Dr. Eran ChaconCalcium [Mass/Vol]9.0 mg/dLNormal8.5-10.1The [facility] Comment on above:Performed By: #### CMP #### [facility] [address] [place] [address] Dr. Eran ChaconChloride [Moles/Vol]103 mmol/DVvcdkg82-367Wii [facility] Comment on above:Performed By: #### CMP #### [facility] [address] [place] [address] Dr. Eran ChaconCO2 [Moles/Vol]30.0 mmol/YNfsgqu63.0-32.0The [facility] Comment on above:Performed By: #### CMP #### [facility] [address] [place] [address] Dr. Eran ChaconCreatinine [Mass/Vol]0.85 mg/dLNormal0.70-1.30The [facility] HospitalComment on above:Performed By: #### CMP #### [facility] [address] [place] [address] Dr. Barillas ChangEGFR-AF VATICAN CITIZEN>60Normal>=60The [facility]S HospitalComment on above:Performed By: #### CMP #### [facility] [address] [place] [address] Dr. Eran HatfieldGFR-NON AF [place] CITIZEN>60Normal>=60The [facility]S HospitalComment on above:Performed By: #### CMP #### [facility] [address] [place] [address] Dr. Eran ChaconGlobulin (S) [Mass/Vol]3.3 g/dLNormalThe [facility] HospitalComment on above:Performed By: #### CMP #### [facility] [address] [place] [address] Dr. Eran ChaconGlucose [Mass/Vol]165 mg/dLCritically ynth48-070Vxp [facility] HospitalComment on above:Performed By: #### CMP #### [facility] [address] [place] [address] Dr. Yilan ChangPotassium [Moles/Vol]4.2 mmol/LNormal3.5-5.1The [facility] Comment on above:Performed By: #### CMP #### [facility] [address] [place] [address] Dr. Eran ChaconProtein [Mass/Vol]7.3 g/dLNormal6.4-8.2The [facility] Comment on above:Performed By: #### CMP #### [facility] [address] [place] [address] Dr. Eran ChaconSodium [Moles/Vol]136 mmol/QOmyemo420-683Hee [facility] Comment on above:Performed By: #### CMP #### [facility] [address] [place] [address] Dr. Eran ChaconUrea nitrogen [Mass/Vol]10.0 mg/dLNormal7.0-18.0The [facility] HospitalComment on above:Performed By: #### CMP #### [facility] [address] [place] [address] Dr. Eran Munoz nitrogen/Creatinine [Mass ratio]11.8 mg/mgNoLancaster Municipal HospitalComment on above:Performed By: #### CMP #### [facility] [address] [place] [address] Dr. Eran Johnston MICROSCOPIC ONLYon [id number] SEENNormalNONE SEENMercy Health Allen HospitalComment on above:Performed By: #### BISHNU TREVINORO #### [facility] [address] [place] [address] Dr. Eran Joiner identified Cx Nom (U)NOT INDICATEDNoLancaster Municipal HospitalComment on above:Performed By: #### ERMELINDA TREVINOICRO #### [facility] [address] [place] [address] Dr. Eran Jason SEENNormalNONE SEENMercy Health Allen HospitalComment on above:Performed By: #### URIEL UMICRO #### [facility] [facility] [address] [place] [address] Dr. Yilan ChangCrystals LM Nom (Urine sed)NONE SEENNormalNONE SEENMercy Health Allen HospitalComment on above:Performed By: #### URIEL UMICRO #### [facility] [address] [place] [address] Dr. Barillas ChangEpithelial cells LM Ql (Urine sed)RARENormalNONE SEEN /RAREThe [facility] Children'S HospitalComment on above:Performed By: #### URIEL, UMICRO #### [facility] [address] [place] [address] Dr. Eran ChaconMUCOUSNONE SEENNormalNONE SEENThe [facility]'S HospitalComment on above:Performed By: #### URIEL UMICRO #### [facility] [address] [place] [address] Dr. Eran ChaconDgphdEWV6-0Hzwqmq0-1Llb [facility] HospitalComment on above:Performed By: #### BISHNU TREVINORO #### [facility] [address] [place] [address] Dr. Eran ChaconWBC2-5AbnormalNONE SEENMercy Health Allen HospitalComment on above: Performed By: #### URIEL, UMICRO #### [facility] [address] [place] [address] Dr. Eran ChaconI SHOULDER LT WO CONon [id number] SHOULDER LT WO CON EXAMINATION: MRI SHOULDER [...] authenticated by: YEISON NAVAS Date: 2022-02-02 17:[address] [place] [address] Vital Signs Date TimeVital SignValuePerforming GisehscvvCrctlzfr49-98-0355 13:51-0400 Diastolic blood oazxarow22 mm[Hg]Jeremy Magallanes MD Work Phone: [phone] [address]10-13-2025 13:51-0400 Heart rate75 /minJeremy Magallanes MD Work Phone: [phone])75947 [address]10-13-2025 13:51-0400 SaO2% (BldA) [Mass fraction]95 %Jeremy Magallanes MD Work Phone: 1([phone])711-[address] [place], [place] [address]3410-13-2025 13:51-0400 Systolic blood mm[Hg]Jeremy Magallanes MD Work Phone: [phone])06547 [address]10-13-2025 13:46-0400 Body rumibk932.26 cmJeremy Magallanes MD Work Phone: [phone]67[facility]10-13-2025 13:46-0400 Body mass index (BMI) [Ratio]34 kg/x3KvyfbaJeremy Magallanes MD Work Phone: [phone])[address]47 [address]10-13-2025 13:46-0400 Body uavmcxuvkrp55.7 [degF]Jeremy Magallanes MD Work Phone: [phone])06647 [address]10-13-2025 13:46-0400 Body mdojgz782.32 kgJeremy Magallanes MD Work Phone: [phone])[address]47 [address]07-01-2025 14:47-0400 Body ojlsop602.26 cmJeremy Magallanes MD Work Phone: [phone])61247 [address]07-01-2025 14:47-0400 Body mass index (BMI) [Ratio]34 kg/l3UhchjgJeremy Magallanes MD Work Phone: [phone])67447 [address]07-01-2025 14:47-0400 Body uvkugp946.32 kgJeremy Magallanes MD Work Phone: [phone])73647 [address]07-01-2025 14:47-0400 Diastolic blood hanizbgg66 mm[Hg]Jeremy Magallanes MD Work Phone: [phone])52147 [address]07-01-2025 14:47-0400 Heart rate81 /Jennifer Magallanes MD Work Phone: [phone])[address] [place], [place] 0549407-01-2025 14:47-0400 Respiratory rate12 /Jennifer Magallanes MD Work Phone: [phone] [place], [place] 0549407-01-2025 14:47-0400 SaO2% (BldA) [Mass fraction]97 %Jeremy Magallanes MD Work Phone: [phone])[address]07-01-2025 14:47-0400 Systolic blood xgxniycj191 mm[Hg]Jeremy Magallanes MD Work Phone: 1(174)[address] [place], [place] 0549406-05-2025 09:27-0400 Body fqhkvi629.26 cmCh[facility]06-05-2025 09:27-0400Body mass index (BMI) [Ratio]34.1 kg/m6JgpwgqmgiChillicothe Va Medical Center06-05-2025 09:27-0400Body plcvxihegyd98.5 [degF][facility]06-05-2025 09:27-0400Body .77 kgChillicothe [facility] Center06-05-2025 09:27-0400Diastolic blood vaerojuv24 mm[Hg][facility] 01-21-2025 09:27-0400Heart rate72 /minChillicothe Va Medical Center 01-21-2025 09:27-8298XwB2% (BldA) [Mass fraction]97 %[facility]06-05-2025 09:27-0400Systolic blood wfbpykpr725 mm[Hg][facility]05-06-2025 08:21-0400Body .26 cmCh[facility]icothe [facility]05-06-2025 08:21-0400Body mass index (BMI) [Ratio]33.6 kg/m2 [facility]05-06-2025 08:21-0400Body nsujymntcto19.6 [degF][facility]05-06-2025 08:21-0400Body puvavv459.41 kg [facility]05-06-2025 08:21-0400Diastolic blood fmwourde32 mm[Hg][facility]05-06-2025 08:21-0400Heart rate71 /min [facility]05-06-2025 08:21-6811OzV3% (BldA) [Mass fraction]94 %[facility]05-06-2025 08:21-0400Systolic blood ytobuvoi645 mm[Hg][facility]02-27-2025 08:56-0500 Body vmampu840.26 cmChillicothe [facility] Center02-27-2025 08:56-0500Body mass index (BMI) [Ratio]34.5 kg/b2MlrzkojzlChillicothe Va Medical Center02-27-2025 08:56-0500Body khcbkkgyggf86 [degF][facility]02-27-2025 08:56-0500Body vtzyjk258.14 kgChillicothe [facility] Center02-27-2025 08:56-0500Diastolic blood gvcubdnk44 mm[Hg][facility] 10-15-2024 08:56-0500Heart rate76 /[facility] 10-15-2024 08:56-0500Systolic blood dfqikruu312 mm[Hg][facility]12-05-2024 10:050Body gyjtkw035.26 cmChillicothe Va Medical Center12-05-2024 10:210500Body mass index (BMI) [Ratio]34.2 kg/x8OpjzawxryChillicothe Va Medical Center12-05-2024 10:050Body peaqvg898.23 kgChillicothe Va Medical Center12-05-2024 10:0500Diastolic blood ziqyuusi94 mm[Hg] [facility]12-05-2024 10:0500Heart rate73 /minChillicothe Va Medical Center12-05-2024 10:3719ViL1% (BldA) [Mass fraction]97 % [facility]12-05-2024 10:050Systolic blood etijeupg057 mm[Hg][facility]10-30-2024 09:13-0400Body anxsuw324.26 cm MD Jeremy Magallanes Work Phone: [phone])74447 [address]10-30-2024 09:13-0400 Body mass index (BMI) [Ratio]33.5 kg/m2MD Jeremy Magallanes Work Phone: [phone])54347 [address]10-30-2024 09:13-0400 Body rjvyiycoxve83.1 [degF]MD Jeremy Magallanes Work Phone: [phone])13247 [address]10-30-2024 09:13-0400 Body zrxbua633.96 kgMD Jeremy Magallanes Work Phone: [phone])41447 [address]10-30-2024 09:13-0400 Diastolic blood hyfyvylc58 mm[Hg]MD Jeremy Magallanes Work Phone: [phone]10-30-2024 09:13-0400 Heart rate79 /minMD Jeremy Magallanes Work Phone: 1(260)989-[address] [place], [place] [address]10-30-2024 09:13-0400 Systolic blood fccidmfk925 mm[Hg]MD Jeremy Magallanes Work Phone: [phone])125-[address] [place], [place] [address]3410-09-2024 14:56-0400 Body hwcmye783.3 cmPriyanka Benites TYPING POOL SUPERVISOR-[employer] Work Phone: [facility]10-09-2024 14:56-0400Body mass index (BMI) [Ratio]33.97 kg/a9ZhfvtttPriyanka Benites TYPING POOL SUPERVISOR-[employer] Work Phone: [facility]10-09-2024 14:56-0400Body vajack195.33 kgJelaure Benites TYPING POOL SUPERVISOR-[employer] Work Phone: [facility]08-20-2024 10:04-0400Body .3 cmMalathi Sanchez MD Work Phone: [facility] [phone] 10:04-0400Body mass index (BMI) [Ratio]32.78 kg/g8MwmagaMalathi Sanchez MD Work Phone: [facility] HospitalTevexsygmh75-76-9644 10:04-0400Body arriby026.59 kgMalathi Sanchez MD Work Phone: [facility] HospitalTgsnsblihi23-41-3673 10:04-0400Diastolic blood mm[Hg]Malathi Sanchez MD Work Phone: [facility] HospitalNvuwhbindq63-54-9945 10:04-0400Systolic blood zqxaxdzh311 mm[Hg]Malathi Sanchez MD Work Phone: [facility] HospitalWkzlnueifv92-52-6149 08:46-0400Body evsutc458.26 cmCh[facility]ic[facility]07-31-2024 08:46-0400Body mass index (BMI) [Ratio]34.4 kg/z7WjvsidhafChillicothe Va Medical Center07-31-2024 08:46-0400Body acxlju460.68 kgChillicothe [facility] Center07-31-2024 08:46-0400Diastolic blood zjndxjek51 mm[Hg][facility]07-31-2024 08:46-0400 Heart rate72 /minChillicothe Va Medical Center07-31-2024 08:46-0400Systolic blood swrpzjmi985 mm[Hg][facility]07-16-2024 11:54-0400 Body gusqqa120.26 cmCh[facility]icothe [facility]07-16-2024 11:54-0400Body mass index (BMI) [Ratio]34.7 kg/u0ZephxwzgcChillicothe Va Medical Center07-16-2024 11:54-0400Body chejkc671.59 kgChillicothe [facility] Center07-16-2024 11:54-0400Diastolic blood muxobwdg64 mm[Hg][facility] 03-03-2024 11:54-0400Heart rate69 /[facility] 03-03-2024 11:54-0400Systolic blood fvtpcguo502 mm[Hg][facility]04-30-2024 08:54-0400Body dlffxa106.26 cmCh[facility]icothe [facility]04-30-2024 08:54-0400Body mass index (BMI) [Ratio]35.2 kg/c2HiwxojbssChillicothe Va Medical Center04-30-2024 08:54-0400Body fdeami133.4 [facility]04-30-2024 08:54-0400Diastolic blood pyxuhmfx93 mm[Hg] [facility]04-30-2024 08:54-0400Heart rate76 /[facility]04-30-2024 08:54-0400Systolic blood dhawzgii995 mm[Hg] [facility]04-18-2024 08:52-0400Body kynipi888.26 cm [facility]04-18-2024 08:52-0400Body mass index (BMI) [Ratio]35 kg/m0SusnjsgyuChillicothe Va Medical Center04-18-2024 08:52-0400Body weight 107.67 kgChillicothe Va Medical Center04-18-2024 08:52-0400Diastolic blood ewurpuia63 mm[Hg][facility]04-18-2024 08:52-0400Heart rate69 /[facility]04-18-2024 08:52-0400Systolic blood uwlrrjji777 mm[Hg][facility]01-26-2024 13:30-0500Body auolsn261.26 cmJeremy Magallanes Other [facility]01-26-2024 13:30-0500 Body mass index (BMI) [Ratio]33.22 kg/b2BiyudfJeremy Magallanes Other [employer] Other 01-26-2024 13:30-0500Body eaczktywdsz71.4 [degF]Jeremy Magallanes Other [employer] Other 01-26-2024 13:30-0500Body cqpohe047.06 kgJeremy Magallanes Other [employer] Other 01-26-2024 13:30-0500Body .05 kgCh[facility]icothe [facility] Center01-26-2024 13:30-0500Diastolic blood znfdyuwm33 mm[Hg] Jeremy Magallanes Other [facility]01-26-2024 13:30-0500 SaO2% (BldA) [Mass fraction]93 %Jeremy Magallanes Other [employer] Other 01-26-2024 13:30-0500Systolic blood skdiesou826 mm[Hg] Jeremy aMgallanes Other [facility]12-26-2023 10:30-0500 Body zzvivl617.26 cmJeremy Magallanes Other [employer] Other 12-26-2023 10:30-0500Body mass index (BMI) [Ratio]33.9 kg/z7WwobdjJeremy Magallanes Other [employer] Other 12-26-2023 10:30-0500Body jfquts308.15 kgJeremy Magallanes Other [employer] Other 12-26-2023 10:30-0500Diastolic blood wrwvxyjc15 mm[Hg] Jeremy Magallanes Other [employer] Other 12-26-2023 10:30-0500Systolic blood wewjnrve534 mm[Hg] Jeremy Magallanes Other [employer] Other 11-07-2023 08:45-0500Body .26 cmJeremy Magallanes Other [employer] Other 11-07-2023 08:45-0500Body mass index (BMI) [Ratio] 33.37 kg/o5OheurrJeremy Magallanes Other [employer] Other 11-07-2023 08:45-0500Body lryeabhimbc77.5 [degF]Jeremy Magallanes Other [employer] Other 11-07-2023 08:45-0500Body kzzzfe957.51 kgJeremy Magallanes Other [employer] Other 11-07-2023 08:45-0500Diastolic blood ywseuxsh36 mm[Hg] Jeremy Magallanes Other [employer] Other 11-07-2023 08:45-0500Systolic blood yxqtrots339 mm[Hg] Jeremy Magallanes Other [employer] Other 10-10-2023 10:45-0400Body duhiak746.26 cmJeremy Magallanes Other [employer] Other 10-10-2023 10:45-0400Body mass index (BMI) [Ratio] 33.52 kg/q5UdenegJeremy Magallanes Other [employer] Other 10-10-2023 10:45-0400Body wnmpek235.97 kgMilagromaikel Magallanes Other [employer] Other 10-10-2023 10:45-0400Diastolic blood nttomstj89 mm[Hg] Jeremy Magallanes Other [employer] Other 10-10-2023 10:45-0400Systolic blood rplehuhc459 mm[Hg] Jeremy Magallanes Other [employer] Other 10-04-2023 08:45-0400Body wewovw261.26 cmMilagromaikel Magallanes Other [employer] Other 10-04-2023 08:45-0400Body mass index (BMI) [Ratio] 33.52 kg/f8IijacmJeremy Magallanes Other [employer] Other 10-04-2023 08:45-0400Body zjfpbi736.97 kgMilagromaikel Magallanes Other [employer] Other 10-04-2023 08:45-0400Diastolic blood ewxjqffa08 mm[Hg] Jeremy Magallanes Other [employer] Other 10-04-2023 08:45-0400Systolic blood uzbemwdr560 mm[Hg] Jeremy Magallanes Other [employer] Other 09-12-2023 09:45-0400Body poaqkz280.26 cmJeremy Magallanes Other [employer] Other 09-12-2023 09:45-0400Body mass index (BMI) [Ratio] 34.32 kg/f4MgfemwJeremy Magallanes Other [employer] Other 09-12-2023 09:45-0400Body imdguzcoedi73.2 [degF]Jeremy Magallanes Other [employer] Other 09-12-2023 09:45-0400Body yctuog254.42 kgJeremy Sona Other [employer] Other 09-12-2023 09:45-0400Diastolic blood jrprzosi58 mm[Hg] Jeremy Magallanes Other [employer] Other 09-12-2023 09:45-0400Respiratory rate16 /minJeremy Magallanes Other [employer] Other 09-12-2023 09:45-0400Systolic blood wdtlhnri988 mm[Hg] Jeremy Magallanes Other [employer] Other 07-05-2023 09:15-0400Body ujmglr763.26 cmJeremy Magallanes Other [employer] Other 07-05-2023 09:15-0400Body mass index (BMI) [Ratio] 33.46 kg/b8AfnczyJeremy Magallanes Other [employer] Other 07-05-2023 09:15-0400Body .79 kgJeremy Magallanes Other [employer] Other 07-05-2023 09:15-0400Diastolic blood tprrehnc77 mm[Hg] Jeremy Magallanes Other [employer] Other 07-05-2023 09:15-0400Systolic blood qjonuquy187 mm[Hg] Jeremy Magallanes Other [employer] Other 06-01-2023 08:45-0400Body ilefcp461.26 cmJeremy Magallanes Other [employer] Other 06-01-2023 08:45-0400Body mass index (BMI) [Ratio] 33.37 kg/h1ResegdJeremy Magallanes Other [employer] Other 06-01-2023 08:45-0400Body xjutff271.51 kgJeremy Magallanes Other [employer] Other 06-01-2023 08:45-0400Diastolic blood trjavskl05 mm[Hg] Jeremy Magallanes Other [employer] Other 06-01-2023 08:45-0400Systolic blood lyhzchxz486 mm[Hg] Jeremy Magallanes Other [employer] Other 04-07-2023 09:30-0400Body .26 cmJeremy Magallanes Other [employer] Other 04-07-2023 09:30-0400Body mass index (BMI) [Ratio] 33.96 kg/s9AqxdecJeremy Magallanes Other [employer] Other 04-07-2023 09:30-0400Body fnpuqq770.33 kgJeremy Magallanes Other [employer] Other 04-07-2023 09:30-0400Diastolic blood itbktssg17 mm[Hg] Jeremy Magallanes Other [employer] Other 04-07-2023 09:30-0400Systolic blood mm[Hg] Jeremy Magallanes Other [employer] Other 01-17-2023 11:30-0500Body thooci581.26 cmJeremy Sona Other [facility] Other 01-17-2023 11:30-0500Body mass index (BMI) [Ratio] 33.52 kg/l0Kizstu Sona Other [facility] Other 01-17-2023 11:30-0500Body souspb661.97 kgJeremy Sona Other [facility] Other 01-17-2023 11:30-0500Diastolic blood wgnyimee49 mm[Hg] Jeremy Magallanes Other [employer] Other 01-17-2023 11:30-6029NqO4% (BldA) [Mass fraction]95 % Jeremy Magallanes Other [employer] Other 01-17-2023 11:30-0500Systolic blood feqvcfca629 mm[Hg] Jeremy Magallanes Other [employer] Other 06-21-2022 12:45-0400Body ulzkzy812.26 cmThomas Olexa Other [facility] Other 06-21-2022 12:45-0400Body mass index (BMI) [Ratio] 31.01 kg/e3Hvdbig Olexa Other [facility] Other 06-21-2022 12:45-0400Body .26 kgThomas Olexa Other [employer] Other 10-08-2021 13:15-0400Body rqgepj057.26 cmAmber Ginty Other [facility] Other 10-08-2021 13:15-0400Body mass index (BMI) [Ratio] 31.01 kg/d7Hboxd Ginty Other [employer] Other 10-08-2021 13:15-0400Body qpsgnkgkybd95.3 [degF]Harriet Ginty Other [employer] Other 10-08-2021 13:15-0400Body ooqcuo98.26 kgAmber Ginty Other [employer] Other 10-08-2021 13:15-6536UeD7% (BldA) [Mass fraction]96 % Harriet Ginty Other [employer] Other Encounters Encounter DateEncounter TypeCare ProviderFacilityStart: 05-31-2025 End: 00-56-4397zucruamnsqIfutkc E Braun MD Work Phone: [facility] Work Phone: Start: 05-31-2025 End: 02-71-2944Ctjmhyw encounter procedureJeremy Magallanes MDKet[facility] Health [facility] Work Phone: Start: 05-24-2025 End: 40-11-1194svamruubvkWlavdka Vytautas Giedraitis MDFacility:[facility] Start: 04-26-2025 End: 94-96-1596gguvaoebvsArewpzi Vytautas Giedraitis MDFacility:[facility] Start: 04-05-2025 End: 01-81-2213dltblngqseXaamfvz Vytautas Giedraitis MDFacility:[facility] Start: 95-08-1072Yrwnfne encounter procedureJeremy Magallanes MD Work Phone: [address] [place], [place] [address]tart: 02-16-2025 End: 99-11-4552zojgwgkwjsXufcyh E Braun MD Work Phone: [facility] Work Phone: Start: 02-16-2025 End: 02-71-8695Eixcref encounter procedureJeremy Magallanes MD-[facility] Work Phone: Start: 01-21-2025 End: 21-22-6831yxoignmtlnKilochnxuC[facility] Clinic [facility] Work Phone: Start: 01-21-2025 End: 21-19-6559Tthjmko encounter procedureAnson Community Hospitalros[facility] Work Phone: Start: 56-09-7254Ood-patient / Non-visitFormerly [facility] Work Phone: Start: 12-22-2024 End: 79-91-9321mygmbwkxfhSiohxlwnpCleveland Clinic Union Hospital Work Phone: Start: 12-22-2024 End: 32-54-1146Vicmqul encounter procedureFormerly [facility] Work Phone: Start: 11-23-2024 End: 89-15-8184sjajgrorfjJwggudcMaryuri Pike MDFacility:[facility] Start: 11-04-2024 End: 87-32-3202ylwgammnrjOnum T AMESFacility:FTMCStart: 11-04-2024 End: 07-31-8989Cqiahlo encounter procedureLigia T CHIKIS [facility] Start: 11-04-2024 End: 18-48-2018iwiomhzopkSxuu T AMESFacility:[facility] Start: 10-15-2024 End: 84-51-3069ykikuwzsvnGmgddjtvdCleveland Clinic Union Hospital Work Phone: Start: 10-15-2024 End: 40-84-5933Eewljno encounter procedureFormerly [facility] Work Phone: Start: 18-44-8857Pyz-patient / Non-visitFormerly [facility] Work Phone: Start: 08-91-6705Elo-patient / Non-visitFirlewistons Physician Group-[facility] Work Phone: Start: 23-67-1637Lvl-patient / Non-visitFirlewistons Physician Group-[facility] Work Phone: Start: 08-17-2024 End: 17-28-0481ntyrwxzaudPycgxvpMaryuri Pike MDFacility:SANDRA Ross Start: 07-23-2024 End: 08-16-6345Xjryxfs encounter procedureFormerly [facility] Work Phone: Start: 73-27-4300Ctz-patient / Non-visitFircarilion clinic Physician [facility] Work Phone: Start: 50-61-7160Mmr-patient / Non-visitFirlewistons Physician Group-[facility] Work Phone: Start: 06-17-2024 End: 33-12-5339ejzewcpfenEJ Marcia E Braun Work Phone: [facility] Work Phone: Start: 06-17-2024 End: 18-98-7061Ounqwhe encounter procedureMD Jeremy Magallanes Work Phone: [facility] Work Phone: Start: 06-12-2024 End: 15-81-5355Cxlfmo OnlyNot In System Ref ProvProMedica Physicians General SurgeryStart: 06-10-2024 End: 94-66-6668Krxtmx OnlyRosalia Shea RMAProMedica Physicians General SurgeryComment on above:Dysphagia, unspecified type; Black stoolsStart: 06-03-2024 End: 09-98-5072txpolrmffyBO Marcia E Braun Work Phone: [facility] Work Phone: Start: 06-03-2024 End: 79-40-5481Kpdqbktx ReferredMD Jeremy Magallanes Work Phone: [facility]-LAB Path Spec [facility] HospStart: 28-18-8938Dwh-patient / Non-visitMD Jeremy Magallanes Work Phone: [facility] GroupHigh[facility] Work Phone: Start: 05-27-2024 End: 44-02-8572Wzltjl outpatient new 30 minutesP[facility] TYPING POOL SUPERVISOR-[facility] Work Phone: [facility] Physicians General SurgeryComment on above: Dysphagia, unspecified type (Primary Dx); Black stools; Gastroesophageal reflux disease, unspecified whether esophagitis present; Abnormal esophagramStart: 05-27-2024 End: 58-33-8802qkvrhcvracTJNIUEGIsland Hospital [facility] Start: 05-14-2024 End: 14-43-4128Vfefxjjqv encounterToms Marc JACOB Work Phone: General SurgeryComment on above:New Patient; Release Specialist - OtherStart: 05-04-2024 End: 34-53-3396Rjofgcpga encounterMalathi Sanchez MD Work Phone: [facility] CI ENTStart: 04-08-2024 End: 23-20-9612Cztloopwu Result EncounterHisintia Sanchez MD Work Phone: [facility] External Department UnsolicitedStart: 04-08-2024 End: 56-50-4237Bgqkyjjum Result EncounterMalathi Sanchez MD Work Phone: [facility] External Department UnsolicitedStart: 04-07-2024 End: 74-21-9512Rizmpo flowsheetMalathi Sanchez MD Work Phone: [facility] CI ENTStart: 04-07-2024 End: 82-72-2925Ftorux flowsheetMalathi Sanchez MD Work Phone: [facility] ENTStart: 04-07-2024 End: 06-04-3879Vfpmpm outpatient new 45 minutesMalathi Sanchez MD Work Phone: [facility] CI ENTComment on above:Esophageal dysphagia (Primary Dx); Neck massStart: 04-07-2024 End: 98-83-6388wnnraxqspuMNKTFU H TIMMISNot AvailableStart: 03-18-2024 End: 22-81-2246gaedyenrbcHzlaasoyiCleveland Clinic Union Hospital Work Phone: Start: 03-18-2024 End: 26-01-4425Jxwqejw encounter procedureFormerly [facility] Work Phone: Start: 03-03-2024 End: 64-65-4637zjsygdswtvTjeywupiqGlenbeigh Hospital Work Phone: Start: 03-03-2024 End: 49-19-5081Ivgwdmv encounter procedureFormerly [facility] Work Phone: Start: 00-40-7717Tny-patient / Non-visitFormerly [facility] Work Phone: Start: 12-17-2023 End: 78-89-5400wfykfhhzosQsabfoojaGlenbeigh Hospital Work Phone: Start: 12-17-2023 End: 60-71-1556Cxhqjdq encounter procedureFormerly [facility] Physician GroupKettering Health [facility] Work Phone: Start: 12-05-2023 End: 12-36-1684pyxaynqfccApxprqpxeGlenbeigh Hospital Work Phone: Start: 12-05-2023 End: 65-78-0360Znbtfub encounter procedureFormerly [facility] Work Phone: Start: 43-49-5417Krj-patient / Non-visitFormerly [facility] Work Phone: start: 89-02-1716Mun-patient / Non-visitMendoza Physician Group-[facility] Work Phone: Start: 10-07-2023 End: 88-77-1262rdjevldjcdKKJOZ A POCOSNot AvailableStart: 09-18-2023 End: 91-04-2924ryxvydpfrcSolmhb Braun Other [employer] Other Start: 51-35-9795Cfopznkzs encounterMarbenton SonaTogus VA Medical Centertart: 09-13-2023 End: 56-76-3102tjiasebiivBndelw Braun Other [employer] Other Start: 93-98-0552Grqtbw outpatient visit 15 minutes Jeremy [facility]: 09-13-2023 End: 47-97-5731Ykftltr encounter procedureFormerly [facility]-Start: 35-31-2444Tgbypeqdn encounterArgentina Clinton PT Work Phone: [facility] CI PTComment on above:re: PT Eval (He [...] lm. Requested call back reinier.)Start: 09-10-2023 End: 48-65-4789qreqlffytnGdrwxj Braun Other noSendbloom Other Start: 02-08-2033Zxnqfhrqu encounterMarcia Jori [facility] ClinicStart: 09-06-2023 End: 24-24-5557cvwjqgqhvjBqmbdz Magallanes Other noSendbloom Other Start: 30-60-2119Lxhyhgwhi encounterMarcia Jori [facility] ClinicStart: 09-02-2023 End: 36-67-5899qpoggyaxbkSCHJX A POCOSNot AvailableStart: 08-20-2023 End: 08-05-3337hpjqyvaocsEmyqgl Magallanes Other [employer] Other Start: 46-68-6806Kdcitkklr encounterMarcia Jori [facility] Medical ClinicStart: 08-13-2023 End: 65-53-1123gztseyljepCvkdow Magallanes Other noSendbloom Other Start: 14-36-1170Elfjvc outpatient visit 25 minutes Jeremy [facility] ClinicStart: 18-40-1660Baiaszgwx encounterMarcia Jori [facility] ClinicStart: 08-06-2023 End: 61-13-8245hxzxjxvatqHlutql Magallanes Other [employer] Other Start: 15-62-0919Rphihykrr encounterMarcia LatanyaG [facility] ClinicStart: 07-29-2023 End: 38-23-8401yuuwwzqodtSYXCD A POCOSNot AvailableStart: 07-22-2023 End: 61-52-6889mripgkhdckRixvlx Magallanes Other noSendbloom Other Start: 90-03-3848Hmkgjpyex encounterMarcia LatanyaG [facility] ClinicStart: 07-19-2023 End: 09-86-2156xefkjwtfsqIggffb Magallanes Other noSendbloom Other Start: 48-33-6943Gwbtxgmwg encounterMarcia Jori [facility] ClinicStart: 07-18-2023 End: 79-67-1242wfotzkxoqdBqprno Magallanes Other [employer] Other Start: 50-27-3609Mwingigbq encounterMarcia Jori [facility] ClinicStart: 07-02-2023 End: 67-93-4067jrpcoyfnwiJewpdj Magallanes Other [employer] Other Start: 06-53-4320Gkxquq outpatient visit 15 minutes Jeremy [facility] ClinicStart: 81-18-5983Ildkiaawd encounterMarcia Jori [facility] ClinicStart: 06-25-2023 End: 72-30-7186ayqxhovsfpPvzsvc Magallanes Other [facility] [employer] Other Start: 79-72-4700Qobzko outpatient visit 15 minutes [facility] ClinicStart: 06-21-2023 End: 94-32-4707cbdjwpixmlPevgpo Magallanes Other [facility] [employer] Other Start: 46-46-6880Mpeecydes by computer linkJeremy [facility] Medical ClinicStart: 06-20-2023 End: 70-11-0176xtukelkxkxYhvccj Magallanes Other [facility] [employer] Other Start: 54-21-1782Gxgntndrf encounterMarcia Jori [facility] ClinicStart: 06-17-2023 End: 65-76-3690gwjaegupcqHfpgst Magallanes Other [employer] Other Start: 15-97-5077Xnqmeoonj encounterMarcia Jori [facility] ClinicStart: 06-10-2023 End: 46-35-1534jibwytqmtiCczizw Magallanes Other [employer] Other Start: 89-62-0400Yumfqqees encounterMarcia Jori [facility] ClinicStart: 06-03-2023 End: 95-76-9856bdpyuigebvRkcfsx Magallanes Other [employer] Other Start: 12-37-8232Gwzlwhkxp encounterMarcia Jori [facility] ClinicStart: 05-30-2023 End: 16-89-6073Mawdmjq encounter procedureDavid A Pocos [facility] Start: 05-28-2023 End: 98-74-2040kdwegwtesbGgdagz Magallanes Other [employer] Other Start: 88-84-1180Yxouxd outpatient visit 15 minutes [facility] ClinicStart: 2023 End: 16-34-1825syueqlfkqdRpkqjj Magallanes Other [facility] [employer] Other Start: 11-10-1978Rcvevo outpatient visit 15 minutes [facility] ClinicStart: 05-16-2023 End: 12-70-1525mmmknvijxkDdbztt Magallanes Other [employer] Other Start: 20-55-9039Vjhwcnjrg encounterMarcia Jori [facility] ClinicStart: 04-30-2023 End: 85-82-0072xjzxaqdtxrOsxhly Magallanes Other [employer] Other Start: 42-32-7508Wxscng outpatient visit 15 minutes [facility] ClinicStart: 04-26-2023 End: 37-14-5766vrzybtnylfZnzzcg Magallanes Other [employer] Other Start: 37-84-7740Oiwbfdcyr encounterMarcia LatanyaG [facility] ClinicStart: 04-23-2023 End: 52-07-4637ywvfteflitLrdkws Magallanes Other [employer] Other Start: 89-54-7959Euwotbkdy encounterMarcia LatanyaG [facility] ClinicStart: 03-25-2023 End: 94-22-1260zbpnqdzxphShfwjx Magallanes Other [employer] Other Start: 38-59-3194Btkdycjub encounterMarcia [facility]onaLa [facility] ClinicStart: 03-06-2023 End: 36-78-7486lvlyswuyxdBljoxz Magallanes Other [employer] Other Start: 66-72-1480Vwtcjmnet encounterMarcia LatanyaAdventhealth [facility] Er Medical ClinicStart: 02-20-2023 End: 07-97-3040vfruipsndkPbulso Magallanes Other [employer] Other Start: 83-48-7342Pzfmlf outpatient visit 25 minutes Jeremy [facility]anesKind[facility] ClinicStart: 02-05-2023 End: 96-93-3940lqwqrlfxfjCxrdyx Magallanes Other [employer] Other Start: 24-67-5638Anflowajv encounterMarcia LatanyaAdventhealth [facility]ch[facility] Er Medical ClinicStart: 01-21-2023 End: 23-97-5407anokjdlytaAisipj Magallanes Other [employer] Other Start: 80-24-4289Yxeceupsz encounterMarcia LatanyaG Referral CoordinatorStart: 01-17-2023 End: 30-67-8948bymmdpxmnlFniwnd Magallanes Other [employer] Other Start: 18-65-9106Hcjbyn outpatient visit 15 minutes [facility] ClinicStart: 12-24-2022 End: 46-50-1886esxjejthqcUqjhhl Magallanes Other [employer] Other Start: 09-85-5846Thuatuwte encounterMarcia Jori [facility] ClinicStart: 12-03-2022 End: 80-25-6769xjyuibpswaNeurrr Magallanes Other [employer] Other Start: 97-93-1880Boxvivbsm encounterMarcia SonaYamini [facility] ClinicStart: 11-27-2022 End: 67-52-5294fmkvtubqfzDyhuym Magallanes Other [employer] Other Start: 61-34-8913Rsyksdfoi encounterMarcia Jori [facility] ClinicStart: 11-26-2022 End: 89-25-3368lsvvufigcrPlyryz Magallanes Other [employer] Other Start: 28-78-2648Yabajyyrg encounterMarcia SonaFLORENCE [facility] ClinicStart: 11-24-2022 End: 05-45-2811zrekwcnafoBM JEREMY MAGALLANESFacility:X8Jqjdo: 11-23-2022 End: 36-31-5239hzshwchrioJviwlq Magallanes Other [employer] Other Start: 92-93-6582Zilfjz outpatient visit 15 minutes [facility] ClinicStart: 11-05-2022 End: 50-64-9456paaqiuemazDcooak Magallanes Other [employer] Other Start: 17-99-9913Bvtqhhzoy encounterMarcia SonaG [facility] ClinicStart: 10-03-2022 End: 98-96-5603ylqwpxyjvfBpctji Braun Other [employer] Other Start: 66-06-2808Gsahytquh encounterJeremy Hsieh [facility] ClinicStart: 09-04-2022 End: 12-32-1037xdxrdmlhgfVsxmmz Braun Other [facility] [employer] Other Start: 22-50-2339Jrdpxj outpatient visit 25 minutes Jeremy SonaDIMAS [facility] ClinicStart: 88-04-2089fnyqhmmbthUB JEREMY MAGALLANES Facility:O2Fmtji: 07-19-2022 End: 77-03-0100ahucjrvqqeQX WILFREDO KADIEFacility:I4Clpex: 06-07-2022 End: 77-90-5498lsngioanoxOX JEREMY MAGALLANESFacility:B0Vnbes: 11-62-8037zyikfsurpu KESHA OLEXAFacility:Z8Kvrcx: 02-06-2022 End: 99-53-8128dyoiyqkycyRniejk Olexa Other [employer] Other Start: 98-69-0627Gsuedf outpatient visit 25 minutes Kesha Medley [place] [facility]Start: 02-02-2022 End: 31-48-6750eqwzxakeghWZEHQS OLEXAFacility:X1Jsqyc: 12-28-2021 End: 09-09-9591ljkfxusjngTW JEREMY MAGALLANESFacility:R6Brlil: 12-12-2021 End: 19-88-5914jlkbxjzwomRBMREK OLEXANort [employer] Other Start: 53-62-9261Cbxzvi outpatient new 30 minutes Kesha Bernal [facility] [place]vueStart: 19-61-5015Hcueva outpatient visit 15 minutesAmber GintyFPG [facility] Jerry Procedures DateProcedureProcedure DetailPerforming ClinicianStart: 06-03-2024 EsophagogastroduodenoscopyJelaure Benites TYPING POOL SUPERVISOR-LEATHER SCRUBBER Work Phone: Start: 21-90-7225Vullp i surg pathology gross examination onlyNot In System Ref ProvStart: 48-68-3397TTKHUNUQ LABSNot In System Ref ProvStart: 72-52-8467OU videography Hypopharynx and Esophagus Views for swallowing function W speech and W barium contrast POMalathi Sanchez MD Work Phone: Start: 51-22-2353GY CINERADIOGRAPHYMalathi Sanchez MD Work Phone: Start: 28-71-1466Gmipslqsat test result abnormalMarcia Magallanes Other Start: 51-62-7254Esnbwvl of sutureMarcia Magallanes Other Start: 54-84-7825Clfjpefas for malignant neoplasm of prostateMarcia Magallanes Other Screening for malignant neoplasm of colonMarcia Magallanes Other Screening for malignant neoplasm of prostateMarcia Magallanes Other Plan of Treatment DateCare ActivityDetailAuthorStart: 21-25-7514UXdK,Tdap and Td Vaccines (3 - Td or Tdap)DTaP,Tdap and Td Vaccines (3 - Td or Tdap)[facility] SystemStart: 26-44-7489Puflg BMI ScreeningAdult BMI ScreeningProAdams County Hospitalca Health SystemStart: 91-06-9860Dqiodmd ScreeningTobacco ScreeningProAdams County Hospitalca Health SystemStart: 33-79-3967Rxdcsif referralTrihealth Work Phone: Start: 83-97-3788Cpucnnsvd vaccinationInfluenza VaccineProSoutheast Health Medical Center Health SystemStart: 04-07-2024 End: 57-82-5126Zqeahwt encounter gbszwpuqb64/20/2024 10:30 AM EDT Office Visit [facility] [address] [place] [address] Malathi Sanchez MD [address] [place], [place] [id number] ArrivedNOMS CI ENTComment on above:ArrivedStart: 74-02-3152Rmqroxz referralTrihealth Work Phone: Start: 10-07-2023 End: 40-69-4194Msscjks encounter yiihbcqtl80/19/2024 8:00 AM EST Office Visit [facility] [address] [place] [address] Barbie Jesus DO [address] [place] [address] [facility] ORTHOStart: 79-19-9957Lrzmyrsikwieid of varicella zoster vaccineZoster (Shingles) Vaccine (1 of 2)[facility] SystemStart: 51-28-9850Qtoup BMI Follow Up PlanAdult BMI Follow Up PlanProHenry County Hospital SystemStart: 12-16-8119Nqebrnhnrc ScreeningDepression ScreeningProHenry County Hospital SystemStart: 76-11-5129Mcoynol CounselingTobacco CounselingProHenry County Hospital SystemComprehensive metabolic 2000 panel - Serum or PlasmaChillicothe Va Medical CenterCT Chest WO contrastChillicothe Va Medical CenterCT Neck W contrast [facility] End: 79-90-0529DzjgvmxysjoeputgdknlrnwtcaFMY GI Routine Dysphagia, unspecified type Black stools 1 Occurrences starting 05/27/2024 until 05/27/2025[facility] Work Phone: Comment on above:1 Occurrences starting 05/27/2024 until 05/27/2025Patient referralTrihealth Work Phone: [facility] Chest 2 [facility] - bilateral [facility] Immunizations Immunization DateImmunizationNotesCare LlgledqaPnwiiact11-50-3613Sftgxtbjx, injectable, Madin Wapella Canine Kidney, preservative free, quadrivalentPamela Oz PT Work Phone: [facility] HospitalGedrspqzhm34-17-3341gbyjidzeg virus vaccine, unspecified formulationPriyanka Benites TYPING POOL SUPERVISOR-LEATHER SCRUBBER Work Phone: [facility], AvonEiafzf10-48-2351bdnaapasl virus vaccine, split virus (incl. purified surface antigen)Jeremy Magallanes Other [place] [employer] Other 09-895087-48-6980kaaghwkdn virus vaccine, unspecified formulationChillicothe Va Medical Center09-28-2017influenza, injectable, quadrivalent, preservative freePamela Clinton PT Work Phone: [facility] HospitalJzgdaxosej20-28-9185wveomknib, injectable, quadrivalent, preservative freePamela Clinton PT Work Phone: [facility] HospitalGeftjgxadm06-78-8587froahhu and diphtheria toxoids, adsorbed, preservative free, for adult use (5 Lf of tetanus toxoid and 2 Lf of diphtheria toxoid)Jeremy Magallanes Other [facility]10-07-2015influenza, seasonal, injectable, preservative freePamela Clinton PT Work Phone: [facility] HospitalIgzfwdrduh51-53-8653bohbmmj and diphtheria toxoids, adsorbed, preservative free, for adult use (5 Lf of tetanus toxoid and 2 Lf of diphtheria toxoid)Jeremy Magallanes Other [facility]10-28-1999 pneumococcal conjugate vaccine, 7 valentPamela Oz PT Work Phone: [facility] Payers DatePayer CategoryPayerPolicy ID2021Medicaid [id number] 2013Medicare [id number] 2.16840.1.870394.3.57[id number] 2.16.840.1.597587.3.57[id number] 2.16.840.1.991984.3.57[id number] 2.16.840.1.022907.3.57[id number] 2.16.840.1.116392.3.57[id number] 2.16.840.1.547510.3.57[id number] 2.16.840.1.261893.3.57[id number] 2.16.840.1.599319.3.57[id number] 2.16.840.1.223953.3.57[id number] 2.16.840.1.264471.3.57[id number] 2.16.840.1.704853.3.57[id number] 2.16.840.1.130670.3.57[id number] 2.16.840.1.387721.3.57[id number] 2.16.840.1.326972.3.57[id number] 2.16.840.1.790646.3.57[id number] 2.16.840.1.751772.3.579.[id number] 2.16.840.1.023308.3.57[id number] 2.16.840.1.524839.3.57[id number] 2.16.840.1.438573.3.57[id number] 2.16.840.1.366903.3.579.[id number] 2.16.840.1.504466.3.579.2.196 [id number] 2.16.840.1.500728.19 [id number] 2.16.840.1.094580.19Self-pay [id number] Social History DateTypeDetailFacilityStart: 09-02-2023 End: 77-50-6278Wdh Assigned At [facility] HospitalTobacco smoking statusClinton Memorial Hospitaltart: 03-27-2023 End: 15-22-8734Vhbrpyv smoking status NHISSmokes tobacco dailyNONE Healthcare Work Phone: History of tobacco useCigarette SmokerNOMS Healthcare Start: 03-27-2023 End: 08-08-9169Zkqlhmcsev smoked current (pack per day) - Reported0.5N[facility]S HealthcareStart: 03-27-2023 End: 34-99-1100Wcnvalv use and exposureSmokeless tobacco non-userNOMS Healthcare Start: 09-02-2023 End: 21-43-7207Jlpgvxu intakeLifetime non-drinker (finding)[facility] HealthcareStart: 19-15-0427Ofveihx CommentCaffine- SodaNOMS HealthcareStart: 32-36-9258Vnc Assigned At [facility] HealthcareStart: 56-13-0271Uwnlcf identityIdentifies as male gender (finding)[facility] HealthcareStart: 34-54-9513Rndmwp orientation Heterosexual (finding)[facility] HealthcareStart: 02-06-2017 End: 65-30-1601Qjiqoum smoking status NHISEx-smoker (finding)[facility] Medical CenterTobacco smoking status NHISTobacco smoking consumption unknown [facility] Hospitaltart: 72-32-0745Rff assigned at birthNot on filePike Community Hospitaltart: 10-34-3604Plmffxbwp of Alcohol ConsumptionNeverNNORTHWEST [facility] Start: 06-01-2019 End: 17-44-8296XoxKmne (finding)[facility], Cancer CenterTransMed SystemsPhillips Eye Institute [employer] Medical Equipment Procedure CodeEquipment CodeEquipment Original TextEquipment IdentifierDates Accu-Chek FastClix Lancet -Blood Sugar Diagnostic (Accu-Chek Ya Plus Test Strp) stripStart: 73-69-6594Ndrznpu (Accu-Chek Fastclix Lancet Drum) miscStart: 70-74-3218Jkiau Sugar Diagnostic (Accu-Chek Ya Plus Test Strp) stripStart: 11-04-2024 End: 38-08-5702Hwsmu Sugar Diagnostic (Accu-Chek Ya Plus Test Strp) strip Start: 11-05-2024 End: 42-62-8643Pkulp Sugar Diagnostic (Accu-Chek Ya Plus Test Strp) strip Start: 11-05-2024 End: 93-29-5818Lniolpj (Accu-Chek Fastclix Lancet Drum) miscStart: 10-26-2024 End: 12-10-4352Ppwmput (Accu-Chek Fastclix Lancet Drum) miscStart: 10-27-2024 End: 74-80-3255Gqord Sugar Diagnostic (Accu-Chek Ya Plus Test Strp) strip Start: 64-30-3824Xzbvcly (Accu-Chek Fastclix Lancet Drum) miscStart: 10-28-2024 Blood Sugar Diagnostic (Accu-Chek Ya Plus Test Strp) stripStart: 11-04-2024 End: 39-05-6510Nnecf Sugar Diagnostic (Accu-Chek Ya Plus Test Strp) strip Start: 11-05-2024 End: 01-59-9399Tdouf Sugar Diagnostic (Accu-Chek Ya Plus Test Strp) strip Start: 11-05-2024 End: 31-56-0486Zoturqj (Accu-Chek [employer]ix Lancet Drum) miscStart: 10-26-2024 End: 12-83-5840Nogrtua (Accu-Chek [employer] Lancet Drum) miscStart: 10-27-2024 End: 08-72-0237Hccwd Sugar Diagnostic (Accu-Chek Ya Plus Test Strp) strip Start: 57-21-3015Vakyccd (Accu-Chek [employer] Lancet Drum) miscStart: 10-28-2024 Blood Sugar Diagnostic (Accu-Chek Ya Plus Test Strp) stripStart: 11-04-2024 End: 41-84-2615Hbkdh Sugar Diagnostic (Accu-Chek Ya Plus Test Strp) strip Start: 11-05-2024 End: 85-67-7027Ardsb Sugar Diagnostic (Accu-Chek Ya Plus Test Strp) strip Start: 11-05-2024 End: 68-28-0521Gquwvcy (Accu-Chek [employer]ix Lancet Drum) miscStart: 10-26-2024 End: 22-21-2772Xafzvla (Accu-Chek [employer] Lancet Drum) miscStart: 10-27-2024 End: 32-71-6775Hqmgg Sugar Diagnostic (Accu-Chek Ya Plus Test Strp) strip Start: 97-36-8823Quzmpum (Accu-Chek [employer] Lancet Drum) miscStart: 10-28-2024 Blood Sugar Diagnostic (Accu-Chek Ya Plus Test Strp) stripStart: 11-04-2024 End: 64-47-6475Zstmz Sugar Diagnostic (Accu-Chek Ya Plus Test Strp) strip Start: 11-05-2024 End: 92-93-1307Mplmi Sugar Diagnostic (Accu-Chek Ya Plus Test Strp) strip Start: 11-05-2024 End: 41-14-9497Neepmho (Accu-Chek [employer] Lancet Drum) miscStart: 10-26-2024 End: 80-93-3799Hsktxek (Accu-Chek Fast[employer]ix Lancet Drum) miscStart: 10-27-2024 End: 10-28-2024 Clinical Notes 05-26-2021 to 12-22-2024 Note Date & JnahKguwKfvlkgsv51-27-4401 Evaluation note* Diagnosis Onset Date Resolution Status Admit Date Bronchitis acuteMay 2024 8:19amBruisingacuteMay 2024 8:19amEnlarged prostateacute December 22, 2024 8:19amScreening PSA (prostate specific antigen)acuteMay 2024 8:19amType II diabetes mellitusacuteMay 2024 8:19am [facility] Work Phone: 1(770) 245-197605-06-2025 Evaluation note* Diagnosis Onset Date Resolution Status Admit Date Bronchitis acuteMay 2024 8:19amBruisingacuteMay 2024 8:19amEnlarged prostateacute December 22, 2024 8:19amScreening PSA (prostate specific antigen)acuteMay 2024 8:19amType II diabetes mellitusacuteMay 2024 8:19amBronchitisacuteJune 2024 9:26am [facility] Work Phone: 1(455) 154-650503-19-2025 NoteProgress Note-Nurse LVM to talk about A1C level, he will be getting a one year card but will have to talk with his PCP about getting that number down.[facility] 10-15-2024 Evaluation note* Diagnosis Onset Date Resolution Status Admit Date Bladder diverticulum acuteFebruary 2024 8:52amEnlarged prostateacuteFebruary 2024 8:52am LymphadenopathyacuteFebruary 2024 8:52amUrticariaacuteFebruary 2024 8:52amBruisingacuteMay 2024 8:19amEnlarged prostateacuteMay 2024 8:19amScreening PSA (prostate specific antigen)acuteMay 2024 8:19amType II diabetes mellitusacuteMay 2024 8:19am [facility] Work Phone: 1(167) 232-685012-05-2024 Evaluation note* Diagnosis Onset Date Resolution Status Admit Date GERD (gastroesophageal reflux disease) acuteDecember 2023 10:18amLymphadenopathyacuteDecember 2023 10:18am Mass of left submandibular regionacuteDecember 2023 10:18amBladder diverticulumacuteFebruary 2024 8:52amEnlarged prostateacuteFebruary 2024 8:52amLymphadenopathyacuteFebruary 2024 8:52am [facility] Work Phone: 1(327) 473-294410-25-2024 Miscellaneous Notes* Telephone Encounter - Evelyn Mendoza [...] with patient. documented in this encounterSelect [facility]-25-20[facility] Telephone encounter Note* Telephone Encounter - Evelyn [...] risk of esophageal cancer. Thanks, Dr. Kc [employer]10-25-2024 Telephone encounter Note* Telephone Encounter - Evelyn Mendoza CMA - 06/12/2024 12:00 PM EDT Spoke with patient regarding pathology results. Patient verbally understood with no further questions. 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 Address verified with patient. [employer]10-09-2024 History of Present illness Narrative* Priyanka Benites, TYPING POOL SUPERVISOR-LEATHER SCRUBBER - 05/27/2024 2:30 PM EDT Images from [...] gallbladder polyp. He saw Dr. Martinez in [place] for this. He also reports a positive [...] confusion. Past Medical History: Diagnosis Date Cancer ([facility]) Chronic back pain COPD (chronic obstructive pulmonary disease) ([facility]) Dental disease full dentures Diabetes mellitus ([facility]) Shortness of breath Skin cancer MELANOMA [...] patient/family/caregiver Referring and communicating with other health outdoor emergency care technician Dysphagia, unspecified type [R13.10] CHARLEE BIGGS [facility] [place] This note was created with the assistance of a speech recognition program. While intending to generate a timely document that accurately reflects the content of the visit, no guarantee can be provided that every grammatical or spelling mistake has been or will be identified or corrected. Thank you for your understanding. CHARLEE Biggs 05/27/24 1555 documented in this encounterSelect Medical [facility] [place]09-27-2024 Telephone encounter Note* Telephone Encounter - Vivian Siddiqui - 05/15/2024 11:35 AM EDT Images from the original note were not included. Consult from Dr. Jeremy Magallanes (Internal Medicine) [facility] Referral received from PCP [...] completed: 04/08/2024 Barium Swallow 03/21/2024 CT Chest [facility]09-27-2024 Miscellaneous Notes* Telephone Encounter - Vivian Siddiqui - 05/15/2024 11:35 AM EDT Images from the original note were not included. Consult from Dr. Jeremy Magallanes (Internal Medicine) [facility] Referral received from PCP [...] not included. Referral was sent from [facility] for new consult with Dr Tran Please see below and advise documented in this encounterSelect [facility]09-26-2024 Telephone encounter Note * Telephone Encounter - Keily Martines - 05/14/2024 1:07 PM EDT Images from the original note were not included. Referral was sent from [facility] for new consult with Dr Tran Please see below and advise [facility]09-16-2024 Telephone encounter Note* Telephone Encounter - Cynthia Sanchez - 05/04/2024 9:45 AM EDT Left message on sister's voice mail to contact Dr Magallanes's office for referral. [facility] HospitalWhoydpfawp18-15-2130 Miscellaneous Notes* Telephone Encounter - Cynthia Sanchez [...] referral sent to Dr Ameya Tran at [facility]. He is a gastrologist. The fax number is [phone] . Pt's sister would like a call back at [phone]. documented in this encounterChildren's Mercy HospitalJxdiqwjmee30-04-9974 Telephone encounter Note* Telephone Encounter - Malathi Sanchez MD - 05/04/2024 9:27 AM EDT That needs to be done by Dr Magallanes's office [facility] HospitalWgggqszcln93-55-0598 Telephone encounter Note* Telephone Encounter - Cynthia Sanchez - 05/04/2024 9:15 AM EDT Pt's sister called in. She said her brother would like a referral sent to Dr Ameya Tran at [facility]. He is a gastrologist. The fax number is [phone] . Pt's sister would like a call back at [phone]. [facility] HospitalUqvnjanjmy60-11-3396 History of Present illness Narrative* Malathi Sanchez MD - 04/07/2024 10:30 AM EDT Subjective Patient ID: Alex Ziegler is a 63 y.o. male who presents for Neck Mass (CT @ [facility] 02/26>[facility]) Pt reports he is getting [...] resolved. F/U if recurs documented in this [facility]02-14-2024 Telephone encounter Note* Telephone Encounter - Maris Tavera - 10/02/2023 1:35 PM EST No attempts to hear back; closing referral. [facility] HospitalKjoqvstgxi85-98-5602 Miscellaneous Notes* Telephone Encounter - Maris Tavera - 10/02/2023 1:35 PM EST No attempts to hear back; closing referral. documented in this [facility]01-26-2024 Evaluation note* Encounter Date Diagnosis Assessment Notes Treatment Notes Treatment Clinical Notes Aug, Chronic obstructive pulmonary disease, unspecified (ICD-10 - J44.9) Finish antibiotics and prednisone as prescribed. Denies pulmonary referral at this time. Hasn't smoked since 09/08 and declines chantix or patches. Aug,urrent smoker (ICD-10 - F17.200) [employer] Other 01-23-2024 Evaluation note* Encounter Date Diagnosis Assessment Notes Treatment Notes Treatment Clinical Notes Aug, Lumbar radicular pain (ICD-10 - M54.16) [employer] Other 01-19-2024 Evaluation note* Encounter Date Diagnosis Assessment Notes Treatment Notes Treatment Clinical Notes Aug, Lumbar radicular pain (ICD-10 - M54.16) [employer] Other 12-26-2023 Evaluation note* Encounter Date Diagnosis Assessment Notes Treatment Notes Treatment Clinical Notes Jul, Type 2 diabetes britton itus with hyperglycemia, without long-term current use of insulin (ICD-10 - E11.65) [employer] Other 12-26-2023 Evaluation note* Encounter Date Diagnosis [...] T3s after shoulder pain has improved post-operatively. [employer] Other 12-04-2023 Evaluation note* Encounter Date Diagnosis Assessment Notes Treatment Notes Treatment Clinical Notes Jul, Type 2 diabetes britton itus with hyperglycemia, without long-term current use of insulin (ICD-10 - E11.65) [employer] Other 12-01-2023 Evaluation note* Encounter Date Diagnosis Assessment Notes Treatment Notes Treatment Clinical Notes Jul, Type 2 diabetes britton itus with hyperglycemia, without long-term current use of insulin (ICD-10 - E11.65) [employer] Other 11-30-2023 Evaluation note* Encounter Date Diagnosis Assessment Notes Treatment Notes Treatment Clinical Notes Jun, Labral tear of shoul shiela, right, subsequent encounter (ICD-10 - S43.431D) [employer] Other 11-14-2023 Evaluation note* Encounter Date Diagnosis [...] chest pain (ICD-10 - R07.9)r/o cardiac cause [facility] 11-07-2023 Evaluation note* Encounter Date Diagnosis [...] to decrease dose and possibly discontinue medication. [facility] 11-02-2023 Evaluation note* Encounter Date Diagnosis Assessment Notes Treatment Notes Treatment Clinical Notes Jun, Acute pain of right shoulder (IC D-10 - M25.511) [facility] 10-30-2023 Evaluation note* Encounter Date Diagnosis Assessment Notes Treatment Notes Treatment Clinical Notes May, Acute pain of right shoulder (IC D-10 - M25.511) [facility] 10-23-2023 Evaluation note* Encounter Date Diagnosis Assessment Notes Treatment Notes Treatment Clinical Notes May, Acute pain of right shoulder (IC D-10 - M25.511) [facility] 10-16-2023 Evaluation note* Encounter Date Diagnosis Assessment Notes Treatment Notes Treatment Clinical Notes May, Acute pain of right shoulder (IC D-10 - M25.511) [facility] 10-10-2023 Evaluation note* Encounter Date Diagnosis Assessment Notes Treatment Notes Treatment Clinical Notes May, Acute pain of right shoulder (IC D-10 - M25.511) MRI and surgery planning pending. Pt understands this is a controlled substance and to call in 1 week w update on treatment plan. May,ronchitis (ICD-10 - J40)Finish antibiotic, rest, hydrate Steroids for wheezing. [facility] 10-04-2023 Evaluation note* Encounter Date Diagnosis Assessment Notes Treatment Notes Treatment Clinical Notes May, Acute pain of right shoulder (IC D-10 - M25.511) Reviewed [place] and discussed short term plan of increase in pain medication. He is due for a refillof the T3s presently. Stop them, replace w norco. Pt understands weekly prescription and will need to d/c after anticipated surgery. [facility] 09-12-2023 Evaluation note* Encounter Date Diagnosis [...] office and the ER visit on 04/26 [facility] 07-05-2023 Evaluation note* Encounter Date Diagnosis [...] cymbalta and willneed less prn pain med. [facility] 06-01-2023 Evaluation note* Encounter Date Diagnosis Assessment Notes Treatment Notes Treatment Clinical Notes Jan, RUQ pain (ICD-10 - R10.11) Discussed differential. continues to decline c-scope. start w labs and GBUS. Jan,Other chronic pain (ICD-10 - G89.29) Jan,ain in right shoulder (ICD-10 - M25.511)Pt requests referral to Dr. Jesus - [facility] for intrarticular injections. Jan,ain in left shoulder (ICD-10 - M25.512)as above. [facility] Other 04-17-2023 Evaluation note* Encounter Date Diagnosis Assessment Notes Treatment Notes Treatment Clinical Notes Nov, Bronchitis (ICD-10 - J40) [facility] 04-11-2023 Evaluation note* Encounter Date Diagnosis Assessment Notes Treatment Notes Treatment Clinical Notes Nov, Disc degeneration, lumbar (ICD-1 0 - M51.36) Nov,Lumbar radicular pain (ICD-10 - M54.16) [facility] 04-07-2023 Evaluation note* Encounter Date Diagnosis [...] quit smoking. Pt verbalizes understanding and agreement. [facility] 02-15-2023 Evaluation note* Encounter Date Diagnosis Assessment Notes Treatment Notes Treatment Clinical Notes Sep, Lumbar radicular pain (ICD-10 - M54.16) [facility] 01-17-2023 Evaluation note* Encounter Date Diagnosis [...] is outlined on the test result page. [facility] Other 10-20-2022 NoteIndication: Calculus in kidney. Comparison: [...] by: JOHN PINTO Date: 2022-06-07 20:07[facility]06-21-2022 Evaluation note* Encounter Date Diagnosis Assessment [...] of infection, hardware pullout, cuff repair failure, ferry terminal agent pain and stiffness are well known problems [...] of repair, infection and wound healing delays. [facility] Other 04-26-2022 NotePROCEDURE: XR SHOULDER LT 2V or > COMPARISON: None. HISTORY: Pain of left shoulder joint FINDINGS: BONES:No acute fracture or dislocation. 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 No visible soft tissue swelling. EFFUSION:None visible. OTHER: Negative. IMPRESSION: Mild osteoarthritis Electronically authenticated by: BARBIE MEMBRENO Date: 2021-12-12 15:25[facility]* Encounter Date Diagnosis Assessment Notes [...] pain of left shoulder (ICD-10 - M25.512) [employer] [employer] Other 10-08-2021 Evaluation note* Encounter Date Diagnosis [...] as needed for cough. Advised patient that Warriormine contains antihistamine and cough suppressant and to be cautious using other OTC cold medications. Patient to follow upwith PCP if symptoms do not improve. Immediate eval if SOB, difficulty breathing, chest pain, dizziness, or other concerning symptoms. Patient verbalizes understanding and is agreeable to treatment plan [employer] [employer] Other Evaluation + Plan note No data available for this section [facility] noteNo InformationNortGuthrie [facility] [place] [employer] Other Evaluation note* Diagnosis Onset Date Resolution Status Arthralgia acuteLumbar painacuteType II diabetes mellitusacute [facility] Work Phone: Evaluation note* Diagnosis Onset Date Resolution Status Arthralgia acuteLumbar painacuteType II diabetes mellitusacuteBilateral hip painacute [facility] Work Phone: Evaluation note* Diagnosis Onset Date Resolution Status Arthralgia acuteLumbar painacuteType II diabetes mellitusacuteBilateral hip painacuteLumbar painacute [facility] Work Phone: Evaluation note* Diagnosis Onset Date Resolution Status Submandibular abscess acuteChronic obstructive pulmonary disease, unspecifiedacuteEsophageal abnormalityacuteMass of left submandibular regionacute [facility] Work Phone: Evaluation note* Diagnosis Onset Date Resolution Status Chronic obstructive pulmonary disease, u nspecified acuteEsophageal abnormalityacuteMass of left submandibular regionacute [facility] Work Phone: Evaluation note* Diagnosis Onset Date Resolution Status 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Hiatal herniaacute [facility] Work Phone: Evaluation note* Diagnosis Esophageal dysphagia- Primary Dysphagia, pharyngoesophageal phase Neck mass Swelling, mass, or lump in head and neck documented in this encounter [facility] HealthcareEvaluation note* Diagnosis Dysphagia, unspecified type- Primary Black stools Nonspecific abnormal finding in stool contents Gastroesophageal reflux disease, unspecified whether esophagitis present Abnormal esophagram documented in this encounter [facility]* Diagnosis Dysphagia, unspecified type Black stools Nonspecific abnormal finding in stool contents documented in this encounter [facility]* Diagnosis Onset Date Resolution Status Admit Date Chronic coughing acuteOctober 2024 1:27pm [facility] Work Phone: History general Narrative - Reported* Type Description Date Medical History Asthma Medical Historyskin cancer-lipSurgical HistoryLeft lung [id number] HistoryL4 and L5 disc [id number] Historyright lip basal cell cancer [id number] Historycarpal tunnel [id number] History tonsillectomyHospitalization History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Hospitalization Historypneumonia [facility] Other Hospital Discharge instructions No data available for this section [facility]iaThe [facility] Discharge instructionsAmbulatory Orders* Referral to ENT Time Frame: 03/18/24, Location: None Selected [facility] Work Phone: Hospital Discharge instructionsAmbulatory Orders* Referral to Urology Time Frame: 10/15/24, Location: None [facility] Work Phone: InstructionsNot on filedocumented in this encounter [facility] SystemInstructionsNot on filedocumented in this encounter [facility] SystemInstructionsNot on filedocumented in this encounter [facility] note No data available for this section [facility]healthReason for referral (narrative)No reason for referral information availableTrihealth Work Phone: Summary Purpose Family History Relationship [...] [facility] Referring Provider First Name Jeremy Referring Provider Last Name Sona Referring Provider Specialty [facility] [employer] Referred Organization [facility] Referred Provider Sai Martinez Referred Address ,[place], [place],[address] Referred Provider Specialty Surgery Referral Priority Routine General Notes Es Camilo 11:38:02 AM >received today, attachments made, notes locked, referral faxed Reason 01/28/23 Access Or tho - B shoulder pain L>R - hopes for injections. Diagnosis 1 Pain in right should er (M25.511) Referral Organization [facility] Referring Provider First Name Jeremy Referring Provider Last Name Sona Referring Provider Specialty [facility] [employer] Referred Organization [facility] Referred Provider Barbie Jesus Referred Address ,[place], [place],[address] Referred Provider Specialty Orthopaedic Surgery Referral Priority [...] in right should er (M25.511) Referral Organization [facility] Lisha nelson Referring Provider First Name Jeremy Referring Provider Last Name Sona Referring Provider Specialty [facility] Referred Organization [facility] Referred Provider Barbie Jesus Referred Address ,[place], [place],[address] Referred Provider Specialty Orthopaedic Surgery Referral Priority [...] reinier.ReasonCommentsNew PatientCare Coordinator - OtherReasonCommentsNeck MassCT @ [facility]>NOMSReasonCommentspostive cologuard LAST COLONOSCOPY WAS OVER 20 YEARS AGO.Difficulty SwallowingNauseaVomiting Abdominal PainRUQ PAIN (unrecognized sect ion and content) No Status Records FoundNo Status Records FoundNo Status Records FoundNo Status Records FoundNo Status Records FoundNo Status Records FoundNo Status Records FoundNo Status Records Found INFORMATION SOURCE (unrecogn ized section and content) DATE CREATED AUTHOR 12/04/2022 [facility] DATE CREATED AUTHOR AUTHOR'S ORGANIZ ATION 04/08/2024 [facility] DATE CREATED AUTHOR AUTHOR'S ORGANIZ ATION 05/23/2024 [facility] DATE CREATED AUTHOR AUTHOR'S ORGANIZ ATION 05/29/2024 [facility] DATE CREATED AUTHOR AUTHOR'S ORGANIZ ATION 06/12/2024 [facility] DATE CREATED AUTHOR AUTHOR'S ORGANIZ ATION 11/06/2024 [facility] DATE CREATED AUTHOR AUTHOR'S ORGANIZ ATION 11/11/2024 [facility] DATE CREATED AUTHOR AUTHOR'S ORGANIZ [...] DateEnd Date Jeremy Magallanes MD [address] [place] [phone] PCP - Generalmily Medicine01/23/23 Team Status: Inactive Member Role Status Dates Jeremy Magallanes MD Attending Provider Active St art: September 13, 2023 End: September 13, 2023Team MemberRelationshipSpecialtyStart DateEnd Date Jeremy Magallanes MD [address] [facility] [place] [phone] Referringmily Medicine05/12/24Team MemberRelationshipSpecialtyStart DateEnd Date Jeremy Magallanes MD [address] [place] [phone] [facility]23Team MemberRelationshipSpecialtyStart DateEnd Date Jeremy Magallanes MD [address] [place] [phone] PCP - Generalmily Medicine01/23/23Team MemberRelationshipSpecialtyStart DateEnd Date Jeremy Magallanes MD [address] [place] [phone] [facility] - [facility]01/23/23Team MemberRelationshipSpecialtyStart DateEnd Date Jeremy Magallanes MD [address] [place] [address] PCP - [facility]06/03/19Team MemberRelationshipSpecialtyStart Date End Date Jeremy Magallanes MD [address] [place] [address] PCP - [facility]06/03/19Team MemberRelationshipSpecialtyStart Date End Date Jeremy Magallanes MD [address] [place] [address] PCP - [facility]06/03/19Team MemberRelationshipSpecialtyStart Date End Date Jeremy Magallanes MD [address] [place] [address] PCP - [facility]06/03/19 Team Status: Active Member Role [...] DateEnd Date Jeremy Magallanes MD [facility]CP - [facility]01/23/23 Goals (unrecognized section and content) Goals may be documented in a n alternate section Source Comments (unrecognize d section and content) In the event this informatio n is protected by the Federal Confidentiality of Alcohol and Drug Abuse Patient Records regulations: The Federal rules restrict any use of the information to criminally investigate or prosecute any alcohol or drug abuse patient.[facility] FOR RECORDS PERTAINING TO PATIENTS WHO ARE [...] BE BASED ON THE PRIMARY CLINICAL RECORDS. [facility]. provides no warranty or guarantee of the accuracy or completeness of information in this document.
--- NOTE | 2025-07-28 08:05 | P.CN_ITS ---
Consult Note: HPI Data of Consult Patient: known to practice within the last 3 years Consult date: 07/28/25 Requesting Physician: Janneth Villalta NP Primary Care Provider: Hannah Gallo MD Consult Narrative Reason for consult: right flank and thoracic pain Narrative: Nicholas Ziegler a pleasant 64 year old male presents for evaluation of chronic right middle and low back pain, has had persistent lumbar and thoracic pain >12 months unresponsive to >6 weeks of PT/HEP, heat, ice, tylenol, and allergy to NSAIDs. Pain today 5/10 varying pain, increasing with standing, walking, pushing, pulling, pending, lifting. pain improved mildly with sleep, tylenol #3 and baclofen. pt has not yet received zynex TENS. denies injury or fall since last visit. overall noting improvement post prior TPI. cc:: CC: Janneth Villalta NP Review of Systems ROS Musculoskeletal Reports: back pain; Denies: extremity pain or joint pain PFSH [facility] Medical History Melanoma ?C43.9 - Malignant melanoma of skin, unspecified (ICD-10) Tobacco user ?Z72.0 - Tobacco use (ICD-10) Type 2 diabetes mellitus with hyperglycemia ?E11.65 - Type 2 diabetes mellitus with hyperglycemia (ICD-10) Acute exacerbation of chronic obstructive pulmonary disease (COPD) ?J44.1 - Chronic obstructive pulmonary disease with (acute) exacerbation (ICD-10) Lumbar degenerative disc disease ?M51.36 - Other intervertebral disc degeneration, lumbar region (ICD-10) Influenza ?J11.1 - Influenza due to unidentified influenza virus with other respiratory manifestations (ICD-10) Acute bronchospasm ?J98.01 - Acute bronchospasm (ICD-10) Postoperative pain, acute, shoulder ?G89.18 - Other acute postprocedural pain (ICD-10) ?M25.519 - Pain in unspecified shoulder (ICD-10) Fever ?R50.9 - Fever, unspecified (ICD-10) Acute pain of right shoulder ?M25.511 - Pain in right shoulder (ICD-10) Rotator cuff arthropathy of right shoulder ?M12.811 - Other specific arthropathies, not elsewhere classified, right shoulder (ICD-10) Diabetes ?E11.9 - Type 2 diabetes mellitus without complications (ICD-10) COPD (chronic obstructive pulmonary disease) ?J44.9 - Chronic obstructive pulmonary disease, unspecified (ICD-10) Surgical History H/O colonoscopy ?Z98.890 - Other specified postprocedural states (ICD-10) History of carpal tunnel release ?Z98.890 - Other specified postprocedural states (ICD-10) H/O lumbosacral spine surgery ?Z98.890 - Other specified postprocedural states (ICD-10) S/P right rotator cuff repair ?Z98.890 - Other specified postprocedural states (ICD-10) Family History Other Family history of COPD (chronic obstructive pulmonary disease) Family history of cancer Family history of hypertension Social History Within the past year, how often did you have a drink containing alcohol: never Score interpretation: A score less than 4 is consistent with normal alcohol consumption. Smoking status: Current every day smoker Non-prescribed substance use: denies use Previous occupational history: retired Highest level of school completed/degree received: GED or equivalent Are you now , , , , never or living with a partner: In a typical week, how many times do you talk on the telephone with family, friends, or neighbors: 3 or more times per week How often do you get together with friends or relatives: 3 or more times per week How often do you attend adventism or rastafarian services: never Do you belong to any clubs or organizations such as adventism groups unions, fraternal or athletic groups, or school groups: no Total score: 2 Score interpretation: A score of greater than or equal to 2 indicates the lowest level of social isolation. Little interest or pleasure in doing things: not at all Feeling down, depressed, or hopeless: not at all Feel stressed/tense/nervous/anxious/difficulty sleeping: not at all Do you think of yourself as: straight/heterosexual Gender Identity: male Meds Home Medications and Allergies Home Medications ?Medication ?Instructions ?Recorded ?Confirmed ?Type glipizide 5 mg-metformin 500 mg 1 tab PO BID 08/23/23 05/24/25 History tablet lancets (Accu-Chek Fastclix Lancet 09/08/23 09/08/23 History Drum) albuterol sulfate 90 mcg/actuation 2 puff inhalation Q 6H PRN 06/01/24 05/24/25 History aerosol inhaler shortness of breath or wheez ing acetaminophen 300 mg-codeine 30 mg See Rx Instructions .Route 09/09/24 05/24/25 Rx tablet .COMPLEX PRN pain #180 tabs ondansetron 4 mg disintegrating mg 04/05/25 History tablet cyclobenzaprine 10 mg tablet 10 mg PO HS 05/25/2503/12 History omeprazole 40 mg capsule,delayed 40 mg PO DAILY 05/25/25 History release methocarbamol 750 mg tablet 750 mg PO Q8H #20 tabs 09/12 Rx acetaminophen 300 mg-codeine 30 mg See Rx Instructions .Route 06/24/25 Rx tablet .COMPLEX PRN pain #180 tabs Allergies Allergy/AdvReac Type Severity Reaction Status Date / Time ibuprofen (From [facility]) AdvReac Mild Hives Verified 06/19/25 20:17 Exam Constitutional Documenting provider has reviewed patient's vital signs: yes Common normals: no apparent distress, oriented x3 and alert General appearance: cooperative HENMT Common normals: normocephalic, hearing grossly normal bilaterally and moist oral mucous membranes Head and scalp: normocephalic Eye Common normals: PERRL Pupil: PERRL Neck & C-Spine Common normals: full ROM General: normal visual inspection Chest Common normals: inspection of chest normal Respiratory Common normals: normal respiratory effort, no retractions and no use of accessory muscles Back & Pelvis Thoracic spine/upper back: pain with ROM and thoracic spinal tenderness Lumbar spine/lower back: ROM limited, pain with ROM, paraspinal muscle tenderness and straight leg raise negative bilaterally; no paraspinal muscle spasm Sacroiliac joints: SI joints normal Other: sensation intact BLE strength 5/5 in BLE Extremity Common normals: normal to inspection and full ROM Neuro Common normals: oriented x3 Sensorium/orientation: alert Psych Common normals: mental status grossly normal, thought process normal, cooperative, affect normal, speech normal and activity/motor behavior normal Speech: normal speech Thought process: normal thought process Results Imaging thoracic mri: Attestation: I have reviewed the pertinent imaging results. Radiologist's impression: The thoracic vertebral body heights, alignment and bone marrow signal is unremarkable. The thoracic cord demonstrates normal signal and morphology. Mild hypertrophic changes and ligamentum flavum and facet degeneration notably T4-T5 and at T11-T12. This results in mild canal narrowing at T11-T12. Otherwise no significant disc disease, disc protrusion, central canal or neural foraminal narrowing identified elsewhere. Paraspinal soft tissues are unremarkable. Additional Findings Additional findings: If on a controlled substance or opioids, I have checked an [place] report on this patient and there are no aberrancies noted in the prescribing history.??If on a controlled substance or opioid a drug screen was completed and reviewed within the last year, and if there has not been a drug screen completed we ordered one today to monitor higher risk, state monitored pain medication use. As part of providing excellent, safe, comprehensive care, the following was completed at our patient's visit: 1. A medication reconciliation and review to ensure accurate knowledge of current/active medications, including asking our patients to inform us about any [id number] medications or herbal remedies/nutritional supplements/alternative remedies. 2. A review to specifically ensure our patients have had annual screening for screening for depression, screening for tobacco use, and screening for unhealthy alcohol use. For concerning screenings had a discussion with the patient, provided patient education, and recommended follow-up with primary care provider when appropriate. If patient noted with a risk of falling, they received education on strength, gait, and balance training to prevent future risk of falling. Portions of this note may have been carried over from the previous visit and updated as appropriate. Please note this office utilizes paper charting in addition to the electronic medical record. A list of current medications, vitals, and PMH is available there as the clinical staff outside of myself do not have access to [employer] charting during the clinic day operations. As part of providing quality comprehensive care the current medications, vitals, and PMH were reviewed in the paper chart. Assessment and Plan Assessment and Plan (1) Myalgia, other site: (2) Intercostal neuralgia: Assessment and Plan: The patient has had over 3 months of moderate to severe right flank and thoracic pain with functional impairment and inadequate response to conservative care including NSAIDS (unless there are contraindication such as concurrent blood thinners), multiple oral or topical pain medications, and home exercise program/physical therapy.? Patient has completed >6 weeks of guided home exercise program and/or formal physical therapy program without relief of their symptoms.? I have reviewed the imaging of the thoracic and lumbar spine and no red flags were identified.? The Oswestry Disability Index was completed, and the patient scored a 42%.? The patient noted the following:?? moderate to severe pain impacting ADLs, sitting, standing, sleeping, social life, travel (3) Right flank pain, chronic: (4) Failed back syndrome: (5) Chronic prescription opiate use: Assessment and Plan: I feel these medications are improving the patient's quality of life and allow them to tolerate activities of daily living as well as participate in recreational activity.? The patient does not report intolerable side effects. The patient is NOT opioid naive and non-pharmacologic and non-opioid treatment has failed to significantly relieve the patient's pain and improve functionality. The patient has a diagnosis that is related to a somatic or visceral pain etiology. ? ?? I reviewed with the patient the potential risks and side effects with the use of? opioid medications including but not limited to respiratory depression,? sedation, and even . Within the last 12 months I have verified the patient has access to naloxone should? these effects occur. The patient was advised to let? their family know they had Naloxone in case they would need to administer? the medication. I advised the patient to avoid the use of any other? sedation substances including alcohol, THC, and benzodiazepines while? taking opioid medications due to the risk of compounding side effects and? detrimental outcomes. within the last 12 months I have reviewed the MANAGER LOCATION, pain treatment agreement and urine drug screen.? ?? A drug screen was completed within the last year, and no aberrancies were noted regarding their use of controlled substances. The patient understands they are subject to the terms and conditions of the pain contract that they have signed. ? ?? I have checked an OARRS report on this patient today and there are no aberranci es noted in the prescribing history.? Plan pain overall improved and managed with current medications. pt pending zynex tens unit to be utilized 15minutes PRN for pain/spasms to low back consider scs trial in the future continue baclofen 5-10mg bid prn pain/spasms continue tylenol #3 1-2 tabs tid prn moderate to severe pain cannot take NSAIDs due to baretts esophagus continue HEP as tolerated f/u 3 months, sooner if needed
== END 2025-07-28 07:51 | disposition home or self-care (01) ==
LOC: PM 07:51
PROVIDERS: PCP Family Medicine; Visit Provider Nurse Practitioner
DX: M79.18 Myalgia, other site (principal); G58.0 Intercostal neuropathy; R10.31 Right lower quadrant pain; M96.1 Postlaminectomy syndrome, not elsewhere classified; Z79.891 Long term (current) use of opiate analgesic
CPT/HCPCS: G0463